=== PATIENT | male | born 1955 | race Caucasian/White ===

== ENCOUNTER 2016-06-19 18:07 | Observation (INO) | payer BC ==
[~2016-06-19] VITALS: Ht 172.7 cm; Wt 102.5 kg
[2016-06-19] MEDS ORDERED: SODIUM CHLORIDE 0.9% 1000ML 500 ML IV STA (18:19)
[2016-06-19 18:30] LABS: HEMATOCRIT 40.8 % (42-52); MEAN CELL VOLUME 78.6 fL (80-100); MEAN CORPUSCULAR HEMOGLOBIN 27.4 pg (25-34); MEAN CORPUSCULAR HGB CONC 34.8 g/dl (32-36); MEAN PLATELET VOLUME 9.7 fL (7.4-10.4); PLATELET COUNT 126 K/uL (130-400); RED BLOOD COUNT 5.19 M/uL (4.7-6.1); WHITE BLOOD COUNT 7.39 K/uL (4.8-10.8)
--- NOTE | 2016-06-19 18:31 | EMERGENCY ROOM VISIT NOTE ---
History Report prepared by Felipe: Leda Gomez Under the Supervision of: Dr. Guerrero Amaro M.D. First contact with patient: 18:12 Chief Complaint: CHEST PAIN Stated Complaint: CHEST PAIN History of Present Illness The patient is a 61 year old male who presents to the Emergency Room with complaints of persistent chest pain that began yesterday and worsened today. He currently rates his discomfort as a 9/10 in severity. The patient states that his chest pain is non-exertional, and states that he notices the pain more with rest. He additionally associates shortness of breath, pain radiating into his back, and difficulty getting a deep breath with his symptoms today. The patient denies the pain radiating into his shoulders or arms. He notes a history of a heart murmur and asthma. The patient denies any history of COPD. Per nursing staff, the patient received 2 nitro, 4 baby aspirin, and 100 mcg of Fentanyl prior to arrival. The patient states that his symptoms were alleviated with the medications. Source of History: patient Onset: yesterday Position: chest Symptom Intensity: 9/10 Timing: worsening, other (persistent) Modifying Factors (Worsening): rest Associated Symptoms: + SOB, + back pain Review of Systems See HPI for pertinent positives & negatives. A total of 10 systems reviewed and were otherwise negative. Past Medical & Surgical Medical Problems: (1) Asthma (2) CAD (coronary artery disease) (3) Chest pain (4) CKD (chronic kidney disease), stage III (5) DM type 2 (diabetes mellitus, type 2) (6) Dyslipidemia (7) Hypertension (8) LBBB (left bundle branch block) (9) Mild aortic stenosis (10) Nonischemic cardiomyopathy Surgical Problems: (1) H/O cardiac catheterization (2) S/p adrenal gland surgery Family History No pertinent family history stated Social History Marital Status: Housing Status: lives with significant other Occupation Status: employed Current/Historical Medications Scheduled Aspirin (Aspirin Ec), 81 MG PO DAILY Carvedilol (Carvedilol), 12.5 MG PO BID Cholecalciferol (Vitamin D3), 2,000 INTER.UNIT PO DAILY Enalapril Maleate (Enalapril Maleate), 1 TAB PO BID Gabapentin (Neurontin), 300 MG PO TID Hydralazine Hcl (Apresoline), 10 MG PO BID Insulin Aspart (Novolog Flexpen), 7 UNITS SQ QAM Insulin Aspart (Novolog Flexpen), 14 UNITS SQ UD Insulin Glargine (Lantus Solostar), 50 UNITS SC HS Rosuvastatin Calcium (Crestor), 40 MG PO DAILY Terazosin (Hytrin), 10 MG PO HS Scheduled PRN Albuterol (Ventolin Hfa), 2 PUFFS INH Q4H PRN for SOB/Wheezing Allergies Coded Allergies: No Known Allergies (Unverified , 06/19/16) Physical Exam Vital Signs Date Time Temp Pulse Resp B/P Pulse Ox O2 Delivery O2 Flow Rate FiO2 06/19/16 22:18 69 22 145/87 97 Nasal Cannula 06/19/16 21:20 66 17 137/81 96 Room Air 06/19/16 19:45 68 169/102 98 2.0 06/19/16 19:34 71 20 171/82 98 2.0 06/19/16 18:25 Room Air 06/19/16 18:24 73 06/19/16 18:22 37.0 20 179/107 95 Room Air Physical Exam GENERAL: Patient is in no acute distress. HEENT: No acute trauma, normocephalic atraumatic, mucous membranes moist, no nasal congestion, no scleral icterus. NECK: No stridor, no adenopathy, no meningismus, trachea is midline. CHEST: Tender across the anterior sternal chest wall and to the lower bilateral anterior ribs. LUNGS: Clear to auscultation bilaterally, no wheeze, no rhonchi, breath sounds equal. HEART: 3/6 systolic murmur with a regular rate and rhythm ABDOMEN: Soft, nontender, bowel sounds positive, no hernias, no peritonitis. EXTREMITIES: No cyanosis or edema, full range of motion of all the joints without pain or difficulty, no signs for acute trauma. NEUROLOGIC: Oriented x 3, no acute motor or sensory deficits, no focal weakness. SKIN: No rash, no jaundice, no diaphoresis. Medical Decision & Procedures ER Provider Diagnostic Interpretation: X-ray results as stated below per interpretation by me and the radiologist: SINGLE VIEW CHEST CLINICAL HISTORY: Atypical chest pain. FINDINGS: An AP, portable, upright chest radiograph is obtained. No prior studies are available for comparison at the time of dictation. The examination is degraded by portable technique, large body habitus, and patient rotation. The heart is mildly enlarged and there is atherosclerotic calcification of the thoracic aorta. The pulmonary vasculature is noncongested. The lungs and pleural spaces are clear. No pneumothorax is seen. The skeletal structures are osteopenic. The bony thorax is grossly intact. Mild degenerative change is noted in the thoracic spine. IMPRESSION: Cardiac enlargement with no acute cardiopulmonary abnormality. Electronically signed by: Guerrero Hebert M.D. 06/19/2016 6:40 PM Dictated Date/Time: 06/19/2016 6:39 PM Laboratory Results 06/19/16 17:30 06/19/16 17:30 Test 06/19/16 17:30 06/19/16 22:25 Red Blood Count 5.19 M/uL (4.7-6.1) Mean Corpuscular Volume 78.6 fL (80-100) Mean Corpuscular Hemoglobin 27.4 pg (25-34) Mean Corpuscular Hemoglobin Concent 34.8 g/dl (32-36) RDW Standard Deviation 37.4 fL (36.4-46.3) RDW Coefficient of Variation 13.1 % (11.5-14.5) Mean Platelet Volume 9.7 fL (7.4-10.4) Prothrombin Time 10.4 SECONDS (9.0-12.0) Prothromb Time International Ratio 1.0 (0.9-1.1) Activated Partial Thromboplast Time 24.1 SECONDS (21.0-31.0) Partial Thromboplastin Ratio 0.9 Anion Gap 10.0 mmol/L (3-11) Est Creatinine Clear Calc Drug Dose 51.0 ml/min Estimated GFR () 49.0 Estimated GFR (Non- 42.3 BUN/Creatinine Ratio 18.8 (10-20) Calcium Level 9.2 mg/dl (8.5-10.1) Magnesium Level 2.0 mg/dl (1.8-2.4) Total Bilirubin 0.6 mg/dl (0.2-1) Aspartate Amino Transf (AST/SGOT) 23 U/L (15-37) Alanine Aminotransferase (ALT/SGPT) 27 U/L (12-78) Alkaline Phosphatase 84 U/L (45-117) Total Protein 6.9 gm/dl (6.4-8.2) Albumin 3.3 gm/dl (3.4-5.0) Globulin 3.6 gm/dl (2.5-4.0) Albumin/Globulin Ratio 0.9 (0.9-2) Lipase 118 U/L (73-393) Troponin I 0.123 ng/ml (0-0.045) Laboratory results reviewed by me. Medications Administered Medications (Trade) Dose Ordered Sig/Larry Route Start Time Stop Time Status Last Admin Dose Admin Sodium Chloride (Nss 1000ml) 500 ml @ 999 mls/hr Q31M STAT IV 06/19/16 18:19 06/19/16 18:49 DC 06/19/16 18:19 999 MLS/HR Nitroglycerin (Nitroglycerin 2% Oint) 1 inch NOW STAT EXT 06/19/16 19:24 06/19/16 19:25 DC 06/19/16 19:41 1 INCH Potassium Chloride (Klor-Con M10) 40 meq NOW STAT PO 06/19/16 22:02 06/19/16 22:03 DC 06/19/16 22:17 40 MEQ Nitroglycerin (Nitrostat Tab) 0.4 mg NOW STAT SL 06/19/16 22:02 06/19/16 22:03 DC 06/19/16 22:17 0.4 MG ECG Indication: chest pain Rate (beats per minute): 96 Rhythm: sinus rhythm Findings: LBBB, no acute ischemic change ED Course 1812: The patient was evaluated in room B11B. A complete history and physical exam was performed. 1818: Ordered 500 ml @ 999 mls/hr IV. 1923: Ordered Nitroglycerin 1 inch EXT. 1925: I reevaluated the patient and he is resting comfortably. I discussed the exam findings with him and I discussed the treatment plan. He verbalized complete understanding and agreement. He will be evaluated for further treatment. 2032: I discussed the patient's case with Nandini Humphries. He is going to evaluate the patient for further treatment. Medical Decision The patient is a 61 year old male who presents to the ED with complaints of chest pain. Differential diagnoses considered include musculoskeletal pain, cardiac ischemia, PE, aortic dissection, RI, pancreatitis, anemia, electrolyte imbalance. There is no leukocytosis or concerning anemia. No significant electrolyte abnormality, some mild renal insufficiency was noted. There was no hepatitis or coagulopathy. EKG shows a sinus rhythm with a left bundle branch block, no acute ischemia. There were no old EKGs to use for comparison. Cardiac enzyme testing times one is slightly elevated, this could be consistent with cardiac strain or injury. Chest x-ray does not show pneumonia or CHF. There was no pancreatitis. The patient presents with chest pain and some shortness of breath. His pain is not necessarily exertional. His pain is somewhat reproducible on exam but he does have cardiac risk factors. I do think further cardiac workup is warranted. The patient had received aspirin and nitroglycerin in route which seems to have helped his discomfort. He was given Nitropaste and IV saline while in the emergency room. I spoke to the patient and the rn case manager. I talked with the on-call hospitalist. Admission/observation is warranted. Consults Time Called: [id number] Consulting Physician: Nandini Humphries Returned Call: 2032 I discussed the patient's case with Nandini Humphries. He is going to evaluate the patient for further treatment. Impression Primary Impression: Precordial chest pain Additional Impressions: Shortness of breath Elevated troponin Scribe Attestation The scribe's documentation has been prepared under my direction and personally reviewed by me in its entirety. I confirm that the note above accurately reflects all work, treatment, procedures, and medical decision making performed by me. Departure Information Dispostion Being Evaluated By Hospitalist Problem Qualifiers
--- NOTE | 2016-06-19 18:41 | DIAGNOSTIC IMAGING REPORT ---
SINGLE VIEW CHEST CLINICAL HISTORY: Atypical chest pain. FINDINGS: An AP, portable, upright chest radiograph is obtained. No prior studies are available for comparison at the time of dictation. The examination is degraded by portable technique, large body habitus, and patient rotation. The heart is mildly enlarged and there is atherosclerotic calcification of the thoracic aorta. The pulmonary vasculature is noncongested. The lungs and pleural spaces are clear. No pneumothorax is seen. The skeletal structures are osteopenic. The bony thorax is grossly intact. Mild degenerative change is noted in the thoracic spine. IMPRESSION: Cardiac enlargement with no acute cardiopulmonary abnormality. Electronically signed by: Guerrero Hebert M.D. 06/19/2016 6:40 PM Dictated Date/Time: 06/19/2016 6:39 PM
[2016-06-19 18:47] LABS: BUN/CREATININE RATIO 18.8 (10-20); CALCIUM 9.2 mg/dl (8.5-10.1); CREATININE 1.7 mg/dl (0.60-1.40); POTASSIUM 3.6 mmol/L (3.5-5.1)
[2016-06-19 19:05] LABS: ALB/GLOB RATIO 0.9 (0.9-2)
[2016-06-19 19:17] LABS: PARTIAL THROMBOPLASTIN RATIO 0.9; PROTHROMBIN TIME (PATIENT) 10.4 SECONDS (9.0-12.0)
[2016-06-19] MEDS ORDERED: NITROGLYCERIN OINT 2% 1GM PACKET EXT STA (19:24)
[2016-06-19] MEDS ORDERED: TERA5CAP PO (19:43)
[2016-06-19] MEDS ORDERED: PROAIR PO (19:43)
[2016-06-19] MEDS ORDERED: ROSU40TA PO (19:43)
[2016-06-19] MEDS ORDERED: ENAL10TA88 PO (19:43)
[2016-06-19] MEDS ORDERED: HYDR-4715 PO (19:43)
[2016-06-19] MEDS ORDERED: ASPI81TA28 PO (19:43)
[2016-06-19] MEDS ORDERED: CHOL20007 PO (19:43)
[2016-06-19] MEDS ORDERED: GABA-113 PO (19:43)
[2016-06-19] MEDS ORDERED: NVLGIPEN SQ (19:43)
[2016-06-19] MEDS ORDERED: NVLGI/PEN SQ (19:43)
[2016-06-19] MEDS ORDERED: CRG25 PO (19:43)
[2016-06-19] MEDS ORDERED: INSDGIPEN SC (19:43)
[2016-06-19] MEDS ORDERED: PRVHFAIN INH (21:59)
[2016-06-19] MEDS ORDERED: ENAL20TA PO (21:59)
[2016-06-19] MEDS ORDERED: NITROGLYCERIN 0.4 MG SL PER TAB CHARGE SL STA (22:02)
[2016-06-19] MEDS ORDERED: POTASSIUM CHLORIDE 10 MEQ TABCR PO STA (22:02)
--- NOTE | 2016-06-19 22:38 | History and Physical ---
History & Physical Date & Time of Service: Jun 19, 2016 at 21:42 Chief Complaint: Chest Pain Primary Care Physician: Nilda Moncada D.O. History of Present Illness Source: patient, clinic records This is a 61 y/o male with PMH of mild , nonobstructive CAD, mild nonischemic cardiomyopathy EF 45-49%, DM type 2, CKD, HTN, HL, who presents to the ED with chest pain. Pt states CP has been intermittent x 2 days. Pain described as "someone sitting on my chest" in substernal area with radiation in band like distribution to his back. Initial episode started when walking in his yard lasting and lasted a few minutes. Then today while sitting watching TV he developed recurrent chest pain which was more severe. He reports associated SOB and dizziness. His called 911. En route patient received nitro spray x 2, Fentanyl, and 4 baby ASA with resolution of his pain. Patient notes recent TESFAYE for past few weeks especially with walking uphill. He admits to blood sugar intermittently elevated due to dietary indiscretion. BP in clinic trended 130s- 140s in Feb and Mar 2016. Has not check BP since then. Has been compliant with BP meds although due for evening meds now. Admits to salting his food. He denies diaphoresis, fevers/ chills, URI, cough, wheezing, nausea, edema, calf pain, abnormal bleeding. No recent travel. Had trigger finger surgery 2-3 weeks ago in [place]. Pt reports prior cardiac catheterization in [facility]. As per Epic record this was done 03/29/2012 showing mild nonobstructive CAD. Past Medical/Surgical History Medical Problems: (1) Asthma Status: Chronic (2) CAD (coronary artery disease) Permanent Comment: nonobstructive Status: Chronic (3) CKD (chronic kidney disease), stage III Status: Chronic (4) DM type 2 (diabetes mellitus, type 2) Status: Chronic (5) Dyslipidemia Status: Chronic (6) Hypertension Status: Chronic (7) LBBB (left bundle branch block) Status: Chronic (8) Mild aortic stenosis Status: Chronic (9) Nonischemic cardiomyopathy Permanent Comment: EF 45-49% on echo 08/2014 Status: Chronic Surgical Problems: (1) H/O cardiac catheterization Permanent Comment: 03/29/2012- mild nonobstructive CAD Status: Chronic (2) S/p adrenal gland surgery Status: Chronic Family History Diabetes mellitus SISTER BROTHER FH: CHF (congestive heart failure) MOTHER Hypertension SON Social History Smoking Status: Never Smoker Smokeless Tobacco Use: Yes (1/2 to 1 can per day) Alcohol Use: occasionally (1 beer per year) Drug Use: none Marital Status: Housing status: lives with significant other Occupational Status: employed Allergies Coded Allergies: No Known Allergies (Unverified , 06/19/16) Home Medications Scheduled Aspirin (Aspirin Ec), 81 MG PO DAILY Carvedilol (Carvedilol), 12.5 MG PO BID Cholecalciferol (Vitamin D3), 2,000 INTER.UNIT PO DAILY Enalapril Maleate (Enalapril Maleate), 1 TAB PO BID Gabapentin (Neurontin), 300 MG PO TID Hydralazine Hcl (Apresoline), 10 MG PO BID Insulin Aspart (Novolog Flexpen), 7 UNITS SQ QAM Insulin Aspart (Novolog Flexpen), 14 UNITS SQ UD Insulin Glargine (Lantus Solostar), 50 UNITS SC HS Rosuvastatin Calcium (Crestor), 40 MG PO DAILY Terazosin (Hytrin), 10 MG PO HS Scheduled PRN Albuterol (Ventolin Hfa), 2 PUFFS INH Q4H PRN for SOB/Wheezing Review of Systems 10 point review of systems performed with pertinent positives and negatives noted in HPI. Physical Exam Vital Signs Date Time Temp Pulse Resp B/P Pulse Ox O2 Delivery O2 Flow Rate FiO2 06/19/16 21:20 66 17 137/81 96 Room Air 06/19/16 19:45 68 169/102 98 2.0 06/19/16 19:34 71 20 171/82 98 2.0 06/19/16 18:25 Room Air 06/19/16 18:24 73 06/19/16 18:22 37.0 20 179/107 95 Room Air General Appearance: WD/WN, no apparent distress, + pertinent finding (pleasant alert 61 year old male, poor hygiene) Head: normocephalic, atraumatic Eyes: normal inspection, sclerae normal ENT: normal ENT inspection, hearing grossly normal Neck: supple, no JVD, trachea midline Respiratory/Chest: lungs clear, normal breath sounds, no respiratory distress, no accessory muscle use Cardiovascular: regular rate, rhythm, no murmur, normal peripheral pulses Abdomen/GI: normal bowel sounds, non tender, soft Extremities/Musculoskelatal: no calf tenderness, no pedal edema Neurologic/Psych: alert, normal mood/affect, oriented x 3, + pertinent finding (grossly nonfocal) Skin: normal color, warm/dry Diagnostics Laboratory Results Results Past 24 Hours Test 06/19/16 17:30 06/19/16 21:32 Range/Units White Blood Count 7.39 4.8-10.8 K/uL Red Blood Count 5.19 4.7-6.1 M/uL Hemoglobin 14.2 14.0-18.0 g/dL Hematocrit 40.8 42-52 % Mean Corpuscular Volume 78.6 80-100 fL Mean Corpuscular Hemoglobin 27.4 25-34 pg Mean Corpuscular Hemoglobin Concent 34.8 32-36 g/dl RDW Standard Deviation 37.4 36.4-46.3 fL RDW Coefficient of Variation 13.1 11.5-14.5 % Platelet Count 126 130-400 K/uL Mean Platelet Volume 9.7 7.4-10.4 fL Prothrombin Time 10.4 9.0-12.0 SECONDS Prothromb Time International Ratio 1.0 0.9-1.1 Activated Partial Thromboplast Time 24.1 21.0-31.0 SECONDS Partial Thromboplastin Ratio 0.9 Sodium Level 140 136-145 mmol/L Potassium Level 3.6 3.5-5.1 mmol/L Chloride Level 104 98-107 mmol/L Carbon Dioxide Level 26 21-32 mmol/L Anion Gap 10.0 3-11 mmol/L Blood Urea Nitrogen 32 7-18 mg/dl Creatinine 1.70 0.60-1.40 mg/dl Est Creatinine Clear Calc Drug Dose 51.0 ml/min Estimated GFR () 49.0 Estimated GFR (Non- 42.3 BUN/Creatinine Ratio 18.8 10-20 Random Glucose 228 70-99 mg/dl Calcium Level 9.2 8.5-10.1 mg/dl Total Bilirubin 0.6 0.2-1 mg/dl Aspartate Amino Transf (AST/SGOT) 23 15-37 U/L Alanine Aminotransferase (ALT/SGPT) 27 12-78 U/L Alkaline Phosphatase 84 45-117 U/L Troponin I 0.097 0-0.045 ng/ml Total Protein 6.9 6.4-8.2 gm/dl Albumin 3.3 3.4-5.0 gm/dl Globulin 3.6 2.5-4.0 gm/dl Albumin/Globulin Ratio 0.9 0.9-2 Lipase 118 73-393 U/L Diagnostic Radiology SINGLE VIEW CHEST CLINICAL HISTORY: Atypical chest pain. FINDINGS: An AP, portable, upright chest radiograph is obtained. No prior studies are available for comparison at the time of dictation. The examination is degraded by portable technique, large body habitus, and patient rotation. The heart is mildly enlarged and there is atherosclerotic calcification of the thoracic aorta. The pulmonary vasculature is noncongested. The lungs and pleural spaces are clear. No pneumothorax is seen. The skeletal structures are osteopenic. The bony thorax is grossly intact. Mild degenerative change is noted in the thoracic spine. IMPRESSION: Cardiac enlargement with no acute cardiopulmonary abnormality. EKG sinus rhythm with LBBB; hx of LBBB noted in Epic Impression Assessment and Plan CHEST PAIN Rule out ACS; risk factors include hx nonobstructive CAD on 2011 cath, DM, HTN, HL Treated with nitro x 2, fentanyl, and ASA 324 mg en route Nitro paste and nitro tab given in ER Currently chest pain free Initial troponin 0.09 EKG- LBBB- chronic CXR- no acute findings Trend serial cardiac enzymes Continue aspirin, statin, beta effie, VENKATA-I Consult cardiology HYPERTENSION BP initially elevated to 170s/100s -> improved to 140s/80s after nitro given in ER In clinic ran 130s-140s systolic in Feb and Mar 2016 Continue carvedilol, enalapril, hydralazine, terazosin DM TYPE 2 Uncontrolled; A1c 10.8 in 2015 On Lantus 50 units HS Insulin sliding scale coverage Discussed about improving diet DYSLIPIDEMIA Continue statin CKD STAGE III Creat stable from baseline Avoid nephrotoxins ASTHMA Not in acute exacerbation CODE STATUS Full code per my discussion with the patient Patient seen in collaboration with Dr. Vazquez. Please see his addendum for additional recommendations. Assessment/Plan IM ATTENDING " Patient seen and examined. Preceding documentation by Ms. Kassandra Singh PA-C, reviewed. FINAL ASSESSMENT AND PLAN as follows: 1. Chest pain hypertensive urgency versus unstable angina history of nonocclusive coronary artery disease as per records. 2. Chronic systolic heart failure secondary to ischemic cardiomyopathy, ejection fraction of 50% as of 2014 stress echo seems to be compensated. 3. Hyperlipidemia, on statin therapy. 4. DM2 insulin requiring, suboptimal control as of recent HgA1c of 10.1 (March 2016). 5. Chronic renal insufficiency. Creatinine at baseline of 1.7. 6. thrombocytopenia Observation PCU. Facilitate home blood pressure medications. Continue aspirin, beta effie, statin meds, nitro p.r.n. Follow cardiac markers 2D echo, Cardiology consult for chest pain. (Patient known to Dr. Mittal) Further eval/management of cp as per Cardiology. Continue basal insulin adjusted for n.p.o/sips status in anticipation of procedure in AM ISS BG goal 140-180. carb count coverage indicated for suboptimal blood sugar control. DVT prophylaxis, SCDs re thrombocytopenia May need IV heparin with progression of troponinemia signifying ACS Full code.
[2016-06-19] MEDS ORDERED: CARVEDILOL 25 MG TAB PO ONE (22:58)
[2016-06-19] MEDS ORDERED: ONDANSETRON INJ 2 MG/ML 2 ML VIAL IV PRN (23:00)
[2016-06-19] MEDS ORDERED: HYDROmorphone INJ 0.5 MG/0.5 ML SYR IV PRN (23:00)
[2016-06-19] MEDS ORDERED: LACTATED RINGER'S 1000ML 1,000 ML IV SCH (23:00)
[2016-06-19] MEDS ORDERED: GLUCOSE 10 TABS/TUBE PO PRN (23:00)
[2016-06-19] MEDS ORDERED: TRAMADOL HCL 50 MG TAB PO PRN (23:00)
[2016-06-19] MEDS ORDERED: DEXTROSE 50% 50 ML SYR IV PRN (23:00)
[2016-06-19] MEDS ORDERED: LORAZEPAM 2 MG/ML 1 ML VIAL IV PRN (23:00)
[2016-06-19] MEDS ORDERED: GLUCOSE 40% GEL 15 GM TUBE PO PRN (23:00)
[2016-06-19] MEDS ORDERED: NITROGLYCERIN 0.4 MG SL PER TAB CHARGE SL PRN (23:00)
[2016-06-19] MEDS ORDERED: GLUCAGON FOR INJ 1 MG VIAL SQ PRN (23:00)
[2016-06-19] MEDS ORDERED: INSULIN GLARGINE SOLOSTAR 100 UNITS/ML 3 ML PEN SC ONE (23:30)
[2016-06-19] MEDS ORDERED: LORAZEPAM INJ 0.5 MG in SYRINGE 0.75 ML IV PRN (23:30)
[2016-06-19] MEDS ORDERED: INSULIN ASPART 100 UNITS/ML 3 ML PEN SC ONE (23:30)
[2016-06-19 23:51] VITALS: BP 169/71; PULSE 65; TEMP 37.1; O2SAT 96; Ht 172.7 cm; Wt 102.5 kg
[2016-06-19 23:59] VITALS: O2SAT 95
[2016-06-20] VITALS (9 sets, daily range): BP systolic 126–158; BP diastolic 63–86; PULSE 58–86; TEMP 36.6–36.9; O2SAT 94–97
[2016-06-20] MEDS ORDERED: IV FLUIDS COMPLETED PRN (00:30)
[2016-06-20 01:41] LABS: BASO % 0.2 %; BASO ABS # 0.01 K/uL (0-0.2); COMPLETE YES; EOS % 2.9 %; HEMATOCRIT 34.6 % (42-52); IG% 0.2 %; LYMPH % 22.5 %; LYMPH ABS # 1.33 K/uL (1.2-3.4); MEAN CELL VOLUME 77.4 fL (80-100); MEAN CORPUSCULAR HEMOGLOBIN 27.3 pg (25-34); MEAN CORPUSCULAR HGB CONC 35.3 g/dl (32-36); MEAN PLATELET VOLUME 8.8 fL (7.4-10.4); MONO % 8.4 %; NEUT % 65.8 %; PLATELET COUNT 105 K/uL (130-400); RED BLOOD COUNT 4.47 M/uL (4.7-6.1); WHITE BLOOD COUNT 5.92 K/uL (4.8-10.8)
[2016-06-20 01:58] LABS: BUN/CREATININE RATIO 19.6 (10-20); CALCIUM 8.6 mg/dl (8.5-10.1); CREATININE 1.6 mg/dl (0.60-1.40); POTASSIUM 3.8 mmol/L (3.5-5.1)
[2016-06-20 02:06] LABS: CHOLESTEROL/HDL RATIO 2.2
--- NOTE | 2016-06-20 05:40 | HISTORY & PHYSICAL EXAMINATION ---
DATE OF ADMISSION: 06/19/2016 IM ATTENDING " Patient seen and examined. Preceding documentation by Ms. Kassandra Singh PA-C, reviewed. FINAL ASSESSMENT AND PLAN as follows: 1. Chest pain hypertensive urgency versus unstable angina history of nonocclusive coronary artery disease as per records. 2. Chronic systolic heart failure secondary to ischemic cardiomyopathy, ejection fraction of 50% as of 2014 stress echo seems to be compensated. 3. Hyperlipidemia, on statin therapy. 4. DM2 insulin requiring, suboptimal control as of recent HgA1c of 10.1 (March 2016). 5. Chronic renal insufficiency. Creatinine at baseline of 1.7. 6. thrombocytopenia Observation PCU. Facilitate home blood pressure medications. Continue aspirin, beta effie, statin meds, nitro p.r.n. Follow cardiac markers 2D echo, Cardiology consult for chest pain. (Patient known to Dr. Mittal) Further eval/management of cp as per Cardiology. Continue basal insulin adjusted for n.p.o/sips status in anticipation of procedure in AM ISS BG goal 140-180. carb count coverage indicated for suboptimal blood sugar control. DVT prophylaxis, SCDs re thrombocytopenia May need IV heparin with progression of troponinemia signifying ACS Full code. MTDD
[2016-06-20] MEDS: INSULIN ASPART 100 UNITS/ML 3 ML PEN SC SCH ×4 (07:00→20:51)
--- NOTE | 2016-06-20 08:56 | ECHOCARDIOGRAM REPORT ---
*NOTICE TO RECEIVING CONSTITUTION PARTY AGENCY This information is strictly Confidential and protected under [place] law. [place] law prohibits you from making any further disclosure of this information unless further disclosure is expressly permitted by the written consent of the person to whom it pertains or is authorized by law. A general authorization for the release of medical or other information is not sufficient for this purpose. Hospital accepts no responsibility if the information is made available to any other person, INCLUDING THE PATIENT. Interpretation Summary * Name: NIRANJAN VILLALTA Study Date: 06/20/2016 06:52 AM BP: 158/86 mmHg * Patient Location: S240-1 HR: 62 * : 1955 (M/d/yyyy) Gender: Male Height: 68 in * Age: 61 yrs Ethnicity: [place] Weight: 214 lb * Ordering Physician: Claudio Vazquez * Referring Physician: Self, Referred * Performed By: Han Long * * Reason For Study: CHEST PAIN * BSA: 2.1 m2 * -- Conclusions -- * The left ventricle is normal in size. * There is moderate concentric left ventricular hypertrophy. * There is moderate global hypokinesis of the left ventricle. * Septal motion is consistent with conduction abnormality. * Ejection Fraction = 35-40%. * The aortic valve leaflets are modrately calcified and restricted in mobiltiy. * Moderate to borderline severe valvular aortic stenosis. * Trace aortic regurgitation. * There is mild mitral regurgitation. Procedure Details * A complete two-dimensional transthoracic echocardiogram was performed (2D, M-mode, Doppler and color flow Doppler). Left Ventricle * The left ventricle is normal in size. * There is moderate concentric left ventricular hypertrophy. * Ejection Fraction = 35-40%. * There is moderate global hypokinesis of the left ventricle. * Septal motion is consistent with conduction abnormality. Right Ventricle * The right ventricle is normal in size and function. Atria * The left atrial size is normal. * Right atrial size is normal. * No ASD detected; PFO is not assessed. Mitral Valve * There is mild mitral annular calcification. * There is no mitral valve stenosis. * There is mild mitral regurgitation. Tricuspid Valve * The tricuspid valve is normal. * There is no tricuspid stenosis. * There is trace tricuspid regurgitation. Aortic Valve * The aortic valve is trileaflet. * The aortic valve leaflets are modrately calcified and restricted in mobiltiy. * Moderate valvular aortic stenosis. * Trace aortic regurgitation. Pulmonic Valve * The pulmonic valve is not well visualized. Great Vessels * The aortic root is normal size. Pericardium/Pleural * There is no pericardial effusion. Great Vessels * Normal inferior vena cava diameter and respiratory variation suggests normal central venous pressure. MMode 2D Measurements and Calculations IVSd 1.5 cm IVSs 1.6 cm LVIDd 5.2 cm LVIDs 4.2 cm LVPWd 2.0 cm LVPWs 2.1 cm IVS/LVPW 0.73 FS 19.2 % EDV(Teich) 129.1 ml ESV(Teich) 78.4 ml EF(Teich) 39.2 % EDV(cubed) 140.0 ml ESV(cubed) 73.9 ml EF(cubed) 47.2 % % IVS thick 10.4 % % LVPW thick 2.1 % LV mass(C)d 434.7 grams LV mass(C)dI 206.7 grams/m\S\2 LV mass(C)s 351.8 grams LV mass(C)sI 167.3 grams/m\S\2 CO(Teich) 3.0 l/min CI(Teich) 1.4 l/min/m\S\2 SV(Teich) 50.6 ml SI(Teich) 24.1 ml/m\S\2 CO(cubed) 4.0 l/min CI(cubed) 1.9 l/min/m\S\2 SV(cubed) 66.0 ml SI(cubed) 31.4 ml/m\S\2 Ao root diam 3.8 cm Ao root area 11.2 cm\S\2 ACS 0.56 cm LA dimension 3.8 cm asc Aorta Diam 3.4 cm LA/Ao 1.0 LVOT diam 2.2 cm LVOT area 4.0 cm\S\2 LVAd ap4 29.0 cm\S\2 LVLd ap4 8.2 cm EDV(MOD-sp4) 85.0 ml LVAs ap4 22.1 cm\S\2 LVLs ap4 7.9 cm ESV(MOD-sp4) 53.0 ml EF(MOD-sp4) 37.6 % LVAd ap2 27.6 cm\S\2 LVLd ap2 8.7 cm EDV(MOD-sp2) 78.0 ml LVAs ap2 20.9 cm\S\2 LVLs ap2 7.9 cm ESV(MOD-sp2) 48.0 ml EF(MOD-sp2) 38.5 % CO(MOD-sp4) 1.9 l/min CI(MOD-sp4) 0.91 l/min/m\S\2 SV(MOD-sp4) 32.0 ml SI(MOD-sp4) 15.2 ml/m\S\2 CO(MOD-sp2) 1.8 l/min CI(MOD-sp2) 0.86 l/min/m\S\2 SV(MOD-sp2) 30.0 ml SI(MOD-sp2) 14.3 ml/m\S\2 Doppler Measurements and Calculations MV E max bryan 100.3 cm/sec MV A max bryan 68.5 cm/sec MV E/A 1.5 Ao V2 max 275.3 cm/sec Ao max PG 30.8 mmHg Ao max PG (full) 28.1 mmHg Ao V2 mean 180.2 cm/sec Ao mean PG 15.3 mmHg Ao mean PG (full) 13.8 mmHg Ao V2 VTI 61.6 cm IAN(I,A) 1.2 cm\S\2 IAN(I,D) 1.2 cm\S\2 IAN(V,A) 1.2 cm\S\2 IAN(V,D) 1.2 cm\S\2 LV V1 max PG 2.7 mmHg LV V1 mean PG 1.5 mmHg LV V1 max 82.5 cm/sec LV V1 mean 57.2 cm/sec LV V1 VTI 19.3 cm MR max bryan 399.3 cm/sec MR max PG 63.8 mmHg SV(Ao) 690.6 ml SI(Ao) 328.3 ml/m\S\2 SV(LVOT) 76.7 ml SI(LVOT) 36.5 ml/m\S\2 PA V2 max 108.6 cm/sec PA max PG 4.7 mmHg
[2016-06-20] MEDS: GABAPENTIN 300 MG CAP PO SCH ×3 (09:00→20:48)
[2016-06-20] MEDS ORDERED: HydrALAZINE 10 MG TAB PO SCH (09:00)
[2016-06-20] MEDS ORDERED: INSULIN GLARGINE SOLOSTAR 100 UNITS/ML 3 ML PEN SC SCH ×2 (09:00→21:00)
--- NOTE | 2016-06-20 10:34 | CARDIOLOGY CONSULTATION ---
DATE OF CONSULTATION: 06/20/2016 The patient seen and examined. Chart, medications, telemetry reviewed. INDICATIONS: Chest pain. HISTORY OF PRESENT ILLNESS: The patient is a 61-year-old male with complex past medical history which includes nonischemic cardiomyopathy with moderate left ventricular dysfunction with prior diagnostic cardiac catheterization in 2011 demonstrating no obstructive coronary disease, who carries an underlying history of moderate aortic stenosis, longstanding severe and labile hypertension with past adrenalectomy, type 2 diabetes mellitus with peripheral neuropathy, chronic renal insufficiency, dyslipidemia on therapy. The patient presents now noting 2 episodes of hard sharp pain radiating in a band-like distribution across his upper epigastric area around to his back. Symptoms lasted 2 or 3 minutes in duration 1 week prior and then admitting episode occurred while sitting quietly watching TV. Symptoms were severe enough and concerning enough that 911 was summoned. The patient was given fentanyl and nitroglycerin en route with improvement in complaints. He is currently comfortable this morning, has had no further recurrence of issues, has been up in his room, has not had anything to eat overnight. Notes no fevers, chills, sweats, cough, hoarseness, wheeze or hemoptysis. Notes no melena or hematochezia, dysuria or hematuria. Has stopped checking his blood pressures at home with difficulties with machine. Notes no rash or arthritic complaint. Notes no headache or visual changes. Notes activity levels are generally sedentary about home and job, previously without profound limitation. Biggest issues recently have been worsening peripheral neuropathy. Notes sugars have been relatively well controlled. ALLERGIES: None. MEDICATIONS: Prior to hospitalization were aspirin 81 mg per day, carvedilol 12.5 mg p.o. daily, vitamin D 2000 units every day, enalapril 20 mg p.o. b.i.d., gabapentin 300 mg t.i.d., hydralazine 10 mg b.i.d., NovoLog insulin, rosuvastatin 40 mg p.o. every day, terazosin 10 mg at bedtime. PAST SURGICAL HISTORY: Notable for prior adrenalectomy on the left, prior diagnostic cardiac catheterization in 2011. FAMILY HISTORY: Positive for coronary artery disease in multiple family members. SOCIAL HISTORY: The patient is a resident of [place]. He works for the [employer]. He chews approximately 1 can of snuff per day. He drinks very rare alcoholic beverages. Uses no significant [id number] medications. Does attempt to follow low-sodium diet but with recent noncompliance. PHYSICAL EXAMINATION: VITAL SIGNS: Heart rate is 80, blood pressure is 132/67 and equal in both arms. HEENT: Normocephalic, atraumatic. Nares without discharge. Throat was clear. NECK: Thin with heavy wu. There is no distinct jugular venous distention. There is referred murmur to the base of the right carotid. LUNGS: Generally clear to auscultation. CARDIOVASCULAR: Regular with a harsh grade 2-3/6 systolic ejection murmur. S2 is present. ABDOMEN: Soft, nontender. There is no palpable hepatosplenomegaly. There are no abdominal bruits. EXTREMITIES: Femoral pulses and distal pulses are 2+/4. There are no femoral bruits. There is no peripheral edema. NEUROLOGIC: The patient is answering questions, moving extremities with strength, complains of chronic neuropathic changes to the feet. DATA: Chest x-ray reveals no infiltrate or edema with moderate cardiomegaly. LABORATORY DATA: On presentation, sodium is 140, potassium is 3.6, chloride is 104, bicarbonate is 26, BUN is 32, creatinine is 1.7. AST and ALT are normal. Troponin I has been elevated at 0.1 with essentially flat troponin since admission. Cholesterol is 116, LDL is 46, HDL is 53. EKG reveals sinus rhythm with left bundle-branch block, wide QRS of 184 milliseconds, occasional ventricular ectopic beats. Echocardiogram today demonstrates moderate left ventricular hypertrophy. There is a dyssynergic contraction pattern of the septum consistent with conduction abnormality. There is moderate diffuse left ventricular dysfunction, EF 35-40%. Aortic valve was calcified and restricted in mobility with moderate aortic stenosis, trace aortic insufficiency, mild mitral insufficiency. Telemetry reveals no arrhythmias since admission. IMPRESSION: A 61-year-old male with sharp chest discomfort, underlying history of nonischemic cardiomyopathy with prior diagnostic cardiac catheterization now 5 years past without obstructive disease. He has underlying moderate left ventricular dysfunction, labile hypertension with hypertensive urgency. History of at least moderate aortic stenosis, calcific. Discussed the options of management. I have recommended stress nuclear imaging, though unavailable for today. Plan will be to treat hypertension, adjust medical therapies, ambulate in hallway if clinically stable and no further recurrences, likely proceed with stress nuclear imaging as an outpatient. If the patient has further symptoms or complaints, we will consider proceeding directly to diagnostic cardiac catheterization to assess both aortic valve and exclude ischemic heart disease. The patient is agreeable to plan. We will liberalize diet today. Thank you.
[2016-06-20] MEDS: ROSUVASTATIN CALCIUM 20 MG TAB PO SCH (11:14)
[2016-06-20] MEDS: ASPIRIN 81 MG ECTAB PO SCH (11:16)
[2016-06-20] MEDS: ENALAPRIL MALEATE 10 MG TAB PO SCH ×2 (11:16→20:48)
[2016-06-20] MEDS: CARVEDILOL 12.5 MG TAB PO SCH ×2 (11:17→20:49)
[2016-06-20] MEDS: ISOSORBIDE DINITRATE 20 MG TAB PO SCH ×2 (11:55→17:12)
--- NOTE | 2016-06-20 13:57 | Progress Note ---
Internal Med Progress Note Date of Service: Jun 20, 2016. Provider Documentation: SUBJECTIVE: Patient is seen and examined at bedside. States having right sided sharp chest pain intermittently and had some dizziness while ambulating. Denies any SOB, cough, fever, chills. OBJECTIVE: Vital Signs-as noted below Physical Exam: General Appearance:Moderately built and nourished, no apparent distress Head: normocephalic, Atraumatic Eyes: normal inspection, EOMI, PERRLA Neck: supple, no JVD, Trachea midline Respiratory/Chest: Normal, CTA, No accessory muscle use Cardiovascular: S1, S2, + systolic murmur Abdomen/GI:Soft, Non tender, Bowel sounds present Extremities/Musculoskelatal:normal inspection, no edema Neurologic/Psych:AAOX3, grossly no focal neurological deficits Skin: normal color, warm Lab data as noted below. ASSESSMENT & PLAN: CHEST PAIN: Rule out ACS Risk factors:hx nonobstructive CAD on 2011 cath, DM, HTN, HL Treated with nitro x 2, fentanyl, and ASA 324 mg en route: which help resolve symptoms Currently chest pain free Troponin 0.09, 0.12, 0.10, 0.98 EKG- LBBB- chronic CXR- no acute findings Appreciate cardiology input Continue aspirin, statin, beta effie, VENKATA-I, Imdur Plan to do Nuclear stress test as outpatient if chest pain resolved If symptoms reoccur: likely plan for diagnostic cardiac catheterization on thursday to assess both aortic valve and exclude ischemic heart disease Currently reports right sided chest pain, not related to respiration and denies any resp. symptoms (No cough, SOB, wheezing) States having intermittently dizziness with ambulation HYPERTENSION BP initially elevated to 170s/100s -> improved to 140s/80s after nitro given in ER In clinic ran 130s-140s systolic in Feb and Mar 2016 Continue carvedilol, enalapril, hydralazine, terazosin Hydralazine increased to TID DM II Uncontrolled; A1c 10.8 in 2015 On Lantus 50 units HS Insulin sliding scale coverage diabetic diet DYSLIPIDEMIA Continue statin CKD STAGE III Creat stable from baseline Avoid nephrotoxins ASTHMA Not in acute exacerbation CODE STATUS Full code Disposition: Plan to discharge home if chest pain free and no plan for intervention Vital Signs: Date Time Temp Pulse Resp B/P Pulse Ox O2 Delivery O2 Flow Rate FiO2 06/20/16 12:00 94 Room Air 06/20/16 11:44 36.7 72 16 128/76 96 06/20/16 08:19 36.8 81 18 132/67 95 06/20/16 08:00 94 Room Air 06/20/16 04:08 36.8 62 16 158/86 94 06/20/16 04:00 94 Room Air 06/19/16 23:59 95 Room Air 06/19/16 23:51 37.1 65 20 169/71 96 Room Air 06/19/16 22:33 76 20 123/80 92 Room Air 06/19/16 22:18 69 22 145/87 97 Nasal Cannula 06/19/16 21:20 66 17 137/81 96 Room Air 06/19/16 19:45 68 169/102 98 2.0 06/19/16 19:34 71 20 171/82 98 2.0 06/19/16 18:25 Room Air 06/19/16 18:24 73 06/19/16 18:22 37.0 20 179/107 95 Room Air Lab Results: Results Past 24 Hours Test 06/19/16 17:30 06/19/16 22:25 06/19/16 23:45 06/20/16 01:35 Range/Units White Blood Count 7.39 5.92 4.8-10.8 K/uL Red Blood Count 5.19 4.47 4.7-6.1 M/uL Hemoglobin 14.2 12.2 14.0-18.0 g/dL Hematocrit 40.8 34.6 42-52 % Mean Corpuscular Volume 78.6 77.4 80-100 fL Mean Corpuscular Hemoglobin 27.4 27.3 25-34 pg Mean Corpuscular Hemoglobin Concent 34.8 35.3 32-36 g/dl RDW Standard Deviation 37.4 37.0 36.4-46.3 fL RDW Coefficient of Variation 13.1 13.2 11.5-14.5 % Platelet Count 126 105 130-400 K/uL Mean Platelet Volume 9.7 8.8 7.4-10.4 fL Prothrombin Time 10.4 9.0-12.0 SECONDS Prothromb Time International Ratio 1.0 0.9-1.1 Activated Partial Thromboplast Time 24.1 21.0-31.0 SECONDS Partial Thromboplastin Ratio 0.9 Sodium Level 140 144 136-145 mmol/L Potassium Level 3.6 3.8 3.5-5.1 mmol/L Chloride Level 104 109 98-107 mmol/L Carbon Dioxide Level 26 27 21-32 mmol/L Anion Gap 10.0 8.0 3-11 mmol/L Blood Urea Nitrogen 32 31 7-18 mg/dl Creatinine 1.70 1.60 0.60-1.40 mg/dl Est Creatinine Clear Calc Drug Dose 51.0 55.8 ml/min Estimated GFR () 49.0 52.7 Estimated GFR (Non- 42.3 45.5 BUN/Creatinine Ratio 18.8 19.6 10-20 Random Glucose 228 113 70-99 mg/dl Calcium Level 9.2 8.6 8.5-10.1 mg/dl Magnesium Level 2.0 1.8-2.4 mg/dl Total Bilirubin 0.6 0.2-1 mg/dl Aspartate Amino Transf (AST/SGOT) 23 15-37 U/L Alanine Aminotransferase (ALT/SGPT) 27 12-78 U/L Alkaline Phosphatase 84 45-117 U/L Troponin I 0.097 0.123 0.103 0-0.045 ng/ml Total Protein 6.9 6.4-8.2 gm/dl Albumin 3.3 3.4-5.0 gm/dl Globulin 3.6 2.5-4.0 gm/dl Albumin/Globulin Ratio 0.9 0.9-2 Lipase 118 73-393 U/L Bedside Glucose 131 70-99 mg/dl Neutrophils (%) (Auto) 65.8 % Lymphocytes (%) (Auto) 22.5 % Monocytes (%) (Auto) 8.4 % Eosinophils (%) (Auto) 2.9 % Basophils (%) (Auto) 0.2 % Neutrophils # (Auto) 3.90 1.4-6.5 K/uL Lymphocytes # (Auto) 1.33 1.2-3.4 K/uL Monocytes # (Auto) 0.50 0.11-0.59 K/uL Eosinophils # (Auto) 0.17 0-0.5 K/uL Basophils # (Auto) 0.01 0-0.2 K/uL Immature Granulocyte % (Auto) 0.2 % Immature Granulocyte # (Auto) 0.01 0.00-0.02 K/uL Triglycerides Level 86 0-150 mg/dl Cholesterol Level 116 0-200 mg/dl HDL Cholesterol 53 mg/dl LDL Cholesterol, Calculated 46 mg/dl VLDL Cholesterol, Calculated 17 mg/dl Cholesterol/HDL Ratio 2.2 Test 06/20/16 06:40 06/20/16 06:42 06/20/16 07:26 06/20/16 11:17 Range/Units Iron Level 54 35-175 mcg/dl Ferritin 77.0 8.0-388.0 ng/ml Troponin I 0.098 0-0.045 ng/ml Bedside Glucose 61 100 70 70-99 mg/dl
[2016-06-20] MEDS: HydrALAZINE 10 MG TAB PO SCH ×2 (14:49→20:48)
[2016-06-21 00:06] VITALS: BP 135/70; PULSE 56; TEMP 36.9; O2SAT 92
[2016-06-21 04:01] VITALS: BP 114/66; PULSE 55; TEMP 37; O2SAT 94
[2016-06-21 05:58] LABS: BASO % 0.2 %; BASO ABS # 0.01 K/uL (0-0.2); COMPLETE YES; EOS % 3.5 %; HEMATOCRIT 36.4 % (42-52); LYMPH % 27.2 %; LYMPH ABS # 1.26 K/uL (1.2-3.4); MEAN CELL VOLUME 79.1 fL (80-100); MEAN CORPUSCULAR HEMOGLOBIN 27.6 pg (25-34); MEAN CORPUSCULAR HGB CONC 34.9 g/dl (32-36); MEAN PLATELET VOLUME 9.7 fL (7.4-10.4); MONO % 11.4 %; NEUT % 57.7 %; PLATELET COUNT 109 K/uL (130-400); WHITE BLOOD COUNT 4.63 K/uL (4.8-10.8)
[2016-06-21 06:35] LABS: BUN/CREATININE RATIO 16.2 (10-20); CALCIUM 8.7 mg/dl (8.5-10.1); CREATININE 1.7 mg/dl (0.60-1.40); POTASSIUM 3.9 mmol/L (3.5-5.1)
[2016-06-21] MEDS: ISOSORBIDE DINITRATE 20 MG TAB PO SCH ×2 (07:43→11:57)
[2016-06-21] MEDS: INSULIN ASPART 100 UNITS/ML 3 ML PEN SC SCH ×2 (07:47→11:53)
[2016-06-21] MEDS: ROSUVASTATIN CALCIUM 20 MG TAB PO SCH (07:49)
[2016-06-21] MEDS: HydrALAZINE 10 MG TAB PO SCH ×2 (07:49→14:15)
[2016-06-21] MEDS: CARVEDILOL 12.5 MG TAB PO SCH (07:49)
[2016-06-21] MEDS: ENALAPRIL MALEATE 10 MG TAB PO SCH (07:50)
[2016-06-21] MEDS: GABAPENTIN 300 MG CAP PO SCH ×2 (07:51→14:16)
[2016-06-21] MEDS: ASPIRIN 81 MG ECTAB PO SCH (07:51)
[2016-06-21 08:08] VITALS: BP 130/73; PULSE 66; TEMP 37; O2SAT 98
--- NOTE | 2016-06-21 10:45 | PROGRESS NOTE ---
DATE: 06/21/2016 The patient seen and examined. Chart, medications, telemetry reviewed. SUBJECTIVE: The patient had no symptoms or complaints overnight. Mild lightheadedness this morning on initial sitting but now has been ambulatory in the hallway both last night and this morning without complaints. Notes no chest pains. Notes not tachypalpitations. Notes no orthopnea. Overall, has been feeling well since admission. OBJECTIVE: VITAL SIGNS: Telemetry reveals no arrhythmias. Heart rate 66, blood pressure is 130/73. NECK: Notable for heavy wu, but no distinct jugular venous distention. LUNGS: Reveal mildly diminished breath sounds but are clear. CARDIOVASCULAR: Regular with a grade 2-3/6 systolic murmur heard best at the right upper sternal border. There is no diastolic murmur. There is no S3 gallop. ABDOMEN: Soft, nontender. EXTREMITIES: Without cyanosis or clubbing. There is no peripheral edema. LABORATORY DATA: Echocardiogram as noted demonstrates moderate left ventricular dysfunction, EF 35-40%, calcified aortic valve with moderate possibly greater aortic stenosis, trace aortic and mitral insufficiency. LABORATORY STUDIES: Sodium this morning is 144, potassium is 3.9, chloride is 108, bicarbonate is 27, BUN is 28, creatinine is 1.7, consistent with prior studies. IMPRESSION: A 61-year-old male with complex history of nonischemic cardiomyopathy with prior diagnostic cardiac catheterization now 5 years past. He has moderate left ventricular dysfunction as well as greater aortic stenosis, who presented with issues as follows: 1. Hypertensive urgency. 2. Chest pain, back pain. 3. Chronic renal insufficiency with flat troponins. 4. Moderate aortic stenosis, greater on echocardiogram, with chronic left ventricular dysfunction. RECOMMENDATIONS: Given clinical stability, the patient may be discharged to home with planned followup as an outpatient with a stress nuclear imaging given multiple underlying cardiac risk factors to exclude ischemic burden. The patient will require stress nuclear imaging. This is being arranged for 06/25/2016, at [facility]. No other changes other than the adjustments made on initial presentation for hypertension control, specifically hydralazine increased to 10 mg t.i.d. and isosorbide 20 mg t.i.d. added to regimen. All other therapies will be continued. The patient to avoid strenuous activities until stress test performed. Anticipate followup with cardiology after stress testing in the next 1-2 week's time.
--- NOTE | 2016-06-21 12:21 | Progress Note ---
Internal Med Progress Note Date of Service: Jun 21, 2016. Provider Documentation: SUBJECTIVE: Patient is seen and examined at bedside. Feels well. Denies any SOB, chest pain , dizziness, cough, fever, chills. OBJECTIVE: Vital Signs-as noted below Physical Exam: General Appearance:Moderately built and nourished, no apparent distress Head: normocephalic, Atraumatic Eyes: normal inspection, EOMI, PERRLA Neck: supple, no JVD, Trachea midline Respiratory/Chest: Normal, CTA, No accessory muscle use Cardiovascular: S1, S2, + systolic murmur Abdomen/GI:Soft, Non tender, Bowel sounds present Extremities/Musculoskelatal:normal inspection, no edema Neurologic/Psych:AAOX3, grossly no focal neurological deficits Skin: normal color, warm Lab data as noted below. ASSESSMENT & PLAN: CHEST PAIN: Rule out ACS Risk factors:hx nonobstructive CAD on 2011 cath, DM, HTN, HL Treated with nitro x 2, fentanyl, and ASA 324 mg en route: which help resolve symptoms Currently chest pain free Troponin 0.09, 0.12, 0.10, 0.98 EKG- LBBB- chronic CXR- no acute findings Appreciate cardiology input Continue aspirin, statin, beta effie, VENKATA-I, Imdur Plan to do Nuclear stress test as outpatient on 06/25/2016, at [facility] HYPERTENSION BP initially elevated to 170s/100s -> improved to 140s/80s after nitro given in ER In clinic ran 130s-140s systolic in Feb and Mar 2016 Continue carvedilol, enalapril, hydralazine, terazosin Hydralazine increased to TID per cardiology recommendations DM II Uncontrolled; A1c 10.8 in 2015 On Lantus 50 units HS Insulin sliding scale coverage diabetic diet DYSLIPIDEMIA Continue statin CKD STAGE III Creat stable from baseline Avoid nephrotoxins ASTHMA Not in acute exacerbation CODE STATUS Full code Disposition: Plan to discharge home today Follow up with on 06/23/16 at 12:50pm Follow up with your makeup sales consultant Isabel Murphy on 06/26/16 at 2:45 pm Plan to do Nuclear stress test as outpatient on 06/25/2016, at [facility] Vital Signs: Date Time Temp Pulse Resp B/P Pulse Ox O2 Delivery O2 Flow Rate FiO2 06/21/16 08:08 37.0 66 18 130/73 98 06/21/16 08:00 Room Air 06/21/16 04:01 37.0 55 18 114/66 94 06/21/16 04:00 Room Air 06/21/16 00:06 36.9 56 18 135/70 92 06/21/16 00:01 Room Air 06/20/16 20:00 95 Room Air 06/20/16 19:24 36.6 58 18 150/68 95 Room Air 06/20/16 16:18 Room Air 06/20/16 16:08 36.9 86 18 126/63 97 Lab Results: Results Past 24 Hours Test 06/20/16 16:37 06/20/16 19:59 06/21/16 05:06 06/21/16 07:02 Range/Units Bedside Glucose 164 159 122 70-99 mg/dl White Blood Count 4.63 4.8-10.8 K/uL Red Blood Count 4.60 4.7-6.1 M/uL Hemoglobin 12.7 14.0-18.0 g/dL Hematocrit 36.4 42-52 % Mean Corpuscular Volume 79.1 80-100 fL Mean Corpuscular Hemoglobin 27.6 25-34 pg Mean Corpuscular Hemoglobin Concent 34.9 32-36 g/dl Platelet Count 109 130-400 K/uL Mean Platelet Volume 9.7 7.4-10.4 fL Neutrophils (%) (Auto) 57.7 % Lymphocytes (%) (Auto) 27.2 % Monocytes (%) (Auto) 11.4 % Eosinophils (%) (Auto) 3.5 % Basophils (%) (Auto) 0.2 % Neutrophils # (Auto) 2.67 1.4-6.5 K/uL Lymphocytes # (Auto) 1.26 1.2-3.4 K/uL Monocytes # (Auto) 0.53 0.11-0.59 K/uL Eosinophils # (Auto) 0.16 0-0.5 K/uL Basophils # (Auto) 0.01 0-0.2 K/uL RDW Standard Deviation 37.9 36.4-46.3 fL RDW Coefficient of Variation 13.3 11.5-14.5 % Immature Granulocyte % (Auto) 0.0 % Immature Granulocyte # (Auto) 0.00 0.00-0.02 K/uL Sodium Level 144 136-145 mmol/L Potassium Level 3.9 3.5-5.1 mmol/L Chloride Level 108 98-107 mmol/L Carbon Dioxide Level 27 21-32 mmol/L Anion Gap 9.0 3-11 mmol/L Blood Urea Nitrogen 28 7-18 mg/dl Creatinine 1.70 0.60-1.40 mg/dl Est Creatinine Clear Calc Drug Dose 52.3 ml/min Estimated GFR () 49.0 Estimated GFR (Non- 42.3 BUN/Creatinine Ratio 16.2 10-20 Random Glucose 122 70-99 mg/dl Calcium Level 8.7 8.5-10.1 mg/dl Test 06/21/16 11:36 Range/Units Bedside Glucose 248 70-99 mg/dl
[2016-06-21] MEDS ORDERED: ISR20 PO (12:35)
[2016-06-21] MEDS ORDERED: HYDR-4715 PO (12:35)
[2016-06-21 12:36] VITALS: BP 124/70; PULSE 63; TEMP 37; O2SAT 95
--- NOTE | 2016-06-21 12:39 | Discharge Summary ---
Discharge Summary Date of Service Jun 21, 2016. Discharge Summary Admission Date: Jun 19, 2016 at 22:29 Discharge Date: Jun 21, 2016 Discharge Disposition: Home Principal Diagnosis: Chest pain R/O ACS Procedures: CXR: Cardiac enlargement with no acute cardiopulmonary abnormality. Consultations: Cardiology Pending Studies/Follow-Up: Follow up with on 06/23/16 at 12:50pm Follow up with your speech language pathologist travel Isabel Murphy on 06/26/16 at 2:45 pm Plan to do Nuclear stress test as outpatient on 06/25/2016, at [facility] Medication Reconciliation New Medications: Isosorbide Dinitrate (Isordil) 20 Mg Tab 20 MG PO TID@0700,1200,1700 for 30 Days, #90 TAB 1 Refill Changed Medications: Hydralazine Hcl (Apresoline) 10 Mg Tab 10 MG PO TID for 30 Days, #90 TAB (Changed from: BID) Continued Medications: Albuterol (Ventolin Hfa) 60 Puffs/5400 Mcg Aers 2 PUFFS INH Q4H PRN for SOB/Wheezing Aspirin (Aspirin Ec) 81 Mg Tab 81 MG PO DAILY Carvedilol (Carvedilol) 25 Mg Tab 12.5 MG PO BID Cholecalciferol (Vitamin D3) 2,000 Unit Tab 2000 INTER.UNIT PO DAILY for 90 Days, TAB 3 Refills Enalapril Maleate (Enalapril Maleate) 20 Mg Tab 1 TAB PO BID for 90 Days, #180 TAB 1 Refill Gabapentin (Neurontin) 300 Mg Cap 300 MG PO TID, CAP Insulin Aspart (Novolog Flexpen) 100 Units/Ml Inj 7 UNITS SQ QAM Insulin Aspart (Novolog Flexpen) 100 Units/Ml Inj 14 UNITS SQ UD with lunch and dinner Insulin Glargine (Lantus Solostar) 100 Unit/Ml Inj 50 UNITS SC HS, PEN Rosuvastatin Calcium (Crestor) 40 Mg Tab 40 MG PO DAILY, TAB Terazosin (Hytrin) 5 Mg Cap 10 MG PO HS, CAP Admission Information HPI (per Admitting provider): This is a 61 y/o male with PMH of mild , nonobstructive CAD, mild nonischemic cardiomyopathy EF 45-49%, DM type 2, CKD, HTN, HL, who presents to the ED with chest pain. Pt states CP has been intermittent x 2 days. Pain described as "someone sitting on my chest" in substernal area with radiation in band like distribution to his back. Initial episode started when walking in his yard lasting and lasted a few minutes. Then today while sitting watching TV he developed recurrent chest pain which was more severe. He reports associated SOB and dizziness. His called 911. En route patient received nitro spray x 2, Fentanyl, and 4 baby ASA with resolution of his pain. Patient notes recent TESFAYE for past few weeks especially with walking uphill. He admits to blood sugar intermittently elevated due to dietary indiscretion. BP in clinic trended 130s- 140s in Feb and Mar 2016. Has not check BP since then. Has been compliant with BP meds although due for evening meds now. Admits to salting his food. He denies diaphoresis, fevers/ chills, URI, cough, wheezing, nausea, edema, calf pain, abnormal bleeding. No recent travel. Had trigger finger surgery 2-3 weeks ago in [place]. Pt reports prior cardiac catheterization in [facility]. As per [facility] record this was done 03/29/2012 showing mild nonobstructive CAD. Physical Exam (per Admitting): General Appearance: WD/WN, no apparent distress, + pertinent finding ( pleasant alert 61 year old male, poor hygiene) Head: normocephalic, atraumatic Eyes: normal inspection, sclerae normal ENT: normal ENT inspection, hearing grossly normal Neck: supple, no JVD, trachea midline Respiratory/Chest: lungs clear, normal breath sounds, no respiratory distress, no accessory muscle use Cardiovascular: regular rate, rhythm, no murmur, normal peripheral pulses Abdomen/GI: normal bowel sounds, non tender, soft Extremities/Musculoskelatal: no calf tenderness, no pedal edema Neurologic/Psych: alert, normal mood/affect, oriented x 3, + pertinent finding (grossly nonfocal) Skin: normal color, warm/dry Hospital Course CHEST PAIN: Rule out ACS Risk factors:hx nonobstructive CAD on 2011 cath, DM, HTN, HL Treated with nitro x 2, fentanyl, and ASA 324 mg en route: which help resolve symptoms Currently chest pain free Troponin 0.09, 0.12, 0.10, 0.98 EKG- LBBB- chronic CXR- no acute findings Appreciate cardiology input Continue aspirin, statin, beta effie, VENKATA-I, Imdur Plan to do Nuclear stress test as outpatient on 06/25/2016, at [facility] HYPERTENSION BP initially elevated to 170s/100s -> improved to 140s/80s after nitro given in ER In clinic ran 130s-140s systolic in Feb and Mar 2016 Continue carvedilol, enalapril, hydralazine, terazosin Hydralazine increased to TID per cardiology recommendations DM II Uncontrolled; A1c 10.8 in 2015 On Lantus 50 units HS Insulin sliding scale coverage diabetic diet DYSLIPIDEMIA Continue statin CKD STAGE III Creat stable from baseline Avoid nephrotoxins ASTHMA Not in acute exacerbation CODE STATUS Full code Disposition: Plan to discharge home today Follow up with on 06/23/16 at 12:50pm Follow up with your speech language pathologist travel Isabel Murphy on 06/26/16 at 2:45 pm Plan to do Nuclear stress test as outpatient on 06/25/2016, at [facility] Total time spent on discharge = 40 minutes This includes examination of the patient, discharge planning, medication reconciliation, and communication with other providers. Discharge Instructions Discharge Instructions Admission Reason for Admission: Chest Pain Discharge Discharge Diagnosis / Problem: Chest pain R/O ACS Discharge Goals Goal(s): Decrease discomfort, Improve function Activity Recommendations Activity Limitations: resume your previous activity Exercise/Sports Limitations: as tolerated . Instructions / Follow-Up Instructions / Follow-Up Follow up with on 06/23/16 at 12:50pm Follow up with your speech language pathologist travel Isabel Murphy on 06/26/16 at 2:45 pm Plan to do Nuclear stress test as outpatient on 06/25/2016, at [facility] Take medications as prescribed Seek immediate medical attention if chest pain reoccurs or worsens Current Hospital Diet Patient's current hospital diet: Diabetes Type 2 Diet Discharge Diet Recommended Diet: Diabetes Type 2 Diet Pending Studies Studies pending at discharge: no Laboratory Results Lipid Panel Test 06/20/16 01:35 Range/Units Triglycerides Level 86 0-150 mg/dl Cholesterol Level 116 0-200 mg/dl HDL Cholesterol 53 mg/dl Cholesterol/HDL Ratio 2.2 LDL Cholesterol, Calculated 46 mg/dl Medical Emergencies . Who to Call and When: Medical Emergencies: If at any time you feel your situation is an emergency, please call 911 immediately. . Non-Emergent Contact Non-Emergency issues call your: Primary Care Provider, Computer Assembler Call Non-Emergent contact if: you have a fever, your pain is not controlled, your pain is worsening, your pain is unusual for you, you have any medication questions . . "Provider Documentation" section prepared by Aj Ames. VTE Core Measure Inpt VTE Proph given/why not?: SCD's
[2016-06-21 14:19] VITALS: BP 124/70; PULSE 63; TEMP 37; O2SAT 95
[2016-07-02] MEDS ORDERED: HYDR-4322 PO (07:53)
[2016-07-02] MEDS ORDERED: HYDR-5688 PO (07:53)
[2016-10-06] MEDS ORDERED: ISOS20TA15 PO (12:29)
[2016-11-17] MEDS ORDERED: FURO-85 PO (10:19)
[2016-11-17] MEDS ORDERED: LORA-741 PO (10:19)
[2016-11-17] MEDS ORDERED: OXYC-57 PO (10:19)
[2016-11-17] MEDS ORDERED: PANT40TA PO (14:33)
== END 2016-06-21 16:33 | disposition home or self-care (01) ==
LOC: ENRESERVDT → ENRESERVTM → EDBD 18:07 → C.EDB 18:10 → C.2T 22:29
PROVIDERS: ADMIT Internal Medicine; ATTEND Internal Medicine
DX: R07.9 Chest pain, unspecified (principal); I13.0 Hypertensive heart and chronic kidney disease with heart failure and stage 1 through stage 4 chronic kidney disease, or unspecified chronic kidney disease; I50.22 Chronic systolic (congestive) heart failure; I35.0 Nonrheumatic aortic (valve) stenosis; J45.909 Unspecified asthma, uncomplicated; D69.6 Thrombocytopenia, unspecified; I25.10 Atherosclerotic heart disease of native coronary artery without angina pectoris; F17.220 Nicotine dependence, chewing tobacco, uncomplicated; N18.3 Chronic kidney disease, stage 3 (moderate); E11.40 Type 2 diabetes mellitus with diabetic neuropathy, unspecified; E78.5 Hyperlipidemia, unspecified; I42.9 Cardiomyopathy, unspecified; Z79.82 Long term (current) use of aspirin; Z79.899 Other long term (current) drug therapy; Z79.4 Long term (current) use of insulin; Z83.3 Family history of diabetes mellitus; Z82.49 Family history of ischemic heart disease and other diseases of the circulatory system

== ENCOUNTER → 2016-07-02 | Day surgery (SDC) | payer BC ==
[~2016-07-02] VITALS: Ht 172.7 cm; Wt 99.0 kg
[~2016-07-02] MED LIST: ACETAMINOPHEN 325 MG TAB PO PRN; ASPI81TA28 PO; ATROPINE SULFATE 0.1 MG/ML 5ML SYR IV PRN; CHOL20007 PO; CRG25 PO; ENAL20TA PO; FENTANYL CITRATE INJ 50 MCG/1 ML 2 ML VIAL ONE; FURO-85 PO; GABA-113 PO; HYDR-4322 PO; HYDR-4715 PO; HYDR-5688 PO; INSDGIPEN SC; ISOS20TA15 PO; ISR20 PO; LORA-741 PO; MIDAZOLAM HCL 1 MG/ML 2ML VIAL ONE; NVLGI/PEN SQ; NVLGIPEN SQ; ONDANSETRON INJ 2 MG/ML 2 ML VIAL IV PRN; OXYC-57 PO; PANT40TA PO; PRVHFAIN INH; ROSU40TA PO; SODIUM CHLORIDE 0.9% 1000ML 1,000 ML IV SCH; SODIUM CHLORIDE 0.9% 1000ML 250 ML IV PRN; TERA5CAP PO
[2016-07-02 08:13] VITALS: BP 115/66; PULSE 62; TEMP 36.5; O2SAT 94; Ht 172.7 cm; Wt 99.0 kg
--- NOTE | 2016-07-02 09:12 | History & Physical Bridge Note ---
H&P Re-Evaluation Bridge Note: I have examined the patient, reviewed the History & Physical and in the interval since the performance of the History & Physical I have noted the following changes of clinical significance: No changes noted
[2016-07-02 10:20] LABS: ISTAT ARTERIAL BLOOD GAS HCO3 27 meq/L (19-24); ISTAT ARTERIAL BLOOD GAS PCO2 51 mmHg (35-46); ISTAT ARTERIAL BLOOD GAS PO2 35 mmHg (80-95); ISTAT ARTERIAL BLOOD GAS pH 7.32 (7.35-7.45); ISTAT CARBON DIOXIDE 28 mEq/l (24-31)
[2016-07-02 10:20] LABS: ISTAT ARTERIAL BLOOD GAS HCO3 26 meq/L (19-24); ISTAT ARTERIAL BLOOD GAS PCO2 46 mmHg (35-46); ISTAT ARTERIAL BLOOD GAS PO2 71 mmHg (80-95); ISTAT ARTERIAL BLOOD GAS pH 7.35 (7.35-7.45); ISTAT CARBON DIOXIDE 27 mEq/l (24-31)
--- NOTE | 2016-07-02 10:34 | Cardiac Catheterization ---
Procedure Note Procedure Date Jul 02, 2016. Pre-Procedure Diagnosis Positive Stress Test, Valvular Disease, Cardiomyopathy AUC Score 9 Post-Procedure Diagnosis Mild CAD, Decreased LV Systolic Function, Normal Intracardiac Pressures Procedure(s) Performed Coronary Angiography, Left Heart Cath, Right Heart Cath, LV Angiography Lead Principal Technical Architect Dr. Zurita Build Technician(s) None Estimated Blood Loss None Summary of Findings Mild CAD, Mild , Nonischemic cardiomyopathy Hemodynamics Rest Ao: 165/85 Final Ao: 166/90 LV: 172/26 RA: 11 RV: 40/14 PA: 48/29 PW: 23 Recommendations Medical therapy and/or Counseling Specimens None Radiation Exposure (mGy) 1493 Contrast (mls) 160 Fluids (cc crystalloids) 82 Procedural Complication(s) None Disposition Informatics Educator Holding/Recovery ACC Data Cardiac Status Clinical evaluation leading to the procedure CAD Presntation: Positive Stress Test Anginal Classification: CCS II Heart Failure: No Cardiogenic Shock w/in 24Hrs: No Cardiac Arrest w/in 24Hrs: No Imaging studies past 6 months: Yes Stress studies past 6 months: Yes Stress Testing w/SPECT MPI: Yes - Positive Cardiac CTA: No Coronary Anatomy Dominant: Right Left Main (% Stenosis): Normal LAD (% Stenosis): Normal OM2 (% Stenosis): Ostial (50) R PL1 (% Stenosis): Ostial (20) Left Ventricular Angiography EF (%): 30 Mitral Regurgitation: None Diagnostic Status: Elective Closure Device Percutaneous Entry Location: Femoral Closure Device: Mynx Recommendations: Medical therapy and/or Counseling
--- NOTE | 2016-07-02 10:37 | Discharge Instructions ---
Discharge Instructions Procedure Procedure Date: Jul 02, 2016. Reason for Visit: Abn Stress Test * To Do. Discharge Discharge Date: Jul 02, 2016. Discharge Diagnosis: Nonischemic cardiomyopathy, mild aortic stenosis, mild coronary artery disease Last Recorded Wt (Kilograms): 99 Anesthesia Post Anesthesia Instructions: If you have had General Anesthesia or IV Sedation: * Do not drive today. * Resume driving when surgeon permits. * Do not make important decisions or sign legal documents today. * Call surgeon for: 1. Temperature elevations greater than 101 degrees F. 2. Uncontrollable pain. 3. Excessive bleeding. 4. Persistent nausea and vomiting. 5. Medication intolerance (nausea, vomiting or rash). * For nausea and vomiting use only clear liquids such as: tea, soda, bouillon until nausea subsides, then gradually increase diet as tolerated. * If you have any concerns or questions, call your surgeon's office. If physician is unavailable and it is an emergency, call 911 or go to the nearest emergency room. Instructions Activity Recommendations: limitations Recommended Home Diet: resume previous diet Allergies: Coded Allergies: No Known Allergies (Unverified , 06/19/16) Provider Instructions ACTIVITY RECOMMENDATIONS: It is common to feel weak and fatigue for a few days. * Do not drive or operate any motorized equipment for the next three days. * Limit stair usage (2 or 3 trips a day only) for the next three days. * Do not lift anything heavier than 10 pounds for the next three days. * Do not engage in vigorous exercise or any sports for the next five days. * You may shower the day after your procedure, but do not immerse the area for three days. Cleanse the site gently with soap and water. SPECIAL CARE INSTRUCTIONS: * You may replace the pressure dressing or band-aid the morning after the procedure. * After your procedure, it is normal to have a small bruise or small lump at the site. Examine your site daily for any change in the bruise or lump, redness, swelling, drainage or numbness. Notify your doctor if any change. BLEEDING: * If there is a small amount of bleeding at the site, lie down and apply firm pressure with a clean cloth for ten minutes. When the bleeding stops, lie quietly keeping the procedure limb straight for six hours. Notify your doctor as soon as possible. * If the bleeding does not stop after ten minutes or if there is a large amount of bleeding or spurting, call 911 immediately. Continue to lie down and hold firm pressure until help arrives. SKIN IRRITATION: * You may experience some redness and/or swelling in the area where radiation was administered. If any skin irritation occurs, please contact your family physician. FOLLOW UP VISIT: Keep any scheduled doctor appointments. Follow Up Follow-up with: Office will call with follow-up appointment Dario Woods Recommendations: Call your doctor if: * Temperature above 101 degrees * Pain not relieved by pain medicine ordered * There is increased drainage or redness from any incision * You have any unanswered questions or concerns. Your Doctors Instructions noted above were prepared by provider Christian Zurita. Patient Signature Section: Patient Instructions Signature Page Willis Delarosa Patient (or Guardian) Signature/Date: I have read and understand the instructions given to me by my caregivers. Caregiver/RN/Doctor Signature/Date: The above-named patient and/or guardian has received patient instructions on this date. + Original Patient Signature Page (only) stays with chart. Please make copy for patient.
--- NOTE | 2016-07-02 13:10 | CARDIAC CATH REPORT ---
PROCEDURE: 1. Left heart catheterization. 2. Right heart catheterization. 3. Coronary angiography. 4. Left ventriculography. HISTORY OF PRESENT ILLNESS: This is a 61-year-old male patient who has a known cardiomyopathy and a left bundle branch block. He has been having symptoms of shortness of breath and chest discomfort. He underwent an echocardiogram that suggested moderately severe aortic stenosis and a pharmacologic nuclear stress test that suggested ischemia. The patient is here to evaluate for coronary artery disease as well as the aortic stenosis. PROCEDURE SUMMARY: The patient was seen and evaluated in the holding area of the lab pack chemist. After informed consent was obtained, he was taken to the cardiac catheterization lab, where he was prepped and draped in the usual manner for a right transfemoral approach. Preformed 5-Nauruan diagnostic catheters were utilized for the coronary angiograms. A 5-Nauruan pigtail catheter was utilized for left ventriculogram. The [place]-Brian catheter was utilized for the right heart pressures and cardiac outputs. Following the procedure, the arterial site was closed with a Mynx device and the patient was taken from the cardiac catheterization lab to the holding area of the lab pack chemist in stable condition. HEMODYNAMIC DATA: Cardiac output by thermal dilution is 5.7 liters per minute. The right ventricular pressure is 40/14 mmHg, right atrial pressure is a mean of 9 mmHg, pulmonary artery pressure is 48/29 mmHg, pulmonary capillary wedge pressure is a mean of 23 mmHg, and central aortic pressure is 165/82. Left ventricular pressure is 173/29 mmHg. The gradient across the aortic valve is 16 mmHg and the estimated aortic valve area is 1.82 square cm. LEFT VENTRICULOGRAM: The left ventricle has global hypokinesis with an estimated left ventricular ejection fraction of 30%. The mitral valve is competent. CORONARY ANGIOGRAPHY: Selective injections of the left coronary artery revealed the left main trunk to be patent. The left circumflex artery bifurcates into 2 marginal branches. The first marginal branch is widely patent. Second marginal branch, which supplies the posterior myocardium, has a 50% ostial stenosis. The LAD system is widely patent. Selective injections of the right coronary artery reveal it to be dominant. The right coronary artery is patent with a small first posterolateral branch with a 20% ostial stenosis. SUMMARY: The patient has a nonischemic cardiomyopathy with reduced global systolic function. The aortic stenosis is mild. The patient has mild coronary artery disease as described above. Recommendations are for medical management of the patient's cardiomyopathy, valvular heart disease and coronary artery disease.
[2016-07-02 14:00] VITALS: BP 168/81; PULSE 64; O2SAT 97
== END | disposition home or self-care (01) ==
LOC: C.CATH 08:04
PROVIDERS: ATTEND Internal Medicine Interventional Cardiology
DX: I25.10 Atherosclerotic heart disease of native coronary artery without angina pectoris (principal); I42.8 Other cardiomyopathies; I35.0 Nonrheumatic aortic (valve) stenosis; I44.7 Left bundle-branch block, unspecified; N18.3 Chronic kidney disease, stage 3 (moderate); I12.9 Hypertensive chronic kidney disease with stage 1 through stage 4 chronic kidney disease, or unspecified chronic kidney disease; E11.9 Type 2 diabetes mellitus without complications; E78.5 Hyperlipidemia, unspecified

== ENCOUNTER 2016-07-22 10:01 | Emergency (ER) | payer BC ==
[~2016-07-22] VITALS: Ht 172.7 cm; Wt 104.5 kg
[~2016-07-22 10:01] MED LIST changes: -ACETAMINOPHEN 325 MG TAB PO PRN; -ATROPINE SULFATE 0.1 MG/ML 5ML SYR IV PRN; -FENTANYL CITRATE INJ 50 MCG/1 ML 2 ML VIAL ONE; -FURO-85 PO; +HYDR-2977 PO; -HYDR-4322 PO; -HYDR-4715 PO; -ISOS20TA15 PO; -LORA-741 PO; -MIDAZOLAM HCL 1 MG/ML 2ML VIAL ONE; -ONDANSETRON INJ 2 MG/ML 2 ML VIAL IV PRN; -OXYC-57 PO; -PANT40TA PO; -SODIUM CHLORIDE 0.9% 1000ML 1,000 ML IV SCH; -SODIUM CHLORIDE 0.9% 1000ML 250 ML IV PRN
[2016-07-22 10:10] VITALS: TEMP 36.5; Ht 172.7 cm; Wt 104.5 kg
[2016-07-22 10:26] VITALS: O2SAT 96
[2016-07-22 10:37] LABS: HEMATOCRIT 38.6 % (42-52); MEAN CELL VOLUME 78.5 fL (80-100); MEAN CORPUSCULAR HEMOGLOBIN 27.4 pg (25-34); MEAN PLATELET VOLUME 9.4 fL (7.4-10.4); PLATELET COUNT 134 K/uL (130-400); RED BLOOD COUNT 4.92 M/uL (4.7-6.1); WHITE BLOOD COUNT 5.47 K/uL (4.8-10.8)
--- NOTE | 2016-07-22 10:37 | DIAGNOSTIC IMAGING REPORT ---
CHEST ONE VIEW PORTABLE CLINICAL HISTORY: Atypical chest pain COMPARISON STUDY: June 19, 2016 FINDINGS: The cardiac and mediastinal contours remain stable. There is no failure. There is no focal pulmonary consolidation. No pleural effusions are visualized.[ IMPRESSION: No active disease in the chest. Electronically signed by: Indra Aguilar M.D. 07/22/2016 10:36 AM Dictated Date/Time: 07/22/2016 10:35 AM
[2016-07-22 10:54] LABS: BUN/CREATININE RATIO 17.1 (10-20); CALCIUM 9.2 mg/dl (8.5-10.1); CREATININE 1.9 mg/dl (0.60-1.40); POTASSIUM 4.1 mmol/L (3.5-5.1)
[2016-07-22 11:08] LABS: CKMB/CK RATIO 1.7 (0-3.0)
[2016-07-22] MEDS ORDERED: SODIUM CHLORIDE 0.9% 500ML 500 ML IV STA (11:13)
[2016-07-22] MEDS ORDERED: MoRPHine SULFATE 10 MG/ML CARP/VIAL IV STA (11:56)
[2016-07-22] MEDS ORDERED: ALBUTEROL 0.083% NEBU SOLN 3 ML VIAL INH STA (12:42)
[2016-07-22] MEDS ORDERED: METHYLPREDNISOLONE IV 40 MG in SYRINGE 0 ML IV SCH (12:45)
[2016-07-22] MEDS ORDERED: LEVAQUIN 500MG / 100ML D5W IV ONE (12:45)
--- NOTE | 2016-07-22 14:14 | DIAGNOSTIC IMAGING REPORT ---
ABDOMINAL ULTRASOUND, RIGHT UPPER QUADRANT HISTORY: Right upper quadrant abdominal pain. COMPARISON: None. FINDINGS: Pancreas: Not well visualized due to overlying bowel gas. Liver: Slightly echogenic consistent with mild fatty change. Gallbladder: No gallbladder wall thickening. No gallstones. CBD: 7 mm. Right kidney: No hydronephrosis. The kidneys are echogenic consistent with medical renal disease. IMPRESSION: 1. Normal gallbladder. No gallstones. 2. The common bile duct measures 7 mm which is mildly dilated for age. 3. Mild hepatic steatosis. Electronically signed by: Tremaine Blackmon M.D. 07/22/2016 2:13 PM Dictated Date/Time: 07/22/2016 2:11 PM
--- NOTE | 2016-07-22 16:21 | DIAGNOSTIC IMAGING REPORT ---
NUCLEAR MEDICINE VENTILATION/PERFUSION SCAN CLINICAL HISTORY: Chest pain COMPARISON: Dyspnea TECHNIQUE: For the ventilation portion of this exam, 30.0 mCi of DTPA was inhaled at 3:30. Immediately following inhalation, imaging of the chest was carried out in the anterior, posterior, left lateral, right lateral, LPO, RPO, YARELI and MALLOY projections. For the perfusion portion of exam, 5.3 mCi of technetium 99m MAA was injected IV at 350 immediately following injection, imaging of the chest was carried out in the same projections. FINDINGS: Slightly heterogeneous lung perfusion. Mild central air trapping. No evidence for a major ventilation perfusion defect. IMPRESSION: Low probability of pulmonary most. Mild central air trapping. Electronically signed by: Billy Phillips M.D. 07/22/2016 4:20 PM Dictated Date/Time: 07/22/2016 4:18 PM
[2016-07-22 16:34] VITALS: BP 182/104; PULSE 56; O2SAT 96
--- NOTE | 2016-07-22 17:24 | CARDIOLOGY CONSULTATION ---
DATE OF CONSULTATION: 07/22/2016 REFERRING PHYSICIAN: Dr. Corona Montes. REASON FOR CONSULTATION: Chest discomfort. HISTORY OF PRESENT ILLNESS: Mr. Delarosa is a 61-year-old gentleman who is known to the cardiology service. He carries a history of nonischemic cardiomyopathy with chronic chest pain and nonobstructive coronary disease by recent cardiac catheterization. He was at the medical center at [place] today for routine blood draw. Upon arrival, he became acutely lightheaded. He was escorted by a nurse to an examination room. He was then evaluated by a member of the family practice service. After evaluation, the patient complained of chronic chest and epigastric discomfort, which he states has been present for 4 days. His lightheadedness gradually resolved. Due to his epigastric and chest pain ER evaluation was recommended. He was transported to [facility] by EMS. The patient was seen and examined at the bedside in the ER. His cardiac enzymes are negative. He describes a mild, light band-like discomfort radiating from his right upper quadrant to his left upper quadrant. He states this discomfort has been constant for nearly 4 days. The discomfort is similar with the pain that prompted his hospitalization nearly 1 month ago. At that time he was evaluated by cardiology and outpatient Lexiscan nuclear stress test was performed. The stress test demonstrated inferior scar without ischemia. This was a change from previous studies and a cardiac catheterization was performed. A right and left heart catheterization was performed by Dr. Zurita on July 02. The coronary angiography demonstrated nonobstructive coronary disease with elevated left ventricular end-diastolic pressure, mild to moderate pulmonary hypertension with elevated pulmonary capillary wedge pressure. The patient was prescribed furosemide 20 mg daily subsequent to that procedure. The patient was evaluated post procedure by cardiology in the medical center in [place]. He reports intermittent lightheadedness primarily when changing position from seated to standing or supine to seated. He has documented orthostatic blood pressure changes in the past. He feels these symptoms have worsened since prescription of furosemide. His creatinine is mildly elevated today at 1.9, which is above baseline. Denies orthopnea, PND, lower extremity edema, or claudication. D-dimer is elevated. He offers no complaints at this time. REVIEW OF SYSTEMS: The pertinent positive noted above, a comprehensive 10-system review is otherwise negative. PAST MEDICAL HISTORY: 1. Nonischemic cardiomyopathy with nonobstructive coronary artery disease, confirmed by cardiac catheterization x3, most recent 07/02/2016. 2. Type 2 diabetes with neuropathy. 3. Dyslipidemia. 4. Moderate aortic stenosis by echocardiography, mild aortic stenosis by cardiac catheterization. 5. Chronic kidney disease, stage 3. 6. Hypertension. 7. Actinic keratoses. PAST SURGICAL HISTORY: 1. Cardiac catheterization x3. 2. Kidney/ureteral surgery. SOCIAL HISTORY: He does not smoke cigarettes, however, chews tobacco daily. Denies alcohol or illicit drug use. FAMILY HISTORY: Negative for premature CAD or sudden cardiac . Mother has a history of congestive heart failure. ALLERGIES: No known drug allergies. CURRENT OUTPATIENT MEDICATIONS: 1. Furosemide 20 mg daily. 2. Hydralazine 10 mg twice daily. 3. Terazosin 5 mg at bedtime. 4. Percocet as needed. 5. Isordil 20 mg t.i.d. 6. Insulin Aspart 7 units with breakfast, 14 units at lunch and dinner. 7. Gabapentin 300 mg 3 times daily. 8. Enalapril 20 mg twice daily. 9. Crestor 12.5 mg 2 times daily. 10. Lantus 50 units subQ at bedtime. 11. Albuterol inhaler every 4 hours as needed. 12. Aspirin 81 mg daily. ECG on admission demonstrates sinus rhythm with a left bundle-branch block. CHEST X-RAY ON ADMISSION: No acute process. LABORATORY DATA: Point of care troponin 0.30. Troponin I is 0.025. Sodium 139, potassium 4.1, chloride 104, CO2 of 25, BUN 32, creatinine 1.90, glucose is 215. White blood cell count 5.47, hemoglobin is 13.5, platelet count is 134. Telemetry demonstrates sinus rhythm and sinus bradycardia. PHYSICAL EXAMINATION: VITAL SIGNS: Temperature is 36.5 degrees centigrade, pulse is 60 beats per minute and regular, respiratory rate 20 breaths per minute, blood pressure currently 135/82. SAO2 92% on room air. GENERAL: NAD, awake, alert and oriented x3. THROAT: His mucous membranes are moist. There is no scleral icterus. Conjunctivae are pink. NECK: Supple. There is no JVD, no HJR, no carotid bruit. HEART: Regular with a normal S1 and S2. There is no murmur, rub, or gallop. LUNGS: Demonstrate clear breath sounds without rales, rhonchi, or wheeze. ABDOMEN: Soft, nontender. No rebound or guarding. Normal bowel sounds. EXTREMITIES: Warm and dry. There is no clubbing, cyanosis or edema. NEUROLOGIC: Demonstrates no focal deficit, cranial nerves are grossly intact. FINAL IMPRESSION: 1. A 61-year-old male presents with acute lightheadedness related to orthostatic hypotension, dehydration with mild volume depletion secondary to addition of diuretic therapy. Creatinine mildly elevated above baseline. No significant bradycardia or pauses observed on telemetry. 2. Atypical epigastric and lower chest discomfort -- chronic. Cardiac enzymes are not significantly elevated. 3. Elevated D-dimer. 4. Nonischemic cardiomyopathy with compensated systolic heart failure. 5. Mild nonobstructive coronary artery disease by recent cardiac catheterization on 07/02/2016. 6. Diabetes type 2 with neuropathy. 7. Left bundle-branch block -- chronic. 8. Labile hypertension. PLAN AND RECOMMENDATIONS: I had a long discussion with the patient regarding his positional lightheadedness which is reproduced on exam. The patient appears to be mildly dehydrated with elevated creatinine due to the recent addition of diuretic therapy. I have instructed to begin taking his Lasix every other day. He has received a 250 mL bolus of normal saline, is feeling much better. I also personally reviewed cardiac catheterization images and discussed the results with the patient. No evidence of significant obstructive coronary disease. His atypical epigastric discomfort does not represent an acute coronary syndrome at this time. He appears compensated from a heart failure perspective. D-dimer is elevated, and a V/Q scan will be performed for further evaluation. I assessed his groin which demonstrated no ecchymosis, there is no calf tenderness or Homans sign. No further cardiac testing at this time. The patient will follow up at the [facility] in [place] with Isabel Bergman within the next 7-10 days as scheduled. Thank you for allowing me to take part in the care of your patient.
--- NOTE | 2016-07-22 18:08 | EMERGENCY ROOM VISIT NOTE ---
History Report prepared by Felipe: Ignacio Butterfield Under the Supervision of: Dr. Corona Montes D.O. First contact with patient: 10:58 Chief Complaint: CARDIAC ASSESSMENT Stated Complaint: CHEST PAIN Nursing Triage Summary: 3 weeks ago pt had cardiac cath that was negative today went to pcp for routine blood test, pt bp was low in 90s systolic pt reports having chest pain across lower chest, like a belt for past couple weeks, that is intermittent pt reports this episode of pain has been constant for 2 days short of breath pt has neuropathy and thought that was cause of pain pt given 2 ntg enroute, no relief of pain pt had total of 3 baby asa today History of Present Illness The patient is a 61 year old male who presents to the Emergency Room with complaints of diffuse chest pain that started 3 days ago. He describes the pain as sharp and stabbing. The patient was at his family doctor's office this morning, and while he was there, he got dizzy and short of breath when standing up and almost passed out. The patient was then sent here. He says that the chest pain occasionally moves to different spots around his body, including on his side. The patient also notes an intermittent burning sensation on the top of his feet. He says that this chest pain feels similar to the pain when he had to get catheterized 3 weeks ago. The pain is not worsened or relieved by anything. He denies any arm pain, jaw pain, back pain, nausea, or vomiting. He is not normally on oxygen. The patient had a normal stress test on the 02 of July. He failed his pharmacological nuclear stress test, and the echo showed moderate to severe aortic stenosis. His second marginal had 50% stenosis. His first posterior lateral branch of RCA is 20%. The cath 3 weeks ago showed mild aortic stenosis. Source of History: patient Onset: 3 days ago Position: chest (diffuse) Quality: sharp, stabbing Timing: other (persistent) Associated Symptoms: + SOB, No back pain, No nausea, No vomiting Note: Associated symptoms: Got dizzy when standing up this morning. Denies arm pain, jaw pain. Review of Systems See HPI for pertinent positives & negatives. A total of 10 systems reviewed and were otherwise negative. Past Medical & Surgical Medical Problems: (1) Asthma (2) CAD (coronary artery disease) (3) Chest pain (4) CKD (chronic kidney disease), stage III (5) DM type 2 (diabetes mellitus, type 2) (6) Dyslipidemia (7) Hypertension (8) LBBB (left bundle branch block) (9) Mild aortic stenosis (10) Nonischemic cardiomyopathy Surgical Problems: (1) H/O cardiac catheterization (2) S/p adrenal gland surgery Family History Diabetes mellitus SISTER BROTHER FH: CHF (congestive heart failure) MOTHER Hypertension SON Social History Smoking Status: Never Smoker Drug Use: none Marital Status: Housing Status: lives with significant other Occupation Status: employed Current/Historical Medications Scheduled Aspirin (Aspirin Ec), 81 MG PO DAILY Carvedilol (Carvedilol), 12.5 MG PO BID Cholecalciferol (Vitamin D3), 2,000 INTER.UNIT PO DAILY Enalapril Maleate (Enalapril Maleate), 1 TAB PO BID Gabapentin (Neurontin), 300 MG PO TID Hydralazine HCl (Hydralazine HCl), 1 TAB PO BID Insulin Aspart (Novolog Flexpen), 7 UNITS SQ QAM Insulin Aspart (Novolog Flexpen), 14 UNITS SQ UD Insulin Glargine (Lantus Solostar), 50 UNITS SC HS Isosorbide Dinitrate (Isordil), 20 MG PO TID@0700,1200,1700 Rosuvastatin Calcium (Crestor), 40 MG PO DAILY Terazosin (Hytrin), 10 MG PO HS Scheduled PRN Albuterol (Ventolin Hfa), 2 PUFFS INH Q4H PRN for SOB/Wheezing Hydrocodone/Acetaminophen 5MG/325MG ([place] 5MG/325MG), 1 TAB PO Q6H PRN for Pain Allergies Coded Allergies: No Known Allergies (Unverified , 07/22/16) Physical Exam Vital Signs Date Time Temp Pulse Resp B/P Pulse Ox O2 Delivery O2 Flow Rate FiO2 07/22/16 16:34 56 16 182/104 96 Room Air 07/22/16 14:37 54 16 165/95 93 Room Air 07/22/16 13:03 60 07/22/16 13:00 62 18 158/95 96 Room Air 07/22/16 12:00 60 20 148/83 92 Room Air 07/22/16 10:27 68 20 116/70 96 Nasal Cannula 2.0 07/22/16 10:26 96 Nasal Cannula 2.0 07/22/16 10:19 66 07/22/16 10:12 Nasal Cannula 2.0 07/22/16 10:10 92 Room Air 07/22/16 10:10 36.5 65 24 109/71 90 Room Air Physical Exam GENERAL: sitting up in bed, disheveled, non-toxic, no acute distress EYE EXAM: normal conjunctiva OROPHARYNX: no exudate, no erythema, lips, buccal mucosa, and tongue normal and mucous membranes are moist NECK: supple, no nuchal rigidity, no adenopathy, non-tender LUNGS: Clear to auscultation. Normal chest wall mechanics HEART: mild systolic murmur, S1 normal and S2 normal ABDOMEN: abdomen soft, non-tender, normo-active bowel sounds, no masses, no rebound or guarding. BACK: Back is symmetrical on inspection and there is no deformity, no midline tenderness, no CVA tenderness. SKIN: no rashes and no bruising UPPER EXTREMITIES: upper extremities are grossly normal. LOWER EXTREMITIES: No pitting edema. Calves equal bilaterally. NEURO EXAM: Normal sensorium, cranial nerves II-XII grossly intact, normal speech, no gross weakness of arms, no gross weakness of legs. Medical Decision & Procedures ER Provider Diagnostic Interpretation: Xray results per the radiologist and my interpretation. Other results have been interpreted by the radiologist and reviewed by me. CHEST ONE VIEW PORTABLE CLINICAL HISTORY: Atypical chest pain COMPARISON STUDY: June 19, 2016 FINDINGS: The cardiac and mediastinal contours remain stable. There is no failure. There is no focal pulmonary consolidation. No pleural effusions are visualized.[ IMPRESSION: No active disease in the chest. Electronically signed by: Indra Aguilar M.D. 07/22/2016 10:36 AM Dictated Date/Time: 07/22/2016 10:35 AM ABDOMINAL ULTRASOUND, RIGHT UPPER QUADRANT HISTORY: Right upper quadrant abdominal pain. COMPARISON: None. FINDINGS: Pancreas: Not well visualized due to overlying bowel gas. Liver: Slightly echogenic consistent with mild fatty change. Gallbladder: No gallbladder wall thickening. No gallstones. CBD: 7 mm. Right kidney: No hydronephrosis. The kidneys are echogenic consistent with medical renal disease. IMPRESSION: 1. Normal gallbladder. No gallstones. 2. The common bile duct measures 7 mm which is mildly dilated for age. 3. Mild hepatic steatosis. Electronically signed by: Tremaine Blackmon M.D. 07/22/2016 2:13 PM Dictated Date/Time: 07/22/2016 2:11 PM NUCLEAR MEDICINE VENTILATION/PERFUSION SCAN CLINICAL HISTORY: Chest pain COMPARISON: Dyspnea TECHNIQUE: For the ventilation portion of this exam, 30.0 mCi of DTPA was inhaled at 3:30. Immediately following inhalation, imaging of the chest was carried out in the anterior, posterior, left lateral, right lateral, LPO, RPO, CZECH and MALLOY projections. For the perfusion portion of exam, 5.3 mCi of technetium 99m MAA was injected IV at 350 immediately following injection, imaging of the chest was carried out in the same projections. FINDINGS: Slightly heterogeneous lung perfusion. Mild central air trapping. No evidence for a major ventilation perfusion defect. IMPRESSION: Low probability of pulmonary most. Mild central air trapping. Electronically signed by: Billy Phillips M.D. 07/22/2016 4:20 PM Dictated Date/Time: 07/22/2016 4:18 PM Laboratory Results 07/22/16 10:20 07/22/16 10:20 Test 07/22/16 10:20 07/22/16 10:24 07/22/16 14:11 Red Blood Count 4.92 M/uL (4.7-6.1) Mean Corpuscular Volume 78.5 fL (80-100) Mean Corpuscular Hemoglobin 27.4 pg (25-34) Mean Corpuscular Hemoglobin Concent 35.0 g/dl (32-36) RDW Standard Deviation 37.8 fL (36.4-46.3) RDW Coefficient of Variation 13.3 % (11.5-14.5) Mean Platelet Volume 9.4 fL (7.4-10.4) Prothrombin Time 11.0 SECONDS (9.0-12.0) Prothromb Time International Ratio 1.0 (0.9-1.1) Activated Partial Thromboplast Time 25.4 SECONDS (21.0-31.0) Partial Thromboplastin Ratio 1.0 D-Dimer 600 ug/L FEU (0-500) Anion Gap 10.0 mmol/L (3-11) Est Creatinine Clear Calc Drug Dose 47.2 ml/min Estimated GFR () 42.8 Estimated GFR (Non- 37.0 BUN/Creatinine Ratio 17.1 (10-20) Calcium Level 9.2 mg/dl (8.5-10.1) Total Bilirubin 0.8 mg/dl (0.2-1) Aspartate Amino Transf (AST/SGOT) 15 U/L (15-37) Alanine Aminotransferase (ALT/SGPT) 25 U/L (12-78) Alkaline Phosphatase 70 U/L (45-117) Total Creatine Kinase 106 U/L (39-308) Creatine Kinase MB 1.8 ng/ml (0.5-3.6) Creatine Kinase MB Ratio 1.7 (0-3.0) Troponin I 0.025 ng/ml (0-0.045) Total Protein 6.5 gm/dl (6.4-8.2) Albumin 3.2 gm/dl (3.4-5.0) Globulin 3.3 gm/dl (2.5-4.0) Albumin/Globulin Ratio 1.0 (0.9-2) Bedside Troponin I 0.030 ng/ml (0-0.045) Bedside Glucose 181 mg/dl (70-99) Laboratory results per my review. Medications Administered Medications (Trade) Dose Ordered Sig/Larry Route Start Time Stop Time Status Last Admin Dose Admin Sodium Chloride (Nss 500ml) 500 ml @ 999 mls/hr Q31M STAT IV 07/22/16 11:13 07/22/16 11:43 DC 07/22/16 11:22 999 MLS/HR Morphine Sulfate (MoRPHine SULFATE INJ) 6 mg NOW STAT IV 07/22/16 11:56 07/22/16 11:57 DC 07/22/16 12:12 6 MG Levofloxacin 500 mg 500 mg NOW ONCE IV 07/22/16 12:45 07/22/16 12:46 DC 07/22/16 13:05 500 MG Methylprednisolone Sodium Succinate/ Syringe (Solu-Medrol IV/ Syringe) 0.64 ml @ 1.5 mls/min NOW IV 07/22/16 12:45 07/22/16 17:36 DC 07/22/16 13:05 1.5 MLS/MIN Albuterol Sulfate (Ventolin 0.083% 2.5MG/3ML Neb) 2.5 mg NOW STAT INH 07/22/16 12:42 07/22/16 12:43 DC 07/22/16 13:05 2.5 MG ECG Indication: chest pain Rate (beats per minute): 65 Rhythm: normal sinus Findings: LBBB, PVC, left axis deviation Change: no significant change (compared to June 19 2016) ED Course ED COURSE: Vital signs were reviewed and showed normal vitals. The patients medical record was reviewed The above diagnostic studies were performed and reviewed. ED treatments and interventions as stated above. 1106: The patient was evaluated in room C3. A complete history and physical examination was performed. 1113: Ordered NSS 500 ml @ 999 mls/hr IV. 1156: Ordered Morphine Sulfate Inj 6 mg IV. 1242: Ordered Ventolin 0.083% 2.5MG/3ML Neb 2.5 mg INH. 1245: Ordered Methylprednisolone Sodium Succinate 40 mg/Syringe 0.64 ml @ 1.5 mls/min IV, Levaquin / D5W 500 mg IV. 1251: I discussed the patient with Dr. Juarez - [facility] fur plucker - she can do the VQ study. 1430: I reevaluated and updated the patient. 1653: Upon reevaluation, the patient is feeling fine.I discussed my findings with the patient and he understands and agrees with the treatment plan. Based on the patients age, coexisting illnesses, exam and lab findings the decision to treat as an outpatient was made. The patient remained stable while under my care. The patient appeared well at the time of discharge. Medical Decision Differential diagnoses includes but is not limited to acute coronary syndrome, myocardial infarction, pericarditis, pulmonary embolus, aortic dissection, pneumonia, pneumothorax, musculoskeletal, shingles, esophageal. Patient is a 59-year-old male who presents the ER for chest pain which starts under his right breast and radiates across to his left chest wall. This has been present for the past 3 days. No exertional symptoms. He recently had a cath which showed a 50% lesion and a 20% lesion. There was very mild aortic stenosis. Otherwise was unremarkable. He does have a history of diabetes, and hyperlipidemia. D-dimer was elevated and V/Q study was performed since his creatinine was elevated at 1.9. His baseline appears to be around 1.7. He was a little dizzy and was given fluids. His dizziness resolved. EKG stay was unremarkable. His no other symptoms to suggest a PE. Radial pulses are equal. No history of any aortic issues. He is evaluated by cardiology and they agreed with the workup and that this is likely noncardiac. Patient was discharged to follow-up with his primary care doctor for repeat creatinine and he was instructed to take his Lasix every other day until following up with his primary care doctor. Discussed with Pt concerning signs and symptoms to watch out for. Pt was instructed to follow up with their PCP and discussed with the patient their option to return to the ED at anytime for persistent or worsening symptoms. The appropriate anticipatory guidance and out-patient management, including indications for return to the emergency department, were explained at length to the patient and understood. Consults Time Called: 1240 Consulting Physician: Dr. Larry WALLIS fur plucker Returned Call: 1251 I discussed the patient with Dr. Larry WALLIS fur plucker - she can do the VQ study. Impression Primary Impression: Precordial chest pain Additional Impressions: Dehydration PAM (acute kidney injury) Scribe Attestation The scribe's documentation has been prepared under my direction and personally reviewed by me in its entirety. I confirm that the note above accurately reflects all work, treatment, procedures, and medical decision making performed by me. Departure Information Dispostion Home / Self-Care Referrals Mabel Butts M.D. (PCP) Forms IMPORTANT VISIT INFORMATION Patient Instructions Chest Pain - [facility], My [facility] Additional Instructions Please follow up with your primary care doctor with in the next 24 hours. Any worsening of your symptoms, please return to the ED immediately. This includes chest pain, shortness of breath, passing out, or any other concerning signs or symptoms from your standpoint. Please have your creatinine which is your renal function rechecked within 2 days. Please start taking your Lasix every other day until he follow up with your primary care doctor. Problem Qualifiers
[2016-10-06] MEDS ORDERED: ISOS20TA15 PO (12:29)
[2016-11-17] MEDS ORDERED: LORA-741 PO (10:19)
[2016-11-17] MEDS ORDERED: FURO-85 PO (10:19)
[2016-11-17] MEDS ORDERED: OXYC-57 PO (10:19)
[2016-11-17] MEDS ORDERED: PANT40TA PO (14:33)
[2017-03-24] MEDS ORDERED: NRV5 PO ×3 (10:25→12:10)
[2017-03-24] MEDS ORDERED: AMLO-114 PO (12:17)
== END 2016-07-22 17:00 | disposition home or self-care (01) ==
LOC: EDBD 10:01 → C.EDC 10:03
DX: R07.2 Precordial pain (principal); E86.0 Dehydration; N17.9 Acute kidney failure, unspecified; J45.909 Unspecified asthma, uncomplicated; I25.10 Atherosclerotic heart disease of native coronary artery without angina pectoris; I12.9 Hypertensive chronic kidney disease with stage 1 through stage 4 chronic kidney disease, or unspecified chronic kidney disease; N18.3 Chronic kidney disease, stage 3 (moderate); E11.22 Type 2 diabetes mellitus with diabetic chronic kidney disease; E78.5 Hyperlipidemia, unspecified; I44.7 Left bundle-branch block, unspecified; I42.9 Cardiomyopathy, unspecified; Z83.3 Family history of diabetes mellitus; Z82.49 Family history of ischemic heart disease and other diseases of the circulatory system; Z79.82 Long term (current) use of aspirin; Z79.4 Long term (current) use of insulin

== ENCOUNTER 2016-09-11 17:37 | Emergency (ER) | payer BC ==
[~2016-09-11] VITALS: Ht 172.7 cm; Wt 104.9 kg
[2016-09-11 17:50] VITALS: TEMP 36.6; Ht 172.7 cm; Wt 104.9 kg
[2016-09-11] MEDS ORDERED: SODIUM CHLORIDE 0.9% 1000ML 1,000 ML IV STA (17:58)
[2016-09-11] MEDS ORDERED: ONDANSETRON INJ 2 MG/ML 2 ML VIAL IV STA (17:58)
[2016-09-11] MEDS ORDERED: MoRPHine SULFATE 4 MG/ML 1 ML CARP\\VIAL IV PRN (18:00)
[2016-09-11] MEDS ORDERED: OPTIRAY 320 IV PRN (18:15)
[2016-09-11 18:26] LABS: BASO % 0.4 %; BASO ABS # 0.02 K/uL (0-0.2); COMPLETE YES; EOS % 2.3 %; HEMATOCRIT 38.4 % (42-52); LYMPH % 19.7 %; LYMPH ABS # 1.01 K/uL (1.2-3.4); MEAN CELL VOLUME 81.7 fL (80-100); MEAN CORPUSCULAR HEMOGLOBIN 27.7 pg (25-34); MEAN CORPUSCULAR HGB CONC 33.9 g/dl (32-36); MEAN PLATELET VOLUME 9.4 fL (7.4-10.4); NEUT % 69.6 %; PLATELET COUNT 121 K/uL (130-400); WHITE BLOOD COUNT 5.13 K/uL (4.8-10.8)
[2016-09-11 18:34] LABS: PARTIAL THROMBOPLASTIN RATIO 0.9; PROTHROMBIN TIME (PATIENT) 11.1 SECONDS (9.0-12.0)
[2016-09-11 18:41] LABS: URINE APPEARANCE CLEAR (CLEAR); URINE BILIRUBIN NEG (NEG); URINE COLOR YELLOW; URINE EPITHELIAL CELL AUTO >30 /lpf (0-5); URINE NITRITE NEG (NEG); URINE PH 5.5 (4.5-7.5); URINE SPECIFIC GRAVITY 1.024 (1.000-1.030); UROBILINOGEN NEG (NEG); ZZUR CULT IF INDIC CLEAN CATCH NO
[2016-09-11 18:46] LABS: BUN/CREATININE RATIO 18.9 (10-20); CALCIUM 9.2 mg/dl (8.5-10.1); CREATININE 1.9 mg/dl (0.60-1.40); POTASSIUM 3.9 mmol/L (3.5-5.1)
--- NOTE | 2016-09-11 18:51 | DIAGNOSTIC IMAGING REPORT ---
CHEST ONE VIEW PORTABLE CLINICAL HISTORY: ABDOMINAL PAIN/GI pain. Nausea. COMPARISON STUDY: 07/22/2016 FINDINGS: The bones soft tissues and hemidiaphragms are normal. The cardiomediastinal silhouette is normal. The lungs are clear. The pulmonary vasculature is normal. IMPRESSION: Negative chest. Electronically signed by: Billy Phillips M.D. 09/11/2016 6:49 PM Dictated Date/Time: 09/11/2016 6:49 PM
[2016-09-11 18:55] LABS: MANUAL MICROSCOPIC REQUIRED? NO; REVIEW REQ? NO
--- NOTE | 2016-09-11 20:24 | EMERGENCY ROOM VISIT NOTE ---
History Report prepared by Felipe: Ignacio Butterfield Under the Supervision of: Dr. Winston Mitchell D.O. First contact with patient: 17:53 Chief Complaint: ABDOMINAL PAIN Stated Complaint: BAD PAIN IN GUTS History of Present Illness The patient is a 61 year old male who presents to the Emergency Room with complaints of worsening abdominal pain that started several months ago. The patient says that the pain goes all the way from his lower abdomen up to his chest. He notes that he had been having diarrhea that started a month ago, but it is much better now. The pain has not gone away however. He says that the pain has started to get sharp recently. The patient was diagnosed with C. difficile a couple weeks ago. He was at his primary care physician's office prior to arrival today, and the physician said the pain is where the colon runs , so the patient should be evaluated here. The patient says the nothing makes the pain better or worse. He denies any fevers, nausea, or vomiting. The patient was seen here when the pain first started for a heart attack workup, and was admitted. He was seen here again for the pain and had a CT scan. He had his gallbladder scanned, which showed nothing abnormal. Per the patient's , the patient recently had an ultrasound and MRI. There was some concern for cysts in the patient's pancreas. He takes 1 baby aspirin daily. Source of History: patient, spouse/significant other Onset: Several months ago Position: abdomen Quality: sharp Timing: worsening Associated Symptoms: + diarrhea (has gotten better however), No fevers, No nausea, No vomiting Note: Associated symptoms: Abdominal pain radiates up into his chest. Review of Systems See HPI for pertinent positives & negatives. A total of 10 systems reviewed and were otherwise negative. Past Medical & Surgical Medical Problems: (1) Asthma (2) CAD (coronary artery disease) (3) Chest pain (4) CKD (chronic kidney disease), stage III (5) DM type 2 (diabetes mellitus, type 2) (6) Dyslipidemia (7) Hypertension (8) LBBB (left bundle branch block) (9) Mild aortic stenosis (10) Nonischemic cardiomyopathy Surgical Problems: (1) H/O cardiac catheterization (2) S/p adrenal gland surgery Family History Diabetes mellitus SISTER BROTHER FH: CHF (congestive heart failure) MOTHER Hypertension SON Social History Smoking Status: Never Smoker Drug Use: none Marital Status: Housing Status: lives with significant other Occupation Status: employed Current/Historical Medications Scheduled Aspirin (Aspirin Ec), 81 MG PO DAILY Carvedilol (Carvedilol), 12.5 MG PO BID Cholecalciferol (Vitamin D3), 2,000 INTER.UNIT PO DAILY Enalapril Maleate (Enalapril Maleate), 1 TAB PO BID Gabapentin (Neurontin), 300 MG PO TID Hydralazine HCl (Hydralazine HCl), 1 TAB PO BID Insulin Aspart (Novolog Flexpen), 7 UNITS SQ QAM Insulin Aspart (Novolog Flexpen), 14 UNITS SQ UD Insulin Glargine (Lantus Solostar), 45 UNITS SC HS Isosorbide Dinitrate (Isordil), 20 MG PO TID@0700,1200,1700 Rosuvastatin Calcium (Crestor), 40 MG PO DAILY Terazosin (Hytrin), 10 MG PO HS Scheduled PRN Albuterol (Ventolin Hfa), 2 PUFFS INH Q4H PRN for SOB/Wheezing Allergies Coded Allergies: No Known Allergies (Unverified , 09/11/16) Physical Exam Vital Signs Date Time Temp Pulse Resp B/P Pulse Ox O2 Delivery O2 Flow Rate FiO2 09/11/16 19:26 60 18 171/94 60 Room Air 09/11/16 17:50 36.6 70 18 117/75 94 Room Air Physical Exam CONSTITUTIONAL/VITAL SIGNS: Reviewed / noted above. GENERAL: Non-toxic in appearance. INTEGUMENTARY: Warm, dry, and [place]. HEAD: Normocephalic. EYES: without scleral icterus or trauma. ENT/OROPHARYNX: clear and moist. LYMPHADENOPATHY/NECK: Is supple without lymphadenopathy or meningismus. RESPIRATORY: Lungs clear and equal. CARDIOVASCULAR: Regular rate and rhythm. GI/ABDOMEN: Soft. Mild diffuse tenderness, no obvious hernias. No organomegaly or pulsatile mass. No rebound or guarding. Normal bowel sounds. EXTREMITIES: Warm and well perfused. BACK: No CVA tenderness. NEUROLOGICAL: Intact without focal deficits. PSYCHIATRIC: normal affect. MUSCULOSKELETAL: Normally developed with good muscle tone. Medical Decision & Procedures ER Provider Diagnostic Interpretation: Radiology results as stated below per my review and radiologist interpretation: CHEST ONE VIEW PORTABLE CLINICAL HISTORY: ABDOMINAL PAIN/GI pain. Nausea. COMPARISON STUDY: 07/22/2016 FINDINGS: The bones soft tissues and hemidiaphragms are normal. The cardiomediastinal silhouette is normal. The lungs are clear. The pulmonary vasculature is normal. IMPRESSION: Negative chest. Electronically signed by: Billy Phillips M.D. 09/11/2016 6:49 PM Dictated Date/Time: 09/11/2016 6:49 PM ABDOMEN AND PELVIS CT WITH ORAL CONTRAST CT DOSE: 1016.83 mGy.cm HISTORY: ABD PAIN DIFFUSE TECHNIQUE: Multiaxial CT images of the abdomen and pelvis were performed following the use of oral contrast. COMPARISON STUDY: None. FINDINGS: Minimal dependent basilar atelectasis. Mild cardiomegaly. Liver spleen and pancreas are unremarkable. Moderate cortical scarring of the kidneys bilaterally. No evidence for hydronephrosis. 3.5 cm upper pole left renal cyst. Nonobstructive bowel pattern. Normal appendix. Bladder is midline. No significant abdominal pelvic or inguinal adenopathy. IMPRESSION: 1. 3.5 cm left renal cyst. 2. Study is otherwise negative. 3. Normal appendix. Electronically signed by: Billy Phillips M.D. 09/11/2016 8:20 PM Dictated Date/Time: 09/11/2016 8:18 PM Laboratory Results 09/11/16 18:15 Red Blood Count 4.70, Mean Corpuscular Volume 81.7, Mean Corpuscular Hemoglobin 27.7, Mean Corpuscular Hemoglobin Concent 33.9, Mean Platelet Volume 9.4, Neutrophils (%) (Auto) 69.6, Lymphocytes (%) (Auto) 19.7, Monocytes (%) (Auto) 8.0, Eosinophils (%) (Auto) 2.3, Basophils (%) (Auto) 0.4, Neutrophils # (Auto) 3.57, Lymphocytes # (Auto) 1.01, Monocytes # (Auto) 0.41, Eosinophils # (Auto) 0.12, Basophils # (Auto) 0.02 09/11/16 18:15 Test 09/11/16 18:15 09/11/16 18:20 White Blood Count 5.13 K/uL (4.8-10.8) Red Blood Count 4.70 M/uL (4.7-6.1) Hemoglobin 13.0 g/dL (14.0-18.0) Hematocrit 38.4 % (42-52) Mean Corpuscular Volume 81.7 fL (80-100) Mean Corpuscular Hemoglobin 27.7 pg (25-34) Mean Corpuscular Hemoglobin Concent 33.9 g/dl (32-36) Platelet Count 121 K/uL (130-400) Mean Platelet Volume 9.4 fL (7.4-10.4) Neutrophils (%) (Auto) 69.6 % Lymphocytes (%) (Auto) 19.7 % Monocytes (%) (Auto) 8.0 % Eosinophils (%) (Auto) 2.3 % Basophils (%) (Auto) 0.4 % Neutrophils # (Auto) 3.57 K/uL (1.4-6.5) Lymphocytes # (Auto) 1.01 K/uL (1.2-3.4) Monocytes # (Auto) 0.41 K/uL (0.11-0.59) Eosinophils # (Auto) 0.12 K/uL (0-0.5) Basophils # (Auto) 0.02 K/uL (0-0.2) RDW Standard Deviation 38.4 fL (36.4-46.3) RDW Coefficient of Variation 12.8 % (11.5-14.5) Immature Granulocyte % (Auto) 0.0 % Immature Granulocyte # (Auto) 0.00 K/uL (0.00-0.02) Prothrombin Time 11.1 SECONDS (9.0-12.0) Prothromb Time International Ratio 1.0 (0.9-1.1) Activated Partial Thromboplast Time 24.2 SECONDS (21.0-31.0) Partial Thromboplastin Ratio 0.9 Anion Gap 5.0 mmol/L (3-11) Est Creatinine Clear Calc Drug Dose 47.3 ml/min Estimated GFR () 42.8 Estimated GFR (Non- 37.0 BUN/Creatinine Ratio 18.9 (10-20) Calcium Level 9.2 mg/dl (8.5-10.1) Total Bilirubin 0.4 mg/dl (0.2-1) Direct Bilirubin 0.1 mg/dl (0-0.2) Aspartate Amino Transf (AST/SGOT) 17 U/L (15-37) Alanine Aminotransferase (ALT/SGPT) 24 U/L (12-78) Alkaline Phosphatase 61 U/L (45-117) Total Protein 6.6 gm/dl (6.4-8.2) Albumin 3.2 gm/dl (3.4-5.0) Lipase 82 U/L (73-393) Urine Color YELLOW Urine Appearance CLEAR (CLEAR) Urine pH 5.5 (4.5-7.5) Urine Specific Runnells 1.024 (1.000-1.030) Urine Protein 3+ (NEG) Urine Glucose (UA) 3+ (NEG) Urine Ketones NEG (NEG) Urine Occult Blood NEG (NEG) Urine Nitrite NEG (NEG) Urine Bilirubin NEG (NEG) Urine Urobilinogen NEG (NEG) Urine Leukocyte Esterase NEG (NEG) Urine WBC (Auto) 1-5 /hpf (0-5) Urine RBC (Auto) 0-4 /hpf (0-4) Urine Hyaline Casts (Auto) 5-10 /lpf (0-5) Urine Epithelial Cells (Auto) >30 /lpf (0-5) Urine Bacteria (Auto) NEG (NEG) Laboratory results as stated above per my review. Medications Administered Medications (Trade) Dose Ordered Sig/Larry Route Start Time Stop Time Status Last Admin Dose Admin Sodium Chloride (Nss 1000ml) 1,000 ml @ 999 mls/hr Q1H1M STAT IV 09/11/16 17:58 09/11/16 18:58 DC 09/11/16 18:14 999 MLS/HR Ondansetron HCl (Zofran Inj) 4 mg NOW STAT IV 09/11/16 17:58 09/11/16 18:00 DC 09/11/16 18:14 4 MG Morphine Sulfate (MoRPHine SULFATE INJ) 4 mg Q1H PRN IV 09/11/16 18:00 09/25/16 17:59 09/11/16 18:14 4 MG ED Course 1754: Previous medical records were reviewed. The patient was evaluated in room C10. A complete history and physical examination was performed. 1758: Ordered Zofran Inj 4 mg IV, NSS 1000 ml @ 999 mls/hr IV. 1800: Ordered Morphine Sulfate Inj 4 mg IV PRN. 2026: On reevaluation, the patient is resting comfortably. I discussed the results and findings with the patient. He verbalized agreement of the treatment plan. He was discharged home. Medical Decision Differential considered: pancreatitis, hepatitis, or acute cholecystitis, AAA, UTI, pyelonephritis, kidney stones, appendicitis, diverticulitis, shingles, bowel obstruction mesenteric ischemia, intussusception,hernia, testicular torsion. Medication Reconciliation: I attest that I have personally reviewed the patient' s current medication list. Blood pressure Screening: Patient was found to have normal blood pressure on screening and does not require follow-up. This is a 61-year-old male who presents to the ED with a chief complaint of abdominal pain. The patient reports diffuse abdominal pain for the last couple of months. He has been seen here twice for the same and has had also outpatient imaging studies at [facility]. The patient is scheduled to have a colonoscopy next month. The patient has had diarrhea a month ago and was treated for C. difficile and the symptoms there have resolved but his abdominal discomfort persists. His vital signs are normal. His abdominal exam reveals mild diffuse abdominal tenderness. CBC, complete metabolic panel are unremarkable. BUN and creatinine are elevated consistent with baseline. Urine did not show infection. Lipase was negative. CT scan did not show any acute process. There is a left renal cyst. The patient was told results. He was treated with IV morphine, IV Zofran and IV fluids. He was told the results and felt to be stable for discharge. Impression Primary Impression: Diffuse abdominal pain Additional Impression: Renal cyst Scribe Attestation The scribe's documentation has been prepared under my direction and personally reviewed by me in its entirety. I confirm that the note above accurately reflects all work, treatment, procedures, and medical decision making performed by me. Departure Information Dispostion Home / Self-Care Referrals No Doctor, Assigned (PCP) Patient Instructions Abdominal Pain, My [facility] Additional Instructions Follow-up with your doctor for further care and evaluation in 1-2 days. Return to the emergency department for worsening or new symptoms or any concerns. You have been examined and treated today on an emergency basis only. This is not a substitute for, or an effort to provide, complete comprehensive medical care. It is impossible to recognize and treat all injuries or illnesses in a single emergency department visit. It is therefore important that you follow up closely with your doctor. Call as soon as possible for an appointment. Problem Qualifiers
[2016-09-11 20:38] VITALS: BP 168/91; PULSE 59; O2SAT 96
[2016-10-06] MEDS ORDERED: ISOS20TA15 PO (12:29)
[2016-11-17] MEDS ORDERED: LORA-741 PO (10:19)
[2016-11-17] MEDS ORDERED: FURO-85 PO (10:19)
[2016-11-17] MEDS ORDERED: OXYC-57 PO (10:19)
[2016-11-17] MEDS ORDERED: PANT40TA PO (14:33)
[2017-03-24] MEDS ORDERED: NRV5 PO ×3 (10:25→12:10)
[2017-03-24] MEDS ORDERED: AMLO-114 PO (12:17)
== END 2016-09-11 20:41 | disposition home or self-care (01) ==
LOC: C.EDB 17:38 → C.EDC 20:41
DX: R10.9 Unspecified abdominal pain (principal); N28.1 Cyst of kidney, acquired; J45.909 Unspecified asthma, uncomplicated; I25.10 Atherosclerotic heart disease of native coronary artery without angina pectoris; N18.3 Chronic kidney disease, stage 3 (moderate); E11.9 Type 2 diabetes mellitus without complications; I12.9 Hypertensive chronic kidney disease with stage 1 through stage 4 chronic kidney disease, or unspecified chronic kidney disease; I35.0 Nonrheumatic aortic (valve) stenosis; E78.5 Hyperlipidemia, unspecified; Z83.3 Family history of diabetes mellitus; Z82.49 Family history of ischemic heart disease and other diseases of the circulatory system; Z79.82 Long term (current) use of aspirin; Z79.4 Long term (current) use of insulin; Z79.899 Other long term (current) drug therapy

== ENCOUNTER → 2016-10-09 | Day surgery (SDC) | payer BC ==
[2016-10-06 12:30] VITALS: Ht 172.7 cm; Wt 104.5 kg
[~2016-10-09] VITALS: Ht 172.7 cm; Wt 104.5 kg
[~2016-10-09] MED LIST changes: +AMLO-114 PO; +ETOMIDATE 2 MG/ML 20 ML VIAL IV ONE; +FENTANYL CITRATE INJ 50 MCG/1 ML 2 ML VIAL ONE; +FURO-85 PO; -HYDR-5688 PO; +ISOS20TA15 PO; -ISR20 PO; +KETAMINE HCL INJ 50 MG/ML 10 ML VIAL ONE; +LIDOCAINE HCL 2% 2 ML VIAL (20MG/ML) ONE; +LORA-741 PO; +NRV5 PO; +ONDANSETRON INJ 2 MG/ML 2 ML VIAL IV PRN; +OXYC-57 PO; +PANT40TA PO; +PROPOFOL IV EMULSION 10 MG/ML 20 ML VIAL IV ONE
--- NOTE | 2016-10-09 09:55 | Endo History and Physical ---
History & Physical Date of Service: Oct 09, 2016. Chief Complaint: epigastric and abdominal pain Referring Physician: Dr. Mabel Butts History of Present Illness Patient presenting for evaluation of abdominal pain and intermitant loose stools , no dysphagia. Past Surgical History Hx Cardiac Surgery: No Hx Internal Defibrillator: No Hx Pacemaker: No Hx Abdominal Surgery: No Hx Post-Op Nausea and Vomiting: No Hx Cancer Surgery: No Hx Thoracic Surgery: No Hx Orthopedic: Yes (TRIGGER FINGERS R/L HAND) Hx Urinary Tract Surgery: No Family History None Social History Smoking Status: Never Smoker Hx Substance Use: No Hx Alcohol Use: No Allergies Coded Allergies: No Known Allergies (Verified , 10/09/16) Current Medications Reported Home Medications Medications Dose Route/Sig Max Daily Dose Days Date Category Dose Instructions Isordil (Isosorbide Dinitrate) 20 Mg Tab 20 Mg PO TID 10/06/16 Reported Hydralazine HCl 10 Mg Tab 1 Tab PO BID 07/02/16 Reported Enalapril Maleate 20 Mg Tab 1 Tab PO BID 90 06/19/16 Reported Ventolin Hfa (Albuterol) 60 Puffs/5400 Mcg Aers 2 Puffs INH Q4H PRN 06/19/16 Reported Aspirin Ec (Aspirin) 81 Mg Tab 81 Mg PO HS 06/19/16 Reported Vitamin D3 (Cholecalciferol) 2,000 Unit Tab 2,000 Inter.unit PO DAILY 90 06/19/16 Reported Lantus Solostar (Insulin Glargine) 100 Unit/Ml Inj 45 Units SC HS 06/19/16 Reported Hytrin (Terazosin HCl) 5 Mg Cap 10 Mg PO HS 06/19/16 Reported Carvedilol 25 Mg Tab 12.5 Mg PO BID 06/19/16 Reported Crestor (Rosuvastatin Calcium) 40 Mg Tab 40 Mg PO HS 06/19/16 Reported Neurontin (Gabapentin) 300 Mg Cap 300 Mg PO TID 06/19/16 Reported Novolog Flexpen (Insulin Aspart) 100 Units/Ml Inj 14 Units SQ UD 06/19/16 Reported with lunch and dinner Novolog Flexpen (Insulin Aspart) 100 Units/Ml Inj 7 Units SQ QAM 06/19/16 Reported Vital Signs Weight (Kilograms): 104.55 Height (Feet): 5 Height (Inches): 8 Date Time Temp Pulse Resp B/P (MAP) Pulse Ox O2 Delivery O2 Flow Rate FiO2 10/09/16 09:40 36.4 60 16 95/65 (75) 94 Room Air Physical Exam General Appearance: no apparent distress Respiratory/Chest: Auscultation: breath sounds normal Cardiovascular: Heart Auscultation: RRR Abdomen: Inspection & Palpation: soft Assessment and Plan EGD for evaluation of abdominal pain.
--- NOTE | 2016-10-09 10:11 | GI REPORT ---
Procedure Date: 10/09/2016 9:48 AM Procedure: Upper GI endoscopy Indications: Epigastric abdominal pain Medicines: Monitored Anesthesia Care Complications: No immediate complications. Estimated blood loss: Minimal. Estimated Blood Loss: Estimated blood loss was minimal. Procedure: Pre-Anesthesia Assessment: - Prior to the procedure, a History and Physical was performed, and patient medications, allergies and sensitivities were reviewed. The patient's tolerance of previous anesthesia was reviewed. - The risks and benefits of the procedure and the sedation options and risks were discussed with the patient. All questions were answered and informed consent was obtained. - Patient identification and proposed procedure were verified prior to the procedure by the physician, the nurse and the lithopone charger. The procedure was verified in the procedure room. - Pre-procedure physical examination revealed no contraindications to sedation. - ASA Grade Assessment: IV - A patient with severe systemic disease that is a constant threat to life. - After reviewing the risks and benefits, the patient was deemed in satisfactory condition to undergo the procedure. - The anesthesia plan was to use monitored anesthesia care (MAC). - Immediately prior to administration of medications, the patient was re-assessed for adequacy to receive sedatives. - The heart rate, respiratory rate, oxygen saturations, blood pressure, adequacy of pulmonary ventilation, and response to care were monitored throughout the procedure. - The physical status of the patient was re-assessed after the procedure. After obtaining informed consent, the endoscope was passed under direct vision. Throughout the procedure, the patient's blood pressure, pulse, and oxygen saturations were monitored continuously. The scope was introduced through the mouth, and advanced to the third part of duodenum. The upper GI endoscopy was accomplished without difficulty. The patient tolerated the procedure well. Findings: The examined esophagus was normal. The Z-line was regular and was found 38 cm from the incisors. Diffuse moderate inflammation characterized by erythema and granularity was found in the entire examined stomach. Biopsies were taken with a cold forceps for histology. Estimated blood loss was minimal. The examined duodenum was normal. Biopsies were taken with a cold forceps for histology. Estimated blood loss was minimal. Impression: - Normal esophagus. - Z-line regular, 38 cm from the incisors. - Gastritis. Biopsied. - Normal examined duodenum. Biopsied. Recommendation: - Discharge patient to home (ambulatory). - Advance diet as tolerated today. - Await pathology results. - Use Protonix (pantoprazole) 40 mg PO daily - Consider a colonoscopy for CRC screening purposes Nely Kent D.O. Nely Kent, 10/09/2016 10:11:15 AM This report has been signed electronically. Note Initiated On: 10/09/2016 9:48 AM I attest to the content of the Intraoperative Record and orders documented therein, exceptions below
--- NOTE | 2016-10-09 10:12 | Anesthesiology Progress Note ---
Anesthesia Post Op Note Date & Time Oct 09, 2016 at 10:12 Vital Signs Pain Intensity: 10 Vital Signs Past 12 Hours Date Time Temp Pulse Resp B/P (MAP) Pulse Ox O2 Delivery O2 Flow Rate FiO2 10/09/16 09:40 36.4 60 16 95/65 (75) 94 Room Air Notes Mental Status: alert / awake / arousable, participated in evaluation Pt Amnestic to Procedure: Yes Nausea / Vomiting: adequately controlled Pain: adequately controlled Airway Patency, RR, SpO2: stable & adequate BP & HR: stable & adequate Hydration State: stable & adequate Anesthetic Complications: no major complications apparent
--- NOTE | 2016-10-09 10:13 | Discharge Instructions ---
Endoscopy Patient Instructions Date / Procedure(s) Performed Oct 09, 2016. EGD Allergy Information Coded Allergies: No Known Allergies (Verified , 10/09/16) Discharge Date / Findings Oct 09, 2016. Mild gastritis Medication Instructions Stopped Medication(s): took ASA yesterday Reported Home Medications Medications Dose Route/Sig Max Daily Dose Days Date Category Dose Instructions Isordil (Isosorbide Dinitrate) 20 Mg Tab 20 Mg PO TID 10/06/16 Reported Hydralazine HCl 10 Mg Tab 1 Tab PO BID 07/02/16 Reported Enalapril Maleate 20 Mg Tab 1 Tab PO BID 90 06/19/16 Reported Ventolin Hfa (Albuterol) 60 Puffs/5400 Mcg Aers 2 Puffs INH Q4H PRN 06/19/16 Reported Aspirin Ec (Aspirin) 81 Mg Tab 81 Mg PO HS 06/19/16 Reported Vitamin D3 (Cholecalciferol) 2,000 Unit Tab 2,000 Inter.unit PO DAILY 90 06/19/16 Reported Lantus Solostar (Insulin Glargine) 100 Unit/Ml Inj 45 Units SC HS 06/19/16 Reported Hytrin (Terazosin HCl) 5 Mg Cap 10 Mg PO HS 06/19/16 Reported Carvedilol 25 Mg Tab 12.5 Mg PO BID 06/19/16 Reported Crestor (Rosuvastatin Calcium) 40 Mg Tab 40 Mg PO HS 06/19/16 Reported Neurontin (Gabapentin) 300 Mg Cap 300 Mg PO TID 06/19/16 Reported Novolog Flexpen (Insulin Aspart) 100 Units/Ml Inj 14 Units SQ UD 06/19/16 Reported with lunch and dinner Novolog Flexpen (Insulin Aspart) 100 Units/Ml Inj 7 Units SQ QAM 06/19/16 Reported Provider Instructions Activity Restrictions - No exercising or heavy lifting for 24 hours. - Do not drink alcohol the day of the procedure. - Do not drive a car or operate machinery until the day after the procedure. - Do not make any important decisions or sign important papers in 24 hours after the procedure. Following Day: - Return to full activity which may include returning to work/school. Diet Start your diet with liquids and light foods (jello, soup, juice, toast). Then eat your usual diet if not nauseated. Treatment For Common After Affects For mild abdominal pain, bloating, or excessive gas: - Rest - Eat lightly - Lie on right side Follow-Up Information Follow-up with Dr. Mabel Butts as scheduled Await pathology results Try Protonix 40 mg per day Consider a colonoscopy for CRC screening. Anesthesia Information What You Should Know You have had a procedure that required some medicine to reduce anxiety and discomfort. This treatment is called moderate sedation. After receiving the treatment, you may be sleepy, but you will be able to breathe on your own. The effects of the treatment may last for several hours. Follow these instructions along with Activity/Diet recommendations noted above: * Do NOT do anything where dizziness or clumsiness would be dangerous. * Rest quietly at home today, then you can be up and about tomorrow. * Have a responsible person stay with you the rest of today. * You may have had an I.V. today. If so, you may take the dressing off later today. Recommendations Call your doctor if: * Trouble breathing * Continuous vomiting for more than 24 hours * Temperature above 101 degrees * Severe abdominal pain or bloating * Pain not relieved by pain medicine ordered * There is increased drainage or redness from any incision * A large amount of rectal bleeding greater than 2-3 tablespoons. (If you had a polyp/s removed or have hemorrhoids, a small amount of blood - from the rectum is to be expected.) * You have any unanswered questions or concerns. IN THE EVENT OF A SERIOUS EMERGENCY, GO TO THE NEAREST EMERGENCY ROOM Your discharge instructions were prepared by provider Nely Kent. Patient Instructions Signature Page Willis Delarosa Patient (or Guardian) Signature/Date: I have read and understand the instructions given to me by my caregivers. Caregiver/RN/Doctor Signature/Date: The above-named patient and/or guardian has received patient instructions on this date. + Original Patient Signature Page (only) stays with chart. Please make copy for patient.
[2016-10-09 10:40] VITALS: BP 168/91; PULSE 55; O2SAT 96
== END | disposition home or self-care (01) ==
LOC: C.GI 09:18
PROVIDERS: ATTEND Internal Medicine Gastroenterology
DX: K29.70 Gastritis, unspecified, without bleeding (principal); I25.10 Atherosclerotic heart disease of native coronary artery without angina pectoris; I12.9 Hypertensive chronic kidney disease with stage 1 through stage 4 chronic kidney disease, or unspecified chronic kidney disease; E11.22 Type 2 diabetes mellitus with diabetic chronic kidney disease; J45.909 Unspecified asthma, uncomplicated; I25.2 Old myocardial infarction; N18.3 Chronic kidney disease, stage 3 (moderate); Z68.35 Body mass index [BMI] 35.0-35.9, adult; Z98.890 Other specified postprocedural states; Z79.4 Long term (current) use of insulin; Z79.82 Long term (current) use of aspirin

== ENCOUNTER → 2016-11-21 | Day surgery (SDC) | payer BC ==
[2016-11-17 10:22] VITALS: Ht 172.7 cm; Wt 104.5 kg
[~2016-11-21] VITALS: Ht 172.7 cm; Wt 104.5 kg
[~2016-11-21] MED LIST changes: -AMLO-114 PO; -ETOMIDATE 2 MG/ML 20 ML VIAL IV ONE; -FENTANYL CITRATE INJ 50 MCG/1 ML 2 ML VIAL ONE; -HYDR-2977 PO; -KETAMINE HCL INJ 50 MG/ML 10 ML VIAL ONE; +LACTATED RINGER'S 1000ML 1,000 ML IV ONE; -LORA-741 PO; -NRV5 PO; -TERA5CAP PO
--- NOTE | 2016-11-21 14:02 | Endo History and Physical ---
History & Physical Date of Service: Nov 21, 2016. Chief Complaint: screening Referring Physician: Dr. Mabel Butts History of Present Illness The patient is referred for colon cancer screening. He has no specific symptoms at this time. His family history is notable for a brother who had colon cancer in his early 60s. Past Surgical History Hx Cardiac Surgery: Yes (HEART CATH, NO STENTS) Hx Internal Defibrillator: No Hx Pacemaker: No Hx Abdominal Surgery: No Hx of Implantable Prosthesis: No Hx Post-Op Nausea and Vomiting: No Hx Cancer Surgery: No Hx Thoracic Surgery: No Hx Orthopedic: Yes (RT/LT HAND TRIGGER FINGERS) Hx Urinary Tract Surgery: No None Family History None Social History Smoking Status: Never Smoker Hx Substance Use: No Hx Alcohol Use: No Allergies Coded Allergies: No Known Allergies (Verified , 11/17/16) Current Medications Reported Home Medications Medications Dose Route/Sig Max Daily Dose Days Date Category Dose Instructions Protonix (Pantoprazole Sodium) 40 Mg Tab 40 Mg PO QAM 11/17/16 Reported Percocet 5MG/325MG (Oxycodone/Acetaminophen) Tab 1-2 Tablets PO Q6H PRN 11/17/16 Reported PAIN Lasix (Furosemide) 20 Mg Tab 20 Mg PO 2XWK 11/17/16 Reported TUES, FRI Isordil (Isosorbide Dinitrate) 20 Mg Tab 20 Mg PO TID 10/06/16 Reported Enalapril Maleate 20 Mg Tab 1 Tab PO NOON 06/19/16 Reported Ventolin Hfa (Albuterol) 60 Puffs/5400 Mcg Aers 2 Puffs INH Q4H PRN 06/19/16 Reported Aspirin Ec (Aspirin) 81 Mg Tab 81 Mg PO QAM 06/19/16 Reported Vitamin D3 (Cholecalciferol) 2,000 Unit Tab 2,000 Inter.unit PO QAM 06/19/16 Reported Lantus Solostar (Insulin Glargine) 100 Unit/Ml Inj 45 Units SC HS 06/19/16 Reported Carvedilol 25 Mg Tab 12.5 Mg PO BID 06/19/16 Reported Crestor (Rosuvastatin Calcium) 40 Mg Tab 40 Mg PO HS 06/19/16 Reported Neurontin (Gabapentin) 300 Mg Cap 300 Mg PO QID 06/19/16 Reported Novolog Flexpen (Insulin Aspart) 100 Units/Ml Inj 14 Units SQ UD 06/19/16 Reported with lunch and dinner Novolog Flexpen (Insulin Aspart) 100 Units/Ml Inj 7 Units SQ QAM 06/19/16 Reported Vital Signs Weight (Kilograms): 104.55 Height (Feet): 5 Height (Inches): 8 Date Time Temp Pulse Resp B/P (MAP) Pulse Ox O2 Delivery O2 Flow Rate FiO2 11/21/16 13:19 36.6 64 20 158/96 (116) 98 Room Air Physical Exam General Appearance: no apparent distress Respiratory/Chest: Auscultation: breath sounds normal Cardiovascular: Heart Auscultation: RRR Abdomen: Inspection & Palpation: soft Assessment and Plan Patient referred for colonoscopy or colon polyps. We discussed the risks of the procedure include bleeding, infection, perforation, aspiration and missed colonic polyps.
--- NOTE | 2016-11-21 14:49 | GI REPORT ---
Procedure Date: 11/21/2016 2:28 PM Procedure: Colonoscopy Indications: Screening in patient at increased risk: Family history of 1st-degree relative with colorectal cancer Medicines: Monitored Anesthesia Care Complications: No immediate complications. Estimated blood loss: Minimal. Estimated Blood Loss: Estimated blood loss was minimal. Procedure: Pre-Anesthesia Assessment: - Prior to the procedure, a History and Physical was performed, and patient medications, allergies and sensitivities were reviewed. The patient's tolerance of previous anesthesia was reviewed. - The risks and benefits of the procedure and the sedation options and risks were discussed with the patient. All questions were answered and informed consent was obtained. - Patient identification and proposed procedure were verified prior to the procedure by the physician, the nurse and the graphics production specialist. The procedure was verified in the procedure room. - Pre-procedure physical examination revealed no contraindications to sedation. - ASA Grade Assessment: III - A patient with severe systemic disease. - After reviewing the risks and benefits, the patient was deemed in satisfactory condition to undergo the procedure. - The anesthesia plan was to use monitored anesthesia care (MAC). - Immediately prior to administration of medications, the patient was re-assessed for adequacy to receive sedatives. - The heart rate, respiratory rate, oxygen saturations, blood pressure, adequacy of pulmonary ventilation, and response to care were monitored throughout the procedure. - The physical status of the patient was re-assessed after the procedure. After I obtained informed consent, the scope was passed under direct vision. Throughout the procedure, the patient's blood pressure, pulse, and oxygen saturations were monitored continuously. The scope was introduced through the anus and advanced to the terminal ileum. The colonoscopy was performed without difficulty. The patient tolerated the procedure well. The quality of the bowel preparation was good. Findings: The perianal and digital rectal examinations were normal. Pertinent negatives include normal sphincter tone. The terminal ileum appeared normal. A 7 mm polyp was found in the transverse colon. The polyp was semi-sessile ad yellow appearing. The polyp was removed with a hot snare. Resection and retrieval were complete. Estimated blood loss was minimal. Internal hemorrhoids were found during retroflexion. The hemorrhoids were mild. The exam was otherwise without abnormality. Impression: - The examined portion of the ileum was normal. - One 7 mm polyp in the transverse colon, removed with a hot snare. Resected and retrieved. - Internal hemorrhoids. - The examination was otherwise normal. Recommendation: - Discharge patient to home (ambulatory). - Advance diet as tolerated today. - Await pathology results. - Repeat colonoscopy in 3 - 5 years for surveillance based on pathology results. - Return to GI office PRN. Nely Kent D.O. Nely Kent, 11/21/2016 2:49:02 PM This report has been signed electronically. Note Initiated On: 11/21/2016 2:28 PM I attest to the content of the Intraoperative Record and orders documented therein, exceptions below
--- NOTE | 2016-11-21 14:50 | Discharge Instructions ---
Endoscopy Patient Instructions Date / Procedure(s) Performed Nov 21, 2016. Colonoscopy Allergy Information Coded Allergies: No Known Allergies (Verified , 11/17/16) Discharge Date / Findings Nov 21, 2016. 1 colon polyp Internal hemorrhoids Medication Instructions Stopped Medication(s): took ASA this am Reported Home Medications Medications Dose Route/Sig Max Daily Dose Days Date Category Dose Instructions Protonix (Pantoprazole Sodium) 40 Mg Tab 40 Mg PO QAM 11/17/16 Reported Percocet 5MG/325MG (Oxycodone/Acetaminophen) Tab 1-2 Tablets PO Q6H PRN 11/17/16 Reported PAIN Lasix (Furosemide) 20 Mg Tab 20 Mg PO 2XWK 11/17/16 Reported TUES, FRI Isordil (Isosorbide Dinitrate) 20 Mg Tab 20 Mg PO TID 10/06/16 Reported Enalapril Maleate 20 Mg Tab 1 Tab PO NOON 06/19/16 Reported Ventolin Hfa (Albuterol) 60 Puffs/5400 Mcg Aers 2 Puffs INH Q4H PRN 06/19/16 Reported Aspirin Ec (Aspirin) 81 Mg Tab 81 Mg PO QAM 06/19/16 Reported Vitamin D3 (Cholecalciferol) 2,000 Unit Tab 2,000 Inter.unit PO QAM 06/19/16 Reported Lantus Solostar (Insulin Glargine) 100 Unit/Ml Inj 45 Units SC HS 06/19/16 Reported Carvedilol 25 Mg Tab 12.5 Mg PO BID 06/19/16 Reported Crestor (Rosuvastatin Calcium) 40 Mg Tab 40 Mg PO HS 06/19/16 Reported Neurontin (Gabapentin) 300 Mg Cap 300 Mg PO QID 06/19/16 Reported Novolog Flexpen (Insulin Aspart) 100 Units/Ml Inj 14 Units SQ UD 06/19/16 Reported with lunch and dinner Novolog Flexpen (Insulin Aspart) 100 Units/Ml Inj 7 Units SQ QAM 06/19/16 Reported Provider Instructions Activity Restrictions - No exercising or heavy lifting for 24 hours. - Do not drink alcohol the day of the procedure. - Do not drive a car or operate machinery until the day after the procedure. - Do not make any important decisions or sign important papers in 24 hours after the procedure. Following Day: - Return to full activity which may include returning to work/school. Diet Start your diet with liquids and light foods (jello, soup, juice, toast). Then eat your usual diet if not nauseated. Treatment For Common After Affects For mild abdominal pain, bloating, or excessive gas: - Rest - Eat lightly - Lie on right side Follow-Up Information Follow-up with Dr. Mabel Butts as scheduled Await pathology results Repeat colonoscopy in 3-5 years Anesthesia Information What You Should Know You have had a procedure that required some medicine to reduce anxiety and discomfort. This treatment is called moderate sedation. After receiving the treatment, you may be sleepy, but you will be able to breathe on your own. The effects of the treatment may last for several hours. Follow these instructions along with Activity/Diet recommendations noted above: * Do NOT do anything where dizziness or clumsiness would be dangerous. * Rest quietly at home today, then you can be up and about tomorrow. * Have a responsible person stay with you the rest of today. * You may have had an I.V. today. If so, you may take the dressing off later today. Recommendations Call your doctor if: * Trouble breathing * Continuous vomiting for more than 24 hours * Temperature above 101 degrees * Severe abdominal pain or bloating * Pain not relieved by pain medicine ordered * There is increased drainage or redness from any incision * A large amount of rectal bleeding greater than 2-3 tablespoons. (If you had a polyp/s removed or have hemorrhoids, a small amount of blood - from the rectum is to be expected.) * You have any unanswered questions or concerns. IN THE EVENT OF A SERIOUS EMERGENCY, GO TO THE NEAREST EMERGENCY ROOM Your discharge instructions were prepared by provider Nely Kent. Patient Instructions Signature Page Willis Delarosa Patient (or Guardian) Signature/Date: I have read and understand the instructions given to me by my caregivers. Caregiver/RN/Doctor Signature/Date: The above-named patient and/or guardian has received patient instructions on this date. + Original Patient Signature Page (only) stays with chart. Please make copy for patient.
--- NOTE | 2016-11-21 15:17 | Anesthesiology Progress Note ---
Anesthesia Post Op Note Date & Time Nov 21, 2016 at 15:17 Vital Signs Pain Intensity: 0 Vital Signs Past 12 Hours Date Time Temp Pulse Resp B/P (MAP) Pulse Ox O2 Delivery O2 Flow Rate FiO2 11/21/16 15:09 58 20 156/85 (108) 94 Room Air 11/21/16 14:55 54 20 113/65 (81) 98 Room Air 11/21/16 13:19 36.6 64 20 158/96 (116) 98 Room Air Notes Mental Status: alert / awake / arousable, participated in evaluation Pt Amnestic to Procedure: Yes Nausea / Vomiting: adequately controlled Pain: adequately controlled Airway Patency, RR, SpO2: stable & adequate BP & HR: stable & adequate Hydration State: stable & adequate Anesthetic Complications: no major complications apparent
[2016-11-21 15:38] VITALS: BP 172/93; PULSE 56; O2SAT 96
== END | disposition home or self-care (01) ==
LOC: C.GI 09:14
PROVIDERS: ATTEND Internal Medicine Gastroenterology
DX: Z12.11 Encounter for screening for malignant neoplasm of colon (principal); Z83.71 Family history of colonic polyps; Z79.82 Long term (current) use of aspirin; J45.909 Unspecified asthma, uncomplicated; I25.2 Old myocardial infarction; I25.10 Atherosclerotic heart disease of native coronary artery without angina pectoris; I50.9 Heart failure, unspecified; E78.5 Hyperlipidemia, unspecified; K21.9 Gastro-esophageal reflux disease without esophagitis; E11.9 Type 2 diabetes mellitus without complications; Z79.4 Long term (current) use of insulin; N18.3 Chronic kidney disease, stage 3 (moderate); I12.9 Hypertensive chronic kidney disease with stage 1 through stage 4 chronic kidney disease, or unspecified chronic kidney disease; E89.89 Other postprocedural endocrine and metabolic complications and disorders; D12.3 Benign neoplasm of transverse colon; K64.8 Other hemorrhoids

== ENCOUNTER 2017-03-21 04:27 | Inpatient (IN) | payer BC ==
[~2017-03-21] VITALS: Ht 172.7 cm; Wt 106.8 kg
[~2017-03-21 04:27] MED LIST changes: -LACTATED RINGER'S 1000ML 1,000 ML IV ONE; -LIDOCAINE HCL 2% 2 ML VIAL (20MG/ML) ONE; -ONDANSETRON INJ 2 MG/ML 2 ML VIAL IV PRN; -PROPOFOL IV EMULSION 10 MG/ML 20 ML VIAL IV ONE
[2017-03-21 05:02] LABS: BASO % 0.3 %; BASO ABS # 0.02 K/uL (0-0.2); COMPLETE YES; EOS % 1.8 %; HEMATOCRIT 36.9 % (42-52); IG% 0.1 %; LYMPH ABS # 1.15 K/uL (1.2-3.4); MEAN CELL VOLUME 83.3 fL (80-100); MEAN CORPUSCULAR HEMOGLOBIN 28.2 pg (25-34); MEAN CORPUSCULAR HGB CONC 33.9 g/dl (32-36); MEAN PLATELET VOLUME 9.6 fL (7.4-10.4); MONO % 7.1 %; NEUT % 74.7 %; PLATELET COUNT 120 K/uL (130-400); RED BLOOD COUNT 4.43 M/uL (4.7-6.1); WHITE BLOOD COUNT 7.21 K/uL (4.8-10.8)
--- NOTE | 2017-03-21 05:13 | EMERGENCY ROOM VISIT NOTE ---
History First contact with patient: 04:33 Chief Complaint: RESPIRATORY PROBLEMS Stated Complaint: DIFFICULTY BREATHING Nursing Triage Summary: Pt arrived via [facility] from home. Pt reports he awoke in the middle of night with SOB. States "I couldn't catch my breath". pulse ox 89% on room air. SOB increases with movement. Pt also C/O of pain in left rib and chest area when he takes a deep breath. Pain 7/10 with deep inspiration and 2/10 when breathing normally. Pt states he had multiple falls while hunting yesterday and believes he injured himself during one of his many falls. Reports "worsening balance lately". History of Present Illness The patient is a 62 year old male who presents to the Emergency Room with complaints of acute shortness of breath. He woke up 2 hours ago feeling suddenly short of breath. He was lying flat and reports he had to quickly sit up , gasping for air. He states he felt 100% before going to bed tonight. This has happened to him before and he states that it usually responds to his inhaler. He is usually able to lie flat with one pillow. He took 3 puffs of his inhaler without benefit. His also gave him 2 baby aspirin (162 aspirin) and one of his water pills before leaving for the hospital. He has been unable to lay flat (since waking up) without feeling acutely short of breath. He does report dizziness upon standing from sitting position. He denies any current chest pain. He reports no PMH of COPD or CHF but does report asthma and having a heart murmur for which he sees a medical laboratory specialist. Never smoker. Of note, patient has a recent history of falls in the last year especially. He reports that over the last 2 days while hunting, he fell twice yesterday and twice today. He does recall falling and never had LOC. During a fall yesterday, he states he fell onto his rifle which "broke his fall" and is c/o right hip pain and left ribcage and L-sided pleuritic pain because of this. He also reports diabetic neuropathy which affects his chest wall and feet. He declines any recent alcohol use. Review of Systems See HPI for pertinent positives and negatives. A total of ten systems were reviewed and were otherwise negative. Past Medical/Surgical History Medical Problems: (1) Asthma (2) CAD (coronary artery disease) (3) Chest pain (4) CKD (chronic kidney disease), stage III (5) DM type 2 (diabetes mellitus, type 2) (6) Dyslipidemia (7) Hypertension (8) LBBB (left bundle branch block) (9) Mild aortic stenosis (10) Nonischemic cardiomyopathy Surgical Problems: (1) H/O cardiac catheterization (2) S/p adrenal gland surgery Family History Diabetes mellitus SISTER BROTHER FH: CHF (congestive heart failure) MOTHER Hypertension SON Social History Smoking Status: Never Smoker Drug Use: none Marital Status: Housing Status: lives with significant other Occupation Status: employed Current/Historical Medications Scheduled Aspirin (Aspirin Ec), 81 MG PO QAM Carvedilol (Carvedilol), 12.5 MG PO BID Cholecalciferol (Vitamin D3), 2,000 INTER.UNIT PO QAM Enalapril Maleate (Enalapril Maleate), 1 TAB PO NOON Furosemide (Lasix), 20 MG PO 2XWK Gabapentin (Neurontin), 300 MG PO QID Insulin Aspart (Novolog Flexpen), 7 UNITS SQ QAM Insulin Aspart (Novolog Flexpen), 14 UNITS SQ UD Insulin Glargine (Lantus Solostar), 45 UNITS SC HS Isosorbide Dinitrate (Isordil), 20 MG PO TID Pantoprazole (Protonix), 40 MG PO QAM Rosuvastatin Calcium (Crestor), 40 MG PO HS Scheduled PRN Albuterol (Ventolin Hfa), 2 PUFFS INH Q4H PRN for SOB/Wheezing Oxycodone/Acetaminophen 5MG/325MG (Percocet 5MG/325MG), 1-2 TABLETS PO Q6H PRN for Pain Physical Exam Vital Signs Date Time Temp Pulse Resp B/P (MAP) Pulse Ox O2 Delivery O2 Flow Rate FiO2 03/21/17 04:36 74 03/21/17 04:29 98 Nasal Cannula 2.0 03/21/17 04:29 70 21 98 Nasal Cannula 2.0 03/21/17 04:27 89 Room Air 03/21/17 04:27 89 Room Air 03/21/17 04:27 36.8 72 20 181/100 89 Room Air Physical Exam GENERAL: Awake, alert, well-appearing, in no distress; sats 98% on 2.5L NC HENT: Normocephalic, atraumatic. Oropharynx unremarkable. EYES: Normal conjunctiva. Sclera non-icteric. NECK: Supple. No nuchal rigidity. FROM. No JVD. RESPIRATORY: Crackles, lower lobes bilaterally CARDIAC: Regular rate, normal rhythm. KACIE noted. Extremities warm and well perfused. Pulses equal. ABDOMEN: Soft, distended. No tenderness to palpation. No rebound or guarding. No masses. RECTAL: Deferred. MUSCULOSKELETAL: Chest examination reveals no tenderness. The back is symmetrical on inspection without obvious abnormality. There is no CVA tenderness to palpation. No joint edema. Multiple scrapes and knicks. LOWER EXTREMITIES: Calves are equal size bilaterally and non-tender. 1-2+ peripheral edema. No discoloration. NEURO: Normal sensorium. No sensory or motor deficits noted. SKIN: No rash or jaundice noted. Medical Decision & Procedures Laboratory Results 03/21/17 04:40 Red Blood Count 4.43, Mean Corpuscular Volume 83.3, Mean Corpuscular Hemoglobin 28.2, Mean Corpuscular Hemoglobin Concent 33.9, Mean Platelet Volume 9.6, Neutrophils (%) (Auto) 74.7, Lymphocytes (%) (Auto) 16.0, Monocytes (%) (Auto) 7.1, Eosinophils (%) (Auto) 1.8, Basophils (%) (Auto) 0.3, Neutrophils # (Auto) 5.39, Lymphocytes # (Auto) 1.15, Monocytes # (Auto) 0.51, Eosinophils # (Auto) 0.13, Basophils # (Auto) 0.02 03/21/17 04:40 Test 03/21/17 04:40 03/21/17 04:50 03/21/17 05:14 White Blood Count 7.21 K/uL (4.8-10.8) Red Blood Count 4.43 M/uL (4.7-6.1) Hemoglobin 12.5 g/dL (14.0-18.0) Hematocrit 36.9 % (42-52) Mean Corpuscular Volume 83.3 fL (80-100) Mean Corpuscular Hemoglobin 28.2 pg (25-34) Mean Corpuscular Hemoglobin Concent 33.9 g/dl (32-36) Platelet Count 120 K/uL (130-400) Mean Platelet Volume 9.6 fL (7.4-10.4) Neutrophils (%) (Auto) 74.7 % Lymphocytes (%) (Auto) 16.0 % Monocytes (%) (Auto) 7.1 % Eosinophils (%) (Auto) 1.8 % Basophils (%) (Auto) 0.3 % Neutrophils # (Auto) 5.39 K/uL (1.4-6.5) Lymphocytes # (Auto) 1.15 K/uL (1.2-3.4) Monocytes # (Auto) 0.51 K/uL (0.11-0.59) Eosinophils # (Auto) 0.13 K/uL (0-0.5) Basophils # (Auto) 0.02 K/uL (0-0.2) RDW Standard Deviation 38.1 fL (36.4-46.3) RDW Coefficient of Variation 12.7 % (11.5-14.5) Immature Granulocyte % (Auto) 0.1 % Immature Granulocyte # (Auto) 0.01 K/uL (0.00-0.02) Anion Gap 5.0 mmol/L (3-11) Est Creatinine Clear Calc Drug Dose 51.7 ml/min Estimated GFR () 46.7 Estimated GFR (Non- 40.3 BUN/Creatinine Ratio 18.4 (10-20) Calcium Level 8.5 mg/dl (8.5-10.1) Total Bilirubin 0.6 mg/dl (0.2-1) Aspartate Amino Transf (AST/SGOT) 19 U/L (15-37) Alanine Aminotransferase (ALT/SGPT) 24 U/L (12-78) Alkaline Phosphatase 80 U/L (45-117) Pro-B-Type Natriuretic Peptide 4806 pg/ml (0-900) Total Protein 6.3 gm/dl (6.4-8.2) Albumin 3.0 gm/dl (3.4-5.0) Globulin 3.3 gm/dl (2.5-4.0) Albumin/Globulin Ratio 0.9 (0.9-2) Bedside Troponin I 0.060 ng/ml (0-0.045) ED Course 0440: full h&p obtained from patient. 0450: Discussed case with Dr. Hatfield, ordered CXR, trop, BNP, CBC, BMP, 0515: ordered 40 mg lasix 0545: discussed case with Dr. Vazquez, who will evaluate the patient for further management. Medical Decision Prior records/ancillary studies reviewed. Triage Nursing notes reviewed. Additional history obtained from the family. The patient's history was concerning for respiratory difficulties. Differential diagnosis: Etiologies such as infections, reactive airway disease, pneumonia, pneumothorax , COPD, CHF, cardiac ischemia, pulmonary embolism, musculoskeletal, gastrointestinal, as well as others were entertained. Physical examination: As above. ER treatment provided: 40 mg lasix Diagnostic interpretation by me: The electrocardiogram was negative for acute ischemic or pathologic change. The labs revealed POC trop of 0.060, normal WCC, BNP 4800, Cr 1.76 BUN 32 Imaging studies: Chest x-ray with increased vascular markings but no focal consolidations or pleural effusion. Consultation: A consultation [place] [facility] The case was discussed and diagnostics were reviewed. The patient was evaluated in the ER for further treatment. Impression Primary Impression: Dyspnea Departure Information Dispostion Admitted as an inpatient Condition FAIR Referrals Mabel Butts M.D. (PCP) Patient Instructions [facility] Resident Tracking Resident Involvement: Resident Care Provided Care Provided: Adult ED Problem Qualifiers Primary Impression: Dyspnea Dyspnea type: orthopnea Qualified Codes: R06.01 - Orthopnea
[2017-03-21 05:25] LABS: BUN/CREATININE RATIO 18.4 (10-20); CALCIUM 8.5 mg/dl (8.5-10.1); CREATININE 1.76 mg/dl (0.60-1.40); POTASSIUM 3.9 mmol/L (3.5-5.1)
[2017-03-21 05:29] LABS: ALB/GLOB RATIO 0.9 (0.9-2)
[2017-03-21] MEDS ORDERED: FUROSEMIDE 40 MG TAB PO ONE (05:30)
[2017-03-21 06:16] LABS: URINE APPEARANCE CLEAR (CLEAR); URINE BILIRUBIN NEG (NEG); URINE COLOR YELLOW; URINE NITRITE NEG (NEG); URINE SPECIFIC GRAVITY 1.012 (1.000-1.030); UROBILINOGEN NEG (NEG)
[2017-03-21 06:17] LABS: MANUAL MICROSCOPIC REQUIRED? NO; REVIEW REQ? NO
[2017-03-21 06:27] LABS: ARTERIAL BLD GAS O2 SATURATION 96.1 % (90-95); ARTERIAL BLOOD GAS BASE EXCESS 2.9 mEq/L (-9-1.8); ARTERIAL BLOOD GAS HCO3 28 mmol/L (19-24); ARTERIAL BLOOD GAS PO2 83 mm/Hg (80-95); ARTERIAL BLOOD GAS pH 7.41 (7.35-7.45)
[2017-03-21 06:28] LABS: ALLEN TEST POS (POS); O2 ADMINISTRATION 2 L
[2017-03-21 06:30] LABS: MAGNESIUM 1.9 mg/dl (1.8-2.4)
--- NOTE | 2017-03-21 06:40 | DIAGNOSTIC IMAGING REPORT ---
CHEST ONE VIEW PORTABLE HISTORY: 62 years-old Male sob acute shortness of breath with difficulty breathing COMPARISON: Chest radiograph 09/11/2014 TECHNIQUE: Upright AP view of the chest FINDINGS: Cardiac silhouette is mildly enlarged. Pulmonary vascular congestion without overt pulmonary edema. There is no pneumothorax or pleural effusion. There are patchy bibasilar opacities seen within subsegmental distributions. Bones of the chest are grossly intact. There are degenerative changes of the spine and shoulders. Atherosclerosis of the aorta. IMPRESSION: Subtle patchy bibasilar opacities suggest atelectasis or pneumonitis. The above report was generated using voice recognition software. It may contain grammatical, syntax or spelling errors. Electronically signed by: Barry Go M.D. 03/21/2017 6:39 AM Dictated Date/Time: 03/21/2017 6:37 AM
--- NOTE | 2017-03-21 06:43 | EMERGENCY ROOM VISIT NOTE ---
ED Visit Note First contact with patient: 04:33 Patient examined by me independently. I agree with the resident's evaluation of the patient. Patient has an elevated BNP and chest x-ray suggestive of mild CHF and a slightly abnormal troponin. Patient has taken aspirin prior arrival was given Lasix in the emergency department this case was discussed by me with the hospitalist from [facility] for admission Problem List Medical Problems: (1) Asthma Status: Chronic (2) CAD (coronary artery disease) Permanent Comment: nonobstructive Status: Chronic (3) CKD (chronic kidney disease), stage III Status: Chronic (4) DM type 2 (diabetes mellitus, type 2) Status: Chronic (5) Dyslipidemia Status: Chronic (6) Hypertension Status: Chronic (7) LBBB (left bundle branch block) Status: Chronic (8) Mild aortic stenosis Status: Chronic (9) Nonischemic cardiomyopathy Permanent Comment: EF 45-49% on echo 08/2014 Status: Chronic Surgical Problems: (1) H/O cardiac catheterization Permanent Comment: 03/29/2012- mild nonobstructive CAD Status: Chronic (2) S/p adrenal gland surgery Status: Chronic Current/Historical Medications Scheduled Aspirin (Aspirin Ec), 81 MG PO QAM Carvedilol (Carvedilol), 12.5 MG PO BID Cholecalciferol (Vitamin D3), 2,000 INTER.UNIT PO QAM Enalapril Maleate (Enalapril Maleate), 1 TAB PO NOON Furosemide (Lasix), 20 MG PO 2XWK Gabapentin (Neurontin), 300 MG PO QID Insulin Aspart (Novolog Flexpen), 7 UNITS SQ QAM Insulin Aspart (Novolog Flexpen), 14 UNITS SQ UD Insulin Glargine (Lantus Solostar), 45 UNITS SC HS Isosorbide Dinitrate (Isordil), 20 MG PO TID Pantoprazole (Protonix), 40 MG PO QAM Rosuvastatin Calcium (Crestor), 40 MG PO HS Scheduled PRN Albuterol (Ventolin Hfa), 2 PUFFS INH Q4H PRN for SOB/Wheezing Allergies Coded Allergies: No Known Allergies (Verified , 03/21/17) Vital Signs Date Time Temp Pulse Resp B/P (MAP) Pulse Ox O2 Delivery O2 Flow Rate FiO2 03/21/17 06:35 65 19 96 Nasal Cannula 2.0 03/21/17 06:29 155/82 03/21/17 06:05 66 19 97 Nasal Cannula 2.0 03/21/17 06:00 170/99 03/21/17 05:57 66 20 97 Nasal Cannula 2.0 03/21/17 05:46 166/108 03/21/17 05:32 68 22 150/87 97 Nasal Cannula 2.0 03/21/17 05:27 68 16 150/87 98 Nasal Cannula 2.0 03/21/17 05:00 196/112 03/21/17 04:57 69 21 98 Nasal Cannula 2.0 03/21/17 04:56 171/107 03/21/17 04:36 74 03/21/17 04:31 181/100 03/21/17 04:29 98 Nasal Cannula 2.0 03/21/17 04:29 70 21 98 Nasal Cannula 2.0 03/21/17 04:27 89 Room Air 03/21/17 04:27 89 Room Air 03/21/17 04:27 36.8 72 20 181/100 89 Room Air Laboratory Results 03/21/17 04:40 Red Blood Count 4.43, Mean Corpuscular Volume 83.3, Mean Corpuscular Hemoglobin 28.2, Mean Corpuscular Hemoglobin Concent 33.9, Mean Platelet Volume 9.6, Neutrophils (%) (Auto) 74.7, Lymphocytes (%) (Auto) 16.0, Monocytes (%) (Auto) 7.1, Eosinophils (%) (Auto) 1.8, Basophils (%) (Auto) 0.3, Neutrophils # (Auto) 5.39, Lymphocytes # (Auto) 1.15, Monocytes # (Auto) 0.51, Eosinophils # (Auto) 0.13, Basophils # (Auto) 0.02 03/21/17 04:40 Test 03/21/17 04:40 03/21/17 04:50 03/21/17 05:45 03/21/17 06:18 White Blood Count 7.21 K/uL (4.8-10.8) Red Blood Count 4.43 M/uL (4.7-6.1) Hemoglobin 12.5 g/dL (14.0-18.0) Hematocrit 36.9 % (42-52) Mean Corpuscular Volume 83.3 fL (80-100) Mean Corpuscular Hemoglobin 28.2 pg (25-34) Mean Corpuscular Hemoglobin Concent 33.9 g/dl (32-36) Platelet Count 120 K/uL (130-400) Mean Platelet Volume 9.6 fL (7.4-10.4) Neutrophils (%) (Auto) 74.7 % Lymphocytes (%) (Auto) 16.0 % Monocytes (%) (Auto) 7.1 % Eosinophils (%) (Auto) 1.8 % Basophils (%) (Auto) 0.3 % Neutrophils # (Auto) 5.39 K/uL (1.4-6.5) Lymphocytes # (Auto) 1.15 K/uL (1.2-3.4) Monocytes # (Auto) 0.51 K/uL (0.11-0.59) Eosinophils # (Auto) 0.13 K/uL (0-0.5) Basophils # (Auto) 0.02 K/uL (0-0.2) RDW Standard Deviation 38.1 fL (36.4-46.3) RDW Coefficient of Variation 12.7 % (11.5-14.5) Immature Granulocyte % (Auto) 0.1 % Immature Granulocyte # (Auto) 0.01 K/uL (0.00-0.02) Anion Gap 5.0 mmol/L (3-11) Est Creatinine Clear Calc Drug Dose 51.7 ml/min Estimated GFR () 46.7 Estimated GFR (Non- 40.3 BUN/Creatinine Ratio 18.4 (10-20) Calcium Level 8.5 mg/dl (8.5-10.1) Magnesium Level 1.9 mg/dl (1.8-2.4) Total Bilirubin 0.6 mg/dl (0.2-1) Aspartate Amino Transf (AST/SGOT) 19 U/L (15-37) Alanine Aminotransferase (ALT/SGPT) 24 U/L (12-78) Alkaline Phosphatase 80 U/L (45-117) Pro-B-Type Natriuretic Peptide 4806 pg/ml (0-900) Total Protein 6.3 gm/dl (6.4-8.2) Albumin 3.0 gm/dl (3.4-5.0) Globulin 3.3 gm/dl (2.5-4.0) Albumin/Globulin Ratio 0.9 (0.9-2) Bedside Troponin I 0.060 ng/ml (0-0.045) Urine Color YELLOW Urine Appearance CLEAR (CLEAR) Urine pH 6.0 (4.5-7.5) Urine Specific Bertram 1.012 (1.000-1.030) Urine Protein 2+ (NEG) Urine Glucose (UA) 1+ (NEG) Urine Ketones NEG (NEG) Urine Occult Blood TRACE (NEG) Urine Nitrite NEG (NEG) Urine Bilirubin NEG (NEG) Urine Urobilinogen NEG (NEG) Urine Leukocyte Esterase NEG (NEG) Urine WBC (Auto) 0 /hpf (0-5) Urine RBC (Auto) 0-4 /hpf (0-4) Urine Hyaline Casts (Auto) 1-5 /lpf (0-5) Urine Epithelial Cells (Auto) 5-10 /lpf (0-5) Urine Bacteria (Auto) NEG (NEG) Arterial Blood pH 7.41 (7.35-7.45) Arterial Blood Partial Pressure CO2 45 mmHg (35-46) Arterial Blood Partial Pressure O2 83 mm/Hg (80-95) Arterial Blood HCO3 28 mmol/L (19-24) Arterial Blood Oxygen Saturation 96.1 % (90-95) Arterial Blood Base Excess 2.9 mEq/L (-9-1.8) Arterial Blood Gas Delivery 2 L Tony Test POS (POS) Medications Administered Medications (Trade) Dose Ordered Sig/Larry Route Start Time Stop Time Status Last Admin Dose Admin Furosemide (Lasix Tab) 40 mg NOW ONCE PO 03/21/17 05:30 03/21/17 05:31 DC 03/21/17 05:27 40 MG Departure Information Impression Primary Impression: Dyspnea Dispostion Admitted as an inpatient Condition FAIR Referrals Mabel Butts M.D. (PCP) Patient Instructions [facility]
[2017-03-21] MEDS ORDERED: PROCHLORPERAZINE INJ 5 MG in SYRINGE 4 ML IV PRN (06:45)
[2017-03-21] MEDS ORDERED: NITROGLYCERIN 0.4 MG SL PER TAB CHARGE SL PRN (06:45)
[2017-03-21] MEDS ORDERED: GLUCAGON FOR INJ 1 MG VIAL SQ PRN (06:45)
[2017-03-21] MEDS ORDERED: TRAMADOL HCL 50 MG TAB PO PRN (06:45)
[2017-03-21] MEDS ORDERED: GLUCOSE 40% GEL 15 GM TUBE PO PRN (06:45)
[2017-03-21] MEDS ORDERED: GLUCOSE 10 TABS/TUBE PO PRN (06:45)
[2017-03-21] MEDS ORDERED: ACETAMINOPHEN 325 MG TAB PO PRN (06:45)
[2017-03-21] MEDS ORDERED: DEXTROSE 50% 50 ML SYR IV PRN (06:45)
[2017-03-21] MEDS: INSULIN ASPART 100 UNITS/ML 3 ML PEN SC SCH ×4 (07:00→21:24)
--- NOTE | 2017-03-21 07:58 | HISTORY & PHYSICAL EXAMINATION ---
DATE OF ADMISSION: 03/21/2017 PRIMARY CARE PHYSICIAN: Mabel Butts MD. CHIEF COMPLAINT: Chest pain, shortness of breath. HISTORY OF PRESENT ILLNESS: History obtained from patient and records. Medical history is significant for asthma as per records, hypertension, chronic systolic heart failure secondary to nonischemic cardiomyopathy, EF 40-44% from October 2016 echo, nonocclusive CAD, chronic left bundle branch block, moderate aortic valve stenosis, chronic anemia (baseline hemoglobin up to 13), chronic renal insufficiency (baseline creatinine of 1.9), DM2, insulin requiring, chronic thrombocytopenia as per records. Recent confinement June 2016 for chest pain. 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 Denies cough symptoms or fluid retention. No trauma. No unusual stress. Claims to be compliant with home medications. Spontaneous resolution at the Emergency Room. Initial systolic blood pressure in the ER 180s. Patient eventually had a cardiac catheterization June 2016 outpatient which showed nonobstructive CAD. nonischemic cardiomyopathy with low systolic function, mild aortic stenosis. Medical management for patient's cardiomyopathy recommended. A 2D echo from October 2016 showed concentric LV wall thickness, moderate diffuse LV hypokinesis, EF 44%, calcific aortic valve, moderate aortic valve stenosis. MEDICAL HISTORY: As above. SURGERIES: None. HOME MEDICATIONS: Include Neurontin, NovoLog, Lantus, Isordil, Protonix, Crestor, aspirin, Ventolin, vitamin D3, carvedilol, enalapril, Lasix. ALLERGIES: No known drug allergies. FAMILY HISTORY: There is a family history of heart disease. PERSONAL AND SOCIAL HISTORY: Nonsmoker, no chronic intake of alcoholic beverages. Currently disabled. REVIEW OF SYSTEMS: As per HPI. All 10 systems reviewed. All other ROS negative. PHYSICAL EXAMINATION: VITAL SIGNS: Blood pressure was noted to be 181/100, later 150/70, pulse rate 68, RR 22, temperature 36.8, sats 89 on room air, later 98 on 2 liters. GENERAL: Noted to be anxious, obese, no respiratory distress. SKIN: Pallor, warm. HEENT: Alopecia. Pale palpebral conjunctiva. No ptosis. Dry buccal mucosa. NECK: Short neck. No tenderness. LUNGS: Decreased breath sounds. No tenderness. HEART: Regular rate and rhythm. Systolic murmur. ABDOMEN: Some distension, nontender. EXTREMITIES: Minimal LE edema, no tenderness. No gross deformities. NEUROLOGIC: Coherent. No gross focality. LABORATORY DATA: Hemoglobin was noted to be 12.5, hematocrit 36.9, white cell count 7.71, platelets 120. Sodium 139, potassium 3.9, chloride 103, CO2 27, BUN 30, creatinine 1.7, glucose 126. Troponin was noted to be 0.074. pH 7.41, pCO2 of 45, pO2 83, 96 on 2 liters EKG as per my interpretation showed normal sinus rhythm, chronic left bundle branch block. Chest x-ray as per my interpretation : atelectasis, ASSESSMENT: 1. Acute hypoxemic respiratory failure w/ pleuritic chest pain complaints and troponin elevation rule out pulmonary embolism ddx : hypertensive urgency, noncompliance as per records 2. History of nonocclusive coronary artery disease 3. Chronic systolic heart failure secondary to non-ischemic cardiomyopathy Patient euvolemic. 4. Chronic LBBB 5. aortic stenosis. 6. Chronic thrombocytopenia. 7. Chronic kidney disease, creatinine at baseline. 8. Chronic anemia secondary to chronic kidney disease. PLAN: PCU supplemental O2. PE workup if D-dimer abnormal. (VQ scan, Dopplers given kidney dysfunction) Continue home BP meds, may need titration. Follow troponin. DVT prophylaxis, SCDs RE thrombocytopenia unless PE workup abnormal. Basal insulin, ISS BG goal 140-180. Carb count coverage indicated for suboptimal blood sugar control. Full code. MTDD
[2017-03-21] MEDS ORDERED: CARVEDILOL 12.5 MG TAB PO ONE (08:00)
[2017-03-21 08:03] VITALS: BP 166/93; PULSE 69; TEMP 36.6; BMI 36.9
[2017-03-21] MEDS ORDERED: NITROGLYCERIN 0.3 MG/1 TAB 100 TAB BTL SL PRN (08:45)
[2017-03-21] MEDS: HYDROmorphone INJ 0.5 MG/0.5 ML SYR IV PRN ×2 (08:45→13:36)
[2017-03-21] MEDS: ASPIRIN 81 MG ECTAB PO SCH (08:46)
[2017-03-21] MEDS: ISOSORBIDE DINITRATE 20 MG TAB PO SCH ×3 (08:46→18:02)
[2017-03-21] MEDS: GABAPENTIN 300 MG CAP PO SCH ×4 (08:47→21:23)
[2017-03-21] MEDS: PANTOprazole SOD 40 MG TAB PO SCH (08:48)
[2017-03-21] MEDS ORDERED: MoRPHine SULFATE 2 MG/ML CARP ONE (08:57)
[2017-03-21] MEDS: MoRPHine SULFATE 2 MG/ML CARP IV PRN (10:43)
[2017-03-21 11:32] VITALS: BP 111/70; PULSE 71; TEMP 36.8; O2SAT 93
[2017-03-21 12:00] VITALS: O2SAT 93
[2017-03-21] MEDS: ENALAPRIL MALEATE 10 MG TAB PO SCH (12:58)
--- NOTE | 2017-03-21 14:17 | ECHOCARDIOGRAM REPORT ---
*NOTICE TO RECEIVING DEMOCRAT AGENCY This information is strictly Confidential and protected under [place] law. [place] law prohibits you from making any further disclosure of this information unless further disclosure is expressly permitted by the written consent of the person to whom it pertains or is authorized by law. A general authorization for the release of medical or other information is not sufficient for this purpose. Hospital accepts no responsibility if the information is made available to any other person, INCLUDING THE PATIENT. Interpretation Summary * Name: NIRANJAN VILLALTA Study Date: 03/21/2017 10:43 AM BP: 166/93 mmHg * Patient Location: C.2T\S\S238\S\2 HR: 69 * : 1955 (M/d/yyyy) Gender: Male Height: 68 in * Age: 62 yrs Ethnicity: CA Weight: 242 lb * Ordering Physician: Bell Kay * Referring Physician: Self, Referred * Performed By: Aga Goff RDCS * * Reason For Study: Chest pain * BSA: 2.2 m2 * The study was technically limited. * Compared to prior study, there is no significant change. * -- Conclusions -- * Left ventricular systolic function is moderately reduced. * Ejection Fraction = 35-40%. * Septal motion is consistent with conduction abnormality. * Otherwise, moderate global hypokinesis. * There is moderate concentric left ventricular hypertrophy. * The aortic valve is moderately calcified. * 2D imaging and doppler interrogation of the aortic valve are discordant. Moderate aortic stensosis is suspected. * Trace aortic regurgitation. Procedure Details * A complete two-dimensional transthoracic echocardiogram was performed (2D, M-mode, Doppler and color flow Doppler). * A contrast injection of Definity was performed to improve assessment of LV function. * Contrast was injected into an intravenous site in the left arm. * One vial of Definity ultrasound contrast was diluted in normal saline to a total volume of 10 ml. A total of '2' ml of solution was administered during imaging. * Lot # [id number] of Definity utilized for procedure. * Expiration date 1 APR 06. * The attending nurse who injected the contrast agent was Afsaneh Fernandez RN. Left Ventricle * The left ventricle is normal in size. * There is moderate concentric left ventricular hypertrophy. * Left ventricular systolic function is moderately reduced. * Ejection Fraction = 35-40%. * Septal motion is consistent with conduction abnormality. * Otherwise, moderate global hypokinesis. Right Ventricle * The right ventricle is normal size. * The right ventricular systolic function is normal as assessed by tricuspid annular plane systolic excursion (TAPSE) (normal >1.5 cm). Atria * The left atrial size is normal. * Right atrial size is normal. * There is no evidence of atrial septal defect, but resolution does not allow assessment for a patent foramen ovale. Mitral Valve * The mitral valve is not well visualized. * There is no mitral valve stenosis. * Significant mitral regurgitation is absent. Tricuspid Valve * The tricuspid valve is not well visualized, but is grossly normal. * There is no tricuspid stenosis. * Significant tricuspid regurgitation is absent. Aortic Valve * The aortic valve is moderately calcified. * 2D imaging and doppler interrogation of the aortic valve are discordant. Moderate aortic stensosis is suspected. * Trace aortic regurgitation. Pulmonic Valve * The pulmonary valve is not well seen, but the Doppler examination is normal without significant regurgitation or stenosis. Great Vessels * The aortic root is normal size. Pericardium/Pleural * There is no pericardial effusion. Great Vessels * Normal inferior vena cava diameter and respiratory variation suggests normal central venous pressure. Left Ventricular Diastolic Function * Diastolic dysfunction, Grade II (pseudonormalization pattern). MMode 2D Measurements and Calculations IVSd 1.5 cm LVIDd 5.6 cm LVIDs 3.7 cm LVPWd 1.6 cm IVS/LVPW 0.90 FS 33.9 % EDV(Teich) 153.7 ml ESV(Teich) 58.2 ml EF(Teich) 62.1 % EDV(cubed) 175.7 ml ESV(cubed) 50.8 ml EF(cubed) 71.1 % LV mass(C)d 396.2 grams LV mass(C)dI 178.7 grams/m\S\2 SV(Teich) 95.5 ml SI(Teich) 43.1 ml/m\S\2 SV(cubed) 124.9 ml SI(cubed) 56.4 ml/m\S\2 Ao root diam 3.5 cm Ao root area 9.8 cm\S\2 ACS 1.3 cm LA dimension 3.8 cm LA/Ao 1.1 LVOT diam 2.1 cm LVOT area 3.6 cm\S\2 LVAd ap4 36.0 cm\S\2 LVLd ap4 8.8 cm EDV(MOD-sp4) 118.7 ml EDV(sp4-el) 124.8 ml LVAs ap4 26.9 cm\S\2 LVLs ap4 8.5 cm ESV(MOD-sp4) 72.4 ml ESV(sp4-el) 72.1 ml EF(MOD-sp4) 39.0 % EF(sp4-el) 42.2 % LVAd ap2 41.0 cm\S\2 LVLd ap2 9.2 cm EDV(MOD-sp2) 154.8 ml EDV(sp2-el) 155.9 ml LVLd %diff 3.6 % EDV(MOD-bp) 136.4 ml SV(MOD-sp4) 46.3 ml SI(MOD-sp4) 20.9 ml/m\S\2 SV(sp4-el) 52.7 ml SI(sp4-el) 23.8 ml/m\S\2 Doppler Measurements and Calculations MV E max bryan 87.3 cm/sec MV A max bryan 86.8 cm/sec MV E/A 1.0 MV dec time 0.25 sec Ao V2 max 272.6 cm/sec Ao max PG 29.7 mmHg Ao max PG (full) 27.8 mmHg Ao V2 mean 205.6 cm/sec Ao mean PG 18.3 mmHg Ao V2 VTI 59.4 cm IAN(V,A) 0.92 cm\S\2 IAN(V,D) 0.92 cm\S\2 AI max bryan 289.6 cm/sec AI max PG 33.5 mmHg AI dec slope 86.2 cm/sec\S\2 AI P1/2t 983.7 msec LV V1 max PG 2.0 mmHg LV V1 max 70.3 cm/sec SV(Ao) 579.1 ml SI(Ao) 261.3 ml/m\S\2 PA V2 max 134.4 cm/sec PA max PG 7.2 mmHg PA acc slope 1128.6 cm/sec\S\2 PA acc time 0.09 sec PA pr(Accel) 37.8 mmHg
[2017-03-21 16:23] VITALS: BP 133/78; PULSE 65; TEMP 37.1; O2SAT 90
[2017-03-21 19:22] VITALS: BP 131/65; PULSE 65; TEMP 36.7; O2SAT 96
--- NOTE | 2017-03-21 20:01 | DIAGNOSTIC IMAGING REPORT ---
BILATERAL LOWER EXTREMITY VENOUS DOPPLER HISTORY: Bilateral lower extremity swelling rule out DVT COMPARISON STUDY: None. FINDINGS: There is normal compressibility, flow, and augmentation within the bilateral lower extremity deep venous systems. IMPRESSION: No sonographic evidence of deep venous thrombosis within the right or left lower extremity. Electronically signed by: Barry Go M.D. 03/21/2017 8:00 PM Dictated Date/Time: 03/21/2017 7:55 PM
[2017-03-21] MEDS ORDERED: INSULIN GLARGINE SOLOSTAR 100 UNITS/ML 3 ML PEN SC SCH (21:00)
[2017-03-21] MEDS: CARVEDILOL 12.5 MG TAB PO SCH (21:23)
[2017-03-21] MEDS: ROSUVASTATIN CALCIUM 20 MG TAB PO SCH (21:23)
[2017-03-21 23:47] VITALS: BP 151/76; PULSE 60; TEMP 36.9; O2SAT 96
[2017-03-22] VITALS (7 sets, daily range): BP systolic 121–169; BP diastolic 71–90; PULSE 60–74; TEMP 36.5–37.1; O2SAT 93–96
[2017-03-22] MEDS: INSULIN ASPART 100 UNITS/ML 3 ML PEN SC SCH ×4 (07:00→21:00)
[2017-03-22 07:11] LABS: BASO % 0.4 %; BASO ABS # 0.02 K/uL (0-0.2); COMPLETE YES; EOS % 3.4 %; HEMATOCRIT 36.1 % (42-52); IG% 0.2 %; LYMPH % 25.4 %; LYMPH ABS # 1.41 K/uL (1.2-3.4); MEAN CORPUSCULAR HEMOGLOBIN 27.7 pg (25-34); MEAN PLATELET VOLUME 9.3 fL (7.4-10.4); MONO % 10.8 %; NEUT % 59.8 %; PLATELET COUNT 111 K/uL (130-400); WHITE BLOOD COUNT 5.56 K/uL (4.8-10.8)
[2017-03-22 07:41] LABS: BUN/CREATININE RATIO 16.5 (10-20); CALCIUM 8.4 mg/dl (8.5-10.1); CREATININE 2.12 mg/dl (0.60-1.40); POTASSIUM 3.8 mmol/L (3.5-5.1)
[2017-03-22] MEDS: CARVEDILOL 12.5 MG TAB PO SCH ×2 (09:34→21:23)
[2017-03-22] MEDS: GABAPENTIN 300 MG CAP PO SCH ×4 (09:34→21:24)
[2017-03-22] MEDS: ASPIRIN 81 MG ECTAB PO SCH (09:34)
[2017-03-22] MEDS: PANTOprazole SOD 40 MG TAB PO SCH (09:35)
[2017-03-22] MEDS: ISOSORBIDE DINITRATE 20 MG TAB PO SCH ×3 (09:36→18:48)
[2017-03-22] MEDS: ALBUT/IPRATROP 3MG/0.5MG NEB 3 ML VIAL INH PRN (11:17)
--- NOTE | 2017-03-22 13:21 | CARDIOLOGY CONSULTATION ---
DATE OF CONSULTATION: 03/22/2017 REFERRING PHYSICIAN: Bell Kay MD. CHIEF COMPLAINT ON ADMISSION: Difficulty breathing. HISTORY OF PRESENT ILLNESS: Mr. Delarosa is a 62-year-old gentleman who is known to the cardiology service. He presented to the Emergency Department with shortness of breath and hypoxia. Initial SaO2 noted to be 89% on room air. He also described left rib and left-sided chest discomfort with deep inspiration. The patient had been hunting the day prior and noted multiple falls. He reports difficulty standing up with weakness and fatigue. He feels his balance has become worse over the past 6 months. The patient was initially evaluated by cardiology approximately 8 months ago for similar symptoms of chest discomfort and shortness of breath. At that time, his troponins were mildly elevated as they are during this hospitalization. A cardiac catheterization demonstrated nonobstructive coronary disease and medical management was advised. There is also a question of significant aortic stenosis which was found to be mild per invasive testing. His repeat echocardiogram demonstrates stable LV systolic function with mild to moderate aortic stenosis. The patient seen and examined at the bedside. Notes left-sided discomfort with deep inspiration. There is no reproducible pain with palpation. ECG demonstrates left bundle branch block. His troponins are mildly elevated; however, unchanged when compared to lab studies performed nearly 9 months ago. He denies any excessive alcohol use. Denies any sick contacts, fever or chills. Reports dyspnea on exertion, fatigue, and wheezing prior to admission. The patient feels that he may have been exposed to excessive cold air which could have exacerbated his symptoms. He denies orthopnea or PND. No edema or weight gain. Denies excessive sodium intake. Tolerating medications listed below. Offers no other complaints at this time. REVIEW OF SYSTEMS: The pertinent positive noted above, a comprehensive 10-system review is otherwise negative. PAST MEDICAL HISTORY: 1. Nonobstructive coronary disease with the most significant stenosis being circumflex marginal ostial stenosis of 50%. 2. Mild aortic stenosis by cardiac catheterization. 3. Left ventricular hypertrophy. 4. Nonischemic cardiomyopathy with ejection fraction ranging from 35-45%. 5. Diabetes type 2 with neuropathy. 6. Dyslipidemia. 7. CKD stage III. 8. Hypertension. 9. Actinic keratoses. PAST SURGICAL HISTORY: 1. Cardiac catheterization x3. 2. Kidney and ureteral surgery. SOCIAL HISTORY: Lifelong nonsmoker; however chews tobacco. Denies alcohol or illicit drug use. FAMILY HISTORY: Negative for premature coronary artery disease or sudden cardiac . Mother had a history of congestive heart failure. ALLERGIES: No known drug allergies. CURRENT OUTPATIENT MEDICATIONS: 1. Aspirin 81 mg daily. 2. Carvedilol 12.5 mg twice daily. 3. Vitamin D daily. 4. Enalapril 1 tablet at noon. 5. Furosemide 20 mg twice weekly. 6. Neurontin 300 mg q.i.d. 7. NovoLog FlexPen 7 units in the morning, 14 units prior to meals. 8. Lantus 45 units at bedtime. 9. Isordil 20 mg t.i.d. 10. Protonix 40 mg daily. 11. Crestor 40 mg daily. 12. Albuterol as needed. 13. Oxycodone/acetaminophen every 6 hours as needed. ECG demonstrates sinus rhythm with left bundle branch block. A 2D transthoracic echo demonstrates ejection fraction of 35-40% with moderate left ventricular hypertrophy, mild to moderate aortic stenosis, trace aortic regurgitation. LABORATORY DATA: White blood cell count 5.56, hemoglobin is 11.9, platelet count is 111. D-dimer 720. Chest x-ray on admission demonstrates subtle patchy bibasilar opacities suggesting atelectasis or pneumonitis. Venous Dopplers negative for DVT. PHYSICAL EXAMINATION: VITAL SIGNS: Temperature 36.7 degrees centigrade, pulse 61 beats per minute and regular, respiratory rate is 18 breaths per minute, blood pressure 134/72 SaO2 is 96% on room air. GENERAL: NAD, overweight, awake, alert and oriented x3. HEENT: His mucous membranes are moist. No scleral icterus. Conjunctivae pink. NECK: Supple without JVD or HJR, no carotid bruit. HEART: Regular with a normal S1 and S2. There is no murmur, rub, or gallop. LUNGS: Clear without rales, rhonchi or wheeze. ABDOMEN: Soft, nontender. No rebound or guarding. Normal bowel sounds. EXTREMITIES: Warm and dry. There is no clubbing, cyanosis, or edema. NEUROLOGIC: Demonstrates no focal motor deficit, however, diffuse muscular weakness is reported. FINAL IMPRESSION: 1. A 62-year-old male presents with dyspnea, hypoxia, atypical chest discomfort as previously reported in June 2016. Previous symptoms led to cardiac catheterization demonstrating nonobstructive coronary artery disease in the setting of minimally elevated troponins. His current presentation appears similar. I do not suspect his symptoms are suggestive of acute coronary syndrome at this time. 2. Mild to moderate aortic stenosis. 3. Nonischemic cardiomyopathy with moderate left ventricular hypertrophy, infiltrative process not excluded. 4. Chronic kidney disease with superimposed acute kidney injury. 5. X-ray evidence of pneumonitis. 6. Elevated D-dimer. 7. Hypertension -- controlled. 8. Chronic left bundle branch block. PLAN AND RECOMMENDATIONS: Repeat resting 2D transthoracic echo is stable. Cardiac enzymes remained minimally elevated and flat. With the patient's left ventricular hypertrophy, nonischemic cardiomyopathy, and renal dysfunction, potential for infiltrative process considered. I will order SPEP at this time. Consider pulmonary consultation for further evaluation of possible pneumonitis, wheezing, hypoxia. Could also consider potential nephrology evaluation for renal dysfunction. The patient will continue current cardiovascular medications as noted above. Sed rate also ordered at this time. Findings and recommendations discussed with the hospitalist service. Thank you for allowing me to participate in the care of your patient.
--- NOTE | 2017-03-22 14:38 | DIAGNOSTIC IMAGING REPORT ---
NUCLEAR PULMONARY VENTILATION/PERFUSION SCAN CLINICAL HISTORY: Pleuritic chest pain. Dyspnea. COMPARISON STUDY: Chest radiograph dated 03/21/2017. TECHNIQUE: Initially, ventilation images of both lungs are obtained following the inhalation of 33 mCi of aerosolized technetium 99m DTPA. Subsequently, perfusion images of both lungs were obtained following the IV administration of 5.5 mCi of technetium 99m MAA. Ventilation and perfusion images were acquired in the anterior, posterior, and oblique projections. FINDINGS: A chest x-ray performed 03/21/2017 shows cardiac enlargement. Patchy airspace opacities at the lung bases are nonspecific and may represent a mild infectious/inflammatory pneumonitis. The ventilation of both lungs is heterogeneous. There is deposition of tracer within the central airways. Inhaled tracer is seen in the stomach. No perfusion defects are identified on the perfusion imaging. IMPRESSION: Findings are considered low probability for pulmonary embolus. Electronically signed by: Guerrero Hebert M.D. 03/22/2017 2:37 PM Dictated Date/Time: 03/22/2017 2:35 PM
--- NOTE | 2017-03-22 15:16 | DIAGNOSTIC IMAGING REPORT ---
CT SCAN OF THE CHEST WITHOUT IV CONTRAST CLINICAL HISTORY: Dyspnea. COMPARISON STUDY: Chest x-ray dated 03/21/2017. TECHNIQUE: CT scan of the thorax was performed from the thoracic inlet to the upper abdomen. Images are reviewed in the axial, sagittal, and coronal planes. IV contrast was not administered for this examination as per the front clinician. A dose lowering technique was utilized adhering to the principles of ALARA. CT DOSE: 743.84 mGy.cm FINDINGS: Thyroid: Imaged portions of the thyroid gland are normal in size and attenuation. Thoracic aorta: There is atherosclerotic calcification of the thoracic aorta, which is normal in caliber and demonstrates standard 3-vessel arch anatomy. Heart: The heart is enlarged and without pericardial effusion. The coronary arteries and aortic valve leaflets are densely calcified. There is diminished attenuation of the cardiac blood pool as compared to the myocardium suggesting anemia. Lungs and pleural spaces: Trace pleural effusions are identified with bibasilar atelectasis. The trachea and central airways are clear. Mild intralobular septal thickening is noted. No airspace consolidation is seen typical for pneumonia. Mediastinum: There are prominent mediastinal lymph nodes which measure up to 9 mm in short axis. These are not pathologically enlarged by size criteria. Luisa: Not well assessed without IV contrast. Axillae: There is no axillary lymphadenopathy. Upper abdomen: A small hiatal hernia is identified. Scattered calcified granulomas are identified in the spleen. A 4.2 cm exophytic cyst arises from the upper pole of the left kidney. 1.4 cm low-attenuation right adrenal nodule meets CT criteria for a fat-containing adenoma. Skeletal structures: The skeletal structures appear osteopenic. No lytic or blastic bony lesions are seen. Arthritic change is seen in the shoulders and thoracic spine. IMPRESSION: 1. Cardiomegaly. Mild intralobular septal thickening is identified and suggests congestive failure. Clinical correlation will be required. 2. There are trace pleural effusions. 3. No airspace consolidation is seen typical for pneumonia. 4. Additional findings as above. Electronically signed by: Guerrero Hebert M.D. 03/22/2017 3:14 PM Dictated Date/Time: 03/22/2017 3:09 PM
[2017-03-22] MEDS: DOXYCYCLINE HYCLATE 100 MG CAP PO SCH ×2 (15:29→21:24)
--- NOTE | 2017-03-22 17:31 | Progress Note ---
Internal Med Progress Note Date of Service: Mar 22, 2017. Provider Documentation: SUBJECTIVE: no complain of chest pain today having SOB with activity mentions his legs feel weak , walking on hallway made him SOB , dizzy and lightheaded no arrhythmia noted on tele his symptoms resolved after resting for few mins OBJECTIVE: Vital Signs-as noted below Exam: General-no sign of distress, well appearing male , very pleasant , conversing Eyes-sclera non icteric, PERRLA/EOMI ENT-normal oropharynx Neck-no thyromegaly , trachea midline Lungs-no rales or wheeze notes, normal air entry Heart-regular S1/S2 Abdomen-soft ,non tender Extremities-no lower ext edema, no rash or deformity Neuro-AAO x3, no focal deficit Lab data as noted below. ASSESSMENT & PLAN: CHEST PAIN /TESFAYE : presented with pleuritic chest pain , TESFAYE no hypoxia chest pain improved today , has persisted SOB with exertion -new symptom at baseline pt is very active , no evidence of ACS, mild elevation in setting of PAM on CKD stage 3 -unlike to coronary plaque rupture had cardiac cath earlier this year for similar symptom -shows non obstructive coronaries Resting ECHO -unchanged form prior appreciate input form Cardiology had elevated D Dimer lower ext Doppler negative V/q scan low probability for PE pulmonology consult appreciated ordered for nocturnal pulse ox to R/o ARPIT recommend out pt PFT 2 step exercise tomorrow AM cxray shows mild basilar interstitial prominence CT chest no obvious infiltrate noted HX OF NON ISCHEMIC CARDIOMYOPATHY : cardiac cath on 07/02/16 non obstructive CAD with elevated Left Ventricular end diastolic pressure with chronic CHF systolic failure EF 30 % clinically appears to be euvolemic Enalapril on hold for PAM -elevated Cr PAM ON CKD STAGE 3 Cr elevated 1.9-> 2 will hold ACEI avoid NSAID's /contrast repeat PRP nephrology consulted HTN: BP stable cont out pt meds -Hydralazine, Isordil Enalapril on hold due to above TYPE 2 DM : cont Lantus insulin SSI FULL CODE DVT PROPHYLAXIS sub q heparin DISPOSITION expected to be discharged home when medically stable Pt/OT eval prior to discharge medicine follow up with Dr Harley Mccabe Vital Signs: Date Time Temp Pulse Resp B/P (MAP) Pulse Ox O2 Delivery O2 Flow Rate FiO2 03/22/17 19:37 36.8 64 21 163/77 (105) 94 Room Air 12/3/17 16:00 Room Air 03/22/17 15:33 36.5 60 22 166/88 (114) 96 Room Air 03/22/17 12:00 Room Air 03/22/17 11:45 36.7 61 18 134/72 (92) 96 Nasal Cannula 03/22/17 11:17 66 16 95 Room Air 03/22/17 08:00 Room Air 03/22/17 07:54 37.1 66 18 156/75 (102) 93 1.0 03/22/17 04:00 Room Air 03/22/17 02:41 37.0 62 18 121/71 (88) 95 Room Air 03/22/17 00:02 Room Air 03/21/17 23:47 36.9 60 18 151/76 (101) 96 Room Air Lab Results: Results Past 24 Hours Test 03/21/17 20:13 03/22/17 06:21 03/22/17 06:36 03/22/17 06:40 Range/Units Bedside Glucose 242 64 78 70-99 mg/dl White Blood Count 5.56 4.8-10.8 K/uL Red Blood Count 4.30 4.7-6.1 M/uL Hemoglobin 11.9 14.0-18.0 g/dL Hematocrit 36.1 42-52 % Mean Corpuscular Volume 84.0 80-100 fL Mean Corpuscular Hemoglobin 27.7 25-34 pg Mean Corpuscular Hemoglobin Concent 33.0 32-36 g/dl Platelet Count 111 130-400 K/uL Mean Platelet Volume 9.3 7.4-10.4 fL Neutrophils (%) (Auto) 59.8 % Lymphocytes (%) (Auto) 25.4 % Monocytes (%) (Auto) 10.8 % Eosinophils (%) (Auto) 3.4 % Basophils (%) (Auto) 0.4 % Neutrophils # (Auto) 3.33 1.4-6.5 K/uL Lymphocytes # (Auto) 1.41 1.2-3.4 K/uL Monocytes # (Auto) 0.60 0.11-0.59 K/uL Eosinophils # (Auto) 0.19 0-0.5 K/uL Basophils # (Auto) 0.02 0-0.2 K/uL RDW Standard Deviation 38.2 36.4-46.3 fL RDW Coefficient of Variation 12.7 11.5-14.5 % Immature Granulocyte % (Auto) 0.2 % Immature Granulocyte # (Auto) 0.01 0.00-0.02 K/uL Sodium Level 140 136-145 mmol/L Potassium Level 3.8 3.5-5.1 mmol/L Chloride Level 105 98-107 mmol/L Carbon Dioxide Level 31 21-32 mmol/L Anion Gap 4.0 3-11 mmol/L Blood Urea Nitrogen 35 7-18 mg/dl Creatinine 2.12 0.60-1.40 mg/dl Est Creatinine Clear Calc Drug Dose 42.2 ml/min Estimated GFR () 37.3 Estimated GFR (Non- 32.1 BUN/Creatinine Ratio 16.5 10-20 Random Glucose 80 70-99 mg/dl Calcium Level 8.4 8.5-10.1 mg/dl Test 03/22/17 07:27 03/22/17 11:26 03/22/17 15:27 03/22/17 16:24 Range/Units Bedside Glucose 95 104 127 70-99 mg/dl Erythrocyte Sedimentation Rate 17 0-14 mm/hr
--- NOTE | 2017-03-22 19:56 | PULMONARY CONSULTATION ---
DATE OF CONSULTATION: 03/22/2017 TIME: 5:15 p.m. HISTORY OF PRESENT ILLNESS: The patient is a 62-year-old male who is being seen in room 238, bed 2. He came to the Emergency Room in the pump assembler hours of March 21. He awakened in the middle of the night with shortness of breath. He has had ongoing episodes of some shortness of breath at night. He also complains of pain in the left lower anterior chest. The patient has been having problems similar to this for many months. In June 2016, he had a catheterization done that was minimally abnormal. He had an Emergency Room stay with an overnight visit. He was having same type of pain at that point in time. It never really went away. The chest pain seems to be worsened with deep breathing. It does not usually occur when he is perfectly still. It may occur somewhat with exertion. It is not believed that he has significant coronary artery disease that should be causing this. He does not have palpatory tenderness. Recently, the patient has noted shortness of breath when he would be riding a [employer] going to his [employer] stand. He states it seemed to him that the cold air was bothering his breathing. He has an occasional cough. There is just a little bit of mucus. He has never coughed up any blood. The mucus is typically white. He does have episodes of dizziness upon standing from a sitting position. The patient did have a sleep study several years ago. He states it was in [place]. Apparently he was told that he had sleep apnea. He did not tolerate treatment with CPAP. They sent him home with oxygen. He only used the oxygen a short time and did not feel any difference so he sent the oxygen back. The patient does snore. His tells him that he stops breathing at night. He has disturbed nocturnal sleep with both sleep onset and sleep maintenance problems. He has excessive sleepiness during the day. His brother was with him during this evaluation. His brother states that Willis is very sleepy all the time. The patient admits to dozing off about 4 times during the day. He was at some point in time told that he has mild asthma. He has an inhaler at home that he uses occasionally that sounds like ProAir. He believes that it helps. He has never tried it, however, when he was having acute episodes of shortness of breath. He has not been on any maintenance therapy. The patient has never smoked. He does chew tobacco for 55 years. PAST SURGICAL HISTORY: 1. Adrenal gland surgery. 2. Cardiac catheterization x3. PAST MEDICAL HISTORY: 1. Coronary artery disease. 2. Chronic kidney disease. 3. Diabetes. 4. Hyperlipidemia. 5. Hypertension. 6. Nonischemic cardiomyopathy. 7. Aortic stenosis. FAMILY HISTORY: His brother had asthma as a child, but he outgrew it. There is a sister who had diabetes. There is a brother that had congestive heart failure. 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 He also worked in [employer]. REVIEW OF SYSTEMS: Generally negative except for the above-mentioned complaints. PHYSICAL EXAMINATION: GENERAL: The patient is a 62-year-old male who was cooperative, alert and oriented. He did not appear in any distress. VITAL SIGNS: Weight is 106.4 kilograms. HEENT: Pupils were reactive. Nares were clear. Mouth exam shows a Mallampati grade 3 pharynx. NECK: He has a large neck. No lymph nodes were palpable. HEART: Heart rate was 67 per minute. The rhythm is regular. Blood pressure 166/88. Systolic murmur grade 2-3/6 was heard. LUNGS: Agarwal were clear bilaterally. No wheezes, rales or rhonchi were heard. Saturation was 96% on room air. ABDOMEN: Obese. Bowel sounds were present. There was no tenderness to palpation or masses. EXTREMITIES: Showed no cyanosis, clubbing or edema. LABORATORY DATA: White count is 5.56. Hemoglobin 11.9. Platelets 111,000. Sed rate is 17. D-dimer was 720. PTT was 25.6. Urinalysis shows +2 protein, +1 glucose. Blood gas showed a pH of 7.41, pCO2 of 45 and a pO2 of 83 done on 2 liters. Electrolytes show sodium 140, potassium 3.8, chloride 105, bicarbonate 31. The BUN was 35 with a creatinine of 2.12. A CAT scan done today without contrast showed cardiomegaly. There were trace pleural effusions, very minimal. No significant parenchymal disease was noted. Small hiatal hernia was seen. The spleen had calcified granulomas. Venous Doppler was negative. VQ scan was low probability for pulmonary embolic disease. IMPRESSION: 1. Obstructive sleep apnea. 2. Shortness of breath of undetermined origin. 3. Chest pain, undetermined etiology. 4. Obesity. COMMENTS AND RECOMMENDATIONS: The patient's symptom complex regarding the chest pain is certainly unclear as to its cause. I am doubtful this is a pulmonary emboli. Likewise, I cannot really attribute it to any definite pulmonary problem considering the chronicity and an absence of findings on CAT scan and VQ scan. I do believe he has sleep apnea based upon his symptoms and his history. The patient is now agreeable to reevaluate the sleep apnea problem. I will arrange for him to have a sleep study done as an outpatient after he is discharged. Regarding the shortness of breath, I would like to do pulmonary a function test. We could try to get them done while he is in the hospital if feasible. If not, they could be done as an outpatient. I believe we should do an overnight pulse oximetry study and perhaps even do that tonight. That should be done on room air to see if he qualifies for nocturnal oxygen at home. Thank you very much for asking me to assist in his care.
[2017-03-22] MEDS: ROSUVASTATIN CALCIUM 20 MG TAB PO SCH (21:24)
[2017-03-22] MEDS: INSULIN GLARGINE SOLOSTAR 100 UNITS/ML 3 ML PEN SC SCH (21:25)
[2017-03-23] VITALS (10 sets, daily range): BP systolic 148–202; BP diastolic 71–112; PULSE 61–73; TEMP 36.4–36.9; O2SAT 91–100; Ht 172.7 cm; Wt 106.8 kg
[2017-03-23] MEDS: ISOSORBIDE DINITRATE 20 MG TAB PO SCH ×3 (06:17→16:44)
[2017-03-23] MEDS: ALBUT/IPRATROP 3MG/0.5MG NEB 3 ML VIAL INH PRN (06:23)
[2017-03-23 08:02] LABS: BUN/CREATININE RATIO 17.5 (10-20); CALCIUM 8.7 mg/dl (8.5-10.1); CREATININE 2.02 mg/dl (0.60-1.40); POTASSIUM 4.3 mmol/L (3.5-5.1)
[2017-03-23] MEDS: DOXYCYCLINE HYCLATE 100 MG CAP PO SCH (08:25)
[2017-03-23] MEDS: CARVEDILOL 12.5 MG TAB PO SCH ×2 (08:26→21:01)
[2017-03-23] MEDS: ASPIRIN 81 MG ECTAB PO SCH (08:26)
[2017-03-23] MEDS: PANTOprazole SOD 40 MG TAB PO SCH (08:28)
[2017-03-23] MEDS: GABAPENTIN 300 MG CAP PO SCH ×4 (08:28→21:01)
[2017-03-23] MEDS: INSULIN ASPART 100 UNITS/ML 3 ML PEN SC SCH ×4 (08:33→21:00)
[2017-03-23 08:42] LABS: ESTIMATED AVERAGE GLUCOSE 203 mg/dl; HA1C FLAG Normal (Normal)
--- NOTE | 2017-03-23 08:56 | NEPHROLOGY CONSULTATION ---
DATE OF CONSULTATION: 03/23/2017 ATTENDING OF RECORD: Dr. Kay. REASON FOR CONSULTATION: APM. HISTORY OF PRESENT ILLNESS: This is a 62-year-old male who follows with my partner, Dr. Kathleen Bosch for CKD secondary to diabetes. The patient was last seen in December of this year, who has resistant hypertension, status post adrenalectomy with underlying CKD stage III with 800 mg of proteinuria. The patient has been a type 2 diabetic since early on insulin, hypertension since young adulthood with a history of urgency prior to the adrenalectomy, chronic ischemic heart disease, bilateral pleural effusions, severe reduced LV function with an EF of 35% with moderate to severe aortic stenosis. The left adrenalectomy was done to control blood pressure at [facility] in [place] in March 2012. No NSAIDs. The patient's creatinine is normally around 2.1 range in the setting of diabetes and hypertension with under a gram of proteinuria. PAST MEDICAL HISTORY: Hypertension, type 2 diabetes, nonischemic cardiomyopathy, moderate aortic stenosis, and CKD stage III with baseline creatinine of 1.9-2.1. PAST SURGICAL HISTORY: Adrenalectomy secondary to hypertension. FAMILY HISTORY: Significant for heart disease. SOCIAL HISTORY: Chews tobacco. Does not smoke tobacco. No alcohol. No drugs. Lives at home. REVIEW OF SYSTEMS: Positive pain in the chest, which he describes as an 8/10, radiating from both sides. Admits to not checking an eye exam for several years. Does chew tobacco. Positive shortness of breath with overexertion. No fevers or chills. No blurry vision. No dysphagia. No nausea or vomiting. No diarrhea or constipation. All other review of systems otherwise negative. CURRENT MEDICATIONS: Lantus 30 units subQ at night, doxycycline 100 mg p.o. b.i.d., Coreg 12.5 p.o. b.i.d., Crestor 40 mg at night, aspirin 81 mg a day, Neurontin 300 mg p.o. 4 times a day, and Protonix 40 mg daily. PHYSICAL EXAMINATION: VITAL SIGNS: Temperature 36.9, pulse 72, respiratory rate 18, blood pressure 164/87, and satting 91% on room air. GENERAL: Awake, alert, and oriented x3. EYES: No scleral icterus. ENT: Moist mucous membranes. NECK: Supple. LUNGS: Clear to auscultation. CARDIAC: A 3/6 systolic murmur. ABDOMEN: Bowel sounds positive. Soft, nontender, and nondistended. EXTREMITIES: No significant clubbing, cyanosis or edema. NEUROLOGICALLY: Nonfocal. DERMATOLOGIC: No rash or ulcers noted. LABORATORY DATA: Creatinine was 1.76 on admission. This morning, it is up to 2.12. Sodium level is 140, potassium 3.8, chloride is 105, bicarbonate is 31, BUN is 35, creatinine is 2.12, calcium is 8.4, and glucose is 80. White count is 5. H&H 11 and 36. Platelet count is 111. Sed rate is 17. INR is 1. Blood gas on the 2nd showed a pH 7.41, pCO2 of 45, pO2 of 83, and bicarbonate of 28. UA shows a pH of 6, specific gravity 1.012, 2+ protein, 1+ glucose, and trace blood. Immunofixation is pending. Chest CT without contrast showed cardiomegaly, trace pleural effusions, no airspace consolidation. Lungs scan showed low probability for PE. Dopplers of the lower extremities were negative. Chest x-ray shows subtle patchy bibasilar opacities to suggest atelectasis or pneumonitis. Echo was done showing an EF of 35%-40%, left ventricular systolic function moderately reduced, moderate global hypokinesis, moderate concentric LVH, and aortic valve moderately calcified. ASSESSMENT: 1. Chronic kidney disease, stage III. Follows by my partner, Dr. Kathleen Bosch. Creatinine does vary quite a bit and has chronic kidney disease secondary to underlying hypertension and diabetes. Denies any NSAIDs. Creatinine did worsen from 1.7 up to 2.1, although still within his relatively normal baseline. Creatinine in the middle of February was 2 and in October, it was 2.1. Today's labs are pending. Volume status in my opinion appears appropriate. Hemoglobin A1c last check was 8.6 in February of this year and would continue to reinforce the importance of diabetes control and blood pressure control. The patient has had this rib pain before and x-rays of the ribs were normal as an outpatient in October and MRI of the spine as well, which showed no compression fracture identified, which has some mild disk herniation at T10-T11 without significant canal stenosis. Renal ultrasound in 2012 showed a right kidney of 12.7 cm and left kidney of 12.5 cm. Renal cortical thickness was maintained, which has some mildly increased cortical echogenicity consistent with chronic medical renal disease. The patient in 2012 was screened for Bence Weiss, which was negative. 2. Hypertension, currently on Coreg 12.5 mg p.o. b.i.d. and Isordil 20 mg p.o. t.i.d. Enalapril is on hold. We will see what the patient's kidney function is today. If it is stable in the low 2's, okay in my opinion to restart the enalapril to help with the blood pressure control. It appears to be mostly in the 160s to 180s; however, may be pain mediated secondary to his chest discomfort. In my opinion, the patient has chronic kidney disease at baseline and as long as his creatinine remains relatively stable, would consider restarting VENKATA to help with blood pressure management. Unclear cause to his chest discomfort. MRI of the spine, x-rays of the ribs, echo of the heart, CT scan of the chest has thus far been unrevealing. Pulmonary was consulted and are interested in doing pulmonary function tests and is concerned that the patient may have obstructive sleep apnea, but unable to delineate the cause the patient's chest pain. I appreciate the consultation. NICOLE
[2017-03-23] MEDS: MoRPHine SULFATE 2 MG/ML CARP IV PRN (09:46)
[2017-03-23] MEDS: ENALAPRIL MALEATE 10 MG TAB PO SCH (10:57)
--- NOTE | 2017-03-23 11:25 | Discharge Instructions ---
Discharge Instructions Date of Service Mar 23, 2017. Admission Reason for Admission: Respiratory Failure,Acute Discharge Discharge Diagnosis / Problem: CHEST PAIN NO EVIDENCE OF CORONARY SYNDROME Discharge Goals Goal(s): Decrease discomfort, Increase independence, Improve disease control, Diagnostic testing, Therapeutic intervention Activity Recommendations Activity Limitations: resume your previous activity . Instructions / Follow-Up Instructions / Follow-Up HOSPITAL FOLLOW UP : 03/25/2017 9:40 AM Leopoldo Hernandez MD Internal Medicine [facility] PULMONOLOGY FOLLOW UP WITH DR STEVE IN 1-2 WEEKS WILL NEED OUT PATIENT SLEEP STUDY AND PULMONARY FUNCTION TEST PLEASE CALL OFFICE FOR APPOINTMENT YOUR OXYGEN LEVEL DROPS AT NIGHT WHILE YOU SLEEP PLEASE WEAR OXYGEN 2 L AT NIGHT -WILL IMPROVE YOUR SHORTNESS OF BREATH , TIREDNESS AND FATIGUE Current Hospital Diet Patient's current hospital diet: AHA Diet (Heart Healthy), Diabetes Type 2 Diet Discharge Diet Recommended Diet: AHA Diet (Heart Healthy), Diabetes Type 2 Diet Pending Studies Studies pending at discharge: no Laboratory Results Hemoglobin A1c Test 03/23/17 06:49 Range/Units Estimated Average Glucose 203 mg/dl Hemoglobin A1c 8.7 H 4.5-5.6 % Medical Emergencies . Who to Call and When: Medical Emergencies: If at any time you feel your situation is an emergency, please call 911 immediately. . Non-Emergent Contact Non-Emergency issues call your: Primary Care Provider . . "Provider Documentation" section prepared by Bell Kay. . VTE Core Measure Inpt VTE Proph given/why not?: Unfractionated heparin SQ
--- NOTE | 2017-03-23 12:09 | Pulmonology Progress Note ---
Pulmonary Progress Note Date of Service Mar 23, 2017. Attending Dr. Reyes Subjective Patient is feeling improved today. He continues to be mildly SOB with exertion but has no current chest pain. The patient did have a 2 step done today which showed that he does not need ambulatory O2. He did also have a nocturnal pulse oximetry study- reviewed below. Labs reviewed: Creatinine 2.02 BUN 35 Hgb A1C 8.7 Hep C screen pending. ESR 17 WBC 5.[address] 03/22 showed cardiomegaly, mild intralobular septal thickening identified and suggests congestive failure. These images were viewed. Nocturnal Pulse Oximetry study reviewed: # events total- 477 Max time < 88%- 408 s Events <88%- 272 Medications reviewed: Doxycycline Lantus Duoneb Objective VS reviewed: Afebrie HR 63 RR 18 BP 198/107 SaO2 91-96% on room air General: Patient is awake, alert, cooperative, and in no acute distress. Obese Head: Normocephalic, Atraumatic. ENT: PERRLA, No discharge, EOMI, Sclera normal Neck: Normal ROM. Trachea midline. No stridor Respiratory: No adventitious sounds heard on exam. Normal breath sounds. No respiratory distress. No accessory muscle use. Cardiovascular: Regular rate and rhythm. Murmur appreciated. Abdomen: Nontender to palpation. Normal bowel sounds hear throughout. No guarding. Abdomen is soft and nontender Back: Normal inspection. Extremities: Normal ROM Neuro: Alert, Oriented x 3. CN II-XII grossly intact. Sensation and motor function grossly intact. Psych: Mood and affect are normal. Assessment & Plan Obstructive sleep apnea. Shortness of breath of undetermined origin. Chest pain, undetermined etiology. Obesity Patient with overnight desaturation noted on Oximetry study. Patient should qualify for nocturnal O2 at home. He will need a polysomnogram as an outpatient to further assess for possible sleep apnea. He should follow up with Dr. Schroeder. Recommend PFT's as well- will perform here if he is going to be inhouse, otherwise can perform as an outpatient to further evaluated SOB. CT of the chest showed cardiomegaly but no acute process. VQ scan showed low probability for PE. Recommend discharge with nocturnal O2 and follow up as outpatient. No further intervention necessary at this time from pulmonary standpoint. We will sign off. Data Medications: Current Inpatient Medications Medications (Trade) Dose Ordered Sig/Larry Route Start Time Stop Time Status Last Admin Dose Admin Acetaminophen (Tylenol Tab) 650 mg Q4H PRN PO 03/21/17 06:45 04/20/17 06:44 Nitroglycerin (Nitrostat Tab) 0.4 mg UD PRN SL 03/21/17 06:45 04/20/17 06:44 Insulin Aspart (novoLOG ASPART) SLIDING SCALE If C... ACHS SC 03/21/17 07:00 04/20/17 06:59 03/23/17 08:33 3 UNITS Glucose (Glucose 40% Gel) 15-30 GRAMS 15 GRAMS... UD PRN PO 03/21/17 06:45 04/20/17 06:44 Glucose (Glucose Chew Tab) 4-8 Tablets 4 Tabl... UD PRN PO 03/21/17 06:45 04/20/17 06:44 Dextrose (Dextrose 50% 50ML Syringe) 25-50ML OF 50% DW IV FOR... UD PRN IV 03/21/17 06:45 04/20/17 06:44 Glucagon (Glucagon Inj) 1 mg UD PRN SQ 03/21/17 06:45 04/20/17 06:44 Albuterol/ Ipratropium (Duoneb) 3 ml Q2H PRN INH 03/21/17 06:45 04/20/17 06:44 03/23/17 06:23 3 ML Tramadol HCl (Ultram Tab) not relieved by tylenol @ Q6H PRN PO 03/21/17 06:45 04/20/17 06:44 03/23/17 08:24 50 MG Hydromorphone HCl (Dilaudid Inj) 0.5 mg Q3H PRN IV 03/21/17 06:45 04/04/17 06:44 Future Hold 03/21/17 13:36 0.5 MG Prochlorperazine Edisylate 5 mg/ Syringe 5 ml @ 5 mls/min Q6H PRN IV 03/21/17 06:45 04/20/17 06:44 Aspirin (Ecotrin Tab) 81 mg QAM PO 03/21/17 09:00 04/20/17 08:59 03/23/17 08:26 81 MG Carvedilol (Coreg Tab) 12.5 mg BID PO 03/21/17 21:00 04/20/17 20:59 03/23/17 08:26 12.5 MG Gabapentin (Neurontin Cap) 300 mg QID PO 03/21/17 09:00 04/20/17 08:59 03/23/17 08:28 300 MG Isosorbide Dinitrate (Isordil Tab) 20 mg TID@0700,1200,1700 PO 03/21/17 08:00 04/20/17 07:59 03/23/17 10:57 20 MG Pantoprazole Sodium (Protonix Tab) 40 mg QAM PO 03/21/17 09:00 04/20/17 08:59 03/23/17 08:28 40 MG Rosuvastatin Calcium (Crestor Tab) 40 mg HS PO 03/21/17 21:00 04/20/17 20:59 03/22/17 21:24 40 MG Enalapril Maleate (Vasotec Tab) 20 mg DAILY@1200 PO 03/21/17 12:00 04/20/17 11:59 Future hold 03/23/17 10:57 20 MG Morphine Sulfate (MoRPHine SULFATE INJ) 1 mg Q4 PRN IV 03/21/17 08:45 04/04/17 08:44 03/23/17 09:46 1 MG Nitroglycerin (Nitrostat Tab) 0.3 mg PRN PRN SL 03/21/17 08:45 04/20/17 08:44 Insulin Glargine (Lantus Solostar Pen) 30 units HS SC 03/22/17 21:00 04/20/17 20:59 03/22/17 21:25 30 UNITS Doxycycline Hyclate (Vibramycin Cap) 100 mg BID PO 03/22/17 13:00 03/29/17 12:59 03/23/17 08:25 100 MG Vital Signs: Date Time Temp Pulse Resp B/P (MAP) Pulse Ox O2 Delivery O2 Flow Rate FiO2 03/23/17 10:35 36.4 63 18 198/107 (137) 93 Room Air 202/112 (142) 03/23/17 07:26 72 164/87 (112) 03/23/17 07:25 72 176/77 (110) 03/23/17 07:25 36.9 73 18 148/71 (96) 91 Room Air 03/23/17 06:23 61 16 96 Room Air 03/23/17 05:22 Room Air 03/23/17 04:00 36.7 69 16 180/87 (118) 94 Room Air 03/23/17 04:00 Room Air 03/23/17 00:02 Room Air 03/22/17 23:28 36.9 74 19 169/90 (116) 94 Room Air 03/22/17 20:00 Room Air 03/22/17 19:37 36.8 64 21 163/77 (105) 94 Room Air 03/22/17 16:00 Room Air 03/22/17 15:33 36.5 60 22 166/88 (114) 96 Room Air Laboratory Results: Last 24 Hours Test 03/22/17 15:27 03/22/17 16:24 03/22/17 19:46 03/23/17 06:29 Erythrocyte Sedimentation Rate 17 mm/hr Bedside Glucose 127 mg/dl 189 mg/dl 196 mg/dl Test 03/23/17 06:49 03/23/17 10:54 Sodium Level 143 mmol/L Potassium Level 4.3 mmol/L Chloride Level 105 mmol/L Carbon Dioxide Level 33 mmol/L Anion Gap 5.0 mmol/L Blood Urea Nitrogen 35 mg/dl Creatinine 2.02 mg/dl Est Creatinine Clear Calc Drug Dose 44.3 ml/min Estimated GFR () 39.5 Estimated GFR (Non- 34.1 BUN/Creatinine Ratio 17.5 Random Glucose 176 mg/dl Estimated Average Glucose 203 mg/dl Hemoglobin A1c 8.7 % Calcium Level 8.7 mg/dl Bedside Glucose 152 mg/dl
[2017-03-23] MEDS: HydrALAZINE HCL 20 MG/ML VIAL IV. PRN ×2 (15:36→15:38)
[2017-03-23] MEDS ORDERED: AMLODIPINE BESYLATE 5 MG TAB PO ONE (15:45)
--- NOTE | 2017-03-23 16:30 | Discharge Summary ---
Discharge Summary Date of Service Mar 23, 2017. Discharge Summary Admission Date: Mar 21, 2017 at 05:55 Discharge Date: Mar 23, 2017 Discharge Disposition: Home Principal Diagnosis: CHEST PAIN NO EVIDENCE OF CORONARY SYNDROME Procedures: ECHO Left ventricular systolic function is moderately reduced. Ejection Fraction = 35-40%. Septal motion is consistent with conduction abnormality. Otherwise, moderate global hypokinesis. There is moderate concentric left ventricular hypertrophy. The aortic valve is moderately calcified. 2D imaging and doppler interrogation of the aortic valve are discordant. Moderate aortic stensosis is suspected. CT CHEST WITH OUT IV CONTRAST : IMPRESSION: 1. Cardiomegaly. Mild intralobular septal thickening is identified and suggests congestive failure. Clinical correlation will be required. 2. There are trace pleural effusions. 3. No airspace consolidation is seen typical for pneumonia. 4. Additional findings as above. LUNGS V/Q SCAN : IMPRESSION: Findings are considered low probability for pulmonary embolus. CHEST XRAY : IMPRESSION: Subtle patchy bibasilar opacities suggest atelectasis or pneumonitis. The above report was generated using voice recognition software. It may contain grammatical, syntax or spelling errors. Consultations: [facility]Y [facility] PULMONOLOGY -DR STEVE Medication Reconciliation Continued Medications: Albuterol (Ventolin Hfa) 60 Puffs/5400 Mcg Aers 2 PUFFS INH Q4H PRN for SOB/Wheezing Aspirin (Aspirin Ec) 81 Mg Tab 81 MG PO QAM Carvedilol (Carvedilol) 25 Mg Tab 12.5 MG PO BID Cholecalciferol (Vitamin D3) 2,000 Unit Tab 2000 INTER.UNIT PO QAM Enalapril Maleate (Enalapril Maleate) 20 Mg Tab 1 TAB PO NOON Furosemide (Lasix) 20 Mg Tab 20 MG PO 2XWK TU, THU Gabapentin (Neurontin) 300 Mg Cap 300 MG PO QID Insulin Aspart (Novolog Flexpen) 100 Units/Ml Inj 7 UNITS SQ QAM Insulin Aspart (Novolog Flexpen) 100 Units/Ml Inj 14 UNITS SQ UD with lunch and dinner Insulin Glargine (Lantus Solostar) 100 Unit/Ml Inj 45 UNITS SC HS, PEN Isosorbide Dinitrate (Isordil) 20 Mg Tab 20 MG PO TID, TAB Pantoprazole (Protonix) 40 Mg Tab 40 MG PO QAM Rosuvastatin Calcium (Crestor) 40 Mg Tab 40 MG PO HS, TAB Referrals At Discharge Follow up 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 CHIEF COMPLAINT: Chest pain, shortness of breath. HISTORY OF PRESENT ILLNESS: History obtained from patient and records. Medical history is significant for asthma as per records, hypertension, chronic systolic heart failure secondary to nonischemic cardiomyopathy, EF 40-44% from October 2016 echo, nonocclusive CAD, chronic left bundle branch block, moderate aortic valve stenosis, chronic anemia (baseline hemoglobin up to 13), chronic renal insufficiency (baseline creatinine of 1.9), DM2, insulin requiring, chronic thrombocytopenia as per records. Recent confinement June 2016 for chest pain. 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 Denies cough symptoms or fluid retention. No trauma. No unusual stress. Claims to be compliant with home medications. Spontaneous resolution at the Emergency Room. Initial systolic blood pressure in the ER 180s. Patient eventually had a cardiac catheterization June 2016 outpatient which showed nonobstructive CAD. nonischemic cardiomyopathy with low systolic function, mild aortic stenosis. Medical management for patient's cardiomyopathy recommended. A 2D echo from October 2016 showed concentric LV wall thickness, moderate diffuse LV hypokinesis, EF 44%, calcific aortic valve, moderate aortic valve stenosis. MEDICAL HISTORY: As above. SURGERIES: None. HOME MEDICATIONS: Include Neurontin, NovoLog, Lantus, Isordil, Protonix, Crestor, aspirin, Ventolin, vitamin D3, carvedilol, enalapril, Lasix. ALLERGIES: No known drug allergies. FAMILY HISTORY: There is a family history of heart disease. PERSONAL AND SOCIAL HISTORY: Nonsmoker, no chronic intake of alcoholic beverages. Currently disabled. REVIEW OF SYSTEMS: As per HPI. All 10 systems reviewed. All other ROS negative. Physical Exam (per Admitting): PHYSICAL EXAMINATION: VITAL SIGNS: Blood pressure was noted to be 181/100, later 150/70, pulse rate 68, RR 22, temperature 36.8, sats 89 on room air, later 98 on 2 liters. GENERAL: Noted to be anxious, obese, no respiratory distress. SKIN: Pallor, warm. HEENT: Alopecia. Pale palpebral conjunctiva. No ptosis. Dry buccal mucosa. NECK: Short neck. No tenderness. LUNGS: Decreased breath sounds. No tenderness. HEART: Regular rate and rhythm. Systolic murmur. ABDOMEN: Some distension, nontender. EXTREMITIES: Minimal LE edema, no tenderness. No gross deformities. NEUROLOGIC: Coherent. No gross focality. Hospital Course CHEST PAIN /TESFAYE : presented with pleuritic chest pain , TESFAYE no hypoxia chest pain improved today , has persisted SOB with exertion -new symptom at baseline pt is very active , no evidence of ACS, mild elevation in setting of PAM on CKD stage 3 -unlike to coronary plaque rupture had cardiac cath earlier this year for similar symptom -shows non obstructive coronaries Resting ECHO -unchanged form prior appreciate input form Cardiology had elevated D Dimer lower ext Doppler negative V/q scan low probability for PE pulmonology consult appreciated ordered for nocturnal pulse ox to R/o ARPIT recommend out pt PFT 2 step exercise tomorrow AM cxray shows mild basilar interstitial prominence CT chest no obvious infiltrate noted HX OF NON ISCHEMIC CARDIOMYOPATHY : cardiac cath on 07/02/16 non obstructive CAD with elevated Left Ventricular end diastolic pressure with chronic CHF systolic failure EF 30 % clinically appears to be euvolemic Enalapril on hold for PAM -elevated Cr APM ON CKD STAGE 3 Cr elevated 1.9-> 2 will hold ACEI avoid NSAID's /contrast repeat PRP nephrology consulted HTN: BP stable cont out pt meds -Hydralazine, Isordil Enalapril on hold due to above TYPE 2 DM : cont Lantus insulin SSI FULL CODE DVT PROPHYLAXIS sub q heparin DISPOSITION expected to be discharged home when medically stable Pt/OT eval prior to discharge medicine follow up with Dr Harley Mccabe Total time spent on discharge = 40 MINS This includes examination of the patient, discharge planning, medication reconciliation, and communication with other providers. Discharge Instructions Discharge Instructions Date of Service Mar 23, 2017. Admission Reason for Admission: Respiratory Failure,Acute Discharge Discharge Diagnosis / Problem: CHEST PAIN NO EVIDENCE OF CORONARY SYNDROME Discharge Goals Goal(s): Decrease discomfort, Increase independence, Improve disease control, Diagnostic testing, Therapeutic intervention Activity Recommendations Activity Limitations: resume your previous activity . Instructions / Follow-Up Instructions / Follow-Up HOSPITAL FOLLOW UP : 03/25/2017 9:40 AM Leopoldo Hernandez MD Internal Medicine [facility] PULMONOLOGY FOLLOW UP WITH DR STEVE IN 1-2 WEEKS WILL NEED OUT PATIENT SLEEP STUDY AND PULMONARY FUNCTION TEST PLEASE CALL OFFICE FOR APPOINTMENT YOUR OXYGEN LEVEL DROPS AT NIGHT WHILE YOU SLEEP PLEASE WEAR OXYGEN 2 L AT NIGHT -WILL IMPROVE YOUR SHORTNESS OF BREATH , TIREDNESS AND FATIGUE Current Hospital Diet Patient's current hospital diet: AHA Diet (Heart Healthy), Diabetes Type 2 Diet Discharge Diet Recommended Diet: AHA Diet (Heart Healthy), Diabetes Type 2 Diet Pending Studies Studies pending at discharge: no Laboratory Results Hemoglobin A1c Test 03/23/17 06:49 Range/Units Estimated Average Glucose 203 mg/dl Hemoglobin A1c 8.7 H 4.5-5.6 % Medical Emergencies . Who to Call and When: Medical Emergencies: If at any time you feel your situation is an emergency, please call 911 immediately. . Non-Emergent Contact Non-Emergency issues call your: Primary Care Provider . . "Provider Documentation" section prepared by Bell Kay. . VTE Core Measure Inpt VTE Proph given/why not?: Unfractionated heparin SQ Additional Copies To Leopoldo Hernandez M.D. Cable, Joseph A., DO
[2017-03-23] MEDS ORDERED: LORAZEPAM 0.5 MG TAB PO STA (17:09)
--- NOTE | 2017-03-23 17:24 | Progress Note ---
Progress Note Date of Service Mar 23, 2017. Progress Note pt remains hypertensive , developed SOB while standing up feels better while on 2 L 02 persistent generalized weakness hany -been out in [place] last few weeks does not remember having tick bite Lyme titer ordered cancel discharge home today ordered for 2 L 02 via NC at night cont to monitor BP and titrate meds if needed d/w and pt , agreeable with the plan
--- NOTE | 2017-03-23 17:33 | Cardiology Follow-Up ---
Subjective General Date of Service: Mar 23, 2017. Pt evaluation today including: conversation w/ patient, conversation w/ family , physical exam, chart review, lab review, review of studies, review of inpatient medication list History of Present Illness The patient is a 62 year old male seen in follow up. Denies CP today. SOB improved. No sustained dysrhythmia on telemetry. present at bedside. Allergies Coded Allergies: No Known Allergies (Verified , 03/21/17) Social History Smoking Status: Never Smoker Hx Tobacco Use In Past Year?: Yes (Chew) Hx Alcohol Use - Type And Amou: No Hx Substance Use - Type And Am: No Problem List Medical Problems: (1) Diffuse abdominal pain Status: Acute (2) Dyspnea Status: Acute (3) Elevated troponin Status: Acute (4) Precordial chest pain Status: Acute (5) Renal cyst Status: Acute (6) Shortness of breath Status: Acute Review of Systems Respiratory: + dyspnea on exertion, No cough, No sputum, No wheezing, No shortness of breath, No dyspnea at rest, No hemoptysis Cardiac: No chest pain, No orthopnea, No PND, No edema, No claudication, No palpitations Physical Exam Vital Signs Last Vital Signs Documentation Date Time Temp Pulse Resp B/P (MAP) Pulse Ox O2 Delivery O2 Flow Rate FiO2 03/23/17 16:35 65 191/101 (131) 66 185/93 (123) 03/23/17 15:02 36.5 20 94 Room Air 03/22/17 07:54 1.0 Physical Exam Constitutional: General Apperance: heathly-appearing Level of Distress: NAD Head: normocephalic Neck: supple, trachea midline Lungs: Auscultation: breath sounds normal, no wheezing, no rales/crackles, no rhonchi Cardiovascular: Heart Auscultation: RRR, normal S1, normal S2, II/ KACIE Peripheral Pulses: Radial Pulse: normal on the left, normal on the right Abdomen: Bowel Sounds: normal Inspection & Palpation: soft, non-distended, no tenderness, guarding & rebound Extremities: no cyanosis, no edema, no clubbing, no ulcers Neurologic: Gait & Station: pertinent finding (No focal motor deficit.) Cranial Nerves: grossly intact Assessment and Plan Assessment and Plan FINAL IMPRESSION: 1. Atypical chest discomfort. 2. Uncontrolled HTN with hypertensive heart disease. 3. Nonischemic cardiomyopathy with moderate left ventricular hypertrophy 4. Chronic left bundle branch block. 5. Mild to moderate aortic stenosis. 6. Chronic kidney disease with superimposed acute kidney injury. PLAN AND RECOMMENDATIONS: Add amlodipine 5mg daily. Continue other cardiovascular medications as previously ordered. Nephrology and pulmonary input appreciated. Follow up on SPEP result. Laboratory Results Last 24 Hours Test 03/22/17 19:46 03/23/17 06:29 03/23/17 06:49 03/23/17 10:54 Bedside Glucose 189 mg/dl 196 mg/dl 152 mg/dl Sodium Level 143 mmol/L Potassium Level 4.3 mmol/L Chloride Level 105 mmol/L Carbon Dioxide Level 33 mmol/L Anion Gap 5.0 mmol/L Blood Urea Nitrogen 35 mg/dl Creatinine 2.02 mg/dl Est Creatinine Clear Calc Drug Dose 44.3 ml/min Estimated GFR () 39.5 Estimated GFR (Non- 34.1 BUN/Creatinine Ratio 17.5 Random Glucose 176 mg/dl Estimated Average Glucose 203 mg/dl Hemoglobin A1c 8.7 % Calcium Level 8.7 mg/dl Hepatitis C Antibody Screen NEG Test 03/23/17 15:57 03/23/17 17:16 Bedside Glucose 126 mg/dl
[2017-03-23 19:07] LABS: LYME DISEASE AB IGG NEG (NEG); LYME DISEASE AB IGM NEG (NEG)
[2017-03-23] MEDS: ROSUVASTATIN CALCIUM 20 MG TAB PO SCH (21:02)
[2017-03-23] MEDS: INSULIN GLARGINE SOLOSTAR 100 UNITS/ML 3 ML PEN SC SCH (21:06)
--- NOTE | 2017-03-23 21:28 | Progress Note ---
Internal Med Progress Note Date of Service: Mar 23, 2017. Provider Documentation: SUBJECTIVE: felt fine this AM had 2 step exercise no desaturation noted no indication for home 02 nocturnal pulse oximetry shows episodes of desaturation will benefit with night time 02 pt's mentions that -pt snores loudly then period apnea , not breathing will need out pt sleep study and possible CPAP OBJECTIVE: Vital Signs-as noted below Exam: General-no sign of distress, well appearing male , very pleasant , conversing Eyes-sclera non icteric, PERRLA/EOMI ENT-normal oropharynx Neck-no thyromegaly , trachea midline Lungs-no rales or wheeze notes, normal air entry Heart-regular S1/S2 Abdomen-soft ,non tender Extremities-no lower ext edema, no rash or deformity Neuro-AAO x3, no focal deficit Lab data as noted below. ASSESSMENT & PLAN: CHEST PAIN /TESFAYE : symptom has improved no evidence of ACS, mild elevation in setting of PAM on CKD stage 3 -unlike to coronary plaque rupture had cardiac cath earlier this year for similar symptom -shows non obstructive coronaries Resting ECHO -unchanged form prior appreciate input form Cardiology had elevated D Dimer lower ext Doppler negative V/q scan low probability for PE pulmonology consult appreciated nocturnal pulse ox shows hypoxia -need 02 at night arrangements made for home 02 HS follow up with Pulmonology as out pt will need PFT and sleep study HYPERTENSIVE URGENCY -pt was planned to discharge home today found to be hypertensive in evening , no improvement with addition of extra dose of Norvasc developed SOB /TESFAYE given evening dose of Isordil early PRN Hydralazine added cancel discharge home will need to be monitored overnight may need titration of BP Meds HX OF NON ISCHEMIC CARDIOMYOPATHY : cardiac cath on 07/02/16 non obstructive CAD with elevated Left Ventricular end diastolic pressure with chronic CHF systolic failure EF 30 % clinically appears to be euvolemic PAM ON CKD STAGE 3 Cr at approx baseline resumed ACEI avoid NSAID's /contrast repeat PRP nephrology consulted -appreciate input TYPE 2 DM : cont Lantus insulin SSI FULL CODE DVT PROPHYLAXIS sub q heparin DISPOSITION hold D/c home today due to uncontrolled HTN monitor in tele medicine follow up with Dr Harley Mccabe updated at bedside Vital Signs: Date Time Temp Pulse Resp B/P (MAP) Pulse Ox O2 Delivery O2 Flow Rate FiO2 03/23/17 20:00 36.7 68 20 170/93 (118) 100 Nasal Cannula 3.0 03/23/17 18:45 36.5 66 174/96 (122) 95 Room Air 66 03/23/17 16:35 65 191/101 (131) 66 185/93 (123) 03/23/17 16:00 Room Air 03/23/17 15:02 36.5 67 20 172/94 (120) 94 Room Air 03/23/17 12:00 Room Air 03/23/17 10:35 36.4 63 18 198/107 (137) 93 Room Air 202/112 (142) 03/23/17 08:00 91 Room Air 03/23/17 07:26 72 164/87 (112) 03/23/17 07:25 72 176/77 (110) 03/23/17 07:25 36.9 73 18 148/71 (96) 91 Room Air 03/23/17 06:23 61 16 96 Room Air 03/23/17 05:22 Room Air 03/23/17 04:00 36.7 69 16 180/87 (118) 94 Room Air 03/23/17 04:00 Room Air 03/23/17 00:02 Room Air 03/22/17 23:28 36.9 74 19 169/90 (116) 94 Room Air Lab Results: Results Past 24 Hours Test 03/23/17 06:29 03/23/17 06:49 03/23/17 10:54 03/23/17 15:57 Range/Units Bedside Glucose 196 152 126 70-99 mg/dl Sodium Level 143 136-145 mmol/L Potassium Level 4.3 3.5-5.1 mmol/L Chloride Level 105 98-107 mmol/L Carbon Dioxide Level 33 21-32 mmol/L Anion Gap 5.0 3-11 mmol/L Blood Urea Nitrogen 35 7-18 mg/dl Creatinine 2.02 0.60-1.40 mg/dl Est Creatinine Clear Calc Drug Dose 44.3 ml/min Estimated GFR () 39.5 Estimated GFR (Non- 34.1 BUN/Creatinine Ratio 17.5 10-20 Random Glucose 176 70-99 mg/dl Estimated Average Glucose 203 mg/dl Hemoglobin A1c 8.7 4.5-5.6 % Calcium Level 8.7 8.5-10.1 mg/dl Hepatitis C Antibody Screen NEG NEG Test 03/23/17 17:34 03/23/17 20:08 Range/Units Lyme Disease IgG Antibody NEG NEG Lyme Disease IgM Antibody NEG NEG Bedside Glucose 139 70-99 mg/dl
--- NOTE | 2017-03-23 21:32 | Progress Note ---
Progress Note Date of Service Mar 23, 2017. Progress Note ADDENDUM : BP Remains persistently elevated increased Norvasc dose to 10 in AM Isordil increased to 30 mg TID ( was on 20 mg TID )
[2017-03-23] MEDS ORDERED: HydrALAZINE HCL 20 MG/ML VIAL IV. PRN (21:45)
[2017-03-24 03:56] VITALS: BP 117/57; PULSE 60; TEMP 37.1; O2SAT 98
[2017-03-24 07:00] VITALS: BP 146/78; PULSE 64; TEMP 37; O2SAT 99
[2017-03-24] MEDS: INSULIN ASPART 100 UNITS/ML 3 ML PEN SC SCH ×2 (07:00→11:48)
[2017-03-24] MEDS: ISOSORBIDE DINITRATE 20 MG TAB PO SCH ×2 (07:59→11:43)
[2017-03-24 08:00] VITALS: O2SAT 99
[2017-03-24] MEDS: CARVEDILOL 12.5 MG TAB PO SCH (08:01)
[2017-03-24] MEDS: GABAPENTIN 300 MG CAP PO SCH ×2 (08:02→11:44)
[2017-03-24] MEDS: ASPIRIN 81 MG ECTAB PO SCH (08:02)
[2017-03-24] MEDS: PANTOprazole SOD 40 MG TAB PO SCH (08:03)
[2017-03-24 08:16] LABS: BUN/CREATININE RATIO 16.5 (10-20); CALCIUM 8.6 mg/dl (8.5-10.1); CREATININE 1.99 mg/dl (0.60-1.40)
[2017-03-24] MEDS ORDERED: AMLODIPINE BESYLATE 5 MG TAB PO SCH ×2 (09:00)
[2017-03-24] MEDS ORDERED: NRV5 PO ×3 (10:25→12:10)
--- NOTE | 2017-03-24 10:37 | Clinical Documentation Query ---
Dr. [facility] : CLINICAL DOCUMENTATION QUERY Patient is a 62 year old male admitted admitted for chest pain and SOB. Initial SBP in the ED in the 180's. Chest pain determined to be unrelated to PE, ACS. Resting echocardiogram unchanged. Discharge canceled secondary to ongoing uncontrolled hypertension. As appropriate, consider documentation of the etiology of chest pain as suggested below as all differential etiologies were ruled out. In your clinical opinion is this patient being managed for: ( ) Chest pain secondary to hypertensive crisis, POA ( ) Not Agree ( ) Other explanation of clinical findings (Please Explain) ( ) Unable to determine (Please Define) ( ) Need to Discuss The medical record reflects the following clinical findings, treatment, and risk factors. Clinical Indicators: CP, SOB. Ruled out ACS, thromboembolic event. Quite hypertensive on admission Treatment: Amlodipine, Isordil, Hydralazine, Coreg, Vasotec, Risk Factors: Age, obesity Please clarify and document your clinical opinion in the progress notes and discharge summary. Terms such as "probable", "suspected", "likely", "questionable", "possible", or "still to be ruled out" are acceptable. IF IN AGREEMENT, YOU MUST DOCUMENT ABOVE DIAGNOSTIC STATEMENT IN DAILY PROGRESS NOTES AND DISCHARGE SUMMARY. This document is not part of the patient's record. Thank You, Augustin Mireles RN [phone]
[2017-03-24] MEDS: ENALAPRIL MALEATE 10 MG TAB PO SCH (11:43)
[2017-03-24 12:00] VITALS: BP 134/81; PULSE 61; TEMP 36.6; O2SAT 94
--- NOTE | 2017-03-24 12:15 | Discharge Instructions ---
Discharge Instructions Date of Service Mar 24, 2017. Admission Reason for Admission: Respiratory Failure,Acute Discharge Discharge Diagnosis / Problem: chest pain, sob, PAM Discharge Goals Goal(s): Decrease discomfort, Improve function Activity Recommendations Activity Limitations: resume your previous activity ( TOLERATED) . Instructions / Follow-Up Instructions / Follow-Up HOSPITAL FOLLOW UP : 03/25/2017 9:40 AM Leopoldo Hernandez MD Internal Medicine [facility] PULMONOLOGY FOLLOW UP WITH DR STEVE IN 1-2 WEEKS WILL NEED OUT PATIENT SLEEP STUDY WITH FAMILY DOCTOR REFERRAL YOUR OXYGEN LEVEL DROPS AT NIGHT WHILE YOU SLEEP PLEASE WEAR OXYGEN 2 L AT NIGHT -WILL IMPROVE YOUR SHORTNESS OF BREATH , TIREDNESS AND FATIGUE. NEW MEDICATION ADDED FOR BLOOD PRESSURE CONTROL: AMLODIPINE (NORVASC) 10MG PO DAILY. FOLLOWUP BLOOD PRESSURE WITH FAMILY DOCTOR AND NEPHROLOGY Current Hospital Diet Patient's current hospital diet: AHA Diet (Heart Healthy), Diabetes Type 2 Diet Discharge Diet Recommended Diet: AHA Diet (Heart Healthy), Diabetes Type 2 Diet Pending Studies Studies pending at discharge: no Laboratory Results Hemoglobin A1c Test 03/23/17 06:49 Range/Units Estimated Average Glucose 203 mg/dl Hemoglobin A1c 8.7 H 4.5-5.6 % Medical Emergencies . Who to Call and When: Medical Emergencies: If at any time you feel your situation is an emergency, please call 911 immediately. . Non-Emergent Contact Non-Emergency issues call your: Primary Care Provider . . "Provider Documentation" section prepared by Yovanny Desai. . VTE Core Measure Inpt VTE Proph given/why not?: Unfractionated heparin SQ
[2017-03-24] MEDS ORDERED: AMLO-114 PO ×2 (12:17)
[2017-03-24 12:26] VITALS: BP 134/81; PULSE 61; TEMP 36.6; O2SAT 94
[2017-03-24 15:18] LABS: GAMMA GLOBULIN 0.5 G/DL (0.8-1.7); TOTAL PROTEIN 5.3 G/DL (6.2-8.3)
--- NOTE | 2017-03-24 17:56 | Progress Note ---
Internal Med Progress Note Date of Service: Mar 24, 2017. Provider Documentation: SUBJECTIVE: denies any chest pain or sob ambulating fine afebrile ok for discharge OBJECTIVE: Vital Signs-as noted below Exam: General-alert and awake and oriented ENT-normal hearing Neck-no neck masses Lungs-cta b/l no wheezing or crackles Heart-s1 and s2 heard regular rate and rhythm no murmurs Abdomen-soft BS present non tender Extremities-trace pedal edema present no erythema Neuro-alert and awake moves extremities Lab data as noted below. ASSESSMENT & PLAN: CHEST PAIN /TESFAYE : symptom has improved mild elevation in setting of PAM on CKD stage 3 -unlike to coronary plaque rupture s/p cardiac cath earlier this year for similar symptom -shows non obstructive coronaries Resting ECHO -no change form previous had elevated D Dimer lower ext Doppler negative V/q scan low probability for PE nocturnal pulse ox shows hypoxia -need 02 at night arrangements made for home 02 HS appreciate cardiology and pulmonary inputs follow up with Pulmonology as out pt will need PFT and sleep study HYPERTENSIVE URGENCY elevated in hospital to continue home meds added Norvasc 10mg daily at discharge close followup with pcp HX OF NON ISCHEMIC CARDIOMYOPATHY : cardiac cath on 07/02/16 non obstructive CAD with elevated Left Ventricular end diastolic pressure with chronic CHF systolic failure EF 30 % clinically appears to be euvolemic stable PAM ON CKD STAGE 3 Cr at approx baseline resumed ACEI avoid NSAID's /contrast cr 1.99 at discharge f/u with nephrology TYPE 2 DM : d/c on home insulin regimen FULL CODE DVT PROPHYLAXIS sub q heparin DISPOSITION discharged home today Vital Signs: Date Time Temp Pulse Resp B/P (MAP) Pulse Ox O2 Delivery O2 Flow Rate FiO2 03/24/17 12:26 36.6 61 18 94 Room Air 03/24/17 12:00 36.6 61 18 134/81 (98) 94 03/24/17 12:00 Room Air 03/24/17 08:00 99 Room Air 03/24/17 07:00 37.0 64 20 146/78 (100) 99 Nasal Cannula 3.0 03/24/17 04:00 Room Air 03/24/17 03:56 37.1 60 19 117/57 (77) 98 Nasal Cannula 3.0 03/24/17 00:05 Room Air 03/23/17 20:00 36.7 68 20 170/93 (118) 100 Nasal Cannula 3.0 03/23/17 20:00 Room Air 03/23/17 18:45 36.5 66 174/96 (122) 95 Room Air 66 Lab Results: Results Past 24 Hours Test 03/23/17 20:08 03/24/17 06:32 03/24/17 06:51 03/24/17 07:14 Range/Units Bedside Glucose 139 67 91 70-99 mg/dl Sodium Level 140 136-145 mmol/L Potassium Level 4.0 3.5-5.1 mmol/L Chloride Level 105 98-107 mmol/L Carbon Dioxide Level 28 21-32 mmol/L Anion Gap 7.0 3-11 mmol/L Blood Urea Nitrogen 33 7-18 mg/dl Creatinine 1.99 0.60-1.40 mg/dl Est Creatinine Clear Calc Drug Dose 45.0 ml/min Estimated GFR () 40.2 Estimated GFR (Non- 34.7 BUN/Creatinine Ratio 16.5 10-20 Random Glucose 107 70-99 mg/dl Calcium Level 8.6 8.5-10.1 mg/dl Test 03/24/17 11:37 Range/Units Bedside Glucose 163 70-99 mg/dl
--- NOTE | 2017-03-24 18:17 | Discharge Summary ---
Discharge Summary Date of Service Mar 24, 2017. Discharge Summary Admission Date: Mar 21, 2017 at 05:55 Discharge Date: Mar 24, 2017 Discharge Disposition: Home Principal Diagnosis: CHEST PAIN SOB HYPERTENSIVE URGENCY Secondary Diagnoses/Problems: asthma as per records, hypertension, chronic systolic heart failure secondary to nonischemic cardiomyopathy, EF 40-44% from October 2016 echo, nonocclusive CAD, chronic left bundle branch block, moderate aortic valve stenosis, chronic anemia (baseline hemoglobin up to 13), chronic renal insufficiency (baseline creatinine of 1.9), DM2, insulin requiring, chronic thrombocytopenia Procedures: ECHO Left ventricular systolic function is moderately reduced. Ejection Fraction = 35-40%. Septal motion is consistent with conduction abnormality. Otherwise, moderate global hypokinesis. There is moderate concentric left ventricular hypertrophy. The aortic valve is moderately calcified. 2D imaging and doppler interrogation of the aortic valve are discordant. Moderate aortic stensosis is suspected. CT CHEST WITH OUT IV CONTRAST : IMPRESSION: 1. Cardiomegaly. Mild intralobular septal thickening is identified and suggests congestive failure. Clinical correlation will be required. 2. There are trace pleural effusions. 3. No airspace consolidation is seen typical for pneumonia. 4. Additional findings as above. LUNGS V/Q SCAN : IMPRESSION: Findings are considered low probability for pulmonary embolus. CHEST XRAY : IMPRESSION: Subtle patchy bibasilar opacities suggest atelectasis or pneumonitis. The above report was generated using voice recognition software. It may contain grammatical, syntax or spelling errors. B/L LOWER EXTREMITY DOPPLER: No sonographic evidence of deep venous thrombosis within the right or left lower extremity. Consultations: [facility] -[facility] STEVE Medication Reconciliation New Medications: Amlodipine (Norvasc) 10 Mg Tab 10 MG PO DAILY for 30 Days, #30 TAB 2 Refills Continued Medications: Albuterol (Ventolin Hfa) 60 Puffs/5400 Mcg Aers 2 PUFFS INH Q4H PRN for SOB/Wheezing Aspirin (Aspirin Ec) 81 Mg Tab 81 MG PO QAM Carvedilol (Carvedilol) 25 Mg Tab 12.5 MG PO BID Cholecalciferol (Vitamin D3) 2,000 Unit Tab 2000 INTER.UNIT PO QAM Enalapril Maleate (Enalapril Maleate) 20 Mg Tab 1 TAB PO NOON Furosemide (Lasix) 20 Mg Tab 20 MG PO 2XWK , THU Gabapentin (Neurontin) 300 Mg Cap 300 MG PO QID Insulin Aspart (Novolog Flexpen) 100 Units/Ml Inj 7 UNITS SQ QAM Insulin Aspart (Novolog Flexpen) 100 Units/Ml Inj 14 UNITS SQ UD with lunch and dinner Insulin Glargine (Lantus Solostar) 100 Unit/Ml Inj 45 UNITS SC HS, PEN Isosorbide Dinitrate (Isordil) 20 Mg Tab 20 MG PO TID, TAB Pantoprazole (Protonix) 40 Mg Tab 40 MG PO QAM Rosuvastatin Calcium (Crestor) 40 Mg Tab 40 MG PO HS, TAB Admission Information HPI (per Admitting provider): DATE OF ADMISSION: 03/21/2017 PRIMARY CARE PHYSICIAN: Mabel Butts MD. CHIEF COMPLAINT: Chest pain, shortness of breath. HISTORY OF PRESENT ILLNESS: History obtained from patient and records. Medical history is significant for asthma as per records, hypertension, chronic systolic heart failure secondary to nonischemic cardiomyopathy, EF 40-44% from October 2016 echo, nonocclusive CAD, chronic left bundle branch block, moderate aortic valve stenosis, chronic anemia (baseline hemoglobin up to 13), chronic renal insufficiency (baseline creatinine of 1.9), DM2, insulin requiring, chronic thrombocytopenia as per records. Recent confinement June 2016 for chest pain. hose wrapper, patient woke up with left-sided chest discomfort, pleuritic with some shortness of breath. Denies cough symptoms or fluid retention. No trauma. No unusual stress. Claims to be compliant with home medications. Spontaneous resolution at the Emergency Room. Initial systolic blood pressure in the ER 180s. Patient eventually had a cardiac catheterization June 2016 outpatient which showed nonobstructive CAD. nonischemic cardiomyopathy with low systolic function, mild aortic stenosis. Medical management for patient's cardiomyopathy recommended. A 2D echo from October 2016 showed concentric LV wall thickness, moderate diffuse LV hypokinesis, EF 44%, calcific aortic valve, moderate aortic valve stenosis. MEDICAL HISTORY: As above. SURGERIES: None. HOME MEDICATIONS: Include Neurontin, NovoLog, Lantus, Isordil, Protonix, Crestor, aspirin, Ventolin, vitamin D3, carvedilol, enalapril, Lasix. ALLERGIES: No known drug allergies. FAMILY HISTORY: There is a family history of heart disease. PERSONAL AND SOCIAL HISTORY: Nonsmoker, no chronic intake of alcoholic beverages. Currently disabled. REVIEW OF SYSTEMS: As per HPI. All 10 systems reviewed. All other ROS negative. Physical Exam (per Admitting): PHYSICAL EXAMINATION: VITAL SIGNS: Blood pressure was noted to be 181/100, later 150/70, pulse rate 68, RR 22, temperature 36.8, sats 89 on room air, later 98 on 2 liters. GENERAL: Noted to be anxious, obese, no respiratory distress. SKIN: Pallor, warm. HEENT: Alopecia. Pale palpebral conjunctiva. No ptosis. Dry buccal mucosa. NECK: Short neck. No tenderness. LUNGS: Decreased breath sounds. No tenderness. HEART: Regular rate and rhythm. Systolic murmur. ABDOMEN: Some distension, nontender. EXTREMITIES: Minimal LE edema, no tenderness. No gross deformities. NEUROLOGIC: Coherent. No gross focality. Hospital Course CHEST PAIN /TESFAYE : symptom has improved mild elevation in setting of PAM on CKD stage 3 -unlike to coronary plaque rupture s/p cardiac cath earlier this year for similar symptom -shows non obstructive coronaries Resting ECHO -no change form previous had elevated D Dimer lower ext Doppler negative V/q scan low probability for PE nocturnal pulse ox shows hypoxia -need 02 at night arrangements made for home 02 HS appreciate cardiology and pulmonary inputs follow up with Pulmonology as out pt will need PFT and sleep study HYPERTENSIVE URGENCY elevated in hospital to continue home meds added Norvasc 10mg daily at discharge close followup with pcp HX OF NON ISCHEMIC CARDIOMYOPATHY : cardiac cath on 07/02/16 non obstructive CAD with elevated Left Ventricular end diastolic pressure with chronic CHF systolic failure EF 30 % clinically appears to be euvolemic stable PAM ON CKD STAGE 3 Cr at approx baseline resumed ACEI avoid NSAID's /contrast cr 1.99 at discharge f/u with nephrology TYPE 2 DM : d/c on home insulin regimen FULL CODE DVT PROPHYLAXIS sub q heparin DISPOSITION discharged home today Total time spent on discharge = 35MINUTES This includes examination of the patient, discharge planning, medication reconciliation, and communication with other providers. Discharge Instructions Discharge Instructions Date of Service Mar 24, 2017. Admission Reason for Admission: Respiratory Failure,Acute Discharge Discharge Diagnosis / Problem: chest pain, sob, PAM Discharge Goals Goal(s): Decrease discomfort, Improve function Activity Recommendations Activity Limitations: resume your previous activity ( TOLERATED) . Instructions / Follow-Up Instructions / Follow-Up HOSPITAL FOLLOW UP : 03/25/2017 9:40 AM Leopoldo Hernandez MD Internal Medicine [facility] PULMONOLOGY FOLLOW UP WITH DR STEVE IN 1-2 WEEKS WILL NEED OUT PATIENT SLEEP STUDY WITH FAMILY DOCTOR REFERRAL YOUR OXYGEN LEVEL DROPS AT NIGHT WHILE YOU SLEEP PLEASE WEAR OXYGEN 2 L AT NIGHT -WILL IMPROVE YOUR SHORTNESS OF BREATH , TIREDNESS AND FATIGUE. NEW MEDICATION ADDED FOR BLOOD PRESSURE CONTROL: AMLODIPINE (NORVASC) 10MG PO DAILY. FOLLOWUP BLOOD PRESSURE WITH FAMILY DOCTOR AND NEPHROLOGY Current Hospital Diet Patient's current hospital diet: AHA Diet (Heart Healthy), Diabetes Type 2 Diet Discharge Diet Recommended Diet: AHA Diet (Heart Healthy), Diabetes Type 2 Diet Pending Studies Studies pending at discharge: no Laboratory Results Hemoglobin A1c Test 03/23/17 06:49 Range/Units Estimated Average Glucose 203 mg/dl Hemoglobin A1c 8.7 H 4.5-5.6 % Medical Emergencies . Who to Call and When: Medical Emergencies: If at any time you feel your situation is an emergency, please call 911 immediately. . Non-Emergent Contact Non-Emergency issues call your: Primary Care Provider . . "Provider Documentation" section prepared by Yovanny Desai. . VTE Core Measure Inpt VTE Proph given/why not?: Unfractionated heparin SQ
--- NOTE | 2017-03-25 08:51 | PULMONARY FUNCTION TEST ---
CLINICAL DATA: A 62-year-old male with a height of 68 inches and a weight of 234 pounds, referred by Dr. Vazquez and Dr. Butts for evaluation of shortness of breath and tightness in the chest. Spirometry pre- and post-bronchodilator was performed. FINDINGS: Pre-bronchodilator demonstrates very mild small airway obstruction. FVC was 102% of predicted. FEV1 was 99% of predicted. APF04-05 was slightly reduced at 78% predicted. There was no significant improvement after inhaled bronchodilator. IMPRESSION: Very mild obstructive small airways disease with no significant improvement after inhaled bronchodilator. MTDD
== END 2017-03-24 13:17 | disposition home or self-care (01) | DRG 305 ==
LOC: EDBD 04:27 → C.EDA 04:30 → C.2T 05:55 → ENRESERV 06:10
PROVIDERS: ADMIT Internal Medicine; ATTEND Internal Medicine
DX: I16.9 Hypertensive crisis, unspecified (principal); N17.9 Acute kidney failure, unspecified; J45.909 Unspecified asthma, uncomplicated; I25.10 Atherosclerotic heart disease of native coronary artery without angina pectoris; N18.3 Chronic kidney disease, stage 3 (moderate); E11.9 Type 2 diabetes mellitus without complications; I12.9 Hypertensive chronic kidney disease with stage 1 through stage 4 chronic kidney disease, or unspecified chronic kidney disease; E78.5 Hyperlipidemia, unspecified; I44.7 Left bundle-branch block, unspecified; Z79.4 Long term (current) use of insulin; Z79.82 Long term (current) use of aspirin; Z83.3 Family history of diabetes mellitus; Z82.49 Family history of ischemic heart disease and other diseases of the circulatory system

== ENCOUNTER 2017-04-17 23:05 | Emergency (ER) | payer BC ==
[~2017-04-17] VITALS: Ht 172.7 cm; Wt 114.2 kg
[~2017-04-17 23:05] MED LIST changes: +AMLO10TA3 PO; -ASPI81TA28 PO; -CHOL20007 PO; -CRG25 PO; -NVLGI/PEN SQ; -NVLGIPEN SQ; -OXYC-57 PO; -PANT40TA PO; -PRVHFAIN INH; -ROSU40TA PO
[2017-04-17] MEDS ORDERED: ALBUT/IPRATROP 3MG/0.5MG NEB 3 ML VIAL INH STA (23:17)
[2017-04-17 23:33] VITALS: TEMP 36.9; O2SAT 91; Ht 172.7 cm; Wt 114.2 kg
[2017-04-17 23:36] LABS: BASO % 0.5 %; BASO ABS # 0.03 K/uL (0-0.2); EOS % 2.8 %; EOS ABS # 0.18 K/uL (0-0.5); HEMATOCRIT 38.5 % (42-52); HEMOGLOBIN 13.1 g/dL (14.0-18.0); IG# 0.01 K/uL (0.00-0.02); LYMPH % 14.8 %; LYMPH ABS # 0.94 K/uL (1.2-3.4); MEAN CORPUSCULAR HEMOGLOBIN 28.2 pg (25-34); MEAN PLATELET VOLUME 9.4 fL (7.4-10.4); MONO ABS # 0.57 K/uL (0.11-0.59); NEUT % 72.7 %; NEUT ABS # 4.63 K/uL (1.4-6.5); PLATELET COUNT 124 K/uL (130-400); RED CELL DISTRIBUTION WIDTH CV 12.8 % (11.5-14.5); RED CELL DISTRIBUTION WIDTH SD 38.4 fL (36.4-46.3); WHITE BLOOD COUNT 6.36 K/uL (4.8-10.8)
[2017-04-17 23:49] LABS: PTT PATIENT 24.6 SECONDS (21.0-31.0)
[2017-04-17 23:53] LABS: ALBUMIN 3.2 gm/dl (3.4-5.0); CALCIUM 8.8 mg/dl (8.5-10.1); CREATININE 1.79 mg/dl (0.60-1.40); POTASSIUM 4.2 mmol/L (3.5-5.1)
[2017-04-17 23:59] LABS: CKMB 4.8 ng/ml (0.5-3.6); TOTAL PROTEIN 6.6 gm/dl (6.4-8.2)
[2017-04-18] MEDS ORDERED: PRED20TA PO (01:28)
--- NOTE | 2017-04-18 01:29 | EMERGENCY ROOM VISIT NOTE ---
History Report prepared by Felipe: Ninfa Miranda Under the Supervision of: Dr. Winston Mitchell D.O. First contact with patient: 23:09 Chief Complaint: RESPIRATORY DISTRESS Stated Complaint: RESPIRATORY DIFFICULTY History of Present Illness The patient is a 62 year old male who presents to the Emergency Room with complaints of persistent SOB starting TRACK RIDER. The patient presents to the ED by EMS. He has a history of respiratory problems which is thought to be either CHF or COPD. He has oxygen as home for use as needed. When he started feeling SOB, he tried his inhaler to no relief. He denies any leg swelling. He denies any history of smoking, but did work in the [employer]. Source of History: patient, EMS Onset: TRACK RIDER Position: other (global) Quality: other (SOB) Timing: other (persistent) Note: Pt denies leg swelling. Review of Systems See HPI for pertinent positives & negatives. A total of 10 systems reviewed and were otherwise negative. Past Medical & Surgical Medical Problems: (1) Asthma (2) CAD (coronary artery disease) (3) Chest pain (4) CKD (chronic kidney disease), stage III (5) DM type 2 (diabetes mellitus, type 2) (6) Dyslipidemia (7) Hypertension (8) LBBB (left bundle branch block) (9) Mild aortic stenosis (10) Nonischemic cardiomyopathy (11) Respiratory failure, acute Surgical Problems: (1) H/O cardiac catheterization (2) S/p adrenal gland surgery Family History Diabetes mellitus SISTER BROTHER FH: CHF (congestive heart failure) MOTHER Hypertension SON Social History Smoking Status: Never Smoker Drug Use: none Marital Status: Housing Status: lives with significant other Occupation Status: retired Current/Historical Medications Scheduled Amlodipine (Norvasc), 10 MG PO DAILY Aspirin (Aspirin Ec), 81 MG PO QAM Carvedilol (Carvedilol), 12.5 MG PO BID Cholecalciferol (Vitamin D3), 2,000 INTER.UNIT PO QAM Enalapril Maleate (Enalapril Maleate), 1 TAB PO NOON Furosemide (Lasix), 20 MG PO 2XWK Gabapentin (Neurontin), 300 MG PO QID Insulin Aspart (Novolog Flexpen), 7 UNITS SQ QAM Insulin Aspart (Novolog Flexpen), 14 UNITS SQ UD Insulin Glargine (Lantus Solostar), 45 UNITS SC HS Isosorbide Dinitrate (Isordil), 20 MG PO TID Pantoprazole (Protonix), 40 MG PO QAM Rosuvastatin Calcium (Crestor), 40 MG PO HS Scheduled PRN Albuterol (Ventolin Hfa), 2 PUFFS INH Q4H PRN for SOB/Wheezing Allergies Coded Allergies: No Known Allergies (Verified , 04/17/17) Physical Exam Vital Signs Date Time Temp Pulse Resp B/P (MAP) Pulse Ox O2 Delivery O2 Flow Rate FiO2 04/17/17 23:33 36.9 72 24 168/108 91 Room Air 04/17/17 23:33 91 Room Air 04/17/17 23:33 91 Room Air 04/17/17 23:33 91 Room Air 04/17/17 23:17 71 Physical Exam CONSTITUTIONAL/VITAL SIGNS: Reviewed / noted above. GENERAL: Non-toxic in appearance. INTEGUMENTARY: Warm, dry, and Petty. HEAD: Normocephalic. EYES: without scleral icterus or trauma. ENT/OROPHARYNX: clear and moist. LYMPHADENOPATHY/NECK: Is supple without lymphadenopathy or meningismus. RESPIRATORY: Bibasilar crackles. CARDIOVASCULAR: Regular rate and rhythm. GI/ABDOMEN: Soft and nontender. No organomegaly or pulsatile mass. No rebound or guarding. Normal bowel sounds. EXTREMITIES: Warm and well perfused. BACK: No CVA tenderness. NEUROLOGICAL: Intact without focal deficits. PSYCHIATRIC: normal affect. MUSCULOSKELETAL: Normally developed with good muscle tone. Medical Decision & Procedures ER Provider Diagnostic Interpretation: X ray results and stated below per my interpretation: Chest X-ray: Patchy bibasilar opacities. Similar to 03/21/2017. Likely atelectasis. Laboratory Results 04/17/17 23:20 Red Blood Count 4.64, Mean Corpuscular Volume 83.0, Mean Corpuscular Hemoglobin 28.2, Mean Corpuscular Hemoglobin Concent 34.0, Mean Platelet Volume 9.4, Neutrophils (%) (Auto) 72.7, Lymphocytes (%) (Auto) 14.8, Monocytes (%) (Auto) 9.0, Eosinophils (%) (Auto) 2.8, Basophils (%) (Auto) 0.5, Neutrophils # (Auto) 4.63, Lymphocytes # (Auto) 0.94, Monocytes # (Auto) 0.57, Eosinophils # (Auto) 0.18, Basophils # (Auto) 0.03 04/17/17 23:20 Test 04/17/17 23:20 White Blood Count 6.36 K/uL (4.8-10.8) Red Blood Count 4.64 M/uL (4.7-6.1) Hemoglobin 13.1 g/dL (14.0-18.0) Hematocrit 38.5 % (42-52) Mean Corpuscular Volume 83.0 fL (80-100) Mean Corpuscular Hemoglobin 28.2 pg (25-34) Mean Corpuscular Hemoglobin Concent 34.0 g/dl (32-36) Platelet Count 124 K/uL (130-400) Mean Platelet Volume 9.4 fL (7.4-10.4) Neutrophils (%) (Auto) 72.7 % Lymphocytes (%) (Auto) 14.8 % Monocytes (%) (Auto) 9.0 % Eosinophils (%) (Auto) 2.8 % Basophils (%) (Auto) 0.5 % Neutrophils # (Auto) 4.63 K/uL (1.4-6.5) Lymphocytes # (Auto) 0.94 K/uL (1.2-3.4) Monocytes # (Auto) 0.57 K/uL (0.11-0.59) Eosinophils # (Auto) 0.18 K/uL (0-0.5) Basophils # (Auto) 0.03 K/uL (0-0.2) RDW Standard Deviation 38.4 fL (36.4-46.3) RDW Coefficient of Variation 12.8 % (11.5-14.5) Immature Granulocyte % (Auto) 0.2 % Immature Granulocyte # (Auto) 0.01 K/uL (0.00-0.02) Prothrombin Time 10.6 SECONDS (9.0-12.0) Prothromb Time International Ratio 1.0 (0.9-1.1) Activated Partial Thromboplast Time 24.6 SECONDS (21.0-31.0) Partial Thromboplastin Ratio 0.9 Anion Gap 7.0 mmol/L (3-11) Est Creatinine Clear Calc Drug Dose 51.8 ml/min Estimated GFR () 45.7 Estimated GFR (Non- 39.4 BUN/Creatinine Ratio 20.7 (10-20) Calcium Level 8.8 mg/dl (8.5-10.1) Total Bilirubin 0.5 mg/dl (0.2-1) Aspartate Amino Transf (AST/SGOT) 17 U/L (15-37) Alanine Aminotransferase (ALT/SGPT) 25 U/L (12-78) Alkaline Phosphatase 83 U/L (45-117) Total Creatine Kinase 184 U/L (39-308) Creatine Kinase MB 4.8 ng/ml (0.5-3.6) Creatine Kinase MB Ratio 2.6 (0-3.0) Troponin I 0.028 ng/ml (0-0.045) Pro-B-Type Natriuretic Peptide 1781 pg/ml (0-900) Total Protein 6.6 gm/dl (6.4-8.2) Albumin 3.2 gm/dl (3.4-5.0) Globulin 3.4 gm/dl (2.5-4.0) Albumin/Globulin Ratio 0.9 (0.9-2) Laboratory results as stated above per my review. Medications Administered Medications (Trade) Dose Ordered Sig/Larry Route Start Time Stop Time Status Last Admin Dose Admin Albuterol/ Ipratropium (Duoneb) 3 ml NOW STAT INH 04/17/17 23:17 04/17/17 23:19 DC 04/17/17 23:32 3 ML ECG Indication: SOB/dyspnea Rate (beats per minute): 69 Rhythm: sinus rhythm Findings: 1st degree AV block, LBBB, no ectopy, other (no acute injury) Comparison ECG Date: 22-Mar-2017 Change: no significant change ED Course 2306: Previous medical records were reviewed. The patient was evaluated in room B1. A complete history and physical examination was performed. 2317: Duoneb 3 ml INH. 0103: On reevaluation, the patient is improved. I discussed the results and findings with the patient. He verbalized agreement of the treatment plan. He was discharged home. Medical Decision the differential was considered includes acute myocardial infarction, acute coronary syndrome, myocarditis, pericarditis, pericardial effusions /tamponade, esophageal perforation, pulmonary embolism, pneumonia, pneumothorax, cardiomyopathy, congestive heart, anemia , COPD/asthma exacerbation. This is a 62-year-old male who presents to the ED with a chief complaint of shortness of breath. The patient's symptoms started prior to his arrival. He does use oxygen at night home. He was placed on CPAP and they transported here. Review of the patient's records reveal that he was here earlier this month. He had pulmonary function tests that revealed very mild obstructive small airway disease. The patient denies any fevers or recent cold symptoms. His physical exam was unremarkable. He had minimal basilar crackles on exam. Oxygen saturations were noted to be in the mid 90s on room air. The patient was given a DuoNeb treatment here. On reassessment, he is breathing is comfortable. He is watching TV in no distress. The patient will be discharged on prednisone for 3 days. He does have an inhaler at home. The patient's blood work reveals an unremarkable CBC. BUN and creatinine are elevated at baseline. Glucose was 230. Chest x-ray, per my interpretation did not show acute disease. It appeared similar to a previous chest x-ray with some basilar atelectasis. BNP was elevated at 1781. Clinically does not have pulmonary edema on exam. After reassessed the patient, he was felt to be stable for discharge. Medication Reconcilliation Current Medication List: was personally reviewed by me Blood Pressure Screening Patient's blood pressure: Elevated blood pressure Blood pressure disposition: Referred to PCP Impression Primary Impression: Shortness of breath Scribe Attestation The scribe's documentation has been prepared under my direction and personally reviewed by me in its entirety. I confirm that the note above accurately reflects all work, treatment, procedures, and medical decision making performed by me. Departure Information Dispostion Home / Self-Care Prescriptions Prednisone (Prednisone) 20 Mg Tab 1 TAB PO DAILY for 3 Days, #3 TAB Prov: Winston Mitchell D.O. 04/18/17 Referrals Mabel Butts M.D. (PCP) Patient Instructions Asthma - [facility], COPD - [facility], Croup - [facility], My [facility] Additional Instructions Prednisone as prescribed for 3 days. Check your blood sugars regularly and use your insulin for elevated blood sugars. Use your inhaler every 2-4 hours for shortness of breath. Use her oxygen for shortness of breath.
[2017-04-18 01:45] VITALS: BP 144/95; PULSE 77; O2SAT 93
--- NOTE | 2017-04-18 06:15 | DIAGNOSTIC IMAGING REPORT ---
CHEST ONE VIEW PORTABLE CLINICAL HISTORY: 62 years-old Male presenting with sob. TECHNIQUE: Portable upright AP view of the chest was obtained. COMPARISON: 03/21/2017. FINDINGS: Atherosclerosis of aortic arch. Cardiac silhouette enlarged. Hazy bibasilar opacities increased from prior. Degenerative changes of the thoracic spine. Upper abdomen normal. IMPRESSION: 1. Hazy bibasilar opacities increased from prior in the setting of cardiomegaly raises concern for pulmonary edema versus, less likely, atelectasis. Infection cannot be excluded. Electronically signed by: Pino Hood M.D. 04/18/2017 6:14 AM Dictated Date/Time: 04/18/2017 6:13 AM
[2017-04-19] MEDS ORDERED: LSX20 PO (11:50)
[2017-06-10] MEDS ORDERED: APR25 PO (14:23)
[2017-06-10] MEDS ORDERED: CMD5 PO (14:23)
[2017-06-10] MEDS ORDERED: INSDGIPEN SC (14:23)
[2017-06-10] MEDS ORDERED: CRD200 PO (14:25)
[2017-06-25] MEDS ORDERED: AMLO10TA3 PO (03:05)
[2017-06-25] MEDS ORDERED: FURO-85 PO (03:07)
[2017-06-25] MEDS ORDERED: DULO60CA44 PO (03:47)
[2017-06-25] MEDS ORDERED: FLUT1INH INH (03:47)
[2017-06-25] MEDS ORDERED: IPRA-64 INH (15:22)
[2017-07-05] MEDS ORDERED: APR25 PO ×2 (14:26→15:23)
[2017-07-05] MEDS ORDERED: NRV5 PO ×2 (14:26→15:23)
[2017-07-05] MEDS ORDERED: TPRSR50 PO ×2 (14:26→15:23)
[2017-07-05] MEDS ORDERED: TORS20TA3 PO ×2 (14:26→15:23)
[2017-09-04] MEDS ORDERED: AMLO5TAB3 PO (23:08)
[2017-12-07] MEDS ORDERED: NVLGI/PEN SQ (12:44)
[2017-12-07] MEDS ORDERED: INSDGIPEN SQ (12:44)
[2017-12-07] MEDS ORDERED: HYDR-2977 PO (12:44)
[2017-12-07] MEDS ORDERED: INSU100I2 SQ (13:31)
== END 2017-04-18 01:45 | disposition home or self-care (01) ==
LOC: EDBD 23:05 → C.EDB 23:07
DX: R06.02 Shortness of breath (principal); I25.10 Atherosclerotic heart disease of native coronary artery without angina pectoris; I12.9 Hypertensive chronic kidney disease with stage 1 through stage 4 chronic kidney disease, or unspecified chronic kidney disease; E11.22 Type 2 diabetes mellitus with diabetic chronic kidney disease; N18.3 Chronic kidney disease, stage 3 (moderate); E78.5 Hyperlipidemia, unspecified; Z79.82 Long term (current) use of aspirin; Z79.4 Long term (current) use of insulin; Z83.3 Family history of diabetes mellitus; Z82.49 Family history of ischemic heart disease and other diseases of the circulatory system

== ENCOUNTER 2017-04-18 06:23 | Observation (INO) | payer BC ==
[~2017-04-18] VITALS: Ht 172.7 cm; Wt 108.3 kg
[2017-04-18] VITALS (7 sets, daily range): BP systolic 126–167; BP diastolic 65–90; PULSE 60–71; TEMP 36.6–36.8; O2SAT 93–98; Ht 172.7 cm; Wt 108.3 kg
[~2017-04-18 06:23] MED LIST changes: +AMLO-114 PO; -AMLO10TA3 PO; +ASPI81TA28 PO; +CHOL20007 PO; +CRG25 PO; +NVLGI/PEN SQ; +NVLGIPEN SQ; +PANT40TA PO; +PRED20TA PO; +PRVHFAIN INH; +ROSU40TA PO
[2017-04-18] MEDS ORDERED: ALBUT/IPRATROP 3MG/0.5MG NEB 3 ML VIAL INH STA (06:40)
--- NOTE | 2017-04-18 06:42 | EMERGENCY ROOM VISIT NOTE ---
History Report prepared by Felipe: Ignacio Butterfield Under the Supervision of: Dr. Augustin Diaz M.D. First contact with patient: 06:33 Chief Complaint: RESPIRATORY PROBLEMS Stated Complaint: HARD TO BREATHE History of Present Illness The patient is a 62 year old male with a history of pulmonary edema who presents to the Emergency Room with complaints of worsening shortness of breath that started a few days ago. He states that the breathing difficulties are intermittent, and worsened a lot yesterday. He says that he cannot sleep due to the shortness of breath, and it is worse with laying down. He states that he has a dry cough as well. The patient notes that he has been having some chest pain around his left rib cage, and this chest pain is brought on by heavy breathing. He adds that his hands are swollen. The patient was here a few hours ago for the same shortness of breath, and had a nebulizer treatment here, which helped, but his symptoms came back prior to arrival. He was put on Prednisone. The patient denies any fevers, aches, or flu-like symptoms. He notes no history of emphysema. He does chew tobacco currently, and he is an ex-smoker. The patient's son does not think the patient is on any blood thinners. The patient says that he was told that he had signs of a heart attack in the past. Source of History: patient, family Onset: A few days ago Position: other (global - shortness of breath) Symptom Intensity: cannot sleep Timing: intermittent, worsening Modifying Factors (Worsening): other (laying down) Associated Symptoms: + cough, + chest pain, No fevers Note: Denies aches or flu-like symptoms. Review of Systems See HPI for pertinent positives & negatives. A total of 10 systems reviewed and were otherwise negative. Past Medical & Surgical Medical Problems: (1) Asthma (2) CAD (coronary artery disease) (3) Chest pain (4) CKD (chronic kidney disease), stage III (5) DM type 2 (diabetes mellitus, type 2) (6) Dyslipidemia (7) Hypertension (8) LBBB (left bundle branch block) (9) Mild aortic stenosis (10) Nonischemic cardiomyopathy (11) Respiratory failure, acute Surgical Problems: (1) H/O cardiac catheterization (2) S/p adrenal gland surgery Old medical records were reviewed. Nurse's notes were reviewed and I agree with. Family History Diabetes mellitus SISTER BROTHER FH: CHF (congestive heart failure) MOTHER Hypertension SON Social History Smoking Status: Never Smoker Drug Use: none Marital Status: Housing Status: lives with significant other Occupation Status: retired Current/Historical Medications Scheduled Amlodipine (Norvasc), 10 MG PO DAILY Aspirin (Aspirin Ec), 81 MG PO QAM Carvedilol (Carvedilol), 12.5 MG PO BID Cholecalciferol (Vitamin D3), 2,000 INTER.UNIT PO QAM Enalapril Maleate (Enalapril Maleate), 1 TAB PO NOON Furosemide (Lasix), 20 MG PO 2XWK Gabapentin (Neurontin), 300 MG PO QID Insulin Aspart (Novolog Flexpen), 7 UNITS SQ QAM Insulin Aspart (Novolog Flexpen), 14 UNITS SQ UD Insulin Glargine (Lantus Solostar), 45 UNITS SC HS Isosorbide Dinitrate (Isordil), 20 MG PO TID Pantoprazole (Protonix), 40 MG PO QAM Prednisone (Prednisone), 1 TAB PO DAILY Rosuvastatin Calcium (Crestor), 40 MG PO HS Scheduled PRN Albuterol (Ventolin Hfa), 2 PUFFS INH Q4H PRN for SOB/Wheezing Allergies Coded Allergies: No Known Allergies (Verified , 04/17/17) Physical Exam Vital Signs Date Time Temp Pulse Resp B/P (MAP) Pulse Ox O2 Delivery O2 Flow Rate FiO2 04/18/17 07:42 69 04/18/17 07:38 66 22 181/104 93 Room Air 04/18/17 06:38 70 28 97 Nasal Cannula 2.0 04/18/17 06:29 36.5 74 20 176/89 92 Room Air Physical Exam General: Mildly ill-appearing middle-aged male, mild tachypnea but otherwise no acute distress. HEENT: Normal cephalic atraumatic. Pupils are equal round and reactive to light. Extraocular movements are intact. Oropharynx is pink with moist mucous membranes. No swelling of the mouth lips or tongue. Neck: Supple with a midline trachea. No meningeal signs or stiffness, no JVD or bruits. No Stridor. Chest: Clear to auscultation bilaterally. No wheezes or rhonchi. No increased work of breathing. Heart: regular rate and rhythm. Abdomen: Soft nontender, nondistended without rebound guarding or rigidity. Extremities: No cyanosis or clubbing. Trace to 1+ bilateral lower extremity edema. No calf tenderness or assymetry Spine/Back. Non tender to palpation. No CVA tenderness Skin: Good turgor without rashes. Neurologic exam: Cranial nerves two through 12 are intact. Motor and sensation are intact and symmetrical throughout. Medical Decision & Procedures ER Provider Diagnostic Interpretation: X-ray results as stated below per interpretation by me and the radiologist: CHEST ONE VIEW PORTABLE CLINICAL HISTORY: 62 years-old Male presenting with CHEST PAIN. TECHNIQUE: Portable upright AP view of the chest was obtained. COMPARISON: 04/17/2017. FINDINGS: Atherosclerosis of aortic arch. Cardiac silhouette enlarged. Increased hazy bibasilar opacities, right greater than left. Trace bilateral pleural effusions may be present. No pneumothorax. Degenerative changes of the thoracic spine. Upper abdomen normal. IMPRESSION: 1. Increasing bibasilar opacities in the setting of cardiomegaly concerning for worsening pulmonary edema. Differential considerations include aspiration or infection. Electronically signed by: Pino Hood M.D. 04/18/2017 7:10 AM Dictated Date/Time: 04/18/2017 7:09 AM Laboratory Results 04/18/17 06:50 Red Blood Count 4.69, Mean Corpuscular Volume 82.5, Mean Corpuscular Hemoglobin 28.6, Mean Corpuscular Hemoglobin Concent 34.6, Mean Platelet Volume 9.1, Neutrophils (%) (Auto) 78.2, Lymphocytes (%) (Auto) 12.2, Monocytes (%) (Auto) 7.2, Eosinophils (%) (Auto) 2.2, Basophils (%) (Auto) 0.1, Neutrophils # (Auto) 5.30, Lymphocytes # (Auto) 0.83, Monocytes # (Auto) 0.49, Eosinophils # (Auto) 0.15, Basophils # (Auto) 0.01 04/18/17 06:50 Test 04/18/17 00:00 04/18/17 06:50 Influenza Type A Antigen Neg for Influ A (NEG) Influenza Type B Antigen Neg for Influ B (NEG) White Blood Count 6.79 K/uL (4.8-10.8) Red Blood Count 4.69 M/uL (4.7-6.1) Hemoglobin 13.4 g/dL (14.0-18.0) Hematocrit 38.7 % (42-52) Mean Corpuscular Volume 82.5 fL (80-100) Mean Corpuscular Hemoglobin 28.6 pg (25-34) Mean Corpuscular Hemoglobin Concent 34.6 g/dl (32-36) Platelet Count 117 K/uL (130-400) Mean Platelet Volume 9.1 fL (7.4-10.4) Neutrophils (%) (Auto) 78.2 % Lymphocytes (%) (Auto) 12.2 % Monocytes (%) (Auto) 7.2 % Eosinophils (%) (Auto) 2.2 % Basophils (%) (Auto) 0.1 % Neutrophils # (Auto) 5.30 K/uL (1.4-6.5) Lymphocytes # (Auto) 0.83 K/uL (1.2-3.4) Monocytes # (Auto) 0.49 K/uL (0.11-0.59) Eosinophils # (Auto) 0.15 K/uL (0-0.5) Basophils # (Auto) 0.01 K/uL (0-0.2) RDW Standard Deviation 38.7 fL (36.4-46.3) RDW Coefficient of Variation 12.9 % (11.5-14.5) Immature Granulocyte % (Auto) 0.1 % Immature Granulocyte # (Auto) 0.01 K/uL (0.00-0.02) Anion Gap 8.0 mmol/L (3-11) Est Creatinine Clear Calc Drug Dose 55.0 ml/min Estimated GFR () 49.7 Estimated GFR (Non- 42.9 BUN/Creatinine Ratio 20.3 (10-20) Calcium Level 9.0 mg/dl (8.5-10.1) Total Bilirubin 0.7 mg/dl (0.2-1) Direct Bilirubin 0.1 mg/dl (0-0.2) Aspartate Amino Transf (AST/SGOT) 16 U/L (15-37) Alanine Aminotransferase (ALT/SGPT) 26 U/L (12-78) Alkaline Phosphatase 83 U/L (45-117) Pro-B-Type Natriuretic Peptide 1929 pg/ml (0-900) Total Protein 6.9 gm/dl (6.4-8.2) Albumin 3.2 gm/dl (3.4-5.0) Lipase 296 U/L (73-393) Thyroid Stimulating Hormone (TSH) 2.590 uIu/ml (0.300-4.500) Laboratory studies as stated above per my review. Medications Administered Medications (Trade) Dose Ordered Sig/Larry Route Start Time Stop Time Status Last Admin Dose Admin Albuterol/ Ipratropium (Duoneb) 3 ml NOW STAT INH 04/18/17 06:40 04/18/17 06:43 DC 04/18/17 06:40 3 ML Furosemide (Lasix Inj) 20 mg NOW STAT IV 04/18/17 07:30 04/18/17 07:31 DC 04/18/17 07:44 20 MG ECG Indication: SOB/dyspnea Rate (beats per minute): 65 Rhythm: normal sinus Findings: 1st degree AV block, LBBB Comparison ECG Date: compared to Apr 17 2017, possible changes in V5 and V6, otherwise no acute change ED Course 0633: Past medical records reviewed. The patient was evaluated in room A2, and a complete history and physical examination were performed. 0640: Ordered Duoneb 3 ml INH. 0730: Ordered Lasix Inj 20 mg IV. 0732: Upon reevaluation, the patient is feeling better. I discussed the results and treatment plan with the patient. He verbalized agreement of the treatment plan. The patient will be evaluated for further management. 0744: Discussed the patient's case with Dr. Trae Delatorre student development dean. The patient will be evaluated for further management. Medical Decision Differentials include CHF, COPD exacerbation, pneumonia, electrolyte or metabolic abnormality, acute coronary syndrome, arrhythmia. This patient comes in as described above. He comes in complaining that he is short of breath. This has been going on for a couple days. He was just here last evening. He said the neb to help him but when he got home and went to bed particularly lay flat, symptoms would recur. He was admitted to the hospital at the beginning of this month for similar complaints and had a excessive workup which showed mild restrictive lung disease on pulmonary function tests. On exam, he appears mildly tachypneic. He was given a DuoNeb. IV access established and multiple blood testing was obtained chest x-ray and EKG was obtained. He was reassessed frequently. Chest x-ray does suggest CHF. His BNP is also elevated and was given Lasix 20 mg IV. He think he needs to be admitted/observed for further inpatient treatment and evaluation. I did consult the [facility] hospitalist and was seen in the ER for these measures. Medication Reconcilliation Current Medication List: was personally reviewed by me Blood Pressure Screening Patient's blood pressure: Elevated blood pressure Refer to hospitalist. Consults Time Called: 0740 Consulting Physician: Dr. Trae Delatorre student development dean Returned Call: 0744 Discussed the patient's case with Dr. Trae Delatorre student development dean. The patient will be evaluated for further management. Impression Primary Impression: CHF (congestive heart failure) Scribe Attestation The scribe's documentation has been prepared under my direction and personally reviewed by me in its entirety. I confirm that the note above accurately reflects all work, treatment, procedures, and medical decision making performed by me. Departure Information Dispostion Being Evaluated By Hospitalist Referrals Mabel Butts M.D. (PCP) Patient Instructions My [facility] Problem Qualifiers Primary Impression: CHF (congestive heart failure) Congestive heart failure type: unspecified congestive heart failure type Congestive heart failure chronicity: unspecified congestive heart failure chronicity Qualified Codes: I50.9 - Heart failure, unspecified
[2017-04-18 07:07] LABS: BASO % 0.1 %; BASO ABS # 0.01 K/uL (0-0.2); EOS % 2.2 %; EOS ABS # 0.15 K/uL (0-0.5); HEMATOCRIT 38.7 % (42-52); HEMOGLOBIN 13.4 g/dL (14.0-18.0); IG# 0.01 K/uL (0.00-0.02); LYMPH % 12.2 %; LYMPH ABS # 0.83 K/uL (1.2-3.4); MEAN CELL VOLUME 82.5 fL (80-100); MEAN CORPUSCULAR HEMOGLOBIN 28.6 pg (25-34); MEAN CORPUSCULAR HGB CONC 34.6 g/dl (32-36); MEAN PLATELET VOLUME 9.1 fL (7.4-10.4); MONO % 7.2 %; MONO ABS # 0.49 K/uL (0.11-0.59); NEUT % 78.2 %; PLATELET COUNT 117 K/uL (130-400); RED CELL DISTRIBUTION WIDTH CV 12.9 % (11.5-14.5); RED CELL DISTRIBUTION WIDTH SD 38.7 fL (36.4-46.3); WHITE BLOOD COUNT 6.79 K/uL (4.8-10.8)
--- NOTE | 2017-04-18 07:11 | DIAGNOSTIC IMAGING REPORT ---
CHEST ONE VIEW PORTABLE CLINICAL HISTORY: 62 years-old Male presenting with CHEST PAIN. TECHNIQUE: Portable upright AP view of the chest was obtained. COMPARISON: 04/17/2017. FINDINGS: Atherosclerosis of aortic arch. Cardiac silhouette enlarged. Increased hazy bibasilar opacities, right greater than left. Trace bilateral pleural effusions may be present. No pneumothorax. Degenerative changes of the thoracic spine. Upper abdomen normal. IMPRESSION: 1. Increasing bibasilar opacities in the setting of cardiomegaly concerning for worsening pulmonary edema. Differential considerations include aspiration or infection. Electronically signed by: Pino Hood M.D. 04/18/2017 7:10 AM Dictated Date/Time: 04/18/2017 7:09 AM
[2017-04-18 07:24] LABS: ALBUMIN 3.2 gm/dl (3.4-5.0); CREATININE 1.67 mg/dl (0.60-1.40)
[2017-04-18] MEDS ORDERED: FUROSEMIDE 40 MG/4 ML VIAL IV STA (07:30)
[2017-04-18 07:35] LABS: TOTAL PROTEIN 6.9 gm/dl (6.4-8.2)
[2017-04-18] MEDS ORDERED: ALBUTEROL 0.083% NEBU SOLN 3 ML VIAL INH STA (08:15)
[2017-04-18] MEDS ORDERED: ALBUTEROL 0.083% NEBU SOLN 3 ML VIAL INH PRN (08:15)
[2017-04-18] MEDS ORDERED: GLUCAGON FOR INJ 1 MG VIAL SQ PRN (08:30)
[2017-04-18] MEDS ORDERED: DEXTROSE 50% 50 ML SYR IV PRN (08:30)
[2017-04-18] MEDS ORDERED: GLUCOSE 10 TABS/TUBE PO PRN (08:30)
[2017-04-18] MEDS ORDERED: AMLODIPINE BESYLATE 5 MG TAB PO ONE (08:30)
[2017-04-18] MEDS ORDERED: GLUCOSE 40% GEL 15 GM TUBE PO PRN (08:30)
--- NOTE | 2017-04-18 08:51 | History and Physical ---
History & Physical Date & Time of Service: Apr 18, 2017 at 08:47 Chief Complaint: Hard To Breathe Primary Care Physician: Mabel Butts M.D. History of Present Illness Source: patient, family This is a 62 year old Male PMH of asthma hypertension, chronic systolic heart failure secondary to nonischemic cardiomyopathy, EF 40-44% from October 2016 echo and subsequent echo in March 2017 Ejection Fraction 35-40%, nonocclusive CAD, chronic left bundle branch block, moderate aortic valve stenosis, PFT in March 2017 Very mild obstructive small airways disease with no significant improvement after inhaled bronchodilator, chronic anemia , chronic renal insufficiency, DM2, insulin requiring, chronic thrombocytopenia who was discharged from hospitalization on March 24, 2017 and had ED presentation on 04/17/17 reporting shortness of breath. Patient hypertensive on admission withs systolic blood pressure above 170 Patient was treated with a nebulizer treatment and was expected to be discharged from the ED overnight in the soda dispenser hours of but continued to report of shortness of breath to the AM emergency room physician shift. Was treated again with 1 nebulizer treatment and additional medication of 20 mg IV Lasix. Based on the Chest X ray in the AM there is Increasing bibasilar opacities in the setting of cardiomegaly concerning for worsening pulmonary edema When seen by hospitalist, patient breathing on room air and in no acute distress , speaking in full sentences, and was able to ambulate to the bathroom on his own without any additional oxygen support. Patient's saturation on room air was 89 to 92%. Lung exam with good air entry and no wheezing. Patient reports that he has been using home oxygen at night since hospital discharge from March. Denies using any oxygen during the day time. Describes a sedentary lifestyle and sits around at home. Reports that his breathing has been progressively worse over the course of months. Could not describe any acute provoking events for the subjective feeling of shortness of breath. Denies fevers, rhinorrhea, or flu like symptoms, or fevers, or chest pain. Does report some swelling of lower extremities of which there is 1 + pitting edema bilaterally. Patient also has elevated BNP of 1929. Patient also hypertensive with systolic blood pressure 184/104. Patient reports that he regularly takes his cardiovascular medications at home but not today while in emergency room. Past Medical/Surgical History Medical Problems: (1) Asthma Status: Chronic (2) CAD (coronary artery disease) Permanent Comment: nonobstructive Status: Chronic (3) CKD (chronic kidney disease), stage III Status: Chronic (4) DM type 2 (diabetes mellitus, type 2) Status: Chronic (5) Dyslipidemia Status: Chronic (6) Hypertension Status: Chronic (7) LBBB (left bundle branch block) Status: Chronic (8) Mild aortic stenosis Status: Chronic (9) Nonischemic cardiomyopathy Permanent Comment: EF 45-49% on echo 08/2014 Status: Chronic Surgical Problems: (1) H/O cardiac catheterization Permanent Comment: 03/29/2012- mild nonobstructive CAD Status: Chronic (2) S/p adrenal gland surgery Status: Chronic Family History Diabetes mellitus SISTER BROTHER FH: CHF (congestive heart failure) MOTHER Hypertension SON Social History Smoking Status: Never Smoker Drug Use: none Marital Status: Housing status: lives with significant other Occupational Status: retired Allergies Coded Allergies: No Known Allergies (Verified , 04/17/17) Home Medications Scheduled Amlodipine (Norvasc), 10 MG PO DAILY Aspirin (Aspirin Ec), 81 MG PO QAM Carvedilol (Carvedilol), 12.5 MG PO BID Cholecalciferol (Vitamin D3), 2,000 INTER.UNIT PO QAM Enalapril Maleate (Enalapril Maleate), 1 TAB PO NOON Furosemide (Lasix), 20 MG PO 2XWK Gabapentin (Neurontin), 300 MG PO QID Insulin Aspart (Novolog Flexpen), 7 UNITS SQ QAM Insulin Aspart (Novolog Flexpen), 14 UNITS SQ UD Insulin Glargine (Lantus Solostar), 45 UNITS SC HS Isosorbide Dinitrate (Isordil), 20 MG PO TID Pantoprazole (Protonix), 40 MG PO QAM Prednisone (Prednisone), 1 TAB PO DAILY Rosuvastatin Calcium (Crestor), 40 MG PO HS Scheduled PRN Albuterol (Ventolin Hfa), 2 PUFFS INH Q4H PRN for SOB/Wheezing Review of Systems Constitutional: No fever, No chills Eyes: No worsening of vision, No eye pain, No redness, No discharge, No diplopia, No problem reported ENT: No hearing loss, No unusual epistaxis, No nasal symptoms, No sore throat, No tinnitus, No dental problems, No trouble swallowing, No problem reported Respiratory: + shortness of breath, + dyspnea on exertion, + dyspnea at rest, No cough, No sputum, No wheezing, No hemoptysis, No problem reported Cardiovascular: + edema (some swelling of lower extremities), No chest pain, No orthopnea, No PND, No claudication, No palpitations, No problem reported Abdomen: No pain, No nausea, No vomiting, No diarrhea, No constipation, No GI bleeding, No problem reported Musculoskeletal: No joint pain, No muscle pain, No swelling, No calf pain, No problem reported Genitourinary - Male: No hematuria, No dysuria, No urinary frequency, No urinary urgency, No urinary hesitancy, No urinary retention, No urinary incontinence, No penile discharge, No lesions, No impotence, No problem reported Neurologic: No memory loss, No paralysis, No weakness, No numbness/tingling, No vertigo, No balance problems, No problem reported Psychiatric: No substance abuse Endocrine: No excessive thirst, No excessive urination Hematologic / Lymphatic: No abnormal bleeding/bruising Allergic / Immunologic: No environmental allergies, No food allergies Physical Exam Vital Signs Date Time Temp Pulse Resp B/P (MAP) Pulse Ox O2 Delivery O2 Flow Rate FiO2 04/18/17 07:42 69 04/18/17 07:38 66 22 181/104 93 Room Air 04/18/17 06:38 70 28 97 Nasal Cannula 2.0 04/18/17 06:29 36.5 74 20 176/89 92 Room Air General Appearance: no apparent distress, + pertinent finding (reports feeling shortness of breath) Head: normocephalic, atraumatic Eyes: normal inspection, EOMI ENT: hearing grossly normal, pharynx normal Neck: thyroid normal, no JVD, trachea midline Respiratory/Chest: chest non-tender, lungs clear, normal breath sounds, no respiratory distress, no accessory muscle use Cardiovascular: regular rate, rhythm Abdomen/GI: normal bowel sounds, non tender, soft, no organomegaly Back: normal inspection, no muscle spasm, normal range of motion Extremities/Musculoskelatal: normal inspection, no calf tenderness, normal range of motion, non-tender, + swelling (+ 1 lower extremity edema bilaterally) Neurologic/Psych: inspector outside production II-XII nml as tested, no motor/sensory deficits, alert, normal mood/affect, oriented x 3 Skin: normal color, warm/dry Diagnostics Laboratory Results Results Past 24 Hours Test 04/18/17 06:50 Range/Units White Blood Count 6.79 4.8-10.8 K/uL Red Blood Count 4.69 4.7-6.1 M/uL Hemoglobin 13.4 14.0-18.0 g/dL Hematocrit 38.7 42-52 % Mean Corpuscular Volume 82.5 80-100 fL Mean Corpuscular Hemoglobin 28.6 25-34 pg Mean Corpuscular Hemoglobin Concent 34.6 32-36 g/dl Platelet Count 117 130-400 K/uL Mean Platelet Volume 9.1 7.4-10.4 fL Neutrophils (%) (Auto) 78.2 % Lymphocytes (%) (Auto) 12.2 % Monocytes (%) (Auto) 7.2 % Eosinophils (%) (Auto) 2.2 % Basophils (%) (Auto) 0.1 % Neutrophils # (Auto) 5.30 1.4-6.5 K/uL Lymphocytes # (Auto) 0.83 1.2-3.4 K/uL Monocytes # (Auto) 0.49 0.11-0.59 K/uL Eosinophils # (Auto) 0.15 0-0.5 K/uL Basophils # (Auto) 0.01 0-0.2 K/uL RDW Standard Deviation 38.7 36.4-46.3 fL RDW Coefficient of Variation 12.9 11.5-14.5 % Immature Granulocyte % (Auto) 0.1 % Immature Granulocyte # (Auto) 0.01 0.00-0.02 K/uL Sodium Level 137 136-145 mmol/L Potassium Level 4.0 3.5-5.1 mmol/L Chloride Level 102 98-107 mmol/L Carbon Dioxide Level 28 21-32 mmol/L Anion Gap 8.0 3-11 mmol/L Blood Urea Nitrogen 34 7-18 mg/dl Creatinine 1.67 0.60-1.40 mg/dl Est Creatinine Clear Calc Drug Dose 55.0 ml/min Estimated GFR () 49.7 Estimated GFR (Non- 42.9 BUN/Creatinine Ratio 20.3 10-20 Random Glucose 208 70-99 mg/dl Calcium Level 9.0 8.5-10.1 mg/dl Total Bilirubin 0.7 0.2-1 mg/dl Direct Bilirubin 0.1 0-0.2 mg/dl Aspartate Amino Transf (AST/SGOT) 16 15-37 U/L Alanine Aminotransferase (ALT/SGPT) 26 12-78 U/L Alkaline Phosphatase 83 45-117 U/L Pro-B-Type Natriuretic Peptide 1929 0-900 pg/ml Total Protein 6.9 6.4-8.2 gm/dl Albumin 3.2 3.4-5.0 gm/dl Lipase 296 73-393 U/L Thyroid Stimulating Hormone (TSH) 2.590 0.300-4.500 uIu/ml Diagnostic Radiology CXR Increasing bibasilar opacities in the setting of cardiomegaly concerning for worsening pulmonary edema EKG EKG ordered Impression Assessment and Plan This is a 62 year old M who has been having subjective shortness of breath and objective findings of possibly newly developing pulmonary infiltrates vs pulmonary edema with no clinical signs of infection. Patient has multifactorial reasons for shortness of breath (dyspnea) PMH of asthma, hypertension, chronic systolic heart failure secondary to nonischemic cardiomyopathy, EF 40-44% from October 2016 echo and subsequent echo in March 2017 Ejection Fraction 35-40%, nonocclusive CAD, chronic left bundle branch block, moderate aortic valve stenosis, PFT in March 2017 Very mild obstructive small airways disease with no significant improvement after inhaled bronchodilator, chronic anemia , chronic renal insufficiency, Patient's subjective symptoms of shortness of breath improved in the ED with nebulizer treatments Will continue nebulizer treatments while patient is under observation Patient is on albuterol at home only continue home oxygen at night PFTs in March 2017 did not find evidence for COPD and patient denies ever using tobacco products Patient has prior appointment for follow up 04/22/2017 9:00 AM Pino Hoover MD Pulmonary Medicine, [facility] Increased pulmonary infiltrates possibly from CHF given 20 mg Lasix in the ER continue Lasix as 20 mg PO daily repeat CXR on 04/19/17 patient does not have fever, no antibiotics for now patient did not get flu vaccine this year, send flu swab Continue home blood pressure medications for hypertension with systolic BP of 170 to 180 of amlodipine, enalapril, carvedilol CKD with creatinine 1.67 on admission which is improvement of 2 in previous hospital labs Thrombocytopenia Platelet 117 on admission which is baseline Diabetes Continue home dose Aspart and Lantus, sliding scale insulin, fingerstick glucose DVT ppx SCD Disposition: Observation Telemetry Resuscitation Status FULL RESUSCITATION VTE Prophylaxis VTE Risk Assessment Done? Y/N: Yes Risk Level: Moderate
[2017-04-18] MEDS ORDERED: ENALAPRIL MALEATE 10 MG TAB PO SCH (09:00)
[2017-04-18] MEDS ORDERED: IV FLUIDS COMPLETED PRN (09:45)
[2017-04-18] MEDS: ASPIRIN 81 MG ECTAB PO SCH (10:32)
[2017-04-18] MEDS: CARVEDILOL 12.5 MG TAB PO SCH ×2 (10:32→21:19)
[2017-04-18] MEDS: FUROSEMIDE 20 MG TAB PO SCH (10:33)
[2017-04-18] MEDS: AMLODIPINE BESYLATE 5 MG TAB PO SCH (10:33)
[2017-04-18] MEDS: GABAPENTIN 300 MG CAP PO SCH ×4 (10:33→21:19)
[2017-04-18] MEDS: PANTOprazole SOD 40 MG TAB PO SCH (10:34)
[2017-04-18] MEDS: CHOLECALCIFEROL 1000 INTER.UNIT TAB PO SCH (10:34)
[2017-04-18] MEDS: ENALAPRIL MALEATE 10 MG TAB PO SCH (10:34)
[2017-04-18] MEDS: INSULIN ASPART 100 UNITS/ML 3 ML PEN SQ SCH ×3 (10:35→17:39)
[2017-04-18 11:32] LABS: INFLUENZA B ANTIGEN Neg for Influ B (NEG)
[2017-04-18] MEDS ORDERED: INSULIN ASPART 100 UNITS/ML 3 ML PEN SQ SCH (12:00)
[2017-04-18] MEDS: ISOSORBIDE DINITRATE 20 MG TAB PO SCH ×2 (12:15→17:38)
[2017-04-18] MEDS: INSULIN ASPART 100 UNITS/ML 3 ML PEN SC SCH ×3 (12:17→21:00)
[2017-04-18] MEDS ORDERED: INSULIN GLARGINE SOLOSTAR 100 UNITS/ML 3 ML PEN SC SCH (21:00)
[2017-04-18] MEDS ORDERED: ROSUVASTATIN CALCIUM 20 MG TAB PO SCH (21:00)
[2017-04-19 05:23] VITALS: BP 122/66; PULSE 60; TEMP 37; O2SAT 95
[2017-04-19] MEDS: INSULIN ASPART 100 UNITS/ML 3 ML PEN SC SCH (06:30)
[2017-04-19 07:36] LABS: BASO % 0.3 %; BASO ABS # 0.02 K/uL (0-0.2); EOS % 2.4 %; EOS ABS # 0.14 K/uL (0-0.5); HEMOGLOBIN 11.5 g/dL (14.0-18.0); IG# 0.01 K/uL (0.00-0.02); LYMPH % 24.9 %; LYMPH ABS # 1.43 K/uL (1.2-3.4); MEAN CELL VOLUME 82.7 fL (80-100); MEAN CORPUSCULAR HGB CONC 33.8 g/dl (32-36); MEAN PLATELET VOLUME 9.3 fL (7.4-10.4); MONO % 9.4 %; MONO ABS # 0.54 K/uL (0.11-0.59); NEUT % 62.8 %; NEUT ABS # 3.61 K/uL (1.4-6.5); PLATELET COUNT 118 K/uL (130-400); RED CELL DISTRIBUTION WIDTH CV 12.7 % (11.5-14.5); RED CELL DISTRIBUTION WIDTH SD 38.2 fL (36.4-46.3); WHITE BLOOD COUNT 5.75 K/uL (4.8-10.8)
[2017-04-19 07:49] VITALS: BP 120/72; PULSE 67; TEMP 36.9; O2SAT 91
[2017-04-19] MEDS: CARVEDILOL 12.5 MG TAB PO SCH (08:08)
[2017-04-19] MEDS: FUROSEMIDE 20 MG TAB PO SCH (08:11)
[2017-04-19] MEDS: ASPIRIN 81 MG ECTAB PO SCH (08:11)
[2017-04-19] MEDS: GABAPENTIN 300 MG CAP PO SCH ×2 (08:11→12:25)
[2017-04-19] MEDS: CHOLECALCIFEROL 1000 INTER.UNIT TAB PO SCH (08:12)
[2017-04-19] MEDS: ENALAPRIL MALEATE 10 MG TAB PO SCH (08:12)
[2017-04-19] MEDS: AMLODIPINE BESYLATE 5 MG TAB PO SCH (08:12)
[2017-04-19] MEDS: PANTOprazole SOD 40 MG TAB PO SCH (08:12)
[2017-04-19] MEDS: ISOSORBIDE DINITRATE 20 MG TAB PO SCH ×2 (08:12→12:26)
[2017-04-19 08:13] LABS: ALBUMIN 2.7 gm/dl (3.4-5.0); CALCIUM 8.6 mg/dl (8.5-10.1); CREATININE 2.01 mg/dl (0.60-1.40); POTASSIUM 3.7 mmol/L (3.5-5.1)
[2017-04-19] MEDS: INSULIN ASPART 100 UNITS/ML 3 ML PEN SQ SCH ×2 (08:15→12:26)
[2017-04-19 08:18] LABS: TOTAL PROTEIN 5.9 gm/dl (6.4-8.2)
--- NOTE | 2017-04-19 09:30 | DIAGNOSTIC IMAGING REPORT ---
CHEST 2 VIEWS ROUTINE CLINICAL HISTORY: shortness of breath dyspnea COMPARISON STUDY: 04/18/2017 FINDINGS: Improved exam. Decreased prominence of pulmonary vasculature. Persistent cardiomegaly. Slight blunting right lateral gastric angle. IMPRESSION: Improved bibasilar infiltrative change and/or congestive failure. Moderate persistent cardiomegaly. Trace pleural fluid lateral right costophrenic angle. The above report was generated using voice recognition software. It may contain grammatical, syntax or spelling errors. Electronically signed by: Billy Phillips M.D. 04/19/2017 9:28 AM Dictated Date/Time: 04/19/2017 9:27 AM
[2017-04-19 10:48] VITALS: BP 120/77; PULSE 67; TEMP 37; O2SAT 92
--- NOTE | 2017-04-19 11:41 | Progress Note ---
Internal Med Progress Note Date of Service: Apr 19, 2017. Provider Documentation: SUBJECTIVE: Patient ambulating in hallway on room air. Reports breathing is better. No chest pain OBJECTIVE: Exam: General Appearance: no apparent distress Head: normocephalic, atraumatic Eyes: normal inspection, EOMI Neck: thyroid normal, no JVD, trachea midline Respiratory/Chest: chest non-tender, lungs clear, normal breath sounds, no respiratory distress, no accessory muscle use Cardiovascular: regular rate, rhythm Abdomen/GI: normal bowel sounds, non tender, soft, no organomegaly Back: normal inspection, no muscle spasm, normal range of motion Extremities/Musculoskelatal: normal inspection, no calf tenderness, normal range of motion, non-tender, + swelling (+ 1 lower extremity edema bilaterally) Neurologic/Psych: tunnel kiln 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 Cardiac silhouette enlarged. Increased hazy bibasilar opacities, right greater than left. Trace bilateral pleural effusions may be present. No pneumothorax. Degenerative changes of the thoracic spine. Upper abdomen normal. Patient received Lasix Follow up CXR 04/19/17 Improved exam. Decreased prominence of pulmonary vasculature.Persistent cardiomegaly. Slight blunting right lateral gastric angle. IMPRESSION: Improved bibasilar infiltrative change and/or congestive failure. Moderate persistent cardiomegaly. Trace pleural fluid lateral right costophrenic angle. Patient was placed on observation in the hospital with subjective shortness of breath improving after Furosemide. Patient received oxygen in the hospital but was not oxygen dependent. Patient received nebulizer treatments but no significant wheezing Patient's Discharge Instructions Dyspnea in setting of history of congestive heart failure but does not appear to have had an acute episode CKD with creatinine 1.67 on admission but rody Furosemide. Patient will be discharged on Furosemide 20 mg daily but will need to follow up with his outpatient doctor for adjustment of Furosemide to avoid kidney injury and dehydration Patient advised to limit fluid intake of sodas and drink water instead if thirsty Patient is on albuterol at home, continue this medication if shortness of breath with wheezing continue home oxygen at night Patient was hypertensive in the hospital Continue home blood pressure medications for hypertension amlodipine, enalapril , carvedilol Continue home dose Aspart and Lantus for Diabetes Follow up appointment 04/22/2017 9:00 AM Pino Hoover MD Pulmonary Medicine, [facility] 04/28/2017 2:20 PM Mabel Butts MD Internal Medicine [facility] Vital Signs: Date Time Temp Pulse Resp B/P (MAP) Pulse Ox O2 Delivery O2 Flow Rate FiO2 04/19/17 10:48 37.0 67 18 120/77 (91) 92 04/19/17 07:49 36.9 67 18 120/72 (88) 91 Nasal Cannula 2.0 04/19/17 07:45 Nasal Cannula 2.0 04/19/17 05:23 37.0 60 14 122/66 (84) 95 Room Air 04/19/17 04:00 Nasal Cannula 2.0 04/19/17 00:00 Nasal Cannula 2.0 04/18/17 23:10 36.8 60 16 132/65 (87) 93 Room Air 04/18/17 20:00 Nasal Cannula 2.0 04/18/17 19:56 36.6 64 20 132/80 (97) 96 Nasal Cannula 2.0 04/18/17 16:00 Nasal Cannula 2.0 04/18/17 14:58 36.6 60 16 126/68 (87) 96 2.0 60 04/18/17 12:00 Nasal Cannula 2.0 Lab Results: Results Past 24 Hours Test 04/18/17 16:21 04/18/17 20:30 04/19/17 07:08 04/19/17 07:40 Range/Units Bedside Glucose 75 97 78 70-99 mg/dl White Blood Count 5.75 4.8-10.8 K/uL Red Blood Count 4.11 4.7-6.1 M/uL Hemoglobin 11.5 14.0-18.0 g/dL Hematocrit 34.0 42-52 % Mean Corpuscular Volume 82.7 80-100 fL Mean Corpuscular Hemoglobin 28.0 25-34 pg Mean Corpuscular Hemoglobin Concent 33.8 32-36 g/dl Platelet Count 118 130-400 K/uL Mean Platelet Volume 9.3 7.4-10.4 fL Neutrophils (%) (Auto) 62.8 % Lymphocytes (%) (Auto) 24.9 % Monocytes (%) (Auto) 9.4 % Eosinophils (%) (Auto) 2.4 % Basophils (%) (Auto) 0.3 % Neutrophils # (Auto) 3.61 1.4-6.5 K/uL Lymphocytes # (Auto) 1.43 1.2-3.4 K/uL Monocytes # (Auto) 0.54 0.11-0.59 K/uL Eosinophils # (Auto) 0.14 0-0.5 K/uL Basophils # (Auto) 0.02 0-0.2 K/uL RDW Standard Deviation 38.2 36.4-46.3 fL RDW Coefficient of Variation 12.7 11.5-14.5 % Immature Granulocyte % (Auto) 0.2 % Immature Granulocyte # (Auto) 0.01 0.00-0.02 K/uL Sodium Level 140 136-145 mmol/L Potassium Level 3.7 3.5-5.1 mmol/L Chloride Level 104 98-107 mmol/L Carbon Dioxide Level 30 21-32 mmol/L Anion Gap 6.0 3-11 mmol/L Blood Urea Nitrogen 33 7-18 mg/dl Creatinine 2.01 0.60-1.40 mg/dl Est Creatinine Clear Calc Drug Dose 44.9 ml/min Estimated GFR () 39.7 Estimated GFR (Non- 34.3 BUN/Creatinine Ratio 16.5 10-20 Random Glucose 78 70-99 mg/dl Calcium Level 8.6 8.5-10.1 mg/dl Total Bilirubin 0.5 0.2-1 mg/dl Aspartate Amino Transf (AST/SGOT) 15 15-37 U/L Alanine Aminotransferase (ALT/SGPT) 21 12-78 U/L Alkaline Phosphatase 71 45-117 U/L Pro-B-Type Natriuretic Peptide 1703 0-900 pg/ml Total Protein 5.9 6.4-8.2 gm/dl Albumin 2.7 3.4-5.0 gm/dl Globulin 3.2 2.5-4.0 gm/dl Albumin/Globulin Ratio 0.9 0.9-2 Procalcitonin 0.10 0-0.5 ng/ml
[2017-04-19] MEDS ORDERED: LSX20 PO (11:50)
--- NOTE | 2017-04-19 12:00 | Discharge Instructions ---
Discharge Instructions Date of Service Apr 19, 2017. Admission Reason for Admission: Dyspnea Discharge Discharge Diagnosis / Problem: dyspnea, chronic heart failure, HTN, diabetes, ckd, thrombocytopenia Discharge Goals Goal(s): Improve function Activity Recommendations Activity Limitations: per Instructions/Follow-up section Shower/Bathe: no limitations . Instructions / Follow-Up Instructions / Follow-Up CXR 04/18/17 Atherosclerosis of aortic arch. Cardiac silhouette enlarged. Increased hazy bibasilar opacities, right greater than left. Trace bilateral pleural effusions may be present. No pneumothorax. Degenerative changes of the thoracic spine. Upper abdomen normal. Patient received Lasix Follow up CXR 04/19/17 Improved exam. Decreased prominence of pulmonary vasculature.Persistent cardiomegaly. Slight blunting right lateral gastric angle. IMPRESSION: Improved bibasilar infiltrative change and/or congestive failure. Moderate persistent cardiomegaly. Trace pleural fluid lateral right costophrenic angle. Patient was placed on observation in the hospital with subjective shortness of breath improving after Furosemide. Patient received oxygen in the hospital but was not oxygen dependent. Patient received nebulizer treatments but no significant wheezing Patient's Discharge Instructions Dyspnea in setting of history of congestive heart failure but does not appear to have had an acute episode CKD with creatinine 1.67 on admission but rody Furosemide. Patient will be discharged on Furosemide 20 mg daily but will need to follow up with his outpatient doctor for adjustment of Furosemide to avoid kidney injury and dehydration Patient advised to limit fluid intake of sodas and drink water instead if thirsty Patient is on albuterol at home, continue this medication if shortness of breath with wheezing continue home oxygen at night Patient was hypertensive in the hospital Continue home blood pressure medications for hypertension amlodipine, enalapril , carvedilol Continue home dose Aspart and Lantus for Diabetes Follow up appointment 04/22/2017 9:00 AM Pino Hoover MD Pulmonary Medicine, [facility] 04/28/2017 2:20 PM Mabel Butts MD Internal Medicine [facility] Call your Primary Care doctor if any of the following symptoms or problems start or get worse: * Shortness of breath or difficulty breathing * Wake up at night short of breath * Chest pain * Cough * Swelling of your hands, feet, or legs * More fatigued or tired with your normal activity * Palpitations - sudden fast heart beats WEIGHT * Weigh yourself every morning after using the bathroom. * Use the same scale. * Wear the same amount of clothing. * Write your weight down on a chart. * Call your Primary Care doctor if you gain more than 2-3 pounds in 1-2 days. MEDICATIONS * Use this discharge instruction sheet for medication instructions. * Take your medications at the time your doctor ordered. * Do not skip a dose of your medicines. * If you miss a dose of medicine, take it as soon as possible, but DO NOT DOUBLE A DOSE. * Read your medicine information when you get home. * Know all of the side effects of your medicine. If in doubt, ask your pharmacist * Call your Primary Care doctor's office if you have any side effects. * Be sure all of your doctors know what medicine and herbs you take (including cold, flu, and herbal medicine). Take the following with you to your follow-up doctor appointments: * Weight Chart * Medication List * List of questions Do not drink excessive alcohol, beer or wine. Current Hospital Diet Patient's current hospital diet: Diabetes Type 2 Diet Discharge Diet Recommended Diet: Low Sodium Diet (2gm Na), Diabetes Type 2 Diet Fluid Restriction: 1500 ml (6 cups) Pending Studies Studies pending at discharge: no Laboratory Results 04/19/17 07:08 Red Blood Count 4.11, Mean Corpuscular Volume 82.7, Mean Corpuscular Hemoglobin 28.0, Mean Corpuscular Hemoglobin Concent 33.8, Mean Platelet Volume 9.3, Neutrophils (%) (Auto) 62.8, Lymphocytes (%) (Auto) 24.9, Monocytes (%) (Auto) 9.4, Eosinophils (%) (Auto) 2.4, Basophils (%) (Auto) 0.3, Neutrophils # (Auto) 3.61, Lymphocytes # (Auto) 1.43, Monocytes # (Auto) 0.54, Eosinophils # (Auto) 0.14, Basophils # (Auto) 0.02 04/19/17 07:08 Test 04/18/17 00:00 04/18/17 06:50 04/19/17 07:08 04/19/17 11:21 Influenza Type A Antigen Neg for Influ A (NEG) Influenza Type B Antigen Neg for Influ B (NEG) Direct Bilirubin 0.1 mg/dl (0-0.2) Lipase 296 U/L (73-393) Thyroid Stimulating Hormone (TSH) 2.590 uIu/ml (0.300-4.500) White Blood Count 5.75 K/uL (4.8-10.8) Red Blood Count 4.11 M/uL (4.7-6.1) Hemoglobin 11.5 g/dL (14.0-18.0) Hematocrit 34.0 % (42-52) Mean Corpuscular Volume 82.7 fL (80-100) Mean Corpuscular Hemoglobin 28.0 pg (25-34) Mean Corpuscular Hemoglobin Concent 33.8 g/dl (32-36) Platelet Count 118 K/uL (130-400) Mean Platelet Volume 9.3 fL (7.4-10.4) Neutrophils (%) (Auto) 62.8 % Lymphocytes (%) (Auto) 24.9 % Monocytes (%) (Auto) 9.4 % Eosinophils (%) (Auto) 2.4 % Basophils (%) (Auto) 0.3 % Neutrophils # (Auto) 3.61 K/uL (1.4-6.5) Lymphocytes # (Auto) 1.43 K/uL (1.2-3.4) Monocytes # (Auto) 0.54 K/uL (0.11-0.59) Eosinophils # (Auto) 0.14 K/uL (0-0.5) Basophils # (Auto) 0.02 K/uL (0-0.2) RDW Standard Deviation 38.2 fL (36.4-46.3) RDW Coefficient of Variation 12.7 % (11.5-14.5) Immature Granulocyte % (Auto) 0.2 % Immature Granulocyte # (Auto) 0.01 K/uL (0.00-0.02) Anion Gap 6.0 mmol/L (3-11) Est Creatinine Clear Calc Drug Dose 44.9 ml/min Estimated GFR () 39.7 Estimated GFR (Non- 34.3 BUN/Creatinine Ratio 16.5 (10-20) Calcium Level 8.6 mg/dl (8.5-10.1) Total Bilirubin 0.5 mg/dl (0.2-1) Aspartate Amino Transf (AST/SGOT) 15 U/L (15-37) Alanine Aminotransferase (ALT/SGPT) 21 U/L (12-78) Alkaline Phosphatase 71 U/L (45-117) Pro-B-Type Natriuretic Peptide 1703 pg/ml (0-900) Total Protein 5.9 gm/dl (6.4-8.2) Albumin 2.7 gm/dl (3.4-5.0) Globulin 3.2 gm/dl (2.5-4.0) Albumin/Globulin Ratio 0.9 (0.9-2) Procalcitonin 0.10 ng/ml (0-0.5) Bedside Glucose 151 mg/dl (70-99) Hemoglobin A1c Test 03/23/17 06:49 Range/Units Estimated Average Glucose 203 mg/dl Hemoglobin A1c 8.7 H 4.5-5.6 % Medical Emergencies . Who to Call and When: Call 911 or go to the Emergency Room if: * If at any time you feel your situation is an emergency * You have tightness or pain in your chest that does not go away with rest or Nitroglycerin * You are very short of breath even with rest . Non-Emergent Contact Non-Emergency issues call your: Primary Care Provider, Advertising Associate Call Non-Emergent contact if: you have any medication questions . . "Provider Documentation" section prepared by Richard Larkin. . VTE Core Measure Inpt VTE Proph given/why not?: SCD's
--- NOTE | 2017-04-19 12:02 | Discharge Summary ---
Discharge Summary Date of Service Apr 19, 2017. Discharge Summary Admission Date: Apr 18, 2017 at 08:18 Discharge Date: Apr 19, 2017 Discharge Disposition: Home Principal Diagnosis: dyspnea, chronic heart failure, HTN, diabetes, ckd, thrombocytopenia Medication Reconciliation New Medications: Furosemide (Furosemide) 20 Mg Tab 20 MG PO QAM for 30 Days, #30 TAB Continued Medications: Albuterol (Ventolin Hfa) 60 Puffs/5400 Mcg Aers 2 PUFFS INH Q4H PRN for SOB/Wheezing Amlodipine (Norvasc) 10 Mg Tab 10 MG PO DAILY for 30 Days, #30 TAB 2 Refills Aspirin (Aspirin Ec) 81 Mg Tab 81 MG PO QAM Carvedilol (Carvedilol) 25 Mg Tab 12.5 MG PO BID Cholecalciferol (Vitamin D3) 2,000 Unit Tab 2000 INTER.UNIT PO QAM Enalapril Maleate (Enalapril Maleate) 20 Mg Tab 1 TAB PO NOON Gabapentin (Neurontin) 300 Mg Cap 300 MG PO QID Insulin Aspart (Novolog Flexpen) 100 Units/Ml Inj 7 UNITS SQ QAM Insulin Aspart (Novolog Flexpen) 100 Units/Ml Inj 14 UNITS SQ UD with lunch and dinner Insulin Glargine (Lantus Solostar) 100 Unit/Ml Inj 45 UNITS SC HS, PEN Isosorbide Dinitrate (Isordil) 20 Mg Tab 20 MG PO TID, TAB Pantoprazole (Protonix) 40 Mg Tab 40 MG PO QAM Prednisone (Prednisone) 20 Mg Tab 1 TAB PO DAILY for 3 Days, #3 TAB Rosuvastatin Calcium (Crestor) 40 Mg Tab 40 MG PO HS, TAB Discontinued Medications: Furosemide (Lasix) 20 Mg Tab 20 MG PO 2XWK TU, FRI Admission Information HPI (per Admitting provider): This is a 62 year old Male PMH of asthma hypertension, chronic systolic heart failure secondary to nonischemic cardiomyopathy, EF 40-44% from October 2016 echo and subsequent echo in March 2017 Ejection Fraction 35-40%, nonocclusive CAD, chronic left bundle branch block, moderate aortic valve stenosis, PFT in March 2017 Very mild obstructive small airways disease with no significant improvement after inhaled bronchodilator, chronic anemia , chronic renal insufficiency, DM2, insulin requiring, chronic thrombocytopenia who was discharged from hospitalization on March 24, 2017 and had ED presentation on 04/17/17 reporting shortness of breath. Patient hypertensive on admission withs systolic blood pressure above 170 Patient was treated with a nebulizer treatment and was expected to be discharged from the ED overnight in the data integration architect hours of but continued to report of shortness of breath to the AM emergency room physician shift. Was treated again with 1 nebulizer treatment and additional medication of 20 mg IV Lasix. Based on the Chest X ray in the AM there is Increasing bibasilar opacities in the setting of cardiomegaly concerning for worsening pulmonary edema When seen by hospitalist, patient breathing on room air and in no acute distress , speaking in full sentences, and was able to ambulate to the bathroom on his own without any additional oxygen support. Patient's saturation on room air was 89 to 92%. Lung exam with good air entry and no wheezing. Patient reports that he has been using home oxygen at night since hospital discharge from March. Denies using any oxygen during the day time. Describes a sedentary lifestyle and sits around at home. Reports that his breathing has been progressively worse over the course of months. Could not describe any acute provoking events for the subjective feeling of shortness of breath. Denies fevers, rhinorrhea, or flu like symptoms, or fevers, or chest pain. Does report some swelling of lower extremities of which there is 1 + pitting edema bilaterally. Patient also has elevated BNP of 1929. Patient also hypertensive with systolic blood pressure 184/104. Patient reports that he regularly takes his cardiovascular medications at home but not today while in emergency room. Physical Exam (per Admitting): General Appearance: no apparent distress, + pertinent finding (reports feeling shortness of breath) Head: normocephalic, atraumatic Eyes: normal inspection, EOMI ENT: hearing grossly normal, pharynx normal Neck: thyroid normal, no JVD, trachea midline Respiratory/Chest: chest non-tender, lungs clear, normal breath sounds, no respiratory distress, no accessory muscle use Cardiovascular: regular rate, rhythm Abdomen/GI: normal bowel sounds, non tender, soft, no organomegaly Back: normal inspection, no muscle spasm, normal range of motion Extremities/Musculoskelatal: normal inspection, no calf tenderness, normal range of motion, non-tender, + swelling (+ 1 lower extremity edema bilaterally) 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 Cardiac silhouette enlarged. Increased hazy bibasilar opacities, right greater than left. Trace bilateral pleural effusions may be present. No pneumothorax. Degenerative changes of the thoracic spine. Upper abdomen normal. Patient received Lasix Follow up CXR 04/19/17 Improved exam. Decreased prominence of pulmonary vasculature.Persistent cardiomegaly. Slight blunting right lateral gastric angle. IMPRESSION: Improved bibasilar infiltrative change and/or congestive failure. Moderate persistent cardiomegaly. Trace pleural fluid lateral right costophrenic angle. Patient was placed on observation in the hospital with subjective shortness of breath improving after Furosemide. Patient received oxygen in the hospital but was not oxygen dependent. Patient received nebulizer treatments but no significant wheezing Patient's Discharge Instructions Dyspnea in setting of history of congestive heart failure but does not appear to have had an acute episode CKD with creatinine 1.67 on admission but rody Furosemide. Patient will be discharged on Furosemide 20 mg daily but will need to follow up with his outpatient doctor for adjustment of Furosemide to avoid kidney injury and dehydration Patient advised to limit fluid intake of sodas and drink water instead if thirsty Patient is on albuterol at home, continue this medication if shortness of breath with wheezing continue home oxygen at night Patient was hypertensive in the hospital Continue home blood pressure medications for hypertension amlodipine, enalapril , carvedilol Continue home dose Aspart and Lantus for Diabetes Follow up appointment 04/22/2017 9:00 AM Pino Hoover MD Pulmonary Medicine, [facility] 04/28/2017 2:20 PM Mabel Butts MD Internal Medicine [facility] Total time spent on discharge = 60 minutes This includes examination of the patient, discharge planning, medication reconciliation, and communication with other providers. Discharge Instructions Call your Primary Care doctor if any of the following symptoms or problems start or get worse: Shortness of breath or difficulty breathing Wake up at night short of breath Chest pain Cough Swelling of your hands, feet, or legs More fatigued or tired with your normal activity Palpitations - sudden fast heart beats WEIGHT Weigh yourself every morning after using the bathroom. Use the same scale. Wear the same amount of clothing. Write your weight down on a chart. Call your Primary Care doctor if you gain more than 2-3 pounds in 1-2 days. MEDICATIONS Use this discharge instruction sheet for medication instructions. Take your medications at the time your doctor ordered. Do not skip a dose of your medicines. If you miss a dose of medicine, take it as soon as possible, but DO NOT DOUBLE A DOSE. Read your medicine information when you get home. Know all of the side effects of your medicine. If in doubt, ask your pharmacist Call your Primary Care doctor's office if you have any side effects. Be sure all of your doctors know what medicine and herbs you take (including cold, flu, and herbal medicine). Take the following with you to your follow-up doctor appointments: Weight Chart Medication List List of questions Do not drink excessive alcohol, beer or wine. Current Hospital Diet Patient's current hospital diet: Diabetes Type 2 Diet
[2017-04-19 12:48] VITALS: BP 120/77; PULSE 67; TEMP 37; O2SAT 92
== END 2017-04-19 13:24 | disposition home or self-care (01) ==
LOC: C.EDB 06:24 → C.MED 08:18 → ENRESERV 08:48
PROVIDERS: ADMIT Hospitalist; ATTEND Hospitalist
DX: I50.9 Heart failure, unspecified (principal); R06.02 Shortness of breath; J45.909 Unspecified asthma, uncomplicated; N18.3 Chronic kidney disease, stage 3 (moderate); E11.9 Type 2 diabetes mellitus without complications; E78.5 Hyperlipidemia, unspecified; Z83.3 Family history of diabetes mellitus; Z82.49 Family history of ischemic heart disease and other diseases of the circulatory system; Z79.82 Long term (current) use of aspirin; I12.9 Hypertensive chronic kidney disease with stage 1 through stage 4 chronic kidney disease, or unspecified chronic kidney disease; I42.9 Cardiomyopathy, unspecified

== ENCOUNTER 2017-04-23 03:09 | Emergency (ER) | payer BC ==
[~2017-04-23] VITALS: Ht 172.7 cm; Wt 114.3 kg
[~2017-04-23 03:09] MED LIST changes: -FURO-85 PO; +LSX20 PO; -PRED20TA PO
[2017-04-23 03:11] VITALS: TEMP 36.4; Ht 172.7 cm; Wt 114.3 kg
[2017-04-23] MEDS ORDERED: ALBUT/IPRATROP 3MG/0.5MG NEB 3 ML VIAL INH STA (03:26)
[2017-04-23 03:40] LABS: BASO % 0.3 %; BASO ABS # 0.02 K/uL (0-0.2); EOS % 1.2 %; EOS ABS # 0.09 K/uL (0-0.5); HEMATOCRIT 36.8 % (42-52); HEMOGLOBIN 12.2 g/dL (14.0-18.0); IG# 0.02 K/uL (0.00-0.02); LYMPH % 17.6 %; LYMPH ABS # 1.29 K/uL (1.2-3.4); MEAN CELL VOLUME 83.3 fL (80-100); MEAN CORPUSCULAR HEMOGLOBIN 27.6 pg (25-34); MEAN CORPUSCULAR HGB CONC 33.2 g/dl (32-36); MEAN PLATELET VOLUME 9.8 fL (7.4-10.4); MONO % 6.4 %; MONO ABS # 0.47 K/uL (0.11-0.59); NEUT % 74.2 %; NEUT ABS # 5.43 K/uL (1.4-6.5); PLATELET COUNT 140 K/uL (130-400); RED CELL DISTRIBUTION WIDTH CV 12.6 % (11.5-14.5); RED CELL DISTRIBUTION WIDTH SD 37.9 fL (36.4-46.3); WHITE BLOOD COUNT 7.32 K/uL (4.8-10.8)
[2017-04-23 03:47] LABS: CALCIUM 9.3 mg/dl (8.5-10.1); CREATININE 2.12 mg/dl (0.60-1.40); POTASSIUM 4.2 mmol/L (3.5-5.1)
[2017-04-23] MEDS ORDERED: FLUT1INH PO (03:47)
[2017-04-23] MEDS ORDERED: OXGN (03:47)
[2017-04-23] MEDS ORDERED: DULO60CA44 PO (03:47)
[2017-04-23 03:51] VITALS: O2SAT 93
[2017-04-23 04:01] LABS: INFLUENZA B ANTIGEN Neg for Influ B (NEG)
--- NOTE | 2017-04-23 04:08 | EMERGENCY ROOM VISIT NOTE ---
History First contact with patient: 03:13 Chief Complaint: RESPIRATORY PROBLEMS Stated Complaint: RESPIRATORY DISTRESS/CHEST PAIN Nursing Triage Summary: Patient arrived ALS for evaluation of shortness of breath. Patient reports he was here twice last week with the same symptoms. Tonight developed respiratory distress. Per EMS, patients oxygen saturation was low and he was placed on CPAP. Patient was also given 3 baby aspirin for EKG changes noted by EMS. Patient took a baby aspirin earlier in the day as well. Patient reports he saw his funeral limousine driver today and prescribed a new inhaler. History of Present Illness This patient is a 62-year-old male who presents via ALS for evaluation of shortness of breath. Patient was seen here 2 times last week for similar symptoms and did have one admission. The patient reports a history of asthma. He states that he has been short of breath for "quite a while." He states that he feels like he "can't get a breath." He states the symptoms have been ongoing for a few months. He reports he has had multiple tests performed and they are unsure why he is short of breath. He saw a funeral limousine driver yesterday and they started him on a daily inhaler. He reports that he uses his albuterol inhaler but he feels this makes his symptoms worse. He does report some pain in the center of his chest which has also been ongoing for several months. The patient states his symptoms are worse lying flat. He does wear 2 L of oxygen at night and as needed throughout the day. He denies any fevers or cough. Review of Systems A complete 10 point review of systems was reviewed with the patient with pertinent positives and negatives as per history of present illness. All else were negative. Past Medical/Surgical History Medical Problems: (1) Asthma (2) CAD (coronary artery disease) (3) Chest pain (4) CKD (chronic kidney disease), stage III (5) DM type 2 (diabetes mellitus, type 2) (6) Dyslipidemia (7) Hypertension (8) LBBB (left bundle branch block) (9) Mild aortic stenosis (10) Nonischemic cardiomyopathy (11) Respiratory failure, acute Surgical Problems: (1) H/O cardiac catheterization (2) S/p adrenal gland surgery Family History Diabetes mellitus SISTER BROTHER FH: CHF (congestive heart failure) MOTHER Hypertension SON Social History Smoking Status: Never Smoker Drug Use: none Marital Status: Housing Status: lives with significant other Occupation Status: retired Current/Historical Medications Scheduled Amlodipine (Norvasc), 10 MG PO DAILY Aspirin (Aspirin Ec), 81 MG PO QAM Carvedilol (Carvedilol), 12.5 MG PO BID Cholecalciferol (Vitamin D3), 2,000 INTER.UNIT PO QAM Duloxetine Hcl (Cymbalta), 60 MG PO DAILY Enalapril Maleate (Enalapril Maleate), 1 TAB PO NOON Fluticasone Furoate-Vilanterol (Breo Ellipta), 1 PUFF PO DAILY Furosemide (Furosemide), 20 MG PO QAM Gabapentin (Neurontin), 300 MG PO QID Home O2 Therapy (Oxygen), 2 LITERS NA HS Insulin Aspart (Novolog Flexpen), 7 UNITS SQ QAM Insulin Aspart (Novolog Flexpen), 14 UNITS SQ UD Insulin Glargine (Lantus Solostar), 45 UNITS SC HS Isosorbide Dinitrate (Isordil), 20 MG PO TID Pantoprazole (Protonix), 40 MG PO QAM Rosuvastatin Calcium (Crestor), 40 MG PO HS Scheduled PRN Albuterol (Ventolin Hfa), 2 PUFFS INH Q4H PRN for SOB/Wheezing Physical Exam Vital Signs Date Time Temp Pulse Resp B/P (MAP) Pulse Ox O2 Delivery O2 Flow Rate FiO2 04/23/17 04:35 60 22 159/86 94 Nasal Cannula 2.0 04/23/17 03:51 93 Nasal Cannula 2.0 04/23/17 03:20 92 Room Air 04/23/17 03:15 71 04/23/17 03:11 92 Room Air 04/23/17 03:11 36.4 71 25 144/93 92 Room Air Physical Exam VITALS: Vitals are noted on the nurse's note and reviewed by myself. Vital signs stable. GENERAL: This is a 62-year-old male, in no acute distress, nondiaphoretic, well- developed well-nourished. SKIN: The skin was without rashes. EARS: External auditory canals clear, tympanic membranes pearly morris without erythema or effusion bilaterally. EYES: Pupils equal round and reactive to light and accommodation. MOUTH: Mucous membranes moist. Tonsils are not enlarged. Pharynx without erythema or exudate. NECK: Supple without nuchal rigidity. No lymphadenopathy. HEART: Regular rate and rhythm. 2/6 systolic murmur at LSB. LUNGS: Patient is not tachypneic. No increased work of breathing noted. Clear to auscultation bilaterally without wheezes, rales or rhonchi. No retractions or accessory muscle use. NEURO: Patient was alert and oriented to person place and time. Medical Decision & Procedures ER Provider Diagnostic Interpretation: CHEST X-RAY: Bibasilar opacities similar to previous exams. Laboratory Results 04/23/17 02:25 Red Blood Count 4.42, Mean Corpuscular Volume 83.3, Mean Corpuscular Hemoglobin 27.6, Mean Corpuscular Hemoglobin Concent 33.2, Mean Platelet Volume 9.8, Neutrophils (%) (Auto) 74.2, Lymphocytes (%) (Auto) 17.6, Monocytes (%) (Auto) 6.4, Eosinophils (%) (Auto) 1.2, Basophils (%) (Auto) 0.3, Neutrophils # (Auto) 5.43, Lymphocytes # (Auto) 1.29, Monocytes # (Auto) 0.47, Eosinophils # (Auto) 0.09, Basophils # (Auto) 0.02 04/23/17 02:25 Test 04/23/17 02:25 04/23/17 03:30 White Blood Count 7.32 K/uL (4.8-10.8) Red Blood Count 4.42 M/uL (4.7-6.1) Hemoglobin 12.2 g/dL (14.0-18.0) Hematocrit 36.8 % (42-52) Mean Corpuscular Volume 83.3 fL (80-100) Mean Corpuscular Hemoglobin 27.6 pg (25-34) Mean Corpuscular Hemoglobin Concent 33.2 g/dl (32-36) Platelet Count 140 K/uL (130-400) Mean Platelet Volume 9.8 fL (7.4-10.4) Neutrophils (%) (Auto) 74.2 % Lymphocytes (%) (Auto) 17.6 % Monocytes (%) (Auto) 6.4 % Eosinophils (%) (Auto) 1.2 % Basophils (%) (Auto) 0.3 % Neutrophils # (Auto) 5.43 K/uL (1.4-6.5) Lymphocytes # (Auto) 1.29 K/uL (1.2-3.4) Monocytes # (Auto) 0.47 K/uL (0.11-0.59) Eosinophils # (Auto) 0.09 K/uL (0-0.5) Basophils # (Auto) 0.02 K/uL (0-0.2) RDW Standard Deviation 37.9 fL (36.4-46.3) RDW Coefficient of Variation 12.6 % (11.5-14.5) Immature Granulocyte % (Auto) 0.3 % Immature Granulocyte # (Auto) 0.02 K/uL (0.00-0.02) Anion Gap 5.0 mmol/L (3-11) Est Creatinine Clear Calc Drug Dose 43.8 ml/min Estimated GFR () 37.3 Estimated GFR (Non- 32.1 BUN/Creatinine Ratio 20.6 (10-20) Calcium Level 9.3 mg/dl (8.5-10.1) Troponin I 0.019 ng/ml (0-0.045) Beta-Hydroxybutyric Acid 0.64 mg/dL (0.2-2.81) Influenza Type A Antigen Neg for Influ A (NEG) Influenza Type B Antigen Neg for Influ B (NEG) Medications Administered Medications (Trade) Dose Ordered Sig/Larry Route Start Time Stop Time Status Last Admin Dose Admin Albuterol/ Ipratropium (Duoneb) 3 ml NOW STAT INH 04/23/17 03:26 04/23/17 03:28 DC 04/23/17 03:32 3 ML ECG Rate (beats per minute): 75 Rhythm: normal sinus Findings: LBBB, no acute ischemic change, no ectopy Comparison ECG Date: PACs no longer present ED Course The patient was evaluated as above. Labs were drawn and IV access was obtained. Patient was medicated with a Duo-neb treatment. Patient was reevaluated and was feeling much better. Discharge instructions were reviewed with the patient. The patient verbalized understanding of my assessment and treatment plan and was discharged home in good condition. Medical Decision Differential diagnosis includes CHF, pulmonary edema, pneumonia, pneumothorax, ACS, COPD, asthma, anxiety, among others. The patient is a 62-year-old male who presents today complaining of shortness of breath. Workup today shows no leukocytosis. Influenza testing is negative. Chest x-ray appears similar to previous with no focal consolidation. EKG is similar to a previous and shows a LBBB. Troponin is not elevated. Patient has had these symptoms of shortness of breath ongoing for the past several months. I reviewed the patient's previous hospitalization records. He has had extensive workup of his dyspnea, including PFTs which showed mild small airway obstruction. He has had an echocardiogram and does have cardiomyopathy with decreased EF. He was recently started on Lasix. He has had negative CT of the chest and negative VQ scan. The patient had a pulmonology visit yesterday and was started on a daily steroid and long acting beta agonist. He is going to be set up for a sleep study due to a history of ARPIT. The patient has supplemental oxygen at home. He had normal oxygen saturations on room air. There was no obvious shortness of breath. Based on the patient's presentation and work up, I feel the patient is stable for outpatient treatment. The patient was educated to return to the emergency department for any worsening of their current condition or new/concerning symptoms. He will follow up with his funeral limousine driver. Medication Reconcilliation Current Medication List: was personally reviewed by me Blood Pressure Screening Patient's blood pressure: Elevated blood pressure Blood pressure disposition: Elevated BP felt to be situational Impression Primary Impression: Dyspnea Departure Information Dispostion Home / Self-Care Condition GOOD Referrals Mabel Butts M.D. (PCP) Forms WORK / SCHOOL INSTRUCTIONS, HOME CARE DOCUMENTATION FORM, IMPORTANT VISIT INFORMATION Patient Instructions My [facility] [employer] Additional Instructions Use your oxygen and inhalers at home as needed for symptoms. Call your primary care provider and funeral limousine driver to schedule follow up. Return to the emergency department for any new/concerning symptoms. Problem Qualifiers Primary Impression: Dyspnea Dyspnea type: shortness of breath Qualified Codes: R06.02 - Shortness of breath
[2017-04-23 04:35] VITALS: BP 159/86; PULSE 60; O2SAT 94
--- NOTE | 2017-04-23 06:32 | DIAGNOSTIC IMAGING REPORT ---
CHEST ONE VIEW PORTABLE CLINICAL HISTORY: sob dyspnea COMPARISON STUDY: 04/19/2017 FINDINGS: Moderate cardiomegaly. Mild bibasilar parenchymal prominence with mild prominence of the pulmonary vasculature. Diaphragms are smooth. Costophrenic angles are sharp. IMPRESSION: Pulmonary venous congestion. Mild cardia megaly. The above report was generated using voice recognition software. It may contain grammatical, syntax or spelling errors. Electronically signed by: Billy Phillips M.D. 04/23/2017 6:31 AM Dictated Date/Time: 04/23/2017 6:30 AM
== END 2017-04-23 05:00 | disposition home or self-care (01) ==
LOC: EDBD 03:09 → C.EDB 03:11
DX: R06.02 Shortness of breath (principal); J45.909 Unspecified asthma, uncomplicated; E11.22 Type 2 diabetes mellitus with diabetic chronic kidney disease; N18.3 Chronic kidney disease, stage 3 (moderate); I12.9 Hypertensive chronic kidney disease with stage 1 through stage 4 chronic kidney disease, or unspecified chronic kidney disease; E78.5 Hyperlipidemia, unspecified; I25.10 Atherosclerotic heart disease of native coronary artery without angina pectoris; I42.0 Dilated cardiomyopathy; Z99.81 Dependence on supplemental oxygen; Z79.82 Long term (current) use of aspirin; Z79.51 Long term (current) use of inhaled steroids; Z79.4 Long term (current) use of insulin; Z82.49 Family history of ischemic heart disease and other diseases of the circulatory system; Z83.3 Family history of diabetes mellitus

== ENCOUNTER 2017-05-23 02:39 | Inpatient (IN) | payer BC, OTHER ==
[~2017-05-23] VITALS: Ht 172.7 cm; Wt 110.1 kg
[2017-05-23] VITALS (12 sets, daily range): BP systolic 92–135; BP diastolic 51–85; PULSE 54–98; TEMP 36.5–37.9; O2SAT 91–99; BMI 35.4
[~2017-05-23 02:39] MED LIST changes: -ASPI81TA28 PO; -CHOL20007 PO; -CRG25 PO; -NVLGI/PEN SQ; -NVLGIPEN SQ; +OXGN; -PANT40TA PO; -PRVHFAIN INH; -ROSU40TA PO
[2017-05-23] MEDS ORDERED: FUROSEMIDE 40 MG/4 ML VIAL IV STA ×2 (02:51→03:40)
[2017-05-23 02:57] LABS: HEMATOCRIT 37.9 % (42-52); HEMOGLOBIN 12.9 g/dL (14.0-18.0); IG# 0.02 K/uL (0.00-0.02); LYMPH % 4.9 %; LYMPH ABS # 0.31 K/uL (1.2-3.4); MEAN CORPUSCULAR HEMOGLOBIN 27.6 pg (25-34); MEAN PLATELET VOLUME 9.1 fL (7.4-10.4); MONO % 8.6 %; MONO ABS # 0.55 K/uL (0.11-0.59); NEUT % 86.2 %; NEUT ABS # 5.51 K/uL (1.4-6.5); PLATELET COUNT 130 K/uL (130-400); RED CELL DISTRIBUTION WIDTH CV 12.9 % (11.5-14.5); RED CELL DISTRIBUTION WIDTH SD 37.8 fL (36.4-46.3); WHITE BLOOD COUNT 6.39 K/uL (4.8-10.8)
[2017-05-23 03:33] LABS: ALBUMIN 3.3 gm/dl (3.4-5.0); CALCIUM 8.6 mg/dl (8.5-10.1); CKMB 4.4 ng/ml (0.5-3.6); CREATININE 2.38 mg/dl (0.60-1.40); POTASSIUM 4.8 mmol/L (3.5-5.1); TOTAL PROTEIN 7.4 gm/dl (6.4-8.2)
[2017-05-23] MEDS ORDERED: FUROSEMIDE INJ 20 MG in SYRINGE 0 ML IV STA (03:37)
[2017-05-23] MEDS ORDERED: ALBUT/IPRATROP 3MG/0.5MG NEB 3 ML VIAL INH STA (03:39)
[2017-05-23] MEDS ORDERED: INSULIN IV INFUSION PROTOCOL STA (03:54)
[2017-05-23] MEDS ORDERED: SEVERE STRESS LEVEL ONE (04:00)
[2017-05-23] MEDS ORDERED: INSULIN PROTOCOL GOAL RANGE ONE (04:00)
[2017-05-23] MEDS ORDERED: INSULIN GLARGINE SOLOSTAR 100 UNITS/ML 3 ML PEN SC STA (04:23)
[2017-05-23] MEDS ORDERED: METHYLPREDNISOLONE IV 20 MG in SYRINGE 0 ML IV STA (04:25)
[2017-05-23] MEDS ORDERED: LEVALBUTEROL/IPRATROPIUM NEB INH STA (04:25)
[2017-05-23] MEDS ORDERED: DOXYCYCLINE IV 100 MG in DEXTROSE 5% 100ML 100 ML IV STA (04:25)
[2017-05-23] MEDS ORDERED: PROCHLORPERAZINE INJ 5 MG in SYRINGE 4 ML IV PRN (04:30)
[2017-05-23] MEDS ORDERED: NITROGLYCERIN 0.4 MG SL PER TAB CHARGE SL PRN (04:30)
[2017-05-23] MEDS ORDERED: LEVALBUTEROL/IPRATROPIUM NEB INH PRN (04:30)
[2017-05-23] MEDS ORDERED: TRAMADOL HCL 50 MG TAB PO PRN (04:30)
[2017-05-23] MEDS ORDERED: HYDROmorphone INJ 0.5 MG/0.5 ML SYR IV PRN (04:30)
[2017-05-23 04:44] LABS: PTT PATIENT 24.5 SECONDS (21.0-31.0)
[2017-05-23] MEDS ORDERED: INSULIN HUMAN REGULAR IV BOLUS 4.5 UNIT in SYRINGE 0 ML IV ONE (04:45)
[2017-05-23] MEDS: INSULIN REGULAR 250 UNITS in SODIUM CHLORIDE 0.9% 250ML 250 ML IV SCH ×5 (04:54→19:06)
[2017-05-23] MEDS ORDERED: LEVALBUTEROL 1.25MG/0.5ML NEB INH STA (05:06)
[2017-05-23] MEDS ORDERED: IPRATROPIUM BROMIDE NEB SOLN 0.02% 2.5 ML VIAL INH STA (05:06)
[2017-05-23] MEDS ORDERED: IPRATROPIUM BROMIDE NEB SOLN 0.02% 2.5 ML VIAL INH PRN (05:15)
[2017-05-23] MEDS ORDERED: LEVALBUTEROL 1.25MG/0.5ML NEB INH PRN (05:15)
[2017-05-23] MEDS ORDERED: GUAIFENESIN 600 MG TABCR PO ONE (05:45)
[2017-05-23 05:48] LABS: INFLUENZA B ANTIGEN Neg for Influ B (NEG)
[2017-05-23] MEDS ORDERED: OSELTAMIVIR PHOSPHATE SUSP 30 MG/5 ML UDP PO ONE (07:00)
[2017-05-23] MEDS: IPRATROPIUM BROMIDE NEB SOLN 0.02% 2.5 ML VIAL INH SCH ×3 (07:01→19:35)
[2017-05-23] MEDS: LEVALBUTEROL 1.25MG/0.5ML NEB INH SCH ×3 (07:01→19:35)
[2017-05-23] MEDS: ISOSORBIDE DINITRATE 20 MG TAB PO SCH ×4 (07:44→19:09)
[2017-05-23] MEDS: GABAPENTIN 100 MG CAP PO SCH ×3 (07:45→21:09)
[2017-05-23] MEDS: DULOXETINE HCL 60 MG CAP PO SCH (07:45)
[2017-05-23] MEDS: PANTOprazole SOD 40 MG TAB PO SCH (07:46)
[2017-05-23] MEDS: ASPIRIN 81 MG ECTAB PO SCH (07:46)
[2017-05-23] MEDS: CARVEDILOL 12.5 MG TAB PO SCH ×2 (07:46→21:00)
[2017-05-23] MEDS: AMLODIPINE BESYLATE 5 MG TAB PO SCH (07:46)
[2017-05-23] MEDS: INSULIN ASPART 100 UNITS/ML 3 ML PEN SC SCH ×3 (08:00→20:52)
--- NOTE | 2017-05-23 08:59 | DIAGNOSTIC IMAGING REPORT ---
CHEST ONE VIEW PORTABLE CLINICAL HISTORY: SOB X 3 DAYS COMPARISON STUDY: Chest radiograph April 23, [address] December 21, 2016. FINDINGS: There is no pneumothorax. There is a suspected trace right pleural effusion. Moderate cardiomegaly is noted. Bilateral airspace opacities and interstitial thickening have developed. There is no cavitation. IMPRESSION: 1. Interval development of bilateral airspace opacities and interstitial thickening. The findings favor bilateral pneumonia however interstitial and alveolar pulmonary edema could appear similar. Radiographic follow up is recommended. 2. Trace right pleural effusion. 3. Moderate cardiomegaly. Electronically signed by: Balwinder Juarez M.D. 05/23/2017 8:58 AM Dictated Date/Time: 05/23/2017 8:56 AM
[2017-05-23] MEDS ORDERED: FUROSEMIDE INJ 40 MG in SYRINGE 0 ML IV SCH (09:00)
[2017-05-23] MEDS ORDERED: INSULIN ASPART 100 UNITS/ML 3 ML PEN SC SCH ×2 (09:00→19:20)
[2017-05-23] MEDS ORDERED: LEVALBUTEROL/IPRATROPIUM NEB INH SCH (09:00)
[2017-05-23] MEDS ORDERED: MAGNESIUM SULFATE 1GM / D5W 1 GM in PREMIXED IN D5W 100 ML IV ONE (09:00)
[2017-05-23 09:08] LABS: CALCIUM 8.6 mg/dl (8.5-10.1); CREATININE 2.43 mg/dl (0.60-1.40); POTASSIUM 3.7 mmol/L (3.5-5.1)
[2017-05-23 09:29] LABS: HEMOGLOBIN A1C 9.2 % (4.5-5.6)
--- NOTE | 2017-05-23 09:30 | HISTORY & PHYSICAL EXAMINATION ---
DATE OF ADMISSION: 05/23/2017 PRIMARY CARE DOCTOR: Mabel Butts MD. CHIEF COMPLAINT: Shortness of breath. HISTORY OF PRESENT ILLNESS: History obtained from patient and records. Medical history significant for chronic systolic heart failure secondary to nonischemic cardiomyopathy, EF of 40% from 2D echo from March 2017, asthma, COPD as per records, aortic stenosis, hypertension, DM 2 insulin requiring, chronic renal insufficiency (baseline creatinine of 1.9-2), chronic anemia (baseline hemoglobin of 11-12), chronic thrombocytopenia chronic left bundle branch block, history of nonocclusive CAD as per records, DM 2, insulin requiring. Recent confinement last March 2017 for shortness of breath, Few days' history of flu-like symptoms, dry cough symptoms, unable to expectorate, symptoms not relieved by inhalers. Denies fluid retention, weight stable as per patient, chest pain with coughing. Denies aspiration. Claims to be compliant with the medications. Denies dietary indiscretion. May have been around sick contacts as he has a son who is currently confined at [facility]. He was brought to the Emergency Room, noted to be in respiratory distress. BiPAP started, Lasix given for CHF. MEDICAL HISTORY: As above. A 2D echo from March 2017 showed EF 35%, moderate reduced systolic function. Moderate aortic stenosis. Seen by [facility] Pulmonology April 2017 for evaluation of worsening dyspnea. Considerations included asthma, COPD, likely untreated obstructive sleep apnea. SURGERIES: He has had adrenal gland surgery. HOME MEDICATIONS: Include aspirin, Ventolin, Norvasc, vitamin D3, carvedilol, Cymbalta, enalapril, Ellipta, Lasix, Neurontin, oxygen, NovoLog, insulin, Lantus, Isordil, Protonix, Crestor, Norvasc. ALLERGIES: No known drug allergies. FAMILY HISTORY: Diabetes. PERSONAL AND SOCIAL HISTORY: Nonsmoker, no chronic intake of alcoholic beverages. 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 REVIEW OF SYSTEMS: As per HPI. All 10 systems reviewed. All other ROS negative. PHYSICAL EXAMINATION: VITAL SIGNS: Blood pressure was noted to be 169/110, pulse rate 91, RR 32, temperature 37.9, sats 85 on room air, later 93 on BiPAP. GENERAL: Noted to be obese, respiratory distress. loquacious. SKIN: Pallor. Warm. HEENT: Alopecia. Pale palpebral conjunctivae. No ptosis. Dry buccal mucosa. BiPAP in place NECK: Supple. No tenderness. LUNGS: Decreased breath sounds. Expiratory wheezes. HEART: Regular rate and rhythm. Systolic murmur. ABDOMEN: Some distention, nontender. EXTREMITIES: minimal lower extremity edema. No tenderness. No gross deformities. NEUROLOGIC: Coherent. No gross focality. LABORATORY DATA: Hemoglobin was noted to be 12.9, hematocrit 37.9, white cell count 6.3, platelets noted to be 130. Sodium noted to be 136, potassium 4.8, , serum osmolality 309, BUN 15, creatinine 2.38. Glucose 554, corrected sodium was 136.9 troponin noted to be 0.035. Venous blood gas showed pH 7.30, pCO2 42. (2 unsuccessful ABG draw attempts) Flu test positive. Hemoglobin A1c from March 2017 was 8.7. EKG as per my interpretation, rate 90, normal sinus rhythm, LAD, LAFB, left bundle branch block. PVCs, Chest x-ray as per my interpretation bilateral congestion, cardiomegaly. ASSESSMENT: 1. Acute hypoxemic respiratory failure secondary to decompensated heart failure secondary to bronchitis/flu pneumonia no sepsis. 2. hx systolic heart failure 2 to non-ischemic cardiomyopathy EF 40% 3. Asthma/chronic obstructive pulmonary disease as per records/ possible untreated ARPIT as per recent outpatient Pulmonary evaluation. Possible exacerbation of chronic lung disease 4. Hyperglycemic hyperosmolar syndrome secondary to stress of illness/? compliance DM2, insulin requiring, suboptimal control as of recent outpatient HgA1c 8.7 in March 2017. moderate aortic stenosis. 5. Hypertension, stable. 6. hx nonocclusive CAD as per records 7. Chronic left bundle branch block 8. Acute renal failure on chronic renal insufficiency secondary to illness. 9. Chronic anemia secondary to kidney disease, hemoglobin at baseline. 10. Chronic thrombocytopenia. PLAN: PCU continue BiPAP. Doxycycline, low dose Solu-Medrol 1 dose now. May benefit from additional steroids pending response to initial dose nebs, RTC, p.r.n. Tamiflu dose per renal function Lasix dosed for renal function. Strict IOS, daily weights, CHF education Cardiology consult RE decompensated heart failure Monitor renal function while on diuretic Rx ; Hold home ACEI until creatinine at baseline. IV insulin drip overlapping with basal insulin. BG goal 150-200 Discontinue IV insulin and replace with ISS once blood sugar less than 200. Clear liquids while on BG > 200, advance diet when blood sugar less than 200. May need Pharmacy glycemic control consult. Diabetic education. Check hemoglobin A1c. PT OT eval DVT prophylaxis, SCDs RE thrombocytopenia. Full code. Total critical care time was 60 minutes. MTDD
[2017-05-23] MEDS ORDERED: PHARMACY GLYCEMIC MGMT CONSULT SCH (09:48)
--- NOTE | 2017-05-23 14:06 | Cardiology Consultation ---
Cardiology Consultation Date of Consultation: May 23, 2017 History of Present Illness Patient is a 62 year old male seen in cardiology consultation per the request of Dr. Tyler for the evaluation of congestive heart failure. The patient has a known history of nonischemic cardiomyopathy and left bundle branch block. He previously been hospitalized with acute systolic heart failure decompensations on 2 separate occasions in March 2017. Apparently the patient has been feeling poorly for the last few days for at least 3 days prior to presenting to the emergency room overnight he has had a cough and yesterday he was noted to have a low-grade fever. 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 His initial vital signs taken on 05/23/17 at 2:46 AM included a pulse oximetry reading of 85%. He was placed on BiPAP support and received 40 mg of IV furosemide at 3:05 AM and another 20 mg at 4:29 AM. At 10: 34 AM he received an additional dose of 40 mg. Per his recorded intake and output summary, he has had 1.3 L of urine output thus far. He had a Reyes catheter placed earlier this morning that was subsequently removed and nursing is in the process of replacing it. The patient is sitting upright during my exam of him in room 221. He is on BiPAP. He was easily aroused. He described having had transient midline chest discomfort that was associated with cough and it sounds as though this is musculoskeletal. He notes no other recent chest pains. He tested positive for influenza a thus far received a single dose of Tamiflu with future doses on hold given his renal insufficiency. Past Medical/Surgical History Problem List: Medical Problems: (1) Asthma (2) CAD (coronary artery disease) (3) Chest pain (4) CKD (chronic kidney disease), stage III (5) DM type 2 (diabetes mellitus, type 2) (6) Dyslipidemia (7) Hypertension (8) LBBB (left bundle branch block) (9) Mild aortic stenosis (10) Nonischemic cardiomyopathy (11) Respiratory failure, acute Surgical Problems: (1) H/O cardiac catheterization (2) S/p adrenal gland surgery History Past Medical History: 1. Nonischemic cardiomyopathy, with nonobstructive coronary artery disease noted on cardiac catheterization in June 2016 with no significant stenosis noted at that time of a 50% circumflex obtuse marginal stenosis -Most recent transthoracic echocardiogram performed was at [facility] on 03/21 with septal wall motion abnormality consistent with left bundle branch block and moderate global hypokinesis otherwise, and moderate LV systolic dysfunction ejection fraction 35-40% 2. Moderate aortic valve stenosis based on echocardiogram March 2017 3. Chronic left bundle branch block 4. Left ventricular hypertrophy 5. Type 2 diabetes mellitus with neuropathy 6. Dyslipidemia 7. Stage III chronic kidney disease at baseline 8. Hypertension Past Surgical History: 1. History of cardiac catheterization on 3 separate occasions 2. Kidney and ureter surgery Social History: Lifelong nonsmoker. He is is and lives with his . No past alcohol use Family History: Mother with history of congestive heart failure, details unknown Review Of Systems Review of systems notable for shortness of breath, cough, and fever otherwise a 10 point review of systems is negative Allergies Coded Allergies: No Known Allergies (Verified , 05/23/17) Medications Reported Home Medications Medications Dose Route/Sig Max Daily Dose Days Date Category Dose Instructions Lasix (Furosemide) 20 Mg Tab 20 Mg PO QAM 05/23/17 Reported Norvasc (Amlodipine Besylate) 10 Mg Tab 10 Mg PO DAILY 05/23/17 Reported Breo Ellipta (Fluticasone Furoate-Vilanterol) 1 Inh Inh 1 Puff PO DAILY 04/23/17 Reported Cymbalta (Duloxetine Hcl) 60 Mg Cap 60 Mg PO DAILY 04/23/17 Reported Oxygen Gas 2 Liters NA HS 04/23/17 Reported Protonix (Pantoprazole Sodium) 40 Mg Tab 40 Mg PO QAM 11/17/16 Reported Isordil (Isosorbide Dinitrate) 20 Mg Tab 20 Mg PO TID 10/06/16 Reported Enalapril Maleate 20 Mg Tab 1 Tab PO NOON 06/19/16 Reported Ventolin Hfa (Albuterol) 60 Puffs/5400 Mcg Aers 2 Puffs INH Q4H PRN 06/19/16 Reported Aspirin Ec (Aspirin) 81 Mg Tab 81 Mg PO QAM 06/19/16 Reported Vitamin D3 (Cholecalciferol) 2,000 Unit Tab 2,000 Inter.unit PO QAM 06/19/16 Reported Lantus Solostar (Insulin Glargine) 100 Unit/Ml Inj 45 Units SC HS 06/19/16 Reported Carvedilol 25 Mg Tab 12.5 Mg PO BID 06/19/16 Reported Crestor (Rosuvastatin Calcium) 40 Mg Tab 40 Mg PO HS 06/19/16 Reported Neurontin (Gabapentin) 300 Mg Cap 300 Mg PO QID 06/19/16 Reported Novolog Flexpen (Insulin Aspart) 100 Units/Ml Inj 14 Units SQ UD 06/19/16 Reported with lunch and dinner Novolog Flexpen (Insulin Aspart) 100 Units/Ml Inj 7 Units SQ QAM 06/19/16 Reported Physical Exam Vital Signs (Last 8hrs): Last 8 Hrs Date Time Temp Pulse Resp B/P (MAP) Pulse Ox O2 Delivery O2 Flow Rate FiO2 05/23/17 11:45 36.5 71 18 98/59 (72) 93 BiPAP 40 05/23/17 08:00 37.5 88 18 129/76 (93) 96 05/23/17 07:01 86 28 91 BiPAP/CPAP 40 05/23/17 07:01 86 91 40 05/23/17 06:36 37.9 97 20 135/85 97 BiPAP 40.0 General Appearance: Alert and Oriented x3. Acutely ill Head: Normocephalic Atraumatic. Eyes: PERRLA, EOMI, conjunctiva and sclera clear Neck: Supple. No carotid bruits noted. No JVD. No HJD. Respiratory: Bibasilar rales, coarse breath sounds with coughing Cardiovascular: Reg rate and rhythm. Unable to exclude murmur due to the BiPAP noises Abdomen: Normal bowel sounds, soft nontender. no abdominal bruits. Extremities: Trace lower extremity edema Neuro: No focal deficits. Psychiatric: Normal affect. Data See above for pertinent positives & negatives. A total of 10 systems reviewed and were otherwise negative. EKG reveals sinus rhythm with first-degree AV block, left bundle branch block, frequent PACs Assessment & Plan Impression: 62-year-old male 1. Acute influenza A 2. Superimposed acute systolic heart failure decompensation, history of left bundle branch block, nonischemic cardiomyopathy, LVEF 30-40% March 2017 3. Acute kidney injury on stage III chronic kidney disease Recommendations: The patient's troponin trended up to 1.24 ng/ml this am. Although he does have chest discomfort, this is clearly musculoskeletal and related to his coughing and I do not think it is floor representative of angina. His troponin elevation is likely reflective of congestive heart failure rather than acute intracoronary plaque rupture, and for now I recommend ongoing treatment of his influenza, suspected superimposed pneumonia, and heart failure decompensation and I do not think that systemic anticoagulation with heparin is indicated. Based on his prior hospital stay in March, his baseline creatinine is typically between 1.76 and 2 g/dl with acute worsening to 2.38 and 2.43 ng/ml. Of course we have to be somewhat judicious with the administration of furosemide , but I think that overall his kidney function will improve after diuresis with hopes of getting his cardiac status on a better place in the starling curve. Reyes catheter is going to be placed for better observation of his intake and output and to minimize his exertion because he is acutely ill. Will continue his current cardiac regimen including amlodipine, aspirin, carvedilol, furosemide 40 mg IV daily,and rosuvastatin. He is on Tamiflu adjusted for his renal function to 30 mg daily. Add SQ heparin for DVT prophylaxis.
[2017-05-23] MEDS ORDERED: DOXYCYCLINE HYCLATE 100 MG CAP PO STA (14:20)
[2017-05-23] MEDS ORDERED: CEFTRIAXONE SOD INJ 1 GM in DEXTROSE 5% ADD-VANTAGE 50ML 50 ML IV SCH (14:30)
[2017-05-23] MEDS ORDERED: CEFEPIME IV 2,000 MG in DEXTROSE 5% 100ML 100 ML IV SCH (14:30)
--- NOTE | 2017-05-23 15:22 | Pharmacy Progress Note ---
Glycemic Control Intl Consult Date of Service May 23, 2017. Scope Glycemic Pharmacist consulted by Dr Desai on 05/23/17 for glycemic control and to write orders per [facility] inpatient glycemic control protocol Objective Weight (Kilograms): 105.500 Accuchecks BSG (last 24hrs): Test 05/23/17 02:40 05/23/17 05:38 05/23/17 06:45 05/23/17 07:51 Random Glucose 554 mg/dl (70-99) Bedside Glucose 423 mg/dl (70-99) 311 mg/dl (70-99) 279 mg/dl (70-99) Test 05/23/17 08:06 05/23/17 08:50 05/23/17 10:04 05/23/17 11:08 Random Glucose 222 mg/dl (70-99) Bedside Glucose 226 mg/dl (70-99) 171 mg/dl (70-99) 135 mg/dl (70-99) Test 05/23/17 12:01 05/23/17 13:15 05/23/17 14:34 Bedside Glucose 170 mg/dl (70-99) 220 mg/dl (70-99) 216 mg/dl (70-99) Laboratory Data (last 24hrs) Test 05/23/17 02:40 05/23/17 08:06 Anion Gap 12.0 mmol/L 9.0 mmol/L BUN/Creatinine Ratio 21.4 21.8 Blood Urea Nitrogen 51 mg/dl 53 mg/dl Creatinine 2.38 mg/dl 2.43 mg/dl Hemoglobin A1c 9.2 % Potassium Level 4.8 mmol/L 3.7 mmol/L Sodium Level 126 mmol/L 131 mmol/L White Blood Count 6.39 K/uL Red Blood Count 4.68 M/uL Hemoglobin 12.9 g/dL Hematocrit 37.9 % Mean Corpuscular Volume 81.0 fL Mean Corpuscular Hemoglobin 27.6 pg Mean Corpuscular Hemoglobin Concent 34.0 g/dl Platelet Count 130 K/uL Mean Platelet Volume 9.1 fL Neutrophils (%) (Auto) 86.2 % Lymphocytes (%) (Auto) 4.9 % Monocytes (%) (Auto) 8.6 % Eosinophils (%) (Auto) 0.0 % Basophils (%) (Auto) 0.0 % Neutrophils # (Auto) 5.51 K/uL Lymphocytes # (Auto) 0.31 K/uL Monocytes # (Auto) 0.55 K/uL Eosinophils # (Auto) 0.00 K/uL Basophils # (Auto) 0.00 K/uL HbA1c Test 05/23/17 02:40 Hemoglobin A1c 9.2 % (4.5-5.6) H Recent Pertinent Medications Outpatient Anti-diabetic Regimen: * Novolog with meals - 7 units breakfast, 14 units lunch and dinner * Lantus 45 units HS * A1c = 9.2 % 05/23/17 The patient is currently receiving: * Basal insulin: Lantus 60 units every 24 hours * IV insulin drip per severe stress protocol Goal Range: Low 140 mg/dL - High 180 mg/dL Risk Factors for Insulin Resistance: * Steroids: Solu-medrol 20mg IV x1 this morning * Infection: Doxycycline & Tamiflu * Diet: Clears Assessment & Plan ASSESSMENT: * 62 year old male, uncontrolled type 2 diabetic, a1c 9.2% * Acute hypoxemic respiratory failure secondary to decompensated heart failure, secondary to bronchitis/flu pneumonia, no sepsis * Patient started on insulin drip this morning for BSGs in 400s, BSGs trending down to goal, but will continue until pt stays within goal range. * Pt did receive dose of Lantus this morning PLAN FOR INPATIENT GLYCEMIC CONTROL: * Continue IV insulin infusion per severe stress protocol * Goal Range 140 - 180 mg/dl * In the critical care setting, continuous IV insulin infusion has been shown to be the best method for achieving glycemic targets. * May be able to transition off this evening if BSGs within goal per evening shift pharmacist * Fixed carb ratio on insulin drip - 1 unit per 5 grams CHO consumed -- tightened after lunch to 1 unit per 4 grams CHO consumed * Basal insulin with LANTUS 60 units SQ daily * Please note that the plan above was derived based on current level of insulin resistance and hospital stress. These recommendations are appropriate for inpatient admission only. Plan of care upon discharge will need to be reassessed to avoid potential outpatient hypo/hyperglycemia. Thank you.
[2017-05-23] MEDS: CEFEPIME IV 2,000 MG in SYRINGE 7.5 ML IV SCH (15:34)
[2017-05-23] MEDS: INSULIN GLARGINE SOLOSTAR 100 UNITS/ML 3 ML PEN SC SCH (15:38)
[2017-05-23] MEDS ORDERED: FUROSEMIDE INJ 60 MG in SYRINGE 0 ML IV ONE (16:00)
--- NOTE | 2017-05-23 19:39 | Progress Note ---
Internal Med Progress Note Date of Service: May 23, 2017. Provider Documentation: SUBJECTIVE: has cough and sob earlier sob is better later afebrile had chest pain i lower chest yesterday but resolved now hemodynamics stable OBJECTIVE: Vital Signs-as noted below Exam: General-alert and oriented. on bipap ENT-Normal hearing Neck-no neck masses Lungs-cta b/l no wheezing mild bilateral crackles Heart-S1 and S2 heard regular rate and rhythm, no murmurs Abdomen-soft bowel sounds present no tenderness no distension Extremities-trace pedal edema no erythema Neuro-alert and awake moves extremities Lab data as noted below. ASSESSMENT & PLAN: 1. Acute hypoxemic respiratory failure secondary to decompensated heart failure secondary to bronchitis/flu pneumonia on Tamiflu on iv cefepime and doxycycline for any superimposed bacterial pneumonia' lactic acid normal nebs bipap close monitor hx systolic heart failure 2 to non-ischemic cardiomyopathy EF 40% on iv Lasix 40mg daily' appreciate cardiology inputs Elevated troponin mostly demand ischemia as per cardiology close f/u. Asthma/chronic obstructive pulmonary disease as per records/ possible untreated [facility] as per recent outpatient Pulmonary evaluation. Possible exacerbation of chronic lung disease on nebs bipaP Hyperglycemic hyperosmolar syndrome secondary to stress of illness/? compliance DM2, insulin requiring, suboptimal control as of recent outpatient HgA1c 8.7 ON Insulin gtt. lantus and iss will monitor. Hypertension,home meds with hold parameters. hx nonocclusive CAD as per records Home meds. Chronic left bundle branch block Acute renal failure on chronic renal insufficiency secondary to illness. baseline cr 1.7 to 1.9 cr 2.4 today will f/u labs on lasix. Chronic anemia secondary to kidney disease, hemoglobin at baseline. will f/ulabs. Chronic thrombocytopenia. will f/u labs Dvt px scds disposition close monitor in tele Vital Signs: Date Time Temp Pulse Resp B/P (MAP) Pulse Ox O2 Delivery O2 Flow Rate FiO2 05/23/17 19:20 36.5 55 24 92/55 (67) 97 05/23/17 16:41 36.8 86 18 104/69 (81) 95 05/23/17 16:00 BiPAP 40 05/23/17 14:14 61 14 99 BiPAP/CPAP 40 05/23/17 14:14 61 99 40 05/23/17 12:00 BiPAP 40 05/23/17 11:45 36.5 71 18 98/59 (72) 93 BiPAP 40 05/23/17 08:00 37.5 88 18 129/76 (93) 96 05/23/17 07:30 BiPAP 40 05/23/17 07:01 86 28 91 BiPAP/CPAP 40 05/23/17 07:01 86 91 40 05/23/17 06:36 37.9 97 20 135/85 97 BiPAP 40.0 05/23/17 05:38 93 94 40 05/23/17 05:09 84 24 133/83 92 BiPAP 40 05/23/17 04:52 93 18 92 BiPAP/CPAP 40 05/23/17 04:39 93 26 140/88 91 BiPAP 40 05/23/17 04:09 105 22 157/109 95 BiPAP 40 05/23/17 03:39 106 16 180/101 96 BiPAP 40 05/23/17 03:09 89 26 152/93 95 BiPAP 40 05/23/17 02:55 93 05/23/17 02:50 93 BiPAP 40 05/23/17 02:50 98 96 40 05/23/17 02:50 90 24 152/93 93 BiPAP 40 05/23/17 02:46 85 Room Air 05/23/17 02:46 85 Room Air 05/23/17 02:46 37.1 91 32 169/110 85 Nasal Cannula 4.0 Lab Results: Results Past 24 Hours Test 05/23/17 02:40 05/23/17 04:13 05/23/17 05:16 05/23/17 05:38 Range/Units White Blood Count 6.39 4.8-10.8 K/uL Red Blood Count 4.68 4.7-6.1 M/uL Hemoglobin 12.9 14.0-18.0 g/dL Hematocrit 37.9 42-52 % Mean Corpuscular Volume 81.0 80-100 fL Mean Corpuscular Hemoglobin 27.6 25-34 pg Mean Corpuscular Hemoglobin Concent 34.0 32-36 g/dl Platelet Count 130 130-400 K/uL Mean Platelet Volume 9.1 7.4-10.4 fL Neutrophils (%) (Auto) 86.2 % Lymphocytes (%) (Auto) 4.9 % Monocytes (%) (Auto) 8.6 % Eosinophils (%) (Auto) 0.0 % Basophils (%) (Auto) 0.0 % Neutrophils # (Auto) 5.51 1.4-6.5 K/uL Lymphocytes # (Auto) 0.31 1.2-3.4 K/uL Monocytes # (Auto) 0.55 0.11-0.59 K/uL Eosinophils # (Auto) 0.00 0-0.5 K/uL Basophils # (Auto) 0.00 0-0.2 K/uL RDW Standard Deviation 37.8 36.4-46.3 fL RDW Coefficient of Variation 12.9 11.5-14.5 % Immature Granulocyte % (Auto) 0.3 % Immature Granulocyte # (Auto) 0.02 0.00-0.02 K/uL Sodium Level 126 136-145 mmol/L Potassium Level 4.8 3.5-5.1 mmol/L Chloride Level 91 98-107 mmol/L Carbon Dioxide Level 23 21-32 mmol/L Anion Gap 12.0 3-11 mmol/L Blood Urea Nitrogen 51 7-18 mg/dl Creatinine 2.38 0.60-1.40 mg/dl Est Creatinine Clear Calc Drug Dose 38.9 ml/min Estimated GFR () 32.4 Estimated GFR (Non- 28.0 BUN/Creatinine Ratio 21.4 10-20 Random Glucose 554 70-99 mg/dl Estimated Average Glucose 217 mg/dl Hemoglobin A1c 9.2 4.5-5.6 % Osmolality 309 280-300 mOsm/kg Calcium Level 8.6 8.5-10.1 mg/dl Magnesium Level 1.9 1.8-2.4 mg/dl Total Bilirubin 0.5 0.2-1 mg/dl Aspartate Amino Transf (AST/SGOT) 23 15-37 U/L Alanine Aminotransferase (ALT/SGPT) 32 12-78 U/L Alkaline Phosphatase 99 45-117 U/L Total Creatine Kinase 360 39-308 U/L Creatine Kinase MB 4.4 0.5-3.6 ng/ml Creatine Kinase MB Ratio 1.2 0-3.0 Troponin I 0.035 0-0.045 ng/ml Pro-B-Type Natriuretic Peptide 5010 0-900 pg/ml Total Protein 7.4 6.4-8.2 gm/dl Albumin 3.3 3.4-5.0 gm/dl Globulin 4.1 2.5-4.0 gm/dl Albumin/Globulin Ratio 0.8 0.9-2 Beta-Hydroxybutyric Acid 1.70 0.2-2.81 mg/dL Chemistry Specimen Hemolysis Activated Partial Thromboplast Time 24.5 21.0-31.0 SECONDS Partial Thromboplastin Ratio 0.9 Venous Blood pH 7.38 7.36-7.41 Venous Blood Partial Pressure CO2 42 38.0-50.0 mmHg Venous Blood Partial Pressure O2 48 mmHg Venous Blood HCO3 24 mmol/L Venous Blood Oxygen Saturation 81.1 % Venous Blood Base Excess -0.9 mEq/L Influenza Type A Antigen POS for Influ A NEG Influenza Type B Antigen Neg for Influ B NEG Bedside Glucose 423 70-99 mg/dl Test 05/23/17 06:45 05/23/17 07:51 05/23/17 08:06 05/23/17 08:20 Range/Units Bedside Glucose 311 279 70-99 mg/dl Sodium Level 131 136-145 mmol/L Potassium Level 3.7 3.5-5.1 mmol/L Chloride Level 95 98-107 mmol/L Carbon Dioxide Level 27 21-32 mmol/L Anion Gap 9.0 3-11 mmol/L Blood Urea Nitrogen 53 7-18 mg/dl Creatinine 2.43 0.60-1.40 mg/dl Est Creatinine Clear Calc Drug Dose 36.6 ml/min Estimated GFR () 31.6 Estimated GFR (Non- 27.3 BUN/Creatinine Ratio 21.8 10-20 Random Glucose 222 70-99 mg/dl Calcium Level 8.6 8.5-10.1 mg/dl Troponin I 1.240 0-0.045 ng/ml Urine Color YELLOW Urine Appearance CLEAR CLEAR Urine pH 5.0 4.5-7.5 Urine Specific [place] 1.017 1.000-1.030 Urine Protein 2+ NEG Urine Glucose (UA) 2+ NEG Urine Ketones NEG NEG Urine Occult Blood 1+ NEG Urine Nitrite NEG NEG Urine Bilirubin NEG NEG Urine Urobilinogen NEG NEG Urine Leukocyte Esterase NEG NEG Urine WBC (Auto) 1-5 0-5 /hpf Urine RBC (Auto) 0-4 0-4 /hpf Urine Hyaline Casts (Auto) 5-10 0-5 /lpf Urine Epithelial Cells (Auto) 10-20 0-5 /lpf Urine Bacteria (Auto) NEG NEG Test 05/23/17 08:50 05/23/17 10:04 05/23/17 11:08 05/23/17 12:01 Range/Units Bedside Glucose 226 171 135 170 70-99 mg/dl Test 05/23/17 13:15 05/23/17 14:34 05/23/17 14:57 05/23/17 15:11 Range/Units Bedside Glucose 220 216 70-99 mg/dl Troponin I 1.590 0-0.045 ng/ml Lactic Acid Level 0.8 0.4-2.0 mmol/L Test 05/23/17 15:32 05/23/17 16:32 Range/Units Bedside Glucose 191 135 70-99 mg/dl Microbiology Results 05/23/17 Blood Culture, Received Pending 05/23/17 Blood Culture, Ordered Pending
[2017-05-23] MEDS ORDERED: DOXYCYCLINE IV 100 MG in DEXTROSE 5% 100ML 100 ML IV SCH (20:00)
[2017-05-23] MEDS ORDERED: DEXTROSE 50% 50 ML SYR ONE (20:39)
[2017-05-23] MEDS ORDERED: DC IV INSULIN INFUSION ONE (21:00)
[2017-05-23] MEDS: ROSUVASTATIN CALCIUM 20 MG TAB PO SCH (21:10)
[2017-05-23] MEDS: DOXYCYCLINE HYCLATE 100 MG CAP PO SCH (21:10)
[2017-05-23] MEDS: GUAIFENESIN 600 MG TABCR PO SCH (21:11)
--- NOTE | 2017-05-23 22:51 | EMERGENCY ROOM VISIT NOTE ---
History Report prepared by Felipe: Lolis Mckinney Under the Supervision of: Dr. Jo Gracia D.O. First contact with patient: 02:41 Stated Complaint: RESPIRATORY DISTRESS History of Present Illness The patient is a 62 year old male who presents to the Emergency Room with complaints of an episode of respiratory distress starting an hour ago. The patient states that he has been short of breath for two days. He states he has been coughing and had some chest pain when he does so. He reports that he has been trying breathing treatments every 4 hours with no relief. EMS reports that the patient was 85% when they arrived and notes they gave him Nitro paste and a breathing treatment. The patient notes a history of CHF, hypertension, and asthma. Source of History: patient, EMS Onset: an hour ago Position: other (global) Quality: other (global) Timing: other (episode) Associated Symptoms: + cough, + chest pain Review of Systems See HPI for pertinent positives & negatives. A total of 10 systems reviewed and were otherwise negative. Past Medical & Surgical Medical Problems: (1) Asthma (2) CAD (coronary artery disease) (3) Chest pain (4) CKD (chronic kidney disease), stage III (5) DM type 2 (diabetes mellitus, type 2) (6) Dyslipidemia (7) Hypertension (8) LBBB (left bundle branch block) (9) Mild aortic stenosis (10) Nonischemic cardiomyopathy (11) Respiratory failure, acute Surgical Problems: (1) H/O cardiac catheterization (2) S/p adrenal gland surgery Family History Diabetes mellitus SISTER BROTHER FH: CHF (congestive heart failure) MOTHER Hypertension SON Social History Smoking Status: Never Smoker Drug Use: none Marital Status: Housing Status: lives with significant other Occupation Status: retired Current/Historical Medications Scheduled Amlodipine (Norvasc), 10 MG PO DAILY Aspirin (Aspirin Ec), 81 MG PO QAM Carvedilol (Carvedilol), 12.5 MG PO BID Cholecalciferol (Vitamin D3), 2,000 INTER.UNIT PO QAM Duloxetine Hcl (Cymbalta), 60 MG PO DAILY Enalapril Maleate (Enalapril Maleate), 1 TAB PO NOON Fluticasone Furoate-Vilanterol (Breo Ellipta), 1 PUFF PO DAILY Furosemide (Lasix), 20 MG PO QAM Gabapentin (Neurontin), 300 MG PO QID Home O2 Therapy (Oxygen), 2 LITERS NA HS Insulin Aspart (Novolog Flexpen), 7 UNITS SQ QAM Insulin Aspart (Novolog Flexpen), 14 UNITS SQ UD Insulin Glargine (Lantus Solostar), 45 UNITS SC HS Isosorbide Dinitrate (Isordil), 20 MG PO TID Pantoprazole (Protonix), 40 MG PO QAM Rosuvastatin Calcium (Crestor), 40 MG PO HS Scheduled PRN Albuterol (Ventolin Hfa), 2 PUFFS INH Q4H PRN for SOB/Wheezing Allergies Coded Allergies: No Known Allergies (Verified , 05/23/17) Physical Exam Vital Signs Date Time Temp Pulse Resp B/P (MAP) Pulse Ox O2 Delivery O2 Flow Rate FiO2 05/23/17 04:09 105 22 157/109 95 BiPAP 40 05/23/17 03:39 106 16 180/101 96 BiPAP 40 05/23/17 03:09 89 26 152/93 95 BiPAP 40 05/23/17 02:55 93 05/23/17 02:50 93 BiPAP 40 05/23/17 02:50 98 96 40 05/23/17 02:50 90 24 152/93 93 BiPAP 40 05/23/17 02:46 85 Room Air 05/23/17 02:46 85 Room Air 05/23/17 02:46 37.1 91 32 169/110 85 Nasal Cannula 4.0 Physical Exam General: Moderate respiratory distress. HEENT: Head - normocephalic and atraumatic Pupils are equal, round, and reactive to light. Extraocular eye muscles are intact, and sclera are anicteric. Nose - moist nasal mucosa without discharge. Mouth - moist buccal mucosa. Oropharynx is nonerythematous and there is no tonsillar exudate or edema noted. Neck: Supple; no JVD, nuchal rigidity, cervical lymphadenopathy. Heart: Regular rate and rhythm. There is a normal S1 and S2 with no murmurs, clicks, or gallops appreciated. Lungs: Rales throughout all lung pedersen. Expiratory wheezes at the bases. No rhonchi. Abdomen: Abdomen is protuberant. Soft, completely nontender, with good bowel sounds. There are no palpable pulsatile masses or hepatosplenomegaly. There is no guarding, rigidity, or rebound noted. Extremities: Trace pedal edema. No evidence of cyanosis or clubbing There are easily palpable peripheral pulses. Skin: warm and dry with good turgor and no rashes. Medical Decision & Procedures ER Provider Diagnostic Interpretation: CHEST X-RAY: The results were interpreted by me. Bilateral pulmonary edema with cardiomegaly. Laboratory Results 05/23/17 02:40 Red Blood Count 4.68, Mean Corpuscular Volume 81.0, Mean Corpuscular Hemoglobin 27.6, Mean Corpuscular Hemoglobin Concent 34.0, Mean Platelet Volume 9.1, Neutrophils (%) (Auto) 86.2, Lymphocytes (%) (Auto) 4.9, Monocytes (%) (Auto) 8.6, Eosinophils (%) (Auto) 0.0, Basophils (%) (Auto) 0.0, Neutrophils # (Auto) 5.51, Lymphocytes # (Auto) 0.31, Monocytes # (Auto) 0.55, Eosinophils # (Auto) 0.00, Basophils # (Auto) 0.00 Test 05/23/17 02:40 05/23/17 04:13 White Blood Count 6.39 K/uL (4.8-10.8) Red Blood Count 4.68 M/uL (4.7-6.1) Hemoglobin 12.9 g/dL (14.0-18.0) Hematocrit 37.9 % (42-52) Mean Corpuscular Volume 81.0 fL (80-100) Mean Corpuscular Hemoglobin 27.6 pg (25-34) Mean Corpuscular Hemoglobin Concent 34.0 g/dl (32-36) Platelet Count 130 K/uL (130-400) Mean Platelet Volume 9.1 fL (7.4-10.4) Neutrophils (%) (Auto) 86.2 % Lymphocytes (%) (Auto) 4.9 % Monocytes (%) (Auto) 8.6 % Eosinophils (%) (Auto) 0.0 % Basophils (%) (Auto) 0.0 % Neutrophils # (Auto) 5.51 K/uL (1.4-6.5) Lymphocytes # (Auto) 0.31 K/uL (1.2-3.4) Monocytes # (Auto) 0.55 K/uL (0.11-0.59) Eosinophils # (Auto) 0.00 K/uL (0-0.5) Basophils # (Auto) 0.00 K/uL (0-0.2) RDW Standard Deviation 37.8 fL (36.4-46.3) RDW Coefficient of Variation 12.9 % (11.5-14.5) Immature Granulocyte % (Auto) 0.3 % Immature Granulocyte # (Auto) 0.02 K/uL (0.00-0.02) Estimated Average Glucose 217 mg/dl Hemoglobin A1c 9.2 % (4.5-5.6) Osmolality 309 mOsm/kg (280-300) Magnesium Level 1.9 mg/dl (1.8-2.4) Total Bilirubin 0.5 mg/dl (0.2-1) Aspartate Amino Transf (AST/SGOT) 23 U/L (15-37) Alanine Aminotransferase (ALT/SGPT) 32 U/L (12-78) Alkaline Phosphatase 99 U/L (45-117) Total Creatine Kinase 360 U/L (39-308) Creatine Kinase MB 4.4 ng/ml (0.5-3.6) Creatine Kinase MB Ratio 1.2 (0-3.0) Pro-B-Type Natriuretic Peptide 5010 pg/ml (0-900) Total Protein 7.4 gm/dl (6.4-8.2) Albumin 3.3 gm/dl (3.4-5.0) Globulin 4.1 gm/dl (2.5-4.0) Albumin/Globulin Ratio 0.8 (0.9-2) Beta-Hydroxybutyric Acid 1.70 mg/dL (0.2-2.81) Chemistry Specimen Hemolysis Activated Partial Thromboplast Time 24.5 SECONDS (21.0-31.0) Partial Thromboplastin Ratio 0.9 Venous Blood pH 7.38 (7.36-7.41) Venous Blood Partial Pressure CO2 42 mmHg (38.0-50.0) Venous Blood Partial Pressure O2 48 mmHg Venous Blood HCO3 24 mmol/L Venous Blood Oxygen Saturation 81.1 % Venous Blood Base Excess -0.9 mEq/L Laboratory results per my review. Medications Administered Medications (Trade) Dose Ordered Sig/Larry Route Start Time Stop Time Status Last Admin Dose Admin Furosemide (Lasix Inj) 40 mg NOW STAT IV 05/23/17 02:51 05/23/17 02:52 DC 2/3/18 03:05 40 MG Furosemide (Lasix Inj) 20 mg NOW STAT IV 05/23/17 03:40 05/23/17 03:41 DC 05/23/17 04:29 20 MG Procedure 0251: Ordered Lasix Inj 40 mg IV. ECG Indication: SOB/dyspnea Rate (beats per minute): 113 Rhythm: sinus tachycardia (wide complexed) Findings: LBBB, PVC ED Course 0241: Past medical records reviewed. The patient was evaluated in room B1. A complete history and physical exam was performed. O2 stats on 4 L were 85% so he was put on Bi-PAP and appears much more comfortable with saturations at 92%. A twelve-lead EKG was obtained. Laboratory studies were drawn as above. A portable chest x-ray was performed 0251: Ordered Lasix Inj 40 mg IV. The patient remains stable on BiPAP. He states that his breathing feels much improved. He tells me that he took 40 mg of oral Lasix at home but has not yet urinated. 0313: I interpreted the patient's EKG at this time. I discussed some of the results with the patient. Again, he is hemodynamically stable. He seems to be breathing much more easily. 0331: Discussed the patient's case with Dr. Vazquez. The patient will be evaluated for further management. Medical Decision The patient is a 62 year old male who presents to the Emergency Room with complaints of an episode of respiratory distress starting an hour ago. Differential diagnoses include asthma exacerbation, CHF, pneumonia, cardiac ischemia. LABS: Normal white count Hemoglobin 12.9 BUN 51 Creatine 2.3 Glucose 554 Troponin 0.035 BNP 5010 This is a 62-year-old male patient with a history of asthma and CHF who presents to the emergency department with a sudden onset of worsening shortness of breath. The patient gives a history of increasing shortness of breath and cough over the past 2-3 days with severe orthopnea. On presentation, the patient was hypoxic on supplemental O2. He has significant improvement in his symptoms with CPAP/BiPAP. He was afebrile with no leukocytosis. Patient had a BNP greater than 5000. I felt the patient's symptoms were consistent with congestive heart failure. He was given IV Lasix and began to diurese. Medication Reconcilliation Current Medication List: was personally reviewed by me Blood Pressure Screening Patient's blood pressure: Elevated blood pressure Will be further monitored by the hospitalist. Consults Time Called: [phone] Consulting Physician: Dr. George Gusman Hospitalist Returned Call: [phone] Discussed the patient's case with Dr. Vazquez. The patient will be evaluated for further management. Impression Primary Impression: Respiratory failure, acute Additional Impression: CHF (congestive heart failure) Critical Care I have personally spent greater than 30 minutes of critical care time in the direct management of this patient. This includes bedside care, interpretation of diagnostic studies, and testing, discussion with consultants, patient, and family members, and other required patient management activities. This 30 minutes is in excess of all separately billable procedures. Scribe Attestation The scribe's documentation has been prepared under my direction and personally reviewed by me in its entirety. I confirm that the note above accurately reflects all work, treatment, procedures, and medical decision making performed by me. Departure Information Dispostion Being Evaluated By Hospitalist Referrals Mabel Butts M.D. (PCP) Problem Qualifiers Primary Impression: Respiratory failure, acute Respiratory failure complication: hypoxia Qualified Codes: J96.01 - Acute respiratory failure with hypoxia Additional Impression: CHF (congestive heart failure) Congestive heart failure type: combined Congestive heart failure chronicity: acute Qualified Codes: I50.41 - Acute combined systolic (congestive) and diastolic (congestive) heart failure
[2017-05-24] VITALS (17 sets, daily range): BP systolic 92–154; BP diastolic 54–78; PULSE 56–95; TEMP 37–38.9; O2SAT 86–100
[2017-05-24] MEDS: IPRATROPIUM BROMIDE NEB SOLN 0.02% 2.5 ML VIAL INH SCH ×4 (02:00→18:58)
[2017-05-24] MEDS: LEVALBUTEROL 1.25MG/0.5ML NEB INH SCH ×4 (02:00→18:58)
[2017-05-24] MEDS: CEFEPIME IV 2,000 MG in SYRINGE 7.5 ML IV SCH ×2 (04:30→17:43)
[2017-05-24] MEDS ORDERED: INSULIN REGULAR 250 UNITS in SODIUM CHLORIDE 0.9% 250ML 250 ML IV SCH (04:45)
[2017-05-24 06:13] LABS: HEMATOCRIT 30.4 % (42-52); HEMOGLOBIN 10.4 g/dL (14.0-18.0); MEAN CELL VOLUME 80.4 fL (80-100); MEAN CORPUSCULAR HEMOGLOBIN 27.5 pg (25-34); MEAN CORPUSCULAR HGB CONC 34.2 g/dl (32-36); RED CELL DISTRIBUTION WIDTH SD 37.9 fL (36.4-46.3); WHITE BLOOD COUNT 5.14 K/uL (4.8-10.8)
[2017-05-24 06:44] LABS: CALCIUM 8.2 mg/dl (8.5-10.1); CREATININE 2.75 mg/dl (0.60-1.40); POTASSIUM 3.7 mmol/L (3.5-5.1)
[2017-05-24] MEDS: ISOSORBIDE DINITRATE 20 MG TAB PO SCH ×3 (06:44→17:47)
[2017-05-24] MEDS: INSULIN ASPART 100 UNITS/ML 3 ML PEN SC SCH ×4 (07:00→20:32)
[2017-05-24 07:19] LABS: IG# 0.01 K/uL (0.00-0.02); LYMPH % 11.3 %; LYMPH ABS # 0.58 K/uL (1.2-3.4); MEAN PLATELET VOLUME 8.8 fL (7.4-10.4); MONO % 9.9 %; MONO ABS # 0.51 K/uL (0.11-0.59); NEUT % 78.6 %; NEUT ABS # 4.04 K/uL (1.4-6.5); PLATELET COUNT 92 K/uL (130-400)
[2017-05-24] MEDS ORDERED: GLUCOSE 40% GEL 15 GM TUBE PO PRN (08:30)
[2017-05-24] MEDS ORDERED: GLUCAGON FOR INJ 1 MG VIAL SQ PRN (08:30)
[2017-05-24] MEDS ORDERED: DEXTROSE 50% 50 ML SYR IV PRN (08:30)
[2017-05-24] MEDS ORDERED: GLUCOSE 10 TABS/TUBE PO PRN (08:30)
[2017-05-24] MEDS ORDERED: INSULIN GLARGINE SOLOSTAR 100 UNITS/ML 3 ML PEN SC SCH (09:00)
[2017-05-24] MEDS: DOXYCYCLINE HYCLATE 100 MG CAP PO SCH ×2 (09:46→20:25)
[2017-05-24] MEDS: DULOXETINE HCL 60 MG CAP PO SCH (09:46)
[2017-05-24] MEDS: GUAIFENESIN 600 MG TABCR PO SCH ×2 (09:46→20:25)
[2017-05-24] MEDS: ASPIRIN 81 MG ECTAB PO SCH (09:47)
[2017-05-24] MEDS: CARVEDILOL 12.5 MG TAB PO SCH ×2 (09:47→20:26)
[2017-05-24] MEDS: AMLODIPINE BESYLATE 5 MG TAB PO SCH (09:48)
[2017-05-24] MEDS: GABAPENTIN 100 MG CAP PO SCH ×3 (09:48→20:24)
[2017-05-24] MEDS: PANTOprazole SOD 40 MG TAB PO SCH (09:49)
[2017-05-24] MEDS: OSELTAMIVIR PHOSPHATE SUSP 30 MG/5 ML UDP PO SCH (09:49)
[2017-05-24] MEDS ORDERED: POTASSIUM CHLORIDE 20 MEQ TABCR PO STA (09:51)
[2017-05-24] MEDS ORDERED: FUROSEMIDE INJ 40 MG in SYRINGE 0 ML IV SCH (10:00)
[2017-05-24] MEDS ORDERED: FUROSEMIDE INJ 60 MG in SYRINGE 0 ML IV SCH (10:00)
[2017-05-24] MEDS ORDERED: HEPARIN SOD 5000 UNIT/0.5 ML CARP SQ ONE (10:08)
--- NOTE | 2017-05-24 10:08 | Cardiology Follow-Up ---
Subjective General Date of Service: May 24, 2017. Chief Complaint: follow up shortness of breath Pt evaluation today including: conversation w/ patient, physical exam History of Present Illness The patient is a 62 year old male seen in follow up. Patient still short of breath. Hypoxia still noted with pulse ox, 85% on room are, however, his is now off of bipap and is comfortable and conversant, with interval overall improvement. Remains afebrile. Telemetry reveals Sinus tachycardia, LBBB (chronic), frequent PVCs. Allergies Coded Allergies: No Known Allergies (Verified , 05/23/17) Social History Smoking Status: Never Smoker Hx Tobacco Use In Past Year?: No Hx Alcohol Use - Type And Amou: No Hx Substance Use - Type And Am: No Problem List Medical Problems: (1) CHF (congestive heart failure) Status: Acute (2) CHF (congestive heart failure) Status: Acute (3) Diffuse abdominal pain Status: Acute (4) Elevated troponin Status: Acute (5) Precordial chest pain Status: Acute (6) Renal cyst Status: Acute (7) Shortness of breath Status: Acute (8) Shortness of breath Status: Acute Physical Exam Vital Signs Last Vital Signs Documentation Date Time Temp Pulse Resp B/P (MAP) Pulse Ox O2 Delivery O2 Flow Rate FiO2 05/24/17 08:03 37.0 84 18 129/67 (87) 95 05/24/17 07:48 Room Air 40 05/23/17 06:36 40.0 Physical Exam Constitutional: Level of Distress: acutely ill ENMT: TMs normal Neck: supple, trachea midline Lungs: Auscultation: pertinent finding (Decreased BS at bases bilaterally) Cardiovascular: Heart Auscultation: RRR, pertinent finding (04/25 SM) Abdomen: Inspection & Palpation: soft, non-distended Extremities: no edema Neurologic: Gait & Station: pertinent finding (mental status appropriate, no focal deficits ) Assessment and Plan Assessment and Plan Impression: 62-year-old male 1. Acute influenza A, resultant cough generalized malaise. 2. Superimposed acute systolic heart failure decompensation, history of left bundle branch block, nonischemic cardiomyopathy, LVEF 30-40% March 2017 3. Acute kidney injury on stage III chronic kidney disease 4. borderline thrombocytopenia Plan: Recent baseline Creatinine of 1.7-2, was 2.38 on admission and had trended up to 2.75 mg/dL. With cuadra, 2.8 L urine output noted to midnight last night. Will administer 60 mg furosemide IV x 1 this am as given findings on exam and pulse oxymetry , believe he is still suffering from cardiogenic pulmonary edema. Continue tamiflu and empiric doxycycline plus cefepime. Patient tells me he did no have influenza vaccination this season. Continue ASA, coreg, isordil, rosuvastatin. Troponin peaked yesterday at 1.59 ng/ml , trended down to 0.76, suspect due to heart failure, myocardial stress, rather than acute intracoronary plaque rupture. Start SQ heparin for DVT prophylaxis, monitor platelet count. Laboratory Results Last 24 Hours Test 05/23/17 10:04 05/23/17 11:08 05/23/17 12:01 05/23/17 13:15 Bedside Glucose 171 mg/dl 135 mg/dl 170 mg/dl 220 mg/dl Test 05/23/17 14:34 05/23/17 14:57 05/23/17 15:11 05/23/17 15:32 Bedside Glucose 216 mg/dl 191 mg/dl Troponin I 1.590 ng/ml Lactic Acid Level 0.8 mmol/L Test 05/23/17 16:32 05/23/17 16:52 05/23/17 18:03 05/23/17 19:03 Bedside Glucose 135 mg/dl 154 mg/dl 145 mg/dl 123 mg/dl Test 05/23/17 19:56 05/23/17 20:00 05/23/17 21:07 05/23/17 22:07 Troponin I 1.210 ng/ml Bedside Glucose 78 mg/dl 164 mg/dl 131 mg/dl Test 05/23/17 23:04 05/24/17 00:05 05/24/17 01:04 05/24/17 05:54 Bedside Glucose 110 mg/dl 111 mg/dl 113 mg/dl White Blood Count 5.14 K/uL Red Blood Count 3.78 M/uL Hemoglobin 10.4 g/dL Hematocrit 30.4 % Mean Corpuscular Volume 80.4 fL Mean Corpuscular Hemoglobin 27.5 pg Mean Corpuscular Hemoglobin Concent 34.2 g/dl Platelet Count 92 K/uL Mean Platelet Volume 8.8 fL Neutrophils (%) (Auto) 78.6 % Lymphocytes (%) (Auto) 11.3 % Monocytes (%) (Auto) 9.9 % Eosinophils (%) (Auto) 0.0 % Basophils (%) (Auto) 0.0 % Neutrophils # (Auto) 4.04 K/uL Lymphocytes # (Auto) 0.58 K/uL Monocytes # (Auto) 0.51 K/uL Eosinophils # (Auto) 0.00 K/uL Basophils # (Auto) 0.00 K/uL RDW Standard Deviation 37.9 fL RDW Coefficient of Variation 13.0 % Immature Granulocyte % (Auto) 0.2 % Immature Granulocyte # (Auto) 0.01 K/uL Platelet Estimate DECREASED Sodium Level 133 mmol/L Potassium Level 3.7 mmol/L Chloride Level 99 mmol/L Carbon Dioxide Level 27 mmol/L Anion Gap 7.0 mmol/L Blood Urea Nitrogen 72 mg/dl Creatinine 2.75 mg/dl Est Creatinine Clear Calc Drug Dose 32.7 ml/min Estimated GFR () 27.2 Estimated GFR (Non- 23.5 BUN/Creatinine Ratio 26.3 Random Glucose 54 mg/dl Calcium Level 8.2 mg/dl Magnesium Level 2.3 mg/dl Troponin I 0.768 ng/ml Test 05/24/17 06:12 05/24/17 06:34 Bedside Glucose 66 mg/dl 76 mg/dl
[2017-05-24] MEDS ORDERED: AMIODARONE IV BOLUS / DRIP IV STA (12:44)
--- NOTE | 2017-05-24 12:46 | Cardiology Progress Note ---
Cardiology Progress Note Date of Service May 24, 2017. Cardiology Progress Note Patient with new sustained tachycardia on telemetry , EKG confirmed AF, RVR 120- 129 bpm with LBBB. Will start amiodarone and UF heparin infusion.
[2017-05-24] MEDS ORDERED: AMIODARONE / D5W 100 ML IV ONE (13:00)
[2017-05-24] MEDS ORDERED: AMIODARONE / D5W 200 ML IV SCH (13:10)
--- NOTE | 2017-05-24 13:25 | Pharmacy Progress Note ---
Glycemic Control Progress Note Date of Service May 24, 2017. Scope Glycemic Pharmacist consulted for glycemic control to write orders per [facility] inpatient glycemic control protocol. Objective Accuchecks BSG (last 24hrs): Test 05/23/17 14:34 05/23/17 15:32 05/23/17 16:32 05/23/17 16:52 Bedside Glucose 216 mg/dl (70-99) 191 mg/dl (70-99) 135 mg/dl (70-99) 154 mg/dl (70-99) Test 05/23/17 18:03 05/23/17 19:03 05/23/17 20:00 05/23/17 21:07 Bedside Glucose 145 mg/dl (70-99) 123 mg/dl (70-99) 78 mg/dl (70-99) 164 mg/dl (70-99) Test 05/23/17 22:07 05/23/17 23:04 05/24/17 00:05 05/24/17 01:04 Bedside Glucose 131 mg/dl (70-99) 110 mg/dl (70-99) 111 mg/dl (70-99) 113 mg/dl (70-99) Test 05/24/17 05:54 05/24/17 06:12 05/24/17 06:34 05/24/17 11:15 Random Glucose 54 mg/dl (70-99) Bedside Glucose 66 mg/dl (70-99) 76 mg/dl (70-99) 198 mg/dl (70-99) HbA1c: Test 05/23/17 02:40 Hemoglobin A1c 9.2 % (4.5-5.6) H Recent Pertinent Medications Outpatient Anti-diabetic Regimen: * Novolog with meals - 7 units breakfast, 14 units lunch and dinner * Lantus 45 units HS * A1c = 9.2 % 05/23/17 The patient is currently receiving: * Basal insulin: Lantus 45 UNITS x 1 dose overlapping with IV Insulin infusion yesterday * IV Insulin d/c last night Risk Factors for Insulin Resistance: * Steroids: Solu-medrol 20mg IV x1 2/3 AM * Infection: Doxycycline & Tamiflu * IVF: Heparin and Amiodarone IV * Diet: Clears --> advanced to Type 2 DM today Assessment & Plan ASSESSMENT: 05/24/17 * Pt transitioned off of insulin drip with episode of hypoglycemia likely due to too much Lantus and Solu-medrol wearing off more quickly than expected. * Diet advanced to Type 2 DM today. * Pt started on IV Amiodarone and Heparin per cardio today for sustained tachycardia. * Held carb coverage this AM to ensure patient does not have sustained hypoglycemia. * BSG before lunch = 198mg/dl - will resume CF and CR and Home dose of Lantus tonight and titrate as needed. 05/23/17 * 62 year old male, uncontrolled type 2 diabetic, a1c 9.2% * Acute hypoxemic respiratory failure secondary to decompensated heart failure, secondary to bronchitis/flu pneumonia, no sepsis * Patient started on insulin drip this morning for BSGs in 400s, BSGs trending down to goal, but will continue until pt stays within goal range. * Pt did receive dose of Lantus this morning PLAN FOR INPATIENT GLYCEMIC CONTROL: * Basal insulin with LANTUS 45 units SQ HS * Bolus insulin * NovoLog per scale ACHS or Q6hrs while NPO * Goal Range: Low 120 mg/dL - High 160 mg/dL * Correction Factor: 20 mg/dL/unit * Nutritional / Prandial insulin per carb ratio of 1 unit per 8 grams CHO consumed * Please note that the plan above was derived based on current level of insulin resistance and hospital stress. These recommendations are appropriate for inpatient admission only. Plan of care upon discharge will need to be reassessed to avoid potential outpatient hypo/hyperglycemia. Thank you.
[2017-05-24 13:46] LABS: PTT PATIENT 28.6 SECONDS (21.0-31.0)
[2017-05-24] MEDS: HEPARIN 25,000 UNIT/500ML D5W 500 ML IV PRN ×2 (14:36→22:26)
--- NOTE | 2017-05-24 16:01 | Progress Note ---
Internal Med Progress Note Date of Service: May 24, 2017. Provider Documentation: SUBJECTIVE: sitting on the bed saturating ok off bipap says sob and cough is better today has chest pain while coughing no nausea afebrile OBJECTIVE: Vital Signs-as noted below Exam: General-alert and oriented. not in distress ENT-Normal hearing Neck-no neck masses Lungs-cta b/l no wheezing mild bilateral crackles Heart-S1 and S2 heard regular rate and rhythm, no murmurs Abdomen-soft bowel sounds present no tenderness no distension Extremities-trace pedal edema no erythema Neuro-alert and awake moves extremities Lab data as noted below. ASSESSMENT & PLAN: 1. Acute hypoxemic respiratory failure secondary to decompensated heart failure secondary to bronchitis/flu pneumonia on Tamiflu on iv cefepime and doxycycline for any superimposed bacterial pneumonia' lactic acid normal nebs bipap close monitor continue same hx systolic heart failure 2 to non-ischemic cardiomyopathy EF 40% received iv lasix 60mg today appreciate cardiology inputs Elevated troponin mostly demand ischemia as per cardiology close f/u. Rapid afib started on amiodarone drip and iv heparin drip as per cardiology close f/u Asthma/chronic obstructive pulmonary disease as per records/ possible untreated ARPIT as per recent outpatient Pulmonary evaluation. Possible exacerbation of chronic lung disease on nebs bipaP continue to monitor Hyperglycemic hyperosmolar syndrome secondary to stress of illness/? compliance DM2, insulin requiring, suboptimal control as of recent outpatient HgA1c 8.7 Was ON Insulin gtt.Currently on lantus and iss appreciate pharmacy inputs will monitor. Hypertension,home meds with hold parameters. hx nonocclusive CAD as per records Home meds. Chronic left bundle branch block Acute renal failure on chronic renal insufficiency secondary to illness. baseline cr 1.7 to 1.9 cr 2.7 today will f/u labs on lasix. nephrology consulted Chronic anemia secondary to kidney disease, hemoglobin at baseline. will f/ulabs. Chronic thrombocytopenia. will f/u labs Dvt px scds disposition close monitor in tele Vital Signs: Date Time Temp Pulse Resp B/P (MAP) Pulse Ox O2 Delivery O2 Flow Rate FiO2 05/24/17 15:27 38.6 93 20 104/62 (76) 94 Nasal Cannula 5.0 05/24/17 14:34 93 18 93 Room Air 40 05/24/17 12:25 154/78 (103) 86 Nasal Cannula 2.0 05/24/17 12:00 92 Nasal Cannula 3.0 05/24/17 11:36 37.0 89 18 141/69 (93) 97 05/24/17 08:03 37.0 84 18 129/67 (87) 95 05/24/17 08:00 92 Nasal Cannula 3.0 05/24/17 07:48 93 18 93 Room Air 40 05/24/17 04:11 37.4 56 18 92/54 (67) 100 BiPAP 05/24/17 04:00 BiPAP 05/24/17 02:12 56 96 40 05/24/17 02:00 56 18 96 BiPAP/CPAP 40 05/24/17 00:00 BiPAP 05/23/17 23:05 37.0 54 24 94/51 (65) 97 BiPAP 05/23/17 20:00 BiPAP 05/23/17 19:35 56 18 96 BiPAP/CPAP 40 05/23/17 19:35 56 96 40 05/23/17 19:20 36.5 55 24 92/55 (67) 97 05/23/17 16:41 36.8 86 18 104/69 (81) 95 05/23/17 16:00 BiPAP 40 Lab Results: Results Past 24 Hours Test 05/23/17 16:32 05/23/17 16:52 05/23/17 18:03 05/23/17 19:03 Range/Units Bedside Glucose 135 154 145 123 70-99 mg/dl Test 05/23/17 19:56 05/23/17 20:00 05/23/17 21:07 05/23/17 22:07 Range/Units Troponin I 1.210 0-0.045 ng/ml Bedside Glucose 78 164 131 70-99 mg/dl Test 05/23/17 23:04 05/24/17 00:05 05/24/17 01:04 05/24/17 05:54 Range/Units Bedside Glucose 110 111 113 70-99 mg/dl White Blood Count 5.14 4.8-10.8 K/uL Red Blood Count 3.78 4.7-6.1 M/uL Hemoglobin 10.4 14.0-18.0 g/dL Hematocrit 30.4 42-52 % Mean Corpuscular Volume 80.4 80-100 fL Mean Corpuscular Hemoglobin 27.5 25-34 pg Mean Corpuscular Hemoglobin Concent 34.2 32-36 g/dl Platelet Count 92 130-400 K/uL Mean Platelet Volume 8.8 7.4-10.4 fL Neutrophils (%) (Auto) 78.6 % Lymphocytes (%) (Auto) 11.3 % Monocytes (%) (Auto) 9.9 % Eosinophils (%) (Auto) 0.0 % Basophils (%) (Auto) 0.0 % Neutrophils # (Auto) 4.04 1.4-6.5 K/uL Lymphocytes # (Auto) 0.58 1.2-3.4 K/uL Monocytes # (Auto) 0.51 0.11-0.59 K/uL Eosinophils # (Auto) 0.00 0-0.5 K/uL Basophils # (Auto) 0.00 0-0.2 K/uL RDW Standard Deviation 37.9 36.4-46.3 fL RDW Coefficient of Variation 13.0 11.5-14.5 % Immature Granulocyte % (Auto) 0.2 % Immature Granulocyte # (Auto) 0.01 0.00-0.02 K/uL Platelet Estimate DECREASED Sodium Level 133 136-145 mmol/L Potassium Level 3.7 3.5-5.1 mmol/L Chloride Level 99 98-107 mmol/L Carbon Dioxide Level 27 21-32 mmol/L Anion Gap 7.0 3-11 mmol/L Blood Urea Nitrogen 72 7-18 mg/dl Creatinine 2.75 0.60-1.40 mg/dl Est Creatinine Clear Calc Drug Dose 32.7 ml/min Estimated GFR () 27.2 Estimated GFR (Non- 23.5 BUN/Creatinine Ratio 26.3 10-20 Random Glucose 54 70-99 mg/dl Calcium Level 8.2 8.5-10.1 mg/dl Magnesium Level 2.3 1.8-2.4 mg/dl Troponin I 0.768 0-0.045 ng/ml Test 05/24/17 06:12 05/24/17 06:34 05/24/17 11:15 05/24/17 13:04 Range/Units Bedside Glucose 66 76 198 70-99 mg/dl Activated Partial Thromboplast Time 28.6 21.0-31.0 SECONDS Partial Thromboplastin Ratio 1.1
--- NOTE | 2017-05-24 18:04 | DIAGNOSTIC IMAGING REPORT ---
HEAD WITHOUT CONTRAST (CT) CLINICAL HISTORY: 62 years-old Male presenting with fall. on iv heparin. TECHNIQUE: Multidetector CT imaging of the head was performed without the use of intravenous contrast. IV contrast: None. A dose lowering technique was used consistent with the principles of ALARA (as low as reasonably achievable). COMPARISON: None. CT DOSE (mGy.cm): The estimated cumulative dose is 832.33 mGy.cm. FINDINGS: [employer] topogram: Unremarkable. Ventricles and sulci normal in size. Periventricular and subcortical white matter hypoattenuation, nonspecific but likely indicative of chronic small vessel ischemic change. No mass effect or midline shift. No hemorrhage or acute territorial infarct. No extra-axial fluid collection. Paranasal sinuses and mastoid air cells clear. Calvarium intact. IMPRESSION: 1. No acute intracranial abnormality. Electronically signed by: Pino Hodo M.D. 05/24/2017 6:03 PM Dictated Date/Time: 05/24/2017 6:00 PM
--- NOTE | 2017-05-24 19:03 | NEPHROLOGY CONSULTATION ---
DATE OF CONSULTATION: 05/24/2017 ATTENDING OF RECORD: Yovanny Desai MD. REASON FOR CONSULTATION: PAM. HISTORY OF PRESENT ILLNESS: This is a 62-year-old male, who has CKD stage IV with baseline creatinine in the high 1s, followed by my partner, Dr. Kathleen Bosch, who also has nonischemic cardiomyopathy, asthma, and COPD with underlying aortic stenosis as well as hypertension and type 2 diabetes, who was recently admitted in March for shortness of breath and presents with flu-like symptoms and shortness of breath during this admission. The patient was positive for influenza. The patient's troponin also trended up to 1.59 and is on a heparin drip. Currently on amiodarone for underlying AFib and on Tamiflu. Did receive Lasix 40 mg IV during this admission as well as an insulin drip. Creatinine was 2.38 on the 3rd and is up to 2.75. The patient resting comfortably with some underlying wheezing and cough. PAST MEDICAL HISTORY: Nonischemic cardiomyopathy, aortic stenosis, COPD, hypertension, diabetes, CKD stage IV, and baseline creatinine of 2. PAST SURGICAL HISTORY: Adrenal gland surgery. FAMILY HISTORY: Significant for diabetes. SOCIAL HISTORY: No smoking. Does chew. No alcohol. No drugs. Lives at home. REVIEW OF SYSTEMS: Positive nausea and vomiting. Positive cough. Positive shortness of breath. Positive wheezing. No chest pain. No diarrhea or constipation. No rash or itching. No blurry vision. No dysphagia. All other review of systems otherwise negative. CURRENT MEDICATIONS: Norvasc 5 mg a day, amiodarone drip, heparin drip, Tamiflu 30 mg a day, doxycycline 100 mg p.o. b.i.d., Crestor 40 mg at night, Guaifenesin 600 mg p.o. b.i.d., sliding scale insulin, cefepime 2 g IV q.12, Lantus 45 units subQ at night, aspirin 81 mg a day, Coreg 12.5 p.o. b.i.d., Cymbalta 60 mg daily, Neurontin 200 mg p.o. t.i.d., Protonix 40 mg daily, and Isordil 20 mg p.o. b.i.d. PHYSICAL EXAMINATION: VITAL SIGNS: Temperature 37, pulse 93, respiratory rate is 18, blood pressure 154/78, and satting 93% on 40% FiO2. GENERAL: Awake, alert, and oriented x3. EYES: No scleral icterus. ENT: Moist mucous membranes. NECK: Supple. PULMONARY: Positive wheezes diffusely. CARDIAC: Irregular. ABDOMEN: Bowel sounds positive, soft, nontender. EXTREMITIES: No clubbing, cyanosis, or edema. NEUROLOGICAL: Nonfocal. DERM: No rash or ulcers noted. LABORATORY DATA: Sodium was 133, potassium 3.7, chloride is 99, bicarbonate is 27, BUN 72, creatinine is 2.75, glucose is 66, calcium is 8.2, mag is 2.3. Troponin is trending down, is now 0.768. White count is 5, H&H 10 and 30, platelet count is 92. Blood gas, VBG yesterday showed a pH of 7.38, pCO2 of 42, pO2 of 48, and bicarb of 24. UA shows a pH of 5, specific gravity of 1.017, 2+ protein, 2+ glucose, 1+ blood. Flu positive. IMAGING STUDIES: Chest x-ray from yesterday shows moderate cardiomegaly, trace right pleural effusion, interval development of bilateral airspace opacities, and interstitial thickening. Findings favor bilateral pneumonia. ASSESSMENT AND PLAN: Acute kidney injury, on chronic kidney disease stage IV with a baseline creatinine of 2 with a creatinine now up to 2.75 in the setting of flu as well as a troponin leak, on heparin as well as amiodarone drip. Greatly appreciate Cardiology help to manage this complicated patient. No indication for emergent dialysis at this time. Creatinine may continue to worsen over the next several days before peaking and hopefully starting to improve. There is a possibility that the patient may need dialysis during this admission. 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 Okay with continuing diuretics if we feel that is helpful for the patient's pulmonary and cardiac treatment. We would continue supportive measures and hope as the patient starts to feel better, kidney function eventually peaks and starts to improve. I appreciate consultation. NICOLE
[2017-05-24] MEDS: AMIODARONE / D5W 200 ML IV SCH (19:38)
[2017-05-24] MEDS: ACETAMINOPHEN 325 MG TAB PO PRN (20:24)
[2017-05-24] MEDS: INSULIN GLARGINE SOLOSTAR 100 UNITS/ML 3 ML PEN SC SCH (20:30)
[2017-05-24] MEDS ORDERED: HEPARIN SOD 5000 UNIT/0.5 ML CARP SQ SCH (21:00)
[2017-05-24] MEDS ORDERED: INSULIN GLARGINE SOLOSTAR 100 UNITS/ML 3 ML PEN SC ONE (21:00)
[2017-05-24] MEDS: ROSUVASTATIN CALCIUM 20 MG TAB PO SCH (21:22)
[2017-05-24] MEDS ORDERED: HEPARIN IV BOLUS 7,000 UNIT in SYRINGE 0 ML IV ONE (21:45)
[2017-05-25] VITALS (19 sets, daily range): BP systolic 85–123; BP diastolic 50–77; PULSE 72–90; TEMP 36.6–37.7; O2SAT 90–100; BMI 37.3
[2017-05-25] MEDS: LEVALBUTEROL 1.25MG/0.5ML NEB INH SCH ×4 (01:54→19:15)
[2017-05-25] MEDS: IPRATROPIUM BROMIDE NEB SOLN 0.02% 2.5 ML VIAL INH SCH ×4 (01:54→19:14)
[2017-05-25] MEDS: CEFEPIME IV 2,000 MG in SYRINGE 7.5 ML IV SCH ×2 (03:43→15:49)
[2017-05-25] MEDS: INSULIN ASPART 100 UNITS/ML 3 ML PEN SC SCH ×6 (03:53→21:16)
[2017-05-25] MEDS: HEPARIN 25,000 UNIT/500ML D5W 500 ML IV PRN (04:22)
[2017-05-25 04:39] LABS: HEMATOCRIT 27.7 % (42-52); HEMOGLOBIN 9.5 g/dL (14.0-18.0); MEAN CELL VOLUME 79.4 fL (80-100); MEAN CORPUSCULAR HEMOGLOBIN 27.2 pg (25-34); MEAN CORPUSCULAR HGB CONC 34.3 g/dl (32-36); RED CELL DISTRIBUTION WIDTH SD 37.9 fL (36.4-46.3)
[2017-05-25 04:53] LABS: PLATELET COUNT 87 K/uL (130-400)
[2017-05-25 04:56] LABS: CALCIUM 7.6 mg/dl (8.5-10.1); CREATININE 3.41 mg/dl (0.60-1.40); POTASSIUM 3.3 mmol/L (3.5-5.1)
[2017-05-25 05:09] LABS: IG# 0.01 K/uL (0.00-0.02); LYMPH ABS # 0.76 K/uL (1.2-3.4); MONO % 8.8 %; MONO ABS # 0.35 K/uL (0.11-0.59); NEUT % 71.9 %; NEUT ABS # 2.88 K/uL (1.4-6.5)
[2017-05-25 07:01] LABS: PTT PATIENT > 300.0 SECONDS (21.0-31.0)
[2017-05-25] MEDS: CARVEDILOL 12.5 MG TAB PO SCH ×3 (07:55→21:09)
[2017-05-25] MEDS: DULOXETINE HCL 60 MG CAP PO SCH (07:55)
[2017-05-25] MEDS: ASPIRIN 81 MG ECTAB PO SCH (07:55)
[2017-05-25] MEDS: DOXYCYCLINE HYCLATE 100 MG CAP PO SCH ×2 (07:55→21:09)
[2017-05-25] MEDS: GUAIFENESIN 600 MG TABCR PO SCH ×2 (07:56→21:09)
[2017-05-25] MEDS: AMLODIPINE BESYLATE 5 MG TAB PO SCH ×2 (07:56→08:26)
[2017-05-25] MEDS: PANTOprazole SOD 40 MG TAB PO SCH (07:56)
[2017-05-25] MEDS: ISOSORBIDE DINITRATE 20 MG TAB PO SCH ×4 (07:56→16:47)
[2017-05-25] MEDS: GABAPENTIN 100 MG CAP PO SCH ×3 (07:57→21:10)
[2017-05-25 07:58] LABS: PTT PATIENT > 300.0 SECONDS (21.0-31.0)
[2017-05-25] MEDS: OSELTAMIVIR PHOSPHATE SUSP 30 MG/5 ML UDP PO SCH (08:03)
[2017-05-25] MEDS: AMIODARONE / D5W 200 ML IV SCH ×2 (08:24→20:01)
--- NOTE | 2017-05-25 08:36 | Pharmacy Progress Note ---
Pharmacy Glycemic Short Note 2 Date of Service May 25, 2017. OUTPATIENT ANTIDIABETIC REGIMEN: * Novolog with meals - 7 units breakfast, 14 units lunch and dinner * Lantus 45 units HS * A1c = 9.2 % 05/23/17 ASSESSMENT: * See progress note from 05/23/17 for background info, in short: * Pt receiving SQ basal/bolus insulin for baseline T2DM in the setting of acute hypoxemic respiratory failure secondary to decompensated heart failure, bronchitis/flu pneumonia. Pt on amiodarone and heparin drip. * Pt received total of 82 units of insulin over the past 24 hours with BSGs: 54 , 76, 198, 177, 324 * Current regimen is highly basal insulin (73% basal/27% bolus). Fasting BSG on 05/24 and 05/25 below goal. Will decrease basal insulin and attempt to redistribute regimen with goal of 50% basal/50% bolus. * Will tighten bolus parameters starting with dinner - I suspect additional Lantus that patient received on 05/24 @[facility] will also help to cover bolus needs. PLAN FOR INPATIENT GLYCEMIC CONTROL: * Basal insulin - decrease * Lantus 45 units SQ HS * Bolus insulin * NovoLog per scale ACHS or Q6hrs while NPO * Goal Range: Low 120 mg/dL - High 160 mg/dL * Correction Factor: 20 mg/dL/unit * Nutritional / Prandial insulin per carb ratio of 1 unit per 8 grams CHO consumed -> tighten to 7 starting with dinner PLAN FOR DISCHARGE: * A1c of 9.2% indicates poor outpatient glycemic control * Basal insulin appears to be appropriate - fasting BSGs near goal. * Recommend titration of prandial insulin per outpatient provider. Thank you.
--- NOTE | 2017-05-25 08:44 | Nephrology Progress Note ---
Nephrology Progress Note Date of Service: May 25, 2017. Subjective 62 yo male with flu/troponin leak/afib rate controlled with atn with worsening kidney function. this morning, bp is dropping. continues to wheeze. pt alert and comfortable. urine in cuadra. Objective Date Time Temp Pulse Resp B/P (MAP) Pulse Ox O2 Delivery O2 Flow Rate FiO2 05/25/17 07:42 37.7 87 22 94/56 (69) 93 Nasal Cannula 5.0 05/25/17 07:19 76 20 93 Nasal Cannula 5.0 05/25/17 04:00 Nasal Cannula 5.0 05/25/17 03:46 37.6 74 20 113/62 (79) 92 Nasal Cannula 5.0 05/25/17 01:54 76 20 94 Nasal Cannula 4.0 05/25/17 00:20 90 22 96 Nasal Cannula 4.0 05/24/17 23:59 Nasal Cannula 4.0 05/24/17 23:03 37.4 71 18 96/58 (71) 95 Nasal Cannula 4.0 05/24/17 21:26 37.2 05/24/17 20:12 38.9 95 20 113/70 (84) 93 Nasal Cannula 4.0 05/24/17 20:00 Nasal Cannula 4.0 05/24/17 18:58 81 18 93 Nasal Cannula 4.0 05/24/17 16:00 94 Nasal Cannula 5.0 05/24/17 15:27 38.6 93 20 104/62 (76) 94 Nasal Cannula 5.0 05/24/17 14:34 93 18 93 Room Air 40 05/24/17 12:25 154/78 (103) 86 Nasal Cannula 2.0 05/24/17 12:00 92 Nasal Cannula 3.0 05/24/17 11:36 37.0 89 18 141/69 (93) 97 Physical Exam: General-aaox3 Eyes-no scleral icterus ENT-mmm Neck-supple Lungs-+diffuse wheeze Heart-2/6 systolic murmur, irregularly irregular Abdomen-bs+ s/nt/nd Extremities-no c/c/e Neuro-nonfocal Current Inpatient Medications Medications (Trade) Dose Ordered Sig/Larry Route Start Time Stop Time Status Last Admin Dose Admin Doxycycline Hyclate (Vibramycin Cap) 100 mg BID PO 05/23/17 21:00 05/30/17 20:59 05/25/17 07:55 100 MG Acetaminophen (Tylenol Tab) 650 mg Q4H PRN PO 05/23/17 04:30 06/22/17 04:29 05/24/17 20:24 650 MG Nitroglycerin (Nitrostat Tab) 0.4 mg UD PRN SL 05/23/17 04:30 06/22/17 04:29 Hydromorphone HCl (Dilaudid Inj) 0.5 mg Q3H PRN IV 05/23/17 04:30 06/06/17 04:29 Tramadol HCl (Ultram Tab) not relieved ... Q6H PRN PO 05/23/17 04:30 06/22/17 04:29 Aspirin (Ecotrin Tab) 81 mg QAM PO 05/23/17 09:00 06/22/17 08:59 05/25/17 07:55 81 MG Carvedilol (Coreg Tab) 12.5 mg BID PO 05/23/17 09:00 06/22/17 08:59 05/24/17 20:26 12.5 MG Duloxetine HCl (Cymbalta Cap) 60 mg DAILY PO 05/23/17 09:00 06/22/17 08:59 05/25/17 07:55 60 MG Gabapentin (Neurontin Cap) 200 mg TID PO 05/23/17 09:00 06/22/17 08:59 05/25/17 07:57 200 MG Isosorbide Dinitrate (Isordil Tab) 20 mg TID@0700,1200,1700 PO 05/23/17 07:00 06/22/17 06:59 05/24/17 17:47 20 MG Pantoprazole Sodium (Protonix Tab) 40 mg QAM PO 05/23/17 09:00 06/22/17 08:59 05/25/17 07:56 40 MG Rosuvastatin Calcium (Crestor Tab) 40 mg HS PO 05/23/17 21:00 06/22/17 20:59 05/24/17 21:22 40 MG Prochlorperazine Edisylate 5 mg/ Syringe 5 ml @ 5 mls/min Q6H PRN IV 05/23/17 04:30 06/22/17 04:29 Guaifenesin (Mucinex Contr Rel Tab) 600 mg BID PO 05/23/17 21:00 06/22/17 20:59 05/25/17 07:56 600 MG Ipratropium [place] (Atrovent 0.02% 0.5MG/2.5ML Neb) 0.5 mg Q6R INH 05/23/17 09:00 06/22/17 08:59 05/25/17 07:16 0.5 MG Levalbuterol (Xopenex 1.25MG/ 0.5ML Neb) 1.25 mg Q6R INH 05/23/17 09:00 06/22/17 08:59 05/25/17 07:16 1.25 MG Ipratropium [place] (Atrovent 0.02% 0.5MG/2.5ML Neb) 0.5 mg Q4H PRN INH 05/23/17 05:15 06/22/17 05:14 05/25/17 00:20 0.5 MG Levalbuterol (Xopenex 1.25MG/ 0.5ML Neb) 1.25 mg Q4H PRN INH 05/23/17 05:15 06/22/17 05:14 05/25/17 00:20 1.25 MG Oseltamivir Phosphate (Tamiflu Susp) 30 mg DAILY PO 05/24/17 09:00 05/28/17 08:59 05/25/17 08:03 30 MG Furosemide 40 mg/ Syringe 4 ml @ 4 mls/min DAILY IV 05/23/17 09:00 06/22/17 08:59 Future Hold 05/23/17 10:34 4 MLS/MIN Miscellaneous Information (Consult Glycemic Management Pharmacy) 1 ea UD N/A 05/23/17 09:48 06/22/17 09:47 Cefepime HCl 2000 mg/Syringe 20 ml @ 5 mls/min Q12@0400,1600 IV 05/23/17 16:00 05/30/17 15:59 05/25/17 03:43 5 MLS/MIN Insulin Aspart (novoLOG ASPART) SLIDING SCALE If CARB RA... ACHS SC 05/23/17 21:00 06/22/17 20:59 05/24/17 20:32 9 UNITS Glucose (Glucose 40% Gel) 15-30 GRAMS 15 GRAMS... UD PRN PO 05/24/17 08:30 06/23/17 08:29 Glucose (Glucose Chew Tab) 4-8 Tablets 4 Tabl... UD PRN PO 05/24/17 08:30 06/23/17 08:29 Dextrose (Dextrose 50% 50ML Syringe) 25-50ML OF 50% DW IV FOR... UD PRN IV 05/24/17 08:30 06/23/17 08:29 Glucagon (Glucagon Inj) 1 mg UD PRN SQ 05/24/17 08:30 06/23/17 08:29 Amlodipine Besylate (Norvasc Tab) 5 mg QAM PO 05/25/17 09:00 06/24/17 08:59 Amiodarone HCL/ Dextrose 200 ml @ 16.7 mls/hr [id number] IV 05/24/17 19:11 06/23/17 19:10 05/25/17 08:24 16.7 MLS/HR Heparin Sodium/ Dextrose 500 ml @ 37 mls/hr [id number] PRN IV 05/24/17 13:15 06/23/17 13:14 05/25/17 04:22 37 MLS/HR Insulin Glargine (Lantus Solostar Pen) 60 units HS SC 05/25/17 21:00 06/24/17 20:59 Last 24 Hours Test 05/24/17 11:15 05/24/17 13:04 05/24/17 16:26 05/24/17 17:41 Bedside Glucose 198 mg/dl 197 mg/dl 177 mg/dl Activated Partial Thromboplast Time 28.6 SECONDS Partial Thromboplastin Ratio 1.1 Test 05/24/17 20:08 05/24/17 20:18 05/24/17 23:54 05/25/17 03:46 Bedside Glucose 324 mg/dl 100 mg/dl 70 mg/dl Activated Partial Thromboplast Time 40.0 SECONDS Partial Thromboplastin Ratio 1.5 Test 05/25/17 04:20 05/25/17 07:11 05/25/17 08:19 White Blood Count 4.00 K/uL Red Blood Count 3.49 M/uL Hemoglobin 9.5 g/dL Hematocrit 27.7 % Mean Corpuscular Volume 79.4 fL Mean Corpuscular Hemoglobin 27.2 pg Mean Corpuscular Hemoglobin Concent 34.3 g/dl Platelet Count 87 K/uL Mean Platelet Volume 9.0 fL Neutrophils (%) (Auto) 71.9 % Lymphocytes (%) (Auto) 19.0 % Monocytes (%) (Auto) 8.8 % Eosinophils (%) (Auto) 0.0 % Basophils (%) (Auto) 0.0 % Neutrophils # (Auto) 2.88 K/uL Lymphocytes # (Auto) 0.76 K/uL Monocytes # (Auto) 0.35 K/uL Eosinophils # (Auto) 0.00 K/uL Basophils # (Auto) 0.00 K/uL RDW Standard Deviation 37.9 fL RDW Coefficient of Variation 13.0 % Immature Granulocyte % (Auto) 0.3 % Immature Granulocyte # (Auto) 0.01 K/uL Activated Partial Thromboplast Time > 300.0 SECONDS > 300.0 SECONDS Partial Thromboplastin Ratio > 11.0 > 11.0 Sodium Level 130 mmol/L Potassium Level 3.3 mmol/L Chloride Level 93 mmol/L Carbon Dioxide Level 26 mmol/L Anion Gap 11.0 mmol/L Blood Urea Nitrogen 82 mg/dl Creatinine 3.41 mg/dl Est Creatinine Clear Calc Drug Dose 26.4 ml/min Estimated GFR () 21.0 Estimated GFR (Non- 18.1 BUN/Creatinine Ratio 23.9 Random Glucose 63 mg/dl Calcium Level 7.6 mg/dl Magnesium Level 2.3 mg/dl Assessment & Plan [id number]-oliguric-creatinine continues to worsen. no role for dialysis at this time. pt with wheezing and ideally would benefit from diuresis. however with low blood pressures, will give 250cc fluid bolus. primary hospitalist discussing with critical care possibility of transferring to unit. hypokalemia-careful with worsening kidney function about potassium supplementation. will give 40meq of kdur now.
[2017-05-25] MEDS ORDERED: SODIUM CHLORIDE 0.9% 250ML 250 ML IV SCH (08:45)
[2017-05-25] MEDS ORDERED: POTASSIUM CHLORIDE 10 MEQ TABCR PO ONE (08:50)
--- NOTE | 2017-05-25 08:53 | DIAGNOSTIC IMAGING REPORT ---
CHEST ONE VIEW PORTABLE HISTORY: 62 years-old Male SOB acute shortness of breath COMPARISON: Chest radiograph 05/23/2017 and 04/23/2017 TECHNIQUE: Portable AP view of the chest FINDINGS: Cardiac silhouette is again enlarged, unchanged. Atherosclerosis of the aorta. There is improved aeration of the bilateral lungs however there is persistent mild interstitial coarsening with patchy bilateral alveolar opacities. Alveolar opacities predominantly appear to be within a peripheral midlung zone distribution. Mild blunting of the coccyx for angles suggests trace effusions. Pulmonary vascular congestion. No pneumothorax. Bones of the chest appear grossly intact. IMPRESSION: 1. Improved aeration of the bilateral lungs with persistent mild interstitial coarsening and lateral midlung predominant alveolar opacities suggesting pneumonia and/or pulmonary edema. 2. Cardiomegaly. The above report was generated using voice recognition software. It may contain grammatical, syntax or spelling errors. Electronically signed by: Barry Go M.D. 05/25/2017 8:52 AM Dictated Date/Time: 05/25/2017 8:48 AM
[2017-05-25] MEDS: ACETAMINOPHEN 325 MG TAB PO PRN (09:10)
[2017-05-25 09:15] LABS: PTT PATIENT 177.4 SECONDS (21.0-31.0)
[2017-05-25 10:08] LABS: PTT PATIENT 111.3 SECONDS (21.0-31.0)
--- NOTE | 2017-05-25 10:28 | Critical Care Consultation ---
Critical Care Consultation Date of Consultation: May 25, 2017. Attending Physician: Yovanny Desai MD Reason for Consultation: Respiratory failure, acute kidney injury History of Present Illness This is a 62 year-old male with h/o non-ischemic cardiomyopathy, CKD (baseline creatinine 1.6-2), ARPIT (not tolerating CPAP), DM-2, admitted 2 days ago for shortness of breath, white sputum production, flu-like symptoms. Denies lower extremities swelling. During the hospital stay he was diagnosed with influenza A, was diuresed for suspected pulmonary edema. Developed a-fib with RVR, started on amiodarone with good rate control. Also started on heparin drip, which is on hold for now due to elevated PTT. Last night he fell when he tried to walk, hitting his head (CT brain negative). Patient is still has periods of shortness of breath. Does not tolerate non- invasive ventilation Past Medical/Surgical History Non-obstructive cardiomyopathy (EF 35-40%) Aortic stenosis - moderate LBBB HTN CKD Dyslipidemia DM-2 Asthma Family History Diabetes mellitus SISTER BROTHER FH: CHF (congestive heart failure) MOTHER Hypertension SON Diabetes Social History Smoking Status: Never Smoker Drug Use: none Marital Status: Housing Status: lives with significant other Occupation Status: retired Allergies Coded Allergies: No Known Allergies (Verified , 05/23/17) Home Medications Scheduled Amlodipine (Norvasc), 10 MG PO DAILY Aspirin (Aspirin Ec), 81 MG PO QAM Carvedilol (Carvedilol), 12.5 MG PO BID Cholecalciferol (Vitamin D3), 2,000 INTER.UNIT PO QAM Duloxetine Hcl (Cymbalta), 60 MG PO DAILY Enalapril Maleate (Enalapril Maleate), 1 TAB PO NOON Fluticasone Furoate-Vilanterol (Breo Ellipta), 1 PUFF PO DAILY Furosemide (Lasix), 20 MG PO QAM Gabapentin (Neurontin), 300 MG PO QID Home O2 Therapy (Oxygen), 2 LITERS NA HS Insulin Aspart (Novolog Flexpen), 7 UNITS SQ QAM Insulin Aspart (Novolog Flexpen), 14 UNITS SQ UD Insulin Glargine (Lantus Solostar), 45 UNITS SC HS Isosorbide Dinitrate (Isordil), 20 MG PO TID Pantoprazole (Protonix), 40 MG PO QAM Rosuvastatin Calcium (Crestor), 40 MG PO HS Scheduled PRN Albuterol (Ventolin Hfa), 2 PUFFS INH Q4H PRN for SOB/Wheezing Current Inpatient Medications Current Inpatient Medications Medications (Trade) Dose Ordered Sig/Larry Route Start Time Stop Time Status Last Admin Dose Admin Doxycycline Hyclate (Vibramycin Cap) 100 mg BID PO 05/23/17 21:00 05/30/17 20:59 05/25/17 07:55 100 MG Acetaminophen (Tylenol Tab) 650 mg Q4H PRN PO 05/23/17 04:30 06/22/17 04:29 05/25/17 09:10 650 MG Nitroglycerin (Nitrostat Tab) 0.4 mg UD PRN SL 05/23/17 04:30 06/22/17 04:29 Hydromorphone HCl (Dilaudid Inj) 0.5 mg Q3H PRN IV 05/23/17 04:30 06/06/17 04:29 Tramadol HCl (Ultram Tab) not relieved ... Q6H PRN PO 05/23/17 04:30 06/22/17 04:29 Aspirin (Ecotrin Tab) 81 mg QAM PO 05/23/17 09:00 06/22/17 08:59 05/25/17 07:55 81 MG Carvedilol (Coreg Tab) 12.5 mg BID PO 05/23/17 09:00 06/22/17 08:59 05/24/17 20:26 12.5 MG Duloxetine HCl (Cymbalta Cap) 60 mg DAILY PO 05/23/17 09:00 06/22/17 08:59 05/25/17 07:55 60 MG Gabapentin (Neurontin Cap) 200 mg TID PO 05/23/17 09:00 06/22/17 08:59 05/25/17 07:57 200 MG Isosorbide Dinitrate (Isordil Tab) 20 mg TID@0700,1200,1700 PO 05/23/17 07:00 06/22/17 06:59 05/24/17 17:47 20 MG Pantoprazole Sodium (Protonix Tab) 40 mg QAM PO 05/23/17 09:00 06/22/17 08:59 05/25/17 07:56 40 MG Rosuvastatin Calcium (Crestor Tab) 40 mg HS PO 05/23/17 21:00 06/22/17 20:59 05/24/17 21:22 40 MG Prochlorperazine Edisylate 5 mg/ Syringe 5 ml @ 5 mls/min Q6H PRN IV 05/23/17 04:30 06/22/17 04:29 05/25/17 09:28 5 MLS/MIN Guaifenesin (Mucinex Contr Rel Tab) 600 mg BID PO 05/23/17 21:00 06/22/17 20:59 05/25/17 07:56 600 MG Ipratropium [place] (Atrovent 0.02% 0.5MG/2.5ML Neb) 0.5 mg Q6R INH 05/23/17 09:00 06/22/17 08:59 05/25/17 07:16 0.5 MG Levalbuterol (Xopenex 1.25MG/ 0.5ML Neb) 1.25 mg Q6R INH 05/23/17 09:00 06/22/17 08:59 05/25/17 07:16 1.25 MG Ipratropium [place] (Atrovent 0.02% 0.5MG/2.5ML Neb) 0.5 mg Q4H PRN INH 05/23/17 05:15 06/22/17 05:14 05/25/17 00:20 0.5 MG Levalbuterol (Xopenex 1.25MG/ 0.5ML Neb) 1.25 mg Q4H PRN INH 05/23/17 05:15 06/22/17 05:14 05/25/17 00:20 1.25 MG Oseltamivir Phosphate (Tamiflu Susp) 30 mg DAILY PO 05/24/17 09:00 05/28/17 08:59 05/25/17 08:03 30 MG Furosemide 40 mg/ Syringe 4 ml @ 4 mls/min DAILY IV 05/23/17 09:00 06/22/17 08:59 Future Hold 05/23/17 10:34 4 MLS/MIN Miscellaneous Information (Consult Glycemic Management Pharmacy) 1 ea UD N/A 05/23/17 09:48 06/22/17 09:47 Cefepime HCl 2000 mg/Syringe 20 ml @ 5 mls/min Q12@0400,1600 IV 05/23/17 16:00 05/30/17 15:59 05/25/17 03:43 5 MLS/MIN Insulin Aspart (novoLOG ASPART) SLIDING SCALE If CARB RA... ACHS SC 05/23/17 21:00 06/22/17 20:59 05/24/17 20:32 9 UNITS Glucose (Glucose 40% Gel) 15-30 GRAMS 15 GRAMS... UD PRN PO 05/24/17 08:30 06/23/17 08:29 Glucose (Glucose Chew Tab) 4-8 Tablets 4 Tabl... UD PRN PO 05/24/17 08:30 06/23/17 08:29 Dextrose (Dextrose 50% 50ML Syringe) 25-50ML OF 50% DW IV FOR... UD PRN IV 05/24/17 08:30 06/23/17 08:29 Glucagon (Glucagon Inj) 1 mg UD PRN SQ 05/24/17 08:30 06/23/17 08:29 Amlodipine Besylate (Norvasc Tab) 5 mg QAM PO 05/25/17 09:00 06/24/17 08:59 Amiodarone HCL/ Dextrose 200 ml @ 16.7 mls/hr [id number] IV 05/24/17 19:11 06/23/17 19:10 05/25/17 08:24 16.7 MLS/HR Heparin Sodium/ Dextrose 500 ml @ 37 mls/hr [id number] PRN IV 05/24/17 13:15 06/23/17 13:14 05/25/17 04:22 37 MLS/HR Insulin Glargine (Lantus Solostar Pen) 45 units HS SC 05/25/17 21:00 06/24/17 20:59 Review of Systems per HPI, all other systems reviewed and negative Physical Exam Date Time Temp Pulse Resp B/P (MAP) Pulse Ox O2 Delivery O2 Flow Rate FiO2 05/25/17 08:38 77 26 85/52 (63) 90 Nasal Cannula 5.0 05/25/17 08:20 78 22 89/55 (66) 92 Nasal Cannula 5.0 93/50 (64) 05/25/17 07:42 37.7 87 22 94/56 (69) 93 Nasal Cannula 5.0 05/25/17 07:19 76 20 93 Nasal Cannula 5.0 05/25/17 04:00 Nasal Cannula 5.0 05/25/17 03:46 37.6 74 20 113/62 (79) 92 Nasal Cannula 5.0 05/25/17 01:54 76 20 94 Nasal Cannula 4.0 05/25/17 00:20 90 22 96 Nasal Cannula 4.0 05/24/17 23:59 Nasal Cannula 4.0 05/24/17 23:03 37.4 71 18 96/58 (71) 95 Nasal Cannula 4.0 05/24/17 21:26 37.2 05/24/17 20:12 38.9 95 20 113/70 (84) 93 Nasal Cannula 4.0 05/24/17 20:00 Nasal Cannula 4.0 05/24/17 18:58 81 18 93 Nasal Cannula 4.0 05/24/17 16:00 94 Nasal Cannula 5.0 05/24/17 15:27 38.6 93 20 104/62 (76) 94 Nasal Cannula 5.0 05/24/17 14:34 93 18 93 Room Air 40 05/24/17 12:25 154/78 (103) 86 Nasal Cannula 2.0 05/24/17 12:00 92 Nasal Cannula 3.0 05/24/17 11:36 37.0 89 18 141/69 (93) 97 General Appearance: uncomfortable Head: other (small escoriation over the lateral aspect of left eyebrow) Eyes: PERRLA Neck: trachea midline, no stridor, supple Respiratory: wheezing (b/l) Cardiovasular: irregular rate Abdomen: non tender, no rebound Back: normal inspection Upper Extremities: no edema, other (dry skin) Lower Extremities: no edema, other (dry skin) Neuro: alert, oriented x 3, other (occsaional twitching ) Laboratory Results Last 24 Hours Test 05/24/17 11:15 05/24/17 13:04 05/24/17 16:26 05/24/17 17:41 Bedside Glucose 198 mg/dl 197 mg/dl 177 mg/dl Activated Partial Thromboplast Time 28.6 SECONDS Partial Thromboplastin Ratio 1.1 Test 05/24/17 20:08 05/24/17 20:18 05/24/17 23:54 05/25/17 03:46 Bedside Glucose 324 mg/dl 100 mg/dl 70 mg/dl Activated Partial Thromboplast Time 40.0 SECONDS Partial Thromboplastin Ratio 1.5 Test 05/25/17 04:20 05/25/17 07:11 05/25/17 08:19 05/25/17 09:25 White Blood Count 4.00 K/uL Red Blood Count 3.49 M/uL Hemoglobin 9.5 g/dL Hematocrit 27.7 % Mean Corpuscular Volume 79.4 fL Mean Corpuscular Hemoglobin 27.2 pg Mean Corpuscular Hemoglobin Concent 34.3 g/dl Platelet Count 87 K/uL Mean Platelet Volume 9.0 fL Neutrophils (%) (Auto) 71.9 % Lymphocytes (%) (Auto) 19.0 % Monocytes (%) (Auto) 8.8 % Eosinophils (%) (Auto) 0.0 % Basophils (%) (Auto) 0.0 % Neutrophils # (Auto) 2.88 K/uL Lymphocytes # (Auto) 0.76 K/uL Monocytes # (Auto) 0.35 K/uL Eosinophils # (Auto) 0.00 K/uL Basophils # (Auto) 0.00 K/uL RDW Standard Deviation 37.9 fL RDW Coefficient of Variation 13.0 % Immature Granulocyte % (Auto) 0.3 % Immature Granulocyte # (Auto) 0.01 K/uL Activated Partial Thromboplast Time > 300.0 SECONDS > 300.0 SECONDS 177.4 SECONDS Partial Thromboplastin Ratio > 11.0 > 11.0 6.8 Sodium Level 130 mmol/L Potassium Level 3.3 mmol/L Chloride Level 93 mmol/L Carbon Dioxide Level 26 mmol/L Anion Gap 11.0 mmol/L Blood Urea Nitrogen 82 mg/dl Creatinine 3.41 mg/dl Est Creatinine Clear Calc Drug Dose 26.4 ml/min Estimated GFR () 21.0 Estimated GFR (Non- 18.1 BUN/Creatinine Ratio 23.9 Random Glucose 63 mg/dl Calcium Level 7.6 mg/dl Magnesium Level 2.3 mg/dl Test 05/25/17 09:28 Diagnostic Results CXR today: IMPRESSION: 1. Improved aeration of the bilateral lungs with persistent mild interstitial coarsening and lateral midlung predominant alveolar opacities suggesting pneumonia and/or pulmonary edema. 2. Cardiomegaly. Assessment & Plan 62year old male with h/o CHF, asthma, diabetic, presents with shortness of breath, positive for influenza A. At this point, I believe that the respiratory symptoms are related to intrinsic lung disease secondary to asthma/flu rather than fluid overload Has PAM on CKD. Plan: Hold diuresis Start gentle hydration Continue oseltamivir Also on antibiotic coverage as there is some focality on CXR. On cefepime and doxycycline Check procalcitonin Continue bronchodilators Start iv steroids at this point, has significant bronchospasm. Does not tolerate non-invasive ventilation. Try on high-flow nasal cannula Monitor renal indices, urine output. May require hemodialysis eventually but not for the time being Continue amiodarone drip To hold off on heparin drip for now, discussed with cardiology. May eventually institute full anticoagulation once stabilized Insulin sliding scale for now. Alextus 45 units [id number] Critical care time spent with the patient, reviewing chart, discussing with consultants, greater than 35 minutes Requires ICU monitoring as he is at very high risk for further deterioration, may require intubation, hemodialysis, requires very close monitoring
--- NOTE | 2017-05-25 10:57 | Cardiology Follow-Up ---
Subjective General Date of Service: May 25, 2017. Chief Complaint: follow up shortness of breath Pt evaluation today including: conversation w/ patient, physical exam History of Present Illness The patient is a 62 year old male seen in follow up this am. Overnight BP had become low with SBP in the 80-95 mg Hg range. Pt with dizziness and fell walking in room last night while on heparin gtt for AF with head trauma. CT negative for acute intracranial pathology, does have mild superficial hematoma over left forehead. Patient more tired today. Complains of ongoing shortness of breath. Telemetry reveals patient still in AF, with LBBB, rate however, improved to the 80 bpm on amiodarone infusion. Due to low BP he has been transferred to the first floor ICU. Allergies Coded Allergies: No Known Allergies (Verified , 05/23/17) Social History Smoking Status: Never Smoker Hx Tobacco Use In Past Year?: No Hx Alcohol Use - Type And Amou: No Hx Substance Use - Type And Am: No Problem List Medical Problems: (1) CHF (congestive heart failure) Status: Acute (2) CHF (congestive heart failure) Status: Acute (3) Diffuse abdominal pain Status: Acute (4) Elevated troponin Status: Acute (5) Precordial chest pain Status: Acute (6) Renal cyst Status: Acute (7) Shortness of breath Status: Acute (8) Shortness of breath Status: Acute Physical Exam Vital Signs Last Vital Signs Documentation Date Time Temp Pulse Resp B/P (MAP) Pulse Ox O2 Delivery O2 Flow Rate FiO2 05/25/17 10:00 74 28 96/60 (72) 98 Oxymask 6.0 05/25/17 08:00 40 05/25/17 07:42 37.7 Physical Exam Constitutional: Level of Distress: acutely ill ENMT: TMs normal Neck: supple, trachea midline Lungs: Auscultation: pertinent finding (Decreased BS at bases bilaterally) Cardiovascular: Heart Auscultation: RRR, pertinent finding (/6 SM) Abdomen: Inspection & Palpation: soft, non-distended Extremities: no edema Neurologic: Gait & Station: pertinent finding (mental status appropriate, no focal deficits ) Assessment and Plan Assessment and Plan Impression: 62-year-old male 1. Acute influenza A, resultant cough generalized malaise, respiratory insufficiency 2. Superimposed acute systolic heart failure decompensation, history of left bundle branch block, nonischemic cardiomyopathy, LVEF 30-40% March 2017 3. Acute kidney injury on stage III chronic kidney disease 4. atrial fibrillation , new onset 5. Fall on heparin Plan: Patient had been receiving aggressive diuretic therapy due to concerns of CHF, influenza with concern of cardiac / non cardiac pulmonary edema. His creatinine has trended up and BP trended down with associated dizziness and at present agree that he is intravascularly volume depleted. Holding diuretic therapy. Cautious hydration. BP already trending toward improvement. BP meds held. Heparin gtt on hold given fall, will reassess bleeding risk later today. Nephrology and Critical care input noted and appreciated. Laboratory Results Last 24 Hours Test 05/24/17 11:15 05/24/17 13:04 05/24/17 16:26 05/24/17 17:41 Bedside Glucose 198 mg/dl 197 mg/dl 177 mg/dl Activated Partial Thromboplast Time 28.6 SECONDS Partial Thromboplastin Ratio 1.1 Test 05/24/17 20:08 05/24/17 20:18 05/24/17 23:54 05/25/17 03:46 Bedside Glucose 324 mg/dl 100 mg/dl 70 mg/dl Activated Partial Thromboplast Time 40.0 SECONDS Partial Thromboplastin Ratio 1.5 Test 05/25/17 04:20 05/25/17 06:58 05/25/17 07:11 05/25/17 08:19 White Blood Count 4.00 K/uL Red Blood Count 3.49 M/uL Hemoglobin 9.5 g/dL Hematocrit 27.7 % Mean Corpuscular Volume 79.4 fL Mean Corpuscular Hemoglobin 27.2 pg Mean Corpuscular Hemoglobin Concent 34.3 g/dl Platelet Count 87 K/uL Mean Platelet Volume 9.0 fL Neutrophils (%) (Auto) 71.9 % Lymphocytes (%) (Auto) 19.0 % Monocytes (%) (Auto) 8.8 % Eosinophils (%) (Auto) 0.0 % Basophils (%) (Auto) 0.0 % Neutrophils # (Auto) 2.88 K/uL Lymphocytes # (Auto) 0.76 K/uL Monocytes # (Auto) 0.35 K/uL Eosinophils # (Auto) 0.00 K/uL Basophils # (Auto) 0.00 K/uL RDW Standard Deviation 37.9 fL RDW Coefficient of Variation 13.0 % Immature Granulocyte % (Auto) 0.3 % Immature Granulocyte # (Auto) 0.01 K/uL Activated Partial Thromboplast Time > 300.0 SECONDS > 300.0 SECONDS 177.4 SECONDS Partial Thromboplastin Ratio > 11.0 > 11.0 6.8 Sodium Level 130 mmol/L Potassium Level 3.3 mmol/L Chloride Level 93 mmol/L Carbon Dioxide Level 26 mmol/L Anion Gap 11.0 mmol/L Blood Urea Nitrogen 82 mg/dl Creatinine 3.41 mg/dl Est Creatinine Clear Calc Drug Dose 26.4 ml/min Estimated GFR () 21.0 Estimated GFR (Non- 18.1 BUN/Creatinine Ratio 23.9 Random Glucose 63 mg/dl Calcium Level 7.6 mg/dl Magnesium Level 2.3 mg/dl Bedside Glucose 94 mg/dl Test 05/25/17 09:25 05/25/17 09:28 Activated Partial Thromboplast Time 111.3 SECONDS Partial Thromboplastin Ratio 4.3
--- NOTE | 2017-05-25 11:04 | DIAGNOSTIC IMAGING REPORT ---
HEAD WITHOUT CONTRAST (CT) CT DOSE: 788.63 mGycm HISTORY: Trauma. Mental status change. r/o delayed ICH TECHNIQUE: Multiaxial CT images of the head were performed without the use of intravenous contrast. A dose lowering technique was utilized adhering to the principles of ALARA. Comparison: 05/24/2017 Findings: Mild mucosal thickening of the ethmoid and sphenoid sinuses. All remaining sinuses are clear. The calvarium and skull base are intact. The ventricles and sulci are within normal limits. There is no mass, hematoma, midline shift, or acute infarct. Age-related chronic small vessel change unaltered from the prior study. Impression: Chronic change. No acute process. The above report was generated using voice recognition software. It may contain grammatical, syntax or spelling errors. Electronically signed by: Billy Phillips M.D. 05/25/2017 11:03 AM Dictated Date/Time: 05/25/2017 11:01 AM
[2017-05-25] MEDS: METHYLPREDNISOLONE IV 40 MG in SYRINGE 0 ML IV SCH ×2 (11:16→19:56)
[2017-05-25] MEDS: NORMOSOL R 1,000 ML IV SCH (11:16)
--- NOTE | 2017-05-25 19:03 | Progress Note ---
Internal Med Progress Note Date of Service: May 25, 2017. Provider Documentation: SUBJECTIVE: today morning patinet was not feeling well feeling dizzy and shaky BP running low doesn't want to use bipap kidney function worsening denies chest pain has cough later had mild temp spike was transferred to ICU for close monitor OBJECTIVE: Vital Signs-as noted below Exam: General-alert and oriented. shaky ENT-Normal hearing Neck-no neck masses Lungs-cta b/l no wheezing mild bilateral crackles Heart-S1 and S2 heard regular rate and rhythm, no murmurs Abdomen-soft bowel sounds present no tenderness no distension Extremities-trace pedal edema no erythema Neuro-alert and awake moves extremities Lab data as noted below. ASSESSMENT & PLAN: 62m with hx of chf ef 35-40% presented with acute respiratory failure with congestion on cxr with possible infiltrates and was tested positive for flu. Received iv Lasix. started on Tamiflu and doxycycline and later cefepime was added. Initially required bipap. Second set of troponin was elevated to 1.4. Initially on presentation had some chest pain but got resolved and now has chest pain while coughing. Troponin elevation mostly demand ischemia as per cardiology and it trended down.Yesterday went into rapid adfib and was started on amiodarone drip and iv heparin.Also renal function got worsened on iv Lasix..Today was hypotensive, dizzy and shaky and was transferred to ICU for close monitor. Currently Lasix is stopped and started on gentle fluids and iv steroids initiated for asthma/copd ex. 1. Acute hypoxemic respiratory failure secondary to decompensated heart failure secondary to bronchitis/flu pneumonia on Tamiflu on iv cefepime and doxycycline for any superimposed bacterial pneumonia' lactic acid normal nebs initially was on bipap currently refusing bipap renal function worsened with lasix transferred to icu for close monitor today 05/25/17 hx systolic heart failure 2 to non-ischemic cardiomyopathy EF 40% received iv lasix 60mg yesterday appreciate cardiology inputs holding lasix for worsening renal function transferred to icu for close monitor Hypotension Lasix on hold on gentle fluids close monitor Elevated troponin mostly demand ischemia as per cardiology close f/u. Rapid afib started on amiodarone drip and iv heparin drip as per cardiology on 05/25/[address] head negative currently iv heparin on hold Asthma/chronic obstructive pulmonary disease as per records/ possible untreated ARPIT as per recent outpatient Pulmonary evaluation. Possible exacerbation of chronic lung disease on nebs bipaP prn started on steroids in ICU Hyperglycemic hyperosmolar syndrome secondary to stress of illness/? compliance DM2, insulin requiring, suboptimal control as of recent outpatient HgA1c 8.7 Was ON Insulin gtt.Currently on lantus and iss appreciate pharmacy inputs close monitor while on steroids Hypertension,home meds with hold parameters. hx nonocclusive CAD as per records Home meds. Chronic left bundle branch block Acute renal failure on chronic renal insufficiency secondary to illness. baseline cr 1.7 to 1.9 cr 3.3 today holding lasix. nephrology on board f/u labs Chronic anemia secondary to kidney disease, hemoglobin at baseline. will f/ulabs. Chronic thrombocytopenia. will f/u labs Dvt px scds disposition transferred to ICU for close monitor Vital Signs: Date Time Temp Pulse Resp B/P (MAP) Pulse Ox O2 Delivery O2 Flow Rate FiO2 05/25/17 19:15 76 20 99 Nasal Cannula 45 05/25/17 18:00 83 20 86/59 (68) 100 High Flow Oxygen 05/25/17 16:00 98 High Flow Oxygen 05/25/17 16:00 36.6 77 18 96/69 (78) 98 High Flow Oxygen 05/25/17 14:30 73 18 98 Nasal Cannula 05/25/17 14:00 72 18 85/56 (66) 97 High Flow Oxygen 05/25/17 12:00 99 High Flow Oxygen 05/25/17 12:00 36.9 86 18 89/56 (67) 99 High Flow Oxygen 05/25/17 10:00 74 28 96/60 (72) 98 Oxymask 6.0 05/25/17 08:38 77 26 85/52 (63) 90 Nasal Cannula 5.0 05/25/17 08:20 78 22 89/55 (66) 92 Nasal Cannula 5.0 93/50 (64) 05/25/17 08:00 90 Nasal Cannula 5.0 40 05/25/17 07:42 37.7 87 22 94/56 (69) 93 Nasal Cannula 5.0 05/25/17 07:19 76 20 93 Nasal Cannula 5.0 05/25/17 04:00 Nasal Cannula 5.0 05/25/17 03:46 37.6 74 20 113/62 (79) 92 Nasal Cannula 5.0 05/25/17 01:54 76 20 94 Nasal Cannula 4.0 05/25/17 00:20 90 22 96 Nasal Cannula 4.0 05/24/17 23:59 Nasal Cannula 4.0 05/24/17 23:03 37.4 71 18 96/58 (71) 95 Nasal Cannula 4.0 05/24/17 21:26 37.2 05/24/17 20:12 38.9 95 20 113/70 (84) 93 Nasal Cannula 4.0 Lab Results: Results Past 24 Hours Test 05/24/17 20:08 05/24/17 20:18 05/24/17 23:54 05/25/17 03:46 Range/Units Bedside Glucose 324 100 70 70-99 mg/dl Activated Partial Thromboplast Time 40.0 21.0-31.0 SECONDS Partial Thromboplastin Ratio 1.5 Test 05/25/17 04:20 05/25/17 06:58 05/25/17 07:11 05/25/17 08:19 Range/Units White Blood Count 4.00 4.8-10.8 K/uL Red Blood Count 3.49 4.7-6.1 M/uL Hemoglobin 9.5 14.0-18.0 g/dL Hematocrit 27.7 42-52 % Mean Corpuscular Volume 79.4 80-100 fL Mean Corpuscular Hemoglobin 27.2 25-34 pg Mean Corpuscular Hemoglobin Concent 34.3 32-36 g/dl Platelet Count 87 130-400 K/uL Mean Platelet Volume 9.0 7.4-10.4 fL Neutrophils (%) (Auto) 71.9 % Lymphocytes (%) (Auto) 19.0 % Monocytes (%) (Auto) 8.8 % Eosinophils (%) (Auto) 0.0 % Basophils (%) (Auto) 0.0 % Neutrophils # (Auto) 2.88 1.4-6.5 K/uL Lymphocytes # (Auto) 0.76 1.2-3.4 K/uL Monocytes # (Auto) 0.35 0.11-0.59 K/uL Eosinophils # (Auto) 0.00 0-0.5 K/uL Basophils # (Auto) 0.00 0-0.2 K/uL RDW Standard Deviation 37.9 36.4-46.3 fL RDW Coefficient of Variation 13.0 11.5-14.5 % Immature Granulocyte % (Auto) 0.3 % Immature Granulocyte # (Auto) 0.01 0.00-0.02 K/uL Activated Partial Thromboplast Time > 300.0 > 300.0 177.4 21.0-31.0 SECONDS Partial Thromboplastin Ratio > 11.0 > 11.0 6.8 Sodium Level 130 136-145 mmol/L Potassium Level 3.3 3.5-5.1 mmol/L Chloride Level 93 98-107 mmol/L Carbon Dioxide Level 26 21-32 mmol/L Anion Gap 11.0 3-11 mmol/L Blood Urea Nitrogen 82 7-18 mg/dl Creatinine 3.41 0.60-1.40 mg/dl Est Creatinine Clear Calc Drug Dose 26.4 ml/min Estimated GFR () 21.0 Estimated GFR (Non- 18.1 BUN/Creatinine Ratio 23.9 10-20 Random Glucose 63 70-99 mg/dl Calcium Level 7.6 8.5-10.1 mg/dl Magnesium Level 2.3 1.8-2.4 mg/dl Bedside Glucose 94 70-99 mg/dl Test 05/25/17 09:25 05/25/17 09:28 05/25/17 10:33 05/25/17 11:12 Range/Units Activated Partial Thromboplast Time 111.3 21.0-31.0 SECONDS Partial Thromboplastin Ratio 4.3 Procalcitonin 4.00 0-0.5 ng/ml Bedside Glucose 90 102 70-99 mg/dl Test 05/25/17 15:28 Range/Units Bedside Glucose 112 70-99 mg/dl Microbiology Results 05/25/17 MRSA DNA Surveillance Screen - Final, Complete Specimen Negative for MRSA by DNA Probe
[2017-05-25] MEDS ORDERED: INSULIN GLARGINE SOLOSTAR 100 UNITS/ML 3 ML PEN SC SCH ×3 (21:00)
[2017-05-25] MEDS: ROSUVASTATIN CALCIUM 20 MG TAB PO SCH (21:10)
[2017-05-26] VITALS (41 sets, daily range): BP systolic 71–120; BP diastolic 37–83; PULSE 63–89; TEMP 36.5–36.8; O2SAT 92–100
[2017-05-26] MEDS ORDERED: MODERATE STRESS LEVEL ONE (00:15)
[2017-05-26] MEDS ORDERED: INSULIN PROTOCOL GOAL RANGE ONE ×2 (00:15→11:30)
[2017-05-26] MEDS ORDERED: INSULIN IV INFUSION PROTOCOL SCH (00:19)
[2017-05-26] MEDS ORDERED: INSULIN REGULAR 250 UNITS in SODIUM CHLORIDE 0.9% 250ML 250 ML IV SCH (01:00)
[2017-05-26] MEDS ORDERED: NovoLIN R BOLUS FROM BAG IV ONE (01:00)
[2017-05-26] MEDS: LEVALBUTEROL 1.25MG/0.5ML NEB INH SCH ×4 (01:44→20:00)
[2017-05-26] MEDS: IPRATROPIUM BROMIDE NEB SOLN 0.02% 2.5 ML VIAL INH SCH ×4 (01:44→20:00)
[2017-05-26] MEDS: CEFEPIME IV 2,000 MG in SYRINGE 7.5 ML IV SCH (04:19)
[2017-05-26] MEDS: METHYLPREDNISOLONE IV 40 MG in SYRINGE 0 ML IV SCH ×3 (04:19→21:20)
[2017-05-26 05:03] LABS: HEMATOCRIT 30.2 % (42-52); HEMOGLOBIN 10.4 g/dL (14.0-18.0); MEAN CELL VOLUME 79.3 fL (80-100); MEAN CORPUSCULAR HEMOGLOBIN 27.3 pg (25-34); MEAN CORPUSCULAR HGB CONC 34.4 g/dl (32-36); RED CELL DISTRIBUTION WIDTH CV 12.8 % (11.5-14.5); RED CELL DISTRIBUTION WIDTH SD 37.4 fL (36.4-46.3); WHITE BLOOD COUNT 2.71 K/uL (4.8-10.8)
[2017-05-26 05:24] LABS: MEAN PLATELET VOLUME 9.2 fL (7.4-10.4); PLATELET COUNT 85 K/uL (130-400)
[2017-05-26 05:34] LABS: CALCIUM 7.5 mg/dl (8.5-10.1); CREATININE 3.98 mg/dl (0.60-1.40)
[2017-05-26 05:49] LABS: LYMPH % 10.3 %; LYMPH ABS # 0.28 K/uL (1.2-3.4); MONO % 6.3 %; MONO ABS # 0.17 K/uL (0.11-0.59); NEUT % 83.4 %; NEUT ABS # 2.26 K/uL (1.4-6.5)
[2017-05-26] MEDS: ISOSORBIDE DINITRATE 20 MG TAB PO SCH ×3 (06:37→17:07)
[2017-05-26] MEDS: INSULIN ASPART 100 UNITS/ML 3 ML PEN SC SCH ×2 (08:00→12:00)
[2017-05-26] MEDS: ASPIRIN 81 MG ECTAB PO SCH (08:03)
[2017-05-26] MEDS: AMLODIPINE BESYLATE 5 MG TAB PO SCH (08:03)
[2017-05-26] MEDS: GUAIFENESIN 600 MG TABCR PO SCH ×2 (08:03→21:24)
[2017-05-26] MEDS: DOXYCYCLINE HYCLATE 100 MG CAP PO SCH ×2 (08:03→21:24)
[2017-05-26] MEDS: DULOXETINE HCL 60 MG CAP PO SCH (08:04)
[2017-05-26] MEDS: CARVEDILOL 12.5 MG TAB PO SCH ×2 (08:04→21:23)
[2017-05-26] MEDS: GABAPENTIN 100 MG CAP PO SCH ×3 (08:04→21:23)
[2017-05-26] MEDS: PANTOprazole SOD 40 MG TAB PO SCH (08:04)
[2017-05-26] MEDS: AMIODARONE / D5W 200 ML IV SCH ×2 (08:08→18:55)
[2017-05-26] MEDS: NORMOSOL R 1,000 ML IV SCH (08:08)
[2017-05-26] MEDS: OSELTAMIVIR PHOSPHATE SUSP 30 MG/5 ML UDP PO SCH (08:11)
[2017-05-26] MEDS ORDERED: HEPARIN SOD IV SCH (08:30)
[2017-05-26] MEDS ORDERED: [UNRECOGNIZED DRUG - OTHER] IV SCH (08:30)
[2017-05-26] MEDS ORDERED: CEFEPIME CONSULT ACTIVE PRN (08:45)
--- NOTE | 2017-05-26 09:46 | Progress Note ---
Medicine Progress Note Date & Time of Visit: May 26, 2017 at 09:36. Subjective patient seen resting in bed, alert, comfortable speaks in sentences with no effort states he still has cough, productive of yellow sputum denies chest pain, dyspnea, dizziness, palpitations denies other symptoms Objective Last 8 Hrs Date Time Temp Pulse Resp B/P (MAP) Pulse Ox O2 Delivery O2 Flow Rate FiO2 05/26/17 08:00 36.5 72 18 102/68 (79) 99 BiPAP 40 05/26/17 08:00 BiPAP 40 05/26/17 07:15 80 16 100 BiPAP/CPAP 40 05/26/17 07:00 74 16 102/78 (86) 100 05/26/17 06:00 72 14 113/78 (90) 100 BiPAP 40 05/26/17 04:00 BiPAP 40 05/26/17 04:00 36.6 68 18 81/56 (64) 98 BiPAP 40 05/26/17 02:00 77 14 107/75 (86) 100 BiPAP 40 05/26/17 01:44 76 20 100 BiPAP/CPAP 40 Physical Exam: General- oriented x 3, not in distress, speaks in sentences with no effort Head- atraumatic Eyes- PERRL, EOMI, anicteric ENT- oropharynx clear Neck- supple, no JVD, no adenopathy, no thyromegaly Lungs- scattered wheeze and rhonchi, mild, bilaterally Heart- regular rhythm; no murmur, normal rate Abdomen- normal bowel sounds, soft, nontender Extremities- no pretibial edema, no calf tenderness; peripheral pulses intact Neuro- alert, oriented x 3;no gross focal deficits Skin- warm & dry Laboratory Results: Last 24 Hours Test 05/25/17 10:33 05/25/17 11:12 05/25/17 15:28 05/25/17 20:52 Bedside Glucose 90 mg/dl 102 mg/dl 112 mg/dl 226 mg/dl Test 05/25/17 23:55 05/26/17 02:15 05/26/17 03:21 05/26/17 04:25 Bedside Glucose 213 mg/dl 227 mg/dl 210 mg/dl 205 mg/dl Test 05/26/17 04:40 05/26/17 05:44 White Blood Count 2.71 K/uL Red Blood Count 3.81 M/uL Hemoglobin 10.4 g/dL Hematocrit 30.2 % Mean Corpuscular Volume 79.3 fL Mean Corpuscular Hemoglobin 27.3 pg Mean Corpuscular Hemoglobin Concent 34.4 g/dl Platelet Count 85 K/uL Mean Platelet Volume 9.2 fL Neutrophils (%) (Auto) 83.4 % Lymphocytes (%) (Auto) 10.3 % Monocytes (%) (Auto) 6.3 % Eosinophils (%) (Auto) 0.0 % Basophils (%) (Auto) 0.0 % Neutrophils # (Auto) 2.26 K/uL Lymphocytes # (Auto) 0.28 K/uL Monocytes # (Auto) 0.17 K/uL Eosinophils # (Auto) 0.00 K/uL Basophils # (Auto) 0.00 K/uL RDW Standard Deviation 37.4 fL RDW Coefficient of Variation 12.8 % Immature Granulocyte % (Auto) 0.0 % Immature Granulocyte # (Auto) 0.00 K/uL Activated Partial Thromboplast Time 31.0 SECONDS Partial Thromboplastin Ratio 1.2 Sodium Level 128 mmol/L Potassium Level 4.0 mmol/L Chloride Level 95 mmol/L Carbon Dioxide Level 21 mmol/L Anion Gap 12.0 mmol/L Blood Urea Nitrogen 95 mg/dl Creatinine 3.98 mg/dl Est Creatinine Clear Calc Drug Dose 23.0 ml/min Estimated GFR () 17.4 Estimated GFR (Non- 15.0 BUN/Creatinine Ratio 23.8 Random Glucose 198 mg/dl Calcium Level 7.5 mg/dl Magnesium Level 2.6 mg/dl Bedside Glucose 208 mg/dl Assessment & Plan 62m with hx of chf ef 35-40%, CAD, DM, HTN presenting with shortness of breath. ACUTE HYPOXIC RESPIRATORY FAILURE SECONDARY TO: - on alternating oxymask/Bipap INFLUENZA INFECTION - on Tamiflu BILATERAL PNEUMONIA - obtain sputum culture - on Cefepime + Doxy POSSIBLE ACUTE ON CHRONIC CHF EXACERBATION - s/p IV Lasix held for now due to Acute Renal Failure on CKD POSSIBLE ASTHMA EXACERBATION - possible underlying ARPIT - on Nebs Solumedrol ACUTE RENAL FAILURE ON CKD 4 - s/p IV Lasix given intermittent IV NSS - crea increased to 3.9 Nephrology on board A FIB IN RVR rate controlled on Amiodarone drip, Carvedilol Heparin discontinued HHS, DM 2 on Insulin drip recent outpatient HgA1c 8.7 Hypertension Carvedilol Nonocclusive CAD ASA Chronic anemia secondary to kidney disease Hg 12 to 10 monitor Chronic thrombocytopenia. Plt 130 to 85 monitor Dvt px scds Disposition pending will need PT/OT may need Rehab/SNF upon discharge Current Inpatient Medications: Current Inpatient Medications Medications (Trade) Dose Ordered Sig/Larry Route Start Time Stop Time Status Last Admin Dose Admin Doxycycline Hyclate (Vibramycin Cap) 100 mg BID PO 05/23/17 21:00 05/30/17 20:59 05/26/17 08:03 100 MG Acetaminophen (Tylenol Tab) 650 mg Q4H PRN PO 05/23/17 04:30 06/22/17 04:29 05/25/17 09:10 650 MG Nitroglycerin (Nitrostat Tab) 0.4 mg UD PRN SL 05/23/17 04:30 06/22/17 04:29 Hydromorphone HCl (Dilaudid Inj) 0.5 mg Q3H PRN IV 05/23/17 04:30 06/06/17 04:29 Tramadol HCl (Ultram Tab) not relieved ... Q6H PRN PO 05/23/17 04:30 06/22/17 04:29 Aspirin (Ecotrin Tab) 81 mg QAM PO 05/23/17 09:00 06/22/17 08:59 05/26/17 08:03 81 MG Carvedilol (Coreg Tab) 12.5 mg BID PO 05/23/17 09:00 06/22/17 08:59 05/26/17 08:04 12.5 MG Duloxetine HCl (Cymbalta Cap) 60 mg DAILY PO 05/23/17 09:00 06/22/17 08:59 05/26/17 08:04 60 MG Gabapentin (Neurontin Cap) 200 mg TID PO 05/23/17 09:00 06/22/17 08:59 05/26/17 08:04 200 MG Isosorbide Dinitrate (Isordil Tab) 20 mg TID@0700,1200,1700 PO 05/23/17 07:00 06/22/17 06:59 05/26/17 06:37 20 MG Pantoprazole Sodium (Protonix Tab) 40 mg QAM PO 05/23/17 09:00 06/22/17 08:59 05/26/17 08:04 40 MG Rosuvastatin Calcium (Crestor Tab) 40 mg HS PO 05/23/17 21:00 06/22/17 20:59 05/25/17 21:10 40 MG Prochlorperazine Edisylate 5 mg/ Syringe 5 ml @ 5 mls/min Q6H PRN IV 05/23/17 04:30 06/22/17 04:29 05/25/17 09:28 5 MLS/MIN Guaifenesin (Mucinex Contr Rel Tab) 600 mg BID PO 05/23/17 21:00 06/22/17 20:59 05/26/17 08:03 600 MG Ipratropium [place] (Atrovent 0.02% 0.5MG/2.5ML Neb) 0.5 mg Q6R INH 05/23/17 09:00 06/22/17 08:59 05/26/17 07:15 0.5 MG Levalbuterol (Xopenex 1.25MG/ 0.5ML Neb) 1.25 mg Q6R INH 05/23/17 09:00 06/22/17 08:59 05/26/17 07:15 1.25 MG Ipratropium [place] (Atrovent 0.02% 0.5MG/2.5ML Neb) 0.5 mg Q4H PRN INH 05/23/17 05:15 06/22/17 05:14 05/25/17 00:20 0.5 MG Levalbuterol (Xopenex 1.25MG/ 0.5ML Neb) 1.25 mg Q4H PRN INH 05/23/17 05:15 06/22/17 05:14 05/25/17 00:20 1.25 MG Oseltamivir Phosphate (Tamiflu Susp) 30 mg DAILY PO 05/24/17 09:00 05/28/17 08:59 05/26/17 08:11 30 MG Furosemide 40 mg/ Syringe 4 ml @ 4 mls/min DAILY IV 05/23/17 09:00 06/22/17 08:59 Future Hold 05/23/17 10:34 4 MLS/MIN Miscellaneous Information (Consult Glycemic Management Pharmacy) 1 ea UD N/A 05/23/17 09:48 3/5/18 09:47 Insulin Aspart (novoLOG ASPART) SLIDING SCALE If CARB RA... ACHS SC 05/23/17 21:00 06/22/17 20:59 Future Hold 05/25/17 21:16 5 UNITS Glucose (Glucose 40% Gel) 15-30 GRAMS 15 GRAMS... UD PRN PO 05/24/17 08:30 06/23/17 08:29 Glucose (Glucose Chew Tab) 4-8 Tablets 4 Tabl... UD PRN PO 05/24/17 08:30 06/23/17 08:29 Dextrose (Dextrose 50% 50ML Syringe) 25-50ML OF 50% DW IV FOR... UD PRN IV 05/24/17 08:30 06/23/17 08:29 Glucagon (Glucagon Inj) 1 mg UD PRN SQ 05/24/17 08:30 06/23/17 08:29 Amlodipine Besylate (Norvasc Tab) 5 mg QAM PO 05/25/17 09:00 06/24/17 08:59 05/26/17 08:03 5 MG Amiodarone HCL/ Dextrose 200 ml @ 16.7 mls/hr [id number] IV 05/24/17 19:11 06/23/17 19:10 05/26/17 08:08 16.7 MLS/HR Heparin Sodium/ Dextrose 500 ml @ 37 mls/hr [id number] PRN IV 05/24/17 13:15 06/23/17 13:14 Future Hold 05/25/17 04:22 37 MLS/HR Parenteral Electrolyte Solution 1,000 ml @ 50 mls/hr Q20H IV 05/25/17 10:30 06/24/17 10:29 05/26/17 08:08 50 MLS/HR Methylprednisolone Sodium Succinate 40 mg/Syringe 0.64 ml @ 1.5 mls/min Q8H IV 05/25/17 11:00 06/24/17 10:59 05/26/17 04:19 1.5 MLS/MIN Insulin Aspart (novoLOG ASPART) SLIDING SCALE If CARB RA... 0000,0400 SC 05/26/17 00:00 Future Hold 05/26/17 00:00 4 UNITS Insulin Glargine (Lantus Solostar Pen) SEE PROTOCOL TEXT BID SC 05/25/17 21:00 06/24/17 20:59 Future Hold 05/25/17 21:17 26 UNITS Insulin Human Regular (Insulin IV Infusion Protocol) 1 ea Q15M N/A 05/26/17 00:19 06/25/17 00:18 05/26/17 01:10 1 EA Insulin Aspart (novoLOG ASPART) SLIDING SCALE PCHS SC 05/26/17 08:00 06/25/17 07:59 Insulin Human Regular 250 units/ Sodium Chloride 252.5 ml @ 0 mls/hr Q24H IV 05/26/17 01:00 06/25/17 00:59 05/26/17 01:05 2.8 MLS/HR Cefepime HCl 2000 mg/Syringe 20 ml @ 5 mls/min Q24H IV 05/27/17 04:00 05/30/17 15:59 Cefepime HCl (Consult) 1 ea UD PRN N/A 05/26/17 08:45 06/25/17 08:44 Heparin Sodium (Porcine) (Heparin Sq 5000 Unit/0.5ml) 5,000 unit Q8 SQ 05/26/17 14:00 06/25/17 13:59
--- NOTE | 2017-05-26 09:46 | Cardiology Follow-Up ---
Subjective General Date of Service: May 26, 2017. Chief Complaint: follow up shortness of breath Pt evaluation today including: conversation w/ patient, physical exam History of Present Illness The patient is a 62 year old male seen in follow up. BP had trended toward improvement over last 24 hours with gentle IVF, NS 50 ml/ hr at present. He is back on his BP medications. Telemetry and EKG this am reveal continued AF, rate controlled in 60 bpm range on amiodarone infusion. QRS duration wide at 214 ms. Allergies Coded Allergies: No Known Allergies (Verified , 05/23/17) Social History Smoking Status: Never Smoker Hx Tobacco Use In Past Year?: No Hx Alcohol Use - Type And Amou: No Hx Substance Use - Type And Am: No Problem List Medical Problems: (1) CHF (congestive heart failure) Status: Acute (2) CHF (congestive heart failure) Status: Acute (3) Diffuse abdominal pain Status: Acute (4) Elevated troponin Status: Acute (5) Precordial chest pain Status: Acute (6) Renal cyst Status: Acute (7) Shortness of breath Status: Acute (8) Shortness of breath Status: Acute Physical Exam Vital Signs Last Vital Signs Documentation Date Time Temp Pulse Resp B/P (MAP) Pulse Ox O2 Delivery O2 Flow Rate FiO2 05/26/17 08:00 36.5 72 18 102/68 (79) 99 BiPAP 40 05/25/17 22:00 45.0 Physical Exam Constitutional: Level of Distress: acutely ill ENMT: TMs normal Neck: supple, trachea midline Lungs: Auscultation: pertinent finding (Decreased BS at bases bilaterally) Cardiovascular: Heart Auscultation: RRR, pertinent finding (04/25) Abdomen: Inspection & Palpation: soft, non-distended Extremities: no edema Neurologic: Gait & Station: pertinent finding (mental status appropriate, no focal deficits ) Assessment and Plan Assessment and Plan Impression: 62-year-old male 1. Acute influenza A, resultant cough generalized malaise, respiratory insufficiency 2. Superimposed acute systolic heart failure decompensation, history of left bundle branch block, nonischemic cardiomyopathy, LVEF 30-40% March 2017 3. Acute kidney injury on stage III chronic kidney disease, creatinine up to 3.98 mg/dl this am 05/26 4. atrial fibrillation , new onset Plan: Patient had been receiving aggressive diuretic therapy due to concerns of CHF, influenza with concern of cardiac / non cardiac pulmonary edema. His creatinine has trended up and BP trended down with associated dizziness and at present agree that he is intravascularly volume depleted. Holding diuretic therapy. Cautious hydration performed with interval clinical improvement. Heparin infusion had been started due to stroke prophylaxis for AF, then held after fall and low BP. BP improved, mental status improved, CT of brain normal, will place back on heparin. Pt is not on any QT prolonging medication with exception of amiodarone, which I believe is necessary in terms of rate control to help his hemodynamics and electrolytes are stable. Continue ICU support. Laboratory Results Last 24 Hours Test 05/25/17 10:33 05/25/17 11:12 05/25/17 15:28 05/25/17 20:52 Bedside Glucose 90 mg/dl 102 mg/dl 112 mg/dl 226 mg/dl Test 05/25/17 23:55 05/26/17 02:15 05/26/17 03:21 05/26/17 04:25 Bedside Glucose 213 mg/dl 227 mg/dl 210 mg/dl 205 mg/dl Test 05/26/17 04:40 05/26/17 05:44 White Blood Count 2.71 K/uL Red Blood Count 3.81 M/uL Hemoglobin 10.4 g/dL Hematocrit 30.2 % Mean Corpuscular Volume 79.3 fL Mean Corpuscular Hemoglobin 27.3 pg Mean Corpuscular Hemoglobin Concent 34.4 g/dl Platelet Count 85 K/uL Mean Platelet Volume 9.2 fL Neutrophils (%) (Auto) 83.4 % Lymphocytes (%) (Auto) 10.3 % Monocytes (%) (Auto) 6.3 % Eosinophils (%) (Auto) 0.0 % Basophils (%) (Auto) 0.0 % Neutrophils # (Auto) 2.26 K/uL Lymphocytes # (Auto) 0.28 K/uL Monocytes # (Auto) 0.17 K/uL Eosinophils # (Auto) 0.00 K/uL Basophils # (Auto) 0.00 K/uL RDW Standard Deviation 37.4 fL RDW Coefficient of Variation 12.8 % Immature Granulocyte % (Auto) 0.0 % Immature Granulocyte # (Auto) 0.00 K/uL Activated Partial Thromboplast Time 31.0 SECONDS Partial Thromboplastin Ratio 1.2 Sodium Level 128 mmol/L Potassium Level 4.0 mmol/L Chloride Level 95 mmol/L Carbon Dioxide Level 21 mmol/L Anion Gap 12.0 mmol/L Blood Urea Nitrogen 95 mg/dl Creatinine 3.98 mg/dl Est Creatinine Clear Calc Drug Dose 23.0 ml/min Estimated GFR () 17.4 Estimated GFR (Non- 15.0 BUN/Creatinine Ratio 23.8 Random Glucose 198 mg/dl Calcium Level 7.5 mg/dl Magnesium Level 2.6 mg/dl Bedside Glucose 208 mg/dl
--- NOTE | 2017-05-26 10:05 | Nephrology Progress Note ---
Nephrology Progress Note Date of Service: May 26, 2017. Subjective 62 yo male with flu/afib rate controlled with atn with worsening kidney function. pt was transferred to ICU yesterday and given iv fluids to help support bp. pt symtpomatically feels better today although still very tired and requiring face mask and fell asleep while talking to me. Objective Date Time Temp Pulse Resp B/P (MAP) Pulse Ox O2 Delivery O2 Flow Rate FiO2 05/26/17 08:00 36.5 72 18 102/68 (79) 99 BiPAP 40 05/26/17 08:00 BiPAP 40 05/26/17 07:15 80 16 100 BiPAP/CPAP 40 05/26/17 07:00 74 16 102/78 (86) 100 05/26/17 06:00 72 14 113/78 (90) 100 BiPAP 40 05/26/17 04:00 BiPAP 40 05/26/17 04:00 36.6 68 18 81/56 (64) 98 BiPAP 40 05/26/17 02:00 77 14 107/75 (86) 100 BiPAP 40 05/26/17 01:44 76 20 100 BiPAP/CPAP 40 05/26/17 00:01 36.8 89 14 105/80 (88) 100 BiPAP 40 18 23:59 BiPAP 40 //18 23:51 77 99 40 //18 22:00 82 19 109/77 (88) 99 High Flow Oxygen 45.0 40 2//18 20:00 97 High Flow Oxygen 45.0 40 //18 20:00 37.0 82 20 123/65 (84) 97 High Flow Oxygen 45.0 40 2//18 19:15 76 20 99 Nasal Cannula 45 05/25/18 18:00 83 20 86/59 (68) 100 High Flow Oxygen //18 16:00 98 High Flow Oxygen 2//18 16:00 36.6 77 18 96/69 (78) 98 High Flow Oxygen 2//18 14:30 73 18 98 Nasal Cannula 2//18 14:00 72 18 85/56 (66) 97 High Flow Oxygen 2//18 12:00 99 High Flow Oxygen 2//18 12:00 36.9 86 18 89/56 (67) 99 High Flow Oxygen Physical Exam: General-aaox3 Eyes-no scleral icterus ENT-mmm Neck-supple Lungs-+diffuse wheeze Heart-irregularly irregular Abdomen-bs+ s/nt/nd Extremities-no c/c/e Neuro-nonfocal Current Inpatient Medications Medications (Trade) Dose Ordered Sig/Larry Route Start Time Stop Time Status Last Admin Dose Admin Doxycycline Hyclate (Vibramycin Cap) 100 mg BID PO 05/23/17 21:00 05/30/17 20:59 05/26/17 08:03 100 MG Acetaminophen (Tylenol Tab) 650 mg Q4H PRN PO 05/23/17 04:30 06/22/17 04:29 05/25/17 09:10 650 MG Nitroglycerin (Nitrostat Tab) 0.4 mg UD PRN SL 05/23/17 04:30 06/22/17 04:29 Hydromorphone HCl (Dilaudid Inj) 0.5 mg Q3H PRN IV 05/23/17 04:30 06/06/17 04:29 Tramadol HCl (Ultram Tab) not relieved ... Q6H PRN PO 05/23/17 04:30 06/22/17 04:29 Aspirin (Ecotrin Tab) 81 mg QAM PO 05/23/17 09:00 06/22/17 08:59 05/26/17 08:03 81 MG Carvedilol (Coreg Tab) 12.5 mg BID PO 05/23/17 09:00 06/22/17 08:59 05/26/17 08:04 12.5 MG Duloxetine HCl (Cymbalta Cap) 60 mg DAILY PO 05/23/17 09:00 06/22/17 08:59 05/26/17 08:04 60 MG Gabapentin (Neurontin Cap) 200 mg TID PO 05/23/17 09:00 06/22/17 08:59 05/26/17 08:04 200 MG Isosorbide Dinitrate (Isordil Tab) 20 mg TID@0700,1200,1700 PO 05/23/17 07:00 06/22/17 06:59 05/26/17 06:37 20 MG Pantoprazole Sodium (Protonix Tab) 40 mg QAM PO 05/23/17 09:00 06/22/17 08:59 05/26/17 08:04 40 MG Rosuvastatin Calcium (Crestor Tab) 40 mg HS PO 05/23/17 21:00 06/22/17 20:59 05/25/17 21:10 40 MG Prochlorperazine Edisylate 5 mg/ Syringe 5 ml @ 5 mls/min Q6H PRN IV 05/23/17 04:30 06/22/17 04:29 05/25/17 09:28 5 MLS/MIN Guaifenesin (Mucinex Contr Rel Tab) 600 mg BID PO 05/23/17 21:00 06/22/17 20:59 05/26/17 08:03 600 MG Ipratropium [place] (Atrovent 0.02% 0.5MG/2.5ML Neb) 0.5 mg Q6R INH 05/23/17 09:00 06/22/17 08:59 05/26/17 07:15 0.5 MG Levalbuterol (Xopenex 1.25MG/ 0.5ML Neb) 1.25 mg Q6R INH 05/23/17 09:00 06/22/17 08:59 05/26/17 07:15 1.25 MG Ipratropium [place] (Atrovent 0.02% 0.5MG/2.5ML Neb) 0.5 mg Q4H PRN INH 05/23/17 05:15 06/22/17 05:14 05/25/17 00:20 0.5 MG Levalbuterol (Xopenex 1.25MG/ 0.5ML Neb) 1.25 mg Q4H PRN INH 05/23/17 05:15 06/22/17 05:14 05/25/17 00:20 1.25 MG Oseltamivir Phosphate (Tamiflu Susp) 30 mg DAILY PO 05/24/17 09:00 05/28/17 08:59 05/26/17 08:11 30 MG Furosemide 40 mg/ Syringe 4 ml @ 4 mls/min DAILY IV 05/23/17 09:00 06/22/17 08:59 Future Hold 05/23/17 10:34 4 MLS/MIN Miscellaneous Information (Consult Glycemic Management Pharmacy) 1 ea UD N/A 05/23/17 09:48 06/22/17 09:47 Insulin Aspart (novoLOG ASPART) SLIDING SCALE If CARB RA... ACHS SC 05/23/17 21:00 06/22/17 20:59 Future Hold 05/25/17 21:16 5 UNITS Glucose (Glucose 40% Gel) 15-30 GRAMS 15 GRAMS... UD PRN PO 05/24/17 08:30 06/23/17 08:29 Glucose (Glucose Chew Tab) 4-8 Tablets 4 Tabl... UD PRN PO 05/24/17 08:30 06/23/17 08:29 Dextrose (Dextrose 50% 50ML Syringe) 25-50ML OF 50% DW IV FOR... UD PRN IV 05/24/17 08:30 06/23/17 08:29 Glucagon (Glucagon Inj) 1 mg UD PRN SQ 05/24/17 08:30 06/23/17 08:29 Amlodipine Besylate (Norvasc Tab) 5 mg QAM PO 05/25/17 09:00 06/24/17 08:59 05/26/17 08:03 5 MG Amiodarone HCL/ Dextrose 200 ml @ 16.7 mls/hr [id number] IV 05/24/17 19:11 06/23/17 19:10 05/26/17 08:08 16.7 MLS/HR Heparin Sodium/ Dextrose 500 ml @ 37 mls/hr [id number] PRN IV 05/24/17 13:15 06/23/17 13:14 Future hold 05/25/17 04:22 37 MLS/HR Parenteral Electrolyte Solution 1,000 ml @ 50 mls/hr Q20H IV 05/25/17 10:30 06/24/17 10:29 05/26/17 08:08 50 MLS/HR Methylprednisolone Sodium Succinate 40 mg/Syringe 0.64 ml @ 1.5 mls/min Q8H IV 05/25/17 11:00 06/24/17 10:59 05/26/17 04:19 1.5 MLS/MIN Insulin Aspart (novoLOG ASPART) SLIDING SCALE If CARB RA... 0000,0400 SC 05/26/17 00:00 Future Hold 05/26/17 00:00 4 UNITS Insulin Glargine (Lantus Solostar Pen) SEE PROTOCOL TEXT BID SC 05/25/17 21:00 06/24/17 20:59 Future Hold 05/25/17 21:17 26 UNITS Insulin Human Regular (Insulin IV Infusion Protocol) 1 ea Q15M N/A 05/26/17 00:19 06/25/17 00:18 05/26/17 01:10 1 EA Insulin Aspart (novoLOG ASPART) SLIDING SCALE [facility] 05/26/17 08:00 06/25/17 07:59 Insulin Human Regular 250 units/ Sodium Chloride 252.5 ml @ 0 mls/hr Q24H IV 05/26/17 01:00 06/25/17 00:59 05/26/17 01:05 2.8 MLS/HR Cefepime HCl 2000 mg/Syringe 20 ml @ 5 mls/min Q24H IV 05/27/17 04:00 05/30/17 15:59 Cefepime HCl (Consult) 1 ea UD PRN N/A 05/26/17 08:45 06/25/17 08:44 Last 24 Hours Test 05/25/17 10:33 05/25/17 11:12 05/25/17 15:28 05/25/17 20:52 Bedside Glucose 90 mg/dl 102 mg/dl 112 mg/dl 226 mg/dl Test 05/25/17 23:55 05/26/17 02:15 05/26/17 03:21 05/26/17 04:25 Bedside Glucose 213 mg/dl 227 mg/dl 210 mg/dl 205 mg/dl Test 05/26/17 04:40 05/26/17 05:44 White Blood Count 2.71 K/uL Red Blood Count 3.81 M/uL Hemoglobin 10.4 g/dL Hematocrit 30.2 % Mean Corpuscular Volume 79.3 fL Mean Corpuscular Hemoglobin 27.3 pg Mean Corpuscular Hemoglobin Concent 34.4 g/dl Platelet Count 85 K/uL Mean Platelet Volume 9.2 fL Neutrophils (%) (Auto) 83.4 % Lymphocytes (%) (Auto) 10.3 % Monocytes (%) (Auto) 6.3 % Eosinophils (%) (Auto) 0.0 % Basophils (%) (Auto) 0.0 % Neutrophils # (Auto) 2.26 K/uL Lymphocytes # (Auto) 0.28 K/uL Monocytes # (Auto) 0.17 K/uL Eosinophils # (Auto) 0.00 K/uL Basophils # (Auto) 0.00 K/uL RDW Standard Deviation 37.4 fL RDW Coefficient of Variation 12.8 % Immature Granulocyte % (Auto) 0.0 % Immature Granulocyte # (Auto) 0.00 K/uL Activated Partial Thromboplast Time 31.0 SECONDS Partial Thromboplastin Ratio 1.2 Sodium Level 128 mmol/L Potassium Level 4.0 mmol/L Chloride Level 95 mmol/L Carbon Dioxide Level 21 mmol/L Anion Gap 12.0 mmol/L Blood Urea Nitrogen 95 mg/dl Creatinine 3.98 mg/dl Est Creatinine Clear Calc Drug Dose 23.0 ml/min Estimated GFR () 17.4 Estimated GFR (Non- 15.0 BUN/Creatinine Ratio 23.8 Random Glucose 198 mg/dl Calcium Level 7.5 mg/dl Magnesium Level 2.6 mg/dl Bedside Glucose 208 mg/dl Assessment & Plan [id number]-oliguric-although urinating less each day-creatinine continues to worsen. no role for dialysis at this time. hopefully creatinine will eventually peak and start to trend down. will follow closely. spoke to critical care and cardiology about the patient. will continue supportive measures as pts bp is better and sympomtatically improving.
--- NOTE | 2017-05-26 10:12 | Critical Care Progress Note ---
Critical Care Progress Note Date of Service May 26, 2017. Attending Dr. Eric Subjective States that he feels better today Able to sleep with BIPAP overnight Objective General Appearance: comfortable Head: small excoriation over the lateral aspect of left eyebrow Eyes: PERRLA Neck: trachea midline, no stridor, supple Respiratory: wheezing b/l Cardiovascular: irregular rate Abdomen: non tender, no rebound Back: normal inspection Extremities: no edema, dry skin Neuro: alert, oriented x 3, occasional twitching Assessment & Plan 62 year old male with h/o CHF, asthma, diabetic, presents with shortness of breath, positive for influenza A. At this point, I believe that the respiratory symptoms are related to intrinsic lung disease secondary to asthma/flu rather than fluid overload Has PAM on CKD. Plan: Hold diuresis Continue gentle hydration. Continue oseltamivir Also on antibiotic coverage as there is some focality on CXR. On cefepime and doxycycline Procalcitonin 4.0 Continue bronchodilators Continue IV steroids at this point, has significant bronchospasm. Starting to tolerate NIV. May alternate with high-flow nasal cannula and oxy- mask Monitor renal indices, urine output. May require hemodialysis eventually but not for the time being Continue on IV fluids. Continue amiodarone drip To resume heparin drip today Coreg 12.5 mg bid On an insulin drip now. Critical care time spent with the patient, reviewing chart, discussing with consultants, greater than 30 minutes Requires ICU monitoring as he is still in respiratory failure, PAM, may require intubation, hemodialysis, requires very close monitoring Consults & Procedures Consultants: Cardiology: Dr Sethi Renal: Dr Manley Data Medications: Current Inpatient Medications Medications (Trade) Dose Ordered Sig/Larry Route Start Time Stop Time Status Last Admin Dose Admin Doxycycline Hyclate (Vibramycin Cap) 100 mg BID PO 05/23/17 21:00 05/30/17 20:59 05/26/17 08:03 100 MG Acetaminophen (Tylenol Tab) 650 mg Q4H PRN PO 05/23/17 04:30 06/22/17 04:29 05/25/17 09:10 650 MG Nitroglycerin (Nitrostat Tab) 0.4 mg UD PRN SL 05/23/17 04:30 06/22/17 04:29 Hydromorphone HCl (Dilaudid Inj) 0.5 mg Q3H PRN IV 05/23/17 04:30 06/06/17 04:29 Tramadol HCl (Ultram Tab) not relieved ... Q6H PRN PO 05/23/17 04:30 06/22/17 04:29 Aspirin (Ecotrin Tab) 81 mg QAM PO 05/23/17 09:00 06/22/17 08:59 05/26/17 08:03 81 MG Carvedilol (Coreg Tab) 12.5 mg BID PO 05/23/17 09:00 06/22/17 08:59 05/26/17 08:04 12.5 MG Duloxetine HCl (Cymbalta Cap) 60 mg DAILY PO 05/23/17 09:00 06/22/17 08:59 05/26/17 08:04 60 MG Gabapentin (Neurontin Cap) 200 mg TID PO 05/23/17 09:00 06/22/17 08:59 05/26/17 08:04 200 MG Isosorbide Dinitrate (Isordil Tab) 20 mg TID@0700,1200,1700 PO 05/23/17 07:00 06/22/17 06:59 05/26/17 06:37 20 MG Pantoprazole Sodium (Protonix Tab) 40 mg QAM PO 05/23/17 09:00 06/22/17 08:59 05/26/17 08:04 40 MG Rosuvastatin Calcium (Crestor Tab) 40 mg HS PO 05/23/17 21:00 06/22/17 20:59 05/25/17 21:10 40 MG Prochlorperazine Edisylate 5 mg/ Syringe 5 ml @ 5 mls/min Q6H PRN IV 05/23/17 04:30 06/22/17 04:29 05/25/17 09:28 5 MLS/MIN Guaifenesin (Mucinex Contr Rel Tab) 600 mg BID PO 05/23/17 21:00 06/22/17 20:59 05/26/17 08:03 600 MG Ipratropium [place] (Atrovent 0.02% 0.5MG/2.5ML Neb) 0.5 mg Q6R INH 05/23/17 09:00 06/22/17 08:59 05/26/17 07:15 0.5 MG Levalbuterol (Xopenex 1.25MG/ 0.5ML Neb) 1.25 mg Q6R INH 05/23/17 09:00 06/22/17 08:59 05/26/17 07:15 1.25 MG Ipratropium [place] (Atrovent 0.02% 0.5MG/2.5ML Neb) 0.5 mg Q4H PRN INH 05/23/17 05:15 06/22/17 05:14 05/25/17 00:20 0.5 MG Levalbuterol (Xopenex 1.25MG/ 0.5ML Neb) 1.25 mg Q4H PRN INH 05/23/17 05:15 06/22/17 05:14 05/25/17 00:20 1.25 MG Oseltamivir Phosphate (Tamiflu Susp) 30 mg DAILY PO 05/24/17 09:00 05/28/17 08:59 05/26/17 08:11 30 MG Furosemide 40 mg/ Syringe 4 ml @ 4 mls/min DAILY IV 05/23/17 09:00 06/22/17 08:59 Future Hold 05/23/17 10:34 4 MLS/MIN Miscellaneous Information (Consult Glycemic Management Pharmacy) 1 ea UD N/A 05/23/17 09:48 06/22/17 09:47 Insulin Aspart (novoLOG ASPART) SLIDING SCALE If CARB RA... ACHS SC 05/23/17 21:00 06/22/17 20:59 Future Hold 05/25/17 21:16 5 UNITS Glucose (Glucose 40% Gel) 15-30 GRAMS 15 GRAMS... UD PRN PO 05/24/17 08:30 06/23/17 08:29 Glucose (Glucose Chew Tab) 4-8 Tablets 4 Tabl... UD PRN PO 05/24/17 08:30 06/23/17 08:29 Dextrose (Dextrose 50% 50ML Syringe) 25-50ML OF 50% DW IV FOR... UD PRN IV 05/24/17 08:30 06/23/17 08:29 Glucagon (Glucagon Inj) 1 mg UD PRN SQ 05/24/17 08:30 06/23/17 08:29 Amlodipine Besylate (Norvasc Tab) 5 mg QAM PO 05/25/17 09:00 06/24/17 08:59 05/26/17 08:03 5 MG Amiodarone HCL/ Dextrose 200 ml @ 16.7 mls/hr [id number] IV 05/24/17 19:11 06/23/17 19:10 05/26/17 08:08 16.7 MLS/HR Heparin Sodium/ Dextrose 500 ml @ 37 mls/hr [id number] PRN IV 05/24/17 13:15 06/23/17 13:14 Future hold 05/25/17 04:22 37 MLS/HR Parenteral Electrolyte Solution 1,000 ml @ 50 mls/hr Q20H IV 05/25/17 10:30 06/24/17 10:29 05/26/17 08:08 50 MLS/HR Methylprednisolone Sodium Succinate 40 mg/Syringe 0.64 ml @ 1.5 mls/min Q8H IV 05/25/17 11:00 06/24/17 10:59 05/26/17 04:19 1.5 MLS/MIN Insulin Aspart (novoLOG ASPART) SLIDING SCALE If CARB RA... 0000,0400 SC 05/26/17 00:00 Future Hold 05/26/17 00:00 4 UNITS Insulin Glargine (Lantus Solostar Pen) SEE PROTOCOL TEXT BID SC 05/25/17 21:00 06/24/17 20:59 Future Hold 05/25/17 21:17 26 UNITS Insulin Human Regular (Insulin IV Infusion Protocol) 1 ea Q15M N/A 05/26/17 00:19 06/25/17 00:18 05/26/17 01:10 1 EA Insulin Aspart (novoLOG ASPART) SLIDING SCALE PCHS SC 05/26/17 08:00 06/25/17 07:59 Insulin Human Regular 250 units/ Sodium Chloride 252.5 ml @ 0 mls/hr Q24H IV 05/26/17 01:00 06/25/17 00:59 05/26/17 01:05 2.8 MLS/HR Cefepime HCl 2000 mg/Syringe 20 ml @ 5 mls/min Q24H IV 05/27/17 04:00 05/30/17 15:59 Cefepime HCl (Consult) 1 ea UD PRN N/A 05/26/17 08:45 06/25/17 08:44 Vital Signs: Date Time Temp Pulse Resp B/P (MAP) Pulse Ox O2 Delivery O2 Flow Rate FiO2 05/26/17 08:00 36.5 72 18 102/68 (79) 99 BiPAP 40 05/26/17 08:00 BiPAP 40 05/26/17 07:15 80 16 100 BiPAP/CPAP 40 05/26/17 07:00 74 16 102/78 (86) 100 05/26/17 06:00 72 14 113/78 (90) 100 BiPAP 40 05/26/17 04:00 BiPAP 40 05/26/17 04:00 36.6 68 18 81/56 (64) 98 BiPAP 40 05/26/17 02:00 77 14 107/75 (86) 100 BiPAP 40 05/26/17 01:44 76 20 100 BiPAP/CPAP 40 05/26/17 00:01 36.8 89 14 105/80 (88) 100 BiPAP 40 05/25/17 23:59 BiPAP 40 05/25/17 23:51 77 99 40 05/25/17 22:00 82 19 109/77 (88) 99 High Flow Oxygen 45.0 40 05/25/17 20:00 97 High Flow Oxygen 45.0 40 05/25/17 20:00 37.0 82 20 123/65 (84) 97 High Flow Oxygen 45.0 40 05/25/17 19:15 76 20 99 Nasal Cannula 45 05/25/17 18:00 83 20 86/59 (68) 100 High Flow Oxygen 05/25/17 16:00 98 High Flow Oxygen 05/25/17 16:00 36.6 77 18 96/69 (78) 98 High Flow Oxygen 05/25/17 14:30 73 18 98 Nasal Cannula 05/25/17 14:00 72 18 85/56 (66) 97 High Flow Oxygen 05/25/17 12:00 99 High Flow Oxygen 05/25/17 12:00 36.9 86 18 89/56 (67) 99 High Flow Oxygen 05/25/17 10:00 74 28 96/60 (72) 98 Oxymask 6.0 Laboratory Results: Last 24 Hours Test 05/25/17 10:33 05/25/17 11:12 05/25/17 15:28 05/25/17 20:52 Bedside Glucose 90 mg/dl 102 mg/dl 112 mg/dl 226 mg/dl Test 05/25/17 23:55 05/26/17 02:15 05/26/17 03:21 05/26/17 04:25 Bedside Glucose 213 mg/dl 227 mg/dl 210 mg/dl 205 mg/dl Test 05/26/17 04:40 05/26/17 05:44 White Blood Count 2.71 K/uL Red Blood Count 3.81 M/uL Hemoglobin 10.4 g/dL Hematocrit 30.2 % Mean Corpuscular Volume 79.3 fL Mean Corpuscular Hemoglobin 27.3 pg Mean Corpuscular Hemoglobin Concent 34.4 g/dl Platelet Count 85 K/uL Mean Platelet Volume 9.2 fL Neutrophils (%) (Auto) 83.4 % Lymphocytes (%) (Auto) 10.3 % Monocytes (%) (Auto) 6.3 % Eosinophils (%) (Auto) 0.0 % Basophils (%) (Auto) 0.0 % Neutrophils # (Auto) 2.26 K/uL Lymphocytes # (Auto) 0.28 K/uL Monocytes # (Auto) 0.17 K/uL Eosinophils # (Auto) 0.00 K/uL Basophils # (Auto) 0.00 K/uL RDW Standard Deviation 37.4 fL RDW Coefficient of Variation 12.8 % Immature Granulocyte % (Auto) 0.0 % Immature Granulocyte # (Auto) 0.00 K/uL Activated Partial Thromboplast Time 31.0 SECONDS Partial Thromboplastin Ratio 1.2 Sodium Level 128 mmol/L Potassium Level 4.0 mmol/L Chloride Level 95 mmol/L Carbon Dioxide Level 21 mmol/L Anion Gap 12.0 mmol/L Blood Urea Nitrogen 95 mg/dl Creatinine 3.98 mg/dl Est Creatinine Clear Calc Drug Dose 23.0 ml/min Estimated GFR () 17.4 Estimated GFR (Non- 15.0 BUN/Creatinine Ratio 23.8 Random Glucose 198 mg/dl Calcium Level 7.5 mg/dl Magnesium Level 2.6 mg/dl Bedside Glucose 208 mg/dl
[2017-05-26] MEDS ORDERED: NURSING VERBAL MED ORDER ONE (10:45)
[2017-05-26] MEDS: HEPARIN 25,000 UNIT/500ML D5W 500 ML IV PRN (12:00)
[2017-05-26] MEDS ORDERED: HEPARIN SOD 5000 UNIT/0.5 ML CARP SQ SCH (14:00)
--- NOTE | 2017-05-26 14:15 | Pharmacy Progress Note ---
Glycemic Control Progress Note Date of Service May 26, 2017. Scope Glycemic Pharmacist consulted for glycemic control to write orders per [facility] inpatient glycemic control protocol. Objective Accuchecks BSG (last 24hrs): Test 05/25/17 15:28 05/25/17 20:52 05/25/17 23:55 05/26/17 02:15 Bedside Glucose 112 mg/dl (70-99) 226 mg/dl (70-99) 213 mg/dl (70-99) 227 mg/dl (70-99) Test 05/26/17 03:21 05/26/17 04:25 05/26/17 04:40 05/26/17 05:44 Bedside Glucose 210 mg/dl (70-99) 205 mg/dl (70-99) 208 mg/dl (70-99) Random Glucose 198 mg/dl (70-99) HbA1c: Test 05/23/17 02:40 Hemoglobin A1c 9.2 % (4.5-5.6) H Recent Pertinent Medications The patient is currently receiving: * IV insulin infusion per moderate stress protocol; goal range 140-180mg/dL * Basal insulin: Lantus 26 units SQ given last PM; order is now on hold * Correctional Insulin: Novolog Correction per scale ACHS Goal Range: Low -- mg/dL - High -- mg/dL Correction Factor: -- mg/dL/unit * Prandial insulin: Per carb ratio per insulin drip rate change calculator Outpatient Anti-Diabetic Meds Lantus 45 units Q HS Novolog 7 units w/ breakfast + 14 units w/ lunch + 14 units w/ dinner Assessment & Plan ASSESSMENT: 05/26/17 * Type 2 diabetic who's glycemic control has been erratic due to the addition and removal of steroids during this admission * He appears to be very sensitive to IV solu-medrol administration when tolerating a diet * Yesterday he had been mildly hypoglycemic in the AM, however developed hyperglycemia later in the day as Solu-Medrol 40mg IV Q 8 hours was added * Ultimately he ended up being placed on IV insulin infusion per moderate stress protocol as his BSG rody to >220 despite Lantus + Novolog * His insulin infusion ran at ~3.9 units/hr most of the night and BSGs fell to a desirable range * However at ~1200 today his BSGs remained < 140 off the insulin drip, and remained < 120 for several checks off the drip. Of note, he did receive 26 units of Lantus last PM, although I feel this is likely not enough basal w/ the current steroid dose. * He is eating poorly today. PLAN FOR INPATIENT GLYCEMIC CONTROL: * Hold the insulin drip at this time * Check BSGs Q 4 hrs and cover w/ Novolog SQ * Resume the insulin drip at 2units/hr if BSG > 220, adjust per protocol with a desired goal range of 120 - 200mg/dL * Lantus 15 units with next BSG check, then BID per the following scale based upon a "stressed" home regimen * 0 units if BSG less than 100 * 15 units if BSG 100-120 * 25 units if BSG 120-160 * 35 units if BSG above 160 * Correction factor 12 mg/dl/unit * Carb ratio 1 unit per 4 grams CHO consumed * Goal range Low 120 mg/dL - High 160 mg/dL * Please note that the plan above was derived based on current level of insulin resistance and hospital stress. These recommendations are appropriate for inpatient admission only. Plan of care upon discharge will need to be reassessed to avoid potential outpatient hypo/hyperglycemia. Thank you.
[2017-05-26] MEDS ORDERED: INSULIN GLARGINE SOLOSTAR 100 UNITS/ML 3 ML PEN SC ONE (14:30)
[2017-05-26] MEDS ORDERED: INSULIN ASPART 100 UNITS/ML 3 ML PEN SC SCH ×2 (16:00)
[2017-05-26 18:26] LABS: PTT PATIENT 73.9 SECONDS (21.0-31.0)
[2017-05-26] MEDS ORDERED: INSULIN GLARGINE SOLOSTAR 100 UNITS/ML 3 ML PEN SC SCH (21:00)
[2017-05-26] MEDS: ROSUVASTATIN CALCIUM 20 MG TAB PO SCH (21:21)
[2017-05-26] MEDS: INSULIN REGULAR 250 UNITS in SODIUM CHLORIDE 0.9% 250ML 250 ML IV SCH (21:43)
[2017-05-27] VITALS (26 sets, daily range): BP systolic 82–125; BP diastolic 48–79; PULSE 71–143; TEMP 36.4–37; O2SAT 93–99; BMI 37.3
[2017-05-27 01:26] LABS: PTT PATIENT 138.2 SECONDS (21.0-31.0)
[2017-05-27] MEDS: LEVALBUTEROL 1.25MG/0.5ML NEB INH SCH ×4 (03:00→20:38)
[2017-05-27] MEDS: IPRATROPIUM BROMIDE NEB SOLN 0.02% 2.5 ML VIAL INH SCH ×4 (03:00→20:37)
[2017-05-27 03:08] LABS: PTT PATIENT 89.9 SECONDS (21.0-31.0)
[2017-05-27] MEDS: NORMOSOL R 1,000 ML IV SCH ×2 (03:20→20:59)
[2017-05-27] MEDS: METHYLPREDNISOLONE IV 40 MG in SYRINGE 0 ML IV SCH ×3 (03:20→20:46)
[2017-05-27] MEDS: CEFEPIME IV 2,000 MG in SYRINGE 7.5 ML IV SCH (04:39)
[2017-05-27 05:54] LABS: HEMATOCRIT 27.6 % (42-52); HEMOGLOBIN 9.6 g/dL (14.0-18.0); MEAN CORPUSCULAR HEMOGLOBIN 27.1 pg (25-34); MEAN CORPUSCULAR HGB CONC 34.8 g/dl (32-36); RED CELL DISTRIBUTION WIDTH CV 12.9 % (11.5-14.5); RED CELL DISTRIBUTION WIDTH SD 36.9 fL (36.4-46.3); WHITE BLOOD COUNT 7.49 K/uL (4.8-10.8)
[2017-05-27 06:08] LABS: MEAN PLATELET VOLUME 9.3 fL (7.4-10.4); PLATELET COUNT 95 K/uL (130-400)
[2017-05-27 06:32] LABS: CALCIUM 7.8 mg/dl (8.5-10.1); CREATININE 4.12 mg/dl (0.60-1.40); PHOSPHORUS 6.5 mg/dl (2.5-4.9); POTASSIUM 3.8 mmol/L (3.5-5.1)
[2017-05-27 06:41] LABS: IG# 0.01 K/uL (0.00-0.02); LYMPH % 5.9 %; LYMPH ABS # 0.44 K/uL (1.2-3.4); MONO % 4.8 %; MONO ABS # 0.36 K/uL (0.11-0.59); NEUT % 89.2 %; NEUT ABS # 6.68 K/uL (1.4-6.5)
[2017-05-27 07:00] LABS: HEMOGLOBIN A1C 9.5 % (4.5-5.6)
[2017-05-27] MEDS: ISOSORBIDE DINITRATE 20 MG TAB PO SCH ×3 (07:44→17:00)
[2017-05-27] MEDS: AMIODARONE / D5W 200 ML IV SCH (07:44)
[2017-05-27] MEDS: ASPIRIN 81 MG ECTAB PO SCH (07:45)
[2017-05-27] MEDS: CARVEDILOL 12.5 MG TAB PO SCH ×2 (07:45→20:46)
[2017-05-27] MEDS: DULOXETINE HCL 60 MG CAP PO SCH (07:45)
[2017-05-27] MEDS: GABAPENTIN 100 MG CAP PO SCH ×3 (07:46→20:45)
[2017-05-27] MEDS: GUAIFENESIN 600 MG TABCR PO SCH ×2 (07:46→20:46)
[2017-05-27] MEDS: AMLODIPINE BESYLATE 5 MG TAB PO SCH (07:46)
[2017-05-27] MEDS: PANTOprazole SOD 40 MG TAB PO SCH (07:47)
[2017-05-27] MEDS: DOXYCYCLINE HYCLATE 100 MG CAP PO SCH ×2 (07:47→20:43)
[2017-05-27] MEDS: OSELTAMIVIR PHOSPHATE SUSP 30 MG/5 ML UDP PO SCH (07:49)
[2017-05-27] MEDS: INSULIN ASPART 100 UNITS/ML 3 ML PEN SC SCH ×4 (07:51→20:58)
[2017-05-27] MEDS: HEPARIN 25,000 UNIT/500ML D5W 500 ML IV PRN (07:56)
--- NOTE | 2017-05-27 08:17 | DIAGNOSTIC IMAGING REPORT ---
L FEMUR 2 VIEWS ROUTINE CLINICAL HISTORY: LEFT hip pain/injury trauma. Pain. COMPARISON: None. DISCUSSION: The bones and joint spaces appear intact. There is no evidence of fracture, dislocation or bony disease. There is no evidence for soft tissue swelling. IMPRESSION: Negative study. The above report was generated using voice recognition software. It may contain grammatical, syntax or spelling errors. Electronically signed by: Billy Phillips M.D. 05/27/2017 8:15 AM Dictated Date/Time: 05/27/2017 8:14 AM
--- NOTE | 2017-05-27 08:17 | DIAGNOSTIC IMAGING REPORT ---
PELVIS 1 OR 2 VIEW ROUTINE CLINICAL HISTORY: LEFT hip pain/injury trauma. Pain. COMPARISON: None. DISCUSSION: The bones and joint spaces appear intact. There is no evidence of fracture, dislocation or bony disease. There is no evidence for soft tissue swelling. IMPRESSION: Negative study. The above report was generated using voice recognition software. It may contain grammatical, syntax or spelling errors. Electronically signed by: Billy Phillips M.D. 05/27/2017 8:14 AM Dictated Date/Time: 05/27/2017 8:13 AM
--- NOTE | 2017-05-27 09:16 | Progress Note ---
Medicine Progress Note Date & Time of Visit: May 27, 2017 at 09:07. Subjective seen resting in bed, comfortable alert, bright states he feels somewhat better compared to yesterday denies shortness of breath, has less cough no chest pain, palpitations, dizziness urinating ok no nausea, pruritus reports L groin pain, worse with knee flexion no other symptoms Objective Last 8 Hrs Date Time Temp Pulse Resp B/P (MAP) Pulse Ox O2 Delivery O2 Flow Rate FiO2 05/27/17 07:29 105 18 97 Nasal Cannula 2.0 05/27/17 06:00 75 22 82/65 (71) 97 Nasal Cannula 2.0 05/27/17 04:00 36.4 71 14 104/67 (79) 98 Nasal Cannula 2.0 05/27/17 04:00 Nasal Cannula 2.0 05/27/17 02:00 78 18 108/79 (89) 96 Nasal Cannula 2.0 Physical Exam: General- oriented x 3, not in distress, speaks in sentences with no effort Eyes- anicteric Neck- supple, no JVD Lungs- scattered occasional rhonchi Heart- irregular rhythm; no murmur, normal rate Abdomen- normal bowel sounds, soft, nontender Extremities- no pretibial edema, no calf tenderness; peripheral pulses intact Neuro- alert, oriented x 3;no gross focal deficits Skin- warm & dry Laboratory Results: Last 24 Hours Test 05/26/17 10:14 05/26/17 10:41 05/26/17 11:27 05/26/17 12:05 Bedside Glucose 140 mg/dl 108 mg/dl 102 mg/dl Prothrombin Time 11.0 SECONDS Prothromb Time International Ratio 1.0 Test 05/26/17 13:03 05/26/17 15:58 05/26/17 17:52 05/26/17 20:52 Bedside Glucose 109 mg/dl 151 mg/dl 242 mg/dl Activated Partial Thromboplast Time 73.9 SECONDS Partial Thromboplastin Ratio 2.8 Test 05/26/17 23:04 05/27/17 00:14 05/27/17 00:31 05/27/17 01:05 Bedside Glucose 268 mg/dl 289 mg/dl 276 mg/dl Activated Partial Thromboplast Time 138.2 SECONDS Partial Thromboplastin Ratio 5.3 Test 05/27/17 02:07 05/27/17 02:35 05/27/17 03:06 05/27/17 04:07 Bedside Glucose 302 mg/dl 278 mg/dl 245 mg/dl Activated Partial Thromboplast Time 89.9 SECONDS Partial Thromboplastin Ratio 3.5 Test 05/27/17 05:07 05/27/17 05:37 05/27/17 06:06 Bedside Glucose 216 mg/dl 213 mg/dl White Blood Count 7.49 K/uL Red Blood Count 3.54 M/uL Hemoglobin 9.6 g/dL Hematocrit 27.6 % Mean Corpuscular Volume 78.0 fL Mean Corpuscular Hemoglobin 27.1 pg Mean Corpuscular Hemoglobin Concent 34.8 g/dl Platelet Count 95 K/uL Mean Platelet Volume 9.3 fL Neutrophils (%) (Auto) 89.2 % Lymphocytes (%) (Auto) 5.9 % Monocytes (%) (Auto) 4.8 % Eosinophils (%) (Auto) 0.0 % Basophils (%) (Auto) 0.0 % Neutrophils # (Auto) 6.68 K/uL Lymphocytes # (Auto) 0.44 K/uL Monocytes # (Auto) 0.36 K/uL Eosinophils # (Auto) 0.00 K/uL Basophils # (Auto) 0.00 K/uL RDW Standard Deviation 36.9 fL RDW Coefficient of Variation 12.9 % Immature Granulocyte % (Auto) 0.1 % Immature Granulocyte # (Auto) 0.01 K/uL Sodium Level 131 mmol/L Potassium Level 3.8 mmol/L Chloride Level 98 mmol/L Carbon Dioxide Level 20 mmol/L Anion Gap 13.0 mmol/L Blood Urea Nitrogen 105 mg/dl Creatinine 4.12 mg/dl Est Creatinine Clear Calc Drug Dose 22.1 ml/min Estimated GFR () 16.7 Estimated GFR (Non- 14.4 BUN/Creatinine Ratio 25.5 Random Glucose 214 mg/dl Estimated Average Glucose 226 mg/dl Hemoglobin A1c 9.5 % Calcium Level 7.8 mg/dl Phosphorus Level 6.5 mg/dl Procalcitonin 1.98 ng/ml Assessment & Plan 62m with hx of chf ef 35-40%, CAD, DM, HTN presenting with shortness of breath. ACUTE HYPOXIC RESPIRATORY FAILURE SECONDARY TO: - now on 2 L of NC afebrile, clinically improving INFLUENZA INFECTION - on Tamiflu BILATERAL PNEUMONIA - obtain sputum culture - on Cefepime + Doxy POSSIBLE ACUTE ON CHRONIC CHF EXACERBATION - s/p IV Lasix held for now due to Acute Renal Failure on CKD POSSIBLE ASTHMA EXACERBATION - possible underlying ARPIT - on Nebs Solumedrol ACUTE RENAL FAILURE ON CKD 4 - s/p IV Lasix given intermittent IV NSS - crea increased to 3.9 --> now 4 good urine output monitor closely Nephrology on board A FIB IN RVR rate controlled on Amiodarone drip, Carvedilol Heparin discontinued HHS, DM 2 a1c 9.5 Hypertension d/c Amlodipine continue Carvedilol Nonocclusive CAD ASA Chronic anemia secondary to kidney disease Hg 12 to 10 monitor Chronic thrombocytopenia. Plt 130 to 85--> 95 monitor Dvt px scds hold heparin as Plt <100 Disposition pending will need PT/OT may need Rehab/SNF upon discharge Current Inpatient Medications: Current Inpatient Medications Medications (Trade) Dose Ordered Sig/Larry Route Start Time Stop Time Status Last Admin Dose Admin Doxycycline Hyclate (Vibramycin Cap) 100 mg BID PO 05/23/17 21:00 05/30/17 20:59 05/27/17 07:47 100 MG Acetaminophen (Tylenol Tab) 650 mg Q4H PRN PO 05/23/17 04:30 06/22/17 04:29 05/25/17 09:10 650 MG Nitroglycerin (Nitrostat Tab) 0.4 mg UD PRN SL 05/23/17 04:30 06/22/17 04:29 Hydromorphone HCl (Dilaudid Inj) 0.5 mg Q3H PRN IV 05/23/17 04:30 06/06/17 04:29 Tramadol HCl (Ultram Tab) not relieved ... Q6H PRN PO 05/23/17 04:30 06/22/17 04:29 Aspirin (Ecotrin Tab) 81 mg QAM PO 05/23/17 09:00 06/22/17 08:59 05/27/17 07:45 81 MG Carvedilol (Coreg Tab) 12.5 mg BID PO 05/23/17 09:00 06/22/17 08:59 05/27/17 07:45 12.5 MG Duloxetine HCl (Cymbalta Cap) 60 mg DAILY PO 05/23/17 09:00 06/22/17 08:59 2/7/18 07:45 60 MG Gabapentin (Neurontin Cap) 200 mg TID PO 05/23/17 09:00 06/22/17 08:59 05/27/17 07:46 200 MG Isosorbide Dinitrate (Isordil Tab) 20 mg TID@0700,1200,1700 PO 05/23/17 07:00 06/22/17 06:59 05/27/17 07:44 20 MG Pantoprazole Sodium (Protonix Tab) 40 mg QAM PO 05/23/17 09:00 06/22/17 08:59 05/27/17 07:47 40 MG Rosuvastatin Calcium (Crestor Tab) 40 mg HS PO 05/23/17 21:00 06/22/17 20:59 05/26/17 21:21 40 MG Prochlorperazine Edisylate 5 mg/ Syringe 5 ml @ 5 mls/min Q6H PRN IV 05/23/17 04:30 06/22/17 04:29 05/25/17 09:28 5 MLS/MIN Guaifenesin (Mucinex Contr Rel Tab) 600 mg BID PO 05/23/17 21:00 06/22/17 20:59 05/27/17 07:46 600 MG Ipratropium [place] (Atrovent 0.02% 0.5MG/2.5ML Neb) 0.5 mg Q6R INH 05/23/17 09:00 06/22/17 08:59 05/27/17 07:29 0.5 MG Levalbuterol (Xopenex 1.25MG/ 0.5ML Neb) 1.25 mg Q6R INH 05/23/17 09:00 06/22/17 08:59 05/27/17 07:29 1.25 MG Ipratropium [place] (Atrovent 0.02% 0.5MG/2.5ML Neb) 0.5 mg Q4H PRN INH 05/23/17 05:15 06/22/17 05:14 05/25/17 00:20 0.5 MG Levalbuterol (Xopenex 1.25MG/ 0.5ML Neb) 1.25 mg Q4H PRN INH 05/23/17 05:15 06/22/17 05:14 05/25/17 00:20 1.25 MG Oseltamivir Phosphate (Tamiflu Susp) 30 mg DAILY PO 05/24/17 09:00 05/28/17 08:59 05/27/17 07:49 30 MG Furosemide 40 mg/ Syringe 4 ml @ 4 mls/min DAILY IV 05/23/17 09:00 06/22/17 08:59 Future Hold 05/23/17 10:34 4 MLS/MIN Miscellaneous Information (Consult Glycemic Management Pharmacy) 1 ea UD N/A 05/23/17 09:48 06/22/17 09:47 Glucose (Glucose 40% Gel) 15-30 GRAMS 15 GRAMS... UD PRN PO 05/24/17 08:30 06/23/17 08:29 Glucose (Glucose Chew Tab) 4-8 Tablets 4 Tabl... UD PRN PO 05/24/17 08:30 06/23/17 08:29 Dextrose (Dextrose 50% 50ML Syringe) 25-50ML OF 50% DW IV FOR... UD PRN IV 05/24/17 08:30 06/23/17 08:29 Glucagon (Glucagon Inj) 1 mg UD PRN SQ 05/24/17 08:30 06/23/17 08:29 Amlodipine Besylate (Norvasc Tab) 5 mg QAM PO 05/25/17 09:00 06/24/17 08:59 05/27/17 07:46 5 MG Amiodarone HCL/ Dextrose 200 ml @ 16.7 mls/hr [id number] IV 05/24/17 19:11 06/23/17 19:10 05/27/17 07:44 16.7 MLS/HR Heparin Sodium/ Dextrose 500 ml @ 25 mls/hr Q20H PRN IV 05/24/17 13:15 06/23/17 13:14 Future hold 05/27/17 07:56 25 MLS/HR Parenteral Electrolyte Solution 1,000 ml @ 50 mls/hr Q20H IV 05/25/17 10:30 06/24/17 10:29 05/27/17 03:20 50 MLS/HR Methylprednisolone Sodium Succinate 40 mg/Syringe 0.64 ml @ 1.5 mls/min Q8H IV 05/25/17 11:00 06/24/17 10:59 05/27/17 03:20 1.5 MLS/MIN Cefepime HCl 2000 mg/Syringe 20 ml @ 5 mls/min Q24H IV 05/27/17 04:00 05/30/17 15:59 05/27/17 04:39 5 MLS/MIN Cefepime HCl (Consult) 1 ea UD PRN N/A 05/26/17 08:45 06/25/17 08:44 Insulin Human Regular 250 units/ Sodium Chloride 252.5 ml @ 0 mls/hr Q24H IV 05/26/17 21:30 06/25/17 21:29 05/26/17 21:43 2 MLS/HR Insulin Aspart (novoLOG ASPART) SLIDING SCALE PCHS SC 05/27/17 08:00 06/26/17 07:59
[2017-05-27 09:50] LABS: PTT PATIENT 90.3 SECONDS (21.0-31.0)
--- NOTE | 2017-05-27 11:07 | Cardiology Follow-Up ---
Subjective General Date of Service: May 27, 2017. Chief Complaint: follow up shortness of breath Pt evaluation today including: conversation w/ patient, physical exam History of Present Illness The patient is a 62 year old male seen in follow up. Patient's cough is improved. Respiratory status and BP improved. Only subjective complain is left hip / groin pain. 2.2 L of urine output noted yesterday. Creatinine still trending upward slightly at 4.12 compared to 3.98 yesterday and 2.38 mg/dl on admission. Allergies Coded Allergies: No Known Allergies (Verified , 05/23/17) Social History Smoking Status: Never Smoker Hx Tobacco Use In Past Year?: No Hx Alcohol Use - Type And Amou: No Hx Substance Use - Type And Am: No Problem List Medical Problems: (1) CHF (congestive heart failure) Status: Acute (2) CHF (congestive heart failure) Status: Acute (3) Diffuse abdominal pain Status: Acute (4) Elevated troponin Status: Acute (5) Precordial chest pain Status: Acute (6) Renal cyst Status: Acute (7) Shortness of breath Status: Acute (8) Shortness of breath Status: Acute Physical Exam Vital Signs Last Vital Signs Documentation Date Time Temp Pulse Resp B/P (MAP) Pulse Ox O2 Delivery O2 Flow Rate FiO2 05/27/17 10:00 81 18 102/48 (66) 96 Nasal Cannula 2.0 05/27/17 08:00 37.0 05/26/17 08:00 40 Physical Exam Constitutional: Level of Distress: acutely ill ENMT: TMs normal Neck: supple, trachea midline Lungs: Auscultation: pertinent finding (Decreased BS at bases bilaterally-improved) Cardiovascular: Heart Auscultation: RRR, pertinent finding (04/25) Abdomen: Inspection & Palpation: soft, non-distended Extremities: no edema Neurologic: Gait & Station: pertinent finding (mental status appropriate, no focal deficits ) Assessment and Plan Assessment and Plan Impression: 62-year-old male 1. Acute influenza A, resultant cough generalized malaise, respiratory insufficiency 2. Superimposed acute systolic heart failure decompensation, history of left bundle branch block, nonischemic cardiomyopathy, LVEF 30-40% March 2017 3. Acute kidney injury (nonoliguric) on stage III chronic kidney disease, 4. atrial fibrillation , new onset Plan: Transition IV amiodarone to oral. Holding furosemide. Continue IV heparin. nursing home will need oral anticoagulation, however, will continue heparin until need for further invasive procedures is clear. Laboratory Results Last 24 Hours Test 05/26/17 11:27 05/26/17 12:05 05/26/17 13:03 05/26/17 15:58 Bedside Glucose 108 mg/dl 102 mg/dl 109 mg/dl 151 mg/dl Test 05/26/17 17:52 05/26/17 20:52 05/26/17 23:04 05/27/17 00:14 Activated Partial Thromboplast Time 73.9 SECONDS Partial Thromboplastin Ratio 2.8 Bedside Glucose 242 mg/dl 268 mg/dl 289 mg/dl Test 05/27/17 00:31 05/27/17 01:05 05/27/17 02:07 05/27/17 02:35 Activated Partial Thromboplast Time 138.2 SECONDS 89.9 SECONDS Partial Thromboplastin Ratio 5.3 3.5 Bedside Glucose 276 mg/dl 302 mg/dl Test 05/27/17 03:06 05/27/17 04:07 05/27/17 05:07 05/27/17 05:37 Bedside Glucose 278 mg/dl 245 mg/dl 216 mg/dl White Blood Count 7.49 K/uL Red Blood Count 3.54 M/uL Hemoglobin 9.6 g/dL Hematocrit 27.6 % Mean Corpuscular Volume 78.0 fL Mean Corpuscular Hemoglobin 27.1 pg Mean Corpuscular Hemoglobin Concent 34.8 g/dl Platelet Count 95 K/uL Mean Platelet Volume 9.3 fL Neutrophils (%) (Auto) 89.2 % Lymphocytes (%) (Auto) 5.9 % Monocytes (%) (Auto) 4.8 % Eosinophils (%) (Auto) 0.0 % Basophils (%) (Auto) 0.0 % Neutrophils # (Auto) 6.68 K/uL Lymphocytes # (Auto) 0.44 K/uL Monocytes # (Auto) 0.36 K/uL Eosinophils # (Auto) 0.00 K/uL Basophils # (Auto) 0.00 K/uL RDW Standard Deviation 36.9 fL RDW Coefficient of Variation 12.9 % Immature Granulocyte % (Auto) 0.1 % Immature Granulocyte # (Auto) 0.01 K/uL Sodium Level 131 mmol/L Potassium Level 3.8 mmol/L Chloride Level 98 mmol/L Carbon Dioxide Level 20 mmol/L Anion Gap 13.0 mmol/L Blood Urea Nitrogen 105 mg/dl Creatinine 4.12 mg/dl Est Creatinine Clear Calc Drug Dose 22.1 ml/min Estimated GFR () 16.7 Estimated GFR (Non- 14.4 BUN/Creatinine Ratio 25.5 Random Glucose 214 mg/dl Estimated Average Glucose 226 mg/dl Hemoglobin A1c 9.5 % Calcium Level 7.8 mg/dl Phosphorus Level 6.5 mg/dl Procalcitonin 1.98 ng/ml Test 05/27/17 06:06 05/27/17 09:12 Bedside Glucose 213 mg/dl Activated Partial Thromboplast Time 90.3 SECONDS Partial Thromboplastin Ratio 3.5
[2017-05-27] MEDS: AMIODARONE 200 MG TAB PO SCH ×2 (11:33→17:37)
--- NOTE | 2017-05-27 11:39 | Critical Care Progress Note ---
Critical Care Progress Note Date of Service May 27, 2017. Attending Dr. Eric Subjective Doing better from a respiratory standpoint. I observed him during sleep, was quite comfortable on nasal cannula. C/o some right hip pain Objective General Appearance: comfortable. Head: small excoriation over the lateral aspect of left eyebrow. Eyes: PERRLA Neck: trachea midline, no stridor, supple Respiratory: No wheezing Cardiovascular: irregular rate Abdomen: non tender, no rebound. Back: normal inspection. Extremities: no edema, dry skin. Left hip normal in appearance, no ecchymosis, no hematoma Neuro: alert, oriented x 3, occasional twitching Assessment & Plan 62 year old male with h/o CHF, asthma, diabetic, presents with shortness of breath, positive for influenza A. At this point, I believe that the respiratory symptoms are related to intrinsic lung disease secondary to asthma/flu rather than fluid overload Has PAM on CKD. Plan: Holding diuresis Continue gentle hydration. Continue oseltamivir Also on antibiotic coverage as there is some focality on CXR. On cefepime and doxycycline Continue bronchodilators Continue IV steroids at this point. Bronchospasm improved significantly. Convert to PO tomorrow Now tolerating nasal cannula Monitor renal indices, urine output. May require hemodialysis eventually Continue on IV fluids. Transition amiodarone drip to PO route To resume heparin drip today Coreg 12.5 mg bid On an insulin drip now. Critical care time spent with the patient, reviewing chart, discussing with consultants, greater than 30 minutes Requires ICU monitoring as he is still in respiratory failure, PAM, may require intubation, hemodialysis, requires very close monitoring Consults & Procedures Consultants: Cardiology: Dr Sethi Renal: Dr Manley Data Medications: Current Inpatient Medications Medications (Trade) Dose Ordered Sig/Larry Route Start Time Stop Time Status Last Admin Dose Admin Doxycycline Hyclate (Vibramycin Cap) 100 mg BID PO 05/23/17 21:00 05/30/17 20:59 05/27/17 07:47 100 MG Acetaminophen (Tylenol Tab) 650 mg Q4H PRN PO 05/23/17 04:30 06/22/17 04:29 05/25/17 09:10 650 MG Nitroglycerin (Nitrostat Tab) 0.4 mg UD PRN SL 05/23/17 04:30 06/22/17 04:29 Hydromorphone HCl (Dilaudid Inj) 0.5 mg Q3H PRN IV 05/23/17 04:30 06/06/17 04:29 Tramadol HCl (Ultram Tab) not relieved ... Q6H PRN PO 05/23/17 04:30 06/22/17 04:29 Aspirin (Ecotrin Tab) 81 mg QAM PO 05/23/17 09:00 06/22/17 08:59 05/27/17 07:45 81 MG Carvedilol (Coreg Tab) 12.5 mg BID PO 05/23/17 09:00 06/22/17 08:59 05/27/17 07:45 12.5 MG Duloxetine HCl (Cymbalta Cap) 60 mg DAILY PO 05/23/17 09:00 06/22/17 08:59 05/27/17 07:45 60 MG Gabapentin (Neurontin Cap) 200 mg TID PO 05/23/17 09:00 06/22/17 08:59 05/27/17 07:46 200 MG Isosorbide Dinitrate (Isordil Tab) 20 mg TID@0700,1200,1700 PO 05/23/17 07:00 06/22/17 06:59 05/27/17 07:44 20 MG Pantoprazole Sodium (Protonix Tab) 40 mg QAM PO 05/23/17 09:00 06/22/17 08:59 05/27/17 07:47 40 MG Rosuvastatin Calcium (Crestor Tab) 40 mg HS PO 05/23/17 21:00 06/22/17 20:59 05/26/17 21:21 40 MG Prochlorperazine Edisylate 5 mg/ Syringe 5 ml @ 5 mls/min Q6H PRN IV 05/23/17 04:30 06/22/17 04:29 05/25/17 09:28 5 MLS/MIN Guaifenesin (Mucinex Contr Rel Tab) 600 mg BID PO 05/23/17 21:00 06/22/17 20:59 05/27/17 07:46 600 MG Ipratropium [place] (Atrovent 0.02% 0.5MG/2.5ML Neb) 0.5 mg Q6R INH 05/23/17 09:00 06/22/17 08:59 05/27/17 07:29 0.5 MG Levalbuterol (Xopenex 1.25MG/ 0.5ML Neb) 1.25 mg Q6R INH 05/23/17 09:00 06/22/17 08:59 05/27/17 07:29 1.25 MG Ipratropium [place] (Atrovent 0.02% 0.5MG/2.5ML Neb) 0.5 mg Q4H PRN INH 05/23/17 05:15 06/22/17 05:14 05/25/17 00:20 0.5 MG Levalbuterol (Xopenex 1.25MG/ 0.5ML Neb) 1.25 mg Q4H PRN INH 05/23/17 05:15 06/22/17 05:14 05/25/17 00:20 1.25 MG Oseltamivir Phosphate (Tamiflu Susp) 30 mg DAILY PO 05/24/17 09:00 05/28/17 08:59 05/27/17 07:49 30 MG Furosemide 40 mg/ Syringe 4 ml @ 4 mls/min DAILY IV 05/23/17 09:00 06/22/17 08:59 Future Hold 05/23/17 10:34 4 MLS/MIN Miscellaneous Information (Consult Glycemic Management Pharmacy) 1 ea UD N/A 05/23/17 09:48 06/22/17 09:47 Glucose (Glucose 40% Gel) 15-30 GRAMS 15 GRAMS... UD PRN PO 05/24/17 08:30 06/23/17 08:29 Glucose (Glucose Chew Tab) 4-8 Tablets 4 Tabl... UD PRN PO 05/24/17 08:30 06/23/17 08:29 Dextrose (Dextrose 50% 50ML Syringe) 25-50ML OF 50% DW IV FOR... UD PRN IV 05/24/17 08:30 06/23/17 08:29 Glucagon (Glucagon Inj) 1 mg UD PRN SQ 05/24/17 08:30 06/23/17 08:29 Amlodipine Besylate (Norvasc Tab) 5 mg QAM PO 05/25/17 09:00 06/24/17 08:59 05/27/17 07:46 5 MG Heparin Sodium/ Dextrose 500 ml @ 25 mls/hr Q20H PRN IV 05/24/17 13:15 06/23/17 13:14 Future hold 05/27/17 07:56 25 MLS/HR Parenteral Electrolyte Solution 1,000 ml @ 50 mls/hr Q20H IV 05/25/17 10:30 06/24/17 10:29 05/27/17 03:20 50 MLS/HR Methylprednisolone Sodium Succinate 40 mg/Syringe 0.64 ml @ 1.5 mls/min Q8H IV 05/25/17 11:00 06/24/17 10:59 05/27/17 03:20 1.5 MLS/MIN Cefepime HCl 2000 mg/Syringe 20 ml @ 5 mls/min Q24H IV 05/27/17 04:00 05/30/17 15:59 05/27/17 04:39 5 MLS/MIN Cefepime HCl (Consult) 1 ea UD PRN N/A 05/26/17 08:45 06/25/17 08:44 Insulin Human Regular 250 units/ Sodium Chloride 252.5 ml @ 0 mls/hr Q24H IV 05/26/17 21:30 06/25/17 21:29 05/26/17 21:43 2 MLS/HR Insulin Aspart (novoLOG ASPART) SLIDING SCALE PCHS SC 05/27/17 08:00 06/26/17 07:59 Amiodarone HCl (Cordarone Tab) 200 mg TIDM PO 05/27/17 11:30 06/26/17 11:29 Vital Signs: Date Time Temp Pulse Resp B/P (MAP) Pulse Ox O2 Delivery O2 Flow Rate FiO2 05/27/17 10:00 81 18 102/48 (66) 96 Nasal Cannula 2.0 05/27/17 08:00 97 Nasal Cannula 2.0 05/27/17 08:00 37.0 76 20 98/63 (75) 97 Nasal Cannula 2.0 05/27/17 07:29 105 18 97 Nasal Cannula 2.0 05/27/17 06:00 75 22 82/65 (71) 97 Nasal Cannula 2.0 05/27/17 04:00 36.4 71 14 104/67 (79) 98 Nasal Cannula 2.0 05/27/17 04:00 Nasal Cannula 2.0 05/27/17 02:00 78 18 108/79 (89) 96 Nasal Cannula 2.0 05/27/17 00:01 36.8 76 18 113/78 (90) 98 Nasal Cannula 2.0 05/26/17 23:59 Nasal Cannula 2.0 05/26/17 22:01 81 5 85/60 (68) 93 05/26/17 21:00 72 18 118/74 (89) 95 05/26/17 20:01 80 15 94/63 (73) 94 05/26/17 20:00 Room Air 05/26/17 20:00 75 16 94 Room Air 05/26/17 19:01 80 17 113/66 (82) 95 05/26/17 18:01 77 11 94/63 (73) 93 Room Air 05/26/17 18:00 71 17 93 05/26/17 17:06 70 20 104/72 (83) 94 05/26/17 17:00 75 18 96 Room Air 05/26/17 16:15 95 Room Air 05/26/17 16:01 36.6 67 22 86/58 (67) 94 05/26/17 16:00 67 12 95 Room Air 05/26/17 15:00 74 10 120/83 (95) 98 05/26/17 14:11 84 18 95 Room Air 05/26/17 14:01 67 19 94/67 (76) 92 05/26/17 14:00 80 22 95 Oxymask 5.0 05/26/17 13:34 74 15 98/67 (77) 99 05/26/17 13:30 70 19 91/57 (68) 98 05/26/17 13:28 67 23 84/69 (74) 98 05/26/17 13:00 73 17 98/75 (83) 100 05/26/17 12:00 36.5 69 19 95/69 (78) 100 Oxymask 5.0 05/26/17 11:49 74 20 93/67 (76) 100 05/26/17 11:46 65 18 91/58 (69) 100 Laboratory Results: Last 24 Hours Test 05/26/17 11:27 05/26/17 12:05 05/26/17 13:03 05/26/17 15:58 Bedside Glucose 108 mg/dl 102 mg/dl 109 mg/dl 151 mg/dl Test 05/26/17 17:52 05/26/17 20:52 05/26/17 23:04 05/27/17 00:14 Activated Partial Thromboplast Time 73.9 SECONDS Partial Thromboplastin Ratio 2.8 Bedside Glucose 242 mg/dl 268 mg/dl 289 mg/dl Test 05/27/17 00:31 05/27/17 01:05 05/27/17 02:07 05/27/17 02:35 Activated Partial Thromboplast Time 138.2 SECONDS 89.9 SECONDS Partial Thromboplastin Ratio 5.3 3.5 Bedside Glucose 276 mg/dl 302 mg/dl Test 05/27/17 03:06 05/27/17 04:07 05/27/17 05:07 05/27/17 05:37 Bedside Glucose 278 mg/dl 245 mg/dl 216 mg/dl White Blood Count 7.49 K/uL Red Blood Count 3.54 M/uL Hemoglobin 9.6 g/dL Hematocrit 27.6 % Mean Corpuscular Volume 78.0 fL Mean Corpuscular Hemoglobin 27.1 pg Mean Corpuscular Hemoglobin Concent 34.8 g/dl Platelet Count 95 K/uL Mean Platelet Volume 9.3 fL Neutrophils (%) (Auto) 89.2 % Lymphocytes (%) (Auto) 5.9 % Monocytes (%) (Auto) 4.8 % Eosinophils (%) (Auto) 0.0 % Basophils (%) (Auto) 0.0 % Neutrophils # (Auto) 6.68 K/uL Lymphocytes # (Auto) 0.44 K/uL Monocytes # (Auto) 0.36 K/uL Eosinophils # (Auto) 0.00 K/uL Basophils # (Auto) 0.00 K/uL RDW Standard Deviation 36.9 fL RDW Coefficient of Variation 12.9 % Immature Granulocyte % (Auto) 0.1 % Immature Granulocyte # (Auto) 0.01 K/uL Sodium Level 131 mmol/L Potassium Level 3.8 mmol/L Chloride Level 98 mmol/L Carbon Dioxide Level 20 mmol/L Anion Gap 13.0 mmol/L Blood Urea Nitrogen 105 mg/dl Creatinine 4.12 mg/dl Est Creatinine Clear Calc Drug Dose 22.1 ml/min Estimated GFR () 16.7 Estimated GFR (Non- 14.4 BUN/Creatinine Ratio 25.5 Random Glucose 214 mg/dl Estimated Average Glucose 226 mg/dl Hemoglobin A1c 9.5 % Calcium Level 7.8 mg/dl Phosphorus Level 6.5 mg/dl Procalcitonin 1.98 ng/ml Test 05/27/17 06:06 05/27/17 09:12 Bedside Glucose 213 mg/dl Activated Partial Thromboplast Time 90.3 SECONDS Partial Thromboplastin Ratio 3.5
--- NOTE | 2017-05-27 12:42 | Pharmacy Progress Note ---
Pharmacy Abx Dose Short Note Date of Service May 27, 2017. Assessment & Plan Pharmacy has been consulted for: * Glycemic control * Cefepime IV dosing Assessment/Plan Glycemic Control: * Patient had been on insulin infusion overnight yesterday due to deteriorating glycemic control, however the drip was placed on hold and then discontinued mid- day yesterday as BSGs remained in the low 100's off the drip. Of note, the patient's appetite was poor yesterday. * SQ Lantus and Novolog orders were instituted, however pt's glycemic control quickly deteriorated later in the day after eating. * BSG climbed to 242 at bedtime and as a result IV insulin infusion was resumed ; goal range 120-200 * BSGs continued to climb initially after starting the insulin drip, peaking at 302 then gradually falling to 213 this AM * Insulin infusing at ~4.1 units/hr this AM * He has consistently exhibited carb sensitivity while on high dose IV steroid therapy, to the extent he likely cannot be managed safely with a SQ regimen while on the current Solu-Medrol dosage. He has had several episodes of hypoglycemia when high doses of SQ insulin were given and steroid therapy discontinued soon afterwards. * Plan: * Continue the IV insulin infusion at this time as long as current IV Solu- Medrol dose continues. * Will add some basal insulin today to help with transition to SQ when steroid dose tapered. Recommend Lantus 20 units SQ BID initially while on the insulin drip. * Will give a set carb ratio of 1 unit per 4 grams CHO's consumed while on insulin infusion as drip calculator will not give a lesser CR than 1:5 yet the patient requires more than this. Cefepime * Renal fxn continues to decline, SCR 3.41-->3.98-->4.12; however U.O. still adequate * eCrCl 20-25cc/min; continue 2 gm IV Q 24 hrs as this is the maximum recommended dose for this degree of renal impairment Pharmacy will continue to follow and will adjust dose/frequency as necessary. Thank you.
[2017-05-27] MEDS ORDERED: INSULIN GLARGINE SOLOSTAR 100 UNITS/ML 3 ML PEN SC ONE (12:45)
[2017-05-27] MEDS: ROSUVASTATIN CALCIUM 20 MG TAB PO SCH (20:46)
[2017-05-27] MEDS: INSULIN REGULAR 250 UNITS in SODIUM CHLORIDE 0.9% 250ML 250 ML IV SCH (20:48)
[2017-05-27] MEDS: INSULIN GLARGINE SOLOSTAR 100 UNITS/ML 3 ML PEN SC SCH (20:58)
--- NOTE | 2017-05-27 22:03 | DIAGNOSTIC IMAGING REPORT ---
HEAD CT NONCONTRAST CT DOSE: 3145.04 mGy.cm HISTORY: Altered mental status. TECHNIQUE: Multiaxial CT images of the head were performed without the use of intravenous contrast. Automated exposure control was utilized for this study. A dose lowering technique was utilized adhering to the principles of ALARA. Comparison: Head CT 05/25/2017. Findings: Mild mucosal thickening within the paranasal sinuses. The mastoid air cells are clear. The calvarium and skull base are intact. There is no mass, hematoma, midline shift, acute infarct. White matter hypodensity is nonspecific but suggestive of microvascular ischemic change. The ventricles and sulci demonstrate mild age-related involutional changes. Impression: No significant change compared to the prior study. No acute intracranial abnormality. Electronically signed by: Tremaine Blackmon M.D. 05/27/2017 10:02 PM Dictated Date/Time: 05/27/2017 9:57 PM
[2017-05-27 22:33] LABS: HEMATOCRIT 27.7 % (42-52); HEMOGLOBIN 9.7 g/dL (14.0-18.0); IG# 0.04 K/uL (0.00-0.02); LYMPH % 2.4 %; LYMPH ABS # 0.26 K/uL (1.2-3.4); MEAN CELL VOLUME 78.5 fL (80-100); MEAN CORPUSCULAR HEMOGLOBIN 27.5 pg (25-34); MEAN PLATELET VOLUME 9.2 fL (7.4-10.4); MONO % 4.4 %; MONO ABS # 0.49 K/uL (0.11-0.59); NEUT % 92.8 %; NEUT ABS # 10.25 K/uL (1.4-6.5); PLATELET COUNT 118 K/uL (130-400); RED CELL DISTRIBUTION WIDTH CV 13.3 % (11.5-14.5); RED CELL DISTRIBUTION WIDTH SD 37.8 fL (36.4-46.3); WHITE BLOOD COUNT 11.04 K/uL (4.8-10.8)
[2017-05-27 23:00] LABS: ALBUMIN 2.3 gm/dl (3.4-5.0); CALCIUM 8.2 mg/dl (8.5-10.1); CREATININE 4.39 mg/dl (0.60-1.40); POTASSIUM 3.6 mmol/L (3.5-5.1); TOTAL PROTEIN 5.7 gm/dl (6.4-8.2)
[2017-05-27 23:03] LABS: CKMB 5.8 ng/ml (0.5-3.6); PHOSPHORUS 6.1 mg/dl (2.5-4.9)
[2017-05-28] VITALS (50 sets, daily range): BP systolic 11–118; BP diastolic 53–88; PULSE 66–133; TEMP 36.4–37.3; O2SAT 89–100
[2017-05-28 00:05] LABS: PTT PATIENT 83.2 SECONDS (21.0-31.0)
[2017-05-28] MEDS: LEVALBUTEROL 1.25MG/0.5ML NEB INH SCH ×4 (02:12→20:01)
[2017-05-28] MEDS: IPRATROPIUM BROMIDE NEB SOLN 0.02% 2.5 ML VIAL INH SCH ×4 (02:12→20:01)
[2017-05-28] MEDS: METHYLPREDNISOLONE IV 40 MG in SYRINGE 0 ML IV SCH ×2 (03:01→18:05)
[2017-05-28] MEDS: CEFEPIME IV 2,000 MG in SYRINGE 7.5 ML IV SCH (04:12)
[2017-05-28 06:48] LABS: HEMATOCRIT 26.6 % (42-52); HEMOGLOBIN 9.3 g/dL (14.0-18.0); IG# 0.03 K/uL (0.00-0.02); LYMPH % 3.3 %; LYMPH ABS # 0.37 K/uL (1.2-3.4); MEAN CELL VOLUME 78.2 fL (80-100); MEAN CORPUSCULAR HEMOGLOBIN 27.4 pg (25-34); MONO % 3.6 %; NEUT % 92.8 %; NEUT ABS # 10.38 K/uL (1.4-6.5); PLATELET COUNT 109 K/uL (130-400); RED CELL DISTRIBUTION WIDTH CV 13.2 % (11.5-14.5); WHITE BLOOD COUNT 11.18 K/uL (4.8-10.8)
[2017-05-28 07:06] LABS: PTT PATIENT 58.8 SECONDS (21.0-31.0)
[2017-05-28 07:43] LABS: ALBUMIN 2.4 gm/dl (3.4-5.0); CALCIUM 8.2 mg/dl (8.5-10.1); CREATININE 4.56 mg/dl (0.60-1.40); PHOSPHORUS 6.4 mg/dl (2.5-4.9); POTASSIUM 3.8 mmol/L (3.5-5.1); TOTAL PROTEIN 5.8 gm/dl (6.4-8.2)
[2017-05-28] MEDS: INSULIN ASPART 100 UNITS/ML 3 ML PEN SC SCH ×4 (08:00→20:55)
[2017-05-28] MEDS: ISOSORBIDE DINITRATE 20 MG TAB PO SCH ×3 (08:20→18:06)
[2017-05-28] MEDS: ASPIRIN 81 MG ECTAB PO SCH (08:22)
[2017-05-28] MEDS: CARVEDILOL 12.5 MG TAB PO SCH ×2 (08:22→21:13)
[2017-05-28] MEDS: GUAIFENESIN 600 MG TABCR PO SCH ×2 (08:22→21:14)
[2017-05-28] MEDS: DULOXETINE HCL 60 MG CAP PO SCH (08:22)
[2017-05-28] MEDS: DOXYCYCLINE HYCLATE 100 MG CAP PO SCH ×2 (08:23→21:14)
[2017-05-28] MEDS: PANTOprazole SOD 40 MG TAB PO SCH (08:23)
[2017-05-28] MEDS: AMLODIPINE BESYLATE 5 MG TAB PO SCH (08:23)
[2017-05-28] MEDS: INSULIN GLARGINE SOLOSTAR 100 UNITS/ML 3 ML PEN SC SCH ×2 (08:25→21:18)
[2017-05-28] MEDS: AMIODARONE 200 MG TAB PO SCH ×3 (09:24→18:04)
--- NOTE | 2017-05-28 09:42 | Cardiology Follow-Up ---
Subjective General Date of Service: May 28, 2017. Chief Complaint: follow up shortness of breath Pt evaluation today including: conversation w/ patient, physical exam History of Present Illness The patient is a 62 year old male seen in follow up. Patient confused this am with upper extremity tremor noted. 2.4 L of urine output yesterday, however creatinine still trending up. Telemetry reveals rate controlled AF, LBBB. Allergies Coded Allergies: No Known Allergies (Verified , 05/23/17) Social History Smoking Status: Never Smoker Hx Tobacco Use In Past Year?: No Hx Alcohol Use - Type And Amou: No Hx Substance Use - Type And Am: No Problem List Medical Problems: (1) CHF (congestive heart failure) Status: Acute (2) CHF (congestive heart failure) Status: Acute (3) Diffuse abdominal pain Status: Acute (4) Elevated troponin Status: Acute (5) Precordial chest pain Status: Acute (6) Renal cyst Status: Acute (7) Shortness of breath Status: Acute (8) Shortness of breath Status: Acute Physical Exam Vital Signs Last Vital Signs Documentation Date Time Temp Pulse Resp B/P (MAP) Pulse Ox O2 Delivery O2 Flow Rate FiO2 05/28/17 08:41 104 20 96 Room Air 05/28/17 05:00 104/74 (84) 05/28/17 04:00 36.7 2.0 05/26/17 08:00 40 Physical Exam Constitutional: Level of Distress: acutely ill ENMT: TMs normal Neck: supple, trachea midline Lungs: Auscultation: pertinent finding (Decreased BS at bases bilaterally-improved) Cardiovascular: Heart Auscultation: RRR, pertinent finding (1/6 SM) Abdomen: Inspection & Palpation: soft, non-distended Extremities: no edema Neurologic: Gait & Station: pertinent finding (confuse, tremor) Assessment and Plan Assessment and Plan Impression: 62-year-old male 1. Acute influenza A, resultant cough generalized malaise, respiratory insufficiency 2. Superimposed acute systolic heart failure decompensation, history of left bundle branch block, nonischemic cardiomyopathy, LVEF 30-40% March 2017 3. Acute kidney injury (nonoliguric) on stage III chronic kidney disease, 4. atrial fibrillation , new onset 5. encephalopathy / delirium, perhaps due to uremia. Also could be from Tamiflu Plan: Heparin gtt, on hold for tentative placement of dialysis catheter. Course of Tamilfu completed. Agree with plan for HD. Laboratory Results Last 24 Hours Test 05/27/17 10:21 05/27/17 11:43 05/27/17 13:11 05/27/17 14:33 Bedside Glucose 180 mg/dl 190 mg/dl 203 mg/dl 157 mg/dl Test 05/27/17 15:54 05/27/17 17:13 05/27/17 18:18 05/27/17 19:36 Bedside Glucose 144 mg/dl 149 mg/dl 169 mg/dl 185 mg/dl Test 05/27/17 20:35 05/27/17 22:09 05/27/17 22:24 05/27/17 23:18 Bedside Glucose 141 mg/dl 115 mg/dl 93 mg/dl White Blood Count 11.04 K/uL Red Blood Count 3.53 M/uL Hemoglobin 9.7 g/dL Hematocrit 27.7 % Mean Corpuscular Volume 78.5 fL Mean Corpuscular Hemoglobin 27.5 pg Mean Corpuscular Hemoglobin Concent 35.0 g/dl Platelet Count 118 K/uL Mean Platelet Volume 9.2 fL Neutrophils (%) (Auto) 92.8 % Lymphocytes (%) (Auto) 2.4 % Monocytes (%) (Auto) 4.4 % Eosinophils (%) (Auto) 0.0 % Basophils (%) (Auto) 0.0 % Neutrophils # (Auto) 10.25 K/uL Lymphocytes # (Auto) 0.26 K/uL Monocytes # (Auto) 0.49 K/uL Eosinophils # (Auto) 0.00 K/uL Basophils # (Auto) 0.00 K/uL RDW Standard Deviation 37.8 fL RDW Coefficient of Variation 13.3 % Immature Granulocyte % (Auto) 0.4 % Immature Granulocyte # (Auto) 0.04 K/uL Prothrombin Time 10.7 SECONDS Prothromb Time International Ratio 1.0 Activated Partial Thromboplast Time 83.2 SECONDS Partial Thromboplastin Ratio 3.2 Sodium Level 135 mmol/L Potassium Level 3.6 mmol/L Chloride Level 101 mmol/L Carbon Dioxide Level 20 mmol/L Anion Gap 14.0 mmol/L Blood Urea Nitrogen 105 mg/dl Creatinine 4.39 mg/dl Est Creatinine Clear Calc Drug Dose 20.9 ml/min Estimated GFR () 15.5 Estimated GFR (Non- 13.3 BUN/Creatinine Ratio 23.8 Random Glucose 102 mg/dl Lactic Acid Level 1.6 mmol/L Calcium Level 8.2 mg/dl Phosphorus Level 6.1 mg/dl Magnesium Level 2.8 mg/dl Total Bilirubin 0.5 mg/dl Direct Bilirubin 0.1 mg/dl Aspartate Amino Transf (AST/SGOT) 24 U/L Alanine Aminotransferase (ALT/SGPT) 26 U/L Alkaline Phosphatase 53 U/L Ammonia < 10.0 umol/L Total Creatine Kinase 158 U/L Creatine Kinase MB 5.8 ng/ml Creatine Kinase MB Ratio 3.7 Troponin I 0.392 ng/ml Total Protein 5.7 gm/dl Albumin 2.3 gm/dl Procalcitonin 1.51 ng/ml Test 05/27/17 23:49 05/28/17 00:54 05/28/17 01:49 05/28/17 03:02 Bedside Glucose 138 mg/dl 127 mg/dl 132 mg/dl 118 mg/dl Test 05/28/17 04:12 05/28/17 05:02 05/28/17 06:01 05/28/17 06:38 Bedside Glucose 119 mg/dl 137 mg/dl 141 mg/dl White Blood Count 11.18 K/uL Red Blood Count 3.40 M/uL Hemoglobin 9.3 g/dL Hematocrit 26.6 % Mean Corpuscular Volume 78.2 fL Mean Corpuscular Hemoglobin 27.4 pg Mean Corpuscular Hemoglobin Concent 35.0 g/dl Platelet Count 109 K/uL Mean Platelet Volume 9.0 fL Neutrophils (%) (Auto) 92.8 % Lymphocytes (%) (Auto) 3.3 % Monocytes (%) (Auto) 3.6 % Eosinophils (%) (Auto) 0.0 % Basophils (%) (Auto) 0.0 % Neutrophils # (Auto) 10.38 K/uL Lymphocytes # (Auto) 0.37 K/uL Monocytes # (Auto) 0.40 K/uL Eosinophils # (Auto) 0.00 K/uL Basophils # (Auto) 0.00 K/uL RDW Standard Deviation 38.0 fL RDW Coefficient of Variation 13.2 % Immature Granulocyte % (Auto) 0.3 % Immature Granulocyte # (Auto) 0.03 K/uL Activated Partial Thromboplast Time 58.8 SECONDS Partial Thromboplastin Ratio 2.3 Sodium Level 137 mmol/L Potassium Level 3.8 mmol/L Chloride Level 102 mmol/L Carbon Dioxide Level 23 mmol/L Anion Gap 12.0 mmol/L Blood Urea Nitrogen 114 mg/dl Creatinine 4.56 mg/dl Est Creatinine Clear Calc Drug Dose 20.0 ml/min Estimated GFR () 14.8 Estimated GFR (Non- 12.7 BUN/Creatinine Ratio 25.2 Random Glucose 114 mg/dl Calcium Level 8.2 mg/dl Phosphorus Level 6.4 mg/dl Magnesium Level 2.8 mg/dl Total Bilirubin 0.5 mg/dl Direct Bilirubin 0.1 mg/dl Aspartate Amino Transf (AST/SGOT) 24 U/L Alanine Aminotransferase (ALT/SGPT) 27 U/L Alkaline Phosphatase 54 U/L Total Protein 5.8 gm/dl Albumin 2.4 gm/dl
--- NOTE | 2017-05-28 10:36 | Pharmacy Progress Note ---
Pharmacy Abx Dose Short Note Date of Service May 28, 2017. Assessment & Plan Pharmacy has been consulted for: * Glycemic control * Cefepime IV dosing Assessment/Plan Glycemic Control: * Patient remains on insulin drip this AM * BSGs within goal range * Insulin infusion rates have steadily decreased with the addition of Lantus 20 units SQ BID yesterday; Insulin rate 4.1 units/hr yesterday AM vs 1.2 units/hr this AM. Insulin infusion rates may also be lessening due to declining renal fxn and prolonged insulin half-life. * Of note, only one dose of Lantus 20 units SQ given yesterday. * He has consistently exhibited carb sensitivity while on high dose IV steroid therapy. However steroid dose is being tapered from Solu-medrol 40mg IV Q 8 hours to Q 12 hours today. This may result in increased insulin sensitivity as well. * Plan: * Continue the IV insulin infusion at this time. However if the insulin adjustment calculator states hold the infusion. Would recommend leaving the infusion off. * Continue Lantus 20 units SQ BID while on the insulin drip. * Continue carb ratio of 1 unit per 4 grams CHO's consumed while on insulin infusion as drip * If IV insulin infusion titrated off today: -Continue Lantus 20 units SQ BID -Novolog SQ Q 4 hrs; Goal range 120 - 160mg/dL; CF 12mg/dL/unit; CR 1 unit per 4gm CHO consumed Cefepime * Day # 3 Cefepime (Day 6 of Doxy; completed 5 days of Tamilu yesterday) * Renal fxn continues to decline, SCR 3.41-->3.98-->4.12-->4.56; however non- oligouric * eCrCl 20-25cc/min; continue 2 gm IV Q 24 hrs as this is the maximum recommended dose for this degree of renal impairment Pharmacy will continue to follow and will adjust dose/frequency as necessary. Thank you.
[2017-05-28] MEDS: NORMOSOL R 1,000 ML IV SCH (13:08)
--- NOTE | 2017-05-28 14:07 | Procedure Note ---
Procedure Note Procedure Date May 28, 2017. Procedure Description Procedure Name: Right femoral hemodialysis catheter Central Line Procedure time out: side/site verified, patient ID confirmed, sterile procedure used Consent obtained: written Time of procedure: 13:30 Performed by: attending Indications: other (Hemodialysis) Prep: chlorhexadine prep, sterile drape, sterile procedures used Anesthesia: local injection, lidocaine 1% without epi Volume anesthetic (ml's): 7 Central line lumen: triple (Hemodialysis catheter) Central line location: femoral (R) Additional details: percutaneous placement, ultrasound guidance, Selinger technique used, line sutured, good blood return Complications: none Patient tolerated procedure: well Post-procedure vital signs: reviewed and stable Comments: May proceed with HD
--- NOTE | 2017-05-28 14:09 | Critical Care Progress Note ---
Critical Care Progress Note Date of Service May 28, 2017. Attending Dr. Eric Subjective More confused today, mildly agitated, trying to get out of bed Objective General Appearance: comfortable. Head: small excoriation over the lateral aspect of left eyebrow. Eyes: PERRLA Neck: trachea midline, no stridor, supple Respiratory: No wheezing Cardiovascular: irregular rate Abdomen: non tender, no rebound. Back: normal inspection. Extremities: no edema, dry skin. Left hip normal in appearance, no ecchymosis, no hematoma Neuro: alert, oriented x 3, occasional twitching Assessment & Plan 62 year old male with h/o CHF, asthma, diabetic, presents with shortness of breath, positive for influenza A. At this point, I believe that the respiratory symptoms are related to intrinsic lung disease secondary to asthma/flu rather than fluid overload Has PAM on CKD. Plan: Continue gentle hydration. Continue oseltamivir Also on antibiotic coverage as there is some focality on CXR. On cefepime and doxycycline Continue bronchodilators Continue IV steroids at this point. Bronchospasm improved significantly. Convert to PO tomorrow Now tolerating nasal cannula Monitor renal indices, urine output. Start HD today given encephalopathy Continue on IV fluids. PO amiodarone Continue heparin drip today (held for 4 hours for the HD catheter insertion, now resumed) Coreg 12.5 mg bid On an insulin drip now. Critical care time spent with the patient, reviewing chart, discussing with consultants, greater than 35 minutes Requires ICU monitoring as he is still in respiratory failure, PAM, may require intubation, starting hemodialysis, requires very close monitoring Consults & Procedures Consultants: Cardiology: Dr Sethi Renal: Dr Manley Procedures: 05/28/17 - right femoral HD catheter Data Medications: Current Inpatient Medications Medications (Trade) Dose Ordered Sig/Larry Route Start Time Stop Time Status Last Admin Dose Admin Doxycycline Hyclate (Vibramycin Cap) 100 mg BID PO 05/23/17 21:00 05/30/17 20:59 05/28/17 08:23 100 MG Acetaminophen (Tylenol Tab) 650 mg Q4H PRN PO 05/23/17 04:30 06/22/17 04:29 05/25/17 09:10 650 MG Nitroglycerin (Nitrostat Tab) 0.4 mg UD PRN SL 05/23/17 04:30 06/22/17 04:29 Hydromorphone HCl (Dilaudid Inj) 0.5 mg Q3H PRN IV 05/23/17 04:30 06/06/17 04:29 Tramadol HCl (Ultram Tab) not relieved ... Q6H PRN PO 05/23/17 04:30 06/22/17 04:29 Aspirin (Ecotrin Tab) 81 mg QAM PO 05/23/17 09:00 06/22/17 08:59 05/28/17 08:22 81 MG Carvedilol (Coreg Tab) 12.5 mg BID PO 05/23/17 09:00 06/22/17 08:59 05/28/17 08:22 12.5 MG Duloxetine HCl (Cymbalta Cap) 60 mg DAILY PO 05/23/17 09:00 06/22/17 08:59 05/28/17 08:22 60 MG Isosorbide Dinitrate (Isordil Tab) 20 mg TID@0700,1200,1700 PO 05/23/17 07:00 06/22/17 06:59 05/28/17 12:16 20 MG Pantoprazole Sodium (Protonix Tab) 40 mg QAM PO 05/23/17 09:00 06/22/17 08:59 05/28/17 08:23 40 MG Rosuvastatin Calcium (Crestor Tab) 40 mg HS PO 05/23/17 21:00 06/22/17 20:59 05/27/17 20:46 40 MG Prochlorperazine Edisylate 5 mg/ Syringe 5 ml @ 5 mls/min Q6H PRN IV 05/23/17 04:30 06/22/17 04:29 05/25/17 09:28 5 MLS/MIN Guaifenesin (Mucinex Contr Rel Tab) 600 mg BID PO 05/23/17 21:00 06/22/17 20:59 05/28/17 08:22 600 MG Ipratropium Kennard (Atrovent 0.02% 0.5MG/2.5ML Neb) 0.5 mg Q6R INH 05/23/17 09:00 06/22/17 08:59 05/28/17 08:41 0.5 MG Levalbuterol (Xopenex 1.25MG/ 0.5ML Neb) 1.25 mg Q6R INH 05/23/17 09:00 06/22/17 08:59 05/28/17 08:41 1.25 MG Ipratropium Kennard (Atrovent 0.02% 0.5MG/2.5ML Neb) 0.5 mg Q4H PRN INH 05/23/17 05:15 06/22/17 05:14 05/25/17 00:20 0.5 MG Levalbuterol (Xopenex 1.25MG/ 0.5ML Neb) 1.25 mg Q4H PRN INH 05/23/17 05:15 06/22/17 05:14 05/25/17 00:20 1.25 MG Furosemide 40 mg/ Syringe 4 ml @ 4 mls/min DAILY IV 05/23/17 09:00 06/22/17 08:59 Future Hold 05/23/17 10:34 4 MLS/MIN Miscellaneous Information (Consult Glycemic Management Pharmacy) 1 ea UD N/A 05/23/17 09:48 06/22/17 09:47 Glucose (Glucose 40% Gel) 15-30 GRAMS 15 GRAMS... UD PRN PO 05/24/17 08:30 06/23/17 08:29 Glucose (Glucose Chew Tab) 4-8 Tablets 4 Tabl... UD PRN PO 05/24/17 08:30 06/23/17 08:29 Dextrose (Dextrose 50% 50ML Syringe) 25-50ML OF 50% DW IV FOR... UD PRN IV 05/24/17 08:30 06/23/17 08:29 05/27/17 23:29 25 ML Glucagon (Glucagon Inj) 1 mg UD PRN SQ 05/24/17 08:30 06/23/17 08:29 Amlodipine Besylate (Norvasc Tab) 5 mg QAM PO 05/25/17 09:00 06/24/17 08:59 05/28/17 08:23 5 MG Heparin Sodium/ Dextrose 500 ml @ 19 mls/hr Q24H PRN IV 05/24/17 13:15 06/23/17 13:14 Future Hold 05/27/17 07:56 25 MLS/HR Parenteral Electrolyte Solution 1,000 ml @ 50 mls/hr Q20H IV 05/25/17 10:30 06/24/17 10:29 05/28/17 13:08 50 MLS/HR Cefepime HCl 2000 mg/Syringe 20 ml @ 5 mls/min Q24H IV 05/27/17 04:00 05/30/17 15:59 05/28/17 04:12 5 MLS/MIN Cefepime HCl (Consult) 1 ea UD PRN N/A 05/26/17 08:45 06/25/17 08:44 Insulin Human Regular 250 units/ Sodium Chloride 252.5 ml @ 0 mls/hr Q24H IV 05/26/17 21:30 06/25/17 21:29 05/27/17 20:48 2.6 MLS/HR Insulin Aspart (novoLOG ASPART) SLIDING SCALE PCHS SC 05/27/17 08:00 06/26/17 07:59 05/27/17 11:55 6 UNITS Amiodarone HCl (Cordarone Tab) 200 mg TIDM PO 05/27/17 11:30 06/26/17 11:29 05/28/17 12:16 200 MG Insulin Glargine (Lantus Solostar Pen) 20 units BID SC 05/27/17 21:00 06/26/17 20:59 05/28/17 08:25 20 UNITS Methylprednisolone Sodium Succinate 40 mg/Syringe 0.64 ml @ 1.5 mls/min Q12 IV 05/28/17 18:00 06/24/17 17:59 Gabapentin (Neurontin Cap) 300 mg HS PO 05/28/17 21:00 06/27/17 20:59 Vital Signs: Date Time Temp Pulse Resp B/P (MAP) Pulse Ox O2 Delivery O2 Flow Rate FiO2 05/28/17 14:00 37.0 88 20 102/65 (77) 98 Nasal Cannula 2.0 05/28/17 12:30 67 15 98 05/28/17 12:15 88 20 100 05/28/17 12:01 83 17 99 05/28/17 12:00 36.7 76 20 103/77 (86) 98 Nasal Cannula 2.0 05/28/17 12:00 Nasal Cannula 2.0 05/28/17 12:00 81 19 98 05/28/17 11:45 89 17 99 05/28/17 11:30 78 18 99 05/28/17 11:15 86 18 100 05/28/17 11:00 83 19 86/53 (64) 05/28/17 10:45 85 20 98 05/28/17 10:15 82 21 95 05/28/17 10:01 69 18 108/63 (78) 97 05/28/17 10:00 79 18 97 05/28/17 09:45 67 21 97 05/28/17 09:30 84 20 93 05/28/17 09:15 83 14 98 05/28/17 09:01 87 14 82/63 (69) 89 05/28/17 09:00 82 23 05/28/17 08:45 82 16 100 05/28/17 08:41 104 20 96 Room Air 05/28/17 08:30 133 19 98 05/28/17 08:15 82 18 100 05/28/17 08:01 88 13 109/78 (88) 98 05/28/17 08:00 Nasal Cannula 05/28/17 08:00 84 18 97 05/28/17 08:00 Nasal Cannula 2.0 05/28/17 08:00 36.6 78 20 94 Nasal Cannula 2.0 05/28/17 07:45 100 16 96 05/28/17 07:30 98 15 99 05/28/17 07:15 86 27 97 05/28/17 07:01 71 15 111/69 (83) 97 05/28/17 07:00 70 18 95 05/28/17 05:00 104/74 (84) 05/28/17 04:00 36.7 79 15 95 Nasal Cannula 2.0 05/28/17 04:00 Nasal Cannula 2.0 05/28/17 02:00 66 27 96/57 (70) 92 Nasal Cannula 2.0 05/28/17 00:01 36.7 77 21 97/64 (75) 99 Nasal Cannula 2.0 05/27/17 23:59 Nasal Cannula 2.0 05/27/17 22:01 101 16 84/58 (67) 94 05/27/17 22:00 103 21 97 05/27/17 21:52 83 22 111/75 (87) 94 05/27/17 21:01 85 21 87/67 (74) 94 05/27/17 21:00 94 Room Air 05/27/17 21:00 143 20 94 05/27/17 20:38 76 20 96 Room Air 05/27/17 20:01 36.6 75 17 105/54 (71) 95 Room Air 05/27/17 20:00 78 25 05/27/17 19:02 80 17 94/70 (78) 94 Room Air 05/27/17 19:00 94 24 93 05/27/17 18:00 89 17 97/66 (76) 98 Room Air 05/27/17 17:01 80 20 87/50 (62) 99 05/27/17 17:00 76 16 97 05/27/17 16:45 36.7 82 17 96/65 (75) 98 Nasal Cannula 2.0 05/27/17 16:00 78 22 98 05/27/17 16:00 98 Nasal Cannula 2.0 05/27/17 15:00 86 23 95 05/27/17 14:25 75 20 95 Room Air Laboratory Results: Last 24 Hours Test 05/27/17 14:33 05/27/17 15:54 05/27/17 17:13 05/27/17 18:18 Bedside Glucose 157 mg/dl 144 mg/dl 149 mg/dl 169 mg/dl Test 05/27/17 19:36 05/27/17 20:35 05/27/17 22:09 05/27/17 22:24 Bedside Glucose 185 mg/dl 141 mg/dl 115 mg/dl White Blood Count 11.04 K/uL Red Blood Count 3.53 M/uL Hemoglobin 9.7 g/dL Hematocrit 27.7 % Mean Corpuscular Volume 78.5 fL Mean Corpuscular Hemoglobin 27.5 pg Mean Corpuscular Hemoglobin Concent 35.0 g/dl Platelet Count 118 K/uL Mean Platelet Volume 9.2 fL Neutrophils (%) (Auto) 92.8 % Lymphocytes (%) (Auto) 2.4 % Monocytes (%) (Auto) 4.4 % Eosinophils (%) (Auto) 0.0 % Basophils (%) (Auto) 0.0 % Neutrophils # (Auto) 10.25 K/uL Lymphocytes # (Auto) 0.26 K/uL Monocytes # (Auto) 0.49 K/uL Eosinophils # (Auto) 0.00 K/uL Basophils # (Auto) 0.00 K/uL RDW Standard Deviation 37.8 fL RDW Coefficient of Variation 13.3 % Immature Granulocyte % (Auto) 0.4 % Immature Granulocyte # (Auto) 0.04 K/uL Prothrombin Time 10.7 SECONDS Prothromb Time International Ratio 1.0 Activated Partial Thromboplast Time 83.2 SECONDS Partial Thromboplastin Ratio 3.2 Sodium Level 135 mmol/L Potassium Level 3.6 mmol/L Chloride Level 101 mmol/L Carbon Dioxide Level 20 mmol/L Anion Gap 14.0 mmol/L Blood Urea Nitrogen 105 mg/dl Creatinine 4.39 mg/dl Est Creatinine Clear Calc Drug Dose 20.9 ml/min Estimated GFR () 15.5 Estimated GFR (Non- 13.3 BUN/Creatinine Ratio 23.8 Random Glucose 102 mg/dl Lactic Acid Level 1.6 mmol/L Calcium Level 8.2 mg/dl Phosphorus Level 6.1 mg/dl Magnesium Level 2.8 mg/dl Total Bilirubin 0.5 mg/dl Direct Bilirubin 0.1 mg/dl Aspartate Amino Transf (AST/SGOT) 24 U/L Alanine Aminotransferase (ALT/SGPT) 26 U/L Alkaline Phosphatase 53 U/L Ammonia < 10.0 umol/L Total Creatine Kinase 158 U/L Creatine Kinase MB 5.8 ng/ml Creatine Kinase MB Ratio 3.7 Troponin I 0.392 ng/ml Total Protein 5.7 gm/dl Albumin 2.3 gm/dl Procalcitonin 1.51 ng/ml Test 05/27/17 23:18 05/27/17 23:49 05/28/17 00:54 05/28/17 01:49 Bedside Glucose 93 mg/dl 138 mg/dl 127 mg/dl 132 mg/dl Test 05/28/17 03:02 05/28/17 04:12 05/28/17 05:02 05/28/17 06:01 Bedside Glucose 118 mg/dl 119 mg/dl 137 mg/dl 141 mg/dl Test 05/28/17 06:38 White Blood Count 11.18 K/uL Red Blood Count 3.40 M/uL Hemoglobin 9.3 g/dL Hematocrit 26.6 % Mean Corpuscular Volume 78.2 fL Mean Corpuscular Hemoglobin 27.4 pg Mean Corpuscular Hemoglobin Concent 35.0 g/dl Platelet Count 109 K/uL Mean Platelet Volume 9.0 fL Neutrophils (%) (Auto) 92.8 % Lymphocytes (%) (Auto) 3.3 % Monocytes (%) (Auto) 3.6 % Eosinophils (%) (Auto) 0.0 % Basophils (%) (Auto) 0.0 % Neutrophils # (Auto) 10.38 K/uL Lymphocytes # (Auto) 0.37 K/uL Monocytes # (Auto) 0.40 K/uL Eosinophils # (Auto) 0.00 K/uL Basophils # (Auto) 0.00 K/uL RDW Standard Deviation 38.0 fL RDW Coefficient of Variation 13.2 % Immature Granulocyte % (Auto) 0.3 % Immature Granulocyte # (Auto) 0.03 K/uL Activated Partial Thromboplast Time 58.8 SECONDS Partial Thromboplastin Ratio 2.3 Sodium Level 137 mmol/L Potassium Level 3.8 mmol/L Chloride Level 102 mmol/L Carbon Dioxide Level 23 mmol/L Anion Gap 12.0 mmol/L Blood Urea Nitrogen 114 mg/dl Creatinine 4.56 mg/dl Est Creatinine Clear Calc Drug Dose 20.0 ml/min Estimated GFR () 14.8 Estimated GFR (Non- 12.7 BUN/Creatinine Ratio 25.2 Random Glucose 114 mg/dl Calcium Level 8.2 mg/dl Phosphorus Level 6.4 mg/dl Magnesium Level 2.8 mg/dl Total Bilirubin 0.5 mg/dl Direct Bilirubin 0.1 mg/dl Aspartate Amino Transf (AST/SGOT) 24 U/L Alanine Aminotransferase (ALT/SGPT) 27 U/L Alkaline Phosphatase 54 U/L Total Protein 5.8 gm/dl Albumin 2.4 gm/dl
--- NOTE | 2017-05-28 14:27 | Nephrology Progress Note ---
Nephrology Progress Note Date of Service: May 28, 2017. Subjective 62 yo male with flu/afib rate controlled with atn with worsening kidney function. pts confusion has been worsening and has worsening tremors as well. in room with him. explained to her the risks of dialysis and pt's is agreeable. Objective Date Time Temp Pulse Resp B/P (MAP) Pulse Ox O2 Delivery O2 Flow Rate FiO2 05/28/17 14:00 37.0 88 20 102/65 (77) 98 Nasal Cannula 2.0 05/28/17 12:30 67 15 98 05/28/17 12:15 88 20 100 05/28/17 12:01 83 17 99 05/28/17 12:00 36.7 76 20 103/77 (86) 98 Nasal Cannula 2.0 05/28/17 12:00 Nasal Cannula 2.0 05/28/17 12:00 81 19 98 05/28/17 11:45 89 17 99 05/28/17 11:30 78 18 99 05/28/17 11:15 86 18 100 05/28/17 11:00 83 19 86/53 (64) 05/28/17 10:45 85 20 98 05/28/17 10:15 82 21 95 05/28/17 10:01 69 18 108/63 (78) 97 05/28/17 10:00 79 18 97 05/28/17 09:45 67 21 97 05/28/17 09:30 84 20 93 05/28/17 09:15 83 14 98 05/28/17 09:01 87 14 82/63 (69) 89 05/28/17 09:00 82 23 05/28/17 08:45 82 16 100 05/28/17 08:41 104 20 96 Room Air 05/28/17 08:30 133 19 98 05/28/17 08:15 82 18 100 05/28/17 08:01 88 13 109/78 (88) 98 05/28/17 08:00 Nasal Cannula 05/28/17 08:00 84 18 97 05/28/17 08:00 Nasal Cannula 2.0 05/28/17 08:00 36.6 78 20 94 Nasal Cannula 2.0 05/28/17 07:45 100 16 96 05/28/17 07:30 98 15 99 05/28/17 07:15 86 27 97 05/28/17 07:01 71 15 111/69 (83) 97 05/28/17 07:00 70 18 95 05/28/17 05:00 104/74 (84) 05/28/17 04:00 36.7 79 15 95 Nasal Cannula 2.0 05/28/17 04:00 Nasal Cannula 2.0 05/28/17 02:00 66 27 96/57 (70) 92 Nasal Cannula 2.0 05/28/17 00:01 36.7 77 21 97/64 (75) 99 Nasal Cannula 2.0 05/27/17 23:59 Nasal Cannula 2.0 05/27/17 22:01 101 16 84/58 (67) 94 05/27/17 22:00 103 21 97 05/27/17 21:52 83 22 111/75 (87) 94 05/27/17 21:01 85 21 87/67 (74) 94 05/27/17 21:00 94 Room Air 05/27/17 21:00 143 20 94 05/27/17 20:38 76 20 96 Room Air 05/27/17 20:01 36.6 75 17 105/54 (71) 95 Room Air 05/27/17 20:00 78 25 05/27/17 19:02 80 17 94/70 (78) 94 Room Air 05/27/17 19:00 94 24 93 05/27/17 18:00 89 17 97/66 (76) 98 Room Air 05/27/17 17:01 80 20 87/50 (62) 99 05/27/17 17:00 76 16 97 05/27/17 16:45 36.7 82 17 96/65 (75) 98 Nasal Cannula 2.0 05/27/17 16:00 78 22 98 05/27/17 16:00 98 Nasal Cannula 2.0 05/27/17 15:00 86 23 95 05/27/17 14:25 75 20 95 Room Air Physical Exam: General-confused Eyes-no scleral icterus ENT-mmm Neck-supple Lungs-cta Heart-irregularly irregular Abdomen-bs+ s/nt/nd Extremities-no c/c/e Neuro-tremors Current Inpatient Medications Medications (Trade) Dose Ordered Sig/Larry Route Start Time Stop Time Status Last Admin Dose Admin Doxycycline Hyclate (Vibramycin Cap) 100 mg BID PO 05/23/17 21:00 2/10/18 20:59 05/28/17 08:23 100 MG Acetaminophen (Tylenol Tab) 650 mg Q4H PRN PO 05/23/17 04:30 06/22/17 04:29 05/25/17 09:10 650 MG Nitroglycerin (Nitrostat Tab) 0.4 mg UD PRN SL 05/23/17 04:30 06/22/17 04:29 Hydromorphone HCl (Dilaudid Inj) 0.5 mg Q3H PRN IV 05/23/17 04:30 06/06/17 04:29 Tramadol HCl (Ultram Tab) not relieved ... Q6H PRN PO 05/23/17 04:30 06/22/17 04:29 Aspirin (Ecotrin Tab) 81 mg QAM PO 05/23/17 09:00 06/22/17 08:59 05/28/17 08:22 81 MG Carvedilol (Coreg Tab) 12.5 mg BID PO 05/23/17 09:00 06/22/17 08:59 05/28/17 08:22 12.5 MG Duloxetine HCl (Cymbalta Cap) 60 mg DAILY PO 05/23/17 09:00 06/22/17 08:59 05/28/17 08:22 60 MG Isosorbide Dinitrate (Isordil Tab) 20 mg TID@0700,1200,1700 PO 05/23/17 07:00 06/22/17 06:59 05/28/17 12:16 20 MG Pantoprazole Sodium (Protonix Tab) 40 mg QAM PO 05/23/17 09:00 06/22/17 08:59 05/28/17 08:23 40 MG Rosuvastatin Calcium (Crestor Tab) 40 mg HS PO 05/23/17 21:00 06/22/17 20:59 05/27/17 20:46 40 MG Prochlorperazine Edisylate 5 mg/ Syringe 5 ml @ 5 mls/min Q6H PRN IV 05/23/17 04:30 06/22/17 04:29 05/25/17 09:28 5 MLS/MIN Guaifenesin (Mucinex Contr Rel Tab) 600 mg BID PO 05/23/17 21:00 06/22/17 20:59 2/8/18 08:22 600 MG Ipratropium Spencer (Atrovent 0.02% 0.5MG/2.5ML Neb) 0.5 mg Q6R INH 05/23/17 09:00 06/22/17 08:59 05/28/17 08:41 0.5 MG Levalbuterol (Xopenex 1.25MG/ 0.5ML Neb) 1.25 mg Q6R INH 05/23/17 09:00 06/22/17 08:59 05/28/17 08:41 1.25 MG Ipratropium Spencer (Atrovent 0.02% 0.5MG/2.5ML Neb) 0.5 mg Q4H PRN INH 05/23/17 05:15 06/22/17 05:14 05/25/17 00:20 0.5 MG Levalbuterol (Xopenex 1.25MG/ 0.5ML Neb) 1.25 mg Q4H PRN INH 05/23/17 05:15 06/22/17 05:14 05/25/17 00:20 1.25 MG Furosemide 40 mg/ Syringe 4 ml @ 4 mls/min DAILY IV 05/23/17 09:00 06/22/17 08:59 Future Hold 05/23/17 10:34 4 MLS/MIN Miscellaneous Information (Consult Glycemic Management Pharmacy) 1 ea UD N/A 05/23/17 09:48 06/22/17 09:47 Glucose (Glucose 40% Gel) 15-30 GRAMS 15 GRAMS... UD PRN PO 05/24/17 08:30 06/23/17 08:29 Glucose (Glucose Chew Tab) 4-8 Tablets 4 Tabl... UD PRN PO 05/24/17 08:30 06/23/17 08:29 Dextrose (Dextrose 50% 50ML Syringe) 25-50ML OF 50% DW IV FOR... UD PRN IV 05/24/17 08:30 06/23/17 08:29 05/27/17 23:29 25 ML Glucagon (Glucagon Inj) 1 mg UD PRN SQ 05/24/17 08:30 06/23/17 08:29 Amlodipine Besylate (Norvasc Tab) 5 mg QAM PO 05/25/17 09:00 06/24/17 08:59 05/28/17 08:23 5 MG Heparin Sodium/ Dextrose 500 ml @ 19 mls/hr Q24H PRN IV 05/24/17 13:15 06/23/17 13:14 Future hold 05/27/17 07:56 25 MLS/HR Parenteral Electrolyte Solution 1,000 ml @ 50 mls/hr Q20H IV 05/25/17 10:30 06/24/17 10:29 05/28/17 13:08 50 MLS/HR Cefepime HCl 2000 mg/Syringe 20 ml @ 5 mls/min Q24H IV 05/27/17 04:00 05/30/17 15:59 05/28/17 04:12 5 MLS/MIN Cefepime HCl (Consult) 1 ea UD PRN N/A 05/26/17 08:45 06/25/17 08:44 Insulin Human Regular 250 units/ Sodium Chloride 252.5 ml @ 0 mls/hr Q24H IV 05/26/17 21:30 06/25/17 21:29 05/27/17 20:48 2.6 MLS/HR Insulin Aspart (novoLOG ASPART) SLIDING SCALE PCHS SC 05/27/17 08:00 06/26/17 07:59 05/27/17 11:55 6 UNITS Amiodarone HCl (Cordarone Tab) 200 mg TIDM PO 05/27/17 11:30 06/26/17 11:29 05/28/17 12:16 200 MG Insulin Glargine (Lantus Solostar Pen) 20 units BID SC 05/27/17 21:00 06/26/17 20:59 05/28/17 08:25 20 UNITS Methylprednisolone Sodium Succinate 40 mg/Syringe 0.64 ml @ 1.5 mls/min Q12 IV 05/28/17 18:00 06/24/17 17:59 Gabapentin (Neurontin Cap) 300 mg HS PO 05/28/17 21:00 06/27/17 20:59 Last 24 Hours Test 05/27/17 14:33 05/27/17 15:54 05/27/17 17:13 05/27/17 18:18 Bedside Glucose 157 mg/dl 144 mg/dl 149 mg/dl 169 mg/dl Test 05/27/17 19:36 05/27/17 20:35 05/27/17 22:09 05/27/17 22:24 Bedside Glucose 185 mg/dl 141 mg/dl 115 mg/dl White Blood Count 11.04 K/uL Red Blood Count 3.53 M/uL Hemoglobin 9.7 g/dL Hematocrit 27.7 % Mean Corpuscular Volume 78.5 fL Mean Corpuscular Hemoglobin 27.5 pg Mean Corpuscular Hemoglobin Concent 35.0 g/dl Platelet Count 118 K/uL Mean Platelet Volume 9.2 fL Neutrophils (%) (Auto) 92.8 % Lymphocytes (%) (Auto) 2.4 % Monocytes (%) (Auto) 4.4 % Eosinophils (%) (Auto) 0.0 % Basophils (%) (Auto) 0.0 % Neutrophils # (Auto) 10.25 K/uL Lymphocytes # (Auto) 0.26 K/uL Monocytes # (Auto) 0.49 K/uL Eosinophils # (Auto) 0.00 K/uL Basophils # (Auto) 0.00 K/uL RDW Standard Deviation 37.8 fL RDW Coefficient of Variation 13.3 % Immature Granulocyte % (Auto) 0.4 % Immature Granulocyte # (Auto) 0.04 K/uL Prothrombin Time 10.7 SECONDS Prothromb Time International Ratio 1.0 Activated Partial Thromboplast Time 83.2 SECONDS Partial Thromboplastin Ratio 3.2 Sodium Level 135 mmol/L Potassium Level 3.6 mmol/L Chloride Level 101 mmol/L Carbon Dioxide Level 20 mmol/L Anion Gap 14.0 mmol/L Blood Urea Nitrogen 105 mg/dl Creatinine 4.39 mg/dl Est Creatinine Clear Calc Drug Dose 20.9 ml/min Estimated GFR () 15.5 Estimated GFR (Non- 13.3 BUN/Creatinine Ratio 23.8 Random Glucose 102 mg/dl Lactic Acid Level 1.6 mmol/L Calcium Level 8.2 mg/dl Phosphorus Level 6.1 mg/dl Magnesium Level 2.8 mg/dl Total Bilirubin 0.5 mg/dl Direct Bilirubin 0.1 mg/dl Aspartate Amino Transf (AST/SGOT) 24 U/L Alanine Aminotransferase (ALT/SGPT) 26 U/L Alkaline Phosphatase 53 U/L Ammonia < 10.0 umol/L Total Creatine Kinase 158 U/L Creatine Kinase MB 5.8 ng/ml Creatine Kinase MB Ratio 3.7 Troponin I 0.392 ng/ml Total Protein 5.7 gm/dl Albumin 2.3 gm/dl Procalcitonin 1.51 ng/ml Test 05/27/17 23:18 05/27/17 23:49 05/28/17 00:54 05/28/17 01:49 Bedside Glucose 93 mg/dl 138 mg/dl 127 mg/dl 132 mg/dl Test 05/28/17 03:02 05/28/17 04:12 05/28/17 05:02 05/28/17 06:01 Bedside Glucose 118 mg/dl 119 mg/dl 137 mg/dl 141 mg/dl Test 05/28/17 06:38 White Blood Count 11.18 K/uL Red Blood Count 3.40 M/uL Hemoglobin 9.3 g/dL Hematocrit 26.6 % Mean Corpuscular Volume 78.2 fL Mean Corpuscular Hemoglobin 27.4 pg Mean Corpuscular Hemoglobin Concent 35.0 g/dl Platelet Count 109 K/uL Mean Platelet Volume 9.0 fL Neutrophils (%) (Auto) 92.8 % Lymphocytes (%) (Auto) 3.3 % Monocytes (%) (Auto) 3.6 % Eosinophils (%) (Auto) 0.0 % Basophils (%) (Auto) 0.0 % Neutrophils # (Auto) 10.38 K/uL Lymphocytes # (Auto) 0.37 K/uL Monocytes # (Auto) 0.40 K/uL Eosinophils # (Auto) 0.00 K/uL Basophils # (Auto) 0.00 K/uL RDW Standard Deviation 38.0 fL RDW Coefficient of Variation 13.2 % Immature Granulocyte % (Auto) 0.3 % Immature Granulocyte # (Auto) 0.03 K/uL Activated Partial Thromboplast Time 58.8 SECONDS Partial Thromboplastin Ratio 2.3 Sodium Level 137 mmol/L Potassium Level 3.8 mmol/L Chloride Level 102 mmol/L Carbon Dioxide Level 23 mmol/L Anion Gap 12.0 mmol/L Blood Urea Nitrogen 114 mg/dl Creatinine 4.56 mg/dl Est Creatinine Clear Calc Drug Dose 20.0 ml/min Estimated GFR () 14.8 Estimated GFR (Non- 12.7 BUN/Creatinine Ratio 25.2 Random Glucose 114 mg/dl Calcium Level 8.2 mg/dl Phosphorus Level 6.4 mg/dl Magnesium Level 2.8 mg/dl Total Bilirubin 0.5 mg/dl Direct Bilirubin 0.1 mg/dl Aspartate Amino Transf (AST/SGOT) 24 U/L Alanine Aminotransferase (ALT/SGPT) 27 U/L Alkaline Phosphatase 54 U/L Total Protein 5.8 gm/dl Albumin 2.4 gm/dl Assessment & Plan [id number]- urinating well-creatinine continues to trend up and bun also elevated. has temporary dialysis catheter placed and for short dialysis treatment today. perhaps his confusion and tremors may be associated with renal failure or perhaps could be medication related which would improve with dialysis. 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 creatinine and kidney function should eventually recover.
[2017-05-28] MEDS: ACETAMINOPHEN 325 MG TAB PO PRN (18:03)
--- NOTE | 2017-05-28 18:52 | Progress Note ---
Medicine Progress Note Date & Time of Visit: May 28, 2017 at 18:47. Subjective seen after HD awake, alert, only oriented x 1 denies dyspnea, chest pain, nausea denies pain no other symptoms Objective Last 8 Hrs Date Time Temp Pulse Resp B/P (MAP) Pulse Ox O2 Delivery O2 Flow Rate FiO2 05/28/17 18:05 81 15 105/88 (94) 98 05/28/17 17:30 36.8 94 95/69 (78) 05/28/17 17:30 84 95/69 05/28/17 17:15 80 98/70 05/28/17 17:00 85 90/67 05/28/17 16:45 82 110/86 05/28/17 16:30 93 116/76 05/28/17 16:15 89 99/72 05/28/17 16:01 37.3 79 17 93/63 (73) 99 Nasal Cannula 2.0 05/28/17 16:00 98 Room Air 2.0 05/28/17 16:00 86 93/63 05/28/17 15:45 96 112/65 05/28/17 15:30 89 118/75 05/28/17 15:30 37.0 78 92/68 (76) 05/28/17 15:02 88 20 98 Room Air 05/28/17 14:00 37.0 88 20 102/65 (77) 98 Nasal Cannula 2.0 05/28/17 12:30 67 15 98 05/28/17 12:15 88 20 100 05/28/17 12:01 83 17 99 05/28/17 12:00 36.7 76 20 103/77 (86) 98 Nasal Cannula 2.0 05/28/17 12:00 Nasal Cannula 2.0 05/28/17 12:00 81 19 98 05/28/17 11:45 89 17 99 05/28/17 11:30 78 18 99 05/28/17 11:15 86 18 100 05/28/17 11:00 83 19 86/53 (64) Physical Exam: General- oriented x 3, not in distress, speaks in sentences with no effort Eyes- anicteric Neck- no JVD Lungs- clear breath sounds bilaterally Heart- irregular rhythm; no murmur, normal rate Abdomen- normal bowel sounds, soft, nontender Extremities- no pretibial edema, no calf tenderness; peripheral pulses intact Neuro- alert, oriented x 1;no gross focal deficits Skin- warm & dry Laboratory Results: Last 24 Hours Test 05/27/17 19:36 05/27/17 20:35 05/27/17 22:09 05/27/17 22:24 Bedside Glucose 185 mg/dl 141 mg/dl 115 mg/dl White Blood Count 11.04 K/uL Red Blood Count 3.53 M/uL Hemoglobin 9.7 g/dL Hematocrit 27.7 % Mean Corpuscular Volume 78.5 fL Mean Corpuscular Hemoglobin 27.5 pg Mean Corpuscular Hemoglobin Concent 35.0 g/dl Platelet Count 118 K/uL Mean Platelet Volume 9.2 fL Neutrophils (%) (Auto) 92.8 % Lymphocytes (%) (Auto) 2.4 % Monocytes (%) (Auto) 4.4 % Eosinophils (%) (Auto) 0.0 % Basophils (%) (Auto) 0.0 % Neutrophils # (Auto) 10.25 K/uL Lymphocytes # (Auto) 0.26 K/uL Monocytes # (Auto) 0.49 K/uL Eosinophils # (Auto) 0.00 K/uL Basophils # (Auto) 0.00 K/uL RDW Standard Deviation 37.8 fL RDW Coefficient of Variation 13.3 % Immature Granulocyte % (Auto) 0.4 % Immature Granulocyte # (Auto) 0.04 K/uL Prothrombin Time 10.7 SECONDS Prothromb Time International Ratio 1.0 Activated Partial Thromboplast Time 83.2 SECONDS Partial Thromboplastin Ratio 3.2 Sodium Level 135 mmol/L Potassium Level 3.6 mmol/L Chloride Level 101 mmol/L Carbon Dioxide Level 20 mmol/L Anion Gap 14.0 mmol/L Blood Urea Nitrogen 105 mg/dl Creatinine 4.39 mg/dl Est Creatinine Clear Calc Drug Dose 20.9 ml/min Estimated GFR () 15.5 Estimated GFR (Non- 13.3 BUN/Creatinine Ratio 23.8 Random Glucose 102 mg/dl Lactic Acid Level 1.6 mmol/L Calcium Level 8.2 mg/dl Phosphorus Level 6.1 mg/dl Magnesium Level 2.8 mg/dl Total Bilirubin 0.5 mg/dl Direct Bilirubin 0.1 mg/dl Aspartate Amino Transf (AST/SGOT) 24 U/L Alanine Aminotransferase (ALT/SGPT) 26 U/L Alkaline Phosphatase 53 U/L Ammonia < 10.0 umol/L Total Creatine Kinase 158 U/L Creatine Kinase MB 5.8 ng/ml Creatine Kinase MB Ratio 3.7 Troponin I 0.392 ng/ml Total Protein 5.7 gm/dl Albumin 2.3 gm/dl Procalcitonin 1.51 ng/ml Test 05/27/17 23:18 05/27/17 23:49 05/28/17 00:54 05/28/17 01:49 Bedside Glucose 93 mg/dl 138 mg/dl 127 mg/dl 132 mg/dl Test 05/28/17 03:02 05/28/17 04:12 05/28/17 05:02 05/28/17 06:01 Bedside Glucose 118 mg/dl 119 mg/dl 137 mg/dl 141 mg/dl Test 05/28/17 06:38 05/28/17 06:56 05/28/17 08:06 05/28/17 08:45 White Blood Count 11.18 K/uL Red Blood Count 3.40 M/uL Hemoglobin 9.3 g/dL Hematocrit 26.6 % Mean Corpuscular Volume 78.2 fL Mean Corpuscular Hemoglobin 27.4 pg Mean Corpuscular Hemoglobin Concent 35.0 g/dl Platelet Count 109 K/uL Mean Platelet Volume 9.0 fL Neutrophils (%) (Auto) 92.8 % Lymphocytes (%) (Auto) 3.3 % Monocytes (%) (Auto) 3.6 % Eosinophils (%) (Auto) 0.0 % Basophils (%) (Auto) 0.0 % Neutrophils # (Auto) 10.38 K/uL Lymphocytes # (Auto) 0.37 K/uL Monocytes # (Auto) 0.40 K/uL Eosinophils # (Auto) 0.00 K/uL Basophils # (Auto) 0.00 K/uL RDW Standard Deviation 38.0 fL RDW Coefficient of Variation 13.2 % Immature Granulocyte % (Auto) 0.3 % Immature Granulocyte # (Auto) 0.03 K/uL Activated Partial Thromboplast Time 58.8 SECONDS Partial Thromboplastin Ratio 2.3 Sodium Level 137 mmol/L Potassium Level 3.8 mmol/L Chloride Level 102 mmol/L Carbon Dioxide Level 23 mmol/L Anion Gap 12.0 mmol/L Blood Urea Nitrogen 114 mg/dl Creatinine 4.56 mg/dl Est Creatinine Clear Calc Drug Dose 20.0 ml/min Estimated GFR () 14.8 Estimated GFR (Non- 12.7 BUN/Creatinine Ratio 25.2 Random Glucose 114 mg/dl Calcium Level 8.2 mg/dl Phosphorus Level 6.4 mg/dl Magnesium Level 2.8 mg/dl Total Bilirubin 0.5 mg/dl Direct Bilirubin 0.1 mg/dl Aspartate Amino Transf (AST/SGOT) 24 U/L Alanine Aminotransferase (ALT/SGPT) 27 U/L Alkaline Phosphatase 54 U/L Total Protein 5.8 gm/dl Albumin 2.4 gm/dl Bedside Glucose 118 mg/dl 135 mg/dl 158 mg/dl Test 05/28/17 10:02 05/28/17 10:54 05/28/17 12:52 05/28/17 14:58 Bedside Glucose 156 mg/dl 155 mg/dl 129 mg/dl Hepatitis B Surface Antigen NEG Hepatitis B Surface Antibody NEG Test 05/28/17 15:16 Bedside Glucose 122 mg/dl Assessment & Plan 62m with hx of chf ef 35-40%, CAD, DM, HTN presenting with shortness of breath. ACUTE HYPOXIC RESPIRATORY FAILURE SECONDARY TO: - remains on 2 L of NC afebrile INFLUENZA INFECTION - completed Tamiflu BILATERAL PNEUMONIA - on Cefepime + Doxy POSSIBLE ACUTE ON CHRONIC CHF EXACERBATION - s/p IV Lasix held for now due to Acute Renal Failure on CKD ACUTE RENAL FAILURE ON CKD 4 - s/p IV Lasix given intermittent IV NSS - crea increased to 4s (+) altered mental status likely from Uremia - started on HD today monitor Nephrology on board POSSIBLE ASTHMA EXACERBATION - possible underlying ARPIT - on Nebs Solumedrol A FIB IN RVR rate controlled on Amiodarone PO, Carvedilol Heparin discontinued HHS, DM 2 a1c 9.5 transitioned to Insulin Lantus Hypertension d/c Amlodipine continue Carvedilol Nonocclusive CAD ASA Chronic anemia secondary to kidney disease Hg 12 to 10 monitor Chronic thrombocytopenia. Plt 130 to 85--> 109 monitor Dvt px scds heparin on hold as patient had cath placement Disposition pending will need PT/OT may need Rehab/SNF upon discharge Current Inpatient Medications: Current Inpatient Medications Medications (Trade) Dose Ordered Sig/Larry Route Start Time Stop Time Status Last Admin Dose Admin Doxycycline Hyclate (Vibramycin Cap) 100 mg BID PO 2/3/18 21:00 05/30/17 20:59 05/28/17 08:23 100 MG Acetaminophen (Tylenol Tab) 650 mg Q4H PRN PO 05/23/17 04:30 06/22/17 04:29 05/28/17 18:03 650 MG Nitroglycerin (Nitrostat Tab) 0.4 mg UD PRN SL 05/23/17 04:30 06/22/17 04:29 Hydromorphone HCl (Dilaudid Inj) 0.5 mg Q3H PRN IV 05/23/17 04:30 06/06/17 04:29 Tramadol HCl (Ultram Tab) not relieved ... Q6H PRN PO 05/23/17 04:30 06/22/17 04:29 Aspirin (Ecotrin Tab) 81 mg QAM PO 05/23/17 09:00 06/22/17 08:59 05/28/17 08:22 81 MG Carvedilol (Coreg Tab) 12.5 mg BID PO 05/23/17 09:00 06/22/17 08:59 05/28/17 08:22 12.5 MG Duloxetine HCl (Cymbalta Cap) 60 mg DAILY PO 05/23/17 09:00 06/22/17 08:59 05/28/17 08:22 60 MG Isosorbide Dinitrate (Isordil Tab) 20 mg TID@0700,1200,1700 PO 05/23/17 07:00 06/22/17 06:59 05/28/17 18:06 20 MG Pantoprazole Sodium (Protonix Tab) 40 mg QAM PO 05/23/17 09:00 06/22/17 08:59 05/28/17 08:23 40 MG Rosuvastatin Calcium (Crestor Tab) 40 mg HS PO 05/23/17 21:00 06/22/17 20:59 05/27/17 20:46 40 MG Prochlorperazine Edisylate 5 mg/ Syringe 5 ml @ 5 mls/min Q6H PRN IV 05/23/17 04:30 06/22/17 04:29 05/25/17 09:28 5 MLS/MIN Guaifenesin (Mucinex Contr Rel Tab) 600 mg BID PO 05/23/17 21:00 06/22/17 20:59 05/28/17 08:22 600 MG Ipratropium [place] (Atrovent 0.02% 0.5MG/2.5ML Neb) 0.5 mg Q6R INH 05/23/17 09:00 06/22/17 08:59 05/28/17 15:02 0.5 MG Levalbuterol (Xopenex 1.25MG/ 0.5ML Neb) 1.25 mg Q6R INH 05/23/17 09:00 06/22/17 08:59 05/28/17 15:02 1.25 MG Ipratropium [place] (Atrovent 0.02% 0.5MG/2.5ML Neb) 0.5 mg Q4H PRN INH 05/23/17 05:15 06/22/17 05:14 05/25/17 00:20 0.5 MG Levalbuterol (Xopenex 1.25MG/ 0.5ML Neb) 1.25 mg Q4H PRN INH 05/23/17 05:15 06/22/17 05:14 05/25/17 00:20 1.25 MG Furosemide 40 mg/ Syringe 4 ml @ 4 mls/min DAILY IV 05/23/17 09:00 06/22/17 08:59 Future Hold 05/23/17 10:34 4 MLS/MIN Miscellaneous Information (Consult Glycemic Management Pharmacy) 1 ea UD N/A 05/23/17 09:48 06/22/17 09:47 Glucose (Glucose 40% Gel) 15-30 GRAMS 15 GRAMS... UD PRN PO 05/24/17 08:30 06/23/17 08:29 Glucose (Glucose Chew Tab) 4-8 Tablets 4 Tabl... UD PRN PO 05/24/17 08:30 06/23/17 08:29 Dextrose (Dextrose 50% 50ML Syringe) 25-50ML OF 50% DW IV FOR... UD PRN IV 05/24/17 08:30 06/23/17 08:29 05/27/17 23:29 25 ML Glucagon (Glucagon Inj) 1 mg UD PRN SQ 05/24/17 08:30 06/23/17 08:29 Amlodipine Besylate (Norvasc Tab) 5 mg QAM PO 05/25/17 09:00 06/24/17 08:59 05/28/17 08:23 5 MG Heparin Sodium/ Dextrose 500 ml @ 19 mls/hr Q24H PRN IV 05/24/17 13:15 06/23/17 13:14 Future hold 05/27/17 07:56 25 MLS/HR Parenteral Electrolyte Solution 1,000 ml @ 50 mls/hr Q20H IV 05/25/17 10:30 06/24/17 10:29 05/28/17 13:08 50 MLS/HR Cefepime HCl 2000 mg/Syringe 20 ml @ 5 mls/min Q24H IV 05/27/17 04:00 05/30/17 15:59 05/28/17 04:12 5 MLS/MIN Cefepime HCl (Consult) 1 ea UD PRN N/A 05/26/17 08:45 06/25/17 08:44 Insulin Human Regular 250 units/ Sodium Chloride 252.5 ml @ 0 mls/hr Q24H IV 05/26/17 21:30 06/25/17 21:29 05/27/17 20:48 2.6 MLS/HR Insulin Aspart (novoLOG ASPART) SLIDING SCALE PCHS SC 05/27/17 08:00 06/26/17 07:59 05/27/17 11:55 6 UNITS Amiodarone HCl (Cordarone Tab) 200 mg TIDM PO 05/27/17 11:30 06/26/17 11:29 05/28/17 18:04 200 MG Insulin Glargine (Lantus Solostar Pen) 20 units BID SC 05/27/17 21:00 06/26/17 20:59 05/28/17 08:25 20 UNITS Methylprednisolone Sodium Succinate 40 mg/Syringe 0.64 ml @ 1.5 mls/min Q12 IV 05/28/17 18:00 06/24/17 17:59 05/28/17 18:05 1.5 MLS/MIN Gabapentin (Neurontin Cap) 300 mg HS PO 05/28/17 21:00 06/27/17 20:59
[2017-05-28 20:12] LABS: PTT PATIENT 57.2 SECONDS (21.0-31.0)
[2017-05-28] MEDS: GABAPENTIN 300 MG CAP PO SCH (21:14)
[2017-05-28] MEDS: ROSUVASTATIN CALCIUM 20 MG TAB PO SCH (21:15)
[2017-05-28] MEDS: INSULIN REGULAR 250 UNITS in SODIUM CHLORIDE 0.9% 250ML 250 ML IV SCH (22:04)
[2017-05-29] VITALS (49 sets, daily range): BP systolic 85–140; BP diastolic 54–95; PULSE 75–129; TEMP 36.4–36.8; O2SAT 85–100; Ht 172.7 cm; Wt 110.1 kg
[2017-05-29] MEDS: IPRATROPIUM BROMIDE NEB SOLN 0.02% 2.5 ML VIAL INH SCH ×4 (01:45→20:24)
[2017-05-29] MEDS: LEVALBUTEROL 1.25MG/0.5ML NEB INH SCH ×4 (01:45→20:24)
[2017-05-29] MEDS: CEFEPIME IV 2,000 MG in SYRINGE 7.5 ML IV SCH (03:23)
[2017-05-29 05:58] LABS: HEMATOCRIT 22.4 % (42-52); HEMOGLOBIN 7.7 g/dL (14.0-18.0); MEAN CELL VOLUME 79.2 fL (80-100); MEAN CORPUSCULAR HEMOGLOBIN 27.2 pg (25-34); MEAN CORPUSCULAR HGB CONC 34.4 g/dl (32-36); MEAN PLATELET VOLUME 8.9 fL (7.4-10.4); PLATELET COUNT 105 K/uL (130-400); RED CELL DISTRIBUTION WIDTH CV 13.4 % (11.5-14.5); RED CELL DISTRIBUTION WIDTH SD 38.9 fL (36.4-46.3); WHITE BLOOD COUNT 7.67 K/uL (4.8-10.8)
[2017-05-29 06:18] LABS: CALCIUM 8.1 mg/dl (8.5-10.1); CREATININE 4.1 mg/dl (0.60-1.40); POTASSIUM 4.2 mmol/L (3.5-5.1)
[2017-05-29 06:29] LABS: PTT PATIENT 54.1 SECONDS (21.0-31.0)
[2017-05-29] MEDS: INSULIN ASPART 100 UNITS/ML 3 ML PEN SC SCH ×4 (08:00→20:30)
[2017-05-29] MEDS: GUAIFENESIN 600 MG TABCR PO SCH ×2 (08:02→20:27)
[2017-05-29] MEDS: ISOSORBIDE DINITRATE 20 MG TAB PO SCH ×3 (08:02→20:27)
[2017-05-29] MEDS: ASPIRIN 81 MG ECTAB PO SCH (08:03)
[2017-05-29] MEDS: AMIODARONE 200 MG TAB PO SCH ×3 (08:03→20:28)
[2017-05-29] MEDS: DULOXETINE HCL 60 MG CAP PO SCH (08:03)
[2017-05-29] MEDS: CARVEDILOL 12.5 MG TAB PO SCH ×2 (08:03→20:27)
[2017-05-29] MEDS: PANTOprazole SOD 40 MG TAB PO SCH (08:04)
[2017-05-29] MEDS: DOXYCYCLINE HYCLATE 100 MG CAP PO SCH ×2 (08:05→20:27)
--- NOTE | 2017-05-29 08:05 | Nephrology Progress Note ---
Nephrology Progress Note Date of Service: May 29, 2017. Subjective 62 yo male with flu/afib rate controlled with atn who had dialysis yesterday to help improve tremors and confusion. urinating well and tolerating iv fluids well. tremors are better today but continues to have element of confusion. Objective Date Time Temp Pulse Resp B/P (MAP) Pulse Ox O2 Delivery O2 Flow Rate FiO2 05/29/17 07:03 82 18 97 Nasal Cannula 2.0 05/29/17 06:00 103 18 113/85 (94) 97 Nasal Cannula 2.0 05/29/17 04:00 99 Nasal Cannula 2.0 05/29/17 04:00 36.4 90 14 93/68 (76) 98 Nasal Cannula 2.0 05/29/17 02:00 88 16 110/83 (92) 98 Nasal Cannula 2.0 05/29/17 01:45 87 18 99 Nasal Cannula 2.0 05/29/17 00:01 36.6 87 19 111/76 (88) 100 Nasal Cannula 2.0 05/28/17 23:59 95 Nasal Cannula 2.0 05/28/17 22:01 93 13 97/73 (81) 100 05/28/17 21:01 94 17 107/72 (84) 94 05/28/17 20:03 86 16 95 Room Air 05/28/17 20:00 98 Room Air 2.0 05/28/17 20:00 36.4 80 19 97/73 (81) 93 Nasal Cannula 2.0 05/28/17 18:05 81 15 105/88 (94) 98 05/28/17 17:30 36.8 94 95/69 (78) 05/28/17 17:30 84 95/69 05/28/17 17:15 80 98/70 05/28/17 17:00 85 90/67 05/28/17 16:45 82 110/86 05/28/17 16:30 93 116/76 05/28/17 16:15 89 99/72 05/28/17 16:01 37.3 79 17 93/63 (73) 99 Nasal Cannula 2.0 05/28/17 16:00 98 Room Air 2.0 05/28/17 16:00 86 93/63 05/28/17 15:45 96 112/65 2/8/18 15:30 89 118/75 05/28/17 15:30 37.0 78 92/68 (76) 05/28/17 15:02 88 20 98 Room Air 05/28/17 14:00 37.0 88 20 102/65 (77) 98 Nasal Cannula 2.0 05/28/17 12:30 67 15 98 05/28/17 12:15 88 20 100 05/28/17 12:01 83 17 99 05/28/17 12:00 36.7 76 20 103/77 (86) 98 Nasal Cannula 2.0 05/28/17 12:00 Nasal Cannula 2.0 05/28/17 12:00 81 19 98 05/28/17 11:45 89 17 99 05/28/17 11:30 78 18 99 05/28/17 11:15 86 18 100 05/28/17 11:00 83 19 86/53 (64) 05/28/17 10:45 85 20 98 05/28/17 10:15 82 21 95 05/28/17 10:01 69 18 108/63 (78) 97 05/28/17 10:00 79 18 97 05/28/17 09:45 67 21 97 05/28/17 09:30 84 20 93 05/28/17 09:15 83 14 98 05/28/17 09:01 87 14 82/63 (69) 89 05/28/17 09:00 82 23 05/28/17 08:45 82 16 100 05/28/17 08:41 104 20 96 Room Air 05/28/17 08:30 133 19 98 05/28/17 08:15 82 18 100 Physical Exam: General-confused Eyes-no scleral icterus ENT-mmm Neck-supple Lungs-clear Heart-irregularly irregular Abdomen-bs+ s/nt/nd Extremities-no c/c/e Neuro-mild tremors Current Inpatient Medications Medications (Trade) Dose Ordered Sig/Larry Route Start Time Stop Time Status Last Admin Dose Admin Doxycycline Hyclate (Vibramycin Cap) 100 mg BID PO 05/23/17 21:00 05/30/17 20:59 05/28/17 21:14 100 MG Acetaminophen (Tylenol Tab) 650 mg Q4H PRN PO 05/23/17 04:30 06/22/17 04:29 05/28/17 18:03 650 MG Nitroglycerin (Nitrostat Tab) 0.4 mg UD PRN SL 05/23/17 04:30 06/22/17 04:29 Hydromorphone HCl (Dilaudid Inj) 0.5 mg Q3H PRN IV 05/23/17 04:30 06/06/17 04:29 Tramadol HCl (Ultram Tab) not relieved ... Q6H PRN PO 05/23/17 04:30 06/22/17 04:29 Aspirin (Ecotrin Tab) 81 mg QAM PO 05/23/17 09:00 06/22/17 08:59 05/28/17 08:22 81 MG Carvedilol (Coreg Tab) 12.5 mg BID PO 05/23/17 09:00 06/22/17 08:59 05/28/17 21:13 12.5 MG Duloxetine HCl (Cymbalta Cap) 60 mg DAILY PO 05/23/17 09:00 06/22/17 08:59 05/28/17 08:22 60 MG Isosorbide Dinitrate (Isordil Tab) 20 mg TID@0700,1200,1700 PO 05/23/17 07:00 06/22/17 06:59 05/28/17 18:06 20 MG Pantoprazole Sodium (Protonix Tab) 40 mg QAM PO 05/23/17 09:00 06/22/17 08:59 05/28/17 08:23 40 MG Rosuvastatin Calcium (Crestor Tab) 40 mg HS PO 05/23/17 21:00 06/22/17 20:59 05/28/17 21:15 40 MG Prochlorperazine Edisylate 5 mg/ Syringe 5 ml @ 5 mls/min Q6H PRN IV 05/23/17 04:30 06/22/17 04:29 05/25/17 09:28 5 MLS/MIN Guaifenesin (Mucinex Contr Rel Tab) 600 mg BID PO 05/23/17 21:00 06/22/17 20:59 05/28/17 21:14 600 MG Ipratropium [place] (Atrovent 0.02% 0.5MG/2.5ML Neb) 0.5 mg Q6R INH 05/23/17 09:00 06/22/17 08:59 05/29/17 07:02 0.5 MG Levalbuterol (Xopenex 1.25MG/ 0.5ML Neb) 1.25 mg Q6R INH 05/23/17 09:00 06/22/17 08:59 05/29/17 07:02 1.25 MG Ipratropium [place] (Atrovent 0.02% 0.5MG/2.5ML Neb) 0.5 mg Q4H PRN INH 05/23/17 05:15 06/22/17 05:14 05/25/17 00:20 0.5 MG Levalbuterol (Xopenex 1.25MG/ 0.5ML Neb) 1.25 mg Q4H PRN INH 05/23/17 05:15 06/22/17 05:14 05/25/17 00:20 1.25 MG Furosemide 40 mg/ Syringe 4 ml @ 4 mls/min DAILY IV 05/23/17 09:00 06/22/17 08:59 Future Hold 05/23/17 10:34 4 MLS/MIN Miscellaneous Information (Consult Glycemic Management Pharmacy) 1 ea UD N/A 05/23/17 09:48 06/22/17 09:47 Glucose (Glucose 40% Gel) 15-30 GRAMS 15 GRAMS... UD PRN PO 05/24/17 08:30 06/23/17 08:29 Glucose (Glucose Chew Tab) 4-8 Tablets 4 Tabl... UD PRN PO 05/24/17 08:30 06/23/17 08:29 Dextrose (Dextrose 50% 50ML Syringe) 25-50ML OF 50% DW IV FOR... UD PRN IV 05/24/17 08:30 06/23/17 08:29 05/27/17 23:29 25 ML Glucagon (Glucagon Inj) 1 mg UD PRN SQ 05/24/17 08:30 06/23/17 08:29 Heparin Sodium/ Dextrose 500 ml @ 19 mls/hr Q24H PRN IV 05/24/17 13:15 06/23/17 13:14 Future hold 05/27/17 07:56 25 MLS/HR Parenteral Electrolyte Solution 1,000 ml @ 50 mls/hr Q20H IV 05/25/17 10:30 06/24/17 10:29 05/28/17 13:08 50 MLS/HR Cefepime HCl 2000 mg/Syringe 20 ml @ 5 mls/min Q24H IV 05/27/17 04:00 05/30/17 15:59 05/29/17 03:23 5 MLS/MIN Cefepime HCl (Consult) 1 ea UD PRN N/A 05/26/17 08:45 06/25/17 08:44 Insulin Human Regular 250 units/ Sodium Chloride 252.5 ml @ 0 mls/hr Q24H IV 05/26/17 21:30 06/25/17 21:29 05/28/17 22:04 0.4 MLS/HR Insulin Aspart (novoLOG ASPART) SLIDING SCALE PCHS SC 05/27/17 08:00 06/26/17 07:59 05/27/17 11:55 6 UNITS Amiodarone HCl (Cordarone Tab) 200 mg TIDM PO 05/27/17 11:30 06/26/17 11:29 05/28/17 18:04 200 MG Insulin Glargine (Lantus Solostar Pen) 20 units BID SC 05/27/17 21:00 06/26/17 20:59 05/28/17 21:18 10 UNITS Methylprednisolone Sodium Succinate 40 mg/Syringe 0.64 ml @ 1.5 mls/min Q12 IV 05/28/17 18:00 06/24/17 17:59 05/28/17 18:05 1.5 MLS/MIN Gabapentin (Neurontin Cap) 300 mg HS PO 05/28/17 21:00 06/27/17 20:59 05/28/17 21:14 300 MG Last 24 Hours Test 05/28/17 08:06 05/28/17 08:45 05/28/17 10:02 05/28/17 10:54 Bedside Glucose 135 mg/dl 158 mg/dl 156 mg/dl 155 mg/dl Test 05/28/17 12:52 05/28/17 14:58 05/28/17 15:16 05/28/17 16:57 Bedside Glucose 129 mg/dl 122 mg/dl 110 mg/dl Hepatitis B Surface Antigen NEG Hepatitis B Surface Antibody NEG Test 05/28/17 18:15 05/28/17 19:08 05/28/17 19:42 05/28/17 20:32 Bedside Glucose 108 mg/dl 109 mg/dl 109 mg/dl Activated Partial Thromboplast Time 57.2 SECONDS Partial Thromboplastin Ratio 2.2 Test 05/28/17 21:31 05/28/17 22:36 05/28/17 23:20 05/29/17 00:25 Bedside Glucose 106 mg/dl 105 mg/dl 107 mg/dl 111 mg/dl Test 05/29/17 01:30 05/29/17 02:29 05/29/17 03:57 05/29/17 05:38 Bedside Glucose 104 mg/dl 102 mg/dl 111 mg/dl White Blood Count 7.67 K/uL Red Blood Count 2.83 M/uL Hemoglobin 7.7 g/dL Hematocrit 22.4 % Mean Corpuscular Volume 79.2 fL Mean Corpuscular Hemoglobin 27.2 pg Mean Corpuscular Hemoglobin Concent 34.4 g/dl RDW Standard Deviation 38.9 fL RDW Coefficient of Variation 13.4 % Platelet Count 105 K/uL Mean Platelet Volume 8.9 fL Activated Partial Thromboplast Time 54.1 SECONDS Partial Thromboplastin Ratio 2.1 Sodium Level 138 mmol/L Potassium Level 4.2 mmol/L Chloride Level 103 mmol/L Carbon Dioxide Level 25 mmol/L Anion Gap 10.0 mmol/L Blood Urea Nitrogen 96 mg/dl Creatinine 4.10 mg/dl Est Creatinine Clear Calc Drug Dose 22.2 ml/min Estimated GFR () 16.8 Estimated GFR (Non- 14.5 BUN/Creatinine Ratio 23.3 Random Glucose 114 mg/dl Calcium Level 8.1 mg/dl Test 05/29/17 06:03 Bedside Glucose 121 mg/dl Assessment & Plan [id number]-[id number]- urinating well-pt though was confused with worsening tremors and elevated bun and creatinine. initiated diaysis yesterday. catheter positional. plan on dialysis wiht no fluid removal today and again tomorrow and then see if mental status improving. continue to look for other possible causes for confusion.
[2017-05-29] MEDS: INSULIN GLARGINE SOLOSTAR 100 UNITS/ML 3 ML PEN SC SCH ×2 (08:06→20:30)
[2017-05-29] MEDS: METHYLPREDNISOLONE IV 40 MG in SYRINGE 0 ML IV SCH (08:13)
[2017-05-29] MEDS: POLYETHYLENE (MIRALAX) 17 GM PACK PO SCH (09:22)
[2017-05-29] MEDS: DOCUSATE SODIUM 100 MG CAP PO SCH ×2 (09:22→20:27)
--- NOTE | 2017-05-29 11:54 | Pharmacy Progress Note ---
Glycemic Control Progress Note Date of Service May 29, 2017. Scope Glycemic Pharmacist consulted for glycemic control to write orders per [facility] inpatient glycemic control protocol. Objective Accuchecks BSG (last 24hrs): Test 05/28/17 12:52 05/28/17 15:16 05/28/17 16:57 05/28/17 18:15 Bedside Glucose 129 mg/dl (70-99) 122 mg/dl (70-99) 110 mg/dl (70-99) 108 mg/dl (70-99) Test 05/28/17 19:08 05/28/17 20:32 05/28/17 21:31 05/28/17 22:36 Bedside Glucose 109 mg/dl (70-99) 109 mg/dl (70-99) 106 mg/dl (70-99) 105 mg/dl (70-99) Test 05/28/17 23:20 05/29/17 00:25 05/29/17 01:30 05/29/17 02:29 Bedside Glucose 107 mg/dl (70-99) 111 mg/dl (70-99) 104 mg/dl (70-99) 102 mg/dl (70-99) Test 05/29/17 03:57 05/29/17 05:38 05/29/17 06:03 Bedside Glucose 111 mg/dl (70-99) 121 mg/dl (70-99) Random Glucose 114 mg/dl (70-99) HbA1c: Test 05/27/17 05:37 Hemoglobin A1c 9.5 % (4.5-5.6) H Recent Pertinent Medications The patient is currently receiving: * IV insulin infusion per moderate stress protocol; goal range 120-200mg/dL * Basal insulin: Lantus 20 units SQ x 1 in the AM + 10 units SQ in the PM * Correctional Insulin: Novolog Correction per scale ACHS Goal Range: Low -- mg/dL - High -- mg/dL Correction Factor: -- mg/dL/unit * Prandial insulin: Per carb ratio 1 unit per 4 grams CHO consumed w/ meals Outpatient Anti-Diabetic Meds Lantus 45 units SQ HS Novolog 7 units w/ breakfast + 14 units w/ lunch 14 units w/ dinner Assessment & Plan ASSESSMENT: 05/28/17 * Patient remains on insulin drip this AM * BSGs within goal range * Insulin infusion rates have steadily decreased with the addition of Lantus 20 units SQ BID yesterday; Insulin rate 4.1 units/hr yesterday AM vs 1.2 units/hr this AM. Insulin infusion rates may also be lessening due to declining renal fxn and prolonged insulin half-life. * Of note, only one dose of Lantus 20 units SQ given yesterday, evening dose of 20 units was held by provider/RN * He has consistently exhibited carb sensitivity while on high dose IV steroid therapy. However steroid dose is being tapered from Solu-medrol 40mg IV Q 8 hours to Q 12 hours today. This may result in increased insulin sensitivity as well. 05/29/17 * Patient remains on insulin drip this AM * BSGs ranging 105-121 at this time * Insulin drip actually placed on hold this AM due to BSGs being below goal * Pt received a total of 30 units Lantus yesterday * Patient's PO intake has been poor, this combined with additional basal insulin , recent dialysis and a step down in steroid dose have led to reduced insulin needs * Will stop the insulin drip at this time and manage with SQ the next 24 hrs. We need the SQ and BSG data to successfully keep this patient off the insulin drip. His mental status has been poor and the frequent finger sticks likely are not helping. He likely has near adequate basal insulin on board at this time and with HD planned for today, this would be a good time to transition. PLAN FOR INPATIENT GLYCEMIC CONTROL: * Hold the insulin drip at this time * Lantus BID per the following scale: * 0 units if BSG less than 110 * 10 units if BSG 110-140 * 20 units if BSG above 140 * Novolog SQ ACHS and at 0200 tonight * Correction factor 12 mg/dl/unit * Carb ratio 1 unit per 4 grams CHO consumed * Goal range Low 120 mg/dL - High 150 mg/dL * Please note that the plan above was derived based on current level of insulin resistance and hospital stress. These recommendations are appropriate for inpatient admission only. Plan of care upon discharge will need to be reassessed to avoid potential outpatient hypo/hyperglycemia. Thank you.
[2017-05-29 12:20] LABS: HEMATOCRIT 21.4 % (42-52); HEMOGLOBIN 7.4 g/dL (14.0-18.0); MEAN CELL VOLUME 79.6 fL (80-100); MEAN CORPUSCULAR HEMOGLOBIN 27.5 pg (25-34); MEAN CORPUSCULAR HGB CONC 34.6 g/dl (32-36); MEAN PLATELET VOLUME 9.4 fL (7.4-10.4); PLATELET COUNT 104 K/uL (130-400); RED CELL DISTRIBUTION WIDTH CV 13.5 % (11.5-14.5); RED CELL DISTRIBUTION WIDTH SD 39.5 fL (36.4-46.3); WHITE BLOOD COUNT 7.01 K/uL (4.8-10.8)
--- NOTE | 2017-05-29 13:23 | Cardiology Follow-Up ---
Subjective General Date of Service: May 29, 2017. Chief Complaint: follow up shortness of breath Pt evaluation today including: conversation w/ patient, physical exam History of Present Illness The patient is a 62 year old male seen in follow up. Patient confused. No respiratory status improved. Had first HD session on 05/28. Allergies Coded Allergies: No Known Allergies (Verified , 05/23/17) Social History Smoking Status: Never Smoker Hx Tobacco Use In Past Year?: No Hx Alcohol Use - Type And Amou: No Hx Substance Use - Type And Am: No Problem List Medical Problems: (1) CHF (congestive heart failure) Status: Acute (2) CHF (congestive heart failure) Status: Acute (3) Diffuse abdominal pain Status: Acute (4) Elevated troponin Status: Acute (5) Precordial chest pain Status: Acute (6) Renal cyst Status: Acute (7) Shortness of breath Status: Acute (8) Shortness of breath Status: Acute Physical Exam Vital Signs Last Vital Signs Documentation Date Time Temp Pulse Resp B/P (MAP) Pulse Ox O2 Delivery O2 Flow Rate FiO2 05/29/17 11:25 36.4 75 18 104/85 (91) 97 Nasal Cannula 2.0 05/29/17 09:42 40 Physical Exam Constitutional: Level of Distress: acutely ill ENMT: TMs normal Neck: supple, trachea midline Lungs: Auscultation: pertinent finding (Decreased BS at bases bilaterally-improved) Cardiovascular: Heart Auscultation: RRR, pertinent finding (04/25) Abdomen: Inspection & Palpation: soft, non-distended Extremities: no edema Neurologic: Gait & Station: pertinent finding (confuse, tremor) Assessment and Plan Assessment and Plan Impression: 62-year-old male 1. Acute influenza A, resultant cough generalized malaise, respiratory insufficiency 2. Superimposed acute systolic heart failure decompensation, history of left bundle branch block, nonischemic cardiomyopathy, LVEF 30-40% March 2017 3. Acute kidney injury (nonoliguric) on stage III chronic kidney disease, 4. atrial fibrillation , new onset 5. encephalopathy / delirium, perhaps due to uremia. Also could be from Tamiflu 6. anemia Plan: Telemetry reveals AF. rate controlled. Heparin on hold due to anemia. Continue supportive care . Laboratory Results Last 24 Hours Test 05/28/17 14:58 05/28/17 15:16 05/28/17 16:57 2/8/18 18:15 Hepatitis B Surface Antigen NEG Hepatitis B Surface Antibody NEG Bedside Glucose 122 mg/dl 110 mg/dl 108 mg/dl Test 05/28/17 19:08 05/28/17 19:42 05/28/17 20:32 05/28/17 21:31 Bedside Glucose 109 mg/dl 109 mg/dl 106 mg/dl Activated Partial Thromboplast Time 57.2 SECONDS Partial Thromboplastin Ratio 2.2 Test 05/28/17 22:36 05/28/17 23:20 05/29/17 00:25 05/29/17 01:30 Bedside Glucose 105 mg/dl 107 mg/dl 111 mg/dl 104 mg/dl Test 05/29/17 02:29 05/29/17 03:57 05/29/17 05:38 05/29/17 06:03 Bedside Glucose 102 mg/dl 111 mg/dl 121 mg/dl White Blood Count 7.67 K/uL Red Blood Count 2.83 M/uL Hemoglobin 7.7 g/dL Hematocrit 22.4 % Mean Corpuscular Volume 79.2 fL Mean Corpuscular Hemoglobin 27.2 pg Mean Corpuscular Hemoglobin Concent 34.4 g/dl RDW Standard Deviation 38.9 fL RDW Coefficient of Variation 13.4 % Platelet Count 105 K/uL Mean Platelet Volume 8.9 fL Activated Partial Thromboplast Time 54.1 SECONDS Partial Thromboplastin Ratio 2.1 Sodium Level 138 mmol/L Potassium Level 4.2 mmol/L Chloride Level 103 mmol/L Carbon Dioxide Level 25 mmol/L Anion Gap 10.0 mmol/L Blood Urea Nitrogen 96 mg/dl Creatinine 4.10 mg/dl Est Creatinine Clear Calc Drug Dose 22.2 ml/min Estimated GFR () 16.8 Estimated GFR (Non- 14.5 BUN/Creatinine Ratio 23.3 Random Glucose 114 mg/dl Calcium Level 8.1 mg/dl Test 05/29/17 11:50 White Blood Count 7.01 K/uL Red Blood Count 2.69 M/uL Hemoglobin 7.4 g/dL Hematocrit 21.4 % Mean Corpuscular Volume 79.6 fL Mean Corpuscular Hemoglobin 27.5 pg Mean Corpuscular Hemoglobin Concent 34.6 g/dl RDW Standard Deviation 39.5 fL RDW Coefficient of Variation 13.5 % Platelet Count 104 K/uL Mean Platelet Volume 9.4 fL
--- NOTE | 2017-05-29 15:47 | Procedure Note ---
Procedure Note Procedure Date May 29, 2017. Procedure Description Procedure Name: Left femoral double lumen hemodialysis catheter Central Line Procedure time out: side/site verified, patient ID confirmed, sterile procedure used Consent obtained: written Time of procedure: 14:10 Performed by: attending Indications: other (Hemodialysis) Prep: chlorhexadine prep, sterile drape, sterile procedures used Anesthesia: local injection, lidocaine 1% without epi Central line lumen: double Central line location: femoral (L) Additional details: percutaneous placement, ultrasound guidance, Selinger technique used, line sutured, good blood return Complications: none Patient tolerated procedure: well Post-procedure vital signs: reviewed and stable
[2017-05-29] MEDS: NORMOSOL R 1,000 ML IV SCH (16:03)
--- NOTE | 2017-05-29 18:37 | Critical Care Progress Note ---
Critical Care Progress Note Date of Service May 29, 2017. Attending Dr. Eric Subjective Still confused, but the twitching nearly resolved. The right femoral HD catheter has been malfunctioning, so a left femoral double lumen HD catheter has been inserted. Now undergoing HD Objective General Appearance: comfortable. Head: small excoriation over the lateral aspect of left eyebrow. Eyes: PERRLA Neck: trachea midline, no stridor, supple Respiratory: No wheezing Cardiovascular: irregular rate Abdomen: non tender, no rebound. Back: normal inspection. Extremities: no edema, dry skin. Left hip normal in appearance, no ecchymosis, no hematoma Neuro: alert, oriented x 3, occasional twitching Assessment & Plan 62 year old male with h/o CHF, asthma, diabetic, presents with shortness of breath, positive for influenza A. At this point, I believe that the respiratory symptoms are related to intrinsic lung disease secondary to asthma/flu rather than fluid overload. Has PAM on CKD. Plan: Continue gentle hydration. Oseltamivir course completed Also on antibiotic coverage as there is some focality on CXR. On cefepime and doxycycline Continue bronchodilators Change to po steroids today Now tolerating nasal cannula Monitor mental status, hopefully it will continue to improve with hemodialysis Monitor renal indices, urine output. HD again today. HD catheter changed. Continue on IV fluids. PO amiodarone Continue heparin drip today (held for 4 hours for the HD catheter insertion) Coreg 12.5 mg bid On an insulin drip. Critical care time spent with the patient, reviewing chart, discussing with consultants, greater than 35 minutes Requires ICU monitoring as he is still in respiratory failure, significant toxic -metabolic encephalopathy, PAM, may require intubation, on hemodialysis, requires very close monitoring. Consults & Procedures Consultants: Cardiology: Dr Sethi Renal: Dr Manley Procedures: 05/28/17 - right femoral HD catheter Data Medications: Current Inpatient Medications Medications (Trade) Dose Ordered Sig/Larry Route Start Time Stop Time Status Last Admin Dose Admin Doxycycline Hyclate (Vibramycin Cap) 100 mg BID PO 05/23/17 21:00 05/30/17 20:59 05/29/17 08:05 100 MG Acetaminophen (Tylenol Tab) 650 mg Q4H PRN PO 05/23/17 04:30 06/22/17 04:29 05/28/17 18:03 650 MG Nitroglycerin (Nitrostat Tab) 0.4 mg UD PRN SL 05/23/17 04:30 06/22/17 04:29 Hydromorphone HCl (Dilaudid Inj) 0.5 mg Q3H PRN IV 05/23/17 04:30 06/06/17 04:29 Tramadol HCl (Ultram Tab) not relieved ... Q6H PRN PO 05/23/17 04:30 06/22/17 04:29 Aspirin (Ecotrin Tab) 81 mg QAM PO 05/23/17 09:00 06/22/17 08:59 05/29/17 08:03 81 MG Carvedilol (Coreg Tab) 12.5 mg BID PO 05/23/17 09:00 06/22/17 08:59 05/29/17 08:03 12.5 MG Duloxetine HCl (Cymbalta Cap) 60 mg DAILY PO 05/23/17 09:00 06/22/17 08:59 05/29/17 08:03 60 MG Isosorbide Dinitrate (Isordil Tab) 20 mg TID@0700,1200,1700 PO 05/23/17 07:00 06/22/17 06:59 05/29/17 12:30 20 MG Pantoprazole Sodium (Protonix Tab) 40 mg QAM PO 05/23/17 09:00 06/22/17 08:59 05/29/17 08:04 40 MG Rosuvastatin Calcium (Crestor Tab) 40 mg HS PO 05/23/17 21:00 06/22/17 20:59 05/28/17 21:15 40 MG Prochlorperazine Edisylate 5 mg/ Syringe 5 ml @ 5 mls/min Q6H PRN IV 05/23/17 04:30 06/22/17 04:29 05/25/17 09:28 5 MLS/MIN Guaifenesin (Mucinex Contr Rel Tab) 600 mg BID PO 05/23/17 21:00 06/22/17 20:59 05/29/17 08:02 600 MG Ipratropium [place] (Atrovent 0.02% 0.5MG/2.5ML Neb) 0.5 mg Q6R INH 05/23/17 09:00 06/22/17 08:59 05/29/17 14:15 0.5 MG Levalbuterol (Xopenex 1.25MG/ 0.5ML Neb) 1.25 mg Q6R INH 05/23/17 09:00 06/22/17 08:59 05/29/17 14:15 1.25 MG Ipratropium [place] (Atrovent 0.02% 0.5MG/2.5ML Neb) 0.5 mg Q4H PRN INH 05/23/17 05:15 06/22/17 05:14 05/25/17 00:20 0.5 MG Levalbuterol (Xopenex 1.25MG/ 0.5ML Neb) 1.25 mg Q4H PRN INH 05/23/17 05:15 06/22/17 05:14 05/25/17 00:20 1.25 MG Furosemide 40 mg/ Syringe 4 ml @ 4 mls/min DAILY IV 05/23/17 09:00 06/22/17 08:59 Future Hold 05/23/17 10:34 4 MLS/MIN Miscellaneous Information (Consult Glycemic Management Pharmacy) 1 ea UD N/A 05/23/17 09:48 06/22/17 09:47 Glucose (Glucose 40% Gel) 15-30 GRAMS 15 GRAMS... UD PRN PO 05/24/17 08:30 06/23/17 08:29 Glucose (Glucose Chew Tab) 4-8 Tablets 4 Tabl... UD PRN PO 05/24/17 08:30 06/23/17 08:29 Dextrose (Dextrose 50% 50ML Syringe) 25-50ML OF 50% DW IV FOR... UD PRN IV 05/24/17 08:30 06/23/17 08:29 05/27/17 23:29 25 ML Glucagon (Glucagon Inj) 1 mg UD PRN SQ 05/24/17 08:30 06/23/17 08:29 Heparin Sodium/ Dextrose 500 ml @ 19 mls/hr Q24H PRN IV 05/24/17 13:15 06/23/17 13:14 Future hold 05/27/17 07:56 25 MLS/HR Parenteral Electrolyte Solution 1,000 ml @ 50 mls/hr Q20H IV 05/25/17 10:30 06/24/17 10:29 05/29/17 16:03 50 MLS/HR Cefepime HCl 2000 mg/Syringe 20 ml @ 5 mls/min Q24H IV 05/27/17 04:00 05/30/17 15:59 05/29/17 03:23 5 MLS/MIN Cefepime HCl (Consult) 1 ea UD PRN N/A 05/26/17 08:45 06/25/17 08:44 Amiodarone HCl (Cordarone Tab) 200 mg TIDM PO 05/27/17 11:30 06/26/17 11:29 05/29/17 11:30 200 MG Methylprednisolone Sodium Succinate 40 mg/Syringe 0.64 ml @ 1.5 mls/min Q12 IV 05/28/17 18:00 06/24/17 17:59 05/29/17 08:13 1.5 MLS/MIN Gabapentin (Neurontin Cap) 300 mg HS PO 05/28/17 21:00 06/27/17 20:59 05/28/17 21:14 300 MG Polyethylene (Miralax Powder Packet) 17 gm DAILY PO 05/29/17 09:00 06/28/17 08:59 05/29/17 09:22 17 GM Docusate Sodium (coLACE CAP) 100 mg BID PO 05/29/17 09:00 06/28/17 08:59 05/29/17 09:22 100 MG Insulin Aspart (novoLOG ASPART) SLIDING SCALE ACHS SC 05/29/17 12:00 06/28/17 11:59 05/29/17 12:31 3 UNITS Insulin Aspart (novoLOG ASPART) SLIDING SCALE TODAY@0200 ONCE SC 05/30/17 02:00 05/30/17 02:01 Insulin Glargine (Lantus Solostar Pen) see protocol text BID SC 05/29/17 21:00 06/28/17 20:59 I & O: 24-Hour Column 05/30/17 08:00 Intake Total 765 ml Output Total 700 ml Balance 65 ml Vital Signs: Date Time Temp Pulse Resp B/P (MAP) Pulse Ox O2 Delivery O2 Flow Rate FiO2 05/29/17 18:00 36.4 94 18 128/74 (92) 94 Nasal Cannula 2.0 05/29/17 18:00 96 128/74 05/29/17 17:45 115 122/84 05/29/17 17:30 111 116/95 05/29/17 17:15 109 110/79 05/29/17 17:00 100 105/84 05/29/17 16:45 111 128/79 05/29/17 16:30 113 114/76 05/29/17 16:15 100 87/75 05/29/17 16:00 Nasal Cannula 2.0 05/29/17 16:00 36.4 94 18 116/79 (91) 95 Nasal Cannula 2.0 05/29/17 16:00 101 116/79 05/29/17 15:45 98 85/54 05/29/17 15:30 104 106/69 05/29/17 15:15 36.8 102 89/72 (78) 05/29/17 14:15 87 18 93 Nasal Cannula 2.0 05/29/17 13:30 96 17 94/73 (80) 85 05/29/17 13:30 36.4 90 18 94/73 (80) 95 Nasal Cannula 2.0 05/29/17 13:00 91 19 94 05/29/17 12:00 90 8 119/81 (94) 97 05/29/17 11:25 36.4 75 18 104/85 (91) 97 Nasal Cannula 2.0 05/29/17 11:23 Nasal Cannula 2.0 05/29/17 11:17 97 14 104/85 (91) 98 05/29/17 11:00 96 17 98 05/29/17 10:11 36.4 94 111/78 (89) 05/29/17 10:01 93 16 111/78 (89) 98 05/29/17 10:00 84 105/69 05/29/17 10:00 108 19 94 05/29/17 09:42 36.4 102 20 101/64 (76) 97 Nasal Cannula 2.0 40 05/29/17 09:21 36.8 91 101/67 (78) 05/29/17 09:16 93 17 101/67 (78) 95 05/29/17 09:00 113 16 90/59 (69) 86 05/29/17 08:01 125 15 97/64 (75) 89 05/29/17 08:00 36.4 92 18 123/82 (96) 97 Nasal Cannula 2.0 40 05/29/17 08:00 Nasal Cannula 2.0 05/29/17 08:00 111 23 88 05/29/17 08:00 Nasal Cannula 05/29/17 07:03 82 18 97 Nasal Cannula 2.0 05/29/17 07:01 96 12 130/82 (98) 98 05/29/17 07:00 86 11 98 05/29/17 06:00 103 18 113/85 (94) 97 Nasal Cannula 2.0 05/29/17 04:00 99 Nasal Cannula 2.0 05/29/17 04:00 36.4 90 14 93/68 (76) 98 Nasal Cannula 2.0 05/29/17 02:00 88 16 110/83 (92) 98 Nasal Cannula 2.0 05/29/17 01:45 87 18 99 Nasal Cannula 2.0 05/29/17 00:01 36.6 87 19 111/76 (88) 100 Nasal Cannula 2.0 05/28/17 23:59 95 Nasal Cannula 2.0 05/28/17 22:01 93 13 97/73 (81) 100 05/28/17 21:01 94 17 107/72 (84) 94 05/28/17 20:03 86 16 95 Room Air 05/28/17 20:00 98 Room Air 2.0 05/28/17 20:00 36.4 80 19 97/73 (81) 93 Nasal Cannula 2.0 Laboratory Results: Last 24 Hours Test 05/28/17 19:08 05/28/17 19:42 05/28/17 20:32 05/28/17 21:31 Bedside Glucose 109 mg/dl 109 mg/dl 106 mg/dl Activated Partial Thromboplast Time 57.2 SECONDS Partial Thromboplastin Ratio 2.2 Test 05/28/17 22:36 05/28/17 23:20 05/29/17 00:25 05/29/17 01:30 Bedside Glucose 105 mg/dl 107 mg/dl 111 mg/dl 104 mg/dl Test 05/29/17 02:29 05/29/17 03:57 05/29/17 05:38 05/29/17 06:03 Bedside Glucose 102 mg/dl 111 mg/dl 121 mg/dl White Blood Count 7.67 K/uL Red Blood Count 2.83 M/uL Hemoglobin 7.7 g/dL Hematocrit 22.4 % Mean Corpuscular Volume 79.2 fL Mean Corpuscular Hemoglobin 27.2 pg Mean Corpuscular Hemoglobin Concent 34.4 g/dl RDW Standard Deviation 38.9 fL RDW Coefficient of Variation 13.4 % Platelet Count 105 K/uL Mean Platelet Volume 8.9 fL Activated Partial Thromboplast Time 54.1 SECONDS Partial Thromboplastin Ratio 2.1 Sodium Level 138 mmol/L Potassium Level 4.2 mmol/L Chloride Level 103 mmol/L Carbon Dioxide Level 25 mmol/L Anion Gap 10.0 mmol/L Blood Urea Nitrogen 96 mg/dl Creatinine 4.10 mg/dl Est Creatinine Clear Calc Drug Dose 22.2 ml/min Estimated GFR () 16.8 Estimated GFR (Non- 14.5 BUN/Creatinine Ratio 23.3 Random Glucose 114 mg/dl Calcium Level 8.1 mg/dl Test 05/29/17 11:17 05/29/17 11:50 05/29/17 15:44 Bedside Glucose 184 mg/dl 153 mg/dl White Blood Count 7.01 K/uL Red Blood Count 2.69 M/uL Hemoglobin 7.4 g/dL Hematocrit 21.4 % Mean Corpuscular Volume 79.6 fL Mean Corpuscular Hemoglobin 27.5 pg Mean Corpuscular Hemoglobin Concent 34.6 g/dl RDW Standard Deviation 39.5 fL RDW Coefficient of Variation 13.5 % Platelet Count 104 K/uL Mean Platelet Volume 9.4 fL
[2017-05-29] MEDS ORDERED: NURSING VERBAL MED ORDER ONE (19:15)
[2017-05-29] MEDS: GABAPENTIN 300 MG CAP PO SCH (20:27)
[2017-05-29] MEDS: ROSUVASTATIN CALCIUM 20 MG TAB PO SCH (20:27)
--- NOTE | 2017-05-29 20:28 | Progress Note ---
Medicine Progress Note Date & Time of Visit: May 29, 2017 at 20:26. Subjective seen resting in bed, alert, not oriented states he feels fine denies dyspnea, chest pain tolerated HD today no other symptom Objective Last 8 Hrs Date Time Temp Pulse Resp B/P (MAP) Pulse Ox O2 Delivery O2 Flow Rate FiO2 05/29/17 20:24 110 20 94 Nasal Cannula 2.0 05/29/17 18:40 36.6 103 126/87 (100) 05/29/17 18:00 36.4 94 18 128/74 (92) 94 Nasal Cannula 2.0 05/29/17 18:00 96 128/74 05/29/17 17:45 115 122/84 05/29/17 17:30 111 116/95 05/29/17 17:15 109 110/79 05/29/17 17:00 100 105/84 05/29/17 16:45 111 128/79 05/29/17 16:30 113 114/76 05/29/17 16:15 100 87/75 05/29/17 16:00 Nasal Cannula 2.0 05/29/17 16:00 36.4 94 18 116/79 (91) 95 Nasal Cannula 2.0 05/29/17 16:00 101 116/79 05/29/17 15:45 98 85/54 05/29/17 15:30 104 106/69 05/29/17 15:15 36.8 102 89/72 (78) 05/29/17 14:15 87 18 93 Nasal Cannula 2.0 05/29/17 13:30 96 17 94/73 (80) 85 05/29/17 13:30 36.4 90 18 94/73 (80) 95 Nasal Cannula 2.0 05/29/17 13:00 91 19 94 Physical Exam: General- oriented x 3, not in distress, speaks in sentences with no effort Eyes- anicteric Neck- no JVD Lungs- clear BS BL, no rales/wheezes Heart- irregular rhythm; no murmur, normal rate Abdomen- normal bowel sounds, soft, nontender Extremities- no pretibial edema, no calf tenderness; peripheral pulses intact Neuro- alert, oriented x 1;no gross focal deficits Skin- warm & dry Laboratory Results: Last 24 Hours Test 05/28/17 20:32 05/28/17 21:31 05/28/17 22:36 05/28/17 23:20 Bedside Glucose 109 mg/dl 106 mg/dl 105 mg/dl 107 mg/dl Test 05/29/17 00:25 05/29/17 01:30 05/29/17 02:29 05/29/17 03:57 Bedside Glucose 111 mg/dl 104 mg/dl 102 mg/dl 111 mg/dl Test 05/29/17 05:38 05/29/17 06:03 05/29/17 11:17 05/29/17 11:50 White Blood Count 7.67 K/uL 7.01 K/uL Red Blood Count 2.83 M/uL 2.69 M/uL Hemoglobin 7.7 g/dL 7.4 g/dL Hematocrit 22.4 % 21.4 % Mean Corpuscular Volume 79.2 fL 79.6 fL Mean Corpuscular Hemoglobin 27.2 pg 27.5 pg Mean Corpuscular Hemoglobin Concent 34.4 g/dl 34.6 g/dl RDW Standard Deviation 38.9 fL 39.5 fL RDW Coefficient of Variation 13.4 % 13.5 % Platelet Count 105 K/uL 104 K/uL Mean Platelet Volume 8.9 fL 9.4 fL Activated Partial Thromboplast Time 54.1 SECONDS Partial Thromboplastin Ratio 2.1 Sodium Level 138 mmol/L Potassium Level 4.2 mmol/L Chloride Level 103 mmol/L Carbon Dioxide Level 25 mmol/L Anion Gap 10.0 mmol/L Blood Urea Nitrogen 96 mg/dl Creatinine 4.10 mg/dl Est Creatinine Clear Calc Drug Dose 22.2 ml/min Estimated GFR () 16.8 Estimated GFR (Non- 14.5 BUN/Creatinine Ratio 23.3 Random Glucose 114 mg/dl Calcium Level 8.1 mg/dl Bedside Glucose 121 mg/dl 184 mg/dl Test 05/29/17 15:44 Bedside Glucose 153 mg/dl Assessment & Plan 62m with hx of chf ef 35-40%, CAD, DM, HTN presenting with shortness of breath. ACUTE HYPOXIC RESPIRATORY FAILURE SECONDARY TO: - remains on 2 L of NC afebrile INFLUENZA INFECTION - completed Tamiflu BILATERAL PNEUMONIA - on Cefepime + Doxy POSSIBLE ACUTE ON CHRONIC CHF EXACERBATION - s/p IV Lasix held for now due to Acute Renal Failure on CKD ACUTE RENAL FAILURE ON CKD 4 - s/p IV Lasix given intermittent IV NSS - crea increased to 4s (+) altered mental status likely from Uremia - HD session 2 today monitor Nephrology on board POSSIBLE ASTHMA EXACERBATION - possible underlying ARPIT - on Nebs Prednisone A FIB IN RVR rate controlled on Amiodarone PO, Carvedilol Heparin discontinued HHS, DM 2 a1c 9.5 transitioned to Insulin Lantus Hypertension d/c Amlodipine continue Carvedilol Nonocclusive CAD ASA Chronic anemia secondary to kidney disease Hg 7 monitor Chronic thrombocytopenia. Plt 130 to 85--> 109 monitor Dvt px scds heparin on hold as patient had cath placement Disposition pending will need PT/OT may need Rehab/SNF upon discharge Current Inpatient Medications: Current Inpatient Medications Medications (Trade) Dose Ordered Sig/Larry Route Start Time Stop Time Status Last Admin Dose Admin Doxycycline Hyclate (Vibramycin Cap) 100 mg BID PO 05/23/17 21:00 05/30/17 20:59 05/29/17 08:05 100 MG Acetaminophen (Tylenol Tab) 650 mg Q4H PRN PO 05/23/17 04:30 06/22/17 04:29 05/28/17 18:03 650 MG Nitroglycerin (Nitrostat Tab) 0.4 mg UD PRN SL 05/23/17 04:30 06/22/17 04:29 Hydromorphone HCl (Dilaudid Inj) 0.5 mg Q3H PRN IV 05/23/17 04:30 06/06/17 04:29 Tramadol HCl (Ultram Tab) not relieved ... Q6H PRN PO 05/23/17 04:30 06/22/17 04:29 Aspirin (Ecotrin Tab) 81 mg QAM PO 05/23/17 09:00 06/22/17 08:59 05/29/17 08:03 81 MG Carvedilol (Coreg Tab) 12.5 mg BID PO 05/23/17 09:00 06/22/17 08:59 05/29/17 08:03 12.5 MG Duloxetine HCl (Cymbalta Cap) 60 mg DAILY PO 05/23/17 09:00 06/22/17 08:59 05/29/17 08:03 60 MG Isosorbide Dinitrate (Isordil Tab) 20 mg TID@0700,1200,1700 PO 05/23/17 07:00 06/22/17 06:59 05/29/17 12:30 20 MG Pantoprazole Sodium (Protonix Tab) 40 mg QAM PO 05/23/17 09:00 06/22/17 08:59 05/29/17 08:04 40 MG Rosuvastatin Calcium (Crestor Tab) 40 mg HS PO 05/23/17 21:00 06/22/17 20:59 05/28/17 21:15 40 MG Prochlorperazine Edisylate 5 mg/ Syringe 5 ml @ 5 mls/min Q6H PRN IV 05/23/17 04:30 06/22/17 04:29 05/25/17 09:28 5 MLS/MIN Guaifenesin (Mucinex Contr Rel Tab) 600 mg BID PO 05/23/17 21:00 06/22/17 20:59 05/29/17 08:02 600 MG Ipratropium [place] (Atrovent 0.02% 0.5MG/2.5ML Neb) 0.5 mg Q6R INH 05/23/17 09:00 06/22/17 08:59 05/29/17 20:24 0.5 MG Levalbuterol (Xopenex 1.25MG/ 0.5ML Neb) 1.25 mg Q6R INH 05/23/17 09:00 06/22/17 08:59 05/29/17 20:24 1.25 MG Ipratropium [place] (Atrovent 0.02% 0.5MG/2.5ML Neb) 0.5 mg Q4H PRN INH 05/23/17 05:15 06/22/17 05:14 05/25/17 00:20 0.5 MG Levalbuterol (Xopenex 1.25MG/ 0.5ML Neb) 1.25 mg Q4H PRN INH 05/23/17 05:15 06/22/17 05:14 05/25/17 00:20 1.25 MG Furosemide 40 mg/ Syringe 4 ml @ 4 mls/min DAILY IV 05/23/17 09:00 06/22/17 08:59 Future Hold 05/23/17 10:34 4 MLS/MIN Miscellaneous Information (Consult Glycemic Management Pharmacy) 1 ea UD N/A 2/3/18 09:48 06/22/17 09:47 Glucose (Glucose 40% Gel) 15-30 GRAMS 15 GRAMS... UD PRN PO 05/24/17 08:30 06/23/17 08:29 Glucose (Glucose Chew Tab) 4-8 Tablets 4 Tabl... UD PRN PO 05/24/17 08:30 06/23/17 08:29 Dextrose (Dextrose 50% 50ML Syringe) 25-50ML OF 50% DW IV FOR... UD PRN IV 05/24/17 08:30 06/23/17 08:29 05/27/17 23:29 25 ML Glucagon (Glucagon Inj) 1 mg UD PRN SQ 05/24/17 08:30 06/23/17 08:29 Heparin Sodium/ Dextrose 500 ml @ 19 mls/hr Q24H PRN IV 05/24/17 13:15 06/23/17 13:14 Future hold 05/27/17 07:56 25 MLS/HR Parenteral Electrolyte Solution 1,000 ml @ 50 mls/hr Q20H IV 05/25/17 10:30 06/24/17 10:29 05/29/17 16:03 50 MLS/HR Cefepime HCl 2000 mg/Syringe 20 ml @ 5 mls/min Q24H IV 05/27/17 04:00 05/30/17 15:59 05/29/17 03:23 5 MLS/MIN Cefepime HCl (Consult) 1 ea UD PRN N/A 05/26/17 08:45 06/25/17 08:44 Amiodarone HCl (Cordarone Tab) 200 mg TIDM PO 05/27/17 11:30 06/26/17 11:29 05/29/17 11:30 200 MG Gabapentin (Neurontin Cap) 300 mg HS PO 05/28/17 21:00 06/27/17 20:59 05/28/17 21:14 300 MG Polyethylene (Miralax Powder Packet) 17 gm DAILY PO 05/29/17 09:00 06/28/17 08:59 05/29/17 09:22 17 GM Docusate Sodium (coLACE CAP) 100 mg BID PO 05/29/17 09:00 06/28/17 08:59 05/29/17 09:22 100 MG Insulin Aspart (novoLOG ASPART) SLIDING SCALE ACHS SC 05/29/17 12:00 06/28/17 11:59 05/29/17 12:31 3 UNITS Insulin Aspart (novoLOG ASPART) SLIDING SCALE TODAY@0200 ONCE SC 05/30/17 02:00 05/30/17 02:01 Insulin Glargine (Lantus Solostar Pen) see protocol text BID SC 05/29/17 21:00 06/28/17 20:59 Prednisone (PredniSONE TAB) 40 mg QD PO 05/30/17 10:00 06/29/17 09:59
[2017-05-30] VITALS (42 sets, daily range): BP systolic 89–137; BP diastolic 58–94; PULSE 82–109; TEMP 36.4–37.1; O2SAT 92–100
[2017-05-30] MEDS ORDERED: INSULIN ASPART 100 UNITS/ML 3 ML PEN SC ONE (02:00)
[2017-05-30] MEDS: HEPARIN 25,000 UNIT/500ML D5W 500 ML IV PRN ×3 (02:01→18:30)
[2017-05-30] MEDS: LEVALBUTEROL 1.25MG/0.5ML NEB INH SCH ×4 (02:05→18:07)
[2017-05-30] MEDS: IPRATROPIUM BROMIDE NEB SOLN 0.02% 2.5 ML VIAL INH SCH ×4 (02:05→18:07)
[2017-05-30] MEDS: CEFEPIME IV 2,000 MG in SYRINGE 7.5 ML IV SCH (03:59)
[2017-05-30 05:46] LABS: CREATININE 3.09 mg/dl (0.60-1.40); POTASSIUM 4.4 mmol/L (3.5-5.1)
[2017-05-30 05:47] LABS: PHOSPHORUS 4.1 mg/dl (2.5-4.9)
[2017-05-30 05:49] LABS: HEMATOCRIT 20.7 % (42-52); MEAN CELL VOLUME 80.5 fL (80-100); MEAN CORPUSCULAR HEMOGLOBIN 27.2 pg (25-34); MEAN CORPUSCULAR HGB CONC 33.8 g/dl (32-36); MEAN PLATELET VOLUME 9.5 fL (7.4-10.4); PLATELET COUNT 127 K/uL (130-400); RED CELL DISTRIBUTION WIDTH CV 13.8 % (11.5-14.5); RED CELL DISTRIBUTION WIDTH SD 40.8 fL (36.4-46.3)
[2017-05-30 05:51] LABS: BASO % 0.1 %; BASO ABS # 0.01 K/uL (0-0.2); IG# 0.04 K/uL (0.00-0.02); LYMPH % 12.1 %; LYMPH ABS # 0.97 K/uL (1.2-3.4); MONO % 7.4 %; MONO ABS # 0.59 K/uL (0.11-0.59); NEUT % 79.9 %; NEUT ABS # 6.39 K/uL (1.4-6.5)
[2017-05-30] MEDS ORDERED: HEPARIN IV BOLUS 7,000 UNIT in SYRINGE 0 ML IV ONE (06:30)
[2017-05-30] MEDS: ISOSORBIDE DINITRATE 20 MG TAB PO SCH (06:35)
[2017-05-30] MEDS: DOCUSATE SODIUM 100 MG CAP PO SCH ×2 (07:49→20:23)
[2017-05-30] MEDS: DULOXETINE HCL 60 MG CAP PO SCH (07:49)
[2017-05-30] MEDS: GUAIFENESIN 600 MG TABCR PO SCH ×2 (07:49→20:23)
[2017-05-30] MEDS: PANTOprazole SOD 40 MG TAB PO SCH (07:50)
[2017-05-30] MEDS: ASPIRIN 81 MG ECTAB PO SCH (07:50)
[2017-05-30] MEDS: AMIODARONE 200 MG TAB PO SCH ×3 (07:50→17:39)
[2017-05-30] MEDS: DOXYCYCLINE HYCLATE 100 MG CAP PO SCH (07:50)
[2017-05-30] MEDS: POLYETHYLENE (MIRALAX) 17 GM PACK PO SCH (07:51)
[2017-05-30] MEDS: INSULIN ASPART 100 UNITS/ML 3 ML PEN SC SCH ×4 (07:53→20:25)
[2017-05-30] MEDS: INSULIN GLARGINE SOLOSTAR 100 UNITS/ML 3 ML PEN SC SCH ×2 (07:53→20:24)
[2017-05-30] MEDS: NORMOSOL R 1,000 ML IV SCH (11:30)
[2017-05-30] MEDS: CARVEDILOL 12.5 MG TAB PO SCH ×2 (14:20→20:23)
[2017-05-30 15:26] LABS: HEMATOCRIT 22.7 % (42-52); HEMOGLOBIN 7.5 g/dL (14.0-18.0); MEAN CELL VOLUME 81.4 fL (80-100); MEAN CORPUSCULAR HEMOGLOBIN 26.9 pg (25-34); MEAN PLATELET VOLUME 9.1 fL (7.4-10.4); NUCLEATED RED BLOOD CELL ABS 0.03 K/uL (0-0); PLATELET COUNT 136 K/uL (130-400); RED CELL DISTRIBUTION WIDTH CV 13.6 % (11.5-14.5); RED CELL DISTRIBUTION WIDTH SD 40.6 fL (36.4-46.3); WHITE BLOOD COUNT 9.17 K/uL (4.8-10.8)
[2017-05-30 15:59] LABS: PTT PATIENT 186.5 SECONDS (21.0-31.0)
--- NOTE | 2017-05-30 16:24 | Cardiology Follow-Up ---
Subjective General Date of Service: May 30, 2017. Chief Complaint: follow up shortness of breath Pt evaluation today including: conversation w/ patient, physical exam, chart review, lab review, review of studies, review of inpatient medication list History of Present Illness The patient is a 62 year old male seen in follow up. Denies CP or SOB. Heparin restarted. AF with borderline rate control on telemetry. Allergies Coded Allergies: No Known Allergies (Verified , 05/23/17) Social History Smoking Status: Never Smoker Hx Tobacco Use In Past Year?: No Hx Alcohol Use - Type And Amou: No Hx Substance Use - Type And Am: No Problem List Medical Problems: (1) CHF (congestive heart failure) Status: Acute (2) CHF (congestive heart failure) Status: Acute (3) Diffuse abdominal pain Status: Acute (4) Elevated troponin Status: Acute (5) Precordial chest pain Status: Acute (6) Renal cyst Status: Acute (7) Shortness of breath Status: Acute (8) Shortness of breath Status: Acute Review of Systems Respiratory: + cough, + sputum, + shortness of breath, + dyspnea on exertion, No wheezing, No dyspnea at rest, No hemoptysis Cardiac: No chest pain, No orthopnea, No PND, No edema, No claudication, No palpitations Physical Exam Vital Signs Last Vital Signs Documentation Date Time Temp Pulse Resp B/P (MAP) Pulse Ox O2 Delivery O2 Flow Rate FiO2 05/30/17 16:07 36.6 05/30/17 16:01 98 19 113/76 (81) 96 05/30/17 16:00 Nasal Cannula 2.0 05/29/17 09:42 40 Physical Exam Constitutional: Level of Distress: NAD, acutely ill Head: normocephalic ENMT: TMs normal Neck: supple, trachea midline Lungs: Auscultation: pertinent finding (coarse breath sounds B/L, No wheeze) Cardiovascular: Heart Auscultation: irregular rate rhythm, pertinent finding (04/25 SM) Abdomen: Inspection & Palpation: soft, non-distended Extremities: no edema Neurologic: Gait & Station: pertinent finding (confuse, tremor) Assessment and Plan Assessment and Plan Impression: 1. Acute influenza A 2. Systolic heart failure, history of left bundle branch block, nonischemic cardiomyopathy, LVEF 30-40% March 2017 -patient appears compensated today with mild volume depletion 3. Acute kidney injury (nonoliguric) on stage III chronic kidney disease, 4. Atrial fibrillation with borderline rate control - new onset - IV heparin restarted 5. Encephalopathy / delirium, perhaps due to uremia. Also could be from Tamiflu - mental status improving 6. Anemia - Hgb stable at 7.5gm/dL today Plan: Continue oral amiodarone. Continue IV heparin. Hold oral anticoagulation until need for further invasive procedures is clear. Agree with gentle IVF. Hemodialysis as per nephrology. Supportive care as per Food Service Manager. Laboratory Results Last 24 Hours Test 05/29/17 20:21 05/30/17 01:56 05/30/17 04:30 05/30/17 06:37 Bedside Glucose 219 mg/dl 157 mg/dl 147 mg/dl White Blood Count 8.00 K/uL Red Blood Count 2.57 M/uL Hemoglobin 7.0 g/dL Hematocrit 20.7 % Mean Corpuscular Volume 80.5 fL Mean Corpuscular Hemoglobin 27.2 pg Mean Corpuscular Hemoglobin Concent 33.8 g/dl Platelet Count 127 K/uL Mean Platelet Volume 9.5 fL Neutrophils (%) (Auto) 79.9 % Lymphocytes (%) (Auto) 12.1 % Monocytes (%) (Auto) 7.4 % Eosinophils (%) (Auto) 0.0 % Basophils (%) (Auto) 0.1 % Neutrophils # (Auto) 6.39 K/uL Lymphocytes # (Auto) 0.97 K/uL Monocytes # (Auto) 0.59 K/uL Eosinophils # (Auto) 0.00 K/uL Basophils # (Auto) 0.01 K/uL RDW Standard Deviation 40.8 fL RDW Coefficient of Variation 13.8 % Immature Granulocyte % (Auto) 0.5 % Immature Granulocyte # (Auto) 0.04 K/uL Red Blood Cell Morphology Unremarkable Activated Partial Thromboplast Time 39.0 SECONDS Partial Thromboplastin Ratio 1.5 Sodium Level 137 mmol/L Potassium Level 4.4 mmol/L Chloride Level 104 mmol/L Carbon Dioxide Level 27 mmol/L Anion Gap 6.0 mmol/L Blood Urea Nitrogen 67 mg/dl Creatinine 3.09 mg/dl Est Creatinine Clear Calc Drug Dose 29.5 ml/min Estimated GFR () 23.6 Estimated GFR (Non- 20.4 BUN/Creatinine Ratio 21.8 Random Glucose 144 mg/dl Calcium Level 8.0 mg/dl Phosphorus Level 4.1 mg/dl Magnesium Level 2.5 mg/dl Test 05/30/17 11:15 05/30/17 15:18 Bedside Glucose 120 mg/dl White Blood Count 9.17 K/uL Red Blood Count 2.79 M/uL Hemoglobin 7.5 g/dL Hematocrit 22.7 % Mean Corpuscular Volume 81.4 fL Mean Corpuscular Hemoglobin 26.9 pg Mean Corpuscular Hemoglobin Concent 33.0 g/dl RDW Standard Deviation 40.6 fL RDW Coefficient of Variation 13.6 % Platelet Count 136 K/uL Mean Platelet Volume 9.1 fL Nucleated RBC Absolute Count (auto) 0.03 K/uL Nucleated Red Blood Cells % 0.4 % Activated Partial Thromboplast Time 186.5 SECONDS Partial Thromboplastin Ratio 7.2
[2017-05-30 17:30] LABS: PTT PATIENT 95.5 SECONDS (21.0-31.0)
--- NOTE | 2017-05-30 18:53 | Nephrology Progress Note ---
Nephrology Progress Note Date of Service: May 30, 2017. Subjective MS clearing after 3rd HD treatment; remains w/ poor appetite; hgb trending down and some supratherapeutic PTT later in day; groin line worked well Objective Date Time Temp Pulse Resp B/P (MAP) Pulse Ox O2 Delivery O2 Flow Rate FiO2 05/30/17 16:22 36.6 89 126/88 (101) 05/30/17 16:07 36.6 05/30/17 16:01 98 19 113/76 (81) 96 05/30/17 16:00 Nasal Cannula 2.0 05/30/17 14:28 100 16 98 Nasal Cannula 2.0 05/30/17 13:50 90 19 126/88 (100) 96 05/30/17 13:46 92 19 107/83 (87) 100 05/30/17 13:31 90 16 110/73 (81) 98 05/30/17 13:30 92 110/73 05/30/17 13:16 95 22 129/74 (86) 100 05/30/17 13:15 98 129/74 05/30/17 13:01 95 21 115/82 (87) 96 05/30/17 13:00 95 115/82 05/30/17 12:45 97 121/78 05/30/17 12:30 90 102/70 05/30/17 12:15 94 102/77 05/30/17 12:01 92 20 106/71 (81) 97 05/30/17 12:00 93 106/71 05/30/17 12:00 Nasal Cannula 2.0 05/30/17 11:45 97 122/70 05/30/17 11:30 92 93/70 05/30/17 11:15 94 103/72 05/30/17 11:00 89 129/74 05/30/17 10:45 83 123/79 05/30/17 10:45 92 20 123/79 (88) 99 05/30/17 10:33 92 19 101/75 (87) 97 05/30/17 10:32 36.6 85 101/75 (84) 05/30/17 08:02 93 20 113/81 (99) 96 05/30/17 08:00 36.9 05/30/17 08:00 Nasal Cannula 2.0 05/30/17 07:06 104 18 97 Nasal Cannula 2.0 05/30/17 07:00 95 19 117/72 (90) 97 05/30/17 06:01 92 12 89/58 (62) 98 05/30/17 05:01 91 10 123/84 (96) 96 05/30/17 04:00 90 19 120/94 (105) 95 05/30/17 04:00 36.4 05/30/17 04:00 96 Nasal Cannula 2.0 05/30/17 03:01 106 18 118/85 (91) 95 05/30/17 02:05 90 18 97 Nasal Cannula 2.0 05/30/17 02:00 100 19 108/83 (88) 97 05/30/17 01:01 100 20 107/81 (85) 98 05/30/17 00:01 103 17 114/80 (87) 94 05/29/17 23:59 36.8 05/29/17 23:59 95 Nasal Cannula 2.0 05/29/17 23:00 99 20 125/82 (87) 98 05/29/17 22:01 129 28 111/84 (88) 95 05/29/17 21:05 103 23 117/65 (70) 99 05/29/17 20:31 111 16 119/60 (77) 93 05/29/17 20:24 110 20 94 Nasal Cannula 2.0 05/29/17 20:16 117 21 129/65 (83) 95 05/29/17 20:00 99 Nasal Cannula 2.0 05/29/17 20:00 98 18 140/75 (88) 97 05/29/17 20:00 36.5 05/29/17 19:46 115 17 120/73 (96) 92 05/29/17 19:31 112 22 104/85 (93) 95 05/29/17 19:16 109 19 131/92 (112) 94 05/29/17 19:01 104 20 126/84 (107) 93 05/29/17 18:40 36.6 103 126/87 (100) 05/29/17 18:00 36.4 94 18 128/74 (92) 94 Nasal Cannula 2.0 05/29/17 18:00 96 128/74 05/29/17 17:45 115 122/84 05/29/17 17:30 111 116/95 05/29/17 17:15 109 110/79 Physical Exam: General-alert interactive, appropriate on mask Eyes-no scleral icterus ENT-mmm Neck-supple Lungs-clear w/ diminished air entry Heart-irregularly irregular in 100s Abdomen-bs+ s/nt/nd; cuadra w/ ample urine Extremities-no c/c/e Neuro-no mariah tremors Current Inpatient Medications Medications (Trade) Dose Ordered Sig/Larry Route Start Time Stop Time Status Last Admin Dose Admin Doxycycline Hyclate (Vibramycin Cap) 100 mg BID PO 05/23/17 21:00 05/30/17 20:59 05/30/17 07:50 100 MG Acetaminophen (Tylenol Tab) 650 mg Q4H PRN PO 05/23/17 04:30 06/22/17 04:29 05/28/17 18:03 650 MG Nitroglycerin (Nitrostat Tab) 0.4 mg UD PRN SL 05/23/17 04:30 06/22/17 04:29 Hydromorphone HCl (Dilaudid Inj) 0.5 mg Q3H PRN IV 05/23/17 04:30 06/06/17 04:29 Tramadol HCl (Ultram Tab) not relieved ... Q6H PRN PO 05/23/17 04:30 06/22/17 04:29 Aspirin (Ecotrin Tab) 81 mg QAM PO 05/23/17 09:00 06/22/17 08:59 05/30/17 07:50 81 MG Carvedilol (Coreg Tab) 12.5 mg BID PO 05/23/17 09:00 06/22/17 08:59 05/30/17 14:20 12.5 MG Duloxetine HCl (Cymbalta Cap) 60 mg DAILY PO 05/23/17 09:00 06/22/17 08:59 05/30/17 07:49 60 MG Pantoprazole Sodium (Protonix Tab) 40 mg QAM PO 05/23/17 09:00 06/22/17 08:59 05/30/17 07:50 40 MG Rosuvastatin Calcium (Crestor Tab) 40 mg HS PO 05/23/17 21:00 06/22/17 20:59 05/29/17 20:27 40 MG Prochlorperazine Edisylate 5 mg/ Syringe 5 ml @ 5 mls/min Q6H PRN IV 05/23/17 04:30 06/22/17 04:29 05/25/17 09:28 5 MLS/MIN Guaifenesin (Mucinex Contr Rel Tab) 600 mg BID PO 05/23/17 21:00 06/22/17 20:59 05/30/17 07:49 600 MG Ipratropium [place] (Atrovent 0.02% 0.5MG/2.5ML Neb) 0.5 mg Q6R INH 05/23/17 09:00 06/22/17 08:59 05/30/17 14:26 0.5 MG Levalbuterol (Xopenex 1.25MG/ 0.5ML Neb) 1.25 mg Q6R INH 05/23/17 09:00 06/22/17 08:59 05/30/17 14:26 1.25 MG Ipratropium [place] (Atrovent 0.02% 0.5MG/2.5ML Neb) 0.5 mg Q4H PRN INH 05/23/17 05:15 06/22/17 05:14 05/25/17 00:20 0.5 MG Levalbuterol (Xopenex 1.25MG/ 0.5ML Neb) 1.25 mg Q4H PRN INH 05/23/17 05:15 06/22/17 05:14 05/25/17 00:20 1.25 MG Furosemide 40 mg/ Syringe 4 ml @ 4 mls/min DAILY IV 05/23/17 09:00 06/22/17 08:59 Future Hold 05/23/17 10:34 4 MLS/MIN Miscellaneous Information (Consult Glycemic Management Pharmacy) 1 ea UD N/A 05/23/17 09:48 06/22/17 09:47 Glucose (Glucose 40% Gel) 15-30 GRAMS 15 GRAMS... UD PRN PO 05/24/17 08:30 06/23/17 08:29 Glucose (Glucose Chew Tab) 4-8 Tablets 4 Tabl... UD PRN PO 05/24/17 08:30 06/23/17 08:29 Dextrose (Dextrose 50% 50ML Syringe) 25-50ML OF 50% DW IV FOR... UD PRN IV 05/24/17 08:30 06/23/17 08:29 05/27/17 23:29 25 ML Glucagon (Glucagon Inj) 1 mg UD PRN SQ 05/24/17 08:30 06/23/17 08:29 Heparin Sodium/ Dextrose 500 ml @ 26 mls/hr [id number] PRN IV 05/24/17 13:15 06/23/17 13:14 Future hold 05/30/17 06:32 26 MLS/HR Parenteral Electrolyte Solution 1,000 ml @ 50 mls/hr Q20H IV 05/25/17 10:30 06/24/17 10:29 05/30/17 11:30 50 MLS/HR Cefepime HCl (Consult) 1 ea UD PRN N/A 05/26/17 08:45 06/25/17 08:44 Amiodarone HCl (Cordarone Tab) 200 mg TIDM PO 05/27/17 11:30 06/26/17 11:29 05/30/17 12:59 200 MG Gabapentin (Neurontin Cap) 300 mg HS PO 05/28/17 21:00 06/27/17 20:59 05/29/17 20:27 300 MG Polyethylene (Miralax Powder Packet) 17 gm DAILY PO 05/29/17 09:00 06/28/17 08:59 05/30/17 07:51 17 GM Docusate Sodium (coLACE CAP) 100 mg BID PO 05/29/17 09:00 06/28/17 08:59 05/30/17 07:49 100 MG Insulin Aspart (novoLOG ASPART) SLIDING SCALE ACHS SC 05/29/17 12:00 06/28/17 11:59 05/30/17 07:53 5 UNITS Insulin Glargine (Lantus Solostar Pen) see protocol text BID SC 05/29/17 21:00 06/28/17 20:59 05/30/17 07:53 20 UNITS Prednisone (PredniSONE TAB) 40 mg QD PO 05/30/17 10:00 06/29/17 09:59 05/30/17 14:20 40 MG Last 24 Hours Test 05/29/17 20:21 05/30/17 01:56 05/30/17 04:30 05/30/17 06:37 Bedside Glucose 219 mg/dl 157 mg/dl 147 mg/dl White Blood Count 8.00 K/uL Red Blood Count 2.57 M/uL Hemoglobin 7.0 g/dL Hematocrit 20.7 % Mean Corpuscular Volume 80.5 fL Mean Corpuscular Hemoglobin 27.2 pg Mean Corpuscular Hemoglobin Concent 33.8 g/dl Platelet Count 127 K/uL Mean Platelet Volume 9.5 fL Neutrophils (%) (Auto) 79.9 % Lymphocytes (%) (Auto) 12.1 % Monocytes (%) (Auto) 7.4 % Eosinophils (%) (Auto) 0.0 % Basophils (%) (Auto) 0.1 % Neutrophils # (Auto) 6.39 K/uL Lymphocytes # (Auto) 0.97 K/uL Monocytes # (Auto) 0.59 K/uL Eosinophils # (Auto) 0.00 K/uL Basophils # (Auto) 0.01 K/uL RDW Standard Deviation 40.8 fL RDW Coefficient of Variation 13.8 % Immature Granulocyte % (Auto) 0.5 % Immature Granulocyte # (Auto) 0.04 K/uL Red Blood Cell Morphology Unremarkable Activated Partial Thromboplast Time 39.0 SECONDS Partial Thromboplastin Ratio 1.5 Sodium Level 137 mmol/L Potassium Level 4.4 mmol/L Chloride Level 104 mmol/L Carbon Dioxide Level 27 mmol/L Anion Gap 6.0 mmol/L Blood Urea Nitrogen 67 mg/dl Creatinine 3.09 mg/dl Est Creatinine Clear Calc Drug Dose 29.5 ml/min Estimated GFR () 23.6 Estimated GFR (Non- 20.4 BUN/Creatinine Ratio 21.8 Random Glucose 144 mg/dl Calcium Level 8.0 mg/dl Phosphorus Level 4.1 mg/dl Magnesium Level 2.5 mg/dl Test 05/30/17 11:15 05/30/17 15:18 05/30/17 16:49 Bedside Glucose 120 mg/dl White Blood Count 9.17 K/uL Red Blood Count 2.79 M/uL Hemoglobin 7.5 g/dL Hematocrit 22.7 % Mean Corpuscular Volume 81.4 fL Mean Corpuscular Hemoglobin 26.9 pg Mean Corpuscular Hemoglobin Concent 33.0 g/dl RDW Standard Deviation 40.6 fL RDW Coefficient of Variation 13.6 % Platelet Count 136 K/uL Mean Platelet Volume 9.1 fL Nucleated RBC Absolute Count (auto) 0.03 K/uL Nucleated Red Blood Cells % 0.4 % Activated Partial Thromboplast Time 186.5 SECONDS Partial Thromboplastin Ratio 7.2 Date/Time Source Procedure Growth Status 05/30/17 15:00 Sputum Expectorated Sputum Gram Stain Pending Received 05/30/17 15:00 Sputum Expectorated Sputum Sputum Culture Pending Received Assessment & Plan 62 yo male with flu/afib rate controlled with atn who started acute dialysis 05/28 to help improve tremors and confusion. urinating well and tolerating iv fluids well. tremors are better today as is confusion. [id number]-Ops-oliguric on CKD 4- urinating well-confusion and tremors improved. initiated diaysis 05/28. catheter ran well today. today is 3rd day of gentle HD for clearance; then see if mental status improving. continue to look for other possible causes for confusion. not yet clear clinically whether this is start to snf dialysis and would hold off on starting coumadin until this is established, likeliest early next week.
--- NOTE | 2017-05-30 19:00 | Critical Care Progress Note ---
Critical Care Progress Note Date of Service May 30, 2017. Attending Dr. Eric Subjective Less twitching today S/p HD today, catheter functioning well Objective General Appearance: comfortable. Head: small excoriation over the lateral aspect of left eyebrow. Eyes: PERRLA Neck: trachea midline, no stridor, supple Respiratory: No wheezing Cardiovascular: irregular rate Abdomen: non tender, no rebound. Back: normal inspection. Extremities: no edema, dry skin. Left hip normal in appearance, no ecchymosis, no hematoma Neuro: alert, oriented x 3, occasional twitching Assessment & Plan 62 year old male with h/o CHF, asthma, diabetic, presents with shortness of breath, positive for influenza A. Was treated for intrinsic lung disease secondary to asthma exacerbation and flu rather than fluid overload. Was hydrated and improved Has PAM on CKD, now on HD Anemia Plan: Continue gentle hydration. Oseltamivir course completed Also on antibiotic coverage as there is some focality on CXR. On cefepime and doxycycline, complete course Continue bronchodilators Continue po. Tolerating nasal cannula Monitor mental status, hopefully it will continue to improve with hemodialysis Monitor renal indices, urine output. HD again today. HD catheter changed yesterday Continue on IV fluids. PO amiodarone Continue heparin drip today (held for 4 hours for the HD catheter insertion) Coreg 12.5 mg bid Monitor CBC every 6 hours. No need for transfusions for now No evidence of bleeding yet. If he continues to drop the H/H obtain CT abdomen, r/o RP bleed. Both thighs look soft, equal in size, non-tender groins, no ecchymosis on flanks Start Procrit Glycemic control per pharmacy. On Lantus Critical care time spent with the patient, reviewing chart, discussing with consultants, greater than 25 minutes Requires ICU monitoring as he is still in respiratory failure, significant toxic -metabolic encephalopathy, PAM, may require intubation, on hemodialysis, requires very close monitoring. Consults & Procedures Consultants: Cardiology: Dr Sethi Renal: Dr Manley Procedures: 05/28/17 - right femoral HD catheter Data Medications: Current Inpatient Medications Medications (Trade) Dose Ordered Sig/Larry Route Start Time Stop Time Status Last Admin Dose Admin Doxycycline Hyclate (Vibramycin Cap) 100 mg BID PO 05/23/17 21:00 05/30/17 20:59 05/30/17 07:50 100 MG Acetaminophen (Tylenol Tab) 650 mg Q4H PRN PO 05/23/17 04:30 06/22/17 04:29 05/28/17 18:03 650 MG Nitroglycerin (Nitrostat Tab) 0.4 mg UD PRN SL 05/23/17 04:30 06/22/17 04:29 Hydromorphone HCl (Dilaudid Inj) 0.5 mg Q3H PRN IV 05/23/17 04:30 06/06/17 04:29 Tramadol HCl (Ultram Tab) not relieved ... Q6H PRN PO 05/23/17 04:30 06/22/17 04:29 Aspirin (Ecotrin Tab) 81 mg QAM PO 05/23/17 09:00 06/22/17 08:59 05/30/17 07:50 81 MG Carvedilol (Coreg Tab) 12.5 mg BID PO 05/23/17 09:00 06/22/17 08:59 05/30/17 14:20 12.5 MG Duloxetine HCl (Cymbalta Cap) 60 mg DAILY PO 05/23/17 09:00 06/22/17 08:59 05/30/17 07:49 60 MG Pantoprazole Sodium (Protonix Tab) 40 mg QAM PO 05/23/17 09:00 06/22/17 08:59 05/30/17 07:50 40 MG Rosuvastatin Calcium (Crestor Tab) 40 mg HS PO 05/23/17 21:00 06/22/17 20:59 05/29/17 20:27 40 MG Prochlorperazine Edisylate 5 mg/ Syringe 5 ml @ 5 mls/min Q6H PRN IV 05/23/17 04:30 06/22/17 04:29 05/25/17 09:28 5 MLS/MIN Guaifenesin (Mucinex Contr Rel Tab) 600 mg BID PO 05/23/17 21:00 06/22/17 20:59 05/30/17 07:49 600 MG Ipratropium [place] (Atrovent 0.02% 0.5MG/2.5ML Neb) 0.5 mg Q6R INH 05/23/17 09:00 06/22/17 08:59 05/30/17 18:07 0.5 MG Levalbuterol (Xopenex 1.25MG/ 0.5ML Neb) 1.25 mg Q6R INH 05/23/17 09:00 06/22/17 08:59 05/30/17 18:07 1.25 MG Ipratropium [place] (Atrovent 0.02% 0.5MG/2.5ML Neb) 0.5 mg Q4H PRN INH 05/23/17 05:15 06/22/17 05:14 05/25/17 00:20 0.5 MG Levalbuterol (Xopenex 1.25MG/ 0.5ML Neb) 1.25 mg Q4H PRN INH 05/23/17 05:15 06/22/17 05:14 05/25/17 00:20 1.25 MG Furosemide 40 mg/ Syringe 4 ml @ 4 mls/min DAILY IV 05/23/17 09:00 06/22/17 08:59 Future Hold 05/23/17 10:34 4 MLS/MIN Miscellaneous Information (Consult Glycemic Management Pharmacy) 1 ea UD N/A 05/23/17 09:48 06/22/17 09:47 Glucose (Glucose 40% Gel) 15-30 GRAMS 15 GRAMS... UD PRN PO 05/24/17 08:30 06/23/17 08:29 Glucose (Glucose Chew Tab) 4-8 Tablets 4 Tabl... UD PRN PO 05/24/17 08:30 06/23/17 08:29 Dextrose (Dextrose 50% 50ML Syringe) 25-50ML OF 50% DW IV FOR... UD PRN IV 05/24/17 08:30 06/23/17 08:29 05/27/17 23:29 25 ML Glucagon (Glucagon Inj) 1 mg UD PRN SQ 05/24/17 08:30 06/23/17 08:29 Heparin Sodium/ Dextrose 500 ml @ 21 mls/hr [id number] PRN IV 05/24/17 13:15 06/23/17 13:14 Future hold 05/30/17 18:30 21 MLS/HR Parenteral Electrolyte Solution 1,000 ml @ 50 mls/hr Q20H IV 05/25/17 10:30 06/24/17 10:29 05/30/17 11:30 50 MLS/HR Cefepime HCl (Consult) 1 ea UD PRN N/A 05/26/17 08:45 06/25/17 08:44 Amiodarone HCl (Cordarone Tab) 200 mg TIDM PO 05/27/17 11:30 06/26/17 11:29 05/30/17 17:39 200 MG Gabapentin (Neurontin Cap) 300 mg HS PO 05/28/17 21:00 06/27/17 20:59 05/29/17 20:27 300 MG Polyethylene (Miralax Powder Packet) 17 gm DAILY PO 05/29/17 09:00 06/28/17 08:59 05/30/17 07:51 17 GM Docusate Sodium (coLACE CAP) 100 mg BID PO 05/29/17 09:00 06/28/17 08:59 05/30/17 07:49 100 MG Insulin Aspart (novoLOG ASPART) SLIDING SCALE ACHS SC 05/29/17 12:00 06/28/17 11:59 05/30/17 07:53 5 UNITS Insulin Glargine (Lantus Solostar Pen) see protocol text BID SC 05/29/17 21:00 06/28/17 20:59 05/30/17 07:53 20 UNITS Prednisone (PredniSONE TAB) 40 mg QD PO 05/30/17 10:00 06/29/17 09:59 05/30/17 14:20 40 MG I & O: 24-Hour Column 05/31/17 07:59 Intake Total 768 ml Output Total 250 ml Balance 518 ml Vital Signs: Date Time Temp Pulse Resp B/P (MAP) Pulse Ox O2 Delivery O2 Flow Rate FiO2 05/30/17 18:16 109 22 120/79 (80) 96 05/30/17 18:07 82 16 92 Room Air 05/30/17 16:22 36.6 89 126/88 (101) 05/30/17 16:07 36.6 05/30/17 16:01 98 19 113/76 (81) 96 05/30/17 16:00 Nasal Cannula 2.0 05/30/17 14:28 100 16 98 Nasal Cannula 2.0 05/30/17 13:50 90 19 126/88 (100) 96 05/30/17 13:46 92 19 107/83 (87) 100 05/30/17 13:31 90 16 110/73 (81) 98 05/30/17 13:30 92 110/73 05/30/17 13:16 95 22 129/74 (86) 100 05/30/17 13:15 98 129/74 05/30/17 13:01 95 21 115/82 (87) 96 05/30/17 13:00 95 115/82 05/30/17 12:45 97 121/78 05/30/17 12:30 90 102/70 05/30/17 12:15 94 102/77 05/30/17 12:01 92 20 106/71 (81) 97 05/30/17 12:00 93 106/71 05/30/17 12:00 Nasal Cannula 2.0 05/30/17 11:45 97 122/70 05/30/17 11:30 92 93/70 05/30/17 11:15 94 103/72 05/30/17 11:00 89 129/74 05/30/17 10:45 83 123/79 05/30/17 10:45 92 20 123/79 (88) 99 05/30/17 10:33 92 19 101/75 (87) 97 05/30/17 10:32 36.6 85 101/75 (84) 05/30/17 08:02 93 20 113/81 (99) 96 05/30/17 08:00 36.9 05/30/17 08:00 Nasal Cannula 2.0 05/30/17 07:06 104 18 97 Nasal Cannula 2.0 05/30/17 07:00 95 19 117/72 (90) 97 05/30/17 06:01 92 12 89/58 (62) 98 05/30/17 05:01 91 10 123/84 (96) 96 05/30/17 04:00 90 19 120/94 (105) 95 05/30/17 04:00 36.4 05/30/17 04:00 96 Nasal Cannula 2.0 05/30/17 03:01 106 18 118/85 (91) 95 05/30/17 02:05 90 18 97 Nasal Cannula 2.0 05/30/17 02:00 100 19 108/83 (88) 97 05/30/17 01:01 100 20 107/81 (85) 98 05/30/17 00:01 103 17 114/80 (87) 94 05/29/17 23:59 36.8 05/29/17 23:59 95 Nasal Cannula 2.0 05/29/17 23:00 99 20 125/82 (87) 98 05/29/17 22:01 129 28 111/84 (88) 95 05/29/17 21:05 103 23 117/65 (70) 99 05/29/17 20:31 111 16 119/60 (77) 93 05/29/17 20:24 110 20 94 Nasal Cannula 2.0 05/29/17 20:16 117 21 129/65 (83) 95 05/29/17 20:00 99 Nasal Cannula 2.0 05/29/17 20:00 98 18 140/75 (88) 97 05/29/17 20:00 36.5 05/29/17 19:46 115 17 120/73 (96) 92 05/29/17 19:31 112 22 104/85 (93) 95 05/29/17 19:16 109 19 131/92 (112) 94 05/29/17 19:01 104 20 126/84 (107) 93 Laboratory Results: Last 24 Hours Test 05/29/17 20:21 05/30/17 01:56 05/30/17 04:30 05/30/17 06:37 Bedside Glucose 219 mg/dl 157 mg/dl 147 mg/dl White Blood Count 8.00 K/uL Red Blood Count 2.57 M/uL Hemoglobin 7.0 g/dL Hematocrit 20.7 % Mean Corpuscular Volume 80.5 fL Mean Corpuscular Hemoglobin 27.2 pg Mean Corpuscular Hemoglobin Concent 33.8 g/dl Platelet Count 127 K/uL Mean Platelet Volume 9.5 fL Neutrophils (%) (Auto) 79.9 % Lymphocytes (%) (Auto) 12.1 % Monocytes (%) (Auto) 7.4 % Eosinophils (%) (Auto) 0.0 % Basophils (%) (Auto) 0.1 % Neutrophils # (Auto) 6.39 K/uL Lymphocytes # (Auto) 0.97 K/uL Monocytes # (Auto) 0.59 K/uL Eosinophils # (Auto) 0.00 K/uL Basophils # (Auto) 0.01 K/uL RDW Standard Deviation 40.8 fL RDW Coefficient of Variation 13.8 % Immature Granulocyte % (Auto) 0.5 % Immature Granulocyte # (Auto) 0.04 K/uL Red Blood Cell Morphology Unremarkable Activated Partial Thromboplast Time 39.0 SECONDS Partial Thromboplastin Ratio 1.5 Sodium Level 137 mmol/L Potassium Level 4.4 mmol/L Chloride Level 104 mmol/L Carbon Dioxide Level 27 mmol/L Anion Gap 6.0 mmol/L Blood Urea Nitrogen 67 mg/dl Creatinine 3.09 mg/dl Est Creatinine Clear Calc Drug Dose 29.5 ml/min Estimated GFR () 23.6 Estimated GFR (Non- 20.4 BUN/Creatinine Ratio 21.8 Random Glucose 144 mg/dl Calcium Level 8.0 mg/dl Phosphorus Level 4.1 mg/dl Magnesium Level 2.5 mg/dl Test 05/30/17 11:15 05/30/17 15:18 05/30/17 16:23 05/30/17 16:49 Bedside Glucose 120 mg/dl 122 mg/dl White Blood Count 9.17 K/uL Red Blood Count 2.79 M/uL Hemoglobin 7.5 g/dL Hematocrit 22.7 % Mean Corpuscular Volume 81.4 fL Mean Corpuscular Hemoglobin 26.9 pg Mean Corpuscular Hemoglobin Concent 33.0 g/dl RDW Standard Deviation 40.6 fL RDW Coefficient of Variation 13.6 % Platelet Count 136 K/uL Mean Platelet Volume 9.1 fL Nucleated RBC Absolute Count (auto) 0.03 K/uL Nucleated Red Blood Cells % 0.4 % Activated Partial Thromboplast Time 186.5 SECONDS 95.5 SECONDS Partial Thromboplastin Ratio 7.2 3.7
--- NOTE | 2017-05-30 19:41 | Progress Note ---
Medicine Progress Note Date & Time of Visit: May 30, 2017 at 19:35. Subjective patient seen resting in bed, comfortable oriented x 2, but still confused denies chest pain, dyspnea, dizziness, palpitations denies other symptoms Objective Last 8 Hrs Date Time Temp Pulse Resp B/P (MAP) Pulse Ox O2 Delivery O2 Flow Rate FiO2 05/30/17 18:16 109 22 120/79 (80) 96 05/30/17 18:07 82 16 92 Room Air 05/30/17 16:22 36.6 89 126/88 (101) 05/30/17 16:07 36.6 05/30/17 16:01 98 19 113/76 (81) 96 05/30/17 16:00 Nasal Cannula 2.0 05/30/17 14:28 100 16 98 Nasal Cannula 2.0 05/30/17 13:50 90 19 126/88 (100) 96 05/30/17 13:46 92 19 107/83 (87) 100 05/30/17 13:31 90 16 110/73 (81) 98 05/30/17 13:30 92 110/73 05/30/17 13:16 95 22 129/74 (86) 100 05/30/17 13:15 98 129/74 05/30/17 13:01 95 21 115/82 (87) 96 05/30/17 13:00 95 115/82 05/30/17 12:45 97 121/78 05/30/17 12:30 90 102/70 05/30/17 12:15 94 102/77 05/30/17 12:01 92 20 106/71 (81) 97 05/30/17 12:00 93 106/71 05/30/17 12:00 Nasal Cannula 2.0 05/30/17 11:45 97 122/70 Physical Exam: General- oriented x 3, not in distress, speaks in sentences with no effort Lungs- clear breath sounds bilaterally, no rales/wheezes Heart- irregular rhythm; no murmur, normal rate Abdomen- normal bowel sounds, soft, nontender Extremities- no pretibial edema, no calf tenderness Neuro- alert, oriented x 1;no gross focal deficits Skin- warm & dry Laboratory Results: Last 24 Hours Test 05/29/17 20:21 05/30/17 01:56 05/30/17 04:30 05/30/17 06:37 Bedside Glucose 219 mg/dl 157 mg/dl 147 mg/dl White Blood Count 8.00 K/uL Red Blood Count 2.57 M/uL Hemoglobin 7.0 g/dL Hematocrit 20.7 % Mean Corpuscular Volume 80.5 fL Mean Corpuscular Hemoglobin 27.2 pg Mean Corpuscular Hemoglobin Concent 33.8 g/dl Platelet Count 127 K/uL Mean Platelet Volume 9.5 fL Neutrophils (%) (Auto) 79.9 % Lymphocytes (%) (Auto) 12.1 % Monocytes (%) (Auto) 7.4 % Eosinophils (%) (Auto) 0.0 % Basophils (%) (Auto) 0.1 % Neutrophils # (Auto) 6.39 K/uL Lymphocytes # (Auto) 0.97 K/uL Monocytes # (Auto) 0.59 K/uL Eosinophils # (Auto) 0.00 K/uL Basophils # (Auto) 0.01 K/uL RDW Standard Deviation 40.8 fL RDW Coefficient of Variation 13.8 % Immature Granulocyte % (Auto) 0.5 % Immature Granulocyte # (Auto) 0.04 K/uL Red Blood Cell Morphology Unremarkable Activated Partial Thromboplast Time 39.0 SECONDS Partial Thromboplastin Ratio 1.5 Sodium Level 137 mmol/L Potassium Level 4.4 mmol/L Chloride Level 104 mmol/L Carbon Dioxide Level 27 mmol/L Anion Gap 6.0 mmol/L Blood Urea Nitrogen 67 mg/dl Creatinine 3.09 mg/dl Est Creatinine Clear Calc Drug Dose 29.5 ml/min Estimated GFR () 23.6 Estimated GFR (Non- 20.4 BUN/Creatinine Ratio 21.8 Random Glucose 144 mg/dl Calcium Level 8.0 mg/dl Phosphorus Level 4.1 mg/dl Magnesium Level 2.5 mg/dl Test 05/30/17 11:15 05/30/17 15:18 05/30/17 16:23 05/30/17 16:49 Bedside Glucose 120 mg/dl 122 mg/dl White Blood Count 9.17 K/uL Red Blood Count 2.79 M/uL Hemoglobin 7.5 g/dL Hematocrit 22.7 % Mean Corpuscular Volume 81.4 fL Mean Corpuscular Hemoglobin 26.9 pg Mean Corpuscular Hemoglobin Concent 33.0 g/dl RDW Standard Deviation 40.6 fL RDW Coefficient of Variation 13.6 % Platelet Count 136 K/uL Mean Platelet Volume 9.1 fL Nucleated RBC Absolute Count (auto) 0.03 K/uL Nucleated Red Blood Cells % 0.4 % Activated Partial Thromboplast Time 186.5 SECONDS 95.5 SECONDS Partial Thromboplastin Ratio 7.2 3.7 Date/Time Source Procedure Growth Status 05/30/17 15:00 Sputum Expectorated Sputum Gram Stain Pending Received 05/30/17 15:00 Sputum Expectorated Sputum Sputum Culture Pending Received Assessment & Plan 62m with hx of chf ef 35-40%, CAD, DM, HTN presenting with shortness of breath. ACUTE HYPOXIC RESPIRATORY FAILURE SECONDARY TO: - remains on 2 L of NC afebrile INFLUENZA INFECTION - completed Tamiflu BILATERAL PNEUMONIA - on Cefepime + Doxy POSSIBLE ACUTE ON CHRONIC CHF EXACERBATION - s/p IV Lasix held for now due to Acute Renal Failure on CKD ACUTE RENAL FAILURE ON CKD 4 - s/p IV Lasix given intermittent IV NSS - crea increased to 4s (+) altered mental status likely from Uremia - HD session 3 today monitor Nephrology on board POSSIBLE ASTHMA EXACERBATION - possible underlying ARPIT - on Nebs Prednisone A FIB IN RVR rate controlled on Amiodarone PO, Carvedilol Heparin discontinued HHS, DM 2 a1c 9.5 transitioned to Insulin Lantus Hypertension d/c Amlodipine continue Carvedilol Nonocclusive CAD ASA Chronic anemia secondary to kidney disease Hg 7.5 no apparent signs of bleeding monitor Chronic thrombocytopenia. Plt 130 to 85--> 136 monitor DVT PROPHYLAXIS scds heparin on hold as patient had cath placement Disposition pending will need PT/OT may need Rehab/SNF upon discharge Current Inpatient Medications: Current Inpatient Medications Medications (Trade) Dose Ordered Sig/Larry Route Start Time Stop Time Status Last Admin Dose Admin Doxycycline Hyclate (Vibramycin Cap) 100 mg BID PO 05/23/17 21:00 05/30/17 20:59 05/30/17 07:50 100 MG Acetaminophen (Tylenol Tab) 650 mg Q4H PRN PO 05/23/17 04:30 06/22/17 04:29 05/28/17 18:03 650 MG Nitroglycerin (Nitrostat Tab) 0.4 mg UD PRN SL 05/23/17 04:30 06/22/17 04:29 Hydromorphone HCl (Dilaudid Inj) 0.5 mg Q3H PRN IV 05/23/17 04:30 06/06/17 04:29 Tramadol HCl (Ultram Tab) not relieved ... Q6H PRN PO 05/23/17 04:30 06/22/17 04:29 Aspirin (Ecotrin Tab) 81 mg QAM PO 05/23/17 09:00 06/22/17 08:59 05/30/17 07:50 81 MG Carvedilol (Coreg Tab) 12.5 mg BID PO 05/23/17 09:00 06/22/17 08:59 05/30/17 14:20 12.5 MG Duloxetine HCl (Cymbalta Cap) 60 mg DAILY PO 05/23/17 09:00 06/22/17 08:59 05/30/17 07:49 60 MG Pantoprazole Sodium (Protonix Tab) 40 mg QAM PO 05/23/17 09:00 06/22/17 08:59 05/30/17 07:50 40 MG Rosuvastatin Calcium (Crestor Tab) 40 mg HS PO 05/23/17 21:00 06/22/17 20:59 05/29/17 20:27 40 MG Prochlorperazine Edisylate 5 mg/ Syringe 5 ml @ 5 mls/min Q6H PRN IV 05/23/17 04:30 06/22/17 04:29 05/25/17 09:28 5 MLS/MIN Guaifenesin (Mucinex Contr Rel Tab) 600 mg BID PO 05/23/17 21:00 06/22/17 20:59 05/30/17 07:49 600 MG Ipratropium [place] (Atrovent 0.02% 0.5MG/2.5ML Neb) 0.5 mg Q6R INH 05/23/17 09:00 06/22/17 08:59 05/30/17 18:07 0.5 MG Levalbuterol (Xopenex 1.25MG/ 0.5ML Neb) 1.25 mg Q6R INH 05/23/17 09:00 06/22/17 08:59 05/30/17 18:07 1.25 MG Ipratropium [place] (Atrovent 0.02% 0.5MG/2.5ML Neb) 0.5 mg Q4H PRN INH 05/23/17 05:15 06/22/17 05:14 05/25/17 00:20 0.5 MG Levalbuterol (Xopenex 1.25MG/ 0.5ML Neb) 1.25 mg Q4H PRN INH 05/23/17 05:15 06/22/17 05:14 05/25/17 00:20 1.25 MG Furosemide 40 mg/ Syringe 4 ml @ 4 mls/min DAILY IV 05/23/17 09:00 06/22/17 08:59 Future Hold 05/23/17 10:34 4 MLS/MIN Miscellaneous Information (Consult Glycemic Management Pharmacy) 1 ea UD N/A 05/23/17 09:48 06/22/17 09:47 Glucose (Glucose 40% Gel) 15-30 GRAMS 15 GRAMS... UD PRN PO 05/24/17 08:30 06/23/17 08:29 Glucose (Glucose Chew Tab) 4-8 Tablets 4 Tabl... UD PRN PO 05/24/17 08:30 06/23/17 08:29 Dextrose (Dextrose 50% 50ML Syringe) 25-50ML OF 50% DW IV FOR... UD PRN IV 05/24/17 08:30 06/23/17 08:29 05/27/17 23:29 25 ML Glucagon (Glucagon Inj) 1 mg UD PRN SQ 05/24/17 08:30 06/23/17 08:29 Heparin Sodium/ Dextrose 500 ml @ 21 mls/hr [id number] PRN IV 05/24/17 13:15 06/23/17 13:14 Future hold 05/30/17 18:30 21 MLS/HR Parenteral Electrolyte Solution 1,000 ml @ 50 mls/hr Q20H IV 05/25/17 10:30 06/24/17 10:29 05/30/17 11:30 50 MLS/HR Cefepime HCl (Consult) 1 ea UD PRN N/A 05/26/17 08:45 06/25/17 08:44 Amiodarone HCl (Cordarone Tab) 200 mg TIDM PO 05/27/17 11:30 06/26/17 11:29 05/30/17 17:39 200 MG Gabapentin (Neurontin Cap) 300 mg HS PO 05/28/17 21:00 06/27/17 20:59 05/29/17 20:27 300 MG Polyethylene (Miralax Powder Packet) 17 gm DAILY PO 05/29/17 09:00 06/28/17 08:59 05/30/17 07:51 17 GM Docusate Sodium (coLACE CAP) 100 mg BID PO 05/29/17 09:00 06/28/17 08:59 05/30/17 07:49 100 MG Insulin Aspart (novoLOG ASPART) SLIDING SCALE ACHS SC 05/29/17 12:00 06/28/17 11:59 05/30/17 07:53 5 UNITS Insulin Glargine (Lantus Solostar Pen) see protocol text BID SC 05/29/17 21:00 06/28/17 20:59 05/30/17 07:53 20 UNITS Prednisone (PredniSONE TAB) 40 mg QD PO 05/30/17 10:00 06/29/17 09:59 05/30/17 14:20 40 MG
[2017-05-30] MEDS: GABAPENTIN 300 MG CAP PO SCH (20:23)
[2017-05-30] MEDS: ROSUVASTATIN CALCIUM 20 MG TAB PO SCH (20:23)
[2017-05-30 20:29] LABS: HEMATOCRIT 21.6 % (42-52); HEMOGLOBIN 7.3 g/dL (14.0-18.0); MEAN CELL VOLUME 81.5 fL (80-100); MEAN CORPUSCULAR HEMOGLOBIN 27.5 pg (25-34); MEAN CORPUSCULAR HGB CONC 33.8 g/dl (32-36); MEAN PLATELET VOLUME 8.8 fL (7.4-10.4); NUCLEATED RED BLOOD CELL ABS 0.05 K/uL (0-0); PLATELET COUNT 146 K/uL (130-400); RED CELL DISTRIBUTION WIDTH CV 13.8 % (11.5-14.5); RETIC COUNT % 1.6 % (0.5-2.0); WHITE BLOOD COUNT 9.03 K/uL (4.8-10.8)
[2017-05-31] VITALS (12 sets, daily range): BP systolic 98–141; BP diastolic 57–97; PULSE 89–106; TEMP 36.4–36.9; O2SAT 94–99
[2017-05-31 00:49] LABS: HEMATOCRIT 21.6 % (42-52); HEMOGLOBIN 7.2 g/dL (14.0-18.0); MEAN CELL VOLUME 81.5 fL (80-100); MEAN CORPUSCULAR HEMOGLOBIN 27.2 pg (25-34); MEAN CORPUSCULAR HGB CONC 33.3 g/dl (32-36); MEAN PLATELET VOLUME 9.4 fL (7.4-10.4); NUCLEATED RED BLOOD CELL ABS 0.04 K/uL (0-0); PLATELET COUNT 165 K/uL (130-400); RED CELL DISTRIBUTION WIDTH CV 13.7 % (11.5-14.5); RED CELL DISTRIBUTION WIDTH SD 40.8 fL (36.4-46.3)
[2017-05-31] MEDS: HEPARIN 25,000 UNIT/500ML D5W 500 ML IV PRN (02:19)
[2017-05-31] MEDS: LEVALBUTEROL 1.25MG/0.5ML NEB INH SCH ×2 (02:26→07:12)
[2017-05-31] MEDS: IPRATROPIUM BROMIDE NEB SOLN 0.02% 2.5 ML VIAL INH SCH ×2 (02:26→07:12)
[2017-05-31] MEDS: NORMOSOL R 1,000 ML IV SCH (05:14)
[2017-05-31 06:12] LABS: CALCIUM 8.3 mg/dl (8.5-10.1); CREATININE 2.82 mg/dl (0.60-1.40); PHOSPHORUS 3.9 mg/dl (2.5-4.9); POTASSIUM 4.1 mmol/L (3.5-5.1)
[2017-05-31] MEDS: POLYETHYLENE (MIRALAX) 17 GM PACK PO SCH (07:48)
[2017-05-31] MEDS: GUAIFENESIN 600 MG TABCR PO SCH ×2 (07:50→21:23)
[2017-05-31] MEDS: AMIODARONE 200 MG TAB PO SCH ×3 (07:50→16:52)
[2017-05-31] MEDS: DULOXETINE HCL 60 MG CAP PO SCH (07:50)
[2017-05-31] MEDS: DOCUSATE SODIUM 100 MG CAP PO SCH ×2 (07:50→21:20)
[2017-05-31] MEDS: ASPIRIN 81 MG ECTAB PO SCH (07:50)
[2017-05-31] MEDS: PANTOprazole SOD 40 MG TAB PO SCH (07:51)
[2017-05-31] MEDS: INSULIN ASPART 100 UNITS/ML 3 ML PEN SC SCH ×4 (07:51→21:28)
[2017-05-31] MEDS: CARVEDILOL 12.5 MG TAB PO SCH ×2 (07:51→21:22)
[2017-05-31 08:11] LABS: HEMOGLOBIN 7.3 g/dL (14.0-18.0); MEAN CELL VOLUME 82.4 fL (80-100); MEAN CORPUSCULAR HEMOGLOBIN 27.3 pg (25-34); MEAN CORPUSCULAR HGB CONC 33.2 g/dl (32-36); MEAN PLATELET VOLUME 9.1 fL (7.4-10.4); NUCLEATED RED BLOOD CELL ABS 0.07 K/uL (0-0); PLATELET COUNT 165 K/uL (130-400); RED CELL DISTRIBUTION WIDTH CV 13.8 % (11.5-14.5); RED CELL DISTRIBUTION WIDTH SD 41.9 fL (36.4-46.3); WHITE BLOOD COUNT 11.72 K/uL (4.8-10.8)
[2017-05-31] MEDS ORDERED: INSULIN GLARGINE SOLOSTAR 100 UNITS/ML 3 ML PEN SC SCH ×3 (09:00→21:00)
--- NOTE | 2017-05-31 09:29 | Progress Note ---
Medicine Progress Note Date & Time of Visit: May 31, 2017 at 09:25. Subjective seen resting in bed, comfortable oriented x 3 not in distress alert, answers questions appropriately states he feels better today denies cough, dyspnea no abdominal pain, nausea no other symptoms Objective Last 8 Hrs Date Time Temp Pulse Resp B/P (MAP) Pulse Ox O2 Delivery O2 Flow Rate FiO2 05/31/17 08:00 Nasal Cannula 2.0 05/31/17 07:45 36.6 106 20 141/92 (108) 98 Nasal Cannula 2.0 05/31/17 07:14 96 16 98 Nasal Cannula 2.0 05/31/17 06:00 102 16 119/85 (96) 97 05/31/17 04:00 94 Nasal Cannula 2.0 05/31/17 04:00 36.6 13 98/57 (71) 94 05/31/17 02:26 89 16 99 Nasal Cannula 2.0 05/31/17 02:00 105 19 101/66 (81) 94 Physical Exam: General- oriented x 3, not in distress, speaks in sentences with no effort Lungs- clear BS bilaterally Heart- irregular rhythm; no murmur, normal rate Abdomen- normal bowel sounds, soft, nontender Extremities- no pretibial edema, no calf tenderness Neuro- alert, oriented x 1;no gross focal deficits Skin- warm & dry Laboratory Results: Last 24 Hours Test 05/30/17 11:15 05/30/17 15:18 05/30/17 16:23 05/30/17 16:49 Bedside Glucose 120 mg/dl 122 mg/dl White Blood Count 9.17 K/uL Red Blood Count 2.79 M/uL Hemoglobin 7.5 g/dL Hematocrit 22.7 % Mean Corpuscular Volume 81.4 fL Mean Corpuscular Hemoglobin 26.9 pg Mean Corpuscular Hemoglobin Concent 33.0 g/dl RDW Standard Deviation 40.6 fL RDW Coefficient of Variation 13.6 % Platelet Count 136 K/uL Mean Platelet Volume 9.1 fL Nucleated RBC Absolute Count (auto) 0.03 K/uL Nucleated Red Blood Cells % 0.4 % Activated Partial Thromboplast Time 186.5 SECONDS 95.5 SECONDS Partial Thromboplastin Ratio 7.2 3.7 Test 05/30/17 20:03 05/30/17 20:21 05/31/17 00:16 05/31/17 00:18 Bedside Glucose 155 mg/dl White Blood Count 9.03 K/uL 9.30 K/uL Red Blood Count 2.65 M/uL 2.65 M/uL Hemoglobin 7.3 g/dL 7.2 g/dL Hematocrit 21.6 % 21.6 % Mean Corpuscular Volume 81.5 fL 81.5 fL Mean Corpuscular Hemoglobin 27.5 pg 27.2 pg Mean Corpuscular Hemoglobin Concent 33.8 g/dl 33.3 g/dl RDW Standard Deviation 41.0 fL 40.8 fL RDW Coefficient of Variation 13.8 % 13.7 % Platelet Count 146 K/uL 165 K/uL Mean Platelet Volume 8.8 fL 9.4 fL Nucleated RBC Absolute Count (auto) 0.05 K/uL 0.04 K/uL Nucleated Red Blood Cells % 0.5 % 0.4 % Absolute Reticulocyte Count 0.04 10^6/uL Percent Reticulocyte Count 1.6 % Activated Partial Thromboplast Time 54.0 SECONDS Partial Thromboplastin Ratio 2.1 Test 05/31/17 05:26 05/31/17 06:17 05/31/17 06:42 05/31/17 07:51 Sodium Level 140 mmol/L Potassium Level 4.1 mmol/L Chloride Level 106 mmol/L Carbon Dioxide Level 26 mmol/L Anion Gap 8.0 mmol/L Blood Urea Nitrogen 50 mg/dl Creatinine 2.82 mg/dl Est Creatinine Clear Calc Drug Dose 32.4 ml/min Estimated GFR () 26.4 Estimated GFR (Non- 22.8 BUN/Creatinine Ratio 17.6 Random Glucose 56 mg/dl Calcium Level 8.3 mg/dl Phosphorus Level 3.9 mg/dl Magnesium Level 2.5 mg/dl Bedside Glucose 59 mg/dl 77 mg/dl White Blood Count 11.72 K/uL Red Blood Count 2.67 M/uL Hemoglobin 7.3 g/dL Hematocrit 22.0 % Mean Corpuscular Volume 82.4 fL Mean Corpuscular Hemoglobin 27.3 pg Mean Corpuscular Hemoglobin Concent 33.2 g/dl RDW Standard Deviation 41.9 fL RDW Coefficient of Variation 13.8 % Platelet Count 165 K/uL Mean Platelet Volume 9.1 fL Nucleated RBC Absolute Count (auto) 0.07 K/uL Nucleated Red Blood Cells % 0.6 % Date/Time Source Procedure Growth Status 05/30/17 15:00 Sputum Expectorated Sputum Gram Stain - Final Resulted 05/30/17 15:00 Sputum Expectorated Sputum Sputum Culture Pending Resulted Assessment & Plan 62m with hx of chf ef 35-40%, CAD, DM, HTN presenting with shortness of breath. ACUTE HYPOXIC RESPIRATORY FAILURE SECONDARY TO: - remains on 2 L of NC afebrile INFLUENZA INFECTION - completed Tamiflu BILATERAL PNEUMONIA - completed 7 days Cefepime + Doxy POSSIBLE ACUTE ON CHRONIC CHF EXACERBATION - s/p IV Lasix held for now due to Acute Renal Failure on CKD ACUTE RENAL FAILURE ON CKD 4 - s/p IV Lasix given intermittent IV NSS - crea increased to 4s (+) altered mental status likely from Uremia, resolved - received 3 HDs so far crea, mental status improving Nephrology on board POSSIBLE ASTHMA EXACERBATION - possible underlying ARPIT - on Nebs Prednisone 40mg po daily A FIB IN RVR rate controlled on Amiodarone PO, Carvedilol Heparin discontinued HHS, DM 2 a1c 9.5 transitioned to Insulin Lantus Hypertension d/c Amlodipine continue Carvedilol Nonocclusive CAD ASA Chronic anemia secondary to kidney disease Hg ~7 no apparent signs of bleeding monitor Chronic thrombocytopenia. Plt 130 to 85--> 136 monitor DVT PROPHYLAXIS scds heparin on hold as patient had cath placement Disposition pending will need PT/OT may need Rehab/SNF upon discharge Current Inpatient Medications: Current Inpatient Medications Medications (Trade) Dose Ordered Sig/Larry Route Start Time Stop Time Status Last Admin Dose Admin Acetaminophen (Tylenol Tab) 650 mg Q4H PRN PO 05/23/17 04:30 06/22/17 04:29 05/28/17 18:03 650 MG Nitroglycerin (Nitrostat Tab) 0.4 mg UD PRN SL 05/23/17 04:30 06/22/17 04:29 Hydromorphone HCl (Dilaudid Inj) 0.5 mg Q3H PRN IV 05/23/17 04:30 06/06/17 04:29 Tramadol HCl (Ultram Tab) not relieved ... Q6H PRN PO 05/23/17 04:30 06/22/17 04:29 Aspirin (Ecotrin Tab) 81 mg QAM PO 05/23/17 09:00 06/22/17 08:59 05/31/17 07:50 81 MG Carvedilol (Coreg Tab) 12.5 mg BID PO 05/23/17 09:00 06/22/17 08:59 05/31/17 07:51 12.5 MG Duloxetine HCl (Cymbalta Cap) 60 mg DAILY PO 05/23/17 09:00 06/22/17 08:59 05/31/17 07:50 60 MG Pantoprazole Sodium (Protonix Tab) 40 mg QAM PO 05/23/17 09:00 06/22/17 08:59 05/31/17 07:51 40 MG Rosuvastatin Calcium (Crestor Tab) 40 mg HS PO 05/23/17 21:00 06/22/17 20:59 05/30/17 20:23 40 MG Prochlorperazine Edisylate 5 mg/ Syringe 5 ml @ 5 mls/min Q6H PRN IV 05/23/17 04:30 06/22/17 04:29 05/25/17 09:28 5 MLS/MIN Guaifenesin (Mucinex Contr Rel Tab) 600 mg BID PO 05/23/17 21:00 06/22/17 20:59 05/31/17 07:50 600 MG Ipratropium [place] (Atrovent 0.02% 0.5MG/2.5ML Neb) 0.5 mg Q4H PRN INH 05/23/17 05:15 06/22/17 05:14 05/25/17 00:20 0.5 MG Levalbuterol (Xopenex 1.25MG/ 0.5ML Neb) 1.25 mg Q4H PRN INH 05/23/17 05:15 06/22/17 05:14 05/25/17 00:20 1.25 MG Furosemide 40 mg/ Syringe 4 ml @ 4 mls/min DAILY IV 05/23/17 09:00 06/22/17 08:59 Future Hold 05/23/17 10:34 4 MLS/MIN Miscellaneous Information (Consult Glycemic Management Pharmacy) 1 ea UD N/A 05/23/17 09:48 06/22/17 09:47 Glucose (Glucose 40% Gel) 15-30 GRAMS 15 GRAMS... UD PRN PO 05/24/17 08:30 06/23/17 08:29 Glucose (Glucose Chew Tab) 4-8 Tablets 4 Tabl... UD PRN PO 05/24/17 08:30 06/23/17 08:29 Dextrose (Dextrose 50% 50ML Syringe) 25-50ML OF 50% DW IV FOR... UD PRN IV 05/24/17 08:30 06/23/17 08:29 05/27/17 23:29 25 ML Glucagon (Glucagon Inj) 1 mg UD PRN SQ 05/24/17 08:30 06/23/17 08:29 Heparin Sodium/ Dextrose 500 ml @ 21 mls/hr [id number] PRN IV 05/24/17 13:15 06/23/17 13:14 Future hold 05/31/17 02:19 21 MLS/HR Parenteral Electrolyte Solution 1,000 ml @ 50 mls/hr Q20H IV 05/25/17 10:30 06/24/17 10:29 05/31/17 05:14 50 MLS/HR Cefepime HCl (Consult) 1 ea UD PRN N/A 05/26/17 08:45 06/25/17 08:44 Amiodarone HCl (Cordarone Tab) 200 mg TIDM PO 05/27/17 11:30 06/26/17 11:29 05/31/17 07:50 200 MG Gabapentin (Neurontin Cap) 300 mg HS PO 05/28/17 21:00 06/27/17 20:59 05/30/17 20:23 300 MG Polyethylene (Miralax Powder Packet) 17 gm DAILY PO 05/29/17 09:00 06/28/17 08:59 05/31/17 07:48 17 GM Docusate Sodium (coLACE CAP) 100 mg BID PO 05/29/17 09:00 06/28/17 08:59 05/31/17 07:50 100 MG Insulin Aspart (novoLOG ASPART) SLIDING SCALE ACHS SC 05/29/17 12:00 06/28/17 11:59 05/30/17 20:25 1 UNITS Prednisone (PredniSONE TAB) 40 mg QD PO 05/30/17 10:00 06/29/17 09:59 05/31/17 07:50 40 MG
--- NOTE | 2017-05-31 11:41 | Nephrology Progress Note ---
Nephrology Progress Note Date of Service: May 31, 2017. Subjective MS clearing after 3rd HD treatment; remains w/ poor appetite; hgb stable at about 7; remains on heparin gtt; wants groin line out Objective Date Time Temp Pulse Resp B/P (MAP) Pulse Ox O2 Delivery O2 Flow Rate FiO2 05/31/17 08:00 Nasal Cannula 2.0 05/31/17 07:45 36.6 106 20 141/92 (108) 98 Nasal Cannula 2.0 05/31/17 07:14 96 16 98 Nasal Cannula 2.0 05/31/17 06:00 102 16 119/85 (96) 97 05/31/17 04:00 94 Nasal Cannula 2.0 05/31/17 04:00 36.6 13 98/57 (71) 94 05/31/17 02:26 89 16 99 Nasal Cannula 2.0 05/31/17 02:00 105 19 101/66 (81) 94 05/31/17 00:07 99 20 105/80 (96) 98 05/30/17 23:59 36.6 05/30/17 23:59 97 Nasal Cannula 2.0 05/30/17 21:50 100 18 137/77 (90) 97 05/30/17 20:19 105 19 113/79 (97) 92 05/30/17 20:00 37.1 05/30/17 20:00 96 Nasal Cannula 2.0 05/30/17 18:16 109 22 120/79 (80) 96 05/30/17 18:07 82 16 92 Room Air 05/30/17 16:22 36.6 89 126/88 (101) 05/30/17 16:07 36.6 05/30/17 16:01 98 19 113/76 (81) 96 05/30/17 16:00 Nasal Cannula 2.0 05/30/17 14:28 100 16 98 Nasal Cannula 2.0 05/30/17 13:50 90 19 126/88 (100) 96 05/30/17 13:46 92 19 107/83 (87) 100 05/30/17 13:31 90 16 110/73 (81) 98 05/30/17 13:30 92 110/73 05/30/17 13:16 95 22 129/74 (86) 100 05/30/17 13:15 98 129/74 05/30/17 13:01 95 21 115/82 (87) 96 05/30/17 13:00 95 115/82 05/30/17 12:45 97 121/78 05/30/17 12:30 90 102/70 05/30/17 12:15 94 102/77 05/30/17 12:01 92 20 106/71 (81) 97 05/30/17 12:00 93 106/71 05/30/17 12:00 Nasal Cannula 2.0 05/30/17 11:45 97 122/70 Physical Exam: General-alert interactive, appropriate on RA Eyes-no scleral icterus ENT-mmm Neck-supple Lungs-clear w/ diminished air entry Heart-irregularly irregular in 90s Abdomen-bs+ s/nt/nd; cuadra w/ ample urine today w/ some blood tinge Extremities-no c/c/e Neuro-no mariah tremors Current Inpatient Medications Medications (Trade) Dose Ordered Sig/Larry Route Start Time Stop Time Status Last Admin Dose Admin Acetaminophen (Tylenol Tab) 650 mg Q4H PRN PO 05/23/17 04:30 06/22/17 04:29 05/28/17 18:03 650 MG Nitroglycerin (Nitrostat Tab) 0.4 mg UD PRN SL 05/23/17 04:30 06/22/17 04:29 Hydromorphone HCl (Dilaudid Inj) 0.5 mg Q3H PRN IV 05/23/17 04:30 06/06/17 04:29 Tramadol HCl (Ultram Tab) not relieved ... Q6H PRN PO 05/23/17 04:30 06/22/17 04:29 Aspirin (Ecotrin Tab) 81 mg QAM PO 05/23/17 09:00 06/22/17 08:59 05/31/17 07:50 81 MG Carvedilol (Coreg Tab) 12.5 mg BID PO 05/23/17 09:00 06/22/17 08:59 05/31/17 07:51 12.5 MG Duloxetine HCl (Cymbalta Cap) 60 mg DAILY PO 05/23/17 09:00 06/22/17 08:59 05/31/17 07:50 60 MG Pantoprazole Sodium (Protonix Tab) 40 mg QAM PO 05/23/17 09:00 06/22/17 08:59 05/31/17 07:51 40 MG Rosuvastatin Calcium (Crestor Tab) 40 mg HS PO 05/23/17 21:00 06/22/17 20:59 05/30/17 20:23 40 MG Prochlorperazine Edisylate 5 mg/ Syringe 5 ml @ 5 mls/min Q6H PRN IV 05/23/17 04:30 06/22/17 04:29 05/25/17 09:28 5 MLS/MIN Guaifenesin (Mucinex Contr Rel Tab) 600 mg BID PO 05/23/17 21:00 06/22/17 20:59 05/31/17 07:50 600 MG Ipratropium [place] (Atrovent 0.02% 0.5MG/2.5ML Neb) 0.5 mg Q4H PRN INH 05/23/17 05:15 06/22/17 05:14 05/25/17 00:20 0.5 MG Levalbuterol (Xopenex 1.25MG/ 0.5ML Neb) 1.25 mg Q4H PRN INH 05/23/17 05:15 06/22/17 05:14 05/25/17 00:20 1.25 MG Furosemide 40 mg/ Syringe 4 ml @ 4 mls/min DAILY IV 05/23/17 09:00 06/22/17 08:59 Future Hold 05/23/17 10:34 4 MLS/MIN Miscellaneous Information (Consult Glycemic Management Pharmacy) 1 ea UD N/A 05/23/17 09:48 06/22/17 09:47 Glucose (Glucose 40% Gel) 15-30 GRAMS 15 GRAMS... UD PRN PO 05/24/17 08:30 06/23/17 08:29 Glucose (Glucose Chew Tab) 4-8 Tablets 4 Tabl... UD PRN PO 05/24/17 08:30 06/23/17 08:29 Dextrose (Dextrose 50% 50ML Syringe) 25-50ML OF 50% DW IV FOR... UD PRN IV 05/24/17 08:30 06/23/17 08:29 05/27/17 23:29 25 ML Glucagon (Glucagon Inj) 1 mg UD PRN SQ 05/24/17 08:30 06/23/17 08:29 Heparin Sodium/ Dextrose 500 ml @ 21 mls/hr [id number] PRN IV 05/24/17 13:15 06/23/17 13:14 Future hold 05/31/17 02:19 21 MLS/HR Parenteral Electrolyte Solution 1,000 ml @ 50 mls/hr Q20H IV 05/25/17 10:30 06/24/17 10:29 05/31/17 05:14 50 MLS/HR Cefepime HCl (Consult) 1 ea UD PRN N/A 05/26/17 08:45 06/25/17 08:44 Amiodarone HCl (Cordarone Tab) 200 mg TIDM PO 05/27/17 11:30 06/26/17 11:29 05/31/17 07:50 200 MG Gabapentin (Neurontin Cap) 300 mg HS PO 05/28/17 21:00 06/27/17 20:59 05/30/17 20:23 300 MG Polyethylene (Miralax Powder Packet) 17 gm DAILY PO 05/29/17 09:00 06/28/17 08:59 05/31/17 07:48 17 GM Docusate Sodium (coLACE CAP) 100 mg BID PO 05/29/17 09:00 06/28/17 08:59 05/31/17 07:50 100 MG Insulin Aspart (novoLOG ASPART) SLIDING SCALE ACHS SC 05/29/17 12:00 06/28/17 11:59 05/30/17 20:25 1 UNITS Prednisone (PredniSONE TAB) 40 mg QD PO 05/30/17 10:00 06/29/17 09:59 05/31/17 07:50 40 MG Last 24 Hours Test 05/30/17 15:18 05/30/17 16:23 05/30/17 16:49 05/30/17 20:03 White Blood Count 9.17 K/uL Red Blood Count 2.79 M/uL Hemoglobin 7.5 g/dL Hematocrit 22.7 % Mean Corpuscular Volume 81.4 fL Mean Corpuscular Hemoglobin 26.9 pg Mean Corpuscular Hemoglobin Concent 33.0 g/dl RDW Standard Deviation 40.6 fL RDW Coefficient of Variation 13.6 % Platelet Count 136 K/uL Mean Platelet Volume 9.1 fL Nucleated RBC Absolute Count (auto) 0.03 K/uL Nucleated Red Blood Cells % 0.4 % Activated Partial Thromboplast Time 186.5 SECONDS 95.5 SECONDS Partial Thromboplastin Ratio 7.2 3.7 Bedside Glucose 122 mg/dl 155 mg/dl Test 05/30/17 20:21 05/31/17 00:16 05/31/17 00:18 05/31/17 05:26 White Blood Count 9.03 K/uL 9.30 K/uL Red Blood Count 2.65 M/uL 2.65 M/uL Hemoglobin 7.3 g/dL 7.2 g/dL Hematocrit 21.6 % 21.6 % Mean Corpuscular Volume 81.5 fL 81.5 fL Mean Corpuscular Hemoglobin 27.5 pg 27.2 pg Mean Corpuscular Hemoglobin Concent 33.8 g/dl 33.3 g/dl RDW Standard Deviation 41.0 fL 40.8 fL RDW Coefficient of Variation 13.8 % 13.7 % Platelet Count 146 K/uL 165 K/uL Mean Platelet Volume 8.8 fL 9.4 fL Nucleated RBC Absolute Count (auto) 0.05 K/uL 0.04 K/uL Nucleated Red Blood Cells % 0.5 % 0.4 % Absolute Reticulocyte Count 0.04 10^6/uL Percent Reticulocyte Count 1.6 % Activated Partial Thromboplast Time 54.0 SECONDS Partial Thromboplastin Ratio 2.1 Sodium Level 140 mmol/L Potassium Level 4.1 mmol/L Chloride Level 106 mmol/L Carbon Dioxide Level 26 mmol/L Anion Gap 8.0 mmol/L Blood Urea Nitrogen 50 mg/dl Creatinine 2.82 mg/dl Est Creatinine Clear Calc Drug Dose 32.4 ml/min Estimated GFR () 26.4 Estimated GFR (Non- 22.8 BUN/Creatinine Ratio 17.6 Random Glucose 56 mg/dl Calcium Level 8.3 mg/dl Phosphorus Level 3.9 mg/dl Magnesium Level 2.5 mg/dl Test 05/31/17 06:17 05/31/17 06:42 05/31/17 07:51 05/31/17 10:57 Bedside Glucose 59 mg/dl 77 mg/dl 208 mg/dl White Blood Count 11.72 K/uL Red Blood Count 2.67 M/uL Hemoglobin 7.3 g/dL Hematocrit 22.0 % Mean Corpuscular Volume 82.4 fL Mean Corpuscular Hemoglobin 27.3 pg Mean Corpuscular Hemoglobin Concent 33.2 g/dl RDW Standard Deviation 41.9 fL RDW Coefficient of Variation 13.8 % Platelet Count 165 K/uL Mean Platelet Volume 9.1 fL Nucleated RBC Absolute Count (auto) 0.07 K/uL Nucleated Red Blood Cells % 0.6 % Date/Time Source Procedure Growth Status 05/30/17 15:00 Sputum Expectorated Sputum Gram Stain - Final Resulted 05/30/17 15:00 Sputum Expectorated Sputum Sputum Culture Pending Resulted Assessment & Plan 62 yo male with flu/afib rate controlled with atn who started acute dialysis 05/28 to help improve tremors and confusion. urinating well and tolerating iv fluids well. tremors are better today as is confusion. [id number]-oliguric on CKD 4- urinating well-confusion and tremors improved. initiated diaysis 05/28; on 05/30 had 3rd day of gentle HD for clearance; now w/ mental/clinical status improving. continue to look for other possible causes for confusion. 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 acute on chronic anemia -will dose 10K units SQ epo today -order for iron studies in for am
[2017-05-31] MEDS ORDERED: EPOETIN ALFA 10,000 UNITS/ML VIAL SQ SCH (12:15)
--- NOTE | 2017-05-31 12:36 | Cardiology Follow-Up ---
Subjective General Date of Service: May 31, 2017. Chief Complaint: follow up shortness of breath Pt evaluation today including: conversation w/ patient, conversation w/ family , physical exam, chart review, lab review, review of studies, conversation w/ virtualization consultant, review of inpatient medication list History of Present Illness The patient is a 62 year old male seen in follow up. Denies CP or SOB. Feeling better today. More alert. Requesting discharge. AF with borderline rate control on telemetry. Allergies Coded Allergies: No Known Allergies (Verified , 05/23/17) Social History Smoking Status: Never Smoker Hx Tobacco Use In Past Year?: No Hx Alcohol Use - Type And Amou: No Hx Substance Use - Type And Am: No Problem List Medical Problems: (1) CHF (congestive heart failure) Status: Acute (2) CHF (congestive heart failure) Status: Acute (3) Diffuse abdominal pain Status: Acute (4) Elevated troponin Status: Acute (5) Precordial chest pain Status: Acute (6) Renal cyst Status: Acute (7) Shortness of breath Status: Acute (8) Shortness of breath Status: Acute Review of Systems Respiratory: + cough, + wheezing, + dyspnea on exertion, No sputum, No shortness of breath, No dyspnea at rest, No hemoptysis Cardiac: No chest pain, No orthopnea, No edema, No claudication, No palpitations Physical Exam Vital Signs Last Vital Signs Documentation Date Time Temp Pulse Resp B/P (MAP) Pulse Ox O2 Delivery O2 Flow Rate FiO2 05/31/17 12:00 Room Air 05/31/17 10:59 36.8 94 18 135/97 (110) 94 05/31/17 08:00 2.0 05/29/17 09:42 40 Physical Exam Constitutional: Level of Distress: NAD, acutely ill Head: normocephalic ENMT: TMs normal Neck: supple, trachea midline Lungs: Auscultation: expiratory wheezing Cardiovascular: Heart Auscultation: irregular rate rhythm, pertinent finding (/6 SM) Abdomen: Inspection & Palpation: soft, non-distended Extremities: no edema Neurologic: Gait & Station: pertinent finding (confuse, tremor) Assessment and Plan Assessment and Plan Impression: 1. Acute influenza A 2. Systolic heart failure, history of left bundle branch block, nonischemic cardiomyopathy, LVEF 30-40% March 2017 -patient appears compensated 3. Acute kidney injury (nonoliguric) on stage III chronic kidney disease, 4. Atrial fibrillation with borderline rate control - new onset - IV heparin restarted 5. Encephalopathy / delirium, perhaps due to uremia, acute influenza, +/- Tamiflu - mental status improving 6. Anemia - Hgb stable at 7.3gm/dL today Plan: ECG today. Follow telemetry. Continue oral amiodarone. Continue IV heparin. Hold warfarin until need for further invasive procedures is clear. Possible hemodialysis as per nephrology. Follow H/H. Iron studies pending. Epogen as per nephrology. Laboratory Results Last 24 Hours Test 05/30/17 15:18 05/30/17 16:23 05/30/17 16:49 05/30/17 20:03 White Blood Count 9.17 K/uL Red Blood Count 2.79 M/uL Hemoglobin 7.5 g/dL Hematocrit 22.7 % Mean Corpuscular Volume 81.4 fL Mean Corpuscular Hemoglobin 26.9 pg Mean Corpuscular Hemoglobin Concent 33.0 g/dl RDW Standard Deviation 40.6 fL RDW Coefficient of Variation 13.6 % Platelet Count 136 K/uL Mean Platelet Volume 9.1 fL Nucleated RBC Absolute Count (auto) 0.03 K/uL Nucleated Red Blood Cells % 0.4 % Activated Partial Thromboplast Time 186.5 SECONDS 95.5 SECONDS Partial Thromboplastin Ratio 7.2 3.7 Bedside Glucose 122 mg/dl 155 mg/dl Test 05/30/17 20:21 05/31/17 00:16 05/31/17 00:18 05/31/17 05:26 White Blood Count 9.03 K/uL 9.30 K/uL Red Blood Count 2.65 M/uL 2.65 M/uL Hemoglobin 7.3 g/dL 7.2 g/dL Hematocrit 21.6 % 21.6 % Mean Corpuscular Volume 81.5 fL 81.5 fL Mean Corpuscular Hemoglobin 27.5 pg 27.2 pg Mean Corpuscular Hemoglobin Concent 33.8 g/dl 33.3 g/dl RDW Standard Deviation 41.0 fL 40.8 fL RDW Coefficient of Variation 13.8 % 13.7 % Platelet Count 146 K/uL 165 K/uL Mean Platelet Volume 8.8 fL 9.4 fL Nucleated RBC Absolute Count (auto) 0.05 K/uL 0.04 K/uL Nucleated Red Blood Cells % 0.5 % 0.4 % Absolute Reticulocyte Count 0.04 10^6/uL Percent Reticulocyte Count 1.6 % Activated Partial Thromboplast Time 54.0 SECONDS Partial Thromboplastin Ratio 2.1 Sodium Level 140 mmol/L Potassium Level 4.1 mmol/L Chloride Level 106 mmol/L Carbon Dioxide Level 26 mmol/L Anion Gap 8.0 mmol/L Blood Urea Nitrogen 50 mg/dl Creatinine 2.82 mg/dl Est Creatinine Clear Calc Drug Dose 32.4 ml/min Estimated GFR () 26.4 Estimated GFR (Non- 22.8 BUN/Creatinine Ratio 17.6 Random Glucose 56 mg/dl Calcium Level 8.3 mg/dl Phosphorus Level 3.9 mg/dl Magnesium Level 2.5 mg/dl Test 05/31/17 06:17 05/31/17 06:42 05/31/17 07:51 05/31/17 10:57 Bedside Glucose 59 mg/dl 77 mg/dl 208 mg/dl White Blood Count 11.72 K/uL Red Blood Count 2.67 M/uL Hemoglobin 7.3 g/dL Hematocrit 22.0 % Mean Corpuscular Volume 82.4 fL Mean Corpuscular Hemoglobin 27.3 pg Mean Corpuscular Hemoglobin Concent 33.2 g/dl RDW Standard Deviation 41.9 fL RDW Coefficient of Variation 13.8 % Platelet Count 165 K/uL Mean Platelet Volume 9.1 fL Nucleated RBC Absolute Count (auto) 0.07 K/uL Nucleated Red Blood Cells % 0.6 %
--- NOTE | 2017-05-31 14:01 | Pharmacy Progress Note ---
Pharmacy Glycemic Short Note 2 Date of Service May 31, 2017. OUTPATIENT ANTIDIABETIC REGIMEN: * Novolog with meals - 7 units breakfast, 14 units lunch and dinner * Lantus 45 units HS * A1c = 9.2 % 05/23/17 ASSESSMENT: * See progress note from 05/23/17 for background info, in short: * Pt receiving SQ basal/bolus insulin for baseline T2DM in the setting of acute hypoxemic respiratory failure secondary to decompensated heart failure, bronchitis/flu pneumonia. Pt on amiodarone and heparin drip. * Pt received total of 47 units of insulin over the past 24 hours with BSGs: 120 -157 * Current regimen is highly basal insulin (85% basal/15% bolus but patient not eating much). Fasting BSG today is below goal at 59. Will decrease basal insulin to around 30 units which represents a 20% reduction. Plan to have larger basal dose at night since patient typically takes basal insulin at night. * Patient did not receive any insulin with breakfast therefore blood sugar was high at 208 today at lunch. To prevent overcorrection loosened parameters lightly then tightened again for dinner. PLAN FOR INPATIENT GLYCEMIC CONTROL: * Basal insulin * Lantus 10 units SQ AM then 15-20 units at bedtime. * Bolus insulin * NovoLog per scale ACHS or Q6hrs while NPO * Goal Range: Low 120 mg/dL - High 160 mg/dL * Correction Factor: 12 mg/dL/unit * Nutritional / Prandial insulin per carb ratio of 1 unit per 4 grams CHO consumed PLAN FOR DISCHARGE: * A1c of 9.2% indicates poor outpatient glycemic control * Basal insulin appears to be appropriate - fasting BSGs near goal. * Recommend titration of prandial insulin per outpatient provider. Thank you.
[2017-05-31 14:43] LABS: HEMATOCRIT 22.4 % (42-52); HEMOGLOBIN 7.4 g/dL (14.0-18.0); MEAN CORPUSCULAR HEMOGLOBIN 27.4 pg (25-34); MEAN PLATELET VOLUME 9.3 fL (7.4-10.4); NUCLEATED RED BLOOD CELL ABS 0.06 K/uL (0-0); PLATELET COUNT 188 K/uL (130-400); RED CELL DISTRIBUTION WIDTH CV 13.9 % (11.5-14.5); RED CELL DISTRIBUTION WIDTH SD 41.8 fL (36.4-46.3); WHITE BLOOD COUNT 9.89 K/uL (4.8-10.8)
[2017-05-31] MEDS: ROSUVASTATIN CALCIUM 20 MG TAB PO SCH (21:23)
[2017-05-31] MEDS: GABAPENTIN 300 MG CAP PO SCH (21:23)
[2017-06-01] VITALS (23 sets, daily range): BP systolic 111–165; BP diastolic 57–104; PULSE 76–154; TEMP 36.6–37.3; O2SAT 92–99
[2017-06-01] MEDS: NORMOSOL R 1,000 ML IV SCH (02:42)
[2017-06-01] MEDS: HEPARIN 25,000 UNIT/500ML D5W 500 ML IV PRN ×2 (02:44→08:47)
--- NOTE | 2017-06-01 06:44 | Nephrology Progress Note ---
Nephrology Progress Note Date of Service: Jun 01, 2017. Subjective 62 yo male with flu/afib rate/atn who required dialysis for worsening mental status/tremors/uremia. pt urinating very well and mental status improved. labs pending for this am. pt complaining of discomfort in his leg from the catheter. eating and drinking well. Objective Date Time Temp Pulse Resp B/P (MAP) Pulse Ox O2 Delivery O2 Flow Rate FiO2 06/01/17 04:00 Nasal Cannula 2.0 06/01/17 03:47 36.9 76 18 118/75 (89) 92 Nasal Cannula 2.0 06/01/17 00:00 Nasal Cannula 2.0 05/31/17 23:07 36.9 92 18 120/83 (95) 99 Nasal Cannula 2.0 05/31/17 20:00 Room Air 05/31/17 19:05 36.4 106 18 111/77 (88) 97 Room Air 05/31/17 17:24 36.6 93 23 96 05/31/17 16:00 Room Air 05/31/17 16:00 36.6 93 23 136/81 (99) 96 Room Air 05/31/17 12:00 Room Air 05/31/17 10:59 36.8 94 18 135/97 (110) 94 Room Air 05/31/17 08:00 Nasal Cannula 2.0 05/31/17 07:45 36.6 106 20 141/92 (108) 98 Nasal Cannula 2.0 05/31/17 07:14 96 16 98 Nasal Cannula 2.0 Physical Exam: General-aaox3 Eyes-no scleral icterus ENT-mmm Neck-supple Lungs-clear Heart-irregularly irregular Abdomen-bs+ s/nt/nd Extremities-no c/c/e Neuro-nonfocal Current Inpatient Medications Medications (Trade) Dose Ordered Sig/Larry Route Start Time Stop Time Status Last Admin Dose Admin Acetaminophen (Tylenol Tab) 650 mg Q4H PRN PO 05/23/17 04:30 06/22/17 04:29 05/28/17 18:03 650 MG Nitroglycerin (Nitrostat Tab) 0.4 mg UD PRN SL 05/23/17 04:30 06/22/17 04:29 Hydromorphone HCl (Dilaudid Inj) 0.5 mg Q3H PRN IV 05/23/17 04:30 06/06/17 04:29 Tramadol HCl (Ultram Tab) not relieved ... Q6H PRN PO 05/23/17 04:30 06/22/17 04:29 Aspirin (Ecotrin Tab) 81 mg QAM PO 05/23/17 09:00 06/22/17 08:59 05/31/17 07:50 81 MG Carvedilol (Coreg Tab) 12.5 mg BID PO 05/23/17 09:00 06/22/17 08:59 05/31/17 21:22 12.5 MG Duloxetine HCl (Cymbalta Cap) 60 mg DAILY PO 05/23/17 09:00 06/22/17 08:59 05/31/17 07:50 60 MG Pantoprazole Sodium (Protonix Tab) 40 mg QAM PO 05/23/17 09:00 06/22/17 08:59 05/31/17 07:51 40 MG Rosuvastatin Calcium (Crestor Tab) 40 mg HS PO 05/23/17 21:00 06/22/17 20:59 05/31/17 21:23 40 MG Prochlorperazine Edisylate 5 mg/ Syringe 5 ml @ 5 mls/min Q6H PRN IV 05/23/17 04:30 06/22/17 04:29 05/25/17 09:28 5 MLS/MIN Guaifenesin (Mucinex Contr Rel Tab) 600 mg BID PO 05/23/17 21:00 06/22/17 20:59 05/31/17 21:23 600 MG Ipratropium [place] (Atrovent 0.02% 0.5MG/2.5ML Neb) 0.5 mg Q4H PRN INH 05/23/17 05:15 06/22/17 05:14 05/25/17 00:20 0.5 MG Levalbuterol (Xopenex 1.25MG/ 0.5ML Neb) 1.25 mg Q4H PRN INH 05/23/17 05:15 06/22/17 05:14 05/25/17 00:20 1.25 MG Furosemide 40 mg/ Syringe 4 ml @ 4 mls/min DAILY IV 05/23/17 09:00 06/22/17 08:59 Future Hold 05/23/17 10:34 4 MLS/MIN Miscellaneous Information (Consult Glycemic Management Pharmacy) 1 ea UD N/A 05/23/17 09:48 06/22/17 09:47 Glucose (Glucose 40% Gel) 15-30 GRAMS 15 GRAMS... UD PRN PO 05/24/17 08:30 06/23/17 08:29 Glucose (Glucose Chew Tab) 4-8 Tablets 4 Tabl... UD PRN PO 05/24/17 08:30 06/23/17 08:29 Dextrose (Dextrose 50% 50ML Syringe) 25-50ML OF 50% DW IV FOR... UD PRN IV 05/24/17 08:30 06/23/17 08:29 05/27/17 23:29 25 ML Glucagon (Glucagon Inj) 1 mg UD PRN SQ 05/24/17 08:30 06/23/17 08:29 Heparin Sodium/ Dextrose 500 ml @ 21 mls/hr [id number] PRN IV 05/24/17 13:15 06/23/17 13:14 Future hold 06/01/17 02:44 21 MLS/HR Parenteral Electrolyte Solution 1,000 ml @ 50 mls/hr Q20H IV 05/25/17 10:30 06/24/17 10:29 06/01/17 02:42 50 MLS/HR Cefepime HCl (Consult) 1 ea UD PRN N/A 05/26/17 08:45 06/25/17 08:44 Amiodarone HCl (Cordarone Tab) 200 mg TIDM PO 05/27/17 11:30 06/26/17 11:29 05/31/17 16:52 200 MG Gabapentin (Neurontin Cap) 300 mg HS PO 05/28/17 21:00 06/27/17 20:59 05/31/17 21:23 300 MG Polyethylene (Miralax Powder Packet) 17 gm DAILY PO 05/29/17 09:00 06/28/17 08:59 05/31/17 07:48 17 GM Docusate Sodium (coLACE CAP) 100 mg BID PO 05/29/17 09:00 06/28/17 08:59 05/31/17 21:20 100 MG Insulin Aspart (novoLOG ASPART) SLIDING SCALE ACHS SC 05/29/17 12:00 06/28/17 11:59 05/31/17 21:28 3 UNITS Prednisone (PredniSONE TAB) 40 mg QD PO 05/30/17 10:00 06/29/17 09:59 05/31/17 07:50 40 MG Insulin Glargine (Lantus Solostar Pen) SEE PROTOCOL TEXT HS SC 05/31/17 21:00 06/30/17 20:59 05/31/17 21:28 20 UNITS Insulin Glargine (Lantus Solostar Pen) 10 units QAM SC 06/01/17 09:00 07/01/17 08:59 Heparin Sodium (Porcine) (No Heparin In Dialysis) 1 ea ONE ONCE N/A 06/01/17 08:00 06/01/17 08:01 Last 24 Hours Test 05/31/17 06:42 05/31/17 07:51 05/31/17 10:57 05/31/17 14:21 Bedside Glucose 77 mg/dl 208 mg/dl White Blood Count 11.72 K/uL 9.89 K/uL Red Blood Count 2.67 M/uL 2.70 M/uL Hemoglobin 7.3 g/dL 7.4 g/dL Hematocrit 22.0 % 22.4 % Mean Corpuscular Volume 82.4 fL 83.0 fL Mean Corpuscular Hemoglobin 27.3 pg 27.4 pg Mean Corpuscular Hemoglobin Concent 33.2 g/dl 33.0 g/dl RDW Standard Deviation 41.9 fL 41.8 fL RDW Coefficient of Variation 13.8 % 13.9 % Platelet Count 165 K/uL 188 K/uL Mean Platelet Volume 9.1 fL 9.3 fL Nucleated RBC Absolute Count (auto) 0.07 K/uL 0.06 K/uL Nucleated Red Blood Cells % 0.6 % 0.6 % Test 05/31/17 15:52 05/31/17 20:44 06/01/17 04:44 Bedside Glucose 255 mg/dl 175 mg/dl Transferrin % Saturation % Assessment & Plan [id number]- urinating well-pts mental status improved. labs pending for this am but if stable-plan on no more dialysis and would remove temporary dialysis catheter and remove cuadra. stopped the iv fluids. still on heparin drip and defer to cardiology.
[2017-06-01 08:02] LABS: PTT PATIENT 41.2 SECONDS (21.0-31.0)
[2017-06-01 08:06] LABS: HEMATOCRIT 20.8 % (42-52); MEAN CELL VOLUME 82.9 fL (80-100); MEAN CORPUSCULAR HEMOGLOBIN 27.9 pg (25-34); MEAN CORPUSCULAR HGB CONC 33.7 g/dl (32-36); MEAN PLATELET VOLUME 8.9 fL (7.4-10.4); NUCLEATED RED BLOOD CELL ABS 0.07 K/uL (0-0); PLATELET COUNT 203 K/uL (130-400); RED CELL DISTRIBUTION WIDTH CV 13.8 % (11.5-14.5); RED CELL DISTRIBUTION WIDTH SD 41.5 fL (36.4-46.3); WHITE BLOOD COUNT 10.98 K/uL (4.8-10.8)
[2017-06-01 08:31] LABS: CALCIUM 8.6 mg/dl (8.5-10.1); CREATININE 3.25 mg/dl (0.60-1.40); POTASSIUM 4.4 mmol/L (3.5-5.1)
[2017-06-01] MEDS: DOCUSATE SODIUM 100 MG CAP PO SCH (08:32)
[2017-06-01] MEDS: PANTOprazole SOD 40 MG TAB PO SCH (08:32)
[2017-06-01] MEDS: ASPIRIN 81 MG ECTAB PO SCH (08:32)
[2017-06-01] MEDS: GUAIFENESIN 600 MG TABCR PO SCH ×2 (08:32→21:48)
[2017-06-01] MEDS: CARVEDILOL 12.5 MG TAB PO SCH ×2 (08:32→21:48)
[2017-06-01] MEDS: DULOXETINE HCL 60 MG CAP PO SCH (08:32)
[2017-06-01] MEDS: AMIODARONE 200 MG TAB PO SCH ×3 (08:32→17:12)
[2017-06-01] MEDS: INSULIN ASPART 100 UNITS/ML 3 ML PEN SC SCH ×4 (08:34→21:44)
[2017-06-01] MEDS: INSULIN GLARGINE SOLOSTAR 100 UNITS/ML 3 ML PEN SC SCH ×2 (08:35→21:47)
[2017-06-01] MEDS ORDERED: HEPARIN IV BOLUS 3,000 UNIT in SYRINGE 0 ML IV SCH (08:45)
[2017-06-01] MEDS ORDERED: INSULIN GLARGINE SOLOSTAR 100 UNITS/ML 3 ML PEN SC SCH (09:00)
[2017-06-01] MEDS: POLYETHYLENE (MIRALAX) 17 GM PACK PO SCH (09:23)
--- NOTE | 2017-06-01 12:16 | DIAGNOSTIC IMAGING REPORT ---
ABD/PELVIS NO IV OR ORAL CONT CLINICAL HISTORY: 62 years-old Male presenting with HEMORRHAGE. TECHNIQUE: Multidetector CT of the abdomen and pelvis was performed without the use of intravenous contrast. IV contrast: None. A dose lowering technique was used consistent with the principles of ALARA (as low as reasonably achievable). COMPARISON: 09/11/2016. CT DOSE (mGy.cm): The estimated cumulative dose is 1561.19 mGy.cm. FINDINGS: Popcorn Candy Maker topogram: Unremarkable. Lung bases: Patchy solid and peripherally groundglass opacities at the lung bases new from prior. More extensive dependent consolidation likely atelectasis. Small left pleural effusion. Mild multichamber enlargement of the heart. Intraventricular blood pool is less dense and adjacent myocardium suggesting anemia. Aortic valve and coronary artery calcification. Liver: Normal morphology. Density consistent with hepatic steatosis. Biliary: No gross biliary ductal dilatation allowing for noncontrast technique. Hyperdensity in the gallbladder possibly vicarious excretion of prior contrast or gallbladder sludge. Mild gallbladder wall thickening or para cholecystic fluid. No inflammatory change. Gallbladder is physiologically distended. Pancreas: Moderate parenchymal atrophy. Spleen: Normal noncontrast appearance. Adrenal glands: Multiple surgical clips noted in the left suprarenal fossa. Nodular thickening of the right adrenal gland. Kidneys and ureters: Well-defined hypodensity at the upper pole the left kidney, likely cyst. No nephrolithiasis. Nonspecific perinephric fat stranding. No hydronephrosis. Ureters normal. Bladder: Decompressed with a Reyes catheter. Suggestion of bladder wall thickening. Pelvic organs: Prostate and seminal vesicles normal. Bowel: Large stool burden in the rectum. Moderate stool burden and the remainder of the normal caliber colon. The appendix is normal. No bowel obstruction. Peritoneal cavity: No free fluid or intraperitoneal gas. Extensive high density stranding in the retroperitoneum primarily on the left and in the extraperitoneal pelvis. This emanates from the enlarged left psoas muscle which contains a heterogeneous collection consistent with acute hematoma. The presence of a layering fluid fluid level is consistent with a hematocrit level. The hematoma measures up to 9 cm in maximal transverse dimension. This does not extend beyond the inguinal canal. Mild involvement of the left iliacus muscle. Lymph nodes: No gross lymphadenopathy allowing for noncontrast technique. Vasculature: Atherosclerosis of the normal caliber abdominal aorta. A left common femoral venous catheter is in place terminating in the left external iliac vein. Intravascular location is difficult to confirm without intravenous contrast. Abdominal wall: Mild body wall edema. Musculoskeletal: Degenerative changes of the spine. IMPRESSION: 1. Moderate left retroperitoneal hematoma emanating from the left iliopsoas muscle. 9 cm intramuscular hematoma in the left psoas. Trace retroperitoneal hemorrhage. 2. A hematocrit level within the hematoma suggests coagulopathy or anticoagulation. 3. Left common femoral venous catheter. This appears to be intravascular but the location of the terminus is difficult to confidently confirm without intravenous contrast. 4. Nodular opacities at the lung bases with peripheral groundglass. This can be seen in the setting of hemorrhagic metastases or angioinvasive aspergillosis among other etiologies. Correlate for immunocompromised status. 5. Anemia. The report will be called/faxed according to standard departmental protocol. Electronically signed by: Pino Hood M.D. 06/01/2017 12:15 PM Dictated Date/Time: 06/01/2017 12:06 PM
[2017-06-01] MEDS ORDERED: ~HEPARIN DRIP~STOP ORDER SCH (12:30)
[2017-06-01] MEDS ORDERED: BISACODYL 10 MG SUPP PR PRN (13:15)
--- NOTE | 2017-06-01 13:23 | Progress Note ---
Medicine Progress Note Date & Time of Visit: Jun 01, 2017 at 13:15. Subjective seen resting in bed, comfortable oriented x 3, alert, answers all questions appropriately denies abdominal/back/inguinal pain denies chest pain, dyspnea, dizziness, nausea no cough, hemoptysis no other symptoms Objective Last 8 Hrs Date Time Temp Pulse Resp B/P (MAP) Pulse Ox O2 Delivery O2 Flow Rate FiO2 06/01/17 12:00 Nasal Cannula 2.0 06/01/17 11:33 36.9 76 18 111/69 (83) 98 Nasal Cannula 2.0 06/01/17 10:50 92 98 06/01/17 07:45 Nasal Cannula 2.0 06/01/17 07:30 37.0 88 16 127/76 (93) 98 Nasal Cannula 2.0 Physical Exam: General- oriented x 3, not in distress, speaks in sentences with no effort Lungs- clear BS bilaterally, no rales/wheezes Heart- irregular rhythm; no murmur, normal rate Abdomen- normal bowel sounds, soft, nontender left fem cath in place: no hematoma, edema, warmth, tenderness Extremities- trace pretibial edema, no calf tenderness Neuro- alert, oriented x 1;no gross focal deficits Skin- warm & dry Laboratory Results: Last 24 Hours Test 05/31/17 14:21 05/31/17 15:52 05/31/17 20:44 06/01/17 07:08 White Blood Count 9.89 K/uL Red Blood Count 2.70 M/uL Hemoglobin 7.4 g/dL Hematocrit 22.4 % Mean Corpuscular Volume 83.0 fL Mean Corpuscular Hemoglobin 27.4 pg Mean Corpuscular Hemoglobin Concent 33.0 g/dl RDW Standard Deviation 41.8 fL RDW Coefficient of Variation 13.9 % Platelet Count 188 K/uL Mean Platelet Volume 9.3 fL Nucleated RBC Absolute Count (auto) 0.06 K/uL Nucleated Red Blood Cells % 0.6 % Bedside Glucose 255 mg/dl 175 mg/dl 141 mg/dl Test 06/01/17 07:28 06/01/17 10:55 White Blood Count 10.98 K/uL Red Blood Count 2.51 M/uL Hemoglobin 7.0 g/dL Hematocrit 20.8 % Mean Corpuscular Volume 82.9 fL Mean Corpuscular Hemoglobin 27.9 pg Mean Corpuscular Hemoglobin Concent 33.7 g/dl RDW Standard Deviation 41.5 fL RDW Coefficient of Variation 13.8 % Platelet Count 203 K/uL Mean Platelet Volume 8.9 fL Nucleated RBC Absolute Count (auto) 0.07 K/uL Nucleated Red Blood Cells % 0.7 % Activated Partial Thromboplast Time 41.2 SECONDS Partial Thromboplastin Ratio 1.6 Sodium Level 140 mmol/L Potassium Level 4.4 mmol/L Chloride Level 104 mmol/L Carbon Dioxide Level 28 mmol/L Anion Gap 8.0 mmol/L Blood Urea Nitrogen 53 mg/dl Creatinine 3.25 mg/dl Est Creatinine Clear Calc Drug Dose 28.3 ml/min Estimated GFR () 22.2 Estimated GFR (Non- 19.2 BUN/Creatinine Ratio 16.4 Random Glucose 107 mg/dl Calcium Level 8.6 mg/dl Iron Level 51 mcg/dl Total Iron Binding Capacity 248 mcg/dl Transferrin 184 mg/dl Transferrin % Saturation 20 % Bedside Glucose 179 mg/dl Assessment & Plan 62m with hx of chf ef 35-40%, CAD, DM, HTN presenting with shortness of breath. LEFT RETROPERITONEAL/ILIOPSOAS HEMORRHAGE - s/p Left Fem HD cath placement 05/29/17 - Hg 7.2 to 7.0 - STOP heparin, warfarin, aspirin - discussed with Dr. Nunez Landscaping Supervisor awaiting recommendations ANEMIA likely from Acute blood loss from hematoma, Kidney disease - 2 units PRBC ordered - repeat Hg at 6pm - Procrit given yesterday - monitor ACUTE HYPOXIC RESPIRATORY FAILURE SECONDARY TO: - remains on 2 L of NC afebrile INFLUENZA INFECTION - completed Tamiflu BILATERAL PNEUMONIA - completed 7 days Cefepime + Doxy POSSIBLE ACUTE ON CHRONIC CHF EXACERBATION - s/p IV Lasix held for now due to Acute Renal Failure on CKD ABNORMAL CT CHEST - (+) pulmonary nodules, possible Aspergillosis vs Mets? - will consult Pulmonary ACUTE RENAL FAILURE ON CKD 4 - s/p IV Lasix given intermittent IV NSS - crea increased to 4s (+) altered mental status likely from Uremia, resolved - received 3 HDs so far mental status back to baseline crea 3.2 Nephrology on board - monitor POSSIBLE ASTHMA EXACERBATION - possible underlying ARPIT - on Nebs Prednisone 40mg po--> taper to 20mg daily A FIB IN RVR rate controlled on Amiodarone PO, Carvedilol d/c Heparin, Warfarin, Aspirin due to Hematoma HHS, DM 2 a1c 9.5 transitioned to Insulin Lantus Hypertension d/c Amlodipine continue Carvedilol Nonocclusive CAD hold ASA for hematoma Chronic thrombocytopenia. Plt 130 to 85--> 136 monitor DVT PROPHYLAXIS scds d/c heparin as patient has hematoma , see #1 diagnosis Disposition pending will need PT/OT may need Rehab/SNF upon discharge Current Inpatient Medications: Current Inpatient Medications Medications (Trade) Dose Ordered Sig/Larry Route Start Time Stop Time Status Last Admin Dose Admin Acetaminophen (Tylenol Tab) 650 mg Q4H PRN PO 05/23/17 04:30 06/22/17 04:29 05/28/17 18:03 650 MG Nitroglycerin (Nitrostat Tab) 0.4 mg UD PRN SL 05/23/17 04:30 06/22/17 04:29 Hydromorphone HCl (Dilaudid Inj) 0.5 mg Q3H PRN IV 05/23/17 04:30 06/06/17 04:29 Tramadol HCl (Ultram Tab) not relieved ... Q6H PRN PO 05/23/17 04:30 06/22/17 04:29 Carvedilol (Coreg Tab) 12.5 mg BID PO 05/23/17 09:00 06/22/17 08:59 06/01/17 08:32 12.5 MG Duloxetine HCl (Cymbalta Cap) 60 mg DAILY PO 05/23/17 09:00 06/22/17 08:59 06/01/17 08:32 60 MG Pantoprazole Sodium (Protonix Tab) 40 mg QAM PO 05/23/17 09:00 06/22/17 08:59 06/01/17 08:32 40 MG Rosuvastatin Calcium (Crestor Tab) 40 mg HS PO 05/23/17 21:00 06/22/17 20:59 05/31/17 21:23 40 MG Prochlorperazine Edisylate 5 mg/ Syringe 5 ml @ 5 mls/min Q6H PRN IV 05/23/17 04:30 06/22/17 04:29 05/25/17 09:28 5 MLS/MIN Guaifenesin (Mucinex Contr Rel Tab) 600 mg BID PO 05/23/17 21:00 06/22/17 20:59 06/01/17 08:32 600 MG Ipratropium [place] (Atrovent 0.02% 0.5MG/2.5ML Neb) 0.5 mg Q4H PRN INH 05/23/17 05:15 06/22/17 05:14 05/25/17 00:20 0.5 MG Levalbuterol (Xopenex 1.25MG/ 0.5ML Neb) 1.25 mg Q4H PRN INH 05/23/17 05:15 06/22/17 05:14 05/25/17 00:20 1.25 MG Furosemide 40 mg/ Syringe 4 ml @ 4 mls/min DAILY IV 05/23/17 09:00 06/22/17 08:59 Future Hold 05/23/17 10:34 4 MLS/MIN Miscellaneous Information (Consult Glycemic Management Pharmacy) 1 ea UD N/A 05/23/17 09:48 06/22/17 09:47 Glucose (Glucose 40% Gel) 15-30 GRAMS 15 GRAMS... UD PRN PO 05/24/17 08:30 06/23/17 08:29 Glucose (Glucose Chew Tab) 4-8 Tablets 4 Tabl... UD PRN PO 05/24/17 08:30 06/23/17 08:29 Dextrose (Dextrose 50% 50ML Syringe) 25-50ML OF 50% DW IV FOR... UD PRN IV 05/24/17 08:30 06/23/17 08:29 05/27/17 23:29 25 ML Glucagon (Glucagon Inj) 1 mg UD PRN SQ 05/24/17 08:30 06/23/17 08:29 Cefepime HCl (Consult) 1 ea UD PRN N/A 05/26/17 08:45 06/25/17 08:44 Amiodarone HCl (Cordarone Tab) 200 mg TIDM PO 05/27/17 11:30 06/26/17 11:29 06/01/17 11:36 200 MG Gabapentin (Neurontin Cap) 300 mg HS PO 05/28/17 21:00 06/27/17 20:59 05/31/17 21:23 300 MG Polyethylene (Miralax Powder Packet) 17 gm DAILY PO 05/29/17 09:00 06/28/17 08:59 06/01/17 09:23 17 GM Docusate Sodium (coLACE CAP) 100 mg BID PO 05/29/17 09:00 06/28/17 08:59 06/01/17 08:32 100 MG Insulin Aspart (novoLOG ASPART) SLIDING SCALE ACHS SC 05/29/17 12:00 06/28/17 11:59 06/01/17 12:17 12 UNITS Insulin Glargine (Lantus Solostar Pen) 15 units BID SC 06/01/17 09:00 07/01/17 08:59 06/01/17 08:35 15 UNITS Prednisone (PredniSONE TAB) 20 mg QD PO 06/02/17 10:00 06/29/17 09:59 UNV
[2017-06-01] MEDS ORDERED: DOCUSATE SODIUM/SENNA 50/8.6MG TAB PO ONE (13:30)
--- NOTE | 2017-06-01 15:20 | Cardiology Follow-Up ---
Subjective General Date of Service: Jun 01, 2017. Chief Complaint: follow up shortness of breath Pt evaluation today including: conversation w/ patient, physical exam, chart review, lab review, review of studies, conversation w/ mgmt consultant, review of inpatient medication list History of Present Illness The patient is a 62 year old male seen in follow-up. Patient mental status unchanged. Diagnosed with left sided retroperitoneal bleed emanating from iliopsoas hematoma. Anticoagulation being placed on hold. Allergies Coded Allergies: No Known Allergies (Verified , 05/23/17) Social History Smoking Status: Never Smoker Hx Tobacco Use In Past Year?: No Hx Alcohol Use - Type And Amou: No Hx Substance Use - Type And Am: No Problem List Medical Problems: (1) CHF (congestive heart failure) Status: Acute (2) CHF (congestive heart failure) Status: Acute (3) Diffuse abdominal pain Status: Acute (4) Elevated troponin Status: Acute (5) Precordial chest pain Status: Acute (6) Renal cyst Status: Acute (7) Shortness of breath Status: Acute (8) Shortness of breath Status: Acute Review of Systems Respiratory: + cough, + shortness of breath, + dyspnea on exertion, No sputum, No wheezing, No dyspnea at rest, No hemoptysis Cardiac: No chest pain, No orthopnea, No PND, No edema, No claudication, No palpitations Physical Exam Vital Signs Last Vital Signs Documentation Date Time Temp Pulse Resp B/P (MAP) Pulse Ox O2 Delivery O2 Flow Rate FiO2 06/01/17 14:55 36.7 94 18 117/79 (92) 99 Nasal Cannula 2.0 05/29/17 09:42 40 Physical Exam Constitutional: Level of Distress: NAD, acutely ill Head: normocephalic ENMT: TMs normal Neck: supple, trachea midline Lungs: Auscultation: expiratory wheezing Cardiovascular: Heart Auscultation: irregular rate rhythm, pertinent finding (/6 SM) Abdomen: Inspection & Palpation: soft, non-distended Extremities: no edema, pertinent finding (mild left groin ecchymosis) Neurologic: Gait & Station: pertinent finding (confuse, tremor) Assessment and Plan Assessment and Plan Impression: 1. Acute influenza A with B/L pneumonia -CT demonstrates possible aspergillosis versus metastatic disease 2. Left sided retroperitoneal hematoma 3. Systolic heart failure, history of left bundle branch block, nonischemic cardiomyopathy, LVEF 30-40% March 2017 -patient appears compensated 4. Acute kidney injury (nonoliguric) on stage III chronic kidney disease, 5. Atrial fibrillation with borderline rate control - new onset - IV heparin restarted 6. Encephalopathy / delirium, perhaps due to uremia, acute influenza, +/- Tamiflu - mental status improving 7. Anemia - Hgb trending down to 7.0gm/dL today Plan: Anticoagulation will be placed on hold. Transfuse 2 units packed red blood cells. ECG today. Follow telemetry. Continue oral amiodarone. Monitor serial H/H. Pulmonary medicine consultation regarding abnormal CT findings. Laboratory Results Last 24 Hours Test 05/31/17 15:52 05/31/17 20:44 06/01/17 07:08 06/01/17 07:28 Bedside Glucose 255 mg/dl 175 mg/dl 141 mg/dl White Blood Count 10.98 K/uL Red Blood Count 2.51 M/uL Hemoglobin 7.0 g/dL Hematocrit 20.8 % Mean Corpuscular Volume 82.9 fL Mean Corpuscular Hemoglobin 27.9 pg Mean Corpuscular Hemoglobin Concent 33.7 g/dl RDW Standard Deviation 41.5 fL RDW Coefficient of Variation 13.8 % Platelet Count 203 K/uL Mean Platelet Volume 8.9 fL Nucleated RBC Absolute Count (auto) 0.07 K/uL Nucleated Red Blood Cells % 0.7 % Activated Partial Thromboplast Time 41.2 SECONDS Partial Thromboplastin Ratio 1.6 Sodium Level 140 mmol/L Potassium Level 4.4 mmol/L Chloride Level 104 mmol/L Carbon Dioxide Level 28 mmol/L Anion Gap 8.0 mmol/L Blood Urea Nitrogen 53 mg/dl Creatinine 3.25 mg/dl Est Creatinine Clear Calc Drug Dose 28.3 ml/min Estimated GFR () 22.2 Estimated GFR (Non- 19.2 BUN/Creatinine Ratio 16.4 Random Glucose 107 mg/dl Calcium Level 8.6 mg/dl Iron Level 51 mcg/dl Total Iron Binding Capacity 248 mcg/dl Transferrin 184 mg/dl Transferrin % Saturation 20 % Test 06/01/17 10:55 Bedside Glucose 179 mg/dl
[2017-06-01] MEDS ORDERED: WARFARIN SOD 5 MG TAB PO SCH (16:00)
--- NOTE | 2017-06-01 17:08 | Pulmonary Consultation ---
History General Date of Service: Jun 01, 2017. Stated Complaint: Respiratory Failure, Acute, abnormal CT scan HPI The patient is a 62 year old male who presents to [facility] with complaints of Respiratory Failure, Acute. The patient's primary care provider is Mabel Butts M.D.. Patient was admitted 05/23/2017 for increasing shortness of breath with pending respiratory insufficiency/failure requiring high-flow oxygen and BiPAP as well as Lasix and a diagnosis made via serum studies of influenza A, treated with Tamiflu. His hospital course has been complicated with acute on chronic renal failure and associated retroperitoneal status iliopsoas hematoma after an HD catheter placement on 05/29/2017 with associated anemia. He does have a PmHx: Significant for obstructive sleep apnea, cardiomyopathy, chronic kidney disease , hypertension, diabetes, mild aortic stenosis and left bundle branch block. A CT of the abdomen was obtained earlier today and noted bilateral infiltrative processes with some ground-glass changes and a small left-sided pleural effusion. During my interview with the patient I did take him off oxygen and throughout our interview he saturated between 96 to 97% on room air. He denied any shortness of breath, pleurisy, classic cardiac chest pain, productive sputum, hemoptysis, fever or chills. Spirometry 03/24/2017 FEV1: 3.10/99 % FVC: 4.05/102 % Bronchodilator response: No significant response noted Echocardiogram 03/21/2017 LV: EF=35-40%, moderate global hypokinesis, moderate LVH RV: TAPE >1.5cm AV: Moderate aortic stenosis is suspected Grade 2 pseudonormalization pattern Work-up WBC 11 K Hematocrit 21 ESR 03/22/2017 17 ABG (03/21/17) 7.41/45/83/28 (2L) D-Dimer (03/21/17) >>720 BUN/Cr: 53/3.25 Troponin (05/27/17) >0.392 Procalcitonin (05/25/17) >>4.00 Influenza A (05/23/17) Positive CT thorax 04/18/2017 Cardiomegaly with mild interlobular septal thickening Trace pleural effusions bilaterally No parenchymal process noted CT abdomen 06/01/2017 Patchy solid peripheral ground-glass opacities at the bases More extensive infiltrative process possibly atelectasis Small left-sided pleural effusion PmHx: 1. Sleep apnea--did not tolerate treatment with CPAP//treated with oxygen but self D/C 2. Coronary artery disease 3. Chronic kidney disease stage III 4. Diabetes 5. Hyperlipidemia 6. Hypertension 7. Nonischemic cardiomyopathy 8. Hiatal hernia 9. Left bundle branch block 10. Mild aortic stenosis PsHx: 1. Adrenal gland surgery 2. Cardiac catheterization x3 Social Tobacco: Never smoker Smokeless tobacco: Chew tobacco for 55 years Family history Brother--asthma Sister--diabetes Brother--congestive heart failure Review of Systems Constitutional: reports: weakness Eyes: reports: no symptoms ENT: reports: no symptoms Cardiovascular: reports: no symptoms Respiratory: reports: as stated in HPI Gastrointestinal: reports: no symptoms Genitourinary - Male: reports: no symptoms Musculoskeletal: reports: other (Some mild myalgias/aches associated with previous HD catheter placement) Integumentary: reports: no symptoms Neurologic: reports: no symptoms Psychiatric: reports: no symptoms Endocrine: no symptoms Hematologic / Lymphatic: no symptoms Allergic / Immunologic: no symptoms Past Medical History Past Medical History: Please refer to HPI Past Surgical History: Please refer to HPI Family History Diabetes mellitus SISTER BROTHER FH: CHF (congestive heart failure) MOTHER Hypertension SON Please refer to HPI Social History Please refer to HPI Hx Tobacco Use In Past Year?: No Smoking Status: Never Smoker Marital status: Housing status: lives with significant other Occupational Status: retired Allergies Coded Allergies: No Known Allergies (Verified , 05/23/17) Current Medications Reported Home Medications Medications Dose Route/Sig Max Daily Dose Days Date Category Dose Instructions Lasix (Furosemide) 20 Mg Tab 20 Mg PO QAM 05/23/17 Reported Norvasc (Amlodipine Besylate) 10 Mg Tab 10 Mg PO DAILY 05/23/17 Reported Breo Ellipta (Fluticasone Furoate-Vilanterol) 1 Inh Inh 1 Puff PO DAILY 04/23/17 Reported Cymbalta (Duloxetine Hcl) 60 Mg Cap 60 Mg PO DAILY 04/23/17 Reported Oxygen Gas 2 Liters NA HS 04/23/17 Reported Protonix (Pantoprazole Sodium) 40 Mg Tab 40 Mg PO QAM 11/17/16 Reported Isordil (Isosorbide Dinitrate) 20 Mg Tab 20 Mg PO TID 10/06/16 Reported Enalapril Maleate 20 Mg Tab 1 Tab PO NOON 06/19/16 Reported Ventolin Hfa (Albuterol) 60 Puffs/5400 Mcg Aers 2 Puffs INH Q4H PRN 06/19/16 Reported Aspirin Ec (Aspirin) 81 Mg Tab 81 Mg PO QAM 06/19/16 Reported Vitamin D3 (Cholecalciferol) 2,000 Unit Tab 2,000 Inter.unit PO QAM 06/19/16 Reported Lantus Solostar (Insulin Glargine) 100 Unit/Ml Inj 45 Units SC HS 06/19/16 Reported Carvedilol 25 Mg Tab 12.5 Mg PO BID 06/19/16 Reported Crestor (Rosuvastatin Calcium) 40 Mg Tab 40 Mg PO HS 06/19/16 Reported Neurontin (Gabapentin) 300 Mg Cap 300 Mg PO QID 06/19/16 Reported Novolog Flexpen (Insulin Aspart) 100 Units/Ml Inj 14 Units SQ UD 06/19/16 Reported with lunch and dinner Novolog Flexpen (Insulin Aspart) 100 Units/Ml Inj 7 Units SQ QAM 06/19/16 Reported Physical Physical Exam Vital Signs: Date Time Temp Pulse Resp B/P (MAP) Pulse Ox O2 Delivery O2 Flow Rate FiO2 06/01/17 16:30 37.2 101 18 138/86 99 2.0 06/01/17 16:00 36.8 99 18 122/84 99 2.0 06/01/17 15:50 Nasal Cannula 2.0 06/01/17 15:45 36.6 99 18 116/85 96 2.0 06/01/17 15:29 36.8 80 18 125/82 99 2.0 06/01/17 14:55 36.7 94 18 117/79 (92) 99 Nasal Cannula 2.0 06/01/17 14:34 92 18 134/84 (101) 92 Nasal Cannula 2.0 06/01/17 14:15 92 18 112/85 (94) 96 Nasal Cannula 2.0 06/01/17 13:55 86 18 134/57 (82) 95 Nasal Cannula 2.0 06/01/17 12:00 Nasal Cannula 2.0 06/01/17 11:33 36.9 76 18 111/69 (83) 98 Nasal Cannula 2.0 06/01/17 10:50 92 98 06/01/17 07:45 Nasal Cannula 2.0 06/01/17 07:30 37.0 88 16 127/76 (93) 98 Nasal Cannula 2.0 06/01/17 04:00 Nasal Cannula 2.0 06/01/17 03:47 36.9 76 18 118/75 (89) 92 Nasal Cannula 2.0 06/01/17 00:00 Nasal Cannula 2.0 05/31/17 23:07 36.9 92 18 120/83 (95) 99 Nasal Cannula 2.0 05/31/17 20:00 Room Air 05/31/17 19:05 36.4 106 18 111/77 (88) 97 Room Air 05/31/17 17:24 36.6 93 23 96 General Appearance: NO APPARENT DISTRESS Head: NORMOCEPHALIC, ATRAUMATIC Eyes: PERRLA, NO DISCHARGE, EOMI, SCLERAE NORMAL ENT: NORMAL EAR EXAM, NORMAL NASAL EXAM, NORMAL MOUTH EXAM, other (Mallampati 2 ) Neck: NORMAL RANGE OF MOTION, NO TENDERNESS, TRACHEA MIDLINE, NO STRIDOR Respiratory: other (Minimal rhonchi at the bases bilaterally left greater than right) Cardiovasular: REGULAR RATE/RHYTHM, NORMAL S1S2, other (2/6 systolic murmur best appreciated right upper sternal border) Abdomen: NON TENDER, NORMAL BOWEL SOUNDS, NO REBOUND, NO MASSES Genitourinary - Male: EXTERNAL GENITALIA NORMAL Back: NORMAL INSPECTION, NO MIDLINE TENDERNESS, NO CVA TENDERNESS Upper Extremities: NO EDEMA, NO DEFORMITY, NORMAL ROM Lower Extremities: other (Healing HC catheter placements with 6 stitch in the right groin region) Pulses: carotid (R) (1+), carotid (L) (1+), dorsalis pedis (R) (1+), dorsalis pedis (L) (1+) Neuro: ALERT, ORIENTED x 3, NORMAL MOTOR EXAM, NORMAL SENSATION, NORMAL CEREBELLAR EXAM Reflexes: biceps (R) (2+), bicpes (L) (2+), brachioradialis (R) (2+), brachioradialis (L) (2+), patellar (L) Babinski Testing: right (downgoing), left (downgoing) Psychiatric: NORMAL AFFECT, NO SUICIDAL IDEATION Diagnostics Labs Results Past 24 Hours Test 05/31/17 20:44 06/01/17 07:08 06/01/17 07:28 06/01/17 10:55 Range/Units Bedside Glucose 175 141 179 70-99 mg/dl White Blood Count 10.98 4.8-10.8 K/uL Red Blood Count 2.51 4.7-6.1 M/uL Hemoglobin 7.0 14.0-18.0 g/dL Hematocrit 20.8 42-52 % Mean Corpuscular Volume 82.9 80-100 fL Mean Corpuscular Hemoglobin 27.9 25-34 pg Mean Corpuscular Hemoglobin Concent 33.7 32-36 g/dl RDW Standard Deviation 41.5 36.4-46.3 fL RDW Coefficient of Variation 13.8 11.5-14.5 % Platelet Count 203 130-400 K/uL Mean Platelet Volume 8.9 7.4-10.4 fL Nucleated RBC Absolute Count (auto) 0.07 0-0 K/uL Nucleated Red Blood Cells % 0.7 % Activated Partial Thromboplast Time 41.2 21.0-31.0 SECONDS Partial Thromboplastin Ratio 1.6 Sodium Level 140 136-145 mmol/L Potassium Level 4.4 3.5-5.1 mmol/L Chloride Level 104 98-107 mmol/L Carbon Dioxide Level 28 21-32 mmol/L Anion Gap 8.0 3-11 mmol/L Blood Urea Nitrogen 53 7-18 mg/dl Creatinine 3.25 0.60-1.40 mg/dl Est Creatinine Clear Calc Drug Dose 28.3 ml/min Estimated GFR () 22.2 Estimated GFR (Non- 19.2 BUN/Creatinine Ratio 16.4 10-20 Random Glucose 107 70-99 mg/dl Calcium Level 8.6 8.5-10.1 mg/dl Iron Level 51 35-175 mcg/dl Total Iron Binding Capacity 248 250-450 mcg/dl Transferrin 184 200-360 mg/dl Transferrin % Saturation 20 20-50 % Diagnostic Radiology Please refer to HPI EKG Rate 106, irregular rate and rhythm/atrial fibrillation/left bundle branch block Impression Assessment and Plan 62-year-old gentleman admitted respiratory insufficiency/hypoxia, abnormal CT scan and history of sleep apnea: 1. Hypoxia: Patient's hypoxia most likely a combination of influenza a, CHF and chronic renal insufficiency. At this time I did take the patient off oxygen during our evaluation and he was notably saturating at 96-97% during our conversation. It appears at this time the patient is notably progressing. 2. Abnormal CT scan: Patient's recent CT of the abdomen today does show some ground-glass opacifications with some atelectatic changes. I did compare this to previous CT of the thorax performed 04/18/2017 and noted these were acute changes. At this time I do not believe the patient is showing signs of disseminated fungal infection or even recurrent possible pneumonia viral and/or bacterial. I suggest we placed him on incentive spirometer evaluate his progress. We can repeat the CT in approximately 6-8 weeks for further evaluation and possible resolution. 3. Sleep apnea: Patient does have a history of sleep apnea we discussed how oxygen supplementation is not a proper treatment for notable obstructive sleep apnea. The patient has agreed to perform a CPAP trial tonight. I will start the CPAP at 8 cm of water pressure with 2 liters of nasal cannula oxygen support.
--- NOTE | 2017-06-01 21:01 | Critical Care Progress Note ---
Critical Care Progress Note Date of Service Jun 01, 2017. Critical Care Progress Note I was contacted regarding an indwelling left temporary hemodialysis catheter in the setting of retroperitoneal bleeding. Subjective: Patient denies complaints, mild dyspnea with exertion, frustrated that he remains in the hospital. Refuses to use a bedpan wants to sit on the commode. Objective: Vital signs reviewed, Gen. alert and oriented 3 normocephalic atraumatic, Abdomen soft, nondistended, nontender : Reyes catheter present Flank: No ecchymoses, mild tenderness with palpation of the left flank. Extremities no ecchymoses no purulence at left groin temporary HD catheter site. Assessment: Improving renal function, history of acute kidney injury Retroperitoneal bleeding History of heparin use secondary to atrial fibrillation Plan: I reviewed the prior medical record. I feel it is most prudent to remove the hemodialysis catheter at this time. If the patient requires another course of dialysis we can place a temporary catheter in a internal jugular vessel. I would not reverse the patient's anticoagulation with protamine I would allow the heparin to naturally clear. Would continue to clinically observe for worsening bleeding. This plan is discussed with the hospitalist Dr. Zamora
[2017-06-01] MEDS: GABAPENTIN 300 MG CAP PO SCH (21:48)
[2017-06-01] MEDS: ROSUVASTATIN CALCIUM 20 MG TAB PO SCH (22:00)
[2017-06-01 22:30] LABS: HEMATOCRIT 25.5 % (42-52); HEMOGLOBIN 8.6 g/dL (14.0-18.0)
[2017-06-02] VITALS (7 sets, daily range): BP systolic 122–138; BP diastolic 74–91; PULSE 85–115; TEMP 36.8–37.3; O2SAT 96–99
[2017-06-02 04:52] LABS: HEMOGLOBIN 8.7 g/dL (14.0-18.0); MEAN CORPUSCULAR HEMOGLOBIN 28.4 pg (25-34); MEAN CORPUSCULAR HGB CONC 33.5 g/dl (32-36); MEAN PLATELET VOLUME 8.7 fL (7.4-10.4); NUCLEATED RED BLOOD CELL ABS 0.06 K/uL (0-0); PLATELET COUNT 206 K/uL (130-400); RED CELL DISTRIBUTION WIDTH CV 14.4 % (11.5-14.5); RED CELL DISTRIBUTION WIDTH SD 44.2 fL (36.4-46.3); WHITE BLOOD COUNT 13.33 K/uL (4.8-10.8)
[2017-06-02 05:15] LABS: CALCIUM 8.6 mg/dl (8.5-10.1); CREATININE 3.5 mg/dl (0.60-1.40); POTASSIUM 4.8 mmol/L (3.5-5.1)
--- NOTE | 2017-06-02 06:50 | Nephrology Progress Note ---
Nephrology Progress Note Date of Service: Jun 02, 2017. Subjective 62 yo male with flu/afib rate controlled/atn who required dialysis for worsening mental status/tremors/uremia. pt mentally is better. had temporary dialysis catheter removed yesterday. has a significant hematoma. urinating well although creatinine trending back up. had a good bm last night. pt was transfused two units of blood yesterday. Objective Date Time Temp Pulse Resp B/P (MAP) Pulse Ox O2 Delivery O2 Flow Rate FiO2 06/02/17 04:00 Nasal Cannula 2.0 06/02/17 03:57 36.8 85 18 125/78 (94) 99 Nasal Cannula 2.0 06/02/17 00:00 Nasal Cannula 2.0 06/02/17 00:00 92 06/01/17 23:42 36.7 154 24 119/68 (85) 92 2.0 06/01/17 22:34 106 97 06/01/17 22:00 37.3 89 18 148/94 99 2.0 06/01/17 21:05 36.9 110 18 164/97 99 2.0 06/01/17 20:05 36.9 101 20 165/101 98 06/01/17 20:00 Room Air 06/01/17 19:35 36.8 103 18 147/104 99 2.0 06/01/17 19:05 37.1 103 18 114/83 99 2.0 06/01/17 18:50 37.3 103 18 119/64 97 2.0 06/01/17 18:32 37.1 97 18 117/79 97 2.0 06/01/17 17:43 36.9 98 18 130/78 99 2.0 06/01/17 17:00 37.0 98 18 126/91 99 2.0 06/01/17 16:30 37.2 101 18 138/86 99 2.0 06/01/17 16:00 36.8 99 18 122/84 99 2.0 06/01/17 15:50 Nasal Cannula 2.0 06/01/17 15:45 36.6 99 18 116/85 96 2.0 06/01/17 15:29 36.8 80 18 125/82 99 2.0 06/01/17 14:55 36.7 94 18 117/79 (92) 99 Nasal Cannula 2.0 06/01/17 14:34 92 18 134/84 (101) 92 Nasal Cannula 2.0 06/01/17 14:15 92 18 112/85 (94) 96 Nasal Cannula 2.0 06/01/17 13:55 86 18 134/57 (82) 95 Nasal Cannula 2.0 06/01/17 12:00 Nasal Cannula 2.0 06/01/17 11:33 36.9 76 18 111/69 (83) 98 Nasal Cannula 2.0 06/01/17 10:50 92 98 06/01/17 07:45 Nasal Cannula 2.0 06/01/17 07:30 37.0 88 16 127/76 (93) 98 Nasal Cannula 2.0 Physical Exam: General-aaox3 Eyes-no scleral icterus ENT-mmm Neck-supple Lungs-cta Heart-irregularly irregular Abdomen-bs+ s/nt/nd Extremities-no c/c/e Neuro-nonfocal Current Inpatient Medications Medications (Trade) Dose Ordered Sig/Larry Route Start Time Stop Time Status Last Admin Dose Admin Acetaminophen (Tylenol Tab) 650 mg Q4H PRN PO 05/23/17 04:30 06/22/17 04:29 05/28/17 18:03 650 MG Nitroglycerin (Nitrostat Tab) 0.4 mg UD PRN SL 05/23/17 04:30 06/22/17 04:29 Hydromorphone HCl (Dilaudid Inj) 0.5 mg Q3H PRN IV 05/23/17 04:30 06/06/17 04:29 Tramadol HCl (Ultram Tab) not relieved ... Q6H PRN PO 05/23/17 04:30 06/22/17 04:29 Carvedilol (Coreg Tab) 12.5 mg BID PO 05/23/17 09:00 06/22/17 08:59 06/01/17 21:48 12.5 MG Duloxetine HCl (Cymbalta Cap) 60 mg DAILY PO 05/23/17 09:00 06/22/17 08:59 06/01/17 08:32 60 MG Pantoprazole Sodium (Protonix Tab) 40 mg QAM PO 05/23/17 09:00 06/22/17 08:59 06/01/17 08:32 40 MG Rosuvastatin Calcium (Crestor Tab) 40 mg HS PO 05/23/17 21:00 06/22/17 20:59 06/01/17 22:00 40 MG Prochlorperazine Edisylate 5 mg/ Syringe 5 ml @ 5 mls/min Q6H PRN IV 05/23/17 04:30 06/22/17 04:29 05/25/17 09:28 5 MLS/MIN Guaifenesin (Mucinex Contr Rel Tab) 600 mg BID PO 05/23/17 21:00 06/22/17 20:59 06/01/17 21:48 600 MG Ipratropium Helper (Atrovent 0.02% 0.5MG/2.5ML Neb) 0.5 mg Q4H PRN INH 05/23/17 05:15 06/22/17 05:14 05/25/17 00:20 0.5 MG Levalbuterol (Xopenex 1.25MG/ 0.5ML Neb) 1.25 mg Q4H PRN INH 05/23/17 05:15 06/22/17 05:14 05/25/17 00:20 1.25 MG Furosemide 40 mg/ Syringe 4 ml @ 4 mls/min DAILY IV 05/23/17 09:00 06/22/17 08:59 Future Hold 05/23/17 10:34 4 MLS/MIN Miscellaneous Information (Consult Glycemic Management Pharmacy) 1 ea UD N/A 05/23/17 09:48 06/22/17 09:47 Glucose (Glucose 40% Gel) 15-30 GRAMS 15 GRAMS... UD PRN PO 05/24/17 08:30 06/23/17 08:29 Glucose (Glucose Chew Tab) 4-8 Tablets 4 Tabl... UD PRN PO 05/24/17 08:30 06/23/17 08:29 Dextrose (Dextrose 50% 50ML Syringe) 25-50ML OF 50% DW IV FOR... UD PRN IV 05/24/17 08:30 06/23/17 08:29 05/27/17 23:29 25 ML Glucagon (Glucagon Inj) 1 mg UD PRN SQ 05/24/17 08:30 06/23/17 08:29 Amiodarone HCl (Cordarone Tab) 200 mg TIDM PO 05/27/17 11:30 06/26/17 11:29 06/01/17 17:12 200 MG Gabapentin (Neurontin Cap) 300 mg HS PO 05/28/17 21:00 06/27/17 20:59 06/01/17 21:48 300 MG Polyethylene (Miralax Powder Packet) 17 gm DAILY PO 05/29/17 09:00 06/28/17 08:59 06/01/17 09:23 17 GM Insulin Aspart (novoLOG ASPART) SLIDING SCALE ACHS SC 05/29/17 12:00 06/28/17 11:59 06/01/17 21:44 4 UNITS Insulin Glargine (Lantus Solostar Pen) 15 units BID SC 06/01/17 09:00 07/01/17 08:59 06/01/17 21:47 15 UNITS Prednisone (PredniSONE TAB) 20 mg QD@1000 PO 06/02/17 10:00 07/02/17 09:59 Senna/Docusate Sodium (Senokot S Tab) 1 tab QAM PO 06/02/17 09:00 07/02/17 08:59 Bisacodyl (Dulcolax Supp) 10 mg DAILY PRN [place] 06/01/17 13:15 07/01/17 13:14 Last 24 Hours Test 06/01/17 07:08 06/01/17 07:28 06/01/17 10:55 06/01/17 16:39 Bedside Glucose 141 mg/dl 179 mg/dl 64 mg/dl White Blood Count 10.98 K/uL Red Blood Count 2.51 M/uL Hemoglobin 7.0 g/dL Hematocrit 20.8 % Mean Corpuscular Volume 82.9 fL Mean Corpuscular Hemoglobin 27.9 pg Mean Corpuscular Hemoglobin Concent 33.7 g/dl RDW Standard Deviation 41.5 fL RDW Coefficient of Variation 13.8 % Platelet Count 203 K/uL Mean Platelet Volume 8.9 fL Nucleated RBC Absolute Count (auto) 0.07 K/uL Nucleated Red Blood Cells % 0.7 % Activated Partial Thromboplast Time 41.2 SECONDS Partial Thromboplastin Ratio 1.6 Sodium Level 140 mmol/L Potassium Level 4.4 mmol/L Chloride Level 104 mmol/L Carbon Dioxide Level 28 mmol/L Anion Gap 8.0 mmol/L Blood Urea Nitrogen 53 mg/dl Creatinine 3.25 mg/dl Est Creatinine Clear Calc Drug Dose 28.3 ml/min Estimated GFR () 22.2 Estimated GFR (Non- 19.2 BUN/Creatinine Ratio 16.4 Random Glucose 107 mg/dl Calcium Level 8.6 mg/dl Iron Level 51 mcg/dl Total Iron Binding Capacity 248 mcg/dl Transferrin 184 mg/dl Transferrin % Saturation 20 % Test 06/01/17 17:04 06/01/17 20:54 06/01/17 22:20 06/02/17 04:39 Bedside Glucose 125 mg/dl 196 mg/dl Hemoglobin 8.6 g/dL 8.7 g/dL Hematocrit 25.5 % 26.0 % White Blood Count 13.33 K/uL Red Blood Count 3.06 M/uL Mean Corpuscular Volume 85.0 fL Mean Corpuscular Hemoglobin 28.4 pg Mean Corpuscular Hemoglobin Concent 33.5 g/dl RDW Standard Deviation 44.2 fL RDW Coefficient of Variation 14.4 % Platelet Count 206 K/uL Mean Platelet Volume 8.7 fL Nucleated RBC Absolute Count (auto) 0.06 K/uL Nucleated Red Blood Cells % 0.4 % Activated Partial Thromboplast Time 22.0 SECONDS Partial Thromboplastin Ratio 0.8 Sodium Level 140 mmol/L Potassium Level 4.8 mmol/L Chloride Level 106 mmol/L Carbon Dioxide Level 28 mmol/L Anion Gap 6.0 mmol/L Blood Urea Nitrogen 59 mg/dl Creatinine 3.50 mg/dl Est Creatinine Clear Calc Drug Dose 26.2 ml/min Estimated GFR () 20.3 Estimated GFR (Non- 17.5 BUN/Creatinine Ratio 16.8 Random Glucose 98 mg/dl Calcium Level 8.6 mg/dl Assessment & Plan [id number]-oliguric-urinating well-pts mental status improved. temporary dialysis catheter removed. question if we want him bedbound with the hematoma or not. defer to primary hospitalist. would prefer to remove the cuadra and have him urinate on his own and continue to minimize infectious risks. creatinine continues to trend up. did become confused with bun over 100 and creatinine in the 4s. will see if he still needs dialysis with creatinine trending up. perhaps would consider doing a tunneled dialysis catheter if he still needs dialysis.
[2017-06-02] MEDS: CARVEDILOL 12.5 MG TAB PO SCH ×2 (07:55→20:44)
[2017-06-02] MEDS: DULOXETINE HCL 60 MG CAP PO SCH (07:55)
[2017-06-02] MEDS: AMIODARONE 200 MG TAB PO SCH ×3 (07:55→20:46)
[2017-06-02] MEDS: GUAIFENESIN 600 MG TABCR PO SCH ×2 (07:55→20:45)
[2017-06-02] MEDS: PANTOprazole SOD 40 MG TAB PO SCH (07:55)
[2017-06-02] MEDS: DOCUSATE SODIUM/SENNA 50/8.6MG TAB PO SCH (07:55)
[2017-06-02] MEDS: POLYETHYLENE (MIRALAX) 17 GM PACK PO SCH (07:56)
[2017-06-02] MEDS: INSULIN ASPART 100 UNITS/ML 3 ML PEN SC SCH ×4 (08:52→20:50)
[2017-06-02] MEDS: INSULIN GLARGINE SOLOSTAR 100 UNITS/ML 3 ML PEN SC SCH ×2 (08:52→20:51)
--- NOTE | 2017-06-02 11:45 | Pharmacy Progress Note ---
Pharmacy Glycemic Short Note 2 Date of Service Jun 02, 2017. OUTPATIENT ANTIDIABETIC REGIMEN: * Novolog with meals - 7 units breakfast, 14 units lunch and dinner * Lantus 45 units HS * A1c = 9.2 % 05/23/17, although this result is likely somewhat unreliable d/t CKD ASSESSMENT: * Patient has been requiring ~ 60 units of insulin per day for adequate control * 30 units of basal insulin with Lantus (15 units SQ BID) * 30 units of prandial/correctional insulin with NovoLog per CF/CR of 03/23 respectively * BSGs 06/01: 141, 179, 125, 195 * BSGs 06/02: 88 * Goal BSG range is <150 mg/dl to promote wound healing. * AM fasting BSG is slightly below goal range at 88mg/dl today. Decrease in basal insulin is warranted. Prednisone dosing decreased from 40mg daily to 20mg daily today. Will empirically reduce NovoLog parameters (CF/CR) since steroids have their most profound effect on post-prandial hyperglycemia. Dose decrease in prednisone should yield an improvement in BSGs. PLAN FOR INPATIENT GLYCEMIC CONTROL: * Basal insulin: decrease dosing for below goal range AM fasting BSG * Lantus 13 units SQ BID * Bolus insulin: empirically loosen parameters for step down in steroid dosing * NovoLog per scale ACHS or Q6hrs while NPO * Goal Range: Low 120 mg/dL - High 150 mg/dL * Correction Factor: 15 mg/dL/unit * Nutritional / Prandial insulin per carb ratio of 1 unit per 5 grams CHO consumed Thank you.
--- NOTE | 2017-06-02 12:59 | Progress Note ---
Internal Med Progress Note Date of Service: Jun 02, 2017. Provider Documentation: SUBJECTIVE: Seen and examined at bedside States feeling well Denies chest pain, SOB, dizziness, abd pain No complaints OBJECTIVE: Vital Signs-as noted below Physical Exam: General Appearance:Moderately built and nourished, no apparent distress Head: normocephalic, Atraumatic Eyes: normal inspection, EOMI, PERRL Neck: supple, Trachea midline Respiratory/Chest: Normal breath sounds, CTA Cardiovascular: Irregularly irregular, + systolic murmur Abdomen/GI:Soft, Non tender, Bowel sounds present Extremities/Musculoskelatal:normal inspection, + B/L pretibial edema Neurologic/Psych:AAOX3, grossly no focal neurological deficits Skin: normal color, warm Lab data as noted below. ASSESSMENT & PLAN: Patient is a 62yr male with PMH of CHF with EF 35-40%, CAD, DM, HTN presenting with shortness of breath. Left retroperitoneal/Iliopsoas Hemorrhage S/P Left Fem HD cath placement 05/29/17 and removal on 06/01/17 CT Abd as below Hb:8.7 S/P 2 units PRBCs Heparin, warfarin, aspirin discontinued Prior hospitalist discussed with Dr. Nunez Safety Spec Monitor Hb Anemia Likely from Acute blood loss from hematoma, Kidney disease S/P 2 units PRBC Monitor Hb Procrit monitor Acute Hypoxic respiratory failure: multifactorial On 2 L of NC: wean off as able Influenza/B/L Pneumonia completed Tamiflu completed 7 days Cefepime + Doxy Possible Acute on Chronic CHF exacerbation s/p IV Lasix Lasix held for now due to Acute Renal Failure on CKD Abnormal CT chest: (+) pulmonary nodules, possible Aspergillosis vs Mets? Appreciate Pulmonary Input Needs repeat CT in 6-8 weeks ARPIT: Continue CPAP per Pulmonology PAM on CKD IV s/p IV Lasix and intermittent IV NSS Cr increased to 4s (+) altered mental status likely from Uremia, resolved Received 3 HDs so far: mental status back to baseline Cr: 3.5 today Nephrology on board monitor renal function May need tunneled dialysis catheter if renal function continues to worsen and he needs dialysis. Possible Asthma Exacerbation on Nebs Continue Prednisone taper A Fib RVR rate controlled on Amiodarone PO, Carvedilol d/c Heparin, Warfarin, Aspirin due to Hematoma HHS, DM II A1c 9.5 transitioned to ISS, Lantus HTN Stable d/c Amlodipine continue Carvedilol Nonocclusive CAD hold ASA for hematoma Chronic thrombocytopenia: Stable monitor DVT Px: SCDs d/c heparin as patient has hematoma Disposition PT/OT may need Rehab/SNF upon discharge PROCEDURES: CT ABD: 1. Moderate left retroperitoneal hematoma emanating from the left iliopsoas muscle. 9 cm intramuscular hematoma in the left psoas. Trace retroperitoneal hemorrhage. 2. A hematocrit level within the hematoma suggests coagulopathy or anticoagulation. 3. Left common femoral venous catheter. This appears to be intravascular but the location of the terminus is difficult to confidently confirm without intravenous contrast. 4. Nodular opacities at the lung bases with peripheral groundglass. This can be seen in the setting of hemorrhagic metastases or angioinvasive aspergillosis among other etiologies. Correlate for immunocompromised status. 5. Anemia. Vital Signs: Date Time Temp Pulse Resp B/P (MAP) Pulse Ox O2 Delivery O2 Flow Rate FiO2 06/02/17 12:00 Nasal Cannula 2.0 06/02/17 11:51 36.8 87 16 125/82 (96) 97 Nasal Cannula 2.0 06/02/17 08:00 37.2 93 18 130/83 (99) 98 Nasal Cannula 2.0 06/02/17 08:00 Nasal Cannula 2.0 06/02/17 04:00 Nasal Cannula 2.0 06/02/17 03:57 36.8 85 18 125/78 (94) 99 Nasal Cannula 2.0 06/02/17 00:00 Nasal Cannula 2.0 06/02/17 00:00 92 06/01/17 23:42 36.7 154 24 119/68 (85) 92 2.0 06/01/17 22:34 106 97 06/01/17 22:00 37.3 89 18 148/94 99 2.0 06/01/17 21:05 36.9 110 18 164/97 99 2.0 06/01/17 20:05 36.9 101 20 165/101 98 06/01/17 20:00 Room Air 06/01/17 19:35 36.8 103 18 147/104 99 2.0 06/01/17 19:05 37.1 103 18 114/83 99 2.0 06/01/17 18:50 37.3 103 18 119/64 97 2.0 06/01/17 18:32 37.1 97 18 117/79 97 2.0 06/01/17 17:43 36.9 98 18 130/78 99 2.0 06/01/17 17:00 37.0 98 18 126/91 99 2.0 06/01/17 16:30 37.2 101 18 138/86 99 2.0 06/01/17 16:00 36.8 99 18 122/84 99 2.0 06/01/17 15:50 Nasal Cannula 2.0 06/01/17 15:45 36.6 99 18 116/85 96 2.0 06/01/17 15:29 36.8 80 18 125/82 99 2.0 06/01/17 14:55 36.7 94 18 117/79 (92) 99 Nasal Cannula 2.0 06/01/17 14:34 92 18 134/84 (101) 92 Nasal Cannula 2.0 06/01/17 14:15 92 18 112/85 (94) 96 Nasal Cannula 2.0 06/01/17 13:55 86 18 134/57 (82) 95 Nasal Cannula 2.0 Lab Results: Results Past 24 Hours Test 06/01/17 16:39 06/01/17 17:04 06/01/17 20:54 06/01/17 22:20 Range/Units Bedside Glucose 64 125 196 70-99 mg/dl Hemoglobin 8.6 14.0-18.0 g/dL Hematocrit 25.5 42-52 % Test 06/02/17 04:39 06/02/17 07:18 06/02/17 11:32 Range/Units White Blood Count 13.33 4.8-10.8 K/uL Red Blood Count 3.06 4.7-6.1 M/uL Hemoglobin 8.7 14.0-18.0 g/dL Hematocrit 26.0 42-52 % Mean Corpuscular Volume 85.0 80-100 fL Mean Corpuscular Hemoglobin 28.4 25-34 pg Mean Corpuscular Hemoglobin Concent 33.5 32-36 g/dl RDW Standard Deviation 44.2 36.4-46.3 fL RDW Coefficient of Variation 14.4 11.5-14.5 % Platelet Count 206 130-400 K/uL Mean Platelet Volume 8.7 7.4-10.4 fL Nucleated RBC Absolute Count (auto) 0.06 0-0 K/uL Nucleated Red Blood Cells % 0.4 % Activated Partial Thromboplast Time 22.0 21.0-31.0 SECONDS Partial Thromboplastin Ratio 0.8 Sodium Level 140 136-145 mmol/L Potassium Level 4.8 3.5-5.1 mmol/L Chloride Level 106 98-107 mmol/L Carbon Dioxide Level 28 21-32 mmol/L Anion Gap 6.0 3-11 mmol/L Blood Urea Nitrogen 59 7-18 mg/dl Creatinine 3.50 0.60-1.40 mg/dl Est Creatinine Clear Calc Drug Dose 26.2 ml/min Estimated GFR () 20.3 Estimated GFR (Non- 17.5 BUN/Creatinine Ratio 16.8 10-20 Random Glucose 98 70-99 mg/dl Calcium Level 8.6 8.5-10.1 mg/dl Bedside Glucose 88 195 70-99 mg/dl
--- NOTE | 2017-06-02 13:50 | Cardiology Follow-Up ---
Subjective General Date of Service: Jun 02, 2017. Chief Complaint: follow up shortness of breath Pt evaluation today including: conversation w/ patient, physical exam, chart review, lab review, review of studies, review of inpatient medication list History of Present Illness The patient is a 62 year old male seen in follow up. Femoral dialysis catheter removed and patient transfused 2u PRBC's yesterday. hgb stable today. Denies abdominal or low back pain. Offers no complaints. Creatinine trending upward. Allergies Coded Allergies: No Known Allergies (Verified , 05/23/17) Social History Smoking Status: Never Smoker Hx Tobacco Use In Past Year?: No Hx Alcohol Use - Type And Amou: No Hx Substance Use - Type And Am: No Problem List Medical Problems: (1) CHF (congestive heart failure) Status: Acute (2) CHF (congestive heart failure) Status: Acute (3) Diffuse abdominal pain Status: Acute (4) Elevated troponin Status: Acute (5) Precordial chest pain Status: Acute (6) Renal cyst Status: Acute (7) Shortness of breath Status: Acute (8) Shortness of breath Status: Acute Review of Systems Respiratory: + cough, + wheezing, + dyspnea on exertion, No sputum, No shortness of breath, No dyspnea at rest, No hemoptysis Cardiac: No chest pain, No orthopnea, No PND, No edema, No claudication, No palpitations Physical Exam Vital Signs Last Vital Signs Documentation Date Time Temp Pulse Resp B/P (MAP) Pulse Ox O2 Delivery O2 Flow Rate FiO2 06/02/17 12:00 Nasal Cannula 2.0 06/02/17 11:51 36.8 87 16 125/82 (96) 97 05/29/17 09:42 40 Physical Exam Constitutional: Level of Distress: NAD, acutely ill Head: normocephalic ENMT: TMs normal Neck: supple, trachea midline Lungs: Auscultation: expiratory wheezing Cardiovascular: Heart Auscultation: irregular rate rhythm, pertinent finding (1/6 SM) Abdomen: Inspection & Palpation: soft, non-distended Extremities: no edema, pertinent finding (mild left groin ecchymosis) Neurologic: Gait & Station: pertinent finding (confuse, tremor) Assessment and Plan Assessment and Plan Impression: 1. Acute influenza A with B/L pneumonia -CT demonstrates possible aspergillosis versus metastatic disease 2. Left sided retroperitoneal hematoma secondary to femoral dialysis catheter placement and anticoagulation. 3. Symptomatic anemia secondary to #2 and chronic disease 4. Systolic heart failure, history of left bundle branch block, nonischemic cardiomyopathy, LVEF 30-40% March 2017 -compensated 5. Acute kidney injury (nonoliguric) on stage III chronic kidney disease -creatinine trending upward 6. Atrial fibrillation with borderline rate control - new onset - IV heparin on hold due to RPB 7. Encephalopathy / delirium, perhaps due to uremia, acute influenza, +/- Tamiflu - mental status improving Plan: Hold heparin today. Would not add coumadin at this time due potential need for dialysis. Assess PT/INR. Consider restarting anticoagulation in 24-48 hours. Reduce amiodarone to 200mg BID. Laboratory Results Last 24 Hours Test 06/01/17 16:39 06/01/17 17:04 06/01/17 20:54 06/01/17 22:20 Bedside Glucose 64 mg/dl 125 mg/dl 196 mg/dl Hemoglobin 8.6 g/dL Hematocrit 25.5 % Test 06/02/17 04:39 06/02/17 07:18 06/02/17 11:32 06/02/17 13:40 White Blood Count 13.33 K/uL Red Blood Count 3.06 M/uL Hemoglobin 8.7 g/dL Hematocrit 26.0 % Mean Corpuscular Volume 85.0 fL Mean Corpuscular Hemoglobin 28.4 pg Mean Corpuscular Hemoglobin Concent 33.5 g/dl RDW Standard Deviation 44.2 fL RDW Coefficient of Variation 14.4 % Platelet Count 206 K/uL Mean Platelet Volume 8.7 fL Nucleated RBC Absolute Count (auto) 0.06 K/uL Nucleated Red Blood Cells % 0.4 % Activated Partial Thromboplast Time 22.0 SECONDS Partial Thromboplastin Ratio 0.8 Sodium Level 140 mmol/L Potassium Level 4.8 mmol/L Chloride Level 106 mmol/L Carbon Dioxide Level 28 mmol/L Anion Gap 6.0 mmol/L Blood Urea Nitrogen 59 mg/dl Creatinine 3.50 mg/dl Est Creatinine Clear Calc Drug Dose 26.2 ml/min Estimated GFR () 20.3 Estimated GFR (Non- 17.5 BUN/Creatinine Ratio 16.8 Random Glucose 98 mg/dl Calcium Level 8.6 mg/dl Bedside Glucose 88 mg/dl 195 mg/dl
--- NOTE | 2017-06-02 14:35 | Pulmonology Progress Note ---
Pulmonary Progress Note Date of Service Jun 02, 2017. Attending Dr. Shen Subjective Patient is doing well today. He does note he tolerated the CPAP better than in the past. Objective Patient doing well able to sit up in bed today show no signs of respiratory insufficiency such as using accessory muscles are tachypnea during our conversation. He does note he is able the tolerate the CPAP mask much better than in the past. Vital signs: Stable on 2 liters nasal cannula Respiratory: Minimal crackles at the base Cardiac: S1-S2 distant heart sounds but regular rate rhythm at this time Abdomen: Soft nontender Lower extremity: Well-healing previous HD catheter placement Assessment & Plan 62-year-old gentleman admitted with respiratory insufficiency/hypoxemia, abnormal CT scan history of sleep apnea: 1. Hypoxemia: Patient's hypoxemia is greatly improved since his initial arrival and is most likely combination of influenza A, CHF and chronic renal insufficiency. During our conversation the patient was saturating well on 2 liters nasal cannula with no signs of respiratory insufficiency. 2. Abnormal CT scan: Patient's most recent CT of the abdomen does show some ground-glass changes with atelectasis and possible nodules. This is notably different as compared to a CT of the thorax performed 04/18/2017. At this time the patient should be continued on incentive spirometry and then followed up as an outpatient with a CT scan possibly in supine positioning for further evaluation/evaluation for resolution. 3. Sleep Apnea: At this time the patient is tolerating 10 cm H2 O of CPAP pressures. We did have a long discussion about the necessity for CPAP in long- term health control/maintenance. I have also suggested the patient follow up with Dr. Claudio Schroeder after he is discharged for his sleep apnea. Sign off: At this time the pulmonary team will sign off but the patient will require follow-up as an outpatient for resolution of his pulmonary nodule/ atelectasis as well as the sleep apnea. I do suggest the patient follow up with Dr. Claudio Schroeder as he is our sleep physician. Data Medications: Current Inpatient Medications Medications (Trade) Dose Ordered Sig/Larry Route Start Time Stop Time Status Last Admin Dose Admin Acetaminophen (Tylenol Tab) 650 mg Q4H PRN PO 05/23/17 04:30 06/22/17 04:29 05/28/17 18:03 650 MG Nitroglycerin (Nitrostat Tab) 0.4 mg UD PRN SL 05/23/17 04:30 06/22/17 04:29 Hydromorphone HCl (Dilaudid Inj) 0.5 mg Q3H PRN IV 05/23/17 04:30 06/06/17 04:29 Tramadol HCl (Ultram Tab) not relieved ... Q6H PRN PO 05/23/17 04:30 06/22/17 04:29 Carvedilol (Coreg Tab) 12.5 mg BID PO 05/23/17 09:00 06/22/17 08:59 06/02/17 07:55 12.5 MG Duloxetine HCl (Cymbalta Cap) 60 mg DAILY PO 05/23/17 09:00 06/22/17 08:59 06/02/17 07:55 60 MG Pantoprazole Sodium (Protonix Tab) 40 mg QAM PO 05/23/17 09:00 06/22/17 08:59 06/02/17 07:55 40 MG Rosuvastatin Calcium (Crestor Tab) 40 mg HS PO 05/23/17 21:00 06/22/17 20:59 06/01/17 22:00 40 MG Prochlorperazine Edisylate 5 mg/ Syringe 5 ml @ 5 mls/min Q6H PRN IV 05/23/17 04:30 06/22/17 04:29 05/25/17 09:28 5 MLS/MIN Guaifenesin (Mucinex Contr Rel Tab) 600 mg BID PO 05/23/17 21:00 06/22/17 20:59 06/02/17 07:55 600 MG Ipratropium [place] (Atrovent 0.02% 0.5MG/2.5ML Neb) 0.5 mg Q4H PRN INH 05/23/17 05:15 06/22/17 05:14 05/25/17 00:20 0.5 MG Levalbuterol (Xopenex 1.25MG/ 0.5ML Neb) 1.25 mg Q4H PRN INH 05/23/17 05:15 06/22/17 05:14 05/25/17 00:20 1.25 MG Furosemide 40 mg/ Syringe 4 ml @ 4 mls/min DAILY IV 05/23/17 09:00 06/22/17 08:59 Future Hold 05/23/17 10:34 4 MLS/MIN Miscellaneous Information (Consult Glycemic Management Pharmacy) 1 ea UD N/A 05/23/17 09:48 06/22/17 09:47 Glucose (Glucose 40% Gel) 15-30 GRAMS 15 GRAMS... UD PRN PO 05/24/17 08:30 06/23/17 08:29 Glucose (Glucose Chew Tab) 4-8 Tablets 4 Tabl... UD PRN PO 05/24/17 08:30 06/23/17 08:29 Dextrose (Dextrose 50% 50ML Syringe) 25-50ML OF 50% DW IV FOR... UD PRN IV 05/24/17 08:30 06/23/17 08:29 05/27/17 23:29 25 ML Glucagon (Glucagon Inj) 1 mg UD PRN SQ 05/24/17 08:30 06/23/17 08:29 Gabapentin (Neurontin Cap) 300 mg HS PO 05/28/17 21:00 06/27/17 20:59 06/01/17 21:48 300 MG Polyethylene (Miralax Powder Packet) 17 gm DAILY PO 05/29/17 09:00 06/28/17 08:59 06/01/17 09:23 17 GM Insulin Aspart (novoLOG ASPART) SLIDING SCALE ACHS SC 05/29/17 12:00 06/28/17 11:59 06/02/17 12:12 9 UNITS Prednisone (PredniSONE TAB) 20 mg QD@1000 PO 06/02/17 10:00 07/02/17 09:59 06/02/17 10:09 20 MG Senna/Docusate Sodium (Senokot S Tab) 1 tab QAM PO 06/02/17 09:00 07/02/17 08:59 06/02/17 07:55 1 TAB Bisacodyl (Dulcolax Supp) 10 mg DAILY PRN [place] 06/01/17 13:15 07/01/17 13:14 Insulin Glargine (Lantus Solostar Pen) 13 units BID SC 06/02/17 09:00 07/02/17 08:59 06/02/17 08:52 13 UNITS Amiodarone HCl (Cordarone Tab) 200 mg BID PO 06/02/17 21:00 07/02/17 20:59 I & O: 24-Hour Column 06/03/17 08:00 Intake Total 480 ml Output Total 650 ml Balance -170 ml Vital Signs: Date Time Temp Pulse Resp B/P (MAP) Pulse Ox O2 Delivery O2 Flow Rate FiO2 06/02/17 12:00 Nasal Cannula 2.0 06/02/17 11:51 36.8 87 16 125/82 (96) 97 Nasal Cannula 2.0 06/02/17 08:00 37.2 93 18 130/83 (99) 98 Nasal Cannula 2.0 06/02/17 08:00 Nasal Cannula 2.0 06/02/17 04:00 Nasal Cannula 2.0 06/02/17 03:57 36.8 85 18 125/78 (94) 99 Nasal Cannula 2.0 06/02/17 00:00 Nasal Cannula 2.0 06/02/17 00:00 92 06/01/17 23:42 36.7 154 24 119/68 (85) 92 2.0 06/01/17 22:34 106 97 06/01/17 22:00 37.3 89 18 148/94 99 2.0 06/01/17 21:05 36.9 110 18 164/97 99 2.0 06/01/17 20:05 36.9 101 20 165/101 98 06/01/17 20:00 Room Air 06/01/17 19:35 36.8 103 18 147/104 99 2.0 06/01/17 19:05 37.1 103 18 114/83 99 2.0 06/01/17 18:50 37.3 103 18 119/64 97 2.0 06/01/17 18:32 37.1 97 18 117/79 97 2.0 06/01/17 17:43 36.9 98 18 130/78 99 2.0 06/01/17 17:00 37.0 98 18 126/91 99 2.0 06/01/17 16:30 37.2 101 18 138/86 99 2.0 06/01/17 16:00 36.8 99 18 122/84 99 2.0 06/01/17 15:50 Nasal Cannula 2.0 06/01/17 15:45 36.6 99 18 116/85 96 2.0 06/01/17 15:29 36.8 80 18 125/82 99 2.0 2/12/18 14:55 36.7 94 18 117/79 (92) 99 Nasal Cannula 2.0 06/01/17 14:34 92 18 134/84 (101) 92 Nasal Cannula 2.0 Laboratory Results: Last 24 Hours Test 06/01/17 16:39 06/01/17 17:04 06/01/17 20:54 06/01/17 22:20 Bedside Glucose 64 mg/dl 125 mg/dl 196 mg/dl Hemoglobin 8.6 g/dL Hematocrit 25.5 % Test 06/02/17 04:39 06/02/17 07:18 06/02/17 11:32 06/02/17 13:40 White Blood Count 13.33 K/uL Red Blood Count 3.06 M/uL Hemoglobin 8.7 g/dL Hematocrit 26.0 % Mean Corpuscular Volume 85.0 fL Mean Corpuscular Hemoglobin 28.4 pg Mean Corpuscular Hemoglobin Concent 33.5 g/dl RDW Standard Deviation 44.2 fL RDW Coefficient of Variation 14.4 % Platelet Count 206 K/uL Mean Platelet Volume 8.7 fL Nucleated RBC Absolute Count (auto) 0.06 K/uL Nucleated Red Blood Cells % 0.4 % Activated Partial Thromboplast Time 22.0 SECONDS Partial Thromboplastin Ratio 0.8 Sodium Level 140 mmol/L Potassium Level 4.8 mmol/L Chloride Level 106 mmol/L Carbon Dioxide Level 28 mmol/L Anion Gap 6.0 mmol/L Blood Urea Nitrogen 59 mg/dl Creatinine 3.50 mg/dl Est Creatinine Clear Calc Drug Dose 26.2 ml/min Estimated GFR () 20.3 Estimated GFR (Non- 17.5 BUN/Creatinine Ratio 16.8 Random Glucose 98 mg/dl Calcium Level 8.6 mg/dl Bedside Glucose 88 mg/dl 195 mg/dl
[2017-06-02] MEDS: GABAPENTIN 300 MG CAP PO SCH (20:45)
[2017-06-02] MEDS: ROSUVASTATIN CALCIUM 20 MG TAB PO SCH (20:46)
[2017-06-03] VITALS (8 sets, daily range): BP systolic 114–137; BP diastolic 70–96; PULSE 84–105; TEMP 36.9–37.7; O2SAT 91–99
[2017-06-03 04:46] LABS: HEMATOCRIT 27.3 % (42-52); HEMOGLOBIN 9.2 g/dL (14.0-18.0); MEAN CORPUSCULAR HEMOGLOBIN 28.7 pg (25-34); MEAN CORPUSCULAR HGB CONC 33.7 g/dl (32-36); MEAN PLATELET VOLUME 8.7 fL (7.4-10.4); NUCLEATED RED BLOOD CELL ABS 0.05 K/uL (0-0); PLATELET COUNT 218 K/uL (130-400); RED CELL DISTRIBUTION WIDTH CV 14.8 % (11.5-14.5); RED CELL DISTRIBUTION WIDTH SD 45.4 fL (36.4-46.3); WHITE BLOOD COUNT 13.44 K/uL (4.8-10.8)
[2017-06-03 04:54] LABS: INR 1.1 (0.9-1.1); PTT PATIENT 23.8 SECONDS (21.0-31.0)
[2017-06-03 05:05] LABS: CALCIUM 8.6 mg/dl (8.5-10.1); CREATININE 3.79 mg/dl (0.60-1.40); POTASSIUM 4.6 mmol/L (3.5-5.1)
[2017-06-03] MEDS: GUAIFENESIN 600 MG TABCR PO SCH ×2 (08:37→21:42)
[2017-06-03] MEDS: PANTOprazole SOD 40 MG TAB PO SCH (08:37)
[2017-06-03] MEDS: CARVEDILOL 12.5 MG TAB PO SCH ×2 (08:38→21:41)
[2017-06-03] MEDS: POLYETHYLENE (MIRALAX) 17 GM PACK PO SCH (08:38)
[2017-06-03] MEDS: DULOXETINE HCL 60 MG CAP PO SCH (08:38)
[2017-06-03] MEDS: AMIODARONE 200 MG TAB PO SCH ×2 (08:39→21:43)
[2017-06-03] MEDS: DOCUSATE SODIUM/SENNA 50/8.6MG TAB PO SCH (08:43)
[2017-06-03] MEDS: INSULIN ASPART 100 UNITS/ML 3 ML PEN SC SCH ×4 (08:48→21:46)
[2017-06-03] MEDS: INSULIN GLARGINE SOLOSTAR 100 UNITS/ML 3 ML PEN SC SCH ×2 (08:49→21:46)
--- NOTE | 2017-06-03 11:34 | Progress Note ---
Internal Med Progress Note Date of Service: Jun 03, 2017. Provider Documentation: SUBJECTIVE: Seen and examined at bedside No new complaints Doing well Cr slightly up, Discussed with Nephrology Denies chest pain, SOB, dizziness, abd pain OBJECTIVE: Vital Signs-as noted below Physical Exam: General Appearance:Moderately built and nourished, no apparent distress Head: normocephalic, Atraumatic Eyes: normal inspection, EOMI, PERRL Neck: supple, Trachea midline Respiratory/Chest: Normal breath sounds, scattered wheezes Cardiovascular: Irregularly irregular, + systolic murmur Abdomen/GI:Soft, Non tender, Bowel sounds present Extremities/Musculoskelatal:normal inspection, + B/L pretibial edema Neurologic/Psych:AAOX3, grossly no focal neurological deficits Skin: normal color, warm Lab data as noted below. ASSESSMENT & PLAN: Patient is a 62yr male with PMH of CHF with EF 35-40%, CAD, DM, HTN presenting with shortness of breath. Left retroperitoneal/Iliopsoas Hemorrhage S/P Left Fem HD cath placement 05/29/17 and removal on 06/01/17 CT Abd as below Hb:8.7>>9.2 S/P 2 units PRBCs Heparin, warfarin, aspirin discontinued Prior hospitalist discussed with Dr. Nunez Oxide Furnace Tender Monitor Hb Anemia Likely from Acute blood loss from hematoma, Kidney disease S/P 2 units PRBC Monitor Hb Procrit monitor Acute Hypoxic respiratory failure: multifactorial weaned off oxygen as able Influenza/B/L Pneumonia completed Tamiflu completed 7 days Cefepime + Doxy Possible Acute on Chronic CHF exacerbation s/p IV Lasix Lasix held for now due to Acute Renal Failure on CKD Abnormal CT chest: (+) pulmonary nodules, possible Aspergillosis vs Mets? Appreciate Pulmonary Input Needs repeat CT in 6-8 weeks and follow up with Pulmonology as outpatient ARPIT: Continue CPAP per Pulmonology PAM on CKD IV s/p IV Lasix and intermittent IV NSS Cr increased to 4s (+) altered mental status likely from Uremia, resolved Received 3 HDs so far: mental status back to baseline Cr: 3.79 today Nephrology on board monitor renal function May need tunneled dialysis catheter if renal function continues to worsen and he needs dialysis. Possible Asthma Exacerbation on Nebs Continue Prednisone taper leukocytosis likely secondary to prednisone A Fib RVR rate controlled on Amiodarone PO, Carvedilol Heparin, Warfarin, Aspirin were discontinued due to Hematoma amiodarone dose decreased to 200mh BID Plan to resume Heparin when able HHS, DM II A1c 9.5 transitioned to ISS, Lantus HTN Stable d/c Amlodipine continue Carvedilol Nonocclusive CAD Plan to resume ASA if Hb stable Chronic thrombocytopenia: Stable monitor DVT Px: SCDs Re:hematoma Disposition PT/OT may need Rehab/SNF upon discharge PROCEDURES: CT ABD: 1. Moderate left retroperitoneal hematoma emanating from the left iliopsoas muscle. 9 cm intramuscular hematoma in the left psoas. Trace retroperitoneal hemorrhage. 2. A hematocrit level within the hematoma suggests coagulopathy or anticoagulation. 3. Left common femoral venous catheter. This appears to be intravascular but the location of the terminus is difficult to confidently confirm without intravenous contrast. 4. Nodular opacities at the lung bases with peripheral groundglass. This can be seen in the setting of hemorrhagic metastases or angioinvasive aspergillosis among other etiologies. Correlate for immunocompromised status. 5. Anemia. Vital Signs: Date Time Temp Pulse Resp B/P (MAP) Pulse Ox O2 Delivery O2 Flow Rate FiO2 06/03/17 12:00 91 Room Air 06/03/17 10:55 37.2 90 18 114/77 (89) 94 Room Air 06/03/17 08:00 91 Room Air 06/03/17 06:50 37.0 95 18 123/70 (87) 91 Room Air 06/03/17 05:27 37.2 06/03/17 04:00 Room Air 06/03/17 03:49 37.7 85 18 125/78 (94) 99 Nasal Cannula 2.0 06/03/17 00:17 37.2 84 18 131/90 (104) 99 BiPAP 06/03/17 00:00 BiPAP 2.0 06/02/17 22:24 113 98 06/02/17 20:00 Room Air 06/02/17 19:59 37.0 101 20 138/91 (107) 97 Room Air 06/02/17 16:00 Room Air 06/02/17 15:13 37.3 115 18 122/74 (90) 96 Room Air Lab Results: Results Past 24 Hours Test 06/02/17 14:49 06/02/17 16:38 06/02/17 20:13 06/03/17 04:37 Range/Units Prothrombin Time 10.9 11.4 9.0-12.0 SECONDS Prothromb Time International Ratio 1.0 1.1 0.9-1.1 Bedside Glucose 141 228 70-99 mg/dl White Blood Count 13.44 4.8-10.8 K/uL Red Blood Count 3.21 4.7-6.1 M/uL Hemoglobin 9.2 14.0-18.0 g/dL Hematocrit 27.3 42-52 % Mean Corpuscular Volume 85.0 80-100 fL Mean Corpuscular Hemoglobin 28.7 25-34 pg Mean Corpuscular Hemoglobin Concent 33.7 32-36 g/dl RDW Standard Deviation 45.4 36.4-46.3 fL RDW Coefficient of Variation 14.8 11.5-14.5 % Platelet Count 218 130-400 K/uL Mean Platelet Volume 8.7 7.4-10.4 fL Nucleated RBC Absolute Count (auto) 0.05 0-0 K/uL Nucleated Red Blood Cells % 0.4 % Activated Partial Thromboplast Time 23.8 21.0-31.0 SECONDS Partial Thromboplastin Ratio 0.9 Sodium Level 137 136-145 mmol/L Potassium Level 4.6 3.5-5.1 mmol/L Chloride Level 104 98-107 mmol/L Carbon Dioxide Level 26 21-32 mmol/L Anion Gap 7.0 3-11 mmol/L Blood Urea Nitrogen 62 7-18 mg/dl Creatinine 3.79 0.60-1.40 mg/dl Est Creatinine Clear Calc Drug Dose 24.0 ml/min Estimated GFR () 18.5 Estimated GFR (Non- 15.9 BUN/Creatinine Ratio 16.5 10-20 Random Glucose 94 70-99 mg/dl Calcium Level 8.6 8.5-10.1 mg/dl Test 06/03/17 07:27 06/03/17 11:22 Range/Units Bedside Glucose 82 118 70-99 mg/dl
--- NOTE | 2017-06-03 11:41 | Pharmacy Progress Note ---
Pharmacy Glycemic Short Note 2 Date of Service Jun 03, 2017. OUTPATIENT ANTIDIABETIC REGIMEN: * Novolog with meals - 7 units breakfast, 14 units lunch and dinner * Lantus 45 units HS * A1c = 9.2 % 05/23/17, although this result is likely somewhat unreliable d/t CKD ASSESSMENT: * Patient has been requiring ~ 55 units of insulin per day for adequate control while on prednisone 20mg daily * 26 units of basal insulin with Lantus (13 units SQ BID) * 30 units of prandial/correctional insulin with NovoLog per CF/CR of 03/23 respectively * BSGs 06/01: 141, 179, 125, 195 * BSGs 06/02: 88, 195, 141, 228 * BSGs 06/03: 82 * Goal BSG range is <150 mg/dl to promote wound healing. * AM fasting BSG is slightly below goal range at 88mg/dl today. Decrease in basal insulin is warranted. * More CHO coverage is needed - BSG increased from in range to above range with meals. BSG corrects well whenever BSG is high pre-meal, therefore, patient receives extra coverage for elevated BSG. Will tighten CR but loosen CF to prevent hypo when additional CHO coverage is given and BSG is above goal range. PLAN FOR INPATIENT GLYCEMIC CONTROL: * Basal insulin: decrease dosing for below goal range AM fasting BSG * Lantus 12 units SQ BID * Bolus insulin: Tighten CR, Loosen CF * NovoLog per scale ACHS or Q6hrs while NPO * Goal Range: Low 120 mg/dL - High 150 mg/dL * Correction Factor: 20 mg/dL/unit * Nutritional / Prandial insulin per carb ratio of 1 unit per 4 grams CHO consumed Thank you.
--- NOTE | 2017-06-03 11:58 | Cardiology Follow-Up ---
Subjective General Date of Service: Jun 03, 2017. Chief Complaint: follow up shortness of breath Pt evaluation today including: conversation w/ patient, physical exam, chart review, lab review, review of studies, review of inpatient medication list History of Present Illness Patient is feeling relatively well this morning. Continues to note lose productive cough. No concerns regarding shortness of breath, orthopnea, PND. Mild lower extremity edema noted but is unchanged. No fever chills. No abdominal pain. No dizziness or palpitations. Allergies Coded Allergies: No Known Allergies (Verified , 05/23/17) Social History Smoking Status: Never Smoker Hx Tobacco Use In Past Year?: No Hx Alcohol Use - Type And Amou: No Hx Substance Use - Type And Am: No Problem List Medical Problems: (1) CHF (congestive heart failure) Status: Acute (2) CHF (congestive heart failure) Status: Acute (3) Diffuse abdominal pain Status: Acute (4) Elevated troponin Status: Acute (5) Precordial chest pain Status: Acute (6) Renal cyst Status: Acute (7) Shortness of breath Status: Acute (8) Shortness of breath Status: Acute Review of Systems Respiratory: + cough, + sputum, No shortness of breath, No dyspnea on exertion , No dyspnea at rest, No hemoptysis Cardiac: + edema, No chest pain, No orthopnea, No PND, No palpitations Physical Exam Vital Signs Last Vital Signs Documentation Date Time Temp Pulse Resp B/P (MAP) Pulse Ox O2 Delivery O2 Flow Rate FiO2 06/03/17 10:55 37.2 90 18 114/77 (89) 94 Room Air 06/03/17 03:49 2.0 05/29/17 09:42 40 Physical Exam Constitutional: Level of Distress: NAD, acutely ill Head: normocephalic ENMT: TMs normal Neck: supple, trachea midline Lungs: Auscultation: expiratory wheezing, rhonchi Cardiovascular: Heart Auscultation: irregular rate rhythm, pertinent finding (1/6 SM) Abdomen: Inspection & Palpation: soft, non-distended Extremities: edema (1+ pretibial edema b/l), pertinent finding (mild left groin ecchymosis) Neurologic: Gait & Station: pertinent finding (confuse, tremor) Assessment and Plan Assessment and Plan Impression: 1. Acute influenza A with B/L pneumonia -CT demonstrates possible aspergillosis versus metastatic disease 2. Left sided retroperitoneal hematoma secondary to femoral dialysis catheter placement and anticoagulation. 3. Symptomatic anemia secondary to #2 and chronic disease. Received 2 units PRBC's. HBG stable. 4. Systolic heart failure, history of left bundle branch block, nonischemic cardiomyopathy, LVEF 30-40% March 2017 -compensated 5. Acute kidney injury (nonoliguric) on stage III chronic kidney disease -creatinine trending upward 6. Atrial fibrillation with borderline rate control - new onset - IV heparin on hold due to RPB 7. Encephalopathy / delirium, perhaps due to uremia, acute influenza, +/- Tamiflu - mental status improving Plan: Dialysis plans uncertain. May need dialysis catheter placed. Do not start Coumadin. If no plans for cath placement today, recommend resuming IV heparin. Assess PT/INR. Continue all other medications as prescribed. Cardiology attending physician: Patient seen and examined at the bedside. Hemoglobin remains stable. Creatinine continues to trend upward. Denies chest pain or shortness of breath. Worsening lower extremity edema noted. PE: VSS. Gen; NAD. Heart: Irregular rhythm,1/6 KACIE. Lungs: Scattered rhonchi, expiratory wheeze. Extremities: 1+ bilateral pretibial edema. A/p: Agree with above PA-C history, physical exam, assessment and plan. Recommend restart her venous anticoagulation after nephrology assessment. I would not add Coumadin at this time due to potential need for dialysis catheter placement. Patient appears to be retaining fluid today with worsening edema. Other medications will be continued as previously ordered. Skyler Wild DO, [facility] Laboratory Results Last 24 Hours Test 06/02/17 14:49 06/02/17 16:38 06/02/17 20:13 06/03/17 04:37 Prothrombin Time 10.9 SECONDS 11.4 SECONDS Prothromb Time International Ratio 1.0 1.1 Bedside Glucose 141 mg/dl 228 mg/dl White Blood Count 13.44 K/uL Red Blood Count 3.21 M/uL Hemoglobin 9.2 g/dL Hematocrit 27.3 % Mean Corpuscular Volume 85.0 fL Mean Corpuscular Hemoglobin 28.7 pg Mean Corpuscular Hemoglobin Concent 33.7 g/dl RDW Standard Deviation 45.4 fL RDW Coefficient of Variation 14.8 % Platelet Count 218 K/uL Mean Platelet Volume 8.7 fL Nucleated RBC Absolute Count (auto) 0.05 K/uL Nucleated Red Blood Cells % 0.4 % Activated Partial Thromboplast Time 23.8 SECONDS Partial Thromboplastin Ratio 0.9 Sodium Level 137 mmol/L Potassium Level 4.6 mmol/L Chloride Level 104 mmol/L Carbon Dioxide Level 26 mmol/L Anion Gap 7.0 mmol/L Blood Urea Nitrogen 62 mg/dl Creatinine 3.79 mg/dl Est Creatinine Clear Calc Drug Dose 24.0 ml/min Estimated GFR () 18.5 Estimated GFR (Non- 15.9 BUN/Creatinine Ratio 16.5 Random Glucose 94 mg/dl Calcium Level 8.6 mg/dl Test 06/03/17 07:27 Bedside Glucose 82 mg/dl
--- NOTE | 2017-06-03 14:22 | Nephrology Progress Note ---
Nephrology Progress Note Date of Service: Jun 03, 2017. Subjective 62 yo male with flu/afib rate controlled/atn who required dialysis for worsening mental status/tremors/uremia and developed hematoma. heparin off for now. pt had catheter removed and also cuadra removed as well. urinating well. walking around with physical therapy. feels good. Objective Date Time Temp Pulse Resp B/P (MAP) Pulse Ox O2 Delivery O2 Flow Rate FiO2 06/03/17 12:00 91 Room Air 06/03/17 10:55 37.2 90 18 114/77 (89) 94 Room Air 06/03/17 08:00 91 Room Air 06/03/17 06:50 37.0 95 18 123/70 (87) 91 Room Air 06/03/17 05:27 37.2 06/03/17 04:00 Room Air 06/03/17 03:49 37.7 85 18 125/78 (94) 99 Nasal Cannula 2.0 06/03/17 00:17 37.2 84 18 131/90 (104) 99 BiPAP 06/03/17 00:00 BiPAP 2.0 06/02/17 22:24 113 98 06/02/17 20:00 Room Air 06/02/17 19:59 37.0 101 20 138/91 (107) 97 Room Air 06/02/17 16:00 Room Air 06/02/17 15:13 37.3 115 18 122/74 (90) 96 Room Air Physical Exam: General-aaox3 Eyes-no scleral icterus ENT-mmm Neck-supple Lungs-clear Heart-irregularly irregular Abdomen-bs+ s/nt/nd Extremities-no c/c/e Neuro-nonfocal Current Inpatient Medications Medications (Trade) Dose Ordered Sig/Larry Route Start Time Stop Time Status Last Admin Dose Admin Acetaminophen (Tylenol Tab) 650 mg Q4H PRN PO 05/23/17 04:30 06/22/17 04:29 05/28/17 18:03 650 MG Nitroglycerin (Nitrostat Tab) 0.4 mg UD PRN SL 05/23/17 04:30 06/22/17 04:29 Hydromorphone HCl (Dilaudid Inj) 0.5 mg Q3H PRN IV 05/23/17 04:30 06/06/17 04:29 Tramadol HCl (Ultram Tab) not relieved ... Q6H PRN PO 05/23/17 04:30 06/22/17 04:29 Carvedilol (Coreg Tab) 12.5 mg BID PO 05/23/17 09:00 06/22/17 08:59 06/03/17 08:38 12.5 MG Duloxetine HCl (Cymbalta Cap) 60 mg DAILY PO 05/23/17 09:00 06/22/17 08:59 06/03/17 08:38 60 MG Pantoprazole Sodium (Protonix Tab) 40 mg QAM PO 05/23/17 09:00 06/22/17 08:59 06/03/17 08:37 40 MG Rosuvastatin Calcium (Crestor Tab) 40 mg HS PO 05/23/17 21:00 06/22/17 20:59 06/02/17 20:46 40 MG Prochlorperazine Edisylate 5 mg/ Syringe 5 ml @ 5 mls/min Q6H PRN IV 05/23/17 04:30 06/22/17 04:29 05/25/17 09:28 5 MLS/MIN Guaifenesin (Mucinex Contr Rel Tab) 600 mg BID PO 05/23/17 21:00 06/22/17 20:59 06/03/17 08:37 600 MG Ipratropium [place] (Atrovent 0.02% 0.5MG/2.5ML Neb) 0.5 mg Q4H PRN INH 05/23/17 05:15 06/22/17 05:14 05/25/17 00:20 0.5 MG Levalbuterol (Xopenex 1.25MG/ 0.5ML Neb) 1.25 mg Q4H PRN INH 05/23/17 05:15 06/22/17 05:14 05/25/17 00:20 1.25 MG Furosemide 40 mg/ Syringe 4 ml @ 4 mls/min DAILY IV 05/23/17 09:00 06/22/17 08:59 Future Hold 05/23/17 10:34 4 MLS/MIN Miscellaneous Information (Consult Glycemic Management Pharmacy) 1 ea UD N/A 05/23/17 09:48 06/22/17 09:47 Glucose (Glucose 40% Gel) 15-30 GRAMS 15 GRAMS... UD PRN PO 05/24/17 08:30 06/23/17 08:29 Glucose (Glucose Chew Tab) 4-8 Tablets 4 Tabl... UD PRN PO 05/24/17 08:30 06/23/17 08:29 Dextrose (Dextrose 50% 50ML Syringe) 25-50ML OF 50% DW IV FOR... UD PRN IV 05/24/17 08:30 06/23/17 08:29 05/27/17 23:29 25 ML Glucagon (Glucagon Inj) 1 mg UD PRN SQ 05/24/17 08:30 06/23/17 08:29 Gabapentin (Neurontin Cap) 300 mg HS PO 05/28/17 21:00 06/27/17 20:59 06/02/17 20:45 300 MG Polyethylene (Miralax Powder Packet) 17 gm DAILY PO 05/29/17 09:00 06/28/17 08:59 06/01/17 09:23 17 GM Insulin Aspart (novoLOG ASPART) SLIDING SCALE ACHS SC 05/29/17 12:00 06/28/17 11:59 06/03/17 12:20 11 UNITS Prednisone (PredniSONE TAB) 20 mg QD@1000 PO 06/02/17 10:00 07/02/17 09:59 06/03/17 10:00 20 MG Senna/Docusate Sodium (Senokot S Tab) 1 tab QAM PO 06/02/17 09:00 07/02/17 08:59 06/02/17 07:55 1 TAB Bisacodyl (Dulcolax Supp) 10 mg DAILY PRN [place] 06/01/17 13:15 07/01/17 13:14 Amiodarone HCl (Cordarone Tab) 200 mg BID PO 06/02/17 21:00 07/02/17 20:59 06/03/17 08:39 200 MG Insulin Glargine (Lantus Solostar Pen) 12 units BID SC 06/03/17 21:00 07/03/17 20:59 Last 24 Hours Test 06/02/17 14:49 06/02/17 16:38 06/02/17 20:13 06/03/17 04:37 Prothrombin Time 10.9 SECONDS 11.4 SECONDS Prothromb Time International Ratio 1.0 1.1 Bedside Glucose 141 mg/dl 228 mg/dl White Blood Count 13.44 K/uL Red Blood Count 3.21 M/uL Hemoglobin 9.2 g/dL Hematocrit 27.3 % Mean Corpuscular Volume 85.0 fL Mean Corpuscular Hemoglobin 28.7 pg Mean Corpuscular Hemoglobin Concent 33.7 g/dl RDW Standard Deviation 45.4 fL RDW Coefficient of Variation 14.8 % Platelet Count 218 K/uL Mean Platelet Volume 8.7 fL Nucleated RBC Absolute Count (auto) 0.05 K/uL Nucleated Red Blood Cells % 0.4 % Activated Partial Thromboplast Time 23.8 SECONDS Partial Thromboplastin Ratio 0.9 Sodium Level 137 mmol/L Potassium Level 4.6 mmol/L Chloride Level 104 mmol/L Carbon Dioxide Level 26 mmol/L Anion Gap 7.0 mmol/L Blood Urea Nitrogen 62 mg/dl Creatinine 3.79 mg/dl Est Creatinine Clear Calc Drug Dose 24.0 ml/min Estimated GFR () 18.5 Estimated GFR (Non- 15.9 BUN/Creatinine Ratio 16.5 Random Glucose 94 mg/dl Calcium Level 8.6 mg/dl Test 06/03/17 07:27 06/03/17 11:22 Bedside Glucose 82 mg/dl 118 mg/dl Assessment & Plan [id number]-oliguric-urinating well-unfortunately creatinine continues to trend up. does have some mild edema in the legs. would like to give normal saline at 50cc/hr to aide in renal recovery. if creatinine continues to trend up, may need tunneled line on Thursday. no indication for dialysis at this time.
[2017-06-03] MEDS ORDERED: SODIUM CHLORIDE 0.9% 1000ML 1,000 ML IV SCH (14:30)
[2017-06-03] MEDS ORDERED: HEPARIN IV LOW DOSE NO BOLUS SCH (14:45)
[2017-06-03 15:13] LABS: HEMATOCRIT 27.5 % (42-52); MEAN CELL VOLUME 86.2 fL (80-100); MEAN CORPUSCULAR HEMOGLOBIN 28.2 pg (25-34); MEAN PLATELET VOLUME 8.3 fL (7.4-10.4); NUCLEATED RED BLOOD CELL ABS 0.03 K/uL (0-0); PLATELET COUNT 197 K/uL (130-400); RED CELL DISTRIBUTION WIDTH CV 14.9 % (11.5-14.5); WHITE BLOOD COUNT 12.85 K/uL (4.8-10.8)
[2017-06-03] MEDS ORDERED: HEPARIN IV BOLUS 4,000 UNIT in SYRINGE 0 ML IV ONE (15:15)
[2017-06-03 15:25] LABS: PTT PATIENT 24.6 SECONDS (21.0-31.0)
[2017-06-03 15:26] LABS: MEAN CORPUSCULAR HGB CONC 32.7 g/dl (32-36)
[2017-06-03] MEDS: HEPARIN 25,000 UNIT/500ML D5W 500 ML IV PRN ×2 (16:08→22:59)
[2017-06-03] MEDS: ROSUVASTATIN CALCIUM 20 MG TAB PO SCH (21:42)
[2017-06-03] MEDS: GABAPENTIN 300 MG CAP PO SCH (21:42)
[2017-06-03 22:19] LABS: PTT PATIENT 31.7 SECONDS (21.0-31.0)
[2017-06-03] MEDS ORDERED: HEPARIN IV BOLUS 4,500 UNIT in SYRINGE 0 ML IV ONE (23:00)
[2017-06-04 00:13] VITALS: BP 153/89; PULSE 101; TEMP 37.1; O2SAT 94
[2017-06-04 03:43] VITALS: BP 123/86; PULSE 86; TEMP 37; O2SAT 93
[2017-06-04 05:10] LABS: HEMATOCRIT 26.2 % (42-52); HEMOGLOBIN 8.6 g/dL (14.0-18.0); MEAN CELL VOLUME 85.3 fL (80-100); MEAN CORPUSCULAR HGB CONC 32.8 g/dl (32-36); MEAN PLATELET VOLUME 8.3 fL (7.4-10.4); PLATELET COUNT 205 K/uL (130-400); RED CELL DISTRIBUTION WIDTH SD 45.6 fL (36.4-46.3); WHITE BLOOD COUNT 12.31 K/uL (4.8-10.8)
[2017-06-04 05:23] LABS: INR 1.1 (0.9-1.1)
[2017-06-04 05:36] LABS: CALCIUM 8.3 mg/dl (8.5-10.1); CREATININE 3.67 mg/dl (0.60-1.40); POTASSIUM 4.3 mmol/L (3.5-5.1)
[2017-06-04 05:52] LABS: PTT PATIENT 47.6 SECONDS (21.0-31.0)
--- NOTE | 2017-06-04 06:59 | Nephrology Progress Note ---
Nephrology Progress Note Date of Service: Jun 04, 2017. Subjective 62 yo male with flu/afib rate controlled/atn who required dialysis for worsening mental status/tremors/uremia and developed hematoma from catheter. dialysis was stopped since mentally better however creatinine was slowly worsening. given low rate of iv fluids and stopped them this morning. pt feels good. still with a dry cough, not loosening up. was able to walk around well yesterday. heparin restarted yesterday. Objective Date Time Temp Pulse Resp B/P (MAP) Pulse Ox O2 Delivery O2 Flow Rate FiO2 06/04/17 04:00 Nasal Cannula 2.0 06/04/17 03:43 37.0 86 16 123/86 (98) 93 Nasal Cannula 2.0 06/04/17 00:13 37.1 101 18 153/89 (110) 94 Nasal Cannula 2.0 06/04/17 00:00 Nasal Cannula 2.0 06/03/17 20:00 Room Air 06/03/17 19:26 36.9 105 18 137/96 (110) 99 Nasal Cannula 3.0 06/03/17 16:00 Room Air 06/03/17 12:00 91 Room Air 06/03/17 10:55 37.2 90 18 114/77 (89) 94 Room Air 06/03/17 08:00 91 Room Air Physical Exam: General-aaox3 Eyes-no scleral icterus ENT-mmm Neck-supple Lungs-cta Heart-irregularly irregular, 2/6 systolic murmur Abdomen-bs+ s/nt/nd Extremities-no c/c, +1 edema Neuro-nonfocal Current Inpatient Medications Medications (Trade) Dose Ordered Sig/Larry Route Start Time Stop Time Status Last Admin Dose Admin Acetaminophen (Tylenol Tab) 650 mg Q4H PRN PO 05/23/17 04:30 06/22/17 04:29 05/28/17 18:03 650 MG Nitroglycerin (Nitrostat Tab) 0.4 mg UD PRN SL 05/23/17 04:30 06/22/17 04:29 Hydromorphone HCl (Dilaudid Inj) 0.5 mg Q3H PRN IV 05/23/17 04:30 06/06/17 04:29 Tramadol HCl (Ultram Tab) not relieved ... Q6H PRN PO 05/23/17 04:30 3/5/18 04:29 Carvedilol (Coreg Tab) 12.5 mg BID PO 05/23/17 09:00 06/22/17 08:59 06/03/17 21:41 12.5 MG Duloxetine HCl (Cymbalta Cap) 60 mg DAILY PO 05/23/17 09:00 06/22/17 08:59 06/03/17 08:38 60 MG Pantoprazole Sodium (Protonix Tab) 40 mg QAM PO 05/23/17 09:00 06/22/17 08:59 06/03/17 08:37 40 MG Rosuvastatin Calcium (Crestor Tab) 40 mg HS PO 05/23/17 21:00 06/22/17 20:59 06/03/17 21:42 40 MG Prochlorperazine Edisylate 5 mg/ Syringe 5 ml @ 5 mls/min Q6H PRN IV 05/23/17 04:30 06/22/17 04:29 05/25/17 09:28 5 MLS/MIN Guaifenesin (Mucinex Contr Rel Tab) 600 mg BID PO 05/23/17 21:00 06/22/17 20:59 06/03/17 21:42 600 MG Ipratropium [place] (Atrovent 0.02% 0.5MG/2.5ML Neb) 0.5 mg Q4H PRN INH 05/23/17 05:15 06/22/17 05:14 05/25/17 00:20 0.5 MG Levalbuterol (Xopenex 1.25MG/ 0.5ML Neb) 1.25 mg Q4H PRN INH 05/23/17 05:15 06/22/17 05:14 05/25/17 00:20 1.25 MG Furosemide 40 mg/ Syringe 4 ml @ 4 mls/min DAILY IV 05/23/17 09:00 06/22/17 08:59 Future Hold 05/23/17 10:34 4 MLS/MIN Miscellaneous Information (Consult Glycemic Management Pharmacy) 1 ea UD N/A 05/23/17 09:48 06/22/17 09:47 Glucose (Glucose 40% Gel) 15-30 GRAMS 15 GRAMS... UD PRN PO 05/24/17 08:30 06/23/17 08:29 Glucose (Glucose Chew Tab) 4-8 Tablets 4 Tabl... UD PRN PO 05/24/17 08:30 06/23/17 08:29 Dextrose (Dextrose 50% 50ML Syringe) 25-50ML OF 50% DW IV FOR... UD PRN IV 05/24/17 08:30 06/23/17 08:29 05/27/17 23:29 25 ML Glucagon (Glucagon Inj) 1 mg UD PRN SQ 05/24/17 08:30 06/23/17 08:29 Gabapentin (Neurontin Cap) 300 mg HS PO 05/28/17 21:00 06/27/17 20:59 06/03/17 21:42 300 MG Polyethylene (Miralax Powder Packet) 17 gm DAILY PO 05/29/17 09:00 06/28/17 08:59 06/01/17 09:23 17 GM Insulin Aspart (novoLOG ASPART) SLIDING SCALE ACHS SC 05/29/17 12:00 06/28/17 11:59 06/03/17 21:46 5 UNITS Prednisone (PredniSONE TAB) 20 mg QD@1000 PO 06/02/17 10:00 07/02/17 09:59 06/03/17 10:00 20 MG Senna/Docusate Sodium (Senokot S Tab) 1 tab QAM PO 06/02/17 09:00 07/02/17 08:59 06/02/17 07:55 1 TAB Bisacodyl (Dulcolax Supp) 10 mg DAILY PRN [place] 06/01/17 13:15 07/01/17 13:14 Amiodarone HCl (Cordarone Tab) 200 mg BID PO 06/02/17 21:00 07/02/17 20:59 06/03/17 21:43 200 MG Insulin Glargine (Lantus Solostar Pen) 12 units BID SC 06/03/17 21:00 07/03/17 20:59 06/03/17 21:46 12 UNITS Heparin Sodium/ Dextrose 500 ml @ 23 mls/hr [id number] PRN IV 06/03/17 15:15 07/03/17 15:14 06/03/17 22:59 23 MLS/HR Last 24 Hours Test 06/03/17 07:27 06/03/17 11:22 06/03/17 15:01 06/03/17 16:25 Bedside Glucose 82 mg/dl 118 mg/dl 165 mg/dl White Blood Count 12.85 K/uL Red Blood Count 3.19 M/uL Hemoglobin 9.0 g/dL Hematocrit 27.5 % Mean Corpuscular Volume 86.2 fL Mean Corpuscular Hemoglobin 28.2 pg Mean Corpuscular Hemoglobin Concent 32.7 g/dl RDW Standard Deviation 46.0 fL RDW Coefficient of Variation 14.9 % Platelet Count 197 K/uL Mean Platelet Volume 8.3 fL Nucleated RBC Absolute Count (auto) 0.03 K/uL Nucleated Red Blood Cells % 0.2 % Prothrombin Time 11.0 SECONDS Prothromb Time International Ratio 1.0 Activated Partial Thromboplast Time 24.6 SECONDS Partial Thromboplastin Ratio 0.9 Test 06/03/17 20:38 06/03/17 21:57 06/04/17 04:56 Bedside Glucose 231 mg/dl Activated Partial Thromboplast Time 31.7 SECONDS 47.6 SECONDS Partial Thromboplastin Ratio 1.2 1.8 White Blood Count 12.31 K/uL Red Blood Count 3.07 M/uL Hemoglobin 8.6 g/dL Hematocrit 26.2 % Mean Corpuscular Volume 85.3 fL Mean Corpuscular Hemoglobin 28.0 pg Mean Corpuscular Hemoglobin Concent 32.8 g/dl RDW Standard Deviation 45.6 fL RDW Coefficient of Variation 15.0 % Platelet Count 205 K/uL Mean Platelet Volume 8.3 fL Prothrombin Time 11.2 SECONDS Prothromb Time International Ratio 1.1 Sodium Level 138 mmol/L Potassium Level 4.3 mmol/L Chloride Level 104 mmol/L Carbon Dioxide Level 26 mmol/L Anion Gap 8.0 mmol/L Blood Urea Nitrogen 65 mg/dl Creatinine 3.67 mg/dl Est Creatinine Clear Calc Drug Dose 24.8 ml/min Estimated GFR () 19.2 Estimated GFR (Non- 16.6 BUN/Creatinine Ratio 17.8 Random Glucose 148 mg/dl Calcium Level 8.3 mg/dl Assessment & Plan [id number]-oliguric-urinating well-creatinine improved mildly on the iv fluids. stopping the fluids with concern of volume overload. on heparin drip. in a holding pattern at this time, if creatinine continues to worsen, may need to restart dialysis and have a new catheter placed. so for now, holding coumadin and just doing heparin drip. once we determine whether we need dialysis or not, will resume coumadin. for now, stopped fluids and will follow creatinine trend.
[2017-06-04 07:22] VITALS: BP 128/87; PULSE 97; TEMP 36.9; O2SAT 94
[2017-06-04] MEDS: AMIODARONE 200 MG TAB PO SCH ×2 (07:32→21:12)
[2017-06-04] MEDS: POLYETHYLENE (MIRALAX) 17 GM PACK PO SCH (07:33)
[2017-06-04] MEDS: DULOXETINE HCL 60 MG CAP PO SCH (07:33)
[2017-06-04] MEDS: CARVEDILOL 12.5 MG TAB PO SCH ×2 (07:33→21:12)
[2017-06-04] MEDS: PANTOprazole SOD 40 MG TAB PO SCH (07:34)
[2017-06-04] MEDS: GUAIFENESIN 600 MG TABCR PO SCH ×2 (07:34→21:13)
[2017-06-04] MEDS: DOCUSATE SODIUM/SENNA 50/8.6MG TAB PO SCH (07:36)
[2017-06-04] MEDS: INSULIN ASPART 100 UNITS/ML 3 ML PEN SC SCH ×4 (08:13→21:11)
[2017-06-04] MEDS: INSULIN GLARGINE SOLOSTAR 100 UNITS/ML 3 ML PEN SC SCH ×2 (08:14→21:11)
--- NOTE | 2017-06-04 09:00 | Progress Note ---
Internal Med Progress Note Date of Service: Jun 04, 2017. Provider Documentation: SUBJECTIVE: Seen and examined at bedside Feels well Denies any bleeding issues Hb slightly dropped Denies chest pain, SOB, dizziness, abd pain OBJECTIVE: Vital Signs-as noted below Physical Exam: General Appearance:Moderately built and nourished, no apparent distress Head: normocephalic, Atraumatic Eyes: normal inspection, EOMI, PERRL Neck: supple, Trachea midline Respiratory/Chest: Normal breath sounds, CTA Cardiovascular: Irregularly irregular, + systolic murmur Abdomen/GI:Soft, Non tender, Bowel sounds present Extremities/Musculoskelatal:normal inspection, + B/L pretibial edema Neurologic/Psych:AAOX3, grossly no focal neurological deficits Skin: normal color, warm Lab data as noted below. ASSESSMENT & PLAN: Patient is a 62yr male with PMH of CHF with EF 35-40%, CAD, DM, HTN presenting with shortness of breath. Left retroperitoneal/Iliopsoas Hemorrhage S/P Left Fem HD cath placement 05/29/17 and removal on 06/01/17 CT Abd as below Hb:8.7>>9.2>>>8.6 S/P 2 units PRBCs Heparin restarted Monitor H&H warfarin, aspirin held for now Anemia Likely from Acute blood loss from hematoma, Kidney disease S/P 2 units PRBC Monitor Hb Procrit monitor Acute Hypoxic respiratory failure: multifactorial weaned off oxygen as able Influenza/B/L Pneumonia completed Tamiflu completed 7 days Cefepime + Doxy Possible Acute on Chronic CHF exacerbation s/p IV Lasix Lasix held for now due to Acute Renal Failure on CKD Abnormal CT chest: (+) pulmonary nodules, possible Aspergillosis vs Mets? Appreciate Pulmonary Input Needs repeat CT in 6-8 weeks and follow up with Pulmonology as outpatient ARPIT: Continue CPAP per Pulmonology PAM on CKD IV s/p IV Lasix and intermittent IV NSS Cr increased to 4s (+) altered mental status likely from Uremia, resolved Received 3 HDs so far: mental status back to baseline Cr: 3.67 today BUN in 60s Nephrology on board monitor renal function May need tunneled dialysis catheter for dialysis if renal function continues to worsen Possible Asthma Exacerbation on Nebs Continue Prednisone taper leukocytosis likely secondary to prednisone A Fib RVR rate controlled on Amiodarone PO, Carvedilol Warfarin, Aspirin held due to Hematoma amiodarone dose decreased to 200mh BID On Heparin for for anticoagulation HHS, DM II A1c 9.5 transitioned to ISS, Lantus HTN Stable d/c Amlodipine continue Carvedilol Nonocclusive CAD Plan to resume ASA if Hb stable Chronic thrombocytopenia: Stable monitor DVT Px: on IV heparin Disposition PT/OT may need Rehab/SNF upon discharge PROCEDURES: CT ABD: 1. Moderate left retroperitoneal hematoma emanating from the left iliopsoas muscle. 9 cm intramuscular hematoma in the left psoas. Trace retroperitoneal hemorrhage. 2. A hematocrit level within the hematoma suggests coagulopathy or anticoagulation. 3. Left common femoral venous catheter. This appears to be intravascular but the location of the terminus is difficult to confidently confirm without intravenous contrast. 4. Nodular opacities at the lung bases with peripheral groundglass. This can be seen in the setting of hemorrhagic metastases or angioinvasive aspergillosis among other etiologies. Correlate for immunocompromised status. 5. Anemia. Vital Signs: Date Time Temp Pulse Resp B/P (MAP) Pulse Ox O2 Delivery O2 Flow Rate FiO2 06/04/17 08:00 Room Air 2.0 06/04/17 07:22 36.9 97 18 128/87 (101) 94 Room Air 06/04/17 04:00 Nasal Cannula 2.0 06/04/17 03:43 37.0 86 16 123/86 (98) 93 Nasal Cannula 2.0 06/04/17 00:13 37.1 101 18 153/89 (110) 94 Nasal Cannula 2.0 06/04/17 00:00 Nasal Cannula 2.0 06/03/17 20:00 Room Air 06/03/17 19:26 36.9 105 18 137/96 (110) 99 Nasal Cannula 3.0 06/03/17 16:00 Room Air 06/03/17 12:00 91 Room Air 06/03/17 10:55 37.2 90 18 114/77 (89) 94 Room Air Lab Results: Results Past 24 Hours Test 06/03/17 11:22 06/03/17 15:01 06/03/17 16:25 06/03/17 20:38 Range/Units Bedside Glucose 118 165 231 70-99 mg/dl White Blood Count 12.85 4.8-10.8 K/uL Red Blood Count 3.19 4.7-6.1 M/uL Hemoglobin 9.0 14.0-18.0 g/dL Hematocrit 27.5 42-52 % Mean Corpuscular Volume 86.2 80-100 fL Mean Corpuscular Hemoglobin 28.2 25-34 pg Mean Corpuscular Hemoglobin Concent 32.7 32-36 g/dl RDW Standard Deviation 46.0 36.4-46.3 fL RDW Coefficient of Variation 14.9 11.5-14.5 % Platelet Count 197 130-400 K/uL Mean Platelet Volume 8.3 7.4-10.4 fL Nucleated RBC Absolute Count (auto) 0.03 0-0 K/uL Nucleated Red Blood Cells % 0.2 % Prothrombin Time 11.0 9.0-12.0 SECONDS Prothromb Time International Ratio 1.0 0.9-1.1 Activated Partial Thromboplast Time 24.6 21.0-31.0 SECONDS Partial Thromboplastin Ratio 0.9 Test 06/03/17 21:57 06/04/17 04:56 06/04/17 07:27 Range/Units Activated Partial Thromboplast Time 31.7 47.6 21.0-31.0 SECONDS Partial Thromboplastin Ratio 1.2 1.8 White Blood Count 12.31 4.8-10.8 K/uL Red Blood Count 3.07 4.7-6.1 M/uL Hemoglobin 8.6 14.0-18.0 g/dL Hematocrit 26.2 42-52 % Mean Corpuscular Volume 85.3 80-100 fL Mean Corpuscular Hemoglobin 28.0 25-34 pg Mean Corpuscular Hemoglobin Concent 32.8 32-36 g/dl RDW Standard Deviation 45.6 36.4-46.3 fL RDW Coefficient of Variation 15.0 11.5-14.5 % Platelet Count 205 130-400 K/uL Mean Platelet Volume 8.3 7.4-10.4 fL Prothrombin Time 11.2 9.0-12.0 SECONDS Prothromb Time International Ratio 1.1 0.9-1.1 Sodium Level 138 136-145 mmol/L Potassium Level 4.3 3.5-5.1 mmol/L Chloride Level 104 98-107 mmol/L Carbon Dioxide Level 26 21-32 mmol/L Anion Gap 8.0 3-11 mmol/L Blood Urea Nitrogen 65 7-18 mg/dl Creatinine 3.67 0.60-1.40 mg/dl Est Creatinine Clear Calc Drug Dose 24.8 ml/min Estimated GFR () 19.2 Estimated GFR (Non- 16.6 BUN/Creatinine Ratio 17.8 10-20 Random Glucose 148 70-99 mg/dl Calcium Level 8.3 8.5-10.1 mg/dl Bedside Glucose 119 70-99 mg/dl
--- NOTE | 2017-06-04 12:23 | Pharmacy Progress Note ---
Pharmacy Glycemic Short Note 2 Date of Service Jun 04, 2017. OUTPATIENT ANTIDIABETIC REGIMEN: * Novolog with meals - 7 units breakfast, 14 units lunch and dinner * Lantus 45 units HS * A1c = 9.2 % 05/23/17, although this result is likely somewhat unreliable d/t CKD ASSESSMENT: 06/03/17 * Patient has been requiring ~ 55 units of insulin per day for adequate control while on prednisone 20mg daily * 26 units of basal insulin with Lantus (13 units SQ BID) * 30 units of prandial/correctional insulin with NovoLog per CF/CR of 03/23 respectively * BSGs 06/01: 141, 179, 125, 195 * BSGs 06/02: 88, 195, 141, 228 * BSGs 06/03: 82 * Goal BSG range is <150 mg/dl to promote wound healing. * AM fasting BSG is slightly below goal range at 88mg/dl today. Decrease in basal insulin is warranted. * More CHO coverage is needed - BSG increased from in range to above range with meals. BSG corrects well whenever BSG is high pre-meal, therefore, patient receives extra coverage for elevated BSG. Will tighten CR but loosen CF to prevent hypo when additional CHO coverage is given and BSG is above goal range. 06/04/17 * Patient received 59 units of insulin yesterday with BSGs ranging from 119-231 mg/dL * Remains on prednisone 20 mg daily today, but will be decreased to 10 mg tomorrow * Fasting for today = 119 * Will continue same Lantus but decrease slightly for reduced prednisone dose starting tomorrow * Postprandial BSGs okay, except for HS that continues to be elevated * Will tighten CR for dinner only * Will reassess tomorrow if changes need made for lower prednisone dose PLAN FOR INPATIENT GLYCEMIC CONTROL: * Basal insulin: * Decrease to Lantus 11 units SQ BID in anticipation of decreased prednisone tomorrow * Bolus insulin: * NovoLog per scale ACHS or Q6hrs while NPO * Goal Range: Low 120 mg/dL - High 150 mg/dL * Correction Factor: 20 mg/dL/unit * Nutritional / Prandial insulin per carb ratio of 1 unit per 4 grams CHO consumed -> tighten to 3 for dinner only Thank you.
[2017-06-04 14:42] VITALS: BP 146/78; PULSE 84; TEMP 36.6; O2SAT 99
[2017-06-04] MEDS: HEPARIN 25,000 UNIT/500ML D5W 500 ML IV PRN (14:44)
[2017-06-04 16:05] LABS: HEMATOCRIT 26.2 % (42-52); HEMOGLOBIN 8.5 g/dL (14.0-18.0)
--- NOTE | 2017-06-04 17:23 | PROGRESS NOTE ---
DATE: 06/04/2017 CARDIOLOGY CONSULTATION FOLLOWUP NOTE SUBJECTIVE: The patient feels "okay" today, sitting upright in bed eating meal. Notes no chest pain or discomfort. Notes no shortness of breath. Notes no dizziness. Notes no lightheadedness. Notes no syncope or near syncope. Anticipates possible dialysis catheter insertion tomorrow. OBJECTIVE: VITAL SIGNS: Heart rate is 84, blood pressure is 146/78. NECK: Thick. There is no distinct jugular venous distention. LUNGS: Predominantly clear. CARDIOVASCULAR: Irregularly irregular. There is no S3 gallop. ABDOMEN: Soft, nondistended. EXTREMITIES: Without cyanosis or clubbing. There is no significant edema. LABORATORY DATA: Hemoglobin is 8.5. Sodium is 138, potassium is 4.3, chloride is 104, bicarbonate is 26, BUN is 65, and creatinine is 3.67. IMPRESSION: Complex 62-year-old male with issues as follows: 1. Acute influenza A with bilateral pneumonia. 2. Acute on chronic renal insufficiency, nonoliguric. 3. Left-sided retroperitoneal hematoma secondary to dialysis catheter, anticoagulation. 4. Nonischemic cardiomyopathy with compensated congestive heart failure. 5. New onset atrial fibrillation. RECOMMENDATIONS: Will continue anticoagulation with heparin. The patient is currently on amiodarone for rhythm and rate control. We will define further as clinical course progresses, potential benefits return to sinus rhythm. Will initiate anticoagulation, warfarin once dialysis catheter placed.
[2017-06-04 20:01] VITALS: BP 155/74; PULSE 87; TEMP 36.6; O2SAT 95
[2017-06-04] MEDS: ROSUVASTATIN CALCIUM 20 MG TAB PO SCH (21:12)
[2017-06-04] MEDS: GABAPENTIN 300 MG CAP PO SCH (21:12)
[2017-06-04 23:52] VITALS: BP 146/90; PULSE 91; TEMP 37; O2SAT 99
[2017-06-05 04:40] VITALS: BP 151/83; PULSE 62; TEMP 37; O2SAT 93
[2017-06-05 04:43] LABS: HEMATOCRIT 25.6 % (42-52); HEMOGLOBIN 8.5 g/dL (14.0-18.0); MEAN CORPUSCULAR HEMOGLOBIN 28.2 pg (25-34); MEAN CORPUSCULAR HGB CONC 33.2 g/dl (32-36); MEAN PLATELET VOLUME 8.3 fL (7.4-10.4); PLATELET COUNT 210 K/uL (130-400); RED CELL DISTRIBUTION WIDTH CV 14.9 % (11.5-14.5); RED CELL DISTRIBUTION WIDTH SD 46.1 fL (36.4-46.3); WHITE BLOOD COUNT 10.78 K/uL (4.8-10.8)
[2017-06-05 05:01] LABS: CALCIUM 8.3 mg/dl (8.5-10.1); CREATININE 3.45 mg/dl (0.60-1.40); POTASSIUM 4.5 mmol/L (3.5-5.1)
--- NOTE | 2017-06-05 05:39 | Nephrology Progress Note ---
Nephrology Progress Note Date of Service: Jun 05, 2017. Subjective 62 yo male with flu/afib rate controlled/atn who required dialysis for worsening mental status/tremors/uremia and developed hematoma from catheter. pt doing well. walking around well. has a dry cough and he is hoping it will loosen up. Objective Date Time Temp Pulse Resp B/P (MAP) Pulse Ox O2 Delivery O2 Flow Rate FiO2 06/05/17 04:40 37.0 62 18 151/83 (105) 93 Nasal Cannula 2.0 06/05/17 04:00 Nasal Cannula 2.0 06/05/17 00:00 Nasal Cannula 2.0 06/04/17 23:52 37.0 91 18 146/90 (108) 99 Nasal Cannula 2.0 06/04/17 20:01 36.6 87 18 155/74 (101) 95 Room Air 06/04/17 20:00 Room Air 06/04/17 16:00 Room Air 2.0 06/04/17 14:42 36.6 84 18 146/78 (100) 99 Nasal Cannula 2.0 06/04/17 12:00 Room Air 2.0 06/04/17 08:00 Room Air 2.0 06/04/17 07:22 36.9 97 18 128/87 (101) 94 Room Air Physical Exam: General-aaox3 Eyes-no scleral icterus ENT-mmm Neck-supple Lungs-clear Heart-irregularly irregular, 2/6 systolic murmur Abdomen-bs+ s/nt/nd Extremities-no c/c, +1 edema Neuro-nonfocal Current Inpatient Medications Medications (Trade) Dose Ordered Sig/Larry Route Start Time Stop Time Status Last Admin Dose Admin Acetaminophen (Tylenol Tab) 650 mg Q4H PRN PO 05/23/17 04:30 06/22/17 04:29 05/28/17 18:03 650 MG Nitroglycerin (Nitrostat Tab) 0.4 mg UD PRN SL 05/23/17 04:30 06/22/17 04:29 Hydromorphone HCl (Dilaudid Inj) 0.5 mg Q3H PRN IV 05/23/17 04:30 06/06/17 04:29 Tramadol HCl (Ultram Tab) not relieved ... Q6H PRN PO 05/23/17 04:30 06/22/17 04:29 Carvedilol (Coreg Tab) 12.5 mg BID PO 05/23/17 09:00 06/22/17 08:59 06/04/17 21:12 12.5 MG Duloxetine HCl (Cymbalta Cap) 60 mg DAILY PO 05/23/17 09:00 06/22/17 08:59 06/04/17 07:33 60 MG Pantoprazole Sodium (Protonix Tab) 40 mg QAM PO 05/23/17 09:00 06/22/17 08:59 06/04/17 07:34 40 MG Rosuvastatin Calcium (Crestor Tab) 40 mg HS PO 05/23/17 21:00 06/22/17 20:59 06/04/17 21:12 40 MG Prochlorperazine Edisylate 5 mg/ Syringe 5 ml @ 5 mls/min Q6H PRN IV 05/23/17 04:30 06/22/17 04:29 05/25/17 09:28 5 MLS/MIN Guaifenesin (Mucinex Contr Rel Tab) 600 mg BID PO 05/23/17 21:00 06/22/17 20:59 06/04/17 21:13 600 MG Ipratropium [place] (Atrovent 0.02% 0.5MG/2.5ML Neb) 0.5 mg Q4H PRN INH 05/23/17 05:15 06/22/17 05:14 05/25/17 00:20 0.5 MG Levalbuterol (Xopenex 1.25MG/ 0.5ML Neb) 1.25 mg Q4H PRN INH 05/23/17 05:15 06/22/17 05:14 05/25/17 00:20 1.25 MG Furosemide 40 mg/ Syringe 4 ml @ 4 mls/min DAILY IV 05/23/17 09:00 06/22/17 08:59 Future Hold 05/23/17 10:34 4 MLS/MIN Miscellaneous Information (Consult Glycemic Management Pharmacy) 1 ea UD N/A 05/23/17 09:48 06/22/17 09:47 Glucose (Glucose 40% Gel) 15-30 GRAMS 15 GRAMS... UD PRN PO 05/24/17 08:30 06/23/17 08:29 Glucose (Glucose Chew Tab) 4-8 Tablets 4 Tabl... UD PRN PO 05/24/17 08:30 06/23/17 08:29 Dextrose (Dextrose 50% 50ML Syringe) 25-50ML OF 50% DW IV FOR... UD PRN IV 05/24/17 08:30 06/23/17 08:29 05/27/17 23:29 25 ML Glucagon (Glucagon Inj) 1 mg UD PRN SQ 05/24/17 08:30 06/23/17 08:29 Gabapentin (Neurontin Cap) 300 mg HS PO 05/28/17 21:00 06/27/17 20:59 06/04/17 21:12 300 MG Polyethylene (Miralax Powder Packet) 17 gm DAILY PO 05/29/17 09:00 06/28/17 08:59 06/01/17 09:23 17 GM Senna/Docusate Sodium (Senokot S Tab) 1 tab QAM PO 06/02/17 09:00 07/02/17 08:59 06/02/17 07:55 1 TAB Bisacodyl (Dulcolax Supp) 10 mg DAILY PRN VT 06/01/17 13:15 07/01/17 13:14 Amiodarone HCl (Cordarone Tab) 200 mg BID PO 06/02/17 21:00 07/02/17 20:59 06/04/17 21:12 200 MG Heparin Sodium/ Dextrose 500 ml @ 25 mls/hr Q20H PRN IV 06/03/17 15:15 07/03/17 15:14 06/04/17 14:44 23 MLS/HR Prednisone (PredniSONE TAB) 10 mg DAILY@1000 PO 06/05/17 10:00 07/05/17 09:59 Insulin Aspart (novoLOG ASPART) SLIDING SCALE 0630,1100,2100 SC 06/04/17 11:00 07/04/17 10:59 06/04/17 21:11 5 UNITS Insulin Aspart (novoLOG ASPART) SLIDING SCALE DAILY@1630 SC 06/04/17 16:30 07/04/17 16:29 06/04/17 17:25 12 UNITS Insulin Glargine (Lantus Solostar Pen) 11 units BID SC 06/04/17 21:00 07/04/17 20:59 06/04/17 21:11 11 UNITS Heparin Sodium (Porcine) 3000 unit/Syringe 3 ml @ 10 mls/min NOW ONCE IV 06/05/17 05:45 06/05/17 05:46 Last 24 Hours Test 06/04/17 07:27 06/04/17 11:14 06/04/17 15:51 06/04/17 16:23 Bedside Glucose 119 mg/dl 149 mg/dl 152 mg/dl Hemoglobin 8.5 g/dL Hematocrit 26.2 % Test 06/04/17 19:50 06/05/17 04:34 Bedside Glucose 223 mg/dl White Blood Count 10.78 K/uL Red Blood Count 3.01 M/uL Hemoglobin 8.5 g/dL Hematocrit 25.6 % Mean Corpuscular Volume 85.0 fL Mean Corpuscular Hemoglobin 28.2 pg Mean Corpuscular Hemoglobin Concent 33.2 g/dl RDW Standard Deviation 46.1 fL RDW Coefficient of Variation 14.9 % Platelet Count 210 K/uL Mean Platelet Volume 8.3 fL Prothrombin Time 10.7 SECONDS Prothromb Time International Ratio 1.0 Activated Partial Thromboplast Time 43.0 SECONDS Partial Thromboplastin Ratio 1.7 Sodium Level 137 mmol/L Potassium Level 4.5 mmol/L Chloride Level 105 mmol/L Carbon Dioxide Level 25 mmol/L Anion Gap 7.0 mmol/L Blood Urea Nitrogen 63 mg/dl Creatinine 3.45 mg/dl Est Creatinine Clear Calc Drug Dose 26.5 ml/min Estimated GFR () 20.7 Estimated GFR (Non- 17.8 BUN/Creatinine Ratio 18.3 Random Glucose 153 mg/dl Calcium Level 8.3 mg/dl Assessment & Plan [id number]-oliguric-urinating well-creatinine stable off fluids. currently diuretics on hold as well. appears creatinine in the low to mid 3s for now. currently on heparin drip and ok to start coumadin. will hold on dialysis catheter and initiation of dialysis. hope to avoid it completely. hold diuretics over the weekend and consider restarting on thursday if ok with cardiology.
[2017-06-05] MEDS ORDERED: HEPARIN IV BOLUS 3,000 UNIT in SYRINGE 0 ML IV ONE ×2 (05:45→13:00)
[2017-06-05] MEDS: HEPARIN 25,000 UNIT/500ML D5W 500 ML IV PRN ×3 (06:03→13:20)
[2017-06-05] MEDS: POLYETHYLENE (MIRALAX) 17 GM PACK PO SCH (07:14)
[2017-06-05] MEDS: DOCUSATE SODIUM/SENNA 50/8.6MG TAB PO SCH (07:14)
[2017-06-05] MEDS: DULOXETINE HCL 60 MG CAP PO SCH (07:15)
[2017-06-05] MEDS: CARVEDILOL 12.5 MG TAB PO SCH ×2 (07:15→21:33)
[2017-06-05] MEDS: PANTOprazole SOD 40 MG TAB PO SCH (07:15)
[2017-06-05] MEDS: GUAIFENESIN 600 MG TABCR PO SCH ×2 (07:15→21:32)
[2017-06-05] MEDS: AMIODARONE 200 MG TAB PO SCH ×2 (07:15→21:33)
[2017-06-05 07:16] VITALS: BP 144/95; PULSE 91; TEMP 36.5; O2SAT 95
[2017-06-05] MEDS: INSULIN ASPART 100 UNITS/ML 3 ML PEN SC SCH ×4 (07:58→21:36)
[2017-06-05] MEDS: INSULIN GLARGINE SOLOSTAR 100 UNITS/ML 3 ML PEN SC SCH ×2 (07:59→21:36)
--- NOTE | 2017-06-05 09:41 | Progress Note ---
Internal Med Progress Note Date of Service: Jun 05, 2017. Provider Documentation: SUBJECTIVE: Seen and examined at bedside No new complaints States feeling well Denies any bleeding issues Hb stable Denies chest pain, SOB, dizziness, abd pain OBJECTIVE: Vital Signs-as noted below Physical Exam: General Appearance:Moderately built and nourished, no apparent distress Head: normocephalic, Atraumatic Eyes: normal inspection, EOMI, PERRL Neck: supple, Trachea midline Respiratory/Chest: Normal breath sounds, CTA Cardiovascular: Irregularly irregular, + systolic murmur Abdomen/GI:Soft, Non tender, Bowel sounds present Extremities/Musculoskelatal:normal inspection, + B/L pretibial edema Neurologic/Psych:AAOX3, grossly no focal neurological deficits Skin: normal color, warm Lab data as noted below. ASSESSMENT & PLAN: Patient is a 62yr male with PMH of CHF with EF 35-40%, CAD, DM, HTN presenting with shortness of breath. Left retroperitoneal/Iliopsoas Hemorrhage S/P Left Fem HD cath placement 05/29/17 and removal on 06/01/17 CT Abd as below Hb:8.7>>9.2>>>8.5 S/P 2 units PRBCs Continue Heparin Monitor H&H Restart Coumadin today Plan to resume Aspirin as able Anemia Likely from Acute blood loss from hematoma, Kidney disease S/P 2 units PRBC Monitor Hb Procrit monitor Acute Hypoxic respiratory failure: multifactorial weaned off oxygen as able Influenza/B/L Pneumonia completed Tamiflu completed 7 days Cefepime + Doxy Possible Acute on Chronic CHF exacerbation s/p IV Lasix Lasix held for now due to Acute Renal Failure on CKD Plan to resume diuretics on Thursday if renal function better Abnormal CT chest: (+) pulmonary nodules, possible Aspergillosis vs Mets? Appreciate Pulmonary Input Needs repeat CT in 6-8 weeks and follow up with Pulmonology as outpatient ARPIT: Continue CPAP per Pulmonology PAM on CKD IV s/p IV Lasix and intermittent IV NSS Cr increased to 4s (+) altered mental status likely from Uremia, resolved Received 3 HDs so far: mental status back to baseline Cr: 3.4 today BUN in 60s Nephrology on board monitor renal function Trying to avoid dialysis if able Renal function very slowing improving Possible Asthma Exacerbation on Nebs Continue Prednisone taper leukocytosis normalized A Fib RVR rate controlled on Amiodarone PO, Carvedilol amiodarone dose decreased to 200mh BID On Heparin for for anticoagulation Restarted Coumadin HHS, DM II A1c 9.5 transitioned to ISS, Lantus HTN Stable d/c Amlodipine continue Carvedilol Nonocclusive CAD Plan to resume ASA if Hb stable Chronic thrombocytopenia: Stable monitor DVT Px: on IV heparin, Coumadin Disposition PT/OT may need Rehab/SNF upon discharge PROCEDURES: CT ABD: 1. Moderate left retroperitoneal hematoma emanating from the left iliopsoas muscle. 9 cm intramuscular hematoma in the left psoas. Trace retroperitoneal hemorrhage. 2. A hematocrit level within the hematoma suggests coagulopathy or anticoagulation. 3. Left common femoral venous catheter. This appears to be intravascular but the location of the terminus is difficult to confidently confirm without intravenous contrast. 4. Nodular opacities at the lung bases with peripheral groundglass. This can be seen in the setting of hemorrhagic metastases or angioinvasive aspergillosis among other etiologies. Correlate for immunocompromised status. 5. Anemia. Vital Signs: Date Time Temp Pulse Resp B/P (MAP) Pulse Ox O2 Delivery O2 Flow Rate FiO2 06/05/17 08:00 Room Air 2.0 06/05/17 07:16 36.5 91 18 144/95 (111) 95 Nasal Cannula 2.0 06/05/17 04:40 37.0 62 18 151/83 (105) 93 Nasal Cannula 2.0 06/05/17 04:00 Nasal Cannula 2.0 06/05/17 00:00 Nasal Cannula 2.0 06/04/17 23:52 37.0 91 18 146/90 (108) 99 Nasal Cannula 2.0 06/04/17 20:01 36.6 87 18 155/74 (101) 95 Room Air 06/04/17 20:00 Room Air 06/04/17 16:00 Room Air 2.0 06/04/17 14:42 36.6 84 18 146/78 (100) 99 Nasal Cannula 2.0 06/04/17 12:00 Room Air 2.0 Lab Results: Results Past 24 Hours Test 06/04/17 11:14 06/04/17 15:51 06/04/17 16:23 06/04/17 19:50 Range/Units Bedside Glucose 149 152 223 70-99 mg/dl Hemoglobin 8.5 14.0-18.0 g/dL Hematocrit 26.2 42-52 % Test 06/05/17 04:34 Range/Units White Blood Count 10.78 4.8-10.8 K/uL Red Blood Count 3.01 4.7-6.1 M/uL Hemoglobin 8.5 14.0-18.0 g/dL Hematocrit 25.6 42-52 % Mean Corpuscular Volume 85.0 80-100 fL Mean Corpuscular Hemoglobin 28.2 25-34 pg Mean Corpuscular Hemoglobin Concent 33.2 32-36 g/dl RDW Standard Deviation 46.1 36.4-46.3 fL RDW Coefficient of Variation 14.9 11.5-14.5 % Platelet Count 210 130-400 K/uL Mean Platelet Volume 8.3 7.4-10.4 fL Prothrombin Time 10.7 9.0-12.0 SECONDS Prothromb Time International Ratio 1.0 0.9-1.1 Activated Partial Thromboplast Time 43.0 21.0-31.0 SECONDS Partial Thromboplastin Ratio 1.7 Sodium Level 137 136-145 mmol/L Potassium Level 4.5 3.5-5.1 mmol/L Chloride Level 105 98-107 mmol/L Carbon Dioxide Level 25 21-32 mmol/L Anion Gap 7.0 3-11 mmol/L Blood Urea Nitrogen 63 7-18 mg/dl Creatinine 3.45 0.60-1.40 mg/dl Est Creatinine Clear Calc Drug Dose 26.5 ml/min Estimated GFR () 20.7 Estimated GFR (Non- 17.8 BUN/Creatinine Ratio 18.3 10-20 Random Glucose 153 70-99 mg/dl Calcium Level 8.3 8.5-10.1 mg/dl
[2017-06-05 11:47] VITALS: BP 146/75; PULSE 84; TEMP 36.9; O2SAT 95
[2017-06-05 12:12] LABS: PTT PATIENT 44.8 SECONDS (21.0-31.0)
--- NOTE | 2017-06-05 15:08 | Pharmacy Progress Note ---
Pharmacy Glycemic Short Note 2 Date of Service Jun 05, 2017. OUTPATIENT ANTIDIABETIC REGIMEN: * Novolog with meals - 7 units breakfast, 14 units lunch and dinner * Lantus 45 units HS * A1c = 9.2 % 05/23/17, although this result is likely somewhat unreliable d/t CKD ASSESSMENT: 06/03/17 * Patient has been requiring ~ 55 units of insulin per day for adequate control while on prednisone 20mg daily * 26 units of basal insulin with Lantus (13 units SQ BID) * 30 units of prandial/correctional insulin with NovoLog per CF/CR of 03/23 respectively * BSGs 06/01: 141, 179, 125, 195 * BSGs 06/02: 88, 195, 141, 228 * BSGs 06/03: 82 * Goal BSG range is <150 mg/dl to promote wound healing. * AM fasting BSG is slightly below goal range at 88mg/dl today. Decrease in basal insulin is warranted. * More CHO coverage is needed - BSG increased from in range to above range with meals. BSG corrects well whenever BSG is high pre-meal, therefore, patient receives extra coverage for elevated BSG. Will tighten CR but loosen CF to prevent hypo when additional CHO coverage is given and BSG is above goal range. 06/04/17 * Patient received 59 units of insulin yesterday with BSGs ranging from 119-231 mg/dL * Remains on prednisone 20 mg daily today, but will be decreased to 10 mg tomorrow * Fasting for today = 119 * Will continue same Lantus but decrease slightly for reduced prednisone dose starting tomorrow * Postprandial BSGs okay, except for HS that continues to be elevated * Will tighten CR for dinner only * Will reassess tomorrow if changes need made for lower prednisone dose 06/05/17 * Patient received 65 units of insulin yesterday * Prednisone decreased from 20 mg to 10 mg daily starting today * Lantus was already decreased last evening * I initially loosened the CR this AM for the decrease in prednisone dose but pre-lunch BSG elevated so I will tighten back to previous parameters PLAN FOR INPATIENT GLYCEMIC CONTROL: * Basal insulin: * Continue Lantus 11 units BID * Bolus insulin: no change from yesterday * NovoLog per scale ACHS or Q6hrs while NPO * Goal Range: Low 110 mg/dL - High 140 mg/dL * Correction Factor: 20 mg/dL/unit * Nutritional / Prandial insulin per carb ratio of 1 unit per 4 grams CHO consumed -> 3 for dinner only Thank you.
[2017-06-05 15:19] VITALS: BP 153/98; PULSE 90; TEMP 36.5; O2SAT 95
[2017-06-05] MEDS: WARFARIN SOD 5 MG TAB PO SCH (17:29)
--- NOTE | 2017-06-05 18:36 | CARDIOLOGY PROGRESS NOTE ---
DATE: 06/05/2017 The patient seen and examined. Chart, medications, telemetry reviewed. SUBJECTIVE: The patient feels better today. Notes no chest pains. Notes no tachypalpitations. Notes no dizziness or lightheadedness. He remains in atrial fibrillation with generally controlled ventricular response. Renal function is gradually improving. Respiratory status remains relatively good. Notes loose rhonchorous cough but nonproductive. OBJECTIVE: VITAL SIGNS: Heart rate is 88, blood pressure is 153/98. HEENT: Normocephalic and atraumatic. NECK: Thick. There is no distinct jugular venous distention. LUNGS: Reveal rhonchorous sounds at the left base. CARDIOVASCULAR: Irregularly irregular. There is no S3 gallop. ABDOMEN: Soft, nontender. There is no palpable splenomegaly. There is no hepatojugular reflux. EXTREMITIES: Without cyanosis or clubbing. There is no peripheral edema. LABORATORY STUDIES: Sodium is 137, potassium is 4.5, chloride is 105, bicarb is 25, BUN is 63, creatinine is 3.45, glucose is 136. EKG this morning reveals atrial fibrillation, rate 84 beats per minute, left bundle branch block, QT corrected at 553. IMPRESSION: Complex 62-year-old male whose history is notable for nonischemic cardiomyopathy, admitted with acute respiratory failure secondary to influenza A, complicated by acute renal insufficiency, newly noted atrial fibrillation. The patient appears to be gradually improving, renal function has stabilized. We will plan on initiating full anticoagulation with warfarin, continue current medications as prescribed and holding diuretics further at this time as no need indicated by exam. We will continue amiodarone which has been used for rate control. May consider attempt to return to sinus rhythm depending on clinical course after full anticoagulation for at least 3 weeks. We will make further adjustments in medications and follow on hospital as indicated.
[2017-06-05 18:55] LABS: PTT PATIENT 64.1 SECONDS (21.0-31.0)
[2017-06-05 19:41] VITALS: BP 145/96; PULSE 91; TEMP 36.7; O2SAT 96
[2017-06-05] MEDS: ROSUVASTATIN CALCIUM 20 MG TAB PO SCH (21:32)
[2017-06-05] MEDS: GABAPENTIN 300 MG CAP PO SCH (21:33)
[2017-06-05 23:29] VITALS: BP 154/87; PULSE 90; TEMP 36.6; O2SAT 96
[2017-06-06] VITALS (9 sets, daily range): BP systolic 111–164; BP diastolic 78–98; PULSE 80–103; TEMP 36.6–37.2; O2SAT 92–98
[2017-06-06 04:46] LABS: HEMATOCRIT 25.9 % (42-52); HEMOGLOBIN 8.6 g/dL (14.0-18.0)
[2017-06-06 04:52] LABS: PTT PATIENT 37.8 SECONDS (21.0-31.0)
[2017-06-06 05:04] LABS: CALCIUM 8.3 mg/dl (8.5-10.1); CREATININE 3.26 mg/dl (0.60-1.40); POTASSIUM 4.8 mmol/L (3.5-5.1)
[2017-06-06] MEDS ORDERED: HEPARIN IV BOLUS 4,500 UNIT in SYRINGE 0 ML IV ONE (05:30)
[2017-06-06] MEDS: HEPARIN 25,000 UNIT/500ML D5W 500 ML IV PRN ×3 (05:43→23:05)
[2017-06-06] MEDS: GUAIFENESIN 600 MG TABCR PO SCH ×2 (08:49→20:43)
[2017-06-06] MEDS: DOCUSATE SODIUM/SENNA 50/8.6MG TAB PO SCH (08:50)
[2017-06-06] MEDS: POLYETHYLENE (MIRALAX) 17 GM PACK PO SCH (08:50)
[2017-06-06] MEDS: PANTOprazole SOD 40 MG TAB PO SCH (08:50)
[2017-06-06] MEDS: AMIODARONE 200 MG TAB PO SCH ×2 (08:51→20:45)
[2017-06-06] MEDS: DULOXETINE HCL 60 MG CAP PO SCH (08:51)
[2017-06-06] MEDS: CARVEDILOL 12.5 MG TAB PO SCH ×2 (08:51→20:44)
[2017-06-06] MEDS: INSULIN ASPART 100 UNITS/ML 3 ML PEN SC SCH ×4 (08:55→21:00)
[2017-06-06] MEDS: INSULIN GLARGINE SOLOSTAR 100 UNITS/ML 3 ML PEN SC SCH ×2 (08:56→21:27)
--- NOTE | 2017-06-06 11:01 | Pharmacy Progress Note ---
Pharmacy Glycemic Short Note 2 Date of Service Jun 06, 2017. OUTPATIENT ANTIDIABETIC REGIMEN: * Novolog with meals - 7 units breakfast, 14 units lunch and dinner * Lantus 45 units HS * A1c = 9.2 % 05/23/17, although this result is likely somewhat unreliable d/t CKD ASSESSMENT: 06/03/17 * Patient has been requiring ~ 55 units of insulin per day for adequate control while on prednisone 20mg daily * 26 units of basal insulin with Lantus (13 units SQ BID) * 30 units of prandial/correctional insulin with NovoLog per CF/CR of 03/23 respectively * BSGs 06/01: 141, 179, 125, 195 * BSGs 06/02: 88, 195, 141, 228 * BSGs 06/03: 82 * Goal BSG range is <150 mg/dl to promote wound healing. * AM fasting BSG is slightly below goal range at 88mg/dl today. Decrease in basal insulin is warranted. * More CHO coverage is needed - BSG increased from in range to above range with meals. BSG corrects well whenever BSG is high pre-meal, therefore, patient receives extra coverage for elevated BSG. Will tighten CR but loosen CF to prevent hypo when additional CHO coverage is given and BSG is above goal range. 06/04/17 * Patient received 59 units of insulin yesterday with BSGs ranging from 119-231 mg/dL * Remains on prednisone 20 mg daily today, but will be decreased to 10 mg tomorrow * Fasting for today = 119 * Will continue same Lantus but decrease slightly for reduced prednisone dose starting tomorrow * Postprandial BSGs okay, except for HS that continues to be elevated * Will tighten CR for dinner only * Will reassess tomorrow if changes need made for lower prednisone dose 06/05/17 * Patient received 65 units of insulin yesterday * Prednisone decreased from 20 mg to 10 mg daily starting today * Lantus was already decreased last evening * I initially loosened the CR this AM for the decrease in prednisone dose but pre-lunch BSG elevated so I will tighten back to previous parameters 06/06/17 * Patient received 60 units of insulin yesterday * Causes of insulin resistance remain the same - still on prednisone 10 mg daily * Fasting BS - will lower basal slightly by ~10% * Postprandial BSGs yesterday: 203, 215, 150 * Tightened CR of 3 with dinner worked great, CR for other meals was tightened back to 4 later in the day so we have not seen full effects of this w/ current prednisone dose PLAN FOR INPATIENT GLYCEMIC CONTROL: * Basal insulin: * DECREASE Lantus to 10 units BID * Bolus insulin: no change from yesterday * NovoLog per scale ACHS or Q6hrs while NPO * Goal Range: Low 110 mg/dL - High 140 mg/dL * Correction Factor: 20 mg/dL/unit * Nutritional / Prandial insulin per carb ratio of 1 unit per 4 grams CHO consumed -> 3 for dinner only Thank you.
[2017-06-06 12:25] LABS: PTT PATIENT 65.1 SECONDS (21.0-31.0)
--- NOTE | 2017-06-06 14:06 | PROGRESS NOTE ---
DATE: 06/06/2017 CARDIOLOGY CONSULTATION FOLLOWUP NOTE The patient seen and examined. Chart, medications, telemetry reviewed. SUBJECTIVE: The patient notes no complaints. He is attempting to follow fluid-restricted diet. Notes no chest pains, dizziness, lightheadedness, syncope or near syncope. Notes no tachypalpitations. He remains in atrial fibrillation. OBJECTIVE: VITAL SIGNS: Heart rate is 90, blood pressure is 154/87, and weight is stable. NECK: Thick. There is no jugular venous distention. There are no carotid bruits. LUNGS: Reveal mildly diminished breath sounds with scattered wheezes at the right base, clear partially with cough. CARDIOVASCULAR: Irregularly irregular. There is no S3 gallop. ABDOMEN: Soft. EXTREMITIES: Reveal 1-2+ lower extremity edema. LABORATORY DATA: PTT is 65. INR is 1.0. Sodium is 140, potassium is 4.8, chloride is 107, bicarbonate is 26, BUN is 58, and creatinine is 3.26. IMPRESSION: Complex 62-year-old male with issues as follows: 1. Acute respiratory failure secondary to influenza A with bilateral pneumonia. 2. Nonischemic cardiomyopathy. 3. Acute on chronic renal insufficiency secondary to acute illness. 4. New onset atrial fibrillation with rate control, anticoagulation currently. RECOMMENDATIONS: The patient appears to be gradually improving as is renal function. Blood pressures are starting to trend higher; enalapril, amlodipine, and isosorbide discontinued on admission and will be reinstituted afterload reduction with Isordil and hydralazine, to begin with low dose initially. Rhythm controlled, will be continued with carvedilol and amiodarone. Anticoagulation has been initiated with warfarin and ____ heparin. No diuretics currently administered and renal function appears to be gradually improving. Will continue to follow patient in the hospital.
[2017-06-06] MEDS: ISOSORBIDE DINITRATE 20 MG TAB PO SCH (15:26)
--- NOTE | 2017-06-06 15:41 | Progress Note ---
Internal Med Progress Note Date of Service: Jun 06, 2017. Provider Documentation: SUBJECTIVE: Seen and examined at bedside Denies any bleeding issues Continues to be in afib Hb stable Intermittent cough Denies chest pain, SOB, dizziness, abd pain OBJECTIVE: Vital Signs-as noted below Physical Exam: General Appearance:Moderately built and nourished, no apparent distress Head: normocephalic, Atraumatic Eyes: normal inspection, EOMI, PERRL Neck: supple, Trachea midline Respiratory/Chest: Normal breath sounds, scattered wheezes Cardiovascular: Irregularly irregular, + systolic murmur Abdomen/GI:Soft, Non tender, Bowel sounds present Extremities/Musculoskelatal:normal inspection, + B/L pretibial edema Neurologic/Psych:AAOX3, grossly no focal neurological deficits Skin: normal color, warm Lab data as noted below. ASSESSMENT & PLAN: Patient is a 62yr male with PMH of CHF with EF 35-40%, CAD, DM, HTN presenting with shortness of breath. Left retroperitoneal/Iliopsoas Hemorrhage S/P Left Fem HD cath placement 05/29/17 and removal on 06/01/17 CT Abd as below Hb:8.7>>9.2>>>8.6 S/P 2 units PRBCs Continue Heparin Monitor H&H continue Coumadin Plan to resume Aspirin as able Anemia Likely from Acute blood loss from hematoma, Kidney disease S/P 2 units PRBC Monitor Hb Procrit monitor Acute Hypoxic respiratory failure: multifactorial weaned off oxygen as able Influenza/B/L Pneumonia completed Tamiflu completed 7 days Cefepime + Doxy Possible Acute on Chronic CHF exacerbation s/p IV Lasix Lasix held for now due to Acute Renal Failure on CKD Plan to resume diuretics on Thursday if renal function better Continue Imdur, Hydralazine, Coreg Abnormal CT chest: (+) pulmonary nodules, possible Aspergillosis vs Mets? Appreciate Pulmonary Input Needs repeat CT in 6-8 weeks and follow up with Pulmonology as outpatient ARPIT: Continue CPAP per Pulmonology PAM on CKD IV s/p IV Lasix and intermittent IV NSS Cr increased to 4s (+) altered mental status likely from Uremia, resolved Received 3 HDs so far: mental status back to baseline Cr: 3.26 today BUN trending down Nephrology on board monitor renal function Trying to avoid dialysis if able Renal function very slowing improving Possible Asthma Exacerbation on Nebs Continue Prednisone taper leukocytosis normalized A Fib RVR rate controlled on Amiodarone PO, Carvedilol amiodarone dose decreased to 200mh BID On Heparin for for anticoagulation continue Coumadin monitor INR:1.0 HHS, DM II A1c 9.5 transitioned to ISS, Lantus HTN continue current medications Nonocclusive CAD Plan to resume ASA as able Chronic thrombocytopenia: Stable monitor DVT Px: on IV heparin, Coumadin Disposition PT/OT may need Rehab/SNF upon discharge PROCEDURES: CT ABD: 1. Moderate left retroperitoneal hematoma emanating from the left iliopsoas muscle. 9 cm intramuscular hematoma in the left psoas. Trace retroperitoneal hemorrhage. 2. A hematocrit level within the hematoma suggests coagulopathy or anticoagulation. 3. Left common femoral venous catheter. This appears to be intravascular but the location of the terminus is difficult to confidently confirm without intravenous contrast. 4. Nodular opacities at the lung bases with peripheral groundglass. This can be seen in the setting of hemorrhagic metastases or angioinvasive aspergillosis among other etiologies. Correlate for immunocompromised status. 5. Anemia. Vital Signs: Date Time Temp Pulse Resp B/P (MAP) Pulse Ox O2 Delivery O2 Flow Rate FiO2 06/06/17 15:26 80 163/84 (110) 06/06/17 15:23 36.7 80 20 164/95 (118) 97 Room Air 06/06/17 12:00 Room Air 06/06/17 11:58 37.2 96 18 147/94 (111) 98 Nasal Cannula 2.0 06/06/17 08:00 Room Air 06/06/17 07:03 36.9 81 20 137/87 (104) 92 Room Air 06/06/17 04:07 36.8 103 20 137/80 (99) 98 2.0 06/06/17 04:00 Nasal Cannula 2.0 06/06/17 00:00 Nasal Cannula 2.0 06/05/17 23:29 36.6 90 18 154/87 (109) 96 Nasal Cannula 2.0 06/05/17 20:00 Nasal Cannula 2.0 06/05/17 19:41 36.7 91 18 145/96 (112) 96 Room Air 06/05/17 16:00 Room Air 2.0 Lab Results: Results Past 24 Hours Test 06/05/17 16:30 06/05/17 18:22 06/05/17 20:14 06/06/17 04:27 Range/Units Bedside Glucose 215 150 70-99 mg/dl Activated Partial Thromboplast Time 64.1 37.8 21.0-31.0 SECONDS Partial Thromboplastin Ratio 2.5 1.5 Hemoglobin 8.6 14.0-18.0 g/dL Hematocrit 25.9 42-52 % Prothrombin Time 10.7 9.0-12.0 SECONDS Prothromb Time International Ratio 1.0 0.9-1.1 Sodium Level 140 136-145 mmol/L Potassium Level 4.8 3.5-5.1 mmol/L Chloride Level 107 98-107 mmol/L Carbon Dioxide Level 26 21-32 mmol/L Anion Gap 7.0 3-11 mmol/L Blood Urea Nitrogen 58 7-18 mg/dl Creatinine 3.26 0.60-1.40 mg/dl Est Creatinine Clear Calc Drug Dose 28.0 ml/min Estimated GFR () 22.1 Estimated GFR (Non- 19.1 BUN/Creatinine Ratio 17.7 10-20 Random Glucose 96 70-99 mg/dl Calcium Level 8.3 8.5-10.1 mg/dl Test 06/06/17 07:06 06/06/17 11:37 06/06/17 11:42 Range/Units Bedside Glucose 96 169 70-99 mg/dl Activated Partial Thromboplast Time 65.1 21.0-31.0 SECONDS Partial Thromboplastin Ratio 2.5
[2017-06-06] MEDS: WARFARIN SOD 5 MG TAB PO SCH (15:50)
[2017-06-06] MEDS: HydrALAZINE 10 MG TAB PO SCH (17:37)
[2017-06-06] MEDS: GABAPENTIN 300 MG CAP PO SCH (20:43)
[2017-06-06] MEDS: ROSUVASTATIN CALCIUM 20 MG TAB PO SCH (20:45)
[2017-06-07] VITALS (8 sets, daily range): BP systolic 112–150; BP diastolic 73–89; PULSE 76–102; TEMP 36.7–37.1; O2SAT 93–100
[2017-06-07 05:06] LABS: MEAN CELL VOLUME 85.7 fL (80-100); MEAN CORPUSCULAR HEMOGLOBIN 28.6 pg (25-34); MEAN CORPUSCULAR HGB CONC 33.3 g/dl (32-36); PLATELET COUNT 182 K/uL (130-400); RED CELL DISTRIBUTION WIDTH CV 14.8 % (11.5-14.5); WHITE BLOOD COUNT 9.61 K/uL (4.8-10.8)
[2017-06-07 05:22] LABS: CALCIUM 8.1 mg/dl (8.5-10.1); CREATININE 3.01 mg/dl (0.60-1.40); POTASSIUM 4.5 mmol/L (3.5-5.1)
[2017-06-07 05:24] LABS: INR 1.2 (0.9-1.1)
[2017-06-07 05:28] LABS: PTT PATIENT 68.9 SECONDS (21.0-31.0)
[2017-06-07] MEDS: POLYETHYLENE (MIRALAX) 17 GM PACK PO SCH (07:42)
[2017-06-07] MEDS: DOCUSATE SODIUM/SENNA 50/8.6MG TAB PO SCH (07:42)
[2017-06-07] MEDS: ISOSORBIDE DINITRATE 20 MG TAB PO SCH ×2 (07:42→12:00)
[2017-06-07] MEDS: DULOXETINE HCL 60 MG CAP PO SCH (08:57)
[2017-06-07] MEDS: CARVEDILOL 12.5 MG TAB PO SCH ×2 (08:57→20:34)
[2017-06-07] MEDS: AMIODARONE 200 MG TAB PO SCH ×2 (08:58→20:36)
[2017-06-07] MEDS: GUAIFENESIN 600 MG TABCR PO SCH ×2 (08:58→20:35)
[2017-06-07] MEDS: PANTOprazole SOD 40 MG TAB PO SCH (08:58)
[2017-06-07] MEDS: HydrALAZINE 10 MG TAB PO SCH ×2 (09:00→17:25)
[2017-06-07] MEDS: INSULIN GLARGINE SOLOSTAR 100 UNITS/ML 3 ML PEN SC SCH ×2 (09:04→20:44)
[2017-06-07] MEDS: INSULIN ASPART 100 UNITS/ML 3 ML PEN SC SCH ×4 (09:04→20:43)
--- NOTE | 2017-06-07 12:01 | PROGRESS NOTE ---
DATE: 06/07/2017 CARDIOLOGY CONSULTATION FOLLOWUP NOTE SUBJECTIVE: The patient seen and examined. Chart, medications, telemetry reviewed. Denies any specific complaints, chest pain or discomfort. Notes no dizziness or lightheadedness. Still has a rhonchorous cough, mildly productive. Notes ____ abdominal pain. Notes no melena, hematochezia, dysuria or hematuria. Notes no back pain or discomfort. OBJECTIVE: VITAL SIGNS: Heart rate is 99, blood pressure is 112/74. HEENT: Normocephalic, atraumatic. NECK: Thin. There is no jugular venous distention. No carotid bruits. LUNGS: Clear to auscultation at the apices with coarse rhonchorous sounds at the base, right greater than left. CARDIOVASCULAR: Irregularly irregular with a grade 1/6 systolic murmur. There is no diastolic murmur. ABDOMEN: Soft, nontender. EXTREMITIES: Without cyanosis or clubbing. There is 1-2+ pedal edema. LABORATORY DATA: White cell count is 9.6, hemoglobin is 8.0. Sodium is 139, potassium is 4.5, chloride is 108, bicarbonate is 26, BUN is 54, creatinine is 3.0. IMPRESSION: A 62-year-old male with complex underlying history and recent events, issues as follows: 1. Acute respiratory failure secondary to influenza A with bilateral pneumonia. 2. Nonischemic cardiomyopathy with acute on chronic decompensation. 3. Acute on chronic renal insufficiency secondary to acute illness. 4. New onset atrial fibrillation, rate being controlled with combination of therapies on anticoagulation with heparin. 5. Retroperitoneal hemorrhage secondary to dialysis femoral sheath insertion. RECOMMENDATIONS: 1. Continue current dosing of amiodarone and carvedilol for rhythm and rate control. 2. Convert anticoagulation from heparin to warfarin as already initiated. 3. Afterload reduction with combination of hydralazine and nitrates. 4. Will continue to follow patient in the hospital.
--- NOTE | 2017-06-07 13:11 | Progress Note ---
Internal Med Progress Note Date of Service: Jun 07, 2017. Provider Documentation: SUBJECTIVE: Seen and examined at bedside No new complaints Still has cough Denies any bleeding issues Hb dropped to 8.0 today Denies chest pain, SOB, dizziness, abd pain OBJECTIVE: Vital Signs-as noted below Physical Exam: General Appearance:Moderately built and nourished, no apparent distress Head: normocephalic, Atraumatic Eyes: normal inspection, EOMI, PERRL Neck: supple, Trachea midline Respiratory/Chest: Normal breath sounds, scattered rhonchi Cardiovascular: Irregularly irregular, + systolic murmur Abdomen/GI:Soft, Non tender, Bowel sounds present Extremities/Musculoskelatal:normal inspection, + B/L pretibial edema Neurologic/Psych:AAOX3, grossly no focal neurological deficits Skin: normal color, warm Lab data as noted below. ASSESSMENT & PLAN: Patient is a 62yr male with PMH of CHF with EF 35-40%, CAD, DM, HTN presenting with shortness of breath. Left retroperitoneal/Iliopsoas Hemorrhage S/P Left Fem HD cath placement 05/29/17 and removal on 06/01/17 CT Abd as below Hb:8.7>>9.2>>>8.6>>8.0 S/P 2 units PRBCs Continue Heparin, coumadin Monitor H&H Plan to resume Aspirin if Hb stable Anemia Likely from Acute blood loss from hematoma, Kidney disease S/P 2 units PRBC Monitor Hb Procrit monitor Acute Hypoxic respiratory failure: multifactorial weaned off oxygen as able Influenza/B/L Pneumonia completed Tamiflu completed 7 days Cefepime + Doxy Recheck CXR for persistent cough in AM Possible Acute on Chronic CHF exacerbation s/p IV Lasix Lasix held for now due to Acute Renal Failure on CKD Plan to resume diuretics on Thursday if renal function better Continue Imdur, Hydralazine, Coreg Abnormal CT chest: (+) pulmonary nodules, possible Aspergillosis vs Mets? Appreciate Pulmonary Input Needs repeat CT in 6-8 weeks and follow up with Pulmonology as outpatient ARPIT: Continue CPAP per Pulmonology PAM on CKD IV s/p IV Lasix and intermittent IV NSS Cr increased to 4s (+) altered mental status likely from Uremia, resolved Received 3 HDs so far: mental status back to baseline Cr: 3.01 today BUN trending down Nephrology on board monitor renal function Trying to avoid dialysis if able Renal function very slowing improving Possible Asthma Exacerbation on Nebs Continue Prednisone taper leukocytosis normalized A Fib RVR rate controlled on Amiodarone PO, Carvedilol amiodarone dose decreased to 200mh BID On Heparin for for anticoagulation continue Coumadin monitor INR:1.2 HHS, DM II A1c 9.5 transitioned to ISS, Lantus HTN continue current medications Nonocclusive CAD Plan to resume ASA as able Chronic thrombocytopenia: Stable monitor DVT Px: on IV heparin, Coumadin Disposition PT/OT may need Rehab/SNF upon discharge PROCEDURES: CT ABD: 1. Moderate left retroperitoneal hematoma emanating from the left iliopsoas muscle. 9 cm intramuscular hematoma in the left psoas. Trace retroperitoneal hemorrhage. 2. A hematocrit level within the hematoma suggests coagulopathy or anticoagulation. 3. Left common femoral venous catheter. This appears to be intravascular but the location of the terminus is difficult to confidently confirm without intravenous contrast. 4. Nodular opacities at the lung bases with peripheral groundglass. This can be seen in the setting of hemorrhagic metastases or angioinvasive aspergillosis among other etiologies. Correlate for immunocompromised status. 5. Anemia. Vital Signs: Date Time Temp Pulse Resp B/P (MAP) Pulse Ox O2 Delivery O2 Flow Rate FiO2 06/07/17 11:27 37.1 99 18 112/74 (87) 93 Room Air 06/07/17 08:00 Room Air 06/07/17 07:44 36.8 76 18 150/89 (109) 99 Nasal Cannula 2.0 06/07/17 04:00 Nasal Cannula 2.0 06/07/17 04:00 37.0 98 20 121/78 (92) 100 Nasal Cannula 2.0 06/07/17 00:00 Room Air 06/06/17 23:34 37.1 90 20 140/85 (103) 97 2.0 06/06/17 20:46 97 157/98 (117) 06/06/17 20:00 Room Air 06/06/17 19:13 36.6 97 20 144/90 (108) 95 Room Air 06/06/17 17:41 93 111/78 (89) 06/06/17 16:00 Room Air 06/06/17 15:26 80 163/84 (110) 06/06/17 15:23 36.7 80 20 164/95 (674) 97 Room Air Lab Results: Results Past 24 Hours Test 06/06/17 16:06 06/06/17 20:51 06/07/17 04:59 06/07/17 07:48 Range/Units Bedside Glucose 127 112 95 70-99 mg/dl White Blood Count 9.61 4.8-10.8 K/uL Red Blood Count 2.80 4.7-6.1 M/uL Hemoglobin 8.0 14.0-18.0 g/dL Hematocrit 24.0 42-52 % Mean Corpuscular Volume 85.7 80-100 fL Mean Corpuscular Hemoglobin 28.6 25-34 pg Mean Corpuscular Hemoglobin Concent 33.3 32-36 g/dl RDW Standard Deviation 46.0 36.4-46.3 fL RDW Coefficient of Variation 14.8 11.5-14.5 % Platelet Count 182 130-400 K/uL Mean Platelet Volume 8.0 7.4-10.4 fL Prothrombin Time 12.5 9.0-12.0 SECONDS Prothromb Time International Ratio 1.2 0.9-1.1 Activated Partial Thromboplast Time 68.9 21.0-31.0 SECONDS Partial Thromboplastin Ratio 2.7 Sodium Level 139 136-145 mmol/L Potassium Level 4.5 3.5-5.1 mmol/L Chloride Level 108 98-107 mmol/L Carbon Dioxide Level 26 21-32 mmol/L Anion Gap 5.0 3-11 mmol/L Blood Urea Nitrogen 54 7-18 mg/dl Creatinine 3.01 0.60-1.40 mg/dl Est Creatinine Clear Calc Drug Dose 30.2 ml/min Estimated GFR () 24.4 Estimated GFR (Non- 21.0 BUN/Creatinine Ratio 17.8 10-20 Random Glucose 79 70-99 mg/dl Calcium Level 8.1 8.5-10.1 mg/dl Test 06/07/17 11:39 Range/Units Bedside Glucose 218 70-99 mg/dl
--- NOTE | 2017-06-07 15:17 | Pharmacy Progress Note ---
Pharmacy Glycemic Short Note 2 Date of Service Jun 07, 2017. OUTPATIENT ANTIDIABETIC REGIMEN: * Novolog with meals - 7 units breakfast, 14 units lunch and dinner * Lantus 45 units HS * A1c = 9.2 % 05/23/17, although this result is likely somewhat unreliable d/t CKD ASSESSMENT: 06/03/17 * Patient has been requiring ~ 55 units of insulin per day for adequate control while on prednisone 20mg daily * 26 units of basal insulin with Lantus (13 units SQ BID) * 30 units of prandial/correctional insulin with NovoLog per CF/CR of 03/23 respectively * BSGs 06/01: 141, 179, 125, 195 * BSGs 06/02: 88, 195, 141, 228 * BSGs 06/03: 82 * Goal BSG range is <150 mg/dl to promote wound healing. * AM fasting BSG is slightly below goal range at 88mg/dl today. Decrease in basal insulin is warranted. * More CHO coverage is needed - BSG increased from in range to above range with meals. BSG corrects well whenever BSG is high pre-meal, therefore, patient receives extra coverage for elevated BSG. Will tighten CR but loosen CF to prevent hypo when additional CHO coverage is given and BSG is above goal range. 06/04/17 * Patient received 59 units of insulin yesterday with BSGs ranging from 119-231 mg/dL * Remains on prednisone 20 mg daily today, but will be decreased to 10 mg tomorrow * Fasting for today = 119 * Will continue same Lantus but decrease slightly for reduced prednisone dose starting tomorrow * Postprandial BSGs okay, except for HS that continues to be elevated * Will tighten CR for dinner only * Will reassess tomorrow if changes need made for lower prednisone dose 06/05/17 * Patient received 65 units of insulin yesterday * Prednisone decreased from 20 mg to 10 mg daily starting today * Lantus was already decreased last evening * I initially loosened the CR this AM for the decrease in prednisone dose but pre-lunch BSG elevated so I will tighten back to previous parameters 06/06/17 * Patient received 60 units of insulin yesterday * Causes of insulin resistance remain the same - still on prednisone 10 mg daily * Fasting BS - will lower basal slightly by ~10% * Postprandial BSGs yesterday: 203, 215, 150 * Tightened CR of 3 with dinner worked great, CR for other meals was tightened back to 4 later in the day so we have not seen full effects of this w/ current prednisone dose 06/07/17 * Remains on prednisone 10 mg daily * Fasting this AM: 79 - basal lowered yesterday but this has fallen further -> will lower PM dose just slightly since pt on qAM prednisone * Postprandial BSGs acceptable yesterday, high after breakfast today but this could be b/c of less Novolog this AM -> no changes until we see a trend PLAN FOR INPATIENT GLYCEMIC CONTROL: * Basal insulin: * DECREASE Lantus to 10 units qAM, 9 units qPM * Bolus insulin: no change from yesterday * NovoLog per scale ACHS or Q6hrs while NPO * Goal Range: Low 110 mg/dL - High 140 mg/dL * Correction Factor: 20 mg/dL/unit * Nutritional / Prandial insulin per carb ratio of 1 unit per 4 grams CHO consumed -> 3 for dinner only Thank you.
[2017-06-07] MEDS: HEPARIN 25,000 UNIT/500ML D5W 500 ML IV PRN (15:28)
[2017-06-07] MEDS: WARFARIN SOD 5 MG TAB PO SCH (16:13)
[2017-06-07 16:37] LABS: HEMATOCRIT 26.2 % (42-52); HEMOGLOBIN 8.7 g/dL (14.0-18.0)
[2017-06-07] MEDS: GABAPENTIN 300 MG CAP PO SCH (20:34)
[2017-06-07] MEDS: ROSUVASTATIN CALCIUM 20 MG TAB PO SCH (20:36)
[2017-06-08] VITALS (7 sets, daily range): BP systolic 115–144; BP diastolic 64–91; PULSE 80–104; TEMP 36.6–37.2; O2SAT 93–98
[2017-06-08 04:43] LABS: HEMATOCRIT 25.1 % (42-52); HEMOGLOBIN 8.4 g/dL (14.0-18.0)
[2017-06-08 05:00] LABS: CALCIUM 8.6 mg/dl (8.5-10.1); CREATININE 2.95 mg/dl (0.60-1.40); POTASSIUM 4.4 mmol/L (3.5-5.1)
[2017-06-08 05:02] LABS: INR 1.4 (0.9-1.1)
[2017-06-08 05:33] LABS: PTT PATIENT 65.1 SECONDS (21.0-31.0)
--- NOTE | 2017-06-08 07:19 | DIAGNOSTIC IMAGING REPORT ---
CHEST ONE VIEW PORTABLE CLINICAL HISTORY: cough COMPARISON STUDY: 05/25/2017 FINDINGS: The heart is mildly enlarged. There is been interval improvement in the previously identified right lung airspace opacities. Left lung remains clear. There is no overt failure. There are no pleural effusions.[ IMPRESSION: Improving right lung airspace opacities Electronically signed by: Indra Aguilar M.D. 06/08/2017 7:17 AM Dictated Date/Time: 06/08/2017 7:16 AM
[2017-06-08] MEDS: POLYETHYLENE (MIRALAX) 17 GM PACK PO SCH (07:47)
[2017-06-08] MEDS: DOCUSATE SODIUM/SENNA 50/8.6MG TAB PO SCH (07:49)
[2017-06-08] MEDS: HydrALAZINE 10 MG TAB PO SCH (07:50)
[2017-06-08] MEDS: AMIODARONE 200 MG TAB PO SCH ×2 (07:50→20:20)
[2017-06-08] MEDS: ISOSORBIDE DINITRATE 20 MG TAB PO SCH ×2 (07:50→12:08)
[2017-06-08] MEDS: GUAIFENESIN 600 MG TABCR PO SCH ×2 (07:51→20:20)
[2017-06-08] MEDS: PANTOprazole SOD 40 MG TAB PO SCH (07:51)
[2017-06-08] MEDS: CARVEDILOL 12.5 MG TAB PO SCH ×2 (07:51→20:20)
[2017-06-08] MEDS: DULOXETINE HCL 60 MG CAP PO SCH (07:51)
[2017-06-08] MEDS: INSULIN GLARGINE SOLOSTAR 100 UNITS/ML 3 ML PEN SC SCH ×2 (07:55→21:17)
[2017-06-08] MEDS: INSULIN ASPART 100 UNITS/ML 3 ML PEN SC SCH ×4 (07:55→20:21)
[2017-06-08] MEDS: HEPARIN 25,000 UNIT/500ML D5W 500 ML IV PRN (08:29)
--- NOTE | 2017-06-08 11:02 | PROGRESS NOTE ---
DATE: 06/08/2017 CARDIOLOGY CONSULTATION FOLLOWUP NOTE The patient seen and examined. Chart, medications, telemetry reviewed. SUBJECTIVE: The patient notes no complaints. Notes no signs or symptoms of increasing fluid retention, weights have been stable. Notes no chest pains or dizziness. Notes no lightheadedness. OBJECTIVE: VITAL SIGNS: Heart rate is 80-90, blood pressure 144/91, O2 saturations 93% on room air. HEENT: Normocephalic, atraumatic. Nares without discharge. Throat was clear. NECK: Supple without thyromegaly or lymphadenopathy. LUNGS: Reveal few scattered wheezes and rhonchi at the bases but improving. CARDIOVASCULAR: Irregularly irregular. There is no S3 gallop. ABDOMEN: Soft. EXTREMITIES: Reveal 1+ lower extremity edema. LABORATORY DATA: INR is 1.4. Sodium is 140, potassium is 4.4, chloride is 107, bicarbonate is 25, BUN is 52, and creatinine is 2.95. Hemoglobin is 8.4. IMPRESSION: 1. A 62-year-old male with complex issues include acute influenza infection with associated bilateral pneumonia and acute respiratory failure. 2. New onset atrial fibrillation, controlled rate with combination of amiodarone and carvedilol, now switching anticoagulation from heparin to Coumadin. 3. History of nonischemic cardiomyopathy, currently compensated chronic heart failure. 4. Acute renal insufficiency, gradually improving. Diuretics remain on hold, enalapril has been discontinued. Will continue afterload reduction with hydralazine and nitrates. Will increase hydralazine dosing.
--- NOTE | 2017-06-08 11:23 | Progress Note ---
Internal Med Progress Note Date of Service: Jun 08, 2017. Provider Documentation: SUBJECTIVE: Seen and examined at bedside renal function slowly improving Denies any bleeding issues Hb stable Denies chest pain, SOB, dizziness, abd pain Hydralazine dose increased Still on Heparin drip OBJECTIVE: Vital Signs-as noted below Physical Exam: General Appearance:Moderately built and nourished, no apparent distress Head: normocephalic, Atraumatic Eyes: normal inspection, EOMI, PERRL Neck: supple, Trachea midline Respiratory/Chest: Normal breath sounds, minimal wheeze Cardiovascular: Irregularly irregular, + systolic murmur Abdomen/GI:Soft, Non tender, Bowel sounds present Extremities/Musculoskelatal:normal inspection, + B/L pretibial edema Neurologic/Psych:AAOX3, grossly no focal neurological deficits Skin: normal color, warm Lab data as noted below. ASSESSMENT & PLAN: Patient is a 62yr male with PMH of CHF with EF 35-40%, CAD, DM, HTN presenting with shortness of breath. Left retroperitoneal/Iliopsoas Hemorrhage S/P Left Fem HD cath placement 05/29/17 and removal on 06/01/17 CT Abd as below Hb:8.7>>9.2>>>8.6>>8.4 S/P 2 units PRBCs Continue Heparin, Coumadin Monitor H&H Will resume Aspirin Anemia Likely from Acute blood loss from hematoma, Kidney disease S/P 2 units PRBC Monitor Hb Procrit monitor Acute Hypoxic respiratory failure: multifactorial weaned off oxygen as able Influenza/B/L Pneumonia completed Tamiflu completed 7 days Cefepime + Doxy Repeat CXR:Improving right lung airspace opacities Possible Acute on Chronic CHF exacerbation s/p IV Lasix Lasix held for now due to Acute Renal Failure on CKD Plan to resume diuretics when renal function better Continue Imdur, Hydralazine, Coreg Abnormal CT chest: (+) pulmonary nodules, possible Aspergillosis vs Mets? Appreciate Pulmonary Input Needs repeat CT in 6-8 weeks and follow up with Pulmonology as outpatient ARPIT: Continue CPAP per Pulmonology PAM on CKD IV s/p IV Lasix and intermittent IV NSS Cr increased to 4s (+) altered mental status likely from Uremia, resolved Received 3 HDs so far: mental status back to baseline Cr: 2.95 today BUN trending down Nephrology on board monitor renal function Trying to avoid dialysis if able Renal function very slowing improving Possible Asthma Exacerbation on Nebs Completed Prednisone taper leukocytosis normalized A Fib RVR rate controlled on Amiodarone PO, Carvedilol amiodarone dose decreased to 200mh BID On Heparin for for anticoagulation continue Coumadin monitor INR:1.4 today HHS, DM II A1c 9.5 transitioned to ISS, Lantus HTN continue current medications Nonocclusive CAD Continue ASA Chronic thrombocytopenia: Stable monitor DVT Px: on IV heparin, Coumadin Disposition PT/OT may need Rehab/SNF upon discharge PROCEDURES: CT ABD: 1. Moderate left retroperitoneal hematoma emanating from the left iliopsoas muscle. 9 cm intramuscular hematoma in the left psoas. Trace retroperitoneal hemorrhage. 2. A hematocrit level within the hematoma suggests coagulopathy or anticoagulation. 3. Left common femoral venous catheter. This appears to be intravascular but the location of the terminus is difficult to confidently confirm without intravenous contrast. 4. Nodular opacities at the lung bases with peripheral groundglass. This can be seen in the setting of hemorrhagic metastases or angioinvasive aspergillosis among other etiologies. Correlate for immunocompromised status. 5. Anemia. Vital Signs: Date Time Temp Pulse Resp B/P (MAP) Pulse Ox O2 Delivery O2 Flow Rate FiO2 06/08/17 07:45 Nasal Cannula 2.0 06/08/17 07:33 36.6 91 18 144/91 (108) 98 06/08/17 04:13 36.8 91 20 136/76 (96) 93 Room Air 06/08/17 04:00 Nasal Cannula 2.0 06/08/17 00:00 Nasal Cannula 2.0 06/07/17 23:07 37.0 89 20 143/80 (101) 93 Nasal Cannula 2.0 06/07/17 20:35 102 140/88 (105) 98 Room Air 06/07/17 20:00 Room Air 06/07/17 19:08 36.9 92 18 150/77 (101) 95 Room Air 06/07/17 17:27 92 128/85 (99) 06/07/17 16:00 Room Air 40 06/07/17 15:02 36.7 97 20 116/73 (87) 97 Room Air 06/07/17 12:00 Room Air 06/07/17 11:27 37.1 99 18 112/74 (87) 93 Room Air Lab Results: Results Past 24 Hours Test 06/07/17 11:39 06/07/17 16:01 06/07/17 16:07 06/07/17 20:11 Range/Units Bedside Glucose 218 248 250 70-99 mg/dl Hemoglobin 8.7 14.0-18.0 g/dL Hematocrit 26.2 42-52 % Test 06/08/17 04:23 06/08/17 07:30 Range/Units Hemoglobin 8.4 14.0-18.0 g/dL Hematocrit 25.1 42-52 % Prothrombin Time 14.4 9.0-12.0 SECONDS Prothromb Time International Ratio 1.4 0.9-1.1 Activated Partial Thromboplast Time 65.1 21.0-31.0 SECONDS Partial Thromboplastin Ratio 2.5 Sodium Level 140 136-145 mmol/L Potassium Level 4.4 3.5-5.1 mmol/L Chloride Level 107 98-107 mmol/L Carbon Dioxide Level 25 21-32 mmol/L Anion Gap 8.0 3-11 mmol/L Blood Urea Nitrogen 52 7-18 mg/dl Creatinine 2.95 0.60-1.40 mg/dl Est Creatinine Clear Calc Drug Dose 30.8 ml/min Estimated GFR () 25.0 Estimated GFR (Non- 21.6 BUN/Creatinine Ratio 17.6 10-20 Random Glucose 60 70-99 mg/dl Calcium Level 8.6 8.5-10.1 mg/dl Bedside Glucose 97 70-99 mg/dl
[2017-06-08] MEDS: WARFARIN SOD 5 MG TAB PO SCH (15:28)
--- NOTE | 2017-06-08 16:48 | Nephrology Progress Note ---
Nephrology Progress Note Date of Service: Jun 08, 2017. Subjective seen on rounds this amp approx 0900; no c/o; on 02nc hs and prn at home. no n/v , edema controlled; denies voiding concerns; remains on heparin gtt Objective Date Time Temp Pulse Resp B/P (MAP) Pulse Ox O2 Delivery O2 Flow Rate FiO2 06/08/17 16:16 36.8 80 17 124/81 (95) 95 Room Air 06/08/17 16:06 Nasal Cannula 2.0 06/08/17 11:50 Nasal Cannula 2.0 06/08/17 11:45 36.8 104 18 120/77 (91) 96 Room Air 06/08/17 07:45 Nasal Cannula 2.0 06/08/17 07:33 36.6 91 18 144/91 (108) 98 06/08/17 04:13 36.8 91 20 136/76 (96) 93 Room Air 06/08/17 04:00 Nasal Cannula 2.0 06/08/17 00:00 Nasal Cannula 2.0 06/07/17 23:07 37.0 89 20 143/80 (101) 93 Nasal Cannula 2.0 06/07/17 20:35 102 140/88 (105) 98 Room Air 06/07/17 20:00 Room Air 06/07/17 19:08 36.9 92 18 150/77 (101) 95 Room Air 06/07/17 17:27 92 128/85 (99) Physical Exam: General-alert interactive, appropriate on 02NC Eyes-no scleral icterus ENT-mmm Neck-supple Lungs-scattered exp wheezes Heart-irregularly irregular; sM Abdomen-bs+ s/nt/nd; no cuadra Extremities-no c/c; trace BL edema Neuro-no mariah tremors Current Inpatient Medications Medications (Trade) Dose Ordered Sig/Larry Route Start Time Stop Time Status Last Admin Dose Admin Acetaminophen (Tylenol Tab) 650 mg Q4H PRN PO 05/23/17 04:30 06/22/17 04:29 05/28/17 18:03 650 MG Nitroglycerin (Nitrostat Tab) 0.4 mg UD PRN SL 05/23/17 04:30 06/22/17 04:29 Tramadol HCl (Ultram Tab) not relieved ... Q6H PRN PO 05/23/17 04:30 06/22/17 04:29 Carvedilol (Coreg Tab) 12.5 mg BID PO 05/23/17 09:00 06/22/17 08:59 06/08/17 07:51 12.5 MG Duloxetine HCl (Cymbalta Cap) 60 mg DAILY PO 05/23/17 09:00 06/22/17 08:59 06/08/17 07:51 60 MG Pantoprazole Sodium (Protonix Tab) 40 mg QAM PO 05/23/17 09:00 06/22/17 08:59 06/08/17 07:51 40 MG Rosuvastatin Calcium (Crestor Tab) 40 mg HS PO 05/23/17 21:00 06/22/17 20:59 06/07/17 20:36 40 MG Prochlorperazine Edisylate 5 mg/ Syringe 5 ml @ 5 mls/min Q6H PRN IV 05/23/17 04:30 06/22/17 04:29 05/25/17 09:28 5 MLS/MIN Guaifenesin (Mucinex Contr Rel Tab) 600 mg BID PO 05/23/17 21:00 06/22/17 20:59 06/08/17 07:51 600 MG Ipratropium [place] (Atrovent 0.02% 0.5MG/2.5ML Neb) 0.5 mg Q4H PRN INH 05/23/17 05:15 06/22/17 05:14 05/25/17 00:20 0.5 MG Levalbuterol (Xopenex 1.25MG/ 0.5ML Neb) 1.25 mg Q4H PRN INH 05/23/17 05:15 06/22/17 05:14 05/25/17 00:20 1.25 MG Furosemide 40 mg/ Syringe 4 ml @ 4 mls/min DAILY IV 05/23/17 09:00 06/22/17 08:59 Future Hold 05/23/17 10:34 4 MLS/MIN Miscellaneous Information (Consult Glycemic Management Pharmacy) 1 ea UD N/A 05/23/17 09:48 06/22/17 09:47 Glucose (Glucose 40% Gel) 15-30 GRAMS 15 GRAMS... UD PRN PO 05/24/17 08:30 06/23/17 08:29 Glucose (Glucose Chew Tab) 4-8 Tablets 4 Tabl... UD PRN PO 05/24/17 08:30 06/23/17 08:29 Dextrose (Dextrose 50% 50ML Syringe) 25-50ML OF 50% DW IV FOR... UD PRN IV 05/24/17 08:30 06/23/17 08:29 05/27/17 23:29 25 ML Glucagon (Glucagon Inj) 1 mg UD PRN SQ 05/24/17 08:30 06/23/17 08:29 Gabapentin (Neurontin Cap) 300 mg HS PO 05/28/17 21:00 06/27/17 20:59 06/07/17 20:34 300 MG Polyethylene (Miralax Powder Packet) 17 gm DAILY PO 05/29/17 09:00 06/28/17 08:59 06/01/17 09:23 17 GM Senna/Docusate Sodium (Senokot S Tab) 1 tab QAM PO 06/02/17 09:00 07/02/17 08:59 06/02/17 07:55 1 TAB Bisacodyl (Dulcolax Supp) 10 mg DAILY PRN [place] 06/01/17 13:15 07/01/17 13:14 Amiodarone HCl (Cordarone Tab) 200 mg BID PO 06/02/17 21:00 07/02/17 20:59 06/08/17 07:50 200 MG Heparin Sodium/ Dextrose 500 ml @ 30 mls/hr [id number] PRN IV 06/03/17 15:15 07/03/17 15:14 06/08/17 08:29 30 MLS/HR Insulin Aspart (novoLOG ASPART) SLIDING SCALE 0630,1100,2100 SC 06/04/17 11:00 07/04/17 10:59 06/08/17 12:10 20 UNITS Insulin Aspart (novoLOG ASPART) SLIDING SCALE DAILY@1630 SC 06/04/17 16:30 07/04/17 16:29 06/07/17 17:27 21 UNITS Warfarin Sodium (Coumadin Tab) 5 mg DAILY@16 PO 06/05/17 16:00 07/05/17 15:59 06/08/17 15:28 5 MG Isosorbide Dinitrate (Isordil Tab) 20 mg BID@0700,1200 PO 06/06/17 15:00 07/06/17 14:59 06/08/17 12:08 20 MG Insulin Glargine (Lantus Solostar Pen) 10 units QAM SC 06/08/17 09:00 07/08/17 08:59 06/08/17 07:55 10 UNITS Insulin Glargine (Lantus Solostar Pen) 9 units PM SC 06/07/17 21:00 07/07/17 20:59 06/07/17 20:44 9 UNITS Hydralazine HCl (Apresoline Tab) 12.5 mg TID PO 06/08/17 14:00 07/06/17 16:59 06/08/17 13:34 12.5 MG Aspirin (Ecotrin Tab) 81 mg QAM PO 06/09/17 09:00 07/09/17 08:59 Last 24 Hours Test 06/07/17 20:11 06/08/17 04:23 06/08/17 07:30 06/08/17 11:14 Bedside Glucose 250 mg/dl 97 mg/dl 178 mg/dl Hemoglobin 8.4 g/dL Hematocrit 25.1 % Prothrombin Time 14.4 SECONDS Prothromb Time International Ratio 1.4 Activated Partial Thromboplast Time 65.1 SECONDS Partial Thromboplastin Ratio 2.5 Sodium Level 140 mmol/L Potassium Level 4.4 mmol/L Chloride Level 107 mmol/L Carbon Dioxide Level 25 mmol/L Anion Gap 8.0 mmol/L Blood Urea Nitrogen 52 mg/dl Creatinine 2.95 mg/dl Est Creatinine Clear Calc Drug Dose 30.8 ml/min Estimated GFR () 25.0 Estimated GFR (Non- 21.6 BUN/Creatinine Ratio 17.6 Random Glucose 60 mg/dl Calcium Level 8.6 mg/dl Assessment & Plan 62 yo male with flu/afib rate controlled with atn who started acute dialysis 05/28 x 3 sessions to help improve tremors and confusion. urinating well and tolerating iv fluids well. tremors are better as is confusion. [id number]-oliguric on CKD 4-slow improvement of creat though plateau'd last 48 hrs at about 3; no uremic sx; cont daily bmp acute on chronic anemia -has mild iron deficiency; will give venofer tomorrow am (prefer not to give new med after hours) and epo
[2017-06-08] MEDS: GABAPENTIN 300 MG CAP PO SCH (20:17)
[2017-06-08] MEDS: ROSUVASTATIN CALCIUM 20 MG TAB PO SCH (20:19)
[2017-06-09] VITALS (9 sets, daily range): BP systolic 86–136; BP diastolic 62–81; PULSE 75–101; TEMP 36.7–37; O2SAT 93–99
[2017-06-09] MEDS: HEPARIN 25,000 UNIT/500ML D5W 500 ML IV PRN ×4 (01:28→22:58)
[2017-06-09 05:10] LABS: HEMATOCRIT 25.4 % (42-52); HEMOGLOBIN 8.2 g/dL (14.0-18.0); MEAN CELL VOLUME 89.4 fL (80-100); MEAN CORPUSCULAR HEMOGLOBIN 28.9 pg (25-34); MEAN PLATELET VOLUME 8.7 fL (7.4-10.4); PLATELET COUNT 189 K/uL (130-400); RED CELL DISTRIBUTION WIDTH CV 15.5 % (11.5-14.5); RED CELL DISTRIBUTION WIDTH SD 47.7 fL (36.4-46.3); WHITE BLOOD COUNT 9.55 K/uL (4.8-10.8)
[2017-06-09 05:17] LABS: INR 1.8 (0.9-1.1)
[2017-06-09 05:22] LABS: PTT PATIENT 77.4 SECONDS (21.0-31.0)
[2017-06-09 05:27] LABS: CALCIUM 8.4 mg/dl (8.5-10.1); CREATININE 2.92 mg/dl (0.60-1.40); POTASSIUM 4.6 mmol/L (3.5-5.1)
[2017-06-09 05:39] LABS: MEAN CORPUSCULAR HGB CONC 32.3 g/dl (32-36)
[2017-06-09] MEDS: POLYETHYLENE (MIRALAX) 17 GM PACK PO SCH (08:10)
[2017-06-09] MEDS: ISOSORBIDE DINITRATE 20 MG TAB PO SCH ×2 (08:10→12:07)
[2017-06-09] MEDS: DOCUSATE SODIUM/SENNA 50/8.6MG TAB PO SCH (08:10)
[2017-06-09] MEDS: DULOXETINE HCL 60 MG CAP PO SCH (08:11)
[2017-06-09] MEDS: PANTOprazole SOD 40 MG TAB PO SCH (08:11)
[2017-06-09] MEDS: GUAIFENESIN 600 MG TABCR PO SCH ×2 (08:11→20:40)
[2017-06-09] MEDS: CARVEDILOL 12.5 MG TAB PO SCH ×2 (08:11→20:40)
[2017-06-09] MEDS: AMIODARONE 200 MG TAB PO SCH ×2 (08:11→20:40)
[2017-06-09] MEDS: ASPIRIN 81 MG ECTAB PO SCH (08:11)
[2017-06-09] MEDS ORDERED: EPOETIN ALFA 4000 UNITS/ML VIAL SQ SCH (08:15)
[2017-06-09] MEDS: INSULIN ASPART 100 UNITS/ML 3 ML PEN SC SCH ×4 (08:16→20:44)
[2017-06-09] MEDS: INSULIN GLARGINE SOLOSTAR 100 UNITS/ML 3 ML PEN SC SCH (08:18)
[2017-06-09] MEDS ORDERED: IRON SUCROSE INJ 200 MG in SODIUM CHLORIDE 0.9% 100ML 100 ML IV ONE (09:00)
[2017-06-09] MEDS ORDERED: EPOETIN ALFA INJ 6,000 UNITS in SYRINGE 0 ML SQ ONE (09:00)
[2017-06-09 12:43] LABS: PTT PATIENT 87.2 SECONDS (21.0-31.0)
--- NOTE | 2017-06-09 12:51 | Pharmacy Progress Note ---
Pharmacy Glycemic Short Note 2 Date of Service Jun 09, 2017. OUTPATIENT ANTIDIABETIC REGIMEN: * Novolog with meals - 7 units breakfast, 14 units lunch and dinner * Lantus 45 units HS * A1c = 9.2 % 05/23/17, although this result is likely somewhat unreliable d/t CKD ASSESSMENT: * Patient received 69 units of insulin yesterday with BSGs ranging from 60-178 mg/dL. * Prednisone has been discontinued. * Expect that insulin requirements will decrease. Will switch to once-daily Lantus and loosen Novolog parameters. PLAN FOR INPATIENT GLYCEMIC CONTROL: * Basal insulin: * DECREASE Lantus to 10 units SQ qAM * Bolus insulin: * NovoLog per scale ACHS or Q6hrs while NPO * Goal Range: Low 110 mg/dL - High 140 mg/dL * Correction Factor: 20 mg/dL/unit * Nutritional / Prandial insulin per carb ratio of 1 unit per 8 grams CHO consumed DISCHARGE PLANNING: * Patient's A1c (9.2%) reflects sub-optimal glycemic control, however, it is not entirely reliable in hte setting of CKD. * Recommend increasing SMBG at home and f/u with PCP to adjust regimen to optimize glycemic control. Thank you.
--- NOTE | 2017-06-09 13:06 | Nephrology Progress Note ---
Nephrology Progress Note Date of Service: Jun 09, 2017. Subjective no c/o; on 02nc hs and prn at home though today sleeping on RA; had active/busy night. no n/v, edema controlled; remains on heparin gtt Objective Date Time Temp Pulse Resp B/P (MAP) Pulse Ox O2 Delivery O2 Flow Rate FiO2 06/09/17 12:06 37.0 75 16 86/62 (70) 96 Room Air 106/72 (83) 06/09/17 11:45 Room Air 06/09/17 07:45 Room Air 06/09/17 07:23 36.8 98 18 131/80 (97) 93 06/09/17 04:00 Room Air 06/09/17 03:53 36.9 79 18 136/81 (99) 99 Nasal Cannula 2.0 06/09/17 00:00 Room Air 06/08/17 23:52 37.2 90 16 115/64 (81) 98 Nasal Cannula 2.0 06/08/17 20:15 99 129/88 (102) 06/08/17 20:00 Room Air 06/08/17 19:17 36.7 95 18 115/70 (85) 95 Room Air 06/08/17 16:16 36.8 80 17 124/81 (95) 95 Room Air 06/08/17 16:06 Nasal Cannula 2.0 Physical Exam: General-alert interactive, appropriate on ra Eyes-no scleral icterus ENT-mmm Neck-supple Lungs-today no wheezes Heart-irregularly irregular; SM Abdomen-bs+ s/nt/nd; no cuadra Extremities-no c/c; trace BL edema Neuro-no mariah tremors Current Inpatient Medications Medications (Trade) Dose Ordered Sig/Larry Route Start Time Stop Time Status Last Admin Dose Admin Acetaminophen (Tylenol Tab) 650 mg Q4H PRN PO 05/23/17 04:30 06/22/17 04:29 05/28/17 18:03 650 MG Nitroglycerin (Nitrostat Tab) 0.4 mg UD PRN SL 05/23/17 04:30 06/22/17 04:29 Tramadol HCl (Ultram Tab) not relieved ... Q6H PRN PO 05/23/17 04:30 06/22/17 04:29 Carvedilol (Coreg Tab) 12.5 mg BID PO 05/23/17 09:00 06/22/17 08:59 06/09/17 08:11 12.5 MG Duloxetine HCl (Cymbalta Cap) 60 mg DAILY PO 05/23/17 09:00 06/22/17 08:59 06/09/17 08:11 60 MG Pantoprazole Sodium (Protonix Tab) 40 mg QAM PO 05/23/17 09:00 06/22/17 08:59 06/09/17 08:11 40 MG Rosuvastatin Calcium (Crestor Tab) 40 mg HS PO 05/23/17 21:00 06/22/17 20:59 06/08/17 20:19 40 MG Prochlorperazine Edisylate 5 mg/ Syringe 5 ml @ 5 mls/min Q6H PRN IV 05/23/17 04:30 06/22/17 04:29 05/25/17 09:28 5 MLS/MIN Guaifenesin (Mucinex Contr Rel Tab) 600 mg BID PO 05/23/17 21:00 06/22/17 20:59 06/09/17 08:11 600 MG Ipratropium [place] (Atrovent 0.02% 0.5MG/2.5ML Neb) 0.5 mg Q4H PRN INH 05/23/17 05:15 06/22/17 05:14 05/25/17 00:20 0.5 MG Levalbuterol (Xopenex 1.25MG/ 0.5ML Neb) 1.25 mg Q4H PRN INH 05/23/17 05:15 06/22/17 05:14 05/25/17 00:20 1.25 MG Furosemide 40 mg/ Syringe 4 ml @ 4 mls/min DAILY IV 05/23/17 09:00 06/22/17 08:59 Future Hold 05/23/17 10:34 4 MLS/MIN Miscellaneous Information (Consult Glycemic Management Pharmacy) 1 ea UD N/A 05/23/17 09:48 06/22/17 09:47 Glucose (Glucose 40% Gel) 15-30 GRAMS 15 GRAMS... UD PRN PO 05/24/17 08:30 06/23/17 08:29 Glucose (Glucose Chew Tab) 4-8 Tablets 4 Tabl... UD PRN PO 05/24/17 08:30 06/23/17 08:29 Dextrose (Dextrose 50% 50ML Syringe) 25-50ML OF 50% DW IV FOR... UD PRN IV 05/24/17 08:30 06/23/17 08:29 05/27/17 23:29 25 ML Glucagon (Glucagon Inj) 1 mg UD PRN SQ 05/24/17 08:30 06/23/17 08:29 Gabapentin (Neurontin Cap) 300 mg HS PO 05/28/17 21:00 06/27/17 20:59 06/08/17 20:17 300 MG Polyethylene (Miralax Powder Packet) 17 gm DAILY PO 05/29/17 09:00 06/28/17 08:59 06/01/17 09:23 17 GM Senna/Docusate Sodium (Senokot S Tab) 1 tab QAM PO 06/02/17 09:00 07/02/17 08:59 06/02/17 07:55 1 TAB Bisacodyl (Dulcolax Supp) 10 mg DAILY PRN ME 06/01/17 13:15 07/01/17 13:14 Amiodarone HCl (Cordarone Tab) 200 mg BID PO 06/02/17 21:00 07/02/17 20:59 06/09/17 08:11 200 MG Heparin Sodium/ Dextrose 500 ml @ 27 mls/hr [id number] PRN IV 06/03/17 15:15 07/03/17 15:14 06/09/17 06:02 27 MLS/HR Warfarin Sodium (Coumadin Tab) 5 mg DAILY@16 PO 06/05/17 16:00 07/05/17 15:59 06/08/17 15:28 5 MG Isosorbide Dinitrate (Isordil Tab) 20 mg BID@0700,1200 PO 06/06/17 15:00 07/06/17 14:59 06/09/17 12:07 20 MG Insulin Glargine (Lantus Solostar Pen) 10 units QAM SC 06/08/17 09:00 07/08/17 08:59 06/09/17 08:18 10 UNITS Hydralazine HCl (Apresoline Tab) 12.5 mg TID PO 06/08/17 14:00 07/06/17 16:59 06/09/17 08:10 12.5 MG Aspirin (Ecotrin Tab) 81 mg QAM PO 06/09/17 09:00 07/09/17 08:59 06/09/17 08:11 81 MG Insulin Aspart (novoLOG ASPART) SLIDING SCALE ACHS SC 06/09/17 11:00 07/09/17 10:59 06/09/17 12:08 7 UNITS Last 24 Hours Test 06/08/17 16:41 06/08/17 20:17 06/09/17 04:35 06/09/17 07:25 Bedside Glucose 146 mg/dl 101 mg/dl 109 mg/dl White Blood Count 9.55 K/uL Red Blood Count 2.84 M/uL Hemoglobin 8.2 g/dL Hematocrit 25.4 % Mean Corpuscular Volume 89.4 fL Mean Corpuscular Hemoglobin 28.9 pg Mean Corpuscular Hemoglobin Concent 32.3 g/dl RDW Standard Deviation 47.7 fL RDW Coefficient of Variation 15.5 % Platelet Count 189 K/uL Mean Platelet Volume 8.7 fL Prothrombin Time 19.0 SECONDS Prothromb Time International Ratio 1.8 Activated Partial Thromboplast Time 77.4 SECONDS Partial Thromboplastin Ratio 3.0 Sodium Level 140 mmol/L Potassium Level 4.6 mmol/L Chloride Level 107 mmol/L Carbon Dioxide Level 26 mmol/L Anion Gap 7.0 mmol/L Blood Urea Nitrogen 48 mg/dl Creatinine 2.92 mg/dl Est Creatinine Clear Calc Drug Dose 31.1 ml/min Estimated GFR () 25.3 Estimated GFR (Non- 21.8 BUN/Creatinine Ratio 16.5 Random Glucose 105 mg/dl Calcium Level 8.4 mg/dl Test 06/09/17 11:41 06/09/17 11:47 Bedside Glucose 134 mg/dl Activated Partial Thromboplast Time 87.2 SECONDS Partial Thromboplastin Ratio 3.4 Assessment & Plan 62 yo male with flu/afib rate controlled with atn who started acute dialysis 05/28 x 3 sessions to help improve tremors and confusion. urinating well and tolerating iv fluids well. tremors are better as is confusion. [id number]-oliguric on CKD 4-w/ very slow improvement of creat currently at about 3; no uremic sx; cont daily bmp acute on chronic anemia -has mild iron deficiency; will give venofer today am and then epo -cbc q 48 hrs
[2017-06-09] MEDS: WARFARIN SOD 5 MG TAB PO SCH (15:33)
--- NOTE | 2017-06-09 18:30 | Progress Note ---
Internal Med Progress Note Date of Service: Jun 09, 2017. Provider Documentation: SUBJECTIVE: Still on Heparin drip Denies chest pain, SOB, OBJECTIVE: Physical Exam: General Appearance: no distress Head: normocephalic, Atraumatic Eyes: normal inspection, EOMI Neck: supple, Trachea midline Respiratory/Chest: Normal breath sounds, minimal wheeze Cardiovascular: Irregularly irregular, + systolic murmur Abdomen/GI:Soft, Non tender, Bowel sounds present Extremities/Musculoskelatal:normal inspection, + B/L pretibial edema Neurologic/Psych:AAOX3, grossly no focal neurological deficits ASSESSMENT & PLAN: s/p Left retroperitoneal/Iliopsoas Hemorrhage on this admission had Left Fem HD cath placement 05/29/17 and removal on 06/01/17 S/P 2 units PRBCs on this admission Continue Heparin, Coumadin resume Aspirin Anemia Likely from Acute blood loss from hematoma and Kidney disease, s/p 2 units PRBC Nephrology service: "has mild iron deficiency, will give venofer today am and then epo" Acute Hypoxic respiratory failure: multifactorial Asthma Exacerbation on Nebs, Completed Prednisone taper Influenza/B/L Pneumonia: completed Tamiflu, completed 7 days Cefepime + Doxy, CXR on 06/08/17: Improving right lung airspace opacities ARPIT: Continue CPAP per Pulmonology Abnormal CT chest: (+) pulmonary nodules, Needs repeat CT in 6-8 weeks and follow up with Pulmonology as outpatient History of nonischemic cardiomyopathy, currently compensated chronic heart failure. Lasix and enalapril held for now due to Acute Renal Failure on CKD Continue Imdur, Hydralazine, carvedilol, aspirin New onset atrial fibrillation, controlled rate with combination of amiodarone and carvedilol, now on IV heparin with oral coumadin INR 1.8 on 06/09/17, continue IV heparin and oral coumadin HTN continue current medications PAM on CKD IV Nephrology service following HHS, DM II A1c 9.5 transitioned to ISS, Lantus Chronic thrombocytopenia: Stable monitor DVT Px: on IV heparin, Coumadin Vital Signs: Date Time Temp Pulse Resp B/P (MAP) Pulse Ox O2 Delivery O2 Flow Rate FiO2 06/09/17 16:21 36.7 91 16 126/77 (93) 96 Room Air 06/09/17 16:13 96 Room Air 06/09/17 13:29 101 107/62 (77) 06/09/17 12:06 37.0 75 16 86/62 (70) 96 Room Air 106/72 (83) 06/09/17 12:01 37.0 75 16 96 06/09/17 11:45 Room Air 06/09/17 07:45 Room Air 06/09/17 07:23 36.8 98 18 131/80 (97) 93 06/09/17 04:00 Room Air 06/09/17 03:53 36.9 79 18 136/81 (99) 99 Nasal Cannula 2.0 06/09/17 00:00 Room Air 06/08/17 23:52 37.2 90 16 115/64 (81) 98 Nasal Cannula 2.0 06/08/17 20:15 99 129/88 (102) 06/08/17 20:00 Room Air 06/08/17 19:17 36.7 95 18 115/70 (85) 95 Room Air Lab Results: Results Past 24 Hours Test 06/08/17 20:17 06/09/17 04:35 06/09/17 07:25 06/09/17 11:41 Range/Units Bedside Glucose 101 109 134 70-99 mg/dl White Blood Count 9.55 4.8-10.8 K/uL Red Blood Count 2.84 4.7-6.1 M/uL Hemoglobin 8.2 14.0-18.0 g/dL Hematocrit 25.4 42-52 % Mean Corpuscular Volume 89.4 80-100 fL Mean Corpuscular Hemoglobin 28.9 25-34 pg Mean Corpuscular Hemoglobin Concent 32.3 32-36 g/dl RDW Standard Deviation 47.7 36.4-46.3 fL RDW Coefficient of Variation 15.5 11.5-14.5 % Platelet Count 189 130-400 K/uL Mean Platelet Volume 8.7 7.4-10.4 fL Prothrombin Time 19.0 9.0-12.0 SECONDS Prothromb Time International Ratio 1.8 0.9-1.1 Activated Partial Thromboplast Time 77.4 21.0-31.0 SECONDS Partial Thromboplastin Ratio 3.0 Sodium Level 140 136-145 mmol/L Potassium Level 4.6 3.5-5.1 mmol/L Chloride Level 107 98-107 mmol/L Carbon Dioxide Level 26 21-32 mmol/L Anion Gap 7.0 3-11 mmol/L Blood Urea Nitrogen 48 7-18 mg/dl Creatinine 2.92 0.60-1.40 mg/dl Est Creatinine Clear Calc Drug Dose 31.1 ml/min Estimated GFR () 25.3 Estimated GFR (Non- 21.8 BUN/Creatinine Ratio 16.5 10-20 Random Glucose 105 70-99 mg/dl Calcium Level 8.4 8.5-10.1 mg/dl Test 06/09/17 11:47 06/09/17 16:16 Range/Units Activated Partial Thromboplast Time 87.2 21.0-31.0 SECONDS Partial Thromboplastin Ratio 3.4 Bedside Glucose 107 70-99 mg/dl
[2017-06-09 20:04] LABS: PTT PATIENT 64.6 SECONDS (21.0-31.0)
[2017-06-09] MEDS: GABAPENTIN 300 MG CAP PO SCH (20:40)
[2017-06-09] MEDS: ROSUVASTATIN CALCIUM 20 MG TAB PO SCH (20:40)
[2017-06-10] VITALS: BP 100/55; PULSE 68; TEMP 36.5; O2SAT 95
[2017-06-10 04:00] VITALS: BP 152/86; PULSE 86; TEMP 36.4; O2SAT 96
[2017-06-10 05:07] LABS: CALCIUM 8.5 mg/dl (8.5-10.1); CREATININE 2.86 mg/dl (0.60-1.40)
[2017-06-10 05:09] LABS: INR 2.3 (0.9-1.1)
[2017-06-10 05:19] LABS: PTT PATIENT 64.1 SECONDS (21.0-31.0)
[2017-06-10] MEDS: HEPARIN 25,000 UNIT/500ML D5W 500 ML IV PRN (06:03)
[2017-06-10 07:51] VITALS: BP 121/83; PULSE 102; TEMP 37.4; O2SAT 93
[2017-06-10] MEDS: POLYETHYLENE (MIRALAX) 17 GM PACK PO SCH (08:11)
[2017-06-10] MEDS: DOCUSATE SODIUM/SENNA 50/8.6MG TAB PO SCH (08:12)
[2017-06-10] MEDS: ISOSORBIDE DINITRATE 20 MG TAB PO SCH ×2 (08:13→12:07)
[2017-06-10] MEDS: ASPIRIN 81 MG ECTAB PO SCH (08:14)
[2017-06-10] MEDS: DULOXETINE HCL 60 MG CAP PO SCH (08:14)
[2017-06-10] MEDS: CARVEDILOL 12.5 MG TAB PO SCH (08:14)
[2017-06-10] MEDS: GUAIFENESIN 600 MG TABCR PO SCH (08:14)
[2017-06-10] MEDS: PANTOprazole SOD 40 MG TAB PO SCH (08:14)
[2017-06-10] MEDS: AMIODARONE 200 MG TAB PO SCH (08:14)
[2017-06-10] MEDS: INSULIN ASPART 100 UNITS/ML 3 ML PEN SC SCH (08:17)
[2017-06-10] MEDS: INSULIN GLARGINE SOLOSTAR 100 UNITS/ML 3 ML PEN SC SCH (08:22)
[2017-06-10] MEDS ORDERED: INSULIN ASPART 100 UNITS/ML 3 ML PEN SC SCH ×2 (11:00→16:30)
[2017-06-10 11:37] VITALS: BP 130/72; PULSE 64; TEMP 37; O2SAT 92
--- NOTE | 2017-06-10 12:31 | Nephrology Progress Note ---
Nephrology Progress Note Date of Service: Jun 10, 2017. Subjective no c/o; no n/v, edema controlled; for d/c home today Objective Date Time Temp Pulse Resp B/P (MAP) Pulse Ox O2 Delivery O2 Flow Rate FiO2 06/10/17 11:50 Room Air 06/10/17 11:37 37.0 64 18 130/72 (91) 92 Room Air 06/10/17 07:51 37.4 102 20 121/83 (96) 93 Room Air 06/10/17 07:45 Room Air 06/10/17 04:00 36.4 86 20 152/86 (108) 96 Room Air 06/10/17 04:00 Room Air 06/10/17 00:00 36.5 68 18 100/55 (70) 95 Room Air 06/10/17 00:00 Room Air 06/09/17 20:20 36.7 82 16 115/75 (88) 96 Room Air 06/09/17 20:06 96 Room Air 06/09/17 16:21 36.7 91 16 126/77 (93) 96 Room Air 06/09/17 16:13 96 Room Air 06/09/17 13:29 101 107/62 (77) Physical Exam: General-alert interactive, appropriate on ra, up in chair Eyes-no scleral icterus ENT-mmm Neck-supple Lungs-today no wheezes Heart-irregularly irregular; SM Abdomen-bs+ s/nt/nd; no cuadra Extremities-no c/c; 1+ BL edema Neuro-no mariah tremors Current Inpatient Medications Medications (Trade) Dose Ordered Sig/Larry Route Start Time Stop Time Status Last Admin Dose Admin Acetaminophen (Tylenol Tab) 650 mg Q4H PRN PO 05/23/17 04:30 06/22/17 04:29 05/28/17 18:03 650 MG Nitroglycerin (Nitrostat Tab) 0.4 mg UD PRN SL 05/23/17 04:30 06/22/17 04:29 Tramadol HCl (Ultram Tab) not relieved ... Q6H PRN PO 05/23/17 04:30 06/22/17 04:29 Carvedilol (Coreg Tab) 12.5 mg BID PO 05/23/17 09:00 06/22/17 08:59 06/10/17 08:14 12.5 MG Duloxetine HCl (Cymbalta Cap) 60 mg DAILY PO 05/23/17 09:00 06/22/17 08:59 06/10/17 08:14 60 MG Pantoprazole Sodium (Protonix Tab) 40 mg QAM PO 05/23/17 09:00 06/22/17 08:59 06/10/17 08:14 40 MG Rosuvastatin Calcium (Crestor Tab) 40 mg HS PO 05/23/17 21:00 06/22/17 20:59 06/09/17 20:40 40 MG Prochlorperazine Edisylate 5 mg/ Syringe 5 ml @ 5 mls/min Q6H PRN IV 05/23/17 04:30 06/22/17 04:29 05/25/17 09:28 5 MLS/MIN Guaifenesin (Mucinex Contr Rel Tab) 600 mg BID PO 05/23/17 21:00 06/22/17 20:59 06/10/17 08:14 600 MG Ipratropium [place] (Atrovent 0.02% 0.5MG/2.5ML Neb) 0.5 mg Q4H PRN INH 05/23/17 05:15 06/22/17 05:14 05/25/17 00:20 0.5 MG Levalbuterol (Xopenex 1.25MG/ 0.5ML Neb) 1.25 mg Q4H PRN INH 05/23/17 05:15 06/22/17 05:14 05/25/17 00:20 1.25 MG Furosemide 40 mg/ Syringe 4 ml @ 4 mls/min DAILY IV 05/23/17 09:00 06/22/17 08:59 Future Hold 05/23/17 10:34 4 MLS/MIN Miscellaneous Information (Consult Glycemic Management Pharmacy) 1 ea UD N/A 05/23/17 09:48 06/22/17 09:47 Glucose (Glucose 40% Gel) 15-30 GRAMS 15 GRAMS... UD PRN PO 05/24/17 08:30 06/23/17 08:29 Glucose (Glucose Chew Tab) 4-8 Tablets 4 Tabl... UD PRN PO 05/24/17 08:30 06/23/17 08:29 Dextrose (Dextrose 50% 50ML Syringe) 25-50ML OF 50% DW IV FOR... UD PRN IV 05/24/17 08:30 06/23/17 08:29 05/27/17 23:29 25 ML Glucagon (Glucagon Inj) 1 mg UD PRN SQ 05/24/17 08:30 06/23/17 08:29 Gabapentin (Neurontin Cap) 300 mg HS PO 05/28/17 21:00 06/27/17 20:59 06/09/17 20:40 300 MG Polyethylene (Miralax Powder Packet) 17 gm DAILY PO 05/29/17 09:00 06/28/17 08:59 06/01/17 09:23 17 GM Senna/Docusate Sodium (Senokot S Tab) 1 tab QAM PO 06/02/17 09:00 07/02/17 08:59 06/02/17 07:55 1 TAB Bisacodyl (Dulcolax Supp) 10 mg DAILY PRN [place] 06/01/17 13:15 07/01/17 13:14 Amiodarone HCl (Cordarone Tab) 200 mg BID PO 06/02/17 21:00 07/02/17 20:59 06/10/17 08:14 200 MG Warfarin Sodium (Coumadin Tab) 5 mg DAILY@16 PO 06/05/17 16:00 07/05/17 15:59 06/09/17 15:33 5 MG Isosorbide Dinitrate (Isordil Tab) 20 mg BID@0700,1200 PO 06/06/17 15:00 07/06/17 14:59 06/10/17 12:07 20 MG Insulin Glargine (Lantus Solostar Pen) 10 units QAM SC 06/08/17 09:00 07/08/17 08:59 06/10/17 08:22 10 UNITS Hydralazine HCl (Apresoline Tab) 12.5 mg TID PO 06/08/17 14:00 07/06/17 16:59 06/10/17 08:14 12.5 MG Aspirin (Ecotrin Tab) 81 mg QAM PO 06/09/17 09:00 07/09/17 08:59 06/10/17 08:14 81 MG Insulin Aspart (novoLOG ASPART) SLIDING SCALE 0630,1100,2100 SC 06/10/17 11:00 07/10/17 10:59 06/10/17 12:09 7 UNITS Insulin Aspart (novoLOG ASPART) SLIDING SCALE DAILY@1630 SC 06/10/17 16:30 07/10/17 16:29 Last 24 Hours Test 06/09/17 16:16 06/09/17 19:26 06/09/17 20:37 06/10/17 04:38 Bedside Glucose 107 mg/dl 225 mg/dl Activated Partial Thromboplast Time 64.6 SECONDS 64.1 SECONDS Partial Thromboplastin Ratio 2.5 2.5 Prothrombin Time 24.0 SECONDS Prothromb Time International Ratio 2.3 Sodium Level 139 mmol/L Potassium Level 5.0 mmol/L Chloride Level 107 mmol/L Carbon Dioxide Level 28 mmol/L Anion Gap 4.0 mmol/L Blood Urea Nitrogen 46 mg/dl Creatinine 2.86 mg/dl Est Creatinine Clear Calc Drug Dose 31.7 ml/min Estimated GFR () 25.9 Estimated GFR (Non- 22.4 BUN/Creatinine Ratio 16.0 Random Glucose 103 mg/dl Calcium Level 8.5 mg/dl Test 06/10/17 07:20 Bedside Glucose 111 mg/dl Assessment & Plan 62 yo male with flu/afib rate controlled with atn who started acute dialysis 05/28 x 3 sessions to help improve tremors and confusion. urinating well. tremors are better as is confusion. now w/ therapeutic INR and for outpt cardioversion [id number]-Jge-oliguric on CKD 4-w/ very slow improvement of creat currently at about 3; no uremic sx -resume prior outpt lasix dose at d/c -hold prior outpt enalapril at d/c -bmp and cbc when he sees PCP in f/u -pt to see me in [facility] clinic in about 4-6 wks after hosp d/c acute on chronic anemia -has mild iron deficiency; had venofer and epo in hospital; can decide at [facility] clinic f/u whether to continue this Appreciate c/s. will follow with you.
[2017-06-10] MEDS ORDERED: CMD5 PO (14:23)
[2017-06-10] MEDS ORDERED: INSDGIPEN SC (14:23)
[2017-06-10] MEDS ORDERED: APR25 PO (14:23)
[2017-06-10] MEDS ORDERED: CRD200 PO (14:25)
--- NOTE | 2017-06-10 14:39 | Progress Note ---
Internal Med Progress Note Date of Service: Jun 10, 2017. Provider Documentation: SUBJECTIVE: INR therapeutic today. Patient can be discharged home OBJECTIVE: Physical Exam: General Appearance: no distress Head: normocephalic, Atraumatic Eyes: normal inspection, EOMI Neck: supple, Trachea midline Respiratory/Chest: Normal breath sounds, minimal wheeze Cardiovascular: Irregularly irregular, + systolic murmur Abdomen/GI:Soft, Non tender, Bowel sounds present Right flank bruises Extremities/Musculoskelatal:normal inspection, bilateral lower extremity edema Neurologic/Psych:AAOX3, grossly no focal neurological deficits ASSESSMENT & PLAN: s/p Left retroperitoneal/Iliopsoas Hemorrhage on this admission had Left Fem HD cath placement 05/29/17 and removal on 06/01/17 S/P 2 units PRBCs on this admission Anemia Likely from Acute blood loss from hematoma and Kidney disease, s/p 2 units PRBC on this hospital stay Nephrology service: has followed the patient for Acute Renal Failure on CKD and mild iron deficiency and has given patient venofer today am and then epo Acute Hypoxic respiratory failure: multifactorial Asthma Exacerbation on Nebs, Completed Prednisone taper Influenza/B/L Pneumonia: completed Tamiflu, completed 7 days Cefepime + Doxy, CXR on 06/08/17: Improving right lung airspace opacities ARPIT: Continue CPAP per Pulmonology Abnormal CT chest: (+) pulmonary nodules, Needs repeat CT in 6-8 weeks and follow up with Pulmonology as outpatient History of nonischemic cardiomyopathy, currently compensated chronic heart failure. Lasix and enalapril held for now due to Acute Renal Failure on CKD Continue Imdur, Hydralazine, carvedilol, aspirin New onset atrial fibrillation, controlled rate with combination of amiodarone and carvedilol Continue Coumadin HTN - on antihypertensive medications CKD IV with resolving acute kindey injury HHS, DM II Continue Insulin Chronic thrombocytopenia: Stable ---- Discharge Instructions/Follow ups Patient is to follow up with Dr. Maxin on 06/07/17 at 8:45 AM at [address] [place] [address] [place] [address] for post hospital stay follow up (Dr. Bosch advises that PCP to check BMP and CBC on PCP follow up) Patient is to follow up with Dr. Bosch on 07/16/17 at 11:20 AM [facility] [address] [place] [address] Patient also is to see [facility] [address] [facility], [place] [address] in 3 weeks (appointment not scheduled yet) For [facility] appointments please call [phone] [facility] appointment line also notified that patient will need anticoagulation clinic because he is now to be on warfarin Patient may need primary care doctor to refer to [facility] clinic or alternative pulmonary clinic for follow up of pulmonary nodules based on the following CT report on 06/01/17: "Lung bases: Patchy solid and peripherally groundglass opacities at the lung bases new from prior. More extensive dependent consolidation likely atelectasis. Small left pleural effusion. Mild multichamber enlargement of the heart. Intraventricular blood pool is less dense and adjacent myocardium suggesting anemia. Aortic valve and coronary artery calcification. Liver: Normal morphology. Density consistent with hepatic steatosis. Biliary: No gross biliary ductal dilatation allowing for noncontrast technique. Hyperdensity in the gallbladder possibly vicarious excretion of prior contrast or gallbladder sludge. Mild gallbladder wall thickening or para cholecystic fluid. No inflammatory change. Gallbladder is physiologically distended. Pancreas: Moderate parenchymal atrophy. Spleen: Normal noncontrast appearance. Adrenal glands: Multiple surgical clips noted in the left suprarenal fossa. Nodular thickening of the right adrenal gland. Kidneys and ureters: Well-defined hypodensity at the upper pole the left kidney , likely cyst. No nephrolithiasis. Nonspecific perinephric fat stranding. No hydronephrosis. Ureters normal. Bladder: Decompressed with a Reyes catheter. Suggestion of bladder wall thickening. Pelvic organs: Prostate and seminal vesicles normal. Bowel: Large stool burden in the rectum. Moderate stool burden and the remainder of the normal caliber colon. The appendix is normal. No bowel obstruction. Peritoneal cavity: No free fluid or intraperitoneal gas. Extensive high density stranding in the retroperitoneum primarily on the left and in the extraperitoneal pelvis. This emanates from the enlarged left psoas muscle which contains a heterogeneous collection consistent with acute hematoma. The presence of a layering fluid fluid level is consistent with a hematocrit level. The hematoma measures up to 9 cm in maximal transverse dimension. This does not extend beyond the inguinal canal. Mild involvement of the left iliacus muscle. Lymph nodes: No gross lymphadenopathy allowing for noncontrast technique. Vasculature: Atherosclerosis of the normal caliber abdominal aorta. A left common femoral venous catheter is in place terminating in the left external iliac vein. Intravascular location is difficult to confirm without intravenous contrast. Abdominal wall: Mild body wall edema. Musculoskeletal: Degenerative changes of the spine." Vital Signs: Date Time Temp Pulse Resp B/P (MAP) Pulse Ox O2 Delivery O2 Flow Rate FiO2 06/10/17 11:50 Room Air 06/10/17 11:37 37.0 64 18 130/72 (91) 92 Room Air 06/10/17 07:51 37.4 102 20 121/83 (96) 93 Room Air 06/10/17 07:45 Room Air 06/10/17 04:00 36.4 86 20 152/86 (108) 96 Room Air 06/10/17 04:00 Room Air 06/10/17 00:00 36.5 68 18 100/55 (70) 95 Room Air 06/10/17 00:00 Room Air 06/09/17 20:20 36.7 82 16 115/75 (88) 96 Room Air 06/09/17 20:06 96 Room Air 06/09/17 16:21 36.7 91 16 126/77 (93) 96 Room Air 06/09/17 16:13 96 Room Air Lab Results: Results Past 24 Hours Test 06/09/17 16:16 06/09/17 19:26 06/09/17 20:37 06/10/17 04:38 Range/Units Bedside Glucose 107 225 70-99 mg/dl Activated Partial Thromboplast Time 64.6 64.1 21.0-31.0 SECONDS Partial Thromboplastin Ratio 2.5 2.5 Prothrombin Time 24.0 9.0-12.0 SECONDS Prothromb Time International Ratio 2.3 0.9-1.1 Sodium Level 139 136-145 mmol/L Potassium Level 5.0 3.5-5.1 mmol/L Chloride Level 107 98-107 mmol/L Carbon Dioxide Level 28 21-32 mmol/L Anion Gap 4.0 3-11 mmol/L Blood Urea Nitrogen 46 7-18 mg/dl Creatinine 2.86 0.60-1.40 mg/dl Est Creatinine Clear Calc Drug Dose 31.7 ml/min Estimated GFR () 25.9 Estimated GFR (Non- 22.4 BUN/Creatinine Ratio 16.0 10-20 Random Glucose 103 70-99 mg/dl Calcium Level 8.5 8.5-10.1 mg/dl Test 06/10/17 07:20 06/10/17 11:32 Range/Units Bedside Glucose 111 171 70-99 mg/dl
--- NOTE | 2017-06-10 14:47 | Discharge Instructions ---
Discharge Instructions Date of Service Jun 10, 2017. Admission Reason for Admission: Respiratory Failure, Acute Discharge Discharge Diagnosis / Problem: s/p Left retroperitoneal/Iliopsoas Hemorrhage, afib, couamdin, PAM/CKD Discharge Goals Goal(s): Improve function, Improve disease control Activity Recommendations Activity Limitations: per Instructions/Follow-up section Shower/Bathe: no limitations . Instructions / Follow-Up Instructions / Follow-Up s/p Left retroperitoneal/Iliopsoas Hemorrhage on this admission had Left Fem HD cath placement 05/29/17 and removal on 06/01/17 S/P 2 units PRBCs on this admission Anemia Likely from Acute blood loss from hematoma and Kidney disease, s/p 2 units PRBC on this hospital stay Nephrology service: has followed the patient for Acute Renal Failure on CKD and mild iron deficiency and has given patient venofer today am and then epo Acute Hypoxic respiratory failure: multifactorial Asthma Exacerbation on Nebs, Completed Prednisone taper Influenza/B/L Pneumonia: completed Tamiflu, completed 7 days Cefepime + Doxy, CXR on 06/08/17: Improving right lung airspace opacities ARPIT: Continue CPAP per Pulmonology Abnormal CT chest: (+) pulmonary nodules, Needs repeat CT in 6-8 weeks and follow up with Pulmonology as outpatient History of nonischemic cardiomyopathy, currently compensated chronic heart failure. Lasix and enalapril held for now due to Acute Renal Failure on CKD Continue Imdur, Hydralazine, carvedilol, aspirin New onset atrial fibrillation, controlled rate with combination of amiodarone and carvedilol Continue Coumadin HTN - on antihypertensive medications CKD IV with resolving acute kindey injury HHS, DM II Continue Insulin Chronic thrombocytopenia: Stable ---- Discharge Instructions/Follow ups Patient is to follow up with Dr. Hernandez on 06/07/17 at 8:45 AM at [address] [place] [address] [place] [address] for post hospital stay follow up (Dr. Bosch advises that PCP to check BMP and CBC on PCP follow up) Patient is to follow up with Dr. Bosch on 07/16/17 at 11:20 AM [facility] [address] [place] [address] Patient also is to see [facility] at [address], [place] [address] in 3 weeks (appointment not scheduled yet) For [facility] appointments please call [phone] [facility] appointment line also notified that patient will need anticoagulation clinic because he is now to be on warfarin Patient may need primary care doctor to refer to [facility] clinic or alternative pulmonary clinic for follow up of pulmonary nodules based on the following CT report on 06/01/17: "Lung bases: Patchy solid and peripherally groundglass opacities at the lung bases new from prior. More extensive dependent consolidation likely atelectasis. Small left pleural effusion. Mild multichamber enlargement of the heart. Intraventricular blood pool is less dense and adjacent myocardium suggesting anemia. Aortic valve and coronary artery calcification. Liver: Normal morphology. Density consistent with hepatic steatosis. Biliary: No gross biliary ductal dilatation allowing for noncontrast technique. Hyperdensity in the gallbladder possibly vicarious excretion of prior contrast or gallbladder sludge. Mild gallbladder wall thickening or para cholecystic fluid. No inflammatory change. Gallbladder is physiologically distended. Pancreas: Moderate parenchymal atrophy. Spleen: Normal noncontrast appearance. Adrenal glands: Multiple surgical clips noted in the left suprarenal fossa. Nodular thickening of the right adrenal gland. Kidneys and ureters: Well-defined hypodensity at the upper pole the left kidney , likely cyst. No nephrolithiasis. Nonspecific perinephric fat stranding. No hydronephrosis. Ureters normal. Bladder: Decompressed with a Reyes catheter. Suggestion of bladder wall thickening. Pelvic organs: Prostate and seminal vesicles normal. Bowel: Large stool burden in the rectum. Moderate stool burden and the remainder of the normal caliber colon. The appendix is normal. No bowel obstruction. Peritoneal cavity: No free fluid or intraperitoneal gas. Extensive high density stranding in the retroperitoneum primarily on the left and in the extraperitoneal pelvis. This emanates from the enlarged left psoas muscle which contains a heterogeneous collection consistent with acute hematoma. The presence of a layering fluid fluid level is consistent with a hematocrit level. The hematoma measures up to 9 cm in maximal transverse dimension. This does not extend beyond the inguinal canal. Mild involvement of the left iliacus muscle. Lymph nodes: No gross lymphadenopathy allowing for noncontrast technique. Vasculature: Atherosclerosis of the normal caliber abdominal aorta. A left common femoral venous catheter is in place terminating in the left external iliac vein. Intravascular location is difficult to confirm without intravenous contrast. Abdominal wall: Mild body wall edema. Musculoskeletal: Degenerative changes of the spine." Current Hospital Diet Patient's current hospital diet: Diabetes Type 2 Diet, AHA Diet (Heart Healthy) Discharge Diet Recommended Diet: AHA Diet (Heart Healthy), Diabetes Type 2 Diet Pending Studies Studies pending at discharge: no Laboratory Results 06/09/17 04:35 06/10/17 04:38 Test 05/23/17 02:40 05/23/17 04:13 05/23/17 05:16 05/23/17 08:20 Osmolality 309 mOsm/kg (280-300) Pro-B-Type Natriuretic Peptide 5010 pg/ml (0-900) Globulin 4.1 gm/dl (2.5-4.0) Albumin/Globulin Ratio 0.8 (0.9-2) Beta-Hydroxybutyric Acid 1.70 mg/dL (0.2-2.81) Chemistry Specimen Hemolysis Venous Blood pH 7.38 (7.36-7.41) Venous Blood Partial Pressure CO2 42 mmHg (38.0-50.0) Venous Blood Partial Pressure O2 48 mmHg Venous Blood HCO3 24 mmol/L Venous Blood Oxygen Saturation 81.1 % Venous Blood Base Excess -0.9 mEq/L Influenza Type A Antigen POS for Influ A (NEG) Influenza Type B Antigen Neg for Influ B (NEG) Urine Color YELLOW Urine Appearance CLEAR (CLEAR) Urine pH 5.0 (4.5-7.5) Urine Specific [place] 1.017 (1.000-1.030) Urine Protein 2+ (NEG) Urine Glucose (UA) 2+ (NEG) Urine Ketones NEG (NEG) Urine Occult Blood 1+ (NEG) Urine Nitrite NEG (NEG) Urine Bilirubin NEG (NEG) Urine Urobilinogen NEG (NEG) Urine Leukocyte Esterase NEG (NEG) Urine WBC (Auto) 1-5 /hpf (0-5) Urine RBC (Auto) 0-4 /hpf (0-4) Urine Hyaline Casts (Auto) 5-10 /lpf (0-5) Urine Epithelial Cells (Auto) 10-20 /lpf (0-5) Urine Bacteria (Auto) NEG (NEG) Test 05/24/17 05:54 05/27/17 05:37 05/27/17 22:24 05/28/17 06:38 Platelet Estimate DECREASED Estimated Average Glucose 226 mg/dl Hemoglobin A1c 9.5 % (4.5-5.6) Lactic Acid Level 1.6 mmol/L (0.4-2.0) Ammonia < 10.0 umol/L (11-32) Total Creatine Kinase 158 U/L (39-308) Creatine Kinase MB 5.8 ng/ml (0.5-3.6) Creatine Kinase MB Ratio 3.7 (0-3.0) Troponin I 0.392 ng/ml (0-0.045) Procalcitonin 1.51 ng/ml (0-0.5) Total Bilirubin 0.5 mg/dl (0.2-1) Direct Bilirubin 0.1 mg/dl (0-0.2) Aspartate Amino Transf (AST/SGOT) 24 U/L (15-37) Alanine Aminotransferase (ALT/SGPT) 27 U/L (12-78) Alkaline Phosphatase 54 U/L (45-117) Total Protein 5.8 gm/dl (6.4-8.2) Albumin 2.4 gm/dl (3.4-5.0) Test 05/28/17 14:58 05/30/17 04:30 05/30/17 20:21 05/31/17 05:26 Hepatitis B Surface Antigen NEG (NEG) Hepatitis B Surface Antibody NEG Hepatitis B Core Total Antibody NON-REACTIVE (NON-REACTIVE) Immature Granulocyte % (Auto) 0.5 % White Blood Count 8.00 K/uL (4.8-10.8) Red Blood Count 2.57 M/uL (4.7-6.1) Hemoglobin 7.0 g/dL (14.0-18.0) Hematocrit 20.7 % (42-52) Mean Corpuscular Volume 80.5 fL (80-100) Mean Corpuscular Hemoglobin 27.2 pg (25-34) Mean Corpuscular Hemoglobin Concent 33.8 g/dl (32-36) Platelet Count 127 K/uL (130-400) Mean Platelet Volume 9.5 fL (7.4-10.4) Neutrophils (%) (Auto) 79.9 % Lymphocytes (%) (Auto) 12.1 % Monocytes (%) (Auto) 7.4 % Eosinophils (%) (Auto) 0.0 % Basophils (%) (Auto) 0.1 % Neutrophils # (Auto) 6.39 K/uL (1.4-6.5) Lymphocytes # (Auto) 0.97 K/uL (1.2-3.4) Monocytes # (Auto) 0.59 K/uL (0.11-0.59) Eosinophils # (Auto) 0.00 K/uL (0-0.5) Basophils # (Auto) 0.01 K/uL (0-0.2) Immature Granulocyte # (Auto) 0.04 K/uL (0.00-0.02) Red Blood Cell Morphology Unremarkable Absolute Reticulocyte Count 0.04 10^6/uL (0.02-0.10) Percent Reticulocyte Count 1.6 % (0.5-2.0) Phosphorus Level 3.9 mg/dl (2.5-4.9) Magnesium Level 2.5 mg/dl (1.8-2.4) Test 06/01/17 07:28 06/03/17 15:01 06/09/17 04:35 06/10/17 04:38 Iron Level 51 mcg/dl (35-175) Total Iron Binding Capacity 248 mcg/dl (250-450) Transferrin 184 mg/dl (200-360) Transferrin % Saturation 20 % (20-50) Nucleated RBC Absolute Count (auto) 0.03 K/uL (0-0) Nucleated Red Blood Cells % 0.2 % Red Blood Count 2.84 M/uL (4.7-6.1) Mean Corpuscular Volume 89.4 fL (80-100) Mean Corpuscular Hemoglobin 28.9 pg (25-34) Mean Corpuscular Hemoglobin Concent 32.3 g/dl (32-36) RDW Standard Deviation 47.7 fL (36.4-46.3) RDW Coefficient of Variation 15.5 % (11.5-14.5) Mean Platelet Volume 8.7 fL (7.4-10.4) Prothrombin Time 24.0 SECONDS (9.0-12.0) Prothromb Time International Ratio 2.3 (0.9-1.1) Activated Partial Thromboplast Time 64.1 SECONDS (21.0-31.0) Partial Thromboplastin Ratio 2.5 Anion Gap 4.0 mmol/L (3-11) Est Creatinine Clear Calc Drug Dose 31.7 ml/min Estimated GFR () 25.9 Estimated GFR (Non- 22.4 BUN/Creatinine Ratio 16.0 (10-20) Calcium Level 8.5 mg/dl (8.5-10.1) Test 06/10/17 11:32 Bedside Glucose 171 mg/dl (70-99) Date/Time Source Procedure Growth Status 05/23/17 15:11 Blood Blood Culture - Final NO GROWTH Complete 05/25/17 09:15 Nasal MRSA DNA Surveillance Screen - Final Specimen Negative for MRSA by DNA Probe Complete 05/30/17 15:00 Sputum Expectorated Sputum Gram Stain - Final Complete 05/30/17 15:00 Sputum Expectorated Sputum Sputum Culture - Final MODERATE NORMAL OVIDIO. Complete Hemoglobin A1c Test 05/27/17 05:37 Range/Units Estimated Average Glucose 226 mg/dl Hemoglobin A1c 9.5 H 4.5-5.6 % Medical Emergencies . Who to Call and When: Medical Emergencies: If at any time you feel your situation is an emergency, please call 911 immediately. . Non-Emergent Contact Non-Emergency issues call your: Primary Care Provider Call Non-Emergent contact if: you have any medication questions . . "Provider Documentation" section prepared by Richard Larkin. . VTE Core Measure Inpt VTE Proph given/why not?: Unfractionated heparin SQ, Warfarin (Coumadin)
--- NOTE | 2017-06-10 14:49 | Discharge Summary ---
Discharge Summary Date of Service Jun 10, 2017. Discharge Summary Admission Date: May 23, 2017 at 04:18 Discharge Date: Jun 10, 2017 Discharge Disposition: Home Principal Diagnosis: s/p Left retroperitoneal/Iliopsoas Hemorrhage on this admission had Left Fem HD cath placement 05/29/17 and removal on 06/01/17 S/P 2 units PRBCs on this admission Anemia Likely from Acute blood loss from hematoma and Kidney disease, s/p 2 units PRBC on this hospital stay Acute Renal Failure on CKD and mild iron deficiency Acute Hypoxic respiratory failure Asthma Exacerbation Influenza/B/L Pneumonia ARPIT: Continue CPAP per Pulmonology Abnormal CT chest: (+) pulmonary nodules History of nonischemic cardiomyopathy, currently compensated chronic heart failure. New onset atrial fibrillation HTN - on antihypertensive medications HHS, DM II Chronic thrombocytopenia On coumadin Medication Reconciliation New Medications: Amiodarone HCl (Amiodarone HCl) 200 Mg Tab 200 MG PO BID for 30 Days, #60 TAB Hydralazine Hcl (Apresoline) 25 Mg Tab 12.5 MG PO TID for 30 Days, #45 TAB Insulin Glargine (Lantus Solostar) 100 Unit/Ml Inj 10 UNITS SC QAM for 30 Days, #3 ML Warfarin Sod (Coumadin) 5 Mg Tab 5 MG PO DAILY@16 for 30 Days, #30 TAB Continued Medications: Albuterol (Ventolin Hfa) 60 Puffs/5400 Mcg Aers 2 PUFFS INH Q4H PRN for SOB/Wheezing Amlodipine (Norvasc) 10 Mg Tab 10 MG PO DAILY, TAB Aspirin (Aspirin Ec) 81 Mg Tab 81 MG PO QAM Carvedilol (Carvedilol) 25 Mg Tab 12.5 MG PO BID Cholecalciferol (Vitamin D3) 2,000 Unit Tab 2000 INTER.UNIT PO QAM Duloxetine Hcl (Cymbalta) 60 Mg Cap 60 MG PO DAILY, CAP Fluticasone Furoate-Vilanterol (Breo Ellipta) 1 Inh Inh 1 PUFF PO DAILY Furosemide (Lasix) 20 Mg Tab 20 MG PO QAM, TAB Gabapentin (Neurontin) 300 Mg Cap 300 MG PO QID Home O2 Therapy (Oxygen) Gas 2 LITERS NA HS, BTL Insulin Aspart (Novolog Flexpen) 100 Units/Ml Inj 7 UNITS SQ QAM Insulin Aspart (Novolog Flexpen) 100 Units/Ml Inj 14 UNITS SQ UD with lunch and dinner Isosorbide Dinitrate (Isordil) 20 Mg Tab 20 MG PO TID, TAB Pantoprazole (Protonix) 40 Mg Tab 40 MG PO QAM Rosuvastatin Calcium (Crestor) 40 Mg Tab 40 MG PO HS, TAB Discontinued Medications: Enalapril Maleate (Enalapril Maleate) 20 Mg Tab 1 TAB PO NOON Insulin Glargine (Lantus Solostar) 100 Unit/Ml Inj 45 UNITS SC HS, PEN Admission Information HPI (per Admitting provider): CHIEF COMPLAINT: Shortness of breath. HISTORY OF PRESENT ILLNESS: History obtained from patient and records. Medical history significant for chronic systolic heart failure secondary to nonischemic cardiomyopathy, EF of 40% from 2D echo from March 2017, asthma, COPD as per records, aortic stenosis, hypertension, DM 2 insulin requiring, chronic renal insufficiency (baseline creatinine of 1.9-2), chronic anemia (baseline hemoglobin of 11-12), chronic thrombocytopenia chronic left bundle branch block, history of nonocclusive CAD as per records, DM 2, insulin requiring. Recent confinement last March 2017 for shortness of breath, Few days' history of flu-like symptoms, dry cough symptoms, unable to expectorate, symptoms not relieved by inhalers. Denies fluid retention, weight stable as per patient, chest pain with coughing. Denies aspiration. Claims to be compliant with the medications. Denies dietary indiscretion. May have been around sick contacts as he has a son who is currently confined at [facility]. He was brought to the Emergency Room, noted to be in respiratory distress. BiPAP started, Lasix given for CHF. MEDICAL HISTORY: As above. A 2D echo from March 2017 showed EF 35%, moderate reduced systolic function. Moderate aortic stenosis. Seen by [facility] Pulmonology April 2017 for evaluation of worsening dyspnea. Considerations included asthma, COPD, likely untreated obstructive sleep apnea. Physical Exam (per Admitting): PHYSICAL EXAMINATION: VITAL SIGNS: Blood pressure was noted to be 169/110, pulse rate 91, RR 32, temperature 37.9, sats 85 on room air, later 93 on BiPAP. GENERAL: Noted to be obese, respiratory distress. loquacious. SKIN: Pallor. Warm. HEENT: Alopecia. Pale palpebral conjunctivae. No ptosis. Dry buccal mucosa. BiPAP in place NECK: Supple. No tenderness. LUNGS: Decreased breath sounds. Expiratory wheezes. HEART: Regular rate and rhythm. Systolic murmur. ABDOMEN: Some distention, nontender. EXTREMITIES: minimal lower extremity edema. No tenderness. No gross deformities. NEUROLOGIC: Coherent. No gross focality. Hospital Course s/p Left retroperitoneal/Iliopsoas Hemorrhage on this admission had Left Fem HD cath placement 05/29/17 and removal on 06/01/17 S/P 2 units PRBCs on this admission Anemia Likely from Acute blood loss from hematoma and Kidney disease, s/p 2 units PRBC on this hospital stay Nephrology service: has followed the patient for Acute Renal Failure on CKD and mild iron deficiency and has given patient venofer today am and then epo Acute Hypoxic respiratory failure: multifactorial Asthma Exacerbation on Nebs, Completed Prednisone taper Influenza/B/L Pneumonia: completed Tamiflu, completed 7 days Cefepime + Doxy, CXR on 06/08/17: Improving right lung airspace opacities ARPIT: Continue CPAP per Pulmonology Abnormal CT chest: (+) pulmonary nodules, Needs repeat CT in 6-8 weeks and follow up with Pulmonology as outpatient History of nonischemic cardiomyopathy, currently compensated chronic heart failure. Lasix and enalapril held for now due to Acute Renal Failure on CKD Continue Imdur, Hydralazine, carvedilol, aspirin New onset atrial fibrillation, controlled rate with combination of amiodarone and carvedilol Continue Coumadin HTN - on antihypertensive medications CKD IV with resolving acute kindey injury HHS, DM II Continue Insulin Chronic thrombocytopenia: Stable ---- Discharge Instructions/Follow ups Patient is to follow up with Dr. Hernandez on 06/07/17 at 8:45 AM at [address] [place] [address] [place], [place] [id number] for post hospital stay follow up (Dr. Bosch advises that PCP to check BMP and CBC on PCP follow up) Patient is to follow up with Dr. Bosch on 07/16/17 at 11:20 AM [facility] [place] [address] [place] [address] Patient also is to see [facility] at [address], [facility] [place] [id number] in 3 weeks (appointment not scheduled yet) For [facility] appointments please call [phone] [facility] appointment [facility] also notified that patient will need anticoagulation clinic because he is now to be on warfarin Patient may need primary care doctor to refer to [facility] Pulmonary clinic or alternative pulmonary clinic for follow up of pulmonary nodules based on the following CT report on 06/01/17: "Lung bases: Patchy solid and peripherally groundglass opacities at the lung bases new from prior. More extensive dependent consolidation likely atelectasis. Small left pleural effusion. Mild multichamber enlargement of the heart. Intraventricular blood pool is less dense and adjacent myocardium suggesting anemia. Aortic valve and coronary artery calcification. Liver: Normal morphology. Density consistent with hepatic steatosis. Biliary: No gross biliary ductal dilatation allowing for noncontrast technique. Hyperdensity in the gallbladder possibly vicarious excretion of prior contrast or gallbladder sludge. Mild gallbladder wall thickening or para cholecystic fluid. No inflammatory change. Gallbladder is physiologically distended. Pancreas: Moderate parenchymal atrophy. Spleen: Normal noncontrast appearance. Adrenal glands: Multiple surgical clips noted in the left suprarenal fossa. Nodular thickening of the right adrenal gland. Kidneys and ureters: Well-defined hypodensity at the upper pole the left kidney , likely cyst. No nephrolithiasis. Nonspecific perinephric fat stranding. No hydronephrosis. Ureters normal. Bladder: Decompressed with a Reyes catheter. Suggestion of bladder wall thickening. Pelvic organs: Prostate and seminal vesicles normal. Bowel: Large stool burden in the rectum. Moderate stool burden and the remainder of the normal caliber colon. The appendix is normal. No bowel obstruction. Peritoneal cavity: No free fluid or intraperitoneal gas. Extensive high density stranding in the retroperitoneum primarily on the left and in the extraperitoneal pelvis. This emanates from the enlarged left psoas muscle which contains a heterogeneous collection consistent with acute hematoma. The presence of a layering fluid fluid level is consistent with a hematocrit level. The hematoma measures up to 9 cm in maximal transverse dimension. This does not extend beyond the inguinal canal. Mild involvement of the left iliacus muscle. Lymph nodes: No gross lymphadenopathy allowing for noncontrast technique. Vasculature: Atherosclerosis of the normal caliber abdominal aorta. A left common femoral venous catheter is in place terminating in the left external iliac vein. Intravascular location is difficult to confirm without intravenous contrast. Abdominal wall: Mild body wall edema. Musculoskeletal: Degenerative changes of the spine." Total time spent on discharge = This includes examination of the patient, discharge planning, medication reconciliation, and communication with other providers. Discharge Instructions see above
[2017-06-10 14:55] VITALS: BP 130/72; PULSE 64; TEMP 37; O2SAT 92
[2017-06-10] MEDS: WARFARIN SOD 5 MG TAB PO SCH (15:06)
[2017-06-10 15:58] VITALS: BP 115/74; PULSE 68; TEMP 36.5; O2SAT 95
--- NOTE | 2017-06-10 16:22 | PROGRESS NOTE ---
DATE: 06/10/2017 CARDIOLOGY CONSULTATION FOLLOWUP NOTE The patient seen and examined. Chart, medications, telemetry reviewed. SUBJECTIVE: The patient notes no overt complaints this morning. Denies any chest pain or discomfort. Notes no dizziness or lightheadedness. Notes no orthopnea. Peripheral edema remains persistent though not worsening. Weight is stable at 110 kilograms. OBJECTIVE: VITAL SIGNS: Heart rate is 60-80, blood pressure is 130/72. NECK: Thick. There is no distinct jugular venous distention. LUNGS: Clear. CARDIOVASCULAR: Irregularly irregular. There is no S3 gallop. ABDOMEN: Soft, nontender. EXTREMITIES: Without cyanosis or clubbing. There is chronic 2+ lower extremity edema. LABORATORY DATA: INR is 2.3. Sodium is 139, potassium is 5.0, chloride is 107, bicarbonate is 28, BUN is 46, and creatinine is 2.86. IMPRESSION AND PLAN: A 62-year-old male with underlying history of nonischemic cardiomyopathy, admitted with pneumonia, respiratory failure secondary to influenza, complicated by atrial fibrillation with rapid ventricular response and acute renal failure. The patient is gradually improving, rhythms appeared to have stabilized in atrial fibrillation with controlled ventricular response rate with combination of amiodarone and carvedilol. All medications will be continued. The patient is now appropriately anticoagulated with warfarin. Will anticipate reevaluating function at 3 weeks' time. Consider return to sinus rhythm as part of ongoing management. Currently compensated from heart failure standpoint ____ renal function minimally improved today.
[2017-06-25] MEDS ORDERED: AMLO-114 PO (03:05)
[2017-06-25] MEDS ORDERED: FURO-85 PO (03:07)
[2017-06-25] MEDS ORDERED: FLUT1INH PO (03:47)
[2017-06-25] MEDS ORDERED: DULO60CA44 PO (03:47)
[2017-07-05] MEDS ORDERED: NRV5 PO ×2 (14:26→15:23)
[2017-07-05] MEDS ORDERED: DMD20 PO ×2 (14:26→15:23)
[2017-07-05] MEDS ORDERED: TPRSR50 PO ×2 (14:26→15:23)
[2017-07-05] MEDS ORDERED: APR25 PO ×2 (14:26→15:23)
== END 2017-06-10 16:15 | disposition home or self-care (01) | DRG 291 ==
LOC: EDBD 02:39 → C.EDB 02:40 → C.2T 04:18 → ENRESERV 04:28 → C.2T 05:54 → C.MSICU 05-25 08:43 → EDBEDREQSVC 05-25 09:05 → ENRESERV 05-25 09:07 → EDBEDREQ 05-31 15:45 → ENRESERV 05-31 16:05 → C.MED 05-31 17:22
PROVIDERS: ADMIT Internal Medicine; ATTEND Hospitalist
DX: I13.0 Hypertensive heart and chronic kidney disease with heart failure and stage 1 through stage 4 chronic kidney disease, or unspecified chronic kidney disease (principal); I50.43 Acute on chronic combined systolic (congestive) and diastolic (congestive) heart failure; I97.621 Postprocedural hematoma of a circulatory system organ or structure following other procedure; J11.00 Influenza due to unidentified influenza virus with unspecified type of pneumonia; G93.49 Other encephalopathy; J96.01 Acute respiratory failure with hypoxia; J18.9 Pneumonia, unspecified organism; N18.4 Chronic kidney disease, stage 4 (severe); J45.901 Unspecified asthma with (acute) exacerbation; E11.00 Type 2 diabetes mellitus with hyperosmolarity without nonketotic hyperglycemic-hyperosmolar coma (NKHHC); N17.0 Acute kidney failure with tubular necrosis; D62 Acute posthemorrhagic anemia; I42.9 Cardiomyopathy, unspecified; I25.10 Atherosclerotic heart disease of native coronary artery without angina pectoris; S30.1XXA Contusion of abdominal wall, initial encounter; E11.21 Type 2 diabetes mellitus with diabetic nephropathy; E78.5 Hyperlipidemia, unspecified; I44.7 Left bundle-branch block, unspecified; Z83.3 Family history of diabetes mellitus; D63.1 Anemia in chronic kidney disease; D69.6 Thrombocytopenia, unspecified; G47.33 Obstructive sleep apnea (adult) (pediatric); Z79.4 Long term (current) use of insulin; I35.0 Nonrheumatic aortic (valve) stenosis; Y84.8 Other medical procedures as the cause of abnormal reaction of the patient, or of later complication, without mention of misadventure at the time of the procedure; Y92.239 Unspecified place in hospital as the place of occurrence of the external cause

== ENCOUNTER 2017-06-25 13:19 | Inpatient (IN) | payer BC, OTHER ==
[~2017-06-25] VITALS: Ht 172.7 cm; Wt 111.4 kg
[~2017-06-25 13:19] MED LIST changes: +APR25 PO; +CMD5 PO; +CRD200 PO; +DULO60CA44 PO; -ENAL20TA PO; +FLUT1INH PO; +FURO-85 PO; -LSX20 PO
[2017-06-25] MEDS ORDERED: FENTANYL CITRATE INJ 50 MCG/1 ML 2 ML VIAL IV PRN (13:30)
[2017-06-25] MEDS ORDERED: ONDANSETRON INJ 2 MG/ML 2 ML VIAL IV STA (13:30)
[2017-06-25] MEDS ORDERED: SODIUM CHLORIDE 0.9% 1000ML 1,000 ML IV STA (13:33)
[2017-06-25] MEDS ORDERED: FENTANYL CITRATE INJ 50 MCG/1 ML 2 ML VIAL ONE (13:33)
[2017-06-25] MEDS ORDERED: ONDANSETRON INJ 2 MG/ML 2 ML VIAL ONE (13:33)
[2017-06-25 13:50] LABS: BASO % 0.2 %; BASO ABS # 0.01 K/uL (0-0.2); EOS % 1.1 %; EOS ABS # 0.05 K/uL (0-0.5); HEMATOCRIT 28.2 % (42-52); HEMOGLOBIN 9.1 g/dL (14.0-18.0); IG# 0.04 K/uL (0.00-0.02); LYMPH % 12.4 %; LYMPH ABS # 0.56 K/uL (1.2-3.4); MEAN CELL VOLUME 87.6 fL (80-100); MEAN CORPUSCULAR HEMOGLOBIN 28.3 pg (25-34); MEAN CORPUSCULAR HGB CONC 32.3 g/dl (32-36); MEAN PLATELET VOLUME 8.4 fL (7.4-10.4); MONO % 8.9 %; NEUT % 76.5 %; NEUT ABS # 3.45 K/uL (1.4-6.5); PLATELET COUNT 241 K/uL (130-400); RED CELL DISTRIBUTION WIDTH CV 16.7 % (11.5-14.5); RED CELL DISTRIBUTION WIDTH SD 53.5 fL (36.4-46.3); WHITE BLOOD COUNT 4.51 K/uL (4.8-10.8)
--- NOTE | 2017-06-25 13:51 | DIAGNOSTIC IMAGING REPORT ---
CHEST ONE VIEW PORTABLE CLINICAL HISTORY: Atypical chest pain, shortness of breath. Dizziness. COMPARISON STUDY: June 08, 2017 FINDINGS: The heart is mildly enlarged. There is no focal pulmonary consolidation. There is no overt failure. There are no pleural effusions.[ IMPRESSION: Cardiomegaly. No acute findings. Electronically signed by: Indra Aguilar M.D. 06/25/2017 1:50 PM Dictated Date/Time: 06/25/2017 1:49 PM
[2017-06-25 13:52] LABS: ISTAT CREATININE 2.9 mg/dl (0.6-1.3); ISTAT IONIZED CALCIUM 1.15 mmol/l (1.12-1.32); ISTAT POTASSIUM 4.6 mEq/L (3.3-5.0)
[2017-06-25 14:11] LABS: INR 2.7 (0.9-1.1); PTT PATIENT 36.4 SECONDS (21.0-31.0)
[2017-06-25 14:25] LABS: ALBUMIN 2.7 gm/dl (3.4-5.0); CALCIUM 8.5 mg/dl (8.5-10.1); POTASSIUM 4.5 mmol/L (3.5-5.1)
[2017-06-25 14:29] LABS: TOTAL PROTEIN 6.5 gm/dl (6.4-8.2)
[2017-06-25] MEDS ORDERED: PANT40TA PO (14:33)
[2017-06-25 14:51] LABS: CKMB 2.8 ng/ml (0.5-3.6)
[2017-06-25 14:52] VITALS: O2SAT 96; BMI 36.9
[2017-06-25] MEDS ORDERED: AMIO200T4 PO (15:22)
[2017-06-25] MEDS ORDERED: INSDGIPEN SQ (15:22)
[2017-06-25] MEDS ORDERED: GABA-113 PO (15:22)
[2017-06-25] MEDS ORDERED: ISS/10 PO (15:22)
[2017-06-25] MEDS ORDERED: IPRASOL4 INH (15:22)
[2017-06-25] MEDS ORDERED: WARF5TAB90 PO (15:22)
[2017-06-25] MEDS ORDERED: HYDR-4716 PO (15:22)
[2017-06-25] MEDS ORDERED: INSULIN HUMAN REGULAR PER UNIT 10 UNITS in SYRINGE 9.9 ML IV STA (15:58)
[2017-06-25] MEDS ORDERED: INSULIN ASPART 100 UNITS/ML 3 ML PEN SC STA (15:59)
[2017-06-25] MEDS ORDERED: GLUCOSE 10 TABS/TUBE PO PRN (16:00)
[2017-06-25] MEDS ORDERED: ALUMINUM/MAGNESIUM/SIMETH (MAALOX MAX) 30 ML UDC PO PRN (16:00)
[2017-06-25] MEDS ORDERED: PHARMACY GLYCEMIC MGMT CONSULT PRN (16:00)
[2017-06-25] MEDS ORDERED: GLUCOSE 40% GEL 15 GM TUBE PO PRN (16:00)
[2017-06-25] MEDS ORDERED: DEXTROSE 50% 50 ML SYR IV PRN (16:00)
[2017-06-25] MEDS ORDERED: ASPIRIN 81 MG ECTAB PO ONE (16:00)
[2017-06-25] MEDS ORDERED: GLUCAGON FOR INJ 1 MG VIAL SQ PRN (16:00)
[2017-06-25] MEDS ORDERED: MAGNESIUM HYDROXIDE SUSP 30 ML UDC PO PRN (16:00)
[2017-06-25] MEDS ORDERED: ACETAMINOPHEN 325 MG TAB PO PRN (16:00)
[2017-06-25] MEDS ORDERED: IV FLUIDS COMPLETED PRN (16:15)
[2017-06-25] MEDS ORDERED: ALBUT/IPRATROP 3MG/0.5MG NEB 3 ML VIAL INH PRN (16:15)
[2017-06-25] MEDS ORDERED: ALBUTEROL HFA 8 GM INHALER INH PRN (16:15)
--- NOTE | 2017-06-25 16:46 | EMERGENCY ROOM VISIT NOTE ---
History Report prepared by Felipe: Stevo Kenny Under the Supervision of: Dr. Arpan Cameron M.D. First contact with patient: 13:27 Chief Complaint: CHEST PAIN Stated Complaint: SHORT OF BREATH, CHEST PAIN, DIZZY Nursing Triage Summary: pt reports chest pain started yesterday, feels sob and described as heaviness. History of Present Illness The patient is a 62 year old male who presents to the Emergency Room with complaints of constant chest pain that began this morning. The patient describes his pain as "terrible" and describes his discomfort as "someone sitting on his chest." He rates the pain as a 8/10 in severity. His discomfort is worsened by deep inspiration. He also complains of nausea, but denies any diaphoresis/radiation of pain to the neck or arms. The patient is on Warfarin as a blood thinner. His notes that his right leg has been more swollen than the left recently. He had a "silent heart attack" lat year. The patient was in the hospital 1.5 weeks ago and was diagnosed with influenza pneumonia. The patient has had transfusions in the past, secondary to bleeding with dialysis. He denies LOC, headache, fevers, chills, visual changes, vomiting, abdominal pain, back pain, melena, hematochezia, urinary symptoms, numbness, weakness, lymphadenopathy, rash, or other complaints. Source of History: patient Onset: This morning Position: chest Symptom Intensity: 8/10 Quality: other ("Someone sitting on his chest." ) Timing: constant Modifying Factors (Worsening): breathing (Deep inhilation) Associated Symptoms: + nausea, No diaphoresis Review of Systems See HPI for pertinent positives and negatives. A total of ten systems were reviewed and were otherwise negative. Past Medical & Surgical Medical Problems: (1) Asthma (2) CAD (coronary artery disease) (3) Chest pain (4) CKD (chronic kidney disease), stage III (5) DM type 2 (diabetes mellitus, type 2) (6) Dyslipidemia (7) Hypertension (8) LBBB (left bundle branch block) (9) Mild aortic stenosis (10) Nonischemic cardiomyopathy (11) Respiratory failure, acute Surgical Problems: (1) H/O cardiac catheterization (2) S/p adrenal gland surgery Family History Diabetes mellitus SISTER BROTHER FH: CHF (congestive heart failure) MOTHER Hypertension SON Social History Smoking Status: Never Smoker Drug Use: none Marital Status: Housing Status: lives with significant other Occupation Status: retired Current/Historical Medications Scheduled Amiodarone Hcl (Cordarone), 200 MG PO BID Amlodipine (Norvasc), 10 MG PO DAILY Aspirin (Aspirin Ec), 81 MG PO QAM Carvedilol (Carvedilol), 12.5 MG PO BID Cholecalciferol (Vitamin D3), 2,000 INTER.UNIT PO QAM Duloxetine Hcl (Cymbalta), 60 MG PO DAILY Fluticasone Furoate-Vilanterol (Breo Ellipta), 1 PUFF PO DAILY Furosemide (Lasix), 20 MG PO QAM Gabapentin (Neurontin), 600 MG PO TID Hydralazine HCl (Hydralazine HCl), 12.5 MG PO BID Insulin Aspart (Novolog Flexpen), 7 UNITS SQ QAM Insulin Aspart (Novolog Flexpen), 14 UNITS SQ UD Insulin Glargine (Lantus Solostar), 45 UNITS SQ PM Isosorbide Dinitrate (Isordil), 20 MG PO TID Pantoprazole (Protonix), 40 MG PO QAM Rosuvastatin Calcium (Crestor), 40 MG PO HS Warfarin Sodium (Coumadin), 5 MG PO DAILY Scheduled PRN Albuterol (Ventolin Hfa), 2 PUFFS INH Q4H PRN for SOB/Wheezing Ipratropium-Albuterol (Duoneb), 1 TREATMENT INH QID PRN for SOB/Wheezing Allergies Coded Allergies: No Known Allergies (Verified , 05/23/17) Physical Exam Vital Signs Date Time Temp Pulse Resp B/P (MAP) Pulse Ox O2 Delivery O2 Flow Rate FiO2 06/25/17 16:29 88 20 103/68 96 Room Air 3.0 06/25/17 15:58 83 20 94/79 93 Nasal Cannula 3.0 06/25/17 15:00 84 20 117/83 96 Nasal Cannula 3.0 06/25/17 14:52 96 Nasal Cannula 2.0 06/25/17 14:18 85 06/25/17 13:53 96 Nasal Cannula 2.0 06/25/17 13:50 96 Nasal Cannula 4.0 06/25/17 13:50 96 Nasal Cannula 4.0 06/25/17 13:25 36.3 92 24 101/72 88 Room Air Physical Exam GENERAL: Awake, alert, well-appearing, in no acute distress HENT: Normocephalic, atraumatic. Oropharynx unremarkable. EYES: Pale conjunctiva. Sclera non-icteric. NECK: Supple. No nuchal rigidity. FROM. No JVD. RESPIRATORY: Clear to auscultation. CARDIAC: Borderline tachycardic rate, with a normal rhythm. Extremities warm and well perfused. Pulses equal. ABDOMEN: Soft, non-distended. No tenderness to palpation. No rebound or guarding. No masses. RECTAL: Deferred. MUSCULOSKELETAL: Chest examination reveals no tenderness. The back is symmetrical on inspection without obvious abnormality. There is no CVA tenderness to palpation. No joint edema. LOWER EXTREMITIES: Calves are equal size bilaterally and non-tender. There is 2 + pedal edea bilaterally, slightly worse on the right. No discoloration. NEURO: Normal sensorium. No sensory or motor deficits noted. SKIN: No rash or jaundice noted. Medical Decision & Procedures ER Provider Diagnostic Interpretation: Radiology results as stated below per my review and radiologist interpretation: CHEST ONE VIEW PORTABLE CLINICAL HISTORY: Atypical chest pain, shortness of breath. Dizziness. COMPARISON STUDY: June 08, 2017 FINDINGS: The heart is mildly enlarged. There is no focal pulmonary consolidation. There is no overt failure. There are no pleural effusions.[ IMPRESSION: Cardiomegaly. No acute findings. Electronically signed by: Indra Aguilar M.D. 06/25/2017 1:50 PM Dictated Date/Time: 06/25/2017 1:49 PM Laboratory Results 06/25/17 13:35 Red Blood Count 3.22, Mean Corpuscular Volume 87.6, Mean Corpuscular Hemoglobin 28.3, Mean Corpuscular Hemoglobin Concent 32.3, Mean Platelet Volume 8.4, Neutrophils (%) (Auto) 76.5, Lymphocytes (%) (Auto) 12.4, Monocytes (%) (Auto) 8.9, Eosinophils (%) (Auto) 1.1, Basophils (%) (Auto) 0.2, Neutrophils # (Auto) 3.45, Lymphocytes # (Auto) 0.56, Monocytes # (Auto) 0.40, Eosinophils # (Auto) 0.05, Basophils # (Auto) 0.01 06/25/17 13:35 Test 06/25/17 13:35 06/25/17 13:41 06/25/17 13:42 06/25/17 15:51 White Blood Count 4.51 K/uL (4.8-10.8) Red Blood Count 3.22 M/uL (4.7-6.1) Hemoglobin 9.1 g/dL (14.0-18.0) Hematocrit 28.2 % (42-52) Mean Corpuscular Volume 87.6 fL (80-100) Mean Corpuscular Hemoglobin 28.3 pg (25-34) Mean Corpuscular Hemoglobin Concent 32.3 g/dl (32-36) Platelet Count 241 K/uL (130-400) Mean Platelet Volume 8.4 fL (7.4-10.4) Neutrophils (%) (Auto) 76.5 % Lymphocytes (%) (Auto) 12.4 % Monocytes (%) (Auto) 8.9 % Eosinophils (%) (Auto) 1.1 % Basophils (%) (Auto) 0.2 % Neutrophils # (Auto) 3.45 K/uL (1.4-6.5) Lymphocytes # (Auto) 0.56 K/uL (1.2-3.4) Monocytes # (Auto) 0.40 K/uL (0.11-0.59) Eosinophils # (Auto) 0.05 K/uL (0-0.5) Basophils # (Auto) 0.01 K/uL (0-0.2) RDW Standard Deviation 53.5 fL (36.4-46.3) RDW Coefficient of Variation 16.7 % (11.5-14.5) Immature Granulocyte % (Auto) 0.9 % Immature Granulocyte # (Auto) 0.04 K/uL (0.00-0.02) Prothrombin Time 27.3 SECONDS (9.0-12.0) Prothromb Time International Ratio 2.7 (0.9-1.1) Activated Partial Thromboplast Time 36.4 SECONDS (21.0-31.0) Partial Thromboplastin Ratio 1.4 Est Creatinine Clear Calc Drug Dose 30.3 ml/min Estimated GFR () 24.5 Estimated GFR (Non- 21.1 BUN/Creatinine Ratio 16.0 (10-20) Calcium Level 8.5 mg/dl (8.5-10.1) Total Bilirubin 0.4 mg/dl (0.2-1) Direct Bilirubin 0.2 mg/dl (0-0.2) Aspartate Amino Transf (AST/SGOT) 17 U/L (15-37) Alanine Aminotransferase (ALT/SGPT) 32 U/L (12-78) Alkaline Phosphatase 110 U/L (45-117) Total Creatine Kinase 77 U/L (39-308) Creatine Kinase MB 2.8 ng/ml (0.5-3.6) Creatine Kinase MB Ratio 3.6 (0-3.0) Total Protein 6.5 gm/dl (6.4-8.2) Albumin 2.7 gm/dl (3.4-5.0) Lipase 50 U/L (73-393) Beta-Hydroxybutyric Acid 0.57 mg/dL (0.2-2.81) Bedside Hemoglobin 9.2 g/dl (14.0-18.0) Bedside Hematocrit 27 % (42-52) Bedside Sodium 136 mEq/L (135-144) Bedside Potassium 4.6 mEq/L (3.3-5.0) Bedside Chloride 99 mEq/L (101-112) Bedside Total CO2 28 mEq/l (24-31) Anion Gap 15.0 mmol/L (16-25) Bedside Blood Urea Nitrogen 48 mg/dl (7-18) Bedside Creatinine 2.9 mg/dl (0.6-1.3) Bedside Glucose (other) 320 mg/dl (70-99) Bedside Ionized Calcium (Pricilla) 1.15 mmol/l (1.12-1.32) Bedside Troponin I 0.030 ng/ml (0-0.045) Laboratory results reviewed by me Medications Administered Medications (Trade) Dose Ordered Sig/Larry Route Start Time Stop Time Status Last Admin Dose Admin Ondansetron HCl (Zofran Inj) 4 mg NOW STAT IV 06/25/17 13:30 06/25/17 13:33 DC 06/25/17 13:30 4 MG Sodium Chloride 1,000 ml @ 125 mls/hr Q8H STAT IV 06/25/17 13:33 06/25/17 16:16 DC 06/25/17 13:49 125 MLS/HR Fentanyl Citrate (Fentanyl Inj) 100 mcg K-MED ONCE .ROUTE 06/25/17 13:33 06/25/17 13:34 DC 06/25/17 13:33 50 MCG Insulin Human Regular 10 units/ Syringe 10 ml @ 60 mls/min TODAY@1558 STAT IV 06/25/17 15:58 06/25/17 16:00 DC 06/25/17 16:32 60 MLS/MIN ECG Per My Interpretation Indication: chest pain Rate (beats per minute): 101 Rhythm: atrial fibrillation (with RVR) Findings: LBBB, other (No Sgarbossa Criteria) Comparison ECG Date: 06/05/2017 Change: no significant change ED Course 1329: The patient was evaluated in room B1. A complete history and physical exam was performed. 1330: Ordered Zofran 4 mg IV, Fentanyl 50 mcg IV. 1333: Ordered Sodium Chloride 1000 mL @ 125 mL/hr IV. 1437: I discussed the case with Stacey Jacobs. She will evaluate the patient for further treatment. Medical Decision Triage Nursing notes reviewed. The patient's presentation and history were concerning for chest pain. Etiologies such as cardiac ischemia, aortic dissection, pulmonary embolism, pneumonia, pneumothorax, musculoskeletal, infections, gastrointestinal, as well as others were entertained. The patient was evaluated. He was uncomfortable. He was given a dose of fentanyl and Zofran. His ECG showed an old left bundle branch block. There was not any acute changes. Chest x-ray was performed and did not reveal any acute findings. The patient had a mild anemia and therapeutic INR on blood work. Cardiac markers were negative. He was hyperglycemic. Renal insufficiency was also noted. On reassessment he was feeling better. Given the history and his pain further management in the hospital was felt to be appropriate. Consultation was made with internal medicine. The patient was evaluated in the ER for further management. Medication Reconcilliation Current Medication List: was personally reviewed by me Blood Pressure Screening Patient's blood pressure: Normal blood pressure Consults Time Called: 1426 Consulting Physician: Stacey Hampton PA-C Returned Call: [phone] I discussed the case with Stacey Delatorre PA-C. She will evaluate the patient for further treatment. Impression Primary Impression: Substernal chest pain Scribe Attestation The scribe's documentation has been prepared under my direction and personally reviewed by me in its entirety. I confirm that the note above accurately reflects all work, treatment, procedures, and medical decision making performed by me. Departure Information Dispostion Being Evaluated By Hospitalist Mabel Rueda M.D. (PCP) Patient Instructions My [facility]
[2017-06-25 16:54] VITALS: BP 116/78; PULSE 90; TEMP 36.5; O2SAT 93
--- NOTE | 2017-06-25 16:54 | History and Physical ---
History & Physical Date & Time of Service: Jun 25, 2017 at 16:40 Chief Complaint: Short Of Breath, Chest Pain, Dizzy Primary Care Physician: Mabel Butts M.D. 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 Patient woke up during the night with shortness of breath that was improved once he sat upright in bed. Took his nebulizer at 3:30am which improved his breathing. Wears 2L NC O2 at night. Then started to experience left sided chest pain that he describes as "someone sitting on my chest", 8/10 in severity and made worse with coughing or exertion. Non-radiating. Endorses associated lightheadedness but denies diaphoresis, nausea or vomiting. Notes that his lower legs have been more swollen over the past few days but denies any weight gain overall. Denies fever, chills, syncope, headache, visual changes, palpitations, abdominal pain or bowel/bladder changes. Was admitted May 23- for acute respiratory failure 2/2 influenza/ bilateral PNA and A Fib. States that he has been very sedentary since then and feels weak when ambulating. Had to borrow a family member's walker because he does not have to endurance to move around the house without it. In terms of cardiac history, patient most recently underwent cardiac cath in June 2016 and was found to have nonischemic cardiomyopathy with reduced global systolic function and mild CAD with recommendation for medical management. Most recent echo is from Mar 2017 with EF of 35-40%, moderate concentric LVH, septal wall motion abnormality consistent with left bundle branch block and moderate global hypokinesis otherwise. Has A Fib and is on coumadin. INR of 2.7 today. Past Medical/Surgical History Medical Problems: (1) Asthma Status: Chronic (2) CAD (coronary artery disease) Permanent Comment: nonobstructive Status: Chronic (3) CKD (chronic kidney disease), stage III Status: Chronic (4) DM type 2 (diabetes mellitus, type 2) Status: Chronic (5) Dyslipidemia Status: Chronic (6) Hypertension Status: Chronic (7) LBBB (left bundle branch block) Status: Chronic (8) Mild aortic stenosis Status: Chronic (9) Nonischemic cardiomyopathy Permanent Comment: EF 45-49% on echo 08/2014 Status: Chronic Surgical Problems: (1) H/O cardiac catheterization Permanent Comment: 03/29/2012- mild nonobstructive CAD Status: Chronic (2) S/p adrenal gland surgery Status: Chronic Family History Diabetes mellitus SISTER BROTHER FH: CHF (congestive heart failure) MOTHER Hypertension SON Social History Smoking Status: Never Smoker Smokeless Tobacco Use: Yes (daily ) Drug Use: none Marital Status: Housing status: lives with significant other Occupational Status: retired Allergies Coded Allergies: No Known Allergies (Verified , 05/23/17) Home Medications Scheduled Amiodarone Hcl (Cordarone), 200 MG PO BID Amlodipine (Norvasc), 10 MG PO DAILY Aspirin (Aspirin Ec), 81 MG PO QAM Carvedilol (Carvedilol), 12.5 MG PO BID Cholecalciferol (Vitamin D3), 2,000 INTER.UNIT PO QAM Duloxetine Hcl (Cymbalta), 60 MG PO DAILY Fluticasone Furoate-Vilanterol (Breo Ellipta), 1 PUFF PO DAILY Furosemide (Lasix), 20 MG PO QAM Gabapentin (Neurontin), 600 MG PO TID Hydralazine HCl (Hydralazine HCl), 12.5 MG PO BID Insulin Aspart (Novolog Flexpen), 7 UNITS SQ QAM Insulin Aspart (Novolog Flexpen), 14 UNITS SQ UD Insulin Glargine (Lantus Solostar), 45 UNITS SQ PM Isosorbide Dinitrate (Isordil), 20 MG PO TID Pantoprazole (Protonix), 40 MG PO QAM Rosuvastatin Calcium (Crestor), 40 MG PO HS Warfarin Sodium (Coumadin), 5 MG PO DAILY Scheduled PRN Albuterol (Ventolin Hfa), 2 PUFFS INH Q4H PRN for SOB/Wheezing Ipratropium-Albuterol (Duoneb), 1 TREATMENT INH QID PRN for SOB/Wheezing Review of Systems Ten systems reviewed and negative except as noted in the HPI. Physical Exam Vital Signs Date Time Temp Pulse Resp B/P (MAP) Pulse Ox O2 Delivery O2 Flow Rate FiO2 06/25/17 16:29 88 20 103/68 96 Room Air 3.0 06/25/17 15:58 83 20 94/79 93 Nasal Cannula 3.0 06/25/17 15:00 84 20 117/83 96 Nasal Cannula 3.0 06/25/17 14:52 96 Nasal Cannula 2.0 06/25/17 14:18 85 06/25/17 13:53 96 Nasal Cannula 2.0 06/25/17 13:50 96 Nasal Cannula 4.0 06/25/17 13:50 96 Nasal Cannula 4.0 06/25/17 13:25 36.3 92 24 101/72 88 Room Air General Appearance: WD/WN, no apparent distress, + pertinent finding ( Breathing comfortably on NC O2 ) Head: normocephalic, atraumatic Eyes: normal inspection, PERRL, sclerae normal ENT: normal ENT inspection, hearing grossly normal, pharynx normal Neck: supple, thyroid normal, trachea midline Respiratory/Chest: lungs clear, no respiratory distress, no accessory muscle use, + crackles (faint bibasilar crackles ), + pertinent finding (Left chest with reproducible pain on palpation ) Cardiovascular: no murmur, normal peripheral pulses, + irregularly irregular, + pertinent finding (2+ bilateral pretibial pitting edema ) Abdomen/GI: non tender, soft, no organomegaly Back: normal inspection Extremities/Musculoskelatal: normal inspection, no calf tenderness, non-tender Neurologic/Psych: no motor/sensory deficits, alert, normal mood/affect, oriented x 3 Skin: normal color, warm/dry Diagnostics Laboratory Results Results Past 24 Hours Test 06/25/17 13:35 06/25/17 13:41 06/25/17 13:42 06/25/17 15:51 Range/Units White Blood Count 4.51 4.8-10.8 K/uL Red Blood Count 3.22 4.7-6.1 M/uL Hemoglobin 9.1 14.0-18.0 g/dL Hematocrit 28.2 42-52 % Mean Corpuscular Volume 87.6 80-100 fL Mean Corpuscular Hemoglobin 28.3 25-34 pg Mean Corpuscular Hemoglobin Concent 32.3 32-36 g/dl Platelet Count 241 130-400 K/uL Mean Platelet Volume 8.4 7.4-10.4 fL Neutrophils (%) (Auto) 76.5 % Lymphocytes (%) (Auto) 12.4 % Monocytes (%) (Auto) 8.9 % Eosinophils (%) (Auto) 1.1 % Basophils (%) (Auto) 0.2 % Neutrophils # (Auto) 3.45 1.4-6.5 K/uL Lymphocytes # (Auto) 0.56 1.2-3.4 K/uL Monocytes # (Auto) 0.40 0.11-0.59 K/uL Eosinophils # (Auto) 0.05 0-0.5 K/uL Basophils # (Auto) 0.01 0-0.2 K/uL RDW Standard Deviation 53.5 36.4-46.3 fL RDW Coefficient of Variation 16.7 11.5-14.5 % Immature Granulocyte % (Auto) 0.9 % Immature Granulocyte # (Auto) 0.04 0.00-0.02 K/uL Prothrombin Time 27.3 9.0-12.0 SECONDS Prothromb Time International Ratio 2.7 0.9-1.1 Activated Partial Thromboplast Time 36.4 21.0-31.0 SECONDS Partial Thromboplastin Ratio 1.4 Sodium Level 136 136-145 mmol/L Potassium Level 4.5 3.5-5.1 mmol/L Chloride Level 102 98-107 mmol/L Carbon Dioxide Level 27 21-32 mmol/L Anion Gap 7.0 15.0 16-25 mmol/L Blood Urea Nitrogen 48 7-18 mg/dl Creatinine 3.00 0.60-1.40 mg/dl Est Creatinine Clear Calc Drug Dose 30.3 ml/min Estimated GFR () 24.5 Estimated GFR (Non- 21.1 BUN/Creatinine Ratio 16.0 10-20 Random Glucose 315 70-99 mg/dl Calcium Level 8.5 8.5-10.1 mg/dl Total Bilirubin 0.4 0.2-1 mg/dl Direct Bilirubin 0.2 0-0.2 mg/dl Aspartate Amino Transf (AST/SGOT) 17 15-37 U/L Alanine Aminotransferase (ALT/SGPT) 32 12-78 U/L Alkaline Phosphatase 110 45-117 U/L Total Creatine Kinase 77 39-308 U/L Creatine Kinase MB 2.8 0.5-3.6 ng/ml Creatine Kinase MB Ratio 3.6 0-3.0 Total Protein 6.5 6.4-8.2 gm/dl Albumin 2.7 3.4-5.0 gm/dl Lipase 50 73-393 U/L Beta-Hydroxybutyric Acid 0.57 0.2-2.81 mg/dL Bedside Hemoglobin 9.2 14.0-18.0 g/dl Bedside Hematocrit 27 42-52 % Bedside Sodium 136 135-144 mEq/L Bedside Potassium 4.6 3.3-5.0 mEq/L Bedside Chloride 99 101-112 mEq/L Bedside Total CO2 28 24-31 mEq/l Bedside Blood Urea Nitrogen 48 7-18 mg/dl Bedside Creatinine 2.9 0.6-1.3 mg/dl Bedside Glucose (other) 320 70-99 mg/dl Bedside Ionized Calcium (Pricilla) 1.15 1.12-1.32 mmol/l Bedside Troponin I 0.030 0-0.045 ng/ml Diagnostic Radiology Bilateral venous dopplers: IMPRESSION: There is no sonographic evidence of deep venous thrombosis identified in the right or left lower extremity. CXR: IMPRESSION: Cardiomegaly. No acute findings. EKG Atrial fibrillation with rapid ventricular response with premature ventricular or aberrantly conducted complexes Left axis deviation Left bundle branch block No change from prior EKG Impression Assessment and Plan This is a 62yo M with a PMH of mixed systolic and diastolic HF (EF 35-40%), non- ischemic cardiomyopathy, non-obstructive CAD, left bundle branch block, DM II, A fib (on coumadin), HTN, HLD, asthma/COPD, CKD III and other medical problems listed below who presents with chest pain and SOB beginning this AM. Chest pain: -R/o ACS; risk factors include DM II, HTN, HLD, tobacco use -H/o non-obstructive CAD. Cardiac cath in 07/04 without intervention needed -Pleuritic in nature, possible MSK component as well -Initial troponin negative -EKG-without acute ischemic changes -CXR-stable cardiomegaly -Trend serial cardiac enzymes -Check echo -Repeat EKG in am SOB: -2/2 asthma, COPD -Still recovering from recent flu, PNA -Considered DVT/PE due to elevated d dimer but bilateral venous dopplers are negative and INR is therapeutic on coumadin -O2 saturation stable in 90s on 3L NC -No wheezing noted one exam -Cont home inhalers, nebs Systolic and diastolic HF (EF 35-40%), non-ischemic cardiomyopathy: -BLE edema on exam but CXR without evidence of volume overload -Low Na diet, continue home dose lasix -Consider IV lasix if status changes but conservative in setting of CKD -Cont beta effie, aspirin, isordil, statin, BP meds DM II: uncontrolled -Last a1c 9.5 -BSG of 320 upon arrival -Hold home regimen -Glycemic consult placed -BSG checks AC HS A fib (on coumadin): -EKG with A Fib at 101 bpm -Continue amiodarione -INR therapeutic on coumadin -Cont at home dose -Check EKG, INR in AM CKD III: -Recent PAM on admission in May (Cr 2.86-4) -Cr of 3 today -Still elevated from recent baseline ~2.5 -Avoid nephrotoxic agents when able -Some gentle IVF resuscitation in ED -Follows with Dr. Mcdermott in clinic -Monitor BMP DVT Ppx: Continue coumadin Code status: FULL PCP: Benjamín Dispo: Observation telemetry. Plan to return home once medically stable. Patient seen in collaboration with Dr. Larkin. Please see addendum. Dr. Larkin attending physician addendum I have seen the patient with Janny Middleton and agree with the assessment and plan as above and would like to comment that this patient presents with chest pain that is made worse by shortness of breath and taking deep breaths. It is unclear as why the patient is having exacerbation of symptoms. But will observe the patient for treatment of symptoms with nebulizers and trend troponins. Patient is already anticoagulated on coumadin for atrial fibrillation but heart rate is controlled. D-dimer is positive but no evidence of DVT so unlikely to have failed anticoagulation therapy and have thromboembolism. Patient is somewhat fluid overloaded of lower extremities but not on lung exam or on lung imaging. Will continue home diuretics given CKD. Will re-assess tomorrow whether symptoms persists Advanced Directives Existing Living Will: No Existing Power of Loom Control Chain Builder: No Resuscitation Status VTE Prophylaxis Will order VTE Prophylaxis: Yes
[2017-06-25] MEDS: ISOSORBIDE DINITRATE 10 MG TAB PO SCH (17:58)
[2017-06-25] MEDS ORDERED: INSULIN GLARGINE SOLOSTAR 100 UNITS/ML 3 ML PEN SC ONE (18:00)
[2017-06-25 18:13] VITALS: O2SAT 94
--- NOTE | 2017-06-25 18:36 | DIAGNOSTIC IMAGING REPORT ---
ULTRASOUND BILATERAL LOWER EXTREMITY VENOUS CLINICAL HISTORY: Dizziness. Atypical chest pain. Dizziness. Clinical concern for deep venous thrombosis. COMPARISON STUDY: Bilateral lower extremity venous ultrasound dated 04-05. TECHNIQUE: Real-time, grayscale, and color Doppler sonography of the deep veins of the right and left lower extremity was performed from the inguinal crease to the calf. Compression and augmentation were utilized. FINDINGS: There is no sonographic evidence of deep venous thrombosis identified in the right or left lower extremity. The common femoral, superficial femoral, and popliteal veins are patent and normally compressible bilaterally. The greater saphenous vein and the profunda femoris vein at the junction with the common femoral vein are clear in both legs. The visualized calf veins are patent bilaterally. IMPRESSION: There is no sonographic evidence of deep venous thrombosis identified in the right or left lower extremity. Electronically signed by: Guerrero Hebert M.D. 06/25/2017 6:34 PM Dictated Date/Time: 06/25/2017 6:34 PM
[2017-06-25] MEDS ORDERED: NVLGI/PEN SQ (19:43)
[2017-06-25] MEDS ORDERED: ASPI81TA28 PO (19:43)
[2017-06-25] MEDS ORDERED: CHOL20007 PO (19:43)
[2017-06-25] MEDS ORDERED: NVLGIPEN SQ (19:43)
[2017-06-25] MEDS ORDERED: ROSU40TA PO (19:43)
[2017-06-25] MEDS ORDERED: CRG25 PO (19:43)
[2017-06-25 19:55] VITALS: BP 116/67; PULSE 89; TEMP 36.6; O2SAT 93
[2017-06-25] MEDS: ROSUVASTATIN CALCIUM 20 MG TAB PO SCH (20:30)
[2017-06-25] MEDS: CARVEDILOL 12.5 MG TAB PO SCH (20:31)
[2017-06-25] MEDS: WARFARIN SOD 5 MG TAB PO SCH (20:31)
[2017-06-25] MEDS: GABAPENTIN 600 MG TAB PO SCH (20:31)
[2017-06-25] MEDS: AMIODARONE 200 MG TAB PO SCH (20:32)
--- NOTE | 2017-06-25 20:33 | Pharmacy Progress Note ---
Glycemic: Assessment & Plan Date of Service Jun 25, 2017. Assessment & Plan Item Value Date Time Hemoglobin A1c 9.5 % H 05/27/17 0537 Bedside Glucose 303 mg/dl H 06/25/17 1650 Bedside Glucose (other) 320 mg/dl H 06/25/17 1341 Random Glucose 315 mg/dl H 06/25/17 1335 Reported Home Diabetes Regimen: * Lantus 45 units sq q PM (dose taken last evening) * Novolog 7 units breakfast, 14 units with lunch & dinner * Total insulin = 80 units/day In-patient Diabetes Regimen: * Administered Reg Insulin 10 units IV in ED, also gave Novolog 8 units sq based on correction factor. Novolog 6 units sq given with dinner to cover CHO's consumed. * Basal insulin: Will give home dose Lantus 45 units with dinner today, then resume with bedtime 06/26 * Correctional Insulin: Novolog Correction per scale ACHS & 0200 Goal Range: Low 120 mg/dL - High 160 mg/dL Correction Factor: 20 mg/dL/unit * Prandial insulin: Per carb ratio of 1 unit per 7 grams CHO consumed Pharmacy will continue to monitor patient daily and write orders per [facility] inpatient glycemic control protocol. Thanks. * Please note that the plan above was derived based on current level of insulin resistance and hospital stress. These recommendations are appropriate for inpatient admission only. Plan of care upon discharge will need to be reassessed to avoid potential outpatient hypo/hyperglycemia.
[2017-06-25] MEDS: INSULIN ASPART 100 UNITS/ML 3 ML PEN SC SCH (20:51)
[2017-06-25] MEDS ORDERED: PRVHFAIN INH (21:59)
[2017-06-25 22:59] VITALS: BP 98/56; PULSE 76; TEMP 37; O2SAT 93
[2017-06-26] VITALS (7 sets, daily range): BP systolic 95–121; BP diastolic 62–78; PULSE 76–90; TEMP 36.6–36.9; O2SAT 93–98; Ht 172.7 cm; Wt 111.4 kg
[2017-06-26] MEDS ORDERED: INSULIN ASPART 100 UNITS/ML 3 ML PEN SC SCH ×2 (02:00→17:00)
[2017-06-26 03:01] LABS: HEMATOCRIT 27.9 % (42-52); HEMOGLOBIN 8.6 g/dL (14.0-18.0); MEAN CELL VOLUME 89.7 fL (80-100); MEAN CORPUSCULAR HEMOGLOBIN 27.7 pg (25-34); MEAN CORPUSCULAR HGB CONC 30.8 g/dl (32-36); MEAN PLATELET VOLUME 8.4 fL (7.4-10.4); PLATELET COUNT 215 K/uL (130-400); RED CELL DISTRIBUTION WIDTH CV 16.8 % (11.5-14.5); RED CELL DISTRIBUTION WIDTH SD 55.1 fL (36.4-46.3); WHITE BLOOD COUNT 5.02 K/uL (4.8-10.8)
[2017-06-26 03:10] LABS: INR 2.8 (0.9-1.1)
[2017-06-26 03:25] LABS: BLOOD UREA NITROGEN 52 mg/dl (7-18); CALCIUM 8.4 mg/dl (8.5-10.1); CARBON DIOXIDE 29 mmol/L (21-32); CREATININE 3.28 mg/dl (0.60-1.40); GLUCOSE 103 mg/dl (70-99); POTASSIUM 4.6 mmol/L (3.5-5.1); SODIUM 139 mmol/L (136-145)
[2017-06-26] MEDS: ISOSORBIDE DINITRATE 10 MG TAB PO SCH ×3 (06:32→16:59)
[2017-06-26] MEDS ORDERED: AMLODIPINE BESYLATE 5 MG TAB PO SCH (09:00)
[2017-06-26] MEDS ORDERED: FUROSEMIDE 20 MG TAB PO SCH (09:00)
[2017-06-26] MEDS: PANTOprazole SOD 40 MG TAB PO SCH (09:16)
[2017-06-26] MEDS: AMIODARONE 200 MG TAB PO SCH ×2 (09:17→20:59)
[2017-06-26] MEDS: DULOXETINE HCL 60 MG CAP PO SCH (09:18)
[2017-06-26] MEDS: GABAPENTIN 600 MG TAB PO SCH ×3 (09:18→20:57)
[2017-06-26] MEDS: CARVEDILOL 12.5 MG TAB PO SCH ×2 (09:18→21:36)
[2017-06-26] MEDS: ASPIRIN 81 MG ECTAB PO SCH (09:18)
[2017-06-26] MEDS: INSULIN ASPART 100 UNITS/ML 3 ML PEN SC SCH ×4 (09:20→21:00)
--- NOTE | 2017-06-26 11:26 | Pharmacy Progress Note ---
Pharmacy Glycemic Short Note 2 Date of Service Jun 26, 2017. OUTPATIENT ANTIDIABETIC REGIMEN: * Lantus 45 units sq q PM (dose taken last evening) * Novolog 7 units breakfast, 14 units with lunch & dinner * Total insulin = 80 units/day Test 06/25/17 13:35 06/25/17 16:50 06/25/17 20:51 06/26/17 02:02 Random Glucose 315 mg/dl (70-99) Bedside Glucose 303 mg/dl (70-99) 137 mg/dl (70-99) 55 mg/dl (70-99) Test 06/26/17 02:24 06/26/17 02:46 06/26/17 02:47 06/26/17 07:18 Bedside Glucose 69 mg/dl (70-99) 106 mg/dl (70-99) 127 mg/dl (70-99) Random Glucose 103 mg/dl (70-99) ASSESSMENT: * 62 year old T2DM admitted with CP and hyperglycemia. Pt started on home dose of Lantus yesterday and received CF and CR and 10 units IV regular insulin in ED * Pt with hypoglycemia last night, will decrease Lantus dose, as pt only required about 20 units of Lantus/day last admission in May. PLAN FOR INPATIENT GLYCEMIC CONTROL: * Basal insulin * Lantus SQ HS based on BSG * BSG < 110mg/dl - 10 units * BSG 110-180mg/dl - 15 units * BSG > 180mg/dl - 20 units * Bolus insulin * NovoLog per scale ACHS or Q6hrs while NPO * Goal Range: Low 110 mg/dL - High 140 mg/dL * Correction Factor: 20 mg/dL/unit * Nutritional / Prandial insulin per carb ratio of 1 unit per 7 grams CHO consumed PLAN FOR DISCHARGE: * A1c 9.5% on 05/27/17 - above goal, recommend titrating insulin doses per outpatient provider.
--- NOTE | 2017-06-26 11:31 | ECHOCARDIOGRAM REPORT ---
*NOTICE TO RECEIVING CONSTITUTION PARTY AGENCY This information is strictly Confidential and protected under [place] law. [place] law prohibits you from making any further disclosure of this information unless further disclosure is expressly permitted by the written consent of the person to whom it pertains or is authorized by law. A general authorization for the release of medical or other information is not sufficient for this purpose. Hospital accepts no responsibility if the information is made available to any other person, INCLUDING THE PATIENT. Interpretation Summary * Name: NIRANJAN VILLALTA Study Date: 06/26/2017 07:36 AM BP: 114/78 mmHg * Patient Location: .MED\S\N275\S\2 HR: 87 * : 1955 (M/d/yyyy) Gender: Male Height: 68 in * Age: 62 yrs Ethnicity: CA Weight: 242 lb * Ordering Physician: Janny Middleton * Referring Physician: Self, Referred * Performed By: Han Long RCS * * Reason For Study: Chest Pain * BSA: 2.2 m2 * -- Conclusions -- * The left ventricle is normal in size. * Septal motion is consistent with conduction abnormality. * Left ventricular systolic function is moderately reduced. * Ejection Fraction = 35-40%. * The right ventricular systolic function is normal. * The left atrium is moderately dilated. * The right atrium is moderately dilated. * The aortic valve is sclerotic. * Moderate aortic stenosis. * There is mild mitral regurgitation. Procedure Details * A complete two-dimensional transthoracic echocardiogram was performed (2D, M-mode, Doppler and color flow Doppler). Left Ventricle * The left ventricle is normal in size. * There is normal left ventricular wall thickness. * Ejection Fraction = 35-40%. * Left ventricular systolic function is moderately reduced. * Septal motion is consistent with conduction abnormality. Right Ventricle * The right ventricle is normal size. * The right ventricular systolic function is normal. Atria * The left atrium is moderately dilated. * The right atrium is moderately dilated. * The interatrial septum is intact with no evidence for an atrial septal defect. Mitral Valve * The mitral valve anatomy is normal. * There is mild mitral regurgitation. Tricuspid Valve * The tricuspid valve anatomy is normal. * Significant tricuspid regurgitation is absent. Aortic Valve * The aortic valve is sclerotic. * Moderate aortic stenosis. * There is no significant aortic regurgitation. Pulmonic Valve * The pulmonic valve is not well seen, but is grossly normal. * There is no significant pulmonary regurgitation. Great Vessels * The aortic root and proximal ascending aorta are normal sized. Pericardium/Pleural * There is no pericardial effusion. MMode 2D Measurements and Calculations IVSd 1.2 cm IVSs 1.6 cm LVIDd 6.2 cm LVIDs 5.1 cm LVPWd 1.1 cm LVPWs 1.5 cm IVS/LVPW 1.1 FS 17.2 % EDV(Teich) 194.0 ml ESV(Teich) 125.8 ml EF(Teich) 35.1 % EDV(cubed) 238.4 ml ESV(cubed) 135.5 ml EF(cubed) 43.2 % % IVS thick 31.9 % % LVPW thick 31.7 % LV mass(C)d 326.8 grams LV mass(C)dI 147.4 grams/m\S\2 LV mass(C)s 357.6 grams LV mass(C)sI 161.4 grams/m\S\2 SV(Teich) 68.2 ml SI(Teich) 30.8 ml/m\S\2 SV(cubed) 102.9 ml SI(cubed) 46.4 ml/m\S\2 Ao root diam 4.1 cm Ao root area 13.4 cm\S\2 LA dimension 4.6 cm asc Aorta Diam 3.9 cm LA/Ao 1.1 LVOT diam 2.5 cm LVOT area 5.0 cm\S\2 EDV(MOD-sp4) 147.0 ml ESV(MOD-sp4) 92.0 ml EF(MOD-sp4) 37.4 % EDV(MOD-sp2) 191.0 ml ESV(MOD-sp2) 112.0 ml EF(MOD-sp2) 41.4 % SV(MOD-sp4) 55.0 ml SI(MOD-sp4) 24.8 ml/m\S\2 SV(MOD-sp2) 79.0 ml SI(MOD-sp2) 35.6 ml/m\S\2 Doppler Measurements and Calculations MV E max bryan 110.5 cm/sec MV P1/2t max bryan 134.6 cm/sec MV P1/2t 136.9 msec MVA(P1/2t) 1.6 cm\S\2 MV dec slope 288.0 cm/sec\S\2 MV dec time 0.21 sec Ao V2 max 271.8 cm/sec Ao max PG 29.5 mmHg Ao max PG (full) 27.0 mmHg Ao V2 mean 170.0 cm/sec Ao mean PG 13.9 mmHg Ao mean PG (full) 12.7 mmHg Ao V2 VTI 52.0 cm IAN(I,A) 1.7 cm\S\2 IAN(I,D) 1.7 cm\S\2 IAN(V,A) 1.5 cm\S\2 IAN(V,D) 1.5 cm\S\2 AI max bryan 357.2 cm/sec AI max PG 51.0 mmHg AI dec slope 280.7 cm/sec\S\2 AI P1/2t 372.6 msec LV V1 max PG 2.6 mmHg LV V1 mean PG 1.3 mmHg LV V1 max 79.9 cm/sec LV V1 mean 51.1 cm/sec LV V1 VTI 17.3 cm SV(Ao) 696.1 ml SI(Ao) 314.1 ml/m\S\2 SV(LVOT) 86.1 ml SI(LVOT) 38.8 ml/m\S\2 PA V2 max 81.8 cm/sec PA max PG 2.7 mmHg TR max bryan 226.5 cm/sec
--- NOTE | 2017-06-26 12:14 | Cardiology Consultation ---
Cardiology Consultation Date of Consultation: Jun 26, 2017 Requesting Physician: Trae Attending Fortune Cookie Maker: Yudith (Billy Chery PA-C) History of Present Illness Mr. Willis Delarosa is a complex 62-year-old male who is being seen at the request of Dr. waldron. Reason for consultation is cardiac evaluation. The patient has had multiple recent hospitalizations. He was hospitalized in early March 2017 with atypical chest discomfort, uncontrolled hypertension and acute on chronic renal insufficiency. The hypertensive urgency was treated with amlodipine 10 mg per day. Nocturnal hypoxemia was observed for which she was prescribed supplemental oxygen therapy. Resting echocardiography on March 21, 2017 revealed moderate reduction in left ventricular systolic function with an EF of 35-40%. There was moderate concentric left ventricular hypertrophy. The aortic valve was described as moderately calcified with moderate stenosis and trace insufficiency. The patient was then seen in the ER for shortness of breath on April 17, 2017, subsequently admitted March to April 19, 2017 due to shortness of breath which was felt to be multifactorial in etiology. Cardiology was not involved in his care at that time. Medications on discharge included titration of furosemide from 20 mg twice a week to daily. The patient was admitted on May 23, 2017 to June 10, 2017 with what appears to be a markedly complex hospital course. Patient was noted to have acute influenza A, bilateral pneumonia, superimposed acute systolic congestive heart failure, acute kidney injury requiring transient dialysis. New-onset atrial fibrillation was observed at that time. Course complicated by left-sided retroperitoneal hematoma secondary to femoral dialysis catheter placement and anticoagulation, requiring 2 units of packed red blood cells. Multiple medication changes were made on discharge included the initiation of amiodarone 200 mg twice per day, hydralazine 12.5 mg 3 times per day, and warfarin anticoagulation. Tentative plans at that time were to load amiodarone, allow for proper anticoagulation, consider eventual direct current cardioversion. Mr. Delarosa states that he presented to the hospital due to recurrent shortness of breath. He notes coming in multiple times and "getting fixed" only to return home to develop recurrent symptoms. He describes breathing hard, huffing and puffing all the time. He states that he just can't catch his breath. He states that he cannot go to the grocery store with his . He cannot ambulate 50 feet without having to stop and rest. He notes chest pain with deep breathing or "breathing hard." He notes right greater than left lower extremity edema "especially if I have any salt." Denies orthopnea, PND, abdominal bloating, or scrotal/penile edema. No overt palpitations. No dizziness, near syncope, or syncope. (Billy Chery PA-C) Past Medical/Surgical History Problem List: Nonischemic cardiomyopathy Moderate reduction in left ventricular systolic function. History of extensive hypertension and hypertensive urgency status post adrenalectomy. Moderate Aortic stenosis. Mild coronary atherosclerosis by cardiac catheterization 07/02/2016. Chronic left bundle branch block Chronic renal insufficiency Chart history of asthma and COPD Dyslipidemia Type 2 diabetes mellitus Pancreatic cyst Vitamin D deficiency Cervical and lumbar spine injection (Billy Chery PA-C) Family History Diabetes mellitus SISTER BROTHER FH: CHF (congestive heart failure) MOTHER Hypertension SON Mother with CHF at 57. Father with an AL at 70 or 71. Nine siblings. One brother with unknown cancer. One brother with emphysema. (Billy Chery PA-C) Diabetes mellitus SISTER BROTHER FH: CHF (congestive heart failure) MOTHER Hypertension SON (Christian ZuritaJamison, ) Social History Nonsmoker. He chews about one can of snuff per day. Social alcohol. No illegal drug use. x 35 years. Resides in [place], [place]. 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 No current fever or chills. HEENT: No headache. No recent head trauma. Cardiovascular: See above. No near syncope or syncope Pulmonary: + Cough. + Wheeze. SOB. TESFAYE. Excessive snoring.? pleurisy. No hemoptysis. Gastrointestinal: No nausea, vomiting, or diarrhea. Skin: No rash. Musculoskeletal: Joint pain, back pain. Neurological: No history of TIA, CVA, or seizures. Complete review of systems is as stated above, negative, or noncontributory. (Billy Chery PA-C) Allergies Coded Allergies: No Known Allergies (Verified , 05/23/17) Medications Reported Home Medications Medications Dose Route/Sig Max Daily Dose Days Date Category Dose Instructions Lantus Solostar (Insulin Glargine) 100 Unit/Ml Inj 45 Units SQ PM 06/25/17 Reported Neurontin (Gabapentin) 300 Mg Cap 600 Mg PO TID 06/25/17 Reported Duoneb (Ipratropium-Albuterol) 3 Ml Nebu 1 Treatment INH QID PRN 06/25/17 Reported Isordil (Isosorbide Dinitrate) 10 Mg Tab 20 Mg PO TID 06/25/17 Reported Coumadin (Warfarin Sodium) 5 Mg Tab 5 Mg PO DAILY 06/25/17 Reported Cordarone (Amiodarone Hcl) 200 Mg Tab 200 Mg PO BID 06/25/17 Reported Hydralazine HCl 25 Mg Tab 12.5 Mg PO BID 06/25/17 Reported Lasix (Furosemide) 20 Mg Tab 20 Mg PO QAM 05/23/17 Reported Norvasc (Amlodipine Besylate) 10 Mg Tab 10 Mg PO DAILY 05/23/17 Reported Breo Ellipta (Fluticasone Furoate-Vilanterol) 1 Inh Inh 1 Puff PO DAILY 04/23/17 Reported Cymbalta (Duloxetine Hcl) 60 Mg Cap 60 Mg PO DAILY 04/23/17 Reported Protonix (Pantoprazole Sodium) 40 Mg Tab 40 Mg PO QAM 11/17/16 Reported Ventolin Hfa (Albuterol) 60 Puffs/5400 Mcg Aers 2 Puffs INH Q4H PRN 06/19/16 Reported Aspirin Ec (Aspirin) 81 Mg Tab 81 Mg PO QAM 06/19/16 Reported Vitamin D3 (Cholecalciferol) 2,000 Unit Tab 2,000 Inter.unit PO QAM 06/19/16 Reported Carvedilol 25 Mg Tab 12.5 Mg PO BID 06/19/16 Reported Crestor (Rosuvastatin Calcium) 40 Mg Tab 40 Mg PO HS 06/19/16 Reported Novolog Flexpen (Insulin Aspart) 100 Units/Ml Inj 14 Units SQ UD 06/19/16 Reported with lunch and dinner Novolog Flexpen (Insulin Aspart) 100 Units/Ml Inj 7 Units SQ QAM 06/19/16 Reported (Billy Chery PA-C) Physical Exam Vital Signs (Last 8hrs): Last 8 Hrs Date Time Temp Pulse Resp B/P (MAP) Pulse Ox O2 Delivery O2 Flow Rate FiO2 06/26/17 08:50 Nasal Cannula 2.0 06/26/17 07:07 36.9 81 18 114/78 (90) 97 2.0 06/26/17 06:33 80 98/62 (74) 06/26/17 04:01 Nasal Cannula 2.0 06/26/17 03:25 36.7 76 18 95/63 (74) 97 Nasal Cannula 2.0 General Appearance: Alert and Oriented x3. NAD. Mildly tachypneic. HEENT: Normocephalic Atraumatic. PER, EOMI, conjunctiva and sclera pale. Neck: No overt JVD. No HJD. Respiratory: Diminished. Decreased throughout. No wheeze. Cardiovascular: Irregularly irregular in the 80's. Grade II/ systolic murmur. + Gallop. PMI is displaced. No diastolic murmurs. No rubs. Abdomen: Obese. +BS. No abdominal bruits. Soft. Nontender. Extremities: Minimal right greater than left lower extremity edema. No clubbing. No cyanosis. Distal pulses 1-2/4 bilaterally. Neuro: No focal deficits. Psychiatric: Normal affect. (Billy Chery, ZAY) Data Last 24 Hours Test 06/25/17 13:35 06/25/17 13:41 06/25/17 13:42 06/25/17 15:51 White Blood Count 4.51 K/uL Red Blood Count 3.22 M/uL Hemoglobin 9.1 g/dL Hematocrit 28.2 % Mean Corpuscular Volume 87.6 fL Mean Corpuscular Hemoglobin 28.3 pg Mean Corpuscular Hemoglobin Concent 32.3 g/dl Platelet Count 241 K/uL Mean Platelet Volume 8.4 fL Neutrophils (%) (Auto) 76.5 % Lymphocytes (%) (Auto) 12.4 % Monocytes (%) (Auto) 8.9 % Eosinophils (%) (Auto) 1.1 % Basophils (%) (Auto) 0.2 % Neutrophils # (Auto) 3.45 K/uL Lymphocytes # (Auto) 0.56 K/uL Monocytes # (Auto) 0.40 K/uL Eosinophils # (Auto) 0.05 K/uL Basophils # (Auto) 0.01 K/uL RDW Standard Deviation 53.5 fL RDW Coefficient of Variation 16.7 % Immature Granulocyte % (Auto) 0.9 % Immature Granulocyte # (Auto) 0.04 K/uL Prothrombin Time 27.3 SECONDS Prothromb Time International Ratio 2.7 Activated Partial Thromboplast Time 36.4 SECONDS Partial Thromboplastin Ratio 1.4 Sodium Level 136 mmol/L Potassium Level 4.5 mmol/L Chloride Level 102 mmol/L Carbon Dioxide Level 27 mmol/L Anion Gap 7.0 mmol/L 15.0 mmol/L Blood Urea Nitrogen 48 mg/dl Creatinine 3.00 mg/dl Est Creatinine Clear Calc Drug Dose 30.3 ml/min Estimated GFR () 24.5 Estimated GFR (Non- 21.1 BUN/Creatinine Ratio 16.0 Random Glucose 315 mg/dl Calcium Level 8.5 mg/dl Total Bilirubin 0.4 mg/dl Direct Bilirubin 0.2 mg/dl Aspartate Amino Transf (AST/SGOT) 17 U/L Alanine Aminotransferase (ALT/SGPT) 32 U/L Alkaline Phosphatase 110 U/L Total Creatine Kinase 77 U/L Creatine Kinase MB 2.8 ng/ml Creatine Kinase MB Ratio 3.6 Pro-B-Type Natriuretic Peptide 5122 pg/ml Total Protein 6.5 gm/dl Albumin 2.7 gm/dl Lipase 50 U/L Beta-Hydroxybutyric Acid 0.57 mg/dL Bedside Hemoglobin 9.2 g/dl Bedside Hematocrit 27 % Bedside Sodium 136 mEq/L Bedside Potassium 4.6 mEq/L Bedside Chloride 99 mEq/L Bedside Total CO2 28 mEq/l Bedside Blood Urea Nitrogen 48 mg/dl Bedside Creatinine 2.9 mg/dl Bedside Glucose (other) 320 mg/dl Bedside Ionized Calcium (P[place]illa) 1.15 mmol/l Bedside Troponin I 0.030 ng/ml Troponin I < 0.015 ng/ml Test 06/25/17 16:50 06/25/17 16:57 06/25/17 20:51 06/25/17 21:06 Bedside Glucose 303 mg/dl 137 mg/dl D-Dimer 760 ug/L FEU Troponin I < 0.015 ng/ml Test 06/26/17 02:02 06/26/17 02:24 06/26/17 02:46 06/26/17 02:47 Bedside Glucose 55 mg/dl 69 mg/dl 106 mg/dl White Blood Count 5.02 K/uL Red Blood Count 3.11 M/uL Hemoglobin 8.6 g/dL Hematocrit 27.9 % Mean Corpuscular Volume 89.7 fL Mean Corpuscular Hemoglobin 27.7 pg Mean Corpuscular Hemoglobin Concent 30.8 g/dl RDW Standard Deviation 55.1 fL RDW Coefficient of Variation 16.8 % Platelet Count 215 K/uL Mean Platelet Volume 8.4 fL Prothrombin Time 28.6 SECONDS Prothromb Time International Ratio 2.8 Sodium Level 139 mmol/L Potassium Level 4.6 mmol/L Chloride Level 106 mmol/L Carbon Dioxide Level 29 mmol/L Anion Gap 4.0 mmol/L Blood Urea Nitrogen 52 mg/dl Creatinine 3.28 mg/dl Est Creatinine Clear Calc Drug Dose 27.7 ml/min Estimated GFR () 22.0 Estimated GFR (Non- 19.0 BUN/Creatinine Ratio 15.9 Random Glucose 103 mg/dl Calcium Level 8.4 mg/dl Troponin I < 0.015 ng/ml Test 06/26/17 07:18 Bedside Glucose 127 mg/dl June 2016 diagnostic cardiac catheterization performed by Dr. Zurita at [facility] revealed mild nonobstructive coronary artery disease. Specific angiography was right dominant. The right PL branch had a 20% ostial stenosis. Left main was described as normal. The LAD was described as normal. The second obtuse marginal branch was noted to have an ostial 50% stenosis. EF 30% on LV gram. Chest x-ray: Cardiomegaly. No acute findings. Venous duplex: No evidence of DVT in either lower extremity. EKG on presentation demonstrated atrial fibrillation with a rapid ventricular response with premature ventricular or aberrantly conducted complexes. Left axis deviation. Chronic left bundle branch block. Ventricular rate 101 bpm. EKG this morning reveals atrial fibrillation at 90 bpm with premature ventricular or aberrantly conducted complexes. Left axis deviation. Left bundle branch block. Telemetry: Atrial fibrillation around 100 bpm. Occasional PVCs in singles, couplets. No periods of sinus. June 26, 2017 TTE Interpretation Summary ([facility], Dr. Zurita): The left ventricle is normal in size. Septal motion is consistent with conduction abnormality. Left ventricular systolic function is moderately reduced. Ejection Fraction = 35 -40%. The right ventricular systolic function is normal. The left atrium is moderately dilated. The right atrium is moderately dilated. The aortic valve is sclerotic. Moderate aortic stenosis. There is mild mitral regurgitation (Miri,Billy, PA-C) Assessment & Plan Admission with multifactorial dyspnea Nonischemic cardiomyopathy NYHA Functional Class III Dyspnea Chronic left bundle branch block with QRS duration greater than 150 ms. Left ventricular ejection fraction ~35% Normovolemic. Atrial fibrillation. Appear to be new onset in May 2017 This is likely contributing to his respiratory symptoms. Rates are currently adequately controlled though were elevated on presentation Patient prescribed Coumadin anticoagulation however his INR was 1.9 on 2017 Moderate aortic stenosis. History of extensive hypertension and hypertensive urgency status post adrenalectomy. Currently hypotension Mild coronary atherosclerosis by cardiac catheterization 07/02/2016. Chronic renal insufficiency Asthma and COPD RECOMMENDATIONS: Discontinue Carvedilol Start Toprol XL 50 mg/day Decrease amlodipine from 10 mg/day to 5 mg/day Increase Hydralazine for additional blood pressure control Continue oral nitrates No ACEI/ARB/Entresto secondary to renal dysfunction ? LIZZIE +/- direct current cardioversion Thursday Maintain telemetry Maintain INR greater than 2.0 If EF does not improve with optimal medications and sabianism of sinus would refer for BiV ICD consideration. (Billy Chery PA-C) CARDIOLOGY ATTENDING ADDENDUM: The patient was seen and personally examined. Agree with Billy Chery PA-C's findings and plans as documented above. This patient has been sick for a while. It may not be totally cardiac in origin. He has chronic kidney disease which may be hampering his clearance of fluids. If nephrology is not on the case then I would ask them to see him. He cannot remember when his last heart catheterization took place. We should consider possibly repeating ischemic workup with a repeat cardiac catheterization. We also should consider cardioversion as the newly discovered atrial fibrillation may be contributing to his symptoms. (Christian Zurita, DO)
[2017-06-26] MEDS: WARFARIN SOD 5 MG TAB PO SCH (14:58)
--- NOTE | 2017-06-26 17:06 | Nephrology Consultation ---
Nephrology Consultation Date of Consultation: Jun 26, 2017. Attending Physician: Dr Larkin Requesting Physician: Dr Larkin Reason for Consultation: exertional dyspnea, CKD History of Present Illness 62 year old male admitted yesterday for evaluation of worsening exertional dyspnea and chest pain whom I'm asked to follow for advanced ckd. He was admitted here from 05/23-06/10 w/ acute on chronic respiratory failure, PAM on CKD , retroperitoneal hemorrhage (complication of line placement): creatinine at d/ c was 2.9. On presentation yesterday, creatinine was 3.0; 3.1 today. His most recent creatinine was 3.1 w/ K 4.9 and hgb 8.2 on 06/17. He presented yesterday w/ ongoing weakness, ambulatory dysfunction and waking from sleep evening before admission with sob and L sided chest pain/pressure. He remains somewhat dyspneic, gris w/ exertion such as walking 2 laps around unit. Cardiology is following: TTE this admission not much changed from prior. Ongoing hypotension and A fib > LIZZIE/ direct current cardioversion under consideration for 06/29. Repeat cardiac cath is also under consideration. Past Medical/Surgical History Medical Problems: (1) CHF (congestive heart failure) Status: Acute (2) CHF (congestive heart failure) Status: Acute (3) Diffuse abdominal pain Status: Acute (4) Elevated troponin Status: Acute (5) Precordial chest pain Status: Acute (6) Renal cyst Status: Acute (7) Shortness of breath Status: Acute (8) Shortness of breath Status: Acute -[facility] admission 05/23-06/01 for L retroperitoneal / iliopsoas hemorrhage, altered MS, influenza B, acute hypoxic respiratory failure, new onset A fib d/c newly on coumadin, amiodarone; pulmonary nodules also noted on chest CT -nonischemic [employer], EF 40% 03/2017 -nonocclusive CAD -aortic stenosis -LBBB -COPD -active tobacco abuse -CKD 4 baseline creatinine 2 -HTN -DM2 on insulin -s/p adrenalectomy remotely -chronic thrombocytopenia -rafael on CPAP as of 05/2017 admission Family History Diabetes mellitus SISTER BROTHER FH: CHF (congestive heart failure) MOTHER Hypertension SON Social History Smoking Status: Never Smoker Drug Use: none Marital Status: Housing Status: lives with significant other Occupation Status: retired Allergies Coded Allergies: No Known Allergies (Verified , 05/23/17) Medications Current Inpatient Medications Medications (Trade) Dose Ordered Sig/Larry Route Start Time Stop Time Status Last Admin Dose Admin Miscellaneous Information (Consult Glycemic Management Pharmacy) 1 ea UD PRN N/A 06/25/17 16:00 07/25/17 15:59 Insulin Aspart (novoLOG ASPART) SLIDING SCALE If C... ACHS SC 06/25/17 21:00 07/25/17 20:59 06/26/17 09:20 8 UNITS Glucose (Glucose 40% Gel) 15-30 GRAMS 15 GRAMS... UD PRN PO 06/25/17 16:00 07/25/17 15:59 Glucose (Glucose Chew Tab) 4-8 Tablets 4 Tabl... UD PRN PO 06/25/17 16:00 07/25/17 15:59 Dextrose (Dextrose 50% 50ML Syringe) 25-50ML OF 50% DW IV FOR... UD PRN IV 06/25/17 16:00 07/25/17 15:59 Glucagon (Glucagon Inj) 1 mg UD PRN SQ 06/25/17 16:00 07/25/17 15:59 Acetaminophen (Tylenol Tab) 650 mg Q4H PRN PO 06/25/17 16:00 07/25/17 15:59 Al Hydrox/Mg Hydrox/Simethicone (Maalox Max Susp) 15 ml Q4H PRN PO 06/25/17 16:00 07/25/17 15:59 Magnesium Hydroxide (Milk Of Magnesia Susp) 30 ml Q12H PRN PO 06/25/17 16:00 07/25/17 15:59 Miscellaneous (Iv Fluids Completed) 1 ea PRN PRN N/A 06/25/17 16:15 06/25/18 16:14 Albuterol (Ventolin Hfa Inhaler) 2 puffs Q4H PRN INH 06/25/17 16:15 07/25/17 16:14 Amiodarone HCl (Cordarone Tab) 200 mg BID PO 06/25/17 21:00 07/25/17 20:59 06/26/17 09:17 200 MG Amlodipine Besylate (Norvasc Tab) 10 mg DAILY PO 06/26/17 09:00 07/26/17 08:59 06/26/17 09:17 10 MG Aspirin (Ecotrin Tab) 81 mg QAM PO 06/26/17 09:00 07/26/17 08:59 06/26/17 09:18 81 MG Carvedilol (Coreg Tab) 12.5 mg BID PO 06/25/17 21:00 07/25/17 20:59 06/26/17 09:18 12.5 MG Duloxetine HCl (Cymbalta Cap) 60 mg DAILY PO 06/26/17 09:00 07/26/17 08:59 06/26/17 09:18 60 MG Gabapentin (Neurontin Tab) 600 mg TID PO 06/25/17 21:00 07/25/17 20:59 06/26/17 09:18 600 MG Hydralazine HCl (Apresoline Tab) 12.5 mg BID PO 06/25/17 21:00 07/25/17 20:59 06/26/17 09:18 12.5 MG Albuterol/ Ipratropium (Duoneb) 3 ml QID PRN INH 06/25/17 16:15 07/25/17 16:14 Isosorbide Dinitrate (Isordil Tab) 20 mg TID@0700,1200,1700 PO 06/25/17 17:00 07/25/17 16:59 06/25/17 17:58 20 MG Pantoprazole Sodium (Protonix Tab) 40 mg QAM PO 06/26/17 09:00 07/26/17 08:59 06/26/17 09:16 40 MG Rosuvastatin Calcium (Crestor Tab) 40 mg HS PO 06/25/17 21:00 07/25/17 20:59 06/25/17 20:30 40 MG Warfarin Sodium (Coumadin Tab) 5 mg DAILY@1600 PO 06/25/17 20:00 07/25/17 19:59 06/25/17 20:31 5 MG Miscellaneous Information (Order Awaiting Action) 1 ea QS N/A 06/26/17 00:00 07/26/17 00:00 Furosemide (Lasix Tab) 20 mg QAM PO 06/26/17 09:00 07/26/17 08:59 06/26/17 09:16 20 MG Insulin Glargine (Lantus Solostar Pen) 45 units HS SC 06/26/17 21:00 07/26/17 20:59 Insulin Aspart (novoLOG ASPART) SLIDING SCALE If C... 0200 TN 06/26/17 02:00 07/26/17 01:59 Home Meds and Scripts Medications Dose Route/Sig Max Daily Dose Days Date Category Dose Instructions Lantus Solostar (Insulin Glargine) 100 Unit/Ml Inj 45 Units SQ PM 06/25/17 Reported Neurontin (Gabapentin) 300 Mg Cap 600 Mg PO TID 06/25/17 Reported Duoneb (Ipratropium-Albuterol) 3 Ml Nebu 1 Treatment INH QID PRN 06/25/17 Reported Isordil (Isosorbide Dinitrate) 10 Mg Tab 20 Mg PO TID 06/25/17 Reported Coumadin (Warfarin Sodium) 5 Mg Tab 5 Mg PO DAILY 06/25/17 Reported Cordarone (Amiodarone Hcl) 200 Mg Tab 200 Mg PO BID 06/25/17 Reported Hydralazine HCl 25 Mg Tab 12.5 Mg PO BID 06/25/17 Reported Lasix (Furosemide) 20 Mg Tab 20 Mg PO QAM 05/23/17 Reported Norvasc (Amlodipine Besylate) 10 Mg Tab 10 Mg PO DAILY 05/23/17 Reported Breo Ellipta (Fluticasone Furoate-Vilanterol) 1 Inh Inh 1 Puff PO DAILY 04/23/17 Reported Cymbalta (Duloxetine Hcl) 60 Mg Cap 60 Mg PO DAILY 04/23/17 Reported Protonix (Pantoprazole Sodium) 40 Mg Tab 40 Mg PO QAM 11/17/16 Reported Ventolin Hfa (Albuterol) 60 Puffs/5400 Mcg Aers 2 Puffs INH Q4H PRN 06/19/16 Reported Aspirin Ec (Aspirin) 81 Mg Tab 81 Mg PO QAM 06/19/16 Reported Vitamin D3 (Cholecalciferol) 2,000 Unit Tab 2,000 Inter.unit PO QAM 06/19/16 Reported Carvedilol 25 Mg Tab 12.5 Mg PO BID 06/19/16 Reported Crestor (Rosuvastatin Calcium) 40 Mg Tab 40 Mg PO HS 06/19/16 Reported Novolog Flexpen (Insulin Aspart) 100 Units/Ml Inj 14 Units SQ UD 06/19/16 Reported with lunch and dinner Novolog Flexpen (Insulin Aspart) 100 Units/Ml Inj 7 Units SQ QAM 06/19/16 Reported Review of Systems Constitutional: + weakness, + fatigue, No fever, No weight loss Eyes: No worsening of vision ENT: No hearing loss Respiratory: + cough (occasional), + shortness of breath, + dyspnea on exertion , + dyspnea at rest, No wheezing Cardiac: + edema, No chest pain, No PND, No palpitations Abdomen: No pain, No nausea, No vomiting, No diarrhea, No constipation Musculoskeletal: No joint pain, No muscle pain Male : No dysuria, No incontinence, No hematuria Neuro: + weakness, No memory loss, No balance problems Psych: No depression symptoms, No anxiety Heme: No abnormal bleeding/bruising Endo: + fatigue Skin: No rash Physical Exam Date Time Temp Pulse Resp B/P (MAP) Pulse Ox O2 Delivery O2 Flow Rate FiO2 06/26/17 11:21 36.8 80 18 121/75 (90) 98 2.0 06/26/17 08:50 Nasal Cannula 2.0 06/26/17 07:07 36.9 81 18 114/78 (90) 97 2.0 06/26/17 06:33 80 98/62 (74) 06/26/17 04:01 Nasal Cannula 2.0 06/26/17 03:25 36.7 76 18 95/63 (74) 97 Nasal Cannula 2.0 06/26/17 00:01 Nasal Cannula 2.0 06/25/17 22:59 37.0 76 18 98/56 (70) 93 Nasal Cannula 2.0 06/25/17 20:00 Nasal Cannula 2.0 06/25/17 19:55 36.6 89 20 116/67 (83) 93 Room Air 06/25/17 18:13 94 Room Air 06/25/17 16:54 36.5 90 116/78 (91) 93 Nasal Cannula 3.0 06/25/17 16:29 88 20 103/68 96 Room Air 3.0 06/25/17 15:58 83 20 94/79 93 Nasal Cannula 3.0 06/25/17 15:00 84 20 117/83 96 Nasal Cannula 3.0 06/25/17 14:52 96 Nasal Cannula 2.0 06/25/17 14:18 85 06/25/17 13:53 96 Nasal Cannula 2.0 06/25/17 13:50 96 Nasal Cannula 4.0 06/25/17 13:50 96 Nasal Cannula 4.0 06/25/17 13:25 36.3 92 24 101/72 88 Room Air General Appearance: WD/WN, + mild distress (very slightly dyspeic w/ speech), + obese, + pertinent finding (on 02NC) Eyes: EOMI ENT: hearing grossly normal Neck: supple Respiratory/Chest: no respiratory distress (but very slightly sob w/ conversation), no accessory muscle use, + decreased breath sounds, + crackles, + wheezing (exp) Cardiovascular: + irregularly irregular, + pertinent finding (1+ edema ble) Abdomen: normal bowel sounds, non tender, soft Extremities: + pedal edema, + swelling Neurologic/Psych: alert, normal mood/affect, oriented x 3 Skin: no jaundice, warm/dry, no rash, + pallor Diagnostics Last 24 Hours Test 06/25/17 13:35 06/25/17 13:41 06/25/17 13:42 06/25/17 15:51 White Blood Count 4.51 K/uL Red Blood Count 3.22 M/uL Hemoglobin 9.1 g/dL Hematocrit 28.2 % Mean Corpuscular Volume 87.6 fL Mean Corpuscular Hemoglobin 28.3 pg Mean Corpuscular Hemoglobin Concent 32.3 g/dl Platelet Count 241 K/uL Mean Platelet Volume 8.4 fL Neutrophils (%) (Auto) 76.5 % Lymphocytes (%) (Auto) 12.4 % Monocytes (%) (Auto) 8.9 % Eosinophils (%) (Auto) 1.1 % Basophils (%) (Auto) 0.2 % Neutrophils # (Auto) 3.45 K/uL Lymphocytes # (Auto) 0.56 K/uL Monocytes # (Auto) 0.40 K/uL Eosinophils # (Auto) 0.05 K/uL Basophils # (Auto) 0.01 K/uL RDW Standard Deviation 53.5 fL RDW Coefficient of Variation 16.7 % Immature Granulocyte % (Auto) 0.9 % Immature Granulocyte # (Auto) 0.04 K/uL Prothrombin Time 27.3 SECONDS Prothromb Time International Ratio 2.7 Activated Partial Thromboplast Time 36.4 SECONDS Partial Thromboplastin Ratio 1.4 Sodium Level 136 mmol/L Potassium Level 4.5 mmol/L Chloride Level 102 mmol/L Carbon Dioxide Level 27 mmol/L Anion Gap 7.0 mmol/L 15.0 mmol/L Blood Urea Nitrogen 48 mg/dl Creatinine 3.00 mg/dl Est Creatinine Clear Calc Drug Dose 30.3 ml/min Estimated GFR () 24.5 Estimated GFR (Non- 21.1 BUN/Creatinine Ratio 16.0 Random Glucose 315 mg/dl Calcium Level 8.5 mg/dl Total Bilirubin 0.4 mg/dl Direct Bilirubin 0.2 mg/dl Aspartate Amino Transf (AST/SGOT) 17 U/L Alanine Aminotransferase (ALT/SGPT) 32 U/L Alkaline Phosphatase 110 U/L Total Creatine Kinase 77 U/L Creatine Kinase MB 2.8 ng/ml Creatine Kinase MB Ratio 3.6 Pro-B-Type Natriuretic Peptide 5122 pg/ml Total Protein 6.5 gm/dl Albumin 2.7 gm/dl Lipase 50 U/L Beta-Hydroxybutyric Acid 0.57 mg/dL Bedside Hemoglobin 9.2 g/dl Bedside Hematocrit 27 % Bedside Sodium 136 mEq/L Bedside Potassium 4.6 mEq/L Bedside Chloride 99 mEq/L Bedside Total CO2 28 mEq/l Bedside Blood Urea Nitrogen 48 mg/dl Bedside Creatinine 2.9 mg/dl Bedside Glucose (other) 320 mg/dl Bedside Ionized Calcium (Pricilla) 1.15 mmol/l Bedside Troponin I 0.030 ng/ml Troponin I < 0.015 ng/ml Test 06/25/17 16:50 06/25/17 16:57 06/25/17 20:51 06/25/17 21:06 Bedside Glucose 303 mg/dl 137 mg/dl D-Dimer 760 ug/L FEU Troponin I < 0.015 ng/ml Test 06/26/17 02:02 06/26/17 02:24 06/26/17 02:46 06/26/17 02:47 Bedside Glucose 55 mg/dl 69 mg/dl 106 mg/dl White Blood Count 5.02 K/uL Red Blood Count 3.11 M/uL Hemoglobin 8.6 g/dL Hematocrit 27.9 % Mean Corpuscular Volume 89.7 fL Mean Corpuscular Hemoglobin 27.7 pg Mean Corpuscular Hemoglobin Concent 30.8 g/dl RDW Standard Deviation 55.1 fL RDW Coefficient of Variation 16.8 % Platelet Count 215 K/uL Mean Platelet Volume 8.4 fL Prothrombin Time 28.6 SECONDS Prothromb Time International Ratio 2.8 Sodium Level 139 mmol/L Potassium Level 4.6 mmol/L Chloride Level 106 mmol/L Carbon Dioxide Level 29 mmol/L Anion Gap 4.0 mmol/L Blood Urea Nitrogen 52 mg/dl Creatinine 3.28 mg/dl Est Creatinine Clear Calc Drug Dose 27.7 ml/min Estimated GFR () 22.0 Estimated GFR (Non- 19.0 BUN/Creatinine Ratio 15.9 Random Glucose 103 mg/dl Calcium Level 8.4 mg/dl Troponin I < 0.015 ng/ml Test 06/26/17 07:18 Bedside Glucose 127 mg/dl Diagnostic Radiology: CXR >> no consolidation/overt HF/ effusions BLE dopplers > no dvt Assessment & Plan 62 y/o M w/ DM, HTN, non ischemic [employer] w/ EF 35%, , remote 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 SBP in 90-100s generally since arrival PAM on CKD versus CKD progression, likelier the latter, w/ mild volume overload chemistries, volume status acceptable -creatinine has now been in current range of about 3 for just over a month, in which time he also had a few acute dialysis treatments during last admission -historically proteinuric; recheck UA -no indication for urgent dialysis; cannot rule out need however and he is certainly much closer to chronic dialysis than he was 6-8 mos back; that said, he is on minimal diuretics at this time -daily bmp Hx of resistant HTN now w/ relative and possibly symptomatic hypotension -agree w/ cardiology recs for BP med changes -- may need to stop CCB and / or readjust hydralazine; will increase lasix to improve edema cbc Acute on chronic dyspnea recurrent in pt w/ prolonged worsened functional status /illness CXR clear; A fib and other possible cardiac disease suspected to have a role as may anemia -cardioversion contemplated for early next week -will recheck iron stores in am; consider epo to bring hgb closer to 10 if possible -will change lasix to 30 IV bid, first dose today Appreciate consult; will follow with you.
[2017-06-26] MEDS ORDERED: FUROSEMIDE INJ 30 MG in SYRINGE 0 ML IV ONE (17:30)
--- NOTE | 2017-06-26 18:41 | Progress Note ---
Progress Note Date of Service Jun 26, 2017. Progress Note Subjective: Patient this AM reports still shortness of breath on exertion. Have explained to patient that there is no one acute finding that is likely to be identified as the source of his respiratory issues. Patient reports that he will stay in the hospital for a week or 2 if he has to in order for the breathing problems to be resolved. For much of the rest of the day, patient sleeping when medical doctor came by for re-assessment. Patient has now been seen by several specialty services today Physical Exam today General: no acute distress Lungs: CTABL, no wheezing Heart: irregular rhythm but rate controlled Abdomen: truncal obesity, soft, nontender, nondistended, + bowel sounds Extremities: bilateral lower extremity edema Assessment and Plan: Multifactorial health problems for exertional dyspnea primarily, and chest discomfort secondary to exertional dyspnea Respiratory was admitted here from 05/23-06/10 w/ acute on chronic respiratory failure with PAM on CKD and retroperitoneal hemorrhage (complication of line placement) D-dimer is positive but no evidence of DVT so unlikely to have failed anticoagulation therapy and have thromboembolism c/w nebulizer treatments requested pulmonary service to perform evaluation on 06/26/17, awaiting recommendations Cardiovascular Nonischemic cardiomyopathy NYHA Functional Class III Dyspnea Chronic left bundle branch block with QRS duration greater than 150 ms. Left ventricular ejection fraction ~35% Normovolemic. Moderate Aortic Stenosis Atrial fibrillation - on Coumadin for anticoagulation, and amiodarone for heart rhythm which is still in afib, have asked cardiology service whether patient may benefit from cardioversion Cardiology recommendations 06/26/17: Discontinue Carvedilol, Start Toprol XL 50 mg /day, Decrease amlodipine from 10 mg/day to 5 mg/day, Increase Hydralazine for additional blood pressure control, Continue oral nitrates, No ACEI/ARB/Entresto secondary to renal dysfunction troponins negative on this admission Nephrology / Anemia Nephrology consult adjusting diuretics in regards to the renal function ( PAM on CKD versus CKD progression) and anemia management DVT ppx: coumadin Full Code
[2017-06-26] MEDS: ROSUVASTATIN CALCIUM 20 MG TAB PO SCH (20:58)
[2017-06-26] MEDS ORDERED: INSULIN GLARGINE SOLOSTAR 100 UNITS/ML 3 ML PEN SC SCH ×2 (21:00→21:47)
[2017-06-27] VITALS (7 sets, daily range): BP systolic 101–130; BP diastolic 67–89; PULSE 64–100; TEMP 36.9–37.1; O2SAT 90–97
[2017-06-27] MEDS: ISOSORBIDE DINITRATE 10 MG TAB PO SCH ×3 (06:42→17:11)
[2017-06-27] MEDS: FUROSEMIDE INJ 30 MG in SYRINGE 0 ML IV SCH ×3 (06:43→13:08)
[2017-06-27 06:50] LABS: HEMATOCRIT 26.5 % (42-52); HEMOGLOBIN 8.4 g/dL (14.0-18.0); MEAN CORPUSCULAR HEMOGLOBIN 27.9 pg (25-34); MEAN CORPUSCULAR HGB CONC 31.7 g/dl (32-36); MEAN PLATELET VOLUME 8.5 fL (7.4-10.4); PLATELET COUNT 219 K/uL (130-400); RED CELL DISTRIBUTION WIDTH CV 16.5 % (11.5-14.5); RED CELL DISTRIBUTION WIDTH SD 53.6 fL (36.4-46.3); WHITE BLOOD COUNT 5.48 K/uL (4.8-10.8)
[2017-06-27 07:01] LABS: INR 2.7 (0.9-1.1)
[2017-06-27 07:24] LABS: CALCIUM 8.5 mg/dl (8.5-10.1); CREATININE 3.6 mg/dl (0.60-1.40); POTASSIUM 4.7 mmol/L (3.5-5.1)
[2017-06-27] MEDS: PANTOprazole SOD 40 MG TAB PO SCH (07:49)
[2017-06-27] MEDS: METOPROLOL SUCC 50MG EXT REL TAB PO SCH (07:49)
[2017-06-27] MEDS: AMLODIPINE BESYLATE 5 MG TAB PO SCH (07:49)
[2017-06-27] MEDS: GABAPENTIN 600 MG TAB PO SCH ×3 (07:50→21:05)
[2017-06-27] MEDS: AMIODARONE 200 MG TAB PO SCH ×2 (07:50→21:04)
[2017-06-27] MEDS: ASPIRIN 81 MG ECTAB PO SCH (07:50)
[2017-06-27] MEDS: DULOXETINE HCL 60 MG CAP PO SCH (07:50)
[2017-06-27] MEDS: INSULIN ASPART 100 UNITS/ML 3 ML PEN SC SCH ×4 (07:52→21:11)
[2017-06-27] MEDS ORDERED: METOPROLOL TARTRATE 1 MG/ML VIAL ONE (12:56)
[2017-06-27] MEDS ORDERED: METOPROLOL TARTRATE 1 MG/ML VIAL IV STA (13:21)
--- NOTE | 2017-06-27 13:22 | Pharmacy Progress Note ---
Pharmacy Glycemic Short Note 2 Date of Service Jun 27, 2017. OUTPATIENT ANTIDIABETIC REGIMEN: * Lantus 45 units sq q PM * Novolog 7 units breakfast, 14 units with lunch & dinner * Total insulin = 80 units/day Test 06/26/17 16:33 06/26/17 16:51 06/26/17 20:30 06/27/17 02:41 Bedside Glucose 52 mg/dl (70-99) 91 mg/dl (70-99) 104 mg/dl (70-99) 51 mg/dl (70-99) Test 06/27/17 02:57 06/27/17 06:14 06/27/17 07:31 06/27/17 11:45 Bedside Glucose 84 mg/dl (70-99) 112 mg/dl (70-99) 120 mg/dl (70-99) Random Glucose 122 mg/dl (70-99) ASSESSMENT: 06/27/17 * Pt had hypoglycemia again prior to dinner and overnight at 0241 last night, despite large reductions in Lantus. Will further decrease dose and loosen CF and CR slightly. Will also adjust goal range to prevent further hypoglycemia. 06/26/17 * 62 year old T2DM admitted with CP and hyperglycemia. Pt started on home dose of Lantus yesterday and received CF and CR and 10 units IV regular insulin in ED * Pt with hypoglycemia last night, will decrease Lantus dose, as pt only required about 20 units of Lantus/day last admission in May. PLAN FOR INPATIENT GLYCEMIC CONTROL: * DECREASE: Basal insulin * Lantus SQ HS based on BSG * BSG < 120mg/dl - 0 units * BSG 120-180mg/dl - 8 units * BSG > 180mg/dl - 15 units * Bolus insulin * NovoLog per scale ACHS or Q6hrs while NPO * CHANGE: Goal Range: Low 120 mg/dL - High 150 mg/dL * LOOSEN: Correction Factor: 25 mg/dL/unit * LOOSEN: Nutritional / Prandial insulin per carb ratio of 1 unit per 9 grams CHO consumed PLAN FOR DISCHARGE: * A1c 9.5% on 05/27/17 - above goal, recommend titrating insulin doses per outpatient provider.
[2017-06-27] MEDS ORDERED: NURSING VERBAL MED ORDER ONE (13:30)
--- NOTE | 2017-06-27 13:40 | Cardiology Follow-Up ---
Subjective Subjective Date of Service: Jun 27, 2017. Pt evaluation today including: conversation w/ patient, conversation w/ family , physical exam, chart review, lab review, review of studies, review of inpatient medication list Additional Details: Pt seen and examined with family at bedside, states that his breathing has improved somewhat since admission but still significantly dyspnic with minimal exertion. Denies cp, palpitations, lightheadedness or dizziness. Tele reviewed: regular wide complex rhythm with occasional PVC's. Problem List Medical Problems: (1) CHF (congestive heart failure) Status: Acute (2) CHF (congestive heart failure) Status: Acute (3) Diffuse abdominal pain Status: Acute (4) Elevated troponin Status: Acute (5) Precordial chest pain Status: Acute (6) Renal cyst Status: Acute (7) Shortness of breath Status: Acute (8) Shortness of breath Status: Acute Review of Systems Constitutional: + weakness, + fatigue, No fever, No weight loss Eyes: No worsening of vision Respiratory: + cough (occasional), + shortness of breath, + dyspnea on exertion , + dyspnea at rest, No wheezing Cardiac: + edema, No chest pain, No PND, No palpitations Musculoskeletal: No joint pain, No muscle pain Male : No dysuria, No incontinence, No hematuria Neurologic: + weakness, No memory loss, No balance problems Psychiatric: No depression symptoms, No anxiety Heme: No abnormal bleeding/bruising Endo: + fatigue Objective Vital Signs Last Vital Signs Documentation Date Time Temp Pulse Resp B/P (MAP) Pulse Ox O2 Delivery O2 Flow Rate FiO2 06/27/17 13:15 80 119/75 (90) 97 Nasal Cannula 2.0 06/27/17 11:23 37.1 18 Physical Exam: General Appearance: WD/WN, no apparent distress Eyes: bilateral eyes normal inspection, bilateral eyes PERRL, bilateral eyes EOMI ENT: normal ENT inspection, hearing grossly normal, pharynx normal Neck: supple, no adenopathy, thyroid normal, no JVD, no carotid bruits, trachea midline Respiratory/Chest: chest non-tender, lungs clear, normal breath sounds, no respiratory distress, no accessory muscle use Cardiovascular: regular rate, rhythm, + tachycardia, + systolic murmur (3/6 mid to late ayesha, 2nd ics, rsb without radiation), + gallop/S4 Abdomen: normal bowel sounds, non tender, soft, no organomegaly, no pulsatile mass Extremities: non-tender, normal inspection, no calf tenderness, + pedal edema ( 1+ B/L LE pitting edema) Neurologic/Psychiatric: information assurance manager II-XII nml as tested, no motor/sensory deficits, alert, normal mood/affect, oriented x 3 Skin: normal color, warm/dry, no rash Lymphatic: no adenopathy Assessment and Plan 1. atrial fibrillation ekg upon presentation clearly shows atrial fibrillation repeat ekg today shows organized atrial activity with consistent P waves, some slight variation in P wave morphology ?sinus rhythm with 1st degree AV block and PAC's vs. wandering atrial pacemaker vs. atrial flutter will attempt further rate control at this time will give 5mg of IV Lopressor now and follow rhythm if we are able to determine that patient is in atrial fibrillation/flutter then will likely benefit from LIZZIE guided cardioversion cont metoprolol, amiodarone and coumadin 2. [facility] cardiac cath 07/04 without significant obstruction doubt that has developed obstructive CAD in 1 year obviously, given renal function would like to avoid dye load will plan for Lexiscan nuclear stress on Thursday to rule out ischemia if ischemia is ruled out and patient is not in an atrial arrhythmia then would likely benefit from BiV ICD placement lungs clear
--- NOTE | 2017-06-27 14:53 | Progress Note ---
Internal Med Progress Note Date of Service: Jun 27, 2017. Provider Documentation: Subjective: Patient this AM reports still shortness of breath on exertion. Patient reports he feels that the pedal edema is getting worse Physical Exam today General: no acute distress Lungs: CTABL, no wheezing Heart: irregular rhythm but rate controlled Abdomen: truncal obesity, soft, nontender, nondistended, + bowel sounds Extremities: bilateral lower extremity edema ASSESSMENT & PLAN: Assessment and Plan: Multifactorial health problems for exertional dyspnea primarily, and chest discomfort secondary to exertional dyspnea Respiratory was admitted here from 05/23-06/10 w/ acute on chronic respiratory failure with PAM on CKD and retroperitoneal hemorrhage (complication of line placement) D-dimer is positive but no evidence of DVT so unlikely to have failed anticoagulation therapy and have thromboembolism c/w nebulizer treatments requested pulmonary service to perform evaluation on 06/26/17, awaiting recommendations Cardiovascular Nonischemic cardiomyopathy NYHA Functional Class III Dyspnea Chronic left bundle branch block with QRS duration greater than 150 ms. Left ventricular ejection fraction ~35% Normovolemic. Moderate Aortic Stenosis Atrial fibrillation - on Coumadin for anticoagulation, and amiodarone for heart rhythm which is still in afib, have asked cardiology service whether patient may benefit from cardioversion Cardiology recommendations 06/26/17: Discontinue Carvedilol, Start Toprol XL 50 mg /day, Decrease amlodipine from 10 mg/day to 5 mg/day, Increase Hydralazine for additional blood pressure control, Continue oral nitrates, No ACEI/ARB/Entresto secondary to renal dysfunction troponins negative on this admission Cardiology recommendations 06/27/17: cont metoprolol, amiodarone and coumadin, lopressor 5 mg IV given. sinus rhythm with 1st degree AV block and PAC's vs. wandering atrial pacemaker vs. atrial flutter. patient may benefit from LIZZIE guided cardioversion. Lexiscan nuclear stress on Thursday06/29/17 to rule out ischemia. if ischemia is ruled out and patient is not in an atrial arrhythmia then would likely benefit from BiV ICD placement Nephrology / Anemia Nephrology consult have been adjusting diuretics in regards to the renal function (PAM on CKD versus CKD progression) and anemia management Diabetes type 2 on insulin and being followed by pharmacy glycemic control and having night time hypoglycemic readings and needing insulin adjustments DVT ppx: coumadin Full Code Vital Signs: Date Time Temp Pulse Resp B/P (MAP) Pulse Ox O2 Delivery O2 Flow Rate FiO2 06/27/17 13:15 80 119/75 (90) 97 Nasal Cannula 2.0 06/27/17 13:11 90 123/82 06/27/17 12:00 Nasal Cannula 2.0 06/27/17 11:23 37.1 83 18 105/68 (80) 91 Nasal Cannula 2.0 06/27/17 08:10 Nasal Cannula 2.0 06/27/17 07:10 36.9 85 18 111/70 (84) 90 Room Air 06/27/17 06:46 92 114/67 (83) 06/27/17 04:00 Nasal Cannula 2.0 06/27/17 00:00 Nasal Cannula 2.0 06/26/17 23:24 36.7 83 18 107/67 (80) 94 Nasal Cannula 2.0 06/26/17 20:00 Nasal Cannula 2.0 06/26/17 19:29 36.8 80 18 111/72 (85) 93 Nasal Cannula 2.0 06/26/17 16:16 Nasal Cannula 2.0 06/26/17 15:05 36.6 90 18 113/73 (86) 97 1.5 Lab Results: Results Past 24 Hours Test 06/26/17 16:33 06/26/17 16:51 06/26/17 20:30 06/27/17 02:41 Range/Units Bedside Glucose 52 91 104 51 70-99 mg/dl Test 06/27/17 02:57 06/27/17 06:14 06/27/17 07:31 06/27/17 11:45 Range/Units Bedside Glucose 84 112 120 70-99 mg/dl White Blood Count 5.48 4.8-10.8 K/uL Red Blood Count 3.01 4.7-6.1 M/uL Hemoglobin 8.4 14.0-18.0 g/dL Hematocrit 26.5 42-52 % Mean Corpuscular Volume 88.0 80-100 fL Mean Corpuscular Hemoglobin 27.9 25-34 pg Mean Corpuscular Hemoglobin Concent 31.7 32-36 g/dl RDW Standard Deviation 53.6 36.4-46.3 fL RDW Coefficient of Variation 16.5 11.5-14.5 % Platelet Count 219 130-400 K/uL Mean Platelet Volume 8.5 7.4-10.4 fL Prothrombin Time 27.5 9.0-12.0 SECONDS Prothromb Time International Ratio 2.7 0.9-1.1 Sodium Level 136 136-145 mmol/L Potassium Level 4.7 3.5-5.1 mmol/L Chloride Level 102 98-107 mmol/L Carbon Dioxide Level 27 21-32 mmol/L Anion Gap 7.0 3-11 mmol/L Blood Urea Nitrogen 62 7-18 mg/dl Creatinine 3.60 0.60-1.40 mg/dl Est Creatinine Clear Calc Drug Dose 25.8 ml/min Estimated GFR () 19.6 Estimated GFR (Non- 16.9 BUN/Creatinine Ratio 17.1 10-20 Random Glucose 122 70-99 mg/dl Calcium Level 8.5 8.5-10.1 mg/dl Iron Level 33 35-175 mcg/dl Total Iron Binding Capacity 289 250-450 mcg/dl Transferrin 229 200-360 mg/dl Transferrin % Saturation 10 20-50 %
--- NOTE | 2017-06-27 16:44 | Nephrology Progress Note ---
Nephrology Progress Note Date of Service: Jun 27, 2017. Subjective feels a bit better in terms of swelling, resting dyspnea; creatinine bumped; no n/v, Objective Date Time Temp Pulse Resp B/P (MAP) Pulse Ox O2 Delivery O2 Flow Rate FiO2 06/27/17 16:01 Nasal Cannula 2.0 06/27/17 15:25 37.0 82 18 130/89 (103) 95 Nasal Cannula 1.0 06/27/17 13:15 80 119/75 (90) 97 Nasal Cannula 2.0 06/27/17 13:11 90 123/82 06/27/17 12:00 Nasal Cannula 2.0 06/27/17 11:23 37.1 83 18 105/68 (80) 91 Nasal Cannula 2.0 06/27/17 08:10 Nasal Cannula 2.0 06/27/17 07:10 36.9 85 18 111/70 (84) 90 Room Air 06/27/17 06:46 92 114/67 (83) 06/27/17 04:00 Nasal Cannula 2.0 06/27/17 00:00 Nasal Cannula 2.0 06/26/17 23:24 36.7 83 18 107/67 (80) 94 Nasal Cannula 2.0 06/26/17 20:00 Nasal Cannula 2.0 06/26/17 19:29 36.8 80 18 111/72 (85) 93 Nasal Cannula 2.0 Physical Exam: General-up in chair on ra nad, very slightly dypsneic w/ speech Eyes-eomi ENT-mmm Neck-supple Lungs-diminished air entry throughout but clear Heart-distant HS irregularly irregular Abdomen-NT +BS soft Extremities-1+ RLE, trace L ankle edema Neuro-mathew, fluent speech Current Inpatient Medications Medications (Trade) Dose Ordered Sig/Larry Route Start Time Stop Time Status Last Admin Dose Admin Miscellaneous Information (Consult Glycemic Management Pharmacy) 1 ea UD PRN N/A 06/25/17 16:00 07/25/17 15:59 Insulin Aspart (novoLOG ASPART) SLIDING SCALE If C... ACHS SC 06/25/17 21:00 07/25/17 20:59 06/27/17 13:10 5 UNITS Glucose (Glucose 40% Gel) 15-30 GRAMS 15 GRAMS... UD PRN PO 06/25/17 16:00 07/25/17 15:59 Glucose (Glucose Chew Tab) 4-8 Tablets 4 Tabl... UD PRN PO 06/25/17 16:00 07/25/17 15:59 Dextrose (Dextrose 50% 50ML Syringe) 25-50ML OF 50% DW IV FOR... UD PRN IV 06/25/17 16:00 07/25/17 15:59 Glucagon (Glucagon Inj) 1 mg UD PRN SQ 06/25/17 16:00 07/25/17 15:59 Acetaminophen (Tylenol Tab) 650 mg Q4H PRN PO 06/25/17 16:00 07/25/17 15:59 Al Hydrox/Mg Hydrox/Simethicone (Maalox Max Susp) 15 ml Q4H PRN PO 06/25/17 16:00 07/25/17 15:59 Magnesium Hydroxide (Milk Of Magnesia Susp) 30 ml Q12H PRN PO 06/25/17 16:00 07/25/17 15:59 Miscellaneous (Iv Fluids Completed) 1 ea PRN PRN N/A 06/25/17 16:15 06/25/18 16:14 Albuterol (Ventolin Hfa Inhaler) 2 puffs Q4H PRN INH 06/25/17 16:15 07/25/17 16:14 Amiodarone HCl (Cordarone Tab) 200 mg BID PO 06/25/17 21:00 07/25/17 20:59 06/27/17 07:50 200 MG Aspirin (Ecotrin Tab) 81 mg QAM PO 06/26/17 09:00 07/26/17 08:59 06/27/17 07:50 81 MG Duloxetine HCl (Cymbalta Cap) 60 mg DAILY PO 06/26/17 09:00 07/26/17 08:59 06/27/17 07:50 60 MG Gabapentin (Neurontin Tab) 600 mg TID PO 06/25/17 21:00 07/25/17 20:59 06/27/17 13:09 600 MG Albuterol/ Ipratropium (Duoneb) 3 ml QID PRN INH 06/25/17 16:15 07/25/17 16:14 Isosorbide Dinitrate (Isordil Tab) 20 mg TID@0700,1200,1700 PO 06/25/17 17:00 07/25/17 16:59 06/27/17 13:07 20 MG Pantoprazole Sodium (Protonix Tab) 40 mg QAM PO 06/26/17 09:00 07/26/17 08:59 06/27/17 07:49 40 MG Rosuvastatin Calcium (Crestor Tab) 40 mg HS PO 06/25/17 21:00 07/25/17 20:59 06/26/17 20:58 40 MG Warfarin Sodium (Coumadin Tab) 5 mg DAILY@1600 PO 06/25/17 20:00 07/25/17 19:59 06/26/17 14:58 5 MG Miscellaneous Information (Order Awaiting Action) 1 ea QS N/A 06/26/17 00:00 07/26/17 00:00 Amlodipine Besylate (Norvasc Tab) 5 mg DAILY PO 06/27/17 09:00 07/26/17 08:59 06/27/17 07:49 5 MG Hydralazine HCl (Apresoline Tab) 25 mg TID PO 06/26/17 14:00 07/25/17 20:59 06/27/17 13:08 25 MG Metoprolol Succinate (Toprol Xl Tab) 50 mg QAM PO 06/27/17 09:00 07/27/17 08:59 06/27/17 07:49 50 MG Furosemide 30 mg/ Syringe 3 ml @ 4 mls/min [id number] IV 06/27/17 07:00 07/27/17 06:59 06/27/17 13:08 4 MLS/MIN Insulin Glargine (Lantus Solostar Pen) SEE PROTOCOL HS SC 06/27/17 21:00 07/27/17 20:59 Budesonide/ Formoterol Fumarate (Symbicort 160/ 4.5 Inh) 2 puffs BID INH 06/27/17 21:00 07/27/17 20:59 Last 24 Hours Test 06/26/17 16:33 06/26/17 16:51 06/26/17 20:30 06/27/17 02:41 Bedside Glucose 52 mg/dl 91 mg/dl 104 mg/dl 51 mg/dl Test 06/27/17 02:57 06/27/17 06:14 06/27/17 07:31 06/27/17 11:45 Bedside Glucose 84 mg/dl 112 mg/dl 120 mg/dl White Blood Count 5.48 K/uL Red Blood Count 3.01 M/uL Hemoglobin 8.4 g/dL Hematocrit 26.5 % Mean Corpuscular Volume 88.0 fL Mean Corpuscular Hemoglobin 27.9 pg Mean Corpuscular Hemoglobin Concent 31.7 g/dl RDW Standard Deviation 53.6 fL RDW Coefficient of Variation 16.5 % Platelet Count 219 K/uL Mean Platelet Volume 8.5 fL Prothrombin Time 27.5 SECONDS Prothromb Time International Ratio 2.7 Sodium Level 136 mmol/L Potassium Level 4.7 mmol/L Chloride Level 102 mmol/L Carbon Dioxide Level 27 mmol/L Anion Gap 7.0 mmol/L Blood Urea Nitrogen 62 mg/dl Creatinine 3.60 mg/dl Est Creatinine Clear Calc Drug Dose 25.8 ml/min Estimated GFR () 19.6 Estimated GFR (Non- 16.9 BUN/Creatinine Ratio 17.1 Random Glucose 122 mg/dl Calcium Level 8.5 mg/dl Iron Level 33 mcg/dl Total Iron Binding Capacity 289 mcg/dl Transferrin 229 mg/dl Transferrin % Saturation 10 % Test 06/27/17 16:07 Bedside Glucose 215 mg/dl Assessment & Plan 62 y/o M w/ DM, HTN, 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 SBP in 90-100s initially at arrival > improved w/ med titration PAM on CKD versus CKD progression, likelier the latter, w/ mild volume overload chemistries, volume status acceptable -creatinine has been about 3 for just over a month, in which time he also had a few acute dialysis treatments during last admission >> today w/ lasix on board increased and will cut lasix back to 10 mg iv bid -historically proteinuric; recheck UA -no indication for urgent dialysis; cannot rule out need however and he is certainly much closer to chronic dialysis than he was 6-8 mos back; pt aware -daily bmp Hx of resistant HTN now w/ relative and possibly symptomatic hypotension on admission improved today -cont current meds except lasix adjustment Acute on chronic dyspnea recurrent in pt w/ prolonged worsened functional status /illness CXR clear; A fib and other possible cardiac disease suspected to have a role as may anemia -cardioversion / nuclear stress/ possibly defibrillator contemplated for next week -iron stores low > will load over next 4 days; then nephro to consider epo to bring hgb closer to 10 if possible -lowered lasix as above Appreciate consult; will follow with you.
[2017-06-27] MEDS: WARFARIN SOD 5 MG TAB PO SCH (17:10)
[2017-06-27] MEDS ORDERED: IRON SUCROSE IV SCH (17:30)
[2017-06-27] MEDS ORDERED: SODIUM CHLORIDE 0.9% IV SCH (17:30)
--- NOTE | 2017-06-27 18:35 | Pulmonary Consultation ---
History General Date of Service: Jun 27, 2017. Chief Complaint: Shortness of breath Stated Complaint: Chest Pain HPI 62 year old male with complex medical history, including heart failure, a-fib on Coumadin, CKD (on transient HD last admission), asthma, was recently discharged from the hospital, now returned for chest pain, shortness of breath and LE edema. Last admission in May, he was diagnosed with influenza, course complicated by significant respiratory failure, almost intubated, was in the ICU, started on HD, amiodarone, heparin drip. Was treated with steroids for asthma exacerbation at the time, with improvement. Had severe uremic encephalopathy, now resolved. He developed left RP bleed while on heparin. Stabilized, now tolerating Coumadin After discharge, the patient felt unsteady, had multiple falls. He returned because he developed some chest pain, seems worse with deep breathing. Also noticed decreased exercise tolerance and severe LE swelling. 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 EF 35-40% this admission A-fib Asthma Moderate CKD DM2 Family History Diabetes mellitus SISTER BROTHER FH: CHF (congestive heart failure) MOTHER Hypertension SON Social History Hx Tobacco Use In Past Year?: No Smoking Status: Never Smoker Marital status: Housing status: lives with significant other Occupational Status: retired Allergies Coded Allergies: No Known Allergies (Verified , 05/23/17) Current Medications Reported Home Medications Medications Dose Route/Sig Max Daily Dose Days Date Category Dose Instructions Lantus Solostar (Insulin Glargine) 100 Unit/Ml Inj 45 Units SQ PM 06/25/17 Reported Neurontin (Gabapentin) 300 Mg Cap 600 Mg PO TID 06/25/17 Reported Duoneb (Ipratropium-Albuterol) 3 Ml Nebu 1 Treatment INH QID PRN 06/25/17 Reported Isordil (Isosorbide Dinitrate) 10 Mg Tab 20 Mg PO TID 06/25/17 Reported Coumadin (Warfarin Sodium) 5 Mg Tab 5 Mg PO DAILY 06/25/17 Reported Cordarone (Amiodarone Hcl) 200 Mg Tab 200 Mg PO BID 06/25/17 Reported Hydralazine HCl 25 Mg Tab 12.5 Mg PO BID 06/25/17 Reported Lasix (Furosemide) 20 Mg Tab 20 Mg PO QAM 05/23/17 Reported Norvasc (Amlodipine Besylate) 10 Mg Tab 10 Mg PO DAILY 05/23/17 Reported Breo Ellipta (Fluticasone Furoate-Vilanterol) 1 Inh Inh 1 Puff PO DAILY 04/23/17 Reported Cymbalta (Duloxetine Hcl) 60 Mg Cap 60 Mg PO DAILY 04/23/17 Reported Protonix (Pantoprazole Sodium) 40 Mg Tab 40 Mg PO QAM 11/17/16 Reported Ventolin Hfa (Albuterol) 60 Puffs/5400 Mcg Aers 2 Puffs INH Q4H PRN 06/19/16 Reported Aspirin Ec (Aspirin) 81 Mg Tab 81 Mg PO QAM 06/19/16 Reported Vitamin D3 (Cholecalciferol) 2,000 Unit Tab 2,000 Inter.unit PO QAM 06/19/16 Reported Carvedilol 25 Mg Tab 12.5 Mg PO BID 06/19/16 Reported Crestor (Rosuvastatin Calcium) 40 Mg Tab 40 Mg PO HS 06/19/16 Reported Novolog Flexpen (Insulin Aspart) 100 Units/Ml Inj 14 Units SQ UD 06/19/16 Reported with lunch and dinner Novolog Flexpen (Insulin Aspart) 100 Units/Ml Inj 7 Units SQ QAM 06/19/16 Reported Physical Physical Exam Vital Signs: Date Time Temp Pulse Resp B/P (MAP) Pulse Ox O2 Delivery O2 Flow Rate FiO2 06/27/17 16:01 Nasal Cannula 2.0 06/27/17 15:25 37.0 82 18 130/89 (103) 95 Nasal Cannula 1.0 06/27/17 13:15 80 119/75 (90) 97 Nasal Cannula 2.0 06/27/17 13:11 90 123/82 06/27/17 12:00 Nasal Cannula 2.0 06/27/17 11:23 37.1 83 18 105/68 (80) 91 Nasal Cannula 2.0 06/27/17 08:10 Nasal Cannula 2.0 06/27/17 07:10 36.9 85 18 111/70 (84) 90 Room Air 06/27/17 06:46 92 114/67 (83) 06/27/17 04:00 Nasal Cannula 2.0 06/27/17 00:00 Nasal Cannula 2.0 06/26/17 23:24 36.7 83 18 107/67 (80) 94 Nasal Cannula 2.0 06/26/17 20:00 Nasal Cannula 2.0 06/26/17 19:29 36.8 80 18 111/72 (85) 93 Nasal Cannula 2.0 General: Pleasant male, no acute distress Lungs: Clear to auscultation, no wheezing CVS:S1S2 irregular, systolic murmur Abd: Soft Ext: extensive, tense LE pitting edema Diagnostics Labs Results Past 24 Hours Test 06/26/17 20:30 06/27/17 02:41 06/27/17 02:57 06/27/17 06:14 Range/Units Bedside Glucose 104 51 84 70-99 mg/dl White Blood Count 5.48 4.8-10.8 K/uL Red Blood Count 3.01 4.7-6.1 M/uL Hemoglobin 8.4 14.0-18.0 g/dL Hematocrit 26.5 42-52 % Mean Corpuscular Volume 88.0 80-100 fL Mean Corpuscular Hemoglobin 27.9 25-34 pg Mean Corpuscular Hemoglobin Concent 31.7 32-36 g/dl RDW Standard Deviation 53.6 36.4-46.3 fL RDW Coefficient of Variation 16.5 11.5-14.5 % Platelet Count 219 130-400 K/uL Mean Platelet Volume 8.5 7.4-10.4 fL Prothrombin Time 27.5 9.0-12.0 SECONDS Prothromb Time International Ratio 2.7 0.9-1.1 Sodium Level 136 136-145 mmol/L Potassium Level 4.7 3.5-5.1 mmol/L Chloride Level 102 98-107 mmol/L Carbon Dioxide Level 27 21-32 mmol/L Anion Gap 7.0 3-11 mmol/L Blood Urea Nitrogen 62 7-18 mg/dl Creatinine 3.60 0.60-1.40 mg/dl Est Creatinine Clear Calc Drug Dose 25.8 ml/min Estimated GFR () 19.6 Estimated GFR (Non- 16.9 BUN/Creatinine Ratio 17.1 10-20 Random Glucose 122 70-99 mg/dl Calcium Level 8.5 8.5-10.1 mg/dl Iron Level 33 35-175 mcg/dl Total Iron Binding Capacity 289 250-450 mcg/dl Transferrin 229 200-360 mg/dl Transferrin % Saturation 10 20-50 % Test 06/27/17 07:31 06/27/17 11:45 06/27/17 16:07 Range/Units Bedside Glucose 112 120 215 70-99 mg/dl Diagnostic Radiology CXR 06/25/17 The heart is mildly enlarged. There is no focal pulmonary consolidation. There is no overt failure. There are no pleural effusions. Impression Assessment and Plan 62 year old male, with non-ischemic cardiomyopathy, CKD, never-smoker, h/o asthma, admitted with chest pain and shortness of breath. Has progressive LE edema, decreasing exercise tolerance. Complex patient, marsha with multifactorial etiology of dyspnea Plan: Spirometry was normal last March Repeat PFTs, also to include lung volumes and DLCO Started on Symbicort (takes Breo at home) I believe the etiology of his declining exercise tolerance with dyspnea on exertion is related much less to intrinsic lung disease and is more a manifestation of cardiac/renal pathology LE doppler negative for DVT. Anticoagulated. Doubt PE Needs to unload fluid which can certainly complicate his respiratory status. Both cardiac and renal disease contribute to fluid overload Nephrology following, on Lasix. May eventually require HD Continue cardiac work-up. To get a dobutamine stress test Being considered for LIZZIE cardioversion Potentially may benefit from BiV ICD insertion pre cardio if he remains in sinus rhythm and does not have ischemia Will follow up the patient
[2017-06-27] MEDS: BUDESONIDE/FORMOTEROL FUMARATE 160/4.5 60 PUFFS/INHALER INH SCH (21:00)
[2017-06-27] MEDS ORDERED: INSULIN GLARGINE SOLOSTAR 100 UNITS/ML 3 ML PEN SC SCH (21:00)
[2017-06-27] MEDS: ROSUVASTATIN CALCIUM 20 MG TAB PO SCH (21:03)
[2017-06-27] MEDS: INSULIN GLARGINE SOLOSTAR 100 UNITS/ML 3 ML PEN SC SCH (21:12)
[2017-06-28] VITALS (10 sets, daily range): BP systolic 103–147; BP diastolic 63–83; PULSE 73–100; TEMP 36.4–37.1; O2SAT 91–97
[2017-06-28] MEDS: FUROSEMIDE INJ 10 MG in SYRINGE 0 ML IV SCH ×2 (05:48→14:31)
[2017-06-28] MEDS: ISOSORBIDE DINITRATE 10 MG TAB PO SCH ×3 (05:48→16:47)
[2017-06-28 06:03] LABS: BASO % 0.2 %; BASO ABS # 0.01 K/uL (0-0.2); EOS % 1.5 %; EOS ABS # 0.07 K/uL (0-0.5); HEMATOCRIT 27.1 % (42-52); HEMOGLOBIN 8.4 g/dL (14.0-18.0); IG# 0.03 K/uL (0.00-0.02); LYMPH ABS # 0.62 K/uL (1.2-3.4); MEAN CORPUSCULAR HEMOGLOBIN 27.3 pg (25-34); MEAN PLATELET VOLUME 8.7 fL (7.4-10.4); MONO ABS # 0.62 K/uL (0.11-0.59); NEUT % 71.7 %; NEUT ABS # 3.43 K/uL (1.4-6.5); PLATELET COUNT 230 K/uL (130-400); RED CELL DISTRIBUTION WIDTH CV 16.3 % (11.5-14.5); RED CELL DISTRIBUTION WIDTH SD 52.8 fL (36.4-46.3); WHITE BLOOD COUNT 4.78 K/uL (4.8-10.8)
[2017-06-28 06:37] LABS: ALBUMIN 2.6 gm/dl (3.4-5.0); CALCIUM 8.3 mg/dl (8.5-10.1); CREATININE 3.44 mg/dl (0.60-1.40); POTASSIUM 4.1 mmol/L (3.5-5.1)
[2017-06-28] MEDS: BUDESONIDE/FORMOTEROL FUMARATE 160/4.5 60 PUFFS/INHALER INH SCH ×2 (08:09→20:55)
[2017-06-28] MEDS: AMIODARONE 200 MG TAB PO SCH ×2 (08:10→20:57)
[2017-06-28] MEDS: DULOXETINE HCL 60 MG CAP PO SCH (08:10)
[2017-06-28] MEDS: GABAPENTIN 600 MG TAB PO SCH ×3 (08:10→20:58)
[2017-06-28] MEDS: AMLODIPINE BESYLATE 5 MG TAB PO SCH (08:10)
[2017-06-28] MEDS: ASPIRIN 81 MG ECTAB PO SCH (08:10)
[2017-06-28] MEDS: METOPROLOL SUCC 50MG EXT REL TAB PO SCH (08:11)
[2017-06-28] MEDS: PANTOprazole SOD 40 MG TAB PO SCH (08:11)
[2017-06-28] MEDS: INSULIN ASPART 100 UNITS/ML 3 ML PEN SC SCH ×4 (08:15→21:00)
[2017-06-28] MEDS: SODIUM CHLORIDE 0.9% IV SCH (08:42)
[2017-06-28] MEDS: IRON SUCROSE IV SCH (08:42)
--- NOTE | 2017-06-28 11:25 | Cardiology Follow-Up ---
Subjective Subjective Date of Service: Jun 28, 2017. Pt evaluation today including: conversation w/ patient, physical exam, chart review, lab review, review of studies, review of inpatient medication list Additional Details: Pt seen and examined, states that he's feeling somewhat better today. Breathing has improved. Denies cp, palpitations, lightheadedness or dizziness. Tele reviewed: atrial flutter with variable AV block, occasional PVC's. Problem List Medical Problems: (1) CHF (congestive heart failure) Status: Acute (2) CHF (congestive heart failure) Status: Acute (3) Diffuse abdominal pain Status: Acute (4) Elevated troponin Status: Acute (5) Precordial chest pain Status: Acute (6) Renal cyst Status: Acute (7) Shortness of breath Status: Acute (8) Shortness of breath Status: Acute Review of Systems Constitutional: + weakness, + fatigue, No fever, No weight loss Eyes: No worsening of vision Respiratory: + cough (occasional), + shortness of breath, + dyspnea on exertion , + dyspnea at rest, No wheezing Cardiac: + edema, No chest pain, No PND, No palpitations Musculoskeletal: No joint pain, No muscle pain Male : No dysuria, No incontinence, No hematuria Neurologic: + weakness, No memory loss, No balance problems Psychiatric: No depression symptoms, No anxiety Heme: No abnormal bleeding/bruising Endo: + fatigue Objective Vital Signs Last Vital Signs Documentation Date Time Temp Pulse Resp B/P (MAP) Pulse Ox O2 Delivery O2 Flow Rate FiO2 06/28/17 08:07 100 110/72 (85) 06/28/17 08:00 Nasal Cannula 2.0 06/28/17 07:14 36.5 16 97 Physical Exam: General Appearance: WD/WN, no apparent distress Eyes: bilateral eyes normal inspection, bilateral eyes PERRL, bilateral eyes EOMI ENT: normal ENT inspection, hearing grossly normal, pharynx normal Neck: supple, no adenopathy, thyroid normal, no JVD, no carotid bruits, trachea midline Respiratory/Chest: chest non-tender, lungs clear, normal breath sounds, no respiratory distress, no accessory muscle use Cardiovascular: regular rate, rhythm, + tachycardia, + systolic murmur (3/6 mid to late ayesha, 2nd ics, rsb without radiation), + gallop/S4 Abdomen: normal bowel sounds, non tender, soft, no organomegaly, no pulsatile mass Extremities: non-tender, normal inspection, no calf tenderness, + pedal edema ( 1+ B/L LE pitting edema) 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 atrial flutter hx of paroxysmal atrial fibrillation rhythm now better visualized and in atrial flutter rates relatively well controlled at rest unfortunately, had an INR of 1.9 on 06/17/17, now therapeutic will likely require LIZZIE prior to cardioversion will tentatively plan for LIZZIE/CV on 06/30 2. [facility] cardiac cath 07/04 without significant obstruction doubt that has developed obstructive CAD in 1 year obviously, given renal function would like to avoid dye load will plan for Lexiscan nuclear stress on Thursday to rule out ischemia if ischemia is ruled out and patient remains symptomatic despite sinus rhythm then would likely benefit from BiV ICD placement lungs clear NPO after midnigh, no caffeine today or tomorrow cont to monitor on tele
--- NOTE | 2017-06-28 13:10 | Pulmonology Progress Note ---
Pulmonary Progress Note Date of Service Jun 28, 2017. Attending Dr. Erci Subjective This is a 62-year-old male that came in with shortness of breath and has had multiple readmissions for COPD. Previous PFTs are listed below. Repeat PFTs have been ordered and should be completed today around 1300 including DLCO. Patient was seen at bedside and sitting upright with no difficulty, distress or shortness of breath. He does report that he has dyspnea with exertion with minimal effort. He is having a cardiac workup completed which will include nuclear stress test tomorrow and LIZZIE with cardioversion on Thursday. patient reports he has a nonproductive cough. He has no hemoptysis or sputum production a significant. He denies nausea or vomiting. He has no acute complaints but rather is focused on several chronic complaints Had PFT done on 03/24/17: FEV1/FVC 77% preBD FEV1/FVC 74% postBD FVC 4.05 l Essentially normal spirometry Objective Vital Signs - as noted below Laboratory Data - as noted below Physical Exam: General - NAD Eyes - No icterus, gaze conjugate ENT - Mucosa moist, no lesions or candidiasis Neck - Supple, No JVD Lungs -bilaterally fine rales, faint expiratory wheezes. No rhonchi Heart -irregular, irregular, rate controlled Abdomen - Soft, NT, ND, BS present Extremities -bilateral lower extremity edema, pedal pulses intact Neuro - A&OX3 Assessment & Plan COPD/dyspnea with exertion * Repeat PFTs this afternoon and compared to prior * Continue with bronchodilators including Symbicort (takes Breo at home) * Continue with diuresis for cardiomyopathy/CHF * Should have continued workup (from a pulmonary standpoint) as an outpatient. * Do not see an indication for steroids * Would continue to diurese Thank you for including us in the care of this patient. Please refer to Dr. Eric's addendum for further recommendations Data Medications: Current Inpatient Medications Medications (Trade) Dose Ordered Sig/Larry Route Start Time Stop Time Status Last Admin Dose Admin Miscellaneous Information (Consult Glycemic Management Pharmacy) 1 ea UD PRN N/A 06/25/17 16:00 07/25/17 15:59 Insulin Aspart (novoLOG ASPART) SLIDING SCALE If C... ACHS SC 06/25/17 21:00 07/25/17 20:59 06/28/17 11:58 10 UNITS Glucose (Glucose 40% Gel) 15-30 GRAMS 15 GRAMS... UD PRN PO 06/25/17 16:00 07/25/17 15:59 Glucose (Glucose Chew Tab) 4-8 Tablets 4 Tabl... UD PRN PO 06/25/17 16:00 07/25/17 15:59 Dextrose (Dextrose 50% 50ML Syringe) 25-50ML OF 50% DW IV FOR... UD PRN IV 06/25/17 16:00 07/25/17 15:59 Glucagon (Glucagon Inj) 1 mg UD PRN SQ 06/25/17 16:00 07/25/17 15:59 Acetaminophen (Tylenol Tab) 650 mg Q4H PRN PO 06/25/17 16:00 07/25/17 15:59 Al Hydrox/Mg Hydrox/Simethicone (Maalox Max Susp) 15 ml Q4H PRN PO 06/25/17 16:00 07/25/17 15:59 Magnesium Hydroxide (Milk Of Magnesia Susp) 30 ml Q12H PRN PO 06/25/17 16:00 07/25/17 15:59 Miscellaneous (Iv Fluids Completed) 1 ea PRN PRN N/A 06/25/17 16:15 06/25/18 16:14 Albuterol (Ventolin Hfa Inhaler) 2 puffs Q4H PRN INH 06/25/17 16:15 07/25/17 16:14 Amiodarone HCl (Cordarone Tab) 200 mg BID PO 06/25/17 21:00 07/25/17 20:59 06/28/17 08:10 200 MG Aspirin (Ecotrin Tab) 81 mg QAM PO 06/26/17 09:00 07/26/17 08:59 06/28/17 08:10 81 MG Duloxetine HCl (Cymbalta Cap) 60 mg DAILY PO 06/26/17 09:00 07/26/17 08:59 06/28/17 08:10 60 MG Gabapentin (Neurontin Tab) 600 mg TID PO 06/25/17 21:00 07/25/17 20:59 06/28/17 08:10 600 MG Albuterol/ Ipratropium (Duoneb) 3 ml QID PRN INH 06/25/17 16:15 07/25/17 16:14 Isosorbide Dinitrate (Isordil Tab) 20 mg TID@0700,1200,1700 PO 06/25/17 17:00 07/25/17 16:59 06/28/17 11:56 20 MG Pantoprazole Sodium (Protonix Tab) 40 mg QAM PO 06/26/17 09:00 07/26/17 08:59 06/28/17 08:11 40 MG Rosuvastatin Calcium (Crestor Tab) 40 mg HS PO 06/25/17 21:00 07/25/17 20:59 06/27/17 21:03 40 MG Warfarin Sodium (Coumadin Tab) 5 mg DAILY@1600 PO 06/25/17 20:00 07/25/17 19:59 06/27/17 17:10 5 MG Miscellaneous Information (Order Awaiting Action) 1 ea QS N/A 06/26/17 00:00 07/26/17 00:00 Amlodipine Besylate (Norvasc Tab) 5 mg DAILY PO 06/27/17 09:00 07/26/17 08:59 06/28/17 08:10 5 MG Hydralazine HCl (Apresoline Tab) 25 mg TID PO 06/26/17 14:00 07/25/17 20:59 06/28/17 08:09 25 MG Metoprolol Succinate (Toprol Xl Tab) 50 mg QAM PO 06/27/17 09:00 07/27/17 08:59 06/28/17 08:11 50 MG Insulin Glargine (Lantus Solostar Pen) SEE PROTOCOL HS SC 06/27/17 21:00 07/27/17 20:59 06/27/17 21:12 15 UNITS Budesonide/ Formoterol Fumarate (Symbicort 160/ 4.5 Inh) 2 puffs BID INH 06/27/17 21:00 07/27/17 20:59 06/28/17 08:09 2 PUFFS Furosemide 10 mg/ Syringe 1 ml @ 4 mls/min CCC012 IV 06/28/17 07:00 07/27/17 06:59 06/28/17 05:48 4 MLS/MIN Iron Sucrose 250 mg/Sodium Chloride 112.5 ml @ 420 mls/hr DAILY IV 06/28/17 09:00 06/30/17 16:00 06/28/17 08:42 420 MLS/HR Vital Signs: Date Time Temp Pulse Resp B/P (MAP) Pulse Ox O2 Delivery O2 Flow Rate FiO2 06/28/17 11:54 89 106/75 (85) 06/28/17 08:07 100 110/72 (85) 06/28/17 08:00 Nasal Cannula 2.0 06/28/17 07:14 36.5 86 16 147/78 (101) 97 06/28/17 07:11 37.1 97 20 103/71 (82) 91 Room Air 06/28/17 04:32 36.5 90 18 125/82 (96) 94 Nasal Cannula 2.0 06/28/17 04:00 Nasal Cannula 2.0 06/28/17 00:00 Nasal Cannula 2.0 06/27/17 23:16 36.9 64 18 101/68 (79) 97 Nasal Cannula 1.0 06/27/17 20:00 Nasal Cannula 2.0 06/27/17 19:14 36.9 100 18 126/83 (97) 93 Nasal Cannula 1.0 06/27/17 16:01 Nasal Cannula 2.0 06/27/17 15:25 37.0 82 18 130/89 (103) 95 Nasal Cannula 1.0 06/27/17 13:15 80 119/75 (90) 97 Nasal Cannula 2.0 06/27/17 13:11 90 123/82 Laboratory Results: Last 24 Hours Test 06/27/17 16:07 06/27/17 19:21 06/27/17 20:34 06/28/17 05:28 Bedside Glucose 215 mg/dl 262 mg/dl Urine Color YELLOW Urine Appearance CLEAR Urine pH 5.0 Urine Specific [place] 1.010 Urine Protein 1+ Urine Glucose (UA) TRACE Urine Ketones NEG Urine Occult Blood NEG Urine Nitrite NEG Urine Bilirubin NEG Urine Urobilinogen NEG Urine Leukocyte Esterase NEG Urine WBC (Auto) 1-5 /hpf Urine RBC (Auto) 0-4 /hpf Urine Hyaline Casts (Auto) 1-5 /lpf Urine Epithelial Cells (Auto) 10-20 /lpf Urine Bacteria (Auto) NEG White Blood Count 4.78 K/uL Red Blood Count 3.08 M/uL Hemoglobin 8.4 g/dL Hematocrit 27.1 % Mean Corpuscular Volume 88.0 fL Mean Corpuscular Hemoglobin 27.3 pg Mean Corpuscular Hemoglobin Concent 31.0 g/dl Platelet Count 230 K/uL Mean Platelet Volume 8.7 fL Neutrophils (%) (Auto) 71.7 % Lymphocytes (%) (Auto) 13.0 % Monocytes (%) (Auto) 13.0 % Eosinophils (%) (Auto) 1.5 % Basophils (%) (Auto) 0.2 % Neutrophils # (Auto) 3.43 K/uL Lymphocytes # (Auto) 0.62 K/uL Monocytes # (Auto) 0.62 K/uL Eosinophils # (Auto) 0.07 K/uL Basophils # (Auto) 0.01 K/uL RDW Standard Deviation 52.8 fL RDW Coefficient of Variation 16.3 % Immature Granulocyte % (Auto) 0.6 % Immature Granulocyte # (Auto) 0.03 K/uL Polychromasia 1+ Hypochromasia PRESENT Prothrombin Time 31.1 SECONDS Prothromb Time International Ratio 3.0 Sodium Level 136 mmol/L Potassium Level 4.1 mmol/L Chloride Level 102 mmol/L Carbon Dioxide Level 26 mmol/L Anion Gap 8.0 mmol/L Blood Urea Nitrogen 57 mg/dl Creatinine 3.44 mg/dl Est Creatinine Clear Calc Drug Dose 27.0 ml/min Estimated GFR () 20.8 Estimated GFR (Non- 17.9 BUN/Creatinine Ratio 16.6 Random Glucose 112 mg/dl Calcium Level 8.3 mg/dl Total Bilirubin 0.4 mg/dl Aspartate Amino Transf (AST/SGOT) 15 U/L Alanine Aminotransferase (ALT/SGPT) 33 U/L Alkaline Phosphatase 105 U/L Total Protein 6.0 gm/dl Albumin 2.6 gm/dl Globulin 3.4 gm/dl Albumin/Globulin Ratio 0.8 Test 06/28/17 07:21 06/28/17 11:27 Bedside Glucose 124 mg/dl 168 mg/dl
--- NOTE | 2017-06-28 14:12 | Pharmacy Progress Note ---
Pharmacy Glycemic Short Note 2 Date of Service Jun 28, 2017. OUTPATIENT ANTIDIABETIC REGIMEN: * Lantus 45 units sq q PM * Novolog 7 units breakfast, 14 units with lunch & dinner * Total insulin = 80 units/day Test 06/27/17 16:07 06/27/17 20:34 06/28/17 05:28 06/28/17 07:21 Bedside Glucose 215 mg/dl (70-99) 262 mg/dl (70-99) 124 mg/dl (70-99) Random Glucose 112 mg/dl (70-99) Test 06/28/17 11:27 Bedside Glucose 168 mg/dl (70-99) ASSESSMENT: 06/28/17 * BSG did rise after lunch and dinner yesterday, will tighten CR, BSGs since tightening today look much better. * Pulmonary consult, no steroids indicated at this time 06/27/17 * Pt had hypoglycemia again prior to dinner and overnight at 0241 last night, despite large reductions in Lantus. Will further decrease dose and loosen CF and CR slightly. Will also adjust goal range to prevent further hypoglycemia. 06/26/17 * 62 year old T2DM admitted with CP and hyperglycemia. Pt started on home dose of Lantus yesterday and received CF and CR and 10 units IV regular insulin in ED * Pt with hypoglycemia last night, will decrease Lantus dose, as pt only required about 20 units of Lantus/day last admission in May. PLAN FOR INPATIENT GLYCEMIC CONTROL: * Basal insulin * Lantus SQ HS based on BSG * BSG < 120mg/dl - 0 units * BSG 120-180mg/dl - 8 units * BSG > 180mg/dl - 15 units * Bolus insulin * NovoLog per scale ACHS or Q6hrs while NPO * Goal Range: Low 120 mg/dL - High 150 mg/dL * Correction Factor: 25 mg/dL/unit * TIGHTEN: Nutritional / Prandial insulin per carb ratio of 1 unit per 8 grams CHO consumed PLAN FOR DISCHARGE: * A1c 9.5% on 05/27/17 - above goal, recommend titrating insulin doses per outpatient provider.
--- NOTE | 2017-06-28 15:56 | Progress Note ---
Internal Med Progress Note Date of Service: Jun 28, 2017. Provider Documentation: Subjective: Patient understands the there are planned procedures to help with his heart rhythm. No chest pain. No wheezing Physical Exam today General: no acute distress Lungs: CTABL, no wheezing Heart: irregular rhythm but rate controlled on exam, systolic murmur as prior exams Abdomen: truncal obesity, soft, nontender, nondistended, + bowel sounds Extremities: bilateral lower extremity edema ASSESSMENT & PLAN: Assessment and Plan: Multifactorial health problems for exertional dyspnea primarily, and chest discomfort secondary to exertional dyspnea Respiratory was admitted here from 05/23-06/10 w/ acute on chronic respiratory failure with PAM on CKD and retroperitoneal hemorrhage (complication of line placement) D-dimer is positive but no evidence of DVT so unlikely to have failed anticoagulation therapy and have thromboembolism c/w nebulizer treatments pulmonary service to investigate COPD possibility with PFTs as inpatient vs outpatient Cardiovascular Nonischemic cardiomyopathy NYHA Functional Class III Dyspnea Chronic left bundle branch block with QRS duration greater than 150 ms. Left ventricular ejection fraction ~35% Normovolemic. Moderate Aortic Stenosis Atrial fibrillation - on Coumadin for anticoagulation, and amiodarone for heart rhythm which is still in afib, have asked cardiology service whether patient may benefit from cardioversion Cardiology recommendations 06/26/17: Discontinue Carvedilol, Start Toprol XL 50 mg /day, Decrease amlodipine from 10 mg/day to 5 mg/day, Increase Hydralazine for additional blood pressure control, Continue oral nitrates, No ACEI/ARB/Entresto secondary to renal dysfunction troponins negative on this admission Cardiology recommendations: cont metoprolol, amiodarone and anticoagulation; Lexiscan nuclear stress on Thursday06/29/17 to rule out ischemia, if ischemia is ruled out and patient is not in an atrial arrhythmia then would likely benefit from BiV ICD placement, also cardiology tenatitively planing for LIZZIE prior to cardioversion of the atrial fibrillation/atrial flutter on Thursday06/30/17 Nephrology / Anemia Nephrology consult have been adjusting diuretics in regards to the renal function (PAM on CKD versus CKD progression) and anemia management Continue diuretics Diabetes type 2 on insulin and being followed by pharmacy glycemic control for insulin adjustments and to minimize risk of hypoglycemia DVT ppx: coumadin, INR is 3 on 06/28/17 Full Code Vital Signs: Date Time Temp Pulse Resp B/P (MAP) Pulse Ox O2 Delivery O2 Flow Rate FiO2 06/28/17 14:30 73 121/79 (93) 06/28/17 14:18 36.4 78 20 117/83 (94) 94 Nasal Cannula 1.0 06/28/17 12:00 Nasal Cannula 2.0 06/28/17 11:54 89 106/75 (85) 06/28/17 08:07 100 110/72 (85) 06/28/17 08:00 Nasal Cannula 2.0 06/28/17 07:14 36.5 86 16 147/78 (101) 97 06/28/17 07:11 37.1 97 20 103/71 (82) 91 Room Air 06/28/17 04:32 36.5 90 18 125/82 (96) 94 Nasal Cannula 2.0 06/28/17 04:00 Nasal Cannula 2.0 06/28/17 00:00 Nasal Cannula 2.0 06/27/17 23:16 36.9 64 18 101/68 (79) 97 Nasal Cannula 1.0 06/27/17 20:00 Nasal Cannula 2.0 06/27/17 19:14 36.9 100 18 126/83 (97) 93 Nasal Cannula 1.0 06/27/17 16:01 Nasal Cannula 2.0 Lab Results: Results Past 24 Hours Test 06/27/17 16:07 06/27/17 19:21 06/27/17 20:34 06/28/17 05:28 Range/Units Bedside Glucose 215 262 70-99 mg/dl Urine Color YELLOW Urine Appearance CLEAR CLEAR Urine pH 5.0 4.5-7.5 Urine Specific [place] 1.010 1.000-1.030 Urine Protein 1+ NEG Urine Glucose (UA) TRACE NEG Urine Ketones NEG NEG Urine Occult Blood NEG NEG Urine Nitrite NEG NEG Urine Bilirubin NEG NEG Urine Urobilinogen NEG NEG Urine Leukocyte Esterase NEG NEG Urine WBC (Auto) 1-5 0-5 /hpf Urine RBC (Auto) 0-4 0-4 /hpf Urine Hyaline Casts (Auto) 1-5 0-5 /lpf Urine Epithelial Cells (Auto) 10-20 0-5 /lpf Urine Bacteria (Auto) NEG NEG White Blood Count 4.78 4.8-10.8 K/uL Red Blood Count 3.08 4.7-6.1 M/uL Hemoglobin 8.4 14.0-18.0 g/dL Hematocrit 27.1 42-52 % Mean Corpuscular Volume 88.0 80-100 fL Mean Corpuscular Hemoglobin 27.3 25-34 pg Mean Corpuscular Hemoglobin Concent 31.0 32-36 g/dl Platelet Count 230 130-400 K/uL Mean Platelet Volume 8.7 7.4-10.4 fL Neutrophils (%) (Auto) 71.7 % Lymphocytes (%) (Auto) 13.0 % Monocytes (%) (Auto) 13.0 % Eosinophils (%) (Auto) 1.5 % Basophils (%) (Auto) 0.2 % Neutrophils # (Auto) 3.43 1.4-6.5 K/uL Lymphocytes # (Auto) 0.62 1.2-3.4 K/uL Monocytes # (Auto) 0.62 0.11-0.59 K/uL Eosinophils # (Auto) 0.07 0-0.5 K/uL Basophils # (Auto) 0.01 0-0.2 K/uL RDW Standard Deviation 52.8 36.4-46.3 fL RDW Coefficient of Variation 16.3 11.5-14.5 % Immature Granulocyte % (Auto) 0.6 % Immature Granulocyte # (Auto) 0.03 0.00-0.02 K/uL Polychromasia 1+ Hypochromasia PRESENT Prothrombin Time 31.1 9.0-12.0 SECONDS Prothromb Time International Ratio 3.0 0.9-1.1 Sodium Level 136 136-145 mmol/L Potassium Level 4.1 3.5-5.1 mmol/L Chloride Level 102 98-107 mmol/L Carbon Dioxide Level 26 21-32 mmol/L Anion Gap 8.0 3-11 mmol/L Blood Urea Nitrogen 57 7-18 mg/dl Creatinine 3.44 0.60-1.40 mg/dl Est Creatinine Clear Calc Drug Dose 27.0 ml/min Estimated GFR () 20.8 Estimated GFR (Non- 17.9 BUN/Creatinine Ratio 16.6 10-20 Random Glucose 112 70-99 mg/dl Calcium Level 8.3 8.5-10.1 mg/dl Total Bilirubin 0.4 0.2-1 mg/dl Aspartate Amino Transf (AST/SGOT) 15 15-37 U/L Alanine Aminotransferase (ALT/SGPT) 33 12-78 U/L Alkaline Phosphatase 105 45-117 U/L Total Protein 6.0 6.4-8.2 gm/dl Albumin 2.6 3.4-5.0 gm/dl Globulin 3.4 2.5-4.0 gm/dl Albumin/Globulin Ratio 0.8 0.9-2 Test 06/28/17 07:21 06/28/17 11:27 Range/Units Bedside Glucose 124 168 70-99 mg/dl
[2017-06-28] MEDS: WARFARIN SOD 5 MG TAB PO SCH (16:47)
[2017-06-28] MEDS: ROSUVASTATIN CALCIUM 20 MG TAB PO SCH (20:57)
[2017-06-28] MEDS: INSULIN GLARGINE SOLOSTAR 100 UNITS/ML 3 ML PEN SC SCH (21:00)
[2017-06-29] VITALS (16 sets, daily range): BP systolic 98–130; BP diastolic 61–88; PULSE 65–107; TEMP 36.6–36.8; O2SAT 86–94
[2017-06-29] MEDS: FUROSEMIDE INJ 10 MG in SYRINGE 0 ML IV SCH ×2 (05:56→13:55)
[2017-06-29] MEDS: ISOSORBIDE DINITRATE 10 MG TAB PO SCH ×3 (05:57→17:03)
--- NOTE | 2017-06-29 06:42 | Nephrology Progress Note ---
Nephrology Progress Note Date of Service: Jun 29, 2017. Subjective 62 yo male with creatinine in the low 3s with recent hospitilization requiring dialysis and presents this time with sob. attempted aggressive diuresis and creatinine did not tolerate it. pts breathing is improving compared to admission. has edema in the feet. currently npo for cardiac studies today. Objective Date Time Temp Pulse Resp B/P (MAP) Pulse Ox O2 Delivery O2 Flow Rate FiO2 06/29/17 05:54 102 128/72 (90) 06/29/17 04:13 36.8 74 16 122/79 (93) 93 Room Air 06/29/17 04:00 Nasal Cannula 2.0 06/29/17 00:05 Nasal Cannula 2.0 06/28/17 23:30 36.7 80 18 131/78 (95) 91 Room Air 06/28/17 20:05 Nasal Cannula 2.0 06/28/17 19:58 36.8 77 16 120/80 (93) 94 Nasal Cannula 2.0 06/28/17 16:45 78 103/63 (76) 06/28/17 16:00 Nasal Cannula 2.0 06/28/17 14:30 73 121/79 (93) 06/28/17 14:18 36.4 78 20 117/83 (94) 94 Nasal Cannula 1.0 06/28/17 12:00 Nasal Cannula 2.0 06/28/17 11:54 89 106/75 (85) 06/28/17 08:07 100 110/72 (85) 06/28/17 08:00 Nasal Cannula 2.0 06/28/17 07:14 36.5 86 16 147/78 (101) 97 06/28/17 07:11 37.1 97 20 103/71 (82) 91 Room Air Physical Exam: General-aaox3 Eyes-no scleral icterus ENT-mmm Neck-supple Lungs-cta Heart-3/6 systolic murmur, irregular Abdomen-bs+ s/nt/nd Extremities-+1 edema in the feet Neuro-nonfocal Current Inpatient Medications Medications (Trade) Dose Ordered Sig/Larry Route Start Time Stop Time Status Last Admin Dose Admin Miscellaneous Information (Consult Glycemic Management Pharmacy) 1 ea UD PRN N/A 06/25/17 16:00 07/25/17 15:59 Insulin Aspart (novoLOG ASPART) SLIDING SCALE If C... ACHS SC 06/25/17 21:00 07/25/17 20:59 06/28/17 21:00 1 UNITS Glucose (Glucose 40% Gel) 15-30 GRAMS 15 GRAMS... UD PRN PO 06/25/17 16:00 07/25/17 15:59 Glucose (Glucose Chew Tab) 4-8 Tablets 4 Tabl... UD PRN PO 06/25/17 16:00 07/25/17 15:59 Dextrose (Dextrose 50% 50ML Syringe) 25-50ML OF 50% DW IV FOR... UD PRN IV 06/25/17 16:00 07/25/17 15:59 Glucagon (Glucagon Inj) 1 mg UD PRN SQ 06/25/17 16:00 07/25/17 15:59 Acetaminophen (Tylenol Tab) 650 mg Q4H PRN PO 06/25/17 16:00 07/25/17 15:59 Al Hydrox/Mg Hydrox/Simethicone (Maalox Max Susp) 15 ml Q4H PRN PO 06/25/17 16:00 07/25/17 15:59 Magnesium Hydroxide (Milk Of Magnesia Susp) 30 ml Q12H PRN PO 06/25/17 16:00 07/25/17 15:59 Miscellaneous (Iv Fluids Completed) 1 ea PRN PRN N/A 06/25/17 16:15 06/25/18 16:14 Albuterol (Ventolin Hfa Inhaler) 2 puffs Q4H PRN INH 06/25/17 16:15 07/25/17 16:14 Amiodarone HCl (Cordarone Tab) 200 mg BID PO 06/25/17 21:00 07/25/17 20:59 06/28/17 20:57 200 MG Aspirin (Ecotrin Tab) 81 mg QAM PO 06/26/17 09:00 07/26/17 08:59 06/28/17 08:10 81 MG Duloxetine HCl (Cymbalta Cap) 60 mg DAILY PO 06/26/17 09:00 07/26/17 08:59 06/28/17 08:10 60 MG Gabapentin (Neurontin Tab) 600 mg TID PO 06/25/17 21:00 07/25/17 20:59 06/28/17 20:58 600 MG Albuterol/ Ipratropium (Duoneb) 3 ml QID PRN INH 06/25/17 16:15 07/25/17 16:14 Isosorbide Dinitrate (Isordil Tab) 20 mg TID@0700,1200,1700 PO 06/25/17 17:00 07/25/17 16:59 06/29/17 05:57 20 MG Pantoprazole Sodium (Protonix Tab) 40 mg QAM PO 06/26/17 09:00 07/26/17 08:59 06/28/17 08:11 40 MG Rosuvastatin Calcium (Crestor Tab) 40 mg HS PO 06/25/17 21:00 07/25/17 20:59 06/28/17 20:57 40 MG Warfarin Sodium (Coumadin Tab) 5 mg DAILY@1600 PO 06/25/17 20:00 07/25/17 19:59 06/28/17 16:47 5 MG Miscellaneous Information (Order Awaiting Action) 1 ea QS N/A 06/26/17 00:00 07/26/17 00:00 Amlodipine Besylate (Norvasc Tab) 5 mg DAILY PO 06/27/17 09:00 07/26/17 08:59 06/28/17 08:10 5 MG Hydralazine HCl (Apresoline Tab) 25 mg TID PO 06/26/17 14:00 07/25/17 20:59 06/28/17 20:58 25 MG Metoprolol Succinate (Toprol Xl Tab) 50 mg QAM PO 06/27/17 09:00 07/27/17 08:59 06/28/17 08:11 50 MG Insulin Glargine (Lantus Solostar Pen) SEE PROTOCOL HS SC 06/27/17 21:00 07/27/17 20:59 06/28/17 21:00 8 UNITS Budesonide/ Formoterol Fumarate (Symbicort 160/ 4.5 Inh) 2 puffs BID INH 06/27/17 21:00 07/27/17 20:59 06/28/17 20:55 2 PUFFS Furosemide 10 mg/ Syringe 1 ml @ 4 mls/min [id number] IV 06/28/17 07:00 07/27/17 06:59 06/29/17 05:56 4 MLS/MIN Iron Sucrose 250 mg/Sodium Chloride 112.5 ml @ 420 mls/hr DAILY IV 06/28/17 09:00 06/30/17 16:00 06/28/17 08:42 420 MLS/HR Last 24 Hours Test 06/28/17 07:21 06/28/17 11:27 06/28/17 16:09 06/28/17 20:36 Bedside Glucose 124 mg/dl 168 mg/dl 194 mg/dl 163 mg/dl Test 06/29/17 04:44 Assessment & Plan ry on CKD stage 2-[id number]-creatinine went from 3 to 3.6 and at last check was 3.4. labs pending for this am. on lower dose of diuretic to help with edema in the feet. feel sob may be more cardiac in nature as suppose to volume overload. no changes from renal perspective. Iron deficiency anemia-hg in the 8s. on iv venofer and had tsat of 10%.
[2017-06-29 06:55] LABS: BASO % 0.4 %; BASO ABS # 0.02 K/uL (0-0.2); EOS % 0.8 %; EOS ABS # 0.04 K/uL (0-0.5); HEMATOCRIT 29.1 % (42-52); IG# 0.04 K/uL (0.00-0.02); LYMPH ABS # 0.63 K/uL (1.2-3.4); MEAN CELL VOLUME 88.2 fL (80-100); MEAN CORPUSCULAR HEMOGLOBIN 27.3 pg (25-34); MEAN CORPUSCULAR HGB CONC 30.9 g/dl (32-36); MEAN PLATELET VOLUME 8.5 fL (7.4-10.4); MONO % 11.6 %; MONO ABS # 0.61 K/uL (0.11-0.59); NEUT % 74.4 %; NEUT ABS # 3.92 K/uL (1.4-6.5); PLATELET COUNT 223 K/uL (130-400); RED CELL DISTRIBUTION WIDTH CV 16.4 % (11.5-14.5); RED CELL DISTRIBUTION WIDTH SD 53.5 fL (36.4-46.3); WHITE BLOOD COUNT 5.26 K/uL (4.8-10.8)
[2017-06-29 07:04] LABS: INR 2.7 (0.9-1.1)
[2017-06-29 07:12] LABS: ALBUMIN 2.8 gm/dl (3.4-5.0); CALCIUM 8.9 mg/dl (8.5-10.1); CREATININE 3.46 mg/dl (0.60-1.40); POTASSIUM 4.2 mmol/L (3.5-5.1)
[2017-06-29 07:15] LABS: TOTAL PROTEIN 6.4 gm/dl (6.4-8.2)
[2017-06-29] MEDS: BUDESONIDE/FORMOTEROL FUMARATE 160/4.5 60 PUFFS/INHALER INH SCH ×2 (07:43→20:33)
[2017-06-29] MEDS: INSULIN ASPART 100 UNITS/ML 3 ML PEN SC SCH ×4 (07:48→20:41)
[2017-06-29] MEDS: ASPIRIN 81 MG ECTAB PO SCH (07:49)
[2017-06-29] MEDS: DULOXETINE HCL 60 MG CAP PO SCH (07:49)
[2017-06-29] MEDS: PANTOprazole SOD 40 MG TAB PO SCH (07:49)
[2017-06-29] MEDS: AMLODIPINE BESYLATE 5 MG TAB PO SCH (07:49)
[2017-06-29] MEDS: METOPROLOL SUCC 50MG EXT REL TAB PO SCH (07:49)
[2017-06-29] MEDS: AMIODARONE 200 MG TAB PO SCH ×2 (07:50→21:05)
[2017-06-29] MEDS: GABAPENTIN 600 MG TAB PO SCH ×3 (07:53→20:35)
[2017-06-29] MEDS ORDERED: REGADENOSON 0.4 MG/5 ML SYR ONE (08:12)
--- NOTE | 2017-06-29 10:18 | Clinical Documentation Query ---
CLINICAL DOCUMENTATION QUERY 62 yo male admitted with chest pain has an initial SPO2 of 88% and complains of SOB and TESFAYE. Patient uses O2 at home and recently obtained a CPAP for obstructive sleep apnea. In your clinical opinion is this patient being managed for: (x ) Acute and chronic respiratory failure with hypoxia ( ) Not Agree ( ) Other explanation of clinical findings (Please Explain) ( ) Unable to determine (Please Define) ( ) Need to Discuss The medical record reflects the following clinical findings, treatment, and risk factors. Clinical Indicators: As above Treatment: O2, Cardiology and Pulmonary consults Risk Factors: COPD, hx PNA, A-fib, CHF Please clarify and document your clinical opinion in the progress notes and discharge summary. Terms such as "probable", "suspected", "likely", "questionable", "possible", or "still to be ruled out" are acceptable. IF IN AGREEMENT, YOU MUST DOCUMENT ABOVE DIAGNOSTIC STATEMENT IN DAILY PROGRESS NOTES AND DISCHARGE SUMMARY. This document is not part of the patient's record. Thank You, Maine Khan RN [phone]
[2017-06-29] MEDS: IRON SUCROSE IV SCH (10:53)
[2017-06-29] MEDS: SODIUM CHLORIDE 0.9% IV SCH (10:53)
--- NOTE | 2017-06-29 11:52 | Pharmacy Progress Note ---
Pharmacy Glycemic Short Note 2 Date of Service Jun 29, 2017. OUTPATIENT ANTIDIABETIC REGIMEN: * Lantus 45 units sq q PM * Novolog 7 units breakfast, 14 units with lunch & dinner * Total insulin = 80 units/day * Pt had a low on 06/26/17 when this was continued inpatient ASSESSMENT: * 62yo T2DM male with sub-adequate outpatient control per recent A1c. Most likely non-compliance with outpatient insulin regimen as Pt had a low when outpatient regimen was continued inpatient and pt currently requiring significantly less insulin/day as compared to outpatient regimen. * Patient is currently receiving an average of ~35 units of insulin per day * 8 units of basal insulin * 27 units of prandial/correctional insulin * BSGs ranging 124 - 194 over the past 24hrs * Changes needed to SQ basal bolus insulin regimen: * AM Fasting BSG = 129 mg/dl . This is in goal range. No changes needed to basal insulin dosing. * Total daily dose more weighted towards prandial insulin, but BSGs in goal range. Likely, post-prandial hyperglycemia is main problem for patient rather than basal insulin deficiency/resistance. * Post-prandial BSGs are in range, no change needed to CF/CR PLAN FOR INPATIENT GLYCEMIC CONTROL: * Basal insulin * Lantus 8 units SQ HS * Bolus insulin * NovoLog per scale ACHS or Q6hrs while NPO * Goal Range: Low 120 mg/dL - High 150 mg/dL * Correction Factor: 25 mg/dL/unit * Nutritional / Prandial insulin per carb ratio of 1 unit per 8 grams CHO consumed PLAN FOR DISCHARGE: * A1c 9.5% on 05/27/17 - above goal, recommend titrating insulin doses per outpatient provider.
[2017-06-29] MEDS ORDERED: AMIODARONE IV BOLUS / DRIP IV STA (15:10)
[2017-06-29] MEDS ORDERED: 0.2 MICRON FILTER SET 1 EA IV SCH (15:30)
[2017-06-29] MEDS ORDERED: AMIODARONE / D5W 100 ML PHARMACY PREPARED IV SCH ×2 (15:30)
[2017-06-29] MEDS ORDERED: AMIODARONE / D5W 200 ML IV SCH (15:45)
[2017-06-29] MEDS: WARFARIN SOD 5 MG TAB PO SCH (16:29)
--- NOTE | 2017-06-29 18:09 | Cardiology Follow-Up ---
Subjective General Date of Service: Jun 29, 2017. Chief Complaint: Shortness of breath Pt evaluation today including: conversation w/ patient, physical exam History of Present Illness The patient is a 62 year old male seen in cardiology follow up pre/ during/ post nuclear stress test. Patient feels shortness of breath has improved to some degree , but still present. Allergies Coded Allergies: No Known Allergies (Verified , 05/23/17) Social History Smoking Status: Never Smoker Hx Tobacco Use In Past Year?: No Hx Alcohol Use - Type And Amou: No Hx Substance Use - Type And Am: No Problem List Medical Problems: (1) CHF (congestive heart failure) Status: Acute (2) CHF (congestive heart failure) Status: Acute (3) Diffuse abdominal pain Status: Acute (4) Elevated troponin Status: Acute (5) Precordial chest pain Status: Acute (6) Renal cyst Status: Acute (7) Shortness of breath Status: Acute (8) Shortness of breath Status: Acute Physical Exam Vital Signs Last Vital Signs Documentation Date Time Temp Pulse Resp B/P (MAP) Pulse Ox O2 Delivery O2 Flow Rate FiO2 06/29/17 17:08 65 122/88 (99) 06/29/17 16:14 91 Nasal Cannula 3.0 06/29/17 15:47 36.6 06/29/17 15:06 20 Physical Exam Constitutional: Level of Distress: NAD Neck: supple Lungs: Auscultation: pertinent finding (mildly decreased BS at baseline) Cardiovascular: Heart Auscultation: RRR, no murmurs Extremities: no edema Neurologic: Gait & Station: pertinent finding (no focl neuro deficits ) Assessment and Plan Assessment and Plan Repeat EKG performed today post pharmacologic nuclear stress test, 06/29/17 5019: Sinus rhythm at 71 bpm, with long first-degree AV block, FL interval 260 ms, left bundle branch block, QRS duration 212 ms When compared to the prior tracing of 06/28/2017, sinus rhythm has replaced atrial flutter. Pharmacologic nuclear stress test performed today having been supervised, interpreted by the undersigned: Normal stress and resting perfusion, moderate to severe global left ventricular hypokinesis, calculated LVEF 30% Impression: 62-year-old male 1. Acute on chronic systolic heart failure, volume status improved 2. Prior history of nonischemic cardiomyopathy, mild coronary atherosclerosis by cardiac catheterization 3/15/17, nuclear stress test is performed today suggests ongoing nonischemic cardiomyopathy rather than new obstructive CAD with high-quality perfusion images noted today. 3. Chronic kidney disease, creatinine 3.4 today, has been his recent baseline ever since acute kidney injury that took place during hospital stay from April to May, 4. Paroxysmal atrial flutter 5. History of retroperitoneal bleed last, now back on anticoagulation, hemoglobin stable Plan: The patient returned to the floor post stress test, it is been noted that there was a change in his rhythm, EKG reveals what appears to be sinus rhythm with long first-degree AV block and left bundle branch block with wide QRS complex. At this time we will continue his oral amiodarone, I have also started an amiodarone infusion for repeat bolus, to help him try to maintain sinus rhythm with hopes that this will help ease his exertional shortness of breath. Ultimately, I feel patient would benefit from cardiac recent conization therapy and given his LVEF of less than 35%, he would also benefit from AICD implantation for primary prevention of sudden cardiac . Continue current dose of IV furosemide for now, 10 mg IV twice daily, noting 2.3 L of urine output yesterday. His weight has trended down on the standing scale today. Laboratory Results Last 24 Hours Test 06/28/17 20:36 06/29/17 06:40 06/29/17 07:24 06/29/17 11:08 Bedside Glucose 163 mg/dl 129 mg/dl 127 mg/dl White Blood Count 5.26 K/uL Red Blood Count 3.30 M/uL Hemoglobin 9.0 g/dL Hematocrit 29.1 % Mean Corpuscular Volume 88.2 fL Mean Corpuscular Hemoglobin 27.3 pg Mean Corpuscular Hemoglobin Concent 30.9 g/dl Platelet Count 223 K/uL Mean Platelet Volume 8.5 fL Neutrophils (%) (Auto) 74.4 % Lymphocytes (%) (Auto) 12.0 % Monocytes (%) (Auto) 11.6 % Eosinophils (%) (Auto) 0.8 % Basophils (%) (Auto) 0.4 % Neutrophils # (Auto) 3.92 K/uL Lymphocytes # (Auto) 0.63 K/uL Monocytes # (Auto) 0.61 K/uL Eosinophils # (Auto) 0.04 K/uL Basophils # (Auto) 0.02 K/uL RDW Standard Deviation 53.5 fL RDW Coefficient of Variation 16.4 % Immature Granulocyte % (Auto) 0.8 % Immature Granulocyte # (Auto) 0.04 K/uL Prothrombin Time 27.8 SECONDS Prothromb Time International Ratio 2.7 Sodium Level 137 mmol/L Potassium Level 4.2 mmol/L Chloride Level 101 mmol/L Carbon Dioxide Level 29 mmol/L Anion Gap 7.0 mmol/L Blood Urea Nitrogen 55 mg/dl Creatinine 3.46 mg/dl Est Creatinine Clear Calc Drug Dose 26.7 ml/min Estimated GFR () 20.6 Estimated GFR (Non- 17.8 BUN/Creatinine Ratio 15.8 Random Glucose 120 mg/dl Calcium Level 8.9 mg/dl Total Bilirubin 0.5 mg/dl Aspartate Amino Transf (AST/SGOT) 14 U/L Alanine Aminotransferase (ALT/SGPT) 29 U/L Alkaline Phosphatase 106 U/L Total Protein 6.4 gm/dl Albumin 2.8 gm/dl Globulin 3.6 gm/dl Albumin/Globulin Ratio 0.8 Test 06/29/17 16:02 Bedside Glucose 160 mg/dl
--- NOTE | 2017-06-29 18:30 | MYOCARDIAL PERFUSION SCAN ---
LEXISCAN PHARMACOLOGIC NUCLEAR STRESS TEST REPORT ORDERING PROVIDER: Gerald Mittal DO INTERPRETING PROVIDER: Parish Sethi DO INDICATION: Congestive heart failure, evaluate for underlying myocardial ischemia. TECHNIQUE: For the stress portion of the study, 33 mCi of Technetium 99 m Cardiolite IV was injected at 08:05 am on 06/29/2017. Thirty minutes following the injection, imaging of the heart was performed in multiple projections. For the rest portion of the study, 11 mCi of Technetium 99 m Cardiolite was injected IV at 09:50 am. One hour following the injection, imaging of the heart was performed in the same projections. STRESS STUDY: The patient received an injection of 0.4 mg of Lexiscan intravenously for the stress portion of the study. The patient described transient chest tightness that resolved early in the post-pharmacologic stress recovery interval. The heart rate response to pharmacologic stress was appropriate. The blood pressure response to pharmacologic stress was appropriate. The resting heart rate of 85 beats per minute rody to a maximum heart rate of 93 beats per minute. This value represents 59% of the maximal age predicted heart rate. The resting blood pressure of 114/84 mmHg rody to a maximum blood pressure of 114/84 mmHg, the lowest blood pressure was 104/67 mmHg. The stress test was terminated at the end of the pharmacologic protocol. Resting EKG revealed atrial flutter with variable conduction at 82 beats per minute, with left bundle branch block, and occasional PVCs. The stress EKG remained unchanged with rate controlled atrial flutter and occasional PVCs with left bundle branch block. The EKG was nondiagnostic for ischemia given the underlying left bundle branch block. FINDINGS: Stress SPECT images reveal homogenous tracer distribution throughout the myocardium. The resting images are unchanged. The left ventricular chamber size was moderately dilated both at stress and at rest. Gated SPECT imaging reveals [id number] global left ventricular hypokinesis with calculated left ventricular ejection fraction of 30% by gated SPECT. CONCLUSION: The Lexiscan nuclear cardiac stress test is negative for ischemia. Left bundle branch block was noted throughout study. Findings are consistent with nonischemic cardiomyopathy. MTDD
--- NOTE | 2017-06-29 18:50 | Progress Note ---
Internal Med Progress Note Date of Service: Jun 29, 2017. Provider Documentation: Subjective: Patient returned from stress and noted to have changed in heart rhythm as sinus rhythm with long first-degree AV block and left bundle branch block with wide QRS complex. Physical Exam today General: no acute distress Lungs: CTABL, no wheezing Heart: exam with rhythm more regular, systolic murmur as prior exams Abdomen: truncal obesity, soft, nontender, nondistended, + bowel sounds Extremities: bilateral lower extremity edema especially around pedal area and ankles ASSESSMENT & PLAN: Assessment and Plan: Multifactorial health problems for exertional dyspnea primarily, and chest discomfort secondary to exertional dyspnea Respiratory: Acute and chronic respiratory failure with hypoxia was admitted here from 05/23-06/10 w/ acute on chronic respiratory failure with PAM on CKD and retroperitoneal hemorrhage (complication of line placement) D-dimer is positive but no evidence of DVT so unlikely to have failed anticoagulation therapy and have thromboembolism c/w nebulizer/inhaler treatments pulmonary service to investigate COPD possibility and follow up PFT studies Cardiovascular Nonischemic cardiomyopathy - Lexiscan nuclear stress 06/29/17, pending full report - cardiology consult interprets as nonischemic cardiomyopathy Moderate Aortic Stenosis Atrial fibrillation:on Coumadin for anticoagulation, and oral amiodarone for atrial fibrillation heart rhythm from home Cardiology had changed patient's rate control home medication from carvedilol to metoprolol succinate Then rhythm was more like Paroxysmal atrial flutter More recently today after Lexiscan nuclear stress 06/29/17, pending full report - cardiology consult interprets as nonischemic cardiomyopathy, then noted to have changed in heart rhythm as sinus rhythm with long first-degree AV block and left bundle branch block with wide QRS complex, now on amiodarone IV continue to follow up cardiology in regards to overall plan whether AICD will be needed HTN: amlodipine, hydralazine, imdur Nephrology / Anemia Nephrology consult have been adjusting diuretics in regards to the renal function (PAM on CKD versus CKD progression) and anemia management On IV Lasix and IV Venofer Diabetes type 2 on insulin and being followed by pharmacy glycemic control for insulin adjustments and to minimize risk of hypoglycemia DVT ppx: coumadin, INR is 2.7 on 06/28/17 Full Code Vital Signs: Date Time Temp Pulse Resp B/P (MAP) Pulse Ox O2 Delivery O2 Flow Rate FiO2 06/29/17 17:08 65 122/88 (99) 06/29/17 16:30 71 129/79 (96) 06/29/17 16:14 67 130/80 (97) 91 Nasal Cannula 3.0 06/29/17 15:47 36.6 97 127/87 (100) 92 Room Air 06/29/17 15:06 36.7 70 20 123/79 (94) 94 Nasal Cannula 2.0 06/29/17 12:00 92 Nasal Cannula 2.0 06/29/17 11:30 36.6 69 20 102/64 (77) 92 06/29/17 10:55 75 86 06/29/17 08:00 94 Nasal Cannula 2.0 06/29/17 07:01 36.6 107 18 113/77 (89) 94 Room Air 06/29/17 05:54 102 128/72 (90) 06/29/17 04:13 36.8 74 16 122/79 (93) 93 Room Air 06/29/17 04:00 Nasal Cannula 2.0 06/29/17 00:05 Nasal Cannula 2.0 06/28/17 23:30 36.7 80 18 131/78 (95) 91 Room Air 06/28/17 20:05 Nasal Cannula 2.0 06/28/17 19:58 36.8 77 16 120/80 (93) 94 Nasal Cannula 2.0 Lab Results: Results Past 24 Hours Test 06/28/17 20:36 06/29/17 06:40 06/29/17 07:24 06/29/17 11:08 Range/Units Bedside Glucose 163 129 127 70-99 mg/dl White Blood Count 5.26 4.8-10.8 K/uL Red Blood Count 3.30 4.7-6.1 M/uL Hemoglobin 9.0 14.0-18.0 g/dL Hematocrit 29.1 42-52 % Mean Corpuscular Volume 88.2 80-100 fL Mean Corpuscular Hemoglobin 27.3 25-34 pg Mean Corpuscular Hemoglobin Concent 30.9 32-36 g/dl Platelet Count 223 130-400 K/uL Mean Platelet Volume 8.5 7.4-10.4 fL Neutrophils (%) (Auto) 74.4 % Lymphocytes (%) (Auto) 12.0 % Monocytes (%) (Auto) 11.6 % Eosinophils (%) (Auto) 0.8 % Basophils (%) (Auto) 0.4 % Neutrophils # (Auto) 3.92 1.4-6.5 K/uL Lymphocytes # (Auto) 0.63 1.2-3.4 K/uL Monocytes # (Auto) 0.61 0.11-0.59 K/uL Eosinophils # (Auto) 0.04 0-0.5 K/uL Basophils # (Auto) 0.02 0-0.2 K/uL RDW Standard Deviation 53.5 36.4-46.3 fL RDW Coefficient of Variation 16.4 11.5-14.5 % Immature Granulocyte % (Auto) 0.8 % Immature Granulocyte # (Auto) 0.04 0.00-0.02 K/uL Prothrombin Time 27.8 9.0-12.0 SECONDS Prothromb Time International Ratio 2.7 0.9-1.1 Sodium Level 137 136-145 mmol/L Potassium Level 4.2 3.5-5.1 mmol/L Chloride Level 101 98-107 mmol/L Carbon Dioxide Level 29 21-32 mmol/L Anion Gap 7.0 3-11 mmol/L Blood Urea Nitrogen 55 7-18 mg/dl Creatinine 3.46 0.60-1.40 mg/dl Est Creatinine Clear Calc Drug Dose 26.7 ml/min Estimated GFR () 20.6 Estimated GFR (Non- 17.8 BUN/Creatinine Ratio 15.8 10-20 Random Glucose 120 70-99 mg/dl Calcium Level 8.9 8.5-10.1 mg/dl Total Bilirubin 0.5 0.2-1 mg/dl Aspartate Amino Transf (AST/SGOT) 14 15-37 U/L Alanine Aminotransferase (ALT/SGPT) 29 12-78 U/L Alkaline Phosphatase 106 45-117 U/L Total Protein 6.4 6.4-8.2 gm/dl Albumin 2.8 3.4-5.0 gm/dl Globulin 3.6 2.5-4.0 gm/dl Albumin/Globulin Ratio 0.8 0.9-2 Test 06/29/17 16:02 Range/Units Bedside Glucose 160 70-99 mg/dl
[2017-06-29] MEDS: ROSUVASTATIN CALCIUM 20 MG TAB PO SCH (20:34)
[2017-06-29] MEDS: INSULIN GLARGINE SOLOSTAR 100 UNITS/ML 3 ML PEN SC SCH (20:42)
[2017-06-29] MEDS: AMIODARONE / D5W 200 ML IV SCH (21:46)
[2017-06-30] MEDS: AMIODARONE / D5W 200 ML IV SCH (00:44)
[2017-06-30 03:57] VITALS: BP 111/65; PULSE 69; TEMP 37.1; O2SAT 90
[2017-06-30 05:47] LABS: HEMATOCRIT 27.9 % (42-52); HEMOGLOBIN 8.9 g/dL (14.0-18.0); MEAN CELL VOLUME 87.2 fL (80-100); MEAN CORPUSCULAR HEMOGLOBIN 27.8 pg (25-34); MEAN CORPUSCULAR HGB CONC 31.9 g/dl (32-36); MEAN PLATELET VOLUME 8.5 fL (7.4-10.4); PLATELET COUNT 213 K/uL (130-400); RED CELL DISTRIBUTION WIDTH CV 16.7 % (11.5-14.5); RED CELL DISTRIBUTION WIDTH SD 52.8 fL (36.4-46.3); WHITE BLOOD COUNT 6.23 K/uL (4.8-10.8)
[2017-06-30 05:57] LABS: INR 2.8 (0.9-1.1)
[2017-06-30 06:22] LABS: ALBUMIN 2.8 gm/dl (3.4-5.0); CALCIUM 8.7 mg/dl (8.5-10.1); CREATININE 3.37 mg/dl (0.60-1.40)
[2017-06-30 06:25] LABS: TOTAL PROTEIN 6.4 gm/dl (6.4-8.2)
[2017-06-30] MEDS: ISOSORBIDE DINITRATE 10 MG TAB PO SCH ×3 (06:27→17:25)
--- NOTE | 2017-06-30 06:35 | Nephrology Progress Note ---
Nephrology Progress Note Date of Service: Jun 30, 2017. Subjective 62 yo male with creatinine in the low 3s who presents with sob. pt being evaluated by cardiology. underwent stress test yesterday. pt oob to chair. breathing slowly improving. Objective Date Time Temp Pulse Resp B/P (MAP) Pulse Ox O2 Delivery O2 Flow Rate FiO2 06/30/17 04:00 Nasal Cannula 2.0 06/30/17 03:57 37.1 69 20 111/65 (80) 90 Nasal Cannula 3.0 06/29/17 23:59 Nasal Cannula 2.0 06/29/17 23:56 36.8 66 19 108/61 (77) 90 Nasal Cannula 2.0 06/29/17 20:43 65 115/71 (86) 93 Nasal Cannula 2.0 06/29/17 20:00 Room Air 2.0 06/29/17 19:05 36.8 67 24 98/64 (75) 93 Room Air 06/29/17 17:08 65 122/88 (99) 06/29/17 16:30 71 129/79 (96) 06/29/17 16:14 67 130/80 (97) 91 Nasal Cannula 3.0 06/29/17 16:00 92 Room Air 2.0 06/29/17 15:47 36.6 97 127/87 (100) 92 Room Air 06/29/17 15:06 36.7 70 20 123/79 (94) 94 Nasal Cannula 2.0 06/29/17 12:00 92 Nasal Cannula 2.0 06/29/17 11:30 36.6 69 20 102/64 (77) 92 06/29/17 10:55 75 86 06/29/17 08:00 94 Nasal Cannula 2.0 06/29/17 07:01 36.6 107 18 113/77 (89) 94 Room Air Physical Exam: General-[id number] Eyes-no scleral icterus ENT-mmm Neck-supple Lungs-clear Heart-3/6 systolic murmur Abdomen-bs+ s/nt/nd Extremities-+1 edema in the feet-improving Neuro-nonfocal Current Inpatient Medications Medications (Trade) Dose Ordered Sig/Larry Route Start Time Stop Time Status Last Admin Dose Admin Miscellaneous Information (Consult Glycemic Management Pharmacy) 1 ea UD PRN N/A 06/25/17 16:00 07/25/17 15:59 Insulin Aspart (novoLOG ASPART) SLIDING SCALE If C... ACHS SC 06/25/17 21:00 07/25/17 20:59 06/29/17 20:41 8 UNITS Glucose (Glucose 40% Gel) 15-30 GRAMS 15 GRAMS... UD PRN PO 06/25/17 16:00 07/25/17 15:59 Glucose (Glucose Chew Tab) 4-8 Tablets 4 Tabl... UD PRN PO 06/25/17 16:00 07/25/17 15:59 Dextrose (Dextrose 50% 50ML Syringe) 25-50ML OF 50% DW IV FOR... UD PRN IV 06/25/17 16:00 07/25/17 15:59 Glucagon (Glucagon Inj) 1 mg UD PRN SQ 06/25/17 16:00 07/25/17 15:59 Acetaminophen (Tylenol Tab) 650 mg Q4H PRN PO 06/25/17 16:00 07/25/17 15:59 Al Hydrox/Mg Hydrox/Simethicone (Maalox Max Susp) 15 ml Q4H PRN PO 06/25/17 16:00 07/25/17 15:59 Magnesium Hydroxide (Milk Of Magnesia Susp) 30 ml Q12H PRN PO 06/25/17 16:00 07/25/17 15:59 Miscellaneous (Iv Fluids Completed) 1 ea PRN PRN N/A 06/25/17 16:15 06/25/18 16:14 Albuterol (Ventolin Hfa Inhaler) 2 puffs Q4H PRN INH 06/25/17 16:15 07/25/17 16:14 Amiodarone HCl (Cordarone Tab) 200 mg BID PO 06/25/17 21:00 07/25/17 20:59 06/29/17 21:05 200 MG Aspirin (Ecotrin Tab) 81 mg QAM PO 06/26/17 09:00 07/26/17 08:59 06/29/17 07:49 81 MG Duloxetine HCl (Cymbalta Cap) 60 mg DAILY PO 06/26/17 09:00 07/26/17 08:59 06/29/17 07:49 60 MG Gabapentin (Neurontin Tab) 600 mg TID PO 06/25/17 21:00 07/25/17 20:59 06/29/17 20:35 600 MG Albuterol/ Ipratropium (Duoneb) 3 ml QID PRN INH 06/25/17 16:15 07/25/17 16:14 Isosorbide Dinitrate (Isordil Tab) 20 mg TID@0700,1200,1700 PO 06/25/17 17:00 07/25/17 16:59 06/30/17 06:27 20 MG Pantoprazole Sodium (Protonix Tab) 40 mg QAM PO 06/26/17 09:00 07/26/17 08:59 06/29/17 07:49 40 MG Rosuvastatin Calcium (Crestor Tab) 40 mg HS PO 06/25/17 21:00 07/25/17 20:59 06/29/17 20:34 40 MG Warfarin Sodium (Coumadin Tab) 5 mg DAILY@1600 PO 06/25/17 20:00 07/25/17 19:59 06/29/17 16:29 5 MG Miscellaneous Information (Order Awaiting Action) 1 ea QS N/A 06/26/17 00:00 07/26/17 00:00 Amlodipine Besylate (Norvasc Tab) 5 mg DAILY PO 06/27/17 09:00 07/26/17 08:59 06/29/17 07:49 5 MG Hydralazine HCl (Apresoline Tab) 25 mg TID PO 06/26/17 14:00 07/25/17 20:59 06/29/17 20:33 25 MG Metoprolol Succinate (Toprol Xl Tab) 50 mg QAM PO 06/27/17 09:00 07/27/17 08:59 06/29/17 07:49 50 MG Budesonide/ Formoterol Fumarate (Symbicort 160/ 4.5 Inh) 2 puffs BID INH 06/27/17 21:00 07/27/17 20:59 06/29/17 20:33 2 PUFFS Furosemide 10 mg/ Syringe 1 ml @ 4 mls/min [id number] IV 06/28/17 07:00 07/27/17 06:59 06/29/17 13:55 4 MLS/MIN Iron Sucrose 250 mg/Sodium Chloride 112.5 ml @ 420 mls/hr DAILY IV 06/28/17 09:00 06/30/17 16:00 06/29/17 10:53 420 MLS/HR Insulin Glargine (Lantus Solostar Pen) 8 units HS SC 06/29/17 21:00 07/29/17 20:59 06/29/17 20:42 8 UNITS Amiodarone HCL/ Dextrose 200 ml @ 16.7 mls/hr [id number] IV 06/29/17 21:46 07/29/17 21:45 06/30/17 00:44 16.7 MLS/HR Last 24 Hours Test 06/29/17 06:40 06/29/17 07:24 06/29/17 11:08 06/29/17 16:02 White Blood Count 5.26 K/uL Red Blood Count 3.30 M/uL Hemoglobin 9.0 g/dL Hematocrit 29.1 % Mean Corpuscular Volume 88.2 fL Mean Corpuscular Hemoglobin 27.3 pg Mean Corpuscular Hemoglobin Concent 30.9 g/dl Platelet Count 223 K/uL Mean Platelet Volume 8.5 fL Neutrophils (%) (Auto) 74.4 % Lymphocytes (%) (Auto) 12.0 % Monocytes (%) (Auto) 11.6 % Eosinophils (%) (Auto) 0.8 % Basophils (%) (Auto) 0.4 % Neutrophils # (Auto) 3.92 K/uL Lymphocytes # (Auto) 0.63 K/uL Monocytes # (Auto) 0.61 K/uL Eosinophils # (Auto) 0.04 K/uL Basophils # (Auto) 0.02 K/uL RDW Standard Deviation 53.5 fL RDW Coefficient of Variation 16.4 % Immature Granulocyte % (Auto) 0.8 % Immature Granulocyte # (Auto) 0.04 K/uL Prothrombin Time 27.8 SECONDS Prothromb Time International Ratio 2.7 Sodium Level 137 mmol/L Potassium Level 4.2 mmol/L Chloride Level 101 mmol/L Carbon Dioxide Level 29 mmol/L Anion Gap 7.0 mmol/L Blood Urea Nitrogen 55 mg/dl Creatinine 3.46 mg/dl Est Creatinine Clear Calc Drug Dose 26.7 ml/min Estimated GFR () 20.6 Estimated GFR (Non- 17.8 BUN/Creatinine Ratio 15.8 Random Glucose 120 mg/dl Calcium Level 8.9 mg/dl Total Bilirubin 0.5 mg/dl Aspartate Amino Transf (AST/SGOT) 14 U/L Alanine Aminotransferase (ALT/SGPT) 29 U/L Alkaline Phosphatase 106 U/L Total Protein 6.4 gm/dl Albumin 2.8 gm/dl Globulin 3.6 gm/dl Albumin/Globulin Ratio 0.8 Bedside Glucose 129 mg/dl 127 mg/dl 160 mg/dl Test 06/29/17 19:25 06/30/17 05:12 Bedside Glucose 190 mg/dl White Blood Count 6.23 K/uL Red Blood Count 3.20 M/uL Hemoglobin 8.9 g/dL Hematocrit 27.9 % Mean Corpuscular Volume 87.2 fL Mean Corpuscular Hemoglobin 27.8 pg Mean Corpuscular Hemoglobin Concent 31.9 g/dl RDW Standard Deviation 52.8 fL RDW Coefficient of Variation 16.7 % Platelet Count 213 K/uL Mean Platelet Volume 8.5 fL Prothrombin Time 29.3 SECONDS Prothromb Time International Ratio 2.8 Sodium Level 136 mmol/L Potassium Level 4.0 mmol/L Chloride Level 102 mmol/L Carbon Dioxide Level 27 mmol/L Anion Gap 7.0 mmol/L Blood Urea Nitrogen 57 mg/dl Creatinine 3.37 mg/dl Est Creatinine Clear Calc Drug Dose 27.4 ml/min Estimated GFR () 21.3 Estimated GFR (Non- 18.4 BUN/Creatinine Ratio 16.9 Random Glucose 113 mg/dl Calcium Level 8.7 mg/dl Magnesium Level 2.2 mg/dl Total Bilirubin 0.5 mg/dl Direct Bilirubin 0.2 mg/dl Aspartate Amino Transf (AST/SGOT) 16 U/L Alanine Aminotransferase (ALT/SGPT) 29 U/L Alkaline Phosphatase 111 U/L Total Protein 6.4 gm/dl Albumin 2.8 gm/dl Assessment & Plan ry on CKD stage 7-roo-[id number]-creatinine peaked at 3.6 and slowly trending back down to the low 3s. continue the gentle diuresis to help support breathing. greatly appreciate cardiology help. Iron deficiency anemia-hg of 8.9. on iv venofer and had tsat of 10%. to recheck tsat tomorrow to see if he still needs the iv venofer.
[2017-06-30] MEDS: FUROSEMIDE INJ 10 MG in SYRINGE 0 ML IV SCH ×2 (06:39→14:04)
[2017-06-30 07:58] VITALS: BP 134/77; PULSE 70; TEMP 36.8; O2SAT 96
[2017-06-30] MEDS: BUDESONIDE/FORMOTEROL FUMARATE 160/4.5 60 PUFFS/INHALER INH SCH ×2 (08:11→21:16)
[2017-06-30] MEDS: PANTOprazole SOD 40 MG TAB PO SCH (08:12)
[2017-06-30] MEDS: METOPROLOL SUCC 50MG EXT REL TAB PO SCH (08:12)
[2017-06-30] MEDS: GABAPENTIN 600 MG TAB PO SCH ×3 (08:12→21:14)
[2017-06-30] MEDS: AMLODIPINE BESYLATE 5 MG TAB PO SCH (08:13)
[2017-06-30] MEDS: ASPIRIN 81 MG ECTAB PO SCH (08:13)
[2017-06-30] MEDS: DULOXETINE HCL 60 MG CAP PO SCH (08:13)
[2017-06-30] MEDS: AMIODARONE 200 MG TAB PO SCH ×2 (08:13→21:15)
[2017-06-30] MEDS: INSULIN ASPART 100 UNITS/ML 3 ML PEN SC SCH ×4 (08:21→21:19)
[2017-06-30] MEDS: IRON SUCROSE IV SCH (08:24)
[2017-06-30] MEDS: SODIUM CHLORIDE 0.9% IV SCH (08:24)
--- NOTE | 2017-06-30 09:22 | Pharmacy Progress Note ---
Pharmacy Glycemic Short Note 2 Date of Service Jun 30, 2017. OUTPATIENT ANTIDIABETIC REGIMEN: * Lantus 45 units sq q PM * Novolog 7 units breakfast, 14 units with lunch & dinner * Total insulin = 80 units/day * Pt had a low on 06/26/17 when this was continued inpatient Item Value Date Time Bedside Glucose 124 mg/dl H 06/28/17 0721 Bedside Glucose 168 mg/dl H 06/28/17 1127 Bedside Glucose 194 mg/dl H 06/28/17 1609 Bedside Glucose 163 mg/dl H 06/28/17 2036 Item Value Date Time Bedside Glucose 129 mg/dl H 06/29/17 0724 Bedside Glucose 127 mg/dl H 06/29/17 1108 Bedside Glucose 160 mg/dl H 06/29/17 1602 Bedside Glucose 190 mg/dl H 06/29/17 1925 Item Value Date Time Bedside Glucose 127 mg/dl H 06/30/17 0635 ASSESSMENT: * 62yo T2DM male with sub-adequate outpatient control per recent A1c. Most likely non-compliance with outpatient insulin regimen as Pt had a low when outpatient regimen was continued inpatient and pt currently requiring significantly less insulin/day as compared to outpatient regimen. * Patient is currently receiving an average of ~35 units of insulin per day * 8 units of basal insulin * 27 units of prandial/correctional insulin * BSGs ranging 129 - 190 over the past 24hrs * Changes needed to SQ basal bolus insulin regimen: * AM Fasting BSG = 127 mg/dl and holding steady. This is in goal range. No changes needed to basal insulin dosing. * Total daily dose more weighted towards prandial insulin, but BSGs in goal range. Likely, post-prandial hyperglycemia is main problem for patient rather than basal insulin deficiency/resistance. * Post-prandial BSGs are in range, no change needed to CF/CR PLAN FOR INPATIENT GLYCEMIC CONTROL: * Basal insulin * Lantus 8 units SQ HS * Bolus insulin * NovoLog per scale ACHS or Q6hrs while NPO * Goal Range: Low 120 mg/dL - High 150 mg/dL * Correction Factor: 25 mg/dL/unit * Nutritional / Prandial insulin per carb ratio of 1 unit per 8 grams CHO consumed PLAN FOR DISCHARGE: * A1c 9.5% on 05/27/17. Goal A1c ~ 8-8.5% per Elements of Diabetes Care Scoring Scale * Suspect non-compliance with outpatient insulin regimen as Pt had a low when outpatient regimen was continued inpatient and pt currently requiring significantly less insulin/day as compared to outpatient regimen. * Recommend changing outpatient regimen to: * Lantus 8 units SQ HS * NovoLog 8 units with meals * Follow up with PCP to continue titrating dosing. Suggesting following up within 1-2 weeks for A1c >9%
[2017-06-30 12:21] VITALS: BP 146/87; PULSE 71; TEMP 36.7; O2SAT 93
[2017-06-30 15:27] VITALS: BP 112/76; PULSE 66; TEMP 37.1; O2SAT 90
[2017-06-30] MEDS ORDERED: PHYTONADIONE 5 MG TAB PO STA (17:24)
--- NOTE | 2017-06-30 17:29 | Cardiology Follow-Up ---
Subjective General Date of Service: Jun 30, 2017. Chief Complaint: Shortness of breath Pt evaluation today including: conversation w/ patient, physical exam History of Present Illness The patient is a 62 year old male seen in cardiology follow-up. Patient states he feels the shortness of breath is little bit worse today. His creatinine remains about the same at 3.37. INR is 2.8 . He is off of the amiodarone infusion. He appears to still be in sinus rhythm with long first-degree AV block and frequent PVCs on telemetry. EKG this morning revealed sinus rhythm with first-degree AV block at 73 bpm, left bundle branch block with wide QRS complex. Allergies Coded Allergies: No Known Allergies (Verified , 05/23/17) Social History Smoking Status: Never Smoker Hx Tobacco Use In Past Year?: No Hx Alcohol Use - Type And Amou: No Hx Substance Use - Type And Am: No Problem List Medical Problems: (1) CHF (congestive heart failure) Status: Acute (2) CHF (congestive heart failure) Status: Acute (3) Diffuse abdominal pain Status: Acute (4) Elevated troponin Status: Acute (5) Precordial chest pain Status: Acute (6) Renal cyst Status: Acute (7) Shortness of breath Status: Acute (8) Shortness of breath Status: Acute Physical Exam Vital Signs Last Vital Signs Documentation Date Time Temp Pulse Resp B/P (MAP) Pulse Ox O2 Delivery O2 Flow Rate FiO2 06/30/17 15:27 37.1 66 18 112/76 (88) 90 Nasal Cannula 2.0 Physical Exam Constitutional: Level of Distress: NAD Neck: supple Lungs: Auscultation: pertinent finding (mildly decreased BS at baseline) Cardiovascular: Heart Auscultation: RRR, no murmurs Extremities: no edema Neurologic: Gait & Station: pertinent finding (no focl neuro deficits ) Assessment and Plan Assessment and Plan Pharmacologic nuclear stress test performed today having been supervised, interpreted by the undersigned: Normal stress and resting perfusion, moderate to severe global left ventricular hypokinesis, calculated LVEF 30% Impression: 62-year-old male 1. Acute on chronic systolic heart failure, volume status improved First-degree AV block, left bundle branch block with wide QRS complex 2. Prior history of nonischemic cardiomyopathy, mild coronary atherosclerosis by cardiac catheterization 07/02/16, nuclear stress test is performed today suggests ongoing nonischemic cardiomyopathy rather than new obstructive CAD with high-quality perfusion images noted today. 3. Chronic kidney disease, creatinine 3.37 today, has been his recent baseline ever since acute kidney injury that took place during hospital stay from April to May, 4. Paroxysmal atrial flutter 5. History of retroperitoneal bleed last, now back on anticoagulation, hemoglobin stable, however below goal, he has therefore received IV iron this admission Plan: Continue current medications. EP input noted and appreciated. Tentatively plan for biventricular pacemaker AICD on with Dr. Oseguera. Goal INR for the procedure is 1.5. Will therefore hold coumadin, administer 2.5 mg of oral vitamin K and repeat INR in am of 07/01 in preparation for the procedure. When INR is < 2, plan for pre procedure heparin bridge. Laboratory Results Last 24 Hours Test 06/29/17 19:25 06/30/17 05:12 06/30/17 06:35 06/30/17 11:02 Bedside Glucose 190 mg/dl 127 mg/dl 186 mg/dl White Blood Count 6.23 K/uL Red Blood Count 3.20 M/uL Hemoglobin 8.9 g/dL Hematocrit 27.9 % Mean Corpuscular Volume 87.2 fL Mean Corpuscular Hemoglobin 27.8 pg Mean Corpuscular Hemoglobin Concent 31.9 g/dl RDW Standard Deviation 52.8 fL RDW Coefficient of Variation 16.7 % Platelet Count 213 K/uL Mean Platelet Volume 8.5 fL Prothrombin Time 29.3 SECONDS Prothromb Time International Ratio 2.8 Sodium Level 136 mmol/L Potassium Level 4.0 mmol/L Chloride Level 102 mmol/L Carbon Dioxide Level 27 mmol/L Anion Gap 7.0 mmol/L Blood Urea Nitrogen 57 mg/dl Creatinine 3.37 mg/dl Est Creatinine Clear Calc Drug Dose 27.4 ml/min Estimated GFR () 21.3 Estimated GFR (Non- 18.4 BUN/Creatinine Ratio 16.9 Random Glucose 113 mg/dl Calcium Level 8.7 mg/dl Magnesium Level 2.2 mg/dl Total Bilirubin 0.5 mg/dl Direct Bilirubin 0.2 mg/dl Aspartate Amino Transf (AST/SGOT) 16 U/L Alanine Aminotransferase (ALT/SGPT) 29 U/L Alkaline Phosphatase 111 U/L Total Protein 6.4 gm/dl Albumin 2.8 gm/dl Test 06/30/17 16:15 Bedside Glucose 285 mg/dl
--- NOTE | 2017-06-30 17:52 | Progress Note ---
Medicine Progress Note Date & Time of Visit: Jun 30, 2017 at 17:25. Subjective Pt was seen and examined Sitting in bed with no distress Pt said that he continue to have SOB with minimal exertiion He said that he feels slightly better Denies any chest pain, palpitation, fever and dizziness Objective Last 8 Hrs Date Time Temp Pulse Resp B/P (MAP) Pulse Ox O2 Delivery O2 Flow Rate FiO2 06/30/17 15:27 37.1 66 18 112/76 (88) 90 Nasal Cannula 2.0 06/30/17 15:00 Nasal Cannula 2.0 06/30/17 12:21 36.7 71 24 146/87 (106) 93 Nasal Cannula 2.0 06/30/17 12:00 Nasal Cannula 2.0 Physical Exam: General- No acute distress Head- atraumatic Eyes- PERRL, EOMI ENT- oropharynx clear Neck- supple, no JVD Lungs- Mild wheezing Heart- +systolic murmur Abdomen- normal bowel sounds, soft Extremities- +edema, no calf tenderness Neuro- alert, oriented x 3; PERRL, EOMI Skin- warm & dry Laboratory Results: Last 24 Hours Test 06/29/17 19:25 06/30/17 05:12 06/30/17 06:35 06/30/17 11:02 Bedside Glucose 190 mg/dl 127 mg/dl 186 mg/dl White Blood Count 6.23 K/uL Red Blood Count 3.20 M/uL Hemoglobin 8.9 g/dL Hematocrit 27.9 % Mean Corpuscular Volume 87.2 fL Mean Corpuscular Hemoglobin 27.8 pg Mean Corpuscular Hemoglobin Concent 31.9 g/dl RDW Standard Deviation 52.8 fL RDW Coefficient of Variation 16.7 % Platelet Count 213 K/uL Mean Platelet Volume 8.5 fL Prothrombin Time 29.3 SECONDS Prothromb Time International Ratio 2.8 Sodium Level 136 mmol/L Potassium Level 4.0 mmol/L Chloride Level 102 mmol/L Carbon Dioxide Level 27 mmol/L Anion Gap 7.0 mmol/L Blood Urea Nitrogen 57 mg/dl Creatinine 3.37 mg/dl Est Creatinine Clear Calc Drug Dose 27.4 ml/min Estimated GFR () 21.3 Estimated GFR (Non- 18.4 BUN/Creatinine Ratio 16.9 Random Glucose 113 mg/dl Calcium Level 8.7 mg/dl Magnesium Level 2.2 mg/dl Total Bilirubin 0.5 mg/dl Direct Bilirubin 0.2 mg/dl Aspartate Amino Transf (AST/SGOT) 16 U/L Alanine Aminotransferase (ALT/SGPT) 29 U/L Alkaline Phosphatase 111 U/L Total Protein 6.4 gm/dl Albumin 2.8 gm/dl Test 06/30/17 16:15 Bedside Glucose 285 mg/dl Assessment & Plan Acute on chronic systolic heart failure ProBNP on admission 5122 CXR on admission shwed no acute findings. Continue IV lasix 10mg BID Cardiology on board Plan for AICD placement on Continue metoprolol Recent ECHO showed * The left ventricle is normal in size. * Septal motion is consistent with conduction abnormality. * Left ventricular systolic function is moderately reduced. * Ejection Fraction = 35-40%. * The right ventricular systolic function is normal. * The left atrium is moderately dilated. * The right atrium is moderately dilated. * The aortic valve is sclerotic. * Moderate aortic stenosis. * There is mild mitral regurgitation Chest Pain Prior history of nonischemic cardiomyopathy, mild coronary atherosclerosis by cardiac catheterization 07/02/16 S/P nuclear stress test is performed yesterday suggests ongoing nonischemic cardiomyopathy rather than new obstructive CAD Continue Statin, aspirin, and metoprolol Continue monitor in tele Resolved Paroxysmal Afib Rate control with amiodarone and metoprolol On Coumadin. INR 2.8 today Coumadin hold today for possible AICD placement on Chronic kidney disease stage 4 Still elevated from recent baseline ~2.5 Creatine 3.3 creatinine today Avoid nephrotoxic agent Nephrology on board continue monitor BMP Anemia History of retroperitoneal bleed Hgb stable DM II Last a1c 9.5 Continue holding oral meds Insulin sliding scale coverage Monitor BS DVT px on coumadin Coumadin on hold INR 2.8 CODE STATUS FULL CODE Current Inpatient Medications: Current Inpatient Medications Medications (Trade) Dose Ordered Sig/Larry Route Start Time Stop Time Status Last Admin Dose Admin Miscellaneous Information (Consult Glycemic Management Pharmacy) 1 ea UD PRN N/A 06/25/17 16:00 07/25/17 15:59 Insulin Aspart (novoLOG ASPART) SLIDING SCALE If C... ACHS SC 06/25/17 21:00 07/25/17 20:59 06/30/17 12:10 8 UNITS Glucose (Glucose 40% Gel) 15-30 GRAMS 15 GRAMS... UD PRN PO 06/25/17 16:00 07/25/17 15:59 Glucose (Glucose Chew Tab) 4-8 Tablets 4 Tabl... UD PRN PO 06/25/17 16:00 07/25/17 15:59 Dextrose (Dextrose 50% 50ML Syringe) 25-50ML OF 50% DW IV FOR... UD PRN IV 06/25/17 16:00 07/25/17 15:59 Glucagon (Glucagon Inj) 1 mg UD PRN SQ 06/25/17 16:00 07/25/17 15:59 Acetaminophen (Tylenol Tab) 650 mg Q4H PRN PO 06/25/17 16:00 07/25/17 15:59 Al Hydrox/Mg Hydrox/Simethicone (Maalox Max Susp) 15 ml Q4H PRN PO 06/25/17 16:00 07/25/17 15:59 Magnesium Hydroxide (Milk Of Magnesia Susp) 30 ml Q12H PRN PO 06/25/17 16:00 07/25/17 15:59 Miscellaneous (Iv Fluids Completed) 1 ea PRN PRN N/A 06/25/17 16:15 06/25/18 16:14 Albuterol (Ventolin Hfa Inhaler) 2 puffs Q4H PRN INH 06/25/17 16:15 07/25/17 16:14 Amiodarone HCl (Cordarone Tab) 200 mg BID PO 06/25/17 21:00 07/25/17 20:59 06/30/17 08:13 200 MG Aspirin (Ecotrin Tab) 81 mg QAM PO 06/26/17 09:00 07/26/17 08:59 06/30/17 08:13 81 MG Duloxetine HCl (Cymbalta Cap) 60 mg DAILY PO 06/26/17 09:00 07/26/17 08:59 06/30/17 08:13 60 MG Gabapentin (Neurontin Tab) 600 mg TID PO 06/25/17 21:00 07/25/17 20:59 06/30/17 14:04 600 MG Albuterol/ Ipratropium (Duoneb) 3 ml QID PRN INH 06/25/17 16:15 07/25/17 16:14 Isosorbide Dinitrate (Isordil Tab) 20 mg TID@0700,1200,1700 PO 06/25/17 17:00 07/25/17 16:59 06/30/17 12:08 20 MG Pantoprazole Sodium (Protonix Tab) 40 mg QAM PO 06/26/17 09:00 07/26/17 08:59 06/30/17 08:12 40 MG Rosuvastatin Calcium (Crestor Tab) 40 mg HS PO 06/25/17 21:00 07/25/17 20:59 06/29/17 20:34 40 MG Warfarin Sodium (Coumadin Tab) 5 mg DAILY@1600 PO 06/25/17 20:00 07/25/17 19:59 Future Hold 06/29/17 16:29 5 MG Amlodipine Besylate (Norvasc Tab) 5 mg DAILY PO 06/27/17 09:00 07/26/17 08:59 06/30/17 08:13 5 MG Hydralazine HCl (Apresoline Tab) 25 mg TID PO 06/26/17 14:00 07/25/17 20:59 06/30/17 14:04 25 MG Metoprolol Succinate (Toprol Xl Tab) 50 mg QAM PO 06/27/17 09:00 07/27/17 08:59 06/30/17 08:12 50 MG Budesonide/ Formoterol Fumarate (Symbicort 160/ 4.5 Inh) 2 puffs BID INH 06/27/17 21:00 06/30/17 23:59 06/30/17 08:11 2 PUFFS Furosemide 10 mg/ Syringe 1 ml @ 4 mls/min [id number] IV 06/28/17 07:00 07/27/17 06:59 06/30/17 14:04 4 MLS/MIN Insulin Glargine (Lantus Solostar Pen) 8 units HS SC 06/29/17 21:00 07/29/17 20:59 06/29/17 20:42 8 UNITS Fluticasone/ Vilanterol (Breo Ellipta 100-25 Mcg/Inh) 1 puffs DAILY INH 07/01/17 09:00 07/31/17 08:59
[2017-06-30 21:09] VITALS: BP 110/63; PULSE 94; TEMP 36.6; O2SAT 94
[2017-06-30] MEDS: ROSUVASTATIN CALCIUM 20 MG TAB PO SCH (21:14)
[2017-06-30] MEDS: INSULIN GLARGINE SOLOSTAR 100 UNITS/ML 3 ML PEN SC SCH (21:24)
[2017-06-30 23:24] VITALS: BP 127/75; PULSE 68; TEMP 36.7; O2SAT 92
[2017-07-01] VITALS (8 sets, daily range): BP systolic 106–140; BP diastolic 58–86; PULSE 61–80; TEMP 36.6–39.7; O2SAT 83–94
[2017-07-01 06:49] LABS: INR 1.7 (0.9-1.1)
[2017-07-01 07:04] LABS: CALCIUM 8.8 mg/dl (8.5-10.1); CREATININE 3.32 mg/dl (0.60-1.40); POTASSIUM 3.8 mmol/L (3.5-5.1)
[2017-07-01] MEDS: FUROSEMIDE INJ 10 MG in SYRINGE 0 ML IV SCH (08:19)
[2017-07-01] MEDS: ISOSORBIDE DINITRATE 10 MG TAB PO SCH ×3 (08:19→17:29)
[2017-07-01] MEDS: INSULIN ASPART 100 UNITS/ML 3 ML PEN SC SCH ×4 (08:21→21:01)
[2017-07-01] MEDS: FLUTICASONE FUROATE-VILANTEROL 60 PUFFS INH INH SCH (08:34)
[2017-07-01] MEDS: ASPIRIN 81 MG ECTAB PO SCH (08:35)
[2017-07-01] MEDS: AMLODIPINE BESYLATE 5 MG TAB PO SCH (08:35)
[2017-07-01] MEDS: GABAPENTIN 600 MG TAB PO SCH ×3 (08:35→20:25)
[2017-07-01] MEDS: METOPROLOL SUCC 50MG EXT REL TAB PO SCH (08:35)
[2017-07-01] MEDS: AMIODARONE 200 MG TAB PO SCH ×2 (08:35→20:25)
[2017-07-01] MEDS: PANTOprazole SOD 40 MG TAB PO SCH (08:35)
[2017-07-01] MEDS: DULOXETINE HCL 60 MG CAP PO SCH (08:35)
--- NOTE | 2017-07-01 10:56 | Cardiology Consultation ---
Cardiology Consultation Date of Consultation: Jul 01, 2017. Requesting Physician: Dr. Sethi Reason for Consultation: Evaluation for biventricular ICD Pt evaluation today including: conversation w/ patient, conversation w/ family , physical exam, lab review, review of studies, conversation w/ [facility] consultant, review of inpatient medication list History of Present Illness This is a very pleasant but complex 62-year-old gentleman. He has a multitude of cardiac abnormalities as well as long-standing hypertension and chronic renal insufficiency. He has had a nonischemic cardiomyopathy and has had catheterization 3 times, most recently July 04, 2016 which showed nonobstructive coronary artery disease. In March 2017 he had a left ventricular ejection fraction in 35-40% range with moderate concentric left ventricular hypertrophy and moderate aortic stenosis, he was treated medically however he continued to have difficulties including what appeared to be influenza A followed by pneumonia and acute kidney disease with congestive heart failure in May 2017. He was hospitalized from May 23 - June 10, 2017. His renal insufficiency required transient dialysis, he was also observed to have atrial fibrillation (which has continued intermittently) and he developed a left-sided retroperitoneal hematoma felt secondary to dialysis catheter placement and anticoagulation. He required blood transfusions for this. He was started on oral amiodarone for his atrial fibrillation, as well as warfarin. He then presented on June 26, 2017 with recurrent shortness of breath. Here his evaluation has included echocardiography with an ejection fraction of initially reported as 35-40% on arrival (although that may be an overestimate based on subsequent review), and moderate aortic stenosis. He had a pharmacologic Cardiolite study performed on June 29, 2017, this study showed no evidence of ischemia. The left ventricle was mildly dilated both on stress and at rest, his left ventriculogram demonstrated global hypokinesis with an ejection fraction of 30%. Electrocardiography has demonstrated a very wide left bundle branch block with first-degree AV block, QRS duration is over 200 ms and his MN interval is about 250 ms. He feels well this afternoon, this morning is a little short of breath but feels better now. He still has some difficulty with orthopnea but has not been having chest discomfort or palpitations. He does have a significant tremor which bothers him. Past Medical/Surgical History (1) H/O cardiac catheterization (2) S/p adrenal gland surgery (3) Nonischemic cardiomyopathy (4) LBBB (left bundle branch block) (5) CAD (coronary artery disease) (6) CKD (chronic kidney disease), stage III (7) Hypertension (8) DM type 2 (diabetes mellitus, type 2) (9) Dyslipidemia Family History Diabetes mellitus SISTER BROTHER FH: CHF (congestive heart failure) MOTHER Hypertension SON Social History Smoking Status: Never Smoker History of Alcohol Use: No Review of Systems Constitutional: No fever, No weight loss, No weakness Respiratory: + cough (occasional), + shortness of breath, + dyspnea on exertion , + dyspnea at rest, No wheezing Cardiac: + edema, No chest pain, No PND, No palpitations Abdomen: No pain, No nausea, No vomiting, No diarrhea, No GI bleeding Male : No urinary frequency, No nocturia more than once/night, No slowing stream, No sexual dysfunction Neurologic: No paralysis, No weakness, No numbness/tingling, No balance problems Heme: No abnormal bleeding/bruising, No clotting problems Endo: No fatigue Skin: No problem reported All Other Systems: Reviewed and Negative Allergies Coded Allergies: No Known Allergies (Verified , 05/23/17) Medications Current Inpatient Medications Medications (Trade) Dose Ordered Sig/Larry Route Start Time Stop Time Status Last Admin Dose Admin Miscellaneous Information (Consult Glycemic Management Pharmacy) 1 ea UD PRN N/A 06/25/17 16:00 07/25/17 15:59 Insulin Aspart (novoLOG ASPART) SLIDING SCALE If C... ACHS SC 06/25/17 21:00 07/25/17 20:59 07/01/17 08:21 7 UNITS Glucose (Glucose 40% Gel) 15-30 GRAMS 15 GRAMS... UD PRN PO 06/25/17 16:00 07/25/17 15:59 Glucose (Glucose Chew Tab) 4-8 Tablets 4 Tabl... UD PRN PO 06/25/17 16:00 07/25/17 15:59 Dextrose (Dextrose 50% 50ML Syringe) 25-50ML OF 50% DW IV FOR... UD PRN IV 06/25/17 16:00 07/25/17 15:59 Glucagon (Glucagon Inj) 1 mg UD PRN SQ 06/25/17 16:00 07/25/17 15:59 Acetaminophen (Tylenol Tab) 650 mg Q4H PRN PO 06/25/17 16:00 07/25/17 15:59 Al Hydrox/Mg Hydrox/Simethicone (Maalox Max Susp) 15 ml Q4H PRN PO 06/25/17 16:00 07/25/17 15:59 Magnesium Hydroxide (Milk Of Magnesia Susp) 30 ml Q12H PRN PO 06/25/17 16:00 07/25/17 15:59 Miscellaneous (Iv Fluids Completed) 1 ea PRN PRN N/A 06/25/17 16:15 06/25/18 16:14 Albuterol (Ventolin Hfa Inhaler) 2 puffs Q4H PRN INH 06/25/17 16:15 07/25/17 16:14 Amiodarone HCl (Cordarone Tab) 200 mg BID PO 06/25/17 21:00 07/25/17 20:59 07/01/17 08:35 200 MG Aspirin (Ecotrin Tab) 81 mg QAM PO 06/26/17 09:00 07/26/17 08:59 07/01/17 08:35 81 MG Duloxetine HCl (Cymbalta Cap) 60 mg DAILY PO 06/26/17 09:00 07/26/17 08:59 07/01/17 08:35 60 MG Gabapentin (Neurontin Tab) 600 mg TID PO 06/25/17 21:00 07/25/17 20:59 07/01/17 08:35 600 MG Albuterol/ Ipratropium (Duoneb) 3 ml QID PRN INH 06/25/17 16:15 07/25/17 16:14 Isosorbide Dinitrate (Isordil Tab) 20 mg TID@0700,1200,1700 PO 06/25/17 17:00 07/25/17 16:59 07/01/17 08:19 20 MG Pantoprazole Sodium (Protonix Tab) 40 mg QAM PO 06/26/17 09:00 07/26/17 08:59 07/01/17 08:35 40 MG Rosuvastatin Calcium (Crestor Tab) 40 mg HS PO 06/25/17 21:00 07/25/17 20:59 06/30/17 21:14 40 MG Warfarin Sodium (Coumadin Tab) 5 mg DAILY@1600 PO 06/25/17 20:00 07/25/17 19:59 Future Hold 06/29/17 16:29 5 MG Amlodipine Besylate (Norvasc Tab) 5 mg DAILY PO 06/27/17 09:00 07/26/17 08:59 07/01/17 08:35 5 MG Hydralazine HCl (Apresoline Tab) 25 mg TID PO 06/26/17 14:00 07/25/17 20:59 07/01/17 08:35 25 MG Metoprolol Succinate (Toprol Xl Tab) 50 mg QAM PO 06/27/17 09:00 07/27/17 08:59 07/01/17 08:35 50 MG Furosemide 10 mg/ Syringe 1 ml @ 4 mls/min [id number] IV 06/28/17 07:00 07/27/17 06:59 07/01/17 08:19 4 MLS/MIN Insulin Glargine (Lantus Solostar Pen) 8 units HS SC 06/29/17 21:00 07/29/17 20:59 06/30/17 21:24 8 UNITS Fluticasone/ Vilanterol (Breo Ellipta 100-25 Mcg/Inh) 1 puffs DAILY INH 07/01/17 09:00 07/31/17 08:59 07/01/17 08:34 1 PUFFS Physical Exam Vital Signs Past 12 Hours Date Time Temp Pulse Resp B/P (MAP) Pulse Ox O2 Delivery O2 Flow Rate FiO2 07/01/17 08:00 Nasal Cannula 3.0 07/01/17 07:53 36.6 80 18 140/86 (104) 85 Nasal Cannula 07/01/17 04:00 Nasal Cannula 3.0 07/01/17 03:39 36.6 70 20 133/75 (94) 91 Nasal Cannula 3.0 06/30/17 23:59 Nasal Cannula 3.0 06/30/17 23:24 36.7 68 18 127/75 (92) 92 Nasal Cannula 3.0 Constitutional: Level of Distress: mild distress Psychiatric: Mental Status: active & alert Head: normocephalic Eyes: EOM: EOMI ENMT: normal ENT inspection, hearing grossly normal Neck: supple, no masses Lungs: Respiratory effort: no dyspnea, good air movement Auscultation: pertinent finding (mildly decreased BS at baseline) Cardiovascular: Heart Auscultation: RRR, II/ KACIE Peripheral Pulses: Bruits: none appreciated Abdomen: Bowel Sounds: normal Inspection & Palpation: soft, no tenderness, guarding & rebound, no masses Musculoskeletal: normal strength (5/5 throughout) Extremities: no edema Neurologic: Gait & Station: pertinent finding (no focal neuro deficits ) Cranial Nerves: grossly intact Sensation: grossly intact Data Laboratory Results: Last 24 Hours Test 06/30/17 11:02 06/30/17 16:15 06/30/17 21:12 07/01/17 06:02 Bedside Glucose 186 mg/dl 285 mg/dl 144 mg/dl Prothrombin Time 18.0 SECONDS Prothromb Time International Ratio 1.7 Sodium Level 138 mmol/L Potassium Level 3.8 mmol/L Chloride Level 102 mmol/L Carbon Dioxide Level 29 mmol/L Anion Gap 7.0 mmol/L Blood Urea Nitrogen 52 mg/dl Creatinine 3.32 mg/dl Est Creatinine Clear Calc Drug Dose 27.9 ml/min Estimated GFR () 21.7 Estimated GFR (Non- 18.7 BUN/Creatinine Ratio 15.5 Random Glucose 132 mg/dl Calcium Level 8.8 mg/dl Iron Level 48 mcg/dl Total Iron Binding Capacity 305 mcg/dl Transferrin 228 mg/dl Transferrin % Saturation 15 % Test 07/01/17 06:47 07/01/17 07:27 Bedside Glucose 130 mg/dl 150 mg/dl Imaging: No clear CHF EKG: Sinus rhythm with first-degree AV block, left bundle branch block with a QRS duration of over 200 ms. Telemetry reviewed: Sinus rhythm with first-degree AV block and IVCD over the last several days, prior to that periods of atrial fibrillation and atrial flutter, at times with a rapid heart rate Assessment & Plan 1. Cardiomyopathy: He appears to have a nonischemic cardiomyopathy with an ejection fraction which has been decreasing, and although there is some discrepancy in his ejection fraction it is in the 30-40% range, probably closer to 30%. Given the magnitude of his conduction abnormality it is likely that dyssynchrony is at least partially responsible for his cardiomyopathy. In addition he has first-degree AV block and atrial arrhythmias, it has been difficult to titrate beta-blockade with his conduction abnormality. I believe resynchronization therapy is the best option to try to improve his left ventricular function as well as his heart failure symptoms. He is agreeable. 2. Congestive heart failure: He does not have evidence of much fluid overload currently (he does not have heart failure on chest x-ray or exam) but he has significant heart failure symptoms (NYHA class III) including severe dyspnea on exertion and orthopnea. As such he qualifies for biventricular pacing. 3. Risk of sudden cardiac : His ejection fraction is in the range where we should consider ICD implantation, although with biventricular pacing and use of optimal medical management his ejection fraction may improve substantially. A pacemaker itself may be adequate, however the difficulty in upgrading to a biventricular ICD if needed in the future may make it more prudent to place an ICD currently. This procedure is the same, he carries the same risk, the device is a little bit bigger and may need to be replaced sooner but that may be preferable to requiring upgrade to a biventricular ICD in the future. I discussed the indications, procedure, risks and alternatives of biventricular ICD implantation with him and his and they understand and he agrees to proceed. Consent obtained. I also discussed the use of conscious sedation including the risks and he understands. Consent obtained. I did emphasize the possibility of kidney dysfunction related to x-ray dye, although that usually does not happen, and the possibility that he could require temporary hemodialysis if he does have nephrotoxicity from the dye. He understands and is willing to proceed. Other risks, including bleeding, are probably not excessive since his INR has dropped nicely. Thank you for allowing me to participate in his care.
--- NOTE | 2017-07-01 11:20 | Cardiology Follow-Up ---
Subjective General Date of Service: Jul 01, 2017. Chief Complaint: Shortness of breath Pt evaluation today including: conversation w/ patient, physical exam History of Present Illness The patient is a 62 year old male seen in follow up. Patient states he feels ongoing shortness of breath but no acute worsening. He has generalized tiredness. Telemetry reveals ongoing sinus rhythm with long first-degree AV block, left bundle branch block with wide QRS, and occasional PVCs. Allergies Coded Allergies: No Known Allergies (Verified , 05/23/17) Social History Smoking Status: Never Smoker Hx Tobacco Use In Past Year?: No Hx Alcohol Use - Type And Amou: No Hx Substance Use - Type And Am: No Problem List Medical Problems: (1) CHF (congestive heart failure) Status: Acute (2) CHF (congestive heart failure) Status: Acute (3) Diffuse abdominal pain Status: Acute (4) Elevated troponin Status: Acute (5) Precordial chest pain Status: Acute (6) Renal cyst Status: Acute (7) Shortness of breath Status: Acute (8) Shortness of breath Status: Acute Physical Exam Vital Signs Last Vital Signs Documentation Date Time Temp Pulse Resp B/P (MAP) Pulse Ox O2 Delivery O2 Flow Rate FiO2 07/01/17 11:01 36.6 73 20 125/81 (96) 92 Nasal Cannula 5.0 Physical Exam Constitutional: Level of Distress: mild distress Psychiatric: Mental Status: active & alert Head: normocephalic Eyes: EOM: EOMI ENMT: normal ENT inspection, hearing grossly normal Neck: supple, no masses Lungs: Respiratory effort: no dyspnea, good air movement Auscultation: pertinent finding (mildly decreased BS at baseline) Cardiovascular: Heart Auscultation: RRR, II/ KACIE Peripheral Pulses: Bruits: none appreciated Abdomen: Bowel Sounds: normal Inspection & Palpation: soft, no tenderness, guarding & rebound, no masses Musculoskeletal: normal strength (5/5 throughout) Extremities: pertinent finding (Trace lower extremity edema) Neurologic: Gait & Station: pertinent finding (no focal neuro deficits ) Cranial Nerves: grossly intact Sensation: grossly intact Assessment and Plan Assessment and Plan Pharmacologic nuclear stress test performed today having been supervised, interpreted by the undersigned: Normal stress and resting perfusion, moderate to severe global left ventricular hypokinesis, calculated LVEF 30% Impression: 62-year-old male 1. Acute on chronic systolic heart failure, volume status improved First-degree AV block, left bundle branch block with wide QRS complex 2. Prior history of nonischemic cardiomyopathy, mild coronary atherosclerosis by cardiac catheterization 07/02/16, nuclear stress test is performed today suggests ongoing nonischemic cardiomyopathy rather than new obstructive CAD with high-quality perfusion images noted today. 3. Chronic kidney disease, creatinine 3.37 today, has been his recent baseline ever since acute kidney injury that took place during hospital stay from April to May, 4. Paroxysmal atrial flutter 5. History of retroperitoneal bleed last, now back on anticoagulation, hemoglobin stable, however below goal, he has therefore received IV iron this admission Plan: Continue current medications. I personally have gone back and reviewed the patient's prior echocardiogram reports including having personally reviewed the images obtained at the time of echocardiogram dated 06/26/17. To synchronous contraction of the interventricular septum is noted consistent with left bundle branch block. In the views were the septum is included, the patient appears to have very severe LV systolic dysfunction which is a little bit better in the other views such as the apical 2 chamber that excludes the inner ventricular septum. My personal interpretation of the images is that the patient has an ejection fraction in the range of 30% by both echocardiogram as well as gated SPECT nuclear. I believe he will benefit clinically from cardiac resynchronization therapy. I also think he would benefit from AICD capability for primary prevention of sudden cardiac . In terms of medications, the patient has been on appropriate medications for a year now since his cardia myopathy was initially diagnosed. Currently he is on reasonable doses of metoprolol succinate, and hydralazine. He is not a candidate for an VENKATA inhibitor, angiotensin receptor effie, or Entresto given his degree of renal dysfunction with creatinine of 3.4. He is not a candidate for spironolactone given his renal dysfunction. He has been on the maximum dose of diuretic tolerated based on his blood pressure and kidney function. Despite this optimal medication therapy, he is still significantly symptomatic. The patient's INR today is 1.7. He received vitamin K yesterday in preparation for biventricular AICD. Will start heparin bridge, standard protocol without bolus. I will defer placing an order for a stop time to Dr. Oseguera when we know when his procedure will take place. Because of the patient's worsening dyspnea today, I am going to give him an additional dose of IV furosemide. He received IV furosemide 10 mg IV this morning, I am going to give him an additional 20 mg, and hold his p.m. dose And hold the dose tomorrow in preparation for procedure. Laboratory Results Last 24 Hours Test 06/30/17 16:15 06/30/17 21:12 07/01/17 06:02 07/01/17 06:47 Bedside Glucose 285 mg/dl 144 mg/dl 130 mg/dl Prothrombin Time 18.0 SECONDS Prothromb Time International Ratio 1.7 Sodium Level 138 mmol/L Potassium Level 3.8 mmol/L Chloride Level 102 mmol/L Carbon Dioxide Level 29 mmol/L Anion Gap 7.0 mmol/L Blood Urea Nitrogen 52 mg/dl Creatinine 3.32 mg/dl Est Creatinine Clear Calc Drug Dose 27.9 ml/min Estimated GFR () 21.7 Estimated GFR (Non- 18.7 BUN/Creatinine Ratio 15.5 Random Glucose 132 mg/dl Calcium Level 8.8 mg/dl Iron Level 48 mcg/dl Total Iron Binding Capacity 305 mcg/dl Transferrin 228 mg/dl Transferrin % Saturation 15 % Test 07/01/17 07:27 Bedside Glucose 150 mg/dl
[2017-07-01] MEDS ORDERED: FUROSEMIDE INJ 20 MG in SYRINGE 0 ML IV ONE (11:30)
[2017-07-01] MEDS: HEPARIN 25,000 UNIT/500ML D5W 500 ML IV SCH (13:10)
--- NOTE | 2017-07-01 13:21 | Pulmonology Progress Note ---
Pulmonary Progress Note Date of Service Jul 01, 2017. Attending Dr. Shen Subjective Patient notes he is still short of breath especially with exertion but actively denies any productive cough, fever or chills at this time Objective Patient is able to sit up in bed but does have tachypnea during our conversation not using accessory muscles but does note some shortness of breath with walking across the room Vital signs: Stable on 3-5 L nasal cannula Physical Exam: General - NAD Eyes - No icterus, gaze conjugate ENT - Mucosa moist, no lesions or candidiasis Neck - Supple, No JVD Lungs -minimal crackles at the bases Heart -irregular, irregular, rate controlled Abdomen - Soft, NT, ND, BS present Extremities -1-2+ bilateral lower extremity edema Neuro - A&OX3 Assessment & Plan 62-year-old gentleman admitted with shortness of breath: 1. COPD: Patient's pulmonary function studies performed 06/28/2017 show mild obstructive ventilatory disease based off GOLD standards and moderate obstructive ventilatory disease based off ATS. This time the patient can be continued on his Brio as well as intermittent nebulizer for benefit. I suggest as an outpatient follow-up with the pulmonary division and at that time we can perform outpatient inhaler trial such as a 6 week on and 6 week off course to see if they benefit him after his cardiac dysfunction has been dealt with. Sign-off: At this time pulmonary will sign off thank you very much Data Medications: Current Inpatient Medications Medications (Trade) Dose Ordered Sig/Larry Route Start Time Stop Time Status Last Admin Dose Admin Miscellaneous Information (Consult Glycemic Management Pharmacy) 1 ea UD PRN N/A 06/25/17 16:00 07/25/17 15:59 Insulin Aspart (novoLOG ASPART) SLIDING SCALE If C... ACHS SC 06/25/17 21:00 07/25/17 20:59 07/01/17 11:46 9 UNITS Glucose (Glucose 40% Gel) 15-30 GRAMS 15 GRAMS... UD PRN PO 06/25/17 16:00 07/25/17 15:59 Glucose (Glucose Chew Tab) 4-8 Tablets 4 Tabl... UD PRN PO 06/25/17 16:00 07/25/17 15:59 Dextrose (Dextrose 50% 50ML Syringe) 25-50ML OF 50% DW IV FOR... UD PRN IV 06/25/17 16:00 07/25/17 15:59 Glucagon (Glucagon Inj) 1 mg UD PRN SQ 06/25/17 16:00 07/25/17 15:59 Acetaminophen (Tylenol Tab) 650 mg Q4H PRN PO 06/25/17 16:00 07/25/17 15:59 Al Hydrox/Mg Hydrox/Simethicone (Maalox Max Susp) 15 ml Q4H PRN PO 06/25/17 16:00 07/25/17 15:59 Magnesium Hydroxide (Milk Of Magnesia Susp) 30 ml Q12H PRN PO 06/25/17 16:00 07/25/17 15:59 Miscellaneous (Iv Fluids Completed) 1 ea PRN PRN N/A 06/25/17 16:15 06/25/18 16:14 Albuterol (Ventolin Hfa Inhaler) 2 puffs Q4H PRN INH 06/25/17 16:15 07/25/17 16:14 Amiodarone HCl (Cordarone Tab) 200 mg BID PO 06/25/17 21:00 07/25/17 20:59 07/01/17 08:35 200 MG Aspirin (Ecotrin Tab) 81 mg QAM PO 06/26/17 09:00 07/26/17 08:59 07/01/17 08:35 81 MG Duloxetine HCl (Cymbalta Cap) 60 mg DAILY PO 06/26/17 09:00 07/26/17 08:59 07/01/17 08:35 60 MG Gabapentin (Neurontin Tab) 600 mg TID PO 06/25/17 21:00 07/25/17 20:59 07/01/17 13:10 600 MG Albuterol/ Ipratropium (Duoneb) 3 ml QID PRN INH 06/25/17 16:15 07/25/17 16:14 07/01/17 10:50 3 ML Isosorbide Dinitrate (Isordil Tab) 20 mg TID@0700,1200,1700 PO 06/25/17 17:00 07/25/17 16:59 07/01/17 11:43 20 MG Pantoprazole Sodium (Protonix Tab) 40 mg QAM PO 06/26/17 09:00 07/26/17 08:59 07/01/17 08:35 40 MG Rosuvastatin Calcium (Crestor Tab) 40 mg HS PO 06/25/17 21:00 07/25/17 20:59 06/30/17 21:14 40 MG Warfarin Sodium (Coumadin Tab) 5 mg DAILY@1600 PO 06/25/17 20:00 07/25/17 19:59 Future Hold 06/29/17 16:29 5 MG Amlodipine Besylate (Norvasc Tab) 5 mg DAILY PO 06/27/17 09:00 07/26/17 08:59 07/01/17 08:35 5 MG Hydralazine HCl (Apresoline Tab) 25 mg TID PO 06/26/17 14:00 07/25/17 20:59 07/01/17 13:11 25 MG Metoprolol Succinate (Toprol Xl Tab) 50 mg QAM PO 06/27/17 09:00 07/27/17 08:59 07/01/17 08:35 50 MG Insulin Glargine (Lantus Solostar Pen) 8 units HS SC 06/29/17 21:00 07/29/17 20:59 06/30/17 21:24 8 UNITS Fluticasone/ Vilanterol (Breo Ellipta 100-25 Mcg/Inh) 1 puffs DAILY INH 07/01/17 09:00 07/31/17 08:59 07/01/17 08:34 1 PUFFS Heparin Sodium/ Dextrose 500 ml @ 31 mls/hr Q16H8M IV 07/01/17 12:45 07/31/17 12:44 07/01/17 13:10 31 MLS/HR Vital Signs: Date Time Temp Pulse Resp B/P (MAP) Pulse Ox O2 Delivery O2 Flow Rate FiO2 07/01/17 11:29 Nasal Cannula 5.0 07/01/17 11:01 36.6 73 20 125/81 (96) 92 Nasal Cannula 5.0 07/01/17 10:50 71 18 90 Nasal Cannula 5.0 07/01/17 08:00 Nasal Cannula 3.0 07/01/17 07:53 36.6 80 18 140/86 (104) 85 Nasal Cannula 07/01/17 04:00 Nasal Cannula 3.0 07/01/17 03:39 36.6 70 20 133/75 (94) 91 Nasal Cannula 3.0 06/30/17 23:59 Nasal Cannula 3.0 06/30/17 23:24 36.7 68 18 127/75 (92) 92 Nasal Cannula 3.0 06/30/17 21:09 36.6 94 18 110/63 (79) 94 Nasal Cannula 2.0 06/30/17 20:00 Nasal Cannula 2.0 06/30/17 15:27 37.1 66 18 112/76 (88) 90 Nasal Cannula 2.0 06/30/17 15:00 Nasal Cannula 2.0 Laboratory Results: Last 24 Hours Test 06/30/17 16:15 06/30/17 21:12 07/01/17 06:02 07/01/17 06:47 Bedside Glucose 285 mg/dl 144 mg/dl 130 mg/dl Prothrombin Time 18.0 SECONDS Prothromb Time International Ratio 1.7 Sodium Level 138 mmol/L Potassium Level 3.8 mmol/L Chloride Level 102 mmol/L Carbon Dioxide Level 29 mmol/L Anion Gap 7.0 mmol/L Blood Urea Nitrogen 52 mg/dl Creatinine 3.32 mg/dl Est Creatinine Clear Calc Drug Dose 27.9 ml/min Estimated GFR () 21.7 Estimated GFR (Non- 18.7 BUN/Creatinine Ratio 15.5 Random Glucose 132 mg/dl Calcium Level 8.8 mg/dl Iron Level 48 mcg/dl Total Iron Binding Capacity 305 mcg/dl Transferrin 228 mg/dl Transferrin % Saturation 15 % Test 07/01/17 07:27 07/01/17 11:15 Bedside Glucose 150 mg/dl 167 mg/dl
--- NOTE | 2017-07-01 15:57 | Progress Note ---
Medicine Progress Note Date & Time of Visit: Jul 01, 2017 at 15:48. Subjective Pt was seen an examined Sitting in bed with no distress with at bedside Pt said that early he was feeling more SOB He received Lasix and said that now he feels a little better denies any chest pain, palpitation and dizziness Objective Last 8 Hrs Date Time Temp Pulse Resp B/P (MAP) Pulse Ox O2 Delivery O2 Flow Rate FiO2 07/01/17 13:18 83 07/01/17 11:29 Nasal Cannula 5.0 07/01/17 11:01 36.6 73 20 125/81 (96) 92 Nasal Cannula 5.0 07/01/17 10:50 71 18 90 Nasal Cannula 5.0 07/01/17 08:00 Nasal Cannula 3.0 07/01/17 07:53 36.6 80 18 140/86 (104) 85 Nasal Cannula Physical Exam: General- No acute distress Head- atraumatic Eyes- PERRL, EOMI ENT- oropharynx clear Neck- supple, no JVD Lungs- Mild wheezing Heart- +systolic murmur Abdomen- normal bowel sounds, soft Extremities- +edema, no calf tenderness Neuro- alert, oriented x 3; PERRL, EOMI Skin- warm & dry Laboratory Results: Last 24 Hours Test 06/30/17 16:15 06/30/17 21:12 07/01/17 06:02 07/01/17 06:47 Bedside Glucose 285 mg/dl 144 mg/dl 130 mg/dl Prothrombin Time 18.0 SECONDS Prothromb Time International Ratio 1.7 Sodium Level 138 mmol/L Potassium Level 3.8 mmol/L Chloride Level 102 mmol/L Carbon Dioxide Level 29 mmol/L Anion Gap 7.0 mmol/L Blood Urea Nitrogen 52 mg/dl Creatinine 3.32 mg/dl Est Creatinine Clear Calc Drug Dose 27.9 ml/min Estimated GFR () 21.7 Estimated GFR (Non- 18.7 BUN/Creatinine Ratio 15.5 Random Glucose 132 mg/dl Calcium Level 8.8 mg/dl Iron Level 48 mcg/dl Total Iron Binding Capacity 305 mcg/dl Transferrin 228 mg/dl Transferrin % Saturation 15 % Test 07/01/17 07:27 07/01/17 11:15 Bedside Glucose 150 mg/dl 167 mg/dl Assessment & Plan Acute on chronic systolic heart failure ProBNP on admission 5122 CXR on admission showed no acute findings. Continue IV lasix 10mg BID Cardiology on board Plan for AICD placement on Continue metoprolol 07/01 Continue to have SOB with minimal exertion Received Lasix 20mgx1 today Will hold tonight dose .lasix Check BMP in am Monitor I/O Plan for AICD in am will keep NPO Recent ECHO showed * The left ventricle is normal in size. * Septal motion is consistent with conduction abnormality. * Left ventricular systolic function is moderately reduced. * Ejection Fraction = 35-40%. * The right ventricular systolic function is normal. * The left atrium is moderately dilated. * The right atrium is moderately dilated. * The aortic valve is sclerotic. * Moderate aortic stenosis. * There is mild mitral regurgitation Chest Pain Prior history of nonischemic cardiomyopathy, mild coronary atherosclerosis by cardiac catheterization 07/02/16 S/P nuclear stress test is performed yesterday suggests ongoing nonischemic cardiomyopathy rather than new obstructive CAD Continue Statin, aspirin, and metoprolol Continue monitor in tele Resolved Paroxysmal Afib Rate control with amiodarone and metoprolol On Coumadin. INR 1.7 today Coumadin on hold for AICD placement on Starting on heparin drip Chronic kidney disease stage 4 Still elevated from recent baseline ~2.5 Creatine 3.3 creatinine today Avoid nephrotoxic agent Nephrology on board continue monitor BMP Anemia History of retroperitoneal bleed Hgb stable DM II Last a1c 9.5 Continue holding oral meds Insulin sliding scale coverage Monitor BS DVT px on coumadin Coumadin on hold INR 1.7 On heparin drip CODE STATUS FULL CODE Disposition Continue telemetry Current Inpatient Medications: Current Inpatient Medications Medications (Trade) Dose Ordered Sig/Larry Route Start Time Stop Time Status Last Admin Dose Admin Miscellaneous Information (Consult Glycemic Management Pharmacy) 1 ea UD PRN N/A 06/25/17 16:00 07/25/17 15:59 Insulin Aspart (novoLOG ASPART) SLIDING SCALE If C... ACHS SC 06/25/17 21:00 07/25/17 20:59 07/01/17 11:46 9 UNITS Glucose (Glucose 40% Gel) 15-30 GRAMS 15 GRAMS... UD PRN PO 06/25/17 16:00 07/25/17 15:59 Glucose (Glucose Chew Tab) 4-8 Tablets 4 Tabl... UD PRN PO 06/25/17 16:00 07/25/17 15:59 Dextrose (Dextrose 50% 50ML Syringe) 25-50ML OF 50% DW IV FOR... UD PRN IV 06/25/17 16:00 07/25/17 15:59 Glucagon (Glucagon Inj) 1 mg UD PRN SQ 06/25/17 16:00 07/25/17 15:59 Acetaminophen (Tylenol Tab) 650 mg Q4H PRN PO 06/25/17 16:00 07/25/17 15:59 Al Hydrox/Mg Hydrox/Simethicone (Maalox Max Susp) 15 ml Q4H PRN PO 06/25/17 16:00 07/25/17 15:59 Magnesium Hydroxide (Milk Of Magnesia Susp) 30 ml Q12H PRN PO 06/25/17 16:00 07/25/17 15:59 Miscellaneous (Iv Fluids Completed) 1 ea PRN PRN N/A 06/25/17 16:15 06/25/18 16:14 Albuterol (Ventolin Hfa Inhaler) 2 puffs Q4H PRN INH 06/25/17 16:15 07/25/17 16:14 Amiodarone HCl (Cordarone Tab) 200 mg BID PO 06/25/17 21:00 07/25/17 20:59 07/01/17 08:35 200 MG Aspirin (Ecotrin Tab) 81 mg QAM PO 06/26/17 09:00 07/26/17 08:59 07/01/17 08:35 81 MG Duloxetine HCl (Cymbalta Cap) 60 mg DAILY PO 06/26/17 09:00 07/26/17 08:59 07/01/17 08:35 60 MG Gabapentin (Neurontin Tab) 600 mg TID PO 06/25/17 21:00 07/25/17 20:59 07/01/17 13:10 600 MG Albuterol/ Ipratropium (Duoneb) 3 ml QID PRN INH 06/25/17 16:15 07/25/17 16:14 07/01/17 10:50 3 ML Isosorbide Dinitrate (Isordil Tab) 20 mg TID@0700,1200,1700 PO 06/25/17 17:00 07/25/17 16:59 07/01/17 11:43 20 MG Pantoprazole Sodium (Protonix Tab) 40 mg QAM PO 06/26/17 09:00 07/26/17 08:59 07/01/17 08:35 40 MG Rosuvastatin Calcium (Crestor Tab) 40 mg HS PO 06/25/17 21:00 07/25/17 20:59 06/30/17 21:14 40 MG Warfarin Sodium (Coumadin Tab) 5 mg DAILY@1600 PO 06/25/17 20:00 07/25/17 19:59 Future Hold 06/29/17 16:29 5 MG Amlodipine Besylate (Norvasc Tab) 5 mg DAILY PO 06/27/17 09:00 07/26/17 08:59 07/01/17 08:35 5 MG Hydralazine HCl (Apresoline Tab) 25 mg TID PO 06/26/17 14:00 07/25/17 20:59 07/01/17 13:11 25 MG Metoprolol Succinate (Toprol Xl Tab) 50 mg QAM PO 06/27/17 09:00 07/27/17 08:59 07/01/17 08:35 50 MG Insulin Glargine (Lantus Solostar Pen) 8 units HS SC 06/29/17 21:00 07/29/17 20:59 06/30/17 21:24 8 UNITS Fluticasone/ Vilanterol (Breo Ellipta 100-25 Mcg/Inh) 1 puffs DAILY INH 07/01/17 09:00 07/31/17 08:59 07/01/17 08:34 1 PUFFS Heparin Sodium/ Dextrose 500 ml @ 31 mls/hr Q16H8M IV 07/01/17 12:45 07/31/17 12:44 07/01/17 13:10 31 MLS/HR
--- NOTE | 2017-07-01 16:14 | PULMONARY FUNCTION TEST ---
Spirometry shows a mild obstructive pattern. Repeat study done following bronchodilator showed no change in function. Flow volume loops were consistent with spirometric findings. Lung volumes show a normal FRC, RV and TLC. Diffusion capacity is minimally reduced at 69%. When corrected for alveolar ventilation, it was 133%.
[2017-07-01] MEDS: ROSUVASTATIN CALCIUM 20 MG TAB PO SCH (20:25)
[2017-07-01 20:32] LABS: PTT PATIENT 51.1 SECONDS (21.0-31.0)
[2017-07-01] MEDS: INSULIN GLARGINE SOLOSTAR 100 UNITS/ML 3 ML PEN SC SCH (21:01)
[2017-07-02] VITALS (11 sets, daily range): BP systolic 113–148; BP diastolic 58–88; PULSE 61–88; TEMP 36.5–37.1; O2SAT 90–96
[2017-07-02] MEDS: HEPARIN 25,000 UNIT/500ML D5W 500 ML IV SCH ×2 (04:48→07:00)
[2017-07-02] MEDS ORDERED: CEFAZOLIN SOD 1000MG/7.5 ML IV PUSH IV SCH (06:00)
[2017-07-02] MEDS ORDERED: CEFAZOLIN 2000MG IV PUSH 15 ML IV SCH (06:00)
[2017-07-02] MEDS ORDERED: CEFAZOLIN IV 2,000 MG in SYRINGE 0 ML IV SCH (06:00)
[2017-07-02 06:15] LABS: HEMATOCRIT 27.4 % (42-52); HEMOGLOBIN 8.6 g/dL (14.0-18.0); MEAN CELL VOLUME 88.4 fL (80-100); MEAN CORPUSCULAR HEMOGLOBIN 27.7 pg (25-34); MEAN CORPUSCULAR HGB CONC 31.4 g/dl (32-36); MEAN PLATELET VOLUME 8.2 fL (7.4-10.4); PLATELET COUNT 172 K/uL (130-400); RED CELL DISTRIBUTION WIDTH CV 16.8 % (11.5-14.5); RED CELL DISTRIBUTION WIDTH SD 54.6 fL (36.4-46.3); WHITE BLOOD COUNT 5.93 K/uL (4.8-10.8)
[2017-07-02 06:41] LABS: INR 1.3 (0.9-1.1)
[2017-07-02 06:43] LABS: CALCIUM 8.5 mg/dl (8.5-10.1); CREATININE 3.13 mg/dl (0.60-1.40); POTASSIUM 3.8 mmol/L (3.5-5.1); PTT PATIENT 60.1 SECONDS (21.0-31.0)
[2017-07-02] MEDS: METOPROLOL SUCC 50MG EXT REL TAB PO SCH (08:20)
[2017-07-02] MEDS: ISOSORBIDE DINITRATE 10 MG TAB PO SCH ×3 (08:20→17:14)
[2017-07-02] MEDS: AMIODARONE 200 MG TAB PO SCH ×2 (08:20→21:16)
[2017-07-02] MEDS: AMLODIPINE BESYLATE 5 MG TAB PO SCH (08:21)
[2017-07-02] MEDS: FLUTICASONE FUROATE-VILANTEROL 60 PUFFS INH INH SCH (08:21)
[2017-07-02] MEDS: INSULIN ASPART 100 UNITS/ML 3 ML PEN SC SCH ×4 (08:22→21:20)
[2017-07-02] MEDS: GABAPENTIN 600 MG TAB PO SCH ×3 (08:36→21:17)
[2017-07-02] MEDS: DULOXETINE HCL 60 MG CAP PO SCH (09:00)
[2017-07-02] MEDS: ASPIRIN 81 MG ECTAB PO SCH (09:00)
[2017-07-02] MEDS: PANTOprazole SOD 40 MG TAB PO SCH (09:00)
--- NOTE | 2017-07-02 11:09 | Cardiology Follow-Up ---
Subjective Date of Service: Jul 02, 2017. Pt evaluation today including: conversation w/ patient, physical exam, lab review, review of studies, conversation w/ employee relations consultant, review of inpatient medication list History of Present Illness This is a very pleasant but complex 62-year-old gentleman. He has a multitude of cardiac abnormalities as well as long-standing hypertension and chronic renal insufficiency. He has had a nonischemic cardiomyopathy and has had catheterization 3 times, most recently July 04, 2016 which showed nonobstructive coronary artery disease. In March 2017 he had a left ventricular ejection fraction in 35-40% range with moderate concentric left ventricular hypertrophy and moderate aortic stenosis, he was treated medically however he continued to have difficulties including what appeared to be influenza A followed by pneumonia and acute kidney disease with congestive heart failure in May 2017. He was hospitalized from May 23 - June 10, 2017. His renal insufficiency required transient dialysis, he was also observed to have atrial fibrillation (which has continued intermittently) and he developed a left-sided retroperitoneal hematoma felt secondary to dialysis catheter placement and anticoagulation. He required blood transfusions for this. He was started on oral amiodarone for his atrial fibrillation, as well as warfarin. He then presented on June 26, 2017 with recurrent shortness of breath. Here his evaluation has included echocardiography with an ejection fraction of initially reported as 35-40% on arrival (although that may be an overestimate based on subsequent review), and moderate aortic stenosis. He had a pharmacologic Cardiolite study performed on June 29, 2017, this study showed no evidence of ischemia. The left ventricle was mildly dilated both on stress and at rest, his left ventriculogram demonstrated global hypokinesis with an ejection fraction of 30%. Electrocardiography has demonstrated a very wide left bundle branch block with first-degree AV block, QRS duration is over 200 ms and his GA interval is about 250 ms. He feels well this morning, he still has some difficulty with orthopnea but has not been having chest discomfort or palpitations. Social History Smoking Status: Never Smoker History of Alcohol Use: No Review of Systems Respiratory: + cough (occasional), + shortness of breath, + dyspnea on exertion , + dyspnea at rest, No wheezing Cardiac: + edema, No chest pain, No PND, No palpitations Medications Cardiovascular: Item Value Date Time Amlodipine 5 mg 06/27/17 0900 Besylate DAILY/PO 07/02/17 0821 (Norvasc Tab) Metoprolol 50 mg 06/27/17 0900 Succinate QAM/PO 07/02/17 0820 (Toprol Xl Tab) Hydralazine HCl 25 mg 06/26/17 1400 (Apresoline Tab) TID/PO 07/02/17 0820 Aspirin 81 mg 06/26/17 0900 (Ecotrin Tab) QAM/PO Amiodarone HCl 200 mg 06/25/17 2100 (Cordarone Tab) BID/PO 07/02/17 0820 Rosuvastatin 40 mg 06/25/17 2100 Calcium HS/PO 07/01/172024 (Crestor Tab) Isosorbide 20 mg 06/25/17 1700 Dinitrate TID@0700,1200,1700/PO 07/02/17 0820 (Isordil Tab) Objective Vital Signs Past 12 Hours Date Time Temp Pulse Resp B/P (MAP) Pulse Ox O2 Delivery O2 Flow Rate FiO2 07/02/17 08:00 Nasal Cannula 4.0 07/02/17 07:38 36.7 72 22 146/84 (104) 93 Room Air Diffusion Mask 07/02/17 05:51 37.1 67 19 132/73 (92) 93 Nasal Cannula 3.0 07/02/17 04:06 Nasal Cannula 3.0 07/02/17 00:31 36.8 63 20 132/78 (96) 95 Nasal Cannula 5.0 07/02/17 00:01 Nasal Cannula 3.0 Last Recorded Weight-Kilograms: 113.300 Physical Exam Constitutional: Level of Distress: mild distress Lungs: Respiratory effort: no dyspnea, good air movement Auscultation: pertinent finding (mildly decreased BS at baseline) Cardiovascular: Heart Auscultation: RRR, II/ KACIE Peripheral Pulses: Bruits: none appreciated Extremities: pertinent finding (Trace lower extremity edema) Data Laboratory Results: Last 24 Hours Test 07/01/17 11:15 07/01/17 16:03 07/01/17 19:30 07/01/17 20:33 Bedside Glucose 167 mg/dl 127 mg/dl 268 mg/dl Activated Partial Thromboplast Time 51.1 SECONDS Partial Thromboplastin Ratio 2.0 Test 07/02/17 06:05 07/02/17 06:40 White Blood Count 5.93 K/uL Red Blood Count 3.10 M/uL Hemoglobin 8.6 g/dL Hematocrit 27.4 % Mean Corpuscular Volume 88.4 fL Mean Corpuscular Hemoglobin 27.7 pg Mean Corpuscular Hemoglobin Concent 31.4 g/dl RDW Standard Deviation 54.6 fL RDW Coefficient of Variation 16.8 % Platelet Count 172 K/uL Mean Platelet Volume 8.2 fL Prothrombin Time 13.5 SECONDS Prothromb Time International Ratio 1.3 Activated Partial Thromboplast Time 60.1 SECONDS Partial Thromboplastin Ratio 2.3 Sodium Level 137 mmol/L Potassium Level 3.8 mmol/L Chloride Level 101 mmol/L Carbon Dioxide Level 30 mmol/L Anion Gap 6.0 mmol/L Blood Urea Nitrogen 46 mg/dl Creatinine 3.13 mg/dl Est Creatinine Clear Calc Drug Dose 29.5 ml/min Estimated GFR () 23.3 Estimated GFR (Non- 20.1 BUN/Creatinine Ratio 14.7 Random Glucose 157 mg/dl Calcium Level 8.5 mg/dl Bedside Glucose 170 mg/dl Telemetry reviewed: Sinus rhythm, no atrial fibrillation since before yesterday Assessment and Plan 1. Cardiomyopathy: He appears to have a nonischemic cardiomyopathy with an ejection fraction which has been decreasing, and although there is some discrepancy in his ejection fraction it is in the 30-40% range, probably closer to 30%. Given the magnitude of his conduction abnormality it is likely that dyssynchrony is at least partially responsible for his cardiomyopathy. In addition he has first-degree AV block and atrial arrhythmias, it has been difficult to titrate beta-blockade with his conduction abnormality. I believe resynchronization therapy is the best option to try to improve his left ventricular function as well as his heart failure symptoms. He is agreeable. 2. Congestive heart failure: He does not have evidence of much fluid overload currently (he does not have heart failure on chest x-ray or exam) but he has significant heart failure symptoms (NYHA class III) including severe dyspnea on exertion and orthopnea. As such he qualifies for biventricular pacing. 3. Risk of sudden cardiac : His ejection fraction is in the range where we should consider ICD implantation, although with biventricular pacing and use of optimal medical management his ejection fraction may improve substantially. A pacemaker itself may be adequate, however the difficulty in upgrading to a biventricular ICD if needed in the future may make it more prudent to place an ICD currently. This procedure is the same, he carries the same risk, the device is a little bit bigger and may need to be replaced sooner but that may be preferable to requiring upgrade to a biventricular ICD in the future. We are planning on biventricular ICD implantation this afternoon as long as the schedule allows. Patient is agreeable. Thank you for allowing me to participate in his care.
[2017-07-02] MEDS ORDERED: ~HEPARIN DRIP~STOP ORDER SCH (11:15)
[2017-07-02] MEDS ORDERED: LACTATED RINGER'S 1000ML 1,000 ML IV ONE (12:00)
[2017-07-02] MEDS ORDERED: LIDOCAINE HCL 1% 20 ML VIAL ONE ×2 (13:00→13:13)
[2017-07-02] MEDS ORDERED: MIDAZOLAM HCL 5 MG/ML 1 ML VIAL ONE (13:00)
[2017-07-02] MEDS ORDERED: CEFAZOLIN SOD 1 GM VIAL ONE (13:00)
[2017-07-02] MEDS ORDERED: FENTANYL CITRATE INJ 50 MCG/1 ML 2 ML VIAL ONE (13:00)
[2017-07-02] MEDS ORDERED: BACITRACIN OINT 0.9 GM PKT ONE (13:00)
--- NOTE | 2017-07-02 13:10 | Pre Sedation Assessment ---
Pre Sedation Assessment General Date of Sedation: Jul 02, 2017. Vital Signs Past 12 Hours Date Time Temp Pulse Resp B/P (MAP) Pulse Ox O2 Delivery O2 Flow Rate FiO2 07/02/17 12:12 36.6 67 20 148/78 (101) 91 Nasal Cannula 3.0 07/02/17 12:00 Nasal Cannula 4.0 07/02/17 08:00 Nasal Cannula 4.0 07/02/17 07:38 36.7 72 22 146/84 (104) 93 Room Air Diffusion Mask 07/02/17 05:51 37.1 67 19 132/73 (92) 93 Nasal Cannula 3.0 07/02/17 04:06 Nasal Cannula 3.0 Review Cardiovascular: + irregularly irregular Lungs: + decreased breath sounds Pre-Sedation Airway Assessment Smoking Status: Never Smoker Thyro-mental Distance: > 3 Finger Breadths Mallampati Classification: Class II ASA Classification: Class III Procedure Planning Contraindications for Sedation: None Current Medications Reviewed: Yes Notes The planned sedation has been discussed with the patient. Informed Consent was obtained. I have identified the patient, determined the appropriateness of sedation and have assessed the patient immediately prior to the procedure. All medicine(s) and interventions are by my order.
--- NOTE | 2017-07-02 14:14 | Pharmacy Progress Note ---
Pharmacy Glycemic Short Note 2 Date of Service Jul 02, 2017. OUTPATIENT ANTIDIABETIC REGIMEN: * Lantus 45 units sq q PM * Novolog 7 units breakfast, 14 units with lunch & dinner * Total insulin = 80 units/day * Pt had a low on 06/26/17 when this was continued inpatient ASSESSMENT: * 62yo T2DM male with sub-adequate outpatient control per recent A1c. Most likely non-compliance with outpatient insulin regimen as Pt had a low when outpatient regimen was continued inpatient and pt currently requiring significantly less insulin/day as compared to outpatient regimen. * Patient has been receiving ~35 units of insulin per day fairly consistently. * Fasting BSG has been trending up (127 --> 150 --> 170), so Lantus dose will be increased slightly tonight. PLAN FOR INPATIENT GLYCEMIC CONTROL: * Basal insulin * -[id number]-u-[id number]- -8- -u-n-i-t-s- -S-Q- -H-S- ->- Lantus 10 units SQ HS * Bolus insulin * NovoLog per scale ACHS or Q6hrs while NPO * Goal Range: Low 120 mg/dL - High 150 mg/dL * Correction Factor: 25 mg/dL/unit * Nutritional / Prandial insulin per carb ratio of 1 unit per 7 grams CHO consumed PLAN FOR DISCHARGE: * A1c 9.5% on 05/27/17. Goal A1c ~ 8-8.5% per Elements of Diabetes Care Scoring Scale * Suspect non-compliance with outpatient insulin regimen as Pt had a low when outpatient regimen was continued inpatient and pt currently requiring significantly less insulin/day as compared to outpatient regimen. * Recommend changing outpatient regimen to: * Lantus 8 units SQ HS * NovoLog 8 units with meals * Follow up with PCP to continue titrating dosing. Suggesting following up within 1-2 weeks for A1c >9%
--- NOTE | 2017-07-02 15:12 | [facility] Operative Report ---
Operative Report Operative Date Jul 02, 2017. Pre-Operative Diagnosis Severe nonischemic cardiomyopathy Post-Operative Diagnosis Same Procedure(s) Performed Biventricular ICD implantation Surgeon Dr. Oseguera Clinical Staff Educator Surgeon(s) None Estimated Blood Loss 50 cc Findings Good atrial and ventricular lead placement, atrial threshold slightly high that expected to improve and excellent sensing. Excellent LV lead position, diaphragmatic pacing at some factors but good threshold overall. Specimens None Anesthesia Local with sedation Complication(s) None Disposition PCU Description of Procedure After obtaining informed consent for the procedure, the patient was brought to the laboratory and prepped and draped in the standard sterile manner. The left prepectoral region was anesthetized with 1% lidocaine local anesthetic and left axillary venipuncture was performed by percutaneous technique and a guidewire placed through the left subclavian vein into the superior vena cava. The area was further infiltrated with 1% lidocaine local anesthetic and a 5 cm incision was made parallel to the left clavicle and 2 cm below it and carried down to the anterior pectoralis fascia. An ICD pocket was formed by blunt dissection anterior to the pectoralis fascia and a bacitracin-soaked sponge (50,000 units in 50 cc normal saline solution) was placed in the pocket. A 10.5 [place] Med[employer] lead introducer was placed over the guidewire into the left subclavian vein, the dilator and guidewire were removed and a bipolar active fixation steroid tipped ventricular ICD lead was advanced through the introducer into the superior vena cava. A guidewire was placed through the introducer and the introducer was stripped from the lead and guidewire. An 8 [place] Med[employer] lead introducer was placed over the guidewire into the left subclavian vein, the dilator and guidewire were removed and a bipolar active fixation steroid tipped atrial lead was advanced through the introducer into the superior vena cava. A guidewire was placed back through the introducer and the introducer was stripped from the lead and guidewire. Using a curved stylette the ventricular lead was advanced through the right ventricular outflow tract into the pulmonary artery and then using a straight stylette was positioned in the right ventricular apex. The screw was extended fixing the lead in position. Pacing and sensing thresholds were evaluated in bipolar configuration and are recorded on the implant data sheet. Diaphragmatic pacing was evaluated at a 10 V bipolar output as indicated on the data sheet. Using a curved stylette the atrial lead was positioned in the region of the atrial appendage and the screw extended fixing the lead in position. Several locations were tested before adequate measurements were obtained. Pacing and sensing thresholds were evaluated in bipolar configuration and are recorded on the implant data sheet. Diaphragmatic pacing was evaluated at a 10 V bipolar output as indicated on the data sheet. Once the leads were in position they were attached to the anterior pectoralis fascia using 1 suture of 2-0 silk around each lead collar. Left axillary venipuncture was performed through the open incision and a guidewire advanced through the left subclavian vein into the right atrium and a Henry coronary sinus sheath was advanced to position in the right atrium. The curved obturator was placed through the sheath and using x-ray dye the os of the coronary sinus was identified. A guidewire was placed through the introducer into the coronary sinus and the Henry sheath was advanced into the coronary sinus. To minimize dye use due to his renal insufficiency the guidewire was advanced into a posterolateral vessel, a guide was advanced over the guidewire into this vessel and angiography was performed within this vessel is. A good vessel was identified and a quadripolar coronary sinus catheter was advanced over a guidewire into good distal position. The left ventricular pacing threshold was evaluated in various configurations, as recorded on the implant data sheet. Diaphragmatic pacing was evaluated at a 10 V output, as indicated on the data sheet. Once this lead was in position the introducer system was removed from the lead and the lead was attached to the anterior pectoral fascia using 2 sutures of 2-0 silk around the lead collar. An additional suture of 2-0 silk was placed around each of the atrial and ventricular lead collars as well. The bacitracin-soaked sponge was removed from the pocket, hemostasis was obtained, the ICD was attached to the leads and placed in the pocket with the leads coiled beneath it. The incision was closed with a running double subcutaneous closure of 3-0 V-Lock absorbable suture, followed by running subcuticular skin closure of 4-0 V-Lock absorbable suture. Bacitracin ointment was placed on the incision and a pressure dressing applied. I attest to the content of the Intraoperative Record and any orders documented therein. Any exceptions are noted below.
--- NOTE | 2017-07-02 15:18 | Post Sedation Assessment ---
Post Sedation Assessment General Date of Sedation Jul 02, 2017. Vital Signs: Vital Signs Past 12 Hours Date Time Temp Pulse Resp B/P (MAP) Pulse Ox O2 Delivery O2 Flow Rate FiO2 07/02/17 12:12 36.6 67 20 148/78 (101) 91 Nasal Cannula 3.0 07/02/17 12:00 Nasal Cannula 4.0 07/02/17 08:00 Nasal Cannula 4.0 07/02/17 07:38 36.7 72 22 146/84 (104) 93 Room Air Diffusion Mask 07/02/17 05:51 37.1 67 19 132/73 (92) 93 Nasal Cannula 3.0 07/02/17 04:06 Nasal Cannula 3.0 Post Procedure Recovery Score Activity: (2) Moves 4 extremities * Respiration: (2) Deep breath/cough Circulation: (2) +/-20% PreAnes Value Consciousness: (2) Fully Awake Oxygen Saturation: (1) O2 needed for >90% Post Anesthesia Score: 9 Discharge Sedation Level of Care: Fast Track Phase II Post Sedation Plan On clinical assessment, the patient appears to have tolerated the sedation without complications. Patient is recovering as anticipated. Patient will continue to be monitored by nursing and may be discharged when sedation discharge criteria are met per below protocol. Upon Completions of procedure and additional 15 minutes continue every 5 minute vital signs and the P.A.R. score; then discharge to a Phase I or Fast Track to Phase II per the following guidelines: * Discharge Patient to appropriate Phase II area if PAR is 8 or greater or return to pre- procedure baseline. The post - procedure orders will be as directed. * If PAR score is less than 8 or not return to pre-procedure baseline then patient will follow Phase I monitoring till PAR is reached for Phase II. The Phase I may be done in procedure room or may call to secure a Phase I area. * If naloxone or flumazenil are used for reversal, hold in Phase I for an additional 60 -120 minutes before discharge to Phase II. Please call the Sedation Physician to re-evaluate and complete post-note for discharge to Phase II area. Do NOT discharge from procedure sedation or Phase 1 until post- sedation evaluation note is complete by procedure /sedation MD Sedation Discharge Instructions to be given to the patient at discharge to home.
[2017-07-02] MEDS ORDERED: KETOROLAC TROMETHAMINE 10 MG TAB PO PRN (15:30)
[2017-07-02] MEDS ORDERED: ACETAMINOPHEN 325 MG TAB PO PRN (15:30)
--- NOTE | 2017-07-02 16:27 | Cardiology Follow-Up ---
Subjective General Date of Service: Jul 02, 2017. Chief Complaint: Shortness of breath Pt evaluation today including: conversation w/ patient, physical exam History of Present Illness The patient is a 62 year old male seen in follow up s/p Bi V PM, AICD earlier today. Patient tolerated procedure well AV sequential pacing noted on telemetry at present. Post Procedure EKG SR with AV sequential pacing. Allergies Coded Allergies: No Known Allergies (Verified , 05/23/17) Social History Smoking Status: Never Smoker Hx Tobacco Use In Past Year?: No Hx Alcohol Use - Type And Amou: No Hx Substance Use - Type And Am: No Problem List Medical Problems: (1) CHF (congestive heart failure) Status: Acute (2) CHF (congestive heart failure) Status: Acute (3) Diffuse abdominal pain Status: Acute (4) Elevated troponin Status: Acute (5) Precordial chest pain Status: Acute (6) Renal cyst Status: Acute (7) Shortness of breath Status: Acute (8) Shortness of breath Status: Acute Physical Exam Vital Signs Last Vital Signs Documentation Date Time Temp Pulse Resp B/P (MAP) Pulse Ox O2 Delivery O2 Flow Rate FiO2 07/02/17 15:05 68 16 128/79 (95) 98 Nasal Cannula 2 07/02/17 12:12 36.6 Physical Exam Constitutional: Level of Distress: mild distress Psychiatric: Mental Status: active & alert Head: normocephalic Eyes: EOM: EOMI ENMT: normal ENT inspection, hearing grossly normal Neck: supple, no masses Lungs: Respiratory effort: no dyspnea, good air movement Auscultation: pertinent finding (mildly decreased BS at baseline) Cardiovascular: Heart Auscultation: RRR, II/ KACIE Peripheral Pulses: Bruits: none appreciated Abdomen: Bowel Sounds: normal Inspection & Palpation: soft, no tenderness, guarding & rebound, no masses Musculoskeletal: normal strength (5/5 throughout) Extremities: pertinent finding (Trace lower extremity edema) Neurologic: Gait & Station: pertinent finding (no focal neuro deficits ) Cranial Nerves: grossly intact Sensation: grossly intact Assessment and Plan Assessment and Plan Pharmacologic nuclear stress test performed today having been supervised, interpreted by the undersigned: Normal stress and resting perfusion, moderate to severe global left ventricular hypokinesis, calculated LVEF 30% Impression: 62-year-old male 1. Acute on chronic systolic heart failure, volume status improved -First-degree AV block, left bundle branch block with wide QRS complex -s/p BiV PM, AICD 07/02 2. Prior history of nonischemic cardiomyopathy, mild coronary atherosclerosis by cardiac catheterization 07/02/16, nuclear stress test is performed today suggests ongoing nonischemic cardiomyopathy rather than new obstructive CAD with high-quality perfusion images noted today. 3. Chronic kidney disease, creatinine improved to 3.3 07/02 off of diuretics. 4. Paroxysmal atrial flutter 5. History of retroperitoneal bleed last, now back on anticoagulation, hemoglobin stable, however below goal, he has therefore received IV iron this admission Plan: Hold heparin bridge today to reduce risk of pocket hematoma. Resume coumadin. Continue current medications. Holding furosemide today as he has been NPO. Repeat labs in am. Laboratory Results Last 24 Hours Test 07/01/17 19:30 07/01/17 20:33 07/02/17 06:05 07/02/17 06:40 Activated Partial Thromboplast Time 51.1 SECONDS 60.1 SECONDS Partial Thromboplastin Ratio 2.0 2.3 Bedside Glucose 268 mg/dl 170 mg/dl White Blood Count 5.93 K/uL Red Blood Count 3.10 M/uL Hemoglobin 8.6 g/dL Hematocrit 27.4 % Mean Corpuscular Volume 88.4 fL Mean Corpuscular Hemoglobin 27.7 pg Mean Corpuscular Hemoglobin Concent 31.4 g/dl RDW Standard Deviation 54.6 fL RDW Coefficient of Variation 16.8 % Platelet Count 172 K/uL Mean Platelet Volume 8.2 fL Prothrombin Time 13.5 SECONDS Prothromb Time International Ratio 1.3 Sodium Level 137 mmol/L Potassium Level 3.8 mmol/L Chloride Level 101 mmol/L Carbon Dioxide Level 30 mmol/L Anion Gap 6.0 mmol/L Blood Urea Nitrogen 46 mg/dl Creatinine 3.13 mg/dl Est Creatinine Clear Calc Drug Dose 29.5 ml/min Estimated GFR () 23.3 Estimated GFR (Non- 20.1 BUN/Creatinine Ratio 14.7 Random Glucose 157 mg/dl Calcium Level 8.5 mg/dl Test 07/02/17 11:17 Bedside Glucose 157 mg/dl
[2017-07-02] MEDS ORDERED: WARFARIN SOD 5 MG TAB PO ONE (17:00)
--- NOTE | 2017-07-02 19:43 | Progress Note ---
Medicine Progress Note Date & Time of Visit: Jul 02, 2017 at 19:38. Subjective Pt was seen and examined Sitting in chair with no distress Complaint of tenderness at the incision area from the surgery Denies any palpitation, dizziness and chest pain Objective Last 8 Hrs Date Time Temp Pulse Resp B/P (MAP) Pulse Ox O2 Delivery O2 Flow Rate FiO2 07/02/17 16:00 94 Nasal Cannula 4.0 07/02/17 15:38 36.8 88 20 137/88 (104) 92 Nasal Cannula 3.0 07/02/17 15:30 64 20 137/88 (104) 90 Nasal Cannula 4.0 07/02/17 15:15 36.6 64 20 135/75 (95) 94 Nasal Cannula 4.0 07/02/17 15:05 68 16 128/79 (95) 98 Nasal Cannula 2 07/02/17 14:50 70 16 125/81 (96) 98 Mask 10 07/02/17 12:12 36.6 67 20 148/78 (101) 91 Nasal Cannula 3.0 07/02/17 12:00 Nasal Cannula 4.0 Physical Exam: General- No acute distress Head- atraumatic Eyes- PERRL, EOMI ENT- oropharynx clear Neck- supple, no JVD Lungs- Mild wheezing Heart- +systolic murmur Abdomen- normal bowel sounds, soft Extremities- +edema, no calf tenderness Neuro- alert, oriented x 3; PERRL, EOMI Skin- warm & dry Laboratory Results: Last 24 Hours Test 07/01/17 20:33 07/02/17 06:05 07/02/17 06:40 07/02/17 11:17 Bedside Glucose 268 mg/dl 170 mg/dl 157 mg/dl White Blood Count 5.93 K/uL Red Blood Count 3.10 M/uL Hemoglobin 8.6 g/dL Hematocrit 27.4 % Mean Corpuscular Volume 88.4 fL Mean Corpuscular Hemoglobin 27.7 pg Mean Corpuscular Hemoglobin Concent 31.4 g/dl RDW Standard Deviation 54.6 fL RDW Coefficient of Variation 16.8 % Platelet Count 172 K/uL Mean Platelet Volume 8.2 fL Prothrombin Time 13.5 SECONDS Prothromb Time International Ratio 1.3 Activated Partial Thromboplast Time 60.1 SECONDS Partial Thromboplastin Ratio 2.3 Sodium Level 137 mmol/L Potassium Level 3.8 mmol/L Chloride Level 101 mmol/L Carbon Dioxide Level 30 mmol/L Anion Gap 6.0 mmol/L Blood Urea Nitrogen 46 mg/dl Creatinine 3.13 mg/dl Est Creatinine Clear Calc Drug Dose 29.5 ml/min Estimated GFR () 23.3 Estimated GFR (Non- 20.1 BUN/Creatinine Ratio 14.7 Random Glucose 157 mg/dl Calcium Level 8.5 mg/dl Test 07/02/17 16:45 Bedside Glucose 157 mg/dl Assessment & Plan Acute on chronic systolic heart failure ProBNP on admission 5122 CXR on admission showed no acute findings. Continue IV lasix 10mg BID Cardiology on board Plan for AICD placement on Continue metoprolol 07/02 SOB wit minimal exertion Check BMP in am Monitor I/O AICD placed today and tolerated procedure continue monitor in tele Recent ECHO showed * The left ventricle is normal in size. * Septal motion is consistent with conduction abnormality. * Left ventricular systolic function is moderately reduced. * Ejection Fraction = 35-40%. * The right ventricular systolic function is normal. * The left atrium is moderately dilated. * The right atrium is moderately dilated. * The aortic valve is sclerotic. * Moderate aortic stenosis. * There is mild mitral regurgitation Chest Pain Prior history of nonischemic cardiomyopathy, mild coronary atherosclerosis by cardiac catheterization 07/02/16 S/P nuclear stress test is performed yesterday suggests ongoing nonischemic cardiomyopathy rather than new obstructive CAD Continue Statin, aspirin, and metoprolol Continue monitor in tele Resolved Paroxysmal Afib Rate control with amiodarone and metoprolol On Coumadin. INR 1.3 today Coumadin resumed Heparin drip d/c Chronic kidney disease stage 4 Still elevated from recent baseline ~2.5 Creatine 3.1 creatinine today Avoid nephrotoxic agent Nephrology on board continue monitor BMP Anemia History of retroperitoneal bleed Hgb stable DM II Last a1c 9.5 Continue holding oral meds Insulin sliding scale coverage Monitor BS DVT px on coumadin Coumadin resume INR 1.3 On heparin drip CODE STATUS FULL CODE Disposition Continue telemetry Current Inpatient Medications: Current Inpatient Medications Medications (Trade) Dose Ordered Sig/Larry Route Start Time Stop Time Status Last Admin Dose Admin Miscellaneous Information (Consult Glycemic Management Pharmacy) 1 ea UD PRN N/A 06/25/17 16:00 07/25/17 15:59 Insulin Aspart (novoLOG ASPART) SLIDING SCALE If C... ACHS SC 06/25/17 21:00 07/25/17 20:59 07/02/17 17:46 10 UNITS Glucose (Glucose 40% Gel) 15-30 GRAMS 15 GRAMS... UD PRN PO 06/25/17 16:00 07/25/17 15:59 Glucose (Glucose Chew Tab) 4-8 Tablets 4 Tabl... UD PRN PO 06/25/17 16:00 07/25/17 15:59 Dextrose (Dextrose 50% 50ML Syringe) 25-50ML OF 50% DW IV FOR... UD PRN IV 06/25/17 16:00 07/25/17 15:59 Glucagon (Glucagon Inj) 1 mg UD PRN SQ 06/25/17 16:00 07/25/17 15:59 Acetaminophen (Tylenol Tab) 650 mg Q4H PRN PO 06/25/17 16:00 07/25/17 15:59 07/02/17 17:14 650 MG Al Hydrox/Mg Hydrox/Simethicone (Maalox Max Susp) 15 ml Q4H PRN PO 06/25/17 16:00 07/25/17 15:59 Magnesium Hydroxide (Milk Of Magnesia Susp) 30 ml Q12H PRN PO 06/25/17 16:00 07/25/17 15:59 Miscellaneous (Iv Fluids Completed) 1 ea PRN PRN N/A 06/25/17 16:15 06/25/18 16:14 Albuterol (Ventolin Hfa Inhaler) 2 puffs Q4H PRN INH 06/25/17 16:15 07/25/17 16:14 Amiodarone HCl (Cordarone Tab) 200 mg BID PO 06/25/17 21:00 07/25/17 20:59 07/02/17 08:20 200 MG Aspirin (Ecotrin Tab) 81 mg QAM PO 06/26/17 09:00 07/26/17 08:59 07/01/17 08:35 81 MG Duloxetine HCl (Cymbalta Cap) 60 mg DAILY PO 06/26/17 09:00 07/26/17 08:59 07/01/17 08:35 60 MG Gabapentin (Neurontin Tab) 600 mg TID PO 06/25/17 21:00 07/25/17 20:59 07/01/17 20:25 600 MG Albuterol/ Ipratropium (Duoneb) 3 ml QID PRN INH 06/25/17 16:15 07/25/17 16:14 07/01/17 10:50 3 ML Isosorbide Dinitrate (Isordil Tab) 20 mg TID@0700,1200,1700 PO 06/25/17 17:00 07/25/17 16:59 07/02/17 17:14 20 MG Pantoprazole Sodium (Protonix Tab) 40 mg QAM PO 06/26/17 09:00 07/26/17 08:59 07/01/17 08:35 40 MG Rosuvastatin Calcium (Crestor Tab) 40 mg HS PO 06/25/17 21:00 07/25/17 20:59 07/01/17 20:25 40 MG Amlodipine Besylate (Norvasc Tab) 5 mg DAILY PO 06/27/17 09:00 07/26/17 08:59 07/02/17 08:21 5 MG Hydralazine HCl (Apresoline Tab) 25 mg TID PO 06/26/17 14:00 07/25/17 20:59 07/02/17 08:20 25 MG Metoprolol Succinate (Toprol Xl Tab) 50 mg QAM PO 06/27/17 09:00 07/27/17 08:59 07/02/17 08:20 50 MG Fluticasone/ Vilanterol (Breo Ellipta 100-25 Mcg/Inh) 1 puffs DAILY INH 07/01/17 09:00 07/31/17 08:59 07/02/17 08:21 1 PUFFS Lactated Ringer's 1,000 ml @ 15 mls/hr Q24H ONCE IV 07/02/17 12:00 07/03/17 11:59 07/02/17 12:30 15 MLS/HR Cefazolin Sodium 2000 mg/Syringe 15 ml @ 3.75 mls/ min PREOP IV 07/02/17 06:00 07/03/17 05:59 Insulin Glargine (Lantus Solostar Pen) 10 units HS SC 07/02/17 21:00 08/01/17 20:59 Acetaminophen (Tylenol Tab) 650 mg Q4H PRN PO 07/02/17 15:30 08/01/17 15:29 Ketorolac Tromethamine (Toradol Tab) 10 mg Q6H PRN PO 07/02/17 15:30 07/07/17 15:29 Warfarin Sodium (Coumadin Tab) 5 mg DAILY@16 PO 07/03/17 16:00 08/02/17 15:59
[2017-07-02] MEDS: ROSUVASTATIN CALCIUM 20 MG TAB PO SCH (21:17)
[2017-07-02] MEDS: INSULIN GLARGINE SOLOSTAR 100 UNITS/ML 3 ML PEN SC SCH (21:19)
[2017-07-03] VITALS (7 sets, daily range): BP systolic 134–155; BP diastolic 70–86; PULSE 63–67; TEMP 36.6–37; O2SAT 91–98
--- NOTE | 2017-07-03 06:34 | DIAGNOSTIC IMAGING REPORT ---
CHEST 2 VIEWS ROUTINE CLINICAL HISTORY: Pacemaker insertion. COMPARISON STUDY: Chest radiograph June 25, 2017. FINDINGS: There has been interval placement of a left subclavian biventricular pacer/AICD. The tips project over the right atrial appendage and right ventricle as well as a third lead which extends through the coronary sinus and projecting over the left ventricle. Moderate cardiomegaly is noted without evidence for pulmonary edema. There is no consolidation. There is no pneumothorax or pleural effusion. Upper abdominal surgical clips are noted. IMPRESSION: No pneumothorax following placement of a left subclavian biventricular pacer/AICD. Electronically signed by: Balwinder Juarez M.D. 07/03/2017 6:33 AM Dictated Date/Time: 07/03/2017 6:31 AM
[2017-07-03 06:43] LABS: HEMATOCRIT 28.7 % (42-52); HEMOGLOBIN 9.1 g/dL (14.0-18.0); MEAN CORPUSCULAR HEMOGLOBIN 27.9 pg (25-34); MEAN CORPUSCULAR HGB CONC 31.7 g/dl (32-36); MEAN PLATELET VOLUME 8.7 fL (7.4-10.4); PLATELET COUNT 166 K/uL (130-400); RED CELL DISTRIBUTION WIDTH CV 16.7 % (11.5-14.5); RED CELL DISTRIBUTION WIDTH SD 54.3 fL (36.4-46.3); WHITE BLOOD COUNT 7.04 K/uL (4.8-10.8)
[2017-07-03 06:52] LABS: INR 1.2 (0.9-1.1); PTT PATIENT 32.8 SECONDS (21.0-31.0)
[2017-07-03 07:16] LABS: CALCIUM 8.9 mg/dl (8.5-10.1); CREATININE 2.73 mg/dl (0.60-1.40); POTASSIUM 3.9 mmol/L (3.5-5.1)
[2017-07-03] MEDS: AMIODARONE 200 MG TAB PO SCH ×2 (07:48→21:01)
[2017-07-03] MEDS: FLUTICASONE FUROATE-VILANTEROL 60 PUFFS INH INH SCH (07:48)
[2017-07-03] MEDS: METOPROLOL SUCC 50MG EXT REL TAB PO SCH (07:48)
[2017-07-03] MEDS: PANTOprazole SOD 40 MG TAB PO SCH (07:48)
[2017-07-03] MEDS: DULOXETINE HCL 60 MG CAP PO SCH (07:48)
[2017-07-03] MEDS: ISOSORBIDE DINITRATE 10 MG TAB PO SCH ×3 (07:49→16:36)
[2017-07-03] MEDS: GABAPENTIN 600 MG TAB PO SCH ×3 (07:49→21:01)
[2017-07-03] MEDS: ASPIRIN 81 MG ECTAB PO SCH (07:50)
[2017-07-03] MEDS: AMLODIPINE BESYLATE 5 MG TAB PO SCH (07:50)
[2017-07-03] MEDS: INSULIN ASPART 100 UNITS/ML 3 ML PEN SC SCH ×4 (07:52→21:09)
--- NOTE | 2017-07-03 12:52 | Cardiology Follow-Up ---
Subjective Date of Service: Jul 03, 2017. Pt evaluation today including: conversation w/ patient, physical exam, lab review, review of studies, conversation w/ leasing consultant, review of inpatient medication list History of Present Illness This is a very pleasant but complex 62-year-old gentleman. He has a multitude of cardiac abnormalities as well as long-standing hypertension and chronic renal insufficiency. He has had a nonischemic cardiomyopathy and has had catheterization 3 times, most recently July 04, 2016 which showed nonobstructive coronary artery disease. In March 2017 he had a left ventricular ejection fraction in 35-40% range with moderate concentric left ventricular hypertrophy and moderate aortic stenosis, he was treated medically however he continued to have difficulties including what appeared to be influenza A followed by pneumonia and acute kidney disease with congestive heart failure in May 2017. He was hospitalized from May 23 - June 10, 2017. His renal insufficiency required transient dialysis, he was also observed to have atrial fibrillation (which has continued intermittently) and he developed a left-sided retroperitoneal hematoma felt secondary to dialysis catheter placement and anticoagulation. He required blood transfusions for this. He was started on oral amiodarone for his atrial fibrillation, as well as warfarin. He then presented on June 26, 2017 with recurrent shortness of breath. Here his evaluation has included echocardiography with an ejection fraction of initially reported as 35-40% on arrival (although that may be an overestimate based on subsequent review), and moderate aortic stenosis. He had a pharmacologic Cardiolite study performed on June 29, 2017, this study showed no evidence of ischemia. The left ventricle was mildly dilated both on stress and at rest, his left ventriculogram demonstrated global hypokinesis with an ejection fraction of 30%. Electrocardiography has demonstrated a very wide left bundle branch block with first-degree AV block, QRS duration is over 200 ms and his NE interval is about 250 ms. A biventricular ICD was implanted yesterday without difficulty. He feels better this morning, he slept better and he is less short of breath today. He does not have any significant incisional discomfort. He did note some diaphragmatic pacing overnight which was alleviated by reprogramming his left ventricular lead. Social History Smoking Status: Never Smoker History of Alcohol Use: No Review of Systems Respiratory: + cough (occasional), + shortness of breath, + dyspnea on exertion , + dyspnea at rest, No wheezing Cardiac: + edema, No chest pain, No PND, No palpitations Medications Cardiovascular: 1 Item Value Date Time Warfarin Sodium 5 mg 07/03/17 1600 (Coumadin Tab) DAILY@16/PO Amlodipine 5 mg 06/27/17 0900 Besylate DAILY/PO 07/03/17 0750 (Norvasc Tab) Metoprolol 50 mg 06/27/17 0900 Succinate QAM/PO 07/03/17 0748 (Toprol Xl Tab) Hydralazine HCl 25 mg 06/26/17 1400 (Apresoline Tab) TID/PO 07/03/17 0749 Aspirin 81 mg 06/26/17 0900 (Ecotrin Tab) QAM/PO 07/03/17 0750 Amiodarone HCl 200 mg 06/25/17 2100 (Cordarone Tab) BID/PO 07/03/17 0748 Rosuvastatin 40 mg 06/25/17 2100 Calcium HS/PO 07/02/17 2117 (Crestor Tab) Isosorbide 20 mg 06/25/17 1700 Dinitrate TID@0700,1200,1700/PO 07/03/17 1156 (Isordil Tab) Objective Vital Signs Past 12 Hours Date Time Temp Pulse Resp B/P (MAP) Pulse Ox O2 Delivery O2 Flow Rate FiO2 07/03/17 12:00 Nasal Cannula 2.0 07/03/17 11:31 36.9 65 18 137/77 (97) 95 Nasal Cannula 2.0 07/03/17 08:00 Nasal Cannula 2.0 07/03/17 07:51 36.9 67 18 136/70 (92) 91 Nasal Cannula 2.0 07/03/17 05:04 36.9 66 19 146/86 (106) 94 Nasal Cannula 3.0 07/03/17 04:00 Nasal Cannula 2.0 Last Recorded Weight-Kilograms: 112.800 Physical Exam Constitutional: Level of Distress: mild distress Lungs: Respiratory effort: no dyspnea, good air movement Auscultation: breath sounds normal Cardiovascular: Heart Auscultation: RRR, II/ KACIE Peripheral Pulses: Bruits: none appreciated Extremities: pertinent finding (Trace lower extremity edema) Data Laboratory Results: Last 24 Hours Test 07/02/17 16:45 07/02/17 21:09 07/03/17 06:21 07/03/17 06:33 Bedside Glucose 157 mg/dl 196 mg/dl 151 mg/dl White Blood Count 7.04 K/uL Red Blood Count 3.26 M/uL Hemoglobin 9.1 g/dL Hematocrit 28.7 % Mean Corpuscular Volume 88.0 fL Mean Corpuscular Hemoglobin 27.9 pg Mean Corpuscular Hemoglobin Concent 31.7 g/dl RDW Standard Deviation 54.3 fL RDW Coefficient of Variation 16.7 % Platelet Count 166 K/uL Mean Platelet Volume 8.7 fL Prothrombin Time 12.9 SECONDS Prothromb Time International Ratio 1.2 Activated Partial Thromboplast Time 32.8 SECONDS Partial Thromboplastin Ratio 1.3 Sodium Level 138 mmol/L Potassium Level 3.9 mmol/L Chloride Level 103 mmol/L Carbon Dioxide Level 28 mmol/L Anion Gap 7.0 mmol/L Blood Urea Nitrogen 41 mg/dl Creatinine 2.73 mg/dl Est Creatinine Clear Calc Drug Dose 33.7 ml/min Estimated GFR () 27.4 Estimated GFR (Non- 23.7 BUN/Creatinine Ratio 15.0 Random Glucose 141 mg/dl Calcium Level 8.9 mg/dl Test 07/03/17 11:20 Bedside Glucose 159 mg/dl Imaging: Chest x-ray shows good lead position, no pneumothorax ICD evaluation: Excellent pacing and sensing characteristics, reprogrammed to alleviate EKG: Device implantation AV sequential pacing with appropriate biventricular paced complex, QRS duration significantly improved at 162 ms Telemetry reviewed: Sinus rhythm and atrial pacing with appropriate ventricular pacing and frequent premature ventricular beats post Biventricular ICD: Excellent pacing and sensing characteristics, reprogrammed to alleviate diaphragmatic pacing Assessment and Plan 1. Postop day #1: His ICD is functioning well, his x-ray looks good and his electrocardiogram shows significant QRS narrowing (although still wide as expected). His creatinine has improved today despite using dye yesterday, this suggests improvement in cardiac output. No significant incisional discomfort. 2. Cardiomyopathy: He appears to have a nonischemic cardiomyopathy with an ejection fraction which has been decreasing, and although there is some discrepancy in his ejection fraction it is in the 30-40% range, probably closer to 30%. Given the magnitude of his conduction abnormality it is likely that dyssynchrony is at least partially responsible for his cardiomyopathy. It has been difficult to titrate beta-blockade with his conduction abnormality. Now with the device in place that should be possible, and hopefully between improving his beta-blockade and biventricular pacing (and possibly decreasing premature ventricular beats) he will have an improvement in his symptoms and ejection fraction. 3. Congestive heart failure: He does not have evidence of much fluid overload currently (he does not have heart failure on chest x-ray or exam) but he has significant heart failure symptoms (NYHA class III) including severe dyspnea on exertion and orthopnea. He seems to feel better already following device implantation but has not been active. 4. PVCs: He has very frequent premature ventricular beats, this is interfering with appropriate biventricular pacing. We like to have 95-98% true biventricular pacing and he is not close to that currently. This may contribute to his cardiomyopathy or limit his response to biventricular pacing. Hopefully with increased beta-blockade this will improve, he is already on amiodarone. If not I would consider ablation down the road. Thank you for allowing me to participate in his care.
--- NOTE | 2017-07-03 16:16 | Cardiology Follow-Up ---
Subjective General Date of Service: Jul 03, 2017. Chief Complaint: Shortness of breath Pt evaluation today including: conversation w/ patient, physical exam History of Present Illness The patient is a 62 year old male seen in follow-up. Patient resting comfortably. Feels subjectively improved 1 day postop having had biventricular pacemaker AICD. Telemetry reveals sinus rhythm with ventricular paced QRS complexes, occasional PVCs. His diuretics have been held for 2 days, and his creatinine has trended down to 2.73. Allergies Coded Allergies: No Known Allergies (Verified , 05/23/17) Social History Smoking Status: Never Smoker Hx Tobacco Use In Past Year?: No Hx Alcohol Use - Type And Amou: No Hx Substance Use - Type And Am: No Problem List Medical Problems: (1) CHF (congestive heart failure) Status: Acute (2) CHF (congestive heart failure) Status: Acute (3) Diffuse abdominal pain Status: Acute (4) Elevated troponin Status: Acute (5) Precordial chest pain Status: Acute (6) Renal cyst Status: Acute (7) Shortness of breath Status: Acute (8) Shortness of breath Status: Acute Physical Exam Vital Signs Last Vital Signs Documentation Date Time Temp Pulse Resp B/P (MAP) Pulse Ox O2 Delivery O2 Flow Rate FiO2 07/03/17 15:30 37.0 63 18 134/80 (98) 98 Nasal Cannula 2.0 Physical Exam Constitutional: Level of Distress: mild distress Psychiatric: Mental Status: active & alert Head: normocephalic Eyes: EOM: EOMI ENMT: normal ENT inspection, hearing grossly normal Neck: supple, no masses Lungs: Respiratory effort: no dyspnea, good air movement Auscultation: breath sounds normal Cardiovascular: Heart Auscultation: RRR, II/ KACIE Peripheral Pulses: Bruits: none appreciated Abdomen: Bowel Sounds: normal Inspection & Palpation: soft, no tenderness, guarding & rebound, no masses Musculoskeletal: normal strength (5/5 throughout) Extremities: pertinent finding (Trace lower extremity edema) Neurologic: Gait & Station: pertinent finding (no focal neuro deficits ) Cranial Nerves: grossly intact Sensation: grossly intact Assessment and Plan Assessment and Plan Impression: 62-year-old male 1. Acute on chronic systolic heart failure, volume status improved -First-degree AV block, left bundle branch block with wide QRS complex -s/p BiV PM, AICD 07/02 2. Prior history of nonischemic cardiomyopathy, mild coronary atherosclerosis by cardiac catheterization 07/02/16, nuclear stress test is performed today suggests ongoing nonischemic cardiomyopathy rather than new obstructive CAD with high-quality perfusion images noted today. 3. Chronic kidney disease, creatinine improved to 2.73 today 07/03/17 4. Paroxysmal atrial flutter 5. History of retroperitoneal bleed last, now back on anticoagulation, hemoglobin stable, however below goal, he has therefore received IV iron this admission Plan: Increase metoprolol succinate. He is currently on 50 mg daily in a.m., will increase to 50 mg every morning and 25 mg in the p.m. Ultimately, would like to titrate beta-effie to 50 mg twice daily or 100 mg by mouth daily as tolerated. Metoprolol succinate favored given his history of atrial arrhythmias and PVCs rather than carvedilol. Start oral diuretics tomorrow, torsemide 10 mg by mouth daily. Coumadin has been reinitiated post device, proceed with Coumadin without bridge therapy for now to reduce risk of pocket hematoma. He remains in sinus rhythm and he spontaneously converted from atrial flutter to sinus rhythm on 06/29/17. In terms of pain control, favor Tylenol as his primary postprocedure pain reliever. Continue Isordil plus hydralazine. He is not a candidate for yaritza inhibitor , ARB, or Enstresto due to renal insufficiency. He is not a candidate for aldactone due to renal insufficiency. Continue rosuvastatin. DVT prophylaxis: He is on Coumadin, however it is subtherapeutic Laboratory Results Last 24 Hours Test 07/02/17 16:45 07/02/17 21:09 07/03/17 06:21 07/03/17 06:33 Bedside Glucose 157 mg/dl 196 mg/dl 151 mg/dl White Blood Count 7.04 K/uL Red Blood Count 3.26 M/uL Hemoglobin 9.1 g/dL Hematocrit 28.7 % Mean Corpuscular Volume 88.0 fL Mean Corpuscular Hemoglobin 27.9 pg Mean Corpuscular Hemoglobin Concent 31.7 g/dl RDW Standard Deviation 54.3 fL RDW Coefficient of Variation 16.7 % Platelet Count 166 K/uL Mean Platelet Volume 8.7 fL Prothrombin Time 12.9 SECONDS Prothromb Time International Ratio 1.2 Activated Partial Thromboplast Time 32.8 SECONDS Partial Thromboplastin Ratio 1.3 Sodium Level 138 mmol/L Potassium Level 3.9 mmol/L Chloride Level 103 mmol/L Carbon Dioxide Level 28 mmol/L Anion Gap 7.0 mmol/L Blood Urea Nitrogen 41 mg/dl Creatinine 2.73 mg/dl Est Creatinine Clear Calc Drug Dose 33.7 ml/min Estimated GFR () 27.4 Estimated GFR (Non- 23.7 BUN/Creatinine Ratio 15.0 Random Glucose 141 mg/dl Calcium Level 8.9 mg/dl Test 07/03/17 11:20 Bedside Glucose 159 mg/dl
[2017-07-03] MEDS: WARFARIN SOD 5 MG TAB PO SCH (16:35)
--- NOTE | 2017-07-03 19:14 | Progress Note ---
Medicine Progress Note Date & Time of Visit: Jul 03, 2017 at 19:08. Subjective Pt was seen and examined Sitting in chair with no distress Pt said that pain improved Denies any chest pain, palpitation, dizziness and SOB Objective Last 8 Hrs Date Time Temp Pulse Resp B/P (MAP) Pulse Ox O2 Delivery O2 Flow Rate FiO2 07/03/17 15:30 37.0 63 18 134/80 (98) 98 Nasal Cannula 2.0 07/03/17 12:00 Nasal Cannula 2.0 07/03/17 11:31 36.9 65 18 137/77 (97) 95 Nasal Cannula 2.0 Physical Exam: General- No acute distress Head- atraumatic Eyes- PERRL, EOMI ENT- oropharynx clear Neck- supple, no JVD Lungs- Mild wheezing Heart- +systolic murmur Abdomen- normal bowel sounds, soft Extremities- +edema, no calf tenderness Neuro- alert, oriented x 3; PERRL, EOMI Skin- warm & dry Laboratory Results: Last 24 Hours Test 07/02/17 21:09 07/03/17 06:21 07/03/17 06:33 07/03/17 11:20 Bedside Glucose 196 mg/dl 151 mg/dl 159 mg/dl White Blood Count 7.04 K/uL Red Blood Count 3.26 M/uL Hemoglobin 9.1 g/dL Hematocrit 28.7 % Mean Corpuscular Volume 88.0 fL Mean Corpuscular Hemoglobin 27.9 pg Mean Corpuscular Hemoglobin Concent 31.7 g/dl RDW Standard Deviation 54.3 fL RDW Coefficient of Variation 16.7 % Platelet Count 166 K/uL Mean Platelet Volume 8.7 fL Prothrombin Time 12.9 SECONDS Prothromb Time International Ratio 1.2 Activated Partial Thromboplast Time 32.8 SECONDS Partial Thromboplastin Ratio 1.3 Sodium Level 138 mmol/L Potassium Level 3.9 mmol/L Chloride Level 103 mmol/L Carbon Dioxide Level 28 mmol/L Anion Gap 7.0 mmol/L Blood Urea Nitrogen 41 mg/dl Creatinine 2.73 mg/dl Est Creatinine Clear Calc Drug Dose 33.7 ml/min Estimated GFR () 27.4 Estimated GFR (Non- 23.7 BUN/Creatinine Ratio 15.0 Random Glucose 141 mg/dl Calcium Level 8.9 mg/dl Test 07/03/17 16:34 Bedside Glucose 157 mg/dl Assessment & Plan Acute on chronic systolic heart failure ProBNP on admission 5122 CXR on admission showed no acute findings. Continue IV lasix 10mg BID Cardiology on board Plan for AICD placement on Continue metoprolol 07/03 Clinically improves AICD placed yesterday and tolerated procedure well diuretic will resume tomorrow with torsemide 10mg Metoprolol increased to 50mg in am and 25mg PM continue monitor in tele Recent ECHO showed * The left ventricle is normal in size. * Septal motion is consistent with conduction abnormality. * Left ventricular systolic function is moderately reduced. * Ejection Fraction = 35-40%. * The right ventricular systolic function is normal. * The left atrium is moderately dilated. * The right atrium is moderately dilated. * The aortic valve is sclerotic. * Moderate aortic stenosis. * There is mild mitral regurgitation Chest Pain Prior history of nonischemic cardiomyopathy, mild coronary atherosclerosis by cardiac catheterization 07/02/16 S/P nuclear stress test is performed yesterday suggests ongoing nonischemic cardiomyopathy rather than new obstructive CAD Continue Statin, aspirin, and metoprolol Continue monitor in tele Resolved Paroxysmal Afib Rate control with amiodarone and metoprolol 50mg in am and 25mg pm On Coumadin. INR 1.2 today Continue coumadin Heparin drip d/c Chronic kidney disease stage 4 Still elevated from recent baseline ~2.5 Creatine 2.7 creatinine today Avoid nephrotoxic agent Nephrology on board continue monitor BMP Anemia History of retroperitoneal bleed Hgb stable DM II Last a1c 9.5 Continue holding oral meds Insulin sliding scale coverage Monitor BS DVT px Continue Coumadin INR 1.2 CODE STATUS FULL CODE Disposition Continue telemetry Current Inpatient Medications: Current Inpatient Medications Medications (Trade) Dose Ordered Sig/Larry Route Start Time Stop Time Status Last Admin Dose Admin Miscellaneous Information (Consult Glycemic Management Pharmacy) 1 ea UD PRN N/A 06/25/17 16:00 07/25/17 15:59 Insulin Aspart (novoLOG ASPART) SLIDING SCALE If C... ACHS SC 06/25/17 21:00 07/25/17 20:59 07/03/17 17:03 6 UNITS Glucose (Glucose 40% Gel) 15-30 GRAMS 15 GRAMS... UD PRN PO 06/25/17 16:00 07/25/17 15:59 Glucose (Glucose Chew Tab) 4-8 Tablets 4 Tabl... UD PRN PO 06/25/17 16:00 07/25/17 15:59 Dextrose (Dextrose 50% 50ML Syringe) 25-50ML OF 50% DW IV FOR... UD PRN IV 06/25/17 16:00 07/25/17 15:59 Glucagon (Glucagon Inj) 1 mg UD PRN SQ 06/25/17 16:00 07/25/17 15:59 Acetaminophen (Tylenol Tab) 650 mg Q4H PRN PO 06/25/17 16:00 07/25/17 15:59 07/02/17 17:14 650 MG Al Hydrox/Mg Hydrox/Simethicone (Maalox Max Susp) 15 ml Q4H PRN PO 06/25/17 16:00 07/25/17 15:59 Magnesium Hydroxide (Milk Of Magnesia Susp) 30 ml Q12H PRN PO 06/25/17 16:00 07/25/17 15:59 Miscellaneous (Iv Fluids Completed) 1 ea PRN PRN N/A 06/25/17 16:15 06/25/18 16:14 Albuterol (Ventolin Hfa Inhaler) 2 puffs Q4H PRN INH 06/25/17 16:15 07/25/17 16:14 Amiodarone HCl (Cordarone Tab) 200 mg BID PO 06/25/17 21:00 07/25/17 20:59 07/03/17 07:48 200 MG Aspirin (Ecotrin Tab) 81 mg QAM PO 06/26/17 09:00 07/26/17 08:59 07/03/17 07:50 81 MG Duloxetine HCl (Cymbalta Cap) 60 mg DAILY PO 06/26/17 09:00 07/26/17 08:59 07/03/17 07:48 60 MG Gabapentin (Neurontin Tab) 600 mg TID PO 06/25/17 21:00 07/25/17 20:59 07/03/17 13:10 600 MG Albuterol/ Ipratropium (Duoneb) 3 ml QID PRN INH 06/25/17 16:15 07/25/17 16:14 07/01/17 10:50 3 ML Isosorbide Dinitrate (Isordil Tab) 20 mg TID@0700,1200,1700 PO 06/25/17 17:00 07/25/17 16:59 07/03/17 16:36 20 MG Pantoprazole Sodium (Protonix Tab) 40 mg QAM PO 06/26/17 09:00 07/26/17 08:59 07/03/17 07:48 40 MG Rosuvastatin Calcium (Crestor Tab) 40 mg HS PO 06/25/17 21:00 07/25/17 20:59 07/02/17 21:17 40 MG Amlodipine Besylate (Norvasc Tab) 5 mg DAILY PO 06/27/17 09:00 07/26/17 08:59 07/03/17 07:50 5 MG Hydralazine HCl (Apresoline Tab) 25 mg TID PO 06/26/17 14:00 07/25/17 20:59 07/03/17 13:10 25 MG Metoprolol Succinate (Toprol Xl Tab) 50 mg QAM PO 06/27/17 09:00 07/27/17 08:59 07/03/17 07:48 50 MG Fluticasone/ Vilanterol (Breo Ellipta 100-25 Mcg/Inh) 1 puffs DAILY INH 07/01/17 09:00 07/31/17 08:59 07/03/17 07:48 1 PUFFS Insulin Glargine (Lantus Solostar Pen) 10 units HS SC 07/02/17 21:00 08/01/17 20:59 07/02/17 21:19 10 UNITS Warfarin Sodium (Coumadin Tab) 5 mg DAILY@16 PO 07/03/17 16:00 08/02/17 15:59 07/03/17 16:35 5 MG Metoprolol Succinate (Toprol Xl Tab) 25 mg HS PO 07/03/17 21:00 08/02/17 20:59 Torsemide (Demadex Tab) 10 mg QAM PO 07/04/17 09:00 08/03/17 08:59
[2017-07-03] MEDS ORDERED: METOPROLOL SUCC 25MG EXT REL TAB PO SCH (21:00)
[2017-07-03] MEDS: ROSUVASTATIN CALCIUM 20 MG TAB PO SCH (21:03)
[2017-07-03] MEDS: INSULIN GLARGINE SOLOSTAR 100 UNITS/ML 3 ML PEN SC SCH (21:10)
[2017-07-04] VITALS (7 sets, daily range): BP systolic 119–153; BP diastolic 67–87; PULSE 61–95; TEMP 36–36.9; O2SAT 93–99
[2017-07-04 07:32] LABS: INR 1.3 (0.9-1.1)
[2017-07-04] MEDS: GABAPENTIN 600 MG TAB PO SCH ×3 (07:33→20:22)
[2017-07-04] MEDS: AMIODARONE 200 MG TAB PO SCH ×2 (07:33→20:23)
[2017-07-04] MEDS: ISOSORBIDE DINITRATE 10 MG TAB PO SCH ×3 (07:34→17:37)
[2017-07-04] MEDS: PANTOprazole SOD 40 MG TAB PO SCH (07:34)
[2017-07-04] MEDS: AMLODIPINE BESYLATE 5 MG TAB PO SCH (07:34)
[2017-07-04] MEDS: DULOXETINE HCL 60 MG CAP PO SCH (07:34)
[2017-07-04] MEDS: METOPROLOL SUCC 50MG EXT REL TAB PO SCH ×2 (07:34→20:24)
[2017-07-04] MEDS: ASPIRIN 81 MG ECTAB PO SCH (07:34)
[2017-07-04] MEDS: FLUTICASONE FUROATE-VILANTEROL 60 PUFFS INH INH SCH (07:35)
[2017-07-04] MEDS: INSULIN ASPART 100 UNITS/ML 3 ML PEN SC SCH ×4 (07:39→20:49)
[2017-07-04 07:45] LABS: CALCIUM 8.5 mg/dl (8.5-10.1); CREATININE 2.54 mg/dl (0.60-1.40); POTASSIUM 3.8 mmol/L (3.5-5.1)
[2017-07-04] MEDS: TORSEMIDE 20 MG TAB PO SCH (12:21)
--- NOTE | 2017-07-04 12:23 | Cardiology Follow-Up ---
Subjective General Date of Service: Jul 04, 2017. Chief Complaint: Shortness of breath History of Present Illness The patient is a 62 year old male seen and examined at bedside. Worsening LE edema noted. Denies CP or palpitations. Atrial sensed ventricular paced and AV paced on telemetry. Allergies Coded Allergies: No Known Allergies (Verified , 05/23/17) Social History Smoking Status: Never Smoker Hx Tobacco Use In Past Year?: No Hx Alcohol Use - Type And Amou: No Hx Substance Use - Type And Am: No Problem List Medical Problems: (1) CHF (congestive heart failure) Status: Acute (2) CHF (congestive heart failure) Status: Acute (3) Diffuse abdominal pain Status: Acute (4) Elevated troponin Status: Acute (5) Precordial chest pain Status: Acute (6) Renal cyst Status: Acute (7) Shortness of breath Status: Acute (8) Shortness of breath Status: Acute Review of Systems Respiratory: + dyspnea on exertion, No cough, No wheezing, No shortness of breath, No dyspnea at rest, No hemoptysis Cardiac: + edema, No chest pain, No orthopnea, No palpitations Physical Exam Vital Signs Last Vital Signs Documentation Date Time Temp Pulse Resp B/P (MAP) Pulse Ox O2 Delivery O2 Flow Rate FiO2 07/04/17 11:37 36.9 95 16 119/67 (84) 94 07/04/17 08:00 Nasal Cannula 2.0 Physical Exam Constitutional: Level of Distress: mild distress Psychiatric: Mental Status: active & alert Head: normocephalic Eyes: EOM: EOMI ENMT: normal ENT inspection, hearing grossly normal Neck: supple, no masses Lungs: Respiratory effort: no dyspnea, good air movement Auscultation: breath sounds normal Cardiovascular: Heart Auscultation: RRR, II/ KACIE Peripheral Pulses: Bruits: none appreciated Abdomen: Bowel Sounds: normal Inspection & Palpation: soft, no tenderness, guarding & rebound, no masses Musculoskeletal: normal strength (5/5 throughout) Extremities: pertinent finding (1-2+ B/L pretibial edema, +weeping edema of the right lower extrema) Neurologic: Gait & Station: pertinent finding (no focal neuro deficits ) Cranial Nerves: grossly intact Sensation: grossly intact Assessment and Plan Assessment and Plan Impression: 1. Acute on chronic systolic heart failure -s/p BiV AICD 07/02 -Worsening edema noted on physical exam today -Diuretics held since 07/01 2. Nonischemic cardio myopathy ejection fraction 30% per gated SPECT imaging with underlying left bundle branch block. 3. Chronic kidney disease, creatinine improved to 2.54 today 07/04/17 4. Paroxysmal atrial flutter -atrial sensed biventricular paced rhythm on telemetry 5. History of retroperitoneal bleed last admission related to femoral dialysis catheter insertion. Plan/Recommendations : Increase Toprol-XL to 50 mg twice daily. Restart diuretic therapy today. Torsemide 10 mg ordered. Repeat basic metabolic panel in the a.m. Continue Coumadin for goal INR of 2.0-3.0 without bridging therapy due to history of recent retroperitoneal bleeding. Continue other cardiovascular medications as previously ordered. Patient is not a candidate for VENKATA inhibitor or Entresto due to renal insufficiency. Will continue to follow during hospitalization. Laboratory Results Last 24 Hours Test 07/03/17 16:34 07/03/17 19:50 07/04/17 06:24 07/04/17 06:50 Bedside Glucose 157 mg/dl 177 mg/dl 112 mg/dl Prothrombin Time 13.3 SECONDS Prothromb Time International Ratio 1.3 Activated Partial Thromboplast Time 32.0 SECONDS Partial Thromboplastin Ratio 1.2 Sodium Level 139 mmol/L Potassium Level 3.8 mmol/L Chloride Level 105 mmol/L Carbon Dioxide Level 28 mmol/L Anion Gap 7.0 mmol/L Blood Urea Nitrogen 37 mg/dl Creatinine 2.54 mg/dl Est Creatinine Clear Calc Drug Dose 36.2 ml/min Estimated GFR () 29.9 Estimated GFR (Non- 25.8 BUN/Creatinine Ratio 14.5 Random Glucose 105 mg/dl Calcium Level 8.5 mg/dl Test 07/04/17 11:14 Bedside Glucose 124 mg/dl
--- NOTE | 2017-07-04 14:14 | Pharmacy Progress Note ---
Glycemic: Assessment & Plan Date of Service Jul 04, 2017. Assessment & Plan Assessment * AM fasting BSG's decreasing steadily on Lantus 10 units qHS (170-151-112 mg/ dL x3 days). Will very slightly decrease Lantus. * Post-prandial BSG's ranging 159-177 mg/dL yesterday - tighter control warranted. Will very slightly tighten carb ratio. Plan * Basal insulin: Decrease Lantus 9 units every 24 hours * Correctional Insulin: Novolog Correction per scale ACHS Goal Range: Low 110 mg/dL - High 140 mg/dL Correction Factor: 20 mg/dL/unit * Prandial insulin: Tighten carb ratio of 1 unit per 6 grams CHO consumed Pharmacy will continue to monitor patient daily and write orders per [facility] inpatient glycemic control protocol. Thanks. * Please note that the plan above was derived based on current level of insulin resistance and hospital stress. These recommendations are appropriate for inpatient admission only. Plan of care upon discharge will need to be reassessed to avoid potential outpatient hypo/hyperglycemia.
[2017-07-04] MEDS: WARFARIN SOD 5 MG TAB PO SCH (16:02)
--- NOTE | 2017-07-04 18:16 | Progress Note ---
Medicine Progress Note Date & Time of Visit: Jul 04, 2017 at 18:12. Subjective Pt was seen and examined He was walking in the hallway with no distress Pt said that he would like to go home today He said that his breathing feels much better Denies any chest pain, palpitation and SOB Objective Last 8 Hrs Date Time Temp Pulse Resp B/P (MAP) Pulse Ox O2 Delivery O2 Flow Rate FiO2 07/04/17 16:00 Room Air 07/04/17 15:17 36.5 61 18 153/87 (109) 93 Room Air 07/04/17 12:00 Nasal Cannula 2.0 07/04/17 11:37 36.9 95 16 119/67 (84) 94 Physical Exam: General- No acute distress Head- atraumatic Eyes- PERRL, EOMI ENT- oropharynx clear Neck- supple, no JVD Lungs- Mild wheezing Heart- +systolic murmur Abdomen- normal bowel sounds, soft Extremities- +edema, no calf tenderness Neuro- alert, oriented x 3; PERRL, EOMI Skin- warm & dry Laboratory Results: Last 24 Hours Test 07/03/17 19:50 07/04/17 06:24 07/04/17 06:50 07/04/17 11:14 Bedside Glucose 177 mg/dl 112 mg/dl 124 mg/dl Prothrombin Time 13.3 SECONDS Prothromb Time International Ratio 1.3 Activated Partial Thromboplast Time 32.0 SECONDS Partial Thromboplastin Ratio 1.2 Sodium Level 139 mmol/L Potassium Level 3.8 mmol/L Chloride Level 105 mmol/L Carbon Dioxide Level 28 mmol/L Anion Gap 7.0 mmol/L Blood Urea Nitrogen 37 mg/dl Creatinine 2.54 mg/dl Est Creatinine Clear Calc Drug Dose 36.2 ml/min Estimated GFR () 29.9 Estimated GFR (Non- 25.8 BUN/Creatinine Ratio 14.5 Random Glucose 105 mg/dl Calcium Level 8.5 mg/dl Test 07/04/17 16:28 Bedside Glucose 115 mg/dl Assessment & Plan Acute on chronic systolic heart failure ProBNP on admission 5122 CXR on admission showed no acute findings. Continue IV lasix 10mg BID Cardiology on board Plan for AICD placement on Continue metoprolol 07/04 Clinically improves AICD placed on 07/02 and tolerated procedure well Starting on torsemide 10mg daily Metoprolol increased to 50mg BID No arrhythmia on tele monitor Not a candidate for VENKATA inhibitor or Entresto due to renal insufficiency. continue monitor in tele Recent ECHO showed * The left ventricle is normal in size. * Septal motion is consistent with conduction abnormality. * Left ventricular systolic function is moderately reduced. * Ejection Fraction = 35-40%. * The right ventricular systolic function is normal. * The left atrium is moderately dilated. * The right atrium is moderately dilated. * The aortic valve is sclerotic. * Moderate aortic stenosis. * There is mild mitral regurgitation Chest Pain Prior history of nonischemic cardiomyopathy, mild coronary atherosclerosis by cardiac catheterization 07/02/16 S/P nuclear stress test is performed yesterday suggests ongoing nonischemic cardiomyopathy rather than new obstructive CAD Continue Statin, aspirin, and metoprolol Continue monitor in tele Resolved Paroxysmal Afib Rate control with amiodarone and metoprolol 50mg in am and 25mg pm On Coumadin. INR 1.3 today Continue coumadin Heparin drip was d/c to avoid pocket hematoma Chronic kidney disease stage 4 Still elevated from recent baseline ~2.5 Creatine 2.54 creatinine today Avoid nephrotoxic agent Nephrology on board continue monitor BMP Anemia History of retroperitoneal bleed Hgb stable DM II Last a1c 9.5 Continue holding oral meds Insulin sliding scale coverage Monitor BS DVT px Continue Coumadin INR 1.3 CODE STATUS FULL CODE Disposition Continue telemetry Current Inpatient Medications: Current Inpatient Medications Medications (Trade) Dose Ordered Sig/Larry Route Start Time Stop Time Status Last Admin Dose Admin Miscellaneous Information (Consult Glycemic Management Pharmacy) 1 ea UD PRN N/A 06/25/17 16:00 07/25/17 15:59 Insulin Aspart (novoLOG ASPART) SLIDING SCALE If C... ACHS SC 06/25/17 21:00 07/25/17 20:59 07/04/17 17:39 7 UNITS Glucose (Glucose 40% Gel) 15-30 GRAMS 15 GRAMS... UD PRN PO 06/25/17 16:00 07/25/17 15:59 Glucose (Glucose Chew Tab) 4-8 Tablets 4 Tabl... UD PRN PO 06/25/17 16:00 07/25/17 15:59 Dextrose (Dextrose 50% 50ML Syringe) 25-50ML OF 50% DW IV FOR... UD PRN IV 06/25/17 16:00 07/25/17 15:59 Glucagon (Glucagon Inj) 1 mg UD PRN SQ 06/25/17 16:00 07/25/17 15:59 Acetaminophen (Tylenol Tab) 650 mg Q4H PRN PO 06/25/17 16:00 07/25/17 15:59 07/02/17 17:14 650 MG Al Hydrox/Mg Hydrox/Simethicone (Maalox Max Susp) 15 ml Q4H PRN PO 06/25/17 16:00 07/25/17 15:59 Magnesium Hydroxide (Milk Of Magnesia Susp) 30 ml Q12H PRN PO 06/25/17 16:00 07/25/17 15:59 Miscellaneous (Iv Fluids Completed) 1 ea PRN PRN N/A 06/25/17 16:15 06/25/18 16:14 Albuterol (Ventolin Hfa Inhaler) 2 puffs Q4H PRN INH 06/25/17 16:15 07/25/17 16:14 Amiodarone HCl (Cordarone Tab) 200 mg BID PO 06/25/17 21:00 07/25/17 20:59 07/04/17 07:33 200 MG Aspirin (Ecotrin Tab) 81 mg QAM PO 06/26/17 09:00 07/26/17 08:59 07/04/17 07:34 81 MG Duloxetine HCl (Cymbalta Cap) 60 mg DAILY PO 06/26/17 09:00 07/26/17 08:59 07/04/17 07:34 60 MG Gabapentin (Neurontin Tab) 600 mg TID PO 06/25/17 21:00 07/25/17 20:59 07/04/17 16:01 600 MG Albuterol/ Ipratropium (Duoneb) 3 ml QID PRN INH 06/25/17 16:15 07/25/17 16:14 07/01/17 10:50 3 ML Isosorbide Dinitrate (Isordil Tab) 20 mg TID@0700,1200,1700 PO 06/25/17 17:00 07/25/17 16:59 07/04/17 17:37 20 MG Pantoprazole Sodium (Protonix Tab) 40 mg QAM PO 06/26/17 09:00 07/26/17 08:59 07/04/17 07:34 40 MG Rosuvastatin Calcium (Crestor Tab) 40 mg HS PO 06/25/17 21:00 07/25/17 20:59 07/03/17 21:03 40 MG Amlodipine Besylate (Norvasc Tab) 5 mg DAILY PO 06/27/17 09:00 07/26/17 08:59 07/04/17 07:34 5 MG Hydralazine HCl (Apresoline Tab) 25 mg TID PO 06/26/17 14:00 07/25/17 20:59 07/04/17 16:01 25 MG Fluticasone/ Vilanterol (Breo Ellipta 100-25 Mcg/Inh) 1 puffs DAILY INH 07/01/17 09:00 07/31/17 08:59 07/04/17 07:35 1 PUFFS Warfarin Sodium (Coumadin Tab) 5 mg DAILY@16 PO 07/03/17 16:00 08/02/17 15:59 07/04/17 16:02 5 MG Torsemide (Demadex Tab) 10 mg QAM PO 07/04/17 09:00 08/03/17 08:59 07/04/17 12:21 10 MG Insulin Glargine (Lantus Solostar Pen) 9 units HS SC 07/04/17 21:00 08/03/17 20:59 Metoprolol Succinate (Toprol Xl Tab) 50 mg BID PO 07/04/17 21:00 07/27/17 08:59
[2017-07-04] MEDS: ROSUVASTATIN CALCIUM 20 MG TAB PO SCH (20:23)
[2017-07-04] MEDS ORDERED: INSULIN GLARGINE SOLOSTAR 100 UNITS/ML 3 ML PEN SC SCH (21:00)
[2017-07-05 00:13] VITALS: BP 136/77; PULSE 62; TEMP 36.8; O2SAT 91
[2017-07-05 04:26] VITALS: BP 130/69; PULSE 64; TEMP 36.8; O2SAT 92
[2017-07-05 05:59] LABS: HEMATOCRIT 26.7 % (42-52); HEMOGLOBIN 8.4 g/dL (14.0-18.0); MEAN CELL VOLUME 87.5 fL (80-100); MEAN CORPUSCULAR HEMOGLOBIN 27.5 pg (25-34); MEAN CORPUSCULAR HGB CONC 31.5 g/dl (32-36); MEAN PLATELET VOLUME 8.7 fL (7.4-10.4); PLATELET COUNT 138 K/uL (130-400); RED CELL DISTRIBUTION WIDTH CV 16.7 % (11.5-14.5); RED CELL DISTRIBUTION WIDTH SD 53.8 fL (36.4-46.3); WHITE BLOOD COUNT 5.34 K/uL (4.8-10.8)
[2017-07-05 06:05] LABS: INR 1.4 (0.9-1.1); PTT PATIENT 31.1 SECONDS (21.0-31.0)
[2017-07-05 06:16] LABS: CALCIUM 8.7 mg/dl (8.5-10.1); CREATININE 2.53 mg/dl (0.60-1.40); POTASSIUM 3.8 mmol/L (3.5-5.1)
[2017-07-05] MEDS: GABAPENTIN 600 MG TAB PO SCH (07:58)
[2017-07-05] MEDS: DULOXETINE HCL 60 MG CAP PO SCH (07:59)
[2017-07-05] MEDS: AMIODARONE 200 MG TAB PO SCH (07:59)
[2017-07-05] MEDS: TORSEMIDE 20 MG TAB PO SCH (07:59)
[2017-07-05] MEDS: ASPIRIN 81 MG ECTAB PO SCH (08:00)
[2017-07-05] MEDS: ISOSORBIDE DINITRATE 10 MG TAB PO SCH ×2 (08:00→12:07)
[2017-07-05] MEDS: METOPROLOL SUCC 50MG EXT REL TAB PO SCH (08:01)
[2017-07-05] MEDS: PANTOprazole SOD 40 MG TAB PO SCH (08:01)
[2017-07-05] MEDS: AMLODIPINE BESYLATE 5 MG TAB PO SCH (08:02)
[2017-07-05] MEDS: FLUTICASONE FUROATE-VILANTEROL 60 PUFFS INH INH SCH (08:02)
[2017-07-05] MEDS: INSULIN ASPART 100 UNITS/ML 3 ML PEN SC SCH ×2 (08:09→12:08)
[2017-07-05 08:15] VITALS: BP 163/87; PULSE 60; TEMP 36.8; O2SAT 95
[2017-07-05 11:54] VITALS: BP 140/80; PULSE 74; TEMP 36.7; O2SAT 99
--- NOTE | 2017-07-05 12:44 | Cardiology Follow-Up ---
Subjective General Date of Service: Jul 05, 2017. Chief Complaint: Shortness of breath Pt evaluation today including: conversation w/ patient, physical exam, chart review, lab review, review of studies, conversation w/ loss prevention consultant, review of inpatient medication list History of Present Illness The patient is a 62 year old male seen in follow-up. Lower extremity edema improved. Patient diuresis approximately 900 cc. Creatinine stable. AV paced on telemetry. Offers no complaints at this time. Requesting discharge. Allergies Coded Allergies: No Known Allergies (Verified , 05/23/17) Social History Smoking Status: Never Smoker Hx Tobacco Use In Past Year?: No Hx Alcohol Use - Type And Amou: No Hx Substance Use - Type And Am: No Problem List Medical Problems: (1) CHF (congestive heart failure) Status: Acute (2) CHF (congestive heart failure) Status: Acute (3) Diffuse abdominal pain Status: Acute (4) Elevated troponin Status: Acute (5) Precordial chest pain Status: Acute (6) Renal cyst Status: Acute (7) Shortness of breath Status: Acute (8) Shortness of breath Status: Acute Review of Systems Respiratory: + dyspnea on exertion, No cough, No wheezing, No shortness of breath, No dyspnea at rest, No hemoptysis Cardiac: + edema, No chest pain, No orthopnea, No PND, No claudication, No palpitations Physical Exam Vital Signs Last Vital Signs Documentation Date Time Temp Pulse Resp B/P (MAP) Pulse Ox O2 Delivery O2 Flow Rate FiO2 07/05/17 12:00 Room Air 07/05/17 11:54 36.7 74 16 140/80 (100) 99 07/04/17 12:00 2.0 Physical Exam Constitutional: Level of Distress: mild distress Psychiatric: Mental Status: active & alert Head: normocephalic Eyes: EOM: EOMI ENMT: normal ENT inspection, hearing grossly normal Neck: supple, no masses Lungs: Respiratory effort: no dyspnea, good air movement Auscultation: breath sounds normal Cardiovascular: Heart Auscultation: RRR, II/ KACIE Peripheral Pulses: Bruits: none appreciated Abdomen: Bowel Sounds: normal Inspection & Palpation: soft, no tenderness, guarding & rebound, no masses Musculoskeletal: normal strength (5/5 throughout) Extremities: edema (1+ B/L pretibial edema) Neurologic: Gait & Station: pertinent finding (no focal neuro deficits ) Cranial Nerves: grossly intact Sensation: grossly intact Assessment and Plan Assessment and Plan Impression: 1. Acute on chronic systolic heart failure -s/p BiV AICD 07/02 -Edema improved with diuretic therapy 2. Nonischemic cardio myopathy ejection fraction 30% per gated SPECT imaging with underlying left bundle branch block. 3. Chronic kidney disease, creatinine stable 2.53 today 07/05/17 4. Paroxysmal atrial flutter - atrial sensed biventricular paced rhythm and AV paced on telemetry -INR subtherapeutic 5. History of retroperitoneal bleed last admission related to femoral dialysis catheter insertion. Plan/Recommendations : Continue Toprol-XL to 50 mg twice daily. Continue torsemide 10 mg daily. Dose Coumadin for goal INR of 2.0-3.0 without bridging therapy due to history of recent retroperitoneal bleeding. Continue other cardiovascular medications as previously ordered. Patient is not a candidate for VENKATA inhibitor or Entresto due to renal insufficiency. Outpatient cardiology follow-up in 1 week with device clinic follow-up in 4-6 weeks. Laboratory Results Last 24 Hours Test 07/04/17 16:28 07/04/17 20:14 07/05/17 05:30 07/05/17 06:35 Bedside Glucose 115 mg/dl 230 mg/dl 140 mg/dl White Blood Count 5.34 K/uL Red Blood Count 3.05 M/uL Hemoglobin 8.4 g/dL Hematocrit 26.7 % Mean Corpuscular Volume 87.5 fL Mean Corpuscular Hemoglobin 27.5 pg Mean Corpuscular Hemoglobin Concent 31.5 g/dl RDW Standard Deviation 53.8 fL RDW Coefficient of Variation 16.7 % Platelet Count 138 K/uL Mean Platelet Volume 8.7 fL Prothrombin Time 14.7 SECONDS Prothromb Time International Ratio 1.4 Activated Partial Thromboplast Time 31.1 SECONDS Partial Thromboplastin Ratio 1.2 Sodium Level 138 mmol/L Potassium Level 3.8 mmol/L Chloride Level 103 mmol/L Carbon Dioxide Level 29 mmol/L Anion Gap 6.0 mmol/L Blood Urea Nitrogen 34 mg/dl Creatinine 2.53 mg/dl Est Creatinine Clear Calc Drug Dose 36.2 ml/min Estimated GFR () 30.1 Estimated GFR (Non- 26.0 BUN/Creatinine Ratio 13.3 Random Glucose 132 mg/dl Calcium Level 8.7 mg/dl Test 07/05/17 11:15 Bedside Glucose 154 mg/dl
[2017-07-05 13:41] VITALS: BP 140/80; PULSE 74; TEMP 36.7; O2SAT 99
--- NOTE | 2017-07-05 14:00 | Progress Note ---
Medicine Progress Note Date & Time of Visit: Jul 05, 2017 at 13:43. Subjective Pt was seen and examined Lying in bed with no distress Pt said that he feels fine He said that he is ready to go he has been walking around with no distress He denies any chest pain, palpitation and SOB Objective Last 8 Hrs Date Time Temp Pulse Resp B/P (MAP) Pulse Ox O2 Delivery O2 Flow Rate FiO2 07/05/17 12:00 Room Air 07/05/17 11:54 36.7 74 16 140/80 (100) 99 07/05/17 08:15 36.8 60 18 163/87 (112) 95 07/05/17 08:00 Room Air Physical Exam: General- No acute distress Head- atraumatic Eyes- PERRL, EOMI ENT- oropharynx clear Neck- supple, no JVD Lungs- No wheezing Heart- +systolic murmur Abdomen- normal bowel sounds, soft Extremities- +edema, no calf tenderness Neuro- alert, oriented x 3; PERRL, EOMI Skin- warm & dry Laboratory Results: Last 24 Hours Test 07/04/17 16:28 07/04/17 20:14 07/05/17 05:30 07/05/17 06:35 Bedside Glucose 115 mg/dl 230 mg/dl 140 mg/dl White Blood Count 5.34 K/uL Red Blood Count 3.05 M/uL Hemoglobin 8.4 g/dL Hematocrit 26.7 % Mean Corpuscular Volume 87.5 fL Mean Corpuscular Hemoglobin 27.5 pg Mean Corpuscular Hemoglobin Concent 31.5 g/dl RDW Standard Deviation 53.8 fL RDW Coefficient of Variation 16.7 % Platelet Count 138 K/uL Mean Platelet Volume 8.7 fL Prothrombin Time 14.7 SECONDS Prothromb Time International Ratio 1.4 Activated Partial Thromboplast Time 31.1 SECONDS Partial Thromboplastin Ratio 1.2 Sodium Level 138 mmol/L Potassium Level 3.8 mmol/L Chloride Level 103 mmol/L Carbon Dioxide Level 29 mmol/L Anion Gap 6.0 mmol/L Blood Urea Nitrogen 34 mg/dl Creatinine 2.53 mg/dl Est Creatinine Clear Calc Drug Dose 36.2 ml/min Estimated GFR () 30.1 Estimated GFR (Non- 26.0 BUN/Creatinine Ratio 13.3 Random Glucose 132 mg/dl Calcium Level 8.7 mg/dl Test 07/05/17 11:15 Bedside Glucose 154 mg/dl Assessment & Plan Acute on chronic systolic heart failure ProBNP on admission 5122 CXR on admission showed no acute findings. Continue IV lasix 10mg BID Cardiology on board Plan for AICD placement on Continue metoprolol 07/05 Clinically improves AICD placed on 07/02 and tolerated procedure well Continue torsemide 10mg daily continue Metoprolol 50mg BID No arrhythmia on tele monitor Not a candidate for VENKATA inhibitor or Entresto due to renal insufficiency. Case discussed with Cardiology Dr. Wlid, and ok to discharge from cardiac standpoint Outpatient follow in 1 week with cardio to check device Recent ECHO showed * The left ventricle is normal in size. * Septal motion is consistent with conduction abnormality. * Left ventricular systolic function is moderately reduced. * Ejection Fraction = 35-40%. * The right ventricular systolic function is normal. * The left atrium is moderately dilated. * The right atrium is moderately dilated. * The aortic valve is sclerotic. * Moderate aortic stenosis. * There is mild mitral regurgitation Chest Pain Prior history of nonischemic cardiomyopathy, mild coronary atherosclerosis by cardiac catheterization 07/02/16 S/P nuclear stress test is performed yesterday suggests ongoing nonischemic cardiomyopathy rather than new obstructive CAD Continue Statin, aspirin, and metoprolol Continue monitor in tele Resolved Paroxysmal Afib Rate control with amiodarone and metoprolol 50mg in am and 25mg pm On Coumadin. INR 1.4 today Continue Coumadin Heparin drip was d/c due to history of recent retroperitoneal bleeding. Chronic kidney disease stage 4 Still elevated from recent baseline ~2.5 Creatine 2.53 creatinine today Avoid nephrotoxic agent Nephrology on board continue monitor BMP Anemia History of retroperitoneal bleed Hgb stable Monitor CBC DM II Last a1c 9.5 Continue holding oral meds Insulin sliding scale coverage Monitor BS DVT px Continue Coumadin INR 1.4 CODE STATUS FULL CODE Disposition Discharge home today Follow up with Dr. Hernandez (Dr. Butts's colleague) on 07/08 @ 1:05 PM Current Inpatient Medications: Current Inpatient Medications Medications (Trade) Dose Ordered Sig/Larry Route Start Time Stop Time Status Last Admin Dose Admin Miscellaneous Information (Consult Glycemic Management Pharmacy) 1 ea UD PRN N/A 06/25/17 16:00 07/25/17 15:59 Insulin Aspart (novoLOG ASPART) SLIDING SCALE If C... ACHS SC 06/25/17 21:00 07/25/17 20:59 07/05/17 12:08 10 UNITS Glucose (Glucose 40% Gel) 15-30 GRAMS 15 GRAMS... UD PRN PO 06/25/17 16:00 07/25/17 15:59 Glucose (Glucose Chew Tab) 4-8 Tablets 4 Tabl... UD PRN PO 06/25/17 16:00 07/25/17 15:59 Dextrose (Dextrose 50% 50ML Syringe) 25-50ML OF 50% DW IV FOR... UD PRN IV 06/25/17 16:00 07/25/17 15:59 Glucagon (Glucagon Inj) 1 mg UD PRN SQ 06/25/17 16:00 07/25/17 15:59 Acetaminophen (Tylenol Tab) 650 mg Q4H PRN PO 06/25/17 16:00 07/25/17 15:59 07/02/17 17:14 650 MG Al Hydrox/Mg Hydrox/Simethicone (Maalox Max Susp) 15 ml Q4H PRN PO 06/25/17 16:00 07/25/17 15:59 Magnesium Hydroxide (Milk Of Magnesia Susp) 30 ml Q12H PRN PO 06/25/17 16:00 07/25/17 15:59 Miscellaneous (Iv Fluids Completed) 1 ea PRN PRN N/A 06/25/17 16:15 06/25/18 16:14 Albuterol (Ventolin Hfa Inhaler) 2 puffs Q4H PRN INH 06/25/17 16:15 07/25/17 16:14 Amiodarone HCl (Cordarone Tab) 200 mg BID PO 06/25/17 21:00 07/25/17 20:59 07/05/17 07:59 200 MG Aspirin (Ecotrin Tab) 81 mg QAM PO 06/26/17 09:00 07/26/17 08:59 07/05/17 08:00 81 MG Duloxetine HCl (Cymbalta Cap) 60 mg DAILY PO 06/26/17 09:00 07/26/17 08:59 07/05/17 07:59 60 MG Gabapentin (Neurontin Tab) 600 mg TID PO 06/25/17 21:00 07/25/17 20:59 07/05/17 07:58 600 MG Albuterol/ Ipratropium (Duoneb) 3 ml QID PRN INH 06/25/17 16:15 07/25/17 16:14 07/01/17 10:50 3 ML Isosorbide Dinitrate (Isordil Tab) 20 mg TID@0700,1200,1700 PO 06/25/17 17:00 07/25/17 16:59 07/05/17 12:07 20 MG Pantoprazole Sodium (Protonix Tab) 40 mg QAM PO 06/26/17 09:00 07/26/17 08:59 07/05/17 08:01 40 MG Rosuvastatin Calcium (Crestor Tab) 40 mg HS PO 06/25/17 21:00 07/25/17 20:59 07/04/17 20:23 40 MG Amlodipine Besylate (Norvasc Tab) 5 mg DAILY PO 06/27/17 09:00 07/26/17 08:59 07/05/17 08:02 5 MG Hydralazine HCl (Apresoline Tab) 25 mg TID PO 06/26/17 14:00 07/25/17 20:59 07/05/17 07:59 25 MG Fluticasone/ Vilanterol (Breo Ellipta 100-25 Mcg/Inh) 1 puffs DAILY INH 07/01/17 09:00 07/31/17 08:59 07/05/17 08:02 1 PUFFS Warfarin Sodium (Coumadin Tab) 5 mg DAILY@16 PO 07/03/17 16:00 08/02/17 15:59 07/04/17 16:02 5 MG Torsemide (Demadex Tab) 10 mg QAM PO 07/04/17 09:00 08/03/17 08:59 07/05/17 07:59 10 MG Metoprolol Succinate (Toprol Xl Tab) 50 mg BID PO 07/04/17 21:00 07/27/17 08:59 07/05/17 08:01 50 MG Insulin Glargine (Lantus Solostar Pen) 10 units HS SC 07/05/17 21:00 08/04/17 20:59
[2017-07-05] MEDS ORDERED: TPRSR50 PO ×2 (14:26→15:23)
[2017-07-05] MEDS ORDERED: DMD20 PO ×2 (14:26→15:23)
[2017-07-05] MEDS ORDERED: APR25 PO ×2 (14:26→15:23)
[2017-07-05] MEDS ORDERED: NRV5 PO ×2 (14:26→15:23)
--- NOTE | 2017-07-05 14:54 | Discharge Instructions ---
Discharge Instructions Date of Service Jul 05, 2017. Admission Reason for Admission: Chest Pain Discharge Discharge Diagnosis / Problem: Acute on chronic systolic heart failure, Atrial fibrillation, CKD stage 4 Discharge Goals Goal(s): Decrease discomfort, Improve function, Improve disease control Activity Recommendations Activity Limitations: resume your previous activity (as tolerated) . Instructions / Follow-Up Instructions / Follow-Up Follow up with your primary care Dr. Hernandez ( Dr. Butts colleague) on 07/08 @ 1: 05 PM Follow up with cardiology in 1 week to check the device (please call cardiology office for the appointment) Follow up with the Coumadin clinic (INR today 1.4) Please Check INR on 07/07 or when instructing by the Coumadin clinic Check BMP within 1 week to monitor electrolytes and kidney function Check CBC within 1 week to monitor hemoglobin Continue oxygen supplement at graphics editor your blood pressure Monitor blood sugar and bring your brood sugar log at your next appointment with Dr. Hernandez Medication Changes Lantus decreased to 12 units at night. Next dose tonight) Novolog changed to 6 units with each meal Amlodipine decreased to 5 mgt daily Metoprolol increased to 50mg twice daily Hydralazine increased to 25mg three times daily Lasix changed to torsemide 10mg daily Keep the incision site clean and dry for the next few days (you may shower, but need to keep the affected site dry). No driving for at least 1 week or longer until instructing by your physician Limit heavy lifting with the involved arm for at least 4 weeks Avoid Extreme motion with the involved arm shoulder for 4-6 weeks after device implantation ( activities such as swimming and golf); this could result in lead dislodgement. Avoid placing your cellular phone directly over your device generator. Try to keep it at least 6 inches away from your device. Do not carry your cellular phone in your shirt pocket when not in use. Magnetic resonance imaging (MRI) scans should be avoided unless your physician deems otherwise Current Hospital Diet Patient's current hospital diet: Diabetes Type 2 Diet, AHA Diet (Heart Healthy) , Low Sodium Diet (2gm Na) Discharge Diet Recommended Diet: AHA Diet (Heart Healthy), Diabetes Type 2 Diet Pending Studies Studies pending at discharge: no Laboratory Results Hemoglobin A1c Test 05/27/17 05:37 Range/Units Estimated Average Glucose 226 mg/dl Hemoglobin A1c 9.5 H 4.5-5.6 % Medical Emergencies . Who to Call and When: Medical Emergencies: If at any time you feel your situation is an emergency, please call 911 immediately. . Non-Emergent Contact Non-Emergency issues call your: Primary Care Provider, Data Management Engineer Call Non-Emergent contact if: you have any medication questions . . "Provider Documentation" section prepared by Barbara Suarez. .
[2017-07-05] MEDS ORDERED: INSULIN GLARGINE SOLOSTAR 100 UNITS/ML 3 ML PEN SC SCH (21:00)
--- NOTE | 2017-07-08 00:34 | Discharge Summary ---
Discharge Summary Date of Service Jul 08, 2017. Discharge Summary Admission Date: Jun 26, 2017 at 14:25 Discharge Date: Jul 05, 2017 Discharge Disposition: Home Principal Diagnosis: Acute on chronic systolic heart failure Atrial fibrillation, CKD stage 4 Secondary Diagnoses/Problems: Atrial fibrillation CKD stage 4 Anemia Chest pain DM type 2 Procedures: Biventricular ICD implantation ECHO Interpretation Summary * Name: NIRANJAN VILLALTA Study Date: 06/26/2017 07:36 AM BP: 114/78 mmHg * Patient Location: [facility]\\S\\[id number]\\[id number]\\[id number] HR: 87 * : 1955 (M/d/yyyy) Gender: Male Height: 68 in * Age: 62 yrs Ethnicity: [place] Weight: 242 lb * Ordering Physician: Janny Middleton * Referring Physician: Self, Referred * Performed By: Han Long RCS * * Reason For Study: Chest Pain * BSA: 2.2 m2 * -- Conclusions -- * The left ventricle is normal in size. * Septal motion is consistent with conduction abnormality. * Left ventricular systolic function is moderately reduced. * Ejection Fraction = 35-40%. * The right ventricular systolic function is normal. * The left atrium is moderately dilated. * The right atrium is moderately dilated. * The aortic valve is sclerotic. * Moderate aortic stenosis. * There is mild mitral regurgitation. Procedure Details * A complete two-dimensional transthoracic echocardiogram was performed (2D, M- mode, Doppler and color flow Doppler). Left Ventricle * The left ventricle is normal in size. * There is normal left ventricular wall thickness. * Ejection Fraction = 35-40%. * Left ventricular systolic function is moderately reduced. * Septal motion is consistent with conduction abnormality. Right Ventricle * The right ventricle is normal size. * The right ventricular systolic function is normal. Atria * The left atrium is moderately dilated. * The right atrium is moderately dilated. * The interatrial septum is intact with no evidence for an atrial septal defect. Mitral Valve * The mitral valve anatomy is normal. * There is mild mitral regurgitation. Tricuspid Valve * The tricuspid valve anatomy is normal. * Significant tricuspid regurgitation is absent. Aortic Valve * The aortic valve is sclerotic. * Moderate aortic stenosis. * There is no significant aortic regurgitation. Pulmonic Valve * The pulmonic valve is not well seen, but is grossly normal. * There is no significant pulmonary regurgitation. Great Vessels * The aortic root and proximal ascending aorta are normal sized. Pericardium/Pleural * There is no pericardial effusion. LEXISCAN PHARMACOLOGIC NUCLEAR STRESS TEST REPORT ORDERING PROVIDER: Gerald Mittal DO INTERPRETING PROVIDER: Parish Sethi DO INDICATION: Congestive heart failure, evaluate for underlying myocardial ischemia. TECHNIQUE: For the stress portion of the study, 33 mCi of Technetium 99 m Cardiolite IV was injected at 08:05 am on 06/29/2017. Thirty minutes following the injection, imaging of the heart was performed in multiple projections. For the rest portion of the study, 11 mCi of Technetium 99 m Cardiolite was injected IV at 09:50 am. One hour following the injection, imaging of the heart was performed in the same projections. STRESS STUDY: The patient received an injection of 0.4 mg of Lexiscan intravenously for the stress portion of the study. The patient described transient chest tightness that resolved early in the post-pharmacologic stress recovery interval. The heart rate response to pharmacologic stress was appropriate. The blood pressure response to pharmacologic stress was appropriate. The resting heart rate of 85 beats per minute rody to a maximum heart rate of 93 beats per minute. This value represents 59% of the maximal age predicted heart rate. The resting blood pressure of 114/84 mmHg rody to a maximum blood pressure of 114/84 mmHg, the lowest blood pressure was 104/67 mmHg. The stress test was terminated at the end of the pharmacologic protocol. Resting EKG revealed atrial flutter with variable conduction at 82 beats per minute, with left bundle branch block, and occasional PVCs. The stress EKG remained unchanged with rate controlled atrial flutter and occasional PVCs with left bundle branch block. The EKG was nondiagnostic for ischemia given the underlying left bundle branch block. FINDINGS: Stress SPECT images reveal homogenous tracer distribution throughout the myocardium. The resting images are unchanged. The left ventricular chamber size was moderately dilated both at stress and at rest. Gated SPECT imaging reveals [id number] global left ventricular hypokinesis with calculated left ventricular ejection fraction of 30% by gated SPECT. CONCLUSION: The Lexiscan nuclear cardiac stress test is negative for ischemia. Left bundle branch block was noted throughout study. Findings are consistent with nonischemic cardiomyopathy. [~ rep ct add3]] ULTRASOUND BILATERAL LOWER EXTREMITY VENOUS CLINICAL HISTORY: Dizziness. Atypical chest pain. Dizziness. Clinical concern for deep venous thrombosis. COMPARISON STUDY: Bilateral lower extremity venous ultrasound dated 04-05. TECHNIQUE: Real-time, grayscale, and color Doppler sonography of the deep veins of the right and left lower extremity was performed from the inguinal crease to the calf. Compression and augmentation were utilized. FINDINGS: There is no sonographic evidence of deep venous thrombosis identified in the right or left lower extremity. The common femoral, superficial femoral, and popliteal veins are patent and normally compressible bilaterally. The greater saphenous vein and the profunda femoris vein at the junction with the common femoral vein are clear in both legs. The visualized calf veins are patent bilaterally. IMPRESSION: There is no sonographic evidence of deep venous thrombosis identified in the right or left lower extremity. Electronically signed by: Guerrero Hebert M.D. 06/25/2017 6:34 PM Dictated Date/Time: 06/25/2017 6:34 PM Consultations: CARDIO NEPHRO Medication Reconciliation New Medications: Amlodipine Besylate (Amlodipine Besylate) 5 Mg Tab 5 MG PO DAILY for 30 Days, #30 TABS Hydralazine Hcl (Apresoline) 25 Mg Tab 25 MG PO TID for 30 Days, #90 TABS Metoprolol Succinate (Metoprolol Succinate ER) 50 Mg Tabcr 50 MG PO BID for 30 Days, #60 TABS Torsemide (Torsemide) 20 Mg Tab 10 MG PO QAM for 30 Days, #15 TAB Continued Medications: Albuterol (Ventolin Hfa) 60 Puffs/5400 Mcg Aers 2 PUFFS INH Q4H PRN for SOB/Wheezing Amiodarone Hcl (Cordarone) 200 Mg Tab 200 MG PO BID, TAB Aspirin (Aspirin Ec) 81 Mg Tab 81 MG PO QAM Cholecalciferol (Vitamin D3) 2,000 Unit Tab 2000 INTER.UNIT PO QAM Duloxetine Hcl (Cymbalta) 60 Mg Cap 60 MG PO DAILY, CAP Fluticasone Furoate-Vilanterol (Breo Ellipta) 1 Inh Inh 1 PUFF PO DAILY Gabapentin (Neurontin) 300 Mg Cap 600 MG PO TID, CAP Insulin Aspart (Novolog Flexpen) 100 Units/Ml Inj 6 UNITS SQ UD 6 units with each meal Insulin Glargine (Lantus Solostar) 100 Unit/Ml Inj 12 UNITS SQ PM, PEN Ipratropium-Albuterol (Duoneb) 3 Ml Nebu 1 TREATMENT INH QID PRN for SOB/Wheezing, INHA Isosorbide Dinitrate (Isordil) 10 Mg Tab 20 MG PO TID, TAB Pantoprazole (Protonix) 40 Mg Tab 40 MG PO QAM Rosuvastatin Calcium (Crestor) 40 Mg Tab 40 MG PO HS, TAB Warfarin Sodium (Coumadin) 5 Mg Tab 5 MG PO DAILY, TAB Discontinued Medications: Amlodipine (Norvasc) 10 Mg Tab 10 MG PO DAILY, TAB Carvedilol (Carvedilol) 25 Mg Tab 12.5 MG PO BID Furosemide (Lasix) 20 Mg Tab 20 MG PO QAM, TAB Hydralazine HCl (Hydralazine HCl) 25 Mg Tab 12.5 MG PO BID Insulin Aspart (Novolog Flexpen) 100 Units/Ml Inj 14 UNITS SQ UD with lunch and dinner Admission Information HPI (per Admitting provider): This is a 62yo M with a PMH of mixed systolic and diastolic HF (EF 35-40%), non- ischemic cardiomyopathy, non-obstructive CAD, left bundle branch block, DM II, A fib (on coumadin), HTN, HLD, asthma/COPD, CKD III and other medical problems listed below who presents with chest pain and SOB beginning this AM. Patient woke up during the night with shortness of breath that was improved once he sat upright in bed. Took his nebulizer at 3:30am which improved his breathing. Wears 2L NC O2 at night. Then started to experience left sided chest pain that he describes as "someone sitting on my chest", 8/10 in severity and made worse with coughing or exertion. Non-radiating. Endorses associated lightheadedness but denies diaphoresis, nausea or vomiting. Notes that his lower legs have been more swollen over the past few days but denies any weight gain overall. Denies fever, chills, syncope, headache, visual changes, palpitations, abdominal pain or bowel/bladder changes. Was admitted May 23- for acute respiratory failure 2/2 influenza/ bilateral PNA and A Fib. States that he has been very sedentary since then and feels weak when ambulating. Had to borrow a family member's walker because he does not have to endurance to move around the house without it. In terms of cardiac history, patient most recently underwent cardiac cath in June 2016 and was found to have nonischemic cardiomyopathy with reduced global systolic function and mild CAD with recommendation for medical management. Most recent echo is from Mar 2017 with EF of 35-40%, moderate concentric LVH, septal wall motion abnormality consistent with left bundle branch block and moderate global hypokinesis otherwise. Has A Fib and is on coumadin. INR of 2.7 today. Physical Exam (per Admitting): General Appearance: WD/WN, no apparent distress, + pertinent finding ( Breathing comfortably on NC O2 ) Head: normocephalic, atraumatic Eyes: normal inspection, PERRL, sclerae normal ENT: normal ENT inspection, hearing grossly normal, pharynx normal Neck: supple, thyroid normal, trachea midline Respiratory/Chest: lungs clear, no respiratory distress, no accessory muscle use, + crackles (faint bibasilar crackles ), + pertinent finding (Left chest with reproducible pain on palpation ) Cardiovascular: no murmur, normal peripheral pulses, + irregularly irregular , + pertinent finding (2+ bilateral pretibial pitting edema ) Abdomen/GI: non tender, soft, no organomegaly Back: normal inspection Extremities/Musculoskelatal: normal inspection, no calf tenderness, non- tender Neurologic/Psych: no motor/sensory deficits, alert, normal mood/affect, oriented x 3 Skin: normal color, warm/dry Hospital Course Acute on chronic systolic heart failure ProBNP on admission 5122 CXR on admission showed no acute findings. Continue IV lasix 10mg BID Cardiology on board Plan for AICD placement on Continue metoprolol 07/05 Clinically improves AICD placed on 07/02 and tolerated procedure well Continue torsemide 10mg daily continue Metoprolol 50mg BID No arrhythmia on tele monitor Not a candidate for VENKATA inhibitor or Entresto due to renal insufficiency. Case discussed with Cardiology Dr. Wild, and ok to discharge from cardiac standpoint Outpatient follow in 1 week with cardio to check device Recent ECHO showed * The left ventricle is normal in size. * Septal motion is consistent with conduction abnormality. * Left ventricular systolic function is moderately reduced. * Ejection Fraction = 35-40%. * The right ventricular systolic function is normal. * The left atrium is moderately dilated. * The right atrium is moderately dilated. * The aortic valve is sclerotic. * Moderate aortic stenosis. * There is mild mitral regurgitation Chest Pain Prior history of nonischemic cardiomyopathy, mild coronary atherosclerosis by cardiac catheterization 07/02/16 S/P nuclear stress test is performed yesterday suggests ongoing nonischemic cardiomyopathy rather than new obstructive CAD Continue Statin, aspirin, and metoprolol Continue monitor in tele Resolved Paroxysmal Afib Rate control with amiodarone and metoprolol 50mg in am and 25mg pm On Coumadin. INR 1.4 today Continue Coumadin Heparin drip was d/c due to history of recent retroperitoneal bleeding. Chronic kidney disease stage 4 Still elevated from recent baseline ~2.5 Creatine 2.53 creatinine today Avoid nephrotoxic agent Nephrology on board continue monitor BMP Anemia History of retroperitoneal bleed Hgb stable Monitor CBC DM II Last a1c 9.5 Continue holding oral meds Insulin sliding scale coverage Monitor BS DVT px Continue Coumadin INR 1.4 CODE STATUS FULL CODE Disposition Discharge home today Follow up with Dr. Hernandez (Dr. Butts's colleague) on 07/08 @ 1:05 PM Total time spent on discharge = 35 minutes This includes examination of the patient, discharge planning, medication reconciliation, and communication with other providers. Discharge Instructions Discharge Instructions Date of Service Jul 05, 2017. Admission Reason for Admission: Chest Pain Discharge Discharge Diagnosis / Problem: Acute on chronic systolic heart failure, Atrial fibrillation, CKD stage 4 Discharge Goals Goal(s): Decrease discomfort, Improve function, Improve disease control Activity Recommendations Activity Limitations: resume your previous activity (as tolerated) . Instructions / Follow-Up Instructions / Follow-Up Follow up with your primary care Dr. Hernandez ( Dr. Butts colleague) on 07/08 @ 1: 05 PM Follow up with cardiology in 1 week to check the device (please call cardiology office for the appointment) Follow up with the Coumadin clinic (INR today 1.4) Please Check INR on 07/07 or when instructing by the Coumadin clinic Check BMP within 1 week to monitor electrolytes and kidney function Check CBC within 1 week to monitor hemoglobin Continue oxygen supplement at awake overnight monitor your blood pressure Monitor blood sugar and bring your brood sugar log at your next appointment with Dr. Hernandez Medication Changes Lantus decreased to 12 units at night. Next dose tonight) Novolog changed to 6 units with each meal Amlodipine decreased to 5 mgt daily Metoprolol increased to 50mg twice daily Hydralazine increased to 25mg three times daily Lasix changed to torsemide 10mg daily Keep the incision site clean and dry for the next few days (you may shower, but need to keep the affected site dry). No driving for at least 1 week or longer until instructing by your physician Limit heavy lifting with the involved arm for at least 4 weeks Avoid Extreme motion with the involved arm shoulder for 4-6 weeks after device implantation ( activities such as swimming and golf); this could result in lead dislodgement. Avoid placing your cellular phone directly over your device generator. Try to keep it at least 6 inches away from your device. Do not carry your cellular phone in your shirt pocket when not in use. Magnetic resonance imaging (MRI) scans should be avoided unless your physician deems otherwise Current Hospital Diet Patient's current hospital diet: Diabetes Type 2 Diet, AHA Diet (Heart Healthy) , Low Sodium Diet (2gm Na) Discharge Diet Recommended Diet: AHA Diet (Heart Healthy), Diabetes Type 2 Diet Pending Studies Studies pending at discharge: no Laboratory Results Hemoglobin A1c Test 05/27/17 05:37 Range/Units Estimated Average Glucose 226 mg/dl Hemoglobin A1c 9.5 H 4.5-5.6 % Medical Emergencies . Who to Call and When: Medical Emergencies: If at any time you feel your situation is an emergency, please call 911 immediately. . Non-Emergent Contact Non-Emergency issues call your: Primary Care Provider, [employer]acer Call Non-Emergent contact if: you have any medication questions . . "Provider Documentation" section prepared by Barbara Suarez. . Additional Copies To Mabel Butts M.D.
== END 2017-07-05 15:30 | disposition home or self-care (01) | DRG 226 ==
LOC: C.EDB 13:20 → C.MED 15:46 → ENRESERV 16:18 → OBSVTOIN 06-26 14:25 → ENRESERV 06-29 15:27 → C.2E 06-29 15:44
PROVIDERS: ADMIT Hospitalist; ATTEND Internal Medicine
PROC: 02HK3KZ Insertion of Defibrillator Lead into Right Ventricle, Percutaneous Approach (ICD-10-PCS; principal; 2017-07-02 13:08)
PROC: 02H43KZ Insertion of Defibrillator Lead into Coronary Vein, Percutaneous Approach (ICD-10-PCS; principal; 2017-07-02 13:08)
PROC: 0JH638Z Insertion of Defibrillator Generator into Chest Subcutaneous Tissue and Fascia, Percutaneous Approach (ICD-10-PCS; principal; 2017-07-02 13:08)
PROC: 02H63KZ Insertion of Defibrillator Lead into Right Atrium, Percutaneous Approach (ICD-10-PCS; principal; 2017-07-02 13:08)
DX: I13.0 Hypertensive heart and chronic kidney disease with heart failure and stage 1 through stage 4 chronic kidney disease, or unspecified chronic kidney disease (principal); I50.23 Acute on chronic systolic (congestive) heart failure; J96.21 Acute and chronic respiratory failure with hypoxia; N18.4 Chronic kidney disease, stage 4 (severe); N17.9 Acute kidney failure, unspecified; I48.92 Unspecified atrial flutter; I48.0 Paroxysmal atrial fibrillation; E11.22 Type 2 diabetes mellitus with diabetic chronic kidney disease; E11.65 Type 2 diabetes mellitus with hyperglycemia; E11.649 Type 2 diabetes mellitus with hypoglycemia without coma; R79.1 Abnormal coagulation profile; D50.9 Iron deficiency anemia, unspecified; I42.9 Cardiomyopathy, unspecified; I25.10 Atherosclerotic heart disease of native coronary artery without angina pectoris; I44.7 Left bundle-branch block, unspecified; I44.0 Atrioventricular block, first degree; I35.0 Nonrheumatic aortic (valve) stenosis; J44.9 Chronic obstructive pulmonary disease, unspecified; G47.33 Obstructive sleep apnea (adult) (pediatric); E78.5 Hyperlipidemia, unspecified; E55.9 Vitamin D deficiency, unspecified; F17.220 Nicotine dependence, chewing tobacco, uncomplicated; Z87.01 Personal history of pneumonia (recurrent); Z79.01 Long term (current) use of anticoagulants; Z79.4 Long term (current) use of insulin; Z79.51 Long term (current) use of inhaled steroids; Z79.82 Long term (current) use of aspirin; Z79.899 Other long term (current) drug therapy; Z83.3 Family history of diabetes mellitus; Z82.49 Family history of ischemic heart disease and other diseases of the circulatory system; Z82.5 Family history of asthma and other chronic lower respiratory diseases; X83.8XXA Intentional self-harm by other specified means, initial encounter

== ENCOUNTER 2017-09-04 22:37 | Emergency (ER) | payer BC ==
[~2017-09-04] VITALS: Ht 172.7 cm; Wt 112.4 kg
[~2017-09-04 22:37] MED LIST changes: +AMIO200T4 PO; -AMLO-114 PO; +ASPI81TA28 PO; +CHOL20007 PO; -CMD5 PO; -CRD200 PO; +DMD20 PO; -FURO-85 PO; -INSDGIPEN SC; +INSDGIPEN SQ; +IPRASOL4 INH; -ISOS20TA15 PO; +ISS/10 PO; +NRV5 PO; +NVLGI/PEN SQ; -OXGN; +PANT40TA PO; +PRVHFAIN INH; +ROSU40TA PO; +TPRSR50 PO; +WARF5TAB90 PO
[2017-09-04 22:39] VITALS: TEMP 36.5; Ht 172.7 cm; Wt 112.4 kg
[2017-09-04] MEDS ORDERED: DIPHTHERIA/TETANUS/PERTUSSIS 0.5 ML SYR/VIAL IM. ONE (23:00)
[2017-09-04] MEDS ORDERED: DOXYCYCLINE HYCLATE 100 MG CAP PO ONE (23:00)
[2017-09-04] MEDS ORDERED: APR25 PO (23:08)
[2017-09-04] MEDS ORDERED: AMLO-110 PO (23:08)
[2017-09-04] MEDS ORDERED: METO-217 PO (23:08)
[2017-09-04] MEDS ORDERED: NVLGI/PEN SC (23:08)
[2017-09-04] MEDS ORDERED: TORS20TA2 PO (23:08)
[2017-09-04 23:31] VITALS: BP 148/97; PULSE 67; O2SAT 92
--- NOTE | 2017-09-04 23:36 | EMERGENCY ROOM VISIT NOTE ---
ED Visit Note First contact with patient: 22:42 CHIEF COMPLAINT: Tick bite HISTORY OF PRESENT ILLNESS: This 62-year-old patient presents to the emergency department with family after they noticed a tick embedded right abdomen. The patient did try to remove it. The head is still intact. It had been on for unknown period of time. The patient's tetanus shot is not up-to-date. The patient denies any rashes, fevers, chills, or lightheadedness. The patient denies joint tenderness. REVIEW OF SYSTEMS: A 6 system review of systems was completed with positives and pertinent negatives listed in the HPI. ALLERGIES: None MEDICATIONS: Coumadin, reviewed PMH: Medical Problems: (1) Asthma Status: Chronic (2) CAD (coronary artery disease) Permanent Comment: nonobstructive Status: Chronic (3) CKD (chronic kidney disease), stage III Status: Chronic (4) DM type 2 (diabetes mellitus, type 2) Status: Chronic (5) Dyslipidemia Status: Chronic (6) Hypertension Status: Chronic (7) LBBB (left bundle branch block) Status: Chronic (8) Mild aortic stenosis Status: Chronic (9) Nonischemic cardiomyopathy Permanent Comment: EF 45-49% on echo 08/2014 Status: Chronic Surgical Problems: (1) H/O cardiac catheterization Permanent Comment: 03/29/2012- mild nonobstructive CAD Status: Chronic (2) S/p adrenal gland surgery Status: Chronic SOCIAL HISTORY: No drug use PHYSICAL EXAM: Vital Signs: Reviewed Nurse's notes, vital signs hypertensive. GENERAL: Pleasant male, in no acute distress, well-developed, well-nourished. SKIN: There is part of a tick embedded in the patient's right side of the abdomen. There is a small zone of inflammation and eccymosis around the spot where the tick is. The skin is otherwise clear. NEUROLOGICAL: Alert and oriented to person place and time, cooperative. Sensory and motor functions grossly intact. ED COURSE: I examined the patient. The area was cleansed. The head of the tick was removed using 18-gauge needle and forceps under magnification. The whole head was removed. There was no bleeding. The patient tolerated the procedure well. The area was dressed with bacitracin and a bandage. The patient was given doxycycline 200 mg p.o. for prophylaxis. Patient was counseled on signs and symptoms of Lyme disease. Utilizing shared decision- making process, we have opted to observe the patient as there is no bull's-eye rash and he has no flulike symptoms. Patient is on Coumadin and doxycycline can prolong the INR. Patient was advised if any symptoms develop to see his family care doctor or the ER immediately. Patient verbalized understanding of this. The patient was discharged home in good condition. DIAGNOSIS: #1 tick bite and removal of the abdominal wall Patient's blood pressure is elevated and he is referred back to his family doctor. DISCHARGE INSTRUCTIONS & TREATMENT: As below Problem List Medical Problems: (1) Asthma Status: Chronic (2) CAD (coronary artery disease) Permanent Comment: nonobstructive Status: Chronic (3) CKD (chronic kidney disease), stage III Status: Chronic (4) DM type 2 (diabetes mellitus, type 2) Status: Chronic (5) Dyslipidemia Status: Chronic (6) Hypertension Status: Chronic (7) LBBB (left bundle branch block) Status: Chronic (8) Mild aortic stenosis Status: Chronic (9) Nonischemic cardiomyopathy Permanent Comment: EF 45-49% on echo 08/2014 Status: Chronic Surgical Problems: (1) H/O cardiac catheterization Permanent Comment: 03/29/2012- mild nonobstructive CAD Status: Chronic (2) S/p adrenal gland surgery Status: Chronic Current/Historical Medications Scheduled Amiodarone Hcl (Cordarone), 200 MG PO QAM Amlodipine (Norvasc), 5 MG PO DAILY Aspirin (Aspirin Ec), 81 MG PO QAM Cholecalciferol (Vitamin D3), 2,000 INTER.UNIT PO QAM Duloxetine Hcl (Cymbalta), 60 MG PO DAILY Fluticasone Furoate-Vilanterol (Breo Ellipta), 1 PUFF PO DAILY Gabapentin (Neurontin), 600 MG PO BID Hydralazine Hcl (Apresoline), 25 MG PO TID Insulin Aspart (Novolog Flexpen), 7 UNITS SQ QDB Insulin Aspart (Novolog Flexpen), 14 UNITS SC BID Insulin Glargine (Lantus Solostar), 45 UNITS SQ PM Isosorbide Dinitrate (Isordil), 20 MG PO TID Metoprolol Succinate (Toprol Xl), 50 MG PO BID Pantoprazole (Protonix), 40 MG PO QAM Rosuvastatin Calcium (Crestor), 40 MG PO HS Torsemide (Demadex), 10 MG PO QAM Warfarin Sodium (Coumadin), 5 MG PO DAILY Scheduled PRN Albuterol (Ventolin Hfa), 2 PUFFS INH Q4H PRN for SOB/Wheezing Ipratropium-Albuterol (Duoneb), 1 TREATMENT INH QID PRN for SOB/Wheezing Allergies Coded Allergies: No Known Allergies (Verified , 09/04/17) Vital Signs Date Time Temp Pulse Resp B/P (MAP) Pulse Ox O2 Delivery O2 Flow Rate FiO2 09/04/17 23:31 67 18 148/97 92 Room Air 09/04/17 22:47 99 22 171/104 98 09/04/17 22:39 36.5 63 20 211/109 94 Room Air Medications Administered Medications (Trade) Dose Ordered Sig/Larry Route Start Time Stop Time Status Last Admin Dose Admin Doxycycline Hyclate (Vibramycin Cap) 200 mg ONE ONCE PO 09/04/17 23:00 09/04/17 23:01 DC 09/04/17 22:56 200 MG Diphtheria/ Pertussis/Tetanus Vacc (Adacel Inj) 0.5 ml ONCE ONCE IM. 09/04/17 23:00 09/04/17 23:01 DC 09/04/17 22:56 0.5 ML Departure Information Referrals No Doctor, Assigned (PCP) Patient Instructions [facility]
== END 2017-09-04 23:33 | disposition home or self-care (01) ==
LOC: C.EDB 22:38
DX: T14.8XXA Other injury of unspecified body region, initial encounter (principal); W57.XXXA Bitten or stung by nonvenomous insect and other nonvenomous arthropods, initial encounter; J45.909 Unspecified asthma, uncomplicated; I25.10 Atherosclerotic heart disease of native coronary artery without angina pectoris; N18.3 Chronic kidney disease, stage 3 (moderate); E11.9 Type 2 diabetes mellitus without complications; E78.5 Hyperlipidemia, unspecified; I10 Essential (primary) hypertension; I44.7 Left bundle-branch block, unspecified; I35.0 Nonrheumatic aortic (valve) stenosis; I42.9 Cardiomyopathy, unspecified; Z79.01 Long term (current) use of anticoagulants; Z51.81 Encounter for therapeutic drug level monitoring; Z23 Encounter for immunization

== ENCOUNTER 2017-12-03 16:45 | Inpatient (IN) | payer BC ==
[~2017-12-03] VITALS: Ht 172.7 cm; Wt 108.2 kg
[~2017-12-03 16:45] MED LIST changes: +AMLO5TAB3 PO; -DMD20 PO; +FLUT1INH INH; -FLUT1INH PO; -GABA-113 PO; +IPRA-64 INH; -IPRASOL4 INH; +METO-217 PO; -NRV5 PO; +TORS20TA2 PO; -TPRSR50 PO
[2017-12-03 17:51] LABS: BASO % 0.2 %; BASO ABS # 0.01 K/uL (0-0.2); EOS % 1.8 %; EOS ABS # 0.08 K/uL (0-0.5); HEMOGLOBIN 11.7 g/dL (14.0-18.0); IG# 0.01 K/uL (0.00-0.02); LYMPH % 14.4 %; LYMPH ABS # 0.63 K/uL (1.2-3.4); MEAN CELL VOLUME 77.8 fL (80-100); MEAN CORPUSCULAR HGB CONC 33.4 g/dl (32-36); MEAN PLATELET VOLUME 9.7 fL (7.4-10.4); MONO % 9.1 %; NEUT % 74.3 %; NEUT ABS # 3.25 K/uL (1.4-6.5); PLATELET COUNT 129 K/uL (130-400); RED CELL DISTRIBUTION WIDTH CV 15.3 % (11.5-14.5); WHITE BLOOD COUNT 4.38 K/uL (4.8-10.8)
--- NOTE | 2017-12-03 17:52 | EMERGENCY ROOM VISIT NOTE ---
History Report prepared by Felipe: Elly Baker Under the Supervision of: Dr. Sheng Sinha M.D. First contact with patient: 17:27 Chief Complaint: DIZZY Stated Complaint: DIZZINESS/ILLNESS Nursing Triage Summary: pt reports to room B7 via ALS with c/o dizziness and increased weakness over the last several days. Per EMS, when pt was first assessed his pulse was in the 30's. Pt has pacemaker, pulse now 63. Pt was diaphoretic, dizzy, shaky and weak. Pt reports that this has been going on the last several days. BSG [employer] REFORMATORY was 485. Pt is an insulin dependent diabetic. BSG for this RN upon arrival was 479. Pt reports to wear 2L NC as needed at home. Pt c/o increased SOB. Pt alert and oriented. Denies any other pain at this time. History of Present Illness The patient is a 62 year old male who presents to the Emergency Room with complaints of constant shortness of breath the past couple days. The patient states that it feels like he can't "catch his breath" and it is worse with lying down. He also states that he has some phlegm and it feels like there is something in his lungs, as well as a fullness in his stomach. The patient also feels dizzy and weak all over. He states that he also has blurred vision. The patient denies any chest pain, fevers, headaches, and abdominal pain. He also denies any swelling in his legs. The patient states that these symptoms have happened before and the dizziness, weakness, and shortness of breath all came together and he fell as a result. The patient is on 2L of oxygen at night and is not normally on any during the day, however, he has had to use some with his shortness of breath over the past few days. He states that his regular breathing treatments are only helping for a short amount of time. The patient also states that he has been eating and drinking normally and has not gained any weight recently. The patient states that he does have a pacemaker that he got put in a couple of months ago. He also states that he is warfarin for his cardiomyopathy. [facility] in [place]. Per the patient' s family, the patient's sugar levels have been all over today, and he takes insulin normally. The patient is also on water pills. Source of History: patient, family Onset: couple of days ago Position: chest Quality: other (shortness of breath ) Timing: constant Modifying Factors (Worsening): other (lying flat ) Modifying Factors (Relieving): other (breathing treatments ) Associated Symptoms: + weakness, No fevers, No headache, No chest pain, No abdominal pain Note: additional symptoms: fullness in his stomach, blurred vision, dizziness. Review of Systems See HPI for pertinent positives and negatives. A total of ten systems were reviewed and were otherwise negative. Past Medical & Surgical Medical Problems: (1) Acute on chronic renal failure (2) Asthma (3) Atrial fibrillation (4) CAD (coronary artery disease) (5) CKD (chronic kidney disease), stage III (6) DM type 2 (diabetes mellitus, type 2) (7) Dyslipidemia (8) Hypertension (9) LBBB (left bundle branch block) (10) Mild aortic stenosis (11) Nonischemic cardiomyopathy Surgical Problems: (1) H/O cardiac catheterization (2) S/p adrenal gland surgery Family History Diabetes mellitus SISTER BROTHER FH: CHF (congestive heart failure) MOTHER Hypertension SON Social History Smoking Status: Never Smoker Drug Use: none Marital Status: Housing Status: lives with significant other Occupation Status: retired Current/Historical Medications Scheduled Amiodarone Hcl (Cordarone), 200 MG PO QAM Amlodipine (Norvasc), 5 MG PO DAILY Aspirin (Aspirin Ec), 81 MG PO QAM Cholecalciferol (Vitamin D3), 2,000 INTER.UNIT PO QAM Duloxetine Hcl (Cymbalta), 60 MG PO DAILY Fluticasone Furoate-Vilanterol (Breo Ellipta), 100 MCG INH DAILY Hydralazine Hcl (Apresoline), 25 MG PO TID Insulin Aspart (Novolog Flexpen), 7 UNITS SQ QAM Insulin Aspart (Novolog Flexpen), 14 SQ BID Insulin Glargine (Lantus Solostar), 48 UNITS SQ PM Isosorbide Dinitrate (Isordil), 20 MG PO TID Metoprolol Succinate (Toprol Xl), 50 MG PO BID Pantoprazole (Protonix), 40 MG PO QAM Rosuvastatin Calcium (Crestor), 40 MG PO HS Torsemide (Demadex), 10 MG PO QAM Warfarin Sodium (Coumadin), 5-7.5 MG PO DAILY Scheduled PRN Albuterol (Ventolin Hfa), 2 PUFFS INH Q4H PRN for SOB/Wheezing Ipratropium-Albuterol (Duoneb), 1 TREATMENT INH QID PRN for SOB/Wheezing Allergies Coded Allergies: No Known Allergies (Verified , 10/25/17) Physical Exam Vital Signs Date Time Temp Pulse Resp B/P (MAP) Pulse Ox O2 Delivery O2 Flow Rate FiO2 12/03/17 18:25 62 22 99/43 95 Nasal Cannula 2.0 12/03/17 17:40 96 Nasal Cannula 2.0 12/03/17 17:20 96 Nasal Cannula 2.0 12/03/17 17:01 62 12/03/17 16:58 61 25 83/51 96 Room Air Physical Exam GENERAL: Awake, alert, well-appearing, in no distress on 2L O2 HENT: Normocephalic, atraumatic. Oropharynx unremarkable. EYES: Normal conjunctiva. Sclera non-icteric. NECK: Supple. No nuchal rigidity. RESPIRATORY: No wheezes. Mild labored breathing. Diminished bases with crackles. CARDIAC: Normal rate. Normal rhythm. Extremities warm and well perfused. GI: Soft. No tenderness to palpation. No rebound or guarding. No masses. Moderate abdominal distension. RECTAL: Deferred. MUSCULOSKELETAL: Atraumatic. Chest examination reveals no tenderness. There is no CVA tenderness to palpation. LOWER EXTREMITIES: Calves are equal size bilaterally and non-tender. Slight abrasions over right bailey with trace bilateral pedal edema. NEURO: Normal sensorium. No sensory or motor deficits noted. No facial droop. SKIN: Warm and dry. No rash or jaundice noted. Medical Decision & Procedures ER Provider Diagnostic Interpretation: Radiology results as stated below per my review and radiologist interpretation: CT SCAN OF THE BRAIN WITHOUT IV CONTRAST CLINICAL HISTORY: Generalized weakness. COMPARISON STUDY: CT of the brain dated 05/27/2017. TECHNIQUE: Unenhanced axial CT scan of the brain is performed from the vertex to the skull base. A dose lowering technique was utilized adhering to the principles of ALARA. CT DOSE: 580.48 mGy.cm FINDINGS: Brain parenchyma: There are age-related involutional changes noting [id number] patchy subcortical and periventricular microangiopathic change. There is no hemorrhage, mass effect, or evidence of acute territorial ischemia by CT criteria. Summers-white matter is preserved. No extra-axial fluid collection is seen. Ventricles, sulci, cisterns: Prominent secondary to involutional change. Intracranial vasculature: There is atherosclerotic calcification of the cavernous carotid and vertebral arteries. Calvarium: Unremarkable. Sinuses and mastoids: The visualized paranasal sinuses are clear. The mastoid air cells are well pneumatized. Orbits: The bony orbits are grossly intact. IMPRESSION: There is no hemorrhage, mass effect, or evidence of acute territorial ischemia by CT criteria. Electronically signed by: Guerrero Hebert M.D. 12/03/2017 6:14 PM Dictated Date/Time: 12/03/2017 6:12 PM SINGLE VIEW CHEST CLINICAL HISTORY: Generalized weakness. FINDINGS: An AP, portable, upright chest radiograph is compared to study dated 10/25/2017. The examination is degraded by portable technique and patient rotation. A 3-lead cardiac AICD is unchanged in position and partially obscures the left chest. The heart is enlarged and there is atherosclerotic calcification of the thoracic aorta. The pulmonary vasculature is noncongested. The lungs and pleural spaces are clear. No pneumothorax is seen. The bony thorax is grossly intact. IMPRESSION: 1. Cardiomegaly and AICD. There is no radiographic evidence of congestive failure. 2. The lungs are clear. Electronically signed by: Guerrero Hebert M.D. 12/03/2017 5:53 PM Dictated Date/Time: 12/03/2017 5:52 PM Laboratory Results 12/03/17 16:53 Red Blood Count 4.50, Mean Corpuscular Volume 77.8, Mean Corpuscular Hemoglobin 26.0, Mean Corpuscular Hemoglobin Concent 33.4, Mean Platelet Volume 9.7, Neutrophils (%) (Auto) 74.3, Lymphocytes (%) (Auto) 14.4, Monocytes (%) (Auto) 9.1, Eosinophils (%) (Auto) 1.8, Basophils (%) (Auto) 0.2, Neutrophils # (Auto) 3.25, Lymphocytes # (Auto) 0.63, Monocytes # (Auto) 0.40, Eosinophils # (Auto) 0.08, Basophils # (Auto) 0.01 12/03/17 16:53 Test 12/03/17 16:53 12/03/17 17:47 12/03/17 18:56 White Blood Count 4.38 K/uL (4.8-10.8) Red Blood Count 4.50 M/uL (4.7-6.1) Hemoglobin 11.7 g/dL (14.0-18.0) Hematocrit 35.0 % (42-52) Mean Corpuscular Volume 77.8 fL (80-100) Mean Corpuscular Hemoglobin 26.0 pg (25-34) Mean Corpuscular Hemoglobin Concent 33.4 g/dl (32-36) Platelet Count 129 K/uL (130-400) Mean Platelet Volume 9.7 fL (7.4-10.4) Neutrophils (%) (Auto) 74.3 % Lymphocytes (%) (Auto) 14.4 % Monocytes (%) (Auto) 9.1 % Eosinophils (%) (Auto) 1.8 % Basophils (%) (Auto) 0.2 % Neutrophils # (Auto) 3.25 K/uL (1.4-6.5) Lymphocytes # (Auto) 0.63 K/uL (1.2-3.4) Monocytes # (Auto) 0.40 K/uL (0.11-0.59) Eosinophils # (Auto) 0.08 K/uL (0-0.5) Basophils # (Auto) 0.01 K/uL (0-0.2) RDW Standard Deviation 43.0 fL (36.4-46.3) RDW Coefficient of Variation 15.3 % (11.5-14.5) Immature Granulocyte % (Auto) 0.2 % Immature Granulocyte # (Auto) 0.01 K/uL (0.00-0.02) Prothrombin Time 19.6 SECONDS (9.0-12.0) Prothromb Time International Ratio 1.9 (0.9-1.1) Activated Partial Thromboplast Time 31.3 SECONDS (21.0-31.0) Partial Thromboplastin Ratio 1.2 Anion Gap 9.0 mmol/L (3-11) Est Creatinine Clear Calc Drug Dose 23.7 ml/min Estimated GFR () 18.3 Estimated GFR (Non- 15.8 BUN/Creatinine Ratio 15.6 (10-20) Calcium Level 8.6 mg/dl (8.5-10.1) Magnesium Level 2.1 mg/dl (1.8-2.4) Total Bilirubin 0.4 mg/dl (0.2-1) Direct Bilirubin 0.1 mg/dl (0-0.2) Aspartate Amino Transf (AST/SGOT) 35 U/L (15-37) Alanine Aminotransferase (ALT/SGPT) 55 U/L (12-78) Alkaline Phosphatase 108 U/L (45-117) Troponin I 0.032 ng/ml (0-0.045) Pro-B-Type Natriuretic Peptide 8244 pg/ml (0-900) Total Protein 6.7 gm/dl (6.4-8.2) Albumin 3.1 gm/dl (3.4-5.0) Lipase 117 U/L (73-393) Beta-Hydroxybutyric Acid 0.70 mg/dL (0.2-2.81) Thyroid Stimulating Hormone (TSH) 2.320 uIu/ml (0.300-4.500) Lactic Acid Level 1.5 mmol/L (0.4-2.0) Bedside Glucose 443 mg/dl (70-99) Laboratory results reviewed by me ECG Per My Interpretation Indication: SOB/dyspnea Rate (beats per minute): 68 Rhythm: other (AV paced) Findings: no ectopy, other (no ST elevation) Comparison ECG Date: 10/25/2017 Change: no significant change ED Course 1728: The patient was evaluated in room B7. A complete history and physical exam was performed. 1833: I discussed the case with Mignon Sifuentes. She suggested IV infusion, insulin drip, and she will evaluate the patient for admission. Medical Decision Differential diagnosis: Etiologies such as infections, reactive airway disease, pneumonia, pneumothorax , COPD, CHF, cardiac ischemia, pulmonary embolism, musculoskeletal, gastrointestinal, as well as others were entertained. Patient presents complaining of worsening shortness of breath of the past several days with some weakness dizziness and diaphoresis today. On Coumadin. Nebulizers minimally helping at home. Denies any weight gain but increased belly distention. Denies trauma or falls. Denies chest pain. Denies headache. Patient somewhat off. Brittle diabetic. Hyperglycemic noted. Transiently hypotensive here but improved without intervention. Significantly short of breath on exertion. Believe likely heart failure component. Lower suspicion for pneumonia. Doubt PE or dissection. Anticoagulated on Coumadin. No evidence of troponin and doubt cardiac injury. Significant hyperglycemia. Chest x-ray without evidence of pneumonia or significant effusion but proBNP is somewhat elevated. No evidence of acidosis and doubt DKA. Acute kidney injury noted. Unsure of his shortness of breath may be somewhat related to mild fluid overload versus shortness breath and generalized weakness from his hyperglycemia and PAM. Given this feel he requires inpatient admission. [facility] hospitalist was contacted for admission. They recommended insulin drip which was ordered per their request. Medication Reconcilliation Current Medication List: was personally reviewed by me Blood Pressure Screening Patient's blood pressure: Low blood pressure (transient and improved without acute intervention. admitted.) Consults Time Called: 1830 Consulting Physician: Mignon Sifuentes Returned Call: 1832 I discussed the case with Mignon Sifuentes. She suggested IV infusion, insulin drip, and she will evaluate the patient for admission. Impression Primary Impression: Weakness Additional Impressions: Acute kidney injury Hyperglycemia Shortness of breath Scribe Attestation The scribe's documentation has been prepared under my direction and personally reviewed by me in its entirety. I confirm that the note above accurately reflects all work, treatment, procedures, and medical decision making performed by me. Departure Information Dispostion Being Evaluated By Hospitalist Referrals Mabel Butts M.D. (PCP) Patient Instructions My [facility] Problem Qualifiers
--- NOTE | 2017-12-03 17:55 | DIAGNOSTIC IMAGING REPORT ---
SINGLE VIEW CHEST CLINICAL HISTORY: Generalized weakness. FINDINGS: An AP, portable, upright chest radiograph is compared to study dated 10/25/2017. The examination is degraded by portable technique and patient rotation. A 3-lead cardiac AICD is unchanged in position and partially obscures the left chest. The heart is enlarged and there is atherosclerotic calcification of the thoracic aorta. The pulmonary vasculature is noncongested. The lungs and pleural spaces are clear. No pneumothorax is seen. The bony thorax is grossly intact. IMPRESSION: 1. Cardiomegaly and AICD. There is no radiographic evidence of congestive failure. 2. The lungs are clear. Electronically signed by: Guerrero Hebert M.D. 12/03/2017 5:53 PM Dictated Date/Time: 12/03/2017 5:52 PM
[2017-12-03 17:59] LABS: INR 1.9 (0.9-1.1); PTT PATIENT 31.3 SECONDS (21.0-31.0)
[2017-12-03 18:03] LABS: ALBUMIN 3.1 gm/dl (3.4-5.0); CALCIUM 8.6 mg/dl (8.5-10.1); CREATININE 3.81 mg/dl (0.60-1.40); POTASSIUM 4.4 mmol/L (3.5-5.1)
[2017-12-03 18:07] LABS: TOTAL PROTEIN 6.7 gm/dl (6.4-8.2)
--- NOTE | 2017-12-03 18:16 | DIAGNOSTIC IMAGING REPORT ---
CT SCAN OF THE BRAIN WITHOUT IV CONTRAST CLINICAL HISTORY: Generalized weakness. COMPARISON STUDY: CT of the brain dated 05/27/2017. TECHNIQUE: Unenhanced axial CT scan of the brain is performed from the vertex to the skull base. A dose lowering technique was utilized adhering to the principles of ALARA. CT DOSE: 580.48 mGy.cm FINDINGS: Brain parenchyma: There are age-related involutional changes noting [id number] patchy subcortical and periventricular microangiopathic change. There is no hemorrhage, mass effect, or evidence of acute territorial ischemia by CT criteria. Summers-white matter is preserved. No extra-axial fluid collection is seen. Ventricles, sulci, cisterns: Prominent secondary to involutional change. Intracranial vasculature: There is atherosclerotic calcification of the cavernous carotid and vertebral arteries. Calvarium: Unremarkable. Sinuses and mastoids: The visualized paranasal sinuses are clear. The mastoid air cells are well pneumatized. Orbits: The bony orbits are grossly intact. IMPRESSION: There is no hemorrhage, mass effect, or evidence of acute territorial ischemia by CT criteria. Electronically signed by: Guerrero Hebert M.D. 12/03/2017 6:14 PM Dictated Date/Time: 12/03/2017 6:12 PM
[2017-12-03] MEDS ORDERED: INSULIN IV INFUSION PROTOCOL ONE (18:45)
[2017-12-03] MEDS ORDERED: INSULIN PROTOCOL GOAL RANGE ONE ×2 (18:45→19:15)
[2017-12-03] MEDS ORDERED: MODERATE STRESS LEVEL ONE ×2 (18:45→19:15)
[2017-12-03] MEDS ORDERED: INSULIN IV INFUSION PROTOCOL STA (19:05)
[2017-12-03] MEDS ORDERED: GLUCOSE 10 TABS/TUBE PO PRN ×2 (19:30)
[2017-12-03] MEDS ORDERED: GLUCOSE 40% GEL 15 GM TUBE PO PRN ×2 (19:30)
[2017-12-03] MEDS ORDERED: DEXTROSE 50% 50 ML SYR IV PRN ×2 (19:30)
[2017-12-03] MEDS ORDERED: GLUCAGON FOR INJ 1 MG VIAL IM PRN (19:30)
[2017-12-03] MEDS ORDERED: ACETAMINOPHEN 325 MG TAB PO PRN (19:30)
[2017-12-03] MEDS ORDERED: NovoLIN R BOLUS FROM BAG IV ONE (19:30)
[2017-12-03] MEDS ORDERED: INSULIN REGULAR 250 UNITS in SODIUM CHLORIDE 0.9% 250ML 250 ML IV SCH (19:30)
[2017-12-03] MEDS ORDERED: GLUCAGON FOR INJ 1 MG VIAL SQ PRN (19:30)
[2017-12-03] MEDS ORDERED: CARBOHYDRATES FOR HYPOGLYCEMIA PO PRN ×2 (19:30)
[2017-12-03] MEDS ORDERED: NVLGI/PEN SQ (19:38)
--- NOTE | 2017-12-03 20:29 | History and Physical ---
History & Physical Date & Time of Service: Dec 03, 2017 at 20:01 Chief Complaint: Dizziness/Illness Primary Care Physician: Mabel Butts M.D. History of Present Illness This is a 62 year old male with significant PMH of S-CHF EF 44%, Moderate , HTN, HLD, uncontrolled T2DM last A1C 8.9 09/09/17, CKD stage III-IV, Afib, correction anticoagulation with Coumadin, Anemia of chronic disease, Pacer/AICD, COPD/ Asthma, GERD who presents to [facility] secondary to weakness , dizziness, hyperglycemia, shortness of breath x 2-3 days. Family is at bedside, notes symptoms have been ongoing for the past 2-3 years; however over the past 2-3 days have significantly worsened. He complains of dizziness described as a spinning sensation, loss of balance, sweats, generalized weakness , elevated blood sugar, TESFAYE, productive cough clear sputum, occasional wheezing. Last fall was 2-3 days ago without injury. He denies documented fever, chills, presyncopal symptoms, chest pain, shortness breath at rest, palpitations, hemoptysis, nausea, vomiting, diarrhea, pain, change in bowel or bladder habits. Appetite is normal for him, feels he is drinking well. elicits does not drink enough fluid. Has not tried anything OTC. Has used nebulizer treatments 2-3 times daily for the past few days which does improve shortness of breath; however symptoms shortly return. Recently seen at beginning of month by geography professor subha Mckenzie interrogated. Family notes blood sugars average 120s-130s, he checks blood sugar once daily, is compliant with insulin regimen. This morning initial blood sugar was 70 and by afternoon was almost 500. In ED patient was noted to have elevation in BUN and creatinine at 63 and 3.81 respectively, hyperglycemic 494, BNP is 8244, lactic acid 1.5, INR 1.9, H&H stable 11.7/35.0, platelet 129, WBC 4.3, sodium 130, potassium 4.4, beta hydroxybutyrate acid 0.70, TSH 2.3. CT head was negative for any acute abnormalities but did show chronic age-related changes. Chest x- ray was negative for any cardiopulmonary disease no overt CHF noted. He was noted to be hypotensive in ED abd on O2 via nasal cannula. He uses O2 at home at . Patient appears to have acute on chronic CKD with hypotension as well as mild exacerbation of Asthma/COPD. Past Medical/Surgical History Medical Problems: (1) Asthma Status: Chronic (2) Atrial fibrillation Status: Chronic (3) CAD (coronary artery disease) Permanent Comment: nonobstructive Status: Chronic (4) CKD (chronic kidney disease), stage III Status: Chronic (5) Uncontrolled DM type 2 (diabetes mellitus, type 2) Status: Chronic (6) Dyslipidemia Status: Chronic (7) Hypertension Status: Chronic (8) LBBB (left bundle branch block) Status: Chronic (9)Moderate aortic stenosis Status: Chronic (10) Nonischemic cardiomyopathy Permanent Comment: EF 44% with mod on 09/25/17 Status: Chronic Surgical Problems: (1) H/O cardiac catheterization Permanent Comment: 03/29/2012- mild nonobstructive CAD Status: Chronic (2) History of colonoscopy Status: Chronic (3) History of esophagogastroduodenoscopy (EGD) Status: Chronic (4) Presence of combination internal cardiac defibrillator (ICD) and pacemaker Status: Chronic (5) S/p adrenal gland surgery Status: Chronic Family History Diabetes mellitus SISTER BROTHER FH: CHF (congestive heart failure) MOTHER Hypertension SON Social History Smoking Status: Never Smoker Smokeless Tobacco Use: Yes (daily) Alcohol Use: none Drug Use: none Marital Status: Housing status: lives with significant other 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) Immunizations History of Influenza Vaccine: Yes Influenza Vaccine Date: Jun 17, 2017 History of Tetanus Vaccine?: Yes Tetanus Immunization Date: Oct 25, 2004 History of Pneumococcal: Yes Pneumococcal Date: Jun 17, 2017 History of Hepatitis B Vaccine: Unknown Allergies Coded Allergies: No Known Allergies (Verified , 10/25/17) Home Medications Scheduled Amiodarone Hcl (Cordarone), 200 MG PO QAM Amlodipine (Norvasc), 5 MG PO DAILY Aspirin (Aspirin Ec), 81 MG PO QAM Cholecalciferol (Vitamin D3), 2,000 INTER.UNIT PO QAM Duloxetine Hcl (Cymbalta), 60 MG PO DAILY Fluticasone Furoate-Vilanterol (Breo Ellipta), 100 MCG INH DAILY Hydralazine Hcl (Apresoline), 25 MG PO TID Insulin Aspart (Novolog Flexpen), 7 UNITS SQ QAM Insulin Aspart (Novolog Flexpen), 14 SQ BID Insulin Glargine (Lantus Solostar), 48 UNITS SQ PM Isosorbide Dinitrate (Isordil), 20 MG PO TID Metoprolol Succinate (Toprol Xl), 50 MG PO BID Pantoprazole (Protonix), 40 MG PO QAM Rosuvastatin Calcium (Crestor), 40 MG PO HS Torsemide (Demadex), 10 MG PO QAM Warfarin Sodium (Coumadin), 5-7.5 MG PO DAILY Scheduled PRN Albuterol (Ventolin Hfa), 2 PUFFS INH Q4H PRN for SOB/Wheezing Ipratropium-Albuterol (Duoneb), 1 TREATMENT INH QID PRN for SOB/Wheezing Review of Systems As noted per HPI, 10 systems reviewed and negative unless noted above. Physical Exam Vital Signs Date Time Temp Pulse Resp B/P (MAP) Pulse Ox O2 Delivery O2 Flow Rate FiO2 12/03/17 18:25 62 22 99/43 95 Nasal Cannula 2.0 12/03/17 17:40 96 Nasal Cannula 2.0 12/03/17 17:20 96 Nasal Cannula 2.0 12/03/17 17:01 62 12/03/17 16:58 61 25 83/51 96 Room Air General Appearance: + mild distress, + obese, + pertinent finding (Drowsy male , answers questions appropriately, Appears older than age, poorly groomed) Head: normocephalic, atraumatic Eyes: normal inspection, sclerae normal, + pertinent finding (excessive facial hair) ENT: normal ENT inspection, hearing grossly normal, + pertinent finding ( mucous membranes dry) Neck: supple, no adenopathy, thyroid normal, no JVD, no carotid bruits Respiratory/Chest: chest non-tender, lungs clear, normal breath sounds, no respiratory distress, no accessory muscle use, + pertinent finding (on O2 via NC 2 L) Cardiovascular: no edema, no gallop, no JVD, + systolic murmur (2/6, heard throughout, best RUSB), + irregularly irregular (rate controlled), + abnormal peripheral pulses (+1 b/l pedal pulses) Abdomen/GI: normal bowel sounds, non tender, soft, + distended (secondary to obesity) Back: normal inspection, no muscle spasm, normal range of motion Extremities/Musculoskelatal: normal inspection, no calf tenderness, normal capillary refill, no pedal edema Neurologic/Psych: no motor/sensory deficits, alert, normal mood/affect, oriented x 3 Skin: normal color, warm/dry, + rash (b/l excoriations to anterior pretibial surfaces) Diagnostics Laboratory Results Results Past 24 Hours Test 12/03/17 16:53 12/03/17 16:56 12/03/17 17:47 12/03/17 18:56 Range/Units White Blood Count 4.38 4.8-10.8 K/uL Red Blood Count 4.50 4.7-6.1 M/uL Hemoglobin 11.7 14.0-18.0 g/dL Hematocrit 35.0 42-52 % Mean Corpuscular Volume 77.8 80-100 fL Mean Corpuscular Hemoglobin 26.0 25-34 pg Mean Corpuscular Hemoglobin Concent 33.4 32-36 g/dl Platelet Count 129 130-400 K/uL Mean Platelet Volume 9.7 7.4-10.4 fL Neutrophils (%) (Auto) 74.3 % Lymphocytes (%) (Auto) 14.4 % Monocytes (%) (Auto) 9.1 % Eosinophils (%) (Auto) 1.8 % Basophils (%) (Auto) 0.2 % Neutrophils # (Auto) 3.25 1.4-6.5 K/uL Lymphocytes # (Auto) 0.63 1.2-3.4 K/uL Monocytes # (Auto) 0.40 0.11-0.59 K/uL Eosinophils # (Auto) 0.08 0-0.5 K/uL Basophils # (Auto) 0.01 0-0.2 K/uL RDW Standard Deviation 43.0 36.4-46.3 fL RDW Coefficient of Variation 15.3 11.5-14.5 % Immature Granulocyte % (Auto) 0.2 % Immature Granulocyte # (Auto) 0.01 0.00-0.02 K/uL Prothrombin Time 19.6 9.0-12.0 SECONDS Prothromb Time International Ratio 1.9 0.9-1.1 Activated Partial Thromboplast Time 31.3 21.0-31.0 SECONDS Partial Thromboplastin Ratio 1.2 Sodium Level 130 136-145 mmol/L Potassium Level 4.4 3.5-5.1 mmol/L Chloride Level 94 98-107 mmol/L Carbon Dioxide Level 26 21-32 mmol/L Anion Gap 9.0 3-11 mmol/L Blood Urea Nitrogen 60 7-18 mg/dl Creatinine 3.81 0.60-1.40 mg/dl Est Creatinine Clear Calc Drug Dose 23.7 ml/min Estimated GFR () 18.3 Estimated GFR (Non- 15.8 BUN/Creatinine Ratio 15.6 10-20 Random Glucose 494 70-99 mg/dl Calcium Level 8.6 8.5-10.1 mg/dl Magnesium Level 2.1 1.8-2.4 mg/dl Total Bilirubin 0.4 0.2-1 mg/dl Direct Bilirubin 0.1 0-0.2 mg/dl Aspartate Amino Transf (AST/SGOT) 35 15-37 U/L Alanine Aminotransferase (ALT/SGPT) 55 12-78 U/L Alkaline Phosphatase 108 45-117 U/L Troponin I 0.032 0-0.045 ng/ml Pro-B-Type Natriuretic Peptide 8244 0-900 pg/ml Total Protein 6.7 6.4-8.2 gm/dl Albumin 3.1 3.4-5.0 gm/dl Lipase 117 73-393 U/L Beta-Hydroxybutyric Acid 0.70 0.2-2.81 mg/dL Thyroid Stimulating Hormone (TSH) 2.320 0.300-4.500 uIu/ml Bedside Glucose 479 443 70-99 mg/dl Lactic Acid Level 1.5 0.4-2.0 mmol/L Microbiology Results 12/03/17 Blood Culture, Received Pending 12/03/17 Blood Culture, Received Pending Diagnostic Radiology CXR IMPRESSION: 1. Cardiomegaly and AICD. There is no radiographic evidence of congestive failure. 2. The lungs are clear. Chest CT IMPRESSION: There is no hemorrhage, mass effect, or evidence of acute territorial ischemia by CT criteria. EKG AV dual paced with rate 68 bpm, afib, unchanged Impression Assessment and Plan This is a 62 year old male with significant PMH of S-CHF EF 44%, Moderate , HTN, HLD, uncontrolled T2DM last A1C 8.9 09/09/17, CKD stage III-IV, Afib, correction anticoagulation with Coumadin, Anemia of chronic disease, Pacer/AICD, COPD/ Asthma, Gerd who presents to [facility] secondary to weakness , dizziness, hyperglycemia, shortness of breath x 2-3 days. In ED patient was noted to have elevation in BUN and creatinine at 63 and 3.81 respectively, hyperglycemic 494, BNP is 8244, lactic acid 1.5, INR 1.9, H&H stable 11.7/35.0, platelet 129, WBC 4.3, sodium 130, potassium 4.4, beta hydroxybutyrate acid 0.70 , TSH 2.3. CT head was negative for any acute abnormalities but did show chronic age-related changes. Chest x-ray was negative for any cardiopulmonary disease no overt CHF noted. He was noted to be hypotensive in ED abd on O2 via nasal cannula. He uses O2 at home at . Patient appears to have acute on chronic CKD with hypotension as well as mild exacerbation of Asthma/COPD. Acute/Chronic CKD Stage IIIb/IV Hyponatremia -Baseline creatinine 2.2 -admit to med/surg telemetry -Hold antihypertensive and nephrotoxic medications including torsemide, amlodipine, hydralazine -Start IVF NS at 75cc/hr cautiously secondary to CHF/ x 2-3 liters -Repeat CBC, BMP, Mag in a.m. -if creatinine increases consult nephrology Uncontrolled T2DM Insulin Dependent Last A1c 8.9 09/09/17 -exacerbated secondary to PAM, not in DKA or HHS -IVF NS at 75cc/hr -Lantus 24 units SQ BID -Novolog sliding scale -Adjust insulin accordingly -Check A1C in a.m. Acute hypoxic Respiratory failure Mild COPD Exac -continue BREO -RT nebulizer treatments -Avoid IV steroids secondary to hyperglycemia Anemia of Chronic Disease Thrombocytopenia -H/H Stable -PLT ct stable 129 -Last was 128 on 09/09/17 -no s/sx of bleeding Systolic CHF with EF 44% Moderate S/P AICD/PACER -euvolemic on exam -Daily weights, Low Na diet -proBNP 8244 -Continue BB, Imdur. -Torsemide on hold HTN -Patient actually hypotensive -Hold antihypertensives including amlodipine, hydralazine, torsemide -Continue beta-effie HLD -Continue Crestor AFib -Continue metoprolol and amiodarone for rate and rhythm control -Continue Coumadin 7.5 mg M/ and 5 mg all other days -INR 1.9, will repeat INR in a.m. and dose accordingly GERD -continue PPI Disposition Patient will discharged home when medically stable Attending addendum: The patient was seen and examined in emergency room He is a 62-year-old male with significant past medical history of cardiomyopathy status post AICD, COPD, CKD and atrial fibrillation on Coumadin He has been complaining of shortness of breath for the last 3 days associated with dizziness Does not have any chest pain, palpitation, abdominal pain, nausea and/or vomiting On examination: Minimal distress at rest Hemodynamically stable Chest-decreased breath sounds with occasional wheezing on both sides No crackles Heart-S1-S2, irregular rhythm with a 2/6 systolic murmur over precordium Abdomen-soft, nontender, no organomegaly Extremities-trace to no edema bilaterally SPECIAL EDUCATION COORDINATOR-alert,awake and oriented 3 no focal neuro deficit Admission labs, imaging studies reviewed Has acute on chronic kidney disease, respiratory failure likely secondary to COPD and dehydration Doubt any pulmonary embolism with inr of 1.9 Agree with assessment and plan as outlined above Dr. Jessica Avalos Resuscitation Status Full code Discussed with patient and family at bedside VTE Prophylaxis Will order VTE Prophylaxis: Yes (Continue Coumadin)
[2017-12-03 20:44] VITALS: BP 153/88; PULSE 98; TEMP 36.6; O2SAT 95; BMI 36.3
[2017-12-03] MEDS ORDERED: INSULIN ASPART 100 UNITS/ML 3 ML PEN SC SCH (21:00)
[2017-12-03] MEDS ORDERED: LEVALBUTEROL/IPRATROPIUM NEB INH SCH (21:00)
[2017-12-03] MEDS ORDERED: INSULIN GLARGINE SOLOSTAR 100 UNITS/ML 3 ML PEN SC SCH (21:00)
[2017-12-03] MEDS: WARFARIN SOD 5 MG TAB PO SCH (22:03)
[2017-12-03] MEDS: METOPROLOL SUCC 50MG EXT REL TAB PO SCH (22:04)
[2017-12-03] MEDS: SODIUM CHLORIDE 0.9% 1000ML 1,000 ML IV SCH (22:04)
[2017-12-03] MEDS: ROSUVASTATIN CALCIUM 20 MG TAB PO SCH (22:04)
[2017-12-03] MEDS: INSULIN ASPART 100 UNITS/ML 3 ML PEN SC SCH (22:11)
[2017-12-03 23:46] VITALS: BP 158/83; PULSE 80; TEMP 37.4; O2SAT 95
[2017-12-04] VITALS (11 sets, daily range): BP systolic 115–149; BP diastolic 66–81; PULSE 63–86; TEMP 36.3–36.8; O2SAT 90–97; Ht 172.7 cm; Wt 108.2 kg
[2017-12-04] MEDS: LEVALBUTEROL 1.25MG/0.5ML NEB INH SCH ×4 (02:17→19:46)
[2017-12-04] MEDS: IPRATROPIUM BROMIDE NEB SOLN 0.02% 2.5 ML VIAL INH SCH ×4 (02:17→19:46)
[2017-12-04] MEDS ORDERED: INSULIN GLARGINE SOLOSTAR 100 UNITS/ML 3 ML PEN SC ONE (02:30)
[2017-12-04 07:26] LABS: HEMATOCRIT 34.9 % (42-52); HEMOGLOBIN 11.5 g/dL (14.0-18.0); MEAN CELL VOLUME 77.9 fL (80-100); MEAN CORPUSCULAR HEMOGLOBIN 25.7 pg (25-34); MEAN PLATELET VOLUME 9.4 fL (7.4-10.4); PLATELET COUNT 119 K/uL (130-400); RED CELL DISTRIBUTION WIDTH CV 15.4 % (11.5-14.5); WHITE BLOOD COUNT 4.43 K/uL (4.8-10.8)
[2017-12-04 07:34] LABS: INR 1.9 (0.9-1.1)
[2017-12-04 08:06] LABS: CALCIUM 8.5 mg/dl (8.5-10.1); CREATININE 3.62 mg/dl (0.60-1.40); POTASSIUM 3.5 mmol/L (3.5-5.1)
[2017-12-04] MEDS: AMIODARONE 200 MG TAB PO SCH (08:52)
[2017-12-04] MEDS: ISOSORBIDE DINITRATE 10 MG TAB PO SCH ×3 (08:52→17:48)
[2017-12-04] MEDS: METOPROLOL SUCC 50MG EXT REL TAB PO SCH ×2 (08:52→19:43)
[2017-12-04] MEDS: CHOLECALCIFEROL 1000 INTER.UNIT TAB PO SCH (08:53)
[2017-12-04] MEDS: DULOXETINE HCL 60 MG CAP PO SCH (08:53)
[2017-12-04] MEDS: PANTOprazole SOD 40 MG TAB PO SCH (08:53)
[2017-12-04] MEDS: ASPIRIN 81 MG ECTAB PO SCH (08:53)
[2017-12-04] MEDS: INSULIN ASPART 100 UNITS/ML 3 ML PEN SC SCH ×4 (09:04→21:34)
[2017-12-04 10:05] LABS: HEMOGLOBIN A1C 11.7 % (4.5-5.6)
--- NOTE | 2017-12-04 10:18 | Clinical Documentation Query ---
NIEVES Contreras : CLINICAL DOCUMENTATION QUERY Patient is a 62 year old male presenting for evaluation of weakness, dizziness, hyperglycemia, shortness of breath x 2-3 days. Documentation includes "Acute/Chronic CKD Stage IIIb/IV" and " acute on chronic kidney disease". Both of these statements literally translate to acute kidney disease on chronic kidney disease, the former of which codes to an unspecified disorder of the kidney. That is, this is not equivalent in coding terminology or code assignment to PAM/acute renal failure. Please clarify as clinically appropriate. Thank you. In your clinical opinion is this patient being managed for: ( x ) Acute kidney failure ( ) Not Agree ( ) Other explanation of clinical findings (No explanation is considered a No Response) ( ) Unable to determine ( ) Need to Discuss (Phone CDS or qliq) (No discussion is considered a No Response) The medical record reflects the following clinical findings, treatment, and risk factors. Clinical Indicators: As above Treatment: IVF, serial chemistries Risk Factors: Age, CKD III Please clarify and document your clinical opinion in the progress notes and discharge summary. Terms such as "probable", "suspected", "likely", "questionable", "possible", or "still to be ruled out" are acceptable. IF IN AGREEMENT, YOU MUST DOCUMENT ABOVE DIAGNOSTIC STATEMENT IN DAILY PROGRESS NOTES AND DISCHARGE SUMMARY. This document is not part of the patient's record. Thank You, Augustin Mireles RN [phone]
[2017-12-04] MEDS: SODIUM CHLORIDE 0.9% 1000ML 1,000 ML IV SCH ×2 (12:05→21:40)
[2017-12-04] MEDS ORDERED: WARFARIN SOD 7.5 MG TAB PO SCH (16:00)
--- NOTE | 2017-12-04 16:15 | Progress Note ---
Subjective Date of Service: Dec 04, 2017. Subjective Pt evaluation today including: conversation w/ patient, physical exam, lab review, review of studies, review of inpatient medication list Saw/examined the patient in room 237 He states he came in with some shortness of breath, usually with exertion Denies any currently, denies chest pain States he is hoping something can be done about his shortness of breath; also complaining about dizziness and multiple falls at home States he's complaint with his insulin, and he's unsure why his diabetes is so uncontrolled Problem List Medical Problems: (1) Acute kidney injury Status: Acute (2) CHF (congestive heart failure) Status: Acute (3) CHF (congestive heart failure) Status: Acute (4) Diffuse abdominal pain Status: Acute (5) Dyspnea Status: Acute (6) Elevated troponin Status: Acute (7) Hyperglycemia Status: Acute (8) Precordial chest pain Status: Acute (9) Renal cyst Status: Acute (10) Shortness of breath Status: Acute (11) Shortness of breath Status: Acute (12) Shortness of breath Status: Acute (13) Tick bite Status: Acute (14) Weakness Status: Acute Review of Systems Constitutional: + weakness, No fever, No chills Respiratory: + shortness of breath, + dyspnea on exertion, No cough, No sputum , No wheezing, No dyspnea at rest, No hemoptysis Cardiac: No chest pain Abdomen: No pain, No nausea, No vomiting, No diarrhea Neurologic: + weakness, + vertigo, + balance problems, No memory loss, No paralysis, No numbness/tingling Heme: No abnormal bleeding/bruising Medications Current Inpatient Medications Medications (Trade) Dose Ordered Sig/Larry Route Start Time Stop Time Status Last Admin Dose Admin Sodium Chloride 1,000 ml @ 75 mls/hr [id number] IV 12/03/17 19:30 12/05/17 11:29 12/04/17 12:05 75 MLS/HR Acetaminophen (Tylenol Tab) 650 mg Q4H PRN PO 12/03/17 19:30 01/02/18 19:29 Insulin Aspart (novoLOG ASPART) SLIDING SCALE If C... ACHS SC 12/03/17 21:00 01/02/18 20:59 12/04/17 12:23 6 UNITS Glucose (Glucose 40% Gel) 15-30 GRAMS 15 GRAMS... UD PRN PO 12/03/17 19:30 01/02/18 19:29 Glucose (Glucose Chew Tab) 4-8 Tablets 4 Tabl... UD PRN PO 12/03/17 19:30 01/02/18 19:29 Dextrose (Dextrose 50% 50ML Syringe) 25-50ML 25ML FOR ... UD PRN IV 12/03/17 19:30 01/02/18 19:29 Glucagon (Glucagon Inj) 1 mg UD PRN SQ 12/03/17 19:30 01/02/18 19:29 Carbohydrates (Carbohydrates For Hypoglycemia) 15-30 GRAMS 15 grams if BSG 54-69... UD PRN PO 12/03/17 19:30 01/02/18 19:29 Amiodarone HCl (Cordarone Tab) 200 mg QAM PO 12/04/17 09:00 01/03/18 08:59 12/04/17 08:52 200 MG Aspirin (Ecotrin Tab) 81 mg QAM PO 12/04/17 09:00 01/03/18 08:59 12/04/17 08:53 81 MG Duloxetine HCl (Cymbalta Cap) 60 mg DAILY PO 12/04/17 09:00 01/03/18 08:59 12/04/17 08:53 60 MG Isosorbide Dinitrate (Isordil Tab) 20 mg TID@0700,1200,1700 PO 12/04/17 07:00 01/03/18 06:59 12/04/17 12:24 20 MG Metoprolol Succinate (Toprol Xl Tab) 50 mg BID PO 12/03/17 21:00 01/02/18 20:59 12/04/17 08:52 50 MG Pantoprazole Sodium (Protonix Tab) 40 mg QAM PO 12/04/17 09:00 01/03/18 08:59 12/04/17 08:53 40 MG Rosuvastatin Calcium (Crestor Tab) 40 mg HS PO 12/03/17 21:00 01/02/18 20:59 12/03/17 22:04 40 MG Warfarin Sodium (Coumadin Tab) 5 mg SuTuWeThSa@1600 PO 12/03/17 21:15 01/02/18 21:14 8/16/18 22:03 5 MG Warfarin Sodium (Coumadin Tab) 7.5 mg MoFr@1600 PO 12/04/17 16:00 01/03/18 15:59 Cholecalciferol (Vitamin D Tab) 2,000 inter.unit QAM PO 12/04/17 09:00 01/03/18 08:59 12/04/17 08:53 2,000 INTER.UNIT Miscellaneous Information (Order Awaiting Action) 1 ea QS N/A 12/04/17 08:00 01/03/18 07:59 Ipratropium Jeddo (Atrovent 0.02% 0.5MG/2.5ML Neb) 0.5 mg Q6R INH 12/04/17 03:00 01/03/18 02:59 12/04/17 14:02 0.5 MG Levalbuterol (Xopenex 1.25MG/ 0.5ML Neb) 1.25 mg Q6R INH 12/04/17 03:00 01/03/18 02:59 12/04/17 14:01 1.25 MG Insulin Glargine (Lantus Solostar Pen) 25 units Q12 SC 12/04/17 21:00 01/02/18 20:59 Objective Vital Signs Date Time Temp Pulse Resp B/P (MAP) Pulse Ox O2 Delivery O2 Flow Rate FiO2 12/04/17 14:02 82 18 96 Room Air 12/04/17 12:10 36.6 63 20 115/66 (82) 96 12/04/17 08:00 Nasal Cannula 2.0 12/04/17 08:00 90 Room Air 12/04/17 07:52 36.8 75 20 136/81 (99) 90 12/04/17 07:14 77 18 97 Room Air 12/04/17 03:51 36.7 66 20 131/77 (95) 97 Room Air 12/04/17 02:18 84 18 94 Nasal Cannula 2.0 12/04/17 00:00 Nasal Cannula 2.0 12/03/17 23:46 37.4 80 20 158/83 (108) 95 Room Air 12/03/17 20:44 36.6 98 18 153/88 95 Room Air 12/03/17 20:14 67 21 173/95 95 12/03/17 20:01 173/95 12/03/17 19:46 151/84 12/03/17 19:31 139/82 12/03/17 19:18 129/63 12/03/17 19:16 97/56 12/03/17 19:15 67 21 12/03/17 19:02 103/53 12/03/17 18:46 84/51 12/03/17 18:45 62 23 18 18:31 84/57 12/03/17 18:25 62 22 99/43 95 Nasal Cannula 2.0 12/03/17 18:25 99/43 12/03/17 17:46 92/55 12/03/17 17:45 60 16 98 12/03/17 17:40 96 Nasal Cannula 2.0 12/03/17 17:31 103/72 12/03/17 17:20 96 Nasal Cannula 2.0 12/03/17 17:16 97/65 12/03/17 17:15 62 19 98 12/03/17 17:06 84/52 12/03/17 17:01 62 12/03/17 17:01 83/51 12/03/17 16:58 61 25 83/51 96 Room Air 12/03/17 16:48 130/82 Physical Exam General Appearance: no apparent distress Respiratory/Chest: + decreased breath sounds Cardiovascular: + systolic murmur Abdomen: normal bowel sounds, non tender, soft Extremities: no pedal edema, no calf tenderness Skin: + pertinent finding (excoriations b/l LE) Laboratory Results Last 24 Hours Test 12/03/17 16:53 12/03/17 16:56 12/03/17 17:47 12/03/17 18:56 White Blood Count 4.38 K/uL Red Blood Count 4.50 M/uL Hemoglobin 11.7 g/dL Hematocrit 35.0 % Mean Corpuscular Volume 77.8 fL Mean Corpuscular Hemoglobin 26.0 pg Mean Corpuscular Hemoglobin Concent 33.4 g/dl Platelet Count 129 K/uL Mean Platelet Volume 9.7 fL Neutrophils (%) (Auto) 74.3 % Lymphocytes (%) (Auto) 14.4 % Monocytes (%) (Auto) 9.1 % Eosinophils (%) (Auto) 1.8 % Basophils (%) (Auto) 0.2 % Neutrophils # (Auto) 3.25 K/uL Lymphocytes # (Auto) 0.63 K/uL Monocytes # (Auto) 0.40 K/uL Eosinophils # (Auto) 0.08 K/uL Basophils # (Auto) 0.01 K/uL RDW Standard Deviation 43.0 fL RDW Coefficient of Variation 15.3 % Immature Granulocyte % (Auto) 0.2 % Immature Granulocyte # (Auto) 0.01 K/uL Prothrombin Time 19.6 SECONDS Prothromb Time International Ratio 1.9 Activated Partial Thromboplast Time 31.3 SECONDS Partial Thromboplastin Ratio 1.2 Sodium Level 130 mmol/L Potassium Level 4.4 mmol/L Chloride Level 94 mmol/L Carbon Dioxide Level 26 mmol/L Anion Gap 9.0 mmol/L Blood Urea Nitrogen 60 mg/dl Creatinine 3.81 mg/dl Est Creatinine Clear Calc Drug Dose 23.7 ml/min Estimated GFR () 18.3 Estimated GFR (Non- 15.8 BUN/Creatinine Ratio 15.6 Random Glucose 494 mg/dl Calcium Level 8.6 mg/dl Magnesium Level 2.1 mg/dl Total Bilirubin 0.4 mg/dl Direct Bilirubin 0.1 mg/dl Aspartate Amino Transf (AST/SGOT) 35 U/L Alanine Aminotransferase (ALT/SGPT) 55 U/L Alkaline Phosphatase 108 U/L Troponin I 0.032 ng/ml Pro-B-Type Natriuretic Peptide 8244 pg/ml Total Protein 6.7 gm/dl Albumin 3.1 gm/dl Lipase 117 U/L Beta-Hydroxybutyric Acid 0.70 mg/dL Thyroid Stimulating Hormone (TSH) 2.320 uIu/ml Bedside Glucose 479 mg/dl 443 mg/dl Lactic Acid Level 1.5 mmol/L Test 12/03/17 20:33 12/04/17 02:13 12/04/17 06:55 12/04/17 11:05 Bedside Glucose 441 mg/dl 313 mg/dl 251 mg/dl White Blood Count 4.43 K/uL Red Blood Count 4.48 M/uL Hemoglobin 11.5 g/dL Hematocrit 34.9 % Mean Corpuscular Volume 77.9 fL Mean Corpuscular Hemoglobin 25.7 pg Mean Corpuscular Hemoglobin Concent 33.0 g/dl RDW Standard Deviation 44.0 fL RDW Coefficient of Variation 15.4 % Platelet Count 119 K/uL Mean Platelet Volume 9.4 fL Prothrombin Time 19.9 SECONDS Prothromb Time International Ratio 1.9 Sodium Level 138 mmol/L Potassium Level 3.5 mmol/L Chloride Level 101 mmol/L Carbon Dioxide Level 28 mmol/L Anion Gap 9.0 mmol/L Blood Urea Nitrogen 59 mg/dl Creatinine 3.62 mg/dl Est Creatinine Clear Calc Drug Dose 25.0 ml/min Estimated GFR () 19.5 Estimated GFR (Non- 16.8 BUN/Creatinine Ratio 16.2 Random Glucose 153 mg/dl Estimated Average Glucose 289 mg/dl Hemoglobin A1c 11.7 % Calcium Level 8.5 mg/dl Magnesium Level 2.3 mg/dl Assessment and Plan This is a 62 year old male with a past medical history of aortic stenosis, mild systolic CHF with EF around 40-45%, HTN, HLD, uncontrolled insulin dependent DM2 , CKD stage 3-4, A. fib on long-term anticoagulation, sick sinus syndrome s/p pacemaker, COPD, GERD, anemia - presents with shortness of breath and elevated blood sugars Acute Kidney Injury superimposed on CKD stage 3-4 Hyponatremia - resolved - possible underlying dehydration - baseline creat is 2.2, currently >3 - I'll continue the NS at 75mL/hr - monitor for overload - avoiding nephrotoxic agents whenever able Acute Shortness of Breath Moderate Aortic Stenosis - not hypoxic on admission - unsure of what the underlying cause is, though aortic stenosis is a possibility - patient does have a COPD diagnosis, though not wheezing on exam - currently not requiring oxygen, will do nebs as needed Insulin Dependent DM2 - uncontrolled, Ha1c is 11.7% - states he is compliant with his medications - currently on Lantus 25 units BID and sliding scale - will consult pharmacy glycemic control - will need new regimen for his insulin to have tighter control Chronic Systolic CHF - EF is around 40-45% - does not appear overloaded - holding Torsemide due to kidney function - continue b-effie, Isordil - using Isordil/Hydralazine combination in place of an VENKATA-I as outpatient, likely due to kidney function Paroxysmal A. Fib - continue b-effie and Amiodarone - Coumadin with goal INR of 2-3 Anemia of Chronic Disease Thrombocytopenia - H/H Stable - platelets stable stable 129 HTN - Continue beta-effie - holding hydralazine, Isordil; monitor BP HLD - Continue Crestor GERD - continue PPI DVT ppx - Coumadin FULL CODE
[2017-12-04] MEDS ORDERED: PHARMACY GLYCEMIC MGMT CONSULT PRN (16:33)
[2017-12-04] MEDS ORDERED: POTASSIUM CHLORIDE 10 MEQ TABCR PO STA (16:47)
[2017-12-04] MEDS: ROSUVASTATIN CALCIUM 20 MG TAB PO SCH (19:45)
[2017-12-04] MEDS ORDERED: INSULIN GLARGINE SOLOSTAR 100 UNITS/ML 3 ML PEN SC SCH (21:00)
[2017-12-04] MEDS ORDERED: INSULIN HUMAN REGULAR PER UNIT 8 UNITS in SYRINGE 0 ML IV ONE (21:15)
[2017-12-05] VITALS (11 sets, daily range): BP systolic 129–150; BP diastolic 77–89; PULSE 62–88; TEMP 36.3–36.9; O2SAT 93–98
[2017-12-05] MEDS: INSULIN ASPART 100 UNITS/ML 3 ML PEN SC SCH ×6 (00:22→21:07)
[2017-12-05] MEDS: IPRATROPIUM BROMIDE NEB SOLN 0.02% 2.5 ML VIAL INH SCH ×4 (01:58→18:56)
[2017-12-05] MEDS: LEVALBUTEROL 1.25MG/0.5ML NEB INH SCH ×4 (01:58→18:57)
[2017-12-05 06:07] LABS: HEMATOCRIT 33.6 % (42-52); HEMOGLOBIN 10.9 g/dL (14.0-18.0); MEAN CELL VOLUME 78.5 fL (80-100); MEAN CORPUSCULAR HEMOGLOBIN 25.5 pg (25-34); MEAN CORPUSCULAR HGB CONC 32.4 g/dl (32-36); MEAN PLATELET VOLUME 9.1 fL (7.4-10.4); PLATELET COUNT 112 K/uL (130-400); RED CELL DISTRIBUTION WIDTH CV 15.4 % (11.5-14.5); RED CELL DISTRIBUTION WIDTH SD 44.1 fL (36.4-46.3); WHITE BLOOD COUNT 4.45 K/uL (4.8-10.8)
[2017-12-05 06:17] LABS: INR 2.1 (0.9-1.1)
[2017-12-05 06:36] LABS: CALCIUM 8.1 mg/dl (8.5-10.1); CREATININE 2.73 mg/dl (0.60-1.40); POTASSIUM 3.5 mmol/L (3.5-5.1)
[2017-12-05] MEDS: ISOSORBIDE DINITRATE 10 MG TAB PO SCH ×3 (07:31→17:33)
[2017-12-05] MEDS: CHOLECALCIFEROL 1000 INTER.UNIT TAB PO SCH (07:32)
[2017-12-05] MEDS: AMIODARONE 200 MG TAB PO SCH (07:32)
[2017-12-05] MEDS: METOPROLOL SUCC 50MG EXT REL TAB PO SCH ×2 (07:33→21:04)
[2017-12-05] MEDS: PANTOprazole SOD 40 MG TAB PO SCH (07:33)
[2017-12-05] MEDS: ASPIRIN 81 MG ECTAB PO SCH (07:33)
[2017-12-05] MEDS: DULOXETINE HCL 60 MG CAP PO SCH (07:34)
[2017-12-05] MEDS ORDERED: INSULIN GLARGINE SOLOSTAR 100 UNITS/ML 3 ML PEN SC ONE (12:00)
--- NOTE | 2017-12-05 13:37 | Pharmacy Progress Note ---
Glycemic Control Intl Consult Date of Service Dec 05, 2017. Scope Glycemic Pharmacist consulted by Dr Rose on 12/04/17 for glycemic control and to write orders per [facility] inpatient glycemic control protocol Objective Weight (Kilograms): 108.200 Accuchecks BSG (last 24hrs): Test 12/04/17 16:07 12/04/17 19:55 12/04/17 23:56 12/05/17 03:55 Bedside Glucose 221 mg/dl (70-99) 277 mg/dl (70-99) 169 mg/dl (70-99) 127 mg/dl (70-99) Test 12/05/17 05:46 12/05/17 07:18 12/05/17 11:31 Random Glucose 83 mg/dl (70-99) Bedside Glucose 77 mg/dl (70-99) 220 mg/dl (70-99) Laboratory Data (last 24hrs) Test 12/05/17 05:46 Anion Gap 8.0 mmol/L BUN/Creatinine Ratio 16.0 Blood Urea Nitrogen 44 mg/dl Creatinine 2.73 mg/dl Potassium Level 3.5 mmol/L Sodium Level 140 mmol/L White Blood Count 4.45 K/uL HbA1c Test 12/04/17 06:55 Hemoglobin A1c 11.7 % (4.5-5.6) H Recent Pertinent Medications Outpatient Anti-diabetic Regimen: * Lantus 48 units SQ qPM, Novolog 7 units SQ with breakfast and 14 units with lunch and dinner The patient is currently receiving: * Basal insulin: Lantus 25 units every 12 hours * Correctional Insulin: Novolog Correction per scale ACHS Goal Range: Low 110 mg/dL - High 150 mg/dL Correction Factor: 15 mg/dL/unit * Prandial insulin: Per carb ratio of 1 unit per 7 grams CHO consumed Assessment & Plan ASSESSMENT: * Willis is a 62 yr old T2DM male admitted with SOB, hyperglycemia, and acute on chronic kidney failure. Scr has improved from 3.62 to 2.73 mg/dL. * A1c of 11.7% indicates poor outpatient glycemic control. This value could be falsely elevated due to severe kidney impairment and chronic anemia. * Blood glucose control rapidly improved overnight. Fasting BSG was 77 mg/dL this morning (decreased from 313 mg/dL the previous day), therefore I held AM dose of Lantus. Of note, Willis has required much smaller doses of basal insulin on previous admissions. During an admission in June of this year, he required 10-15 units of Lantus a day. * I have scheduled a reduced dose of Lantus to be given around lunch time today. I will enter a Lantus dose per scale for this evening to ensure I am not underdosing the patient. I will attempt to transition him back to a once daily dose in the evening when appropriate. * No changes will be made to Novolog insulin parameters today. PLAN FOR INPATIENT GLYCEMIC CONTROL: * Basal insulin * Lantus 15 units SQ x1, then Lantus dose per scale: * 0 units for BSG less than 120 mg/dL * 10 units for BSG 120-200 mg/dL * 18 units for BSG greater than 200 mg/dL * Bolus Insulin * Novolog per scale ACHS or Q6hrs while NPO * Goal Range: Low 110 mg/dL - High 150 mg/dL * Correction Factor: 20 mg/dL/unit * Nutritional / Prandial insulin per carb ratio of 1 unit per 7 grams CHO consumed * Please note that the plan above was derived based on current level of insulin resistance and hospital stress. These recommendations are appropriate for inpatient admission only. Plan of care upon discharge will need to be reassessed to avoid potential outpatient hypo/hyperglycemia. Thank you.
--- NOTE | 2017-12-05 16:46 | Progress Note ---
Subjective Date of Service: Dec 05, 2017. Subjective Pt evaluation today including: conversation w/ patient, physical exam, lab review, review of studies, review of inpatient medication list Saw/examined the patient in room 406 He's much improved today; denies shortness of breath today States he has not been dizzy and has ambulated the hallways Kidney function improving Problem List Medical Problems: (1) Acute kidney injury Status: Acute (2) CHF (congestive heart failure) Status: Acute (3) CHF (congestive heart failure) Status: Acute (4) Diffuse abdominal pain Status: Acute (5) Dyspnea Status: Acute (6) Elevated troponin Status: Acute (7) Hyperglycemia Status: Acute (8) Precordial chest pain Status: Acute (9) Renal cyst Status: Acute (10) Shortness of breath Status: Acute (11) Shortness of breath Status: Acute (12) Shortness of breath Status: Acute (13) Tick bite Status: Acute (14) Weakness Status: Acute Review of Systems Constitutional: No fever, No chills Respiratory: No cough, No sputum, No shortness of breath Cardiac: No chest pain, No edema, No palpitations Abdomen: No pain, No nausea, No vomiting, No diarrhea Skin: + problem reported (lower extremity skin tears) Medications Current Inpatient Medications Medications (Trade) Dose Ordered Sig/Larry Route Start Time Stop Time Status Last Admin Dose Admin Acetaminophen (Tylenol Tab) 650 mg Q4H PRN PO 12/03/17 19:30 01/02/18 19:29 Insulin Aspart (novoLOG ASPART) SLIDING SCALE If C... ACHS SC 12/03/17 21:00 01/02/18 20:59 12/05/17 12:10 7 UNITS Glucose (Glucose 40% Gel) 15-30 GRAMS 15 GRAMS... UD PRN PO 12/03/17 19:30 01/02/18 19:29 Glucose (Glucose Chew Tab) 4-8 Tablets 4 Tabl... UD PRN PO 12/03/17 19:30 01/02/18 19:29 Dextrose (Dextrose 50% 50ML Syringe) 25-50ML 25ML FOR ... UD PRN IV 12/03/17 19:30 01/02/18 19:29 Glucagon (Glucagon Inj) 1 mg UD PRN SQ 12/03/17 19:30 01/02/18 19:29 Carbohydrates (Carbohydrates For Hypoglycemia) 15-30 GRAMS 15 grams if BSG 54-69... UD PRN PO 12/03/17 19:30 01/02/18 19:29 Amiodarone HCl (Cordarone Tab) 200 mg QAM PO 12/04/17 09:00 01/03/18 08:59 12/05/17 07:32 200 MG Aspirin (Ecotrin Tab) 81 mg QAM PO 12/04/17 09:00 01/03/18 08:59 12/05/17 07:33 81 MG Duloxetine HCl (Cymbalta Cap) 60 mg DAILY PO 12/04/17 09:00 01/03/18 08:59 12/05/17 07:34 60 MG Isosorbide Dinitrate (Isordil Tab) 20 mg TID@0700,1200,1700 PO 12/04/17 07:00 01/03/18 06:59 12/05/17 12:12 20 MG Metoprolol Succinate (Toprol Xl Tab) 50 mg BID PO 12/03/17 21:00 01/02/18 20:59 12/05/17 07:33 50 MG Pantoprazole Sodium (Protonix Tab) 40 mg QAM PO 12/04/17 09:00 01/03/18 08:59 12/05/17 07:33 40 MG Rosuvastatin Calcium (Crestor Tab) 40 mg HS PO 12/03/17 21:00 01/02/18 20:59 12/04/17 19:45 40 MG Warfarin Sodium (Coumadin Tab) 5 mg SuTuWeThSa@1600 PO 12/03/17 21:15 01/02/18 21:14 12/03/17 22:03 5 MG Warfarin Sodium (Coumadin Tab) 7.5 mg MoFr@1600 PO 12/04/17 16:00 01/03/18 15:59 12/04/17 17:49 7.5 MG Cholecalciferol (Vitamin D Tab) 2,000 inter.unit QAM PO 12/04/17 09:00 01/03/18 08:59 12/05/17 07:32 2,000 INTER.UNIT Miscellaneous Information (Order Awaiting Action) 1 ea QS N/A 12/04/17 08:00 01/03/18 07:59 Ipratropium [place] (Atrovent 0.02% 0.5MG/2.5ML Neb) 0.5 mg Q6R INH 12/04/17 03:00 01/03/18 02:59 12/05/17 14:19 0.5 MG Levalbuterol (Xopenex 1.25MG/ 0.5ML Neb) 1.25 mg Q6R INH 12/04/17 03:00 01/03/18 02:59 12/05/17 14:19 1.25 MG Miscellaneous Information (Consult Glycemic Management Pharmacy) 1 ea UD PRN N/A 12/04/17 16:33 01/03/18 16:32 Insulin Glargine (Lantus Solostar Pen) SEE PROTOCOL HS SC 12/05/17 21:00 12/05/17 23:59 Objective Vital Signs Date Time Temp Pulse Resp B/P (MAP) Pulse Ox O2 Delivery O2 Flow Rate FiO2 12/05/17 15:55 36.3 78 17 129/79 (96) 96 Room Air 12/05/17 14:21 64 18 98 Room Air 12/05/17 14:12 36.9 69 18 96 12/05/17 11:55 36.9 69 18 147/79 (101) 96 Room Air 12/05/17 08:00 96 Room Air 2.0 12/05/17 07:25 36.6 80 18 137/86 (103) 96 Room Air 12/05/17 07:15 78 18 96 Room Air 12/05/17 04:28 36.9 88 18 150/89 (109) 93 Nasal Cannula 2.0 12/05/17 00:00 95 Room Air 2.0 12/04/17 23:50 36.3 86 19 148/76 (100) 97 Room Air 12/04/17 19:49 73 18 95 Room Air 12/04/17 19:40 36.5 65 18 149/80 (103) 94 Room Air Physical Exam General Appearance: no apparent distress Respiratory/Chest: chest non-tender, lungs clear, normal breath sounds, no respiratory distress, no accessory muscle use Cardiovascular: regular rate, rhythm, no edema, + systolic murmur Extremities: no pedal edema Skin: + pertinent finding (healing skin excoriations - b/l LE) Laboratory Results Last 24 Hours Test 12/04/17 19:55 12/04/17 23:56 12/05/17 03:55 12/05/17 05:46 Bedside Glucose 277 mg/dl 169 mg/dl 127 mg/dl White Blood Count 4.45 K/uL Red Blood Count 4.28 M/uL Hemoglobin 10.9 g/dL Hematocrit 33.6 % Mean Corpuscular Volume 78.5 fL Mean Corpuscular Hemoglobin 25.5 pg Mean Corpuscular Hemoglobin Concent 32.4 g/dl RDW Standard Deviation 44.1 fL RDW Coefficient of Variation 15.4 % Platelet Count 112 K/uL Mean Platelet Volume 9.1 fL Prothrombin Time 21.5 SECONDS Prothromb Time International Ratio 2.1 Sodium Level 140 mmol/L Potassium Level 3.5 mmol/L Chloride Level 105 mmol/L Carbon Dioxide Level 27 mmol/L Anion Gap 8.0 mmol/L Blood Urea Nitrogen 44 mg/dl Creatinine 2.73 mg/dl Est Creatinine Clear Calc Drug Dose 33.0 ml/min Estimated GFR () 27.4 Estimated GFR (Non- 23.7 BUN/Creatinine Ratio 16.0 Random Glucose 83 mg/dl Calcium Level 8.1 mg/dl Magnesium Level 2.2 mg/dl Test 12/05/17 07:18 12/05/17 11:31 Bedside Glucose 77 mg/dl 220 mg/dl Assessment and Plan This is a 62 year old male with a past medical history of aortic stenosis, mild systolic CHF with EF around 40-45%, HTN, HLD, uncontrolled insulin dependent DM2 , CKD stage 3-4, A. fib on long-term anticoagulation, sick sinus syndrome s/p pacemaker, COPD, GERD, anemia - presents with shortness of breath and elevated blood sugars Acute Kidney Injury superimposed on CKD stage 3-4 Hyponatremia - resolved 12/05 - creatinine improving to 2.7 - monitor and avoid nephrotoxic agents when able 12/04 - possible underlying dehydration - baseline creat is 2.2, currently >3 - I'll continue the NS at 75mL/hr - monitor for overload - avoiding nephrotoxic agents whenever able Acute Shortness of Breath Moderate Aortic Stenosis 12/05 - no shortness of breath today - ambulate hallways, if clinically stable, will d/c on 12/06 12/04 - not hypoxic on admission - unsure of what the underlying cause is, though aortic stenosis is a possibility - patient does have a COPD diagnosis, though not wheezing on exam - currently not requiring oxygen, will do nebs as needed Insulin Dependent DM2 - uncontrolled, Ha1c is 11.7% - states he is compliant with his medications - currently on Lantus 25 units BID and sliding scale - will consult pharmacy glycemic control - will need new regimen for his insulin to have tighter control Chronic Systolic CHF - EF is around 40-45% - does not appear overloaded - holding Torsemide due to kidney function - continue b-effie, Isordil - using Isordil/Hydralazine combination in place of an VENKATA-I as outpatient, likely due to kidney function Paroxysmal A. Fib - continue b-effie and Amiodarone - Coumadin with goal INR of 2-3 Anemia of Chronic Disease Thrombocytopenia - H/H Stable - platelets stable stable 129 HTN - Continue beta-effie - holding hydralazine, Isordil; monitor BP HLD - Continue Crestor GERD - continue PPI DVT ppx - Coumadin FULL CODE
[2017-12-05] MEDS: WARFARIN SOD 5 MG TAB PO SCH (16:54)
[2017-12-05] MEDS ORDERED: INSULIN GLARGINE SOLOSTAR 100 UNITS/ML 3 ML PEN SC SCH (21:00)
[2017-12-05] MEDS: ROSUVASTATIN CALCIUM 20 MG TAB PO SCH (21:03)
[2017-12-06] MEDS: IPRATROPIUM BROMIDE NEB SOLN 0.02% 2.5 ML VIAL INH SCH ×4 (01:51→19:03)
[2017-12-06] MEDS: LEVALBUTEROL 1.25MG/0.5ML NEB INH SCH ×4 (01:51→19:03)
[2017-12-06 06:06] LABS: HEMATOCRIT 33.5 % (42-52); HEMOGLOBIN 11.1 g/dL (14.0-18.0); MEAN CELL VOLUME 78.8 fL (80-100); MEAN CORPUSCULAR HEMOGLOBIN 26.1 pg (25-34); MEAN CORPUSCULAR HGB CONC 33.1 g/dl (32-36); MEAN PLATELET VOLUME 9.3 fL (7.4-10.4); PLATELET COUNT 119 K/uL (130-400); RED CELL DISTRIBUTION WIDTH CV 15.6 % (11.5-14.5); WHITE BLOOD COUNT 4.29 K/uL (4.8-10.8)
[2017-12-06 06:16] LABS: INR 2.4 (0.9-1.1)
[2017-12-06 06:37] LABS: CALCIUM 8.7 mg/dl (8.5-10.1); CREATININE 2.33 mg/dl (0.60-1.40); POTASSIUM 3.8 mmol/L (3.5-5.1)
[2017-12-06] MEDS: ISOSORBIDE DINITRATE 10 MG TAB PO SCH ×3 (06:46→16:50)
[2017-12-06 07:00] VITALS: BP 157/89; PULSE 68; TEMP 37; O2SAT 97
[2017-12-06] MEDS: DULOXETINE HCL 60 MG CAP PO SCH (07:56)
[2017-12-06] MEDS: PANTOprazole SOD 40 MG TAB PO SCH (07:56)
[2017-12-06] MEDS: METOPROLOL SUCC 50MG EXT REL TAB PO SCH ×2 (07:56→20:31)
[2017-12-06] MEDS: ASPIRIN 81 MG ECTAB PO SCH (07:56)
[2017-12-06] MEDS: AMIODARONE 200 MG TAB PO SCH (07:57)
[2017-12-06] MEDS: CHOLECALCIFEROL 1000 INTER.UNIT TAB PO SCH (07:57)
[2017-12-06] MEDS ORDERED: ONDANSETRON INJ 2 MG/ML 2 ML VIAL IV STA (08:08)
[2017-12-06] MEDS ORDERED: ONDANSETRON INJ 2 MG/ML 2 ML VIAL IV PRN (08:15)
[2017-12-06] MEDS: INSULIN ASPART 100 UNITS/ML 3 ML PEN SC SCH ×4 (08:22→20:36)
[2017-12-06] MEDS: INSULIN GLARGINE SOLOSTAR 100 UNITS/ML 3 ML PEN SC SCH ×2 (08:22→20:37)
[2017-12-06] MEDS ORDERED: ALBUTEROL HFA 8 GM INHALER INH PRN (10:45)
--- NOTE | 2017-12-06 10:45 | Progress Note ---
Subjective Date of Service: Dec 06, 2017. Subjective Pt evaluation today including: conversation w/ patient, physical exam, lab review, review of studies, review of inpatient medication list Saw/examined the patient in room 406 c/o nausea/vomiting this AM feeling better after some Zofran Denies shortness of breath or dizziness today Problem List Medical Problems: (1) Acute kidney injury Status: Acute (2) CHF (congestive heart failure) Status: Acute (3) CHF (congestive heart failure) Status: Acute (4) Diffuse abdominal pain Status: Acute (5) Dyspnea Status: Acute (6) Elevated troponin Status: Acute (7) Hyperglycemia Status: Acute (8) Precordial chest pain Status: Acute (9) Renal cyst Status: Acute (10) Shortness of breath Status: Acute (11) Shortness of breath Status: Acute (12) Shortness of breath Status: Acute (13) Tick bite Status: Acute (14) Weakness Status: Acute Review of Systems Constitutional: No fever, No chills Respiratory: No cough, No sputum, No wheezing, No shortness of breath, No dyspnea on exertion Cardiac: No chest pain, No edema, No palpitations Abdomen: + nausea, + vomiting, No pain, No diarrhea, No constipation Neurologic: No weakness, No numbness/tingling, No vertigo, No balance problems Medications Current Inpatient Medications Medications (Trade) Dose Ordered Sig/Larry Route Start Time Stop Time Status Last Admin Dose Admin Acetaminophen (Tylenol Tab) 650 mg Q4H PRN PO 12/03/17 19:30 01/02/18 19:29 Insulin Aspart (novoLOG ASPART) SLIDING SCALE If C... ACHS SC 12/03/17 21:00 01/02/18 20:59 12/05/17 21:07 1 UNITS Glucose (Glucose 40% Gel) 15-30 GRAMS 15 GRAMS... UD PRN PO 12/03/17 19:30 01/02/18 19:29 Glucose (Glucose Chew Tab) 4-8 Tablets 4 Tabl... UD PRN PO 12/03/17 19:30 01/02/18 19:29 Dextrose (Dextrose 50% 50ML Syringe) 25-50ML 25ML FOR ... UD PRN IV 12/03/17 19:30 01/02/18 19:29 Glucagon (Glucagon Inj) 1 mg UD PRN SQ 12/03/17 19:30 01/02/18 19:29 Carbohydrates (Carbohydrates For Hypoglycemia) 15-30 GRAMS 15 grams if BSG 54-69... UD PRN PO 12/03/17 19:30 01/02/18 19:29 Amiodarone HCl (Cordarone Tab) 200 mg QAM PO 12/04/17 09:00 01/03/18 08:59 12/06/17 07:57 200 MG Aspirin (Ecotrin Tab) 81 mg QAM PO 12/04/17 09:00 01/03/18 08:59 12/06/17 07:56 81 MG Duloxetine HCl (Cymbalta Cap) 60 mg DAILY PO 12/04/17 09:00 01/03/18 08:59 12/06/17 07:56 60 MG Isosorbide Dinitrate (Isordil Tab) 20 mg TID@0700,1200,1700 PO 12/04/17 07:00 01/03/18 06:59 12/06/17 06:46 20 MG Metoprolol Succinate (Toprol Xl Tab) 50 mg BID PO 12/03/17 21:00 01/02/18 20:59 12/06/17 07:56 50 MG Pantoprazole Sodium (Protonix Tab) 40 mg QAM PO 12/04/17 09:00 01/03/18 08:59 12/06/17 07:56 40 MG Rosuvastatin Calcium (Crestor Tab) 40 mg HS PO 12/03/17 21:00 01/02/18 20:59 12/05/17 21:03 40 MG Warfarin Sodium (Coumadin Tab) 5 mg SuTuWeThSa@1600 PO 12/03/17 21:15 01/02/18 21:14 12/05/17 16:54 5 MG Warfarin Sodium (Coumadin Tab) 7.5 mg MoFr@1600 PO 12/04/17 16:00 01/03/18 15:59 12/04/17 17:49 7.5 MG Cholecalciferol (Vitamin D Tab) 2,000 inter.unit QAM PO 12/04/17 09:00 01/03/18 08:59 12/06/17 07:57 2,000 INTER.UNIT Miscellaneous Information (Order Awaiting Action) 1 ea QS N/A 12/04/17 08:00 01/03/18 07:59 Ipratropium [place] (Atrovent 0.02% 0.5MG/2.5ML Neb) 0.5 mg Q6R INH 12/04/17 03:00 01/03/18 02:59 12/05/17 18:56 0.5 MG Levalbuterol (Xopenex 1.25MG/ 0.5ML Neb) 1.25 mg Q6R INH 12/04/17 03:00 01/03/18 02:59 12/05/17 18:57 1.25 MG Miscellaneous Information (Consult Glycemic Management Pharmacy) 1 ea UD PRN N/A 12/04/17 16:33 01/03/18 16:32 Insulin Glargine (Lantus Solostar Pen) SEE PROTOCOL BID SC 12/06/17 08:00 01/05/18 07:59 12/06/17 08:22 10 UNITS Ondansetron HCl (Zofran Inj) 4 mg Q6H PRN IV 12/06/17 08:15 01/05/18 08:14 Objective Vital Signs Date Time Temp Pulse Resp B/P (MAP) Pulse Ox O2 Delivery O2 Flow Rate FiO2 12/06/17 10:00 Room Air 12/06/17 07:00 37.0 68 18 157/89 (111) 97 Room Air 12/05/17 22:48 36.8 62 20 147/77 (100) 96 Room Air 12/05/17 21:15 Room Air 12/05/17 18:59 64 16 94 Room Air 12/05/17 15:55 36.3 78 17 129/79 (96) 96 Room Air 12/05/17 14:21 64 18 98 Room Air 12/05/17 14:12 36.9 69 18 96 12/05/17 11:55 36.9 69 18 147/79 (101) 96 Room Air Physical Exam General Appearance: no apparent distress Respiratory/Chest: lungs clear, normal breath sounds, no respiratory distress, no accessory muscle use Cardiovascular: regular rate, rhythm, no edema, + systolic murmur Extremities: normal inspection, no pedal edema Neurologic/Psychiatric: no motor/sensory deficits, alert, normal mood/affect Laboratory Results Last 24 Hours Test 12/05/17 11:31 12/05/17 16:51 12/05/17 20:11 12/06/17 05:21 Bedside Glucose 220 mg/dl 210 mg/dl 161 mg/dl White Blood Count 4.29 K/uL Red Blood Count 4.25 M/uL Hemoglobin 11.1 g/dL Hematocrit 33.5 % Mean Corpuscular Volume 78.8 fL Mean Corpuscular Hemoglobin 26.1 pg Mean Corpuscular Hemoglobin Concent 33.1 g/dl RDW Standard Deviation 45.0 fL RDW Coefficient of Variation 15.6 % Platelet Count 119 K/uL Mean Platelet Volume 9.3 fL Prothrombin Time 24.9 SECONDS Prothromb Time International Ratio 2.4 Sodium Level 139 mmol/L Potassium Level 3.8 mmol/L Chloride Level 106 mmol/L Carbon Dioxide Level 25 mmol/L Anion Gap 8.0 mmol/L Blood Urea Nitrogen 34 mg/dl Creatinine 2.33 mg/dl Est Creatinine Clear Calc Drug Dose 38.7 ml/min Estimated GFR () 33.2 Estimated GFR (Non- 28.7 BUN/Creatinine Ratio 14.5 Random Glucose 86 mg/dl Calcium Level 8.7 mg/dl Magnesium Level 2.3 mg/dl Test 12/06/17 07:26 Bedside Glucose 90 mg/dl Assessment and Plan This is a 62 year old male with a past medical history of aortic stenosis, mild systolic CHF with EF around 40-45%, HTN, HLD, uncontrolled insulin dependent DM2 , CKD stage 3-4, A. fib on long-term anticoagulation, sick sinus syndrome s/p pacemaker, COPD, GERD, anemia - presents with shortness of breath and elevated blood sugars Acute Kidney Injury superimposed on CKD stage 3-4 Hyponatremia - resolved 12/06 - creatinine down to 2.3 - will restart some of his home medications, but watching blood pressure - restart diuretics 12/05 - creatinine improving to 2.7 - monitor and avoid nephrotoxic agents when able 12/04 - possible underlying dehydration - baseline creat is 2.2, currently >3 - I'll continue the NS at 75mL/hr - monitor for overload - avoiding nephrotoxic agents whenever able Acute Shortness of Breath Moderate Aortic Stenosis 12/06 - restart diuretics - ambulate in hallway 12/05 - no shortness of breath today - ambulate hallways, if clinically stable, will d/c on 12/06 12/04 - not hypoxic on admission - unsure of what the underlying cause is, though aortic stenosis is a possibility - patient does have a COPD diagnosis, though not wheezing on exam - currently not requiring oxygen, will do nebs as needed Insulin Dependent DM2 - uncontrolled, Ha1c is 11.7% - states he is compliant with his medications - currently on Lantus 25 units BID and sliding scale - will consult pharmacy glycemic control - will need new regimen for his insulin to have tighter control Chronic Systolic CHF - EF is around 40-45% - does not appear overloaded - restart Torsemide maintenance dose - continue b-effie, Isordil - using Isordil/Hydralazine combination in place of an VENKATA-I as outpatient, likely due to kidney function Paroxysmal A. Fib - continue b-effie and Amiodarone - Coumadin with goal INR of 2-3 Anemia of Chronic Disease Thrombocytopenia - H/H Stable - platelets stable stable 129 HTN - Continue beta-effie; restart amlodipine - holding hydralazine, Isordil; monitor BP HLD - Continue Crestor GERD - continue PPI DVT ppx - Coumadin FULL CODE
[2017-12-06 12:38] VITALS: BP 155/80
[2017-12-06 15:05] VITALS: PULSE 64; O2SAT 94
--- NOTE | 2017-12-06 15:37 | Pharmacy Progress Note ---
Pharmacy Glycemic Short Note 2 Date of Service Dec 06, 2017. OUTPATIENT ANTIDIABETIC REGIMEN: * Lantus 48 units SQ qPM, Novolog 7 units SQ with breakfast and 14 units with lunch and dinner Item Value Date Time Bedside Glucose 127 mg/dl H 12/05/17 0355 Bedside Glucose 77 mg/dl 12/05/17 0718 Bedside Glucose 220 mg/dl H 12/05/17 1131 Bedside Glucose 210 mg/dl H 12/05/17 1651 Bedside Glucose 161 mg/dl H 12/05/172010 Bedside Glucose 90 mg/dl 12/06/17 07 Bedside Glucose 73 mg/dl 12/06/17 1124 ASSESSMENT: 12/06/17 * Willis received a total of 40 units of insulin yesterday with majority of BSGs being above goal range. * Fasting BSG of 90 mg/dL is at goal (improved from 77 mg/dL on 12/05). Lunch BSG is below goal despite no Novolog coverage this AM. This indicates accumulation of basal insulin, therefore I will further decrease Lantus dose today. * Patient is consuming little carbohydrates today, however his prandial coverage was inadequate yesterday. I will slightly tighten carb ratio. 12/05/17 * Willis is a 62 yr old T2DM male admitted with SOB, hyperglycemia, and acute on chronic kidney failure. Scr has improved from 3.62 to 2.73 mg/dL. * A1c of 11.7% indicates poor outpatient glycemic control. This value could be falsely elevated due to severe kidney impairment and chronic anemia. * Blood glucose control rapidly improved overnight. Fasting BSG was 77 mg/dL this morning (decreased from 313 mg/dL the previous day), therefore I held AM dose of Lantus. Of note, Willis has required much smaller doses of basal insulin on previous admissions. During an admission in June of this year, he required 10-15 units of Lantus a day. * I have scheduled a reduced dose of Lantus to be given around lunch time today. I will enter a Lantus dose per scale for this evening to ensure I am not underdosing the patient. I will attempt to transition him back to a once daily dose in the evening when appropriate. * No changes will be made to Novolog insulin parameters today. PLAN FOR INPATIENT GLYCEMIC CONTROL: * Basal insulin * Lantus SQ BID per scale: * 0 units for BSG less than 140 mg/dL * 10 units for BSG 140-200 mg/dL * 15 units for BSG greater than 200 mg/dL * Bolus Insulin - tighten carb coverage * Novolog per scale ACHS or Q6hrs while NPO * Goal Range: Low 110 mg/dL - High 150 mg/dL * Correction Factor: 20 mg/dL/unit * Nutritional / Prandial insulin per carb ratio of 1 unit per 6 grams CHO consumed
[2017-12-06 15:54] VITALS: BP 134/76; PULSE 62; TEMP 36.7; O2SAT 91
[2017-12-06] MEDS: WARFARIN SOD 5 MG TAB PO SCH (16:50)
[2017-12-06 19:05] VITALS: PULSE 69; O2SAT 96
[2017-12-06] MEDS: ROSUVASTATIN CALCIUM 20 MG TAB PO SCH (20:31)
[2017-12-06 23:01] VITALS: BP 143/75; PULSE 71; TEMP 37.1; O2SAT 94
[2017-12-07] MEDS: IPRATROPIUM BROMIDE NEB SOLN 0.02% 2.5 ML VIAL INH SCH ×2 (02:02→07:21)
[2017-12-07] MEDS: LEVALBUTEROL 1.25MG/0.5ML NEB INH SCH ×2 (02:02→07:12)
[2017-12-07 06:20] LABS: HEMATOCRIT 34.2 % (42-52); MEAN CELL VOLUME 79.4 fL (80-100); MEAN CORPUSCULAR HEMOGLOBIN 25.5 pg (25-34); MEAN CORPUSCULAR HGB CONC 32.2 g/dl (32-36); MEAN PLATELET VOLUME 9.1 fL (7.4-10.4); PLATELET COUNT 113 K/uL (130-400); RED CELL DISTRIBUTION WIDTH CV 15.6 % (11.5-14.5); RED CELL DISTRIBUTION WIDTH SD 45.2 fL (36.4-46.3); WHITE BLOOD COUNT 4.34 K/uL (4.8-10.8)
[2017-12-07] MEDS: INSULIN ASPART 100 UNITS/ML 3 ML PEN SC SCH (06:30)
[2017-12-07 06:32] LABS: INR 2.4 (0.9-1.1)
[2017-12-07 07:03] LABS: CALCIUM 8.6 mg/dl (8.5-10.1); CREATININE 2.39 mg/dl (0.60-1.40); PHOSPHORUS 2.7 mg/dl (2.5-4.9)
[2017-12-07 07:07] VITALS: BP 161/77; PULSE 66; TEMP 36.9; O2SAT 92
[2017-12-07 08:00] VITALS: O2SAT 92
[2017-12-07] MEDS ORDERED: AMLODIPINE BESYLATE 5 MG TAB PO SCH (08:00)
[2017-12-07] MEDS ORDERED: TORSEMIDE 20 MG TAB PO SCH (08:00)
[2017-12-07] MEDS: INSULIN GLARGINE SOLOSTAR 100 UNITS/ML 3 ML PEN SC SCH (08:00)
[2017-12-07] MEDS: ISOSORBIDE DINITRATE 10 MG TAB PO SCH (08:25)
[2017-12-07] MEDS: METOPROLOL SUCC 50MG EXT REL TAB PO SCH (08:25)
[2017-12-07] MEDS: DULOXETINE HCL 60 MG CAP PO SCH (08:26)
[2017-12-07] MEDS: AMIODARONE 200 MG TAB PO SCH (08:26)
[2017-12-07] MEDS: CHOLECALCIFEROL 1000 INTER.UNIT TAB PO SCH (08:26)
[2017-12-07] MEDS: PANTOprazole SOD 40 MG TAB PO SCH (08:26)
[2017-12-07] MEDS: ASPIRIN 81 MG ECTAB PO SCH (08:27)
--- NOTE | 2017-12-07 12:35 | Progress Note ---
Subjective Date of Service: Dec 07, 2017. Subjective Pt evaluation today including: conversation w/ patient, physical exam, lab review, review of studies, review of inpatient medication list Saw/examined the patient in room 406 He's doing well, his breathing is improved No longer nauseous or vomiting Not dizzy and has ambulated well Problem List Medical Problems: (1) Acute kidney injury Status: Acute (2) CHF (congestive heart failure) Status: Acute (3) CHF (congestive heart failure) Status: Acute (4) Diffuse abdominal pain Status: Acute (5) Dyspnea Status: Acute (6) Elevated troponin Status: Acute (7) Hyperglycemia Status: Acute (8) Precordial chest pain Status: Acute (9) Renal cyst Status: Acute (10) Shortness of breath Status: Acute (11) Shortness of breath Status: Acute (12) Shortness of breath Status: Acute (13) Tick bite Status: Acute (14) Weakness Status: Acute Review of Systems Constitutional: No fever, No chills Respiratory: No shortness of breath Cardiac: No chest pain, No edema, No palpitations Abdomen: No pain, No nausea, No vomiting, No diarrhea, No constipation, No GI bleeding Medications Current Inpatient Medications Medications (Trade) Dose Ordered Sig/Larry Route Start Time Stop Time Status Last Admin Dose Admin Acetaminophen (Tylenol Tab) 650 mg Q4H PRN PO 12/03/17 19:30 01/02/18 19:29 Insulin Aspart (novoLOG ASPART) SLIDING SCALE If C... ACHS SC 12/03/17 21:00 01/02/18 20:59 12/06/17 20:36 5 UNITS Glucose (Glucose 40% Gel) 15-30 GRAMS 15 GRAMS... UD PRN PO 12/03/17 19:30 01/02/18 19:29 Glucose (Glucose Chew Tab) 4-8 Tablets 4 Tabl... UD PRN PO 12/03/17 19:30 01/02/18 19:29 Dextrose (Dextrose 50% 50ML Syringe) 25-50ML 25ML FOR ... UD PRN IV 12/03/17 19:30 01/02/18 19:29 Glucagon (Glucagon Inj) 1 mg UD PRN SQ 12/03/17 19:30 01/02/18 19:29 Carbohydrates (Carbohydrates For Hypoglycemia) 15-30 GRAMS 15 grams if BSG 54-69... UD PRN PO 12/03/17 19:30 01/02/18 19:29 Amiodarone HCl (Cordarone Tab) 200 mg QAM PO 12/04/17 09:00 01/03/18 08:59 12/07/17 08:26 200 MG Aspirin (Ecotrin Tab) 81 mg QAM PO 12/04/17 09:00 01/03/18 08:59 12/07/17 08:27 81 MG Duloxetine HCl (Cymbalta Cap) 60 mg DAILY PO 12/04/17 09:00 01/03/18 08:59 12/07/17 08:26 60 MG Isosorbide Dinitrate (Isordil Tab) 20 mg TID@0700,1200,1700 PO 12/04/17 07:00 01/03/18 06:59 12/07/17 08:25 20 MG Metoprolol Succinate (Toprol Xl Tab) 50 mg BID PO 12/03/17 21:00 01/02/18 20:59 12/07/17 08:25 50 MG Pantoprazole Sodium (Protonix Tab) 40 mg QAM PO 12/04/17 09:00 01/03/18 08:59 12/07/17 08:26 40 MG Rosuvastatin Calcium (Crestor Tab) 40 mg HS PO 12/03/17 21:00 01/02/18 20:59 12/06/17 20:31 40 MG Warfarin Sodium (Coumadin Tab) 5 mg SuTuWeThSa@1600 PO 12/03/17 21:15 01/02/18 21:14 12/06/17 16:50 5 MG Warfarin Sodium (Coumadin Tab) 7.5 mg MoFr@1600 PO 12/04/17 16:00 01/03/18 15:59 12/04/17 17:49 7.5 MG Cholecalciferol (Vitamin D Tab) 2,000 inter.unit QAM PO 12/04/17 09:00 01/03/18 08:59 12/07/17 08:26 2,000 INTER.UNIT Miscellaneous Information (Order Awaiting Action) 1 ea QS N/A 12/04/17 08:00 01/03/18 07:59 Ipratropium Schroeder (Atrovent 0.02% 0.5MG/2.5ML Neb) 0.5 mg Q6R INH 12/04/17 03:00 01/03/18 02:59 12/06/17 19:03 0.5 MG Levalbuterol (Xopenex 1.25MG/ 0.5ML Neb) 1.25 mg Q6R INH 12/04/17 03:00 01/03/18 02:59 12/06/17 19:03 1.25 MG Miscellaneous Information (Consult Glycemic Management Pharmacy) 1 ea UD PRN N/A 12/04/17 16:33 01/03/18 16:32 Insulin Glargine (Lantus Solostar Pen) SEE PROTOCOL BID SC 12/06/17 08:00 01/05/18 07:59 12/06/17 20:37 15 UNITS Ondansetron HCl (Zofran Inj) 4 mg Q6H PRN IV 12/06/17 08:15 01/05/18 08:14 Albuterol (Ventolin Hfa Inhaler) 2 puffs Q4H PRN INH 12/06/17 10:45 01/05/18 10:44 Amlodipine Besylate (Norvasc Tab) 5 mg DAILY PO 12/07/17 08:00 01/06/18 07:59 12/07/17 08:28 5 MG Torsemide (Demadex Tab) 10 mg QAM PO 12/07/17 08:00 01/06/18 07:59 12/07/17 08:26 10 MG Objective Vital Signs Date Time Temp Pulse Resp B/P (MAP) Pulse Ox O2 Delivery O2 Flow Rate FiO2 12/07/17 08:00 92 Room Air 12/07/17 07:07 36.9 66 18 161/77 (105) 92 Room Air 12/06/17 23:01 37.1 71 18 143/75 (97) 94 Room Air 12/06/17 20:45 Room Air 12/06/17 19:05 69 16 96 Room Air 12/06/17 15:54 36.7 62 18 134/76 (95) 91 Room Air 12/06/17 15:05 64 16 94 Room Air 12/06/17 12:38 155/80 (105) Physical Exam General Appearance: no apparent distress Respiratory/Chest: chest non-tender, lungs clear, normal breath sounds, no respiratory distress, no accessory muscle use Cardiovascular: regular rate, rhythm, no edema, no gallop, no JVD, no murmur Abdomen: normal bowel sounds, non tender, soft Laboratory Results Last 24 Hours Test 12/06/17 16:53 12/06/17 20:14 12/07/17 05:59 12/07/17 07:22 Bedside Glucose 87 mg/dl 247 mg/dl 84 mg/dl White Blood Count 4.34 K/uL Red Blood Count 4.31 M/uL Hemoglobin 11.0 g/dL Hematocrit 34.2 % Mean Corpuscular Volume 79.4 fL Mean Corpuscular Hemoglobin 25.5 pg Mean Corpuscular Hemoglobin Concent 32.2 g/dl RDW Standard Deviation 45.2 fL RDW Coefficient of Variation 15.6 % Platelet Count 113 K/uL Mean Platelet Volume 9.1 fL Prothrombin Time 24.4 SECONDS Prothromb Time International Ratio 2.4 Sodium Level 139 mmol/L Potassium Level 4.0 mmol/L Chloride Level 106 mmol/L Carbon Dioxide Level 26 mmol/L Anion Gap 7.0 mmol/L Blood Urea Nitrogen 29 mg/dl Creatinine 2.39 mg/dl Est Creatinine Clear Calc Drug Dose 37.7 ml/min Estimated GFR () 32.2 Estimated GFR (Non- 27.8 BUN/Creatinine Ratio 12.3 Random Glucose 80 mg/dl Calcium Level 8.6 mg/dl Phosphorus Level 2.7 mg/dl Magnesium Level 2.2 mg/dl Test 12/07/17 11:11 Bedside Glucose 171 mg/dl Assessment and Plan This is a 62 year old male with a past medical history of aortic stenosis, mild systolic CHF with EF around 40-45%, HTN, HLD, uncontrolled insulin dependent DM2 , CKD stage 3-4, A. fib on long-term anticoagulation, sick sinus syndrome s/p pacemaker, COPD, GERD, anemia - presents with shortness of breath and elevated blood sugars Acute Kidney Injury superimposed on CKD stage 3-4 Hyponatremia - resolved 12/07 - creatinine improved - restarting home medications on discharge 12/06 - creatinine down to 2.3 - will restart some of his home medications, but watching blood pressure - restart diuretics 12/05 - creatinine improving to 2.7 - monitor and avoid nephrotoxic agents when able 12/04 - possible underlying dehydration - baseline creat is 2.2, currently >3 - I'll continue the NS at 75mL/hr - monitor for overload - avoiding nephrotoxic agents whenever able Acute Shortness of Breath Moderate Aortic Stenosis 12/06 - restart diuretics - ambulate in hallway 12/05 - no shortness of breath today - ambulate hallways, if clinically stable, will d/c on 12/06 12/04 - not hypoxic on admission - unsure of what the underlying cause is, though aortic stenosis is a possibility - patient does have a COPD diagnosis, though not wheezing on exam - currently not requiring oxygen, will do nebs as needed Insulin Dependent DM2 - uncontrolled, Ha1c is 11.7% - states he is compliant with his medications - currently on Lantus 25 units BID and sliding scale - will consult pharmacy glycemic control - will need new regimen for his insulin to have tighter control Chronic Systolic CHF - EF is around 40-45% - does not appear overloaded - restart Torsemide maintenance dose - continue b-effie, Isordil - using Isordil/Hydralazine combination in place of an VENKATA-I as outpatient, likely due to kidney function Paroxysmal A. Fib - continue b-effie and Amiodarone - Coumadin with goal INR of 2-3 Anemia of Chronic Disease Thrombocytopenia - H/H Stable - platelets stable stable 129 HTN - Continue beta-effie; restart amlodipine - holding hydralazine, Isordil; monitor BP HLD - Continue Crestor GERD - continue PPI DVT ppx - Coumadin FULL CODE
[2017-12-07] MEDS ORDERED: NVLGI/PEN SQ (12:44)
[2017-12-07] MEDS ORDERED: INSDGIPEN SQ (12:44)
[2017-12-07] MEDS ORDERED: HYDR-2977 PO (12:44)
--- NOTE | 2017-12-07 12:50 | Discharge Instructions ---
Discharge Instructions Date of Service Dec 07, 2017. Admission Reason for Admission: Acute On Chronic Renal Failure Discharge Discharge Diagnosis / Problem: Dehydration, Uncontrolled Diabetes Discharge Goals Goal(s): Decrease discomfort, Improve function, Diagnostic testing, Therapeutic intervention Activity Recommendations Activity Limitations: resume your previous activity . Instructions / Follow-Up Instructions / Follow-Up Please follow up with Dr. Mirlande Henning (covering for Dr. Butts) on December 11 at 10:45AM * Your diabetes is significantly uncontrolled. Please stay compliant with your insulin. Your dose of insulin has changed. * Please stay well hydrated. * You should have a podiatry and ophthalmology check-up as an outpatient. Current Hospital Diet Patient's current hospital diet: AHA Diet (Heart Healthy), Diabetes Type 2 Diet , Low Sodium Diet (2gm Na) Discharge Diet Recommended Diet: AHA Diet (Heart Healthy), Diabetes Type 2 Diet Pending Studies Studies pending at discharge: no Laboratory Results Hemoglobin A1c Test 12/04/17 06:55 Range/Units Estimated Average Glucose 289 mg/dl Hemoglobin A1c 11.7 H 4.5-5.6 % Medical Emergencies . Who to Call and When: Medical Emergencies: If at any time you feel your situation is an emergency, please call 911 immediately. . Non-Emergent Contact Non-Emergency issues call your: Primary Care Provider . . "Provider Documentation" section prepared by Jasbir Rose. .
--- NOTE | 2017-12-07 12:53 | Discharge Summary ---
Discharge Summary Date of Service Dec 07, 2017. Discharge Summary Admission Date: Dec 03, 2017 at 19:33 Discharge Date: Dec 07, 2017 Discharge Disposition: Home Principal Diagnosis: Acute Kidney Injury superimposed on CKD stage 3-4 Hyponatremia - resolved Acute Shortness of Breath Moderate Aortic Stenosis Uncontrolled, Insulin Dependent DM2 Chronic Systolic CHF Paroxysmal A. Fib on Long-Term Anticoagulation Anemia of Chronic Disease Thrombocytopenia HTN HLD GERD Medication Reconciliation Changed Medications: Hydralazine HCl (Hydralazine HCl) 10 Mg Tab 10 MG PO TID for 30 Days, #90 TABS (Changed from: Hydralazine Hcl (Apresoline) 25 Mg Tab 25 Mg PO TID) Insulin Aspart (Novolog Flexpen) 100 Units/Ml Inj 7 UNITS SQ TIDM for 30 Days, #5 PEN (Changed from: QAM) Insulin Glargine (Lantus Solostar) 100 Unit/Ml Inj 20 UNITS SQ PM for 30 Days, #5 PEN (Changed from: 48 UNITS) Continued Medications: Albuterol (Ventolin Hfa) 60 Puffs/5400 Mcg Aers 2 PUFFS INH Q4H PRN for SOB/Wheezing Amiodarone Hcl (Cordarone) 200 Mg Tab 200 MG PO QAM, TAB Amlodipine (Norvasc) 5 Mg Tab 5 MG PO DAILY, TAB Aspirin (Aspirin Ec) 81 Mg Tab 81 MG PO QAM Cholecalciferol (Vitamin D3) 2,000 Unit Tab 2000 INTER.UNIT PO QAM Duloxetine Hcl (Cymbalta) 60 Mg Cap 60 MG PO DAILY, CAP Fluticasone Furoate-Vilanterol (Breo Ellipta) 1 Inh Inh 100 MCG INH DAILY Ipratropium-Albuterol (Duoneb) 3 Ml Nebu 1 TREATMENT INH QID PRN for SOB/Wheezing, INHA Isosorbide Dinitrate (Isordil) 10 Mg Tab 20 MG PO TID, TAB Metoprolol Succinate (Toprol Xl) 50 Mg Tabcr 50 MG PO BID, #30 TAB Pantoprazole (Protonix) 40 Mg Tab 40 MG PO QAM Rosuvastatin Calcium (Crestor) 40 Mg Tab 40 MG PO HS, TAB Torsemide (Demadex) 20 Mg Tab 10 MG PO QAM, TAB Warfarin Sodium (Coumadin) 5 Mg Tab 5-7.5 MG PO DAILY, TAB pt takes 7.5mg of warfarin Mon and Fri and 5mg for the rest of the week. Discontinued Medications: Insulin Aspart (Novolog Flexpen) 100 Units/Ml Inj 14 SQ BID Admission Information HPI (per Admitting provider): This is a 62 year old male with significant PMH of S-CHF EF 44%, Moderate , HTN, HLD, uncontrolled T2DM last A1C 8.9 09/09/17, CKD stage III-IV, Afib, fdc anticoagulation with Coumadin, Anemia of chronic disease, Pacer/AICD, COPD/ Asthma, GERD who presents to [facility] secondary to weakness , dizziness, hyperglycemia, shortness of breath x 2-3 days. Family is at bedside, notes symptoms have been ongoing for the past 2-3 years; however over the past 2-3 days have significantly worsened. He complains of dizziness described as a spinning sensation, loss of balance, sweats, generalized weakness , elevated blood sugar, TESFAYE, productive cough clear sputum, occasional wheezing. Last fall was 2-3 days ago without injury. He denies documented fever, chills, presyncopal symptoms, chest pain, shortness breath at rest, palpitations, hemoptysis, nausea, vomiting, diarrhea, pain, change in bowel or bladder habits. Appetite is normal for him, feels he is drinking well. elicits does not drink enough fluid. Has not tried anything OTC. Has used nebulizer treatments 2-3 times daily for the past few days which does improve shortness of breath; however symptoms shortly return. Recently seen at beginning of month by diaper folder Dr. Graves, simonr interrogated. Family notes blood sugars average 120s-130s, he checks blood sugar once daily, is compliant with insulin regimen. This morning initial blood sugar was 70 and by afternoon was almost 500. In ED patient was noted to have elevation in BUN and creatinine at 63 and 3.81 respectively, hyperglycemic 494, BNP is 8244, lactic acid 1.5, INR 1.9, H&H stable 11.7/35.0, platelet 129, WBC 4.3, sodium 130, potassium 4.4, beta hydroxybutyrate acid 0.70, TSH 2.3. CT head was negative for any acute abnormalities but did show chronic age-related changes. Chest x- ray was negative for any cardiopulmonary disease no overt CHF noted. He was noted to be hypotensive in ED abd on O2 via nasal cannula. He uses O2 at home at . Patient appears to have acute on chronic CKD with hypotension as well as mild exacerbation of Asthma/COPD. Physical Exam (per Admitting): General Appearance: + mild distress, + obese, + pertinent finding (Drowsy male, answers questions appropriately, Appears older than age, poorly groomed) Head: normocephalic, atraumatic Eyes: normal inspection, sclerae normal, + pertinent finding (excessive facial hair) ENT: normal ENT inspection, hearing grossly normal, + pertinent finding ( mucous membranes dry) Neck: supple, no adenopathy, thyroid normal, no JVD, no carotid bruits Respiratory/Chest: chest non-tender, lungs clear, normal breath sounds, no respiratory distress, no accessory muscle use, + pertinent finding (on O2 via NC 2 L) Cardiovascular: no edema, no gallop, no JVD, + systolic murmur (2/6, heard throughout, best RUSB), + irregularly irregular (rate controlled), + abnormal peripheral pulses (+1 b/l pedal pulses) Abdomen/GI: normal bowel sounds, non tender, soft, + distended (secondary to obesity) Back: normal inspection, no muscle spasm, normal range of motion Extremities/Musculoskelatal: normal inspection, no calf tenderness, normal capillary refill, no pedal edema Neurologic/Psych: no motor/sensory deficits, alert, normal mood/affect, oriented x 3 Skin: normal color, warm/dry, + rash (b/l excoriations to anterior pretibial surfaces) Hospital Course This is a 62 year old male with a past medical history of aortic stenosis, mild systolic CHF with EF around 40-45%, HTN, HLD, uncontrolled insulin dependent DM2 , CKD stage 3-4, A. fib on long-term anticoagulation, sick sinus syndrome s/p pacemaker, COPD, GERD, anemia - presents with shortness of breath and elevated blood sugars Acute Kidney Injury superimposed on CKD stage 3-4 Hyponatremia - resolved 12/07 - creatinine improved - restarting home medications on discharge 12/06 - creatinine down to 2.3 - will restart some of his home medications, but watching blood pressure - restart diuretics 12/05 - creatinine improving to 2.7 - monitor and avoid nephrotoxic agents when able 12/04 - possible underlying dehydration - baseline creat is 2.2, currently >3 - I'll continue the NS at 75mL/hr - monitor for overload - avoiding nephrotoxic agents whenever able Acute Shortness of Breath Moderate Aortic Stenosis 12/06 - restart diuretics - ambulate in hallway 12/05 - no shortness of breath today - ambulate hallways, if clinically stable, will d/c on 12/06 12/04 - not hypoxic on admission - unsure of what the underlying cause is, though aortic stenosis is a possibility - patient does have a COPD diagnosis, though not wheezing on exam - currently not requiring oxygen, will do nebs as needed Insulin Dependent DM2 - uncontrolled, Ha1c is 11.7% - states he is compliant with his medications - currently on Lantus 25 units BID and sliding scale - will consult pharmacy glycemic control - will need new regimen for his insulin to have tighter control Chronic Systolic CHF - EF is around 40-45% - does not appear overloaded - restart Torsemide maintenance dose - continue b-effie, Isordil - using Isordil/Hydralazine combination in place of an VENKATA-I as outpatient, likely due to kidney function Paroxysmal A. Fib - continue b-effie and Amiodarone - Coumadin with goal INR of 2-3 Anemia of Chronic Disease Thrombocytopenia - H/H Stable - platelets stable stable 129 HTN - Continue beta-effie; restart amlodipine - holding hydralazine, Isordil; monitor BP HLD - Continue Crestor GERD - continue PPI DVT ppx - Coumadin FULL CODE Total time spent on discharge = 50 minutes This includes examination of the patient, discharge planning, medication reconciliation, and communication with other providers. Discharge Instructions Please follow up with Dr. Mirlande Henning (covering for Dr. Butts) on December 11 at 10:45AM * Your diabetes is significantly uncontrolled. Please stay compliant with your insulin. Your dose of insulin has changed. * Please stay well hydrated. * You should have a podiatry and ophthalmology check-up as an outpatient.
[2017-12-07 13:04] VITALS: BP 161/77; PULSE 66; TEMP 36.9; O2SAT 92
[2017-12-07] MEDS ORDERED: INSU100I2 SQ (13:31)
== END 2017-12-07 13:35 | disposition home or self-care (01) | DRG 682 ==
LOC: EDBD 16:45 → C.EDB 16:46 → C.2T 19:33 → ENRESERV 19:56 → C.4E 12-05 15:25
PROVIDERS: ADMIT Internal Medicine; ATTEND Family Medicine
DX: N17.9 Acute kidney failure, unspecified (principal); J96.01 Acute respiratory failure with hypoxia; I13.0 Hypertensive heart and chronic kidney disease with heart failure and stage 1 through stage 4 chronic kidney disease, or unspecified chronic kidney disease; E87.1 Hypo-osmolality and hyponatremia; J44.1 Chronic obstructive pulmonary disease with (acute) exacerbation; I50.22 Chronic systolic (congestive) heart failure; E11.22 Type 2 diabetes mellitus with diabetic chronic kidney disease; N18.4 Chronic kidney disease, stage 4 (severe); I48.0 Paroxysmal atrial fibrillation; I25.10 Atherosclerotic heart disease of native coronary artery without angina pectoris; E78.5 Hyperlipidemia, unspecified; E11.65 Type 2 diabetes mellitus with hyperglycemia; I35.0 Nonrheumatic aortic (valve) stenosis; E86.0 Dehydration; K21.9 Gastro-esophageal reflux disease without esophagitis; D63.8 Anemia in other chronic diseases classified elsewhere; Z79.01 Long term (current) use of anticoagulants; Z79.4 Long term (current) use of insulin; Z79.82 Long term (current) use of aspirin; Z79.899 Other long term (current) drug therapy

== ENCOUNTER 2018-05-14 16:24 | Observation (INO) ==
[2018-05-14 17:01] LABS: Basophils # (auto) 0.01 K/uL (0-0.2); Basophils % (auto) 0.2 %; Eosinophils # (auto) 0.12 K/uL (0-0.5); Eosinophils % (auto) 2.4 %; Hematocrit (blood only) 36.1 % (42-52); Hemoglobin 11.8 g/dL (14.0-18.0); Immature Granulocytes # (auto) 0.01 K/uL (0.00-0.02); Immature Granulocytes % (auto) 0.2 %; Lymphocytes # (auto) 0.72 K/uL (1.2-3.4); Lymphocytes % (auto) 14.6 %; Mean Corpuscular Hgb Conc 32.7 g/dL (32-36); Mean Platelet Volume 9.6 fL (7.4-10.4); Monocytes # (auto) 0.64 K/uL (0.11-0.59); Neutrophils # (auto) 3.43 K/uL (1.4-6.5); Neutrophils % (auto) 69.6 %; Platelet Count 134 K/uL (130-400); RDW Coefficient of Variation 13.7 % (11.5-14.5); RDW Standard Deviation 41.5 fL (36.4-46.3); White Blood Count 4.93 K/uL (4.8-10.8)
[2018-05-14 17:23] LABS: Albumin Level 3.3 gm/dl (3.4-5.0); BUN Creatinine Ratio 15.8 (10-20); Calcium 9.4 mg/dl (8.5-10.1); Creatinine Clr Calc Pharmacy 24.8 ml/min; Est GFR (African American) 19.8; Est GFR (Non-African American) 17.1; Magnesium 2.3 mg/dl (1.8-2.4); Potassium 4.1 mmol/L (3.5-5.1)
[2018-05-14 17:33] LABS: Albumin Globulin Ratio 0.9 (0.9-2); Bilirubin,Total 0.5 mg/dl (0.2-1); Globulin 3.5 gm/dl (2.5-4.0); Total Protein 6.8 gm/dl (6.4-8.2); Troponin I 0.044 ng/ml (0-0.045)
--- NOTE | 2018-05-14 17:44 | CT Scan Report ---
CT head/brain wo con CLINICAL HISTORY: 63 years-old Male with dizziness. Acute dizziness TECHNIQUE: Multiple axial CT images of the head were obtained without contrast. A dose lowering tech nique was utilized adhering to the principles of ALARA. CT DOSE: 959.79 mGy.cm COMPARISON: CT head 12/03/2017. FINDINGS: Motion degraded exam. No acute intracranial hemorrhage, midline shift, intracranial mass, hydrocephal us, territorial ischemia or abnormal extra-axial collection. Mild atrophy. Scattered white matter hyp odensities are suggestive of chronic microvascular ischemic changes. Cerebral vascular calcifications also noted. The calvarium is intact. The paranasal sinuses, mastoid air cells, and middle ear cavities are clear . IMPRESSION: No acute intracranial abnormality. The above report was generated using voice recognition software. It may contain grammatical, syntax o r spelling errors. Electronically signed by: Barry Go M.D. 05/14/2018 5:43 PM
--- NOTE | 2018-05-14 17:49 | XRay Report ---
XR chest 1V portable CLINICAL HISTORY: 63 years-old Male presenting with weakness. TECHNIQUE: Portable upright AP view of the chest was obtained. COMPARISON: 04/29/2018. FINDINGS: Left subclavian implanted cardiac defibrillator with leads to the right atrium, right ventricular ape x, and coronary sinus. Atherosclerosis of the aortic arch. Cardiac silhouette moderately enlarged. Mi ldly low lung volumes. Mild prominence of pulmonary vasculature similar to prior. No focal opacity. N o large effusion or pneumothorax. Osseous structures normal. Surgical clips project over the epigastr ium. IMPRESSION: 1. Cardiomegaly. No other convincing evidence of acute cardiopulmonary disease. Electronically signed by: Pino Hood M.D. 05/14/2018 5:48 PM
[2018-05-14] MEDS ORDERED: SODIUM CHLORIDE 0.9% 1000ML 1,000 ML IV STA (19:07)
[2018-05-14] MEDS ORDERED: SODIUM CHLORIDE 0.9% 1000ML 500 ML IV ONE (19:07)
[2018-05-14 19:22] LABS: Appearance Urine Clear (Clear); Bacteria Urine Automated Negative (Negative); Bilirubin Urine Negative (Negative); Color Urine Yellow; Epithelial Cell Urine Auto >30 /lpf (0-5); Glucose Urine UA Negative (Negative); Ketones Urine Negative (Negative); Leukocyte Esterase Urine Negative (Negative); Nitrite Urine Negative (Negative); Protein Urine 2+ (Negative); Specific Gravity Urine 1.013 (1.000-1.030); Urobilinogen Urine Negative (Negative)
--- NOTE | 2018-05-14 22:04 | History & Physical Report ---
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 -admit to telemetry under observation -baseline Cr 2.8, today 3.5 most likely in setting of torsemide/po intake -received 500mL bolus in ED -gentle IV hydration NS 50cc/hr -repeat bmp in a.m, consult nephrology if no significant improvement (2) Dizziness: -symptoms/exam most consistent with peripheral vertigo vs orthostasis given PAM and initial hypotension vs polypharmacy vs hypoxia vs other etiology -CT brain noted -check orthostatics -meclizine prn -? PT eval for BPPV (3) SOB (shortness of breath): -SOB most likely multi factorial in etiology given S-CHF, , COPD -obtain d-dimer, VQ scan to r/o PE as possible etiology of SOB given subtherapeutic INR -Had PFT 2016 mild obstruction on approp therapy, no significant wheezing on exam, COPD exac less likely -outpatient PCP recommending sleep medicine evaluation -cardiology consult last admission (04/29-05/04) felt SOB unlikely cardiac in nature, no acute signs of CHF, recommend pulm eval -consult pulmonology, appreciate their input -O2 desat study if not already obtained during previous admissions (4) Chronic systolic (congestive) heart failure: -echocardiogram 01/2018 EF 45% -baseline weight 227, 233 today -daily weights, strict I and O, Low Na diet -patient currently euvolemic -continue metoprolol, holding torsemide in setting of PAM -previously admitted 04/13 for CHF Exac, cardiology was on board previous admission, felt Dyspnea not cardiac in origin and at that time recommending pulmonary evaluation (5) Atrial fibrillation: -continue metoprolol for rate/rhythm control; pacemaker -continue warfarin -INR subtherapeutic, will bridge with heparin (6) DM type 2 (diabetes mellitus, type 2): -A1C 10.2 12/29/17 -obtain A1C in a.m. -Lantus 0-20 unit SQ q12hr -novolog per protocol -titrate accordingly -Home regimen is Lantus 52 Units SQ HS; Humalog 7units with breakfast and 10 units Lunch and Dinner (7) COPD (chronic obstructive pulmonary disease): -Mild obstructive pattern on PFTs done 2016 -continue Breo -Spiriva added at outpt follow up on 05/07/18, will hold while inpatient and use duoneb qid (8) Aortic stenosis, moderate: (9) GERD (gastroesophageal reflux disease): -continue PPI (10) Chronic anemia: -secondary to CKD stage 4, normocytic, normochromic -H/H stable at 11.8/36.1 (11) Hypertension: -blood pressure low upon EMS arrival -s/p IVF now 151/80 -continue hydralazine and metoprolol, will hold torsemide for now -monitor (12) Dyslipidemia: -continue crestor (13) Diabetic neuropathy: -gabapentin 100mg tid -weaning off cymbalta recently completed 40mg daily x 7 days, now 20mg daily for 7 days, THEN 20mg Cap every other day for 7 days. (14) Presence of combination internal cardiac defibrillator (ICD) and pacemaker : -pacer interrogated 04/2018 -follows [facility] cardiology (15) DVT prophylaxis: -continue warfarin, INR 1.6 will bridge with heparin -warfarin 2.5mg Sun, 5mg all other days Disposition: D/C to home when able Follow up: with PCP Dr Henning upon discharge Patient was seen in collaboration with Dr. Desai, please see addendum Starting 05/15/18 patient will be followed by Dr. Avalos History of Present Illness Chief Complaint: Dizziness, SOB x weeks. 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 Of note this is the patients 4th presentation for similar sx since 01/2018. Most recently confined 04/29/18-- secondary to SOB, felt to be due to COPD exac as oppose to CHF. He presents today due to waking up with extreme dizziness, described as spinning sensation, worse with head movement, associated with nausea, emesis, SOB. SOB is described as at rest with dizziness, feels like he is huffing and puffing, and TESFAYE. Has chronic moist cough, occasional morris productive sputum with wheezing. He uses 2L at HS, "not because I need it but because I like to use it to sleep." Occasionally wakes up in the middle of the night gasping for air but no orthopnea. Unable to sleep on back so sleeps on side with 1-2 pillows. Denies significant weight gain or edema, baseline weight 227. He recently had hospital f/u with PCP who was recommending outpt sleep medicine evaluation given continued SOB. Also his cymbalta is being tapered. He denies any f/c/s, lightheaded, syncope, URI sx, chest pain, hemoptysis, abd pain, diarrhea, dysuria, hematuria, melena. No family members at bedside. Allergies Allergy/AdvReac Type Severity Reaction Status Date / Time No Known Allergies Allergy Verified 04/29/18 19:45 Home Medications Home Medications Medication Instructions Recorded Confirmed Type albuterol sulfate [ProAir HFA] 2 puff INHALATION Q4H PRN 02/05/18 05/14/18 History aspirin 81 mg PO DAILY 02/05/18 05/14/18 History cholecalciferol (vitamin D3) 2,000 unit PO DAILY 02/05/18 05/14/18 History [Vitamin D3] fluticasone [Flonase Allergy 2 spray INTRANASAL DAILY 02/05/18 05/14/18 History Relief] fluticasone-vilanterol [Breo 1 inh INHALATION DAILY 02/05/18 05/14/18 History Ellipta] insulin glargine [Lantus Solostar 52 units SUBCUT HS 02/05/18 05/14/18 History U-100 Insulin] insulin lispro [Humalog KwikPen 7 units SUBCUT QAM 02/05/18 05/14/18 History Insulin] insulin lispro [Humalog KwikPen 10 unit SUBCUT BID 02/05/18 05/14/18 History Insulin] ipratropium-albuterol 3 ml INHALATION QID 02/05/18 05/14/18 History isosorbide dinitrate 20 mg PO TID 02/05/18 05/14/18 History meclizine 25 mg PO TID PRN 02/05/18 05/14/18 History metoprolol succinate [Toprol XL] 100 mg PO DAILY 02/05/18 05/14/18 History pantoprazole [Protonix] 40 mg PO DAILY 02/05/18 05/14/18 History rosuvastatin [Crestor] 40 mg PO DAILY 02/05/18 05/14/18 History warfarin 2.5 mg PO THOMAS 02/05/18 05/14/18 History warfarin [Coumadin] 5 mg PO [id number] 02/05/18 05/14/18 History torsemide 10 mg PO MoWeFr@0900 30 Days #30 04/16/18 05/14/18 Rx tab hydralazine 25 mg PO TID 30 Days #90 tab 05/03/18 05/14/18 Rx duloxetine 20 mg PO DAILY 05/14/18 05/14/18 History gabapentin 100 mg PO TID 05/14/18 05/14/18 History tiotropium bromide [Spiriva with 1 cap INHALATION DAILY 05/14/18 05/14/18 History HandiHaler] Past Med/Surg History Medical History Nocturnal hypoxia (Chronic) GERD (gastroesophageal reflux disease) (Chronic) Thrombocytopenia (Chronic) Chronic anemia (Chronic) COPD (chronic obstructive pulmonary disease) (Chronic) Asthma (Chronic) DM type 2 (diabetes mellitus, type 2) (Chronic) Dyslipidemia (Chronic) Mild aortic stenosis (Chronic) Hypertension (Chronic) CKD (chronic kidney disease), stage III (Chronic) CAD (coronary artery disease) (Chronic) "nonobstructive" Nonischemic cardiomyopathy (Chronic) "EF 44% with mod on 09/25/17" On 06/19/16 22:01 Kassandra Singh wrote "EF 45-49% on echo 08/2014" LBBB (left bundle branch block) (Chronic) Atrial fibrillation (Chronic) Surgical History H/O cardiac catheterization (Chronic) "03/29/2012- mild nonobstructive CAD" Presence of combination internal cardiac defibrillator (ICD) and pacemaker ( Chronic) History of esophagogastroduodenoscopy (EGD) (Chronic) History of colonoscopy (Chronic) Family History Other Diabetes HTN (hypertension) Lung cancer Social History marital status: Current Living Situation: Spouse Other Information That Helps Us Care for You: No Feels Safe at Home: Yes Safety Concerns: Feels Safe At This Time Smoking Status: Never smoker Tobacco Type: smokeless tobacco Do You Dip or Chew Tobacco: Yes (1 can/day) Second Hand Exposure: No Tobacco Cessation Education Requested by Patient: No Hx Alcohol Use: No Hx Substance Use: No Beliefs That Will Affect Care: None Preferred Language: Slovenian Communication Ability: Effective Primary Counselor Required: No Review of Systems All systems reviewed & are unremarkable except as noted in HPI & below Physical Exam 2 Vital Signs (Past 24 Hours): Last Vital Signs Temp 36.8 C 05/14/18 16:14 Pulse 60 05/14/18 19:19 Resp 10 L 05/14/18 17:20 BP 151/81 H 05/14/18 19:19 Pulse Ox 95 05/14/18 19:19 Physical Exam: Gen: Obese, M, appears older than age, excessive facial hair, NAD, sitting up in bed, pleasant, conversing easily Head: Normocephalic, Atraumatic Eyes: Sclera normal, no conjunctival injection, PERRLA, EOMI, no nystagmus, dizziness reproduced with EOMI ENT: Gross hearing intact, normal pharynx, mucous membranes moist Neck: supple, no adenopathy, No JVD, no bruit, Resp: Clear to auscultation b/l, no wheeze, rales, rhonchi. 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 officer strength Extremities: No edema bilaterally Skin: warm, moist, no rash, negative turgor, cap refill < 2sec Neuro: Alert and oriented x 3, speech normal, good mood/affect, cran nerve 2-12 intact grossly, dizziness reproduced with quick head movements b/l but L>R : deferred Results & Data Laboratory Results Short CBC 05/14/18 05/14/18 Range/Units 16:45 16:45 WBC 4.93 (4.8-10.8) K/uL Hgb 11.8 L (14.0-18.0) g/dL Hct 36.1 L (42-52) % Plt Count 134 (130-400) K/uL PT Cancelled BMP 05/14/18 16:45 Sodium 137 Potassium 4.1 Chloride 101 Carbon Dioxide 25 BUN 56 H Creatinine 3.55 H Glucose 105 H Calcium 9.4 Cardiac Enzymes 05/14/18 Range/Units 16:45 Troponin I 0.044 (0-0.045) ng/ml Liver Function 05/14/18 Range/Units 16:45 Total Bilirubin 0.5 (0.2-1) mg/dl AST 33 (15-37) U/L ALT 58 (12-78) U/L Alkaline Phosphatase 120 H (45-117) U/L Albumin 3.3 L (3.4-5.0) gm/dl Urine 05/14/18 Range/Units 19:10 Urine Color Yellow Urine Appearance Clear (Clear) Urine pH 5.0 (4.5-7.5) Ur Specific [place] 1.013 (1.000-1.030) Urine Protein 2+ H (Negative) Urine Glucose (UA) Negative (Negative) Diagnostic Findings CXR: FINDINGS: Left subclavian implanted cardiac defibrillator with leads to the right atrium, right ventricular apex, and coronary sinus. Atherosclerosis of the aortic arch. Cardiac silhouette moderately enlarged. Mildly low lung volumes. Mild prominence of pulmonary vasculature similar to prior. No focal opacity. No large effusion or pneumothorax. Osseous structures normal. Surgical clips project over the epigastrium. IMPRESSION: 1. Cardiomegaly. No other convincing evidence of acute cardiopulmonary disease. Head CT: Motion degraded exam. No acute intracranial hemorrhage, midline shift, intracranial mass, hydrocephalus, territorial ischemia or abnormal extra-axial collection. Mild atrophy. Scattered white matter hypodensities are suggestive of chronic microvascular ischemic changes. Cerebral vascular calcifications also noted. The calvarium is intact. The paranasal sinuses, mastoid air cells, and middle ear cavities are clear. IMPRESSION: No acute intracranial abnormality. ECG Rate (beats per minute): 62 Findings: + paced rhythm Code Status & VTE Plan Code Status Full Code VTE Prophylaxis Plan VTE Prophylaxis will be ordered: Yes Supervising Physician Co-Signing Physician Notes Agree with above H and P. Briefly 63M with hcx of CHF, COPD, A fib recurrent admissions for sob presents agn with sob and dizziness. His BP was low when EMS arrived Recived fluids and BP improved currently. Denies chest pain. Has some cpough. Uses oxygen while sleeping and as needed. Denies fevers. Had couple of epsisodes of vomitings but ok now. No diarrhea. 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 no volume overload no wheezing d dimer is normal Seen by cardiology last admissions and thought his sob may be not related to chf has hx of copd will consult pulmonary for further recommendations A fib inr sub therapeutic started on iv heparin f/u inr Pam on CKD stage 3 baseline cr 2.7 presented with cr 3.5 on gentle fluids follow labs in am. 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
[2018-05-14] MEDS ORDERED: CARBOHYDRATES FOR HYPOGLYCEMIA PO PRN (22:41)
[2018-05-14] MEDS ORDERED: MECLIZINE HCL 25 MG TAB PO PRN (22:41)
[2018-05-14] MEDS ORDERED: GLUCOSE 40% GEL 15 GM TUBE PO PRN (22:41)
[2018-05-14] MEDS ORDERED: MAGNESIUM HYDROXIDE SUSP 30 ML UDC PO PRN (22:41)
[2018-05-14] MEDS ORDERED: SODIUM CHLORIDE 0.9% 1000ML 1,000 ML IV SCH (22:41)
[2018-05-14] MEDS ORDERED: POLYETHYLENE (MIRALAX) 17 GM PACK PO PRN (22:41)
[2018-05-14] MEDS ORDERED: GLUCOSE 10 TABS/TUBE PO PRN (22:41)
[2018-05-14] MEDS ORDERED: ACETAMINOPHEN 325 MG TAB PO PRN (22:41)
[2018-05-14] MEDS ORDERED: ONDANSETRON INJ 2 MG/ML 2 ML VIAL IV PRN (22:41)
[2018-05-14] MEDS ORDERED: DEXTROSE 50% 50 ML SYRINGE IV PRN (22:41)
[2018-05-14] MEDS ORDERED: ALUMINUM/MAGNESIUM SUSP 30 ML UDC PO PRN (22:41)
[2018-05-14] MEDS ORDERED: GLUCAGON FOR INJ 1 MG VIAL SQ PRN (22:41)
[2018-05-14 22:42] LABS: INR 1.6 (0.9-1.1); Prothrombin Time 15.7 Seconds (9.0-12.0)
[2018-05-14] MEDS ORDERED: Heparin IV Low Dose *NO* Bolus ONE (22:48)
[2018-05-14 23:19] LABS: Partial Thromboplastin Ratio 1.1
[2018-05-15] MEDS: WARFARIN SOD 5 MG TAB PO SCH ×2 (00:07→15:30)
[2018-05-15] MEDS: INSULIN GLARGINE SOLOSTAR 100 UNITS/ML 3 ML PEN SC SCH ×3 (00:07→21:19)
[2018-05-15] MEDS: HEPARIN LOW DOSE DEXTROSE 25,000 UNITS/500 ML IV SCH (00:09)
--- NOTE | 2018-05-15 01:41 | Emergency Department Note ---
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 The patient reports that he is short of breath and dizzy. He states that because of his shortness of breath and dizziness he fell but did not hit his head or lose consciousness. 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 He adds that his diet and appetite has been normal but that he hasn�t been able to keep the food down. The patient reports that he took his blood pressure at home which was 80/60. He states that he is having pain under his pacemaker but that breathing deeply does worsen his pain. He adds that he sees Dr. Benjamín Delatorre PCP and sees [facility]. Pt denies LOC, headache, fevers, chills, diaphoresis, visual changes, neck pain , abdominal pain, back pain, melena, hematochezia, urinary symptoms, numbness, lymphadenopathy, rash, or other complaints. REVIEW OF SYSTEMS: See HPI for pertinent positives and negatives. A total of ten systems were reviewed and were otherwise negative. PMHx/PSHx: GERD, COPD, Asthma, DM, HTN, CKD, CAD, LBBB, A-fib. History of cardiac catheterization, ICD and pacemaker, EGD, and colonoscopy. SOCIAL HISTORY: Patient lives at home. Patient uses tobacco. PHYSICAL EXAM: GENERAL: Awake, alert, well appearing, no distress HENT: Normocephalic, atraumatic. TM's normal. Oropharynx unremarkable. EYES: PERRL. EOMI. Normal conjunctiva. Sclera non-icteric. NECK: Supple. No nuchal rigidity. FROM. No bruit. RESPIRATORY: Breath sounds equal. No wheezes. No rhonchi. Normal respiratory effort. CARDIAC: Normal rate. Regular rhythm. No murmurs. No rubs. No JVD. GI: Soft, non distended. No tenderness to palpation. No rebound or guarding. No masses. RECTAL: Deferred. MUSCULOSKELETAL: Unremarkable. No calf tenderness. No edema. No discoloration. Gross motor strength symmetric. NEURO: Cranial nerves 2-12 grossly intact. Normal sensorium. No sensory or motor deficits noted. Speech normal. No pronator drift. Lateral nystagmus. SKIN: No rash or jaundice noted. LYMPH: No adenopathy. EMERGENCY DEPARTMENT COURSE: 1630: Past medical records reviewed. The patient was evaluated in room C10, and a complete history and physical examination were performed. 1906: I paged the hospitalist service at this time. 1908: I evaluated the patient at this time. 2006: I reviewed the patient's case with Dr. Desai. He will evaluate the patient for further management. MEDICAL DECISION MAKING: Prior records/ancillary studies reviewed . Nursing notes reviewed and agree them. Additional history obtained from the patient's son. The patient's history was concerning for lightheadedness and shortness of breath. The patient was also vomiting. Patient was hypotensive for EMS. Differential diagnosis: Etiologies such as metabolic, infection, hypo/hyperglycemia, electrolyte abnormalities, cardiac sources, intracerebral event, toxicologic, neurologic, as well as others were entertained. Physical examination: As above. Lateral nystagmus noted. ER treatment provided: IV Lock Normal saline hydration On reassessment the patient felt somewhat better. Diagnostics interpretation by me: ECG: Negative for ischemic change. The labs revealed an unremarkable CBC. CABG panel revealed mild acute kidney injury with a creatinine bumping from 2.8-3.5. Troponin negative. Urinalysis unremarkable. Imaging studies: Chest x-ray and CT scan performed. No acute pathology noted. The patient had a hypotensive episode. He has a slightly subtherapeutic INR. Further management in the hospital will be necessary. Consultation: A consultation was placed with the hospitalist. The case was discussed and diagnostics were reviewed. The patient was evaluated in the ER for further treatment. IMPRESSION: Dizziness, Hypotension, PAM PLAN: Being Evaluated by Hospitalist The scribe's documentation has been prepared under my direction and personally reviewed by me in its entirety. I confirm that the note above accurately reflects all work, treatment, procedures, and medical decision making performed by me. Impression & Plan Dizziness, Hypotension, PAM (acute kidney injury) Past Med/Surg History Medical History Nocturnal hypoxia (Chronic) GERD (gastroesophageal reflux disease) (Chronic) Thrombocytopenia (Chronic) Chronic anemia (Chronic) COPD (chronic obstructive pulmonary disease) (Chronic) Asthma (Chronic) DM type 2 (diabetes mellitus, type 2) (Chronic) Dyslipidemia (Chronic) Mild aortic stenosis (Chronic) Hypertension (Chronic) CKD (chronic kidney disease), stage III (Chronic) CAD (coronary artery disease) (Chronic) "nonobstructive" Nonischemic cardiomyopathy (Chronic) "EF 44% with mod on 09/25/17" On 06/19/16 22:01 Kassandra Singh wrote "EF 45-49% on echo 08/2014" LBBB (left bundle branch block) (Chronic) Atrial fibrillation (Chronic) Surgical History H/O cardiac catheterization (Chronic) "03/29/2012- mild nonobstructive CAD" Presence of combination internal cardiac defibrillator (ICD) and pacemaker ( Chronic) History of esophagogastroduodenoscopy (EGD) (Chronic) History of colonoscopy (Chronic) Family History Other Diabetes HTN (hypertension) Lung cancer Social History marital status: Current Living Situation: Spouse Other Information That Helps Us Care for You: No Feels Safe at Home: Yes Safety Concerns: Feels Safe At This Time Smoking Status: Never smoker Tobacco Type: smokeless tobacco Do You Dip or Chew Tobacco: Yes (1 can/day) Second Hand Exposure: No Tobacco Cessation Education Requested by Patient: No Hx Alcohol Use: No Hx Substance Use: No Beliefs That Will Affect Care: None Preferred Language: Upper Sorbian Communication Ability: Effective [employer] Experience Strategy Required: No Results & Data Vital Signs Vital Signs - 24 hr 05/14/18 16:14 05/14/18 16:31 05/14/18 16:59 Temperature 36.8 C Temperature Source Oral Sepsis Recent Fever Within 48 Hours No Sepsis New/Unexplained Change in Mental Status No Sepsis Action Taken by Nursing No Action Required Pulse Rate 76 63 62 Pulse Rate [Right Finger] Pulse Rhythm Regular Pulse Rhythm [Right Finger] Pulse Strength Normal Pulse Strength [Right Finger] Respiratory Rate 22 20 23 Respiratory Effort / Characteristics Non-Labored Spontaneous Respiratory Depth Normal Respiratory Pattern Regular Blood Pressure 104/78 104/78 Blood Pressure [Left Arm] Blood Pressure Mean 86 86 Blood Pressure Mean [Left Arm] Blood Pressure Position Lying Blood Pressure Position [Left Arm] Pulse Oximetry 100 87 L 87 L Oxygen Delivery Method Room Air 05/14/18 17:00 05/14/18 17:01 05/14/18 17:10 Temperature Temperature Source Sepsis Recent Fever Within 48 Hours Sepsis New/Unexplained Change in Mental Status Sepsis Action Taken by Nursing Pulse Rate 61 60 64 Pulse Rate [Right Finger] Pulse Rhythm Pulse Rhythm [Right Finger] Pulse Strength Pulse Strength [Right Finger] Respiratory Rate 18 19 19 Respiratory Effort / Characteristics Respiratory Depth Respiratory Pattern Blood Pressure 146/86 H Blood Pressure [Left Arm] Blood Pressure Mean 106 Blood Pressure Mean [Left Arm] Blood Pressure Position Blood Pressure Position [Left Arm] Pulse Oximetry 92 97 90 Oxygen Delivery Method 05/14/18 17:20 05/14/18 17:42 05/14/18 19:19 Temperature Temperature Source Sepsis Recent Fever Within 48 Hours Sepsis New/Unexplained Change in Mental Status Sepsis Action Taken by Nursing Pulse Rate 61 60 Pulse Rate [Right Finger] Pulse Rhythm Pulse Rhythm [Right Finger] Pulse Strength Pulse Strength [Right Finger] Respiratory Rate 10 L Respiratory Effort / Characteristics Respiratory Depth Respiratory Pattern Blood Pressure 146/86 H 151/81 H Blood Pressure [Left Arm] Blood Pressure Mean 106 104 Blood Pressure Mean [Left Arm] Blood Pressure Position Blood Pressure Position [Left Arm] Pulse Oximetry 89 L 95 Oxygen Delivery Method Room Air 05/14/18 22:42 05/14/18 23:33 05/15/18 00:02 Temperature 36.7 C 36.7 C 36.3 C L Temperature Source Oral Oral Oral Sepsis Recent Fever Within 48 Hours Sepsis New/Unexplained Change in Mental Status Sepsis Action Taken by Nursing Pulse Rate Pulse Rate [Right Finger] 82 82 70 Pulse Rhythm Pulse Rhythm [Right Finger] Regular Pulse Strength Pulse Strength [Right Finger] Normal Respiratory Rate 20 18 18 Respiratory Effort / Characteristics Non-Labored Respiratory Depth Normal Respiratory Pattern Regular Blood Pressure Blood Pressure [Left Arm] 169/98 H 169/98 H 120/77 Blood Pressure Mean Blood Pressure Mean [Left Arm] 121 121 91 Blood Pressure Position Blood Pressure Position [Left Arm] Sitting Lying Pulse Oximetry 96 96 95 Oxygen Delivery Method Room Air Room Air Room Air Home Medications Current Medication List: was personally reviewed by me Laboratory Data Attestation: I reviewed the patient's lab results. Result diagrams: 05/14/18 16:45 05/14/18 16:45 Lab Results 05/14/18 05/14/18 05/14/18 Range/Units 16:45 16:45 16:45 WBC 4.93 (4.8-10.8) K/uL RBC 4.40 L (4.7-6.1) M/uL Hgb 11.8 L (14.0-18.0) g/dL Hct 36.1 L (42-52) % MCV 82.0 (80-100) fL MCH 26.8 (25-34) pg MCHC 32.7 (32-36) g/dL RDW Std Deviation 41.5 (36.4-46.3) fL RDW Coeff of Joey 13.7 (11.5-14.5) % Plt Count 134 (130-400) K/uL MPV 9.6 (7.4-10.4) fL Immature Gran % (Auto) 0.2 % Neut % (Auto) 69.6 % Lymph % (Auto) 14.6 % Moore % (Auto) 13.0 % Eos % (Auto) 2.4 % Baso % (Auto) 0.2 % Immature Gran # (Auto) 0.01 (0.00-0.02) K/uL Neut # (Auto) 3.43 (1.4-6.5) K/uL Lymph # (Auto) 0.72 L (1.2-3.4) K/uL Moore # (Auto) 0.64 H (0.11-0.59) K/uL Eos # (Auto) 0.12 (0-0.5) K/uL Baso # (Auto) 0.01 (0-0.2) K/uL PT Cancelled INR Cancelled APTT (21.0-31.0) Seconds PTT Ratio D-Dimer (0-500) ug/L FEU Sodium 137 (136-145) mmol/L Potassium 4.1 (3.5-5.1) mmol/L Chloride 101 (98-107) mmol/L Carbon Dioxide 25 (21-32) mmol/L Anion Gap 11.0 (3-11) BUN 56 H (7-18) mg/dl Creatinine 3.55 H (0.6-1.4) mg/dl Est Cr Clr Drug Dosing 24.8 ml/min Est GFR ( Amer) 19.8 Est GFR (Non-Af Amer) 17.1 BUN/Creatinine Ratio 15.8 (10-20) Glucose 105 H (70-99) mg/dl POC Glucose (70-99) Calcium 9.4 (8.5-10.1) mg/dl Magnesium 2.3 (1.8-2.4) mg/dl Total Bilirubin 0.5 (0.2-1) mg/dl AST 33 (15-37) U/L ALT 58 (12-78) U/L Alkaline Phosphatase 120 H (45-117) U/L Troponin I 0.044 (0-0.045) ng/ml Total Protein 6.8 (6.4-8.2) gm/dl Albumin 3.3 L (3.4-5.0) gm/dl Globulin 3.5 (2.5-4.0) gm/dl Albumin/Globulin Ratio 0.9 (0.9-2) TSH 3.210 (0.300-4.500) uIu/ml Urine Color Urine Appearance (Clear) Urine pH (4.5-7.5) Ur Specific Julian (1.000-1.030) Urine Protein (Negative) Urine Glucose (UA) (Negative) Urine Ketones (Negative) Urine Blood (Negative) Urine Nitrite (Negative) Urine Bilirubin (Negative) Urine Urobilinogen (Negative) Ur Leukocyte Esterase (Negative) Urine WBC (Auto) (0-5) /hpf Urine RBC (Auto) (0-4) /hpf U Hyaline Cast (Auto) (0-5) /lpf U Epithel Cells (Auto) (0-5) /lpf Urine Bacteria (Auto) (Negative) 05/14/18 05/14/18 05/14/18 Range/Units 19:10 20:15 20:15 WBC (4.8-10.8) K/uL RBC (4.7-6.1) M/uL Hgb (14.0-18.0) g/dL Hct (42-52) % MCV (80-100) fL MCH (25-34) pg MCHC (32-36) g/dL RDW Std Deviation (36.4-46.3) fL RDW Coeff of Joey (11.5-14.5) % Plt Count (130-400) K/uL MPV (7.4-10.4) fL Immature Gran % (Auto) % Neut % (Auto) % Lymph % (Auto) % Moore % (Auto) % Eos % (Auto) % Baso % (Auto) % Immature Gran # (Auto) (0.00-0.02) K/uL Neut # (Auto) (1.4-6.5) K/uL Lymph # (Auto) (1.2-3.4) K/uL Moore # (Auto) (0.11-0.59) K/uL Eos # (Auto) (0-0.5) K/uL Baso # (Auto) (0-0.2) K/uL PT 15.7 H INR 1.6 H APTT (21.0-31.0) Seconds PTT Ratio D-Dimer 400 (0-500) ug/L FEU Sodium (136-145) mmol/L Potassium (3.5-5.1) mmol/L Chloride (98-107) mmol/L Carbon Dioxide (21-32) mmol/L Anion Gap (3-11) BUN (7-18) mg/dl Creatinine (0.6-1.4) mg/dl Est Cr Clr Drug Dosing ml/min Est GFR ( Amer) Est GFR (Non-Af Amer) BUN/Creatinine Ratio (10-20) Glucose (70-99) mg/dl POC Glucose (70-99) Calcium (8.5-10.1) mg/dl Magnesium (1.8-2.4) mg/dl Total Bilirubin (0.2-1) mg/dl AST (15-37) U/L ALT (12-78) U/L Alkaline Phosphatase (45-117) U/L Troponin I (0-0.045) ng/ml Total Protein (6.4-8.2) gm/dl Albumin (3.4-5.0) gm/dl Globulin (2.5-4.0) gm/dl Albumin/Globulin Ratio (0.9-2) TSH (0.300-4.500) uIu/ml Urine Color Yellow Urine Appearance Clear (Clear) Urine pH 5.0 (4.5-7.5) Ur Specific Julian 1.013 (1.000-1.030) Urine Protein 2+ H (Negative) Urine Glucose (UA) Negative (Negative) Urine Ketones Negative (Negative) Urine Blood Negative (Negative) Urine Nitrite Negative (Negative) Urine Bilirubin Negative (Negative) Urine Urobilinogen Negative (Negative) Ur Leukocyte Esterase Negative (Negative) Urine WBC (Auto) 1-5 (0-5) /hpf Urine RBC (Auto) 0-4 (0-4) /hpf U Hyaline Cast (Auto) 5-10 H (0-5) /lpf U Epithel Cells (Auto) >30 H (0-5) /lpf Urine Bacteria (Auto) Negative (Negative) 05/14/18 05/14/18 Range/Units 20:15 23:59 WBC (4.8-10.8) K/uL RBC (4.7-6.1) M/uL Hgb (14.0-18.0) g/dL Hct (42-52) % MCV (80-100) fL MCH (25-34) pg MCHC (32-36) g/dL RDW Std Deviation (36.4-46.3) fL RDW Coeff of Joey (11.5-14.5) % Plt Count (130-400) K/uL MPV (7.4-10.4) fL Immature Gran % (Auto) % Neut % (Auto) % Lymph % (Auto) % Moore % (Auto) % Eos % (Auto) % Baso % (Auto) % Immature Gran # (Auto) (0.00-0.02) K/uL Neut # (Auto) (1.4-6.5) K/uL Lymph # (Auto) (1.2-3.4) K/uL Moore # (Auto) (0.11-0.59) K/uL Eos # (Auto) (0-0.5) K/uL Baso # (Auto) (0-0.2) K/uL PT INR APTT 28.0 (21.0-31.0) Seconds PTT Ratio 1.1 D-Dimer (0-500) ug/L FEU Sodium (136-145) mmol/L Potassium (3.5-5.1) mmol/L Chloride (98-107) mmol/L Carbon Dioxide (21-32) mmol/L Anion Gap (3-11) BUN (7-18) mg/dl Creatinine (0.6-1.4) mg/dl Est Cr Clr Drug Dosing ml/min Est GFR ( Amer) Est GFR (Non-Af Amer) BUN/Creatinine Ratio (10-20) Glucose (70-99) mg/dl POC Glucose 133 H (70-99) Calcium (8.5-10.1) mg/dl Magnesium (1.8-2.4) mg/dl Total Bilirubin (0.2-1) mg/dl AST (15-37) U/L ALT (12-78) U/L Alkaline Phosphatase (45-117) U/L Troponin I (0-0.045) ng/ml Total Protein (6.4-8.2) gm/dl Albumin (3.4-5.0) gm/dl Globulin (2.5-4.0) gm/dl Albumin/Globulin Ratio (0.9-2) TSH (0.300-4.500) uIu/ml Urine Color Urine Appearance (Clear) Urine pH (4.5-7.5) Ur Specific Julian (1.000-1.030) Urine Protein (Negative) Urine Glucose (UA) (Negative) Urine Ketones (Negative) Urine Blood (Negative) Urine Nitrite (Negative) Urine Bilirubin (Negative) Urine Urobilinogen (Negative) Ur Leukocyte Esterase (Negative) Urine WBC (Auto) (0-5) /hpf Urine RBC (Auto) (0-4) /hpf U Hyaline Cast (Auto) (0-5) /lpf U Epithel Cells (Auto) (0-5) /lpf Urine Bacteria (Auto) (Negative) Administered Medications Sodium Chloride (Nss 1000ml) 1,000 mls @ 50 mls/hr IV .Q20H [facility] Stop: 05/15/18 18:40 Last Admin: 05/15/18 00:07 Dose: 50 mls/hr Heparin Sodium/Dextrose (Heparin Sodium/Dextrose) 25,000 units in 500 mls @ 20 mls/hr IV .Q24H [facility]; Protocol Stop: 06/13/18 23:09 Last Admin: 05/15/18 00:09 Dose: 1,000 units/hr, 20 mls/hr Insulin Glargine (Lantus Solostar Pen) 0 - 20 units SC Q12 [facility] Stop: 06/13/18 22:40 Last Admin: 05/15/18 00:07 Dose: 10 units Warfarin Sodium (Coumadin) 5 mg PO [id number]@1600 [facility] Stop: 06/13/18 22:40 Last Admin: 05/15/18 00:07 Dose: 5 mg Discontinued Medications Sodium Chloride (Nss 1000ml) 500 mls @ 999 mls/hr IV .Q31M [facility] Stop: 05/14/18 19:37 Last Infusion: 05/14/18 20:02 Dose: 0 mls/hr Admin: 05/14/18 19:13 Dose: 999 mls/hr Sodium Chloride (Nss 1000ml) 1,000 mls @ 125 mls/hr IV .Q8H [facility] Stop: 05/15/18 03:06 Last Admin: 05/14/18 19:14 Dose: 125 mls/hr Imaging Data Radiologist's Impression: Radiology results as stated below per my review and the radiologist's interpretation: CT head/brain wo con CLINICAL HISTORY: 63 years-old Male with dizziness. Acute dizziness TECHNIQUE: Multiple axial CT images of the head were obtained without contrast. A dose lowering technique was utilized adhering to the principles of ALARA. CT DOSE: 959.79 mGy.cm COMPARISON: CT head 12/03/2017. FINDINGS: Motion degraded exam. No acute intracranial hemorrhage, midline shift, intracranial mass, hydrocephalus, territorial ischemia or abnormal extra-axial collection. Mild atrophy. Scattered white matter hypodensities are suggestive of chronic microvascular ischemic changes. Cerebral vascular calcifications also noted. The calvarium is intact. The paranasal sinuses, mastoid air cells, and middle ear cavities are clear. IMPRESSION: No acute intracranial abnormality. The above report was generated using voice recognition software. It may contain grammatical, syntax or spelling errors. XR chest 1V portable CLINICAL HISTORY: 63 years-old Male presenting with weakness. TECHNIQUE: Portable upright AP view of the chest was obtained. COMPARISON: 04/29/2018. FINDINGS: Left subclavian implanted cardiac defibrillator with leads to the right atrium, right ventricular apex, and coronary sinus. Atherosclerosis of the aortic arch. Cardiac silhouette moderately enlarged. Mildly low lung volumes. Mild prominence of pulmonary vasculature similar to prior. No focal opacity. No large effusion or pneumothorax. Osseous structures normal. Surgical clips project over the epigastrium. IMPRESSION: 1. Cardiomegaly. No other convincing evidence of acute cardiopulmonary disease. Electronically signed by: Pino Hood M.D. 05/14/2018 5:48 PM ECG Data Attestation: I personally reviewed and interpreted this ECG as follows: Indication: weakness Rate (beats per minute): 62 Rhythm: other (Paced rhythm) Findings: no PVC and no ST elevation Blood Pressure Blood Pressure Findings: Elevated blood pressure Blood Pressure Disposition: further management by hospitalist Discharge Plan Visit Data *Final* Discharge Date/Time: 05/14/18 22:24 Chief Complaint: Illness Stated Complaint: SOB, DIZZY ED Provider: Arpan Cameron Discharge Problem: Dizziness, Hypotension, PAM (acute kidney injury) Patient Disposition: Admitted As Inpatient Discharge Instructions Interventions: ED Discharge Assessment Last Done: 05/14/18 22:24 The scribe's documentation has been prepared under my direction and personally reviewed by me in its entirety. I confirm that the note above accurately reflects all work, treatment, procedures, and medical decision making performed by me.
[2018-05-15 06:31] LABS: Hematocrit (blood only) 37.6 % (42-52); Hemoglobin 12.3 g/dL (14.0-18.0); Mean Corpuscular Hgb Conc 32.7 g/dL (32-36); Mean Corpuscular Volume 82.3 fL (80-100); Mean Platelet Volume 9.4 fL (7.4-10.4); Platelet Count 138 K/uL (130-400); RDW Coefficient of Variation 13.8 % (11.5-14.5); RDW Standard Deviation 41.4 fL (36.4-46.3); Red Blood Count 4.57 M/uL (4.7-6.1)
[2018-05-15 06:32] LABS: Estimated Average Glucose 223 mg/dl
[2018-05-15 06:51] LABS: INR 1.5 (0.9-1.1); Prothrombin Time 14.8 Seconds (9.0-12.0)
[2018-05-15 06:55] LABS: Est GFR (Non-African American) 17.3; Partial Thromboplastin Ratio 1.4; Partial Thromboplastin Time 35.3 Seconds (21.0-31.0); Potassium 3.8 mmol/L (3.5-5.1)
[2018-05-15] MEDS: ALBUT/IPRATROP 3MG/0.5MG NEB 3 ML VIAL INH SCH ×2 (07:04→11:37)
[2018-05-15] MEDS ORDERED: HEPARIN IV BOLUS 4,500 UNITS in SYRINGE 0 ML IV ONE (07:30)
[2018-05-15] MEDS: ISOSORBIDE DINITRATE 10 MG TAB PO SCH ×3 (08:22→17:19)
[2018-05-15] MEDS: METOPROLOL SUCC 50MG EXT REL TAB PO SCH (08:23)
[2018-05-15] MEDS: GABAPENTIN 100 MG CAP PO SCH ×3 (08:23→21:18)
[2018-05-15] MEDS: DULOXETINE HCL 20 MG CAP PO SCH (08:23)
[2018-05-15] MEDS: FLUTICASONE PROPIONATE NA SPR 16 GM BTL SCH (08:23)
[2018-05-15] MEDS: CHOLECALCIFEROL 1,000 UNITS TAB PO SCH (08:23)
[2018-05-15] MEDS: ASPIRIN 81 MG ECTAB PO SCH (08:23)
[2018-05-15] MEDS: PANTOprazole 40 MG TAB PO SCH (08:23)
[2018-05-15] MEDS: ROSUVASTATIN CALCIUM 20 MG TAB PO SCH (08:23)
[2018-05-15] MEDS: INSULIN ASPART 100 UNITS/ML 3 ML PEN SC SCH ×4 (08:30→21:20)
--- NOTE | 2018-05-15 11:06 | Hospitalist Progress Note ---
Date of Service May 15, 2018 Assessment & Plan (1) SOB (shortness of breath): -SOB most likely multi factorial in etiology given S-CHF, , COPD -obtain d-dimer-400 -Had PFT 2016 mild obstruction on approp therapy, no significant wheezing on exam, COPD exac less likely -outpatient PCP recommending sleep medicine evaluation -consult pulmonology, appreciate their input -He has been continuing to chew tobacco -We will need outpatient pulmonary workup and pulmonary follow-up -Clinically better today -Continue current medication (2) Dizziness: -symptoms/exam most consistent with peripheral vertigo vs orthostasis given PAM and initial hypotension vs polypharmacy vs hypoxia vs other etiology -May have autonomic neuropathy secondary to diabetes -CT brain noted -check orthostatics -Blood pressure has been normalized (3) Acute kidney injury superimposed on CKD: This is a 63 y/o M with PMH non-ischemic cardiomyopathy, s/p pacemaker, atrial fibrillation on coumadin, COPD, DM II, 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 -admit to telemetry under observation -baseline Cr 2.8, today 3.5 most likely in setting of torsemide/po intake -received 500mL bolus in ED -gentle IV hydration NS 50cc/hr -Creatinine 3.5 to 05/15, not worse since admission (4) Chronic systolic (congestive) heart failure: -echocardiogram 01/2018 EF 45% -baseline weight 227, 233 today -daily weights, strict I and O, Low Na diet -patient currently euvolemic -continue metoprolol, holding torsemide in setting of PAM -previously admitted 04/13 for CHF Exac, cardiology was on board previous admission, felt Dyspnea not cardiac in origin and at that time recommending pulmonary evaluation -We will continue current dose of diuretics (5) Atrial fibrillation: -continue metoprolol for rate/rhythm control; pacemaker -continue warfarin -INR subtherapeutic, will bridge with heparin -Monitor INR (6) DM type 2 (diabetes mellitus, type 2): -A1C 10.2 12/29/17 -obtain A1C in a.m. -Lantus 0-20 unit SQ q12hr -novolog per protocol -titrate accordingly -Home regimen is Lantus 52 Units SQ HS; Humalog 7units with breakfast and 10 units Lunch and Dinner (7) COPD (chronic obstructive pulmonary disease): -Mild obstructive pattern on PFTs done 2016 -continue Breo -Spiriva added at outpt follow up on 05/07/18, will hold while inpatient and use duoneb qid -Continues to chew tobacco -Will need outpatient pulmonary function test in detail (8) Aortic stenosis, moderate: (9) GERD (gastroesophageal reflux disease): -continue PPI (10) Chronic anemia: -secondary to CKD stage 4, normocytic, normochromic -H/H stable at 11.8/36.1 (11) Hypertension: -blood pressure low upon EMS arrival -s/p IVF now 151/80 -continue hydralazine and metoprolol, will hold torsemide for now -monitor (12) Dyslipidemia: -continue crestor (13) Diabetic neuropathy: -gabapentin 100mg tid -weaning off cymbalta recently completed 40mg daily x 7 days, now 20mg daily for 7 days, THEN 20mg Cap every other day for 7 days. -We will check orthostasis -May have diabetic neuropathy (14) Presence of combination internal cardiac defibrillator (ICD) and pacemaker : -pacer interrogated 04/2018 -[facility] (15) DVT prophylaxis: -continue warfarin, INR 1.6 will bridge with heparin -warfarin 2.5mg Sun, 5mg all other days Disposition: D/C to home when able Follow up: with PCP Dr Henning upon discharge Patient was seen in collaboration with Dr. Desai, please see addendum Starting 05/15/18 patient will be followed by Dr. Avalos Subjective This is a 63 y/o M with PMH non-ischemic cardiomyopathy, s/p dual-chamber ICD, atrial fibrillation on coumadin, COPD, DM II, chronic systolic 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 05/15 The patient was seen and examined in telemetry unit His breathing is much better following admission Still complains of shortness of breath on exertion but no chest pain His blood pressure is improved Physical Exam 2 Vital Signs (Past 24 Hours): Last Vital Signs Temp 36.8 C 05/15/18 07:10 Pulse 87 05/15/18 08:00 Resp 18 05/15/18 07:10 BP 168/96 H 05/15/18 07:10 Pulse Ox 100 05/15/18 07:10 Physical Exam: Lying in bed comfortably Constitutional: WD/WN, vitals as above Eyes: PERRL, conjunctivae normal, anicteric sclerae ENMT: external ear and nose normal, oropharynx normal Neck: trachea midline, no thyromegaly Respiratory: normal respiratory effort; no respiratory distress and no labored breathing Auscultation: + diminished lung sounds and + wheezes ( Minimal wheezing); no crackles Cardiovascular: Rate/Rhythm: regular rate and regular rhythm Heart Sounds: normal S1, normal S2 and + murmur (2/6 ejection systolic murmur over aortic area ) Gastrointestinal (Abdomen): Inspection/Auscultation: abdomen normal to inspection and normal bowel sounds Neurologic: Alert, awake and oriented times Results & Data Laboratory Results Short CBC 05/14/18 05/15/18 Range/Units 16:45 06:01 WBC 4.93 5.20 (4.8-10.8) K/uL Hgb 11.8 L 12.3 L (14.0-18.0) g/dL Hct 36.1 L 37.6 L (42-52) % Plt Count 134 138 (130-400) K/uL BMP 05/14/18 05/15/18 16:45 06:01 Sodium 137 137 Potassium 4.1 3.8 Chloride 101 99 Carbon Dioxide 25 30 BUN 56 H 56 H Creatinine 3.55 H 3.52 H Glucose 105 H 157 H Calcium 9.4 9.0 Cardiac Enzymes 05/14/18 Range/Units 16:45 Troponin I 0.044 (0-0.045) ng/ml Liver Function 05/14/18 Range/Units 16:45 Total Bilirubin 0.5 (0.2-1) mg/dl AST 33 (15-37) U/L ALT 58 (12-78) U/L Alkaline Phosphatase 120 H (45-117) U/L Albumin 3.3 L (3.4-5.0) gm/dl Urine 05/14/18 Range/Units 19:10 Urine Color Yellow Urine Appearance Clear (Clear) Urine pH 5.0 (4.5-7.5) Ur Specific [place] 1.013 (1.000-1.030) Urine Protein 2+ H (Negative) Urine Glucose (UA) Negative (Negative) Medications Administered Current Inpatient Medications Acetaminophen (Tylenol) 650 mg PO Q4H PRN PRN Reason: Pain or Fever Stop: 06/13/18 22:40 Al Hydrox/Mg Hydrox/Simethicone (Maalox) 15 ml PO Q4H PRN PRN Reason: Dyspepsia Stop: 06/13/18 22:40 Albuterol (Duoneb) 3 ml INH QIDR [facility] Stop: 06/14/18 07:59 Last Admin: 05/15/18 07:04 Dose: 3 ml Aspirin (Ecotrin Ectab) 81 mg PO DAILY [facility] Stop: 06/14/18 08:59 Last Admin: 05/15/18 08:23 Dose: 81 mg Dextrose (Dextrose 50%) 25 - 50 ml IV UD PRN; Protocol PRN Reason: Hypoglycemia Protocol Stop: 06/13/18 22:40 Duloxetine HCl (Cymbalta) 20 mg PO DAILY [facility] Stop: 05/21/18 09:01 Last Admin: 05/15/18 08:23 Dose: 20 mg Duloxetine HCl (Cymbalta) 20 mg PO Q2D@0900 [facility] Stop: 06/22/18 08:59 Fluticasone Propionate (Flonase) 2 sprays NA DAILY [facility] Stop: 06/14/18 08:59 Last Admin: 05/15/18 08:23 Dose: 2 sprays Gabapentin (Neurontin) 100 mg PO TID [facility] Stop: 06/14/18 08:59 Last Admin: 05/15/18 08:23 Dose: 100 mg Glucagon (Glucagen) 1 mg SQ UD PRN; Protocol PRN Reason: Hypoglycemia Protocol Stop: 06/13/18 22:40 Glucose (Glucose 40%) 15 - 30 gm PO UD PRN; Protocol PRN Reason: Hypoglycemia Protocol Stop: 06/13/18 22:40 Glucose (Dex4 Glucose) 4 - 8 tabs PO UD PRN; Protocol PRN Reason: Hypoglycemia Protocol Stop: 06/13/18 22:40 Hydralazine HCl (Apresoline) 25 mg PO TID [facility] Stop: 06/14/18 08:59 Last Admin: 05/15/18 08:22 Dose: 25 mg Sodium Chloride (Nss 1000ml) 1,000 mls @ 50 mls/hr IV .Q20H [facility] Stop: 05/15/18 18:40 Last Admin: 05/15/18 00:07 Dose: 50 mls/hr Heparin Sodium/Dextrose (Heparin Sodium/Dextrose) 25,000 units in 500 mls @ 23 mls/hr IV .Q24H [facility]; Protocol Stop: 06/13/18 23:09 Last Titration: 05/15/18 07:01 Dose: 1,150 units/hr, 23 mls/hr Insulin Aspart (Novolog Flexpen) 0 units SC ACHS [facility] Stop: 06/14/18 07:29 Last Admin: 05/15/18 08:30 Dose: 5 units Insulin Glargine (Lantus Solostar Pen) 0 - 20 units SC Q12 [facility] Stop: 06/13/18 22:40 Last Admin: 05/15/18 08:31 Dose: 10 units Isosorbide Dinitrate (Isordil) 20 mg PO TID@0700,1200,1700 [facility] Stop: 06/14/18 06:59 Last Admin: 05/15/18 08:22 Dose: 20 mg Magnesium Hydroxide (Milk Of Magnesia) 30 ml PO Q12H PRN PRN Reason: Constipation Stop: 06/13/18 22:40 Meclizine HCl (Antivert) 25 mg PO TID PRN PRN Reason: Dizziness Stop: 06/13/18 22:40 Metoprolol Succinate (Toprol Xl) 100 mg PO DAILY [facility] Stop: 06/14/18 08:59 Last Admin: 05/15/18 08:23 Dose: 100 mg Miscellaneous (Carbohydrates For Hypoglycemia) 15 - 30 gm PO UD PRN PRN Reason: Hypoglycemia Treatment Stop: 06/13/18 22:40 Miscellaneous (Order Awaiting Action) 1 ea N/A QS [facility] Stop: 06/14/18 07:59 Last Admin: 05/15/18 08:20 Dose: Not Given Ondansetron HCl (Zofran) 4 mg IV Q6H PRN PRN Reason: Nausea Stop: 06/13/18 22:40 Last Admin: 05/15/18 07:12 Dose: 4 mg Pantoprazole Sodium (Protonix) 40 mg PO DAILY [facility] Stop: 06/14/18 08:59 Last Admin: 05/15/18 08:23 Dose: 40 mg Polyethylene Glycol (Miralax Powder Packet) 17 gm PO DAILY PRN PRN Reason: Constipation Stop: 06/13/18 22:40 Rosuvastatin Calcium (Crestor) 40 mg PO DAILY [facility] Stop: 06/14/18 08:59 Last Admin: 05/15/18 08:23 Dose: 40 mg Vitamin D (Vitamin D3) 2,000 units PO DAILY [facility] Stop: 06/14/18 08:59 Last Admin: 05/15/18 08:23 Dose: 2,000 units Warfarin Sodium (Coumadin) 2.5 mg PO Robert@1600 [facility] Stop: 06/15/18 15:59 Warfarin Sodium (Coumadin) 5 mg PO MoTuWeThFrSa@1600 [facility] Stop: 06/13/18 22:40 Last Admin: 05/15/18 00:07 Dose: 5 mg _ (1) Diabetic neuropathy Diabetes mellitus complication detail: with other neurological complication Diabetes mellitus type: type 2 Qualified Code(s): E11.49 - Type 2 diabetes mellitus with other diabetic neurological complication (2) DM type 2 (diabetes mellitus, type 2) Chronic kidney disease stage: Diabetes mellitus complication detail: with unspecified neuropathy Diabetes mellitus complication status: with neurologic complications Diabetes mellitus termite technician insulin use: with termite technician use Diabetes mellitus macular edema: Diabetic retinopathy severity: Laterality: Proliferative retinopathy type: Qualified Code(s): E11.40 - Type 2 diabetes mellitus with diabetic neuropathy, unspecified; Z79.4 - jail (current) use of insulin (3) Atrial fibrillation Atrial fibrillation type: chronic Qualified Code(s): I48.2 - Chronic atrial fibrillation (4) COPD (chronic obstructive pulmonary disease) COPD type: unspecified COPD Chronic bronchitis type: Emphysema type: Qualified Code(s): J44.9 - Chronic obstructive pulmonary disease, unspecified (5) GERD (gastroesophageal reflux disease) Esophagitis presence: esophagitis presence not specified Qualified Code(s): K21.9 - Gastro-esophageal reflux disease without esophagitis (6) Hypertension Hypertension type: essential hypertension Qualified Code(s): I10 - Essential (primary) hypertension
--- NOTE | 2018-05-15 12:11 | Pulmonary Consultation ---
Date of Consultation May 15, 2018 Assessment & Plan (1) Acute kidney injury superimposed on CKD: Impression: 1. Dyspnea secondary to cardiac versus muscular fatigue. The patient has extensive cardiac history including cardiomyopathy, ejection fraction of 30%, AICD in place, moderate aortic stenosis, A. fib. 2. Given the fact the patient had influenza pneumonia a year ago, prolonged effect of post viral syndrome neuromuscular weakness can be extended for a year or so. Cannot be confirmed as an inpatient. 3. Nicotine abuse in the form of chewing tobacco, patient is lifetime non- smoker. 4. Sleep breathing disorder, could not tolerate positive pressure ventilation whatsoever. 5. Small right lower lobe pulmonary nodule measuring approximately 5 mm by the major fissure. Superior segment right lower lobe nodule measuring 3 mm. Plan: 1. The patient did have pulmonary function test in the past, I could not located, I have repeated the spirometry which showed FEV1 of 89%, FVC of 88%, ratio of 81%, FEF 25-75% is 85%. These findings exclude obstructive lung disease such as COPD, asthma or bronchiectasis. 2. CAT scan of the chest did not support the presence of obstructive lung disease nor interstitial lung disease. 3. In the event the patient continued to have shortness of breath, evaluation with CPXT as an outpatient can be done. It with target the organ rather than the disease process that caused his dyspnea. 4. Concentration on his cardiorenal syndrome should have the priority in his management of his dyspnea. 5. Quit chewing tobacco, the risk is comparable to smoking cigarettes. 6. Repeat the CAT scan of the chest in 12 months. 7. Evaluation of neuromuscular weakness can be done however full pulmonary function test would be a better option than just spirometry. 8. Discontinue bronchodilators. Thank you for the kind referral, will follow as needed. History of Present Illness Reason for Consultation: Recurrent admission to the hospital due to shortness of breath. Requesting Physician: Dr. Avalos Attending Physician: Paola Avalos MD History of Present Illness Dear Dr. Avalos: Thank you for your kind referral of Mr. Delarosa to pulmonary service. This is 63- year-old gentleman with extensive cardiac history including congestive heart failure with ejection fraction of 30%, AICD in place, moderate aortic stenosis, active chewing tobacco, GERD, A. fib, diabetes, presented to the hospital with increasing shortness of breath, his exercise capacity was less than 25 feet, the patient feels short of breath even going flight of stairs, he denies any muscular weakness in lower extremities, a year ago he did have influenza pneumonia. The patient did not have any fever or sick contact on this admission , denies any chest pain, no nausea or vomiting, no constitutional symptoms. The patient did not have orthopnea, no nocturnal symptoms, no cough or sputum production. He is non-smoker lifetime but he to tobacco daily. He has been doing it for 57 years. 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 His review of system apart from the above was unremarkable. Allergies Allergy/AdvReac Type Severity Reaction Status Date / Time No Known Allergies Allergy Verified 04/29/18 19:45 Home Medications Home Medications Medication Instructions Recorded Confirmed Type albuterol sulfate [ProAir HFA] 2 puff INHALATION Q4H PRN 02/05/18 05/14/18 History aspirin 81 mg PO DAILY 02/05/18 05/14/18 History cholecalciferol (vitamin D3) 2,000 unit PO DAILY 02/05/18 05/14/18 History [Vitamin D3] fluticasone [Flonase Allergy 2 spray INTRANASAL DAILY 02/05/18 05/14/18 History Relief] fluticasone-vilanterol [Breo 1 inh INHALATION DAILY 02/05/18 05/14/18 History Ellipta] insulin glargine [Lantus Solostar 52 units SUBCUT HS 02/05/18 05/14/18 History U-100 Insulin] insulin lispro [Humalog KwikPen 7 units SUBCUT QAM 02/05/18 05/14/18 History Insulin] insulin lispro [Humalog KwikPen 10 unit SUBCUT BID 02/05/18 05/14/18 History Insulin] ipratropium-albuterol 3 ml INHALATION QID 02/05/18 05/14/18 History isosorbide dinitrate 20 mg PO TID 02/05/18 05/14/18 History meclizine 25 mg PO TID PRN 02/05/18 05/14/18 History metoprolol succinate [Toprol XL] 100 mg PO DAILY 02/05/18 05/14/18 History pantoprazole [Protonix] 40 mg PO DAILY 02/05/18 05/14/18 History rosuvastatin [Crestor] 40 mg PO DAILY 02/05/18 05/14/18 History warfarin 2.5 mg PO THOMAS 02/05/18 05/14/18 History warfarin [Coumadin] 5 mg PO [id number] 02/05/18 05/14/18 History torsemide 10 mg PO MoWeFr@0900 30 Days #30 04/16/18 05/14/18 Rx tab hydralazine 25 mg PO TID 30 Days #90 tab 05/03/18 05/14/18 Rx duloxetine 20 mg PO DAILY 05/14/18 05/14/18 History gabapentin 100 mg PO TID 05/14/18 05/14/18 History tiotropium bromide [Spiriva with 1 cap INHALATION DAILY 05/14/18 05/14/18 History HandiHaler] Patient History Medical History Nocturnal hypoxia (Chronic) GERD (gastroesophageal reflux disease) (Chronic) Thrombocytopenia (Chronic) Chronic anemia (Chronic) COPD (chronic obstructive pulmonary disease) (Chronic) Asthma (Chronic) DM type 2 (diabetes mellitus, type 2) (Chronic) Dyslipidemia (Chronic) Mild aortic stenosis (Chronic) Hypertension (Chronic) CKD (chronic kidney disease), stage III (Chronic) CAD (coronary artery disease) (Chronic) "nonobstructive" Nonischemic cardiomyopathy (Chronic) "EF 44% with mod on 09/25/17" On 06/19/16 22:01 Kassandra Singh wrote "EF 45-49% on echo 08/2014" LBBB (left bundle branch block) (Chronic) Atrial fibrillation (Chronic) Surgical History H/O cardiac catheterization (Chronic) "03/29/2012- mild nonobstructive CAD" Presence of combination internal cardiac defibrillator (ICD) and pacemaker ( Chronic) History of esophagogastroduodenoscopy (EGD) (Chronic) History of colonoscopy (Chronic) Family History Other Diabetes HTN (hypertension) Lung cancer Social History marital status: Current Living Situation: Spouse Other Information That Helps Us Care for You: No Feels Safe at Home: Yes Safety Concerns: Feels Safe At This Time Smoking Status: Never smoker Tobacco Type: smokeless tobacco Do You Dip or Chew Tobacco: Yes (1 can/day) Second Hand Exposure: No Tobacco Cessation Education Requested by Patient: No Hx Alcohol Use: No Hx Substance Use: No Beliefs That Will Affect Care: None Preferred Language: Niuean Communication Ability: Effective Nuclear Weapons Custodian Required: No Review of Systems Review of systems x14 systems were unremarkable except for the above. Physical Exam 2 Vital Signs (Past 24 Hours): Last Vital Signs Temp 36.8 C 05/15/18 07:10 Pulse 69 05/15/18 11:37 Resp 16 05/15/18 11:37 BP 168/96 H 05/15/18 07:10 Pulse Ox 93 05/15/18 11:37 Physical Exam: Vital signs are stable, S1-S2 regular rate and rhythm, lungs are clear, no wheezing, systolic ejection murmur is audible, abdomen is obese but benign, no edema in the periphery. No pain in his calves. Results & Data Laboratory Results His labs showed stable CBC, BUN and creatinine is 56 and 3.5. Glucose is slightly elevated. Diagnostic Findings Chest x-ray was reviewed which showed cardiomegaly, AICD in place. No pleural effusion. CAT scan of the chest which I reviewed personally showed normal lungs except for 2 nodules mainly at the fissure in the right lower lobe. Dilated pulmonary artery. Cardiomegaly. No pleural effusion.
--- NOTE | 2018-05-15 12:21 | CT Scan Report ---
CT chest wo con CT DOSE: 799.88 mGy.cm CLINICAL HISTORY: 63 years-old Male with unexplained sob , recurrent admissions. . Acute shortness o f breath TECHNIQUE: Multiaxial CT images of the chest were performed without contrast. A dose lowering techni que was utilized adhering to the principles of ALARA. COMPARISON: Chest radiograph 05/14/[address] 03/22/2017. FINDINGS: No dominant thyroid nodule identified. Minimal calcified right hilar adenopathy. No enlarged lymph n odes by CT size criteria. Moderate multichamber cardiac enlargement without pericardial effusion. Cor onary arterial calcifications are noted. Left subclavian pacer/AICD is noted with leads overlying the atria and right ventricle. Mild ectasia of the ascending thoracic aorta, 3.9 x 3.7 cm. Moderate asso ciated calcified plaque. Main pulmonary artery is dilated at 3.8 cm transversely suggestive of pulmon jeniffer arterial hypertension. No pneumothorax or pleural effusion. Minimal subsegmental bibasilar groundglass opacities suggest ate lectasis. Ill-defined 6 mm groundglass opacity about the superior segment left lower lobe appears new from comparison. 3 mm solid nodule of the right lower lobe image 182 series 4. 2 mm solid nodule of the superior segment right lower lobe. The small solid nodules are likely benign. Central airways sukumar ear patent. No focal airspace consolidation to suggest pneumonia. Spleen is mildly enlarged, 14.2 cm. 3.6 cm hypodense lesion of the superior pole left kidney suggests renal cyst. No acute process of the imaged upper abdomen. Cholelithiasis. Soft tissues are unremarka ble. Surgical clips project in the region of the left adrenal gland. Bones appear to be intact. Multi level spondylitic spurring with facet arthrosis. IMPRESSION: 1. No acute intrathoracic abnormality identified. 2. No pleural effusion or focal airspace consolidation to suggest pneumonia. 3. Cardiomegaly without evidence of pulmonary edema. 4. Evidence of pulmonary arterial hypertension. 5. Ill-defined 6 mm groundglass nodule of the superior segment left lower lobe. Follow-up guidelines provided below. 6. Splenomegaly. 7. Cholelithiasis. Please refer to below summary of Fleischner criteria recommendations for follow-up of incidental CT n odules (Rosetta Villalobos, Guidelines for management of small pulmonary nodules detected on CT scans: A sta tement from the Fleischner Society, Radiology 237: [phone].) Note: newly detected indeterminate nodule in persons 35 years of age or older. * Low risk patients: minimal or absent history of smoking and/or other known risk factors * high risk patients: history of smoking or of other known risk factors (e.g. first degree relative with lung cancer, or exposure to asbestos, radon, uranium) * if a nodule up to 8 mm is partly solid or is ground glass further follow-up is required after 24 m onths to exclude possible slow growing adenocarcinoma (HIRA) SUBSOLID NODULES Solitary pure ground-glass nodule * nodule size <6 mm - no CT follow-up required * nodule size >=6 mm - follow-up CT at 6-12 months, then every 2 years until 5 years The above report was generated using voice recognition software. It may contain grammatical, syntax o r spelling errors. Electronically signed by: Barry Go M.D. 05/15/2018 12:19 PM
[2018-05-15] MEDS ORDERED: ALBUT/IPRATROP 3MG/0.5MG NEB 3 ML VIAL NEB PRN (13:23)
[2018-05-15 15:00] LABS: Partial Thromboplastin Time 51.8 Seconds (21.0-31.0)
[2018-05-16] MEDS ORDERED: INSULIN ASPART 100 UNITS/ML 3 ML PEN SC ONE (00:04)
[2018-05-16] MEDS: HEPARIN LOW DOSE DEXTROSE 25,000 UNITS/500 ML IV SCH ×2 (01:13→21:04)
[2018-05-16 06:54] LABS: Hematocrit (blood only) 34.1 % (42-52); Mean Corpuscular Hgb Conc 32.3 g/dL (32-36); Mean Platelet Volume 9.3 fL (7.4-10.4); Platelet Count 117 K/uL (130-400); RDW Coefficient of Variation 13.6 % (11.5-14.5); RDW Standard Deviation 41.2 fL (36.4-46.3); Red Blood Count 4.11 M/uL (4.7-6.1); White Blood Count 4.21 K/uL (4.8-10.8)
[2018-05-16 07:12] LABS: INR 1.6 (0.9-1.1); Partial Thromboplastin Ratio 1.6; Partial Thromboplastin Time 42.5 Seconds (21.0-31.0); Prothrombin Time 16.1 Seconds (9.0-12.0)
[2018-05-16] MEDS ORDERED: HEPARIN IV BOLUS 3,000 UNITS in SYRINGE 0 ML IV ONE (07:30)
[2018-05-16] MEDS: ROSUVASTATIN CALCIUM 20 MG TAB PO SCH (08:36)
[2018-05-16] MEDS: ASPIRIN 81 MG ECTAB PO SCH (08:36)
[2018-05-16] MEDS: PANTOprazole 40 MG TAB PO SCH (08:36)
[2018-05-16] MEDS: DULOXETINE HCL 20 MG CAP PO SCH (08:36)
[2018-05-16] MEDS: FLUTICASONE PROPIONATE NA SPR 16 GM BTL SCH (08:36)
[2018-05-16] MEDS: ISOSORBIDE DINITRATE 10 MG TAB PO SCH ×3 (08:36→17:06)
[2018-05-16] MEDS: GABAPENTIN 100 MG CAP PO SCH ×3 (08:36→21:14)
[2018-05-16] MEDS: METOPROLOL SUCC 50MG EXT REL TAB PO SCH (08:36)
[2018-05-16] MEDS: INSULIN GLARGINE SOLOSTAR 100 UNITS/ML 3 ML PEN SC SCH ×2 (08:37→21:09)
[2018-05-16] MEDS: CHOLECALCIFEROL 1,000 UNITS TAB PO SCH (08:37)
[2018-05-16] MEDS: INSULIN ASPART 100 UNITS/ML 3 ML PEN SC SCH ×4 (08:37→21:08)
--- NOTE | 2018-05-16 11:17 | Hospitalist Progress Note ---
Date of Service May 16, 2018 Assessment & Plan (1) SOB (shortness of breath): -SOB most likely multi factorial in etiology given S-CHF, , COPD -obtain d-dimer-400 -Had PFT 2016 mild obstruction on approp therapy, no significant wheezing on exam, COPD exac less likely -outpatient PCP recommending sleep medicine evaluation -consult pulmonology, appreciate their input -He has been continuing to chew tobacco -We will need outpatient pulmonary workup and pulmonary follow-up -Clinically better today -Continue current medication -CAT scan did not show any evidence of COPD/pneumonia and/or CHF -Will need outpatient follow-up with entry table operator on discharge (2) Dizziness: -symptoms/exam most consistent with peripheral vertigo vs orthostasis given PAM and initial hypotension vs polypharmacy vs hypoxia vs other etiology -May have autonomic neuropathy secondary to diabetes -CT brain noted -check orthostatics -Blood pressure has been normalized -Denies any more dizziness (3) Acute kidney injury superimposed on CKD: This is a 63 y/o M with PMH non-ischemic cardiomyopathy, s/p pacemaker, atrial fibrillation on coumadin, COPD, DM II, 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 -admit to telemetry under observation -baseline Cr 2.8, today 3.5 most likely in setting of torsemide/po intake -received 500mL bolus in ED -gentle IV hydration NS 50cc/hr -Creatinine 3.5 to 05/15, not worse since admission -Creatinine remains more than 3 as of today-05/16 (4) Chronic systolic (congestive) heart failure: -echocardiogram 01/2018 EF 45% -baseline weight 227, 233 today -daily weights, strict I and O, Low Na diet -patient currently euvolemic -continue metoprolol, holding torsemide in setting of PAM -previously admitted 04/13 for CHF Exac, cardiology was on board previous admission, felt Dyspnea not cardiac in origin and at that time recommending pulmonary evaluation -We will continue current dose of diuretics (5) Atrial fibrillation: -continue metoprolol for rate/rhythm control; pacemaker -continue warfarin -INR subtherapeutic, will bridge with heparin -Monitor INR (6) DM type 2 (diabetes mellitus, type 2): -A1C 10.2 12/29/17 -obtain A1C in a.m. -Lantus 0-20 unit SQ q12hr -novolog per protocol -titrate accordingly -Home regimen is Lantus 52 Units SQ HS; Humalog 7units with breakfast and 10 units Lunch and Dinner (7) COPD (chronic obstructive pulmonary disease): -Mild obstructive pattern on PFTs done 2016 -continue Breo -Spiriva added at outpt follow up on 05/07/18, will hold while inpatient and use duoneb qid -Continues to chew tobacco -Will need outpatient pulmonary function test in detail (8) Aortic stenosis, moderate: (9) GERD (gastroesophageal reflux disease): -continue PPI (10) Chronic anemia: -secondary to CKD stage 4, normocytic, normochromic -H/H stable at 11.8/36.1 (11) Hypertension: -blood pressure low upon EMS arrival -s/p IVF now 151/80 -continue hydralazine and metoprolol, will hold torsemide for now -monitor (12) Dyslipidemia: -continue crestor (13) Diabetic neuropathy: -gabapentin 100mg tid -weaning off cymbalta recently completed 40mg daily x 7 days, now 20mg daily for 7 days, THEN 20mg Cap every other day for 7 days. -We will check orthostasis -May have diabetic neuropathy (14) Presence of combination internal cardiac defibrillator (ICD) and pacemaker : -pacer interrogated 04/2018 -follows [facility] cardiology (15) DVT prophylaxis: -continue warfarin, INR 1.6 will bridge with heparin -warfarin 2.5mg Sun, 5mg all other days Disposition: D/C to home when able Follow up: with PCP Dr Henning upon discharge Patient was seen in collaboration with Dr. Desai, please see addendum Likely discharge tomorrow Subjective This is a 63 y/o M with PMH non-ischemic cardiomyopathy, s/p dual-chamber ICD, atrial fibrillation on coumadin, COPD, DM II, chronic systolic 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 05/15 The patient was seen and examined in telemetry unit His breathing is much better following admission Still complains of shortness of breath on exertion but no chest pain His blood pressure is improved 05/16 The patient was seen and examined in telemetry unit Shortness of breath is better at rest Minimal shortness of breath on exertion CT of the chest did not show any COPD and/or CHF A small nodule that has to be followed up in about 1 year and CAT scan Physical Exam 2 Vital Signs (Past 24 Hours): Last Vital Signs Temp 36.8 C 05/16/18 07:50 Pulse 65 05/16/18 08:00 Resp 16 05/16/18 07:50 BP 145/83 H 05/16/18 07:50 Pulse Ox 92 05/16/18 07:50 Constitutional: WD/WN, vitals as above Eyes: PERRL, conjunctivae normal, anicteric sclerae ENMT: external ear and nose normal, oropharynx normal Neck: trachea midline, no thyromegaly Respiratory: normal respiratory effort; no respiratory distress and no labored breathing Auscultation: + diminished lung sounds and + wheezes ( Minimal wheezing); no crackles Cardiovascular: Rate/Rhythm: regular rate and regular rhythm Heart Sounds: normal S1, normal S2 and + murmur (2/6 ejection systolic murmur over aortic area ) Gastrointestinal (Abdomen): Inspection/Auscultation: abdomen normal to inspection and normal bowel sounds Neurologic: Alert, awake and oriented x3 Results & Data Laboratory Results Short CBC 05/16/18 Range/Units 06:39 WBC 4.21 L (4.8-10.8) K/uL Hgb 11.0 L (14.0-18.0) g/dL Hct 34.1 L (42-52) % Plt Count 117 L (130-400) K/uL Medications Administered Current Inpatient Medications Acetaminophen (Tylenol) 650 mg PO Q4H PRN PRN Reason: Pain or Fever Stop: 06/13/18 22:40 Al Hydrox/Mg Hydrox/Simethicone (Maalox) 15 ml PO Q4H PRN PRN Reason: Dyspepsia Stop: 06/13/18 22:40 Albuterol (Duoneb) 3 ml NEB Q4R PRN PRN Reason: Shortness Of Breath Or Wheezing Stop: 06/14/18 15:59 Aspirin (Ecotrin Ectab) 81 mg PO DAILY [facility] Stop: 06/14/18 08:59 Last Admin: 05/16/18 08:36 Dose: 81 mg Dextrose (Dextrose 50%) 25 - 50 ml IV UD PRN; Protocol PRN Reason: Hypoglycemia Protocol Stop: 06/13/18 22:40 Duloxetine HCl (Cymbalta) 20 mg PO DAILY [facility] Stop: 05/21/18 09:01 Last Admin: 05/16/18 08:36 Dose: 20 mg Duloxetine HCl (Cymbalta) 20 mg PO Q2D@0900 [facility] Stop: 06/22/18 08:59 Fluticasone Propionate (Flonase) 2 sprays NA DAILY [facility] Stop: 06/14/18 08:59 Last Admin: 05/16/18 08:36 Dose: 2 sprays Gabapentin (Neurontin) 100 mg PO TID [facility] Stop: 06/14/18 08:59 Last Admin: 05/16/18 08:36 Dose: 100 mg Glucagon (Glucagen) 1 mg SQ UD PRN; Protocol PRN Reason: Hypoglycemia Protocol Stop: 06/13/18 22:40 Glucose (Glucose 40%) 15 - 30 gm PO UD PRN; Protocol PRN Reason: Hypoglycemia Protocol Stop: 06/13/18 22:40 Glucose (Dex4 Glucose) 4 - 8 tabs PO UD PRN; Protocol PRN Reason: Hypoglycemia Protocol Stop: 06/13/18 22:40 Hydralazine HCl (Apresoline) 25 mg PO TID [facility] Stop: 06/14/18 08:59 Last Admin: 05/16/18 08:36 Dose: 25 mg Heparin Sodium/Dextrose (Heparin Sodium/Dextrose) 25,000 units in 500 mls @ 25 mls/hr IV .[id number] [facility]; Protocol Stop: 06/13/18 23:09 Last Titration: 05/16/18 07:19 Dose: 1,250 units/hr, 25 mls/hr Insulin Aspart (Novolog Flexpen) 0 units SC ACHS [facility] Stop: 06/14/18 07:29 Last Admin: 05/16/18 08:37 Dose: 9 units Insulin Glargine (Lantus Solostar Pen) 0 - 20 units SC Q12 [facility] Stop: 06/13/18 22:40 Last Admin: 05/16/18 08:37 Dose: 10 units Isosorbide Dinitrate (Isordil) 20 mg PO TID@0700,1200,1700 [facility] Stop: 06/14/18 06:59 Last Admin: 05/16/18 08:36 Dose: 20 mg Magnesium Hydroxide (Milk Of Magnesia) 30 ml PO Q12H PRN PRN Reason: Constipation Stop: 06/13/18 22:40 Meclizine HCl (Antivert) 25 mg PO TID PRN PRN Reason: Dizziness Stop: 06/13/18 22:40 Metoprolol Succinate (Toprol Xl) 100 mg PO DAILY [facility] Stop: 06/14/18 08:59 Last Admin: 05/16/18 08:36 Dose: 100 mg Miscellaneous (Carbohydrates For Hypoglycemia) 15 - 30 gm PO UD PRN PRN Reason: Hypoglycemia Treatment Stop: 06/13/18 22:40 Miscellaneous (Order Awaiting Action) 1 ea N/A QS [facility] Stop: 06/14/18 07:59 Last Admin: 05/16/18 08:34 Dose: Not Given Ondansetron HCl (Zofran) 4 mg IV Q6H PRN PRN Reason: Nausea Stop: 06/13/18 22:40 Last Admin: 05/15/18 07:12 Dose: 4 mg Pantoprazole Sodium (Protonix) 40 mg PO DAILY [facility] Stop: 06/14/18 08:59 Last Admin: 05/16/18 08:36 Dose: 40 mg Polyethylene Glycol (Miralax Powder Packet) 17 gm PO DAILY PRN PRN Reason: Constipation Stop: 06/13/18 22:40 Rosuvastatin Calcium (Crestor) 40 mg PO DAILY [facility] Stop: 06/14/18 08:59 Last Admin: 05/16/18 08:36 Dose: 40 mg Vitamin D (Vitamin D3) 2,000 units PO DAILY [facility] Stop: 06/14/18 08:59 Last Admin: 05/16/18 08:37 Dose: 2,000 units Warfarin Sodium (Coumadin) 5 mg PO [id number]@1600 [facility] Stop: 06/13/18 22:40 Last Admin: 05/15/18 15:30 Dose: 5 mg Warfarin Sodium (Coumadin) 7.5 mg PO Robert@1600 [facility] Stop: 06/15/18 15:59 _ (1) Atrial fibrillation Atrial fibrillation type: chronic Qualified Code(s): I48.2 - Chronic atrial fibrillation (2) DM type 2 (diabetes mellitus, type 2) Diabetes mellitus retirement insulin use: with cnc machine operator use Diabetes mellitus complication status: with neurologic complications Diabetes mellitus complication detail: with unspecified neuropathy Diabetic retinopathy severity : Proliferative retinopathy type: Diabetes mellitus macular edema: Laterality: Chronic kidney disease stage: Qualified Code(s): E11.40 - Type 2 diabetes mellitus with diabetic neuropathy, unspecified; Z79.4 - FPC ( current) use of insulin (3) COPD (chronic obstructive pulmonary disease) COPD type: unspecified COPD Chronic bronchitis type: Emphysema type: Qualified Code(s): J44.9 - Chronic obstructive pulmonary disease, unspecified (4) GERD (gastroesophageal reflux disease) Esophagitis presence: esophagitis presence not specified Qualified Code(s): K21.9 - Gastro-esophageal reflux disease without esophagitis (5) Hypertension Hypertension type: essential hypertension Qualified Code(s): I10 - Essential (primary) hypertension (6) Diabetic neuropathy Diabetes mellitus type: type 2 Diabetes mellitus complication detail: with other neurological complication Qualified Code(s): E11.49 - Type 2 diabetes mellitus with other diabetic neurological complication
[2018-05-16 14:46] LABS: Partial Thromboplastin Ratio 1.9
[2018-05-16 14:50] LABS: Partial Thromboplastin Time 48.1 Seconds (21.0-31.0)
--- NOTE | 2018-05-16 15:55 | Pulmonology Progress Note ---
Date of Service May 16, 2018 Assessment & Plan (1) Acute kidney injury superimposed on CKD: Impression: 1. Dyspnea secondary to cardiac versus muscular fatigue. The patient has extensive cardiac history including cardiomyopathy, ejection fraction of 30%, AICD in place, moderate aortic stenosis, A. fib. 2. Given the fact the patient had influenza pneumonia a year ago, prolonged effect of post viral syndrome neuromuscular weakness can be extended for a year or so. Cannot be confirmed as an inpatient. 3. Nicotine abuse in the form of chewing tobacco, patient is lifetime non- smoker. 4. Sleep breathing disorder, could not tolerate positive pressure ventilation whatsoever. 5. Small left lower lobe pulmonary nodule measuring approximately 5 mm by the major fissure. Superior segment right lower lobe nodule measuring 3 mm. Plan: 1. The patient did have pulmonary function test in the past, I could not located, I have repeated the spirometry which showed FEV1 of 89%, FVC of 88%, ratio of 81%, FEF 25-75% is 85%. No evidence of obstructive lung disease. 2. Small pulmonary nodule noted on the left lower lobe, consider repeat CAT scan in 6-12 months. 3. In the event the patient continued to have shortness of breath, evaluation with CPXT as an outpatient can be done. 4. Concentration on his cardiorenal syndrome should have the priority in his management of his dyspnea. 5. Quit chewing tobacco, the risk is comparable to smoking cigarettes. 6. Discontinue bronchodilator. Thank you for the kind referral, will follow as needed. Subjective No new symptoms, shortness of breath continued with ambulation. Not using oxygen. Also saturation has been maintained at 98%. Physical Exam 2 Vital Signs (Past 24 Hours): Last Vital Signs Temp 36.8 C 05/16/18 11:23 Pulse 82 05/16/18 11:23 Resp 20 05/16/18 11:23 BP 108/69 05/16/18 11:23 Pulse Ox 98 05/16/18 11:23 Physical Exam: Vital signs are stable, S1-S2 A. fib, lungs are clear, abdomen is benign, no edema. Results & Data Laboratory Results Reviewed, stable CBC, PTT, elevated glucose. Diagnostic Findings CAT scan of the chest showed cardiomegaly, dilated pulmonary artery, small nodule in left lower lobe, splenomegaly.
[2018-05-16] MEDS ORDERED: WARFARIN SOD 7.5 MG TAB PO SCH (16:00)
[2018-05-16] MEDS ORDERED: WARFARIN SOD 2.5 MG TAB PO SCH (16:00)
[2018-05-17 06:46] LABS: INR 1.8 (0.9-1.1); Partial Thromboplastin Ratio 2.1; Prothrombin Time 17.5 Seconds (9.0-12.0)
[2018-05-17 07:00] LABS: BUN Creatinine Ratio 15.7 (10-20); Calcium 8.7 mg/dl (8.5-10.1); Creatinine Clr Calc Pharmacy 27.2 ml/min; Magnesium 2.3 mg/dl (1.8-2.4); Potassium 3.9 mmol/L (3.5-5.1)
[2018-05-17 07:19] LABS: Partial Thromboplastin Time 54.1 Seconds (21.0-31.0)
[2018-05-17] MEDS: ASPIRIN 81 MG ECTAB PO SCH (08:38)
[2018-05-17] MEDS: ISOSORBIDE DINITRATE 10 MG TAB PO SCH ×2 (08:38→12:29)
[2018-05-17] MEDS: DULOXETINE HCL 20 MG CAP PO SCH (08:38)
[2018-05-17] MEDS: FLUTICASONE PROPIONATE NA SPR 16 GM BTL SCH (08:38)
[2018-05-17] MEDS: ROSUVASTATIN CALCIUM 20 MG TAB PO SCH (08:38)
[2018-05-17] MEDS: GABAPENTIN 100 MG CAP PO SCH ×2 (08:38→13:52)
[2018-05-17] MEDS: PANTOprazole 40 MG TAB PO SCH (08:39)
[2018-05-17] MEDS: INSULIN GLARGINE SOLOSTAR 100 UNITS/ML 3 ML PEN SC SCH (08:39)
[2018-05-17] MEDS: METOPROLOL SUCC 50MG EXT REL TAB PO SCH (08:39)
[2018-05-17] MEDS: CHOLECALCIFEROL 1,000 UNITS TAB PO SCH (08:39)
[2018-05-17] MEDS: INSULIN ASPART 100 UNITS/ML 3 ML PEN SC SCH ×2 (08:40→12:29)
--- NOTE | 2018-05-17 11:16 | Hospitalist Progress Note ---
Date of Service May 17, 2018 Assessment & Plan (1) SOB (shortness of breath): -SOB most likely multi factorial in etiology given S-CHF, , COPD -obtain d-dimer-400 -Had PFT 2016 mild obstruction on approp therapy, no significant wheezing on exam, COPD exac less likely -outpatient PCP recommending sleep medicine evaluation -consult pulmonology, appreciate their input -He has been continuing to chew tobacco -We will need outpatient pulmonary workup and pulmonary follow-up -Clinically better today -Continue current medication -CAT scan did not show any evidence of COPD/pneumonia and/or CHF -Outpatient appointment with the trim carpenter will be arranged -Advised to use inhalers only as needed for wheezing (2) Dizziness: -symptoms/exam most consistent with peripheral vertigo vs orthostasis given PAM and initial hypotension vs polypharmacy vs hypoxia vs other etiology -May have autonomic neuropathy secondary to diabetes -CT brain noted -check orthostatics -Blood pressure has been normalized -Denies any more dizziness (3) Acute kidney injury superimposed on CKD: This is a 63 y/o M with PMH non-ischemic cardiomyopathy, s/p pacemaker, atrial fibrillation on coumadin, COPD, DM II, 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 -admit to telemetry under observation -baseline Cr 2.8, today 3.5 most likely in setting of torsemide/po intake -received 500mL bolus in ED -gentle IV hydration NS 50cc/hr -Creatinine 3.5 to 05/15, not worse since admission -Creatinine remains more than 3 as of today-05/16 -Creatinine stable at 3.26 as of today-05/17 (4) Chronic systolic (congestive) heart failure: -echocardiogram 01/2018 EF 45% -baseline weight 227, 233 today -daily weights, strict I and O, Low Na diet -patient currently euvolemic -continue metoprolol, holding torsemide in setting of PAM -previously admitted 04/13 for CHF Exac, cardiology was on board previous admission, felt Dyspnea not cardiac in origin and at that time recommending pulmonary evaluation -We will continue current dose of diuretics as an outpatient (5) Atrial fibrillation: -continue metoprolol for rate/rhythm control; pacemaker -continue warfarin -INR subtherapeutic, will bridge with heparin -Monitor INR -We will have coagulation clinic appointment tomorrow-05/09 (6) DM type 2 (diabetes mellitus, type 2): -A1C 10.2 12/29/17 -obtain A1C in a.m. -Lantus 0-20 unit SQ q12hr -novolog per protocol -titrate accordingly -Home regimen is Lantus 52 Units SQ HS; Humalog 7units with breakfast and 10 units Lunch and Dinner (7) COPD (chronic obstructive pulmonary disease): -Mild obstructive pattern on PFTs done 2016 -continue Breo -Spiriva added at outpt follow up on 05/07/18, will hold while inpatient and use duoneb qid -Continues to chew tobacco -Will need outpatient pulmonary function test in detail (8) Aortic stenosis, moderate: (9) GERD (gastroesophageal reflux disease): -continue PPI (10) Chronic anemia: -secondary to CKD stage 4, normocytic, normochromic -H/H stable at 11.8/36.1; 11/34.1 on 05/17 (11) Hypertension: -blood pressure low upon EMS arrival -s/p IVF now 151/80 -continue hydralazine and metoprolol, will hold torsemide for now -monitor (12) Dyslipidemia: -continue crestor (13) Diabetic neuropathy: -gabapentin 100mg tid -weaning off cymbalta recently completed 40mg daily x 7 days, now 20mg daily for 7 days, THEN 20mg Cap every other day for 7 days. -We will check orthostasis -May have diabetic neuropathy (14) Presence of combination internal cardiac defibrillator (ICD) and pacemaker : -pacer interrogated 04/2018 -[facility] [place] [facility] (15) DVT prophylaxis: -continue warfarin, INR 1.6 will bridge with heparin -warfarin 2.5mg Sun, 5mg all other days Disposition: D/C to home when able Follow up: with PCP Dr Henning upon discharge Discharged today Subjective This is a 63 y/o M with PMH non-ischemic cardiomyopathy, s/p dual-chamber ICD, atrial fibrillation on coumadin, COPD, DM II, chronic systolic 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 05/15 The patient was seen and examined in telemetry unit His breathing is much better following admission Still complains of shortness of breath on exertion but no chest pain His blood pressure is improved 05/16 The patient was seen and examined in telemetry unit Shortness of breath is better at rest Minimal shortness of breath on exertion CT of the chest did not show any COPD and/or CHF A small nodule that has to be followed up in about 1 year and CAT scan 05/17 Patient was seen and examined in medical telemetry He has had some nonspecific chest pain last night but denies any other symptoms He has been ambulating well He will be discharged today Physical Exam 2 Vital Signs (Past 24 Hours): Last Vital Signs Temp 36.7 C 05/17/18 07:31 Pulse 60 05/17/18 08:00 Resp 16 05/17/18 07:31 BP 150/71 H 05/17/18 07:31 Pulse Ox 97 05/17/18 07:31 Constitutional: WD/WN, vitals as above Eyes: PERRL, conjunctivae normal, anicteric sclerae ENMT: external ear and nose normal, oropharynx normal Neck: trachea midline, no thyromegaly Respiratory: normal respiratory effort; no respiratory distress and no labored breathing Auscultation: + diminished lung sounds; no crackles and no wheezes (Minimal wheezing) Cardiovascular: Rate/Rhythm: regular rate and regular rhythm Heart Sounds: normal S1, normal S2 and + murmur (2/6 ejection systolic murmur over aortic area ) Gastrointestinal (Abdomen): Inspection/Auscultation: abdomen normal to inspection and normal bowel sounds Neurologic: PERRL, EOMI, accommodation nl, no face palsy, no dysarthria Results & Data Laboratory Results [facility] 05/17/18 06:08 Sodium 140 Potassium 3.9 Chloride 105 Carbon Dioxide 29 BUN 51 H Creatinine 3.26 H Glucose 114 H Calcium 8.7 Medications Administered Current Inpatient Medications Acetaminophen (Tylenol) 650 mg PO Q4H PRN PRN Reason: Pain or Fever Stop: 06/13/18 22:40 Al Hydrox/Mg Hydrox/Simethicone (Maalox) 15 ml PO Q4H PRN PRN Reason: Dyspepsia Stop: 06/13/18 22:40 Albuterol (Duoneb) 3 ml NEB Q4R PRN PRN Reason: Shortness Of Breath Or Wheezing Stop: 06/14/18 15:59 Aspirin (Ecotrin Ectab) 81 mg PO DAILY [facility] Stop: 06/14/18 08:59 Last Admin: 05/17/18 08:38 Dose: 81 mg Dextrose (Dextrose 50%) 25 - 50 ml IV UD PRN; Protocol PRN Reason: Hypoglycemia Protocol Stop: 06/13/18 22:40 Duloxetine HCl (Cymbalta) 20 mg PO DAILY [facility] Stop: 05/21/18 09:01 Last Admin: 05/17/18 08:38 Dose: 20 mg Duloxetine HCl (Cymbalta) 20 mg PO Q2D@0900 [facility] Stop: 06/22/18 08:59 Fluticasone Propionate (Flonase) 2 sprays NA DAILY [facility] Stop: 06/14/18 08:59 Last Admin: 05/17/18 08:38 Dose: 2 sprays Gabapentin (Neurontin) 100 mg PO TID [facility] Stop: 06/14/18 08:59 Last Admin: 05/17/18 08:38 Dose: 100 mg Glucagon (Glucagen) 1 mg SQ UD PRN; Protocol PRN Reason: Hypoglycemia Protocol Stop: 06/13/18 22:40 Glucose (Glucose 40%) 15 - 30 gm PO UD PRN; Protocol PRN Reason: Hypoglycemia Protocol Stop: 06/13/18 22:40 Glucose (Dex4 Glucose) 4 - 8 tabs PO UD PRN; Protocol PRN Reason: Hypoglycemia Protocol Stop: 06/13/18 22:40 Hydralazine HCl (Apresoline) 25 mg PO TID [facility] Stop: 06/14/18 08:59 Last Admin: 05/17/18 08:38 Dose: 25 mg Heparin Sodium/Dextrose (Heparin Sodium/Dextrose) 25,000 units in 500 mls @ 25 mls/hr IV .[id number] [facility]; Protocol Stop: 06/13/18 23:09 Last Titration: 05/17/18 07:35 Dose: 1,250 units/hr, 25 mls/hr Insulin Aspart (Novolog Flexpen) 0 units SC ACHS [facility] Stop: 06/14/18 07:29 Last Admin: 05/17/18 08:40 Dose: 8 units Insulin Glargine (Lantus Solostar Pen) 0 - 20 units SC Q12 [facility] Stop: 06/13/18 22:40 Last Admin: 05/17/18 08:39 Dose: Not Given Isosorbide Dinitrate (Isordil) 20 mg PO TID@0700,1200,1700 [facility] Stop: 06/14/18 06:59 Last Admin: 05/17/18 08:38 Dose: 20 mg Magnesium Hydroxide (Milk Of Magnesia) 30 ml PO Q12H PRN PRN Reason: Constipation Stop: 06/13/18 22:40 Meclizine HCl (Antivert) 25 mg PO TID PRN PRN Reason: Dizziness Stop: 06/13/18 22:40 Metoprolol Succinate (Toprol Xl) 100 mg PO DAILY [facility] Stop: 06/14/18 08:59 Last Admin: 05/17/18 08:39 Dose: 100 mg Miscellaneous (Carbohydrates For Hypoglycemia) 15 - 30 gm PO UD PRN PRN Reason: Hypoglycemia Treatment Stop: 06/13/18 22:40 Miscellaneous (Order Awaiting Action) 1 ea N/A QS [facility] Stop: 06/14/18 07:59 Last Admin: 05/17/18 08:36 Dose: Not Given Ondansetron HCl (Zofran) 4 mg IV Q6H PRN PRN Reason: Nausea Stop: 06/13/18 22:40 Last Admin: 05/15/18 07:12 Dose: 4 mg Pantoprazole Sodium (Protonix) 40 mg PO DAILY [facility] Stop: 06/14/18 08:59 Last Admin: 05/17/18 08:39 Dose: 40 mg Polyethylene Glycol (Miralax Powder Packet) 17 gm PO DAILY PRN PRN Reason: Constipation Stop: 06/13/18 22:40 Rosuvastatin Calcium (Crestor) 40 mg PO DAILY [facility] Stop: 06/14/18 08:59 Last Admin: 05/17/18 08:38 Dose: 40 mg Vitamin D (Vitamin D3) 2,000 units PO DAILY [facility] Stop: 06/14/18 08:59 Last Admin: 05/17/18 08:39 Dose: 2,000 units Warfarin Sodium (Coumadin) 5 mg PO [id number]@1600 [facility] Stop: 06/13/18 22:40 Last Admin: 05/15/18 15:30 Dose: 5 mg Warfarin Sodium (Coumadin) 7.5 mg PO Robert@1600 [facility] Stop: 06/15/18 15:59 Last Admin: 05/16/18 17:06 Dose: 7.5 mg _ (1) Diabetic neuropathy Diabetes mellitus complication detail: with other neurological complication Diabetes mellitus type: type 2 Qualified Code(s): E11.49 - Type 2 diabetes mellitus with other diabetic neurological complication (2) DM type 2 (diabetes mellitus, type 2) Chronic kidney disease stage: Diabetes mellitus complication detail: with unspecified neuropathy Diabetes mellitus complication status: with neurologic complications Diabetes mellitus manager intermediate insulin use: with skilled nursing use Diabetes mellitus macular edema: Diabetic retinopathy severity: Laterality: Proliferative retinopathy type: Qualified Code(s): E11.40 - Type 2 diabetes mellitus with diabetic neuropathy, unspecified; Z79.4 - shelter (current) use of insulin (3) Atrial fibrillation Atrial fibrillation type: chronic Qualified Code(s): I48.2 - Chronic atrial fibrillation (4) COPD (chronic obstructive pulmonary disease) COPD type: unspecified COPD Chronic bronchitis type: Emphysema type: Qualified Code(s): J44.9 - Chronic obstructive pulmonary disease, unspecified (5) GERD (gastroesophageal reflux disease) Esophagitis presence: esophagitis presence not specified Qualified Code(s): K21.9 - Gastro-esophageal reflux disease without esophagitis (6) Hypertension Hypertension type: essential hypertension Qualified Code(s): I10 - Essential (primary) hypertension
[2018-05-17] MEDS ORDERED: ENOXAPARIN 100 MG/1ML SYR SQ ONE (11:28)
--- NOTE | 2018-05-17 17:06 | Discharge Summary ---
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 Of note this is the patients 4th presentation for similar sx since 01/2018. Most recently confined 04/29/18-- secondary to SOB, felt to be due to COPD exac as oppose to CHF. He presents today due to waking up with extreme dizziness, described as spinning sensation, worse with head movement, associated with nausea, emesis, SOB. SOB is described as at rest with dizziness, feels like he is huffing and puffing, and TESFAYE. Has chronic moist cough, occasional morris productive sputum with wheezing. He uses 2L at HS, "not because I need it but because I like to use it to sleep." Occasionally wakes up in the middle of the night gasping for air but no orthopnea. Unable to sleep on back so sleeps on side with 1-2 pillows. Denies significant weight gain or edema, baseline weight 227. He recently had hospital f/u with PCP who was recommending outpt sleep medicine evaluation given continued SOB. Also his cymbalta is being tapered. He denies any f/c/s, lightheaded, syncope, URI sx, chest pain, hemoptysis, abd pain, diarrhea, dysuria, hematuria, melena. No family members at bedside. Admission Exam Per Admitting Provider Vital Signs (Past 24 Hours): Last Vital Signs Temp 36.8 C 05/14/18 16:14 Pulse 60 05/14/18 19:19 Resp 10 L 05/14/18 17:20 BP 151/81 H 05/14/18 19:19 Pulse Ox 95 05/14/18 19:19 Physical Exam: Gen: Obese, M, appears older than age, excessive facial hair , NAD, sitting up in bed, pleasant, conversing easily Head: Normocephalic, Atraumatic Eyes: Sclera normal, no conjunctival injection, PERRLA, EOMI, no nystagmus, dizziness reproduced with EOMI ENT: Gross hearing intact, normal pharynx, mucous membranes moist Neck: supple, no adenopathy, No JVD, no bruit, Resp: Clear to auscultation b/l, no wheeze, rales, rhonchi. Normal insp/exp effort, no accessory muscle use CV: Regular rate, regular rhythm, 2/6 KACIE noted RUSB, no rub, gallop, or ectopy , pacer/aicd LACW Abd: +obese, +BS x 4, soft, nontender, nondistended Musculoskeletal: moves extremities active rom x 4, strength intact, good thermal cutter hand strength Extremities: No edema bilaterally Skin: warm, moist, no rash, negative turgor, cap refill < 2sec Neuro: Alert and oriented x 3, speech normal, good mood/affect, cran nerve 2-12 intact grossly, dizziness reproduced with quick head movements b/l but L>R : deferred Principal Diagnosis Shortness of breath-multifactorial, no definitive COPD on CAT scan, CKD, atrial fibrillation, CHF, diabetes type 2 Discharge Exam Constitutional WD/WN, vitals as above Eyes PERRL, conjunctivae normal, anicteric sclerae ENMT external ear and nose normal, oropharynx normal Neck trachea midline, no thyromegaly Respiratory normal respiratory effort; no respiratory distress and no labored breathing Auscultation: + diminished lung sounds; no crackles and no wheezes (Minimal wheezing) Cardiovascular Rate/Rhythm: regular rate and regular rhythm Heart Sounds: normal S1, normal S2 and + murmur (2/6 ejection systolic murmur over aortic area) Gastrointestinal (Abdomen) Inspection/Auscultation: abdomen normal to inspection and normal bowel sounds Neurologic PERRL, EOMI, accommodation nl, no face palsy, no dysarthria Discharge Data Allergies Allergy/AdvReac Type Severity Reaction Status Date / Time No Known Allergies Allergy Verified 04/29/18 19:45 Consultations 05/14/18 19:08 ED Decision to Admit Stat 05/14/18 22:41 Consult Pulmonology Routine Ordered Studies 05/14/18 16:41 CT head/brain wo con Stat 05/15/18 10:45 CT chest wo con Urgent Hospital Course (1) SOB (shortness of breath): -SOB most likely multi factorial in etiology given S-CHF, , COPD -obtain d-dimer-400 -Had PFT 2016 mild obstruction on approp therapy, no significant wheezing on exam, COPD exac less likely -outpatient PCP recommending sleep medicine evaluation -consult pulmonology, appreciate their input -He has been continuing to chew tobacco -We will need outpatient pulmonary workup and pulmonary follow-up -Clinically better today -Continue current medication -CAT scan did not show any evidence of COPD/pneumonia and/or CHF -Outpatient appointment with the substation operator conversion will be arranged -Advised to use inhalers only as needed for wheezing (2) Dizziness: -symptoms/exam most consistent with peripheral vertigo vs orthostasis given PAM and initial hypotension vs polypharmacy vs hypoxia vs other etiology -May have autonomic neuropathy secondary to diabetes -CT brain noted -check orthostatics -Blood pressure has been normalized -Denies any more dizziness (3) Acute kidney injury superimposed on CKD: This is a 63 y/o M with PMH non-ischemic cardiomyopathy, s/p pacemaker, atrial fibrillation on coumadin, COPD, DM II, 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 -admit to telemetry under observation -baseline Cr 2.8, today 3.5 most likely in setting of torsemide/po intake -received 500mL bolus in ED -gentle IV hydration NS 50cc/hr -Creatinine 3.5 to 05/15, not worse since admission -Creatinine remains more than 3 as of today-05/16 -Creatinine stable at 3.26 as of today-05/17 (4) Chronic systolic (congestive) heart failure: -echocardiogram 01/2018 EF 45% -baseline weight 227, 233 today -daily weights, strict I and O, Low Na diet -patient currently euvolemic -continue metoprolol, holding torsemide in setting of PAM -previously admitted 04/13 for CHF Exac, cardiology was on board previous admission, felt Dyspnea not cardiac in origin and at that time recommending pulmonary evaluation -We will continue current dose of diuretics as an outpatient (5) Atrial fibrillation: -continue metoprolol for rate/rhythm control; pacemaker -continue warfarin -INR subtherapeutic, will bridge with heparin -Monitor INR -We will have coagulation clinic appointment tomorrow-05/09 (6) DM type 2 (diabetes mellitus, type 2): -A1C 10.2 12/29/17 -obtain A1C in a.m. -Lantus 0-20 unit SQ q12hr -novolog per protocol -titrate accordingly -Home regimen is Lantus 52 Units SQ HS; Humalog 7units with breakfast and 10 units Lunch and Dinner (7) COPD (chronic obstructive pulmonary disease): -Mild obstructive pattern on PFTs done 2016 -continue Breo -Spiriva added at outpt follow up on 05/07/18, will hold while inpatient and use duoneb qid -Continues to chew tobacco -Will need outpatient pulmonary function test in detail (8) Aortic stenosis, moderate: (9) GERD (gastroesophageal reflux disease): -continue PPI (10) Chronic anemia: -secondary to CKD stage 4, normocytic, normochromic -H/H stable at 11.8/36.1; 11/34.1 on 05/17 (11) Hypertension: -blood pressure low upon EMS arrival -s/p IVF now 151/80 -continue hydralazine and metoprolol, will hold torsemide for now -monitor (12) Dyslipidemia: -continue crestor (13) Diabetic neuropathy: -gabapentin 100mg tid -weaning off cymbalta recently completed 40mg daily x 7 days, now 20mg daily for 7 days, THEN 20mg Cap every other day for 7 days. -We will check orthostasis -May have diabetic neuropathy (14) Presence of combination internal cardiac defibrillator (ICD) and pacemaker : -pacer interrogated 04/2018 -follows [facility] [address] cardiology (15) DVT prophylaxis: -continue warfarin, INR 1.6 will bridge with heparin -warfarin 2.5mg Sun, 5mg all other days Disposition: D/C to home when able Follow up: with PCP Dr Henning upon discharge Discharged today Total Time Total Time Spent Total Time Spent (In Minutes): 35 minutes Total Time Includes: Examination of the Patient, Discharge Planning, Medication Reconciliation and Communication With Other Providers Discharge Plan Discharge Items Patient Disposition: Home - Self-Care Reason For Visit: PAM, SOB, DIZZINESS Discharge Diagnosis: Shortness of breath-multifactorial, no definitive COPD on CAT scan, CKD, atrial fibrillation, CHF, diabetes type 2 Condition: Fair Discharge Goals: Decrease discomfort, Improve disease control and Improve function Activity: Resume your previous activity Non-emergency contact: Primary Care Provider Call non-emergency contact if: you have any medication questions and your symptoms worsen Follow-up/Referrals: Mabel Butts MD [Primary Care Provider] - 05/20/18 11:05 am (You have appointment with coagulation clinic tomorrow that is 05/18. Please keep appointment with the glass installer technician and application coordinator. Appointment with substation operator conversion will be arranged to eventually.) Diet: Carb Consistent or DM2 and Heart Healthy Fluids: 1500ml (6 cups) Addtl Provider Instructions: Please stop chewing tobacco Prescriptions: New hydralazine 25 mg Tablet 25 mg PO TID 30 Days Qty: 90 RF: 0 Continue isosorbide dinitrate 10 mg Tablet 20 mg PO TID RF: 0 metoprolol succinate [Toprol XL] 100 mg Tablet Extended Release 24 Hr 100 mg PO DAILY RF: 0 aspirin 81 mg Tablet,Delayed Release (Dr/Ec) 81 mg PO DAILY RF: 0 meclizine 25 mg Tablet 25 mg PO TID PRN (Reason: Dizziness) RF: 0 pantoprazole [Protonix] 40 mg Tablet,Delayed Release (Dr/Ec) 40 mg PO DAILY RF: 0 warfarin 5 mg Tablet 2.5 mg PO THOMAS RF: 0 warfarin [Coumadin] 5 mg Tablet 5 mg PO [id number] RF: 0 albuterol sulfate [ProAir HFA] 90 mcg/actuation Hfa Aerosol Inhaler 2 puff INHALATION Q4H PRN (Reason: sob) RF: 0 fluticasone [Flonase Allergy Relief] 50 mcg/actuation Pavo,Suspension 2 spray INTRANASAL DAILY RF: 0 insulin lispro [Humalog KwikPen Insulin] 100 unit/mL Insulin Pen 7 units SUBCUT QAM RF: 0 insulin lispro [Humalog KwikPen Insulin] 100 unit/mL Insulin Pen 10 unit SUBCUT BID RF: 0 rosuvastatin [Crestor] 40 mg Tablet 40 mg PO DAILY RF: 0 insulin glargine [Lantus Solostar U-100 Insulin] 100 unit/mL (3 mL) Insulin Pen 52 units SUBCUT HS RF: 0 cholecalciferol (vitamin D3) [Vitamin D3] 2,000 unit Capsule 2,000 unit PO DAILY RF: 0 duloxetine 20 mg Capsule,Delayed Release(Dr/Ec) 20 mg PO DAILY RF: 0 gabapentin 100 mg Capsule 100 mg PO TID RF: 0 Discontinued ipratropium-albuterol 0.5 mg-3 mg(2.5 mg base)/3 mL solution for nebulization 3 ml Inhalation QID RF: 0 fluticasone-vilanterol [Breo Ellipta] 100-25 mcg/dose Blister With Device 1 inh INHALATION DAILY RF: 0 tiotropium bromide [Spiriva with HandiHaler] 18 mcg Capsule, W/Inhalation Device 1 cap INHALATION DAILY RF: 0 Stand-Alone Forms: [facility], [facility] Discharge Orders: Discharge Order (Routine); Ordered 05/17/18 Ordered By: Paola Avalos Admission Data Admit Date/Time: 05/14/18 21:51 Attending Provider: Paola Avalos Admit Provider: Yovanny Desai Primary Care Provider: Mabel Butts Other Providers: Yovanny Desai ; Will Dejesus Service: Telemetry Other Interventions: Discharge Summary Assessment (RN) Last Done: 05/17/18 12:08 DC Date/Time DO NOT enter until pt leaves facility: 05/17/18 14:30
[2018-05-23] MEDS ORDERED: DULOXETINE HCL 20 MG CAP PO SCH (09:00)
== END 2018-05-17 14:30 | disposition home or self-care (01) ==
LOC: ED 16:24 → 2N 16:24

== ENCOUNTER 2018-05-20 10:10 | Inpatient (IN) ==
[2018-05-20] MEDS ORDERED: SODIUM CHLORIDE 0.9% 500 ML IV SCH (10:30)
[2018-05-20 10:35] LABS: Basophils # (auto) 0.01 K/uL (0-0.2); Basophils % (auto) 0.2 %; Eosinophils # (auto) 0.16 K/uL (0-0.5); Eosinophils % (auto) 2.6 %; Hematocrit (blood only) 37.3 % (42-52); Hemoglobin 12.5 g/dL (14.0-18.0); Immature Granulocytes # (auto) 0.03 K/uL (0.00-0.02); Immature Granulocytes % (auto) 0.5 %; Lymphocytes # (auto) 0.97 K/uL (1.2-3.4); Lymphocytes % (auto) 15.6 %; Mean Corpuscular Hgb Conc 33.5 g/dL (32-36); Mean Platelet Volume 9.4 fL (7.4-10.4); Monocytes # (auto) 0.52 K/uL (0.11-0.59); Monocytes % (auto) 8.3 %; Neutrophils # (auto) 4.54 K/uL (1.4-6.5); Neutrophils % (auto) 72.8 %; Platelet Count 129 K/uL (130-400); RDW Coefficient of Variation 13.6 % (11.5-14.5); RDW Standard Deviation 40.9 fL (36.4-46.3); Red Blood Count 4.55 M/uL (4.7-6.1); White Blood Count 6.23 K/uL (4.8-10.8)
--- NOTE | 2018-05-20 10:44 | XRay Report ---
XR chest 1V portable CLINICAL HISTORY: Chest Pain pain COMPARISON STUDY: 05/14/2017 FINDINGS: Mild stable cardiomegaly. Cardiac pacemaker in good position. No evidence pneumothorax. Alejandro gs are considered clear. Diaphragms are smooth. IMPRESSION: Mild stable cardiomegaly. Otherwise negative study. The above report was generated using voice recognition software. It may contain grammatical, syntax or spelling errors. Electronically signed by: Billy Phillips M.D. 05/20/2018 10:43 AM
[2018-05-20 10:58] LABS: Albumin Level 3.4 gm/dl (3.4-5.0); BUN Creatinine Ratio 14.3 (10-20); Calcium 9.5 mg/dl (8.5-10.1); Creatinine Clr Calc Pharmacy 27.7 ml/min; Est GFR (African American) 22.7; Est GFR (Non-African American) 19.6
[2018-05-20 11:03] LABS: Albumin Globulin Ratio 0.9 (0.9-2); Bilirubin,Total 0.5 mg/dl (0.2-1); Globulin 3.6 gm/dl (2.5-4.0); Troponin I 0.039 ng/ml (0-0.045)
[2018-05-20 11:06] LABS: INR 1.6 (0.9-1.1); Prothrombin Time 15.4 Seconds (9.0-12.0)
[2018-05-20] MEDS ORDERED: ACETAMINOPHEN 325 MG TAB PO PRN (14:07)
[2018-05-20] MEDS ORDERED: POLYETHYLENE (MIRALAX) 17 GM PACK PO PRN (14:07)
--- NOTE | 2018-05-20 15:12 | History & Physical Report ---
Date of Service May 20, 2018 Assessment & Plan (1) Volume depletion: (2) Dizziness: This is a 63 year old M with PMH non-ischemic cardiomyopathy with chronic systolic CHF (EF 45-50% in Feb 04), s/p pacemaker, atrial fibrillation (on coumadin), DM II, CAD without obstruction (on cardiac cath 06/2016), moderate aortic stenosis, HTN, HLD, CKD IV, chronic anemia, chronic thrombocytopenia and GERD who presents from cardiology clinic with continued dizziness and hypotension. -Several admissions within 2018 with similar presentation -Likely multifactorial with ddx orthostasis vs vertigo vs hypoxia -BP improved to 169/98 in ED after receiving 500cc of NSS -Underwent ICD interrogation this morning, which was unremarkable -Discussed obtaining orthostatic vitals at varying times with nursing -Cardiology consulted for medication adjustment * Currently receiving hydralazine 25mg, Isordil 10mg and Toprol 100mg, Torsemide 10mg MoWeFr * Will hold diuretics for now, monitor daily weight and BPs -Pulmonary service recently consulted for dizziness/ dyspnea on exertion and do not believe patient has obstructive lung disease -Has tried meclizine in the past without alleviation of symptoms -Neurology consulted. Recommended CTA head and neck to evaluate vessels but will hold off now due to kidney function. Head CT wo contrast performed on wnl. Consider MRI brain if PM compatible with MRI -PT for Riri rule out element of vertigo (3) Acute kidney injury superimposed on CKD: Creatinine elevated from baseline of 2.85 to 3.17 -Hold torsemide for now -Received 500 mL NSS in ED -Repeat BMP in AM -Nephro consulted (4) Nonischemic cardiomyopathy: (5) Chronic systolic (congestive) heart failure: Euvolemic to dry on exam -Torsemide recently decreased to 10mg MoWeFr -Recent Echo from 02/04 with improved EF of 40-45% -Daily weights -Continue Toprol, Isordil (6) Nocturnal hypoxia: Wears 2L NC 02 at night -Awaiting out-patient sleep study - notices periods of apnea during the day (7) Thrombocytopenia: At baseline ~120s -Monitor with daily CBC (8) Chronic anemia: In setting of CKD IV, normocytic, normochromic -H/H at baseline (9) DM type 2 (diabetes mellitus, type 2): A1c of -Home regimen is Lantus 52 Units SQ HS; Humalog 7u with breakfast and 10 u lunch and dinner -Basal/bolus regimen per protocol -BSG AC HS (10) CAD (coronary artery disease): Non-obstructive on 2016 cardiac cath -Continue aspirin, statin (11) Diabetic neuropathy: Cymbalta recently trialed and discontinued -Was just restarted on gabapentin 100mg TID (12) Atrial fibrillation: Paced rhythm -Continue Toprol for rate control -Continue warfarin. INR subtherapeutic at 1.6. Bridge with low dose heparin (13) Presence of combination internal cardiac defibrillator (ICD) and pacemaker : (14) Aortic stenosis: DVT Ppx: Continue coumadin Code status: FULL PCP: Benjamín Dispo: Admitted to med/surg. Transfer to telemetry if indicated. Discharge planning ordered. Patient seen in collaboration with Dr. Desai. Please see addendum. History of Present Illness Chief Complaint: Lightheadedness Primary Care Provider: Mabel Butts This is a 63 year old M with PMH non-ischemic cardiomyopathy with chronic systolic CHF (EF 45-50% in Feb 04), s/p pacemaker, atrial fibrillation (on coumadin), DM II, CAD without obstruction (on cardiac cath 06/2016), moderate aortic stenosis, HTN, HLD, CKD IV, chronic anemia, chronic thrombocytopenia and GERD who presents from cardiology clinic with continued dizziness and hypotension. Had presented for pacemaker interrogation and was complaining of dizziness and intermittent shortness of breath. Vitals were checked and SBP was 70 and then 90 on recheck. Had taken morning doses of hydralazine 25mg, Isordil 10mg and Toprol 100mg prior to appointment. Was directed from cardiology clinic to the ED for further evaluation. Patient has been admitted multiple times since January 2018 for similar symptoms of intermittent shortness of breath and dizziness. Describes dizziness as a lightheaded feeling with blurred vision and occasional room spinning. Occurs when patient sits up or is exerting himself physically, like walking to the restroom. Denies feeling of dizziness with repositioning while lying down. Has tried meclizine in the past without alleviation. During most recent hospitalization (with discharge on 05/17/18), patient was evaluated by both cardiology and pulmonology for symptoms. Cardiology service decreased the frequency of Torsemide 10mg on Thursday, Thursday, Thursday. Pulmonology felt that dyspnea was secondary to cardiac vs muscular fatigue. May also be a component of prolonged effect of post viral syndrome neuromuscular weakness from influenza last year. No evidence of obstructive lung disease on PFTs, so bronchodilators were discontinued. Patient received 500cc of NSS in ED prior to my exam but was still experiencing lightheadedness and blurred vision with movement. Vital signs stable. Creatinine elevated from baseline of 2.85 to 3.17. INR is 1.8. Has been wearing 2L NC O2 at night for noctural hypoxemia. Awaiting out-patient sleep study. ICD interrogation performed earlier today demonstrates normal function. states that patient is very sedentary at baseline and becomes symptomatic with any type of movement. Allergies Allergy/AdvReac Type Severity Reaction Status Date / Time No Known Allergies Allergy Verified 05/20/18 10:41 Home Medications Home Medications Medication Instructions Recorded Confirmed Type aspirin 81 mg PO DAILY 02/05/18 05/20/18 History cholecalciferol (vitamin D3) 2,000 unit PO DAILY 02/05/18 05/20/18 History [Vitamin D3] insulin glargine [Lantus Solostar 52 units SUBCUT HS 02/05/18 05/20/18 History U-100 Insulin] insulin lispro [Humalog KwikPen 7 units SUBCUT QAM 02/05/18 05/20/18 History Insulin] insulin lispro [Humalog KwikPen 14 unit SUBCUT BID 02/05/18 05/20/18 History Insulin] isosorbide dinitrate 20 mg PO TID 02/05/18 05/20/18 History metoprolol succinate [Toprol XL] 100 mg PO DAILY 02/05/18 05/20/18 History pantoprazole [Protonix] 40 mg PO DAILY 02/05/18 05/20/18 History rosuvastatin [Crestor] 40 mg PO HS 02/05/18 05/20/18 History warfarin 5 mg PO MOTUWETHFRSA@1600 02/05/18 05/20/18 History warfarin [Coumadin] 2.5 mg PO THOMAS@1600 02/05/18 05/20/18 History gabapentin 100 mg PO TID 05/14/18 05/20/18 History hydralazine 25 mg PO TID 05/20/18 05/20/18 History torsemide 10 mg PO MOWEFR 05/20/18 05/20/18 History Past Med/Surg History Medical History Diabetic neuropathy (Chronic) Chronic systolic (congestive) heart failure (Chronic) Aortic stenosis (Chronic) Nocturnal hypoxia (Chronic) on 2L NC O2 HS GERD (gastroesophageal reflux disease) (Chronic) Thrombocytopenia (Chronic) Chronic anemia (Chronic) Asthma (Chronic) DM type 2 (diabetes mellitus, type 2) (Chronic) Dyslipidemia (Chronic) Hypertension (Chronic) CAD (coronary artery disease) (Chronic) "nonobstructive" Nonischemic cardiomyopathy (Chronic) "EF 40-45% with mod on 02/04" LBBB (left bundle branch block) (Chronic) Atrial fibrillation (Chronic) on chronic anticoagulation Surgical History H/O cardiac catheterization (Chronic) Non nonobstructive CAD on 2016 cardiac cath Presence of combination internal cardiac defibrillator (ICD) and pacemaker ( Chronic) Family History Other Diabetes HTN (hypertension) Lung cancer Social History marital status: Current Living Situation: Spouse Other Information That Helps Us Care for You: No Feels Safe at Home: Yes Safety Concerns: Feels Safe At This Time Smoking Status: Never smoker Tobacco Type: smokeless tobacco Second Hand Exposure: No Hx Alcohol Use: No Hx Substance Use: No Beliefs That Will Affect Care: None Preferred Language: Syriac Communication Ability: Effective Review of Systems Constitutional: no fever, no chills, no body aches and no weakness blurred vision Ear, Nose, Mouth, Throat: + dizziness; no ear trauma, no tinnitus, no hyperacusis, no nasal congestion and no sore throat Respiratory: + dyspnea on exertion (chronic); no cough, no change in sputum and no wheezing Cardiovascular: no chest pain, no chest pain at rest, no radiating jaw, neck or arm pain and no dyspnea at rest Gastrointestinal: no bloating, no nausea, no vomiting, no change in stools, no constipation and no diarrhea/loose stools Genitourinary (Male): no dysuria and no hematuria Musculoskeletal: no back pain and no muscle weakness Integumentary: no non-healing lesions, no skin ulcer and no change in skin color Neurologic: + generalized weakness; no localized weakness, no syncope and no headache(s) Psychiatric: no behavioral changes Physical Exam 2 Vital Signs (Past 24 Hours): Last Vital Signs Temp 36.3 C L 05/20/18 14:35 Pulse 68 05/20/18 14:35 Resp 18 05/20/18 14:35 BP 145/96 H 05/20/18 14:35 Pulse Ox 95 05/20/18 14:35 Physical Exam: General Appearance: WD/WN, no apparent distress Head: normocephalic, atraumatic Eyes: No nystagmus but becomes lightheaded when looking up. PERRL, EOMI ENT: hard of hearing, pharynx normal (moist mucous membranes) Neck: supple, no JVD, no adenopathy Respiratory/Chest: lungs clear to auscultation. No wheezes, rales or rhonci. No respiratory distress or accessory muscle use Cardiovascular: regular rate, rhythm, systolic murmur, normal peripheral pulses Abdomen/GI: normal bowel sounds, soft, non-tender to palpation Extremities/Musculoskelatal: normal inspection, no calf tenderness, normal capillary refill, no pedal edema Neurologic/Psych: alert, normal mood/affect, oriented x 3 Skin: normal color, warm/dry Results & Data Laboratory Results Short CBC 05/20/18 Range/Units 10:15 WBC 6.23 (4.8-10.8) K/uL Hgb 12.5 L (14.0-18.0) g/dL Hct 37.3 L (42-52) % Plt Count 129 L (130-400) K/uL BMP 05/20/18 10:15 Sodium 136 Potassium 4.0 Chloride 105 Carbon Dioxide 25 BUN 45 H Creatinine 3.17 H Glucose 84 Calcium 9.5 Cardiac Enzymes 05/20/18 Range/Units 10:15 Troponin I 0.039 (0-0.045) ng/ml Liver Function 05/20/18 Range/Units 10:15 Total Bilirubin 0.5 (0.2-1) mg/dl AST 39 H (15-37) U/L ALT 63 (12-78) U/L Alkaline Phosphatase 114 (45-117) U/L Albumin 3.4 (3.4-5.0) gm/dl Diagnostic Findings CXR: IMPRESSION: Mild stable cardiomegaly. Otherwise negative study. ECG Findings: + paced rhythm Code Status & VTE Plan Code Status FULL Supervising Physician Co-Signing Physician Notes Agree with above H and P. Briefly 63M with multiple medical problems as mentioned above and who was admitted multiple times since January for sob/ dizziness was at his cardiology office today and complained of dizziness and found to have hypotension and was sent to Er.After 500cc fluids in ER his BP came up and feeling better.Seen by cardiology and pulmonary last admission. Pulmonary of the opinion his sob could be from musculoskeletal weakness from post viral syndrome from his FLU last year.Uses oxygen q hs or when he needs it.He is checking weight daily and its stable. Denies chest pain or cough. Afebrile. No headaches. p/e Ge not in distress Heent: Horizontal nystagmus present? Cvs s1 and s2 heard ESM in aortic area Rs cta b/l no added sounds Abd benign [employer] non focal Ext no edema.. Labs Reviewed. a/p Hypotension dizziness mostly from hypotension improved with fluids questionable horizontal nystagmus has pacemaker and it was interrogated today and is fine will consult neurology Will also consult cardiology and nephrology to adjust his BP meds and diuretics Prior to January admission he was using diuretics only as needed but was then placed back on toresmide three times a week as his sob thought to be from chf. But his Cr is worsening. Hold torsemide for now and monitor Mark on ckd stage 4 baseline cr 2.8 cr today 3.17 holding diuretic received fluids follow labs in am nephrology consulted. _ (1) Diabetic neuropathy Diabetes mellitus complication detail: with other neurological complication Diabetes mellitus type: type 2 Qualified Code(s): E11.49 - Type 2 diabetes mellitus with other diabetic neurological complication (2) DM type 2 (diabetes mellitus, type 2) Chronic kidney disease stage: Diabetes mellitus complication detail: with unspecified neuropathy Diabetes mellitus complication status: with neurologic complications Diabetes mellitus exterminator insulin use: with skilled nursing use Diabetes mellitus macular edema: Diabetic retinopathy severity: Laterality: Proliferative retinopathy type: Qualified Code(s): E11.40 - Type 2 diabetes mellitus with diabetic neuropathy, unspecified; Z79.4 - ferry terminal agent (current) use of insulin (3) Aortic stenosis Cardiac valve disease etiology: nonrheumatic Qualified Code(s): I35.0 - Nonrheumatic aortic (valve) stenosis (4) Atrial fibrillation Atrial fibrillation type: chronic Qualified Code(s): I48.2 - Chronic atrial fibrillation
--- NOTE | 2018-05-20 15:12 | Cardiology Consultation ---
Date of Consultation May 20, 2018 Assessment & Plan (1) Hypotension: Labile blood pressure with symptomatic hypotension I suspect related to volume depletion and diuretic therapy in conjunction with chronic heart failure medications including long-acting nitrates and hydralazine. In the setting of acute renal insufficiency superimposed on chronic kidney disease recommend holding diuretic therapy at this time. Will monitor blood pressure every shift as well as with any recurrent symptoms. Recent echocardiogram demonstrated an improvement in LVEF, now 45-50%. We will continue to follow patient clinically to determine what his diuretic requirement is going forward now that his systolic function has improved. Repeat basic metabolic panel in a.m. No evidence of dysrhythmias per ICD interrogation performed earlier today. (2) Volume depletion: (3) NICM (nonischemic cardiomyopathy): Patient appears compensated. Chest x-ray is clear. Follow daily weight and fluid balance. Repeat BMP in a.m. Hold diuretic therapy. (4) Acute kidney injury superimposed on CKD: (5) Aortic stenosis: Moderate per echocardiogram 01/2018, mild per cardiac catheterization 2017. History of Present Illness Reason for Consultation: Dizziness, hypotension Requesting Physician: Janny Middleton PA-C Attending Physician: Arpan Guzman MD History of Present Illness 63-year-old male presents from the outpatient cardiology clinic secondary to dizziness, hypotension, shortness of breath. Patient presented to the cardiology clinic at [facility] for a device interrogation. Due to symptoms of lightheadedness and hypotension he was seen by Isabel Bergman PA-C was an acute visit. Subsequently referred to the emergency department for further evaluation and treatment. Patient reports hypotensive blood pressures this morning as well as hypotension during his office visit at [facility]. Blood pressure has recovered. He received intravenous hydration in the emergency department. is present at bedside. Patient denies chest pain, palpitations, or overt syncope. Notes lightheadedness primarily in the a.m. after he takes his medications. Admits that he does not eat breakfast nor does he eat prior to taking medications usually. He was recently hospitalized with shortness of breath and dizziness, discharged from [facility] 05/17/18. During that visit diuretic therapy was reduced. Currently taking torsemide 10 mg 3 days/ week. Creatinine is above baseline per initial testing. INR is subtherapeutic. Currently patient is asymptomatic. ICD interrogation performed earlier today demonstrates normal function with 99% biventricular pacing. No ventricular tachycardia episodes reported. ECG demonstrates AV paced rhythm. Patient is asymptomatic at rest. Patient reports witnessed apnea frequently. Patient is pursuing an evaluation with sleep medicine. Wears oxygen at night for history of nocturnal hypoxemia. Cardiac catheterization performed in 2018 demonstrated nonobstructive coronary disease and mild aortic stenosis via invasive hemodynamic measurement. Patient subsequently underwent implantation of a biventricular ICD. Ejection fraction improved from 30%, to 45-50% per most recent echocardiogram 02/04/18. Patient has not been treated with VENKATA inhibitor, ARB, or Aldactone due to renal insufficiency. Allergies Allergy/AdvReac Type Severity Reaction Status Date / Time No Known Allergies Allergy Verified 05/20/18 10:41 Home Medications Home Medications Medication Instructions Recorded Confirmed Type aspirin 81 mg PO DAILY 02/05/18 05/20/18 History cholecalciferol (vitamin D3) 2,000 unit PO DAILY 02/05/18 05/20/18 History [Vitamin D3] insulin glargine [Lantus Solostar 52 units SUBCUT HS 02/05/18 05/20/18 History U-100 Insulin] insulin lispro [Humalog KwikPen 7 units SUBCUT QAM 02/05/18 05/20/18 History Insulin] insulin lispro [Humalog KwikPen 14 unit SUBCUT BID 02/05/18 05/20/18 History Insulin] isosorbide dinitrate 20 mg PO TID 02/05/18 05/20/18 History metoprolol succinate [Toprol XL] 100 mg PO DAILY 02/05/18 05/20/18 History pantoprazole [Protonix] 40 mg PO DAILY 02/05/18 05/20/18 History rosuvastatin [Crestor] 40 mg PO HS 02/05/18 05/20/18 History warfarin 5 mg PO MOTUWETHFRSA@1600 02/05/18 05/20/18 History warfarin [Coumadin] 2.5 mg PO THOMAS@1600 02/05/18 05/20/18 History gabapentin 100 mg PO TID 05/14/18 05/20/18 History hydralazine 25 mg PO TID 05/20/18 05/20/18 History torsemide 10 mg PO MOWEFR 05/20/18 05/20/18 History Patient History Medical History Nocturnal hypoxia (Chronic) GERD (gastroesophageal reflux disease) (Chronic) Thrombocytopenia (Chronic) Chronic anemia (Chronic) COPD (chronic obstructive pulmonary disease) (Chronic) Asthma (Chronic) DM type 2 (diabetes mellitus, type 2) (Chronic) Dyslipidemia (Chronic) Mild aortic stenosis (Chronic) Hypertension (Chronic) CKD (chronic kidney disease), stage III (Chronic) CAD (coronary artery disease) (Chronic) "nonobstructive" Nonischemic cardiomyopathy (Chronic) "EF 44% with mod on 09/25/17" On 06/19/16 22:01 Kassandra Singh wrote "EF 45-49% on echo 08/2014" LBBB (left bundle branch block) (Chronic) Atrial fibrillation (Chronic) Surgical History H/O cardiac catheterization (Chronic) "03/29/2012- mild nonobstructive CAD" Presence of combination internal cardiac defibrillator (ICD) and pacemaker ( Chronic) History of esophagogastroduodenoscopy (EGD) (Chronic) History of colonoscopy (Chronic) Family History Other Diabetes HTN (hypertension) Lung cancer Social History marital status: Current Living Situation: Spouse Other Information That Helps Us Care for You: No Feels Safe at Home: Yes Safety Concerns: Feels Safe At This Time Smoking Status: Never smoker Tobacco Type: smokeless tobacco Second Hand Exposure: No Hx Alcohol Use: No Hx Substance Use: No Beliefs That Will Affect Care: None Preferred Language: Irish Communication Ability: Effective Review of Systems Pertinent positives noted per HPI, comprehensive 10 system review otherwise negative. Physical Exam 2 Vital Signs (Past 24 Hours): Last Vital Signs Temp 36.3 C L 05/20/18 14:35 Pulse 68 05/20/18 14:35 Resp 18 05/20/18 14:35 BP 145/96 H 05/20/18 14:35 Pulse Ox 95 05/20/18 14:35 Physical Exam: General: NAD, AAO x3, well nourished. HEENT: Normocephalic. Atraumatic. Conjunctiva pink, no scleral icterus. Neck: No carotid bruits, the carotid upstrokes are brisk. No JVD. No HJR Heart: Regular normal S-1 and S-2 no S-3 or S-4 gallop. 2/6 low pitched mid peaking systolic ejection murmur heard best at the right second intercostal space with radiation to the base of the right carotid artery. No rub appreciated. PMI is not displaced. No RV heave. Lungs: Clear bilateral without rales , rhonchi, or wheeze. Abdomen: Normal bowel sounds. Soft. Nontender. No masses or organomegaly. No abdominal bruits. Extremities: No clubbing, cyanosis, or edema. Pulses: radial=2/4, Dorsalis pedis =2/4, posterior tibial=2/4. Neuro: Cranial nerves grossly intact. No focal motor deficit. _ (1) Aortic stenosis Cardiac valve disease etiology: nonrheumatic Qualified Code(s): I35.0 - Nonrheumatic aortic (valve) stenosis (2) Hypotension Hypotension type: hypotension due to hypovolemia Qualified Code(s): I95.89 - Other hypotension; E86.1 - Hypovolemia
--- NOTE | 2018-05-20 15:19 | Neurology Consultation ---
Date of Consultation May 20, 2018 Assessment & Plan (1) Dizziness: 1. dizziness- orthostatic blood pressures would be helpful at varying times of the day 2. CTA head and neck to evaluate vessels 3. CT head with and without fine cuts in the area of IACs - unable to perform MRI due to pacer. 4. PT for Riri r/o element of vertigo 5. out patient ENT referral 6. cardiology for optimizing HTN medications- ICD placed with EF 45-5-% now- interregation done yesterday 7. history of peripheral neuropathy pain in feet on gabepentin- further evaluation with EMG as outpatient 8. this is likely multi symptom etiology which known peripheral neuropathy, hypo tensive episodes, hearing loss with tinnitus further recommendations to follow once imaging is completed. Supervising Physician Co-Signing Physician Notes I have seen and discussed above patient with Dr Arpan Lara, neurology I have seen and examined Mr. Delarosa today, reviewed his history, reviewed the above plan outlined by Roxann Eldridge PA-C and am unclear as to how many of his symptoms reflect orthostatic hypotension ( perhaps related to his medications and a degree of autonomic neuropathy secondary to his diabetes) versus how many of these symptoms may be related to an element of positional vertigo or primary vestibulopathy On exam he has a very weakly positive Hallpike maneuver with vertical head movements not horizontal, minimal if any nystagmus, and evidence for polyneuropathy but otherwise nothing else of significance there may be a slight right-sided hearing loss with bone conduction delay greater than air conduction on that side. However however does not lateralize and gross hearing seems to be intact bilaterally. We initially were going to perform CT angiography of the neck and intracranial circulation along with an enhanced CT scan of the brain with special views of the internal auditory canals his current renal function however did not permit this testing so we are going to settle for noncontrast IAC views in addition to noncontrast CT of the brain and a duplex of the carotid arteries. He is also going to have a physical therapy consult for potential Riri maneuver and other vestibular exercises He is going to have his blood pressure monitored for orthostasis cardiology has already seen him and we will follow-up tomorrow on the outstanding studies and hopefully his response to physical therapy Arpan Lara MD History of Present Illness Reason for Consultation: persistent dizziness Requesting Physician: Arpan Guzman MD Attending Physician: Arpan Guzman MD History of Present Illness Willis is a 63 year old male presents from the outpatient cardiology clinic secondary to dizziness, hypotension, SOB. He was at [facility] for a device interrogation which showed 99% biventricular pacing. Due to symptoms of lightheadedness and hypotension he was seen by Isabel Bergman PA-C was an acute visit. Patient reports hypotensive blood pressures this morning as well as hypotension during his office visit at [facility]. Notes lightheadedness primarily in the a.m. after he takes his medications. Admits that he does not eat breakfast nor does he eat prior to taking medications usually. He was recently hospitalized with shortness of breath and dizziness, discharged from [facility] 05/17/18. They reduced his diuretic and currently it has been stopped. He is a history of hearing loss and states sometime the lightheaded is while rolling in bed. denies CP, SOB, abdominal pain, one sided weakness, numbness tingling, N, V, vision changes, falls in last 2 weeks. he does have a history of peripheral neuropathy. Allergies Allergy/AdvReac Type Severity Reaction Status Date / Time No Known Allergies Allergy Verified 05/20/18 10:41 Home Medications Home Medications Medication Instructions Recorded Confirmed Type aspirin 81 mg PO DAILY 02/05/18 05/20/18 History cholecalciferol (vitamin D3) 2,000 unit PO DAILY 02/05/18 05/20/18 History [Vitamin D3] insulin glargine [Lantus Solostar 52 units SUBCUT HS 02/05/18 05/20/18 History U-100 Insulin] insulin lispro [Humalog KwikPen 7 units SUBCUT QAM 02/05/18 05/20/18 History Insulin] insulin lispro [Humalog KwikPen 14 unit SUBCUT BID 02/05/18 05/20/18 History Insulin] isosorbide dinitrate 20 mg PO TID 02/05/18 05/20/18 History metoprolol succinate [Toprol XL] 100 mg PO DAILY 02/05/18 05/20/18 History pantoprazole [Protonix] 40 mg PO DAILY 02/05/18 05/20/18 History rosuvastatin [Crestor] 40 mg PO HS 02/05/18 05/20/18 History warfarin 5 mg PO MOTUWETHFRSA@1600 02/05/18 05/20/18 History warfarin [Coumadin] 2.5 mg PO THOMAS@1600 02/05/18 05/20/18 History gabapentin 100 mg PO TID 05/14/18 05/20/18 History hydralazine 25 mg PO TID 05/20/18 05/20/18 History torsemide 10 mg PO MOWEFR 05/20/18 05/20/18 History Patient History Medical History Diabetic neuropathy (Chronic) Chronic systolic (congestive) heart failure (Chronic) Aortic stenosis (Chronic) Nocturnal hypoxia (Chronic) on 2L NC O2 HS GERD (gastroesophageal reflux disease) (Chronic) Thrombocytopenia (Chronic) Chronic anemia (Chronic) Asthma (Chronic) DM type 2 (diabetes mellitus, type 2) (Chronic) Dyslipidemia (Chronic) Hypertension (Chronic) CAD (coronary artery disease) (Chronic) "nonobstructive" Nonischemic cardiomyopathy (Chronic) "EF 40-45% with mod on 02/04" LBBB (left bundle branch block) (Chronic) Atrial fibrillation (Chronic) on chronic anticoagulation Surgical History H/O cardiac catheterization (Chronic) Non nonobstructive CAD on 2016 cardiac cath Presence of combination internal cardiac defibrillator (ICD) and pacemaker ( Chronic) Family History Other Diabetes HTN (hypertension) Lung cancer Social History marital status: Current Living Situation: Spouse Other Information That Helps Us Care for You: No Feels Safe at Home: Yes Safety Concerns: Feels Safe At This Time Smoking Status: Never smoker Tobacco Type: smokeless tobacco Second Hand Exposure: No Hx Alcohol Use: No Hx Substance Use: No Beliefs That Will Affect Care: None Preferred Language: Croatian Communication Ability: Effective Physical Exam 2 Vital Signs (Past 24 Hours): Last Vital Signs Temp 36.3 C L 05/20/18 14:35 Pulse 68 05/20/18 14:35 Resp 18 05/20/18 14:35 BP 145/96 H 05/20/18 14:35 Pulse Ox 95 05/20/18 14:35 Physical Exam: Constitutional: appearance over nourished Ears, Nose, Mouth and Throat: mucous membranes moist, no injection and skin normal, eyes normal Cardiovascular: normal S-1 and S-2 and regular rate and rhythm Respiratory: course breath sounds Musculoskeletal: no peripheral edema Skin: no stigmata of neurocutaneous disease noted and normal and intact Eyes: extraocular muscles intact (EOMI) and pupils equal, round and reactive to light (PERRL) no nystagmus NEUROLOGIC EXAMINATION: Mental status: Alert and interactive Oriented to full date and location Oriented to person Speech fluent with no evidence of aphasia Cranial Nerves smile eye brow raise symmetric Reflexes: Deep tendon reflexes were symmetrical and graded 2/5. Plantar responses were flexor. Sensory: no sensory deficit to light cool touch, decreased sensation to vibration right LE, GT proprioception intract bilaterallly Coordination: Romberg absent Gait/Stance: Posture normal. rises to sitting with no symptoms and to standing with no symptoms Motor: Negative for pronator drift of out stretched arms with eyes closed. Strength: biceps triceps hand pony rougher 5/5 bilaterally, hip flex plantar flex ext 5/5 bilaterally Results & Data Laboratory Results Abnormal lab results 05/20/18 05/20/18 05/20/18 Range/Units 10:15 10:15 10:18 RBC 4.55 L (4.7-6.1) M/uL Hgb 12.5 L (14.0-18.0) g/dL Hct 37.3 L (42-52) % Plt Count 129 L (130-400) K/uL Immature Gran # (Auto) 0.03 H (0.00-0.02) K/uL Lymph # (Auto) 0.97 L (1.2-3.4) K/uL PT 15.4 H (9.0-12.0) Seconds INR 1.6 H (0.9-1.1) BUN 45 H (7-18) mg/dl Creatinine 3.17 H (0.6-1.4) mg/dl AST 39 H (15-37) U/L Lipase 69 L (73-393) U/L Diagnostic Findings CXR- Mild stable cardiomegaly. Otherwise negative study.
[2018-05-20] MEDS: WARFARIN SOD 5 MG TAB PO SCH (15:29)
[2018-05-20] MEDS: GABAPENTIN 100 MG CAP PO SCH ×2 (15:30→21:19)
[2018-05-20] MEDS ORDERED: Heparin IV Low Dose *NO* Bolus IV SCH (17:15)
[2018-05-20] MEDS ORDERED: GLUCOSE 10 TABS/TUBE PO PRN (17:18)
[2018-05-20] MEDS ORDERED: GLUCOSE 40% GEL 15 GM TUBE PO PRN (17:18)
[2018-05-20] MEDS ORDERED: GLUCAGON FOR INJ 1 MG VIAL SQ PRN (17:18)
[2018-05-20] MEDS ORDERED: DEXTROSE 50% 50 ML SYRINGE IV PRN (17:18)
--- NOTE | 2018-05-20 17:27 | Emergency Department Note ---
Entered by Stevo Kenny acting as a scribe for History of Present Illness General Chief complaint: Dizziness Source: patient Limitations: no limitations History of Present Illness Provider complaint: SOB Onset (ago): hour(s) Location: chest (SOB) Pain Consistency: + intermittent Quality: + other (SOB) Exacerbated By: + other (exertion) Associated symptoms: + headaches (Dizziness) and + other (Hypotensive); no chest pain The patient is a 63 year old male who presents to the Emergency Room with complaints of intermittent shortness of breath. The patient notes that he has been dealing with issues with shortness of breath for the past 2 months. He was last admitted here to the hospital for shortness of breath on the of this month, and discharged 4 days ago. The patient was on his way to [facility] today for a follow-up with cardiology. As he walked from the parking lot to the facility he became short of breath. The patient also notes becoming significantly "lightheaded" and "dizzy." He adds that he has had these symptoms with exertion for the past two months. He has developed left sided chest pain with exertion intermittently as well, but has not had any chest pain today. EMS states that the patient was hypotensive at 76/50 as they were checking him in and they referred him to the ED immediately. The patient denies any other nausea , vomiting, diarrhea, or abdominal pain. Home Medications Home Medications Medication Instructions Recorded Confirmed Type aspirin 81 mg PO DAILY 02/05/18 05/20/18 History cholecalciferol (vitamin D3) 2,000 unit PO DAILY 02/05/18 05/20/18 History [Vitamin D3] insulin glargine [Lantus Solostar 52 units SUBCUT HS 02/05/18 05/20/18 History U-100 Insulin] insulin lispro [Humalog KwikPen 7 units SUBCUT QAM 02/05/18 05/20/18 History Insulin] insulin lispro [Humalog KwikPen 14 unit SUBCUT BID 02/05/18 05/20/18 History Insulin] isosorbide dinitrate 20 mg PO TID 02/05/18 05/20/18 History metoprolol succinate [Toprol XL] 100 mg PO DAILY 02/05/18 05/20/18 History pantoprazole [Protonix] 40 mg PO DAILY 02/05/18 05/20/18 History rosuvastatin [Crestor] 40 mg PO HS 02/05/18 05/20/18 History warfarin 5 mg PO MOTUWETHFRSA@1600 02/05/18 05/20/18 History warfarin [Coumadin] 2.5 mg PO THOMAS@1600 02/05/18 05/20/18 History gabapentin 100 mg PO TID 05/14/18 05/20/18 History hydralazine 25 mg PO TID 05/20/18 05/20/18 History torsemide 10 mg PO MOWEFR 05/20/18 05/20/18 History Allergies Allergy/AdvReac Type Severity Reaction Status Date / Time No Known Allergies Allergy Verified 05/20/18 10:41 Past Med/Surg History Medical History Diabetic neuropathy (Chronic) Chronic systolic (congestive) heart failure (Chronic) Aortic stenosis (Chronic) Nocturnal hypoxia (Chronic) on 2L NC O2 HS GERD (gastroesophageal reflux disease) (Chronic) Thrombocytopenia (Chronic) Chronic anemia (Chronic) Asthma (Chronic) DM type 2 (diabetes mellitus, type 2) (Chronic) Dyslipidemia (Chronic) Hypertension (Chronic) CAD (coronary artery disease) (Chronic) "nonobstructive" Nonischemic cardiomyopathy (Chronic) "EF 40-45% with mod on 02/04" LBBB (left bundle branch block) (Chronic) Atrial fibrillation (Chronic) on chronic anticoagulation Surgical History H/O cardiac catheterization (Chronic) Non nonobstructive CAD on 2016 cardiac cath Presence of combination internal cardiac defibrillator (ICD) and pacemaker ( Chronic) Family History Other Diabetes HTN (hypertension) Lung cancer Social History marital status: Current Living Situation: Spouse Other Information That Helps Us Care for You: No Feels Safe at Home: Yes Safety Concerns: Feels Safe At This Time Smoking Status: Never smoker Tobacco Type: smokeless tobacco Second Hand Exposure: No Hx Alcohol Use: No Hx Substance Use: No Beliefs That Will Affect Care: None Preferred Language: Slovenian Communication Ability: Effective Review of Systems See HPI for pertinent positives & negatives. and A total of 10 systems reviewed and were otherwise negative Physical Exam Vital Signs Vital Signs - 24 hr 05/20/18 10:14 05/20/18 10:18 05/20/18 10:30 Temperature 36.5 C Temperature Source Oral Sepsis Recent Fever Within 48 Hours No Sepsis New/Unexplained Change in Mental Status No Sepsis Action Taken by Nursing No Action Required Pulse Rate - Lying Pulse Rate - Sitting Pulse Rate - Standing Pulse Rate 85 81 77 Pulse Rate [Right Finger] Respiratory Rate 15 24 20 Respiratory Effort / Characteristics Spontaneous Blood Pressure - Lying Blood Pressure - Sitting Blood Pressure- Standing Blood Pressure 120/79 120/79 Blood Pressure [Right Arm] Blood Pressure Mean 92 92 Blood Pressure Mean [Right Arm] Blood Pressure Position Lying Pulse Oximetry 91 94 91 Oxygen Delivery Method Room Air 05/20/18 10:44 05/20/18 11:00 05/20/18 11:30 Temperature Temperature Source Sepsis Recent Fever Within 48 Hours Sepsis New/Unexplained Change in Mental Status Sepsis Action Taken by Nursing Pulse Rate - Lying Pulse Rate - Sitting Pulse Rate - Standing Pulse Rate 66 61 Pulse Rate [Right Finger] Respiratory Rate 20 17 Respiratory Effort / Characteristics Blood Pressure - Lying Blood Pressure - Sitting Blood Pressure- Standing Blood Pressure Blood Pressure [Right Arm] Blood Pressure Mean Blood Pressure Mean [Right Arm] Blood Pressure Position Pulse Oximetry 97 91 96 Oxygen Delivery Method Room Air 05/20/18 11:31 05/20/18 11:42 05/20/18 13:53 Temperature Temperature Source Sepsis Recent Fever Within 48 Hours Sepsis New/Unexplained Change in Mental Status Sepsis Action Taken by Nursing Pulse Rate - Lying Pulse Rate - Sitting Pulse Rate - Standing Pulse Rate 64 74 Pulse Rate [Right Finger] Respiratory Rate 16 22 Respiratory Effort / Characteristics Blood Pressure - Lying Blood Pressure - Sitting Blood Pressure- Standing Blood Pressure 169/98 H 111/75 Blood Pressure [Right Arm] Blood Pressure Mean 121 Blood Pressure Mean [Right Arm] Blood Pressure Position Pulse Oximetry 96 94 Oxygen Delivery Method Room Air Room Air 05/20/18 14:35 05/20/18 14:36 Temperature 36.3 C L Temperature Source Oral Sepsis Recent Fever Within 48 Hours Sepsis New/Unexplained Change in Mental Status Sepsis Action Taken by Nursing Pulse Rate - Lying 66 Pulse Rate - Sitting 66 Pulse Rate - Standing 66 Pulse Rate Pulse Rate [Right Finger] 68 Respiratory Rate 18 Respiratory Effort / Characteristics Blood Pressure - Lying 164/83 H Blood Pressure - Sitting 144/89 H Blood Pressure- Standing 124/83 Blood Pressure Blood Pressure [Right Arm] 145/96 H Blood Pressure Mean Blood Pressure Mean [Right Arm] 112 Blood Pressure Position Pulse Oximetry 95 Oxygen Delivery Method Room Air GENERAL: Sitting up in bed, alert, well appearing, well nourished, no distress, non-toxic EYE EXAM: normal conjunctiva. OROPHARYNX: no exudate, no erythema, lips, buccal mucosa, and tongue normal and mucous membranes are moist NECK: supple, no nuchal rigidity, no adenopathy, non-tender LUNGS: Clear to auscultation. Normal chest wall mechanics HEART: Positive systolic ejection murmur. S1 normal and S2 normal ABDOMEN: abdomen soft, non-tender, normo-active bowel, sounds, no masses, no rebound or guarding. BACK: Back is symmetrical on inspection and there is no deformity, no midline tenderness, no CVA tenderness. SKIN: no rashes and no bruising UPPER EXTREMITIES: upper extremities are grossly normal. LOWER EXTREMITIES: No pitting edema. NEURO EXAM: Normal sensorium, cranial nerves II-XII grossly intact, normal speech, no gross weakness of arms, no gross weakness of legs. Course ED COURSE: Vital signs were reviewed and showed normal vitals. The patients medical record was reviewed The above diagnostic studies were performed and reviewed. ED treatments and interventions as stated above. 1022: The patient was evaluated in room A2. A complete history and physical examination was performed. 1147: Upon reevaluation, the patient is resting in bed. I discussed my findings with the patient and he understands and agrees with the treatment plan. Based on the patients age, coexisting illnesses, exam and lab findings the decision to treat as an inpatient was made. The patient remained stable while under my care. The patient will be evaluated for further management. 1150: I reviewed the patient's case with Janny Hampton PA-C. She will evaluate the patient for further management. Consultations Consultation #1: 1150: I reviewed the patient's case with Janny Hampton PA-C. She will evaluate the patient for further management. Administered Medications Gabapentin (Neurontin) 100 mg PO TID [facility] Stop: 06/19/18 13:59 Last Admin: 05/20/18 15:30 Dose: 100 mg Hydralazine HCl (Apresoline) 25 mg PO TID [facility] Stop: 06/19/18 13:59 Last Admin: 05/20/18 15:31 Dose: 25 mg Warfarin Sodium (Coumadin) 5 mg PO MOTUWETHFRSA@1600 [facility] Stop: 06/19/18 15:59 Last Admin: 05/20/18 15:29 Dose: 5 mg Discontinued Medications Sodium Chloride (Nss) 500 mls @ 999 mls/hr IV .Q31M [facility] Stop: 05/20/18 11:00 Last Infusion: 05/20/18 11:57 Dose: 0 mls/hr Admin: 05/20/18 11:10 Dose: 999 mls/hr Medical Decision Making Differential Diagnosis Differential diagnosis: Etiologies such as infections, reactive airway disease, COPD, pneumonia, pleural effusion, pulmonary edema, ARDS, pneumothorax, CHF, cardiac ischemia, cardiac tamponade, dysrhythmia, anemia, pulmonary embolism, musculoskeletal, gastrointestinal process, as well as others were entertained. Medical Records Attestation: I reviewed the patient's medical records. Home Medications Current Medication List: was personally reviewed by me Laboratory Data Attestation: I reviewed the patient's lab results. Result diagrams: 05/20/18 10:15 05/20/18 10:15 Lab Results 05/20/18 05/20/18 05/20/18 Range/Units 10:15 10:15 10:18 WBC 6.23 (4.8-10.8) K/uL RBC 4.55 L (4.7-6.1) M/uL Hgb 12.5 L (14.0-18.0) g/dL Hct 37.3 L (42-52) % MCV 82.0 (80-100) fL MCH 27.5 (25-34) pg MCHC 33.5 (32-36) g/dL RDW Std Deviation 40.9 (36.4-46.3) fL RDW Coeff of Joey 13.6 (11.5-14.5) % Plt Count 129 L (130-400) K/uL MPV 9.4 (7.4-10.4) fL Immature Gran % (Auto) 0.5 % Neut % (Auto) 72.8 % Lymph % (Auto) 15.6 % [place] % (Auto) 8.3 % Eos % (Auto) 2.6 % Baso % (Auto) 0.2 % Immature Gran # (Auto) 0.03 H (0.00-0.02) K/uL Neut # (Auto) 4.54 (1.4-6.5) K/uL Lymph # (Auto) 0.97 L (1.2-3.4) K/uL [place] # (Auto) 0.52 (0.11-0.59) K/uL Eos # (Auto) 0.16 (0-0.5) K/uL Baso # (Auto) 0.01 (0-0.2) K/uL PT 15.4 H (9.0-12.0) Seconds INR 1.6 H (0.9-1.1) Sodium 136 (136-145) mmol/L Potassium 4.0 (3.5-5.1) mmol/L Chloride 105 (98-107) mmol/L Carbon Dioxide 25 (21-32) mmol/L Anion Gap 6.0 (3-11) BUN 45 H (7-18) mg/dl Creatinine 3.17 H (0.6-1.4) mg/dl Est Cr Clr Drug Dosing 27.7 ml/min Est GFR ( Amer) 22.7 Est GFR (Non-Af Amer) 19.6 BUN/Creatinine Ratio 14.3 (10-20) Glucose 84 (70-99) mg/dl POC Glucose (70-99) Calcium 9.5 (8.5-10.1) mg/dl Total Bilirubin 0.5 (0.2-1) mg/dl AST 39 H (15-37) U/L ALT 63 (12-78) U/L Alkaline Phosphatase 114 (45-117) U/L Troponin I 0.039 (0-0.045) ng/ml Total Protein 7.0 (6.4-8.2) gm/dl Albumin 3.4 (3.4-5.0) gm/dl Globulin 3.6 (2.5-4.0) gm/dl Albumin/Globulin Ratio 0.9 (0.9-2) Lipase 69 L (73-393) U/L 05/20/18 Range/Units 16:44 WBC (4.8-10.8) K/uL RBC (4.7-6.1) M/uL Hgb (14.0-18.0) g/dL Hct (42-52) % MCV (80-100) fL MCH (25-34) pg MCHC (32-36) g/dL RDW Std Deviation (36.4-46.3) fL RDW Coeff of Joey (11.5-14.5) % Plt Count (130-400) K/uL MPV (7.4-10.4) fL Immature Gran % (Auto) % Neut % (Auto) % Lymph % (Auto) % [place] % (Auto) % Eos % (Auto) % Baso % (Auto) % Immature Gran # (Auto) (0.00-0.02) K/uL Neut # (Auto) (1.4-6.5) K/uL Lymph # (Auto) (1.2-3.4) K/uL [place] # (Auto) (0.11-0.59) K/uL Eos # (Auto) (0-0.5) K/uL Baso # (Auto) (0-0.2) K/uL PT (9.0-12.0) Seconds INR (0.9-1.1) Sodium (136-145) mmol/L Potassium (3.5-5.1) mmol/L Chloride (98-107) mmol/L Carbon Dioxide (21-32) mmol/L Anion Gap (3-11) BUN (7-18) mg/dl Creatinine (0.6-1.4) mg/dl Est Cr Clr Drug Dosing ml/min Est GFR ( Amer) Est GFR (Non-Af Amer) BUN/Creatinine Ratio (10-20) Glucose (70-99) mg/dl POC Glucose 261 H (70-99) Calcium (8.5-10.1) mg/dl Total Bilirubin (0.2-1) mg/dl AST (15-37) U/L ALT (12-78) U/L Alkaline Phosphatase (45-117) U/L Troponin I (0-0.045) ng/ml Total Protein (6.4-8.2) gm/dl Albumin (3.4-5.0) gm/dl Globulin (2.5-4.0) gm/dl Albumin/Globulin Ratio (0.9-2) Lipase (73-393) U/L Imaging Data Attestation: I personally reviewed and interpreted this imaging study as follows : Radiologist's Impression: XR chest 1V portable CLINICAL HISTORY: Chest Pain pain COMPARISON STUDY: 05/14/2017 FINDINGS: Mild stable cardiomegaly. Cardiac pacemaker in good position. No evidence pneumothorax. Lungs are considered clear. Diaphragms are smooth. IMPRESSION: Mild stable cardiomegaly. Otherwise negative study. The above report was generated using voice recognition software. It may contain grammatical, syntax or spelling errors. Electronically signed by: Billy Phillips M.D. 05/20/2018 10:43 AM ECG Data Attestation: I personally reviewed and interpreted this ECG as follows: Indication: chest pain and SOB/dyspnea Rate (beats per minute): 84 Rhythm: other (AV dual paced) Findings: + other (RAD) and + RBBB Blood Pressure Blood Pressure Findings: Elevated blood pressure Blood Pressure Disposition: further management by hospitalist ABDULLAHI Narrative This is a 63 y/o M with PMH non-ischemic cardiomyopathy, s/p pacemaker, atrial fibrillation on coumadin, COPD, DM II, Nonischemic [employer] with chronic systolic 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 Patients medical record was reviewed and had one visit in March and once the end of April. In the end of April patient had extensive workup by pulmonology one in March there was an extensive workup by cardiology. Pulmonology does not believe this to be associated with them. Patient was at cardiology's office today and found to be hypotensive dizzy. Upon presentation to ER vitals show that he is mildly hypertensive. CBC shows no significant anemia or leukocytosis. INR was slightly subtherapeutic at 1.6. Creatinine was still at 3.1. LFTs lipase was unremarkable. Troponin was negative. EKG unremarkable. Discussed with hospitalist for observation patient was further evaluated. Patient was updated bedside. Impression & Plan Dizziness, SOB (shortness of breath), Hypotension Discharge Plan Visit Data *Final* Discharge Date/Time: 05/20/18 13:53 Chief Complaint: Dizziness ED Provider: Corona Montes Discharge Problem: Dizziness, SOB (shortness of breath), Hypotension Patient Disposition: Admitted As Inpatient Discharge Instructions Interventions: ED Discharge Assessment Last Done: 05/20/18 13:53 The scribe's documentation has been prepared under my direction and personally reviewed by me in its entirety. I confirm that the note above accurately reflects all work, treatment, procedures, and medical decision making performed by me.
[2018-05-20] MEDS ORDERED: INSULIN GLARGINE SOLOSTAR 100 UNITS/ML 3 ML PEN SC SCH (17:30)
[2018-05-20] MEDS: ISOSORBIDE DINITRATE 10 MG TAB PO SCH (17:38)
[2018-05-20] MEDS: INSULIN ASPART 100 UNITS/ML 3 ML PEN SC SCH ×2 (17:56→21:23)
--- NOTE | 2018-05-20 18:20 | CT Scan Report ---
CT IAC BI wo con CLINICAL HISTORY: 63 years-old Male presenting with vertigo and hearing loss with tinnitus. TECHNIQUE: Multidetector CT of the internal auditory canals was performed without the use of intraven ous contrast. IV contrast: None. One or more dose lowering techniques were used consistent with the p rinciples of ALARA (as low as reasonably achievable), including automatic exposure control, mA or kV adjustment to individual patient size, and/or use of iterative reconstruction. COMPARISON: Head CT 05/15/2018. CT DOSE (mGy.cm): The estimated cumulative dose is 1119.73 mGy.cm. FINDINGS: Senior Telecommunications Engineer topogram: Unremarkable. Mild mucosal thickening in the nasal cavity. Paranasal sinuses and mastoid air cells clear. Middle ea rs clear. Internal auditory canals normal without evidence of remodeling. Inner ears structures artis l. Normal appearance of the vestibular aqueducts. External auditory canals patent. Temporomandibular joints intact. Extensive atherosclerosis of the internal auditory canals. Limited intracranial evaluation within normal limits. Visualized soft tissues normal. Orbits normal. IMPRESSION: Normal CT evaluation of the temporal bones. Electronically signed by: Pino Hood M.D. 05/20/2018 6:19 PM
--- NOTE | 2018-05-20 18:25 | CT Scan Report ---
CT head/brain wo con CLINICAL HISTORY: 63 years-old Male presenting with clinical concern for stroke, known vascular disea se. TECHNIQUE: Multidetector CT imaging of the head was performed without the use of intravenous contrast . IV contrast: None. One or more dose lowering techniques were used consistent with the principles of ALARA (as low as reasonably achievable), including automatic exposure control, mA or kV adjustment t o individual patient size, and/or use of iterative reconstruction. COMPARISON: 05/14/2018. CT DOSE (mGy.cm): The estimated cumulative dose is 1119.73. FINDINGS: Filbert Grower topogram: Unremarkable. Ventricles and sulci normal in size. No hemorrhage. Periventricular and subcortical white matter hypo attenuation, nonspecific but likely indicative of chronic small vessel ischemic change. Bilateral old lacunar infarcts may be present in the basal ganglia. No acute territorial infarct. No mass effect o r midline shift. No extra-axial fluid collection. Paranasal sinuses and mastoid air cells clear. Calv arium intact. Intracranial atherosclerosis noted. IMPRESSION: 1. Chronic small vessel ischemic change. No acute intracranial abnormality. Electronically signed by: Pino Hood M.D. 05/20/2018 6:23 PM
[2018-05-20] MEDS: HEPARIN LOW DOSE DEXTROSE 25,000 UNITS/500 ML IV SCH (18:47)
[2018-05-20] MEDS: ROSUVASTATIN CALCIUM 20 MG TAB PO SCH (21:53)
[2018-05-20] MEDS ORDERED: INSULIN GLARGINE SOLOSTAR 100 UNITS/ML 3 ML PEN SC ONE (22:45)
[2018-05-21 01:05] LABS: Partial Thromboplastin Ratio 1.2; Partial Thromboplastin Time 30.8 Seconds (21.0-31.0)
[2018-05-21] MEDS ORDERED: HEPARIN IV BOLUS 4,500 UNITS in SYRINGE 0 ML IV ONE (02:00)
[2018-05-21] MEDS: ISOSORBIDE DINITRATE 10 MG TAB PO SCH ×3 (06:32→16:51)
--- NOTE | 2018-05-21 07:50 | Nephrology Consultation ---
Date of Consultation May 21, 2018 Assessment & Plan (1) CKD (chronic kidney disease) stage 4, GFR 15-29 ml/min: at this point w/ so many admissions, difficult to have enough time clinically to est new baseline creatinine w/o active medical issues. he appears to run in april in the high 2's, low to mid 3's for creatinine. Not really acute renal failure, just more likley progression w/ intercurrent illnesses this fall/winter. chemistries and bp acceptable as is uop and current volume status. ua bland w/ chronic stable proteinuria, likely from dm -recommend daily standing weight -recommend <2 gm daily Na diet and FR 1.5-1.8L -agree for now w/ holdin diuretics -other bp meds per cardiology -daily bmp -no acute indication for dialysis; not clear to me that he would be a candidate or tolerate tx Present on Admission?: Yes History of Present Illness Reason for Consultation: PAM on CKD Requesting Physician: Dr Desai Attending Physician: Arpan Guzman MD History of Present Illness 63 y/o M whom I'm asked to see for PAM on CKD. He was admitted yesterday from cardiology clinic d/t ongoing concerns about continued dizziness, hypotension, progressive generalized weakness w/ several admissions w/ similar presentation in past year, including march 2018 and april 2018. creatinine ranged 2.6- 3.6 during those admissions. at last d/c on 05/15, creatinine was 3.5. Creatinine 3.2 on presentation yesterday and 3.3 this am Neurology and cardiology are following. Pt w/ hx of NICMO EF 45-50% (improved after ICD placement), IDDM, ckd 4/5, moderate , a fib on coumadin, chronic anemia/ thrombocytopenia. he is on a heparin gtt currently for subtherapeutic INR. he received 500 mL in ER and felt improved; icd interrogation unremarkable. hydrlaazine, imdur, toprol continued and diuretics held. Neurology following > recommends orthostatic bp at different points i day; carotid dopplers; cannot do CTA neck d/t renal status. Else for OP f/u for neuro. Allergies Allergy/AdvReac Type Severity Reaction Status Date / Time No Known Allergies Allergy Verified 05/20/18 10:41 Home Medications Home Medications Medication Instructions Recorded Confirmed Type aspirin 81 mg PO DAILY 02/05/18 05/20/18 History cholecalciferol (vitamin D3) 2,000 unit PO DAILY 02/05/18 05/20/18 History [Vitamin D3] insulin glargine [Lantus Solostar 52 units SUBCUT HS 02/05/18 05/20/18 History U-100 Insulin] insulin lispro [Humalog KwikPen 7 units SUBCUT QAM 02/05/18 05/20/18 History Insulin] insulin lispro [Humalog KwikPen 14 unit SUBCUT BID 02/05/18 05/20/18 History Insulin] isosorbide dinitrate 20 mg PO TID 02/05/18 05/20/18 History metoprolol succinate [Toprol XL] 100 mg PO DAILY 02/05/18 05/20/18 History pantoprazole [Protonix] 40 mg PO DAILY 02/05/18 05/20/18 History rosuvastatin [Crestor] 40 mg PO HS 02/05/18 05/20/18 History warfarin 5 mg PO MOTUWETHFRSA@1600 02/05/18 05/20/18 History warfarin [Coumadin] 2.5 mg PO THOMAS@1600 02/05/18 05/20/18 History gabapentin 100 mg PO TID 05/14/18 05/20/18 History hydralazine 25 mg PO TID 05/20/18 05/20/18 History torsemide 10 mg PO MOWEFR 05/20/18 05/20/18 History Patient History Medical History Diabetic neuropathy (Chronic) Chronic systolic (congestive) heart failure (Chronic) Aortic stenosis (Chronic) Nocturnal hypoxia (Chronic) on 2L NC O2 HS GERD (gastroesophageal reflux disease) (Chronic) Thrombocytopenia (Chronic) Chronic anemia (Chronic) Asthma (Chronic) DM type 2 (diabetes mellitus, type 2) (Chronic) Dyslipidemia (Chronic) Hypertension (Chronic) CAD (coronary artery disease) (Chronic) "nonobstructive" Nonischemic cardiomyopathy (Chronic) "EF 40-45% with mod on 02/04" LBBB (left bundle branch block) (Chronic) Atrial fibrillation (Chronic) on chronic anticoagulation Surgical History H/O cardiac catheterization (Chronic) Non nonobstructive CAD on 2016 cardiac cath Presence of combination internal cardiac defibrillator (ICD) and pacemaker ( Chronic) Family History Other Diabetes HTN (hypertension) Lung cancer Social History marital status: Current Living Situation: Spouse Other Information That Helps Us Care for You: No Feels Safe at Home: Yes Safety Concerns: Feels Safe At This Time Smoking Status: Never smoker Tobacco Type: smokeless tobacco Second Hand Exposure: No Hx Alcohol Use: No Hx Substance Use: No Beliefs That Will Affect Care: None Communication Ability: Effective Review of Systems Constitutional: + fatigue, + weakness and + daytime sleepiness reports blurred vision sitting in chair as he talks to me Ear, Nose, Mouth, Throat: no dry mouth Respiratory: no cough and no dyspnea Cardiovascular: + lightheadedness; no chest pain, no dyspnea on exertion, no palpitations and no edema Gastrointestinal: + nausea; no vomiting, no change in bowel habits and no diarrhea/loose stools Genitourinary (Male): no dysuria, no urinary frequency, no urinary hesitancy and no nocturia Musculoskeletal: + muscle weakness Integumentary: no rash and no non-healing lesions Neurologic: + gait abnormality, + unsteadiness, + generalized weakness and + dizziness Psychiatric: + hopelessness (states he's "tired of living" in current state) Endocrine: + fatigue Hematologic / Lymphatic: no easy bleeding Physical Exam 2 Vital Signs (Past 24 Hours): Last Vital Signs Temp 36.8 C 05/20/18 23:00 Pulse 83 05/21/18 06:30 Resp 23 05/20/18 23:00 BP 157/82 H 05/21/18 06:30 Pulse Ox 100 05/20/18 23:00 Constitutional: well developed and well nourished sitting in chair in dark room on RA and heparin gtt w/ sleep mask on, blinds drawn, nad Eyes: EOM intact bilaterally ENMT: Ears: no external ear abnormality Nose: no external nose abnormality Mouth: + dry oral mucous membranes Neck: no nuchal rigidity Respiratory: normal respiratory effort Auscultation: + diminished lung sounds Cardiovascular: RRR, no murmur, no edema Gastrointestinal (Abdomen): Inspection/Auscultation: normal bowel sounds Percussion/Palpation: abdomen soft; abdomen nontender Musculoskeletal: Extremities: strength 5/5 throughout Skin: no rashes, warm and dry Neurologic: mathew, fluent speech, no tremor; gait not assessed Psychiatric: Mood: + depressed mood Genitourinary: no cuadra Results & Data Laboratory Results Abnormal lab results 05/20/18 05/20/18 05/20/18 Range/Units 10:15 10:15 10:18 RBC 4.55 L (4.7-6.1) M/uL Hgb 12.5 L (14.0-18.0) g/dL Hct 37.3 L (42-52) % Plt Count 129 L (130-400) K/uL Immature Gran # (Auto) 0.03 H (0.00-0.02) K/uL Lymph # (Auto) 0.97 L (1.2-3.4) K/uL PT 15.4 H (9.0-12.0) Seconds INR 1.6 H (0.9-1.1) BUN 45 H (7-18) mg/dl Creatinine 3.17 H (0.6-1.4) mg/dl POC Glucose (70-99) AST 39 H (15-37) U/L Lipase 69 L (73-393) U/L 05/20/18 05/20/18 Range/Units 16:44 20:13 RBC (4.7-6.1) M/uL Hgb (14.0-18.0) g/dL Hct (42-52) % Plt Count (130-400) K/uL Immature Gran # (Auto) (0.00-0.02) K/uL Lymph # (Auto) (1.2-3.4) K/uL PT (9.0-12.0) Seconds INR (0.9-1.1) BUN (7-18) mg/dl Creatinine (0.6-1.4) mg/dl POC Glucose 261 H 276 H (70-99) AST (15-37) U/L Lipase (73-393) U/L
[2018-05-21 08:03] LABS: Hematocrit (blood only) 36.8 % (42-52); Hemoglobin 12.1 g/dL (14.0-18.0); Mean Corpuscular Hgb Conc 32.9 g/dL (32-36); Mean Platelet Volume 9.3 fL (7.4-10.4); Platelet Count 122 K/uL (130-400); RDW Coefficient of Variation 13.7 % (11.5-14.5); RDW Standard Deviation 41.4 fL (36.4-46.3); Red Blood Count 4.49 M/uL (4.7-6.1); White Blood Count 5.51 K/uL (4.8-10.8)
[2018-05-21 08:19] LABS: Partial Thromboplastin Ratio 2.2
[2018-05-21 08:36] LABS: BUN Creatinine Ratio 15.9 (10-20); Calcium 9.2 mg/dl (8.5-10.1); Creatinine Clr Calc Pharmacy 26.4 ml/min; Est GFR (African American) 21.4; Est GFR (Non-African American) 18.5; Potassium 4.1 mmol/L (3.5-5.1)
[2018-05-21 08:39] LABS: Partial Thromboplastin Time 57.7 Seconds (21.0-31.0)
[2018-05-21] MEDS: INSULIN ASPART 100 UNITS/ML 3 ML PEN SC SCH ×4 (08:44→20:50)
[2018-05-21] MEDS: INSULIN GLARGINE SOLOSTAR 100 UNITS/ML 3 ML PEN SC SCH ×2 (08:46→20:50)
[2018-05-21] MEDS: CHOLECALCIFEROL 1,000 UNITS TAB PO SCH (08:47)
[2018-05-21] MEDS: METOPROLOL SUCC 50MG EXT REL TAB PO SCH (08:48)
[2018-05-21] MEDS: ASPIRIN 81 MG ECTAB PO SCH (08:48)
[2018-05-21] MEDS: PANTOprazole 40 MG TAB PO SCH (08:48)
[2018-05-21] MEDS: GABAPENTIN 100 MG CAP PO SCH ×3 (10:24→20:49)
[2018-05-21 12:48] LABS: Appearance Urine Clear (Clear); Bacteria Urine Automated Negative (Negative); Bilirubin Urine Negative (Negative); Color Urine Yellow; Glucose Urine UA Negative (Negative); Ketones Urine Negative (Negative); Leukocyte Esterase Urine Negative (Negative); Nitrite Urine Negative (Negative); Protein Urine 2+ (Negative); Specific Gravity Urine 1.016 (1.000-1.030); Urobilinogen Urine Negative (Negative); WBC Urine Automated 0 /hpf (0-5)
--- NOTE | 2018-05-21 14:32 | Cardiology Progress Note ---
Date of Service May 21, 2018 Assessment & Plan (1) Hypotension: Labile blood pressure readings within acceptable range. No recurrent symptomatic hypotension. We will continue to hold diuretic therapy. Continue other cardiovascular medications as previously ordered. (2) Volume depletion: (3) NICM (nonischemic cardiomyopathy): Patient appears compensated. Chest x-ray is clear. Follow daily weight and fluid balance. Repeat BMP in a.m. Hold diuretic therapy. We will utilize diuretic therapy as needed. (4) Acute kidney injury superimposed on CKD: (5) Aortic stenosis: Moderate per echocardiogram 01/2018, mild per cardiac catheterization 2017. Subjective Patient seen and examined at the bedside. No recurrent symptomatic hypotension since admission. Blood pressure remains labile however within acceptable range. Diuretic therapy on hold. Denies orthopnea, PND, or edema. No palpitations. Patient notes a positional component to his dizziness. Also notes some dizziness when he closes his eyes and then opens them. No chest discomfort or unusual shortness of breath. Offers no complaints currently. Review of Systems All systems reviewed & are unremarkable except as noted in HPI & below Physical Exam 2 Vital Signs (Past 24 Hours): Last Vital Signs Temp 36.7 C 05/21/18 07:54 Pulse 66 05/21/18 07:54 Resp 18 05/21/18 07:54 BP 112/69 05/21/18 07:54 Pulse Ox 98 05/21/18 07:54 Physical Exam: General: NAD, AAO x3, well nourished. HEENT: Normocephalic. Atraumatic. Conjunctiva pink, no scleral icterus. Neck: No carotid bruits, the carotid upstrokes are brisk. No JVD. No HJR Heart: Regular normal S-1 and S-2 no S-3 or S-4 gallop. 2/6 low pitched mid peaking systolic ejection murmur heard best at the right second intercostal space with radiation to the base of the right carotid artery. No rub appreciated. PMI is not displaced. No RV heave. Lungs: Clear bilateral without rales , rhonchi, or wheeze. Abdomen: Normal bowel sounds. Soft. Nontender. No masses or organomegaly. No abdominal bruits. Extremities: No clubbing, cyanosis, or edema. Pulses: radial=2/4, Dorsalis pedis =2/4, posterior tibial=2/4. Neuro: Cranial nerves grossly intact. No focal motor deficit. _ (1) Hypotension Hypotension type: hypotension due to hypovolemia Trimester: Qualified Code( s): I95.89 - Other hypotension; E86.1 - Hypovolemia (2) Aortic stenosis Cardiac valve disease etiology: nonrheumatic Qualified Code(s): I35.0 - Nonrheumatic aortic (valve) stenosis
--- NOTE | 2018-05-21 15:31 | Neurology Progress Note ---
Date of Service May 21, 2018 Assessment & Plan (1) Dizziness: 1. dizziness- orthostatic blood pressures would be helpful at varying times of the day 2. carotid doppler- for vessels of neck -CTA unable do to Kidney function 3. CT head IAC normal exam. 4. PT for Riri r/o element of vertigo- no vertigo with manipulation however some nystagmus seen 5. out patient ENT referral for hearing loss and tinnitus 6. cardiology for optimizing HTN medications- ICD placed with EF 45-50% now- interregation done yesterday 7. history of peripheral neuropathy pain in feet on gabepentin- further evaluation with EMG as outpatient 8. this is likely multi symptom etiology which known peripheral neuropathy, hypo tensive episodes, hearing loss with tinnitus 9. no further neurologist imaging needed at this time 10. discharge once stable medically Supervising Physician Co-Signing Physician Notes I have seen and discussed above patient with Dr Scar Pennington. Patient was seen and examined. Agree with Roxann Eldridge As noted below. The vertigo / dysequilibirum is largely positional in nature on examine. Patient also reports this has been chronic for > 1year. This would certainly suggest any acute or ASTR[employer]IST etiology. He is able to sit upright in bed. No ataxia with finger to nose. No skew deviation. No nystagmus noted although patient had difficulty with this. He became dizzy with sitting upright and with quick rotational movements. I do not believe patient needs any vessel imaging as his symptoms and chronicity are strongly suggestive of a peripheral etiology. His blood pressures were low this afternoon and hypotension / orthostasis maybe contributing. 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 CT Negative for any pontine angle mass. Patient would benefit for vestibular rehab. Can also try Phenergan 25 mg PO Q8hr for symptom management. Patient did report some depressive thoughts to me. " I should just walk into the [facility] and never come back". He voiced frustration with his chronic dizziness. May benefit from seeing outpatient psychology or psychiatry. Please call me with any further questions. Martha Pedro is a 63 year old male presents from the outpatient cardiology clinic secondary to dizziness, hypotension, SOB. He was at [facility] for a device interrogation which showed 99% biventricular pacing. Due to symptoms of lightheadedness and hypotension he was seen by Isabel Bergman PA-C was an acute visit. Patient reports hypotensive blood pressures this morning as well as hypotension during his office visit at [facility]. Notes lightheadedness primarily in the a.m. after he takes his medications. Admits that he does not eat breakfast nor does he eat prior to taking medications usually. He was recently hospitalized with shortness of breath and dizziness, discharged from [facility] 05/17/18. They reduced his diuretic and currently it has been stopped. He is a history of hearing loss and states sometime the lightheaded is while rolling in bed. he states PT was in to see him and he was dizzy with positioning. He has chronic neck pain so he couldn't take some of the positioning. denies CP, SOB, abdominal pain, one sided weakness, numbness tingling, N, V, vision changes, falls in last 2 weeks. he does have a history of peripheral neuropathy Physical Exam 2 Vital Signs (Past 24 Hours): Last Vital Signs Temp 36.6 C 05/21/18 15:19 Pulse 84 05/21/18 15:19 Resp 18 05/21/18 15:19 BP 96/63 L 05/21/18 15:19 Pulse Ox 95 05/21/18 15:19 Gen: alert NAD PERRL/EOMI nystagmus laterally lungs CTA CV loud opening systolic murmur finger to nose no bipass Results & Data Laboratory Results Abnormal lab results 05/20/18 05/20/18 05/21/18 Range/Units 16:44 20:13 07:48 RBC 4.49 L (4.7-6.1) M/uL Hgb 12.1 L (14.0-18.0) g/dL Hct 36.8 L (42-52) % Plt Count 122 L (130-400) K/uL APTT (21.0-31.0) Seconds BUN (7-18) mg/dl Creatinine (0.6-1.4) mg/dl POC Glucose 261 H 276 H (70-99) Urine Protein (Negative) U Epithel Cells (Auto) (0-5) /lpf 05/21/18 05/21/18 05/21/18 Range/Units 07:48 07:48 10:00 RBC (4.7-6.1) M/uL Hgb (14.0-18.0) g/dL Hct (42-52) % Plt Count (130-400) K/uL APTT 57.7 H* (21.0-31.0) Seconds BUN 53 H (7-18) mg/dl Creatinine 3.33 H (0.6-1.4) mg/dl POC Glucose (70-99) Urine Protein 2+ H (Negative) U Epithel Cells (Auto) 10-20 H (0-5) /lpf 05/21/18 Range/Units 11:06 RBC (4.7-6.1) M/uL Hgb (14.0-18.0) g/dL Hct (42-52) % Plt Count (130-400) K/uL APTT (21.0-31.0) Seconds BUN (7-18) mg/dl Creatinine (0.6-1.4) mg/dl POC Glucose 173 H (70-99) Urine Protein (Negative) U Epithel Cells (Auto) (0-5) /lpf Diagnostic Findings CT head-Chronic small vessel ischemic change. No acute intracranial abnormality. CT IAC-Normal CT evaluation of the temporal bones.
[2018-05-21] MEDS: WARFARIN SOD 5 MG TAB PO SCH (16:52)
[2018-05-21] MEDS: HEPARIN LOW DOSE DEXTROSE 25,000 UNITS/500 ML IV SCH (18:32)
[2018-05-21] MEDS: ROSUVASTATIN CALCIUM 20 MG TAB PO SCH (20:49)
--- NOTE | 2018-05-21 22:08 | Hospitalist Progress Note ---
Date of Service May 21, 2018 Assessment & Plan (1) Dizziness: Probably secondary to volume depletion + orthostasis. Improved. (2) Chronic systolic (congestive) heart failure: Nonischemic cardiomyopathy with chronic left ventricular systolic heart failure. Compensated. (3) CAD (coronary artery disease): History nonobstructive coronary disease. No anginal symptoms. (4) Hypertension: Follow and titrate meds. (5) CKD (chronic kidney disease) stage 4, GFR 15-29 ml/min: CKD IV. Creatinine at time of admission 3.17. Baseline creatinine seems to run in mid-high 2's. Nephrology consulted. Diuretics being held. Follow. (6) DM type 2 (diabetes mellitus, type 2): Blood sugars fluctuating. FBS 78. Follow and titrate Rx. (7) DVT prophylaxis: IV heparin / titrate warfarin. (8) Discharge planning issues: Anticipated discharge to home. Subjective Recheck for multiple problems. Pt seen in his room around 1650. Feels better. Lightheadedness / dizziness improved. No chest pain. No cough or SOB. No nausea or vomiting. Physical Exam 2 Vital Signs (Past 24 Hours): Last Vital Signs Temp 36.6 C 05/21/18 15:19 Pulse 84 05/21/18 15:19 Resp 18 05/21/18 15:19 BP 156/93 H 05/21/18 20:59 Pulse Ox 95 05/21/18 15:19 Constitutional: WD/WN, vitals as above Respiratory: normal respiratory effort, lungs clear to auscultation Cardiovascular: Rate/Rhythm: regular rate and regular rhythm Heart Sounds: no gallop Vessels: no JVD Extremities: no edema Gastrointestinal (Abdomen): Inspection/Auscultation: normal bowel sounds Percussion/Palpation: abdomen soft; abdomen nontender Psychiatric: A+Ox3, euthymic affect Results & Data Laboratory Results Laboratory Results - last 24 hr 05/21/18 05/21/18 05/21/18 00:41 07:39 07:48 WBC 5.51 RBC 4.49 L Hgb 12.1 L Hct 36.8 L MCV 82.0 MCH 26.9 MCHC 32.9 RDW Std Deviation 41.4 RDW Coeff of Joey 13.7 Plt Count 122 L MPV 9.3 APTT 30.8 PTT Ratio 1.2 Sodium Potassium Chloride Carbon Dioxide Anion Gap BUN Creatinine Est Cr Clr Drug Dosing Est GFR ( Amer) Est GFR (Non-Af Amer) BUN/Creatinine Ratio Glucose POC Glucose 78 Calcium Urine Color Urine Appearance Urine pH Ur Specific [place] Urine Protein Urine Glucose (UA) Urine Ketones Urine Blood Urine Nitrite Urine Bilirubin Urine Urobilinogen Ur Leukocyte Esterase Urine WBC (Auto) Urine RBC (Auto) U Hyaline Cast (Auto) U Epithel Cells (Auto) Urine Bacteria (Auto) 05/21/18 05/21/18 05/21/18 07:48 07:48 10:00 WBC RBC Hgb Hct MCV MCH MCHC RDW Std Deviation RDW Coeff of Joye Plt Count MPV APTT 57.7 H* PTT Ratio 2.2 Sodium 139 Potassium 4.1 Chloride 105 Carbon Dioxide 27 Anion Gap 7.0 BUN 53 H Creatinine 3.33 H Est Cr Clr Drug Dosing 26.4 Est GFR ( Amer) 21.4 Est GFR (Non-Af Amer) 18.5 BUN/Creatinine Ratio 15.9 Glucose 73 POC Glucose Calcium 9.2 Urine Color Yellow Urine Appearance Clear Urine pH 6.0 Ur Specific [place] 1.016 Urine Protein 2+ H Urine Glucose (UA) Negative Urine Ketones Negative Urine Blood Negative Urine Nitrite Negative Urine Bilirubin Negative Urine Urobilinogen Negative Ur Leukocyte Esterase Negative Urine WBC (Auto) 0 Urine RBC (Auto) 0-4 U Hyaline Cast (Auto) 1-5 U Epithel Cells (Auto) 10-20 H Urine Bacteria (Auto) Negative 05/21/18 05/21/18 05/21/18 11:06 16:07 20:23 WBC RBC Hgb Hct MCV MCH MCHC RDW Std Deviation RDW Coeff of Joey Plt Count MPV APTT PTT Ratio Sodium Potassium Chloride Carbon Dioxide Anion Gap BUN Creatinine Est Cr Clr Drug Dosing Est GFR ( Amer) Est GFR (Non-Af Amer) BUN/Creatinine Ratio Glucose POC Glucose 173 H 148 H 288 H Calcium Urine Color Urine Appearance Urine pH Ur Specific [place] Urine Protein Urine Glucose (UA) Urine Ketones Urine Blood Urine Nitrite Urine Bilirubin Urine Urobilinogen Ur Leukocyte Esterase Urine WBC (Auto) Urine RBC (Auto) U Hyaline Cast (Auto) U Epithel Cells (Auto) Urine Bacteria (Auto) _ (1) Hypertension Hypertension type: essential hypertension Qualified Code(s): I10 - Essential (primary) hypertension (2) DM type 2 (diabetes mellitus, type 2) Diabetes mellitus vermin exterminator insulin use: with vermin exterminator use Diabetes mellitus complication status: with neurologic complications Diabetes mellitus complication detail: with unspecified neuropathy Diabetic retinopathy severity : Proliferative retinopathy type: Diabetes mellitus macular edema: Laterality: Chronic kidney disease stage: Qualified Code(s): E11.40 - Type 2 diabetes mellitus with diabetic neuropathy, unspecified; Z79.4 - terminal carman ( current) use of insulin
[2018-05-22] MEDS: ISOSORBIDE DINITRATE 10 MG TAB PO SCH ×3 (05:34→17:27)
[2018-05-22 06:59] LABS: Hematocrit (blood only) 35.1 % (42-52); Hemoglobin 11.6 g/dL (14.0-18.0); Mean Corpuscular Volume 82.4 fL (80-100); Mean Platelet Volume 9.6 fL (7.4-10.4); Platelet Count 128 K/uL (130-400); Red Blood Count 4.26 M/uL (4.7-6.1); White Blood Count 4.13 K/uL (4.8-10.8)
[2018-05-22 07:13] LABS: INR 1.5 (0.9-1.1); Partial Thromboplastin Ratio 1.4; Partial Thromboplastin Time 35.1 Seconds (21.0-31.0); Prothrombin Time 15.1 Seconds (9.0-12.0)
[2018-05-22 07:30] LABS: BUN Creatinine Ratio 15.3 (10-20); Calcium 9.6 mg/dl (8.5-10.1); Creatinine Clr Calc Pharmacy 25.9 ml/min; Est GFR (Non-African American) 18.1; Potassium 4.1 mmol/L (3.5-5.1)
[2018-05-22] MEDS: INSULIN ASPART 100 UNITS/ML 3 ML PEN SC SCH ×4 (08:55→20:40)
[2018-05-22] MEDS: INSULIN GLARGINE SOLOSTAR 100 UNITS/ML 3 ML PEN SC SCH (08:56)
[2018-05-22] MEDS: GABAPENTIN 100 MG CAP PO SCH ×3 (08:58→20:43)
[2018-05-22] MEDS: ASPIRIN 81 MG ECTAB PO SCH (08:58)
[2018-05-22] MEDS: METOPROLOL SUCC 50MG EXT REL TAB PO SCH (08:58)
[2018-05-22] MEDS: CHOLECALCIFEROL 1,000 UNITS TAB PO SCH (08:59)
[2018-05-22] MEDS: PANTOprazole 40 MG TAB PO SCH (08:59)
[2018-05-22] MEDS ORDERED: HEPARIN IV BOLUS 4,500 UNITS in SYRINGE 0 ML IV ONE (09:30)
--- NOTE | 2018-05-22 11:48 | Hospitalist Progress Note ---
Date of Service May 22, 2018 Assessment & Plan (1) Dizziness: Probably secondary to volume depletion + orthostasis. Improved. (2) Chronic systolic (congestive) heart failure: Nonischemic cardiomyopathy with chronic left ventricular systolic heart failure. Cardiology consulted. Diuretics on hold. Remains compensated. (3) CAD (coronary artery disease): History nonobstructive coronary disease. No anginal symptoms. (4) Hypertension: Follow and titrate meds. (5) CKD (chronic kidney disease) stage 4, GFR 15-29 ml/min: CKD IV. Creatinine at time of admission 3.17. Baseline creatinine seems to run in mid-high 2's. Nephrology consulted. Diuretics being held. Creatinine today 3.39. Follow. (6) DM type 2 (diabetes mellitus, type 2): Not-well controlled. Hgb A1C was 9.4 on 05/15. Blood sugars fluctuating during this hospital stay. FBS yesterday was 78. FBS today = 237. Glucose @ 1108 was 440 after eating some pancakes for breakfast. Will utilize insulin infusion to achieve glycemic control, then transition back to SQ Lantus + NovoLog. Follow and titrate Rx. (7) DVT prophylaxis: IV heparin / titrate warfarin. (8) Discharge planning issues: Anticipated discharge to home. Subjective Recheck for multiple problems. Pt seen in his room around 1135. Blood sugars running high. Had 2 pancakes for breakfast. No chest pain. No cough or SOB. No nausea or vomiting. No diarrhea. No urinary symptoms. Physical Exam 2 Vital Signs (Past 24 Hours): Last Vital Signs Temp 36.6 C 05/22/18 07:48 Pulse 67 05/22/18 07:48 Resp 18 05/22/18 07:48 BP 162/79 H 05/22/18 07:48 Pulse Ox 97 05/22/18 07:48 Constitutional: WD/WN, vitals as above Respiratory: normal respiratory effort, lungs clear to auscultation Cardiovascular: Rate/Rhythm: regular rate and regular rhythm Heart Sounds: + murmur (II/ systolic murmur at base); no gallop Vessels: no JVD Extremities: no edema Gastrointestinal (Abdomen): Inspection/Auscultation: normal bowel sounds Percussion/Palpation: abdomen soft; abdomen nontender Psychiatric: A+Ox3, euthymic affect Results & Data Laboratory Results Laboratory Results - last 24 hr 05/21/18 05/21/18 05/22/18 16:07 20:23 06:30 WBC 4.13 L RBC 4.26 L Hgb 11.6 L Hct 35.1 L MCV 82.4 MCH 27.2 MCHC 33.0 RDW Std Deviation 42.0 RDW Coeff of Joey 14.0 Plt Count 128 L MPV 9.6 PT INR APTT PTT Ratio Sodium Potassium Chloride Carbon Dioxide Anion Gap BUN Creatinine Est Cr Clr Drug Dosing Est GFR ( Amer) Est GFR (Non-Af Amer) BUN/Creatinine Ratio Glucose POC Glucose 148 H 288 H Calcium 05/22/18 05/22/18 05/22/18 06:30 06:30 07:25 WBC RBC Hgb Hct MCV MCH MCHC RDW Std Deviation RDW Coeff of Joey Plt Count MPV PT 15.1 H INR 1.5 H APTT 35.1 H PTT Ratio 1.4 Sodium 138 Potassium 4.1 Chloride 104 Carbon Dioxide 25 Anion Gap 9.0 BUN 52 H Creatinine 3.39 H Est Cr Clr Drug Dosing 25.9 Est GFR ( Amer) 21.0 Est GFR (Non-Af Amer) 18.1 BUN/Creatinine Ratio 15.3 Glucose 242 H POC Glucose 237 H Calcium 9.6 05/22/18 05/22/18 11:08 11:10 WBC RBC Hgb Hct MCV MCH MCHC RDW Std Deviation RDW Coeff of Joey Plt Count MPV PT INR APTT PTT Ratio Sodium Potassium Chloride Carbon Dioxide Anion Gap BUN Creatinine Est Cr Clr Drug Dosing Est GFR ( Amer) Est GFR (Non-Af Amer) BUN/Creatinine Ratio Glucose POC Glucose 440 H* 477 H* Calcium _ (1) Hypertension Hypertension type: essential hypertension Qualified Code(s): I10 - Essential (primary) hypertension (2) DM type 2 (diabetes mellitus, type 2) 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
[2018-05-22] MEDS ORDERED: DC ALL PREVIOUSLY ORDERED DIABETES MEDS ONE (11:49)
[2018-05-22] MEDS ORDERED: MODERATE STRESS LEVEL ONE (11:49)
--- NOTE | 2018-05-22 11:50 | Cardiology Progress Note ---
Date of Service May 22, 2018 Assessment & Plan (1) Hypotension: Labile blood pressure readings within acceptable range. No recurrent symptomatic hypotension. We will continue to hold diuretic therapy patient was using diuretic on 3 times weekly basis at home. May need to revert to as needed basis on discharge continue other cardiovascular medications as previously ordered. (2) Volume depletion: (3) NICM (nonischemic cardiomyopathy): Patient appears compensated. Chest x-ray is clear. Follow daily weight and fluid balance. Repeat BMP in a.m. Hold diuretic therapy. We will utilize diuretic therapy as needed. (4) Acute kidney injury superimposed on CKD: (5) Aortic stenosis: Moderate per echocardiogram 01/2018, mild per cardiac catheterization 2017. (6) Nonischemic cardiomyopathy: Clinically stable with improved ejection fraction gradually (7) PAF (paroxysmal atrial fibrillation): EKG reveals AV sequential pacing. Patient is on chronic warfarin therapy (8) Presence of combination internal cardiac defibrillator (ICD) and pacemaker: Subjective Patient seen and examined at the bedside. Very mild dizziness on standing. Blood pressures have been somewhat labile. Notes no worsening edema chest pains tachypalpitations Physical Exam 2 Vital Signs (Past 24 Hours): Last Vital Signs Temp 36.6 C 05/22/18 07:48 Pulse 67 05/22/18 07:48 Resp 18 05/22/18 07:48 BP 162/79 H 05/22/18 07:48 Pulse Ox 97 05/22/18 07:48 Physical Exam: General: NAD, AAO x3, well nourished. HEENT: Normocephalic. Atraumatic. Conjunctiva pink, no scleral icterus. Neck: No carotid bruits, the carotid upstrokes are brisk. No JVD. No HJR Heart: Regular normal S-1 and S-2 no S-3 or S-4 gallop. 2/6 low pitched mid peaking systolic ejection murmur heard best at the right second intercostal space with radiation to the base of the right carotid artery. No rub appreciated. PMI is not displaced. No RV heave. Lungs: Clear bilateral without rales , rhonchi, or wheeze. Abdomen: Normal bowel sounds. Soft. Nontender. No masses or organomegaly. No abdominal bruits. Extremities: No clubbing, cyanosis, or edema. Pulses: radial=2/4, Dorsalis pedis =2/4, posterior tibial=2/4. Neuro: Cranial nerves grossly intact. No focal motor deficit. Results & Data Laboratory Results Laboratory Results - last 24 hr 05/21/18 05/21/18 05/21/18 10:00 16:07 20:23 WBC RBC Hgb Hct MCV MCH MCHC RDW Std Deviation RDW Coeff of Joey Plt Count MPV PT INR APTT PTT Ratio Sodium Potassium Chloride Carbon Dioxide Anion Gap BUN Creatinine Est Cr Clr Drug Dosing Est GFR ( Amer) Est GFR (Non-Af Amer) BUN/Creatinine Ratio Glucose POC Glucose 148 H 288 H Calcium Urine Color Yellow Urine Appearance Clear Urine pH 6.0 Ur Specific [place] 1.016 Urine Protein 2+ H Urine Glucose (UA) Negative Urine Ketones Negative Urine Blood Negative Urine Nitrite Negative Urine Bilirubin Negative Urine Urobilinogen Negative Ur Leukocyte Esterase Negative Urine WBC (Auto) 0 Urine RBC (Auto) 0-4 U Hyaline Cast (Auto) 1-5 U Epithel Cells (Auto) 10-20 H Urine Bacteria (Auto) Negative 05/22/18 05/22/18 05/22/18 06:30 06:30 06:30 WBC 4.13 L RBC 4.26 L Hgb 11.6 L Hct 35.1 L MCV 82.4 MCH 27.2 MCHC 33.0 RDW Std Deviation 42.0 RDW Coeff of Joey 14.0 Plt Count 128 L MPV 9.6 PT 15.1 H INR 1.5 H APTT 35.1 H PTT Ratio 1.4 Sodium 138 Potassium 4.1 Chloride 104 Carbon Dioxide 25 Anion Gap 9.0 BUN 52 H Creatinine 3.39 H Est Cr Clr Drug Dosing 25.9 Est GFR ( Amer) 21.0 Est GFR (Non-Af Amer) 18.1 BUN/Creatinine Ratio 15.3 Glucose 242 H POC Glucose Calcium 9.6 Urine Color Urine Appearance Urine pH Ur Specific [place] Urine Protein Urine Glucose (UA) Urine Ketones Urine Blood Urine Nitrite Urine Bilirubin Urine Urobilinogen Ur Leukocyte Esterase Urine WBC (Auto) Urine RBC (Auto) U Hyaline Cast (Auto) U Epithel Cells (Auto) Urine Bacteria (Auto) 05/22/18 05/22/18 05/22/18 07:25 11:08 11:10 WBC RBC Hgb Hct MCV MCH MCHC RDW Std Deviation RDW Coeff of Joey Plt Count MPV PT INR APTT PTT Ratio Sodium Potassium Chloride Carbon Dioxide Anion Gap BUN Creatinine Est Cr Clr Drug Dosing Est GFR ( Amer) Est GFR (Non-Af Amer) BUN/Creatinine Ratio Glucose POC Glucose 237 H 440 H* 477 H* Calcium Urine Color Urine Appearance Urine pH Ur Specific [place] Urine Protein Urine Glucose (UA) Urine Ketones Urine Blood Urine Nitrite Urine Bilirubin Urine Urobilinogen Ur Leukocyte Esterase Urine WBC (Auto) Urine RBC (Auto) U Hyaline Cast (Auto) U Epithel Cells (Auto) Urine Bacteria (Auto) _ (1) Hypotension Hypotension type: hypotension due to hypovolemia Trimester: Qualified Code( s): I95.89 - Other hypotension; E86.1 - Hypovolemia (2) Aortic stenosis Cardiac valve disease etiology: nonrheumatic Qualified Code(s): I35.0 - Nonrheumatic aortic (valve) stenosis
[2018-05-22] MEDS ORDERED: INSULIN PROTOCOL GOAL RANGE SCH (12:00)
[2018-05-22] MEDS ORDERED: INSULIN HUMAN REGULAR IV BOLUS 2.5 UNITS in SYRINGE 0 ML IV ONE (12:30)
[2018-05-22] MEDS ORDERED: INSULIN REGULAR 250 UNITS in SODIUM CHLORIDE 0.9% 247.5 ML IV SCH (12:30)
[2018-05-22 15:52] LABS: Partial Thromboplastin Ratio 3.4
[2018-05-22 16:34] LABS: Partial Thromboplastin Time 88.1 Seconds (21.0-31.0)
[2018-05-22] MEDS: HEPARIN LOW DOSE DEXTROSE 25,000 UNITS/500 ML IV SCH (17:24)
[2018-05-22] MEDS: WARFARIN SOD 5 MG TAB PO SCH (17:27)
[2018-05-22] MEDS: ROSUVASTATIN CALCIUM 20 MG TAB PO SCH (20:43)
[2018-05-22] MEDS ORDERED: INSULIN GLARGINE SOLOSTAR 100 UNITS/ML 3 ML PEN SC SCH (21:00)
[2018-05-22 23:55] LABS: Partial Thromboplastin Ratio 2.1
[2018-05-23 00:08] LABS: Partial Thromboplastin Time 55.8 Seconds (21.0-31.0)
[2018-05-23] MEDS: ISOSORBIDE DINITRATE 10 MG TAB PO SCH ×3 (06:01→18:03)
[2018-05-23 06:16] LABS: BUN Creatinine Ratio 15.4 (10-20); Calcium 9.2 mg/dl (8.5-10.1); Creatinine Clr Calc Pharmacy 27.9 ml/min; Est GFR (African American) 22.9; Est GFR (Non-African American) 19.8
[2018-05-23 06:26] LABS: INR 1.6 (0.9-1.1); Prothrombin Time 15.8 Seconds (9.0-12.0)
[2018-05-23 06:33] LABS: Partial Thromboplastin Ratio 2.1
[2018-05-23] MEDS: CARBOHYDRATES FOR HYPOGLYCEMIA PO PRN (07:38)
[2018-05-23] MEDS: INSULIN ASPART 100 UNITS/ML 3 ML PEN SC SCH ×4 (08:38→21:28)
[2018-05-23] MEDS: GABAPENTIN 100 MG CAP PO SCH ×3 (08:39→21:30)
[2018-05-23] MEDS: CHOLECALCIFEROL 1,000 UNITS TAB PO SCH (08:39)
[2018-05-23] MEDS: ASPIRIN 81 MG ECTAB PO SCH (08:39)
[2018-05-23] MEDS: PANTOprazole 40 MG TAB PO SCH (08:40)
[2018-05-23] MEDS: METOPROLOL SUCC 50MG EXT REL TAB PO SCH (08:40)
--- NOTE | 2018-05-23 14:32 | Hospitalist Progress Note ---
Date of Service May 23, 2018 Assessment & Plan (1) Dizziness: Possibly secondary to volume depletion + orthostasis. Consider autonomic neuropathy. Improved, but best to monitor for arrhythmias. Will transfer to Med-Surg with telemetry. (2) Chronic systolic (congestive) heart failure: Nonischemic cardiomyopathy with chronic left ventricular systolic heart failure. Cardiology consulted. Diuretics on hold. Remains compensated. (3) CAD (coronary artery disease): History nonobstructive coronary disease. No anginal symptoms. (4) PAF (paroxysmal atrial fibrillation): Currently in paced rhythm. INR low. Adjust warfarin. Continue IV heparin. (5) Hypertension: Follow and titrate meds. (6) CKD (chronic kidney disease) stage 4, GFR 15-29 ml/min: CKD IV. Creatinine at time of admission 3.17. Baseline creatinine seems to run in mid-high 2's. Nephrology consulted. Diuretics being held. Creatinine today 3.15. Follow. (7) DM type 2 (diabetes mellitus, type 2): Not-well controlled. Hgb A1C was 9.4 on 05/15. Blood sugars fluctuating during this hospital stay with values > 400 yesterday after eating pancakes. Utilized insulin infusion to achieve glycemic control, then transitioned back to SQ Lantus + NovoLog. Follow and titrate Rx. (8) DVT prophylaxis: IV heparin / titrate warfarin. (9) Discharge planning issues: Anticipated discharge to home. Family Medicine follow-up with Dr. Butts. Subjective Recheck for multiple problems. Pt seen in his room around 1020. Blood sugars improved by last evening. Transitioned from insulin infusion to SQ insulin. Blood sugars low this morning, but ate breakfast and feels fine. No chest pain. No cough or SOB. No nausea or vomiting. No diarrhea. No urinary symptoms. Physical Exam 2 Vital Signs (Past 24 Hours): Last Vital Signs Temp 36.8 C 05/23/18 08:08 Pulse 63 05/23/18 08:08 Resp 18 05/23/18 08:08 BP 132/67 05/23/18 08:08 Pulse Ox 96 05/23/18 08:08 Constitutional: WD/WN, vitals as above Respiratory: normal respiratory effort, lungs clear to auscultation Cardiovascular: Rate/Rhythm: regular rate and regular rhythm Heart Sounds: + murmur (II/ systolic murmur at base); no gallop Vessels: no JVD Extremities: + edema (trace pretibial) Gastrointestinal (Abdomen): Inspection/Auscultation: normal bowel sounds Percussion/Palpation: abdomen soft; abdomen nontender Musculoskeletal: Extremities: no cyanosis Psychiatric: A+Ox3, euthymic affect Results & Data Laboratory Results Laboratory Results - last 24 hr 05/22/18 05/22/18 05/23/18 20:30 23:25 05:22 PT 15.8 H INR 1.6 H APTT 55.8 H* PTT Ratio 2.1 Sodium Potassium Chloride Carbon Dioxide Anion Gap BUN Creatinine Est Cr Clr Drug Dosing Est GFR ( Amer) Est GFR (Non-Af Amer) BUN/Creatinine Ratio Glucose POC Glucose 220 H Calcium 05/23/18 05/23/18 05/23/18 05:22 05:22 07:32 PT INR APTT 54.0 H* PTT Ratio 2.1 Sodium 139 Potassium 4.0 Chloride 108 H Carbon Dioxide 28 Anion Gap 3.0 BUN 49 H Creatinine 3.15 H Est Cr Clr Drug Dosing 27.9 Est GFR ( Amer) 22.9 Est GFR (Non-Af Amer) 19.8 BUN/Creatinine Ratio 15.4 Glucose 65 L POC Glucose 61 L* Calcium 9.2 05/23/18 05/23/18 05/23/18 07:33 07:48 11:25 PT INR APTT PTT Ratio Sodium Potassium Chloride Carbon Dioxide Anion Gap BUN Creatinine Est Cr Clr Drug Dosing Est GFR ( Amer) Est GFR (Non-Af Amer) BUN/Creatinine Ratio Glucose POC Glucose 63 L* 74 191 H Calcium 05/23/18 16:12 PT INR APTT PTT Ratio Sodium Potassium Chloride Carbon Dioxide Anion Gap BUN Creatinine Est Cr Clr Drug Dosing Est GFR ( Amer) Est GFR (Non-Af Amer) BUN/Creatinine Ratio Glucose POC Glucose 291 H Calcium _ (1) Hypertension Hypertension type: essential hypertension Qualified Code(s): I10 - Essential (primary) hypertension (2) DM type 2 (diabetes mellitus, type 2) 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
--- NOTE | 2018-05-23 15:35 | Progress Note ---
DATE: 05/23/2018 SUBJECTIVE: Overnight, no new issues. He feels quite comfortable. Denies any chest pain, nausea, vomiting, shortness of breath, lightheadedness, or dizziness. He is having his meal without any problem. PHYSICAL EXAMINATION: VITAL SIGNS: Most recent blood pressure is 132/67, pulse oximetry 96% on room air, temperature 36.8, pulse rate 63 per minute, respiratory rate 18 per minute. HEENT: Mucous membrane is moist. NECK: Supple. No jugular venous distention. CHEST: Bilateral clear to auscultation. CARDIOVASCULAR: S1 and S2 regular. ABDOMEN: Soft, nontender. EXTREMITIES: No edema. LABORATORY TESTS: Reviewed in detail. Sodium 139, chloride 108, BUN 49, creatinine 3.15. Creatinine has been relatively stable in the low 3s now for more than 10 days and appears to be his baseline. Hemoglobin 11.6, platelet count 128. ASSESSMENT AND PLAN: 1. Acute kidney injury on superimposed chronic kidney disease IV. However, I think this is almost entirely chronic kidney disease progression and this is his baseline. His renal prognosis is very poor given that he has had longstanding diabetes. 2. Lightheadedness. I do not think this is volume depletion. If anything, he appears to be somewhat in fluid overload status. Dizziness is most likely related to autonomic neuropathy, which is almost always present in such patients with longstanding diabetes. I do not think he can go too many days without diuretics and I would consider restarting diuretics may be tomorrow. Continue daily laboratories. [facility]
[2018-05-23] MEDS ORDERED: WARFARIN SOD 2.5 MG TAB PO SCH (16:00)
[2018-05-23] MEDS: HEPARIN LOW DOSE DEXTROSE 25,000 UNITS/500 ML IV SCH (18:02)
[2018-05-23] MEDS ORDERED: INSULIN GLARGINE 100 UNIT/ML VIAL SC SCH (21:00)
[2018-05-23] MEDS: INSULIN GLARGINE SOLOSTAR 100 UNITS/ML 3 ML PEN SC SCH (21:29)
[2018-05-23] MEDS: ROSUVASTATIN CALCIUM 20 MG TAB PO SCH (21:30)
[2018-05-24] MEDS ORDERED: Nursing to Pharmacy Communication ONE (01:00)
[2018-05-24] MEDS: INSULIN ASPART 100 UNITS/ML 3 ML PEN SC SCH ×5 (01:30→21:15)
[2018-05-24] MEDS: ISOSORBIDE DINITRATE 10 MG TAB PO SCH ×3 (06:39→17:41)
[2018-05-24 06:43] LABS: BUN Creatinine Ratio 14.7 (10-20); Creatinine Clr Calc Pharmacy 28.1 ml/min; Est GFR (African American) 22.9; Est GFR (Non-African American) 19.8; Potassium 4.3 mmol/L (3.5-5.1)
[2018-05-24 06:44] LABS: INR 1.6 (0.9-1.1); Partial Thromboplastin Ratio 1.9; Prothrombin Time 15.4 Seconds (9.0-12.0)
[2018-05-24 06:47] LABS: Partial Thromboplastin Time 49.4 Seconds (21.0-31.0)
[2018-05-24] MEDS: CARBOHYDRATES FOR HYPOGLYCEMIA PO PRN (06:51)
[2018-05-24] MEDS: PANTOprazole 40 MG TAB PO SCH (08:28)
[2018-05-24] MEDS: CHOLECALCIFEROL 1,000 UNITS TAB PO SCH (08:28)
[2018-05-24] MEDS: ASPIRIN 81 MG ECTAB PO SCH (08:30)
[2018-05-24] MEDS: GABAPENTIN 100 MG CAP PO SCH ×3 (08:30→21:14)
[2018-05-24] MEDS: METOPROLOL SUCC 50MG EXT REL TAB PO SCH (09:12)
[2018-05-24] MEDS: HEPARIN LOW DOSE DEXTROSE 25,000 UNITS/500 ML IV SCH (14:46)
[2018-05-24] MEDS: WARFARIN SOD 5 MG TAB PO SCH (17:40)
--- NOTE | 2018-05-24 17:42 | Nephrology Progress Note ---
Date of Service May 24, 2018 Assessment & Plan (1) CKD (chronic kidney disease) stage 4, GFR 15-29 ml/min: at this point w/ so many admissions, difficult to have enough time clinically to est new baseline creatinine w/o active medical issues. he appears to run in april in the high 2's, low to mid 3's for creatinine. progressive ckd 4 over past year, now bordering on ckd 5. Not really acute renal failure, just progression w/ intercurrent illnesses this fall/winter. chemistries and bp remain acceptable along w/ uop and current volume status-- small bit of edema today ua bland w/ chronic stable proteinuria, likely from dm -cont daily standing weight and <2 gm daily Na diet and FR 1.5-1.8L -defer to primary service and or to cardiology on bp meds and when to resume diuretics -- suspect will need to resume diuretics soon; ?if would be better to stop hydralazine so we could resume diuretics but defer to cardiology / primary service; no urgent indication yet -daily bmp -no acute indication for dialysis >>>he and his daughter and I had >20 min discussion about esrd; he tells me he wants to live as long as possible, be w/ family as long as possible -- given home situation w/ working nights and she not great w/ needles/ home medical care, pt favors in center HD when time comes (suspect sometime next 3-9 mos); he may well not be best txplt candidate w/ repeated hospital stays/ autonomic dysfunction -at d/c from hospital needs bmp q 1-2 wks -he has f/u appt w/ me 07/19/18 -we discussed referral as OP for AVF creation and he is willing - will place OP referral for avf w/ dr maki or if insurance limit w/ [facility] Subjective seen on rounds this am; feels improved from 05/21; walked halls cautiously; no sob ; no immediate/severe orthostatic sx. bp med held d/t d/t sbp 120s this am per pt and daughter at bedside no n/v; tolerating po. no sob. no edema. no diarrhea. no new paresthesias. no generalized weakness. no chest pain. no voiding c/o no rash. no f/c. no focal numbness/weakness. no acute vision changes. Physical Exam 2 Vital Signs (Past 24 Hours): Last Vital Signs Temp 37.0 C 05/24/18 14:56 Pulse 88 05/24/18 14:56 Resp 22 05/24/18 14:56 BP 142/93 H 05/24/18 14:56 Pulse Ox 96 05/24/18 14:56 Constitutional: well developed and well nourished sittign in chair on RA Eyes: EOM intact bilaterally ENMT: Ears: no external ear abnormality Nose: no external nose abnormality Mouth: + dry oral mucous membranes Neck: no nuchal rigidity Respiratory: normal respiratory effort Auscultation: + diminished lung sounds Cardiovascular: Rate/Rhythm: regular rate and regular rhythm Extremities: + edema (at most trace BLE) Gastrointestinal (Abdomen): Inspection/Auscultation: normal bowel sounds Percussion/Palpation: abdomen soft; abdomen nontender Musculoskeletal: Extremities: strength 5/5 throughout Skin: no rashes, warm and dry Neurologic: mathew, fluent speech Psychiatric: A+Ox3, euthymic affect Genitourinary: no cuadra Results & Data Laboratory Results Abnormal lab results 05/23/18 05/23/18 05/23/18 Range/Units 20:30 21:15 21:15 PT (9.0-12.0) Seconds INR (0.9-1.1) APTT (21.0-31.0) Seconds BUN (7-18) mg/dl Creatinine (0.6-1.4) mg/dl Glucose (70-99) mg/dl POC Glucose 355 H* 308 H 308 H (70-99) 05/24/18 05/24/18 05/24/18 Range/Units 01:11 05:27 05:27 PT 15.4 H (9.0-12.0) Seconds INR 1.6 H (0.9-1.1) APTT 49.4 H* (21.0-31.0) Seconds BUN 46 H (7-18) mg/dl Creatinine 3.15 H (0.6-1.4) mg/dl Glucose 53 L* (70-99) mg/dl POC Glucose 131 H (70-99) 05/24/18 05/24/18 05/24/18 Range/Units 06:47 06:49 07:43 PT (9.0-12.0) Seconds INR (0.9-1.1) APTT (21.0-31.0) Seconds BUN (7-18) mg/dl Creatinine (0.6-1.4) mg/dl Glucose (70-99) mg/dl POC Glucose 66 L* 65 L* 121 H (70-99) 05/24/18 05/24/18 Range/Units 11:35 16:12 PT (9.0-12.0) Seconds INR (0.9-1.1) APTT (21.0-31.0) Seconds BUN (7-18) mg/dl Creatinine (0.6-1.4) mg/dl Glucose (70-99) mg/dl POC Glucose 153 H 196 H (70-99)
--- NOTE | 2018-05-24 20:14 | Hospitalist Progress Note ---
Date of Service May 24, 2018 Assessment & Plan (1) Dizziness: Complained of lightheadedness in clinic and found to be hypotensive with sys BP of 70. Since admission, noted to have orthostatic hypotension with systolic BP's dropping 30-40 mm from supine to standing. Orthostatic hypotension ossibly secondary to combination of volume depletion + autonomic neuropathy. Diuretics being held. (2) Chronic systolic (congestive) heart failure: Nonischemic cardiomyopathy with chronic left ventricular systolic heart failure. Cardiology consulted. Diuretics on hold. Remains compensated. (3) CAD (coronary artery disease): History nonobstructive coronary disease. No anginal symptoms. (4) PAF (paroxysmal atrial fibrillation): Currently in paced rhythm. INR low. Adjust warfarin. Continue IV heparin. (5) Hypertension: Follow and titrate meds. (6) CKD (chronic kidney disease) stage 4, GFR 15-29 ml/min: CKD IV. Creatinine at time of admission 3.17. Baseline creatinine seems to run in mid-high 2's. Nephrology consulted. Diuretics being held. Creatinine today 3.15. Follow. (7) DM type 2 (diabetes mellitus, type 2): Not-well controlled. Hgb A1C was 9.4 on 05/15. Blood sugars fluctuating during this hospital stay with values > 400 yesterday after eating pancakes. Utilized insulin infusion to achieve glycemic control, then transitioned back to SQ Lantus + NovoLog. FBS today = 121. Follow and titrate Rx. (8) DVT prophylaxis: IV heparin / titrate warfarin. (9) Discharge planning issues: Anticipated discharge to home. Family Medicine follow-up with Dr. Butts. Subjective Recheck for multiple problems. Pt seen in his room around 1920. Feeling better. Blood sugars under better control. No lightheadedness. Ambulating. No fever. No chest pain. No cough or SOB. No nausea or vomiting. No diarrhea. No urinary symptoms. Physical Exam 2 Vital Signs (Past 24 Hours): Last Vital Signs Temp 37.0 C 05/24/18 14:56 Pulse 62 05/24/18 17:50 Resp 22 05/24/18 14:56 BP 153/86 H 05/24/18 17:50 Pulse Ox 96 05/24/18 14:56 Constitutional: WD/WN, vitals as above Respiratory: normal respiratory effort, lungs clear to auscultation Cardiovascular: Rate/Rhythm: regular rate and regular rhythm Heart Sounds: + murmur (II/ systolic murmur at base); no gallop Vessels: no JVD Extremities: + edema (trace pretibial) Gastrointestinal (Abdomen): Inspection/Auscultation: normal bowel sounds Percussion/Palpation: abdomen soft; abdomen nontender Musculoskeletal: Extremities: no cyanosis Psychiatric: A+Ox3, euthymic affect Results & Data Laboratory Results Laboratory Results - last 24 hr 05/24/18 05/24/18 05/24/18 05:27 05:27 06:47 PT 15.4 H INR 1.6 H APTT 49.4 H* PTT Ratio 1.9 Sodium 141 Potassium 4.3 Chloride 107 Carbon Dioxide 26 Anion Gap 8.0 BUN 46 H Creatinine 3.15 H Est Cr Clr Drug Dosing 28.1 Est GFR ( Amer) 22.9 Est GFR (Non-Af Amer) 19.8 BUN/Creatinine Ratio 14.7 Glucose 53 L* POC Glucose 66 L* Calcium 9.0 05/24/18 05/24/18 05/24/18 06:49 07:09 07:43 PT INR APTT PTT Ratio Sodium Potassium Chloride Carbon Dioxide Anion Gap BUN Creatinine Est Cr Clr Drug Dosing Est GFR ( Amer) Est GFR (Non-Af Amer) BUN/Creatinine Ratio Glucose POC Glucose 65 L* 84 121 H Calcium 05/24/18 05/24/18 05/24/18 11:35 16:12 21:12 PT INR APTT PTT Ratio Sodium Potassium Chloride Carbon Dioxide Anion Gap BUN Creatinine Est Cr Clr Drug Dosing Est GFR ( Amer) Est GFR (Non-Af Amer) BUN/Creatinine Ratio Glucose POC Glucose 153 H 196 H 198 H Calcium _ (1) Hypertension Hypertension type: essential hypertension Qualified Code(s): I10 - Essential (primary) hypertension (2) DM type 2 (diabetes mellitus, type 2) 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
[2018-05-24] MEDS: ROSUVASTATIN CALCIUM 20 MG TAB PO SCH (21:14)
[2018-05-24] MEDS: INSULIN GLARGINE SOLOSTAR 100 UNITS/ML 3 ML PEN SC SCH (21:15)
[2018-05-25 04:30] LABS: BUN Creatinine Ratio 13.9 (10-20); Calcium 8.6 mg/dl (8.5-10.1); Creatinine Clr Calc Pharmacy 29.5 ml/min; Est GFR (Non-African American) 20.7; Potassium 4.4 mmol/L (3.5-5.1)
[2018-05-25 04:35] LABS: INR 1.5 (0.9-1.1); Partial Thromboplastin Ratio 1.7; Prothrombin Time 14.4 Seconds (9.0-12.0)
[2018-05-25 04:40] LABS: Partial Thromboplastin Time 45.4 Seconds (21.0-31.0)
[2018-05-25] MEDS: ISOSORBIDE DINITRATE 10 MG TAB PO SCH ×2 (06:37→13:11)
[2018-05-25] MEDS ORDERED: HEPARIN IV BOLUS 3,000 UNITS in SYRINGE 0 ML IV ONE (08:00)
[2018-05-25] MEDS: PANTOprazole 40 MG TAB PO SCH (08:40)
[2018-05-25] MEDS: GABAPENTIN 100 MG CAP PO SCH ×2 (08:40→13:13)
[2018-05-25] MEDS: METOPROLOL SUCC 50MG EXT REL TAB PO SCH (08:40)
[2018-05-25] MEDS: CHOLECALCIFEROL 1,000 UNITS TAB PO SCH (08:41)
[2018-05-25] MEDS: ASPIRIN 81 MG ECTAB PO SCH (08:41)
[2018-05-25] MEDS: INSULIN ASPART 100 UNITS/ML 3 ML PEN SC SCH ×2 (08:43→13:12)
[2018-05-25] MEDS: HEPARIN LOW DOSE DEXTROSE 25,000 UNITS/500 ML IV SCH (10:19)
[2018-05-25 14:22] LABS: Partial Thromboplastin Ratio 2.3
[2018-05-25 14:30] LABS: Partial Thromboplastin Time 60.1 Seconds (21.0-31.0)
--- NOTE | 2018-05-25 16:26 | Hospitalist Progress Note ---
Date of Service May 25, 2018 Assessment & Plan (1) Dizziness: Complained of lightheadedness in clinic and found to be hypotensive with sys BP of 70. Since admission, noted to have orthostatic hypotension with systolic BP's dropping 30-40 mm from supine to standing. Orthostatic hypotension possibly secondary to combination of volume depletion + autonomic neuropathy. Diuretics held. No significant arrhythmias on telemetry. Symptoms improved. (2) Chronic systolic (congestive) heart failure: Nonischemic cardiomyopathy with chronic left ventricular systolic heart failure. Cardiology consulted. Diuretics held. CHF compensated. Discharge on modified diuretic regimen of torsemide 10 mg twice a week on Mondays and + additional dosing on other days for weight gain or edema. (3) CAD (coronary artery disease): History nonobstructive coronary disease. No anginal symptoms. (4) PAF (paroxysmal atrial fibrillation): Currently in paced rhythm. INR low. Received IV heparin. Titrate warfarin. (5) Hypertension: Follow and titrate meds. (6) CKD (chronic kidney disease) stage 4, GFR 15-29 ml/min: CKD IV. Creatinine at time of admission 3.17. Baseline creatinine seems to run in mid-high 2's. Nephrology consulted. Diuretics being held. Creatinine day of discharge 3.03. Follow. (7) DM type 2 (diabetes mellitus, type 2): Not-well controlled. Hgb A1C was 9.4 on 05/15. Blood sugars fluctuating during this hospital stay with values > 400 yesterday after eating pancakes. Utilized insulin infusion to achieve glycemic control, then transitioned back to SQ Lantus + NovoLog. FBS today = 160. Discharge on usual regimen. Ongoing outpatient education / support. (8) DVT prophylaxis: IV heparin / titrate warfarin. (9) Discharge planning issues: Discharge to home. Family Medicine follow-up with Dr. Butts. Subjective Recheck for multiple problems. Pt seen in his room. visiting. Doing well. No further lightheadedness. Ambulating. No fever. No chest pain. No cough or SOB. No nausea or vomiting. No diarrhea. Physical Exam 2 Vital Signs (Past 24 Hours): Last Vital Signs Temp 36.6 C 05/25/18 15:32 Pulse 58 L 05/25/18 15:32 Resp 20 05/25/18 15:32 BP 146/89 H 05/25/18 15:32 Pulse Ox 94 05/25/18 15:32 Constitutional: WD/WN, vitals as above Respiratory: normal respiratory effort, lungs clear to auscultation Cardiovascular: Rate/Rhythm: regular rate and regular rhythm Heart Sounds: + murmur (II/ systolic murmur at base); no gallop Vessels: no JVD Extremities: + edema (trace pretibial) Gastrointestinal (Abdomen): Inspection/Auscultation: normal bowel sounds Percussion/Palpation: abdomen soft; abdomen nontender Musculoskeletal: Extremities: no cyanosis Psychiatric: A+Ox3, euthymic affect _ (1) DM type 2 (diabetes mellitus, type 2) Chronic kidney disease stage: Diabetes mellitus complication detail: with unspecified neuropathy Diabetes mellitus complication status: with neurologic complications 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
[2018-05-25] MEDS: WARFARIN SOD 5 MG TAB PO SCH (16:32)
--- NOTE | 2018-05-28 04:58 | Discharge Summary ---
Date of Service May 28, 2018 Admission HPI Per Admitting Provider This is a 63 year old M with PMH non-ischemic cardiomyopathy with chronic systolic CHF (EF 45-50% in Feb 04), s/p pacemaker, atrial fibrillation (on coumadin), DM II, CAD without obstruction (on cardiac cath 06/2016), moderate aortic stenosis, HTN, HLD, CKD IV, chronic anemia, chronic thrombocytopenia and GERD who presents from cardiology clinic with continued dizziness and hypotension. Had presented for pacemaker interrogation and was complaining of dizziness and intermittent shortness of breath. Vitals were checked and SBP was 70 and then 90 on recheck. Had taken morning doses of hydralazine 25mg, Isordil 10mg and Toprol 100mg prior to appointment. Was directed from cardiology clinic to the ED for further evaluation. Patient has been admitted multiple times since January 2018 for similar symptoms of intermittent shortness of breath and dizziness. Describes dizziness as a lightheaded feeling with blurred vision and occasional room spinning. Occurs when patient sits up or is exerting himself physically, like walking to the restroom. Denies feeling of dizziness with repositioning while lying down. Has tried meclizine in the past without alleviation. During most recent hospitalization (with discharge on 05/17/18), patient was evaluated by both cardiology and pulmonology for symptoms. Cardiology service decreased the frequency of Torsemide 10mg on Thursday, Thursday, Thursday. Pulmonology felt that dyspnea was secondary to cardiac vs muscular fatigue. May also be a component of prolonged effect of post viral syndrome neuromuscular weakness from influenza last year. No evidence of obstructive lung disease on PFTs, so bronchodilators were discontinued. Patient received 500cc of NSS in ED prior to my exam but was still experiencing lightheadedness and blurred vision with movement. Vital signs stable. Creatinine elevated from baseline of 2.85 to 3.17. INR is 1.8. Has been wearing 2L NC O2 at night for noctural hypoxemia. Awaiting out-patient sleep study. ICD interrogation performed earlier today demonstrates normal function. states that patient is very sedentary at baseline and becomes symptomatic with any type of movement. Admission Exam Per Admitting Provider General Appearance: WD/WN, no apparent distress Head: normocephalic, atraumatic Eyes: No nystagmus but becomes lightheaded when looking up. PERRL, EOMI ENT: hard of hearing, pharynx normal (moist mucous membranes) Neck: supple, no JVD, no adenopathy Respiratory/Chest: lungs clear to auscultation. No wheezes, rales or rhonci. No respiratory distress or accessory muscle use Cardiovascular: regular rate, rhythm, systolic murmur, normal peripheral pulses Abdomen/GI: normal bowel sounds, soft, non-tender to palpation Extremities/Musculoskelatal: normal inspection, no calf tenderness, normal capillary refill, no pedal edema Neurologic/Psych: alert, normal mood/affect, oriented x 3 Skin: normal color, warm/dry Principal Diagnosis orthostatic hypotension nonischemic cardiomyopathy CKD IV DM type 2 with hyperglycemia Discharge Data Allergies Allergy/AdvReac Type Severity Reaction Status Date / Time No Known Allergies Allergy Verified 05/20/18 10:41 Consultations 05/20/18 11:49 ED Decision to Admit Stat 05/20/18 14:07 Consult Cardiology Routine Consult Nephrology Routine Consult Neurology Routine Ordered Studies 05/20/18 16:16 CT IAC BI wo con Routine 05/20/18 17:31 CT head/brain wo con Routine Hospital Course (1) Dizziness: Complained of lightheadedness in clinic and found to be hypotensive with sys BP of 70. Since admission, noted to have orthostatic hypotension with systolic BP's dropping 30-40 mm from supine to standing. Orthostatic hypotension possibly secondary to combination of volume depletion + autonomic neuropathy. Diuretics held. No significant arrhythmias on telemetry. Symptoms improved. (2) Chronic systolic (congestive) heart failure: Nonischemic cardiomyopathy with chronic left ventricular systolic heart failure. Cardiology consulted. Diuretics held. CHF compensated. Discharge on modified diuretic regimen of torsemide 10 mg twice a week on Mondays and + additional dosing on other days for weight gain or edema. (3) CAD (coronary artery disease): History nonobstructive coronary disease. No anginal symptoms. (4) PAF (paroxysmal atrial fibrillation): Currently in paced rhythm. INR low. Received IV heparin. Titrate warfarin. (5) Hypertension: Follow and titrate meds. (6) CKD (chronic kidney disease) stage 4, GFR 15-29 ml/min: CKD IV. Creatinine at time of admission 3.17. Baseline creatinine seems to run in mid-high 2's. Nephrology consulted. Diuretics being held. Creatinine day of discharge 3.03. Follow. (7) DM type 2 (diabetes mellitus, type 2): Not-well controlled. Hgb A1C was 9.4 on 05/15. Blood sugars fluctuating during this hospital stay with values > 400 yesterday after eating pancakes. Utilized insulin infusion to achieve glycemic control, then transitioned back to SQ Lantus + NovoLog. FBS today = 160. Discharge on usual regimen. Ongoing outpatient education / support. (8) DVT prophylaxis: IV heparin / titrate warfarin. (9) Discharge planning issues: Discharge to home. Family Medicine follow-up with Dr. Butts. Total Time Total Time Spent Total Time Spent (In Minutes): 45 Discharge Plan Discharge Items Patient Disposition: Home - Self-Care Reason For Visit: low blood pressure Discharge Diagnosis: low blood pressure, especially when standing Condition: Good Discharge Goals: Improve disease control and Improve function Activity: As commented below Activity Comment: enjoy doing stuff, just don't push yourself too hard Non-emergency contact: Primary Care Provider, Hospitalist, Radioactivity Technician and Drafter Geophysical Call non-emergency contact if: you have any medication questions and your symptoms worsen Follow-up/Referrals: Kathleen Bosch MD, PhD [Physician] - (07/19/2018 2:10 PM Kathleen Bosch MD) Pillo Graves MD [Physician] - (07/08/2018 11:30 AM Pillo Graves MD) Diet: Carb Consistent or DM2 and Heart Healthy Addtl Provider Instructions: APPOINTMENTS: FAMILY MEDICINE 06/01/2018 9:00 AM Mirlande Pickett MD OTHER INSTRUCTIONS: Weight yourself every morning before breakfast and keep a diary. Take torsemide twice a week on Mondays and . Take dose on other days if weight is 3 lbs or more above ideal weight or if you have bad swelling of legs or feet. Seek medical attention if you have: * temperature above 101 * chest pain or trouble breathing * abdominal pain, nausea, vomiting * diarrhea, dark stools or bloody stools * any unanswered questions or concerns Call 911 if symptoms are severe. Call if you have any questions or problems. My cell # is [phone]. You can also reach a [facility] hospitalist on duty at [facility] 24 hours a day by calling [phone]. Prescriptions: Continue isosorbide dinitrate 10 mg Tablet 20 mg PO TID RF: 0 metoprolol succinate [Toprol XL] 100 mg Tablet Extended Release 24 Hr 100 mg PO DAILY RF: 0 aspirin 81 mg Tablet,Delayed Release (Dr/Ec) 81 mg PO DAILY RF: 0 pantoprazole [Protonix] 40 mg Tablet,Delayed Release (Dr/Ec) 40 mg PO DAILY RF: 0 insulin lispro [Humalog KwikPen Insulin] 100 unit/mL Insulin Pen 7 units SUBCUT QAM RF: 0 insulin lispro [Humalog KwikPen Insulin] 100 unit/mL Insulin Pen 14 unit SUBCUT BID RF: 0 rosuvastatin [Crestor] 40 mg Tablet 40 mg PO HS RF: 0 insulin glargine [Lantus Solostar U-100 Insulin] 100 unit/mL (3 mL) Insulin Pen 52 units SUBCUT HS RF: 0 cholecalciferol (vitamin D3) [Vitamin D3] 2,000 unit Capsule 2,000 unit PO DAILY RF: 0 hydralazine 25 mg tablet 25 mg PO TID RF: 0 gabapentin 100 mg Capsule 100 mg PO TID RF: 0 Changed torsemide 20 mg tablet See Label Instructions .ROUTE .COMPLEX Qty: 0 RF: 0 warfarin 5 mg Tablet See Label Instructions .ROUTE .COMPLEX Qty: 0 RF: 0 Discontinued warfarin [Coumadin] 5 mg Tablet 2.5 mg PO THOMAS@1600 RF: 0 Stand-Alone Forms: [facility] Discharge Orders: Discharge Order (Routine); Ordered 05/25/18 Ordered By: Arpan Guzman Admission Data Admit Date/Time: 05/23/18 17:37 Attending Provider: Arpan Guzman Admit Provider: Yovanny Desai Primary Care Provider: Mabel Butts Other Providers: Yovanny Desai ; Nirav Wild ; Kathleen Bosch ; Arpan Lara Service: Telemetry Medical Other Interventions: Discharge Summary Assessment (RN) Last Done: 05/25/18 16:50 DC Date/Time DO NOT enter until pt leaves facility: 05/25/18 17:08
== END 2018-05-25 17:08 | disposition home or self-care (01) | DRG 74 ==
LOC: 4W 10:10 → ED 10:10 → 4W 13:53 → 2N 05-23 19:57
DX: D69.6 Thrombocytopenia, unspecified; E11.21 Type 2 diabetes mellitus with diabetic nephropathy; Z79.4 Long term (current) use of insulin; Z79.82 Long term (current) use of aspirin; E11.43 Type 2 diabetes mellitus with diabetic autonomic (poly)neuropathy; Z79.01 Long term (current) use of anticoagulants; I44.7 Left bundle-branch block, unspecified; E78.5 Hyperlipidemia, unspecified; I95.1 Orthostatic hypotension; K21.9 Gastro-esophageal reflux disease without esophagitis; E11.65 Type 2 diabetes mellitus with hyperglycemia; I12.9 Hypertensive chronic kidney disease with stage 1 through stage 4 chronic kidney disease, or unspecified chronic kidney disease; Z83.3 Family history of diabetes mellitus; I35.0 Nonrheumatic aortic (valve) stenosis; Z95.0 Presence of cardiac pacemaker; Z95.810 Presence of automatic (implantable) cardiac defibrillator; N17.9 Acute kidney failure, unspecified; I50.22 Chronic systolic (congestive) heart failure; N18.4 Chronic kidney disease, stage 4 (severe); I25.10 Atherosclerotic heart disease of native coronary artery without angina pectoris; E86.9 Volume depletion, unspecified; I42.9 Cardiomyopathy, unspecified; I48.2 Chronic atrial fibrillation; Z82.49 Family history of ischemic heart disease and other diseases of the circulatory system

== ENCOUNTER 2018-08-01 19:04 | Inpatient (IN) ==
[2018-08-01 19:41] LABS: Basophils # (auto) 0.02 K/uL (0-0.2); Basophils % (auto) 0.4 %; Eosinophils # (auto) 0.09 K/uL (0-0.5); Eosinophils % (auto) 1.7 %; Hemoglobin 9.8 g/dL (14.0-18.0); Immature Granulocytes # (auto) 0.01 K/uL (0.00-0.02); Immature Granulocytes % (auto) 0.2 %; Lymphocytes # (auto) 0.52 K/uL (1.2-3.4); Mean Corpuscular Hgb Conc 31.6 g/dL (32-36); Mean Corpuscular Volume 82.4 fL (80-100); Mean Platelet Volume 9.3 fL (7.4-10.4); Monocytes # (auto) 0.55 K/uL (0.11-0.59); Monocytes % (auto) 10.5 %; Neutrophils # (auto) 4.03 K/uL (1.4-6.5); Neutrophils % (auto) 77.2 %; Platelet Count 129 K/uL (130-400); RDW Coefficient of Variation 14.8 % (11.5-14.5); RDW Standard Deviation 44.2 fL (36.4-46.3); Red Blood Count 3.76 M/uL (4.7-6.1); White Blood Count 5.22 K/uL (4.8-10.8)
--- NOTE | 2018-08-01 19:44 | XRay Report ---
XR chest 1V portable CLINICAL HISTORY: Dyspnea dyspnea COMPARISON STUDY: 05/20/2018 FINDINGS: Moderate stable cardia megaly. Lungs are clear. There is an implantable cardiac pacemaker. Leads in good position. IMPRESSION: Moderate cardiomegaly. The lungs are clear. The above report was generated using voice recognition software. It may contain grammatical, syntax or spelling errors. Electronically signed by: Billy Phillips M.D. 08/01/2018 7:43 PM
[2018-08-01 19:59] LABS: Albumin Level 3.3 gm/dl (3.4-5.0); BUN Creatinine Ratio 17.7 (10-20); Calcium 9.6 mg/dl (8.5-10.1); Creatinine Clr Calc Pharmacy 32.1 ml/min; Est GFR (African American) 25.5; Magnesium 2.1 mg/dl (1.8-2.4); Potassium 4.1 mmol/L (3.5-5.1)
[2018-08-01 20:01] LABS: INR 1.5 (0.9-1.1); Partial Thromboplastin Time 27.9 Seconds (21.0-31.0); Prothrombin Time 14.7 Seconds (9.0-12.0)
[2018-08-01 20:04] LABS: Albumin Globulin Ratio 0.9 (0.9-2); Bilirubin,Total 0.7 mg/dl (0.2-1); Globulin 3.5 gm/dl (2.5-4.0); Total Protein 6.8 gm/dl (6.4-8.2); Troponin I 0.044 ng/ml (0-0.045)
[2018-08-01 20:26] LABS: Influenza A virus by PCR Neg for Influ A (Neg); Influenza B virus by PCR Neg for Influ B (Neg)
[2018-08-01 20:38] LABS: Appearance Urine Clear (Clear); Bacteria Urine Automated Negative (Negative); Bilirubin Urine Negative (Negative); Blood Urine Negative (Negative); Color Urine Yellow; Glucose Urine UA 2+ (Negative); Ketones Urine Negative (Negative); Leukocyte Esterase Urine Negative (Negative); Nitrite Urine Negative (Negative); Protein Urine 2+ (Negative); RBC Urine Automated 0-4 /hpf (0-4); Specific Gravity Urine 1.018 (1.000-1.030); Urobilinogen Urine Negative (Negative); WBC Urine Automated 0 /hpf (0-5)
[2018-08-01] MEDS ORDERED: FUROSEMIDE 40 MG/4 ML VIAL IV STA (21:09)
--- NOTE | 2018-08-01 22:36 | History & Physical Report ---
Date of Service August 01, 2018 Assessment & Plan (1) CHF (congestive heart failure): Predominantly right side heart failure symptoms hx COPD/ARPIT/pulmonary hypertension as per records; patient awaiting scheduled for sleep study. 20 pound weight gain from baseline weight from recent confinement April 2018. chronic systolic/diastolic heart failure secondary to nonischemic cardiomyopathy, EF of 45-50%, TTE 03/2018) status post ICD chronic LBBB History nonocclusive CAD Hypertension, elevated A. fib on Coumadin, paced rhythm, INR subtherapeutic Moderate aortic stenosis on recent TTE CRI, creatinine at baseline acute on chronic anemia Hemoglobin drop from baseline Possibly dilutional from fluid retention DM 2 insulin requiring, suboptimal control as of recent outpatient hemoglobin A1c of 9.2 last June 2018 Abdominal distention secondary to fluid retention rule out ascites Bilateral leg swelling secondary to fluid retention rule out DVT given subtherapeutic INR Medical telemetry Diuretic regimen Strict I/Os, daily weights, CHF education Fluid restriction Cardiology and Nephrology consultations RE right-sided CHF, fluid retention, CKD Abdominal ultrasound RE abdominal distention rule out ascites LE venous Dopplers rule out DVT Anemia workup Basal insulin, ISS BG goal 140-180, carb count coverage DVT prophylaxis. Coumadin INR between 2 and 3 Full code History of Present Illness Chief Complaint: Shortness of breath, fluid retention Primary Care Provider: Mirlande Pickett MD History obtained from patient and records. Medical history significant for chronic systolic/diastolic heart failure secondary to nonischemic cardiomyopathy (EF of 45-50%, TTE 03/2018) status post ICD, chronic LBBB, History nonocclusive CAD, A. fib on Coumadin, aortic stenosis, hypertension, COPD as per records, ARPIT, DM 2 insulin requiring, chronic renal insufficiency (baseline creatinine of 2.6-3), chronic anemia (baseline hemoglobin of 11-12), chronic thrombocytopenia Recent confinement last April 2018 for dizziness secondary to orthostatic hypotension. Patient noted worsening shortness of breath the last 2 days. Gradually increasing, feels like he is filling up with fluid. Home weight steadily going up despite compliance with diuretic regimen and fluid restriction at home. Denies NSAID intake. Legs and feet swelling up. Left-sided chest pain which patient attributes to abdominal distention not being able to take a deep breath. No cough symptoms. Patient received IV Lasix at the ER. Allergies Allergy/AdvReac Type Severity Reaction Status Date / Time No Known Allergies Allergy Verified 08/01/18 20:51 Home Medications Home Medications Medication Instructions Recorded Confirmed Type Lantus Solostar U-100 Insulin 52 units SUBCUT HS 02/05/18 08/01/18 History aspirin 81 mg PO DAILY 02/05/18 08/01/18 History cholecalciferol (vitamin D3) 2,000 unit PO DAILY 02/05/18 08/01/18 History [Vitamin D3] insulin lispro [Humalog KwikPen 7 units SUBCUT QAM 02/05/18 08/01/18 History Insulin] insulin lispro [Humalog KwikPen 14 unit SUBCUT BID 02/05/18 08/01/18 History Insulin] isosorbide dinitrate 20 mg PO TID 02/05/18 08/01/18 History metoprolol succinate [Toprol XL] 100 mg PO DAILY 02/05/18 08/01/18 History pantoprazole [Protonix] 40 mg PO DAILY 02/05/18 08/01/18 History rosuvastatin [Crestor] 40 mg PO HS 02/05/18 08/01/18 History gabapentin 100 mg PO TID 05/14/18 08/01/18 History hydralazine 25 mg PO TID 05/20/18 08/01/18 History torsemide See Rx Instructions .ROUTE 05/25/18 08/01/18 Rx .COMPLEX #0 tab albuterol sulfate [ProAir HFA] 2 puff INHALATION Q4 PRN 08/01/18 08/01/18 History fluticasone furoate-vilanterol 1 inh INHALATION DAILY 08/01/18 08/01/18 History [Breo Ellipta] fluticasone propionate [Flonase 2 spray INTRANASAL DAILY PRN 08/01/18 08/01/18 History Allergy Relief] ipratropium-albuterol 3 ml INHALATION QID 08/01/18 08/01/18 History warfarin 5 mg PO DAILY 08/01/18 08/01/18 History Past Med/Surg History Medical History Diabetic neuropathy (Chronic) Chronic systolic (congestive) heart failure (Chronic) Aortic stenosis (Chronic) Nocturnal hypoxia (Chronic) on 2L NC O2 HS GERD (gastroesophageal reflux disease) (Chronic) Thrombocytopenia (Chronic) Chronic anemia (Chronic) Asthma (Chronic) DM type 2 (diabetes mellitus, type 2) (Chronic) Dyslipidemia (Chronic) Hypertension (Chronic) CAD (coronary artery disease) (Chronic) "nonobstructive" Nonischemic cardiomyopathy (Chronic) "EF 40-45% with mod on 02/04" LBBB (left bundle branch block) (Chronic) Atrial fibrillation (Chronic) on chronic anticoagulation Surgical History H/O cardiac catheterization (Chronic) Non nonobstructive CAD on 2016 cardiac cath Presence of combination internal cardiac defibrillator (ICD) and pacemaker (Chronic) Social History Preferred Language: Indonesian Communication Ability: Effective Business Applications Developer Required: No Beliefs That Will Affect Care: None marital status: Current Living Situation: Spouse current occupational status: retired 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 Feels Safe at Home: Yes Safety Concerns: Feels Safe At This Time Smoking Status: Never smoker Hx Alcohol Use: No Hx Substance Use: No Review of Systems As per HPI, all 10 systems reviewed, all other ROS negative Physical Exam Vital Signs (Past 24 Hours): Last Vital Signs Temp 36.8 C 08/01/18 19:08 Pulse 61 08/01/18 22:00 Resp 20 08/01/18 22:00 BP 175/85 H 08/01/18 22:00 Pulse Ox 98 08/01/18 22:00 Physical Exam: GENERAL: obese, uncomfortable, no respiratory distress SKIN: pallor, warm HEENT: Pale palpebral conjunctivae, no ptosis, dry buccal mucosa NECK : Supple, short neck, no tenderness CHEST : Decreased breath sounds , no tenderness HEART : RRR, systolic ABDOMEN: distention, nontender RECTAL EXAM : intact sphincter, yellow stool, FOBT negative EXTREMITIES : artur LE swelling, no LE tenderness, no other conspicuous deformities noted NEUROLOGIC : Coherent, no facial asymmetry, no other gross focality Results & Data Laboratory Results Laboratory Results WBC 5.22 K/uL (4.8-10.8) 08/01/18 19:27 RBC 3.76 M/uL (4.7-6.1) L 08/01/18 19:27 Hgb 9.8 g/dL (14.0-18.0) L 08/01/18 19:27 Hct 31.0 % (42-52) L 08/01/18 19:27 MCV 82.4 fL (80-100) 08/01/18 MCH 26.1 pg (25-34) 08/01/18 MCHC 31.6 g/dL (32-36) L 08/01/18 RDW Std Deviation 44.2 fL (36.4-46.3) 08/01/18 RDW Coeff of Joey 14.8 % (11.5-14.5) H 08/01/18 Plt Count 129 K/uL (130-400) L 08/01/18 MPV 9.3 fL (7.4-10.4) 08/01/18 Immature Gran % (Auto) 0.2 % 08/01/18 Neut % (Auto) 77.2 % 08/01/18 Lymph % (Auto) 10.0 % 08/01/18 Logan % (Auto) 10.5 % 08/01/18 Eos % (Auto) 1.7 % 08/01/18 Baso % (Auto) 0.4 % 08/01/18 Immature Gran # (Auto) 0.01 K/uL (0.00-0.02) 08/01/18 Neut # (Auto) 4.03 K/uL (1.4-6.5) 08/01/18 Lymph # (Auto) 0.52 K/uL (1.2-3.4) L 08/01/18 Logan # (Auto) 0.55 K/uL (0.11-0.59) 08/01/18 Eos # (Auto) 0.09 K/uL (0-0.5) 08/01/18 Baso # (Auto) 0.02 K/uL (0-0.2) 08/01/18 PT 14.7 Seconds (9.0-12.0) H 08/01/18 INR 1.5 (0.9-1.1) H 08/01/18 APTT 27.9 Seconds (21.0-31.0) 08/01/18 PTT Ratio 1.0 08/01/18 Sodium 139 mmol/L (136-145) 08/01/18 19:27 Potassium 4.1 mmol/L (3.5-5.1) 08/01/18 19:27 Chloride 103 mmol/L (98-107) 08/01/18 19:27 Carbon Dioxide 28 mmol/L (21-32) 08/01/18 19:27 Anion Gap 9.0 (3-11) 08/01/18 19:27 BUN 51 mg/dl (7-18) H 08/01/18 19:27 Creatinine 2.88 mg/dl (0.6-1.4) H 08/01/18 19:27 Est Cr Clr Drug Dosing 32.1 ml/min 08/01/18 19:27 Est GFR ( Amer) 25.5 08/01/18 19:27 Est GFR (Non-Af Amer) 22.0 08/01/18 19:27 BUN/Creatinine Ratio 17.7 (10-20) 08/01/18 19:27 Glucose 254 mg/dl (70-99) H 08/01/18 19:27 Calcium 9.6 mg/dl (8.5-10.1) 08/01/18 19:27 Magnesium 2.1 mg/dl (1.8-2.4) 08/01/18 19:27 Total Bilirubin 0.7 mg/dl (0.2-1) 08/01/18 19:27 AST 25 U/L (15-37) 08/01/18 19:27 ALT 28 U/L (12-78) 08/01/18 19:27 Alkaline Phosphatase 95 U/L (45-117) 08/01/18 19:27 Troponin I 0.044 ng/ml (0-0.045) 08/01/18 19:27 NT-Pro-B Natriuret Pep 6710 pg/ml (0-900) H 08/01/18 19:27 Total Protein 6.8 gm/dl (6.4-8.2) 08/01/18 19:27 Albumin 3.3 gm/dl (3.4-5.0) L 08/01/18 19:27 Globulin 3.5 gm/dl (2.5-4.0) 08/01/18 19:27 Albumin/Globulin Ratio 0.9 (0.9-2) 08/01/18 19:27 Urine Color Yellow 08/01/18 20:00 Urine Appearance Clear (Clear) 08/01/18 20:00 Urine pH 5.0 (4.5-7.5) 08/01/18 20:00 Ur Specific [place] 1.018 (1.000-1.030) 08/01/18 20:00 Urine Protein 2+ (Negative) H 08/01/18 20:00 Urine Glucose (UA) 2+ (Negative) H 08/01/18 20:00 Urine Ketones Negative (Negative) 08/01/18 20:00 Urine Blood Negative (Negative) 08/01/18 20:00 Urine Nitrite Negative (Negative) 08/01/18 20:00 Urine Bilirubin Negative (Negative) 08/01/18 20:00 Urine Urobilinogen Negative (Negative) 08/01/18 20:00 Ur Leukocyte Esterase Negative (Negative) 08/01/18 20:00 Urine WBC (Auto) 0 /hpf (0-5) 08/01/18 20:00 Urine RBC (Auto) 0-4 /hpf (0-4) 08/01/18 20:00 U Hyaline Cast (Auto) 1-5 /lpf (0-5) 08/01/18 20:00 U Epithel Cells (Auto) 5-10 /lpf (0-5) H 08/01/18 20:00 Urine Bacteria (Auto) Negative (Negative) 08/01/18 20:00 Influenza Type A (PCR) Neg for Influ A (Neg) 08/01/18 19:45 Influenza Type B (PCR) Neg for Influ B (Neg) 08/01/18 19:45 Diagnostic Findings Chest x-ray showed cardiomegaly EKG as per my interpretation : Rate 75, paced rhythm
[2018-08-01] MEDS ORDERED: ACETAMINOPHEN 325 MG TAB PO PRN (23:30)
[2018-08-01] MEDS ORDERED: CARBOHYDRATES FOR HYPOGLYCEMIA PO PRN (23:30)
[2018-08-01] MEDS ORDERED: WARFARIN SOD 5 MG TAB PO ONE (23:30)
[2018-08-01] MEDS ORDERED: TRAMADOL HCL 50 MG TABLET PO PRN (23:30)
[2018-08-01] MEDS ORDERED: GLUCOSE 40% GEL 15 GM TUBE PO PRN (23:30)
[2018-08-01] MEDS ORDERED: GLUCOSE 10 TABS/TUBE PO PRN (23:30)
[2018-08-01] MEDS ORDERED: DEXTROSE 50% 50 ML SYRINGE IV PRN (23:30)
[2018-08-01] MEDS ORDERED: PROCHLORPERAZINE 5 MG in SYRINGE 4 ML IV PRN (23:30)
[2018-08-01] MEDS ORDERED: GLUCAGON FOR INJ 1 MG VIAL SQ PRN (23:30)
[2018-08-01] MEDS ORDERED: HYDROmorphone INJ 0.5 MG/0.5 ML SYR IV PRN (23:30)
[2018-08-01] MEDS ORDERED: ALBUMIN 25% 50 ML with FUROSEMIDE 40 MG IV ONE (23:45)
[2018-08-02] MEDS: INSULIN GLARGINE SOLOSTAR 100 UNITS/ML 3 ML PEN SQ SCH ×2 (00:11→08:33)
[2018-08-02] MEDS: INSULIN ASPART 100 UNITS/ML 3 ML PEN SC SCH ×6 (00:11→23:54)
--- NOTE | 2018-08-02 00:19 | Emergency Department Note ---
Entered by Lizbeth Snow acting as a scribe for History of Present Illness General Chief complaint: Respiratory Problems Stated complaint: TROUBLE BREATHING Source: patient History of Present Illness Onset (ago): day(s) (3-4) Location: lower extremity, left and right Radiation: abdomen Pain Consistency: + other (increased) Maximum Pain Intensity: 6 Quality: + other (swelling) Associated symptoms: + shortness of breath and + other (epigastric discomfort, nausea) The patient is a 63 year old male who presents to the Emergency Room with complaints of increased swelling for the last 3-4 days. The patient rates his discomfort a 6/10 in severity. He also complains of shortness or breath, epigastric discomfort, and nausea. He notes he has been taking 2 fluid pills recently. Home Medications Home Medications Medication Instructions Recorded Confirmed Type Lantus Solostar U-100 Insulin 52 units SUBCUT HS 02/05/18 08/01/18 History aspirin 81 mg PO DAILY 02/05/18 08/01/18 History cholecalciferol (vitamin D3) 2,000 unit PO DAILY 02/05/18 08/01/18 History [Vitamin D3] insulin lispro [Humalog KwikPen 7 units SUBCUT QAM 02/05/18 08/01/18 History Insulin] insulin lispro [Humalog KwikPen 14 unit SUBCUT BID 02/05/18 08/01/18 History Insulin] isosorbide dinitrate 20 mg PO TID 02/05/18 08/01/18 History metoprolol succinate [Toprol XL] 100 mg PO DAILY 02/05/18 08/01/18 History pantoprazole [Protonix] 40 mg PO DAILY 02/05/18 08/01/18 History rosuvastatin [Crestor] 40 mg PO HS 02/05/18 08/01/18 History gabapentin 100 mg PO TID 05/14/18 08/01/18 History hydralazine 25 mg PO TID 05/20/18 08/01/18 History torsemide See Rx Instructions .ROUTE 05/25/18 08/01/18 Rx .COMPLEX #0 tab albuterol sulfate [ProAir HFA] 2 puff INHALATION Q4 PRN 08/01/18 08/01/18 History fluticasone furoate-vilanterol 1 inh INHALATION DAILY 08/01/18 08/01/18 History [Breo Ellipta] fluticasone propionate [Flonase 2 spray INTRANASAL DAILY PRN 08/01/18 08/01/18 History Allergy Relief] ipratropium-albuterol 3 ml INHALATION QID 08/01/18 08/01/18 History warfarin 5 mg PO DAILY 08/01/18 08/01/18 History Allergies Allergy/AdvReac Type Severity Reaction Status Date / Time No Known Allergies Allergy Verified 08/01/18 20:51 Past Med/Surg History Medical History Diabetic neuropathy (Chronic) Chronic systolic (congestive) heart failure (Chronic) Aortic stenosis (Chronic) Nocturnal hypoxia (Chronic) on 2L NC O2 HS GERD (gastroesophageal reflux disease) (Chronic) Thrombocytopenia (Chronic) Chronic anemia (Chronic) Asthma (Chronic) DM type 2 (diabetes mellitus, type 2) (Chronic) Dyslipidemia (Chronic) Hypertension (Chronic) CAD (coronary artery disease) (Chronic) "nonobstructive" Nonischemic cardiomyopathy (Chronic) "EF 40-45% with mod on 02/04" LBBB (left bundle branch block) (Chronic) Atrial fibrillation (Chronic) on chronic anticoagulation Surgical History H/O cardiac catheterization (Chronic) Non nonobstructive CAD on 2016 cardiac cath Presence of combination internal cardiac defibrillator (ICD) and pacemaker (Chronic) Social History Preferred Language: Italian Communication Ability: Effective Activities Director Required: No Beliefs That Will Affect Care: None marital status: Current Living Situation: Spouse Feels Safe at Home: Yes Safety Concerns: Feels Safe At This Time Smoking Status: Never smoker Hx Alcohol Use: No Hx Substance Use: No Review of Systems See HPI for pertinent positives & negatives. and A total of 10 systems reviewed and were otherwise negative Physical Exam Vital Signs Vital Signs - 24 hr 08/01/18 19:08 08/01/18 19:15 08/01/18 19:43 Temperature 36.8 C Temperature Source Oral Sepsis Recent Fever Within 48 Hours No Sepsis New/Unexplained Change in Mental Status No Sepsis Action Taken by Nursing No Action Required Pulse Rate 67 Pulse Rate [Finger] Pulse Rhythm Regular Pulse Rhythm [Finger] Pulse Strength Normal Pulse Strength [Finger] Respiratory Rate 24 Respiratory Effort / Characteristics Non-Labored Spontaneous Respiratory Depth Normal Respiratory Pattern Regular Blood Pressure 138/73 Blood Pressure [Left Arm] Blood Pressure Mean 94 Blood Pressure Mean [Left Arm] Blood Pressure Position Sitting Blood Pressure Position [Left Arm] Pulse Oximetry 97 95 95 Oxygen Delivery Method Room Air Room Air Room Air 08/01/18 20:06 08/01/18 21:07 08/01/18 22:00 Temperature Temperature Source Sepsis Recent Fever Within 48 Hours Sepsis New/Unexplained Change in Mental Status Sepsis Action Taken by Nursing Pulse Rate Pulse Rate [Finger] 61 61 61 Pulse Rhythm Pulse Rhythm [Finger] Pulse Strength Pulse Strength [Finger] Respiratory Rate 22 20 20 Respiratory Effort / Characteristics Respiratory Depth Respiratory Pattern Blood Pressure Blood Pressure [Left Arm] 171/83 H 200/95 H 175/85 H Blood Pressure Mean Blood Pressure Mean [Left Arm] 112 130 115 Blood Pressure Position Blood Pressure Position [Left Arm] Pulse Oximetry 96 95 98 Oxygen Delivery Method Room Air Room Air Room Air 08/01/18 22:55 08/01/18 23:08 Temperature 37.1 C Temperature Source Oral Sepsis Recent Fever Within 48 Hours Sepsis New/Unexplained Change in Mental Status Sepsis Action Taken by Nursing Pulse Rate Pulse Rate [Finger] 66 66 Pulse Rhythm Pulse Rhythm [Finger] Regular Pulse Strength Pulse Strength [Finger] Normal Respiratory Rate 20 16 Respiratory Effort / Characteristics Non-Labored Spontaneous Respiratory Depth Normal Respiratory Pattern Regular Blood Pressure Blood Pressure [Left Arm] 168/90 H 158/81 H Blood Pressure Mean Blood Pressure Mean [Left Arm] 116 106 Blood Pressure Position Blood Pressure Position [Left Arm] Lying Pulse Oximetry 95 96 Oxygen Delivery Method Room Air Room Air GENERAL: Awake, alert, in no distress HENT: Normocephalic, atraumatic. EYES: Normal conjunctiva. Sclera non-icteric. NECK: Supple. No nuchal rigidity. RESPIRATORY: No wheezes. Mildly dyspneic. Diminished lung bases. CARDIAC: Normal rate. Normal rhythm. Extremities warm and well perfused. GI: Soft. Distended abdomen. No masses noted. RECTAL: Deferred. MUSCULOSKELETAL: Atraumatic. Chest examination reveals no tenderness. LOWER EXTREMITIES: Calves are equal size bilaterally and non-tender. 1+ lower extremity edema. NEURO: Normal sensorium. No sensory or motor deficits noted. No facial droop. SKIN: Warm and dry. No rash or jaundice noted. Course 1919: The patient was evaluated in room B11B, and a complete history and physical examination were performed. 2134: I reviewed the patient's case with Dr. Vazquez, [facility] Hospitalist. He will evaluate the patient for further management. Administered Medications Hydralazine HCl (Apresoline) 25 mg PO TID ALYSIA Stop: 08/31/18 21:39 Last Admin: 08/01/18 21:51 Dose: 25 mg Documented by: [id number] Furosemide 40 mg/ Albumin (Human) 54 mls @ 54 mls/hr IV ONE ONE Stop: 08/02/18 00:44 Last Admin: 08/02/18 00:14 Dose: 54 mls/hr Documented by: [id number] Insulin Aspart (Novolog Flexpen) 0 units SC ACHS ALYSIA Stop: 08/31/18 23:29 Last Admin: 08/02/18 00:11 Dose: 2 units Documented by: [id number] Cosigned by: [id number] Insulin Glargine (Lantus Solostar Pen) 30 units SQ BID ALYSIA Stop: 08/31/18 23:29 Last Admin: 08/02/18 00:11 Dose: 30 units Documented by: [id number] Cosigned by: [id number] Miscellaneous (Order Awaiting Action) 1 ea N/A QS ALYSIA Stop: 09/01/18 00:00 Last Admin: 08/02/18 00:04 Dose: Not Given Documented by: [id number] Discontinued Medications Furosemide (Lasix) 40 mg IV NOW STA Stop: 08/01/18 21:10 Last Admin: 08/01/18 21:20 Dose: 40 mg Documented by: [id number] Warfarin Sodium (Coumadin) 5 mg PO NOW ONE Stop: 08/01/18 23:31 Last Admin: 08/02/18 00:11 Dose: 5 mg Documented by: [id number] Medical Decision Making Differential Diagnosis Etiologies such as infections, reactive airway disease, pneumonia, pneumothorax, COPD, CHF, cardiac ischemia, pulmonary embolism, musculoskeletal, gastroi ntestinal, as well as others were entertained. Medical Records Attestation: I reviewed the patient's medical records. Home Medications Current Medication List: was personally reviewed by me Laboratory Data Attestation: I reviewed the patient's lab results. Result diagrams: 08/01/18 19:27 08/01/18 19:27 Lab Results 04/14/19 04/14/19 04/14/19 Range/Units 19:27 19:27 19:27 WBC 5.22 (4.8-10.8) K/uL RBC 3.76 L (4.7-6.1) M/uL Hgb 9.8 L (14.0-18.0) g/dL Hct 31.0 L (42-52) % MCV 82.4 (80-100) fL MCH 26.1 (25-34) pg MCHC 31.6 L (32-36) g/dL RDW Std Deviation 44.2 (36.4-46.3) fL RDW Coeff of Joey 14.8 H (11.5-14.5) % Plt Count 129 L (130-400) K/uL MPV 9.3 (7.4-10.4) fL Immature Gran % (Auto) 0.2 % Neut % (Auto) 77.2 % Lymph % (Auto) 10.0 % [place] % (Auto) 10.5 % Eos % (Auto) 1.7 % Baso % (Auto) 0.4 % Reticulocyte % (Auto) Immature Gran # (Auto) 0.01 (0.00-0.02) K/uL Neut # (Auto) 4.03 (1.4-6.5) K/uL Lymph # (Auto) 0.52 L (1.2-3.4) K/uL [place] # (Auto) 0.55 (0.11-0.59) K/uL Eos # (Auto) 0.09 (0-0.5) K/uL Baso # (Auto) 0.02 (0-0.2) K/uL Reticulocyte # PT 14.7 H (9.0-12.0) Seconds INR 1.5 H (0.9-1.1) APTT 27.9 (21.0-31.0) Seconds PTT Ratio 1.0 Sodium 139 (136-145) mmol/L Potassium 4.1 (3.5-5.1) mmol/L Chloride 103 (98-107) mmol/L Carbon Dioxide 28 (21-32) mmol/L Anion Gap 9.0 (3-11) BUN 51 H (7-18) mg/dl Creatinine 2.88 H (0.6-1.4) mg/dl Est Cr Clr Drug Dosing 32.1 ml/min Est GFR ( Amer) 25.5 Est GFR (Non-Af Amer) 22.0 BUN/Creatinine Ratio 17.7 (10-20) Glucose 254 H (70-99) mg/dl POC Glucose (70-99) Calcium 9.6 (8.5-10.1) mg/dl Magnesium 2.1 (1.8-2.4) mg/dl Total Bilirubin 0.7 (0.2-1) mg/dl AST 25 (15-37) U/L ALT 28 (12-78) U/L Alkaline Phosphatase 95 (45-117) U/L Troponin I 0.044 (0-0.045) ng/ml NT-Pro-B Natriuret Pep 6710 H (0-900) pg/ml Total Protein 6.8 (6.4-8.2) gm/dl Albumin 3.3 L (3.4-5.0) gm/dl Globulin 3.5 (2.5-4.0) gm/dl Albumin/Globulin Ratio 0.9 (0.9-2) Urine Color Urine Appearance (Clear) Urine pH (4.5-7.5) Ur Specific [place] (1.000-1.030) Urine Protein (Negative) Urine Glucose (UA) (Negative) Urine Ketones (Negative) Urine Blood (Negative) Urine Nitrite (Negative) Urine Bilirubin (Negative) Urine Urobilinogen (Negative) Ur Leukocyte Esterase (Negative) Urine WBC (Auto) (0-5) /hpf Urine RBC (Auto) (0-4) /hpf U Hyaline Cast (Auto) (0-5) /lpf U Epithel Cells (Auto) (0-5) /lpf Urine Bacteria (Auto) (Negative) Influenza Type A (PCR) (Neg) Influenza Type B (PCR) (Neg) 08/01/18 08/01/18 08/01/18 Range/Units 19:27 19:45 20:00 WBC (4.8-10.8) K/uL RBC (4.7-6.1) M/uL Hgb (14.0-18.0) g/dL Hct (42-52) % MCV (80-100) fL MCH (25-34) pg MCHC (32-36) g/dL RDW Std Deviation (36.4-46.3) fL RDW Coeff of Joey (11.5-14.5) % Plt Count (130-400) K/uL MPV (7.4-10.4) fL Immature Gran % (Auto) % Neut % (Auto) % Lymph % (Auto) % [place] % (Auto) % Eos % (Auto) % Baso % (Auto) % Reticulocyte % (Auto) Cancelled Immature Gran # (Auto) (0.00-0.02) K/uL Neut # (Auto) (1.4-6.5) K/uL Lymph # (Auto) (1.2-3.4) K/uL [place] # (Auto) (0.11-0.59) K/uL Eos # (Auto) (0-0.5) K/uL Baso # (Auto) (0-0.2) K/uL Reticulocyte # Cancelled PT (9.0-12.0) Seconds INR (0.9-1.1) APTT (21.0-31.0) Seconds PTT Ratio Sodium (136-145) mmol/L Potassium (3.5-5.1) mmol/L Chloride (98-107) mmol/L Carbon Dioxide (21-32) mmol/L Anion Gap (3-11) BUN (7-18) mg/dl Creatinine (0.6-1.4) mg/dl Est Cr Clr Drug Dosing ml/min Est GFR ( Amer) Est GFR (Non-Af Amer) BUN/Creatinine Ratio (10-20) Glucose (70-99) mg/dl POC Glucose (70-99) Calcium (8.5-10.1) mg/dl Magnesium (1.8-2.4) mg/dl Total Bilirubin (0.2-1) mg/dl AST (15-37) U/L ALT (12-78) U/L Alkaline Phosphatase (45-117) U/L Troponin I (0-0.045) ng/ml NT-Pro-B Natriuret Pep (0-900) pg/ml Total Protein (6.4-8.2) gm/dl Albumin (3.4-5.0) gm/dl Globulin (2.5-4.0) gm/dl Albumin/Globulin Ratio (0.9-2) Urine Color Yellow Urine Appearance Clear (Clear) Urine pH 5.0 (4.5-7.5) Ur Specific [place] 1.018 (1.000-1.030) Urine Protein 2+ H (Negative) Urine Glucose (UA) 2+ H (Negative) Urine Ketones Negative (Negative) Urine Blood Negative (Negative) Urine Nitrite Negative (Negative) Urine Bilirubin Negative (Negative) Urine Urobilinogen Negative (Negative) Ur Leukocyte Esterase Negative (Negative) Urine WBC (Auto) 0 (0-5) /hpf Urine RBC (Auto) 0-4 (0-4) /hpf U Hyaline Cast (Auto) 1-5 (0-5) /lpf U Epithel Cells (Auto) 5-10 H (0-5) /lpf Urine Bacteria (Auto) Negative (Negative) Influenza Type A (PCR) Neg for Influ A (Neg) Influenza Type B (PCR) Neg for Influ B (Neg) 08/01/18 Range/Units 23:34 WBC (4.8-10.8) K/uL RBC (4.7-6.1) M/uL Hgb (14.0-18.0) g/dL Hct (42-52) % MCV (80-100) fL MCH (25-34) pg MCHC (32-36) g/dL RDW Std Deviation (36.4-46.3) fL RDW Coeff of Joey (11.5-14.5) % Plt Count (130-400) K/uL MPV (7.4-10.4) fL Immature Gran % (Auto) % Neut % (Auto) % Lymph % (Auto) % [place] % (Auto) % Eos % (Auto) % Baso % (Auto) % Reticulocyte % (Auto) Immature Gran # (Auto) (0.00-0.02) K/uL Neut # (Auto) (1.4-6.5) K/uL Lymph # (Auto) (1.2-3.4) K/uL [place] # (Auto) (0.11-0.59) K/uL Eos # (Auto) (0-0.5) K/uL Baso # (Auto) (0-0.2) K/uL Reticulocyte # PT (9.0-12.0) Seconds INR (0.9-1.1) APTT (21.0-31.0) Seconds PTT Ratio Sodium (136-145) mmol/L Potassium (3.5-5.1) mmol/L Chloride (98-107) mmol/L Carbon Dioxide (21-32) mmol/L Anion Gap (3-11) BUN (7-18) mg/dl Creatinine (0.6-1.4) mg/dl Est Cr Clr Drug Dosing ml/min Est GFR ( Amer) Est GFR (Non-Af Amer) BUN/Creatinine Ratio (10-20) Glucose (70-99) mg/dl POC Glucose 225 H (70-99) Calcium (8.5-10.1) mg/dl Magnesium (1.8-2.4) mg/dl Total Bilirubin (0.2-1) mg/dl AST (15-37) U/L ALT (12-78) U/L Alkaline Phosphatase (45-117) U/L Troponin I (0-0.045) ng/ml NT-Pro-B Natriuret Pep (0-900) pg/ml Total Protein (6.4-8.2) gm/dl Albumin (3.4-5.0) gm/dl Globulin (2.5-4.0) gm/dl Albumin/Globulin Ratio (0.9-2) Urine Color Urine Appearance (Clear) Urine pH (4.5-7.5) Ur Specific [place] (1.000-1.030) Urine Protein (Negative) Urine Glucose (UA) (Negative) Urine Ketones (Negative) Urine Blood (Negative) Urine Nitrite (Negative) Urine Bilirubin (Negative) Urine Urobilinogen (Negative) Ur Leukocyte Esterase (Negative) Urine WBC (Auto) (0-5) /hpf Urine RBC (Auto) (0-4) /hpf U Hyaline Cast (Auto) (0-5) /lpf U Epithel Cells (Auto) (0-5) /lpf Urine Bacteria (Auto) (Negative) Influenza Type A (PCR) (Neg) Influenza Type B (PCR) (Neg) Imaging Data Radiologist's Impression: Radiology results as stated below per my review and the radiologist's interpretation: XR chest 1V portable CLINICAL HISTORY: Dyspnea dyspnea COMPARISON STUDY: 05/20/2018 FINDINGS: Moderate stable cardia megaly. Lungs are clear. There is an implantable cardiac pacemaker. Leads in good position. IMPRESSION: Moderate cardiomegaly. The lungs are clear. The above report was generated using voice recognition software. It may contain grammatical, syntax or spelling errors. Electronically signed by: Billy Phillips M.D. 08/01/2018 7:43 PM ECG Data Attestation: I personally reviewed and interpreted this ECG as follows: Indication: SOB/dyspnea Rate (beats per minute): 76 Rhythm: other (AV paced) Findings: no PVC Comparison ECG Date: from (05/20/18) Change: no significant change Blood Pressure Blood Pressure Findings: Elevated blood pressure Blood Pressure Disposition: further management by hospitalist ABDULLAHI Narrative Patient is a 63-year-old gentleman with a past medical history significant for kidney disease, heart failure, paroxysmal atrial fibrillation on Coumadin, diabetic neuropathy, diabetes presenting today complaining of worsening shortness of breath and significant abdominal distention with some mild leg swelling. Patient is noted to have a subtherapeutic INR. Patient's kidney function actually appears to be slightly better than recent in the past. Has been taking increased doses of his furosemide at home over the last 2 days without improvement. Pro-BMP does show some elevation but lower than previous. Chest x-ray does not show significant pulmonary edema. He denies a history of liver dysfunction and LFTs are within normal limits. Influenza testing is negative. Not acute requiring oxygen at this point but significantly uncomforta ble with abdominal distention. Does not appear to be frankly pulmonary edema but concerned that he has intra-abdominal and third spacing of fluid. Given that this is been worsening and not improving with diuretics given Lasix here. Discussed with the patient and discussed with the hospitalist for admission. Impression & Plan Fluid overload Discharge Plan Visit Data *Final* Discharge Date/Time: 08/01/18 23:09 Chief Complaint: Respiratory Problems Stated Complaint: TROUBLE BREATHING ED Provider: Sheng Sinha Discharge Problem: Fluid overload Patient Disposition: Admitted As Inpatient Discharge Instructions Interventions: ED Discharge Assessment Last Done: 08/01/18 23:09 Discharge Problem: Fluid overload Qualifiers: Hypervolemia type: unspecified Qualified Code(s): E87.70 - Fluid overload, unspecified The scribe's documentation has been prepared under my direction and personally reviewed by me in its entirety. I confirm that the note above accurately reflects all work, treatment, procedures, and medical decision making performed by me.
[2018-08-02 00:38] LABS: Reticulocyte % 2.9 % (0.5-2.0); Reticulocytes # 0.11 10^6/uL (0.02-0.10)
[2018-08-02] MEDS: ISOSORBIDE DINITRATE 10 MG TAB PO SCH ×3 (05:50→16:29)
[2018-08-02 06:07] LABS: Basophils # (auto) 0.01 K/uL (0-0.2); Basophils % (auto) 0.2 %; Eosinophils # (auto) 0.11 K/uL (0-0.5); Eosinophils % (auto) 2.4 %; Hematocrit (blood only) 29.4 % (42-52); Hemoglobin 9.5 g/dL (14.0-18.0); Immature Granulocytes # (auto) 0.01 K/uL (0.00-0.02); Immature Granulocytes % (auto) 0.2 %; Lymphocytes # (auto) 0.59 K/uL (1.2-3.4); Lymphocytes % (auto) 12.6 %; Mean Corpuscular Hgb Conc 32.3 g/dL (32-36); Mean Corpuscular Volume 80.5 fL (80-100); Mean Platelet Volume 8.4 fL (7.4-10.4); Monocytes # (auto) 0.63 K/uL (0.11-0.59); Monocytes % (auto) 13.5 %; Neutrophils # (auto) 3.33 K/uL (1.4-6.5); Neutrophils % (auto) 71.1 %; Platelet Count 118 K/uL (130-400); RDW Coefficient of Variation 14.9 % (11.5-14.5); RDW Standard Deviation 43.7 fL (36.4-46.3); Red Blood Count 3.65 M/uL (4.7-6.1); White Blood Count 4.68 K/uL (4.8-10.8)
[2018-08-02 06:27] LABS: Calcium 9.5 mg/dl (8.5-10.1); Creatinine Clr Calc Pharmacy 31.5 ml/min; Est GFR (African American) 25.1; Est GFR (Non-African American) 21.7; Potassium 3.7 mmol/L (3.5-5.1)
[2018-08-02 06:30] LABS: INR 1.5 (0.9-1.1)
[2018-08-02 06:32] LABS: Ferritin 70.8 ng/ml (8-388); Troponin I 0.039 ng/ml (0-0.045)
--- NOTE | 2018-08-02 07:05 | Ultrasound Report ---
ULTRASOUND BILATERAL LOWER EXTREMITY VENOUS CLINICAL HISTORY: Chronic lower extremity edema. COMPARISON STUDY: Bilateral lower extremity venous ultrasound dated 06/25/2017. TECHNIQUE: Real-time, grayscale, and color Doppler sonography of the deep veins of the right and left lower extremity was performed from the inguinal crease to the calf. Compression and augmentation wer e utilized. FINDINGS: There is no sonographic evidence of deep venous thrombosis identified in the right or left lower extremity. The common femoral, superficial femoral, and popliteal veins are patent and normally compressible bilaterally. The greater saphenous vein and the profunda femoris vein at the junction w ith the common femoral vein are clear in both legs. The visualized calf veins are patent bilaterally. IMPRESSION: There is no sonographic evidence of deep venous thrombosis identified in the right or lef t lower extremity. Electronically signed by: Guerrero Hebert M.D. 08/02/2018 7:04 AM
--- NOTE | 2018-08-02 07:17 | Ultrasound Report ---
Limited abdominal ultrasound for ascites evaluation CLINICAL HISTORY: Abdominal distention, suspected ascites COMPARISON STUDY: CT scan performed May 2017 FINDINGS: Survey images of the abdomen reveal no ascites. IMPRESSION: No ascites identified. Electronically signed by: Indra Aguilar M.D. 08/02/2018 7:15 AM
--- NOTE | 2018-08-02 07:32 | Nephrology Consultation ---
Date of Consultation August 02, 2018 Assessment & Plan (1) CKD (chronic kidney disease) stage 4, GFR 15-29 ml/min: CKD 4 w/ baseline creatinine 2.6-3.0 01/2018-06/2018; at his OP baseline though at upper limit of it. -agree w/ diuretics as below -admission ua remarkable for known proteinuria and recurrent /intermittent glucosuria suggestive here of tubular dysfunction -daily bmp -agree that worsened anemia may well be dilutional but important to monitor for other causes; inr 1.5 Present on Admission?: Yes (2) Fluid overload: -agree w/ lasix as tolerated -for now cont hydralazine as rx'd; may need to reduce if bp lability becomes an issues -cont FR 1.5L -added <2 gm daily Na diet >>>>daily STANDING wts pls and strict I/O -low threshold for cardiology eval if sx worsen Present on Admission?: Yes History of Present Illness Requesting Physician: Dr Dotson Attending Physician: Dr Ames History of Present Illness 63 y/o M whom I'm asked to see for CKD4 after he was admitted last evening for acute on chronic HF, worsening voluem overload. 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 When I saw him in CKD clinic earlier this month he was on a zpak for bronchitis w/ creatinine running high 2's(2.6-3.0 from 01/2018-06/2018, most recently 2.6 on 07/08/18 w/ hgb 11.1). he was slightly volume overlaoded at that time (wts in clinic high 240s in June and 251 07/16, 254 07/19)and was cautiously using daily torsemide to optimize volume without provoking orthostatic hypotension again. Pt is receiving lasix 60 mg iv bid in addition to BB, hydralazine. Allergies Allergy/AdvReac Type Severity Reaction Status Date / Time No Known Allergies Allergy Verified 08/01/18 20:51 Home Medications Home Medications Medication Instructions Recorded Confirmed Type Lantus Solostar U-100 Insulin 52 units SUBCUT HS 02/05/18 08/01/18 History aspirin 81 mg PO DAILY 02/05/18 08/01/18 History cholecalciferol (vitamin D3) 2,000 unit PO DAILY 02/05/18 08/01/18 History [Vitamin D3] insulin lispro [Humalog KwikPen 7 units SUBCUT QAM 02/05/18 08/01/18 History Insulin] insulin lispro [Humalog KwikPen 14 unit SUBCUT BID 02/05/18 08/01/18 History Insulin] isosorbide dinitrate 20 mg PO TID 02/05/18 08/01/18 History metoprolol succinate [Toprol XL] 100 mg PO DAILY 02/05/18 08/01/18 History pantoprazole [Protonix] 40 mg PO DAILY 02/05/18 08/01/18 History rosuvastatin [Crestor] 40 mg PO HS 02/05/18 08/01/18 History gabapentin 100 mg PO TID 05/14/18 08/01/18 History hydralazine 25 mg PO TID 05/20/18 08/01/18 History torsemide See Rx Instructions .ROUTE 05/25/18 08/01/18 Rx .COMPLEX #0 tab albuterol sulfate [ProAir HFA] 2 puff INHALATION Q4 PRN 08/01/18 08/01/18 History fluticasone furoate-vilanterol 1 inh INHALATION DAILY 08/01/18 08/01/18 History [Breo Ellipta] fluticasone propionate [Flonase 2 spray INTRANASAL DAILY PRN 08/01/18 08/01/18 History Allergy Relief] ipratropium-albuterol 3 ml INHALATION QID 08/01/18 08/01/18 History warfarin 5 mg PO DAILY 08/01/18 08/01/18 History Patient History Medical History Diabetic neuropathy (Chronic) Chronic systolic (congestive) heart failure (Chronic) Aortic stenosis (Chronic) Nocturnal hypoxia (Chronic) on 2L NC O2 HS GERD (gastroesophageal reflux disease) (Chronic) Thrombocytopenia (Chronic) Chronic anemia (Chronic) Asthma (Chronic) DM type 2 (diabetes mellitus, type 2) (Chronic) Dyslipidemia (Chronic) Hypertension (Chronic) CAD (coronary artery disease) (Chronic) "nonobstructive" Nonischemic cardiomyopathy (Chronic) "EF 40-45% with mod on 02/04" LBBB (left bundle branch block) (Chronic) Atrial fibrillation (Chronic) on chronic anticoagulation Surgical History H/O cardiac catheterization (Chronic) Non nonobstructive CAD on 2017 cardiac cath Presence of combination internal cardiac defibrillator (ICD) and pacemaker (Chronic) Social History Preferred Language: Romanian Communication Ability: Effective Instantizer Operator Required: No Beliefs That Will Affect Care: None marital status: Current Living Situation: Spouse current occupational status: retired 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 Feels Safe at Home: Yes Safety Concerns: Feels Safe At This Time Smoking Status: Never smoker Hx Alcohol Use: No Hx Substance Use: No Review of Systems Constitutional: + fatigue and + weight gain Eyes: no worsening vision Ear, Nose, Mouth, Throat: no dry mouth Respiratory: + cough and + dyspnea on exertion for upcoming sleep study as OP Cardiovascular: + dyspnea on exertion, + lightheadedness and + edema; no palpitations Gastrointestinal: + early satiety; no vomiting and no change in bowel habits Genitourinary (Male): + urinary frequency; no dysuria and no post-void dribbling Musculoskeletal: + swelling Integumentary: no rash, no non-healing lesions and no skin ulcer Neurologic: + paresthesia and + restless legs Psychiatric: no behavioral changes Endocrine: + fatigue Hematologic / Lymphatic: no easy bleeding Physical Exam Vital Signs (Past 24 Hours): Last Vital Signs Temp 36.8 C 08/02/18 04:00 Pulse 60 08/02/18 04:00 Resp 16 08/02/18 04:00 BP 150/72 H 08/02/18 04:00 Pulse Ox 96 08/01/18 23:08 Constitutional: well developed and well nourished sitting on ra in hallway; ambulatory w/o asst Eyes: EOM intact bilaterally ENMT: Ears: no external ear abnormality Nose: no external nose abnormality Mouth: + dry oral mucous membranes Neck: no nuchal rigidity Respiratory: normal respiratory effort Auscultation: + diminished lung sounds Cardiovascular: Rate/Rhythm: regular rate and regular rhythm Heart Sounds: + murmur Extremities: + edema (trace BL Ankle) Gastrointestinal (Abdomen): Inspection/Auscultation: normal bowel sounds Percussion/Palpation: abdomen soft; abdomen nontender Musculoskeletal: Extremities: strength 5/5 throughout Skin: no rashes, warm and dry Neurologic: mathew, fluent speech, no tremor Results & Data Laboratory Results Abnormal lab results 08/01/18 08/01/18 08/01/18 Range/Units 19:27 19:27 19:27 WBC (4.8-10.8) K/uL RBC 3.76 L (4.7-6.1) M/uL Hgb 9.8 L (14.0-18.0) g/dL Hct 31.0 L (42-52) % MCHC 31.6 L (32-36) g/dL RDW Coeff of Joey 14.8 H (11.5-14.5) % Plt Count 129 L (130-400) K/uL Reticulocyte % (Auto) 2.9 H (0.5-2.0) % Lymph # (Auto) 0.52 L (1.2-3.4) K/uL [place] # (Auto) (0.11-0.59) K/uL Reticulocyte # 0.11 H (0.02-0.10) 10^6/uL PT 14.7 H (9.0-12.0) Seconds INR 1.5 H (0.9-1.1) BUN 51 H (7-18) mg/dl Creatinine 2.88 H (0.6-1.4) mg/dl Glucose 254 H (70-99) mg/dl POC Glucose (70-99) NT-Pro-B Natriuret Pep 6710 H (0-900) pg/ml Albumin 3.3 L (3.4-5.0) gm/dl Urine Protein (Negative) Urine Glucose (UA) (Negative) U Epithel Cells (Auto) (0-5) /lpf 08/01/18 08/01/18 08/02/18 Range/Units 20:00 23:34 05:53 WBC 4.68 L (4.8-10.8) K/uL RBC 3.65 L (4.7-6.1) M/uL Hgb 9.5 L (14.0-18.0) g/dL Hct 29.4 L (42-52) % MCHC (32-36) g/dL RDW Coeff of Joey 14.9 H (11.5-14.5) % Plt Count 118 L (130-400) K/uL Reticulocyte % (Auto) (0.5-2.0) % Lymph # (Auto) 0.59 L (1.2-3.4) K/uL Lawrence # (Auto) 0.63 H (0.11-0.59) K/uL Reticulocyte # (0.02-0.10) 10^6/uL PT (9.0-12.0) Seconds INR (0.9-1.1) BUN (7-18) mg/dl Creatinine (0.6-1.4) mg/dl Glucose (70-99) mg/dl POC Glucose 225 H (70-99) NT-Pro-B Natriuret Pep (0-900) pg/ml Albumin (3.4-5.0) gm/dl Urine Protein 2+ H (Negative) Urine Glucose (UA) 2+ H (Negative) U Epithel Cells (Auto) 5-10 H (0-5) /lpf 08/02/18 08/02/18 Range/Units 05:53 05:53 WBC (4.8-10.8) K/uL RBC (4.7-6.1) M/uL Hgb (14.0-18.0) g/dL Hct (42-52) % MCHC (32-36) g/dL RDW Coeff of Joey (11.5-14.5) % Plt Count (130-400) K/uL Reticulocyte % (Auto) (0.5-2.0) % Lymph # (Auto) (1.2-3.4) K/uL Lawrence # (Auto) (0.11-0.59) K/uL Reticulocyte # (0.02-0.10) 10^6/uL PT 15.0 H (9.0-12.0) Seconds INR 1.5 H (0.9-1.1) BUN 50 H (7-18) mg/dl Creatinine 2.92 H (0.6-1.4) mg/dl Glucose 190 H (70-99) mg/dl POC Glucose (70-99) NT-Pro-B Natriuret Pep (0-900) pg/ml Albumin (3.4-5.0) gm/dl Urine Protein (Negative) Urine Glucose (UA) (Negative) U Epithel Cells (Auto) (0-5) /lpf (1) Fluid overload Hypervolemia type: unspecified Qualified Code(s): E87.70 - Fluid overload, unspecified
[2018-08-02 07:37] LABS: Folate (Folic Acid) 11.98 ng/ml (>5.38)
[2018-08-02] MEDS: PANTOprazole 40 MG TAB PO SCH (08:30)
[2018-08-02] MEDS: ASPIRIN 81 MG ECTAB PO SCH (08:31)
[2018-08-02] MEDS: GABAPENTIN 100 MG CAP PO SCH ×3 (08:31→21:08)
[2018-08-02] MEDS: METOPROLOL SUCC 50MG EXT REL TAB PO SCH (08:31)
[2018-08-02] MEDS: ALBUMIN 25% 50 ML with FUROSEMIDE 60 MG IV SCH ×2 (08:32→21:13)
[2018-08-02] MEDS: WARFARIN SOD 5 MG TAB PO SCH (16:29)
[2018-08-02] MEDS ORDERED: PHARMACY GLYCEMIC MGMT CONSULT PRN (18:00)
--- NOTE | 2018-08-02 18:23 | Hospitalist Progress Note ---
Date of Service August 02, 2018 Assessment & Plan (1) CHF (congestive heart failure): Volume Overload Acute on chronic combined systolic and diastolic CHF Presents with worsening SOB, leg swelling and weight gain CXR:Moderate cardiomegaly. The lungs are clear. Venous Doppler:There is no sonographic evidence of deep venous thrombosis identified in the right or left lower extremity. ABD USD:No ascites identified. Hold PO diuretics Continue IV Lasix Daily weight, I/Os, fluid restriction Low sodium diet Monitor renal function/electrolytes Cardiology/Nephrology consulted H/O COPD/ARPIT/pulmonary hypertension Patient awaiting scheduled for sleep study. Continue home inhalers Oxygen support PRN Chronic LBBB History nonocclusive CAD H/O ischemic Cardiomyopathy S/P ICD Continue home meds Hypertension Slightly elevated Continue Hydralazine, Metoprolol Also on Imdur No VENKATA/ARB due to CKD A. fib on Coumadin Paced rhythm INR subtherapeutic Moderate aortic stenosis on recent TTE Continue Metoprolol Continue Coumadin Monitor INR: 1.5 today Thrombocytopenia: Chronic Monitor CKD IV: Baseline Cr2.6 to 3.0 Monitor renal function while on diuetics Nephrology consulted Chronic anemia Hb dropped from baseline Possibly dilutional from fluid retention Monitor Hb No acute bleeding issues DM II: Last Hb A1C: 9.23 Apr 2018 Update A1C Hold home regimen Continue ISS, lantus Pharmacy consulted for management Abdominal distention: ABD US: No ascites Denies abd pain DVT Px: Coumadin Code Status Full code Subjective Patient is seen and examined at bedside Complains of SOB on exertion, leg swelling Denies any chest pain, Dizziness, nausea No other complaints Physical Exam Vital Signs (Past 24 Hours): Last Vital Signs Temp 36.6 C 08/02/18 11:33 Pulse 107 H 08/02/18 11:33 Resp 16 08/02/18 11:33 BP 146/84 H 08/02/18 11:33 Pulse Ox 95 08/02/18 11:33 Physical Exam: Physical Exam: Vitals signs as noted above General Appearance:Obese, no apparent distress Head: normocephalic, Atraumatic Eyes: normal inspection, EOMI Neck: supple, Trachea midline Respiratory/Chest: Decreased breath sounds, +basal rales Cardiovascular: S1, S2, No murmur Abdomen/GI:Non tender, Bowel sounds present Extremities/Musculoskelatal:normal inspection, B/L LE edema Neurologic/Psych:AAOX3, grossly no focal neurological deficits Skin: normal color, warm Results & Data Laboratory Results Short CBC 08/01/18 08/02/18 Range/Units 19:27 05:53 WBC 5.22 4.68 L (4.8-10.8) K/uL Hgb 9.8 L 9.5 L (14.0-18.0) g/dL Hct 31.0 L 29.4 L (42-52) % Plt Count 129 L 118 L (130-400) K/uL BMP 08/01/18 08/02/18 19:27 05:53 Sodium 139 139 Potassium 4.1 3.7 Chloride 103 102 Carbon Dioxide 28 30 BUN 51 H 50 H Creatinine 2.88 H 2.92 H Glucose 254 H 190 H Calcium 9.6 9.5 Cardiac Enzymes 08/01/18 08/02/18 Range/Units 19:27 05:53 Troponin I 0.044 0.039 (0-0.045) ng/ml Liver Function 08/01/18 Range/Units 19:27 Total Bilirubin 0.7 (0.2-1) mg/dl AST 25 (15-37) U/L ALT 28 (12-78) U/L Alkaline Phosphatase 95 (45-117) U/L Albumin 3.3 L (3.4-5.0) gm/dl Urine 08/01/18 Range/Units 20:00 Urine Color Yellow Urine Appearance Clear (Clear) Urine pH 5.0 (4.5-7.5) Ur Specific [place] 1.018 (1.000-1.030) Urine Protein 2+ H (Negative) Urine Glucose (UA) 2+ H (Negative)
[2018-08-02] MEDS ORDERED: ALBUTEROL HFA INHALER 8.5 GM INH PRN (18:30)
[2018-08-02] MEDS: ALBUT/IPRATROP 3MG/0.5MG NEB 3 ML VIAL INH SCH (19:59)
[2018-08-02] MEDS: ROSUVASTATIN CALCIUM 20 MG TAB PO SCH (21:08)
[2018-08-02] MEDS ORDERED: INSULIN GLARGINE SOLOSTAR 100 UNITS/ML 3 ML PEN SQ STA (21:09)
--- NOTE | 2018-08-02 21:39 | Consultation Report ---
DATE OF CONSULTATION: 08/02/2018 CARDIOLOGY CONSULTATION REFERRING PHYSICIAN: Claudio Dotson MD and Aj Ames MD PRIMARY CARE PHYSICIAN: Mirlande Henning MD INDICATIONS: Congestive heart failure. HISTORY OF PRESENT ILLNESS: The patient is a 63-year-old male with complex past medical history which includes: 1. Nonischemic cardiomyopathy, last ejection fraction of 45% to 50%, though with past ejection fractions as low as 30%. 2. History of compensated systolic heart failure. 3. Chronic left bundle branch block. 4. Status post biventricular pacer defibrillator implantation in June 2017. 5. Chronic renal insufficiency stage IV with chronic anemia. The patient presents this admission noting gradually worsening dyspnea of several days to weeks in duration. The patient feels he has gained at least 20 pounds as an outpatient "just filling up with fluid." He has been compliant with dietary and diuretic regimen per patient. Notes no chest pains. Notes no tachypalpitations. Notes no syncope. Chest this morning, however, has felt full with difficulty with deep inspiration. Notes no unexplained fevers or infections. Notes no bleeding difficulty. Has not been aware of any melena, hematochezia, dysuria, or hematuria. Does attempt to follow a low sodium diet. Blood pressures have been significantly labile in the past but have generally been controlled recently. Has been taking medications as prescribed. Blood pressures were elevated substantially on presentation. ALLERGIES: None. MEDICATIONS: Per list were albuterol inhaler 2 puffs q. 4 hours, aspirin 81 mg per day, vitamin D3 2000 units every day, Breo Ellipta 1 inhalation daily, Flonase 2 puffs daily, gabapentin 100 mg t.i.d., hydralazine 25 t.i.d., Humalog insulin, Atrovent q.i.d., isosorbide dinitrate 20 t.i.d., metoprolol succinate 100 mg p.o. daily, pantoprazole 40 mg p.o. daily, rosuvastatin 40 mg p.o. daily, torsemide variable dosing, and warfarin 5 mg p.o. daily. PAST MEDICAL HISTORY: As outlined above. In addition to list, patient carries a history of type 2 diabetes mellitus insulin requiring, chronic obstructive lung disease, longstanding labile hypertension with past adrenalectomy, calcific aortic valve disease with moderate aortic stenosis. PAST SURGICAL HISTORY: Notable for diagnostic cardiac catheterization last performed in 2011, renal adrenalectomy, pacemaker defibrillator implantation in August of 2017. FAMILY HISTORY: Positive for heart disease in mother. SOCIAL HISTORY: The patient is a nonsmoker, occasional alcohol user. 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 PHYSICAL EXAMINATION: VITAL SIGNS: Today, heart rate is 80, blood pressure is 146/87. HEENT: Normocephalic and atraumatic. NECK: Thick. There is no distinct jugular venous distention. LUNGS: Reveal diminished breath sounds diffusely. ABDOMEN: Soft with moderate distention. EXTREMITIES: Without cyanosis or clubbing. There is 1-2+ lower extremity edema. There is no palpable cord or Homans sign. NEUROLOGIC: The patient is answering questions appropriately for patient. DATA: Chest x-ray reveals clear lung pedersen. Venous Doppler revealed no DVT. Abdominal ultrasound revealed no ascites. LABORATORY STUDIES: White cell count is 4.6, hemoglobin is 9.5, hematocrit is 29.4, platelet count is 118. INR is 1.5. Sodium is 139, potassium is 3.7, chloride is 102, bicarbonate is 30, BUN is 50, creatinine is 2.92. EKG reveals AV sequential pacing with biventricular paced rhythm. IMPRESSION: A 63-year-old male with complex history of longstanding labile hypertension, past nonischemic cardiomyopathy, status post Bi-V pacemaker defibrillator implantation, chronic stage IV renal insufficiency, who presents now with signs and symptoms of acute volume overload without an overt precipitating cause other than elevated blood pressures. PLAN: IV diuretics as ordered per nephrology, we will follow along. Our ultimate goal is controlled hypertension. Reassessment of aortic valve may be warranted. Now 4 months since last echocardiogram. No other acute changes made. The patient is on appropriate therapies and ordered including Toprol, isosorbide, hydralazine, and rosuvastatin.
[2018-08-03] MEDS: INSULIN ASPART 100 UNITS/ML 3 ML PEN SC SCH ×5 (04:59→20:24)
[2018-08-03] MEDS: ALBUT/IPRATROP 3MG/0.5MG NEB 3 ML VIAL INH SCH ×4 (07:09→19:28)
[2018-08-03 08:14] LABS: Hematocrit (blood only) 31.4 % (42-52); Mean Corpuscular Hgb Conc 31.8 g/dL (32-36); Mean Corpuscular Volume 80.5 fL (80-100); Mean Platelet Volume 9.3 fL (7.4-10.4); Platelet Count 131 K/uL (130-400); RDW Coefficient of Variation 14.9 % (11.5-14.5); RDW Standard Deviation 43.3 fL (36.4-46.3); White Blood Count 4.24 K/uL (4.8-10.8)
[2018-08-03 08:21] LABS: INR 1.7 (0.9-1.1); Prothrombin Time 17.2 Seconds (9.0-12.0)
[2018-08-03] MEDS: METOPROLOL SUCC 50MG EXT REL TAB PO SCH (08:35)
[2018-08-03] MEDS: ISOSORBIDE DINITRATE 10 MG TAB PO SCH ×3 (08:35→17:15)
[2018-08-03] MEDS: PANTOprazole 40 MG TAB PO SCH (08:36)
[2018-08-03] MEDS: GABAPENTIN 100 MG CAP PO SCH ×3 (08:37→20:24)
[2018-08-03] MEDS: ASPIRIN 81 MG ECTAB PO SCH (08:38)
[2018-08-03 08:43] LABS: BUN Creatinine Ratio 16.7 (10-20); Calcium 9.4 mg/dl (8.5-10.1); Creatinine Clr Calc Pharmacy 26.5 ml/min; Est GFR (African American) 20.4; Est GFR (Non-African American) 17.6; Potassium 3.6 mmol/L (3.5-5.1)
--- NOTE | 2018-08-03 08:50 | Nephrology Progress Note ---
Date of Service August 03, 2018 Assessment & Plan (1) Acute renal failure superimposed on stage 4 chronic kidney disease: CKD 4 w/ baseline creatinine 2.6-3.0 01/2018-06/2018; at his OP baseline though at upper limit of it on presentation 08/01; now on 08/03 w/ PAM on CKD -diuretics on hold today > cont other fluid mgt strategies as below -admission ua remarkable for known proteinuria and recurrent /intermittent glucosuria suggestive here of tubular dysfunction -daily bmp -agree that worsened anemia may well be dilutional but important to monitor for other causes; inr 1.5 -check orthostatics -updated hospitalist of labile sx of lightheadedness/blurred vision (?relation to bg) Present on Admission?: No (2) Fluid overload: -hold lasix today -for now cont hydralazine as rx'd; may need to reduce if bp lability becomes an issues -cont FR 1.5L -added <2 gm daily Na diet >>>>daily STANDING wts pls and strict I/O -cardiology following/ input appreciated Subjective seen on rounds this am; ambulatory; intermittent dizziness; intermittent blurred vision >> these w/o direct relation to activity; marked exertional dyspnea; no n/v; some improved edema > reminded pt of importance of I/O and daily wts Physical Exam Vital Signs (Past 24 Hours): Last Vital Signs Temp 36.8 C 08/03/18 07:24 Pulse 70 08/03/18 07:34 Resp 18 08/03/18 07:24 BP 138/84 08/03/18 07:24 Pulse Ox 95 08/03/18 07:24 Constitutional: well developed and well nourished on ra ambulatory sits up in chair > reports intermittent lightheadedness/blurred vision changing from one minute to next in interview Eyes: EOM intact bilaterally ENMT: Ears: no external ear abnormality Nose: no external nose abnormality Mouth: + dry oral mucous membranes Neck: no nuchal rigidity Respiratory: normal respiratory effort Auscultation: + diminished lung sounds and + crackles (R base) Cardiovascular: Rate/Rhythm: regular rate and regular rhythm Heart Sounds: + murmur Extremities: + edema (trace BL Ankle at most) Gastrointestinal (Abdomen): Inspection/Auscultation: normal bowel sounds Percussion/Palpation: abdomen soft; abdomen nontender Musculoskeletal: Extremities: strength 5/5 throughout Skin: no rashes, warm and dry Neurologic: mathew, fluent speech; not obviously off balance Results & Data Laboratory Results Abnormal lab results 08/02/18 08/02/18 08/02/18 Range/Units 11:43 16:48 20:33 WBC (4.8-10.8) K/uL RBC (4.7-6.1) M/uL Hgb (14.0-18.0) g/dL Hct (42-52) % MCHC (32-36) g/dL RDW Coeff of Joey (11.5-14.5) % PT (9.0-12.0) Seconds INR (0.9-1.1) BUN (7-18) mg/dl Creatinine (0.6-1.4) mg/dl Glucose (70-99) mg/dl POC Glucose 277 H 341 H 228 H (70-99) 08/02/18 08/03/18 08/03/18 Range/Units 23:51 03:47 03:48 WBC (4.8-10.8) K/uL RBC (4.7-6.1) M/uL Hgb (14.0-18.0) g/dL Hct (42-52) % MCHC (32-36) g/dL RDW Coeff of Joey (11.5-14.5) % PT (9.0-12.0) Seconds INR (0.9-1.1) BUN (7-18) mg/dl Creatinine (0.6-1.4) mg/dl Glucose (70-99) mg/dl POC Glucose 195 H 64 L* 61 L* (70-99) 08/03/18 08/03/18 08/03/18 Range/Units 07:14 07:14 07:14 WBC 4.24 L (4.8-10.8) K/uL RBC 3.90 L (4.7-6.1) M/uL Hgb 10.0 L (14.0-18.0) g/dL Hct 31.4 L (42-52) % MCHC 31.8 L (32-36) g/dL RDW Coeff of Joey 14.9 H (11.5-14.5) % PT 17.2 H (9.0-12.0) Seconds INR 1.7 H (0.9-1.1) BUN 58 H (7-18) mg/dl Creatinine 3.47 H D (0.6-1.4) mg/dl Glucose 118 H (70-99) mg/dl POC Glucose (70-99) (1) Acute renal failure superimposed on stage 4 chronic kidney disease Acute renal failure type: unspecified Qualified Code(s): N17.9 - Acute kidney failure, unspecified; N18.4 - Chronic kidney disease, stage 4 (severe) (2) Fluid overload Hypervolemia type: unspecified Qualified Code(s): E87.70 - Fluid overload, unspecified
[2018-08-03 10:04] LABS: Estimated Average Glucose 223 mg/dl; Hemoglobin A1C 9.4 % (4.5-5.6)
--- NOTE | 2018-08-03 13:30 | Pharmacy Report ---
Glycemic Control Consultation - Date of Service August 03, 2018 - Scope Scope: Glycemic Pharmacist consulted for glycemic control and to write orders per [facility] inpatient glycemic control protocol - Objective Weight: 115 kg Accuchecks BSG (last 24hrs): 08/02/18 08/02/18 08/02/18 16:48 20:33 23:51 Glucose POC Glucose 341 H 228 H 195 H 08/03/18 08/03/18 08/03/18 03:47 03:48 04:11 Glucose POC Glucose 64 L* 61 L* 70 08/03/18 08/03/18 08/03/18 07:14 11:46 11:47 Glucose 118 H POC Glucose 311 H* 286 H 08/03/18 11:48 Glucose POC Glucose 290 H Laboratory Data (last 24hrs): 08/03/18 07:14 Potassium 3.6 Carbon Dioxide 30 Anion Gap 7.0 Creatinine 3.47 H D Est Cr Clr Drug Dosing 26.5 HbA1c: Hemoglobin A1c 9.4 % (4.5-5.6) H 08/03/18 07:14 - Recent Pertinent Medications Outpatient Anti-diabetic Regimen: * Lantus 52 units SC HS * Humalog AC - 7, 14, 14 units respectively * A1c = 9.4 % 08/03/18 The patient is currently receiving: * Basal insulin: Lantus 30 units BID 08/01 PM-08/02 AM and 40 units x1 08/02 PM * Correctional Insulin: Novolog Correction per scale ACHS Goal Range: Low 110 mg/dL - High 140 mg/dL Correction Factor: 20 mg/dL/unit * Prandial insulin: Per carb ratio of 1 unit per 7 grams CHO consumed Risk Factors for Insulin Resistance: * Diet: T2DM - Assessment & Plan Assessment & Plan: ASSESSMENT: * 63 yo M admitted with CHF exacerbation and BSG's in the 300's * Basal insulin * Aggressive Lantus dosing on 08/01 and 08/02 (total of 70 units on 08/02) caused hypoglycemia overnight last night in the 60's. * On previous admission, AM fasting in range or slightly elevated on Lantus dose of 30 units/day * No additional Lantus this AM (patient already received 40 units last night). Ongoing Lantus qHS (similar to outpatient schedule), but dose based on BSG (per data from previous admission) * Bolus insulin * BSG's once again elevated at lunch today, but this was due to the correction factor of 15 being used for the CHO ratio this AM (instead of ordered carb ratio of 5 g CHO/unit) * Will resume Novolog regimen from prior admission PLAN FOR INPATIENT GLYCEMIC CONTROL: * Basal insulin * Lantus 30 units HS for BSG < 140 mg/dL * Lantus 40 units HS for BSG >= 140 mg/dL * Bolus insulin * NovoLog per scale ACHS or Q6hrs while NPO * Goal Range: Low 110 mg/dL - High 140 mg/dL * Correction Factor: 15 mg/dL/unit * Nutritional / Prandial insulin per carb ratio of 1 unit per 5 grams CHO consumed * Please note that the plan above was derived based on current level of insulin resistance and hospital stress. These recommendations are appropriate for inpatient admission only. Plan of care upon discharge will need to be reassessed to avoid potential outpatient hypo/hyperglycemia. Thank you.
--- NOTE | 2018-08-03 14:49 | Cardiology Progress Note ---
Date of Service August 03, 2018 Assessment & Plan (1) CHF (congestive heart failure): Currently comfortable after transient diuresis the creatinine rising. No increased dyspnea orthopnea or peripheral edema (2) Acute renal failure superimposed on stage 4 chronic kidney disease: (3) Fluid overload: (4) Nonischemic cardiomyopathy: (5) Presence of combination internal cardiac defibrillator (ICD) and pacemaker: Device of functioning appropriately probable short run of atrial fibrillation with aberrant conduction earlier today, although ventricular tachycardia not completely excluded patient is on appropriate therapy. AICD in place (6) Aortic stenosis: Given recent decline in functional capacity and volume overload we will repeat echocardiogram to reassess LV function and aortic stenosis severity Subjective Patient seen and examined, chart, telemetry reviewed. Patient feels improved slightly today less dyspneic. Notes no chest pain or discomfort. Patient had a 10 beat run of wide-complex tachycardia earlier today asymptomatic possibly accelerated inherent rhythm versus ventricular No other issues. Diuretics held today due to rising creatinine Physical Exam Vital Signs (Past 24 Hours): Last Vital Signs Temp 36.8 C 08/03/18 12:10 Pulse 62 08/03/18 12:10 Resp 18 08/03/18 12:10 BP 135/79 08/03/18 12:10 Pulse Ox 95 08/03/18 12:10 Constitutional: WD/WN, vitals as above Eyes: PERRL, conjunctivae normal, anicteric sclerae Neck: trachea midline, no thyromegaly Respiratory: normal respiratory effort, lungs clear to auscultation Cardiovascular: Rate/Rhythm: regular rate and regular rhythm Heart Sounds: normal S1, normal S2 and + murmur (Grade 2/6 to 3/6 systolic murmur right upper sternal border no diastolic murmur) Gastrointestinal (Abdomen): normal bowel sounds, soft, nontender, no hepatosplenomegaly Musculoskeletal: no cyanosis or clubbing, extremities motor strength 5/5 Results & Data Laboratory Results Laboratory Results - last 24 hr 08/02/18 08/02/18 08/02/18 16:48 20:33 23:51 WBC RBC Hgb Hct MCV MCH MCHC RDW Std Deviation RDW Coeff of Joey Plt Count MPV PT INR Sodium Potassium Chloride Carbon Dioxide Anion Gap BUN Creatinine Est Cr Clr Drug Dosing Est GFR ( Amer) Est GFR (Non-Af Amer) BUN/Creatinine Ratio Glucose POC Glucose 341 H 228 H 195 H Estimat Average Glucose Hemoglobin A1c Calcium 08/03/18 08/03/18 08/03/18 03:47 03:48 04:11 WBC RBC Hgb Hct MCV MCH MCHC RDW Std Deviation RDW Coeff of Joey Plt Count MPV PT INR Sodium Potassium Chloride Carbon Dioxide Anion Gap BUN Creatinine Est Cr Clr Drug Dosing Est GFR ( Amer) Est GFR (Non-Af Amer) BUN/Creatinine Ratio Glucose POC Glucose 64 L* 61 L* 70 Estimat Average Glucose Hemoglobin A1c Calcium 08/03/18 08/03/18 08/03/18 07:14 07:14 07:14 WBC 4.24 L RBC 3.90 L Hgb 10.0 L Hct 31.4 L MCV 80.5 MCH 25.6 MCHC 31.8 L RDW Std Deviation 43.3 RDW Coeff of Joey 14.9 H Plt Count 131 MPV 9.3 PT 17.2 H INR 1.7 H Sodium 139 Potassium 3.6 Chloride 102 Carbon Dioxide 30 Anion Gap 7.0 BUN 58 H Creatinine 3.47 H D Est Cr Clr Drug Dosing 26.5 Est GFR ( Amer) 20.4 Est GFR (Non-Af Amer) 17.6 BUN/Creatinine Ratio 16.7 Glucose 118 H POC Glucose Estimat Average Glucose Hemoglobin A1c Calcium 9.4 08/03/18 08/03/18 08/03/18 07:14 11:46 11:47 WBC RBC Hgb Hct MCV MCH MCHC RDW Std Deviation RDW Coeff of Joey Plt Count MPV PT INR Sodium Potassium Chloride Carbon Dioxide Anion Gap BUN Creatinine Est Cr Clr Drug Dosing Est GFR ( Amer) Est GFR (Non-Af Amer) BUN/Creatinine Ratio Glucose POC Glucose 311 H* 286 H Estimat Average Glucose 223 Hemoglobin A1c 9.4 H Calcium 08/03/18 11:48 WBC RBC Hgb Hct MCV MCH MCHC RDW Std Deviation RDW Coeff of Joey Plt Count MPV PT INR Sodium Potassium Chloride Carbon Dioxide Anion Gap BUN Creatinine Est Cr Clr Drug Dosing Est GFR ( Amer) Est GFR (Non-Af Amer) BUN/Creatinine Ratio Glucose POC Glucose 290 H Estimat Average Glucose Hemoglobin A1c Calcium ECG Additional Comments: AV sequential paced with biventricular pacer (1) Acute renal failure superimposed on stage 4 chronic kidney disease Acute renal failure type: unspecified Qualified Code(s): N17.9 - Acute kidney failure, unspecified; N18.4 - Chronic kidney disease, stage 4 (severe) (2) Fluid overload Hypervolemia type: unspecified Qualified Code(s): E87.70 - Fluid overload, unspecified (3) Aortic stenosis Cardiac valve disease etiology: nonrheumatic Qualified Code(s): I35.0 - Nonrheumatic aortic (valve) stenosis
[2018-08-03] MEDS: WARFARIN SOD 5 MG TAB PO SCH (16:04)
--- NOTE | 2018-08-03 18:09 | Hospitalist Progress Note ---
Date of Service August 03, 2018 Assessment & Plan (1) CHF (congestive heart failure): Volume Overload Acute on chronic combined systolic and diastolic CHF Presents with worsening SOB, leg swelling and weight gain CXR:Moderate cardiomegaly. The lungs are clear. Venous Doppler:There is no sonographic evidence of deep venous thrombosis identified in the right or left lower extremity. ABD USD:No ascites identified. Hold PO diuretics IV Lasix held due to PAM Daily weight, I/Os, fluid restriction Low sodium diet Monitor renal function/electrolytes Appreciate Cardiology/Nephrology Input AICD Interrogated Check Orthostatics for dizziness ECHO: EF: 45-50%, borderline global hypokinesis of the left ventricle, moderate concentric LVH, Moderate to sever , Trace MR H/O COPD/ARPIT/pulmonary hypertension Patient awaiting scheduled for sleep study. Continue home inhalers Oxygen support PRN Chronic LBBB History nonocclusive CAD H/O ischemic Cardiomyopathy S/P ICD Continue current meds Hypertension Stable Continue Hydralazine, Metoprolol Also on Imdur No VENKATA/ARB due to CKD A. fib on Coumadin Paced rhythm INR subtherapeutic Moderate aortic stenosis on recent TTE Continue Metoprolol Continue Coumadin Monitor INR: 1.7 today Thrombocytopenia: Chronic Monitor PAM on CKD IV: Baseline Cr2.6 to 3.0 Cr:3.47 today Monitor renal function while on diuetics Appreciate Nephrology Input Chronic anemia Hb stable Possibly dilutional from fluid retention No acute bleeding issues DM II: Last Hb A1C: 9.23 Apr 2018 Update A1C:9.4 Hold home regimen Continue ISS, lantus Pharmacy consulted for management Abdominal distention: ABD US: No ascites Denies abd pain DVT Px: Coumadin Code Status Full code Subjective Patient is seen and examined at bedside Reports intermittent dizziness SOB, cough unchanged as per patient leg swelling better Denies any chest pain, Dizziness, nausea No other complaints Physical Exam Vital Signs (Past 24 Hours): Last Vital Signs Temp 36.7 C 08/03/18 14:59 Pulse 64 08/03/18 15:59 Resp 18 08/03/18 15:11 BP 127/77 08/03/18 14:59 Pulse Ox 94 08/03/18 15:11 Physical Exam: Physical Exam: Vitals signs as noted above General Appearance:Obese, no apparent distress Head: normocephalic, Atraumatic Eyes: normal inspection, EOMI Neck: supple, Trachea midline Respiratory/Chest: Decreased breath sounds, +basal rales Cardiovascular: S1, S2, No murmur Abdomen/GI:Non tender, Bowel sounds present Extremities/Musculoskelatal:normal inspection, Trace edema Neurologic/Psych:AAOX3, grossly no focal neurological deficits Skin: normal color, warm Results & Data Laboratory Results Short CBC 08/03/18 Range/Units 07:14 WBC 4.24 L (4.8-10.8) K/uL Hgb 10.0 L (14.0-18.0) g/dL Hct 31.4 L (42-52) % Plt Count 131 (130-400) K/uL BMP 08/03/18 07:14 Sodium 139 Potassium 3.6 Chloride 102 Carbon Dioxide 30 BUN 58 H Creatinine 3.47 H D Glucose 118 H Calcium 9.4
[2018-08-03] MEDS: ROSUVASTATIN CALCIUM 20 MG TAB PO SCH (20:23)
[2018-08-03] MEDS ORDERED: INSULIN GLARGINE SOLOSTAR 100 UNITS/ML 3 ML PEN SC SCH (21:00)
[2018-08-04 05:49] LABS: Hematocrit (blood only) 30.4 % (42-52); Hemoglobin 9.5 g/dL (14.0-18.0); Mean Corpuscular Hgb Conc 31.3 g/dL (32-36); Mean Corpuscular Volume 82.6 fL (80-100); Mean Platelet Volume 8.6 fL (7.4-10.4); Platelet Count 125 K/uL (130-400); RDW Coefficient of Variation 15.2 % (11.5-14.5); RDW Standard Deviation 45.9 fL (36.4-46.3); Red Blood Count 3.68 M/uL (4.7-6.1); White Blood Count 5.22 K/uL (4.8-10.8)
[2018-08-04 05:57] LABS: INR 1.7 (0.9-1.1); Prothrombin Time 16.9 Seconds (9.0-12.0)
[2018-08-04 06:06] LABS: BUN Creatinine Ratio 14.8 (10-20); Creatinine Clr Calc Pharmacy 20.7 ml/min; Est GFR (African American) 15.1; Est GFR (Non-African American) 13.1; Potassium 3.6 mmol/L (3.5-5.1)
[2018-08-04] MEDS: ISOSORBIDE DINITRATE 10 MG TAB PO SCH ×5 (07:28→17:16)
[2018-08-04] MEDS: ALBUT/IPRATROP 3MG/0.5MG NEB 3 ML VIAL INH SCH ×4 (07:49→19:33)
[2018-08-04] MEDS: ASPIRIN 81 MG ECTAB PO SCH (08:17)
[2018-08-04] MEDS: PANTOprazole 40 MG TAB PO SCH (08:17)
[2018-08-04] MEDS: GABAPENTIN 100 MG CAP PO SCH ×3 (08:19→20:55)
[2018-08-04] MEDS: METOPROLOL SUCC 50MG EXT REL TAB PO SCH (08:20)
[2018-08-04] MEDS: INSULIN ASPART 100 UNITS/ML 3 ML PEN SC SCH ×4 (08:20→20:56)
--- NOTE | 2018-08-04 10:59 | Cardiology Progress Note ---
Date of Service August 04, 2018 Assessment & Plan (1) CHF (congestive heart failure): Patient presented with volume overload which did improve clinically after diuresis however with elevated creatinine Currently comfortable (2) Acute renal failure superimposed on stage 4 chronic kidney disease: (3) Fluid overload: (4) Aortic stenosis: Echo cardiogram demonstrates borderline severe aortic stenosis. Diagnosis certainly adds to difficulties with management of chronic volume status. Intervention of valve replacement may be warranted in the future but at obvious risk of renal function We will manage with nephrology (5) Nonischemic cardiomyopathy: (6) Presence of combination internal cardiac defibrillator (ICD) and pacemaker: Device of functioning appropriately probable short run of atrial fibri llation with aberrant conduction earlier today, although ventricular tachycardia not completely excluded patient is on appropriate therapy. AICD in place Subjective Patient seen and examined, chart, telemetry reviewed. Patient feels improved slightly today less dyspneic. No further arrhythmias. No significant edema. Weight appears down from admission Physical Exam Vital Signs (Past 24 Hours): Last Vital Signs Temp 36.8 C 08/04/18 07:23 Pulse 75 08/04/18 08:24 Resp 18 08/04/18 07:53 BP 153/80 H 08/04/18 08:24 Pulse Ox 92 08/04/18 07:53 Constitutional: WD/WN, vitals as above Eyes: PERRL, conjunctivae normal, anicteric sclerae Neck: trachea midline, no thyromegaly Respiratory: normal respiratory effort, lungs clear to auscultation Cardiovascular: Rate/Rhythm: regular rate and regular rhythm Heart Sounds: normal S1, normal S2 and + murmur (Grade 2/6 to 3/6 systolic murmur right upper sternal border no diastolic murmur) Extremities: no pedal edema Gastrointestinal (Abdomen): normal bowel sounds, soft, nontender, no hepatosplenomegaly Musculoskeletal: no cyanosis or clubbing, extremities motor strength 5/5 Results & Data Laboratory Results Laboratory Results - last 24 hr 08/03/18 08/03/18 08/03/18 11:46 11:47 11:48 WBC RBC Hgb Hct MCV MCH MCHC RDW Std Deviation RDW Coeff of Joey Plt Count MPV PT INR Sodium Potassium Chloride Carbon Dioxide Anion Gap BUN Creatinine Est Cr Clr Drug Dosing Est GFR ( Amer) Est GFR (Non-Af Amer) BUN/Creatinine Ratio Glucose POC Glucose 311 H* 286 H 290 H Calcium 08/03/18 08/03/18 08/03/18 16:36 16:37 16:38 WBC RBC Hgb Hct MCV MCH MCHC RDW Std Deviation RDW Coeff of Joey Plt Count MPV PT INR Sodium Potassium Chloride Carbon Dioxide Anion Gap BUN Creatinine Est Cr Clr Drug Dosing Est GFR ( Amer) Est GFR (Non-Af Amer) BUN/Creatinine Ratio Glucose POC Glucose 497 H* 304 H* 343 H* Calcium 08/03/18 08/03/18 08/04/18 19:09 20:15 03:23 WBC RBC Hgb Hct MCV MCH MCHC RDW Std Deviation RDW Coeff of Joey Plt Count MPV PT INR Sodium Potassium Chloride Carbon Dioxide Anion Gap BUN Creatinine Est Cr Clr Drug Dosing Est GFR ( Amer) Est GFR (Non-Af Amer) BUN/Creatinine Ratio Glucose POC Glucose 212 H 171 H 87 Calcium 08/04/18 08/04/18 08/04/18 05:28 05:28 05:28 WBC 5.22 RBC 3.68 L Hgb 9.5 L Hct 30.4 L MCV 82.6 MCH 25.8 MCHC 31.3 L RDW Std Deviation 45.9 RDW Coeff of Joey 15.2 H Plt Count 125 L MPV 8.6 PT 16.9 H INR 1.7 H Sodium 141 Potassium 3.6 Chloride 102 Carbon Dioxide 30 Anion Gap 9.0 BUN 66 H Creatinine 4.44 H D Est Cr Clr Drug Dosing 20.7 Est GFR ( Amer) 15.1 Est GFR (Non-Af Amer) 13.1 BUN/Creatinine Ratio 14.8 Glucose 111 H POC Glucose Calcium 9.0 08/04/18 07:13 WBC RBC Hgb Hct MCV MCH MCHC RDW Std Deviation RDW Coeff of Joey Plt Count MPV PT INR Sodium Potassium Chloride Carbon Dioxide Anion Gap BUN Creatinine Est Cr Clr Drug Dosing Est GFR ( Amer) Est GFR (Non-Af Amer) BUN/Creatinine Ratio Glucose POC Glucose 131 H Calcium (1) Aortic stenosis Cardiac valve disease etiology: nonrheumatic Qualified Code(s): I35.0 - Nonrheumatic aortic (valve) stenosis (2) Acute renal failure superimposed on stage 4 chronic kidney disease Acute renal failure type: unspecified Qualified Code(s): N17.9 - Acute kidney failure, unspecified; N18.4 - Chronic kidney disease, stage 4 (severe) (3) Fluid overload Hypervolemia type: unspecified Qualified Code(s): E87.70 - Fluid overload, unspecified
[2018-08-04] MEDS: WARFARIN SOD 5 MG TAB PO SCH (15:47)
[2018-08-04] MEDS ORDERED: SODIUM CHLORIDE 0.9% 1000ML 250 ML IV ONE (18:29)
--- NOTE | 2018-08-04 18:35 | Hospitalist Progress Note ---
Date of Service August 04, 2018 Assessment & Plan (1) CHF (congestive heart failure): Volume Overload Acute on chronic combined systolic and diastolic CHF Presented with worsening SOB, leg swelling and weight gain CXR:Moderate cardiomegaly. The lungs are clear. Venous Doppler:There is no sonographic evidence of deep venous thrombosis identified in the right or left lower extremity. ABD USD:No ascites identified. AICD Interrogated ECHO: EF: 45-50%, borderline global hypokinesis of the left ventricle, moderate concentric LVH, Moderate to sever , Trace MR on this admission from 08/01/18, patient had been on Lasix 60 mg IV BID but Lasix discontinued on 08/04/18 due to worsening renal function. will give small bolus of normal saline 250 cc continue daily weights and fluid restriction with low sodium diet Abdominal distention: ABD US: No ascites Denies abdominal; pain perhaps this is trucnal obesity? PAM on CKD IV: Baseline Cr2.6 to 3.0 Cr:4.44 today Lasix discontinued on 08/04/18 due to worsening renal function. will give small bolus of normal saline 250 cc H/O COPD/ARPIT/pulmonary hypertension Patient awaiting scheduled sleep study as outpatient Continue home inhalers Oxygen support PRN Chronic LBBB History nonocclusive CAD H/O ischemic Cardiomyopathy has ICD Continue current meds Hypertension Stable Continue Hydralazine, Metoprolol Also on Imdur No VENKATA/ARB due to CKD A. fib on Coumadin Paced rhythm Moderate aortic stenosis on recent TTE Continue Metoprolol Monitor INR: 1.7, continue coumadin 5 mg daily Thrombocytopenia: Chronic Monitor Chronic anemia Hb stable Type 2 diabetes mellitus with hyperglycemia current HbA1C:9.4 Hold home regimen blood sugar above 400 on 08/03/18 Continue ISS, lantus Pharmacy consulted for management DVT Px: Coumadin Code Status Full code Subjective Patient seen and examined, chart, telemetry reviewed. Patient feels improved slightly today less dyspneic. No further arrhythmias. No significant edema. Weight appears down from admission Physical Exam Constitutional: WD/WN, vitals as above Eyes: PERRL, conjunctivae normal, anicteric sclerae EOM intact bilaterally ENMT: external ear and nose normal, oropharynx normal Neck: trachea midline, no thyromegaly Respiratory: normal respiratory effort, lungs clear to auscultation Cardiovascular: Rate/Rhythm: regular rate and regular rhythm Gastrointestinal (Abdomen): normal bowel sounds, soft, nontender, no hepatosplenomegaly Musculoskeletal: Head/Neck/Chest: normocephalic and head atraumatic no leg edema appreciated Neurologic: PERRL, EOMI, accommodation nl, no face palsy, no dysarthria CN's II-XI intact bilaterally Psychiatric: A+Ox3, euthymic affect Results & Data Vital Signs (Past 12 Hours) Vital Signs Temp Pulse Resp BP Pulse Ox 08/04/18 16:08 61 18 96 08/04/18 15:06 36.4 C L 68 18 150/84 H 97 08/04/18 11:14 68 20 98 08/04/18 11:07 36.6 C 63 20 137/80 93 08/04/18 08:24 75 153/80 H 08/04/18 07:53 73 18 92 08/04/18 07:23 36.8 C 71 20 93/55 L 90
--- NOTE | 2018-08-04 19:30 | Nephrology Progress Note ---
Date of Service August 04, 2018 Assessment & Plan (1) Acute renal failure superimposed on stage 4 chronic kidney disease: CKD 4 w/ baseline creatinine 2.6-3.0 01/2018-06/2018; at his OP baseline though at upper limit of it on presentation 08/01; now on 08/03 w/ PAM on CKD >> creat up to 4.4 today and climbinb -diuretics on hold again today > cont other fluid mgt strategies as below -admission ua remarkable for known proteinuria and recurrent /intermittent glucosuria suggestive here of tubular dysfunction -daily bmp -agree that worsened anemia may well be dilutional but important to monitor for other causes; inr 1.5 -f/u orthostatics (2) Fluid overload: -hold lasix again today -for now cont hydralazine as rx'd; may need to reduce if bp lability becomes an issues -cont FR 1.5L -added <2 gm daily Na diet >>>>daily STANDING wts pls and strict I/O -cardiology following/ input appreciated Subjective seen on rounds this am at 0745; ongoing intermittent blurred vision; breathing improving w/ breathing tx; lasix on hold d/t PAM yesterday; feels edema improving; denies voiding sx; tolerating po Review of Systems Review of Systems: All systems reviewed & are unremarkable except as noted in HPI & below Constitutional: + fatigue and + weakness Respiratory: + dyspnea on exertion Endocrine: + fatigue Physical Exam Constitutional: well developed and well nourished; no acute distress sitting in bed on ra/getting breathing tx Eyes: EOM intact bilaterally ENMT: Ears: no external ear abnormality Nose: no external nose abnormality Mouth: + dry oral mucous membranes Neck: no nuchal rigidity Respiratory: normal respiratory effort Auscultation: + diminished lung sounds; no crackles (R base resolved) Cardiovascular: Rate/Rhythm: regular rate and regular rhythm Heart Sounds: + murmur Extremities: no edema (trace BL Ankle at most) Gastrointestinal (Abdomen): Inspection/Auscultation: normal bowel sounds Percussion/Palpation: abdomen soft; abdomen nontender Musculoskeletal: Extremities: strength 5/5 throughout Skin: no rashes, warm and dry Neurologic: mathew, fluent speech Results & Data Vital Signs (Past 12 Hours) Vital Signs Temp Pulse Resp BP Pulse Ox 08/04/18 16:08 61 18 96 08/04/18 15:06 36.4 C L 68 18 150/84 H 97 08/04/18 11:14 68 20 98 08/04/18 11:07 36.6 C 63 20 137/80 93 08/04/18 08:24 75 153/80 H 08/04/18 07:53 73 18 92 Laboratory Results Abnormal lab results 08/03/18 08/04/18 08/04/18 Range/Units 20:15 05:28 05:28 RBC 3.68 L (4.7-6.1) M/uL Hgb 9.5 L (14.0-18.0) g/dL Hct 30.4 L (42-52) % MCHC 31.3 L (32-36) g/dL RDW Coeff of Joey 15.2 H (11.5-14.5) % Plt Count 125 L (130-400) K/uL PT 16.9 H (9.0-12.0) Seconds INR 1.7 H (0.9-1.1) BUN (7-18) mg/dl Creatinine (0.6-1.4) mg/dl Glucose (70-99) mg/dl POC Glucose 171 H (70-99) 08/04/18 08/04/18 Range/Units 05:28 07:13 RBC (4.7-6.1) M/uL Hgb (14.0-18.0) g/dL Hct (42-52) % MCHC (32-36) g/dL RDW Coeff of Joey (11.5-14.5) % Plt Count (130-400) K/uL PT (9.0-12.0) Seconds INR (0.9-1.1) BUN 66 H (7-18) mg/dl Creatinine 4.44 H D (0.6-1.4) mg/dl Glucose 111 H (70-99) mg/dl POC Glucose 131 H (70-99) (1) Acute renal failure superimposed on stage 4 chronic kidney disease Acute renal failure type: unspecified Qualified Code(s): N17.9 - Acute kidney failure, unspecified; N18.4 - Chronic kidney disease, stage 4 (severe) (2) Fluid overload Hypervolemia type: unspecified Qualified Code(s): E87.70 - Fluid overload, unspecified
[2018-08-04] MEDS: ROSUVASTATIN CALCIUM 20 MG TAB PO SCH (20:55)
[2018-08-04] MEDS ORDERED: INSULIN GLARGINE SOLOSTAR 100 UNITS/ML 3 ML PEN SC SCH (21:00)
[2018-08-05] MEDS: ISOSORBIDE DINITRATE 10 MG TAB PO SCH ×2 (06:02→12:24)
[2018-08-05] MEDS: ALBUT/IPRATROP 3MG/0.5MG NEB 3 ML VIAL INH SCH ×2 (07:28→11:06)
[2018-08-05] MEDS: PANTOprazole 40 MG TAB PO SCH (07:40)
[2018-08-05] MEDS: METOPROLOL SUCC 50MG EXT REL TAB PO SCH (07:40)
[2018-08-05] MEDS: ASPIRIN 81 MG ECTAB PO SCH (07:40)
[2018-08-05] MEDS: GABAPENTIN 100 MG CAP PO SCH ×2 (07:41→13:13)
[2018-08-05 07:51] LABS: INR 1.7 (0.9-1.1); Prothrombin Time 16.5 Seconds (9.0-12.0)
[2018-08-05] MEDS: INSULIN ASPART 100 UNITS/ML 3 ML PEN SC SCH ×2 (08:05→12:22)
[2018-08-05 08:16] LABS: BUN Creatinine Ratio 16.2 (10-20); Calcium 9.2 mg/dl (8.5-10.1); Creatinine Clr Calc Pharmacy 23.8 ml/min; Est GFR (African American) 18.2; Est GFR (Non-African American) 15.7; Potassium 3.8 mmol/L (3.5-5.1)
[2018-08-05] MEDS ORDERED: TORSEMIDE 10 MG TAB PO SCH (09:30)
--- NOTE | 2018-08-05 11:04 | Pharmacy Report ---
Pharmacy Glycemic Short Note 2 - Date of Service August 05, 2018 - Glycemic Short BSG Results (Last 24 hours): 08/04/18 08/04/18 08/04/18 11:33 16:50 20:02 Glucose POC Glucose 242 H 217 H 202 H 08/05/18 08/05/18 07:24 07:38 Glucose 75 POC Glucose 83 OUTPATIENT ANTIDIABETIC REGIMEN: * Lantus 52 units HS * Humalog 7 units with breakfast, 14 units with lunch, 14 units with dinner ASSESSMENT: * Patient received total of 90 units of insulin yesterday; 40 units of which was basal, 50 units correction + prandial. * Fasting BSG= 83; will continue basal Lantus at 40 units HS. * Novolog carb ratio was changed to 4 with dinner yesterday, BSG went down from 217 to 202 at HS yesterday. Will continue same parameters and check lunch BSG * Patient with PAM in addition to CKD stage 4; Scr = 3.8 today. He may not be renally clearing enough insulin. PLAN FOR INPATIENT GLYCEMIC CONTROL: * Basal insulin: continue * Lantus 40 units SQ HS * Bolus insulin: continue * NovoLog per scale ACHS or Q6hrs while NPO * Goal Range: Low 110 mg/dL - High 140 mg/dL * Correction Factor: 15 mg/dL/unit * Nutritional / Prandial insulin per carb ratio of 1 unit per 4 grams CHO consumed PLAN FOR DISCHARGE: * HbA1c = 9.4% on 08/03/18. This indicates poorly controlled diabetes as an outpatient. * See CDE note. * Recommend continue on Lantus and Humalog with dose adjustments based on SMBG and food intake; and close follow up by out-patient PCP/plasma specialist.
--- NOTE | 2018-08-05 13:01 | Hospitalist Progress Note ---
Date of Service August 05, 2018 Assessment & Plan (1) CHF (congestive heart failure): Acute on chronic combined systolic and diastolic CHF Volume Overload - Presented with worsening SOB, leg swelling and weight gain CXR:Moderate cardiomegaly. The lungs are clear. Venous Doppler:There is no sonographic evidence of deep venous thrombosis identified in the right or left lower extremity. Abdominal distention: Abdomen US: No ascites AICD Interrogated ECHO: EF: 45-50%, borderline global hypokinesis of the left ventricle, moderate concentric LVH, Moderate to sever , Trace MR on this admission from 08/01/18 patient had been on Lasix 60 mg IV BID but Lasix discontinued on 08/04/18 due to worsening renal function and given small bolus of normal saline 250 cc creatinine improved to 3.88 on 08/05/18 oral torsemide 20 mg given, patient prescribed torsemide 10 mg daily for Thursday/Thursday//Thursday outpatient follow up for renal function repeat tests continue fluid restriction 1500 cc with low sodium and diabetes diet even as outpatient PAM on CKD IV: Baseline Cr2.6 to 3.0 Cr:4.44 on 08/04/18 on this admission from 08/01/18 patient had been on Lasix 60 mg IV BID but Lasix discontinued on 08/04/18 due to worsening renal function and given small bolus of normal saline 250 cc creatinine improved to 3.88 on 08/05/18 oral torsemide 20 mg given, patient prescribed torsemide 10 mg daily for Thursday/Thursday//Thursday outpatient follow up for renal function repeat tests H/O COPD/ARPIT/pulmonary hypertension Patient awaiting scheduled sleep study as outpatient Continue home inhalers on room air Chronic LBBB History nonocclusive CAD H/O ischemic Cardiomyopathy has ICD Continue current meds Hypertension Continue Hydralazine, Metoprolol continue Imdur No VENKATA/ARB due to CKD also have torsemide for blood pressure control A. fib on Coumadin Paced rhythm Moderate aortic stenosis on recent TTE Continue Metoprolol Monitor INR: 1.7, increase coumadin 6 mg daily and 10 day supply was prescribed follow up with coumadin clinic as outpatient scheduled Thrombocytopenia: Chronic stable Chronic anemia Hb stable Type 2 diabetes mellitus on assisted 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 insulin with hyperglycemia current HbA1C:9.4 Hold home regimen blood sugar above 400 on 08/03/18 since that time the blood sugars better controlled with pharmacy glycemic management with insulin, patient can resume home dose insulin and follow up with primary care doctor DVT Px: Coumadin Code Status Full code Discharge Diagnosis acute on chronic combined systolic and diastolic congestive heart failure, chronic kidney disease stage IV, Acute kidney injury, atrial fibrillation, on coumadin, essential hypertension, Type 2 diabetes mellitus on assisted 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 insulin with hyperglycemia Discharge to home Patient have prescriptions of torsemide 10 mg daily for Thursday/Thursday// Thursday Patient have prescription for warfarin 6 mg daily and follow up to get INR check on 08/09/2018 10:00 AM Provider Lab [facility] [place], [facility] 08/10/2018 7:00 AM Provider [facility] Department Pharmacy, [facility] 08/11/2018 1:00 PM Provider Mirlande Pickett MD Department Internal Medicine [facility] 08/11/2018 6:20 PM Provider [facility] Department Pharmacy, [facility] 08/16/2018 10:20 AM Provider Mirlande Pickett MD Department Internal Medicine [facility] 08/18/2018 10:30 AM Provider [employer] Department Cardiology, [facility] 08/19/2018 3:00 PM Provider Billy Chery PA-C Department Cardiology, [facility] 10/01/2018 11:20 AM Provider Kathleen Bosch MD Department Nephrology, [facility] 10/14/2018 11:20 AM [facility] Call 911 and go to the Emergency Room if: * You have tightness or pain in your chest that does not go away with rest or Nitroglycerin * You are very short of breath even with rest Call your doctor if any of the following symptoms or problems start or get worse: * Shortness of breath or difficulty breathing * Wake up at night short of breath * Chest pain * Cough * Swelling of your hands, fee, or legs * More fatigued or tired with your normal activity * Palpitations - sudden fast heart beats WEIGHT * Weigh yourself every morning after using the bathroom. * Use the same scale. * Wear the same amount of clothing. * Write your weight down on your chart. * Call your doctor if you gain more than 2-3 pounds in 1-2 days. MEDICATIONS * Use this discharge instruction sheet for instructions. * Take your medications at the time your doctor ordered. * Do not skip a dose of your medicines. * If you miss a dose of medicine, take as soon as possible, but DO NOT DOUBLE A DOSE. * Read your medicine information when you get home. * Know all of the side effects of your medicine. * Call your doctor's office if you have any side effects. * Be sure all of your doctors know what medicine and herbs you take (including cold, flu, and herbal medicine). * Pain Medicine: If you do not get relief from your pain, please call your doctor for help. Take the following with you to your follow-up doctor appointments: * Weight Chart * Medication List * List of questions Do not drink excessive alcohol, beer or wine. Subjective breathing on room air, no shortness of breath. legs without edema. no abdominal pain. no vomiting. no headache. no dizziness. we discussed at length about hospital discharge plans and follow ups Physical Exam Constitutional: WD/WN, vitals as above Eyes: PERRL, conjunctivae normal, anicteric sclerae EOM intact bilaterally ENMT: external ear and nose normal, oropharynx normal Neck: trachea midline, no thyromegaly Respiratory: normal respiratory effort, lungs clear to auscultation Cardiovascular: Rate/Rhythm: regular rate and regular rhythm Gastrointestinal (Abdomen): normal bowel sounds, soft, nontender, no hepatosplenomegaly Musculoskeletal: Head/Neck/Chest: normocephalic and head atraumatic Neurologic: PERRL, EOMI, accommodation nl, no face palsy, no dysarthria CN's II-XI intact bilaterally Psychiatric: A+Ox3, euthymic affect Results & Data Vital Signs (Past 12 Hours) Vital Signs Temp Pulse Pulse Resp BP BP Pulse Ox 08/05/18 12:41 36.6 C 59 L 20 178/100 H 110/58 L 96 08/05/18 12:38 36.6 C 59 L 20 178/100 H 110/58 L 96 08/05/18 11:43 36.6 C 59 L 20 178/100 H 96 08/05/18 11:06 61 16 91 08/05/18 07:35 61 16 91 08/05/18 07:21 36.8 C 61 16 110/58 L 91 08/05/18 07:06 61 08/05/18 04:00 37.1 C 58 L 16 125/66 16 L
--- NOTE | 2018-08-05 13:22 | Discharge Summary ---
Date of Service August 05, 2018 Admission HPI Per Admitting Provider History obtained from patient and records. Medical history significant for chronic systolic/diastolic heart failure secondary to nonischemic cardiomyopathy (EF of 45-50%, TTE 03/2018) status post ICD, chronic LBBB, History nonocclusive CAD, A. fib on Coumadin, aortic stenosis, hypertension, COPD as per records, ARPIT, DM 2 insulin requiring, chronic renal insufficiency (baseline creatinine of 2.6-3), chronic anemia (baseline hemoglobin of 11-12), chronic thrombocytopenia Recent confinement last April 2018 for dizziness secondary to orthostatic hypotension. Patient noted worsening shortness of breath the last 2 days. Gradually increasing, feels like he is filling up with fluid. Home weight steadily going up despite compliance with diuretic regimen and fluid restriction at home. Denies NSAID intake. Legs and feet swelling up. Left-sided chest pain which patient attributes to abdominal distention not being able to take a deep breath. No cough symptoms. Patient received IV Lasix at the ER. Admission Exam Per Admitting Provider GENERAL: obese, uncomfortable, no respiratory distress SKIN: pallor, warm HEENT: Pale palpebral conjunctivae, no ptosis, dry buccal mucosa NECK : Supple, short neck, no tenderness CHEST : Decreased breath sounds , no tenderness HEART : RRR, systolic ABDOMEN: distention, nontender RECTAL EXAM : intact sphincter, yellow stool, FOBT negative EXTREMITIES : artur LE swelling, no LE tenderness, no other conspicuous deformities noted NEUROLOGIC : Coherent, no facial asymmetry, no other gross focality Principal Diagnosis acute on chronic combined systolic and diastolic congestive heart failure, chronic kidney disease stage IV, Acute kidney injury, atrial fibrillation, on coumadin, essential hypertension, Type 2 diabetes mellitus on intermediate 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 insulin with hyperglycemia Discharge Exam Constitutional WD/WN, vitals as above Eyes PERRL, conjunctivae normal, anicteric sclerae EOM intact bilaterally ENMT external ear and nose normal, oropharynx normal Neck trachea midline, no thyromegaly Respiratory normal respiratory effort, lungs clear to auscultation Cardiovascular Rate/Rhythm: regular rate and regular rhythm Gastrointestinal (Abdomen) normal bowel sounds, soft, nontender, no hepatosplenomegaly Musculoskeletal Head/Neck/Chest: normocephalic and head atraumatic Neurologic PERRL, EOMI, accommodation nl, no face palsy, no dysarthria CN's II-XI intact bilaterally Psychiatric A+Ox3, euthymic affect Discharge Data Allergies Allergy/AdvReac Type Severity Reaction Status Date / Time No Known Allergies Allergy Verified 08/01/18 20:51 Consultations 08/01/18 21:35 ED Decision to Admit Stat 08/01/18 23:30 Consult Cardiology Routine Consult Nephrology Routine Ordered Studies 08/01/18 22:36 US abdomen limited Urgent US venous doppler LE Urgent Hospital Course (1) CHF (congestive heart failure): Acute on chronic combined systolic and diastolic CHF Volume Overload - Presented with worsening SOB, leg swelling and weight gain CXR:Moderate cardiomegaly. The lungs are clear. Venous Doppler:There is no sonographic evidence of deep venous thrombosis identified in the right or left lower extremity. Abdominal distention: Abdomen US: No ascites AICD Interrogated ECHO: EF: 45-50%, borderline global hypokinesis of the left ventricle, moderate concentric LVH, Moderate to sever , Trace MR on this admission from 08/01/18 patient had been on Lasix 60 mg IV BID but Lasix discontinued on 08/04/18 due to worsening renal function and given small bolus of normal saline 250 cc creatinine improved to 3.88 on 08/05/18 oral torsemide 20 mg given, patient prescribed torsemide 10 mg daily for Thursday/Thursday//Thursday outpatient follow up for renal function repeat tests continue fluid restriction 1500 cc with low sodium and diabetes diet even as outpatient PAM on CKD IV: Baseline Cr2.6 to 3.0 Cr:4.44 on 08/04/18 on this admission from 08/01/18 patient had been on Lasix 60 mg IV BID but Lasix discontinued on 08/04/18 due to worsening renal function and given small bolus of normal saline 250 cc creatinine improved to 3.88 on 08/05/18 oral torsemide 20 mg given, patient prescribed torsemide 10 mg daily for Thursday/Thursday//Thursday outpatient follow up for renal function repeat tests H/O COPD/ARPIT/pulmonary hypertension Patient awaiting scheduled sleep study as outpatient Continue home inhalers on room air Chronic LBBB History nonocclusive CAD H/O ischemic Cardiomyopathy has ICD Continue current meds Hypertension Continue Hydralazine, Metoprolol continue Imdur No VENKATA/ARB due to CKD also have torsemide for blood pressure control A. fib on Coumadin Paced rhythm Moderate aortic stenosis on recent TTE Continue Metoprolol Monitor INR: 1.7, increase coumadin 6 mg daily and 10 day supply was prescribed follow up with coumadin clinic as outpatient scheduled Thrombocytopenia: Chronic stable Chronic anemia Hb stable Type 2 diabetes mellitus on intermediate 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 insulin with hyperglycemia current HbA1C:9.4 Hold home regimen blood sugar above 400 on 08/03/18 since that time the blood sugars better controlled with pharmacy glycemic management with insulin, patient can resume home dose insulin and follow up with primary care doctor DVT Px: Coumadin Code Status Full code Discharge Diagnosis acute on chronic combined systolic and diastolic congestive heart failure, chronic kidney disease stage IV, Acute kidney injury, atrial fibrillation, on coumadin, essential hypertension, Type 2 diabetes mellitus on 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 coordinator 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 insulin with hyperglycemia Discharge to home Patient have prescriptions of torsemide 10 mg daily for Thursday/Thursday/T /Thursday Patient have prescription for warfarin 6 mg daily and follow up to get INR check on 08/09/2018 10:00 AM Provider Lab [facility] Department Laboratory, [facility] 08/10/2018 7:00 AM Provider [facility], [facility] 08/11/2018 1:00 PM Provider Mirlande Pickett MD Department Internal Medicine [facility] 08/11/2018 6:20 PM Provider [facility], [facility] 08/16/2018 10:20 AM Provider Mirlande Pickett MD Department Internal Medicine [facility] 08/18/2018 10:30 AM Provider [employer] Department Cardiology, [facility] 08/19/2018 3:00 PM Provider Billy Chery PA-C Department Cardiology, [facility] 10/01/2018 11:20 AM Provider Kathleen Bosch MD Department Nephrology, [facility] 10/14/2018 11:20 AM [facility] Call 911 and go to the Emergency Room if: * You have tightness or pain in your chest that does not go away with rest or Nitroglycerin * You are very short of breath even with rest Call your doctor if any of the following symptoms or problems start or get worse: * Shortness of breath or difficulty breathing * Wake up at night short of breath * Chest pain * Cough * Swelling of your hands, fee, or legs * More fatigued or tired with your normal activity * Palpitations - sudden fast heart beats WEIGHT * Weigh yourself every morning after using the bathroom. * Use the same scale. * Wear the same amount of clothing. * Write your weight down on your chart. * Call your doctor if you gain more than 2-3 pounds in 1-2 days. MEDICATIONS * Use this discharge instruction sheet for instructions. * Take your medications at the time your doctor ordered. * Do not skip a dose of your medicines. * If you miss a dose of medicine, take as soon as possible, but DO NOT DOUBLE A DOSE. * Read your medicine information when you get home. * Know all of the side effects of your medicine. * Call your doctor's office if you have any side effects. * Be sure all of your doctors know what medicine and herbs you take (including cold, flu, and herbal medicine). * Pain Medicine: If you do not get relief from your pain, please call your doctor for help. Take the following with you to your follow-up doctor appointments: * Weight Chart * Medication List * List of questions Do not drink excessive alcohol, beer or wine. Total Time Total Time Spent Total Time Spent (In Minutes): 40 minutes Total Time Includes: Examination of the Patient, Discharge Planning and Medication Reconciliation Discharge Plan Discharge Items Patient Disposition: Home - Self-Care Reason For Visit: CHF Discharge Diagnosis: acute on chronic combined systolic and diastolic congestive heart failure, chronic kidney disease stage IV, Acute kidney injury, atrial fibrillation, on coumadin, essential hypertension, Type 2 diabetes mellitus on intermediate 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 insulin with hyperglycemia Condition: Good Discharge Goals: Improve disease control Activity: Resume your previous activity Non-emergency contact: Primary Care Provider and Specialist Call non-emergency contact if: you have any medication questions Follow-up/Referrals: Mirlande Melton MD [Primary Care Provider] - Diet: Carb Consistent or DM2, Heart Healthy and Low Sodium (2gm) Fluids: 1500ml (6 cups) Addtl Provider Instructions: Discharge to home Patient have prescriptions of torsemide 10 mg daily for Thursday/Thursday//Thursday Patient have prescription for warfarin 6 mg daily and follow up to get INR check on 08/09/2018 10:00 AM Provider Lab [facility] Department Laboratory, [facility] 08/10/2018 7:00 AM Provider [facility], [facility] 08/11/2018 1:00 PM Provider Mirlande Pickett MD Department Internal Medicine [facility] 08/11/2018 6:20 PM Provider [facility] Department Pharmacy, [facility] 08/16/2018 10:20 AM Provider Mirlande Pickett MD Department Internal Medicine [facility] 08/18/2018 10:30 AM Provider [employer] Department Cardiology, [facility] 08/19/2018 3:00 PM Provider Billy Chery PA-C Department Cardiology, [facility] 10/01/2018 11:20 AM Provider Kathleen Bosch MD Department Nephrology, [facility] 10/14/2018 11:20 AM [facility] Call 911 and go to the Emergency Room if: * You have tightness or pain in your chest that does not go away with rest or Nitroglycerin * You are very short of breath even with rest Call your doctor if any of the following symptoms or problems start or get worse: * Shortness of breath or difficulty breathing * Wake up at night short of breath * Chest pain * Cough * Swelling of your hands, fee, or legs * More fatigued or tired with your normal activity * Palpitations - sudden fast heart beats WEIGHT * Weigh yourself every morning after using the bathroom. * Use the same scale. * Wear the same amount of clothing. * Write your weight down on your chart. * Call your doctor if you gain more than 2-3 pounds in 1-2 days. MEDICATIONS * Use this discharge instruction sheet for instructions. * Take your medications at the time your doctor ordered. * Do not skip a dose of your medicines. * If you miss a dose of medicine, take as soon as possible, but DO NOT DOUBLE A DOSE. * Read your medicine information when you get home. * Know all of the side effects of your medicine. * Call your doctor's office if you have any side effects. * Be sure all of your doctors know what medicine and herbs you take (including cold, flu, and herbal medicine). * Pain Medicine: If you do not get relief from your pain, please call your doctor for help. Take the following with you to your follow-up doctor appointments: * Weight Chart * Medication List * List of questions Do not drink excessive alcohol, beer or wine. Prescriptions: New torsemide 10 mg Tablet 10 mg PO UD 30 Days Qty: 30 RF: 0 warfarin [Coumadin] 6 mg Tablet 6 mg PO DAILY@1600 10 Days Qty: 10 RF: 0 Continued isosorbide dinitrate 10 mg Tablet 20 mg PO TID RF: 0 metoprolol succinate [Toprol XL] 100 mg Tablet Extended Release 24 Hr 100 mg PO DAILY RF: 0 aspirin 81 mg Tablet,Delayed Release (Dr/Ec) 81 mg PO DAILY RF: 0 pantoprazole [Protonix] 40 mg Tablet,Delayed Release (Dr/Ec) 40 mg PO DAILY RF: 0 insulin lispro [Humalog KwikPen Insulin] 100 unit/mL Insulin Pen 7 units SUBCUT QAM RF: 0 insulin lispro [Humalog KwikPen Insulin] 100 unit/mL Insulin Pen 14 unit SUBCUT BID RF: 0 rosuvastatin [Crestor] 40 mg Tablet 40 mg PO HS RF: 0 Lantus Solostar U-100 Insulin 100 unit/mL (3 mL) Insulin Pen 52 units SUBCUT HS RF: 0 cholecalciferol (vitamin D3) [Vitamin D3] 2,000 unit Capsule 2,000 unit PO DAILY RF: 0 hydralazine 25 mg tablet 25 mg PO TID RF: 0 gabapentin 100 mg Capsule 100 mg PO TID RF: 0 ipratropium-albuterol 0.5 mg-3 mg(2.5 mg base)/3 mL Solution For Nebulization 3 ml INHALATION QID RF: 0 albuterol sulfate [ProAir HFA] 90 mcg/actuation Hfa Aerosol Inhaler 2 puff INHALATION Q4 PRN (Reason: Shortness Of Breath Or Wheezing) RF: 0 fluticasone propionate [Flonase Allergy Relief] 50 mcg/actuation [place],Suspension 2 spray INTRANASAL DAILY PRN (Reason: Nasal Congestion) RF: 0 Breo Ellipta 100-25 mcg/dose Blister With Device 1 inh INHALATION DAILY RF: 0 Discontinued torsemide 20 mg tablet See Rx Instructions .ROUTE .COMPLEX Qty: 0 RF: 0 warfarin 5 mg tablet 5 mg PO DAILY RF: 0 Stand-Alone Forms: [facility] Discharge Orders: Discharge Order (Routine); Ordered 08/05/18 Ordered By: Richard Larkin Admission Data Admit Date/Time: 08/01/18 22:40 Attending Provider: Richard Larkin Admit Provider: Aj Ames Primary Care Provider: Mirlande Melton Other Providers: Claudio Vazquez ; Pillo Graves ; Kathleen Bosch Service: Telemetry Medical Other Interventions: Discharge Summary Assessment (RN) Last Done: 08/05/18 12:41
--- NOTE | 2018-08-05 14:11 | Nephrology Progress Note ---
Date of Service August 05, 2018 Assessment & Plan (1) Acute renal failure superimposed on stage 4 chronic kidney disease: CKD 4 w/ baseline creatinine 2.6-3.0 01/2018-06/2018; at his OP baseline though at upper limit of it on presentation 08/01; now on 08/03 w/ PAM on CKD >> creat peaked on 08/05 at 4.4 and to 3.8 today -diuretics on hold again today > cont other fluid mgt strategies as below -agree w/ torsemide 20 mg po q 48 hrs -admission ua remarkable for known proteinuria and recurrent /intermittent glucosuria suggestive here of tubular dysfunction -daily bmp -agree that worsened anemia may well be dilutional but important to monitor for other causes; inr 1.5 >>IF staying in house will cont to follow; if for d/c, recommend check bmp weekly x 3 wks; keep 10/02 f/u appt w/ me; sooner if OP labs unstable (2) Fluid overload: -torsemide as above -for now cont hydralazine as rx'd; may need to reduce if bp lability becomes an issues >> follow these measures below as OP -cont FR 1.5L - <2 gm daily Na diet >>>>daily STANDING wts pls and strict I/O Subjective seen on round sthis am at about 0710. no c/o sob worsening, no voiding c/o, no n/v, + fatigue; + wheeze relieved by breathing txs; no paliptations/chest pain; ongoing intermittent blurred vision; diuretics on hold Review of Systems Review of Systems: All systems reviewed & are unremarkable except as noted in HPI & below Physical Exam Constitutional: well developed and well nourished; no acute distress sitting in bed getting breathing tx Eyes: EOM intact bilaterally ENMT: Ears: no external ear abnormality Nose: no external nose abnormality Mouth: + dry oral mucous membranes Neck: no nuchal rigidity Respiratory: normal respiratory effort Auscultation: + diminished lung sounds Cardiovascular: Rate/Rhythm: regular rate and regular rhythm Heart Sounds: + murmur Extremities: no edema Gastrointestinal (Abdomen): Inspection/Auscultation: normal bowel sounds Percussion/Palpation: abdomen soft; abdomen nontender Musculoskeletal: Extremities: strength 5/5 throughout Skin: no rashes, warm and dry Neurologic: mathew, fluent speech Results & Data Vital Signs (Past 12 Hours) Vital Signs Temp Pulse Pulse Resp BP BP Pulse Ox 08/05/18 12:41 36.6 C 59 L 20 178/100 H 110/58 L 96 08/05/18 12:38 36.6 C 59 L 20 178/100 H 110/58 L 96 08/05/18 11:43 36.6 C 59 L 20 178/100 H 96 08/05/18 11:06 61 16 91 08/05/18 07:35 61 16 91 08/05/18 07:21 36.8 C 61 16 110/58 L 91 08/05/18 07:06 61 08/05/18 04:00 37.1 C 58 L 16 125/66 16 L Laboratory Results Abnormal lab results 08/04/18 08/04/18 08/04/18 Range/Units 11:33 16:50 20:02 PT (9.0-12.0) Seconds INR (0.9-1.1) BUN (7-18) mg/dl Creatinine (0.6-1.4) mg/dl POC Glucose 242 H 217 H 202 H (70-99) 08/05/18 08/05/18 08/05/18 Range/Units 07:24 07:24 12:01 PT 16.5 H (9.0-12.0) Seconds INR 1.7 H (0.9-1.1) BUN 62 H (7-18) mg/dl Creatinine 3.82 H D (0.6-1.4) mg/dl POC Glucose 286 H (70-99) (1) Acute renal failure superimposed on stage 4 chronic kidney disease Acute renal failure type: unspecified Qualified Code(s): N17.9 - Acute kidney failure, unspecified; N18.4 - Chronic kidney disease, stage 4 (severe) (2) Fluid overload Hypervolemia type: unspecified Qualified Code(s): E87.70 - Fluid overload, unspecified
[2018-08-05] MEDS ORDERED: INSULIN GLARGINE SOLOSTAR 100 UNITS/ML 3 ML PEN SC SCH ×2 (14:30→15:30)
[2018-08-05] MEDS ORDERED: WARFARIN SOD 6 MG TAB PO SCH (16:00)
== END 2018-08-05 13:30 | disposition home or self-care (01) | DRG 291 ==
LOC: ED 19:04 → 2N 22:40 → SUATTDRO 22:40 → 2N 23:09

== ENCOUNTER 2018-10-03 19:33 | Inpatient (IN) ==
[2018-10-03] MEDS ORDERED: NITROGLYCERIN 2% OINTMENT 30GM TUBE EXT STA (20:11)
[2018-10-03 20:39] LABS: Basophils # (auto) 0.01 K/uL (0-0.2); Basophils % (auto) 0.2 %; Eosinophils # (auto) 0.09 K/uL (0-0.5); Eosinophils % (auto) 1.9 %; Hematocrit (blood only) 31.8 % (42-52); Hemoglobin 9.9 g/dL (14.0-18.0); Immature Granulocytes # (auto) 0.01 K/uL (0.00-0.02); Immature Granulocytes % (auto) 0.2 %; Lymphocytes # (auto) 0.68 K/uL (1.2-3.4); Lymphocytes % (auto) 14.3 %; Mean Corpuscular Hgb Conc 31.1 g/dL (32-36); Mean Corpuscular Volume 77.6 fL (80-100); Mean Platelet Volume 9.7 fL (7.4-10.4); Monocytes # (auto) 0.42 K/uL (0.11-0.59); Monocytes % (auto) 8.8 %; Neutrophils # (auto) 3.55 K/uL (1.4-6.5); Neutrophils % (auto) 74.6 %; Platelet Count 123 K/uL (130-400); RDW Coefficient of Variation 14.4 % (11.5-14.5); White Blood Count 4.76 K/uL (4.8-10.8)
--- NOTE | 2018-10-03 20:41 | XRay Report ---
XR chest 1V portable CLINICAL HISTORY: Shortness of breath and chest pain. COMPARISON STUDY: Chest CT May 15, 2018. Chest radiograph August 01, 2018. FINDINGS: A left subclavian biventricular pacer/AICD is in place. There is no pneumothorax or pleural effusion. There is no evidence for pulmonary edema. Cardiomegaly is unchanged. There is possible mil d right infrahilar opacity. IMPRESSION: 1. Cardiomegaly without evidence for pulmonary edema. 2. Possible mild right infrahilar opacity. Electronically signed by: Balwinder Juarez M.D. 10/03/2018 8:39 PM
[2018-10-03 20:56] LABS: Albumin Level 3.7 gm/dl (3.4-5.0); BUN Creatinine Ratio 12.5 (10-20); Calcium 8.6 mg/dl (8.5-10.1); Creatinine Clr Calc Pharmacy 30.6 ml/min; Est GFR (African American) 24.2; Est GFR (Non-African American) 20.9; Magnesium 2.2 mg/dl (1.8-2.4); Potassium 4.2 mmol/L (3.5-5.1)
[2018-10-03 21:04] LABS: Albumin Globulin Ratio 1.1 (0.9-2); Bilirubin,Total 0.7 mg/dl (0.2-1); Globulin 3.5 gm/dl (2.5-4.0); Total Protein 7.2 gm/dl (6.4-8.2); Troponin I 0.048 ng/ml (0-0.045)
[2018-10-03] MEDS ORDERED: cefTRIAXone SODIUM 1,000 MG/50 ML BAG IV STA (21:18)
[2018-10-03] MEDS ORDERED: AZITHROMYCIN 250 MG TAB PO ONE (21:18)
[2018-10-03 21:22] LABS: Ovalocytes 1+
[2018-10-03 21:34] LABS: INR 2.4 (0.9-1.1); Prothrombin Time 23.4 Seconds (9.0-12.0)
[2018-10-03] MEDS ORDERED: FUROSEMIDE 40 MG/4 ML VIAL IV STA (23:20)
[2018-10-03] MEDS ORDERED: ONDANSETRON INJ 2 MG/ML 2 ML VIAL IV PRN (23:20)
[2018-10-03] MEDS ORDERED: FLUTICASONE PROPIONATE NA SPR 16 GM BTL PRN (23:20)
[2018-10-03] MEDS ORDERED: NITROGLYCERIN SL 0.4 MG/TAB TAB SL PRN (23:20)
[2018-10-03] MEDS ORDERED: ALBUT/IPRATROP 3MG/0.5MG NEB 3 ML VIAL INH PRN (23:20)
[2018-10-03] MEDS ORDERED: ALBUTEROL HFA 8 GM INHALER INH PRN (23:20)
[2018-10-03] MEDS ORDERED: ACETAMINOPHEN 325 MG TAB PO PRN (23:20)
[2018-10-03] MEDS ORDERED: DEXTROSE 50% 50 ML SYRINGE IV PRN (23:45)
[2018-10-03] MEDS ORDERED: CARBOHYDRATES FOR HYPOGLYCEMIA PO PRN (23:45)
[2018-10-03] MEDS ORDERED: GLUCAGON FOR INJ 1 MG VIAL IM PRN (23:45)
[2018-10-03] MEDS ORDERED: GLUCOSE 10 TABS/TUBE PO PRN (23:45)
[2018-10-03] MEDS ORDERED: GLUCOSE 40% GEL 15 GM TUBE PO PRN (23:45)
[2018-10-04] MEDS: INSULIN ASPART 100 UNITS/ML 3 ML PEN SC SCH ×5 (00:56→20:07)
[2018-10-04] MEDS: INSULIN GLARGINE SOLOSTAR 100 UNITS/ML 3 ML PEN SQ SCH ×2 (00:56→20:07)
--- NOTE | 2018-10-04 02:55 | History and Physical Report ---
DATE OF ADMISSION: 10/03/2018 CHIEF COMPLAINT: Shortness of breath. HISTORY OF PRESENT ILLNESS: This is a 63-year-old male with past medical history significant for chronic systolic and diastolic heart failure with EF of 45-50% previously as low as 30%, chronic left bundle branch block, status post biventricular pacemaker and defibrillator implantation in June of 2017. Moderate CAD by catheterization in June 2016, moderate aortic wall stenosis, atrial fibrillation on chronic Coumadin anticoagulation, stage IV chronic kidney disease. Baseline creatinine around 2.6 to 3. Hypertension, status post adrenalectomy at [facility]; hyperlipidemia; anemia of chronic kidney disease; chronic thrombocytopenia; COPD; sleep apnea; pulmonary hypertension; type 2 diabetes; history of pulmonary nodules, presents with shortness of breath. The patient is currently on torsemide 10 mg daily for 4 times a week. He says he gained about 3-4 pounds in last 1-2 days getting short of breath on exertion. He can walk 50 yards before he gets short of breath. He also complains of claudication pain of right calf pain when he is ambulating. Denies any cough, no fever, no chills. Has some chest pain earlier in the day but right now there is no chest pain, no headaches, no dizziness, no blurred vision, no earache, no runny nose, no sore throat, no difficulty swallowing. Appetite is okay. Orthopnea present. No swelling in the legs. No rash. No nausea, no abdominal pain. Normal bowel and bladder movements. No black stools or hematuria. Currently resting comfortably and hemodynamically stable and saturating okay on room air. He says he had sleep study and recommended to have CPAP but he could not tolerate CPAP and used to use 2 liters of oxygen at nighttime and lately is using 3 liters while sleeping. ALLERGIES: No known drug allergies. PAST MEDICAL HISTORY: As mentioned above. PAST SURGICAL HISTORY: Cardiac catheterization, lumbar cervical spine injection, status post biventricular pacemaker and defibrillator, skin cancer behind the left ear, status post adrenalectomy. MEDICATIONS: The patient is on torsemide 10 mg p.o. 4 times a week, Protonix 40 mg p.o. daily, Coumadin 5 mg as directed, Breo Ellipta 1 puff daily, hydralazine 25 mg p.o. t.i.d., Humalog t.i.d., Lantus 50 units daily, gabapentin 100 mg p.o. t.i.d., Isordil 20 mg p.o. t.i.d., Crestor 40 mg p.o. daily, Flonase 2 sprays into each nostril daily, Toprol-XL 100 mg p.o. daily, DuoNeb 4 times a day p.r.n., albuterol 2 puffs every 4 hours p.r.n., oxygen 2-3 liters at bedtime, vitamin D 2000 units p.o. daily and aspirin 81 mg p.o. daily. FAMILY HISTORY: Significant for mother had heart disorder. Brother has lung cancer, diabetes. Sister has lung cancer. SOCIAL HISTORY: and lives with his . he chews tobacco. No smoking history. Alcohol rare. No drug use. Ambulates without any help. REVIEW OF SYMPTOMS: As per HPI. Rest of review of symptoms negative. PHYSICAL EXAMINATION: GENERAL: The patient is of moderate build, not in acute distress. VITAL SIGNS: Temperature 36.7, pulse 61, respiratory rate 20, blood pressure 164/97, oxygen 97% room air. HEENT: No pallor, no icterus. Pupils equal, round, reactive to light. NECK: No JVD, no neck masses, no carotid bruit. CARDIOVASCULAR: S1, S2 heard, regular rate and rhythm. Ejection systolic murmur in aortic area. RESPIRATORY SYSTEM: Normal AP diameter. No accessory muscle use. Mild occasional expiratory wheezing. No crackles. ABDOMEN: Bowel sounds present. Nontender. No distention. CENTRAL NERVOUS SYSTEM: Cranial nerves II-XII are grossly intact. Nonfocal. EXTREMITIES: No edema, no erythema. LABORATORY DATA: WBC is 4.7, hemoglobin 9.9, hematocrit 31.8 and platelets 123. PT 23.4 and INR 2.4. Sodium 140, potassium 4.2, chloride 105, bicarbonate 29, BUN 38, creatinine 3.01. Serum glucose 250, calcium 8.6, magnesium 2.2, total bilirubin 0.7, AST 24, ALT 29, alkaline phosphatase 73, troponin I less than 0.048. BNP 7000's. Chest x-ray, cardiomegaly without evidence of pulmonary edema, possible mild right infrahilar opacity. EKG shows AV dual paced rhythm with rate of 60. ASSESSMENT AND PLAN: This is a 63-year-old male who presents with shortness of breath. 1. Shortness of breath. Possible acute on chronic systolic and diastolic congestive heart failure, history of moderate aortic stenosis, also chronic kidney disease stage IV playing a role. Has obstructive sleep apnea but not tolerating continuous positive airway pressure at night, uses 3 liters of oxygen at nighttime. The patient saturating okay in the room air. Chest x-ray looks fine, but he has mild occasional wheezing on exam. No lower extremity edema, but says gained weight 3-4 pounds in couple of days. He says he is compliant with salt intake, he is on 1.5 liters fluid restriction , but occasionally drinks more than that. We will continue his torsemide 10 mg p.o. 4 times a week and we will give 1 dose of IV Lasix 40 and follow the response and monitor him and consult Cardiology and Nephrology to help with diuretics Further recommendation as per Cardiology. 2. Chronic kidney disease stage IV: Baseline creatinine 2.6 to 3. Presented with creatinine of 3.01. We will give IV Lasix. We will follow the labs. The patient is supposed to follow Nephrology. We will consult Nephrology while the patient is in the hospital. 3. History of mild chronic obstructive pulmonary disease, obstructive sleep apnea and pulmonary hypertension: The patient is not tolerating continuous positive airway pressure, uses oxygen at nighttime. Continue home inhalers. Mild occasional wheezing. We will monitor. 4. Chronic left bundle branch block, history of nonocclusive coronary artery disease.Non ischemic cardiomyopathy, status post biventricular pacemaker and ICD, currently we will continue current medications. 6. History of hypertension, on hydralazine, Toprol-XL, Imdur on diuretics. We will monitor the blood pressure. 7. History of atrial fibrillation on Coumadin, paced rhythm on EKG, status post biventricular pacemaker and defibrillator. INR is therapeutic. Continue his Toprol-XL. Follow INR. 8. History of , needs followup 9. History of anemia of chronic disease. Hemoglobin is 9.9. We will monitor. 10. History of type 2 diabetes. We will continue home Lantus 50 units at bedtime and insulin sliding scale. We will monitor the blood sugar. We will follow the HbA1c levels. 11. Deep venous thrombosis prophylaxis, on Coumadin. INR therapeutic. DISPOSITION: Admit to tele floor. Expect to discharge him and follow with family doctor. PT and OT prior to discharge. Social Service to help with discharge planning. Level 1 full code. BRETTD
[2018-10-04 06:32] LABS: Estimated Average Glucose 246 mg/dl; Hemoglobin A1C 10.2 % (4.5-5.6)
--- NOTE | 2018-10-04 06:49 | Ultrasound Report ---
US arterial duplex LE BI CLINICAL HISTORY: 63 years-old Male presenting with pvd?. TECHNIQUE: Real-time grayscale and color and spectral Doppler ultrasound imaging of the bilateral low er extremities arteries was performed. Measurements based on NASCET criteria. COMPARISON: 04/14/2018. FINDINGS: RIGHT: Common femoral artery: Patent. Triphasic waveforms. Peak systolic velocity (PSV) 81 cm/s. Deep femoral artery: Patent. Triphasic waveforms. PSV 42 cm/s. Superficial femoral artery: Patent. Triphasic waveforms. PSV 74-85 cm/s. Popliteal artery: Patent. Triphasic waveforms. PSV 45-60 cm/s. Anterior tibial artery: Patent. Monophasic waveforms. PSV 65-84 cm/s. Posterior tibial artery: Patent. Monophasic waveforms. PSV 66-97 cm/s. Peroneal artery: Patent. Monophasic waveforms. PSV 33-51 cm/s. Dorsalis pedis: Patent. Monophasic waveforms. PSV 112 cm/s. LEFT: Common femoral artery: Patent. Triphasic waveforms. Peak systolic velocity (PSV) 71 cm/s. Deep femoral artery: Patent. Triphasic waveforms. PSV 41 cm/s. Superficial femoral artery: Patent. Triphasic waveforms. PSV 91-97 cm/s. Popliteal artery: Patent. Triphasic waveforms. PSV 61-70 cm/s. Anterior tibial artery: Patent. Triphasic waveforms. PSV 57-91 cm/s. Posterior tibial artery: Patent. Triphasic waveforms. PSV 67-139 cm/s. The elevated velocity of 139 c m/s in the mid portion in comparison to the proximal velocity of 67 cm/s this suggest stenosis. Peroneal artery: Patent. Triphasic waveforms. PSV 36-77 cm/s. Dorsalis pedis: Patent. Monophasic waveforms. PSV 212 cm/s, which represents significant elevated bryan ocity. ANKLE/BRACHIAL INDEX (MCKENNA): Brachial: Right: 152 mmHg. Left: 149 mmHg. Ankle (posterior tibial): Right: Not calculable. Left: Not calculable. Ankle (dorsalis pedis): Right: Not calculable. Left: Not calculable. Digit: Right: 107 mmHg. Left: 117 mmHg. Toe/brachial index: Right: 0.7, Left: 0.77. Reference ranges: Normal Ankle/Brachial Index (MCKENNA) 1.0-1.4; 0.91-0.99 borderline; < or = 0.9 abnormal (0.7-0.89 mild, 0.51-0.69 moderate, < or = 0.5 severe peripheral arterial disease). Normal Toe/Brachial Index (TBI) > or = 0.6; < 0.6 abnormal (0.34-0.59 mild, 0.12-0.34 moderate, < or = 0.11 severe peripheral arterial disease). IMPRESSION: 1. Hemodynamically significant stenosis suspected in the proximal to midportion of the left posterio r tibial artery. 2. Hemodynamically significant stenosis in the left dorsalis pedis artery. 3. Normal toe brachial indices bilaterally. Electronically signed by: Pino Hood M.D. 10/04/2018 6:47 AM
[2018-10-04 06:51] LABS: INR 2.4 (0.9-1.1); Prothrombin Time 23.5 Seconds (9.0-12.0)
[2018-10-04 06:56] LABS: BUN Creatinine Ratio 12.2 (10-20); Calcium 8.7 mg/dl (8.5-10.1); Creatinine Clr Calc Pharmacy 30.4 ml/min; Est GFR (African American) 23.7; Est GFR (Non-African American) 20.5; Magnesium 2.3 mg/dl (1.8-2.4); Potassium 3.6 mmol/L (3.5-5.1)
[2018-10-04 08:10] LABS: Basophils # (auto) 0.01 K/uL (0-0.2); Basophils % (auto) 0.2 %; Eosinophils # (auto) 0.11 K/uL (0-0.5); Eosinophils % (auto) 2.2 %; Hematocrit (blood only) 31.4 % (42-52); Hemoglobin 9.8 g/dL (14.0-18.0); Immature Granulocytes # (auto) 0.01 K/uL (0.00-0.02); Immature Granulocytes % (auto) 0.2 %; Lymphocytes # (auto) 0.83 K/uL (1.2-3.4); Mean Corpuscular Hgb Conc 31.2 g/dL (32-36); Mean Corpuscular Volume 78.1 fL (80-100); Monocytes % (auto) 10.2 %; Neutrophils # (auto) 3.43 K/uL (1.4-6.5); Neutrophils % (auto) 70.2 %; Platelet Count 125 K/uL (130-400); RDW Coefficient of Variation 14.6 % (11.5-14.5); RDW Standard Deviation 41.6 fL (36.4-46.3); Red Blood Count 4.02 M/uL (4.7-6.1); White Blood Count 4.89 K/uL (4.8-10.8)
--- NOTE | 2018-10-04 08:12 | Nephrology Consultation ---
Date of Consultation October 04, 2018 Assessment & Plan (1) CKD (chronic kidney disease) stage 4, GFR 15-29 ml/min: since april, his creatinine has run 2.8-3.4, w/ progressive chronic renal renal failure and often quite labile function. currently at 3.1, so within baseline. his chemistries are acceptable; bp is controlled today though last evening it was elevated; he has at least mild volume overload and moderate/ stable anemia (as of last evening). His urine consistently has glucosuria and proteinuria from his uncontrolled DM; no evidence of infection or GN. -continue OP BP meds and monitor BP -daily bmp -agree w/ current lasix dosing and hold torsemide -will need OP f/u for PAD Present on Admission?: Yes (2) Fluid overload: -admission weight 119.9; already down 1 kg; goal wt for d/c would be somewhere in range of 116 kg; need to take care as pt tends to have orthostatic hypontension/ dizziness -agree w/ lasix IV bid17 at 20 mg for now -pls ensure <2 gm daily Na diet and 1.5L FR Present on Admission?: Yes History of Present Illness Reason for Consultation: CKD 4, labile creatinine Requesting Physician: Dr Desai Attending Physician: Richard Larkin MD History of Present Illness 63 y/o whom I'm asked to follow for optimization of advanced CKD was admitted overnight for worsening dyspnea w/ concern for acute on chronic combined systolic/diastolic HF. 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 Pt gained 3-4 lb in the 48 hrs before admission and with more exertional dyspnea. He takes torsemide 3-4 times weekly. he had recently been on a 10 day course of daily torsemide but then back to 4doses/wk. His CXR is clear; satting well on RA; he did have a dose of lasix 40 mg IV x 1 ON. He weighed 119.9 (standing scale ) on admission > 118.9 today. His renal function is unchanged this am. c/o ongoing but improved dyspnea Allergies Allergy/AdvReac Type Severity Reaction Status Date / Time No Known Allergies Allergy Verified 10/03/18 21:11 Home Medications Home Medications Medication Instructions Recorded Confirmed Type Lantus Solostar U-100 Insulin 50 units SUBCUT HS 02/05/18 10/03/18 History aspirin 81 mg PO DAILY 02/05/18 10/03/18 History cholecalciferol (vitamin D3) 2,000 unit PO DAILY 02/05/18 10/03/18 History [Vitamin D3] insulin lispro [Humalog KwikPen 7 units SUBCUT TIDM 02/05/18 10/03/18 History Insulin] isosorbide dinitrate 20 mg PO TIDM 02/05/18 10/03/18 History metoprolol succinate [Toprol XL] 100 mg PO DAILY 02/05/18 10/03/18 History pantoprazole [Protonix] 40 mg PO DAILY 02/05/18 10/03/18 History rosuvastatin [Crestor] 40 mg PO HS 02/05/18 10/03/18 History gabapentin 100 mg PO TIDM 05/14/18 10/03/18 History hydralazine 25 mg PO TIDM 05/20/18 10/03/18 History Breo Ellipta 1 inh INHALATION DAILY 08/01/18 10/03/18 History albuterol sulfate [ProAir HFA] 2 puff INHALATION Q4H PRN 08/01/18 10/03/18 History fluticasone propionate [Flonase 2 spray INTRANASAL DAILY PRN 08/01/18 10/03/18 History Allergy Relief] ipratropium-albuterol 3 ml INHALATION QID PRN 08/01/18 10/03/18 History torsemide 10 mg PO 4XWK 10/03/18 10/03/18 History warfarin 5 mg PO DAILY 10/03/18 10/03/18 History Patient History Medical History Diabetic neuropathy (Chronic) Chronic systolic (congestive) heart failure (Chronic) Aortic stenosis (Chronic) Nocturnal hypoxia (Chronic) on 2L NC O2 HS GERD (gastroesophageal reflux disease) (Chronic) Thrombocytopenia (Chronic) Chronic anemia (Chronic) Asthma (Chronic) DM type 2 (diabetes mellitus, type 2) (Chronic) Dyslipidemia (Chronic) Hypertension (Chronic) CAD (coronary artery disease) (Chronic) "nonobstructive" Nonischemic cardiomyopathy (Chronic) "EF 40-45% with mod on 02/04" LBBB (left bundle branch block) (Chronic) Atrial fibrillation (Chronic) on chronic anticoagulation Surgical History H/O cardiac catheterization (Chronic) Non nonobstructive CAD on 2017 cardiac cath Presence of combination internal cardiac defibrillator (ICD) and pacemaker (Chronic) Family History Other Diabetes Hypertension Lung cancer Social History Preferred Language: Congolese Communication Ability: Effective Visual Impairment: Limited Sales Supervisor Required: No Beliefs That Will Affect Care: None marital status: Current Living Situation: Family current occupational status: retired 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 Other Information That Helps Us Care for You: No Feels Safe at Home: Yes Safety Concerns: Feels Safe At This Time Smoking Status: Unknown if ever smoked Hx Alcohol Use: No Hx Substance Use: No Review of Systems Review of Systems: All systems reviewed & are unremarkable except as noted in HPI & below Constitutional: + fatigue and + weakness Eyes: no worsening vision Ear, Nose, Mouth, Throat: no dry mouth Respiratory: as per Subjective / HPI, + dyspnea and + dyspnea on exertion; no cough and no pain on inspiration Cardiovascular: + dyspnea on exertion, + lightheadedness and + edema; no palpitations Gastrointestinal: no abdominal pain, no vomiting and no change in bowel habits Genitourinary: + nocturia (stable x 4); no dysuria, no difficulty urinating, no urinary frequency and no urinary hesitancy Musculoskeletal: + back pain (chronic stable) Integumentary: no rash and no non-healing lesions Neurologic: + unsteadiness, + generalized weakness, + paresthesia and + dizziness; no falls, no abnormal speech and no memory loss Psychiatric: no behavioral changes Endocrine: + fatigue Hematologic / Lymphatic: no easy bleeding Physical Exam Constitutional: well developed, well nourished and + obese; no acute distress hob at 30 degr on ra sleeping Eyes: EOM intact bilaterally ENMT: Ears: no external ear abnormality Nose: no external nose abnormality Mouth: + dry oral mucous membranes Neck: no nuchal rigidity Respiratory: normal respiratory effort Auscultation: + diminished lung sounds and + crackles (bL bases); no wheezes Cardiovascular: Rate/Rhythm: regular rate Heart Sounds: + murmur Extremities: + edema (1+ pretibial) Gastrointestinal (Abdomen): Inspection/Auscultation: normal bowel sounds Percussion/Palpation: abdomen soft; abdomen nontender Musculoskeletal: Extremities: strength 5/5 throughout mathew fluent speech Skin: no rashes, warm and dry Neurologic: mathew, fluent speech, no tremorl c/o claudication and diminsshed chronic sensation distal ble Psychiatric: A+Ox3, euthymic affect Eye Contact: good eye contact Speech: normal rate/rhythm/volume of speech Affect: euthymic affect Results & Data Vital Signs (Past 12 Hours) Vital Signs Temp Pulse Resp BP Pulse Ox 10/04/18 02:55 36.7 C 80 16 121/62 96 10/04/18 01:35 86 133/78 10/03/18 23:23 36.6 C 63 18 182/102 H 97 10/03/18 23:12 60 20 193/99 H 98 10/03/18 21:42 97 10/03/18 21:10 61 20 164/97 H Laboratory Results Abnormal lab results 10/03/18 10/03/18 10/03/18 Range/Units 20:29 20:29 20:29 WBC 4.76 L (4.8-10.8) K/uL RBC 4.10 L (4.7-6.1) M/uL Hgb 9.9 L (14.0-18.0) g/dL Hct 31.8 L (42-52) % MCV 77.6 L (80-100) fL MCH 24.1 L (25-34) pg MCHC 31.1 L (32-36) g/dL Plt Count 123 L (130-400) K/uL Lymph # (Auto) 0.68 L (1.2-3.4) K/uL PT 23.4 H (9.0-12.0) Seconds INR 2.4 H (0.9-1.1) BUN 38 H (7-18) mg/dl Creatinine 3.01 H (0.6-1.4) mg/dl Glucose 250 H (70-99) mg/dl POC Glucose (70-99) Hemoglobin A1c (4.5-5.6) % Troponin I 0.048 H* (0-0.045) ng/ml NT-Pro-B Natriuret Pep 7193 H (0-900) pg/ml Lipase 68 L (73-393) U/L 10/03/18 10/04/18 10/04/18 Range/Units 23:49 06:15 06:15 WBC (4.8-10.8) K/uL RBC (4.7-6.1) M/uL Hgb (14.0-18.0) g/dL Hct (42-52) % MCV (80-100) fL MCH (25-34) pg MCHC (32-36) g/dL Plt Count (130-400) K/uL Lymph # (Auto) (1.2-3.4) K/uL PT 23.5 H (9.0-12.0) Seconds INR 2.4 H (0.9-1.1) BUN 37 H (7-18) mg/dl Creatinine 3.06 H (0.6-1.4) mg/dl Glucose 214 H (70-99) mg/dl POC Glucose 193 H (70-99) Hemoglobin A1c (4.5-5.6) % Troponin I (0-0.045) ng/ml NT-Pro-B Natriuret Pep (0-900) pg/ml Lipase (73-393) U/L 10/04/18 10/04/18 10/04/18 Range/Units 06:15 06:15 07:06 WBC (4.8-10.8) K/uL RBC (4.7-6.1) M/uL Hgb (14.0-18.0) g/dL Hct (42-52) % MCV (80-100) fL MCH (25-34) pg MCHC (32-36) g/dL Plt Count (130-400) K/uL Lymph # (Auto) (1.2-3.4) K/uL PT (9.0-12.0) Seconds INR (0.9-1.1) BUN (7-18) mg/dl Creatinine (0.6-1.4) mg/dl Glucose (70-99) mg/dl POC Glucose 204 H (70-99) Hemoglobin A1c 10.2 H (4.5-5.6) % Troponin I 0.051 H* (0-0.045) ng/ml NT-Pro-B Natriuret Pep (0-900) pg/ml Lipase (73-393) U/L Diagnostic Findings cxr 1. Cardiomegaly without evidence for pulmonary edema. 2. Possible mild right infrahilar opacity. Arterial dopplers BLE 1. Hemodynamically significant stenosis suspected in the proximal to midportion of the left posterior tibial artery. 2. Hemodynamically significant stenosis in the left dorsalis pedis artery. 3. Normal toe brachial indices bilaterally. (1) Fluid overload Hypervolemia type: unspecified Qualified Code(s): E87.70 - Fluid overload, unspecified
[2018-10-04 08:35] LABS: Ovalocytes 1+; Platelet Estimate Normal (Normal)
[2018-10-04] MEDS: GABAPENTIN 100 MG CAP PO SCH ×3 (09:00→16:35)
[2018-10-04] MEDS: ISOSORBIDE DINITRATE 10 MG TAB PO SCH ×3 (09:00→16:34)
[2018-10-04] MEDS: ASPIRIN 81 MG ECTAB PO SCH (09:00)
[2018-10-04] MEDS: FUROSEMIDE 20 MG in SYRINGE 0 ML IV SCH ×2 (09:00→16:35)
[2018-10-04] MEDS: CHOLECALCIFEROL 1,000 UNITS TAB PO SCH (09:00)
[2018-10-04] MEDS: PANTOprazole 40 MG TAB PO SCH (09:00)
[2018-10-04] MEDS: METOPROLOL SUCC 50MG EXT REL TAB PO SCH (09:00)
--- NOTE | 2018-10-04 09:44 | Cardiology Consultation ---
Date of Consultation October 04, 2018 Assessment & Plan (1) Acute on chronic systolic HF (heart failure): Symptoms improving overnight with gentle diuresis. Fluid restriction of 1500 ml Sodium restriction < 1500 mg Monitor renal function closely. Continue current dose of IV furosemide May need to consider slightly increased dose of torsemide on discharge. Appreciate Nephro input (2) CKD (chronic kidney disease): Creatinine appears at baseline Nephrology consulted. Monitor (3) Peripheral arterial disease: Patient reports worsening claudication symptoms x 1 month. No pain at rest. Arterial duplex demonstrates significant stenosis of the left lower extremity. Will need to see vascular surgery as outpatient. In the meantime, continue ASA and Crestor (4) Aortic stenosis: Moderate to borderline severe noted by last echo in 07/2018. Repeat echo ordered as outpatient in 6 months. Need to consider future intervention, however work up limited by underlying CKD (5) Chronic anemia: at baseline. Monitor (6) PAF (paroxysmal atrial fibrillation): Currently NSR. Continue Metoprolol and coumadin (7) ARPIT (obstructive sleep apnea): Recent sleep study demonstrates severe ARPIT. Per patient, intolerant of CPAP. Recommend retrial of therapy to aid with CHF Supervising Physician Co-Signing Physician Notes Patient seen and examined at the bedside. Shortness of breath improved since admission. Weight is down 2 kg, however, urine output was not recorded. Patient denies chest pain or palpitations. Resting comfortably and lying supine. Denies orthopnea or PND. Voices concern regarding bilateral lower extremity discomfort particular with ambulation. A lower extremity arterial duplex demonstrated left lower extremity PVD in the area of the mid posterior tibial artery. No lower extremity ulceration or resting discomfort. Remains in sinus rhythm on telemetry. PE: VSS. Gen: NAD, AA0x 3. Heart: Regular, normal S1, S2. 3/6 systolic ejection murmur heard best at the right second intercostal space. Lungs: Diminished breath sounds bilateral. No rales, rhonchi, wheeze. Ext: Mild b/L pedal edema. 3/4 bilateral dorsalis pedis pulses. A/P: Agree with above PA-C history, physical exam, assessment and plan. Continue IV Lasix with repeat basic metabolic panel in a.m. Patient will likely require cautious titration of outpatient oral torsemide at time of discharge. In regard to the left lower extremity below the knee PVD, recommend medical management at this time (aspirin, Coumadin, statin). Bilateral lower extremity discomfort appears to be more consistent with neuropathy rather than classic claudication. History of Present Illness Reason for Consultation: CHF Requesting Physician: Dr. Richard Larkin Attending Physician: Dr. Nirav Wild History of Present Illness Patient is a complex 63-year-old male who is well-known to [facility] cardiology, primary carpenter repair is Dr. Pillo Graves. History is complex and includes: 1. Nonischemic cardiomyopathy, last ejection fraction of 45% to 50%, though with past ejection fractions as low as 30%. 2. History of compensated systolic heart failure. 3. Chronic left bundle branch block. 4. Status post biventricular pacer defibrillator implantation in June 2017. 5. Chronic renal insufficiency stage IV with chronic anemia. 6. Moderate to borderline severe aortic stenosis 7. Severe ARPIT Patient presented to [facility] yesterday with complaints of worsening SOB, weight gain of about 5 lbs, and increased abdominal bloating. Reports "I couldn't breathe". On arrival, oxygen saturations acceptable. Mild LE edema noted. Chest xray without significant findings. Troponin minimally elevated consistent with CKD and cardiomyopathy. Not indicative of acute CHF. Creatinine at baseline 3.0. He was treated with several doses of IV furosemide since admission with interval improvement in his symptoms. Down 2 kg since admission. Upon admission patient also reported significant calf pain with walking, consistent and concerning for possible claudication. He underwent arterial duplex which demonstrated significant stenosis within the left lower extremity. He denies acute left leg pain currently. Symptoms have been progressive over the last 3 weeks with walking, resolves with rest. At time of consult, patient feeling ok. Feels his SOB has improved. Edema also improving. Not quite as his baseline. No chest pain. No dizziness, syncope or near syncope. No orthopnea, PND. Allergies Allergy/AdvReac Type Severity Reaction Status Date / Time No Known Allergies Allergy Verified 10/03/18 21:11 Home Medications Home Medications Medication Instructions Recorded Confirmed Type Lantus Solostar U-100 Insulin 50 units SUBCUT HS 02/05/18 10/03/18 History aspirin 81 mg PO DAILY 02/05/18 10/03/18 History cholecalciferol (vitamin D3) 2,000 unit PO DAILY 02/05/18 10/03/18 History [Vitamin D3] insulin lispro [Humalog KwikPen 7 units SUBCUT TIDM 02/05/18 10/03/18 History Insulin] isosorbide dinitrate 20 mg PO TIDM 02/05/18 10/03/18 History metoprolol succinate [Toprol XL] 100 mg PO DAILY 02/05/18 10/03/18 History pantoprazole [Protonix] 40 mg PO DAILY 02/05/18 10/03/18 History rosuvastatin [Crestor] 40 mg PO HS 02/05/18 10/03/18 History gabapentin 100 mg PO TIDM 05/14/18 10/03/18 History hydralazine 25 mg PO TIDM 05/20/18 10/03/18 History Breo Ellipta 1 inh INHALATION DAILY 08/01/18 10/03/18 History albuterol sulfate [ProAir HFA] 2 puff INHALATION Q4H PRN 08/01/18 10/03/18 History fluticasone propionate [Flonase 2 spray INTRANASAL DAILY PRN 08/01/18 10/03/18 History Allergy Relief] ipratropium-albuterol 3 ml INHALATION QID PRN 08/01/18 10/03/18 History torsemide 10 mg PO 4XWK 10/03/18 10/03/18 History warfarin 5 mg PO DAILY 10/03/18 10/03/18 History Patient History Medical History Diabetic neuropathy (Chronic) Chronic systolic (congestive) heart failure (Chronic) Aortic stenosis (Chronic) Nocturnal hypoxia (Chronic) on 2L NC O2 HS GERD (gastroesophageal reflux disease) (Chronic) Thrombocytopenia (Chronic) Chronic anemia (Chronic) Asthma (Chronic) DM type 2 (diabetes mellitus, type 2) (Chronic) Dyslipidemia (Chronic) Hypertension (Chronic) CAD (coronary artery disease) (Chronic) "nonobstructive" Nonischemic cardiomyopathy (Chronic) "EF 40-45% with mod on 02/04" LBBB (left bundle branch block) (Chronic) Atrial fibrillation (Chronic) on chronic anticoagulation Surgical History H/O cardiac catheterization (Chronic) Non nonobstructive CAD on 2016 cardiac cath Presence of combination internal cardiac defibrillator (ICD) and pacemaker (Chronic) Family History Other Diabetes Hypertension Lung cancer Social History Preferred Language: Sudanese Communication Ability: Effective Visual Impairment: Limited Enterprise Systems Administrator Required: No Beliefs That Will Affect Care: None marital status: Current Living Situation: Family current occupational status: retired 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 Other Information That Helps Us Care for You: No Feels Safe at Home: Yes Safety Concerns: Feels Safe At This Time Smoking Status: Unknown if ever smoked Hx Alcohol Use: No Hx Substance Use: No Review of Systems Review of Systems: All systems reviewed & are unremarkable except as noted in HPI & below Physical Exam Constitutional: WD/WN, vitals as above + obese; no acute distress Eyes: PERRL, conjunctivae normal, anicteric sclerae ENMT: external ear and nose normal, oropharynx normal Neck: trachea midline, no thyromegaly Respiratory: + labored breathing (conversational dyspnea noted) Auscultation: + diminished lung sounds; no rales, no rhonchi and no wheezes Cardiovascular: Rate/Rhythm: regular rate and regular rhythm Heart Sounds: + murmur (III/ systolic murmur best heard left sternal border) Vessels: + JVD Extremities: + edema (1-2+) Gastrointestinal (Abdomen): normal bowel sounds, soft, nontender, no hepatosplenomegaly Musculoskeletal: no cyanosis or clubbing, extremities motor strength 5/5 Psychiatric: A+Ox3, euthymic affect Results & Data Vital Signs (Past 12 Hours) Vital Signs Temp Pulse Resp BP Pulse Ox 10/04/18 02:55 36.7 C 80 16 121/62 96 10/04/18 01:35 86 133/78 10/03/18 23:23 36.6 C 63 18 182/102 H 97 10/03/18 23:12 60 20 193/99 H 98 Laboratory Results 10/04/18 10/04/18 10/04/18 Range/Units 07:06 06:15 06:15 WBC (4.8-10.8) K/uL RBC (4.7-6.1) M/uL Hgb (14.0-18.0) g/dL Hct (42-52) % MCV (80-100) fL MCH (25-34) pg MCHC (32-36) g/dL RDW Std Deviation (36.4-46.3) fL RDW Coeff of Joey (11.5-14.5) % Plt Count (130-400) K/uL MPV (7.4-10.4) fL Immature Gran % (Auto) % Neut % (Auto) % Lymph % (Auto) % [place] % (Auto) % Eos % (Auto) % Baso % (Auto) % Immature Gran # (Auto) (0.00-0.02) K/uL Neut # (Auto) (1.4-6.5) K/uL Lymph # (Auto) (1.2-3.4) K/uL [place] # (Auto) (0.11-0.59) K/uL Eos # (Auto) (0-0.5) K/uL Baso # (Auto) (0-0.2) K/uL Platelet Estimate (Normal) Ovalocytes PT (9.0-12.0) Seconds INR (0.9-1.1) Sodium (136-145) mmol/L Potassium (3.5-5.1) mmol/L Chloride (98-107) mmol/L Carbon Dioxide (21-32) mmol/L Anion Gap (3-11) BUN (7-18) mg/dl Creatinine (0.6-1.4) mg/dl Est Cr Clr Drug Dosing ml/min Est GFR ( Amer) Est GFR (Non-Af Amer) BUN/Creatinine Ratio (10-20) Glucose (70-99) mg/dl POC Glucose 204 H (70-99) Estimat Average Glucose 246 mg/dl Hemoglobin A1c 10.2 H (4.5-5.6) % Calcium (8.5-10.1) mg/dl Magnesium (1.8-2.4) mg/dl Total Bilirubin (0.2-1) mg/dl AST (15-37) U/L ALT (12-78) U/L Alkaline Phosphatase (45-117) U/L Troponin I 0.051 H* (0-0.045) ng/ml NT-Pro-B Natriuret Pep (0-900) pg/ml Total Protein (6.4-8.2) gm/dl Albumin (3.4-5.0) gm/dl Globulin (2.5-4.0) gm/dl Albumin/Globulin Ratio (0.9-2) Lipase (73-393) U/L 10/04/18 10/04/18 10/04/18 Range/Units 06:15 06:15 06:15 WBC 4.89 (4.8-10.8) K/uL RBC 4.02 L (4.7-6.1) M/uL Hgb 9.8 L (14.0-18.0) g/dL Hct 31.4 L (42-52) % MCV 78.1 L (80-100) fL MCH 24.4 L (25-34) pg MCHC 31.2 L (32-36) g/dL RDW Std Deviation 41.6 (36.4-46.3) fL RDW Coeff of Joey 14.6 H (11.5-14.5) % Plt Count 125 L (130-400) K/uL MPV 10.0 (7.4-10.4) fL Immature Gran % (Auto) 0.2 % Neut % (Auto) 70.2 % Lymph % (Auto) 17.0 % [place] % (Auto) 10.2 % Eos % (Auto) 2.2 % Baso % (Auto) 0.2 % Immature Gran # (Auto) 0.01 (0.00-0.02) K/uL Neut # (Auto) 3.43 (1.4-6.5) K/uL Lymph # (Auto) 0.83 L (1.2-3.4) K/uL [place] # (Auto) 0.50 (0.11-0.59) K/uL Eos # (Auto) 0.11 (0-0.5) K/uL Baso # (Auto) 0.01 (0-0.2) K/uL Platelet Estimate Normal (Normal) Ovalocytes 1+ PT 23.5 H (9.0-12.0) Seconds INR 2.4 H (0.9-1.1) Sodium 142 (136-145) mmol/L Potassium 3.6 (3.5-5.1) mmol/L Chloride 104 (98-107) mmol/L Carbon Dioxide 32 (21-32) mmol/L Anion Gap 6.0 (3-11) BUN 37 H (7-18) mg/dl Creatinine 3.06 H (0.6-1.4) mg/dl Est Cr Clr Drug Dosing 30.4 ml/min Est GFR ( Amer) 23.7 Est GFR (Non-Af Amer) 20.5 BUN/Creatinine Ratio 12.2 (10-20) Glucose 214 H (70-99) mg/dl POC Glucose (70-99) Estimat Average Glucose mg/dl Hemoglobin A1c (4.5-5.6) % Calcium 8.7 (8.5-10.1) mg/dl Magnesium 2.3 (1.8-2.4) mg/dl Total Bilirubin (0.2-1) mg/dl AST (15-37) U/L ALT (12-78) U/L Alkaline Phosphatase (45-117) U/L Troponin I (0-0.045) ng/ml NT-Pro-B Natriuret Pep (0-900) pg/ml Total Protein (6.4-8.2) gm/dl Albumin (3.4-5.0) gm/dl Globulin (2.5-4.0) gm/dl Albumin/Globulin Ratio (0.9-2) Lipase (73-393) U/L 10/03/18 10/03/18 10/03/18 Range/Units 23:49 20:29 20:29 WBC (4.8-10.8) K/uL RBC (4.7-6.1) M/uL Hgb (14.0-18.0) g/dL Hct (42-52) % MCV (80-100) fL MCH (25-34) pg MCHC (32-36) g/dL RDW Std Deviation (36.4-46.3) fL RDW Coeff of Joey (11.5-14.5) % Plt Count (130-400) K/uL MPV (7.4-10.4) fL Immature Gran % (Auto) % Neut % (Auto) % Lymph % (Auto) % [place] % (Auto) % Eos % (Auto) % Baso % (Auto) % Immature Gran # (Auto) (0.00-0.02) K/uL Neut # (Auto) (1.4-6.5) K/uL Lymph # (Auto) (1.2-3.4) K/uL [place] # (Auto) (0.11-0.59) K/uL Eos # (Auto) (0-0.5) K/uL Baso # (Auto) (0-0.2) K/uL Platelet Estimate (Normal) Ovalocytes PT 23.4 H (9.0-12.0) Seconds INR 2.4 H (0.9-1.1) Sodium 140 (136-145) mmol/L Potassium 4.2 (3.5-5.1) mmol/L Chloride 105 (98-107) mmol/L Carbon Dioxide 29 (21-32) mmol/L Anion Gap 7.0 (3-11) BUN 38 H (7-18) mg/dl Creatinine 3.01 H (0.6-1.4) mg/dl Est Cr Clr Drug Dosing 30.6 ml/min Est GFR ( Amer) 24.2 Est GFR (Non-Af Amer) 20.9 BUN/Creatinine Ratio 12.5 (10-20) Glucose 250 H (70-99) mg/dl POC Glucose 193 H (70-99) Estimat Average Glucose mg/dl Hemoglobin A1c (4.5-5.6) % Calcium 8.6 (8.5-10.1) mg/dl Magnesium 2.2 (1.8-2.4) mg/dl Total Bilirubin 0.7 (0.2-1) mg/dl AST 24 (15-37) U/L ALT 29 (12-78) U/L Alkaline Phosphatase 73 (45-117) U/L Troponin I 0.048 H* (0-0.045) ng/ml NT-Pro-B Natriuret Pep 7193 H (0-900) pg/ml Total Protein 7.2 (6.4-8.2) gm/dl Albumin 3.7 (3.4-5.0) gm/dl Globulin 3.5 (2.5-4.0) gm/dl Albumin/Globulin Ratio 1.1 (0.9-2) Lipase 68 L (73-393) U/L 10/03/18 Range/Units 20:29 WBC 4.76 L (4.8-10.8) K/uL RBC 4.10 L (4.7-6.1) M/uL Hgb 9.9 L (14.0-18.0) g/dL Hct 31.8 L (42-52) % MCV 77.6 L (80-100) fL MCH 24.1 L (25-34) pg MCHC 31.1 L (32-36) g/dL RDW Std Deviation 41.0 (36.4-46.3) fL RDW Coeff of Joey 14.4 (11.5-14.5) % Plt Count 123 L (130-400) K/uL MPV 9.7 (7.4-10.4) fL Immature Gran % (Auto) 0.2 % Neut % (Auto) 74.6 % Lymph % (Auto) 14.3 % [place] % (Auto) 8.8 % Eos % (Auto) 1.9 % Baso % (Auto) 0.2 % Immature Gran # (Auto) 0.01 (0.00-0.02) K/uL Neut # (Auto) 3.55 (1.4-6.5) K/uL Lymph # (Auto) 0.68 L (1.2-3.4) K/uL [place] # (Auto) 0.42 (0.11-0.59) K/uL Eos # (Auto) 0.09 (0-0.5) K/uL Baso # (Auto) 0.01 (0-0.2) K/uL Platelet Estimate (Normal) Ovalocytes 1+ PT (9.0-12.0) Seconds INR (0.9-1.1) Sodium (136-145) mmol/L Potassium (3.5-5.1) mmol/L Chloride (98-107) mmol/L Carbon Dioxide (21-32) mmol/L Anion Gap (3-11) BUN (7-18) mg/dl Creatinine (0.6-1.4) mg/dl Est Cr Clr Drug Dosing ml/min Est GFR ( Amer) Est GFR (Non-Af Amer) BUN/Creatinine Ratio (10-20) Glucose (70-99) mg/dl POC Glucose (70-99) Estimat Average Glucose mg/dl Hemoglobin A1c (4.5-5.6) % Calcium (8.5-10.1) mg/dl Magnesium (1.8-2.4) mg/dl Total Bilirubin (0.2-1) mg/dl AST (15-37) U/L ALT (12-78) U/L Alkaline Phosphatase (45-117) U/L Troponin I (0-0.045) ng/ml NT-Pro-B Natriuret Pep (0-900) pg/ml Total Protein (6.4-8.2) gm/dl Albumin (3.4-5.0) gm/dl Globulin (2.5-4.0) gm/dl Albumin/Globulin Ratio (0.9-2) Lipase (73-393) U/L Diagnostic Findings Chest xray on admission: IMPRESSION: 1. Cardiomegaly without evidence for pulmonary edema. 2. Possible mild right infrahilar opacity. Arterial duplex of LE: 1. Hemodynamically significant stenosis suspected in the proximal to midportion of the left posterior tibial artery. 2. Hemodynamically significant stenosis in the left dorsalis pedis artery. 3. Normal toe brachial indices bilaterally Telemetry reviewed: dual AV pacing. No arrhythmias. (1) Aortic stenosis Cardiac valve disease etiology: nonrheumatic Qualified Code(s): I35.0 - Nonrheumatic aortic (valve) stenosis (2) CKD (chronic kidney disease) Chronic kidney disease stage: unspecified stage Qualified Code(s): N18.9 - Chronic kidney disease, unspecified
--- NOTE | 2018-10-04 15:10 | Hospitalist Progress Note ---
Date of Service October 04, 2018 Assessment & Plan (1) Acute on chronic systolic HF (heart failure): -held home torsemide. patient received 40 mg Lasix x1 dose in the ED -admission weight 119.9; already down 1 kg; goal wt for d/c would be somewhere in range of 116 kg as per nephrology -continue Lasix as 20 mg IV BID -Fluid restriction of 1500 ml - restriction < 1500 mg Chronic kidney disease stage IV , GFR 15-29 ml/min: -since april, his creatinine has run 2.8-3.4, w/ progressive chronic renal renal failure and often quite labile function. currently at 3.1, so within baseline Aortic stenosis: -Moderate to borderline severe noted by last echo in 07/2018. Repeat echo ordered as outpatient in 6 months. -Need to consider future intervention, however work up limited by underlying CKD PAF (paroxysmal atrial fibrillation) Anticoagulated by anticoagulation therapy with coumadin history of nonocclusive coronary artery disease -A left subclavian biventricular pacer/AICD is in place -Continue Metoprolol and coumadin Peripheral arterial disease: -Patient reports worsening claudication symptoms x 1 month. -Arterial duplex demonstrates significant stenosis of the left lower extremity. -Will need to see vascular surgery as outpatient. -continue ASA and Crestor Chronic anemia: -monitor Type 2 diabetes mellitus hyperglycemia with usp 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 insulin -He reports BG values frequently in 200-300's at home. A1c was 10.2%. He most likely needs additional insulin post-discharge. -continue home Lantus 50 units at bedtime and insulin sliding scale ARPIT (obstructive sleep apnea) / History of mild chronic obstructive pulmonary disease and pulmonary hypertension -Recent sleep study demonstrates severe ARPIT. Per patient, intolerant of CPAP. -Continue home inhalers. Deep venous thrombosis prophylaxis, on Coumadin. INR therapeutic. Subjective Patient seen and examined. On telemetry unit. heart rate is controlled. patient breathing on room air. no acute pain reported by patient to medical doctor. patient appears comfortable. we talked about weight gain. we talked about fluid intake at home and salt use. we talked about home medication use. we talked about current medical plans. Physical Exam Constitutional: + obese Eyes: PERRL, conjunctivae normal, anicteric sclerae EOM intact bilaterally ENMT: external ear and nose normal, oropharynx normal Neck: trachea midline, no thyromegaly normal visual inspection Respiratory: normal respiratory effort, lungs clear to auscultation Cardiovascular: Rate/Rhythm: regular rate and regular rhythm Gastrointestinal (Abdomen): Inspection/Auscultation: normal bowel sounds Musculoskeletal: Head/Neck/Chest: normocephalic and head atraumatic Neurologic: PERRL, EOMI, accommodation nl, no face palsy, no dysarthria CN's II-XI intact bilaterally Psychiatric: A+Ox3, euthymic affect Results & Data Vital Signs (Past 12 Hours) Vital Signs Temp Pulse Resp BP Pulse Ox 10/04/18 11:16 36.4 C L 68 20 160/74 H 99
[2018-10-04] MEDS: WARFARIN SOD 5 MG TAB PO SCH (16:32)
[2018-10-04] MEDS: ROSUVASTATIN CALCIUM 20 MG TAB PO SCH (20:09)
--- NOTE | 2018-10-05 03:42 | Emergency Department Note ---
Entered by Elly Baker acting as a scribe for Sho Richards DO History of Present Illness General Chief complaint: Shortness of Breath/Dyspnea Stated complaint: BREATHING ISSUES Time Seen by Provider: 10/03/18 19:53 Source: patient and family () History of Present Illness Onset (ago): day(s) (several ) Location: chest Severity: similar to prior episodes Pain Consistency: + other (worsening) Quality: + other (shortness of breath ) Relieved By: not by medication (water pill) Exacerbated By: + other (exertion; laying flat) Associated symptoms: + chest pain, + loss of appetite and + other (negative diarrhea); no fever/chills and no nausea/vomiting Treatments prior to arrival: other (water pill) The patient is a 63 year old male who presents to the Emergency Room with complaints of worsening shortness of breath that began several days prior to arrival. The patient states that this is similar to prior episodes of shortness of breath with fluid buildup. The patient states that his symptoms are exacerbated by laying flat and exertion. Per the patient's , the patient took an extra water pill today to help relieve his symptoms, but states that this did not relieve his symptoms. The patient states that he gained 4lbs since this morning, and states that his sugar was high at this time. The patient states that he typically gets chest pain with these episodes of shortness of breath, and states that he currently has chest pain. He states that he has had no appetite during this time, and states that this is typical for his episodes of shortness of breath. The patient denies fevers and chills, vomiting, and d iarrhea. The patient denies recent changes in medications. Patient states he has previously been admitted with similar episodes. Denies any recent dietary indiscretion. Home Medications Home Medications Medication Instructions Recorded Confirmed Type Lantus Solostar U-100 Insulin 50 units SUBCUT HS 02/05/18 10/03/18 History aspirin 81 mg PO DAILY 02/05/18 10/03/18 History cholecalciferol (vitamin D3) 2,000 unit PO DAILY 02/05/18 10/03/18 History [Vitamin D3] insulin lispro [Humalog KwikPen 7 units SUBCUT TIDM 02/05/18 10/03/18 History Insulin] isosorbide dinitrate 20 mg PO TIDM 02/05/18 10/03/18 History metoprolol succinate [Toprol XL] 100 mg PO DAILY 02/05/18 10/03/18 History pantoprazole [Protonix] 40 mg PO DAILY 02/05/18 10/03/18 History rosuvastatin [Crestor] 40 mg PO HS 02/05/18 10/03/18 History gabapentin 100 mg PO TIDM 05/14/18 10/03/18 History hydralazine 25 mg PO TIDM 05/20/18 10/03/18 History Breo Ellipta 1 inh INHALATION DAILY 08/01/18 10/03/18 History albuterol sulfate [ProAir HFA] 2 puff INHALATION Q4H PRN 08/01/18 10/03/18 History fluticasone propionate [Flonase 2 spray INTRANASAL DAILY PRN 08/01/18 10/03/18 History Allergy Relief] ipratropium-albuterol 3 ml INHALATION QID PRN 08/01/18 10/03/18 History torsemide 10 mg PO 4XWK 10/03/18 10/03/18 History warfarin 5 mg PO DAILY 10/03/18 10/03/18 History Allergies Allergy/AdvReac Type Severity Reaction Status Date / Time No Known Allergies Allergy Verified 10/03/18 21:11 Past Med/Surg History Medical History Diabetic neuropathy (Chronic) Chronic systolic (congestive) heart failure (Chronic) Aortic stenosis (Chronic) Nocturnal hypoxia (Chronic) on 2L NC O2 HS GERD (gastroesophageal reflux disease) (Chronic) Thrombocytopenia (Chronic) Chronic anemia (Chronic) Asthma (Chronic) DM type 2 (diabetes mellitus, type 2) (Chronic) Dyslipidemia (Chronic) Hypertension (Chronic) CAD (coronary artery disease) (Chronic) "nonobstructive" Nonischemic cardiomyopathy (Chronic) "EF 40-45% with mod on 02/04" LBBB (left bundle branch block) (Chronic) Atrial fibrillation (Chronic) on chronic anticoagulation Surgical History H/O cardiac catheterization (Chronic) Non nonobstructive CAD on 2017 cardiac cath Presence of combination internal cardiac defibrillator (ICD) and pacemaker (Chronic) Family History Other Diabetes Hypertension Lung cancer Social History Preferred Language: [place] Communication Ability: Effective Visual Impairment: Limited Director Dermatology Required: No Beliefs That Will Affect Care: None marital status: Current Living Situation: Family current occupational status: retired 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 and A total of 10 systems reviewed and were otherwise negative Physical Exam Vital Signs Vital Signs - 24 hr 10/03/18 19:42 10/03/18 21:10 10/03/18 21:42 Temperature 98.1 F Temperature Source Oral Sepsis Recent Fever Within 48 Hours No Sepsis New/Unexplained Change in Mental Status No Sepsis Action Taken by Nursing No Action Required Pulse Rate 79 Pulse Rate [Apical] 61 Respiratory Rate 26 H 20 Respiratory Depth Shallow Blood Pressure 151/81 H Blood Pressure [Left Arm] 164/97 H Blood Pressure Mean 104 Blood Pressure Mean [Left Arm] 119 Blood Pressure Position Sitting Pulse Oximetry 97 97 Oxygen Delivery Method Room Air Room Air GENERAL: Obese, alert, well appearing, well nourished, no distress, non-toxic EYE EXAM: normal conjunctiva, PERRL and EOM's grossly intact OROPHARYNX: no exudate, no erythema, lips, buccal mucosa, and tongue normal and mucous membranes are moist NECK: supple, no nuchal rigidity, no adenopathy, non-tender LUNGS: Fine bibasilar rales. Normal chest wall mechanics HEART: no murmurs, S1 normal and S2 normal ABDOMEN: abdomen soft, non-tender, normo-active bowel sounds, no masses, no rebound or guarding. BACK: Back is symmetrical on inspection and there is no deformity, no midline tenderness, no CVA tenderness. SKIN: no rashes and no bruising UPPER EXTREMITIES: upper extremities are grossly normal. FROM, nml pulses b/l. LOWER EXTREMITIES: 1+ lower extremity edema bilaterally. FROM, nml pulses b/l. NEURO EXAM: Normal sensorium, cranial nerves II-XII grossly intact, normal speech, no gross weakness of arms, no gross weakness of legs. Course 2002: Past medical records reviewed. The patient was evaluated in room B3B. A complete history and physical exam was performed. 2121: I discussed the case with Dr. Rock Hospitalist who accepts the patient for further evaluation. 2146: I checked on and updated the patient and he is in agreement with the treatment plan. Administered Medications Aspirin (Ecotrin Ectab) 81 mg PO DAILY [facility] Stop: 11/03/18 08:59 Last Admin: 10/04/18 09:00 Dose: 81 mg Documented by: [id number] Gabapentin (Neurontin) 100 mg PO TIDM [facility] Stop: 11/03/18 07:59 Last Admin: 10/04/18 16:35 Dose: 100 mg Documented by: [id number] Admin: 10/04/18 12:44 Dose: 100 mg Documented by: [id number] Admin: 10/04/18 09:00 Dose: 100 mg Documented by: [id number] Hydralazine HCl (Apresoline) 25 mg PO TIDM [facility] Stop: 11/03/18 07:59 Last Admin: 10/04/18 16:35 Dose: 25 mg Documented by: [id number] Admin: 10/04/18 12:44 Dose: 25 mg Documented by: [id number] Admin: 10/04/18 09:00 Dose: 25 mg Documented by: [id number] Furosemide 20 mg/ Syringe 2 mls @ 4 mls/min IV [id number] [facility] Stop: 11/03/18 08:59 Last Admin: 10/04/18 16:35 Dose: 4 mls/min Documented by: [id number] Admin: 10/04/18 09:00 Dose: 4 mls/min Documented by: [id number] Insulin Aspart (Novolog Flexpen) 0 units SC ACHS [facility] Stop: 11/03/18 00:00 Last Admin: 10/04/18 20:07 Dose: 2 units Documented by: [id number] Cosigned by: [id number] Admin: 10/04/18 16:33 Dose: 5 units Documented by: [id number] Cosigned by: [id number] Admin: 10/04/18 12:44 Dose: 10 units Documented by: [id number] Cosigned by: [id number] Admin: 10/04/18 09:00 Dose: 7 units Documented by: [id number] Cosigned by: [id number] Admin: 10/04/18 00:56 Dose: Not Given Documented by: [id number] Insulin Glargine (Lantus Solostar Pen) 50 units SQ HS [facility] Stop: 11/03/18 00:00 Last Admin: 10/04/18 20:07 Dose: 50 units Documented by: [id number] Cosigned by: [id number] Admin: 10/04/18 00:56 Dose: 50 units Documented by: [id number] Cosigned by: [id number] Isosorbide Dinitrate (Isordil) 20 mg PO TID@0700,1200,1700 [facility] Stop: 11/03/18 06:59 Last Admin: 10/04/18 16:34 Dose: 20 mg Documented by: [id number] Admin: 10/04/18 12:44 Dose: 20 mg Documented by: [id number] Admin: 10/04/18 09:00 Dose: 20 mg Documented by: [id number] Metoprolol Succinate (Toprol Xl) 100 mg PO DAILY [facility] Stop: 11/03/18 08:59 Last Admin: 10/04/18 09:00 Dose: 100 mg Documented by: [id number] Miscellaneous (Order Awaiting Action) 1 ea N/A DAILY [facility] Stop: 11/03/18 08:59 Last Admin: 10/04/18 09:31 Dose: Not Given Documented by: [id number] Pantoprazole Sodium (Protonix) 40 mg PO DAILY [facility] Stop: 11/03/18 08:59 Last Admin: 10/04/18 09:00 Dose: 40 mg Documented by: [id number] Rosuvastatin Calcium (Crestor) 40 mg PO HS [facility] Stop: 11/03/18 20:59 Last Admin: 10/04/18 20:09 Dose: 40 mg Documented by: [id number] Vitamin D (Vitamin D3) 2,000 units PO DAILY [facility] Stop: 11/03/18 08:59 Last Admin: 10/04/18 09:00 Dose: 2,000 units Documented by: [id number] Warfarin Sodium (Coumadin) 5 mg PO DAILY@1600 [facility] Stop: 11/03/18 15:59 Last Admin: 10/04/18 16:32 Dose: 5 mg Documented by: [id number] Discontinued Medications Azithromycin (Zithromax) 500 mg PO NOW ONE Stop: 10/03/18 21:19 Last Admin: 10/03/18 21:34 Dose: 500 mg Documented by: [id number] Furosemide (Lasix) 40 mg IV NOW STA Stop: 10/03/18 23:21 Last Admin: 10/04/18 00:56 Dose: 40 mg Documented by: [id number] Ceftriaxone Sodium (Rocephin) 1,000 mg in 50 mls @ 100 mls/hr IV NOW STA Stop: 10/03/18 21:47 Last Infusion: 10/03/18 22:09 Dose: 0 mls/hr Documented by: [id number] Admin: 10/03/18 21:34 Dose: 100 mls/hr Documented by: [id number] Nitroglycerin (Nitro-Bid 2%) 1 inch EXT NOW STA Stop: 10/03/18 20:12 Last Admin: 10/03/18 20:37 Dose: 1 inch Documented by: [id number] Medical Decision Making Differential Diagnosis Differential diagnosis: Etiologies such as infections, reactive airway disease, pneumonia, pneumothorax, COPD, CHF, cardiac ischemia, pulmonary embolism, musculoskeletal, gastrointestinal, as well as others were entertained. Medical Records Attestation: I reviewed the patient's medical records. Home Medications Current Medication List: was personally reviewed by me Laboratory Data Attestation: I reviewed the patient's lab results. Result diagrams: 10/04/18 06:15 10/04/18 06:15 Lab Results 10/03/18 10/03/18 10/03/18 Range/Units 20:29 20:29 20:29 WBC 4.76 L (4.8-10.8) K/uL RBC 4.10 L (4.7-6.1) M/uL Hgb 9.9 L (14.0-18.0) g/dL Hct 31.8 L (42-52) % MCV 77.6 L (80-100) fL MCH 24.1 L (25-34) pg MCHC 31.1 L (32-36) g/dL RDW Std Deviation 41.0 (36.4-46.3) fL RDW Coeff of Joey 14.4 (11.5-14.5) % Plt Count 123 L (130-400) K/uL MPV 9.7 (7.4-10.4) fL Immature Gran % (Auto) 0.2 % Neut % (Auto) 74.6 % Lymph % (Auto) 14.3 % Richardson % (Auto) 8.8 % Eos % (Auto) 1.9 % Baso % (Auto) 0.2 % Immature Gran # (Auto) 0.01 (0.00-0.02) K/uL Neut # (Auto) 3.55 (1.4-6.5) K/uL Lymph # (Auto) 0.68 L (1.2-3.4) K/uL Richardson # (Auto) 0.42 (0.11-0.59) K/uL Eos # (Auto) 0.09 (0-0.5) K/uL Baso # (Auto) 0.01 (0-0.2) K/uL Ovalocytes 1+ PT 23.4 H (9.0-12.0) Seconds INR 2.4 H (0.9-1.1) Sodium 140 (136-145) mmol/L Potassium 4.2 (3.5-5.1) mmol/L Chloride 105 (98-107) mmol/L Carbon Dioxide 29 (21-32) mmol/L Anion Gap 7.0 (3-11) BUN 38 H (7-18) mg/dl Creatinine 3.01 H (0.6-1.4) mg/dl Est Cr Clr Drug Dosing 30.6 ml/min Est GFR ( Amer) 24.2 Est GFR (Non-Af Amer) 20.9 BUN/Creatinine Ratio 12.5 (10-20) Glucose 250 H (70-99) mg/dl Calcium 8.6 (8.5-10.1) mg/dl Magnesium 2.2 (1.8-2.4) mg/dl Total Bilirubin 0.7 (0.2-1) mg/dl AST 24 (15-37) U/L ALT 29 (12-78) U/L Alkaline Phosphatase 73 (45-117) U/L Troponin I 0.048 H* (0-0.045) ng/ml NT-Pro-B Natriuret Pep 7193 H (0-900) pg/ml Total Protein 7.2 (6.4-8.2) gm/dl Albumin 3.7 (3.4-5.0) gm/dl Globulin 3.5 (2.5-4.0) gm/dl Albumin/Globulin Ratio 1.1 (0.9-2) Lipase 68 L (73-393) U/L Imaging Data Radiologist's Impression: Radiology results as stated below per my review and the radiologist's interpretation: XR chest 1V portable CLINICAL HISTORY: Shortness of breath and chest pain. COMPARISON STUDY: Chest CT May 15, 2018. Chest radiograph August 01, 2018. FINDINGS: A left subclavian biventricular pacer/AICD is in place. There is no pneumothorax or pleural effusion. There is no evidence for pulmonary edema. Cardiomegaly is unchanged. There is possible mild right infrahilar opacity. IMPRESSION: 1. Cardiomegaly without evidence for pulmonary edema. 2. Possible mild right infrahilar opacity. Electronically signed by: Balwinder Juarez M.D. 10/03/2018 8:39 PM ECG Data Attestation: I personally reviewed and interpreted this ECG as follows: Indication: SOB/dyspnea Rate (beats per minute): 60 Rhythm: other (AV paced) Findings: + other (prolonged intervals consistent with pacing); no acute ischemic change Blood Pressure Blood Pressure Findings: Elevated blood pressure Blood Pressure Disposition: further management by hospitalist ABDULLAHI Narrative Patient here with concerning story for evolving exacerbation of congestive heart failure. Patient on daily diuretic and has a history of both cardiac and renal dysfunction. Patient does do daily weights and as a result of recent weight gain had doubled up on his daily diuretic as he previously been instructed, but continued to gain weight and have increased work of breathing. Patient not hypoxic here at rest, however reports his breathing is markedly worse in the supine position and with exertion. I do not suspect occult infectious etiology. No recent fevers or other URI symptoms. No evidence of pneumonia on chest x- ray. I do not suspect PE as patient is anticoagulated and level was therapeutic. While patient's troponin was slightly elevated, I feel this is likely secondary to the CHF and increased demand, I do not suspect primary ACS. Patient's EKG otherwise reassuring. Patient with a history of chronic kidney disease, levels appear stable compared to prior. Patient with anemia likely secondary to chronic kidney disease, H&H appears stable prior also. Patient made aware of all results and was in agreement with plan. Case discussed with hospitalist for additional evaluation and management. Impression & Plan CHF (congestive heart failure), CKD (chronic kidney disease), Elevated troponin Discharge Plan Visit Data *Final* Discharge Date/Time: 10/03/18 23:15 Chief Complaint: Shortness of Breath/Dyspnea Stated Complaint: BREATHING ISSUES ED Provider: Sho Richards Discharge Problem: CHF (congestive heart failure), CKD (chronic kidney disease), Elevated troponin Patient Disposition: Admitted As Inpatient Discharge Instructions Interventions: ED Discharge Assessment Last Done: 10/03/18 23:15 Discharge Problem: CHF (congestive heart failure) Qualifiers: Heart failure type: combined systolic and diastolic Heart failure chronicity: acute on chronic Qualified Code(s): I50.43 - Acute on chronic combined systolic (congestive) and diastolic (congestive) heart failure CKD (chronic kidney disease) Qualifiers: Chronic kidney disease stage: unspecified stage Qualified Code(s): N18.9 - Chronic kidney disease, unspecified The scribe's documentation has been prepared under my direction and personally reviewed by me in its entirety. I confirm that the note above accurately reflects all work, treatment, procedures, and medical decision making performed by me.
[2018-10-05 06:04] LABS: INR 2.2 (0.9-1.1); Prothrombin Time 21.4 Seconds (9.0-12.0)
--- NOTE | 2018-10-05 06:56 | Nephrology Progress Note ---
Date of Service October 05, 2018 Assessment & Plan (1) CKD (chronic kidney disease) stage 4, GFR 15-29 ml/min: since april, his creatinine has run 2.8-3.4, w/ progressive chronic renal renal failure and often quite labile function. currently at 3.1 as of yesterday am (today's lab pending>2.9), so within baseline. his chemistries are acceptable; bp is controlled today though has been intermittently elevated; he has at least mild volume overload and moderate/ stable anemia . His urine co nsistently has glucosuria and proteinuria from his uncontrolled DM; no evidence of infection or GN. -continue OP BP meds and monitor BP -daily bmp -f/u today's pending lab -agree w/ current lasix dosing and hold torsemide -moderate anemia, mild thrombocytopenia at baseline -will need OP f/u for PAD -he has f/u appt w/ me CKD clinic 10/12 in [facility] (2) Fluid overload: -admission weight 119.9; trending down as of yesterday am; suspect today's wt not standing and requested standings wts only; goal wt for d/c would be somewhere in range of 116 kg depending on sx and other clinical status; need to take care as pt tends to have orthostatic hypontension/ dizziness -agree w/ lasix IV bid17 at 20 mg for now -cont <2 gm daily Na diet and 1.5L FR Subjective seen on rounds this am at 0900; breathing a bit improved; wt coming down; still genearlized weakness, exertional dypsnea Review of Systems Review of Systems: All systems reviewed & are unremarkable except as noted in HPI & below Physical Exam Constitutional: well developed, well nourished and + obese; no acute distress lying HOB 30 degr on ra Eyes: EOM intact bilaterally ENMT: Ears: no external ear abnormality Nose: no external nose abnormality Mouth: + dry oral mucous membranes Neck: no nuchal rigidity Respiratory: normal respiratory effort Auscultation: + diminished lung sounds Cardiovascular: Rate/Rhythm: regular rate Heart Sounds: + murmur Extremities: no edema Gastrointestinal (Abdomen): Inspection/Auscultation: normal bowel sounds Percussion/Palpation: abdomen soft; abdomen nontender Musculoskeletal: Extremities: strength 5/5 throughout Skin: no rashes, warm and dry Neurologic: mathew fluraymond tspeech Psychiatric: A+Ox3, euthymic affect Eye Contact: good eye contact Speech: normal rate/rhythm/volume of speech Affect: euthymic affect Results & Data Vital Signs (Past 12 Hours) Vital Signs Temp Pulse Resp BP BP Pulse Ox 10/05/18 06:51 36.7 C 74 16 158/86 H 94 10/05/18 04:06 36.3 C L 69 18 137/79 96 10/04/18 23:28 36.8 C 62 16 161/83 H 96 10/04/18 20:02 36.7 C 60 20 147/80 H 96 Laboratory Results Abnormal lab results 10/05/18 10/05/18 10/05/18 Range/Units 05:25 05:25 05:30 RBC 3.97 L (4.7-6.1) M/uL Hgb 9.6 L (14.0-18.0) g/dL Hct 30.6 L (42-52) % MCV 77.1 L (80-100) fL MCH 24.2 L (25-34) pg MCHC 31.4 L (32-36) g/dL Absolute Nucleated RBC 0.05 H (0-0) K/uL PT 21.4 H (9.0-12.0) Seconds INR 2.2 H (0.9-1.1) BUN 35 H (7-18) mg/dl Creatinine 2.88 H (0.6-1.4) mg/dl POC Glucose (70-99) 10/05/18 10/05/18 10/05/18 Range/Units 10:52 16:27 20:16 RBC (4.7-6.1) M/uL Hgb (14.0-18.0) g/dL Hct (42-52) % MCV (80-100) fL MCH (25-34) pg MCHC (32-36) g/dL Absolute Nucleated RBC (0-0) K/uL PT (9.0-12.0) Seconds INR (0.9-1.1) BUN (7-18) mg/dl Creatinine (0.6-1.4) mg/dl POC Glucose 163 H 193 H 244 H (70-99) (1) Fluid overload Hypervolemia type: unspecified Qualified Code(s): E87.70 - Fluid overload, unspecified
[2018-10-05 07:43] LABS: BUN Creatinine Ratio 12.3 (10-20); Calcium 9.1 mg/dl (8.5-10.1); Creatinine Clr Calc Pharmacy 31.8 ml/min; Est GFR (African American) 25.5; Potassium 3.5 mmol/L (3.5-5.1)
[2018-10-05 07:47] LABS: Hematocrit (blood only) 30.6 % (42-52); Hemoglobin 9.6 g/dL (14.0-18.0); Mean Corpuscular Hgb Conc 31.4 g/dL (32-36); Mean Corpuscular Volume 77.1 fL (80-100); Mean Platelet Volume 9.9 fL (7.4-10.4); Nucleated RBC # (auto) 0.05 K/uL (0-0); Nucleated RBC % (auto) 0.9 %; Platelet Count 130 K/uL (130-400); RDW Coefficient of Variation 14.5 % (11.5-14.5); RDW Standard Deviation 41.2 fL (36.4-46.3); Red Blood Count 3.97 M/uL (4.7-6.1); White Blood Count 4.96 K/uL (4.8-10.8)
[2018-10-05] MEDS ORDERED: TORSEMIDE 10 MG TAB PO SCH (09:00)
[2018-10-05] MEDS: METOPROLOL SUCC 50MG EXT REL TAB PO SCH (09:04)
[2018-10-05] MEDS: ISOSORBIDE DINITRATE 10 MG TAB PO SCH ×3 (09:04→16:54)
[2018-10-05] MEDS: CHOLECALCIFEROL 1,000 UNITS TAB PO SCH (09:05)
[2018-10-05] MEDS: ASPIRIN 81 MG ECTAB PO SCH (09:06)
[2018-10-05] MEDS: GABAPENTIN 100 MG CAP PO SCH ×3 (09:06→16:53)
[2018-10-05] MEDS: FUROSEMIDE 20 MG in SYRINGE 0 ML IV SCH (09:06)
[2018-10-05] MEDS: PANTOprazole 40 MG TAB PO SCH (09:06)
[2018-10-05] MEDS: INSULIN ASPART 100 UNITS/ML 3 ML PEN SC SCH ×4 (09:32→20:36)
--- NOTE | 2018-10-05 11:08 | Cardiology Progress Note ---
Date of Service October 05, 2018 Assessment & Plan (1) Acute on chronic systolic HF (heart failure): Symptoms improving overnight with gentle diuresis. We will continue with nephrology assistance Fluid restriction of 1500 ml Sodium restriction < 1500 mg Monitor renal function closely. Continue current dose of IV furosemide May need to consider slightly increased dose of torsemide on discharge. Appreciate Nephro input (2) CKD (chronic kidney disease): Creatinine appears at baseline Nephrology consulted. Monitor (3) Peripheral arterial disease: Patient reports worsening claudication symptoms x 1 month. No pain at rest. Arterial duplex demonstrates significant stenosis of the left lower extremity. Will need to see vascular surgery as outpatient. In the meantime, continue ASA and Crestor (4) Aortic stenosis: Moderate to borderline severe noted by last echo in 07/2018. Repeat echo ordered as outpatient in 6 months. Need to consider future intervention, however work up limited by underlying CKD (5) Chronic anemia: at baseline. Monitor (6) PAF (paroxysmal atrial fibrillation): Currently NSR. Continue Metoprolol and coumadin (7) ARPIT (obstructive sleep apnea): Recent sleep study demonstrates severe ARPIT. Per patient, intolerant of CPAP. Recommend retrial of therapy to aid with CHF Physical Exam Physical Exam: Constitutional: WD/WN, vitals as above + obese; no acute distress Eyes: PERRL, conjunctivae normal, anicteric sclerae ENMT: external ear and nose normal, oropharynx normal Neck: trachea midline, no thyromegaly Respiratory: Auscultation: + diminished lung sounds; no rales, no rhonchi and no wheezes Cardiovascular: Rate/Rhythm: regular rate and regular rhythm Heart Sounds: + murmur (III/ systolic murmur best heard left sternal border) Vessels: + JVD Extremities: + edema (1-2+) Gastrointestinal (Abdomen): Mildly distended normal bowel sounds, soft, nontender, no hepatosplenomegaly Musculoskeletal: no cyanosis or clubbing, extremities motor strength 5/5 Psychiatric: A+Ox3, euthymic affect Results & Data Vital Signs (Past 12 Hours) Vital Signs Temp Pulse Resp BP BP Pulse Ox 10/05/18 10:55 36.7 C 65 18 122/70 93 10/05/18 06:51 36.7 C 74 16 158/86 H 94 10/05/18 04:06 36.3 C L 69 18 137/79 96 10/04/18 23:28 36.8 C 62 16 161/83 H 96 Laboratory Results Laboratory Results - last 24 hr 10/04/18 10/04/18 10/04/18 11:20 11:20 16:08 WBC RBC Hgb Hct MCV MCH MCHC RDW Std Deviation RDW Coeff of Joey Plt Count MPV Absolute Nucleated RBC Nucleated RBC % (auto) PT INR Sodium Potassium Chloride Carbon Dioxide Anion Gap BUN Creatinine Est Cr Clr Drug Dosing Est GFR ( Amer) Est GFR (Non-Af Amer) BUN/Creatinine Ratio Glucose POC Glucose 214 H 198 H Calcium Troponin I 0.045 10/04/18 10/05/18 10/05/18 20:06 05:25 05:25 WBC 4.96 RBC 3.97 L Hgb 9.6 L Hct 30.6 L MCV 77.1 L MCH 24.2 L MCHC 31.4 L RDW Std Deviation 41.2 RDW Coeff of Joey 14.5 Plt Count 130 MPV 9.9 Absolute Nucleated RBC 0.05 H Nucleated RBC % (auto) 0.9 PT INR Sodium 144 Potassium 3.5 Chloride 107 Carbon Dioxide 31 Anion Gap 6.0 BUN 35 H Creatinine 2.88 H Est Cr Clr Drug Dosing 31.8 Est GFR ( Amer) 25.5 Est GFR (Non-Af Amer) 22.0 BUN/Creatinine Ratio 12.3 Glucose 80 POC Glucose 185 H Calcium 9.1 Troponin I 10/05/18 10/05/18 05:30 07:03 WBC RBC Hgb Hct MCV MCH MCHC RDW Std Deviation RDW Coeff of Joey Plt Count MPV Absolute Nucleated RBC Nucleated RBC % (auto) PT 21.4 H INR 2.2 H Sodium Potassium Chloride Carbon Dioxide Anion Gap BUN Creatinine Est Cr Clr Drug Dosing Est GFR ( Amer) Est GFR (Non-Af Amer) BUN/Creatinine Ratio Glucose POC Glucose 77 Calcium Troponin I (1) CKD (chronic kidney disease) Chronic kidney disease stage: unspecified stage Qualified Code(s): N18.9 - Chronic kidney disease, unspecified (2) Aortic stenosis Cardiac valve disease etiology: nonrheumatic Qualified Code(s): I35.0 - Nonrheumatic aortic (valve) stenosis
[2018-10-05] MEDS ORDERED: FUROSEMIDE 40 MG/4 ML VIAL IV STA (16:15)
--- NOTE | 2018-10-05 16:18 | Hospitalist Progress Note ---
Date of Service October 05, 2018 Assessment & Plan (1) Acute on chronic systolic HF (heart failure): -admission with shortness of breath and weight gain although admission chest X ray without overt edema -received 40 mg Lasix x1 dose in the ED on presentation on 10/04/18, admission weight is 119.9 kg, then given Lasix 20 mg IV BID with home dose torsemide held -10/05/18: Patient was reweighed standing this afternoon and weight of 115.3 kilogram which is around 254 pounds. In patient's estimation he reports he was once 228 pounds which is around 103 kg although the last time he had that recorded weight in hospital records was back in March 2018. Patient continues to breathe on room air. He appears to be surprised when medical doctor pointed out that the soda at the bedside has salt content in it. Have reaffirmed with patient that foods and drinks have ingredients listed and that sodium means salt and he should restrict that intake. Patient already got Lasix 20 mg IV x 1 today. Instead of the IV BID dosing as started yesterday, the patient will get additional 40 mg IV lasix today. will re-assess patient's weight tomorrow. give 40 meq potassium as serum potassium 3.5 and patient on IV diuretic -Fluid restriction of 1500 ml - restriction < 1500 mg Chronic kidney disease stage IV , GFR 15-29 ml/min: -since april, his creatinine has run 2.8-3.4, w/ progressive chronic renal renal failure and often quite labile function. creatinine currently at 2.88 Aortic stenosis: -Moderate to borderline severe noted by last echo in 07/2018. Repeat echo ordered as outpatient in 6 months. -Need to consider future intervention, however work up limited by underlying CKD PAF (paroxysmal atrial fibrillation) Anticoagulated by anticoagulation therapy with coumadin history of nonocclusive coronary artery disease -A left subclavian biventricular pacer/AICD is in place -Continue Metoprolol and coumadin Peripheral arterial disease: -Patient reports worsening claudication symptoms x 1 month. -Arterial duplex demonstrates significant stenosis of the left lower extremity. -Will need to see vascular surgery as outpatient. 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 A1c was 10.2%. He most likely needs additional insulin post-discharge. -continue home Lantus 50 units at bedtime and insulin sliding scale for now ARPIT (obstructive sleep apnea) / History of mild chronic obstructive pulmonary disease and pulmonary hypertension -Recent sleep study demonstrates severe ARPIT. Per patient, intolerant of CPAP. -Continue home inhalers. Deep venous thrombosis prophylaxis, on Coumadin. INR therapeutic. Subjective Patient was reweighed standing this afternoon and weight of 115.3 kilogram which is around 254 pounds. In patient's estimation he reports he was once 228 pounds which is around 103 kg although the last time he had that recorded weight in hospital records was back in March 2018. Patient continues to breathe on room air. He appears to be surprised when medical doctor pointed out that the soda at the bedside has salt content in it. Have reaffirmed with patient that foods and drinks have ingredients listed and that sodium means salt and he should restrict that intake. Patient already got Lasix 20 mg IV x 1 today. Instead of the IV BID dosing as started yesterday, the patient will get additional 40 mg IV lasix today. will re-assess patient's weight tomorrow. no chest pain, no distress, no abdomen pain, no dizziness, no lightheadedness Physical Exam Constitutional: + obese Eyes: PERRL, conjunctivae normal, anicteric sclerae EOM intact bilaterally ENMT: external ear and nose normal, oropharynx normal Neck: trachea midline, no thyromegaly normal visual inspection Respiratory: normal respiratory effort, lungs clear to auscultation Cardiovascular: Rate/Rhythm: regular rate and regular rhythm Gastrointestinal (Abdomen): Inspection/Auscultation: normal bowel sounds Musculoskeletal: Head/Neck/Chest: normocephalic and head atraumatic Neurologic: PERRL, EOMI, accommodation nl, no face palsy, no dysarthria CN's II-XI intact bilaterally Psychiatric: A+Ox3, euthymic affect Results & Data Vital Signs (Past 12 Hours) Vital Signs Temp Pulse Resp BP BP Pulse Ox 10/05/18 15:27 36.7 C 60 18 148/78 H 94 10/05/18 10:55 36.7 C 65 18 122/70 93 10/05/18 06:51 36.7 C 74 16 158/86 H 94
[2018-10-05] MEDS ORDERED: POTASSIUM CHLORIDE 20 MEQ TABCR PO STA (16:26)
[2018-10-05] MEDS: WARFARIN SOD 5 MG TAB PO SCH (16:48)
[2018-10-05] MEDS: ROSUVASTATIN CALCIUM 20 MG TAB PO SCH (20:35)
[2018-10-05] MEDS: INSULIN GLARGINE SOLOSTAR 100 UNITS/ML 3 ML PEN SQ SCH (20:36)
[2018-10-05] MEDS ORDERED: FUROSEMIDE 40 MG in SYRINGE 0 ML IV SCH (21:00)
[2018-10-06 06:08] LABS: INR 1.9 (0.9-1.1); Prothrombin Time 18.8 Seconds (9.0-12.0)
[2018-10-06] MEDS: ISOSORBIDE DINITRATE 10 MG TAB PO SCH ×2 (06:19→12:24)
[2018-10-06 06:36] LABS: Calcium 8.9 mg/dl (8.5-10.1); Creatinine Clr Calc Pharmacy 31.1 ml/min; Est GFR (Non-African American) 21.6; Magnesium 2.4 mg/dl (1.8-2.4); Potassium 3.8 mmol/L (3.5-5.1)
[2018-10-06] MEDS: ASPIRIN 81 MG ECTAB PO SCH (08:13)
[2018-10-06] MEDS: PANTOprazole 40 MG TAB PO SCH (08:13)
[2018-10-06] MEDS: GABAPENTIN 100 MG CAP PO SCH ×2 (08:13→12:24)
[2018-10-06] MEDS: METOPROLOL SUCC 50MG EXT REL TAB PO SCH (08:13)
[2018-10-06] MEDS: CHOLECALCIFEROL 1,000 UNITS TAB PO SCH (08:13)
--- NOTE | 2018-10-06 08:19 | Nephrology Progress Note ---
Date of Service October 06, 2018 Assessment & Plan (1) CKD (chronic kidney disease) stage 4, GFR 15-29 ml/min: since april, his creatinine has run 2.8-3.4, w/ progressive chronic renal renal failure and often quite labile function. currently at 2.9, so within baseline. his chemistries are acceptable; bp is controlled today though has been intermittently elevated; he has at least mild volume overload and moderate/ stable anemia . His urine consistently has glucosuria and proteinuria from his uncontrolled DM; no evidence of infection or GN. -continue OP non diuretic BP meds and monitor BP -daily bmp -recommend lasix 20 mg iv bid17 but may after am dose consider switching to OP torsemide >> recommend 5 -7 days weekly at d/c not 4 days -moderate anemia, mild thrombocytopenia at baseline -will need OP f/u for PAD -he has f/u appt w/ me CKD clinic 10[facility]12 in [facility] (2) Fluid overload: -admission weight 119.9; trending down to 113.2 today; goal wt for d/c would be somewhere in range of 113-115 kg depending on sx and other clinical status; need to take care as pt tends to have orthostatic hypontension/ dizziness -agree w/ lasix IV bid17 at 20 mg for now/ as above -cont <2 gm daily Na diet and 1.5L FR Subjective breathing can still be touchy at times but overall ok; walks halls/unit w/ some L leg cramp but else ok; not dizzy; no voiding c/o, no edema, no chest discomfort ate full brkfst; had extr 20 mg iv lasix last evening Review of Systems Review of Systems: All systems reviewed & are unremarkable except as noted in HPI & below Physical Exam Constitutional: well developed, well nourished and + obese; no acute distress on RA in bed Eyes: EOM intact bilaterally ENMT: Ears: no external ear abnormality Nose: no external nose abnormality Mouth: + dry oral mucous membranes Neck: no nuchal rigidity Respiratory: normal respiratory effort Auscultation: + diminished lung sounds Cardiovascular: Rate/Rhythm: regular rate Heart Sounds: + murmur Extremities: no edema Gastrointestinal (Abdomen): Inspection/Auscultation: normal bowel sounds Percussion/Palpation: abdomen soft; abdomen nontender Musculoskeletal: Extremities: strength 5/5 throughout Skin: no rashes, warm and dry Neurologic: mathew, fluent speech, no tremor Psychiatric: A+Ox3, euthymic affect Eye Contact: good eye contact Speech: normal rate/rhythm/volume of speech Affect: euthymic affect Results & Data Vital Signs (Past 12 Hours) Vital Signs Temp Pulse Pulse Resp BP Pulse Ox 10/06/18 07:26 36.7 C 63 20 163/80 H 99 10/06/18 04:10 36.5 C 62 16 148/70 H 99 10/05/18 23:46 87 10/05/18 23:00 36.9 C 63 16 153/81 H 93 Laboratory Results Abnormal lab results 10/05/18 10/05/18 10/05/18 Range/Units 10:52 16:27 20:16 PT (9.0-12.0) Seconds INR (0.9-1.1) Chloride (98-107) mmol/L BUN (7-18) mg/dl Creatinine (0.6-1.4) mg/dl POC Glucose 163 H 193 H 244 H (70-99) 10/06/18 10/06/18 Range/Units 05:49 05:49 PT 18.8 H (9.0-12.0) Seconds INR 1.9 H (0.9-1.1) Chloride 109 H (98-107) mmol/L BUN 35 H (7-18) mg/dl Creatinine 2.93 H (0.6-1.4) mg/dl POC Glucose (70-99) (1) Fluid overload Hypervolemia type: unspecified Qualified Code(s): E87.70 - Fluid overload, unspecified
[2018-10-06] MEDS ORDERED: FUROSEMIDE 20 MG in SYRINGE 0 ML IV SCH (09:00)
--- NOTE | 2018-10-06 10:50 | Cardiology Progress Note ---
Date of Service October 06, 2018 Assessment & Plan (1) Acute on chronic systolic HF (heart failure): Symptoms improved with diuresis now approaching baseline Fluid restriction of 1500 ml Sodium restriction < 1500 mg Monitor renal function closely. Continue current dose of IV furosemide May need to consider slightly increased dose of torsemide on discharge. Appreciate Nephro input (2) CKD (chronic kidney disease): Creatinine appears at baseline Nephrology consulted. Monitor (3) Peripheral arterial disease: Patient reports worsening claudication symptoms x 1 month. No pain at rest. Arterial duplex demonstrates the left posterior tibial small vessel stenosis with intact distal pulses Would not warrant an intervention In the meantime, continue ASA and Crestor (4) Aortic stenosis: Moderate to borderline severe noted by last echo in 07/2018. Repeat echo ordered as outpatient in 6 months. Need to consider future intervention, however work up limited by underlying CKD (5) Chronic anemia: at baseline. Monitor (6) PAF (paroxysmal atrial fibrillation): Currently NSR. Continue Metoprolol and coumadin (7) ARPIT (obstructive sleep apnea): Recent sleep study demonstrates severe ARPIT. Per patient, intolerant of CPAP. Recommend retrial of therapy to aid with CHF Subjective Patient was seen and examined, chart medications telemetry reviewed. Breathing is improved has had good diuresis overnight. No chest pains or discomfort. No dizziness or lightheadedness ambulatory in room. Review of Systems Review of Systems: All systems reviewed & are unremarkable except as noted in HPI & below Physical Exam Constitutional: WD/WN, vitals as above ENMT: external ear and nose normal, oropharynx normal Neck: trachea midline, no thyromegaly Respiratory: normal respiratory effort, lungs clear to auscultation Cardiovascular: Rate/Rhythm: regular rate and regular rhythm Heart Sounds: + murmur (Grade 2/6 systolic murmur); no gallop Vessels: normal peripheral pulses Extremities: + pedal edema (Trace only) Chest (Breasts): Chest: + pacemaker (Without tenderness) Gastrointestinal (Abdomen): normal bowel sounds, soft, nontender, no hepatosplenomegaly Skin: no rashes, warm and dry Results & Data Vital Signs (Past 12 Hours) Vital Signs Temp Pulse Pulse Resp BP Pulse Ox 10/06/18 08:00 62 10/06/18 07:26 36.7 C 63 20 163/80 H 99 10/06/18 04:10 36.5 C 62 16 148/70 H 99 10/05/18 23:46 87 10/05/18 23:00 36.9 C 63 16 153/81 H 93 Laboratory Results Laboratory Results - last 24 hr 10/05/18 10/05/18 10/05/18 10:52 16:27 20:16 PT INR Sodium Potassium Chloride Carbon Dioxide Anion Gap BUN Creatinine Est Cr Clr Drug Dosing Est GFR ( Amer) Est GFR (Non-Af Amer) BUN/Creatinine Ratio Glucose POC Glucose 163 H 193 H 244 H Calcium Magnesium 10/06/18 10/06/18 10/06/18 05:49 05:49 07:25 PT 18.8 H INR 1.9 H Sodium 145 Potassium 3.8 Chloride 109 H Carbon Dioxide 31 Anion Gap 5.0 BUN 35 H Creatinine 2.93 H Est Cr Clr Drug Dosing 31.1 Est GFR ( Amer) 25.0 Est GFR (Non-Af Amer) 21.6 BUN/Creatinine Ratio 12.0 Glucose 79 POC Glucose 74 Calcium 8.9 Magnesium 2.4 (1) CKD (chronic kidney disease) Chronic kidney disease stage: unspecified stage Qualified Code(s): N18.9 - Chronic kidney disease, unspecified (2) Aortic stenosis Cardiac valve disease etiology: nonrheumatic Qualified Code(s): I35.0 - Nonrheumatic aortic (valve) stenosis
[2018-10-06] MEDS: INSULIN ASPART 100 UNITS/ML 3 ML PEN SC SCH ×2 (10:54→12:24)
--- NOTE | 2018-10-06 11:15 | Hospitalist Progress Note ---
Date of Service October 06, 2018 Assessment & Plan (1) Acute on chronic systolic HF (heart failure): -admission with shortness of breath and weight gain although admission chest X ray without overt edema -received 40 mg Lasix x1 dose in the ED on presentation on 10/04/18, admission weight is 119.9 kg, then given Lasix 20 mg IV BID with home dose torsemide held -10/05/18: Patient was reweighed standing this afternoon and weight of 115.3 kilogram which is around 254 pounds. In patient's estimation he reports he was once 228 pounds which is around 103 kg although the last time he had that recorded weight in hospital records was back in March 2018. Patient continues to breathe on room air. He appears to be surprised when medical doctor pointed out that the soda at the bedside has salt content in it. Have reaffirmed with patient that foods and drinks have ingredients listed and that sodium means salt and he should restrict that intake. Patient already got Lasix 20 mg IV x 1 on 10/05/18 then additional 40 mg IV lasix on 10/06/18. given 40 meq potassium as serum potassium 3.5 and patient on IV diuretic -10/06/18; Lasix 20 mg given on . AM. Weight is 114 kg. discharge on torsemide 10 mg as a daily dose of diuretic rather than 4 times a week when at home; Patient should take torsemide 10 mg daily and have renal function labs and weights checked by primary care doctor/nephrology clinic. -Fluid restriction of 1500 ml - salt restriction of no more than 1500 mg daily Chronic kidney disease stage IV , GFR 15-29 ml/min: -since april, his creatinine has run 2.8-3.4, w/ progressive chronic renal renal failure and often quite labile function. creatinine currently at 2.88 Aortic stenosis: -Moderate to borderline severe noted by last echo in 07/2018. Repeat echo ordered as outpatient in 6 months. -Need to consider future intervention, however work up limited by underlying CKD -outpatient cardiology follow ups for pacemaker and aortic stenosis and other cardiac issues including follow up echocardiogram PAF (paroxysmal atrial fibrillation) Anticoagulated by anticoagulation therapy with coumadin history of nonocclusive coronary artery disease -A left subclavian biventricular pacer/AICD is in place -Continue Metoprolol and coumadin -Patient also on coumadin because of history of atrial fibrillation and should have INR rechecked on next clinic visit. Discharge day INR is 1.9 Peripheral arterial disease: -Patient reports worsening claudication symptoms x 1 month. -Arterial ultrasound 1. Hemodynamically significant stenosis suspected in the proximal to midportion of the left posterior tibial artery. 2. Hemodynamically significant stenosis in the left dorsalis pedis artery. 3. Normal toe brachial indices bilaterally. -does not appear to have any emergent signs of loss of limb function and discomfort tolerated without acute pain medications -outpatient followup, Patient may need referral by primary doctor to a vascular surgeon for Peripheral arterial disease of left leg -continue ASA and Crestor Chronic anemia: -stable Type 2 diabetes mellitus hyperglycemia with longterm 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 insulin -He reports BG values frequently in 200-300's at home. HbA1c 10.2%. -continue home Lantus 50 units at bedtime -Patient should take short acting insulin with meals change from lispro 7 units of aspart with breakfast and 14 units at lunch and 14 units at dinner to: 5 UNITS with breakfast and 14 UNITS with lunch and 19 UNITS with dinner; a sliding scale insulin was recommended to patient by special education paraeducator, Patient can continue Lantus 50 units qhs; Patient advised to check blood sugars from his usual regimen of once in the morning to twice a day ARPIT (obstructive sleep apnea) / History of mild chronic obstructive pulmonary disease and pulmonary hypertension -Recent sleep study demonstrates severe ARPIT. Per patient, intolerant of CPAP. -Continue home inhalers. Deep venous thrombosis prophylaxis, on Coumadin Main Discharge Diagnosis Acute on chronic systolic HF (heart failure, Chronic kidney disease stage IV , GFR 15-29 ml/min, PAF (paroxysmal atrial fibrillation), on coumadin anticoagulation, Peripheral arterial disease (left leg), Type 2 diabetes mellitus hyperglycemia with longterm 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 insulin Discharge Instructions Patient should take short acting insulin with meals change from lispro 7 units of aspart with breakfast and 14 units at lunch and 14 units at dinner to: 5 UNITS with breakfast and 14 UNITS with lunch and 19 UNITS with dinner. a sliding scale insulin was recommended to patient by special education paraeducator Patient can continue Lantus 50 units qhs Patient advised to check blood sugars from his usual regimen of once in the morning to twice a day Patient should take torsemide 10 mg daily and have renal function labs and weights checked by primary care doctor/nephrology clinic. Discharge weight when standing is 114 kg Nephrology appointment 10/11/2018 1:50 PM Provider Kathleen Bosch MD Department Nephrology [facility] Primary Care 10/13/2018 11:00 AM Provider Mirlande Pickett MD Department Internal Medicine [facility] 10/19/2018 9:20 AM Provider Mirlande Pickett MD Department Internal Medicine [facility] Patient may need referral by primary doctor to a vascular surgeon for Peripheral arterial disease of left leg Patient also on coumadin because of history of atrial fibrillation and should have INR rechecked on next clinic visit. Discharge day INR is 1.9 outpatient cardiology follow ups for pacemaker and aortic stenosis and other cardiac issues including follow up echocardiogram 11/22/2018 11:00 AM Provider Pacer Humberto [facility] Department Cardiology, [facility] 12/14/2018 4:00 PM Provider Billy Chery PA-C Department Cardiology [facility] CHF Instructions Call your Primary Care doctor if any of the following symptoms or problems start or get worse: * Shortness of breath or difficulty breathing * Wake up at night short of breath * Chest pain * Cough * Swelling of your hands, feet, or legs * More fatigued or tired with your normal activity * Palpitations - sudden fast heart beats WEIGHT * Weigh yourself every morning after using the bathroom. * Use the same scale. * Wear the same amount of clothing. * Write your weight down on a chart. * Call your Primary Care doctor if you gain more than 2-3 pounds in 1-2 days. MEDICATIONS * Use this discharge instruction sheet for medication instructions. * Take your medications at the time your doctor ordered. * Do not skip a dose of your medicines. * If you miss a dose of medicine, take it as soon as possible, but DO NOT DOUBLE A DOSE. * Read your medicine information when you get home. * Know all of the side effects of your medicine. If in doubt, ask your pharmacist * Call your Primary Care doctor's office if you have any side effects. * Be sure all of your doctors know what medicine and herbs you take (including cold, flu, and herbal medicine). Take the following with you to your follow-up doctor appointments: * Weight Chart * Medication List * List of questions Do not drink excessive alcohol, beer or wine. Subjective Lasix 20 mg given on . AM. Weight is 114 kg. discharge on torsemide 10 mg as a daily dose of diuretic rather than 4 times a week when at home; Patient should take torsemide 10 mg daily and have renal function labs and weights checked by primary care doctor/nephrology clinic. patient has been ambulatory. does not appear to have any emergent signs of loss of limb function and discomfort tolerated without acute pain medications outpatient followup, Patient may need referral by primary doctor to a vascular surgeon for Peripheral arterial disease of left leg. discussed with patient at length about fluid status management and diabetes management no acute shortness of breath. lungs sounds are clear, no leg edema. no headache. no dizziness, no vomiting Physical Exam Constitutional: + obese Eyes: PERRL, conjunctivae normal, anicteric sclerae EOM intact bilaterally ENMT: external ear and nose normal, oropharynx normal Neck: trachea midline, no thyromegaly normal visual inspection Respiratory: normal respiratory effort, lungs clear to auscultation Cardiovascular: Rate/Rhythm: regular rate and regular rhythm Gastrointestinal (Abdomen): Inspection/Auscultation: normal bowel sounds Musculoskeletal: Head/Neck/Chest: normocephalic and head atraumatic Neurologic: PERRL, EOMI, accommodation nl, no face palsy, no dysarthria CN's II-XI intact bilaterally Psychiatric: A+Ox3, euthymic affect Results & Data Vital Signs (Past 12 Hours) Vital Signs Temp Pulse Pulse Resp BP Pulse Ox 10/06/18 10:56 36.6 C 63 18 139/83 96 10/06/18 08:00 62 10/06/18 07:26 36.7 C 63 20 163/80 H 99 10/06/18 04:10 36.5 C 62 16 148/70 H 99 10/05/18 23:46 87
--- NOTE | 2018-10-06 11:35 | Discharge Summary ---
Date of Service October 06, 2018 Admission HPI Per Admitting Provider CHIEF COMPLAINT: Shortness of breath. HISTORY OF PRESENT ILLNESS: This is a 63-year-old male with past medical history significant for chronic systolic and diastolic heart failure with EF of 45-50% previously as low as 30%, chronic left bundle branch block, status post biventricular pacemaker and defibrillator implantation in June of 2017. Moderate CAD by catheterization in June 2016, moderate aortic wall stenosis, atrial fibrillation on chronic Coumadin anticoagulation, stage IV chronic kidney disease. Baseline creatinine around 2.6 to 3. Hypertension, status post adrenalectomy at [facility]; hyperlipidemia; anemia of chronic kidney disease; chronic thrombocytopenia; COPD; sleep apnea; pulmonary hypertension; type 2 diabetes; history of pulmonary nodules, presents with shortness of breath. The patient is currently on torsemide 10 mg daily for 4 times a week. He says he gained about 3-4 pounds in last 1-2 days getting short of breath on exertion. He can walk 50 yards before he gets short of breath. He also complains of claudication pain of right calf pain when he is ambulating. Denies any cough, no fever, no chills. Has some chest pain earlier in the day but right now there is no chest pain, no headaches, no dizziness, no blurred vision, no earache, no runny nose, no sore throat, no difficulty swallowing. Appetite is okay. Orthopnea present. No swelling in the legs. No rash. No nausea, no abdominal pain. Normal bowel and bladder movements. No black stools or hematuria. Currently resting comfortably and hemodynamically stable and saturating okay on room air. He says he had sleep study and recommended to have CPAP but he could not tolerate CPAP and used to use 2 liters of oxygen at nighttime and lately is using 3 liters while sleeping. ALLERGIES: No known drug allergies. PAST MEDICAL HISTORY: As mentioned above. PAST SURGICAL HISTORY: Cardiac catheterization, lumbar cervical spine injection, status post biventricular pacemaker and defibrillator, skin cancer behind the left ear, status post adrenalectomy. MEDICATIONS: The patient is on torsemide 10 mg p.o. 4 times a week, Protonix 40 mg p.o. daily, Coumadin 5 mg as directed, Breo Ellipta 1 puff daily, hydralazine 25 mg p.o. t.i.d., Humalog t.i.d., Lantus 50 units daily, gabapentin 100 mg p.o. t.i.d., Isordil 20 mg p.o. t.i.d., Crestor 40 mg p.o. daily, Flonase 2 sprays into each nostril daily, Toprol-XL 100 mg p.o. daily, DuoNeb 4 times a day p.r.n., albuterol 2 puffs every 4 hours p.r.n., oxygen 2-3 liters at bedtime, vitamin D 2000 units p.o. daily and aspirin 81 mg p.o. daily. FAMILY HISTORY: Significant for mother had heart disorder. Brother has lung cancer, diabetes. Sister has lung cancer. SOCIAL HISTORY: and lives with his . he chews tobacco. No smoking history. Alcohol rare. No drug use. Ambulates without any help. REVIEW OF SYMPTOMS: As per HPI. Rest of review of symptoms negative. Admission Exam Per Admitting Provider PHYSICAL EXAMINATION: GENERAL: The patient is of moderate build, not in acute distress. VITAL SIGNS: Temperature 36.7, pulse 61, respiratory rate 20, blood pressure 164/97, oxygen 97% room air. HEENT: No pallor, no icterus. Pupils equal, round, reactive to light. NECK: No JVD, no neck masses, no carotid bruit. CARDIOVASCULAR: S1, S2 heard, regular rate and rhythm. Ejection systolic murmur in aortic area. RESPIRATORY SYSTEM: Normal AP diameter. No accessory muscle use. Mild occasional expiratory wheezing. No crackles. ABDOMEN: Bowel sounds present. Nontender. No distention. CENTRAL NERVOUS SYSTEM: Cranial nerves II-XII are grossly intact. Nonfocal. EXTREMITIES: No edema, no erythema. Principal Diagnosis Acute on chronic systolic HF (heart failure, Chronic kidney disease stage IV , GFR 15-29 ml/min, PAF (paroxysmal atrial fibrillation), on coumadin anticoagulation, Peripheral arterial disease (left leg), Type 2 diabetes mellitus hyperglycemia with oil heaterman 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 insulin Discharge Exam Constitutional + obese Eyes PERRL, conjunctivae normal, anicteric sclerae EOM intact bilaterally ENMT external ear and nose normal, oropharynx normal Neck trachea midline, no thyromegaly normal visual inspection Respiratory normal respiratory effort, lungs clear to auscultation Cardiovascular Rate/Rhythm: regular rate and regular rhythm Gastrointestinal (Abdomen) Inspection/Auscultation: normal bowel sounds Musculoskeletal Head/Neck/Chest: normocephalic and head atraumatic Neurologic PERRL, EOMI, accommodation nl, no face palsy, no dysarthria CN's II-XI intact bilaterally Psychiatric A+Ox3, euthymic affect Discharge Data Allergies Allergy/AdvReac Type Severity Reaction Status Date / Time No Known Allergies Allergy Verified 10/03/18 21:11 Consultations 10/03/18 22:58 ED Decision to Admit Stat 10/03/18 23:20 Consult Case Management - Discharge Planning Routine 10/04/18 08:00 Consult Cardiology Routine Consult Nephrology Routine Ordered Studies 10/03/18 23:38 US arterial duplex LE BI Routine Hospital Course (1) Acute on chronic systolic HF (heart failure): -admission with shortness of breath and weight gain although admission chest X ray without overt edema -received 40 mg Lasix x1 dose in the ED on presentation on 10/04/18, admission weight is 119.9 kg, then given Lasix 20 mg IV BID with home dose torsemide held -10/05/18: Patient was reweighed standing this afternoon and weight of 115.3 kilogram which is around 254 pounds. In patient's estimation he reports he was once 228 pounds which is around 103 kg although the last time he had that recorded weight in hospital records was back in March 2018. Patient continues to breathe on room air. He appears to be surprised when medical doctor pointed out that the soda at the bedside has salt content in it. Have reaffirmed with patient that foods and drinks have ingredients listed and that sodium means salt and he should restrict that intake. Patient already got Lasix 20 mg IV x 1 on 10/05/18 then additional 40 mg IV lasix on 10/06/18. given 40 meq potassium as serum potassium 3.5 and patient on IV diuretic -10/06/18; Lasix 20 mg given on AM. Weight is 114 kg. discharge on torsemide 10 mg as a daily dose of diuretic rather than 4 times a week when at home; Patient should take torsemide 10 mg daily and have renal function labs and weights checked by primary care doctor/nephrology clinic. -Fluid restriction of 1500 ml - salt restriction of no more than 1500 mg daily Chronic kidney disease stage IV , GFR 15-29 ml/min: -since april, his creatinine has run 2.8-3.4, w/ progressive chronic renal renal failure and often quite labile function. creatinine currently at 2.88 Aortic stenosis: -Moderate to borderline severe noted by last echo in 07/2018. Repeat echo ordered as outpatient in 6 months. -Need to consider future intervention, however work up limited by underlying CKD -outpatient cardiology follow ups for pacemaker and aortic stenosis and other cardiac issues including follow up echocardiogram PAF (paroxysmal atrial fibrillation) Anticoagulated by anticoagulation therapy with coumadin history of nonocclusive coronary artery disease -A left subclavian biventricular pacer/AICD is in place -Continue Metoprolol and coumadin -Patient also on coumadin because of history of atrial fibrillation and should have INR rechecked on next clinic visit. Discharge day INR is 1.9 Peripheral arterial disease: -Patient reports worsening claudication symptoms x 1 month. -Arterial ultrasound 1. Hemodynamically significant stenosis suspected in the proximal to midportion of the left posterior tibial artery. 2. Hemodynamically significant stenosis in the left dorsalis pedis artery. 3. Normal toe brachial indices bilaterally. -does not appear to have any emergent signs of loss of limb function and discomfort tolerated without acute pain medications -outpatient followup, Patient may need referral by primary doctor to a vascular surgeon for Peripheral arterial disease of left leg -continue ASA and Crestor Chronic anemia: -stable Type 2 diabetes mellitus hyperglycemia with correction 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 insulin -He reports BG values frequently in 200-300's at home. HbA1c 10.2%. -continue home Lantus 50 units at bedtime -Patient should take short acting insulin with meals change from lispro 7 units of aspart with breakfast and 14 units at lunch and 14 units at dinner to: 5 UNITS with breakfast and 14 UNITS with lunch and 19 UNITS with dinner; a sliding scale insulin was recommended to patient by condenser winder, Patient can continue Lantus 50 units qhs; Patient advised to check blood sugars from his usual regimen of once in the morning to twice a day ARPIT (obstructive sleep apnea) / History of mild chronic obstructive pulmonary disease and pulmonary hypertension -Recent sleep study demonstrates severe ARPIT. Per patient, intolerant of CPAP. -Continue home inhalers. Deep venous thrombosis prophylaxis, on Coumadin Main Discharge Diagnosis Acute on chronic systolic HF (heart failure, Chronic kidney disease stage IV , GFR 15-29 ml/min, PAF (paroxysmal atrial fibrillation), on coumadin anticoagulation, Peripheral arterial disease (left leg), Type 2 diabetes mellitus hyperglycemia with oil heaterman 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 insulin Discharge Instructions Patient should take short acting insulin with meals change from lispro 7 units of aspart with breakfast and 14 units at lunch and 14 units at dinner to: 5 UNITS with breakfast and 14 UNITS with lunch and 19 UNITS with dinner. a sliding scale insulin was recommended to patient by condenser winder Patient can continue Lantus 50 units qhs Patient advised to check blood sugars from his usual regimen of once in the morning to twice a day Patient should take torsemide 10 mg daily and have renal function labs and weights checked by primary care doctor/nephrology clinic. Discharge weight when standing is 114 kg Nephrology appointment 10/11/2018 1:50 PM Provider Kathleen Bosch MD Department Nephrology [facility] Primary Care 10/13/2018 11:00 AM Provider Mirlande Pickett MD Department Internal Medicine [facility] 10/19/2018 9:20 AM Provider Mirlande Pickett MD Department Internal Medicine [facility] Patient may need referral by primary doctor to a vascular surgeon for Peripheral arterial disease of left leg Patient also on coumadin because of history of atrial fibrillation and should have INR rechecked on next clinic visit. Discharge day INR is 1.9 outpatient cardiology follow ups for pacemaker and aortic stenosis and other cardiac issues including follow up echocardiogram 11/22/2018 11:00 AM Provider Pacer Clinic [facility] Department Cardiology, [facility] 12/14/2018 4:00 PM Provider Billy Chery PA-C Department Cardiology [facility] CHF Instructions Call your Primary Care doctor if any of the following symptoms or problems start or get worse: * Shortness of breath or difficulty breathing * Wake up at night short of breath * Chest pain * Cough * Swelling of your hands, feet, or legs * More fatigued or tired with your normal activity * Palpitations - sudden fast heart beats WEIGHT * Weigh yourself every morning after using the bathroom. * Use the same scale. * Wear the same amount of clothing. * Write your weight down on a chart. * Call your Primary Care doctor if you gain more than 2-3 pounds in 1-2 days. MEDICATIONS * Use this discharge instruction sheet for medication instructions. * Take your medications at the time your doctor ordered. * Do not skip a dose of your medicines. * If you miss a dose of medicine, take it as soon as possible, but DO NOT DOUBLE A DOSE. * Read your medicine information when you get home. * Know all of the side effects of your medicine. If in doubt, ask your pharmacist * Call your Primary Care doctor's office if you have any side effects. * Be sure all of your doctors know what medicine and herbs you take (including cold, flu, and herbal medicine). Take the following with you to your follow-up doctor appointments: * Weight Chart * Medication List * List of questions Do not drink excessive alcohol, beer or wine. Total Time Total Time Spent Total Time Spent (In Minutes): 40 minutes Total Time Includes: Examination of the Patient, Discharge Planning, Medication Reconciliation and Communication With Other Providers Discharge Plan Discharge Items Patient Disposition: Home - Self-Care Reason For Visit: SOB Discharge Diagnosis: Acute on chronic systolic HF (heart failure, Chronic kidney disease stage IV , GFR 15-29 ml/min, PAF (paroxysmal atrial fibrillation), on coumadin anticoagulation, Peripheral arterial disease (left leg), Type 2 diabetes mellitus hyperglycemia with correction 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 insulin Condition: Good Discharge Goals: Improve disease control Activity: Resume your previous activity Non-emergency contact: Primary Care Provider Call non-emergency contact if: you have any medication questions Follow-up/Referrals: Mirlande Melton MD [Primary Care Provider] - Diet: Heart Healthy and Low Sodium (2gm) Fluids: 1500ml (6 cups) Diet Comment: keep to less than 1500 mg of total salt intake Addtl Provider Instructions: Discharge Instructions Patient should take short acting insulin with meals change from lispro 7 units of aspart with breakfast and 14 units at lunch and 14 units at dinner to: 5 UNITS with breakfast and 14 UNITS with lunch and 19 UNITS with dinner; a sliding scale insulin was recommended to patient by condenser winder Patient can continue Lantus 50 units qhs Patient advised to check blood sugars from his usual regimen of once in the morning to twice a day Patient should take torsemide 10 mg daily and have renal function labs and weights checked by primary care doctor/nephrology clinic. Discharge weight when standing is 114 kg Nephrology appointment 10/11/2018 1:50 PM Provider Kathleen Bosch MD Department Nephrology [facility] Primary Care 10/13/2018 11:00 AM Provider Mirlande Pickett MD Department Internal Medicine [facility] 10/19/2018 9:20 AM Provider Mirlande Pickett MD Department Internal Medicine [facility] Patient may need referral by primary doctor to a vascular surgeon for Peripheral arterial disease of left leg Patient also on coumadin because of history of atrial fibrillation and should have INR rechecked on next clinic visit. Discharge day INR is 1.9 outpatient cardiology follow ups for pacemaker and aortic stenosis and other cardiac issues including follow up echocardiogram 11/22/2018 11:00 AM Provider Adrián Paul [facility] Department Cardiology, [facility] 12/14/2018 4:00 PM Provider Billy Chery PA-C Department Cardiology [facility] CHF Instructions Call your Primary Care doctor if any of the following symptoms or problems start or get worse: * Shortness of breath or difficulty breathing * Wake up at night short of breath * Chest pain * Cough * Swelling of your hands, feet, or legs * More fatigued or tired with your normal activity * Palpitations - sudden fast heart beats WEIGHT * Weigh yourself every morning after using the bathroom. * Use the same scale. * Wear the same amount of clothing. * Write your weight down on a chart. * Call your Primary Care doctor if you gain more than 2-3 pounds in 1-2 days. MEDICATIONS * Use this discharge instruction sheet for medication instructions. * Take your medications at the time your doctor ordered. * Do not skip a dose of your medicines. * If you miss a dose of medicine, take it as soon as possible, but DO NOT DOUBLE A DOSE. * Read your medicine information when you get home. * Know all of the side effects of your medicine. If in doubt, ask your pharmacist * Call your Primary Care doctor's office if you have any side effects. * Be sure all of your doctors know what medicine and herbs you take (including cold, flu, and herbal medicine). Take the following with you to your follow-up doctor appointments: * Weight Chart * Medication List * List of questions Do not drink excessive alcohol, beer or wine. Prescriptions: New torsemide 10 mg Tablet 10 mg PO QAM 30 Days Qty: 30 RF: 0 insulin lispro 100 unit/mL insulin pen 5 units SQ UD 30 Days Qty: 15 RF: 0 Continued isosorbide dinitrate 10 mg Tablet 20 mg PO TIDM RF: 0 metoprolol succinate [Toprol XL] 100 mg Tablet Extended Release 24 Hr 100 mg PO DAILY RF: 0 aspirin 81 mg Tablet,Delayed Release (Dr/Ec) 81 mg PO DAILY RF: 0 pantoprazole [Protonix] 40 mg Tablet,Delayed Release (Dr/Ec) 40 mg PO DAILY RF: 0 rosuvastatin [Crestor] 40 mg Tablet 40 mg PO HS RF: 0 Lantus Solostar U-100 Insulin 100 unit/mL (3 mL) Insulin Pen 50 units SUBCUT HS RF: 0 cholecalciferol (vitamin D3) [Vitamin D3] 2,000 unit Capsule 2,000 unit PO DAILY RF: 0 hydralazine 25 mg tablet 25 mg PO TIDM RF: 0 gabapentin 100 mg Capsule 100 mg PO TIDM RF: 0 ipratropium-albuterol 0.5 mg-3 mg(2.5 mg base)/3 mL Solution For Nebulization 3 ml INHALATION QID PRN (Reason: Shortness Of Breath Or Wheezing) RF: 0 albuterol sulfate [ProAir HFA] 90 mcg/actuation Hfa Aerosol Inhaler 2 puff INHALATION Q4H PRN (Reason: Shortness Of Breath Or Wheezing) RF: 0 fluticasone propionate [Flonase Allergy Relief] 50 mcg/actuation [place],Suspens ion 2 spray INTRANASAL DAILY PRN (Reason: Nasal Congestion) RF: 0 Breo Ellipta 100-25 mcg/dose Blister With Device 1 inh INHALATION DAILY RF: 0 warfarin 5 mg tablet 5 mg PO DAILY RF: 0 Discontinued insulin lispro [Humalog KwikPen Insulin] 100 unit/mL Insulin Pen 7 units SUBCUT TIDM RF: 0 torsemide 10 mg tablet 10 mg PO [id number] RF: 0 Stand-Alone Forms: [facility] Discharge Orders: Discharge Order (Routine); Ordered 10/06/18 Ordered By: Richard Larkin Admission Data Admit Date/Time: 10/03/18 22:05 Attending Provider: Richard Larkin Admit Provider: Yovanny Desai Primary Care Provider: Mirlande Melton Other Providers: Yovanny Desai ; Gerald Mittal ; Parish Sethi ; Pillo Graves ; Nirav Wild ; Christian Zurita ; Billy Chery ; Isabel Bergman ; Roxann Pulido ; Kathleen Bosch ; Moses Ramos ; Tushar Manley I ; Sammie Meneses ; Marielena Bar ; Hermilo Miller Service: Telemetry
[2018-10-06] MEDS ORDERED: FUROSEMIDE 40 MG in SYRINGE 0 ML IV SCH (21:00)
[2018-10-07] MEDS ORDERED: TORSEMIDE 10 MG TAB PO SCH (09:00)
== END 2018-10-06 13:15 | disposition home or self-care (01) | DRG 291 ==
LOC: ED 19:33 → 2S 22:05

== ENCOUNTER 2018-12-24 20:36 | Inpatient (IN) ==
[2018-12-24] MEDS ORDERED: FUROSEMIDE 40 MG/4 ML VIAL IV STA (20:47)
[2018-12-24] MEDS ORDERED: INSULIN HUMAN REGULAR PER UNIT 5 UNITS in SYRINGE 0 ML IV STA (20:47)
[2018-12-24 21:02] LABS: Basophils # (auto) 0.01 K/uL (0-0.2); Basophils % (auto) 0.2 %; Hematocrit (blood only) 31.8 % (42-52); Hemoglobin 9.8 g/dL (14.0-18.0); Immature Granulocytes # (auto) 0.02 K/uL (0.00-0.02); Immature Granulocytes % (auto) 0.4 %; Lymphocytes # (auto) 0.82 K/uL (1.2-3.4); Lymphocytes % (auto) 16.3 %; Mean Corpuscular Hemoglobin 23.4 pg (25-34); Mean Corpuscular Hgb Conc 30.8 g/dL (32-36); Mean Corpuscular Volume 75.9 fL (80-100); Monocytes # (auto) 0.33 K/uL (0.11-0.59); Monocytes % (auto) 6.5 %; Neutrophils # (auto) 3.76 K/uL (1.4-6.5); Neutrophils % (auto) 74.6 %; Platelet Count 113 K/uL (130-400); RDW Coefficient of Variation 15.9 % (11.5-14.5); RDW Standard Deviation 44.5 fL (36.4-46.3); Red Blood Count 4.19 M/uL (4.7-6.1); White Blood Count 5.04 K/uL (4.8-10.8)
[2018-12-24] MEDS ORDERED: INSULIN HUMAN REGULAR PER UNIT 5 UNITS in SYRINGE 4.95 ML IV STA (21:06)
[2018-12-24 21:15] LABS: INR 2.5 (0.9-1.1); Partial Thromboplastin Ratio 1.3; Prothrombin Time 23.8 Seconds (9.0-12.0)
--- NOTE | 2018-12-24 21:18 | XRay Report ---
SINGLE VIEW CHEST CLINICAL HISTORY: Dyspnea. FINDINGS: An AP, portable, upright chest radiograph is compared to study dated 10/03/2018. The examina tion is degraded by portable technique and apical lordotic positioning. A 3-lead cardiac AICD is unch anged in position. The heart is enlarged and there is atherosclerotic calcification of the thoracic a yamilet. The pulmonary vasculature is noncongested. The lungs and pleural spaces are clear. No pneumotho rax is seen. The skeletal structures are osteopenic. The bony thorax is grossly intact. IMPRESSION: 1. Cardiomegaly and AICD with no radiographic evidence of congestive failure. 2. No airspace consolidation or large pleural effusion is identified. Electronically signed by: Guerrero Hebert M.D. 12/24/2018 9:17 PM
[2018-12-24 21:42] LABS: Albumin Globulin Ratio 0.9 (0.9-2); Albumin Level 3.3 gm/dl (3.4-5.0); BUN Creatinine Ratio 17.3 (10-20); Bilirubin,Total 0.4 mg/dl (0.2-1); Calcium 8.7 mg/dl (8.5-10.1); Creatinine Clr Calc Pharmacy 25.6 ml/min; Est GFR (Non-African American) 17.2; Globulin 3.6 gm/dl (2.5-4.0); Potassium 4.9 mmol/L (3.5-5.1); Total Protein 6.9 gm/dl (6.4-8.2); Troponin I 0.035 ng/ml (0-0.045)
[2018-12-24 21:51] LABS: Appearance Urine Clear (Clear); Bacteria Urine Automated Negative (Negative); Bilirubin Urine Negative (Negative); Blood Urine Negative (Negative); Color Urine Yellow; Glucose Urine UA 3+ (Negative); Ketones Urine Negative (Negative); Leukocyte Esterase Urine Negative (Negative); Nitrite Urine Negative (Negative); Protein Urine 2+ (Negative); RBC Urine Automated 0-4 /hpf (0-4); Specific Gravity Urine 1.026 (1.000-1.030); Urobilinogen Urine Negative (Negative); pH Urine 5.5 (4.5-7.5)
[2018-12-24 21:51] LABS: Beta-Hydroxybutyrate 1.15 mg/dl (0.2-2.81)
--- NOTE | 2018-12-24 23:56 | Emergency Department Note ---
Entered by Renetta Moreno acting as a scribe for Nirav St MD History of Present Illness General Chief complaint: Hyperglycemia Source: patient History of Present Illness Onset (ago): hour(s) 3 Location: chest Pain Consistency: + intermittent Quality: + sharp Exacerbated By: + other (standing up ) Associated symptoms: + denies other symptoms (dizziness) and + shortness of breath; no fever/chills and no nausea/vomiting Treatments prior to arrival: other (insulin) The patient is a 63 year old male who presents to the Emergency Room with complaints of hyperglycemia, shortness of breath and dizziness. These symptoms started tonight about 3 hours ago. The patient stated that he felt lightheaded when he stood up, and he almost fell over but a friend caught him. The patient has a pacemaker, and about a week ago he noticed some short, sharp pains in his chest. He states that he feels a lot less lightheaded when sitting, and in the hospital bed now he currently states that he has no chest pain. He denies fever and vomiting. The patient is on insulin, which he took before he came in today. He also has a history of tobacco use. He states that he has a problem with his aortic valve. Home Medications Home Medications Medication Instructions Recorded Confirmed Type Lantus Solostar U-100 Insulin 52 units SUBCUT HS 02/05/18 12/24/18 History aspirin 81 mg PO DAILY 02/05/18 12/24/18 History cholecalciferol (vitamin D3) 2,000 unit PO DAILY 02/05/18 12/24/18 History [Vitamin D3] isosorbide dinitrate 20 mg PO TIDM 02/05/18 12/24/18 History metoprolol succinate [Toprol XL] 100 mg PO DAILY 02/05/18 12/24/18 History pantoprazole [Protonix] 40 mg PO DAILY 02/05/18 12/24/18 History rosuvastatin [Crestor] 40 mg PO HS 02/05/18 12/24/18 History gabapentin 100 mg PO TIDM 05/14/18 12/24/18 History hydralazine 25 mg PO TIDM 05/20/18 12/24/18 History Breo Ellipta 1 inh INHALATION DAILY 08/01/18 12/24/18 History albuterol sulfate [ProAir HFA] 2 puff INHALATION Q4H PRN 08/01/18 12/24/18 History fluticasone propionate [Flonase 2 spray INTRANASAL DAILY PRN 08/01/18 12/24/18 History Allergy Relief] ipratropium-albuterol 3 ml INHALATION QID PRN 08/01/18 12/24/18 History warfarin 5 mg PO DAILY 10/03/18 12/24/18 History insulin lispro [Humalog KwikPen 7 unit SUBCUT QDB 12/24/18 12/24/18 History Insulin] insulin lispro [Humalog KwikPen 14 unit SUBCUT QDD 12/24/18 12/24/18 History Insulin] insulin lispro [Humalog KwikPen 14 unit SUBCUT QDL 12/24/18 12/24/18 History Insulin] torsemide 10 mg PO DAILY 12/24/18 12/24/18 History Allergies Allergy/AdvReac Type Severity Reaction Status Date / Time No Known Allergies Allergy Verified 12/24/18 23:01 Past Med/Surg History Medical History Diabetic neuropathy (Chronic) Chronic systolic (congestive) heart failure (Chronic) Aortic stenosis (Chronic) Nocturnal hypoxia (Chronic) on 2L NC O2 HS GERD (gastroesophageal reflux disease) (Chronic) Thrombocytopenia (Chronic) Chronic anemia (Chronic) Asthma (Chronic) DM type 2 (diabetes mellitus, type 2) (Chronic) Dyslipidemia (Chronic) Hypertension (Chronic) CAD (coronary artery disease) (Chronic) "nonobstructive" Nonischemic cardiomyopathy (Chronic) "EF 40-45% with mod on 02/04" LBBB (left bundle branch block) (Chronic) Atrial fibrillation (Chronic) on chronic anticoagulation Surgical History H/O cardiac catheterization (Chronic) Non nonobstructive CAD on 2017 cardiac cath Presence of combination internal cardiac defibrillator (ICD) and pacemaker (Chronic) Family History Other Diabetes Hypertension Lung cancer Social History Preferred Language: Yoruba Communication Ability: Effective Visual Impairment: Limited Instructional Writer Required: No Beliefs That Will Affect Care: None marital status: Current Living Situation: Family current occupational status: retired 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 and A total of 10 systems reviewed and were otherwise negative Physical Exam Vital Signs Vital Signs - 24 hr 12/24/18 20:39 12/24/18 20:42 12/24/18 20:43 Sepsis Recent Fever Within 48 Hours No Sepsis Action Taken by Nursing No Action Required Pulse Rate - Lying Pulse Rate - Sitting Pulse Rate - Standing Pulse Rate 64 62 67 Pulse Rate [Right Finger] Pulse Rate from SpO2 Sensor 63 63 Pulse Rhythm Regular Pulse Strength Normal Respiratory Rate 24 22 19 Respiratory Effort / Characteristics Non-Labored Respiratory Depth Normal Blood Pressure - Lying Blood Pressure - Sitting Blood Pressure- Standing Blood Pressure 181/83 H 181/83 H Blood Pressure [Right Arm] Blood Pressure Mean 115 115 Blood Pressure Mean [Right Arm] Blood Pressure Position Lying Blood Pressure Position [Right Arm] Pulse Oximetry 100 99 91 Oxygen Delivery Method Room Air 12/24/18 21:00 12/24/18 21:05 12/24/18 21:06 Sepsis Recent Fever Within 48 Hours Sepsis Action Taken by Nursing Pulse Rate - Lying 67 Pulse Rate - Sitting 65 Pulse Rate - Standing 65 Pulse Rate 62 70 72 Pulse Rate [Right Finger] Pulse Rate from SpO2 Sensor 63 64 66 Pulse Rhythm Pulse Strength Respiratory Rate 17 21 24 Respiratory Effort / Characteristics Respiratory Depth Blood Pressure - Lying 162/85 H Blood Pressure - Sitting 157/84 H Blood Pressure- Standing 142/72 H Blood Pressure 162/85 H 157/84 H Blood Pressure [Right Arm] Blood Pressure Mean 110 108 Blood Pressure Mean [Right Arm] Blood Pressure Position Blood Pressure Position [Right Arm] Pulse Oximetry 100 100 99 Oxygen Delivery Method 12/24/18 21:07 12/24/18 21:30 12/24/18 21:53 Sepsis Recent Fever Within 48 Hours Sepsis Action Taken by Nursing Pulse Rate - Lying Pulse Rate - Sitting Pulse Rate - Standing Pulse Rate 61 60 Pulse Rate [Right Finger] Pulse Rate from SpO2 Sensor 59 L 60 Pulse Rhythm Pulse Strength Respiratory Rate 16 17 Respiratory Effort / Characteristics Respiratory Depth Blood Pressure - Lying Blood Pressure - Sitting Blood Pressure- Standing Blood Pressure 142/72 H 145/92 H Blood Pressure [Right Arm] Blood Pressure Mean 95 109 Blood Pressure Mean [Right Arm] Blood Pressure Position Blood Pressure Position [Right Arm] Pulse Oximetry 100 100 Oxygen Delivery Method 12/24/18 21:54 12/24/18 22:00 12/24/18 22:30 Sepsis Recent Fever Within 48 Hours Sepsis Action Taken by Nursing Pulse Rate - Lying Pulse Rate - Sitting Pulse Rate - Standing Pulse Rate 63 60 Pulse Rate [Right Finger] 60 Pulse Rate from SpO2 Sensor 60 Pulse Rhythm Pulse Strength Respiratory Rate 18 19 10 L Respiratory Effort / Characteristics Respiratory Depth Blood Pressure - Lying Blood Pressure - Sitting Blood Pressure- Standing Blood Pressure Blood Pressure [Right Arm] 145/92 H Blood Pressure Mean Blood Pressure Mean [Right Arm] 109 Blood Pressure Position Blood Pressure Position [Right Arm] Lying Pulse Oximetry 100 96 Oxygen Delivery Method 12/24/18 23:00 12/24/18 23:30 Sepsis Recent Fever Within 48 Hours Sepsis Action Taken by Nursing Pulse Rate - Lying Pulse Rate - Sitting Pulse Rate - Standing Pulse Rate 64 63 Pulse Rate [Right Finger] Pulse Rate from SpO2 Sensor 63 63 Pulse Rhythm Pulse Strength Respiratory Rate 20 21 Respiratory Effort / Characteristics Respiratory Depth Blood Pressure - Lying Blood Pressure - Sitting Blood Pressure- Standing Blood Pressure Blood Pressure [Right Arm] Blood Pressure Mean Blood Pressure Mean [Right Arm] Blood Pressure Position Blood Pressure Position [Right Arm] Pulse Oximetry 94 94 Oxygen Delivery Method Constitutional: Vital signs reviewed. Eyes: Pupils are equal round reactive to light. Conjunctiva are noninjected. ENT: Pharynx is clear without erythema or exudate. Mucous membranes are moist. Neck supple without meningeal signs. Respiratory: Bibasilar crackles. Breath sounds are equal bilaterally. Cardiovascular: Systolic murmur in right second ICS. Regular rate. GI: Soft, nondistended and nontender. Bowel sounds are present. Musculoskeletal: No peripheral edema. No lower extremity tenderness. Integumentary: No cyanosis. Neurological: The patient is awake and alert. No focal deficits. Psychiatric: Normal affect. Course 2040: Past medical records reviewed. The patient was evaluated in room C11B. A complete history and physical exam was performed. 0: I rechecked on the patient, who said he was feeling a little better. 0: I spoke with Dr. Desai, who agreed to take over care of the patient. The patient verbally expressed understanding and agreement of the treatment plan. The patient will be evaluated for further treatment. Administered Medications Discontinued Medications Furosemide (Lasix) 40 mg IV NOW STA Stop: 12/24/18 20:48 Last Admin: 12/24/18 21:17 Dose: 40 mg Documented by: [id number] Insulin Human Regular 5 units/ (Syringe) 0.05 mls @ 0 mls/hr IV ONE STA Stop: 12/24/18 20:48 Last Admin: 12/24/18 21:20 Dose: Not Given Documented by: [id number] Insulin Human Regular 5 units/ (Syringe) 5 mls @ 0 mls/hr IV NOW STA Stop: 12/24/18 21:07 Last Admin: 12/24/18 21:16 Dose: 5 mls/hr Documented by: [id number] Cosigned by: [id number] Medical Decision Making Differential Diagnosis Differential diagnosis includes: CHF exacerbation, pulmonary edema, pneumonia, dehydration, PAM, orthostatic hypotension, infection, aortic stenosis Medical Records Attestation: I reviewed the patient's medical records. I did perform a limited focused review of portions of the patient's old chart on the electronic medical record. The patient was admitted to the hospital for heart failure in September this year. Home Medications Current Medication List: was personally reviewed by me Laboratory Data Attestation: I reviewed the patient's lab results. Result diagrams: 12/24/18 20:46 12/24/18 20:46 Lab Results 12/24/18 12/24/18 12/24/18 Range/Units 20:41 20:46 20:46 WBC 5.04 (4.8-10.8) K/uL RBC 4.19 L (4.7-6.1) M/uL Hgb 9.8 L (14.0-18.0) g/dL Hct 31.8 L (42-52) % MCV 75.9 L (80-100) fL MCH 23.4 L (25-34) pg MCHC 30.8 L (32-36) g/dL RDW Std Deviation 44.5 (36.4-46.3) fL RDW Coeff of Joey 15.9 H (11.5-14.5) % Plt Count 113 L (130-400) K/uL MPV 10.0 (7.4-10.4) fL Immature Gran % (Auto) 0.4 % Neut % (Auto) 74.6 % Lymph % (Auto) 16.3 % Nobles % (Auto) 6.5 % Eos % (Auto) 2.0 % Baso % (Auto) 0.2 % Immature Gran # (Auto) 0.02 (0.00-0.02) K/uL Neut # (Auto) 3.76 (1.4-6.5) K/uL Lymph # (Auto) 0.82 L (1.2-3.4) K/uL Nobles # (Auto) 0.33 (0.11-0.59) K/uL Eos # (Auto) 0.10 (0-0.5) K/uL Baso # (Auto) 0.01 (0-0.2) K/uL PT 23.8 H (9.0-12.0) Seconds INR 2.5 H (0.9-1.1) APTT 34.0 H (21.0-31.0) Seconds PTT Ratio 1.3 Sodium (136-145) mmol/L Potassium (3.5-5.1) mmol/L Chloride (98-107) mmol/L Carbon Dioxide (21-32) mmol/L Anion Gap (3-11) BUN (7-18) mg/dl Creatinine (0.6-1.4) mg/dl Est Cr Clr Drug Dosing ml/min Est GFR ( Amer) Est GFR (Non-Af Amer) BUN/Creatinine Ratio (10-20) Glucose (70-99) mg/dl POC Glucose 559 H* (70-99) Calcium (8.5-10.1) mg/dl Total Bilirubin (0.2-1) mg/dl AST (15-37) U/L ALT (12-78) U/L Alkaline Phosphatase (45-117) U/L Troponin I (0-0.045) ng/ml NT-Pro-B Natriuret Pep (0-900) pg/ml Total Protein (6.4-8.2) gm/dl Albumin (3.4-5.0) gm/dl Globulin (2.5-4.0) gm/dl Albumin/Globulin Ratio (0.9-2) Beta-Hydroxybutyric Acd (0.2-2.81) mg/dl Urine Color Urine Appearance (Clear) Urine pH (4.5-7.5) Ur Specific [place] (1.000-1.030) Urine Protein (Negative) Urine Glucose (UA) (Negative) Urine Ketones (Negative) Urine Blood (Negative) Urine Nitrite (Negative) Urine Bilirubin (Negative) Urine Urobilinogen (Negative) Ur Leukocyte Esterase (Negative) Urine WBC (Auto) (0-5) /hpf Urine RBC (Auto) (0-4) /hpf U Hyaline Cast (Auto) (0-5) /lpf U Epithel Cells (Auto) (0-5) /lpf Urine Bacteria (Auto) (Negative) 12/24/18 12/24/18 12/24/18 Range/Units 20:46 21:20 21:52 WBC (4.8-10.8) K/uL RBC (4.7-6.1) M/uL Hgb (14.0-18.0) g/dL Hct (42-52) % MCV (80-100) fL MCH (25-34) pg MCHC (32-36) g/dL RDW Std Deviation (36.4-46.3) fL RDW Coeff of Ojey (11.5-14.5) % Plt Count (130-400) K/uL MPV (7.4-10.4) fL Immature Gran % (Auto) % Neut % (Auto) % Lymph % (Auto) % Nobles % (Auto) % Eos % (Auto) % Baso % (Auto) % Immature Gran # (Auto) (0.00-0.02) K/uL Neut # (Auto) (1.4-6.5) K/uL Lymph # (Auto) (1.2-3.4) K/uL Nobles # (Auto) (0.11-0.59) K/uL Eos # (Auto) (0-0.5) K/uL Baso # (Auto) (0-0.2) K/uL PT (9.0-12.0) Seconds INR (0.9-1.1) APTT (21.0-31.0) Seconds PTT Ratio Sodium 133 L (136-145) mmol/L Potassium 4.9 (3.5-5.1) mmol/L Chloride 101 (98-107) mmol/L Carbon Dioxide 25 (21-32) mmol/L Anion Gap 8.0 (3-11) BUN 61 H (7-18) mg/dl Creatinine 3.53 H (0.6-1.4) mg/dl Est Cr Clr Drug Dosing 25.6 ml/min Est GFR ( Amer) 20.0 Est GFR (Non-Af Amer) 17.2 BUN/Creatinine Ratio 17.3 (10-20) Glucose 551 H* (70-99) mg/dl POC Glucose 576 H* (70-99) Calcium 8.7 (8.5-10.1) mg/dl Total Bilirubin 0.4 (0.2-1) mg/dl AST 21 (15-37) U/L ALT 22 (12-78) U/L Alkaline Phosphatase 78 (45-117) U/L Troponin I 0.035 (0-0.045) ng/ml NT-Pro-B Natriuret Pep 5022 H (0-900) pg/ml Total Protein 6.9 (6.4-8.2) gm/dl Albumin 3.3 L (3.4-5.0) gm/dl Globulin 3.6 (2.5-4.0) gm/dl Albumin/Globulin Ratio 0.9 (0.9-2) Beta-Hydroxybutyric Acd 1.15 (0.2-2.81) mg/dl Urine Color Yellow Urine Appearance Clear (Clear) Urine pH 5.5 (4.5-7.5) Ur Specific [place] 1.026 (1.000-1.030) Urine Protein 2+ H (Negative) Urine Glucose (UA) 3+ H (Negative) Urine Ketones Negative (Negative) Urine Blood Negative (Negative) Urine Nitrite Negative (Negative) Urine Bilirubin Negative (Negative) Urine Urobilinogen Negative (Negative) Ur Leukocyte Esterase Negative (Negative) Urine WBC (Auto) 1-5 (0-5) /hpf Urine RBC (Auto) 0-4 (0-4) /hpf U Hyaline Cast (Auto) 1-5 (0-5) /lpf U Epithel Cells (Auto) 10-20 H (0-5) /lpf Urine Bacteria (Auto) Negative (Negative) 12/24/18 Range/Units 22:53 WBC (4.8-10.8) K/uL RBC (4.7-6.1) M/uL Hgb (14.0-18.0) g/dL Hct (42-52) % MCV (80-100) fL MCH (25-34) pg MCHC (32-36) g/dL RDW Std Deviation (36.4-46.3) fL RDW Coeff of Joey (11.5-14.5) % Plt Count (130-400) K/uL MPV (7.4-10.4) fL Immature Gran % (Auto) % Neut % (Auto) % Lymph % (Auto) % Nobles % (Auto) % Eos % (Auto) % Baso % (Auto) % Immature Gran # (Auto) (0.00-0.02) K/uL Neut # (Auto) (1.4-6.5) K/uL Lymph # (Auto) (1.2-3.4) K/uL Nobles # (Auto) (0.11-0.59) K/uL Eos # (Auto) (0-0.5) K/uL Baso # (Auto) (0-0.2) K/uL PT (9.0-12.0) Seconds INR (0.9-1.1) APTT (21.0-31.0) Seconds PTT Ratio Sodium (136-145) mmol/L Potassium (3.5-5.1) mmol/L Chloride (98-107) mmol/L Carbon Dioxide (21-32) mmol/L Anion Gap (3-11) BUN (7-18) mg/dl Creatinine (0.6-1.4) mg/dl Est Cr Clr Drug Dosing ml/min Est GFR ( Amer) Est GFR (Non-Af Amer) BUN/Creatinine Ratio (10-20) Glucose (70-99) mg/dl POC Glucose 490 H* (70-99) Calcium (8.5-10.1) mg/dl Total Bilirubin (0.2-1) mg/dl AST (15-37) U/L ALT (12-78) U/L Alkaline Phosphatase (45-117) U/L Troponin I (0-0.045) ng/ml NT-Pro-B Natriuret Pep (0-900) pg/ml Total Protein (6.4-8.2) gm/dl Albumin (3.4-5.0) gm/dl Globulin (2.5-4.0) gm/dl Albumin/Globulin Ratio (0.9-2) Beta-Hydroxybutyric Acd (0.2-2.81) mg/dl Urine Color Urine Appearance (Clear) Urine pH (4.5-7.5) Ur Specific [place] (1.000-1.030) Urine Protein (Negative) Urine Glucose (UA) (Negative) Urine Ketones (Negative) Urine Blood (Negative) Urine Nitrite (Negative) Urine Bilirubin (Negative) Urine Urobilinogen (Negative) Ur Leukocyte Esterase (Negative) Urine WBC (Auto) (0-5) /hpf Urine RBC (Auto) (0-4) /hpf U Hyaline Cast (Auto) (0-5) /lpf U Epithel Cells (Auto) (0-5) /lpf Urine Bacteria (Auto) (Negative) Imaging Data Radiologist's Impression: Radiology results as stated below per my review and the radiologist's interpretation: SINGLE VIEW CHEST CLINICAL HISTORY: Dyspnea. FINDINGS: An AP, portable, upright chest radiograph is compared to study dated 10/03/2018. The examination is degraded by portable technique and apical lordotic positioning. A 3-lead cardiac AICD is unchanged in position. The heart is enlarged and there is atherosclerotic calcification of the thoracic aorta. The pulmonary vasculature is noncongested. The lungs and pleural spaces are clear. No pneumothorax is seen. The skeletal structures are osteopenic. The bony thorax is grossly intact. IMPRESSION: 1. Cardiomegaly and AICD with no radiographic evidence of congestive failure. 2. No airspace consolidation or large pleural effusion is identified. Electronically signed by: Guerrero Hebert M.D. 12/24/2018 9:17 PM ECG Data Attestation: I personally reviewed and interpreted this ECG as follows: Indication: chest pain Rate (beats per minute): 63 Rhythm: other (paced rhythm) Findings: + other (QRS is 188 ms) and + PVC Blood Pressure Blood Pressure Findings: Elevated blood pressure Blood Pressure Disposition: Referred to patients primary care provider [facility] Narrative I did evaluate the patient as noted above. The patient is presenting with shortness of breath and an episode of lightheadedness where he almost fell down. Currently he feels better but also states that his blood sugars have been really high. He denies any fevers. He did have chest pain a week ago but has not had any since. He describes it as a very brief sharp chest pain on the left side. On exam he has bibasilar crackles and has a history of CHF. IV access was established. The patient was placed on a continuous residential monitor. I did treat him with Lasix IV. I did order and personally review the patient's 12- lead EKG as described above. His twelve-lead EKG demonstrates a paced rhythm. I did order and personally reviewed the images of the patient's chest x-ray as described above. No pneumonia or overt pulmonary edema is noted. I did order a urine analysis. There is no evidence of infection. I did order and review the patient's blood work as noted in the electronic medical record. His creatinine is elevated above baseline. He does have chronic kidney disease. He has hyperglycemia without signs of DKA. Troponin is negative. BNP is elevated. INR is therapeutic. I did treat the patient with insulin IV. I did discuss the test results with patient. He will be hospitalized for further evaluation. Repeat blood sugar was still elevated was given additional insulin IV. Impression & Plan Hyperglycemia, Weakness, CHF (congestive heart failure), [id number] kidney injury, Anticoagulated on Coumadin, Chest pain Discharge Plan Visit Data Chief Complaint: Hyperglycemia ED Provider: Nirav St Discharge Problem: Hyperglycemia, Weakness, CHF (congestive heart failure), [id number] kidney injury, Anticoagulated on Coumadin, Chest pain Forms Stand Alone Forms: My [facility] Prescriptions Prescriptions: No Action isosorbide dinitrate 10 mg Tablet 20 mg PO TIDM RF: 0 metoprolol succinate [Toprol XL] 100 mg Tablet Extended Release 24 Hr 100 mg PO DAILY RF: 0 aspirin 81 mg Tablet,Delayed Release (Dr/Ec) 81 mg PO DAILY RF: 0 pantoprazole [Protonix] 40 mg Tablet,Delayed Release (Dr/Ec) 40 mg PO DAILY RF: 0 rosuvastatin [Crestor] 40 mg Tablet 40 mg PO HS RF: 0 Lantus Solostar U-100 Insulin 100 unit/mL (3 mL) Insulin Pen 52 units SUBCUT HS RF: 0 cholecalciferol (vitamin D3) [Vitamin D3] 2,000 unit Capsule 2,000 unit PO DAILY RF: 0 hydralazine 25 mg tablet 25 mg PO TIDM RF: 0 gabapentin 100 mg Capsule 100 mg PO TIDM RF: 0 ipratropium-albuterol 0.5 mg-3 mg(2.5 mg base)/3 mL Solution For Nebulization 3 ml INHALATION QID PRN (Reason: Shortness Of Breath Or Wheezing) RF: 0 albuterol sulfate [ProAir HFA] 90 mcg/actuation Hfa Aerosol Inhaler 2 puff INHALATION Q4H PRN (Reason: Shortness Of Breath Or Wheezing) RF: 0 fluticasone propionate [Flonase Allergy Relief] 50 mcg/actuation Lena,Suspension 2 spray INTRANASAL DAILY PRN (Reason: Nasal Congestion) RF: 0 Breo Ellipta 100-25 mcg/dose Blister With Device 1 inh INHALATION DAILY RF: 0 warfarin 5 mg tablet 5 mg PO DAILY RF: 0 torsemide 10 mg Tablet 10 mg PO DAILY RF: 0 insulin lispro [Humalog KwikPen Insulin] 100 unit/mL Insulin Pen 14 unit SUBCUT QDL RF: 0 insulin lispro [Humalog KwikPen Insulin] 100 unit/mL Insulin Pen 7 unit SUBCUT QDB RF: 0 insulin lispro [Humalog KwikPen Insulin] 100 unit/mL Insulin Pen 14 unit SUBCUT QDD RF: 0 Discharge Problem: CHF (congestive heart failure) Qualifiers: Heart failure type: unspecified Heart failure chronicity: unspecified Qualified Code(s): I50.9 - Heart failure, unspecified [id number] kidney injury Qualifiers: Acute renal failure type: unspecified Chronic kidney disease stage: unspecified stage Qualified Code(s): N17.9 - Acute kidney failure, unspecified Chest pain Qualifiers: Chest pain type: unspecified Qualified Code(s): R07.9 - Chest pain, unspecified The scribe's documentation has been prepared under my direction and personally reviewed by me in its entirety. I confirm that the note above accurately reflects all work, treatment, procedures, and medical decision making performed by me.
[2018-12-25] MEDS ORDERED: ALBUT/IPRATROP 3MG/0.5MG NEB 3 ML VIAL INH PRN (03:06)
[2018-12-25] MEDS ORDERED: ACETAMINOPHEN 325 MG TAB PO PRN (03:06)
[2018-12-25] MEDS ORDERED: ONDANSETRON INJ 2 MG/ML 2 ML VIAL IV PRN (03:06)
[2018-12-25] MEDS ORDERED: ALBUTEROL HFA 8 GM INHALER INH PRN (03:06)
[2018-12-25] MEDS ORDERED: FLUTICASONE PROPIONATE NA SPR 16 GM BTL PRN (03:06)
[2018-12-25] MEDS ORDERED: POLYETHYLENE (MIRALAX) 17 GM PACK PO PRN (03:06)
[2018-12-25] MEDS ORDERED: NITROGLYCERIN SL 0.4 MG/TAB TAB SL PRN (03:06)
[2018-12-25] MEDS ORDERED: PHARMACY GLYCEMIC MGMT CONSULT PRN (03:25)
[2018-12-25] MEDS ORDERED: GLUCAGON FOR INJ 1 MG VIAL SQ PRN (04:00)
[2018-12-25] MEDS ORDERED: INSULIN GLARGINE SOLOSTAR 100 UNITS/ML 3 ML PEN SC ONE (04:00)
[2018-12-25] MEDS ORDERED: CARBOHYDRATES FOR HYPOGLYCEMIA PO PRN (04:00)
[2018-12-25] MEDS ORDERED: GLUCOSE 10 TABS/TUBE PO PRN (04:00)
[2018-12-25] MEDS ORDERED: INSULIN HUMAN REGULAR PER UNIT 5 UNITS in SYRINGE 4.95 ML IV ONE (04:00)
[2018-12-25] MEDS ORDERED: DEXTROSE 50% 50 ML SYRINGE IV PRN (04:00)
--- NOTE | 2018-12-25 05:35 | History and Physical Report ---
DATE OF ADMISSION: 12/25/2018 CHIEF COMPLAINT: Dizziness and hyperglycemia. HISTORY OF PRESENT ILLNESS: This is a 63-year-old male with past medical history significant for chronic systolic and diastolic CHF with EF of 45-50%, previously as low as 30%, chronic left bundle-branch block, status post biventricular pacemaker and defibrillator implantation in June of 2017, moderate CAD with catheterization in June 2016, moderate aortic wall stenosis, atrial fibrillation on chronic Coumadin anticoagulation, stage IV chronic kidney disease, baseline creatinine around 2.6 to 3, hypertension, status post adrenalectomy at [facility], hyperlipidemia, anemia of chronic kidney disease, chronic thrombocytopenia, COPD, sleep apnea, not tolerating BiPAP, currently using 3 liters oxygen while sleeping, pulmonary hypertension, type 2 diabetes, history of pulmonary nodules, last admission his diuretics adjusted to torsemide 10 mg daily, presents with dizziness and high blood sugars. The patient states his sugars are running high and he is also feeling dizzy, some shortness of breath on exertion that is why he came to the hospital. Chest x-ray was okay, but he was given a dose of Lasix and his sugars were high, so he was given IV insulin 5 units. Currently resting comfortably and hemodynamically stable. He feels his shortness of breath is better, but when he got up and moved to bed, again he is feeling shortness of breath. Denies any chest pain, no cough, no fever, no chills, no nausea, no vomiting, no headache, no blurred visions, no sore throat, no difficulty swallowing. No abdominal pain. Normal bowel and bladder movements. No black stools or hematochezia, hematuria or dysuria. No increased frequency of urination. Denies any swelling in the legs, no rash. Ambulating okay. Lives with his and he is worried about his aortic stenosis, and also he says his pacemaker was not checked for some time. ALLERGIES: No known drug allergies. PAST MEDICAL HISTORY: As mentioned above. PAST SURGICAL HISTORY: Cardiac catheterization, lumbar cervical spine injections, status post biventricular pacemaker defibrillator, status post pacemaker, skin cancer removed from behind the left ear, status post adrenalectomy. MEDICATIONS: The patient is on torsemide 10 mg p.o. daily, Lantus 50 units under skin daily, Humalog 7 units with breakfast, 14 units with lunch and 40 units with supper, 7 units with high carbonated snack, iron plus vitamin C 1 tablet b.i.d., Crestor 40 mg p.o. daily, Isordil 20 mg p.o. t.i.d., gabapentin 100 mg p.o. t.i.d., Protonix 40 mg p.o. daily, alprazolam 0.5 mg p.o. t.i.d. p.r.n., warfarin 5 mg p.o. daily, Breo Ellipta 1 puff daily, hydralazine 25 mg p.o. t.i.d., Flonase 2 sprays each nostril daily, Toprol-XL 100 mg p.o. daily, DuoNeb 3 mL via nebulization 4 times a day p.r.n., albuterol 2 puffs every 4 hours p.r.n., vitamin D 2000 units p.o. daily, aspirin 81 mg p.o. daily. FAMILY HISTORY: Significant for: Mother had CHF. Brother has diabetes, lung cancer. Sister has lung cancer, in her 40s. SOCIAL HISTORY: and lives with his . Chews tobacco. Alcohol rarely. No drug use. REVIEW OF SYMPTOMS: As per HPI. Rest of review of systems is negative. PHYSICAL EXAMINATION: GENERAL: The patient is alert and oriented, not in acute distress, obese. VITAL SIGNS: Temperature 36.6, respiratory rate 21, blood pressure 140/92, oxygen 94% on room air. HEENT: No pallor, no icterus. Pupils equal, round, reactive to light. NECK: No JVD, no neck masses, no carotid bruits. CARDIOVASCULAR: S1, S2 heard, regular rate and rhythm, no murmur, no gallop. RESPIRATORY SYSTEM: Normal AP diameter. No accessory muscle use. No wheezing, no crackles. ABDOMEN: Soft, bowel sounds present, nontender. No distention. CENTRAL NERVOUS SYSTEM: Cranial nerves II-XII grossly nonfocal. EXTREMITIES: Trace pedal edema, no erythema seen. LABORATORIES DATA: WBC 5, hemoglobin 9.8, hematocrit 31.8, platelets 113. PTT 23.8, INR 2.5. Sodium 133, potassium 4.9, chloride 101, bicarbonate 25, BUN 61, creatinine 3.5, serum glucose 551, calcium 8.7, total bilirubin 0.4, AST 21, ALT 22, alkaline phosphatase 70. Troponin I less than 0.035. BNP 5000. Urinalysis, positive for glucose and protein. IMAGING: Chest x-ray: No acute findings seen. EKG: Atrial sensed ventricular paced rhythm with occasional PVCs with a rate of 63. ASSESSMENT AND PLAN: This is a 63-year-old male who presents with dizziness and hyperglycemia. 1. Dizziness. The patient has history of congestive heart failure and chronic left bundle-branch and biventricular pacemaker defibrillator. EKG showed ventricular paced rhythm with PVCs, questionable pacemaker failure as per EKG reading. The patient says his pacemaker was not checked for some time. We will do the pacemaker interrogation, monitor in tele floor. Consult cardiology in a.m. 2. Shortness of breath with exertion. Chest x-ray was okay, bilateral mild trace pedal edema. Weight is 111 kg, seemed to be at his baseline, but he received a dose of IV Lasix in the ER.On torsemide 10 mg daily at home, which we will hold for now. Monitor daily weights, I's and O's. Await cardiology input. 3. Acute kidney injury on chronic kidney disease stage IV. Baseline creatinine around 2.6-3, presents with creatinine of 3.5. Received a dose of IV Lasix in the ER. Currently holding further diuretics. Follow the repeat labs in a.m. Consult nephrology for further recommendations. 4. History of obstructive sleep apnea, noncompliant with BiPAP, uses oxygen in the nighttime. Continue 3 liters of oxygen at bedtime. 5. Possible acute on chronic systolic and diastolic congestive heart failure, EF of 45-50% and received IV Lasix in the ER. Further diuretics as per cardiology. Holding the home diuretics for now.Continue home fluid restriction of 1500ml and salt restrictions of 1500mg/day 6. History of atrial fibrillation, on Toprol-XL and Coumadin. Rate is under control. INR therapeutic. 7. History of chronic thrombocytopenia. Follow the labs. 8. History of chronic obstructive pulmonary disease. Currently stable. Continue home nebs and inhalers. 9. Anemia of chronic kidney disease. Hemoglobin at baseline. We will follow the labs. 10. History of gastroesophageal reflux disease. Continue PPI. 11. History of hypertension. Continue Isordil, Toprol-XL, hydralazine. We will monitor the blood pressure. 12. Aortic stenosis. Needs follow up. 13. Chronic left bundle-branch block, 14. history of pulmonary nodules , needs followup. 14. History of pulmonary hypertension. Needs followup. 15. Hyperglycemia, history of type 2 diabetes. Continue home Lantus. Received 5 units of IV insulin in the ER, placed on insulin sliding scale. Follow HbA1c levels. We will consult pharmacy. 16. Peripheral arterial disease, on aspirin and Crestor, last admission. Arterial ultrasound showed hemodynamically significant stenosis in the proximal to mid portion of the left posterior tibial artery and also left dorsalis pedis artery. Needs followup. 17. Deep venous thrombosis prophylaxis. INR therapeutic. 18. Disposition: Closely monitor on med/surg tele. Level 1 full code. PT and OT prior to discharge. Social Service to help with discharge planning. NICOLE
[2018-12-25] MEDS: ISOSORBIDE DINITRATE 10 MG TAB PO SCH ×3 (06:07→17:27)
[2018-12-25] MEDS ORDERED: NovoLIN-N (NPH) PER UNIT CHARGE SQ ONE (07:30)
[2018-12-25 08:01] LABS: Basophils # (auto) 0.02 K/uL (0-0.2); Basophils % (auto) 0.4 %; Eosinophils # (auto) 0.11 K/uL (0-0.5); Eosinophils % (auto) 2.1 %; Hematocrit (blood only) 32.6 % (42-52); Hemoglobin 10.2 g/dL (14.0-18.0); Immature Granulocytes # (auto) 0.01 K/uL (0.00-0.02); Immature Granulocytes % (auto) 0.2 %; Lymphocytes # (auto) 1.09 K/uL (1.2-3.4); Lymphocytes % (auto) 20.6 %; Mean Corpuscular Hemoglobin 23.4 pg (25-34); Mean Corpuscular Hgb Conc 31.3 g/dL (32-36); Mean Corpuscular Volume 74.9 fL (80-100); Mean Platelet Volume 9.9 fL (7.4-10.4); Monocytes # (auto) 0.55 K/uL (0.11-0.59); Monocytes % (auto) 10.4 %; Neutrophils # (auto) 3.51 K/uL (1.4-6.5); Neutrophils % (auto) 66.3 %; Platelet Count 119 K/uL (130-400); RDW Coefficient of Variation 15.6 % (11.5-14.5); RDW Standard Deviation 43.4 fL (36.4-46.3); Red Blood Count 4.35 M/uL (4.7-6.1); White Blood Count 5.29 K/uL (4.8-10.8)
[2018-12-25 08:10] LABS: INR 2.5 (0.9-1.1)
[2018-12-25] MEDS: ASPIRIN 81 MG ECTAB PO SCH (08:18)
[2018-12-25] MEDS: GABAPENTIN 100 MG CAP PO SCH ×3 (08:18→17:27)
[2018-12-25] MEDS: PANTOprazole 40 MG TAB PO SCH (08:19)
[2018-12-25] MEDS: CHOLECALCIFEROL 1,000 UNITS TAB PO SCH (08:20)
[2018-12-25] MEDS: METOPROLOL SUCC 50MG EXT REL TAB PO SCH (08:30)
[2018-12-25] MEDS: INSULIN ASPART 100 UNITS/ML 3 ML PEN SC SCH ×5 (08:35→23:26)
[2018-12-25 08:47] LABS: BUN Creatinine Ratio 18.6 (10-20); Calcium 8.8 mg/dl (8.5-10.1); Creatinine Clr Calc Pharmacy 28.9 ml/min; Est GFR (African American) 22.5; Est GFR (Non-African American) 19.4; Magnesium 2.4 mg/dl (1.8-2.4); Potassium 3.7 mmol/L (3.5-5.1)
[2018-12-25 08:52] LABS: Estimated Average Glucose 272 mg/dl; Hemoglobin A1C 11.1 % (4.5-5.6)
--- NOTE | 2018-12-25 12:04 | Pharmacy Report ---
Glycemic Control Consultation - Date of Service December 25, 2018 - Scope Scope: Glycemic Pharmacist consulted for glycemic control and to write orders per [facility] inpatient glycemic control protocol - Objective Weight: 116.4 kg Accm[place]necks BSG (last 24hrs): 12/24/18 12/24/18 12/24/18 20:41 20:46 21:52 Glucose 551 H* POC Glucose 559 H* 576 H* 12/24/18 12/25/18 12/25/18 22:53 01:55 03:14 Glucose POC Glucose 490 H* 411 H* 362 H* 12/25/18 12/25/18 12/25/18 07:07 07:57 11:29 Glucose 298 H POC Glucose 277 H 318 H* 12/25/18 11:30 Glucose POC Glucose 305 H* Laboratory Data (last 24hrs): 12/24/18 12/25/18 20:46 07:07 Potassium 4.9 3.7 D Carbon Dioxide 25 28 Anion Gap 8.0 7.0 Creatinine 3.53 H 3.20 H D Est Cr Clr Drug Dosing 25.6 28.9 Beta-Hydroxybutyric Acd 1.15 HbA1c: Hemoglobin A1c 11.1 % (4.5-5.6) H 12/25/18 07:07 - Recent Pertinent Medications Outpatient Anti-diabetic Regimen: * Lantus 52 units SQ HS * Humalog 7 units with BF + 14 units with lunch + 14 units with dinner - Assessment & Plan Assessment & Plan: ASSESSMENT: * 63yo T2DM male admitted with severe sustained hyperglycemia. IV insulin infusion is preferred for treatment. * Pt already received multiple doses of SQ insulin - will continue with SQ basal bolus with a low threshold to initiate IV insulin infusion if BSGs not trending down. * Will stress outpatient dosing for severe hyperglycemia and titrate based on BSG trends. PLAN FOR INPATIENT GLYCEMIC CONTROL: * Basal insulin * Lantus 30 units SQ x 1 dose given at 0400 * Additional NPH 45 units SQ x 1 dose given this morning to bridge basal insulin until this evening when outpatient dosing will be resumed * Continue Lantus 52 units SQ HS. Start dosing early (with dinner) secondary to sustained hyperglycemia - unsure if patient missed Lantus dosing on 12/24 so we may need to make up some of the missed dose if needed * Bolus insulin * NovoLog per scale ACHS or Q6hrs while NPO. Additional checks + coverage at 0000 & 0400 for hyperglycemia * Goal Range: Low 110 mg/dL - High 140 mg/dL * Correction Factor: 10 mg/dL/unit * Nutritional / Prandial insulin per carb ratio of 1 unit per 4 grams CHO consumed * Please note that the plan above was derived based on current level of insulin resistance and hospital stress. These recommendations are appropriate for inpatient admission only. Plan of care upon discharge will need to be reassessed to avoid potential outpatient hypo/hyperglycemia. Thank you.
--- NOTE | 2018-12-25 12:24 | Hospitalist Progress Note ---
Date of Service December 25, 2018 Assessment & Plan (1) Dizziness: Possible secondary to persistent hyperglycemia, intravascular volume depletion Symptom improved after hospitalization with better control of blood sugar, improvement of pulmonary edema, hypoxemia No evidence of neurological deficit PT OT evaluation requested Check orthostatic vitals Fall precaution ordered (2) Acute on chronic systolic HF (heart failure): Present shortness of breath hypoxia, volume overload Secondary to acute on chronic systolic heart failure, last echo showed ejection fraction of 45-50% Patient given IV Lasix x1 in the ER, Cardiology consulted Patient will be continued with fluid restriction of 1500 mL a day/low-salt diet * Continue to monitor strict input and output * Appreciate input from nephrology, outpatient diuretics presented continued, continue monitor BMP very closely (3) [id number] kidney injury: Baseline CKD stage IV with creatinine around 2.6-3 Presented with elevated creatinine of 3.5 Received IV Lasix in the ER Continue to monitor renal function Avoid nephrotoxin, NSAIDs, contrast studies (4) ARPIT (obstructive sleep apnea): Noncompliant with BiPAP, utilizes O2 at night Continue 3 L O2 at bedtime (5) Thrombocytopenia: Chronic, Monitor CBC, no evidence of active bleed (6) DM type 2 (diabetes mellitus, type 2): History of type 2 diabetes on insulin Presented with hyperglycemia blood sugar more than 500, no DKA, no anion gap, normal beta hydroxy butyrate acid Patient received IV insulin 5 units in the ER, blood sugar improved to 300 Continue basal Lantus and sliding scale, pharmacy consult for glycemic management (7) Atrial fibrillation: Chronic, rate controlled Continue Toprol-XL, on chronic anticoagulation on Coumadin (8) Peripheral arterial disease: Recent arterial Doppler: Showed hemodynamically significant stenosis in the proximal to midportion of the left posterior tibial artery/left dorsalis pedis artery, patient will need continued outpatient vascular surgery following Continue outpatient meds: Aspirin and statin (Crestor) CODE STATUS: Full code DVT prophylaxis: On Coumadin Disposition: Patient will have a PT OT evaluation prior to discharge to assess for deconditioning Social service consult for discharge planning Subjective Patient denies of any shortness of breath, orthopnea, cough has improved no fever or chills Is does not have any dizzy spell anymore, Reports his blood sugars been persistently high at home [id number] He has not been compliant with his insulin, missing doses, sometimes taking it after meals Long discussion with patient regarding importance of taking insulin accurately to prevent severe consequences/complications secondary to hyperglycemia Last blood sugars running in 200/300, insulin regimen adjusted by pharmacy Ordered cosmetology educator consult Physical Exam Constitutional: WD/WN, vitals as above no acute distress Eyes: PERRL, conjunctivae normal, anicteric sclerae ENMT: external ear and nose normal, oropharynx normal Neck: trachea midline, no thyromegaly Respiratory: no cough Auscultation: + rales (Bibasilar Rales); no wheezes Cardiovascular: RRR, no murmur, no edema Gastrointestinal (Abdomen): normal bowel sounds, soft, nontender, no h epatosplenomegaly Musculoskeletal: no cyanosis or clubbing, extremities motor strength 5/5 Skin: no rashes, warm and dry Neurologic: PERRL, EOMI, accommodation nl, no face palsy, no dysarthria Psychiatric: A+Ox3, euthymic affect Results & Data Vital Signs (Past 12 Hours) Vital Signs Temp Pulse Resp BP Pulse Ox 12/25/18 07:04 36.6 C 59 L 18 97/60 L 96 12/25/18 04:00 36.7 C 60 14 139/73 99 12/25/18 03:00 36.5 C 64 16 184/72 H 100 12/25/18 01:57 62 19 171/101 H 96 (1) DM type 2 (diabetes mellitus, type 2) Diabetes mellitus complication detail: with unspecified neuropathy Diabetes mellitus complication status: with neurologic complications Diabetes mellitus prison insulin use: with prison use Qualified Code(s): E11.40 - Type 2 diabetes mellitus with diabetic neuropathy, unspecified; Z79.4 - MCC (current) use of insulin (2) Atrial fibrillation Atrial fibrillation type: chronic Qualified Code(s): I48.2 - Chronic atrial fibrillation (3) Pbywq-ou-aernsri kidney injury Acute renal failure type: unspecified Chronic kidney disease stage: unspecified stage Qualified Code(s): N17.9 - Acute kidney failure, unspecified; N18.9 - Chronic kidney disease, unspecified
--- NOTE | 2018-12-25 12:48 | Nephrology Consultation ---
Date of Consultation December 25, 2018 Assessment & Plan (1) Acute renal failure superimposed on stage 4 chronic kidney disease: CKD 4 w/ baseline creatinine 2.6-3.0 and 2 gm daily proteinuria. creatinine very labile historically gris as inpt w/ repeated PAM. today w/ improving nonolliguric pam. -cont 1.5L fluid and 1.5 gm Na restrictions ->>>keep looking for ways to get him to tolerate bipap >> ? trial in house here -daily bmp, q48hr bmp -daily STANDING weight pls w/ I/O -give 5 mg torsemide today rather than customary 10; tomorrow resume 10 mg daily if renal function stable or improved (order in) >>>NOTE he does NOT take daily torsemide as OP but takes it Tues, Thurs, Sat, Sun only and prn wt gain extra 10 mg which happens about once weekly ; home med list updated w/ pharmacy -no indication at this time for emergent dialysis; he is however at high risk longer term to need this Present on Admission?: Yes History of Present Illness Reason for Consultation: PAM Requesting Physician: Dr Desai Attending Physician: Bell Kay MD History of Present Illness 63 y/o M whom I'm asked to see for PAM was admitted last evening after he presented w/ worsening chronic dizziness, worsening chronic exertional dyspnea, hyperglycemia. 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 He has had several admissions here for labile blood pressures and dizziness, most recently 09/2018, 05/2018. His presenting creatinine yesterday was 3.5, improved to 3.2 today. Apart from BG in 300s, no severe metabolic/electrolyte abnormalities. Pt worked yesterday at [employer]; felt weak and w/ vertigo sx late in that event; noted also to have BG in 600s at the time per his . He has chronic anemia, thrombocytopenia which are stable. His SBP since arrival have ranged from 97 this am to 181 last evening. He had lasix 40 mg IV in ER last evening; he takes 10 mg torsemide 4 days weekly as outpatient, takes extra dose prn about once weekly. OP wts have been stable in 249-250 lb range. He is supposed to be getting new bipap/cpap but has not had yet; hx of not tolerating Allergies Allergy/AdvReac Type Severity Reaction Status Date / Time No Known Allergies Allergy Verified 12/24/18 23:01 Home Medications Home Medications Medication Instructions Recorded Confirmed Type Lantus Solostar U-100 Insulin 52 units SUBCUT HS 02/05/18 12/24/18 History aspirin 81 mg PO DAILY 02/05/18 12/24/18 History cholecalciferol (vitamin D3) 2,000 unit PO DAILY 02/05/18 12/24/18 History [Vitamin D3] isosorbide dinitrate 20 mg PO TIDM 02/05/18 12/24/18 History metoprolol succinate [Toprol XL] 100 mg PO DAILY 02/05/18 12/24/18 History pantoprazole [Protonix] 40 mg PO DAILY 02/05/18 12/24/18 History rosuvastatin [Crestor] 40 mg PO HS 02/05/18 12/24/18 History gabapentin 100 mg PO TIDM 05/14/18 12/24/18 History hydralazine 25 mg PO TIDM 05/20/18 12/24/18 History Breo Ellipta 1 inh INHALATION DAILY 08/01/18 12/24/18 History albuterol sulfate [ProAir HFA] 2 puff INHALATION Q4H PRN 08/01/18 12/24/18 History fluticasone propionate [Flonase 2 spray INTRANASAL DAILY PRN 08/01/18 12/24/18 History Allergy Relief] ipratropium-albuterol 3 ml INHALATION QID PRN 08/01/18 12/24/18 History warfarin 5 mg PO DAILY 10/03/18 12/24/18 History insulin lispro [Humalog KwikPen 7 unit SUBCUT QDB 12/24/18 12/24/18 History Insulin] insulin lispro [Humalog KwikPen 14 unit SUBCUT QDD 12/24/18 12/24/18 History Insulin] insulin lispro [Humalog KwikPen 14 unit SUBCUT QDL 12/24/18 12/24/18 History Insulin] torsemide 10 mg PO DAILY 12/24/18 12/24/18 History Patient History Medical History Diabetic neuropathy (Chronic) Chronic systolic (congestive) heart failure (Chronic) Aortic stenosis (Chronic) Nocturnal hypoxia (Chronic) on 2L NC O2 HS GERD (gastroesophageal reflux disease) (Chronic) Thrombocytopenia (Chronic) Chronic anemia (Chronic) Asthma (Chronic) DM type 2 (diabetes mellitus, type 2) (Chronic) Dyslipidemia (Chronic) Hypertension (Chronic) CAD (coronary artery disease) (Chronic) "nonobstructive" Nonischemic cardiomyopathy (Chronic) "EF 40-45% with mod on 02/04" LBBB (left bundle branch block) (Chronic) Atrial fibrillation (Chronic) on chronic anticoagulation Surgical History H/O cardiac catheterization (Chronic) Non nonobstructive CAD on 2016 cardiac cath Presence of combination internal cardiac defibrillator (ICD) and pacemaker (Chronic) Family History Other Diabetes Hypertension Lung cancer Social History Preferred Language: Romansh Communication Ability: Effective Visual Impairment: Limited Telegraph Equipment Maintainer Required: No Beliefs That Will Affect Care: None marital status: Current Living Situation: Spouse current occupational status: retired 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 Other Information That Helps Us Care for You: No Feels Safe at Home: Yes Safety Concerns: Feels Safe At This Time Smoking Status: Never smoker Tobacco Type: smokeless tobacco ; Cigarettes Per Day: 1 can per day ; Do You Dip or Chew Tobacco: Yes ; Second Hand Exposure: No ; Tobacco Cessation Education Requested by Patient: No Hx Alcohol Use: No Hx Substance Use: No Review of Systems Review of Systems: All systems reviewed & are unremarkable except as noted in HPI & below Genitourinary: + nocturia (stable 4-5) Musculoskeletal: stable BL calf claudication w/o rest pain Neurologic: + dizziness (vertigo (room spinning) consistently more than balance off) and + problem reported (intermittent blurred vision) Physical Exam Constitutional: well developed and well nourished sitting in bed on ra Eyes: EOM intact bilaterally ENMT: Ears: no external ear abnormality Nose: no external nose abnormality Mouth: + dry oral mucous membranes Neck: no nuchal rigidity Respiratory: normal respiratory effort Auscultation: + diminished lung sounds Cardiovascular: RRR, no murmur, no edema Gastrointestinal (Abdomen): Inspection/Auscultation: normal bowel sounds Percussion/Palpation: abdomen soft; abdomen nontender Musculoskeletal: Extremities: strength 5/5 throughout Skin: no rashes, warm and dry Neurologic: mathew, fluent speech, no tremor Psychiatric: A+Ox3, euthymic affect Insight: good insight Judgement: good judgement Results & Data Vital Signs (Past 12 Hours) Vital Signs Temp Pulse Resp BP Pulse Ox 12/25/18 07:04 36.6 C 59 L 18 97/60 L 96 12/25/18 04:00 36.7 C 60 14 139/73 99 12/25/18 03:00 36.5 C 64 16 184/72 H 100 12/25/18 01:57 62 19 171/101 H 96 Laboratory Results Abnormal lab results 12/24/18 12/24/18 12/24/18 Range/Units 20:41 20:46 20:46 RBC 4.19 L (4.7-6.1) M/uL Hgb 9.8 L (14.0-18.0) g/dL Hct 31.8 L (42-52) % MCV 75.9 L (80-100) fL MCH 23.4 L (25-34) pg MCHC 30.8 L (32-36) g/dL RDW Coeff of Joey 15.9 H (11.5-14.5) % Plt Count 113 L (130-400) K/uL Lymph # (Auto) 0.82 L (1.2-3.4) K/uL PT 23.8 H (9.0-12.0) Seconds INR 2.5 H (0.9-1.1) APTT 34.0 H (21.0-31.0) Seconds Sodium (136-145) mmol/L BUN (7-18) mg/dl Creatinine (0.6-1.4) mg/dl Glucose (70-99) mg/dl POC Glucose 559 H* (70-99) Hemoglobin A1c (4.5-5.6) % NT-Pro-B Natriuret Pep (0-900) pg/ml Albumin (3.4-5.0) gm/dl Urine Protein (Negative) Urine Glucose (UA) (Negative) U Epithel Cells (Auto) (0-5) /lp 12/24/18 12/24/18 12/24/18 Range/Units 20:46 21:20 21:52 RBC (4.7-6.1) M/uL Hgb (14.0-18.0) g/dL Hct (42-52) % MCV (80-100) fL MCH (25-34) pg MCHC (32-36) g/dL RDW Coeff of Joey (11.5-14.5) % Plt Count (130-400) K/uL Lymph # (Auto) (1.2-3.4) K/uL PT (9.0-12.0) Seconds INR (0.9-1.1) APTT (21.0-31.0) Seconds Sodium 133 L (136-145) mmol/L BUN 61 H (7-18) mg/dl Creatinine 3.53 H (0.6-1.4) mg/dl Glucose 551 H* (70-99) mg/dl POC Glucose 576 H* (70-99) Hemoglobin A1c (4.5-5.6) % NT-Pro-B Natriuret Pep 5022 H (0-900) pg/ml Albumin 3.3 L (3.4-5.0) gm/dl Urine Protein 2+ H (Negative) Urine Glucose (UA) 3+ H (Negative) U Epithel Cells (Auto) 10-20 H (0-5) /[facility] 12/24/18 12/25/18 12/25/18 Range/Units 22:53 01:55 03:14 RBC (4.7-6.1) M/uL Hgb (14.0-18.0) g/dL Hct (42-52) % MCV (80-100) fL MCH (25-34) pg MCHC (32-36) g/dL RDW Coeff of Joey (11.5-14.5) % Plt Count (130-400) K/uL Lymph # (Auto) (1.2-3.4) K/uL PT (9.0-12.0) Seconds INR (0.9-1.1) APTT (21.0-31.0) Seconds Sodium (136-145) mmol/L BUN (7-18) mg/dl Creatinine (0.6-1.4) mg/dl Glucose (70-99) mg/dl POC Glucose 490 H* 411 H* 362 H* (70-99) Hemoglobin A1c (4.5-5.6) % NT-Pro-B Natriuret Pep (0-900) pg/ml Albumin (3.4-5.0) gm/dl Urine Protein (Negative) Urine Glucose (UA) (Negative) U Epithel Cells (Auto) (0-5) /lpf 12/25/18 12/25/18 12/25/18 Range/Units 07:07 07:07 07:07 RBC 4.35 L (4.7-6.1) M/uL Hgb 10.2 L (14.0-18.0) g/dL Hct 32.6 L (42-52) % MCV 74.9 L (80-100) fL MCH 23.4 L (25-34) pg MCHC 31.3 L (32-36) g/dL RDW Coeff of Joey 15.6 H (11.5-14.5) % Plt Count 119 L (130-400) K/uL Lymph # (Auto) 1.09 L (1.2-3.4) K/uL PT (9.0-12.0) Seconds INR (0.9-1.1) APTT (21.0-31.0) Seconds Sodium (136-145) mmol/L BUN 60 H (7-18) mg/dl Creatinine 3.20 H D (0.6-1.4) mg/dl Glucose 298 H (70-99) mg/dl POC Glucose (70-99) Hemoglobin A1c 11.1 H (4.5-5.6) % NT-Pro-B Natriuret Pep (0-900) pg/ml Albumin (3.4-5.0) gm/dl Urine Protein (Negative) Urine Glucose (UA) (Negative) U Epithel Cells (Auto) (0-5) /lpf 12/25/18 12/25/18 12/25/18 Range/Units 07:07 07:57 11:29 RBC (4.7-6.1) M/uL Hgb (14.0-18.0) g/dL Hct (42-52) % MCV (80-100) fL MCH (25-34) pg MCHC (32-36) g/dL RDW Coeff of Joey (11.5-14.5) % Plt Count (130-400) K/uL Lymph # (Auto) (1.2-3.4) K/uL PT 24.0 H (9.0-12.0) Seconds INR 2.5 H (0.9-1.1) APTT (21.0-31.0) Seconds Sodium (136-145) mmol/L BUN (7-18) mg/dl Creatinine (0.6-1.4) mg/dl Glucose (70-99) mg/dl POC Glucose 277 H 318 H* (70-99) Hemoglobin A1c (4.5-5.6) % NT-Pro-B Natriuret Pep (0-900) pg/ml Albumin (3.4-5.0) gm/dl Urine Protein (Negative) Urine Glucose (UA) (Negative) U Epithel Cells (Auto) (0-5) /lpf 12/25/18 Range/Units 11:30 RBC (4.7-6.1) M/uL Hgb (14.0-18.0) g/dL Hct (42-52) % MCV (80-100) fL MCH (25-34) pg MCHC (32-36) g/dL RDW Coeff of Joey (11.5-14.5) % Plt Count (130-400) K/uL Lymph # (Auto) (1.2-3.4) K/uL PT (9.0-12.0) Seconds INR (0.9-1.1) APTT (21.0-31.0) Seconds Sodium (136-145) mmol/L BUN (7-18) mg/dl Creatinine (0.6-1.4) mg/dl Glucose (70-99) mg/dl POC Glucose 305 H* (70-99) Hemoglobin A1c (4.5-5.6) % NT-Pro-B Natriuret Pep (0-900) pg/ml Albumin (3.4-5.0) gm/dl Urine Protein (Negative) Urine Glucose (UA) (Negative) U Epithel Cells (Auto) (0-5) /lpf Diagnostic Findings cxr > 1. Cardiomegaly and AICD with no radiographic evidence of congestive failure. 2. No airspace consolidation or large pleural effusion is identified. (1) Acute renal failure superimposed on stage 4 chronic kidney disease Acute renal failure type: unspecified Qualified Code(s): N17.9 - Acute kidney failure, unspecified; N18.4 - Chronic kidney disease, stage 4 (severe)
[2018-12-25] MEDS ORDERED: TORSEMIDE 10 MG TAB PO ONE (14:30)
[2018-12-25] MEDS: WARFARIN SOD 5 MG TAB PO SCH (16:06)
[2018-12-25] MEDS: INSULIN GLARGINE SOLOSTAR 100 UNITS/ML 3 ML PEN SC SCH (17:40)
--- NOTE | 2018-12-25 18:44 | Consultation Report ---
DATE OF CONSULTATION: 12/25/2018 CONSULTATION REQUESTED BY: Dr. Desai. REASON FOR CONSULTATION: Dizziness. HISTORY OF PRESENT ILLNESS: The patient is a very medically complex 63-year-old gentleman who presented to [facility] late in the evening of 12/24/2018 with complaints of dizziness. 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 He was walking in the kitchen and suddenly became very dizzy. He became rather weak on his feet and he was caught by one of his friends. The dizziness he described as the room spinning around him. He states that the sensation lasted for several minutes. His friends were concerned and he was brought into the Emergency Department. Upon arrival, he was not volume overloaded and the remainder of his workup was unremarkable and he is admitted to telemetry. Overnight, the patient states he had 1 slight episode that was similar after he turned his head quickly to look to his left. Otherwise, he denies any chest pain, palpitations, lightheadedness, or syncope. PAST SURGICAL HISTORY: 1. Biventricular ICD. 2. Cardiac catheterization with moderate nonobstructive disease. 3. Adrenalectomy. 4. Colonoscopy. 5. Mohs surgery. MEDICAL ILLNESSES: 1. Nonischemic cardiomyopathy with ejection fraction 45%-50%, previously as low as 30%. 2. Chronic left bundle branch block. 3. Status post biventricular pacemaker defibrillator implantation. 4. Moderate atherosclerotic coronary artery disease without obstruction by cardiac catheterization in 06/2016. 5. Calcified aortic valve disease with borderline severe aortic stenosis. 6. Stage IV chronic kidney disease. 7. Paroxysmal atrial fibrillation, on chronic Coumadin therapy. 8. Hypertension. 9. Dyslipidemia. 10. Chronic anemia. 11. Chronic thrombocytopenia. 12. COPD. 13. Obstructive sleep apnea. 14. Pulmonary hypertension. 15. Diabetes. 16. Obesity. FAMILY HISTORY: Noncontributory. SOCIAL HISTORY: Denies any tobacco use. Drinks occasional alcohol. Denies any recreational drug use. MEDICATIONS AN OUTPATIENT: 1. Torsemide 10 mg daily and p.r.n. 2. Crestor 40 mg daily. 3. Isordil 20 mg 3 times a day. 4. Coumadin as directed by the [facility]. 5. Hydralazine 25 mg 3 times a day. 6. Metoprolol succinate 100 mg daily. 7. Oxygen 2 liters at night. 8. Aspirin 81 mg daily. 9. Insulin as directed. 10. Breo. 11. Xanax. 12. Protonix. ALLERGIES: No known drug allergies. REVIEW OF SYSTEMS: As per HPI. All other review of systems reviewed and negative at this time. PHYSICAL EXAMINATION: VITALS: Temperature 36.6, pulse 59, respiratory rate 12, blood pressure 97/60. GENERAL: Awake, alert, oriented x3, in no acute distress. HEENT: Normocephalic, atraumatic. Pupils equal, round, reactive to light and accommodation. Extraocular muscles intact. Anicteric sclerae. Moist mucous membranes. NECK: No JVD, no bruit. CARDIOVASCULAR: Regular. Positive S4. Normal S1 and S2. No S3. Soft 3/6 mid to late systolic ejection murmur greatest at the right sternal border second intercostal space with radiation to bilateral carotids. No rubs. PULMONARY: Clear to auscultation bilaterally. No rales, rhonchi or wheezing. ABDOMEN: Bowel sounds x4, soft. No rebound, guarding, tenderness. No organomegaly. EXTREMITIES: No clubbing, cyanosis or edema. Poor pedal pulses bilaterally. SKIN: Warm and dry. TEST RESULTS/LABORATORY STUDIES OF SIGNIFICANCE: Sodium 139, potassium 3.7, BUN 60, creatinine 3.2. Hemoglobin of 10.2. Chest x-ray was read as cardiomegaly and AICD with no radiographic evidence of congestive heart failure. No airspace consolidations or large pleural effusions are identified. IMPRESSION: 1. Dizziness, likely benign positional vertigo. 2. Nonischemic cardiomyopathy, stable. 3. Borderline severe aortic stenosis. 4. Poorly controlled diabetes. 5. Hypertension. 6. Nonobstructive coronary artery disease. 7. Stage IV chronic kidney disease. 8. Paroxysmal atrial fibrillation, on chronic Coumadin therapy. 9. History of medication noncompliance. RECOMMENDATIONS: The patient was counseled that his dizziness is a classic description of benign positional vertigo, so at this time, I will ask Physical Therapy to evaluate him for Hallpike and possibly Riri maneuvers. Cardiac poe, I do not see the benefit of any changes at this time. He will continue his current outpatient medical regimen and he should follow up as scheduled on 12/28/2018 for pacemaker interrogation. Otherwise, we will not repeat an echocardiogram at this time as he is already scheduled for one in February. It is okay to discharge the patient to home from a cardiac standpoint once he has been seen by Physical Therapy. NICOLE
[2018-12-25] MEDS: ROSUVASTATIN CALCIUM 20 MG TAB PO SCH (20:57)
[2018-12-25] MEDS ORDERED: INSULIN GLARGINE SOLOSTAR 100 UNITS/ML 3 ML PEN SC SCH (21:00)
[2018-12-25] MEDS ORDERED: INSULIN GLARGINE SOLOSTAR 100 UNITS/ML 3 ML PEN SQ SCH (21:00)
[2018-12-25] MEDS: GLUCOSE 40% GEL 15 GM TUBE PO PRN ×2 (22:49→23:06)
[2018-12-26] MEDS: INSULIN ASPART 100 UNITS/ML 3 ML PEN SC SCH ×5 (04:25→21:52)
[2018-12-26 05:51] LABS: Basophils # (auto) 0.02 K/uL (0-0.2); Basophils % (auto) 0.4 %; Eosinophils # (auto) 0.12 K/uL (0-0.5); Eosinophils % (auto) 2.2 %; Hemoglobin 10.3 g/dL (14.0-18.0); Immature Granulocytes # (auto) 0.01 K/uL (0.00-0.02); Immature Granulocytes % (auto) 0.2 %; Lymphocytes # (auto) 0.94 K/uL (1.2-3.4); Lymphocytes % (auto) 17.2 %; Mean Corpuscular Hemoglobin 23.3 pg (25-34); Mean Corpuscular Hgb Conc 31.2 g/dL (32-36); Mean Corpuscular Volume 74.7 fL (80-100); Mean Platelet Volume 9.7 fL (7.4-10.4); Monocytes # (auto) 0.54 K/uL (0.11-0.59); Monocytes % (auto) 9.9 %; Neutrophils # (auto) 3.82 K/uL (1.4-6.5); Neutrophils % (auto) 70.1 %; Platelet Count 110 K/uL (130-400); RDW Coefficient of Variation 15.8 % (11.5-14.5); RDW Standard Deviation 43.5 fL (36.4-46.3); Red Blood Count 4.42 M/uL (4.7-6.1); White Blood Count 5.45 K/uL (4.8-10.8)
[2018-12-26 06:00] LABS: INR 2.5 (0.9-1.1)
[2018-12-26 06:27] LABS: BUN Creatinine Ratio 17.6 (10-20); Calcium 8.7 mg/dl (8.5-10.1); Creatinine Clr Calc Pharmacy 30.3 ml/min; Est GFR (African American) 23.8; Est GFR (Non-African American) 20.6; Magnesium 2.4 mg/dl (1.8-2.4); Potassium 3.6 mmol/L (3.5-5.1)
[2018-12-26] MEDS: ISOSORBIDE DINITRATE 10 MG TAB PO SCH ×3 (06:40→16:33)
[2018-12-26] MEDS: CHOLECALCIFEROL 1,000 UNITS TAB PO SCH (08:15)
[2018-12-26] MEDS: PANTOprazole 40 MG TAB PO SCH (08:17)
[2018-12-26] MEDS: ASPIRIN 81 MG ECTAB PO SCH (08:17)
[2018-12-26] MEDS: GABAPENTIN 100 MG CAP PO SCH ×3 (08:18→16:33)
[2018-12-26] MEDS: METOPROLOL SUCC 50MG EXT REL TAB PO SCH (08:19)
[2018-12-26] MEDS ORDERED: TORSEMIDE 10 MG TAB PO SCH (09:00)
--- NOTE | 2018-12-26 10:03 | Pharmacy Report ---
Pharmacy Glycemic Short Note 2 - Date of Service December 26, 2018 - Glycemic Short BSG Results (Last 24 hours): 12/25/18 12/25/18 12/25/18 11:29 11:30 17:00 Glucose POC Glucose 318 H* 305 H* 221 H 12/25/18 12/25/18 12/25/18 20:10 22:37 22:41 Glucose POC Glucose 134 H 66 L* 54 L* 12/25/18 12/25/18 12/26/18 23:03 23:22 03:43 Glucose POC Glucose 66 L* 117 H 83 12/26/18 12/26/18 12/26/18 05:25 07:34 07:35 Glucose 62 L POC Glucose 64 L* 69 L* 12/26/18 08:01 Glucose POC Glucose 79 OUTPATIENT ANTIDIABETIC REGIMEN: * Lantus 52 units SQ HS * Humalog 7 units with BF + 14 units with lunch + 14 units with dinner * A1c = 11.1% on 12/25/18 ASSESSMENT: * 63yo T2DM male admitted with severe sustained hyperglycemia. IV insulin infusion is preferred for treatment. However, Pt already received multiple doses of SQ insulin - therefore, continued with aggressive SQ. * Unfortunately, pt with LOW BSG overnight most likely related to stressed insulin dosing yesterday and stacking. * Pt received 198 units of insulin yesterday. Will significantly decrease to ~ a total daily dose of ~100 units/day and titrate based on BSG trends. PLAN FOR INPATIENT GLYCEMIC CONTROL: * Basal insulin: will be decreased today. Pt received supplemental doses yesterday. No supplemental doses today- just continue outpatient dosing * Lantus 52 units SQ HS * Bolus insulin: loosen parameters * NovoLog per scale ACHS or Q6hrs while NPO * Goal Range: Low 110 mg/dL - High 140 mg/dL * Correction Factor: 15 mg/dL/unit * Nutritional / Prandial insulin per carb ratio of 1 unit per 5 grams CHO consumed
--- NOTE | 2018-12-26 12:10 | Cardiology Progress Note ---
Date of Service December 26, 2018 Assessment & Plan (1) Dizziness: somewhat improved with PT but now orthostatic I will not adjust current diuretics given renal function no active cardiac component ok to d/c to home from cardiac standpoint (2) Volume depletion: no diuretics ordered for today (3) CKD (chronic kidney disease) stage 4, GFR 15-29 ml/min: nephrology following closely (4) CHF (congestive heart failure): stable (5) Aortic stenosis: borderline severe CKD limits options will cont to observe already scheduled for outpatient echo in February no med changes Subjective Pt seen and examined, states that he feels a little better after PT but still with dizziness upon standing. Otherwise, denies cp, sob, palpitations or syncope tele reviewed: sinus/v paced Review of Systems Review of Systems: All systems reviewed & are unremarkable except as noted in HPI & below Physical Exam Physical Exam: General: Awake, alert and oriented x 3. No acute distress. HEENT: Normocephalic, atraumatic. Pupils equal, round and reactive to light and accommodation. Extraocular muscles are intact. Anicteric sclera. Moist mucous membranes. Neck: No JVD. No bruit. Cardiovascular: Regular. Positive S-4. Normal S-1 and S-2. No S-3. No murmurs or rubs. Pulmonary: Clear to auscultation B/L. No rales, rhonchi or wheezing Abdomen: Bowel sounds x 4, soft. No rebound, guarding or tenderness. No organomegaly. Extremities: No clubbing, cyanosis or edema. +2 pedal pulses bilaterally. Skin: Warm and dry. Results & Data Vital Signs (Past 12 Hours) Vital Signs Temp Pulse Pulse Resp BP BP Pulse Ox 12/26/18 11:38 36.6 C 62 20 126/78 93 12/26/18 09:37 92 12/26/18 09:34 61 12/26/18 04:28 36.8 C 62 18 154/79 H 98 12/26/18 02:54 64 (1) CHF (congestive heart failure) Heart failure chronicity: unspecified Heart failure type: unspecified Qualified Code(s): I50.9 - Heart failure, unspecified (2) Aortic stenosis Cardiac valve disease etiology: nonrheumatic Qualified Code(s): I35.0 - Nonrheumatic aortic (valve) stenosis
[2018-12-26] MEDS ORDERED: LACTATED RINGER'S 1,000 ML IV SCH (15:15)
[2018-12-26] MEDS: WARFARIN SOD 5 MG TAB PO SCH (15:31)
[2018-12-26] MEDS: INSULIN GLARGINE SOLOSTAR 100 UNITS/ML 3 ML PEN SC SCH (17:34)
--- NOTE | 2018-12-26 17:45 | Hospitalist Progress Note ---
Date of Service December 26, 2018 Assessment & Plan (1) Dizziness: Patient found to be severely hypotensive orthostatically, dizzy spell possibly secondary to intravascular volume depletion, patient reports of dizzy and lightheaded as well standing up, no symptoms when sitting or lying down BP: Orthostatic vitals yesterday: 2:42 PM showed Standing 130/75 Sitting 110/72 Lying 103/67 Patient reports of feeling dizzy and lightheaded when standing up Diuretics order to kept on hold Ordered IV fluid bolus, continue to reassess blood pressure and orthostatic vitals in a.m. (2) Acute on chronic systolic HF (heart failure): Presented shortness of breath hypoxia, volume overload Secondary to acute on chronic systolic heart failure, last echo showed ejection fraction of 45-50% Patient given IV Lasix x1 in the ER, Cardiology consulted Appreciate input, Diuretics at this point secondary to intravascular volume depletion dispel on standing, postural/orthostatic hypotension Continue to monitor volume status * Continue to monitor strict input and output * (3) Cjizm-ls-xkoxmsx kidney injury: Baseline CKD stage IV with creatinine around 2.6-3 Presented with elevated creatinine of 3.5 Received IV Lasix in the ER Continue to monitor renal function creatinine continues to improve 3.53.23.(Approximate baseline) We will continue to monitor Avoid nephrotoxin, NSAIDs, contrast studies (4) ARPIT (obstructive sleep apnea): Noncompliant with BiPAP, utilizes O2 at night Continue 3 L O2 at bedtime (5) Thrombocytopenia: Chronic, Monitor CBC, no evidence of active bleed (6) DM type 2 (diabetes mellitus, type 2): History of type 2 diabetes on insulin Presented with hyperglycemia blood sugar more than 500, no DKA, no anion gap, normal beta hydroxy butyrate acid Patient received IV insulin 5 units in the ER, blood sugar improved to 300 Continue basal Lantus and sliding scale, pharmacy consult for glycemic management Appreciate input, Basal Lantus dose adjusted, (7) Atrial fibrillation: Chronic, rate controlled Continue Toprol-XL, on chronic anticoagulation on Coumadin (8) Peripheral arterial disease: Recent arterial Doppler: Showed hemodynamically significant stenosis in the proximal to midportion of the left posterior tibial artery/left dorsalis pedis artery, patient will need continued outpatient vascular surgery following Continue outpatient meds: Aspirin and statin (Crestor) CODE STATUS: Full code DVT prophylaxis: On Coumadin Disposition: Patient will have a PT OT evaluation prior to discharge to assess for deconditioning Social service consult for discharge planning Subjective Patient complains of feeling dizzy and lightheaded full standing up, symptom resolved after taking rest No complaint of shortness of breath, no dyspnea on exertion no hypoxia noted remains in room air Fever or chills, no cough Review of Systems Review of Systems: All systems reviewed & are unremarkable except as noted in HPI & below Physical Exam Constitutional: WD/WN, vitals as above no acute distress Eyes: PERRL, conjunctivae normal, anicteric sclerae ENMT: external ear and nose normal, oropharynx normal Neck: trachea midline, no thyromegaly Respiratory: no cough Auscultation: + rales (Bibasilar Rales); no wheezes Cardiovascular: RRR, no murmur, no edema Gastrointestinal (Abdomen): normal bowel sounds, soft, nontender, no hepatosplenomegaly Musculoskeletal: no cyanosis or clubbing, extremities motor strength 5/5 Skin: no rashes, warm and dry Neurologic: PERRL, EOMI, accommodation nl, no face palsy, no dysarthria Psychiatric: A+Ox3, euthymic affect Results & Data Vital Signs (Past 12 Hours) Vital Signs Temp Pulse Pulse Resp BP BP Pulse Ox 12/26/18 16:01 36.4 C L 62 18 128/73 93 12/26/18 14:49 60 12/26/18 11:38 36.6 C 62 20 126/78 93 12/26/18 09:37 92 12/26/18 09:34 61 (1) DM type 2 (diabetes mellitus, type 2) Diabetes mellitus complication detail: with unspecified neuropathy Diabetes mellitus complication status: with neurologic complications Diabetes mellitus mcc insulin use: with mcc use Qualified Code(s): E11.40 - Type 2 diabetes mellitus with diabetic neuropathy, unspecified; Z79.4 - adjunct faculty for 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
[2018-12-26] MEDS ORDERED: INSULIN ASPART 100 UNITS/ML 3 ML PEN SC SCH (19:00)
[2018-12-26] MEDS: ROSUVASTATIN CALCIUM 20 MG TAB PO SCH (21:51)
[2018-12-27] MEDS: ISOSORBIDE DINITRATE 10 MG TAB PO SCH ×3 (06:14→17:37)
[2018-12-27 07:40] LABS: INR 2.4 (0.9-1.1); Prothrombin Time 23.5 Seconds (9.0-12.0)
[2018-12-27] MEDS: ASPIRIN 81 MG ECTAB PO SCH (08:43)
[2018-12-27] MEDS: PANTOprazole 40 MG TAB PO SCH (08:43)
[2018-12-27] MEDS: METOPROLOL SUCC 50MG EXT REL TAB PO SCH (08:43)
[2018-12-27] MEDS: CHOLECALCIFEROL 1,000 UNITS TAB PO SCH (08:44)
[2018-12-27] MEDS: GABAPENTIN 100 MG CAP PO SCH ×3 (08:45→17:38)
[2018-12-27] MEDS: INSULIN ASPART 100 UNITS/ML 3 ML PEN SC SCH ×4 (08:46→21:04)
--- NOTE | 2018-12-27 13:52 | Pharmacy Report ---
Glycemic Control Progress Note - Date of Service December 27, 2018 - Scope Glycemic Pharmacist consulted for glycemic control to write orders per [facility] inpatient glycemic control protocol. - Objective Accuchecks BSG(last 24 hours):: 12/26/18 12/26/18 12/26/18 16:38 16:39 19:18 POC Glucose 344 H* 386 H* 292 H 12/26/18 12/27/18 12/27/18 21:40 03:40 03:47 POC Glucose 241 H 48 L* 53 L* 12/27/18 12/27/18 12/27/18 04:04 07:41 11:22 POC Glucose 107 H 98 201 H HbA1c:: Hemoglobin A1c 11.1 % (4.5-5.6) H 12/25/18 07:07 - Recent Pertinent Medications The patient is currently receiving: * Basal insulin: Lantus 52 units every 24 hours at dinnertime * Correctional Insulin: Novolog Correction per scale ACHS Goal Range: Low 110 mg/dL - High 140 mg/dL Correction Factor: 15 mg/dL/unit * Prandial insulin: Per carb ratio of 1 unit per 5 grams CHO consumed - Outpatient Anti-Diabetic Meds Lantus 52 units at bedtime Humalog 10/31/13 - Assessment & Plan ASSESSMENT: * See progress note from 12/25/18 for more background info, in short: * Pt receiving SQ basal bolus insulin regimen for hyperglycemia secondary to baseline DM (outpatient regimen on hold). * Patient is currently receiving an average of 133 units of insulin per day * 52 units of basal insulin * 81 units of prandial/correctional insulin * BSGs ranging 64 - 386 mg/dl over the past 24hrs * Changes needed to insulin regimen: * AM Fasting BSG = 98 mg/dl. This is in below goal range for patient based on inpatient targets and co-morbidities. The patient had a low blood sugar overnight at 48 mg/dL --- the patient had very labile blood sugars yesterday. Suspect that this may have been due to insufficient carbohydrate coverage? Concern for giving Lantus 52 units again at this point. Will reduce to 40 units daily at dinnertime. The patient is primarily bolus at this time so this is a concern too. HOWEVER a hypoglycemic event at 0400 is primarily related to basal not bolus. * Post-prandial BSGs are elevated. It appears that the carbohydrate coverage is not enough - tightened to CR of 4 for right now. * Total daily dose = ? units. PLAN FOR INPATIENT GLYCEMIC CONTROL: * DECREASING Lantus 40 units SQ with dinner * Continuing correction factor of 15 mg/dl/unit * TIGHTENING carb ratio to 1 unit per 4 grams CHO consumed * Continuing goal range of Low 110 mg/dL - High 140 mg/dL * Please note that the plan above was derived based on current level of insulin resistance and hospital stress. These recommendations are appropriate for inpatient admission only. Plan of care upon discharge will need to be reassessed to avoid potential outpatient hypo/hyperglycemia. Thank you.
--- NOTE | 2018-12-27 15:21 | Cardiology Progress Note ---
Date of Service December 27, 2018 Assessment & Plan (1) Dizziness: resolved no active cardiac component ok to d/c to home from cardiac standpoint (2) Volume depletion: will defer diuretic management to our nephrology colleagues (3) CKD (chronic kidney disease) stage 4, GFR 15-29 ml/min: nephrology following closely (4) CHF (congestive heart failure): stable (5) Aortic stenosis: borderline severe CKD limits options will cont to observe already scheduled for outpatient echo in February no med changes Subjective Pt seen and examined, states that he feels well. Dizziness has resolved, unfortunately, now having difficulty maintaining blood sugars. Denies cp, sob, palpitations, lightheadedness or dizziness. tele reviewed: sinus rhythm without arrhythmia or significant ectopy. Review of Systems Review of Systems: All systems reviewed & are unremarkable except as noted in HPI & below Physical Exam Physical Exam: General: Awake, alert and oriented x 3. No acute distress. HEENT: Normocephalic, atraumatic. Pupils equal, round and reactive to light and accommodation. Extraocular muscles are intact. Anicteric sclera. Moist mucous membranes. Neck: No JVD. No bruit. Cardiovascular: Regular. Positive S-4. Normal S-1 and S-2. No S-3. 3/6 mid to late systolic ejection murmur, greatest at the right sternal border, second intercostal space with radiation to the bilateral carotids. No rubs. Pulmonary: Clear to auscultation bilaterally. No rales, rhonchi, or wheezing. Abdomen: Bowel sounds x 4, soft. No rebound, guarding or tenderness. No organomegaly. Extremities: No clubbing, cyanosis or edema. +2 pedal pulses bilaterally. Skin: Warm and dry. Results & Data Vital Signs (Past 12 Hours) Vital Signs Temp Pulse Pulse Resp BP BP Pulse Ox 12/27/18 14:31 36.8 C 60 16 106/66 99 12/27/18 11:18 36.6 C 60 16 147/73 H 96 12/27/18 08:53 64 136/79 12/27/18 07:27 36.8 C 62 16 105/68 95 12/27/18 07:00 63 12/27/18 04:17 36.5 C 58 L 18 127/77 95 (1) CHF (congestive heart failure) Heart failure chronicity: unspecified Heart failure type: unspecified Qualified Code(s): I50.9 - Heart failure, unspecified (2) Aortic stenosis Cardiac valve disease etiology: nonrheumatic Qualified Code(s): I35.0 - Nonrheumatic aortic (valve) stenosis
[2018-12-27] MEDS: WARFARIN SOD 5 MG TAB PO SCH (16:01)
--- NOTE | 2018-12-27 16:43 | Hospitalist Progress Note ---
Date of Service December 27, 2018 Assessment & Plan (1) DM type 2 (diabetes mellitus, type 2): Abrupt overt hypoglycemia last night with symptom, History of type 2 diabetes on insulin Presented with hyperglycemia blood sugar more than 500, no DKA, no anion gap, normal beta hydroxy butyrate acid Patient received IV insulin 5 units in the ER, blood sugar improved to 300 Continue basal Lantus and sliding scale, pharmacy consult for glycemic management Appreciate input, Basal Lantus dose adjusted, Dose decreased to 40 units subcu with dinner (was getting 42 units at bedtime Continue to monitor BSG, patient will be staying patient overnight until blood pressure levels stabilized plan of care discussed with patient and his in agreement for 1 extra night of hospital stay We will discharge home tomorrow if blood sugar, blood pressure remains stable (2) Atrial fibrillation: Chronic, rate controlled Continue Toprol-XL, on chronic anticoagulation on Coumadin (3) Dizziness: Resolved after correction of dehydration, blood pressure much stable, denies of dizzy spell or lightheadedness on standing up or walking around Continue to monitor volume status Patient reports he has been having episodes of dizzy spells with standing up sitting up for long time possible there is a component of diabetic neuropathy leading to orthostatic BP drop as well in the setting of very poorly controlled diabetes We will try to adjust patient's pain meds, may benefit with addition of midodrine, will continue to monitor (4) Acute on chronic systolic HF (heart failure): Presented shortness of breath hypoxia, volume overload Secondary to acute on chronic systolic heart failure, last echo showed ejection fraction of 45-50% Patient given IV Lasix x1 in the ER, Cardiology consulted Appreciate input, Diuretics at this point secondary to intravascular volume depletion dispel on standing, postural/orthostatic hypotension Continue to monitor volume status * Continue to monitor strict input and output * (5) Phrqp-nq-hnxyntd kidney injury: Baseline CKD stage IV with creatinine around 2.6-3 Presented with elevated creatinine of 3.5 Received IV Lasix in the ER Continue to monitor renal function creatinine continues to improve 3.53.23.(Approximate baseline) We will continue to monitor Avoid nephrotoxin, NSAIDs, contrast studies (6) ARPIT (obstructive sleep apnea): Noncompliant with BiPAP, utilizes O2 at night Continue 3 L O2 at bedtime (7) Thrombocytopenia: Chronic, Monitor CBC, no evidence of active bleed (8) Peripheral arterial disease: Recent arterial Doppler: Showed hemodynamically significant stenosis in the proximal to midportion of the left posterior tibial artery/left dorsalis pedis artery, patient will need continued outpatient vascular surgery following Continue outpatient meds: Aspirin and statin (Crestor) CODE STATUS: Full code DVT prophylaxis: On Coumadin Disposition: Patient will have a PT OT evaluation prior to discharge to assess for deconditioning Social service consult for discharge planning Subjective Does not have any dizzy spell or lightheadedness today, Had severe hypoglycemic episode last night, felt nauseous diaphoretic, BSG was in 50s, given orange juice Lantus basal dose was reduced, Patient denies shortness of breath, dyspnea on exertion no cough no fever chills Physical Exam Constitutional: WD/WN, vitals as above no acute distress Eyes: PERRL, conjunctivae normal, anicteric sclerae ENMT: external ear and nose normal, oropharynx normal Neck: trachea midline, no thyromegaly Respiratory: no cough Auscultation: + rales (Bibasilar Rales); no wheezes Cardiovascular: RRR, no murmur, no edema Gastrointestinal (Abdomen): normal bowel sounds, soft, nontender, no hepatosplenomegaly Musculoskeletal: no cyanosis or clubbing, extremities motor strength 5/5 Skin: no rashes, warm and dry Neurologic: PERRL, EOMI, accommodation nl, no face palsy, no dysarthria Psychiatric: A+Ox3, euthymic affect Results & Data Vital Signs (Past 12 Hours) Vital Signs Temp Pulse Pulse Resp BP BP Pulse Ox 12/27/18 14:31 36.8 C 60 16 106/66 99 12/27/18 11:18 36.6 C 60 16 147/73 H 96 12/27/18 08:53 64 136/79 12/27/18 07:27 36.8 C 62 16 105/68 95 12/27/18 07:00 63 (1) DM type 2 (diabetes mellitus, type 2) Diabetes mellitus complication detail: with unspecified neuropathy Diabetes mellitus complication status: with neurologic complications Diabetes mellitus detention insulin use: with termite inspector use Qualified Code(s): E11.40 - Type 2 diabetes mellitus with diabetic neuropathy, unspecified; Z79.4 - correction (current) use of insulin (2) Atrial fibrillation Atrial fibrillation type: chronic Qualified Code(s): I48.2 - Chronic atrial fibrillation (3) Upkoa-wz-pmfmzdw kidney injury Acute renal failure type: unspecified Chronic kidney disease stage: unspecified stage Qualified Code(s): N17.9 - Acute kidney failure, unspecified; N18.9 - Chronic kidney disease, unspecified
--- NOTE | 2018-12-27 17:07 | Nephrology Progress Note ---
Date of Service December 27, 2018 Assessment & Plan (1) Acute renal failure superimposed on stage 4 chronic kidney disease: CKD 4 w/ baseline creatinine 2.6-3.0 and 2 gm daily proteinuria. creatinine very labile historically gris as inpt w/ repeated PAM. yesterday w/ improving nonolliguric pam back to upper limit of baseline function -cont 1.5L fluid and 1.5 gm Na restrictions ->>>keep looking for ways to get him to tolerate bipap >> ? trial in house here -daily bmp, q48hr cbc -daily STANDING weight pls w/ I/O -cont customary torsemide 10 mg on , Th, Sat, Sun only and prn wt gain extra 10 mg which happens about once weekly -no indication at this time for emergent dialysis; he is however at high risk longer term to need this Subjective seen on rounds this AM 0800. no worsening sob or edema, not dizzy today; slept well. + labile bG Review of Systems Review of Systems: All systems reviewed & are unremarkable except as noted in HPI & below Physical Exam Constitutional: well developed and well nourished lying flat on RA Eyes: EOM intact bilaterally ENMT: Ears: no external ear abnormality Nose: no external nose abnormality Mouth: + dry oral mucous membranes Neck: no nuchal rigidity Respiratory: normal respiratory effort Auscultation: + diminished lung sounds Cardiovascular: Rate/Rhythm: regular rate and regular rhythm Heart Sounds: no murmur Extremities: + edema (trace BLE) Gastrointestinal (Abdomen): Inspection/Auscultation: normal bowel sounds Percussion/Palpation: abdomen soft; abdomen nontender Musculoskeletal: Extremities: strength 5/5 throughout Skin: no rashes, warm and dry Neurologic: mathew, fluent speech Psychiatric: A+Ox3, euthymic affect Insight: good insight Judgement: good judgement Results & Data Vital Signs (Past 12 Hours) Vital Signs Temp Pulse Pulse Resp BP BP Pulse Ox 12/27/18 14:31 36.8 C 60 16 106/66 99 12/27/18 11:18 36.6 C 60 16 147/73 H 96 12/27/18 08:53 64 136/79 12/27/18 07:27 36.8 C 62 16 105/68 95 12/27/18 07:00 63 Laboratory Results no bmp today; weekend data reviewed (1) Acute renal failure superimposed on stage 4 chronic kidney disease Acute renal failure type: unspecified Qualified Code(s): N17.9 - Acute kidney failure, unspecified; N18.4 - Chronic kidney disease, stage 4 (severe)
[2018-12-27] MEDS ORDERED: INSULIN GLARGINE SOLOSTAR 100 UNITS/ML 3 ML PEN SC SCH (17:30)
[2018-12-27] MEDS: ROSUVASTATIN CALCIUM 20 MG TAB PO SCH (21:04)
[2018-12-28 06:16] LABS: INR 2.2 (0.9-1.1); Prothrombin Time 21.1 Seconds (9.0-12.0)
[2018-12-28] MEDS: ISOSORBIDE DINITRATE 10 MG TAB PO SCH ×2 (06:35→12:32)
[2018-12-28] MEDS: METOPROLOL SUCC 50MG EXT REL TAB PO SCH (08:08)
[2018-12-28] MEDS: CHOLECALCIFEROL 1,000 UNITS TAB PO SCH (08:08)
[2018-12-28] MEDS: PANTOprazole 40 MG TAB PO SCH (08:08)
[2018-12-28] MEDS: ASPIRIN 81 MG ECTAB PO SCH (08:09)
[2018-12-28] MEDS: INSULIN ASPART 100 UNITS/ML 3 ML PEN SC SCH ×2 (08:11→12:32)
[2018-12-28] MEDS: GABAPENTIN 100 MG CAP PO SCH ×2 (08:11→12:32)
--- NOTE | 2018-12-28 15:19 | Pharmacy Report ---
Glycemic Control Progress Note - Date of Service December 28, 2018 - Scope Glycemic Pharmacist consulted for glycemic control to write orders per [facility] inpatient glycemic control protocol. - Objective Accuchecks BSG(last 24 hours):: 12/27/18 12/27/18 12/28/18 16:27 20:07 07:39 POC Glucose 92 232 H 76 12/28/18 11:33 POC Glucose 233 H HbA1c:: Hemoglobin A1c 11.1 % (4.5-5.6) H 12/25/18 07:07 - Recent Pertinent Medications The patient is currently receiving: * Basal insulin: Lantus 40 units every 24 hours * Correctional Insulin: Novolog Correction per scale ACHS Goal Range: Low 110 mg/dL - High 140 mg/dL Correction Factor: 15 mg/dL/unit * Prandial insulin: Per carb ratio of 1 unit per 4 grams CHO consumed - Outpatient Anti-Diabetic Meds LANTUS 52 UNITS HS HUMALOG 10/31/13 - Assessment & Plan ASSESSMENT: * See progress note from 12/25/18 for more background info, in short: * Pt receiving SQ basal bolus insulin regimen for hyperglycemia secondary to baseline DM (outpatient regimen on hold). * Patient is currently receiving an average of 104 units of insulin per day * 40 units of basal insulin * 54 units of prandial/correctional insulin * BSGs ranging 92 - 232 mg/dl over the past 24hrs * Changes needed to insulin regimen: * AM Fasting BSG = 76 mg/dl. This is slightly goal range for patient based on inpatient targets and co-morbidities. This is higher than yesterday's fasting blood sugar. Will continue with Lantus 40 units daily at this time. * Post-prandial BSGs are in range therefore no changes needed to CF/CR. The patient oscillates between 90s and 200s. Checked with patient - he denies eating or drinking anything between meals. CF is sufficient if not too good. Patient does loose insulin from CR when blood sugar is so low. Will decrease goal range to 80 mg/dL so patient does not loose CR. * Total daily dose = 104 units. Once the patient's swinging blood sugars are fixed I believe that this amount if not slightly more will be reasonable. PLAN FOR INPATIENT GLYCEMIC CONTROL: * Continuing Lantus 40 units SQ nightly * Continuing correction factor of 15 mg/dl/unit * Continuing carb ratio of 1 unit per 4 grams CHO consumed * Changing goal range to Low 80 mg/dL - High 140 mg/dL RECOMMENDATIONS FOR DISCHARGE: * Patient struggles at home with compliance as per Tamika Jorge's note. Recommend working with patient to ensure compliance. * For Lantus, the patient is requiring only 40 units of basal compared with 52 units of basal at home with an elevated HbA1C. * Would recommend increasing Novolog to 10 units with breakfast, 15 units with lunch and dinner. * Recommend establishing with [facility] in [place] to review blood sugar log and recommend more thorough dosing. * Please note that the plan above was derived based on current level of insulin resistance and hospital stress. These recommendations are appropriate for inpatient admission only. Plan of care upon discharge will need to be reassessed to avoid potential outpatient hypo/hyperglycemia. Thank you.
--- NOTE | 2018-12-28 15:26 | Discharge Summary ---
Date of Service December 28, 2018 Principal Diagnosis Shortness of breath/COPD exacerbation, type 2 diabetes with hyperglycemia poorly controlled Discharge Exam Constitutional WD/WN, vitals as above no acute distress Eyes PERRL, conjunctivae normal, anicteric sclerae ENMT external ear and nose normal, oropharynx normal Neck trachea midline, no thyromegaly Respiratory no cough Auscultation: + rales (Bibasilar Rales); no wheezes Cardiovascular RRR, no murmur, no edema Gastrointestinal (Abdomen) normal bowel sounds, soft, nontender, no hepatosplenomegaly Musculoskeletal no cyanosis or clubbing, extremities motor strength 5/5 Skin no rashes, warm and dry Neurologic PERRL, EOMI, accommodation nl, no face palsy, no dysarthria Psychiatric A+Ox3, euthymic affect Discharge Data Allergies Allergy/AdvReac Type Severity Reaction Status Date / Time No Known Allergies Allergy Verified 12/24/18 23:01 Consultations 12/24/18 23:01 ED Decision to Admit Stat 12/25/18 03:06 Consult Case Management - Discharge Planning Routine 12/25/18 08:00 Consult Cardiology Routine Consult Nephrology Routine Hospital Course (1) DM type 2 (diabetes mellitus, type 2): \\BSG remains stable appreciate input from Pharmacy pt is stable to be discharged home today insulin regimen adjusted : Lantus continued with Prior dose of 52 U hs Novolog dose increased to 7 U before breakfast and 10 U before lunch and dinner pt is asked to check BSG prior to meal/insulin administration keep log advised to have close follow up with MTM /Diabetic clinic at [facility] pt is willing to follow with diabetic triage register nurse and diet and exercise , life changing interventions History of type 2 diabetes on insulin Presented with hyperglycemia blood sugar more than 500, no DKA, no anion gap, normal beta hydroxy butyrate acid Patient received IV insulin 5 units in the ER, blood sugar improved to 300 Continue basal Lantus and sliding scale, pharmacy consult for glycemic management Appreciate input, Basal Lantus dose adjusted, Dose decreased to 40 units subcu with dinner (was getting 42 units at bedtime Continue to monitor BSG, patient will be staying patient overnight until blood pressure levels stabilized plan of care discussed with patient and his in agreement for 1 extra night of hospital stay We will discharge home tomorrow if blood sugar, blood pressure remains stable (2) Atrial fibrillation: Chronic, rate controlled Continue Toprol-XL, on chronic anticoagulation on Coumadin (3) Dizziness: Resolved after correction of dehydration, blood pressure much stable, denies of dizzy spell or lightheadedness on standing up or walking around Continue to monitor volume status no orthostatic drop of BP Patient reports he has been having episodes of dizzy spells with standing up sitting up for long time possible there is a component of diabetic neuropathy leading to orthostatic BP drop as well in the setting of very poorly controlled diabetes (4) Acute on chronic systolic HF (heart failure): Presented shortness of breath hypoxia, volume overload Secondary to acute on chronic systolic heart failure, last echo showed ejection fraction of 45-50% Patient given IV Lasix x1 in the ER, Cardiology consulted Appreciate input, Diuretics kept on hold " as pt been experiencing intravascular volume depletion /leading to dizzy spell on standing , postural/orthostatic hypotension noted Diuretics kept on hold BP has stabilised with no orthostatic drop pt is seen ambulating independently without any sympotom of dizzy spell or lightheadedness Continue to monitor volume status * Continue to monitor strict input and output * (5) [id number] kidney injury: cr improved to approx baseline Baseline CKD stage IV with creatinine around 2.6-3 Presented with elevated creatinine of 3.5 Received IV Lasix in the ER Continue to monitor renal function creatinine continues to improve 3.53.23.(Approximate baseline) = Avoid nephrotoxin, NSAIDs, contrast studies Nephrology consulted ,appreciate input pt's Torsemide is resumed with the prior dose out pt follow up with family physician (6) ARPIT (obstructive sleep apnea): Noncompliant with BiPAP, utilizes O2 at night Continue 3 L O2 at bedtime (7) Thrombocytopenia: Chronic, Monitor CBC, no evidence of active bleed (8) Peripheral arterial disease: Recent arterial Doppler: Showed hemodynamically significant stenosis in the proximal to midportion of the left posterior tibial artery/left dorsalis pedis artery, patient will need continued outpatient vascular surgery following Continue outpatient meds: Aspirin and statin (Crestor) CODE STATUS: Full code DVT prophylaxis: On Coumadin Disposition:stable to be discharged home today Total Time Total Time Spent Total Time Spent (In Minutes): approx 45 mins Total Time Includes: Examination of the Patient, Discharge Planning and Medication Reconciliation Discharge Plan Discharge Items Patient Disposition: Home - Self-Care Reason For Visit: DIZZY, SOB Discharge Diagnosis: Shortness of breath/COPD exacerbation, type 2 diabetes with hyperglycemia poorly controlled Discharge Goals: Decrease discomfort Activity: Resume your previous activity Non-emergency contact: Primary Care Provider Call non-emergency contact if: you have any medication questions Follow-up/Referrals: Mirlande Melton MD [Primary Care Provider] - 12/31/18 1:00 pm Diet: Carb Consistent or DM2 and Heart Healthy Addtl Provider Instructions: Hospital follow-up with Dr. Adams Pickett on 12/31/2018 at 1 PM INSULIN CHANGE: CONT LANTUS, 52 UNITS BEFORE Increasing Novolog to 10 units with breakfast, 15 units with lunch and dinner. FOLLOW UP WITH [facility] at [facility] in [place] to review blood sugar log and recommend more thorough dosing. Please check your blood sugars and keep log, notify diabetic pharmacy/your family physician if you note blood sugars more than 200 Call your Primary Care doctor if any of the following symptoms or problems start or get worse: * Shortness of breath or difficulty breathing * Wake up at night short of breath * Chest pain * Cough * Swelling of your hands, feet, or legs * More fatigued or tired with your normal activity * Palpitations - sudden fast heart beats WEIGHT * Weigh yourself every morning after using the bathroom. * Use the same scale. * Wear the same amount of clothing. * Write your weight down on a chart. * Call your Primary Care doctor if you gain more than 2-3 pounds in 1-2 days. MEDICATIONS * Use this discharge instruction sheet for medication instructions. * Take your medications at the time your doctor ordered. * Do not skip a dose of your medicines. * If you miss a dose of medicine, take it as soon as possible, but DO NOT DOUBLE A DOSE. * Read your medicine information when you get home. * Know all of the side effects of your medicine. If in doubt, ask your pharmacist * Call your Primary Care doctor's office if you have any side effects. * Be sure all of your doctors know what medicine and herbs you take (including cold, flu, and herbal medicine). Take the following with you to your follow-up doctor appointments: * Weight Chart * Medication List * List of questions Do not drink excessive alcohol, beer or wine. Prescriptions: New insulin lispro [Humalog KwikPen Insulin] 100 unit/mL Insulin Pen 15 unit SUBCUT QDL 30 Days Qty: 4.5 RF: 0 insulin lispro [Humalog KwikPen Insulin] 100 unit/mL Insulin Pen 10 unit SUBCUT QDB 30 Days Qty: 3 RF: 0 insulin lispro [Humalog KwikPen Insulin] 100 unit/mL Insulin Pen 15 unit SUBCUT QDD 30 Days Qty: 4.5 RF: 0 Continued isosorbide dinitrate 10 mg Tablet 20 mg PO TIDM RF: 0 metoprolol succinate [Toprol XL] 100 mg Tablet Extended Release 24 Hr 100 mg PO DAILY RF: 0 aspirin 81 mg Tablet,Delayed Release (Dr/Ec) 81 mg PO DAILY RF: 0 pantoprazole [Protonix] 40 mg Tablet,Delayed Release (Dr/Ec) 40 mg PO DAILY RF: 0 rosuvastatin [Crestor] 40 mg Tablet 40 mg PO HS RF: 0 Lantus Solostar U-100 Insulin 100 unit/mL (3 mL) Insulin Pen 52 units SUBCUT HS RF: 0 cholecalciferol (vitamin D3) [Vitamin D3] 2,000 unit Capsule 2,000 unit PO DAILY RF: 0 hydralazine 25 mg tablet 25 mg PO TIDM RF: 0 gabapentin 100 mg Capsule 100 mg PO TIDM RF: 0 ipratropium-albuterol 0.5 mg-3 mg(2.5 mg base)/3 mL Solution For Nebulization 3 ml INHALATION QID PRN (Reason: Shortness Of Breath Or Wheezing) RF: 0 albuterol sulfate [ProAir HFA] 90 mcg/actuation Hfa Aerosol Inhaler 2 puff INHALATION Q4H PRN (Reason: Shortness Of Breath Or Wheezing) RF: 0 fluticasone propionate [Flonase Allergy Relief] 50 mcg/actuation [place],Suspension 2 spray INTRANASAL DAILY PRN (Reason: Nasal Congestion) RF: 0 Breo Ellipta 100-25 mcg/dose Blister With Device 1 inh INHALATION DAILY RF: 0 warfarin 5 mg tablet 5 mg PO DAILY RF: 0 torsemide 10 mg Tablet 10 mg PO SUTUTHSA RF: 0 torsemide 10 mg Tablet See Rx Instructions .ROUTE .COMPLEX PRN (Reason: Edema) RF: 0 Stand-Alone Forms: [facility] Discharge Orders: Discharge Order (Routine); Ordered 12/28/18 Ordered By: Bell Kay Admission Data Admit Date/Time: 12/27/18 15:55 Attending Provider: Bell Kay Admit Provider: Yovanny Desai Primary Care Provider: Mirlande Melton Other Providers: Yovanny Desai ; Gerald Mittal ; Kathleen Bosch Service: Telemetry Medical Other Interventions: Discharge Summary Assessment (RN) Last Done: 12/28/18 15:30 DC Date/Time DO NOT enter until pt leaves facility: 12/28/18 16:31
[2018-12-28] MEDS: WARFARIN SOD 5 MG TAB PO SCH (15:27)
--- NOTE | 2019-01-21 06:44 | Coding Query ---
CODING QUERY To promote full compliance with coding requirements relating to patient care, provider participation is requested in all cases of stem lead former uncertainty. Please assist us with the question(s) below: Coding Question(s): There is documentation that the patient was admitted with Dizziness with Cardiology Consultation documenting likely due to Benign Positional Vertigo and Hospitalist documenting Dizziness with Orthostatic Hypotension. There is documentation on the last Progress Note and Discharge Summary regarding the Orthostatic Hypotension of, "Patient reports he has been having episodes of dizzy spells with standing up sitting up for long time possible there is a component of diabetic neuropathy leading to orthostatic BP drop as well in the setting of very poorly controlled diabetes" and also documentation of, "Diuretics kept on hold " as pt been experiencing intravascular volume depletion /leading to dizzy spell on standing, postural/orthostatic hypotension noted". Please clarify below, in your clinical opinion, the most likely etiology of the Dizziness. ( ) Dizziness, with most likely etiology of Orthostatic Hypotension. Please specify further below. ( ) Orthostatic Hypotension, most likely etiology is from possible Diabetic Neuropathy leading to orthostatic BP drop ( ) Orthostatic Hypotension, most likely etiology is from Diabetes with Hyperglycemia ( x) Orthostatic Hypotension, most likely from adverse effect of Diuretic medication ( ) Orthostatic Hypotension, most likely from Other: Please Specify ( ) Dizziness, with most likely etiology of Benign Positional Vertigo ( ) Dizziness, with most likely etiology of Other: Please Specify Physician's Response(s): pts symptom improved after holding diuretics and giving IVF Thank you Lupe Saleh Principal Diagnosis: "that condition established after study, to be chiefly responsible for occasioning the admission of the patient to the hospital for care." Co-Existing Principal Diagnosis: "when two or more diagnoses equally meet the criteria for principal diagnosis as determined by the circumstances of admission, diagnostic work up, and/or therapy provided, and the Alphabetic Index, Tabular List, or another coding guideline does not provide sequencing direction, any one of the diagnoses may be sequenced first." "When the physician has documented what appears to be a current diagnosis in the body of the record, but has not included the diagnosis in the final diagnostic statement, the physician should be asked whether the diagnosis should be added." (Source Coding Clinic 2 QTR90. p3-4) NICOLE
== END 2018-12-28 16:31 | disposition home or self-care (01) | DRG 312 ==
LOC: ED 20:36 → 2N 20:36

== ENCOUNTER 2019-06-05 00:31 | Observation (INO) ==
[2019-06-05 01:57] LABS: Basophils # (auto) 0.02 K/uL (0-0.2); Basophils % (auto) 0.3 %; Eosinophils % (auto) 1.5 %; Hematocrit (blood only) 34.7 % (42-52); Hemoglobin 11.5 g/dL (14.0-18.0); Immature Granulocytes # (auto) 0.02 K/uL (0.00-0.02); Immature Granulocytes % (auto) 0.3 %; Lymphocytes # (auto) 0.92 K/uL (1.2-3.4); Lymphocytes % (auto) 13.6 %; Mean Corpuscular Hemoglobin 25.7 pg (25-34); Mean Corpuscular Hgb Conc 33.1 g/dL (32-36); Mean Corpuscular Volume 77.6 fL (80-100); Mean Platelet Volume 9.5 fL (7.4-10.4); Monocytes # (auto) 0.56 K/uL (0.11-0.59); Monocytes % (auto) 8.3 %; Neutrophils # (auto) 5.16 K/uL (1.4-6.5); Platelet Count 126 K/uL (130-400); RDW Coefficient of Variation 16.4 % (11.5-14.5); RDW Standard Deviation 46.8 fL (36.4-46.3); Red Blood Count 4.47 M/uL (4.7-6.1); White Blood Count 6.78 K/uL (4.8-10.8)
[2019-06-05 02:09] LABS: Partial Thromboplastin Ratio 1.1; Partial Thromboplastin Time 30.8 Seconds (21.0-31.0); Prothrombin Time 19.1 Seconds (9.0-12.0)
[2019-06-05 02:15] LABS: Albumin Level 3.5 gm/dl (3.4-5.0); BUN Creatinine Ratio 15.8 (10-20); Bilirubin Direct 0.1 mg/dl (0-0.2); Calcium 8.9 mg/dl (8.5-10.1); Creatinine Clr Calc Pharmacy 36.3 ml/min; Est GFR (African American) 29.3; Est GFR (Non-African American) 25.2; Magnesium 1.9 mg/dl (1.8-2.4)
[2019-06-05 02:35] LABS: Bilirubin,Total 0.8 mg/dl (0.2-1); Total Protein 7.2 gm/dl (6.4-8.2); Troponin I 0.064 ng/ml (0-0.045)
[2019-06-05] MEDS ORDERED: FUROSEMIDE 40 MG/4 ML VIAL IV STA (02:40)
[2019-06-05] MEDS ORDERED: INSULIN HUMAN REGULAR IV STA (02:40)
[2019-06-05] MEDS ORDERED: ASPIRIN 81 MG CHEW PO STA (02:40)
[2019-06-05] MEDS ORDERED: NovoLIN-R INSULIN PER UNIT CHARGE IV STA (02:48)
--- NOTE | 2019-06-05 03:20 | History & Physical Report ---
Date of Service June 05, 2019 Assessment & Plan (1) Dizziness: Multifactorial : Uncontrolled hypertension Diarrheal illness rule out C. difficile Transient chest pain yesterday afternoon Possibly from uncontrolled hypertension Troponin elevation secondary to uncontrolled blood pressure in the setting of chronic kidney disease hx chronic systolic/diastolic CHF (congestive heart failure) EF 45 to 50%, TTE 2019) status post ICD Patient euvolemic to dry A. fib on Coumadin, paced rhythm, INR therapeutic chronic LBBB History nonocclusive CAD/PVD as per records hx moderate aortic stenosis on recent TTE hx COPD/ARPIT/pulmonary hypertension as per records; lung status at baseline CRI, creatinine at baseline chronic anemia secondary to CKD, hemoglobin better than baseline Chronic thrombocytopenia DM 2 insulin requiring suboptimal control as of recent outpatient hemoglobin A1c of April 2019 OBS PCU Titrate home BP meds Check stool for C. difficile Resume home diuretic Rx once volume status improved Basal insulin, ISS BG goal 140-180, carb count coverage DVT prophylaxis. Coumadin INR between 2 and 3 Full code History of Present Illness Chief Complaint: Dizziness, high blood pressure Primary Care Provider: Mirlande Pickett MD History obtained from patient and records. Medical history significant for chronic systolic/diastolic heart failure secondary to nonischemic cardiomyopathy (EF of 45-50%, TTE 2019) status post ICD, chronic LBBB, hx nonocclusive CAD, PVD as per records, A. fib on Coumadin, hx moderate aortic stenosis, hypertension, COPD as per records, ARPIT, DM 2 insulin requiring, chronic renal insufficiency (baseline creatinine of 2.6-3), chronic anemia (baseline hemoglobin of 11-12), chronic thrombocytopenia, past tobacco abuse Recent confinement December 2018 for COPD exacerbation. Yesterday morning patient woke up with abdominal cramping, nausea, vomiting, watery diarrhea symptoms. No fever, no chills. Possible sick contacts. No recent travel, no recent antibiotics. Transient achy left-sided chest pain yesterday with some shortness of breath without other symptoms. Denies unusual weight gain or fluid retention. Compliant with home meds. This morning patient woke up with dizziness and lightheadedness symptoms. No unusual headaches as per patient. Patient received IV Lasix at the ER for possible CHF. Medical History as above TTE 03/2019 The qualitative LV ejection fraction is 45-49% (mildly reduced). The LV wall thickness is severely increased (concentric). The septal motion is abnormal consistent with intrventricular conduction delay. The remaining left ventricular wall segments are mildly hypokinetic. The aortic valve is moderately calcified. Moderate aortic valve stenosis is present. Mild aortic valve regurgitation is present. Mild tricuspid regurgitation is present. The aortic root and proximal ascending aorta are mildly enlarged. Compared to last available study changes are noted as follows: Aortic valve systolic gradients have mildly increased. 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 Allergies Allergy/AdvReac Type Severity Reaction Status Date / Time No Known Allergies Allergy Verified 06/05/19 02:18 Home Medications Home Medications Medication Instructions Recorded Confirmed Type Lantus Solostar U-100 Insulin 50 units SUBCUT HS 02/05/18 06/05/19 History aspirin 81 mg PO DAILY 02/05/18 06/05/19 History cholecalciferol (vitamin D3) 2,000 unit PO DAILY 02/05/18 06/05/19 History [Vitamin D3] isosorbide dinitrate 20 mg PO TIDM 02/05/18 06/05/19 History metoprolol succinate [Toprol XL] 100 mg PO DAILY 02/05/18 06/05/19 History pantoprazole [Protonix] 40 mg PO DAILY 02/05/18 06/05/19 History rosuvastatin [Crestor] 40 mg PO HS 02/05/18 06/05/19 History gabapentin 100 mg PO TIDM 05/14/18 06/05/19 History hydralazine 25 mg PO TIDM 05/20/18 06/05/19 History Breo Ellipta 1 inh INHALATION DAILY 08/01/18 06/05/19 History albuterol sulfate [ProAir HFA] 2 puff INHALATION Q4H PRN 08/01/18 06/05/19 History fluticasone propionate [Flonase 2 spray INTRANASAL DAILY PRN 08/01/18 06/05/19 History Allergy Relief] ipratropium-albuterol 3 ml INHALATION QID PRN 08/01/18 06/05/19 History warfarin 5 mg PO DAILY 10/03/18 06/05/19 History torsemide 10 mg PO SUTUTHSA 12/24/18 06/05/19 History torsemide See Rx Instructions .ROUTE 12/25/18 06/05/19 History .COMPLEX PRN insulin lispro [Humalog KwikPen 15 unit SUBCUT DIRECTED 06/05/19 06/05/19 History Insulin] Past Med/Surg History Social History Preferred Language: Macedonian Communication Ability: Effective Visual Impairment: Limited Cra Required: No Beliefs That Will Affect Care: None marital status: Current Living Situation: Spouse current occupational status: retired 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 Feels Safe at Home: Yes Smoking Status: Never smoker Tobacco Type: smokeless tobacco ; Cigarettes Per Day: 1 can per day ; Second Hand Exposure: No ; Hx Alcohol Use: No Hx Substance Use: No Review of Systems Review of Systems: As per HPI, all 10 systems reviewed, all other ROS negative Physical Exam Physical Exam: GENERAL: Comfortable, watching television, obese, no respiratory distress SKIN: Pallor , warm HEENT: Bespectacled, pale palpebral conjunctivae, no ptosis, dry buccal mucosa NECK : Supple, no tenderness CHEST : Decreased breath sounds , no tenderness HEART : RRR, systolic murmur ABDOMEN: abd distention, nontender EXTREMITIES : Minimal LE swelling, no LE tenderness, no other conspicuous deformities noted NEUROLOGIC : Coherent, no facial asymmetry, no other gross focality Results & Data Vital Signs (Past 12 Hours) Vital Signs Temp Pulse Pulse Resp BP BP Pulse Ox 06/05/19 02:58 62 18 96 06/05/19 02:56 60 20 183/98 H 96 06/05/19 01:53 61 18 138/107 H 98 06/05/19 00:53 36.6 C 76 18 168/97 H 95 Laboratory Results Laboratory Results WBC 6.78 K/uL (4.8-10.8) 06/05/19 00:38 RBC 4.47 M/uL (4.7-6.1) L 06/05/19 00:38 Hgb 11.5 g/dL (14.0-18.0) L 06/05/19 00:38 Hct 34.7 % (42-52) L 06/05/19 00:38 MCV 77.6 fL (80-100) L 06/05/19 00:38 MCH 25.7 pg (25-34) 06/05/19 00:38 MCHC 33.1 g/dL (32-36) 06/05/19 00:38 RDW Std Deviation 46.8 fL (36.4-46.3) H 06/05/19 00:38 RDW Coeff of Joey 16.4 % (11.5-14.5) H 06/05/19 00:38 Plt Count 126 K/uL (130-400) L 06/05/19 00:38 MPV 9.5 fL (7.4-10.4) 06/05/19 00:38 Immature Gran % (Auto) 0.3 % 06/05/19 00:38 Neut % (Auto) 76.0 % 06/05/19 00:38 Lymph % (Auto) 13.6 % 06/05/19 00:38 Alexander % (Auto) 8.3 % 06/05/19 00:38 Eos % (Auto) 1.5 % 06/05/19 00:38 Baso % (Auto) 0.3 % 06/05/19 00:38 Immature Gran # (Auto) 0.02 K/uL (0.00-0.02) 06/05/19 00:38 Neut # (Auto) 5.16 K/uL (1.4-6.5) 06/05/19 00:38 Lymph # (Auto) 0.92 K/uL (1.2-3.4) L 06/05/19 00:38 Alexander # (Auto) 0.56 K/uL (0.11-0.59) 06/05/19 00:38 Eos # (Auto) 0.10 K/uL (0-0.5) 06/05/19 00:38 Baso # (Auto) 0.02 K/uL (0-0.2) 06/05/19 00:38 PT 19.1 Seconds (9.0-12.0) H 06/05/19 00:38 INR 2.0 (0.9-1.1) H 06/05/19 00:38 APTT 30.8 Seconds (21.0-31.0) 06/05/19 00:38 PTT Ratio 1.1 06/05/19 00:38 Sodium 137 mmol/L (136-145) 06/05/19 00:38 Potassium 4.0 mmol/L (3.5-5.1) 06/05/19 00:38 Chloride 103 mmol/L (98-107) 06/05/19 00:38 Carbon Dioxide 27 mmol/L (21-32) 06/05/19 00:38 Anion Gap 7.0 (3-11) 06/05/19 00:38 BUN 40 mg/dl (7-18) H 06/05/19 00:38 Creatinine 2.56 mg/dl (0.6-1.4) H 06/05/19 00:38 Est Cr Clr Drug Dosing 36.3 ml/min 06/05/19 00:38 Est GFR ( Amer) 29.3 06/05/19 00:38 Est GFR (Non-Af Amer) 25.2 06/05/19 00:38 BUN/Creatinine Ratio 15.8 (10-20) 06/05/19 00:38 Glucose 289 mg/dl (70-99) H 06/05/19 00:38 Calcium 8.9 mg/dl (8.5-10.1) 06/05/19 00:38 Magnesium 1.9 mg/dl (1.8-2.4) 06/05/19 00:38 Total Bilirubin 0.8 mg/dl (0.2-1) 06/05/19 00:38 Direct Bilirubin 0.1 mg/dl (0-0.2) 06/05/19 00:38 AST 15 U/L (15-37) 06/05/19 00:38 ALT 21 U/L (12-78) 06/05/19 00:38 Alkaline Phosphatase 64 U/L (45-117) 06/05/19 00:38 Troponin I 0.064 ng/ml (0-0.045) H* 06/05/19 00:38 NT-Pro-B Natriuret Pep 9258 pg/ml (0-900) H 06/05/19 00:38 Total Protein 7.2 gm/dl (6.4-8.2) 06/05/19 00:38 Albumin 3.5 gm/dl (3.4-5.0) 06/05/19 00:38 Lipase 66 U/L (73-393) L 06/05/19 00:38 Diagnostic Findings Chest x-ray as per my interpretation: Atelectasis, cardiomegaly CT head initial read: Chronic small vessel disease. No evidence of acute large vessel infarct or intracranial hemorrhage. CT abdomen pelvis initial read: Cardiomegaly with coronary calcifications. Gallbladder sludge with out pericholecystic inflammation. 3.7 cm left renal cyst. No hydronephrosis. Normal appendix. No acute inflammatory changes within mesenteric fat. EKG as per my interpretation rate 70, paced rhythm
[2019-06-05] MEDS ORDERED: HydrALAZINE HCL 20 MG/ML VIAL IV STA (03:23)
[2019-06-05] MEDS: METOPROLOL SUCC 50MG EXT REL TAB PO SCH (04:16)
[2019-06-05] MEDS ORDERED: INSULIN GLARGINE SOLOSTAR 100 UNITS/ML 3 ML PEN SC STA (04:24)
[2019-06-05 04:32] LABS: Appearance Urine Cloudy (Clear); Bacteria Urine Automated Negative (Negative); Bilirubin Urine Negative (Negative); Blood Urine Trace (Negative); Cast Urine Automated 0 /lpf (0-5); Color Urine Yellow; Epithelial Cell Urine Auto >30 /lpf (0-5); Glucose Urine UA 3+ (Negative); Ketones Urine Negative (Negative); Leukocyte Esterase Urine Negative (Negative); Nitrite Urine Negative (Negative); Protein Urine 3+ (Negative); Specific Gravity Urine 1.018 (1.000-1.030); Urobilinogen Urine Negative (Negative)
[2019-06-05] MEDS ORDERED: HYDROmorphone INJ 0.5 MG/0.5 ML SYR IV PRN (04:43)
[2019-06-05] MEDS ORDERED: PROMETHAZINE HCL 12.5 MG in SODIUM CHLORIDE 0.9% 50 ML IV PRN (04:43)
[2019-06-05] MEDS ORDERED: GLUCOSE 10 TABS/TUBE PO PRN (04:43)
[2019-06-05] MEDS ORDERED: DEXTROSE 50% 50 ML SYRINGE IV PRN (04:43)
[2019-06-05] MEDS ORDERED: GLUCOSE 40% GEL 15 GM TUBE PO PRN (04:43)
[2019-06-05] MEDS ORDERED: TRAMADOL HCL 50 MG TABLET PO PRN (04:43)
[2019-06-05] MEDS ORDERED: ACETAMINOPHEN 325 MG TAB PO PRN (04:43)
[2019-06-05] MEDS ORDERED: WARFARIN SOD 5 MG TAB PO ONE (04:43)
[2019-06-05] MEDS ORDERED: NITROGLYCERIN SL 0.4 MG/TAB TAB SL PRN (04:43)
[2019-06-05] MEDS ORDERED: GLUCAGON FOR INJ 1 MG VIAL SQ PRN (04:43)
[2019-06-05] MEDS ORDERED: CARBOHYDRATES FOR HYPOGLYCEMIA PO PRN (04:43)
[2019-06-05] MEDS: INSULIN ASPART 100 UNITS/ML 3 ML PEN SC SCH ×4 (05:17→20:08)
--- NOTE | 2019-06-05 05:50 | Emergency Department Note ---
Entered by Farrukh Cutler acting as a scribe for Dank Viera MD ED Provider Note Name: Willis Delarosa Age: 64 Arrives Via: EMS Informant: Patient CC: SOB HPI: The patient is a 64 year old male who presents to the emergency department with complaints of worsening SOB beginning a few days ago. The patient states that he became dizzy and SOB last night. He notes that his symptoms worsen with exertion. He reports that he also had resolved chest pain yesterday. He also complains of diarrhea, weakness, nausea, and vomiting. The patient states that he had an episode of nausea and vomiting earlier tonight. He denies any fever, calf pain, and calf swelling. He notes that he has a pacemaker, and he reports that he has a history of CHF. ROS: See above HPI for pertinent positives & negatives. A total of 10 systems reviewed and were otherwise negative. Past Medical History: CHF, pacemaker, aortic stenosis, CAD, Afib, asthma, anemia, diabetes, GERD, hypertension, ckd Past Surgical History: Cardiac catheterization Family History: Diabetes, hypertension, lung cancer Social History: , lives with family, never smoker, does not use al cohol/drugs Home Medications: Please see medication list Allergies: None Physical: Vitals: BP 168/97, Pulse 76, Resp 18, Temp 97.7 F, O2 Sat 95 Exam: GENERAL: Patient is tired appearing and in no acute distress. EYES: No scleral icterus, unremarkable pupils. ENT: Mucous membranes dry, no nasal congestion. NECK: No masses appreciated, no meningismus, trachea is midline. RESPIRATORY: No dyspnea. No wheeze, no rhonchi. Crackles at the bases of both lungs. CARDIOVASCULAR: Regular rate and rhythm. No murmurs, rubs, gallops appreciated. GASTROINTESTINAL: Abdomen soft, non-tender, no peritonitis. Bowel sounds positive. No masses appreciated. BACK: No midline tenderness, no CVA tenderness EXTREMITIES: Normal motion all extremities, no cyanosis, no edema. NEUROLOGIC: Alert and oriented, no acute motor or sensory deficits, no focal weakness, cranial nerves grossly intact. SKIN: No rash, no jaundice, no diaphoresis. ED Course: Prior Medical Record, Triage/Nursing Notes, Medications, Allergies reviewed by Me 0035: The patient was evaluated in room B2. A complete history and physical exam was performed. 0150: I rechecked the patient. He is starting to feel better and has no significant complaints at this time. 0240: I reevaluated and updated the patient. He is feeling well and is agreeable to hospitalization. 0241: Dr. Vazquez [facility], was paged. 0243: Upon reevaluation, the patient is stable. I discussed the findings and the treatment plan with the patient. He expresses agreement and understanding. I spoke with Dr. Vazquez of the [facility]. The patient will be evaluated for further management. Vital Signs: reviewed and remarkable for HTN Labs: Reviewed and remarkable for +trop in setting of moderate renal failure, elevated BNP, elevated BSG Interventions: Saline Lock, Lasix 20meq IV, Insulin 6U IV, ASA 324mg PO Imaging: CHEST X-RAY: X ray results are stated below per my interpretation: Chest: 1 view: No infiltrate, no effusion, large cardiac border. Modest congesti ve findings similar to previous CXR EKG: Per My Interpretation: Indication chest Pain: AV dual paced 71 bpm, qtc 554. No Ectopy. No Ischemia. Compared to EKG 12/24/18, no significant changes. Consults: 0243: I reviewed the patient's case with George Draper - [facility]. He will evaluate the patient for further management. Blood pressure: Elevated - Will be monitored by hospitalist. Disposition: Hospitalization Differential diagnoses includes but is not limited to acute coronary syndrome, myocardial infarction, pericarditis, pulmonary embolus, aortic dissection, pneumonia, pneumothorax, musculoskeletal, shingles, esophageal. Medical Decision Makin yr old male with extensive PMH of CHF, CAD, Afib, Asthma, CKD, GERD, HTN, Aortic Stenosis, DMII, arrives with multiple vague complaints, primarily being nausea, vomiting, diarrhea, generalized weakness, and admitting episode of left band like chest pain earlier. No current CP and bp improving without intervention. Mild CHF on exam and CXR consistent with this. EKG without ischemia and similar to previous though trop mildly bumped which may be CKD though previously Trop has been zero. BSG elevated consistent with dietary non- discretion. Will treat with lasix, given does asa while awaiting cardiac rule out, and insulin IV for hyperglycemia. Will bring in due to chest pain earlier in setting of mild trop elevation. Hospitalist in to evaluate further. Impression: Elevated troponin CHF (congestive heart failure) Hyperglycemia Left-sided chest pain Gastroenteritis Dank Viera MD The scribe's documentation has been prepared under my direction and personally reviewed by me in its entirety. I confirm that the note above accurately ref lects all work, treatment, procedures, and medical decision making performed by me. 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 Other Information That Helps Us Care for You: No Feels Safe at Home: Yes Safety Concerns: Feels Safe At This Time Smoking Status: Never smoker Tobacco Type: cigarettes ; Cigarettes Per Day: 1 can per day ; Do You Dip or Chew Tobacco: Yes ; Second Hand Exposure: No ; Tobacco Cessation Education Requested by Patient: No Hx Alcohol Use: No Hx Substance Use: No Results & Data Vital Signs Vital Signs - 24 hr 06/05/19 00:53 06/05/19 01:53 06/05/19 02:56 Temperature 36.6 C Temperature Source Oral Pulse Rate 76 Pulse Rate [Finger] 61 60 Pulse Rhythm Regular Pulse Rhythm [Finger] Regular Regular Pulse Strength Normal Pulse Strength [Finger] Normal Normal Respiratory Rate 18 18 20 Respiratory Effort / Characteristics Non-Labored Spontaneous Non-Labored Spontaneous Non-Labored Spontaneous Respiratory Depth Normal Normal Normal Respiratory Pattern Regular Regular Regular Blood Pressure 168/97 H Blood Pressure [Left Arm] 138/107 H 183/98 H Blood Pressure Mean 120 Blood Pressure Mean [Left Arm] 117 126 Blood Pressure Position Lying Blood Pressure Position [Left Arm] Lying Lying Pulse Oximetry 95 98 96 Oxygen Delivery Method Room Air Room Air Room Air Sepsis Recent Fever Within 48 Hours No Sepsis New/Unexplained Change in Mental Status No Sepsis Action Taken by Nursing No Action Required 06/05/19 02:58 Temperature Temperature Source Pulse Rate 62 Pulse Rate [Finger] Pulse Rhythm Regular Pulse Rhythm [Finger] Pulse Strength Pulse Strength [Finger] Respiratory Rate 18 Respiratory Effort / Characteristics Respiratory Depth Respiratory Pattern Blood Pressure Blood Pressure [Left Arm] Blood Pressure Mean Blood Pressure Mean [Left Arm] Blood Pressure Position Blood Pressure Position [Left Arm] Pulse Oximetry 96 Oxygen Delivery Method Room Air Sepsis Recent Fever Within 48 Hours Sepsis New/Unexplained Change in Mental Status Sepsis Action Taken by Nursing Laboratory Data Result diagrams: 06/05/19 00:38 06/05/19 00:38 Lab Results 06/05/19 06/05/19 06/05/19 Range/Units 00:38 00:38 00:38 WBC 6.78 (4.8-10.8) K/uL RBC 4.47 L (4.7-6.1) M/uL Hgb 11.5 L (14.0-18.0) g/dL Hct 34.7 L (42-52) % MCV 77.6 L (80-100) fL MCH 25.7 (25-34) pg MCHC 33.1 (32-36) g/dL RDW Std Deviation 46.8 H (36.4-46.3) fL RDW Coeff of Joey 16.4 H (11.5-14.5) % Plt Count 126 L (130-400) K/uL MPV 9.5 (7.4-10.4) fL Immature Gran % (Auto) 0.3 % Neut % (Auto) 76.0 % Lymph % (Auto) 13.6 % Sibley % (Auto) 8.3 % Eos % (Auto) 1.5 % Baso % (Auto) 0.3 % Immature Gran # (Auto) 0.02 (0.00-0.02) K/uL Neut # (Auto) 5.16 (1.4-6.5) K/uL Lymph # (Auto) 0.92 L (1.2-3.4) K/uL Sibley # (Auto) 0.56 (0.11-0.59) K/uL Eos # (Auto) 0.10 (0-0.5) K/uL Baso # (Auto) 0.02 (0-0.2) K/uL PT 19.1 H (9.0-12.0) Seconds INR 2.0 H (0.9-1.1) APTT 30.8 (21.0-31.0) Seconds PTT Ratio 1.1 Sodium 137 (136-145) mmol/L Potassium 4.0 (3.5-5.1) mmol/L Chloride 103 (98-107) mmol/L Carbon Dioxide 27 (21-32) mmol/L Anion Gap 7.0 (3-11) BUN 40 H (7-18) mg/dl Creatinine 2.56 H (0.6-1.4) mg/dl Est Cr Clr Drug Dosing 36.3 ml/min Est GFR ( Amer) 29.3 Est GFR (Non-Af Amer) 25.2 BUN/Creatinine Ratio 15.8 (10-20) Glucose 289 H (70-99) mg/dl Calcium 8.9 (8.5-10.1) mg/dl Magnesium 1.9 (1.8-2.4) mg/dl Total Bilirubin 0.8 (0.2-1) mg/dl Direct Bilirubin 0.1 (0-0.2) mg/dl AST 15 (15-37) U/L ALT 21 (12-78) U/L Alkaline Phosphatase 64 (45-117) U/L Troponin I 0.064 H* (0-0.045) ng/ml NT-Pro-B Natriuret Pep 9258 H (0-900) pg/ml Total Protein 7.2 (6.4-8.2) gm/dl Albumin 3.5 (3.4-5.0) gm/dl Lipase 66 L (73-393) U/L 06/05/19 Range/Units 03:00 WBC (4.8-10.8) K/uL RBC (4.7-6.1) M/uL Hgb (14.0-18.0) g/dL Hct (42-52) % MCV (80-100) fL MCH (25-34) pg MCHC (32-36) g/dL RDW Std Deviation (36.4-46.3) fL RDW Coeff of Joey (11.5-14.5) % Plt Count (130-400) K/uL MPV (7.4-10.4) fL Immature Gran % (Auto) % Neut % (Auto) % Lymph % (Auto) % Sibley % (Auto) % Eos % (Auto) % Baso % (Auto) % Immature Gran # (Auto) (0.00-0.02) K/uL Neut # (Auto) (1.4-6.5) K/uL Lymph # (Auto) (1.2-3.4) K/uL Sibley # (Auto) (0.11-0.59) K/uL Eos # (Auto) (0-0.5) K/uL Baso # (Auto) (0-0.2) K/uL PT (9.0-12.0) Seconds INR (0.9-1.1) APTT (21.0-31.0) Seconds PTT Ratio Sodium (136-145) mmol/L Potassium (3.5-5.1) mmol/L Chloride (98-107) mmol/L Carbon Dioxide (21-32) mmol/L Anion Gap (3-11) BUN (7-18) mg/dl Creatinine (0.6-1.4) mg/dl Est Cr Clr Drug Dosing ml/min Est GFR ( Amer) Est GFR (Non-Af Amer) BUN/Creatinine Ratio (10-20) Glucose (70-99) mg/dl Calcium (8.5-10.1) mg/dl Magnesium (1.8-2.4) mg/dl Total Bilirubin (0.2-1) mg/dl Direct Bilirubin (0-0.2) mg/dl AST (15-37) U/L ALT (12-78) U/L Alkaline Phosphatase (45-117) U/L Troponin I 0.063 H* (0-0.045) ng/ml NT-Pro-B Natriuret Pep (0-900) pg/ml Total Protein (6.4-8.2) gm/dl Albumin (3.4-5.0) gm/dl Lipase (73-393) U/L Administered Medications Insulin Aspart (Novolog Flexpen) 0 units SC ACHS ALYSIA Stop: 07/05/19 04:42 Last Admin: 06/05/19 05:17 Dose: 2 units Documented by: [id number] Cosigned by: [id number] Metoprolol Succinate (Toprol Xl) 100 mg PO DAILY ALYSIA Stop: 07/05/19 03:24 Last Admin: 06/05/19 04:16 Dose: 100 mg Documented by: [id number] Discontinued Medications Aspirin (Aspirin Chew) 324 mg PO NOW STA Stop: 06/05/19 02:41 Last Admin: 06/05/19 02:52 Dose: 324 mg Documented by: [id number] Furosemide (Lasix) 20 mg IV NOW STA Stop: 06/05/19 02:41 Last Admin: 06/05/19 02:52 Dose: 20 mg Documented by: [id number] Hydralazine HCl (Hydralazine Hcl) 10 mg IV NOW STA Stop: 06/05/19 03:24 Last Admin: 06/05/19 04:03 Dose: 10 mg Documented by: [id number] Insulin Glargine (Lantus Solostar Pen) 20 units SC NOW STA Stop: 06/05/19 04:25 Last Admin: 06/05/19 05:16 Dose: 20 units Documented by: [id number] Cosigned by: [id number] Insulin Human Regular (Novolin R U-100 Per Unit) 6 units IV NOW STA Stop: 06/05/19 02:49 Last Admin: 06/05/19 02:52 Dose: 6 units Documented by: [id number] Cosigned by: [id number] Warfarin Sodium (Coumadin) 5 mg PO NOW ONE Stop: 06/05/19 04:44 Last Admin: 06/05/19 05:18 Dose: 5 mg Documented by: [id number] Discharge Plan Visit Data *Final* Discharge Date/Time: 06/05/19 04:11 Chief Complaint: Dizziness Stated Complaint: dizzy, light headed ED Provider: Dank Viera Discharge Problem: Elevated troponin, CHF (congestive heart failure), Hyperglycemia, Left-sided chest pain, Gastroenteritis Patient Disposition: Admitted As Inpatient Discharge Instructions Interventions: ED Discharge Assessment Last Done: 06/05/19 04:11 Discharge Problem: CHF (congestive heart failure) Qualifiers: Heart failure type: unspecified Heart failure chronicity: unspecified Qualified Code(s): I50.9 - Heart failure, unspecified The scribe's documentation has been prepared under my direction and personally reviewed by me in its entirety. I confirm that the note above accurately reflects all work, treatment, procedures, and medical decision making performed by me.
--- NOTE | 2019-06-05 07:06 | CT Scan Report ---
CT SCAN OF THE ABDOMEN AND PELVIS WITHOUT IV CONTRAST CLINICAL HISTORY: Generalized abdominal pain. Nausea and vomiting. COMPARISON STUDY: Abdominal CT dated 06/01/2017. TECHNIQUE: CT scan of the abdomen and pelvis is performed from the lung bases to the proximal femora. Images are reviewed in the axial, sagittal, and coronal planes. IV contrast was not administered for this examination as per the referring clinician. Note that the examination was performed in suboptim al fashion without oral and IV contrast. A dose lowering technique was utilized adhering to the princ iples of DANA. CT DOSE: 1149.95 mGycm FINDINGS: Lung bases: The heart is enlarged and without pericardial effusion. Pacemaker leads are noted. The co ronary arteries are densely calcified. The lung bases are clear noting dependent atelectasis. There i s a tiny hiatal hernia. Liver: The unenhanced liver is normal in size, contour, and attenuation. There is no intrahepatic artur iary ductal dilatation. Gallbladder: There are small calcified gallstones with no CT evidence of acute cholecystitis. Spleen: Normal in size and attenuation. Pancreas: The unenhanced pancreas is atrophic and grossly unremarkable. Adrenal glands: The left adrenal gland is identified and presumed surgically absent. A 1.3 cm right a drenal nodule meets CT criteria for a fat-containing adenoma. Kidneys: The unenhanced kidneys demonstrate cortical atrophy and are without hydronephrosis. There ar e no renal calculi identified. A 4.1 cm cyst is noted in the left upper pole. Abdominal vasculature: The abdominal aorta is normal in course and caliber noting moderate to advance d atherosclerotic calcification. Bowel: There is no bowel obstruction. Mild fecal retention is noted throughout the colon. The appendi x is well-visualized and normal. Peritoneum: There is no intraperitoneal free air or abdominal ascites. There is a small fat-containin g umbilical hernia. Lymphadenopathy: None. Pelvic viscera: The prostate gland is diminutive and heterogeneous. The bladder is decompressed and g rossly unremarkable. Skeletal structures: The skeletal structures are osteopenic. Mild lumbosacral spondylosis is observed . No lytic or blastic lesions are seen. IMPRESSION: 1. There are no acute infectious or inflammatory findings in the abdomen or pelvis. 2. Cholelithiasis. 3. Cardiomegaly and cardiac pacemaker. 4. Additional findings as above. ACT 112: Negative or not required by law. Electronically signed by: Guerrero Hebert M.D. 06/05/2019 7:05 AM
--- NOTE | 2019-06-05 07:27 | CT Scan Report ---
CT SCAN OF THE BRAIN WITHOUT IV CONTRAST CLINICAL HISTORY: Dizziness. COMPARISON STUDY: CT of the brain dated 05/20/2018. TECHNIQUE: Unenhanced axial CT scan of the brain is performed from the vertex to the skull base. A do se lowering technique was utilized adhering to the principles of ALARA. CT DOSE: 1577.26 mGycm FINDINGS: Brain parenchyma: There are age-related involutional changes noting mild to moderate patchy subcorti gretta and periventricular microangiopathic change. There is no hemorrhage, mass effect, or evidence of acute territorial ischemia by CT criteria. Summers-white matter differentiation is preserved. No extra-a xial fluid collection is seen. Ventricles, sulci, cisterns: Prominent secondary to involutional change. Intracranial vasculature: There is atherosclerotic calcification of the cavernous carotid and vertebr al arteries. Calvarium: Unremarkable. Soft tissues: A 2 cm lipoma is incidentally noted in the right temporoparietal scalp. Sinuses and mastoids: The visualized paranasal sinuses are clear. The mastoid air cells are well pneu matized. Orbits: The bony orbits are grossly intact. IMPRESSION: There is no hemorrhage, mass effect, or evidence of acute territorial ischemia by CT eligio gomes. ACT 112: Negative or not required by law. Electronically signed by: Guerrero Hebert M.D. 06/05/2019 7:26 AM
--- NOTE | 2019-06-05 08:05 | XRay Report ---
SINGLE VIEW CHEST CLINICAL HISTORY: Dyspnea. FINDINGS: An AP, portable, upright chest radiograph is compared to study dated 12/24/2018 and correlate d with chest CT dated 05/15/2018. The examination is degraded by portable technique, apical lordotic p ositioning, and patient rotation. A 3-lead cardiac AICD is unchanged in position. The heart is enlarg ed. The pulmonary vasculature is noncongested. Mild atelectasis is noted at the lung bases. The lungs and pleural spaces are otherwise clear. No pneumothorax is seen. The skeletal structures are osteope ivana. The bony thorax is grossly intact. IMPRESSION: 1. Cardiomegaly and AICD. There is no radiographic evidence of congestive failure. 2. No airspace consolidation or pleural effusion is identified ACT 112: Negative or not required by law. Electronically signed by: Guerrero Hebert M.D. 06/05/2019 8:04 AM
[2019-06-05] MEDS: CHOLECALCIFEROL 1,000 UNITS 25 MCG TAB PO SCH (09:24)
[2019-06-05] MEDS: PANTOprazole 40 MG TAB PO SCH (09:24)
[2019-06-05] MEDS: ASPIRIN 81 MG ECTAB PO SCH (09:24)
[2019-06-05] MEDS: HydrALAZINE TAB 50 MG TAB PO SCH ×3 (09:25→17:01)
[2019-06-05] MEDS: ISOSORBIDE DINITRATE 10 MG TAB PO SCH ×3 (09:25→17:01)
[2019-06-05] MEDS: GABAPENTIN 100 MG CAP PO SCH ×3 (09:25→17:01)
[2019-06-05] MEDS: FLUTICASONE/VILANTEROL 100/25MCG 14 PUFFS/INHALER INH SCH (09:26)
--- NOTE | 2019-06-05 14:18 | Electrocardiogram Report ---
Test Reason : Blood Pressure : / mmHG Vent. Rate : 071 BPM Atrial Rate : 075 BPM P-R Int : 128 ms QRS Dur : 190 ms QT Int : 510 ms P-R-T Axes : 139 141 -20 degrees QTc Int : 554 ms AV dual-paced rhythm Abnormal ECG When compared with ECG of 24-DEC-2018 20:43, Premature ventricular complexes are no longer Present Vent. rate has increased BY 8 BPM Confirmed by Samm Garcia ([id number]) on 06/05/2019 2:17:35 PM Referred By: REFERRED SELF Confirmed By:Samm Garcia
[2019-06-05] MEDS: INSULIN GLARGINE SOLOSTAR 100 UNITS/ML 3 ML PEN SC SCH (20:03)
[2019-06-05] MEDS ORDERED: ROSUVASTATIN CALCIUM 20 MG TAB PO SCH (21:00)
[2019-06-06 06:54] LABS: Basophils # (auto) 0.01 K/uL (0-0.2); Basophils % (auto) 0.2 %; Eosinophils # (auto) 0.13 K/uL (0-0.5); Eosinophils % (auto) 2.2 %; Hematocrit (blood only) 35.9 % (42-52); Hemoglobin 11.5 g/dL (14.0-18.0); Immature Granulocytes # (auto) 0.01 K/uL (0.00-0.02); Immature Granulocytes % (auto) 0.2 %; Lymphocytes # (auto) 0.86 K/uL (1.2-3.4); Lymphocytes % (auto) 14.6 %; Mean Corpuscular Hemoglobin 25.4 pg (25-34); Mean Corpuscular Volume 79.2 fL (80-100); Mean Platelet Volume 9.7 fL (7.4-10.4); Monocytes # (auto) 0.36 K/uL (0.11-0.59); Monocytes % (auto) 6.1 %; Neutrophils # (auto) 4.54 K/uL (1.4-6.5); Neutrophils % (auto) 76.7 %; Platelet Count 110 K/uL (130-400); RDW Coefficient of Variation 16.8 % (11.5-14.5); RDW Standard Deviation 48.6 fL (36.4-46.3); Red Blood Count 4.53 M/uL (4.7-6.1); White Blood Count 5.91 K/uL (4.8-10.8)
[2019-06-06 07:02] LABS: INR 2.7 (0.9-1.1); Prothrombin Time 25.9 Seconds (9.0-12.0)
[2019-06-06 07:30] LABS: BUN Creatinine Ratio 14.9 (10-20); Creatinine Clr Calc Pharmacy 31.1 ml/min; Est GFR (African American) 25.1; Est GFR (Non-African American) 21.6
[2019-06-06 07:37] LABS: Estimated Average Glucose 252 mg/dl; Hemoglobin A1C 10.4 % (4.5-5.6)
[2019-06-06] MEDS: GABAPENTIN 100 MG CAP PO SCH ×2 (08:11→12:11)
[2019-06-06] MEDS: FLUTICASONE/VILANTEROL 100/25MCG 14 PUFFS/INHALER INH SCH (08:11)
[2019-06-06] MEDS: ISOSORBIDE DINITRATE 10 MG TAB PO SCH ×2 (08:12→12:11)
[2019-06-06] MEDS: HydrALAZINE TAB 50 MG TAB PO SCH ×2 (08:12→12:11)
[2019-06-06] MEDS: ASPIRIN 81 MG ECTAB PO SCH (08:13)
[2019-06-06] MEDS: CHOLECALCIFEROL 1,000 UNITS 25 MCG TAB PO SCH (08:13)
[2019-06-06] MEDS: PANTOprazole 40 MG TAB PO SCH (08:13)
[2019-06-06] MEDS: METOPROLOL SUCC 50MG EXT REL TAB PO SCH (08:13)
[2019-06-06] MEDS: INSULIN GLARGINE SOLOSTAR 100 UNITS/ML 3 ML PEN SC SCH (08:14)
[2019-06-06] MEDS: INSULIN ASPART 100 UNITS/ML 3 ML PEN SC SCH ×2 (08:16→12:06)
--- NOTE | 2019-06-06 14:18 | Hospitalist Progress Note ---
Date of Service June 06, 2019 Assessment & Plan (1) Gastroenteritis: Presented with nausea, vomiting, diarrhea. No acute findings on CT. Probable viral gastroenteritis. Symptoms resolved. Diet advanced. (2) Dizziness: Probable lightheadedness due to volume depletion. No acute findings on CT of head. Resolved. (3) Elevated troponin: Minimal elevation of serum troponin I attribute to acute viral illness. (4) CAD (coronary artery disease): No anginal symptoms. Continue usual meds. (5) Atrial fibrillation: Currently in paced rhythm. Continue metoprolol and warfarin. (6) Chronic systolic (congestive) heart failure: History of chronic left ventricular systolic heart failure. Compensated. Diuretics held for 2 days due to GI symptoms and resumed at time of discharge. Continue metoprolol succinate and lisinopril. (7) CKD (chronic kidney disease) stage 4, GFR 15-29 ml/min: Baseline creatinine around 3. Diuretics held for 2 days because of GI symptoms. Creatinine day of discharge 2.91. Follow. (8) DM type 2 (diabetes mellitus, type 2): DM type 2, complicated by CAD and CKD. Blood sugars running around 200. Hgb A1C 10.4. Will need ongoing education / support with PCP and [facility]. (9) DVT prophylaxis: On warfarin for AF. Ambulating. (10) Discharge planning issues: Discharged to home. Medical f/u with Dr. Henning. Admission and Anticipated Discharge Date Admission Date: June 05, 2019 Subjective Admitted yesterday with nausea, vomiting, diarrhea, dizziness. Feels much better. Diet advanced without difficulty- no further N/V/D. No CP or SOB. Ready to go home. Physical Exam Constitutional: no acute distress Respiratory: no respiratory distress Auscultation: lungs clear to auscultation bilaterally Cardiovascular: Rate/Rhythm: regular rate and regular rhythm Vessels: no JVD Extremities: + edema (trace pretibial); no calf tenderness Gastrointestinal (Abdomen): normal bowel sounds, soft, nontender, no hepatosplenomegaly Skin: no rashes, warm and dry Psychiatric: Orientation: alert and oriented x 3 Results & Data ([facility]) Vital Signs (Past 12 Hours) Vital Signs Temp Pulse Resp BP Pulse Ox 06/06/19 08:24 36.5 C 61 20 159/84 H 93 06/06/19 03:53 36.7 C 58 L 19 127/87 97 Laboratory Results 06/06/19 06:27 06/06/19 06:27 (1) Atrial fibrillation Atrial fibrillation type: chronic Qualified Code(s): I48.2 - Chronic atrial fibrillation (2) DM type 2 (diabetes mellitus, type 2) Diabetes mellitus [facility] insulin use: with termite inspector use Diabetes mellitus complication status: with neurologic complications Diabetes mellitus complication detail: with unspecified neuropathy Qualified Code(s): E11.40 - Type 2 diabetes mellitus with diabetic neuropathy, unspecified; Z79.4 - penitentiary (current) use of insulin
--- NOTE | 2019-06-06 23:24 | Discharge Summary ---
Date of Service Date of Admission: 06/05/19 Date of Discharge: 06/06/19 Admission HPI Per Admitting Provider History obtained from patient and records. Medical history significant for chronic systolic/diastolic heart failure secondary to nonischemic cardiomyopathy (EF of 45-50%, TTE 2018) status post ICD, chronic LBBB, hx nonocclusive CAD, PVD as per records, A. fib on Coumadin, hx moderate aortic stenosis, hypertension, COPD as per records, ARPIT, DM 2 insulin requiring, chronic renal insufficiency (baseline creatinine of 2.6-3), chronic anemia (baseline hemoglobin of 11-12), chronic thrombocytopenia, past tobacco abuse Recent confinement December 2018 for COPD exacerbation. Yesterday morning patient woke up with abdominal cramping, nausea, vomiting, watery diarrhea symptoms. No fever, no chills. Possible sick contacts. No recent travel, no recent antibiotics. Transient achy left-sided chest pain yesterday with some shortness of breath without other symptoms. Denies unusual weight gain or fluid retention. Compliant with home meds. This morning patient woke up with dizziness and lightheadedness symptoms. No unusual headaches as per patient. Patient received IV Lasix at the ER for possible CHF. Principal Diagnosis gastroenteritis Discharge Data Allergies Allergy/AdvReac Type Severity Reaction Status Date / Time No Known Allergies Allergy Verified 06/05/19 02:18 Consultations 06/05/19 02:40 ED Decision to Admit Stat Ordered Studies 06/05/19 03:19 CT abd pelvis wo con Urgent CT head/brain wo con Urgent Hospital Course (1) Gastroenteritis: Presented with nausea, vomiting, diarrhea. No acute findings on CT. Probable viral gastroenteritis. Symptoms resolved. Diet advanced. (2) Dizziness: Probable lightheadedness due to volume depletion. No acute findings on CT of head. Resolved. (3) Elevated troponin: Minimal elevation of serum troponin I attributed to acute viral illness. (4) CAD (coronary artery disease): No anginal symptoms. Continue usual meds. (5) Atrial fibrillation: Currently in paced rhythm. Continue metoprolol and warfarin. (6) Chronic systolic (congestive) heart failure: History of chronic left ventricular systolic heart failure. Compensated. Diuretics held for 2 days due to GI symptoms and resumed at time of discharge. Continue metoprolol succinate and lisinopril. (7) CKD (chronic kidney disease) stage 4, GFR 15-29 ml/min: Baseline creatinine around 3. Diuretics held for 2 days because of GI symptoms. Creatinine day of discharge 2.91. Follow. (8) DM type 2 (diabetes mellitus, type 2): DM type 2, complicated by CAD and CKD. Blood sugars running around 200. Hgb A1C 10.4. Will need ongoing education / support with PCP and [facility]. (9) DVT prophylaxis: On warfarin for AF. Ambulating. (10) Discharge planning issues: Discharged to home. Medical f/u with Dr. Henning. Total Time Total Time Spent Total Time Spent (In Minutes): 30 Discharge Plan Discharge Items Patient Disposition: Home - Self-Care Reason For Visit: nausea, vomiting, diarrhea, dizziness Discharge Diagnosis: gastroenteritis ("stomach bug") dizziness- no sign of stroke Condition on Discharge: Good Activity: Resume your previous activity Non-emergency contact: Primary Care Provider and Waste Disposal Plant Operator Call non-emergency contact if: you have any medication questions, your symptoms worsen and your temperature is above 101 Follow-up/Referrals: Mirlande Melton MD [Primary Care Provider] - 06/09/19 11:05 am (06/09/2019 11:20 AM Mirlande Pickett MD IF YOU CAN NOT MAKE THIS APT PLEASE CALL THE OFFICE AND RESCHEDULE) Diet: Carb Consistent or DM2, Heart Healthy and Lactose Intolerant Addtl Attending Provider Instructions: MEDICATION CHANGES: none SUMMARY OF TEST RESULTS: CT of head- no sign of stroke. CT of abdomen- few small gallstones. Hemoglobin A1c- 10.4. OTHER INSTRUCTIONS: High hemoglobin A1c tells us that your blood sugars are running too high. Please discuss control of your diabetes with Dr. Henning and [facility] Pharmacists. Seek medical attention if you have: * temperature above 101 * chest pain or trouble breathing * abdominal pain, nausea, vomiting * diarrhea, dark stools or bloody stools * any unanswered questions or concerns Call 911 if symptoms are severe. Please take good care of yourself. Call if you have any questions or problems. You can reach a [facility] hospitalist on duty at [facility] 24 hours a day by calling [phone]. My cell # is [phone]. Pending Studies at Discharge: No Stand-Alone Forms: My [facility], Smoking Cessation Medications and DC Order Prescriptions: Continued isosorbide dinitrate 10 mg Tablet 20 mg PO TIDM RF: 0 metoprolol succinate [Toprol XL] 100 mg Tablet Extended Release 24 Hr 100 mg PO DAILY RF: 0 aspirin 81 mg Tablet,Delayed Release (Dr/Ec) 81 mg PO DAILY RF: 0 pantoprazole [Protonix] 40 mg Tablet,Delayed Release (Dr/Ec) 40 mg PO DAILY RF: 0 rosuvastatin [Crestor] 40 mg Tablet 40 mg PO HS RF: 0 Lantus Solostar U-100 Insulin 100 unit/mL (3 mL) Insulin Pen 60 units SUBCUT DAILY RF: 0 cholecalciferol (vitamin D3) [Vitamin D3] 2,000 unit Capsule 2,000 unit PO DAILY RF: 0 hydralazine 25 mg tablet 25 mg PO QID RF: 0 gabapentin 100 mg Capsule 100 mg PO TIDM RF: 0 ipratropium-albuterol 0.5 mg-3 mg(2.5 mg base)/3 mL Solution For Nebulization 3 ml INHALATION QID PRN (Reason: Shortness Of Breath Or Wheezing) RF: 0 albuterol sulfate [ProAir HFA] 90 mcg/actuation Hfa Aerosol Inhaler 2 puff INHALATION Q4H PRN (Reason: Shortness Of Breath Or Wheezing) RF: 0 fluticasone propionate [Flonase Allergy Relief] 50 mcg/actuation [place],Suspension 2 spray INTRANASAL DAILY PRN (Reason: Nasal Congestion) RF: 0 warfarin 5 mg tablet See Rx Instructions .ROUTE .COMPLEX RF: 0 torsemide 10 mg Tablet 10 mg PO SUTUTHSA RF: 0 torsemide 10 mg Tablet See Rx Instructions .ROUTE .COMPLEX PRN (Reason: Edema) RF: 0 insulin lispro [Humalog KwikPen Insulin] 100 unit/mL Insulin Pen See Rx Instructions .ROUTE .COMPLEX RF: 0 lisinopril 5 mg Tablet 5 mg PO DAILY RF: 0 Vitron-C 65 mg iron- 125 mg Tablet,Delayed Release (Dr/Ec) 1 tab PO BID RF: 0 Discharge Orders: Discharge Order (Routine); Ordered 06/06/19 Ordered By: Arpan Fabian/Other Patient Handouts: Diabetes Jewelry Setter Complications, Diabetes Healthy Meals, Understanding Carbohydrates, Diabetes Exercise Benefits, Diabetes Living Life, Diabetes Manage A1C Test Admission Data Admit Date/Time: 06/05/19 03:24 Attending Provider: Arpan Guzman Admit Provider: Claudio Vazquez Primary Care Provider: Mirlande Melton Other Providers: Claudio Vazquez Other Interventions: Discharge Summary Assessment (RN) Last Done: 06/06/19 14:46 DC Date/Time DO NOT enter until pt leaves facility: 06/06/19 16:04
== END 2019-06-06 16:04 | disposition home or self-care (01) ==
LOC: ED 00:31 → 2S 00:31

== ENCOUNTER 2019-06-30 20:21 | Inpatient (IN) ==
[2019-06-30] MEDS ORDERED: FUROSEMIDE 40 MG/4 ML VIAL IV STA ×2 (20:45→21:34)
[2019-06-30 20:53] LABS: Basophils # (auto) 0.02 K/uL (0-0.2); Basophils % (auto) 0.3 %; Eosinophils # (auto) 0.11 K/uL (0-0.5); Eosinophils % (auto) 1.8 %; Hematocrit (blood only) 33.1 % (42-52); Hemoglobin 10.5 g/dL (14.0-18.0); Immature Granulocytes # (auto) 0.01 K/uL (0.00-0.02); Immature Granulocytes % (auto) 0.2 %; Lymphocytes # (auto) 0.73 K/uL (1.2-3.4); Lymphocytes % (auto) 12.1 %; Mean Corpuscular Hemoglobin 26.1 pg (25-34); Mean Corpuscular Hgb Conc 31.7 g/dL (32-36); Mean Corpuscular Volume 82.1 fL (80-100); Mean Platelet Volume 10.1 fL (7.4-10.4); Monocytes # (auto) 0.56 K/uL (0.11-0.59); Monocytes % (auto) 9.3 %; Neutrophils # (auto) 4.58 K/uL (1.4-6.5); Neutrophils % (auto) 76.3 %; Platelet Count 129 K/uL (130-400); RDW Coefficient of Variation 16.2 % (11.5-14.5); RDW Standard Deviation 49.2 fL (36.4-46.3); Red Blood Count 4.03 M/uL (4.7-6.1); White Blood Count 6.01 K/uL (4.8-10.8)
[2019-06-30 21:00] LABS: Albumin Level 3.2 gm/dl (3.4-5.0); BUN Creatinine Ratio 16.5 (10-20); Calcium 8.7 mg/dl (8.5-10.1); Creatinine Clr Calc Pharmacy 33.3 ml/min; Est GFR (African American) 27.1; Est GFR (Non-African American) 23.4; Magnesium 1.9 mg/dl (1.8-2.4)
[2019-06-30 21:07] LABS: Albumin Globulin Ratio 0.9 (0.9-2); Bilirubin,Total 0.6 mg/dl (0.2-1); Globulin 3.5 gm/dl (2.5-4.0); Total Protein 6.7 gm/dl (6.4-8.2); Troponin I 0.052 ng/ml (0-0.045)
--- NOTE | 2019-06-30 21:08 | XRay Report ---
XR chest 1V portable CLINICAL HISTORY: Dyspnea dyspnea COMPARISON STUDY: 06/05/2019 FINDINGS: Bipolar cardiac pacemaker/defibrillator. Lungs are clear. The diaphragms are smooth. No jonatan dence for focal infiltrate. IMPRESSION: No acute process. ACT 112: Negative or not required by law. The above report was generated using voice recognition software. It may contain grammatical, syntax or spelling errors. Electronically signed by: Billy Phillips M.D. 06/30/2019 9:07 PM
[2019-06-30 21:09] LABS: INR 2.7 (0.9-1.1); Partial Thromboplastin Ratio 1.3; Partial Thromboplastin Time 37.2 Seconds (21.0-31.0); Prothrombin Time 27.3 Seconds (9.0-12.0)
[2019-06-30] MEDS ORDERED: LABETALOL HCL IV 5 MG/ML 20ML IV STA (21:34)
--- NOTE | 2019-06-30 22:01 | CT Scan Report ---
CT head/brain wo con CT DOSE: 537.48 mGy.cm HISTORY: Mental status change dizzy TECHNIQUE: Multiaxial CT images of the head were performed without the use of intravenous contrast. A dose lowering technique was utilized adhering to the principles of ALARA. Comparison: 06/05/2019 Findings: The paranasal sinuses and mastoid air cells are clear. The calvarium and skull base are int act. The ventricles and sulci are within normal limits. There is no mass, hematoma, midline shift, or acute infarct. Mild age-related atrophy and chronic small vessel change. This is unaltered from the prior study. Impression: No acute intracranial abnormality. Stable age-related change. ACT 112: Negative or not required by law. The above report was generated using voice recognition software. It may contain grammatical, syntax or spelling errors. Electronically signed by: Billy Phillips M.D. 06/30/2019 9:59 PM
--- NOTE | 2019-06-30 23:46 | Emergency Department Note ---
ED Provider Note CHIEF COMPLAINT: Shortness of breath, dizziness HISTORY OF PRESENT ILLNESS: Patient is a 64-year-old gentleman history of CHF, atrial fibrillation on Coumadin, CKD, heart failure, aortic stenosis, GERD, asthma, diabetic presenting today via ambulance with a complaint of weight gain, some dizziness, some abdominal distention, some nausea. States over the past several days 3-4 he has had about 11 pound weight increase. Feels breathless like last month when he was admitted, but this just evolved this evening over the last approximately 4 hours the onset of feeling a bit weak with some nausea. Thought his blood sugar might be low And his son called the ambulance. Blood sugar was not low. States compliance with home medications other than take this evening's medication. Denies chest pain. States again he feels a bit dizzy. No trauma reported. No fever or URI symptoms reported. Patient was newly significantly hypertensive for EMS and given one nitroglycerin dose. BP 190s systolic in room on evaluation. Developed a headache a little bit after this but this was not present before. States normally his blood pressure is better c ontrolled in this. States compliance with home medication. No travel recently. REVIEW OF SYSTEMS: A total of 10 review of systems was obtained and negative except as stated above in the HPI. PAST MEDICAL HISTORY: As noted above MEDICATIONS: Reviewed the nursing notes and significant for warfarin SOCIAL HISTORY: Former smoker. Lives at home. Nighttime oxygen. PHYSICAL EXAM: GENERAL: alert and oriented in no acute distress on stretcher on NC O2 Head: normocephalic and atraumatic EYES: No injection, discharge or icterus. EOMI. PERRL. NECK: Trachea midline. Supple. ENT: Mucous membranes pink and moist. LUNGS: Airway patent. No retractions. Breath sounds diminished in the bases. HEART: Regular rate and rhythm. No chest wall tenderness ABDOMEN: Soft and non-tender, without guarding or rebound. Mildly distended SKIN: Acyanotic, warm, dry, without rashes EXTREMITIES: No significant tenderness but 1+ lower extremity edema NEUROLOGICAL: No focal deficits. No aphasia. No facial droop or slurred speech. Normal strength and tone in the extremities. EKG: AV dual paced rhythm with a rate of 74 bpm. No significant ischemic ST segment elevation or depression. No PVCs are notable. There is no significant change compared to previous from June 052019. Continues cardiac monitoring shows a AV paced rhythm of 63. Hypertension referred to hospitalist. HOSPITAL COURSE: Patient was first seen at 2036 2144: Patient reassessed and noted to be increasingly hypertensive SBP >200. Still with some compliant of SOB. Not hypoxic. CTH to be completed. Updated on plan of care for additional Lasix, labateol and imaging. 2204: [facility] Hospitalist contacted for further patient evaluations IMPRESSION/MEDICAL DECISION MAKING: Differential Benign hypertension, hypertensive emergency, cardiovascular pathology, toxicologic, pneumonia, pulmonary edema, CVA, ICH, pheochromocytoma, electrolyte abnormality, renal disease, endorgan damage, as well as other pathologies. Patient presents with several different complaints. Not feeling acutely nauseous now. Mildly distended abdomen but otherwise benign and I doubt acute intra-abdominal pathology. Laboratory studies without significant leukocytosis and baseline anemia. INR therapeutic. No significant lecture M allergies. Kidney function at baseline. Slight detectable troponin similar to previous. No evidence of acute hepatic dysfunction. Chest x-ray completed and interpreted by radiology showing no acute process. There is no concerns about fluid overload and given a dose of Lasix here initially. Do not feel this represents influenza. Discussed with the patient options at this time. Patient states f eels similar to last time he is admitted a month ago. Patient's blood pressure continues to be significantly high. Given additional IV Lasix and labetalol here. CT that was completed given his dizziness and the hypertension. Given his uncontrolled hypertension believe hypertension urgency while some fluid overload believe further observation the hospital is reasonable andthe patient wishes for this. Discussed with the hospitalist further care. DIAGNOSIS: Hypertensive urgency, fluid overload, dizziness DISPOSITION: Further observation by hospitalist. Patient was agreeable with this plan. Impression & Plan Hypertensive urgency, Breathlessness, Fluid overload, Dizziness Past Med/Surg History Medical History (Updated 06/30/19 @ 23:40 by Sheng Sinha M.D.) Aortic stenosis (Chronic) Asthma (Chronic) Atrial fibrillation (Chronic) on chronic anticoagulation CAD (coronary artery disease) (Chronic) "nonobstructive" Chronic anemia (Chronic) Chronic systolic (congestive) heart failure (Chronic) Diabetic neuropathy (Chronic) DM type 2 (diabetes mellitus, type 2) (Chronic) Dyslipidemia (Chronic) GERD (gastroesophageal reflux disease) (Chronic) Hypertension (Chronic) LBBB (left bundle branch block) (Chronic) Nocturnal hypoxia (Chronic) on 2L [place] O2 HS Thrombocytopenia (Chronic) Surgical History (Updated 06/06/19 @ 23:13 by Arpan Guzman MD) H/O cardiac catheterization (Inactive) Non nonobstructive CAD on 2017 cardiac cath Presence of combination internal cardiac defibrillator (ICD) and pacemaker (Chr onic) Social History Preferred Language: Kitt[place] Communication Ability: Effective Visual Impairment: Limited Unhairer Required: No Beliefs That Will Affect Care: None marital status: Current Living Situation: Family current occupational status: retired 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 Feels Safe at Home: Yes Smoking Status: Never smoker Tobacco Type: cigarettes ; Second Hand Exposure: No ; Hx Alcohol Use: No Hx Substance Use: No Results & Data Vital Signs Vital Signs - 24 hr 06/30/19 20:25 06/30/19 20:31 06/30/19 20:35 Temperature Temperature Source Pulse Rate 74 72 70 Pulse Rate from SpO2 Sensor 71 69 69 Respiratory Rate 18 19 19 Respiratory Effort / Characteristics Respiratory Depth Blood Pressure 170/110 H 194/103 H Blood Pressure Mean 132 147 Pulse Oximetry 99 99 99 Oxygen Delivery Method Oxygen Flow Rate Sepsis Recent Fever Within 48 Hours Sepsis New/Unexplained Change in Mental Status Sepsis Action Taken by Nursing Oxygen Flow Rate - Titration Pulse Oximetry Post Tiitration 06/30/19 20:38 06/30/19 20:49 06/30/19 21:00 Temperature 36.8 C Temperature Source Oral Pulse Rate 60 60 61 Pulse Rate from SpO2 Sensor Respiratory Rate 22 22 21 Respiratory Effort / Characteristics SOB on Exertion Respiratory Depth Normal Blood Pressure 170/110 H 176/95 H Blood Pressure Mean 130 126 Pulse Oximetry 90 94 Oxygen Delivery Method Nasal Cannula Room Air Oxygen Flow Rate 2 2 Sepsis Recent Fever Within 48 Hours No Sepsis New/Unexplained Change in Mental Status No Sepsis Action Taken by Nursing No Action Required Oxygen Flow Rate - Titration 2 Pulse Oximetry Post Tiitration 96 06/30/19 21:30 06/30/19 21:31 06/30/19 22:01 Temperature Temperature Source Pulse Rate 60 60 82 Pulse Rate from SpO2 Sensor 60 60 85 Respiratory Rate 16 10 L 19 Respiratory Effort / Characteristics Respiratory Depth Blood Pressure 204/105 H Blood Pressure Mean 140 Pulse Oximetry 99 99 91 Oxygen Delivery Method Oxygen Flow Rate Sepsis Recent Fever Within 48 Hours Sepsis New/Unexplained Change in Mental Status Sepsis Action Taken by Nursing Oxygen Flow Rate - Titration Pulse Oximetry Post Tiitration 06/30/19 22:02 Temperature Temperature Source Pulse Rate 74 Pulse Rate from SpO2 Sensor 73 Respiratory Rate 20 Respiratory Effort / Characteristics Respiratory Depth Blood Pressure 177/96 H Blood Pressure Mean 134 Pulse Oximetry 94 Oxygen Delivery Method Oxygen Flow Rate Sepsis Recent Fever Within 48 Hours Sepsis New/Unexplained Change in Mental Status Sepsis Action Taken by Nursing Oxygen Flow Rate - Titration Pulse Oximetry Post Tiitration Laboratory Data Result diagrams: 06/30/19 20:34 06/30/19 20:34 Lab Results 06/30/19 06/30/19 06/30/19 Range/Units 20:34 20:34 20:34 WBC 6.01 (4.8-10.8) K/uL RBC 4.03 L (4.7-6.1) M/uL Hgb 10.5 L (14.0-18.0) g/dL Hct 33.1 L (42-52) % MCV 82.1 (80-100) fL MCH 26.1 (25-34) pg MCHC 31.7 L (32-36) g/dL RDW Std Deviation 49.2 H (36.4-46.3) fL RDW Coeff of Joey 16.2 H (11.5-14.5) % Plt Count 129 L (130-400) K/uL MPV 10.1 (7.4-10.4) fL Immature Gran % (Auto) 0.2 % Neut % (Auto) 76.3 % Lymph % (Auto) 12.1 % [place] % (Auto) 9.3 % Eos % (Auto) 1.8 % Baso % (Auto) 0.3 % Immature Gran # (Auto) 0.01 (0.00-0.02) K/uL Neut # (Auto) 4.58 (1.4-6.5) K/uL Lymph # (Auto) 0.73 L (1.2-3.4) K/uL [place] # (Auto) 0.56 (0.11-0.59) K/uL Eos # (Auto) 0.11 (0-0.5) K/uL Baso # (Auto) 0.02 (0-0.2) K/uL PT 27.3 H (9.0-12.0) Seconds INR 2.7 H (0.9-1.1) APTT 37.2 H (21.0-31.0) Seconds PTT Ratio 1.3 Sodium 139 (136-145) mmol/L Potassium 4.0 (3.5-5.1) mmol/L Chloride 106 (98-107) mmol/L Carbon Dioxide 30 (21-32) mmol/L Anion Gap 3.0 (3-11) BUN 45 H (7-18) mg/dl Creatinine 2.73 H (0.6-1.4) mg/dl Est Cr Clr Drug Dosing 33.3 ml/min Est GFR ( Amer) 27.1 Est GFR (Non-Af Amer) 23.4 BUN/Creatinine Ratio 16.5 (10-20) Glucose 113 H (70-99) mg/dl Calcium 8.7 (8.5-10.1) mg/dl Magnesium 1.9 (1.8-2.4) mg/dl Total Bilirubin 0.6 (0.2-1) mg/dl AST 22 (15-37) U/L ALT 31 (12-78) U/L Alkaline Phosphatase 71 (45-117) U/L Troponin I 0.052 H* (0-0.045) ng/ml Total Protein 6.7 (6.4-8.2) gm/dl Albumin 3.2 L (3.4-5.0) gm/dl Globulin 3.5 (2.5-4.0) gm/dl Albumin/Globulin Ratio 0.9 (0.9-2) Administered Medications Discontinued Medications Furosemide (Lasix) 20 mg IV NOW STA Stop: 06/30/19 20:46 Last Admin: 06/30/19 20:59 Dose: 20 mg Documented by: [id number] Furosemide (Lasix) 40 mg IV NOW STA Stop: 06/30/19 21:35 Last Admin: 06/30/19 21:47 Dose: 40 mg Documented by: [id number] Labetalol HCl (Normodyne) 10 mg IV NOW STA Stop: 06/30/19 21:35 Last Admin: 06/30/19 21:48 Dose: 10 mg Documented by: [id number] Cosigned by: [id number] Discharge Plan Visit Data Chief Complaint: Shortness of Breath/Dyspnea ED Provider: Ernestine,Sheng T Discharge Problem: Hypertensive urgency, Breathlessness, Fluid overload, Dizziness Patient Disposition: Being Evaluated by Hospitalist Forms Stand Alone Forms: My [facility] Prescriptions Prescriptions: No Action isosorbide dinitrate 10 mg Tablet 20 mg PO TIDM RF: 0 metoprolol succinate [Toprol XL] 100 mg Tablet Extended Release 24 Hr 100 mg PO DAILY RF: 0 aspirin 81 mg Tablet,Delayed Release (Dr/Ec) 81 mg PO DAILY RF: 0 pantoprazole [Protonix] 40 mg Tablet,Delayed Release (Dr/Ec) 40 mg PO DAILY RF: 0 rosuvastatin [Crestor] 40 mg Tablet 40 mg PO HS RF: 0 Lantus Solostar U-100 Insulin 100 unit/mL (3 mL) Insulin Pen 60 units SUBCUT DAILY RF: 0 cholecalciferol (vitamin D3) [Vitamin D3] 2,000 unit Capsule 2,000 unit PO DAILY RF: 0 hydralazine 25 mg tablet 25 mg PO QID RF: 0 gabapentin 100 mg Capsule 100 mg PO TIDM RF: 0 ipratropium-albuterol 0.5 mg-3 mg(2.5 mg base)/3 mL Solution For Nebulization 3 ml INHALATION QID PRN (Reason: Shortness Of Breath Or Wheezing) RF: 0 albuterol sulfate [ProAir HFA] 90 mcg/actuation Hfa Aerosol Inhaler 2 puff INHALATION Q4H PRN (Reason: Shortness Of Breath Or Wheezing) RF: 0 fluticasone propionate [Flonase Allergy Relief] 50 mcg/actuation [place],Suspension 2 spray INTRANASAL DAILY PRN (Reason: Nasal Congestion) RF: 0 warfarin 5 mg tablet See Rx Instructions .ROUTE .COMPLEX RF: 0 torsemide 10 mg Tablet 10 mg PO SUTUTHSA RF: 0 torsemide 10 mg Tablet See Rx Instructions .ROUTE .COMPLEX PRN (Reason: Edema) RF: 0 insulin lispro [Humalog KwikPen Insulin] 100 unit/mL Insulin Pen See Rx Instructions .ROUTE .COMPLEX RF: 0 lisinopril 5 mg Tablet 5 mg PO DAILY RF: 0 Vitron-C 65 mg iron- 125 mg Tablet,Delayed Release (Dr/Ec) 1 tab PO BID RF: 0 Referrals Referrals: Mirlande Melton MD [Primary Care Provider] - Discharge Problem: Fluid overload Qualifiers: Hypervolemia type: other Qualified Code(s): E87.79 - Other fluid overload
[2019-06-30 23:59] LABS: Appearance Urine Clear (Clear); Bacteria Urine Automated Negative (Negative); Bilirubin Urine Negative (Negative); Blood Urine Negative (Negative); Color Urine Yellow; Epithelial Cell Urine Auto 0-5 /lpf (0-5); Glucose Urine UA Negative (Negative); Ketones Urine Negative (Negative); Leukocyte Esterase Urine Negative (Negative); Nitrite Urine Negative (Negative); Protein Urine 1+ (Negative); RBC Urine Automated 0-4 /hpf (0-4); Specific Gravity Urine 1.008 (1.000-1.030); Urobilinogen Urine Negative (Negative); WBC Urine Automated 0 /hpf (0-5)
[2019-07-01] MEDS ORDERED: ALBUT/IPRATROP 3MG/0.5MG NEB 3 ML VIAL INH PRN (01:26)
[2019-07-01] MEDS ORDERED: NITROGLYCERIN SL 0.4 MG/TAB TAB SL PRN (01:26)
[2019-07-01] MEDS ORDERED: TORSEMIDE 10 MG TAB PO PRN (01:26)
[2019-07-01] MEDS ORDERED: LABETALOL HCL IV 5 MG/ML 20ML IV PRN (01:26)
[2019-07-01] MEDS ORDERED: ACETAMINOPHEN 325 MG TAB PO PRN (01:26)
[2019-07-01] MEDS ORDERED: ONDANSETRON INJ 2 MG/ML 2 ML VIAL IV PRN (01:26)
[2019-07-01] MEDS ORDERED: POLYETHYLENE (MIRALAX) 17 GM PACK PO PRN (01:26)
[2019-07-01] MEDS ORDERED: FLUTICASONE PROPIONATE NA SPR 16 GM BTL PRN (01:26)
[2019-07-01] MEDS ORDERED: ALBUTEROL HFA 8 GM INHALER INH PRN (01:36)
[2019-07-01] MEDS ORDERED: CARBOHYDRATES FOR HYPOGLYCEMIA PO PRN ×2 (01:45→09:36)
[2019-07-01] MEDS ORDERED: GLUCAGON FOR INJ 1 MG VIAL IM PRN (01:45)
[2019-07-01] MEDS ORDERED: DEXTROSE 50% 50 ML SYRINGE IV PRN ×2 (01:45→09:36)
[2019-07-01] MEDS ORDERED: GLUCOSE 40% GEL 15 GM TUBE PO PRN ×2 (01:45→09:36)
[2019-07-01] MEDS ORDERED: GLUCOSE 10 TABS/TUBE PO PRN ×2 (01:45→09:36)
[2019-07-01 02:07] LABS: INR 2.4 (0.9-1.1); Prothrombin Time 24.5 Seconds (9.0-12.0)
--- NOTE | 2019-07-01 07:40 | History and Physical Report ---
DATE OF ADMISSION: 07/01/2019 CHIEF COMPLAINT: Hypertensive urgency and shortness of breath. HISTORY OF PRESENT ILLNESS: This is a 64-year-old male with past medical history significant for history of chronic systolic and diastolic CHF secondary to nonischemic cardiomyopathy, EF of 45-50%, status post ICD, chronic left bundle branch block, history of nonobstructive CAD, peripheral vascular disease, history of AFib on Coumadin, history of moderate aortic stenosis, hypertension, COPD, obstructive sleep apnea, uses oxygen while sleeping, diabetes, insulin requiring; chronic kidney disease stage IV, baseline creatinine around 2.6 to 3; chronic anemia, baseline hemoglobin 11-12; chronic thrombocytopenia, past tobacco abuse, currently chews tobacco; history of pulmonary hypertension, comes here because of shortness of breath and hypertensive urgency. The patient says he belongs to [employer] and associated with them for last 50 years. They are making dinner in the evening when suddenly he does not felt good and felt nauseous, felt like throwing up, and had an abdominal pain and shortness of breath. EMS who were close by was called in and when they checked his blood pressure, his systolic blood pressure was in high 200s, so he was brought into the hospital. He was given nitro which caused some headache, but that resolved now. In the ER, his blood pressure in 200s. He was given a dose of labetalol and dose of Lasix and he is feeling better now. He has some dry cough. Denies any fever, chills, no sore throat, no runny nose, no dizziness. Does felt blurred visions early in the morning, but his blood sugar was low in the 70s, after drinking apple juice, it has improved. He has some lower abdominal pain, thinks from the gallstones. No diarrhea or constipation, no bloody stools or black stools. Normal bladder movements. No hematuria, no burning micturition. He says he sleeps okay. Ambulates okay. Lives with his . Appetite is okay. Recently went to [place] for fistula but he was told his blood vessels were small. Also has plan for his aortic valve repair. ALLERGIES: No known drug allergies. PAST MEDICAL HISTORY: As mentioned above. PAST SURGICAL HISTORY: Had surgery for adrenal gland to control his BP, cardiac catheterization, mild nonobstructive CAD, colonoscopy, EGDs, spine lumbar cervical shot, status post pacemaker, skin cancer behind the left ear removed. MEDICATIONS: The patient is on Lantus 60 units p.o. daily, insulin sliding scale, Coumadin as directed, torsemide 1 tablet a day, 4 times a week and as needed, gabapentin 100 mg p.o. t.i.d., Isordil 20 mg p.o. t.i.d., Protonix 40 mg p.o. daily, hydralazine 25 mg p.o. q.i.d., lisinopril 5 mg p.o. daily, albuterol 2 puffs every 4 hours p.r.n., Toprol-XL 100 mg p.o. daily, Vitron -c 1 tablet b.i.d., Crestor 40 mg p.o. daily, Breo Ellipta 1 puff daily, Flonase 2 sprays in each nostril daily, DuoNebs 4 times a day, vitamin D 2000 units p.o. daily, aspirin 81 mg p.o. daily. FAMILY HISTORY: Significant for brother had lung cancer, was a smoker. Brother has diabetes. Mother had congestive heart failure. Sister has lung cancer, in her 40s, another sister diabetes. Son has hypertension, it started at the age of 18, requires hospitalization. SOCIAL HISTORY: . No smoking. Alcohol rare. No drug use. REVIEW OF SYMPTOMS: As per HPI. Rest of review of systems negative. PHYSICAL EXAMINATION: GENERAL: The patient is of moderate build, not in acute distress currently. VITAL SIGNS: Temperature 36.8, pulse 61, respiratory rate 23, blood pressure 165/86, oxygen 93% on 2 liters. HEENT: No pallor, no icterus. Pupils equal, round, reactive to light. NECK: No JVD, no neck mass, no carotid bruit. CARDIOVASCULAR: S1, S2 heard, regular rate and rhythm, no murmur, no gallop. RESPIRATORY SYSTEM: Normal AP diameter. No accessory muscle use. No wheezing, no crackles. ABDOMEN: Soft, bowel sounds present. Nontender. No distention. CENTRAL NERVOUS SYSTEM: Cranial nerves II-XII grossly intact. Nonfocal. EXTREMITIES: Trace pedal edema, no erythema seen. LABORATORY DATA: WBC 6, hemoglobin 10.5, hematocrit 33.1, platelets 129 and PTT 27.3, INR 2.7, APTT 37.2. Sodium 139, potassium 4, chloride 106, bicarbonate 30, BUN 45, creatinine 2.7, serum glucose 113, calcium 8.7, magnesium 1.8, total bilirubin 0.6, AST 32, ALT 31, alkaline phosphatase 71. Troponin I 0.052. Urinalysis +1 protein, otherwise negative. Chest x-ray: No acute process. CT of the head, no acute intracranial abnormality. EKG: AV dual paced rhythm with rate of 74. ASSESSMENT AND PLAN: This is a 64-year-old male who presents with abdominal pain, nausea and shortness of breath and found to have hypertensive urgency. 1. Hypertensive urgency. Blood pressure was in the high 200s when the EMS arrived and currently after Lasix and labetalol its better control. Continue his home medications of isosorbide dinitrate, hydralazine, lisinopril, Toprol-XL. We will place him on IV labetalol p.r.n., and closely monitor. If it is difficult to control, will consult cardiology. 2. History of atrial fibrillation, rate controlled on Toprol-XL and Coumadin. INR therapeutic. Will follow PT/INR. 3. Diabetes. Continue home Lantus plus insulin sliding scale. Monitor blood sugar. Follow HbA1c levels. 4. Obstructive sleep apnea. Use oxygen in the nighttime. 5. Chronic obstructive pulmonary disease, mild. Continue his home inhalers, currently stable. 6. Chronic systolic and diastolic congestive heart failure with EF of around 45%, was 30% in the past ef 30%, status post biventricular pacemaker and defibrillator implantation in 06/2017. Was given a dose of IV Lasix. Continue home dose of torsemide and lisinopril and Toprol-XL and monitor. 7. History of moderate aortic stenosis. Needs followup. 8. Gastroesophageal Reflux Disease. On PPI. 9. Hyperlipidemia, on statin. 10. History of chronic thrombocytopenia. Will follow the labs. 11. Anemia of chronic kidney disease. Hemoglobin at baseline. We will follow the labs. 12. History of chronic left bundle branch block, 13. history of pulmonary nodules. Needs followup. 14. Pulmonary hypertension. Needs followup. 15. History of peripheral artery disease, on aspirin and Crestor. 16. Chronic kidney disease stage IV. Baseline creatinine 2.6 to 3, present creatinine of 2.7. We will follow the labs. Dvt prophylaxis On Coumadin. Inr therapeutic. DISPOSITION. Closely monitor in the med/surg tele. Level 1 full code. MTDD
[2019-07-01 07:42] LABS: Basophils # (auto) 0.02 K/uL (0-0.2); Basophils % (auto) 0.3 %; Eosinophils # (auto) 0.11 K/uL (0-0.5); Eosinophils % (auto) 1.8 %; Hematocrit (blood only) 33.6 % (42-52); Hemoglobin 10.7 g/dL (14.0-18.0); Immature Granulocytes # (auto) 0.01 K/uL (0.00-0.02); Immature Granulocytes % (auto) 0.2 %; Lymphocytes # (auto) 1.02 K/uL (1.2-3.4); Lymphocytes % (auto) 16.9 %; Mean Corpuscular Hemoglobin 26.2 pg (25-34); Mean Corpuscular Hgb Conc 31.8 g/dL (32-36); Mean Corpuscular Volume 82.2 fL (80-100); Mean Platelet Volume 9.9 fL (7.4-10.4); Monocytes # (auto) 0.49 K/uL (0.11-0.59); Monocytes % (auto) 8.1 %; Neutrophils % (auto) 72.7 %; Platelet Count 121 K/uL (130-400); RDW Coefficient of Variation 16.4 % (11.5-14.5); RDW Standard Deviation 49.1 fL (36.4-46.3); Red Blood Count 4.09 M/uL (4.7-6.1); White Blood Count 6.05 K/uL (4.8-10.8)
[2019-07-01 08:21] LABS: BUN Creatinine Ratio 16.1 (10-20); Calcium 8.9 mg/dl (8.5-10.1); Creatinine Clr Calc Pharmacy 32.8 ml/min; Est GFR (African American) 26.4; Est GFR (Non-African American) 22.7; Magnesium 1.9 mg/dl (1.8-2.4); Potassium 3.7 mmol/L (3.5-5.1)
--- NOTE | 2019-07-01 08:38 | Ultrasound Report ---
US gallbladder CLINICAL HISTORY: 64 years-old Male presenting with abdominal pain, gall stones. TECHNIQUE: Real-time grayscale and limited color Doppler ultrasound imaging of the abdomen limited to the right upper quadrant was performed. COMPARISON: 08/02/2018. FINDINGS: Pancreas: Visualized portions of the pancreatic head and body normal. Liver: Normal echogenicity and echotexture. The liver measures 17.6 cm in maximal sagittal dimension. No sonographic evidence of hepatic mass. Main portal vein patent with normal directional flow. Biliary: No intrahepatic biliary ductal dilatation. Common bile duct measures up to 6-8 mm in diamete r. Gallbladder: Gallstones without evidence of gallbladder distention, wall thickening, or pericholecyst ic fluid or inflammatory change. Sonographic Baumann's sign negative. Right kidney: Cortical thinning may be present. No hydronephrosis. Ascites: None. Other: None. IMPRESSION: Cholelithiasis. No biliary ductal dilatation or evidence of cholecystitis. ACT 112: Negative or not required by law. Electronically signed by: Pino Hood M.D. 07/01/2019 8:36 AM
[2019-07-01] MEDS: ASPIRIN 81 MG ECTAB PO SCH (08:46)
[2019-07-01] MEDS: GABAPENTIN 100 MG CAP PO SCH ×3 (08:46→17:34)
[2019-07-01] MEDS: ISOSORBIDE DINITRATE 10 MG TAB PO SCH ×3 (08:47→17:34)
[2019-07-01] MEDS: CHOLECALCIFEROL 1,000 UNITS 25 MCG TAB PO SCH (08:47)
[2019-07-01] MEDS: METOPROLOL SUCC 50MG EXT REL TAB PO SCH (08:47)
[2019-07-01] MEDS: PANTOprazole 40 MG TAB PO SCH (08:48)
[2019-07-01] MEDS: lisinopriL 5 MG TAB PO SCH (08:48)
[2019-07-01 08:54] LABS: Estimated Average Glucose 235 mg/dl; Hemoglobin A1C 9.8 % (4.5-5.6)
[2019-07-01] MEDS ORDERED: INSULIN GLARGINE SOLOSTAR 100 UNITS/ML 3 ML PEN SQ SCH (09:00)
[2019-07-01] MEDS ORDERED: NON-FORMULARY MEDICATION (Iron,Carbonyl-Vitamin C [Vitron-C] 1 TAB) PO SCH (09:00)
[2019-07-01] MEDS ORDERED: GLUCAGON FOR INJ 1 MG VIAL SQ PRN (09:36)
--- NOTE | 2019-07-01 10:29 | Communication Note ---
Date of Service: July 01, 2019 Pt was seen and examined Lying in bed with no distress Pt said that he feels a little better He said that lately he becomes SOB with minimal exertion He said that he gained about 9lb in the last 3 days He said that currently he does not have any abdominal pain He said that yesterday he did not take some of his BP meds Denies any chest pain, palpitation, dizziness and SOB Exam General- No acute distress Head- atraumatic Eyes- PERRL, EOMI, ENT- oropharynx clear Neck- supple, no JVD Lungs- clear to auscultation Heart- regular rhythm; +murmur Abdomen- normal bowel sounds, soft, nontender Extremities- no calf tenderness Neuro- alert, oriented x 3; PERRL, EOMI; no facial palsy; no dysarthria Skin- warm & dry A/P Present on admission with abdominal pain associated with SOB with BP 204/105 on admission Hypertensive urgency. BP on admission 204/105 on admission Missed his BP meds yesterday Received IV labetalol and lasix on admission BP improved Continue his home medications of isosorbide dinitrate, hydralazine, lisinopril, Toprol-XL. BP stable SOB Pt said that he gained about 9 lbs in the last 3 days CXR showed no acute process Received Lasix IV 60mg in the ER Will get an ECHO Consider nephrology consult to assist with fluid management in the setting of CKD Elevated Troponin Possible related to demand ischemia from hypertensive urgency Troponin on admission 0.052 then slightly increased to 0.072 Denies any chest pain ECHO pending Continue aspirin, Toprol , Statin and coumadin Abdominal pain Etiology unknown Gallbladder u/s showed cholelithiasis. No biliary ductal dilatation or evidence of cholecystitis. Tolerated diet today Currnetly denies any pain Afib Rate controlled on NSR Continue toprol and isosorbide dinitrate On coumadin with INR theurapeutic Diabetes. Recent Hba1c 9.8 on 07/01/19 Continue Lantus 40 units On insulin sliding scale. Monitor BP . Obstructive sleep apnea. Use oxygen in the nighttime. Chronic obstructive pulmonary disease Continue his home inhalers, currently stable. Chronic systolic and diastolic congestive heart failure Last ECHO with EF 45- 49 %on 04/07 S/P biventricular pacemaker and defibrillator implantation in 06/2017. received Lasix in the ER Continue home dose of torsemide and lisinopril and Toprol-XL and monitor. Chronic kidney disease stage IV. Baseline creatinine 2.6 to 3, present creatinine of 2.7. Continue monitor BMP DVT px on Coumadin Code status Full code
[2019-07-01] MEDS: INSULIN ASPART 100 UNITS/ML 3 ML PEN SC SCH ×3 (12:22→21:04)
[2019-07-01] MEDS: WARFARIN SOD 5 MG TAB PO SCH (16:08)
--- NOTE | 2019-07-01 16:21 | Electrocardiogram Report ---
Test Reason : Blood Pressure : / mmHG Vent. Rate : 074 BPM Atrial Rate : 074 BPM P-R Int : 136 ms QRS Dur : 198 ms QT Int : 496 ms P-R-T Axes : 000 175 -16 degrees QTc Int : 550 ms AV dual-paced rhythm Bi-ventricular pacer Abnormal ECG When compared with ECG of 05-JUN-2019 00:53, Vent. rate has increased BY 3 BPM Confirmed by Leopoldo Oseguera ([id number]) on 07/01/2019 4:20:44 PM Referred By: REFERRED SELF Confirmed By:Leopoldo Oseguera
--- NOTE | 2019-07-01 16:31 | Nephrology Consultation ---
Date of Consultation July 01, 2019 Assessment & Plan (1) CHF (congestive heart failure): Patient reports increased SOB and weight gain of 11lbs in 4 days SNELLER HAND. I suspect increased salt intake tipped him over. CXR did not show any acute process. He has improved after iv lasix. He has Aortic stenosis and pre load dependent. -Recommend increasing torsemide to 10mg daily and monitor daily weight. -Monitor input/output (2) CKD (chronic kidney disease) stage 4, GFR 15-29 ml/min: Patient with proteinuric CKD 4 baseline cr of 2-3. Cr is 2.79 which is close to baseline. electrolytes are stable. No indication for HD although he is close to needing HD. -Monitor RF with daily BMP -avoid nephrotoxins (3) Hypertensive urgency: Patient with labile HTN s/p adrenalectomy in the past. BP is acceptable now. Goal SBP less than 140. Continue current regimen History of Present Illness Reason for Consultation: CKD 4, volume management Requesting Physician: Barbara Suarez MD Attending Physician: Barbara Suarez MD History of Present Illness This is a 64yoM with proteinuric CKD 4, who was admitted on 06/29 with SOB being seen for volume management. 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 BP was also high but has improved. He was given iv lasix upto 60mg yesterday. urine output has not been documented well. He is still SOB with minimal exertion. he reports gaining 11lbs in 4 days. he took extra torsemide before coming to the hospital. he claims to be taking lasix but prescription is torsemide. he has been eating hamburgers. Allergies Allergy/AdvReac Type Severity Reaction Status Date / Time No Known Allergies Allergy Verified 06/30/19 20:54 Home Medications Home Medications Medication Instructions Recorded Confirmed Type Lantus Solostar U-100 Insulin 60 units SUBCUT DAILY 02/05/18 06/30/19 History aspirin 81 mg PO DAILY 02/05/18 06/30/19 History cholecalciferol (vitamin D3) 2,000 unit PO DAILY 02/05/18 06/30/19 History [Vitamin D3] isosorbide dinitrate 20 mg PO TIDM 02/05/18 06/30/19 History metoprolol succinate [Toprol XL] 100 mg PO DAILY 02/05/18 06/30/19 History pantoprazole [Protonix] 40 mg PO DAILY 02/05/18 06/30/19 History rosuvastatin [Crestor] 40 mg PO HS 02/05/18 06/30/19 History gabapentin 100 mg PO TIDM 05/14/18 06/30/19 History hydralazine 25 mg PO QID 05/20/18 06/30/19 History albuterol sulfate [ProAir HFA] 2 puff INHALATION Q4H PRN 08/01/18 06/30/19 History fluticasone propionate [Flonase 2 spray INTRANASAL DAILY PRN 08/01/18 06/30/19 History Allergy Relief] ipratropium-albuterol 3 ml INHALATION QID PRN 08/01/18 06/30/19 History warfarin See Rx Instructions .ROUTE .COMPLEX 10/03/18 06/30/19 History torsemide 10 mg PO SUTUTHSA 12/24/18 06/30/19 History torsemide See Rx Instructions .ROUTE 12/25/18 06/30/19 History .COMPLEX PRN Vitron-C 1 tab PO BID 06/05/19 06/30/19 History insulin lispro [Humalog KwikPen See Rx Instructions .ROUTE .COMPLEX 06/05/19 06/30/19 History Insulin] lisinopril 5 mg PO DAILY 06/05/19 06/30/19 History Patient History Social History Preferred Language: Latvian Communication Ability: Effective Visual Impairment: Limited Nurse Specialist Required: No Beliefs That Will Affect Care: None marital status: Current Living Situation: Spouse current occupational status: retired 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 Other Information That Helps Us Care for You: No Feels Safe at Home: Yes Safety Concerns: Feels Safe At This Time Smoking Status: Never smoker Tobacco Type: smokeless tobacco ; Do You Dip or Chew Tobacco: Yes ; Second Hand Exposure: Yes ; Tobacco Cessation Education Requested by Patient: No Hx Alcohol Use: No Hx Substance Use: No Review of Systems Review of Systems: All systems reviewed & are unremarkable except as noted in HPI & below Physical Exam Physical Exam: General exam: Appears comfortable, no acute distress HEENT: Pupils are equal and reactive to light Neck: No JVD, neck is supple trachea is midline Respiratory system: Clear breath sounds bilaterally. Gastrointestinal: Abdomen is soft, non distended, non tender, bowel sounds are present CVS: Regular rate and rhythm. No murmurs, rubs or gallops Musculoskeletal: No joint or muscle tenderness Extremities: Non tender, trace edema, peripheral pulses are present Neuro: Oriented, no tremors, no focal neurological deficits Skin: No rashes Results & Data Vital Signs (Past 12 Hours) Vital Signs Temp Pulse Pulse Resp BP Pulse Ox 07/01/19 16:03 36.8 C 61 69 18 146/79 H 95 07/01/19 11:33 61 07/01/19 10:51 36.6 C 75 20 144/77 H 92 07/01/19 07:08 36.7 C 59 L 19 151/72 H 93 Laboratory Results 06/30/19 06/30/19 07/01/19 20:34 20:34 07:04 WBC 6.01 6.05 RBC 4.03 L 4.09 L MCV 82.1 82.2 MCH 26.1 26.2 MCHC 31.7 L 31.8 L RDW Std Deviation 49.2 H 49.1 H RDW Coeff of Joey 16.2 H 16.4 H Plt Count 129 L 121 L MPV 10.1 9.9 Albumin 3.2 L (1) CHF (congestive heart failure) Heart failure chronicity: unspecified Heart failure type: unspecified Qualified Code(s): I50.9 - Heart failure, unspecified
[2019-07-01 17:41] LABS: Beta-Hydroxybutyrate 0.81 mg/dl (0.2-2.81)
[2019-07-01] MEDS ORDERED: PHARMACY GLYCEMIC MGMT CONSULT PRN (18:08)
[2019-07-01] MEDS ORDERED: INSULIN ASPART 100 UNITS/ML 3 ML PEN SC ONE (18:30)
[2019-07-01] MEDS: ROSUVASTATIN CALCIUM 20 MG TAB PO SCH (21:04)
--- NOTE | 2019-07-01 21:09 | Pharmacy Report ---
Pharmacy Glycemic Short Note 2 - Date of Service July 01, 2019 - Glycemic Short BSG Results (Last 24 hours): 07/01/19 07/01/19 07/01/19 01:57 07:04 11:13 Glucose 163 H POC Glucose 105 H 275 H 07/01/19 07/01/19 07/01/19 16:23 16:24 16:33 Glucose 316 H* POC Glucose 322 H* 399 H* OUTPATIENT ANTIDIABETIC REGIMEN: * Lantus 60 units SQ QD * Humalog - 7 units SQ with breakfast; 15 units SQ with lunch + dinner * 7 units SQ as need for high CHO bedtime snack ASSESSMENT: * Received call from RN around 1700 that patient was having BSGs in the upper 300s, upon discussion with Hospitalist regarding glycemic parameters, Pharmacy was consulted for glycemic management. * Mr. Delarosa is well know to the glycemic service - adjustments to his current inpatient regimen were based on data from previous admissions. PLAN FOR INPATIENT GLYCEMIC CONTROL: * Basal insulin * Lantus 40 units SQ QAM. (previous admissions show AM hyperglycemia, this dose has worked well for him in the past while admitted) * Bolus insulin * NovoLog per scale ACHS or Q6hrs while NPO * Goal Range: Low 110 mg/dL - High 140 mg/dL (changed from 140 - 180) * Tighten Correction Factor to 20 mg/dL/unit (from 35 mg/dL) * Tighten Nutritional / Prandial insulin per carb ratio of 1 unit per 7 grams CHO consumed (from 12) * One time dose of 7 units SQ of Novolog given in addition to 7 units given with dinner just prior to consult. (Total 14 units) PLAN FOR DISCHARGE: * To be evaluated once insulin needs have been assessed.
[2019-07-02] MEDS ORDERED: INSULIN ASPART 100 UNITS/ML 3 ML PEN SC ONE (04:00)
[2019-07-02 07:17] LABS: INR 1.9 (0.9-1.1); Prothrombin Time 19.4 Seconds (9.0-12.0)
[2019-07-02] MEDS: GABAPENTIN 100 MG CAP PO SCH ×3 (08:53→17:11)
[2019-07-02] MEDS: ISOSORBIDE DINITRATE 10 MG TAB PO SCH ×3 (08:53→17:12)
[2019-07-02] MEDS: ASPIRIN 81 MG ECTAB PO SCH (08:54)
[2019-07-02] MEDS: PANTOprazole 40 MG TAB PO SCH (08:54)
[2019-07-02] MEDS: CHOLECALCIFEROL 1,000 UNITS 25 MCG TAB PO SCH (08:55)
[2019-07-02] MEDS: lisinopriL 5 MG TAB PO SCH (08:55)
[2019-07-02] MEDS: METOPROLOL SUCC 50MG EXT REL TAB PO SCH (08:55)
[2019-07-02] MEDS: INSULIN GLARGINE SOLOSTAR 100 UNITS/ML 3 ML PEN SQ SCH (08:56)
[2019-07-02] MEDS: INSULIN ASPART 100 UNITS/ML 3 ML PEN SC SCH ×4 (08:58→20:16)
[2019-07-02] MEDS ORDERED: TORSEMIDE 10 MG TAB PO SCH ×2 (09:00)
[2019-07-02 09:44] LABS: Est GFR (African American) 26.9; Est GFR (Non-African American) 23.2; Potassium 4.2 mmol/L (3.5-5.1)
[2019-07-02 09:45] LABS: BUN Creatinine Ratio 16.8 (10-20); Calcium 8.7 mg/dl (8.5-10.1); Creatinine Clr Calc Pharmacy 33.2 ml/min
--- NOTE | 2019-07-02 10:07 | Pharmacy Report ---
Pharmacy Glycemic Short Note 2 - Date of Service July 02, 2019 - Glycemic Short BSG Results (Last 24 hours): 07/01/19 07/01/19 07/01/19 11:13 16:23 16:24 Glucose POC Glucose 275 H 322 H* 399 H* 07/01/19 07/01/19 07/02/19 16:33 21:01 04:09 Glucose 316 H* POC Glucose 199 H 113 H 07/02/19 07/02/19 06:36 07:14 Glucose 137 H POC Glucose 134 H OUTPATIENT ANTIDIABETIC REGIMEN: * Lantus 60 units SQ QD * Humalog - 7 units SQ with breakfast; 15 units SQ with lunch + dinner * 7 units SQ as need for high CHO bedtime snack ASSESSMENT: 07/01 * Patient received total of 65 units of insulin yesterday, of which 40 were basal insulin * Fasting BSG w/in range at 134 mg/dL - continue same basal dose * Patient known to glycemic service from previous admissions, will utilize CF/CR similar to other admissions * Lunch time BSG trending up - however only drawn 2 hours after insulin administered therefore likely falsely elevated / continue same CF/CR for now 06/30 * Received call from RN around 1700 that patient was having BSGs in the upper 300s, upon discussion with Hospitalist regarding glycemic parameters, Pharmacy was consulted for glycemic management. * Mr. Delarosa is well know to the glycemic service - adjustments to his current inpatient regimen were based on data from previous admissions. PLAN FOR INPATIENT GLYCEMIC CONTROL: * Basal insulin * Lantus 40 units SQ QAM * Bolus insulin - tighten * NovoLog per scale ACHS or Q6hrs while NPO * Goal Range: Low 110 mg/dL - High 140 mg/dL * Correction Factor to 15mg/dL/unit * Nutritional / Prandial insulin per carb ratio of 1 unit per 5 grams CHO consumed PLAN FOR DISCHARGE: * To be evaluated once insulin needs have been assessed.
--- NOTE | 2019-07-02 10:17 | Hospitalist Progress Note ---
Date of Service July 02, 2019 Assessment & Plan (1) Hypertensive urgency: Present on admission with abdominal pain associated with SOB with BP 204/105 on admission Hypertensive urgency. BP on admission 204/105 on admission Missed his BP meds prior to admission Received IV labetalol and lasix on admission BP improved Continue his home medications of isosorbide dinitrate, hydralazine, lisinopril, Toprol-XL. BP stable SOB Seems to be chronic Possible related to fluid overload Pt said that he gained about 9-11 lbs lbs in the last 3-4 days CXR showed no acute process Received Lasix IV 60mg in the ER Echo showed moderate concentric left ventricular hypertrophy. Borderline global hypokinesis of the left ventricle. Left ventricular ejection faction 50% Nephrology on board recommended Torsemide 10mg daily and monitor I/O Elevated Troponin Possible related to demand ischemia from hypertensive urgency Troponin on admission 0.052 then slightly increased to 0.072, now trending down to 0.05 Denies any chest pain ECHO showed moderate concentric left ventricular hypertrophy. Borderline global hypokinesis of the left ventricle. Left ventricular ejection faction 50% Continue aspirin, Toprol , Statin and coumadin Abdominal pain Etiology unknown Gallbladder u/s showed cholelithiasis. No biliary ductal dilatation or evidence of cholecystitis. Tolerated diet today Currently denies any pain Afib Rate controlled Continue toprol and isosorbide dinitrate On coumadin with INR 1.9 today Diabetes. Recent Hba1c 9.8 on 07/01/19 Continue Lantus 40 units On insulin sliding scale. Pharmacy on board for glycemic management Monitor BP . Obstructive sleep apnea. Use oxygen in the nighttime. Chronic obstructive pulmonary disease Continue his home inhalers, currently stable. Chronic systolic and diastolic congestive heart failure Echo showed moderate concentric left ventricular hypertrophy. Borderline global hypokinesis of the left ventricle. Left ventricular ejection faction 50% S/P biventricular pacemaker and defibrillator implantation in 06/2017. received Lasix in the ER Torsemide increased to 10mg daily Continue home dose lisinopril and Toprol-XL and monitor. Monitor BMP while on torsemide daily Chronic kidney disease stage IV. Baseline creatinine 2.6 to 3, present creatinine of 2.7. Continue monitor BMP DVT px on Coumadin Code status Full code Admission and Anticipated Discharge Date Admission Date: July 01, 2019 Subjective Pt was seen and examined Sitting in chair with no distress Pt said that his breathing slightly improves He said that when he walked on the hallway, he does have SOB He said that his breathing has been like that for years Denies any chest pain, palpitation, dizziness and fever Physical Exam Physical Exam: General- No acute distress Head- atraumatic Eyes- PERRL, EOMI, ENT- oropharynx clear Neck- supple, no JVD Lungs- clear to auscultation Heart- + murmur Abdomen- normal bowel sounds, soft, nontender Extremities- no calf tenderness Neuro- alert, oriented x 3; PERRL, EOMI; no facial palsy; no dysarthria Skin- warm & dry Results & Data ([facility]) Vital Signs (Past 12 Hours) Vital Signs Temp Pulse Pulse Pulse Resp BP Pulse Ox 07/02/19 07:43 36.8 C 64 18 135/72 98 07/02/19 04:09 36.9 C 60 18 122/65 99 07/02/19 00:38 66 07/01/19 23:19 36.8 C 61 100 H 126/71 100
[2019-07-02] MEDS: WARFARIN SOD 5 MG TAB PO SCH (15:12)
--- NOTE | 2019-07-02 19:19 | Nephrology Progress Note ---
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 CXR did not show any acute process. He has improved after iv lasix. He has Aortic stenosis and pre load dependent. Initial standing weight was 117 kg, down to 115.8 kg today. -Prior to admission he was taking torsemide 10 mg every Thursday, Thursday, , Thursday: He is exquisitely sensitive to changes in preload and has not in the past tolerated daily torsemide -Lower torsemide to 10 mg Thursday, Thursday, Thursday, , Thursday -<2 gm daily Na diet ; for now no FR though may well need one -Continue to monitor daily weight. -Monitor input/output (2) CKD (chronic kidney disease) stage 4, GFR 15-29 ml/min: Patient with proteinuric CKD 4 baseline cr of 2-3. Cr is 2.7 which is close to baseline. electrolytes are susceptible. No indication for HD although he is close to needing HD. -Monitor RF with daily BMP -avoid nephrotoxins (3) Hypertensive urgency: Patient with labile HTN s/p adrenalectomy in the past. BP is acceptable now. Goal SBP less than 140. Continue current regimen Admission and Anticipated Discharge Date Admission Date: July 01, 2019 Subjective Seen on rounds this afternoon at approximately 1530. Some lightheadedness today with ambulation intermittent mild exertional dyspnea. Otherwise eating and drinking well. Remains on room air. No edema. Review of Systems Review of Systems: All systems reviewed & are unremarkable except as noted in HPI & below Physical Exam Constitutional: well developed and well nourished; no acute distress Sitting up in chair on room air Eyes: EOM intact bilaterally ENMT: Ears: no external ear abnormality Nose: no external nose abnormality Mouth: + dry oral mucous membranes Neck: no nuchal rigidity Respiratory: normal respiratory effort Auscultation: lungs clear to auscultation bilaterally and + diminished lung sounds Cardiovascular: Rate/Rhythm: regular rate and regular rhythm Heart Sounds: + murmur Extremities: no edema Gastrointestinal (Abdomen): Inspection/Auscultation: normal bowel sounds Percussion/Palpation: abdomen soft; abdomen nontender Musculoskeletal: Extremities: strength 5/5 throughout Skin: no rashes, warm and dry Neurologic: mathew, fluent speech, no tremor Psychiatric: A+Ox3, euthymic affect Genitourinary: No Reyes Results & Data ([facility]) Vital Signs (Past 12 Hours) Vital Signs Temp Pulse Pulse Resp BP Pulse Ox 07/02/19 19:11 36.7 C 61 18 121/74 93 07/02/19 15:15 36.5 C 87 18 111/70 94 07/02/19 12:18 64 07/02/19 11:57 36.8 C 53 L 17 118/57 L 94 07/02/19 07:43 36.8 C 64 18 135/72 98 Laboratory Results 07/01/19 07:04 07/02/19 06:36 (1) CHF (congestive heart failure) Heart failure chronicity: unspecified Heart failure type: unspecified Qualified Code(s): I50.9 - Heart failure, unspecified
[2019-07-02] MEDS: ROSUVASTATIN CALCIUM 20 MG TAB PO SCH (20:09)
[2019-07-03] MEDS ORDERED: INSULIN ASPART 100 UNITS/ML 3 ML PEN SC SCH
[2019-07-03] MEDS: INSULIN ASPART 100 UNITS/ML 3 ML PEN SC SCH ×6 (00:09→20:44)
[2019-07-03 06:51] LABS: INR 1.7 (0.9-1.1); Prothrombin Time 17.2 Seconds (9.0-12.0)
[2019-07-03] MEDS: lisinopriL 5 MG TAB PO SCH (08:33)
[2019-07-03] MEDS: CHOLECALCIFEROL 1,000 UNITS 25 MCG TAB PO SCH (08:33)
[2019-07-03] MEDS: METOPROLOL SUCC 50MG EXT REL TAB PO SCH (08:33)
[2019-07-03] MEDS: ASPIRIN 81 MG ECTAB PO SCH (08:34)
[2019-07-03] MEDS: PANTOprazole 40 MG TAB PO SCH (08:34)
[2019-07-03] MEDS: ISOSORBIDE DINITRATE 10 MG TAB PO SCH ×3 (08:34→17:16)
[2019-07-03] MEDS: INSULIN GLARGINE SOLOSTAR 100 UNITS/ML 3 ML PEN SQ SCH (08:35)
[2019-07-03 08:57] LABS: BUN Creatinine Ratio 17.4 (10-20); Creatinine Clr Calc Pharmacy 33.6 ml/min; Est GFR (African American) 27.4; Est GFR (Non-African American) 23.7; Potassium 4.1 mmol/L (3.5-5.1)
[2019-07-03] MEDS ORDERED: TORSEMIDE 10 MG TAB PO SCH (09:00)
[2019-07-03] MEDS: GABAPENTIN 100 MG CAP PO SCH ×3 (09:00→17:17)
[2019-07-03] MEDS: HEPARIN SOD 5,000 UNIT/0.5 ML VIAL SQ SCH ×2 (13:50→20:02)
--- NOTE | 2019-07-03 13:53 | Nephrology Progress Note ---
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 CXR did not show any acute process. He has improved after iv lasix. He has Aortic stenosis and pre load dependent. Initial standing weight was 117 kg, down to 115.8 kg > 115 today. -Prior to admission he was taking torsemide 10 mg every Thursday, Thursday, , Thursday: He is exquisitely sensitive to changes in preload and has not in the past tolerated daily torsemide -continue 5 days weekly torsemide to 10 mg Thursday, Thursday, Thursday, , Thursday with extra 10 mg dose as needed shortness of breath or more than 3 pound weight gain in 24 hours or more than 5 pound weight gain in 48 hours -<2 gm daily Na diet ; for now no FR though may well need one -Continue to monitor daily weight. -Monitor input/output -We will sign off. Please call with questions. Care coordinated with Dr. Suarez Discharge recommendations (d/c summary updated): Basic metabolic panel to be ordered by nephrology every 2 weeks starting July 10 x 3 checks -lower hydralazine dose from 25 mg 4 times daily to 25 mg 3 times daily -continue 5 days weekly torsemide to 10 mg Thursday, Thursday, Thursday, , Thursday with extra 10 mg dose as needed shortness of breath or more than 3 pound weight gain in 24 hours or more than 5 pound weight gain in 48 hours -continue daily weight and less than 2 gram daily sodium intake diet -no change to metoprolol and lisinopril dosing -follow up with physician's assistant store manager trainee or Dr Bosch in [place] or may have to go to [place] depending on availability in about a month (2) CKD (chronic kidney disease) stage 4, GFR 15-29 ml/min: Patient with proteinuric CKD 4 baseline cr of 2-3. Cr is 2.7 again today which is close to baseline. electrolytes are susceptible. No indication for HD although he is close to needing HD--has seen vascular surgery at [place] as an outpatient and will need an AV graft when time comes for dialysis. -Monitor RF with daily BMP -avoid nephrotoxins (3) Hypertensive urgency: Patient with labile HTN s/p adrenalectomy in the past. BP is acceptable now. Goal SBP less than 140. Continue current regimen Admission and Anticipated Discharge Date Admission Date: July 01, 2019 Subjective Seen on rounds at approximately 12:30 PM. Some lower abdominal cramping and discomfort today. Ongoing mild presyncopal symptoms and calf claudication with ambulation. Exertional dyspnea acceptable. No cough. No issues passing urine. No edema Review of Systems Review of Systems: All systems reviewed & are unremarkable except as noted in HPI & below Physical Exam Constitutional: well developed and well nourished; no acute distress Sitting up in chair in darkened room per prior routines on room air Eyes: EOM intact bilaterally ENMT: Ears: no external ear abnormality Nose: no external nose abnormality Mouth: + dry oral mucous membranes Neck: no nuchal rigidity Respiratory: normal respiratory effort Auscultation: lungs clear to auscultation bilaterally and + diminished lung sounds Cardiovascular: Rate/Rhythm: regular rate and regular rhythm Heart Sounds: + murmur Extremities: no edema Gastrointestinal (Abdomen): Inspection/Auscultation: normal bowel sounds Percussion/Palpation: abdomen soft; abdomen nontender Musculoskeletal: Extremities: strength 5/5 throughout Skin: no rashes, warm and dry Neurologic: Moves all extremities, fluent speech, no tremor Psychiatric: A+Ox3, euthymic affect Results & Data ([facility]) Vital Signs (Past 12 Hours) Vital Signs Temp Pulse Resp BP Pulse Ox 07/03/19 11:42 36.7 C 75 18 152/82 H 98 07/03/19 07:54 36.5 C 61 18 168/86 H 97 07/03/19 04:20 36.6 C 65 18 124/69 98 Laboratory Results 07/01/19 07:04 07/03/19 06:11 (1) CHF (congestive heart failure) Heart failure chronicity: unspecified Heart failure type: unspecified Qualified Code(s): I50.9 - Heart failure, unspecified
--- NOTE | 2019-07-03 14:05 | Pharmacy Report ---
Pharmacy Glycemic Short Note 2 - Date of Service July 03, 2019 - Glycemic Short BSG Results (Last 24 hours): 07/02/19 07/02/19 07/02/19 16:07 16:19 20:05 Glucose POC Glucose 334 H* 291 H 365 H* 07/03/19 07/03/19 07/03/19 00:01 04:12 06:11 Glucose 138 H POC Glucose 171 H 119 H 07/03/19 07/03/19 07:09 11:01 Glucose POC Glucose 129 H 194 H OUTPATIENT ANTIDIABETIC REGIMEN: * Lantus 60 units SQ QD * Humalog - 7 units SQ with breakfast; 15 units SQ with lunch + dinner * 7 units SQ as need for high CHO bedtime snack ASSESSMENT: 07/02 * Patient received total of 99 units of insulin yesterday, of which 40 were basal insulin * Fasting BSG 129 mg/dL - will continue same basal insulin * BSGs trending up yesterday, therefore CR had been tightened * BSGs elevated at lunch today at 197 mg/dL - will follow but continue same CF/CR for now. May need to adjust further tomorrow PLAN FOR INPATIENT GLYCEMIC CONTROL: * Basal insulin - continue same * Lantus 40 units SQ QAM * Bolus insulin - tighten * NovoLog per scale ACHS or Q6hrs while NPO * Goal Range: Low 110 mg/dL - High 140 mg/dL * Correction Factor to 15mg/dL/unit * Nutritional / Prandial insulin per carb ratio of 1 unit per 4 grams CHO consumed PLAN FOR DISCHARGE: * To be evaluated once insulin needs have been assessed. * A1c 9.8% - therefore patient will likely need outpatient follow up with ice guard inspector or PCP
[2019-07-03] MEDS ORDERED: LABETALOL HCL IV 5 MG/ML 20ML IV STA (17:01)
--- NOTE | 2019-07-03 17:13 | Hospitalist Progress Note ---
Date of Service July 03, 2019 Assessment & Plan (1) Hypertensive urgency: Present on admission with abdominal pain associated with SOB with BP 204/105 on admission Hypertensive urgency. BP on admission 204/105 on admission Missed his BP meds prior to admission Received IV labetalol and lasix on admission BP improved Continue his home medications of isosorbide dinitrate, hydralazine, lisinopril, Toprol-XL. BP stable SOB Seems to be chronic Possible related to fluid overload Pt said that he gained about 9-11 lbs lbs in the last 3-4 days CXR showed no acute process Received Lasix IV 60mg in the ER Echo showed moderate concentric left ventricular hypertrophy. Borderline global hypokinesis of the left ventricle. Left ventricular ejection faction 50% Nephrology on board recommended Torsemide 10mg daily x5 weekly Continue monitor I/O Clinically improved Elevated Troponin Possible related to demand ischemia from hypertensive urgency Troponin on admission 0.052 then slightly increased to 0.072, now trending down to 0.05 Denies any chest pain ECHO showed moderate concentric left ventricular hypertrophy. Borderline global hypokinesis of the left ventricle. Left ventricular ejection faction 50% Continue aspirin, Toprol , Statin and coumadin Abdominal pain Etiology unknown Gallbladder u/s showed cholelithiasis. No biliary ductal dilatation or evidence of cholecystitis. Tolerated diet today Currently denies any pain Afib Rate controlled Continue toprol and isosorbide dinitrate On coumadin with INR 1.7 today Diabetes. Recent Hba1c 9.8 on 07/01/19 Continue Lantus 40 units On insulin sliding scale. Pharmacy on board for glycemic management Monitor BP . Obstructive sleep apnea. Use oxygen in the nighttime. Chronic obstructive pulmonary disease Continue his home inhalers, Currently stable. Chronic systolic and diastolic congestive heart failure Echo showed moderate concentric left ventricular hypertrophy. Borderline global hypokinesis of the left ventricle. Left ventricular ejection faction 50% S/P biventricular pacemaker and defibrillator implantation in 06/2017. received Lasix in the ER Torsemide increased to 10mg daily Continue home dose lisinopril and Toprol-XL and monitor. Monitor BMP while on torsemide daily Chronic kidney disease stage IV. Baseline creatinine 2.6 to 3, present creatinine of 2.7. Continue monitor BMP DVT px on Coumadin Code status Full code Admission and Anticipated Discharge Date Admission Date: July 01, 2019 Subjective Pt was seen and examined Sitting in chair with no distress Pt said that he feels much better He has been walking in the hallway He said that he is breathing his much better Denies any chest pain, palpitation, dizziness and SOB Physical Exam Physical Exam: General- No acute distress Head- atraumatic Eyes- PERRL, EOMI, ENT- oropharynx clear Neck- supple, no JVD Lungs- clear to auscultation Heart- + murmur Abdomen- normal bowel sounds, soft, nontender Extremities- no calf tenderness Neuro- alert, oriented x 3; PERRL, EOMI; no facial palsy; no dysarthria Skin- warm & dry Results & Data ([facility]) Vital Signs (Past 12 Hours) Vital Signs Temp Pulse Resp BP Pulse Ox 07/03/19 15:34 36.7 C 64 16 150/84 H 96 07/03/19 11:42 36.7 C 75 18 152/82 H 98 07/03/19 07:54 36.5 C 61 18 168/86 H 97
[2019-07-03] MEDS: WARFARIN SOD 5 MG TAB PO SCH (17:15)
[2019-07-03] MEDS: ROSUVASTATIN CALCIUM 20 MG TAB PO SCH (20:02)
[2019-07-04] MEDS ORDERED: INSULIN ASPART 100 UNITS/ML 3 ML PEN SC SCH
[2019-07-04] MEDS: HEPARIN SOD 5,000 UNIT/0.5 ML VIAL SQ SCH ×2 (04:32→14:29)
[2019-07-04 06:47] LABS: INR 1.6 (0.9-1.1); Prothrombin Time 16.7 Seconds (9.0-12.0)
--- NOTE | 2019-07-04 07:46 | Pharmacy Report ---
Pharmacy Glycemic Short Note 2 - Date of Service July 04, 2019 - Glycemic Short BSG Results (Last 24 hours): 07/03/19 07/03/19 07/03/19 06:11 11:01 16:13 Glucose 138 H POC Glucose 194 H 74 07/03/19 07/04/19 07/04/19 20:27 00:08 07:19 Glucose POC Glucose 81 128 H 100 H OUTPATIENT ANTIDIABETIC REGIMEN: * Lantus 60 units SQ QD * Humalog - 7 units SQ with breakfast; 15 units SQ with lunch + dinner * 7 units SQ as need for high CHO bedtime snack ASSESSMENT: 07/03 * Patient is currently receiving an average of 87 units of insulin per day * 40 units of basal insulin * 47 units of prandial/correctional insulin * BSGs ranging 74-194 over the past 24hrs * Risk factors for insulin resistance are constant over the past 24hrs * Anticipating insulin regimen will need decreased for the next 24hrs d/t : * AM Fasting BSG = 100 therefore Basal insulin needs decreased -> will do so by 20% * BSGs trending downwards throughout the day (insulin stacking) therefore Loosen CR 07/02 * Patient received total of 99 units of insulin yesterday, of which 40 were basal insulin * Fasting BSG 129 mg/dL - will continue same basal insulin * BSGs trending up yesterday, therefore CR had been tightened * BSGs elevated at lunch today at 197 mg/dL - will follow but continue same CF/CR for now. May need to adjust further tomorrow PLAN FOR INPATIENT GLYCEMIC CONTROL: * Basal insulin - decrease by 20% * Lantus 32 units SQ QAM * Bolus insulin - loosen CR - may eventually need to tighten with breakfast only * NovoLog per scale ACHS or Q6hrs while NPO * Goal Range: Low 110 mg/dL - High 140 mg/dL * Correction Factor to 15 mg/dL/unit * Nutritional / Prandial insulin per carb ratio of 1 unit per 5 grams CHO consumed PLAN FOR DISCHARGE: * A1c 9.8% on 07/01/19 * Patient's A1c fluctuates between 8-11% * Goal A1c < 7% based on age/comorbidities * Based on previous CDE notes, patient is not always compliant with diet and d oes not always record BSGs * He may benefit from the addition of a sliding scale. If planning to start on discharge, see recommendation below: * BSG 151 - 170, give 1 unit * BSG 171 - 190, give 2 units * BSG 191 - 210, give 3 units * BSG 211 - 230, give 4 units * BSG 231 - 250, give 5 units * BSG 251 - 270, give 6 units * BSG 271 - 290, give 7 units * BSG 291 - 310, give 8 units * BSG 311 - 330, give 9 units * BSG 331 - 350, give 10 units and call physician
[2019-07-04] MEDS: INSULIN ASPART 100 UNITS/ML 3 ML PEN SC SCH ×3 (08:23→17:15)
[2019-07-04] MEDS: PANTOprazole 40 MG TAB PO SCH (08:24)
[2019-07-04] MEDS: CHOLECALCIFEROL 1,000 UNITS 25 MCG TAB PO SCH (08:24)
[2019-07-04] MEDS: METOPROLOL SUCC 50MG EXT REL TAB PO SCH (08:24)
[2019-07-04] MEDS: ISOSORBIDE DINITRATE 10 MG TAB PO SCH ×3 (08:24→17:14)
[2019-07-04] MEDS: lisinopriL 5 MG TAB PO SCH (08:25)
[2019-07-04] MEDS: GABAPENTIN 100 MG CAP PO SCH ×3 (08:25→17:14)
[2019-07-04] MEDS: ASPIRIN 81 MG ECTAB PO SCH (08:25)
[2019-07-04] MEDS ORDERED: INSULIN GLARGINE SOLOSTAR 100 UNITS/ML 3 ML PEN SQ SCH (09:00)
[2019-07-04] MEDS ORDERED: HydrALAZINE HCL 20 MG/ML VIAL IV PRN (12:43)
[2019-07-04] MEDS ORDERED: WARFARIN SOD 10 MG TAB PO SCH (16:00)
--- NOTE | 2019-07-04 16:34 | Hospitalist Progress Note ---
Date of Service July 04, 2019 Assessment & Plan (1) Hypertensive urgency: Present on admission with abdominal pain associated with SOB with BP 204/105 on admission Hypertensive urgency. BP on admission 204/105 on admission Missed his BP meds prior to admission Received IV labetalol and lasix on admission BP improved Continue his home medications of isosorbide dinitrate, lisinopril, Toprol-XL. Hydralazine changed to 50mg TID BP stable SOB Seems to be chronic Possible related to fluid overload Pt said that he gained about 9-11 lbs lbs in the last 3-4 days CXR showed no acute process Received Lasix IV 60mg in the ER Echo showed moderate concentric left ventricular hypertrophy. Borderline global hypokinesis of the left ventricle. Left ventricular ejection faction 50% Nephrology on board recommended Torsemide 10mg daily x5 weekly and as needed shortness of breath or more than 3 pound weight gain in 24 hours or more than 5 pound weight gain in 48 hours Clinically improved Elevated Troponin Possible related to demand ischemia from hypertensive urgency Troponin on admission 0.052 then slightly increased to 0.072, now trending down to 0.05 Denies any chest pain ECHO showed moderate concentric left ventricular hypertrophy. Borderline global hypokinesis of the left ventricle. Left ventricular ejection faction 50% Continue aspirin, Toprol , Statin and coumadin Abdominal pain Etiology unknown Gallbladder u/s showed cholelithiasis. No biliary ductal dilatation or evidence of cholecystitis. Tolerated diet today Currently denies any pain Afib Rate controlled Continue toprol and isosorbide dinitrate On coumadin with INR 1.6 today [facility] up with [facility] Diabetes. Recent Hba1c 9.8 on 07/01/19 Continue Lantus 40 units On insulin sliding scale. Pharmacy on board for glycemic management Monitor BP . Obstructive sleep apnea. Use oxygen in the nighttime. Chronic obstructive pulmonary disease Continue his home inhalers, Currently stable. Acute on Chronic systolic and diastolic congestive heart failure Echo showed moderate concentric left ventricular hypertrophy. Borderline global hypokinesis of the left ventricle. Left ventricular ejection faction 50% S/P biventricular pacemaker and defibrillator implantation in 06/2017. received Lasix in the ER Torsemide increased to 10mg daily Continue home dose lisinopril and Toprol-XL and monitor. Monitor BMP while on torsemide daily Chronic kidney disease stage IV. Baseline creatinine 2.6 to 3, present creatinine of 2.7. Continue monitor BMP DVT px on Coumadin Code status Full code Disposition Discharge home today Admission and Anticipated Discharge Date Admission Date: July 01, 2019 Subjective Pt was seen and examined. Lying in bed with no distress. Pt said that he feels ok He said that he did not sleep well last night because of in/out in his room He said that his breathing is much better Denies any chest pain, palpitation, dizziness and SOB Physical Exam Physical Exam: General- No acute distress Head- atraumatic Eyes- PERRL, EOMI, ENT- oropharynx clear Neck- supple, no JVD Lungs- clear to auscultation Heart- + murmur Abdomen- normal bowel sounds, soft, nontender Extremities- no calf tenderness Neuro- alert, oriented x 3; PERRL, EOMI; no facial palsy; no dysarthria Skin- warm & dry Results & Data ([facility]) Vital Signs (Past 12 Hours) Vital Signs Temp Pulse Resp BP Pulse Ox 07/04/19 15:03 36.7 C 53 L 20 122/70 92 07/04/19 11:35 36.4 C L 80 20 173/96 H 99 07/04/19 08:30 168/85 H 07/04/19 07:30 36.6 C 58 L 19 175/90 H 96
[2019-07-04] MEDS ORDERED: HydrALAZINE TAB 50 MG TAB PO SCH (21:00)
--- NOTE | 2019-07-07 12:00 | Discharge Summary ---
Date of Service July 04, 2019 Admission HPI Per Admitting Provider CHIEF COMPLAINT: Hypertensive urgency and shortness of breath. HISTORY OF PRESENT ILLNESS: This is a 64-year-old male with past medical history significant for history of chronic systolic and diastolic CHF secondary to nonischemic cardiomyopathy, EF of 45-50%, status post ICD, chronic left bundle branch block, history of nonobstructive CAD, peripheral vascular disease, history of AFib on Coumadin, history of moderate aortic stenosis, hypertension, COPD, obstructive sleep apnea, uses oxygen while sleeping, diabetes, insulin requiring; chronic kidney disease stage IV, baseline creatinine around 2.6 to 3; chronic anemia, baseline hemoglobin 11-12; chronic thrombocytopenia, past tobacco abuse, currently chews tobacco; history of pulmonary hypertension, comes here because of shortness of breath and hypertensive urgency. The patient says he belongs to [employer] and associated with them for last 50 years. They are making dinner in the evening when suddenly he does not felt good and felt nauseous, felt like throwing up, and had an abdominal pain and shortness of breath. EMS who were close by was called in and when they checked his blood pressure, his systolic blood pressure was in high 200s, so he was brought into the hospital. He was given nitro which caused some headache, but that resolved now. In the ER, his blood pressure in 200s. He was given a dose of labetalol and dose of Lasix and he is feeling better now. He has some dry cough. Denies any fever, chills, no sore throat, no runny nose, no dizziness. Does felt blurred visions early in the morning, but his blood sugar was low in the 70s, after drinking apple juice, it has improved. He has some lower abdominal pain, thinks from the gallstones. No diarrhea or constipation, no bloody stools or black stools. Normal bladder movements. No hematuria, no burning micturition. He says he sleeps okay. Ambulates okay. Lives with his . Appetite is okay. Recently went to [place] for fistula but he was told his blood vessels were small. Also has plan for his aortic valve repair. Admission Exam Per Admitting Provider GENERAL: The patient is of moderate build, not in acute distress currently. VITAL SIGNS: Temperature 36.8, pulse 61, respiratory rate 23, blood pressure 165/86, oxygen 93% on 2 liters. HEENT: No pallor, no icterus. Pupils equal, round, reactive to light. NECK: No JVD, no neck mass, no carotid bruit. CARDIOVASCULAR: S1, S2 heard, regular rate and rhythm, no murmur, no gallop. RESPIRATORY SYSTEM: Normal AP diameter. No accessory muscle use. No wheezing, no crackles. ABDOMEN: Soft, bowel sounds present. Nontender. No distention. CENTRAL NERVOUS SYSTEM: Cranial nerves II-XII grossly intact. Nonfocal. EXTREMITIES: Trace pedal edema, no erythema seen. Principal Diagnosis Hypertensive urgency: Elevated Troponin Abdominal pain Atrial fibrillation Diabetes. Obstructive sleep apnea. Chronic obstructive pulmonary disease Chronic systolic and diastolic congestive heart failure Chronic kidney disease stage IV. Discharge Exam General- No acute distress Head- atraumatic Eyes- PERRL, EOMI, ENT- oropharynx clear Neck- supple, no JVD Lungs- clear to auscultation Heart- + murmur Abdomen- normal bowel sounds, soft, nontender Extremities- no calf tenderness Neuro- alert, oriented x 3; PERRL, EOMI; no facial palsy; no dysarthria Skin- warm & dry Discharge Data Allergies Allergy/AdvReac Type Severity Reaction Status Date / Time No Known Allergies Allergy Verified 06/30/19 20:54 Consultations 06/30/19 22:04 ED Decision to Admit Stat 07/01/19 01:26 Consult Case Management - Discharge Planning Routine 07/01/19 10:52 Consult Nephrology Routine Ordered Studies 06/30/19 21:34 CT head/brain wo con Stat 07/01/19 07:13 US gallbladder Urgent XR chest 1V portable CLINICAL HISTORY: Dyspnea dyspnea COMPARISON STUDY: 06/05/2019 FINDINGS: Bipolar cardiac pacemaker/defibrillator. Lungs are clear. The diaphragms are smooth. No evidence for focal infiltrate. IMPRESSION: No acute process. ACT 112: Negative or not required by law. The above report was generated using voice recognition software. It may contain grammatical, syntax or spelling errors. Electronically signed by: Billy Phillips M.D. 06/30/2019 9:07 PM Dictated: 06/30/192105 Transcribed: 06/30/192105 CT head/brain wo con CT DOSE: 537.48 mGy.cm HISTORY: Mental status change dizzy TECHNIQUE: Multiaxial CT images of the head were performed without the use of intravenous contrast. A dose lowering technique was utilized adhering to the principles of ALARA. Comparison: 06/05/2019 Findings: The paranasal sinuses and mastoid air cells are clear. The calvarium and skull base are intact. The ventricles and sulci are within normal limits. There is no mass, hematoma, midline shift, or acute infarct. Mild age-related atrophy and chronic small vessel change. This is unaltered from the prior study. Impression: No acute intracranial abnormality. Stable age-related change. ACT 112: Negative or not required by law. The above report was generated using voice recognition software. It may contain grammatical, syntax or spelling errors. Electronically signed by: Billy Phillips M.D. 06/30/2019 9:59 PM Dictated: 06/30/192157 Transcribed: 06/30/192157 gallbladder CLINICAL HISTORY: 64 years-old Male presenting with abdominal pain, gall stones. TECHNIQUE: Real-time grayscale and limited color Doppler ultrasound imaging of the abdomen limited to the right upper quadrant was performed. COMPARISON: 08/02/2018. FINDINGS: Pancreas: Visualized portions of the pancreatic head and body normal. Liver: Normal echogenicity and echotexture. The liver measures 17.6 cm in maximal sagittal dimension. No sonographic evidence of hepatic mass. Main portal vein patent with normal directional flow. Biliary: No intrahepatic biliary ductal dilatation. Common bile duct measures up to 6-8 mm in diameter. Gallbladder: Gallstones without evidence of gallbladder distention, wall thickening, or pericholecystic fluid or inflammatory change. Sonographic Baumann's sign negative. Right kidney: Cortical thinning may be present. No hydronephrosis. Ascites: None. Other: None. IMPRESSION: Cholelithiasis. No biliary ductal dilatation or evidence of cholecystitis. ACT 112: Negative or not required by law. Electronically signed by: Pino Hood M.D. 07/01/2019 8:36 AM Dictated: 07/01/19834 Transcribed: 07/01/19834 Hospital Course (1) Hypertensive urgency: Present on admission with abdominal pain associated with SOB with BP 204/105 on admission Hypertensive urgency. BP on admission 204/105 on admission Missed his BP meds prior to admission Received IV labetalol and lasix on admission BP improved Continue his home medications of isosorbide dinitrate, lisinopril, Toprol-XL. Hydralazine changed to 50mg TID BP stable SOB Seems to be chronic Possible related to fluid overload Pt said that he gained about 9-11 lbs lbs in the last 3-4 days CXR showed no acute process Received Lasix IV 60mg in the ER Echo showed moderate concentric left ventricular hypertrophy. Borderline global hypokinesis of the left ventricle. Left ventricular ejection faction 50% Nephrology on board recommended Torsemide 10mg daily x5 weekly and as needed shortness of breath or more than 3 pound weight gain in 24 hours or more than 5 pound weight gain in 48 hours Clinically improved Elevated Troponin Possible related to demand ischemia from hypertensive urgency Troponin on admission 0.052 then slightly increased to 0.072, now trending down to 0.05 Denies any chest pain ECHO showed moderate concentric left ventricular hypertrophy. Borderline global hypokinesis of the left ventricle. Left ventricular ejection faction 50% Continue aspirin, Toprol , Statin and coumadin Abdominal pain Etiology unknown Gallbladder u/s showed cholelithiasis. No biliary ductal dilatation or evidence of cholecystitis. Tolerated diet today Currently denies any pain Afib Rate controlled Continue toprol and isosorbide dinitrate On coumadin with INR 1.6 today Follow up with the [facility] Diabetes. Recent Hba1c 9.8 on 07/01/19 Continue Lantus 40 units On insulin sliding scale. Pharmacy on board for glycemic management Monitor BP . Obstructive sleep apnea. Use oxygen in the nighttime. Chronic obstructive pulmonary disease Continue his home inhalers, Currently stable. Acute on Chronic systolic and diastolic congestive heart failure Echo showed moderate concentric left ventricular hypertrophy. Borderline global hypokinesis of the left ventricle. Left ventricular ejection faction 50% S/P biventricular pacemaker and defibrillator implantation in 06/2017. received Lasix in the ER Torsemide increased to 10mg daily Continue home dose lisinopril and Toprol-XL and monitor. Monitor BMP while on torsemide daily Chronic kidney disease stage IV. Baseline creatinine 2.6 to 3, present creatinine of 2.7. Continue monitor BMP DVT px on Coumadin Code status Full code Disposition Discharge home today Total Time Total Time Spent Total Time Spent (In Minutes): 35 minutes Total Time Includes: Examination of the Patient, Discharge Planning, Medication Reconciliation, Communication With Other Providers and Other Discharge Plan Discharge Items Patient Disposition: Home - Self-Care Reason For Visit: SOB,ELEVATED BLOOD PRESSURE Discharge Diagnosis: Hypertensive urgency: Elevated Troponin Abdominal pain Atrial fibrillation Diabetes. Obstructive sleep apnea. Chronic obstructive pulmonary disease Chronic systolic and diastolic congestive heart failure Chronic kidney disease stage IV. Activity: Resume your previous activity Non-emergency contact: Primary Care Provider and Roadmaster Call non-emergency contact if: you have any medication questions Follow-up/Referrals: Kathleen Bosch MD, PhD [Physician] - 08/01/19 2:10 pm (Dr Mcdermott August 01, 2019 2:10 pm Spoke with Zoya at scheduling ) Mirlande Melton MD [Primary Care Provider] - 07/07/19 11:20 am (Dr Pickett July 06 11:20 am Spoke with Zoya at scheduling ) Diet: Carb Consistent or DM2 and Low Potassium (2gm) Addtl Attending Provider Instructions: Follow up with your primary care provider Dr. Adams Pickett within 1 week follow up with nephrology with physician's prosthetics assistant Marieelna Bar or Dr Bosch in [employer] or may have to go to [place] depending on appointment availability in about 4-6 weeks Basic metabolic panel to be ordered by nephrology every 2 weeks starting July 10 x 3 checks -Hydralazine dose changed from 25 mg 4 times daily to 50 mg 3 times daily -continue increased 5 days weekly torsemide to 10 mg Thursday, Thursday, Thursday, , Thursday with extra 10 mg dose as needed shortness of breath or more than 3 pound weight gain in 24 hours or more than 5 pound weight gain in 48 hours -continue daily weight and less than 2 gram daily sodium intake diet -Continue metoprolol and lisinopril dosing -Follow up with the coumadin clinic (Take 10 mg coumadin tomorrow ) -Continue oxygen supplement at night -Monitor your blood pressure and bring blood pressure log at your next appointment with your physician -Monitor your blood sugar and bring your blood sugar reading at your next appointment with your physician You can follow the novolog sliding scale in addition before meals If blood sugar: 151 - 170, give 1 unit 171 - 190, give 2 units 191 - 210, give 3 units 211 - 230, give 4 units 231 - 250, give 5 units 251 - 270, give 6 units 271 - 290, give 7 units 291 - 310, give 8 units 311 - 330, give 9 units 331 - 350, give 10 units and notify your physician Pending Studies at Discharge: No Stand-Alone Forms: My [facility], Smoking Cessation Medications and DC Order Prescriptions: New hydralazine 50 mg Tablet 50 mg PO TID 30 Days Qty: 90 RF: 0 Continued isosorbide dinitrate 10 mg Tablet 20 mg PO TIDM RF: 0 metoprolol succinate [Toprol XL] 100 mg Tablet Extended Release 24 Hr 100 mg PO DAILY RF: 0 aspirin 81 mg Tablet,Delayed Release (Dr/Ec) 81 mg PO DAILY RF: 0 pantoprazole [Protonix] 40 mg Tablet,Delayed Release (Dr/Ec) 40 mg PO DAILY RF: 0 rosuvastatin [Crestor] 40 mg Tablet 40 mg PO HS RF: 0 Lantus Solostar U-100 Insulin 100 unit/mL (3 mL) Insulin Pen 60 units SUBCUT DAILY RF: 0 cholecalciferol (vitamin D3) [Vitamin D3] 2,000 unit Capsule 2,000 unit PO DAILY RF: 0 gabapentin 100 mg Capsule 100 mg PO TIDM RF: 0 ipratropium-albuterol 0.5 mg-3 mg(2.5 mg base)/3 mL Solution For Nebulization 3 ml INHALATION QID PRN (Reason: Shortness Of Breath Or Wheezing) RF: 0 albuterol sulfate [ProAir HFA] 90 mcg/actuation Hfa Aerosol Inhaler 2 puff INHALATION Q4H PRN (Reason: Shortness Of Breath Or Wheezing) RF: 0 fluticasone propionate [Flonase Allergy Relief] 50 mcg/actuation [place],Suspension 2 spray INTRANASAL DAILY PRN (Reason: Nasal Congestion) RF: 0 warfarin 5 mg tablet See Rx Instructions .ROUTE .COMPLEX RF: 0 insulin lispro [Humalog KwikPen Insulin] 100 unit/mL Insulin Pen See Rx Instructions .ROUTE .COMPLEX RF: 0 lisinopril 5 mg Tablet 5 mg PO DAILY RF: 0 Vitron-C 65 mg iron- 125 mg Tablet,Delayed Release (Dr/Ec) 1 tab PO BID RF: 0 Changed torsemide 10 mg Tablet 10 mg PO UD Qty: 30 RF: 0 Discontinued hydralazine 25 mg tablet 25 mg PO QID RF: 0 torsemide 10 mg Tablet See Rx Instructions .ROUTE .COMPLEX PRN (Reason: Edema) RF: 0 Discharge Orders: Discharge Order (Routine); Ordered 07/04/19 Ordered By: Barbara Suarez Admission Data Admit Date/Time: 07/01/19 00:33 Attending Provider: Barbara Suarez Admit Provider: Yovanny Desai Primary Care Provider: Mirlande Melton Other Providers: Yovanny Desai ; Hermilo Miller Other Interventions: Discharge Summary Assessment (RN) Last Done: 07/04/19 17:49 DC Date/Time DO NOT enter until pt leaves facility: 07/04/19 18:45
== END 2019-07-04 18:45 | disposition home or self-care (01) | DRG 304 ==
LOC: ED 20:21 → 2S 07-01 00:33

== ENCOUNTER 2019-12-18 03:55 | Inpatient (IN) ==
[2019-12-18] MEDS ORDERED: OPTIRAY 320 125ml IV ONE (04:37)
[2019-12-18 04:44] LABS: Basophils # (auto) 0.01 K/uL (0-0.2); Basophils % (auto) 0.1 %; Eosinophils # (auto) 0.08 K/uL (0-0.5); Hematocrit (blood only) 37.1 % (42-52); Hemoglobin 11.8 g/dL (14.0-18.0); Immature Granulocytes # (auto) 0.02 K/uL (0.00-0.02); Immature Granulocytes % (auto) 0.3 %; Lymphocytes # (auto) 0.56 K/uL (1.2-3.4); Lymphocytes % (auto) 7.2 %; Mean Corpuscular Hemoglobin 26.3 pg (25-34); Mean Corpuscular Hgb Conc 31.8 g/dL (32-36); Mean Corpuscular Volume 82.8 fL (80-100); Mean Platelet Volume 9.5 fL (7.4-10.4); Monocytes # (auto) 0.58 K/uL (0.11-0.59); Monocytes % (auto) 7.5 %; Neutrophils # (auto) 6.48 K/uL (1.4-6.5); Neutrophils % (auto) 83.9 %; Platelet Count 107 K/uL (130-400); RDW Coefficient of Variation 15.2 % (11.5-14.5); RDW Standard Deviation 45.7 fL (36.4-46.3); Red Blood Count 4.48 M/uL (4.7-6.1); White Blood Count 7.73 K/uL (4.8-10.8)
[2019-12-18 04:59] LABS: INR 1.5 (0.9-1.1); Partial Thromboplastin Ratio 1.1; Partial Thromboplastin Time 30.4 Seconds (21.0-31.0); Prothrombin Time 15.1 Seconds (9.0-12.0)
[2019-12-18 05:14] LABS: Albumin Globulin Ratio 0.9 (0.9-2); Albumin Level 3.3 gm/dl (3.4-5.0); Bilirubin,Total 0.6 mg/dl (0.2-1); Calcium 8.8 mg/dl (8.5-10.1); Creatinine Clr Calc Pharmacy 32.9 ml/min; Est GFR (African American) 24.4; Est GFR (Non-African American) 21.1; Globulin 3.5 gm/dl (2.5-4.0); Magnesium 2.1 mg/dl (1.8-2.4); Potassium 4.3 mmol/L (3.5-5.1); Total Protein 6.8 gm/dl (6.4-8.2); Troponin I 0.057 ng/ml (0-0.045)
--- NOTE | 2019-12-18 05:18 | Emergency Department Note ---
Impression & Plan Acute CVA (cerebrovascular accident), Hypertension ED Provider Note NAME: NIRANJAN VILLALTA AGE: 64 SEX: M ARRIVES VIA: Ambulance INFORMANT: Patient, patient's cwrkqqgn-[id number] and son ED PROVIDER(S): Jo Gracia DO CHIEF COMPLAINT: Stroke symptoms PLAN: Disposition: Admitted to the [facility] service Condition: Stable MEDICAL DECISION MAKING: This is a 64-year-old male patient with an extensive past medical history who presents to the emergency department with strokelike symptoms. CT scan of the brain was unremarkable. He went through [facility] tele-stroke and they recommended hospitalization here at [facility]. The patient did not meet criteria for TPA as he fell outside the window with his last known well time at 9 PM last night. Patient has expressive aphasia. He has a subtherapeutic INR as he had been off his Coumadin to undergo colonoscopy. Triage Nursing notes reviewed and agree them. Additional history obtained from the patient's [id number]-csm and son Prior medical records reviewed Vital Signs: reviewed and unremarkable Differential diagnosis: Hypoglycemia, hyperglycemia, TIA, CVA ER treatment provided: IV hydralazine Diagnostics interpreted by me: ECG: Ventricular paced rhythm at 97. There is no ST segment elevation to suggest ischemia. There is no obvious ectopy Cardiac Monitoring: Ventricular paced rhythm at a rate of 98 Laboratory studies: See below Imaging studies: As per stat read CT head: No ICH, mass-effect or edema. No evidence of acute cortical stroke. Visualized sinuses and mastoid air cells are clear CTA head: Intracranial vascular structures including the anterior, middle, and posterior cerebral arteries and basilar artery enhance normally with no occlusion. Dural sinuses enhance normally. There is no enhancing mass. Impression: No vascular occlusion. CTA neck: There are atherosclerotic changes at the carotid bifurcation bilaterally on the right there is estimated 50% stenosis at the origin of the right internal carotid artery. There is atherosclerotic change at the origin of the left vertebral artery with tight stenosis. Superior to the origin, the left vertebral artery enhances normally. There is normal enhancement and internal carotid arteries in the right vertebral arteries. Consultation(s): Dr. Lugo tele-stroke neurology HPI: 64/M arrives for evaluation of difficulty with speech. This is a 64-year-old male patient with a history of chronic health issues who presents to the emergency department after having difficulty formulating words and his family noticing that he could not make sense. The family thought that his blood sugar may be low so they gave him additional food and his speech seemed to improve but then it seemed to worsen again. The patient seemed to know what he wanted to say but got frustrated that he could not say it. ROS: See above HPI for pertinent positives & negatives. A total of 10 systems reviewed and were otherwise negative. PAST MEDICAL HISTORY:See Below PAST SURGICAL HISTORY:See Below FAMILY HISTORY:See Below SOCIAL HISTORY:See Below HOME MEDICATIONS:See list ALLERGIES:None VITALS:See Below PHYSICAL EXAMINATION: HEENT: Head - normocephalic and atraumatic. Pupils are equal, round, and reactive to light. Extraocular eye muscles are intact and sclera are anicteric. Ears - bilaterally patent canals with noninjected tympanic membranes and no evidence of hemotympanum. Nose - moist nasal mucosa without discharge. Mouth - moist buccal mucosa. Oropharynx is nonerythematous and there is no tonsillar exudate or edema noted. Neck: Supple; no JVD, nuchal rigidity, cervical lymphadenopathy, or auscultated bruits. Heart: Regular rate and rhythm. There is a normal S1 and S2 with no murmurs, clicks, or gallops appreciated. Lungs: Clear to auscultation bilaterally with no wheezes, rales, or rhonchi. Abdomen: Soft, completely nontender, nondistended, with good bowel sounds. There are no palpable pulsatile masses or hepatosplenomegaly. There is no guarding, rigidity, or rebound noted. Extremities: No evidence of cyanosis, clubbing, or edema. There are easily palpable peripheral pulses. Neuro:The patient is awake and alert, but appears to have expressive a aphasia. Muscle strength is 5/5 in all 4 extremities. The patient has equal early childhood lead teacher strength and equal pedal push and pull. There are no cerebellar signs. ED COURSE: Times/Reassessments: 4:00 the patient was evaluated quickly in room C9. A history and physical was performed and a stroke alert was called. Laboratory studies were drawn. the patient went emergently to CT scan. The patient returned to room B1. A twelve- lead EKG was obtained 0450: I discussed the case with the [facility] [id number]. Betterman who will then perform an assessment by tele-stroke 0515: I discussed the case again with Dr. Hobbs and she recommended admission to the hospital here at [facility] by internal medicine. 0528: I discussed the case with the patient and his family and brought them up to speed. The patient was significantly hypertensive and was given 10 mg of IV hydralazine. I have personally spent greater than 65 minutes of critical care time in the direct management of this patient. This includes bedside care, interpretation of diagnostic studies, and testing, discussion with consultants, patient, and family members, and other required patient management activities. This 65 minutes is in excess of all separately billable procedures. Jo Gracia DO Past Med/Surg History Medical History (Updated 12/19/19 @ 07:01 by Jo Gracia DO) Aortic stenosis Asthma Atrial fibrillation on chronic anticoagulation CAD (coronary artery disease) "nonobstructive" Chronic anemia Chronic systolic (congestive) heart failure Diabetic neuropathy DM type 2 (diabetes mellitus, type 2) Dyslipidemia GERD (gastroesophageal reflux disease) Hypertension LBBB (left bundle branch block) Nocturnal hypoxia on 2L NC O2 HS Thrombocytopenia Surgical History H/O cardiac catheterization Non nonobstructive CAD on 2017 cardiac cath Presence of combination internal cardiac defibrillator (ICD) and pacemaker Family History Other Diabetes Hypertension Lung cancer Social History Smoking Status: Never smoker Tobacco Type: Smokeless Tobacco (Dip or Chew) Second Hand Exposure: No; Do You Dip or Chew Tobacco: Yes; Hx Alcohol Use: No Hx Substance Use: No Preferred Language: Yi Communication Ability: Impaired Visual Impairment: Limited Industrial Safety And Health Manager Required: No Beliefs That Will Affect Care: None marital status: Current Living Situation: Spouse current occupational status: retired 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 Other Information That Helps Us Care for You: No Feels Safe at Home: Yes Safety Concerns: Feels Safe At This Time Allergies Allergies Allergy/AdvReac Type Severity Reaction Status Date / Time No Known Allergies Allergy Verified 12/18/19 04:29 Home Meds Home Medications Medication Instructions Recorded Confirmed Lantus Solostar U-100 Insulin 70 units SUBCUT DAILY 02/05/18 12/18/19 aspirin 81 mg PO DAILY 02/05/18 12/18/19 cholecalciferol (vitamin D3) 2,000 unit PO DAILY 02/05/18 12/18/19 [Vitamin D3] isosorbide dinitrate 30 mg PO TIDM 02/05/18 12/18/19 metoprolol succinate [Toprol XL] 100 mg PO BID 02/05/18 12/18/19 pantoprazole [Protonix] 40 mg PO DAILY 02/05/18 12/18/19 rosuvastatin [Crestor] 40 mg PO HS 02/05/18 12/18/19 gabapentin 100 mg PO TIDM 05/14/18 12/18/19 albuterol sulfate [ProAir HFA] 2 puff INHALATION Q4H PRN 08/01/18 12/18/19 fluticasone propionate [Flonase 2 spray INTRANASAL DAILY PRN 08/01/18 12/18/19 Allergy Relief] ipratropium-albuterol 3 ml INHALATION QID PRN 08/01/18 12/18/19 warfarin See Rx Instructions .ROUTE .COMPLEX 10/03/18 12/18/19 Vitron-C 1 tab PO BID 06/05/19 12/18/19 insulin lispro [Humalog KwikPen See Rx Instructions .ROUTE .COMPLEX 06/05/19 12/18/19 Insulin] lisinopril 5 mg PO DAILY 06/05/19 12/18/19 fluticasone propion-salmeterol 1 inh INHALATION BID 12/18/19 12/18/19 [Advair Diskus] hydralazine 75 mg PO TID 12/18/19 12/18/19 torsemide 10 mg PO [id number] 12/18/19 12/18/19 Results & Data (ED) Vital Signs Vital Signs - 24 hr 12/18/19 04:14 12/18/19 04:29 12/18/19 04:45 Temperature 36.7 C Temperature Source Oral Pulse Rate 92 H 92 H 85 Respiratory Rate 21 24 20 Respiratory Effort / Characteristics Non-Labored Spontaneous Respiratory Depth Normal Blood Pressure 167/103 H 156/103 H 173/115 H Blood Pressure Mean 124 121 130 Pulse Oximetry 94 96 Oxygen Delivery Method Room Air Sepsis New/Unexplained Change in Mental Status Yes Sepsis Action Taken by Nursing Physician Notified 12/18/19 05:00 12/18/19 05:15 Temperature Temperature Source Pulse Rate 91 H 104 H Respiratory Rate 20 22 Respiratory Effort / Characteristics Respiratory Depth Blood Pressure 164/111 H 176/121 H Blood Pressure Mean 126 156 Pulse Oximetry 93 94 Oxygen Delivery Method Sepsis New/Unexplained Change in Mental Status Sepsis Action Taken by Nursing Laboratory Data Result diagrams: 12/18/19 04:31 12/18/19 04:31 Lab Results 12/18/19 12/18/19 12/18/19 Range/Units 04:02 04:31 04:31 WBC 7.73 (4.8-10.8) K/uL RBC 4.48 L (4.7-6.1) M/uL Hgb 11.8 L (14.0-18.0) g/dL Hct 37.1 L (42-52) % MCV 82.8 (80-100) fL MCH 26.3 (25-34) pg MCHC 31.8 L (32-36) g/dL RDW Std Deviation 45.7 (36.4-46.3) fL RDW Coeff of Joey 15.2 H (11.5-14.5) % Plt Count 107 L (130-400) K/uL MPV 9.5 (7.4-10.4) fL Immature Gran % (Auto) 0.3 % Neut % (Auto) 83.9 % Lymph % (Auto) 7.2 % Noble % (Auto) 7.5 % Eos % (Auto) 1.0 % Baso % (Auto) 0.1 % Neut # (Auto) 6.48 (1.4-6.5) K/uL Lymph # (Auto) 0.56 L (1.2-3.4) K/uL Noble # (Auto) 0.58 (0.11-0.59) K/uL Eos # (Auto) 0.08 (0-0.5) K/uL Baso # (Auto) 0.01 (0-0.2) K/uL Immature Gran # (Auto) 0.02 (0.00-0.02) K/uL PT (9.0-12.0) Seconds INR (0.9-1.1) APTT (21.0-31.0) Seconds PTT Ratio Sodium (136-145) mmol/L Potassium (3.5-5.1) mmol/L Chloride (98-107) mmol/L Carbon Dioxide (21-32) mmol/L Anion Gap (3-11) BUN (7-18) mg/dl Creatinine (0.6-1.4) mg/dl Est Cr Clr Drug Dosing ml/min Est GFR ( Amer) Est GFR (Non-Af Amer) BUN/Creatinine Ratio (10-20) Glucose (70-99) mg/dl POC Glucose 365 H* (70-99) mg/dl Estimat Average Glucose mg/dl Hemoglobin A1c (4.5-5.6) % Calcium (8.5-10.1) mg/dl Magnesium (1.8-2.4) mg/dl Total Bilirubin (0.2-1) mg/dl AST (15-37) U/L ALT (12-78) U/L Alkaline Phosphatase (45-117) U/L Troponin I (0-0.045) ng/ml Total Protein (6.4-8.2) gm/dl Albumin (3.4-5.0) gm/dl Globulin (2.5-4.0) gm/dl Albumin/Globulin Ratio (0.9-2) Beta-Hydroxybutyric Acd (0.2-2.81) mg/dl Hepatitis C Ab Screen (Neg) Blood Type A Positive Antibody Screen NEGATIVE 12/18/19 12/18/19 12/18/19 Range/Units 04:31 04:31 04:31 WBC (4.8-10.8) K/uL RBC (4.7-6.1) M/uL Hgb (14.0-18.0) g/dL Hct (42-52) % MCV (80-100) fL MCH (25-34) pg MCHC (32-36) g/dL RDW Std Deviation (36.4-46.3) fL RDW Coeff of Joey (11.5-14.5) % Plt Count (130-400) K/uL MPV (7.4-10.4) fL Immature Gran % (Auto) % Neut % (Auto) % Lymph % (Auto) % Noble % (Auto) % Eos % (Auto) % Baso % (Auto) % Neut # (Auto) (1.4-6.5) K/uL Lymph # (Auto) (1.2-3.4) K/uL Noble # (Auto) (0.11-0.59) K/uL Eos # (Auto) (0-0.5) K/uL Baso # (Auto) (0-0.2) K/uL Immature Gran # (Auto) (0.00-0.02) K/uL PT 15.1 H (9.0-12.0) Seconds INR 1.5 H (0.9-1.1) APTT 30.4 (21.0-31.0) Seconds PTT Ratio 1.1 Sodium 137 (136-145) mmol/L Potassium 4.3 (3.5-5.1) mmol/L Chloride 103 (98-107) mmol/L Carbon Dioxide 26 (21-32) mmol/L Anion Gap 8.0 (3-11) BUN 50 H (7-18) mg/dl Creatinine 2.97 H (0.6-1.4) mg/dl Est Cr Clr Drug Dosing 32.9 ml/min Est GFR ( Amer) 24.4 Est GFR (Non-Af Amer) 21.1 BUN/Creatinine Ratio 17.0 (10-20) Glucose 348 H* (70-99) mg/dl POC Glucose (70-99) mg/dl Estimat Average Glucose mg/dl Hemoglobin A1c (4.5-5.6) % Calcium 8.8 (8.5-10.1) mg/dl Magnesium 2.1 (1.8-2.4) mg/dl Total Bilirubin 0.6 (0.2-1) mg/dl AST 24 (15-37) U/L ALT 32 (12-78) U/L Alkaline Phosphatase 105 (45-117) U/L Troponin I 0.057 H* (0-0.045) ng/ml Total Protein 6.8 (6.4-8.2) gm/dl Albumin 3.3 L (3.4-5.0) gm/dl Globulin 3.5 (2.5-4.0) gm/dl Albumin/Globulin Ratio 0.9 (0.9-2) Beta-Hydroxybutyric Acd 3.56 H (0.2-2.81) mg/dl Hepatitis C Ab Screen Neg (Neg) Blood Type Antibody Screen 12/18/19 Range/Units 04:31 WBC (4.8-10.8) K/uL RBC (4.7-6.1) M/uL Hgb (14.0-18.0) g/dL Hct (42-52) % MCV (80-100) fL MCH (25-34) pg MCHC (32-36) g/dL RDW Std Deviation (36.4-46.3) fL RDW Coeff of Joey (11.5-14.5) % Plt Count (130-400) K/uL MPV (7.4-10.4) fL Immature Gran % (Auto) % Neut % (Auto) % Lymph % (Auto) % Noble % (Auto) % Eos % (Auto) % Baso % (Auto) % Neut # (Auto) (1.4-6.5) K/uL Lymph # (Auto) (1.2-3.4) K/uL Noble # (Auto) (0.11-0.59) K/uL Eos # (Auto) (0-0.5) K/uL Baso # (Auto) (0-0.2) K/uL Immature Gran # (Auto) (0.00-0.02) K/uL PT (9.0-12.0) Seconds INR (0.9-1.1) APTT (21.0-31.0) Seconds PTT Ratio Sodium (136-145) mmol/L Potassium (3.5-5.1) mmol/L Chloride (98-107) mmol/L Carbon Dioxide (21-32) mmol/L Anion Gap (3-11) BUN (7-18) mg/dl Creatinine (0.6-1.4) mg/dl Est Cr Clr Drug Dosing ml/min Est GFR ( Amer) Est GFR (Non-Af Amer) BUN/Creatinine Ratio (10-20) Glucose (70-99) mg/dl POC Glucose (70-99) mg/dl Estimat Average Glucose 269 mg/dl Hemoglobin A1c 11.0 H (4.5-5.6) % Calcium (8.5-10.1) mg/dl Magnesium (1.8-2.4) mg/dl Total Bilirubin (0.2-1) mg/dl AST (15-37) U/L ALT (12-78) U/L Alkaline Phosphatase (45-117) U/L Troponin I (0-0.045) ng/ml Total Protein (6.4-8.2) gm/dl Albumin (3.4-5.0) gm/dl Globulin (2.5-4.0) gm/dl Albumin/Globulin Ratio (0.9-2) Beta-Hydroxybutyric Acd (0.2-2.81) mg/dl Hepatitis C Ab Screen (Neg) Blood Type Antibody Screen Administered Medications Aspirin (Aspirin 81 Mg Ectab) 81 mg PO DAILY [facility] Stop: 01/17/20 08:59 Last Admin: 12/18/19 08:04 Dose: 81 mg Documented by: [id number] Gabapentin (Gabapentin 100 Mg Cap) 100 mg PO TIDM [facility]YSIA Stop: 01/17/20 07:59 Last Admin: 12/18/19 17:28 Dose: 100 mg Documented by: [id number] Admin: 12/18/19 12:07 Dose: 100 mg Documented by: [id number] Admin: 12/18/19 08:04 Dose: 100 mg Documented by: [id number] Heparin Sodium (Porcine) (Heparin Sod 5,000 Unit/0.5 Ml Vial) 5,000 units SQ Q8 [facility] Stop: 01/17/20 13:59 Last Admin: 12/19/19 04:59 Dose: 5,000 units Documented by: [id number] Cosigned by: [id number] Admin: 12/18/19 20:25 Dose: 5,000 units Documented by: [id number] Cosigned by: [id number] Admin: 12/18/19 15:13 Dose: 5,000 units Documented by: [id number] Cosigned by: [id number] Insulin Aspart (Insulin Aspart 100 Units/Ml 3 Ml Pen) 0 units SC ACHS [facility]IA Stop: 01/17/20 07:29 Last Admin: 12/18/19 20:22 Dose: Not Given Documented by: [id number] Cosigned by: [id number] Admin: 12/18/19 17:27 Dose: 9 units Documented by: [id number] Cosigned by: [id number] Admin: 12/18/19 12:08 Dose: 13 units Documented by: [id number] Cosigned by: [id number] Admin: 12/18/19 08:06 Dose: 5 units Documented by: [id number] Cosigned by: [id number] Ipratropium [place] (Ipratropium [place] Neb Soln 0.02% 2.5 Ml Vial) 0.5 mg INH Q6R PRN PRN Reason: sob/wheezing Stop: 01/17/20 17:59 Last Admin: 12/18/19 18:14 Dose: 0.5 mg Documented by: [id number] Levalbuterol HCl (Levalbuterol Hcl 0.63 Mg/3 Ml Neb) 0.63 mg NEB Q6R PRN PRN Reason: sob/wheezing Stop: 01/17/20 17:59 Last Admin: 12/18/19 18:14 Dose: 0.63 mg Documented by: [id number] Metoprolol Succinate (Metoprolol Succ 50mg Ext Rel Tab) 100 mg PO BID [facility]IA Stop: 01/17/20 20:59 Last Admin: 12/18/19 20:25 Dose: 100 mg Documented by: [id number] Pantoprazole Sodium (Pantoprazole 40 Mg Tab) 40 mg PO DAILY [facility]IA Stop: 01/17/20 08:59 Last Admin: 12/18/19 08:04 Dose: 40 mg Documented by: [id number] Rosuvastatin Calcium (Rosuvastatin Calcium 20 Mg Tab) 40 mg PO HS [facility]IA Stop: 01/17/20 20:59 Last Admin: 12/18/19 20:25 Dose: 40 mg Documented by: [id number] Discontinued Medications Hydralazine HCl (Hydralazine Hcl 20 Mg/Ml Vial) 10 mg IV NOW STA Stop: 12/18/19 05:30 Last Admin: 12/18/19 05:31 Dose: 10 mg Documented by: [id number] Digoxin 250 mcg/ Syringe 10 mls @ 2 mls/min IV NOW STA Stop: 12/18/19 05:43 Last Admin: 12/18/19 05:44 Dose: Not Given Documented by: [id number] Albumin Human (Albumin 25%) 50 mls @ 50 mls/hr IV ONE STA Stop: 12/18/19 06:48 Last Infusion: 12/18/19 06:59 Dose: 0 mls/hr Documented by: [id number] Admin: 12/18/19 05:59 Dose: 50 mls/hr Documented by: [id number] Insulin Glargine (Insulin Glargine Solostar 100 Units/Ml 3 Ml Pen) 40 units SC NOW STA Stop: 12/18/19 06:11 Last Admin: 12/18/19 06:27 Dose: 40 units Documented by: [id number] Cosigned by: [id number] Ioversol (Optiray 320 125ml) 118 ml IV ONCE ONE Stop: 12/18/19 04:38 Last Admin: 12/18/19 04:37 Dose: 1 ml Documented by: [id number] Metoprolol Succinate (Metoprolol Succ 25mg Ext Rel Tab) 25 mg PO BID [facility]YSIA Stop: 01/17/20 07:09 Last Admin: 12/18/19 08:04 Dose: 25 mg Documented by: [id number] Metoprolol Succinate (Metoprolol Succ 25mg Ext Rel Tab) 25 mg PO ONE ONE Stop: 12/18/19 11:33 Last Admin: 12/18/19 12:07 Dose: 25 mg Documented by: [id number] Warfarin Sodium (Warfarin Sod 5 Mg Tab) 5 mg PO NOW STA Stop: 12/18/19 06:11 Last Admin: 12/18/19 06:26 Dose: 5 mg Documented by: [id number] Discharge Plan Visit Data Chief Complaint: Stroke Alert Stated Complaint: AMS ED Provider: Jo Gracia Discharge Problem: Acute CVA (cerebrovascular accident), Hypertension Patient Disposition: Admitted As Inpatient Discharge Instructions Interventions: ED Discharge Assessment Last Done: 12/18/19 06:39 Discharge Problem: Hypertension Qualifiers: Hypertension type: unspecified Qualified Code(s): I10 - Essential (primary) hypertension
[2019-12-18] MEDS ORDERED: HydrALAZINE HCL 20 MG/ML VIAL IV STA (05:29)
[2019-12-18 05:36] LABS: Beta-Hydroxybutyrate 3.56 mg/dl (0.2-2.81)
[2019-12-18] MEDS ORDERED: DIGOXIN 250 MCG in SYRINGE 9 ML IV STA (05:39)
[2019-12-18] MEDS ORDERED: ALBUMIN 25% 50 ML IV STA (05:49)
[2019-12-18] MEDS ORDERED: INSULIN GLARGINE SOLOSTAR 100 UNITS/ML 3 ML PEN SC STA (06:10)
[2019-12-18] MEDS ORDERED: WARFARIN SOD 5 MG TAB PO STA (06:10)
--- NOTE | 2019-12-18 06:11 | History & Physical Report ---
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 hx AF sp PPM, subtherapeutic INR after Coumadin was held for a few days for recent outpatient EGD Hypertension, elevated secondary to above Troponin elevation secondary to above chronic diastolic heart failure secondary to nonischemic cardiomyopathy (EF 50%, TTE 2019) status post ICD Some congestion on CXR chronic LBBB hx nonocclusive CAD/ PVD as per records, VHD (moderate aortic stenosis, mild AR/TR) COPD as per records, pulmonary status at baseline DM 2 insulin requiring, patient markedly hyperglycemic, suboptimal control as of recent outpatient HgA1c of 10.6, 11/2019 chronic renal insufficiency, creatinine at baseline chronic anemia secondary to CKD, hemoglobin at baseline chronic thrombocytopenia past tobacco abuse Medical telemetry Neurochecks Facilitate Coumadin INR goal between 2 and 3 Permissive hypertension for now Follow troponin CT head after 24 hours (MRI precluded by PPM/ICD) Neurology consult RE aphasia PT OT eval Basal insulin, ISS BG goal [id number], carb count coverage DVT prophylaxis. Coumadin INR goal between 2 and 3 Full code Patient's requesting updates for providers. Ms. Lina Delarosa (contact numbers [phone], [phone]) Text document was generated using Unbound voice recognition software. It may contain grammatical or spelling errors. Kindly contact undersigned for clarification of any documentation item in question. History of Present Illness Chief Complaint: Aphasia Primary Care Provider: Mirlande Pickett MD History obtained from patient, family, and records. History somewhat limited from patient secondary to aphasia. Medical history significant for chronic diastolic heart failure secondary to nonischemic cardiomyopathy (EF 50%, TTE 2019) status post ICD, chronic LBBB, hx nonocclusive CAD, PVD as per records, A. fib on Coumadin, VHD (moderate aortic stenosis, mild AR/TR) hypertension, COPD as per records, ARPIT, DM 2 insulin requiring, chronic renal insufficiency (baseline creatinine of 2.6-3), chronic anemia (baseline hemoglobin of 10-11), chronic thrombocytopenia, past tobacco abuse Recent confinement June 2019 hypertensive urgency. Patient underwent outpatient EGD/EUS at [facility] 3 days ago for work-up for pancreatitis of unclear etiology following confinement at [facility] last month. Gastritis found on EGD. No significant pancreatic pathology on EUS. Coumadin stopped few days prior to procedure eventually resumed postprocedure. Around 9 PM last night, patient was at the [facility] with his family when patient was noted to have trouble finding the right words. Asking for hash brown when he really wanted chicken tenders as per family. On the way home, word finding difficulty more pronounced as per family. No facial asymmetry or arm weakness as per family. Usual bilateral leg weakness from arthritis as per family. Patient denies headache, chest pain, S OB. Weight at home a little up as per patient. Stroke alert called upon arrival at the ER. TPA not indicated as per [facility] tele-stroke neurologist. 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 Allergies Allergy/AdvReac Type Severity Reaction Status Date / Time No Known Allergies Allergy Verified 12/18/19 04:29 Home Medications Home Medications Medication Instructions Recorded Confirmed Type Lantus Solostar U-100 Insulin 70 units SUBCUT DAILY 02/05/18 12/18/19 History aspirin 81 mg PO DAILY 02/05/18 12/18/19 History cholecalciferol (vitamin D3) 2,000 unit PO DAILY 02/05/18 12/18/19 History [Vitamin D3] isosorbide dinitrate 30 mg PO TIDM 02/05/18 12/18/19 History metoprolol succinate [Toprol XL] 100 mg PO BID 02/05/18 12/18/19 History pantoprazole [Protonix] 40 mg PO DAILY 02/05/18 12/18/19 History rosuvastatin [Crestor] 40 mg PO HS 02/05/18 12/18/19 History gabapentin 100 mg PO TIDM 05/14/18 12/18/19 History albuterol sulfate [ProAir HFA] 2 puff INHALATION Q4H PRN 08/01/18 12/18/19 History fluticasone propionate [Flonase 2 spray INTRANASAL DAILY PRN 08/01/18 12/18/19 History Allergy Relief] ipratropium-albuterol 3 ml INHALATION QID PRN 08/01/18 12/18/19 History warfarin See Rx Instructions .ROUTE .COMPLEX 10/03/18 12/18/19 History Vitron-C 1 tab PO BID 06/05/19 12/18/19 History insulin lispro [Humalog KwikPen See Rx Instructions .ROUTE .COMPLEX 06/05/19 12/18/19 History Insulin] lisinopril 5 mg PO DAILY 06/05/19 12/18/19 History fluticasone propion-salmeterol 1 inh INHALATION BID 12/18/19 12/18/19 History [Advair Diskus] hydralazine 75 mg PO TID 12/18/19 12/18/19 History torsemide 10 mg PO 5XWK 12/18/19 12/18/19 History Past Med/Surg History Medical History (Updated 12/18/19 @ 08:30 by Claudio Vazquez MD) Aortic stenosis Asthma Atrial fibrillation on chronic anticoagulation CAD (coronary artery disease) "nonobstructive" Chronic anemia Chronic systolic (congestive) heart failure Diabetic neuropathy DM type 2 (diabetes mellitus, type 2) Dyslipidemia GERD (gastroesophageal reflux disease) Hypertension LBBB (left bundle branch block) Nocturnal hypoxia on 2L NC O2 HS Thrombocytopenia Surgical History H/O cardiac catheterization Non nonobstructive CAD on 2016 cardiac cath Presence of combination internal cardiac defibrillator (ICD) and pacemaker Family History Other Diabetes Hypertension Lung cancer Social History Smoking Status: Never smoker Tobacco Type: Smokeless Tobacco (Dip or Chew) Second Hand Exposure: No; Do You Dip or Chew Tobacco: Yes; Hx Alcohol Use: No Hx Substance Use: No Preferred Language: Gibraltarian Communication Ability: Impaired Visual Impairment: Limited Electronic Masking System Operator Required: No Beliefs That Will Affect Care: None marital status: Current Living Situation: Spouse current occupational status: retired 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 Other Information That Helps Us Care for You: No Feels Safe at Home: Yes Safety Concerns: Feels Safe At This Time Review of Systems Review of Systems: Could not be reliably obtained Physical Exam Physical Exam: GENERAL: Comfortable, morbidly obese, somewhat laconic, no respiratory distress SKIN: Pallor, warm HEENT: Partial alopecia, pale palpebral conjunctivae, no ptosis, dry buccal mucosa NECK : Supple, short neck, no tenderness CHEST : Decreased breath sounds , no tenderness HEART : RRR, systolic murmur ABDOMEN: Some distention, nontender EXTREMITIES : Minimal LE swelling, no LE tenderness, no other conspicuous deformities noted NEUROLOGIC : Coherent, no facial asymmetry, gait and stance not assessed Results & Data Results & Data ([facility]) Vital Signs (Past 12 Hours) Vital Signs Temp Pulse Resp BP Pulse Ox 12/18/19 06:00 91 H 22 160/105 H 94 12/18/19 05:45 93 H 22 154/108 H 97 12/18/19 05:30 90 22 176/115 H 93 12/18/19 05:15 104 H 22 176/121 H 94 12/18/19 05:00 91 H 20 164/111 H 93 12/18/19 04:45 85 20 173/115 H 96 12/18/19 04:29 92 H 24 156/103 H 94 12/18/19 04:14 36.7 C 92 H 21 167/103 H Laboratory Results Laboratory Results WBC 7.73 K/uL (4.8-10.8) 12/18/19 04:31 RBC 4.48 M/uL (4.7-6.1) L 12/18/19 04:31 Hgb 11.8 g/dL (14.0-18.0) L 12/18/19 04:31 Hct 37.1 % (42-52) L 12/18/19 04:31 MCV 82.8 fL (80-100) 12/18/19 04:31 MCH 26.3 pg (25-34) 12/18/19 04:31 MCHC 31.8 g/dL (32-36) L 12/18/19 04:31 RDW Std Deviation 45.7 fL (36.4-46.3) 12/18/19 04:31 RDW Coeff of Joey 15.2 % (11.5-14.5) H 12/18/19 04:31 Plt Count 107 K/uL (130-400) L 12/18/19 04:31 MPV 9.5 fL (7.4-10.4) 12/18/19 04:31 Immature Gran % (Auto) 0.3 % 12/18/19 04:31 Neut % (Auto) 83.9 % 12/18/19 04:31 Lymph % (Auto) 7.2 % 12/18/19 04:31 [place] % (Auto) 7.5 % 12/18/19 04:31 Eos % (Auto) 1.0 % 12/18/19 04:31 Baso % (Auto) 0.1 % 12/18/19 04:31 Neut # (Auto) 6.48 K/uL (1.4-6.5) 12/18/19 04:31 Lymph # (Auto) 0.56 K/uL (1.2-3.4) L 12/18/19 04:31 [place] # (Auto) 0.58 K/uL (0.11-0.59) 12/18/19 04:31 Eos # (Auto) 0.08 K/uL (0-0.5) 12/18/19 04:31 Baso # (Auto) 0.01 K/uL (0-0.2) 12/18/19 04:31 Immature Gran # (Auto) 0.02 K/uL (0.00-0.02) 12/18/19 04:31 PT 15.1 Seconds (9.0-12.0) H 12/18/19 04:31 INR 1.5 (0.9-1.1) H 12/18/19 04:31 APTT 30.4 Seconds (21.0-31.0) 12/18/19 04:31 PTT Ratio 1.1 12/18/19 04:31 Sodium 137 mmol/L (136-145) 12/18/19 04:31 Potassium 4.3 mmol/L (3.5-5.1) 12/18/19 04:31 Chloride 103 mmol/L (98-107) 12/18/19 04:31 Carbon Dioxide 26 mmol/L (21-32) 12/18/19 04:31 Anion Gap 8.0 (3-11) 12/18/19 04:31 BUN 50 mg/dl (7-18) H 12/18/19 04:31 Creatinine 2.97 mg/dl (0.6-1.4) H 12/18/19 04:31 Est Cr Clr Drug Dosing 32.9 ml/min 12/18/19 04:31 Est GFR ( Amer) 24.4 12/18/19 04:31 Est GFR (Non-Af Amer) 21.1 12/18/19 04:31 BUN/Creatinine Ratio 17.0 (10-20) 12/18/19 04:31 Glucose 348 mg/dl (70-99) H* 12/18/19 04:31 POC Glucose 365 mg/dl (70-99) H* 12/18/19 04:02 Calcium 8.8 mg/dl (8.5-10.1) 12/18/19 04:31 Magnesium 2.1 mg/dl (1.8-2.4) 12/18/19 04:31 Total Bilirubin 0.6 mg/dl (0.2-1) 12/18/19 04:31 AST 24 U/L (15-37) 12/18/19 04:31 ALT 32 U/L (12-78) 12/18/19 04:31 Alkaline Phosphatase 105 U/L (45-117) 12/18/19 04:31 Troponin I 0.057 ng/ml (0-0.045) H* 12/18/19 04:31 Total Protein 6.8 gm/dl (6.4-8.2) 12/18/19 04:31 Albumin 3.3 gm/dl (3.4-5.0) L 12/18/19 04:31 Globulin 3.5 gm/dl (2.5-4.0) 12/18/19 04:31 Albumin/Globulin Ratio 0.9 (0.9-2) 12/18/19 04:31 Beta-Hydroxybutyric Acd 3.56 mg/dl (0.2-2.81) H 12/18/19 04:31 Blood Type A Positive 12/18/19 04:31 Antibody Screen NEGATIVE 12/18/19 04:[address] head initial read: No ICH, mass-effect or edema. No evidence of acute cortical stroke. CTA head initial read: Intracranial vascular structures including the anterior middle and posterior cerebral arteries and basilar artery enhance normally with no occlusion. CTA neck initial read atherosclerotic changes at the carotid bifurcation bilaterally. Estimated 50% stenosis at the origin of right ICA. Atherosclerotic change origin of left vertebral artery tight stenosis. Superior to the origin the left vertebral artery enhances normally. Normal enhancement of internal carotid arteries and right vertebral arteries. Chest x-ray as per my interpretation minimal congestion, cardiomegaly EKG as per my interpretation : Rate 100, paced rhythm
--- NOTE | 2019-12-18 06:38 | XRay Report ---
XR chest 1V portable CLINICAL HISTORY: renal failure COMPARISON STUDY: 06/30/2019 FINDINGS: The heart is enlarged. There is pulmonary venous hypertension. There is a left subclavian p acer/defibrillator. There are no significant pleural effusions. There is no focal pulmonary consolida tion.[ IMPRESSION: Cardiomegaly and radiographic evidence of pulmonary venous hypertension ACT 112: Negative or not required by law. Electronically signed by: Indra Aguilar M.D. 12/18/2019 6:37 AM
--- NOTE | 2019-12-18 06:42 | CT Scan Report ---
CT head/brain wo con CLINICAL HISTORY: Stroke evaluation COMPARISON STUDY: 06/30/2019 TECHNIQUE: Axial CT of the brain is performed from the vertex to the skull base. IV contrast was not administered for this examination. A dose lowering technique was utilized adhering to the principles of ALARA. CT DOSE: FINDINGS: No intra or extra-axial mass lesions are visualized. There is no CT evidence of acute cortical infarc tion. There is no evidence of midline shift. There is no acute hemorrhage. No calvarial fractures ar e visualized. There are patchy white matter hypodensities likely on a small vessel basis. There is no evidence of pathologic ventricular dilatation. There is no evidence of acute sinusitis There are persistent calcifications in the region of distal vertebral arteries, as well as a calcific ation within the distal left vertebral/basilar artery. IMPRESSION: No acute intracranial findings ACT 112: Negative or not required by law. Electronically signed by: Indra Aguilar M.D. 12/18/2019 6:41 AM
[2019-12-18] MEDS ORDERED: GLUCAGON FOR INJ 1 MG VIAL SQ PRN (06:53)
[2019-12-18] MEDS ORDERED: CARBOHYDRATES FOR HYPOGLYCEMIA PO PRN (06:53)
[2019-12-18] MEDS ORDERED: PHARMACIST DISCHARGE MED REC CONSULT PRN (06:53)
[2019-12-18] MEDS ORDERED: HYDROmorphone INJ 0.5 MG/0.5 ML SYR IV PRN (06:53)
[2019-12-18] MEDS ORDERED: DEXTROSE 50% 50 ML SYRINGE IV PRN (06:53)
[2019-12-18] MEDS ORDERED: PROMETHAZINE HCL 12.5 MG in SODIUM CHLORIDE 0.9% 50 ML IV PRN (06:53)
[2019-12-18] MEDS ORDERED: GLUCOSE 10 TABS/TUBE PO PRN (06:53)
[2019-12-18] MEDS ORDERED: GLUCOSE 40% GEL 15 GM TUBE PO PRN (06:53)
[2019-12-18] MEDS ORDERED: TRAMADOL HCL 50 MG TABLET PO PRN (06:53)
[2019-12-18] MEDS ORDERED: METOPROLOL SUCC 25MG EXT REL TAB PO SCH ×2 (07:10→09:00)
--- NOTE | 2019-12-18 07:31 | CT Scan Report ---
CT angio neck with con CLINICAL HISTORY: Stroke evaluation COMPARISON STUDY: No previous studies for comparison. TECHNIQUE: CT angiography was performed from the aortic arch to the skull base. MIP imaging was perfo rmed. The patient was scanned in a dynamic helical fashion during intravenous administration of 118 c c of Optiray 320. A dose lowering technique was utilized adhering to the principles of ALARA. CT DOSE: 1318.77 mGy.cm Technique: CT angiogram of the carotid and vertebral arteries was obtained using intravenous contrast and 3-D reconstruction. NASCET criteria was utilized. Findings: The right carotid revealed no evidence of aneurysm and no evidence of dissection. There is no evidenc e of hemodynamic significant stenosis. There is calcific plaque at the level the right carotid bulb The left carotid revealed no evidence of hemodynamic significant stenosis. There is no evidence of an eurysm. There is no evidence of dissection. There is calcific plaque at the level the left carotid bu lb There is calcific plaque at the origin of both vertebral arteries. A left vertebral artery origin chriss nosis is suspected. There are calcified plaques involving the distal vertebral arteries with a 75% st enosis of the distal right vertebral artery and a 40% stenosis of the distal left vertebral artery. IMPRESSION: 1. Atheromatous changes the level of both carotid bulbs without evidence of hemodynamically significa nt internal carotid artery stenosis 2. Calcified plaque at the level the vertebral origins with a probable left vertebral artery origin s tenosis. 3. 75% stenosis of distal right vertebral artery and 40% stenosis the distal left vertebral artery. ACT 112: Negative or not required by law. Electronically signed by: Indra Aguilar M.D. 12/18/2019 7:30 AM
--- NOTE | 2019-12-18 07:34 | CT Scan Report ---
CT angio head w con CLINICAL HISTORY: Stroke evaluation TECHNIQUE: CT angiography of the head was performed in a dynamic helical fashion during intravenous a dministration of 118 cc of Optiray 320. MIP imaging was performed. A dose lowering technique was util ized adhering to the principles of ALARA. CT DOSE: COMPARISON STUDY: No previous studies for comparison. FINDINGS: There are no lesion suspicious for aneurysm. There are no major intracranial branch occlusi ons. The dural venous sinuses appear patent. There is a distal right vertebral artery stenosis. IMPRESSION: 1. Distal right vertebral artery stenosis 2. No evidence of major intracranial branch occlusion 3. No evidence of aneurysm ACT 112: Negative or not required by law. Electronically signed by: Indra Aguilar M.D. 12/18/2019 7:33 AM
[2019-12-18] MEDS: PANTOprazole 40 MG TAB PO SCH (08:04)
[2019-12-18] MEDS: ASPIRIN 81 MG ECTAB PO SCH (08:04)
[2019-12-18] MEDS: GABAPENTIN 100 MG CAP PO SCH ×3 (08:04→17:28)
[2019-12-18] MEDS: INSULIN ASPART 100 UNITS/ML 3 ML PEN SC SCH ×4 (08:06→20:22)
[2019-12-18] MEDS ORDERED: PHARMACY GLYCEMIC MGMT CONSULT PRN (10:20)
--- NOTE | 2019-12-18 10:22 | Hospitalist Progress Note ---
Date of Service December 18, 2019 Assessment & Plan (1) Aphasia: Expressive aphasia Possible related to acute CVA CT head showed no acute intracranial abnormality CTA head showed no evidence of major intracranial branch occlusion. No evidence of aneurysm CTA neck showed 75% stenosis of distal right vertebral artery and 40% stenosis the distal left vertebral artery. INR on admission subtherapeutic due to coumadin was recently on hold for outpatient EGD few days ago Neuro consult Coumadin, aspirin and statin resumed Unable to get an MRI due to pacemaker discussed about IV heparin with neuro, will hold that due to risk of bleeding and since his INR might be therapeutic soon, ok to do subq heparin for now Will repeat the CT head in 24hrs will discuss with neuro to consider changing aspirin to Plavix ECHO pending Will get pacemaker interrogation Continue neuro check Continue monitor closely in tele Continue speech and PT/OT therapy Chronic Elevated troponin Seems to be related to CKD Troponin on admission 0.055-->then 0.057 denies any chest pain Follow up echo Continue Metoprolol, statin and aspirin Hypertension Will allow permissive HTn Continue metoprolol Lisinopril on hold Continue monitor BP Paroxysmal Afib Received digoxin x1 On 100mg toprol BID, but only received 25mg this morning Will give additional dose toprol now, then resume his outpatient dose Will resume isosorbide dinitrate in am On coumadin with INR 1.5 today Continue aspirin S/P Pacemaker S/P biventricular pacemaker and defibrillator implantation in 06/2017. Will do pacemaker interrogation Diabetes. Recent Hba1c 9.8 on 07/01/19 BS elevated Will check Hba1c in am On insulin sliding scale. Pharmacy on board for glycemic management Continue monitor BS . Obstructive sleep apnea. Use oxygen in the nighttime. Chronic obstructive pulmonary disease Continue his home inhalers, Currently stable. Chronic systolic and diastolic congestive heart failure S/P biventricular pacemaker and defibrillator implantation in 06/2017. Will resume Torsemide in am Continue Toprol-XL Will resume isosorbide nitrate in am after reviewing outpatient meds in [facility] Chronic kidney disease stage IV. Baseline creatinine 2.6 to 3, present Creatinine stable DVT px on Coumadin with INR 1.5 Will add heparin subq for now until INR therapeutic Code status Full code Patient's requesting updates for providers. Ms. Lina Delarosa (contact numbers [phone], [phone]) Admission and Anticipated Discharge Date Admission Date: December 18, 2019 Subjective Pt was seen and examined Lying in bed with no distress Pt is getting frustrated because he is having problem to express himself He said that he is having a hard time to formulate the words He said that his thought process his off now He denies any other symptoms such as chest pain, palpitation, dizziness and SOB Physical Exam Physical Exam: General- No acute distress Head- atraumatic Eyes- PERRL, EOMI, ENT- oropharynx clear Neck- supple, no JVD Lungs- clear to auscultation Heart- +murmur Abdomen- normal bowel sounds, soft, nontender Extremities- no calf tenderness, +trace edema Neuro- alert, oriented x 3; PERRL, EOMI; no facial palsy, expressive aphasia Skin- warm & dry Results & Data Results & Data ([facility]) Vital Signs (Past 12 Hours) Vital Signs Temp Pulse Pulse Resp BP BP BP 12/18/19 08:18 98 H 12/18/19 07:31 36.6 C 98 H 18 151/82 H 12/18/19 06:49 36.7 C 93 H 22 162/95 H 12/18/19 06:15 93 H 22 156/105 H 12/18/19 06:00 91 H 22 160/105 H 12/18/19 05:45 93 H 22 154/108 H 12/18/19 05:30 90 22 176/115 H 12/18/19 05:15 104 H 22 176/121 H 12/18/19 05:00 91 H 20 164/111 H 12/18/19 04:45 85 20 173/115 H 12/18/19 04:29 92 H 24 156/103 H 12/18/19 04:14 36.7 C 92 H 21 167/103 H Pulse Ox 12/18/19 08:18 12/18/19 07:31 95 12/18/19 06:49 93 12/18/19 06:15 95 12/18/19 06:00 94 12/18/19 05:45 97 12/18/19 05:30 93 12/18/19 05:15 94 12/18/19 05:00 93 12/18/19 04:45 96 12/18/19 04:29 94 12/18/19 04:14
--- NOTE | 2019-12-18 10:25 | Electrocardiogram Report ---
Test Reason : Blood Pressure : / mmHG Vent. Rate : 097 BPM Atrial Rate : 088 BPM P-R Int : 000 ms QRS Dur : 170 ms QT Int : 442 ms P-R-T Axes : 000 -54 118 degrees QTc Int : 561 ms Normal sinus rhythm Ventricular-paced rhythm and [place] QRS cpmplexes with a LBBB morphology Biventricular pacemaker detected Abnormal ECG When compared with ECG of 30-JUN-2019 20:26, Vent. rate has increased BY 23 BPM Normal sinus rhythm has replaced an atrial paced rhythm Confirmed by Dixon Castro ([id number]) on 12/18/2019 10:25:28 AM Referred By: REFERRED SELF Confirmed By:Dixon Castro
--- NOTE | 2019-12-18 10:29 | Pharmacy Report ---
Pharmacy Glycemic Short Note 2 - Date of Service December 18, 2019 - Glycemic Short BSG Results (Last 24 hours): 12/18/19 12/18/19 12/18/19 04:02 04:31 08:05 Glucose 348 H* POC Glucose 365 H* 290 H OUTPATIENT ANTIDIABETIC REGIMEN: * Lantus 70 units SQ daily * Lispro with meals: 5 units/20 units/26 units/14 units at HS if high carb snack * A1c = 10.6% (11/2019) ASSESSMENT: * Patient admitted with aphasia with concern for embolic CVA, HTN, and hyperglycemia * He is well known to the Pharmacy Glycemic service. During his June 2019 admission he required 97-99 units of insulin per day (~40 units of basal) * He has already received 40 units of Lantus this morning. I will continue this for now. May need to back off on subsequent days. * Tighten Novolog coverage based on needs from previous admission. PLAN FOR INPATIENT GLYCEMIC CONTROL: * Hold outpatient oral diabetes medications * Basal insulin * Lantus 40 units SQ qAM * Bolus insulin * NovoLog per scale ACHS or Q6hrs while NPO * Goal Range: Low 120 mg/dL - High 150 mg/dL * Correction Factor: 15 mg/dL/unit * Nutritional / Prandial insulin per carb ratio of 1 unit per 5 grams CHO consumed
[2019-12-18] MEDS ORDERED: METOPROLOL SUCC 25MG EXT REL TAB PO ONE (11:32)
[2019-12-18 11:41] LABS: Appearance Urine Clear (Clear); Bacteria Urine Automated 2+ (Negative); Bilirubin Urine Negative (Negative); Blood Urine Negative (Negative); Cast Urine Automated 0 /lpf (0-5); Color Urine Yellow; Glucose Urine UA 3+ (Negative); Ketones Urine Negative (Negative); Leukocyte Esterase Urine Negative (Negative); Nitrite Urine Negative (Negative); Protein Urine 3+ (Negative); Specific Gravity Urine 1.027 (1.000-1.030); Urobilinogen Urine Negative (Negative); pH Urine 6.5 (4.5-7.5)
--- NOTE | 2019-12-18 13:17 | Consultation Report ---
DATE OF CONSULTATION: 12/18/2019 REASON FOR CONSULTATION: Stroke. The history is obtained both from the patient and the medical record as the patient has significant language dysfunction. The patient has a history of chronic diastolic heart failure secondary to nonischemic cardiomyopathy, status post ICD, chronic left bundle branch block, nonocclusive coronary artery disease and peripheral vascular disease, atrial fibrillation on Coumadin, VHD, hypertension, COPD, obstructive sleep apnea, diabetes type 2, chronic renal insufficiency, chronic anemia, chronic thrombocytopenia and past history of tobacco abuse, recent confinement in 06/2019 for hypertensive urgency. The patient underwent an outpatient EGD at [facility] 3 days ago for workup of pancreatitis of unknown etiology, following hospitalization at [facility]; gastritis was found. No significant pancreatic pathology was noted. Coumadin was stopped for few days prior to procedure and resumed postprocedure. At 9:00 p.m. in the evening prior to admission, the [place] when it was noted to have trouble finding the right word. This became more noticed as the evening went on. No focal weakness or facial asymmetry was noted. The patient indicates that he had no headache. No difficulty with swallowing and that symptoms are somewhat better. The patient was seen by [facility] [place]. ALLERGIES: None. HOME MEDICATIONS: Lantus, aspirin 81, vitamin D3, isosorbide dinitrate, metoprolol, Protonix, Crestor, gabapentin, albuterol, fluticasone, warfarin, , insulin lispro, lisinopril, Advair Diskus, hydralazine and torsemide. PAST MEDICAL HISTORY: Aortic stenosis, asthma, AFib, coronary artery disease, anemia, diabetic neuropathy, reflux, hypertension, left bundle branch block, nocturnal hypoxemia, thrombocytopenia. PAST SURGICAL HISTORY: Cardiac cath, placement of a cardiac defibrillator and pacemaker. FAMILY HISTORY: Diabetes, hypertension, lung cancer. No family history of stroke. SOCIAL HISTORY: Remote smoker. The patient does not drink alcohol and is retired from [employer]. IMAGING: CT of the head shows no acute abnormality, although there is a relative hypodensity in the right frontal region. CTA of the head and neck show atheromatous plaque in both carotid bulbs, calcified plaque at the level of vertebral origin with probable left vertebral artery origin stenosis, 75% stenosis of the right vertebral artery and 40% stenosis of the left vertebral artery. PERTINENT LABORATORY: Included an H and H of 11.8/37.1, platelet count 107. INR 1.5 and creatinine 2.97, glucose 348. Transaminases normal. Troponin positive. Lipids not yet done. Urinalysis notable for 3+ protein, 3+ glucose, 2+ bacteria. REVIEW OF SYSTEMS: Notable for the patient not feeling well recently, although has not been able to give a true symptoms, he may feel that he has some minor sore throat. No chest pain, palpitation, shortness of breath, fever, chills, sweats or weight loss.Detailed ROS felt to be unobtainable secondary to aphasia PHYSICAL EXAMINATION: VITAL SIGNS: On admission, blood pressure was 156/103, currently 148/94, 36.5, pulse 107, respirations 20, pulse ox 98%. GENERAL: The patient is awake and alert. He is oriented to person. He is able to pick location by given choices, but otherwise cannot spontaneously do so. He has difficulty with word finding, repetitions. He followed a 2/3-step commands. He is normocephalic, atraumatic. I do not appreciate any carotid bruits. HEART: Appeared to be regular. No murmur rubs or gallops Dorsalis pedis pulses intact. No calf asymmetry is noted. NEUROLOGIC: Pupils are equal. Motility is normal. There are normal pedersen. Facial sensation and facial symmetry. Speech is as above. Naming is intact for several minor objects. Motor: There is mild weakness of the right triceps. There is no drift and there are equal rapid alternating movements. Lower extremities are full. Reflexes symmetric. Toes are downgoing. [id number] and [id number] are normal. Sensation is intact to light touch. There is no distal sensory loss to temperature. IMPRESSION: Presumed left middle cerebral artery cortical embolic infarct related to subtherapeutic INR. PLAN: Followup CT of the head noncontrast in the morning r/o hemorrhage, mass effect. Continue aspirin at present. Continue Coumadin with a goal of being therapeutic with an INR of 2-3. Continued risk factor modification including good control of diabetes. Permissive hypertensionCheck LDL with a goal LDL of 70 or less. Vertebral artery stenosis, asymptomatic, We will follow with you. NICOLE
[2019-12-18] MEDS: HEPARIN SOD 5,000 UNIT/0.5 ML VIAL SQ SCH ×2 (15:13→20:25)
[2019-12-18] MEDS ORDERED: XOPENEX/ATROVENT 0.63mg/0.5MG NEB COMBO NEB PRN (17:57)
[2019-12-18] MEDS: IPRATROPIUM BROMIDE NEB SOLN 0.02% 2.5 ML VIAL INH PRN (18:14)
[2019-12-18] MEDS: LEVALBUTEROL HCL 0.63 MG/3 ML NEB NEB PRN (18:14)
[2019-12-18] MEDS: ROSUVASTATIN CALCIUM 20 MG TAB PO SCH (20:25)
[2019-12-18] MEDS: METOPROLOL SUCC 50MG EXT REL TAB PO SCH (20:25)
[2019-12-18] MEDS ORDERED: INSULIN GLARGINE SOLOSTAR 100 UNITS/ML 3 ML PEN SQ SCH (21:00)
[2019-12-19] MEDS: HEPARIN SOD 5,000 UNIT/0.5 ML VIAL SQ SCH ×3 (04:59→20:49)
[2019-12-19 05:56] LABS: Estimated Average Glucose 269 mg/dl
[2019-12-19 07:13] LABS: Basophils # (auto) 0.01 K/uL (0-0.2); Basophils % (auto) 0.1 %; Eosinophils # (auto) 0.09 K/uL (0-0.5); Eosinophils % (auto) 1.3 %; Hematocrit (blood only) 37.4 % (42-52); Hemoglobin 11.2 g/dL (14.0-18.0); Immature Granulocytes # (auto) 0.01 K/uL (0.00-0.02); Immature Granulocytes % (auto) 0.1 %; Lymphocytes # (auto) 0.64 K/uL (1.2-3.4); Lymphocytes % (auto) 9.4 %; Mean Corpuscular Hemoglobin 25.5 pg (25-34); Mean Corpuscular Hgb Conc 29.9 g/dL (32-36); Mean Corpuscular Volume 85.2 fL (80-100); Mean Platelet Volume 9.7 fL (7.4-10.4); Monocytes # (auto) 0.43 K/uL (0.11-0.59); Monocytes % (auto) 6.3 %; Neutrophils # (auto) 5.61 K/uL (1.4-6.5); Neutrophils % (auto) 82.8 %; Platelet Count 109 K/uL (130-400); RDW Coefficient of Variation 15.2 % (11.5-14.5); RDW Standard Deviation 47.5 fL (36.4-46.3); Red Blood Count 4.39 M/uL (4.7-6.1); White Blood Count 6.79 K/uL (4.8-10.8)
[2019-12-19 07:24] LABS: INR 1.7 (0.9-1.1)
[2019-12-19 07:46] LABS: BUN Creatinine Ratio 16.4 (10-20); Calcium 9.1 mg/dl (8.5-10.1); Creatinine Clr Calc Pharmacy 33.7 ml/min; Est GFR (African American) 26.6; Est GFR (Non-African American) 22.9; Potassium 4.2 mmol/L (3.5-5.1)
--- NOTE | 2019-12-19 07:59 | CT Scan Report ---
CT head/brain wo con CLINICAL HISTORY: Stroke. Follow-up study COMPARISON STUDY: No previous studies for comparison. TECHNIQUE: Axial CT of the brain is performed from the vertex to the skull base. IV contrast was not administered for this examination. A dose lowering technique was utilized adhering to the principles of ALARA. CT DOSE: 601.98 mGy.cm FINDINGS: No intra or extra-axial mass lesions are visualized. There is no CT evidence of acute cortical infarc tion. There is no evidence of midline shift. There is no acute hemorrhage. No calvarial fractures ar e visualized. There are patchy white matter hypodensities likely on a small vessel basis. There is no evidence of pathologic ventricular dilatation. There is no evidence of acute sinusitis IMPRESSION: No acute intracranial findings ACT 112: Negative or not required by law. Electronically signed by: Indra Aguilar M.D. 12/19/2019 7:58 AM
[2019-12-19] MEDS: METOPROLOL SUCC 50MG EXT REL TAB PO SCH ×2 (08:22→20:48)
[2019-12-19] MEDS: GABAPENTIN 100 MG CAP PO SCH ×3 (08:22→17:20)
[2019-12-19] MEDS: PANTOprazole 40 MG TAB PO SCH (08:23)
[2019-12-19] MEDS: ASPIRIN 81 MG ECTAB PO SCH (08:23)
--- NOTE | 2019-12-19 08:24 | Cardiology Consultation ---
Date of Consultation December 19, 2019 Assessment & Plan (1) Acute CVA (cerebrovascular accident): (2) Aphasia: (3) PAF (paroxysmal atrial fibrillation): (4) CKD (chronic kidney disease): (5) Chronic systolic (congestive) heart failure: This patient may have had a TIA that is not evident on the CT of the brain. He is at risk for embolic events due to his history of heart failure and paroxysmal atrial fibrillation. I do not believe any additional cardiac testing is indicated. I would recommend that he be restarted back on his anticoagulation and if he has any additional procedures in the future he would be a candidate for a Lovenox bridge. History of Present Illness Attending Physician: Barbara Suarez MD History of Present Illness This is a 64-year-old male patient with the cardiac history as outlined below. Recently he underwent endoscopy and in preparation for that study his anticoagulation was held. Several days later the patient had difficulty with word forming and a headache. He was admitted with strokelike symptoms. Initial neurology consult indicates possible middle cerebral artery infarct. His CAT scans of the brain however, showed no acute ischemic events. He is alert and oriented today. He has been walking in the hallway. It seems that his word forming difficulties have completely resolved and he feels well. Past cardiac history: 1.Nonischemic cardiomyopathy with moderately severe LV dysfunction, last ejection fraction 45-50 % July 2018 2.Compensated class III congestive heart failure, systolic and diastolic. 3.Moderate atherosclerotic coronary disease without obstruction by last cardiac catheterization June 2016. 4.Calcific aortic valve disease with borderline severe aortic stenosis. 5.History of biventricular pacer defibrillator implantation June 2017. [id number] 6.Chronic, severe renal insufficiency stage 4, GFR 20 7.Chronic anemia. 8. Paroxysmal atrial fibrillation now persistent Allergies Allergy/AdvReac Type Severity Reaction Status Date / Time No Known Allergies Allergy Verified 12/18/19 04:29 Home Medications Home Medications Medication Instructions Recorded Confirmed Type Lantus Solostar U-100 Insulin 70 units SUBCUT DAILY 02/05/18 12/18/19 History aspirin 81 mg PO DAILY 02/05/18 12/18/19 History cholecalciferol (vitamin D3) 2,000 unit PO DAILY 02/05/18 12/18/19 History [Vitamin D3] isosorbide dinitrate 30 mg PO TIDM 02/05/18 12/18/19 History metoprolol succinate [Toprol XL] 100 mg PO BID 02/05/18 12/18/19 History pantoprazole [Protonix] 40 mg PO DAILY 02/05/18 12/18/19 History rosuvastatin [Crestor] 40 mg PO HS 02/05/18 12/18/19 History gabapentin 100 mg PO TIDM 05/14/18 12/18/19 History albuterol sulfate [ProAir HFA] 2 puff INHALATION Q4H PRN 08/01/18 12/18/19 History fluticasone propionate [Flonase 2 spray INTRANASAL DAILY PRN 08/01/18 12/18/19 History Allergy Relief] ipratropium-albuterol 3 ml INHALATION QID PRN 08/01/18 12/18/19 History warfarin See Rx Instructions .ROUTE .COMPLEX 10/03/18 12/18/19 History Vitron-C 1 tab PO BID 06/05/19 12/18/19 History insulin lispro [Humalog KwikPen See Rx Instructions .ROUTE .COMPLEX 06/05/19 12/18/19 History Insulin] lisinopril 5 mg PO DAILY 06/05/19 12/18/19 History fluticasone propion-salmeterol 1 inh INHALATION BID 12/18/19 12/18/19 History [Advair Diskus] hydralazine 75 mg PO TID 12/18/19 12/18/19 History torsemide 10 mg PO [id number] 12/18/19 12/18/19 History Patient History Medical History Aortic stenosis Asthma Atrial fibrillation on chronic anticoagulation CAD (coronary artery disease) "nonobstructive" Chronic anemia Chronic systolic (congestive) heart failure Diabetic neuropathy DM type 2 (diabetes mellitus, type 2) Dyslipidemia GERD (gastroesophageal reflux disease) Hypertension LBBB (left bundle branch block) Nocturnal hypoxia on 2L NC O2 HS Thrombocytopenia Surgical History H/O cardiac catheterization Non nonobstructive CAD on 2017 cardiac cath Presence of combination internal cardiac defibrillator (ICD) and pacemaker Family History Other Diabetes Hypertension Lung cancer Social History Smoking Status: Never smoker Tobacco Type: Smokeless Tobacco (Dip or Chew) Second Hand Exposure: No; Do You Dip or Chew Tobacco: Yes; Hx Alcohol Use: No Hx Substance Use: No Preferred Language: Kyrgyz Communication Ability: Impaired Visual Impairment: Limited Nuclear Criticality Safety Engineer Required: No Beliefs That Will Affect Care: None marital status: Current Living Situation: Spouse current occupational status: retired 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 Other Information That Helps Us Care for You: No Feels Safe at Home: Yes Safety Concerns: Feels Safe At This Time Review of Systems Review of Systems: All systems reviewed & are unremarkable except as noted in HPI & below Nothing additional to add Physical Exam Physical Exam: General: no acute distress and stated age Head: normocephalic, no masses, lesions, tenderness or abnormalities Eyes: conjunctiva are pink and non-injected, sclera clear Neck: supple, no adenopathy, no bruits, normal jugular venous pulse, no hepatojugular reflux Chest: normal shape and normal respiratory effort Lungs: clear to auscultation and percussion Cardiac Exam: - regular rate & rhythm, no murmurs gallops or rubs - normal S1, normal S2 Pulses: 2(+) throughout Abdomen: abdomen soft, non-tender, no abnormal masses and no hepatosplenomegaly Musculoskeletal: no gait disturbance, no joint inflammation, no deforming arthritis Extremities: no edema and no cyanosis Neuro: grossly normal exam Results & Data ([facility]) Vital Signs (Past 12 Hours) Vital Signs Temp Pulse Pulse Resp BP BP Pulse Ox 12/19/19 07:14 37 C 83 18 138/87 100 12/19/19 03:08 36.8 C 74 20 121/73 98 12/19/19 01:22 84 12/18/19 22:44 36.4 C L 82 19 145/79 H 97 12/18/19 21:49 83 18 97 Laboratory Results Laboratory Results - last 24 hr 12/18/19 12/18/19 12/18/19 04:31 04:31 16:45 WBC RBC Hgb Hct MCV MCH MCHC RDW Std Deviation RDW Coeff of Joey Plt Count MPV Immature Gran % (Auto) Neut % (Auto) Lymph % (Auto) Beaver % (Auto) Eos % (Auto) Baso % (Auto) Neut # (Auto) Lymph # (Auto) Beaver # (Auto) Eos # (Auto) Baso # (Auto) Immature Gran # (Auto) PT INR Sodium Potassium Chloride Carbon Dioxide Anion Gap BUN Creatinine Est Cr Clr Drug Dosing Est GFR ( Amer) Est GFR (Non-Af Amer) BUN/Creatinine Ratio Glucose POC Glucose 115 H Estimat Average Glucose 269 Hemoglobin A1c 11.0 H Calcium Troponin I Triglycerides Cholesterol LDL Cholesterol, Calc VLDL Cholesterol, Calc HDL Cholesterol Cholesterol/HDL Ratio Hepatitis C Ab Screen Neg 12/18/19 12/18/19 12/19/19 18:48 20:11 06:49 WBC 6.79 RBC 4.39 L Hgb 11.2 L Hct 37.4 L MCV 85.2 MCH 25.5 MCHC 29.9 L RDW Std Deviation 47.5 H RDW Coeff of Joey 15.2 H Plt Count 109 L MPV 9.7 Immature Gran % (Auto) 0.1 Neut % (Auto) 82.8 Lymph % (Auto) 9.4 Beaver % (Auto) 6.3 Eos % (Auto) 1.3 Baso % (Auto) 0.1 Neut # (Auto) 5.61 Lymph # (Auto) 0.64 L Beaver # (Auto) 0.43 Eos # (Auto) 0.09 Baso # (Auto) 0.01 Immature Gran # (Auto) 0.01 PT INR Sodium Potassium Chloride Carbon Dioxide Anion Gap BUN Creatinine Est Cr Clr Drug Dosing Est GFR ( Amer) Est GFR (Non-Af Amer) BUN/Creatinine Ratio Glucose POC Glucose 144 H Estimat Average Glucose Hemoglobin A1c Calcium Troponin I 0.070 H* Triglycerides Cholesterol LDL Cholesterol, Calc VLDL Cholesterol, Calc HDL Cholesterol Cholesterol/HDL Ratio Hepatitis C Ab Screen 12/19/19 12/19/19 12/19/19 06:49 06:49 06:49 WBC RBC Hgb Hct MCV MCH MCHC RDW Std Deviation RDW Coeff of Joey Plt Count MPV Immature Gran % (Auto) Neut % (Auto) Lymph % (Auto) Beaver % (Auto) Eos % (Auto) Baso % (Auto) Neut # (Auto) Lymph # (Auto) Beaver # (Auto) Eos # (Auto) Baso # (Auto) Immature Gran # (Auto) PT 17.0 H INR 1.7 H Sodium 140 Potassium 4.2 Chloride 106 Carbon Dioxide 27 Anion Gap 7.0 BUN 46 H Creatinine 2.77 H Est Cr Clr Drug Dosing 33.7 Est GFR ( Amer) 26.6 Est GFR (Non-Af Amer) 22.9 BUN/Creatinine Ratio 16.4 Glucose 107 H POC Glucose Estimat Average Glucose Hemoglobin A1c Calcium 9.1 Troponin I 0.062 H* Triglycerides 77 Cholesterol 93 LDL Cholesterol, Calc 45 VLDL Cholesterol, Calc 15 HDL Cholesterol 33 Cholesterol/HDL Ratio 3 Hepatitis C Ab Screen 12/19/19 12/19/19 07:31 11:38 WBC RBC Hgb Hct MCV MCH MCHC RDW Std Deviation RDW Coeff of Joey Plt Count MPV Immature Gran % (Auto) Neut % (Auto) Lymph % (Auto) Beaver % (Auto) Eos % (Auto) Baso % (Auto) Neut # (Auto) Lymph # (Auto) Beaver # (Auto) Eos # (Auto) Baso # (Auto) Immature Gran # (Auto) PT INR Sodium Potassium Chloride Carbon Dioxide Anion Gap BUN Creatinine Est Cr Clr Drug Dosing Est GFR ( Amer) Est GFR (Non-Af Amer) BUN/Creatinine Ratio Glucose POC Glucose 114 H 157 H Estimat Average Glucose Hemoglobin A1c Calcium Troponin I Triglycerides Cholesterol LDL Cholesterol, Calc VLDL Cholesterol, Calc HDL Cholesterol Cholesterol/HDL Ratio Hepatitis C Ab Screen Medications Administered Current Inpatient Medications Aspirin (Aspirin 81 Mg Ectab) 81 mg PO DAILY [facility] Stop: 01/17/20 08:59 Last Admin: 12/19/19 08:23 Dose: 81 mg Documented by: Dextrose (Dextrose 50% 50 Ml Syringe) 25 - 50 ml IV UD PRN; Protocol PRN Reason: Hypoglycemia Protocol Stop: 01/17/20 06:52 Gabapentin (Gabapentin 100 Mg Cap) 100 mg PO TIDM [facility] Stop: 01/17/20 07:59 Last Admin: 12/19/19 08:22 Dose: 100 mg Documented by: Glucagon (Glucagon For Inj 1 Mg Vial) 1 mg SQ UD PRN; Protocol PRN Reason: Hypoglycemia Protocol Stop: 01/17/20 06:52 Glucose (Glucose 10 Tabs/Tube) 4 - 8 tabs PO UD PRN; Protocol PRN Reason: Hypoglycemia Protocol Stop: 01/17/20 06:52 Glucose (Glucose 40% Gel 15 Gm Tube) 15 - 30 gm PO UD PRN; Protocol PRN Reason: Hypoglycemia Protocol Stop: 01/17/20 06:52 Heparin Sodium (Porcine) (Heparin Sod 5,000 Unit/0.5 Ml Vial) 5,000 units SQ Q8 [facility] Stop: 01/17/20 13:59 Last Admin: 12/19/19 04:59 Dose: 5,000 units Documented by: Hydromorphone HCl (Hydromorphone Inj 0.5 Mg/0.5 Ml Syr) 0.25 mg IV Q3H PRN PRN Reason: Pain Stop: 01/01/20 06:52 Promethazine HCl 12.5 mg/ (Sodium Chloride) 50.5 mls @ 202 mls/hr IV Q6H PRN PRN Reason: Nausea And Vomiting Stop: 01/17/20 06:52 Insulin Aspart (Insulin Aspart 100 Units/Ml 3 Ml Pen) 0 units SC ACHS [facility] Stop: 01/17/20 07:29 Last Admin: 12/19/19 08:31 Dose: 5 units Documented by: Insulin Glargine (Insulin Glargine Solostar 100 Units/Ml 3 Ml Pen) 40 units SC DAILY [facility]; Protocol Stop: 01/18/20 08:59 Last Admin: 12/19/19 10:11 Dose: 40 units Documented by: Ipratropium [place] (Ipratropium [place] Neb Soln 0.02% 2.5 Ml Vial) 0.5 mg INH Q6R PRN PRN Reason: sob/wheezing Stop: 01/17/20 17:59 Last Admin: 12/18/19 18:14 Dose: 0.5 mg Documented by: Levalbuterol HCl (Levalbuterol Hcl 0.63 Mg/3 Ml Neb) 0.63 mg NEB Q6R PRN PRN Reason: sob/wheezing Stop: 01/17/20 17:59 Last Admin: 12/18/19 18:14 Dose: 0.63 mg Documented by: Metoprolol Succinate (Metoprolol Succ 50mg Ext Rel Tab) 100 mg PO BID [facility] Stop: 01/17/20 20:59 Last Admin: 12/19/19 08:22 Dose: 100 mg Documented by: Miscellaneous (Carbohydrates For Hypoglycemia ) 15 - 30 gm PO UD PRN PRN Reason: Hypoglycemia Protocol Stop: 01/17/20 06:52 Miscellaneous Information (Pharmacist Discharge Med Rec Consult) 1 ea N/A UD PRN PRN Reason: Consult Stop: 01/17/20 06:52 Miscellaneous Information (Pharmacy Glycemic Mgmt Consult) 1 ea N/A UD PRN PRN Reason: Consult Stop: 01/17/20 10:19 Pantoprazole Sodium (Pantoprazole 40 Mg Tab) 40 mg PO DAILY [facility] Stop: 01/17/20 08:59 Last Admin: 12/19/19 08:23 Dose: 40 mg Documented by: Rosuvastatin Calcium (Rosuvastatin Calcium 20 Mg Tab) 40 mg PO HS [facility] Stop: 01/17/20 20:59 Last Admin: 12/18/19 20:25 Dose: 40 mg Documented by: Tramadol HCl (Tramadol Hcl 50 Mg Tablet) 25 - 50 mg PO Q4H PRN PRN Reason: Pain Stop: 01/17/20 06:52 Warfarin Sodium (Warfarin Sod 5 Mg Tab) 5 mg PO DAILY@1600 [facility] Stop: 01/18/20 15:59 (1) CKD (chronic kidney disease) Chronic kidney disease stage: unspecified stage Qualified Code(s): N18.9 - Chronic kidney disease, unspecified
[2019-12-19] MEDS: INSULIN ASPART 100 UNITS/ML 3 ML PEN SC SCH ×4 (08:31→20:48)
--- NOTE | 2019-12-19 08:34 | CT Scan Report ---
CT head/brain wo con CLINICAL HISTORY: Stroke. Achalasia. Evaluate for hemorrhage. COMPARISON STUDY: 12/18/2019 TECHNIQUE: Axial CT of the brain is performed from the vertex to the skull base. IV contrast was not administered for this examination. A dose lowering technique was utilized adhering to the principles of ALARA. CT DOSE: 614.27 mGy.cm FINDINGS: No intra or extra-axial mass lesions are visualized. There is no CT evidence of acute cortical infarc tion. There is no evidence of midline shift. There is no acute hemorrhage. No calvarial fractures ar e visualized. There are patchy white matter hypodensities likely on a small vessel basis. There is no evidence of pathologic ventricular dilatation. There is no evidence of acute sinusitis IMPRESSION: No acute intracranial findings ACT 112: Negative or not required by law. Electronically signed by: Indra Aguilar M.D. 12/19/2019 8:33 AM
[2019-12-19] MEDS ORDERED: INSULIN GLARGINE SOLOSTAR 100 UNITS/ML 3 ML PEN SC SCH (09:00)
--- NOTE | 2019-12-19 09:11 | Pharmacy Report ---
Pharmacy Glycemic Short Note 2 - Date of Service December 19, 2019 - Glycemic Short BSG Results (Last 24 hours): 12/18/19 12/18/19 12/18/19 11:24 16:45 20:11 Glucose POC Glucose 229 H 115 H 144 H 12/19/19 12/19/19 06:49 07:31 Glucose 107 H POC Glucose 114 H OUTPATIENT ANTIDIABETIC REGIMEN: * Lantus 70 units SQ daily * Lispro with meals: 5 units/20 units/26 units/14 units at HS if high carb snack * A1c = 10.6% (11/2019) ASSESSMENT: * Patient admitted with aphasia with concern for embolic CVA, HTN, and hyperglycemia * He is well known to the Pharmacy Glycemic service. During his June 2019 admission he required 97-99 units of insulin per day (~40 units of basal) * Patient received 67 units of insulin yesterday * 40 units of basal, 27 units of prandial/correctional * BSGs of 290 (on admission), 229, 115, and 144 mg/dL * Fasting BSG of 114 mg/dL this morning * Anticipating no changes to currently ordered regimen PLAN FOR INPATIENT GLYCEMIC CONTROL: * Hold outpatient oral diabetes medications * Basal insulin * Lantus 40 units SQ qAM * Bolus insulin * NovoLog per scale ACHS or Q6hrs while NPO * Goal Range: Low 120 mg/dL - High 150 mg/dL * Correction Factor: 15 mg/dL/unit * Nutritional / Prandial insulin per carb ratio of 1 unit per 5 grams CHO consumed PLAN FOR DISCHARGE: * TBD - will follow insulin needs while inpatient
[2019-12-19] MEDS ORDERED: TORSEMIDE 10 MG TAB PO ONE (14:44)
--- NOTE | 2019-12-19 15:05 | Hospitalist Progress Note ---
Date of Service December 19, 2019 Assessment & Plan (1) Aphasia: Expressive aphasia Possible related to acute CVA CT head showed no acute intracranial abnormality CTA head showed no evidence of major intracranial branch occlusion. No evidence of aneurysm CTA neck showed 75% stenosis of distal right vertebral artery and 40% stenosis the distal left vertebral artery. INR on admission subtherapeutic due to coumadin was recently on hold for outpatient EGD few days ago Neuro consult Coumadin, aspirin and statin resumed Unable to get an MRI due to pacemaker Repeat CT head showed no acute intracranial abnormality Echo showed left ventricular is mildly dilated. There is moderate concentric left ventricular hypertrophy. Ejection fraction 30 to 35%. The interatrial septum is intact with no evidence for an atrial septal defect. discussed about IV heparin with neuro, will hold that due to risk of bleeding and since his INR might be therapeutic soon, ok to do subq heparin for now Case discussed with neuro that recommended to continue aspirin, coumadin and statin Pacemaker interrogation done on 12/17 Continue neuro check Continue speech and PT/OT therapy Chronic Elevated troponin Seems to be related to CKD Troponin on admission 0.055-->then peak to 0.070, then trending down to 0.062 Denies any chest pain Echo showed left ventricular is mildly dilated. There is moderate concentric left ventricular hypertrophy. Ejection fraction 30 to 35%. Cardiology on board and recommended no further cardiac testing at this time Continue Metoprolol, statin and aspirin Hypertension BP elevated Isosorbide dinitrate and torsemide resume Continue metoprolol Lisinopril will resume tomorrow Continue monitor BP Paroxysmal Afib Received digoxin x1 On 100mg toprol BID, but only received 25mg this morning Continue Metoprolol 100mg BID and isosorbide dinitrate On coumadin with INR 1.7 today cardiology recommended in the future if pt plans to have any procedure, he would need to be bridge with anticoagulant while coumadin on hold Continue aspirin S/P Pacemaker S/P biventricular pacemaker and defibrillator implantation in 06/2017. Pacemaker interrogation done Diabetes. Recent Hba1c 9.8 on 07/01/19 BS elevated Hba1c 11 on 12/18/19 On lantus and insulin sliding scale. Pharmacy on board for glycemic management Continue monitor BS . Vertebral artery stenosis CTA neck showed 75% stenosis of distal right vertebral artery and 40% stenosis the distal left vertebral artery. Continue aspirin, coumadin and statin Follow up outpatient Obstructive sleep apnea. Use oxygen in the nighttime. Chronic obstructive pulmonary disease Continue his home inhalers, Currently stable. Chronic systolic and diastolic congestive heart failure S/P biventricular pacemaker and defibrillator implantation in 06/2017. Continue Torsemide 10mg x5 weekly Continue Toprol-XL and isosorbide nitrate Chronic kidney disease stage IV. Baseline creatinine 2.6 to 3, present Creatinine stable DVT px on Coumadin with INR 1.7 On heparin subq for now until INR therapeutic Code status Full code Patient's requesting updates for providers. Ms. Lina Delarosa (contact numbers [phone], [phone]) Admission and Anticipated Discharge Date Admission Date: December 18, 2019 Subjective Pt was seen and examined Sitting in chair with no distress with at bedside Pt said that his speech improves He said that he was walking in the hallway Denies any chest pain, palpitation, dizziness and fever Physical Exam Physical Exam: General- No acute distress Head- atraumatic Eyes- PERRL, EOMI, ENT- oropharynx clear Neck- supple, no JVD Lungs- clear to auscultation Heart- +murmur Abdomen- normal bowel sounds, soft, nontender Extremities- no calf tenderness, +trace edema Neuro- alert, oriented x 3; PERRL, EOMI; no facial palsy, expressive aphasia Skin- warm & dry Results & Data Results & Data ([facility]) Vital Signs (Past 12 Hours) Vital Signs Temp Pulse Resp BP BP Pulse Ox 12/19/19 11:21 37 C 82 18 164/99 H 100 12/19/19 07:14 37 C 83 18 138/87 100 12/19/19 03:08 36.8 C 74 20 121/73 98
[2019-12-19] MEDS: FLUTICASONE/VILANTEROL 200/25MCG 14 PUFFS/INHALER INH SCH (15:55)
[2019-12-19] MEDS: ISOSORBIDE DINITRATE 10 MG TAB PO SCH (15:55)
[2019-12-19] MEDS: WARFARIN SOD 5 MG TAB PO SCH (17:20)
[2019-12-19] MEDS ORDERED: WARFARIN SOD 5 MG TAB PO ONE (17:35)
--- NOTE | 2019-12-19 18:15 | Progress Notes ---
DATE: 12/19/2019 SUBJECTIVE: I am seeing the patient in followup of sudden onset of aphasia in the setting of subtherapeutic INR. His followup CT of the head shows no acute infarction, although there are bilateral patchy hypodensities they do not appear to be any different than on admission. His INR today is 1.7. He has not had any new neurologic symptoms. No headache and he feels his language is mildly improved. PHYSICAL EXAMINATION: He is awake and alert, oriented to person and place. He believes it to be 2019, but I believe that to be language related. He had minor difficulty with naming, minor difficulty with repetitions and 3-step commands are adequate, but mildly slow. There is normal extraocular motility. No field cut. Normal facial symmetry. There is no dysarthria. I do not appreciate any significant weakness and there is normal rapid alternating movements without drift. 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 Pt stable to mildly improved. Countinue coumadin with Goal INR 2-3. Continue antiplatelet therapy with good control of diabetes. The patient can see me as an outpatient post-discharge. Vertebral artery stenosis, asymptomatic. Continue risk factor modification for hypertension, diabetes, hyperlipidemia. MTDD
[2019-12-19] MEDS: ROSUVASTATIN CALCIUM 20 MG TAB PO SCH (20:47)
[2019-12-20 06:12] LABS: INR 1.6 (0.9-1.1); Prothrombin Time 16.7 Seconds (9.0-12.0)
--- NOTE | 2019-12-20 06:14 | Electrocardiogram Report ---
Test Reason : Blood Pressure : / mmHG Vent. Rate : 080 BPM Atrial Rate : 258 BPM P-R Int : 000 ms QRS Dur : 180 ms QT Int : 488 ms P-R-T Axes : 000 170 -15 degrees QTc Int : 562 ms Ventricular-paced rhythm Abnormal ECG When compared with ECG of 18-DEC-2019 03:59, Vent. rate has decreased BY 17 BPM Confirmed by Larry Doll ([id number]) on 12/20/2019 6:14:15 AM Referred By: REFERRED SELF Confirmed By:Larry Doll
[2019-12-20] MEDS: ISOSORBIDE DINITRATE 10 MG TAB PO SCH ×3 (06:21→16:59)
[2019-12-20] MEDS: HEPARIN SOD 5,000 UNIT/0.5 ML VIAL SQ SCH ×2 (06:21→13:25)
[2019-12-20] MEDS: METOPROLOL SUCC 50MG EXT REL TAB PO SCH ×2 (08:41→20:34)
[2019-12-20] MEDS: FLUTICASONE/VILANTEROL 200/25MCG 14 PUFFS/INHALER INH SCH (08:41)
[2019-12-20] MEDS: PANTOprazole 40 MG TAB PO SCH (08:41)
[2019-12-20] MEDS: GABAPENTIN 100 MG CAP PO SCH ×3 (08:41→17:00)
[2019-12-20] MEDS: ASPIRIN 81 MG ECTAB PO SCH (08:41)
[2019-12-20] MEDS: INSULIN ASPART 100 UNITS/ML 3 ML PEN SC SCH ×4 (08:43→20:32)
[2019-12-20] MEDS ORDERED: INSULIN GLARGINE SOLOSTAR 100 UNITS/ML 3 ML PEN SC SCH ×2 (09:00)
[2019-12-20] MEDS: AMOXICILLIN/CLAVULANATE 500 MG TAB PO SCH ×2 (10:35→17:00)
--- NOTE | 2019-12-20 11:14 | Pharmacy Report ---
Pharmacy Glycemic Short Note 2 - Date of Service December 20, 2019 - Glycemic Short BSG Results (Last 24 hours): 12/19/19 12/19/19 12/19/19 11:38 16:28 20:20 POC Glucose 157 H 184 H 208 H 12/20/19 07:39 POC Glucose 88 OUTPATIENT ANTIDIABETIC REGIMEN: * Lantus 70 units SQ daily * Lispro with meals: 5 units/20 units/26 units/14 units at HS if high carb snack * A1c = 10.6% (11/2019) ASSESSMENT: * Patient admitted with aphasia with concern for embolic CVA, HTN, and hyperglycemia * He is well known to the Pharmacy Glycemic service. During his June 2019 admission he required 97-99 units of insulin per day (~40 units of basal) * Patient received 70 units of insulin yesterday * 40 units of basal, 30 units of prandial/correctional * BSGs of 114, 157, 184, and 208 mg/dL yesterday * Will tighten carb ratio today with lunch * Fasting BSG of 88 mg/dL this morning * Will decrease basal insulin by ~20% PLAN FOR INPATIENT GLYCEMIC CONTROL: * Hold outpatient oral diabetes medications * Basal insulin - decrease * Lantus 32 units SQ qAM * Bolus insulin - tighten carb ratio * NovoLog per scale ACHS or Q6hrs while NPO * Goal Range: Low 120 mg/dL - High 150 mg/dL * Correction Factor: 15 mg/dL/unit * Nutritional / Prandial insulin per carb ratio of 1 unit per 4.5 grams CHO consumed PLAN FOR DISCHARGE: * Patient's HbA1c of 10.6% is significantly above goal * Reasonable HbA1c goal for this patient would be less than 7% (especially now following ischemic stroke) * Outpatient insulin doses are significantly higher than currently ordered inpatient doses, which is likely related to outpatient diet and medication non-compliance. * Per events manager note: patient has follow-up appointment with [facility] on 12/28/19 - * Suggest continuing currently ordered home regimen with [facility] clinic to assess next week * Support Patient Self-Management * Healthy Lifestyle (diet, exercise, and smoking cessation) * Disease self-management (SMBG) * Prevention of complications (BP, Lipid goals, Immunizations) * Consider outpatient Diabetes Self-Management Education & Support * Encourage medication compliance
--- NOTE | 2019-12-20 12:00 | Cardiology Progress Note ---
Date of Service December 20, 2019 Assessment & Plan (1) Acute CVA (cerebrovascular accident): (2) Aphasia: (3) PAF (paroxysmal atrial fibrillation): (4) CKD (chronic kidney disease): (5) Chronic systolic (congestive) heart failure: The patient is doing well and is clinically stable. He can be discharged per the hospitalist service. He does have a follow-up appointment with Dr. Graves as well as the pacemaker clinic which she will keep. Admission and Anticipated Discharge Date Admission Date: December 18, 2019 Subjective No new complaints today. Review of Systems Review of Systems: All systems reviewed & are unremarkable except as noted in HPI & below Nothing additional to add. Physical Exam Physical Exam: General: no acute distress and stated age Head: normocephalic, no masses, lesions, tenderness or abnormalities Eyes: conjunctiva are pink and non-injected, sclera clear Neck: supple, no adenopathy, no bruits, normal jugular venous pulse, no hepatojugular reflux Chest: normal shape and normal respiratory effort Lungs: clear to auscultation and percussion Cardiac Exam: - regular rate & rhythm, no murmurs gallops or rubs - normal S1, normal S2 Pulses: 2(+) throughout Abdomen: abdomen soft, non-tender, no abnormal masses and no hepatosplenomegaly Musculoskeletal: no gait disturbance, no joint inflammation, no deforming arthritis Extremities: no edema and no cyanosis Neuro: grossly normal exam Results & Data ([facility]) Vital Signs (Past 12 Hours) Vital Signs Temp Pulse Pulse Resp BP BP Pulse Ox 12/20/19 08:23 36.5 C 80 18 123/82 97 12/20/19 07:33 72 12/20/19 02:52 36.7 C 72 20 149/93 H 98 12/20/19 00:59 80 Laboratory Results Laboratory Results - last 24 hr 12/19/19 12/19/19 12/20/19 16:28 20:20 05:19 PT 16.7 H INR 1.6 H POC Glucose 184 H 208 H 12/20/19 07:39 PT INR POC Glucose 88 Medications Administered Current Inpatient Medications Amoxicillin/Clavulanate Potassium (Amoxicillin/Clavulanate 500 Mg Tab) 1 tab PO BIDM [facility]; Protocol Stop: 12/25/19 08:19 Last Admin: 12/20/19 10:35 Dose: 1 tab Documented by: Aspirin (Aspirin 81 Mg Ectab) 81 mg PO DAILY [facility] Stop: 01/17/20 08:59 Last Admin: 12/20/19 08:41 Dose: 81 mg Documented by: Dextrose (Dextrose 50% 50 Ml Syringe) 25 - 50 ml IV UD PRN; Protocol PRN Reason: Hypoglycemia Protocol Stop: 01/17/20 06:52 Fluticasone/Vilanterol (Fluticasone/Vilanterol 200/25mcg 14 Puffs/Inhaler) 1 puffs INH DAILY [facility] Stop: 01/18/20 14:44 Last Admin: 12/20/19 08:41 Dose: 1 puffs Documented by: Gabapentin (Gabapentin 100 Mg Cap) 100 mg PO TIDM [facility] Stop: 01/17/20 07:59 Last Admin: 12/20/19 08:41 Dose: 100 mg Documented by: Glucagon (Glucagon For Inj 1 Mg Vial) 1 mg SQ UD PRN; Protocol PRN Reason: Hypoglycemia Protocol Stop: 01/17/20 06:52 Glucose (Glucose 10 Tabs/Tube) 4 - 8 tabs PO UD PRN; Protocol PRN Reason: Hypoglycemia Protocol Stop: 01/17/20 06:52 Glucose (Glucose 40% Gel 15 Gm Tube) 15 - 30 gm PO UD PRN; Protocol PRN Reason: Hypoglycemia Protocol Stop: 01/17/20 06:52 Heparin Sodium (Porcine) (Heparin Sod 5,000 Unit/0.5 Ml Vial) 5,000 units SQ Q8 [facility] Stop: 01/17/20 13:59 Last Admin: 12/20/19 06:21 Dose: 5,000 units Documented by: Hydromorphone HCl (Hydromorphone Inj 0.5 Mg/0.5 Ml Syr) 0.25 mg IV Q3H PRN PRN Reason: Pain Stop: 01/01/20 06:52 Promethazine HCl 12.5 mg/ (Sodium Chloride) 50.5 mls @ 202 mls/hr IV Q6H PRN PRN Reason: Nausea And Vomiting Stop: 01/17/20 06:52 Insulin Aspart (Insulin Aspart 100 Units/Ml 3 Ml Pen) 0 units SC ACHS [facility] Stop: 01/17/20 07:29 Last Admin: 12/20/19 08:43 Dose: 4 units Documented by: Insulin Glargine (Insulin Glargine Solostar 100 Units/Ml 3 Ml Pen) 32 units SC DAILY [facility]; Protocol Stop: 01/18/20 08:59 Last Admin: 12/20/19 08:41 Dose: 32 units Documented by: Ipratropium [place] (Ipratropium [place] Neb Soln 0.02% 2.5 Ml Vial) 0.5 mg INH Q6R PRN PRN Reason: sob/wheezing Stop: 01/17/20 17:59 Last Admin: 12/18/19 18:14 Dose: 0.5 mg Documented by: Isosorbide Dinitrate (Isosorbide Dinitrate 10 Mg Tab) 30 mg PO TID@0700,1200,1700 [facility] Stop: 01/18/20 14:59 Last Admin: 12/20/19 06:21 Dose: 30 mg Documented by: Levalbuterol HCl (Levalbuterol Hcl 0.63 Mg/3 Ml Neb) 0.63 mg NEB Q6R PRN PRN Reason: sob/wheezing Stop: 01/17/20 17:59 Last Admin: 12/18/19 18:14 Dose: 0.63 mg Documented by: Metoprolol Succinate (Metoprolol Succ 50mg Ext Rel Tab) 100 mg PO BID [facility] Stop: 01/17/20 20:59 Last Admin: 12/20/19 08:41 Dose: 100 mg Documented by: Miscellaneous (Carbohydrates For Hypoglycemia ) 15 - 30 gm PO UD PRN PRN Reason: Hypoglycemia Protocol Stop: 01/17/20 06:52 Miscellaneous Information (Pharmacist Discharge Med Rec Consult) 1 ea N/A UD PRN PRN Reason: Consult Stop: 01/17/20 06:52 Miscellaneous Information (Pharmacy Glycemic Mgmt Consult) 1 ea N/A UD PRN PRN Reason: Consult Stop: 01/17/20 10:19 Pantoprazole Sodium (Pantoprazole 40 Mg Tab) 40 mg PO DAILY [facility] Stop: 01/17/20 08:59 Last Admin: 12/20/19 08:41 Dose: 40 mg Documented by: Rosuvastatin Calcium (Rosuvastatin Calcium 20 Mg Tab) 40 mg PO HS [facility] Stop: 01/17/20 20:59 Last Admin: 12/19/19 20:47 Dose: 40 mg Documented by: Tramadol HCl (Tramadol Hcl 50 Mg Tablet) 25 - 50 mg PO Q4H PRN PRN Reason: Pain Stop: 01/17/20 06:52 Warfarin Sodium (Warfarin Sod 5 Mg Tab) 5 mg PO DAILY@1600 [facility] Stop: 01/18/20 15:59 Last Admin: 12/19/19 17:20 Dose: 5 mg Documented by: (1) CKD (chronic kidney disease) Chronic kidney disease stage: unspecified stage Qualified Code(s): N18.9 - Chronic kidney disease, unspecified
--- NOTE | 2019-12-20 13:21 | Hospitalist Progress Note ---
Date of Service December 20, 2019 Assessment & Plan (1) Aphasia: Expressive aphasia Possible related to acute CVA CT head showed no acute intracranial abnormality CTA head showed no evidence of major intracranial branch occlusion. No evidence of aneurysm CTA neck showed 75% stenosis of distal right vertebral artery and 40% stenosis the distal left vertebral artery. INR on admission subtherapeutic due to coumadin was recently on hold for outpatient EGD few days ago Neuro consult Coumadin, aspirin and statin resumed Unable to get an MRI due to pacemaker Repeat CT head showed no acute intracranial abnormality Echo showed left ventricular is mildly dilated. There is moderate concentric left ventricular hypertrophy. Ejection fraction 30 to 35%. The interatrial septum is intact with no evidence for an atrial septal defect. discussed about IV heparin with neuro, will hold that due to risk of bleeding and since his INR might be therapeutic soon, ok to do subq heparin for now Case discussed with neuro that recommended to continue aspirin, coumadin and statin Pacemaker interrogation done on 12/17 Continue speech and PT/OT therapy Continue outpatient speech therapy Follow up with neurology in 3 to 4 weeks Chronic Elevated troponin Seems to be related to CKD Troponin on admission 0.055-->then peak to 0.070, then trending down to 0.062 Denies any chest pain Echo showed left ventricular is mildly dilated. There is moderate concentric left ventricular hypertrophy. Ejection fraction 30 to 35%. Cardiology on board and recommended no further cardiac testing at this time Continue Metoprolol, statin and aspirin Hypertension BP elevated Isosorbide dinitrate and torsemide resume Continue metoprolol Lisinopril will resume on discharge Continue monitor BP Paroxysmal Afib Received digoxin x1 On 100mg toprol BID, but only received 25mg this morning Continue Metoprolol 100mg BID and isosorbide dinitrate On coumadin with INR 1.6 today cardiology recommended in the future if pt plans to have any procedure, he would need to be bridge with anticoagulant while coumadin on hold Continue aspirin and coumadin Follow up with the coag clinic S/P Pacemaker S/P biventricular pacemaker and defibrillator implantation in 06/2017. Pacemaker interrogation done UTI Has been having urinary frequency Urine cx grew enterococcus faecalis Will continue short course amoxicillin Stable Diabetes. Recent Hba1c 9.8 on 07/01/19 BS elevated Hba1c 11 on 12/18/19 On lantus and insulin sliding scale. Pharmacy on board for glycemic management Continue monitor BS Follow-up appointment with [facility] on 12/28/19 . Vertebral artery stenosis CTA neck showed 75% stenosis of distal right vertebral artery and 40% stenosis the distal left vertebral artery. Continue aspirin, coumadin and statin Follow up outpatient Obstructive sleep apnea. Use oxygen in the nighttime. Chronic obstructive pulmonary disease Continue his home inhalers, Currently stable. Chronic systolic and diastolic congestive heart failure S/P biventricular pacemaker and defibrillator implantation in 06/2017. Continue Torsemide 10mg x5 weekly Continue Toprol-XL and isosorbide nitrate Chronic kidney disease stage IV. Baseline creatinine 2.6 to 3, present Creatinine stable DVT px on Coumadin with INR 1.6 On heparin subq for now until INR therapeutic Code status Full code Patient's requesting updates for providers. Ms. Lina Delarosa (contact numbers [phone], [phone]) Admission and Anticipated Discharge Date Admission Date: December 18, 2019 Subjective Pt was seen and examined Sitting in bed with no distress Pt said that he feels ok He said that his speech is the same I reviewed his A1c result with him that is 11 said that pt likes milk. Pt was informed milk causes his BS to elevate Denies any chest pain, palpitation and SOB Physical Exam Physical Exam: General- No acute distress Head- atraumatic Eyes- PERRL, EOMI, ENT- oropharynx clear Neck- supple, no JVD Lungs- clear to auscultation Heart- +murmur Abdomen- normal bowel sounds, soft, nontender Extremities- no calf tenderness, +trace edema Neuro- alert, oriented x 3; PERRL, EOMI; no facial palsy, expressive aphasia Skin- warm & dry Results & Data Results & Data ([facility]) Vital Signs (Past 12 Hours) Vital Signs Temp Pulse Pulse Resp BP BP Pulse Ox 12/20/19 08:23 36.5 C 80 18 123/82 97 12/20/19 07:33 72 12/20/19 02:52 36.7 C 72 20 149/93 H 98
[2019-12-20] MEDS ORDERED: TORSEMIDE 10 MG TAB PO ONE (13:45)
[2019-12-20] MEDS: WARFARIN SOD 5 MG TAB PO SCH (15:45)
[2019-12-20] MEDS ORDERED: WARFARIN SOD 5 MG TAB PO ONE (15:51)
--- NOTE | 2019-12-20 17:07 | Progress Notes ---
DATE: 12/20/2019 I am seeing Mr. Delarosa in followup of a cortical left MCA infarction, a clinical diagnosis as the patient's CT of the head showed no acute infarction and the patient cannot have an MRI. He feels that he is stable and his language is mildly improved. His INR today is 1.6. He denies any headache. PHYSICAL EXAMINATION: VITAL SIGNS: 143/91, 82, 20, 36.7. The patient is awake and alert, oriented to person, hospital. He has difficulty word finding to state the year. He has some hesitant naming, but is accurate. He has some difficulty with repetitions and 3-step commands are slow but adequate. There is no field cut. There is no facial asymmetry. Speech is nondysarthric. There is no upper extremity drift and lower extremities are symmetric. IMPRESSION: Left middle cerebral artery partial cortical infarction, embolic due to subtherapeutic INR. Given that it is now 3 days out and the patient still does not have a therapeutic INE I have discussed with Dr. Suarez and we have elected to anticoagulate until therapeutic INR of 2-3. He will discuss with pharmacy the safety of using Lovenox in this patient's renal insufficiency. An alternative would be to use heparin without bolus in the interim until INR therapeutic. I will sign off. Please have the patient see me in followup post discharge. NICOLE
[2019-12-20] MEDS ORDERED: ENOXAPARIN INJ 120 MG/0.8 ML SYR SC SCH (20:00)
[2019-12-20] MEDS: ROSUVASTATIN CALCIUM 20 MG TAB PO SCH (20:34)
[2019-12-21] MEDS: IPRATROPIUM BROMIDE NEB SOLN 0.02% 2.5 ML VIAL INH PRN (03:50)
[2019-12-21] MEDS: LEVALBUTEROL HCL 0.63 MG/3 ML NEB NEB PRN (03:50)
[2019-12-21 06:01] LABS: Hematocrit (blood only) 36.4 % (42-52); Hemoglobin 11.3 g/dL (14.0-18.0); Mean Corpuscular Hemoglobin 25.7 pg (25-34); Mean Corpuscular Volume 82.9 fL (80-100); Mean Platelet Volume 9.6 fL (7.4-10.4); Platelet Count 113 K/uL (130-400); RDW Coefficient of Variation 14.7 % (11.5-14.5); RDW Standard Deviation 44.7 fL (36.4-46.3); Red Blood Count 4.39 M/uL (4.7-6.1); White Blood Count 5.23 K/uL (4.8-10.8)
[2019-12-21 06:09] LABS: INR 1.9 (0.9-1.1); Prothrombin Time 19.8 Seconds (9.0-12.0)
[2019-12-21] MEDS: ISOSORBIDE DINITRATE 10 MG TAB PO SCH (06:20)
[2019-12-21 06:38] LABS: BUN Creatinine Ratio 16.9 (10-20); Calcium 8.9 mg/dl (8.5-10.1); Est GFR (African American) 26.9; Est GFR (Non-African American) 23.2; Potassium 3.8 mmol/L (3.5-5.1)
[2019-12-21] MEDS: GABAPENTIN 100 MG CAP PO SCH (08:16)
[2019-12-21] MEDS: METOPROLOL SUCC 50MG EXT REL TAB PO SCH (08:16)
[2019-12-21] MEDS: AMOXICILLIN/CLAVULANATE 500 MG TAB PO SCH (08:17)
[2019-12-21] MEDS: ASPIRIN 81 MG ECTAB PO SCH (08:17)
[2019-12-21] MEDS: PANTOprazole 40 MG TAB PO SCH (08:17)
[2019-12-21] MEDS: FLUTICASONE/VILANTEROL 200/25MCG 14 PUFFS/INHALER INH SCH (08:18)
[2019-12-21] MEDS: INSULIN ASPART 100 UNITS/ML 3 ML PEN SC SCH (08:19)
[2019-12-21] MEDS ORDERED: INSULIN GLARGINE SOLOSTAR 100 UNITS/ML 3 ML PEN SC SCH (09:00)
--- NOTE | 2019-12-21 10:18 | Pharmacy Report ---
Pharmacy Glycemic Short Note 2 - Date of Service December 21, 2019 - Glycemic Short BSG Results (Last 24 hours): 12/20/19 12/20/19 12/20/19 12:07 16:27 20:26 Glucose POC Glucose 144 H 134 H 124 H 12/21/19 12/21/19 12/21/19 03:34 05:29 07:53 Glucose 170 H POC Glucose 74 183 H OUTPATIENT ANTIDIABETIC REGIMEN: * Lantus 70 units SQ daily * Lispro with meals: 5 units/20 units/26 units/14 units at HS if high carb snack * A1c = 10.6% (11/2019) ASSESSMENT: * Patient admitted with aphasia with concern for embolic CVA, HTN, and hyperglycemia * He is well known to the Pharmacy Glycemic service. During his June 2019 admission he required 97-99 units of insulin per day (~40 units of basal) * Patient received 50 units of insulin yesterday * 32 units of basal, 18 units of prandial/correctional * BSGs very well-controlled yesterday (88, 144, 134, 124 mg/dL) * Will continue tightened carb ratio today * Fasting BSG of 183 mg/dL this morning * Will increase Lantus back to 40 units today PLAN FOR INPATIENT GLYCEMIC CONTROL: * Hold outpatient oral diabetes medications * Basal insulin - increase * Lantus 40 units SQ qAM * Bolus insulin - continue * NovoLog per scale ACHS or Q6hrs while NPO * Goal Range: Low 120 mg/dL - High 150 mg/dL * Correction Factor: 15 mg/dL/unit * Nutritional / Prandial insulin per carb ratio of 1 unit per 4.5 grams CHO consumed PLAN FOR DISCHARGE: * Patient's HbA1c of 10.6% is significantly above goal * Reasonable HbA1c goal for this patient would be less than 7% (especially now following ischemic stroke) * Outpatient insulin doses are significantly higher than currently ordered inpatient doses, which is likely related to outpatient diet and medication non-compliance. * Per raspberry checker note: patient has follow-up appointment with [facility] on 12/28/19 - * Suggest continuing currently ordered home regimen with [facility] clinic to assess next week * Support Patient Self-Management * Healthy Lifestyle (diet, exercise, and smoking cessation) * Disease self-management (SMBG) * Prevention of complications (BP, Lipid goals, Immunizations) * Consider outpatient Diabetes Self-Management Education & Support * Encourage medication compliance
[2019-12-21] MEDS ORDERED: STROKE PATIENT DISCHARGE STA (11:24)
--- NOTE | 2019-12-21 11:30 | Discharge Summary ---
Date of Service December 21, 2019 Admission HPI Per Admitting Provider History obtained from patient, family, and records. History somewhat limited from patient secondary to aphasia. Medical history significant for chronic diastolic heart failure secondary to nonischemic cardiomyopathy (EF 50%, TTE 2019) status post ICD, chronic LBBB, hx nonocclusive CAD, PVD as per records, A. fib on Coumadin, VHD (moderate aortic stenosis, mild AR/TR) hypertension, COPD as per records, ARPIT, DM 2 insulin requiring, chronic renal insufficiency (baseline creatinine of 2.6-3), chronic anemia (baseline hemoglobin of 10-11), chronic thrombocytopenia, past tobacco abuse Recent confinement June 2019 hypertensive urgency. Patient underwent outpatient EGD/EUS at [facility] 3 days ago for work-up for pancreatitis of unclear etiology following confinement at [facility] last month. Gastritis found on EGD. No significant pancreatic pathology on EUS. Coumadin stopped few days prior to procedure eventually resumed postprocedure. Around 9 PM last night, patient was at the [facility] with his family when patient was noted to have trouble finding the right words. Asking for hash brown when he really wanted chicken tenders as per family. On the way home, word finding difficulty more pronounced as per family. No facial asymmetry or arm weakness as per family. Usual bilateral leg weakness from arthritis as per family. Patient denies headache, chest pain, S OB. Weight at home a little up as per patient. Stroke alert called upon arrival at the ER. TPA not indicated as [place] [facility] [place] 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 Chronic obstructive pulmonary disease Chronic systolic and diastolic congestive heart failure Chronic kidney disease stage IV. Discharge Exam General- No acute distress Head- atraumatic Eyes- PERRL, EOMI, ENT- oropharynx clear Neck- supple, no JVD Lungs- clear to auscultation Heart- + murmur Abdomen- normal bowel sounds, soft, nontender Extremities- no calf tenderness Neuro- alert, oriented x 3; PERRL, EOMI; no facial palsy; no dysarthria Skin- warm & dry Discharge Data Allergies Allergy/AdvReac Type Severity Reaction Status Date / Time No Known Allergies Allergy Verified 12/18/19 04:29 Consultations 12/18/19 05:46 ED Decision to Admit Stat 12/18/19 06:53 Consult Case Management - Discharge Planning Routine Consult Neurology Routine 12/19/19 07:00 Consult Cardiology Routine Ordered Studies 12/18/19 04:15 CT angio head w con Urgent CT angio neck with con Urgent CT head/brain wo con Urgent 12/18/19 21:00 CT head/brain wo con Urgent 12/19/19 07:30 CT head/brain wo con Routine Diabetes Follow up Diabetes Follow-up Needed for HgbA1c >9% Hospital Course (1) Acute CVA (cerebrovascular accident): Cortical left MCA infarction: Left middle cerebral artery partial cortical infarction, embolic -strep paroxysmal A. fib due to subtherapeutic INR clinical diagnosis /CT head noncontrast showed no acute change, MRI of brain could not be done due to pacemaker Appreciate input from nephrology, Recommends continue anticoagulation with Coumadin goal INR 23 Risk factor modification, Add statin to keep LDL below 70 Given risk for thromboembolism in future for any surgical procedure, will need Lovenox bridge while interrupting Coumadin anticoagulation. Outpatient follow-up with neurology (2) Aphasia: Expressive aphasia Possible related to acute CVA CT head showed no acute intracranial abnormality CTA head showed no evidence of major intracranial branch occlusion. No evidence of aneurysm CTA neck showed 75% stenosis of distal right vertebral artery and 40% stenosis the distal left vertebral artery. INR on admission subtherapeutic due to coumadin was recently on hold for outpatient EGD few days ago Neuro consult Coumadin, aspirin and statin resumed Unable to get an MRI due to pacemaker Repeat CT head showed no acute intracranial abnormality Echo showed left ventricular is mildly dilated. There is moderate concentric left ventricular hypertrophy. Ejection fraction 30 to 35%. The interatrial septum is intact with no evidence for an atrial septal defect. Admitting continued, INR 1.9 today Pacemaker interrogation done on 12/17 Dysarthria resolved, has minimal to symptoms Continue outpatient speech therapy -prescription given to patient already Follow up with neurology in 3 to 4 weeks Chronic Elevated troponin Seems to be related to CKD Troponin on admission 0.055-->then peak to 0.070, then trending down to 0.062 Denies any chest pain Echo showed left ventricular is mildly dilated. There is moderate concentric left ventricular hypertrophy. Ejection fraction 30 to 35%. Cardiology on board and recommended no further cardiac testing at this time Continue Metoprolol, statin and aspirin Hypertension Isosorbide dinitrate and torsemide resume Continue metoprolol Lisinopril resumed Paroxysmal Afib Continue Metoprolol 100mg BID and isosorbide dinitrate Coumadin, INR 1.9 cardiology recommended in the future if pt plans to have any procedure, he would need to be bridge with anticoagulant while coumadin on hold Continue aspirin and coumadin Follow up with the coag clinic S/P Pacemaker S/P biventricular pacemaker and defibrillator implantation in 06/2017. Pacemaker interrogation done UTI Has been having urinary frequency Urine cx grew enterococcus faecalis Will continue short course amoxicillin Stable Diabetes. Recent Hba1c 9.8 on 07/01/19 BS elevated Hba1c 11 on 12/18/19 On lantus and insulin sliding scale. Pharmacy on board for glycemic management Continue monitor BS Follow-up appointment with [facility] on 12/28/19 . Vertebral artery stenosis CTA neck showed 75% stenosis of distal right vertebral artery and 40% stenosis the distal left vertebral artery. Continue aspirin, coumadin and statin Follow up outpatient Obstructive sleep apnea. Use oxygen in the nighttime. Chronic obstructive pulmonary disease Continue his home inhalers, Currently stable. Chronic systolic and diastolic congestive heart failure S/P biventricular pacemaker and defibrillator implantation in 06/2017. Continue Torsemide 10mg x5 weekly Continue Toprol-XL and isosorbide nitrate Chronic kidney disease stage IV. Baseline creatinine 2.6 to 3, present Creatinine stable DVT px on Coumadin 1.9 Code status Full code Disposition, stable to be discharged home today PT/INR check in 2 days Total Time Total Time Spent Total Time Spent (In Minutes): 35 minutes Total Time Includes: Examination of the Patient, Discharge Planning and Medication Reconciliation Discharge Plan Discharge Items Patient Disposition: Home - Home Health Services Reason For Visit: CVA Discharge Diagnosis: Acute left-sided MCA stroke Chronic Elevated troponin Hypertension Paroxysmal Afib S/P Pacemaker UTI Diabetes type 2 Vertebral artery stenosis Obstructive sleep apnea. Chronic obstructive pulmonary disease Chronic systolic and diastolic congestive heart failure Chronic kidney disease stage IV. Activity: Resume your previous activity Non-emergency contact: Primary Care Provider, Crossband Layer and Neurologist Call non-emergency contact if: you have any medication questions Follow-up/Referrals: Roxann Eldridge PA-C [Physician Refrigeration Engineer] - Mirlande Melton MD [Primary Care Provider] - 12/27/19 11:20 am (Date & Time 12/27/2019 11:20 AM Provider Mirlande Pickett MD Department Internal Medicine [facility] ) Diet: Carb Consistent or DM2 Ambulatory Orders: Prothrombin Time INR (Routine) Timeframe: 20191223 Location: Determined by Patient Ordered By: Bell Alfaro Attending Provider Instructions: Follow up with your primary care provider Dr. Adams Pickett on 12/26 @ 11:20 AM Follow up with Neurology Dr. Palacios or her colleagues in 3 to 4 weeks (Office will call you for the appointment) Follow up with the coumadin clinic to monitor your PT/INR Continue speech, physical and occupational therapy Follow up with your cardiology (Already had an appointment) Follow up with the tobacco prevention health educator with [facility] on 12/28/19 Fall precaution Complete the course of the antibiotic Continue monitor your blood sugar and bring your sugar log at your next appointment with your provider Follow a healthy diabetic diet and limited concentrated sweet intake Complete antibiotic 3 days for urine tract infection Pending Studies at Discharge: Yes Studies:: Lab PT /INR on Thursday12/23/2019 Stand-Alone Forms: [employer], Smoking Cessation Medications and DC Order Prescriptions: New amoxicillin-pot clavulanate 500-125 mg Tablet 1 tab PO BIDM 3 Days Qty: 6 RF: 0 Continued isosorbide dinitrate 10 mg Tablet 30 mg PO TIDM RF: 0 metoprolol succinate [Toprol XL] 100 mg Tablet Extended Release 24 Hr 100 mg PO BID RF: 0 aspirin 81 mg Tablet,Delayed Release (Dr/Ec) 81 mg PO DAILY RF: 0 pantoprazole [Protonix] 40 mg Tablet,Delayed Release (Dr/Ec) 40 mg PO DAILY RF: 0 rosuvastatin [Crestor] 40 mg Tablet 40 mg PO HS RF: 0 Lantus Solostar U-100 Insulin 100 unit/mL (3 mL) Insulin Pen 70 units SUBCUT DAILY RF: 0 cholecalciferol (vitamin D3) [Vitamin D3] 2,000 unit Capsule 2,000 unit PO DAILY RF: 0 hydralazine 25 mg Tablet 75 mg PO TID RF: 0 fluticasone propion-salmeterol [Advair Diskus] 500-50 mcg/dose Blister With Device 1 inh INHALATION BID RF: 0 torsemide 10 mg tablet 10 mg PO 5XWK RF: 0 gabapentin 100 mg Capsule 100 mg PO TIDM RF: 0 ipratropium-albuterol 0.5 mg-3 mg(2.5 mg base)/3 mL Solution For Nebulization 3 ml INHALATION QID PRN (Reason: Shortness Of Breath Or Wheezing) RF: 0 albuterol sulfate [ProAir HFA] 90 mcg/actuation Hfa Aerosol Inhaler 2 puff INHALATION Q4H PRN (Reason: Shortness Of Breath Or Wheezing) RF: 0 fluticasone propionate [Flonase Allergy Relief] 50 mcg/actuation Calvin,Suspension 2 spray INTRANASAL DAILY PRN (Reason: Nasal Congestion) RF: 0 warfarin 5 mg tablet See Rx Instructions .ROUTE .COMPLEX RF: 0 insulin lispro [Humalog KwikPen Insulin] 100 unit/mL Insulin Pen See Rx Instructions .ROUTE .COMPLEX RF: 0 lisinopril 5 mg Tablet 5 mg PO DAILY RF: 0 Vitron-C 65 mg iron- 125 mg Tablet,Delayed Release (Dr/Ec) 1 tab PO BID RF: 0 Discharge Orders: Discharge Order (Routine); Ordered 12/21/19 Ordered By: Bell Kay Admission Data Admit Date/Time: 12/18/19 06:16 Attending Provider: Bell Kay Admit Provider: Claudio Vazquez Primary Care Provider: Mirlande Melton Other Providers: Claudio Vazquez ; Roxann Eldridge ; Arpan Lara Kathleen ; Scar Pennington ; Christian Zurita ; [facility] ; [facility], [facility] Other Interventions: Discharge Summary Assessment (RN) Last Done: 12/21/19 11:40
--- NOTE | 2019-12-21 11:59 | Pharmacy Report ---
Pharmacist Stroke Counseling - Date of Service December 21, 2019 - Scope: Pharmacy has been consulted to provide medication discharge counseling for this patient admitted with [ischemic stroke] [hemorrhagic stroke] [transient ischemic attack] as per the Pharmacist Discharge Counseling for Stroke Patients Pro tocol. - Medications on Discharge: Home Medications Medication Instructions Recorded Confirmed Lantus Solostar U-100 Insulin 70 units SUBCUT DAILY 02/05/18 12/18/19 aspirin 81 mg PO DAILY 02/05/18 12/18/19 cholecalciferol (vitamin D3) 2,000 unit PO DAILY 02/05/18 12/18/19 [Vitamin D3] isosorbide dinitrate 30 mg PO TIDM 02/05/18 12/18/19 metoprolol succinate [Toprol XL] 100 mg PO BID 02/05/18 12/18/19 pantoprazole [Protonix] 40 mg PO DAILY 02/05/18 12/18/19 rosuvastatin [Crestor] 40 mg PO HS 02/05/18 12/18/19 gabapentin 100 mg PO TIDM 05/14/18 12/18/19 albuterol sulfate [ProAir HFA] 2 puff INHALATION Q4H PRN 08/01/18 12/18/19 fluticasone propionate [Flonase 2 spray INTRANASAL DAILY PRN 08/01/18 12/18/19 Allergy Relief] ipratropium-albuterol 3 ml INHALATION QID PRN 08/01/18 12/18/19 warfarin See Rx Instructions .ROUTE .COMPLEX 10/03/18 12/18/19 Vitron-C 1 tab PO BID 06/05/19 12/18/19 insulin lispro [Humalog KwikPen See Rx Instructions .ROUTE .COMPLEX 06/05/19 12/18/19 Insulin] lisinopril 5 mg PO DAILY 06/05/19 12/18/19 fluticasone propion-salmeterol 1 inh INHALATION BID 12/18/19 12/18/19 [Advair Diskus] hydralazine 75 mg PO TID 12/18/19 12/18/19 torsemide 10 mg PO 5XWK 12/18/19 12/18/19 New Rx's Medication Instructions Recorded amoxicillin-pot clavulanate 1 tab PO BIDM 3 Days #6 tab 12/20/19 - Action: The above medications, specifically ones for stroke treatment/prophylaxis, have been reviewed in detail with the patient and/or patient field sales representative(s) prior to discharge. This includes indication, common adverse reactions, drug interactions, and medication administration. Medication counseling has been employed using the teach-back method to ensure understanding. - Outcome: The patient and/or patient field sales representative(s) have demonstrated understanding of the medications. Additional comments: Provided counseling to patient over the phone. also present and helping with interview. Confirmed medications on discharged. Talked about new medication, augmentin for UTI and advised to take with food. Patient planning on following up with coumadin clinic on discharge for INR recheck. No other questions or concerns from patient/or his on discharge. Thank you for allowing pharmacy to be involved in the care of this patient. Please call [phone] with any additional questions
== END 2019-12-21 12:32 | disposition home health service (06) | DRG 65 ==
LOC: ED 03:55 → SUATTDRO 06:16 → 2N 06:16

== ENCOUNTER 2020-01-05 20:31 | Inpatient (IN) ==
[2020-01-05] MEDS ORDERED: NITROGLYCERIN 2% OINTMENT 30GM TUBE EXT ONE (21:25)
--- NOTE | 2020-01-05 21:48 | Emergency Department Note ---
History of Present Illness General Chief complaint: Chest Pain Stated complaint: HAVING TROUBLE BREATHING, CHEST PAIN Time Seen by Provider: 01/05/20 20:42 Source: patient Mode of arrival: EMS Limitations: no limitations History of Present Illness Provider complaint: Chest pain, shortness of breath Onset (ago): hour(s) Location: chest Radiation: non-radiation Severity: moderate Pain Consistency: + constant Maximum Pain Intensity: 10 Current Pain Intensity: 10 Quality: + dull Relieved By: + none Exacerbated By: + movement Associated symptoms: + chest pain and + shortness of breath; no fever/chills and no nausea/vomiting Treatments prior to arrival: none This is a 65 yo patient who presents to the ED with complaints of chest pain an shortness of breath. Patient states symptoms started this afternoon around 4pm. He states this is similar to prior episodes. Family at bedside states pt has a history of "filling with fluid" and takes a diuretic daily but has instructions to take an extra pill if he is short of breath which he did today. Pt states the chest pain is central, nonradiating, and feels like pressure. States his breathing is worse with exertion. Pt denies fevers/chills, no nausea/vomiting, no dizziness, no increased leg edema. Family states his INR was checked recently and was 2.3. He sees Dr. Graves for cardiology. No recent change in meds. She states pt was hospitalized recently with similar symptoms. No known exposure to coronavirus. He denies any bleeding from any site. States pain doesn't change with supine position. Pt with complicated cardiac hx including ishemic CM and BiV pacemaker. Pt seen during a time of high acuity and national emergency pandemic while wearing PPE. Home Medications Home Medications Medication Instructions Recorded Confirmed Type Lantus Solostar U-100 Insulin 75 units SUBCUT DAILY 02/05/18 01/05/20 History aspirin 81 mg PO DAILY 02/05/18 01/05/20 History cholecalciferol (vitamin D3) 2,000 unit PO DAILY 02/05/18 01/05/20 History [Vitamin D3] isosorbide dinitrate 30 mg PO TIDM 02/05/18 01/05/20 History metoprolol succinate [Toprol XL] 100 mg PO DAILY 02/05/18 01/05/20 History pantoprazole [Protonix] 40 mg PO DAILY 02/05/18 01/05/20 History rosuvastatin [Crestor] 40 mg PO HS 02/05/18 01/05/20 History gabapentin 100 mg PO TIDM 05/14/18 01/05/20 History albuterol sulfate [ProAir HFA] 2 puff INHALATION Q4H PRN 08/01/18 01/05/20 History fluticasone propionate [Flonase 2 spray INTRANASAL DAILY PRN 08/01/18 01/05/20 History Allergy Relief] ipratropium-albuterol 3 ml INHALATION QID PRN 08/01/18 01/05/20 History warfarin See Rx Instructions .ROUTE .COMPLEX 10/03/18 01/05/20 History Vitron-C 1 tab PO BID 06/05/19 01/05/20 History insulin lispro [Humalog KwikPen See Rx Instructions .ROUTE .COMPLEX 06/05/19 01/05/20 History Insulin] lisinopril 5 mg PO DAILY 06/05/19 01/05/20 History fluticasone propion-salmeterol 1 inh INHALATION BID 12/18/19 01/05/20 History [Advair Diskus] hydralazine 75 mg PO TID 12/18/19 01/05/20 History torsemide 10 mg PO [id number] 12/18/19 01/05/20 History Allergies Allergy/AdvReac Type Severity Reaction Status Date / Time No Known Allergies Allergy Verified 01/05/20 22:22 Past Med/Surg History Medical History Aortic stenosis Asthma Atrial fibrillation on chronic anticoagulation CAD (coronary artery disease) "nonobstructive" Chronic anemia Chronic systolic (congestive) heart failure Diabetic neuropathy DM type 2 (diabetes mellitus, type 2) Dyslipidemia GERD (gastroesophageal reflux disease) Hypertension LBBB (left bundle branch block) Nocturnal hypoxia on 2L NC O2 HS PAF (paroxysmal atrial fibrillation) Thrombocytopenia Surgical History H/O cardiac catheterization Non nonobstructive CAD on 2017 cardiac cath Presence of combination internal cardiac defibrillator (ICD) and pacemaker Family History Other Diabetes Hypertension Lung cancer Social History Smoking Status: Never smoker Tobacco Type: Smokeless Tobacco (Dip or Chew) Second Hand Exposure: No; Do You Dip or Chew Tobacco: Yes; Tobacco Cessation Education Requested by Patient: No Hx Alcohol Use: No Hx Substance Use: No Preferred Language: Bangladeshi Communication Ability: Effective Visual Impairment: Limited 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 and A total of 10 systems reviewed and were otherwise negative Physical Exam Vital Signs Vital Signs - 24 hr 01/05/20 20:35 Pulse Rate 95 H Respiratory Rate 22 Respiratory Effort / Characteristics Non-Labored Spontaneous Respiratory Depth Normal Blood Pressure 125/85 Blood Pressure Mean 98 Blood Pressure Position Lying Pulse Oximetry 98 Oxygen Delivery Method Room Air Sepsis Recent Fever Within 48 Hours No Sepsis New/Unexplained Change in Mental Status No Sepsis Action Taken by Nursing No Action Required GENERAL: alert, uncomfortable appearing, well nourished, no distress, non-toxic EYE EXAM: normal conjunctiva, PERRL and EOM's grossly intact OROPHARYNX: no exudate, no erythema, lips, buccal mucosa, and tongue normal and mucous membranes are moist NECK: supple, no nuchal rigidity, no adenopathy, non-tender LUNGS: Clear to auscultation. Normal chest wall mechanics, no w/r/r HEART: no murmurs, S1 normal and S2 normal, pacemaker noted left ant/sup chest wall ABDOMEN: abdomen soft, non-tender, normo-active bowel sounds, no masses, no rebound or guarding. BACK: Back is symmetrical on inspection and there is no deformity, no midline tenderness, no CVA tenderness. SKIN: no rashes and no bruising UPPER EXTREMITIES: upper extremities are grossly normal. FROM, nml pulses b/l. LOWER EXTREMITIES: 1+ pitting edema. FROM, nml pulses b/l. NEURO EXAM: Normal sensorium, cranial nerves II-XII grossly intact, normal speech, no gross weakness of arms, no gross weakness of legs. Gross sensation intact. Course Course 2234: Pt states chest pressure is improved but he still feels SOB. 2239: Case discussed with Dr. Desai. Administered Medications Aspirin (Aspirin 81 Mg Ectab) 81 mg PO DAILY [facility] Stop: 02/05/20 08:59 Last Admin: 01/07/20 08:00 Dose: 81 mg Documented by: [id number] Admin: 01/06/20 07:50 Dose: 81 mg Documented by: [id number] Fluticasone/Vilanterol (Fluticasone/Vilanterol 100/25mcg 14 Puffs/Inhaler) 1 puffs INH DAILY [facility] Stop: 02/05/20 08:59 Last Admin: 01/07/20 08:01 Dose: 1 puffs Documented by: [id number] Admin: 01/06/20 07:50 Dose: 1 puffs Documented by: [id number] Gabapentin (Gabapentin 100 Mg Cap) 100 mg PO TIDM [facility] Stop: 02/05/20 07:59 Last Admin: 01/07/20 16:32 Dose: 100 mg Documented by: [id number] Admin: 01/07/20 12:08 Dose: 100 mg Documented by: [id number] Admin: 01/07/20 07:55 Dose: 100 mg Documented by: [id number] Admin: 01/06/20 17:07 Dose: 100 mg Documented by: [id number] Admin: 01/06/20 12:02 Dose: 100 mg Documented by: [id number] Admin: 01/06/20 07:49 Dose: 100 mg Documented by: [id number] Hydralazine HCl (Hydralazine Hcl 25 Mg Tab) 75 mg PO TID [facility] Stop: 02/05/20 08:59 Last Admin: 01/07/20 13:25 Dose: 75 mg Documented by: [id number] Admin: 01/07/20 08:00 Dose: 75 mg Documented by: [id number] Admin: 01/06/20 20:26 Dose: 75 mg Documented by: [id number] Admin: 01/06/20 14:24 Dose: 75 mg Documented by: [id number] Admin: 01/06/20 07:50 Dose: 75 mg Documented by: [id number] Heparin Sodium/Dextrose (Heparin Sodium/Dextrose) 25,000 units in 500 mls @ 22 mls/hr IV .[id number] [facility]; Protocol Stop: 02/05/20 00:04 Last Titration: 01/07/20 19:16 Dose: 1,200 units/hr, 24 mls/hr Documented by: [id number] Cosigned by: [id number] Titration: 01/07/20 15:07 Dose: 1,200 units/hr, 24 mls/hr Documented by: [id number] Cosigned by: [id number] Titration: 01/07/20 07:40 Dose: 1,200 units/hr, 24 mls/hr Documented by: [id number] Cosigned by: [id number] Titration: 01/07/20 07:15 Dose: 1,100 units/hr, 22 mls/hr Documented by: [id number] Cosigned by: [id number] Admin: 01/07/20 00:16 Dose: 1,100 units/hr, 22 mls/hr Documented by: [id number] Cosigned by: [id number] Titration: 01/07/20 00:16 Dose: 1,100 units/hr, 22 mls/hr Documented by: [id number] Cosigned by: [id number] Titration: 01/06/20 19:06 Dose: 1,100 units/hr, 22 mls/hr Documented by: [id number] Cosigned by: [id number] Titration: 01/06/20 16:03 Dose: 1,100 units/hr, 22 mls/hr Documented by: [id number] Cosigned by: [id number] Titration: 01/06/20 09:32 Dose: 1,100 units/hr, 22 mls/hr Documented by: [id number] Cosigned by: [id number] Titration: 01/06/20 07:10 Dose: 1,000 units/hr, 20 mls/hr Documented by: [id number] Cosigned by: [id number] Admin: 01/06/20 01:08 Dose: 1,000 units/hr, 20 mls/hr Documented by: [id number] Cosigned by: [id number] Insulin Aspart (Insulin Aspart 100 Units/Ml 3 Ml Pen) 0 units SC ACHS [facility] Stop: 02/05/20 07:29 Last Admin: 01/07/20 16:49 Dose: 10 units Documented by: [id number] Cosigned by: [id number] Admin: 01/07/20 12:07 Dose: 11 units Documented by: [id number] Cosigned by: [id number] Admin: 01/07/20 07:53 Dose: 2 units Documented by: [id number] Cosigned by: [id number] Admin: 01/06/20 20:28 Dose: 3 units Documented by: [id number] Cosigned by: [id number] Admin: 01/06/20 17:05 Dose: 6 units Documented by: [id number] Cosigned by: [id number] Admin: 01/06/20 12:02 Dose: 7 units Documented by: [id number] Cosigned by: [id number] Admin: 01/06/20 07:51 Dose: 4 units Documented by: [id number] Cosigned by: [id number] Insulin Glargine (Insulin Glargine Solostar 100 Units/Ml 3 Ml Pen) 35 units SC DAILY [facility] Stop: 02/05/20 08:59 Last Admin: 01/07/20 08:02 Dose: 35 units Documented by: [id number] Cosigned by: [id number] Admin: 01/06/20 07:51 Dose: 35 units Documented by: [id number] Cosigned by: [id number] Isosorbide Dinitrate (Isosorbide Dinitrate 40 Mg Tab) 40 mg PO TID@0700,1200,1700 [facility] Stop: 02/06/20 11:59 Last Admin: 01/07/20 16:32 Dose: 40 mg Documented by: [id number] Admin: 01/07/20 12:49 Dose: 40 mg Documented by: [id number] Lisinopril (Lisinopril 10 Mg Tab) 10 mg PO DAILY [facility] Stop: 02/06/20 08:59 Last Admin: 01/07/20 08:00 Dose: 10 mg Documented by: [id number] Metoprolol Succinate (Metoprolol Succ 50mg Ext Rel Tab) 100 mg PO BID [facility] Stop: 02/05/20 20:59 Last Admin: 01/07/20 08:00 Dose: 100 mg Documented by: [id number] Admin: 01/06/20 20:26 Dose: 100 mg Documented by: [id number] Pantoprazole Sodium (Pantoprazole 40 Mg Tab) 40 mg PO DAILY [facility] Stop: 02/05/20 08:59 Last Admin: 01/07/20 08:00 Dose: 40 mg Documented by: [id number] Admin: 01/06/20 07:49 Dose: 40 mg Documented by: [id number] Rosuvastatin Calcium (Rosuvastatin Calcium 20 Mg Tab) 40 mg PO HS [facility] Stop: 02/05/20 20:59 Last Admin: 01/06/20 20:26 Dose: 40 mg Documented by: [id number] Vitamin D (Cholecalciferol 1,000 Units 25 Mcg Tab) 2,000 units PO DAILY [facility] Stop: 02/05/20 08:59 Last Admin: 01/07/20 08:00 Dose: 2,000 units Documented by: [id number] Admin: 01/06/20 07:48 Dose: 2,000 units Documented by: [id number] Warfarin Sodium (Warfarin Sod 10 Mg Tab) 10 mg PO MoFr@1600 [facility] Stop: 02/05/20 15:59 Last Admin: 01/06/20 17:05 Dose: 10 mg Documented by: [id number] Warfarin Sodium (Warfarin Sod 7.5 Mg Tab) 7.5 mg PO [id number]@1600 [facility] Stop: 02/06/20 15:59 Last Admin: 01/07/20 16:29 Dose: 7.5 mg Documented by: [id number] Discontinued Medications Heparin Sodium/Dextrose (Heparin Iv Low Dose *No* Bolus) 1 ea IV Q15M [facility]; Protocol Stop: 02/05/20 00:04 Last Admin: 01/06/20 01:48 Dose: Not Given Documented by: [id number] Admin: 01/06/20 01:48 Dose: Not Given Documented by: [id number] Admin: 01/06/20 01:48 Dose: Not Given Documented by: [id number] Heparin Sodium (Porcine) 4,000 (units/ Syringe) 4 mls @ 10 mls/min IV ONE ONE Stop: 01/06/20 09:16 Last Admin: 01/06/20 09:33 Dose: 10 mls/min Documented by: [id number] Cosigned by: [id number] Furosemide 40 mg/ Syringe 4 mls @ 4 mls/min IV ONE ONE Stop: 01/06/20 10:31 Last Admin: 01/06/20 12:02 Dose: 4 mls/min Documented by: [id number] Heparin Sodium (Porcine) 4,000 (units/ Syringe) 4 mls @ 10 mls/min IV ONE ONE; Protocol Stop: 01/07/20 08:01 Last Admin: 01/07/20 08:06 Dose: 10 mls/min Documented by: [id number] Cosigned by: [id number] Furosemide 40 mg/ Syringe 4 mls @ 4 mls/min IV ONE ONE Stop: 01/07/20 11:01 Last Admin: 01/07/20 11:10 Dose: 4 mls/min Documented by: [id number] Isosorbide Dinitrate (Isosorbide Dinitrate 10 Mg Tab) 30 mg PO TID@0700,1200,1700 [facility] Stop: 02/05/20 06:59 Last Admin: 01/07/20 07:54 Dose: 30 mg Documented by: [id number] Admin: 01/06/20 17:08 Dose: 30 mg Documented by: [id number] Admin: 01/06/20 12:02 Dose: 30 mg Documented by: [id number] Admin: 01/06/20 07:48 Dose: 30 mg Documented by: [id number] Lisinopril (Lisinopril 5 Mg Tab) 5 mg PO DAILY [facility] Stop: 02/05/20 08:59 Last Admin: 01/06/20 07:49 Dose: 5 mg Documented by: [id number] Lisinopril (Lisinopril 5 Mg Tab) 5 mg PO NOW ONE Stop: 01/06/20 10:17 Last Admin: 01/06/20 12:02 Dose: 5 mg Documented by: [id number] Metoprolol Succinate (Metoprolol Succ 50mg Ext Rel Tab) 100 mg PO DAILY [facility] Stop: 02/05/20 08:59 Last Admin: 01/06/20 07:49 Dose: 100 mg Documented by: [id number] Nitroglycerin (Nitroglycerin 2% Ointment 30gm Tube) 1 inch EXT Q6H ONE Stop: 01/05/20 21:26 Last Admin: 01/05/20 22:21 Dose: 1 inch Documented by: [id number] Medical Decision Making Differential Diagnosis Differential diagnoses includes but is not limited to acute coronary syndrome, myocardial infarction, pericarditis, pulmonary embolus, aortic dissection, pneumonia, pneumothorax, musculoskeletal, shingles, esophageal. Medical Records Attestation: I reviewed the patient's medical records. Home Medications Current Medication List: was personally reviewed by me Laboratory Data Attestation: I reviewed the patient's lab results. Result diagrams: 01/06/20 05:09 01/07/20 06:55 Lab Results 01/05/20 01/05/20 01/05/20 Range/Units 21:54 21:54 21:54 WBC 6.95 (4.8-10.8) K/uL RBC 4.44 L (4.7-6.1) M/uL Hgb 11.5 L (14.0-18.0) g/dL Hct 36.9 L (42-52) % MCV 83.1 (80-100) fL MCH 25.9 (25-34) pg MCHC 31.2 L (32-36) g/dL RDW Std Deviation 48.2 H (36.4-46.3) fL RDW Coeff of Joey 15.9 H (11.5-14.5) % Plt Count 118 L (130-400) K/uL MPV 10.0 (7.4-10.4) fL Immature Gran % (Auto) 0.3 % Neut % (Auto) 82.9 % Lymph % (Auto) 8.8 % Desha % (Auto) 6.3 % Eos % (Auto) 1.7 % Baso % (Auto) 0.0 % Neut # (Auto) 5.76 (1.4-6.5) K/uL Lymph # (Auto) 0.61 L (1.2-3.4) K/uL Desha # (Auto) 0.44 (0.11-0.59) K/uL Eos # (Auto) 0.12 (0-0.5) K/uL Baso # (Auto) 0.00 (0-0.2) K/uL Immature Gran # (Auto) 0.02 (0.00-0.02) K/uL PT Cancelled INR Cancelled APTT (21.0-31.0) Seconds PTT Ratio Sodium 140 (136-145) mmol/L Potassium 4.3 (3.5-5.1) mmol/L Chloride 108 H (98-107) mmol/L Carbon Dioxide 26 (21-32) mmol/L Anion Gap 7.0 (3-11) BUN 47 H (7-18) mg/dl Creatinine 2.87 H (0.6-1.4) mg/dl Est Cr Clr Drug Dosing Not Reportable Est GFR ( Amer) 25.3 Est GFR (Non-Af Amer) 21.8 BUN/Creatinine Ratio 16.4 (10-20) Glucose 242 H (70-99) mg/dl POC Glucose (70-99) mg/dl Estimat Average Glucose mg/dl Hemoglobin A1c (4.5-5.6) % Calcium 9.4 (8.5-10.1) mg/dl Magnesium 2.2 (1.8-2.4) mg/dl Total Bilirubin 0.8 (0.2-1) mg/dl AST 29 (15-37) U/L ALT 36 (12-78) U/L Alkaline Phosphatase 101 (45-117) U/L Troponin I 0.064 H* (0-0.045) ng/ml NT-Pro-B Natriuret Pep 9971 H (0-900) pg/ml Total Protein 7.2 (6.4-8.2) gm/dl Albumin 3.5 (3.4-5.0) gm/dl Globulin 3.7 (2.5-4.0) gm/dl Albumin/Globulin Ratio 1.0 (0.9-2) 01/05/20 01/06/20 01/06/20 Range/Units 22:43 05:09 05:09 WBC 5.53 (4.8-10.8) K/uL RBC 4.12 L (4.7-6.1) M/uL Hgb 10.6 L (14.0-18.0) g/dL Hct 34.5 L (42-52) % MCV 83.7 (80-100) fL MCH 25.7 (25-34) pg MCHC 30.7 L (32-36) g/dL RDW Std Deviation 49.0 H (36.4-46.3) fL RDW Coeff of Joey 16.0 H (11.5-14.5) % Plt Count 104 L (130-400) K/uL MPV 9.5 (7.4-10.4) fL Immature Gran % (Auto) 0.2 % Neut % (Auto) 74.7 % Lymph % (Auto) 14.1 % Desha % (Auto) 9.2 % Eos % (Auto) 1.6 % Baso % (Auto) 0.2 % Neut # (Auto) 4.13 (1.4-6.5) K/uL Lymph # (Auto) 0.78 L (1.2-3.4) K/uL Desha # (Auto) 0.51 (0.11-0.59) K/uL Eos # (Auto) 0.09 (0-0.5) K/uL Baso # (Auto) 0.01 (0-0.2) K/uL Immature Gran # (Auto) 0.01 (0.00-0.02) K/uL PT 17.9 H INR 1.7 H APTT 32.3 H (21.0-31.0) Seconds PTT Ratio 1.2 Sodium 139 (136-145) mmol/L Potassium 4.1 (3.5-5.1) mmol/L Chloride 106 (98-107) mmol/L Carbon Dioxide 29 (21-32) mmol/L Anion Gap 4.0 (3-11) BUN 48 H (7-18) mg/dl Creatinine 2.79 H (0.6-1.4) mg/dl Est Cr Clr Drug Dosing 33.3 Est GFR ( Amer) 26.2 Est GFR (Non-Af Amer) 22.6 BUN/Creatinine Ratio 17.2 (10-20) Glucose 258 H (70-99) mg/dl POC Glucose (70-99) mg/dl Estimat Average Glucose mg/dl Hemoglobin A1c (4.5-5.6) % Calcium 9.0 (8.5-10.1) mg/dl Magnesium 2.0 (1.8-2.4) mg/dl Total Bilirubin (0.2-1) mg/dl AST (15-37) U/L ALT (12-78) U/L Alkaline Phosphatase (45-117) U/L Troponin I 0.060 H* (0-0.045) ng/ml NT-Pro-B Natriuret Pep (0-900) pg/ml Total Protein (6.4-8.2) gm/dl Albumin (3.4-5.0) gm/dl Globulin (2.5-4.0) gm/dl Albumin/Globulin Ratio (0.9-2) 01/06/20 01/06/20 01/06/20 Range/Units 05:09 05:09 07:25 WBC (4.8-10.8) K/uL RBC (4.7-6.1) M/uL Hgb (14.0-18.0) g/dL Hct (42-52) % MCV (80-100) fL MCH (25-34) pg MCHC (32-36) g/dL RDW Std Deviation (36.4-46.3) fL RDW Coeff of Joey (11.5-14.5) % Plt Count (130-400) K/uL MPV (7.4-10.4) fL Immature Gran % (Auto) % Neut % (Auto) % Lymph % (Auto) % Desha % (Auto) % Eos % (Auto) % Baso % (Auto) % Neut # (Auto) (1.4-6.5) K/uL Lymph # (Auto) (1.2-3.4) K/uL Desha # (Auto) (0.11-0.59) K/uL Eos # (Auto) (0-0.5) K/uL Baso # (Auto) (0-0.2) K/uL Immature Gran # (Auto) (0.00-0.02) K/uL PT 17.8 H INR 1.7 H APTT (21.0-31.0) Seconds PTT Ratio Sodium (136-145) mmol/L Potassium (3.5-5.1) mmol/L Chloride (98-107) mmol/L Carbon Dioxide (21-32) mmol/L Anion Gap (3-11) BUN (7-18) mg/dl Creatinine (0.6-1.4) mg/dl Est Cr Clr Drug Dosing Est GFR ( Amer) Est GFR (Non-Af Amer) BUN/Creatinine Ratio (10-20) Glucose (70-99) mg/dl POC Glucose 245 H (70-99) mg/dl Estimat Average Glucose 252 mg/dl Hemoglobin A1c 10.4 H (4.5-5.6) % Calcium (8.5-10.1) mg/dl Magnesium (1.8-2.4) mg/dl Total Bilirubin (0.2-1) mg/dl AST (15-37) U/L ALT (12-78) U/L Alkaline Phosphatase (45-117) U/L Troponin I (0-0.045) ng/ml NT-Pro-B Natriuret Pep (0-900) pg/ml Total Protein (6.4-8.2) gm/dl Albumin (3.4-5.0) gm/dl Globulin (2.5-4.0) gm/dl Albumin/Globulin Ratio (0.9-2) 01/06/20 01/06/20 01/06/20 Range/Units 07:29 10:42 11:41 WBC (4.8-10.8) K/uL RBC (4.7-6.1) M/uL Hgb (14.0-18.0) g/dL Hct (42-52) % MCV (80-100) fL MCH (25-34) pg MCHC (32-36) g/dL RDW Std Deviation (36.4-46.3) fL RDW Coeff of Joey (11.5-14.5) % Plt Count (130-400) K/uL MPV (7.4-10.4) fL Immature Gran % (Auto) % Neut % (Auto) % Lymph % (Auto) % Desha % (Auto) % Eos % (Auto) % Baso % (Auto) % Neut # (Auto) (1.4-6.5) K/uL Lymph # (Auto) (1.2-3.4) K/uL Desha # (Auto) (0.11-0.59) K/uL Eos # (Auto) (0-0.5) K/uL Baso # (Auto) (0-0.2) K/uL Immature Gran # (Auto) (0.00-0.02) K/uL PT INR APTT 42.0 H (21.0-31.0) Seconds PTT Ratio 1.5 Sodium (136-145) mmol/L Potassium (3.5-5.1) mmol/L Chloride (98-107) mmol/L Carbon Dioxide (21-32) mmol/L Anion Gap (3-11) BUN (7-18) mg/dl Creatinine (0.6-1.4) mg/dl Est Cr Clr Drug Dosing Est GFR ( Amer) Est GFR (Non-Af Amer) BUN/Creatinine Ratio (10-20) Glucose (70-99) mg/dl POC Glucose 219 H (70-99) mg/dl Estimat Average Glucose mg/dl Hemoglobin A1c (4.5-5.6) % Calcium (8.5-10.1) mg/dl Magnesium (1.8-2.4) mg/dl Total Bilirubin (0.2-1) mg/dl AST (15-37) U/L ALT (12-78) U/L Alkaline Phosphatase (45-117) U/L Troponin I 0.054 H* (0-0.045) ng/ml NT-Pro-B Natriuret Pep (0-900) pg/ml Total Protein (6.4-8.2) gm/dl Albumin (3.4-5.0) gm/dl Globulin (2.5-4.0) gm/dl Albumin/Globulin Ratio (0.9-2) 01/06/20 01/06/20 Range/Units 15:17 16:11 WBC (4.8-10.8) K/uL RBC (4.7-6.1) M/uL Hgb (14.0-18.0) g/dL Hct (42-52) % MCV (80-100) fL MCH (25-34) pg MCHC (32-36) g/dL RDW Std Deviation (36.4-46.3) fL RDW Coeff of Joey (11.5-14.5) % Plt Count (130-400) K/uL MPV (7.4-10.4) fL Immature Gran % (Auto) % Neut % (Auto) % Lymph % (Auto) % Desha % (Auto) % Eos % (Auto) % Baso % (Auto) % Neut # (Auto) (1.4-6.5) K/uL Lymph # (Auto) (1.2-3.4) K/uL Desha # (Auto) (0.11-0.59) K/uL Eos # (Auto) (0-0.5) K/uL Baso # (Auto) (0-0.2) K/uL Immature Gran # (Auto) (0.00-0.02) K/uL PT INR APTT 54.4 H* (21.0-31.0) Seconds PTT Ratio 1.9 Sodium (136-145) mmol/L Potassium (3.5-5.1) mmol/L Chloride (98-107) mmol/L Carbon Dioxide (21-32) mmol/L Anion Gap (3-11) BUN (7-18) mg/dl Creatinine (0.6-1.4) mg/dl Est Cr Clr Drug Dosing Est GFR ( Amer) Est GFR (Non-Af Amer) BUN/Creatinine Ratio (10-20) Glucose (70-99) mg/dl POC Glucose 170 H (70-99) mg/dl Estimat Average Glucose mg/dl Hemoglobin A1c (4.5-5.6) % Calcium (8.5-10.1) mg/dl Magnesium (1.8-2.4) mg/dl Total Bilirubin (0.2-1) mg/dl AST (15-37) U/L ALT (12-78) U/L Alkaline Phosphatase (45-117) U/L Troponin I (0-0.045) ng/ml NT-Pro-B Natriuret Pep (0-900) pg/ml Total Protein (6.4-8.2) gm/dl Albumin (3.4-5.0) gm/dl Globulin (2.5-4.0) gm/dl Albumin/Globulin Ratio (0.9-2) Imaging Data My Impression: X-ray: I interpreted the following studies. Chest: A single view study of the chest was reviewed and was negative for cardiomegaly, focal infiltrate, effusion, pulmonary edema, or wide mediastinum. Pacemaker noted. ECG Data Attestation: I personally reviewed and interpreted this ECG as follows: Indication: + chest pain Rate (beats per minute): 106 Rhythm: + other (paced) ECG Intervals/blocks: + IVCD and + Prolonged QT ECG Oliver: + Left axis deviation ECG ST segments: + Nonspecific ST abnormalities Blood Pressure Blood Pressure Findings: Elevated blood pressure Blood Pressure Disposition: further management by hospitalist ABDULLAHI Narrative Pt with extensive cardiac hx and here complaining of shortness of breath and chest pressure. Chest pressure relieved with nitro paste. Pt anticoagulated. Denies URI symptoms. VS stable and despite reported SOB, no hypoxia. Mildly increased WOB noted. Other labs reassuring and CXR unremarkable for acute pathology. Given significant hx, case discussed with hospitalist for additional evaluation. Pt had already taken an additional dose of his diuretic prior to arrival. Coags pending at time of discussion but recent check per family was 2.3 and he denied missing any doses. Pt with abnormal Cr, Troponin, and BNP, however these do not appear any worse compared to prior levels. At this time I do not suspect occult infection, tamponade, dissection, aneurysm, mediastinitis, GI bleed, PE. An order was placed for continuous cardiac monitoring. The monitor shows a rate of 78 with _paced_ rhythm. Impression & Plan Dyspnea, CKD (chronic kidney disease), Chest pain, Elevated troponin Discharge Plan Visit Data Chief Complaint: Chest Pain Stated Complaint: HAVING TROUBLE BREATHING, CHEST PAIN ED Provider: Sho Richards Discharge Problem: Dyspnea, CKD (chronic kidney disease), Chest pain, Elevated troponin Patient Disposition: Admitted As Inpatient Condition: Fair Discharge Instructions Interventions: ED Discharge Assessment Last Done: 01/06/20 00:03
[2020-01-05 22:03] LABS: Eosinophils # (auto) 0.12 K/uL (0-0.5); Eosinophils % (auto) 1.7 %; Hematocrit (blood only) 36.9 % (42-52); Hemoglobin 11.5 g/dL (14.0-18.0); Immature Granulocytes # (auto) 0.02 K/uL (0.00-0.02); Immature Granulocytes % (auto) 0.3 %; Lymphocytes # (auto) 0.61 K/uL (1.2-3.4); Lymphocytes % (auto) 8.8 %; Mean Corpuscular Hemoglobin 25.9 pg (25-34); Mean Corpuscular Hgb Conc 31.2 g/dL (32-36); Mean Corpuscular Volume 83.1 fL (80-100); Monocytes # (auto) 0.44 K/uL (0.11-0.59); Monocytes % (auto) 6.3 %; Neutrophils # (auto) 5.76 K/uL (1.4-6.5); Neutrophils % (auto) 82.9 %; Platelet Count 118 K/uL (130-400); RDW Coefficient of Variation 15.9 % (11.5-14.5); RDW Standard Deviation 48.2 fL (36.4-46.3); Red Blood Count 4.44 M/uL (4.7-6.1); White Blood Count 6.95 K/uL (4.8-10.8)
[2020-01-05 22:23] LABS: Alanine Aminotransferase 36 U/L (12-78); Albumin Level 3.5 gm/dl (3.4-5.0); Aspartate Aminotransferase 29 U/L (15-37); BUN Creatinine Ratio 16.4 (10-20); Blood Urea Nitrogen 47 mg/dl (7-18); Calcium 9.4 mg/dl (8.5-10.1); Carbon Dioxide 26 mmol/L (21-32); Chloride 108 mmol/L (98-107); Est GFR (African American) 25.3; Est GFR (Non-African American) 21.8; Glucose 242 mg/dl (70-99); Magnesium 2.2 mg/dl (1.8-2.4); Potassium 4.3 mmol/L (3.5-5.1); Sodium 140 mmol/L (136-145)
[2020-01-05 22:25] LABS: Alkaline Phosphatase 101 U/L (45-117); Bilirubin,Total 0.8 mg/dl (0.2-1); Globulin 3.7 gm/dl (2.5-4.0); NT Pro B Type Natriuretic Pept 9971 pg/ml (0-900); Total Protein 7.2 gm/dl (6.4-8.2); Troponin I 0.064 ng/ml (0-0.045)
[2020-01-05 23:17] LABS: INR 1.7 (0.9-1.1); Partial Thromboplastin Ratio 1.2; Partial Thromboplastin Time 32.3 Seconds (21.0-31.0); Prothrombin Time 17.9 Seconds (9.0-12.0)
[2020-01-06] MEDS ORDERED: FLUTICASONE PROPIONATE NA SPR 16 GM BTL PRN (00:05)
[2020-01-06] MEDS ORDERED: ALBUT/IPRATROP 3MG/0.5MG NEB 3 ML VIAL INH PRN (00:05)
[2020-01-06] MEDS ORDERED: TORSEMIDE 10 MG TAB PO PRN (00:05)
[2020-01-06] MEDS ORDERED: ACETAMINOPHEN 325 MG TAB PO PRN (00:05)
[2020-01-06] MEDS ORDERED: NITROGLYCERIN SL 0.4 MG/TAB TAB SL PRN (00:05)
[2020-01-06] MEDS ORDERED: ALBUTEROL HFA 8 GM INHALER INH PRN (00:26)
[2020-01-06] MEDS: HEPARIN SODIUM/DEXTROSE 25,000 UNITS/500 ML BAG IV SCH (01:08)
[2020-01-06] MEDS: Heparin IV Low Dose *NO* Bolus IV SCH (01:48)
--- NOTE | 2020-01-06 03:08 | History and Physical Report ---
DATE OF ADMISSION: 01/05/2020 CHIEF COMPLAINT: Chest pain, shortness of breath. HISTORY OF PRESENT ILLNESS: This is a 65-year-old male with past medical history significant for type 2 diabetes, hyperlipidemia, history of pancreatitis, history of COPD, history of sleep apnea, nocturnal hypoxia, history of mild persistent asthma without complication, history of multiple pulmonary nodules, chronic sinusitis, chronic systolic and diastolic CHF, atrial fibrillation, moderate aortic stenosis, hypertension, left bundle branch block, pulmonary hypertension, peripheral vascular disease, obesity, gastroparesis, status post AICD. The patient recently was in the hospital with aphasia and found to have acute ischemic left middle cerebral artery MCA stroke, on subtherapeutic INR. At that time, could not do MRI scan because of the AICD, TPA was not given. CTA of the neck 75% stenosis of the distal right vertebral artery and 40% stenosis of the distal left vertebral artery. At that time, he had subtherapeutic INR due to holding of Coumadin for recent EGD. The patient's dysarthria improved and discharged home with outpatient speech therapy. The patient followed with neurology. Comes here because of chest pain, shortness of breath. The patient says since today afternoon, he noticed chest pressure like feelings, slowly got progressively worse and also with some shortness of breath. The pain was on and off, pressure like feeling. It happened while sitting on the couch and was 8/10 in severity. Before he came to the hospital because of his shortness of breath, he took extra dose of torsemide before he started to come to the hospital. While he was coming to the hospital, he felt nauseous and some chills that got resolved now. Was placed on nitro paste in the ER, his chest pressure improved. Denies any headache, no dizziness, no blurred vision, no earache, no runny nose, no sore throat, no loss of sense of smell or taste. He says he is swallowing okay. Speech is improving slowly. His speech is pressured. Denies any cough, no vomiting, has some abdominal discomfort and denies any diarrhea or constipation, no blood in the stools or black stools. Normal bladder movements. No hematuria or burning micturition. He says he sleeps okay with the CPAP. He is ambulating slowly at home. He has some weakness in his legs. Currently resting comfortably and hemodynamically stable, saturating okay on room air. is in the room. ALLERGIES: No known drug allergies. PAST MEDICAL HISTORY: As mentioned above. PAST SURGICAL HISTORY: Right kidney and ureter surgery, cardiac catheterization, colonoscopy, EGDs, EGD with endoscopic ultrasound, lumbar spinal injection, lumbar cervical injection, status post pacemaker, status post removal of the skin cancer behind the left ear. MEDICATIONS: The patient is on albuterol 2 puffs q. 4 hours p.r.n., aspirin 81 mg p.o. daily, vitamin D 2000 units p.o. daily, Advair Diskus one inhalation b.i.d., Flonase 2 sprays intranasal daily p.r.n., gabapentin 100 mg p.o. t.i.d. with meals, hydralazine 75 mg p.o. t.i.d., Humalog sliding scale, albuterol and DuoNeb 3 mL q.i.d. p.r.n., isosorbide dinitrate 30 mg p.o. t.i.d. with meals, Lantus SoloSTAR 75 units subcutaneous daily, lisinopril 5 mg p.o. daily, Toprol-XL 100 mg p.o. daily, Protonix 40 mg p.o. daily, Crestor 40 mg p.o. at bedtime, torsemide 10 mg p.o. 5 times a week, vitamins, Vitron-C 1 tablet p.o. b.i.d., Coumadin as directed. FAMILY HISTORY: Significant for brother had lung cancer, diabetes. Mother has CHF. Sister has diabetes, lung cancer. Son has hypertension, diabetes, end-stage renal disease. SOCIAL HISTORY: . Chews tobacco, alcohol rarely. No drug use. REVIEW OF SYMPTOMS: As per HPI. Rest of the review of symptoms negative. PHYSICAL EXAMINATION: GENERAL: The patient is obese, not in acute distress. VITAL SIGNS: Temperature, afebrile, pulse 85, respiratory rate 23, blood pressure 146/103, oxygen 98% on room air. HEENT: No pallor, no icterus. Pupils equal, round, reactive to light. Oral mucosa moist. NECK: No JVD, no neck masses, no carotid bruits. CARDIOVASCULAR: S1, S2 heard, regular rate and rhythm, no murmur, no gallop. RESPIRATORY SYSTEM: Normal AP diameter. No accessory muscle use. No wheezing, no crackles. ABDOMEN: Soft, bowel sounds present. Mild right upper quadrant discomfort. No guarding, no rigidity. No distension. CENTRAL NERVOUS SYSTEM: Cranial nerves II-XII grossly intact. Nonfocal. EXTREMITIES: Mild pedal edema present, no erythema seen. LABORATORY DATA: WBC 6.9, hemoglobin 11.5, hematocrit 36.9, platelets 118. PT 17.9, INR 1.7, APTT 32.3. Sodium 140, potassium 4.3, chloride 108, bicarbonate 26, BUN 47, creatinine 2.8, serum glucose 242, calcium 9.4, magnesium 2.2, total bilirubin 0.8, AST 29, ALT 36, alkaline phosphatase 101. Troponin I 0.06. BNP 9971. IMAGING: Chest x-ray, no acute findings seen. No obvious congestion. EKG: Ventricular paced rhythm at rate of 106. ASSESSMENT AND PLAN: This is a 65-year-old male who presents with chest pain, shortness of breath. 1. Chest pain: EKG showed paced rhythm and he has chronic elevation of troponin, which is same as before .Has multiple risk factors. We will observe in the tele floor. We will do serial enzymes, repeat EKG. Will continue his home medication of isosorbide dinitrate, metoprolol, statin and aspirin. The patient is already on Coumadin, we will closely monitor. We will consult cardiology in a.m. for further recommendation. We will keep him n.p.o. for now. Nitroglycerin p.r.n. Currently seems to be improving. 2. Shortness of breath, possible acute on chronic systolic and diastolic congestive heart failure. The patient's EF is 30-35% with recent echo, and also has valvular heart disease with moderate mitral regurgitation, moderate tricuspid regurgitation and moderate aortic stenosis. He is on lisinopril, Toprol-XL, and hydralazine, and isosorbide dinitrate, took extra dose of torsemide before coming to the hospital. Presently does not seem to be volume overloaded. We will monitor, saturating okay on room air. Consult cardiology in a.m. Closely monitor in tele floor. 3. History of acute CVA with left middle cerebral artery partial cortical infarction, his speech is improving,. will continue speech therapy while in the hospital. Currently n.p.o. except meds. 4. Paroxysmal atrial fibrillation, rate controlled on metoprolol 100 mg p.o. b.i.d. INR subtherapeutic at 1.7. We will do a low dose IV heparin bridge and closely follow, his recent INR check as outpatient with Coumadin clinic yesterday was 2.1. We will follow the PT/INR daily while he is in the hospital. The patient is status post pacemaker placement, status post biventricular pacemaker defibrillation implantation in 06/20/2017. 5. Hypertension, on isosorbide dinitrate, metoprolol, lisinopril, hydralazine, diuretics. We will monitor the blood pressure. 6. Diabetes. Recent HbA1c was 11. We will cut back his Lantus to 35 units and insulin sliding scale. The patient is currently n.p.o. Resume full dose of Lantus when patient is able to eat. Monitor the blood sugars. 7. Vertebral artery stenosis, recent CTA neck showed 75% stenosis of the distal vertebral artery and 40% stenosis distal left vertebral artery, on aspirin, Coumadin, and statin. Needs followup. 8. Obstructive sleep apnea, on CPAP at bedtime with oxygen. 9. Chronic obstructive pulmonary disease: Continue his home inhalers, currently stable. 10. Chronic kidney disease stage IV. Baseline creatinine around 2.6 - 3.0. Currently creatinine is 2.8. We will follow the labs. 11. Deep venous thrombosis prophylaxis. INR is 1.7, bridged with IV heparin. 12. Disposition: Observation in tele floor. Level 1 full code as per discussion with the patient. PT and OT prior to discharge. Social Service to help with discharge planning. NICOLE
[2020-01-06 05:22] LABS: Basophils # (auto) 0.01 K/uL (0-0.2); Basophils % (auto) 0.2 %; Eosinophils # (auto) 0.09 K/uL (0-0.5); Eosinophils % (auto) 1.6 %; Hematocrit (blood only) 34.5 % (42-52); Hemoglobin 10.6 g/dL (14.0-18.0); Immature Granulocytes # (auto) 0.01 K/uL (0.00-0.02); Immature Granulocytes % (auto) 0.2 %; Lymphocytes # (auto) 0.78 K/uL (1.2-3.4); Lymphocytes % (auto) 14.1 %; Mean Corpuscular Hemoglobin 25.7 pg (25-34); Mean Corpuscular Hgb Conc 30.7 g/dL (32-36); Mean Corpuscular Volume 83.7 fL (80-100); Mean Platelet Volume 9.5 fL (7.4-10.4); Monocytes # (auto) 0.51 K/uL (0.11-0.59); Monocytes % (auto) 9.2 %; Neutrophils # (auto) 4.13 K/uL (1.4-6.5); Neutrophils % (auto) 74.7 %; Platelet Count 104 K/uL (130-400); Red Blood Count 4.12 M/uL (4.7-6.1); White Blood Count 5.53 K/uL (4.8-10.8)
[2020-01-06 05:32] LABS: INR 1.7 (0.9-1.1); Prothrombin Time 17.8 Seconds (9.0-12.0)
[2020-01-06 05:54] LABS: BUN Creatinine Ratio 17.2 (10-20); Creatinine Clr Calc Pharmacy 33.3 ml/min; Est GFR (African American) 26.2; Est GFR (Non-African American) 22.6; Potassium 4.1 mmol/L (3.5-5.1)
[2020-01-06 06:05] LABS: Troponin I 0.06 ng/ml (0-0.045)
--- NOTE | 2020-01-06 06:31 | XRay Report ---
XR chest 1V portable HISTORY: 65 years-old Male sob, cp acute shortness of breath with chest pain COMPARISON: Chest radiograph 12/18/2019 TECHNIQUE: Portable AP view of the chest FINDINGS: Unchanged cardiomegaly. Calcified plaque of the thoracic aortic arch. Mild pulmonary vascular congest ion. Left subclavian pacer/AICD. There is no pneumothorax, pleural effusion or airspace consolidation . Degenerative changes of the shoulders and spine. IMPRESSION: Cardiomegaly with pulmonary vascular congestion. ACT 112: Negative or not required by law. The above report was generated using voice recognition software. It may contain grammatical, syntax o r spelling errors. Electronically signed by: Barry Go M.D. 01/06/2020 6:30 AM
[2020-01-06 06:49] LABS: Estimated Average Glucose 252 mg/dl; Hemoglobin A1C 10.4 % (4.5-5.6)
[2020-01-06] MEDS: ISOSORBIDE DINITRATE 10 MG TAB PO SCH ×3 (07:48→17:08)
[2020-01-06] MEDS: CHOLECALCIFEROL 1,000 UNITS 25 MCG TAB PO SCH (07:48)
[2020-01-06] MEDS: PANTOprazole 40 MG TAB PO SCH (07:49)
[2020-01-06] MEDS: GABAPENTIN 100 MG CAP PO SCH ×3 (07:49→17:07)
[2020-01-06] MEDS: FLUTICASONE/VILANTEROL 100/25MCG 14 PUFFS/INHALER INH SCH (07:50)
[2020-01-06] MEDS: ASPIRIN 81 MG ECTAB PO SCH (07:50)
[2020-01-06] MEDS: INSULIN GLARGINE SOLOSTAR 100 UNITS/ML 3 ML PEN SC SCH (07:51)
[2020-01-06] MEDS: INSULIN ASPART 100 UNITS/ML 3 ML PEN SC SCH ×4 (07:51→20:28)
[2020-01-06 07:53] LABS: Partial Thromboplastin Ratio 1.5
--- NOTE | 2020-01-06 08:34 | Electrocardiogram Report ---
Test Reason : Blood Pressure : / mmHG Vent. Rate : 106 BPM Atrial Rate : 111 BPM P-R Int : 000 ms QRS Dur : 168 ms QT Int : 384 ms P-R-T Axes : 000 -06 135 degrees QTc Int : 510 ms Ventricular-paced rhythm Abnormal ECG When compared with ECG of 18-DEC-2019 10:20, Vent. rate has increased BY 26 BPM Confirmed by Shukri Roblero ([id number]) on 01/06/2020 8:34:22 AM Referred By: REFERRED SELF Confirmed By:Shukri Roblero
--- NOTE | 2020-01-06 08:43 | Electrocardiogram Report ---
Test Reason : Blood Pressure : / mmHG Vent. Rate : 085 BPM Atrial Rate : 041 BPM P-R Int : 000 ms QRS Dur : 192 ms QT Int : 488 ms P-R-T Axes : 000 176 -13 degrees QTc Int : 580 ms Ventricular-paced rhythm with occasional Premature ventricular complexes Abnormal ECG When compared with ECG of 05-JAN-2020 20:38, Premature ventricular complexes are now Present Vent. rate has decreased BY 21 BPM Confirmed by Shukri Roblero ([id number]) on 01/06/2020 8:43:31 AM Referred By: REFERRED SELF Confirmed By:Shukri Roblero
[2020-01-06] MEDS ORDERED: NON-FORMULARY MEDICATION (Iron,Carbonyl-Vitamin C [Vitron-C] 1 TAB) PO SCH (09:00)
[2020-01-06] MEDS ORDERED: METOPROLOL SUCC 50MG EXT REL TAB PO SCH (09:00)
[2020-01-06] MEDS ORDERED: lisinopriL 5 MG TAB PO SCH (09:00)
[2020-01-06] MEDS ORDERED: HEPARIN IV BOLUS 4,000 UNITS in SYRINGE 0 ML IV ONE (09:15)
--- NOTE | 2020-01-06 09:33 | Cardiology Consultation ---
Date of Consultation January 06, 2020 Assessment & Plan (1) Atypical chest pain: Patient is a very complex 65-year-old male with multiple issues as outlined above. He carries a longstanding history of atypical chest pain without obstructive coronary disease by prior evaluations. History is notable for hypertensive heart disease with diastolic and systolic heart failure, nonischemic cardiomyopathy and chronic renal failure Recent clinical course notable for hospitalization with acute Klebsiella cholangitis with positive blood cultures October 2019 with noted cholelithiasis and pancreatitis Recent course is notable for persistent atrial fibrillation since August of this year. Embolic stroke while off anticoagulation for endoscopy procedure in November. Current symptoms do not suggest acute cardiac ischemia though exam reflects mild volume overload and significant hypertension. Review of outpatient records reveals increase in lisinopril to 10 mg/day approximately 2 weeks ago. Patient chronically on metoprolol succinate 100 mg twice per day. Plan we will treat mild congestive heart failure single dose IV furosemide. Continue antihypertensive regimen with medications to be adjusted as above toward home regimen Continue chronic anticoagulation Given past sepsis in October and underlying structural heart disease/indwelling device blood cultures will be ordered (2) Hypertensive heart disease with chronic diastolic congestive heart failure: (3) CKD (chronic kidney disease): (4) Chronic atrial fibrillation: (5) Presence of combination internal cardiac defibrillator (ICD) and pacemaker: (6) CAD (coronary artery disease): (7) Aortic stenosis: (8) Acute CVA (cerebrovascular accident): History of Present Illness Reason for Consultation: Chest pain, congestive heart failure Requesting Physician: Dr. Kay Attending Physician: Bell Kay MD History of Present Illness Patient is a very complex 65-year-old male with ongoing issues include 1.Nonischemic cardiomyopathy with moderately severe LV dysfunction 2.Compensated class III congestive heart failure, systolic and diastolic. 3.Mild to moderate atherosclerotic coronary disease without obstruction by last cardiac catheterization June 2016 with chronic troponin elevation 4.Calcific aortic valve disease with moderate to borderline severe aortic stenosis. 5.Biventricular pacer defibrillator implantation June 2017. [id number] 6.Chronic, severe renal insufficiency stage 4, labile hypertension 7.Chronic anemia. 8. Past paroxysmal atrial fibrillation now persistent since August 2019 9. Chronic cholelithiasis with hospitalization for Klebsiella cholangitis/pancreatitis 10/21/2019, blood culture positive 10. Left middle cerebral artery distribution CVA while off anticoagulation for endoscopy procedure Patient presents today on referral with symptoms of intermittent chest pressure. Patient has longstanding history of atypical chest pain and recently underwent GI evaluation reflecting significant cholelithiasis. Course is unfortunately notable for embolic CVA while off anticoagulation. Patient presents now once again noting intermittent chest discomfort and just "not feeling well". Weight up 6 to 8 pounds increasing lower extremity edema. Patient took an additional torsemide day prior to presentation due to complaints. Denies fevers chills or productive cough. Notes no unexplained infection. Mild abdominal bloating chronically present without focal tenderness. Weight is up approximately 4 kg per our record Has been taking medications as prescribed. No noted bleeding difficulties Continues to have difficulty at times with word choosing and expressive aphasia Allergies Allergy/AdvReac Type Severity Reaction Status Date / Time No Known Allergies Allergy Verified 01/05/20 22:22 Home Medications Home Medications Medication Instructions Recorded Confirmed Type Lantus Solostar U-100 Insulin 75 units SUBCUT DAILY 02/05/18 01/05/20 History aspirin 81 mg PO DAILY 02/05/18 01/05/20 History cholecalciferol (vitamin D3) 2,000 unit PO DAILY 02/05/18 01/05/20 History [Vitamin D3] isosorbide dinitrate 30 mg PO TIDM 02/05/18 01/05/20 History metoprolol succinate [Toprol XL] 100 mg PO DAILY 02/05/18 01/05/20 History pantoprazole [Protonix] 40 mg PO DAILY 02/05/18 01/05/20 History rosuvastatin [Crestor] 40 mg PO HS 02/05/18 01/05/20 History gabapentin 100 mg PO TIDM 05/14/18 01/05/20 History albuterol sulfate [ProAir HFA] 2 puff INHALATION Q4H PRN 08/01/18 01/05/20 History fluticasone propionate [Flonase 2 spray INTRANASAL DAILY PRN 08/01/18 01/05/20 History Allergy Relief] ipratropium-albuterol 3 ml INHALATION QID PRN 08/01/18 01/05/20 History warfarin See Rx Instructions .ROUTE .COMPLEX 10/03/18 01/05/20 History Vitron-C 1 tab PO BID 06/05/19 01/05/20 History insulin lispro [Humalog KwikPen See Rx Instructions .ROUTE .COMPLEX 06/05/19 01/05/20 History Insulin] lisinopril 5 mg PO DAILY 06/05/19 01/05/20 History fluticasone propion-salmeterol 1 inh INHALATION BID 12/18/19 01/05/20 History [Advair Diskus] hydralazine 75 mg PO TID 12/18/19 01/05/20 History torsemide 10 mg PO [id number] 12/18/19 01/05/20 History Patient History Medical History Aortic stenosis Asthma Atrial fibrillation on chronic anticoagulation CAD (coronary artery disease) "nonobstructive" Chronic anemia Chronic systolic (congestive) heart failure Diabetic neuropathy DM type 2 (diabetes mellitus, type 2) Dyslipidemia GERD (gastroesophageal reflux disease) Hypertension LBBB (left bundle branch block) Nocturnal hypoxia on 2L NC O2 HS PAF (paroxysmal atrial fibrillation) Thrombocytopenia Surgical History H/O cardiac catheterization Non nonobstructive CAD on 2016 cardiac cath Presence of combination internal cardiac defibrillator (ICD) and pacemaker Family History Other Diabetes Hypertension Lung cancer Social History Smoking Status: Never smoker Tobacco Type: Smokeless Tobacco (Dip or Chew) Second Hand Exposure: No; Do You Dip or Chew Tobacco: Yes; Tobacco Cessation Education Requested by Patient: No Hx Alcohol Use: No Hx Substance Use: No Preferred Language: Liberian Communication Ability: Effective Visual Impairment: Limited Degreaser Operator Required: No Beliefs That Will Affect Care: None marital status: Current Living Situation: Spouse current occupational status: retired 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 Other Information That Helps Us Care for You: No Feels Safe at Home: Yes Safety Concerns: Feels Safe At This Time Review of Systems Review of Systems: All systems reviewed & are unremarkable except as noted in HPI & below Physical Exam Constitutional: WD/WN, vitals as above + obese; no acute distress Eyes: PERRL, conjunctivae normal, anicteric sclerae ENMT: external ear and nose normal, oropharynx normal Neck: trachea midline, no thyromegaly Respiratory: normal respiratory effort, lungs clear to auscultation Cardiovascular: Rate/Rhythm: regular rate and regular rhythm (Paced rhythm) Heart Sounds: normal S1, normal S2 and + murmur (Grade 3/6 harsh systolic murmur, no diastolic); no gallop Palpation: normal PMI Vessels: normal carotid upstroke and radial pulses present; no JVD and no carotid bruit Extremities: + edema (1-2+) Chest (Breasts): Chest: + pacemaker (No tenderness overlying pacemaker/defibrillator) Gastrointestinal (Abdomen): normal bowel sounds, soft, nontender, no hepatosplenomegaly Musculoskeletal: no cyanosis or clubbing, extremities motor strength 5/5 Skin: no rashes, warm and dry Neurologic: PERRL, EOMI, accommodation nl, no face palsy, no dysarthria Psychiatric: A+Ox3, euthymic affect Results & Data ([facility]) Vital Signs (Past 12 Hours) Vital Signs Temp Pulse Pulse Pulse Resp BP BP 01/06/20 07:26 36.8 C 78 17 154/101 H 01/06/20 03:50 36.8 C 82 19 144/79 H 01/06/20 00:10 36.4 C L 97 H 20 167/97 H 01/05/20 23:01 85 23 146/103 H 01/05/20 22:30 89 21 150/101 H 01/05/20 22:20 99 H 27 H 140/101 H Pulse Ox 01/06/20 07:26 94 01/06/20 03:50 100 01/06/20 00:10 97 01/05/20 23:01 98 01/05/20 22:30 98 01/05/20 22:20 98 Laboratory Results Laboratory Results - last 24 hr 01/05/20 01/05/20 01/05/20 21:54 21:54 21:54 WBC 6.95 RBC 4.44 L Hgb 11.5 L Hct 36.9 L MCV 83.1 MCH 25.9 MCHC 31.2 L RDW Std Deviation 48.2 H RDW Coeff of Joey 15.9 H Plt Count 118 L MPV 10.0 Immature Gran % (Auto) 0.3 Neut % (Auto) 82.9 Lymph % (Auto) 8.8 [place] % (Auto) 6.3 Eos % (Auto) 1.7 Baso % (Auto) 0.0 Neut # (Auto) 5.76 Lymph # (Auto) 0.61 L [place] # (Auto) 0.44 Eos # (Auto) 0.12 Baso # (Auto) 0.00 Immature Gran # (Auto) 0.02 PT Cancelled INR Cancelled APTT PTT Ratio Sodium 140 Potassium 4.3 Chloride 108 H Carbon Dioxide 26 Anion Gap 7.0 BUN 47 H Creatinine 2.87 H Est Cr Clr Drug Dosing Not Reportable Est GFR ( Amer) 25.3 Est GFR (Non-Af Amer) 21.8 BUN/Creatinine Ratio 16.4 Glucose 242 H POC Glucose Estimat Average Glucose Hemoglobin A1c Calcium 9.4 Magnesium 2.2 Total Bilirubin 0.8 AST 29 ALT 36 Alkaline Phosphatase 101 Troponin I 0.064 H* NT-Pro-B Natriuret Pep 9971 H Total Protein 7.2 Albumin 3.5 Globulin 3.7 Albumin/Globulin Ratio 1.0 01/05/20 01/06/20 01/06/20 22:43 05:09 05:09 WBC 5.53 RBC 4.12 L Hgb 10.6 L Hct 34.5 L MCV 83.7 MCH 25.7 MCHC 30.7 L RDW Std Deviation 49.0 H RDW Coeff of Joey 16.0 H Plt Count 104 L MPV 9.5 Immature Gran % (Auto) 0.2 Neut % (Auto) 74.7 Lymph % (Auto) 14.1 [place] % (Auto) 9.2 Eos % (Auto) 1.6 Baso % (Auto) 0.2 Neut # (Auto) 4.13 Lymph # (Auto) 0.78 L [place] # (Auto) 0.51 Eos # (Auto) 0.09 Baso # (Auto) 0.01 Immature Gran # (Auto) 0.01 PT 17.9 H INR 1.7 H APTT 32.3 H PTT Ratio 1.2 Sodium 139 Potassium 4.1 Chloride 106 Carbon Dioxide 29 Anion Gap 4.0 BUN 48 H Creatinine 2.79 H Est Cr Clr Drug Dosing 33.3 Est GFR ( Amer) 26.2 Est GFR (Non-Af Amer) 22.6 BUN/Creatinine Ratio 17.2 Glucose 258 H POC Glucose Estimat Average Glucose Hemoglobin A1c Calcium 9.0 Magnesium 2.0 Total Bilirubin AST ALT Alkaline Phosphatase Troponin I 0.060 H* NT-Pro-B Natriuret Pep Total Protein Albumin Globulin Albumin/Globulin Ratio 01/06/20 01/06/20 01/06/20 05:09 05:09 07:25 WBC RBC Hgb Hct MCV MCH MCHC RDW Std Deviation RDW Coeff of Joey Plt Count MPV Immature Gran % (Auto) Neut % (Auto) Lymph % (Auto) [place] % (Auto) Eos % (Auto) Baso % (Auto) Neut # (Auto) Lymph # (Auto) [place] # (Auto) Eos # (Auto) Baso # (Auto) Immature Gran # (Auto) PT 17.8 H INR 1.7 H APTT PTT Ratio Sodium Potassium Chloride Carbon Dioxide Anion Gap BUN Creatinine Est Cr Clr Drug Dosing Est GFR ( Amer) Est GFR (Non-Af Amer) BUN/Creatinine Ratio Glucose POC Glucose 245 H Estimat Average Glucose 252 Hemoglobin A1c 10.4 H Calcium Magnesium Total Bilirubin AST ALT Alkaline Phosphatase Troponin I NT-Pro-B Natriuret Pep Total Protein Albumin Globulin Albumin/Globulin Ratio 01/06/20 07:29 WBC RBC Hgb Hct MCV MCH MCHC RDW Std Deviation RDW Coeff of Joey Plt Count MPV Immature Gran % (Auto) Neut % (Auto) Lymph % (Auto) [place] % (Auto) Eos % (Auto) Baso % (Auto) Neut # (Auto) Lymph # (Auto) [place] # (Auto) Eos # (Auto) Baso # (Auto) Immature Gran # (Auto) PT INR APTT 42.0 H PTT Ratio 1.5 Sodium Potassium Chloride Carbon Dioxide Anion Gap BUN Creatinine Est Cr Clr Drug Dosing Est GFR ( Amer) Est GFR (Non-Af Amer) BUN/Creatinine Ratio Glucose POC Glucose Estimat Average Glucose Hemoglobin A1c Calcium Magnesium Total Bilirubin AST ALT Alkaline Phosphatase Troponin I NT-Pro-B Natriuret Pep Total Protein Albumin Globulin Albumin/Globulin Ratio (1) Aortic stenosis Cardiac valve disease etiology: nonrheumatic Qualified Code(s): I35.0 - Nonrheumatic aortic (valve) stenosis (2) CKD (chronic kidney disease) Chronic kidney disease stage: unspecified stage Qualified Code(s): N18.9 - Chronic kidney disease, unspecified
[2020-01-06] MEDS ORDERED: lisinopriL 5 MG TAB PO ONE (10:16)
[2020-01-06] MEDS ORDERED: CARBOHYDRATES FOR HYPOGLYCEMIA PO PRN (10:30)
[2020-01-06] MEDS ORDERED: GLUCOSE 40% GEL 15 GM TUBE PO PRN (10:30)
[2020-01-06] MEDS ORDERED: FUROSEMIDE 40 MG in SYRINGE 0 ML IV ONE (10:30)
[2020-01-06] MEDS ORDERED: DEXTROSE 50% 50 ML SYRINGE IV PRN (10:30)
[2020-01-06] MEDS ORDERED: GLUCAGON FOR INJ 1 MG VIAL IM PRN (10:30)
[2020-01-06] MEDS ORDERED: GLUCOSE 10 TABS/TUBE PO PRN (10:30)
[2020-01-06 15:51] LABS: Partial Thromboplastin Ratio 1.9
[2020-01-06 15:56] LABS: Partial Thromboplastin Time 54.4 Seconds (21.0-31.0)
[2020-01-06] MEDS ORDERED: WARFARIN SOD 10 MG TAB PO SCH (16:00)
[2020-01-06] MEDS ORDERED: WARFARIN SOD 5 MG TAB PO SCH (16:00)
--- NOTE | 2020-01-06 18:06 | Communication Note ---
Date of Service: January 06, 2020
--- NOTE | 2020-01-06 18:15 | Hospitalist Progress Note ---
Date of Service January 06, 2020 Assessment & Plan (1) Atypical chest pain: Does not have any symptoms right now Appreciate input from cardiology, chest discomfort is atypical for angina Shortness of breath possibly secondary to decompensated CHF with systolic dysfunction Presented with volume overload- lower extremity swelling increased weight gain ,dyspnea on exertion Acute on chronic CHF with reduced systolic function(HFrEF) Patient started with IV diuresis Continue to monitor intake and output, daily weight (2) Chronic atrial fibrillation: Remains rate controlled, Recent embolic CVA as patient was off anticoagulation for GI procedure INR subtherapeutic, ordered heparin bridge, Admission and Anticipated Discharge Date Admission Date: January 05, 2020 Subjective Patient sitting up in chair, denies of any shortness of breath, no chest pain or chest heaviness, no cough no fever or chills Review of Systems Review of Systems: All systems reviewed & are unremarkable except as noted in HPI & below Physical Exam Constitutional: WD/WN, vitals as above no acute distress Eyes: sclerae not anicteric ENMT: external ear and nose normal, oropharynx normal Neck: trachea midline, no thyromegaly Respiratory: normal respiratory effort; no respiratory distress and no cough Auscultation: no rales and no wheezes Cardiovascular: Rate/Rhythm: regular rate and regular rhythm Extremities: + edema (Trace edema) Gastrointestinal (Abdomen): Percussion/Palpation: abdomen soft; abdomen nontender Musculoskeletal: no cyanosis or clubbing, extremities motor strength 5/5 Skin: no rashes, warm and dry Neurologic: PERRL, EOMI, accommodation nl, no face palsy, no dysarthria Psychiatric: A+Ox3, euthymic affect Results & Data Results & Data ([facility]) Vital Signs (Past 12 Hours) Vital Signs Temp Pulse Resp BP Pulse Ox 01/06/20 15:04 36.7 C 78 18 149/85 H 96 01/06/20 07:26 36.8 C 78 17 154/101 H 94
[2020-01-06] MEDS: METOPROLOL SUCC 50MG EXT REL TAB PO SCH (20:26)
[2020-01-06] MEDS: ROSUVASTATIN CALCIUM 20 MG TAB PO SCH (20:26)
[2020-01-07] MEDS: HEPARIN SODIUM/DEXTROSE 25,000 UNITS/500 ML BAG IV SCH ×2 (00:16→21:38)
[2020-01-07 07:21] LABS: INR 1.5 (0.9-1.1); Partial Thromboplastin Ratio 1.5; Partial Thromboplastin Time 42.7 Seconds (21.0-31.0); Prothrombin Time 15.6 Seconds (9.0-12.0)
[2020-01-07] MEDS: INSULIN ASPART 100 UNITS/ML 3 ML PEN SC SCH ×4 (07:53→22:09)
[2020-01-07] MEDS: ISOSORBIDE DINITRATE 10 MG TAB PO SCH (07:54)
[2020-01-07] MEDS: GABAPENTIN 100 MG CAP PO SCH ×3 (07:55→16:32)
[2020-01-07] MEDS ORDERED: HEPARIN IV BOLUS 4,000 UNITS in SYRINGE 0 ML IV ONE (08:00)
[2020-01-07] MEDS: METOPROLOL SUCC 50MG EXT REL TAB PO SCH ×2 (08:00→22:14)
[2020-01-07] MEDS: PANTOprazole 40 MG TAB PO SCH (08:00)
[2020-01-07] MEDS: lisinopriL 10 MG TAB PO SCH (08:00)
[2020-01-07] MEDS: CHOLECALCIFEROL 1,000 UNITS 25 MCG TAB PO SCH (08:00)
[2020-01-07] MEDS: ASPIRIN 81 MG ECTAB PO SCH (08:00)
[2020-01-07] MEDS: FLUTICASONE/VILANTEROL 100/25MCG 14 PUFFS/INHALER INH SCH (08:01)
[2020-01-07] MEDS: INSULIN GLARGINE SOLOSTAR 100 UNITS/ML 3 ML PEN SC SCH (08:02)
[2020-01-07] MEDS ORDERED: FUROSEMIDE 40 MG in SYRINGE 0 ML IV ONE (11:00)
[2020-01-07 11:01] LABS: BUN Creatinine Ratio 15.8 (10-20); Calcium 9.1 mg/dl (8.5-10.1); Creatinine Clr Calc Pharmacy 31.8 ml/min; Est GFR (African American) 25.3; Est GFR (Non-African American) 21.8; Potassium 3.8 mmol/L (3.5-5.1)
--- NOTE | 2020-01-07 11:33 | Hospitalist Progress Note ---
Date of Service January 07, 2020 Assessment & Plan (1) Atypical chest pain: no symptom since admission Appreciate input from cardiology, chest discomfort is atypical for angina Shortness of breath possibly secondary to decompensated CHF with systolic dysfunction Presented with volume overload- lower extremity swelling increased weight gain ,dyspnea on exertion Acute on chronic CHF with reduced systolic function(HFrEF) pt given X1 dose of IV Lasix with adequate diuresis vol status appears to improve cont home dose of Torsemide Continue to monitor intake and output, daily weight (2) Chronic atrial fibrillation: Remains rate controlled, Recent embolic CVA as patient was off anticoagulation for GI procedure INR subtherapeutic, on iv heparin bridge, INR 1.5 , increased dose of Coumadin today will need to stay in hospital for IV heparin bridge ( sub q lovenox contraindicated due to advanced CKD /poor GFR ) goal INR 2-3 Disposition: discharge home when INR theraputic Admission and Anticipated Discharge Date Admission Date: January 06, 2020 Subjective had an uneventful night no recurrence of chest pain , no SOB or orthopnea lower ext edema improved no cough , no fever or chills pt feels like he is back to his baseline Review of Systems Review of Systems: All systems reviewed & are unremarkable except as noted in HPI & below Physical Exam Constitutional: WD/WN, vitals as above no acute distress Eyes: sclerae not anicteric ENMT: external ear and nose normal, oropharynx normal Neck: trachea midline, no thyromegaly Respiratory: normal respiratory effort; no respiratory distress and no cough Auscultation: no rales and no wheezes Cardiovascular: Rate/Rhythm: regular rate and regular rhythm Extremities: + edema (Trace edema) Gastrointestinal (Abdomen): Percussion/Palpation: abdomen soft; abdomen nontender Musculoskeletal: no cyanosis or clubbing, extremities motor strength 5/5 Skin: no rashes, warm and dry Neurologic: PERRL, EOMI, accommodation nl, no face palsy, no dysarthria Psychiatric: A+Ox3, euthymic affect Results & Data Results & Data ([facility]) Vital Signs (Past 12 Hours) Vital Signs Temp Pulse Pulse Resp BP Pulse Ox 01/07/20 11:22 36.9 C 72 20 146/84 H 96 01/07/20 10:00 77 01/07/20 07:46 36.7 C 79 20 156/83 H 96 01/07/20 03:47 36.7 C 63 16 133/85 94
--- NOTE | 2020-01-07 11:45 | Cardiology Progress Note ---
Date of Service January 07, 2020 Assessment & Plan (1) Atypical chest pain: Patient is a very complex 65-year-old male with multiple issues as outlined above. He carries a longstanding history of atypical chest pain without obstructive coronary disease by prior evaluations. History is notable for hypertensive heart disease with diastolic and systolic heart failure, nonischemic cardiomyopathy and chronic renal failure Recent clinical course notable for hospitalization with acute Klebsiella cholangitis with positive blood cultures October 2019 with noted cholelithiasis and pancreatitis Recent course is notable for persistent atrial fibrillation since August of this year. Embolic stroke while off anticoagulation for endoscopy procedure in November. Current symptoms do not suggest acute cardiac ischemia though exam reflects mild volume overload and significant hypertension. Review of outpatient records reveals increase in lisinopril to 10 mg/day approximately 2 weeks ago. Patient chronically on metoprolol succinate 100 mg twice per day. Plan: Give additional dose of IV furosemide today. Check renal function today and in a.m with recent upward titration of lisinopril Follow strict I's and O's daily weights Increase isosorbide dinitrate to 40 mg 3 times daily. This is being used in combination with hydralazine for afterload reduction Keep on IV heparin until warfarin therapeutic. Patient has sometimes difficulty with pills would observe warfarin administration (2) Hypertensive heart disease with chronic diastolic congestive heart failure: (3) CKD (chronic kidney disease): (4) Chronic atrial fibrillation: (5) Presence of combination internal cardiac defibrillator (ICD) and pacemaker: (6) CAD (coronary artery disease): (7) Aortic stenosis: (8) Acute CVA (cerebrovascular accident): Admission and Anticipated Discharge Date Admission Date: January 06, 2020 Subjective Patient was seen and examined, chart, medications, telemetry reviewed. Patient without further chest pain but still symptoms of orthopnea. Patient notes response to diuretics but not saving urine Blood pressure better controlled Physical Exam Constitutional: WD/WN, vitals as above + obese; no acute distress Eyes: PERRL, conjunctivae normal, anicteric sclerae ENMT: external ear and nose normal, oropharynx normal Neck: trachea midline, no thyromegaly Respiratory: normal respiratory effort, lungs clear to auscultation Cardiovascular: Rate/Rhythm: regular rate and regular rhythm (Paced rhythm) Heart Sounds: normal S1, normal S2 and + murmur (Grade 3/6 harsh systolic murmur, no diastolic); no gallop Palpation: normal PMI Vessels: normal carotid upstroke and radial pulses present; no JVD and no carotid bruit Extremities: + edema (1-2+) Chest (Breasts): Chest: + pacemaker (No tenderness overlying pacemaker/defibrillator) Gastrointestinal (Abdomen): normal bowel sounds, soft, nontender, no hepatosplenomegaly Musculoskeletal: no cyanosis or clubbing, extremities motor strength 5/5 Skin: no rashes, warm and dry Neurologic: PERRL, EOMI, accommodation nl, no face palsy, no dysarthria Psychiatric: A+Ox3, euthymic affect Results & Data ([facility]) Vital Signs (Past 12 Hours) Vital Signs Temp Pulse Pulse Resp BP Pulse Ox 01/07/20 11:22 36.9 C 72 20 146/84 H 96 01/07/20 10:00 77 01/07/20 07:46 36.7 C 79 20 156/83 H 96 01/07/20 03:47 36.7 C 63 16 133/85 94 (1) CKD (chronic kidney disease) Chronic kidney disease stage: unspecified stage Qualified Code(s): N18.9 - Chronic kidney disease, unspecified (2) Aortic stenosis Cardiac valve disease etiology: nonrheumatic Qualified Code(s): I35.0 - Nonrheumatic aortic (valve) stenosis
[2020-01-07] MEDS: ISOSORBIDE DINITRATE 40 MG TAB PO SCH ×2 (12:49→16:32)
[2020-01-07 14:47] LABS: Partial Thromboplastin Ratio 2.2
[2020-01-07 14:52] LABS: Partial Thromboplastin Time 62.1 Seconds (21.0-31.0)
[2020-01-07] MEDS ORDERED: WARFARIN SOD 5 MG TAB PO SCH (16:00)
[2020-01-07] MEDS: WARFARIN SOD 7.5 MG TAB PO SCH (16:29)
--- NOTE | 2020-01-07 16:57 | Electrocardiogram Report ---
Test Reason : Blood Pressure : / mmHG Vent. Rate : 074 BPM Atrial Rate : 074 BPM P-R Int : 000 ms QRS Dur : 180 ms QT Int : 498 ms P-R-T Axes : 000 -58 117 degrees QTc Int : 552 ms Suspect unspecified pacemaker failure Atrial fibrillation with frequent ventricular-paced complexes and fusion beats Left axis deviation Left ventricular hypertrophy with QRS widening Abnormal ECG When compared with ECG of 06-JAN-2020 06:20, Premature ventricular complexes are no longer Present Vent. rate has decreased BY 11 BPM Confirmed by Minor Parry ([id number]) on 01/07/2020 4:56:41 PM Referred By: REFERRED SELF Confirmed By:Bruno Parry
[2020-01-07] MEDS: ROSUVASTATIN CALCIUM 20 MG TAB PO SCH (22:13)
[2020-01-08] MEDS: ISOSORBIDE DINITRATE 40 MG TAB PO SCH ×3 (06:26→17:15)
[2020-01-08 07:16] LABS: Hematocrit (blood only) 34.7 % (42-52); Mean Corpuscular Hemoglobin 26.3 pg (25-34); Mean Corpuscular Hgb Conc 31.7 g/dL (32-36); Mean Platelet Volume 9.9 fL (7.4-10.4); Platelet Count 113 K/uL (130-400); RDW Coefficient of Variation 15.8 % (11.5-14.5); RDW Standard Deviation 47.7 fL (36.4-46.3); Red Blood Count 4.18 M/uL (4.7-6.1); White Blood Count 5.89 K/uL (4.8-10.8)
[2020-01-08 07:37] LABS: INR 1.7 (0.9-1.1); Partial Thromboplastin Ratio 1.8; Prothrombin Time 17.7 Seconds (9.0-12.0)
[2020-01-08 07:45] LABS: BUN Creatinine Ratio 14.4 (10-20); Calcium 9.3 mg/dl (8.5-10.1); Creatinine Clr Calc Pharmacy 29.5 ml/min; Est GFR (African American) 23.1; Potassium 3.8 mmol/L (3.5-5.1)
--- NOTE | 2020-01-08 08:17 | XRay Report ---
KUB HISTORY: Generalized abdominal pain COMPARISON: None. FINDINGS: The bowel gas pattern is unremarkable. There are no dilated loops of small bowel to suggest an obstruction. No renal calculi. No ureteral calculi. No pneumoperitoneum or pneumatosis. Pac[place] r wires and cardiomegaly are noted. There are surgical clips within the left upper quadrant. Vascular calcifications are noted. IMPRESSION: No evidence for bowel obstruction. ACT 112: Negative or not required by law. Electronically signed by: Tremaine Blackmon M.D. 01/08/2020 8:15 AM
[2020-01-08] MEDS: CHOLECALCIFEROL 1,000 UNITS 25 MCG TAB PO SCH (08:25)
[2020-01-08] MEDS: GABAPENTIN 100 MG CAP PO SCH ×3 (08:25→17:15)
[2020-01-08] MEDS: lisinopriL 10 MG TAB PO SCH (08:28)
[2020-01-08] MEDS: ASPIRIN 81 MG ECTAB PO SCH (08:28)
[2020-01-08] MEDS: PANTOprazole 40 MG TAB PO SCH (08:29)
[2020-01-08] MEDS: METOPROLOL SUCC 50MG EXT REL TAB PO SCH ×2 (08:31→20:55)
[2020-01-08] MEDS: FLUTICASONE/VILANTEROL 100/25MCG 14 PUFFS/INHALER INH SCH (08:31)
[2020-01-08] MEDS: INSULIN GLARGINE SOLOSTAR 100 UNITS/ML 3 ML PEN SC SCH (08:32)
[2020-01-08] MEDS: INSULIN ASPART 100 UNITS/ML 3 ML PEN SC SCH ×4 (08:43→20:56)
[2020-01-08] MEDS ORDERED: bisacodyL 5 MG TABEC PO ONE (10:18)
--- NOTE | 2020-01-08 10:21 | Communication Note ---
Date of Service: January 08, 2020 pt complained of sharp abdominal pain , since this AM no nausea or vomiting evaluated at bedside abdomen -distended , soft , bowel sound + minimum tenderness on left lower quadrant last BM was yesterday Xray of KUB : normal study , no evidence of obs or illeus resume diet ordered for bowel regimen increase activity as tolerated Bell Kay MD
[2020-01-08] MEDS: POLYETHYLENE (MIRALAX) 17 GM PACK PO SCH (11:43)
--- NOTE | 2020-01-08 11:45 | Cardiology Progress Note ---
Date of Service January 08, 2020 Assessment & Plan (1) Atypical chest pain: Patient is a very complex 65-year-old male with multiple issues as outlined above. He carries a longstanding history of atypical chest pain without obstructive coronary disease by prior evaluations. History is notable for hypertensive heart disease with diastolic and systolic heart failure, nonischemic cardiomyopathy and chronic renal failure Recent clinical course notable for hospitalization with acute Klebsiella cholangitis with positive blood cultures October 2019 with noted cholelithiasis and pancreatitis Recent course is notable for persistent atrial fibrillation since August of this year. Embolic stroke while off anticoagulation for endoscopy procedure in November. Current symptoms do not suggest acute cardiac ischemia though exam reflects mild volume overload and significant hypertension. Review of outpatient records reveals increase in lisinopril to 10 mg/day approximately 2 weeks ago. Patient chronically on metoprolol succinate 100 mg twice per day. Plan: Resume oral torsemide with first dose today, continue to follow renal function Keep on IV heparin until warfarin therapeutic. Patient has sometimes difficulty with pills would observe warfarin administration (2) Hypertensive heart disease with chronic diastolic congestive heart failure: Better controlled (3) CKD (chronic kidney disease): (4) Chronic atrial fibrillation: (5) Presence of combination internal cardiac defibrillator (ICD) and pacemaker: (6) CAD (coronary artery disease): (7) Aortic stenosis: (8) Acute CVA (cerebrovascular accident): Admission and Anticipated Discharge Date Admission Date: January 06, 2020 Subjective Patient was seen and examined, chart, medications, telemetry reviewed. Had difficulty sleeping last night but no acute complaints. No chest pain or discomfort. Sleeping wearing CPAP when initially evaluated, waking appropriately INR remains subtherapeutic Blood cultures are negative Review of Systems Review of Systems: All systems reviewed & are unremarkable except as noted in HPI & below Physical Exam Constitutional: WD/WN, vitals as above + obese; no acute distress Eyes: PERRL, conjunctivae normal, anicteric sclerae ENMT: external ear and nose normal, oropharynx normal Neck: trachea midline, no thyromegaly Respiratory: normal respiratory effort, lungs clear to auscultation Cardiovascular: Rate/Rhythm: regular rate and regular rhythm (Paced rhythm) Heart Sounds: normal S1, normal S2 and + murmur (Grade 3/6 harsh systolic murmur, no diastolic); no gallop Palpation: normal PMI Vessels: normal carotid upstroke and radial pulses present; no JVD and no carotid bruit Extremities: + edema (1-2+) Chest (Breasts): Chest: + pacemaker (No tenderness overlying pacemaker/defibrillator) Gastrointestinal (Abdomen): normal bowel sounds, soft, nontender, no hepatosplenomegaly Musculoskeletal: no cyanosis or clubbing, extremities motor strength 5/5 Skin: no rashes, warm and dry Neurologic: PERRL, EOMI, accommodation nl, no face palsy, no dysarthria Psychiatric: A+Ox3, euthymic affect Results & Data ([facility]) Vital Signs (Past 12 Hours) Vital Signs Temp Pulse Resp BP Pulse Ox 01/08/20 07:42 36.4 C L 70 17 148/90 H 96 01/08/20 04:30 36.4 C L 69 18 130/76 99 Laboratory Results Laboratory Results - last 24 hr 01/07/20 01/07/20 01/07/20 14:12 16:29 20:25 WBC RBC Hgb Hct MCV MCH MCHC RDW Std Deviation RDW Coeff of Joey Plt Count MPV PT INR APTT 62.1 H* PTT Ratio 2.2 Sodium Potassium Chloride Carbon Dioxide Anion Gap BUN Creatinine Est Cr Clr Drug Dosing Est GFR ( Amer) Est GFR (Non-Af Amer) BUN/Creatinine Ratio Glucose POC Glucose 249 H 372 H* Calcium 01/07/20 01/07/20 01/08/20 20:27 20:28 06:33 WBC RBC Hgb Hct MCV MCH MCHC RDW Std Deviation RDW Coeff of Joey Plt Count MPV PT INR APTT PTT Ratio Sodium 143 Potassium 3.8 Chloride 106 Carbon Dioxide 28 Anion Gap 8.0 BUN 44 H Creatinine 3.09 H Est Cr Clr Drug Dosing 29.5 Est GFR ( Amer) 23.1 Est GFR (Non-Af Amer) 20.0 BUN/Creatinine Ratio 14.4 Glucose 179 H POC Glucose 268 H 285 H Calcium 9.3 01/08/20 01/08/20 01/08/20 06:33 06:33 07:25 WBC 5.89 RBC 4.18 L Hgb 11.0 L Hct 34.7 L MCV 83.0 MCH 26.3 MCHC 31.7 L RDW Std Deviation 47.7 H RDW Coeff of Joey 15.8 H Plt Count 113 L MPV 9.9 PT 17.7 H INR 1.7 H APTT 51.0 H* PTT Ratio 1.8 Sodium Potassium Chloride Carbon Dioxide Anion Gap BUN Creatinine Est Cr Clr Drug Dosing Est GFR ( Amer) Est GFR (Non-Af Amer) BUN/Creatinine Ratio Glucose POC Glucose 194 H Calcium 01/08/20 01/08/20 08:42 11:26 WBC RBC Hgb Hct MCV MCH MCHC RDW Std Deviation RDW Coeff of Joey Plt Count MPV PT INR APTT PTT Ratio Sodium Potassium Chloride Carbon Dioxide Anion Gap BUN Creatinine Est Cr Clr Drug Dosing Est GFR ( Amer) Est GFR (Non-Af Amer) BUN/Creatinine Ratio Glucose POC Glucose 186 H 266 H Calcium (1) CKD (chronic kidney disease) Chronic kidney disease stage: unspecified stage Qualified Code(s): N18.9 - Chronic kidney disease, unspecified (2) Aortic stenosis Cardiac valve disease etiology: nonrheumatic Qualified Code(s): I35.0 - Nonrheumatic aortic (valve) stenosis
--- NOTE | 2020-01-08 12:28 | Hospitalist Progress Note ---
Date of Service January 08, 2020 Assessment & Plan (1) Atypical chest pain: no symptom since admission Appreciate input from cardiology, chest discomfort is atypical for angina Shortness of breath possibly secondary to decompensated CHF with systolic dysfunction Presented with volume overload- lower extremity swelling increased weight gain ,dyspnea on exertion Acute on chronic CHF with reduced systolic function(HFrEF) Patient was treated with IV Lasix, with adequate diuresis vol status appears to improve Home dose torsemide resumed Appreciate input from cardiology (2) Chronic atrial fibrillation: Remains rate controlled, Recent embolic CVA as patient was off anticoagulation for GI procedure INR subtherapeutic, on iv heparin bridge, INR remains subtherapeutic will need to stay in hospital for IV heparin bridge ( sub q lovenox contr aindicated due to advanced CKD /poor GFR ) goal INR 2-3 Acute renal failure on CKD stage IV: Creatinine elevated from baseline, possible secondary to IV Lasix IV diuresis discontinued, home torsemide resumed Repeat BMP in a.m., Follow NSAIDs, contrast studies Disposition: discharge home when INR theraputic Admission and Anticipated Discharge Date Admission Date: January 06, 2020 Subjective Patient experienced abdominal pain earlier today, symptom has resolved Tolerating diet Added bowel regimen for possible constipation No shortness of breath no chest pain or discomfort No cough no fever chills Physical Exam Constitutional: WD/WN, vitals as above no acute distress Eyes: sclerae not anicteric ENMT: external ear and nose normal, oropharynx normal Neck: trachea midline, no thyromegaly Respiratory: normal respiratory effort; no respiratory distress and no cough Auscultation: no rales and no wheezes Cardiovascular: Rate/Rhythm: regular rate and regular rhythm Extremities: + edema (Trace edema) Gastrointestinal (Abdomen): Percussion/Palpation: abdomen soft; abdomen nontender Musculoskeletal: no cyanosis or clubbing, extremities motor strength 5/5 Skin: no rashes, warm and dry Neurologic: PERRL, EOMI, accommodation nl, no face palsy, no dysarthria Psychiatric: A+Ox3, euthymic affect Results & Data Results & Data ([facility]) Vital Signs (Past 12 Hours) Vital Signs Temp Pulse Resp BP Pulse Ox 01/08/20 10:57 36.5 C 78 130/88 97 01/08/20 07:42 36.4 C L 70 17 148/90 H 96 01/08/20 04:30 36.4 C L 69 18 130/76 99
[2020-01-08] MEDS: TORSEMIDE 10 MG TAB PO SCH (13:15)
[2020-01-08] MEDS: WARFARIN SOD 7.5 MG TAB PO SCH (17:14)
[2020-01-08] MEDS: HEPARIN SODIUM/DEXTROSE 25,000 UNITS/500 ML BAG IV SCH (19:17)
[2020-01-08] MEDS: ROSUVASTATIN CALCIUM 20 MG TAB PO SCH (20:55)
[2020-01-09 06:28] LABS: INR 1.8 (0.9-1.1); Prothrombin Time 18.7 Seconds (9.0-12.0)
[2020-01-09 06:32] LABS: Partial Thromboplastin Time 55.7 Seconds (21.0-31.0)
[2020-01-09] MEDS: METOPROLOL SUCC 50MG EXT REL TAB PO SCH ×2 (08:00→20:21)
[2020-01-09] MEDS: CHOLECALCIFEROL 1,000 UNITS 25 MCG TAB PO SCH (08:00)
[2020-01-09] MEDS: FLUTICASONE/VILANTEROL 100/25MCG 14 PUFFS/INHALER INH SCH (08:01)
[2020-01-09] MEDS: ASPIRIN 81 MG ECTAB PO SCH (08:01)
[2020-01-09] MEDS: GABAPENTIN 100 MG CAP PO SCH ×3 (08:02→17:18)
[2020-01-09] MEDS: lisinopriL 10 MG TAB PO SCH (08:02)
[2020-01-09] MEDS: ISOSORBIDE DINITRATE 40 MG TAB PO SCH ×3 (08:02→17:18)
[2020-01-09] MEDS: PANTOprazole 40 MG TAB PO SCH (08:02)
[2020-01-09] MEDS: INSULIN ASPART 100 UNITS/ML 3 ML PEN SC SCH ×4 (08:03→20:20)
[2020-01-09] MEDS: INSULIN GLARGINE SOLOSTAR 100 UNITS/ML 3 ML PEN SC SCH (08:03)
[2020-01-09] MEDS: POLYETHYLENE (MIRALAX) 17 GM PACK PO SCH ×2 (08:03→08:06)
--- NOTE | 2020-01-09 11:56 | Cardiology Progress Note ---
Date of Service January 09, 2020 Assessment & Plan (1) Atypical chest pain: Patient is a very complex 65-year-old male with multiple issues as outlined above. He carries a longstanding history of atypical chest pain without obstructive coronary disease by prior evaluations. History is notable for hypertensive heart disease with diastolic and systolic heart failure, nonischemic cardiomyopathy and chronic renal failure Recent clinical course notable for hospitalization with acute Klebsiella cholangitis with positive blood cultures October 2019 with noted cholelithiasis and pancreatitis Recent course is notable for persistent atrial fibrillation since August of this year. Embolic stroke while off anticoagulation for endoscopy procedure in November. Current symptoms do not suggest acute cardiac ischemia Plan: Continue current medical therapies. Now on oral diuretic. BMP will be o rdered today renal function should be followed closely given recent increase in VENKATA inhibitor. Continue IV heparin until warfarin therapeutic. (2) Hypertensive heart disease with chronic diastolic congestive heart failure: Better controlled (3) CKD (chronic kidney disease): (4) Chronic atrial fibrillation: (5) Presence of combination internal cardiac defibrillator (ICD) and pacemaker: (6) CAD (coronary artery disease): (7) Aortic stenosis: (8) Acute CVA (cerebrovascular accident): Admission and Anticipated Discharge Date Admission Date: January 06, 2020 Subjective Patient seen and examined, chart, medications, telemetry reviewed. No chest pains or discomfort breathing improved. No worsening edema. INR still subtherapeutic Physical Exam Constitutional: WD/WN, vitals as above + obese; no acute distress Eyes: PERRL, conjunctivae normal, anicteric sclerae ENMT: external ear and nose normal, oropharynx normal Neck: trachea midline, no thyromegaly Respiratory: normal respiratory effort, lungs clear to auscultation Cardiovascular: Rate/Rhythm: regular rate and regular rhythm (Paced rhythm) Heart Sounds: normal S1, normal S2 and + murmur (Grade 3/6 harsh systolic murmur, no diastolic); no gallop Palpation: normal PMI Vessels: normal carotid upstroke and radial pulses present; no JVD and no carotid bruit Extremities: + edema (1-2+) Chest (Breasts): Chest: + pacemaker (No tenderness overlying pacemaker/defibrillator) Gastrointestinal (Abdomen): normal bowel sounds, soft, nontender, no hepatosplenomegaly Musculoskeletal: no cyanosis or clubbing, extremities motor strength 5/5 Skin: no rashes, warm and dry Neurologic: PERRL, EOMI, accommodation nl, no face palsy, no dysarthria Psychiatric: A+Ox3, euthymic affect Results & Data ([facility]) Vital Signs (Past 12 Hours) Vital Signs Temp Pulse Resp BP BP Pulse Ox 01/09/20 11:35 36.7 C 75 18 149/89 H 96 01/09/20 07:51 36.6 C 63 18 151/88 H 97 01/09/20 03:46 36.6 C 83 18 154/82 H 100 01/09/20 00:01 36.7 C 76 18 127/81 99 Laboratory Results Laboratory Results - last 24 hr 01/08/20 01/08/20 01/08/20 16:11 16:15 16:25 PT INR APTT PTT Ratio Glucose 271 H POC Glucose > 600 H* 302 H* 01/08/20 01/09/20 01/09/20 20:43 05:38 07:26 PT 18.7 H INR 1.8 H APTT 55.7 H* PTT Ratio 2.0 Glucose POC Glucose 186 H 174 H (1) CKD (chronic kidney disease) Chronic kidney disease stage: unspecified stage Qualified Code(s): N18.9 - Chronic kidney disease, unspecified (2) Aortic stenosis Cardiac valve disease etiology: nonrheumatic Qualified Code(s): I35.0 - Nonrheumatic aortic (valve) stenosis
--- NOTE | 2020-01-09 12:51 | Communication Note ---
Date of Service: January 09, 2020 Attending note: No further episode of chest pain or chest discomfort: No fever chills or cough INR subtherapeutic 1.8 On IV heparin bridge therapy Will increase Coumadin dose to 10 mg daily With INR in a.m. To discharge home tomorrow if INR 2, Bell Kay MD
[2020-01-09 13:00] LABS: BUN Creatinine Ratio 13.3 (10-20); Calcium 8.9 mg/dl (8.5-10.1); Creatinine Clr Calc Pharmacy 29.3 ml/min; Est GFR (Non-African American) 19.8; Potassium 4.3 mmol/L (3.5-5.1)
[2020-01-09] MEDS ORDERED: WARFARIN SOD 10 MG TAB PO SCH (16:00)
[2020-01-09] MEDS: HEPARIN SODIUM/DEXTROSE 25,000 UNITS/500 ML BAG IV SCH (17:22)
--- NOTE | 2020-01-09 17:43 | Hospitalist Progress Note ---
Date of Service January 09, 2020 Assessment & Plan (1) Atypical chest pain: no symptom since admission Appreciate input from cardiology, chest discomfort is atypical for angina Shortness of breath possibly secondary to decompensated CHF with systolic dysfunction Presented with volume overload- lower extremity swelling increased weight gain ,dyspnea on exertion Acute on chronic CHF with reduced systolic function(HFrEF) Patient was treated with IV Lasix, with adequate diuresis vol status appears to improve Home dose torsemide resumed Appreciate input from cardiology (2) Chronic atrial fibrillation: Remains rate controlled, Recent embolic CVA as patient was off anticoagulation for GI procedure INR subtherapeutic, on iv heparin bridge, INR remains subtherapeutic will need to stay in hospital for IV heparin bridge ( sub q lovenox contr aindicated due to advanced CKD /poor GFR ) goal INR 2-3 Acute renal failure on CKD stage IV: Creatinine elevated from baseline, possible secondary to IV Lasix IV diuresis discontinued, home torsemide resumed Repeat BMP in a.m., Follow NSAIDs, contrast studies Disposition: discharge home possible tomorrow if INR theraputic Admission and Anticipated Discharge Date Admission Date: January 06, 2020 Subjective no complain of SOB no fever or chills Physical Exam Constitutional: WD/WN, vitals as above no acute distress Eyes: sclerae not anicteric ENMT: external ear and nose normal, oropharynx normal Neck: trachea midline, no thyromegaly Respiratory: normal respiratory effort; no respiratory distress and no cough Auscultation: no rales and no wheezes Cardiovascular: Rate/Rhythm: regular rate and regular rhythm Extremities: + edema (Trace edema) Gastrointestinal (Abdomen): Percussion/Palpation: abdomen soft; abdomen nontender Musculoskeletal: no cyanosis or clubbing, extremities motor strength 5/5 Skin: no rashes, warm and dry Neurologic: PERRL, EOMI, accommodation nl, no face palsy, no dysarthria Psychiatric: A+Ox3, euthymic affect Results & Data Results & Data ([facility]) Vital Signs (Past 12 Hours) Vital Signs Temp Pulse Resp BP BP Pulse Ox 01/09/20 15:12 36.3 C L 87 19 164/97 H 97 01/09/20 11:35 36.7 C 75 18 149/89 H 96 01/09/20 07:51 36.6 C 63 18 151/88 H 97
[2020-01-09] MEDS: ROSUVASTATIN CALCIUM 20 MG TAB PO SCH (20:20)
[2020-01-10 05:56] LABS: Hematocrit (blood only) 36.2 % (42-52); Hemoglobin 11.1 g/dL (14.0-18.0); Mean Corpuscular Hemoglobin 25.8 pg (25-34); Mean Corpuscular Hgb Conc 30.7 g/dL (32-36); RDW Coefficient of Variation 15.7 % (11.5-14.5); RDW Standard Deviation 48.1 fL (36.4-46.3); Red Blood Count 4.31 M/uL (4.7-6.1); White Blood Count 4.95 K/uL (4.8-10.8)
[2020-01-10 06:20] LABS: INR 2.1 (0.9-1.1); Partial Thromboplastin Ratio 2.7
[2020-01-10 06:21] LABS: BUN Creatinine Ratio 13.6 (10-20); Calcium 9.2 mg/dl (8.5-10.1); Est GFR (African American) 25.5; Potassium 4.2 mmol/L (3.5-5.1)
[2020-01-10 06:23] LABS: Mean Platelet Volume 9.6 fL (7.4-10.4); Platelet Count 99 K/uL (130-400)
[2020-01-10 06:24] LABS: Platelet Estimate Decreased (Normal)
[2020-01-10 06:30] LABS: Partial Thromboplastin Time 74.1 Seconds (21.0-31.0)
[2020-01-10] MEDS: HEPARIN SODIUM/DEXTROSE 25,000 UNITS/500 ML BAG IV SCH ×2 (06:41→06:42)
[2020-01-10] MEDS: INSULIN ASPART 100 UNITS/ML 3 ML PEN SC SCH ×2 (08:03→12:19)
[2020-01-10] MEDS: INSULIN GLARGINE SOLOSTAR 100 UNITS/ML 3 ML PEN SC SCH (08:04)
[2020-01-10] MEDS: METOPROLOL SUCC 50MG EXT REL TAB PO SCH (08:05)
[2020-01-10] MEDS: TORSEMIDE 10 MG TAB PO SCH (08:05)
[2020-01-10] MEDS: lisinopriL 10 MG TAB PO SCH (08:06)
[2020-01-10] MEDS: PANTOprazole 40 MG TAB PO SCH (08:06)
[2020-01-10] MEDS: ISOSORBIDE DINITRATE 40 MG TAB PO SCH ×2 (08:06→12:20)
[2020-01-10] MEDS: CHOLECALCIFEROL 1,000 UNITS 25 MCG TAB PO SCH (08:07)
[2020-01-10] MEDS: POLYETHYLENE (MIRALAX) 17 GM PACK PO SCH (08:07)
[2020-01-10] MEDS: ASPIRIN 81 MG ECTAB PO SCH (08:07)
[2020-01-10] MEDS: GABAPENTIN 100 MG CAP PO SCH ×2 (08:07→12:20)
--- NOTE | 2020-01-10 08:07 | Communication Note ---
Date of Service: January 10, 2020 INR 2.1 today, DC IV heparin, patient will be discharged home later today Bell Kay MD
[2020-01-10] MEDS: FLUTICASONE/VILANTEROL 100/25MCG 14 PUFFS/INHALER INH SCH (08:08)
--- NOTE | 2020-01-10 10:43 | Cardiology Progress Note ---
Date of Service January 10, 2020 Assessment & Plan (1) Atypical chest pain: Patient is a very complex 65-year-old male with multiple issues as outlined above. He carries a longstanding history of atypical chest pain without obstructive coronary disease by prior evaluations. History is notable for hypertensive heart disease with diastolic and systolic heart failure, nonischemic cardiomyopathy and chronic renal failure Recent clinical course notable for hospitalization with acute Klebsiella cholangitis with positive blood cultures October 2019 with noted cholelithiasis and pancreatitis Recent course is notable for persistent atrial fibrillation since August of this year. Embolic stroke while off anticoagulation for endoscopy procedure in November. Current symptoms do not suggest acute cardiac ischemia Plan: Patient improved clinically after diuresis and weight loss. Would recomm end continuing torsemide at 10 mg daily. CHF instructions discussed once again including daily weights fluid and sodium restriction. All the medications to be continued with close clinical follow-up of anticoagulation through coag clinic (2) Hypertensive heart disease with chronic diastolic congestive heart failure: Better controlled (3) CKD (chronic kidney disease): (4) Chronic atrial fibrillation: (5) Presence of combination internal cardiac defibrillator (ICD) and pacemaker: (6) CAD (coronary artery disease): (7) Aortic stenosis: (8) Acute CVA (cerebrovascular accident): Admission and Anticipated Discharge Date Admission Date: January 06, 2020 Subjective Patient seen and examined, chart, medications, telemetry reviewed. Feels improved this morning. INR is now therapeutic. No chest pains or shortness of breath. No orthopnea. Weight down 4 kg from admission Review of Systems Review of Systems: All systems reviewed & are unremarkable except as noted in HPI & below Physical Exam Constitutional: WD/WN, vitals as above + obese; no acute distress Eyes: PERRL, conjunctivae normal, anicteric sclerae ENMT: external ear and nose normal, oropharynx normal Neck: trachea midline, no thyromegaly Respiratory: normal respiratory effort, lungs clear to auscultation Cardiovascular: Rate/Rhythm: regular rate and regular rhythm (Paced rhythm) Heart Sounds: normal S1, normal S2 and + murmur (Grade 3/6 harsh systolic murmur, no diastolic); no gallop Palpation: normal PMI Vessels: normal carotid upstroke and radial pulses present; no JVD and no carotid bruit Extremities: + edema (1-2+) Chest (Breasts): Chest: + pacemaker (No tenderness overlying pa cemaker/defibrillator) Gastrointestinal (Abdomen): normal bowel sounds, soft, nontender, no hepatosplenomegaly Musculoskeletal: no cyanosis or clubbing, extremities motor strength 5/5 Skin: no rashes, warm and dry Neurologic: PERRL, EOMI, accommodation nl, no face palsy, no dysarthria Psychiatric: A+Ox3, euthymic affect Results & Data ([facility]) Vital Signs (Past 12 Hours) Vital Signs Temp Pulse Pulse Resp BP BP Pulse Ox 01/10/20 07:44 36.6 C 65 18 127/78 98 01/10/20 07:35 74 01/10/20 03:45 36.6 C 62 18 138/82 99 01/10/20 01:02 67 01/09/20 23:31 36.5 C 66 18 142/76 H 99 Laboratory Results Laboratory Results - last 24 hr 01/09/20 01/09/20 01/09/20 05:45 11:26 17:24 WBC RBC Hgb Hct MCV MCH MCHC RDW Std Deviation RDW Coeff of Joey Plt Count MPV Platelet Estimate PT INR APTT PTT Ratio Sodium 143 Potassium 4.3 Chloride 108 H Carbon Dioxide 26 Anion Gap 9.0 BUN 42 H Creatinine 3.11 H Est Cr Clr Drug Dosing 29.3 Est GFR ( Amer) 23.0 Est GFR (Non-Af Amer) 19.8 BUN/Creatinine Ratio 13.3 Glucose 162 H POC Glucose 241 H 199 H Calcium 8.9 01/09/20 01/10/20 01/10/20 20:15 05:38 05:38 WBC RBC Hgb Hct MCV MCH MCHC RDW Std Deviation RDW Coeff of Joey Plt Count MPV Platelet Estimate PT 21.0 H INR 2.1 H APTT 74.1 H* PTT Ratio 2.7 Sodium 143 Potassium 4.2 Chloride 108 H Carbon Dioxide 27 Anion Gap 8.0 BUN 39 H Creatinine 2.85 H Est Cr Clr Drug Dosing 32.0 Est GFR ( Amer) 25.5 Est GFR (Non-Af Amer) 22.0 BUN/Creatinine Ratio 13.6 Glucose 109 H POC Glucose 128 H Calcium 9.2 01/10/20 01/10/20 05:38 07:35 WBC 4.95 RBC 4.31 L Hgb 11.1 L Hct 36.2 L MCV 84.0 MCH 25.8 MCHC 30.7 L RDW Std Deviation 48.1 H RDW Coeff of Joey 15.7 H Plt Count 99 L MPV 9.6 Platelet Estimate Decreased L PT INR APTT PTT Ratio Sodium Potassium Chloride Carbon Dioxide Anion Gap BUN Creatinine Est Cr Clr Drug Dosing Est GFR ( Amer) Est GFR (Non-Af Amer) BUN/Creatinine Ratio Glucose POC Glucose 118 H Calcium (1) CKD (chronic kidney disease) Chronic kidney disease stage: unspecified stage Qualified Code(s): N18.9 - Chronic kidney disease, unspecified (2) Aortic stenosis Cardiac valve disease etiology: nonrheumatic Qualified Code(s): I35.0 - Nonrheumatic aortic (valve) stenosis
--- NOTE | 2020-01-10 15:45 | Discharge Summary ---
Date of Service January 10, 2020 Admission HPI Per Admitting Provider [facility], [place] History and Physical Report Signed Patient: NIRANJAN VILLALTA Date: 01/05/20 MR#: [id number] Phy: Bell Kay MD Acct ID:[id number] Phy: Mirlande Melton MD Date: [id number] Phy: Age: 65Location: 2S Sex: M Room/Bed: [facility] cc: ~ DICTATED BY: Yovanny Desai MD DATE OF ADMISSION: 01/05/2020 CHIEF COMPLAINT: Chest pain, shortness of breath. HISTORY OF PRESENT ILLNESS: This is a 65-year-old male with past medical history significant for type 2 diabetes, hyperlipidemia, history of pancreatitis, history of COPD, history of sleep apnea, nocturnal hypoxia, history of mild persistent asthma without complication, history of multiple pulmonary nodules, chronic sinusitis, chronic systolic and diastolic CHF, atrial fibrillation, moderate aortic stenosis, hypertension, left bundle branch block, pulmonary hypertension, peripheral vascular disease, obesity, gastroparesis, status post AICD. The patient recently was in the hospital with aphasia and found to have acute ischemic left middle cerebral artery MCA stroke, on subtherapeutic INR. At that time, could not do MRI scan because of the AICD, TPA was not given. CTA of the neck 75% stenosis of the distal right vertebral artery and 40% stenosis of the distal left vertebral artery. At that time, he had subtherapeutic INR due to holding of Coumadin for recent EGD. The patient's dysarthria improved and discharged home with outpatient speech therapy. The patient followed with neurology. Comes here because of chest pain, shortness of breath. The patient says since today afternoon, he noticed chest pressure like feelings, slowly got progressively worse and also with some shortness of breath. The pain was on and off, pressure like feeling. It happened while sitting on the couch and was 8/10 in severity. Before he came to the hospital because of his shortness of breath, he took extra dose of torsemide before he started to come to the hospital. While he was coming to the hospital, he felt nauseous and some chills that got resolved now. Was placed on nitro paste in the ER, his chest pressure improved. Denies any headache, no dizziness, no blurred vision, no earache, no runny nose, no sore throat, no loss of sense of smell or taste. He says he is swallowing okay. Speech is improving slowly. His speech is pressured. Denies any cough, no vomiting, has some abdominal discomfort and denies any diarrhea or constipation, no blood in the stools or black stools. Normal bladder movements. No hematuria or burning micturition. He says he sleeps okay with the CPAP. He is ambulating slowly at home. He has some weakness in his legs. Currently resting comfortably and hemodynamically stable, saturating okay on room air. is in the room. Principal Diagnosis CHF Volume over load Chronic A. fib/therapeutic INR History of embolic CVA Discharge Exam Constitutional WD/WN, vitals as above no acute distress Eyes sclerae not anicteric ENMT external ear and nose normal, oropharynx normal Neck trachea midline, no thyromegaly Respiratory normal respiratory effort; no respiratory distress and no cough Auscultation: no rales and no wheezes Cardiovascular Rate/Rhythm: regular rate and regular rhythm Extremities: + edema (Trace edema) Gastrointestinal (Abdomen) Percussion/Palpation: abdomen soft; abdomen nontender Musculoskeletal no cyanosis or clubbing, extremities motor strength 5/5 Skin no rashes, warm and dry Neurologic PERRL, EOMI, accommodation nl, no face palsy, no dysarthria Psychiatric A+Ox3, euthymic affect Discharge Data Allergies Allergy/AdvReac Type Severity Reaction Status Date / Time No Known Allergies Allergy Verified 01/05/20 22:22 Consultations 01/05/20 22:49 ED Decision to Admit Stat 01/06/20 00:05 Consult Case Management - Discharge Planning Routine 01/06/20 08:00 Consult Cardiology Routine Diabetes Follow up Diabetes Follow-up Needed for HgbA1c >9% Hospital Course (1) Atypical chest pain: no symptom since admission Appreciate input from cardiology, chest discomfort is atypical for angina Shortness of breath possibly secondary to decompensated CHF with systolic dysfunction Presented with volume overload- lower extremity swelling increased weight gain ,dyspnea on exertion Acute on chronic CHF with reduced systolic function(HFrEF) Patient was treated with IV Lasix, with adequate diuresis vol status appears to improve Home dose torsemide resumed Appreciate input from cardiology (2) Chronic atrial fibrillation: Remains rate controlled, Recent embolic CVA as patient was off anticoagulation for GI procedure INR subtherapeutic, on iv heparin bridge, INR > 2 today IV heparin D/jane cont Coumadin Acute renal failure on CKD stage IV: Creatinine elevated from baseline, possible secondary to IV Lasix IV diuresis discontinued, home torsemide resumed dose changed to 10 mg PO daily Repeat BMP in a week avoid NSAIDs, contrast studies Disposition: stable to be discharged home Total Time Total Time Spent Total Time Spent (In Minutes): 35 mins Discharge Plan Discharge Items Patient Disposition: Home - Home Health Services Reason For Visit: SOB, CHEST PAIN Discharge Diagnosis: CHF Volume over load Chronic A. fib/therapeutic INR History of embolic CVA Condition on Discharge: Fair Activity: Resume your previous activity Non-emergency contact: Primary Care Provider Call non-emergency contact if: you have any medication questions Follow-up/Referrals: Mirlande Melton MD [Primary Care Provider] - 01/13/20 11:20 am (Date & Time 01/13/2020 11:20 AM Provider Stella Gaines MD Department Internal Medicine [facility] ) Diet: Low Sodium (2gm) Addtl Attending Provider Instructions: Call your Primary Care doctor if any of the following symptoms or problems start or get worse: * Shortness of breath or difficulty breathing * Wake up at night short of breath * Chest pain * Cough * Swelling of your hands, feet, or legs * More fatigued or tired with your normal activity * Palpitations - sudden fast heart beats WEIGHT * Weigh yourself every morning after using the bathroom. * Use the same scale. * Wear the same amount of clothing. * Write your weight down on a chart. * Call your Primary Care doctor if you gain more than 2-3 pounds in 1-2 days. MEDICATIONS * Use this discharge instruction sheet for medication instructions. * Take your medications at the time your doctor ordered. * Do not skip a dose of your medicines. * If you miss a dose of medicine, take it as soon as possible, but DO NOT DOUBLE A DOSE. * Read your medicine information when you get home. * Know all of the side effects of your medicine. If in doubt, ask your pharmacist * Call your Primary Care doctor's office if you have any side effects. * Be sure all of your doctors know what medicine and herbs you take (including cold, flu, and herbal medicine). Take the following with you to your follow-up doctor appointments: * Weight Chart * Medication List * List of questions Do not drink excessive alcohol, beer or wine. Pending Studies at Discharge: No Stand-Alone Forms: My [facility] [employer], Smoking Cessation Medications and DC Order Prescriptions: New warfarin 10 mg Tablet 10 mg PO MoFr@1600 Qty: 30 RF: 0 warfarin 7.5 mg tablet 7.5 mg PO UD Qty: 30 RF: 0 torsemide 10 mg Tablet 10 mg PO DAILY 30 Days Qty: 30 RF: 3 Continued isosorbide dinitrate 10 mg Tablet 30 mg PO TIDM RF: 0 metoprolol succinate [Toprol XL] 100 mg Tablet Extended Release 24 Hr 100 mg PO DAILY RF: 0 aspirin 81 mg Tablet,Delayed Release (Dr/Ec) 81 mg PO DAILY RF: 0 pantoprazole [Protonix] 40 mg Tablet,Delayed Release (Dr/Ec) 40 mg PO DAILY RF: 0 rosuvastatin [Crestor] 40 mg Tablet 40 mg PO HS RF: 0 Lantus Solostar U-100 Insulin 100 unit/mL (3 mL) Insulin Pen 75 units SUBCUT DAILY RF: 0 cholecalciferol (vitamin D3) [Vitamin D3] 2,000 unit Capsule 2,000 unit PO DAILY RF: 0 hydralazine 25 mg Tablet 75 mg PO TID RF: 0 fluticasone propion-salmeterol [Advair Diskus] 500-50 mcg/dose Blister With Device 1 inh INHALATION BID RF: 0 gabapentin 100 mg Capsule 100 mg PO TIDM RF: 0 ipratropium-albuterol 0.5 mg-3 mg(2.5 mg base)/3 mL Solution For Nebulization 3 ml INHALATION QID PRN (Reason: Shortness Of Breath Or Wheezing) RF: 0 albuterol sulfate [ProAir HFA] 90 mcg/actuation Hfa Aerosol Inhaler 2 puff INHALATION Q4H PRN (Reason: Shortness Of Breath Or Wheezing) RF: 0 fluticasone propionate [Flonase Allergy Relief] 50 mcg/actuation [place],Suspension 2 spray INTRANASAL DAILY PRN (Reason: Nasal Congestion) RF: 0 insulin lispro [Humalog KwikPen Insulin] 100 unit/mL Insulin Pen See Rx Instructions .ROUTE .COMPLEX RF: 0 Vitron-C 65 mg iron- 125 mg Tablet,Delayed Release (Dr/Ec) 1 tab PO BID RF: 0 Changed lisinopril 5 mg Tablet 10 mg PO DAILY Qty: 0 RF: 0 Discontinued torsemide 10 mg tablet 10 mg PO [id number] RF: 0 warfarin 5 mg tablet See Rx Instructions .ROUTE .COMPLEX RF: 0 Discharge Orders: Discharge Order (Routine); Ordered 01/10/20 Ordered By: Bell Fabian/Other Patient Handouts: Tips for Using Less Salt, Low-Salt Choices, Heart Failure Dc, Low Salt Diet Dc Admission Data Admit Date/Time: 01/06/20 18:08 Attending Provider: Bell Kay Admit Provider: Bell Kay Primary Care Provider: Mirlande Melton Other Providers: Yovanny Desai ; Pillo Graves Other Interventions: Discharge Summary Assessment (RN) Last Done: 01/10/20 11:43
[2020-01-11] MEDS ORDERED: TORSEMIDE 10 MG TAB PO SCH (09:00)
== END 2020-01-10 13:28 | disposition home health service (06) | DRG 291 ==
LOC: 2S 20:31 → ED 20:31 → 2S 01-06 00:03
DX: E11.22 Type 2 diabetes mellitus with diabetic chronic kidney disease; Z95.810 Presence of automatic (implantable) cardiac defibrillator; Z86.73 Personal history of transient ischemic attack (TIA), and cerebral infarction without residual deficits; N18.4 Chronic kidney disease, stage 4 (severe); I50.43 Acute on chronic combined systolic (congestive) and diastolic (congestive) heart failure; E11.51 Type 2 diabetes mellitus with diabetic peripheral angiopathy without gangrene; Z79.899 Other long term (current) drug therapy; I25.10 Atherosclerotic heart disease of native coronary artery without angina pectoris; E78.5 Hyperlipidemia, unspecified; I35.0 Nonrheumatic aortic (valve) stenosis; Z79.01 Long term (current) use of anticoagulants; I13.0 Hypertensive heart and chronic kidney disease with heart failure and stage 1 through stage 4 chronic kidney disease, or unspecified chronic kidney disease; N17.9 Acute kidney failure, unspecified; G47.33 Obstructive sleep apnea (adult) (pediatric); I48.0 Paroxysmal atrial fibrillation; Z79.82 Long term (current) use of aspirin; Z79.4 Long term (current) use of insulin; K21.9 Gastro-esophageal reflux disease without esophagitis

== ENCOUNTER 2020-02-04 04:43 | Inpatient (IN) ==
[2020-02-04] MEDS ORDERED: ALBUTEROL HFA 8 GM INHALER INH ONE (04:51)
[2020-02-04] MEDS ORDERED: DEXAMETHASONE SOD INJ 10 MG/ML VIAL IV ONE (04:51)
[2020-02-04] MEDS ORDERED: ACETAMINOPHEN 500 MG TAB PO STA (04:53)
--- NOTE | 2020-02-04 05:01 | Emergency Department Note ---
History of Present Illness General Chief complaint: Illness Stated complaint: CHILLS/NAUSEA/FEVER/MYALGIA Time Seen by Provider: 02/04/20 04:50 History of Present Illness This 65-year-old COPD asthmatic presents to the ER complaining of cough shortness of breath and fever for the past day Location: Chest Quality: Hard to breathe Severity: Moderate Duration: Yesterday Timing: Started yesterday Context: Patient was concerned and came in Modifying factors: better with rest; worse with activity No known Covid exposures. His works at a [employer], [employer]. She tested negative recently. Patient denies loss of taste, loss of smell, abdominal pain, neck stiffness, sore throat. Home Medications Home Medications Medication Instructions Recorded Confirmed Type Lantus Solostar U-100 Insulin 75 units SUBCUT DAILY 02/05/18 02/04/20 History aspirin 81 mg PO DAILY 02/05/18 02/04/20 History cholecalciferol (vitamin D3) 2,000 unit PO DAILY 02/05/18 02/04/20 History [Vitamin D3] isosorbide dinitrate 30 mg PO TIDM 02/05/18 02/04/20 History metoprolol succinate [Toprol XL] 100 mg PO DAILY 02/05/18 02/04/20 History pantoprazole [Protonix] 40 mg PO DAILY 02/05/18 02/04/20 History rosuvastatin [Crestor] 40 mg PO HS 02/05/18 02/04/20 History gabapentin 100 mg PO TIDM 05/14/18 02/04/20 History albuterol sulfate [ProAir HFA] 2 puff INHALATION Q4H PRN 08/01/18 02/04/20 History fluticasone propionate [Flonase 2 spray INTRANASAL DAILY PRN 08/01/18 02/04/20 History Allergy Relief] ipratropium-albuterol 3 ml INHALATION QID PRN 08/01/18 02/04/20 History Vitron-C 1 tab PO BID 06/05/19 02/04/20 History insulin lispro [Humalog KwikPen See Rx Instructions .ROUTE .COMPLEX 06/05/19 02/04/20 History Insulin] hydralazine 75 mg PO TID 12/18/19 02/04/20 History lisinopril 10 mg PO DAILY #0 tab 01/10/20 02/04/20 Rx torsemide 10 mg PO DAILY 30 Days #30 tab 01/10/20 02/04/20 Rx warfarin 7.5 mg PO UD #30 tab 01/10/20 02/04/20 Rx warfarin 10 mg PO MoFr@1600 #30 tab 01/10/20 02/04/20 Rx fluticasone propion-salmeterol 1 inh INHALATION BID 02/04/20 02/04/20 History [Wixela Inhub] Allergies Allergy/AdvReac Type Severity Reaction Status Date / Time No Known Allergies Allergy Verified 02/04/20 05:06 Past Med/Surg History Medical History Aortic stenosis Asthma Atrial fibrillation on chronic anticoagulation CAD (coronary artery disease) "nonobstructive" Chronic anemia Chronic systolic (congestive) heart failure Diabetic neuropathy DM type 2 (diabetes mellitus, type 2) Dyslipidemia GERD (gastroesophageal reflux disease) Hypertension LBBB (left bundle branch block) Nocturnal hypoxia on 2L NC O2 HS PAF (paroxysmal atrial fibrillation) Thrombocytopenia Surgical History H/O cardiac catheterization Non nonobstructive CAD on 2017 cardiac cath Presence of combination internal cardiac defibrillator (ICD) and pacemaker Family History Other Diabetes Hypertension Lung cancer Social History Smoking Status: Unknown if ever smoked Tobacco Type: Smokeless Tobacco (Dip or Chew) Second Hand Exposure: No; Hx Alcohol Use: No Hx Substance Use: No Preferred Language: Welsh Communication Ability: Effective Visual Impairment: Limited Propulsion Motor And Generator Repairer Required: No Beliefs That Will Affect Care: None marital status: Current Living Situation: Spouse current occupational status: retired 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 Feels Safe at Home: Yes Assistive Devices: CPAP Review of Systems A total of 10 systems reviewed and were otherwise negative Physical Exam Vital Signs Vital Signs - 24 hr 02/04/20 04:32 02/04/20 04:51 02/04/20 06:32 Temperature 39.4 C H Temperature Source Oral Pulse Rate 111 H Pulse Rate [Apical] 92 H Respiratory Rate 20 25 H Respiratory Effort / Characteristics SOB on Exertion SOB on Exertion Respiratory Depth Normal Normal Blood Pressure 160/110 H Blood Pressure [Right Arm] 120/80 Blood Pressure Mean 126 Blood Pressure Mean [Right Arm] 93 Blood Pressure Position Lying Pulse Oximetry 99 98 97 Oxygen Delivery Method Nasal Cannula Nasal Cannula Nasal Cannula Oxygen Flow Rate 4 4 4 Sepsis Recent Fever Within 48 Hours Yes Sepsis New/Unexplained Change in Mental Status No Sepsis Action Taken by Nursing Adv Provider Notified VITALS: Vitals are noted on the nurse's note and reviewed by myself. Vital signs febrile with low pulse ox. GENERAL: Elderly male working to breathe mildly ill-appearing. SKIN: The skin was without rashes, erythema, edema, or bruising. There is no tenting of the skin. Capillary reflex less than 2 seconds. HEAD: Normocephalic atraumatic. EARS: External auditory canals clear, tympanic membranes pearly morris without erythema or effusion bilaterally. EYES: Pupils equal round and reactive to light and accommodation. Conjunctivae without injection, sclerae without icterus. Extraocular movements intact. NOSE: Patent, turbinates without inflammation or discharge. No sinus tenderness. MOUTH: Mucous membranes moist. Pharynx without erythema or exudate. Uvula midline. Airway patent. Tongue does not deviate. NECK: Supple without nuchal rigidity. No lymphadenopathy. No thyromegaly. Cervical spine is nontender. No JVD. HEART: Irregularly irregular LUNGS: Diffuse end expiratory wheezes, No retractions or accessory muscle use. ABDOMEN: Positive bowel sounds x 4. Normal tympanic percussion. Soft, nontender, without masses or organomegaly. Baumann sign negative. No guarding or rebound tenderness. No CVA tenderness MUSCULOSKELETAL: No muscle atrophy, erythema, or edema noted. NEURO: Patient was alert and oriented to person place and time. Normal sensation to light and sharp touch. No focal neurological deficits. Course Administered Medications Discontinued Medications Acetaminophen (Acetaminophen 500 Mg Tab) 1,000 mg PO NOW STA Stop: 02/04/20 04:54 Last Admin: 02/04/20 05:47 Dose: 1,000 mg Documented by: [id number] Albuterol (Albuterol Hfa 8 Gm Inhaler) 2 puffs INH NOW ONE Stop: 02/04/20 04:52 Last Admin: 02/04/20 05:46 Dose: 2 puffs Documented by: [id number] Dexamethasone (Dexamethasone Sod Inj 10 Mg/Ml Vial) 10 mg IV NOW ONE Stop: 02/04/20 04:52 Last Admin: 02/04/20 05:47 Dose: 10 mg Documented by: [id number] Piperacillin Sod/Tazobactam Sod (Zosyn) 4.5 gm in 120 mls @ 240 mls/hr IV NOW ONE Stop: 02/04/20 05:54 Last Infusion: 02/04/20 06:28 Dose: 0 mls/hr Documented by: [id number] Admin: 02/04/20 05:46 Dose: 240 mls/hr Documented by: [id number] Sodium Chloride (Nss 1000ml) 500 mls @ 999 mls/hr IV .Q31M ONE Stop: 02/04/20 06:10 Last Infusion: 02/04/20 06:28 Dose: 0 mls/hr Documented by: [id number] Admin: 02/04/20 05:47 Dose: 999 mls/hr Documented by: [id number] Medical Decision Making Medical Records Attestation: I reviewed the patient's medical records. Home Medications Current Medication List: was personally reviewed by me Laboratory Data Attestation: I reviewed the patient's lab results. Result diagrams: 02/04/20 05:04 02/04/20 05:04 Lab Results 02/04/20 02/04/20 02/04/20 Range/Units 04:55 04:55 05:04 WBC 10.65 (4.8-10.8) K/uL RBC 4.49 L (4.7-6.1) M/uL Hgb 11.8 L (14.0-18.0) g/dL Hct 37.6 L (42-52) % MCV 83.7 (80-100) fL MCH 26.3 (25-34) pg MCHC 31.4 L (32-36) g/dL RDW Std Deviation 48.5 H (36.4-46.3) fL RDW Coeff of Joey 15.9 H (11.5-14.5) % Plt Count 124 L (130-400) K/uL MPV 9.6 (7.4-10.4) fL Immature Gran % (Auto) 0.2 % Neut % (Auto) 86.8 % Lymph % (Auto) 8.0 % [place] % (Auto) 4.2 % Eos % (Auto) 0.6 % Baso % (Auto) 0.2 % Neut # (Auto) 9.25 H (1.4-6.5) K/uL Lymph # (Auto) 0.85 L (1.2-3.4) K/uL [place] # (Auto) 0.45 (0.11-0.59) K/uL Eos # (Auto) 0.06 (0-0.5) K/uL Baso # (Auto) 0.02 (0-0.2) K/uL Immature Gran # (Auto) 0.02 (0.00-0.02) K/uL PT (9.0-12.0) Seconds INR (0.9-1.1) APTT (21.0-31.0) Seconds PTT Ratio Sodium (136-145) mmol/L Potassium (3.5-5.1) mmol/L Chloride (98-107) mmol/L Carbon Dioxide (21-32) mmol/L Anion Gap (3-11) BUN (7-18) mg/dl Creatinine (0.6-1.4) mg/dl Est Cr Clr Drug Dosing Est GFR ( Amer) Est GFR (Non-Af Amer) BUN/Creatinine Ratio (10-20) Glucose (70-99) mg/dl Lactate (0.4-2.0) mmol/L Calcium (8.5-10.1) mg/dl Magnesium (1.8-2.4) mg/dl Total Bilirubin (0.2-1) mg/dl AST (15-37) U/L ALT (12-78) U/L Alkaline Phosphatase (45-117) U/L Troponin I (0-0.045) ng/ml Total Protein (6.4-8.2) gm/dl Albumin (3.4-5.0) gm/dl Globulin (2.5-4.0) gm/dl Albumin/Globulin Ratio (0.9-2) Procalcitonin (0-0.5) ng/ml COVID-19 Eval Order Covid19 Done at [facility] COVID-19 PCR NEGATIVE (Negative) 02/04/20 02/04/20 02/04/20 Range/Units 05:04 05:04 05:04 WBC (4.8-10.8) K/uL RBC (4.7-6.1) M/uL Hgb (14.0-18.0) g/dL Hct (42-52) % MCV (80-100) fL MCH (25-34) pg MCHC (32-36) g/dL RDW Std Deviation (36.4-46.3) fL RDW Coeff of Joey (11.5-14.5) % Plt Count (130-400) K/uL MPV (7.4-10.4) fL Immature Gran % (Auto) % Neut % (Auto) % Lymph % (Auto) % [place] % (Auto) % Eos % (Auto) % Baso % (Auto) % Neut # (Auto) (1.4-6.5) K/uL Lymph # (Auto) (1.2-3.4) K/uL [place] # (Auto) (0.11-0.59) K/uL Eos # (Auto) (0-0.5) K/uL Baso # (Auto) (0-0.2) K/uL Immature Gran # (Auto) (0.00-0.02) K/uL PT 21.2 H (9.0-12.0) Seconds INR 2.1 H (0.9-1.1) APTT 30.3 (21.0-31.0) Seconds PTT Ratio 1.1 Sodium 138 (136-145) mmol/L Potassium 4.3 (3.5-5.1) mmol/L Chloride 102 (98-107) mmol/L Carbon Dioxide 27 (21-32) mmol/L Anion Gap 9.0 (3-11) BUN 53 H (7-18) mg/dl Creatinine 3.00 H (0.6-1.4) mg/dl Est Cr Clr Drug Dosing Not Reportable Est GFR ( Amer) 24.0 Est GFR (Non-Af Amer) 20.7 BUN/Creatinine Ratio 17.7 (10-20) Glucose 252 H (70-99) mg/dl Lactate 1.4 (0.4-2.0) mmol/L Calcium 9.5 (8.5-10.1) mg/dl Magnesium 2.1 (1.8-2.4) mg/dl Total Bilirubin 1.2 H (0.2-1) mg/dl AST 89 H (15-37) U/L ALT 86 H (12-78) U/L Alkaline Phosphatase 240 H (45-117) U/L Troponin I 0.060 H* (0-0.045) ng/ml Total Protein 7.5 (6.4-8.2) gm/dl Albumin 3.7 (3.4-5.0) gm/dl Globulin 3.8 (2.5-4.0) gm/dl Albumin/Globulin Ratio 1.0 (0.9-2) Procalcitonin (0-0.5) ng/ml COVID-19 Eval Order COVID-19 PCR (Negative) 02/04/20 Range/Units 05:04 WBC (4.8-10.8) K/uL RBC (4.7-6.1) M/uL Hgb (14.0-18.0) g/dL Hct (42-52) % MCV (80-100) fL MCH (25-34) pg MCHC (32-36) g/dL RDW Std Deviation (36.4-46.3) fL RDW Coeff of Joey (11.5-14.5) % Plt Count (130-400) K/uL MPV (7.4-10.4) fL Immature Gran % (Auto) % Neut % (Auto) % Lymph % (Auto) % [place] % (Auto) % Eos % (Auto) % Baso % (Auto) % Neut # (Auto) (1.4-6.5) K/uL Lymph # (Auto) (1.2-3.4) K/uL [place] # (Auto) (0.11-0.59) K/uL Eos # (Auto) (0-0.5) K/uL Baso # (Auto) (0-0.2) K/uL Immature Gran # (Auto) (0.00-0.02) K/uL PT (9.0-12.0) Seconds INR (0.9-1.1) APTT (21.0-31.0) Seconds PTT Ratio Sodium (136-145) mmol/L Potassium (3.5-5.1) mmol/L Chloride (98-107) mmol/L Carbon Dioxide (21-32) mmol/L Anion Gap (3-11) BUN (7-18) mg/dl Creatinine (0.6-1.4) mg/dl Est Cr Clr Drug Dosing Est GFR ( Amer) Est GFR (Non-Af Amer) BUN/Creatinine Ratio (10-20) Glucose (70-99) mg/dl Lactate (0.4-2.0) mmol/L Calcium (8.5-10.1) mg/dl Magnesium (1.8-2.4) mg/dl Total Bilirubin (0.2-1) mg/dl AST (15-37) U/L ALT (12-78) U/L Alkaline Phosphatase (45-117) U/L Troponin I (0-0.045) ng/ml Total Protein (6.4-8.2) gm/dl Albumin (3.4-5.0) gm/dl Globulin (2.5-4.0) gm/dl Albumin/Globulin Ratio (0.9-2) Procalcitonin 0.21 (0-0.5) ng/ml COVID-19 Eval Order COVID-19 PCR (Negative) Imaging Data Attestation: I personally reviewed and interpreted this imaging study as follows: MDM Narrative Prior records/ancillary studies reviewed. Triage Nursing notes reviewed. Additional history obtained from EMS. The patient's history was concerning for fever. Differential diagnosis: Etiologies such as viral syndrome, otitis, pharyngitis, pneumonia, influenza, meningitis, urinary tract infection, sepsis, bacteremia, as well as others were entertained. Physical examination: As above ER treatment provided: An order was placed for continuous cardiac monitoring. The monitor shows a rate of 60-1 20 with a A. fib rhythm. Decadron, albuterol, Zosyn, IV fluids On reassessment the patient felt better. Diagnostics interpreted by me: ECG: Ordered for dyspnea EKG: EKG: Left bundle branch block, left axis deviation, rate of 110. Impression left bundle branch block rate of 110 interpreted by myself The labs revealed stable H&H Mildly elevated LFTs Stable creatinine per chart review Mild hyperglycemia without DKA Blood cultures pending Therapeutic INR Chronically elevated troponin per chart review Imaging studies: Chest x-ray with pulmonary congestion and possible right lower lobe pneumonia per my interpretation Consultation: A consultation was placed with Dr. Desai. The case was discussed and diagnostics were reviewed. The patient was evaluated in the ER for further treatment. This appears to be consistent with pneumonia. Patient was started antibiotics. Medicine was consulted. Patient will be admitted. Patient is agreeable.. By the evaluation outlined above emergent etiologies such as otitis, pharyngitis, meningitis, urinary tract infection, as well as others were deemed relatively unlikely. The pt informed about the findings as listed above. All questions were answered and pleased with the treatment. The chart was completed utilizing Seriously Speech voice recognition software. Grammatical errors, random word insertions, pronoun errors, and incomplete sentences are an occassional consequence of this system due to software limitations, ambient noise, and hardware issues. Any formal questions or concerns about the content, text, or information contained within the body of this dictation should be directly addressed to the physician registered nurse first assistant for clarification. Impression & Plan Pneumonia Discharge Plan Visit Data Chief Complaint: Illness Stated Complaint: CHILLS/NAUSEA/FEVER/MYALGIA ED Provider: Dank Viera ED Midlevel Provider: Dipika Mireles Discharge Problem: Pneumonia Patient Disposition: Being Evaluated by Hospitalist Condition: Fair Forms Stand Alone Forms: [facility] Prescriptions Prescriptions: No Action isosorbide dinitrate 10 mg Tablet 30 mg PO TIDM RF: 0 metoprolol succinate [Toprol XL] 100 mg Tablet Extended Release 24 Hr 100 mg PO DAILY RF: 0 aspirin 81 mg Tablet,Delayed Release (Dr/Ec) 81 mg PO DAILY RF: 0 pantoprazole [Protonix] 40 mg Tablet,Delayed Release (Dr/Ec) 40 mg PO DAILY RF: 0 rosuvastatin [Crestor] 40 mg Tablet 40 mg PO HS RF: 0 Lantus Solostar U-100 Insulin 100 unit/mL (3 mL) Insulin Pen 75 units SUBCUT DAILY RF: 0 cholecalciferol (vitamin D3) [Vitamin D3] 2,000 unit Capsule 2,000 unit PO DAILY RF: 0 hydralazine 25 mg Tablet 75 mg PO TID RF: 0 lisinopril 5 mg Tablet 10 mg PO DAILY Qty: 0 RF: 0 warfarin 10 mg Tablet 10 mg PO MoFr@1600 Qty: 30 RF: 0 warfarin 7.5 mg tablet 7.5 mg PO UD Qty: 30 RF: 0 torsemide 10 mg Tablet 10 mg PO DAILY 30 Days Qty: 30 RF: 3 gabapentin 100 mg Capsule 100 mg PO TIDM RF: 0 ipratropium-albuterol 0.5 mg-3 mg(2.5 mg base)/3 mL Solution For Nebulization 3 ml INHALATION QID PRN (Reason: Shortness Of Breath Or Wheezing) RF: 0 albuterol sulfate [ProAir HFA] 90 mcg/actuation Hfa Aerosol Inhaler 2 puff INHALATION Q4H PRN (Reason: Shortness Of Breath Or Wheezing) RF: 0 fluticasone propionate [Flonase Allergy Relief] 50 mcg/actuation [place],Suspension 2 spray INTRANASAL DAILY PRN (Reason: Nasal Congestion) RF: 0 insulin lispro [Humalog KwikPen Insulin] 100 unit/mL Insulin Pen See Rx Instructions .ROUTE .COMPLEX RF: 0 Vitron-C 65 mg iron- 125 mg Tablet,Delayed Release (Dr/Ec) 1 tab PO BID RF: 0 fluticasone propion-salmeterol [Wixela Inhub] 500-50 mcg/dose blister with device 1 inh inhalation BID RF: 0 Referrals Referrals: Mirlande Melton MD [Primary Care Provider] - Discharge Problem: Pneumonia Qualifiers: Pneumonia type: due to unspecified organism Laterality: right Lung location: lower lobe of lung Qualified Code(s): J18.9 - Pneumonia, unspecified organism
--- NOTE | 2020-02-04 05:09 | Emergency Department Note ---
ED Visit Note Physician Evaluation Note: I have personally evaluated and examined this patient. I agree with assessment and plan of Merna Mireles PA-C. 65 yr old male worsening shortness of breath and fevers/chills at home. Moderately ill appearing but stable breathing. Mild LFT bump though no specific abdominal pain associated with this. Dank Viera MD : Pneumonia Qualifiers: Pneumonia type: due to unspecified organism Laterality: right Lung location: lower lobe of lung Qualified Code(s): J18.9 - Pneumonia, unspecified organism
[2020-02-04 05:20] LABS: Basophils # (auto) 0.02 K/uL (0-0.2); Basophils % (auto) 0.2 %; Eosinophils # (auto) 0.06 K/uL (0-0.5); Eosinophils % (auto) 0.6 %; Hematocrit (blood only) 37.6 % (42-52); Hemoglobin 11.8 g/dL (14.0-18.0); Immature Granulocytes # (auto) 0.02 K/uL (0.00-0.02); Immature Granulocytes % (auto) 0.2 %; Lymphocytes # (auto) 0.85 K/uL (1.2-3.4); Mean Corpuscular Hemoglobin 26.3 pg (25-34); Mean Corpuscular Hgb Conc 31.4 g/dL (32-36); Mean Corpuscular Volume 83.7 fL (80-100); Mean Platelet Volume 9.6 fL (7.4-10.4); Monocytes # (auto) 0.45 K/uL (0.11-0.59); Monocytes % (auto) 4.2 %; Neutrophils # (auto) 9.25 K/uL (1.4-6.5); Neutrophils % (auto) 86.8 %; Platelet Count 124 K/uL (130-400); RDW Coefficient of Variation 15.9 % (11.5-14.5); RDW Standard Deviation 48.5 fL (36.4-46.3); Red Blood Count 4.49 M/uL (4.7-6.1); White Blood Count 10.65 K/uL (4.8-10.8)
[2020-02-04] MEDS ORDERED: PIPERACILL/TAZOBAC CONSULT ACTIVE PRN (05:25)
[2020-02-04] MEDS ORDERED: PIPERACILLIN/TAZOBACTAM 4.5 GM/120 ML BAG IV ONE (05:25)
[2020-02-04 05:36] LABS: INR 2.1 (0.9-1.1); Partial Thromboplastin Ratio 1.1; Partial Thromboplastin Time 30.3 Seconds (21.0-31.0); Prothrombin Time 21.2 Seconds (9.0-12.0)
[2020-02-04 05:39] LABS: Alanine Aminotransferase 86 U/L (12-78); Albumin Level 3.7 gm/dl (3.4-5.0); Aspartate Aminotransferase 89 U/L (15-37); BUN Creatinine Ratio 17.7 (10-20); Blood Urea Nitrogen 53 mg/dl (7-18); Calcium 9.5 mg/dl (8.5-10.1); Carbon Dioxide 27 mmol/L (21-32); Chloride 102 mmol/L (98-107); Est GFR (Non-African American) 20.7; Glucose 252 mg/dl (70-99); Magnesium 2.1 mg/dl (1.8-2.4); Potassium 4.3 mmol/L (3.5-5.1); Sodium 138 mmol/L (136-145)
[2020-02-04] MEDS ORDERED: SODIUM CHLORIDE 0.9% 1000ML 500 ML IV ONE (05:40)
[2020-02-04 05:46] LABS: Alkaline Phosphatase 240 U/L (45-117); Bilirubin,Total 1.2 mg/dl (0.2-1); Globulin 3.8 gm/dl (2.5-4.0); Total Protein 7.5 gm/dl (6.4-8.2)
--- NOTE | 2020-02-04 06:49 | XRay Report ---
XR chest 1V portable CLINICAL HISTORY: SEPSIS COMPARISON STUDY: 01/05/2020 FINDINGS: The heart is enlarged. There is a left subclavian pacer/defibrillator. There is radiographi c evidence of congestive failure/fluid overload. Patchy airspace opacities at the right lung base, li sol reflect focal edema, although a superimposed infectious/inflammatory process cannot be excluded. Clinical and radiographic follow-up is recommended IMPRESSION: 1. Cardiomegaly and radiographic evidence of congestive failure/fluid overload. 2. Patchy airspace opacities at the right lung base, likely representing focal edema although a super imposed infectious/inflammatory process cannot be excluded. Clinical and radiographic follow-up is re commended. ACT 112: Negative or not required by law. Electronically signed by: Indra Aguilar M.D. 02/04/2020 6:48 AM
[2020-02-04 07:12] LABS: NT Pro B Type Natriuretic Pept 9877 pg/ml (0-900)
--- NOTE | 2020-02-04 10:13 | History and Physical Report ---
DATE OF ADMISSION: 02/04/2020 CHIEF COMPLAINT: Shortness of breath, fever and chills. HISTORY OF PRESENT ILLNESS: This is a 65-year-old male with past medical history significant for type 2 diabetes, hyperlipidemia, history of pancreatitis, history of COPD, history of sleep apnea and nocturnal hypoxia, uses CPAP with oxygen at nighttime, history of mild persistent asthma without complication, history of multiple pulmonary nodules, history of chronic sinusitis, chronic systolic and diastolic CHF, atrial fibrillation, history of moderate aortic stenosis, hypertension, pulmonary hypertension, peripheral vascular disease, obesity, gastroparesis, status post AICD, history of recent embolic left MCA, 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 He had an episode of vomiting. Denies any cough, denies any headache, no blurred vision, no earache, no runny nose, maybe mild sore throat. Denies any loss of sense of smell or taste. Denies any abdominal pain. Normal bowel and bladder movements. No burning micturitions. No hematuria or black stools. He says his swelling in the legs is stable, says his weight is stable. He is ambulating okay at home. His works in [employer], but think she recently was tested negative for COVID. Currently in the ER, where he came was tachypneic, spiking temperature, but after fluids and antibiotics he is feeling better . Currently he is hemodynamically stable and talking in full sentences. ALLERGIES: No known drug allergies. PAST MEDICAL HISTORY: As mentioned above. PAST SURGICAL HISTORY: History of adrenal gland procedure for blood pressure control, cardiac catheterization, colonoscopy, EGD with endoscopic ultrasound, lumbar spine and cervical spine steroid shots, status post pacemaker. MEDICATIONS: Currently the patient is on albuterol 2 puffs inhalation q. 4 hours p.r.n., aspirin 81 mg p.o. daily, vitamin D 2000 units p.o. daily, fluticasone salmeterol one inhalation b.i.d., Flonase 2 sprays intranasal daily p.r.n., gabapentin 100 mg p.o. t.i.d., hydralazine 75 mg p.o. t.i.d., Humalog sliding scale, DuoNebs q.i.d. p.r.n., isosorbide dinitrate 30 mg p.o. t.i.d., Lantus 75 units subcutaneous daily, lisinopril 10 mg p.o. daily, Toprol-XL 100 mg p.o. daily, Protonix 40 mg p.o. daily, Crestor 40 mg p.o. at bedtime, torsemide 10 mg p.o. daily, vitamin C 1 tablet p.o. b.i.d., Coumadin 7.5 mg 5 times a day and Coumadin 10 mg 2 times a week. FAMILY HISTORY: Significant for brother had lung cancer, diabetes. Mother has CHF. Sister has lung cancer. Son has end-stage renal disease, hypertension. SOCIAL HISTORY: . Chews tobacco, alcohol rarely. No drug use. REVIEW OF SYMPTOMS: As per HPI. Rest of review of systems negative. PHYSICAL EXAMINATION: GENERAL: The patient is of moderate build, patient obese, currently not in acute distress. VITAL SIGNS: Temperature 39.4, pulse 92, respiratory rate 20, blood pressure 120/80, oxygen 97% on 4 liters. HEENT: No pallor, no icterus. Pupils equal, round, reactive to light. Oral mucosa moist. NECK: No JVD, no neck masses. CARDIOVASCULAR: S1, S2 heard. Tachycardia. No murmurs. RESPIRATORY SYSTEM: Normal AP diameter. No accessory muscle use. No wheezing, no crackles. Bilateral diminished breath sounds. ABDOMEN: Soft, bowel sounds present, nontender. No distention. CENTRAL NERVOUS SYSTEM: Cranial nerves II-XII grossly intact. Nonfocal. EXTREMITIES: No edema, no erythema. LABORATORY DATA: WBC 10.66, hemoglobin 11.8, hematocrit 37.6, platelets 124. PT 21.2, INR 2.1, APTT 30.3. Sodium 138, potassium 4.3, chloride 102, bicarbonate 27, BUN 53, creatinine 3, serum glucose 252. Lactate 1.4, calcium 9.5, magnesium 2.1, total bilirubin 1.2, AST 89, ALT 86, alkaline phosphatase 240. Troponin I 0.06. Procalcitonin 0.2. COVID-19 PCR negative. IMAGING: Chest x-ray; patchy airspace opacity of the lung base, likely representing focal edema, although superimposed infectious inflammatory process cannot be excluded, mild CHF. ASSESSMENT AND PLAN: This is a 65-year-old male with history of congestive heart failure, chronic obstructive pulmonary disease, obstructive sleep apnea, diabetes, history of recent stroke, comes because of shortness of breath, fever and found to have possible pneumonia. 1. Sepsis. Meets criteria for sepsis secondary to tachycardia, fever spike and tachypnea, possible pneumonia on chest x-ray. He empirically received Zosyn in the ER. We will continue with Zosyn and doxycycline. Gentle fluids. Lactate is normal. COVID-19 PCR is negative. Will follow Blood culture and UA. Closely monitor in tele floor. 2. Acute kidney injury, chronic kidney disease stage IV. Baseline creatinine around 2.8, presently creatinine of 3. Holding his lisinopril and diuretics. Getting gentle fluids. We will follow the repeat labs. 3. History of acute on chronic systolic and diastolic congestive heart failure, moderate aortic stenosis, EF of 30-35%, moderate tricuspid and moderate mitral regurgitation on echocardiogram in 11/2019. Currently, volume status euvolemic. Holding his diuretics and getting gentle fluids. Monitor for volume overload. We will continue isosorbide dinitrate and Toprol-XL. We will closely monitor. 4. History of obstructive sleep apnea on CPAP and oxygen at nighttime. 5. Chronic obstructive pulmonary disease. Continue home inhalers and nebs prn. 6. Diabetes. Continue Lantus and sliding scale. Monitor the blood sugars. 7. Hyperlipidemia. Continue Crestor. 8. History of atrial fibrillation, rate controlled with Toprol-XL .On Coumadin. INR therapeutic. 9. Hypertension, on isosorbide dinitrate, metoprolol, hydralazine. Holding lisinopril and diuretics . Will monitor the blood pressure. 10. History of recent cerebrovascular accident on off Coumadin for EGD.. Speech seemed to be improved. 11. Deep venous thrombosis prophylaxis. INR is therapeutic. DISPOSITION: Closely monitor in tele floor. Level 1 full code as per discussion with the patient. PT and OT prior to discharge. Social service to help with discharge planning. MTDD
--- NOTE | 2020-02-04 10:13 | Electrocardiogram Report ---
Test Reason : Blood Pressure : / mmHG Vent. Rate : 110 BPM Atrial Rate : 087 BPM P-R Int : 000 ms QRS Dur : 170 ms QT Int : 400 ms P-R-T Axes : 000 -60 105 degrees QTc Int : 541 ms Afib with Vpaced beats and apache conduction and fusion beats Left axis deviation Non-specific intra-ventricular conduction block Abnormal ECG When compared with ECG of 07-JAN-2020 06:42, Rate has increased by 36 BPM Confirmed by Dixon Castro ([id number]) on 02/04/2020 10:13:12 AM Referred By: REFERRED SELF Confirmed By:Dixon Castro
[2020-02-04] MEDS ORDERED: ONDANSETRON INJ 2 MG/ML 2 ML VIAL IV PRN (14:38)
[2020-02-04] MEDS ORDERED: NON-FORMULARY MEDICATION (Iron,Carbonyl-Vitamin C [Vitron-C] 1 TAB) PO SCH (14:38)
[2020-02-04] MEDS ORDERED: SODIUM CHLORIDE 0.9% 1000ML 1,000 ML IV SCH (14:38)
[2020-02-04] MEDS ORDERED: ALBUT/IPRATROP 3MG/0.5MG NEB 3 ML VIAL INH PRN (14:38)
[2020-02-04] MEDS ORDERED: ACETAMINOPHEN 325 MG TAB PO PRN (14:38)
[2020-02-04] MEDS ORDERED: FLUTICASONE PROPIONATE NA SPR 16 GM BTL PRN (14:38)
[2020-02-04] MEDS ORDERED: NITROGLYCERIN SL 0.4 MG/TAB TAB SL PRN (14:38)
[2020-02-04] MEDS ORDERED: POLYETHYLENE (MIRALAX) 17 GM PACK PO PRN (14:38)
[2020-02-04] MEDS ORDERED: ALBUTEROL HFA 8 GM INHALER INH PRN (14:49)
[2020-02-04] MEDS ORDERED: INSULIN GLARGINE SOLOSTAR 100 UNITS/ML 3 ML PEN SQ SCH (15:00)
[2020-02-04] MEDS ORDERED: PIPERACILLIN/TAZOBACTAM 4.5 GM in DEXTROSE 5% 100 ML IV ONE (15:15)
[2020-02-04] MEDS: ASPIRIN 81 MG ECTAB PO SCH (16:07)
[2020-02-04] MEDS: METOPROLOL SUCC 50MG EXT REL TAB PO SCH (16:07)
[2020-02-04] MEDS: GABAPENTIN 100 MG CAP PO SCH ×2 (16:08→16:13)
[2020-02-04] MEDS: ISOSORBIDE DINITRATE 10 MG TAB PO SCH (16:08)
[2020-02-04] MEDS: WARFARIN SOD 7.5 MG TAB PO SCH (16:08)
[2020-02-04] MEDS: PANTOprazole 40 MG TAB PO SCH (16:08)
[2020-02-04] MEDS: hydrALAZINE HCL 25 MG TAB PO SCH ×2 (16:08→21:06)
[2020-02-04] MEDS ORDERED: INSULIN ASPART 100 UNITS/ML 3 ML PEN SC SCH (16:30)
[2020-02-04] MEDS ORDERED: PHARMACY GLYCEMIC MGMT CONSULT PRN (17:01)
[2020-02-04] MEDS: DOXYCYCLINE HYCLATE 100 MG in DEXTROSE 5% 100 ML IV SCH (17:21)
[2020-02-04] MEDS ORDERED: INSULIN HUMAN REGULAR PER UNIT 10 UNITS in SYRINGE 9.9 ML IV ONE (17:30)
--- NOTE | 2020-02-04 18:18 | Communication Note ---
Date of Service: February 04, 2020 Admitted earlier fever /chills /SOB //Xray chest shows patchy airspace opacity -possible pneumonia on IV Zosyn and Doxy clinically much better since admission Minimal shortness of breath no cough no fever or chills Hyperglycemic episodes noted, patient received dexamethasone 10 mg IV yesterday for bronchospasm Insulin sliding scale tightened, pharmacy consulted for glycemic management Bell Kay MD
[2020-02-04] MEDS ORDERED: SEVERE STRESS LEVEL ONE (20:50)
[2020-02-04] MEDS ORDERED: INSULIN PROTOCOL GOAL RANGE ONE (20:50)
[2020-02-04] MEDS ORDERED: INSULIN REGULAR 250 UNITS in SODIUM CHLORIDE 0.9% 247.5 ML IV SCH (21:00)
[2020-02-04] MEDS ORDERED: INSULIN HUMAN REGULAR IV BOLUS 4.5 UNITS in SYRINGE 0 ML IV ONE (21:00)
[2020-02-04] MEDS: PIPERACILLIN/TAZOBACTAM 4.5 GM in DEXTROSE 5% 100 ML IV SCH (21:04)
[2020-02-04] MEDS: ROSUVASTATIN CALCIUM 20 MG TAB PO SCH (21:05)
[2020-02-04] MEDS: INSULIN ASPART 100 UNITS/ML 3 ML PEN SC SCH (21:46)
[2020-02-05] MEDS ORDERED: INSULIN ASPART 100 UNITS/ML 3 ML PEN SC SCH
[2020-02-05] MEDS: DOXYCYCLINE HYCLATE 100 MG in DEXTROSE 5% 100 ML IV SCH ×2 (01:37→07:56)
[2020-02-05] MEDS: PIPERACILLIN/TAZOBACTAM 4.5 GM in DEXTROSE 5% 100 ML IV SCH ×2 (04:59→12:04)
[2020-02-05] MEDS ORDERED: INSULIN GLARGINE SOLOSTAR 100 UNITS/ML 3 ML PEN SQ SCH ×2 (07:15→21:00)
[2020-02-05 07:48] LABS: Basophils # (auto) 0.01 K/uL (0-0.2); Basophils % (auto) 0.1 %; Eosinophils # (auto) 0.01 K/uL (0-0.5); Eosinophils % (auto) 0.1 %; Hemoglobin 10.8 g/dL (14.0-18.0); Immature Granulocytes # (auto) 0.01 K/uL (0.00-0.02); Immature Granulocytes % (auto) 0.1 %; Lymphocytes # (auto) 0.87 K/uL (1.2-3.4); Mean Corpuscular Hemoglobin 26.6 pg (25-34); Mean Corpuscular Hgb Conc 31.8 g/dL (32-36); Mean Corpuscular Volume 83.7 fL (80-100); Mean Platelet Volume 9.7 fL (7.4-10.4); Monocytes # (auto) 0.52 K/uL (0.11-0.59); Monocytes % (auto) 5.4 %; Neutrophils # (auto) 8.22 K/uL (1.4-6.5); Neutrophils % (auto) 85.3 %; Platelet Count 109 K/uL (130-400); RDW Standard Deviation 49.1 fL (36.4-46.3); Red Blood Count 4.06 M/uL (4.7-6.1); White Blood Count 9.64 K/uL (4.8-10.8)
[2020-02-05] MEDS: INSULIN ASPART 100 UNITS/ML 3 ML PEN SC SCH ×5 (07:54→20:49)
[2020-02-05] MEDS: ASPIRIN 81 MG ECTAB PO SCH ×2 (07:57→07:58)
[2020-02-05] MEDS: METOPROLOL SUCC 50MG EXT REL TAB PO SCH (07:57)
[2020-02-05] MEDS: CHOLECALCIFEROL 1,000 UNITS 25 MCG TAB PO SCH (07:58)
[2020-02-05] MEDS: ISOSORBIDE DINITRATE 10 MG TAB PO SCH ×3 (07:58→18:51)
[2020-02-05] MEDS: FLUTICASONE/VILANTEROL 200/25MCG 14 PUFFS/INHALER INH SCH (07:58)
[2020-02-05 07:59] LABS: INR 3.2 (0.9-1.1); Prothrombin Time 31.9 Seconds (9.0-12.0)
[2020-02-05] MEDS: GABAPENTIN 100 MG CAP PO SCH ×3 (07:59→17:33)
[2020-02-05] MEDS: hydrALAZINE HCL 25 MG TAB PO SCH ×3 (07:59→20:51)
[2020-02-05] MEDS: PANTOprazole 40 MG TAB PO SCH (07:59)
[2020-02-05 08:20] LABS: BUN Creatinine Ratio 20.8 (10-20); Calcium 9.6 mg/dl (8.5-10.1); Creatinine Clr Calc Pharmacy 26.7 ml/min; Est GFR (African American) 20.2; Est GFR (Non-African American) 17.5; Magnesium 2.4 mg/dl (1.8-2.4); Potassium 4.4 mmol/L (3.5-5.1)
--- NOTE | 2020-02-05 09:33 | Pharmacy Report ---
Glycemic Control Consultation - Date of Service February 05, 2020 - Scope Scope: Glycemic Pharmacist consulted for glycemic control and to write orders per [facility] inpatient glycemic control protocol. - Objective Weight: 121.6 kg Accuchecks BSG (last 24hrs): 02/04/20 02/04/20 02/04/20 16:23 16:25 20:11 Glucose POC Glucose 422 H* 431 H* 410 H* 02/04/20 02/04/20 02/04/20 20:12 22:05 23:05 Glucose POC Glucose 585 H* 378 H* 362 H* 02/05/20 02/05/20 02/05/20 00:12 01:15 02:02 Glucose POC Glucose 384 H* 334 H* 280 H 02/05/20 02/05/20 02/05/20 03:14 05:08 06:26 Glucose POC Glucose 170 H 119 H 117 H 02/05/20 02/05/20 07:37 07:39 Glucose 127 H POC Glucose 128 H Laboratory Data (last 24hrs): 02/05/20 07:37 Potassium 4.4 Carbon Dioxide 29 Anion Gap 7.0 Creatinine 3.45 H D Est Cr Clr Drug Dosing 26.7 - Recent Pertinent Medications Outpatient Anti-diabetic Regimen: * Humalog 5 units with breakfast, 10 units with lunch, 20 units with dinner * Lantus 75 units daily * A1c = 10.6 % 12/08/19, updated A1c pending The patient is currently receiving: * IV insulin infusion, ran 4-13 units/hr from 1900 til 0600 this morning * Lantus 75 units x 1 yesterday at start of insulin drip * Regular insulin IV 10 units x 1 prior to drip starting * Novolog 30 units SQ x1 prior to drip Risk Factors for Insulin Resistance: * Steroids: Dexamethasone 10mg IV x1 yesterday @0547 * Infection: Zosyn + doxycyline * Diet: Type 2 DM - Assessment & Plan Assessment & Plan: ASSESSMENT: * 65 year old male admitted with sepsis, PAM, on IV antibiotics, hyperglycemic started on IV insulin drip last evening, partially due to IV Dexamethasone. * Type 2 diabetic, not well controlled on insulin at home, updated A1c ordered. * Insulin drip on hold at 0600, will transition to SQ regimen, with more aggressive parameters as IV steroids are still wearing off. * Patient has required much lower doses of insulin while inpatient vs home regimen during previous admissions. * ADA & AACE recommend a goal blood sugar range 140-180 mg/dl for the majority of critically ill & non-critically ill patients. However, more stringent targets may be selected in individual cases. Will utilize more stringent goal of 110-140mg/dl based on patient age & comorbidities. Additionally, tighter glycemic control is warranted to facilitate wound/infection healing. PLAN FOR INPATIENT GLYCEMIC CONTROL: * DC IV insulin infusion * Basal insulin * Lantus 40 units SQ x 1 dose now, * Lantus 30 units SQ HS for BSG > 180mg/dl * Bolus insulin * NovoLog per scale ACHS or Q6hrs while NPO and 0000 and 0400 * Goal Range: Low 110 mg/dL - High 140 mg/dL * Correction Factor: 10 mg/dL/unit * Nutritional / Prandial insulin per carb ratio of 1 unit per 2.5 grams CHO consumed * Please note that the plan above was derived based on current level of insulin resistance and hospital stress. These recommendations are appropriate for inpatient admission only. Plan of care upon discharge will need to be reassessed to avoid potential outpatient hypo/hyperglycemia. Thank you.
[2020-02-05] MEDS ORDERED: INSULIN ASPART 100 UNITS/ML 3 ML PEN SC ONE (15:00)
[2020-02-05] MEDS ORDERED: SODIUM CHLORIDE 0.9% 1000ML 1,000 ML IV SCH (15:45)
[2020-02-05] MEDS: WARFARIN SOD 7.5 MG TAB PO SCH (15:53)
--- NOTE | 2020-02-05 17:01 | Hospitalist Progress Note ---
Date of Service February 05, 2020 Assessment & Plan (1) Pneumonia: Admitted earlier fever /chills /SOB //Xray chest shows patchy airspace opacity -possible pneumonia on IV Zosyn and Doxy clinically much better since admission no complain of shortness of breath no cough no fever or chills will D/c Zosyn cont on PO Doxy Type 2 DM : Hyperglycemic episodes noted, patient received dexamethasone 10 mg IV in ER for bronchospasm Insulin sliding scale tightened, pharmacy consulted for glycemic management Acute renal failure on CKD STAGE 3 baseline cr 2.8-3 ; cr elevated > 3 today hold lasix and ACEI gentle hydration repeat lab in am Chronic afib : on coumadin R/O Lyme disease : pt been out in the [place] for [place] has typical target shaped rash on left arm does not recall any tick bite ordered for Lyme titer on Doxycycline present at bedside updated Admission and Anticipated Discharge Date Admission Date: February 04, 2020 Subjective cough , shortness of breath has markedly improved no fever or chill no orthopnea Review of Systems Review of Systems: All systems reviewed & are unremarkable except as noted in HPI & below Physical Exam Constitutional: WD/WN, vitals as above Eyes: PERRL, conjunctivae normal, anicteric sclerae ENMT: external ear and nose normal, oropharynx normal Neck: trachea midline, no thyromegaly Respiratory: normal respiratory effort, lungs clear to auscultation Cardiovascular: RRR, no murmur, no edema Gastrointestinal (Abdomen): normal bowel sounds, soft, nontender, no hepatosplenomegaly Musculoskeletal: no cyanosis or clubbing, extremities motor strength 5/5 Skin: small circular rash present on left arm with central clearing , no itchting or pain Neurologic: PERRL, EOMI, accommodation nl, no face palsy, no dysarthria Psychiatric: A+Ox3, euthymic affect Results & Data Results & Data ([facility]) Vital Signs (Past 12 Hours) Vital Signs Temp Pulse Pulse Resp BP Pulse Ox 02/05/20 16:29 36.4 C L 81 18 125/76 93 02/05/20 15:18 71 02/05/20 14:32 36.4 C L 70 20 105/66 95 02/05/20 11:09 36.6 C 72 20 112/80 96 02/05/20 07:50 36.5 C 73 20 123/74 96 02/05/20 07:29 70 (1) Pneumonia Laterality: right Lung location: lower lobe of lung Pneumonia type: due to unspecified organism Qualified Code(s): J18.9 - Pneumonia, unspecified organism
[2020-02-05 18:08] LABS: Lyme Ab IgG w/WB Rflx Negative (Negative); Lyme Ab IgM w/WB Rflx Negative (Negative)
[2020-02-05] MEDS: ROSUVASTATIN CALCIUM 20 MG TAB PO SCH (20:50)
[2020-02-05] MEDS: DOXYCYCLINE HYCLATE 100 MG CAP PO SCH (20:51)
[2020-02-06] MEDS: INSULIN ASPART 100 UNITS/ML 3 ML PEN SC SCH ×6 (00:29→21:31)
[2020-02-06 00:38] LABS: Appearance Urine Clear (Clear); Bacteria Urine Automated Negative (Negative); Bilirubin Urine Negative (Negative); Blood Urine Negative (Negative); Color Urine Yellow; Epithelial Cell Urine Auto 20-30 /lpf (0-5); Glucose Urine UA Negative (Negative); Ketones Urine Negative (Negative); Leukocyte Esterase Urine Negative (Negative); Nitrite Urine Negative (Negative); Protein Urine 2+ (Negative); RBC Urine Automated 0-4 /hpf (0-4); Specific Gravity Urine 1.021 (1.000-1.030); Urobilinogen Urine Negative (Negative)
[2020-02-06] MEDS: CARBOHYDRATES FOR HYPOGLYCEMIA PO PRN (04:06)
[2020-02-06] MEDS ORDERED: GLUCOSE 10 TABS/TUBE PO PRN (04:15)
[2020-02-06] MEDS ORDERED: GLUCOSE 40% GEL 15 GM TUBE PO PRN (04:15)
[2020-02-06] MEDS ORDERED: DEXTROSE 50% 50 ML SYRINGE IV PRN (04:15)
[2020-02-06] MEDS ORDERED: GLUCAGON FOR INJ 1 MG VIAL SQ PRN (04:15)
[2020-02-06 05:23] LABS: Basophils # (auto) 0.01 K/uL (0-0.2); Basophils % (auto) 0.1 %; Eosinophils # (auto) 0.12 K/uL (0-0.5); Eosinophils % (auto) 1.5 %; Hematocrit (blood only) 33.2 % (42-52); Hemoglobin 10.5 g/dL (14.0-18.0); Immature Granulocytes # (auto) 0.01 K/uL (0.00-0.02); Immature Granulocytes % (auto) 0.1 %; Lymphocytes # (auto) 0.81 K/uL (1.2-3.4); Lymphocytes % (auto) 10.1 %; Mean Corpuscular Hemoglobin 26.5 pg (25-34); Mean Corpuscular Hgb Conc 31.6 g/dL (32-36); Mean Corpuscular Volume 83.8 fL (80-100); Mean Platelet Volume 9.9 fL (7.4-10.4); Monocytes # (auto) 0.84 K/uL (0.11-0.59); Monocytes % (auto) 10.5 %; Neutrophils # (auto) 6.23 K/uL (1.4-6.5); Neutrophils % (auto) 77.7 %; Platelet Count 119 K/uL (130-400); RDW Coefficient of Variation 16.3 % (11.5-14.5); RDW Standard Deviation 49.5 fL (36.4-46.3); Red Blood Count 3.96 M/uL (4.7-6.1); White Blood Count 8.02 K/uL (4.8-10.8)
[2020-02-06 05:40] LABS: INR 4.1 (0.9-1.1); Prothrombin Time 40.4 Seconds (9.0-12.0)
[2020-02-06 05:55] LABS: BUN Creatinine Ratio 19.9 (10-20); Calcium 8.9 mg/dl (8.5-10.1); Est GFR (African American) 16.9; Est GFR (Non-African American) 14.6; Magnesium 2.6 mg/dl (1.8-2.4); Potassium 4.1 mmol/L (3.5-5.1)
[2020-02-06 06:13] LABS: Troponin I 0.074 ng/ml (0-0.045)
[2020-02-06 06:48] LABS: Estimated Average Glucose 212 mg/dl
[2020-02-06] MEDS: ISOSORBIDE DINITRATE 10 MG TAB PO SCH ×3 (07:50→16:32)
[2020-02-06] MEDS: hydrALAZINE HCL 25 MG TAB PO SCH ×3 (07:51→20:52)
[2020-02-06] MEDS: DOXYCYCLINE HYCLATE 100 MG CAP PO SCH (07:51)
[2020-02-06] MEDS: ASPIRIN 81 MG ECTAB PO SCH (07:51)
[2020-02-06] MEDS: CHOLECALCIFEROL 1,000 UNITS 25 MCG TAB PO SCH (07:52)
[2020-02-06] MEDS: GABAPENTIN 100 MG CAP PO SCH ×3 (07:52→16:32)
[2020-02-06] MEDS: METOPROLOL SUCC 50MG EXT REL TAB PO SCH (07:52)
[2020-02-06] MEDS: FLUTICASONE/VILANTEROL 200/25MCG 14 PUFFS/INHALER INH SCH (07:53)
[2020-02-06] MEDS: PANTOprazole 40 MG TAB PO SCH (07:53)
[2020-02-06] MEDS: INSULIN GLARGINE SOLOSTAR 100 UNITS/ML 3 ML PEN SQ SCH (08:44)
--- NOTE | 2020-02-06 08:56 | Electrocardiogram Report ---
Test Reason : Blood Pressure : / mmHG Vent. Rate : 073 BPM Atrial Rate : 072 BPM P-R Int : 000 ms QRS Dur : 182 ms QT Int : 514 ms P-R-T Axes : 000 -31 143 degrees QTc Int : 566 ms Atrial fibrillation with intermittent ventricular electronic pacing Biventricular pacemaker detected Abnormal ECG When compared with ECG of 04-FEB-2020 05:11, HR has decreased by 37 bpm Otherwise no significant change Confirmed by Shukri Roblero ([id number]) on 02/06/2020 8:55:58 AM Referred By: REFERRED SELF Confirmed By:Shukri Roblero
--- NOTE | 2020-02-06 10:00 | Consultation Report ---
DATE OF CONSULTATION: 02/06/2020 REASON FOR CONSULT: Acute renal failure on background chronic kidney disease. HISTORY OF PRESENT ILLNESS: The patient is a 65-year-old white male with significant comorbid disease including type 2 diabetes, COPD, sleep apnea with nocturnal hypoxia with CPAP and oxygen at nighttime, congestive heart failure with an EF of 30%, atrial fibrillation, moderate aortic stenosis, pulmonary hypertension as well as baseline chronic kidney disease stage IV. Even at baseline creatinine is around 2.8. He presented to the hospital 2 days ago with a chief complaint of shortness of breath, fever and chills. He has been diagnosed as having sepsis syndrome related with pneumonia. He is getting antibiotics at this time and with that he feels better. COVID-19 test is negative. Creatinine was 3.0 at baseline at the time of admission, it has gone up since then slightly to 3.45 and then 4.0 today. He is getting IV fluid at this time. Blood culture was positive for Enterobacter. Urine culture pending. ALLERGIES: None. PAST MEDICAL HISTORY: As detailed in HPI. On top of that, he also has a history of mild asthma, history of multiple pulmonary nodules, chronic sinusitis, diastolic congestive heart failure, atrial fibrillation, peripheral vascular disease, obesity, gastroparesis, status post AICD, history of recent embolic left MCA stroke, history of stroke while off anticoagulation, history of adrenal gland procedure for blood pressure control, cardiac catheterization, colonoscopy, EGD with endoscopic ultrasound, lumbar spine and cervical spine, status post pacemaker. MEDICATIONS: At home was reviewed in detail. The patient does take lisinopril at home as well as torsemide 10 mg daily. He was not taking any NSAIDs. FAMILY HISTORY: Significant for end-stage renal disease in his son. SOCIAL HISTORY: . He chews tobacco. Alcohol rarely. No drugs. REVIEW OF SYSTEMS: As detailed in HPI. Positive review of system included fever, chills, shortness of breath and weakness. Otherwise, 12 systems reviewed and negative. PHYSICAL EXAMINATION: GENERAL: The patient is a middle-aged white male who is moderate built, slightly obese in mild respiratory distress but on room air. VITAL SIGNS: Most recent vital signs include blood pressure 114/75, pulse rate 75, temperature 37, 98% on room air. HEENT: Mucous membrane is moist. NECK: Supple. No jugular venous distention. CHEST: Bilateral decreased breath sounds with crackles and rhonchi bilaterally at the bases. CARDIOVASCULAR: S1 and S2, irregular, systolic murmur heard. ABDOMEN: Soft, nontender. EXTREMITIES: Shows 1+ pitting edema bilaterally. NEUROLOGIC: Awake, alert, oriented x3. LABORATORY TESTS: Blood culture done at the time of admission positive for Enterobacter, acute renal failure with worsening creatinine and is up to 4.0 now. Baseline creatinine is 3.. Urine sediment shows lots of epithelial cells, some hyaline casts, protein, negative blood. Urine culture pending. Chest x-ray shows evidence of congestive heart failure with cardiomegaly as well as superimposed pneumonia. ASSESSMENT AND PLAN: A 65-year-old male with Enterobacter bacteremia, presenting with sepsis-like syndrome. The patient has extensive comorbid disease which makes him very prone to acute renal failure including longstanding type 2 diabetes with preexisting chronic kidney disease stage IV, cardiac disease as well as pulmonary disease. Acute renal failure. This is acute tubular necrosis like picture and not simple volume depletion. Given his extensive comorbid disease as well as preexisting chronic kidney disease IV, it is inevitable that there will be some worsening of his renal function with bacteremia. He is not volume depleted and has clear evidence of congestive heart failure at this time and IV fluid will be stopped. There might be some worsening of the renal function before he starts to get better. We will just have to be patient for the renal recovery to happen, which will not be very prompt. No further workup is needed. Avoid nephrotoxic agent. He may even need IV Lasix given his chest x-ray finding as well as physical examination. He can have Lasix if he gets short of breath. Continue daily labs. MTDD
--- NOTE | 2020-02-06 14:57 | Pharmacy Report ---
Pharmacy Glycemic Short Note 2 - Date of Service February 06, 2020 - Glycemic Short BSG Results (Last 24 hours): 02/05/20 02/05/20 02/06/20 16:49 20:17 00:21 Glucose POC Glucose 243 H 175 H 75 02/06/20 02/06/20 02/06/20 03:46 04:04 04:06 Glucose POC Glucose 125 H 64 L* 65 L* 02/06/20 02/06/20 02/06/20 04:22 04:45 07:47 Glucose 100 H POC Glucose 86 91 02/06/20 11:48 Glucose POC Glucose 190 H OUTPATIENT ANTIDIABETIC REGIMEN: * A1c 9.0% 02/05/20- CKD stage IV, acute kidney injury * Humalog 5 units iwth breakfast, 10 units with lunch, 20 units with supper * lantus 75 units daily ASSESSMENT: 02/06/20 * Patient received 135 units of insulin yesterday, 40 units of basal, 95 units of bolus * Fasting this morning 91 mg/dL- will decrease lantus dose ~13% to 35 units daily, previous recent admission maintained on 32-40 units daily * Slightly loosened CF/CR today as SCR continues to trend upward and expect dexamethasone to be wearing off, may need to loosen again tomorrow 02/05/20 65 year old male admitted with sepsis, PAM, on IV antibiotics, hyperglycemic started on IV insulin drip last evening, partially due to IV Dexamethasone. * Type 2 diabetic, not well controlled on insulin at home, updated A1c ordered. * Insulin drip on hold at 0600, will transition to SQ regimen, with more aggressive parameters as IV steroids are still wearing off. * Patient has required much lower doses of insulin while inpatient vs home regimen during previous admissions. * ADA & AACE recommend a goal blood sugar range 140-180 mg/dl for the majority of critically ill & non-critically ill patients. However, more stringent targets may be selected in individual cases. Will utilize more stringent goal of 110-140mg/dl based on patient age & comorbidities. Additionally, tighter glycemic control is warranted to facilitate wound/infection healing. PLAN FOR INPATIENT GLYCEMIC CONTROL: * Hold outpatient oral diabetes medications * Basal insulin * Lantus 35 units SQ qam * Bolus insulin * NovoLog per scale ACHS or Q6hrs while NPO * Goal Range: Low 110 mg/dL - High 140 mg/dL * Correction Factor: 12 mg/dL/unit * Nutritional / Prandial insulin per carb ratio of 1 unit per 3.5 grams CHO consumed
[2020-02-06] MEDS ORDERED: PHYTONADIONE 5 MG TAB PO STA (15:21)
[2020-02-06] MEDS ORDERED: WARFARIN SOD 10 MG TAB PO SCH (16:00)
[2020-02-06] MEDS: cefTRIAXone SODIUM 2,000 MG in DEXTROSE 5% 50 ML IV SCH (16:29)
[2020-02-06] MEDS: LACTOBACILLUS ACIDOPHILUS 1 GM PACK PO SCH (16:32)
--- NOTE | 2020-02-06 18:48 | Hospitalist Progress Note ---
Date of Service February 06, 2020 Assessment & Plan (1) Pneumonia: Admitted earlier fever /chills /SOB //Xray chest shows patchy airspace opacity -possible pneumonia clinically much better since admission no complain of shortness of breath no cough no fever or chills Abx adjusted to Rocephin hx of enterococcus UTI : cont on IV rocephin Black tarry stool : Hb stable INR elevated > 4 coumadin and aspirin on hold ordered for low dose vit K follow H&H ordered for stool heme occult /c diff Type 2 DM : BSG improved appreciate input from pharmacy for glycemic management Acute renal failure on CKD STAGE 3 baseline cr 2.8-3 ; cr elevated > 3-> 4 today hold lasix and ACEI gentle hydration repeat lab in am nephrology consulted Chronic afib : INR elevated hold coumadin R/O Lyme disease : pt been out [place] for hunting has typical target shaped rash on left arm does not recall any tick bite lyme titer negative d/c Doxycycline Admission and Anticipated Discharge Date Admission Date: February 04, 2020 Subjective report of liquid dark tarry bowel movement today no complain of abdominal pain no cough or fever or chills Physical Exam Constitutional: WD/WN, vitals as above Eyes: PERRL, conjunctivae normal, anicteric sclerae ENMT: external ear and nose normal, oropharynx normal Neck: trachea midline, no thyromegaly Respiratory: normal respiratory effort, lungs clear to auscultation Cardiovascular: RRR, no murmur, no edema Gastrointestinal (Abdomen): normal bowel sounds, soft, nontender, no hepatosplenomegaly Musculoskeletal: no cyanosis or clubbing, extremities motor strength 5/5 Neurologic: PERRL, EOMI, accommodation nl, no face palsy, no dysarthria Psychiatric: A+Ox3, euthymic affect Results & Data Results & Data ([facility]) Vital Signs (Past 12 Hours) Vital Signs Temp Pulse Pulse Resp BP Pulse Ox 02/06/20 15:58 36.7 C 77 18 103/64 96 02/06/20 11:41 36.6 C 81 16 107/71 95 02/06/20 07:41 75 02/06/20 07:35 37.0 C 79 16 114/75 98 (1) Pneumonia Laterality: right Lung location: lower lobe of lung Pneumonia type: due to unspecified organism Qualified Code(s): J18.9 - Pneumonia, unspecified organism
[2020-02-06] MEDS: ROSUVASTATIN CALCIUM 20 MG TAB PO SCH (20:52)
[2020-02-07 06:22] LABS: Hematocrit (blood only) 33.2 % (42-52); Hemoglobin 10.5 g/dL (14.0-18.0)
[2020-02-07 06:26] LABS: INR 2.2 (0.9-1.1); Prothrombin Time 21.9 Seconds (9.0-12.0)
[2020-02-07] MEDS: CARBOHYDRATES FOR HYPOGLYCEMIA PO PRN (08:00)
[2020-02-07] MEDS: PANTOprazole 40 MG TAB PO SCH (08:44)
[2020-02-07] MEDS: METOPROLOL SUCC 50MG EXT REL TAB PO SCH (08:44)
[2020-02-07] MEDS: hydrALAZINE HCL 25 MG TAB PO SCH ×3 (08:46→20:49)
[2020-02-07] MEDS: GABAPENTIN 100 MG CAP PO SCH ×3 (08:46→17:19)
[2020-02-07] MEDS: CHOLECALCIFEROL 1,000 UNITS 25 MCG TAB PO SCH (08:47)
[2020-02-07] MEDS: ISOSORBIDE DINITRATE 10 MG TAB PO SCH ×3 (08:47→17:19)
[2020-02-07] MEDS: FLUTICASONE/VILANTEROL 200/25MCG 14 PUFFS/INHALER INH SCH (08:48)
[2020-02-07] MEDS: LACTOBACILLUS ACIDOPHILUS 1 GM PACK PO SCH ×3 (08:51→17:19)
[2020-02-07] MEDS ORDERED: INSULIN ASPART 100 UNITS/ML 3 ML PEN SC STA (09:18)
[2020-02-07] MEDS: INSULIN GLARGINE SOLOSTAR 100 UNITS/ML 3 ML PEN SQ SCH (09:19)
[2020-02-07] MEDS: INSULIN ASPART 100 UNITS/ML 3 ML PEN SC SCH ×4 (09:23→20:50)
--- NOTE | 2020-02-07 09:54 | Pharmacy Report ---
Pharmacy Glycemic Short Note 2 - Date of Service February 07, 2020 - Glycemic Short BSG Results (Last 24 hours): 02/06/20 02/06/20 02/06/20 11:48 16:36 20:15 Glucose POC Glucose 190 H 134 H 488 H* 02/06/20 02/06/20 02/06/20 20:16 20:17 20:37 Glucose 208 H POC Glucose 233 H 579 H* 02/07/20 02/07/20 02/07/20 03:34 07:55 07:56 Glucose POC Glucose 136 H 57 L* 59 L* 02/07/20 08:15 Glucose POC Glucose 77 OUTPATIENT ANTIDIABETIC REGIMEN: * A1c 9.0% 02/05/20- CKD stage IV, acute kidney injury * Humalog 5 units iwth breakfast, 10 units with lunch, 20 units with supper * lantus 75 units daily ASSESSMENT: 02/07/20: * Pt with severe HIGH BSG last night at HS. However, on repeat/re-check BSG and plasma GLU draw BSG only mildly elevated. Hyperglycemia was over-corrected at HS leading to a LOW BSG this AM. * Pt with symptomatic LOW BSG this AM- pt felt lightheaded and dizzy. Consumed 90g CHO at breakfast and was to get 25+ units of NovoLog for breakfast coverage. Spoke with RN and ordered 15 units of NovoLog instead of 25 units to prevent re-peat low at lunch. * Will adjust HS parameters of NovoLog to prevent over-correction at HS leading to AM LOW BSG. 02/06/20 * Patient received 135 units of insulin yesterday, 40 units of basal, 95 units of bolus * Fasting this morning 91 mg/dL- will decrease lantus dose ~13% to 35 units daily, previous recent admission maintained on 32-40 units daily * Slightly loosened CF/CR today as SCR continues to trend upward and expect dexamethasone to be wearing off, may need to loosen again tomorrow 02/05/20 65 year old male admitted with sepsis, PAM, on IV antibiotics, hyperglycemic started on IV insulin drip last evening, partially due to IV Dexamethasone. * Type 2 diabetic, not well controlled on insulin at home, updated A1c ordered. * Insulin drip on hold at 0600, will transition to SQ regimen, with more aggressive parameters as IV steroids are still wearing off. * Patient has required much lower doses of insulin while inpatient vs home regimen during previous admissions. * ADA & AACE recommend a goal blood sugar range 140-180 mg/dl for the majority of critically ill & non-critically ill patients. However, more stringent targets may be selected in individual cases. Will utilize more stringent goal of 110-140mg/dl based on patient age & comorbidities. Additionally, tighter glycemic control is warranted to facilitate wound/infection healing. PLAN FOR INPATIENT GLYCEMIC CONTROL: * Hold outpatient oral diabetes medications * Basal insulin * Lantus 35 units SQ qam * Bolus insulin * NovoLog per scale AC * Goal Range: Low 110 mg/dL - High 140 mg/dL * Correction Factor: 12 mg/dL/unit * Nutritional / Prandial insulin per carb ratio of 1 unit per 3.5 grams CHO consumed * Bolus insulin * NovoLog per scale HS ONLY (significantly loosened parameters) * Goal Range: Low 110 mg/dL - High 140 mg/dL * Correction Factor: 40 mg/dL/unit * Nutritional / Prandial insulin per carb ratio of 1 unit per 13 grams CHO consumed
--- NOTE | 2020-02-07 10:31 | Progress Notes ---
DATE: 02/07/2020 SUBJECTIVE: Overnight, no new issues. He feels slightly better. OBJECTIVE: VITAL SIGNS: Vital signs are stable with blood pressure of 122/84, pulse rate 72, 96% on room air, temperature 36.7 degrees Celsius. HEENT: Mucous membranes moist. NECK: Supple. No jugular venous distention. CHEST: Bilateral clear to auscultation. CARDIOVASCULAR: S1 and S2 irregular. Soft systolic murmur heard. ABDOMEN: Soft, nontender. EXTREMITIES: Shows 1+ pitting edema bilaterally, more so in the left. NEUROLOGIC: Awake, alert, oriented x3. LABORATORY TESTS: Blood culture positive for Enterobacter. There was no renal panel done today. Creatinine yesterday was 4. Hemoglobin today is 10.5. ASSESSMENT AND PLAN: A 65-year-old male with Enterobacter bacteremia, presenting with sepsis-like syndrome. The patient has extensive comorbidities which makes him very prone to acute renal failure including longstanding type 2 diabetes with preexisting chronic kidney disease stage IV with a baseline creatinine of 3 as well as cardiac and pulmonary disease. 1. Acute renal failure: This is secondary to acute tubular necrosis, not simple volume depletion. Given that he is not in any overt respiratory distress, we can hold off on the Lasix for now. The renal function might get worse before it starts recovering. 2. Bacteremia. This is Enterobacter bacteremia. I will defer to primary team to decide whether he needs to be evaluated for infective endocarditis.
--- NOTE | 2020-02-07 13:32 | Communication Note ---
Date of Service: February 07, 2020 Attending note: Blood culture: 02/04/2020: 1 bottle positive for Enterobacter pansensitive Patient is continued with IV Rocephin Repeat blood cultures ordered, Order for resting echo, if repeat blood culture positive for Enterococcus will consider LIZZIE Request for [facility] infectious disease consult History of UTI urine culture 12/18/2019: Enterococcus faecalis: Was pansensitive Bell Kay MD
[2020-02-07 14:31] LABS: BUN Creatinine Ratio 19.7 (10-20); Calcium 9.3 mg/dl (8.5-10.1); Est GFR (African American) 16.8; Est GFR (Non-African American) 14.5
[2020-02-07] MEDS: cefTRIAXone SODIUM 2,000 MG in DEXTROSE 5% 50 ML IV SCH (15:41)
--- NOTE | 2020-02-07 17:49 | Hospitalist Progress Note ---
Date of Service February 07, 2020 Assessment & Plan (1) Pneumonia: Sepsis : Admitted with fever /chills/rigot /SOB /-met criteria for sepsis Xray chest shows patchy airspace opacity -possible pneumonia has been afebrile since admission , stable vitals with resolution of cough and sob was on Iv rocephin Bacteremia : blood culture : 1 bottle enterococcus -not sure of the source appreciate input from ID [facility] abx changed to Iv rocephin repeat blood cultures ordered TTE for evaluation of endocarditis plan of care updated to pt and - Black tarry stool /possible upper GI bleed : multiple episodes of melanotic stool -is setting of elevated INR' no nausea /vomiting or abdominal pain INR was elevated > 4 coumadin and aspirin on hold given low dose vit K , INR 2.2 today pt will need Iv heparin bridge when INR < 2 ( hx of recent embolic cvA with subtheraputic INR /was off coumadin for GI procedure ) follow H&H stool heme occult positive /C diff negative GI consult requested Type 2 DM : BSG improved appreciate input from pharmacy for glycemic management Acute renal failure on CKD STAGE 3 baseline cr 2.8-3 ; cr elevated > 3-> 4 today hold lasix and ACEI nephrology consulted -appreciate input Chronic afib : INR elevated hold coumadin Back pain with radiation to hip and knee : has chronic pain , worsening of symptoms in last few days , limiting his activiy CT lumber spine w/o contrast , consider spine ortho eval if significant spinal stenosis pain control , PT/OT volume overload /worsening lower ext swelling : diuretics been kept on hold for acute renal failure need to D/w Nephrology about diuretics keep legs elevated ordered for MELISSA montoya FULL [employer] plan of care D/w with pt and all questions answered Admission and Anticipated Discharge Date Admission Date: February 04, 2020 Subjective report of liquid dark tarry bowel movement today and yesterday no complain of abdominal pain no cough or fever or chills Review of Systems Review of Systems: All systems reviewed & are unremarkable except as noted in HPI & below Gastrointestinal: + melena Physical Exam Constitutional: WD/WN, vitals as above Eyes: PERRL, conjunctivae normal, anicteric sclerae ENMT: external ear and nose normal, oropharynx normal Neck: trachea midline, no thyromegaly Respiratory: normal respiratory effort, lungs clear to auscultation Cardiovascular: RRR, no murmur, no edema Gastrointestinal (Abdomen): normal bowel sounds, soft, nontender, no hepatosplenomegaly Musculoskeletal: no cyanosis or clubbing, extremities motor strength 5/5 Neurologic: PERRL, EOMI, accommodation nl, no face palsy, no dysarthria Psychiatric: A+Ox3, euthymic affect Results & Data Results & Data ([facility]) Vital Signs (Past 12 Hours) Vital Signs Temp Pulse Resp BP BP Pulse Ox 02/07/20 15:52 36.8 C 77 20 152/85 H 98 02/07/20 07:57 36.7 C 72 18 122/84 96 (1) Pneumonia Laterality: right Lung location: lower lobe of lung Pneumonia type: due to unspecified organism Qualified Code(s): J18.9 - Pneumonia, unspecified organism
[2020-02-07] MEDS ORDERED: oxyCODONE/ACETAMINOPHEN 5mg/325mg TAB PO PRN (18:17)
[2020-02-07] MEDS: ROSUVASTATIN CALCIUM 20 MG TAB PO SCH (20:49)
[2020-02-08 06:40] LABS: Hematocrit (blood only) 33.3 % (42-52); Hemoglobin 10.2 g/dL (14.0-18.0)
[2020-02-08 06:49] LABS: INR 1.4 (0.9-1.1); Prothrombin Time 14.5 Seconds (9.0-12.0)
[2020-02-08 07:13] LABS: BUN Creatinine Ratio 20.4 (10-20); Calcium 9.4 mg/dl (8.5-10.1); Creatinine Clr Calc Pharmacy 27.5 ml/min; Est GFR (African American) 20.9; Potassium 4.2 mmol/L (3.5-5.1)
--- NOTE | 2020-02-08 07:59 | Gastrointestinal Consultation ---
Date of Consultation February 08, 2020 Assessment & Plan (1) Abdominal pain: Suspect that cause of abd pain prior to arrival may have been acute cholecystitis or symptomatic cholelithiasis. 1. Gen surgery consult. 2. Prefer MRCP, but pt not willing due to claustrophobia. He was offered a sed ative prior but still refuses MRCP. 3. Will check patency to CBD with a biliary US. 4. Recheck LFTs. Present on Admission?: Yes (2) Occult blood positive stool: Though dark BMs are noted, he recently underwent EGD in November w/o abnormalities. He has not had a significant drop in Hb. Will watch Hb and would defer EGD unless obvious, gross GI bleeding. Present on Admission?: Yes Supervising Physician Co-Signing Physician Notes I saw and evaluated the patient. He presented to the hospital several days ago with a question of chills and abdominal discomfort. Of note his history is notable for cholelithiasis seen on endoscopic ultrasound last month. He had presented in line with pancreatitis. Of note on admission he did have an elevation of his AST and ALT with a normal bilirubin. Mesfin labs show normalization of his liver associated enzymes. We had referred the patient to general surgery as an outpatient however he never made his appointment. Physical exam No obvious distress, no scleral icterus no right upper quadrant tenderness Impression: Patient presenting with still suggestive of biliary colic. It appears that his liver enzymes are normal, typically I would recommend MRCP however the patient is unable to undergo MRI. Therefore right upper quadrant ultrasound has been ordered. I would recommend that he see general surgery as the likely etiology to his recurrent symptoms is is cholelithiasis History of Present Illness Reason for Consultation: Occult positive dark stool, on coumadin. Requesting Physician: Dr. Kay Attending Physician: Angel Mane MD History of Present Illness Mr. Delarosa is a 65 yr old male pt of Dr. Adams Pickett with a hx of DM2, COPD, sleep apnea on CPAP with O2, asthma, CHF, moderate aortic stenosis, pulmonary HTN, PVD, obesity gastroparesis, CHF, CAD S/P insertion of AICD. He presented to the ED on 02/03 for abd pain. His on coumadin, which has been held and replaced with a heparin drip. The pt admits to having had a prior CVA and subsequent memory issues with slow word recall. He is known to our group as he was seen for acute pancreatitis f/u and underwent EGD with in November [address] Kent: gastritis, otherwise normal and EUS the same day with gallstones but no CBD abnormalities. An OP surgical appt was arranged but he did not come to the appt. The pt doesn't recall being told to see a surgeon. On EUS, there was pancreatic lobularity but no specific pancreatic duct abnormalities and no pancreatic lesions. He tells me that he experienced the sudden onset of chills, "shaking," with upper abd pain and fever. He was brought to the ED where there was a mild pneumonia on X-rays. He denies any cough or SOB. On arrival, LFTs were elevated: T Bili 1.2, AST 889, ALT 86, Alk Phos 240. Since arrival, he has been eating well and had less abdominal pain. He has had some black BMs and occult stool was positive but has not had a significant drop Hb which is about 11 at baseline and was 11.8 on arrival and 10 today. The pt denies any marijuana or alcohol use. Allergies Allergy/AdvReac Type Severity Reaction Status Date / Time No Known Allergies Allergy Verified 02/04/20 05:06 Home Medications Home Medications Medication Instructions Recorded Confirmed Type Lantus Solostar U-100 Insulin 40 units SUBCUT BID 02/05/18 02/06/20 History aspirin 81 mg PO DAILY 02/05/18 02/04/20 History cholecalciferol (vitamin D3) 2,000 unit PO DAILY 02/05/18 02/04/20 History [Vitamin D3] isosorbide dinitrate 30 mg PO TIDM 02/05/18 02/04/20 History metoprolol succinate [Toprol XL] 100 mg PO DAILY 02/05/18 02/04/20 History pantoprazole [Protonix] 40 mg PO DAILY 02/05/18 02/04/20 History rosuvastatin [Crestor] 40 mg PO HS 02/05/18 02/04/20 History gabapentin 100 mg PO TIDM 05/14/18 02/04/20 History albuterol sulfate [ProAir HFA] 2 puff INHALATION Q4H PRN 08/01/18 02/04/20 History fluticasone propionate [Flonase 2 spray INTRANASAL DAILY PRN 08/01/18 02/04/20 History Allergy Relief] ipratropium-albuterol 3 ml INHALATION QID PRN 08/01/18 02/04/20 History Vitron-C 1 tab PO BID 06/05/19 02/04/20 History insulin lispro [Humalog KwikPen See Rx Instructions .ROUTE .COMPLEX 06/05/19 02/04/20 History Insulin] hydralazine 75 mg PO TID 12/18/19 02/04/20 History lisinopril 10 mg PO DAILY #0 tab 01/10/20 02/04/20 Rx torsemide 10 mg PO DAILY 30 Days #30 tab 01/10/20 02/04/20 Rx warfarin 7.5 mg PO UD #30 tab 01/10/20 02/04/20 Rx warfarin 10 mg PO MoFr@1600 #30 tab 01/10/20 02/04/20 Rx fluticasone propion-salmeterol 1 inh INHALATION BID 02/04/20 02/04/20 History [Wixela Inhub] Patient History Medical History Aortic stenosis Asthma Atrial fibrillation on chronic anticoagulation CAD (coronary artery disease) "nonobstructive" Chronic anemia Chronic systolic (congestive) heart failure Diabetic neuropathy DM type 2 (diabetes mellitus, type 2) Dyslipidemia GERD (gastroesophageal reflux disease) Hypertension LBBB (left bundle branch block) Nocturnal hypoxia on 2L NC O2 HS PAF (paroxysmal atrial fibrillation) Thrombocytopenia Surgical History H/O cardiac catheterization Non nonobstructive CAD on 2017 cardiac cath Presence of combination internal cardiac defibrillator (ICD) and pacemaker Family History Other Diabetes Hypertension Lung cancer Social History Smoking Status: Unknown if ever smoked Tobacco Type: Smokeless Tobacco (Dip or Chew) Second Hand Exposure: No; Do You Dip or Chew Tobacco: Yes; Hx Alcohol Use: No Hx Substance Use: No Preferred Language: Greenlandic Communication Ability: Effective Visual Impairment: Limited First Breaker Feeder Required: No Beliefs That Will Affect Care: None marital status: Current Living Situation: Spouse current occupational status: retired 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 Denies weakness or weight loss Eyes: No eye redness, or pain, no recent vision changes Resp: No SOB, no cough Cardio: No palpitations/irregular beats, no chest pain GI: As per HPI, otherwise normal. : Denies pain on urination Skin: No jaundice, itching or new rashes Physical Exam Constitutional: WD/WN, vitals as above + obese Eyes: PERRL, conjunctivae normal, anicteric sclerae ENMT: external ear and nose normal, oropharynx normal Neck: trachea midline, no thyromegaly Respiratory: normal respiratory effort, lungs clear to auscultation Cardiovascular: Rate/Rhythm: regular rate and regular rhythm Heart Sounds: + murmur (2/6 systolic) Extremities: + edema (mild bilat lower, compression stockings in place) Gastrointestinal (Abdomen): Inspection/Auscultation: + abdomen distended (appears distended but pt reports that the abd is his typical size) Percussion/Palpation: abdomen soft; abdomen nontender, no guarding and no ascites 9obeisty, large abdomen Musculoskeletal: no cyanosis or clubbing, extremities motor strength 5/5 Skin: no rashes, warm and dry Neurologic: PERRL, EOMI, accommodation nl, no face palsy, no dysarthria Psychiatric: A+Ox3, euthymic affect Insight: + poor insight Lymphatic: no cervical or axillary lymphadenopathy Results & Data ([facility]) Vital Signs (Past 12 Hours) Vital Signs Temp Pulse Resp BP Pulse Ox 02/07/20 23:30 36.8 C 79 20 129/79 94 Diagnostic Findings CXR 02/04/20: 1. Cardiomegaly and radiographic evidence of congestive failure/fluid overload. 2. Patchy airspace opacities at the right lung base, likely representing focal edema although a superimposed infectious/inflammatory process cannot be excluded. Clinical and radiographic follow-up is recommended.
[2020-02-08] MEDS ORDERED: Heparin IV Low Dose *NO* Bolus IV SCH (08:21)
[2020-02-08 09:14] LABS: Albumin Level 3.1 gm/dl (3.4-5.0); Bilirubin Direct 0.2 mg/dl (0-0.2); Bilirubin,Total 0.4 mg/dl (0.2-1); Total Protein 6.6 gm/dl (6.4-8.2)
[2020-02-08] MEDS ORDERED: INSULIN GLARGINE SOLOSTAR 100 UNITS/ML 3 ML PEN SQ ONE (09:15)
[2020-02-08 09:38] LABS: Basophils # (auto) 0.01 K/uL (0-0.2); Basophils % (auto) 0.2 %; Eosinophils # (auto) 0.16 K/uL (0-0.5); Eosinophils % (auto) 2.9 %; Hematocrit (blood only) 34.5 % (42-52); Hemoglobin 10.7 g/dL (14.0-18.0); Immature Granulocytes # (auto) 0.01 K/uL (0.00-0.02); Immature Granulocytes % (auto) 0.2 %; Lymphocytes # (auto) 0.69 K/uL (1.2-3.4); Lymphocytes % (auto) 12.7 %; Mean Corpuscular Hemoglobin 26.4 pg (25-34); Mean Corpuscular Volume 85.2 fL (80-100); Mean Platelet Volume 9.3 fL (7.4-10.4); Monocytes # (auto) 0.63 K/uL (0.11-0.59); Monocytes % (auto) 11.6 %; Neutrophils # (auto) 3.93 K/uL (1.4-6.5); Neutrophils % (auto) 72.4 %; Platelet Count 112 K/uL (130-400); RDW Coefficient of Variation 16.3 % (11.5-14.5); RDW Standard Deviation 51.2 fL (36.4-46.3); Red Blood Count 4.05 M/uL (4.7-6.1); White Blood Count 5.43 K/uL (4.8-10.8)
[2020-02-08] MEDS: LACTOBACILLUS ACIDOPHILUS 1 GM PACK PO SCH ×3 (09:41→16:32)
[2020-02-08] MEDS: CHOLECALCIFEROL 1,000 UNITS 25 MCG TAB PO SCH (09:41)
[2020-02-08] MEDS: METOPROLOL SUCC 50MG EXT REL TAB PO SCH (09:42)
[2020-02-08] MEDS: hydrALAZINE HCL 25 MG TAB PO SCH ×3 (09:42→20:25)
[2020-02-08] MEDS: GABAPENTIN 100 MG CAP PO SCH ×3 (09:43→16:32)
[2020-02-08] MEDS: PANTOprazole 40 MG in DEXTROSE 5% 100 ML IV SCH ×4 (09:44→22:58)
[2020-02-08] MEDS: CEFEPIME 2,000 MG in SYRINGE 0 ML IV SCH (09:45)
[2020-02-08] MEDS: FLUTICASONE/VILANTEROL 200/25MCG 14 PUFFS/INHALER INH SCH (09:46)
[2020-02-08] MEDS: ISOSORBIDE DINITRATE 10 MG TAB PO SCH ×3 (09:48→16:31)
[2020-02-08] MEDS: INSULIN ASPART 100 UNITS/ML 3 ML PEN SC SCH ×4 (09:50→21:08)
[2020-02-08 09:52] LABS: INR 1.3 (0.9-1.1); Partial Thromboplastin Ratio 1.1; Partial Thromboplastin Time 30.4 Seconds (21.0-31.0)
--- NOTE | 2020-02-08 10:19 | Surgery Consultation ---
Date of Consultation February 08, 2020 Assessment & Plan (1) Cholelithiasis: This is a 65y M with a PMH significant for afib on coumadin, CHF, CKD, DM2, recent CVA in november while off blood thinners for a GI scope, HTN, GERD, pacemaker present, PAD, ARPIT who presented to the [facility] ED on 02/04/20 with complaints of fevers/chills starting Thursday. Patient does report a history of heartburn after eating sausage last Thursday and he did have an episode of emesis during that time. On admission LFT's showed Tbili: 1.2, AST: 89, ALT: 86, AlkP: 24. Today his LFT's are unremarkable and patient's WBC is normal at 5. Patient has been on IV abx for bacteremia. He has been afebrile >48hours. Patient states that since admission he has been eating well without any issues and denies abdominal pain or any associated nausea/vomiting. Appreciate GI assistance with workup. Currently a RUQ US has been ordered of which we will follow up upon. Supervising Physician Co-Signing Physician Notes I personally saw and evaluated the patient with Pushpa Perez PA-C and agree with the assessment and plan 65 yo male with cholelithiasis, enterobacter bacteremia, multiple medical problems -Agree with RUQ US, unlikely cholecystitis with normal WBC, no pain and eating well without issue -He could have passed a stone on presentation based on his initial symptoms and LFT's -Will await US results for further recommendations History of Present Illness Attending Physician: Angel Mane MD History of Present Illness This is a 65y M with a PMH significant for afib on coumadin, CHF, CKD, DM2, recent CVA in november while off blood thinners for a GI scope, HTN, GERD, pacemaker present, PAD, ARPIT who presented to the [facility] ED on 02/04/20 with complaints of fevers/chills starting Thursday. Patient states that Carlos A night he ate some sausage & subsequently developed heartburn in his upper chest area. Thereafter, he developed chills/rigors and called the ambulance to take him to the ED. Patient reports he did vomit x1 on his way in. Patient was admitted under the hospitalist service, started on IV abx and IVF, with improvement. Since admission he was found to have enterobacter cloacae bacteremia and ?pneumonia and ID has provided recommendations for an abx regimen. Patient reports having some bloody bowel movements since admission, but otherwise feels much improvement in his symptoms. He currently denies fevers/chills, abdominal pain, nausea/vomiting. He states he has been eating well without issues. Surgery was consulted as patient's LFT's were elevated on admission and due to his symptoms of nausea/heartburn after eating a fatty meal there is concern that gallbladder etiology should be ruled out. Allergies Allergy/AdvReac Type Severity Reaction Status Date / Time No Known Allergies Allergy Verified 02/04/20 05:06 Home Medications Home Medications Medication Instructions Recorded Confirmed Type Lantus Solostar U-100 Insulin 40 units SUBCUT BID 02/05/18 02/06/20 History aspirin 81 mg PO DAILY 02/05/18 02/04/20 History cholecalciferol (vitamin D3) 2,000 unit PO DAILY 02/05/18 02/04/20 History [Vitamin D3] isosorbide dinitrate 30 mg PO TIDM 02/05/18 02/04/20 History metoprolol succinate [Toprol XL] 100 mg PO DAILY 02/05/18 02/04/20 History pantoprazole [Protonix] 40 mg PO DAILY 02/05/18 02/04/20 History rosuvastatin [Crestor] 40 mg PO HS 02/05/18 02/04/20 History gabapentin 100 mg PO TIDM 05/14/18 02/04/20 History albuterol sulfate [ProAir HFA] 2 puff INHALATION Q4H PRN 08/01/18 02/04/20 History fluticasone propionate [Flonase 2 spray INTRANASAL DAILY PRN 08/01/18 02/04/20 History Allergy Relief] ipratropium-albuterol 3 ml INHALATION QID PRN 08/01/18 02/04/20 History Vitron-C 1 tab PO BID 06/05/19 02/04/20 History insulin lispro [Humalog KwikPen See Rx Instructions .ROUTE .COMPLEX 06/05/19 02/04/20 History Insulin] hydralazine 75 mg PO TID 12/18/19 02/04/20 History lisinopril 10 mg PO DAILY #0 tab 01/10/20 02/04/20 Rx torsemide 10 mg PO DAILY 30 Days #30 tab 01/10/20 02/04/20 Rx warfarin 7.5 mg PO UD #30 tab 01/10/20 02/04/20 Rx warfarin 10 mg PO MoFr@1600 #30 tab 01/10/20 02/04/20 Rx fluticasone propion-salmeterol 1 inh INHALATION BID 02/04/20 02/04/20 History [Wixela Inhub] Patient History Medical History Aortic stenosis Asthma Atrial fibrillation on chronic anticoagulation CAD (coronary artery disease) "nonobstructive" Chronic anemia Chronic systolic (congestive) heart failure Diabetic neuropathy DM type 2 (diabetes mellitus, type 2) Dyslipidemia GERD (gastroesophageal reflux disease) Hypertension LBBB (left bundle branch block) Nocturnal hypoxia on 2L NC O2 HS PAF (paroxysmal atrial fibrillation) Thrombocytopenia Surgical History H/O cardiac catheterization Non nonobstructive CAD on 2016 cardiac cath Presence of combination internal cardiac defibrillator (ICD) and pacemaker Family History Other Diabetes Hypertension Lung cancer Social History Smoking Status: Unknown if ever smoked Tobacco Type: Smokeless Tobacco (Dip or Chew) Second Hand Exposure: No; Do You Dip or Chew Tobacco: Yes; Hx Alcohol Use: No Hx Substance Use: No Preferred Language: Lithuanian Communication Ability: Effective Visual Impairment: Limited Bridge Welder Required: No Beliefs That Will Affect Care: None marital status: Current Living Situation: Spouse current occupational status: retired 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 Other Information That Helps Us Care for You: No Feels Safe at Home: Yes Safety Concerns: Feels Safe At This Time Assistive Devices: None Review of Systems Constitutional: + fever (thursday) and + chills (thursday) Eyes: no dry eyes and no worsening vision Ear, Nose, Mouth, Throat: no sore throat and no dysphagia Respiratory: no cough and no dyspnea Cardiovascular: no chest pain and no dyspnea Gastrointestinal: + heartburn, + nausea, + vomiting (thursday night), + diarrhea/loose stools and + blood in stools; no abdominal pain and no bloating Genitourinary: no dysuria and no problem reported Integumentary: no rash and no yellowing of the skin Psychiatric: no behavioral changes and no depression Hematologic / Lymphatic: + easy bleeding (On Coumadin) Physical Exam Physical Exam: awake Constitutional: WD/WN, vitals as above + morbidly obese and cooperative; no acute distress Eyes: PERRL, conjunctivae normal, anicteric sclerae Neck: trachea midline, no thyromegaly Respiratory: normal respiratory effort; no respiratory distress Cardiovascular: Rate/Rhythm: regular rate and + irregularly irregular Gastrointestinal (Abdomen): Inspection/Auscultation: + abdominal surgical scar (Left abdominal scar from prior ?adrenal gland removal) Percussion/Palpation: abdomen soft; abdomen nontender and no guarding Rectal Exam: + heme positive stool Negative Baumann's Musculoskeletal: no cyanosis or clubbing, extremities motor strength 5/5 Skin: no rashes, warm and dry Psychiatric: A+Ox3, euthymic affect Results & Data ([facility]) Vital Signs (Past 12 Hours) Vital Signs Temp Pulse Resp BP BP Pulse Ox 02/08/20 08:01 36.8 C 75 16 138/85 93 02/07/20 23:30 36.8 C 79 20 129/79 94 PG Care Time/CCT Total # of Minutes Spent Total Time Spent with Patient: Total time spent is greater than 50% in coordination of care (as documented) at patient's floor/unit and/or counseling patient: Coding Level of Care Code 35292 Inpt Consult Level 3 Diagnoses Cholelithiasis K80.20
[2020-02-08] MEDS: HEPARIN SODIUM/DEXTROSE 25,000 UNITS/500 ML BAG IV SCH (10:46)
--- NOTE | 2020-02-08 10:52 | Progress Notes ---
DATE: 02/08/2020 SUBJECTIVE: Overnight, the patient had some GI bleeding and is being seen by GI with the possibility of cholangitis as one of the diagnoses. He is making urine. Vital signs appear to be stable. OBJECTIVE: VITAL SIGNS: Blood pressure 138/85, pulse rate 75, temperature 36.8, 93% on room air. HEENT: Mucous membranes moist. NECK: Supple. No jugular venous distention. CHEST: Bilateral clear to auscultation. CARDIOVASCULAR: S1, S2 regular. ABDOMEN: Soft, somewhat tender on the right upper quadrant. LABORATORY TESTS: From this morning shows slight improvement in the renal function. Creatinine is down to 3.36. BUN is down to 69. Sodium 140, potassium 4.2, hemoglobin is still stable. ASSESSMENT AND PLAN: A 65-year-old male with Enterobacter bacteremia, presenting with sepsis-like syndrome. The patient has extensive comorbidities which make him very prone to acute renal failure including longstanding type 2 diabetes with preexisting chronic kidney disease stage IV with a baseline creatinine of 3 as well as significant cardiac and pulmonary disease. 1. Acute renal failure, this is secondary to acute tubular necrosis, not volume depletion. Given that he is not in any overt respiratory distress, we can hold off on the Lasix for now. Renal function at least in the last 24 hours has improved. 2. Bacteremia. This is Enterobacter bacteremia. Quite possible that cholangitis and hepatobiliary is the source of the Enterobacter. Defer to gastroenterology. MTDD
--- NOTE | 2020-02-08 13:14 | Hospitalist Progress Note ---
Date of Service February 08, 2020 Assessment & Plan (1) Pneumonia: Sepsis : Admitted with fever /chills/rigot /SOB /-met criteria for sepsis Xray chest shows patchy airspace opacity -possible pneumonia has been afebrile since admission , stable vitals with resolution of cough and sob was on Iv rocephin Bacteremia : blood culture : 1 bottle enterococcus -not sure of the source appreciate input from WYATT Delatorre abx changed to Iv Cefepime, plan of total of 14 days of antibiotics (May discharge on Cipro if QTC not prolonged, will obtain EKG) repeat blood cultures ordered plan of care updated to pt and Black tarry stool /possible upper GI bleed : multiple episodes of melanotic stool -in setting of elevated INR' no nausea /vomiting or abdominal pain INR was elevated > 4 coumadin and aspirin on hold given low dose vit K , INR 2.2 pt will need Iv heparin bridge when INR < 2 ( hx of recent embolic CVA with subtheraputic INR /was off coumadin for GI procedure ) follow H&H stool heme occult positive /C diff negative GI consult requested -given the patient's hemoglobin is stable, and no clear blood in stool noted, defer EGD at this time. Patient had EGD recently, just in November. Recommend MRCP however patient declines. Right upper quadrant ultrasound ordered and surgery consult ordered for cholelithiasis. Type 2 DM : BSG improved appreciate input from pharmacy for glycemic management Acute renal failure on CKD STAGE 3 baseline cr 2.8-3 ; cr elevated > 3-> 4 -> 3.3 hold lasix and ACEI nephrology consulted -appreciate input Chronic afib : INR elevated hold coumadin Patient on IV heparin now Back pain with radiation to hip and knee : has chronic pain , worsening of symptoms in last few days , limiting his activity CT lumber spine w/o contrast degenerative disease, no significant central canal stenosis, would consider spine ortho eval if significant spinal stenosis pain control , PT/OT volume overload /worsening lower ext swelling : diuretics been kept on hold for acute renal failure need to D/w Nephrology about diuretics keep legs elevated ordered for MELISSA montoya FULL CODE plan of care D/w with pt and all questions answered Admission and Anticipated Discharge Date Admission Date: February 04, 2020 Subjective Yesterday patient reported dark tarry stool, GI was consulted. Hemoglobin stable. At this time no EGD planned. MRCP discussed however patient declines. Surgery consulted for cholelithiasis. Right upper quadrant ultrasound ordered. Currently patient states that he feels well, he is sitting up in the chair, in no acute distress. Denies any fevers, chills, chest pain, shortness of breath, abdominal pain, nausea or vomiting. He continues to have loose stools. Review of Systems Review of Systems: All systems reviewed & are unremarkable except as noted in HPI & below Constitutional: no fever and no chills Respiratory: no cough and no dyspnea Cardiovascular: no chest pain and no palpitations Gastrointestinal: + diarrhea/loose stools; no abdominal pain, no nausea and no vomiting Physical Exam Physical Exam: Constitutional: Elderly male, sitting up in chair, in no acute distress, WD/WN, vitals as above Eyes: PERRL, EOMI, conjunctivae normal, anicteric sclerae ENMT: external ear and nose normal, oropharynx normal Neck: trachea midline, no thyromegaly Respiratory: normal respiratory effort, lungs clear to auscultation Cardiovascular: RRR, no murmur, no edema Gastrointestinal (Abdomen): normal bowel sounds, soft, nontender, nondistended Musculoskeletal: no cyanosis or clubbing, extremities motor strength 5/5, moves extremities spontaneously Neurologic: PERRL, EOMI, no face palsy, no dysarthria, moves extremities spontaneously Psychiatric: A+Ox3, euthymic affect Results & Data Results & Data ([facility]) Vital Signs (Past 12 Hours) Vital Signs Temp Pulse Resp BP Pulse Ox 02/08/20 08:01 36.8 C 75 16 138/85 93 Laboratory Results 02/08/20 02/08/20 02/08/20 Range/Units 12:57 11:21 09:28 WBC (4.8-10.8) K/uL RBC (4.7-6.1) M/uL Hgb (14.0-18.0) g/dL Hct (42-52) % MCV (80-100) fL MCH (25-34) pg MCHC (32-36) g/dL RDW Std Deviation (36.4-46.3) fL RDW Coeff of Joey (11.5-14.5) % Plt Count (130-400) K/uL MPV (7.4-10.4) fL Immature Gran % (Auto) % Neut % (Auto) % Lymph % (Auto) % [place] % (Auto) % Eos % (Auto) % Baso % (Auto) % Neut # (Auto) (1.4-6.5) K/uL Lymph # (Auto) (1.2-3.4) K/uL [place] # (Auto) (0.11-0.59) K/uL Eos # (Auto) (0-0.5) K/uL Baso # (Auto) (0-0.2) K/uL Immature Gran # (Auto) (0.00-0.02) K/uL PT 14.0 H (9.0-12.0) Seconds INR 1.3 H (0.9-1.1) APTT Pending 30.4 (21.0-31.0) Seconds PTT Ratio Pending 1.1 Sodium (136-145) mmol/L Potassium (3.5-5.1) mmol/L Chloride (98-107) mmol/L Carbon Dioxide (21-32) mmol/L Anion Gap (3-11) BUN (7-18) mg/dl Creatinine (0.6-1.4) mg/dl Est Cr Clr Drug Dosing ml/min Est GFR ( Amer) Est GFR (Non-Af Amer) BUN/Creatinine Ratio (10-20) Glucose (70-99) mg/dl POC Glucose 163 H (70-99) mg/dl Calcium (8.5-10.1) mg/dl Total Bilirubin (0.2-1) mg/dl Direct Bilirubin (0-0.2) mg/dl AST (15-37) U/L ALT (12-78) U/L Alkaline Phosphatase (45-117) U/L Total Protein (6.4-8.2) gm/dl Albumin (3.4-5.0) gm/dl 02/08/20 02/08/20 02/08/20 Range/Units 09:28 07:52 07:51 WBC 5.43 (4.8-10.8) K/uL RBC 4.05 L (4.7-6.1) M/uL Hgb 10.7 L (14.0-18.0) g/dL Hct 34.5 L (42-52) % MCV 85.2 (80-100) fL MCH 26.4 (25-34) pg MCHC 31.0 L (32-36) g/dL RDW Std Deviation 51.2 H (36.4-46.3) fL RDW Coeff of Joey 16.3 H (11.5-14.5) % Plt Count 112 L (130-400) K/uL MPV 9.3 (7.4-10.4) fL Immature Gran % (Auto) 0.2 % Neut % (Auto) 72.4 % Lymph % (Auto) 12.7 % [place] % (Auto) 11.6 % Eos % (Auto) 2.9 % Baso % (Auto) 0.2 % Neut # (Auto) 3.93 (1.4-6.5) K/uL Lymph # (Auto) 0.69 L (1.2-3.4) K/uL [place] # (Auto) 0.63 H (0.11-0.59) K/uL Eos # (Auto) 0.16 (0-0.5) K/uL Baso # (Auto) 0.01 (0-0.2) K/uL Immature Gran # (Auto) 0.01 (0.00-0.02) K/uL PT (9.0-12.0) Seconds INR (0.9-1.1) APTT (21.0-31.0) Seconds PTT Ratio Sodium (136-145) mmol/L Potassium (3.5-5.1) mmol/L Chloride (98-107) mmol/L Carbon Dioxide (21-32) mmol/L Anion Gap (3-11) BUN (7-18) mg/dl Creatinine (0.6-1.4) mg/dl Est Cr Clr Drug Dosing ml/min Est GFR ( Amer) Est GFR (Non-Af Amer) BUN/Creatinine Ratio (10-20) Glucose (70-99) mg/dl POC Glucose 76 68 L* (70-99) mg/dl Calcium (8.5-10.1) mg/dl Total Bilirubin (0.2-1) mg/dl Direct Bilirubin (0-0.2) mg/dl AST (15-37) U/L ALT (12-78) U/L Alkaline Phosphatase (45-117) U/L Total Protein (6.4-8.2) gm/dl Albumin (3.4-5.0) gm/dl 02/08/20 02/08/20 02/08/20 Range/Units 06:17 06:17 06:17 WBC (4.8-10.8) K/uL RBC (4.7-6.1) M/uL Hgb 10.2 L (14.0-18.0) g/dL Hct 33.3 L (42-52) % MCV (80-100) fL MCH (25-34) pg MCHC (32-36) g/dL RDW Std Deviation (36.4-46.3) fL RDW Coeff of Joey (11.5-14.5) % Plt Count (130-400) K/uL MPV (7.4-10.4) fL Immature Gran % (Auto) % Neut % (Auto) % Lymph % (Auto) % [place] % (Auto) % Eos % (Auto) % Baso % (Auto) % Neut # (Auto) (1.4-6.5) K/uL Lymph # (Auto) (1.2-3.4) K/uL [place] # (Auto) (0.11-0.59) K/uL Eos # (Auto) (0-0.5) K/uL Baso # (Auto) (0-0.2) K/uL Immature Gran # (Auto) (0.00-0.02) K/uL PT (9.0-12.0) Seconds INR (0.9-1.1) APTT (21.0-31.0) Seconds PTT Ratio Sodium 140 (136-145) mmol/L Potassium 4.2 (3.5-5.1) mmol/L Chloride 109 H (98-107) mmol/L Carbon Dioxide 27 (21-32) mmol/L Anion Gap 4.0 (3-11) BUN 69 H (7-18) mg/dl Creatinine 3.36 H D (0.6-1.4) mg/dl Est Cr Clr Drug Dosing 27.5 ml/min Est GFR ( Amer) 20.9 Est GFR (Non-Af Amer) 18.0 BUN/Creatinine Ratio 20.4 H (10-20) Glucose 69 L (70-99) mg/dl POC Glucose (70-99) mg/dl Calcium 9.4 (8.5-10.1) mg/dl Total Bilirubin 0.4 (0.2-1) mg/dl Direct Bilirubin 0.2 (0-0.2) mg/dl AST 23 (15-37) U/L ALT 45 (12-78) U/L Alkaline Phosphatase 110 (45-117) U/L Total Protein 6.6 (6.4-8.2) gm/dl Albumin 3.1 L (3.4-5.0) gm/dl 02/08/20 02/07/20 02/07/20 Range/Units 06:17 20:20 16:35 WBC (4.8-10.8) K/uL RBC (4.7-6.1) M/uL Hgb (14.0-18.0) g/dL Hct (42-52) % MCV (80-100) fL MCH (25-34) pg MCHC (32-36) g/dL RDW Std Deviation (36.4-46.3) fL RDW Coeff of Joey (11.5-14.5) % Plt Count (130-400) K/uL MPV (7.4-10.4) fL Immature Gran % (Auto) % Neut % (Auto) % Lymph % (Auto) % [place] % (Auto) % Eos % (Auto) % Baso % (Auto) % Neut # (Auto) (1.4-6.5) K/uL Lymph # (Auto) (1.2-3.4) K/uL [place] # (Auto) (0.11-0.59) K/uL Eos # (Auto) (0-0.5) K/uL Baso # (Auto) (0-0.2) K/uL Immature Gran # (Auto) (0.00-0.02) K/uL PT 14.5 H (9.0-12.0) Seconds INR 1.4 H (0.9-1.1) APTT (21.0-31.0) Seconds PTT Ratio Sodium (136-145) mmol/L Potassium (3.5-5.1) mmol/L Chloride (98-107) mmol/L Carbon Dioxide (21-32) mmol/L Anion Gap (3-11) BUN (7-18) mg/dl Creatinine (0.6-1.4) mg/dl Est Cr Clr Drug Dosing ml/min Est GFR ( Amer) Est GFR (Non-Af Amer) BUN/Creatinine Ratio (10-20) Glucose (70-99) mg/dl POC Glucose 186 H 213 H (70-99) mg/dl Calcium (8.5-10.1) mg/dl Total Bilirubin (0.2-1) mg/dl Direct Bilirubin (0-0.2) mg/dl AST (15-37) U/L ALT (12-78) U/L Alkaline Phosphatase (45-117) U/L Total Protein (6.4-8.2) gm/dl Albumin (3.4-5.0) gm/dl 02/07/20 Range/Units 13:50 WBC (4.8-10.8) K/uL RBC (4.7-6.1) M/uL Hgb (14.0-18.0) g/dL Hct (42-52) % MCV (80-100) fL MCH (25-34) pg MCHC (32-36) g/dL RDW Std Deviation (36.4-46.3) fL RDW Coeff of Joey (11.5-14.5) % Plt Count (130-400) K/uL MPV (7.4-10.4) fL Immature Gran % (Auto) % Neut % (Auto) % Lymph % (Auto) % [place] % (Auto) % Eos % (Auto) % Baso % (Auto) % Neut # (Auto) (1.4-6.5) K/uL Lymph # (Auto) (1.2-3.4) K/uL [place] # (Auto) (0.11-0.59) K/uL Eos # (Auto) (0-0.5) K/uL Baso # (Auto) (0-0.2) K/uL Immature Gran # (Auto) (0.00-0.02) K/uL PT (9.0-12.0) Seconds INR (0.9-1.1) APTT (21.0-31.0) Seconds PTT Ratio Sodium 141 (136-145) mmol/L Potassium 4.0 (3.5-5.1) mmol/L Chloride 108 H (98-107) mmol/L Carbon Dioxide 27 (21-32) mmol/L Anion Gap 6.0 (3-11) BUN 79 H (7-18) mg/dl Creatinine 4.02 H (0.6-1.4) mg/dl Est Cr Clr Drug Dosing 23.0 ml/min Est GFR ( Amer) 16.8 Est GFR (Non-Af Amer) 14.5 BUN/Creatinine Ratio 19.7 (10-20) Glucose 185 H (70-99) mg/dl POC Glucose (70-99) mg/dl Calcium 9.3 (8.5-10.1) mg/dl Total Bilirubin (0.2-1) mg/dl Direct Bilirubin (0-0.2) mg/dl AST (15-37) U/L ALT (12-78) U/L Alkaline Phosphatase (45-117) U/L Total Protein (6.4-8.2) gm/dl Albumin (3.4-5.0) gm/dl Medications Administered Current Inpatient Medications Acetaminophen (Acetaminophen 325 Mg Tab) 650 mg PO Q4H PRN PRN Reason: Pain or Fever Stop: 03/05/20 14:37 Albuterol (Albuterol Hfa 8 Gm Inhaler) 2 puffs INH Q4H PRN PRN Reason: Shortness Of Breath Or Wheezing Stop: 03/05/20 14:48 Albuterol (Albut/Ipratrop 3mg/0.5mg Neb 3 Ml Vial) 3 ml INH QID PRN PRN Reason: Shortness Of Breath Or Wheezing Stop: 03/05/20 14:37 Aspirin (Aspirin 81 Mg Ectab) 81 mg PO DAILY ALYSIA Stop: 03/05/20 14:59 Last Admin: 02/06/20 07:51 Dose: 81 mg Documented by: Dextrose (Dextrose 50% 50 Ml Syringe) 25 - 50 ml IV UD PRN; Protocol PRN Reason: Hypoglycemia Protocol Stop: 03/07/20 04:14 Fluticasone Propionate (Fluticasone Propionate Na Spr 16 Gm Btl) 2 sprays NA DAILY PRN PRN Reason: Nasal Congestion Stop: 03/05/20 14:37 Fluticasone/Vilanterol (Fluticasone/Vilanterol 200/25mcg 14 Puffs/Inhaler) 1 p uffs INH DAILY ALYSIA; Protocol Stop: 03/06/20 08:59 Last Admin: 02/08/20 09:46 Dose: 1 puffs Documented by: Gabapentin (Gabapentin 100 Mg Cap) 100 mg PO TIDM ALYSIA Stop: 03/05/20 14:59 Last Admin: 02/08/20 12:48 Dose: 100 mg Documented by: Glucagon (Glucagon For Inj 1 Mg Vial) 1 mg SQ UD PRN; Protocol PRN Reason: Hypoglycemia Protocol Stop: 03/07/20 04:14 Glucose (Glucose 40% Gel 15 Gm Tube) 15 - 30 gm PO UD PRN; Protocol PRN Reason: Hypoglycemia Protocol Stop: 03/07/20 04:14 Glucose (Glucose 10 Tabs/Tube) 4 - 8 tabs PO UD PRN; Protocol PRN Reason: Hypoglycemia Protocol Stop: 03/07/20 04:14 Hydralazine HCl (Hydralazine Hcl 25 Mg Tab) 75 mg PO TID ALYSIA Stop: 03/05/20 14:59 Last Admin: 02/08/20 12:47 Dose: 75 mg Documented by: Heparin Sodium/Dextrose (Heparin Sodium/Dextrose) 25,000 units in 500 mls @ 20 mls/hr IV .Q24H ALYSIA; Protocol Stop: 03/09/20 08:29 Last Admin: 02/08/20 10:46 Dose: 1,000 units/hr, 20 mls/hr Documented by: Pantoprazole Sodium 40 mg/ (Dextrose) 100 mls @ 20 mls/hr IV Q5H ALYSIA Stop: 03/09/20 08:29 Last Admin: 02/08/20 09:44 Dose: 8 mg/hr, 20 mls/hr Documented by: Cefepime HCl 2,000 mg/ Syringe 20 mls @ 5 mls/min IV DAILY ALYSIA; Protocol Stop: 02/22/20 08:59 Last Admin: 02/08/20 09:45 Dose: 5 mls/min Documented by: Insulin Aspart (Insulin Aspart 100 Units/Ml 3 Ml Pen) 0 units SC AC ALYSIA; Protocol Stop: 03/08/20 11:29 Last Admin: 02/08/20 12:49 Dose: 2 units Documented by: Insulin Aspart (Insulin Aspart 100 Units/Ml 3 Ml Pen) 0 units SC HS ALYSIA; Protocol Stop: 03/08/20 20:59 Last Admin: 02/07/20 20:50 Dose: 3 units Documented by: Isosorbide Dinitrate (Isosorbide Dinitrate 10 Mg Tab) 30 mg PO TIDM ALYSIA Stop: 03/05/20 14:59 Last Admin: 02/08/20 12:47 Dose: 30 mg Documented by: Lactobacillus Acidophilus (Lactobacillus Acidophilus 1 Gm Pack) 1 gm PO TIDM ALYSIA Stop: 03/07/20 16:59 Last Admin: 02/08/20 12:46 Dose: Not Given Documented by: Metoprolol Succinate (Metoprolol Succ 50mg Ext Rel Tab) 100 mg PO DAILY ALYSIA Stop: 03/05/20 14:59 Last Admin: 02/08/20 09:42 Dose: 100 mg Documented by: Miscellaneous (Carbohydrates For Hypoglycemia ) 15 - 30 gm PO UD PRN PRN Reason: Hypoglycemia Treatment Stop: 03/07/20 04:14 Last Admin: 02/07/20 08:00 Dose: 15 gm Documented by: Miscellaneous Information (Pharmacy Glycemic Mgmt Consult) 1 ea N/A UD PRN PRN Reason: Consult Stop: 03/05/20 17:00 Miscellaneous Information (Consult Pharmacy) 1 ea N/A NOW STA Stop: 02/08/20 13:10 Nitroglycerin (Nitroglycerin Sl 0.4 Mg/Tab Tab) 0.4 mg SL UD PRN PRN Reason: Chest Pain Stop: 03/05/20 14:37 Ondansetron HCl (Ondansetron Inj 2 Mg/Ml 2 Ml Vial) 4 mg IV Q6H PRN PRN Reason: Nausea Stop: 03/05/20 14:37 Oxycodone/Acetaminophen (Oxycodone/Acetaminophen 5mg/325mg Tab) 1 tab PO Q4H PRN PRN Reason: Pain Stop: 02/21/20 18:16 Polyethylene Glycol (Polyethylene (Miralax) 17 Gm Pack) 17 gm PO DAILY PRN PRN Reason: Constipation Stop: 03/05/20 14:37 Rosuvastatin Calcium (Rosuvastatin Calcium 20 Mg Tab) 40 mg PO HS ALYSIA Stop: 03/05/20 20:59 Last Admin: 02/07/20 20:49 Dose: 40 mg Documented by: Vitamin D (Cholecalciferol 1,000 Units 25 Mcg Tab) 2,000 units PO DAILY ALYSIA Stop: 03/06/20 08:59 Last Admin: 02/08/20 09:41 Dose: 2,000 units Documented by: Warfarin Sodium (Warfarin Sod 7.5 Mg Tab) 7.5 mg PO [id number] ALYSIA Stop: 03/05/20 15:59 Last Admin: 02/05/20 15:53 Dose: 7.5 mg Documented by: Warfarin Sodium (Warfarin Sod 10 Mg Tab) 10 mg PO [email or web address] ALYSIA Stop: 03/07/20 15:59 (1) Pneumonia Laterality: right Lung location: lower lobe of lung Pneumonia type: due to unspecified organism Qualified Code(s): J18.9 - Pneumonia, unspecified organism
[2020-02-08 13:25] LABS: Partial Thromboplastin Ratio 1.3; Partial Thromboplastin Time 37.1 Seconds (21.0-31.0)
[2020-02-08] MEDS ORDERED: CEFEPIME CONSULT ACTIVE PRN (13:37)
--- NOTE | 2020-02-08 14:26 | Pharmacy Report ---
Pharmacy Glycemic Short Note 2 - Date of Service February 08, 2020 - Glycemic Short BSG Results (Last 24 hours): 02/07/20 02/07/20 02/07/20 13:50 16:35 20:20 Glucose 185 H POC Glucose 213 H 186 H 02/08/20 02/08/20 02/08/20 06:17 07:51 07:52 Glucose 69 L POC Glucose 68 L* 76 02/08/20 11:21 Glucose POC Glucose 163 H OUTPATIENT ANTIDIABETIC REGIMEN: * A1c 9.0% 02/05/20- CKD stage IV, acute kidney injury * Humalog 5 units iwth breakfast, 10 units with lunch, 20 units with supper * lantus 75 units daily ASSESSMENT: 02/08/20: * Fasting BSG was low this AM at 69. Additionally plan for patient to go NPO today for possible GI procedure. So, Lantus dose was reduced by ~50% to 15 units this AM. Pt did have a breakfast tray this AM. * Post prandial BSG today at lunch was only slightly elevated at 163. At this time patient was made NPO. * Once a diet is ordered, patient will probably need more basal insulin. However, we do not know yet if it will be ordered today. So will hold off on adding more Lantus today. * Will continue with current Novolog parameters. 02/07/20: * Pt with severe HIGH BSG last night at HS. However, on repeat/re-check BSG and plasma GLU draw BSG only mildly elevated. Hyperglycemia was over-corrected at HS leading to a LOW BSG this AM. * Pt with symptomatic LOW BSG this AM- pt felt lightheaded and dizzy. Consumed 90g CHO at breakfast and was to get 25+ units of NovoLog for breakfast coverage. Spoke with RN and ordered 15 units of NovoLog instead of 25 units to prevent re-peat low at lunch. * Will adjust HS parameters of NovoLog to prevent over-correction at HS leading to AM LOW BSG. 02/06/20 * Patient received 135 units of insulin yesterday, 40 units of basal, 95 units of bolus * Fasting this morning 91 mg/dL- will decrease lantus dose ~13% to 35 units daily, previous recent admission maintained on 32-40 units daily * Slightly loosened CF/CR today as SCR continues to trend upward and expect dexamethasone to be wearing off, may need to loosen again tomorrow 02/05/20 65 year old male admitted with sepsis, PAM, on IV antibiotics, hyperglycemic started on IV insulin drip last evening, partially due to IV Dexamethasone. * Type 2 diabetic, not well controlled on insulin at home, updated A1c ordered. * Insulin drip on hold at 0600, will transition to SQ regimen, with more aggressive parameters as IV steroids are still wearing off. * Patient has required much lower doses of insulin while inpatient vs home regimen during previous admissions. * ADA & AACE recommend a goal blood sugar range 140-180 mg/dl for the majority of critically ill & non-critically ill patients. However, more stringent targets may be selected in individual cases. Will utilize more stringent goal of 110-140mg/dl based on patient age & comorbidities. Additionally, tighter glycemic control is warranted to facilitate wound/infection healing. PLAN FOR INPATIENT GLYCEMIC CONTROL: * Hold outpatient oral diabetes medications * Basal insulin * Lantus 15 units SQ today AM. * Bolus insulin: continue * NovoLog per scale AC * Goal Range: Low 110 mg/dL - High 140 mg/dL * Correction Factor: 12 mg/dL/unit * Nutritional / Prandial insulin per carb ratio of 1 unit per 3.5 grams CHO consumed * Bolus insulin: continue * NovoLog per scale HS ONLY (significantly loosened parameters) * Goal Range: Low 110 mg/dL - High 140 mg/dL * Correction Factor: 40 mg/dL/unit * Nutritional / Prandial insulin per carb ratio of 1 unit per 13 grams CHO consumed
--- NOTE | 2020-02-08 15:13 | CT Scan Report ---
CT SCAN OF THE LUMBAR SPINE WITHOUT IV CONTRAST CLINICAL HISTORY: Low back pain. Hip pain. COMPARISON STUDY: Abdominal CT dated 06/05/2019. TECHNIQUE: CT scan of the lumbar spine is performed from the lower thoracic spine to the sacrum. Imag es are reviewed in the axial, sagittal, and coronal planes. IV contrast was not administered for this examination. A dose lowering technique was utilized adhering to the principles of ALARA. CT DOSE: 696.25 mGy.cm FINDINGS: The skeletal structures are osteopenic. There is no evidence of fracture or malalignment in volving the lumbar spine. A hemitransitional lumbosacral vertebral body will be labeled S1 for the pu rposes of this examination. Vertebral body height and alignment are maintained. The transverse and sp inous processes are intact. There is no spondylolysis. No lytic or blastic lesion is seen. Mild facet arthropathy is noted in the lower lumbar region. Posterior disc osteophyte complexes are noted at L3 -L4, L4-L5, and L5-S1. There is no CT evidence of high-grade central canal stenosis. Disc bulge eccen tric to the left at L3-L4 causes subarticular stenosis and likely impinges on the exiting left L3 ner ve root. Disc bulge at L5-S1 causes bilateral subarticular stenosis and may impinge on the exiting bi lateral L5 nerve roots. The visualized sacrum and bony pelvis appear intact. The paraspinous soft tis sues are normal as imaged. There is advanced atherosclerotic calcification of the abdominal aorta. Po stoperative change is noted in the left upper retroperitoneal region. A 3.9 cm cyst is partially imag ed in the left kidney. IMPRESSION: 1. No acute bony abnormality is seen involving the lumbar spine. 2. Degenerative disc disease as above. 3. There is no CT evidence of high-grade central canal stenosis. ACT 112: Negative or not required by law. Dictated: 02/08/2020 2:19 PM Transcribed: 02/08/2020 2:46 PM Mary [id number] [email or web address] Electronically signed by: Guerrero Hebert M.D. 02/08/2020 3:12 PM
--- NOTE | 2020-02-08 15:29 | Ultrasound Report ---
ULTRASOUND RIGHT UPPER QUADRANT ABDOMEN CLINICAL HISTORY: Gallstones. Right upper quadrant abdominal pain. Fever. COMPARISON STUDY: Abdominal ultrasound dated 07/01/2019. Abdominal CT dated 06/05/2019. TECHNIQUE: Real-time, grayscale, and color flow sonography of the right upper quadrant of the abdomen was performed. Images are reviewed in the transverse and longitudinal planes. FINDINGS: Liver: The liver is normal in size and echotexture. There is no intrahepatic biliary ductal dilatatio n. The main portal vein is patent. Gallbladder: Small gallstones are noted. The gallbladder is otherwise normal in appearance. There is no gallbladder wall thickening or pericholecystic fluid. A sonographic Baumann's sign is reportedly ab sent. The common bile duct measures up to 0.5 cm in diameter. Pancreas: Visualized portions of the pancreatic head and body are normal in appearance. Right kidney: Survey images of the right kidney demonstrate cortical atrophy. Echotexture is normal. There is no hydronephrosis. Ascites: None. IMPRESSION: 1. Cholelithiasis without sonographic evidence of acute cholecystitis. 2. No intra or extrahepatic biliary ductal dilatation is identified. ACT 112: Negative or not required by law. Electronically signed by: Guerrero Hebert M.D. 02/08/2020 3:27 PM
[2020-02-08 17:07] LABS: Partial Thromboplastin Ratio 1.5; Partial Thromboplastin Time 42.3 Seconds (21.0-31.0)
[2020-02-08] MEDS ORDERED: HEPARIN IV BOLUS 4,000 UNITS in SYRINGE 0 ML IV ONE (18:00)
[2020-02-08] MEDS: ROSUVASTATIN CALCIUM 20 MG TAB PO SCH (20:26)
[2020-02-09 00:45] LABS: Partial Thromboplastin Ratio 2.3
[2020-02-09 00:52] LABS: Partial Thromboplastin Time 65.5 Seconds (21.0-31.0)
[2020-02-09] MEDS: PANTOprazole 40 MG in DEXTROSE 5% 100 ML IV SCH ×5 (03:34→22:34)
[2020-02-09 07:14] LABS: Hematocrit (blood only) 33.8 % (42-52); Hemoglobin 10.5 g/dL (14.0-18.0); Mean Corpuscular Hgb Conc 31.1 g/dL (32-36); Mean Corpuscular Volume 83.7 fL (80-100); Mean Platelet Volume 9.2 fL (7.4-10.4); Platelet Count 114 K/uL (130-400); RDW Standard Deviation 48.9 fL (36.4-46.3); Red Blood Count 4.04 M/uL (4.7-6.1)
[2020-02-09 07:25] LABS: INR 1.2 (0.9-1.1)
[2020-02-09 07:47] LABS: BUN Creatinine Ratio 18.9 (10-20); Calcium 9.3 mg/dl (8.5-10.1); Creatinine Clr Calc Pharmacy 32.2 ml/min; Est GFR (African American) 25.4; Est GFR (Non-African American) 21.9
[2020-02-09] MEDS: HEPARIN SODIUM/DEXTROSE 25,000 UNITS/500 ML BAG IV SCH (07:59)
[2020-02-09] MEDS: CEFEPIME 2,000 MG in SYRINGE 0 ML IV SCH (08:00)
[2020-02-09] MEDS: GABAPENTIN 100 MG CAP PO SCH ×3 (08:05→17:26)
[2020-02-09] MEDS: CHOLECALCIFEROL 1,000 UNITS 25 MCG TAB PO SCH (08:05)
[2020-02-09] MEDS: hydrALAZINE HCL 25 MG TAB PO SCH ×3 (08:05→20:57)
[2020-02-09] MEDS: LACTOBACILLUS ACIDOPHILUS 1 GM PACK PO SCH ×3 (08:05→16:55)
[2020-02-09] MEDS: ISOSORBIDE DINITRATE 10 MG TAB PO SCH ×3 (08:05→17:26)
[2020-02-09] MEDS: FLUTICASONE/VILANTEROL 200/25MCG 14 PUFFS/INHALER INH SCH (08:06)
[2020-02-09] MEDS: METOPROLOL SUCC 50MG EXT REL TAB PO SCH (08:06)
[2020-02-09] MEDS: INSULIN ASPART 100 UNITS/ML 3 ML PEN SC SCH ×4 (08:14→20:58)
--- NOTE | 2020-02-09 08:59 | Electrocardiogram Report ---
Test Reason : Blood Pressure : / mmHG Vent. Rate : 081 BPM Atrial Rate : 080 BPM P-R Int : 000 ms QRS Dur : 162 ms QT Int : 462 ms P-R-T Axes : 000 255 078 degrees QTc Int : 536 ms Ventricular-paced rhythm with frequent Premature ventricular complexes Abnormal ECG When compared with ECG of 06-FEB-2020 04:42, No significant change Confirmed by Shukri Roblero ([id number]) on 02/09/2020 8:58:35 AM Referred By: REFERRED SELF Confirmed By:Shukri Roblero
[2020-02-09] MEDS ORDERED: INSULIN GLARGINE SOLOSTAR 100 UNITS/ML 3 ML PEN SQ SCH (09:00)
--- NOTE | 2020-02-09 10:09 | Surgery Progress Note ---
Date of Service February 09, 2020 Assessment & Plan (1) Cholelithiasis: no evidence of cholecystitis on U/S WBC normal tolerating diet can f/u as outpatient if symptoms recur Admission and Anticipated Discharge Date Admission Date: February 04, 2020 Supervising Physician Co-Signing Physician Notes I personally saw and evaluated the patient with Ciaran Aquino PA-C and agree with the assessment and plan. 65 yo male with cholelithiasis, no signs of cholecystitis -Tolerating regular diet -Can follow up as outpatient if desires -Ok to discharge from surgical standpoint -Please call with any questions or concerns Subjective regular breakfast, no pain or nausea Physical Exam Gastrointestinal (Abdomen): Percussion/Palpation: abdomen soft; abdomen nontender Results & Data ([facility]) Vital Signs (Past 12 Hours) Vital Signs Temp Pulse Resp BP BP Pulse Ox 02/09/20 07:00 36.6 C 75 18 172/104 H 165/105 H 94 02/08/20 23:17 36.5 C 82 19 146/91 H 96 PG Care Time/CCT Total # of Minutes Spent Total Time Spent with Patient: Total time spent is greater than 50% in coordination of care (as documented) at patient's floor/unit and/or counseling patient: Coding Level of Care Code 37548 Subseq Hosp Care Lvl 1 Diagnoses Cholelithiasis K80.20
--- NOTE | 2020-02-09 11:01 | Gastroenterology Progress Note ---
Date of Service February 09, 2020 Assessment & Plan (1) Abdominal pain: Suspect that cause of abd pain prior to arrival may have been biliary colic. He likely passed a gallstone. 1. Appreciate gen surgery opinion. 2. GI will sign off. 3. No OP GI f/u required. 4. Pt to contact surgery for appt if pain and/or interested in cholecystectomy for symptomatic gallstones. (2) Occult blood positive stool: Though dark BMs are noted, he recently underwent EGD in November w/o abnormalities. He has not had a significant drop in Hb. Would defer EGD unless obvious, gross GI bleeding. Admission and Anticipated Discharge Date Admission Date: February 04, 2020 Supervising Physician Co-Signing Physician Notes I saw and evaluated the patient this afternoon. He notes his abdominal pain has resolved. The patient has had 2 recent episodes of abdominal pain 1 with pancreatitis and the other with elevation of his liver enzymes that have resolved. I suspect this is related to his cholelithiasis and wonder if he would be best served with a cholecystectomy he did see general surgery they are planning to do watchful waiting at the present time. Please call with any questions or concerns GI to sign off Subjective 65 yr old male admitted for abd pain, nausea/vomiting. LFTs elevated on arrival but resolved to normal. US with gallstones, no choledocholithiasis. Refused MRCP (claustrophobia). Hb stable, EGD in November 2019 w/o abnormalities that would cause bleeding. Review of Systems Review of Systems: ROS: (today): Gen: Denies weakness, fevers, weight loss Eyes: No eye redness, or pain, no recent vision changes Resp: No SOB, no cough Cardio: No palpitations/irregular beats, no chest pain GI: No abdominal pain, no nausea/vomiting : Denies pain on urination Skin: No jaundice, itching or new rashes Physical Exam Constitutional: WD/WN, vitals as above + obese Eyes: PERRL, conjunctivae normal, anicteric sclerae ENMT: external ear and nose normal, oropharynx normal Neck: trachea midline, no thyromegaly Respiratory: normal respiratory effort, lungs clear to auscultation Cardiovascular: Rate/Rhythm: regular rate and regular rhythm Heart Sounds: + murmur (2/6 systolic) Extremities: + edema (mild bilat lower, compression stockings in place) Gastrointestinal (Abdomen): Inspection/Auscultation: + abdomen distended (appears distended but pt reports that the abd is his typical size) Percussion/Palpation: abdomen soft; abdomen nontender, no guarding and no ascites Musculoskeletal: no cyanosis or clubbing, extremities motor strength 5/5 Skin: no rashes, warm and dry Neurologic: PERRL, EOMI, accommodation nl, no face palsy, no dysarthria Psychiatric: A+Ox3, euthymic affect Insight: + poor insight Lymphatic: no cervical or axillary lymphadenopathy Results & Data ([facility]) Vital Signs (Past 12 Hours) Vital Signs Temp Pulse Resp BP BP Pulse Ox 02/09/20 07:00 36.6 C 75 18 172/104 H 165/105 H 94 02/08/20 23:17 36.5 C 82 19 146/91 H 96
[2020-02-09] MEDS ORDERED: WARFARIN SOD 5 MG TAB PO STA (11:11)
[2020-02-09] MEDS ORDERED: WARFARIN SOD 2 MG TAB PO STA (11:13)
--- NOTE | 2020-02-09 13:09 | Progress Notes ---
DATE: 02/09/2020 SUBJECTIVE: Overnight, no new issues. GI bleeding did not buffing turner and counter to be anything significant as hemoglobin has been stable. He has since then been seen by gastroenterology as well as general surgeon and no further issues noted at this time. He is tolerating normal food without any problem. PHYSICAL EXAMINATION: VITAL SIGNS: Blood pressure is running somewhat high, most recent one 172/104, pulse rate 75, temperature 36.6, 94% on room air. HEENT: Mucous membranes moist. NECK: Supple. No jugular venous distention. CHEST: Bilateral clear to auscultation. CARDIOVASCULAR: S1, S2 regular. ABDOMEN: Soft, nontender. EXTREMITIES: Shows no edema. LABORATORY TESTS: From this morning shows creatinine is down to baseline now at 2.86, BUN 54. Sodium 140, potassium 4.0, hemoglobin 10.5 and stable, platelet count 114. ASSESSMENT AND PLAN: A 65-year-old male with Enterobacter bacteremia, presenting with sepsis-like syndrome. The patient has extensive list of medical problem including type 2 diabetes, cardiac disease, pulmonary disease and CKD stage IV with a baseline creatinine of 3. 1. Acute renal failure. Renal function is back to baseline creatinine. Blood pressure is running high as we held both the torsemide and lisinopril. Now that he is eating normal amount I would put him back on torsemide first at 10 mg daily. No further workup is needed from renal standpoint. 2. Bacteremia. Getting antibiotics.
[2020-02-09] MEDS: TORSEMIDE 10 MG TAB PO SCH (13:33)
[2020-02-09] MEDS: ROSUVASTATIN CALCIUM 20 MG TAB PO SCH (20:58)
--- NOTE | 2020-02-09 21:27 | Hospitalist Progress Note ---
Date of Service February 09, 2020 Assessment & Plan (1) Pneumonia: Sepsis : Admitted with fever /chills/rigot /SOB /-met criteria for sepsis Xray chest shows patchy airspace opacity -possible pneumonia has been afebrile since admission , stable vitals with resolution of cough and sob was on Iv rocephin Bacteremia : blood culture : 1 bottle Enterobacter cloacae -not sure of the source appreciate input from ID [facility] abx changed to Iv Cefepime, plan of total of 14 days of antibiotics (May discharge on Cipro if QTC not prolonged, will obtain EKG) repeat blood cultures ordered - NGTD Pt has prolonged QTc on resting EKG, will plan for 14 days of cefepime, will need US guided IV access plan of care updated to pt and Black tarry stool /concern for upper GI bleed : multiple episodes of melanotic stool -in setting of elevated INR no nausea /vomiting or abdominal pain INR was elevated > 4 coumadin and aspirin on hold given low dose vit K , INR 2.2 pt will need Iv heparin bridge when INR < 2 ( hx of recent embolic CVA with subtheraputic INR /was off coumadin for GI procedure ) follow H&H stool heme occult positive /C diff negative GI consult requested -given the patient's hemoglobin is stable, and no clear blood in stool noted, defer EGD at this time. Patient had EGD recently, just in November. Recommend MRCP however patient declines (claustrophobia). Right upper quadrant ultrasound ordered and surgery consult ordered for cholelithiasis. Type 2 DM : BSG improved appreciate input from pharmacy for glycemic management Acute renal failure on CKD STAGE 3 baseline cr 2.8-3 ; cr elevated > 3-> 4 -> 3.3 hold lasix and ACEI nephrology consulted -appreciate input Chronic afib : INR elevated hold coumadin Patient on IV heparin now restart warfarin, monitor INR Back pain with radiation to hip and knee : has chronic pain , worsening of symptoms in last few days , limiting his activit y CT lumber spine w/o contrast degenerative disease, no significant central canal stenosis, would consider spine ortho eval if significant spinal stenosis pain control , PT/OT volume overload /worsening lower ext swelling : diuretics been kept on hold for acute renal failure need to D/w Nephrology about diuretics keep legs elevated ordered for MELISSA montoya FULL [employer] plan of care D/w with pt and all questions answered Admission and Anticipated Discharge Date Admission Date: February 04, 2020 Subjective Pt is sitting up in chair in NAD, currently has no complaints. Denies any fever, chills, chest pain, shortness of breath, abd. pain, nausea or vomiting. Seen by GI and surgery, no further work up as inpt. Follow up w/ surgery as outpt recommended. Review of Systems Review of Systems: All systems reviewed & are unremarkable except as noted in HPI & below Constitutional: no fever and no chills Respiratory: no cough and no dyspnea Cardiovascular: no chest pain and no palpitations Gastrointestinal: no abdominal pain, no nausea and no vomiting Physical Exam Physical Exam: Constitutional: Elderly male, sitting up in chair, in no acute distress, WD/WN, vitals as above Eyes: PERRL, EOMI, conjunctivae normal, anicteric sclerae ENMT: external ear and nose normal, oropharynx normal Neck: trachea midline, no thyromegaly Respiratory: normal respiratory effort, lungs clear to auscultation Cardiovascular: RRR, no murmur, no edema Gastrointestinal (Abdomen): normal bowel sounds, soft, nontender, nondistended Musculoskeletal: no cyanosis or clubbing, extremities motor strength 5/5, moves extremities spontaneously Neurologic: PERRL, EOMI, no face palsy, no dysarthria, moves extremities spontaneously Psychiatric: A+Ox3, euthymic affect Results & Data Results & Data ([facility]) Vital Signs (Past 12 Hours) Vital Signs Temp Pulse Resp BP Pulse Ox 02/09/20 15:00 36.5 C 84 20 143/94 H 93 Laboratory Results 02/09/20 02/09/20 02/09/20 Range/Units 20:37 17:05 11:49 WBC (4.8-10.8) K/uL RBC (4.7-6.1) M/uL Hgb (14.0-18.0) g/dL Hct (42-52) % MCV (80-100) fL MCH (25-34) pg MCHC (32-36) g/dL RDW Std Deviation (36.4-46.3) fL RDW Coeff of Joey (11.5-14.5) % Plt Count (130-400) K/uL MPV (7.4-10.4) fL PT (9.0-12.0) Seconds INR (0.9-1.1) APTT (21.0-31.0) Seconds PTT Ratio Sodium (136-145) mmol/L Potassium (3.5-5.1) mmol/L Chloride (98-107) mmol/L Carbon Dioxide (21-32) mmol/L Anion Gap (3-11) BUN (7-18) mg/dl Creatinine (0.6-1.4) mg/dl Est Cr Clr Drug Dosing ml/min Est GFR ( Amer) Est GFR (Non-Af Amer) BUN/Creatinine Ratio (-) Glucose (70-99) mg/dl POC Glucose 117 H 151 H 144 H (70-99) mg/dl Calcium (8.5-10.1) mg/dl 02/09/20 02/09/20 02/09/20 Range/Units 07:35 06:55 06:55 WBC 4.90 (4.8-10.8) K/uL RBC 4.04 L (4.7-6.1) M/uL Hgb 10.5 L (14.0-18.0) g/dL Hct 33.8 L (42-52) % MCV 83.7 (80-100) fL MCH 26.0 (25-34) pg MCHC 31.1 L (32-36) g/dL RDW Std Deviation 48.9 H (36.4-46.3) fL RDW Coeff of Joey 16.0 H (11.5-14.5) % Plt Count 114 L (130-400) K/uL MPV 9.2 (7.4-10.4) fL PT (9.0-12.0) Seconds INR (0.9-1.1) APTT (21.0-31.0) Seconds PTT Ratio Sodium 140 (136-145) mmol/L Potassium 4.0 (3.5-5.1) mmol/L Chloride 109 H (98-107) mmol/L Carbon Dioxide 26 (21-32) mmol/L Anion Gap 5.0 (3-11) BUN 54 H (7-18) mg/dl Creatinine 2.86 H D (0.6-1.4) mg/dl Est Cr Clr Drug Dosing 32.2 ml/min Est GFR ( Amer) 25.4 Est GFR (Non-Af Amer) 21.9 BUN/Creatinine Ratio 18.9 (10-20) Glucose 99 (70-99) mg/dl POC Glucose 106 H (70-99) mg/dl Calcium 9.3 (8.5-10.1) mg/dl 02/09/20 02/09/20 Range/Units 06:55 00:14 WBC (4.8-10.8) K/uL RBC (4.7-6.1) M/uL Hgb (14.0-18.0) g/dL Hct (42-52) % MCV (80-100) fL MCH (25-34) pg MCHC (32-36) g/dL RDW Std Deviation (36.4-46.3) fL RDW Coeff of Joey (11.5-14.5) % Plt Count (130-400) K/uL MPV (7.4-10.4) fL PT 13.0 H (9.0-12.0) Seconds INR 1.2 H (0.9-1.1) APTT 65.5 H* (21.0-31.0) Seconds PTT Ratio 2.3 Sodium (136-145) mmol/L Potassium (3.5-5.1) mmol/L Chloride (98-107) mmol/L Carbon Dioxide (21-32) mmol/L Anion Gap (3-11) BUN (7-18) mg/dl Creatinine (0.6-1.4) mg/dl Est Cr Clr Drug Dosing ml/min Est GFR ( Amer) Est GFR (Non-Af Amer) BUN/Creatinine Ratio (10-20) Glucose (70-99) mg/dl POC Glucose (70-99) mg/dl Calcium (8.5-10.1) mg/dl Medications Administered Current Inpatient Medications Acetaminophen (Acetaminophen 325 Mg Tab) 650 mg PO Q4H PRN PRN Reason: Pain or Fever Stop: 03/05/20 14:37 Albuterol (Albuterol Hfa 8 Gm Inhaler) 2 puffs INH Q4H PRN PRN Reason: Shortness Of Breath Or Wheezing Stop: 03/05/20 14:48 Albuterol (Albut/Ipratrop 3mg/0.5mg Neb 3 Ml Vial) 3 ml INH QID PRN PRN Reason: Shortness Of Breath Or Wheezing Stop: 03/05/20 14:37 Aspirin (Aspirin 81 Mg Ectab) 81 mg PO DAILY [facility] Stop: 03/05/20 14:59 Last Admin: 02/06/20 07:51 Dose: 81 mg Documented by: Dextrose (Dextrose 50% 50 Ml Syringe) 25 - 50 ml IV UD PRN; Protocol PRN Reason: Hypoglycemia Protocol Stop: 03/07/20 04:14 Fluticasone Propionate (Fluticasone Propionate Na Spr 16 Gm Btl) 2 sprays NA DAILY PRN PRN Reason: Nasal Congestion Stop: 03/05/20 14:37 Fluticasone/Vilanterol (Fluticasone/Vilanterol 200/25mcg 14 Puffs/Inhaler) 1 puffs INH DAILY [facility]; Protocol Stop: 03/06/20 08:59 Last Admin: 02/09/20 08:06 Dose: 1 puffs Documented by: Gabapentin (Gabapentin 100 Mg Cap) 100 mg PO TIDM [facility] Stop: 03/05/20 14:59 Last Admin: 02/09/20 17:26 Dose: 100 mg Documented by: Glucagon (Glucagon For Inj 1 Mg Vial) 1 mg SQ UD PRN; Protocol PRN Reason: Hypoglycemia Protocol Stop: 03/07/20 04:14 Glucose (Glucose 40% Gel 15 Gm Tube) 15 - 30 gm PO UD PRN; Protocol PRN Reason: Hypoglycemia Protocol Stop: 03/07/20 04:14 Glucose (Glucose 10 Tabs/Tube) 4 - 8 tabs PO UD PRN; Protocol PRN Reason: Hypoglycemia Protocol Stop: 03/07/20 04:14 Hydralazine HCl (Hydralazine Hcl 25 Mg Tab) 75 mg PO TID [facility] Stop: 03/05/20 14:59 Last Admin: 02/09/20 20:57 Dose: 75 mg Documented by: Heparin Sodium/Dextrose (Heparin Sodium/Dextrose) 25,000 units in 500 mls @ 22 mls/hr IV .[id number] [facility]; Protocol Stop: 03/09/20 08:29 Last Titration: 02/09/20 18:58 Dose: 1,100 units/hr, 22 mls/hr Documented by: Pantoprazole Sodium 40 mg/ (Dextrose) 100 mls @ 20 mls/hr IV Q5H [facility] Stop: 03/09/20 08:29 Last Admin: 02/09/20 17:24 Dose: 8 mg/hr, 20 mls/hr Documented by: Cefepime HCl 2,000 mg/ Syringe 20 mls @ 5 mls/min IV DAILY [facility]; Protocol Stop: 02/22/20 08:59 Last Admin: 02/09/20 08:00 Dose: 5 mls/min Documented by: Insulin Aspart (Insulin Aspart 100 Units/Ml 3 Ml Pen) 0 units SC AC [facility]; Protocol Stop: 03/08/20 11:29 Last Admin: 02/09/20 17:26 Dose: 21 units Documented by: Insulin Aspart (Insulin Aspart 100 Units/Ml 3 Ml Pen) 0 units SC HS [facility]; Protocol Stop: 03/08/20 20:59 Last Admin: 02/09/20 20:58 Dose: Not Given Documented by: Insulin Glargine (Insulin Glargine Solostar 100 Units/Ml 3 Ml Pen) 30 units SQ DAILY [facility]; Protocol Stop: 03/10/20 08:59 Last Admin: 02/09/20 08:29 Dose: 30 units Documented by: Isosorbide Dinitrate (Isosorbide Dinitrate 10 Mg Tab) 30 mg PO TIDM [facility] Stop: 03/05/20 14:59 Last Admin: 02/09/20 17:26 Dose: 30 mg Documented by: Lactobacillus Acidophilus (Lactobacillus Acidophilus 1 Gm Pack) 1 gm PO TIDM [facility] Stop: 03/07/20 16:59 Last Admin: 02/09/20 16:55 Dose: Not Given Documented by: Metoprolol Succinate (Metoprolol Succ 50mg Ext Rel Tab) 100 mg PO DAILY [facility] Stop: 03/05/20 14:59 Last Admin: 02/09/20 08:06 Dose: 100 mg Documented by: Miscellaneous (Carbohydrates For Hypoglycemia ) 15 - 30 gm PO UD PRN PRN Reason: Hypoglycemia Treatment Stop: 03/07/20 04:14 Last Admin: 02/07/20 08:00 Dose: 15 gm Documented by: Miscellaneous Information (Pharmacy Glycemic Mgmt Consult) 1 ea N/A UD PRN PRN Reason: Consult Stop: 03/05/20 17:00 Miscellaneous Information (Cefepime Consult Active) 1 ea N/A UD PRN PRN Reason: Consult Stop: 03/09/20 13:36 Nitroglycerin (Nitroglycerin Sl 0.4 Mg/Tab Tab) 0.4 mg SL UD PRN PRN Reason: Chest Pain Stop: 03/05/20 14:37 Ondansetron HCl (Ondansetron Inj 2 Mg/Ml 2 Ml Vial) 4 mg IV Q6H PRN PRN Reason: Nausea Stop: 03/05/20 14:37 Oxycodone/Acetaminophen (Oxycodone/Acetaminophen 5mg/325mg Tab) 1 tab PO Q4H PRN PRN Reason: Pain Stop: 02/21/20 18:16 Polyethylene Glycol (Polyethylene (Miralax) 17 Gm Pack) 17 gm PO DAILY PRN PRN Reason: Constipation Stop: 03/05/20 14:37 Rosuvastatin Calcium (Rosuvastatin Calcium 20 Mg Tab) 40 mg PO HS [facility] Stop: 03/05/20 20:59 Last Admin: 02/09/20 20:58 Dose: 40 mg Documented by: Torsemide (Torsemide 10 Mg Tab) 10 mg PO QAM [facility] Stop: 03/10/20 13:29 Last Admin: 02/09/20 13:33 Dose: 10 mg Documented by: Vitamin D (Cholecalciferol 1,000 Units 25 Mcg Tab) 2,000 units PO DAILY [facility] Stop: 03/06/20 08:59 Last Admin: 02/09/20 08:05 Dose: 2,000 units Documented by: Warfarin Sodium (Warfarin Sod 10 Mg Tab) 10 mg PO QAM [facility] Stop: 03/11/20 08:59 Warfarin Sodium (Warfarin Sod 7.5 Mg Tab) 7.5 mg PO QAM [facility] Stop: 03/11/20 08:59 (1) Pneumonia Laterality: right Lung location: lower lobe of lung Pneumonia type: due to unspecified organism Qualified Code(s): J18.9 - Pneumonia, unspecified organism
[2020-02-10] MEDS: CARBOHYDRATES FOR HYPOGLYCEMIA PO PRN ×2 (03:45→04:00)
[2020-02-10] MEDS: PANTOprazole 40 MG in DEXTROSE 5% 100 ML IV SCH (03:52)
[2020-02-10] MEDS: HEPARIN SODIUM/DEXTROSE 25,000 UNITS/500 ML BAG IV SCH (04:48)
[2020-02-10 06:47] LABS: Hematocrit (blood only) 32.9 % (42-52); Hemoglobin 10.4 g/dL (14.0-18.0); Mean Corpuscular Hemoglobin 26.4 pg (25-34); Mean Corpuscular Hgb Conc 31.6 g/dL (32-36); Mean Corpuscular Volume 83.5 fL (80-100); Mean Platelet Volume 9.8 fL (7.4-10.4); Platelet Count 110 K/uL (130-400); RDW Coefficient of Variation 15.9 % (11.5-14.5); RDW Standard Deviation 49.1 fL (36.4-46.3); Red Blood Count 3.94 M/uL (4.7-6.1); White Blood Count 5.45 K/uL (4.8-10.8)
[2020-02-10 07:07] LABS: INR 1.2 (0.9-1.1); Partial Thromboplastin Ratio 1.7; Prothrombin Time 12.9 Seconds (9.0-12.0)
[2020-02-10 07:11] LABS: Partial Thromboplastin Time 46.8 Seconds (21.0-31.0)
[2020-02-10 07:21] LABS: BUN Creatinine Ratio 17.2 (10-20); Calcium 9.2 mg/dl (8.5-10.1); Creatinine Clr Calc Pharmacy 32.9 ml/min; Est GFR (African American) 26.3; Est GFR (Non-African American) 22.7; Potassium 3.7 mmol/L (3.5-5.1)
--- NOTE | 2020-02-10 08:37 | Hospitalist Progress Note ---
Date of Service February 10, 2020 Assessment & Plan (1) Pneumonia: Sepsis : Admitted with fever /chills/rigot /SOB /-met criteria for sepsis Xray chest shows patchy airspace opacity -possible pneumonia has been afebrile since admission , stable vitals with resolution of cough and sob was on Iv rocephin Bacteremia : blood culture : 1 bottle Enterobacter cloacae -not sure of the source appreciate input from ID [facility] abx changed to Iv Cefepime, plan of total of 14 days of antibiotics (May discharge on Cipro if QTC not prolonged, will obtain EKG) repeat blood cultures ordered - NGTD Pt has prolonged QTc on resting EKG, will plan for 14 days of cefepime, will need US guided IV access plan of care updated to pt and Black tarry stool /concern for upper GI bleed : multiple episodes of melanotic stool -in setting of elevated INR no nausea /vomiting or abdominal pain INR was elevated > 4 coumadin and aspirin on hold given low dose vit K , INR 2.2 pt will need Iv heparin bridge when INR < 2 ( hx of recent embolic CVA with subtheraputic INR /was off coumadin for GI procedure ) follow H&H stool heme occult positive /C diff negative GI consult requested -given the patient's hemoglobin is stable, and no clear blood in stool noted, defer EGD at this time. Patient had EGD recently, just in November. Recommend MRCP however patient declines (claustrophobia). Right upper quadrant ultrasound ordered and surgery consult ordered for cholelithiasis. Recommend to follow up with gen. surgery as outpt. Type 2 DM : BSG improved appreciate input from pharmacy for glycemic management Acute renal failure on CKD STAGE 3 baseline cr 2.8-3 ; cr elevated > 3-> 4 -> 3.3 held torsemide and ACEI initially Now torsemide resumed, plan to continue to hold lisinopril, pt will need to follow up with nephrology as outpt, at that time decide if pt should continue on ACEI nephrology consulted -appreciate input Chronic afib : INR elevated , coumadin was held Patient on IV heparin now restart warfarin, monitor INR Back pain with radiation to hip and knee : has chronic pain , worsening of symptoms in last few days , limiting his activity CT lumber spine w/o contrast degenerative disease, no significant central canal stenosis, would consider spine ortho eval if significant spinal stenosis pain control , PT/OT volume overload /worsening lower ext swelling : diuretics been kept on hold for acute renal failure need to D/w Nephrology about diuretics keep legs elevated ordered for MELISSA montoya FULL CODE plan of care D/w with pt and all questions answered Admission and Anticipated Discharge Date Admission Date: February 04, 2020 Subjective Pt is sitting up in chair in NAD, currently has no complaints. Denies any fever, chills, chest pain, shortness of breath, abd. pain, nausea or vomiting. Seen by GI and surgery, no further work up as inpt. Follow up w/ surgery as outpt recommended. Plan to place US guided IV access for Abx treatment as outpt. Review of Systems Review of Systems: All systems reviewed & are unremarkable except as noted in HPI & below Constitutional: no fever and no chills Respiratory: no cough and no dyspnea Cardiovascular: no chest pain and no palpitations Gastrointestinal: no abdominal pain, no nausea and no vomiting Physical Exam Physical Exam: Constitutional: Elderly male, sitting up in chair, in no acute distress, WD/WN, vitals as above Eyes: PERRL, EOMI, conjunctivae normal, anicteric sclerae ENMT: external ear and nose normal, oropharynx normal Neck: trachea midline, no thyromegaly Respiratory: normal respiratory effort, lungs clear to auscultation Cardiovascular: RRR, no murmur, no edema Gastrointestinal (Abdomen): normal bowel sounds, soft, nontender, nondistended Musculoskeletal: no cyanosis or clubbing, extremities motor strength 5/5, moves extremities spontaneously Neurologic: PERRL, EOMI, no face palsy, no dysarthria, moves extremities spontaneously Psychiatric: A+Ox3, euthymic affect Results & Data Results & Data ([facility]) Vital Signs (Past 12 Hours) Vital Signs Temp Pulse Resp BP Pulse Ox 02/10/20 08:00 36.8 C 76 18 145/91 H 99 02/09/20 22:56 36.4 C L 77 18 156/90 H 96 Laboratory Results 02/10/20 02/10/20 02/10/20 Range/Units 07:39 05:47 05:47 WBC 5.45 (4.8-10.8) K/uL RBC 3.94 L (4.7-6.1) M/uL Hgb 10.4 L (14.0-18.0) g/dL Hct 32.9 L (42-52) % MCV 83.5 (80-100) fL MCH 26.4 (25-34) pg MCHC 31.6 L (32-36) g/dL RDW Std Deviation 49.1 H (36.4-46.3) fL RDW Coeff of Joey 15.9 H (11.5-14.5) % Plt Count 110 L (130-400) K/uL MPV 9.8 (7.4-10.4) fL PT 12.9 H (9.0-12.0) Seconds INR 1.2 H (0.9-1.1) APTT 46.8 H* (21.0-31.0) Seconds PTT Ratio 1.7 Sodium (136-145) mmol/L Potassium (3.5-5.1) mmol/L Chloride (98-107) mmol/L Carbon Dioxide (21-32) mmol/L Anion Gap (3-11) BUN (7-18) mg/dl Creatinine (0.6-1.4) mg/dl Est Cr Clr Drug Dosing ml/min Est GFR ( Amer) Est GFR (Non-Af Amer) BUN/Creatinine Ratio (10-20) Glucose (70-99) mg/dl POC Glucose 112 H (70-99) mg/dl Calcium (8.5-10.1) mg/dl 02/10/20 02/10/20 02/10/20 Range/Units 05:47 04:29 03:59 WBC (4.8-10.8) K/uL RBC (4.7-6.1) M/uL Hgb (14.0-18.0) g/dL Hct (42-52) % MCV (80-100) fL MCH (25-34) pg MCHC (32-36) g/dL RDW Std Deviation (36.4-46.3) fL RDW Coeff of Joey (11.5-14.5) % Plt Count (130-400) K/uL MPV (7.4-10.4) fL PT (9.0-12.0) Seconds INR (0.9-1.1) APTT (21.0-31.0) Seconds PTT Ratio Sodium 141 (136-145) mmol/L Potassium 3.7 (3.5-5.1) mmol/L Chloride 108 H (98-107) mmol/L Carbon Dioxide 25 (21-32) mmol/L Anion Gap 7.0 (3-11) BUN 48 H (7-18) mg/dl Creatinine 2.78 H (0.6-1.4) mg/dl Est Cr Clr Drug Dosing 32.9 ml/min Est GFR ( Amer) 26.3 Est GFR (Non-Af Amer) 22.7 BUN/Creatinine Ratio 17.2 (10-20) Glucose 106 H (70-99) mg/dl POC Glucose 115 H 69 L* (70-99) mg/dl Calcium 9.2 (8.5-10.1) mg/dl 02/10/20 02/09/20 02/09/20 Range/Units 03:41 20:37 17:05 WBC (4.8-10.8) K/uL RBC (4.7-6.1) M/uL Hgb (14.0-18.0) g/dL Hct (42-52) % MCV (80-100) fL MCH (25-34) pg MCHC (32-36) g/dL RDW Std Deviation (36.4-46.3) fL RDW Coeff of Joey (11.5-14.5) % Plt Count (130-400) K/uL MPV (7.4-10.4) fL PT (9.0-12.0) Seconds INR (0.9-1.1) APTT (21.0-31.0) Seconds PTT Ratio Sodium (136-145) mmol/L Potassium (3.5-5.1) mmol/L Chloride (98-107) mmol/L Carbon Dioxide (21-32) mmol/L Anion Gap (3-11) BUN (7-18) mg/dl Creatinine (0.6-1.4) mg/dl Est Cr Clr Drug Dosing ml/min Est GFR ( Amer) Est GFR (Non-Af Amer) BUN/Creatinine Ratio (-20) Glucose (70-99) mg/dl POC Glucose 46 L* 117 H 151 H (70-99) mg/dl Calcium (8.5-10.1) mg/dl 02/09/20 Range/Units 11:49 WBC (4.8-10.8) K/uL RBC (4.7-6.1) M/uL Hgb (14.0-18.0) g/dL Hct (42-52) % MCV (80-100) fL MCH (25-34) pg MCHC (32-36) g/dL RDW Std Deviation (36.4-46.3) fL RDW Coeff of Joey (11.5-14.5) % Plt Count (130-400) K/uL MPV (7.4-10.4) fL PT (9.0-12.0) Seconds INR (0.9-1.1) APTT (21.0-31.0) Seconds PTT Ratio Sodium (136-145) mmol/L Potassium (3.5-5.1) mmol/L Chloride (98-107) mmol/L Carbon Dioxide (21-32) mmol/L Anion Gap (3-11) BUN (7-18) mg/dl Creatinine (0.6-1.4) mg/dl Est Cr Clr Drug Dosing ml/min Est GFR ( Amer) Est GFR (Non-Af Amer) BUN/Creatinine Ratio (-20) Glucose (70-99) mg/dl POC Glucose 144 H (70-99) mg/dl Calcium (8.5-10.1) mg/dl Medications Administered Current Inpatient Medications Acetaminophen (Acetaminophen 325 Mg Tab) 650 mg PO Q4H PRN PRN Reason: Pain or Fever Stop: 03/05/20 14:37 Albuterol (Albuterol Hfa 8 Gm Inhaler) 2 puffs INH Q4H PRN PRN Reason: Shortness Of Breath Or Wheezing Stop: 03/05/20 14:48 Albuterol (Albut/Ipratrop 3mg/0.5mg Neb 3 Ml Vial) 3 ml INH QID PRN PRN Reason: Shortness Of Breath Or Wheezing Stop: 03/05/20 14:37 Aspirin (Aspirin 81 Mg Ectab) 81 mg PO DAILY ALYSIA Stop: 03/05/20 14:59 Last Admin: 02/06/20 07:51 Dose: 81 mg Documented by: Dextrose (Dextrose 50% 50 Ml Syringe) 25 - 50 ml IV UD PRN; Protocol PRN Reason: Hypoglycemia Protocol Stop: 03/07/20 04:14 Fluticasone Propionate (Fluticasone Propionate Na Spr 16 Gm Btl) 2 sprays NA DAILY PRN PRN Reason: Nasal Congestion Stop: 03/05/20 14:37 Fluticasone/Vilanterol (Fluticasone/Vilanterol 200/25mcg 14 Puffs/Inhaler) 1 puffs INH DAILY ALYSIA; Protocol Stop: 03/06/20 08:59 Last Admin: 02/09/20 08:06 Dose: 1 puffs Documented by: Gabapentin (Gabapentin 100 Mg Cap) 100 mg PO TIDM ALYSIA Stop: 03/05/20 14:59 Last Admin: 02/09/20 17:26 Dose: 100 mg Documented by: Glucagon (Glucagon For Inj 1 Mg Vial) 1 mg SQ UD PRN; Protocol PRN Reason: Hypoglycemia Protocol Stop: 03/07/20 04:14 Glucose (Glucose 40% Gel 15 Gm Tube) 15 - 30 gm PO UD PRN; Protocol PRN Reason: Hypoglycemia Protocol Stop: 03/07/20 04:14 Glucose (Glucose 10 Tabs/Tube) 4 - 8 tabs PO UD PRN; Protocol PRN Reason: Hypoglycemia Protocol Stop: 03/07/20 04:14 Hydralazine HCl (Hydralazine Hcl 25 Mg Tab) 75 mg PO TID ALYSIA Stop: 03/05/20 14:59 Last Admin: 02/09/20 20:57 Dose: 75 mg Documented by: Heparin Sodium/Dextrose (Heparin Sodium/Dextrose) 25,000 units in 500 mls @ 22 mls/hr IV .[id number] ALYSIA; Protocol Stop: 03/09/20 08:29 Last Titration: 02/10/20 07:26 Dose: 1,100 units/hr, 22 mls/hr Documented by: Pantoprazole Sodium 40 mg/ (Dextrose) 100 mls @ 20 mls/hr IV Q5H ALYSIA Stop: 03/09/20 08:29 Last Admin: 02/10/20 03:52 Dose: 8 mg/hr, 20 mls/hr Documented by: Cefepime HCl 2,000 mg/ Syringe 20 mls @ 5 mls/min IV DAILY ALYSIA; Protocol Stop: 02/22/20 08:59 Last Admin: 02/09/20 08:00 Dose: 5 mls/min Documented by: Insulin Aspart (Insulin Aspart 100 Units/Ml 3 Ml Pen) 0 units SC AC [facility]; P rotocol Stop: 03/08/20 11:29 Last Admin: 02/09/20 17:26 Dose: 21 units Documented by: Insulin Aspart (Insulin Aspart 100 Units/Ml 3 Ml Pen) 0 units SC HS [facility]; Protocol Stop: 03/08/20 20:59 Last Admin: 02/09/20 20:58 Dose: Not Given Documented by: Insulin Glargine (Insulin Glargine Solostar 100 Units/Ml 3 Ml Pen) 15 units SQ DAILY [facility]; Protocol Stop: 03/11/20 08:59 Isosorbide Dinitrate (Isosorbide Dinitrate 10 Mg Tab) 30 mg PO TIDM [facility] Stop: 03/05/20 14:59 Last Admin: 02/09/20 17:26 Dose: 30 mg Documented by: Lactobacillus Acidophilus (Lactobacillus Acidophilus 1 Gm Pack) 1 gm PO TIDM [facility] Stop: 03/07/20 16:59 Last Admin: 02/09/20 16:55 Dose: Not Given Documented by: Metoprolol Succinate (Metoprolol Succ 50mg Ext Rel Tab) 100 mg PO DAILY [facility] Stop: 03/05/20 14:59 Last Admin: 02/09/20 08:06 Dose: 100 mg Documented by: Miscellaneous (Carbohydrates For Hypoglycemia ) 15 - 30 gm PO UD PRN PRN Reason: Hypoglycemia Treatment Stop: 03/07/20 04:14 Last Admin: 02/10/20 04:00 Dose: 15 gm Documented by: Miscellaneous Information (Pharmacy Glycemic Mgmt Consult) 1 ea N/A UD PRN PRN Reason: Consult Stop: 03/05/20 17:00 Miscellaneous Information (Cefepime Consult Active) 1 ea N/A UD PRN PRN Reason: Consult Stop: 03/09/20 13:36 Nitroglycerin (Nitroglycerin Sl 0.4 Mg/Tab Tab) 0.4 mg SL UD PRN PRN Reason: Chest Pain Stop: 03/05/20 14:37 Ondansetron HCl (Ondansetron Inj 2 Mg/Ml 2 Ml Vial) 4 mg IV Q6H PRN PRN Reason: Nausea Stop: 03/05/20 14:37 Oxycodone/Acetaminophen (Oxycodone/Acetaminophen 5mg/325mg Tab) 1 tab PO Q4H PRN PRN Reason: Pain Stop: 02/21/20 18:16 Polyethylene Glycol (Polyethylene (Miralax) 17 Gm Pack) 17 gm PO DAILY PRN PRN Reason: Constipation Stop: 03/05/20 14:37 Rosuvastatin Calcium (Rosuvastatin Calcium 20 Mg Tab) 40 mg PO HS [facility] Stop: 03/05/20 20:59 Last Admin: 02/09/20 20:58 Dose: 40 mg Documented by: Torsemide (Torsemide 10 Mg Tab) 10 mg PO QAM [facility] Stop: 03/10/20 13:29 Last Admin: 02/09/20 13:33 Dose: 10 mg Documented by: Vitamin D (Cholecalciferol 1,000 Units 25 Mcg Tab) 2,000 units PO DAILY [facility] Stop: 03/06/20 08:59 Last Admin: 02/09/20 08:05 Dose: 2,000 units Documented by: Warfarin Sodium (Warfarin Sod 10 Mg Tab) 10 mg PO [id number] [facility] Stop: 03/11/20 15:59 Warfarin Sodium (Warfarin Sod 7.5 Mg Tab) 7.5 mg PO [id number] [facility] Stop: 03/12/20 15:59 (1) Pneumonia Laterality: right Lung location: lower lobe of lung Pneumonia type: due to unspecified organism Qualified Code(s): J18.9 - Pneumonia, unspecified organism
[2020-02-10] MEDS: hydrALAZINE HCL 25 MG TAB PO SCH ×3 (08:44→20:43)
[2020-02-10] MEDS: GABAPENTIN 100 MG CAP PO SCH ×3 (08:44→17:25)
[2020-02-10] MEDS: LACTOBACILLUS ACIDOPHILUS 1 GM PACK PO SCH ×3 (08:45→17:29)
[2020-02-10] MEDS: ISOSORBIDE DINITRATE 10 MG TAB PO SCH ×3 (08:45→17:25)
[2020-02-10] MEDS: TORSEMIDE 10 MG TAB PO SCH (08:45)
[2020-02-10] MEDS: METOPROLOL SUCC 50MG EXT REL TAB PO SCH (08:46)
[2020-02-10] MEDS: FLUTICASONE/VILANTEROL 200/25MCG 14 PUFFS/INHALER INH SCH (08:46)
[2020-02-10] MEDS: CHOLECALCIFEROL 1,000 UNITS 25 MCG TAB PO SCH (08:46)
[2020-02-10] MEDS: INSULIN ASPART 100 UNITS/ML 3 ML PEN SC SCH ×4 (08:51→20:39)
[2020-02-10] MEDS ORDERED: INSULIN GLARGINE SOLOSTAR 100 UNITS/ML 3 ML PEN SQ SCH ×2 (09:00)
[2020-02-10] MEDS: PANTOprazole 40 MG TAB PO SCH ×2 (09:40→20:43)
[2020-02-10] MEDS: CEFEPIME 2,000 MG in SYRINGE 0 ML IV SCH ×2 (09:41→20:42)
--- NOTE | 2020-02-10 10:37 | Progress Notes ---
DATE: 02/10/2020 SUBJECTIVE: Overnight, no new issues. GI bleeding did not jewel bearing turner to be anything significant. He has already been seen by gastroenterology as well as general surgeon and has been cleared. He is tolerating normal food without any problem. Blood pressure today is somewhat better. PHYSICAL EXAMINATION: VITAL SIGNS: Most recent blood pressure 145/91, pulse rate 76, temperature 36.8, 99% on 3 liter nasal cannula. HEENT: Mucous membranes moist. NECK: Supple. No jugular venous distention. CHEST: Bilateral clear to auscultation. CARDIOVASCULAR: S1, S2 regular. ABDOMEN: Soft, nontender. EXTREMITIES: Shows no edema. LABORATORY TESTS: From this morning shows stable BUN and creatinine similar to his outpatient baseline creatinine. BUN 48, creatinine 2.78, potassium 3.7. Hemoglobin has been stable for the last few days, is 10.4 today. ASSESSMENT AND PLAN: A 65-year-old male with Enterobacter bacteremia, presenting with sepsis-like syndrome. The patient has extensive list of medical problems including type 2 diabetes, cardiac disease, pulmonary disease and CKD stage IV with a baseline creatinine of around 3. 1. Acute renal failure. Peak creatinine was 4 in the setting of sepsis, but is now back to baseline. I did restart him on his outpatient torsemide yesterday. Continue that at the time of discharge. He will need a nephrology followup within the next week or 2 and further decision about lisinopril can be made at that time. 2. Bacteremia. He will be on IV cefepime as per ID recommendation and might need IV access, which is being set up.
[2020-02-10] MEDS ORDERED: WARFARIN SOD 10 MG TAB PO ONE (11:00)
[2020-02-10] MEDS: INSULIN GLARGINE SOLOSTAR 100 UNITS/ML 3 ML PEN SQ SCH (12:36)
--- NOTE | 2020-02-10 15:08 | Pharmacy Report ---
Pharmacy Glycemic Short Note 2 - Date of Service February 10, 2020 - Glycemic Short BSG Results (Last 24 hours): 02/09/20 02/09/20 02/10/20 17:05 20:37 03:41 Glucose POC Glucose 151 H 117 H 46 L* 02/10/20 02/10/20 02/10/20 03:59 04:29 05:47 Glucose 106 H POC Glucose 69 L* 115 H 02/10/20 02/10/20 07:39 11:53 Glucose POC Glucose 112 H 203 H OUTPATIENT ANTIDIABETIC REGIMEN: * A1c 9.0% 02/05/20- CKD stage IV, acute kidney injury * Humalog 5 units iwth breakfast, 10 units with lunch, 20 units with supper * lantus 75 units daily ASSESSMENT: 02/09: * Patient received total of 80 units of insulin yesterday, of which 30 were basal * Fasting BSG low ~40s - tx with 45 gm CHO - recheck 115 mg/dL - held basal / restarted at lunch time ~40% decrease * Also loosened CF/CR PLAN FOR INPATIENT GLYCEMIC CONTROL: * Hold outpatient oral diabetes medications * Basal insulin * Lantus 18 units today * Bolus insulin: continue * NovoLog per scale AC * Goal Range: Low 110 mg/dL - High 140 mg/dL * Correction Factor: 15 mg/dL/unit * Nutritional / Prandial insulin per carb ratio of 1 unit per 5 grams CHO consumed * Bolus insulin: continue * NovoLog per scale HS ONLY (significantly loosened parameters) * Goal Range: Low 110 mg/dL - High 140 mg/dL * Correction Factor: 40 mg/dL/unit * Nutritional / Prandial insulin per carb ratio of 1 unit per 13 grams CHO consumed
[2020-02-10] MEDS ORDERED: WARFARIN SOD 10 MG TAB PO SCH (16:00)
[2020-02-10] MEDS: ROSUVASTATIN CALCIUM 20 MG TAB PO SCH (20:42)
[2020-02-11] MEDS ORDERED: INSULIN ASPART 100 UNITS/ML 3 ML PEN SC SCH
[2020-02-11] MEDS: HEPARIN SODIUM/DEXTROSE 25,000 UNITS/500 ML BAG IV SCH ×2 (03:37→07:49)
[2020-02-11 06:36] LABS: INR 1.2 (0.9-1.1); Partial Thromboplastin Ratio 1.6; Partial Thromboplastin Time 44.3 Seconds (21.0-31.0)
[2020-02-11 06:53] LABS: Creatinine Clr Calc Pharmacy 31.9 ml/min; Est GFR (African American) 25.3; Est GFR (Non-African American) 21.8
[2020-02-11] MEDS: LACTOBACILLUS ACIDOPHILUS 1 GM PACK PO SCH ×3 (07:09→17:24)
[2020-02-11] MEDS ORDERED: HEPARIN IV BOLUS 4,000 UNITS in SYRINGE 0 ML IV ONE (07:30)
--- NOTE | 2020-02-11 07:37 | Hospitalist Progress Note ---
Date of Service February 11, 2020 Assessment & Plan (1) Pneumonia: Sepsis : Admitted with fever /chills/rigot /SOB /-met criteria for sepsis Xray chest shows patchy airspace opacity -possible pneumonia has been afebrile since admission , stable vitals with resolution of cough and sob was on Iv rocephin Enterobacter bacteremia : Blood culture : 1 bottle Enterobacter cloacae - not sure of the source appreciate input from ID [facility] abx changed to Iv Cefepime, plan of total of 14 days of antibiotics (May discharge on Cipro if QTC not prolonged, will obtain EKG) repeat blood cultures ordered - NGTD Pt has prolonged QTc on resting EKG, will plan for 14 days of cefepime, US guided IV access obtained (02/10/2020), end date February 01, 2020 plan of care updated to pt and Black tarry stool /concern for upper GI bleed : multiple episodes of melanotic stool -in setting of elevated INR no nausea /vomiting or abdominal pain INR was elevated > 4 coumadin and aspirin on hold given low dose vit K , INR 2.2 pt will need Iv heparin bridge when INR < 2 (hx of recent embolic CVA with subtheraputic INR /was off coumadin for GI procedure) follow H&H stool heme occult positive /C diff negative GI consult requested - given the patient's hemoglobin is stable, and no clear blood in stool noted, defer EGD at this time. Patient had EGD recently, just in November. Recommend MRCP however patient declines (claustrophobia). Right upper quadrant ultrasound ordered and surgery consult ordered for cholelithiasis. Recommend to follow up with gen. surgery as outpt. Type 2 DM : BSG improved appreciate input from pharmacy for glycemic management Acute renal failure on CKD STAGE 3 Now back to baseline baseline Cr 2.8-3 ; Cr elevated > 3-> 4 -> 3.3 -> 2.8 (back to baseline) held torsemide and ACEI initially Nephrology consulted - appreciate their input Now torsemide resumed, plan to continue to hold lisinopril, pt will need to follow up with nephrology as outpt, at that time decide if pt should continue on ACEI Chronic afib : INR elevated , coumadin was held Patient on IV heparin now Restarted warfarin, monitor INR, INR subtherapeutic, 1.2, patient will remain on IV heparin Back pain with radiation to hip and knee : has chronic pain , worsening of symptoms in last few days , limiting his activity CT lumber spine w/o contrast degenerative disease, no significant central canal stenosis, would consider spine ortho eval if significant spinal stenosis pain control , PT/OT volume overload /worsening lower ext swelling : diuretics been kept on hold for acute renal failure need to D/w Nephrology about diuretics keep legs elevated Torsemide resumed Lower extremity edema much improved ordered for MELISSA montoya FULL CODE plan of care D/w with pt and all questions answered Admission and Anticipated Discharge Date Admission Date: February 04, 2020 Subjective Pt is sitting up in chair in [facility], currently has no complaints. Denies any fever, chills, chest pain, shortness of breath, abd. pain, nausea or vomiting. Seen by GI and surgery, no further work up as inpt. Follow up w/ surgery as outpt recommended. US guided IV access obtained for Abx treatment as outpt. Creatinine is stable, INR still subtherapeutic, remains on IV heparin. Review of Systems Review of Systems: All systems reviewed & are unremarkable except as noted in HPI & below Constitutional: no fever and no chills Respiratory: no cough and no dyspnea Cardiovascular: no chest pain and no palpitations Gastrointestinal: no abdominal pain, no nausea and no vomiting Physical Exam Physical Exam: Constitutional: Elderly male, sitting up in chair, in no acute distress, WD/WN, vitals as above Eyes: PERRL, EOMI, conjunctivae normal, anicteric sclerae ENMT: external ear and nose normal, oropharynx normal Neck: trachea midline, no thyromegaly Respiratory: normal respiratory effort, lungs clear to auscultation Cardiovascular: RRR, no murmur, no edema Gastrointestinal (Abdomen): normal bowel sounds, soft, nontender, nondistended Musculoskeletal: no cyanosis or clubbing, extremities motor strength 5/5, moves extremities spontaneously, trace LE edema Neurologic: PERRL, EOMI, no face palsy, no dysarthria, moves extremities spontaneously Psychiatric: A+Ox3, euthymic affect Results & Data Results & Data ([facility]) Vital Signs (Past 12 Hours) Vital Signs Temp Pulse Resp BP Pulse Ox 02/10/20 23:44 36.8 C 67 18 147/89 H 95 02/10/20 20:47 78 152/53 H Laboratory Results 02/11/20 02/11/20 02/11/20 Range/Units 11:36 07:54 05:53 PT (9.0-12.0) Seconds INR (0.9-1.1) APTT (21.0-31.0) Seconds PTT Ratio Creatinine 2.87 H (0.6-1.4) mg/dl Est Cr Clr Drug Dosing 31.9 ml/min Est GFR ( Amer) 25.3 Est GFR (Non-Af Amer) 21.8 POC Glucose 175 H 259 H (70-99) mg/dl 02/11/20 02/11/20 02/10/20 Range/Units 05:53 05:50 23:34 PT 13.0 H (9.0-12.0) Seconds INR 1.2 H (0.9-1.1) APTT 44.3 H (21.0-31.0) Seconds PTT Ratio 1.6 Creatinine (0.6-1.4) mg/dl Est Cr Clr Drug Dosing ml/min Est GFR ( Amer) Est GFR (Non-Af Amer) POC Glucose 137 H 193 H (70-99) mg/dl 02/10/20 02/10/20 Range/Units 20:22 16:44 PT (9.0-12.0) Seconds INR (0.9-1.1) APTT (21.0-31.0) Seconds PTT Ratio Creatinine (0.6-1.4) mg/dl Est Cr Clr Drug Dosing ml/min Est GFR ( Amer) Est GFR (Non-Af Amer) POC Glucose 134 H 162 H (70-99) mg/dl Medications Administered Current Inpatient Medications Acetaminophen (Acetaminophen 325 Mg Tab) 650 mg PO Q4H PRN PRN Reason: Pain or Fever Stop: 03/05/20 14:37 Albuterol (Albuterol Hfa 8 Gm Inhaler) 2 puffs INH Q4H PRN PRN Reason: Shortness Of Breath Or Wheezing Stop: 03/05/20 14:48 Albuterol (Albut/Ipratrop 3mg/0.5mg Neb 3 Ml Vial) 3 ml INH QID PRN PRN Reason: Shortness Of Breath Or Wheezing Stop: 03/05/20 14:37 Aspirin (Aspirin 81 Mg Ectab) 81 mg PO DAILY [facility] Stop: 03/05/20 14:59 Last Admin: 02/06/20 07:51 Dose: 81 mg Documented by: Dextrose (Dextrose 50% 50 Ml Syringe) 25 - 50 ml IV UD PRN; Protocol PRN Reason: Hypoglycemia Protocol Stop: 03/07/20 04:14 Fluticasone Propionate (Fluticasone Propionate Na Spr 16 Gm Btl) 2 sprays NA DAILY PRN PRN Reason: Nasal Congestion Stop: 03/05/20 14:37 Fluticasone/Vilanterol (Fluticasone/Vilanterol 200/25mcg 14 Puffs/Inhaler) 1 puffs INH DAILY [facility]; Protocol Stop: 03/06/20 08:59 Last Admin: 02/11/20 07:50 Dose: 1 puffs Documented by: Gabapentin (Gabapentin 100 Mg Cap) 100 mg PO TIDM [facility] Stop: 03/05/20 14:59 Last Admin: 02/11/20 07:49 Dose: 100 mg Documented by: Glucagon (Glucagon For Inj 1 Mg Vial) 1 mg SQ UD PRN; Protocol PRN Reason: Hypoglycemia Protocol Stop: 03/07/20 04:14 Glucose (Glucose 40% Gel 15 Gm Tube) 15 - 30 gm PO UD PRN; Protocol PRN Reason: Hypoglycemia Protocol Stop: 03/07/20 04:14 Glucose (Glucose 10 Tabs/Tube) 4 - 8 tabs PO UD PRN; Protocol PRN Reason: Hypoglycemia Protocol Stop: 03/07/20 04:14 Hydralazine HCl (Hydralazine Hcl 25 Mg Tab) 75 mg PO TID [facility] Stop: 03/05/20 14:59 Last Admin: 02/11/20 07:49 Dose: 75 mg Documented by: Heparin Sodium/Dextrose (Heparin Sodium/Dextrose) 25,000 units in 500 mls @ 24 mls/hr IV .[id number] [facility]; Protocol Stop: 03/09/20 08:29 Last Admin: 02/11/20 07:49 Dose: 1,200 units/hr, 24 mls/hr Documented by: Pantoprazole Sodium 40 mg/ (Dextrose) 100 mls @ 20 mls/hr IV Q5H [facility] Stop: 03/09/20 08:29 Last Infusion: 02/10/20 08:41 Dose: Infused Documented by: Cefepime HCl 2,000 mg/ Syringe 20 mls @ 5 mls/min IV Q12 [facility]; Protocol Stop: 02/22/20 20:59 Last Admin: 02/11/20 07:50 Dose: 5 mls/min Documented by: Insulin Aspart (Insulin Aspart 100 Units/Ml 3 Ml Pen) 0 units SC AC [facility]; Protocol Stop: 03/08/20 11:29 Last Admin: 02/10/20 17:28 Dose: 15 units Documented by: Insulin Aspart (Insulin Aspart 100 Units/Ml 3 Ml Pen) 0 units SC HS [facility]; Protocol Stop: 03/08/20 20:59 Last Admin: 02/10/20 20:39 Dose: Not Given Documented by: Insulin Glargine (Insulin Glargine Solostar 100 Units/Ml 3 Ml Pen) 18 units SQ DAILY [facility]; Protocol Stop: 03/11/20 12:29 Last Admin: 02/10/20 12:36 Dose: 18 units Documented by: Isosorbide Dinitrate (Isosorbide Dinitrate 10 Mg Tab) 30 mg PO TIDM [facility] Stop: 03/05/20 14:59 Last Admin: 02/11/20 07:49 Dose: 30 mg Documented by: Lactobacillus Acidophilus (Lactobacillus Acidophilus 1 Gm Pack) 1 gm PO TIDM [facility] Stop: 03/07/20 16:59 Last Admin: 02/11/20 07:09 Dose: Not Given Documented by: Metoprolol Succinate (Metoprolol Succ 50mg Ext Rel Tab) 100 mg PO DAILY [facility] Stop: 03/05/20 14:59 Last Admin: 02/11/20 07:50 Dose: 100 mg Documented by: Miscellaneous (Carbohydrates For Hypoglycemia ) 15 - 30 gm PO UD PRN PRN Reason: Hypoglycemia Treatment Stop: 03/07/20 04:14 Last Admin: 02/10/20 04:00 Dose: 15 gm Documented by: Miscellaneous Information (Pharmacy Glycemic Mgmt Consult) 1 ea N/A UD PRN PRN Reason: Consult Stop: 03/05/20 17:00 Miscellaneous Information (Cefepime Consult Active) 1 ea N/A UD PRN PRN Reason: Consult Stop: 03/09/20 13:36 Nitroglycerin (Nitroglycerin Sl 0.4 Mg/Tab Tab) 0.4 mg SL UD PRN PRN Reason: Chest Pain Stop: 03/05/20 14:37 Ondansetron HCl (Ondansetron Inj 2 Mg/Ml 2 Ml Vial) 4 mg IV Q6H PRN PRN Reason: Nausea Stop: 03/05/20 14:37 Oxycodone/Acetaminophen (Oxycodone/Acetaminophen 5mg/325mg Tab) 1 tab PO Q4H PRN PRN Reason: Pain Stop: 02/21/20 18:16 Pantoprazole Sodium (Pantoprazole 40 Mg Tab) 40 mg PO BID [facility] Stop: 03/11/20 08:59 Last Admin: 02/11/20 07:50 Dose: 40 mg Documented by: Polyethylene Glycol (Polyethylene (Miralax) 17 Gm Pack) 17 gm PO DAILY PRN PRN Reason: Constipation Stop: 03/05/20 14:37 Rosuvastatin Calcium (Rosuvastatin Calcium 20 Mg Tab) 40 mg PO HS [facility] Stop: 03/05/20 20:59 Last Admin: 02/10/20 20:42 Dose: 40 mg Documented by: Torsemide (Torsemide 10 Mg Tab) 10 mg PO QAM [facility] Stop: 03/10/20 13:29 Last Admin: 02/11/20 07:50 Dose: 10 mg Documented by: Vitamin D (Cholecalciferol 1,000 Units 25 Mcg Tab) 2,000 units PO DAILY [facility] Stop: 03/06/20 08:59 Last Admin: 02/11/20 07:50 Dose: 2,000 units Documented by: Warfarin Sodium (Warfarin Sod 10 Mg Tab) 10 mg PO [id number] [facility] Stop: 03/11/20 15:59 Warfarin Sodium (Warfarin Sod 7.5 Mg Tab) 7.5 mg PO [id number] [facility] Stop: 03/12/20 15:59 Warfarin Sodium (Warfarin Sod 10 Mg Tab) 10 mg PO ONE [facility] Stop: 03/12/20 09:59 (1) Pneumonia Laterality: right Lung location: lower lobe of lung Pneumonia type: due to unspecified organism Qualified Code(s): J18.9 - Pneumonia, unspecified organism
[2020-02-11] MEDS: ISOSORBIDE DINITRATE 10 MG TAB PO SCH ×3 (07:49→17:24)
[2020-02-11] MEDS: hydrALAZINE HCL 25 MG TAB PO SCH ×3 (07:49→20:47)
[2020-02-11] MEDS: GABAPENTIN 100 MG CAP PO SCH ×3 (07:49→17:24)
[2020-02-11] MEDS: PANTOprazole 40 MG TAB PO SCH ×2 (07:50→20:48)
[2020-02-11] MEDS: METOPROLOL SUCC 50MG EXT REL TAB PO SCH (07:50)
[2020-02-11] MEDS: CHOLECALCIFEROL 1,000 UNITS 25 MCG TAB PO SCH (07:50)
[2020-02-11] MEDS: TORSEMIDE 10 MG TAB PO SCH (07:50)
[2020-02-11] MEDS: FLUTICASONE/VILANTEROL 200/25MCG 14 PUFFS/INHALER INH SCH (07:50)
[2020-02-11] MEDS: CEFEPIME 2,000 MG in SYRINGE 0 ML IV SCH ×2 (07:50→20:44)
[2020-02-11] MEDS: INSULIN GLARGINE SOLOSTAR 100 UNITS/ML 3 ML PEN SQ SCH (08:33)
[2020-02-11] MEDS: INSULIN ASPART 100 UNITS/ML 3 ML PEN SC SCH ×4 (08:34→20:41)
[2020-02-11] MEDS ORDERED: WARFARIN SOD 10 MG TAB PO ONE (10:00)
[2020-02-11 15:16] LABS: Partial Thromboplastin Ratio 2.2
[2020-02-11 15:19] LABS: Partial Thromboplastin Time 60.6 Seconds (21.0-31.0)
[2020-02-11] MEDS ORDERED: WARFARIN SOD 7.5 MG TAB PO SCH (16:00)
--- NOTE | 2020-02-11 17:07 | Nephrology Progress Note ---
Date of Service February 11, 2020 Assessment & Plan (1) Acute renal failure (ARF): Creatinine peaked at 4 in the setting of sepsis, is now back to baseline. - restarted on his outpatient torsemide, Continue yesterday. - He will need a nephrology followup within the next week or 2 and further decision about lisinopril can be made at that time. (2) Bacteremia: As per primary -Completed the course of antibiotics Admission and Anticipated Discharge Date Admission Date: February 04, 2020 Subjective Resting comfortably , no complains Review of Systems Review of Systems: All systems reviewed & are unremarkable except as noted in HPI & below Physical Exam Physical Exam: HEENT: Mucous membranes moist. NECK: Supple. No jugular venous distention. CHEST: Bilateral clear to auscultation. CARDIOVASCULAR: S1, S2 regular. ABDOMEN: Soft, nontender. EXTREMITIES: Shows no edema. Results & Data ([facility]) Vital Signs (Past 12 Hours) Vital Signs Temp Pulse Pulse Resp BP BP Pulse Ox 02/11/20 16:00 36.9 C 72 20 150/98 H 98 02/11/20 07:00 37.1 C 76 20 163/97 H 95 Laboratory Results 02/10/20 05:47 02/11/20 05:53
[2020-02-11] MEDS: ROSUVASTATIN CALCIUM 20 MG TAB PO SCH (20:45)
[2020-02-12] MEDS: HEPARIN SODIUM/DEXTROSE 25,000 UNITS/500 ML BAG IV SCH ×2 (00:20→20:42)
[2020-02-12 06:30] LABS: INR 1.6 (0.9-1.1); Partial Thromboplastin Ratio 1.9; Prothrombin Time 16.3 Seconds (9.0-12.0)
[2020-02-12 06:44] LABS: Creatinine Clr Calc Pharmacy 31.5 ml/min; Est GFR (African American) 24.9; Est GFR (Non-African American) 21.5
[2020-02-12] MEDS: LACTOBACILLUS ACIDOPHILUS 1 GM PACK PO SCH ×3 (07:33→17:05)
--- NOTE | 2020-02-12 07:33 | Nephrology Progress Note ---
Date of Service February 12, 2020 Assessment & Plan (1) Acute renal failure (ARF): -Creatinine peaked at 4 in the setting of sepsis, is now back to baseline. - restarted on his outpatient torsemide, Continue - He will need a nephrology followup within the next week or 2 and further decision about lisinopril can be made at that time. (2) Bacteremia: As per primary -Completed the course of antibiotics Admission and Anticipated Discharge Date Admission Date: February 04, 2020 Subjective Resting comfortably , no complains Review of Systems Review of Systems: All systems reviewed & are unremarkable except as noted in HPI & below Physical Exam Physical Exam: HEENT: Mucous membranes moist. NECK: Supple. No jugular venous distention. CHEST: Bilateral clear to auscultation. CARDIOVASCULAR: S1, S2 regular. ABDOMEN: Soft, nontender. EXTREMITIES: Shows no edema. Results & Data ([facility]) Vital Signs (Past 12 Hours) Vital Signs Temp Pulse Pulse Resp BP Pulse Ox 02/11/20 23:08 36.8 C 72 20 136/79 96 02/11/20 20:49 91 H 133/94 Laboratory Results 02/10/20 05:47 02/12/20 05:29
[2020-02-12] MEDS: CEFEPIME 2,000 MG in SYRINGE 0 ML IV SCH ×2 (08:04→20:41)
[2020-02-12] MEDS: ISOSORBIDE DINITRATE 10 MG TAB PO SCH ×3 (08:04→17:06)
[2020-02-12] MEDS: hydrALAZINE HCL 25 MG TAB PO SCH ×3 (08:04→20:47)
[2020-02-12] MEDS: FLUTICASONE/VILANTEROL 200/25MCG 14 PUFFS/INHALER INH SCH (08:04)
[2020-02-12] MEDS: METOPROLOL SUCC 50MG EXT REL TAB PO SCH (08:04)
[2020-02-12] MEDS: GABAPENTIN 100 MG CAP PO SCH ×3 (08:04→17:07)
[2020-02-12] MEDS: TORSEMIDE 10 MG TAB PO SCH (08:04)
[2020-02-12] MEDS: CHOLECALCIFEROL 1,000 UNITS 25 MCG TAB PO SCH (08:04)
[2020-02-12] MEDS: PANTOprazole 40 MG TAB PO SCH ×2 (08:04→20:49)
[2020-02-12] MEDS: INSULIN GLARGINE SOLOSTAR 100 UNITS/ML 3 ML PEN SQ SCH (08:04)
[2020-02-12] MEDS: INSULIN ASPART 100 UNITS/ML 3 ML PEN SC SCH ×4 (08:09→20:44)
--- NOTE | 2020-02-12 10:38 | Hospitalist Progress Note ---
Date of Service February 12, 2020 Assessment & Plan (1) Pneumonia: Sepsis : Admitted with fever /chills/rigot /SOB /-met criteria for sepsis Xray chest shows patchy airspace opacity -possible pneumonia has been afebrile since admission , stable vitals with resolution of cough and sob was on Iv rocephin Enterobacter bacteremia : Blood culture : 1 bottle Enterobacter cloacae - not sure of the source appreciate input from ID [facility] abx changed to Iv Cefepime, plan of total of 14 days of antibiotics (May discharge on Cipro if QTC not prolonged, will obtain EKG) repeat blood cultures ordered - NGTD Pt has prolonged QTc on resting EKG, will plan for 14 days of cefepime, US guided IV access obtained (02/10/2020), end date February 22, 2020 plan of care updated to pt and Black tarry stool /concern for upper GI bleed : multiple episodes of melanotic stool -in setting of elevated INR no nausea /vomiting or abdominal pain INR was elevated > 4 coumadin and aspirin on hold given low dose vit K , INR 2.2 pt will need Iv heparin bridge when INR < 2 (hx of recent embolic CVA with subtheraputic INR /was off coumadin for GI procedure) follow H&H - been stable stool heme occult positive /C diff negative Currently patient has been having bowel movements that are not frequent and per pt completely normal, not black or tarry, denies any blood in the stool GI consult requested - given the patient's hemoglobin is stable, and no clear blood in stool noted, defer EGD at this time. Patient had EGD recently, just in November. Recommend MRCP however patient declines (claustrophobia). Right upper quadrant ultrasound ordered and surgery consult ordered for cholelithiasis. Recommend to follow up with gen. surgery as outpt. Type 2 DM : BSG improved appreciate input from pharmacy for glycemic management Acute renal failure on CKD STAGE 3 Now back to baseline baseline Cr 2.8-3 ; Cr elevated > 3-> 4 -> 3.3 -> 2.8 (back to baseline) held torsemide and ACEI initially Nephrology consulted - appreciate their input Now torsemide resumed, plan to continue to hold lisinopril, pt will need to follow up with nephrology as outpt within 1 to 2 weeks, at that time will decide if pt should continue on ACEI Chronic afib : INR elevated , coumadin was held Patient on IV heparin now Restarted warfarin, monitor INR, INR subtherapeutic, 1.2, patient will remain on IV heparin Currently INR 1.6, plan to likely discharge tomorrow, when INR is therapeutic Back pain with radiation to hip and knee : has chronic pain , worsening of symptoms in last few days , limiting his activity CT lumber spine w/o contrast degenerative disease, no significant central canal stenosis, would consider spine ortho eval if significant spinal stenosis pain control , PT/OT volume overload /worsening lower ext swelling : diuretics been kept on hold for acute renal failure keep legs elevated Torsemide now resumed Lower extremity edema much improved/resolved ordered for MELISSA montoya FULL CODE plan of care D/w with pt and all questions answered Admission and Anticipated Discharge Date Admission Date: February 04, 2020 Subjective INR 1.6 today, likely discharge tomorrow. Torsemide restarted by nephrology, hold lisinopril until seen by nephrology as outpatient. Ultrasound-guided IV access obtained, prescription for cefepime given to CM. Patient is currently sitting up in a chair, in no acute distress. Denies any fevers, chills, chest pain, shortness of breath, abdominal pain, nausea or vomiting. Reports he had a bowel movement yesterday, normal, no blood in the stool, no diarrhea or black tarry stool. Review of Systems Review of Systems: All systems reviewed & are unremarkable except as noted in HPI & below Constitutional: no fever and no chills Respiratory: no cough and no dyspnea Cardiovascular: no chest pain and no palpitations Gastrointestinal: no abdominal pain, no nausea and no vomiting Physical Exam Physical Exam: Constitutional: Elderly male, sitting up in chair, in no acute distress, WD/WN, vitals as above Eyes: PERRL, EOMI, conjunctivae normal, anicteric sclerae ENMT: external ear and nose normal, oropharynx normal Neck: trachea midline, no thyromegaly Respiratory: normal respiratory effort, lungs clear to auscultation Cardiovascular: RRR, no murmur, no edema Gastrointestinal (Abdomen): normal bowel sounds, soft, nontender, nondistended Musculoskeletal: no cyanosis or clubbing, extremities motor strength 5/5, moves extremities spontaneously, trace LE edema b/l Neurologic: PERRL, EOMI, no face palsy, no dysarthria, moves extremities spontaneously Psychiatric: A+Ox3, euthymic affect Results & Data Results & Data ([facility]) Vital Signs (Past 12 Hours) Vital Signs Temp Pulse Resp BP BP Pulse Ox 02/12/20 07:00 36.6 C 81 18 129/82 97 02/11/20 23:08 36.8 C 72 20 136/79 96 Laboratory Results 02/12/20 02/12/20 02/12/20 Range/Units 10:13 07:37 05:29 PT (9.0-12.0) Seconds INR (0.9-1.1) APTT (21.0-31.0) Seconds PTT Ratio Creatinine 2.91 H (0.6-1.4) mg/dl Est Cr Clr Drug Dosing 31.5 ml/min Est GFR ( Amer) 24.9 Est GFR (Non-Af Amer) 21.5 POC Glucose 143 H 112 H (70-99) mg/dl 02/12/20 02/11/20 02/11/20 Range/Units 05:29 20:39 16:46 PT 16.3 H (9.0-12.0) Seconds INR 1.6 H (0.9-1.1) APTT 54.0 H* (21.0-31.0) Seconds PTT Ratio 1.9 Creatinine (0.6-1.4) mg/dl Est Cr Clr Drug Dosing ml/min Est GFR ( Amer) Est GFR (Non-Af Amer) POC Glucose 82 182 H (70-99) mg/dl 02/11/20 02/11/20 Range/Units 14:47 11:36 PT (9.0-12.0) Seconds INR (0.9-1.1) APTT 60.6 H* (21.0-31.0) Seconds PTT Ratio 2.2 Creatinine (0.6-1.4) mg/dl Est Cr Clr Drug Dosing ml/min Est GFR ( Amer) Est GFR (Non-Af Amer) POC Glucose 175 H (70-99) mg/dl Medications Administered Current Inpatient Medications Acetaminophen (Acetaminophen 325 Mg Tab) 650 mg PO Q4H PRN PRN Reason: Pain or Fever Stop: 03/05/20 14:37 Albuterol (Albuterol Hfa 8 Gm Inhaler) 2 puffs INH Q4H PRN PRN Reason: Shortness Of Breath Or Wheezing Stop: 03/05/20 14:48 Albuterol (Albut/Ipratrop 3mg/0.5mg Neb 3 Ml Vial) 3 ml INH QID PRN PRN Reason: Shortness Of Breath Or Wheezing Stop: 03/05/20 14:37 Aspirin (Aspirin 81 Mg Ectab) 81 mg PO DAILY [facility] Stop: 03/05/20 14:59 Last Admin: 02/06/20 07:51 Dose: 81 mg Documented by: Dextrose (Dextrose 50% 50 Ml Syringe) 25 - 50 ml IV UD PRN; Protocol PRN Reason: Hypoglycemia Protocol Stop: 03/07/20 04:14 Fluticasone Propionate (Fluticasone Propionate Na Spr 16 Gm Btl) 2 sprays NA DAILY PRN PRN Reason: Nasal Congestion Stop: 03/05/20 14:37 Fluticasone/Vilanterol (Fluticasone/Vilanterol 200/25mcg 14 Puffs/Inhaler) 1 puffs INH DAILY [facility]; Protocol Stop: 03/06/20 08:59 Last Admin: 02/12/20 08:04 Dose: 1 puffs Documented by: Gabapentin (Gabapentin 100 Mg Cap) 100 mg PO TIDM [facility] Stop: 03/05/20 14:59 Last Admin: 02/12/20 08:04 Dose: 100 mg Documented by: Glucagon (Glucagon For Inj 1 Mg Vial) 1 mg SQ UD PRN; Protocol PRN Reason: Hypoglycemia Protocol Stop: 03/07/20 04:14 Glucose (Glucose 40% Gel 15 Gm Tube) 15 - 30 gm PO UD PRN; Protocol PRN Reason: Hypoglycemia Protocol Stop: 03/07/20 04:14 Glucose (Glucose 10 Tabs/Tube) 4 - 8 tabs PO UD PRN; Protocol PRN Reason: Hypoglycemia Protocol Stop: 03/07/20 04:14 Hydralazine HCl (Hydralazine Hcl 25 Mg Tab) 75 mg PO TID [facility] Stop: 03/05/20 14:59 Last Admin: 02/12/20 08:04 Dose: 75 mg Documented by: Heparin Sodium/Dextrose (Heparin Sodium/Dextrose) 25,000 units in 500 mls @ 24 mls/hr IV .[id number] [facility]; Protocol Stop: 03/09/20 08:29 Last Titration: 02/12/20 06:54 Dose: 1,200 units/hr, 24 mls/hr Documented by: Pantoprazole Sodium 40 mg/ (Dextrose) 100 mls @ 20 mls/hr IV Q5H [facility] Stop: 03/09/20 08:29 Last Infusion: 02/10/20 08:41 Dose: Infused Documented by: Cefepime HCl 2,000 mg/ Syringe 20 mls @ 5 mls/min IV Q12 [facility]; Protocol Stop: 02/22/20 20:59 Last Admin: 02/12/20 08:04 Dose: 5 mls/min Documented by: Insulin Aspart (Insulin Aspart 100 Units/Ml 3 Ml Pen) 0 units SC AC [facility]; Protocol Stop: 03/08/20 11:29 Last Admin: 02/12/20 08:09 Dose: 4 units Documented by: Insulin Aspart (Insulin Aspart 100 Units/Ml 3 Ml Pen) 0 units SC HS [facility]; Pr otocol Stop: 03/08/20 20:59 Last Admin: 02/11/20 20:41 Dose: Not Given Documented by: Insulin Glargine (Insulin Glargine Solostar 100 Units/Ml 3 Ml Pen) 18 units SQ DAILY [facility]; Protocol Stop: 03/11/20 12:29 Last Admin: 02/12/20 08:04 Dose: 18 units Documented by: Isosorbide Dinitrate (Isosorbide Dinitrate 10 Mg Tab) 30 mg PO TIDM [facility] Stop: 03/05/20 14:59 Last Admin: 02/12/20 08:04 Dose: 30 mg Documented by: Lactobacillus Acidophilus (Lactobacillus Acidophilus 1 Gm Pack) 1 gm PO TIDM [facility] Stop: 03/07/20 16:59 Last Admin: 02/12/20 07:33 Dose: Not Given Documented by: Metoprolol Succinate (Metoprolol Succ 50mg Ext Rel Tab) 100 mg PO DAILY [facility] Stop: 03/05/20 14:59 Last Admin: 02/12/20 08:04 Dose: 100 mg Documented by: Miscellaneous (Carbohydrates For Hypoglycemia ) 15 - 30 gm PO UD PRN PRN Reason: Hypoglycemia Treatment Stop: 03/07/20 04:14 Last Admin: 02/10/20 04:00 Dose: 15 gm Documented by: Miscellaneous Information (Pharmacy Glycemic Mgmt Consult) 1 ea N/A UD PRN PRN Reason: Consult Stop: 03/05/20 17:00 Miscellaneous Information (Cefepime Consult Active) 1 ea N/A UD PRN PRN Reason: Consult Stop: 03/09/20 13:36 Nitroglycerin (Nitroglycerin Sl 0.4 Mg/Tab Tab) 0.4 mg SL UD PRN PRN Reason: Chest Pain Stop: 03/05/20 14:37 Ondansetron HCl (Ondansetron Inj 2 Mg/Ml 2 Ml Vial) 4 mg IV Q6H PRN PRN Reason: Nausea Stop: 03/05/20 14:37 Oxycodone/Acetaminophen (Oxycodone/Acetaminophen 5mg/325mg Tab) 1 tab PO Q4H PRN PRN Reason: Pain Stop: 02/21/20 18:16 Pantoprazole Sodium (Pantoprazole 40 Mg Tab) 40 mg PO BID [facility] Stop: 03/11/20 08:59 Last Admin: 02/12/20 08:04 Dose: 40 mg Documented by: Polyethylene Glycol (Polyethylene (Miralax) 17 Gm Pack) 17 gm PO DAILY PRN PRN Reason: Constipation Stop: 03/05/20 14:37 Rosuvastatin Calcium (Rosuvastatin Calcium 20 Mg Tab) 40 mg PO HS [facility] Stop: 03/05/20 20:59 Last Admin: 02/11/20 20:45 Dose: 40 mg Documented by: Torsemide (Torsemide 10 Mg Tab) 10 mg PO QAM [facility] Stop: 03/10/20 13:29 Last Admin: 02/12/20 08:04 Dose: 10 mg Documented by: Vitamin D (Cholecalciferol 1,000 Units 25 Mcg Tab) 2,000 units PO DAILY [facility] Stop: 03/06/20 08:59 Last Admin: 02/12/20 08:04 Dose: 2,000 units Documented by: Warfarin Sodium (Warfarin Sod 10 Mg Tab) 10 mg PO [id number] [facility] Stop: 03/11/20 15:59 Warfarin Sodium (Warfarin Sod 7.5 Mg Tab) 7.5 mg PO [id number] [facility] Stop: 03/12/20 15:59 Warfarin Sodium (Warfarin Sod 4 Mg Tab) 8 mg PO ONE ONE Stop: 02/12/20 10:34 (1) Pneumonia Laterality: right Lung location: lower lobe of lung Pneumonia type: due to unspecified organism Qualified Code(s): J18.9 - Pneumonia, unspecified organism
[2020-02-12] MEDS ORDERED: WARFARIN SOD 4 MG TAB PO ONE (11:00)
[2020-02-12] MEDS: ROSUVASTATIN CALCIUM 20 MG TAB PO SCH (20:48)
[2020-02-13 06:10] LABS: Creatinine Clr Calc Pharmacy 29.4 ml/min; Est GFR (African American) 23.1
[2020-02-13 06:31] LABS: Partial Thromboplastin Ratio 1.9; Prothrombin Time 19.9 Seconds (9.0-12.0)
[2020-02-13 07:01] LABS: Partial Thromboplastin Time 53.7 Seconds (21.0-31.0)
[2020-02-13] MEDS ORDERED: HEPARIN INFUSION STOP ORDER ONE (08:00)
[2020-02-13] MEDS ORDERED: WARFARIN SOD 7.5 MG TAB PO ONE (08:00)
[2020-02-13] MEDS: METOPROLOL SUCC 50MG EXT REL TAB PO SCH (09:06)
[2020-02-13] MEDS: GABAPENTIN 100 MG CAP PO SCH ×3 (09:06→17:54)
[2020-02-13] MEDS: TORSEMIDE 10 MG TAB PO SCH (09:07)
[2020-02-13] MEDS: PANTOprazole 40 MG TAB PO SCH (09:07)
[2020-02-13] MEDS: CHOLECALCIFEROL 1,000 UNITS 25 MCG TAB PO SCH (09:07)
[2020-02-13] MEDS: hydrALAZINE HCL 25 MG TAB PO SCH ×2 (09:08→12:27)
[2020-02-13] MEDS: ISOSORBIDE DINITRATE 10 MG TAB PO SCH ×3 (09:08→17:53)
[2020-02-13] MEDS: FLUTICASONE/VILANTEROL 200/25MCG 14 PUFFS/INHALER INH SCH (09:09)
[2020-02-13] MEDS: LACTOBACILLUS ACIDOPHILUS 1 GM PACK PO SCH ×3 (09:10→17:53)
[2020-02-13] MEDS: CEFEPIME 2,000 MG in SYRINGE 0 ML IV SCH ×2 (09:11→18:01)
[2020-02-13] MEDS: INSULIN GLARGINE SOLOSTAR 100 UNITS/ML 3 ML PEN SQ SCH (09:16)
[2020-02-13] MEDS: INSULIN ASPART 100 UNITS/ML 3 ML PEN SC SCH ×3 (09:16→17:54)
--- NOTE | 2020-02-13 09:17 | Hospitalist Progress Note ---
Date of Service February 13, 2020 Assessment & Plan (1) Pneumonia: Sepsis : Admitted with fever /chills/rigot /SOB /-met criteria for sepsis Xray chest shows patchy airspace opacity -possible pneumonia has been afebrile since admission , stable vitals with resolution of cough and sob was on Iv rocephin Enterobacter bacteremia : Blood culture : 1 bottle Enterobacter cloacae - not sure of the source appreciate input from WYATT Bernarder abx changed to Iv Cefepime, plan of total of 14 days of antibiotics (May discharge on Cipro if QTC not prolonged, will obtain EKG) repeat blood cultures ordered - NGTD Pt has prolonged QTc on resting EKG, will plan for 14 days of cefepime, US guided IV access obtained (02/10/2020), end date February 22, 2020 plan of care updated to pt and Black tarry stool /concern for upper GI bleed : multiple episodes of melanotic stool -in setting of elevated INR no nausea /vomiting or abdominal pain INR was elevated > 4 coumadin and aspirin on hold given low dose vit K , INR 2.2 pt will need Iv heparin bridge when INR < 2 (hx of recent embolic CVA with subtheraputic INR /was off coumadin for GI procedure) follow H&H - been stable stool heme occult positive /C diff negative Currently patient has been having bowel movements that are not frequent and per pt completely normal, not black or tarry, denies any blood in the stool GI consult requested - given the patient's hemoglobin is stable, and no clear blood in stool noted, defer EGD at this time. Patient had EGD recently, just in November. Recommend MRCP however patient declines (claustrophobia). Right upper quadrant ultrasound ordered and surgery consult ordered for cholelithiasis. Recommend to follow up with gen. surgery as outpt. Type 2 DM : BSG improved appreciate input from pharmacy for glycemic management Acute renal failure on CKD STAGE 3 Now back to baseline baseline Cr 2.8-3 ; Cr elevated > 3-> 4 -> 3.3 -> 3 (back to baseline) held torsemide and ACEI initially Nephrology consulted - appreciate their input Now torsemide resumed, plan to continue to hold lisinopril, pt will need to follow up with nephrology as outpt within 1 to 2 weeks, at that time will decide if pt should continue on ACEI Chronic afib : INR elevated , coumadin was held Patient on IV heparin now Restarted warfarin, monitor INR, INR subtherapeutic, 1.2, patient will remain on IV heparin Currently INR 1.6, plan to likely discharge tomorrow, when INR is therapeutic Back pain with radiation to hip and knee : has chronic pain , worsening of symptoms in last few days , limiting his activity CT lumber spine w/o contrast degenerative disease, no significant central canal stenosis, would consider spine ortho eval if significant spinal stenosis pain control , PT/OT , currently no complaints volume overload /worsening lower ext swelling : diuretics been kept on hold for acute renal failure keep legs elevated Torsemide now resumed Lower extremity edema much improved/resolved ordered for MELISSA montoya FULL CODE plan of care D/w with pt and all questions answered Admission and Anticipated Discharge Date Admission Date: February 04, 2020 Subjective INR 2.0 today, plan to discharge today. Torsemide restarted by nephrology, hold lisinopril until seen by nephrology as outpatient. Ultrasound-guided IV access obtained, prescription for cefepime given to CM. Patient is currently sitting up in a chair, in no acute distress. Denies any fevers, chills, chest pain, shortness of breath, abdominal pain, nausea or vo miting. Reports he had a bowel movement yesterday, normal, no blood in the stool, no diarrhea or black tarry stool. Review of Systems Review of Systems: All systems reviewed & are unremarkable except as noted in HPI & below Constitutional: no fever and no chills Respiratory: no cough and no dyspnea Cardiovascular: no chest pain and no palpitations Gastrointestinal: no abdominal pain, no nausea and no vomiting Physical Exam Physical Exam: Constitutional: Elderly male, sitting up in chair, in no acute distress, WD/WN, vitals as above Eyes: PERRL, EOMI, conjunctivae normal, anicteric sclerae ENMT: external ear and nose normal, oropharynx normal Neck: trachea midline, no thyromegaly Respiratory: normal respiratory effort, lungs clear to auscultation Cardiovascular: RRR, no murmur, no edema Gastrointestinal (Abdomen): normal bowel sounds, soft, nontender, nondistended Musculoskeletal: no cyanosis or clubbing, extremities motor strength 5/5, moves extremities spontaneously, trace LE edema b/l Neurologic: PERRL, EOMI, no face palsy, no dysarthria, moves extremities spontaneously Psychiatric: A+Ox3, euthymic affect Results & Data Results & Data ([facility]) Vital Signs (Past 12 Hours) Vital Signs Temp Pulse Resp BP BP Pulse Ox 02/13/20 07:10 36.8 C 72 18 145/87 H 99 02/12/20 23:36 36.9 C 80 20 173/75 H 97 Laboratory Results 02/13/20 02/13/20 02/13/20 Range/Units 07:39 05:08 05:08 PT 19.9 H (9.0-12.0) Seconds INR 2.0 H (0.9-1.1) APTT 53.7 H* (21.0-31.0) Seconds PTT Ratio 1.9 Creatinine 3.09 H (0.6-1.4) mg/dl Est Cr Clr Drug Dosing 29.4 ml/min Est GFR ( Amer) 23.1 Est GFR (Non-Af Amer) 20.0 POC Glucose 141 H (70-99) mg/dl 02/12/20 02/12/20 02/12/20 Range/Units 20:34 16:44 12:01 PT (9.0-12.0) Seconds INR (0.9-1.1) APTT (21.0-31.0) Seconds PTT Ratio Creatinine (0.6-1.4) mg/dl Est Cr Clr Drug Dosing ml/min Est GFR ( Amer) Est GFR (Non-Af Amer) POC Glucose 181 H 168 H 140 H (70-99) mg/dl 02/12/20 Range/Units 10:13 PT (9.0-12.0) Seconds INR (0.9-1.1) APTT (21.0-31.0) Seconds PTT Ratio Creatinine (0.6-1.4) mg/dl Est Cr Clr Drug Dosing ml/min Est GFR ( Amer) Est GFR (Non-Af Amer) POC Glucose 143 H (70-99) mg/dl Medications Administered Current Inpatient Medications Acetaminophen (Acetaminophen 325 Mg Tab) 650 mg PO Q4H PRN PRN Reason: Pain or Fever Stop: 03/05/20 14:37 Albuterol (Albuterol Hfa 8 Gm Inhaler) 2 puffs INH Q4H PRN PRN Reason: Shortness Of Breath Or Wheezing Stop: 03/05/20 14:48 Albuterol (Albut/Ipratrop 3mg/0.5mg Neb 3 Ml Vial) 3 ml INH QID PRN PRN Reason: Shortness Of Breath Or Wheezing Stop: 03/05/20 14:37 Aspirin (Aspirin 81 Mg Ectab) 81 mg PO DAILY [facility]YSIA Stop: 03/05/20 14:59 Last Admin: 02/06/20 07:51 Dose: 81 mg Documented by: Dextrose (Dextrose 50% 50 Ml Syringe) 25 - 50 ml IV UD PRN; Protocol PRN Reason: Hypoglycemia Protocol Stop: 03/07/20 04:14 Fluticasone Propionate (Fluticasone Propionate Na Spr 16 Gm Btl) 2 sprays NA DAILY PRN PRN Reason: Nasal Congestion Stop: 03/05/20 14:37 Fluticasone/Vilanterol (Fluticasone/Vilanterol 200/25mcg 14 Puffs/Inhaler) 1 puffs INH DAILY ALYSIA; Protocol Stop: 03/06/20 08:59 Last Admin: 02/12/20 08:04 Dose: 1 puffs Documented by: Gabapentin (Gabapentin 100 Mg Cap) 100 mg PO TIDM [facility] Stop: 03/05/20 14:59 Last Admin: 02/12/20 17:07 Dose: 100 mg Documented by: Glucagon (Glucagon For Inj 1 Mg Vial) 1 mg SQ UD PRN; Protocol PRN Reason: Hypoglycemia Protocol Stop: 03/07/20 04:14 Glucose (Glucose 40% Gel 15 Gm Tube) 15 - 30 gm PO UD PRN; Protocol PRN Reason: Hypoglycemia Protocol Stop: 03/07/20 04:14 Glucose (Glucose 10 Tabs/Tube) 4 - 8 tabs PO UD PRN; Protocol PRN Reason: Hypoglycemia Protocol Stop: 03/07/20 04:14 Hydralazine HCl (Hydralazine Hcl 25 Mg Tab) 75 mg PO TID ALYSIA Stop: 03/05/20 14:59 Last Admin: 02/12/20 20:47 Dose: 75 mg Documented by: Pantoprazole Sodium 40 mg/ (Dextrose) 100 mls @ 20 mls/hr IV Q5H [facility] Stop: 03/09/20 08:29 Last Infusion: 02/10/20 08:41 Dose: Infused Documented by: Cefepime HCl 2,000 mg/ Syringe 20 mls @ 5 mls/min IV Q12 [facility]; Protocol Stop: 02/22/20 20:59 Last Admin: 02/12/20 20:41 Dose: 5 mls/min Documented by: Insulin Aspart (Insulin Aspart 100 Units/Ml 3 Ml Pen) 0 units SC AC [facility]; Protocol Stop: 03/08/20 11:29 Last Admin: 02/12/20 17:16 Dose: 11 units Documented by: Insulin Aspart (Insulin Aspart 100 Units/Ml 3 Ml Pen) 0 units SC HS [facility]; Protocol Stop: 03/08/20 20:59 Last Admin: 02/12/20 20:44 Dose: 3 units Documented by: Insulin Glargine (Insulin Glargine Solostar 100 Units/Ml 3 Ml Pen) 18 units SQ DAILY [facility]; Protocol Stop: 03/11/20 12:29 Last Admin: 02/12/20 08:04 Dose: 18 units Documented by: Isosorbide Dinitrate (Isosorbide Dinitrate 10 Mg Tab) 30 mg PO TIDM [facility] Stop: 03/05/20 14:59 Last Admin: 02/12/20 17:06 Dose: 30 mg Documented by: Lactobacillus Acidophilus (Lactobacillus Acidophilus 1 Gm Pack) 1 gm PO TIDM [facility] Stop: 03/07/20 16:59 Last Admin: 02/12/20 17:05 Dose: Not Given Documented by: Metoprolol Succinate (Metoprolol Succ 50mg Ext Rel Tab) 100 mg PO DAILY [facility] Stop: 03/05/20 14:59 Last Admin: 02/12/20 08:04 Dose: 100 mg Documented by: Miscellaneous (Carbohydrates For Hypoglycemia ) 15 - 30 gm PO UD PRN PRN Reason: Hypoglycemia Treatment Stop: 03/07/20 04:14 Last Admin: 02/10/20 04:00 Dose: 15 gm Documented by: Miscellaneous Information (Pharmacy Glycemic Mgmt Consult) 1 ea N/A UD PRN PRN Reason: Consult Stop: 03/05/20 17:00 Miscellaneous Information (Cefepime Consult Active) 1 ea N/A UD PRN PRN Reason: Consult Stop: 03/09/20 13:36 Nitroglycerin (Nitroglycerin Sl 0.4 Mg/Tab Tab) 0.4 mg SL UD PRN PRN Reason: Chest Pain Stop: 03/05/20 14:37 Ondansetron HCl (Ondansetron Inj 2 Mg/Ml 2 Ml Vial) 4 mg IV Q6H PRN PRN Reason: Nausea Stop: 03/05/20 14:37 Oxycodone/Acetaminophen (Oxycodone/Acetaminophen 5mg/325mg Tab) 1 tab PO Q4H PRN PRN Reason: Pain Stop: 02/21/20 18:16 Pantoprazole Sodium (Pantoprazole 40 Mg Tab) 40 mg PO BID [facility] Stop: 03/11/20 08:59 Last Admin: 02/12/20 20:49 Dose: 40 mg Documented by: Polyethylene Glycol (Polyethylene (Miralax) 17 Gm Pack) 17 gm PO DAILY PRN PRN Reason: Constipation Stop: 03/05/20 14:37 Rosuvastatin Calcium (Rosuvastatin Calcium 20 Mg Tab) 40 mg PO HS [facility] Stop: 03/05/20 20:59 Last Admin: 02/12/20 20:48 Dose: 40 mg Documented by: Torsemide (Torsemide 10 Mg Tab) 10 mg PO QAM [facility] Stop: 03/10/20 13:29 Last Admin: 02/12/20 08:04 Dose: 10 mg Documented by: Vitamin D (Cholecalciferol 1,000 Units 25 Mcg Tab) 2,000 units PO DAILY [facility] Stop: 03/06/20 08:59 Last Admin: 02/12/20 08:04 Dose: 2,000 units Documented by: Warfarin Sodium (Warfarin Sod 10 Mg Tab) 10 mg PO [id number] [facility] Stop: 03/11/20 15:59 Warfarin Sodium (Warfarin Sod 7.5 Mg Tab) 7.5 mg PO [id number] [facility] Stop: 03/12/20 15:59 (1) Pneumonia Laterality: right Lung location: lower lobe of lung Pneumonia type: due to unspecified organism Qualified Code(s): J18.9 - Pneumonia, unspecified organism
--- NOTE | 2020-02-13 10:13 | Nephrology Progress Note ---
Date of Service February 13, 2020 Assessment & Plan (1) Acute renal failure (ARF): -Creatinine peaked at 4 in the setting of sepsis; baseline about 2.8 or CKD 4. is now back near baseline - restarted on his outpatient torsemide, Continue >>>>>>pt has not had full chemistry x 3 days and resumed torsemide 4 days ago >> cannot add on to labs from this am so ordered redraw along with mag; no cbc since 02/09 > ordered one as well on heparin gtt with chronic thrombocytopenia - He will need a nephrology followup within the next week or 2 and further decision about lisinopril can be made at that time>> to see Dr Bosch or SUKHDEEP Bar in (preferably) [facility] but [facility] too -full BMP within a week (2) Bacteremia: As per primary -for d/c on cefepime through 02/21 Admission and Anticipated Discharge Date Admission Date: February 04, 2020 Subjective seen on AM rounds 0745 approx. eating breathing well. feels edema controlled; no severe dizziness/orthostatic sx. remains on heparin gtt; denies voiding concerns Review of Systems Review of Systems: All systems reviewed & are unremarkable except as noted in HPI & below Physical Exam Constitutional: well developed and well nourished; no acute distress up in chair on RA ate full brkfst Eyes: EOM intact bilaterally ENMT: Ears: no external ear abnormality Nose: no external nose abnormality Mouth: + dry oral mucous membranes Neck: no nuchal rigidity Respiratory: normal respiratory effort Auscultation: lungs clear to auscultation bilaterally and + diminished lung sounds Cardiovascular: Rate/Rhythm: regular rate and regular rhythm Heart Sounds: + murmur Extremities: + edema (1-2+ BL ANKLES) Gastrointestinal (Abdomen): Inspection/Auscultation: normal bowel sounds Percussion/Palpation: abdomen soft; abdomen nontender Musculoskeletal: Extremities: strength 5/5 throughout Skin: no rashes, warm and dry Neurologic: mathew, fluent speech, no tremor Psychiatric: A+Ox3, euthymic affect Genitourinary: no cuadra Results & Data ([place]) Vital Signs (Past 12 Hours) Vital Signs Temp Pulse Resp BP BP Pulse Ox 02/13/20 07:10 36.8 C 72 18 145/87 H 99 02/12/20 23:36 36.9 C 80 20 173/75 H 97 Laboratory Results 02/10/20 05:47 02/13/20 05:08
[2020-02-13 10:48] LABS: Hemoglobin 9.9 g/dL (14.0-18.0); Mean Corpuscular Hemoglobin 26.4 pg (25-34); Mean Corpuscular Hgb Conc 30.9 g/dL (32-36); Mean Corpuscular Volume 85.3 fL (80-100); Mean Platelet Volume 9.9 fL (7.4-10.4); Platelet Count 130 K/uL (130-400); RDW Coefficient of Variation 16.1 % (11.5-14.5); RDW Standard Deviation 50.5 fL (36.4-46.3); Red Blood Count 3.75 M/uL (4.7-6.1); White Blood Count 6.42 K/uL (4.8-10.8)
--- NOTE | 2020-02-13 10:55 | Discharge Summary ---
Date of Service February 13, 2020 Admission HPI Per Admitting Provider This is a 65-year-old male with past medical history significant for type 2 diabetes, hyperlipidemia, history of pancreatitis, history of COPD, history of sleep apnea and nocturnal hypoxia, uses CPAP with oxygen at nighttime, history of mild persistent asthma without complication, history of multiple pulmonary nodules, history of chronic sinusitis, chronic systolic and diastolic CHF, atrial fibrillation, history of moderate aortic stenosis, hypertension, pulmonary hypertension, peripheral vascular disease, obesity, gastroparesis, status post AICD, history of recent embolic left MCA, 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 He had an episode of vomiting. Denies any cough, denies any headache, no blurred vision, no earache, no runny nose, maybe mild sore throat. Denies any loss of sense of smell or taste. Denies any abdominal pain. Normal bowel and bladder movements. No burning micturitions. No hematuria or black stools. He says his swelling in the legs is stable, says his weight is stable. He is ambulating okay at home. His works in [employer], but think she recently was tested negative for COVID. Currently in the ER, where he came was tachypneic, spiking temperature, but after fluids and antibiotics he is feeling better . Currently he is hemodynamically stable and talking in full sentences. Admission Exam Per Admitting Provider GENERAL: The patient is of moderate build, patient obese, currently not in acute distress. VITAL SIGNS: Temperature 39.4, pulse 92, respiratory rate 20, blood pressure 120/80, oxygen 97% on 4 liters. HEENT: No pallor, no icterus. Pupils equal, round, reactive to light. Oral mucosa moist. NECK: No JVD, no neck masses. CARDIOVASCULAR: S1, S2 heard. Tachycardia. No murmurs. RESPIRATORY SYSTEM: Normal AP diameter. No accessory muscle use. No wheezing, no crackles. Bilateral diminished breath sounds. ABDOMEN: Soft, bowel sounds present, nontender. No distention. CENTRAL NERVOUS SYSTEM: Cranial nerves II-XII grossly intact. Nonfocal. EXTREMITIES: No edema, no erythema. Principal Diagnosis Sepsis Enterobacter bacteremia Cholelithiasis PAM on CKD Discharge Exam Constitutional: Elderly male, sitting up in chair, in no acute distress, WD/WN, vitals as above Eyes: PERRL, EOMI, conjunctivae normal, anicteric sclerae ENMT: external ear and nose normal, oropharynx normal Neck: trachea midline, no thyromegaly Respiratory: normal respiratory effort, lungs clear to auscultation Cardiovascular: RRR, no murmur, no edema Gastrointestinal (Abdomen): normal bowel sounds, soft, nontender, nondistended Musculoskeletal: no cyanosis or clubbing, extremities motor strength 5/5, moves extremities spontaneously, trace LE edema b/l Neurologic: PERRL, EOMI, no face palsy, no dysarthria, moves extremities spontaneously Psychiatric: A+Ox3, euthymic affect Discharge Data Allergies Allergy/AdvReac Type Severity Reaction Status Date / Time No Known Allergies Allergy Verified 02/04/20 05:06 Consultations 02/04/20 05:28 ED Decision to Admit Stat 02/04/20 14:38 Consult Case Management - Discharge Planning Routine 02/06/20 07:17 Consult Nephrology Routine 02/07/20 13:26 Consult Infectious Diseases Routine 02/07/20 14:53 Consult Gastroenterology Routine 02/08/20 08:48 Consult General Surgery Routine Ordered Studies 02/07/20 18:17 CT lumbar spine wo con Routine IMPRESSION: 1. No acute bony abnormality is seen involving the lumbar spine. 2. Degenerative disc disease as above. 3. There is no CT evidence of high-grade central canal stenosis. 02/08/20 14:00 US gallbladder Routine IMPRESSION: 1. Cholelithiasis without sonographic evidence of acute cholecystitis. 2. No intra or extrahepatic biliary ductal dilatation is identified. Hospital Course (1) Pneumonia: Sepsis : Admitted with fever /chills/rigot /SOB /-met criteria for sepsis Xray chest shows patchy airspace opacity -possible pneumonia has been afebrile since admission , stable vitals with resolution of cough and sob was on Iv rocephin Enterobacter bacteremia : Blood culture : 1 bottle Enterobacter cloacae - not sure of the source appreciate input from WYATT Delatorre abx changed to Iv Cefepime, plan of total of 14 days of antibiotics (May discharge on Cipro if QTC not prolonged, will obtain EKG) repeat blood cultures ordered - NGTD Pt has prolonged QTc on resting EKG, will plan for 14 days of cefepime, US guided IV access obtained (02/10/2020), end date February 22, 2020 plan of care updated to pt and Black tarry stool /concern for upper GI bleed : multiple episodes of melanotic stool -in setting of elevated INR no nausea /vomiting or abdominal pain INR was elevated > 4 coumadin and aspirin on hold given low dose vit K , INR 2.2 pt will need Iv heparin bridge when INR < 2 (hx of recent embolic CVA with subtheraputic INR /was off coumadin for GI procedure) follow H&H - been stable stool heme occult positive /C diff negative Currently patient has been having bowel movements that are not frequent and per pt completely normal, not black or tarry, denies any blood in the stool GI consult requested - given the patient's hemoglobin is stable, and no clear blood in stool noted, defer EGD at this time. Patient had EGD recently, just in November. Recommend MRCP however patient declines (claustrophobia). Right upper quadrant ultrasound ordered and surgery consult ordered for cholelithiasis. Recommend to follow up with gen. surgery as outpt. Type 2 DM : BSG improved appreciate input from pharmacy for glycemic management Patient has been using much less insulin while inpatient, than is his outpatient regimen. Therefore on discharge recommend to decrease his Lantus to 20 units twice daily, and monitor his blood sugar levels at home, further discuss with his PCP, appointment scheduled in the next 2 days Acute renal failure on CKD STAGE 3 Now back to baseline baseline Cr 2.8-3 ; Cr elevated > 3-> 4 -> 3.3 -> 3 (back to baseline) held torsemide and ACEI initially Nephrology consulted - appreciate their input Now torsemide resumed, plan to continue to hold lisinopril, pt will need to f ollow up with nephrology as outpt within 1 to 2 weeks, at that time will decide if pt should continue on ACEI Chronic afib : INR elevated , coumadin was held Patient on IV heparin now Restarted warfarin, monitor INR, INR subtherapeutic, 1.2, patient will remain on IV heparin Currently INR 2.0 plan to discharge home today Back pain with radiation to hip and knee : has chronic pain , worsening of symptoms in last few days , limiting his activity CT lumber spine w/o contrast degenerative disease, no significant central canal stenosis, would consider spine ortho eval if significant spinal stenosis pain control , PT/OT , currently no complaints volume overload /worsening lower ext swelling : diuretics been kept on hold for acute renal failure keep legs elevated Torsemide now resumed Lower extremity edema much improved/resolved ordered for MELISSA montoya FULL CODE plan of care D/w with pt and all questions answered Total Time Total Time Spent Total Time Spent (In Minutes): 40 Total Time Includes: Examination of the Patient, Discharge Planning, Medication Reconciliation and Communication With Other Providers Discharge Plan Discharge Items Patient Disposition: Home - Home Health Services Reason For Visit: FEVER,SOB Discharge Diagnosis: Sepsis Enterobacter bacteremia Cholelithiasis PAM on CKD Condition on Discharge: Fair Activity: Per Instructions section Non-emergency contact: Primary Care Provider and Direct Entry Midwife Call non-emergency contact if: you have any medication questions and your symptoms worsen Follow-up/Referrals: Kathleen Bosch MD, PhD [Physician] - 02/23/20 12:10 pm (Date & Time 02/23/2020 12:10 PM Provider Kathleen Bosch MD Department Nephrology [facility] ) Mirlande Melton MD [Primary Care Provider] - 02/15/20 1:00 pm ( Date & Time 02/15/2020 1:00 PM Provider Mirlande Pickett MD Department Internal Medicine [facility] ) Diet: Carb Consistent or DM2 and Heart Healthy Addtl Attending Provider Instructions: Follow-up with primary care doctor, appointment was scheduled for you for February 14. At that time you should have blood work, CBC, BMP checked. Results should be also shared with your dialysis technician. Continue antibiotic, as discussed, Cefepime twice a day, until February 21. You were using much less insulin in the hospital than your prescribed home dose. Therefore recommend that at home you use Lantus 20 units twice a day instead of 40 units twice a day. If your blood sugar is elevated at home, make your way up back to your home dose. Discuss this further with your primary care doctor at your appointment in next 2 days. Do not take lisinopril, continue taking torsemide. You will need to follow-up with nephrology within 1 to 2-week. INR is 2.0 today, February 12. Continue taking your warfarin as prescribed and have your INR checked with anticoagulation clinic. You can take probiotics, especially now while you are on antibiotic treatment, this can be obtained [id number]. It was also recommended that you follow-up with surgery, for possible gallbladder removal. Please make sure to bring this discharge paperwork with you to your next appointment with your primary care doctor for review. Pending Studies at Discharge: No Stand-Alone Forms: My [facility]?[employer]Kart, Smoking Cessation Medications and DC Order Prescriptions: New Floranex 100 million cell Granules In Packet 1 packet PO TIDM 10 Days Qty: 12 RF: 0 Continued isosorbide dinitrate 10 mg Tablet 30 mg PO TIDM RF: 0 metoprolol succinate [Toprol XL] 100 mg Tablet Extended Release 24 Hr 100 mg PO DAILY RF: 0 aspirin 81 mg Tablet,Delayed Release (Dr/Ec) 81 mg PO DAILY RF: 0 pantoprazole [Protonix] 40 mg Tablet,Delayed Release (Dr/Ec) 40 mg PO DAILY RF: 0 rosuvastatin [Crestor] 40 mg Tablet 40 mg PO HS RF: 0 cholecalciferol (vitamin D3) [Vitamin D3] 2,000 unit Capsule 2,000 unit PO DAILY RF: 0 hydralazine 25 mg Tablet 75 mg PO TID RF: 0 warfarin 10 mg Tablet 10 mg PO MoFr@1600 Qty: 30 RF: 0 warfarin 7.5 mg tablet 7.5 mg PO UD Qty: 30 RF: 0 torsemide 10 mg Tablet 10 mg PO DAILY 30 Days Qty: 30 RF: 3 gabapentin 100 mg Capsule 100 mg PO TIDM RF: 0 ipratropium-albuterol 0.5 mg-3 mg(2.5 mg base)/3 mL Solution For Nebulization 3 ml INHALATION QID PRN (Reason: Shortness Of Breath Or Wheezing) RF: 0 albuterol sulfate [ProAir HFA] 90 mcg/actuation Hfa Aerosol Inhaler 2 puff INHALATION Q4H PRN (Reason: Shortness Of Breath Or Wheezing) RF: 0 fluticasone propionate [Flonase Allergy Relief] 50 mcg/actuation [place],Suspension 2 spray INTRANASAL DAILY PRN (Reason: Nasal Congestion) RF: 0 insulin lispro [Humalog KwikPen Insulin] 100 unit/mL Insulin Pen See Rx Instructions .ROUTE .COMPLEX RF: 0 Vitron-C 65 mg iron- 125 mg Tablet,Delayed Release (Dr/Ec) 1 tab PO BID RF: 0 fluticasone propion-salmeterol [Wixela Inhub] 500-50 mcg/dose blister with device 1 inh inhalation BID RF: 0 Changed Lantus Solostar U-100 Insulin 100 unit/mL (3 mL) Insulin Pen 20 unit SUBCUT BID Qty: 0 RF: 0 Discontinued lisinopril 5 mg Tablet 10 mg PO DAILY Qty: 0 RF: 0 Discharge Orders: Discharge Order (Routine); Ordered 02/13/20 Ordered By: Angel Mane Admission Data Admit Date/Time: 02/04/20 06:45 Attending Provider: Angel Mane Admit Provider: Bell Kay Primary Care Provider: Mirlande Melton Other Providers: Yovanny Desai ; Kathleen Bosch ; Moses Ramos ; Sammie Meneses ; Marielena Bar ; Hermilo Miller ; Cesar Hawkins ; Christiano Mcguire ; John Mondragon ; Carmelo Middleton I. ; Gerard Wheatley II ; Elda Hawley ; Billy Naqvi ; Jessie Gastelum ; Leandra Bailon ; Wilbert Ayala ; Nancy Munoz ; Chris Mackey ; Nely Kent ; Apryl Stewart ; Javier Roper ; Gildardo Portillo ; Stefani Rutherford ; Mallory Mohan ; Ute Terry ; Waleska Gandara ; Jannet Gonzales ; Bell Kay ; Billy Arvizu Other Interventions: Discharge Summary Assessment (RN) Last Done: 02/13/20 11:15
[2020-02-13 10:57] LABS: BUN Creatinine Ratio 14.8 (10-20); Calcium 8.9 mg/dl (8.5-10.1); Creatinine Clr Calc Pharmacy 30.8 ml/min; Est GFR (African American) 24.5; Est GFR (Non-African American) 21.1
== END 2020-02-13 18:30 | disposition home health service (06) | DRG 871 ==
LOC: ED 04:43 → EDINP 06:45 → SUATTDRO 06:45 → 2S 14:05 → 2N 02-05 15:38

== ENCOUNTER 2020-04-23 22:27 | Observation (INO) ==
[2020-04-23] MEDS ORDERED: OPTIRAY 320 125ml IV ONE (22:44)
[2020-04-23 22:46] LABS: Basophils # (auto) 0.02 K/uL (0-0.2); Basophils % (auto) 0.3 %; Eosinophils # (auto) 0.14 K/uL (0-0.5); Hematocrit (blood only) 39.1 % (42-52); Hemoglobin 12.7 g/dL (14.0-18.0); Immature Granulocytes # (auto) 0.01 K/uL (0.00-0.02); Immature Granulocytes % (auto) 0.1 %; Lymphocytes # (auto) 0.73 K/uL (1.2-3.4); Lymphocytes % (auto) 10.5 %; Mean Corpuscular Hemoglobin 27.2 pg (25-34); Mean Corpuscular Hgb Conc 32.5 g/dL (32-36); Mean Corpuscular Volume 83.7 fL (80-100); Mean Platelet Volume 10.8 fL (7.4-10.4); Monocytes # (auto) 0.62 K/uL (0.11-0.59); Monocytes % (auto) 8.9 %; Neutrophils # (auto) 5.43 K/uL (1.4-6.5); Neutrophils % (auto) 78.2 %; Platelet Count 137 K/uL (130-400); RDW Coefficient of Variation 14.7 % (11.5-14.5); RDW Standard Deviation 44.5 fL (36.4-46.3); Red Blood Count 4.67 M/uL (4.7-6.1); White Blood Count 6.95 K/uL (4.8-10.8)
[2020-04-23 22:59] LABS: INR 3.1 (0.9-1.1); Partial Thromboplastin Ratio 1.5; Prothrombin Time 30.8 Seconds (9.0-12.0)
[2020-04-23 23:03] LABS: Alanine Aminotransferase 27 U/L (12-78); Albumin Level 3.6 gm/dl (3.4-5.0); Aspartate Aminotransferase 20 U/L (15-37); BUN Creatinine Ratio 16.3 (10-20); Blood Urea Nitrogen 42 mg/dl (7-18); Calcium 9.3 mg/dl (8.5-10.1); Carbon Dioxide 25 mmol/L (21-32); Chloride 105 mmol/L (98-107); Est GFR (African American) 29.2; Est GFR (Non-African American) 25.2; Glucose 221 mg/dl (70-99); Magnesium 2.2 mg/dl (1.8-2.4); Potassium 3.9 mmol/L (3.5-5.1); Sodium 138 mmol/L (136-145)
[2020-04-23 23:19] LABS: Albumin Globulin Ratio 0.9 (0.9-2); Alkaline Phosphatase 112 U/L (45-117); Bilirubin,Total 0.8 mg/dl (0.2-1); Total Protein 7.6 gm/dl (6.4-8.2); Troponin I 0.056 ng/ml (0-0.045)
--- NOTE | 2020-04-23 23:26 | Emergency Department Note ---
History of Present Illness General Chief complaint: Stroke Alert Stated complaint: STROKE SX Source: patient and EMS Mode of arrival: EMS History of Present Illness Provider complaint: Left arm and leg weakness Onset (ago): hour(s) Location: upper extremity, lower extremity and left Pain Consistency: + constant Maximum Pain Intensity: 7 Quality: + other (Weakness) Relieved By: + none Associated symptoms: + headaches (Now resolved) and + weakness; no chest pain, no cough, no fever/chills, no nausea/vomiting, no shortness of breath and no syncope This is a 65-year-old male with a prior history of stroke on Coumadin presenting with strokelike symptoms starting at approximately 7 PM today. The patient s tated that he developed difficulty with speech as well as left arm and leg weakness. He had some difficulty walking as well. No alleviating factors. His symptoms are constant. His blood pressure is elevated per EMS. He has been taking his Coumadin for his atrial fibrillation. He denies any recent fever or illness. He has had no chest pain, shortness of breath, cough or cold symptoms, abdominal pain, vomiting, diarrhea or urinary symptoms. He does state that he is a prior history of stroke and also takes a baby aspirin daily. Home Medications Medication Instructions Recorded Confirmed Type aspirin 81 mg PO QAM 02/05/18 04/23/20 History cholecalciferol (vitamin D3) 2,000 unit PO QAM 02/05/18 04/23/20 History [Vitamin D3] isosorbide dinitrate 20 mg PO TIDM 02/05/18 04/23/20 History metoprolol succinate [Toprol XL] 100 mg PO QAM 02/05/18 04/23/20 History pantoprazole [Protonix] 40 mg PO QAM 02/05/18 04/23/20 History rosuvastatin [Crestor] 40 mg PO HS 02/05/18 04/23/20 History gabapentin 100 mg PO TIDM 05/14/18 04/23/20 History albuterol sulfate [ProAir HFA] 2 puff INHALATION Q4H PRN 08/01/18 04/23/20 History fluticasone propionate [Flonase 2 spray INTRANASAL DAILY PRN 08/01/18 04/23/20 History Allergy Relief] ipratropium-albuterol 3 ml INHALATION QID PRN 08/01/18 04/23/20 History Vitron-C 1 tab PO BID 06/05/19 04/23/20 History insulin lispro [Humalog KwikPen See Rx Instructions .ROUTE .COMPLEX 06/05/19 04/23/20 History Insulin] hydralazine 75 mg PO TID 12/18/19 04/23/20 History warfarin 7.5 mg PO UD #30 tab 01/10/20 04/23/20 Rx fluticasone furoate-vilanterol 1 inh INHALATION QAM 03/02/20 04/23/20 History [Breo Ellipta] torsemide 10 mg PO QAM 03/02/20 04/23/20 History Lantus Solostar U-100 Insulin 70 unit SUBCUT DAILY 04/23/20 04/23/20 History lisinopril 5 mg PO DAILY 04/23/20 04/23/20 History warfarin 5 mg PO UD 04/23/20 04/23/20 History Allergies Allergy/AdvReac Type Severity Reaction Status Date / Time No Known Allergies Allergy Verified 04/23/20 23:02 Past Med/Surg History Medical History Aortic stenosis Severe aortic stenosis vs pseudo aortic stenosis due to low output per cardio note from 12/2019 ECHO Asthma Atrial fibrillation on chronic anticoagulation CAD (coronary artery disease) "nonobstructive" Chronic anemia Chronic kidney disease STAGE 4-F/U DR HERNANDEZ Chronic systolic (congestive) heart failure EF around 30-34% COPD (chronic obstructive pulmonary disease) Diabetic neuropathy DM type 2 (diabetes mellitus, type 2) Dyslipidemia GERD (gastroesophageal reflux disease) History of multiple pulmonary nodules Hypertension LBBB (left bundle branch block) Nocturnal hypoxia on 2L NC O2 HS Nonischemic cardiomyopathy S/p BIV AICD in place Pulmonary HTN PVD (peripheral vascular disease) Sleep apnea BIPAP-OXYGEN 2L/MIN HS Stroke 12/18/19-[facility] ADMISSION-RESIDUAL EFFECTS SPECCH DIFFICULTY-SHORT TERM MEMORY Thrombocytopenia F/U PCP Surgical History H/O cardiac catheterization Non nonobstructive CAD on 2016 cardiac cath H/O total adrenalectomy LEFT 25 YRS AGO History of colonoscopy History of esophagogastroduodenoscopy (EGD) Presence of combination internal cardiac defibrillator (ICD) and pacemaker Family History Sister Diabetes Brother Diabetes Other Hypertension Lung cancer Social History Smoking Status: Never smoker Tobacco Type: Smokeless Tobacco (Dip or Chew) Second Hand Exposure: Yes (PARENTS SMOKED); Hx Alcohol Use: No Hx Substance Use: No Preferred Language: Vietnamese Communication Ability: Effective Visual Impairment: Limited Salesperson Sheet Music Required: No Beliefs That Will Affect Care: None marital status: Current Living Situation: Spouse current occupational status: retired 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 and A total of 10 systems reviewed and were otherwise negative Physical Exam Vital Signs Vital Signs - 24 hr 04/23/20 22:41 04/23/20 23:01 04/23/20 23:19 Temperature 36.6 C Temperature Source Oral Pulse Rate 89 92 H Pulse Rate from SpO2 Sensor 90 Respiratory Rate 20 21 Respiratory Effort / Characteristics Non-Labored Spontaneous Respiratory Depth Normal Blood Pressure 188/111 H 174/118 H 175/117 H Blood Pressure Mean 136 128 124 Pulse Oximetry 96 96 Oxygen Delivery Method Room Air Sepsis New/Unexplained Change in Mental Status N/A Sepsis Action Taken by Nursing No Action Required 04/23/20 23:30 Temperature Temperature Source Pulse Rate 89 Pulse Rate from SpO2 Sensor 83 Respiratory Rate 19 Respiratory Effort / Characteristics Respiratory Depth Blood Pressure 168/117 H Blood Pressure Mean 146 Pulse Oximetry 94 Oxygen Delivery Method Sepsis New/Unexplained Change in Mental Status Sepsis Action Taken by Nursing Constitutional: Vital signs reviewed. Eyes: Pupils are equal round reactive to light. Conjunctiva are noninjected. ENT: Pharynx is clear without erythema or exudate. Mucous membranes are moist. Neck supple without meningeal signs. Respiratory: Clear to auscultation bilaterally. Breath sounds are equal bilaterally. Cardiovascular: Regular rate and rhythm. No rubs or gallops. GI: Soft, nondistended and nontender. Bowel sounds are present. Musculoskeletal: No peripheral edema. No lower extremity tenderness. Integumentary: No cyanosis. or jaundice. Neurologic: The patient is awake and alert. Cranial nerves II-XII are intact. Motor is 5 out of 5 all extremities with some slight weakness in the left upper and lower extremity compared to the right. Sensation is intact to light touch all extremities. Normal speech. No pronator drift. No limb ataxia. Psychiatric: Normal affect. Not anxious appearing. Course Administered Medications Discontinued Medications Ioversol (Optiray 320 125ml) 125 ml IV ONCE ONE Stop: 04/23/20 22:45 Last Admin: 04/23/20 22:44 Dose: 119 ml Documented by: [id number] Critical Care Time Critical Care Time: Yes Total Critical Care Time: 35 I have personally spent approximately 35 minutes of critical care time in the direct management of this patient. This includes bedside care, interpretation of diagnostic studies, and testing, discussion with consultants, patient, and family members, and other required patient management activities. These minutes are in excess of all separately billable procedures. Medical Decision Making Differential Diagnosis CVA, intracranial hemorrhage, supratherapeutic INR, TIA, metabolic derangement Medical Records Attestation: I reviewed the patient's medical records. I did perform a limited focused review of portions of the patient's old chart on the electronic medical record. The patient was admitted in November of last year for strokelike symptoms and had a left MCA cortical infarct. Home Medications Current Medication List: was personally reviewed by me Laboratory Data Result diagrams: 04/23/20 21:58 04/23/20 21:58 Lab Results 04/23/20 04/23/20 04/23/20 Range/Units 21:58 21:58 21:58 WBC 6.95 (4.8-10.8) K/uL RBC 4.67 L (4.7-6.1) M/uL Hgb 12.7 L (14.0-18.0) g/dL Hct 39.1 L (42-52) % MCV 83.7 (80-100) fL MCH 27.2 (25-34) pg MCHC 32.5 (32-36) g/dL RDW Std Deviation 44.5 (36.4-46.3) fL RDW Coeff of Joey 14.7 H (11.5-14.5) % Plt Count 137 (130-400) K/uL MPV 10.8 H (7.4-10.4) fL Immature Gran % (Auto) 0.1 % Neut % (Auto) 78.2 % Lymph % (Auto) 10.5 % Kidder % (Auto) 8.9 % Eos % (Auto) 2.0 % Baso % (Auto) 0.3 % Neut # (Auto) 5.43 (1.4-6.5) K/uL Lymph # (Auto) 0.73 L (1.2-3.4) K/uL Kidder # (Auto) 0.62 H (0.11-0.59) K/uL Eos # (Auto) 0.14 (0-0.5) K/uL Baso # (Auto) 0.02 (0-0.2) K/uL Immature Gran # (Auto) 0.01 (0.00-0.02) K/uL PT 30.8 H (9.0-12.0) Seconds POC INR (0.9-1.1) INR 3.1 H (0.9-1.1) APTT 43.0 H (21.0-31.0) Seconds PTT Ratio 1.5 Sodium 138 (136-145) mmol/L Potassium 3.9 (3.5-5.1) mmol/L Chloride 105 (98-107) mmol/L Carbon Dioxide 25 (21-32) mmol/L Anion Gap 8.0 (3-11) BUN 42 H (7-18) mg/dl Creatinine 2.55 H (0.6-1.4) mg/dl Est Cr Clr Drug Dosing Not Reportable Est GFR ( Amer) 29.2 Est GFR (Non-Af Amer) 25.2 BUN/Creatinine Ratio 16.3 (10-20) Glucose 221 H (70-99) mg/dl POC Glucose (70-99) mg/dl Calcium 9.3 (8.5-10.1) mg/dl Magnesium 2.2 (1.8-2.4) mg/dl Total Bilirubin 0.8 (0.2-1) mg/dl AST 20 (15-37) U/L ALT 27 (12-78) U/L Alkaline Phosphatase 112 (45-117) U/L Troponin I 0.056 H* (0-0.045) ng/ml Total Protein 7.6 (6.4-8.2) gm/dl Albumin 3.6 (3.4-5.0) gm/dl Globulin 4.0 (2.5-4.0) gm/dl Albumin/Globulin Ratio 0.9 (0.9-2) SARS-CoV-2 Ag (Rapid) (Negative) Blood Type Antibody Screen 04/23/20 04/23/20 04/23/20 Range/Units 22:27 22:41 22:43 WBC (4.8-10.8) K/uL RBC (4.7-6.1) M/uL Hgb (14.0-18.0) g/dL Hct (42-52) % MCV (80-100) fL MCH (25-34) pg MCHC (32-36) g/dL RDW Std Deviation (36.4-46.3) fL RDW Coeff of Joey (11.5-14.5) % Plt Count (130-400) K/uL MPV (7.4-10.4) fL Immature Gran % (Auto) % Neut % (Auto) % Lymph % (Auto) % Kidder % (Auto) % Eos % (Auto) % Baso % (Auto) % Neut # (Auto) (1.4-6.5) K/uL Lymph # (Auto) (1.2-3.4) K/uL Kidder # (Auto) (0.11-0.59) K/uL Eos # (Auto) (0-0.5) K/uL Baso # (Auto) (0-0.2) K/uL Immature Gran # (Auto) (0.00-0.02) K/uL PT (9.0-12.0) Seconds POC INR 3.4 H (0.9-1.1) INR (0.9-1.1) APTT (21.0-31.0) Seconds PTT Ratio Sodium (136-145) mmol/L Potassium (3.5-5.1) mmol/L Chloride (98-107) mmol/L Carbon Dioxide (21-32) mmol/L Anion Gap (3-11) BUN (7-18) mg/dl Creatinine (0.6-1.4) mg/dl Est Cr Clr Drug Dosing Est GFR ( Amer) Est GFR (Non-Af Amer) BUN/Creatinine Ratio (10-20) Glucose (70-99) mg/dl POC Glucose 226 H (70-99) mg/dl Calcium (8.5-10.1) mg/dl Magnesium (1.8-2.4) mg/dl Total Bilirubin (0.2-1) mg/dl AST (15-37) U/L ALT (12-78) U/L Alkaline Phosphatase (45-117) U/L Troponin I (0-0.045) ng/ml Total Protein (6.4-8.2) gm/dl Albumin (3.4-5.0) gm/dl Globulin (2.5-4.0) gm/dl Albumin/Globulin Ratio (0.9-2) SARS-CoV-2 Ag (Rapid) (Negative) Blood Type A Positive Antibody Screen NEGATIVE 04/23/20 Range/Units 23:23 WBC (4.8-10.8) K/uL RBC (4.7-6.1) M/uL Hgb (14.0-18.0) g/dL Hct (42-52) % MCV (80-100) fL MCH (25-34) pg MCHC (32-36) g/dL RDW Std Deviation (36.4-46.3) fL RDW Coeff of Joey (11.5-14.5) % Plt Count (130-400) K/uL MPV (7.4-10.4) fL Immature Gran % (Auto) % Neut % (Auto) % Lymph % (Auto) % Kidder % (Auto) % Eos % (Auto) % Baso % (Auto) % Neut # (Auto) (1.4-6.5) K/uL Lymph # (Auto) (1.2-3.4) K/uL Kidder # (Auto) (0.11-0.59) K/uL Eos # (Auto) (0-0.5) K/uL Baso # (Auto) (0-0.2) K/uL Immature Gran # (Auto) (0.00-0.02) K/uL PT (9.0-12.0) Seconds POC INR (0.9-1.1) INR (0.9-1.1) APTT (21.0-31.0) Seconds PTT Ratio Sodium (136-145) mmol/L Potassium (3.5-5.1) mmol/L Chloride (98-107) mmol/L Carbon Dioxide (21-32) mmol/L Anion Gap (3-11) BUN (7-18) mg/dl Creatinine (0.6-1.4) mg/dl Est Cr Clr Drug Dosing Est GFR ( Amer) Est GFR (Non-Af Amer) BUN/Creatinine Ratio (10-20) Glucose (70-99) mg/dl POC Glucose (70-99) mg/dl Calcium (8.5-10.1) mg/dl Magnesium (1.8-2.4) mg/dl Total Bilirubin (0.2-1) mg/dl AST (15-37) U/L ALT (12-78) U/L Alkaline Phosphatase (45-117) U/L Troponin I (0-0.045) ng/ml Total Protein (6.4-8.2) gm/dl Albumin (3.4-5.0) gm/dl Globulin (2.5-4.0) gm/dl Albumin/Globulin Ratio (0.9-2) SARS-CoV-2 Ag (Rapid) Negative (Negative) Blood Type Antibody Screen Imaging Data Radiologist's Impression: Preliminary Findings Only See Final Report For Complete Findings CT HEAD: Impression: No intracranial hemorrhage or evidence of large territorial infarction. No mass lesion, mass effect, or hydrocephalus. Mild parenchymal volume loss and extensive chronic microvascular ischemic changes and chronic appearing left frontal operculum and right basal nuclei infarctions. Evaluation with MRI may be helpful. Radiologist: Joey Bell MD Study ready at 22:45 and initial results transmitted at 22:55 Communications: Clear Time Type Notes 04/23/20 23:07 Call Doctor Regarding Stroke, called Dr. St on 04/23 23:07 (-05:00) Preliminary Findings Only See Final Report For Complete Findings CTA HEAD: Impression: No large vessel occlusion, aneurysm, or hemodynamically significant stenosis. origin of the right posterior cerebral artery. Left vertebral artery is dominant. Radiologist: Joey Bell MD Study ready at 22:45 and initial results transmitted at 22:56 Communications: Clear Time Type Notes 04/23/20 23:07 Call Doctor Regarding Stroke, called Dr. St on 04/23 23:07 (-05:00) Preliminary Findings Only See Final Report For Complete Findings CTA NECK: Impression: Atherosclerosis of the carotid bifurcations without hemodynamically significant stenosis. There is no hemodynamically significant stenosis of the carotid or vertebral arteries. Tortuous course of the distal cervical internal carotid arteries. Degenerative changes seen throughout the cervical spine without high-grade spinal canal stenosis. Wall thickening of the esophagus. Recommend correlation for esophagitis. Radiologist: Joey Bell MD Study ready at 22:45 and initial results transmitted at 23:01 Communications: Clear Time Type Notes 04/23/20 23:06 Call Doctor Regarding Stroke, called Dr. St on 04/23 23:07 (-05:00) ECG Data Attestation: I personally reviewed and interpreted this ECG as follows: Indication: + other (Stroke symptoms) Rate (beats per minute): 81 Rhythm: + other (Ventricularly paced rhythm) ECG ST segments: + T-wave inversions ECG Findings: + PVCs and + Other (Widened QRS) MDM Narrative I did provide prehospital medical command for the patient. Last known well was 7 PM. I did call a stroke alert. I did order a stat CT of the head and CTA of the head and neck. I did review the images myself as well as the radiology report as described above. There is no evidence of acute infarct or stenosis. I did evaluate the patient as noted above. POC INR is 3.4. I did discuss the case with the stroke neurologist from [facility]. He agreed that no TPA was indicated at this time. I did place an order for continuous cardiac monitoring. The monitor showed a paced rhythm at a rate of 88 bpm. I did order and personally review the patient's 12-lead EKG as described above. He has a paced rhythm. I did order and review the patient's blood work as noted in the electronic medical record. Hemoglobin is 12.7. INR is 3.1. Creatinine is 2.55. Troponin is slightly elevated at 0.056. He denies having any chest discomfort or shortness of breath. Looking at past records he generally has an elevated troponin. I did discuss the test results with the patient. I did recommend hospitalization for further care and evaluation. His blood pressure is still slightly elevated. I did discuss this with the neurologist earlier and we agreed that permissive hypertension was indicated given his prior history of ischemic stroke. I did discuss the case with the hospitalist and registered nurse hh case manager. COVID-19 testing is negative. Impression & Plan Acute cerebrovascular accident, Chronic kidney disease, Elevated troponin, Supratherapeutic INR, Acute hyperglycemia Discharge Plan Visit Data Chief Complaint: Stroke Alert Stated Complaint: STROKE SX ED Provider: Nirav St Discharge Problem: Acute cerebrovascular accident, Chronic kidney disease, Elevated troponin, Supratherapeutic INR, Acute hyperglycemia Patient Disposition: Being Evaluated by Hospitalist Forms Stand Alone Forms: [facility] Prescriptions Prescriptions: No Action isosorbide dinitrate 10 mg Tablet 20 mg PO TIDM RF: 0 metoprolol succinate [Toprol XL] 100 mg Tablet Extended Release 24 Hr 100 mg PO QAM RF: 0 aspirin 81 mg Tablet,Delayed Release (Dr/Ec) 81 mg PO QAM RF: 0 pantoprazole [Protonix] 40 mg Tablet,Delayed Release (Dr/Ec) 40 mg PO QAM RF: 0 rosuvastatin [Crestor] 40 mg Tablet 40 mg PO HS RF: 0 cholecalciferol (vitamin D3) [Vitamin D3] 2,000 unit Capsule 2,000 unit PO QAM RF: 0 hydralazine 25 mg Tablet 75 mg PO TID RF: 0 warfarin 7.5 mg tablet 7.5 mg PO UD Qty: 30 RF: 0 Breo Ellipta 100-25 mcg/dose Blister With Device 1 inh INHALATION QAM RF: 0 torsemide 10 mg tablet 10 mg PO QAM RF: 0 gabapentin 100 mg Capsule 100 mg PO TIDM RF: 0 ipratropium-albuterol 0.5 mg-3 mg(2.5 mg base)/3 mL Solution For Nebulization 3 ml INHALATION QID PRN (Reason: Shortness Of Breath Or Wheezing) RF: 0 albuterol sulfate [ProAir HFA] 90 mcg/actuation Hfa Aerosol Inhaler 2 puff INHALATION Q4H PRN (Reason: Shortness Of Breath Or Wheezing) RF: 0 fluticasone propionate [Flonase Allergy Relief] 50 mcg/actuation [place],Suspension 2 spray INTRANASAL DAILY PRN (Reason: Nasal Congestion) RF: 0 insulin lispro [Humalog KwikPen Insulin] 100 unit/mL Insulin Pen See Rx Instructions .ROUTE .COMPLEX RF: 0 Vitron-C 65 mg iron- 125 mg Tablet,Delayed Release (Dr/Ec) 1 tab PO BID RF: 0 Lantus Solostar U-100 Insulin 100 unit/mL (3 mL) insulin pen 70 unit SUBCUT DAILY RF: 0 lisinopril 5 mg tablet 5 mg PO DAILY RF: 0 warfarin 5 mg tablet 5 mg PO UD RF: 0 Referrals Referrals: Mirlande Melton MD [Primary Care Provider] - Discharge Problem: Chronic kidney disease Qualifiers: Chronic kidney disease stage: unspecified stage Qualified Code(s): N18.9 - Chronic kidney disease, unspecified
[2020-04-24] MEDS ORDERED: hydrALAZINE HCL 25 MG TAB PO STA (00:47)
[2020-04-24 02:31] LABS: Troponin I 0.057 ng/ml (0-0.045)
[2020-04-24] MEDS ORDERED: METOPROLOL SUCC 50MG EXT REL TAB PO STA (03:16)
--- NOTE | 2020-04-24 03:16 | History & Physical Report ---
Date of Service April 24, 2020 Assessment & Plan (1) Hypertensive crisis: Possible TIA History CVA as per records hx chronic systolic HF (EF 35-39%, TTE 2019) status post ICD Patient euvolemic to dry A. fib on Coumadin, paced rhythm, INR therapeutic chronic LBBB History nonocclusive CAD/PVD as per records hx COPD/ARPIT/pulmonary hypertension as per records; lung status at baseline CRI, creatinine at baseline chronic anemia secondary to CKD, hemoglobin better than baseline Chronic thrombocytopenia DM 2 insulin requiring suboptimal control as of recent outpatient hemoglobin A1c of December 2019 Abdominal discomfort rule out UTI OBS PCU Neurochecks Permissive hypertension until stroke ruled out Continue aspirin and Coumadin medications for stroke prevention Repeat CT head after 24 hours (MRI precluded by PPM) Neurology consult Re: TIA, additional stroke work-up as per Neurology Obtain UA Basal insulin, ISS BG goal 140-180, carb count coverage DVT prophylaxis. Coumadin INR between 2 and 3 Full code Will relay to AM provider. History of Present Illness Chief Complaint: Trouble getting words out, left-sided weakness Primary Care Provider: Mirlande Pickett MD History obtained from patient and records. Medical history significant for chronic systolic heart failure secondary to nonischemic cardiomyopathy (EF of 35-39%, TTE 2019) status post ICD, chronic LBBB, hx nonocclusive CAD, PVD as per records, hx CVA, A. fib on Coumadin, hx severe aortic stenosis, hypertension, COPD as per records, ARPIT, DM 2 insulin requiring, chronic renal insufficiency (baseline creatinine of 2.6-3), chronic anemia (baseline hemoglobin of 11-12), chronic thrombocytopenia, past tobacco abuse Last confinement January 2024 sepsis secondary to Enterobacter bacteremia. Around 7 PM last night patient had sudden onset difficulty with speech associated with left arm and left leg weakness. Some trouble with walking. BP elevated upon arrival of EMS. Patient compliant with home medications. Patient denies chest pain, S OB, headache symptoms. Achy abdominal discomfort without change in bowel habits or dysuria. Strokelike symptoms resolved upon arrival at the ER. 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 Allergies Allergy/AdvReac Type Severity Reaction Status Date / Time No Known Allergies Allergy Verified 04/23/20 23:02 Home Medications Medication Instructions Recorded Confirmed Type aspirin 81 mg PO QAM 02/05/18 04/23/20 History cholecalciferol (vitamin D3) 2,000 unit PO QAM 02/05/18 04/23/20 History [Vitamin D3] isosorbide dinitrate 20 mg PO TIDM 02/05/18 04/23/20 History metoprolol succinate [Toprol XL] 100 mg PO QAM 02/05/18 04/23/20 History pantoprazole [Protonix] 40 mg PO QAM 02/05/18 04/23/20 History rosuvastatin [Crestor] 40 mg PO HS 02/05/18 04/23/20 History gabapentin 100 mg PO TIDM 05/14/18 04/23/20 History albuterol sulfate [ProAir HFA] 2 puff INHALATION Q4H PRN 08/01/18 04/23/20 History fluticasone propionate [Flonase 2 spray INTRANASAL DAILY PRN 08/01/18 04/23/20 History Allergy Relief] ipratropium-albuterol 3 ml INHALATION QID PRN 08/01/18 04/23/20 History Vitron-C 1 tab PO BID 06/05/19 04/23/20 History insulin lispro [Humalog KwikPen See Rx Instructions .ROUTE .COMPLEX 06/05/19 04/23/20 History Insulin] hydralazine 75 mg PO TID 12/18/19 04/23/20 History warfarin 7.5 mg PO UD #30 tab 01/10/20 04/23/20 Rx fluticasone furoate-vilanterol 1 inh INHALATION QAM 03/02/20 04/23/20 History [Breo Ellipta] torsemide 10 mg PO QAM 03/02/20 04/23/20 History Lantus Solostar U-100 Insulin 70 unit SUBCUT DAILY 04/23/20 04/23/20 History lisinopril 5 mg PO DAILY 04/23/20 04/23/20 History warfarin 5 mg PO UD 04/23/20 04/23/20 History Past Med/Surg History Medical History Aortic stenosis Severe aortic stenosis vs pseudo aortic stenosis due to low output per cardio note from 12/2019 ECHO Asthma Atrial fibrillation on chronic anticoagulation CAD (coronary artery disease) "nonobstructive" Chronic anemia Chronic kidney disease STAGE 4-F/U DR HERNANDEZ Chronic systolic (congestive) heart failure EF around 30-34% COPD (chronic obstructive pulmonary disease) Diabetic neuropathy DM type 2 (diabetes mellitus, type 2) Dyslipidemia GERD (gastroesophageal reflux disease) History of multiple pulmonary nodules Hypertension LBBB (left bundle branch block) Nocturnal hypoxia on 2L NC O2 HS Nonischemic cardiomyopathy S/p BIV AICD in place Pulmonary HTN PVD (peripheral vascular disease) Sleep apnea BIPAP-OXYGEN 2L/MIN HS Stroke 12/18/19-[facility] ADMISSION-RESIDUAL EFFECTS SPECCH DIFFICULTY-SHORT TERM MEMORY Thrombocytopenia F/U PCP Surgical History H/O cardiac catheterization Non nonobstructive CAD on 2016 cardiac cath H/O total adrenalectomy LEFT 25 YRS AGO History of colonoscopy History of esophagogastroduodenoscopy (EGD) Presence of combination internal cardiac defibrillator (ICD) and pacemaker Family History Sister Diabetes Brother Diabetes Other Hypertension Lung cancer Social History Smoking Status: Never smoker Tobacco Type: Smokeless Tobacco (Dip or Chew) Second Hand Exposure: No; Do You Dip or Chew Tobacco: Yes; Tobacco Cessation Education Requested by Patient: No Hx Alcohol Use: No Hx Substance Use: No Preferred Language: [place] Communication Ability: Effective Visual Impairment: Limited Director [employer] Required: No Beliefs That Will Affect Care: None marital status: Current Living Situation: Spouse current occupational status: retired 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 Other Information That Helps Us Care for You: No Feels Safe at Home: Yes Safety Concerns: Feels Safe At This Time Assistive Devices: CPAP and Oxygen - Continuous Review of Systems Review of Systems: As per HPI, all 10 systems reviewed, all other ROS negative Physical Exam Physical Exam: GENERAL: Comfortable, pleasant, obese, no respiratory distress SKIN: Pallor , warm HEENT: Alopecia, pale palpebral conjunctivae, no ptosis, dry buccal mucosa NECK : Supple, short neck, no tenderness CHEST : CTA, no tenderness HEART : RRR, systolic murmur ABDOMEN: Some distention, nontender EXTREMITIES : Minimal LE swelling, no LE tenderness, no other conspicuous deformities noted NEUROLOGIC : Coherent, no facial asymmetry, no other gross focality Results & Data Results & Data ([facility]) Vital Signs (Past 12 Hours) Vital Signs Temp Pulse Pulse Resp BP BP Pulse Ox 04/24/20 02:53 104 H 20 182/117 H 100 04/24/20 02:31 86 182/117 H 96 04/24/20 02:01 89 17 229/115 H 92 04/24/20 01:30 89 18 174/125 H 93 04/24/20 01:09 79 19 182/123 H 95 04/24/20 01:00 82 17 196/135 H 96 04/24/20 00:44 84 20 182/120 H 96 04/24/20 00:31 22 190/127 H 99 04/24/20 00:00 19 167/122 H 97 04/23/20 23:30 89 19 168/117 H 94 04/23/20 23:19 92 H 21 175/117 H 96 04/23/20 23:01 174/118 H 04/23/20 22:41 36.6 C 89 20 188/111 H 96 Laboratory Results Laboratory Results WBC 6.95 K/uL (4.8-10.8) 04/23/20 21:58 RBC 4.67 M/uL (4.7-6.1) L 04/23/20 21:58 Hgb 12.7 g/dL (14.0-18.0) L 04/23/20 21:58 Hct 39.1 % (42-52) L 04/23/20 21:58 MCV 83.7 fL (80-100) 04/23/20 21:58 MCH 27.2 pg (25-34) 04/23/20 21:58 MCHC 32.5 g/dL (32-36) 04/23/20 21:58 RDW Std Deviation 44.5 fL (36.4-46.3) 04/23/20 21:58 RDW Coeff of Joey 14.7 % (11.5-14.5) H 04/23/20 21:58 Plt Count 137 K/uL (130-400) 04/23/20 21:58 MPV 10.8 fL (7.4-10.4) H 04/23/20 21:58 Immature Gran % (Auto) 0.1 % 04/23/20 21:58 Neut % (Auto) 78.2 % 04/23/20 21:58 Lymph % (Auto) 10.5 % 04/23/20 21:58 [place] % (Auto) 8.9 % 04/23/20 21:58 Eos % (Auto) 2.0 % 04/23/20 21:58 Baso % (Auto) 0.3 % 04/23/20 21:58 Neut # (Auto) 5.43 K/uL (1.4-6.5) 04/23/20 21:58 Lymph # (Auto) 0.73 K/uL (1.2-3.4) L 04/23/20 21:58 [place] # (Auto) 0.62 K/uL (0.11-0.59) H 04/23/20 21:58 Eos # (Auto) 0.14 K/uL (0-0.5) 04/23/20 21:58 Baso # (Auto) 0.02 K/uL (0-0.2) 04/23/20 21:58 Immature Gran # (Auto) 0.01 K/uL (0.00-0.02) 04/23/20 21:58 PT 30.8 Seconds (9.0-12.0) H 04/23/20 21:58 POC INR 3.4 (0.9-1.1) H 04/23/20 22:43 INR 3.1 (0.9-1.1) H 04/23/20 21:58 APTT 43.0 Seconds (21.0-31.0) H 04/23/20 21:58 PTT Ratio 1.5 04/23/20 21:58 Sodium 138 mmol/L (136-145) 04/23/20 21:58 Potassium 3.9 mmol/L (3.5-5.1) 04/23/20 21:58 Chloride 105 mmol/L (98-107) 04/23/20 21:58 Carbon Dioxide 25 mmol/L (21-32) 04/23/20 21:58 Anion Gap 8.0 (3-11) 04/23/20 21:58 BUN 42 mg/dl (7-18) H 04/23/20 21:58 Creatinine 2.55 mg/dl (0.6-1.4) H 04/23/20 21:58 Est Cr Clr Drug Dosing Not Reportable 04/23/20 21:58 Est GFR ( Amer) 29.2 04/23/20 21:58 Est GFR (Non-Af Amer) 25.2 04/23/20 21:58 BUN/Creatinine Ratio 16.3 (10-20) 04/23/20 21:58 Glucose 221 mg/dl (70-99) H 04/23/20 21:58 POC Glucose 226 mg/dl (70-99) H 04/23/20 22:41 Calcium 9.3 mg/dl (8.5-10.1) 04/23/20 21:58 Magnesium 2.2 mg/dl (1.8-2.4) 04/23/20 21:58 Total Bilirubin 0.8 mg/dl (0.2-1) 04/23/20 21:58 AST 20 U/L (15-37) 04/23/20 21:58 ALT 27 U/L (12-78) 04/23/20 21:58 Alkaline Phosphatase 112 U/L (45-117) 04/23/20 21:58 Troponin I 0.057 ng/ml (0-0.045) H* 04/23/20 22:49 Total Protein 7.6 gm/dl (6.4-8.2) 04/23/20 21:58 Albumin 3.6 gm/dl (3.4-5.0) 04/23/20 21:58 Globulin 4.0 gm/dl (2.5-4.0) 04/23/20 21:58 Albumin/Globulin Ratio 0.9 (0.9-2) 04/23/20 21:58 Lipase 79 U/L (73-393) 04/23/20 22:49 SARS-CoV-2 Ag (Rapid) Negative (Negative) 04/23/20 23:23 Blood Type A Positive 04/23/20 22:27 Antibody Screen NEGATIVE 04/23/20 22:[address] head : There is no hemorrhage, mass effect, or evidence of acute territorial ischemia by CT criteria. CT angio head/neck: 1. Mild narrowing of the distal right vertebral artery and distal left M1 segment. No additional areas of stenosis, occlusion, or aneurysm within the [place]. 2. No significant stenosis, occlusion, or dissection identified within the carotid or vertebral arteries. CT abdomen and pelvis 1. Cholelithiasis. 2. There is suggestion of a few punctate nonobstructing stones within the common bile duct. However, the common bile duct remains normal in caliber. This could be confirmed with follow-up ultrasound or MRCP. In addition, recommend correlation with LFTs. 3. No definite bowel wall thickening or obstruction. 4. Normal appendix. 5. Mild bladder wall thickening. This may be due to underdistention. EKG as per my interpretation : Rate 80, paced rhythm
[2020-04-24] MEDS ORDERED: GLUCAGON FOR INJ 1 MG VIAL SQ PRN (05:25)
[2020-04-24] MEDS ORDERED: DEXTROSE 50% 50 ML SYRINGE IV PRN (05:25)
[2020-04-24] MEDS ORDERED: GLUCOSE 40% GEL 15 GM TUBE PO PRN (05:25)
[2020-04-24] MEDS ORDERED: oxyCODONE HCL IR 5 MG TAB (IMMEDIATE RELEASE) PO PRN (05:25)
[2020-04-24] MEDS ORDERED: GLUCOSE 10 TABS/TUBE PO PRN (05:25)
[2020-04-24] MEDS ORDERED: ACETAMINOPHEN 325 MG TAB PO PRN (05:25)
[2020-04-24] MEDS ORDERED: ALBUT/IPRATROP 3MG/0.5MG NEB 3 ML VIAL INH PRN (05:25)
[2020-04-24] MEDS ORDERED: CARBOHYDRATES FOR HYPOGLYCEMIA PO PRN (05:25)
[2020-04-24] MEDS ORDERED: INFLUENZA ADMINISTRATION CHARGE ONE (06:21)
[2020-04-24] MEDS ORDERED: INFLUENZA VACCINE HIGH DOSE PF 65+ 0.7 ML SYR IM ONE (06:21)
[2020-04-24] MEDS: INSULIN ASPART 100 UNITS/ML 3 ML PEN SC SCH ×5 (06:32→20:33)
--- NOTE | 2020-04-24 07:17 | CT Scan Report ---
CT SCAN OF THE BRAIN WITHOUT IV CONTRAST CLINICAL HISTORY: Left-sided weakness. COMPARISON STUDY: CT of the brain dated 12/19/2019. TECHNIQUE: Unenhanced axial CT scan of the brain is performed from the vertex to the skull base. A do se lowering technique was utilized adhering to the principles of ALARA. FINDINGS: Brain parenchyma: A small focus of left frontal encephalomalacia is consistent with a remote infarct. There are age-related involutional changes noting mild to moderate patchy subcortical and periventr icular microangiopathic change. There is no hemorrhage, mass effect, or evidence of acute territorial ischemia by CT criteria. Summers-white matter differentiation is preserved. No extra-axial fluid collec tion is seen. Ventricles, sulci, cisterns: Prominent secondary to involutional change. Intracranial vasculature: There is atherosclerotic calcification of the cavernous carotid and vertebr al arteries. Calvarium: Unremarkable. Soft tissues: A small metallic foreign body is seen in the perinasal soft tissues. Sinuses and mastoids: The visualized paranasal sinuses are clear. The mastoid air cells are well pneu matized. Orbits: The bony orbits are grossly intact. IMPRESSION: There is no hemorrhage, mass effect, or evidence of acute territorial ischemia by CT eligio gomes. ACT 112: Negative or not required by law. Electronically signed by: Guerrero Hebert M.D. 04/24/2020 7:15 AM
--- NOTE | 2020-04-24 07:26 | CT Scan Report ---
HEAD & NECK CTA HISTORY: Left-sided weakness. Stroke Like Symptoms TECHNIQUE: Multiaxial CT images of the head were performed following the intravenous administration o f contrast to evaluate the major cerebral vessels. Multiaxial CT images of the neck were also perform ed following the intravenous administration of contrast to evaluate the major cervical vessels. Maxim um intensity projection images were also obtained. A dose lowering technique was utilized adhering to the principles of ALARA. COMPARISON: None. FINDINGS: There is no mass, hematoma, midline shift, or acute infarct. The intracranial internal carotid arteri es appear patent. Moderate calcified plaque within bilateral carotid siphons. Mild focal narrowing wi thin the distal right vertebral artery due to the calcified plaque. The major dural venous sinuses ap pear patent. Incidental note is made of a persistent posterior right circulation. Mild focal na rrowing within the distal left M1 segment. The bilateral ACAs and right MCA are patent. No occlusion or aneurysm identified. The aortic arch and proximal great vessels are widely patent. There is no significant stenosis, occ lusion, or dissection identified within the bilateral common carotid, internal carotid, or vertebral arteries. The heart is enlarged. Left-sided pacemaker is noted. Moderate calcified plaque within the bilateral carotid bifurcations. Degenerative changes within the thoracic spine. IMPRESSION: 1. Mild narrowing of the distal right vertebral artery and distal left M1 segment. No additional area s of stenosis, occlusion, or aneurysm within the [place]. 2. No significant stenosis, occlusion, or dissection identified within the carotid or vertebral arter ies. ACT 112: Negative or not required by law. Electronically signed by: Tremaine Blackmon M.D. 04/24/2020 7:25 AM
[2020-04-24] MEDS: FLUTICASONE/VILANTEROL 100/25MCG 14 PUFFS/INHALER INH SCH (08:29)
[2020-04-24] MEDS: GABAPENTIN 100 MG CAP PO SCH ×3 (08:31→17:06)
[2020-04-24] MEDS: ASPIRIN 81 MG ECTAB PO SCH (08:31)
[2020-04-24] MEDS: PANTOprazole 40 MG TAB PO SCH (08:31)
[2020-04-24] MEDS: hydrALAZINE HCL 25 MG TAB PO SCH ×3 (08:31→20:32)
[2020-04-24] MEDS: ISOSORBIDE DINITRATE 20 MG TAB PO SCH ×3 (08:32→17:06)
[2020-04-24] MEDS ORDERED: INSULIN GLARGINE 100 UNIT/ML VIAL SQ SCH (09:00)
--- NOTE | 2020-04-24 09:02 | CT Scan Report ---
ABDOMEN AND PELVIS CT WITHOUT CONTRAST CT DOSE: 1687.83 mGy.cm HISTORY: Lower abdominal pain. TECHNIQUE: Multiaxial CT images of the abdomen and pelvis were performed without contrast. A dose lo wering technique was utilized adhering to the principles of ALARA. COMPARISON STUDY: Abdomen and pelvis CT 06/05/2019. FINDINGS: The lung bases are clear. The heart is mildly enlarged. Pacemaker wires are noted. No pneum operitoneum. No pneumatosis. No suspicious lytic or blastic osseous lesions. The unenhanced liver, sp patricia, right adrenal gland, and pancreas are within normal limits. Postoperative changes at the left a drenal gland, unchanged. A few small gallstones. No gallbladder wall thickening. Questionable tiny st ones seen within the common bile duct. However, the common bile duct is normal in caliber. This is be st seen on images 180 and 187. Moderate calcified plaque within the normal caliber abdominal aorta. N o retroperitoneal or pelvic lymphadenopathy. Mild bladder wall thickening is likely due to underdiste ntion. The prostate gland is normal in size. Suboptimal evaluation for bowel pathology due to the [place] of intravenous and oral contrast. However, no definite bowel wall thickening or obstruction. Normal appendix. Mild bilateral perinephric edema. There is residual contrast within the renal collecting s ystems, ureters, bladder from the prior CT examination. No hydronephrosis. There is a 3.7 cm cyst wit hin the upper pole the left kidney. Moderate bilateral cortical renal thinning is noted. IMPRESSION: 1. Cholelithiasis. 2. There is suggestion of a few punctate nonobstructing stones within the common bile duct. However, the common bile duct remains normal in caliber. This could be confirmed with follow-up ultrasound or MRCP. In addition, recommend correlation with LFTs. 3. No definite bowel wall thickening or obstruction. 4. Normal appendix. 5. Mild bladder wall thickening. This may be due to underdistention. ACT 112: Negative or not required by law. Electronically signed by: Tremaine Blackmon M.D. 04/24/2020 9:00 AM
[2020-04-24 10:08] LABS: INR 3.4 (0.9-1.1); Prothrombin Time 33.5 Seconds (9.0-12.0)
[2020-04-24] MEDS ORDERED: PHARMACY GLYCEMIC MGMT CONSULT PRN (10:08)
[2020-04-24 10:17] LABS: BUN Creatinine Ratio 16.1 (10-20); Calcium 8.7 mg/dl (8.5-10.1); Creatinine Clr Calc Pharmacy 35.8 ml/min; Est GFR (African American) 29.3; Est GFR (Non-African American) 25.3; Magnesium 2.1 mg/dl (1.8-2.4); Potassium 3.8 mmol/L (3.5-5.1)
--- NOTE | 2020-04-24 12:00 | Pharmacy Report ---
Pharmacy Glycemic Short Note 2 - Date of Service April 24, 2020 - Glycemic Short BSG Results (Last 24 hours): 04/23/20 04/23/20 04/24/20 21:58 22:41 06:28 Glucose 221 H POC Glucose 226 H 214 H 04/24/20 04/24/20 07:42 09:30 Glucose 283 H POC Glucose 234 H OUTPATIENT ANTIDIABETIC REGIMEN: * Lantus 70 units QD * Humalog 5 units with breakfast, 25 units with lunch and dinner and 15 units for high carb snack * a1c: 9% 02/05/20 ASSESSMENT: * Patient presenting for hypertensive crisis and experiencing hyperglycemia * Past data indicates patient requires much less basal insulin while admitted with a tighter NovoLog scale * Patient received full home dose Lantus prior to consult. Will reduce dose starting tomorrow, but will certainly evaluate trend and make further adjustments tomorrow if needed. Will tighten NovoLog scale starting at lunch (only received 6 units with breakfast) * Patient is tolerating a diet PLAN FOR INPATIENT GLYCEMIC CONTROL: * Hold outpatient oral diabetes medications * Basal insulin * Lantus 75 units SQ this morning * Plan to initiate 30 units qam starting tomorrow * Bolus insulin * NovoLog per scale ACHS or Q6hrs while NPO * Goal Range: Low 110 mg/dL - High 140 mg/dL (was 140-180 with breakfast) * Correction Factor: 18 mg/dL/unit (was 25 mg/dL/unit with breakfast) * Nutritional / Prandial insulin per carb ratio of 1 unit per 6 grams CHO consumed (was 1 units per 15 g CHO consumed with breakfast) \
--- NOTE | 2020-04-24 12:29 | Electrocardiogram Report ---
Test Reason : Blood Pressure : / mmHG Vent. Rate : 081 BPM Atrial Rate : 052 BPM P-R Int : 000 ms QRS Dur : 204 ms QT Int : 530 ms P-R-T Axes : 000 179 -02 degrees QTc Int : 615 ms Poor data quality, interpretation may be adversely affected Ventricular-paced rhythm Abnormal ECG When compared with ECG of 09-FEB-2020 06:46, No significant change Confirmed by Javier Sharma ([id number]) on 04/24/2020 12:28:57 PM Referred By: REFERRED SELF Confirmed By:Javier Sharma
[2020-04-24 15:01] LABS: Appearance Urine Clear (Clear); Bacteria Urine Automated Negative (Negative); Bilirubin Urine Negative (Negative); Blood Urine Negative (Negative); Color Urine Yellow; Epithelial Cell Urine Auto 20-30 /lpf (0-5); Glucose Urine UA 2+ (Negative); Ketones Urine Negative (Negative); Leukocyte Esterase Urine Negative (Negative); Nitrite Urine Negative (Negative); Protein Urine 3+ (Negative); RBC Urine Automated 0-4 /hpf (0-4); Specific Gravity Urine 1.039 (1.000-1.030); Urobilinogen Urine Negative (Negative)
--- NOTE | 2020-04-24 15:39 | Neurology Consultation ---
Date of Consultation April 24, 2020 Assessment & Plan (1) Hypertensive crisis: 1. CT CTA head/neck- no acute findings 2. optimzie HTN, HLD, DM LDL <70 3. PT/OT for discharge needs 4. continue aspirin 81 mg Present on Admission?: Yes (2) Anticoagulated on Coumadin: 1. continue coumadin with therapeutic INR Present on Admission?: Yes (3) PAF (paroxysmal atrial fibrillation): 1. pace maker interrogation as scheduled 2. coumadin to therapeutic INR Present on Admission?: Yes Supervising Physician Co-Signing Physician Notes I have seen and discussed above patient with Dr Roxann Palacios, neurology . See my dict History of Present Illness Reason for Consultation: TIA Requesting Physician: Aj Ames MD Attending Physician: Aj Ames MD History of Present Illness Willis is a 65 year old male with PMH- stroke on Coumadin presenting with stroke like symptoms. He was driving and started getting very dizzy. He managed to get himself home and called his and EMS was called. He developed difficulty with speech which was worse than his residual from a prior stroke and some left arm and leg weakness with difficulty walking as well. His blood pressure is e levated per EMS when they arrived. He has been taking his Coumadin for his atrial fibrillation. He had a stroke about a year ago and on baby aspirin since then. He feels much better now and has been OOB to the chair. denies CP, SOB, abdominal pain, new bowel or bladder issues. he is unable to have an MRI due to his pacemaker. Allergies Allergy/AdvReac Type Severity Reaction Status Date / Time No Known Allergies Allergy Verified 04/23/20 23:02 Home Medications Medication Instructions Recorded Confirmed Type aspirin 81 mg PO QAM 02/05/18 04/23/20 History cholecalciferol (vitamin D3) 2,000 unit PO QAM 02/05/18 04/23/20 History [Vitamin D3] isosorbide dinitrate 20 mg PO TIDM 02/05/18 04/23/20 History metoprolol succinate [Toprol XL] 100 mg PO QAM 02/05/18 04/23/20 History pantoprazole [Protonix] 40 mg PO QAM 02/05/18 04/23/20 History rosuvastatin [Crestor] 40 mg PO HS 02/05/18 04/23/20 History gabapentin 100 mg PO TIDM 05/14/18 04/23/20 History albuterol sulfate [ProAir HFA] 2 puff INHALATION Q4H PRN 08/01/18 04/23/20 History fluticasone propionate [Flonase 2 spray INTRANASAL DAILY PRN 08/01/18 04/23/20 History Allergy Relief] ipratropium-albuterol 3 ml INHALATION QID PRN 08/01/18 04/23/20 History Vitron-C 1 tab PO BID 06/05/19 04/23/20 History insulin lispro [Humalog KwikPen See Rx Instructions .ROUTE .COMPLEX 06/05/19 04/23/20 History Insulin] hydralazine 75 mg PO TID 12/18/19 04/23/20 History warfarin 7.5 mg PO UD #30 tab 01/10/20 04/23/20 Rx fluticasone furoate-vilanterol 1 inh INHALATION QAM 03/02/20 04/23/20 History [Breo Ellipta] torsemide 10 mg PO QAM 03/02/20 04/23/20 History Lantus Solostar U-100 Insulin 70 unit SUBCUT DAILY 04/23/20 04/23/20 History lisinopril 5 mg PO DAILY 04/23/20 04/23/20 History warfarin 5 mg PO UD 04/23/20 04/23/20 History Patient History Medical History Aortic stenosis Severe aortic stenosis vs pseudo aortic stenosis due to low output per cardio note from 12/2019 ECHO Asthma Atrial fibrillation on chronic anticoagulation CAD (coronary artery disease) "nonobstructive" Chronic anemia Chronic kidney disease STAGE 4-F/U DR HERNANDEZ Chronic systolic (congestive) heart failure EF around 30-34% COPD (chronic obstructive pulmonary disease) Diabetic neuropathy DM type 2 (diabetes mellitus, type 2) Dyslipidemia GERD (gastroesophageal reflux disease) History of multiple pulmonary nodules Hypertension LBBB (left bundle branch block) Nocturnal hypoxia on 2L NC O2 HS Nonischemic cardiomyopathy S/p BIV AICD in place Pulmonary HTN PVD (peripheral vascular disease) Sleep apnea BIPAP-OXYGEN 2L/MIN HS Stroke 12/18/19-[facility] ADMISSION-RESIDUAL EFFECTS SPECCH DIFFICULTY-SHORT TERM MEMORY Thrombocytopenia F/U PCP Surgical History H/O cardiac catheterization Non nonobstructive CAD on 2017 cardiac cath H/O total adrenalectomy LEFT 25 YRS AGO History of colonoscopy History of esophagogastroduodenoscopy (EGD) Presence of combination internal cardiac defibrillator (ICD) and pacemaker Family History Sister Diabetes Brother Diabetes Other Hypertension Lung cancer Social History Smoking Status: Never smoker Tobacco Type: Smokeless Tobacco (Dip or Chew) Second Hand Exposure: No; Do You Dip or Chew Tobacco: Yes; Tobacco Cessation Education Requested by Patient: No Hx Alcohol Use: No Hx Substance Use: No Preferred Language: Ivorian Communication Ability: Effective Visual Impairment: Limited Fluid Dynamicist Required: No Beliefs That Will Affect Care: None marital status: Current Living Situation: Spouse current occupational status: retired 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 Other Information That Helps Us Care for You: No Feels Safe at Home: Yes Safety Concerns: Feels Safe At This Time Assistive Devices: CPAP and Oxygen - Continuous Review of Systems Review of Systems: All systems reviewed & are unremarkable except as noted in HPI & below and All systems reviewed & are unremarkable except as noted in Subjective Physical Exam Physical Exam: Physical Exam: Constitutional: appearance over nourished, healthy Ears, Nose, Mouth and Throat: mucous membranes moist, no injection and skin normal, eyes normal Cardiovascular: irregular Respiratory: course breath sounds Musculoskeletal: non pitting peripheral edema and good distal pulses Skin: no stigmata of neurocutaneous disease noted and normal and intact Eyes: extraocular muscles intact (EOMI) and pupils equal, round and reactive to light (PERRL) NEUROLOGIC EXAMINATION: Mental status: Alert and interactive Oriented to full date and location Oriented to person Speech slight aphasia (states residual from previous stroke) Cranial Nerves Normal findings for Cranial Nerves II - XII Reflexes: Deep tendon reflexes were symmetrical and graded 2/5. down going toes Sensory: light cool touch Coordination: finger to nose no bi pass Gait/Stance: Posture lying in bed Motor: Negative for pronator drift of out stretched arms with eyes closed. Strength: biceps triceps hand remarketing rep bilaterally 5/5, hip flex planter flex ext 5/5 Results & Data ([facility]) Vital Signs (Past 12 Hours) Vital Signs Temp Pulse Pulse Resp BP BP Pulse Ox 04/24/20 15:24 36.9 C 74 20 135/78 98 04/24/20 10:59 36.6 C 68 20 122/73 95 04/24/20 07:09 36.6 C 82 20 130/73 99 04/24/20 06:06 36.4 C L 78 20 176/89 H 98 Laboratory Results Abnormal lab results 04/23/20 04/23/20 04/23/20 Range/Units 21:58 21:58 21:58 RBC 4.67 L (4.7-6.1) M/uL Hgb 12.7 L (14.0-18.0) g/dL Hct 39.1 L (42-52) % RDW Coeff of Joey 14.7 H (11.5-14.5) % MPV 10.8 H (7.4-10.4) fL Lymph # (Auto) 0.73 L (1.2-3.4) K/uL [place] # (Auto) 0.62 H (0.11-0.59) K/uL PT 30.8 H (9.0-12.0) Seconds POC INR (0.9-1.1) INR 3.1 H (0.9-1.1) APTT 43.0 H (21.0-31.0) Seconds BUN 42 H (7-18) mg/dl Creatinine 2.55 H (0.6-1.4) mg/dl Glucose 221 H (70-99) mg/dl POC Glucose (70-99) mg/dl Troponin I 0.056 H* (0-0.045) ng/ml Ur Specific [place] (1.000-1.030) Urine Protein (Negative) Urine Glucose (UA) (Negative) U Epithel Cells (Auto) (0-5) /lpf 04/23/20 04/23/20 04/23/20 Range/Units 22:41 22:43 22:49 RBC (4.7-6.1) M/uL Hgb (14.0-18.0) g/dL Hct (42-52) % RDW Coeff of Joey (11.5-14.5) % MPV (7.4-10.4) fL Lymph # (Auto) (1.2-3.4) K/uL [place] # (Auto) (0.11-0.59) K/uL PT (9.0-12.0) Seconds POC INR 3.4 H (0.9-1.1) INR (0.9-1.1) APTT (21.0-31.0) Seconds BUN (7-18) mg/dl Creatinine (0.6-1.4) mg/dl Glucose (70-99) mg/dl POC Glucose 226 H (70-99) mg/dl Troponin I 0.057 H* (0-0.045) ng/ml Ur Specific [place] (1.000-1.030) Urine Protein (Negative) Urine Glucose (UA) (Negative) U Epithel Cells (Auto) (0-5) /lpf 04/24/20 04/24/20 04/24/20 Range/Units 06:28 07:42 09:30 RBC (4.7-6.1) M/uL Hgb (14.0-18.0) g/dL Hct (42-52) % RDW Coeff of Joey (11.5-14.5) % MPV (7.4-10.4) fL Lymph # (Auto) (1.2-3.4) K/uL [place] # (Auto) (0.11-0.59) K/uL PT 33.5 H (9.0-12.0) Seconds POC INR (0.9-1.1) INR 3.4 H (0.9-1.1) APTT (21.0-31.0) Seconds BUN (7-18) mg/dl Creatinine (0.6-1.4) mg/dl Glucose (70-99) mg/dl POC Glucose 214 H 234 H (70-99) mg/dl Troponin I (0-0.045) ng/ml Ur Specific [place] (1.000-1.030) Urine Protein (Negative) Urine Glucose (UA) (Negative) U Epithel Cells (Auto) (0-5) /lpf 04/24/20 04/24/20 04/24/20 Range/Units 09:30 11:07 14:25 RBC (4.7-6.1) M/uL Hgb (14.0-18.0) g/dL Hct (42-52) % RDW Coeff of Joey (11.5-14.5) % MPV (7.4-10.4) fL Lymph # (Auto) (1.2-3.4) K/uL [place] # (Auto) (0.11-0.59) K/uL PT (9.0-12.0) Seconds POC INR (0.9-1.1) INR (0.9-1.1) APTT (21.0-31.0) Seconds BUN 41 H (7-18) mg/dl Creatinine 2.54 H (0.6-1.4) mg/dl Glucose 283 H (70-99) mg/dl POC Glucose 273 H (70-99) mg/dl Troponin I (0-0.045) ng/ml Ur Specific [place] 1.039 H (1.000-1.030) Urine Protein 3+ H (Negative) Urine Glucose (UA) 2+ H (Negative) U Epithel Cells (Auto) 20-30 H (0-5) /lpf Diagnostic Findings CT head-There is no hemorrhage, mass effect, or evidence of acute territorial ischemia by CT criteria. CTA head and neck-Mild narrowing of the distal right vertebral artery and distal left M1 segment. No additional areas of stenosis, occlusion, or aneurysm within the [place]. No significant stenosis, occlusion, or dissection identified within the carotid or vertebral arteries. CT abd/pelvis-cholelithiasis. There is suggestion of a few punctate nonobstructing stones within the common bile duct. However, the common bile duct remains normal in caliber. This could be confirmed with follow-up ultrasound or MRCP. In addition, recommend correlation with LFTs. No definite bowel wall thickening or obstruction. Normal appendix. Mild bladder wall thickening. This may be due to underdistention.
--- NOTE | 2020-04-24 17:57 | Hospitalist Progress Note ---
Date of Service April 24, 2020 Assessment & Plan (1) Hypertensive crisis: Stroke like symptoms Hypertensive crisis Possible TIA -CT Head:There is no hemorrhage, mass effect, or evidence of acute territorial ischemia by CT criteria. -Head CTA:Mild narrowing of the distal right vertebral artery and distal left M1 segment. No additional areas of stenosis, occlusion, or aneurysm within the [place]. No significant stenosis, occlusion, or dissection identified within the carotid or vertebral arteries. -Neck CTA: Mild narrowing of the distal right vertebral artery and distal left M1 segment. No additional areas of stenosis, occlusion, or aneurysm within the [place]. No significant stenosis, occlusion, or dissection identified within the carotid or vertebral arteries. -Symptoms resolved -Plan to repeat CT head in 24 hours -Appreciate neurology input -Continue aspirin, Crestor -Also on Coumadin-currently held as INR supratherapeutic -PT/OT Cholelithiasis/choledocholithiasis -CT ABD:Cholelithiasis. There is suggestion of a few punctate nonobstructing stones within the common bile duct. However, the common bile duct remains normal in caliber. This could be confirmed with follow-up ultrasound or MRCP. In addition, recommend correlation with LFTs. No definite bowel wall thickening or obstruction. Normal appendix. Mild bladder wall thickening. This may be due to underdistention. LFTs within normal limit -As an outpatient surgery appointment on May 02 as per patient -Currently Asymptomatic -Monitor Chronic troponin elevation Denies any chest pain Monitor H/O Chronic systolic heart failure EF 35-39% S/P ICD Euvolemic currently Continue home medications Atrial fibrillation Paced rhythm Supratherapeutic INR Hold Coumadin today Monitor INR:3.4 Chronic LBBB H/O Nonocclusive CAD/PVD Continue Aspirin, statin H/O COPD/ARPIT/pulmonary hypertension No signs of exacerbation Continue home inhalers CKD IV Creatinine at baseline Monitor renal function DM II HbA1C: Dec 2019 Continue insulin therapy Monitor BGs DVT Px: Supratherapeutic INR Resume Coumadin as able Code Status Full code Disposition PT/OT prior to discharge Admission and Anticipated Discharge Date Admission Date: April 24, 2020 Subjective Patient is seen and examined at bedside Dizziness, slurred speech, left-sided weakness resolved Denies chest pain, dyspnea, nausea, vomiting, abdominal pain Offers no other complaints Sitting in chair comfortably this morning Review of Systems Review of Systems: All systems reviewed & are unremarkable except as noted in HPI & below Physical Exam Physical Exam: Physical Exam: Vitals signs as noted above General Appearance:Obese, no apparent distress Head: normocephalic, Atraumatic Eyes: normal inspection, EOMI Neck: supple, Trachea midline Respiratory/Chest: Normal breath sounds, CTA, +Pacemaker Cardiovascular: S1, S2, + systolic murmur Abdomen/GI:Soft, Non tender, +Distended, Bowel sounds present Extremities/Musculoskelatal:normal inspection, 1+ B/L LE edema Neurologic/Psych:AAOX3, grossly no focal neurological deficits Skin: normal color, warm Results & Data Results & Data ([facility]) Vital Signs (Past 12 Hours) Vital Signs Temp Pulse Pulse Resp BP BP Pulse Ox 04/24/20 15:24 36.9 C 74 20 135/78 98 04/24/20 10:59 36.6 C 68 20 122/73 95 04/24/20 07:09 36.6 C 82 20 130/73 99 04/24/20 06:06 36.4 C L 78 20 176/89 H 98 Laboratory Results Short CBC 04/23/20 Range/Units 21:58 WBC 6.95 (4.8-10.8) K/uL Hgb 12.7 L (14.0-18.0) g/dL Hct 39.1 L (42-52) % Plt Count 137 (130-400) K/uL BMP 04/23/20 04/24/20 21:58 09:30 Sodium 138 137 Potassium 3.9 3.8 Chloride 105 106 Carbon Dioxide 25 25 BUN 42 H 41 H Creatinine 2.55 H 2.54 H Glucose 221 H 283 H Calcium 9.3 8.7 Cardiac Enzymes 04/23/20 04/23/20 Range/Units 21:58 22:49 Troponin I 0.056 H* 0.057 H* (0-0.045) ng/ml Liver Function 04/23/20 Range/Units 21:58 Total Bilirubin 0.8 (0.2-1) mg/dl AST 20 (15-37) U/L ALT 27 (12-78) U/L Alkaline Phosphatase 112 (45-117) U/L Albumin 3.6 (3.4-5.0) gm/dl Urine 01/05/21 Range/Units 14:25 Urine Color Yellow Urine Appearance Clear (Clear) Urine pH 5.0 (4.5-7.5) Ur Specific [place] 1.039 H (1.000-1.030) Urine Protein 3+ H (Negative) Urine Glucose (UA) 2+ H (Negative)
--- NOTE | 2020-04-24 19:39 | CT Scan Report ---
CT OF THE HEAD WITHOUT CONTRAST CLINICAL HISTORY: tia, ff up study COMPARISON STUDY: Head CT and CTA of the head April 23, 2020. CT DOSE: 1768.17 mGy.cm TECHNIQUE: Helical axial images of the head were obtained without IV contrast. Automated exposure con trol was utilized for the study. A dose lowering technique was utilized adhering to the principles o f ALARA. FINDINGS: No acute intracranial hemorrhage, midline shift or mass effect is present. White matter hyp odensities are similar to exam of April 23, 2020. The appearance of the brain is unchanged. The vent ricular system is unremarkable. The basal cisterns are patent. No extra-axial collections are present . There are no findings to suggest acute dural sinus thrombosis or acute territorial infarct. A tiny metallic density within the subcutaneous tissues of the right upper nose is incidentally noted. IMPRESSION: No acute intracranial findings. No change in appearance of the brain. ACT 112: Negative or not required by law. Electronically signed by: Balwinder Juarez M.D. 04/24/2020 7:38 PM
[2020-04-24] MEDS ORDERED: ROSUVASTATIN CALCIUM 20 MG TAB PO SCH (21:00)
--- NOTE | 2020-04-24 22:53 | Progress Notes ---
DATE: 04/24/2020 ADDENDUM: This note is an addendum to the note of Roxann Eldridge of today's date. HISTORY OF PRESENT ILLNESS: This patient with known atrial fibrillation, presented with nonspecific dizziness, slurred speech and left upper extremity weakness. Symptoms resolved in 20 minutes. The patient has known atrial fibrillation. INR was therapeutic to supratherapeutic. He is also on antiplatelet therapy with aspirin. The patient's CT of the head showed no acute intracranial abnormalities. MRI could not be performed due to pacemaker. CTA showed mild narrowing of distal right vertebral artery and distal left M1 segment. No additional areas of stenosis, occlusion or aneurysm. No significant stenosis in the carotid or vertebral arteries. The patient was markedly hypertensive at that time. The patient denies that he had had a headache. OBJECTIVE: He is awake and alert. His speech was fairly unremarkable. No mariah flattening of the nasolabial folds. There was symmetric strength, although there was a minor right drift. Rapid alternating movements were about symmetric. IMPRESSION: Transient ischemic attack versus hypertensive urgency. Recommend gradual reduction of blood pressure. No change in aspirin and anticoagulants. Goal LDL of 70 or less and good control of diabetes.
[2020-04-25 06:32] LABS: Basophils # (auto) 0.01 K/uL (0-0.2); Basophils % (auto) 0.2 %; Eosinophils # (auto) 0.09 K/uL (0-0.5); Eosinophils % (auto) 1.6 %; Hematocrit (blood only) 33.2 % (42-52); Hemoglobin 10.6 g/dL (14.0-18.0); Immature Granulocytes # (auto) 0.01 K/uL (0.00-0.02); Immature Granulocytes % (auto) 0.2 %; Lymphocytes # (auto) 0.49 K/uL (1.2-3.4); Lymphocytes % (auto) 8.5 %; Mean Corpuscular Hemoglobin 26.8 pg (25-34); Mean Corpuscular Hgb Conc 31.9 g/dL (32-36); Mean Corpuscular Volume 83.8 fL (80-100); Mean Platelet Volume 9.7 fL (7.4-10.4); Monocytes # (auto) 0.51 K/uL (0.11-0.59); Monocytes % (auto) 8.8 %; Neutrophils # (auto) 4.67 K/uL (1.4-6.5); Neutrophils % (auto) 80.7 %; Platelet Count 100 K/uL (130-400); RDW Coefficient of Variation 14.7 % (11.5-14.5); RDW Standard Deviation 44.7 fL (36.4-46.3); Red Blood Count 3.96 M/uL (4.7-6.1); White Blood Count 5.78 K/uL (4.8-10.8)
[2020-04-25 06:42] LABS: Prothrombin Time 29.6 Seconds (9.0-12.0)
[2020-04-25 07:08] LABS: BUN Creatinine Ratio 16.2 (10-20); Calcium 8.5 mg/dl (8.5-10.1); Creatinine Clr Calc Pharmacy 33.6 ml/min; Est GFR (African American) 27.5; Est GFR (Non-African American) 23.7; Magnesium 2.4 mg/dl (1.8-2.4); Potassium 3.7 mmol/L (3.5-5.1)
[2020-04-25] MEDS ORDERED: INSULIN ASPART 100 UNITS/ML 3 ML PEN SC SCH ×2 (07:30→21:00)
[2020-04-25 07:52] LABS: Estimated Average Glucose 255 mg/dl; Hemoglobin A1C 10.5 % (4.5-5.6)
[2020-04-25] MEDS: ISOSORBIDE DINITRATE 20 MG TAB PO SCH (08:10)
[2020-04-25] MEDS: GABAPENTIN 100 MG CAP PO SCH (08:11)
[2020-04-25] MEDS: FLUTICASONE/VILANTEROL 100/25MCG 14 PUFFS/INHALER INH SCH (08:12)
[2020-04-25] MEDS: ASPIRIN 81 MG ECTAB PO SCH (08:12)
[2020-04-25] MEDS: hydrALAZINE HCL 25 MG TAB PO SCH (08:12)
[2020-04-25] MEDS: PANTOprazole 40 MG TAB PO SCH (08:13)
[2020-04-25] MEDS ORDERED: TORSEMIDE 10 MG TAB PO SCH (09:00)
[2020-04-25] MEDS ORDERED: INSULIN GLARGINE 100 UNIT/ML VIAL SQ SCH (09:00)
[2020-04-25] MEDS ORDERED: lisinopril 5 MG TAB PO SCH (09:00)
[2020-04-25] MEDS ORDERED: METOPROLOL SUCC 50MG EXT REL TAB PO SCH (09:00)
--- NOTE | 2020-04-25 10:06 | Discharge Summary ---
Date of Service April 25, 2020 Admission HPI Per Admitting Provider History obtained from patient and records. Medical history significant for chronic systolic heart failure secondary to nonischemic cardiomyopathy (EF of 35-39%, TTE 2019) status post ICD, chronic LBBB, hx nonocclusive CAD, PVD as per records, hx CVA, A. fib on Coumadin, hx severe aortic stenosis, hypertension, COPD as per records, ARPIT, DM 2 insulin requiring, chronic renal insufficiency (baseline creatinine of 2.6-3), chronic anemia (baseline hemoglobin of 11-12), chronic thrombocytopenia, past tobacco abuse Last confinement January 2024 sepsis secondary to Enterobacter bacteremia. Around 7 PM last night patient had sudden onset difficulty with speech associated with left arm and left leg weakness. Some trouble with walking. BP elevated upon arrival of EMS. Patient compliant with home medications. Patient denies chest pain, S OB, headache symptoms. Achy abdominal discomfort without change in bowel habits or dysuria. Strokelike symptoms resolved upon arrival at the ER. 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 Admission Exam Per Admitting Provider GENERAL: Comfortable, pleasant, obese, no respiratory distress SKIN: Pallor , warm HEENT: Alopecia, pale palpebral conjunctivae, no ptosis, dry buccal mucosa NECK : Supple, short neck, no tenderness CHEST : CTA, no tenderness HEART : RRR, systolic murmur ABDOMEN: Some distention, nontender EXTREMITIES : Minimal LE swelling, no LE tenderness, no other conspicuous deformities noted NEUROLOGIC : Coherent, no facial asymmetry, no other gross focality Principal Diagnosis Hypertensive crisis: Stroke like symptoms Possible TIA Cholelithiasis/choledocholithiasis Chronic troponin elevation H/O Chronic systolic heart failure Atrial fibrillation Chronic LBBB H/O Nonocclusive CAD/PVD H/O COPD/ARPIT/pulmonary hypertension CKD IV DM II Discharge Exam ROS-No Headache, No Visual Changes, No Nausea, No Vomiting, No Fever, No Chills, No Neck Pain or Stiffness, No Chest Pain, No Palpitations, No SOB, No TESFAYE, No Cough, No Sputum, No Wheezing, No Abdominal Pain, No Diarrhea, No Hematemesis, No Hemoptysis, No Unexpected Weight Loss, No Flank pain, No Melena, No Hematochezia, No Frequency, No Urgency, No Burning, No Hematuria, No Rashes, No Diaphoresis. Appetite is Normal Physical Exam Gen-AAO x 3, NAD, Afebrile, obese Head-NCAT, EOMI, PERRLA, Anicteric Sclera, No Posterior Pharyngeal Erythema Neck-Supple, No JVD, No Thyromegaly, No Masses, No LAD, No Bruits Lungs-Clear to Auscultation Bilaterally, No Rales, No Rhonchi, No Wheezing, No Crepitus Chest-No S4, +S1, +S2, No S3, + Murmur, No Rubs, No Gallops, No Ectopy Abdomen-Soft, Bowel Sounds Present, Non Tender, Non Distended, No Hepatomegaly, No Splenomegaly, No Palpable Masses, No Rebound, No Rigidity, No Guarding Musculoskeletal-Full Range of Motion Bilaterally, No CVAT Extremities-No Cyanosis, No Clubbing, No Edema Nuero-Cranial Nerves II-XII grossly intact, Motor WNL, DTRs WNL, Strength WNL, Non Focal Psych-Normal Mood Discharge Data Allergies Allergy/AdvReac Type Severity Reaction Status Date / Time No Known Allergies Allergy Verified 04/23/20 23:02 Consultations 04/24/20 05:25 Consult Neurology Routine Ordered Studies 04/23/20 22:27 CT angio head w con Urgent CT angio neck with con Urgent CT head/brain wo con Urgent 04/24/20 00:46 CT abd pelvis wo con Urgent 04/24/20 19:00 CT head/brain wo con Routine-No acute intracranial findings. No change in appearance of the brain. 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 (04/24/20) Allergies No Known Allergies Allergy (Verified 04/23/20 23:02) Height/Weight/Isolation Height 5 ft 8 in Weight 116.5 kg Chemistry 04/23/20 04/24/20 04/25/20 21:58 09:30 06:16 Sodium 138 137 138 Potassium 3.9 3.8 3.7 Chloride 105 106 108 H Carbon Dioxide 25 25 24 Anion Gap 8.0 6.0 6.0 BUN 42 H 41 H 44 H Creatinine 2.55 H 2.54 H 2.68 H Glucose 221 H 283 H 88 Urinalysis 04/24/20 14:25 Urine Color Yellow Urine Appearance Clear Urine pH 5.0 Ur Specific [place] 1.039 H Urine Protein 3+ H Urine Glucose (UA) 2+ H Urine Ketones Negative Urine Blood Negative Urine Nitrite Negative Urine Bilirubin Negative Hospital Course (1) Hypertensive crisis: Stroke like symptoms Hypertensive crisis Possible TIA -CT Head:There is no hemorrhage, mass effect, or evidence of acute territorial ischemia by CT criteria. -Head CTA:Mild narrowing of the distal right vertebral artery and distal left M1 segment. No additional areas of stenosis, occlusion, or aneurysm within the false pass of [place]. No significant stenosis, occlusion, or dissection identified within the carotid or vertebral arteries. -Neck CTA: Mild narrowing of the distal right vertebral artery and distal left M1 segment. No additional areas of stenosis, occlusion, or aneurysm within the false pass of [place]. No significant stenosis, occlusion, or dissection identified within the carotid or vertebral arteries. -Symptoms resolved -Repeat CT today-No acute intracranial findings. No change in appearance of the brain. -Appreciate neurology input -Continue aspirin, Crestor Lisinopril increased to 10 mg QD, Needs to be compliant c Meds -Also on Coumadin -PT/OT recommends DC home c family Cholelithiasis/choledocholithiasis -CT ABD:Cholelithiasis. There is suggestion of a few punctate nonobstructing stones within the common bile duct. However, the common bile duct remains normal in caliber. This could be confirmed with follow-up ultrasound or MRCP. In addition, recommend correlation with LFTs. No definite bowel wall thickening or obstruction. Normal appendix. Mild bladder wall thickening. This may be due to underdistention. LFTs within normal limit -He has an outpatient surgery appointment on May 02 as per patient -Currently Asymptomatic Chronic troponin elevation H/O Chronic systolic heart failure EF 35-39% S/P ICD Euvolemic currently Continue home medications Atrial fibrillation Paced rhythm Therapeutic INR Resume home dose Chronic LBBB H/O Nonocclusive CAD/PVD Continue Aspirin, statin H/O COPD/ARPIT/pulmonary hypertension No signs of exacerbation Continue home inhalers CKD IV Creatinine at baseline Monitor renal function DM II HbA1C: Dec 2019 Continue insulin therapy Monitor BGs DC Home today c Family Support Total Time Total Time Spent Total Time Spent (In Minutes): 45 mins Total Time Includes: Examination of the Patient, Discharge Planning, Medication Reconciliation and Communication With Other Providers Discharge Plan Discharge Items Patient Disposition: Home - Self-Care Reason For Visit: HTN CRISIS Discharge Diagnosis: Hypertensive crisis: Stroke like symptoms Possible TIA Cholelithiasis/choledocholithiasis Chronic troponin elevation H/O Chronic systolic heart failure Atrial fibrillation Chronic LBBB H/O Nonocclusive CAD/PVD H/O COPD/ARPIT/pulmonary hypertension CKD IV DM II Condition on Discharge: Good Health Concerns: Blood Pressure Control Goals: Slowly normalize BP Activity: Resume your previous activity Bathing: No limitations Sexual Activity: When tolerated Exercise/Sports: As tolerated Driving/Machine Use: No limitations Weightbearing: Full weightbearing Non-emergency contact: Primary Care Provider and Neurologist Call non-emergency contact if: you have any medication questions and your symptoms worsen Follow-up/Referrals: Mirlande Melton MD [Primary Care Provider] - 04/30/20 1:00 pm Diet: Carb Consistent or DM2, Dialysis Renal and Heart Healthy Addtl Attending Provider Instructions: Monitor your Blood Pressure at home and let Dr Lamas know if it gets too high, Control your sugars, [place] Pending Studies at Discharge: No Stand-Alone Forms: My [employer], Smoking Cessation Medications and DC Order Prescriptions: New lisinopril [Zestril] 5 mg Tablet 10 mg PO DAILY Qty: 60 RF: 0 Continued isosorbide dinitrate 10 mg Tablet 20 mg PO TIDM RF: 0 metoprolol succinate [Toprol XL] 100 mg Tablet Extended Release 24 Hr 100 mg PO QAM RF: 0 aspirin 81 mg Tablet,Delayed Release (Dr/Ec) 81 mg PO QAM RF: 0 pantoprazole [Protonix] 40 mg Tablet,Delayed Release (Dr/Ec) 40 mg PO QAM RF: 0 rosuvastatin [Crestor] 40 mg Tablet 40 mg PO HS RF: 0 cholecalciferol (vitamin D3) [Vitamin D3] 2,000 unit Capsule 2,000 unit PO QAM RF: 0 hydralazine 25 mg Tablet 75 mg PO TID RF: 0 warfarin 7.5 mg tablet 7.5 mg PO UD Qty: 30 RF: 0 Breo Ellipta 100-25 mcg/dose Blister With Device 1 inh INHALATION QAM RF: 0 torsemide 10 mg tablet 10 mg PO QAM RF: 0 gabapentin 100 mg Capsule 100 mg PO TIDM RF: 0 ipratropium-albuterol 0.5 mg-3 mg(2.5 mg base)/3 mL Solution For Nebulization 3 ml INHALATION QID PRN (Reason: Shortness Of Breath Or Wheezing) RF: 0 albuterol sulfate [ProAir HFA] 90 mcg/actuation Hfa Aerosol Inhaler 2 puff INHALATION Q4H PRN (Reason: Shortness Of Breath Or Wheezing) RF: 0 fluticasone propionate [Flonase Allergy Relief] 50 mcg/actuation [place],Suspension 2 spray INTRANASAL DAILY PRN (Reason: Nasal Congestion) RF: 0 insulin lispro [Humalog KwikPen Insulin] 100 unit/mL Insulin Pen See Rx Instructions .ROUTE .COMPLEX RF: 0 Vitron-C 65 mg iron- 125 mg Tablet,Delayed Release (Dr/Ec) 1 tab PO BID RF: 0 Lantus Solostar U-100 Insulin 100 unit/mL (3 mL) insulin pen 70 unit SUBCUT DAILY RF: 0 warfarin 5 mg tablet 5 mg PO UD RF: 0 Discontinued lisinopril 5 mg tablet 5 mg PO DAILY RF: 0 Discharge Orders: Discharge Order (Routine); Ordered 04/25/20 Ordered By: Richard Fabian/Other Patient Handouts: Controlling High Blood Pressure, Diabetes: Living Your Life Admission Data Admit Date/Time: 04/24/20 03:42 Attending Provider: Richard Newman Admit Provider: Claudio Vazquez Primary Care Provider: Mirlande Melton Other Providers: Roxann Eldridge ; Arpan Lara ; Roxann Palacios ; Scar Pennington
[2020-04-25 11:57] VITALS: TEMP 97.3; O2SAT 97
[2020-04-25 12:09] VITALS: BP 130/73; PULSE 78
== END 2020-04-25 12:00 | disposition home or self-care (01) ==
LOC: 2S 22:33 → ED 22:33 → SUATTDRO 04-24 03:42 → 2S 04-24 05:10

== ENCOUNTER 2020-08-05 00:38 | Inpatient (IN) ==
[2020-08-05 01:34] LABS: Basophils # (auto) 0.01 K/uL (0-0.2); Basophils % (auto) 0.1 %; Eosinophils # (auto) 0.08 K/uL (0-0.5); Eosinophils % (auto) 0.9 %; Immature Granulocytes # (auto) 0.01 K/uL (0.00-0.02); Immature Granulocytes % (auto) 0.1 %; Lymphocytes # (auto) 0.74 K/uL (1.2-3.4); Lymphocytes % (auto) 8.6 %; Mean Corpuscular Hemoglobin 26.8 pg (25-34); Mean Corpuscular Hgb Conc 32.4 g/dL (32-36); Mean Corpuscular Volume 82.8 fL (80-100); Mean Platelet Volume 9.9 fL (7.4-10.4); Monocytes # (auto) 0.42 K/uL (0.11-0.59); Monocytes % (auto) 4.9 %; Neutrophils # (auto) 7.38 K/uL (1.4-6.5); Neutrophils % (auto) 85.4 %; Platelet Count 110 K/uL (130-400); RDW Standard Deviation 45.8 fL (36.4-46.3); Red Blood Count 4.47 M/uL (4.7-6.1); White Blood Count 8.64 K/uL (4.8-10.8)
[2020-08-05 01:49] LABS: INR 2.7 (0.9-1.1); Partial Thromboplastin Ratio 1.5; Partial Thromboplastin Time 39.5 Seconds (21.0-31.0); Prothrombin Time 25.1 Seconds (9.0-12.0)
[2020-08-05 02:05] LABS: Albumin Globulin Ratio 0.9 (0.9-2); Albumin Level 3.4 gm/dl (3.4-5.0); BUN Creatinine Ratio 16.6 (10-20); Bilirubin,Total 0.8 mg/dl (0.2-1); Calcium 8.8 mg/dl (8.5-10.1); Creatinine Clr Calc Pharmacy 31.7 ml/min; Est GFR (African American) 24.2; Est GFR (Non-African American) 20.9; Globulin 3.8 gm/dl (2.5-4.0); Magnesium 1.9 mg/dl (1.8-2.4); Potassium 4.3 mmol/L (3.5-5.1); Total Protein 7.2 gm/dl (6.4-8.2); Troponin I 0.07 ng/ml (0-0.045)
[2020-08-05 02:34] LABS: Influenza A virus by PCR Negative (Neg); Influenza B virus by PCR Negative (Neg); RSV by PCR Negative (Neg)
[2020-08-05 02:45] LABS: SARS CoV2 RNA(COVID-19) InHosp POSITIVE (Negative)
[2020-08-05] MEDS ORDERED: ACETAMINOPHEN 325 MG TAB PO PRN (06:34)
[2020-08-05] MEDS ORDERED: XOPENEX/ATROVENT 1.25mg/0.5MG NEB COMBO NEB PRN (06:34)
[2020-08-05] MEDS ORDERED: IPRATROPIUM BROMIDE NEB SOLN 0.02% 2.5 ML VIAL INH PRN (06:34)
[2020-08-05] MEDS ORDERED: ALBUT/IPRATROP 3MG/0.5MG NEB 3 ML VIAL INH PRN (06:34)
[2020-08-05] MEDS ORDERED: LEVALBUTEROL 1.25MG/0.5ML NEB INH PRN (06:34)
[2020-08-05] MEDS ORDERED: NITROGLYCERIN SL 0.4 MG/TAB TAB SL PRN (06:34)
[2020-08-05] MEDS ORDERED: FLUTICASONE PROPIONATE NA SPR 16 GM BTL PRN (06:34)
[2020-08-05] MEDS ORDERED: POLYETHYLENE (MIRALAX) 17 GM PACK PO PRN (06:34)
[2020-08-05] MEDS ORDERED: ALBUTEROL HFA 8 GM INHALER INH PRN (06:43)
[2020-08-05] MEDS ORDERED: XOPENEX/ATROVENT 1.25mg/0.5MG NEB COMBO NEB SCH (07:00)
[2020-08-05] MEDS ORDERED: INSULIN HUMAN REGULAR PER UNIT 4 UNITS in SYRINGE 3.96 ML IV STA (07:15)
[2020-08-05] MEDS: IPRATROPIUM BROMIDE NEB SOLN 0.02% 2.5 ML VIAL INH SCH ×3 (07:43→20:11)
[2020-08-05] MEDS: LEVALBUTEROL 1.25MG/0.5ML NEB INH SCH ×3 (07:44→20:11)
--- NOTE | 2020-08-05 07:54 | Emergency Department Note ---
Impression & Plan COVID-19, Non-ST elevation (NSTEMI) myocardial infarction, Hyperglycemia due to diabetes mellitus ED Provider Note NAME: NIRANJAN VILLALTA AGE: 65 SEX: M ARRIVES VIA: Walk-In INFORMANT: Patient ED PROVIDER(S): Jo Gracia DO CHIEF COMPLAINT: Shortness of breath and chest pain PLAN: Disposition: Admitted to the [facility] service Condition: Guarded MEDICAL DECISION MAKING: This is a 65-year-old male patient who presents to the emergency department with cold symptoms over the past couple days that turned into cough and heavy breathing which started today. The patient lost his sense of taste and smell yesterday. The patient tested positive for Covid here in the emergency department. While in the ER, the patient had nonsustained runs of ventricular tachycardia. He had an elevated troponin with significant hyperglycemia. The patient remained hemodynamically stable and did not require oxygen. Chest x-ray was clear. The case was discussed with the [facility] and they will evaluate for further management. Triage Nursing notes reviewed and agree them. Additional history obtained from the patient's family at the bedside. Prior medical records reviewed Vital Signs: reviewed and remarkable for tachycardia Differential diagnosis: COVID-19, pneumonia, hypoxia, cardiac dysrhythmia, cardiac ischemia, STEMI Diagnostics interpreted by me: ECG: Intermittently ventricularly paced rhythm at a rate of 96. No obvious signs of ischemia. There is a nonspecific block. Cardiac Monitoring: Paced rhythm at 87. Laboratory studies: See below Imaging studies: As per my interpretation Portable chest x-ray: Cardiomegaly with no significant pulmonary infiltrates or pleural effusions. HPI: 65/M arrives for evaluation of heavy breathing. Over the past 2 days, the patient developed increased cough and shortness of breath and heavy breathing. He has had some episodes of vomiting. Patient has also noticed a loss of taste and smell. The patient had received the Covid vaccine at the beginning of July. He had been around other Covid positive patients. ROS: See above HPI for pertinent positives & negatives. A total of 10 systems reviewed and were otherwise negative. PAST MEDICAL HISTORY:See Below PAST SURGICAL HISTORY:See Below FAMILY HISTORY:See Below SOCIAL HISTORY:See Below HOME MEDICATIONS:See list ALLERGIES:None VITALS:See Below PHYSICAL EXAMINATION: HEENT: Head - normocephalic and atraumatic Pupils are equal, round, and reactive to light. Extraocular eye muscles are intact, and sclera are anicteric. Nose - moist nasal mucosa without discharge. Mouth - moist buccal mucosa. Oropharynx is nonerythematous and there is no tonsillar exudate or edema noted. Neck: Supple; no JVD Heart: Regular rate and rhythm. There is a normal S1 and S2 with no murmurs, clicks, or gallops appreciated. Lungs: Diminished breath sounds at both bases Abdomen: Soft, completely nontender, nondistended, with good bowel sounds. There are no palpable pulsatile masses or hepatosplenomegaly. There is no guarding, rigidity, or rebound noted. Extremities: No evidence of cyanosis, clubbing, or edema. There are easily palpable peripheral pulses. Skin: warm and dry with good turgor and no rashes. ED COURSE: Times/Reassessments: 0050: The patient was evaluated in room a 9. A complete history and physical was performed. I donned complete PPE as there was concern the patient was Covid positive. An order was placed for continuous cardiac monitoring. The patient was in a paced rhythm at a rate of 87. While I was in the room, the patient had a run of ventricular tachycardia. The patient was placed on the portable defibrillator/code cart. The patient had a twelve-lead EKG done as described above. He had a portable chest x-ray performed. The patient was monitored closely because of the above cardiac dysrhythmia. I reviewed the results of the labs and x-ray with the patient and his family. 0330: I reevaluated the patient at this time and he is feeling okay. He has had no further episodes of vomiting here in the emergency department. However, the patient does have an elevated troponin and is hyperglycemic. I discussed the case with the [facility] and they will evaluate for further management. Jo Gracia DO Past Med/Surg History Medical History Acute cerebrovascular accident Aortic stenosis Severe aortic stenosis vs pseudo aortic stenosis due to low output per cardio note from 12/2019 ECHO Asthma Atrial fibrillation on chronic anticoagulation CAD (coronary artery disease) "nonobstructive" Chronic anemia Chronic kidney disease STAGE 4-F/U DR HERNANDEZ Chronic systolic (congestive) heart failure EF around 30-34% COPD (chronic obstructive pulmonary disease) Diabetic neuropathy DM type 2 (diabetes mellitus, type 2) Dyslipidemia GERD (gastroesophageal reflux disease) History of multiple pulmonary nodules Hypertension LBBB (left bundle branch block) Nocturnal hypoxia on 2L NC O2 HS Nonischemic cardiomyopathy S/p BIV AICD in place Pulmonary HTN PVD (peripheral vascular disease) Sleep apnea BIPAP-OXYGEN 2L/MIN HS Stroke 12/18/19-[facility] ADMISSION-RESIDUAL EFFECTS SPECCH DIFFICULTY-SHORT TERM MEMORY Supratherapeutic INR Thrombocytopenia F/U PCP Surgical History H/O cardiac catheterization Non nonobstructive CAD on 2017 cardiac cath H/O total adrenalectomy LEFT 25 YRS AGO History of colonoscopy History of esophagogastroduodenoscopy (EGD) Presence of combination internal cardiac defibrillator (ICD) and pacemaker Family History Sister Diabetes Brother Diabetes Other Hypertension Lung cancer Social History Smoking Status: Unknown if ever smoked Tobacco Type: Smokeless Tobacco (Dip or Chew) Second Hand Exposure: No; Do You Dip or Chew Tobacco: Yes; Tobacco Cessation Education Requested by Patient: No Hx Alcohol Use: No Hx Substance Use: No Preferred Language: Yakut Communication Ability: Effective Visual Impairment: Limited Passport Support Manager Required: No Beliefs That Will Affect Care: None marital status: Current Living Situation: Spouse current occupational status: retired 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 Other Information That Helps Us Care for You: No Feels Safe at Home: Yes Assistive Devices: None Assistive Devices Comment: Glasses and CPAP Allergies Allergies Allergy/AdvReac Type Severity Reaction Status Date / Time No Known Allergies Allergy Verified 08/05/20 02:39 Home Meds Home Medications Medication Instructions Recorded Confirmed aspirin 81 mg PO QAM 02/05/18 08/05/20 cholecalciferol (vitamin D3) 2,000 unit PO QAM 02/05/18 08/05/20 [Vitamin D3] isosorbide dinitrate 20 mg PO TIDM 02/05/18 08/05/20 metoprolol succinate [Toprol XL] 100 mg PO QAM 02/05/18 08/05/20 pantoprazole [Protonix] 40 mg PO QAM 02/05/18 08/05/20 rosuvastatin [Crestor] 40 mg PO HS 02/05/18 08/05/20 gabapentin 100 mg PO TIDM 05/14/18 08/05/20 albuterol sulfate [ProAir HFA] 2 puff INHALATION Q4H PRN 08/01/18 08/05/20 fluticasone propionate [Flonase 2 spray INTRANASAL DAILY PRN 08/01/18 08/05/20 Allergy Relief] ipratropium-albuterol 3 ml INHALATION QID PRN 08/01/18 08/05/20 Vitron-C 1 tab PO BID 06/05/19 08/05/20 insulin lispro [Humalog KwikPen See Rx Instructions .ROUTE .COMPLEX 06/05/19 08/05/20 Insulin] hydralazine 75 mg PO TID 12/18/19 08/05/20 Breo Ellipta 1 inh INHALATION QAM 03/02/20 08/05/20 torsemide 10 mg PO QAM 03/02/20 08/05/20 Lantus Solostar U-100 Insulin 25 unit SUBCUT BID 04/23/20 08/05/20 warfarin 10 mg PO [id number] 04/23/20 08/05/20 atorvastatin 80 mg PO DAILY 08/05/20 08/05/20 baclofen 10 mg PO HS 08/05/20 08/05/20 warfarin 5 mg PO [id number] 08/05/20 08/05/20 Previous Rx's Medication Instructions Recorded lisinopril [Zestril] 10 mg PO DAILY #60 tab 04/25/20 Results & Data (ED) Vital Signs Vital Signs - 24 hr 08/05/20 00:40 08/05/20 01:37 08/05/20 01:45 Temperature 37.0 C Temperature Source Temporal Artery Scan Pulse Rate 114 H 103 H 105 H Pulse Rate [Bilateral Radial] Pulse Rate from SpO2 Sensor 106 H 107 H Pulse Rhythm Pulse Rhythm [Bilateral Radial] Pulse Strength [Bilateral Radial] Respiratory Rate 20 17 23 Respiratory Effort / Characteristics Spontaneous Short of Breath Respiratory Depth Normal Respiratory Pattern Regular Blood Pressure 152/106 H 153/102 H Blood Pressure [Right Arm] Blood Pressure Mean 121 119 Blood Pressure Mean [Right Arm] Blood Pressure Position Sitting Blood Pressure Position [Right Arm] Pulse Oximetry 92 93 95 Oxygen Delivery Method Room Air Room Air Room Air Sepsis Recent Fever Within 48 Hours No Sepsis New/Unexplained Change in Mental Status No Sepsis Action Taken by Nursing No Action Required 08/05/20 01:51 08/05/20 02:00 08/05/20 02:15 Temperature Temperature Source Pulse Rate 112 H 96 H 95 H Pulse Rate [Bilateral Radial] 113 H Pulse Rate from SpO2 Sensor 101 H 95 H Pulse Rhythm Regular Pulse Rhythm [Bilateral Radial] Regular Pulse Strength [Bilateral Radial] Normal Respiratory Rate 18 15 25 H Respiratory Effort / Characteristics Non-Labored Respiratory Depth Normal Respiratory Pattern Regular Blood Pressure 156/108 H Blood Pressure [Right Arm] 156/108 H Blood Pressure Mean 124 Blood Pressure Mean [Right Arm] 124 Blood Pressure Position Blood Pressure Position [Right Arm] Sitting Pulse Oximetry 96 95 95 Oxygen Delivery Method Room Air Room Air Room Air Sepsis Recent Fever Within 48 Hours Sepsis New/Unexplained Change in Mental Status Sepsis Action Taken by Nursing 08/05/20 02:30 08/05/20 02:45 08/05/20 03:00 Temperature Temperature Source Pulse Rate 103 H 103 H 94 H Pulse Rate [Bilateral Radial] Pulse Rate from SpO2 Sensor 94 H 98 H 98 H Pulse Rhythm Pulse Rhythm [Bilateral Radial] Pulse Strength [Bilateral Radial] Respiratory Rate 9 L 19 Respiratory Effort / Characteristics Respiratory Depth Respiratory Pattern Blood Pressure 154/104 H 152/110 H Blood Pressure [Right Arm] Blood Pressure Mean 120 124 Blood Pressure Mean [Right Arm] Blood Pressure Position Blood Pressure Position [Right Arm] Pulse Oximetry 95 96 94 Oxygen Delivery Method Room Air Room Air Room Air Sepsis Recent Fever Within 48 Hours Sepsis New/Unexplained Change in Mental Status Sepsis Action Taken by Nursing 08/05/20 03:15 08/05/20 03:30 08/05/20 03:45 Temperature Temperature Source Pulse Rate 90 96 H 100 H Pulse Rate [Bilateral Radial] Pulse Rate from SpO2 Sensor 89 96 H 98 H Pulse Rhythm Pulse Rhythm [Bilateral Radial] Pulse Strength [Bilateral Radial] Respiratory Rate 13 21 22 Respiratory Effort / Characteristics Respiratory Depth Respiratory Pattern Blood Pressure 164/104 H Blood Pressure [Right Arm] Blood Pressure Mean 124 Blood Pressure Mean [Right Arm] Blood Pressure Position Blood Pressure Position [Right Arm] Pulse Oximetry 95 96 96 Oxygen Delivery Method Room Air Room Air Room Air Sepsis Recent Fever Within 48 Hours Sepsis New/Unexplained Change in Mental Status Sepsis Action Taken by Nursing 08/05/20 04:00 08/05/20 04:15 08/05/20 04:30 Temperature Temperature Source Pulse Rate 99 H 92 H 97 H Pulse Rate [Bilateral Radial] Pulse Rate from SpO2 Sensor 99 H 94 H 102 H Pulse Rhythm Pulse Rhythm [Bilateral Radial] Pulse Strength [Bilateral Radial] Respiratory Rate 19 25 H Respiratory Effort / Characteristics Respiratory Depth Respiratory Pattern Blood Pressure 153/99 H 154/101 H Blood Pressure [Right Arm] Blood Pressure Mean 117 118 Blood Pressure Mean [Right Arm] Blood Pressure Position Blood Pressure Position [Right Arm] Pulse Oximetry 95 94 96 Oxygen Delivery Method Room Air Room Air Room Air Sepsis Recent Fever Within 48 Hours Sepsis New/Unexplained Change in Mental Status Sepsis Action Taken by Nursing 08/05/20 04:45 Temperature Temperature Source Pulse Rate 99 H Pulse Rate [Bilateral Radial] Pulse Rate from SpO2 Sensor 97 H Pulse Rhythm Pulse Rhythm [Bilateral Radial] Pulse Strength [Bilateral Radial] Respiratory Rate 24 Respiratory Effort / Characteristics Respiratory Depth Respiratory Pattern Blood Pressure Blood Pressure [Right Arm] Blood Pressure Mean Blood Pressure Mean [Right Arm] Blood Pressure Position Blood Pressure Position [Right Arm] Pulse Oximetry 91 Oxygen Delivery Method Room Air Sepsis Recent Fever Within 48 Hours Sepsis New/Unexplained Change in Mental Status Sepsis Action Taken by Nursing Laboratory Data Result diagrams: 08/05/20 07:42 08/07/20 07:40 Lab Results 08/05/20 08/05/20 08/05/20 Range/Units 01:20 01:20 01:20 WBC 8.64 (4.8-10.8) K/uL RBC 4.47 L (4.7-6.1) M/uL Hgb 12.0 L (14.0-18.0) g/dL Hct 37.0 L (42-52) % MCV 82.8 (80-100) fL MCH 26.8 (25-34) pg MCHC 32.4 (32-36) g/dL RDW Std Deviation 45.8 (36.4-46.3) fL RDW Coeff of Joey 15.0 H (11.5-14.5) % Plt Count 110 L (130-400) K/uL MPV 9.9 (7.4-10.4) fL Immature Gran % (Auto) 0.1 % Neut % (Auto) 85.4 % Lymph % (Auto) 8.6 % [place] % (Auto) 4.9 % Eos % (Auto) 0.9 % Baso % (Auto) 0.1 % Neut # (Auto) 7.38 H (1.4-6.5) K/uL Lymph # (Auto) 0.74 L (1.2-3.4) K/uL [place] # (Auto) 0.42 (0.11-0.59) K/uL Eos # (Auto) 0.08 (0-0.5) K/uL Baso # (Auto) 0.01 (0-0.2) K/uL Immature Gran # (Auto) 0.01 (0.00-0.02) K/uL PT 25.1 H (9.0-12.0) Seconds INR 2.7 H (0.9-1.1) APTT 39.5 H (21.0-31.0) Seconds PTT Ratio 1.5 Sodium 135 L (136-145) mmol/L Potassium 4.3 (3.5-5.1) mmol/L Chloride 104 (98-107) mmol/L Carbon Dioxide 24 (21-32) mmol/L Anion Gap 7.0 (3-11) BUN 50 H (7-18) mg/dl Creatinine 2.98 H (0.6-1.4) mg/dl Est Cr Clr Drug Dosing 31.7 ml/min Est GFR ( Amer) 24.2 Est GFR (Non-Af Amer) 20.9 BUN/Creatinine Ratio 16.6 (10-20) Glucose 336 H* (70-99) mg/dl Lactate (0.4-2.0) mmol/L Calcium 8.8 (8.5-10.1) mg/dl Magnesium 1.9 (1.8-2.4) mg/dl Total Bilirubin 0.8 (0.2-1) mg/dl AST 18 (15-37) U/L ALT 25 (12-78) U/L Alkaline Phosphatase 118 H (45-117) U/L Troponin I 0.070 H* (0-0.045) ng/ml Total Protein 7.2 (6.4-8.2) gm/dl Albumin 3.4 (3.4-5.0) gm/dl Globulin 3.8 (2.5-4.0) gm/dl Albumin/Globulin Ratio 0.9 (0.9-2) Beta-Hydroxybutyric Acd 3.00 H (0.2-2.81) mg/dl COVID-19 Eval Order SARS-CoV-2 (PCR) (Negative) Influenza Type A (PCR) (Neg) Influenza Type B (PCR) (Neg) RSV (RT-PCR) (Neg) 08/05/20 08/05/20 08/05/20 Range/Units 01:20 01:33 01:33 WBC (4.8-10.8) K/uL RBC (4.7-6.1) M/uL Hgb (14.0-18.0) g/dL Hct (42-52) % MCV (80-100) fL MCH (25-34) pg MCHC (32-36) g/dL RDW Std Deviation (36.4-46.3) fL RDW Coeff of Joey (11.5-14.5) % Plt Count (130-400) K/uL MPV (7.4-10.4) fL Immature Gran % (Auto) % Neut % (Auto) % Lymph % (Auto) % [place] % (Auto) % Eos % (Auto) % Baso % (Auto) % Neut # (Auto) (1.4-6.5) K/uL Lymph # (Auto) (1.2-3.4) K/uL [place] # (Auto) (0.11-0.59) K/uL Eos # (Auto) (0-0.5) K/uL Baso # (Auto) (0-0.2) K/uL Immature Gran # (Auto) (0.00-0.02) K/uL PT (9.0-12.0) Seconds INR (0.9-1.1) APTT (21.0-31.0) Seconds PTT Ratio Sodium (136-145) mmol/L Potassium (3.5-5.1) mmol/L Chloride (98-107) mmol/L Carbon Dioxide (21-32) mmol/L Anion Gap (3-11) BUN (7-18) mg/dl Creatinine (0.6-1.4) mg/dl Est Cr Clr Drug Dosing ml/min Est GFR ( Amer) Est GFR (Non-Af Amer) BUN/Creatinine Ratio (10-20) Glucose (70-99) mg/dl Lactate 1.1 (0.4-2.0) mmol/L Calcium (8.5-10.1) mg/dl Magnesium (1.8-2.4) mg/dl Total Bilirubin (0.2-1) mg/dl AST (15-37) U/L ALT (12-78) U/L Alkaline Phosphatase (45-117) U/L Troponin I (0-0.045) ng/ml Total Protein (6.4-8.2) gm/dl Albumin (3.4-5.0) gm/dl Globulin (2.5-4.0) gm/dl Albumin/Globulin Ratio (0.9-2) Beta-Hydroxybutyric Acd (0.2-2.81) mg/dl COVID-19 Eval Order CovFluRsv at [facility] SARS-CoV-2 (PCR) POSITIVE A* (Negative) Influenza Type A (PCR) Negative (Neg) Influenza Type B (PCR) Negative (Neg) RSV (RT-PCR) Negative (Neg) Administered Medications Acetaminophen (Acetaminophen 325 Mg Tab) 650 mg PO Q4H PRN PRN Reason: Pain or Fever Stop: 09/04/20 06:33 Last Admin: 08/06/20 05:18 Dose: 650 mg Documented by: [id number] Ascorbic Acid (Ascorbic Acid 500 Mg Tab) 250 mg PO BID [facility] Stop: 09/04/20 08:59 Last Admin: 08/06/20 08:11 Dose: 250 mg Documented by: [id number] Admin: 08/05/20 20:57 Dose: 250 mg Documented by: [id number] Admin: 08/05/20 08:46 Dose: 250 mg Documented by: [id number] Aspirin (Aspirin 81 Mg Ectab) 81 mg PO QAM [facility] Stop: 09/04/20 08:59 Last Admin: 08/07/20 09:18 Dose: 81 mg Documented by: [id number] Admin: 08/06/20 08:10 Dose: 81 mg Documented by: [id number] Admin: 08/05/20 08:47 Dose: 81 mg Documented by: [id number] Atorvastatin Calcium (Atorvastatin 40 Mg Tab) 80 mg PO DAILY [facility] Stop: 09/04/20 08:59 Last Admin: 08/07/20 09:18 Dose: 80 mg Documented by: [id number] Admin: 08/06/20 08:12 Dose: 80 mg Documented by: [id number] Admin: 08/05/20 08:47 Dose: 80 mg Documented by: [id number] Baclofen (Baclofen 10 Mg Tab) 10 mg PO HS [facility] Stop: 09/04/20 20:59 Last Admin: 08/06/20 20:07 Dose: 10 mg Documented by: [id number] Admin: 08/05/20 20:56 Dose: 10 mg Documented by: [id number] Ferrous Sulfate (Ferrous Sulfate 325 Mg Tab) 325 mg PO BID [facility] Stop: 09/04/20 08:59 Last Admin: 08/06/20 08:12 Dose: 325 mg Documented by: [id number] Admin: 08/05/20 20:57 Dose: 325 mg Documented by: [id number] Admin: 08/05/20 08:46 Dose: 325 mg Documented by: [id number] Fluticasone/Vilanterol (Fluticasone/Vilanterol 100/25mcg 14 Puffs/Inhaler) 1 puffs INH QAM [facility] Stop: 09/04/20 08:59 Last Admin: 08/07/20 09:19 Dose: 1 puffs Documented by: [id number] Admin: 08/06/20 08:12 Dose: 1 puffs Documented by: [id number] Admin: 08/05/20 08:47 Dose: 1 puffs Documented by: [id number] Gabapentin (Gabapentin 100 Mg Cap) 100 mg PO TIDM [facility] Stop: 09/04/20 07:59 Last Admin: 08/07/20 18:11 Dose: 100 mg Documented by: [id number] Admin: 08/07/20 12:47 Dose: 100 mg Documented by: [id number] Admin: 08/07/20 09:19 Dose: 100 mg Documented by: [id number] Admin: 08/06/20 16:45 Dose: 100 mg Documented by: [id number] Admin: 08/06/20 13:06 Dose: 100 mg Documented by: [id number] Admin: 08/06/20 08:11 Dose: 100 mg Documented by: [id number] Admin: 08/05/20 16:26 Dose: 100 mg Documented by: [id number] Admin: 08/05/20 11:17 Dose: 100 mg Documented by: [id number] Admin: 08/05/20 08:47 Dose: 100 mg Documented by: [id number] Sodium Chloride (Nss) 500 mls @ 125 mls/hr IV .Q4H [facility] Stop: 08/07/20 21:29 Last Admin: 08/07/20 18:57 Dose: 125 mls/hr Documented by: [id number] Insulin Aspart (Insulin Aspart 100 Units/Ml 3 Ml Pen) 0 units SC 0730,1130,1630 [facility] Stop: 09/06/20 16:29 Last Admin: 08/07/20 18:14 Dose: 17 units Documented by: [id number] Cosigned by: [id number] Insulin Glargine (Insulin Glargine Solostar 100 Units/Ml 3 Ml Pen) 45 units SQ DAILY [facility]; Protocol Stop: 09/06/20 08:59 Last Admin: 08/07/20 09:31 Dose: 45 units Documented by: [id number] Cosigned by: [id number] Ipratropium Merced (Ipratropium [place] Neb Soln 0.02% 2.5 Ml Vial) 0.5 mg INH Q2H PRN PRN Reason: Shortness Of Breath Or Wheezing Stop: 09/04/20 06:33 Last Admin: 08/06/20 07:18 Dose: 0.5 mg Documented by: [id number] Isosorbide Dinitrate (Isosorbide Dinitrate 20 Mg Tab) 20 mg PO TIDM [facility] Stop: 09/04/20 07:59 Last Admin: 08/07/20 18:07 Dose: Not Given Documented by: [id number] Admin: 08/07/20 12:48 Dose: Not Given Documented by: [id number] Admin: 08/07/20 09:17 Dose: 20 mg Documented by: [id number] Admin: 08/06/20 16:45 Dose: 20 mg Documented by: [id number] Admin: 08/06/20 13:08 Dose: 20 mg Documented by: [id number] Admin: 08/06/20 08:11 Dose: 20 mg Documented by: [id number] Admin: 08/05/20 16:26 Dose: 20 mg Documented by: [id number] Admin: 08/05/20 11:17 Dose: 20 mg Documented by: [id number] Admin: 08/05/20 08:47 Dose: 20 mg Documented by: [id number] Levalbuterol HCl (Levalbuterol 1.25mg/0.5ml Neb) 1.25 mg INH Q2H PRN PRN Reason: Shortness Of Breath Or Wheezing Stop: 09/04/20 06:33 Last Admin: 08/06/20 07:18 Dose: 1.25 mg Documented by: [id number] Lisinopril (Lisinopril 10 Mg Tab) 10 mg PO DAILY [facility] Stop: 09/04/20 08:59 Last Admin: 08/07/20 09:18 Dose: 10 mg Documented by: [id number] Admin: 08/06/20 08:11 Dose: 10 mg Documented by: [id number] Admin: 08/05/20 08:46 Dose: 10 mg Documented by: [id number] Metoprolol Succinate (Metoprolol Succ 50mg Ext Rel Tab) 100 mg PO BID [facility] Stop: 09/05/20 20:59 Last Admin: 08/07/20 09:19 Dose: 100 mg Documented by: [id number] Admin: 08/06/20 20:08 Dose: 100 mg Documented by: [id number] Pantoprazole Sodium (Pantoprazole 40 Mg Tab) 40 mg PO QAM [facility] Stop: 09/04/20 08:59 Last Admin: 08/07/20 09:17 Dose: 40 mg Documented by: [id number] Admin: 08/06/20 08:10 Dose: 40 mg Documented by: [id number] Admin: 08/05/20 08:46 Dose: 40 mg Documented by: [id number] Rosuvastatin Calcium (Rosuvastatin Calcium 20 Mg Tab) 40 mg PO HS [facility] Stop: 09/04/20 20:59 Last Admin: 08/06/20 20:07 Dose: 40 mg Documented by: [id number] Admin: 08/05/20 20:55 Dose: 40 mg Documented by: [id number] Torsemide (Torsemide 10 Mg Tab) 10 mg PO QAM [facility] Stop: 09/04/20 08:59 Last Admin: 08/07/20 09:17 Dose: 10 mg Documented by: [id number] Admin: 08/06/20 08:11 Dose: 10 mg Documented by: [id number] Admin: 08/05/20 08:46 Dose: 10 mg Documented by: [id number] Vitamin D (Cholecalciferol 1,000 Units 25 Mcg Tab) [facility] [place]: 09/04/20 08:59 Last Admin: 08/07/20 09:18 Dose: 2,000 units Documented by: [id number] Admin: 08/06/20 08:11 Dose: 2,000 units Documented by: [id number] Admin: 08/05/20 08:46 Dose: 2,000 units Documented by: [id number] Warfarin Sodium (Warfarin Sod 10 Mg Tab) 10 mg PO [id number] [facility] Stop: 09/05/20 15:59 Last Admin: 08/06/20 16:44 Dose: 10 mg Documented by: [id number] Warfarin Sodium (Warfarin Sod 5 Mg Tab) 5 mg PO [id number] [facility] Stop: 09/04/20 15:59 Last Admin: 08/07/20 19:58 Dose: Not Given Documented by: [id number] Admin: 08/05/20 16:26 Dose: 5 mg Documented by: [id number] Discontinued Medications Doxycycline Hyclate (Doxycycline Hyclate 100 Mg Cap) 100 mg PO DAILY@0600,1800 [facility] Stop: 08/12/20 09:59 Last Admin: 08/05/20 11:17 Dose: 100 mg Documented by: [id number] Hydralazine HCl (Hydralazine Hcl 25 Mg Tab) 75 mg PO TID [facility] Stop: 09/04/20 08:59 Last Admin: 08/07/20 14:31 Dose: 75 mg Documented by: [id number] Admin: 08/07/20 09:17 Dose: 75 mg Documented by: [id number] Admin: 08/06/20 20:07 Dose: 75 mg Documented by: [id number] Admin: 08/06/20 13:06 Dose: 75 mg Documented by: [id number] Admin: 08/06/20 08:11 Dose: 75 mg Documented by: [id number] Admin: 08/05/20 20:59 Dose: 75 mg Documented by: [id number] Admin: 08/05/20 13:04 Dose: 75 mg Documented by: [id number] Admin: 08/05/20 08:46 Dose: 75 mg Documented by: [id number] Insulin Human Regular 4 units/ (Syringe) 4 mls @ 0 mls/hr IV ONE STA Stop: 08/05/20 07:16 Last Admin: 08/05/20 08:42 Dose: 4 mls/hr Documented by: [id number] Cosigned by: [id number] Insulin Human Regular 8 units/ (Syringe) 8 mls @ 30 mls/min IV ONE ONE Stop: 08/06/20 12:31 Last Admin: 08/06/20 13:06 Dose: 30 mls/min Documented by: [id number] Cosigned by: [id number] Insulin Aspart (Insulin Aspart 100 Units/Ml 3 Ml Pen) 0 units SC ACHS [facility] Stop: 09/04/20 07:29 Last Admin: 08/07/20 12:54 Dose: 10 units Documented by: [id number] Cosigned by: [id number] Admin: 08/07/20 08:00 Dose: 8 units Documented by: [id number] Cosigned by: [id number] Admin: 08/06/20 20:49 Dose: 12 units Documented by: [id number] Cosigned by: [id number] Admin: 08/06/20 18:04 Dose: 21 units Documented by: [id number] Cosigned by: [id number] Admin: 08/06/20 13:07 Dose: 31 units Documented by: [id number] Cosigned by: [id number] Admin: 08/06/20 08:00 Dose: 9 units Documented by: [id number] Cosigned by: [id number] Admin: 08/05/20 21:00 Dose: 4 units Documented by: [id number] Cosigned by: [id number] Admin: 08/05/20 18:05 Dose: 11 units Documented by: [id number] Cosigned by: [id number] Admin: 08/05/20 12:30 Dose: 16 units Documented by: [id number] Cosigned by: [id number] Admin: 08/05/20 08:45 Dose: 7 units Documented by: [id number] Cosigned by: [id number] Insulin Aspart (Insulin Aspart 100 Units/Ml 3 Ml Pen) 0 units SC TODAY@0000,0400 [facility] Stop: 08/06/20 04:01 Last Admin: 08/06/20 04:11 Dose: 3 units Documented by: [id number] Cosigned by: [id number] Admin: 08/06/20 00:17 Dose: 3 units Documented by: [id number] Cosigned by: [id number] Insulin Glargine (Insulin Glargine Solostar 100 Units/Ml 3 Ml Pen) 25 units SQ BID [facility] Stop: 09/04/20 08:59 Last Admin: 08/05/20 08:48 Dose: 25 units Documented by: [id number] Cosigned by: [id number] Insulin Glargine (Insulin Glargine Solostar 100 Units/Ml 3 Ml Pen) 15 units SQ NOW ONE Stop: 08/05/20 09:31 Last Admin: 08/05/20 09:35 Dose: 15 units Documented by: [id number] Cosigned by: [id number] Insulin Glargine (Insulin Glargine Solostar 100 Units/Ml 3 Ml Pen) 40 units SQ DAILY [facility]; Protocol Stop: 09/05/20 08:59 Last Admin: 08/06/20 08:33 Dose: 40 units Documented by: [id number] Cosigned by: [id number] Ipratropium Merced (Ipratropium Merced Neb Soln 0.02% 2.5 Ml Vial) 0.5 mg INH Q6R ALYSIA Stop: 09/04/20 06:59 Last Admin: 08/06/20 00:03 Dose: 0.5 mg Documented by: [id number] Admin: 08/05/20 20:11 Dose: 0.5 mg Documented by: [id number] Admin: 08/05/20 13:25 Dose: 0.5 mg Documented by: [id number] Admin: 08/05/20 07:43 Dose: 0.5 mg Documented by: [id number] Levalbuterol HCl (Levalbuterol 1.25mg/0.5ml Neb) 1.25 mg INH Q6R ALYSIA Stop: 09/04/20 06:59 Last Admin: 08/06/20 00:03 Dose: 1.25 mg Documented by: [id number] Admin: 08/05/20 20:11 Dose: 1.25 mg Documented by: [id number] Admin: 08/05/20 13:25 Dose: 1.25 mg Documented by: [id number] Admin: 08/05/20 07:44 Dose: 1.25 mg Documented by: [id number] Metoprolol Succinate (Metoprolol Succ 50mg Ext Rel Tab) 100 mg PO QAM ALYSIA Stop: 09/04/20 08:59 Last Admin: 08/06/20 08:11 Dose: 100 mg Documented by: [id number] Admin: 08/05/20 08:46 Dose: 100 mg Documented by: [id number] Metoprolol Succinate (Metoprolol Succ 50mg Ext Rel Tab) 50 mg PO QPM ALYSIA Stop: 09/04/20 20:59 Last Admin: 08/05/20 20:56 Dose: 50 mg Documented by: [id number] Metoprolol Tartrate (Metoprolol Tartrate 1 Mg/Ml Vial) 5 mg IV NOW STA Stop: 08/06/20 04:36 Last Admin: 08/06/20 05:09 Dose: 5 mg Documented by: [id number] Imaging Data Radiologist's Impression: Chest X-Ray 08/05/20 01:15 XR chest 1V portable CLINICAL HISTORY: SEPSIS COMPARISON STUDY: 02/04/2020 FINDINGS: The heart is enlarged. There is mild central vascular prominence without evidence of overt failure. Increased markings within the left midlung zone laterally, likely relating to overlying soft tissue. If symptoms persist, a PA and lateral study could be obtained in follow-up. There are no large pleural effusions[. There is a left subclavian pacer/defibrillator. IMPRESSION: 1. Cardiomegaly 2. Mild central vascular prominence without evidence of overt failure 3. Slightly prominent markings the left midlung zone laterally, likely relating to overlying soft tissue. If symptoms persist, a PA and lateral study could be obtained in follow-up. ACT 112: Negative or not required by law. Electronically signed by: Indra Aguilar M.D. 08/05/2020 8:35 AM Discharge Plan Visit Data Chief Complaint: Respiratory Problems Stated Complaint: HARD TO BREATHE ED Provider: Jo Gracia Discharge Problem: COVID-19, Non-ST elevation (NSTEMI) myocardial infarction, Hyperglycemia due to diabetes mellitus Patient Disposition: Admitted As Inpatient Discharge Instructions Interventions: ED Discharge Assessment Last Done: 08/05/20 05:23
[2020-08-05 07:59] LABS: Basophils # (auto) 0.01 K/uL (0-0.2); Basophils % (auto) 0.1 %; Eosinophils # (auto) 0.07 K/uL (0-0.5); Hematocrit (blood only) 33.1 % (42-52); Hemoglobin 10.8 g/dL (14.0-18.0); Immature Granulocytes # (auto) 0.01 K/uL (0.00-0.02); Immature Granulocytes % (auto) 0.1 %; Lymphocytes # (auto) 0.56 K/uL (1.2-3.4); Lymphocytes % (auto) 8.3 %; Mean Corpuscular Hemoglobin 26.9 pg (25-34); Mean Corpuscular Hgb Conc 32.6 g/dL (32-36); Mean Corpuscular Volume 82.5 fL (80-100); Mean Platelet Volume 9.8 fL (7.4-10.4); Monocytes # (auto) 0.62 K/uL (0.11-0.59); Monocytes % (auto) 9.2 %; Neutrophils # (auto) 5.48 K/uL (1.4-6.5); Neutrophils % (auto) 81.3 %; Platelet Count 104 K/uL (130-400); RDW Standard Deviation 45.5 fL (36.4-46.3); Red Blood Count 4.01 M/uL (4.7-6.1); White Blood Count 6.75 K/uL (4.8-10.8)
[2020-08-05 08:25] LABS: BUN Creatinine Ratio 17.6 (10-20); Calcium 8.9 mg/dl (8.5-10.1); Creatinine Clr Calc Pharmacy 31.9 ml/min; Est GFR (African American) 25.6; Est GFR (Non-African American) 22.1; Magnesium 1.9 mg/dl (1.8-2.4); Potassium 4.2 mmol/L (3.5-5.1)
--- NOTE | 2020-08-05 08:36 | XRay Report ---
XR chest 1V portable CLINICAL HISTORY: SEPSIS COMPARISON STUDY: 02/04/2020 FINDINGS: The heart is enlarged. There is mild central vascular prominence without evidence of overt failure. Increased markings within the left midlung zone laterally, likely relating to overlying soft tissue. If symptoms persist, a PA and lateral study could be obtained in follow-up. There are no lar ge pleural effusions[. There is a left subclavian pacer/defibrillator. IMPRESSION: 1. Cardiomegaly 2. Mild central vascular prominence without evidence of overt failure 3. Slightly prominent markings the left midlung zone laterally, likely relating to overlying soft tis jayla. If symptoms persist, a PA and lateral study could be obtained in follow-up. ACT 112: Negative or not required by law. Electronically signed by: Indra Aguilar M.D. 08/05/2020 8:35 AM
[2020-08-05 08:38] LABS: Troponin I 0.071 ng/ml (0-0.045)
[2020-08-05 08:39] LABS: Beta-Hydroxybutyrate 4.36 mg/dl (0.2-2.81)
[2020-08-05] MEDS: INSULIN ASPART 100 UNITS/ML 3 ML PEN SC SCH ×4 (08:45→21:00)
[2020-08-05] MEDS: PANTOprazole 40 MG TAB PO SCH (08:46)
[2020-08-05] MEDS: FERROUS SULFATE 325 MG TAB PO SCH ×2 (08:46→20:57)
[2020-08-05] MEDS: lisinopril 10 MG TAB PO SCH (08:46)
[2020-08-05] MEDS: ASCORBIC ACID 500 MG TAB PO SCH ×2 (08:46→20:57)
[2020-08-05] MEDS: METOPROLOL SUCC 50MG EXT REL TAB PO SCH (08:46)
[2020-08-05] MEDS: hydrALAZINE HCL 25 MG TAB PO SCH ×3 (08:46→20:59)
[2020-08-05] MEDS: CHOLECALCIFEROL 1,000 UNITS 25 MCG TAB PO SCH (08:46)
[2020-08-05] MEDS: TORSEMIDE 10 MG TAB PO SCH (08:46)
[2020-08-05] MEDS: FLUTICASONE/VILANTEROL 100/25MCG 14 PUFFS/INHALER INH SCH (08:47)
[2020-08-05] MEDS: ASPIRIN 81 MG ECTAB PO SCH (08:47)
[2020-08-05] MEDS: ATORVASTATIN 40 MG TAB PO SCH (08:47)
[2020-08-05] MEDS: GABAPENTIN 100 MG CAP PO SCH ×3 (08:47→16:26)
[2020-08-05] MEDS: ISOSORBIDE DINITRATE 20 MG TAB PO SCH ×3 (08:47→16:26)
[2020-08-05] MEDS ORDERED: PHARMACY GLYCEMIC MGMT CONSULT PRN (08:49)
--- NOTE | 2020-08-05 08:53 | History and Physical Report ---
DATE OF ADMISSION: 08/05/2020 CHIEF COMPLAINT: Shortness of breath, COVID. HISTORY OF PRESENT ILLNESS: A 65-year-old male with past medical history significant for type 2 diabetes, hyperlipidemia, history of pancreatitis, gallstones, COPD mild , obstructive sleep apnea on CPAP with oxygen, mild persistent asthma, pulmonary nodules, chronic sinusitis, chronic systolic CHF, nonischemic cardiomyopathy, atrial fibrillation, history of left middle cerebral artery stroke, nonrheumatic aortic valve stenosis, hypertension, left bundle branch block, pulmonary hypertension, peripheral vascular disease, obesity, gastroparesis, history of noncompliance, status post AICD, history of chewing tobacco. Lives with his , presents with shortness of breath. The patient states since last couple of days, he is getting more short of breath, coughing up some phlegm. When he was coming to the hospital, he had some chest pain, but that got resolved now. Has lost sense of smell and taste for last 2 days, has severe headache in the back of the head. No blurred visions, no earache. Has some congested nose, mild sore throat. Appetite is okay. No nausea, no vomiting, no abdominal pain. Normal bowel and bladder movements. Feeling somewhat lightheaded, dizzy. The patient finished 2 doses of COVID vaccine, last dose was on 07/26/2020. He works at [employer] and three people recently got diagnosed with COVID. In the ER, the patient's COVID test came back as positive, but he was saturating fine on the room air. There is a long episode of V-tach in the ER. Currently resting comfortably and hemodynamically stable ALLERGIES: No known drug allergies. PAST MEDICAL HISTORY: As mentioned above. PAST SURGICAL HISTORY: History of adrenal gland removed to control BP, cardiac catheterization, colonoscopy, EGD with endoscopic ultrasound, injection of the lumbar cervical spine, status post defibrillator, skin cancer removed from behind the left ear. MEDICATIONS: The patient is on albuterol 2 puffs q. 4 hours p.r.n., aspirin 81 mg p.o. a.m., atorvastatin 80 mg p.o. daily, baclofen 10 mg p.o. at bedtime, Breo Ellipta 1 inhalation daily, vitamin D 2000 units p.o. a.m., Flonase 2 sprays intranasal daily p.r.n., gabapentin 100 mg p.o. t.i.d., hydralazine 75 mg p.o. t.i.d., insulin sliding scale, DuoNebs 3 mL q.i.d. p.r.n., isosorbide dinitrate 20 mg p.o. t.i.d. with meals, Lantus 25 units b.i.d., lisinopril 10 mg p.o. daily, metoprolol succinate 100 mg p.o. a.m., Protonix 40 mg p.o. a.m., Crestor 40 mg p.o. at bedtime, torsemide 10 mg p.o. a.m., Vitron-C 1 tablet p.o. b.i.d., Coumadin 10 mg 3 times a week and 5 mg 4 times a week. FAMILY HISTORY: Significant for brother had lung cancer, diabetes; mother has CHF; sister has diabetes, lung cancer; son has hypertension, nephrolithiasis. SOCIAL HISTORY: . Chews one can of tobacco daily. No alcohol use, no drug use. REVIEW OF SYSTEMS: As per HPI. Rest of the review of systems is negative. PHYSICAL EXAMINATION: GENERAL: The patient is obese, not in acute distress. VITAL SIGNS: Temperature 37, pulse 103, respiratory rate 17, blood pressure 137/91, oxygen 95% on room air. HEENT: Pupils equal, round, and reactive to light. Oral mucosa moist. NECK: No JVD, no neck masses seen. CARDIOVASCULAR: S1, S2 heard. Regular rate and rhythm, no murmur, no gallop. RESPIRATORY SYSTEM: Normal AP diameter. No accessory muscle use. No wheezing, no crackles. ABDOMEN: Soft, bowel sounds present, nontender. No distention. CENTRAL NERVOUS SYSTEM: Cranial nerves II through XII grossly intact, nonfocal. EXTREMITIES: Trace pedal edema, no erythema seen. LABORATORY DATA: WBC 8.6, hemoglobin 12, hematocrit 37, platelets 110. PT 25.1, INR 2.7, APTT 39.5. Sodium 135, potassium 4.3, chloride 104, bicarbonate 24, BUN 50, creatinine 2.9, serum glucose 336, lactate 1.1, calcium 8.8, magnesium 1.9, total bilirubin 0.8, AST 18, ALT 25, alkaline phosphatase 118. Troponin I of 0.07, beta hydroxybutyric acid 4.36. SARS-CoV-2 PCR positive. Influenza A and B PCR negative, RSV PCR negative. IMAGING DATA: Chest x-ray, no acute findings seen. ASSESSMENT AND PLAN: This is a 65-year-old male who presents with shortness of breath and found to be COVID positive. 1. Shortness of breath, COVID positive: Not requiring any oxygen currently, saturating fine on room air. Has cough with some phlegm, has loss of sense of smell and taste for the last couple of days and has some headache. Had some chest pain when he was coming to the ER, but that has resolved now. The patient already had COVID shots, second dose of COVID shot was around 07/26/2020. Got exposed at workplace. We will closely monitor in the tele floor. If desaturates, we will start on steroids and remdesivir. Closely monitor. 2. Chronic systolic and diastolic congestive heart failure with EF of 30% to 35% and severe aortic stenosis and also pulmonary hypertension. Does not seem to have any volume overload. Will continue his home torsemide, hydralazine, isosorbide dinitrate, lisinopril, and Toprol-XL. We will monitor. Echo as per cardiology. 3. History of mild chronic obstructive pulmonary disease. Does not seem to be in exacerbation, but will continue with around the clock nebs and p.r.n. and continue his home inhalers. 4. Obstructive sleep apnea: Continue CPAP at bedtime. Use CPAP while sleeping. 5. Nonsustained ventricular tachycardia in ER. The patient has automatic implantable cardioverter-defibrillator. Will monitor. Await cardiac input. Closely monitor.Electrolytes ok 6. Mild elevation of troponin. Has chronic elevation. .Will follow serial troponin. 7. Diabetes: Continue his home Lantus 25 units b.i.d., insulin sliding scale, currently n.p.o. until seen by cardiology. If he still continues to be n.p.o., will need to cut back on the Lantus. Follow hemoglobin A1c levels, follow the blood sugars. 8. Chronic kidney disease stage IV. Baseline creatinine around 2.5-2.8,currently with creatinine of 2.8. Will follow the labs. 9. History of hyperlipidemia, on statin. 10. History of atrial fibrillation: Rate controlled with Toprol-XL, on Coumadin. INR therapeutic. Follow PT/INR. 11. History of hypertension, on isosorbide dinitrate, metoprolol, hydralazine, lisinopril, and diuretics. We will monitor the blood pressure. Question of being on amlodipine, will monitor. 12. History of cerebrovascular accident: Speech seemed to be improved. PT and OT when stable. 13. Deep venous thrombosis prophylaxis: INR therapeutic. DISPOSITION: Closely monitor in the tele floor. Level 1 full code. Expect to discharge home and follow with family doctor. BRETTD
[2020-08-05] MEDS ORDERED: INSULIN GLARGINE SOLOSTAR 100 UNITS/ML 3 ML PEN SQ SCH (09:00)
[2020-08-05] MEDS ORDERED: INSULIN GLARGINE SOLOSTAR 100 UNITS/ML 3 ML PEN SQ ONE ×2 (09:00→09:30)
--- NOTE | 2020-08-05 09:21 | Pharmacy Report ---
Pharmacy Glycemic Short Note 2 - Date of Service August 05, 2020 - Glycemic Short BSG Results (Last 24 hours): 08/05/20 08/05/20 08/05/20 01:20 05:45 07:42 Glucose 336 H* 314 H* POC Glucose 301 H* OUTPATIENT ANTIDIABETIC REGIMEN: * Lantus 25 units bid * Humalog 5 units with breakfast, 25 units with lunch and dinner and 15 units for high carb snack * a1c: 9% 02/05/20 * A1c pending for 08/05/20 ASSESSMENT: * 65yo T2DM male known to pharmacy from previous admissions/glycemic consults. * Typically, patient requires much less insulin for admission as compared to outpatient dosing. * No steroids ordered for covid+ * Will utilize similar dosing per previous admissions and titrate based on BSG trends. PLAN FOR INPATIENT GLYCEMIC CONTROL: * Basal insulin * Lantus 40 units SQ x 1 this AM for severe hyperglycemia/basal deficiency * Typically patient requires a large loading dose above and then reduced dosing afterwards. Will set a scale for tomorrow AM since previous admissions maintenance dose varies from 20-40 units based on his AM fasting BSG * BSG below 140 --> 20 units * BSG 140 -180 --> 30 units * BSG above 180 --> 40 units * Bolus insulin * NovoLog per scale ACHS or Q6hrs while NPO * Goal Range: Low 120 mg/dL - High 150 mg/dL * Correction Factor: 20 mg/dL/unit * Nutritional / Prandial insulin per carb ratio of 1 unit per 6 grams CHO consumed PLAN FOR DISCHARGE: * TBD based on A1c (pending). * Outpatient basal insulin recently changed from Lantus 70 units daily to Lantus 25 units SQ BID.
[2020-08-05] MEDS ORDERED: DOXYCYCLINE HYCLATE 100 MG CAP PO SCH (10:00)
[2020-08-05 10:58] LABS: Appearance Urine Clear (Clear); Bacteria Urine Automated Negative (Negative); Bilirubin Urine Negative (Negative); Blood Urine Negative (Negative); Color Urine Yellow; Glucose Urine UA 3+ (Negative); Ketones Urine Negative (Negative); Leukocyte Esterase Urine Negative (Negative); Nitrite Urine Negative (Negative); Protein Urine 3+ (Negative); Urobilinogen Urine Negative (Negative); WBC Urine Automated 0 /hpf (0-5); pH Urine 5.5 (4.5-7.5)
--- NOTE | 2020-08-05 11:40 | Hospitalist Progress Note ---
Date of Service August 05, 2020 Assessment & Plan Admission and Anticipated Discharge Date Admission Date: August 05, 2020 Results & Data Results & Data ([facility]) Vital Signs (Past 12 Hours) Vital Signs Temp Pulse Pulse Pulse Resp BP BP 08/05/20 08:05 37.4 C 87 22 130/82 08/05/20 08:00 95 H 08/05/20 07:51 89 18 08/05/20 06:01 36.6 C 96 H 22 162/86 H 08/05/20 05:15 103 H 17 08/05/20 05:00 90 23 137/91 08/05/20 04:45 99 H 24 08/05/20 04:30 97 H 154/101 H 08/05/20 04:15 92 H 25 H 08/05/20 04:00 99 H 19 153/99 H 08/05/20 03:45 100 H 22 08/05/20 03:30 96 H 21 164/104 H 08/05/20 03:15 90 13 08/05/20 03:00 94 H 19 152/110 H 08/05/20 02:45 103 H 08/05/20 02:30 103 H 9 L 154/104 H 08/05/20 02:15 95 H 25 H 08/05/20 02:00 96 H 15 156/108 H 08/05/20 01:51 112 H 113 H 18 156/108 H 08/05/20 01:45 105 H 23 08/05/20 01:37 103 H 17 153/102 H 08/05/20 00:40 37.0 C 114 H 20 152/106 H Pulse Ox 08/05/20 08:05 97 08/05/20 08:00 08/05/20 07:51 96 08/05/20 06:01 95 08/05/20 05:15 95 08/05/20 05:00 96 08/05/20 04:45 91 08/05/20 04:30 96 08/05/20 04:15 94 08/05/20 04:00 95 08/05/20 03:45 96 08/05/20 03:30 96 08/05/20 03:15 95 08/05/20 03:00 94 08/05/20 02:45 96 08/05/20 02:30 95 08/05/20 02:15 95 08/05/20 02:00 95 08/05/20 01:51 96 08/05/20 01:45 95 08/05/20 01:37 93 08/05/20 00:40 92
[2020-08-05] MEDS ORDERED: PROMETHAZINE HCL 12.5 MG in SODIUM CHLORIDE 0.9% 50 ML IV PRN (13:02)
--- NOTE | 2020-08-05 13:08 | Electrocardiogram Report ---
Test Reason : Blood Pressure : / mmHG Vent. Rate : 096 BPM Atrial Rate : 091 BPM P-R Int : 000 ms QRS Dur : 168 ms QT Int : 426 ms P-R-T Axes : 000 -41 120 degrees QTc Int : 538 ms Suspect unspecified pacemaker failure ventricular pacing with PVCs Left axis deviation Abnormal ECG Confirmed by Minor Parry ([id number]) on 08/05/2020 1:08:26 PM Referred By: REFERRED SELF Confirmed By:Bruno Parry
--- NOTE | 2020-08-05 13:14 | Cardiology Consultation ---
Date of Consultation August 05, 2020 Assessment & Plan (1) COVID-19: Patient is a complex 65-year-old male as outlined who presents now with signs and symptoms of acute Covid infection with loss of sense of smell and taste cough and mild breathlessness. No hypoxia or pneumonia on chest x-ray to date. During course of evaluation to short runs of nonsustained ventricular tachycardia observed on telemetry. No signs of acute coronary syndrome with chronic troponin elevation present. No signs of heart failure on examination on x-ray Plan continue usual medications with slightly upward titration of beta-effie. We will follow closely for signs of respiratory decline. Pacer defibrillator device will be formally interrogated in a.m. (2) Elevated troponin: Chronic troponin elevation present (3) Chronic atrial fibrillation: Rate controlled with biventricular pacing. Patient appropriately anticoagulated. Past history of thromboembolic episode on withdrawal of anticoagulation would maintain (4) CKD (chronic kidney disease) stage 4, GFR 15-29 ml/min: (5) Aortic stenosis: History of Present Illness Reason for Consultation: Nonsustained ventricular tachycardia, acute Covid infection Requesting Physician: Dr. Kay Attending Physician: Bell Kay MD History of Present Illness Patient is a 65-year-old male very complex underlying history as below per records and review with patient 1. Nonischemic cardiomyopathy with moderately severe LV dysfunction 2. Compensated class III congestive heart failure, systolic and diastolic. 3. Mild to moderate atherosclerotic coronary disease without obstruction by last cardiac catheterization June 2016 with chronic troponin elevation 4. Calcific aortic valve disease with moderate to borderline severe aortic s tenosis. 5. Biventricular pacer defibrillator implantation June 2017. [employer] [id number] 6. Chronic, severe renal insufficiency stage 4, very labile hypertension with past hypertensive urgency 7. Chronic anemia. 8. Past paroxysmal atrial fibrillation now chronic long-term persistent since August 2019 9. Chronic cholelithiasis with hospitalization for Klebsiella cholangitis/pancreatitis 10/21/2019, blood culture positive 10. Enterobacter sepsis January 2020 11. Left middle cerebral artery distribution CVA while off anticoagulation for endoscopy procedure November 2019 12. TIA April 2020 Patient presents this admission with signs and symptoms of acute Covid infection with loss of smell and taste after multiple known Covid exposure. He notes 1 to 2 days history of increasing cough and mild shortness of breath. One episode of chest tightness. He presented to the ER due to complaints for further evaluation patient has tested positive on presentation. During initial evaluation emergency room he was noted to have 2 runs of nonsustained ventricular tachycardia. Patient asymptomatic. He currently denies worsening shortness of breath cough, chest pains, tachypalpitations, syncope, near syncope. No fevers or chills. No bleeding difficulties. No worsening edema with weight stable. Patient has received Covid vaccination Allergies Allergy/AdvReac Type Severity Reaction Status Date / Time No Known Allergies Allergy Verified 08/05/20 02:39 Home Medications Medication Instructions Recorded Confirmed Type aspirin 81 mg PO QAM 02/05/18 08/05/20 History cholecalciferol (vitamin D3) 2,000 unit PO QAM 02/05/18 08/05/20 History [Vitamin D3] isosorbide dinitrate 20 mg PO TIDM 02/05/18 08/05/20 History metoprolol succinate [Toprol XL] 100 mg PO QAM 02/05/18 08/05/20 History pantoprazole [Protonix] 40 mg PO QAM 02/05/18 08/05/20 History rosuvastatin [Crestor] 40 mg PO HS 02/05/18 08/05/20 History gabapentin 100 mg PO TIDM 05/14/18 08/05/20 History albuterol sulfate [ProAir HFA] 2 puff INHALATION Q4H PRN 08/01/18 08/05/20 History fluticasone propionate [Flonase 2 spray INTRANASAL DAILY PRN 08/01/18 08/05/20 History Allergy Relief] ipratropium-albuterol 3 ml INHALATION QID PRN 08/01/18 08/05/20 History Vitron-C 1 tab PO BID 06/05/19 08/05/20 History insulin lispro [Humalog KwikPen See Rx Instructions .ROUTE .COMPLEX 06/05/19 08/05/20 History Insulin] hydralazine 75 mg PO TID 12/18/19 08/05/20 History Breo Ellipta 1 inh INHALATION QAM 03/02/20 08/05/20 History torsemide 10 mg PO QAM 03/02/20 08/05/20 History Lantus Solostar U-100 Insulin 25 unit SUBCUT BID 04/23/20 08/05/20 History warfarin 10 mg PO 3XWK 04/23/20 08/05/20 History lisinopril [Zestril] 10 mg PO DAILY #60 tab 04/25/20 08/05/20 Rx atorvastatin 80 mg PO DAILY 08/05/20 08/05/20 History baclofen 10 mg PO HS 08/05/20 08/05/20 History warfarin 5 mg PO 4XWK 08/05/20 08/05/20 History Patient History Medical History Acute cerebrovascular accident Aortic stenosis Severe aortic stenosis vs pseudo aortic stenosis due to low output per cardio note from 12/2019 ECHO Asthma Atrial fibrillation on chronic anticoagulation CAD (coronary artery disease) "nonobstructive" Chronic anemia Chronic kidney disease STAGE 4-F/U DR HERNANDEZ Chronic systolic (congestive) heart failure EF around 30-34% COPD (chronic obstructive pulmonary disease) Diabetic neuropathy DM type 2 (diabetes mellitus, type 2) Dyslipidemia GERD (gastroesophageal reflux disease) History of multiple pulmonary nodules Hypertension LBBB (left bundle branch block) Nocturnal hypoxia on 2L NC O2 HS Nonischemic cardiomyopathy S/p BIV AICD in place Pulmonary HTN PVD (peripheral vascular disease) Sleep apnea BIPAP-OXYGEN 2L/MIN HS Stroke 12/18/19-[facility] ADMISSION-RESIDUAL EFFECTS SPECCH DIFFICULTY-SHORT TERM MEMORY Supratherapeutic INR Thrombocytopenia F/U PCP Surgical History H/O cardiac catheterization Non nonobstructive CAD on 2016 cardiac cath H/O total adrenalectomy LEFT 25 YRS AGO History of colonoscopy History of esophagogastroduodenoscopy (EGD) Presence of combination internal cardiac defibrillator (ICD) and pacemaker Family History Sister Diabetes Brother Diabetes Other Hypertension Lung cancer Social History Smoking Status: Unknown if ever smoked Tobacco Type: Smokeless Tobacco (Dip or Chew) Second Hand Exposure: No; Do You Dip or Chew Tobacco: Yes; Tobacco Cessation Education Requested by Patient: No Hx Alcohol Use: No Hx Substance Use: No Preferred Language: Lao Communication Ability: Effective Visual Impairment: Limited Bottle Label Inspector Required: No Beliefs That Will Affect Care: None marital status: Current Living Situation: Spouse current occupational status: retired 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 Other Information That Helps Us Care for You: No Feels Safe at Home: Yes Assistive Devices: CPAP Assistive Devices Comment: Glasses and CPAP Review of Systems Review of Systems: All systems reviewed & are unremarkable except as noted in HPI & below Physical Exam Constitutional: WD/WN, vitals as above no acute distress Eyes: PERRL, conjunctivae normal, anicteric sclerae ENMT: external ear and nose normal, oropharynx normal Neck: trachea midline, no thyromegaly Heavily bearded Respiratory: normal respiratory effort, lungs clear to auscultation Cardiovascular: Rate/Rhythm: regular rate and regular rhythm (Paced with occasional ventricular ectopic beat) Heart Sounds: normal S1, normal S2 and + murmur (Grade 2 or 6 systolic ejection murmur no diastolic murmur); no gallop Vessels: normal carotid upstroke and radial pulses present; no JVD and no carotid bruit Extremities: no edema Chest (Breasts): Chest: + pacemaker (Pacer defibrillator without irritation or tenderness) Gastrointestinal (Abdomen): normal bowel sounds, soft, nontender, no hepatosplenomegaly Musculoskeletal: no cyanosis or clubbing, extremities motor strength 5/5 Skin: no rashes, warm and dry Neurologic: PERRL, EOMI, accommodation nl, no face palsy, no dysarthria Psychiatric: A+Ox3, euthymic affect Results & Data ([facility]) Vital Signs (Past 12 Hours) Vital Signs Temp Pulse Pulse Pulse Resp BP BP 08/05/20 11:43 37.0 C 84 22 158/79 H 08/05/20 08:05 37.4 C 87 22 130/82 08/05/20 08:00 95 H 08/05/20 07:51 89 18 08/05/20 06:01 36.6 C 96 H 22 162/86 H 08/05/20 05:15 103 H 17 08/05/20 05:00 90 23 137/91 08/05/20 04:45 99 H 24 08/05/20 04:30 97 H 154/101 H 08/05/20 04:15 92 H 25 H 08/05/20 04:00 99 H 19 153/99 H 08/05/20 03:45 100 H 22 08/05/20 03:30 96 H 21 164/104 H 08/05/20 03:15 90 13 08/05/20 03:00 94 H 19 152/110 H 08/05/20 02:45 103 H 08/05/20 02:30 103 H 9 L 154/104 H 08/05/20 02:15 95 H 25 H 08/05/20 02:00 96 H 15 156/108 H 08/05/20 01:51 112 H 113 H 18 156/108 H 08/05/20 01:45 105 H 23 08/05/20 01:37 103 H 17 153/102 H Pulse Ox 08/05/20 11:43 94 08/05/20 08:05 97 08/05/20 08:00 08/05/20 07:51 96 08/05/20 06:01 95 08/05/20 05:15 95 08/05/20 05:00 96 08/05/20 04:45 91 08/05/20 04:30 96 08/05/20 04:15 94 08/05/20 04:00 95 08/05/20 03:45 96 08/05/20 03:30 96 08/05/20 03:15 95 08/05/20 03:00 94 08/05/20 02:45 96 08/05/20 02:30 95 08/05/20 02:15 95 08/05/20 02:00 95 08/05/20 01:51 96 08/05/20 01:45 95 08/05/20 01:37 93 Diagnostic Findings Echocardiogram 01/17/2020 The rhythm during the transthoracic echo examination was atrial fibrillation with controlled ventriculr response. The qualitative LV ejection fraction is 30-34% (moderately reduced). The LV wall thickness is severely increased (concentric). The septal motion is abnormal consistent with intrventricular conduction delay. The remaining left ventricular wall segments are moderately hypokinetic. The right ventricular systolic function is reduced as assessed by tricuspid epi ular plane systolic excursion (TAPSE< 1.7 cm). The left atrium is severely enlarged (>48 ml/m^2,). The aortic valve is severely calcified. The aortic valve opening is severely reduced. Severe aortic valve stenosis is present. Pseudo-aortic stenosis must be considered in the setting of reduced ejection fraction. Mild aortic valve regurgitation is present. Mild mitral regurgitation is present. Mild tricuspid regurgitation is present. The proximal ascending thoracic aorta is mildly enlarged. There is no evidence of pulmonary hypertension (1) Aortic stenosis Cardiac valve disease etiology: nonrheumatic Qualified Code(s): I35.0 - Nonrheumatic aortic (valve) stenosis
--- NOTE | 2020-08-05 14:43 | Communication Note ---
Date of Service: August 05, 2020 Patient seen at bedside, says that he is still feeling very " lousy" Appetite poor, still does not have sense of taste or smell returned, generalized body ache weakness [place] nauseous earlier no vomiting Shortness of breath has improved, no cough No fever or chills. Denies of any chest pain no chest discomfort. COVID-19 infection: Presented with mostly flulike symptoms, has recent exposure with Covid positive persons at work site To respiratory therapy of lower hypoxia Chest x-ray does not show any evidence of infiltrate Patient does not need any treatment for active COVID-19 disease: Remdesivir and dexamethasone avoided Continue supportive care Patient's son updated over phone Bell Kay MD
[2020-08-05] MEDS: WARFARIN SOD 5 MG TAB PO SCH (16:26)
[2020-08-05] MEDS: ROSUVASTATIN CALCIUM 20 MG TAB PO SCH (20:55)
[2020-08-05] MEDS: BACLOFEN 10 MG TAB PO SCH (20:56)
[2020-08-05] MEDS ORDERED: METOPROLOL SUCC 50MG EXT REL TAB PO SCH (21:00)
[2020-08-06] MEDS: IPRATROPIUM BROMIDE NEB SOLN 0.02% 2.5 ML VIAL INH SCH (00:03)
[2020-08-06] MEDS: LEVALBUTEROL 1.25MG/0.5ML NEB INH SCH (00:03)
[2020-08-06] MEDS: INSULIN ASPART 100 UNITS/ML 3 ML PEN SC SCH ×6 (00:17→20:49)
[2020-08-06] MEDS ORDERED: METOPROLOL TARTRATE 1 MG/ML VIAL IV STA ×2 (04:34→04:35)
--- NOTE | 2020-08-06 04:50 | Hospitalist Progress Note ---
Date of Service August 06, 2020 Assessment & Plan Admission and Anticipated Discharge Date Admission Date: August 05, 2020 Subjective Was notified that Patient having several 9-11 beats of v tach since 3:45am and Blood pressure elevated. Asymptomatic. Will give a dose of iv lopressor 5mg. Will Follow am labs and troponin. Results & Data Results & Data ([facility]) Vital Signs (Past 12 Hours) Vital Signs Temp Pulse Pulse Resp BP Pulse Ox Pulse Ox 08/06/20 04:18 178/107 H 08/06/20 03:36 38.7 C H 96 H 20 172/104 H 97 08/06/20 01:15 99 08/06/20 00:03 80 16 95 08/06/20 00:00 20 99 08/05/20 23:59 78 08/05/20 23:33 37.2 C 80 18 115/75 97 08/05/20 20:12 70 18 97 08/05/20 20:00 20 99 08/05/20 19:25 36.9 C 73 18 117/75 97
--- NOTE | 2020-08-06 04:51 | Hospitalist Progress Note ---
Date of Service August 06, 2020 Assessment & Plan Admission and Anticipated Discharge Date Admission Date: August 05, 2020 Subjective Also d/jane atc nebs for now and continue prn nebs. thanks Results & Data Results & Data ([facility]) Vital Signs (Past 12 Hours) Vital Signs Temp Pulse Pulse Resp BP Pulse Ox Pulse Ox 08/06/20 04:18 178/107 H 08/06/20 03:36 38.7 C H 96 H 20 172/104 H 97 08/06/20 01:15 99 08/06/20 00:03 80 16 95 08/06/20 00:00 20 99 08/05/20 23:59 78 08/05/20 23:33 37.2 C 80 18 115/75 97 08/05/20 20:12 70 18 97 08/05/20 20:00 20 99 08/05/20 19:25 36.9 C 73 18 117/75 97
[2020-08-06 05:27] LABS: BUN Creatinine Ratio 18.1 (10-20); Calcium 8.6 mg/dl (8.5-10.1); Creatinine Clr Calc Pharmacy 31.5 ml/min; Est GFR (African American) 25.2; Est GFR (Non-African American) 21.7; Magnesium 2.1 mg/dl (1.8-2.4); Potassium 4.2 mmol/L (3.5-5.1)
[2020-08-06 05:30] LABS: INR 2.7 (0.9-1.1); Prothrombin Time 25.6 Seconds (9.0-12.0)
[2020-08-06 06:02] LABS: Troponin I 0.057 ng/ml (0-0.045)
[2020-08-06 06:03] LABS: Estimated Average Glucose 272 mg/dl; Hemoglobin A1C 11.1 % (4.5-5.6)
[2020-08-06] MEDS: ASPIRIN 81 MG ECTAB PO SCH (08:10)
[2020-08-06] MEDS: PANTOprazole 40 MG TAB PO SCH (08:10)
[2020-08-06] MEDS: CHOLECALCIFEROL 1,000 UNITS 25 MCG TAB PO SCH (08:11)
[2020-08-06] MEDS: ISOSORBIDE DINITRATE 20 MG TAB PO SCH ×3 (08:11→16:45)
[2020-08-06] MEDS: lisinopril 10 MG TAB PO SCH (08:11)
[2020-08-06] MEDS: GABAPENTIN 100 MG CAP PO SCH ×3 (08:11→16:45)
[2020-08-06] MEDS: METOPROLOL SUCC 50MG EXT REL TAB PO SCH ×2 (08:11→20:08)
[2020-08-06] MEDS: hydrALAZINE HCL 25 MG TAB PO SCH ×3 (08:11→20:07)
[2020-08-06] MEDS: ASCORBIC ACID 500 MG TAB PO SCH (08:11)
[2020-08-06] MEDS: TORSEMIDE 10 MG TAB PO SCH (08:11)
[2020-08-06] MEDS: ATORVASTATIN 40 MG TAB PO SCH (08:12)
[2020-08-06] MEDS: FERROUS SULFATE 325 MG TAB PO SCH (08:12)
[2020-08-06] MEDS: FLUTICASONE/VILANTEROL 100/25MCG 14 PUFFS/INHALER INH SCH (08:12)
--- NOTE | 2020-08-06 08:32 | XRay Report ---
XR chest 1V portable CLINICAL HISTORY: covid SEPSIS. COMPARISON STUDY: 08/05/2020 FINDINGS: The heart remains enlarged. There is a left subclavian pacer/defibrillator present. There i s no failure. There are no pleural effusions. There is no definite parenchymal consolidation. Increas ed markings within the left midlung zone laterally again likely related to overlying soft tissue.[ IMPRESSION: 1. Persistent cardiomegaly 2. No evidence of focal pulmonary consolidation ACT 112: Negative or not required by law. Electronically signed by: Indra Aguilar M.D. 08/06/2020 8:30 AM
[2020-08-06] MEDS ORDERED: INSULIN GLARGINE SOLOSTAR 100 UNITS/ML 3 ML PEN SQ SCH ×2 (09:00)
--- NOTE | 2020-08-06 09:08 | Pharmacy Report ---
Pharmacy Glycemic Short Note 2 - Date of Service August 06, 2020 - Glycemic Short BSG Results (Last 24 hours): 08/05/20 08/05/20 08/05/20 09:55 11:40 16:46 Glucose POC Glucose 283 H 326 H* 305 H* 08/05/20 08/05/20 08/06/20 19:59 23:54 03:56 Glucose POC Glucose 278 H 269 H 260 H 08/06/20 08/06/20 04:53 07:46 Glucose 190 H POC Glucose 170 H OUTPATIENT ANTIDIABETIC REGIMEN: * Lantus 25 units bid * Humalog 5 units with breakfast, 25 units with lunch and dinner and 15 units for high carb snack * A1c: 11.1% (08/05/20) ASSESSMENT: 08/06 * BSGs yesterday elevated at 301, 326, 305, 278, and 269 mg/dL * Patient received 88 units of insulin (40 units of lantus, 44 units of prandial/correctional SC bolus, and 4 units of IV regular insulin) * Fasting BSG of 170 mg/dL this morning - will continue lantus 40 units daily * Lunch BSG of 378 mg/dL - > will give one-time IV insulin bolus and tighten carb ratio further 08/05 * 65yo T2DM male known to pharmacy from previous admissions/glycemic consults. * Typically, patient requires much less insulin for admission as compared to outpatient dosing. * No steroids ordered for covid+ * Will utilize similar dosing per previous admissions and titrate based on BSG trends. PLAN FOR INPATIENT GLYCEMIC CONTROL: * IV insulin * 8 units IV x 1 for lunch BSG of 378 mg/dL * Basal insulin - continue * Lantus 40 units SQ daily * Bolus insulin - tighten carb ratio * NovoLog per scale ACHS or Q6hrs while NPO * Goal Range: Low 120 mg/dL - High 150 mg/dL * Correction Factor: 15 mg/dL/unit * Nutritional / Prandial insulin per carb ratio of 1 unit per 4 grams CHO consumed PLAN FOR DISCHARGE: * HbA1c of 11.1% demonstrates poor outpatient glycemic control * Outpatient basal insulin recently changed from Lantus 70 units daily to Lantus 25 units SQ BID. * Will follow inpatient insulin needs and recommend changes as appropriate
--- NOTE | 2020-08-06 12:28 | Cardiology Progress Note ---
Date of Service August 06, 2020 Assessment & Plan (1) COVID-19: Patient is a complex 65-year-old male as outlined who presents now with signs and symptoms of acute Covid infection with loss of sense of smell and taste cough and mild breathlessness. No hypoxia or pneumonia on chest x-ray to date. During course of evaluation to short runs of nonsustained ventricular tachycardia observed on telemetry. No signs of acute coronary syndrome with chronic troponin elevation present. No signs of heart failure on examination on x-ray Chest x-ray without infiltrate or edema again today. Oxygenating well on room air Plan: Increase metoprolol succinate to 100 mg twice per day for heart rate con trol. Pacer defibrillator interrogation demonstrates a functioning appropriately. Due to GI upset complaints of abdominal distention we will temporarily hold vitamin C and ferrous sulfate. May need single additional dose of IV furosemide depending on clinical course though weights are stable and no other signs of fluid retention or edema (2) Elevated troponin: Chronic troponin elevation present (3) Chronic atrial fibrillation: Rate controlled with biventricular pacing. Patient appropriately anti coagulated. Past history of thromboembolic episode on withdrawal of anticoagulation would maintain (4) CKD (chronic kidney disease) stage 4, GFR 15-29 ml/min: (5) Aortic stenosis: Admission and Anticipated Discharge Date Admission Date: August 05, 2020 Subjective Patient was seen and examined, chart, medications, telemetry reviewed. Patient notes no worsening dyspnea or cardiac complaints. Does note abdominal bloating and fullness at times. Notes no fevers or chills. No dizziness or lightheadedness. Telemetry reveals short salvos of nonsustained ventricular tachycardia asymptomatic. Pacer defibrillator interrogation functioning appropriately OptiVol normal No bleeding issues melena or hematochezia . Appetite remains good. Smell and taste may be slightly better today Review of Systems Review of Systems: All systems reviewed & are unremarkable except as noted in HPI & below Physical Exam Constitutional: WD/WN, vitals as above + obese; no acute distress Eyes: PERRL, conjunctivae normal, anicteric sclerae ENMT: external ear and nose normal, oropharynx normal Neck: trachea midline, no thyromegaly Respiratory: normal respiratory effort, lungs clear to auscultation Cardiovascular: Rate/Rhythm: regular rate and regular rhythm (Paced with occasional ventricular ectopic beat) Heart Sounds: normal S1, normal S2 and + murmur (Grade 2 or 6 systolic ejection murmur no diastolic murmur); no gallop Palpation: normal PMI Vessels: normal carotid upstroke and radial pulses present; no JVD and no carotid bruit Extremities: no edema Chest (Breasts): Chest: + pacemaker (Pacer defibrillator without irritation or tenderness) Gastrointestinal (Abdomen): normal bowel sounds, soft, nontender, no hepatosplenomegaly Inspection/Auscultation: + abdomen distended (Mildly) Musculoskeletal: no cyanosis or clubbing, extremities motor strength 5/5 Skin: no rashes, warm and dry Neurologic: PERRL, EOMI, accommodation nl, no face palsy, no dysarthria Psychiatric: A+Ox3, euthymic affect Results & Data ([facility]) Vital Signs (Past 12 Hours) Vital Signs Temp Pulse Pulse Resp BP BP Pulse Ox 08/06/20 11:42 37.2 C 95 H 19 103/66 96 08/06/20 10:55 08/06/20 08:00 100 H 08/06/20 07:33 37.4 C 96 H 24 112/75 94 08/06/20 07:18 90 20 93 08/06/20 06:51 37.6 C H 08/06/20 06:16 38.6 C H 113/67 08/06/20 06:10 08/06/20 05:09 97 H 178/107 H 08/06/20 04:18 178/107 H 08/06/20 04:00 22 99 08/06/20 03:36 38.7 C H 96 H 20 172/104 H 97 08/06/20 01:15 Pulse Ox Pulse Ox 08/06/20 11:42 08/06/20 10:55 95 08/06/20 08:00 08/06/20 07:33 08/06/20 07:18 08/06/20 06:51 08/06/20 06:16 08/06/20 06:10 96 08/06/20 05:09 08/06/20 04:18 08/06/20 04:00 08/06/20 03:36 08/06/20 01:15 99 Laboratory Results Laboratory Results - last 24 hr 08/05/20 08/05/20 08/05/20 07:42 13:00 13:19 PT INR Sodium Potassium Chloride Carbon Dioxide Anion Gap BUN Creatinine Est Cr Clr Drug Dosing Est GFR ( Amer) Est GFR (Non-Af Amer) BUN/Creatinine Ratio Glucose POC Glucose Estimat Average Glucose 272 Hemoglobin A1c 11.1 H Calcium Phosphorus Magnesium Troponin I 0.074 H* Procalcitonin 0.15 08/05/20 08/05/20 08/05/20 16:46 19:59 23:54 PT INR Sodium Potassium Chloride Carbon Dioxide Anion Gap BUN Creatinine Est Cr Clr Drug Dosing Est GFR ( Amer) Est GFR (Non-Af Amer) BUN/Creatinine Ratio Glucose POC Glucose 305 H* 278 H 269 H Estimat Average Glucose Hemoglobin A1c Calcium Phosphorus Magnesium Troponin I Procalcitonin 08/06/20 08/06/20 08/06/20 03:56 04:53 04:53 PT 25.6 H INR 2.7 H Sodium 137 Potassium 4.2 Chloride 105 Carbon Dioxide 24 Anion Gap 8.0 BUN 52 H Creatinine 2.88 H Est Cr Clr Drug Dosing 31.5 Est GFR ( Amer) 25.2 Est GFR (Non-Af Amer) 21.7 BUN/Creatinine Ratio 18.1 Glucose 190 H POC Glucose 260 H Estimat Average Glucose Hemoglobin A1c Calcium 8.6 Phosphorus 3.0 Magnesium 2.1 Troponin I 0.057 H* Procalcitonin 08/06/20 07:46 PT INR Sodium Potassium Chloride Carbon Dioxide Anion Gap BUN Creatinine Est Cr Clr Drug Dosing Est GFR ( Amer) Est GFR (Non-Af Amer) BUN/Creatinine Ratio Glucose POC Glucose 170 H Estimat Average Glucose Hemoglobin A1c Calcium Phosphorus Magnesium Troponin I Procalcitonin (1) Aortic stenosis Cardiac valve disease etiology: nonrheumatic Qualified Code(s): I35.0 - Nonrh eumatic aortic (valve) stenosis
[2020-08-06] MEDS ORDERED: INSULIN HUMAN REGULAR PER UNIT 8 UNITS in SYRINGE 7.92 ML IV ONE (12:30)
--- NOTE | 2020-08-06 15:03 | Hospitalist Progress Note ---
Date of Service August 06, 2020 Assessment & Plan (1) COVID-19: Presented with generalized weakness nausea vomiting, diarrhea COVID-19 test positive, No cough or hypoxia, chest x-ray shows no evidence of infiltrate GI symptoms has improved with supportive care Nonsustained V. tach: Noted on telemetry, patient remains asymptomatic Patient input from cardiology, metoprolol dose increased to 100 mg twice daily Continue to monitor in telemetry Admission and Anticipated Discharge Date Admission Date: August 05, 2020 Subjective Visit for COVID-19 infection/shortness of breath/ventricular tachycardia Patient reports today feeling much better, sense of taste and smell has returned, no nausea, no abdominal pain No diarrhea or loose stool, Does not have any cough or shortness of breath no dyspnea on exertion Nonsustained ventricular tachycardia noted earlier, patient has no symptoms of chest pain palpitation or dyspnea Review of Systems Review of Systems: All systems reviewed & are unremarkable except as noted in Subjective Physical Exam 2 Physical Exam: Physical exam: General: No acute distress, alert awake oriented x3 HEENT: PERRLA, EOMI, Heart: Regular S1-S2, no carotid bruit, no JVD, no lower extremity edema Lungs: Clear to auscultate, no wheeze or rales Abdomen: Soft nontender, no organomegaly Extremity: No cyanosis, no deformity, normal strength 5 out of 5 with upper and lower Neuro: No focal neurological deficit normal speech, normal visual field, Motor strength : normal both upper and lower extremity, sensation intact Psych: Alert awake oriented x3, normal affect Results & Data Results & Data ([facility]) Vital Signs (Past 12 Hours) Vital Signs Temp Pulse Pulse Resp BP BP Pulse Ox 08/06/20 15:00 36.9 C 78 19 104/55 L 98 08/06/20 12:00 20 08/06/20 11:42 37.2 C 95 H 19 103/66 96 08/06/20 10:55 08/06/20 08:00 100 H 08/06/20 07:33 37.4 C 96 H 24 112/75 94 08/06/20 07:18 90 20 93 08/06/20 06:51 37.6 C H 08/06/20 06:16 38.6 C H 113/67 08/06/20 06:10 08/06/20 05:09 97 H 178/107 H 08/06/20 04:18 178/107 H 08/06/20 04:00 22 99 08/06/20 03:36 38.7 C H 96 H 20 172/104 H 97 Pulse Ox Pulse Ox 08/06/20 15:00 08/06/20 12:00 08/06/20 11:42 08/06/20 10:55 95 08/06/20 08:00 08/06/20 07:33 08/06/20 07:18 08/06/20 06:51 08/06/20 06:16 08/06/20 06:10 96 08/06/20 05:09 08/06/20 04:18 08/06/20 04:00 08/06/20 03:36
[2020-08-06] MEDS: WARFARIN SOD 10 MG TAB PO SCH (16:44)
--- NOTE | 2020-08-06 17:35 | Electrocardiogram Report ---
Test Reason : Blood Pressure : / mmHG Vent. Rate : 093 BPM Atrial Rate : 085 BPM P-R Int : 000 ms QRS Dur : 188 ms QT Int : 464 ms P-R-T Axes : 000 178 -03 degrees QTc Int : 576 ms Ventricular-paced rhythm Abnormal ECG Confirmed by Minor Parry ([id number] on 08/06/2020 5:34:26 PM Referred By: REFERRED SELF Confirmed By:Bruno Parry
[2020-08-06] MEDS: BACLOFEN 10 MG TAB PO SCH (20:07)
[2020-08-06] MEDS: ROSUVASTATIN CALCIUM 20 MG TAB PO SCH (20:07)
[2020-08-07] MEDS: INSULIN ASPART 100 UNITS/ML 3 ML PEN SC SCH ×4 (08:00→20:55)
[2020-08-07 08:16] LABS: INR 3.4 (0.9-1.1); Prothrombin Time 31.7 Seconds (9.0-12.0)
[2020-08-07 08:39] LABS: BUN Creatinine Ratio 16.8 (10-20); Calcium 9.2 mg/dl (8.5-10.1); Creatinine Clr Calc Pharmacy 25.6 ml/min; Est GFR (African American) 19.4; Est GFR (Non-African American) 16.7; Magnesium 2.3 mg/dl (1.8-2.4); Potassium 3.8 mmol/L (3.5-5.1)
[2020-08-07 08:40] LABS: Phosphorus 3.4 mg/dl (2.5-4.9)
[2020-08-07] MEDS: PANTOprazole 40 MG TAB PO SCH (09:17)
[2020-08-07] MEDS: ISOSORBIDE DINITRATE 20 MG TAB PO SCH ×3 (09:17→18:07)
[2020-08-07] MEDS: hydrALAZINE HCL 25 MG TAB PO SCH ×2 (09:17→14:31)
[2020-08-07] MEDS: TORSEMIDE 10 MG TAB PO SCH (09:17)
[2020-08-07] MEDS: CHOLECALCIFEROL 1,000 UNITS 25 MCG TAB PO SCH (09:18)
[2020-08-07] MEDS: ATORVASTATIN 40 MG TAB PO SCH (09:18)
[2020-08-07] MEDS: lisinopril 10 MG TAB PO SCH (09:18)
[2020-08-07] MEDS: ASPIRIN 81 MG ECTAB PO SCH (09:18)
[2020-08-07] MEDS: GABAPENTIN 100 MG CAP PO SCH ×3 (09:19→18:11)
[2020-08-07] MEDS: METOPROLOL SUCC 50MG EXT REL TAB PO SCH ×2 (09:19→21:02)
[2020-08-07] MEDS: FLUTICASONE/VILANTEROL 100/25MCG 14 PUFFS/INHALER INH SCH (09:19)
[2020-08-07] MEDS: INSULIN GLARGINE SOLOSTAR 100 UNITS/ML 3 ML PEN SQ SCH (09:31)
--- NOTE | 2020-08-07 14:23 | Electrocardiogram Report ---
Test Reason : Blood Pressure : / mmHG Vent. Rate : 089 BPM Atrial Rate : 096 BPM P-R Int : 000 ms QRS Dur : 202 ms QT Int : 496 ms P-R-T Axes : 000 178 -09 degrees QTc Int : 603 ms Ventricular-paced rhythm with fusion beats Abnormal ECG When compared with ECG of 06-AUG-2020 05:36, Vent. rate has decreased BY 4 BPM Confirmed by Minor Parry ([id number]) on 08/07/2020 2:23:33 PM Referred By: REFERRED SELF Confirmed By:Bruno Parry
--- NOTE | 2020-08-07 14:30 | Cardiology Progress Note ---
Date of Service August 07, 2020 Assessment & Plan (1) COVID-19: Patient is a complex 65-year-old male as outlined who presents now with signs and symptoms of acute Covid infection with loss of sense of smell and taste cough and mild breathlessness. No hypoxia or pneumonia on chest x-ray to date. During course of evaluation to short runs of nonsustained ventricular tachycardia observed on telemetry. No signs of acute coronary syndrome with chronic troponin elevation present. No signs of heart failure on examination on x-ray Patient stable currently but creatinine worsening. Blood pressure trending lower. No signs of respiratory compromise. Lisinopril received this morning but now on hold. Torsemide on hold Plan: Given relative low blood pressure will reduce hydralazine to 50 3 times daily with following blood pressures closely. Continue current dosing of metoprolol succinate for rate control and arrhythmia control. Biventricular pacing still present (2) Elevated troponin: Chronic troponin elevation present (3) Chronic atrial fibrillation: Rate controlled with biventricular pacing. Patient appropriately anticoagulated. Past history of thromboembolic episode on withdrawal of anticoagulation would maintain (4) CKD (chronic kidney disease) stage 4, GFR 15-29 ml/min: (5) Aortic stenosis: Admission and Anticipated Discharge Date Admission Date: August 05, 2020 Subjective Patient was seen and examined, chart, medications, telemetry reviewed. Patient denies cough shortness of breath or worsening dyspnea. Has been wearing CPAP as per usual at night and while sleeping in the daytime. No fevers chills No acute complaints but blood pressure trending lower. Creatinine increased No further arrhythmias on telemetry Review of Systems Review of Systems: All systems reviewed & are unremarkable except as noted in HPI & below Physical Exam Constitutional: WD/WN, vitals as above + obese; no acute distress Eyes: PERRL, conjunctivae normal, anicteric sclerae ENMT: external ear and nose normal, oropharynx normal Neck: trachea midline, no thyromegaly Respiratory: normal respiratory effort, lungs clear to auscultation Cardiovascular: Rate/Rhythm: regular rate and regular rhythm (Paced with occasional ventricular ectopic beat) Heart Sounds: normal S1, normal S2 and + murmur (Grade 2 or 6 systolic ejection murmur no diastolic murmur); no gallop Palpation: normal PMI Vessels: normal carotid upstroke and radial pulses present; no JVD and no carotid bruit Extremities: no edema Chest (Breasts): Chest: + pacemaker (Pacer defibrillator without irritation or tenderness) Gastrointestinal (Abdomen): normal bowel sounds, soft, nontender, no hepatosplenomegaly Inspection/Auscultation: + abdomen distended (Mildly) Musculoskeletal: no cyanosis or clubbing, extremities motor strength 5/5 Skin: no rashes, warm and dry Neurologic: PERRL, EOMI, accommodation nl, no face palsy, no dysarthria Psychiatric: A+Ox3, euthymic affect Results & Data ([place]) Vital Signs (Past 12 Hours) Vital Signs Temp Pulse Pulse Resp BP Pulse Ox 08/07/20 11:46 36.4 C L 84 22 93/57 L 93 08/07/20 08:00 82 08/07/20 07:40 37.0 C 79 20 112/72 90 08/07/20 04:00 98 08/07/20 03:44 37.2 C 84 20 95/62 L 96 Laboratory Results Laboratory Results - last 24 hr 08/06/20 08/06/20 08/06/20 17:14 20:05 23:53 PT INR Sodium Potassium Chloride Carbon Dioxide Anion Gap BUN Creatinine Est Cr Clr Drug Dosing Est GFR ( Amer) Est GFR (Non-Af Amer) BUN/Creatinine Ratio Glucose POC Glucose 285 H 285 H 204 H Calcium Phosphorus Magnesium 08/07/20 08/07/20 08/07/20 07:40 07:40 07:42 PT 31.7 H INR 3.4 H Sodium 135 L Potassium 3.8 Chloride 104 Carbon Dioxide 22 Anion Gap 9.0 BUN 60 H Creatinine 3.58 H D Est Cr Clr Drug Dosing 25.6 Est GFR ( Amer) 19.4 Est GFR (Non-Af Amer) 16.7 BUN/Creatinine Ratio 16.8 Glucose 144 H POC Glucose 150 H Calcium 9.2 Phosphorus 3.4 Magnesium 2.3 08/07/20 11:50 PT INR Sodium Potassium Chloride Carbon Dioxide Anion Gap BUN Creatinine Est Cr Clr Drug Dosing Est GFR ( Amer) Est GFR (Non-Af Amer) BUN/Creatinine Ratio Glucose POC Glucose 260 H Calcium Phosphorus Magnesium (1) Aortic stenosis Cardiac valve disease etiology: nonrheumatic Qualified Code(s): I35.0 - Nonrheumatic aortic (valve) stenosis
--- NOTE | 2020-08-07 14:45 | Hospitalist Progress Note ---
Date of Service August 07, 2020 Assessment & Plan (1) COVID-19: Presented with generalized weakness nausea vomiting, diarrhea COVID-19 test positive, No cough or hypoxia, chest x-ray shows no evidence of infiltrate GI symptoms has improved with supportive care Alerting diet, no abdominal discomfort, no further episode of diarrhea Nonsustained V. tach: No further episode Appreciate input from cardiology, metoprolol dose increased to 100 mg twice daily Continue to monitor in telemetry Acute renal failure on CKD stage III: Creatinine mildly elevated possibly secondary to acute illness Episodes of hypotension noted after beta-effie dose increased Patient is encouraged to increase p.o. intake We will hold patient's diuretics torsemide /lisinopril Repeat lab in a.m. Episode of hypotension Patient denies of any dizzy spell or lightheadedness Beta-effie dose increased as above Hydralazine dose reduced to 50 mg 3 times daily (was 75 mg 3 times daily) Ordered for holding parameter for isosorbide Diuretics ordered to kept on hold for above Monitor in telemetry Biventricular heart failure status post AICD: Stable volume status, Diuretics will be kept on hold for 24 hours for acute renal failure Should be resumed in a.m. Generalized weakness fatigue Due to COVID-19 illness Order for PT OT CODE STATUS: Full code Disposition: Expected to be discharged home when medically stable Admission and Anticipated Discharge Date Admission Date: August 05, 2020 Subjective Patient was seen and examined, chart, medications, telemetry reviewed. Patient reports feeling better, no cough or shortness of breath, No GI issue no nausea vomiting or diarrhea, tolerating diet Still feels profoundly fatigued, generalized weakness No muscle aches or pain, no fever or chills Complaint of shortness of breath, orthopnea no chest pain No further episode of ventricular tachycardia, Patient denies of any dizzy spells lightheadedness, or chest heaviness Review of Systems Review of Systems: All systems reviewed & are unremarkable except as noted in Subjective Physical Exam Physical Exam: Physical exam: General: No acute distress, alert awake oriented x3 HEENT: PERRLA, EOMI, Heart: Regular S1-S2, no carotid bruit, no JVD, no lower extremity edema Lungs: Clear to auscultate, no wheeze or rales Abdomen: Soft nontender, no organomegaly Extremity: No cyanosis, no deformity, normal strength 5 out of 5 with upper and lower Neuro: No focal neurological deficit normal speech, normal visual field, Motor strength : normal both upper and lower extremity, sensation intact Psych: Alert awake oriented x3, normal affect Results & Data Results & Data ([facility]) Vital Signs (Past 12 Hours) Vital Signs Temp Pulse Pulse Resp BP Pulse Ox 08/07/20 11:46 36.4 C L 84 22 93/57 L 93 08/07/20 08:00 82 08/07/20 07:40 37.0 C 79 20 112/72 90 08/07/20 04:00 98 08/07/20 03:44 37.2 C 84 20 95/62 L 96
--- NOTE | 2020-08-07 14:56 | Pharmacy Report ---
Pharmacy Glycemic Short Note 2 - Date of Service August 07, 2020 - Glycemic Short BSG Results (Last 24 hours): 08/06/20 08/06/20 08/06/20 17:14 20:05 23:53 Glucose POC Glucose 285 H 285 H 204 H 08/07/20 08/07/20 08/07/20 07:40 07:42 11:50 Glucose 144 H POC Glucose 150 H 260 H OUTPATIENT ANTIDIABETIC REGIMEN: * Lantus 25 units bid * Humalog 5 units with breakfast, 25 units with lunch and dinner and 15 units for high carb snack * A1c: 11.1% (08/05/20) ASSESSMENT: 08/07: * Pt received total of 116 units of insulin yesterday: 40 units basal and 76 units bolus. * Fasting BSG today was 150 mg/dl. Lantus dose increased slightly. * From past admission data, patient's BSG typically goes low in the morning. Therefore, HS Novolog parameters were loosened. 08/06 * BSGs yesterday elevated at 301, 326, 305, 278, and 269 mg/dL * Patient received 88 units of insulin (40 units of lantus, 44 units of prandial/correctional SC bolus, and 4 units of IV regular insulin) * Fasting BSG of 170 mg/dL this morning - will continue lantus 40 units daily * Lunch BSG of 378 mg/dL - > will give one-time IV insulin bolus and tighten carb ratio further 08/05 * 65yo T2DM male known to pharmacy from previous admissions/glycemic consults. * Typically, patient requires much less insulin for admission as compared to outpatient dosing. * No steroids ordered for covid+ * Will utilize similar dosing per previous admissions and titrate based on BSG trends. PLAN FOR INPATIENT GLYCEMIC CONTROL: * Basal insulin - increased * Lantus 45 units SQ daily * Bolus insulin - loosened parameters at HS * NovoLog per scale ACHS or Q6hrs while NPO * Goal Range: Low 120 mg/dL - High 150 mg/dL * Correction Factor: 12 mg/dL/unit with breakfast, lunch and dinner and 40 mg/dl/unit at HS * Nutritional / Prandial insulin per carb ratio of 1 unit per 4 grams CHO consumed with breakfast, lunch and dinner and 1 unit per 13 gm CHO at HS PLAN FOR DISCHARGE: * HbA1c of 11.1% demonstrates poor outpatient glycemic control * Outpatient basal insulin recently changed from Lantus 70 units daily to Lantus 25 units SQ BID. * Will follow inpatient insulin needs and recommend changes as appropriate
[2020-08-07] MEDS ORDERED: SODIUM CHLORIDE 0.9% 500 ML IV SCH (17:30)
--- NOTE | 2020-08-07 18:37 | Communication Note ---
Date of Service: August 07, 2020 pt noted to be hypotensive SBP in 90's with feeling of dizzy spell and lightheadedness nursing reports pt sustained a fall after standing up noted some confusion stat CT head non contrast ordered keep bed alarm on , fall precaution d/w cardiology , ordered to keep PO hydralazine on hold ( dose was reduced earlier ) 500 ml NSS bolus monitor Acute renal failure on CKD stage 3-4 : possibly due to hypotension? ordered to hold diuretics : Torsemide/lisinopril nephrology consulted Bell Kay MD
--- NOTE | 2020-08-07 19:11 | CT Scan Report ---
HEAD CT NONCONTRAST CT DOSE: 1547.15 mGy.cm HISTORY: fall /confusion TECHNIQUE: Multiaxial CT images of the head were performed without the use of intravenous contrast. A utomated exposure control was utilized for this study. A dose lowering technique was utilized adheri ng to the principles of ALARA. Comparison: 04/24/2020. Findings: Mild mucosal thickening within the ethmoid air cells. The mastoid air cells are clear. The calvarium and skull base are intact. There is no mass, hematoma, midline shift, acute infarct. White matter hypodensity is nonspecific but suggestive of microvascular ischemic change. The ventricles and sulci are within normal limits. There is an old small left frontal lobe infarct. Impression: No significant change compared to the prior study. No acute intracranial abnormality. ACT 112: Negative or not required by law. Electronically signed by: Tremaine Blackmon M.D. 08/07/2020 7:10 PM
[2020-08-07] MEDS: WARFARIN SOD 5 MG TAB PO SCH (19:58)
[2020-08-07] MEDS ORDERED: hydrALAZINE TAB 50 MG TAB PO SCH (21:00)
[2020-08-07] MEDS: BACLOFEN 10 MG TAB PO SCH (21:02)
[2020-08-07] MEDS: ROSUVASTATIN CALCIUM 20 MG TAB PO SCH (21:02)
[2020-08-08] MEDS: GABAPENTIN 100 MG CAP PO SCH ×3 (07:39→16:38)
[2020-08-08 07:49] LABS: INR 3.5 (0.9-1.1); Prothrombin Time 31.8 Seconds (9.0-12.0)
[2020-08-08 08:00] LABS: BUN Creatinine Ratio 16.9 (10-20); Calcium 8.9 mg/dl (8.5-10.1); Creatinine Clr Calc Pharmacy 22.4 ml/min; Est GFR (African American) 16.6; Est GFR (Non-African American) 14.3; Potassium 4.1 mmol/L (3.5-5.1)
--- NOTE | 2020-08-08 08:41 | Nephrology Consultation ---
Date of Consultation August 08, 2020 Assessment & Plan (1) Acute renal failure superimposed on stage 4 chronic kidney disease: His renal function was at baseline when he presented. Has worsened in the past 36 hours likely due to a combination of factors including labile blood pressure, heart arrhythmias, Covid infection. Continue to hold VENKATA inhibitor and torsemide Daily basic metabolic panel Repeat urinalysis ordered with microscopy >> report of gross hematuria yesterday but urine w/o blood or change in chronic profile (proteinuria, glucosuria) No indication at this time for renal imaging Strict I's and O's very important for his care; low threshold for bladder scans Care coordinated w/ Dr Ames Present on Admission?: No (2) Chronic systolic (congestive) heart failure: No evidence of exacerbation at this time. Cardiology following. EF 30 to 35%. Torsemide on hold for now; continue to hold -Could use Lasix 40 mg IV for acute dyspnea prn Ordered less than 2 g daily sodium diet and 1.5 L fluid limit Team assistance appreciated with daily standing weights Present on Admission?: Yes (3) Labile blood pressure: Symptomatic and with a fall yesterday. No overt injury. Currently on obligate doubled dose of beta-blockade. multiple meds on hold as well. Continue current medications and observation as well as fall precautions Present on Admission?: Yes (4) COVID-19: Supportive care and monitoring for change in status Present on Admission?: Yes History of Present Illness Reason for Consultation: Acute on chronic renal failure Requesting Physician: Dr. Kay Attending Physician: Aj Ames MD History of Present Illness 65-year-old male whom I am asked to evaluate for acute on chronic renal insufficiency was admitted on August 05 with a positive Covid test and covid sx and shortness of breath about 10 days after his second Covid vaccination and with positive exposure history. 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 He has had several admissions here for labile blood pressures and dizziness, most recently 04/2020 for HTN crisis w/ stroke like sx and w/ enterobacter bacteremia fall 2019. He presented with generalized weakness, nausea vomiting and diarrhea. GI symptoms have improved with supportive care. Also ongoing loss of sense of sm ell and taste with cough and mild dyspnea. His creatinine on admission was 2.8, stable x24 hours, then up to 3.6 on August 07. it is 4.1 today. He had his ACEI and diuretic yesterday am; but acei, t orsemide are now on hold. BP meds have been adjusted down by cardiology in response to hypotension. So far no hypoxia or chest x-ray findings of effusions or pneumonia or heart failure. He has been having short runs of nonsustained ventricular tachycardia, for which cardiology is uptitrating beta-effie as indicated. He fell last evening; head CT negative; no injury found; he denies ongoing pain /soreness from this he tells me not feeling much better today >> struggles to find words; feels in a mental "fog;" tolerating po and no c/o diarrhea now; concerned about edema and ongoing sob, cough w/ rust tinged sputum ; states he voided bright red blood yesterday w/ no clot or other voiding sx Allergies Allergy/AdvReac Type Severity Reaction Status Date / Time No Known Allergies Allergy Verified 08/05/20 02:39 Home Medications Medication Instructions Recorded Confirmed Type aspirin 81 mg PO QAM 02/05/18 08/05/20 History cholecalciferol (vitamin D3) 2,000 unit PO QAM 02/05/18 08/05/20 History [Vitamin D3] isosorbide dinitrate 20 mg PO TIDM 02/05/18 08/05/20 History metoprolol succinate [Toprol XL] 100 mg PO QAM 02/05/18 08/05/20 History pantoprazole [Protonix] 40 mg PO QAM 02/05/18 08/05/20 History rosuvastatin [Crestor] 40 mg PO HS 02/05/18 08/05/20 History gabapentin 100 mg PO TIDM 05/14/18 08/05/20 History albuterol sulfate [ProAir HFA] 2 puff INHALATION Q4H PRN 08/01/18 08/05/20 History fluticasone propionate [Flonase 2 spray INTRANASAL DAILY PRN 08/01/18 08/05/20 History Allergy Relief] ipratropium-albuterol 3 ml INHALATION QID PRN 08/01/18 08/05/20 History Vitron-C 1 tab PO BID 06/05/19 08/05/20 History insulin lispro [Humalog KwikPen See Rx Instructions .ROUTE .COMPLEX 06/05/19 08/05/20 History Insulin] hydralazine 75 mg PO TID 12/18/19 08/05/20 History Breo Ellipta 1 inh INHALATION QAM 03/02/20 08/05/20 History torsemide 10 mg PO QAM 03/02/20 08/05/20 History Lantus Solostar U-100 Insulin 25 unit SUBCUT BID 04/23/20 08/05/20 History warfarin 10 mg PO 3XWK 04/23/20 08/05/20 History lisinopril [Zestril] 10 mg PO DAILY #60 tab 04/25/20 08/05/20 Rx atorvastatin 80 mg PO DAILY 08/05/20 08/05/20 History baclofen 10 mg PO HS 08/05/20 08/05/20 History warfarin 5 mg PO 4XWK 08/05/20 08/05/20 History Patient History Medical History Acute cerebrovascular accident Aortic stenosis Severe aortic stenosis vs pseudo aortic stenosis due to low output per cardio note from 12/2019 ECHO Asthma Atrial fibrillation on chronic anticoagulation CAD (coronary artery disease) "nonobstructive" Chronic anemia Chronic kidney disease STAGE 4-F/U DR HERNANDEZ Chronic systolic (congestive) heart failure EF around 30-34% COPD (chronic obstructive pulmonary disease) Diabetic neuropathy DM type 2 (diabetes mellitus, type 2) Dyslipidemia GERD (gastroesophageal reflux disease) History of multiple pulmonary nodules Hypertension LBBB (left bundle branch block) Nocturnal hypoxia on 2L NC O2 HS Nonischemic cardiomyopathy S/p BIV AICD in place Pulmonary HTN PVD (peripheral vascular disease) Sleep apnea BIPAP-OXYGEN 2L/MIN HS Stroke 12/18/19-[facility] ADMISSION-RESIDUAL EFFECTS SPECCH DIFFICULTY-SHORT TERM MEMORY Supratherapeutic INR Thrombocytopenia F/U PCP Surgical History H/O cardiac catheterization Non nonobstructive CAD on 2017 cardiac cath H/O total adrenalectomy LEFT 25 YRS AGO History of colonoscopy History of esophagogastroduodenoscopy (EGD) Presence of combination internal cardiac defibrillator (ICD) and pacemaker Family History Sister Diabetes Brother Diabetes Other Hypertension Lung cancer Social History Smoking Status: Unknown if ever smoked Tobacco Type: Smokeless Tobacco (Dip or Chew) Second Hand Exposure: No; Do You Dip or Chew Tobacco: Yes; Tobacco Cessation Education Requested by Patient: No Hx Alcohol Use: No Hx Substance Use: No Preferred Language: Lebanese Communication Ability: Effective Visual Impairment: [employer] Analyst Required: No Beliefs That Will Affect Care: None marital status: Current Living Situation: Spouse current occupational status: retired 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 Other Information That Helps Us Care for You: No Feels Safe at Home: Yes Assistive Devices: None Assistive Devices Comment: Glasses and CPAP Review of Systems Review of Systems: All systems reviewed & are unremarkable except as noted in HPI & below Physical Exam Constitutional: well developed, well nourished, + obese, cooperative and comfortable; no acute distress sitting in chair on RA Eyes: EOM intact bilaterally; sclerae not anicteric ENMT: Ears: no external ear abnormality Nose: no external nose abnormality Mouth: + dry oral mucous membranes Neck: no nuchal rigidity Respiratory: normal respiratory effort Auscultation: lungs clear to auscultation bilaterally and + diminished lung sounds Cardiovascular: Rate/Rhythm: regular rate and regular rhythm Heart Sounds: + murmur Extremities: no edema Gastrointestinal (Abdomen): Inspection/Auscultation: normal bowel sounds; abdomen not distended and no abdominal edema Percussion/Palpation: abdomen soft; abdomen nontender Musculoskeletal: Extremities: strength 5/5 throughout Skin: no rashes, warm and dry Neurologic: mathew, fluent if slightly delayed speech, no tremor Psychiatric: Orientation: alert and oriented x 3 Motor Behavior: + psychomotor retardation (very slight) Speech: normal rate/rhythm/volume of speech (w/ some pauses for word finding) Results & Data ([facility]) Vital Signs (Past 12 Hours) Vital Signs Temp Pulse Pulse Resp BP Pulse Ox 08/08/20 07:53 36.6 C 79 22 139/89 98 08/08/20 07:35 80 08/08/20 03:40 37.1 C 75 20 133/71 89 L 08/07/20 23:15 36.9 C 84 20 136/86 100 Laboratory Results 08/05/20 07:42 08/08/20 06:57 Urinalysis at admission: Specific gravity 1020, pH 5.5, clear yellow urine with 3+ protein and glucose, 5-10 red cells, 10-20 epithelial cells and all other indices negative Admission blood cultures no growth to date/negative Diagnostic Findings Head CT yesterday afternoon Findings: Mild mucosal thickening within the ethmoid air cells. The mastoid air cells are clear. The calvarium and skull base are intact. There is no mass, hematoma, midline shift, acute infarct. White matter hypodensity is nonspecific but suggestive of microvascular ischemic change. The ventricles and sulci are within normal limits. There is an old small left frontal lobe infarct. Impression: No significant change compared to the prior study. No acute intracranial abnormality. No overt heart failure, pulmonary edema, vascular congestion, effusion, consolidation on admission or on 08/06 chest x-rays
[2020-08-08] MEDS: PANTOprazole 40 MG TAB PO SCH (08:46)
[2020-08-08] MEDS: CHOLECALCIFEROL 1,000 UNITS 25 MCG TAB PO SCH (08:46)
[2020-08-08] MEDS: METOPROLOL SUCC 50MG EXT REL TAB PO SCH ×2 (08:46→21:03)
[2020-08-08] MEDS: FLUTICASONE/VILANTEROL 100/25MCG 14 PUFFS/INHALER INH SCH (08:47)
[2020-08-08] MEDS: ATORVASTATIN 40 MG TAB PO SCH (08:47)
[2020-08-08] MEDS: ASPIRIN 81 MG ECTAB PO SCH (08:47)
[2020-08-08] MEDS: INSULIN ASPART 100 UNITS/ML 3 ML PEN SC SCH ×4 (09:09→21:24)
[2020-08-08] MEDS: INSULIN GLARGINE SOLOSTAR 100 UNITS/ML 3 ML PEN SQ SCH (09:10)
[2020-08-08] MEDS: guaiFENesin 600 MG TABCR PO SCH ×2 (10:02→21:03)
[2020-08-08 13:06] LABS: Appearance Urine Cloudy (Clear); Bacteria Urine Automated Negative (Negative); Bilirubin Urine Negative (Negative); Blood Urine Negative (Negative); Color Urine Yellow; Epithelial Cell Urine Auto >30 /lpf (0-5); Glucose Urine UA Trace (Negative); Ketones Urine Negative (Negative); Leukocyte Esterase Urine Negative (Negative); Nitrite Urine Negative (Negative); Protein Urine 2+ (Negative); RBC Urine Automated 0-4 /hpf (0-4); Specific Gravity Urine 1.016 (1.000-1.030); Urobilinogen Urine Negative (Negative)
--- NOTE | 2020-08-08 14:19 | Pharmacy Report ---
Pharmacy Glycemic Short Note 2 - Date of Service August 08, 2020 - Glycemic Short BSG Results (Last 24 hours): 08/07/20 08/07/20 08/08/20 16:10 19:57 06:57 Glucose 232 H POC Glucose 211 H 269 H 08/08/20 08/08/20 07:37 11:50 Glucose POC Glucose 221 H 254 H OUTPATIENT ANTIDIABETIC REGIMEN: * Lantus 25 units bid * Humalog 5 units with breakfast, 25 units with lunch and dinner and 15 units for high carb snack * A1c: 11.1% (08/05/20) ASSESSMENT: 08/08: * Pt received total of 83 units of insulin yesterday: 45 units basal and 38 units bolus. * Fasting BSG today was 221 mg/dl. Not clear why and this maybe an error. Continued current Lantus dose. * Pt's s.creatinine further increased today to 4.07 mg/dl. Renal impairment may result in insulin accumulation. * Tightened Novolog parameters due to consistently elevated BSG since yesterday. 08/07: * Pt received total of 116 units of insulin yesterday: 40 units basal and 76 units bolus. * Fasting BSG today was 150 mg/dl. Lantus dose increased slightly. * From past admission data, patient's BSG typically goes low in the morning. Therefore, HS Novolog parameters were loosened. 08/06 * BSGs yesterday elevated at 301, 326, 305, 278, and 269 mg/dL * Patient received 88 units of insulin (40 units of lantus, 44 units of prandial/correctional SC bolus, and 4 units of IV regular insulin) * Fasting BSG of 170 mg/dL this morning - will continue lantus 40 units daily * Lunch BSG of 378 mg/dL - > will give one-time IV insulin bolus and tighten carb ratio further 08/05 * 65yo T2DM male known to pharmacy from previous admissions/glycemic consults. * Typically, patient requires much less insulin for admission as compared to outpatient dosing. * No steroids ordered for covid+ * Will utilize similar dosing per previous admissions and titrate based on B SG trends. PLAN FOR INPATIENT GLYCEMIC CONTROL: * Basal insulin - continued * Lantus 45 units SQ daily * Bolus insulin - tightened * NovoLog per scale ACHS or Q6hrs while NPO * Goal Range: Low 120 mg/dL - High 150 mg/dL * Correction Factor: 10 mg/dL/unit with breakfast, lunch and dinner and 30 mg/dl/unit at HS * Nutritional / Prandial insulin per carb ratio of 1 unit per 3 grams CHO consumed with breakfast, lunch and dinner and 1 unit per 13 gm CHO at HS PLAN FOR DISCHARGE: * HbA1c of 11.1% demonstrates poor outpatient glycemic control * Outpatient basal insulin recently changed from Lantus 70 units daily to Lantus 25 units SQ BID. * Will follow inpatient insulin needs and recommend changes as appropriate
--- NOTE | 2020-08-08 14:49 | Cardiology Progress Note ---
Date of Service August 08, 2020 Assessment & Plan (1) COVID-19: Patient is a complex 65-year-old male as outlined who presents now with signs and symptoms of acute Covid infection with loss of sense of smell and taste cough and mild breathlessness. No hypoxia or pneumonia on chest x-ray to date. During course of evaluation to short runs of nonsustained ventricular tachycardia observed on telemetry. No signs of acute coronary syndrome with chronic troponin elevation present. No signs of heart failure on examination on x-ray Patient stable currently but creatinine worsening. Blood pressure trending lower. No signs of respiratory compromise. Lisinopril received this morning but now on hold. Torsemide on hold Plan: Continue current therapies with Toprol-XL 100 mg twice per day. Hydralazine lisinopril and torsemide on hold No further arrhythmias and hemoglobin stable INR slowly trending higher and possible hematuria would hold dose of warfarin tonight with ultimate goals maintaining full anticoagulation (2) Elevated troponin: Chronic troponin elevation present (3) Chronic atrial fibrillation: (4) CKD (chronic kidney disease) stage 4, GFR 15-29 ml/min: (5) Aortic stenosis: Admission and Anticipated Discharge Date Admission Date: August 05, 2020 Subjective Patient seen and examined, chart, medications, telemetry reviewed. Blood pressures improved no further hypotension. Notes an episode of red urine yesterday. No chest pains, tachypalpitations, dizziness or lightheadedness. No further arrhythmias on telemetry. Physical Exam Constitutional: WD/WN, vitals as above + obese; no acute distress Eyes: PERRL, conjunctivae normal, anicteric sclerae ENMT: external ear and nose normal, oropharynx normal Neck: trachea midline, no thyromegaly Respiratory: normal respiratory effort, lungs clear to auscultation Cardiovascular: Rate/Rhythm: regular rate and regular rhythm (Paced with occasional ventricular ectopic beat) Heart Sounds: normal S1, normal S2 and + murmur (Grade 2 or 6 systolic ejection murmur no diastolic murmur); no gallop Palpation: normal PMI Vessels: normal carotid upstroke and radial pulses present; no JVD and no carotid bruit Extremities: no edema Chest (Breasts): Chest: + pacemaker (Pacer defibrillator without irritation or tenderness) Gastrointestinal (Abdomen): normal bowel sounds, soft, nontender, no hepatosplenomegaly Inspection/Auscultation: + abdomen distended (Mildly) Musculoskeletal: no cyanosis or clubbing, extremities motor strength 5/5 Skin: no rashes, warm and dry Neurologic: PERRL, EOMI, accommodation nl, no face palsy, no dysarthria Psychiatric: A+Ox3, euthymic affect Results & Data ([place]) Vital Signs (Past 12 Hours) Vital Signs Temp Pulse Pulse Resp BP Pulse Ox 08/08/20 13:01 117/69 08/08/20 11:37 36.9 C 74 18 171/94 H 93 08/08/20 07:53 36.6 C 79 22 139/89 98 08/08/20 07:35 80 08/08/20 03:40 37.1 C 75 20 133/71 89 L Laboratory Results Laboratory Results - last 24 hr 08/07/20 08/07/20 08/08/20 16:10 19:57 06:57 PT 31.8 H INR 3.5 H Sodium Potassium Chloride Carbon Dioxide Anion Gap BUN Creatinine Est Cr Clr Drug Dosing Est GFR ( Amer) Est GFR (Non-Af Amer) BUN/Creatinine Ratio Glucose POC Glucose 211 H 269 H Calcium Urine Color Urine Appearance Urine pH Ur Specific Sayre Urine Protein Urine Glucose (UA) Urine Ketones Urine Blood Urine Nitrite Urine Bilirubin Urine Urobilinogen Ur Leukocyte Esterase Urine WBC (Auto) Urine RBC (Auto) U Hyaline Cast (Auto) U Epithel Cells (Auto) Urine Bacteria (Auto) Urine Yeast 08/08/20 08/08/20 08/08/20 06:57 07:37 10:30 PT INR Sodium 136 Potassium 4.1 Chloride 106 Carbon Dioxide 21 Anion Gap 9.0 BUN 69 H Creatinine 4.07 H D Est Cr Clr Drug Dosing 22.4 Est GFR ( Amer) 16.6 Est GFR (Non-Af Amer) 14.3 BUN/Creatinine Ratio 16.9 Glucose 232 H POC Glucose 221 H Calcium 8.9 Urine Color Yellow Urine Appearance Cloudy A Urine pH 5.0 Ur Specific Sayre 1.016 Urine Protein 2+ H Urine Glucose (UA) Trace H Urine Ketones Negative Urine Blood Negative Urine Nitrite Negative Urine Bilirubin Negative Urine Urobilinogen Negative Ur Leukocyte Esterase Negative Urine WBC (Auto) 1-5 Urine RBC (Auto) 0-4 U Hyaline Cast (Auto) 5-10 H U Epithel Cells (Auto) >30 H Urine Bacteria (Auto) Negative Urine Yeast Not Reportable 08/08/20 11:50 PT INR Sodium Potassium Chloride Carbon Dioxide Anion Gap BUN Creatinine Est Cr Clr Drug Dosing Est GFR ( Amer) Est GFR (Non-Af Amer) BUN/Creatinine Ratio Glucose POC Glucose 254 H Calcium Urine Color Urine Appearance Urine pH Ur Specific Sayre Urine Protein Urine Glucose (UA) Urine Ketones Urine Blood Urine Nitrite Urine Bilirubin Urine Urobilinogen Ur Leukocyte Esterase Urine WBC (Auto) Urine RBC (Auto) U Hyaline Cast (Auto) U Epithel Cells (Auto) Urine Bacteria (Auto) Urine Yeast Medications Administered Current Medications Acetaminophen (Acetaminophen 325 Mg Tab) 650 mg PO Q4H PRN PRN Reason: Pain or Fever Stop: 09/04/20 06:33 Last Admin: 08/06/20 05:18 Dose: 650 mg Documented by: Albuterol (Albuterol Hfa 8 Gm Inhaler) 2 puffs INH Q4H PRN PRN Reason: Shortness Of Breath Or Wheezing Stop: 09/04/20 06:42 Ascorbic Acid (Ascorbic Acid 500 Mg Tab) 250 mg PO BID [facility] Stop: 09/04/20 08:59 Last Admin: 08/06/20 08:11 Dose: 250 mg Documented by: Aspirin (Aspirin 81 Mg Ectab) [facility] [place]: 09/04/20 08:59 Last Admin: 08/08/20 08:47 Dose: 81 mg Documented by: Atorvastatin Calcium (Atorvastatin 40 Mg Tab) 80 mg PO DAILY [facility] Stop: 09/04/20 08:59 Last Admin: 08/08/20 08:47 Dose: 80 mg Documented by: Baclofen (Baclofen 10 Mg Tab) 10 mg PO HS [facility] Stop: 09/04/20 20:59 Last Admin: 08/07/20 21:02 Dose: 10 mg Documented by: Ferrous Sulfate (Ferrous Sulfate 325 Mg Tab) 325 mg PO BID [facility] Stop: 09/04/20 08:59 Last Admin: 08/06/20 08:12 Dose: 325 mg Documented by: Fluticasone Propionate (Fluticasone Propionate Na Spr 16 Gm Btl) 2 sprays NA DAILY PRN PRN Reason: Nasal Congestion Stop: 09/04/20 06:33 Fluticasone/Vilanterol (Fluticasone/Vilanterol 100/25mcg 14 Puffs/Inhaler) 1 puffs INH QAM [facility] Stop: 09/04/20 08:59 Last Admin: 08/08/20 08:47 Dose: 1 puffs Documented by: Gabapentin (Gabapentin 100 Mg Cap) 100 mg PO TIDM [facility] Stop: 09/04/20 07:59 Last Admin: 08/08/20 11:40 Dose: 100 mg Documented by: Guaifenesin (Guaifenesin 600 Mg Tabcr) 600 mg PO Q12 [facility] Stop: 09/07/20 08:59 Last Admin: 08/08/20 10:02 Dose: 600 mg Documented by: Hydralazine HCl (Hydralazine Tab 50 Mg Tab) 50 mg PO TID [facility] Stop: 09/04/20 20:59 Promethazine HCl 12.5 mg/ (Sodium Chloride) 50.5 mls @ 202 mls/hr IV Q6H PRN PRN Reason: Nausea And Vomiting Stop: 09/04/20 13:01 Insulin Aspart (Insulin Aspart 100 Units/Ml 3 Ml Pen) 0 units SC 0730,1130,1630 [facility] Stop: 09/06/20 16:29 Last Admin: 08/08/20 13:08 Dose: 21 units Documented by: Insulin Aspart (Insulin Aspart 100 Units/Ml 3 Ml Pen) 0 units SC HS [facility] Stop: 09/06/20 20:59 Last Admin: 08/07/20 20:55 Dose: 3 units Documented by: Insulin Glargine (Insulin Glargine Solostar 100 Units/Ml 3 Ml Pen) 45 units SQ DAILY [facility]; Protocol Stop: 09/06/20 08:59 Last Admin: 08/08/20 09:10 Dose: 45 units Documented by: Ipratropium Deming (Ipratropium Deming Neb Soln 0.02% 2.5 Ml Vial) 0.5 mg INH Q2H PRN PRN Reason: Shortness Of Breath Or Wheezing Stop: 09/04/20 06:33 Last Admin: 08/06/20 07:18 Dose: 0.5 mg Documented by: Isosorbide Dinitrate (Isosorbide Dinitrate 20 Mg Tab) 20 mg PO TIDM [facility] Stop: 09/04/20 07:59 Last Admin: 08/07/20 18:07 Dose: Not Given Documented by: Levalbuterol HCl (Levalbuterol 1.25mg/0.5ml Neb) 1.25 mg INH Q2H PRN PRN Reason: Shortness Of Breath Or Wheezing Stop: 09/04/20 06:33 Last Admin: 08/06/20 07:18 Dose: 1.25 mg Documented by: Lisinopril (Lisinopril 10 Mg Tab) 10 mg PO DAILY [facility] Stop: 09/04/20 08:59 Last Admin: 08/07/20 09:18 Dose: 10 mg Documented by: Metoprolol Succinate (Metoprolol Succ 50mg Ext Rel Tab) 100 mg PO BID [facility] Stop: 09/05/20 20:59 Last Admin: 08/08/20 08:46 Dose: 100 mg Documented by: Miscellaneous Information (Pharmacy Glycemic Mgmt Consult) 1 ea N/A UD PRN PRN Reason: Consult Stop: 09/04/20 08:48 Nitroglycerin (Nitroglycerin Sl 0.4 Mg/Tab Tab) 0.4 mg SL UD PRN PRN Reason: Chest Pain Stop: 09/04/20 06:33 Pantoprazole Sodium (Pantoprazole 40 Mg Tab) 40 mg PO QAM [facility] Stop: 09/04/20 08:59 Last Admin: 08/08/20 08:46 Dose: 40 mg Documented by: Polyethylene Glycol (Polyethylene (Miralax) 17 Gm Pack) 17 gm PO DAILY PRN PRN Reason: Constipation Stop: 09/04/20 06:33 Rosuvastatin Calcium (Rosuvastatin Calcium 20 Mg Tab) 40 mg PO HS [facility] Stop: 09/04/20 20:59 Last Admin: 08/07/20 21:02 Dose: 40 mg Documented by: Torsemide (Torsemide 10 Mg Tab) 10 mg PO QAM [facility] Stop: 09/04/20 08:59 Last Admin: 08/07/20 09:17 Dose: 10 mg Documented by: Vitamin D (Cholecalciferol 1,000 Units 25 Mcg Tab) 2,000 units PO QAM [facility] Stop: 09/04/20 08:59 Last Admin: 08/08/20 08:46 Dose: 2,000 units Documented by: Warfarin Sodium (Warfarin Sod 10 Mg Tab) 10 mg PO [email or web address] [facility] Stop: 09/05/20 15:59 Last Admin: 08/06/20 16:44 Dose: 10 mg Documented by: Warfarin Sodium (Warfarin Sod 5 Mg Tab) 5 mg PO [email or web address] [facility] Stop: 09/04/20 15:59 Last Admin: 08/07/20 19:58 Dose: Not Given Documented by: (1) Aortic stenosis Cardiac valve disease etiology: nonrheumatic Qualified Code(s): I35.0 - Nonrheumatic aortic (valve) stenosis
--- NOTE | 2020-08-08 15:47 | Hospitalist Progress Note ---
Date of Service August 08, 2020 Assessment & Plan (1) COVID-19: COVID 19 Infection CXR: Persistent cardiomegaly. No evidence of focal pulmonary consolidation Saturating well on room air GI symptoms improved Continue supportive care Nonsustained V. tach: Continue metoprolol 100 mg twice daily Appreciate cardiology input Monitor Acute renal failure on CKD stage IV: Cr: 2.98>4.07 Hold lisinopril, torsemide Avoid nephrotoxic stable Appreciate nephrology Input Hypotension BP Variable Hydralazine, isosorbide, lisinopril held for now Monitor BP ? Hematuria Supratherapeutic INR Urinalysis pending Coumadin on hold Biventricular heart failure S/P AICD Monitor volume status Resume diuretics as able Generalized weakness fatigue Due to COVID-19 illness PT OT as able DM II Continue Insulin therapy Monitor BGs H/O COPD H/O ARPIT Continue home inhalers CODE STATUS: Full code Disposition: Expected to be discharged home when medically stable Admission and Anticipated Discharge Date Admission Date: August 05, 2020 Subjective Patient is seen and examined at bedside Reports an episode of fall yesterday landing on his knees States having dizziness with positional change Poor appetite Also states having leg swelling which is gradually worsening Denies chest pain, shortness of breath, abd pain, nausea, vomiting, diarrhea Offers no other complaints Review of Systems Review of Systems: All systems reviewed & are unremarkable except as noted in HPI & below Physical Exam Physical Exam: Physical Exam: Vitals signs as noted above General Appearance:Obese, no apparent distress Head: normocephalic, Atraumatic Eyes: normal inspection, EOMI Neck: supple, Trachea midline Respiratory/Chest: Decreased breath sounds, CTA Cardiovascular: S1, S2, + murmur Abdomen/GI:Soft, Non tender, Bowel sounds present Extremities/Musculoskeletal:normal inspection, 1-2+ B/L LE edema Neurologic/Psych:AAOX3, grossly no focal neurological deficits Skin: normal color, warm Results & Data Results & Data ([facility]) Vital Signs (Past 12 Hours) Vital Signs Temp Pulse Pulse Resp BP Pulse Ox 08/08/20 14:20 70 08/08/20 13:01 117/69 08/08/20 11:37 36.9 C 74 18 171/94 H 93 08/08/20 07:53 36.6 C 79 22 139/89 98 08/08/20 07:35 80 Laboratory Results BMP 08/08/20 06:57 Sodium 136 Potassium 4.1 Chloride 106 Carbon Dioxide 21 BUN 69 H Creatinine 4.07 H D Glucose 232 H Calcium 8.9 Urine 08/08/20 Range/Units 10:30 Urine Color Yellow Urine Appearance Cloudy A (Clear) Urine pH 5.0 (4.5-7.5) Ur Specific [place] 1.016 (1.000-1.030) Urine Protein 2+ H (Negative) Urine Glucose (UA) Trace H (Negative)
[2020-08-08] MEDS: BACLOFEN 10 MG TAB PO SCH (21:03)
[2020-08-08] MEDS: ROSUVASTATIN CALCIUM 20 MG TAB PO SCH (21:04)
[2020-08-09 07:09] LABS: Hematocrit (blood only) 33.9 % (42-52); Hemoglobin 11.3 g/dL (14.0-18.0); Mean Corpuscular Hemoglobin 27.1 pg (25-34); Mean Corpuscular Hgb Conc 33.3 g/dL (32-36); Mean Corpuscular Volume 81.3 fL (80-100); Platelet Count 150 K/uL (130-400); RDW Coefficient of Variation 15.6 % (11.5-14.5); RDW Standard Deviation 46.6 fL (36.4-46.3); Red Blood Count 4.17 M/uL (4.7-6.1); White Blood Count 5.29 K/uL (4.8-10.8)
[2020-08-09 07:21] LABS: INR 2.5 (0.9-1.1); Prothrombin Time 23.2 Seconds (9.0-12.0)
[2020-08-09] MEDS: GABAPENTIN 100 MG CAP PO SCH ×3 (07:36→17:29)
[2020-08-09 07:45] LABS: BUN Creatinine Ratio 17.9 (10-20); Calcium 9.3 mg/dl (8.5-10.1); Creatinine Clr Calc Pharmacy 25.7 ml/min; Est GFR (African American) 19.7
[2020-08-09] MEDS: FLUTICASONE/VILANTEROL 100/25MCG 14 PUFFS/INHALER INH SCH (08:27)
[2020-08-09] MEDS: ATORVASTATIN 40 MG TAB PO SCH (08:29)
[2020-08-09] MEDS: METOPROLOL SUCC 50MG EXT REL TAB PO SCH ×2 (08:29→20:41)
[2020-08-09] MEDS: CHOLECALCIFEROL 1,000 UNITS 25 MCG TAB PO SCH (08:30)
[2020-08-09] MEDS: guaiFENesin 600 MG TABCR PO SCH ×2 (08:30→20:40)
[2020-08-09] MEDS: ASPIRIN 81 MG ECTAB PO SCH (08:30)
[2020-08-09] MEDS: PANTOprazole 40 MG TAB PO SCH (08:30)
[2020-08-09] MEDS: INSULIN ASPART 100 UNITS/ML 3 ML PEN SC SCH ×4 (08:45→20:48)
[2020-08-09] MEDS: INSULIN GLARGINE SOLOSTAR 100 UNITS/ML 3 ML PEN SQ SCH ×2 (09:00→20:45)
--- NOTE | 2020-08-09 09:48 | Pharmacy Report ---
Pharmacy Glycemic Short Note 2 - Date of Service August 09, 2020 - Glycemic Short BSG Results (Last 24 hours): 08/08/20 08/08/20 08/08/20 11:50 16:36 21:03 Glucose POC Glucose 254 H 157 H 138 H 08/09/20 08/09/20 08/09/20 06:42 07:29 07:31 Glucose 55 L POC Glucose 59 L* 61 L* 08/09/20 07:50 Glucose POC Glucose 81 OUTPATIENT ANTIDIABETIC REGIMEN: * Lantus 25 units bid * Humalog 5 units with breakfast, 25 units with lunch and dinner and 15 units for high carb snack * A1c: 11.1% (08/05/20) ASSESSMENT: 08/09: * BSGs yesterday of 221, 254, 157, and 138 mg/dL * Received 102 units of insulin (45 units of which were basal) * Fasting BSG of 61 mg/dL this morning * Will switch back to BID Lantus dosing per outpatient regimen and in light of hypoglycemia this morning * 25 units SC this morning, will utilize scale this evening 08/08: * Pt received total of 83 units of insulin yesterday: 45 units basal and 38 units bolus. * Fasting BSG today was 221 mg/dl. Not clear why and this maybe an error. Continued current Lantus dose. * Pt's s.creatinine further increased today to 4.07 mg/dl. Renal impairment may result in insulin accumulation. * Tightened Novolog parameters due to consistently elevated BSG since yesterday. 08/06 * BSGs yesterday elevated at 301, 326, 305, 278, and 269 mg/dL * Patient received 88 units of insulin (40 units of lantus, 44 units of prandial/correctional SC bolus, and 4 units of IV regular insulin) * Fasting BSG of 170 mg/dL this morning - will continue lantus 40 units daily * Lunch BSG of 378 mg/dL - > will give one-time IV insulin bolus and tighten carb ratio further 08/05 * 65yo T2DM male known to pharmacy from previous admissions/glycemic consults. * Typically, patient requires much less insulin for admission as compared to outpatient dosing. * No steroids ordered for covid+ * Will utilize similar dosing per previous admissions and titrate based on BSG trends. PLAN FOR INPATIENT GLYCEMIC CONTROL: * Basal insulin - switch to BID dosing * Lantus 25 units SC qAM * Lantus scale HS 10-15 units SC HS (see EHR for details) * Bolus insulin * NovoLog per scale ACHS or Q6hrs while NPO * Goal Range: Low 100 mg/dL - High 150 mg/dL * Correction Factor: 12 mg/dL/unit with breakfast, lunch and dinner and 30 mg/dl/unit at HS * Nutritional / Prandial insulin per carb ratio of 1 unit per 3 grams CHO consumed with breakfast, lunch and dinner and 1 unit per 13 gm CHO at HS PLAN FOR DISCHARGE: * HbA1c of 11.1% demonstrates poor outpatient glycemic control * Outpatient basal insulin recently changed from Lantus 70 units daily to Lantus 25 units SQ BID - this seems reasonable at this point. * At this point based on inpatient needs, seems reasonable to increase scheduled dose of Humalog with breakfast from 5 to 15 units * Will continue to follow inpatient insulin needs and make changes as appropriate
--- NOTE | 2020-08-09 13:50 | XRay Report ---
XR chest 1V portable CLINICAL HISTORY: cough, Covid COMPARISON STUDY: Chest radiograph August 06, 2020. FINDINGS: A left subclavian biventricular pacer/AICD is in place. There is stable cardiomegaly withou t evidence for pulmonary edema. No consolidation is identified. No pneumothorax or pleural effusion i s noted. The appearance of the chest is unchanged. IMPRESSION: No acute cardiopulmonary findings. No change in appearance of the chest. ACT 112: Negative or not required by law. Electronically signed by: Balwinder Juarez M.D. 08/09/2020 1:49 PM
--- NOTE | 2020-08-09 14:03 | XRay Report ---
XR foot RT 2V CLINICAL HISTORY: right great toe trauma, edema COMPARISON: None FINDINGS: Right first toe soft tissue swelling is noted. There is a possible acute nondisplaced frac ture within the distal phalanx of the right first toe. Extensive vascular calcification is incidental ly noted. Tarsometatarsal joints are intact. IMPRESSION: Equivocal acute nondisplaced fracture of the distal phalanx of the right first toe. ACT 112: Negative or not required by law. Electronically signed by: Balwinder Juarez M.D. 08/09/2020 2:02 PM
--- NOTE | 2020-08-09 14:42 | Nephrology Progress Note ---
Date of Service August 09, 2020 Assessment & Plan (1) Acute renal failure superimposed on stage 4 chronic kidney disease: His renal function was at baseline when he presented. Peaked at 4.1 on 08/08 likely due to a combination of factors including labile blood pressure, heart arrhythmias, Covid infection. Continue to hold VENKATA inhibitor and torsemide Daily basic metabolic panel Repeat urinalysis ordered with microscopy >> report of gross hematuria 08/08 but urine w/o blood or change in chronic profile (proteinuria, glucosuria) No indication at this time for renal imaging Strict I's and O's very important for his care; low threshold for bladder scans Care coordinated w/ Dr Ames (2) Chronic systolic (congestive) heart failure: No evidence of exacerbation at this time. Cardiology following. EF 30 to 35%. Torsemide on hold for now; continue to hold today and look to reintroduce tomorrow or today if worsening HTN, breathing status -Could use Lasix 40 mg IV for acute dyspnea prn Ordered less than 2 g daily sodium diet and 1.5 L fluid limit Team assistance appreciated with daily standing weights (3) Labile blood pressure: Symptomatic and with a fall 08/07. No overt injury. Currently on obligate doubled dose of beta-blockade. multiple meds on hold as well. Continue current medications and observation as well as fall precautions (4) COVID-19: Supportive care and monitoring for change in status Admission and Anticipated Discharge Date Admission Date: August 05, 2020 Subjective c/o worsening leg edema and "breathing hard" but not sob; still issues w/ word finding Review of Systems Review of Systems: All systems reviewed & are unremarkable except as noted in Subjective Physical Exam Constitutional: well developed, well nourished, + obese, cooperative and comfortable; no acute distress Eyes: EOM intact bilaterally; sclerae not anicteric ENMT: Ears: no external ear abnormality Nose: no external nose abnormality Mouth: + dry oral mucous membranes Neck: no nuchal rigidity Respiratory: normal respiratory effort Auscultation: lungs clear to auscultation bilaterally and + diminished lung sounds Cardiovascular: Rate/Rhythm: regular rate and regular rhythm Heart Sounds: + murmur Extremities: + edema (2+ pedal) Gastrointestinal (Abdomen): Inspection/Auscultation: normal bowel sounds; abdomen not distended and no abdominal edema Percussion/Palpation: abdomen soft; abdomen nontender Musculoskeletal: Extremities: strength 5/5 throughout Skin: no rashes, warm and dry Neurologic: mathew, fluent speech Psychiatric: Orientation: alert and oriented x 3 Motor Behavior: + psychomotor retardation (very slight) Speech: normal rate/rhythm/volume of speech (w/ some pauses for word finding) Results & Data ([place]) Vital Signs (Past 12 Hours) Vital Signs Temp Pulse Pulse Resp BP BP Pulse Ox 08/09/20 11:37 36.4 C L 78 20 171/90 H 90 08/09/20 07:27 36.5 C 67 23 125/79 98 08/09/20 07:22 77 08/09/20 03:47 36.9 C 76 18 146/78 H 96 Laboratory Results 08/09/20 06:42 08/09/20 06:42
--- NOTE | 2020-08-09 15:25 | Cardiology Progress Note ---
Date of Service August 09, 2020 Assessment & Plan (1) COVID-19: Patient is a complex 65-year-old male as outlined who presents now with signs and symptoms of acute Covid infection with loss of sense of smell and taste cough and mild breathlessness. No hypoxia or pneumonia on chest x-ray to date. During course of evaluation to short runs of nonsustained ventricular tachycardia observed on telemetry. No signs of acute coronary syndrome with chronic troponin elevation present. No signs of heart failure on examination on x-ray Plan: No acute decline and overall stable from cardiac standpoint. Management is complicated by patient's underlying renal insufficiency severe aortic stenosi s and labile hypertension. Agree with nephrology and put an plan Continue to hold diuretic and VENKATA inhibitor with low threshold for reinstituting with worsening edema or shortness of No acute infectious pneumonia process noted and patient without hypoxia (2) Elevated troponin: Chronic troponin elevation present (3) Chronic atrial fibrillation: Rate controlled with biventricular pacing. Patient appropriately anticoagulated. Past history of thromboembolic episode on withdrawal of antic oagulation would maintain (4) CKD (chronic kidney disease) stage 4, GFR 15-29 ml/min: (5) Aortic stenosis: Borderline severe Admission and Anticipated Discharge Date Admission Date: August 05, 2020 Subjective Patient was seen and examined, chart, medications, telemetry reviewed No chest pain or tachypalpitations overnight. No further arrhythmias on telemetry. Renal function Physical Exam Constitutional: WD/WN, vitals as above + obese; no acute distress Eyes: PERRL, conjunctivae normal, anicteric sclerae ENMT: external ear and nose normal, oropharynx normal Neck: trachea midline, no thyromegaly Respiratory: normal respiratory effort, lungs clear to auscultation Cardiovascular: Rate/Rhythm: regular rate and regular rhythm (Paced with occasional ventricular ectopic beat) Heart Sounds: normal S1, normal S2 and + murmur (Grade 2 or 6 systolic ejection murmur no diastolic murmur); no gallop Palpation: normal PMI Vessels: normal carotid upstroke and radial pulses present; no JVD and no carotid bruit Extremities: no edema Chest (Breasts): Chest: + pacemaker (Pacer defibrillator without irritation or tenderness) Gastrointestinal (Abdomen): normal bowel sounds, soft, nontender, no hepatosplenomegaly Inspection/Auscultation: + abdomen distended (Mildly) Musculoskeletal: no cyanosis or clubbing, extremities motor strength 5/5 Skin: no rashes, warm and dry Neurologic: PERRL, EOMI, accommodation nl, no face palsy, no dysarthria Psychiatric: A+Ox3, euthymic affect Results & Data ([facility]) Vital Signs (Past 12 Hours) Vital Signs Temp Pulse Pulse Resp BP BP Pulse Ox 08/09/20 15:19 36.9 C 77 20 154/79 H 96 08/09/20 11:37 36.4 C L 78 20 171/90 H 90 08/09/20 07:27 36.5 C 67 23 125/79 98 08/09/20 07:22 77 08/09/20 03:47 36.9 C 76 18 146/78 H 96 (1) Aortic stenosis Cardiac valve disease etiology: nonrheumatic Qualified Code(s): I35.0 - Nonrheumatic aortic (valve) stenosis
--- NOTE | 2020-08-09 18:12 | Hospitalist Progress Note ---
Date of Service August 09, 2020 Assessment & Plan (1) COVID-19: COVID 19 Infection CXR: Persistent cardiomegaly. No evidence of focal pulmonary consolidation Saturating well on room air GI symptoms resolved Continue supportive care Nonsustained V. tach: Chronic atrial fibrillation Continue metoprolol 100 mg twice daily Appreciate cardiology input Resume Coumadin as able Monitor INR Acute renal failure on CKD stage IV: Cr: 2.98>4.07> 3.53 Hold lisinopril, torsemide Avoid nephrotoxic stable Appreciate nephrology Input Right Great Toe fracture Secondary to fall Foot X ray:Equivocal acute nondisplaced fracture of the distal phalanx of the right first toe Orthopedics consulted Hypotension BP Variable Orthostatics negative Hydralazine, isosorbide, lisinopril held for now Monitor BP ? Hematuria UA showed no microscopic hematuria Supratherapeutic INR--Resolved Coumadin on hold INR:2.5 Biventricular heart failure S/P AICD Monitor volume status Resume diuretics as able Generalized weakness fatigue Due to COVID-19 illness PT OT as able DM II Continue Insulin therapy Monitor BGs H/O COPD H/O ARPIT Continue home inhalers CODE STATUS: Full code Disposition: Expected to be discharged home when medically stable Admission and Anticipated Discharge Date Admission Date: August 05, 2020 Subjective Patient is seen and examined at bedside Reports leg edema Also states having some bleeding and pain of right great toe Dizziness slightly better Denies shortness of breath Has minimal cough Offers no other complaints Review of Systems Review of Systems: All systems reviewed & are unremarkable except as noted in HPI & below Physical Exam Physical Exam: Physical Exam: Vitals signs as noted above General Appearance:Obese, no apparent distress Head: normocephalic, Atraumatic Eyes: normal inspection, EOMI Neck: supple, Trachea midline Respiratory/Chest: Decreased breath sounds, CTA Cardiovascular: S1, S2, + murmur Abdomen/GI:Soft, Non tender, Bowel sounds present Extremities/Musculoskeletal:normal inspection, 1-2+ B/L LE edema Neurologic/Psych:AAOX3, grossly no focal neurological deficits, Right great toe tender Skin: normal color, warm Results & Data Results & Data ([facility]) Vital Signs (Past 12 Hours) Vital Signs Temp Pulse Pulse Resp BP BP Pulse Ox 08/09/20 15:19 36.9 C 77 20 154/79 H 96 08/09/20 14:30 81 08/09/20 11:37 36.4 C L 78 20 171/90 H 90 08/09/20 07:27 36.5 C 67 23 125/79 98 08/09/20 07:22 77 Laboratory Results Short CBC 08/09/20 Range/Units 06:42 WBC 5.29 (4.8-10.8) K/uL Hgb 11.3 L (14.0-18.0) g/dL Hct 33.9 L (42-52) % Plt Count 150 (130-400) K/uL BMP 08/09/20 06:42 Sodium 143 D Potassium 4.0 Chloride 112 H Carbon Dioxide 22 BUN 63 H Creatinine 3.53 H D Glucose 55 L Calcium 9.3
[2020-08-09] MEDS: BACLOFEN 10 MG TAB PO SCH (20:40)
[2020-08-09] MEDS: ROSUVASTATIN CALCIUM 20 MG TAB PO SCH (20:43)
[2020-08-10 07:42] LABS: Hematocrit (blood only) 35.1 % (42-52); Hemoglobin 11.5 g/dL (14.0-18.0); Mean Corpuscular Hemoglobin 26.9 pg (25-34); Mean Corpuscular Hgb Conc 32.8 g/dL (32-36); Mean Corpuscular Volume 82.2 fL (80-100); Mean Platelet Volume 10.8 fL (7.4-10.4); Platelet Count 169 K/uL (130-400); RDW Coefficient of Variation 15.8 % (11.5-14.5); RDW Standard Deviation 47.8 fL (36.4-46.3); Red Blood Count 4.27 M/uL (4.7-6.1); White Blood Count 6.49 K/uL (4.8-10.8)
[2020-08-10 07:57] LABS: INR 1.8 (0.9-1.1); Prothrombin Time 17.3 Seconds (9.0-12.0)
[2020-08-10 08:13] LABS: BUN Creatinine Ratio 17.3 (10-20); Calcium 9.6 mg/dl (8.5-10.1); Creatinine Clr Calc Pharmacy 27.8 ml/min; Est GFR (African American) 21.8; Est GFR (Non-African American) 18.8; Potassium 4.1 mmol/L (3.5-5.1)
[2020-08-10] MEDS: FLUTICASONE/VILANTEROL 100/25MCG 14 PUFFS/INHALER INH SCH (08:18)
[2020-08-10] MEDS: CHOLECALCIFEROL 1,000 UNITS 25 MCG TAB PO SCH (08:19)
[2020-08-10] MEDS: PANTOprazole 40 MG TAB PO SCH (08:19)
[2020-08-10] MEDS: ATORVASTATIN 40 MG TAB PO SCH (08:19)
[2020-08-10] MEDS: GABAPENTIN 100 MG CAP PO SCH ×3 (08:19→16:53)
[2020-08-10] MEDS: ASPIRIN 81 MG ECTAB PO SCH (08:19)
[2020-08-10] MEDS: guaiFENesin 600 MG TABCR PO SCH ×2 (08:19→20:43)
[2020-08-10] MEDS: METOPROLOL SUCC 50MG EXT REL TAB PO SCH ×2 (08:20→20:43)
[2020-08-10] MEDS: INSULIN ASPART 100 UNITS/ML 3 ML PEN SC SCH ×4 (08:26→20:46)
[2020-08-10] MEDS: INSULIN GLARGINE SOLOSTAR 100 UNITS/ML 3 ML PEN SQ SCH ×2 (08:28→20:45)
--- NOTE | 2020-08-10 08:49 | Nephrology Progress Note ---
Date of Service August 10, 2020 Assessment & Plan (1) Acute renal failure superimposed on stage 4 chronic kidney disease: His renal function was at baseline when he presented. Peaked at 4.1 on 08/08 likely due to a combination of factors including labile blood pressure, heart arrhythmias, Covid infection. back to baseline today. Pt report of gross hematuria 08/08 but urine w/o blood or change in chronic profile (proteinuria, glucosuria). Continue to hold VENKATA inhibitor >resumed torsemide 10 mg daily today Daily basic metabolic panel No indication at this time for renal imaging Strict I's and O's very important for his care; low threshold for bladder scans Care coordinated w/ Dr Ames and Dr Graves (2) Chronic systolic (congestive) heart failure: No evidence of exacerbation at this time. Cardiology following. EF 30 to 35%. Torsemide resumed Ordered less than 2 g daily sodium diet and 1.5 L fluid limit Team assistance appreciated with daily standing weights > wt has been stable even w/o torsemide (3) Labile blood pressure: Symptomatic and with a fall 08/07. No overt injury. Currently on obligate doubled dose of beta-blockade. multiple meds on hold as well. Continue current medications and observation as well as fall precautions (4) COVID-19: Supportive care and monitoring for change in status Admission and Anticipated Discharge Date Admission Date: August 05, 2020 Subjective seen on rounds at 1010; no worsenign sob, no chest pain, no further dizziness or fall or presyncopal sx; c/o foot/toe pain R Review of Systems Review of Systems: All systems reviewed & are unremarkable except as noted in Subjective Physical Exam Constitutional: well developed, well nourished, + obese, cooperative and comfortable; no acute distress Eyes: EOM intact bilaterally; sclerae not anicteric ENMT: Ears: no external ear abnormality Nose: no external nose abnormality Mouth: + dry oral mucous membranes Neck: no nuchal rigidity Respiratory: normal respiratory effort Auscultation: lungs clear to auscultation bilaterally and + diminished lung sounds Cardiovascular: Rate/Rhythm: regular rate and regular rhythm Heart Sounds: + murmur Extremities: + edema (1-2+ pedal) Gastrointestinal (Abdomen): Inspection/Auscultation: normal bowel sounds; abdomen not distended and no abdominal edema Percussion/Palpation: abdomen soft; abdomen nontender Musculoskeletal: Extremities: strength 5/5 throughout Skin: no rashes, warm and dry Psychiatric: Orientation: alert and oriented x 3 Motor Behavior: + psychomotor retardation (very slight) Speech: normal rate/rhythm/volume of speech (w/ some pauses for word finding) Results & Data ([facility]) Vital Signs (Past 12 Hours) Vital Signs Temp Pulse Pulse Resp BP BP Pulse Ox 08/10/20 07:26 36.9 C 75 20 158/90 H 98 08/10/20 07:00 69 08/10/20 04:16 36.4 C L 84 18 163/94 H 97 08/10/20 01:00 08/09/20 23:29 36.5 C 69 20 124/87 99 Pulse Ox 08/10/20 07:26 08/10/20 07:00 08/10/20 04:16 08/10/20 01:00 99 08/09/20 23:29 Laboratory Results 08/10/20 07:10 08/10/20 07:10
[2020-08-10] MEDS: TORSEMIDE 10 MG TAB PO SCH (11:30)
--- NOTE | 2020-08-10 13:55 | Cardiology Progress Note ---
Date of Service August 10, 2020 Assessment & Plan (1) COVID-19: Patient is a complex 65-year-old male as outlined who presents now with signs and symptoms of acute Covid infection with loss of sense of smell and taste cough and mild breathlessness. No hypoxia or pneumonia on chest x-ray to date. During course of evaluation to short runs of nonsustained ventricular tachycardia observed on telemetry. No signs of acute coronary syndrome with chronic troponin elevation present. No signs of heart failure on examination on x-ray Plan: Stable from cardiac standpoint would continue increased dose of metoprolol succinate. Diuretics resumed Continue chronic anticoagulation with warfarin (2) Elevated troponin: Chronic troponin elevation present (3) Chronic atrial fibrillation: Rate controlled with biventricular pacing. Patient appropriately anticoagulated. Past history of thromboembolic episode on withdrawal of anticoagulation would maintain (4) CKD (chronic kidney disease) stage 4, GFR 15-29 ml/min: (5) Aortic stenosis: Borderline severe Admission and Anticipated Discharge Date Admission Date: August 05, 2020 Subjective Patient was seen and examined, chart, medications, telemetry reviewed. No overt complaints this morning. Renal function returning to baseline. Diuretic resumed. No further arrhythmias on telemetry no chest pains no tachypalpitations. No fevers chills or cough Physical Exam Constitutional: WD/WN, vitals as above + obese; no acute distress Eyes: PERRL, conjunctivae normal, anicteric sclerae ENMT: external ear and nose normal, oropharynx normal Neck: trachea midline, no thyromegaly Respiratory: normal respiratory effort, lungs clear to auscultation Cardiovascular: Rate/Rhythm: regular rate and regular rhythm (Paced with occasional ventricular ectopic beat) Heart Sounds: normal S1, normal S2 and + murmur (Grade 2 or 6 systolic ejection murmur no diastolic murmur); no gallop Palpation: normal PMI Vessels: normal carotid upstroke and radial pulses present; no JVD and no carotid bruit Extremities: + edema (1+ pedal) Chest (Breasts): Chest: + pacemaker (Pacer defibrillator without irritation or tenderness) Gastrointestinal (Abdomen): normal bowel sounds, soft, nontender, no hepatosplenomegaly Inspection/Auscultation: + abdomen distended (Mildly) Musculoskeletal: no cyanosis or clubbing, extremities motor strength 5/5 Skin: no rashes, warm and dry Neurologic: PERRL, EOMI, accommodation nl, no face palsy, no dysarthria Psychiatric: A+Ox3, euthymic affect Results & Data ([facility]) Vital Signs (Past 12 Hours) Vital Signs Temp Pulse Pulse Resp BP BP Pulse Ox 08/10/20 11:32 36.4 C L 79 20 160/95 H 94 08/10/20 07:26 36.9 C 75 20 158/90 H 98 08/10/20 07:00 69 08/10/20 04:16 36.4 C L 84 18 163/94 H 97 Laboratory Results Laboratory Results - last 24 hr 08/09/20 08/09/20 08/10/20 16:37 20:06 03:00 WBC RBC Hgb Hct MCV MCH MCHC RDW Std Deviation RDW Coeff of Joey Plt Count MPV PT INR Sodium Potassium Chloride Carbon Dioxide Anion Gap BUN Creatinine Est Cr Clr Drug Dosing Est GFR ( Amer) Est GFR (Non-Af Amer) BUN/Creatinine Ratio Glucose POC Glucose 285 H 215 H 146 H Calcium 08/10/20 08/10/20 08/10/20 07:10 07:10 07:10 WBC 6.49 RBC 4.27 L Hgb 11.5 L Hct 35.1 L MCV 82.2 MCH 26.9 MCHC 32.8 RDW Std Deviation 47.8 H RDW Coeff of Joey 15.8 H Plt Count 169 MPV 10.8 H PT 17.3 H INR 1.8 H Sodium 141 Potassium 4.1 Chloride 113 H Carbon Dioxide 20 L Anion Gap 8.0 BUN 56 H Creatinine 3.25 H Est Cr Clr Drug Dosing 27.8 Est GFR ( Amer) 21.8 Est GFR (Non-Af Amer) 18.8 BUN/Creatinine Ratio 17.3 Glucose 142 H POC Glucose Calcium 9.6 08/10/20 08/10/20 07:20 11:53 WBC RBC Hgb Hct MCV MCH MCHC RDW Std Deviation RDW Coeff of Joey Plt Count MPV PT INR Sodium Potassium Chloride Carbon Dioxide Anion Gap BUN Creatinine Est Cr Clr Drug Dosing Est GFR ( Amer) Est GFR (Non-Af Amer) BUN/Creatinine Ratio Glucose POC Glucose 139 H 201 H Calcium (1) Aortic stenosis Cardiac valve disease etiology: nonrheumatic Qualified Code(s): I35.0 - Nonrheumatic aortic (valve) stenosis
--- NOTE | 2020-08-10 14:35 | Pharmacy Report ---
Pharmacy Glycemic Short Note 2 - Date of Service August 10, 2020 - Glycemic Short BSG Results (Last 24 hours): 08/09/20 08/09/20 08/10/20 16:37 20:06 03:00 Glucose POC Glucose 285 H 215 H 146 H 08/10/20 08/10/20 08/10/20 07:10 07:20 11:53 Glucose 142 H POC Glucose 139 H 201 H OUTPATIENT ANTIDIABETIC REGIMEN: * Lantus 25 units bid * Humalog 5 units with breakfast, 25 units with lunch and dinner and 15 units for high carb snack * A1c: 11.1% (08/05/20) ASSESSMENT: 08/10: * Patient received total of 96 units of insulin yesterday, of which 40 units were basal insulin * Fasting BSG 139 mg/dL - continue with basal scale at HS * Lunch BSG trending upward, will tighten CR 08/09: * BSGs yesterday of 221, 254, 157, and 138 mg/dL * Received 102 units of insulin (45 units of which were basal) * Fasting BSG of 61 mg/dL this morning * Will switch back to BID Lantus dosing per outpatient regimen and in light of hypoglycemia this morning * 25 units SC this morning, will utilize scale this evening 08/08: * Pt received total of 83 units of insulin yesterday: 45 units basal and 38 units bolus. * Fasting BSG today was 221 mg/dl. Not clear why and this maybe an error. Continued current Lantus dose. * Pt's s.creatinine further increased today to 4.07 mg/dl. Renal impairment may result in insulin accumulation. * Tightened Novolog parameters due to consistently elevated BSG since yesterday. 08/06 * BSGs yesterday elevated at 301, 326, 305, 278, and 269 mg/dL * Patient received 88 units of insulin (40 units of lantus, 44 units of prandial/correctional SC bolus, and 4 units of IV regular insulin) * Fasting BSG of 170 mg/dL this morning - will continue lantus 40 units daily * Lunch BSG of 378 mg/dL - > will give one-time IV insulin bolus and tighten carb ratio further 08/05 * 65yo T2DM male known to pharmacy from previous admissions/glycemic consults. * Typically, patient requires much less insulin for admission as compared to outpatient dosing. * No steroids ordered for covid+ * Will utilize similar dosing per previous admissions and titrate based on BSG trends. PLAN FOR INPATIENT GLYCEMIC CONTROL: * Basal insulin - switch to BID dosing * Lantus 25 units SC qAM * Lantus scale HS 10-15 units SC HS (see EHR for details) * Bolus insulin * NovoLog per scale ACHS or Q6hrs while NPO * Goal Range: Low 100 mg/dL - High 150 mg/dL * Correction Factor: 12 mg/dL/unit with breakfast, lunch and dinner and 30 mg/dl/unit at HS * Nutritional / Prandial insulin per carb ratio of 1 unit per 2.5 grams CHO consumed with breakfast, lunch and dinner and 1 unit per 13 gm CHO at HS PLAN FOR DISCHARGE: * HbA1c of 11.1% demonstrates poor outpatient glycemic control * Outpatient basal insulin recently changed from Lantus 70 units daily to Lantus 25 units SQ BID - this seems reasonable at this point. * At this point based on inpatient needs, seems reasonable to increase scheduled dose of Humalog with breakfast from 5 to 15 units * Will continue to follow inpatient insulin needs and make changes as appropriate * Patient met with DM educator - patient reports that he would like his insulin regimen typed up on discharge so that he can follow changes. Will try and coordinate for discharge
[2020-08-10] MEDS ORDERED: WARFARIN SOD 5 MG TAB PO SCH (16:00)
--- NOTE | 2020-08-10 18:31 | Orthopedic Progress Note ---
Date of Service August 10, 2020 Assessment & Plan Admission and Anticipated Discharge Date Admission Date: August 05, 2020 Subjective This is a orthopedic communication note related to the patient's nondisplaced d istal phalanx fracture of the right great toe, right foot. Apparently patient had a fall to his knees after he was hypotensive and dizzy on 08/08/2020. Medical team responded to patient's concerns regarding new onset right big toe pain with a radiograph which demonstrated a nondisplaced fracture of the distal phalanx great toe. Patient's care was discussed with Dr. Ames and given instructions this should be managed with conservative care possibly with a hard postoperative shoe versus a comfortable tennis shoe and the patient may weight- bear as tolerated, ice and elevate as needed and follow-up in clinic with Dr. Rosario in 7 to 14 days for further care and management. Results & Data ([facility]) Vital Signs (Past 12 Hours) Vital Signs Temp Pulse Pulse Resp BP BP Pulse Ox 08/10/20 16:20 36.4 C L 75 19 148/86 H 91 08/10/20 14:57 69 08/10/20 11:32 36.4 C L 79 20 160/95 H 94 08/10/20 07:26 36.9 C 75 20 158/90 H 98 08/10/20 07:00 69
--- NOTE | 2020-08-10 19:03 | Hospitalist Progress Note ---
Date of Service August 10, 2020 Assessment & Plan (1) COVID-19: COVID 19 Infection CXR: Persistent cardiomegaly. No evidence of focal pulmonary consolidation Saturating well on room air GI symptoms resolved Continue supportive care Nonsustained V. tach: Chronic atrial fibrillation Continue metoprolol 100 mg twice daily Appreciate cardiology input Resume Coumadin today Monitor INR:2.5>1.8 Acute renal failure on CKD stage IV: Cr: 2.98>4.07> 3.53>3.25 Hold lisinopril Avoid nephrotoxic stable Appreciate nephrology Input Chronic systolic heart failure Resumed Torsemide today Monitor I/Os, daily weight Right Great Toe fracture Secondary to fall Foot X ray:Equivocal acute nondisplaced fracture of the distal phalanx of the right first toe Appreciate Orthopedics Input WBAT Post operative boot for ambulation Hypotension BP Variable Orthostatics negative Hydralazine, isosorbide, lisinopril held for now Monitor BP ? Hematuria UA showed no microscopic hematuria Supratherapeutic INR--Resolved Monitor INR Biventricular heart failure S/P AICD Monitor volume status Resume diuretics as able Generalized weakness fatigue Due to COVID-19 illness PT OT as able DM II Continue Insulin therapy Monitor BGs H/O COPD H/O ARPIT Continue home inhalers DVT Px: Coumadin CODE STATUS: Full code Disposition: Expected to be discharged home when medically stable Admission and Anticipated Discharge Date Admission Date: August 05, 2020 Subjective Patient is seen and examined at bedside States having dyspnea on exertion Reports non expectorant cough Right foot pain is controlled Denies dizziness today Leg edema better today Review of Systems Review of Systems: All systems reviewed & are unremarkable except as noted in HPI & below Physical Exam Physical Exam: Physical Exam: Vitals signs as noted above General Appearance:Obese, no apparent distress Head: normocephalic, Atraumatic Eyes: normal inspection, EOMI Neck: supple, Trachea midline Respiratory/Chest: Decreased breath sounds, CTA Cardiovascular: S1, S2, + murmur Abdomen/GI:Soft, Non tender, Bowel sounds present Extremities/Musculoskeletal:normal inspection, 1-2+ B/L LE edema Neurologic/Psych:AAOX3, grossly no focal neurological deficits, Right great toe tender Skin: normal color, warm Results & Data Results & Data ([facility]) Vital Signs (Past 12 Hours) Vital Signs Temp Pulse Pulse Resp BP BP Pulse Ox 08/10/20 16:20 36.4 C L 75 19 148/86 H 91 08/10/20 14:57 69 08/10/20 11:32 36.4 C L 79 20 160/95 H 94 08/10/20 07:26 36.9 C 75 20 158/90 H 98 Laboratory Results Short CBC 08/10/20 Range/Units 07:10 WBC 6.49 (4.8-10.8) K/uL Hgb 11.5 L (14.0-18.0) g/dL Hct 35.1 L (42-52) % Plt Count 169 (130-400) K/uL BMP 08/10/20 07:10 Sodium 141 Potassium 4.1 Chloride 113 H Carbon Dioxide 20 L BUN 56 H Creatinine 3.25 H Glucose 142 H Calcium 9.6
[2020-08-10] MEDS: BACLOFEN 10 MG TAB PO SCH (20:43)
[2020-08-10] MEDS: ROSUVASTATIN CALCIUM 20 MG TAB PO SCH (20:43)
[2020-08-11] MEDS: WARFARIN SOD 10 MG TAB PO SCH (07:29)
[2020-08-11 07:43] LABS: INR 1.5 (0.9-1.1); Prothrombin Time 14.6 Seconds (9.0-12.0)
[2020-08-11 08:10] LABS: BUN Creatinine Ratio 17.7 (10-20); Calcium 9.4 mg/dl (8.5-10.1); Creatinine Clr Calc Pharmacy 32.2 ml/min; Est GFR (Non-African American) 22.4; Magnesium 2.2 mg/dl (1.8-2.4); Potassium 4.3 mmol/L (3.5-5.1)
[2020-08-11] MEDS ORDERED: INSULIN GLARGINE SOLOSTAR 100 UNITS/ML 3 ML PEN SQ SCH (09:00)
[2020-08-11] MEDS: INSULIN ASPART 100 UNITS/ML 3 ML PEN SC SCH ×4 (09:00→20:29)
[2020-08-11] MEDS: INSULIN GLARGINE SOLOSTAR 100 UNITS/ML 3 ML PEN SQ SCH ×2 (09:00→21:12)
[2020-08-11] MEDS: GABAPENTIN 100 MG CAP PO SCH ×3 (09:06→17:58)
[2020-08-11] MEDS: CHOLECALCIFEROL 1,000 UNITS 25 MCG TAB PO SCH (09:07)
[2020-08-11] MEDS: ASPIRIN 81 MG ECTAB PO SCH (09:07)
[2020-08-11] MEDS: ATORVASTATIN 40 MG TAB PO SCH (09:07)
[2020-08-11] MEDS: FLUTICASONE/VILANTEROL 100/25MCG 14 PUFFS/INHALER INH SCH (09:07)
[2020-08-11] MEDS: guaiFENesin 600 MG TABCR PO SCH ×2 (09:08→20:28)
[2020-08-11] MEDS: METOPROLOL SUCC 50MG EXT REL TAB PO SCH ×2 (09:08→20:27)
[2020-08-11] MEDS: TORSEMIDE 10 MG TAB PO SCH (09:09)
[2020-08-11] MEDS: PANTOprazole 40 MG TAB PO SCH (09:09)
--- NOTE | 2020-08-11 09:40 | Nephrology Progress Note ---
Date of Service August 11, 2020 Assessment & Plan (1) Acute renal failure superimposed on stage 4 chronic kidney disease: His renal function was at baseline when he presented. Peaked at 4.1 on 08/08 likely due to a combination of factors including labile blood pressure, heart arrhythmias, Covid infection. Pt report of gross hematuria 08/08 but urine w/o blood or change in chronic profile (proteinuria, glucosuria). Creatinine down to 2.8 today which is improving Continue to hold VENKATA inhibitor Daily basic metabolic panel Strict I's and O's very important for his care; low threshold for bladder scans (2) Chronic systolic (congestive) heart failure: No evidence of exacerbation at this time. Cardiology following. EF 30 to 35%. Torsemide resumed Ordered less than 2 g daily sodium diet and 1.5 L fluid limit Team assistance appreciated with daily standing weights > wt has been stable even w/o torsemide (3) Labile blood pressure: Symptomatic and with a fall 08/07. Blood pressure stable today. Currently on obligate doubled dose of beta-blockade. multiple meds on hold as well. Continue current medications and observation as well as fall precautions (4) COVID-19: Supportive care and monitoring for change in status Admission and Anticipated Discharge Date Admission Date: August 05, 2020 Subjective Seen in follow-up for acute kidney injury. He feels better today. No shortness of breath. Has mild leg swelling. He is right big toe is painful due to injury sustained after fall few days ago. Review of Systems Review of Systems: All systems reviewed & are unremarkable except as noted in HPI & below Physical Exam Physical Exam: General exam: Appears comfortable, no acute distress HEENT: Pupils are equal and reactive to light Neck: No JVD, neck is supple trachea is midline Respiratory system: Clear breath sounds bilaterally. Gastrointestinal: Abdomen is soft, non distended, non tender, bowel sounds are present CVS: Regular rate and rhythm. No murmurs, rubs or gallops Musculoskeletal: No joint or muscle tenderness Extremities: Non tender, 1+ edema, peripheral pulses are present Neuro: Oriented, no tremors, no focal neurological deficits Skin: No rashes Results & Data ([facility]) Vital Signs (Past 12 Hours) Vital Signs Temp Pulse Pulse Resp BP Pulse Ox Pulse Ox 08/11/20 08:00 74 08/11/20 07:17 36.7 C 72 18 145/79 H 97 08/11/20 03:21 36.8 C 62 19 156/91 H 99 08/11/20 01:00 95 08/10/20 22:45 36.8 C 74 20 157/85 H 97 Laboratory Results 08/11/20 06:54
[2020-08-11] MEDS ORDERED: WARFARIN SOD 7.5 MG TAB PO SCH (16:00)
[2020-08-11] MEDS ORDERED: DEXTROSE 50% 50 ML SYRINGE IV PRN (16:30)
[2020-08-11] MEDS ORDERED: GLUCOSE 10 TABS/TUBE PO PRN (16:30)
[2020-08-11] MEDS ORDERED: GLUCAGON FOR INJ 1 MG VIAL IM PRN (16:30)
[2020-08-11] MEDS ORDERED: GLUCOSE 40% GEL 15 GM TUBE PO PRN (16:30)
[2020-08-11] MEDS ORDERED: CARBOHYDRATES FOR HYPOGLYCEMIA PO PRN (16:30)
--- NOTE | 2020-08-11 19:33 | Hospitalist Progress Note ---
Date of Service August 11, 2020 Assessment & Plan (1) COVID-19: COVID 19 Infection CXR: Persistent cardiomegaly. No evidence of focal pulmonary consolidation GI symptoms resolved Continue supportive care Saturating well on room air Nonsustained V. tach: Chronic atrial fibrillation Continue metoprolol 100 mg twice daily Appreciate cardiology input Monitor INR:2.5>1.8>1.5 We will increase Coumadin to 7.5 mg daily Acute renal failure on CKD stage IV: Cr: 2.98>4.07> 3.53>3.25>2.81 Hold lisinopril Avoid nephrotoxic stable Appreciate nephrology Input Chronic systolic heart failure S/P AICD Continue Torsemide Monitor I/Os, daily weight Right Great Toe fracture Secondary to fall Foot X ray:Equivocal acute nondisplaced fracture of the distal phalanx of the right first toe Appreciate Orthopedics Input WBAT Post operative boot for ambulation Hypotension BP Variable Orthostatics negative Hydralazine, isosorbide, lisinopril held for now Monitor BP ? Hematuria UA showed no microscopic hematuria Supratherapeutic INR--Resolved Monitor INR Generalized weakness fatigue Due to COVID-19 illness PT OT as able DM II HbA1c 11.1 Continue Insulin therapy Monitor BGs Hypoglycemic episode noted Glycemic pharmacy on board H/O COPD H/O ARPIT Continue home inhalers DVT Px: Coumadin CODE STATUS: Full code Disposition: Expected to be discharged home when medically stable Admission and Anticipated Discharge Date Admission Date: August 05, 2020 Subjective Patient is seen and examined at bedside States feeling better today Leg edema slowly improving Denies dizziness today Minimal toe pain Offers no other complaints Denies chest pain, dyspnea, abdominal pain Review of Systems Review of Systems: All systems reviewed & are unremarkable except as noted in HPI & below Physical Exam Physical Exam: Physical Exam: Vitals signs as noted above General Appearance:Obese, no apparent distress Head: normocephalic, Atraumatic Eyes: normal inspection, EOMI Neck: supple, Trachea midline Respiratory/Chest: Decreased breath sounds, CTA Cardiovascular: S1, S2, + murmur Abdomen/GI:Soft, Non tender, Bowel sounds present Extremities/Musculoskeletal:normal inspection, 1-2+ B/L LE edema improving Neurologic/Psych:AAOX3, grossly no focal neurological deficits, Right great toe tender Skin: normal color, warm Results & Data Results & Data ([facility]) Vital Signs (Past 12 Hours) Vital Signs Temp Pulse Pulse Resp BP Pulse Ox 08/11/20 16:47 36.6 C 57 L 18 176/93 H 97 08/11/20 16:00 81 08/11/20 11:40 37.0 C 71 18 142/85 H 96 08/11/20 08:00 74 Laboratory Results BMP 08/11/20 06:54 Sodium 144 Potassium 4.3 Chloride 114 H Carbon Dioxide 24 BUN 50 H Creatinine 2.81 H D Glucose 100 H Calcium 9.4
[2020-08-11] MEDS: ROSUVASTATIN CALCIUM 20 MG TAB PO SCH (20:26)
[2020-08-11] MEDS: BACLOFEN 10 MG TAB PO SCH (20:28)
[2020-08-12 06:22] LABS: INR 1.4 (0.9-1.1); Prothrombin Time 13.7 Seconds (9.0-12.0)
[2020-08-12 06:44] LABS: BUN Creatinine Ratio 16.9 (10-20); Calcium 9.2 mg/dl (8.5-10.1); Creatinine Clr Calc Pharmacy 32.7 ml/min; Est GFR (African American) 26.6; Magnesium 2.1 mg/dl (1.8-2.4)
[2020-08-12] MEDS: INSULIN ASPART 100 UNITS/ML 3 ML PEN SC SCH ×5 (08:04→20:53)
[2020-08-12] MEDS: INSULIN GLARGINE SOLOSTAR 100 UNITS/ML 3 ML PEN SQ SCH ×2 (09:00→20:52)
[2020-08-12] MEDS: ATORVASTATIN 40 MG TAB PO SCH (09:35)
[2020-08-12] MEDS: CHOLECALCIFEROL 1,000 UNITS 25 MCG TAB PO SCH (09:35)
[2020-08-12] MEDS: METOPROLOL SUCC 50MG EXT REL TAB PO SCH ×2 (09:35→20:50)
[2020-08-12] MEDS: TORSEMIDE 10 MG TAB PO SCH (09:35)
[2020-08-12] MEDS: ASPIRIN 81 MG ECTAB PO SCH (09:36)
[2020-08-12] MEDS: FLUTICASONE/VILANTEROL 100/25MCG 14 PUFFS/INHALER INH SCH (09:36)
[2020-08-12] MEDS: guaiFENesin 600 MG TABCR PO SCH ×2 (09:37→20:50)
[2020-08-12] MEDS: PANTOprazole 40 MG TAB PO SCH (09:38)
[2020-08-12] MEDS: GABAPENTIN 100 MG CAP PO SCH ×3 (09:40→17:28)
--- NOTE | 2020-08-12 09:55 | Pharmacy Report ---
Pharmacy Glycemic Short Note 2 - Date of Service August 12, 2020 - Glycemic Short BSG Results (Last 24 hours): 08/11/20 08/11/20 08/11/20 11:38 16:15 16:17 Glucose POC Glucose 181 H 64 L* 64 L* 08/11/20 08/11/20 08/11/20 16:19 16:46 20:19 Glucose POC Glucose 65 L* 75 73 08/12/20 08/12/20 05:27 07:25 Glucose 91 POC Glucose 97 OUTPATIENT ANTIDIABETIC REGIMEN: * Lantus 25 units bid * Humalog 5 units with breakfast, 25 units with lunch and dinner and 15 units for high carb snack * A1c: 11.1% (08/05/20) ASSESSMENT: 08/12: * Mr. Delarosa received a total of 113 units of insulin yesterday * 35 units basal + 78 units bolus * BSGs were: [id number] mg/dL * Patient had an episode of asymptomatic hypoglycemia at dinner last night when he was 64 mg/dL but improved to 75 mg/dL with 15 g of CHO * Likely due to Novolog stacking * Fasting BSG was 97 mg/dL * Will decrease Lantus dose today * Continue with tighter carb ratio with breakfast only, loosen carb ratio with lunch and dinner, HS CF and CR both loosened as well 08/10: * Patient received total of 96 units of insulin yesterday, of which 40 units were basal insulin * Fasting BSG 139 mg/dL - continue with basal scale at HS * Lunch BSG trending upward, will tighten CR 08/09: * BSGs yesterday of 221, 254, 157, and 138 mg/dL * Received 102 units of insulin (45 units of which were basal) * Fasting BSG of 61 mg/dL this morning * Will switch back to BID Lantus dosing per outpatient regimen and in light of hypoglycemia this morning * 25 units SC this morning, will utilize scale this evening 08/08: * Pt received total of 83 units of insulin yesterday: 45 units basal and 38 units bolus. * Fasting BSG today was 221 mg/dl. Not clear why and this maybe an error. Continued current Lantus dose. * Pt's s.creatinine further increased today to 4.07 mg/dl. Renal impairment may result in insulin accumulation. * Tightened Novolog parameters due to consistently elevated BSG since yesterday. 08/06 * BSGs yesterday elevated at 301, 326, 305, 278, and 269 mg/dL * Patient received 88 units of insulin (40 units of lantus, 44 units of prandial/correctional SC bolus, and 4 units of IV regular insulin) * Fasting BSG of 170 mg/dL this morning - will continue lantus 40 units daily * Lunch BSG of 378 mg/dL - > will give one-time IV insulin bolus and tighten car b ratio further 08/05 * 65yo T2DM male known to pharmacy from previous admissions/glycemic consults. * Typically, patient requires much less insulin for admission as compared to outpatient dosing. * No steroids ordered for covid+ * Will utilize similar dosing per previous admissions and titrate based on BSG trends. PLAN FOR INPATIENT GLYCEMIC CONTROL: * Basal insulin - decrease Lantus * Lantus 15 units SC x 1 this AM * Lantus 10-15 units SC HS (see eMAR for more details) * Bolus insulin * NovoLog per scale ACHS or Q6hrs while NPO * Goal Range: Low 100 mg/dL - High 140 mg/dL * Breakfast: Correction Factor = 10 & Carb Ratio = 2 * Lunch/Dinner: Correction Factor = 10 & Carb Ratio = 2.5 * Bedtime: Correction Factor = 30 & Carb Ratio = 10 PLAN FOR DISCHARGE: * HbA1c of 11.1% demonstrates poor outpatient glycemic control * Outpatient basal insulin recently changed from Lantus 70 units daily to Lantus 25 units SQ BID - this seems reasonable at this point. * At this point based on inpatient needs, seems reasonable to increase scheduled dose of Humalog with breakfast from 5 to 15 units * Will continue to follow inpatient insulin needs and make changes as appropriate * Patient met with DM educator - patient reports that he would like his insulin regimen typed up on discharge so that he can follow changes. Will try and coordinate for discharge
[2020-08-12] MEDS: WARFARIN SOD 10 MG TAB PO SCH (17:28)
--- NOTE | 2020-08-12 18:33 | Hospitalist Progress Note ---
Date of Service August 12, 2020 Assessment & Plan (1) COVID-19: COVID 19 Infection CXR: Persistent cardiomegaly. No evidence of focal pulmonary consolidation GI symptoms resolved Continue supportive care Saturating well on room air Nonsustained V. tach: Chronic atrial fibrillation Continue metoprolol 100 mg twice daily Appreciate cardiology input Monitor INR:2.5>1.8>1.4 We will increase Coumadin to 10 mg daily Acute renal failure on CKD stage IV: Cr: 2.98>4.07> 3.53>3.25>2.81>2.7 Hold lisinopril Avoid nephrotoxic stable Appreciate nephrology Input Chronic systolic heart failure S/P AICD Continue Torsemide Monitor I/Os, daily weight Right Great Toe fracture Secondary to fall Foot X ray:Equivocal acute nondisplaced fracture of the distal phalanx of the right first toe Appreciate Orthopedics Input WBAT Post operative boot for ambulation Hypotension BP Variable Orthostatics negative Hydralazine, isosorbide, lisinopril held for now Monitor BP ? Hematuria UA showed no microscopic hematuria Supratherapeutic INR--Resolved Monitor INR Generalized weakness fatigue Due to COVID-19 illness PT OT as able DM II HbA1c 11.1 Continue Insulin therapy Monitor BGs Hypoglycemic episode noted Glycemic pharmacy on board H/O COPD H/O ARPIT Continue home inhalers DVT Px: Coumadin CODE STATUS: Full code Disposition: Expected to be discharged home when medically stable Admission and Anticipated Discharge Date Admission Date: August 05, 2020 Subjective Patient is seen and examined at bedside Leg edema, renal function continues to improve No new complaints Denies any dizziness today No significant toe pain Denies chest pain, dyspnea, abdominal pain Review of Systems Review of Systems: All systems reviewed & are unremarkable except as noted in HPI & below Physical Exam Physical Exam: Physical Exam: Vitals signs as noted above General Appearance:Obese, no apparent distress Head: normocephalic, Atraumatic Eyes: normal inspection, EOMI Neck: supple, Trachea midline Respiratory/Chest: Decreased breath sounds, CTA Cardiovascular: S1, S2, + murmur Abdomen/GI:Soft, Non tender, Bowel sounds present Extremities/Musculoskeletal:normal inspection, 1+ B/L LE edema improving Neurologic/Psych:AAOX3, grossly no focal neurological deficits, Right great toe tender Skin: normal color, warm Results & Data Results & Data ([facility]) Vital Signs (Past 12 Hours) Vital Signs Temp Pulse Pulse Pulse Resp BP BP 08/12/20 16:00 74 08/12/20 15:36 37.0 C 80 18 153/97 H 08/12/20 10:56 36.9 C 73 19 145/89 H 08/12/20 08:00 72 08/12/20 07:27 36.7 C 69 20 144/76 H Pulse Ox 08/12/20 16:00 08/12/20 15:36 97 08/12/20 10:56 97 08/12/20 08:00 08/12/20 07:27 94 Laboratory Results BMP 08/12/20 05:27 Sodium 145 Potassium 4.0 Chloride 114 H Carbon Dioxide 25 BUN 47 H Creatinine 2.75 H Glucose 91 Calcium 9.2
[2020-08-12] MEDS: BACLOFEN 10 MG TAB PO SCH (20:50)
[2020-08-12] MEDS: ROSUVASTATIN CALCIUM 20 MG TAB PO SCH (20:50)
[2020-08-13 08:27] LABS: Hematocrit (blood only) 34.3 % (42-52); Hemoglobin 11.5 g/dL (14.0-18.0); Mean Corpuscular Hemoglobin 27.7 pg (25-34); Mean Corpuscular Hgb Conc 33.5 g/dL (32-36); Mean Corpuscular Volume 82.7 fL (80-100); Mean Platelet Volume 9.9 fL (7.4-10.4); Platelet Count 206 K/uL (130-400); RDW Coefficient of Variation 15.8 % (11.5-14.5); RDW Standard Deviation 47.6 fL (36.4-46.3); Red Blood Count 4.15 M/uL (4.7-6.1)
[2020-08-13] MEDS: METOPROLOL SUCC 50MG EXT REL TAB PO SCH ×2 (08:33→20:44)
[2020-08-13] MEDS: INSULIN ASPART 100 UNITS/ML 3 ML PEN SC SCH ×4 (08:33→20:46)
[2020-08-13] MEDS: TORSEMIDE 10 MG TAB PO SCH (08:34)
[2020-08-13] MEDS: PANTOprazole 40 MG TAB PO SCH (08:34)
[2020-08-13] MEDS: GABAPENTIN 100 MG CAP PO SCH ×3 (08:34→16:28)
[2020-08-13] MEDS: CHOLECALCIFEROL 1,000 UNITS 25 MCG TAB PO SCH (08:34)
[2020-08-13] MEDS: ATORVASTATIN 40 MG TAB PO SCH (08:35)
[2020-08-13] MEDS: FLUTICASONE/VILANTEROL 100/25MCG 14 PUFFS/INHALER INH SCH (08:35)
[2020-08-13] MEDS: ASPIRIN 81 MG ECTAB PO SCH (08:35)
[2020-08-13] MEDS: guaiFENesin 600 MG TABCR PO SCH ×2 (08:35→20:43)
[2020-08-13] MEDS: INSULIN GLARGINE SOLOSTAR 100 UNITS/ML 3 ML PEN SQ SCH ×2 (08:36→21:32)
[2020-08-13 08:39] LABS: INR 1.5 (0.9-1.1); Prothrombin Time 14.6 Seconds (9.0-12.0)
[2020-08-13 09:17] LABS: BUN Creatinine Ratio 16.7 (10-20); Calcium 9.5 mg/dl (8.5-10.1); Creatinine Clr Calc Pharmacy 34.2 ml/min; Est GFR (African American) 28.1; Est GFR (Non-African American) 24.3
[2020-08-13] MEDS ORDERED: PHARMACY GLYCEMIC MGMT CONSULT PRN (12:23)
--- NOTE | 2020-08-13 14:32 | XRay Report ---
XR chest 1V portable HISTORY: 65 years-old Male sob acute shortness of breath COMPARISON: 08/09/2020 TECHNIQUE: Portable AP view of the chest FINDINGS: Cardiac silhouette is enlarged. Left subclavian pacer/AICD. No pneumothorax, pleural effusion, airspa ce consolidation or overt pulmonary edema. Bones of the chest appear grossly intact. IMPRESSION: Cardiomegaly without acute process. ACT 112: Negative or not required by law. The above report was generated using voice recognition software. It may contain grammatical, syntax o r spelling errors. Electronically signed by: Barry Go M.D. 08/13/2020 2:31 PM
[2020-08-13] MEDS: WARFARIN SOD 10 MG TAB PO SCH (16:28)
--- NOTE | 2020-08-13 16:57 | Hospitalist Progress Note ---
Date of Service August 13, 2020 Assessment & Plan (1) COVID-19: COVID 19 Infection CXR: Persistent cardiomegaly. No evidence of focal pulmonary consolidation GI symptoms resolved Continue supportive care Saturating well on room air Repeat CXR:Cardiomegaly without acute process. Nonsustained V. tach: Chronic atrial fibrillation Continue metoprolol 100 mg twice daily Appreciate cardiology input Monitor INR:2.5>1.8>1.5 Continue Coumadin to 10 mg today Acute renal failure on CKD stage IV: Cr: 2.9>4.0> 3.5>3.2>2.8>2.7>2.6 Hold lisinopril Avoid nephrotoxic stable Appreciate nephrology Input Plan to hold off lisinopril upon discharge as well Needs follow-up with nephrology upon discharge Chronic systolic heart failure S/P AICD Continue Torsemide at current dose Monitor I/Os, daily weight Plan to resume isosorbide at lower dose (5mg TID) if BP tolerates Right Great Toe fracture Secondary to fall Foot X ray:Equivocal acute nondisplaced fracture of the distal phalanx of the right first toe Appreciate Orthopedics Input WBAT Post operative boot for ambulation Hypotension BP Variable Orthostatics negative Hydralazine, Lisinopril discontinued Monitor BP ? Hematuria UA showed no microscopic hematuria Supratherapeutic INR--Resolved Monitor INR Generalized weakness fatigue Due to COVID-19 illness PT OT as able DM II HbA1c 11.1 Continue Insulin therapy Monitor BGs Hypoglycemic episode noted Glycemic pharmacy on board H/O COPD H/O ARPIT Continue home inhalers DVT Px: Coumadin CODE STATUS: Full code Disposition: Expected to be discharged home when medically stable Admission and Anticipated Discharge Date Admission Date: August 05, 2020 Subjective Patient is seen and examined at bedside Sitting in chair comfortably No significant toe pain CXR today showed no acute process Decreased discussed with nephrology today Renal function better Denies chest pain, dyspnea, abdominal pain, dizziness Review of Systems Review of Systems: All systems reviewed & are unremarkable except as noted in HPI & below Physical Exam Physical Exam: Physical Exam: Vitals signs as noted above General Appearance:Obese, no apparent distress Head: normocephalic, Atraumatic Eyes: normal inspection, EOMI Neck: supple, Trachea midline Respiratory/Chest: Decreased breath sounds, CTA Cardiovascular: S1, S2, + murmur Abdomen/GI:Soft, Non tender, Bowel sounds present Extremities/Musculoskeletal:normal inspection, 1+ B/L LE edema improved Neurologic/Psych:AAOX3, grossly no focal neurological deficits, Right great toe tender Skin: normal color, warm Results & Data Results & Data ([facility]) Vital Signs (Past 12 Hours) Vital Signs Temp Pulse Resp BP Pulse Ox 08/13/20 15:54 36.7 C 75 16 165/90 H 98 08/13/20 08:00 36.9 C 70 18 140/82 98 Laboratory Results Short CBC 08/13/20 Range/Units 07:24 WBC 6.90 (4.8-10.8) K/uL Hgb 11.5 L (14.0-18.0) g/dL Hct 34.3 L (42-52) % Plt Count 206 (130-400) K/uL BMP 08/13/20 07:24 Sodium 143 Potassium 4.0 Chloride 112 H Carbon Dioxide 24 BUN 44 H Creatinine 2.63 H Glucose 90 Calcium 9.5
[2020-08-13] MEDS ORDERED: ISOSORBIDE DINITRATE 5 MG TAB PO SCH (17:20)
[2020-08-13] MEDS: BACLOFEN 10 MG TAB PO SCH (20:43)
[2020-08-13] MEDS: ROSUVASTATIN CALCIUM 20 MG TAB PO SCH (20:45)
[2020-08-14 06:37] LABS: INR 1.9 (0.9-1.1); Prothrombin Time 18.2 Seconds (9.0-12.0)
[2020-08-14 06:57] LABS: BUN Creatinine Ratio 15.9 (10-20); Calcium 9.3 mg/dl (8.5-10.1); Creatinine Clr Calc Pharmacy 33.9 ml/min; Est GFR (African American) 27.9
[2020-08-14] MEDS: INSULIN ASPART 100 UNITS/ML 3 ML PEN SC SCH ×2 (08:35→12:30)
[2020-08-14] MEDS: INSULIN GLARGINE SOLOSTAR 100 UNITS/ML 3 ML PEN SQ SCH (08:37)
[2020-08-14] MEDS: GABAPENTIN 100 MG CAP PO SCH ×2 (08:47→12:30)
[2020-08-14] MEDS: CHOLECALCIFEROL 1,000 UNITS 25 MCG TAB PO SCH (08:48)
[2020-08-14] MEDS: guaiFENesin 600 MG TABCR PO SCH (08:48)
[2020-08-14] MEDS: TORSEMIDE 10 MG TAB PO SCH (08:48)
[2020-08-14] MEDS: ASPIRIN 81 MG ECTAB PO SCH (08:49)
[2020-08-14] MEDS: FLUTICASONE/VILANTEROL 100/25MCG 14 PUFFS/INHALER INH SCH (08:49)
[2020-08-14] MEDS: METOPROLOL SUCC 50MG EXT REL TAB PO SCH (08:49)
[2020-08-14] MEDS: ATORVASTATIN 40 MG TAB PO SCH (08:49)
[2020-08-14] MEDS: PANTOprazole 40 MG TAB PO SCH (08:50)
[2020-08-14] MEDS: ISOSORBIDE DINITRATE 10 MG TAB PO SCH ×2 (10:16→12:31)
--- NOTE | 2020-08-14 13:36 | Hospitalist Progress Note ---
Date of Service August 14, 2020 Assessment & Plan (1) COVID-19: COVID 19 Infection CXR: Persistent cardiomegaly. No evidence of focal pulmonary consolidation GI symptoms resolved Continue supportive care Repeat CXR:Cardiomegaly without acute process. Saturating well on room air Nonsustained V. tach: Chronic atrial fibrillation Continue metoprolol 100 mg twice daily Appreciate cardiology input Monitor INR:2.5>1.8>1.5>1.9 Continue Coumadin-Adjust dose as needed Acute renal failure on CKD stage IV: Cr: 2.9>4.0> 3.5>3.2>2.8>2.7>2.6 Hold lisinopril Avoid nephrotoxic stable Appreciate nephrology Input Plan to hold off lisinopril upon discharge as well Needs follow-up with nephrology upon discharge Chronic systolic heart failure S/P AICD Continue Torsemide at current dose Monitor I/Os, daily weight Plan to resume isosorbide at lower dose (10mg TID) if BP tolerates Right Great Toe fracture Secondary to fall Foot X ray:Equivocal acute nondisplaced fracture of the distal phalanx of the right first toe Appreciate Orthopedics Input WBAT Post operative boot for ambulation Needs follow-up with orthopedics upon discharge Hypotension BP Variable Orthostatics negative Hydralazine, Lisinopril discontinued Monitor BP ? Hematuria UA showed no microscopic hematuria Supratherapeutic INR--Resolved Monitor INR Generalized weakness fatigue Due to COVID-19 illness PT OT as able DM II HbA1c 11.1 Continue Insulin therapy Monitor BGs Hypoglycemic episode noted Glycemic pharmacy on board H/O COPD H/O ARPIT Continue home inhalers DVT Px: Coumadin CODE STATUS: Full code Disposition: Home Admission and Anticipated Discharge Date Admission Date: August 05, 2020 Subjective Patient is seen and examined at bedside States feeling well today Offers no complaints Denies chest pain, dyspnea, abdominal pain, dizziness Discussed with nephrology today Review of Systems Review of Systems: All systems reviewed & are unremarkable except as noted in HPI & below Physical Exam Physical Exam: Physical Exam: Vitals signs as noted above General Appearance:Obese, no apparent distress Head: normocephalic, Atraumatic Eyes: normal inspection, EOMI Neck: supple, Trachea midline Respiratory/Chest: Decreased breath sounds, CTA Cardiovascular: S1, S2, + murmur Abdomen/GI:Soft, Non tender, Bowel sounds present Extremities/Musculoskeletal:normal inspection, 1+ B/L LE edema improved Neurologic/Psych:AAOX3, grossly no focal neurological deficits, Right great toe tender Skin: normal color, warm Results & Data Results & Data ([facility]) Vital Signs (Past 12 Hours) Vital Signs Temp Pulse Pulse Resp BP Pulse Ox 08/14/20 11:35 36.5 C 73 20 127/76 95 08/14/20 07:56 36.9 C 67 20 162/90 H 96 08/14/20 07:29 67 08/14/20 03:11 36.9 C 66 17 151/[address] [facility] 08/14/20 05:55 Sodium 140 Potassium 4.0 Chloride 110 H Carbon Dioxide 26 BUN 42 H Creatinine 2.65 H Glucose 167 H Calcium 9.3
--- NOTE | 2020-08-14 15:47 | Discharge Summary ---
Date of Service August 14, 2020 Admission HPI Per Admitting Provider CHIEF COMPLAINT: Shortness of breath, COVID. HISTORY OF PRESENT ILLNESS: A 65-year-old male with past medical history significant for type 2 diabetes, hyperlipidemia, history of pancreatitis, gallstones, COPD mild , obstructive sleep apnea on CPAP with oxygen, mild persistent asthma, pulmonary nodules, chronic sinusitis, chronic systolic CHF, nonischemic cardiomyopathy, atrial fibrillation, history of left middle cerebral artery stroke, nonrheumatic aortic valve stenosis, hypertension, left bundle branch block, pulmonary hypertension, peripheral vascular disease, obesity, gastroparesis, history of noncompliance, status post AICD, history of chewing tobacco. Lives with his , presents with shortness of breath. The patient states since last couple of days, he is getting more short of breath, coughing up some phlegm. When he was coming to the hospital, he had some chest pain, but that got resolved now. Has lost sense of smell and taste for last 2 days, has severe headache in the back of the head. No blurred visions, no earache. Has some congested nose, mild sore throat. Appetite is okay. No nausea, no vomiting, no abdominal pain. Normal bowel and bladder movements. Feeling somewhat lightheaded, dizzy. The patient finished 2 doses of COVID vaccine, last dose was on 07/26/2020. He works at [employer] and three people recently got diagnosed with COVID. In the ER, the patient's COVID test came back as positive, but he was saturating fine on the room air. There is a long episode of V-tach in the ER. Currently resting comfortably and hemodynamically stable Admission Exam Per Admitting Provider PHYSICAL EXAMINATION: GENERAL: The patient is obese, not in acute distress. VITAL SIGNS: Temperature 37, pulse 103, respiratory rate 17, blood pressure 137/91, oxygen 95% on room air. HEENT: Pupils equal, round, and reactive to light. Oral mucosa moist. NECK: No JVD, no neck masses seen. CARDIOVASCULAR: S1, S2 heard. Regular rate and rhythm, no murmur, no gallop. RESPIRATORY SYSTEM: Normal AP diameter. No accessory muscle use. No wheezing, no crackles. ABDOMEN: Soft, bowel sounds present, nontender. No distention. CENTRAL NERVOUS SYSTEM: Cranial nerves II through XII grossly intact, nonfocal. EXTREMITIES: Trace pedal edema, no erythema seen. Principal Diagnosis COVID 19 Infection Nonsustained ventricular tachycardia Acute kidney injury Right Great Toe fracture Hypotension Discharge Data Allergies Allergy/AdvReac Type Severity Reaction Status Date / Time No Known Allergies Allergy Verified 08/05/20 02:39 Consultations 08/05/20 03:56 ED Decision to Admit Stat 08/05/20 08:00 Consult Cardiology Routine 08/07/20 17:21 Consult Nephrology Routine 08/09/20 17:59 Consult Orthopedic Surgery Routine Procedures Performed CXR: Persistent cardiomegaly. No evidence of focal pulmonary consolidation Foot X ray:Equivocal acute nondisplaced fracture of the distal phalanx of the right first toe Ordered Studies 08/07/20 17:20 CT head/brain wo con Routine Diabetes Follow up Diabetes Follow-up Needed for HgbA1c >9% Hospital Course (1) COVID-19: COVID 19 Infection CXR: Persistent cardiomegaly. No evidence of focal pulmonary consolidation GI symptoms resolved Continue supportive care Repeat CXR:Cardiomegaly without acute process. Saturating well on room air Nonsustained V. tach: Chronic atrial fibrillation Continue metoprolol 100 mg twice daily Appreciate cardiology input Monitor INR:2.5>1.8>1.5>1.9 Continue Coumadin-Adjust dose as needed Acute renal failure on CKD stage IV: Cr: 2.9>4.0> 3.5>3.2>2.8>2.7>2.6 Hold lisinopril Avoid nephrotoxic stable Appreciate nephrology Input Plan to hold off lisinopril upon discharge as well Needs follow-up with nephrology upon discharge Chronic systolic heart failure S/P AICD Continue Torsemide at current dose Monitor I/Os, daily weight Plan to resume isosorbide at lower dose (10mg TID) if BP tolerates Right Great Toe fracture Secondary to fall Foot X ray:Equivocal acute nondisplaced fracture of the distal phalanx of the right first toe Appreciate Orthopedics Input WBAT Post operative boot for ambulation Needs follow-up with orthopedics upon discharge Hypotension BP Variable Orthostatics negative Hydralazine, Lisinopril discontinued Monitor BP ? Hematuria UA showed no microscopic hematuria Supratherapeutic INR--Resolved Monitor INR Generalized weakness fatigue Due to COVID-19 illness PT OT as able DM II HbA1c 11.1 Continue Insulin therapy Monitor BGs Hypoglycemic episode noted Glycemic pharmacy on board H/O COPD H/O ARPIT Continue home inhalers DVT Px: Coumadin CODE STATUS: Full code Disposition: Home Total Time Total Time Spent Total Time Spent (In Minutes): 41 minutes Total Time Includes: Examination of the Patient, Discharge Planning, Medication Reconciliation, Communication With Other Providers and Other Discharge Plan Discharge Items Patient Disposition: Home - Self-Care Reason For Visit: HARD TO BREATHE Discharge Diagnosis: COVID 19 Infection Nonsustained ventricular tachycardia Acute kidney injury Right Great Toe fracture Hypotension Activity: Per Instructions section Exercise/Sports: Gradually increase as tolerated Non-emergency contact: Primary Care Provider, [employer] Worker and [employer] Counselor Call non-emergency contact if: you have any medication questions, your symptoms worsen, your pain is concerning for you and you have a fever Follow-up/Referrals: Marielena Bar PA-C [Physician Pig Machine Crane Operator] - (Date & Time 08/31/2020 2:30 PM Provider Marielena Bar PA-C Department Nephrology [facility] ) Mirlande Melton MD [Primary Care Provider] - ( Date & Time 08/17/2020 1:40 PM Provider Stella Gaines MD Department Internal Medicine [facility] PLEASE NOTE THAT THIS IS A TELEHEALTH APPOINTMENT. PLEASE FOLLOW THE INSTRUCTIONS PROVIDED IN YOUR EMAIL. IF YOU HAVE ANY QUESTIONS REGARDING THIS APPOINTMENT, PLEASE CALL ) Diet: Carb Consistent or DM2, Heart Healthy and Low Sodium (2gm) Fluids: 1800ml (7 cups) Addtl Attending Provider Instructions: Follow-up with your primary care physician Dr. Adams Pickett in 1 week as advised Follow-up with your agency service coordinator in 2 weeks Follow-up with your manager of merchandising Dr. Graves in 4-6 weeks Follow-up with your orthopedic surgeon Dr.Bradley Rosario in 1-2 weeks for for further assessment of your toe fracture Seek immediate medical attention if your symptoms reoccur or worsen Pending Studies at Discharge: No Stand-Alone Forms: My Interm[employer], Smoking Cessation Medications and DC Order Prescriptions: New guaifenesin [Mucinex] 600 mg Tablet Extended Release 12hr 600 mg PO Q12 PRN (Reason: Cough) Qty: 10 RF: 0 Continued aspirin 81 mg Tablet,Delayed Release (Dr/Ec) 81 mg PO QAM RF: 0 pantoprazole [Protonix] 40 mg Tablet,Delayed Release (Dr/Ec) 40 mg PO QAM RF: 0 rosuvastatin [Crestor] 40 mg Tablet 40 mg PO HS RF: 0 cholecalciferol (vitamin D3) [Vitamin D3] 2,000 unit Capsule 2,000 unit PO QAM RF: 0 Breo Ellipta 100-25 mcg/dose Blister With Device 1 inh INHALATION QAM RF: 0 torsemide 10 mg tablet 10 mg PO QAM RF: 0 gabapentin 100 mg Capsule 100 mg PO TIDM RF: 0 ipratropium-albuterol 0.5 mg-3 mg(2.5 mg base)/3 mL Solution For Nebulization 3 ml INHALATION QID PRN (Reason: Shortness Of Breath Or Wheezing) RF: 0 albuterol sulfate [ProAir HFA] 90 mcg/actuation Hfa Aerosol Inhaler 2 puff INHALATION Q4H PRN (Reason: Shortness Of Breath Or Wheezing) RF: 0 fluticasone propionate [Flonase Allergy Relief] 50 mcg/actuation [place],Suspension 2 spray INTRANASAL DAILY PRN (Reason: Nasal Congestion) RF: 0 insulin lispro [Humalog KwikPen Insulin] 100 unit/mL Insulin Pen See Rx Instructions .ROUTE .COMPLEX RF: 0 Vitron-C 65 mg iron- 125 mg Tablet,Delayed Release (Dr/Ec) 1 tab PO BID RF: 0 Lantus Solostar U-100 Insulin 100 unit/mL (3 mL) insulin pen 25 unit SUBCUT BID RF: 0 warfarin 5 mg tablet 10 mg PO 3XWK RF: 0 atorvastatin 80 mg tablet 80 mg PO DAILY RF: 0 baclofen 10 mg tablet 10 mg PO HS RF: 0 warfarin 5 mg tablet 5 mg PO 4XWK RF: 0 Changed isosorbide dinitrate 10 mg Tablet 10 mg PO TIDM Qty: 0 RF: 0 metoprolol succinate [Toprol XL] 100 mg Tablet Extended Release 24 Hr 100 mg PO BID Qty: 60 RF: 1 Discontinued hydralazine 25 mg Tablet 75 mg PO TID RF: 0 lisinopril [Zestril] 5 mg Tablet 10 mg PO DAILY Qty: 60 RF: 0 Discharge Orders: Discharge Order (Routine); Ordered 08/14/20 Ordered By: Aj Ames Admission Data Admit Date/Time: 08/05/20 04:57 Attending Provider: Aj Ames Admit Provider: Yovanny Desai Primary Care Provider: Mirlande Melton Other Providers: Yovanny Desai ; Gerald Mittal ; Parish Sethi ; Pillo Graves ; Nirav Wild ; Christian Zurita ; Billy Chery ; Isabel Bergman ; Roxann Pulido ; Lillie Harmon ; Kaveh Dunn ; Kathleen Bosch ; Cecilio Euceda ; Emiliano Rosario ; Christopher Rolon ; Shobha Jenkins ; Nirav Barbour ; Alix Hernadez ; Tereso Mckenzie ; Maykel Caraballo ; Billy Elias ; Sheng Cantrell. ; Maykel Henriquez ; Christian Burden ; Huber Castillo ; Bakari Nuñez ; Forrest Arcos ; Alix Garcia ; Steve Wright ; Tyler Delaney ; Cami Brito ; Arpan Paul ; Mignon Ellis Other Interventions: Discharge Summary Assessment (RN) Last Done: 08/14/20 14:38
== END 2020-08-14 16:15 | disposition home or self-care (01) | DRG 178 ==
LOC: ED 00:38 → 2S 04:57 → SUATTDRO 04:57 → 2S 05:23

== ENCOUNTER 2020-09-17 03:00 | Inpatient (IN) ==
[2020-09-17] MEDS ORDERED: FUROSEMIDE 40 MG/4 ML VIAL IV STA (03:11)
[2020-09-17] MEDS ORDERED: dexAMETHasone**PF** 10 MG/ML VIAL IV ONE (03:11)
[2020-09-17] MEDS ORDERED: LEVALBUTEROL 0.31MG/3 ML VIAL NEB STA ×2 (03:11→04:14)
[2020-09-17] MEDS ORDERED: MAGNESIUM SULFATE / D5W 1 GM/100 ML BAG IV STA (03:12)
[2020-09-17] MEDS ORDERED: NITROGLYCERIN 2% OINTMENT 30GM TUBE EXT STA (03:17)
[2020-09-17] MEDS ORDERED: ASPIRIN CHEW 324 MG PO STA (03:17)
--- NOTE | 2020-09-17 03:28 | Emergency Department Note ---
Impression & Plan Acute renal failure superimposed on stage 4 chronic kidney disease, CHF (congestive heart failure), Non-ST elevation (NSTEMI) myocardial infarction ED Provider Note NAME: NIRANJAN VILLALTA AGE: 65 SEX: M : 1955 ARRIVES VIA: Ambulance INFORMANT: Patient, EMS ED PROVIDER(S): Winston Carr MD CHIEF COMPLAINT: SOB HPI: This is a 65-year-old male who has had a complicated medical history as of late. The patient has chronic kidney disease and was recently diagnosed with Covid approximately 1 month ago. He reports to the emergency department via EMS after complaining of shortness of breath over the past day that gradually worsened. He reports anytime he exerts himself he becomes extremely short of breath. He is also complaining of chest pain as well as abdominal pain. The patient was using his CPAP at home without relief of the shortness of breath. He has not taken any medications prior to arrival. EMS placed the patient on CPAP and brought the patient to the emergency department. Upon arrival to the emergency department the patient appears to be in acute distress and can only speak in 3 word sentences. ROS: See above HPI for pertinent positives & negatives. A total of 10 systems reviewed and were otherwise negative. PAST MEDICAL HISTORY: See Below PAST SURGICAL HISTORY: See Below FAMILY HISTORY: See Below SOCIAL HISTORY: See Below HOME MEDICATIONS: See Below ALLERGIES: See Below VITALS: See Below PHYSICAL EXAMINATION: VITAL SIGNS - Vital signs and nursing notes were reviewed. GENERAL - 65-year-old male appearing stated age who is acute distress. Speaks in 3 word sentences SKIN - Without rashes. HEAD - NC/AT. EYES - PERRL with EOMI bilaterally. Sclera anicteric. Palpebral conjunctiva pink and moist with no injection noted. EARS - No deformities of external structures noted on gross examination bilaterally. NOSE - Midline and without cyanosis. No epistaxis or purulent drainage noted. Septum midline without deviation or septal hematoma noted. MOUTH/OROPHARYNX - Without perioral cyanosis. Buccal mucosa pink and moist and without leukoplakia. Tongue midline with equal elevation of palate bilaterally. No tonsillar hypertrophy, erythema, or exudates noted. NECK - Neck with FROM. Supple to palpation. No nuchal rigidity. LUNGS - Chest wall symmetric without accessory muscle use, intercostals retractions, or central cyanosis. Normal vesicular breath sounds CTA B/L. No wheezes, rales, or rhonchi appreciated. CARDIAC - RRR with S1/S2. No murmur, rubs, or gallops appreciated. ABDOMEN - Abdominal contour without pulsations or visible masses. BS normoactive all four quadrants. No tenderness, palpable masses, hepatosplenomegaly, or ascites noted. EXTREMITIES - No clubbing or peripheral cyanosis. No pretibial edema present. +3/5 radial, posterior tibial, and dorsalis pedis pulses palpated throughout. +5/5 strength noted in UE/LE bilaterally. NEUROLOGIC - Cranial nerves II through XII grossly intact. Sensory intact to light touch throughout. Patellar reflexes +2/4. PSYCH - A&Ox3 and cooperates fully with examiner. Pt is very pleasant and interacts well with examiner. MEDICAL DECISION MAKING: Patient was seen and evaluated as above in room C9. Review was performed of nursing notes and vital signs. I did review pertinent previous visits and patient history. After obtaining a thorough history and physical examination the above work up was performed. This 65-year-old male who presents to the emergency department in acute distress. His EKG is an undetermined rhythm. He was given 324 mg of aspirin, Nitropaste, Lasix and immediately placed on BiPAP. The patient did not tolerate BiPAP and therefore was placed on high flow nasal cannula His heart rate did remarkably improve. He is positive for Covid. His INR is 1.8. Hemoglobin is 12.7 creatinine is 2.86. I did discuss the case with the hospitalist service who did agree to meet the patient. Patient is in agreement with the treatment plan. An order was placed for continuous cardiac monitoring. The monitor shows a rate of 94 with paced rhythm. The patient was evaluated during a period of high volume and high acuity during the global COVID-19 pandemic, and that diagnosis was suspected/considered upon their initial presentation. Their evaluation, treatment and testing was consistent with current guidelines for patients who present with complaints or symptoms that may be related to COVID-19. Patient was seen while provider was wearing PPE. Triage Nursing notes reviewed. Prior medical records reviewed Vital Signs: reviewed and remarkable for no significant abnormalities Differential diagnosis: Reactive airway disease, pneumonia, pneumothorax, COPD, CHF, infections, cardiac ischemia, pulmonary embolism, musculoskeletal, gastrointestinal, as well as other pathologies. ER treatment provided: See below Diagnostics interpreted by me: ECG: EKG shows an undetermined rhythm left axis deviation left bundle branch block QTC is 466 ventricular rate is 126 when compared to previous EKG an undetermined rhythm has taken over from the paced rhythm. Laboratory studies: As stated above and show below. Imaging studies: 1 view the chest was interpreted by me does not show any evidence of pneumonia congestion or pneumothorax. Consultation(s): Internal Medicine ED COURSE: Procedures: none PDMP:reviewed and no issues Critical Care: I have personally spent greater than 30 minutes of critical care time in the dir ect management of this patient. This includes bedside care, interpretation of diagnostic studies, and testing, discussion with consultants, patient, and family members, and other required patient management activities. This 30 minutes is in excess of all separately billable procedures. Past Med/Surg History Medical History Acute cerebrovascular accident Aortic stenosis Severe aortic stenosis vs pseudo aortic stenosis due to low output per cardio note from 12/2019 ECHO Asthma Atrial fibrillation on chronic anticoagulation CAD (coronary artery disease) "nonobstructive" Chronic anemia Chronic kidney disease STAGE 4-F/U DR HERNANDEZ Chronic systolic (congestive) heart failure EF around 30-34% COPD (chronic obstructive pulmonary disease) Diabetic neuropathy DM type 2 (diabetes mellitus, type 2) Dyslipidemia GERD (gastroesophageal reflux disease) History of multiple pulmonary nodules Hypertension LBBB (left bundle branch block) Nocturnal hypoxia on 2L NC O2 HS Nonischemic cardiomyopathy S/p BIV AICD in place Pulmonary HTN PVD (peripheral vascular disease) Sleep apnea BIPAP-OXYGEN 2L/MIN HS Stroke 12/18/19-[facility] ADMISSION-RESIDUAL EFFECTS SPECCH DIFFICULTY-SHORT TERM MEMORY Supratherapeutic INR Thrombocytopenia F/U PCP Surgical History H/O cardiac catheterization Non nonobstructive CAD on 2017 cardiac cath H/O total adrenalectomy LEFT 25 YRS AGO History of colonoscopy History of esophagogastroduodenoscopy (EGD) Presence of combination internal cardiac defibrillator (ICD) and pacemaker Family History Sister Diabetes Brother Diabetes Other Hypertension Lung cancer Social History Smoking Status: Never smoker Tobacco Type: Cigarettes Second Hand Exposure: No; Do You Dip or Chew Tobacco: Yes; Tobacco Cessation Education Requested by Patient: No Hx Alcohol Use: No Hx Substance Use: No Preferred Language: Romansh Communication Ability: Effective Visual Impairment: Limited Heel Cutter Required: No Beliefs That Will Affect Care: None marital status: Current Living Situation: Spouse current occupational status: retired 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 Other Information That Helps Us Care for You: No Feels Safe at Home: Yes Safety Concerns: Feels Safe At This Time Assistive Devices: CPAP, Glasses and Oxygen - Continuous Allergies Allergies Allergy/AdvReac Type Severity Reaction Status Date / Time No Known Allergies Allergy Verified 09/17/20 07:03 Home Meds Home Medications Medication Instructions Recorded Confirmed aspirin 81 mg PO QAM 02/05/18 09/17/20 cholecalciferol (vitamin D3) 2,000 unit PO QAM 02/05/18 09/17/20 [Vitamin D3] pantoprazole [Protonix] 40 mg PO QAM 02/05/18 09/17/20 gabapentin 100 mg PO TIDM 05/14/18 09/17/20 albuterol sulfate [ProAir HFA] 2 puff INHALATION Q4H PRN 08/01/18 09/17/20 fluticasone propionate [Flonase 2 spray INTRANASAL DAILY PRN 08/01/18 09/17/20 Allergy Relief] ipratropium-albuterol 3 ml INHALATION QID PRN 08/01/18 09/17/20 Vitron-C 1 tab PO BID 06/05/19 09/17/20 insulin lispro [Humalog KwikPen See Rx Instructions .ROUTE .COMPLEX 06/05/19 09/17/20 Insulin] Breo Ellipta 1 inh INHALATION QAM 03/02/20 09/17/20 torsemide 10 mg PO QAM 03/02/20 09/17/20 Lantus Solostar U-100 Insulin 25 unit SUBCUT BID 04/23/20 09/17/20 warfarin 10 mg PO UD 04/23/20 09/17/20 atorvastatin 80 mg PO DAILY 08/05/20 09/17/20 baclofen 10 mg PO HS 08/05/20 09/17/20 warfarin 5 mg PO UD 08/05/20 09/17/20 amlodipine 2.5 mg PO DAILY 09/17/20 09/17/20 atorvastatin 80 mg PO DAILY 09/17/20 09/17/20 furosemide [Lasix] 0 mg PO UD 09/17/20 09/17/20 hydralazine 75 mg PO TID 09/17/20 09/17/20 Previous Rx's Medication Instructions Recorded guaifenesin [Mucinex] 600 mg PO Q12 PRN #10 tab 08/14/20 isosorbide dinitrate 10 mg PO TIDM #0 tab 08/14/20 metoprolol succinate [Toprol XL] 100 mg PO BID #60 tab 08/14/20 Results & Data (ED) Vital Signs Vital Signs - 24 hr 09/17/20 03:20 09/17/20 03:30 09/17/20 03:34 Temperature Temperature Source Pulse Rate 125 H 113 H Pulse Rate [Apical] Pulse Rate from SpO2 Sensor 120 H 117 H Pulse Rhythm Respiratory Rate 33 H 32 H Respiratory Effort / Characteristics Non-Labored Respiratory Depth Normal Respiratory Pattern Tachypnea Blood Pressure Blood Pressure Mean Blood Pressure Position Pulse Oximetry 100 96 Oxygen Delivery Method Room Air Oxygen Flow Rate Fraction of Inspired Oxygen Sepsis Recent Fever Within 48 Hours Sepsis New/Unexplained Change in Mental Status Sepsis Action Taken by Nursing 09/17/20 03:39 09/17/20 03:40 09/17/20 03:41 Temperature 36.8 C Temperature Source Oral Pulse Rate 117 H 73 Pulse Rate [Apical] 117 H Pulse Rate from SpO2 Sensor Pulse Rhythm Respiratory Rate 22 30 H 28 H Respiratory Effort / Characteristics Spontaneous Labored Labored Respiratory Depth Respiratory Pattern Blood Pressure 176/128 H Blood Pressure Mean 144 Blood Pressure Position Lying Pulse Oximetry 96 80 L Oxygen Delivery Method High Flow Nasal Cannula Room Air Oxygen Flow Rate 30 Fraction of Inspired Oxygen 80 Sepsis Recent Fever Within 48 Hours No Sepsis New/Unexplained Change in Mental Status No Sepsis Action Taken by Nursing No Action Required 09/17/20 03:43 09/17/20 03:50 09/17/20 03:59 Temperature Temperature Source Pulse Rate Pulse Rate [Apical] Pulse Rate from SpO2 Sensor 112 H Pulse Rhythm Respiratory Rate 36 H Respiratory Effort / Characteristics Grunting Labored Respiratory Depth Respiratory Pattern Blood Pressure Blood Pressure Mean Blood Pressure Position Pulse Oximetry 80 L 99 Oxygen Delivery Method BiPAP Room Air Oxygen Flow Rate Fraction of Inspired Oxygen Sepsis Recent Fever Within 48 Hours Sepsis New/Unexplained Change in Mental Status Sepsis Action Taken by Nursing 09/17/20 04:00 09/17/20 04:01 09/17/20 04:02 Temperature Temperature Source Pulse Rate 105 H 99 H Pulse Rate [Apical] 108 H Pulse Rate from SpO2 Sensor 104 H 97 H Pulse Rhythm Respiratory Rate 31 H 30 H 20 Respiratory Effort / Characteristics Spontaneous Labored Respiratory Depth Respiratory Pattern Blood Pressure 167/128 H Blood Pressure Mean 141 Blood Pressure Position Pulse Oximetry 97 94 96 Oxygen Delivery Method High Flow Nasal Cannula Oxygen Flow Rate 35 Fraction of Inspired Oxygen 60 Sepsis Recent Fever Within 48 Hours Sepsis New/Unexplained Change in Mental Status Sepsis Action Taken by Nursing 09/17/20 04:10 09/17/20 04:11 09/17/20 04:13 Temperature Temperature Source Pulse Rate 106 H 93 H Pulse Rate [Apical] Pulse Rate from SpO2 Sensor 93 H 106 H Pulse Rhythm Respiratory Rate 29 H 30 H 29 H Respiratory Effort / Characteristics Labored Respiratory Depth Respiratory Pattern Blood Pressure 100/63 Blood Pressure Mean 75 Blood Pressure Position Pulse Oximetry 93 98 Oxygen Delivery Method Oxygen Flow Rate Fraction of Inspired Oxygen Sepsis Recent Fever Within 48 Hours Sepsis New/Unexplained Change in Mental Status Sepsis Action Taken by Nursing 09/17/20 04:15 09/17/20 04:16 09/17/20 04:17 Temperature Temperature Source Pulse Rate 97 H 108 H 103 H Pulse Rate [Apical] Pulse Rate from SpO2 Sensor 106 H 92 H 97 H Pulse Rhythm Irregular Respiratory Rate 25 H 25 H 26 H Respiratory Effort / Characteristics Respiratory Depth Respiratory Pattern Blood Pressure 128/107 H Blood Pressure Mean 114 Blood Pressure Position Pulse Oximetry 99 98 98 Oxygen Delivery Method Room Air Oxygen Flow Rate Fraction of Inspired Oxygen Sepsis Recent Fever Within 48 Hours Sepsis New/Unexplained Change in Mental Status Sepsis Action Taken by Nursing 09/17/20 04:30 09/17/20 04:45 09/17/20 05:00 Temperature Temperature Source Pulse Rate 103 H 95 H 99 H Pulse Rate [Apical] Pulse Rate from SpO2 Sensor 103 H 94 H 97 H Pulse Rhythm Respiratory Rate 27 H 24 23 Respiratory Effort / Characteristics Non-Labored Spontaneous Non-Labored Spontaneous Respiratory Depth Respiratory Pattern Blood Pressure 134/52 L 154/79 H 148/61 H Blood Pressure Mean 79 104 90 Blood Pressure Position Pulse Oximetry 98 98 84 L Oxygen Delivery Method Room Air Oxygen Flow Rate Fraction of Inspired Oxygen Sepsis Recent Fever Within 48 Hours Sepsis New/Unexplained Change in Mental Status Sepsis Action Taken by Nursing 09/17/20 05:15 09/17/20 05:30 09/17/20 05:31 Temperature Temperature Source Pulse Rate 94 H 95 H 96 H Pulse Rate [Apical] Pulse Rate from SpO2 Sensor 97 H 93 H 96 H Pulse Rhythm Respiratory Rate 29 H 29 H 28 H Respiratory Effort / Characteristics Non-Labored Spontaneous Respiratory Depth Respiratory Pattern Blood Pressure 156/78 H 121/57 L 102/71 Blood Pressure Mean 104 78 81 Blood Pressure Position Pulse Oximetry 98 97 97 Oxygen Delivery Method Nasal Cannula Oxygen Flow Rate 6 Fraction of Inspired Oxygen Sepsis Recent Fever Within 48 Hours Sepsis New/Unexplained Change in Mental Status Sepsis Action Taken by Nursing 09/17/20 05:34 09/17/20 05:45 09/17/20 06:00 Temperature Temperature Source Pulse Rate 102 H 89 97 H Pulse Rate [Apical] Pulse Rate from SpO2 Sensor 94 H 96 H 94 H Pulse Rhythm Respiratory Rate 23 28 H 25 H Respiratory Effort / Characteristics Non-Labored Spontaneous Accessory Muscle Use Respiratory Depth Respiratory Pattern Blood Pressure 121/57 L 134/105 H Blood Pressure Mean 78 114 Blood Pressure Position Pulse Oximetry 97 97 98 Oxygen Delivery Method Oxygen Flow Rate Fraction of Inspired Oxygen Sepsis Recent Fever Within 48 Hours Sepsis New/Unexplained Change in Mental Status Sepsis Action Taken by Nursing 09/17/20 06:08 09/17/20 06:15 09/17/20 06:20 Temperature Temperature Source Pulse Rate 108 H 117 H Pulse Rate [Apical] 78 Pulse Rate from SpO2 Sensor 102 H 109 H Pulse Rhythm Respiratory Rate 20 32 H 24 Respiratory Effort / Characteristics Non-Labored Spontaneous Labored Respiratory Depth Respiratory Pattern Blood Pressure 124/105 H Blood Pressure Mean 111 Blood Pressure Position Pulse Oximetry 96 97 97 Oxygen Delivery Method Nasal Cannula Nasal Cannula Oxygen Flow Rate 6 4 Fraction of Inspired Oxygen Sepsis Recent Fever Within 48 Hours Sepsis New/Unexplained Change in Mental Status Sepsis Action Taken by Nursing 09/17/20 06:30 09/17/20 06:31 09/17/20 06:45 Temperature Temperature Source Pulse Rate 98 H 97 H 98 H Pulse Rate [Apical] Pulse Rate from SpO2 Sensor 95 H 95 H 98 H Pulse Rhythm Respiratory Rate 26 H 27 H 26 H Respiratory Effort / Characteristics Respiratory Depth Respiratory Pattern Blood Pressure 173/85 H 111/66 Blood Pressure Mean 114 81 Blood Pressure Position Pulse Oximetry 97 97 97 Oxygen Delivery Method Nasal Cannula Oxygen Flow Rate 4 Fraction of Inspired Oxygen Sepsis Recent Fever Within 48 Hours Sepsis New/Unexplained Change in Mental Status Sepsis Action Taken by Nursing 09/17/20 07:00 09/17/20 07:15 Temperature Temperature Source Pulse Rate 98 H 92 H Pulse Rate [Apical] Pulse Rate from SpO2 Sensor 94 H 88 Pulse Rhythm Respiratory Rate 28 H 26 H Respiratory Effort / Characteristics Respiratory Depth Respiratory Pattern Blood Pressure 130/82 99/72 L Blood Pressure Mean 98 81 Blood Pressure Position Pulse Oximetry 97 97 Oxygen Delivery Method Nasal Cannula Oxygen Flow Rate 4 Fraction of Inspired Oxygen Sepsis Recent Fever Within 48 Hours Sepsis New/Unexplained Change in Mental Status Sepsis Action Taken by Shelter Medications Current Medication List: was personally reviewed by me Laboratory Data Attestation: I reviewed the patient's lab results. Result diagrams: 09/17/20 03:14 09/17/20 03:14 Lab Results 09/17/20 09/17/20 09/17/20 Range/Units 03:14 03:14 03:14 WBC 14.01 H (4.8-10.8) K/uL RBC 4.51 L (4.7-6.1) M/uL Hgb 12.7 L (14.0-18.0) g/dL Hct 39.0 L (42-52) % MCV 86.5 (80-100) fL MCH 28.2 (25-34) pg MCHC 32.6 (32-36) g/dL RDW Std Deviation 51.6 H (36.4-46.3) fL RDW Coeff of Joey 16.2 H (11.5-14.5) % Plt Count 192 (130-400) K/uL MPV 9.7 (7.4-10.4) fL Immature Gran % (Auto) 0.2 % Neut % (Auto) 85.8 % Lymph % (Auto) 7.1 % [place] % (Auto) 6.4 % Eos % (Auto) 0.4 % Baso % (Auto) 0.1 % Neut # (Auto) 12.02 H (1.4-6.5) K/uL Lymph # (Auto) 1.00 L (1.2-3.4) K/uL [place] # (Auto) 0.89 H (0.11-0.59) K/uL Eos # (Auto) 0.06 (0-0.5) K/uL Baso # (Auto) 0.01 (0-0.2) K/uL Immature Gran # (Auto) 0.03 H (0.00-0.02) K/uL ESR (0-20) mm/hr PT 17.7 H (9.0-12.0) Seconds INR 1.8 H (0.9-1.1) APTT 29.3 (21.0-31.0) Seconds PTT Ratio 1.1 ABG pH ABG pCO2 ABG pO2 ABG HCO3 ABG O2 Saturation ABG Base Excess Tony Test VBG pH (7.36-7.41) VBG pCO2 (38-50) mmHg VBG pO2 mmHg VBG HCO3 mmol/L VBG O2 Saturation % VBG Base Excess mEq/L Barometric Pressure Oxygen Given Sodium 139 (136-145) mmol/L Potassium 4.5 (3.5-5.1) mmol/L Chloride 106 (98-107) mmol/L Carbon Dioxide 23 (21-32) mmol/L Anion Gap 10.0 (3-11) BUN 55 H (7-18) mg/dl Creatinine 2.86 H (0.6-1.4) mg/dl Est Cr Clr Drug Dosing Not Reportable Est GFR ( Amer) 25.4 ml/min Est GFR (Non-Af Amer) 21.9 ml/min BUN/Creatinine Ratio 19.3 (10-20) Glucose 220 H (70-99) mg/dl Lactate (0.4-2.0) mmol/L Calcium 9.2 (8.5-10.1) mg/dl Magnesium 1.9 (1.8-2.4) mg/dl Ferritin 94.8 (8-388) ng/ml Total Bilirubin 0.9 (0.2-1) mg/dl AST 26 (15-37) U/L ALT 30 (12-78) U/L Alkaline Phosphatase 138 H (45-117) U/L Lactate Dehydrogenase (87-241) U/L Total Creatine Kinase 288 (39-308) U/L CK-MB (CK-2) 5.7 H (0.5-3.6) ng/ml CK/CKMB % Calc 2.0 (0-3.0) Troponin I 0.043 (0-0.045) ng/ml C-Reactive Protein 0.65 H (0-0.29) mg/dl Total Protein 7.7 (6.4-8.2) gm/dl Albumin 3.5 (3.4-5.0) gm/dl Globulin 4.2 H (2.5-4.0) gm/dl Albumin/Globulin Ratio 0.8 L (0.9-2) Procalcitonin (0-0.5) ng/ml Specimen Hemolysis Urine Color Urine Appearance (Clear) Urine pH (4.5-7.5) Ur Specific [place] (1.000-1.030) Urine Protein (Negative) Urine Glucose (UA) (Negative) Urine Ketones (Negative) Urine Blood (Negative) Urine Nitrite (Negative) Urine Bilirubin (Negative) Urine Urobilinogen (Negative) Ur Leukocyte Esterase (Negative) Urine WBC (Auto) (0-5) /hpf Urine RBC (Auto) (0-4) /hpf U Hyaline Cast (Auto) (0-5) /lpf U Epithel Cells (Auto) (0-5) /lpf Urine Bacteria (Auto) (Negative) COVID-19 Eval Order SARS-CoV-2 (PCR) (Negative) 09/17/20 09/17/20 09/17/20 Range/Units 03:14 03:14 03:42 WBC (4.8-10.8) K/uL RBC (4.7-6.1) M/uL Hgb (14.0-18.0) g/dL Hct (42-52) % MCV (80-100) fL MCH (25-34) pg MCHC (32-36) g/dL RDW Std Deviation (36.4-46.3) fL RDW Coeff of Joey (11.5-14.5) % Plt Count (130-400) K/uL MPV (7.4-10.4) fL Immature Gran % (Auto) % Neut % (Auto) % Lymph % (Auto) % [place] % (Auto) % Eos % (Auto) % Baso % (Auto) % Neut # (Auto) (1.4-6.5) K/uL Lymph # (Auto) (1.2-3.4) K/uL [place] # (Auto) (0.11-0.59) K/uL Eos # (Auto) (0-0.5) K/uL Baso # (Auto) (0-0.2) K/uL Immature Gran # (Auto) (0.00-0.02) K/uL ESR 61 H (0-20) mm/hr PT (9.0-12.0) Seconds INR (0.9-1.1) APTT (21.0-31.0) Seconds PTT Ratio ABG pH ABG pCO2 ABG pO2 ABG HCO3 ABG O2 Saturation ABG Base Excess Tony Test VBG pH (7.36-7.41) VBG pCO2 (38-50) mmHg VBG pO2 mmHg VBG HCO3 mmol/L VBG O2 Saturation % VBG Base Excess mEq/L Barometric Pressure Oxygen Given Sodium (136-145) mmol/L Potassium (3.5-5.1) mmol/L Chloride (98-107) mmol/L Carbon Dioxide (21-32) mmol/L Anion Gap (3-11) BUN (7-18) mg/dl Creatinine (0.6-1.4) mg/dl Est Cr Clr Drug Dosing Est GFR ( Amer) ml/min Est GFR (Non-Af Amer) ml/min BUN/Creatinine Ratio (10-20) Glucose (70-99) mg/dl Lactate (0.4-2.0) mmol/L Calcium (8.5-10.1) mg/dl Magnesium (1.8-2.4) mg/dl Ferritin (8-388) ng/ml Total Bilirubin (0.2-1) mg/dl AST (15-37) U/L ALT (12-78) U/L Alkaline Phosphatase (45-117) U/L Lactate Dehydrogenase (87-241) U/L Total Creatine Kinase (39-308) U/L CK-MB (CK-2) (0.5-3.6) ng/ml CK/CKMB % Calc (0-3.0) Troponin I (0-0.045) ng/ml C-Reactive Protein (0-0.29) mg/dl Total Protein (6.4-8.2) gm/dl Albumin (3.4-5.0) gm/dl Globulin (2.5-4.0) gm/dl Albumin/Globulin Ratio (0.9-2) Procalcitonin 0.08 (0-0.5) ng/ml Specimen Hemolysis Urine Color Urine Appearance (Clear) Urine pH (4.5-7.5) Ur Specific [place] (1.000-1.030) Urine Protein (Negative) Urine Glucose (UA) (Negative) Urine Ketones (Negative) Urine Blood (Negative) Urine Nitrite (Negative) Urine Bilirubin (Negative) Urine Urobilinogen (Negative) Ur Leukocyte Esterase (Negative) Urine WBC (Auto) (0-5) /hpf Urine RBC (Auto) (0-4) /hpf U Hyaline Cast (Auto) (0-5) /lpf U Epithel Cells (Auto) (0-5) /lpf Urine Bacteria (Auto) (Negative) COVID-19 Eval Order Covid19 at [facility] SARS-CoV-2 (PCR) (Negative) 09/17/20 09/17/20 09/17/20 Range/Units 03:42 04:10 04:33 WBC (4.8-10.8) K/uL RBC (4.7-6.1) M/uL Hgb (14.0-18.0) g/dL Hct (42-52) % MCV (80-100) fL MCH (25-34) pg MCHC (32-36) g/dL RDW Std Deviation (36.4-46.3) fL RDW Coeff of Joey (11.5-14.5) % Plt Count (130-400) K/uL MPV (7.4-10.4) fL Immature Gran % (Auto) % Neut % (Auto) % Lymph % (Auto) % [place] % (Auto) % Eos % (Auto) % Baso % (Auto) % Neut # (Auto) (1.4-6.5) K/uL Lymph # (Auto) (1.2-3.4) K/uL [place] # (Auto) (0.11-0.59) K/uL Eos # (Auto) (0-0.5) K/uL Baso # (Auto) (0-0.2) K/uL Immature Gran # (Auto) (0.00-0.02) K/uL ESR (0-20) mm/hr PT (9.0-12.0) Seconds INR (0.9-1.1) APTT (21.0-31.0) Seconds PTT Ratio ABG pH ABG pCO2 ABG pO2 ABG HCO3 ABG O2 Saturation ABG Base Excess Tony Test VBG pH (7.36-7.41) VBG pCO2 (38-50) mmHg VBG pO2 mmHg VBG HCO3 mmol/L VBG O2 Saturation % VBG Base Excess mEq/L Barometric Pressure Oxygen Given Sodium (136-145) mmol/L Potassium (3.5-5.1) mmol/L Chloride (98-107) mmol/L Carbon Dioxide (21-32) mmol/L Anion Gap (3-11) BUN (7-18) mg/dl Creatinine (0.6-1.4) mg/dl Est Cr Clr Drug Dosing Est GFR ( Amer) ml/min Est GFR (Non-Af Amer) ml/min BUN/Creatinine Ratio (10-20) Glucose (70-99) mg/dl Lactate 0.9 (0.4-2.0) mmol/L Calcium (8.5-10.1) mg/dl Magnesium (1.8-2.4) mg/dl Ferritin (8-388) ng/ml Total Bilirubin (0.2-1) mg/dl AST (15-37) U/L ALT (12-78) U/L Alkaline Phosphatase (45-117) U/L Lactate Dehydrogenase (87-241) U/L Total Creatine Kinase (39-308) U/L CK-MB (CK-2) (0.5-3.6) ng/ml CK/CKMB % Calc (0-3.0) Troponin I (0-0.045) ng/ml C-Reactive Protein (0-0.29) mg/dl Total Protein (6.4-8.2) gm/dl Albumin (3.4-5.0) gm/dl Globulin (2.5-4.0) gm/dl Albumin/Globulin Ratio (0.9-2) Procalcitonin (0-0.5) ng/ml Specimen Hemolysis Urine Color Yellow Urine Appearance Clear (Clear) Urine pH 5.0 (4.5-7.5) Ur Specific [place] 1.018 (1.000-1.030) Urine Protein 3+ H (Negative) Urine Glucose (UA) 1+ H (Negative) Urine Ketones Negative (Negative) Urine Blood Negative (Negative) Urine Nitrite Negative (Negative) Urine Bilirubin Negative (Negative) Urine Urobilinogen Negative (Negative) Ur Leukocyte Esterase Negative (Negative) Urine WBC (Auto) 1-5 (0-5) /hpf Urine RBC (Auto) 0-4 (0-4) /hpf U Hyaline Cast (Auto) 1-5 (0-5) /lpf U Epithel Cells (Auto) 20-30 H (0-5) /lpf Urine Bacteria (Auto) Negative (Negative) COVID-19 Eval Order SARS-CoV-2 (PCR) POSITIVE A* (Negative) 09/17/20 09/17/20 09/17/20 Range/Units 04:33 04:33 05:49 WBC (4.8-10.8) K/uL RBC (4.7-6.1) M/uL Hgb (14.0-18.0) g/dL Hct (42-52) % MCV (80-100) fL MCH (25-34) pg MCHC (32-36) g/dL RDW Std Deviation (36.4-46.3) fL RDW Coeff of Joey (11.5-14.5) % Plt Count (130-400) K/uL MPV (7.4-10.4) fL Immature Gran % (Auto) % Neut % (Auto) % Lymph % (Auto) % [place] % (Auto) % Eos % (Auto) % Baso % (Auto) % Neut # (Auto) (1.4-6.5) K/uL Lymph # (Auto) (1.2-3.4) K/uL [place] # (Auto) (0.11-0.59) K/uL Eos # (Auto) (0-0.5) K/uL Baso # (Auto) (0-0.2) K/uL Immature Gran # (Auto) (0.00-0.02) K/uL ESR (0-20) mm/hr PT (9.0-12.0) Seconds INR (0.9-1.1) APTT (21.0-31.0) Seconds PTT Ratio ABG pH Cancelled ABG pCO2 Cancelled ABG pO2 Cancelled ABG HCO3 Cancelled ABG O2 Saturation Cancelled ABG Base Excess Cancelled Tony Test Cancelled VBG pH 7.15 L (7.36-7.41) VBG pCO2 46 (38-50) mmHg VBG pO2 50 mmHg VBG HCO3 16 mmol/L VBG O2 Saturation 83.1 % VBG Base Excess -12.9 mEq/L Barometric Pressure Cancelled 737.9 Oxygen Given Cancelled Sodium (136-145) mmol/L Potassium (3.5-5.1) mmol/L Chloride (98-107) mmol/L Carbon Dioxide (21-32) mmol/L Anion Gap (3-11) BUN (7-18) mg/dl Creatinine (0.6-1.4) mg/dl Est Cr Clr Drug Dosing Est GFR ( Amer) ml/min Est GFR (Non-Af Amer) ml/min BUN/Creatinine Ratio (10-20) Glucose (70-99) mg/dl Lactate (0.4-2.0) mmol/L Calcium (8.5-10.1) mg/dl Magnesium (1.8-2.4) mg/dl Ferritin (8-388) ng/ml Total Bilirubin (0.2-1) mg/dl AST (15-37) U/L ALT (12-78) U/L Alkaline Phosphatase (45-117) U/L Lactate Dehydrogenase 284 H (87-241) U/L Total Creatine Kinase (39-308) U/L CK-MB (CK-2) (0.5-3.6) ng/ml CK/CKMB % Calc (0-3.0) Troponin I (0-0.045) ng/ml C-Reactive Protein (0-0.29) mg/dl Total Protein (6.4-8.2) gm/dl Albumin (3.4-5.0) gm/dl Globulin (2.5-4.0) gm/dl Albumin/Globulin Ratio (0.9-2) Procalcitonin (0-0.5) ng/ml Specimen Hemolysis Urine Color Urine Appearance (Clear) Urine pH (4.5-7.5) Ur Specific Morris (1.000-1.030) Urine Protein (Negative) Urine Glucose (UA) (Negative) Urine Ketones (Negative) Urine Blood (Negative) Urine Nitrite (Negative) Urine Bilirubin (Negative) Urine Urobilinogen (Negative) Ur Leukocyte Esterase (Negative) Urine WBC (Auto) (0-5) /hpf Urine RBC (Auto) (0-4) /hpf U Hyaline Cast (Auto) (0-5) /lpf U Epithel Cells (Auto) (0-5) /lpf Urine Bacteria (Auto) (Negative) COVID-19 Eval Order SARS-CoV-2 (PCR) (Negative) Administered Medications Amlodipine Besylate (Amlodipine Besylate 5 Mg Tab) 2.5 mg PO DAILY [facility] Stop: 10/17/20 10:08 Last Admin: 09/17/20 12:35 Dose: 2.5 mg Documented by: [id number] Aspirin (Aspirin 81 Mg Ectab) 81 mg PO QAM [facility] Stop: 10/17/20 10:08 Last Admin: 09/17/20 12:34 Dose: 81 mg Documented by: [id number] Atorvastatin Calcium (Atorvastatin 40 Mg Tab) 80 mg PO DAILY [facility] Stop: 10/17/20 10:08 Last Admin: 09/17/20 12:35 Dose: 80 mg Documented by: [id number] Baclofen (Baclofen 10 Mg Tab) 10 mg PO HS [facility] Stop: 10/17/20 20:59 Last Admin: 09/17/20 20:32 Dose: 10 mg Documented by: [id number] Docusate Sodium/Ferrous Fumarate (Ferrous Fumarate/Ascorbic Acid 65 Mg Capcr) 65 mg PO BID [facility] Stop: 10/17/20 10:08 Last Admin: 09/17/20 23:08 Dose: 65 mg Documented by: [id number] Admin: 09/17/20 13:42 Dose: Not Given Documented by: [id number] Doxycycline Hyclate (Doxycycline Hyclate 100 Mg Cap) 100 mg PO Q12H [facility] Stop: 09/24/20 17:59 Last Admin: 09/17/20 17:32 Dose: 100 mg Documented by: [id number] Fluticasone/Vilanterol (Fluticasone/Vilanterol 100/25mcg 14 Puffs/Inhaler) 1 puffs INH QAM [facility] Stop: 10/17/20 10:08 Last Admin: 09/17/20 12:32 Dose: 1 puffs Documented by: [id number] Gabapentin (Gabapentin 100 Mg Cap) 100 mg PO TIDM [facility] Stop: 10/17/20 10:08 Last Admin: 09/17/20 17:28 Dose: 100 mg Documented by: [id number] Admin: 09/17/20 13:42 Dose: 100 mg Documented by: [id number] Admin: 09/17/20 12:34 Dose: Not Given Documented by: [id number] Guaifenesin (Guaifenesin 600 Mg Tabcr) 600 mg PO Q12 PRN PRN Reason: Cough Stop: 10/17/20 10:08 Last Admin: 09/17/20 20:31 Dose: 600 mg Documented by: [id number] Hydralazine HCl (Hydralazine Hcl 25 Mg Tab) 75 mg PO TID [facility] Stop: 10/17/20 10:08 Last Admin: 09/17/20 20:33 Dose: 75 mg Documented by: [id number] Admin: 09/17/20 15:29 Dose: Not Given Documented by: [id number] Admin: 09/17/20 12:34 Dose: 75 mg Documented by: [id number] Furosemide 40 mg/ Syringe 4 mls @ 4 mls/min IV Q12H [facility] Stop: 10/17/20 11:59 Last Admin: 09/17/20 12:33 Dose: 4 mls/min Documented by: [id number] Insulin Aspart (Insulin Aspart 100 Units/Ml 3 Ml Pen) 0 units SC Q6 [facility] Stop: 10/17/20 10:08 Last Admin: 09/17/20 23:24 Dose: 11 units Documented by: [id number] Cosigned by: [id number] Admin: 09/17/20 17:26 Dose: 19 units Documented by: [id number] Cosigned by: [id number] Admin: 09/17/20 15:29 Dose: Not Given Documented by: [id number] Cosigned by: [id number] Admin: 09/17/20 12:41 Dose: 11 units Documented by: [id number] Cosigned by: [id number] Isosorbide Dinitrate (Isosorbide Dinitrate 10 Mg Tab) 10 mg PO TIDM [facility] Stop: 10/17/20 10:08 Last Admin: 09/17/20 17:31 Dose: 10 mg Documented by: [id number] Admin: 09/17/20 12:33 Dose: 10 mg Documented by: [id number] Admin: 09/17/20 12:33 Dose: Not Given Documented by: [id number] Metoprolol Succinate (Metoprolol Succ 50mg Ext Rel Tab) 100 mg PO BID [facility] Stop: 10/17/20 10:08 Last Admin: 09/17/20 20:32 Dose: 100 mg Documented by: [id number] Admin: 09/17/20 12:36 Dose: 100 mg Documented by: [id number] Pantoprazole Sodium (Pantoprazole 40 Mg Tab) 40 mg PO [facility] Stop: 10/17/20 10:08 Last Admin: 09/17/20 12:35 Dose: 40 mg Documented by: [id number] Vitamin D (Cholecalciferol 1,000 Units 25 Mcg Tab) 2,000 units PO [facility] Stop: 10/17/20 10:08 Last Admin: 09/17/20 12:33 Dose: 2,000 units Documented by: [id number] Warfarin Sodium (Warfarin Sod 10 Mg Tab) 10 mg PO [id number] [facility] Stop: 10/17/20 15:59 Last Admin: 09/17/20 17:31 Dose: 10 mg Documented by: [id number] Discontinued Medications Aspirin (Aspirin Chew 324 Mg) 324 mg PO NOW STA Stop: 09/17/20 03:18 Last Admin: 09/17/20 03:45 Dose: 324 mg Documented by: [id number] Dexamethasone Sodium Phosphate (DexamethasonePf 10 Mg/Ml Vial) 10 mg IV NOW ONE Stop: 09/17/20 03:12 Last Admin: 09/17/20 03:53 Dose: 10 mg Documented by: [id number] Furosemide (Furosemide 40 Mg/4 Ml Vial) 40 mg IV NOW STA Stop: 09/17/20 03:12 Last Admin: 09/17/20 03:19 Dose: 40 mg Documented by: [id number] Magnesium Sulfate/Dextrose (Magnesium Sulfate / D5w) 1 gm in 100 mls @ 100 mls/hr IV NOW STA Stop: 09/17/20 04:11 Last Infusion: 09/17/20 04:57 Dose: 0 mls/hr Documented by: [id number] Admin: 09/17/20 03:53 Dose: 100 mls/hr Documented by: [id number] Piperacillin Sod/Tazobactam Sod (Zosyn) 4.5 gm in 120 mls @ 240 mls/hr IV NOW ONE Stop: 09/17/20 04:15 Last Infusion: 09/17/20 04:45 Dose: 0 mls/hr Documented by: [id number] Admin: 09/17/20 04:12 Dose: 240 mls/hr Documented by: [id number] Levofloxacin/Dextrose (Levaquin/D5w) 750 mg in 150 mls @ 100 mls/hr IV NOW STA Stop: 09/17/20 05:15 Last Infusion: 09/17/20 05:31 Dose: 0 mls/hr Documented by: [id number] Admin: 09/17/20 04:12 Dose: 100 mls/hr Documented by: [id number] Daptomycin 525 mg/ Syringe 10.5 mls @ 5.25 mls/min IV NOW ONE; Protocol Stop: 09/17/20 05:01 Last Admin: 09/17/20 05:25 Dose: 5.25 mls/min Documented by: [id number] Piperacillin Sod/Tazobactam (Sod 4.5 gm/ Dextrose) 120 mls @ 30 mls/hr IV Q8H [facility]; Protocol Stop: 09/24/20 10:59 Last Admin: 09/17/20 12:55 Dose: Not Given Documented by: [id number] Insulin Human Regular 6 units/ (Syringe) 6 mls @ 30 mls/min IV ONE ONE Stop: 09/17/20 21:21 Last Admin: 09/17/20 22:34 Dose: 30 mls/min Documented by: [id number] Cosigned by: [id number] Insulin Glargine (Insulin Glargine Solostar 100 Units/Ml 3 Ml Pen) 15 units SC BID [facility] Stop: 10/17/20 11:44 Last Admin: 09/17/20 13:42 Dose: 15 units Documented by: [id number] Cosigned by: [id number] Insulin Glargine (Insulin Glargine Solostar 100 Units/Ml 3 Ml Pen) 10 units SC NOW STA Stop: 09/17/20 21:06 Last Admin: 09/17/20 21:45 Dose: 10 units Documented by: [id number] Cosigned by: [id number] Levalbuterol HCl (Levalbuterol 0.31mg/3 Ml Vial) 0.31 mg NEB NOW STA Stop: 09/17/20 03:12 Last Admin: 09/17/20 03:11 Dose: 0.31 mg Documented by: [id number] Levalbuterol HCl (Levalbuterol 0.31mg/3 Ml Vial) 0.31 mg NEB NOW STA Stop: 09/17/20 04:15 Last Admin: 09/17/20 05:35 Dose: Not Given Documented by: [id number] Nitroglycerin (Nitroglycerin 2% Ointment 30gm Tube) 1 inch EXT NOW STA Stop: 09/17/20 03:18 Last Admin: 09/17/20 03:35 Dose: 1 inch Documented by: [id number] Ondansetron HCl (Ondansetron Inj 2 Mg/Ml 2 Ml Vial) 4 mg IV NOW STA Stop: 09/17/20 03:37 Last Admin: 09/17/20 03:54 Dose: 4 mg Documented by: [id number] Ondansetron HCl (Ondansetron Inj 2 Mg/Ml 2 Ml Vial) Confirm Administered Dose 4 mg .ROUTE .STK-MED ONE Stop: 09/17/20 03:37 Last Admin: 09/17/20 03:54 Dose: Not Given Documented by: [id number] Imaging Data Attestation: I personally reviewed and interpreted this imaging study as follows: Radiologist's Impression: Chest X-Ray 09/17/20 03:11 XR chest 1V portable CLINICAL HISTORY: SEPSIS COMPARISON STUDY: 08/13/2020 FINDINGS: The heart is enlarged. There is a left subclavian pacer/defibrillator. There is differential attenuation hemithoraces likely related to technical factors. There are equivocal right basilar airspace opacities. There is no overt failure.[ IMPRESSION: 1. Cardiomegaly 2. Differential attenuation hemithoraces likely related to technical factors 3. Equivocal right basilar airspace opacities. If symptoms persist, a follow-up PA and lateral study should be considered. ACT 112: Negative or not required by law. Electronically signed by: Indra Aguilar M.D. 09/17/2020 8:14 AM Abdomen/Pelvis CT 09/17/20 03:45 CT SCAN OF THE ABDOMEN AND PELVIS WITHOUT CONTRAST CLINICAL HISTORY: Diffuse abdominal pain COMPARISON STUDY: April 24, 2020 TECHNIQUE: CT scan of the abdomen and pelvis was performed from the lung bases to the proximal femurs. Images are reviewed in the axial, sagittal, and coronal planes. IV contrast was not administered for this examination. A dose lowering technique was utilized adhering to the principles of ALARA. CT DOSE: 2563.76 mGy.cm FINDINGS: Lower chest: There are small bilateral pleural effusions. There is groundglass attenuation the lungs with interlobular septal edema. There is a partially visualized 9 mm left lower lobe groundglass nodule. Liver: No space-occupying hepatic masses are visualized in this noncontrast study. Gallbladder: Cholelithiasis. Mild gallbladder distention. There is an equivocal common bile duct calculus. An MRCP could be obtained in follow-up as deemed clinically appropriate. Spleen: Normal in size and attenuation. Pancreas: Unremarkable. Adrenal glands: Unremarkable. Kidneys: There is a 41 mm left renal cyst. No renal, ureteral, or bladder calculi identified. Bowel: There are no transition zones to indicate bowel obstruction. There is no evidence of acute diverticulitis. The appendix appears normal. Peritoneum: There is trace pericardial fluid. There is no free intraperitoneal air. Vasculature: There is no evidence of abdominal aortic aneurysm. Adenopathy: There is no pathologic adenopathy. Pelvic viscera: There is borderline bladder wall thickening. There is trace gas versus fat within the left lateral bladder. Skeletal structures: No destructive osseous lesions are seen. The examination is motion compromised. IMPRESSION: 1. No evidence of bowel obstruction. No evidence of free air 2. Normal appendix. No evidence of acute diverticulitis 3. Groundglass pulmonary opacities, small bilateral pleural effusions, interlobular septal thickening likely secondary to pulmonary edema 4. Partially visualized 9 mm left lower lobe groundglass pulmonary nodule 5. No renal, ureteral, or bladder calculi identified 6. Cholelithiasis, and equivocal common bile duct calculus. An MRCP could be obtained in follow-up as deemed clinically appropriate. 7. Motion compromised study Please refer to below summary of Fleischner criteria recommendations for follow- up of incidental CT nodules (Rosetta Villalobos, Guidelines for management of small pulmonary nodules detected on CT scans: A statement from the Fleischner Society, Radiology 237: [phone].) SOLID NODULES Solitary nodule size: <6 mm * low risk patients: no follow-up needed * high risk patients: optional CT at 12 months Solitary nodule size: 6-8 mm * low risk patients: follow-up at 6-12 months, then consider further follow-up at 18-24 months * high risk patients: initial follow-up CT at 6-12 months and then at 18-24 months if no change Solitary nodule size: >8 mm * either low or high risk patients - consider follow-up CT at 3 months, and/or CT-PET, and/or biopsy Multiple nodules size: <6 mm * low risk patients: no routine follow-up * high risk patients: optional CT at 12 months Multiple nodules size: 6-8 mm * low risk patients: follow-up at 3-6 months, then consider further follow-up at 18-24 months * high risk patients: follow-up at 3-6 months, then at 18-24 months if no change Multiple nodules size: >8 mm * low risk patients: follow-up at 3-6 months, then consider further follow-up at 18-24 months * high risk patients: follow-up at 3-6 months, then at 18-24 months if no change Note: newly detected indeterminate nodule in persons 35 years of age or older. * low risk patients: minimal or absent history of smoking and/or other known risk factors * high risk patients: history of smoking or of other known risk factors (e.g. first degree relative with lung cancer, or exposure to asbestos, radon, uranium) * if a nodule up to 8 mm is partly solid or is ground glass further follow-up is required after 24 months to exclude possible slow growing adenocarcinoma (HIRA) SUBSOLID NODULES Solitary pure ground-glass nodule * nodule size <6 mm - no CT follow-up required * nodule size >=6 mm - follow-up CT at 6-12 months, then every 2 years until 5 years Solitary part-solid nodule * nodule size <6 mm - no CT follow-up required * nodule size >=6 mm - follow-up CT at 3-6 months. If unchanged, and solid component remains <6 mm, then annual follow-up for 5 years Multiple subsolid nodules * nodule size <6 mm - follow-up CT at 3-6 months, consider further follow-up at 2 and 4 years if stable * nodule size >=6 mm - follow-up CT at 3-6 months, subsequent management based on the most suspicious nodule(s) ACT 112: Negative or not required by law. Electronically signed by: Indra Aguilar M.D. 09/17/2020 7:[address] 09/17/20 03:45 CT chest diagnostic wo con CLINICAL HISTORY: Atypical chest pain and sepsis COMPARISON STUDY: 05/18/2018 CT DOSE: TECHNIQUE: CT of the thorax was performed from the thoracic inlet to the lung bases. Images are reviewed in the axial, sagittal, and coronal planes. IV contrast was not administered for this examination. A dose lowering technique was utilized adhering to the principles of ALARA. FINDINGS: Thyroid: Imaged portions of the thyroid gland are normal in appearance. Thoracic aorta: There is mild ectasia of descending thoracic aorta which measures 37 mm. Heart: The heart is enlarged with coronary calcifications. There are small pericardial effusion. Cardiac electrodes are visualized. Lungs and pleural spaces: There are small bilateral pleural effusions. There is respiratory motion artifact. There is groundglass attenuation the lungs with more focal airspace opacities within the base the right upper lobe, pneumonia versus focal edema. There is mild interlobular septal thickening. Mediastinum: There are mildly enlarged mediastinal lymph nodes. Luisa: Hilar lymph nodes are the upper limits of normal in size. Axilla: Clear. Upper abdomen: There is a 36 mm left renal cyst Skeletal structures: There are no lytic or blastic osseous lesions. IMPRESSION: 1. Small bilateral pleural effusions and mild interlobular septal thickening 2. Groundglass pulmonary opacities, likely representing pulmonary edema. There are more focal airspace opacities within the right upper lobe posteriorly, pneumonia versus focal edema 3. Mildly enlarged mediastinal lymph nodes 4. Motion compromised study ACT 112: Negative or not required by law. Electronically signed by: Indra Aguilar M.D. 09/17/2020 7:40 AM Discharge Plan Visit Data Chief Complaint: Respiratory Problems Stated Complaint: RESPIRATORY DIFFICULTY ED Provider: Winston Carr Discharge Problem: Acute renal failure superimposed on stage 4 chronic kidney disease, CHF (con gestive heart failure), Non-ST elevation (NSTEMI) myocardial infarction Patient Disposition: Admitted As Inpatient Discharge Instructions Interventions: ED Discharge Assessment Last Done: 09/17/20 09:03 Discharge Problem: Acute renal failure superimposed on stage 4 chronic kidney disease Qualifiers: Acute renal failure type: unspecified Qualified Code(s): N17.9 - Acute kidney failure, unspecified CHF (congestive heart failure) Qualifiers: Heart failure type: unspecified Heart failure chronicity: unspecified Qualified Code(s): I50.9 - Heart failure, unspecified
[2020-09-17 03:31] LABS: Basophils # (auto) 0.01 K/uL (0-0.2); Basophils % (auto) 0.1 %; Eosinophils # (auto) 0.06 K/uL (0-0.5); Eosinophils % (auto) 0.4 %; Hemoglobin 12.7 g/dL (14.0-18.0); Immature Granulocytes # (auto) 0.03 K/uL (0.00-0.02); Immature Granulocytes % (auto) 0.2 %; Lymphocytes % (auto) 7.1 %; Mean Corpuscular Hemoglobin 28.2 pg (25-34); Mean Corpuscular Hgb Conc 32.6 g/dL (32-36); Mean Corpuscular Volume 86.5 fL (80-100); Mean Platelet Volume 9.7 fL (7.4-10.4); Monocytes # (auto) 0.89 K/uL (0.11-0.59); Monocytes % (auto) 6.4 %; Neutrophils # (auto) 12.02 K/uL (1.4-6.5); Neutrophils % (auto) 85.8 %; Platelet Count 192 K/uL (130-400); RDW Coefficient of Variation 16.2 % (11.5-14.5); RDW Standard Deviation 51.6 fL (36.4-46.3); Red Blood Count 4.51 M/uL (4.7-6.1); White Blood Count 14.01 K/uL (4.8-10.8)
[2020-09-17] MEDS ORDERED: ONDANSETRON INJ 2 MG/ML 2 ML VIAL IV STA (03:36)
[2020-09-17] MEDS ORDERED: ONDANSETRON INJ 2 MG/ML 2 ML VIAL ONE (03:36)
[2020-09-17 03:41] LABS: INR 1.8 (0.9-1.1); Partial Thromboplastin Ratio 1.1; Partial Thromboplastin Time 29.3 Seconds (21.0-31.0); Prothrombin Time 17.7 Seconds (9.0-12.0)
[2020-09-17] MEDS ORDERED: PIPERACILL/TAZOBAC CONSULT ACTIVE PRN (03:46)
[2020-09-17] MEDS ORDERED: PIPERACILLIN/TAZOBACTAM 4.5 GM/120 ML BAG IV ONE (03:46)
[2020-09-17] MEDS ORDERED: levoFLOXacin/D5W 750 MG/150 ML BAG IV STA (03:46)
[2020-09-17 03:56] LABS: Alanine Aminotransferase 30 U/L (12-78); Albumin Globulin Ratio 0.8 (0.9-2); Albumin Level 3.5 gm/dl (3.4-5.0); Alkaline Phosphatase 138 U/L (45-117); BUN Creatinine Ratio 19.3 (10-20); Bilirubin,Total 0.9 mg/dl (0.2-1); Blood Urea Nitrogen 55 mg/dl (7-18); Calcium 9.2 mg/dl (8.5-10.1); Carbon Dioxide 23 mmol/L (21-32); Chloride 106 mmol/L (98-107); Creatine Kinase MB 5.7 ng/ml (0.5-3.6); Est GFR (African American) 25.4 ml/min; Est GFR (Non-African American) 21.9 ml/min; Globulin 4.2 gm/dl (2.5-4.0); Glucose 220 mg/dl (70-99); Sodium 139 mmol/L (136-145); Total Protein 7.7 gm/dl (6.4-8.2); Troponin I 0.043 ng/ml (0-0.045)
[2020-09-17 04:06] LABS: Potassium 4.5 mmol/L (3.5-5.1)
[2020-09-17 04:09] LABS: Aspartate Aminotransferase 26 U/L (15-37); Creatine Kinase 288 U/L (39-308); Magnesium 1.9 mg/dl (1.8-2.4)
[2020-09-17 04:28] LABS: Appearance Urine Clear (Clear); Bacteria Urine Automated Negative (Negative); Bilirubin Urine Negative (Negative); Blood Urine Negative (Negative); Color Urine Yellow; Epithelial Cell Urine Auto 20-30 /lpf (0-5); Glucose Urine UA 1+ (Negative); Ketones Urine Negative (Negative); Leukocyte Esterase Urine Negative (Negative); Nitrite Urine Negative (Negative); Protein Urine 3+ (Negative); RBC Urine Automated 0-4 /hpf (0-4); Specific Gravity Urine 1.018 (1.000-1.030); Urobilinogen Urine Negative (Negative)
[2020-09-17 04:55] LABS: Base Excess VBG -12.9 mEq/L; Oxygen Saturation VBG 83.1 %; pH VBG 7.15 (7.36-7.41)
[2020-09-17] MEDS ORDERED: DAPTOmycin 525 MG in SYRINGE 0 ML IV ONE (05:00)
[2020-09-17 05:38] LABS: C Reactive Protein 0.65 mg/dl (0-0.29); Ferritin 94.8 ng/ml (8-388)
--- NOTE | 2020-09-17 07:07 | CT Scan Report ---
CT SCAN OF THE ABDOMEN AND PELVIS WITHOUT CONTRAST CLINICAL HISTORY: Diffuse abdominal pain COMPARISON STUDY: April 24, 2020 TECHNIQUE: CT scan of the abdomen and pelvis was performed from the lung bases to the proximal femurs . Images are reviewed in the axial, sagittal, and coronal planes. IV contrast was not administered fo r this examination. A dose lowering technique was utilized adhering to the principles of ALARA. CT DOSE: 2563.76 mGy.cm FINDINGS: Lower chest: There are small bilateral pleural effusions. There is groundglass attenuation the lungs with interlobular septal edema. There is a partially visualized 9 mm left lower lobe groundglass nodu le. Liver: No space-occupying hepatic masses are visualized in this noncontrast study. Gallbladder: Cholelithiasis. Mild gallbladder distention. There is an equivocal common bile duct calc ulus. An MRCP could be obtained in follow-up as deemed clinically appropriate. Spleen: Normal in size and attenuation. Pancreas: Unremarkable. Adrenal glands: Unremarkable. Kidneys: There is a 41 mm left renal cyst. No renal, ureteral, or bladder calculi identified. Bowel: There are no transition zones to indicate bowel obstruction. There is no evidence of acute div erticulitis. The appendix appears normal. Peritoneum: There is trace pericardial fluid. There is no free intraperitoneal air. Vasculature: There is no evidence of abdominal aortic aneurysm. Adenopathy: There is no pathologic adenopathy. Pelvic viscera: There is borderline bladder wall thickening. There is trace gas versus fat within the left lateral bladder. Skeletal structures: No destructive osseous lesions are seen. The examination is motion compromised. IMPRESSION: 1. No evidence of bowel obstruction. No evidence of free air 2. Normal appendix. No evidence of acute diverticulitis 3. Groundglass pulmonary opacities, small bilateral pleural effusions, interlobular septal thickening likely secondary to pulmonary edema 4. Partially visualized 9 mm left lower lobe groundglass pulmonary nodule 5. No renal, ureteral, or bladder calculi identified 6. Cholelithiasis, and equivocal common bile duct calculus. An MRCP could be obtained in follow-up as deemed clinically appropriate. 7. Motion compromised study Please refer to below summary of Fleischner criteria recommendations for follow-up of incidental CT n odules (Rosetta Villalobos, Guidelines for management of small pulmonary nodules detected on CT scans: A sta tement from the Fleischner Society, Radiology 237: [phone].) SOLID NODULES Solitary nodule size: <6 mm * low risk patients: no follow-up needed * high risk patients: optional CT at 12 months Solitary nodule size: 6-8 mm * low risk patients: follow-up at 6-12 months, then consider further follow-up at 18-24 months * high risk patients: initial follow-up CT at 6-12 months and then at 18-24 months if no change Solitary nodule size: >8 mm * either low or high risk patients - consider follow-up CT at 3 months, and/or CT-PET, and/or biopsy Multiple nodules size: <6 mm * low risk patients: no routine follow-up * high risk patients: optional CT at 12 months Multiple nodules size: 6-8 mm * low risk patients: follow-up at 3-6 months, then consider further follow-up at 18-24 months * high risk patients: follow-up at 3-6 months, then at 18-24 months if no change Multiple nodules size: >8 mm * low risk patients: follow-up at 3-6 months, then consider further follow-up at 18-24 months * high risk patients: follow-up at 3-6 months, then at 18-24 months if no change Note: newly detected indeterminate nodule in persons 35 years of age or older. * low risk patients: minimal or absent history of smoking and/or other known risk factors * high risk patients: history of smoking or of other known risk factors (e.g. first degree relative with lung cancer, or exposure to asbestos, radon, uranium) * if a nodule up to 8 mm is partly solid or is ground glass further follow-up is required after 24 m onths to exclude possible slow growing adenocarcinoma (HIRA) SUBSOLID NODULES Solitary pure ground-glass nodule * nodule size <6 mm - no CT follow-up required * nodule size >=6 mm - follow-up CT at 6-12 months, then every 2 years until 5 years Solitary part-solid nodule * nodule size <6 mm - no CT follow-up required * nodule size >=6 mm - follow-up CT at 3-6 months. If unchanged, and solid component remains <6 mm, then annual follow-up for 5 years Multiple subsolid nodules * nodule size <6 mm - follow-up CT at 3-6 months, consider further follow-up at 2 and 4 years if sta ble * nodule size >=6 mm - follow-up CT at 3-6 months, subsequent management based on the most suspiciou s nodule(s) ACT 112: Negative or not required by law. Electronically signed by: Indra Aguilar M.D. 09/17/2020 7:06 AM
--- NOTE | 2020-09-17 07:42 | CT Scan Report ---
CT chest diagnostic wo con CLINICAL HISTORY: Atypical chest pain and sepsis COMPARISON STUDY: 05/18/2018 CT DOSE: TECHNIQUE: CT of the thorax was performed from the thoracic inlet to the lung bases. Images are revi ewed in the axial, sagittal, and coronal planes. IV contrast was not administered for this examinatio n. A dose lowering technique was utilized adhering to the principles of ALARA. FINDINGS: Thyroid: Imaged portions of the thyroid gland are normal in appearance. Thoracic aorta: There is mild ectasia of descending thoracic aorta which measures 37 mm. Heart: The heart is enlarged with coronary calcifications. There are small pericardial effusion. Card iac electrodes are visualized. Lungs and pleural spaces: There are small bilateral pleural effusions. There is respiratory motion ar tifact. There is groundglass attenuation the lungs with more focal airspace opacities within the base the right upper lobe, pneumonia versus focal edema. There is mild interlobular septal thickening. Mediastinum: There are mildly enlarged mediastinal lymph nodes. Luisa: Hilar lymph nodes are the upper limits of normal in size. Axilla: Clear. Upper abdomen: There is a 36 mm left renal cyst Skeletal structures: There are no lytic or blastic osseous lesions. IMPRESSION: 1. Small bilateral pleural effusions and mild interlobular septal thickening 2. Groundglass pulmonary opacities, likely representing pulmonary edema. There are more focal airspac e opacities within the right upper lobe posteriorly, pneumonia versus focal edema 3. Mildly enlarged mediastinal lymph nodes 4. Motion compromised study ACT 112: Negative or not required by law. Electronically signed by: Indra Aguilar M.D. 09/17/2020 7:40 AM
--- NOTE | 2020-09-17 08:15 | XRay Report ---
XR chest 1V portable CLINICAL HISTORY: SEPSIS COMPARISON STUDY: 08/13/2020 FINDINGS: The heart is enlarged. There is a left subclavian pacer/defibrillator. There is differentia l attenuation hemithoraces likely related to technical factors. There are equivocal right basilar air space opacities. There is no overt failure.[ IMPRESSION: 1. Cardiomegaly 2. Differential attenuation hemithoraces likely related to technical factors 3. Equivocal right basilar airspace opacities. If symptoms persist, a follow-up PA and lateral study should be considered. ACT 112: Negative or not required by law. Electronically signed by: Indra Aguilar M.D. 09/17/2020 8:14 AM
[2020-09-17] MEDS ORDERED: ACETAMINOPHEN 325 MG TAB PO PRN (10:09)
[2020-09-17] MEDS ORDERED: ONDANSETRON INJ 2 MG/ML 2 ML VIAL IV PRN (10:09)
[2020-09-17] MEDS ORDERED: guaiFENesin 600 MG TABCR PO PRN (10:09)
[2020-09-17] MEDS ORDERED: ALBUT/IPRATROP 3MG/0.5MG NEB 3 ML VIAL INH PRN (10:09)
[2020-09-17] MEDS ORDERED: ATORVASTATIN 40 MG TAB PO SCH (10:09)
[2020-09-17] MEDS ORDERED: NITROGLYCERIN SL 0.4 MG/TAB TAB SL PRN (10:09)
[2020-09-17] MEDS ORDERED: FUROSEMIDE 40 MG/4 ML VIAL IV SCH (10:09)
[2020-09-17] MEDS ORDERED: FUROSEMIDE 40 MG in SYRINGE 0 ML IV SCH (10:09)
[2020-09-17] MEDS ORDERED: FLUTICASONE PROPIONATE NA SPR 16 GM BTL PRN (10:09)
--- NOTE | 2020-09-17 10:14 | Electrocardiogram Report ---
Test Reason : Blood Pressure : / mmHG Vent. Rate : 126 BPM Atrial Rate : 068 BPM P-R Int : 000 ms QRS Dur : 168 ms QT Int : 322 ms P-R-T Axes : 000 -45 125 degrees QTc Int : 466 ms Probably Afib paced Beats and fusion beats Pvc's Left axis deviation Left bundle branch block Abnormal ECG When compared with ECG of 07-AUG-2020 06:28, Significant changes have occurred Confirmed by Dixon Castro ([id number]) on 09/17/2020 10:14:06 AM Referred By: REFERRED SELF Confirmed By:Dixon Castro
[2020-09-17] MEDS ORDERED: GLUCAGON FOR INJ 1 MG VIAL IM PRN (10:30)
[2020-09-17] MEDS ORDERED: GLUCOSE 10 TABS/TUBE PO PRN (10:30)
[2020-09-17] MEDS ORDERED: CARBOHYDRATES FOR HYPOGLYCEMIA PO PRN (10:30)
[2020-09-17] MEDS ORDERED: GLUCOSE 40% GEL 15 GM TUBE PO PRN (10:30)
[2020-09-17] MEDS ORDERED: DEXTROSE 50% 50 ML SYRINGE IV PRN (10:30)
[2020-09-17] MEDS ORDERED: ALBUTEROL HFA 8 GM INHALER INH PRN (10:34)
--- NOTE | 2020-09-17 10:57 | History and Physical Report ---
DATE OF ADMISSION: 09/17/2020 CHIEF COMPLAINT: Shortness of breath. HISTORY OF PRESENT ILLNESS: This is a 65-year-old male with past medical history significant for type 2 diabetes, history of hyperlipidemia, history of pancreatitis, gallstones, COPD, mild obstructive sleep apnea, on CPAP with oxygen, mild persistent asthma, pulmonary nodules, chronic sinusitis, chronic systolic CHF, nonischemic cardiomyopathy, atrial fibrillation, history of left middle cerebral artery stroke, nonrheumatic aortic valve stenosis, hypertension, left bundle branch block, pulmonary hypertension, peripheral vascular disease, obesity, gastroparesis, history of noncompliance, status post AICD, history of chewing tobacco. The patient lives with his , presents with shortness of breath. The patient states yesterday he went to [employer] and ate eggs and sosa. Last night, in the middle of the night, he woke up suddenly with shortness of breath. He could not catch his breath and he was breathing heavily. EMS was called and brought in here. Initially placed on BiPAP, but he could not tolerate. They placed him on high flow. His white count is elevated at 14. Lactate was okay at 0.9. Troponin 0.04. Procalcitonin is okay at 0.08. Urinalysis is negative. GLENDA-CoV-2 PCR is positive but he had SARS-CoV-2 last month even after the second dose of COVID vaccine. He was diagnosed with covid on 08/05. Currently he says he still has some dry cough; when he felt short of breath, he had some chest pain that is resolved now. No nausea, no vomiting, no abdominal pain. No headache, no blurred vision, no earache, no runny nose, no sore throat. Appetite is good. Normal bowel and bladder movements. Ambulates without any support at home. Received Lasix. Currently saturating okay on 4 liters and resting comfortably. ALLERGIES: No known drug allergies. PAST MEDICAL HISTORY: As mentioned above. PAST SURGICAL HISTORY: History of adrenal gland removal to control BP, cardiac catheterization, colonoscopy, EGD with endoscopic ultrasound, injection of lumbar and cervical spine, status post defibrillator, skin cancer removed from behind the left ear. MEDICATIONS: Currently, the patient is on albuterol 2 puffs q.4 hours p.r.n., aspirin 81 mg p.o. daily, atorvastatin 80 mg p.o. daily, baclofen 10 mg p.o. at bedtime, Breo Ellipta 1 inhalation daily, vitamin D 2000 units p.o. a.m., Flonase 2 sprays intranasally daily p.r.n., gabapentin 100 mg p.o. t.i.d., hydralazine 75 mg p.o. t.i.d., insulin sliding scale, DuoNeb 3 mL q.i.d. p.r.n., isosorbide dinitrate 10 mg p.o. t.i.d., Lantus 25 units b.i.d., lisinopril 10 mg p.o. daily, metoprolol succinate 100 mg p.o. a.m., Protonix 40 mg p.o. a.m., torsemide 10 mg p.o. a.m., Vitron-C 1 tablet p.o. b.i.d., warfarin 10 mg or 5 mg as directed. FAMILY HISTORY: Significant for brother had lung cancer, diabetes. Mother has CHF. Sister has diabetes, lung cancer; another has hypertension, nephrolithiasis. SOCIAL HISTORY: and lives with his . Chews 1 can of tobacco daily as per records, no alcohol use, no drug use. REVIEW OF SYMPTOMS: As per HPI. Rest of the review of symptoms is negative. PHYSICAL EXAMINATION: GENERAL: The patient is obese, currently not in acute distress. VITAL SIGNS: Temperature 36.8, pulse 98, respiratory rate 28, blood pressure 130/82, oxygen 97% on 4 liters. HEENT: Pupils equal, round, reactive to light. Oral mucosa moist. NECK: No JVD, no neck masses. CARDIOVASCULAR: S1, S2 heard, regular rate and rhythm, no murmur, no gallop. RESPIRATORY SYSTEM: Normal AP diameter. Mild occasional bilateral wheezing, bibasilar crackles. ABDOMEN: Soft, bowel sounds present, nontender. No distention. CENTRAL NERVOUS SYSTEM: Cranial nerves II-XII are grossly intact. Nonfocal. EXTREMITIES: Bilateral lower extremity +2 edema present, no erythema seen. LABORATORY DATA: WBC 14, hemoglobin 12.7, hematocrit 39, platelets 192. PT 17.7, INR 1.8, APTT 29.3. Venous blood gas pH of 7.15, pCO2 of 46, pO2 of 50, bicarbonate 16. Sodium 139, potassium 4.5, chloride 106, bicarbonate 23, BUN 55, creatinine 2.8, serum glucose 220. Lactate 0.9, calcium 9.2, magnesium 1.9, ferritin 94.8, total bilirubin 0.9, AST 26, ALT 30, alkaline phosphatase 138. Lactate dehydrogenase 284, total creatine kinase 288. Troponin I of 0.04. C-reactive protein 0.65. Procalcitonin 0.08. Urinalysis negative. SARS-CoV-2 PCR positive. IMAGING: CT of the chest, motion artifact. Small bilateral pleural effusions and lung densities suggestive of pulmonary edema with infection not excluded in the appropriate clinical setting. Trace pericardial fluid. Small mediastinal and hilar lymph nodes, additional incidental findings. CT of abdomen and pelvis, no evidence of bowel obstruction, no evidence of free air, normal appendix. No evidence of acute diverticulitis, ground-glass pulmonary opacities, small bilateral pleural effusion, interlobular septal thickening likely secondary to pulmonary edema, partially visualized 9 mm left lower lobe ground-glass pulmonary nodule, cholelithiasis viewed equivocal, common bile duct calculus to evaluate if clinically appropriate. No renal, ureteral or bladder calculi identified. Chest x-ray, bilateral pulmonary congestion. EKG: Undetermined rhythm, left bundle branch block, rate of 126. ASSESSMENT AND PLAN: This is a 65-year-old male who presents with acute shortness of breath. 1. Acute on chronic systolic and diastolic congestive heart failure, ejection fraction of around 30%-35% and also severe aortic stenosis. CT chest showing pulmonary edema. Received a dose of IV Lasix. Currently feeling better. Currently, saturating fine on 4 liters. Continue with IV Lasix 40 daily. Strict intakes and outputs, daily weights. Serial enzymes. Consult cardiology. Further recommendations as per cardiology. Continue his home hydralazine, isosorbide dinitrate, metoprolol succinate. Repeat echocardiogram as per cardiology. 2. chest pain but that got resolved now. We will follow serial enzymes. 3. Recent COVID diagnosis on 08/05, more than a month ago, could be false positive, but we will keep him on contact precautions for now. 4. Diabetes. Currently, patient is n.p.o. until seen by cardiology. Reduced Lantus 10 units b.i.d untial diet started . and continue insulin sliding scale. Follow the blood sugars. 5. History of mild chronic obstructive pulmonary disease. Has mild wheezing, but not in overt exacerbation. Continue with home inhalers and nebulizers p.r.n. 6. Obstructive sleep apnea. Continue CPAP at bedtime. On oxygen while sleeping with CPAP. 7. Chronic kidney disease, baseline creatinine around 2.5-2.8, currently creatinine of 2.8. We will follow the repeat laboratories. 8. History of hyperlipidemia, on statin. 9. History of atrial fibrillation, rate controlled with Toprol-XL, on Coumadin. INR is 1.8. Continue his home Coumadin. Follow PT/INR. 10. History of hypertension, on isosorbide dinitrate, metoprolol, hydralazine, lisinopril, and diuretics. We will monitor the blood pressure. The patient is also on amlodipine. 11. History of cerebrovascular accident. Had issues with speech which is currently improved. Physical therapy and occupational therapy when stable. 12. Deep venous thrombosis prophylaxis, on Coumadin. Monitor PT/INR. DISPOSITION: Closely monitor in the tele floor. Level 1 full code. Expect discharge home and follow with family doctor. PT and OT prior to discharge. billing services manager to help with discharge planning. NICOLE
[2020-09-17] MEDS ORDERED: PIPERACILLIN/TAZOBACTAM 4.5 GM in DEXTROSE 5% 100 ML IV SCH (11:00)
[2020-09-17] MEDS ORDERED: DOXYCYCLINE HYCLATE 100 MG CAP PO SCH (12:00)
[2020-09-17] MEDS: FLUTICASONE/VILANTEROL 100/25MCG 14 PUFFS/INHALER INH SCH (12:32)
[2020-09-17] MEDS: FUROSEMIDE 40 MG in SYRINGE 0 ML IV SCH (12:33)
[2020-09-17] MEDS: ISOSORBIDE DINITRATE 10 MG TAB PO SCH ×3 (12:33→17:31)
[2020-09-17] MEDS: CHOLECALCIFEROL 1,000 UNITS 25 MCG TAB PO SCH (12:33)
[2020-09-17] MEDS: ASPIRIN 81 MG ECTAB PO SCH (12:34)
[2020-09-17] MEDS: hydrALAZINE HCL 25 MG TAB PO SCH ×3 (12:34→20:33)
[2020-09-17] MEDS: GABAPENTIN 100 MG CAP PO SCH ×3 (12:34→17:28)
[2020-09-17] MEDS: amLODIPine BESYLATE 5 MG TAB PO SCH (12:35)
[2020-09-17] MEDS: ATORVASTATIN 40 MG TAB PO SCH (12:35)
[2020-09-17] MEDS: PANTOprazole 40 MG TAB PO SCH (12:35)
[2020-09-17] MEDS: METOPROLOL SUCC 50MG EXT REL TAB PO SCH ×2 (12:36→20:32)
[2020-09-17] MEDS: INSULIN ASPART 100 UNITS/ML 3 ML PEN SC SCH ×4 (12:41→23:24)
[2020-09-17] MEDS: INSULIN GLARGINE SOLOSTAR 100 UNITS/ML 3 ML PEN SC SCH (13:42)
[2020-09-17] MEDS: FERROUS FUMARATE/ASCORBIC ACID 65 MG CAPCR PO SCH ×2 (13:42→23:08)
--- NOTE | 2020-09-17 14:23 | Cardiology Consultation ---
Date of Consultation September 17, 2020 Assessment & Plan (1) CHF (congestive heart failure): -Acute on chronic systolic heart failure. -Agree with furosemide 40 mg IV twice daily to start, trend renal function and electrolytes. -Troponin minimally elevated at present. We will continue to trend, however patient does not appear to have presented with an acute coronary syndrome. (2) CKD (chronic kidney disease) stage 4, GFR 15-29 ml/min: -Most recent outpatient creatinine had been 2.8, EGFR 22.3 on 08/31/2020, therefore current renal function is not far from his usual baseline. (3) Chronic atrial fibrillation: INR 1.8. Initial EKG revealed atrial fibrillation with left bundle branch block. Now ventricular paced in the 80s. -Continue Coumadin, goal INR 23. (4) Aortic stenosis: -Management of his atrial fibrillation, complicated by his renal insufficiency. -I do not think that vascular intervention could be pursued without excepting significant risk of dialysis dependence. -Of note, at the time of the patient's recent outpatient visit on 08/17/2020, discussion took place with regards to preoperative evaluation prior to cholecystectomy. Patient considered to be high risk for perioperative cardiac and noncardiac complication including progressive renal insufficiency, and continues as such. History of Present Illness Attending Physician: Richard Newman, History of Present Illness Willis Delarosa is a 65-year-old male seen in cardiology consultation per the request of Dr. Desai and Dr Newman for the evaluation of chest pressure, shortness of breath, acute on chronic systolic heart failure. Patient states that he was d oing well up until 3 days ago, and noted progressive shortness of breath and had a bandlike chest tightness after having cinnamon chewing gum. He presented to the emergency department early this morning, he is already feeling improved after receiving IV diuretic therapy. He has a standing scale weight is 4 to 5 kg more than his discharge weight from 08/14/2020. At the time my assessment in room 215, under respiratory isolation due to his history of SARS-CoV-2 infection in July, patient was in no acute distress. Past Cardiac History: 1. Nonischemic cardiomyopathy, with right greater than left biventricular systolic and diastolic heart failure 2. Chronic left bundle branch block status post biventricular pacemaker defibrillator implantation June,, ongoing moderate LV systolic dysfunction ejection fraction the range of 30 to 34% 3. Chronic atrial fibrillation 4. Coumadin anticoagulation 5. Calcific aortic valve stenosis, borderline severe to severe (pseudoaortic stenosis in the setting of LV systolic dysfunction also consideration) 6. Atherosclerotic coronary disease without obstruction most recent cardiac catheterization June, 7. Severe central and obstructive sleep apnea syndrome treated with BiPAP therapy 8. Stroke, November,, while off Coumadin for endoscopy 9. Stage IV chronic kidney disease Allergies Allergy/AdvReac Type Severity Reaction Status Date / Time No Known Allergies Allergy Verified 09/17/20 07:03 Home Medications Medication Instructions Recorded Confirmed Type aspirin 81 mg PO QAM 02/05/18 09/17/20 History cholecalciferol (vitamin D3) 2,000 unit PO QAM 02/05/18 09/17/20 History [Vitamin D3] pantoprazole [Protonix] 40 mg PO QAM 02/05/18 09/17/20 History gabapentin 100 mg PO TIDM 05/14/18 09/17/20 History albuterol sulfate [ProAir HFA] 2 puff INHALATION Q4H PRN 08/01/18 09/17/20 History fluticasone propionate [Flonase 2 spray INTRANASAL DAILY PRN 08/01/18 09/17/20 History Allergy Relief] ipratropium-albuterol 3 ml INHALATION QID PRN 08/01/18 09/17/20 History Vitron-C 1 tab PO BID 06/05/19 09/17/20 History insulin lispro [Humalog KwikPen See Rx Instructions .ROUTE .COMPLEX 06/05/19 09/17/20 History Insulin] Breo Ellipta 1 inh INHALATION QAM 03/02/20 09/17/20 History torsemide 10 mg PO QAM 03/02/20 09/17/20 History Lantus Solostar U-100 Insulin 25 unit SUBCUT BID 04/23/20 09/17/20 History warfarin 10 mg PO UD 04/23/20 09/17/20 History atorvastatin 80 mg PO DAILY 08/05/20 09/17/20 History baclofen 10 mg PO HS 08/05/20 09/17/20 History warfarin 5 mg PO UD 08/05/20 09/17/20 History guaifenesin [Mucinex] 600 mg PO Q12 PRN #10 tab 08/14/20 09/17/20 Rx isosorbide dinitrate 10 mg PO TIDM #0 tab 08/14/20 09/17/20 Rx metoprolol succinate [Toprol XL] 100 mg PO BID #60 tab 08/14/20 09/17/20 Rx amlodipine 2.5 mg PO DAILY 09/17/20 09/17/20 History atorvastatin 80 mg PO DAILY 09/17/20 09/17/20 History furosemide [Lasix] 0 mg PO UD 09/17/20 09/17/20 History hydralazine 75 mg PO TID 09/17/20 09/17/20 History Patient History Medical History Acute cerebrovascular accident Aortic stenosis Severe aortic stenosis vs pseudo aortic stenosis due to low output per cardio note from 12/2019 ECHO Asthma Atrial fibrillation on chronic anticoagulation CAD (coronary artery disease) "nonobstructive" Chronic anemia Chronic kidney disease STAGE 4-F/U DR HERNANDEZ Chronic systolic (congestive) heart failure EF around 30-34% COPD (chronic obstructive pulmonary disease) Diabetic neuropathy DM type 2 (diabetes mellitus, type 2) Dyslipidemia GERD (gastroesophageal reflux disease) History of multiple pulmonary nodules Hypertension LBBB (left bundle branch block) Nocturnal hypoxia on 2L NC O2 HS Nonischemic cardiomyopathy S/p BIV AICD in place Pulmonary HTN PVD (peripheral vascular disease) Sleep apnea BIPAP-OXYGEN 2L/MIN HS Stroke 12/18/19-[facility] ADMISSION-RESIDUAL EFFECTS SPECCH DIFFICULTY-SHORT TERM MEMORY Supratherapeutic INR Thrombocytopenia F/U PCP Surgical History H/O cardiac catheterization Non nonobstructive CAD on 2017 cardiac cath H/O total adrenalectomy LEFT 25 YRS AGO History of colonoscopy History of esophagogastroduodenoscopy (EGD) Presence of combination internal cardiac defibrillator (ICD) and pacemaker Family History Sister Diabetes Brother Diabetes Other Hypertension Lung cancer Social History Smoking Status: Never smoker Tobacco Type: Cigarettes Second Hand Exposure: No; Do You Dip or Chew Tobacco: Yes; Tobacco Cessation Education Requested by Patient: No Hx Alcohol Use: No Hx Substance Use: No Preferred Language: Azeri Communication Ability: Effective Visual Impairment: Limited Enamel Dipper Required: No Beliefs That Will Affect Care: None marital status: Current Living Situation: Spouse current occupational status: retired 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 Other Information That Helps Us Care for You: No Feels Safe at Home: Yes Safety Concerns: Feels Safe At This Time Assistive Devices: CPAP, Glasses and Oxygen - Continuous Review of Systems Review of Systems: All systems reviewed & are unremarkable except as noted in HPI & below Physical Exam Physical Exam: Temp Pulse Resp BP Pulse Ox 36.9 C 80 20 135/74 96 09/17/20 11:17 09/17/20 11:17 09/17/20 11:17 09/17/20 11:17 09/17/20 11:17 Constitutional: WD/WN, vitals as above Respiratory: Mildly reduced breath sounds the bases Cardiovascular: Rate/Rhythm: regular rhythm Heart Sounds: + murmur (I-II/ SM) Extremities: + edema (Trace to 1+ lower extremity edema bilaterally) Gastrointestinal (Abdomen): normal bowel sounds, soft, nontender, no hepatosplenomegaly Neurologic: PERRL, EOMI, accommodation nl, no face palsy, no dysarthria Results & Data ([facility]) Vital Signs (Past 12 Hours) Vital Signs Temp Pulse Pulse Pulse Resp BP BP 09/17/20 11:17 36.9 C 80 20 135/74 09/17/20 09:47 36.7 C 89 22 153/98 H 09/17/20 08:02 88 25 H 120/94 09/17/20 08:00 93 H 17 09/17/20 07:46 91 H 30 H 96/32 L 09/17/20 07:30 94 H 27 H 97/62 L 09/17/20 07:15 92 H 26 H 99/72 L 09/17/20 07:00 98 H 28 H 130/82 09/17/20 06:45 98 H 26 H 111/66 09/17/20 06:31 97 H 27 H 173/85 H 09/17/20 06:30 98 H 26 H 09/17/20 06:20 117 H 24 124/105 H 09/17/20 06:15 108 H 32 H 09/17/20 06:08 78 20 09/17/20 06:00 97 H 25 H 134/105 H 09/17/20 05:45 89 28 H 09/17/20 05:34 102 H 23 121/57 L 09/17/20 05:31 96 H 28 H 102/71 09/17/20 05:30 95 H 29 H 121/57 L 09/17/20 05:15 94 H 29 H 156/78 H 09/17/20 05:00 99 H 23 148/61 H 09/17/20 04:45 95 H 24 154/79 H 09/17/20 04:30 103 H 27 H 134/52 L 09/17/20 04:17 103 H 26 H 09/17/20 04:16 108 H 25 H 128/107 H 09/17/20 04:15 97 H 25 H 09/17/20 04:13 93 H 29 H 100/63 09/17/20 04:11 30 H 09/17/20 04:10 106 H 29 H 09/17/20 04:02 108 H 20 09/17/20 04:01 99 H 30 H 167/128 H 09/17/20 04:00 105 H 31 H 09/17/20 03:59 09/17/20 03:50 36 H 09/17/20 03:41 36.8 C 73 28 H 176/128 H 09/17/20 03:40 117 H 30 H 09/17/20 03:39 117 H 22 09/17/20 03:30 113 H 32 H 09/17/20 03:20 125 H 33 H 09/17/20 03:11 116 H 96 H 20 176/128 H 09/17/20 03:10 115 H 31 H 09/17/20 03:00 137 H 25 H Pulse Ox 09/17/20 11:17 96 09/17/20 09:47 98 09/17/20 08:02 09/17/20 08:00 88 L 09/17/20 07:46 88 L 09/17/20 07:30 97 09/17/20 07:15 97 09/17/20 07:00 97 09/17/20 06:45 97 09/17/20 06:31 97 09/17/20 06:30 97 09/17/20 06:20 97 09/17/20 06:15 97 09/17/20 06:08 96 09/17/20 06:00 98 09/17/20 05:45 97 09/17/20 05:34 97 09/17/20 05:31 97 09/17/20 05:30 97 09/17/20 05:15 98 09/17/20 05:00 84 L 09/17/20 04:45 98 09/17/20 04:30 98 09/17/20 04:17 98 09/17/20 04:16 98 09/17/20 04:15 99 09/17/20 04:13 98 09/17/20 04:11 09/17/20 04:10 93 09/17/20 04:02 96 09/17/20 04:01 94 09/17/20 04:00 97 09/17/20 03:59 99 09/17/20 03:50 80 L 09/17/20 03:41 80 L 09/17/20 03:40 09/17/20 03:39 96 09/17/20 03:30 96 09/17/20 03:20 100 09/17/20 03:11 80 L 09/17/20 03:10 95 09/17/20 03:00 96 Laboratory Results Cardiac Enzymes 09/17/20 09/17/20 09/17/20 Range/Units 03:14 05:49 10:38 AST 26 (15-37) U/L Lactate Dehydrogenase 284 H (87-241) U/L CK-MB (CK-2) 5.7 H (0.5-3.6) ng/ml Troponin I 0.043 0.101 H* (0-0.045) ng/ml Coagulation 09/17/20 Range/Units 03:14 PT 17.7 H (9.0-12.0) Seconds APTT 29.3 (21.0-31.0) Seconds CBC 09/17/20 Range/Units 03:14 WBC 14.01 H (4.8-10.8) K/uL RBC 4.51 L (4.7-6.1) M/uL Hgb 12.7 L (14.0-18.0) g/dL Hct 39.0 L (42-52) % Plt Count 192 (130-400) K/uL Neut # (Auto) 12.02 H (1.4-6.5) K/uL Lymph # (Auto) 1.00 L (1.2-3.4) K/uL [place] # (Auto) 0.89 H (0.11-0.59) K/uL Eos # (Auto) 0.06 (0-0.5) K/uL Baso # (Auto) 0.01 (0-0.2) K/uL Comprehensive Metabolic Panel 09/17/20 Range/Units 03:14 Sodium 139 (136-145) mmol/L Potassium 4.5 (3.5-5.1) mmol/L Chloride 106 (98-107) mmol/L Carbon Dioxide 23 (21-32) mmol/L BUN 55 H (7-18) mg/dl Creatinine 2.86 H (0.6-1.4) mg/dl Glucose 220 H (70-99) mg/dl Calcium 9.2 (8.5-10.1) mg/dl AST 26 (15-37) U/L ALT 30 (12-78) U/L Alkaline Phosphatase 138 H (45-117) U/L Total Protein 7.7 (6.4-8.2) gm/dl Albumin 3.5 (3.4-5.0) gm/dl Intake and Output 09/16/20 09/17/20 09/17/20 22:59 06:59 14:59 Intake Total 370 / 370 Balance 370 / 370 Intake: IV 370 / 370 Magnesium Sulfate / D5w 1 gm In 100 / 100 100 ml @ 100 mls/hr IV NOW STA Rx#:[id number] Piperacillin/Tazobactam 4.5 gm 120 / 120 In 120 ml @ 240 mls/hr IV NOW ONE Rx#:[id number] levoFLOXacin/D5W 750 mg In 150 150 / 150 ml @ 100 mls/hr IV NOW STA Rx#: [id number] Other: # Unmeasured Voids 1 Weight 123.9 kg 119.9 kg Weight Measurement Method Built in Bedscale Standing Scale Patient Weight 09/18/20 06:59 Weight 119.9 kg (1) CHF (congestive heart failure) Heart failure chronicity: unspecified Heart failure type: unspecified Qualified Code(s): I50.9 - Heart failure, unspecified (2) Aortic stenosis Cardiac valve disease etiology: nonrheumatic Qualified Code(s): I35.0 - Nonrheumatic aortic (valve) stenosis
[2020-09-17] MEDS: WARFARIN SOD 10 MG TAB PO SCH (17:31)
[2020-09-17] MEDS: DOXYCYCLINE HYCLATE 100 MG CAP PO SCH (17:32)
[2020-09-17] MEDS: BACLOFEN 10 MG TAB PO SCH (20:32)
[2020-09-17] MEDS ORDERED: INSULIN GLARGINE SOLOSTAR 100 UNITS/ML 3 ML PEN SC STA (21:05)
[2020-09-17] MEDS ORDERED: INSULIN HUMAN REGULAR PER UNIT 6 UNITS in SYRINGE 5.94 ML IV ONE (21:20)
[2020-09-18 06:22] LABS: Hemoglobin 10.6 g/dL (14.0-18.0); Immature Granulocytes # (auto) 0.01 K/uL (0.00-0.02); Immature Granulocytes % (auto) 0.1 %; Lymphocytes # (auto) 0.38 K/uL (1.2-3.4); Lymphocytes % (auto) 4.3 %; Mean Corpuscular Hemoglobin 27.4 pg (25-34); Mean Corpuscular Hgb Conc 32.1 g/dL (32-36); Mean Corpuscular Volume 85.3 fL (80-100); Mean Platelet Volume 9.9 fL (7.4-10.4); Monocytes # (auto) 0.83 K/uL (0.11-0.59); Monocytes % (auto) 9.4 %; Neutrophils # (auto) 7.65 K/uL (1.4-6.5); Neutrophils % (auto) 86.2 %; Platelet Count 136 K/uL (130-400); RDW Standard Deviation 50.4 fL (36.4-46.3); Red Blood Count 3.87 M/uL (4.7-6.1); White Blood Count 8.87 K/uL (4.8-10.8)
[2020-09-18 06:34] LABS: INR 2.2 (0.9-1.1); Prothrombin Time 21.2 Seconds (9.0-12.0)
[2020-09-18] MEDS ORDERED: INSULIN HUMAN REGULAR PER UNIT 6 UNITS in SYRINGE 5.94 ML IV ONE (07:00)
[2020-09-18 07:10] LABS: Estimated Average Glucose 229 mg/dl; Hemoglobin A1C 9.6 % (4.5-5.6)
[2020-09-18 07:16] LABS: BUN Creatinine Ratio 21.3 (10-20); Calcium 8.6 mg/dl (8.5-10.1); Creatinine Clr Calc Pharmacy 25.5 ml/min; Est GFR (African American) 19.2 ml/min; Est GFR (Non-African American) 16.6 ml/min; Magnesium 2.6 mg/dl (1.8-2.4); Potassium 4.7 mmol/L (3.5-5.1)
[2020-09-18] MEDS: INSULIN GLARGINE SOLOSTAR 100 UNITS/ML 3 ML PEN SC SCH (07:41)
[2020-09-18] MEDS: FUROSEMIDE 40 MG in SYRINGE 0 ML IV SCH ×3 (07:42→22:00)
[2020-09-18] MEDS ORDERED: Nursing to Pharmacy Communication SCH (07:45)
--- NOTE | 2020-09-18 08:07 | Hospitalist Progress Note ---
Date of Service September 18, 2020 Assessment & Plan (1) Acute renal failure superimposed on stage 4 chronic kidney disease: ASSESSMENT AND PLAN: This is a 65-year-old male who presents with acute shortness of breath. 1. Acute on chronic systolic and diastolic congestive heart failure, ejection fraction of around 30%-35% and also severe aortic stenosis. CT chest showing pulmonary edema. IV Lasix. 2. Chest pain but that got resolved now. We will follow serial enzymes. 3. Recent COVID diagnosis on 08/05, positive, but we will keep him on contact precautions for now. 4. Diabetes. Rx eval for sugars 5. History of mild chronic obstructive pulmonary disease. Continue with home inhalers and nebulizers p.r.n. 6. Obstructive sleep apnea. Continue CPAP at bedtime. On oxygen while sleeping with CPAP. 7. Chronic kidney disease, baseline creatinine around 2.5-2.8 8. History of hyperlipidemia, on statin. 9. History of atrial fibrillation, rate controlled with Toprol-XL, on Coumadin. 10. History of hypertension, on isosorbide dinitrate, metoprolol, hydralazine, lisinopril, Amlodipine and diuretics. 11. History of cerebrovascular accident. Had issues with speech which is currently improved. Physical therapy and occupational therapy when stable. 12. Deep venous thrombosis prophylaxis, on Coumadin. Monitor PT/INR. DISPOSITION: Tele floor. Level 1 full code. Expect discharge home and follow with family doctor. PT and OT prior to discharge. library services dean to help with discharge planning. Labs Checked ROS-No Headache, No Visual Changes, No Nausea, No Vomiting, No Fever, No Chills, No Neck Pain or Stiffness, No Chest Pain, No Palpitations, No SOB, No TESFAYE, No Cough, No Sputum, No Wheezing, No Abdominal Pain, No Diarrhea, No Hematemesis, No Hemoptysis, No Unexpected Weight Loss, No Flank pain, No Melena, No Hematochezia, No Frequency, No Urgency, No Burning, No Hematuria, No Rashes, No Diaphoresis. Appetite is Normal Physical Exam Gen-AAO x 3, NAD, Afebrile, on BIPAP Head-NCAT, EOMI, PERRLA, Anicteric Sclera, No Posterior Pharyngeal Erythema Neck-Supple, No JVD, No Thyromegaly, No Masses, No LAD, No Bruits Lungs-Clear to Auscultation Bilaterally, No Rales, No Rhonchi, No Wheezing, No Crepitus Chest-No S4, +S1, +S2, No S3, No Murmurs, No Rubs, No Gallops, No Ectopy Abdomen-Soft, Bowel Sounds Present, Non Tender, Non Distended, No Hepatomegaly, No Splenomegaly, No Palpable Masses, No Rebound, No Rigidity, No Guarding Musculoskeletal-Full Range of Motion Bilaterally, No CVAT Extremities-No Cyanosis, No Clubbing, No Edema Nuero-Cranial Nerves II-XII grossly intact, Motor WNL, DTRs WNL, Strength WNL, Non Focal Psych-Normal Mood Admission and Anticipated Discharge Date Admission Date: September 17, 2020 Results & Data Results & Data ([facility]) Vital Signs (Past 12 Hours) Vital Signs Temp Pulse Resp BP Pulse Ox 09/18/20 07:04 36.8 C 77 19 123/78 95 09/18/20 03:43 36.8 C 71 20 131/85 92 09/17/20 23:00 36.8 C 67 22 104/68 92 (1) Acute renal failure superimposed on stage 4 chronic kidney disease Acute renal failure type: unspecified Qualified Code(s): N17.9 - Acute kidney failure, unspecified; N18.4 - Chronic kidney disease, stage 4 (severe)
[2020-09-18] MEDS ORDERED: PHARMACY GLYCEMIC MGMT CONSULT PRN (08:19)
[2020-09-18] MEDS ORDERED: INSULIN HUMAN REGULAR PER UNIT 4 UNITS in SYRINGE 3.96 ML IV ONE (08:30)
[2020-09-18] MEDS: ISOSORBIDE DINITRATE 10 MG TAB PO SCH ×3 (08:44→17:53)
[2020-09-18] MEDS: DOXYCYCLINE HYCLATE 100 MG CAP PO SCH ×2 (08:44→17:53)
[2020-09-18] MEDS: amLODIPine BESYLATE 5 MG TAB PO SCH (08:46)
[2020-09-18] MEDS: GABAPENTIN 100 MG CAP PO SCH ×3 (08:46→17:53)
[2020-09-18] MEDS: METOPROLOL SUCC 50MG EXT REL TAB PO SCH ×2 (08:47→22:01)
[2020-09-18] MEDS: PANTOprazole 40 MG TAB PO SCH (08:47)
[2020-09-18] MEDS: CHOLECALCIFEROL 1,000 UNITS 25 MCG TAB PO SCH (08:48)
[2020-09-18] MEDS: ATORVASTATIN 40 MG TAB PO SCH (08:48)
[2020-09-18] MEDS: hydrALAZINE HCL 25 MG TAB PO SCH ×3 (08:48→22:00)
[2020-09-18] MEDS: ASPIRIN 81 MG ECTAB PO SCH (08:48)
[2020-09-18] MEDS: FLUTICASONE/VILANTEROL 100/25MCG 14 PUFFS/INHALER INH SCH (08:49)
--- NOTE | 2020-09-18 08:57 | Pharmacy Report ---
Pharmacy Glycemic Short Note 2 - Date of Service September 18, 2020 - Glycemic Short BSG Results (Last 24 hours): 09/17/20 09/17/20 09/17/20 11:14 11:15 16:47 Glucose POC Glucose 361 H* 367 H* 474 H* 09/17/20 09/17/20 09/17/20 16:49 20:03 20:06 Glucose POC Glucose 449 H* 542 H* 547 H* 09/17/20 09/18/20 09/18/20 23:10 03:48 03:49 Glucose POC Glucose 456 H* 454 H* 423 H* 09/18/20 09/18/20 05:46 07:03 Glucose 408 H* POC Glucose 414 H* OUTPATIENT ANTIDIABETIC REGIMEN: * Lantus 25 units SC BID * Humalog 5 units SC w/ breakfast, 25 units w/ lunch and dinner, and 15 units with high-carb snack at HS * HbA1c: 9.6% (09/18/20) ASSESSMENT: * BRITTANY is a 65 year old male who presented on 09/17/20 with worsening shortness of breath, especially on exertion * Presumed CHF exacerbation * BSGs significantly elevated since time of admission, ranging 361 - 542 mg/dL * Received 72 units of insulin in the hospital yesterday (25 units of basal, 41 units of SC bolus, and 6 units of IV insulin) * Received dexamethasone 10 mg IV x 1 yesterday morning * Pharmacy consulted for glycemic management this morning 09/18/20 - BSG of 414 mg/dL * Will give a one-time 10 units IV insulin bolus this morning, tighten Novolog parameters, and give increased Lantus dose due to presumed basal deficiency * Unfortunately, BSG at lunch is 393 mg/dL -> will prioritize safety and utilize insulin infusion to lower BSGs * Patient recently admitted in July 2020 for COVID-19 pneumonia - will utilize BSG data during that time to guide dosing PLAN FOR INPATIENT GLYCEMIC CONTROL: * Insulin infusion - * Goal range: 110-180 mg/dL * Basal insulin * Lantus 40 units SQ x 1 this morning * Bolus insulin - utilize fixed carb ratio * NovoLog per scale ACHS * Nutritional / Prandial insulin per carb ratio of 1 unit per 3 grams CHO consumed with breakfast, lunch, and dinner * Nutritional / Prandial insulin per carb ratio of 1 unit per 13 grams CHO consumed with bed-time snack PLAN FOR DISCHARGE: * tbd
[2020-09-18] MEDS ORDERED: INSULIN GLARGINE SOLOSTAR 100 UNITS/ML 3 ML PEN SC ONE ×2 (09:00→21:30)
[2020-09-18] MEDS ORDERED: INSULIN GLARGINE SOLOSTAR 100 UNITS/ML 3 ML PEN SC SCH (09:00)
[2020-09-18] MEDS: INSULIN ASPART 100 UNITS/ML 3 ML PEN SC SCH ×3 (09:32→12:31)
[2020-09-18] MEDS ORDERED: INSULIN PROTOCOL GOAL RANGE ONE (11:52)
[2020-09-18] MEDS ORDERED: SEVERE STRESS LEVEL ONE (11:52)
[2020-09-18] MEDS ORDERED: INSULIN HUMAN REGULAR PER IV ONE (12:00)
[2020-09-18] MEDS ORDERED: INSULIN ASPART 100 UNITS/ML 3 ML PEN SC SCH ×3 (12:00→21:00)
[2020-09-18] MEDS ORDERED: INSULIN REGULAR 250 UNITS in SODIUM CHLORIDE 0.9% 247.5 ML IV SCH (12:00)
[2020-09-18] MEDS: ASCORBIC ACID 500 MG TAB PO SCH ×2 (12:24→22:03)
[2020-09-18] MEDS: FERROUS SULFATE 325 MG TAB PO SCH ×2 (12:25→22:03)
[2020-09-18] MEDS: FERROUS FUMARATE/ASCORBIC ACID 65 MG CAPCR PO SCH (12:31)
[2020-09-18] MEDS ORDERED: WARFARIN SOD 5 MG TAB PO SCH (16:00)
--- NOTE | 2020-09-18 16:32 | Cardiology Progress Note ---
Date of Service September 18, 2020 Assessment & Plan (1) CHF (congestive heart failure): -Acute on chronic systolic heart failure. Very curious diuresis pattern. No significant output yesterday during the a.m. but then over 2 L negative overnight. Patient does not examine his volume overloaded at this time and would be okay to discharge to home from a cardiac standpoint. Recommend discharging home on torsemide 40 mg p.o. every morning and 20 mg p.o. every afternoon. Otherwise continue current doses of amlodipine, atorvastatin, aspirin, hydralazine, metoprolol Isordil and warfarin as per the [facility] clinic. My office will call to arrange close follow-up in the CHF clinic early next week. (2) CKD (chronic kidney disease) stage 4, GFR 15-29 ml/min: -Most recent outpatient creatinine had been 2.8, EGFR 22.3 on 08/31/2020, therefore current renal function is not far from his usual baseline. (3) Chronic atrial fibrillation: INR 1.8. Initial EKG revealed atrial fibrillation with left bundle branch block. Now ventricular paced in the 80s. -Continue Coumadin, goal INR 23. (4) Aortic stenosis: -Management of his atrial fibrillation, complicated by his renal insufficiency. -I do not think that vascular intervention could be pursued without excepting significant risk of dialysis dependence. -Of note, at the time of the patient's recent outpatient visit on 08/17/2020, discussion took place with regards to preoperative evaluation prior to cholecystectomy. Patient considered to be high risk for perioperative cardiac and noncardiac complication including progressive renal insufficiency, and continues as such. Admission and Anticipated Discharge Date Admission Date: September 17, 2020 Subjective Patient seen and examined, chart reviewed. States he feels well. Notes that his breathing is back to baseline and he feels he is ready to be discharged. Denies chest pain, palpitations, lightheadedness or dizziness. Telemetry reviewed: Atrial fibrillation with underlying left bundle branch block. Review of Systems Review of Systems: All systems reviewed & are unremarkable except as noted in HPI & below Physical Exam Physical Exam: General: Awake, alert and oriented x 3. No acute distress. HEENT: Normocephalic, atraumatic. Pupils equal, round and reactive to light and accommodation. Extraocular muscles are intact. Anicteric sclera. Moist mucous membranes. Neck: No JVD. No bruit. Cardiovascular: Regular. Positive S-4. Normal S-1 and S-2. No S-3. 3/6 mid to late systolic ejection murmur, greatest at the right sternal border, second intercostal space with radiation to the bilateral carotids. No rubs. Pulmonary: Clear to auscultation bilaterally. No rales, rhonchi, or wheezing. Abdomen: Bowel sounds x 4, soft. No rebound, guarding or tenderness. No organomegaly. Extremities: No clubbing, cyanosis or edema. +2 pedal pulses bilaterally. Skin: Warm and dry. Results & Data ([facility]) Vital Signs (Past 12 Hours) Vital Signs Temp Pulse Pulse Resp BP Pulse Ox 09/18/20 15:19 37.1 C 81 19 136/80 96 09/18/20 15:05 81 09/18/20 11:17 36.9 C 70 19 112/80 96 09/18/20 08:00 82 09/18/20 07:04 36.8 C 77 19 123/78 95 (1) CHF (congestive heart failure) Heart failure chronicity: unspecified Heart failure type: unspecified Qualified Code(s): I50.9 - Heart failure, unspecified (2) Aortic stenosis Cardiac valve disease etiology: nonrheumatic Qualified Code(s): I35.0 - Nonrheumatic aortic (valve) stenosis
[2020-09-18] MEDS: BACLOFEN 10 MG TAB PO SCH (22:02)
[2020-09-19] MEDS: DOXYCYCLINE HYCLATE 100 MG CAP PO SCH (07:10)
[2020-09-19] MEDS: FUROSEMIDE 40 MG in SYRINGE 0 ML IV SCH (07:42)
[2020-09-19] MEDS: FLUTICASONE/VILANTEROL 100/25MCG 14 PUFFS/INHALER INH SCH (07:42)
[2020-09-19] MEDS: ISOSORBIDE DINITRATE 10 MG TAB PO SCH ×3 (07:43→15:44)
[2020-09-19] MEDS: ASCORBIC ACID 500 MG TAB PO SCH (07:43)
[2020-09-19] MEDS: PANTOprazole 40 MG TAB PO SCH (07:43)
[2020-09-19] MEDS: hydrALAZINE HCL 25 MG TAB PO SCH ×2 (07:44→15:42)
[2020-09-19] MEDS: ASPIRIN 81 MG ECTAB PO SCH (07:45)
[2020-09-19] MEDS: GABAPENTIN 100 MG CAP PO SCH ×3 (07:45→15:43)
[2020-09-19] MEDS: FERROUS SULFATE 325 MG TAB PO SCH (07:45)
[2020-09-19] MEDS: METOPROLOL SUCC 50MG EXT REL TAB PO SCH (07:46)
[2020-09-19] MEDS: amLODIPine BESYLATE 5 MG TAB PO SCH (07:46)
[2020-09-19] MEDS: ATORVASTATIN 40 MG TAB PO SCH (07:46)
[2020-09-19] MEDS: INSULIN ASPART 100 UNITS/ML 3 ML PEN SC SCH ×2 (07:48→11:42)
[2020-09-19] MEDS: CHOLECALCIFEROL 1,000 UNITS 25 MCG TAB PO SCH (07:48)
[2020-09-19 07:54] LABS: INR 2.7 (0.9-1.1); Prothrombin Time 24.9 Seconds (9.0-12.0)
--- NOTE | 2020-09-19 08:32 | Pharmacy Report ---
Pharmacy Glycemic Short Note 2 - Date of Service September 19, 2020 - Glycemic Short BSG Results (Last 24 hours): 09/18/20 09/18/20 09/18/20 10:47 11:40 11:41 POC Glucose 380 H* 393 H* 393 H* 09/18/20 09/18/20 09/18/20 13:27 14:28 15:35 POC Glucose 347 H* 337 H* 266 H 09/18/20 09/18/20 09/18/20 16:30 17:30 18:48 POC Glucose 188 H 192 H 370 H* 09/18/20 09/18/20 09/18/20 19:50 20:57 21:54 POC Glucose 221 H 264 H 209 H 09/18/20 09/18/20 09/18/20 22:40 23:53 23:55 POC Glucose 174 H 465 H* 106 H 09/18/20 09/19/20 09/19/20 23:59 00:50 02:35 POC Glucose 114 H 84 64 L* 09/19/20 09/19/20 09/19/20 02:52 05:57 07:09 POC Glucose 80 84 90 OUTPATIENT ANTIDIABETIC REGIMEN: * Lantus 25 units SC BID * Humalog 5 units SC w/ breakfast, 25 units w/ lunch and dinner, and 15 units w ith high-carb snack at HS * HbA1c: 9.6% (09/18/20) ASSESSMENT: 09/19 * BSGs trended down nicely yesterday with insulin infusion (titrated off around midnight) * Fasting BSG this morning of 90 mg/dL * Patient's persistent hyperglycemia yesterday despite numerous IV insulin boluses likely result of basal deficiency (missed outpatient doses? + suboptimal inpatient Lantus dosing on first day of hospitalization) * Patient given 60 units of Lantus yesterday, which should help make up for this deficiency 09/18: * BRITTANY is a 65 year old male who presented on 09/17/20 with worsening shortness of breath, especially on exertion * Presumed CHF exacerbation * BSGs significantly elevated since time of admission, ranging 361 - 542 mg/dL * Received 72 units of insulin in the hospital yesterday (25 units of basal, 41 units of SC bolus, and 6 units of IV insulin) * Received dexamethasone 10 mg IV x 1 yesterday morning * Pharmacy consulted for glycemic management this morning 6/1/21 - BSG of 414 mg/dL * Will give a one-time 10 units IV insulin bolus this morning, tighten Novolog parameters, and give increased Lantus dose due to presumed basal deficiency * Unfortunately, BSG at lunch is 393 mg/dL -> will prioritize safety and utilize insulin infusion to lower BSGs * Patient recently admitted in July 2020 for COVID-19 pneumonia - will utilize BSG data during that time to guide dosing PLAN FOR INPATIENT GLYCEMIC CONTROL: * Basal insulin * Lantus 15 units SC x 1 this morning * Will utilize Lantus scale BID thereafter to provide 15-25 units (see EHR for details) * Bolus insulin * NovoLog per scale ACHS * Correction Factor: 12 mg/dL/unit with breakfast, lunch, and dinner * Correction Factor: 30 mg/dL/unit at bedtime * Nutritional / Prandial insulin per carb ratio of 1 unit per 3 grams CHO consumed with breakfast, lunch, and dinner * Nutritional / Prandial insulin per carb ratio of 1 unit per 13 grams CHO consumed with bed-time snack PLAN FOR DISCHARGE: * Patient's HbA1c of 9.6% suggests poor outpatient glycemic control * BSGs on admission > 300 mg/dL - may be result of missed doses and/or carbohydrate heavy diet * Will follow inpatient insulin needs and suggest changes as appropriate * At this point, it seems reasonable to increase morning Humalog as 5 units is likely inadequate given BSG trends from this and prior admission * At this point, increasing to morning Humalog to 10 units seems reasonable * Patient follows with [facility] in [place] - ensure prompt outpatient follow-up upon discharge
[2020-09-19] MEDS ORDERED: INSULIN GLARGINE SOLOSTAR 100 UNITS/ML 3 ML PEN SC ONE (09:00)
[2020-09-19 09:56] LABS: Basophils # (auto) 0.02 K/uL (0-0.2); Basophils % (auto) 0.3 %; Eosinophils # (auto) 0.07 K/uL (0-0.5); Eosinophils % (auto) 1.1 %; Hematocrit (blood only) 33.5 % (42-52); Hemoglobin 10.6 g/dL (14.0-18.0); Immature Granulocytes # (auto) 0.01 K/uL (0.00-0.02); Immature Granulocytes % (auto) 0.2 %; Lymphocytes # (auto) 0.79 K/uL (1.2-3.4); Lymphocytes % (auto) 12.5 %; Mean Corpuscular Hgb Conc 31.6 g/dL (32-36); Mean Corpuscular Volume 85.5 fL (80-100); Mean Platelet Volume 10.2 fL (7.4-10.4); Monocytes % (auto) 7.9 %; Neutrophils # (auto) 4.91 K/uL (1.4-6.5); Platelet Count 151 K/uL (130-400); RDW Coefficient of Variation 16.1 % (11.5-14.5); RDW Standard Deviation 50.6 fL (36.4-46.3); Red Blood Count 3.92 M/uL (4.7-6.1)
[2020-09-19 10:30] LABS: BUN Creatinine Ratio 24.1 (10-20); Calcium 9.2 mg/dl (8.5-10.1); Creatinine Clr Calc Pharmacy 25.4 ml/min; Est GFR (African American) 19.2 ml/min; Est GFR (Non-African American) 16.6 ml/min; Potassium 3.9 mmol/L (3.5-5.1)
[2020-09-19 11:26] VITALS: TEMP 98.2
--- NOTE | 2020-09-19 13:45 | Progress Notes ---
DATE: 09/19/2020 REASON FOR CONSULT: Acute renal failure with chronic kidney CKD IV and advanced congestive heart failure. HISTORY OF PRESENT ILLNESS: The patient is a 65-year-old male with chronic kidney disease stage IV with more recent baseline creatinine in the high 2s as well as advanced cardiac disease who presented to the hospital 2 days ago with shortness of breath. It appears he went into a flash pulmonary edema type situation. EMS was called and he was brought to the hospital. He was initially placed on BiPAP, but he could not tolerate and subsequently he was placed on high-flow oxygen. He did have COVID infection recently last month. The patient appears to be significantly better now than when he came in. His creatinine was slightly higher than baseline. This morning labs showed 3.60 and BUN was 87, creatinine yesterday was also same at 3.6, but on admission was 2.86, which is pretty much his baseline. He is currently getting IV Lasix. At home, he was getting torsemide 10 mg daily. He is making good bit of urine about 2300 mL yesterday. Hemodynamically is better now and he is now on room air with 95% oxygen saturation. Cardiology has seen the patient already today and has suggested he is stable from cardiac standpoint and the plan is to increase his outpatient diuretics. PAST MEDICAL AND SURGICAL HISTORY: Includes type 2 diabetes, hyperlipidemia, history of pancreatitis, gallstones, COPD, obstructive sleep apnea on CPAP with oxygen, history of pulmonary nodule, chronic kidney disease stage IV with a more recent baseline creatinine of 2.7, chronic systolic congestive heart failure, atrial fibrillation, history of left middle cerebral artery stroke, nonrheumatic aortic valve stenosis, hypertension, left bundle branch block, pulmonary hypertension, peripheral vascular disease, obesity, gastroparesis, history of noncompliance, status post AICD, history of chewing tobacco, history of dietary nonadherence. ALLERGIES: None. PAST SURGICAL HISTORY: Adrenal gland removal to control blood pressure, cardiac catheterization, colonoscopy, EGD with endoscopic ultrasound, injection of the lumbar and cervical spine, status post defibrillator. MEDICATIONS AT HOME: Reviewed. It appears he is on torsemide 10 mg daily as well as lisinopril 10 mg daily as well as multiple other medications, which was reviewed in detail. FAMILY HISTORY: Positive for lung cancer in his brother, but he has ESRD or renal disease. SOCIAL HISTORY: He is and lives with his . He still chews tobacco. No alcohol, no drugs. REVIEW OF SYSTEMS: As per HPI, unless stated otherwise, 12 systems reviewed and negative. Positive review of system included sudden onset of shortness of breath, but otherwise unremarkable. PHYSICAL EXAMINATION: GENERAL: Middle-aged white male who does not appear to be in any respiratory distress at this point of time, he is obese. He is awake, alert, oriented x3. HEENT: Mucous membrane is moist. NECK: Supple. No jugular venous distention. CHEST: Bilateral clear to auscultation at this time. CARDIOVASCULAR: S1 and S2 regular. No murmur or gallop heard. ABDOMEN: Soft, bowel sounds present, nontender. EXTREMITIES: Shows trace edema at this time, which appears to be much better than when he presented. LABORATORY TESTS: Reviewed in detail. At baseline, his creatinine is around 2.7 and was at the same level on admission, but this morning is 3.6, BUN is 87. Sodium 142, potassium 3.9, hemoglobin 10.6, WBC count 6.3, platelet count 151. Urine dipstick showed active urine sediment with lots of epithelial cells, 3+ protein, but negative blood. CT scan of the chest was also done, which showed bilateral pleural effusion as well as pulmonary edema. ASSESSMENT AND PLAN: A 65-year-old male with known disease stage IV with baseline creatinine recently around 2.7. Admitted with worsened congestive heart failure. Also, the renal function seems to be worse for which I have been consulted. Acute renal failure: The acute component is quite minimal as even at baseline he has around 2.6. I believe this is more of a progression of his chronic kidney disease associated with progression of his cardiac disease. Renal prognosis is poor. I agree with increasing the dose of diuretics as suggested by Cardiology. He will follow with Dr. 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 Creatinine today and yesterday was around the same, so I believe he can be discharged from renal standpoint with close followup as well as outpatient labs. He does need to be better with dietary adherence given delicate situation from pulmonary edema. No further workup is needed. He already had abdominal pelvis CT scan and kidneys appeared to be stable with renal cyst, but no hydronephrosis.
[2020-09-19 15:34] VITALS: O2SAT 96
[2020-09-19] MEDS: WARFARIN SOD 10 MG TAB PO SCH (15:40)
[2020-09-19 15:50] VITALS: BP 128/81; PULSE 89
--- NOTE | 2020-09-19 15:54 | Hospitalist Progress Note ---
Date of Service September 19, 2020 Assessment & Plan (1) Acute renal failure superimposed on stage 4 chronic kidney disease: ASSESSMENT AND PLAN: This is a 65-year-old male who presents with acute shortness of breath. 1. Acute on chronic systolic and diastolic congestive heart failure, ejection fraction of around 30%-35% and also severe aortic stenosis. -- CT chest showing pulmonary edema. -- B2B Appointment Setter consulted- Dr. Kyrie MILLIGAN Lasix given with good diuresis -- per B2B Appointment Setter: Recommend discharging home on torsemide 40 mg p.o. every morning and 20 mg p.o. every afternoon. ff up in CHF Clinic in 1 week (2) CKD (chronic kidney disease) stage 4, GFR 15-29 ml/min: -Most recent outpatient creatinine had been 2.8, EGFR 22.3 on 08/31/2020, therefore current renal function is not far from his usual baseline. 2. Chest pain -- resolved 3. Recent COVID diagnosis on 08/05 -- no symptoms from COVID 4. Diabetes. -- outpatient ff up 5. History of mild chronic obstructive pulmonary disease. -- not in exacerbation -- Continue with home inhalers and nebulizers p.r.n. 6. Obstructive sleep apnea. -- Continue CPAP at bedtime. On oxygen while sleeping with CPAP. 7. Chronic kidney disease, baseline creatinine around 2.5-2.8 -- crea 3.[address] Ramos consulted likely secondary to progression of CKF and CHF -- monitor closely 8. History of hyperlipidemia, on statin. 9. History of atrial fibrillation, rate controlled with Toprol-XL, on Coumadin. 10. History of hypertension, on isosorbide dinitrate, metoprolol, hydralazine, lisinopril, Amlodipine and diuretics. 11. History of cerebrovascular accident. Had issues with speech which is currently improved. 12. Deep venous thrombosis prophylaxis, on Coumadin. Monitor PT/INR. DISPOSITION:d/c home with home health services Admission and Anticipated Discharge Date Admission Date: September 17, 2020 Subjective ff up for CHF etc seen resting in bed, sitting up comfortable states he feels much better overall no shortness of breath, chest pain, dizziness, palpitations no other symptoms states he is ready and would like to be discharged Review of Systems Review of Systems: All systems reviewed & are unremarkable except as noted in HPI & below Physical Exam Physical Exam: General- oriented x 2, not in distress, speaks in sentences with no effort or accessory muscle use Eyes- anicteric Neck- no JVD Lungs- clear breath sounds bilaterally, no rales/wheezes Heart- normal rate, regular rhythm; no murmurs Abdomen- normal bowel sounds, nondistended, soft, nontender Extremities- no pretibial edema, no calf tenderness Neuro- alert, oriented x 2; no gross focal neurologic deficits Skin- warm & dry Results & Data Results & Data ([facility]) Vital Signs (Past 12 Hours) Vital Signs Temp Pulse Pulse Pulse Resp BP BP 09/19/20 15:48 36.8 C 89 77 20 119/65 128/81 09/19/20 15:34 36.8 C 77 20 119/65 09/19/20 11:24 36.8 C 78 20 128/81 09/19/20 08:00 69 09/19/20 07:08 36.4 C L 68 20 137/89 Pulse Ox 09/19/20 15:48 96 09/19/20 15:34 96 09/19/20 11:24 95 09/19/20 08:00 09/19/20 07:08 96 all noted and reviewed including below (1) Acute renal failure superimposed on stage 4 chronic kidney disease Acute renal failure type: unspecified Qualified Code(s): N17.9 - Acute kidney failure, unspecified; N18.4 - Chronic kidney disease, stage 4 (severe)
[2020-09-19] MEDS ORDERED: INSULIN ASPART 100 UNITS/ML 3 ML PEN SC SCH (21:00)
[2020-09-19] MEDS ORDERED: INSULIN GLARGINE SOLOSTAR 100 UNITS/ML 3 ML PEN SC SCH (21:00)
--- NOTE | 2020-09-27 11:23 | Discharge Summary ---
Date of Service September 27, 2020 Admission HPI Per Admitting Provider CHIEF COMPLAINT: Shortness of breath. HISTORY OF PRESENT ILLNESS: This is a 65-year-old male with past medical history significant for type 2 diabetes, history of hyperlipidemia, history of pancreatitis, gallstones, COPD, mild obstructive sleep apnea, on CPAP with oxygen, mild persistent asthma, pulmonary nodules, chronic sinusitis, chronic systolic CHF, nonischemic cardiomyopathy, atrial fibrillation, history of left middle cerebral artery stroke, nonrheumatic aortic valve stenosis, hypertension, left bundle branch block, pulmonary hypertension, peripheral vascular disease, obesity, gastroparesis, history of noncompliance, status post AICD, history of chewing tobacco. The patient lives with his , presents with shortness of breath. The patient states yesterday he went to [employer] and ate eggs and sosa. Last night, in the middle of the night, he woke up suddenly with shortness of breath. He could not catch his breath and he was breathing heavily. EMS was called and brought in here. Initially placed on BiPAP, but he could not tolerate. They placed him on high flow. His white count is elevated at 14. Lactate was okay at 0.9. Troponin 0.04. Procalcitonin is okay at 0.08. Urinalysis is negative. GLENDA-CoV-2 PCR is positive but he had SARS-CoV-2 last month even after the second dose of COVID vaccine. He was diagnosed with covid on 08/05. Currently he says he still has some dry cough; when he felt short of breath, he had some chest pain that is resolved now. No nausea, no vomiting, no abdominal pain. No headache, no blurred vision, no earache, no runny nose, no sore throat. Appetite is good. Normal bowel and bladder movements. Ambulates without any support at home. Received Lasix. Currently saturating okay on 4 liters and resting comfortably. ALLERGIES: No known drug allergies. PAST MEDICAL HISTORY: As mentioned above. PAST SURGICAL HISTORY: History of adrenal gland removal to control BP, cardiac catheterization, colonoscopy, EGD with endoscopic ultrasound, injection of lumbar and cervical spine, status post defibrillator, skin cancer removed from behind the left ear. MEDICATIONS: Currently, the patient is on albuterol 2 puffs q.4 hours p.r.n., aspirin 81 mg p.o. daily, atorvastatin 80 mg p.o. daily, baclofen 10 mg p.o. at bedtime, Breo Ellipta 1 inhalation daily, vitamin D 2000 units p.o. a.m., Flonase 2 sprays intranasally daily p.r.n., gabapentin 100 mg p.o. t.i.d., hydralazine 75 mg p.o. t.i.d., insulin sliding scale, DuoNeb 3 mL q.i.d. p.r.n., isosorbide dinitrate 10 mg p.o. t.i.d., Lantus 25 units b.i.d., lisinopril 10 mg p.o. daily, metoprolol succinate 100 mg p.o. a.m., Protonix 40 mg p.o. a.m., torsemide 10 mg p.o. a.m., Vitron-C 1 tablet p.o. b.i.d., warfarin 10 mg or 5 mg as directed. Admission Exam Per Admitting Provider PHYSICAL EXAMINATION: GENERAL: The patient is obese, currently not in acute distress. VITAL SIGNS: Temperature 36.8, pulse 98, respiratory rate 28, blood pressure 130/82, oxygen 97% on 4 liters. HEENT: Pupils equal, round, reactive to light. Oral mucosa moist. NECK: No JVD, no neck masses. CARDIOVASCULAR: S1, S2 heard, regular rate and rhythm, no murmur, no gallop. RESPIRATORY SYSTEM: Normal AP diameter. Mild occasional bilateral wheezing, bibasilar crackles. ABDOMEN: Soft, bowel sounds present, nontender. No distention. CENTRAL NERVOUS SYSTEM: Cranial nerves II-XII are grossly intact. Nonfocal. EXTREMITIES: Bilateral lower extremity +2 edema present, no erythema seen. Principal Diagnosis Acute on Chronic Systolic Congestive Heart Failure Discharge Exam General- oriented x 2, not in distress, speaks in sentences with no effort or accessory muscle use Eyes- anicteric Neck- no JVD Lungs- clear breath sounds bilaterally, no rales/wheezes Heart- normal rate, regular rhythm; no murmurs Abdomen- normal bowel sounds, nondistended, soft, nontender Extremities- no pretibial edema, no calf tenderness Neuro- alert, oriented x 2; no gross focal neurologic deficits Skin- warm & dry Discharge Data Allergies Allergy/AdvReac Type Severity Reaction Status Date / Time No Known Allergies Allergy Verified 09/17/20 07:03 Consultations 09/17/20 04:08 ED Decision to Admit Stat 09/17/20 10:09 Consult Cardiology Routine 09/18/20 14:53 Consult Nephrology Routine Ordered Studies 09/17/20 03:45 CT abd pelvis wo con Urgent CT DOSE: 2563.76 mGy.cm FINDINGS: Lower chest: There are small bilateral pleural effusions. There is groundglass attenuation the lungs with interlobular septal edema. There is a partially visualized 9 mm left lower lobe groundglass nodule. Liver: No space-occupying hepatic masses are visualized in this noncontrast study. Gallbladder: Cholelithiasis. Mild gallbladder distention. There is an equivocal common bile duct calculus. An MRCP could be obtained in follow-up as deemed clinically appropriate. Spleen: Normal in size and attenuation. Pancreas: Unremarkable. Adrenal glands: Unremarkable. Kidneys: There is a 41 mm left renal cyst. No renal, ureteral, or bladder calculi identified. Bowel: There are no transition zones to indicate bowel obstruction. There is no evidence of acute diverticulitis. The appendix appears normal. Peritoneum: There is trace pericardial fluid. There is no free intraperitoneal air. Vasculature: There is no evidence of abdominal aortic aneurysm. Adenopathy: There is no pathologic adenopathy. Pelvic viscera: There is borderline bladder wall thickening. There is trace gas versus fat within the left lateral bladder. Skeletal structures: No destructive osseous lesions are seen. The examination is motion compromised. IMPRESSION: 1. No evidence of bowel obstruction. No evidence of free air 2. Normal appendix. No evidence of acute diverticulitis 3. Groundglass pulmonary opacities, small bilateral pleural effusions, interlobular septal thickening likely secondary to pulmonary edema 4. Partially visualized 9 mm left lower lobe groundglass pulmonary nodule 5. No renal, ureteral, or bladder calculi identified 6. Cholelithiasis, and equivocal common bile duct calculus. An MRCP could be obtained in follow-up as deemed clinically appropriate. 7. Motion compromised study Please refer to below summary of Fleischner criteria recommendations for follow- up of incidental CT nodules (Rosetta Villalobos, Guidelines for management of small pulmonary nodules detected on CT scans: A statement from the Fleischner Society, Radiology 237: [phone].) SOLID NODULES Solitary nodule size: <6 mm * low risk patients: no follow-up needed * high risk patients: optional CT at 12 months Solitary nodule size: 6-8 mm * low risk patients: follow-up at 6-12 months, then consider further follow-up at 18-24 months * high risk patients: initial follow-up CT at 6-12 months and then at 18-24 months if no change Solitary nodule size: >8 mm * either low or high risk patients - consider follow-up CT at 3 months, and/or CT-PET, and/or biopsy Multiple nodules size: <6 mm * low risk patients: no routine follow-up * high risk patients: optional CT at 12 months Multiple nodules size: 6-8 mm * low risk patients: follow-up at 3-6 months, then consider further follow-up at 18-24 months * high risk patients: follow-up at 3-6 months, then at 18-24 months if no change Multiple nodules size: >8 mm * low risk patients: follow-up at 3-6 months, then consider further follow-up at 18-24 months * high risk patients: follow-up at 3-6 months, then at 18-24 months if no change Note: newly detected indeterminate nodule in persons 35 years of age or older. * low risk patients: minimal or absent history of smoking and/or other known risk factors * high risk patients: history of smoking or of other known risk factors (e.g. first degree relative with lung cancer, or exposure to asbestos, radon, uranium) * if a nodule up to 8 mm is partly solid or is ground glass further follow-up is required after 24 months to exclude possible slow growing adenocarcinoma (HIRA) SUBSOLID NODULES Solitary pure ground-glass nodule * nodule size <6 mm - no CT follow-up required * nodule size >=6 mm - follow-up CT at 6-12 months, then every 2 years until 5 years Solitary part-solid nodule * nodule size <6 mm - no CT follow-up required * nodule size >=6 mm - follow-up CT at 3-6 months. If unchanged, and solid component remains <6 mm, then annual follow-up for 5 years Multiple subsolid nodules * nodule size <6 mm - follow-up CT at 3-6 months, consider further follow-up at 2 and 4 years if stable * nodule size >=6 mm - follow-up CT at 3-6 months, subsequent management based on the most suspicious nodule(s) CT chest diagnostic wo con CLINICAL HISTORY: Atypical chest pain and sepsis COMPARISON STUDY: 05/18/2018 CT DOSE: TECHNIQUE: CT of the thorax was performed from the thoracic inlet to the lung bases. Images are reviewed in the axial, sagittal, and coronal planes. IV contrast was not administered for this examination. A dose lowering technique was utilized adhering to the principles of ALARA. FINDINGS: Thyroid: Imaged portions of the thyroid gland are normal in appearance. Thoracic aorta: There is mild ectasia of descending thoracic aorta which measures 37 mm. Heart: The heart is enlarged with coronary calcifications. There are small pericardial effusion. Cardiac electrodes are visualized. Lungs and pleural spaces: There are small bilateral pleural effusions. There is respiratory motion artifact. There is groundglass attenuation the lungs with more focal airspace opacities within the base the right upper lobe, pneumonia versus focal edema. There is mild interlobular septal thickening. Mediastinum: There are mildly enlarged mediastinal lymph nodes. Luisa: Hilar lymph nodes are the upper limits of normal in size. Axilla: Clear. Upper abdomen: There is a 36 mm left renal cyst Skeletal structures: There are no lytic or blastic osseous lesions. IMPRESSION: 1. Small bilateral pleural effusions and mild interlobular septal thickening 2. Groundglass pulmonary opacities, likely representing pulmonary edema. There are more focal airspace opacities within the right upper lobe posteriorly, pneumonia versus focal edema 3. Mildly enlarged mediastinal lymph nodes 4. Motion compromised study Diabetes Follow up Diabetes Follow-up Needed for HgbA1c >9% Hospital Course (1) Acute renal failure superimposed on stage 4 chronic kidney disease: ASSESSMENT AND PLAN: This is a 65-year-old male who presents with acute shortness of breath. Acute on chronic systolic and diastolic congestive heart failure, ejection fraction of around 30%-35% and also severe aortic stenosis. -- CT chest showing pulmonary edema. -- Resource Conservation Manager consulted- Dr. Mittal IV Lasix given with good diuresis -- per Resource Conservation Manager: Recommend discharging home on torsemide 40 mg p.o. every morning and 20 mg p.o. every afternoon. ff up in [facility]F Clinic in 1 week Chest pain -- resolved Recent COVID diagnosis on 08/05 -- no symptoms from COVID Abnormal CT Scan Findings -- Please refer to full report in the Ordered Studies section above -- Partially visualized 9 mm left lower lobe groundglass pulmonary nodule Cholelithiasis, and equivocal common bile duct calculus. An MRCP could be obtained in follow-up as deemed clinically appropriate. -- Further work up, management, and ff up as outpatient Diabetes -- outpatient ff up History of mild chronic obstructive pulmonary disease. -- not in exacerbation -- Continue with home inhalers and nebulizers p.r.n. Obstructive sleep apnea. -- Continue CPAP at bedtime. On oxygen while sleeping with CPAP. Chronic kidney disease, baseline creatinine around 2.5-2.8 -- crea 3.[address] Ramos consulted likely secondary to progression of CKF and CHF -- monitor closely History of hyperlipidemia, on statin. History of atrial fibrillation, rate controlled with Toprol-XL, on Coumadin. History of hypertension, on isosorbide dinitrate, metoprolol, hydralazine, lisinopril, Amlodipine and diuretics. History of cerebrovascular accident. Had issues with speech which is currently improved. Deep venous thrombosis prophylaxis, on Coumadin. Monitor PT/INR. DISPOSITION:d/c home with home health services Total Time Total Time Spent Total Time Spent (In Minutes): > 30 minutes Discharge Plan Discharge Items Patient Disposition: Home - Self-Care Reason For Visit: SOB Discharge Diagnosis: ACUTE ON CHRONIC CONGESTIVE HEART FAILURE Activity: As commented below Activity Comment: RESUME GRADUALLY TOLERATED Lifting: Wait until after follow-up appointment Exercise/Sports: Wait until after follow-up appointment Driving/Machine Use: NO DRIVING UNTIL RE-EVALUATED AND ALLOWED BY PRIMARY CARE PHYSICIAN Non-emergency contact: Primary Care Provider and Resource Conservation Manager Call non-emergency contact if: you have any medication questions, your symptoms worsen, your pain is not controlled, your pain is worsening, your pain is unusual for you, your pain is concerning for you and you have a fever Follow-up/Referrals: Marielena Bar PA-C [Physician Business Banking Officer] - (Date & Time 10/09/2020 2:30 PM Provider Marielena Bar PA-C Department Nephrology [facility] ) Isabel Bergman PA-C [Physician Business Banking Officer] - (Date & Time 09/26/2020 3:00 PM Provider Isabel Bergman PA-C Department Cardiology, [facility] ) Mirlande Melton MD [Primary Care Provider] - Diet: Heart Healthy and Low Sodium (2gm) Fluids: 1800ml (7 cups) Addtl Attending Provider Instructions: YOUR TORSEMIDE IS BEING INCREASED- NOW 40MG IN THE MORNING AND 20MG IN THE AFTERNOON. PLEASE REVIEW YOUR NEW MEDICATION LIST AND FOLLOW INSTRUCTIONS CAREFULLY. DO NOT TAKE MEDICATIONS UNDER THE CLASS OF NSAIDS SUCH IBUPROFEN, NAPROXEN, ETC. ALWAYS SPEAK WITH YOUR DOCTOR BEFORE STARTING ANY NEW MEDICATION. CALL YOUR DOCTOR IMMEDIATELY IF YOU ARE HAVING LESS URINE OUTPUT, NAUSEA/VOMITING, DIARRHEA. FOLLOW UP WITH YOUR PRIMARY CARE PHYSICIAN IN 1 WEEK. THE CLINIC WILL BE CALLING YOU FOR THE APPOINTMENT. FOLLOW UP WITH THE HEART AND KIDNEY SPECIALISTS OUTLINED ABOVE. Call your Primary Care doctor if any of the following symptoms or problems start or get worse: Shortness of breath or difficulty breathing Wake up at night short of breath Chest pain Cough Swelling of your hands, feet, or legs More fatigued or tired with your normal activity Palpitations - sudden fast heart beats WEIGHT Weigh yourself every morning after using the bathroom. Use the same scale. Wear the same amount of clothing. Write your weight down on a chart. Call your Primary Care doctor if you gain more than 2-3 pounds in 1-2 days. MEDICATIONS Use this discharge instruction sheet for medication instructions. Take your medications at the time your doctor ordered. Do not skip a dose of your medicines. If you miss a dose of medicine, take it as soon as possible, but DO NOT DOUBLE A DOSE. Read your medicine information when you get home. Know all of the side effects of your medicine. If in doubt, ask your pharmacist Call your Primary Care doctor's office if you have any side effects. Be sure all of your doctors know what medicine and herbs you take (including cold, flu, and herbal medicine). Take the following with you to your follow-up doctor appointments: Weight Chart Medication List List of questions Do not drink excessive alcohol, beer or wine. Who to Call and When: Call 911 or go to the Emergency Room if: If at any time you feel your situation is an emergency You have tightness or pain in your chest that does not go away with rest or Nitroglycerin You are very short of breath even with rest . Pending Studies at Discharge: No Stand-Alone Forms: My [facility] [employer], Smoking Cessation Medications and DC Order Prescriptions: New torsemide 20 mg tablet 20 mg PO UD Qty: 90 RF: 2 Continued aspirin 81 mg Tablet,Delayed Release (Dr/Ec) 81 mg PO QAM RF: 0 pantoprazole [Protonix] 40 mg Tablet,Delayed Release (Dr/Ec) 40 mg PO QAM RF: 0 cholecalciferol (vitamin D3) [Vitamin D3] 2,000 unit Capsule 2,000 unit PO QAM RF: 0 Breo Ellipta 100-25 mcg/dose Blister With Device 1 inh INHALATION QAM RF: 0 gabapentin 100 mg Capsule 100 mg PO TIDM RF: 0 ipratropium-albuterol 0.5 mg-3 mg(2.5 mg base)/3 mL Solution For Nebulization 3 ml INHALATION QID PRN (Reason: Shortness Of Breath Or Wheezing) RF: 0 albuterol sulfate [ProAir HFA] 90 mcg/actuation Hfa Aerosol Inhaler 2 puff INHALATION Q4H PRN (Reason: Shortness Of Breath Or Wheezing) RF: 0 fluticasone propionate [Flonase Allergy Relief] 50 mcg/actuation [place],Suspension 2 spray INTRANASAL DAILY PRN (Reason: Nasal Congestion) RF: 0 insulin lispro [Humalog KwikPen Insulin] 100 unit/mL Insulin Pen See Rx Instructions .ROUTE .COMPLEX RF: 0 Vitron-C 65 mg iron- 125 mg Tablet,Delayed Release (Dr/Ec) 1 tab PO BID RF: 0 Lantus Solostar U-100 Insulin 100 unit/mL (3 mL) insulin pen 25 unit SUBCUT BID RF: 0 warfarin 5 mg tablet 10 mg PO UD RF: 0 atorvastatin 80 mg tablet 80 mg PO DAILY RF: 0 hydralazine 25 mg tablet 75 mg PO TID RF: 0 amlodipine 2.5 mg tablet 2.5 mg PO DAILY RF: 0 atorvastatin 80 mg tablet 80 mg PO DAILY RF: 0 baclofen 10 mg tablet 10 mg PO HS RF: 0 warfarin 5 mg tablet 5 mg PO UD RF: 0 guaifenesin [Mucinex] 600 mg Tablet Extended Release 12hr 600 mg PO Q12 PRN (Reason: Cough) Qty: 10 RF: 0 isosorbide dinitrate 10 mg Tablet 10 mg PO TIDM Qty: 0 RF: 0 metoprolol succinate [Toprol XL] 100 mg Tablet Extended Release 24 Hr 100 mg PO BID Qty: 60 RF: 1 Discontinued torsemide 10 mg tablet 10 mg PO QAM RF: 0 furosemide [Lasix] 20 mg Tablet 0 mg PO UD RF: 0 Discharge Orders: Discharge Order (Routine); Ordered 09/19/20 Ordered By: Jc Fabian/Other Patient Handouts: What to Know When TakingWarfarin, Managing Type 2 Diabetes, A1C Admission Data Admit Date/Time: 09/17/20 07:19 Attending Provider: Jc Marquez Admit Provider: Yovanny Desai Primary Care Provider: Mirlande Melton Other Providers: Yovanny Desai ; Gerald Mittal ; Kathleen Bosch ; Richard Newman Other Interventions: Discharge Summary Assessment (RN) Last Done: 09/19/20 15:48
== END 2020-09-19 16:18 | disposition home or self-care (01) | DRG 291 ==
LOC: ED 03:00 → SUATTDRO 07:19 → 2S 07:19

== ENCOUNTER 2020-12-30 08:51 | Inpatient (IN) ==
[2020-12-30] MEDS ORDERED: NovoLIN-R INSULIN PER UNIT CHARGE IV STA (09:21)
[2020-12-30 09:27] LABS: Basophils # (auto) 0.02 K/uL (0-0.2); Basophils % (auto) 0.3 %; Eosinophils # (auto) 0.12 K/uL (0-0.5); Eosinophils % (auto) 1.5 %; Hematocrit (blood only) 37.8 % (42-52); Hemoglobin 11.6 g/dL (14.0-18.0); Immature Granulocytes # (auto) 0.05 K/uL (0.00-0.02); Immature Granulocytes % (auto) 0.6 %; Lymphocytes # (auto) 0.59 K/uL (1.2-3.4); Lymphocytes % (auto) 7.5 %; Mean Corpuscular Hemoglobin 26.6 pg (25-34); Mean Corpuscular Hgb Conc 30.7 g/dL (32-36); Mean Corpuscular Volume 86.7 fL (80-100); Mean Platelet Volume 10.3 fL (7.4-10.4); Monocytes # (auto) 0.57 K/uL (0.11-0.59); Monocytes % (auto) 7.3 %; Neutrophils # (auto) 6.48 K/uL (1.4-6.5); Neutrophils % (auto) 82.8 %; Platelet Count 152 K/uL (130-400); RDW Coefficient of Variation 14.9 % (11.5-14.5); RDW Standard Deviation 47.5 fL (36.4-46.3); Red Blood Count 4.36 M/uL (4.7-6.1); White Blood Count 7.83 K/uL (4.8-10.8)
--- NOTE | 2020-12-30 09:34 | XRay Report ---
XR chest 1V portable HISTORY: SEPSIS COMPARISON: Chest 09/17/2020. FINDINGS: There are low lung volumes. The cardiac silhouette remains enlarged. Left-sided pacemaker/d efibrillator again noted. No new focal lung consolidations to suggest pneumonia. No pleural effusions . No pneumothorax. IMPRESSION: Stable cardiomegaly. No focal lung consolidations to suggest pneumonia. ACT 112: Negative or not required by law. Electronically signed by: Tremaine Blackmon M.D. 12/30/2020 9:33 AM
[2020-12-30 09:37] LABS: INR 2.5 (0.9-1.1); Partial Thromboplastin Ratio 1.5; Partial Thromboplastin Time 38.4 Seconds (21.0-31.0); Prothrombin Time 23.5 Seconds (9.0-12.0)
[2020-12-30 09:55] LABS: Albumin Globulin Ratio 0.9 (0.9-2); Albumin Level 3.5 gm/dl (3.4-5.0); BUN Creatinine Ratio 18.1 (10-20); Bilirubin,Total 0.6 mg/dl (0.2-1); Calcium 9.5 mg/dl (8.5-10.1); Creatinine Clr Calc Pharmacy 23.5 ml/min; Est GFR (African American) 18.3 ml/min; Est GFR (Non-African American) 15.8 ml/min; Globulin 3.9 gm/dl (2.5-4.0); Magnesium 2.6 mg/dl (1.8-2.4); Potassium 3.9 mmol/L (3.5-5.1); Total Protein 7.4 gm/dl (6.4-8.2)
[2020-12-30] MEDS ORDERED: PIPERACILLIN/TAZOBACTAM 4.5 GM/120 ML BAG IV ONE (09:55)
[2020-12-30] MEDS ORDERED: PIPERACILL/TAZOBAC CONSULT ACTIVE PRN ×2 (09:55→12:23)
[2020-12-30 10:07] LABS: Beta-Hydroxybutyrate 3.8 mg/dl (0.2-2.81)
--- NOTE | 2020-12-30 10:42 | CT Scan Report ---
HEAD CT NONCONTRAST CT DOSE: 614.27 mGy.cm HISTORY: weakness TECHNIQUE: Multiaxial CT images of the head were performed without the use of intravenous contrast. A utomated exposure control was utilized for this study. A dose lowering technique was utilized adheri ng to the principles of ALARA. Comparison: Head CT 08/07/2020. Findings: The paranasal sinuses and mastoid air cells are clear. The calvarium and skull base are int act. There is no mass, hematoma, midline shift, acute infarct. White matter hypodensity is nonspecifi c but suggestive of microvascular ischemic change. The ventricles and sulci demonstrate mild age-rela rosemary involutional changes. Old small left frontal lobe infarct, unchanged. Impression: No significant change compared to the prior study. No acute intracranial abnormality. ACT 112: Negative or not required by law. Electronically signed by: Tremaine Blackmon M.D. 12/30/2020 10:40 AM
[2020-12-30 12:04] LABS: Allen Test Pos (Pos); Base Excess ABG 2.9 mEq/L (-9-1.8); HCO3 ABG 27 mmol/L (19-24); Oxygen Saturation ABG 98.9 % (90-95); PCO2 ABG 38 mmHg (35-46); PO2 ABG 134 mmHg (80-95); pH ABG 7.46 (7.35-7.45)
[2020-12-30] MEDS ORDERED: FLUTICASONE PROPIONATE NA SPR 16 GM BTL PRN (12:19)
[2020-12-30] MEDS ORDERED: ACETAMINOPHEN 325 MG TAB PO PRN (12:19)
[2020-12-30] MEDS ORDERED: GLUCAGON FOR INJ 1 MG VIAL SQ PRN (12:19)
[2020-12-30] MEDS ORDERED: GLUCOSE 10 TABS/TUBE PO PRN (12:19)
[2020-12-30] MEDS ORDERED: PHARMACY GLYCEMIC MGMT CONSULT PRN (12:19)
[2020-12-30] MEDS ORDERED: ALBUT/IPRATROP 3MG/0.5MG NEB 3 ML VIAL INH PRN (12:19)
[2020-12-30] MEDS ORDERED: BACLOFEN 10 MG TAB PO PRN (12:19)
[2020-12-30] MEDS ORDERED: GLUCOSE 40% GEL 15 GM TUBE PO PRN (12:19)
[2020-12-30] MEDS ORDERED: DEXTROSE 50% 50 ML SYRINGE IV PRN (12:19)
[2020-12-30] MEDS ORDERED: POLYETHYLENE (MIRALAX) 17 GM PACK PO PRN (12:19)
[2020-12-30] MEDS ORDERED: CARBOHYDRATES FOR HYPOGLYCEMIA PO PRN (12:19)
[2020-12-30] MEDS ORDERED: ONDANSETRON INJ 2 MG/ML 2 ML VIAL IV PRN (12:19)
[2020-12-30] MEDS ORDERED: CONSULT PHARMACY STA (12:23)
--- NOTE | 2020-12-30 12:23 | History & Physical Report ---
Date of Service December 30, 2020 Assessment & Plan (1) Stroke-like symptoms: Plan: This is a 65-year-old male who has significant past medical history of insulin- dependent T2 DM, chronic atrial fibrillation anticoagulated on warfarin, nonischemic cardiomyopathy with right greater than left biventricular systolic and diastolic heart failure, chronic left bundle rekha block status post biventricular pacemaker defibrillator implanted on June 2017, severe aortic stenosis, CAD, severe central and obstructive sleep apnea treated with BiPAP, history of CVA while off Coumadin, CKD stage IV, COPD, tobacco abuse with chewing tobacco, HTN, HLD, history of Covid who presents to ED secondary to increased confusion, word finding difficulty and right hand weakness for 1 to 2 days. Pt presents with confusion, word finding difficulty, difficulty with fine motor movements to LUE. Etiology of encephalopathy unknown at this time : ? if infectious, metabolic, possible cva, vs worsening renal disease He does not meet SIRS/SEPSIS criteria on admission admit to PCU Blood cultures obtained, urine negative treat with IV zosyn and dapto 2/2 to wound until infectious etiology ruled out repeat CT in am. to eval for CVA (pt unable to have MRI) consult neuro for their input PT/OT/ST a1c, lipid panel in a.m. neuro checks recent echo obtained 12/04 - documented below obtain carotid doppler per stroke w/u protocol (2) Leg wound, left: Plan: Patient seen in ED on 12/14 secondary to wound to left lower extremity. Previously had been following with [facility] and patient unhappy with results. At time of evaluation ESR and CRP mildly elevated, he was placed on Keflex and doxy for which he completed. He presents today with increasing left leg pain and no improvement to wound. US on 12/14, negative for dvt, INR therapeutic today Consult wound care -likely to need debridement given eschar Obtain MCKENNA ESR 51, CRP 0.97 -similar to previous on 12/14 (3) Hyperglycemia due to diabetes mellitus: Plan: Last A1c 9.0 10/12/2020, obtain A1c in a.m. Poor control at baseline, but possible substantial elevation secondary to und erlying illness Lantus/NovoLog per protocol Consult glycemic pharmacy, appreciate their input (4) CKD (chronic kidney disease) stage 4, GFR 15-29 ml/min: Plan: Baseline creatinine 2.5-2.8 A/C CKD -4 Follows [facility] nephrology Avoid nephrotoxic agents Hold torsemide for now (5) CAD (coronary artery disease): (6) CHF (congestive heart failure): Plan: Last echocardiogram 12/04/2020 EF 30%, severe aortic stenosis, mild MR, LVH, moderate hypokinesis Denies chest pain or shortness of breath Appears euvolemic on exam Now with acute on chronic CKD Daily weights, strict I's and O's Continue ASA, warfarin, hydralazine, Imdur, metoprolol Hold torsemide secondary to PAM Hold statin secondary to daptomycin (7) Chronic atrial fibrillation: Plan: Follows [facility] cardiology Continue metoprolol and warfarin Recently started on digoxin Obtain dig level (8) Presence of combination internal cardiac defibrillator (ICD) and pacemaker: Plan: not MRI compatible (9) ARPIT (obstructive sleep apnea): Plan: bipap at HS with 2L O2 (10) Chronic anemia: Plan: h/h stable at 11.6 and 37.8 no s/sx of bleeding on vitron C likely 2/2 to chronic disease Plan: DVT ppx: continue warfarin Dispo: PCU FULL CODE PCP: Adams Pickett Pt was seen and examined in collaboration with Dr. Chowdary, please see addendum Admission and Anticipated Discharge Date Admission Date: December 30, 2020 History of Present Illness Chief Complaint: Increased confusion, word finding difficulty and right hand weakness x1 to 2 days. Primary Care Provider: Mirlande Pickett MD This is a 65-year-old male who has significant past medical history of insulin- dependent T2 DM, chronic atrial fibrillation anticoagulated on warfarin, nonischemic cardiomyopathy with right greater than left biventricular systolic and diastolic heart failure, chronic left bundle rekha block status post biventricular pacemaker defibrillator implanted on June 2017, severe aortic stenosis, CAD, severe central and obstructive sleep apnea treated with BiPAP, history of CVA while off Coumadin, CKD stage IV, COPD, tobacco abuse with ch carson tobacco, HTN, HLD, history of Covid who presents to ED secondary to increased confusion, word finding difficulty and right hand weakness for 1 to 2 days. His is at bedside. She states over the past 1 to 2 days she has noticed increased confusion, difficulty with word finding and difficulty with right hand. They were out to eat last evening and he was dropping his fork frequently. Also this morning he dropped a milk from his right hand and when he bent over to clean it up he fell. He did not hit his head, lose consciousness or head injury. This morning also after checking his blood sugar he continued to touch his phone with his finger in blood as if it was a glucometer. She does elicit he has a prior recent stroke and does occasionally have difficulty with memory and word finding, but feels this is much more pronounced. Also of significance is a wound to his left medial leg which is been present for several weeks. He is scheduled to follow with [facility] wound clinic in a few weeks. Patient is very frustrated with word finding difficulty and he can tell he is occasionally confused. He also complains of a right hand tremor. His blood sugars have been out of control for the last 2 days in the 4-500 range. Typically he is around 200. He denies any recent fever, chills, sweats, syncope, lightheadedness, chest pain, shortness breath, cough, nausea, vomiting, abdominal pain, change in bowel or urinary habits. He is occasionally constipated secondary to iron. In regards to his heart failure he has been compliant with his torsemide and monitoring his weights. His dry weight is approximately 258 and he has not noticed much of an increase. He denies any lower extremity edema. He does complain of pain to his left leg in regards to wound. He does have history of central sleep apnea and admits to compliance with BiPAP. Allergies Allergy/AdvReac Type Severity Reaction Status Date / Time No Known Allergies Allergy Verified 12/30/20 10:11 Home Medications Medication Instructions Recorded Confirmed Type aspirin 81 mg tablet,delayed 81 mg PO QAM 02/05/18 12/30/20 History release cholecalciferol (vitamin D3) 50 2,000 unit PO QAM 02/05/18 12/30/20 History mcg (2,000 unit) capsule (Vitamin D3) pantoprazole 40 mg tablet,delayed 40 mg PO QAM 02/05/18 12/30/20 History release (Protonix) gabapentin 100 mg capsule 100 mg PO TIDM 05/14/18 12/30/20 History albuterol sulfate 90 mcg/actuation 2 puff INHALATION Q4H PRN 08/01/18 12/30/20 History aerosol inhaler (ProAir HFA) fluticasone propionate 50 2 spray INTRANASAL DAILY PRN 08/01/18 12/30/20 History mcg/actuation nasal spray,suspension (Flonase Allergy Relief) ipratropium 0.5 mg-albuterol 3 mg 3 ml INHALATION QID PRN 08/01/18 12/30/20 History (2.5 mg base)/3 mL nebulization soln insulin lispro 100 unit/mL See Rx Instructions .ROUTE .COMPLEX 06/05/19 12/30/20 History subcutaneous pen (Humalog KwikPen (U-100) Insulin) iron,carbonyl 65 mg-vitamin C 125 1 tab PO BID 06/05/19 12/30/20 History mg tablet,delayed release (Vitron-C) fluticasone furoate 100 1 inh INHALATION QAM 03/02/20 12/30/20 History mcg-vilanterol 25 mcg/dose inhalation powder (Breo Ellipta) insulin glargine 100 unit/mL (3 30 unit SUBCUT BID 04/23/20 12/30/20 History mL) subcutaneous pen (Lantus Solostar U-100 Insulin) warfarin 5 mg tablet 10 mg PO 4XWK 04/23/20 12/30/20 History baclofen 10 mg tablet 10 mg PO HS PRN 08/05/20 12/30/20 History warfarin 5 mg tablet 5 mg PO 3XWK 08/05/20 12/30/20 History guaifenesin 600 mg tablet, 600 mg PO Q12 PRN #10 tab 08/14/20 12/30/20 Rx extended release 12 hr (Mucinex) isosorbide dinitrate 10 mg tablet 10 mg PO TIDM #0 tab 08/14/20 12/30/20 Rx metoprolol succinate 100 mg 100 mg PO BID #60 tab 08/14/20 12/30/20 Rx tablet,extended release 24 hr (Toprol XL) amlodipine 2.5 mg tablet 2.5 mg PO QAM 09/17/20 12/30/20 History atorvastatin 80 mg tablet 80 mg PO QPM 09/17/20 12/30/20 History hydralazine 25 mg tablet 75 mg PO TID 09/17/20 12/30/20 History torsemide 20 mg tablet 20 mg PO UD #90 tab 09/19/20 12/30/20 Rx digoxin 125 mcg (0.125 mg) tablet 125 mcg PO 3XWK 12/14/20 12/30/20 History Past Med/Surg History Medical History Aortic stenosis Severe aortic stenosis vs pseudo aortic stenosis due to low output per cardio note from 12/2019 ECHO Asthma Atrial fibrillation on warfarin CAD (coronary artery disease) "nonobstructive" Chronic anemia Chronic kidney disease Stage 4, under surveillance by Dr. Mcdermott (no dialysis at this time) Chronic systolic (congestive) heart failure COPD (chronic obstructive pulmonary disease) Diabetic neuropathy DM type 2 (diabetes mellitus, type 2) IDDM Dyslipidemia Gall stones GERD (gastroesophageal reflux disease) History of COVID-19 Dx 08/05/20(hospitalized at [place]) > symptoms at time of cough, SOB, generalized weakness, n/v/d, loss of taste/smell > "resolved" History of multiple pulmonary nodules Hypertension LBBB (left bundle branch block) Nonischemic cardiomyopathy S/p BIV AICD in place; follows with Dr. Graves Presence of combination internal cardiac defibrillator (ICD) and pacemaker Implanted 5+ years ago, [employer], last check 07/2020 Pulmonary HTN PVD (peripheral vascular disease) Sleep apnea + nocturnal hypoxia > BIPAP + 2L O2 HS Stroke 11/2019 > residual speech difficulty/short term memory issues Surgical History H/O cardiac catheterization Non nonobstructive CAD on 2017 cardiac cath H/O total adrenalectomy Left (25 years ago) History of colonoscopy History of esophagogastroduodenoscopy (EGD) Family History Sister Diabetes Brother Diabetes Other Hypertension Lung cancer Social History Smoking Status: Never smoker Tobacco Type: Smokeless Tobacco (Dip or Chew) Second Hand Exposure: Yes (parents smoked); Do You Dip or Chew Tobacco: Yes; Hx Alcohol Use: No Hx Substance Use: No Preferred Language: Slovenian Communication Ability: Effective Visual Impairment: Limited Cloth Examiner Required: No Beliefs That Will Affect Care: None marital status: Current Living Situation: Spouse current occupational status: retired 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 Other Information That Helps Us Care for You: No Feels Safe at Home: Yes Safety Concerns: Feels Safe At This Time Assistive Devices: CPAP and Glasses Review of Systems Review of Systems: All systems reviewed & are unremarkable except as noted in HPI & below Physical Exam Physical Exam: Constitutional: WD/WN, obese, male, vitals as above, NAD, sitting up in bed, pleasant, conversing easily Head: Normocephalic, Atraumatic Eyes: PERRL, conjunctivae normal, anicteric sclerae ENMT: external ear and nose normal, oropharynx normal Neck: trachea midline, no thyromegaly normal visual inspection Respiratory: normal respiratory effort, lungs clear to auscultation, no wheeze, rales, rhonchi. Normal insp/exp effort, no accessory muscle use Cardiovascular: nml s1, s2, 2/6 KACIE noted RUSB, no edema, 3 x 4 cm wound to medial aspect of left gastrocnemius, no surrounding erythema, but wound bed with eschar, vessels: no JVD or carotid bruit Chest: normal inspection of chest Abdomen: normal bowel sounds, soft, nontender, no hepatosplenomegaly Musculoskeletal: no cyanosis or clubbing, extremities motor strength 5/5 Skin: no rashes, warm and dry normal turgor Neurologic: PERRL, EOMI, accommodation nl, no face palsy, occasional aphasia, word finding difficulties CN's II-XI intact bilaterally and moves all extremities Psychiatric: A+Ox3 to basics, patient with word finding difficulties, slight aphasia, euthymic affect Lymphatic: no cervical or axillary lymphadenopathy : deferred Results & Data Results & Data ([facility] [place]) Vital Signs (Past 12 Hours) Vital Signs Temp Pulse Pulse Resp BP BP Pulse Ox 12/30/20 10:57 75 18 136/89 95 12/30/20 10:33 69 22 153/81 H 97 12/30/20 08:58 36.9 C 95 H 18 147/89 H 96 Diagnostic Findings Chest X-Ray 12/30/20 09:11 XR chest 1V portable HISTORY: SEPSIS COMPARISON: Chest 09/17/2020. FINDINGS: There are low lung volumes. The cardiac silhouette remains enlarged. Left-sided pacemaker/defibrillator again noted. No new focal lung consolidations to suggest pneumonia. No pleural effusions. No pneumothorax. IMPRESSION: Stable cardiomegaly. No focal lung consolidations to suggest pneumonia. ACT 112: Negative or not required by law. Electronically signed by: Tremaine Blackmon M.D. 12/30/2020 9:[address] 12/30/20 09:[address] DOSE: 614.27 mGy.cm HISTORY: weakness TECHNIQUE: Multiaxial CT images of the head were performed without the use of intravenous contrast. Automated exposure control was utilized for this study. A dose lowering technique was utilized adhering to the principles of ALARA. Comparison: Head CT 08/07/2020. Findings: The paranasal sinuses and mastoid air cells are clear. The calvarium and skull base are intact. There is no mass, hematoma, midline shift, acute infarct. White matter hypodensity is nonspecific but suggestive of microvascular ischemic change. The ventricles and sulci demonstrate mild age-related involutional changes. Old small left frontal lobe infarct, unchanged. Impression: No significant change compared to the prior study. No acute intracranial abnormality. ACT 112: Negative or not required by law. Electronically signed by: Tremaine Blackmon M.D. 12/30/2020 10:40 AM Medications Administered Medication List Discontinued Medications Piperacillin Sod/Tazobactam Sod (Zosyn) 4.5 gm in 120 mls @ 240 mls/hr IV NOW ONE Stop: 12/30/20 10:24 Last Infusion: 12/30/20 10:55 Dose: 0 mls/hr Documented by: [id number] Admin: 12/30/20 10:25 Dose: 240 mls/hr Documented by: [id number] Insulin Human Regular (Novolin-R Insulin Per Unit Charge) 10 units IV NOW STA Stop: 12/30/20 09:22 Last Admin: 12/30/20 09:28 Dose: 10 units Documented by: [id number] Cosigned by: [id number] ECG Rate (beats per minute): 73 Findings: + paced rhythm COVID-19 Results Results COVID-19 Adm Lab Results: RBC 4.36 M/uL (4.7-6.1) L 12/30/20 WBC 7.83 K/uL (4.8-10.8) 12/30/20 Hgb 11.6 g/dL (14.0-18.0) L 12/30/20 Hct 37.8 % (42-52) L 12/30/20 Plt Count 152 K/uL (130-400) 12/30/20 Neutrophils (%) (Auto) 82.8 % 12/30/20 Lymphocytes (%) (Auto) 7.5 % 12/30/20 Monocytes # (Auto) 0.57 K/uL (0.11-0.59) 12/30/20 Eosinophils # (Auto) 0.12 K/uL (0-0.5) 12/30/20 Immature Granulocyte % (Auto) 0.6 % 12/30/20 Neutrophils # (Auto) 6.48 K/uL (1.4-6.5) 12/30/20 Lymphocytes # (Auto) 0.59 K/uL (1.2-3.4) L 12/30/20 Monocytes # (Auto) 0.57 K/uL (0.11-0.59) 12/30/20 Eosinophils # (Auto) 0.12 K/uL (0-0.5) 12/30/20 Basophils # (Auto) 0.02 K/uL (0-0.2) 12/30/20 Immature Granulocyte # (Auto) 0.05 K/uL (0.00-0.02) H 12/30/20 Na 138 mmol/L (136-145) 12/30/20 K 3.9 mmol/L (3.5-5.1) 12/30/20 Cl 103 mmol/L (98-107) 12/30/20 CO2 26 mmol/L (21-32) 12/30/20 Anion Gap 9.0 (3-11) 12/30/20 BUN 68 mg/dl (7-18) H 12/30/20 Creatinine 3.75 mg/dl (0.6-1.4) H 12/30/20 BUN/Creatinine Ratio 18.1 (10-20) 12/30/20 Glucose Level 450 mg/dl (70-99) H* 12/30/20 Ca 9.5 mg/dl (8.5-10.1) 12/30/20 Total Bilirubin 0.6 mg/dl (0.2-1) 12/30/20 AST/SGOT 22 U/L (15-37) 12/30/20 ALT/SGPT 30 U/L (12-78) 12/30/20 Alkaline Phosphatase 114 U/L (45-117) 12/30/20 Total Protein 7.4 gm/dl (6.4-8.2) 12/30/20 Albumin 3.5 gm/dl (3.4-5.0) 12/30/20 Globulin 3.9 gm/dl (2.5-4.0) 12/30/20 Albumin/Globulin Ratio 0.9 (0.9-2) 12/30/20 CRP 0.97 mg/dl (0-0.29) H 12/30/20 PTT 38.4 Seconds (21.0-31.0) H 12/30/20 INR 2.5 (0.9-1.1) H 12/30/20 COVID-19 PCR NEGATIVE (Negative) 12/30/20 ABG pH 7.46 (7.35-7.45) H 12/30/20 ABG pCO2 38 mmHg (35-46) 12/30/20 ABG pO2 134 mmHg (80-95) H 12/30/20 ABG HCO3 27 mmol/L (19-24) H 12/30/20 ABG O2 Saturation 98.9 % (90-95) H 12/30/20 ABG Base Excess 2.9 mEq/L (-9-1.8) H 12/30/20 Chest X-Ray 12/30/20 Code Status & VTE Plan Code Status FULL CODE VTE Prophylaxis Plan VTE Prophylaxis will be ordered: No Supervising Physician Co-Signing Physician Notes I have seen and examined the patient and have discussed the case with the pro vider above. I agree with the assessment and plan as stated. The patient is a 65-year-old man with a history of stroke and uncontrolled diabetes who presents with hyperglycemia. The patient reports a worsening left lower leg wound and intermittent leg weakness causing him to feel like he would collapse several times over the past week. No clear trigger for this but suspect one or a combination of the following issues are contributing to symptoms. Hyperglycemia is contributing to low energy and fatigue. Worsening renal function is also noted on lab work and may be contributing to generalized weakness. Left lower leg wound also may be superinfected and is definitely painful and distracting for him. He is also obese and physically deconditioned. All of these can contribute to worsening his baseline stroke deficits of difficult with memory and word finding that appear to be more pronounced. It is also possible he had a new acute stroke although the other issues seem more plausible at this time. For this reason will hold on repeat head CT in am; also because symptoms have been ongoing for at least one week. Vitals are stable. Physical exam repeat reveals a disheveled patient who is alert and oriented and in no acute distress. Poor personal hygiene noted. He is obese. He has a golf ball size ulcer with eschar in the middle on his left lower calf with posterior circular injuries adjacent to this. There is surrounding erythema, which is not clearly consistent with cellulitis. Leg appears warm and well perfused. No gross focal neurologic deficits are noted, gait was not assessed. 3/6 systolic ejection murmur noted, lungs are clear to auscultation throughout. No conversational dyspnea, normal speech. Overall agree with the plan above including early and aggressive insulin to control hyperglycemia. Appreciate pharmacy help with this. Wound care nurse for assessment of ulcer on leg. Notably patient states he stopped going to the [facility] because he "did not like what they were doing for him." Dapto and Zosyn empirically started-not septic. Head CT reveals no significant change from previous studies and no acute intracranial abnormality. Consult nephrology for worsening renal function. It may take a few days to optimize him and understand which of these issues is contributing to his current symptoms. Change to full admit status. DO Epi (1) CHF (congestive heart failure) Heart failure chronicity: unspecified Heart failure type: unspecified Qualified Code(s): I50.9 - Heart failure, unspecified (2) Leg wound, left Encounter type: subsequent encounter Qualified Code(s): S81.802D - Unspecified open wound, left lower leg, subsequent encounter
[2020-12-30] MEDS ORDERED: PHARMACIST DISCHARGE MED REC CONSULT PRN (12:33)
[2020-12-30] MEDS ORDERED: ALBUTEROL HFA 8 GM INHALER INH PRN (12:36)
[2020-12-30] MEDS ORDERED: INSULIN GLARGINE SOLOSTAR 100 UNITS/ML 3 ML PEN SC SCH (12:45)
[2020-12-30 13:07] LABS: Appearance Urine Clear (Clear); Bacteria Urine Automated Negative (Negative); Bilirubin Urine Negative (Negative); Blood Urine Negative (Negative); Cast Urine Automated 0 /lpf (0-5); Color Urine Yellow; Epithelial Cell Urine Auto 0-5 /lpf (0-5); Glucose Urine UA 2+ (Negative); Ketones Urine Negative (Negative); Leukocyte Esterase Urine Negative (Negative); Nitrite Urine Negative (Negative); Protein Urine 1+ (Negative); RBC Urine Automated 0-4 /hpf (0-4); Specific Gravity Urine 1.011 (1.000-1.030); Urobilinogen Urine Negative (Negative); WBC Urine Automated 0 /hpf (0-5)
[2020-12-30] MEDS: hydrALAZINE HCL 25 MG TAB PO SCH ×2 (13:32→20:31)
--- NOTE | 2020-12-30 14:08 | Pharmacy Report ---
Pharmacy Glycemic Short Note 2 - Date of Service December 30, 2020 - Glycemic Short BSG Results (Last 24 hours): 12/30/20 12/30/20 12/30/20 09:00 10:28 12:03 Glucose 450 H* POC Glucose 331 H* 282 H OUTPATIENT ANTIDIABETIC REGIMEN: * Lantus 30 units SQ BID * Lispro 5 units breakfast, 25 units lunch and dinner, 15 units with carb heavy bedtime snack ASSESSMENT: * 65 yo male with extensive PMH, including CKD stage IV, COPD, CVD, AFib, Type 2 DM, admitted with encephalopathy, stroke like symptoms, on IV antibiotics. * Patient managed on basal bolus insulin at home, hyperglycemic on arrival, anion gap 9, received 10 units IV insulin in ER. * Blood sugar better 450 --> 282mg/dl, will use basal bolus insulin at this time and titrate to goal blood sugar. PLAN FOR INPATIENT GLYCEMIC CONTROL: * Basal insulin * Lantus 30 units SQ BID (20 units for BSG < 110) * Bolus insulin * NovoLog per scale ACHS or Q6hrs while NPO * Goal Range: Low 110 mg/dL - High 140 mg/dL * Correction Factor: 15 mg/dL/unit * Nutritional / Prandial insulin per carb ratio of 1 unit per 3 grams CHO consumed PLAN FOR DISCHARGE: * to be determined
[2020-12-30] MEDS: DAPTOmycin 350 MG in SYRINGE 0 ML IV SCH (14:13)
[2020-12-30] MEDS: INSULIN ASPART 100 UNITS/ML 3 ML PEN SC SCH ×3 (14:18→21:23)
--- NOTE | 2020-12-30 14:35 | Emergency Department Note ---
History of Present Illness General Chief complaint: Hyperglycemia Stated complaint: hyperglycemia Time Seen by Provider: 12/30/20 09:10 Source: patient, family, RN notes reviewed and old records reviewed Mode of arrival: ambulatory Limitations: no limitations History of Present Illness Maximum Pain Intensity: 9 This patient is brought in by EMS after having weakness and elevated blood sugar. He has a very complex medical history. He is currently being treated for wound on his left leg he has diabetes and renal insufficiency among other medical problems. His was concerned that he was having problems with aphasia and word finding this morning. He has had a stroke in the past and does have this occasionally from time to time but it was seems worse today he also seemed a little more confused. There is no focal numbness or weakness besides this. When I saw him in the ER this seems to have resolved. He denies any pain anywhere he has had no chest pain or shortness of breath no known fever or chil ls. Denies headache neck pain or stiffness. Home Medications Medication Instructions Recorded Confirmed Type aspirin 81 mg tablet,delayed 81 mg PO QAM 02/05/18 12/30/20 History release cholecalciferol (vitamin D3) 50 2,000 unit PO QAM 02/05/18 12/30/20 History mcg (2,000 unit) capsule (Vitamin D3) pantoprazole 40 mg tablet,delayed 40 mg PO QAM 02/05/18 12/30/20 History release (Protonix) gabapentin 100 mg capsule 100 mg PO TIDM 05/14/18 12/30/20 History albuterol sulfate 90 mcg/actuation 2 puff INHALATION Q4H PRN 08/01/18 12/30/20 History aerosol inhaler (ProAir HFA) fluticasone propionate 50 2 spray INTRANASAL DAILY PRN 08/01/18 12/30/20 History mcg/actuation nasal spray,suspension (Flonase Allergy Relief) ipratropium 0.5 mg-albuterol 3 mg 3 ml INHALATION QID PRN 08/01/18 12/30/20 History (2.5 mg base)/3 mL nebulization soln insulin lispro 100 unit/mL See Rx Instructions .ROUTE .COMPLEX 06/05/19 12/30/20 History subcutaneous pen (Humalog KwikPen (U-100) Insulin) iron,carbonyl 65 mg-vitamin C 125 1 tab PO BID 06/05/19 12/30/20 History mg tablet,delayed release (Vitron-C) fluticasone furoate 100 1 inh INHALATION QAM 03/02/20 12/30/20 History mcg-vilanterol 25 mcg/dose inhalation powder (Breo Ellipta) insulin glargine 100 unit/mL (3 30 unit SUBCUT BID 04/23/20 12/30/20 History mL) subcutaneous pen (Lantus Solostar U-100 Insulin) warfarin 5 mg tablet 10 mg PO 4XWK 04/23/20 12/30/20 History baclofen 10 mg tablet 10 mg PO HS PRN 08/05/20 12/30/20 History warfarin 5 mg tablet 5 mg PO 3XWK 08/05/20 12/30/20 History guaifenesin 600 mg tablet, 600 mg PO Q12 PRN #10 tab 08/14/20 12/30/20 Rx extended release 12 hr (Mucinex) isosorbide dinitrate 10 mg tablet 10 mg PO TIDM #0 tab 08/14/20 12/30/20 Rx metoprolol succinate 100 mg 100 mg PO BID #60 tab 08/14/20 12/30/20 Rx tablet,extended release 24 hr (Toprol XL) amlodipine 2.5 mg tablet 2.5 mg PO QAM 09/17/20 12/30/20 History atorvastatin 80 mg tablet 80 mg PO QPM 09/17/20 12/30/20 History hydralazine 25 mg tablet 75 mg PO TID 09/17/20 12/30/20 History torsemide 20 mg tablet 20 mg PO UD #90 tab 09/19/20 12/30/20 Rx digoxin 125 mcg (0.125 mg) tablet 125 mcg PO 3XWK 12/14/20 12/30/20 History Allergies Allergy/AdvReac Type Severity Reaction Status Date / Time No Known Allergies Allergy Verified 12/30/20 10:11 Past Med/Surg History Medical History Aortic stenosis Severe aortic stenosis vs pseudo aortic stenosis due to low output per cardio note from 12/2019 ECHO Asthma Atrial fibrillation on warfarin CAD (coronary artery disease) "nonobstructive" Chronic anemia Chronic kidney disease Stage 4, under surveillance by Dr. Mcdermott (no dialysis at this time) Chronic systolic (congestive) heart failure COPD (chronic obstructive pulmonary disease) Diabetic neuropathy DM type 2 (diabetes mellitus, type 2) IDDM Dyslipidemia Gall stones GERD (gastroesophageal reflux disease) History of COVID-19 Dx 08/05/20(hospitalized at [facility]) > symptoms at time of cough, SOB, generalized weakness, n/v/d, loss of taste/smell > "resolved" History of multiple pulmonary nodules Hypertension LBBB (left bundle branch block) Nonischemic cardiomyopathy S/p BIV AICD in place; follows with Dr. Graves Presence of combination internal cardiac defibrillator (ICD) and pacemaker Implanted 5+ years ago, [employer], last check 07/2020 Pulmonary HTN PVD (peripheral vascular disease) Sleep apnea + nocturnal hypoxia > BIPAP + 2L O2 HS Stroke 11/2019 > residual speech difficulty/short term memory issues Surgical History H/O cardiac catheterization Non nonobstructive CAD on 2016 cardiac cath H/O total adrenalectomy Left (25 years ago) History of colonoscopy History of esophagogastroduodenoscopy (EGD) Family History Sister Diabetes Brother Diabetes Other Hypertension Lung cancer Social History Smoking Status: Never smoker Tobacco Type: Smokeless Tobacco (Dip or Chew) Second Hand Exposure: Yes (parents smoked); Do You Dip or Chew Tobacco: Yes; Hx Alcohol Use: No Hx Substance Use: No Preferred Language: [place] Citizen Communication Ability: Effective Visual Impairment: Limited Aircraft Magneto Mechanic Required: No Beliefs That Will Affect Care: None marital status: Current Living Situation: Spouse current occupational status: retired 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 Other Information That Helps Us Care for You: No Feels Safe at Home: Yes Safety Concerns: Feels Safe At This Time Assistive Devices: CPAP and Glasses Review of Systems A total of 10 systems reviewed and were otherwise negative Physical Exam Vital Signs Vital Signs - 24 hr 12/30/20 08:58 12/30/20 10:33 Temperature 36.9 C Temperature Source Oral Pulse Rate 95 H Pulse Rate [Right Finger] 69 Respiratory Rate 18 22 Respiratory Effort / Characteristics Non-Labored Spontaneous Respiratory Depth Normal Blood Pressure 147/89 H Blood Pressure [Right Arm] 153/81 H Blood Pressure Mean 108 Blood Pressure Mean [Right Arm] 105 Blood Pressure Position [Right Arm] Lying Pulse Oximetry 96 97 Oxygen Delivery Method Room Air Room Air Sepsis Recent Fever Within 48 Hours No Sepsis New/Unexplained Change in Mental Status No Sepsis Action Taken by Nursing No Action Required General: Well developed well nourished middle-aged male who appears in no acute distress, breathing comfortably on room air. Normal speech. He answers most questions appropriately but very vaguely. No slurred speech. Able to name objects without difficulties. No facial asymmetry or droop HEENT: Normal cephalic atraumatic. Pupils are equal round and reactive to light. Extraocular movements are intact. Oropharynx is pink with moist mucous membranes. No swelling of the mouth lips or tongue. Neck: Supple with a midline trachea. No meningeal signs or stiffness, no JVD or bruits. No Stridor. Chest: Clear to auscultation bilaterally. No wheezes or rhonchi. No increased work of breathing. Heart: Regular rate and rhythm without murmurs or gallops. Abdomen: Soft nontender, nondistended without rebound guarding or rigidity. Extremities: No cyanosis clubbing or edema. No calf tenderness or assymetry. There is a moderate size black scabbed area in the left bailey. Spine/Back. Non tender to palpation. No CVA tenderness Skin: Good turgor without rashes. Neurologic exam: Cranial nerves two through 12 are intact. Motor and sensation are intact and symmetrical throughout. Course Administered Medications Hydralazine HCl (Hydralazine Hcl 25 Mg Tab) 75 mg PO TID [facility] Stop: 01/29/21 13:59 Last Admin: 12/30/20 13:32 Dose: 75 mg Documented by: [id number] Daptomycin 350 mg/ Syringe 7 mls @ 3.5 mls/min IV Q48H [facility]; Protocol Stop: 01/06/21 12:59 Last Admin: 12/30/20 14:13 Dose: 3.5 mls/min Documented by: [id number] Insulin Aspart (Insulin Aspart 100 Units/Ml 3 Ml Pen) 0 units SC ACHS [facility] Stop: 01/29/21 12:59 Last Admin: 12/30/20 14:18 Dose: 22 units Documented by: [id number] Cosigned by: [id number] Insulin Glargine (Insulin Glargine Solostar 100 Units/Ml 3 Ml Pen) 0 units SC BID [facility]; Protocol Stop: 01/29/21 12:44 Last Admin: 12/30/20 13:31 Dose: 30 units Documented by: [id number] Cosigned by: [id number] Discontinued Medications Piperacillin Sod/Tazobactam Sod (Zosyn) 4.5 gm in 120 mls @ 240 mls/hr IV NOW ONE Stop: 12/30/20 10:24 Last Infusion: 12/30/20 10:55 Dose: 0 mls/hr Documented by: [id number] Admin: 12/30/20 10:25 Dose: 240 mls/hr Documented by: [id number] Insulin Human Regular (Novolin-R Insulin Per Unit Charge) 10 units IV NOW STA Stop: 12/30/20 09:22 Last Admin: 12/30/20 09:28 Dose: 10 units Documented by: [id number] Cosigned by: [id number] Medical Decision Making Differential Diagnosis Sepsis, diabetic complication, electrolyte or metabolic abnormality, stroke, intracranial hemorrhage Medical Records Attestation: I reviewed the patient's medical records. Home Medications Current Medication List: was personally reviewed by me Laboratory Data Result diagrams: 12/30/20 09:00 12/30/20 09:00 Lab Results 12/30/20 12/30/20 12/30/20 Range/Units 09:00 09:00 09:00 WBC 7.83 (4.8-10.8) K/uL RBC 4.36 L (4.7-6.1) M/uL Hgb 11.6 L (14.0-18.0) g/dL Hct 37.8 L (42-52) % MCV 86.7 (80-100) fL MCH 26.6 (25-34) pg MCHC 30.7 L (32-36) g/dL RDW Std Deviation 47.5 H (36.4-46.3) fL RDW Coeff of Joey 14.9 H (11.5-14.5) % Plt Count 152 (130-400) K/uL MPV 10.3 (7.4-10.4) fL Immature Gran % (Auto) 0.6 % Neut % (Auto) 82.8 % Lymph % (Auto) 7.5 % Irwin % (Auto) 7.3 % Eos % (Auto) 1.5 % Baso % (Auto) 0.3 % Neut # (Auto) 6.48 (1.4-6.5) K/uL Lymph # (Auto) 0.59 L (1.2-3.4) K/uL Irwin # (Auto) 0.57 (0.11-0.59) K/uL Eos # (Auto) 0.12 (0-0.5) K/uL Baso # (Auto) 0.02 (0-0.2) K/uL Immature Gran # (Auto) 0.05 H (0.00-0.02) K/uL PT 23.5 H (9.0-12.0) Seconds INR 2.5 H (0.9-1.1) APTT 38.4 H (21.0-31.0) Seconds PTT Ratio 1.5 Sodium 138 (136-145) mmol/L Potassium 3.9 (3.5-5.1) mmol/L Chloride 103 (98-107) mmol/L Carbon Dioxide 26 (21-32) mmol/L Anion Gap 9.0 (3-11) BUN 68 H (7-18) mg/dl Creatinine 3.75 H (0.6-1.4) mg/dl Est Cr Clr Drug Dosing 23.5 ml/min Est GFR ( Amer) 18.3 ml/min Est GFR (Non-Af Amer) 15.8 ml/min BUN/Creatinine Ratio 18.1 (10-20) Glucose 450 H* (70-99) mg/dl POC Glucose (70-99) mg/dl Lactate (0.4-2.0) mmol/L Calcium 9.5 (8.5-10.1) mg/dl Magnesium 2.6 H (1.8-2.4) mg/dl Total Bilirubin 0.6 (0.2-1) mg/dl AST 22 (15-37) U/L ALT 30 (12-78) U/L Alkaline Phosphatase 114 (45-117) U/L C-Reactive Protein (0-0.29) mg/dl Total Protein 7.4 (6.4-8.2) gm/dl Albumin 3.5 (3.4-5.0) gm/dl Globulin 3.9 (2.5-4.0) gm/dl Albumin/Globulin Ratio 0.9 (0.9-2) Beta-Hydroxybutyric Acd 3.80 H (0.2-2.81) mg/dl COVID-19 Eval Order SARS-CoV-2 (PCR) (Negative) 12/30/20 12/30/20 12/30/20 Range/Units 09:00 09:05 09:05 WBC (4.8-10.8) K/uL RBC (4.7-6.1) M/uL Hgb (14.0-18.0) g/dL Hct (42-52) % MCV (80-100) fL MCH (25-34) pg MCHC (32-36) g/dL RDW Std Deviation (36.4-46.3) fL RDW Coeff of Joey (11.5-14.5) % Plt Count (130-400) K/uL MPV (7.4-10.4) fL Immature Gran % (Auto) % Neut % (Auto) % Lymph % (Auto) % Irwin % (Auto) % Eos % (Auto) % Baso % (Auto) % Neut # (Auto) (1.4-6.5) K/uL Lymph # (Auto) (1.2-3.4) K/uL Irwin # (Auto) (0.11-0.59) K/uL Eos # (Auto) (0-0.5) K/uL Baso # (Auto) (0-0.2) K/uL Immature Gran # (Auto) (0.00-0.02) K/uL PT (9.0-12.0) Seconds INR (0.9-1.1) APTT (21.0-31.0) Seconds PTT Ratio Sodium (136-145) mmol/L Potassium (3.5-5.1) mmol/L Chloride (98-107) mmol/L Carbon Dioxide (21-32) mmol/L Anion Gap (3-11) BUN (7-18) mg/dl Creatinine (0.6-1.4) mg/dl Est Cr Clr Drug Dosing ml/min Est GFR ( Amer) ml/min Est GFR (Non-Af Amer) ml/min BUN/Creatinine Ratio (10-20) Glucose (70-99) mg/dl POC Glucose (70-99) mg/dl Lactate (0.4-2.0) mmol/L Calcium (8.5-10.1) mg/dl Magnesium (1.8-2.4) mg/dl Total Bilirubin (0.2-1) mg/dl AST (15-37) U/L ALT (12-78) U/L Alkaline Phosphatase (45-117) U/L C-Reactive Protein 0.97 H (0-0.29) mg/dl Total Protein (6.4-8.2) gm/dl Albumin (3.4-5.0) gm/dl Globulin (2.5-4.0) gm/dl Albumin/Globulin Ratio (0.9-2) Beta-Hydroxybutyric Acd (0.2-2.81) mg/dl COVID-19 Eval Order Covid19 at [facility] SARS-CoV-2 (PCR) NEGATIVE (Negative) 12/30/20 12/30/20 Range/Units 09:40 10:28 WBC (4.8-10.8) K/uL RBC (4.7-6.1) M/uL Hgb (14.0-18.0) g/dL Hct (42-52) % MCV (80-100) fL MCH (25-34) pg MCHC (32-36) g/dL RDW Std Deviation (36.4-46.3) fL RDW Coeff of Joey (11.5-14.5) % Plt Count (130-400) K/uL MPV (7.4-10.4) fL Immature Gran % (Auto) % Neut % (Auto) % Lymph % (Auto) % Irwin % (Auto) % Eos % (Auto) % Baso % (Auto) % Neut # (Auto) (1.4-6.5) K/uL Lymph # (Auto) (1.2-3.4) K/uL Irwin # (Auto) (0.11-0.59) K/uL Eos # (Auto) (0-0.5) K/uL Baso # (Auto) (0-0.2) K/uL Immature Gran # (Auto) (0.00-0.02) K/uL PT (9.0-12.0) Seconds INR (0.9-1.1) APTT (21.0-31.0) Seconds PTT Ratio Sodium (136-145) mmol/L Potassium (3.5-5.1) mmol/L Chloride (98-107) mmol/L Carbon Dioxide (21-32) mmol/L Anion Gap (3-11) BUN (7-18) mg/dl Creatinine (0.6-1.4) mg/dl Est Cr Clr Drug Dosing ml/min Est GFR ( Amer) ml/min Est GFR (Non-Af Amer) ml/min BUN/Creatinine Ratio (10-20) Glucose (70-99) mg/dl POC Glucose 331 H* (70-99) mg/dl Lactate 1.8 (0.4-2.0) mmol/L Calcium (8.5-10.1) mg/dl Magnesium (1.8-2.4) mg/dl Total Bilirubin (0.2-1) mg/dl AST (15-37) U/L ALT (12-78) U/L Alkaline Phosphatase (45-117) U/L C-Reactive Protein (0-0.29) mg/dl Total Protein (6.4-8.2) gm/dl Albumin (3.4-5.0) gm/dl Globulin (2.5-4.0) gm/dl Albumin/Globulin Ratio (0.9-2) Beta-Hydroxybutyric Acd (0.2-2.81) mg/dl COVID-19 Eval Order SARS-CoV-2 (PCR) (Negative) Imaging Data Attestation: I personally reviewed and interpreted this imaging study as follows: My Impression: This x-rayno acute infiltrate, failure, pneumothorax seen Radiologist's Impression: Chest X-Ray 12/30/20 09:11 XR chest 1V portable HISTORY: SEPSIS COMPARISON: Chest 09/17/2020. FINDINGS: There are low lung volumes. The cardiac silhouette remains enlarged. Left-sided pacemaker/defibrillator again noted. No new focal lung consolidations to suggest pneumonia. No pleural effusions. No pneumothorax. IMPRESSION: Stable cardiomegaly. No focal lung consolidations to suggest pneumonia. ACT 112: Negative or not required by law. Electronically signed by: Tremaine Blackmon M.D. 12/30/2020 9:[address] 12/30/20 09:[address] DOSE: 614.27 mGy.cm HISTORY: weakness TECHNIQUE: Multiaxial CT images of the head were performed without the use of intravenous contrast. Automated exposure control was utilized for this study. A dose lowering technique was utilized adhering to the principles of ALARA. Comparison: Head CT 08/07/2020. Findings: The paranasal sinuses and mastoid air cells are clear. The calvarium and skull base are intact. There is no mass, hematoma, midline shift, acute infarct. White matter hypodensity is nonspecific but suggestive of microvascular ischemic change. The ventricles and sulci demonstrate mild age-related involutional changes. Old small left frontal lobe infarct, unchanged. Impression: No significant change compared to the prior study. No acute intracranial abnormality. ACT 112: Negative or not required by law. Electronically signed by: Tremaine Blackmon M.D. 12/30/2020 10:40 AM ECG Data Attestation: I personally reviewed and interpreted this ECG as follows: Indication: + weakness Rate (beats per minute): 73 Rhythm: + other (Ventricular paced rhythm) ECG Intervals/blocks: + IVCD ECG [place]: + Right axis deviation ECG ST segments: + Nonspecific ST abnormalities ECG Findings: no PACs or no PVCs Comparison ECG Date: from (09/17/20) Change: the following changes noted (Paced rhythm has replaced A. fib) MDM Narrative This patient comes in as described above. The nurse came and got me to see the patient as they were concerned about the patient. He is a diabetic his blood sugar was in the high 400s he seemed more confused he also has history of strokes and may have had some aphasia this morning. When I went in the room, he appears in no distress and does have stable vital signs. He is naming objects appropriately and has no neurologic deficits at present he does answer most questions appropriately but vaguely. Apparently he did have some aphasia this morning. Extensive work-up was done including a CAT scan of his head multiple blood testing EKG and labs. His blood sugar was elevated however he is not acidotic. He was given IV hydration as well as well. There is nothing to suggest acute coronary event. Given his symptoms I was concerned also about infection particular with his leg and he was given IV Zosyn. I do think he needs to be admitted/observe for possible infection, hyperglycemia, confusion and further evaluation. [facility] Continuous cardiac monitoring: Orders placed in the EMR for continuous cardiac monitoring. Upon my interpretation the patient was noted to be in a paced rhythm with a rate of 70 Impression & Plan Sepsis, Acute hyperglycemia, Aphasia, Acute confusion, Leg wound, left Discharge Plan Visit Data Chief Complaint: Hyperglycemia Stated Complaint: hyperglycemia ED Provider: Augustin Diaz Discharge Problem: Sepsis, Acute hyperglycemia, Aphasia, Acute confusion, Leg wound, left Patient Disposition: Admitted As Inpatient Discharge Instructions Interventions: ED Discharge Assessment Last Done: 12/30/20 11:47 Discharge Problem: Sepsis Qualifiers: Sepsis type: sepsis due to unspecified organism Sepsis acute organ dysfunction status: unspecified Qualified Code(s): A41.9 - Sepsis, unspecified organism Leg wound, left Qualifiers: Encounter type: initial encounter Qualified Code(s): S81.802A - Unspecified open wound, left lower leg, initial encounter
[2020-12-30] MEDS: PIPERACILLIN/TAZOBACTAM 4.5 GM in DEXTROSE 5% 100 ML IV SCH ×2 (15:35→23:55)
--- NOTE | 2020-12-30 16:22 | Ultrasound Report ---
US ankle/brachial index comp CLINICAL HISTORY: L leg wound COMPARISON STUDY: None. FINDINGS: The right ankle-brachial index measured with the dorsalis pedis artery was 0.68 and the pos terior tibial artery was 0.62. The left ankle-brachial index measured with the dorsalis pedis artery was 0.77 in the posterior tibial artery was 1.19. IMPRESSION: 1. Abnormally low right ankle-brachial index measure between 0.62 and 0.68. 2. Likely abnormally low left ankle-brachial index measured with the dorsalis pedis artery and 0.77. A normal-appearing left ankle-brachial index measured with the posterior tibial artery is likely due to the calcified vessel. ACT 112: Negative or not required by law. Electronically signed by: Tremaine Blackmon M.D. 12/30/2020 4:20 PM
--- NOTE | 2020-12-30 16:25 | Ultrasound Report ---
BILATERAL CAROTID DOPPLER STUDY HISTORY: Weakness. Stroke symptoms. COMPARISON: None. TECHNIQUE: Real-time, grayscale, and color Doppler sonography of the carotid arteries was performed. Imaging reviewed in the transverse and longitudinal planes. All measurements were calculated based on NASCET criteria. FINDINGS: Antegrade flow is seen in the bilateral vertebral arteries. The brachial pressures are hemodynamically similar. Mild calcified plaque within the bilateral carotid bifurcations. The peak systolic velocity within the right ICA is 54 cm/s. The right systolic ratio is 1.5. The peak systolic velocity within the left ICA is 60 cm/s. The left systolic ratio is 1.3. IMPRESSION: No hemodynamically significant stenosis seen within the carotid arteries. ACT 112: Negative or not required by law. Electronically signed by: Tremaine Blackmon M.D. 12/30/2020 4:24 PM
[2020-12-30] MEDS: WARFARIN SOD 10 MG TAB PO SCH (16:45)
[2020-12-30] MEDS: GABAPENTIN 100 MG CAP PO SCH (17:28)
[2020-12-30] MEDS: ISOSORBIDE DINITRATE 10 MG TAB PO SCH (17:28)
[2020-12-30] MEDS: HYDROCODONE/ACETAMOPHEN 5/325MG TAB PO PRN (18:23)
[2020-12-30] MEDS ORDERED: INSULIN GLARGINE SOLOSTAR 100 UNITS/ML 3 ML PEN SC ONE (19:45)
[2020-12-30] MEDS ORDERED: NovoLIN-R BOLUS FROM BAG IV STA (19:50)
[2020-12-30] MEDS ORDERED: INSULIN REGULAR 250 UNITS in SODIUM CHLORIDE 0.9% 247.5 ML IV SCH (20:00)
[2020-12-30] MEDS: ASCORBIC ACID 500 MG TAB PO SCH (20:28)
[2020-12-30] MEDS: METOPROLOL SUCC 50MG EXT REL TAB PO SCH (20:32)
[2020-12-30] MEDS: FERROUS SULFATE 325 MG TAB PO SCH (20:32)
[2020-12-31 01:00] LABS: BUN Creatinine Ratio 17.1 (10-20); Calcium 9.3 mg/dl (8.5-10.1); Creatinine Clr Calc Pharmacy 24.1 ml/min; Est GFR (African American) 19.1 ml/min; Est GFR (Non-African American) 16.5 ml/min; Potassium 3.9 mmol/L (3.5-5.1)
[2020-12-31] MEDS: HYDROCODONE/ACETAMOPHEN 5/325MG TAB PO PRN ×2 (03:36→22:32)
[2020-12-31 05:26] LABS: Basophils # (auto) 0.03 K/uL (0-0.2); Basophils % (auto) 0.4 %; Eosinophils # (auto) 0.18 K/uL (0-0.5); Eosinophils % (auto) 2.5 %; Hematocrit (blood only) 36.3 % (42-52); Hemoglobin 11.4 g/dL (14.0-18.0); Immature Granulocytes # (auto) 0.03 K/uL (0.00-0.02); Immature Granulocytes % (auto) 0.4 %; Lymphocytes # (auto) 0.95 K/uL (1.2-3.4); Lymphocytes % (auto) 13.3 %; Mean Corpuscular Hemoglobin 26.8 pg (25-34); Mean Corpuscular Hgb Conc 31.4 g/dL (32-36); Mean Corpuscular Volume 85.2 fL (80-100); Mean Platelet Volume 9.2 fL (7.4-10.4); Monocytes # (auto) 0.66 K/uL (0.11-0.59); Monocytes % (auto) 9.2 %; Neutrophils # (auto) 5.29 K/uL (1.4-6.5); Neutrophils % (auto) 74.2 %; Platelet Count 129 K/uL (130-400); RDW Coefficient of Variation 14.9 % (11.5-14.5); RDW Standard Deviation 45.7 fL (36.4-46.3); Red Blood Count 4.26 M/uL (4.7-6.1); White Blood Count 7.14 K/uL (4.8-10.8)
[2020-12-31 05:42] LABS: INR 2.6 (0.9-1.1); Prothrombin Time 24.3 Seconds (9.0-12.0)
[2020-12-31 05:49] LABS: Calcium 9.2 mg/dl (8.5-10.1); Creatinine Clr Calc Pharmacy 23.9 ml/min; Est GFR (Non-African American) 16.4 ml/min
[2020-12-31 07:34] LABS: Estimated Average Glucose 237 mg/dl; Hemoglobin A1C 9.9 % (4.5-5.6)
--- NOTE | 2020-12-31 08:14 | CT Scan Report ---
HEAD CT NONCONTRAST CT DOSE: 614.27 mGy.cm HISTORY: confusion, r hand weakness, eval for stroke TECHNIQUE: Multiaxial CT images of the head were performed without the use of intravenous contrast. A utomated exposure control was utilized for this study. A dose lowering technique was utilized adheri ng to the principles of ALARA. Comparison: Head CT 12/30/2020. Findings: The paranasal sinuses and mastoid air cells are clear. The calvarium and skull base are int act. There is no mass, hematoma, midline shift, acute infarct. White matter hypodensity is nonspecifi c but suggestive of microvascular ischemic change. The ventricles and sulci demonstrate mild age-rela rosemary involutional changes. Old small left frontal lobe infarct, unchanged. Impression: No significant change compared to the prior study. No acute intracranial abnormality. ACT 112: Negative or not required by law. Electronically signed by: Tremaine Blackmon M.D. 12/31/2020 8:12 AM
[2020-12-31] MEDS: PIPERACILLIN/TAZOBACTAM 4.5 GM in DEXTROSE 5% 100 ML IV SCH ×3 (08:27→22:58)
[2020-12-31] MEDS: ISOSORBIDE DINITRATE 10 MG TAB PO SCH ×3 (08:28→16:25)
[2020-12-31] MEDS: INSULIN ASPART 100 UNITS/ML 3 ML PEN SC SCH ×5 (08:29→21:02)
[2020-12-31] MEDS: INSULIN GLARGINE SOLOSTAR 100 UNITS/ML 3 ML PEN SC SCH ×2 (08:30→21:05)
[2020-12-31] MEDS: GABAPENTIN 100 MG CAP PO SCH ×3 (08:30→16:25)
[2020-12-31] MEDS: ASPIRIN 81 MG ECTAB PO SCH (08:31)
[2020-12-31] MEDS: amLODIPine BESYLATE 5 MG TAB PO SCH (08:31)
[2020-12-31] MEDS: PANTOprazole 40 MG TAB PO SCH (08:31)
[2020-12-31] MEDS: CHOLECALCIFEROL 1,000 UNITS 25 MCG TAB PO SCH (08:31)
[2020-12-31] MEDS: FERROUS SULFATE 325 MG TAB PO SCH ×2 (08:32→20:50)
[2020-12-31] MEDS: ASCORBIC ACID 500 MG TAB PO SCH ×2 (08:32→20:50)
[2020-12-31] MEDS: FLUTICASONE/VILANTEROL 100/25MCG 14 PUFFS/INHALER INH SCH (08:32)
[2020-12-31] MEDS: METOPROLOL SUCC 50MG EXT REL TAB PO SCH ×2 (08:33→20:50)
[2020-12-31] MEDS: hydrALAZINE HCL 25 MG TAB PO SCH ×3 (08:47→20:49)
--- NOTE | 2020-12-31 13:08 | Pharmacy Report ---
Pharmacy Glycemic Short Note 2 - Date of Service December 31, 2020 - Glycemic Short BSG Results (Last 24 hours): 12/30/20 12/30/20 12/30/20 16:17 16:20 18:22 Glucose POC Glucose 415 H* 393 H* 379 H* 12/30/20 12/30/20 12/30/20 19:44 20:10 21:14 Glucose POC Glucose 351 H* 339 H* 243 H 12/30/20 12/30/20 12/30/20 22:14 23:15 23:37 Glucose POC Glucose 158 H 125 H 134 H 12/30/20 12/31/20 12/31/20 23:52 00:07 00:23 Glucose POC Glucose 117 H 110 H 111 H 12/31/20 12/31/20 12/31/20 00:25 00:43 01:08 Glucose 117 H POC Glucose 132 H 171 H 12/31/20 12/31/20 12/31/20 03:03 05:13 06:42 Glucose 145 H POC Glucose 156 H 123 H 12/31/20 12/31/20 08:21 11:55 Glucose POC Glucose 162 H 284 H OUTPATIENT ANTIDIABETIC REGIMEN: * Lantus 30 units SQ BID * Lispro 5 units breakfast, 25 units lunch and dinner, 15 units with carb heavy bedtime snack ASSESSMENT: 12/31 * Patient started on insulin infusion last evening, transitioned off around midnight. BSGs this morning 123 mg/dL 162 mg/dL * Lunch BSG was taken after patient had already ate, did cover for carbs but no correction, plan to repeat BSG at 1400 * Will continue 25 units of lantus BID for now, will continue current novolog parameters, tighten if BSG significantly elevated 12/30 * 65 yo male with extensive PMH, including CKD stage IV, COPD, CVD, AFib, Type 2 DM, admitted with encephalopathy, stroke like symptoms, on IV antibiotics. * Patient managed on basal bolus insulin at home, hyperglycemic on arrival, anion gap 9, received 10 units IV insulin in ER. * Blood sugar better 450 --> 282mg/dl, will use basal bolus insulin at this time and titrate to goal blood sugar. PLAN FOR INPATIENT GLYCEMIC CONTROL: * Basal insulin * Lantus 25 units SQ BID * Bolus insulin * NovoLog per scale ACHS or Q6hrs while NPO * Goal Range: Low 110 mg/dL - High 140 mg/dL * Correction Factor: 15 mg/dL/unit * Nutritional / Prandial insulin per carb ratio of 1 unit per 3 grams CHO consumed PLAN FOR DISCHARGE: * to be determined
--- NOTE | 2020-12-31 13:23 | Hospitalist Progress Note ---
Date of Service December 31, 2020 Assessment & Plan (1) Stroke-like symptoms: Plan: This is a 65-year-old male who has significant past medical history of insulin- dependent T2 DM, chronic atrial fibrillation anticoagulated on warfarin, nonischemic cardiomyopathy with right greater than left biventricular systolic and diastolic heart failure, chronic left bundle rekha block status post biventricular pacemaker defibrillator implanted on June 2017, severe aortic stenosis, CAD, severe central and obstructive sleep apnea treated with BiPAP, history of CVA while off Coumadin, CKD stage IV, COPD, tobacco abuse with chewing tobacco, HTN, HLD, history of Covid who presents to ED secondary to increased confusion, word finding difficulty and right hand weakness for 1 to 2 days. Pt presents with confusion, word finding difficulty, difficulty with fine motor movements to LUE. Etiology of encephalopathy unknown at this time : ? if infectious, metabolic, possible cva, vs worsening renal disease He does not meet SIRS/SEPSIS criteria on admission Blood and urine cultures have been negative thus far. We will continue with the Zosyn and daptomycin secondary to left lower extremity wound. CT head this morning is negative for any concerning findings. Admission CT head negative as well. Awaiting neurology input. Work with PT/OT. A1c of 9.9 from 9.6. LDL of 55. Continue neurochecks. recent echo obtained 12/04 - documented below Carotid doppler without any significant stenosis. (2) Leg wound, left: Plan: Patient seen in ED on 12/14 secondary to wound to left lower extremity. Previously had been following with [place] wound [facility] and patient unhappy with results. At time of evaluation ESR and CRP mildly elevated, he was placed on Keflex and doxy for which he completed. He presents today with increasing left leg pain and no improvement to wound. US on 12/14, negative for dvt, INR therapeutic today Wound care has been consulted for possible debridement given eschar Obtain MCKENNA ESR 51, CRP 0.97 -similar to previous on 12/14 We will continue with Zosyn/daptomycin for now. Blood and wound cultures have been negative thus far. WBC is within normal limit and patient remains afebrile. (3) Hyperglycemia due to diabetes mellitus: Plan: Last A1c 9.0 10/12/2020, now 9.9 Poor control at baseline, but possible substantial elevation secondary to underlying illness Lantus/NovoLog per protocol Consult glycemic pharmacy, appreciate their input (4) CKD (chronic kidney disease) stage 4, GFR 15-29 ml/min: Plan: Baseline creatinine 2.5-2.8. Today creatinine at 3.64. A/C CKD -4 Follows [facility] nephrology Avoid nephrotoxic agents Hold torsemide for now Awaiting nephrology input. (5) CAD (coronary artery disease): (6) CHF (congestive heart failure): Plan: Last echocardiogram 12/04/2020 EF 30%, severe aortic stenosis, mild MR, LVH, moderate hypokinesis Denies chest pain or shortness of breath Appears euvolemic on exam Now with acute on chronic CKD Daily weights, strict I's and O's Continue ASA, warfarin, hydralazine, Imdur, metoprolol Hold torsemide secondary to PAM Hold statin secondary to daptomycin (7) Chronic atrial fibrillation: Plan: Follows [facility] cardiology Continue metoprolol and warfarin Recently started on digoxin Obtain dig level (8) Presence of combination internal cardiac defibrillator (ICD) and pacemaker: Plan: not MRI compatible (9) ARPIT (obstructive sleep apnea): Plan: bipap at HS with 2L O2 (10) Chronic anemia: Plan: h/h stable at 11.6 and 37.8 no s/sx of bleeding on vitron C likely 2/2 to chronic disease Plan: DVT ppx: continue warfarin Dispo: PCU FULL CODE PCP: Adams Pickett Admission and Anticipated Discharge Date Admission Date: December 30, 2020 Subjective Patient was awake, alert and oriented this morning. Reports his left lower extremity wound is bothering him and causing him pain. Denies any headache or dizziness. Denies any chest pain, shortness of breath, palpitations, abdominal pain, diarrhea or dysuria. Review of Systems Review of Systems: All systems reviewed & are unremarkable except as noted in HPI & below Physical Exam Physical Exam: General: A&Ox3 HENT: NCAT, MMM, EOMI Eyes: PERRLA Neck: Supple, normal range of motion CVS: normal rate and rhythm Resp: b/l good breath sounds Abdomen: Soft, ND/NT, +BS Extremities: Left lower extremity with 3 x 4 cm wound without any erythema, absence of any discharge Neuro: face symmetric, no gross focal deficit is appreciated, speech is clear Skin: warm and dry, no rashes/lesions/errythema MSK: normal ROM, no joint swelling/erythema (1) Leg wound, left Encounter type: subsequent encounter Qualified Code(s): S81.802D - Unspecified open wound, left lower leg, subsequent encounter (2) CHF (congestive heart failure) Heart failure chronicity: unspecified Heart failure type: unspecified Qualified Code(s): I50.9 - Heart failure, unspecified
--- NOTE | 2020-12-31 15:03 | Electrocardiogram Report ---
Test Reason : Blood Pressure : / mmHG Vent. Rate : 073 BPM Atrial Rate : 000 BPM P-R Int : 000 ms QRS Dur : 200 ms QT Int : 510 ms P-R-T Axes : 000 190 -10 degrees QTc Int : 561 ms Ventricular-paced rhythm Abnormal ECG When compared with ECG of 17-SEP-2020 03:09, Ventricular-paced rhythm now present Confirmed by Javier Sharma ([id number]) on 12/31/2020 3:02:41 PM Referred By: REFERRED SELF Confirmed By:Javier Sharma
[2020-12-31] MEDS: DIGOXIN 0.125 MG TAB PO SCH (16:23)
[2020-12-31] MEDS: WARFARIN SOD 10 MG TAB PO SCH (16:24)
--- NOTE | 2020-12-31 16:53 | Nephrology Consultation ---
Date of Consultation December 31, 2020 Assessment & Plan (1) Acute on chronic renal failure: stage one nonloiguric acute renal failure on CKD 4. source unclear and may simply represent CKD progression. urine findings of glucsuria, proteinuria are not new; no concerns for obstruction at this time. chemistries and volume status for today acceptable. -hold torsemide today; reassess for need daily -daily bmp -cont to avoid nephrotoxins -recommend 1.5L fluid limit and <2 gm daily Na diet -no indication for urgent dialysis History of Present Illness Reason for Consultation: PAM on CKD Requesting Physician: Dr Chowdary Attending Physician: Lise Emerson MD History of Present Illness 65 y/o M whom I'm asked to see for PAM on CKD after he presented to ER yesterday with 24-48 hrs of stroke like symptoms, including word finding difficulties, confusion, and R handed weakness. PMH includes CKD4 baseline creatinine high 2s to 3 and 2 gm daily proteinuria, moderate diffuse CAD with combined systolic/diastolic HF s/p ICD w/ EF 30 11/2020, severe , chronic AF on coumadin, LBBB, severe ARPIT on bipap, pulmonary HTN, stroke while off coumadin, copd, active chew tobacco use, HL, hx of covid infection spring 2020. Also hx of 2011 adrenalectomy for mgt of adolescent onset HTN, extremely labile and symptomatic orthostatic hypotension, PAD. HTN crisis admission w/ stroke like sx Apr 2020; Enterobacter bacteremia admission fall 2019. His weights recently have been around 258 lb; no large fluctuations recently. He takes torsemide MWF 20 mg w/ no recent dose changes; this was held on presentation d/t creatinine 3.8, improved to 3.6 today. His CC to me today is pain at site of his L leg wounds. Denies n/v/d/abd pain, new/worrisome voiding concerns, chest pain, dyspnea or orthopnea, recent falls, uncontrolled edema; current acutely worsening weakness or acute wordfinding challenges. Of note he presented here w/ covid infection this spring complain ing among other things of word finding difficulties and of being in "a mental fog." The patient had unremarkable imaging on presentation; blood cultures were obtained dand he was started on empiric zosyn/dapto; dopplers were obtained to eval LE wounds. His blood sugars have been in 300s; team is working on better control Allergies Allergy/AdvReac Type Severity Reaction Status Date / Time No Known Allergies Allergy Verified 12/30/20 10:11 Home Medications Medication Instructions Recorded Confirmed Type aspirin 81 mg tablet,delayed 81 mg PO QAM 02/05/18 12/30/20 History release cholecalciferol (vitamin D3) 50 2,000 unit PO QAM 02/05/18 12/30/20 History mcg (2,000 unit) capsule (Vitamin D3) pantoprazole 40 mg tablet,delayed 40 mg PO QAM 02/05/18 12/30/20 History release (Protonix) gabapentin 100 mg capsule 100 mg PO TIDM 05/14/18 12/30/20 History albuterol sulfate 90 mcg/actuation 2 puff INHALATION Q4H PRN 08/01/18 12/30/20 History aerosol inhaler (ProAir HFA) fluticasone propionate 50 2 spray INTRANASAL DAILY PRN 08/01/18 12/30/20 History mcg/actuation nasal spray,suspension (Flonase Allergy Relief) ipratropium 0.5 mg-albuterol 3 mg 3 ml INHALATION QID PRN 08/01/18 12/30/20 History (2.5 mg base)/3 mL nebulization soln insulin lispro 100 unit/mL See Rx Instructions .ROUTE .COMPLEX 06/05/19 12/30/20 History subcutaneous pen (Humalog KwikPen (U-100) Insulin) iron,carbonyl 65 mg-vitamin C 125 1 tab PO BID 06/05/19 12/30/20 History mg tablet,delayed release (Vitron-C) fluticasone furoate 100 1 inh INHALATION QAM 03/02/20 12/30/20 History mcg-vilanterol 25 mcg/dose inhalation powder (Breo Ellipta) insulin glargine 100 unit/mL (3 30 unit SUBCUT BID 04/23/20 12/30/20 History mL) subcutaneous pen (Lantus Solostar U-100 Insulin) warfarin 5 mg tablet 10 mg PO 4XWK 04/23/20 12/30/20 History baclofen 10 mg tablet 10 mg PO HS PRN 08/05/20 12/30/20 History warfarin 5 mg tablet 5 mg PO 3XWK 08/05/20 12/30/20 History guaifenesin 600 mg tablet, 600 mg PO Q12 PRN #10 tab 08/14/20 12/30/20 Rx extended release 12 hr (Mucinex) isosorbide dinitrate 10 mg tablet 10 mg PO TIDM #0 tab 08/14/20 12/30/20 Rx metoprolol succinate 100 mg 100 mg PO BID #60 tab 08/14/20 12/30/20 Rx tablet,extended release 24 hr (Toprol XL) amlodipine 2.5 mg tablet 2.5 mg PO QAM 09/17/20 12/30/20 History atorvastatin 80 mg tablet 80 mg PO QPM 09/17/20 12/30/20 History hydralazine 25 mg tablet 75 mg PO TID 09/17/20 12/30/20 History torsemide 20 mg tablet 20 mg PO UD #90 tab 09/19/20 12/30/20 Rx digoxin 125 mcg (0.125 mg) tablet 125 mcg PO 3XWK 12/14/20 12/30/20 History Patient History Medical History Aortic stenosis Severe aortic stenosis vs pseudo aortic stenosis due to low output per cardio note from 12/2019 ECHO Asthma Atrial fibrillation on warfarin CAD (coronary artery disease) "nonobstructive" Chronic anemia Chronic kidney disease Stage 4, under surveillance by Dr. Mcdermott (no dialysis at this time) Chronic systolic (congestive) heart failure COPD (chronic obstructive pulmonary disease) Diabetic neuropathy DM type 2 (diabetes mellitus, type 2) IDDM Dyslipidemia Gall stones GERD (gastroesophageal reflux disease) History of COVID-19 Dx 08/05/20(hospitalized at [place]) > symptoms at time of cough, SOB, generalized weakness, n/v/d, loss of taste/smell > "resolved" History of multiple pulmonary nodules Hypertension LBBB (left bundle branch block) Nonischemic cardiomyopathy S/p BIV AICD in place; follows with Dr. Graves Presence of combination internal cardiac defibrillator (ICD) and pacemaker Implanted 5+ years ago, [employer], last check 07/2020 Pulmonary HTN PVD (peripheral vascular disease) Sleep apnea + nocturnal hypoxia > BIPAP + 2L O2 HS Stroke 11/2019 > residual speech difficulty/short term memory issues Surgical History H/O cardiac catheterization Non nonobstructive CAD on 2017 cardiac cath H/O total adrenalectomy Left (25 years ago) History of colonoscopy History of esophagogastroduodenoscopy (EGD) Family History Sister Diabetes Brother Diabetes Other Hypertension Lung cancer Social History Smoking Status: Never smoker Tobacco Type: Smokeless Tobacco (Dip or Chew) Second Hand Exposure: Yes (parents smoked); Do You Dip or Chew Tobacco: Yes; Hx Alcohol Use: No Hx Substance Use: No Preferred Language: Thai Communication Ability: Effective Visual Impairment: Limited Stripper 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 Apprentice Required: No Beliefs That Will Affect Care: None marital status: Current Living Situation: Spouse current occupational status: retired 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 Other Information That Helps Us Care for You: No Feels Safe at Home: Yes Safety Concerns: Feels Safe At This Time Assistive Devices: BiPap Review of Systems Review of Systems: All systems reviewed & are unremarkable except as noted in HPI & below Physical Exam Constitutional: well developed, well nourished, + obese and cooperative; no acute distress Eyes: EOM intact bilaterally ENMT: Ears: no external ear abnormality Nose: no external nose abnormality Mouth: + dry oral mucous membranes Neck: no nuchal rigidity Respiratory: normal respiratory effort Auscultation: + diminished lung sounds Cardiovascular: Rate/Rhythm: regular rate and regular rhythm Heart Sounds: + murmur Extremities: no edema Gastrointestinal (Abdomen): Inspection/Auscultation: normal bowel sounds Percussion/Palpation: abdomen soft; abdomen nontender Musculoskeletal: Extremities: strength 5/5 throughout Skin: no rashes, warm and dry 5 x 3 cm posteromedial L ulcer and 2 punctate lesions lateral L distal leg Neurologic: mathew, fluent speech, no tremor; no obvoius word finding difficulties or confusion though he did repeat himself ot the nurse a few times Psychiatric: Orientation: alert and oriented x 3 Results & Data ([facility]) Vital Signs (Past 12 Hours) Vital Signs Temp Pulse Resp BP Pulse Ox 12/31/20 14:33 69 13 128/86 100 12/31/20 13:32 79 16 12/31/20 13:15 66 16 99 12/31/20 13:00 70 7 L 100 12/31/20 12:52 67 22 100 12/31/20 11:00 64 14 96 12/31/20 10:00 68 14 95 12/31/20 09:00 66 14 95 12/31/20 08:41 68 18 115/67 99 12/31/20 08:00 37 C Laboratory Results 12/31/20 05:13 12/31/20 05:13 Diagnostic Findings intake studies reviewed; no plm edema
--- NOTE | 2020-12-31 18:45 | Consultation Report ---
DATE OF CONSULTATION: 12/31/2020 REASON FOR CONSULTATION: Dysarthria and increased right arm weakness. HISTORY OF PRESENT ILLNESS: The patient is a 65-year-old presumed right-handed male with a history of insulin-dependent type 2 diabetes, chronic atrial fibrillation on warfarin, nonischemic cardiomyopathy with right greater than left biventricular systolic and diastolic heart failure, chronic left bundle branch block, status post biventricular pacemaker defibrillator, severe aortic stenosis, coronary artery disease, severe central and obstructive sleep apnea treated with BiPAP, history of CVA while off Coumadin, chronic kidney disease, COPD, tobacco abuse remotely, hypertension, hyperlipidemia and COVID, presented to the Emergency Room yesterday for 1-2 day history of increasing confusion, word finding difficulty and right sided weakness. The patient had recently been at our facility for treatment of a wound infection in his left lower extremity. The patient reports that he was in his usual state of health. He was attempting to pour some milk with his right hand and noted that the right hand was more shaky than usual and that he fell into the refrigerator. He may also have had some increased difficulty with speech. He does not know how long this lasted. His son who is an EMT, checked his blood sugar and his blood sugar was 500. His CT of the head noncontrast show an old left frontal infarction. This study was repeated this morning and was unchanged. I had seen this patient in 04/2020 when he presented with nonspecific dizziness, slurred speech and left upper extremity weakness, which resolved in 20 minutes. His INR was therapeutic and he was on antiplatelet therapy with aspirin. His CTA showed mild narrowing of the distal right vert and distal left M1 segment. There was no high-grade stenosis of the carotid or vertebral or basilar arteries. He was also very hypertensive at the time and the differential was transient ischemic attack versus hypertensive urgency. No change was made in aspirin or anticoagulants and good control of diabetes was recommended. The patient recalls that he had a stroke years ago that occurred while he was at a [employer] track. He does not recall which side was affected. He has had a recent infection in his foot. Digoxin was recently new. He has not had any head or neck injury. No new medical or dental procedures. His weight has been stable. He has a positive family history of stroke. DATA BASE: CT of the head as above. Carotid ultrasound, no significant stenosis. Electrocardiogram, ventricular paced rhythm. On admission, his white count was normal. There were an increase in immature granulocytes. His INR was 2.5. Blood gas 7.46, 38, 134 on room air. Electrolytes notable for a BUN of 68, creatinine 3.75, glucose of 450, magnesium 2.6. Normal liver function, CRP 0.97. Urinalysis, +1 protein, 2+ glucose, no bacteria. Digoxin 0.6. COVID negative. PAST MEDICAL HISTORY: As above including asthma, gallstones, pulmonary nodules, pulmonary hypertension. PAST SURGICAL HISTORY: Cardiac catheterization, adrenalectomy, colonoscopy, permanent pacemaker, EGD. FAMILY HISTORY: Stroke in mother. SMOKING. Negative. ALCOHOL: Negative. PHYSICAL EXAMINATION: VITAL SIGNS: On admission blood pressure was 147/89, pulse 95, temperature 36.9. Current vitals pulse ox 94%, respirations 16, pulse 65, BP 132/80. NEUROLOGIC: The patient is awake and alert. He is very pleasant. He has marginal occasional word finding difficulty. His naming, repetitions and 3-step commands are normal. He is alert and oriented x3. He thought [place] was the president. There are no carotid bruits. There is a systolic murmur heard best over the aortic area. Pupils are equal. The right fundus was difficult to visualize as was the left fundus. There is normal pedersen, motility, facial symmetry. There is no dysarthria. Tongue is midline. There is normal facial sensation. Motor: There is full strength, no drift. Normal rapid alternating movements. Symmetric reflexes, downgoing toes. Ckucwo-ub-tdif is mildly tremulous on the right. Anuj-xd-sueb is normal. Vibration is present at the toes and finger. IMPRESSION: 1. This patient has a known old left frontal infarction. In the setting of a wound infection, hyperglycemia with a blood sugar of 500 and worsening renal insufficiency the patient was increasingly confused, more tremulous with his right hand and dropped and item with his right hand. I believe he has gradually improved over the hospitalization and I suspect this is a toxic metabolic etiology of worsening. AT this point I do not recommend additional imaging. His CTA performed in 04/2020 reassuringly showing no high-grade stenosis. The patient cannot have an MRI and I would not subject him to the dye load that a CTA would require. In terms of stroke risk modification, recommend good control of diabetes. Goal LDL of 70 or less. 2. Essential tremor, likely exacerbated by hyperglycemia. We will sign off. Job ID: [id number] MTDD
[2021-01-01] MEDS: INSULIN ASPART 100 UNITS/ML 3 ML PEN SC SCH ×6 (00:59→20:45)
[2021-01-01 05:11] LABS: Basophils # (auto) 0.02 K/uL (0-0.2); Basophils % (auto) 0.3 %; Eosinophils # (auto) 0.12 K/uL (0-0.5); Eosinophils % (auto) 1.9 %; Hematocrit (blood only) 35.1 % (42-52); Immature Granulocytes # (auto) 0.01 K/uL (0.00-0.02); Immature Granulocytes % (auto) 0.2 %; Lymphocytes # (auto) 0.96 K/uL (1.2-3.4); Mean Corpuscular Hemoglobin 27.2 pg (25-34); Mean Corpuscular Hgb Conc 31.3 g/dL (32-36); Mean Corpuscular Volume 86.9 fL (80-100); Mean Platelet Volume 9.8 fL (7.4-10.4); Monocytes # (auto) 0.34 K/uL (0.11-0.59); Monocytes % (auto) 5.3 %; Neutrophils # (auto) 4.96 K/uL (1.4-6.5); Neutrophils % (auto) 77.3 %; Platelet Count 136 K/uL (130-400); RDW Coefficient of Variation 14.9 % (11.5-14.5); RDW Standard Deviation 47.2 fL (36.4-46.3); Red Blood Count 4.04 M/uL (4.7-6.1); White Blood Count 6.41 K/uL (4.8-10.8)
[2021-01-01 05:20] LABS: INR 3.3 (0.9-1.1); Prothrombin Time 30.6 Seconds (9.0-12.0)
[2021-01-01 05:48] LABS: BUN Creatinine Ratio 16.5 (10-20); Creatinine Clr Calc Pharmacy 24.1 ml/min; Est GFR (African American) 19.1 ml/min; Est GFR (Non-African American) 16.5 ml/min
[2021-01-01 07:41] LABS: Potassium 3.7 mmol/L (3.5-5.1)
[2021-01-01] MEDS: HYDROCODONE/ACETAMOPHEN 5/325MG TAB PO PRN (07:55)
[2021-01-01] MEDS: ISOSORBIDE DINITRATE 10 MG TAB PO SCH ×3 (07:57→16:35)
[2021-01-01] MEDS: GABAPENTIN 100 MG CAP PO SCH ×3 (07:57→16:35)
[2021-01-01] MEDS: PIPERACILLIN/TAZOBACTAM 4.5 GM in DEXTROSE 5% 100 ML IV SCH ×3 (08:01→22:37)
[2021-01-01] MEDS: amLODIPine BESYLATE 5 MG TAB PO SCH (08:06)
[2021-01-01] MEDS: FERROUS SULFATE 325 MG TAB PO SCH ×2 (08:07→20:40)
[2021-01-01] MEDS: PANTOprazole 40 MG TAB PO SCH (08:07)
[2021-01-01] MEDS: ASCORBIC ACID 500 MG TAB PO SCH ×2 (08:07→20:39)
[2021-01-01] MEDS: FLUTICASONE/VILANTEROL 100/25MCG 14 PUFFS/INHALER INH SCH (08:08)
[2021-01-01] MEDS: CHOLECALCIFEROL 1,000 UNITS 25 MCG TAB PO SCH (08:08)
[2021-01-01] MEDS: ASPIRIN 81 MG ECTAB PO SCH (08:08)
[2021-01-01] MEDS: METOPROLOL SUCC 50MG EXT REL TAB PO SCH ×2 (08:09→20:41)
[2021-01-01] MEDS: hydrALAZINE HCL 25 MG TAB PO SCH ×3 (08:09→20:41)
[2021-01-01] MEDS ORDERED: INSULIN GLARGINE SOLOSTAR 100 UNITS/ML 3 ML PEN SC SCH ×2 (09:00→21:00)
[2021-01-01] MEDS: DAPTOmycin 350 MG in SYRINGE 0 ML IV SCH (12:09)
--- NOTE | 2021-01-01 12:17 | Hospitalist Progress Note ---
Date of Service January 01, 2021 Assessment & Plan (1) Stroke-like symptoms: Plan: This is a 65-year-old male who has significant past medical history of insulin- dependent T2 DM, chronic atrial fibrillation anticoagulated on warfarin, nonischemic cardiomyopathy with right greater than left biventricular systolic and diastolic heart failure, chronic left bundle rekha block status post biventricular pacemaker defibrillator implanted on June 2017, severe aortic stenosis, CAD, severe central and obstructive sleep apnea treated with BiPAP, history of CVA while off Coumadin, CKD stage IV, COPD, tobacco abuse with chewing tobacco, HTN, HLD, history of Covid who presents to ED secondary to increased confusion, word finding difficulty and right hand weakness for 1 to 2 days. Pt presents with confusion, word finding difficulty, difficulty with fine motor movements to LUE - resolved now Etiology of encephalopathy unknown at this time : ? if infectious, metabolic, possible cva, vs worsening renal disease He does not meet SIRS/SEPSIS criteria on admission Blood and urine cultures have been negative thus far. We will continue with the Zosyn and daptomycin secondary to left lower extremity wound. CT head this morning is negative for any concerning findings. Admission CT head negative as well. Apprcite neurology input; toxic metabolic picture. Signed off. Work with PT/OT. A1c of 9.9 from 9.6. LDL of 55. Recent echo obtained 12/04 - documented below Carotid doppler without any significant stenosis. Found to have low MCKENNA; vascular surgery is consulted. (2) Leg wound, left: Plan: Patient seen in ED on 12/14 secondary to wound to left lower extremity. Previously had been following with [place] wound [facility] and patient unhappy with results. At time of evaluation ESR and CRP mildly elevated, he was placed on Keflex and doxy for which he completed. He presents today with increasing left leg pain and no improvement to wound. US on 12/14, negative for dvt, INR therapeutic today Appreciate wound care in put. ESR 51, CRP 0.97 -similar to previous on 12/14 We will continue with Zosyn/daptomycin for now. Blood and wound cultures have been negative thus far. WBC is within normal limit and patient remains afebrile. (3) Hyperglycemia due to diabetes mellitus: Plan: Last A1c 9.0 10/12/2020, now 9.9 Poor control at baseline, but possible substantial elevation secondary to underlying illness Lantus/NovoLog per protocol Consult glycemic pharmacy, appreciate their input (4) CKD (chronic kidney disease) stage 4, GFR 15-29 ml/min: Plan: Baseline creatinine 2.5-2.8. Today creatinine at 3.62. A/C CKD -4 Appreciate nephrology input. Continue holding torsemide. No indication for urgent dialysis. Avoid nephrotoxic agents Hold torsemide for now (5) CAD (coronary artery disease): (6) CHF (congestive heart failure): Plan: Last echocardiogram 12/04/2020 EF 30%, severe aortic stenosis, mild MR, LVH, moderate hypokinesis Denies chest pain or shortness of breath Appears euvolemic on exam Now with acute on chronic CKD Daily weights, strict I's and O's Continue ASA, warfarin, hydralazine, Imdur, metoprolol Hold torsemide secondary to PAM Hold statin secondary to daptomycin (7) Chronic atrial fibrillation: Plan: Follows [facility] cardiology Continue metoprolol and warfarin Recently started on digoxin (8) Presence of combination internal cardiac defibrillator (ICD) and pacemaker: Plan: not MRI compatible (9) ARPIT (obstructive sleep apnea): Plan: bipap at HS with 2L O2 (10) Chronic anemia: Plan: h/h stable at 11.6 and 37.8 no s/sx of bleeding on vitron C likely 2/2 to chronic disease Plan: DVT ppx: continue warfarin Dispo: PCU FULL CODE PCP: Adams Pickett Admission and Anticipated Discharge Date Admission Date: December 30, 2020 Subjective Patient is doing okay this morning. No new complaints. Awake, alert and oriented. Denies any new focal deficit. Speech is clear. Denies any headache, vision blurriness, neck pain, chest pain, shortness of breath or any palpitations. Rest of the review of system is negative. Review of Systems Review of Systems: All systems reviewed & are unremarkable except as noted in HPI & below Physical Exam Physical Exam: General: A&Ox3 HENT: NCAT, MMM, EOMI Eyes: PERRLA Neck: Supple, normal range of motion CVS: normal rate and rhythm Resp: b/l good breath sounds Abdomen: Soft, ND/NT, +BS Extremities: Left lower extremity with 3 x 4 cm wound without any erythema, absence of any discharge - covered with dressing today Neuro: face symmetric, no gross focal deficit is appreciated, speech is clear Skin: warm and dry, no rashes/lesions/errythema MSK: normal ROM, no joint swelling/erythema (1) Leg wound, left Encounter type: subsequent encounter Qualified Code(s): S81.802D - Unspecified open wound, left lower leg, subsequent encounter (2) CHF (congestive heart failure) Heart failure chronicity: unspecified Heart failure type: unspecified Qualified Code(s): I50.9 - Heart failure, unspecified
--- NOTE | 2021-01-01 12:34 | Pharmacy Report ---
Pharmacy Glycemic Short Note 2 - Date of Service January 01, 2021 - Glycemic Short BSG Results (Last 24 hours): 12/31/20 12/31/20 12/31/20 16:19 16:21 21:00 Glucose POC Glucose 301 H* 316 H* 252 H 01/01/21 01/01/21 01/01/21 00:56 04:18 04:39 Glucose POC Glucose 92 63 L* 85 01/01/21 01/01/21 01/01/21 04:57 07:33 11:24 Glucose 97 POC Glucose 101 H 196 H OUTPATIENT ANTIDIABETIC REGIMEN: * Lantus 30 units SQ BID * Lispro 5 units breakfast, 25 units lunch and dinner, 15 units with carb heavy bedtime snack ASSESSMENT: 01/01 * Patient received 117 units SQ insulin over last 24 hours while tolerating a diet * Fasting BSG 85-101 this AM w/ 50 units basal on board. Of note, pt did develop mild hypoglycemia overnight - likely due to excess basal but HS Novolog dose may have contributed as well. Based upon prior admission data, a reduced basal dose of 25-35 units per day may be required * Post-prandial BSGs elevated yesterday - will adjust carb ratio this afternoon to allow for greater prandial doses 12/31 * Patient started on insulin infusion last evening, transitioned off around midnight. BSGs this morning 123 mg/dL 162 mg/dL * Lunch BSG was taken after patient had already ate, did cover for carbs but no correction, plan to repeat BSG at 1400 * Will continue 25 units of lantus BID for now, will continue current novolog parameters, tighten if BSG significantly elevated 12/30 * 65 yo male with extensive PMH, including CKD stage IV, COPD, CVD, AFib, Type 2 DM, admitted with encephalopathy, stroke like symptoms, on IV antibiotics. * Patient managed on basal bolus insulin at home, hyperglycemic on arrival, anion gap 9, received 10 units IV insulin in ER. * Blood sugar better 450 --> 282mg/dl, will use basal bolus insulin at this time and titrate to goal blood sugar. PLAN FOR INPATIENT GLYCEMIC CONTROL: * Basal insulin - decrease * Lantus 10 units SQ this AM then 15 units BID starting this evening * Bolus insulin - increase prandial, decrease HS doses * NovoLog per scale ACHS or Q6hrs while NPO * Goal Range: Low 110 mg/dL - High 140 mg/dL * Correction Factor: 15 mg/dL/unit prior to meals; 30 mg/dL/unit at HS * Nutritional / Prandial insulin per carb ratio of 1 unit per 2.5 grams CHO consumed with meals, 1 unit per 10 grams CHO consumed HS PLAN FOR DISCHARGE: * see certified breastfeeding educator note
--- NOTE | 2021-01-01 14:41 | Ultrasound Report ---
US arterial duplex LE BI INDICATION: MN ^PAD. Technique: Bilateral lower extremity real-time compression arterial ultrasound with Color Doppler andreina ging. Comparison: Ankle brachial index study 10/04/2018 Findings: Vascular waveforms were normal without evidence of parvus tardus waveform. Waveforms were t riphasic apart from biphasic waveforms in the left peroneal and anterior tibial arteries and in the r ight peroneal, posterior tibial, and anterior tibial arteries. The dorsalis pedis demonstrates monoph asic waveforms bilaterally. Arterial velocities were as follows: Right: Common femoral: 69.5 cm/s Superficial femoral: 73.5 cm/s proximally, 77.9 cm/s in the mid vessel, and 71.3 cm/s distally Deep femoral: 87.0 cm/s Popliteal: 58 cm/s Anterior tibial: 60.7 cm/s Posterior tibial: 87.5 cm/s Peroneal: 47.4 cm/s Distal posterior tibial: 89.7 cm/s Distal anterior tibial: 58.5 cm/s Distal peroneal: 38.9 cm/s Dorsalis pedis: 108.2 cm/s. Left: Common femoral: 98.4 cm/s Superficial femoral: 98.4 cm/s Deep femoral: 62.0 cm/s Popliteal: 82.2 cm/s Anterior tibial: 85.5 cm/s Posterior tibial: 107.6 cm/s Peroneal: 76.5 cm/s Distal posterior tibial: 101.7 cm/s Distal anterior tibial: 75.8 cm/s Distal peroneal: 39.2 cm/s Dorsalis pedis: 186.4 cm/s. Exam is limited by patient body habitus and calf edema. The left peroneal and superficial femoral art eries are difficult to follow distally due to body habitus. Impression: No mariah stenosis. Biphasic and monophasic waveforms distally may reflect atherosclerotic disease. ACT 112: Negative or not required by law. Electronically signed by: Edilberto Stearns M.D. 01/01/2021 2:40 PM
[2021-01-01] MEDS: WARFARIN SOD 5 MG TAB PO SCH (16:35)
--- NOTE | 2021-01-01 18:27 | Nephrology Progress Note ---
Date of Service January 01, 2021 Assessment & Plan (1) Acute on chronic renal failure: Plan: stage one nonoliiguric acute renal failure on CKD 4 w/ stable renal function. source unclear and may simply represent CKD progression. urine findings of glucosuria, proteinuria are not new; no concerns for obstruction at this time. chemistries and volume status for today acceptable. -hold torsemide again today; reassess for need daily -daily bmp -cont to avoid nephrotoxins -cont 1.5L fluid limit and <2 gm daily Na diet -no indication for urgent dialysis Admission and Anticipated Discharge Date Admission Date: December 30, 2020 Subjective no overnight events; ongoing leg pain; denies sob, worse confusion or edema, acute confusion; RN has not observed confusion Review of Systems Review of Systems: All systems reviewed & are unremarkable except as noted in Subjective Physical Exam Constitutional: well developed, well nourished, + obese and cooperative; no acute distress Eyes: EOM intact bilaterally ENMT: Ears: no external ear abnormality Nose: no external nose abnormality Mouth: + dry oral mucous membranes Neck: no nuchal rigidity Respiratory: normal respiratory effort Auscultation: + diminished lung sounds Cardiovascular: Rate/Rhythm: regular rate and regular rhythm Heart Sounds: + murmur Extremities: + edema (trace -1+ LLE > RLE) Gastrointestinal (Abdomen): Inspection/Auscultation: normal bowel sounds Percussion/Palpation: abdomen soft; abdomen nontender Musculoskeletal: Extremities: strength 5/5 throughout Skin: no rashes, warm and dry Neurologic: mathew, fluent speech; some LUE tremor Psychiatric: Orientation: alert and oriented x 3 Results & Data ([facility]) Vital Signs (Past 12 Hours) Vital Signs Pulse Resp BP Pulse Ox 01/01/21 15:20 67 20 01/01/21 15:10 69 21 01/01/21 15:00 68 18 01/01/21 14:50 67 11 L 01/01/21 14:40 69 7 L 01/01/21 14:30 67 16 01/01/21 14:20 68 16 01/01/21 14:10 83 16 01/01/21 14:00 67 12 01/01/21 13:50 69 17 01/01/21 13:47 71 13 01/01/21 12:40 69 4 L 01/01/21 12:30 66 10 L 01/01/21 12:20 68 23 01/01/21 12:10 73 16 01/01/21 12:00 64 16 01/01/21 11:26 69 20 114/74 97 Laboratory Results 01/01/21 04:57 01/01/21 06:49
[2021-01-02] MEDS: HYDROCODONE/ACETAMOPHEN 5/325MG TAB PO PRN ×3 (00:10→21:04)
[2021-01-02 05:36] LABS: Basophils # (auto) 0.01 K/uL (0-0.2); Basophils % (auto) 0.2 %; Eosinophils # (auto) 0.13 K/uL (0-0.5); Eosinophils % (auto) 2.2 %; Hematocrit (blood only) 33.1 % (42-52); Hemoglobin 10.3 g/dL (14.0-18.0); Immature Granulocytes # (auto) 0.01 K/uL (0.00-0.02); Immature Granulocytes % (auto) 0.2 %; Lymphocytes # (auto) 0.92 K/uL (1.2-3.4); Lymphocytes % (auto) 15.6 %; Mean Corpuscular Hemoglobin 26.8 pg (25-34); Mean Corpuscular Hgb Conc 31.1 g/dL (32-36); Mean Corpuscular Volume 86.2 fL (80-100); Mean Platelet Volume 9.8 fL (7.4-10.4); Monocytes # (auto) 0.48 K/uL (0.11-0.59); Monocytes % (auto) 8.1 %; Neutrophils # (auto) 4.35 K/uL (1.4-6.5); Neutrophils % (auto) 73.7 %; Platelet Count 133 K/uL (130-400); RDW Standard Deviation 46.9 fL (36.4-46.3); Red Blood Count 3.84 M/uL (4.7-6.1)
[2021-01-02 05:50] LABS: INR 3.9 (0.9-1.1); Prothrombin Time 35.6 Seconds (9.0-12.0)
[2021-01-02 06:01] LABS: BUN Creatinine Ratio 15.6 (10-20); Calcium 8.6 mg/dl (8.5-10.1); Creatinine Clr Calc Pharmacy 23.4 ml/min; Est GFR (African American) 18.1 ml/min; Est GFR (Non-African American) 15.6 ml/min; Magnesium 2.7 mg/dl (1.8-2.4); Potassium 3.5 mmol/L (3.5-5.1)
[2021-01-02 06:02] LABS: Phosphorus 4.5 mg/dl (2.5-4.9)
[2021-01-02] MEDS: PIPERACILLIN/TAZOBACTAM 4.5 GM in DEXTROSE 5% 100 ML IV SCH ×3 (07:56→23:13)
[2021-01-02] MEDS: GABAPENTIN 100 MG CAP PO SCH ×3 (07:56→16:40)
[2021-01-02] MEDS: INSULIN GLARGINE SOLOSTAR 100 UNITS/ML 3 ML PEN SC SCH ×2 (07:56→20:24)
[2021-01-02] MEDS: ISOSORBIDE DINITRATE 10 MG TAB PO SCH ×3 (07:56→17:16)
[2021-01-02] MEDS: INSULIN ASPART 100 UNITS/ML 3 ML PEN SC SCH ×4 (07:57→21:02)
[2021-01-02] MEDS: ASCORBIC ACID 500 MG TAB PO SCH ×2 (08:57→20:30)
[2021-01-02] MEDS: FERROUS SULFATE 325 MG TAB PO SCH ×2 (08:57→20:29)
[2021-01-02] MEDS: CHOLECALCIFEROL 1,000 UNITS 25 MCG TAB PO SCH (08:59)
[2021-01-02] MEDS: PANTOprazole 40 MG TAB PO SCH (08:59)
[2021-01-02] MEDS: amLODIPine BESYLATE 5 MG TAB PO SCH (08:59)
[2021-01-02] MEDS: ASPIRIN 81 MG ECTAB PO SCH (09:00)
[2021-01-02] MEDS: METOPROLOL SUCC 50MG EXT REL TAB PO SCH ×2 (09:00→20:32)
[2021-01-02] MEDS: hydrALAZINE HCL 25 MG TAB PO SCH ×3 (09:00→20:31)
[2021-01-02] MEDS: FLUTICASONE/VILANTEROL 100/25MCG 14 PUFFS/INHALER INH SCH (09:01)
--- NOTE | 2021-01-02 12:24 | Pharmacy Report ---
Pharmacy Glycemic Short Note 2 - Date of Service January 02, 2021 - Glycemic Short BSG Results (Last 24 hours): 01/01/21 01/01/21 01/02/21 16:24 20:04 05:13 Glucose 65 L POC Glucose 232 H 269 H 01/02/21 01/02/21 07:11 11:12 Glucose POC Glucose 70 172 H OUTPATIENT ANTIDIABETIC REGIMEN: * Lantus 30 units SQ BID * Lispro 5 units breakfast, 25 units lunch and dinner, 15 units with carb heavy bedtime snack ASSESSMENT: 01/02 * 87 units SQ insulin given over last 24 hrs while tolerating a diet * Fasting BSG 65-70 this AM w/ 25 units basal on board, and after receiving 5 units correctional insulin at HS. Will decrease basal insulin and HS Novolog dose. * Post-prandial BSGs elevated 3 of 3 yesterday, however lunchtime BSG at goal this AM with new carb ratio. Will continue the same for now. 01/01 * Patient received 117 units SQ insulin over last 24 hours while tolerating a diet * Fasting BSG 85-101 this AM w/ 50 units basal on board. Of note, pt did develo p mild hypoglycemia overnight - likely due to excess basal but HS Novolog dose may have contributed as well. Based upon prior admission data, a reduced basal dose of 25-35 units per day may be required * Post-prandial BSGs elevated yesterday - will adjust carb ratio this afternoon to allow for greater prandial doses 12/31 * Patient started on insulin infusion last evening, transitioned off around midnight. BSGs this morning 123 mg/dL 162 mg/dL * Lunch BSG was taken after patient had already ate, did cover for carbs but no correction, plan to repeat BSG at 1400 * Will continue 25 units of lantus BID for now, will continue current novolog parameters, tighten if BSG significantly elevated 12/30 * 65 yo male with extensive PMH, including CKD stage IV, COPD, CVD, AFib, Type 2 DM, admitted with encephalopathy, stroke like symptoms, on IV antibiotics. * Patient managed on basal bolus insulin at home, hyperglycemic on arrival, anion gap 9, received 10 units IV insulin in ER. * Blood sugar better 450 --> 282mg/dl, will use basal bolus insulin at this time and titrate to goal blood sugar. PLAN FOR INPATIENT GLYCEMIC CONTROL: * Basal insulin - decrease * Lantus 10 units SQ BID * Bolus insulin - increase prandial, decrease HS doses * NovoLog per scale ACHS or Q6hrs while NPO * Goal Range: Low 110 mg/dL - High 140 mg/dL (140-180 mg/dL at HS) * Correction Factor: 15 mg/dL/unit prior to meals; 30 mg/dL/unit at HS * Nutritional / Prandial insulin per carb ratio of 1 unit per 2.5 grams CHO consumed with meals, 1 unit per 10 grams CHO consumed HS PLAN FOR DISCHARGE: * see music educator note
--- NOTE | 2021-01-02 14:22 | Consultation ---
Date of Consultation January 02, 2021 Assessment & Plan (1) Peripheral arterial disease: Pt with mild/moderate PAD and is asymptomatic. Pt not candidate for endovascular intervention secondary to severe CKD. No indications for vascular surgical intervention at this time. Recommend continue abx per medicine/wound care, and eval of wounds for debridement by Wound Care provider or General Surgery. Pt aware. Please call if needed. History of Present Illness Reason for Consultation: PAD, LLE ulcers Attending Physician: Angel Mane MD History of Present Illness 65 yom with multiple medical problems, including CKD 4, CAD, HTN, DMII, , AICD placement, ARPIT, CHF, CVA, neuropathy, dyslipidemia, GERD, LBBB, a fib, admitted with hyperglycemia and AMS, seen in consultation today for PAD and LLE wounds. Pt states has had L calf/leg wounds for about 4-5 months. Unsure whether he had trauma to the area. States he began seeing wound clinic at [facility], but stopped going bc they wouldn't tell him whether his wounds were improving and pt was frustrated. States he has an appt with [facility] for wound care later this week(possibly tomorrow) as outpt, but does not know whether he will make it d/t being in here. Pt admits pain in L leg wounds. Also states they are itching. Unsure what he has been using at home for dressings, and has been on abx since ED visit last week. Pt denies RECINOS, fever, chest pain, SOB, abd pain, N/V, rest pain, claudication, foot/toe wounds, other complaints. No prior hx of arterial sugery. MCKENNA approx 0.7 BL Arterial US demonstrates diffuse PAD without focal stenosis. Also demonstrates triphasic and biphasic waveforms Allergies Allergy/AdvReac Type Severity Reaction Status Date / Time No Known Allergies Allergy Verified 12/30/20 10:11 Home Medications Medication Instructions Recorded Confirmed Type aspirin 81 mg tablet,delayed 81 mg PO QAM 02/05/18 12/30/20 History release cholecalciferol (vitamin D3) 50 2,000 unit PO QAM 02/05/18 12/30/20 History mcg (2,000 unit) capsule (Vitamin D3) pantoprazole 40 mg tablet,delayed 40 mg PO QAM 02/05/18 12/30/20 History release (Protonix) gabapentin 100 mg capsule 100 mg PO TIDM 05/14/18 12/30/20 History albuterol sulfate 90 mcg/actuation 2 puff INHALATION Q4H PRN 08/01/18 12/30/20 History aerosol inhaler (ProAir HFA) fluticasone propionate 50 2 spray INTRANASAL DAILY PRN 08/01/18 12/30/20 History mcg/actuation nasal spray,suspension (Flonase Allergy Relief) ipratropium 0.5 mg-albuterol 3 mg 3 ml INHALATION QID PRN 08/01/18 12/30/20 History (2.5 mg base)/3 mL nebulization soln insulin lispro 100 unit/mL See Rx Instructions .ROUTE .COMPLEX 06/05/19 12/30/20 History subcutaneous pen (Humalog KwikPen (U-100) Insulin) iron,carbonyl 65 mg-vitamin C 125 1 tab PO BID 06/05/19 12/30/20 History mg tablet,delayed release (Vitron-C) fluticasone furoate 100 1 inh INHALATION QAM 03/02/20 12/30/20 History mcg-vilanterol 25 mcg/dose inhalation powder (Breo Ellipta) insulin glargine 100 unit/mL (3 30 unit SUBCUT BID 04/23/20 12/30/20 History mL) subcutaneous pen (Lantus Solostar U-100 Insulin) warfarin 5 mg tablet 10 mg PO 4XWK 04/23/20 12/30/20 History baclofen 10 mg tablet 10 mg PO HS PRN 08/05/20 12/30/20 History warfarin 5 mg tablet 5 mg PO 3XWK 08/05/20 12/30/20 History guaifenesin 600 mg tablet, 600 mg PO Q12 PRN #10 tab 08/14/20 12/30/20 Rx extended release 12 hr (Mucinex) isosorbide dinitrate 10 mg tablet 10 mg PO TIDM #0 tab 08/14/20 12/30/20 Rx metoprolol succinate 100 mg 100 mg PO BID #60 tab 08/14/20 12/30/20 Rx tablet,extended release 24 hr (Toprol XL) amlodipine 2.5 mg tablet 2.5 mg PO QAM 09/17/20 12/30/20 History atorvastatin 80 mg tablet 80 mg PO QPM 09/17/20 12/30/20 History hydralazine 25 mg tablet 75 mg PO TID 09/17/20 12/30/20 History torsemide 20 mg tablet 20 mg PO UD #90 tab 09/19/20 12/30/20 Rx digoxin 125 mcg (0.125 mg) tablet 125 mcg PO 3XWK 12/14/20 12/30/20 History Patient History Medical History Aortic stenosis Severe aortic stenosis vs pseudo aortic stenosis due to low output per cardio note from 12/2019 ECHO Asthma Atrial fibrillation on warfarin CAD (coronary artery disease) "nonobstructive" Chronic anemia Chronic kidney disease Stage 4, under surveillance by Dr. Mcdermott (no dialysis at this time) Chronic systolic (congestive) heart failure COPD (chronic obstructive pulmonary disease) Diabetic neuropathy DM type 2 (diabetes mellitus, type 2) IDDM Dyslipidemia Gall stones GERD (gastroesophageal reflux disease) History of COVID-19 Dx 08/05/20(hospitalized at [facility]) > symptoms at time of cough, SOB, generalized weakness, n/v/d, loss of taste/smell > "resolved" History of multiple pulmonary nodules Hypertension LBBB (left bundle branch block) Nonischemic cardiomyopathy S/p BIV AICD in place; follows with Dr. Graves Presence of combination internal cardiac defibrillator (ICD) and pacemaker Implanted 5+ years ago, [employer], last check 07/2020 Pulmonary HTN PVD (peripheral vascular disease) Sleep apnea + nocturnal hypoxia > BIPAP + 2L O2 HS Stroke 11/2019 > residual speech difficulty/short term memory issues Surgical History H/O cardiac catheterization Non nonobstructive CAD on 2017 cardiac cath H/O total adrenalectomy Left (25 years ago) History of colonoscopy History of esophagogastroduodenoscopy (EGD) Family History Sister Diabetes Brother Diabetes Other Hypertension Lung cancer Social History Smoking Status: Never smoker Tobacco Type: Smokeless Tobacco (Dip or Chew) Second Hand Exposure: Yes (parents smoked); Do You Dip or Chew Tobacco: Yes; Hx Alcohol Use: No Hx Substance Use: No Preferred Language: Kinyarwanda Communication Ability: Effective Visual Impairment: Limited Package Lift Operator Required: No Beliefs That Will Affect Care: None marital status: Current Living Situation: Spouse current occupational status: retired 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 Other Information That Helps Us Care for You: No Feels Safe at Home: Yes Safety Concerns: Feels Safe At This Time Assistive Devices: Glasses and Oxygen - Continuous Review of Systems Review of Systems: 14 systems reviewed and negative aside from HPI Physical Exam Constitutional: WD/WN, vitals as above cooperative and comfortable; not in distress ENMT: Ears: no hearing impairment Neck: trachea midline Respiratory: normal respiratory effort; no labored breathing Auscultation: lungs clear to auscultation bilaterally and + diminished lung sounds Cardiovascular: Rate/Rhythm: + irregularly irregular Vessels: femoral pulses present, posterior tibial pulses present (nonpalpable) and radial pulses present; + abnormal peripheral pulses and + dorsalis pedis pulses abnormal (nonpalpable BLE) Extremities: normal capillary refill and + edema Gastrointestinal (Abdomen): Inspection/Auscultation: abdomen normal to inspection and + abdomen distended (secondary to body habitus) Percussion/Palpation: abdomen soft; abdomen nontender Musculoskeletal: no cyanosis or clubbing, extremities motor strength 5/5 Skin: no rashes, warm and dry + wound (LLE post/medial ulcers eschar/slough, mild erythema/odor) Neurologic: moves all extremities and awake; no focal motor deficits and not confused Psychiatric: A+Ox3, euthymic affect Results & Data ([facility]) Vital Signs (Past 12 Hours) Vital Signs Temp Pulse Pulse Pulse Resp BP Pulse Ox 01/02/21 12:00 37.0 C 69 68 20 116/75 96 01/02/21 08:00 36.8 C 67 80 20 129/75 96 01/02/21 04:13 36.6 C 61 10 L 128/75 95
--- NOTE | 2021-01-02 15:43 | Hospitalist Progress Note ---
Date of Service January 02, 2021 Assessment & Plan (1) Stroke-like symptoms: Plan: 65 y/o M w/ insulin-dependent T2 DM, chronic atrial fibrillation anticoagulated on warfarin, nonischemic cardiomyopathy with right greater than left biventricular systolic and diastolic heart failure, chronic left bundle rekha block status post biventricular pacemaker defibrillator implanted on June 2017, severe aortic stenosis, CAD, severe central and obstructive sleep apnea treated with BiPAP, history of CVA while off Coumadin, CKD stage IV, COPD, tobacco abuse with chewing tobacco, HTN, HLD, history of Covid who presents to ED secondary to increased confusion, word finding difficulty and right hand weakness for 1 to 2 days. Pt presents with confusion, word finding difficulty, difficulty with fine motor movements to LUE - resolved now Etiology of encephalopathy unknown at this time : ? if infectious, metabolic, possible cva, vs worsening renal disease He does not meet SIRS/SEPSIS criteria on admission Blood and urine cultures have been negative thus far. We will continue with the Zosyn and daptomycin secondary to left lower extremity wound. Repeat CT head is negative for any concerning findings. Admission CT head negative as well. Appreciate neurology input; toxic metabolic picture. Signed off. Work with PT/OT. A1c of 9.9 from 9.6. LDL of 55. Recent echo obtained 12/04 - documented below Carotid doppler without any significant stenosis. MCKENNA obtained; per wound care - recommend vascular surgery is consulted. (2) Leg wound, left: Plan: Patient seen in ED on 12/14 secondary to wound to left lower extremity. Previously had been following with [place] [facility] and patient unhappy with results. At time of evaluation ESR and CRP mildly elevated, he was placed on Keflex and doxy for which he completed. He presents with increasing left leg pain and no improvement to wound. US on 12/14, negative for dvt, INR therapeutic today Appreciate wound care in put. ESR 51, CRP 0.97 -similar to previous on 12/14 We will continue with Zosyn/daptomycin for now. Blood and wound cultures have been negative thus far. WBC is within normal limit and patient remains afebrile. MCKENNA obtained; per wound care - recommend vascular surgery is consulted - Dg.: PAD - Pt with mild/moderate PAD and is asymptomatic. Pt not candidate for endovascular intervention secondary to severe CKD. No indications for vascular surgical intervention at this time. Recommend continue abx per medicine/wound care, and eval of wounds for debridement by Wound Care provider or General Surgery. General surgery consulted Discussed with wound care nurse, will repeat wound culture (3) Hyperglycemia due to diabetes mellitus: Plan: Last A1c 9.0 10/12/2020, now 9.9 Poor control at baseline, but possible substantial elevation secondary to underlying illness Lantus/NovoLog per protocol Consult glycemic pharmacy, appreciate their input (4) CKD (chronic kidney disease) stage 4, GFR 15-29 ml/min: Plan: Baseline creatinine 2.5-2.8. Today creatinine at 3.78 A/C CKD -4 Appreciate nephrology input. Continue holding torsemide. No indication for urgent dialysis. Avoid nephrotoxic agents Hold torsemide for now (5) CAD (coronary artery disease): (6) CHF (congestive heart failure): Plan: Last echocardiogram 12/04/2020 EF 30%, severe aortic stenosis, mild MR, LVH, moderate hypokinesis Denies chest pain or shortness of breath Appears euvolemic on exam Now with acute on chronic CKD Daily weights, strict I's and O's Continue ASA, warfarin, hydralazine, Imdur, metoprolol Hold torsemide secondary to PAM Hold statin secondary to daptomycin (7) Chronic atrial fibrillation: Plan: Follows [facility] Continue metoprolol and warfarin Recently started on digoxin (8) Presence of combination internal cardiac defibrillator (ICD) and pacemaker: Plan: not MRI compatible (9) ARPIT (obstructive sleep apnea): Plan: bipap at HS with 2L O2 (10) Chronic anemia: Plan: h/h stable at 11.6 and 37.8 no s/sx of bleeding on vitron C likely 2/2 to chronic disease Plan: DVT ppx: continue warfarin Dispo: PCU FULL CODE PCP: Adams Pickett Admission and Anticipated Discharge Date Admission Date: December 30, 2020 Subjective Patient seen in follow-up of left lower extremity wound Currently sitting up in the chair, in no acute distress, no acute events ov ernight, reports ongoing leg pain Denies any fevers, chills, chest pain, shortness of breath He is awake alert answering questions appropriately Seen by vascular surgery today Discussed with the wound nurse -we will obtain repeat wound cultx Review of Systems Review of Systems: All systems reviewed & are unremarkable except as noted in Subjective Physical Exam Physical Exam: General: A&Ox3 HENT: NCAT, MMM, EOMI Eyes: PERRL Neck: Supple, normal range of motion CVS: normal rate and rhythm Resp: b/l good breath sounds Abdomen: Soft, ND/NT, +BS Extremities: Left lower extremity with 3 x 4 cm wound x2 with mild erythema, minimal discharge Neuro: Alert oriented, answering questions appropriately, face symmetric,speech is clear, moves extremities Skin: warm and dry, except as above MSK: normal ROM, no joint swelling/erythema Results & Data Results & Data ([facility]) Vital Signs (Past 12 Hours) Vital Signs Temp Pulse Pulse Pulse Resp BP Pulse Ox 01/02/21 14:17 95 01/02/21 12:00 37.0 C 69 68 20 116/75 96 01/02/21 08:00 36.8 C 67 80 20 129/75 96 01/02/21 04:13 36.6 C 61 10 L 128/75 95 Laboratory Results 01/02/21 01/02/21 01/02/21 Range/Units 11:12 07:11 05:13 WBC (4.8-10.8) K/uL RBC (4.7-6.1) M/uL Hgb (14.0-18.0) g/dL Hct (42-52) % MCV (80-100) fL MCH (25-34) pg MCHC (32-36) g/dL RDW Std Deviation (36.4-46.3) fL RDW Coeff of Joey (11.5-14.5) % Plt Count (130-400) K/uL MPV (7.4-10.4) fL Immature Gran % (Auto) % Neut % (Auto) % Lymph % (Auto) % [place] % (Auto) % Eos % (Auto) % Baso % (Auto) % Neut # (Auto) (1.4-6.5) K/uL Lymph # (Auto) (1.2-3.4) K/uL [place] # (Auto) (0.11-0.59) K/uL Eos # (Auto) (0-0.5) K/uL Baso # (Auto) (0-0.2) K/uL Immature Gran # (Auto) (0.00-0.02) K/uL PT 35.6 H (9.0-12.0) Seconds INR 3.9 H (0.9-1.1) Sodium (136-145) mmol/L Potassium (3.5-5.1) mmol/L Chloride (98-107) mmol/L Carbon Dioxide (21-32) mmol/L Anion Gap (3-11) BUN (7-18) mg/dl Creatinine (0.6-1.4) mg/dl Est Cr Clr Drug Dosing ml/min Est GFR ( Amer) ml/min Est GFR (Non-Af Amer) ml/min BUN/Creatinine Ratio (10-20) Glucose (70-99) mg/dl POC Glucose 172 H 70 (70-99) mg/dl Calcium (8.5-10.1) mg/dl Phosphorus (2.5-4.9) mg/dl Magnesium (1.8-2.4) mg/dl 01/02/21 01/02/21 01/01/21 Range/Units 05:13 05:13 20:04 WBC 5.90 (4.8-10.8) K/uL RBC 3.84 L (4.7-6.1) M/uL Hgb 10.3 L (14.0-18.0) g/dL Hct 33.1 L (42-52) % MCV 86.2 (80-100) fL MCH 26.8 (25-34) pg MCHC 31.1 L (32-36) g/dL RDW Std Deviation 46.9 H (36.4-46.3) fL RDW Coeff of Joey 15.0 H (11.5-14.5) % Plt Count 133 (130-400) K/uL MPV 9.8 (7.4-10.4) fL Immature Gran % (Auto) 0.2 % Neut % (Auto) 73.7 % Lymph % (Auto) 15.6 % [place] % (Auto) 8.1 % Eos % (Auto) 2.2 % Baso % (Auto) 0.2 % Neut # (Auto) 4.35 (1.4-6.5) K/uL Lymph # (Auto) 0.92 L (1.2-3.4) K/uL [place] # (Auto) 0.48 (0.11-0.59) K/uL Eos # (Auto) 0.13 (0-0.5) K/uL Baso # (Auto) 0.01 (0-0.2) K/uL Immature Gran # (Auto) 0.01 (0.00-0.02) K/uL PT (9.0-12.0) Seconds INR (0.9-1.1) Sodium 140 (136-145) mmol/L Potassium 3.5 (3.5-5.1) mmol/L Chloride 106 (98-107) mmol/L Carbon Dioxide 28 (21-32) mmol/L Anion Gap 6.0 (3-11) BUN 59 H (7-18) mg/dl Creatinine 3.78 H (0.6-1.4) mg/dl Est Cr Clr Drug Dosing 23.4 ml/min Est GFR ( Amer) 18.1 ml/min Est GFR (Non-Af Amer) 15.6 ml/min BUN/Creatinine Ratio 15.6 (10-20) Glucose 65 L (70-99) mg/dl POC Glucose 269 H (70-99) mg/dl Calcium 8.6 (8.5-10.1) mg/dl Phosphorus 4.5 (2.5-4.9) mg/dl Magnesium 2.7 H (1.8-2.4) mg/dl 01/01/21 Range/Units 16:24 WBC (4.8-10.8) K/uL RBC (4.7-6.1) M/uL Hgb (14.0-18.0) g/dL Hct (42-52) % MCV (80-100) fL MCH (25-34) pg MCHC (32-36) g/dL RDW Std Deviation (36.4-46.3) fL RDW Coeff of Joey (11.5-14.5) % Plt Count (130-400) K/uL MPV (7.4-10.4) fL Immature Gran % (Auto) % Neut % (Auto) % Lymph % (Auto) % [place] % (Auto) % Eos % (Auto) % Baso % (Auto) % Neut # (Auto) (1.4-6.5) K/uL Lymph # (Auto) (1.2-3.4) K/uL [place] # (Auto) (0.11-0.59) K/uL Eos # (Auto) (0-0.5) K/uL Baso # (Auto) (0-0.2) K/uL Immature Gran # (Auto) (0.00-0.02) K/uL PT (9.0-12.0) Seconds INR (0.9-1.1) Sodium (136-145) mmol/L Potassium (3.5-5.1) mmol/L Chloride (98-107) mmol/L Carbon Dioxide (21-32) mmol/L Anion Gap (3-11) BUN (7-18) mg/dl Creatinine (0.6-1.4) mg/dl Est Cr Clr Drug Dosing ml/min Est GFR ( Amer) ml/min Est GFR (Non-Af Amer) ml/min BUN/Creatinine Ratio (10-20) Glucose (70-99) mg/dl POC Glucose 232 H (70-99) mg/dl Calcium (8.5-10.1) mg/dl Phosphorus (2.5-4.9) mg/dl Magnesium (1.8-2.4) mg/dl Medications Administered Current Inpatient Medications Acetaminophen (Acetaminophen 325 Mg Tab) 650 mg PO Q4H PRN PRN Reason: Pain or Fever Stop: 01/29/21 12:18 Hydrocodone Bitart/Acetaminophen (Hydrocodone/Acetamophen 5/325mg Tab) 1 tab PO Q4H PRN PRN Reason: Pain Stop: 01/13/21 12:28 Last Admin: 01/02/21 09:07 Dose: 1 tab Documented by: Albuterol (Albuterol Hfa 8 Gm Inhaler) 2 puffs INH Q4H PRN PRN Reason: Shortness Of Breath Or Wheezin Stop: 01/29/21 12:35 Albuterol (Albut/Ipratrop 3mg/0.5mg Neb 3 Ml Vial) 3 ml INH QID PRN PRN Reason: Shortness Of Breath Or Wheezin Stop: 01/29/21 12:18 Amlodipine Besylate (Amlodipine Besylate 5 Mg Tab) 2.5 mg PO QAM ALYSIA Stop: 01/30/21 08:59 Last Admin: 01/02/21 08:59 Dose: 2.5 mg Documented by: Ascorbic Acid (Ascorbic Acid 500 Mg Tab) 250 mg PO BID [facility] Stop: 01/29/21 20:59 Last Admin: 01/02/21 08:57 Dose: 250 mg Documented by: Aspirin (Aspirin 81 Mg Ectab) 81 mg PO QAM [facility] Stop: 01/30/21 08:59 Last Admin: 01/02/21 09:00 Dose: 81 mg Documented by: Baclofen (Baclofen 10 Mg Tab) 10 mg PO HS PRN PRN Reason: Cramps Stop: 01/29/21 12:18 Dextrose (Dextrose 50% 50 Ml Syringe) 25 - 50 ml IV UD PRN; Protocol PRN Reason: Hypoglycemia Protocol Stop: 01/29/21 12:18 Last Admin: 12/31/20 00:46 Dose: 25 ml Documented by: Digoxin (Digoxin 0.125 Mg Tab) 0.125 mg PO [id number]@1600 [facility] Stop: 01/30/21 15:59 Last Admin: 12/31/20 16:23 Dose: 0.125 mg Documented by: Ferrous Sulfate (Ferrous Sulfate 325 Mg Tab) 325 mg PO BID [facility] Stop: 01/29/21 20:59 Last Admin: 01/02/21 08:57 Dose: 325 mg Documented by: Fluticasone Propionate (Fluticasone Propionate Na Spr 16 Gm Btl) 2 sprays NA DAILY PRN PRN Reason: Nasal Congestion Stop: 01/29/21 12:18 Fluticasone/Vilanterol (Fluticasone/Vilanterol 100/25mcg 14 Puffs/Inhaler) 1 puffs INH QAM [facility] Stop: 01/30/21 08:59 Last Admin: 01/02/21 09:01 Dose: 1 puffs Documented by: Gabapentin (Gabapentin 100 Mg Cap) 100 mg PO TIDM [facility] Stop: 01/29/21 16:59 Last Admin: 01/02/21 12:12 Dose: 100 mg Documented by: Glucagon (Glucagon For Inj 1 Mg Vial) 1 mg SQ UD PRN; Protocol PRN Reason: Hypoglycemia Protocol Stop: 01/29/21 12:18 Glucose (Glucose 10 Tabs/Tube) 4 - 8 tabs PO UD PRN; Protocol PRN Reason: Hypoglycemia Protocol Stop: 01/29/21 12:18 Glucose (Glucose 40% Gel 15 Gm Tube) 15 - 30 gm PO UD PRN; Protocol PRN Reason: Hypoglycemia Protocol Stop: 01/29/21 12:18 Hydralazine HCl (Hydralazine Hcl 25 Mg Tab) 75 mg PO TID [facility] Stop: 01/29/21 13:59 Last Admin: 01/02/21 09:00 Dose: 75 mg Documented by: Piperacillin Sod/Tazobactam (Sod 4.5 gm/ Dextrose) 120 mls @ 30 mls/hr IV Q8H ALYSIA; Protocol Stop: 01/06/21 14:59 Last Infusion: 01/02/21 12:19 Dose: Infused Documented by: Daptomycin 350 mg/ Syringe 7 mls @ 3.5 mls/min IV Q48H [facility]; Protocol Stop: 01/06/21 12:59 Last Admin: 01/01/21 12:09 Dose: 3.5 mls/min Documented by: Insulin Aspart (Insulin Aspart 100 Units/Ml 3 Ml Pen) 0 units SC AC [facility] Stop: 01/31/21 16:29 Last Admin: 01/02/21 12:12 Dose: 23 units Documented by: Insulin Aspart (Insulin Aspart 100 Units/Ml 3 Ml Pen) 0 units SC HS [facility] Stop: 01/31/21 20:59 Last Admin: 01/01/21 20:45 Dose: 5 units Documented by: Insulin Glargine (Insulin Glargine Solostar 100 Units/Ml 3 Ml Pen) 10 units SC BID [facility] Stop: 02/01/21 08:59 Last Admin: 01/02/21 07:56 Dose: 10 units Documented by: Isosorbide Dinitrate (Isosorbide Dinitrate 10 Mg Tab) 10 mg PO TID@0700,1200,1700 [facility] Stop: 01/29/21 16:59 Last Admin: 01/02/21 12:12 Dose: 10 mg Documented by: Metoprolol Succinate (Metoprolol Succ 50mg Ext Rel Tab) 100 mg PO BID [facility] Stop: 01/29/21 20:59 Last Admin: 01/02/21 09:00 Dose: 100 mg Documented by: Miscellaneous (Carbohydrates For Hypoglycemia ) 15 - 30 gm PO UD PRN PRN Reason: Hypoglycemia Protocol Stop: 01/29/21 12:18 Miscellaneous Information (Pharmacy Glycemic Mgmt Consult) 1 ea N/A UD PRN; Protocol PRN Reason: Consult Stop: 01/29/21 12:18 Miscellaneous Information (Piperacill/Tazobac Consult Active) 1 ea N/A UD PRN PRN Reason: Consult Stop: 01/29/21 12:22 Miscellaneous Information (Daptomycin Consult Active) 1 ea N/A UD PRN PRN Reason: Consult Stop: 01/29/21 12:42 Ondansetron HCl (Ondansetron Inj 2 Mg/Ml 2 Ml Vial) 4 mg IV Q6H PRN PRN Reason: Nausea Stop: 01/29/21 12:18 Pantoprazole Sodium (Pantoprazole 40 Mg Tab) [facility] Stop: 01/30/21 08:59 Last Admin: 01/02/21 08:59 Dose: 40 mg Documented by: Polyethylene Glycol (Polyethylene (Miralax) 17 Gm Pack) 17 gm PO DAILY PRN PRN Reason: Constipation Stop: 01/29/21 12:18 Vitamin D (Cholecalciferol 1,000 Units 25 Mcg Tab) 2,000 units PO [facility] Stop: 01/30/21 08:59 Last Admin: 01/02/21 08:59 Dose: 2,000 units Documented by: Warfarin Sodium (Warfarin Sod 5 Mg Tab) 5 mg PO [id number]@1600 [facility] Stop: 01/31/21 15:59 Last Admin: 01/01/21 16:35 Dose: 5 mg Documented by: Warfarin Sodium (Warfarin Sod 10 Mg Tab) 10 mg PO [id number]@1600 [facility] Stop: 01/29/21 15:59 Last Admin: 12/31/20 16:24 Dose: 10 mg Documented by: (1) CHF (congestive heart failure) Heart failure chronicity: unspecified Heart failure type: unspecified Qualified Code(s): I50.9 - Heart failure, unspecified (2) Leg wound, left Encounter type: subsequent encounter Qualified Code(s): S81.802D - Unspe cified open wound, left lower leg, subsequent encounter
[2021-01-02] MEDS: DIGOXIN 0.125 MG TAB PO SCH (16:40)
--- NOTE | 2021-01-02 16:42 | Nephrology Progress Note ---
Date of Service January 02, 2021 Assessment & Plan (1) Acute on chronic renal failure: Plan: stage one nonoliiguric acute renal failure on CKD 4 w/ stable renal function since admission. source unclear and may simply represent CKD progression. urine findings of glucosuria, proteinuria are not new; no concerns for obstruction at this time. chemistries and volume status for today acceptable. -hold torsemide again once more today; reassess for need daily -daily bmp -cont to avoid nephrotoxins -cont 1.5L fluid limit and <2 gm daily Na diet -no indication for urgent dialysis Admission and Anticipated Discharge Date Admission Date: December 30, 2020 Subjective leg pain better some; no sob; no worsenign edema; no orthopnea; does not mention orthostatic sx, brain fog or focal weakness Review of Systems Review of Systems: All systems reviewed & are unremarkable except as noted in Subjective Physical Exam Constitutional: well developed, well nourished, + obese and cooperative; no acute distress Eyes: EOM intact bilaterally ENMT: Ears: no external ear abnormality Nose: no external nose abnormality Mouth: + dry oral mucous membranes Neck: no nuchal rigidity Respiratory: normal respiratory effort Auscultation: + diminished lung sounds Cardiovascular: Rate/Rhythm: regular rate and regular rhythm Heart Sounds: + murmur Extremities: + edema (trace -1+ LLE > RLE) Gastrointestinal (Abdomen): Inspection/Auscultation: normal bowel sounds Percussion/Palpation: abdomen soft; abdomen nontender Musculoskeletal: Extremities: strength 5/5 throughout Skin: no rashes, warm and dry Psychiatric: Orientation: alert and oriented x 3 Results & Data ([facility]) Vital Signs (Past 12 Hours) Vital Signs Temp Pulse Pulse Pulse Resp BP Pulse Ox 01/02/21 14:17 95 01/02/21 12:00 37.0 C 69 68 20 116/75 96 01/02/21 08:00 36.8 C 67 80 20 129/75 96 Laboratory Results 01/02/21 05:13 01/02/21 05:13
--- NOTE | 2021-01-02 16:43 | Nephrology Progress Note ---
Date of Service January 02, 2021 Assessment & Plan (1) Acute on chronic renal failure: Plan: stage one nonoliiguric acute renal failure on CKD 4 w/ stable renal function since admission. source unclear and may simply represent CKD progression. urine findings of glucosuria, proteinuria are not new; no concerns for obstruction at this time. chemistries and volume status for today acceptable. -hold torsemide again once more today; reassess for need daily -daily bmp -cont to avoid nephrotoxins -cont 1.5L fluid limit and <2 gm daily Na diet -no indication for urgent dialysis Admission and Anticipated Discharge Date Admission Date: December 30, 2020 Subjective leg pain better some; no sob; no worsenign edema; no orthopnea; does not mention orthostatic sx, brain fog or focal weakness Physical Exam Constitutional: well developed, well nourished, + obese and cooperative; no acute distress Eyes: EOM intact bilaterally ENMT: Ears: no external ear abnormality Nose: no external nose abnormality Mouth: + dry oral mucous membranes Neck: no nuchal rigidity Respiratory: normal respiratory effort Auscultation: + diminished lung sounds Cardiovascular: Rate/Rhythm: regular rate and regular rhythm Heart Sounds: + murmur Extremities: + edema (trace -1+ LLE > RLE) Gastrointestinal (Abdomen): Inspection/Auscultation: normal bowel sounds Percussion/Palpation: abdomen soft; abdomen nontender Musculoskeletal: Extremities: strength 5/5 throughout Skin: no rashes, warm and dry Psychiatric: Orientation: alert and oriented x 3 Results & Data ([facility]) Vital Signs (Past 12 Hours) Vital Signs Temp Pulse Pulse Pulse Resp BP Pulse Ox 01/02/21 14:17 95 01/02/21 12:00 37.0 C 69 68 20 116/75 96 01/02/21 08:00 36.8 C 67 80 20 129/75 96
[2021-01-02] MEDS: ADVANCED PROBIOTIC 1250 MG CAPSULE PO SCH (17:16)
[2021-01-03 06:13] LABS: Hematocrit (blood only) 32.4 % (42-52); Hemoglobin 10.2 g/dL (14.0-18.0); Mean Corpuscular Hemoglobin 26.8 pg (25-34); Mean Corpuscular Hgb Conc 31.5 g/dL (32-36); Mean Corpuscular Volume 85.3 fL (80-100); Mean Platelet Volume 9.9 fL (7.4-10.4); Platelet Count 130 K/uL (130-400); RDW Coefficient of Variation 15.4 % (11.5-14.5); RDW Standard Deviation 47.1 fL (36.4-46.3); White Blood Count 5.87 K/uL (4.8-10.8)
[2021-01-03 06:19] LABS: INR 3.1 (0.9-1.1); Prothrombin Time 28.6 Seconds (9.0-12.0)
[2021-01-03 07:03] LABS: BUN Creatinine Ratio 14.1 (10-20); Calcium 8.7 mg/dl (8.5-10.1); Creatinine Clr Calc Pharmacy 19.2 ml/min; Est GFR (African American) 14.4 ml/min; Est GFR (Non-African American) 12.4 ml/min; Magnesium 2.7 mg/dl (1.8-2.4); Phosphorus 4.5 mg/dl (2.5-4.9); Potassium 3.5 mmol/L (3.5-5.1)
[2021-01-03] MEDS: PIPERACILLIN/TAZOBACTAM 4.5 GM in DEXTROSE 5% 100 ML IV SCH ×2 (07:38→16:29)
[2021-01-03] MEDS: ISOSORBIDE DINITRATE 10 MG TAB PO SCH ×3 (07:38→16:30)
--- NOTE | 2021-01-03 08:23 | Hospitalist Progress Note ---
Date of Service January 03, 2021 Assessment & Plan (1) Stroke-like symptoms: Plan: 65 y/o M w/ insulin-dependent T2 DM, chronic atrial fibrillation anticoagulated on warfarin, nonischemic cardiomyopathy with right greater than left biventricular systolic and diastolic heart failure, chronic left bundle rekha block status post biventricular pacemaker defibrillator implanted on June 2017, severe aortic stenosis, CAD, severe central and obstructive sleep apnea treated with BiPAP, history of CVA while off Coumadin, CKD stage IV, COPD, tobacco abuse with chewing tobacco, HTN, HLD, history of Covid who presents to ED secondary to increased confusion, word finding difficulty and right hand weakness for 1 to 2 days. Pt presents with confusion, word finding difficulty, difficulty with fine motor movements to LUE - resolved now Etiology of encephalopathy unknown at this time : ? if infectious, metabolic, possible cva, vs worsening renal disease He does not meet SIRS/SEPSIS criteria on admission Blood and urine cultures have been negative thus far. We will continue with the Zosyn and daptomycin secondary to left lower extremity wound. Repeat CT head is negative for any concerning findings. Admission CT head negative as well. Appreciate neurology input; toxic metabolic picture. Signed off. Work with PT/OT. A1c of 9.9 from 9.6. LDL of 55. Recent echo obtained 12/04 - documented below Carotid doppler without any significant stenosis. MCKENNA obtained; per wound care - recommend vascular surgery is consulted. (2) Leg wound, left: Plan: Patient seen in ED on 12/14 secondary to wound to left lower extremity. Previously had been following with [facility] and patient unhappy with results. At time of evaluation ESR and CRP mildly elevated, he was placed on Keflex and doxy for which he completed. He presents with increasing left leg pain and no improvement to wound. US on 12/14, negative for dvt, INR therapeutic today Appreciate wound care in put. ESR 51, CRP 0.97 -similar to previous on 12/14 We will continue with Zosyn/daptomycin for now. Blood and wound cultures have been negative thus far. WBC is within normal limit and patient remains afebrile. MCKENNA obtained; per wound care - recommend vascular surgery is consulted - Dg.: PAD - Pt with mild/moderate PAD and is asymptomatic. Pt not candidate for endovascular intervention secondary to severe CKD. No indications for vascular surgical intervention at this time. Recommend continue abx per medicine/wound care, and eval of wounds for debridement by Wound Care provider or General Surgery. General surgery consulted - no plan for surgical debridement at this time Discussed with wound care nurse,repeated wound culture - pending (3) Hyperglycemia due to diabetes mellitus: Plan: Last A1c 9.0 10/12/2020, now 9.9 Poor control at baseline, but possible substantial elevation secondary to underlying illness Lantus/NovoLog per protocol Consult glycemic pharmacy, appreciate their input (4) CKD (chronic kidney disease) stage 4, GFR 15-29 ml/min: Plan: Baseline creatinine 2.5-2.8. Now Cr elevated above 4 A/C CKD -4 Appreciate nephrology input. Continue holding torsemide. No indication for urgent dialysis. Avoid nephrotoxic agents Held torsemide, now try diuretics (5) CAD (coronary artery disease): (6) CHF (congestive heart failure): Plan: Last echocardiogram 12/04/2020 EF 30%, severe aortic stenosis, mild MR, LVH, moderate hypokinesis Denies chest pain or shortness of breath Appears euvolemic on exam Now with acute on chronic CKD Daily weights, strict I's and O's Continue ASA, warfarin, hydralazine, Imdur, metoprolol Hold torsemide secondary to PAM Hold statin secondary to daptomycin (7) Chronic atrial fibrillation: Plan: Follows [facility] cardiology Continue metoprolol and warfarin Recently started on digoxin (8) Presence of combination internal cardiac defibrillator (ICD) and pacemaker: Plan: not MRI compatible (9) ARPIT (obstructive sleep apnea): Plan: bipap at HS with 2L O2 (10) Chronic anemia: Plan: h/h stable at 11.6 and 37.8 no s/sx of bleeding on vitron C likely 2/2 to chronic disease Plan: DVT ppx: continue warfarin Dispo: PCU FULL CODE PCP: Adams Pickett Admission and Anticipated Discharge Date Admission Date: December 30, 2020 Subjective Patient seen in follow-up of left lower extremity wound Currently sitting up in the chair, in no acute distress, no acute events overnight Denies any fevers, chills, chest pain, shortness of breath He is awake alert answering questions appropriately Seen by vascular surgery yesterday and ge. surg. today Wound nurse following closely - repeated wound cultx Nephrology following for PAM Review of Systems Review of Systems: All systems reviewed & are unremarkable except as noted in Subjective Physical Exam Physical Exam: General: A&Ox3 HEENT: NCAT, MMM, EOMI, PERRL Neck: Supple, normal range of motion CVS: normal rate and rhythm Resp: b/l good breath sounds Abdomen: Soft, ND/NT, +BS Extremities: Left lower extremity with 3 x 4 cm wound x2 with mild erythema, minimal discharge Neuro: Alert oriented, answering questions appropriately, face symmetric,speech is clear, moves extremities Skin: warm and dry, except as above MSK: normal ROM, no joint swelling/erythema Results & Data Results & Data ([facility]) Vital Signs (Past 12 Hours) Vital Signs Temp Pulse Resp BP Pulse Ox 01/03/21 07:36 36.6 C 81 24 141/77 H 96 01/03/21 03:55 36.5 C 81 20 113/68 96 01/03/21 00:00 37.1 C 65 12 134/73 93 Laboratory Results 01/03/21 01/03/21 01/03/21 Range/Units 07:32 05:41 05:41 WBC 5.87 (4.8-10.8) K/uL RBC 3.80 L (4.7-6.1) M/uL Hgb 10.2 L (14.0-18.0) g/dL Hct 32.4 L (42-52) % MCV 85.3 (80-100) fL MCH 26.8 (25-34) pg MCHC 31.5 L (32-36) g/dL RDW Std Deviation 47.1 H (36.4-46.3) fL RDW Coeff of Joey 15.4 H (11.5-14.5) % Plt Count 130 (130-400) K/uL MPV 9.9 (7.4-10.4) fL PT (9.0-12.0) Seconds INR (0.9-1.1) Sodium 138 (136-145) mmol/L Potassium 3.5 (3.5-5.1) mmol/L Chloride 104 (98-107) mmol/L Carbon Dioxide 27 (21-32) mmol/L Anion Gap 7.0 (3-11) BUN 64 H (7-18) mg/dl Creatinine 4.55 H* D (0.6-1.4) mg/dl Est Cr Clr Drug Dosing 19.2 ml/min Est GFR ( Amer) 14.4 ml/min Est GFR (Non-Af Amer) 12.4 ml/min BUN/Creatinine Ratio 14.1 (10-20) Glucose 131 H (70-99) mg/dl POC Glucose 133 H (70-99) mg/dl Calcium 8.7 (8.5-10.1) mg/dl Phosphorus 4.5 (2.5-4.9) mg/dl Magnesium 2.7 H (1.8-2.4) mg/dl 01/03/21 01/02/21 01/02/21 Range/Units 05:41 20:11 16:27 WBC (4.8-10.8) K/uL RBC (4.7-6.1) M/uL Hgb (14.0-18.0) g/dL Hct (42-52) % MCV (80-100) fL MCH (25-34) pg MCHC (32-36) g/dL RDW Std Deviation (36.4-46.3) fL RDW Coeff of Joey (11.5-14.5) % Plt Count (130-400) K/uL MPV (7.4-10.4) fL PT 28.6 H (9.0-12.0) Seconds INR 3.1 H (0.9-1.1) Sodium (136-145) mmol/L Potassium (3.5-5.1) mmol/L Chloride (98-107) mmol/L Carbon Dioxide (21-32) mmol/L Anion Gap (3-11) BUN (7-18) mg/dl Creatinine (0.6-1.4) mg/dl Est Cr Clr Drug Dosing ml/min Est GFR ( Amer) ml/min Est GFR (Non-Af Amer) ml/min BUN/Creatinine Ratio (10-20) Glucose (70-99) mg/dl POC Glucose 225 H 287 H (70-99) mg/dl Calcium (8.5-10.1) mg/dl Phosphorus (2.5-4.9) mg/dl Magnesium (1.8-2.4) mg/dl 01/02/21 Range/Units 11:12 WBC (4.8-10.8) K/uL RBC (4.7-6.1) M/uL Hgb (14.0-18.0) g/dL Hct (42-52) % MCV (80-100) fL MCH (25-34) pg MCHC (32-36) g/dL RDW Std Deviation (36.4-46.3) fL RDW Coeff of Joey (11.5-14.5) % Plt Count (130-400) K/uL MPV (7.4-10.4) fL PT (9.0-12.0) Seconds INR (0.9-1.1) Sodium (136-145) mmol/L Potassium (3.5-5.1) mmol/L Chloride (98-107) mmol/L Carbon Dioxide (21-32) mmol/L Anion Gap (3-11) BUN (7-18) mg/dl Creatinine (0.6-1.4) mg/dl Est Cr Clr Drug Dosing ml/min Est GFR ( Amer) ml/min Est GFR (Non-Af Amer) ml/min BUN/Creatinine Ratio (10-20) Glucose (70-99) mg/dl POC Glucose 172 H (70-99) mg/dl Calcium (8.5-10.1) mg/dl Phosphorus (2.5-4.9) mg/dl Magnesium (1.8-2.4) mg/dl Medications Administered Current Inpatient Medications Acetaminophen (Acetaminophen 325 Mg Tab) 650 mg PO Q4H PRN PRN Reason: Pain or Fever Stop: 01/29/21 12:18 Hydrocodone Bitart/Acetaminophen (Hydrocodone/Acetamophen 5/325mg Tab) 1 tab PO Q4H PRN PRN Reason: Pain Stop: 01/13/21 12:28 Last Admin: 01/02/21 21:04 Dose: 1 tab Documented by: Albuterol (Albuterol Hfa 8 Gm Inhaler) 2 puffs INH Q4H PRN PRN Reason: Shortness Of Breath Or Wheezin Stop: 01/29/21 12:35 Albuterol (Albut/Ipratrop 3mg/0.5mg Neb 3 Ml Vial) 3 ml INH QID PRN PRN Reason: Shortness Of Breath Or Wheezin Stop: 01/29/21 12:18 Amlodipine Besylate (Amlodipine Besylate 5 Mg Tab) 2.5 mg PO QAM [facility] Stop: 01/30/21 08:59 Last Admin: 01/02/21 08:59 Dose: 2.5 mg Documented by: Ascorbic Acid (Ascorbic Acid 500 Mg Tab) 250 mg PO BID [facility] Stop: 01/29/21 20:59 Last Admin: 01/02/21 20:30 Dose: 250 mg Documented by: Aspirin (Aspirin 81 Mg Ectab) 81 mg PO QAM [facility] Stop: 01/30/21 08:59 Last Admin: 01/02/21 09:00 Dose: 81 mg Documented by: Baclofen (Baclofen 10 Mg Tab) 10 mg PO HS PRN PRN Reason: Cramps Stop: 01/29/21 12:18 Dextrose (Dextrose 50% 50 Ml Syringe) 25 - 50 ml IV UD PRN; Protocol PRN Reason: Hypoglycemia Protocol Stop: 01/29/21 12:18 Last Admin: 12/31/20 00:46 Dose: 25 ml Documented by: Digoxin (Digoxin 0.125 Mg Tab) 0.125 mg PO MoWeFr@1600 [facility] Stop: 01/30/21 15:59 Last Admin: 01/02/21 16:40 Dose: 0.125 mg Documented by: Ferrous Sulfate (Ferrous Sulfate 325 Mg Tab) 325 mg PO BID [facility] Stop: 01/29/21 20:59 Last Admin: 01/02/21 20:29 Dose: 325 mg Documented by: Fluticasone Propionate (Fluticasone Propionate Na Spr 16 Gm Btl) 2 sprays NA DAILY PRN PRN Reason: Nasal Congestion Stop: 01/29/21 12:18 Fluticasone/Vilanterol (Fluticasone/Vilanterol 100/25mcg 14 Puffs/Inhaler) 1 puffs INH QAM [facility] Stop: 01/30/21 08:59 Last Admin: 01/02/21 09:01 Dose: 1 puffs Documented by: Gabapentin (Gabapentin 100 Mg Cap) 100 mg PO TIDM [facility] Stop: 01/29/21 16:59 Last Admin: 01/02/21 16:40 Dose: 100 mg Documented by: Glucagon (Glucagon For Inj 1 Mg Vial) 1 mg SQ UD PRN; Protocol PRN Reason: Hypoglycemia Protocol Stop: 01/29/21 12:18 Glucose (Glucose 10 Tabs/Tube) 4 - 8 tabs PO UD PRN; Protocol PRN Reason: Hypoglycemia Protocol Stop: 01/29/21 12:18 Glucose (Glucose 40% Gel 15 Gm Tube) 15 - 30 gm PO UD PRN; Protocol PRN Reason: Hypoglycemia Protocol Stop: 01/29/21 12:18 Hydralazine HCl (Hydralazine Hcl 25 Mg Tab) 75 mg PO TID [facility] Stop: 01/29/21 13:59 Last Admin: 01/02/21 20:31 Dose: 75 mg Documented by: Piperacillin Sod/Tazobactam (Sod 4.5 gm/ Dextrose) 120 mls @ 30 mls/hr IV Q8H [facility]; Protocol Stop: 01/06/21 14:59 Last Admin: 01/03/21 07:38 Dose: 30 mls/hr Documented by: Daptomycin 350 mg/ Syringe 7 mls @ 3.5 mls/min IV Q48H [facility]; Protocol Stop: 01/06/21 12:59 Last Admin: 01/01/21 12:09 Dose: 3.5 mls/min Documented by: Insulin Aspart (Insulin Aspart 100 Units/Ml 3 Ml Pen) 0 units SC AC [facility] Stop: 01/31/21 16:29 Last Admin: 01/02/21 16:45 Dose: 32 units Documented by: Insulin Aspart (Insulin Aspart 100 Units/Ml 3 Ml Pen) 0 units SC HS [facility] Stop: 01/31/21 20:59 Last Admin: 01/02/21 21:02 Dose: 2 units Documented by: Insulin Glargine (Insulin Glargine Solostar 100 Units/Ml 3 Ml Pen) 10 units SC BID [facility] Stop: 02/01/21 08:59 Last Admin: 01/02/21 20:24 Dose: 10 units Documented by: Isosorbide Dinitrate (Isosorbide Dinitrate 10 Mg Tab) 10 mg PO TID@0700,1200,1700 [facility] Stop: 01/29/21 16:59 Last Admin: 01/03/21 07:38 Dose: 10 mg Documented by: Lactobacillus Acidoph/Casei/Rhamnos (Advanced Probiotic 1250 Mg Capsule) 2 cap PO DAILY [facility] Stop: 02/01/21 16:14 Last Admin: 01/02/21 17:16 Dose: 2 cap Documented by: Metoprolol Succinate (Metoprolol Succ 50mg Ext Rel Tab) 100 mg PO BID [facility] Stop: 01/29/21 20:59 Last Admin: 01/02/21 20:32 Dose: 100 mg Documented by: Miscellaneous (Carbohydrates For Hypoglycemia ) 15 - 30 gm PO UD PRN PRN Reason: Hypoglycemia Protocol Stop: 01/29/21 12:18 Miscellaneous Information (Pharmacy Glycemic Mgmt Consult) 1 ea N/A UD PRN; Protocol PRN Reason: Consult Stop: 01/29/21 12:18 Miscellaneous Information (Piperacill/Tazobac Consult Active) 1 ea N/A UD PRN PRN Reason: Consult Stop: 01/29/21 12:22 Miscellaneous Information (Daptomycin Consult Active) 1 ea N/A UD PRN PRN Reason: Consult Stop: 01/29/21 12:42 Ondansetron HCl (Ondansetron Inj 2 Mg/Ml 2 Ml Vial) 4 mg IV Q6H PRN PRN Reason: Nausea Stop: 01/29/21 12:18 Pantoprazole Sodium (Pantoprazole 40 Mg Tab) 40 mg PO QAM [facility] Stop: 01/30/21 08:59 Last Admin: 01/02/21 08:59 Dose: 40 mg Documented by: Polyethylene Glycol (Polyethylene (Miralax) 17 Gm Pack) 17 gm PO DAILY PRN PRN Reason: Constipation Stop: 01/29/21 12:18 Vitamin D (Cholecalciferol 1,000 Units 25 Mcg Tab) [facility] Stop: 01/30/21 08:59 Last Admin: 01/02/21 08:59 Dose: 2,000 units Documented by: Warfarin Sodium (Warfarin Sod 5 Mg Tab) 5 mg PO [id number]@1600 [facility] Stop: 01/31/21 15:59 Last Admin: 01/01/21 16:35 Dose: 5 mg Documented by: Warfarin Sodium (Warfarin Sod 10 Mg Tab) 10 mg PO [id number]@1600 [facility] Stop: 01/29/21 15:59 Last Admin: 12/31/20 16:24 Dose: 10 mg Documented by: (1) CHF (congestive heart failure) Heart failure chronicity: unspecified Heart failure type: unspecified Qualified Code(s): I50.9 - Heart failure, unspecified (2) Leg wound, left Encounter type: subsequent encounter Qualified Code(s): S81.802D - Unspecified open wound, left lower leg, subsequent encounter
[2021-01-03] MEDS: INSULIN ASPART 100 UNITS/ML 3 ML PEN SC SCH ×4 (08:30→21:03)
[2021-01-03] MEDS: CHOLECALCIFEROL 1,000 UNITS 25 MCG TAB PO SCH (08:40)
[2021-01-03] MEDS: METOPROLOL SUCC 50MG EXT REL TAB PO SCH ×2 (08:40→21:01)
[2021-01-03] MEDS: PANTOprazole 40 MG TAB PO SCH (08:40)
[2021-01-03] MEDS: HYDROCODONE/ACETAMOPHEN 5/325MG TAB PO PRN (08:40)
[2021-01-03] MEDS: ASCORBIC ACID 500 MG TAB PO SCH ×2 (08:41→20:58)
[2021-01-03] MEDS: amLODIPine BESYLATE 5 MG TAB PO SCH (08:42)
[2021-01-03] MEDS: hydrALAZINE HCL 25 MG TAB PO SCH ×3 (08:42→20:59)
[2021-01-03] MEDS: ASPIRIN 81 MG ECTAB PO SCH (08:43)
[2021-01-03] MEDS: GABAPENTIN 100 MG CAP PO SCH ×3 (08:43→16:30)
[2021-01-03] MEDS: FERROUS SULFATE 325 MG TAB PO SCH ×2 (08:43→20:59)
[2021-01-03] MEDS: FLUTICASONE/VILANTEROL 100/25MCG 14 PUFFS/INHALER INH SCH (08:43)
[2021-01-03] MEDS: ADVANCED PROBIOTIC 1250 MG CAPSULE PO SCH (08:43)
[2021-01-03] MEDS: INSULIN GLARGINE SOLOSTAR 100 UNITS/ML 3 ML PEN SC SCH ×2 (08:49→21:02)
--- NOTE | 2021-01-03 08:51 | Surgery Consultation ---
Date of Consultation January 03, 2021 Assessment & Plan (1) Leg wound, left: these are likely arterial ulcers. per vascular surgery he is not a surgical candidate. wounds too painful to debride at bedside and pt extremely high risk for anesthesia. I do not believe the risk/benefit warrants OR debridement at this time. Also on coumadin and INR currently over 3. I recommend continued conservative management to include santyl for enzymatic debridement and keep wounds moist and dressings to prevent drying of wound bed. recommend f/u at out-pt wound clinic at d/c. will continue to follow from periphery but do not plan debridement during current admission as risks outweigh benefits. (2) Leg wound, right: (3) CKD (chronic kidney disease) stage 4, GFR 15-29 ml/min: (4) PAD (peripheral artery disease): History of Present Illness Reason for Consultation: LE wounds Attending Physician: Angel Mane MD History of Present Illness 66 y/o male with extensive PMH/comorbidities admitted with stroke like symptoms. PMH inclcudes CKD, DM, ARPIT, CHF, a-fib, cad, htn, hx of CVA, PAD, among others. has had chronic b/l LE wounds for 4-5 months. etiology unclear. they are painful. he had been seeing the [facility] wound [facility]. Allergies Allergy/AdvReac Type Severity Reaction Status Date / Time No Known Allergies Allergy Verified 12/30/20 10:11 Home Medications Medication Instructions Recorded Confirmed Type aspirin 81 mg tablet,delayed 81 mg PO QAM 02/05/18 12/30/20 History release cholecalciferol (vitamin D3) 50 2,000 unit PO QAM 02/05/18 12/30/20 History mcg (2,000 unit) capsule (Vitamin D3) pantoprazole 40 mg tablet,delayed 40 mg PO QAM 02/05/18 12/30/20 History release (Protonix) gabapentin 100 mg capsule 100 mg PO TIDM 05/14/18 12/30/20 History albuterol sulfate 90 mcg/actuation 2 puff INHALATION Q4H PRN 08/01/18 12/30/20 History aerosol inhaler (ProAir HFA) fluticasone propionate 50 2 spray INTRANASAL DAILY PRN 08/01/18 12/30/20 History mcg/actuation nasal spray,suspension (Flonase Allergy Relief) ipratropium 0.5 mg-albuterol 3 mg 3 ml INHALATION QID PRN 08/01/18 12/30/20 History (2.5 mg base)/3 mL nebulization soln insulin lispro 100 unit/mL See Rx Instructions .ROUTE .COMPLEX 06/05/19 12/30/20 History subcutaneous pen (Humalog KwikPen (U-100) Insulin) iron,carbonyl 65 mg-vitamin C 125 1 tab PO BID 06/05/19 12/30/20 History mg tablet,delayed release (Vitron-C) fluticasone furoate 100 1 inh INHALATION QAM 03/02/20 12/30/20 History mcg-vilanterol 25 mcg/dose inhalation powder (Breo Ellipta) insulin glargine 100 unit/mL (3 30 unit SUBCUT BID 04/23/20 12/30/20 History mL) subcutaneous pen (Lantus Solostar U-100 Insulin) warfarin 5 mg tablet 10 mg PO 4XWK 04/23/20 12/30/20 History baclofen 10 mg tablet 10 mg PO HS PRN 08/05/20 12/30/20 History warfarin 5 mg tablet 5 mg PO 3XWK 08/05/20 12/30/20 History guaifenesin 600 mg tablet, 600 mg PO Q12 PRN #10 tab 08/14/20 12/30/20 Rx extended release 12 hr (Mucinex) isosorbide dinitrate 10 mg tablet 10 mg PO TIDM #0 tab 08/14/20 12/30/20 Rx metoprolol succinate 100 mg 100 mg PO BID #60 tab 08/14/20 12/30/20 Rx tablet,extended release 24 hr (Toprol XL) amlodipine 2.5 mg tablet 2.5 mg PO QAM 09/17/20 12/30/20 History atorvastatin 80 mg tablet 80 mg PO QPM 09/17/20 12/30/20 History hydralazine 25 mg tablet 75 mg PO TID 09/17/20 12/30/20 History torsemide 20 mg tablet 20 mg PO UD #90 tab 09/19/20 12/30/20 Rx digoxin 125 mcg (0.125 mg) tablet 125 mcg PO 3XWK 12/14/20 12/30/20 History Patient History Medical History Aortic stenosis Severe aortic stenosis vs pseudo aortic stenosis due to low output per cardio note from 12/2019 ECHO Asthma Atrial fibrillation on warfarin CAD (coronary artery disease) "nonobstructive" Chronic anemia Chronic kidney disease Stage 4, under surveillance by Dr. Mcdermott (no dialysis at this time) Chronic systolic (congestive) heart failure COPD (chronic obstructive pulmonary disease) Diabetic neuropathy DM type 2 (diabetes mellitus, type 2) IDDM Dyslipidemia Gall stones GERD (gastroesophageal reflux disease) History of COVID-19 Dx 08/05/20(hospitalized at [facility]) > symptoms at time of cough, SOB, generalized weakness, n/v/d, loss of taste/smell > "resolved" History of multiple pulmonary nodules Hypertension LBBB (left bundle branch block) Nonischemic cardiomyopathy S/p BIV AICD in place; follows with Dr. Graves Presence of combination internal cardiac defibrillator (ICD) and pacemaker Implanted 5+ years ago, [employer], last check 07/2020 Pulmonary HTN PVD (peripheral vascular disease) Sleep apnea + nocturnal hypoxia > BIPAP + 2L O2 HS Stroke 11/2019 > residual speech difficulty/short term memory issues Surgical History H/O cardiac catheterization Non nonobstructive CAD on 2017 cardiac cath H/O total adrenalectomy Left (25 years ago) History of colonoscopy History of esophagogastroduodenoscopy (EGD) Family History Sister Diabetes Brother Diabetes Other Hypertension Lung cancer Social History Smoking Status: Never smoker Tobacco Type: Smokeless Tobacco (Dip or Chew) Second Hand Exposure: Yes (parents smoked); Do You Dip or Chew Tobacco: Yes; Hx Alcohol Use: No Hx Substance Use: No Preferred Language: Iraqi Communication Ability: Effective Visual Impairment: Limited Assistant Director Of Financial Aid Required: No Beliefs That Will Affect Care: None marital status: Current Living Situation: Spouse current occupational status: retired 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 Other Information That Helps Us Care for You: No Feels Safe at Home: Yes Safety Concerns: Feels Safe At This Time Assistive Devices: None Review of Systems Review of Systems: All systems reviewed & are unremarkable except as noted in HPI & below Physical Exam Constitutional: WD/WN, vitals as above no acute distress and not ill appearing Eyes: PERRL, conjunctivae normal, anicteric sclerae EOM intact bilaterally ENMT: external ear and nose normal, oropharynx normal Ears: no hearing impairment Neck: trachea midline, no thyromegaly Respiratory: normal respiratory effort; no respiratory distress and does not use accessory muscles Cardiovascular: Irreg rhythm Gastrointestinal (Abdomen): normal bowel sounds, soft, nontender, no hepatosplenomegaly Skin: B/l LE wounds. relatively superficial. all with black central eschar. all tender. raised/erythematous borders with some granulation tissue. no drainage. see wound care nurse report for full description. Psychiatric: Orientation: alert, oriented x 3 and cooperative Results & Data ([facility]) Vital Signs (Past 12 Hours) Vital Signs Temp Pulse Resp BP Pulse Ox 01/03/21 07:36 36.6 C 81 24 141/77 H 96 01/03/21 03:55 36.5 C 81 20 113/68 96 01/03/21 00:00 37.1 C 65 12 134/73 93 PG Care Time/CCT Total # of Minutes Spent Total Time Spent with Patient: Total time spent is greater than 50% in coordination of care (as documented) at patient's floor/unit and/or counseling patient: Coding Level of Care Code 66132 Initial Inpt Care Lvl 3 Diagnoses Leg wound, left S81.802A Encounter type: initial encounter Leg wound, right S81.801A CKD (chronic kidney disease) stage 4, GFR 15-29 ml/min N18.4 PAD (peripheral artery disease) I73.9 (1) Leg wound, left Encounter type: initial encounter Qualified Code(s): S81.802A - Unspecified open wound, left lower leg, initial encounter
--- NOTE | 2021-01-03 11:32 | Pharmacy Report ---
Pharmacy Glycemic Short Note 2 - Date of Service January 03, 2021 - Glycemic Short BSG Results (Last 24 hours): 01/02/21 01/02/21 01/03/21 16:27 20:11 05:41 Glucose 131 H POC Glucose 287 H 225 H 01/03/21 07:32 Glucose POC Glucose 133 H OUTPATIENT ANTIDIABETIC REGIMEN: * Lantus 30 units SQ BID * Lispro 5 units breakfast, 25 units lunch and dinner, 15 units with carb heavy bedtime snack ASSESSMENT: 01/03 * 94 units SQ insulin given over last 24 hrs while tolerating a diet * Fasting BSG 133 this AM w/ 20 units Lantus on board and only 2 units correctional insulin last night - will continue the same * 2 of 3 post-prandial BSGs elevated yesterday. Pt is VERY carb sensitive. Will continue to increase prandial insulin doses. 01/02 * 87 units SQ insulin given over last 24 hrs while tolerating a diet * Fasting BSG 65-70 this AM w/ 25 units basal on board, and after receiving 5 units correctional insulin at HS. Will decrease basal insulin and HS Novolog dose. * Post-prandial BSGs elevated 3 of 3 yesterday, however lunchtime BSG at goal this AM with new carb ratio. Will continue the same for now. 01/01 * Patient received 117 units SQ insulin over last 24 hours while tolerating a diet * Fasting BSG 85-101 this AM w/ 50 units basal on board. Of note, pt did develop mild hypoglycemia overnight - likely due to excess basal but HS N ovolog dose may have contributed as well. Based upon prior admission data, a reduced basal dose of 25-35 units per day may be required * Post-prandial BSGs elevated yesterday - will adjust carb ratio this afternoon to allow for greater prandial doses 12/31 * Patient started on insulin infusion last evening, transitioned off around midnight. BSGs this morning 123 mg/dL 162 mg/dL * Lunch BSG was taken after patient had already ate, did cover for carbs but no correction, plan to repeat BSG at 1400 * Will continue 25 units of lantus BID for now, will continue current novolog p arameters, tighten if BSG significantly elevated 12/30 * 65 yo male with extensive PMH, including CKD stage IV, COPD, CVD, AFib, Type 2 DM, admitted with encephalopathy, stroke like symptoms, on IV antibiotics. * Patient managed on basal bolus insulin at home, hyperglycemic on arrival, anion gap 9, received 10 units IV insulin in ER. * Blood sugar better 450 --> 282mg/dl, will use basal bolus insulin at this time and titrate to goal blood sugar. PLAN FOR INPATIENT GLYCEMIC CONTROL: * Basal insulin - continue * Lantus 10 units SQ BID * Bolus insulin - increase prandial * NovoLog per scale ACHS or Q6hrs while NPO * Goal Range: Low 110 mg/dL - High 140 mg/dL (140-180 mg/dL at HS) * Correction Factor: 15 mg/dL/unit prior to meals; 30 mg/dL/unit at HS * Nutritional / Prandial insulin per carb ratio of 1 unit per 2.2 grams CHO consumed with meals, 1 unit per 10 grams CHO consumed HS PLAN FOR DISCHARGE: * see para educator note
[2021-01-03] MEDS: DAPTOmycin 350 MG in SYRINGE 0 ML IV SCH (12:17)
--- NOTE | 2021-01-03 15:28 | Nephrology Progress Note ---
Date of Service January 03, 2021 Assessment & Plan (1) Acute on chronic renal failure: Plan: worsening stage one nonoliiguric acute renal failure on CKD 4 as of 01/03 after having had stable (albeit worse than baseline) renal function since admission. presenting creat may simply represent CKD progression. now w/ worsened renal function >? ATN from antibiotics/wounds versus emerging HF after being off of diuretics. Admission urine findings of glucosuria, proteinuria are not new; no concerns for obstruction at this time. chemistries for today acceptable though K a bit low and now moderately volume overloaded. -lasix 40 mg IV x 1 now -K 40 mEq po x 1 now -repeat UA ordered -CK ordered for AM -Dr Mane to review/ pare abtx as indicated -daily bmp -cont to avoid nephrotoxins -cont 1.5L fluid limit and <2 gm daily Na diet -no indication for urgent dialysis but I have discussed with him that if his numbers worsen significantly he may need it this admission care coordinated w/ Dr Mane Admission and Anticipated Discharge Date Admission Date: December 30, 2020 Subjective no overnight events; noting more edema BLE; no worsening breath; no new/worrisome voiding concerns; leg wounds not appropriate for vascular or surgical intervention currently; pt seen on rounds approx [id number] Review of Systems Review of Systems: All systems reviewed & are unremarkable except as noted in Subjective Physical Exam Constitutional: well developed, well nourished, + obese and cooperative; no acute distress Eyes: EOM intact bilaterally ENMT: Ears: no external ear abnormality Nose: no external nose abnormality Mouth: + dry oral mucous membranes Neck: no nuchal rigidity Respiratory: normal respiratory effort Auscultation: + diminished lung sounds Cardiovascular: Rate/Rhythm: regular rate (w/ some premature beats) and regular rhythm Heart Sounds: + murmur Extremities: + edema (trace -1+ LLE > RLE) Gastrointestinal (Abdomen): Inspection/Auscultation: normal bowel sounds Percussion/Palpation: abdomen soft; abdomen nontender Musculoskeletal: Extremities: strength 5/5 throughout Skin: no rashes, warm and dry Psychiatric: Orientation: alert and oriented x 3 Results & Data ([facility]) Vital Signs (Past 12 Hours) Vital Signs Temp Pulse Pulse Resp BP Pulse Ox 01/03/21 11:52 67 20 138/79 94 01/03/21 07:36 36.6 C 81 24 141/77 H 96 01/03/21 03:55 36.5 C 81 20 113/68 96 Laboratory Results 01/03/21 05:41 01/03/21 05:41
[2021-01-03] MEDS ORDERED: FUROSEMIDE 40 MG in SYRINGE 0 ML IV STA (15:54)
[2021-01-03] MEDS ORDERED: POTASSIUM CHLORIDE CRTAB 20 MEQ TABCR PO STA (15:56)
[2021-01-03 20:19] LABS: Appearance Urine Clear (Clear); Bacteria Urine Automated Negative (Negative); Bilirubin Urine Negative (Negative); Blood Urine Negative (Negative); Color Urine Yellow; Glucose Urine UA 2+ (Negative); Ketones Urine Negative (Negative); Leukocyte Esterase Urine Negative (Negative); Nitrite Urine Negative (Negative); Protein Urine 2+ (Negative); Specific Gravity Urine 1.016 (1.000-1.030); Urobilinogen Urine Negative (Negative)
[2021-01-04] MEDS: HYDROCODONE/ACETAMOPHEN 5/325MG TAB PO PRN ×3 (02:19→21:25)
[2021-01-04] MEDS: PIPERACILLIN/TAZOBACTAM 4.5 GM in DEXTROSE 5% 100 ML IV SCH ×2 (03:31→16:17)
[2021-01-04 05:49] LABS: Prothrombin Time 19.3 Seconds (9.0-12.0)
[2021-01-04 06:23] LABS: BUN Creatinine Ratio 13.9 (10-20); Calcium 8.8 mg/dl (8.5-10.1); Creatinine Clr Calc Pharmacy 18.5 ml/min; Est GFR (African American) 13.8 ml/min; Est GFR (Non-African American) 11.9 ml/min; Potassium 3.6 mmol/L (3.5-5.1)
[2021-01-04] MEDS ORDERED: POTASSIUM CHLORIDE CRTAB 20 MEQ TABCR PO STA (07:16)
[2021-01-04] MEDS ORDERED: FUROSEMIDE 40 MG in SYRINGE 0 ML IV ONE (07:30)
[2021-01-04] MEDS ORDERED: INSULIN GLARGINE SOLOSTAR 100 UNITS/ML 3 ML PEN SC SCH ×2 (09:00→21:00)
[2021-01-04] MEDS: CHOLECALCIFEROL 1,000 UNITS 25 MCG TAB PO SCH (09:03)
[2021-01-04] MEDS: ISOSORBIDE DINITRATE 10 MG TAB PO SCH ×3 (09:04→16:18)
[2021-01-04] MEDS: amLODIPine BESYLATE 5 MG TAB PO SCH (09:04)
[2021-01-04] MEDS: hydrALAZINE HCL 25 MG TAB PO SCH ×3 (09:04→21:24)
[2021-01-04] MEDS: ASCORBIC ACID 500 MG TAB PO SCH ×2 (09:04→21:24)
[2021-01-04] MEDS: ADVANCED PROBIOTIC 1250 MG CAPSULE PO SCH (09:04)
[2021-01-04] MEDS: FLUTICASONE/VILANTEROL 100/25MCG 14 PUFFS/INHALER INH SCH (09:05)
[2021-01-04] MEDS: FERROUS SULFATE 325 MG TAB PO SCH ×2 (09:05→21:24)
[2021-01-04] MEDS: PANTOprazole 40 MG TAB PO SCH (09:05)
[2021-01-04] MEDS: METOPROLOL SUCC 50MG EXT REL TAB PO SCH ×2 (09:05→21:25)
[2021-01-04] MEDS: GABAPENTIN 100 MG CAP PO SCH ×3 (09:06→16:18)
[2021-01-04] MEDS: INSULIN ASPART 100 UNITS/ML 3 ML PEN SC SCH ×4 (09:07→21:15)
[2021-01-04] MEDS: ASPIRIN 81 MG ECTAB PO SCH (09:08)
--- NOTE | 2021-01-04 10:33 | Nephrology Progress Note ---
Date of Service January 04, 2021 Assessment & Plan (1) Acute on chronic renal failure: Plan: further worsening stage one nonoliguric acute renal failure on CKD 4 as of 01/03 after having had stable (albeit worse than baseline) renal function since admission. presenting creat may simply represent CKD progression. now w/ worsened renal function > ATN from antibiotics/wounds versus emerging HF after being off of diuretics. Admission urine findings of glucosuria, proteinuria are not new; no concerns for obstruction or UTI at this time. chemistries for today acceptable though K a bit low and now moderately volume overloaded. -lasix 40 mg IV x 1 again now; had a dose yesterday; minimal output w/ lasix and will chagne to bumex 2 mg IV bid17, first dose this afternoon -K 40 mEq po x 1 again now; had a dose yesterday -CK wnl -Dr Mane to review/ pare abtx as indicated -daily bmp -cont to avoid nephrotoxins -cont 1.5L fluid limit and <2 gm daily Na diet -no indication for urgent dialysis but I have discussed with him that if his numbers worsen significantly he may need it this admission Admission and Anticipated Discharge Date Admission Date: December 30, 2020 Subjective no interval events; primary service working on [facility] recs; started on 40 mg IV lasix this am and had 400 mL UOP only w/ this; slightly more edema; denies sob but wearing 02 when I walk in room; no n/v/anorexia; no chest discomfort Review of Systems Review of Systems: All systems reviewed & are unremarkable except as noted in Subjective Physical Exam Constitutional: well developed, well nourished, + obese and cooperative; no acute distress Eyes: EOM intact bilaterally ENMT: Ears: no external ear abnormality Nose: no external nose abnormality Mouth: + dry oral mucous membranes Neck: no nuchal rigidity Respiratory: normal respiratory effort Auscultation: + diminished lung kurtis nds Cardiovascular: Rate/Rhythm: regular rate and regular rhythm Heart Sounds: + murmur Extremities: + edema (1+ LLE > RLE) Gastrointestinal (Abdomen): Inspection/Auscultation: normal bowel sounds Percussion/Palpation: abdomen soft; abdomen nontender Musculoskeletal: Extremities: strength 5/5 throughout Skin: no rashes, warm and dry skin ulcers LE as prev Psychiatric: Orientation: alert and oriented x 3 Results & Data ([facility]) Vital Signs (Past 12 Hours) Vital Signs Temp Pulse Resp BP Pulse Ox 01/04/21 03:56 36.6 C 68 20 132/67 95 01/04/21 00:22 36.7 C 70 20 144/69 H 95 Laboratory Results 01/03/21 05:41 01/04/21 05:26
--- NOTE | 2021-01-04 14:13 | Pharmacy Report ---
Pharmacy Glycemic Short Note 2 - Date of Service January 04, 2021 - Glycemic Short BSG Results (Last 24 hours): 01/03/21 01/03/21 01/04/21 16:27 20:55 05:26 Glucose 146 H POC Glucose 311 H* 282 H 01/04/21 01/04/21 07:33 11:43 Glucose POC Glucose 147 H 214 H OUTPATIENT ANTIDIABETIC REGIMEN: * Lantus 30 units SQ BID * Lispro 5 units breakfast, 25 units lunch and dinner, 15 units with carb heavy bedtime snack ASSESSMENT: 01/04 * 86 units SQ insulin given over last 24 hrs while tolerating a diet * Fasting BSG 147 this AM with 20 units Lantus on board and 4 units correctional insulin last night - will titrate up given current trend * Post-prandial BSG again elevated despite increase in prandial doses yesterday - will continue to up-titrate as well 01/03 * 94 units SQ insulin given over last 24 hrs while tolerating a diet * Fasting BSG 133 this AM w/ 20 units Lantus on board and only 2 units correctional insulin last night - will continue the same * 2 of 3 post-prandial BSGs elevated yesterday. Pt is VERY carb sensitive. Will continue to increase prandial insulin doses. 01/02 * 87 units SQ insulin given over last 24 hrs while tolerating a diet * Fasting BSG 65-70 this AM w/ 25 units basal on board, and after receiving 5 units correctional insulin at HS. Will decrease basal insulin and HS Novolog dose. * Post-prandial BSGs elevated 3 of 3 yesterday, however lunchtime BSG at goal this AM with new carb ratio. Will continue the same for now. 01/01 * Patient received 117 units SQ insulin over last 24 hours while tolerating a diet * Fasting BSG 85-101 this AM w/ 50 units basal on board. Of note, pt did develop mild hypoglycemia overnight - likely due to excess basal but HS Novolog dose may have contributed as well. Based upon prior admission data, a reduced basal dose of 25-35 units per day may be required * Post-prandial BSGs elevated yesterday - will adjust carb ratio this afternoon to allow for greater prandial doses 12/31 * Patient started on insulin infusion last evening, transitioned off around midnight. BSGs this morning 123 mg/dL 162 mg/dL * Lunch BSG was taken after patient had already ate, did cover for carbs but no correction, plan to repeat BSG at 1400 * Will continue 25 units of lantus BID for now, will continue current novolog parameters, tighten if BSG significantly elevated 12/30 * 65 yo male with extensive PMH, including CKD stage IV, COPD, CVD, AFib, Type 2 DM, admitted with encephalopathy, stroke like symptoms, on IV antibiotics. * Patient managed on basal bolus insulin at home, hyperglycemic on arrival, anion gap 9, received 10 units IV insulin in ER. * Blood sugar better 450 --> 282mg/dl, will use basal bolus insulin at this time and titrate to goal blood sugar. PLAN FOR INPATIENT GLYCEMIC CONTROL: * Basal insulin - continue * Lantus 15 units SQ Q AM + 10 units Q PM * Bolus insulin - increase prandial * NovoLog per scale ACHS or Q6hrs while NPO * Goal Range: Low 110 mg/dL - High 140 mg/dL (140-180 mg/dL at HS) * Correction Factor: 10 mg/dL/unit prior to meals; 30 mg/dL/unit at HS * Nutritional / Prandial insulin per carb ratio of 1 unit per 2 grams CHO consumed with meals, 1 unit per 10 grams CHO consumed HS PLAN FOR DISCHARGE: * see hospice educator note
[2021-01-04] MEDS: WARFARIN SOD 10 MG TAB PO SCH (16:16)
[2021-01-04] MEDS: DIGOXIN 0.125 MG TAB PO SCH (16:17)
[2021-01-04] MEDS: BUMETANIDE 2 MG in SYRINGE 0 ML IV SCH (18:19)
[2021-01-05] MEDS: HYDROCODONE/ACETAMOPHEN 5/325MG TAB PO PRN ×3 (03:01→21:16)
[2021-01-05] MEDS: PIPERACILLIN/TAZOBACTAM 4.5 GM in DEXTROSE 5% 100 ML IV SCH ×2 (05:27→17:38)
--- NOTE | 2021-01-05 06:34 | Hospitalist Progress Note ---
Date of Service January 04, 2021 Assessment & Plan (1) Stroke-like symptoms: Plan: 65 y/o M w/ insulin-dependent T2 DM, chronic atrial fibrillation anticoagulated on warfarin, nonischemic cardiomyopathy with right greater than left biventricular systolic and diastolic heart failure, chronic left bundle rekha block status post biventricular pacemaker defibrillator implanted on June 2017, severe aortic stenosis, CAD, severe central and obstructive sleep apnea treated with BiPAP, history of CVA while off Coumadin, CKD stage IV, COPD, tobacco abuse with chewing tobacco, HTN, HLD, history of Covid who presents to ED secondary to increased confusion, word finding difficulty and right hand weakness for 1 to 2 days. Pt presents with confusion, word finding difficulty, difficulty with fine motor movements to LUE - resolved now Etiology of encephalopathy unknown at this time : ? if infectious, metabolic, possible cva, vs worsening renal disease He does not meet SIRS/SEPSIS criteria on admission Blood and urine cultures have been negative thus far. We will continue with the Zosyn and daptomycin secondary to left lower extremity wound. Repeat CT head is negative for any concerning findings. Admission CT head negative as well. Appreciate neurology input; toxic metabolic picture. Signed off. Work with PT/OT. A1c of 9.9 from 9.6. LDL of 55. Recent echo obtained 12/04 - documented below Carotid doppler without any significant stenosis. MCKENNA obtained; per wound care - recommend vascular surgery is consulted. (2) Leg wound, left: Plan: Patient seen in ED on 12/14 secondary to wound to left lower extremity. Previously had been following with [place] [facility] and patient unhappy with results. At time of evaluation ESR and CRP mildly elevated, he was placed on Keflex and doxy for which he completed. He presents with increasing left leg pain and no improvement to wound. US on 12/14, negative for dvt, INR therapeutic today Appreciate wound care in put. ESR 51, CRP 0.97 -similar to previous on 12/14 We will continue with Zosyn/daptomycin for now. Follow wound cultx - plan to switch to PO Abx Blood and wound cultures have been negative thus far. WBC is within normal limit and patient remains afebrile. MCKENNA obtained; per wound care - recommend vascular surgery is consulted - Dg.: PAD - Pt with mild/moderate PAD and is asymptomatic. Pt not candidate for endovascular intervention secondary to severe CKD. No indications for vascular surgical intervention at this time. Recommend continue abx per medicine/wound care, and eval of wounds for debridement by Wound Care provider or General Surgery. General surgery consulted - no plan for surgical debridement at this time Discussed with wound care nurse,repeated wound culture - pending Debridement per wound care, outpt wound care appointment not until end of December - may need to be seen by surgery as outpt earlier (3) Hyperglycemia due to diabetes mellitus: Plan: Last A1c 9.0 10/12/2020, now 9.9 Poor control at baseline, but possible substantial elevation secondary to underlying illness Lantus/NovoLog per protocol Consult glycemic pharmacy, appreciate their input (4) CKD (chronic kidney disease) stage 4, GFR 15-29 ml/min: Plan: Baseline creatinine 2.5-2.8. Now Cr elevated above 4 A/C CKD -4 Appreciate nephrology input. Continue holding torsemide. No indication for urgent dialysis. Avoid nephrotoxic agents Held torsemide, now try resuming diuretics (5) CAD (coronary artery disease): (6) CHF (congestive heart failure): Plan: Last echocardiogram 12/04/2020 EF 30%, severe aortic stenosis, mild MR, LVH, mode rate hypokinesis Denies chest pain or shortness of breath Appears euvolemic on exam Now with acute on chronic CKD Daily weights, strict I's and O's Continue ASA, warfarin, hydralazine, Imdur, metoprolol Hold torsemide secondary to PAM Hold statin secondary to daptomycin (7) Chronic atrial fibrillation: Plan: Follows [facility] cardiology Continue metoprolol and warfarin Recently started on digoxin (8) Presence of combination internal cardiac defibrillator (ICD) and pacemaker: Plan: not MRI compatible (9) ARPIT (obstructive sleep apnea): Plan: bipap at HS with 2L O2 (10) Chronic anemia: Plan: h/h stable at 11.6 and 37.8 no s/sx of bleeding on vitron C likely 2/2 to chronic disease Plan: DVT ppx: continue warfarin Dispo: PCU FULL CODE PCP: Adams Pickett Admission and Anticipated Discharge Date Admission Date: December 30, 2020 Subjective Patient seen in follow-up of left lower extremity wound Currently sitting up in the chair, in no acute distress, no acute events overnight Denies any fevers, chills, chest pain, shortness of breath He is awake alert answering questions appropriately Seen by vascular and gen. surgery - no plan for surg.debridement or vasc. intervention at this time Wound nurse following closely - repeated wound cultx Nephrology following for PAM Review of Systems Review of Systems: All systems reviewed & are unremarkable except as noted in Subjective Physical Exam 2 Physical Exam: General: A&Ox3 HEENT: NCAT, MMM, EOMI, PERRL Neck: Supple, normal range of motion CVS: normal rate and rhythm Resp: b/l good breath sounds Abdomen: Soft, ND/NT, +BS Extremities: Left lower extremity with 3 x 4 cm wound x2 with mild erythema, minimal discharge Neuro: Alert oriented, answering questions appropriately, face symmetric,speech is clear, moves extremities Skin: warm and dry, except as above MSK: normal ROM, no joint swelling/erythema Results & Data Results & Data ([facility]) Vital Signs (Past 12 Hours) Vital Signs Temp Pulse Resp BP Pulse Ox 01/04/21 23:15 36.9 C 86 19 160/76 H 97 01/04/21 20:23 36.6 C 84 19 150/92 H 94 Medications Administered Current Inpatient Medications Acetaminophen (Acetaminophen 325 Mg Tab) 650 mg PO Q4H PRN PRN Reason: Pain or Fever Stop: 01/29/21 12:18 Hydrocodone Bitart/Acetaminophen (Hydrocodone/Acetamophen 5/325mg Tab) 1 tab PO Q4H PRN PRN Reason: Pain Stop: 01/13/21 12:28 Last Admin: 01/05/21 03:01 Dose: 1 tab Documented by: Albuterol (Albuterol Hfa 8 Gm Inhaler) 2 puffs INH Q4H PRN PRN Reason: Shortness Of Breath Or Wheezin Stop: 01/29/21 12:35 Albuterol (Albut/Ipratrop 3mg/0.5mg Neb 3 Ml Vial) 3 ml INH QID PRN PRN Reason: Shortness Of Breath Or Wheezin Stop: 01/29/21 12:18 Amlodipine Besylate (Amlodipine Besylate 5 Mg Tab) 2.5 mg PO QAM [facility] Stop: 01/30/21 08:59 Last Admin: 01/04/21 09:04 Dose: 2.5 mg Documented by: Ascorbic Acid (Ascorbic Acid 500 Mg Tab) 250 mg PO BID [facility] Stop: 01/29/21 20:59 Last Admin: 01/04/21 21:24 Dose: 250 mg Documented by: Aspirin (Aspirin 81 Mg Ectab) 81 mg PO QAM [facility] Stop: 01/30/21 08:59 Last Admin: 01/04/21 09:08 Dose: 81 mg Documented by: Baclofen (Baclofen 10 Mg Tab) 10 mg PO HS PRN PRN Reason: Cramps Stop: 01/29/21 12:18 Dextrose (Dextrose 50% 50 Ml Syringe) 25 - 50 ml IV UD PRN; Protocol PRN Reason: Hypoglycemia Protocol Stop: 01/29/21 12:18 Last Admin: 12/31/20 00:46 Dose: 25 ml Documented by: Digoxin (Digoxin 0.125 Mg Tab) 0.125 mg PO MoWeFr@1600 [facility] Stop: 01/30/21 15:59 Last Admin: 01/04/21 16:17 Dose: 0.125 mg Documented by: Ferrous Sulfate (Ferrous Sulfate 325 Mg Tab) 325 mg PO BID [facility] Stop: 01/29/21 20:59 Last Admin: 01/04/21 21:24 Dose: 325 mg Documented by: Fluticasone Propionate (Fluticasone Propionate Na Spr 16 Gm Btl) 2 sprays NA DAILY PRN PRN Reason: Nasal Congestion Stop: 01/29/21 12:18 Fluticasone/Vilanterol (Fluticasone/Vilanterol 100/25mcg 14 Puffs/Inhaler) 1 puffs INH QAM [facility] Stop: 01/30/21 08:59 Last Admin: 01/04/21 09:05 Dose: 1 puffs Documented by: Gabapentin (Gabapentin 100 Mg Cap) 100 mg PO TIDM [facility] Stop: 01/29/21 16:59 Last Admin: 01/04/21 16:18 Dose: 100 mg Documented by: Glucagon (Glucagon For Inj 1 Mg Vial) 1 mg SQ UD PRN; Protocol PRN Reason: Hypoglycemia Protocol Stop: 01/29/21 12:18 Glucose (Glucose 10 Tabs/Tube) 4 - 8 tabs PO UD PRN; Protocol PRN Reason: Hypoglycemia Protocol Stop: 01/29/21 12:18 Glucose (Glucose 40% Gel 15 Gm Tube) 15 - 30 gm PO UD PRN; Protocol PRN Reason: Hypoglycemia Protocol Stop: 01/29/21 12:18 Hydralazine HCl (Hydralazine Hcl 25 Mg Tab) 75 mg PO TID [facility] Stop: 01/29/21 13:59 Last Admin: 01/04/21 21:24 Dose: 75 mg Documented by: Daptomycin 350 mg/ Syringe 7 mls @ 3.5 mls/min IV Q48H [facility]; Protocol Stop: 01/06/21 12:59 Last Admin: 01/03/21 12:17 Dose: 3.5 mls/min Documented by: Piperacillin Sod/Tazobactam (Sod 4.5 gm/ Dextrose) 120 mls @ 30 mls/hr IV Q12H [facility]; Protocol Stop: 01/06/21 14:59 Last Admin: 01/05/21 05:27 Dose: 30 mls/hr Documented by: Bumetanide 2 mg/ Syringe 8 mls @ 4 mls/min IV BID@0900,1700 [facility] Stop: 02/03/21 17:01 Last Admin: 01/04/21 18:19 Dose: 4 mls/min Documented by: Insulin Aspart (Insulin Aspart 100 Units/Ml 3 Ml Pen) 0 units SC [facility] Stop: 01/31/21 16:29 Last Admin: 01/04/21 16:24 Dose: 26 units Documented by: Insulin Aspart (Insulin Aspart 100 Units/Ml 3 Ml Pen) 0 units SC [facility] Stop: 01/31/21 20:59 Last Admin: 01/04/21 21:15 Dose: Not Given Documented by: Insulin Glargine (Insulin Glargine Solostar 100 Units/Ml 3 Ml Pen) 15 units SC [facility] Stop: 02/03/21 08:59 Last Admin: 01/04/21 09:09 Dose: 15 units Documented by: Insulin Glargine (Insulin Glargine Solostar 100 Units/Ml 3 Ml Pen) 10 units SC [facility] Stop: 02/03/21 20:59 Last Admin: 01/04/21 21:32 Dose: 10 units Documented by: Isosorbide Dinitrate (Isosorbide Dinitrate 10 Mg Tab) 10 mg PO TID@0700,1200,1700 [facility] Stop: 01/29/21 16:59 Last Admin: 01/04/21 16:18 Dose: 10 mg Documented by: Lactobacillus Acidoph/Casei/Rhamnos (Advanced Probiotic 1250 Mg Capsule) 2 cap PO DAILY [facility] Stop: 02/01/21 16:14 Last Admin: 01/04/21 09:04 Dose: 2 cap Documented by: Metoprolol Succinate (Metoprolol Succ 50mg Ext Rel Tab) 100 mg PO BID [facility] Stop: 01/29/21 20:59 Last Admin: 01/04/21 21:25 Dose: 100 mg Documented by: Miscellaneous (Carbohydrates For Hypoglycemia ) 15 - 30 gm PO UD PRN PRN Reason: Hypoglycemia Protocol Stop: 01/29/21 12:18 Miscellaneous Information (Pharmacy Glycemic Mgmt Consult) 1 ea N/A UD PRN; Protocol PRN Reason: Consult Stop: 01/29/21 12:18 Miscellaneous Information (Piperacill/Tazobac Consult Active) 1 ea N/A UD PRN PRN Reason: Consult Stop: 01/29/21 12:22 Miscellaneous Information (Daptomycin Consult Active) 1 ea N/A UD PRN PRN Reason: Consult Stop: 01/29/21 12:42 Ondansetron HCl (Ondansetron Inj 2 Mg/Ml 2 Ml Vial) 4 mg IV Q6H PRN PRN Reason: Nausea Stop: 01/29/21 12:18 Pantoprazole Sodium (Pantoprazole 40 Mg Tab) 40 mg PO QAM [facility] Stop: 01/30/21 08:59 Last Admin: 01/04/21 09:05 Dose: 40 mg Documented by: Polyethylene Glycol (Polyethylene (Miralax) 17 Gm Pack) 17 gm PO DAILY PRN PRN Reason: Constipation Stop: 01/29/21 12:18 Vitamin D (Cholecalciferol 1,000 Units 25 Mcg Tab) 2,000 units PO QAM [facility] Stop: 01/30/21 08:59 Last Admin: 01/04/21 09:03 Dose: 2,000 units Documented by: Warfarin Sodium (Warfarin Sod 5 Mg Tab) 5 mg PO TuThSa@1600 [facility] Stop: 01/31/21 15:59 Last Admin: 01/01/21 16:35 Dose: 5 mg Documented by: Warfarin Sodium (Warfarin Sod 10 Mg Tab) 10 mg PO SuMoWeFr@1600 [facility] Stop: 01/29/21 15:59 Last Admin: 01/04/21 16:16 Dose: 10 mg Documented by: (1) Leg wound, left Encounter type: subsequent encounter Qualified Code(s): S81.802D - Unspecified open wound, left lower leg, subsequent encounter (2) CHF (congestive heart failure) Heart failure chronicity: unspecified Heart failure type: unspecified Qualified Code(s): I50.9 - Heart failure, unspecified
[2021-01-05 07:06] LABS: BUN Creatinine Ratio 13.8 (10-20); Calcium 8.9 mg/dl (8.5-10.1); Creatinine Clr Calc Pharmacy 19.2 ml/min; Est GFR (African American) 14.4 ml/min; Est GFR (Non-African American) 12.4 ml/min; Potassium 3.5 mmol/L (3.5-5.1)
[2021-01-05] MEDS: INSULIN ASPART 100 UNITS/ML 3 ML PEN SC SCH ×4 (09:48→20:57)
[2021-01-05] MEDS: ISOSORBIDE DINITRATE 10 MG TAB PO SCH ×3 (09:49→17:32)
[2021-01-05] MEDS: GABAPENTIN 100 MG CAP PO SCH ×3 (09:49→17:31)
[2021-01-05] MEDS: amLODIPine BESYLATE 5 MG TAB PO SCH (09:50)
[2021-01-05] MEDS: ASPIRIN 81 MG ECTAB PO SCH (09:51)
[2021-01-05] MEDS: ASCORBIC ACID 500 MG TAB PO SCH ×2 (09:51→21:15)
[2021-01-05] MEDS: FLUTICASONE/VILANTEROL 100/25MCG 14 PUFFS/INHALER INH SCH (09:52)
[2021-01-05] MEDS: BUMETANIDE 2 MG in SYRINGE 0 ML IV SCH ×2 (09:52→17:31)
[2021-01-05] MEDS: METOPROLOL SUCC 50MG EXT REL TAB PO SCH ×2 (09:52→21:16)
[2021-01-05] MEDS: CHOLECALCIFEROL 1,000 UNITS 25 MCG TAB PO SCH (09:52)
[2021-01-05] MEDS: PANTOprazole 40 MG TAB PO SCH (09:53)
[2021-01-05] MEDS: ADVANCED PROBIOTIC 1250 MG CAPSULE PO SCH (09:53)
[2021-01-05] MEDS: FERROUS SULFATE 325 MG TAB PO SCH ×2 (09:53→21:16)
[2021-01-05] MEDS: hydrALAZINE HCL 25 MG TAB PO SCH ×3 (09:53→21:16)
[2021-01-05] MEDS: INSULIN GLARGINE SOLOSTAR 100 UNITS/ML 3 ML PEN SC SCH ×2 (09:54→21:16)
--- NOTE | 2021-01-05 10:16 | Pharmacy Report ---
Pharmacy Glycemic Short Note 2 - Date of Service January 05, 2021 - Glycemic Short BSG Results (Last 24 hours): 01/04/21 01/04/21 01/04/21 11:43 16:07 20:51 Glucose POC Glucose 214 H 198 H 108 H 01/05/21 01/05/21 05:32 07:17 Glucose 67 L POC Glucose 83 OUTPATIENT ANTIDIABETIC REGIMEN: * Lantus 30 units SQ BID * Lispro 5 units breakfast, 25 units lunch and dinner, 15 units with carb heavy bedtime snack ASSESSMENT: 01/05 * Pt has received 97 units of insulin over the past 24hrs * 25 units of basal with Lantus * 72 units of bolus with NovoLog * BSGs 553-272-259-108-67/83 mg/dl * AM fasting LOW at 67mg/dl. Will decrease basal insulin dosing slightly to prevent repeat LOW tomorrow * Post-prandial BSGs remain elevated. Will tighten CR. 01/04 * 86 units SQ insulin given over last 24 hrs while tolerating a diet * Fasting BSG 147 this AM with 20 units Lantus on board and 4 units correctional insulin last night - will titrate up given current trend * Post-prandial BSG again elevated despite increase in prandial doses yesterday - will continue to up-titrate as well 01/03 * 94 units SQ insulin given over last 24 hrs while tolerating a diet * Fasting BSG 133 this AM w/ 20 units Lantus on board and only 2 units correctional insulin last night - will continue the same * 2 of 3 post-prandial BSGs elevated yesterday. Pt is VERY carb sensitive. Will continue to increase prandial insulin doses. 01/02 * 87 units SQ insulin given over last 24 hrs while tolerating a diet * Fasting BSG 65-70 this AM w/ 25 units basal on board, and after receiving 5 units correctional insulin at HS. Will decrease basal insulin and HS Novolog dose. * Post-prandial BSGs elevated 3 of 3 yesterday, however lunchtime BSG at goal this AM with new carb ratio. Will continue the same for now. 01/01 * Patient received 117 units SQ insulin over last 24 hours while tolerating a diet * Fasting BSG 85-101 this AM w/ 50 units basal on board. Of note, pt did develop mild hypoglycemia overnight - likely due to excess basal but HS Novolog dose may have contributed as well. Based upon prior admission data, a reduced basal dose of 25-35 units per day may be required * Post-prandial BSGs elevated yesterday - will adjust carb ratio this afternoon to allow for greater prandial doses 12/31 * Patient started on insulin infusion last evening, transitioned off around midnight. BSGs this morning 123 mg/dL 162 mg/dL * Lunch BSG was taken after patient had already ate, did cover for carbs but no correction, plan to repeat BSG at 1400 * Will continue 25 units of lantus BID for now, will continue current novolog parameters, tighten if BSG significantly elevated 12/30 * 65 yo male with extensive PMH, including CKD stage IV, COPD, CVD, AFib, Type 2 DM, admitted with encephalopathy, stroke like symptoms, on IV antibiotics. * Patient managed on basal bolus insulin at home, hyperglycemic on arrival, anion gap 9, received 10 units IV insulin in ER. * Blood sugar better 450 --> 282mg/dl, will use basal bolus insulin at this time and titrate to goal blood sugar. PLAN FOR INPATIENT GLYCEMIC CONTROL: * Basal insulin * Lantus 12 units SQ BID * Bolus insulin - increase prandial * NovoLog per scale ACHS or Q6hrs while NPO * Goal Range: Low 110 mg/dL - High 140 mg/dL (140-180 mg/dL at HS) * Correction Factor: 10 mg/dL/unit prior to meals; 30 mg/dL/unit at HS * Nutritional / Prandial insulin per carb ratio of 1 unit per 1.5 grams CHO consumed with meals, 1 unit per 10 grams CHO consumed HS PLAN FOR DISCHARGE: * see manager integration note
[2021-01-05] MEDS: DAPTOmycin 350 MG in SYRINGE 0 ML IV SCH (12:59)
--- NOTE | 2021-01-05 15:18 | Nephrology Progress Note ---
Date of Service January 05, 2021 Assessment & Plan Admission and Anticipated Discharge Date Admission Date: December 30, 2020 Subjective Assessment & Plan (1) Acute on chronic renal failure: Plan: presenting creat may simply represent CKD progression--more likely. ? ATN from antibiotics/wounds versus emerging HF after being off of diuretics. Does not feel making more urine with iv bumex. But feels less SOB. Hard to asesss fluid status. Will do CXR x 1 view to help us. Continue bumex 2 mg IV bid--may adjust depending on CXR finding--likely need to go up --daily bmp -cont to avoid nephrotoxins -cont 1.5L fluid limit and <2 gm daily Na diet -no indication for urgent dialysis but I have discussed with him that if his numbers worsen significantly he may need it this admission Creat in the range of 4.5 to 4.7 for 3 days now. Subjective denies sob . reports no extra urine with iv bumex. Bt not sure about measurement. Review of Systems Review of Systems: All systems reviewed & are unremarkable except as noted in Subjective Physical Exam Constitutional: well developed, well nourished, + obese and cooperative; no acute distress Eyes: EOM intact bilaterally ENMT: Ears: no external ear abnormality Nose: no external nose abnormality Mouth: + dry oral mucous membranes Neck: no nuchal rigidity Respiratory: normal respiratory effort Auscultation: + diminished lung sounds Cardiovascular: Rate/Rhythm: regular rate and regular rhythm Heart Sounds: + murmur Extremities: + edema (1+ LLE > RLE) Gastrointestinal (Abdomen): Inspection/Auscultation: normal bowel sounds Percussion/Palpation: abdomen soft; abdomen nontender Musculoskeletal: Extremities: strength 5/5 throughout Skin: no rashes, warm and dry skin ulcers LE as prev Psychiatric: Orientation: alert and oriented x 3 Results & Data ([facility]) Vital Signs (Past 12 Hours) Vital Signs Temp Pulse Resp BP Pulse Ox 01/05/21 11:11 36.7 C 69 19 160/83 H 95 01/05/21 07:34 62 20 160/90 H 99
--- NOTE | 2021-01-05 16:46 | XRay Report ---
XR chest 1V portable CLINICAL HISTORY: CHF COMPARISON STUDY: Chest CT September 17, 2020. Chest radiograph December 30, 2020. FINDINGS: A biventricular pacer/AICD is in place. There is no pneumothorax or pleural effusion. Cardi omegaly is unchanged. There is no evidence for pulmonary edema. No consolidation is identified to sug gest pneumonia. IMPRESSION: No acute cardiopulmonary findings. Cardiomegaly. ACT 112: Negative or not required by law. Electronically signed by: Balwinder Juarez M.D. 01/05/2021 4:44 PM
--- NOTE | 2021-01-05 16:50 | Hospitalist Progress Note ---
Date of Service January 05, 2021 Assessment & Plan (1) Stroke-like symptoms: Plan: Patient is a 65 yr male with H/O Insulin-dependent T2 DM, chronic atrial fibrillation anticoagulated on warfarin, nonischemic cardiomyopathy with right greater than left biventricular systolic and diastolic heart failure, chronic left bundle rekha block status post biventricular pacemaker defibrillator implanted on June 2017, severe aortic stenosis, CAD, severe central and obs tructive sleep apnea treated with BiPAP, history of CVA while off Coumadin, CKD stage IV, COPD, tobacco abuse with chewing tobacco, HTN, HLD, history of Covid who presents to ED secondary to increased confusion, word finding difficulty and right hand weakness for 1 to 2 days. Strokelike symptoms Likely metabolic/Toxic encephalopathy -CT Head:No significant change compared to the prior study. No acute intracranial abnormality. Blood/Wound Cx negative Appreciate Neurology input Mental status back to baseline (2) Leg wound, left: Plan: Non healing Left lower extremity wound Previously had been following with [place] [facility] and patient unhappy with results. US on 12/14, negative for DVT, INR therapeutic -Arterial Doppler:No mariah stenosis. Biphasic and monophasic waveforms distally may reflect atherosclerotic disease. Appreciate wound care in put. ESR 51, CRP 0.97 On Zosyn/daptomycin Blood and wound cultures Negative Consulted ID for Input As per Prior hospitalist: Per wound care - recommend vascular surgery is consulted - Dg.: PAD - Pt with mild/moderate PAD and is asymptomatic. Pt not candidate for endovascular intervention secondary to severe CKD. No indications for vascular surgical intervention at this time. Recommend continue abx per medicine/wound care, and eval of wounds for debridement by Wound Care provider or General Surgery. -General surgery consulted - no plan for surgical debridement at this time Debridement per wound care, outpt wound care appointment not until end december - may need to be seen by surgery as outpt earlier (3) Hyperglycemia due to diabetes mellitus: Plan: Last A1c 9.0 10/12/2020, now 9.9 Lantus/NovoLog per protocol Consult glycemic pharmacy, appreciate Input (4) CKD (chronic kidney disease) stage 4, GFR 15-29 ml/min: Plan: PAM on CKD IV Baseline creatinine 2.5-2.8. Cr: Now Cr elevated above 4 A/C CKD -4.5 Appreciate nephrology Input on IV Bumex Monitor renal function (5) CAD (coronary artery disease): (6) CHF (congestive heart failure): Plan: Last echocardiogram 12/04/2020 EF 30%, severe aortic stenosis, mild MR, LVH, moderate hypokinesis Monitor Daily weights, strict I's and O's Continue ASA, warfarin, hydralazine, Imdur, metoprolol Hold statin while on daptomycin (7) Chronic atrial fibrillation: Plan: Follows [facility]ology Continue metoprolol and warfarin Recently started on digoxin Monitor INR:2.0 (8) Presence of combination internal cardiac defibrillator (ICD) and pacemaker: Plan: Not MRI compatible (9) ARPIT (obstructive sleep apnea): Plan: BiPAP at HS with 2L O2 (10) Chronic anemia: Plan: no bleeding on vitron C likely 2/2 to chronic disease Monitor Plan: DVT Px: Warfarin Code Status FULL CODE Admission and Anticipated Discharge Date Admission Date: December 30, 2020 Subjective Patient is seen and examined at bedside States having left leg pain No other complaints Denies chest pain, dyspnea, dizziness Review of Systems Review of Systems: All systems reviewed & are unremarkable except as noted in Subjective Physical Exam Physical Exam: Physical Exam: Vitals signs as noted above General Appearance:Morbidly Obese, no apparent distress Head: normocephalic, Atraumatic Eyes: normal inspection, EOMI Neck: supple, Trachea midline Respiratory/Chest: Normal breath sounds, CTA, No accessory muscle use Cardiovascular: S1, S2, + murmur Abdomen/GI:Soft, Non tender, Bowel sounds present Extremities/Musculoskeletal:normal inspection, B/L LE edema, Wounds in dressing Neurologic/Psych:AAOX3, grossly no focal neurological deficits Skin: normal color, warm Results & Data Results & Data ([facility]) Vital Signs (Past 12 Hours) Vital Signs Temp Pulse Resp BP Pulse Ox 01/05/21 15:27 36.9 C 89 20 181/92 H 97 01/05/21 11:11 36.7 C 69 19 160/83 H 95 01/05/21 07:34 62 20 160/90 H 99 Laboratory Results [facility] 01/05/21 05:32 Sodium 142 Potassium 3.5 Chloride 107 Carbon Dioxide 26 BUN 63 H Creatinine 4.54 H* Glucose 67 L Calcium 8.9 (1) CHF (congestive heart failure) Heart failure chronicity: unspecified Heart failure type: unspecified Qualified Code(s): I50.9 - Heart failure, unspecified (2) Leg wound, left Encounter type: subsequent encounter Qualified Code(s): S81.802D - Unspecified open wound, left lower leg, subsequent encounter
[2021-01-05] MEDS: WARFARIN SOD 5 MG TAB PO SCH (17:29)
[2021-01-06] MEDS: PIPERACILLIN/TAZOBACTAM 4.5 GM in DEXTROSE 5% 100 ML IV SCH ×3 (03:33→21:42)
[2021-01-06] MEDS: HYDROCODONE/ACETAMOPHEN 5/325MG TAB PO PRN ×3 (03:36→21:43)
[2021-01-06 06:39] LABS: INR 1.7 (0.9-1.1); Prothrombin Time 16.2 Seconds (9.0-12.0)
[2021-01-06 07:11] LABS: BUN Creatinine Ratio 13.9 (10-20); Est GFR (Non-African American) 14.7 ml/min; Potassium 3.3 mmol/L (3.5-5.1)
[2021-01-06] MEDS ORDERED: POTASSIUM CHLORIDE 10 MEQ TABCR PO ONE (08:32)
[2021-01-06] MEDS: ISOSORBIDE DINITRATE 10 MG TAB PO SCH ×3 (08:47→16:59)
[2021-01-06] MEDS: hydrALAZINE HCL 25 MG TAB PO SCH ×2 (08:47→14:05)
[2021-01-06] MEDS: GABAPENTIN 100 MG CAP PO SCH ×3 (08:47→17:00)
[2021-01-06] MEDS: CHOLECALCIFEROL 1,000 UNITS 25 MCG TAB PO SCH (08:47)
[2021-01-06] MEDS: BUMETANIDE 2 MG in SYRINGE 0 ML IV SCH ×2 (08:48→16:59)
[2021-01-06] MEDS: METOPROLOL SUCC 50MG EXT REL TAB PO SCH ×2 (08:48→21:41)
[2021-01-06] MEDS: FERROUS SULFATE 325 MG TAB PO SCH ×2 (08:48→21:40)
[2021-01-06] MEDS: PANTOprazole 40 MG TAB PO SCH (08:49)
[2021-01-06] MEDS: ASPIRIN 81 MG ECTAB PO SCH (08:49)
[2021-01-06] MEDS: ASCORBIC ACID 500 MG TAB PO SCH ×2 (08:49→21:40)
[2021-01-06] MEDS: ADVANCED PROBIOTIC 1250 MG CAPSULE PO SCH (08:49)
[2021-01-06] MEDS: amLODIPine BESYLATE 5 MG TAB PO SCH (08:49)
[2021-01-06] MEDS: FLUTICASONE/VILANTEROL 100/25MCG 14 PUFFS/INHALER INH SCH (08:50)
[2021-01-06] MEDS: INSULIN GLARGINE SOLOSTAR 100 UNITS/ML 3 ML PEN SC SCH ×2 (08:51→21:41)
[2021-01-06] MEDS: INSULIN ASPART 100 UNITS/ML 3 ML PEN SC SCH ×4 (08:52→22:47)
[2021-01-06] MEDS: HEPARIN SOD 5,000 UNIT/0.5 ML VIAL SQ SCH ×2 (14:05→21:42)
--- NOTE | 2021-01-06 15:58 | Nephrology Progress Note ---
Date of Service January 06, 2021 Assessment & Plan Admission and Anticipated Discharge Date Admission Date: December 30, 2020 Subjective Assessment & Plan (1) Acute on chronic renal failure: Plan: presenting creat may simply represent CKD progression--more likely. ? ATN from antibiotics/wounds versus emerging HF after being off of diuretics. feels less SOB. No e/o Pulm edema on CXR Continue bumex 2 mg IV bid --daily bmp -cont to avoid nephrotoxins -cont 1.5L fluid limit and <2 gm daily Na diet -no indication for urgent dialysis but I have discussed with him that if his numbers worsen significantly he may need it this admission Creat and BUN down a bit today. K is dropping despite 10 bid. raise to 30 bid Subjective denies sob . No new issues. making urine Review of Systems Review of Systems: All systems reviewed & are unremarkable except as noted in Subjective Physical Exam Constitutional: well developed, well nourished, + obese and cooperative; no acute distress Eyes: EOM intact bilaterally ENMT: Ears: no external ear abnormality Nose: no external nose abnormality Mouth: + dry oral mucous membranes Neck: no nuchal rigidity Respiratory: normal respiratory effort Auscultation: + diminished lung sounds Cardiovascular: Rate/Rhythm: regular rate and regular rhythm Heart Sounds: + murmur Extremities: + edema (1+ LLE > RLE) Gastrointestinal (Abdomen): Inspection/Auscultation: normal bowel sounds Percussion/Palpation: abdomen soft; abdomen nontender Musculoskeletal: Extremities: strength 5/5 throughout Skin: no rashes, warm and dry skin ulcers LE as prev Psychiatric: Orientation: alert and oriented x 3 Results & Data ([facility]) Vital Signs (Past 12 Hours) Vital Signs Temp Pulse Pulse Resp BP BP Pulse Ox 01/06/21 11:08 36.5 C 65 18 178/86 H 96 01/06/21 07:20 36.7 C 62 20 165/96 H 97
--- NOTE | 2021-01-06 16:35 | Hospitalist Progress Note ---
Date of Service January 06, 2021 Assessment & Plan (1) Stroke-like symptoms: Plan: Patient is a 65 yr male with H/O Insulin-dependent T2 DM, chronic atrial fibrillation anticoagulated on warfarin, nonischemic cardiomyopathy with right greater than left biventricular systolic and diastolic heart failure, chronic left bundle rekha block status post biventricular pacemaker defibrillator implanted on June 2017, severe aortic stenosis, CAD, severe central and obs tructive sleep apnea treated with BiPAP, history of CVA while off Coumadin, CKD stage IV, COPD, tobacco abuse with chewing tobacco, HTN, HLD, history of Covid who presents to ED secondary to increased confusion, word finding difficulty and right hand weakness for 1 to 2 days. Stroke like symptoms Likely metabolic/Toxic encephalopathy -CT Head:No significant change compared to the prior study. No acute intracranial abnormality. Blood/Wound Cx negative Appreciate Neurology input Mental status back to baseline Monitor (2) Leg wound, left: Plan: Non healing Left lower extremity wound Previously had been following with [place] [facility] and patient unhappy with results. US on 12/14, negative for DVT, INR therapeutic -Arterial Doppler:No mariah stenosis. Biphasic and monophasic waveforms distally may reflect atherosclerotic disease. Appreciate wound care in put. ESR 51, CRP 0.97 On Zosyn/daptomycin Blood and wound cultures Negative Consulted ID for Input As per Prior hospitalist: Per wound care - recommend vascular surgery is consulted - Dg.: PAD - Pt with mild/moderate PAD and is asymptomatic. Pt not candidate for endovascular intervention secondary to severe CKD. No indications for vascular surgical intervention at this time. Recommend continue abx per medicine/wound care, and eval of wounds for debridement by Wound Care provider or General Surgery. -General surgery consulted - no plan for surgical debridement at this time Debridement per wound care, outpt wound care appointment not until end december - may need to be seen by surgery as outpt earlier -Await ID Input (3) Hyperglycemia due to diabetes mellitus: Plan: Last A1c 9.0 10/12/2020, now 9.9 Lantus/NovoLog per protocol Consult glycemic pharmacy, appreciate Input (4) CKD (chronic kidney disease) stage 4, GFR 15-29 ml/min: Plan: PAM on CKD IV Baseline creatinine 2.5-2.8. Cr: 3.96 Appreciate nephrology Input on IV Bumex Monitor renal function Avoid nephrotoxic agents as able Hypokalemia Replace electrolytes as needed Monitor (5) CAD (coronary artery disease): (6) CHF (congestive heart failure): Plan: Last echocardiogram 12/04/2020 EF 30%, severe aortic stenosis, mild MR, LVH, moderate hypokinesis Monitor Daily weights, strict I's and O's Continue ASA, warfarin, hydralazine, Imdur, metoprolol Hold statin while on daptomycin Continue IV diuresis (7) Chronic atrial fibrillation: Plan: [facility] Continue metoprolol Recently started on digoxin Monitor INR:2.0>1.7 Subtherapeutic INR Heparin SQ while INR is subtherapeutic Continue Coumadin (8) Presence of combination internal cardiac defibrillator (ICD) and pacemaker: Plan: Not MRI compatible Hypertension Amlodipine increased to 5 mg daily Continue metoprolol, Isosorbide Hydralazine increased to 100 mg 3 times daily Appreciate Nephrology input Monitor BP (9) ARPIT (obstructive sleep apnea): Plan: BiPAP at HS with 2L O2 (10) Chronic anemia: Plan: no bleeding on vitron C likely 2/2 to chronic disease Monitor Plan: DVT Px: Warfarin Heparin SQ until INR in therapeutic range Code Status FULL CODE Admission and Anticipated Discharge Date Admission Date: December 30, 2020 Subjective Patient is seen and examined at bedside left leg pain is controlled BP elevated today No new complaints Denies chest pain, dyspnea, dizziness ID eval pending Review of Systems Review of Systems: All systems reviewed & are unremarkable except as noted in Subjective Physical Exam Physical Exam: Physical Exam: Vitals signs as noted above General Appearance:Morbidly Obese, no apparent distress Head: normocephalic, Atraumatic Eyes: normal inspection, EOMI Neck: supple, Trachea midline Respiratory/Chest: Normal breath sounds, CTA, No accessory muscle use Cardiovascular: S1, S2, + murmur Abdomen/GI:Soft, Non tender, Bowel sounds present Extremities/Musculoskeletal:normal inspection, B/L LE edema, Wounds in dressing Neurologic/Psych:AAOX3, grossly no focal neurological deficits Skin: normal color, warm Results & Data Results & Data ([facility]) Vital Signs (Past 12 Hours) Vital Signs Temp Pulse Pulse Resp BP BP Pulse Ox 01/06/21 11:08 36.5 C 65 18 178/86 H 96 01/06/21 07:20 36.7 C 62 20 165/96 H 97 Laboratory Results [facility] 01/06/21 05:42 Sodium 142 Potassium 3.3 L Chloride 107 Carbon Dioxide 27 BUN 55 H Creatinine 3.96 H D Glucose 77 Calcium 9.0 (1) Leg wound, left Encounter type: subsequent encounter Qualified Code(s): S81.802D - Unspecified open wound, left lower leg, subsequent encounter (2) CHF (congestive heart failure) Heart failure chronicity: unspecified Heart failure type: unspecified Qualified Code(s): I50.9 - Heart failure, unspecified
[2021-01-06] MEDS: WARFARIN SOD 10 MG TAB PO SCH (17:00)
[2021-01-06] MEDS ORDERED: POTASSIUM CHLORIDE 10 MEQ TABCR PO SCH (21:00)
[2021-01-06] MEDS: hydrALAZINE TAB 50 MG TAB PO SCH (21:41)
[2021-01-06] MEDS: POTASSIUM CHLORIDE 10 MEQ TABCR PO SCH (21:42)
[2021-01-07] MEDS: HYDROCODONE/ACETAMOPHEN 5/325MG TAB PO PRN ×3 (02:23→16:37)
[2021-01-07 07:01] LABS: Hematocrit (blood only) 33.4 % (42-52); Hemoglobin 10.3 g/dL (14.0-18.0); Mean Corpuscular Hgb Conc 30.8 g/dL (32-36); Mean Corpuscular Volume 87.4 fL (80-100); Mean Platelet Volume 9.8 fL (7.4-10.4); Platelet Count 139 K/uL (130-400); RDW Coefficient of Variation 15.5 % (11.5-14.5); RDW Standard Deviation 50.2 fL (36.4-46.3); Red Blood Count 3.82 M/uL (4.7-6.1); White Blood Count 5.15 K/uL (4.8-10.8)
[2021-01-07] MEDS: PIPERACILLIN/TAZOBACTAM 4.5 GM in DEXTROSE 5% 100 ML IV SCH (07:04)
[2021-01-07] MEDS: HEPARIN SOD 5,000 UNIT/0.5 ML VIAL SQ SCH ×3 (07:04→21:02)
[2021-01-07 07:14] LABS: INR 1.8 (0.9-1.1); Prothrombin Time 17.2 Seconds (9.0-12.0)
[2021-01-07 07:35] LABS: BUN Creatinine Ratio 13.6 (10-20); Calcium 9.3 mg/dl (8.5-10.1); Creatinine Clr Calc Pharmacy 22.1 ml/min; Est GFR (African American) 17.4 ml/min; Magnesium 2.6 mg/dl (1.8-2.4); Potassium 3.9 mmol/L (3.5-5.1)
[2021-01-07] MEDS: hydrALAZINE TAB 50 MG TAB PO SCH ×3 (07:59→20:55)
[2021-01-07] MEDS: BUMETANIDE 2 MG in SYRINGE 0 ML IV SCH (08:00)
[2021-01-07] MEDS: ADVANCED PROBIOTIC 1250 MG CAPSULE PO SCH (08:00)
[2021-01-07] MEDS: METOPROLOL SUCC 50MG EXT REL TAB PO SCH ×2 (08:00→20:57)
[2021-01-07] MEDS: ASPIRIN 81 MG ECTAB PO SCH (08:00)
[2021-01-07] MEDS: FERROUS SULFATE 325 MG TAB PO SCH ×2 (08:01→20:57)
[2021-01-07] MEDS: ASCORBIC ACID 500 MG TAB PO SCH ×2 (08:01→20:56)
[2021-01-07] MEDS: PANTOprazole 40 MG TAB PO SCH (08:01)
[2021-01-07] MEDS: CHOLECALCIFEROL 1,000 UNITS 25 MCG TAB PO SCH (08:01)
[2021-01-07] MEDS: GABAPENTIN 100 MG CAP PO SCH ×3 (08:01→16:34)
--- NOTE | 2021-01-07 08:01 | Hospitalist Progress Note ---
Date of Service January 07, 2021 Assessment & Plan (1) Stroke-like symptoms: Plan: Patient is a 65 yr male with H/O Insulin-dependent T2 DM, chronic atrial fibrillation anticoagulated on warfarin, nonischemic cardiomyopathy with right greater than left biventricular systolic and diastolic heart failure, chronic left bundle rekha block status post biventricular pacemaker defibrillator implanted on June 2017, severe aortic stenosis, CAD, severe central and obs tructive sleep apnea treated with BiPAP, history of CVA while off Coumadin, CKD stage IV, COPD, tobacco abuse with chewing tobacco, HTN, HLD, history of Covid who presents to ED secondary to increased confusion, word finding difficulty and right hand weakness for 1 to 2 days. Stroke like symptoms Likely metabolic/Toxic encephalopathy -CT Head:No significant change compared to the prior study. No acute intracranial abnormality. Blood/Wound Cx negative Appreciate Neurology input Mental status back to baseline Monitor (2) Leg wound, left: Plan: Non healing Left lower extremity wound Previously had been following with [place] [facility] and patient unhappy with results. US on 12/14, negative for DVT, INR therapeutic -Arterial Doppler:No mariah stenosis. Biphasic and monophasic waveforms distally may reflect atherosclerotic disease. Appreciate wound care in put. ESR 51, CRP 0.97 On Zosyn/daptomycin Blood and wound cultures Negative Consulted ID for Input As per Prior hospitalist: Per wound care - recommend vascular surgery is consulted - Dg.: PAD - Pt with mild/moderate PAD and is asymptomatic. Pt not candidate for endovascular intervention secondary to severe CKD. No indications for vascular surgical intervention at this time. Recommend continue abx per medicine/wound care, and eval of wounds for debridement by Wound Care provider or General Surgery. -General surgery consulted - no plan for surgical debridement at this time Debridement per wound care, outpt wound care appointment not until end december - may need to be seen by surgery as outpt earlier 01/07 - ID consulted -recommend to stop IV antibiotics and ask for skin biopsy General surgery contacted about skin biopsy, plan for skin biopsy and debridement tomorrow (01/08) (3) Hyperglycemia due to diabetes mellitus: Plan: Last A1c 9.0 10/12/2020, now 9.9 Lantus/NovoLog per protocol Consult glycemic pharmacy, appreciate Input (4) CKD (chronic kidney disease) stage 4, GFR 15-29 ml/min: Plan: PAM on CKD IV Baseline creatinine 2.5-2.8. Cr above 4 during this admission Cr: now mildly decreased ~3.9 Appreciate nephrology Input on IV Bumex will switch to PO torsemide now Monitor renal function Avoid nephrotoxic agents as able Hypokalemia Replace electrolytes as needed Monitor (5) CAD (coronary artery disease): (6) CHF (congestive heart failure): Plan: Last echocardiogram 12/04/2020 EF 30%, severe aortic stenosis, mild MR, LVH, moderate hypokinesis Monitor Daily weights, strict I's and O's Continue ASA, warfarin, hydralazine, Imdur, metoprolol Hold statin while on daptomycin Continue IV diuresis (7) Chronic atrial fibrillation: Plan: Follows [facility] Continue metoprolol Recently started on digoxin Monitor INR:2.0>1.7 Subtherapeutic INR Heparin SQ while INR is subtherapeutic Continue Coumadin (8) Presence of combination internal cardiac defibrillator (ICD) and pacemaker: Plan: Not MRI compatible Hypertension Amlodipine increased to 5 mg daily Continue metoprolol, Isosorbide Hydralazine increased to 100 mg 3 times daily Appreciate Nephrology input Monitor BP (9) ARPIT (obstructive sleep apnea): Plan: BiPAP at HS with 2L O2 (10) Chronic anemia: Plan: no bleeding on vitron C likely 2/2 to chronic disease Monitor Plan: DVT Px: Warfarin Heparin SQ until INR in therapeutic range Code Status FULL CODE Admission and Anticipated Discharge Date Admission Date: December 30, 2020 Subjective Patient seen in follow-up of left lower extremity wound Currently sitting up in the chair, in no acute distress, no acute events overnight Denies any fevers, chills, chest pain, shortness of breath He is awake alert answering questions appropriately ID consulted -recommend to start IV antibiotics and ask for skin biopsy General surgery contacted, plan for skin biopsy and debridement tomorrow Wound nurse following closely Nephrology following for PAM Review of Systems Review of Systems: All systems reviewed & are unremarkable except as noted in Subjective Physical Exam Physical Exam: General: A&Ox3 HEENT: NCAT, MMM, EOMI, PERRL Neck: Supple, normal range of motion CVS: normal rate and rhythm Resp: b/l good breath sounds Abdomen: Soft, ND/NT, +BS Extremities: Left lower extremity with 3 x 4 cm wound x2 with mild erythema, minimal discharge - prior to debridement (01/08) Neuro: Alert oriented, answering questions appropriately, face symmetric,speech is clear, moves extremities Skin: warm and dry, except as above MSK: normal ROM, no joint swelling/erythema Results & Data Results & Data ([facility]) Vital Signs (Past 12 Hours) Vital Signs Temp Pulse Pulse Resp BP Pulse Ox 01/07/21 06:25 37.1 C 60 21 121/73 99 01/07/21 04:36 36.8 C 70 122/72 97 01/06/21 23:13 36.9 C 70 128/72 98 Laboratory Results 01/07/21 01/07/21 01/07/21 Range/Units 07:15 06:13 06:13 WBC (4.8-10.8) K/uL RBC (4.7-6.1) M/uL Hgb (14.0-18.0) g/dL Hct (42-52) % MCV (80-100) fL MCH (25-34) pg MCHC (32-36) g/dL RDW Std Deviation (36.4-46.3) fL RDW Coeff of Joey (11.5-14.5) % Plt Count (130-400) K/uL MPV (7.4-10.4) fL PT 17.2 H (9.0-12.0) Seconds INR 1.8 H (0.9-1.1) Sodium 143 (136-145) mmol/L Potassium 3.9 D (3.5-5.1) mmol/L Chloride 108 H (98-107) mmol/L Carbon Dioxide 25 (21-32) mmol/L Anion Gap 10.0 (3-11) BUN 53 H (7-18) mg/dl Creatinine 3.89 H (0.6-1.4) mg/dl Est Cr Clr Drug Dosing 22.1 ml/min Est GFR ( Amer) 17.4 ml/min Est GFR (Non-Af Amer) 15.0 ml/min BUN/Creatinine Ratio 13.6 (10-20) Glucose 114 H (70-99) mg/dl POC Glucose 112 H (70-99) mg/dl Calcium 9.3 (8.5-10.1) mg/dl Magnesium 2.6 H (1.8-2.4) mg/dl 01/07/21 01/06/21 01/06/21 Range/Units 06:13 20:47 16:06 WBC 5.15 (4.8-10.8) K/uL RBC 3.82 L (4.7-6.1) M/uL Hgb 10.3 L (14.0-18.0) g/dL Hct 33.4 L (42-52) % MCV 87.4 (80-100) fL MCH 27.0 (25-34) pg MCHC 30.8 L (32-36) g/dL RDW Std Deviation 50.2 H (36.4-46.3) fL RDW Coeff of Joey 15.5 H (11.5-14.5) % Plt Count 139 (130-400) K/uL MPV 9.8 (7.4-10.4) fL PT (9.0-12.0) Seconds INR (0.9-1.1) Sodium (136-145) mmol/L Potassium (3.5-5.1) mmol/L Chloride (98-107) mmol/L Carbon Dioxide (21-32) mmol/L Anion Gap (3-11) BUN (7-18) mg/dl Creatinine (0.6-1.4) mg/dl Est Cr Clr Drug Dosing ml/min Est GFR ( Amer) ml/min Est GFR (Non-Af Amer) ml/min BUN/Creatinine Ratio (10-20) Glucose (70-99) mg/dl POC Glucose 87 214 H (70-99) mg/dl Calcium (8.5-10.1) mg/dl Magnesium (1.8-2.4) mg/dl 01/06/21 01/06/21 Range/Units 14:00 11:31 WBC (4.8-10.8) K/uL RBC (4.7-6.1) M/uL Hgb (14.0-18.0) g/dL Hct (42-52) % MCV (80-100) fL MCH (25-34) pg MCHC (32-36) g/dL RDW Std Deviation (36.4-46.3) fL RDW Coeff of Jeoy (11.5-14.5) % Plt Count (130-400) K/uL MPV (7.4-10.4) fL PT (9.0-12.0) Seconds INR (0.9-1.1) Sodium (136-145) mmol/L Potassium (3.5-5.1) mmol/L Chloride (98-107) mmol/L Carbon Dioxide (21-32) mmol/L Anion Gap (3-11) BUN (7-18) mg/dl Creatinine (0.6-1.4) mg/dl Est Cr Clr Drug Dosing ml/min Est GFR ( Amer) ml/min Est GFR (Non-Af Amer) ml/min BUN/Creatinine Ratio (10-20) Glucose (70-99) mg/dl POC Glucose 245 H 224 H (70-99) mg/dl Calcium (8.5-10.1) mg/dl Magnesium (1.8-2.4) mg/dl Medications Administered Current Inpatient Medications Acetaminophen (Acetaminophen 325 Mg Tab) 650 mg PO Q4H PRN PRN Reason: Pain or Fever Stop: 01/29/21 12:18 Hydrocodone Bitart/Acetaminophen (Hydrocodone/Acetamophen 5/325mg Tab) 1 tab PO Q4H PRN PRN Reason: Pain Stop: 01/13/21 12:28 Last Admin: 01/07/21 02:23 Dose: 1 tab Documented by: Albuterol (Albuterol Hfa 8 Gm Inhaler) 2 puffs INH Q4H PRN PRN Reason: Shortness Of Breath Or Wheezin Stop: 01/29/21 12:35 Albuterol (Albut/Ipratrop 3mg/0.5mg Neb 3 Ml Vial) 3 ml INH QID PRN PRN Reason: Shortness Of Breath Or Wheezin Stop: 01/29/21 12:18 Amlodipine Besylate (Amlodipine Besylate 5 Mg Tab) 5 mg PO QAM ALYSIA Stop: 02/05/21 08:59 Last Admin: 01/06/21 08:49 Dose: 5 mg Documented by: Ascorbic Acid (Ascorbic Acid 500 Mg Tab) 250 mg PO BID [facility] Stop: 01/29/21 20:59 Last Admin: 01/06/21 21:40 Dose: 250 mg Documented by: Aspirin (Aspirin 81 Mg Ectab) 81 mg PO QAM ALYSIA Stop: 01/30/21 08:59 Last Admin: 01/06/21 08:49 Dose: 81 mg Documented by: Baclofen (Baclofen 10 Mg Tab) 10 mg PO HS PRN PRN Reason: Cramps Stop: 01/29/21 12:18 Dextrose (Dextrose 50% 50 Ml Syringe) 25 - 50 ml IV UD PRN; Protocol PRN Reason: Hypoglycemia Protocol Stop: 01/29/21 12:18 Last Admin: 12/31/20 00:46 Dose: 25 ml Documented by: Digoxin (Digoxin 0.125 Mg Tab) 0.125 mg PO MoWeFr@1600 [facility] Stop: 01/30/21 15:59 Last Admin: 01/04/21 16:17 Dose: 0.125 mg Documented by: Ferrous Sulfate (Ferrous Sulfate 325 Mg Tab) 325 mg PO BID [facility] Stop: 01/29/21 20:59 Last Admin: 01/06/21 21:40 Dose: 325 mg Documented by: Fluticasone Propionate (Fluticasone Propionate Na Spr 16 Gm Btl) 2 sprays NA DAILY PRN PRN Reason: Nasal Congestion Stop: 01/29/21 12:18 Fluticasone/Vilanterol (Fluticasone/Vilanterol 100/25mcg 14 Puffs/Inhaler) 1 puffs INH QAM [facility] Stop: 01/30/21 08:59 Last Admin: 01/06/21 08:50 Dose: 1 puffs Documented by: Gabapentin (Gabapentin 100 Mg Cap) 100 mg PO TIDM ALYSIA Stop: 01/29/21 16:59 Last Admin: 01/06/21 17:00 Dose: 100 mg Documented by: Glucagon (Glucagon For Inj 1 Mg Vial) 1 mg SQ UD PRN; Protocol PRN Reason: Hypoglycemia Protocol Stop: 01/29/21 12:18 Glucose (Glucose 10 Tabs/Tube) 4 - 8 tabs PO UD PRN; Protocol PRN Reason: Hypoglycemia Protocol Stop: 01/29/21 12:18 Glucose (Glucose 40% Gel 15 Gm Tube) 15 - 30 gm PO UD PRN; Protocol PRN Reason: Hypoglycemia Protocol Stop: 01/29/21 12:18 Heparin Sodium (Porcine) (Heparin Sod 5,000 Unit/0.5 Ml Vial) 5,000 units SQ Q8 [facility] Stop: 01/08/21 13:59 Last Admin: 01/07/21 07:04 Dose: 5,000 units Documented by: Hydralazine HCl (Hydralazine Tab 50 Mg Tab) 100 mg PO TID [facility] Stop: 02/05/21 20:59 Last Admin: 01/06/21 21:41 Dose: 100 mg Documented by: Daptomycin 350 mg/ Syringe 7 mls @ 3.5 mls/min IV Q48H [facility]; Protocol Stop: 01/13/21 12:59 Last Admin: 01/05/21 12:59 Dose: 3.5 mls/min Documented by: Bumetanide 2 mg/ Syringe 8 mls @ 4 mls/min IV BID@0900,1700 [facility] Stop: 02/03/21 17:01 Last Admin: 01/06/21 16:59 Dose: 4 mls/min Documented by: Piperacillin Sod/Tazobactam (Sod 4.5 gm/ Dextrose) 120 mls @ 30 mls/hr IV Q8H [facility]; Protocol Stop: 01/13/21 13:59 Last Admin: 01/07/21 07:04 Dose: 30 mls/hr Documented by: Insulin Aspart (Insulin Aspart 100 Units/Ml 3 Ml Pen) 0 units SC AC [facility] Stop: 01/31/21 16:29 Last Admin: 01/06/21 17:10 Dose: 42 units Documented by: Insulin Aspart (Insulin Aspart 100 Units/Ml 3 Ml Pen) 0 units SC HS [facility] Stop: 01/31/21 20:59 Last Admin: 01/06/21 22:47 Dose: Not Given Documented by: Insulin Glargine (Insulin Glargine Solostar 100 Units/Ml 3 Ml Pen) 12 units SC BID [facility] Stop: 02/04/21 08:59 Last Admin: 01/06/21 21:41 Dose: 12 units Documented by: Isosorbide Dinitrate (Isosorbide Dinitrate 10 Mg Tab) 10 mg PO TID@0700,1200,1700 [facility] Stop: 01/29/21 16:59 Last Admin: 01/06/21 16:59 Dose: 10 mg Documented by: Lactobacillus Acidoph/Casei/Rhamnos (Advanced Probiotic 1250 Mg Capsule) 2 cap PO DAILY [facility] Stop: 02/01/21 16:14 Last Admin: 01/06/21 08:49 Dose: 2 cap Documented by: Metoprolol Succinate (Metoprolol Succ 50mg Ext Rel Tab) 100 mg PO BID [facility] Stop: 01/29/21 20:59 Last Admin: 01/06/21 21:41 Dose: 100 mg Documented by: Miscellaneous (Carbohydrates For Hypoglycemia ) 15 - 30 gm PO UD PRN PRN Reason: Hypoglycemia Protocol Stop: 01/29/21 12:18 Miscellaneous Information (Pharmacy Glycemic Mgmt Consult) 1 ea N/A UD PRN; P rotocol PRN Reason: Consult Stop: 01/29/21 12:18 Miscellaneous Information (Piperacill/Tazobac Consult Active) 1 ea N/A UD PRN PRN Reason: Consult Stop: 01/29/21 12:22 Miscellaneous Information (Daptomycin Consult Active) 1 ea N/A UD PRN PRN Reason: Consult Stop: 01/29/21 12:42 Ondansetron HCl (Ondansetron Inj 2 Mg/Ml 2 Ml Vial) 4 mg IV Q6H PRN PRN Reason: Nausea Stop: 01/29/21 12:18 Pantoprazole Sodium (Pantoprazole 40 Mg Tab) 40 mg PO QAM [facility] Stop: 01/30/21 08:59 Last Admin: 01/06/21 08:49 Dose: 40 mg Documented by: Polyethylene Glycol (Polyethylene (Miralax) 17 Gm Pack) 17 gm PO DAILY PRN PRN Reason: Constipation Stop: 01/29/21 12:18 Potassium Chloride (Potassium Chloride 10 Meq Tabcr) 30 meq PO BID [facility] Stop: 02/05/21 20:59 Last Admin: 01/06/21 21:42 Dose: 30 meq Documented by: Vitamin D (Cholecalciferol 1,000 Units 25 Mcg Tab) 2,000 units PO QAM [facility] Stop: 01/30/21 08:59 Last Admin: 01/06/21 08:47 Dose: 2,000 units Documented by: Warfarin Sodium (Warfarin Sod 5 Mg Tab) 5 mg PO TuThSa@1600 [facility] Stop: 01/31/21 15:59 Last Admin: 01/05/21 17:29 Dose: 5 mg Documented by: Warfarin Sodium (Warfarin Sod 10 Mg Tab) 10 mg PO [id number]@1600 [facility] Stop: 01/29/21 15:59 Last Admin: 01/06/21 17:00 Dose: 10 mg Documented by: (1) CHF (congestive heart failure) Heart failure chronicity: unspecified Heart failure type: unspecified Qualified Code(s): I50.9 - Heart failure, unspecified (2) Leg wound, left Encounter type: subsequent encounter Qualified Code(s): S81.802D - Unspecified open wound, left lower leg, subsequent encounter
[2021-01-07] MEDS: amLODIPine BESYLATE 5 MG TAB PO SCH (08:02)
[2021-01-07] MEDS: INSULIN ASPART 100 UNITS/ML 3 ML PEN SC SCH ×4 (08:02→21:01)
[2021-01-07] MEDS: ISOSORBIDE DINITRATE 10 MG TAB PO SCH ×3 (08:02→16:34)
[2021-01-07] MEDS: INSULIN GLARGINE SOLOSTAR 100 UNITS/ML 3 ML PEN SC SCH ×2 (08:03→21:28)
[2021-01-07] MEDS: FLUTICASONE/VILANTEROL 100/25MCG 14 PUFFS/INHALER INH SCH (08:03)
[2021-01-07] MEDS: POTASSIUM CHLORIDE 10 MEQ TABCR PO SCH ×2 (08:04→20:58)
--- NOTE | 2021-01-07 10:10 | Nephrology Progress Note ---
Date of Service January 07, 2021 Assessment & Plan Admission and Anticipated Discharge Date Admission Date: December 30, 2020 Subjective Assessment & Plan Admission and Anticipated Discharge Date Admission Date: December 30, 2020 Subjective Assessment & Plan (1) Acute on chronic renal failure: Plan: presenting creat may simply represent CKD progression--more likely. ? ATN from antibiotics/wounds feels less SOB. No e/o Pulm edema on CXR Will change to oral diuretics So stop bumex iv. Will do torsemide 40 daily from now--this is higher dose than before but he needs it to keep euvolemic --daily bmp -cont to avoid nephrotoxins -cont 1.5L fluid limit and <2 gm daily Na diet -no indication for urgent dialysis now and will not need it this admission as creat has been holding stable just under 4 now. Subjective denies sob . No new issues. making urine Review of Systems Review of Systems: All systems reviewed & are unremarkable except as noted in Subjective Physical Exam Constitutional: well developed, well nourished, + obese and cooperative; no acute distress Eyes: EOM intact bilaterally ENMT: Ears: no external ear abnormality Nose: no external nose abnormality Mouth: + dry oral mucous membranes Neck: no nuchal rigidity Respiratory: normal respiratory effort Auscultation: + diminished lung sounds Cardiovascular: Rate/Rhythm: regular rate and regular rhythm Heart Sounds: + murmur Extremities: + edema (1+ LLE > RLE) Gastrointestinal (Abdomen): Inspection/Auscultation: normal bowel sounds Percussion/Palpation: abdomen soft; abdomen nontender Musculoskeletal: Extremities: strength 5/5 throughout Skin: no rashes, warm and dry skin ulcers LE as prev Psychiatric: Orientation: alert and oriented x 3 Results & Data ([facility]) Vital Signs (Past 12 Hours) Vital Signs Temp Pulse Pulse Resp BP Pulse Ox 01/07/21 06:25 37.1 C 60 21 121/73 99 01/07/21 04:36 36.8 C 70 122/72 97 01/06/21 23:13 36.9 C 70 128/72 98
[2021-01-07] MEDS: TORSEMIDE 10 MG TAB PO SCH (11:46)
--- NOTE | 2021-01-07 14:21 | Anesthesiology Consultation ---
Date of Service January 07, 2021 Assessment & Plan (1) Encounter for pre-operative examination: Patient originally had cardiac eval September 2020 for preop exam for lap lucia at this hospital by Dr. Orta. At that time cardiology deemed patient high risk from a cardiac perspective for complications. However, also deemed him high risk for complications stemming from cholecystitis (including sepsis) and said this needed to be addressed before they considered valve surgery. Anesthesiologist here stated patient should have gallbladder surgery done at tertiary care facility and surgeon canceled surgery here at [facility]. Unclear if he had this done at OSH. Nephrology consulted on this patient during this admission and currently do not think there is any indication for dialysis. Chart Review Chart Review: Acceptable Risk for Surgery and Patient NOT seen in Pre Admission Testing Covid positive 08/05/20 and 09/17/20 but NOW NEGATIVE 12/30/20. Consults Requested none History Surgery Operation Date: 01/08/21 07:30 Proposed Procedures p Left Lower Extremity Debridement and Biopsy - Ignacio Chisholm, DO Height/Weight Height: 5 ft 6 in Weight: 116.7 kg Allergies Allergy/AdvReac Type Severity Reaction Status Date / Time No Known Allergies Allergy Verified 12/30/20 10:11 Medications Home Medications Medication Instructions Recorded Confirmed Last Taken aspirin 81 mg tablet,delayed 81 mg PO QAM 02/05/18 12/30/20 12/30/20 release cholecalciferol (vitamin D3) 50 2,000 unit PO QAM 02/05/18 12/30/20 12/30/20 mcg (2,000 unit) capsule (Vitamin D3) pantoprazole 40 mg tablet,delayed 40 mg PO QAM 02/05/18 12/30/20 12/30/20 release (Protonix) gabapentin 100 mg capsule 100 mg PO TIDM 05/14/18 12/30/20 12/30/20 albuterol sulfate 90 mcg/actuation 2 puff INHALATION Q4H PRN 08/01/18 12/30/20 12/14/20 aerosol inhaler (ProAir HFA) fluticasone propionate 50 2 spray INTRANASAL DAILY PRN 08/01/18 12/30/20 12/30/20 mcg/actuation nasal spray,suspension (Flonase Allergy Relief) ipratropium 0.5 mg-albuterol 3 mg 3 ml INHALATION QID PRN 08/01/18 12/30/20 12/30/20 (2.5 mg base)/3 mL nebulization soln insulin lispro 100 unit/mL See Rx Instructions .ROUTE .COMPLEX 06/05/19 12/30/20 12/30/20 subcutaneous pen (Humalog KwikPen (U-100) Insulin) iron,carbonyl 65 mg-vitamin C 125 1 tab PO BID 06/05/19 12/30/20 12/30/20 mg tablet,delayed release (Vitron-C) fluticasone furoate 100 1 inh INHALATION QAM 03/02/20 12/30/20 12/30/20 mcg-vilanterol 25 mcg/dose inhalation powder (Breo Ellipta) insulin glargine 100 unit/mL (3 30 unit SUBCUT BID 04/23/20 12/30/20 12/30/20 mL) subcutaneous pen (Lantus Solostar U-100 Insulin) warfarin 5 mg tablet 10 mg PO 4XWK 04/23/20 12/30/20 12/29/20 baclofen 10 mg tablet 10 mg PO HS PRN 08/05/20 12/30/20 12/29/20 warfarin 5 mg tablet 5 mg PO 3XWK 08/05/20 12/30/20 12/28/20 guaifenesin 600 mg tablet, 600 mg PO Q12 PRN #10 tab 08/14/20 12/30/20 12/14/20 extended release 12 hr (Mucinex) isosorbide dinitrate 10 mg tablet 10 mg PO TIDM #0 tab 08/14/20 12/30/20 12/30/20 metoprolol succinate 100 mg 100 mg PO BID #60 tab 08/14/20 12/30/20 12/30/20 tablet,extended release 24 hr (Toprol XL) amlodipine 2.5 mg tablet 2.5 mg PO QAM 09/17/20 12/30/20 12/30/20 atorvastatin 80 mg tablet 80 mg PO QPM 09/17/20 12/30/20 12/29/20 hydralazine 25 mg tablet 75 mg PO TID 09/17/20 12/30/20 12/30/20 torsemide 20 mg tablet 20 mg PO UD #90 tab 09/19/20 12/30/20 12/30/20 digoxin 125 mcg (0.125 mg) tablet 125 mcg PO 3XWK 12/14/20 12/30/20 12/28/20 Active Medications Generic Name Dose Route Start Last Admin Trade Name Freq PRN Reason Stop Dose Admin Hydrocodone Bitart/Acetaminophen 1 tab 12/30/20 12:29 01/07/21 08:13 Hydrocodone/Acetamophen 5/325mg Tab PO 01/13/21 12:28 1 tab Q4H PRN Administration Pain Amlodipine Besylate 5 mg 01/06/21 09:00 01/07/21 08:02 Amlodipine Besylate 5 Mg Tab PO 02/05/21 08:59 5 mg QAM ALYSIA Administration Ascorbic Acid 250 mg 12/30/20 21:00 01/07/21 08:01 Ascorbic Acid 500 Mg Tab PO 01/29/21 20:59 250 mg BID ALYSIA Administration Aspirin 81 mg 12/31/20 09:00 01/07/21 08:00 Aspirin 81 Mg Ectab PO 01/30/21 08:59 81 mg QAM ALYSIA Administration Dextrose 25 - 50 ml 12/30/20 12:19 12/31/20 00:46 Dextrose 50% 50 Ml Syringe IV 01/29/21 12:18 25 ml UD PRN Administration Hypoglycemia Protocol Protocol Digoxin 0.125 mg 12/31/20 16:00 01/04/21 16:17 Digoxin 0.125 Mg Tab PO 01/30/21 15:59 0.125 mg [id number] ALYSIA Administration Ferrous Sulfate 325 mg 12/30/20 21:00 01/07/21 08:01 Ferrous Sulfate 325 Mg Tab PO 01/29/21 20:59 325 mg BID ALYSIA Administration Fluticasone/Vilanterol 1 puffs 12/31/20 09:00 01/07/21 08:03 Fluticasone/Vilanterol 100/25mcg 14 Puffs/Inhaler INH 01/30/21 08:59 1 puffs QAM ALYSIA Administration Gabapentin 100 mg 12/30/20 17:00 01/07/21 11:46 Gabapentin 100 Mg Cap PO 01/29/21 16:59 100 mg TIDM ALYSIA Administration Heparin Sodium (Porcine) 5,000 units 01/06/21 14:00 01/07/21 14:29 Heparin Sod 5,000 Unit/0.5 Ml Vial SQ 01/08/21 13:59 5,000 units Q8 ALYSIA Administration Hydralazine HCl 100 mg 01/06/21 21:00 01/07/21 14:28 Hydralazine Tab 50 Mg Tab PO 02/05/21 20:59 100 mg TID ALYSIA Administration Insulin Aspart 0 units 01/01/21 16:30 01/07/21 11:48 Insulin Aspart 100 Units/Ml 3 Ml Pen SC 01/31/21 16:29 29 units AC ALSYIA Administration Insulin Aspart 0 units 01/01/21 21:00 01/06/21 22:47 Insulin Aspart 100 Units/Ml 3 Ml Pen SC 01/31/21 20:59 Not Given HS ALYSIA Insulin Glargine 12 units 01/05/21 09:00 01/07/21 08:03 Insulin Glargine Solostar 100 Units/Ml 3 Ml Pen SC 02/04/21 08:59 12 units BID ALYSIA Administration Isosorbide Dinitrate 10 mg 12/30/20 17:00 01/07/21 11:47 Isosorbide Dinitrate 10 Mg Tab PO 01/29/21 16:59 10 mg TID@0700,1200,1700 ALYSIA Administration Lactobacillus Acidoph/Casei/Rhamnos 2 cap 01/02/21 16:15 01/07/21 08:00 Advanced Probiotic 1250 Mg Capsule PO 02/01/21 16:14 2 cap DAILY ALYSIA Administration Metoprolol Succinate 100 mg 12/30/20 21:00 01/07/21 08:00 Metoprolol Succ 50mg Ext Rel Tab PO 01/29/21 20:59 100 mg BID ALYSIA Administration Pantoprazole Sodium 40 mg 12/31/20 09:00 01/07/21 08:01 Pantoprazole 40 Mg Tab PO 01/30/21 08:59 40 mg QAM ALYSIA Administration Potassium Chloride 30 meq 01/06/21 21:00 01/07/21 08:04 Potassium Chloride 10 Meq Tabcr PO 02/05/21 20:59 30 meq BID ALYSIA Administration Torsemide 40 mg 01/07/21 10:10 01/07/21 11:46 Torsemide 10 Mg Tab PO 02/06/21 10:09 40 mg QAM ALYSIA Administration Vitamin D 2,000 units 12/31/20 09:00 01/07/21 08:01 Cholecalciferol 1,000 Units 25 Mcg Tab PO 01/30/21 08:59 2,000 units QAM ALYSIA Administration Warfarin Sodium 5 mg 01/01/21 16:00 01/05/21 17:29 Warfarin Sod 5 Mg Tab PO 01/31/21 15:59 5 mg [email or web address] ALYSIA Administration Warfarin Sodium 10 mg 12/30/20 16:00 01/06/21 17:00 Warfarin Sod 10 Mg Tab PO 01/29/21 15:59 10 mg [id number] ALYSIA Administration Past Medical History Medical History Aortic stenosis Severe aortic stenosis vs pseudo aortic stenosis due to low output per cardio note from 12/2019 ECHO Asthma Atrial fibrillation on warfarin CAD (coronary artery disease) "nonobstructive" Chronic anemia Chronic kidney disease Stage 4, under surveillance by Dr. Mcdermott (no dialysis at this time) Chronic systolic (congestive) heart failure COPD (chronic obstructive pulmonary disease) Diabetic neuropathy DM type 2 (diabetes mellitus, type 2) IDDM Dyslipidemia Gall stones GERD (gastroesophageal reflux disease) History of COVID-19 Dx 08/05/20(hospitalized at [place]) > symptoms at time of cough, SOB, generalized weakness, n/v/d, loss of taste/smell > "resolved" History of multiple pulmonary nodules Hypertension LBBB (left bundle branch block) Nonischemic cardiomyopathy S/p BIV AICD in place; follows with Dr. Graves Presence of combination internal cardiac defibrillator (ICD) and pacemaker Implanted 5+ years ago, [employer], last check 07/2020 Pulmonary HTN PVD (peripheral vascular disease) Sleep apnea + nocturnal hypoxia > BIPAP + 2L O2 HS Stroke 11/2019 > residual speech difficulty/short term memory issues Per Hospitalist note 01/07/21: Stroke-like symptoms: Likely metabolic/Toxic encephalopathy -CT Head:No significant change compared to the prior study. No acute intracranial abnormality. Blood/Wound Cx negative Mental status back to baseline Past Family History Family History Sister Diabetes Brother Diabetes Other Hypertension Lung cancer Past Surgical History Surgical History H/O cardiac catheterization Non nonobstructive CAD on 2017 cardiac cath H/O total adrenalectomy Left (25 years ago) History of colonoscopy History of esophagogastroduodenoscopy (EGD) Social History Smoking Status: Never smoker tobacco type: smokeless tobacco Do You Dip or Chew Tobacco: Yes Hx Alcohol Use: No Hx Substance Use: No substance use type: does not use Physical Exam Vital Signs Last Vital Signs Temp 37.0 C 01/07/21 12:00 Pulse 85 01/07/21 12:00 Resp 20 01/07/21 12:00 BP 124/76 01/07/21 12:00 Pulse Ox 95 01/07/21 12:00 Testing Laboratory Results 01/07/21 06:13 01/07/21 06:13 PT 17.2 Seconds (9.0-12.0) H 01/07/21 06:13 INR 1.8 (0.9-1.1) H 01/07/21 06:13 APTT 38.4 Seconds (21.0-31.0) H 12/30/20 09:00 Hemoglobin A1c 9.9 % (4.5-5.6) H 12/31/20 05:13 Urine Color Yellow 01/03/21 20:00 Urine Appearance Clear (Clear) 01/03/21 20:00 Urine pH 5.0 (4.5-7.5) 01/03/21 20:00 Ur Specific [place] 1.016 (1.000-1.030) 01/03/21 20:00 Urine Protein 2+ (Negative) H 01/03/21 20:00 Urine Glucose (UA) 2+ (Negative) H 01/03/21 20:00 Urine Ketones Negative (Negative) 01/03/21 20:00 Urine Nitrite Negative (Negative) 01/03/21 20:00 Ur Leukocyte Esterase Negative (Negative) 01/03/21 20:00 Urine WBC (Auto) 1-5 /hpf (0-5) 01/03/21 20:00 Urine RBC (Auto) 5-10 /hpf (0-4) H 01/03/21 20:00 U Hyaline Cast (Auto) 1-5 /lpf (0-5) 01/03/21 20:00 U Epithel Cells (Auto) 5-10 /lpf (0-5) H 01/03/21 20:00 Urine Bacteria (Auto) Negative (Negative) 01/03/21 20:00 12/30/20 09:40 Aerobic Blood Culture - Final Blood No growth in Aerobic bottle after 5 days. Anaerobic Blood Culture - Final No growth in Anaerobic bottle after 5 days. 12/30/20 09:00 Aerobic Blood Culture - Final Blood No growth in Aerobic bottle after 5 days. Anaerobic Blood Culture - Final No growth in Anaerobic bottle after 5 days. 01/02/21 14:40 Gram Stain - Final Leg,Left Wound Culture - Final Low counts mixed probable skin microbiota. No further identifications or sensitivities to follow. 12/30/20 13:55 Gram Stain - Final Leg Wound Culture - Final Low counts mixed probable skin microbiota. No further identifications or sensitivities to follow. 01/07/21 01/07/21 10:59 07:15 POC Glucose 173 H 112 H Electrocardiogram Date: 12/30/20 DICTATED BY: Javier Sharma MD Test Reason : Blood Pressure : / mmHG Vent. Rate : 073 BPM Atrial Rate : 000 BPM P-R Int : 000 ms QRS Dur : 200 ms QT Int : 510 ms P-R-T Axes : 000 190 -10 degrees QTc Int : 561 ms Ventricular-paced rhythm Abnormal ECG When compared with ECG of 17-SEP-2020 03:09, Ventricular-paced rhythm now present Confirmed by Javier Sharma ([id number]) on 12/31/2020 3:02:41 PM Chest X-Ray Date: 12/30/20 XR chest 1V portable CLINICAL HISTORY: CHF COMPARISON STUDY: Chest CT September 17, 2020. Chest radiograph December 30, 2020. FINDINGS: A biventricular pacer/AICD is in place. There is no pneumothorax or pleural effusion. Cardiomegaly is unchanged. There is no evidence for pulmonary edema. No consolidation is identified to suggest pneumonia. IMPRESSION: No acute cardiopulmonary findings. Cardiomegaly. Other Testing Echocardiogram Echo 12/04/20: EF 30%. Severe . Mild MR, LVH, moderate hypokinesis. Echo 01/17/20 EF: 30-34% LV Function: dysfunctional (Moderately reduced) Other Findings: + LVH (Severe/concentric) Rhythm during the TTE examination was atrial fibrillation with controlled willard tricular response. Septal wall motion is abnormal consistent with intraventricular conduction delay. Remaining left ventricular wall segments are moderately hypokinetic. RV systolic function is reduced. Left atrium severely enlarged. Aortic valve severely calcified. Aortic valve opening is severely reduced. Severe aortic valve stenosis is present. Pseudo-aortic stenosis must be considered in the setting of reduced ejection fraction. (IAN 0.72cm2; AV mean PG= 27.6mmHg. AV max velocity= 3.751m/s) Mild AR. Mild MR. Mild TR. Proximal ascending thoracic aorta is mildly enlarged. There is no evidence of pulmonary hypertension. Stress Test Date: 06/29/17 Type: nuclear The Lexiscan nuclear cardiac stress test is negative for ischemia. Left bundle branch block was noted throughout study. Findings are consistent with nonischemic cardiomyopathy. Gated SPECT imaging reveals moderate to severe global left ventricular hypokinesis with a calculated left ventricular ejection fraction of 30% by gated SPECT. Other Testing Chest CT (09/17/20): Small bilateral pleural effusions and mild interlobular septal thickening. Groundglass pulmonary opacities, likely representing pulmonary edema. There are more focal airspace opacities within the right upper lobe posteriorly, pneumonia versus focal edema. Mildly enlarged mediastinal lymph nodes. Motion compromised study. Neck CTA (12/18/19): Atheromatous changes the level of both carotid bulbs without evidence of hemodynamically significant internal carotid artery stenosis. Calcified plaque at the level the vertebral origins with a probable left vertebral artery origin stenosis. 75% stenosis of distal right vertebral artery and 40% stenosis the distal left vertebral artery. Pacemaker/ICD check (08/05/20): GIGAStronic device. Mode DDDR. TRANSITION MGR RN 69.9%. 0 shocks. Estimated battery longevity 3.4 years.
[2021-01-07] MEDS: WARFARIN SOD 10 MG TAB PO SCH (16:33)
[2021-01-07] MEDS: DIGOXIN 0.125 MG TAB PO SCH (16:33)
[2021-01-08] MEDS: HYDROCODONE/ACETAMOPHEN 5/325MG TAB PO PRN ×2 (05:55→21:08)
[2021-01-08] MEDS: HEPARIN SOD 5,000 UNIT/0.5 ML VIAL SQ SCH (05:56)
[2021-01-08] MEDS: ISOSORBIDE DINITRATE 10 MG TAB PO SCH ×3 (06:38→17:14)
[2021-01-08 06:45] LABS: Prothrombin Time 19.4 Seconds (9.0-12.0)
[2021-01-08] MEDS ORDERED: BUPIVACAINE 0.5 % 5 MG/1 ML MPF 30ML VIAL ONE (06:56)
[2021-01-08] MEDS ORDERED: LIDOCAINE 2% 2 ML VIAL/AMP(20MG/ML) INFIL ONE (07:01)
[2021-01-08] MEDS ORDERED: ONDANSETRON INJ 2 MG/ML 2 ML VIAL ONE (07:01)
[2021-01-08] MEDS ORDERED: PROPOFOL IV EMULSION 10 MG/ML 20 ML VIAL IV ONE (07:01)
[2021-01-08] MEDS ORDERED: MIDAZOLAM HCL 1 MG/ML 2ML VIAL ONE (07:02)
[2021-01-08] MEDS ORDERED: fentaNYL citrate 100 MCG/2 ML VIAL ONE (07:02)
--- NOTE | 2021-01-08 07:24 | History & Physical Bridge Note ---
Date of Service January 08, 2021 History & Physical Bridge Note I have examined the patient, reviewed the History & Physical and in the interval since the performance of the History & Physical I have noted the following changes of clinical significance: requested by ID for biopsy. pt high risk for surgery/anesthesia but he has been off his anticoagulation so this would be the optimum timing if anything is going to be done. discussed risks ( bleeding/infection/dvt/pe/mi/cva etc....). questions answered. will proceed with excisional debridement of multiple left lower extremity wounds as well as biopsy of said wounds. pt agreeable.
[2021-01-08] MEDS ORDERED: KETAMINE 50 MG/5 ML SYRINGE ONE (07:25)
[2021-01-08] MEDS ORDERED: ATROPINE SULFATE 0.1 MG/ML 10ML SYR IV PRN (07:31)
[2021-01-08] MEDS ORDERED: ePHEDrine sulfate 50 MG/ML AMP IV PRN (07:31)
[2021-01-08] MEDS: fentaNYL citrate 100 MCG/2 ML VIAL IV PRN ×3 (08:20→08:46)
--- NOTE | 2021-01-08 08:23 | Operative Report ---
PG Post Operative Report Pre & Post Diagnosis Operation Date: 01/08/21 07:30 Pre-Op Diagnosis: Left Lower Medial and Lateral Leg Wounds Post-Op Diagnosis: Left Lower Medial and Lateral Leg Wounds I identified the patient and participated in the time-out.: Yes Procedure Operation Date: 01/08/21 07:30 Actual Procedures p Left Lower Extremity Medial and Lateral excisional Debridement ( greater than 20 sq. cm and Biopsy( both wounds)) - Ignacio Chisholm DO Surgeon Ignacio Chisholm DO Consulting Software Engineer michael caputo Estimated Blood Loss 10 Findings Consistent with Post-Op Diagnosis Specimens 1. medial LLE wound culture and biopsy 2. lateral LLE wound culture and biopsy Description of Procedure After informed consent was obtained the patient was taken the operating room placed in supine position. IV sedation was administered by anesthesia and titrated to effect. After adequate sedation the left leg was placed in a candycane stirrup. The left lower extremity was sterilely prepped and draped in usual fashion. I began with the medial wound. A 15 blade scalpel was used to make sharp incision around the periphery of the eschar. This was carried through full-thickness using sharp knife dissection. The debris was discarded. We debrided down to good healthy bleeding tissue. Once the eschar was off we took a wound culture. Also took 2 pieces of the periphery of the wound and sent those as biopsy specimens. The wound was thoroughly irrigated. Attention then turned to the lateral wound. The same technique was used. A fresh blade was used to sharply excise all necrotic tissue down to good healthy base. Again wound cultures were taken. Again a portion of the periphery of the wound was removed with a 15 blade scalpel and sent to pathology. This wound was also irrigated. We placed Vaseline gauze on both wound bases followed by gauze Yolanda wrap and an Christopher bandage. The patient tolerated the procedure well. The medial wound measured approximately 3 x 4 cm and the lateral wound measured approximately 3 x 3 cm. I attest to the content of the Intraoperative Record and any orders documented therein. Any exceptions are noted below.
[2021-01-08] MEDS ORDERED: ceFAZolin 2000MG 2,000 MG/15 ML SYR IV SCH (08:37)
[2021-01-08] MEDS ORDERED: fentaNYL citrate 100 MCG/2 ML VIAL IV PRN (08:41)
--- NOTE | 2021-01-08 09:12 | Anesthesiology Progress Note ---
Date of Service January 08, 2021 Anesthesia Post Procedure Vital Signs Vital Signs: Temp Pulse Pulse Pulse Resp BP BP 01/08/21 09:00 73 20 172/91 H 01/08/21 08:50 69 18 159/78 H 01/08/21 08:40 73 14 174/75 H 01/08/21 08:30 73 16 172/99 H 01/08/21 08:20 65 16 181/88 H 01/08/21 08:12 97.7 F 70 16 152/82 H 01/08/21 06:57 98.4 F 87 18 156/80 H 01/08/21 04:01 99.1 F 67 21 129/80 01/07/21 23:47 97.9 F 66 18 148/78 H 01/07/21 22:19 71 01/07/21 19:13 98.2 F 69 18 178/90 H 01/07/21 16:33 81 01/07/21 16:30 98.4 F 95 H 18 124/68 01/07/21 12:00 98.6 F 85 20 124/76 Pulse Ox 01/08/21 09:00 94 01/08/21 08:50 95 01/08/21 08:40 94 01/08/21 08:30 94 01/08/21 08:20 98 01/08/21 08:12 98 01/08/21 06:57 94 01/08/21 04:01 98 01/07/21 23:47 98 01/07/21 22:19 01/07/21 19:13 95 01/07/21 16:33 01/07/21 16:30 95 01/07/21 12:00 95 Pain Intensity Left Calf: Pain Intensity: 6 Left Lower Leg: Pain Intensity: 4 Transfer of Care Handoff Completed per policy Notes Mental Status: alert / awake / arousable and participated in evaluation Patient Amnestic to Procedure: Yes Nausea / Vomiting: adequately controlled Pain: adequately controlled Airway Patency, RR, SpO2: stable & adequate BP & HR: stable & adequate Hydration State: stable & adequate Anesthetic Complications: no major complications apparent and Pt Satisfied with anesthetic care
[2021-01-08] MEDS: POTASSIUM CHLORIDE 10 MEQ TABCR PO SCH ×2 (09:32→20:57)
[2021-01-08] MEDS: ASCORBIC ACID 500 MG TAB PO SCH ×2 (09:32→20:57)
[2021-01-08] MEDS: METOPROLOL SUCC 50MG EXT REL TAB PO SCH ×2 (09:32→20:57)
[2021-01-08] MEDS: CHOLECALCIFEROL 1,000 UNITS 25 MCG TAB PO SCH (09:33)
[2021-01-08] MEDS: ADVANCED PROBIOTIC 1250 MG CAPSULE PO SCH (09:33)
[2021-01-08] MEDS: hydrALAZINE TAB 50 MG TAB PO SCH ×3 (09:33→20:58)
[2021-01-08] MEDS: PANTOprazole 40 MG TAB PO SCH (09:33)
[2021-01-08] MEDS: TORSEMIDE 10 MG TAB PO SCH (09:33)
[2021-01-08] MEDS: amLODIPine BESYLATE 5 MG TAB PO SCH (09:33)
[2021-01-08] MEDS: ASPIRIN 81 MG ECTAB PO SCH (09:34)
[2021-01-08] MEDS: FERROUS SULFATE 325 MG TAB PO SCH ×2 (09:34→20:58)
[2021-01-08] MEDS: GABAPENTIN 100 MG CAP PO SCH ×3 (09:35→17:14)
[2021-01-08] MEDS: INSULIN ASPART 100 UNITS/ML 3 ML PEN SC SCH ×4 (09:35→20:56)
[2021-01-08] MEDS: FLUTICASONE/VILANTEROL 100/25MCG 14 PUFFS/INHALER INH SCH (09:43)
[2021-01-08] MEDS: INSULIN GLARGINE SOLOSTAR 100 UNITS/ML 3 ML PEN SC SCH ×2 (09:43→20:56)
--- NOTE | 2021-01-08 10:27 | Hospitalist Progress Note ---
Date of Service January 08, 2021 Assessment & Plan (1) Stroke-like symptoms: Plan: Patient is a 65 yr male with H/O Insulin-dependent T2 DM, chronic atrial fibrillation anticoagulated on warfarin, nonischemic cardiomyopathy with right greater than left biventricular systolic and diastolic heart failure, chronic left bundle rekha block status post biventricular pacemaker defibrillator implanted on June 2017, severe aortic stenosis, CAD, severe central and obs tructive sleep apnea treated with BiPAP, history of CVA while off Coumadin, CKD stage IV, COPD, tobacco abuse with chewing tobacco, HTN, HLD, history of Covid who presents to ED secondary to increased confusion, word finding difficulty and right hand weakness for 1 to 2 days. Stroke like symptoms Likely metabolic/Toxic encephalopathy -CT Head:No significant change compared to the prior study. No acute intracranial abnormality. Blood/Wound Cx negative Appreciate Neurology input Mental status back to baseline Monitor (2) Leg wound, left: Plan: Non healing Left lower extremity wound Previously had been following with [place] wound [facility] and patient unhappy with results. US on 12/14, negative for DVT, INR therapeutic -Arterial Doppler:No mariah stenosis. Biphasic and monophasic waveforms distally may reflect atherosclerotic disease. Appreciate wound care in put. ESR 51, CRP 0.97 On Zosyn/daptomycin Blood and wound cultures Negative Consulted ID for Input As per Prior hospitalist: Per wound care - recommend vascular surgery is consulted - Dg.: PAD - Pt with mild/moderate PAD and is asymptomatic. Pt not candidate for endovascular intervention secondary to severe CKD. No indications for vascular surgical intervention at this time. Recommend continue abx per medicine/wound care, and eval of wounds for debridement by Wound Care provider or General Surgery. -General surgery consulted - no plan for surgical debridement at this time Debridement per wound care, outpt wound care appointment not until end december - may need to be seen by surgery as outpt earlier 01/07 - ID consulted -recommend to stop IV antibiotics and ask for skin biopsy General surgery contacted about skin biopsy, pt is now s/p skin biopsy and debridement earlier today (01/08) wound cultx also sent from OR - follow (3) Hyperglycemia due to diabetes mellitus: Plan: Last A1c 9.0 10/12/2020, now 9.9 Lantus/NovoLog per protocol Consult glycemic pharmacy, appreciate Input (4) CKD (chronic kidney disease) stage 4, GFR 15-29 ml/min: Plan: PAM on CKD IV Baseline creatinine 2.5-2.8. Cr above 4 during this admission Cr: now mildly decreased ~3.9 Appreciate nephrology Input on IV Bumex now switched to PO torsemide 40 mg daiy Monitor renal function Avoid nephrotoxic agents as able Hypokalemia Replace electrolytes as needed Monitor (5) CAD (coronary artery disease): (6) CHF (congestive heart failure): Plan: Last echocardiogram 12/04/2020 EF 30%, severe aortic stenosis, mild MR, LVH, moderate hypokinesis Monitor Daily weights, strict I's and O's Continue ASA, warfarin, hydralazine, Imdur, metoprolol Hold statin while on daptomycin Continue IV diuresis (7) Chronic atrial fibrillation: Plan: Follows [facility]ology Continue metoprolol Recently started on digoxin Monitor INR:2.0>1.7 Subtherapeutic INR Heparin SQ while INR is subtherapeutic Continue Coumadin (8) Presence of combination internal cardiac defibrillator (ICD) and pacemaker: Plan: Not MRI compatible Hypertension Amlodipine increased to 5 mg daily Continue metoprolol, Isosorbide Hydralazine increased to 100 mg 3 times daily Appreciate Nephrology input Monitor BP (9) ARPIT (obstructive sleep apnea): Plan: BiPAP at HS with 2L O2 (10) Chronic anemia: Plan: no bleeding on vitron C likely 2/2 to chronic disease Monitor Plan: DVT Px: Warfarin Heparin SQ until INR in therapeutic range Code Status FULL CODE Admission and Anticipated Discharge Date Admission Date: December 30, 2020 Subjective Patient seen in follow-up of left lower extremity wound Currently sitting up in the chair, in no acute distress, no acute events overnight Denies any fevers, chills, chest pain, shortness of breath He is awake alert answering questions appropriately ID consulted -recommend to stop IV antibiotics and ask for skin biopsy General surgery contacted, pt is now s/p skin biopsy and debridement done earlier today Patient tolerated procedure well Wound nurse following closely Nephrology following for PAM Review of Systems Review of Systems: All systems reviewed & are unremarkable except as noted in Subjective Physical Exam Physical Exam: General: A&Ox3 HEENT: NCAT, MMM, EOMI, PERRL Neck: Supple, normal range of motion CVS: normal rate and rhythm Resp: b/l good breath sounds Abdomen: Soft, ND/NT, +BS Extremities: Left lower extremity with 3 x 4 cm wound x2 with mild erythema, minimal discharge - prior to debridement (01/08), now in clean dressings Neuro: Alert oriented, answering questions appropriately, face symmetric,speech is clear, moves extremities Skin: warm and dry, except as above MSK: normal ROM, no joint swelling/erythema Results & Data Results & Data ([facility]) Vital Signs (Past 12 Hours) Vital Signs Temp Pulse Pulse Resp BP BP Pulse Ox 01/08/21 09:10 65 15 162/99 H 97 01/08/21 09:00 73 20 172/91 H 94 01/08/21 08:50 69 18 159/78 H 95 01/08/21 08:40 73 14 174/75 H 94 01/08/21 08:30 73 16 172/99 H 94 01/08/21 08:20 65 16 181/88 H 98 01/08/21 08:12 36.5 C 70 16 152/82 H 98 01/08/21 06:57 36.9 C 87 18 156/80 H 94 01/08/21 04:01 37.3 C 67 21 129/80 98 01/07/21 23:47 36.6 C 66 18 148/78 H 98 Laboratory Results 01/08/21 01/08/21 01/08/21 Range/Units 09:32 08:16 06:33 PT (9.0-12.0) Seconds INR (0.9-1.1) POC Glucose 189 H 190 H 215 H (70-99) mg/dl 01/08/21 01/07/21 01/07/21 Range/Units 05:54 23:14 20:29 PT 19.4 H (9.0-12.0) Seconds INR 2.0 H (0.9-1.1) POC Glucose 274 H 305 H* (70-99) mg/dl 01/07/21 01/07/21 Range/Units 16:14 10:59 PT (9.0-12.0) Seconds INR (0.9-1.1) POC Glucose 124 H 173 H (70-99) mg/dl Medications Administered Current Inpatient Medications Acetaminophen (Acetaminophen 325 Mg Tab) 650 mg PO Q4H PRN PRN Reason: Pain or Fever Stop: 01/29/21 12:18 Hydrocodone Bitart/Acetaminophen (Hydrocodone/Acetamophen 5/325mg Tab) 1 tab PO Q4H PRN PRN Reason: Pain Stop: 01/13/21 12:28 Last Admin: 01/08/21 05:55 Dose: 1 tab Documented by: Albuterol (Albuterol Hfa 8 Gm Inhaler) 2 puffs INH Q4H PRN PRN Reason: Shortness Of Breath Or Wheezin Stop: 01/29/21 12:35 Albuterol (Albut/Ipratrop 3mg/0.5mg Neb 3 Ml Vial) 3 ml INH QID PRN PRN Reason: Shortness Of Breath Or Wheezin Stop: 01/29/21 12:18 Amlodipine Besylate (Amlodipine Besylate 5 Mg Tab) 5 mg PO QAM [facility] Stop: 02/05/21 08:59 Last Admin: 01/08/21 09:33 Dose: 5 mg Documented by: Ascorbic Acid (Ascorbic Acid 500 Mg Tab) 250 mg PO BID [facility] Stop: 01/29/21 20:59 Last Admin: 01/08/21 09:32 Dose: 250 mg Documented by: Aspirin (Aspirin 81 Mg Ectab) 81 mg PO QAM [facility] Stop: 01/30/21 08:59 Last Admin: 01/08/21 09:34 Dose: 81 mg Documented by: Baclofen (Baclofen 10 Mg Tab) 10 mg PO HS PRN PRN Reason: Cramps Stop: 01/29/21 12:18 Dextrose (Dextrose 50% 50 Ml Syringe) 25 - 50 ml IV UD PRN; Protocol PRN Reason: Hypoglycemia Protocol Stop: 01/29/21 12:18 Last Admin: 12/31/20 00:46 Dose: 25 ml Documented by: Digoxin (Digoxin 0.125 Mg Tab) 0.125 mg PO [id number]@1600 [facility] Stop: 01/30/21 15:59 Last Admin: 01/07/21 16:33 Dose: 0.125 mg Documented by: Ferrous Sulfate (Ferrous Sulfate 325 Mg Tab) 325 mg PO BID [facility] Stop: 01/29/21 20:59 Last Admin: 01/08/21 09:34 Dose: 325 mg Documented by: Fluticasone Propionate (Fluticasone Propionate Na Spr 16 Gm Btl) 2 sprays NA DAILY PRN PRN Reason: Nasal Congestion Stop: 01/29/21 12:18 Fluticasone/Vilanterol (Fluticasone/Vilanterol 100/25mcg 14 Puffs/Inhaler) 1 puffs INH QAM [facility] Stop: 01/30/21 08:59 Last Admin: 01/08/21 09:43 Dose: 1 puffs Documented by: Gabapentin (Gabapentin 100 Mg Cap) 100 mg PO TIDM [facility] Stop: 01/29/21 16:59 Last Admin: 01/08/21 09:35 Dose: 100 mg Documented by: Glucagon (Glucagon For Inj 1 Mg Vial) 1 mg SQ UD PRN; Protocol PRN Reason: Hypoglycemia Protocol Stop: 01/29/21 12:18 Glucose (Glucose 10 Tabs/Tube) 4 - 8 tabs PO UD PRN; Protocol PRN Reason: Hypoglycemia Protocol Stop: 01/29/21 12:18 Glucose (Glucose 40% Gel 15 Gm Tube) 15 - 30 gm PO UD PRN; Protocol PRN Reason: Hypoglycemia Protocol Stop: 01/29/21 12:18 Heparin Sodium (Porcine) (Heparin Sod 5,000 Unit/0.5 Ml Vial) 5,000 units SQ Q8 [facility] Stop: 01/08/21 13:59 Last Admin: 01/08/21 05:56 Dose: 5,000 units Documented by: Hydralazine HCl (Hydralazine Tab 50 Mg Tab) 100 mg PO TID [facility] Stop: 02/05/21 20:59 Last Admin: 01/08/21 09:33 Dose: 100 mg Documented by: Cefazolin Sodium (Ancef 2000mg) 2,000 mg in 15 mls @ 3.75 mls/min IV PREOP [facility] Stop: 01/08/21 18:00 Last Admin: 01/08/21 07:40 Dose: 3.75 mls/min Documented by: Insulin Aspart (Insulin Aspart 100 Units/Ml 3 Ml Pen) 0 units SC AC [facility] Stop: 01/31/21 16:29 Last Admin: 01/08/21 09:35 Dose: 5 units Documented by: Insulin Aspart (Insulin Aspart 100 Units/Ml 3 Ml Pen) 0 units SC HS [facility] Stop: 01/31/21 20:59 Last Admin: 01/07/21 21:01 Dose: 5 units Documented by: Insulin Glargine (Insulin Glargine Solostar 100 Units/Ml 3 Ml Pen) 12 units SC BID [facility] Stop: 02/04/21 08:59 Last Admin: 01/08/21 09:43 Dose: 12 units Documented by: Isosorbide Dinitrate (Isosorbide Dinitrate 10 Mg Tab) 10 mg PO TID@0700,1200,1700 [facility] Stop: 01/29/21 16:59 Last Admin: 01/08/21 06:38 Dose: 10 mg Documented by: Lactobacillus Acidoph/Casei/Rhamnos (Advanced Probiotic 1250 Mg Capsule) 2 cap PO DAILY [facility] Stop: 02/01/21 16:14 Last Admin: 01/08/21 09:33 Dose: 2 cap Documented by: Metoprolol Succinate (Metoprolol Succ 50mg Ext Rel Tab) 100 mg PO BID [facility] Stop: 01/29/21 20:59 Last Admin: 01/08/21 09:32 Dose: 100 mg Documented by: Miscellaneous (Carbohydrates For Hypoglycemia ) 15 - 30 gm PO UD PRN PRN Reason: Hypoglycemia Protocol Stop: 01/29/21 12:18 Miscellaneous Information (Pharmacy Glycemic Mgmt Consult) 1 ea N/A UD PRN; Protocol PRN Reason: Consult Stop: 01/29/21 12:18 Ondansetron HCl (Ondansetron Inj 2 Mg/Ml 2 Ml Vial) 4 mg IV Q6H PRN PRN Reason: Nausea Stop: 01/29/21 12:18 Pantoprazole Sodium (Pantoprazole 40 Mg Tab) 40 mg PO QAM [facility] Stop: 01/30/21 08:59 Last Admin: 01/08/21 09:33 Dose: 40 mg Documented by: Polyethylene Glycol (Polyethylene (Miralax) 17 Gm Pack) 17 gm PO DAILY PRN PRN Reason: Constipation Stop: 01/29/21 12:18 Potassium Chloride (Potassium Chloride 10 Meq Tabcr) 30 meq PO BID [facility] Stop: 02/05/21 20:59 Last Admin: 01/08/21 09:32 Dose: 30 meq Documented by: Torsemide (Torsemide 10 Mg Tab) 40 mg PO QAM [facility] Stop: 02/06/21 10:09 Last Admin: 01/08/21 09:33 Dose: 40 mg Documented by: Vitamin D (Cholecalciferol 1,000 Units 25 Mcg Tab) 2,000 units PO QAM [facility] Stop: 01/30/21 08:59 Last Admin: 01/08/21 09:33 Dose: 2,000 units Documented by: Warfarin Sodium (Warfarin Sod 5 Mg Tab) 5 mg PO [id number]@1600 [facility] Stop: 01/31/21 15:59 Last Admin: 01/05/21 17:29 Dose: 5 mg Documented by: Warfarin Sodium (Warfarin Sod 10 Mg Tab) 10 mg PO [id number]@1600 [facility] Stop: 01/29/21 15:59 Last Admin: 01/07/21 16:33 Dose: 10 mg Documented by: (1) Leg wound, left Encounter type: subsequent encounter Qualified Code(s): S81.802D - Unspecified open wound, left lower leg, subsequent encounter (2) CHF (congestive heart failure) Heart failure chronicity: unspecified Heart failure type: unspecified Qualified Code(s): I50.9 - Heart failure, unspecified
--- NOTE | 2021-01-08 10:40 | Pharmacy Report ---
Pharmacy Glycemic Short Note 2 - Date of Service January 08, 2021 - Glycemic Short BSG Results (Last 24 hours): 01/07/21 01/07/21 01/07/21 10:59 16:14 20:29 POC Glucose 173 H 124 H 305 H* 01/07/21 01/08/21 01/08/21 23:14 06:33 08:16 POC Glucose 274 H 215 H 190 H 01/08/21 09:32 POC Glucose 189 H OUTPATIENT ANTIDIABETIC REGIMEN: * Lantus 30 units SQ BID * Lispro 5 units breakfast, 25 units lunch and dinner, 15 units with carb heavy bedtime snack ASSESSMENT: 01/08/21: * BSGs have been relatively well-controlled past couple of days, with some intermittent hyperglycemia. * BSG was quite elevated at HS last night (305mg/dL), which was not expected. Suspect that patient may have had something to eat last night prior to going NPO at midnight? * Pt went to the OR this morning for wound debridement. * No major changes required at this time. 01/05 * Pt has received 97 units of insulin over the past 24hrs * 25 units of basal with Lantus * 72 units of bolus with NovoLog * BSGs 809-444-235-108-67/83 mg/dl * AM fasting LOW at 67mg/dl. Will decrease basal insulin dosing slightly to prevent repeat LOW tomorrow * Post-prandial BSGs remain elevated. Will tighten CR. ... 12/31 * Patient started on insulin infusion last evening, transitioned off around midnight. BSGs this morning 123 mg/dL 162 mg/dL * Lunch BSG was taken after patient had already ate, did cover for carbs but no correction, plan to repeat BSG at 1400 * Will continue 25 units of lantus BID for now, will continue current novolog parameters, tighten if BSG significantly elevated 12/30 * 65 yo male with extensive PMH, including CKD stage IV, COPD, CVD, AFib, Type 2 DM, admitted with encephalopathy, stroke like symptoms, on IV antibiotics. * Patient managed on basal bolus insulin at home, hyperglycemic on arrival, anion gap 9, received 10 units IV insulin in ER. * Blood sugar better 450 --> 282mg/dl, will use basal bolus insulin at this time and titrate to goal blood sugar. PLAN FOR INPATIENT GLYCEMIC CONTROL: * Basal insulin * Lantus 12 units SQ BID * Bolus insulin - increase prandial * NovoLog per scale ACHS or Q6hrs while NPO * Goal Range: Low 110 mg/dL - High 140 mg/dL (140-180 mg/dL at HS) * Correction Factor: 10 mg/dL/unit prior to meals; 30 mg/dL/unit at HS * Nutritional / Prandial insulin per carb ratio of 1 unit per 2 grams CHO consumed with meals, 1 unit per 10 grams CHO consumed HS PLAN FOR DISCHARGE: * see hematology nurse educator note
[2021-01-08 11:23] LABS: Hematocrit (blood only) 33.2 % (42-52); Hemoglobin 10.4 g/dL (14.0-18.0); Mean Corpuscular Hemoglobin 26.7 pg (25-34); Mean Corpuscular Hgb Conc 31.3 g/dL (32-36); Mean Corpuscular Volume 85.3 fL (80-100); Mean Platelet Volume 9.2 fL (7.4-10.4); Platelet Count 125 K/uL (130-400); RDW Coefficient of Variation 15.4 % (11.5-14.5); RDW Standard Deviation 47.7 fL (36.4-46.3); Red Blood Count 3.89 M/uL (4.7-6.1); White Blood Count 6.13 K/uL (4.8-10.8)
[2021-01-08 11:51] LABS: BUN Creatinine Ratio 13.7 (10-20); Calcium 9.3 mg/dl (8.5-10.1); Creatinine Clr Calc Pharmacy 23.7 ml/min; Est GFR (Non-African American) 16.4 ml/min; Magnesium 2.4 mg/dl (1.8-2.4); Potassium 4.1 mmol/L (3.5-5.1)
[2021-01-08 11:52] LABS: Phosphorus 3.3 mg/dl (2.5-4.9)
[2021-01-08] MEDS: WARFARIN SOD 5 MG TAB PO SCH (17:09)
[2021-01-09] MEDS: HYDROCODONE/ACETAMOPHEN 5/325MG TAB PO PRN (01:02)
[2021-01-09 07:12] LABS: Hematocrit (blood only) 32.9 % (42-52); Hemoglobin 10.3 g/dL (14.0-18.0); Mean Corpuscular Hemoglobin 27.1 pg (25-34); Mean Corpuscular Hgb Conc 31.3 g/dL (32-36); Mean Corpuscular Volume 86.6 fL (80-100); Mean Platelet Volume 9.5 fL (7.4-10.4); Platelet Count 136 K/uL (130-400); RDW Coefficient of Variation 15.5 % (11.5-14.5); RDW Standard Deviation 49.4 fL (36.4-46.3); White Blood Count 5.14 K/uL (4.8-10.8)
[2021-01-09 07:48] LABS: BUN Creatinine Ratio 13.8 (10-20); Calcium 9.4 mg/dl (8.5-10.1); Creatinine Clr Calc Pharmacy 24.4 ml/min; Est GFR (African American) 19.7 ml/min; Magnesium 2.3 mg/dl (1.8-2.4); Phosphorus 3.3 mg/dl (2.5-4.9)
[2021-01-09] MEDS: METOPROLOL SUCC 50MG EXT REL TAB PO SCH ×2 (08:25→21:48)
[2021-01-09] MEDS: ASCORBIC ACID 500 MG TAB PO SCH ×2 (08:25→21:48)
[2021-01-09] MEDS: FERROUS SULFATE 325 MG TAB PO SCH ×2 (08:26→21:49)
[2021-01-09] MEDS: POTASSIUM CHLORIDE 10 MEQ TABCR PO SCH ×2 (08:26→21:47)
[2021-01-09] MEDS: CHOLECALCIFEROL 1,000 UNITS 25 MCG TAB PO SCH (08:26)
[2021-01-09] MEDS: hydrALAZINE TAB 50 MG TAB PO SCH ×3 (08:26→21:47)
[2021-01-09] MEDS: TORSEMIDE 10 MG TAB PO SCH (08:27)
[2021-01-09] MEDS: PANTOprazole 40 MG TAB PO SCH (08:27)
[2021-01-09] MEDS: amLODIPine BESYLATE 5 MG TAB PO SCH (08:27)
[2021-01-09] MEDS: GABAPENTIN 100 MG CAP PO SCH ×3 (08:27→17:08)
[2021-01-09] MEDS: ADVANCED PROBIOTIC 1250 MG CAPSULE PO SCH (08:27)
[2021-01-09] MEDS: ISOSORBIDE DINITRATE 10 MG TAB PO SCH ×3 (08:27→17:09)
[2021-01-09] MEDS: ASPIRIN 81 MG ECTAB PO SCH (08:27)
[2021-01-09] MEDS: FLUTICASONE/VILANTEROL 100/25MCG 14 PUFFS/INHALER INH SCH (08:28)
[2021-01-09] MEDS: INSULIN GLARGINE SOLOSTAR 100 UNITS/ML 3 ML PEN SC SCH ×2 (08:32→21:47)
[2021-01-09] MEDS: INSULIN ASPART 100 UNITS/ML 3 ML PEN SC SCH ×4 (08:33→21:53)
--- NOTE | 2021-01-09 12:57 | Hospitalist Progress Note ---
Date of Service January 09, 2021 Assessment & Plan (1) Stroke-like symptoms: Plan: Patient is a 65 yr male with H/O Insulin-dependent T2 DM, chronic atrial fibrillation anticoagulated on warfarin, nonischemic cardiomyopathy with right greater than left biventricular systolic and diastolic heart failure, chronic left bundle rekha block status post biventricular pacemaker defibrillator implanted on June 2017, severe aortic stenosis, CAD, severe central and obst ructive sleep apnea treated with BiPAP, history of CVA while off Coumadin, CKD stage IV, COPD, tobacco abuse with chewing tobacco, HTN, HLD, history of Covid who presents to ED secondary to increased confusion, word finding difficulty and right hand weakness for 1 to 2 days. Stroke like symptoms Likely metabolic/Toxic encephalopathy -CT Head:No significant change compared to the prior study. No acute intracranial abnormality. Blood/Wound Cx negative Appreciate Neurology input Mental status back to baseline. (2) Leg wound, left: Plan: Non healing Left lower extremity wound Previously had been following with [place] wound clinic and patient unhappy with results. US on 12/14, negative for DVT, INR therapeutic -Arterial Doppler:No mariah stenosis. Biphasic and monophasic waveforms distally may reflect atherosclerotic disease. Appreciate wound care in put. ESR 51, CRP 0.97 Initially on Zosyn/daptomycin Blood and wound cultures Negative Consulted ID for Input As per Prior hospitalist: Per wound care - recommend vascular surgery is consulted - Dg.: PAD - Pt with mild/moderate PAD and is asymptomatic. Pt not candidate for endovascular intervention secondary to severe CKD. No indications for vascular surgical intervention at this time. Recommend continue abx per medicine/wound care, and eval of wounds for debridement by Wound Care provider or General Surgery. -General surgery consulted - no plan for surgical debridement at this time Debridement per wound care, outpt wound care appointment not until end december - may need to be seen by surgery as outpt earlier 01/07 - ID consulted -recommend to stop IV antibiotics and ask for skin biopsy S/P skin biopsy and debridement on (01/08) by general surgery. wound cultx also sent from OR - follow (3) Hyperglycemia due to diabetes mellitus: Plan: Last A1c 9.0 10/12/2020, now 9.9 Lantus/NovoLog per protocol Consult glycemic pharmacy, appreciate Input (4) CKD (chronic kidney disease) stage 4, GFR 15-29 ml/min: Plan: PAM on CKD IV Baseline creatinine 2.5-2.8. Cr above 4 during this admission Cr: now mildly decreased ~3.9 Appreciate nephrology Input MATERIALS TECHNICIAN was on IV Bumex now switched to PO torsemide 40 mg daiy Monitor renal function Avoid nephrotoxic agents as able Hypokalemia Replace electrolytes as needed Monitor (5) CAD (coronary artery disease): (6) CHF (congestive heart failure): Plan: Last echocardiogram 12/04/2020 EF 30%, severe aortic stenosis, mild MR, LVH, moderate hypokinesis Monitor Daily weights, strict I's and O's Continue ASA, warfarin, hydralazine, Imdur, metoprolol Restart lipitor 80 mg daily. (7) Chronic atrial fibrillation: Plan: Follows [facility] Continue metoprolol Recently started on digoxin Monitor INR: today at 2 Continue Coumadin (8) Presence of combination internal cardiac defibrillator (ICD) and pacemaker: Plan: Not MRI compatible Hypertension Amlodipine increased to 5 mg daily Continue metoprolol, Isosorbide Hydralazine increased to 100 mg 3 times daily Appreciate Nephrology input Monitor BP (9) ARPIT (obstructive sleep apnea): Plan: BiPAP at HS with 2L O2 (10) Chronic anemia: Plan: no bleeding on vitron C likely 2/2 to chronic disease Monitor Plan: DVT Px: Warfarin Code Status FULL CODE Admission and Anticipated Discharge Date Admission Date: December 30, 2020 Subjective Patient is awake and alert. Review of system is negative. Does complain of left lower extremity discomfort. Review of Systems Review of Systems: All systems reviewed & are unremarkable except as noted in HPI & below Physical Exam Physical Exam: General: A&Ox3 HENT: NCAT, MMM, EOMI Eyes: PERRLA Neck: Supple, normal range of motion CVS: normal rate and rhythm Resp: b/l good breath sounds Abdomen: Soft, ND/NT, +BS Extremities: b/l LE dressing intact Neuro: face symmetric, no gross focal deficit is appreciated, speech is clear Skin: warm and dry, no rashes/lesions/errythema MSK: normal ROM, no joint swelling/erythema Results & Data Results & Data ([facility]) Vital Signs (Past 12 Hours) Vital Signs Temp Pulse Resp BP Pulse Ox 01/09/21 11:32 36.8 C 67 20 153/80 H 94 01/09/21 07:45 37.0 C 71 18 162/50 H 96 01/09/21 04:43 37.3 C 71 16 129/64 94 (1) Leg wound, left Encounter type: subsequent encounter Qualified Code(s): S81.802D - Unspecified open wound, left lower leg, subsequent encounter (2) CHF (congestive heart failure) Heart failure chronicity: unspecified Heart failure type: unspecified Qualified Code(s): I50.9 - Heart failure, unspecified
[2021-01-09] MEDS: WARFARIN SOD 10 MG TAB PO SCH (17:08)
[2021-01-09] MEDS: DIGOXIN 0.125 MG TAB PO SCH (17:08)
[2021-01-10] MEDS: HYDROCODONE/ACETAMOPHEN 5/325MG TAB PO PRN (00:05)
[2021-01-10 08:02] LABS: INR 2.2 (0.9-1.1); Prothrombin Time 21.4 Seconds (9.0-12.0)
[2021-01-10] MEDS: ASPIRIN 81 MG ECTAB PO SCH (08:20)
[2021-01-10] MEDS: METOPROLOL SUCC 50MG EXT REL TAB PO SCH (08:21)
[2021-01-10] MEDS: CHOLECALCIFEROL 1,000 UNITS 25 MCG TAB PO SCH (08:21)
[2021-01-10] MEDS: hydrALAZINE TAB 50 MG TAB PO SCH (08:21)
[2021-01-10] MEDS: FERROUS SULFATE 325 MG TAB PO SCH (08:21)
[2021-01-10] MEDS: ISOSORBIDE DINITRATE 10 MG TAB PO SCH (08:21)
[2021-01-10] MEDS: TORSEMIDE 10 MG TAB PO SCH (08:22)
[2021-01-10] MEDS: amLODIPine BESYLATE 5 MG TAB PO SCH (08:22)
[2021-01-10] MEDS: PANTOprazole 40 MG TAB PO SCH (08:22)
[2021-01-10] MEDS: INSULIN ASPART 100 UNITS/ML 3 ML PEN SC SCH (08:23)
[2021-01-10] MEDS: FLUTICASONE/VILANTEROL 100/25MCG 14 PUFFS/INHALER INH SCH (08:24)
[2021-01-10] MEDS: POTASSIUM CHLORIDE 10 MEQ TABCR PO SCH (08:24)
[2021-01-10] MEDS: INSULIN GLARGINE SOLOSTAR 100 UNITS/ML 3 ML PEN SC SCH (08:25)
[2021-01-10] MEDS: ADVANCED PROBIOTIC 1250 MG CAPSULE PO SCH (09:00)
[2021-01-10] MEDS: ASCORBIC ACID 500 MG TAB PO SCH (09:00)
[2021-01-10] MEDS: GABAPENTIN 100 MG CAP PO SCH (09:00)
[2021-01-10] MEDS ORDERED: ATORVASTATIN 40 MG TAB PO SCH (09:00)
--- NOTE | 2021-01-10 09:59 | Pharmacy Report ---
Pharmacy Glycemic Short Note 2 - Date of Service January 10, 2021 - Glycemic Short BSG Results (Last 24 hours): 01/09/21 01/09/21 01/09/21 11:21 16:19 20:31 POC Glucose 202 H 114 H 129 H 01/10/21 07:26 POC Glucose 134 H OUTPATIENT ANTIDIABETIC REGIMEN: * Lantus 30 units SQ BID * Lispro 5 units breakfast, 25 units lunch and dinner, 15 units with carb heavy bedtime snack * HbA1c: 9.9% (12/31/20) ASSESSMENT: 01/10 * BSGs remain pretty well controlled sans lunchtime BSG of 202 mg/dL yesterday * Received 85 units of insulin (24 units of Lantus and 61 units of Novolog) * No changes to current insulin regimen are anticipated 01/08 * BSGs have been relatively well-controlled past couple of days, with some intermittent hyperglycemia. * BSG was quite elevated at HS last night (305mg/dL), which was not expected. Suspect that patient may have had something to eat last night prior to going NPO at midnight? * Pt went to the OR this morning for wound debridement. * No major changes required at this time. 01/05 * Pt has received 97 units of insulin over the past 24hrs * 25 units of basal with Lantus * 72 units of bolus with NovoLog * BSGs 504-315-726-108-67/83 mg/dl * AM fasting LOW at 67mg/dl. Will decrease basal insulin dosing slightly to prevent repeat LOW tomorrow * Post-prandial BSGs remain elevated. Will tighten CR. ... 12/31 * Patient started on insulin infusion last evening, transitioned off around midnight. BSGs this morning 123 mg/dL 162 mg/dL * Lunch BSG was taken after patient had already ate, did cover for carbs but no correction, plan to repeat BSG at 1400 * Will continue 25 units of lantus BID for now, will continue current novolog parameters, tighten if BSG significantly elevated 12/30 * 65 yo male with extensive PMH, including CKD stage IV, COPD, CVD, AFib, Type 2 DM, admitted with encephalopathy, stroke like symptoms, on IV antibiotics. * Patient managed on basal bolus insulin at home, hyperglycemic on arrival, anion gap 9, received 10 units IV insulin in ER. * Blood sugar better 450 --> 282mg/dl, will use basal bolus insulin at this time and titrate to goal blood sugar. PLAN FOR INPATIENT GLYCEMIC CONTROL: * Basal insulin * Lantus 12 units SQ BID * Bolus insulin - increase prandial * NovoLog per scale ACHS or Q6hrs while NPO * Goal Range: Low 110 mg/dL - High 140 mg/dL (140-180 mg/dL at HS) * Correction Factor: 10 mg/dL/unit prior to meals; 30 mg/dL/unit at HS * Nutritional / Prandial insulin per carb ratio of 1 unit per 2 grams CHO consumed with meals, 1 unit per 10 grams CHO consumed HS PLAN FOR DISCHARGE: * see agricultural extension educator note
[2021-01-10 10:29] LABS: BUN Creatinine Ratio 14.2 (10-20); Calcium 9.7 mg/dl (8.5-10.1); Creatinine Clr Calc Pharmacy 24.7 ml/min; Est GFR (Non-African American) 17.2 ml/min; Potassium 4.1 mmol/L (3.5-5.1)
--- NOTE | 2021-01-10 10:59 | Discharge Summary ---
Date of Service January 10, 2021 Admission HPI Per Admitting Provider This is a 65-year-old male who has significant past medical history of insulin- dependent T2 DM, chronic atrial fibrillation anticoagulated on warfarin, nonischemic cardiomyopathy with right greater than left biventricular systolic and diastolic heart failure, chronic left bundle rekha block status post biventricular pacemaker defibrillator implanted on June 2017, severe aortic stenosis, CAD, severe central and obstructive sleep apnea treated with BiPAP, history of CVA while off Coumadin, CKD stage IV, COPD, tobacco abuse with chewing tobacco, HTN, HLD, history of Covid who presents to ED secondary to increased confusion, word finding difficulty and right hand weakness for 1 to 2 days. His is at bedside. She states over the past 1 to 2 days she has noticed increased confusion, difficulty with word finding and difficulty with right hand. They were out to eat last evening and he was dropping his fork frequently. Also this morning he dropped a milk from his right hand and when he bent over to clean it up he fell. He did not hit his head, lose consciousness or head injury. This morning also after checking his blood sugar he continued to touch his phone with his finger in blood as if it was a glucometer. She does elicit he has a prior recent stroke and does occasionally have difficulty with memory and word finding, but feels this is much more pronounced. Also of significance is a wound to his left medial leg which is been present for several weeks. He is scheduled to follow with [facility] [place] [place] wound clinic in a few weeks. Patient is very frustrated with word finding difficulty and he can tell he is occasionally confused. He also complains of a right hand tremor. His blood sugars have been out of control for the last 2 days in the 4-500 range. Typically he is around 200. He denies any recent fever, chills, sweats, syncope, lightheadedness, chest pain, shortness breath, cough, nausea, vomiting, abdominal pain, change in bowel or urinary habits. He is occasionally constipated secondary to iron. In regards to his heart failure he has been compliant with his torsemide and monitoring his weights. His dry weight is approximately 258 and he has not noticed much of an increase. He denies any lower extremity edema. He does complain of pain to his left leg in regards to wound. He does have history of central sleep apnea and admits to compliance with BiPAP. Admission Exam Per Admitting Provider Constitutional: WD/WN, obese, male, vitals as above, NAD, sitting up in bed, pleasant, conversing easily Head: Normocephalic, Atraumatic Eyes: PERRL, conjunctivae normal, anicteric sclerae ENMT: external ear and nose normal, oropharynx normal Neck: trachea midline, no thyromegaly normal visual inspection Respiratory: normal respiratory effort, lungs clear to auscultation, no wheeze, rales, rhonchi. Normal insp/exp effort, no accessory muscle use Cardiovascular: nml s1, s2, 2/6 KACIE noted RUSB, no edema, 3 x 4 cm wound to medial aspect of left gastrocnemius, no surrounding erythema, but wound bed with eschar, vessels: no JVD or carotid bruit Chest: normal inspection of chest Abdomen: normal bowel sounds, soft, nontender, no hepatosplenomegaly Musculoskeletal: no cyanosis or clubbing, extremities motor strength 5/5 Skin: no rashes, warm and dry normal turgor Neurologic: PERRL, EOMI, accommodation nl, no face palsy, occasional aphasia, word finding difficulties CN's II-XI intact bilaterally and moves all extremities Psychiatric: A+Ox3 to basics, patient with word finding difficulties, slight aphasia, euthymic affect Lymphatic: no cervical or axillary lymphadenopathy : deferred Principal Diagnosis Non healing Left lower extremity wound Discharge Exam General: A&Ox3 HENT: NCAT, MMM, EOMI Eyes: PERRLA Neck: Supple, normal range of motion CVS: normal rate and rhythm Resp: b/l good breath sounds Abdomen: Soft, ND/NT, +BS Extremities: Left lower extremity wound examnied on the day of discharge; minimal surroundig erythema, no active discharge. Neuro: face symmetric, no gross focal deficit is appreciated, speech is clear Skin: warm and dry, no rashes/lesions/errythema MSK: normal ROM, no joint swelling/erythema Discharge Data Allergies Allergy/AdvReac Type Severity Reaction Status Date / Time No Known Allergies Allergy Verified 12/30/20 10:11 Consultations 12/30/20 11:03 ED Decision to Admit Stat 12/30/20 12:33 Consult Neurology Routine 12/30/20 15:13 Consult Nephrology Routine 01/01/21 09:54 Consult Vascular Surgery Routine 01/02/21 15:44 Consult General Surgery Routine 01/05/21 11:48 Consult Infectious Diseases Routine 01/07/21 12:43 Consult Anesthesiology Routine Procedures Performed Operation Date: 01/08/21 07:30 Actual Procedures p Left Lower Extremity Medial and Lateral Debridement and Biopsy(Left) - Ignacio Chisholm, Ordered Studies 12/30/20 09:21 CT head/brain wo con Stat 12/30/20 11:37 US ankle/brachial index comp Routine 12/30/20 12:34 US carotid doppler BI Routine 12/31/20 08:00 CT head/brain wo con Routine 01/01/21 13:00 US arterial duplex LE BI Routine Diabetes Follow up Diabetes Follow-up Needed for HgbA1c >9% Hospital Course (1) Stroke-like symptoms: Patient is a 65 yr male with H/O Insulin-dependent T2 DM, chronic atrial fibrillation anticoagulated on warfarin, nonischemic cardiomyopathy with right greater than left biventricular systolic and diastolic heart failure, chronic left bundle rekha block status post biventricular pacemaker defibrillator implanted on June 2017, severe aortic stenosis, CAD, severe central and obstructive sleep apnea treated with BiPAP, history of CVA while off Coumadin, CKD stage IV, COPD, tobacco abuse with chewing tobacco, HTN, HLD, history of Covid who presents to ED secondary to increased confusion, word finding difficulty and right hand weakness for 1 to 2 days. Stroke like symptoms Likely metabolic/Toxic encephalopathy -CT Head:No significant change compared to the prior study. No acute intracranial abnormality. Blood/Wound Cx negative Neurology evaluted the patient as well. Stroke was ruled out. Mental status back to baseline. (2) Leg wound, left: Non healing Left lower extremity wound Previously had been following with [place] wound [facility] and patient unhappy with results. US on 12/14, negative for DVT, INR therapeutic -Arterial Doppler:No mariah stenosis. Biphasic and monophasic waveforms distally may reflect atherosclerotic disease. Appreciate wound care in put. ESR 51, CRP 0.97 Initially on Zosyn/daptomycin Blood and wound cultures Negative Consulted ID for Input As per Prior hospitalist: Per wound care - recommend vascular surgery is consulted - Dg.: PAD - Pt with mild/moderate PAD and is asymptomatic. Pt not candidate for endovascular intervention secondary to severe CKD. No indications for vascular surgical intervention at this time. Recommend continue abx per medicine/wound care, and eval of wounds for debridement by Wound Care provider or General Surgery. -General surgery consulted - no plan for surgical debridement at this time Debridement per wound care, outpt wound care appointment not until end of December - may need to be seen by surgery as outpt earlier 01/07 - ID consulted -recommend to stop IV antibiotics and ask for skin biopsy S/P skin biopsy and debridement on (01/08) by general surgery. A. Leg, left medial wound, biopsy: - Skin and fibrovascular tissue with focal necrosis and acute inflammation - Negative for malignancy B. Leg, Left lateral wound, biopsy: - Skin with reactive changes, chronic inflammation, and fibrosis - No ulceration seen - Negative for malignancy Wound cultures from the OR were growing gram-negative bacilli. On the day of discharge patient was afebrile. WBC was within normal limit. Wound was examined on the day of discharge. Did not appear infected no active discharge noted. Patient was discharged in stable condition and recommended to follow-up with wound care and PCP as an outpatient. Wound cultures from the OR were pending at the time of discharge. (3) Hyperglycemia due to diabetes mellitus: Last A1c 9.0 10/12/2020, now 9.9 Lantus dose was decreased to 15 units twice daily prior to discharge. Consult glycemic pharmacy, appreciate Input (4) CKD (chronic kidney disease) stage 4, GFR 15-29 ml/min: PAM on CKD IV Baseline creatinine 2.5-2.8. Cr above 4 during this admission Neurology was consulted during this admission. Patient was discharged on increased torsemide to 40 mg daily. (5) CAD (coronary artery disease): (6) CHF (congestive heart failure): Last echocardiogram 12/04/2020 EF 30%, severe aortic stenosis, mild MR, LVH, moderate hypokinesis Monitor Daily weights, strict I's and O's Continue ASA, warfarin, hydralazine, Imdur, metoprolol lipitor 80 mg daily. (7) Chronic atrial fibrillation: Follows [facility] Continue metoprolol Recently started on digoxin Monitor INR: today at 2.2 Continue Coumadin (8) Presence of combination internal cardiac defibrillator (ICD) and pacemaker: Not MRI compatible Hypertension Amlodipine increased to 5 mg daily Continue metoprolol, Isosorbide Hydralazine increased to 100 mg 3 times daily Appreciate Nephrology input Monitor BP (9) ARPIT (obstructive sleep apnea): BiPAP at HS with 2L O2 (10) Chronic anemia: no bleeding on vitron C likely 2/2 to chronic disease Monitor DVT Px: Warfarin Code Status FULL CODE Total Time Total Time Spent Total Time Spent (In Minutes): 35 Discharge Plan Discharge Items Patient Disposition: Home - Self-Care Reason For Visit: hyperglycemia Discharge Diagnosis: Non healing Left lower extremity wound Activity: Resume your previous activity Non-emergency contact: Primary Care Provider Call non-emergency contact if: your symptoms worsen Follow-up/Referrals: [facility] [Other] - 01/16/21 1:00 pm ([address], [address] [place] [address] ) Mirlande Melton MD [Primary Care Provider] - (Date & Time 01/17/2021 11:20 AM Provider Stella Gaines MD Department Family Medicine [facility] ) Diet: Heart Healthy Addtl Attending Provider Instructions: Start taking torsemide 40 mg daily. You will need to have renal function tests done by your primary care physician. You will need to follow-up with wound care for further management. Lantus was changed to 15 units twice daily. Continue to monitor your glucose levels and discuss with your primary care physician for further adjustment. Pending Studies at Discharge: No (cultures from the OR) Stand-Alone Forms: My [employer], Smoking Cessation Medications and DC Order Prescriptions: New potassium chloride [Klor-Con M10] 10 mEq Tablet,Er Particles/Crystals 20 meq PO DAILY Qty: 30 RF: 0 Continued aspirin 81 mg Tablet,Delayed Release (Dr/Ec) 81 mg PO QAM RF: 0 pantoprazole [Protonix] 40 mg Tablet,Delayed Release (Dr/Ec) 40 mg PO QAM RF: 0 cholecalciferol (vitamin D3) [Vitamin D3] 2,000 unit Capsule 2,000 unit PO QAM RF: 0 Breo Ellipta 100-25 mcg/dose Blister With Device 1 inh INHALATION QAM RF: 0 gabapentin 100 mg Capsule 100 mg PO TIDM RF: 0 ipratropium-albuterol 0.5 mg-3 mg(2.5 mg base)/3 mL Solution For Nebulization 3 ml INHALATION QID PRN (Reason: Shortness Of Breath Or Wheezing) RF: 0 albuterol sulfate [ProAir HFA] 90 mcg/actuation Hfa Aerosol Inhaler 2 puff INHALATION Q4H PRN (Reason: Shortness Of Breath Or Wheezing) RF: 0 fluticasone propionate [Flonase Allergy Relief] 50 mcg/actuation [place],Suspens ion 2 spray INTRANASAL DAILY PRN (Reason: Nasal Congestion) RF: 0 insulin lispro [Humalog KwikPen Insulin] 100 unit/mL Insulin Pen See Rx Instructions .ROUTE .COMPLEX RF: 0 Vitron-C 65 mg iron- 125 mg Tablet,Delayed Release (Dr/Ec) 1 tab PO BID RF: 0 warfarin 5 mg tablet 10 mg PO 4XWK RF: 0 atorvastatin 80 mg tablet 80 mg PO QPM RF: 0 amlodipine 2.5 mg tablet 2.5 mg PO QAM RF: 0 baclofen 10 mg tablet 10 mg PO HS PRN (Reason: Cramps) RF: 0 warfarin 5 mg tablet 5 mg PO 3XWK RF: 0 guaifenesin [Mucinex] 600 mg Tablet Extended Release 12hr 600 mg PO Q12 PRN (Reason: Cough) Qty: 10 RF: 0 isosorbide dinitrate 10 mg Tablet 10 mg PO TIDM Qty: 0 RF: 0 metoprolol succinate [Toprol XL] 100 mg Tablet Extended Release 24 Hr 100 mg PO BID Qty: 60 RF: 1 digoxin 125 mcg (0.125 mg) tablet 125 mcg PO 3XWK RF: 0 Changed torsemide 20 mg tablet 40 mg PO UD Qty: 90 RF: 2 hydralazine 25 mg tablet 100 mg PO TID Qty: 0 RF: 0 Lantus Solostar U-100 Insulin 100 unit/mL (3 mL) insulin pen 15 unit SUBCUT BID Qty: 0 RF: 0 Discharge Orders: Discharge Order (Routine); Ordered 01/10/21 Ordered By: Lise Emerson Admission Data Admit Date/Time: 12/30/20 19:57 Attending Provider: Lise Emerson Admit Provider: Linette Chowdary Primary Care Provider: Mirlande Melton Other Providers: Lise Emerson ; Aj Ames ; Linette Chowdary ; Roxann Palacios ; Kathleen Bosch ; Tree Adam ; Ignacio Chisholm ; Christiano Mcguire ; John Mondragon ; Carmelo Middleton I. ; Gerard Wheatley II ; Elda Hawley ; Billy Naqvi ; Sheng Bolton Other Interventions: Discharge Summary Assessment (RN) Last Done: 01/10/21 10:57
--- NOTE | 2021-01-16 10:38 | Coding Query ---
DEBRIDEMENT DOCUMENTATION To promote full compliance with coding requirements relating to patient care, physician participation is requested in all cases of armored car guard and driver uncertainty. Please assist us with the question(s) below: Please place an X in the parenthesis (x). If other, please document the finding: Depth of Debridement: ( ) Skin ( x) Skin and Subcutaneous Tissue ( ) Skin, Subcutaneous Tissue and Muscle ( ) Skin, Subcutaneous Tissue, Muscle and Bone ( ) Other (please specify): Thank you Lupe Saleh [facility]ITAL[facility]helsie
--- NOTE | 2021-01-16 10:43 | Coding Query ---
SEPSIS POSSIBLE SEPSIS IS DOCUMENTED ON ER, THEN H&P DOCUMENTS DOES NOT MEET SIRS/SEPSIS CRITERIA AND THIS IS REPEATED ON A FEW PROGRESS NOTES, HOWEVER, THE ADDENDUM ON THE 01/01 PROGRESS NOTE DOCUMENTS, "possible Sepsis", and there is no further mention of Sepsis. Please specify below, in your clinical opinion, regarding Sepsis. To promote full compliance with coding requirements relating to patient care, physician participation is requested in all cases of timber girdler uncertainty. Please assist us with the question(s) below: In responding to this query, please exercise your independent professional judgement. The fact that a question is asked does not imply that any particular answer is desired or expected. We appreciate your clarification on this issue. Throughout the medical record, you have clearly documented a localized infection and your patient has clinical evidence of a generalized sepsis or severe sepsis. The term urosepsis is a nonspecific entity and is coded as an UTI. If the patient has sepsis, severe sepsis, from an urinary source or some other source, please clarify in your response below. The medical record reflects the following clinical findings: (With dates as appropriate) (Body temperature of >38.3 C(101 F) or <36 C(96.8F), pulse >90/minute, respirations >20/minute, WBC count >12,000 or <4,000, altered mental status, significant edema or positive fluid balance, hyperglycemia without diabetes, hypotension, metabolic acidosis (elev. lactate level, anion gap or reduced blood pH), shock, positive blood culture (enter organism) ____ ()Bacteremia (Nonspecific laboratory finding of bacteria in the blood) Specify Organism () Present on Admission () Not present on admission () Unable to clinically determine () Septicemia (Systemic disease associated with the presence of pathogenic microorganisms in the blood): Specify Organism () Present on Admission () Not present on admission () Unable to clinically determine () Sepsis Specify Organism Specify Associated Condition/Diagnosis () Present on Admission () Not present on admission () Unable to clinically determine () Severe Sepsis (Sepsis associated with acute organ dysfunction) Specify Organism Specify Associated Condition/Diagnosis () Present on Admission () Not present on admission () Unable to clinically determine () Septic Shock (Severe sepsis with acute circulatory failure, unexplained by other causes) () Present on Admission () Not present on admission () Unable to clinically determine () Sepsis is Ruled-Out () Other, patient has: MTDD
== END 2021-01-10 12:39 | disposition home or self-care (01) | DRG 264 ==
LOC: ED 08:51 → 1E 08:51 → SUATTDRO 19:57 → 2S 01-04 19:24

== ENCOUNTER 2021-04-09 15:18 | Observation (INO) ==
[2021-04-09 15:51] LABS: Basophils # (auto) 0.01 K/uL (0-0.2); Basophils % (auto) 0.1 %; Hematocrit (blood only) 36.3 % (42-52); Hemoglobin 11.7 g/dL (14.0-18.0); Immature Granulocytes # (auto) 0.02 K/uL (0.00-0.02); Immature Granulocytes % (auto) 0.2 %; Mean Corpuscular Hemoglobin 27.9 pg (25-34); Mean Corpuscular Hgb Conc 32.2 g/dL (32-36); Mean Corpuscular Volume 86.6 fL (80-100); Mean Platelet Volume 10.3 fL (7.4-10.4); Monocytes # (auto) 0.46 K/uL (0.11-0.59); Monocytes % (auto) 4.6 %; Neutrophils # (auto) 9.13 K/uL (1.4-6.5); Neutrophils % (auto) 92.1 %; Platelet Count 160 K/uL (130-400); RDW Coefficient of Variation 15.5 % (11.5-14.5); RDW Standard Deviation 49.9 fL (36.4-46.3); Red Blood Count 4.19 M/uL (4.7-6.1); White Blood Count 9.92 K/uL (4.8-10.8)
[2021-04-09 15:58] LABS: Appearance Urine Clear (Clear); Bacteria Urine Automated Negative (Negative); Bilirubin Urine Negative (Negative); Blood Urine Negative (Negative); Cast Urine Automated 0 /lpf (0-5); Color Urine Yellow; Epithelial Cell Urine Auto >30 /lpf (0-5); Glucose Urine UA 3+ (Negative); Ketones Urine Negative (Negative); Leukocyte Esterase Urine Negative (Negative); Nitrite Urine Negative (Negative); Protein Urine 2+ (Negative); RBC Urine Automated 0-4 /hpf (0-4); Specific Gravity Urine 1.014 (1.000-1.030); Urobilinogen Urine Negative (Negative); pH Urine 5.5 (4.5-7.5)
[2021-04-09 16:32] LABS: Albumin Globulin Ratio 0.8 (0.9-2); Albumin Level 3.5 gm/dl (3.4-5.0); BUN Creatinine Ratio 18.8 (10-20); Bilirubin,Total 0.5 mg/dl (0.2-1); Calcium 9.4 mg/dl (8.5-10.1); Creatinine Clr Calc Pharmacy 22.3 ml/min; Est GFR (African American) 17.6 ml/min; Est GFR (Non-African American) 15.1 ml/min; Globulin 4.3 gm/dl (2.5-4.0); Potassium 4.4 mmol/L (3.5-5.1); Total Protein 7.8 gm/dl (6.4-8.2)
[2021-04-09] MEDS ORDERED: NovoLIN-R INSULIN PER UNIT CHARGE IV STA (17:54)
[2021-04-09] MEDS ORDERED: SODIUM CHLORIDE 0.9% 1000ML 500 ML IV ONE (17:54)
[2021-04-09] MEDS ORDERED: ALBUT/IPRATROP 3MG/0.5MG NEB 3 ML VIAL NEB STA (17:56)
--- NOTE | 2021-04-09 18:11 | Emergency Department Note ---
Impression & Plan Acute exacerbation of chronic obstructive pulmonary disease, Acute hyperglycemia, Abnormal LFTs, Elevated troponin I level ED Provider Note NAME: NIRANJAN VILLALTA AGE: 66 SEX: M : 1955 ARRIVES VIA: Walk-In INFORMANT: Patient, ED PROVIDER(S): Javier Zepeda DO � CHIEF COMPLAINT: Elevated blood sugar HPI: The patient is a 66-year-old male who presented to emergency department for an evaluation of elevated blood sugar. The patient was seen in our facility 2 days previously for shortness of breath. At that time he was diagnosed with COPD. He was started on a steroid as well as antibiotics. He was also given a dose of Lasix while he was in the emergency department. The patient has been using all his medications as prescribed including an outpatient steroid. He is noticed that his blood sugars been going up as well as his blood pressure. He denies having any nausea or vomiting. He continues to have cough and sign ificant difficulty breathing. The patient denies having any lower extremity swelling worse than usual. He denies having any vomiting. He is not seen his family doctor recently for the symptoms. He did have a Covid swab in the emergency department and at that time it was found to be negative. The patient has had similar symptoms in the past. He presented with a family member who states that he is also been confused recently. ROS: See above HPI for pertinent positives & negatives. A total of 10 systems reviewed and were otherwise negative. PAST MEDICAL HISTORY: See Below PAST SURGICAL HISTORY: See Below FAMILY HISTORY: See Below SOCIAL HISTORY: See Below HOME MEDICATIONS: See Below ALLERGIES: See Below VITALS: See Below PHYSICAL EXAMINATION: GENERAL: The patient is awake and alert. He is somewhat anxious appearing but overall comfortable. EYES: The conjunctivae are clear. The pupils are round and reactive. EARS, NOSE, MOUTH AND THROAT: The nose is without any evidence of any deformity. Mucous membranes are moist. Tongue is midline. NECK: The neck is nontender and supple. RESPIRATORY: Diminished breath sounds are noted throughout. Significant co nversational dyspnea was appreciated. CARDIOVASCULAR: Regular rate and rhythm noted there no murmurs rubs or gallops normal S1 normal S2. GASTROINTESTINAL: The abdomen is soft. Abdomen is nontender. MUSCULOSKELETAL/EXTREMITIES: There is no evidence of gross deformity full range of motion is noted in the hips and shoulders. SKIN: Skin was warm and dry. There was no significant pedal edema. NEUROLOGIC: Patient is awake alert and oriented x3 MEDICAL DECISION MAKING: The patient is a 66-year-old male who presented to emergency department for an evaluation of difficulty breathing. The patient has a history of COPD as well as CHF. He was seen in our facility recently for similar complaints. At that time he was started on a steroid as well as an oral antibiotic. The patient started to worsen and his blood sugar started to go up. He was also noted to have elevation in his blood pressure compared to his baseline. The patient presented to the emergency department with his family member. I discussed the patient's laboratory and radiographic studies with him. He was treated with IV fluids and IV insulin in the emergency department. Given the patient's laboratory and radiographic findings he may require further inpatient management to determine the best course of treatment given his age and comorbidities. For this reason I discussed his case with the on-call [facility] hospitalist. They have agreed to evaluate the patient in the emergency department for further management and disposition. Triage Nursing notes reviewed. Prior medical records reviewed Vital Signs: reviewed and remarkable for elevated blood pressure. Differential diagnosis: Reactive airway disease, pneumonia, pneumothorax, COPD, CHF, infections, cardiac ischemia, pulmonary embolism, musculoskeletal, gastrointestinal, as well as other pathologies. ER treatment provided: See below Diagnostics interpreted by me: ECG: EKG was obtained in the emergency department. My interpretation is ventricular paced rhythm at 66 bpm. No [place] beats were noted. PVCs were noted the patient this was compared to a tracing from April 072020. No changes were noted. Cardiac Monitoring: An order was placed for continuous cardiac monitoring. The monitor shows a rate of 80 bpm with paced rhythm. Laboratory studies: As stated above and show below. Imaging studies: See below Consultation(s): I discussed this case with Dr. Tyler. He will evaluate the patient in the emergency department. Past Med/Surg History Medical History Aortic stenosis Severe aortic stenosis vs pseudo aortic stenosis due to low output per cardio note from 12/2019 ECHO Asthma Atrial fibrillation on warfarin CAD (coronary artery disease) "nonobstructive" Chronic anemia Chronic kidney disease Stage 4, under surveillance by Dr. Mcdermott (no dialysis at this time) Chronic systolic (congestive) heart failure COPD (chronic obstructive pulmonary disease) Diabetic neuropathy DM type 2 (diabetes mellitus, type 2) IDDM Dyslipidemia Gall stones GERD (gastroesophageal reflux disease) History of COVID-19 Dx 08/05/20(hospitalized at [facility]) > symptoms at time of cough, SOB, generalized weakness, n/v/d, loss of taste/smell > "resolved" History of multiple pulmonary nodules Hypertension LBBB (left bundle branch block) Nonischemic cardiomyopathy S/p BIV AICD in place; follows with Dr. Graves Presence of combination internal cardiac defibrillator (ICD) and pacemaker Implanted 5+ years ago, [employer], last check 07/2020 Pulmonary HTN PVD (peripheral vascular disease) Sleep apnea + nocturnal hypoxia > BIPAP + 2L O2 HS Stroke 11/2019 > residual speech difficulty/short term memory issues Surgical History H/O cardiac catheterization Non nonobstructive CAD on 2016 cardiac cath H/O total adrenalectomy Left (25 years ago) History of colonoscopy History of esophagogastroduodenoscopy (EGD) S/P debridement (01/08/21) Left Lower Extremity Medial and Lateral excisional Debridement ( greater than 20 sq. 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 Feels Safe at Home: Yes Assistive Devices: None Allergies Allergies Allergy/AdvReac Type Severity Reaction Status Date / Time No Known Allergies Allergy Verified 04/09/21 18:33 Home Meds Home Medications Medication Instructions Recorded Confirmed aspirin 81 mg tablet,delayed 81 mg PO QAM 02/05/18 04/09/21 release cholecalciferol (vitamin D3) 50 2,000 unit PO Q OTHER DAY 02/05/18 04/09/21 mcg (2,000 unit) capsule (Vitamin D3) pantoprazole 40 mg tablet,delayed 40 mg PO QAM 02/05/18 04/09/21 release (Protonix) gabapentin 100 mg capsule 100 mg PO TIDM 05/14/18 04/09/21 albuterol sulfate 90 mcg/actuation 2 puff INHALATION Q4H PRN 08/01/18 04/09/21 aerosol inhaler (ProAir HFA) fluticasone propionate 50 2 spray INTRANASAL DAILY PRN 08/01/18 04/09/21 mcg/actuation nasal spray,suspension (Flonase Allergy Relief) ipratropium 0.5 mg-albuterol 3 mg 3 ml INHALATION QID PRN 08/01/18 04/09/21 (2.5 mg base)/3 mL nebulization soln fluticasone furoate 100 1 inh INHALATION QAM 03/02/20 04/09/21 mcg-vilanterol 25 mcg/dose inhalation powder (Breo Ellipta) baclofen 10 mg tablet 10 mg PO HS PRN 08/05/20 04/09/21 amlodipine 2.5 mg tablet 2.5 mg PO QAM 09/17/20 04/09/21 atorvastatin 80 mg tablet 80 mg PO QPM 09/17/20 04/09/21 insulin glargine 100 unit/mL (3 36 unit SUBCUT BID ml 01/17/21 04/09/21 mL) subcutaneous pen (Lantus Solostar U-100 Insulin) insulin lispro 100 unit/mL 25 unit SUBCUT WM 01/17/21 04/09/21 subcutaneous pen (Humalog KwikPen (U-100) Insulin) apixaban 2.5 mg tablet 2.5 mg PO BID 03/01/21 04/09/21 digoxin 125 mcg (0.125 mg) tablet 125 mcg PO .DAILY AT NOON tab 03/01/21 04/09/21 hydralazine 25 mg tablet 75 mg PO TID 04/07/21 04/09/21 hydrocodone 5 mg-acetaminophen 325 1 tab PO Q4H PRN 04/07/21 04/09/21 mg tablet potassium chloride 10 mEq 10 meq PO QAM 04/07/21 04/09/21 tablet,extended release(part/cryst) (Klor-Con M) Previous Rx's Medication Instructions Recorded metoprolol succinate 100 mg 100 mg PO BID #60 tab 08/14/20 tablet,extended release 24 hr (Toprol XL) torsemide 20 mg tablet 40 mg PO UD #90 tab 01/10/21 doxycycline hyclate 100 mg tablet 100 mg PO BID 7 Days #14 tab 04/07/21 prednisone 20 mg tablet 20 mg PO BID 5 Days #10 tab 04/07/21 Results & Data (ED) Vital Signs Vital Signs - 24 hr 04/09/21 15:30 04/09/21 17:40 Temperature 37.1 C Temperature Source Temporal Artery Scan Pulse Rate [Apical] 88 Respiratory Rate 18 22 Blood Pressure 171/94 H Blood Pressure [Left Arm] 179/106 H Blood Pressure Mean 119 Blood Pressure Mean [Left Arm] 130 Pulse Oximetry 96 95 Oxygen Delivery Method Room Air Room Air Sepsis Recent Fever Within 48 Hours No Sepsis New/Unexplained Change in Mental Status N/A Sepsis Action Taken by Nursing No Action Required Home Medications Current Medication List: was personally reviewed by me Laboratory Data Attestation: I reviewed the patient's lab results. Result diagrams: 04/09/21 15:40 04/09/21 15:40 Lab Results 04/09/21 04/09/21 04/09/21 Range/Units 15:32 15:40 15:40 WBC 9.92 (4.8-10.8) K/uL RBC 4.19 L (4.7-6.1) M/uL Hgb 11.7 L (14.0-18.0) g/dL Hct 36.3 L (42-52) % MCV 86.6 (80-100) fL MCH 27.9 (25-34) pg MCHC 32.2 (32-36) g/dL RDW Std Deviation 49.9 H (36.4-46.3) fL RDW Coeff of Joey 15.5 H (11.5-14.5) % Plt Count 160 (130-400) K/uL MPV 10.3 (7.4-10.4) fL Immature Gran % (Auto) 0.2 % Neut % (Auto) 92.1 % Lymph % (Auto) 3.0 % [place] % (Auto) 4.6 % Eos % (Auto) 0.0 % Baso % (Auto) 0.1 % Neut # (Auto) 9.13 H (1.4-6.5) K/uL Lymph # (Auto) 0.30 L (1.2-3.4) K/uL [place] # (Auto) 0.46 (0.11-0.59) K/uL Eos # (Auto) 0.00 (0-0.5) K/uL Baso # (Auto) 0.01 (0-0.2) K/uL Immature Gran # (Auto) 0.02 (0.00-0.02) K/uL PT (9.0-12.0) Seconds INR (0.9-1.1) APTT (21.0-31.0) Seconds PTT Ratio VBG pH (7.36-7.41) VBG pCO2 (38-50) mmHg VBG pO2 mmHg VBG HCO3 mmol/L VBG O2 Saturation % VBG Base Excess mEq/L Barometric Pressure mm/Hg Sodium 133 L (136-145) mmol/L Potassium 4.4 (3.5-5.1) mmol/L Chloride 96 L (98-107) mmol/L Carbon Dioxide 25 (21-32) mmol/L Anion Gap 12.0 H (3-11) BUN 73 H (7-18) mg/dl Creatinine 3.86 H (0.6-1.4) mg/dl Est Cr Clr Drug Dosing 22.3 ml/min Est GFR ( Amer) 17.6 ml/min Est GFR (Non-Af Amer) 15.1 ml/min BUN/Creatinine Ratio 18.8 (10-20) Glucose 551 H* (70-99) mg/dl POC Glucose 534 H* (70-99) mg/dl Calcium 9.4 (8.5-10.1) mg/dl Magnesium (1.8-2.4) mg/dl Total Bilirubin 0.5 (0.2-1) mg/dl AST 118 H (15-37) U/L ALT 243 H (12-78) Alkaline Phosphatase 295 H D (45-117) U/L Troponin I 0.096 H* (0-0.045) ng/ml Total Protein 7.8 (6.4-8.2) gm/dl Albumin 3.5 (3.4-5.0) gm/dl Globulin 4.3 H (2.5-4.0) gm/dl Albumin/Globulin Ratio 0.8 L (0.9-2) Beta-Hydroxybutyric Acd (0.2-2.81) mg/dl Specimen Hemolysis Urine Color Urine Appearance (Clear) Urine pH (4.5-7.5) Ur Specific Interior (1.000-1.030) Urine Protein (Negative) Urine Glucose (UA) (Negative) Urine Ketones (Negative) Urine Blood (Negative) Urine Nitrite (Negative) Urine Bilirubin (Negative) Urine Urobilinogen (Negative) Ur Leukocyte Esterase (Negative) Urine WBC (Auto) (0-5) /hpf Urine RBC (Auto) (0-4) /hpf U Hyaline Cast (Auto) (0-5) /lpf U Epithel Cells (Auto) (0-5) /lpf Urine Bacteria (Auto) (Negative) Digoxin (0.8-2.0) ng/ml SARS-CoV-2 (PCR) (Negative) Influenza Type A (PCR) (Neg) Influenza Type B (PCR) (Neg) RSV (RT-PCR) (Neg) 04/09/21 04/09/21 04/09/21 Range/Units 15:40 15:40 15:47 WBC (4.8-10.8) K/uL RBC (4.7-6.1) M/uL Hgb (14.0-18.0) g/dL Hct (42-52) % MCV (80-100) fL MCH (25-34) pg MCHC (32-36) g/dL RDW Std Deviation (36.4-46.3) fL RDW Coeff of Joey (11.5-14.5) % Plt Count (130-400) K/uL MPV (7.4-10.4) fL Immature Gran % (Auto) % Neut % (Auto) % Lymph % (Auto) % [place] % (Auto) % Eos % (Auto) % Baso % (Auto) % Neut # (Auto) (1.4-6.5) K/uL Lymph # (Auto) (1.2-3.4) K/uL [place] # (Auto) (0.11-0.59) K/uL Eos # (Auto) (0-0.5) K/uL Baso # (Auto) (0-0.2) K/uL Immature Gran # (Auto) (0.00-0.02) K/uL PT 10.5 (9.0-12.0) Seconds INR 1.0 (0.9-1.1) APTT 24.5 (21.0-31.0) Seconds PTT Ratio 0.9 VBG pH (7.36-7.41) VBG pCO2 (38-50) mmHg VBG pO2 mmHg VBG HCO3 mmol/L VBG O2 Saturation % VBG Base Excess mEq/L Barometric Pressure mm/Hg Sodium (136-145) mmol/L Potassium (3.5-5.1) mmol/L Chloride (98-107) mmol/L Carbon Dioxide (21-32) mmol/L Anion Gap (3-11) BUN (7-18) mg/dl Creatinine (0.6-1.4) mg/dl Est Cr Clr Drug Dosing ml/min Est GFR ( Amer) ml/min Est GFR (Non-Af Amer) ml/min BUN/Creatinine Ratio (10-20) Glucose (70-99) mg/dl POC Glucose (70-99) mg/dl Calcium (8.5-10.1) mg/dl Magnesium (1.8-2.4) mg/dl Total Bilirubin (0.2-1) mg/dl AST (15-37) U/L ALT (12-78) Alkaline Phosphatase (45-117) U/L Troponin I (0-0.045) ng/ml Total Protein (6.4-8.2) gm/dl Albumin (3.4-5.0) gm/dl Globulin (2.5-4.0) gm/dl Albumin/Globulin Ratio (0.9-2) Beta-Hydroxybutyric Acd Cancelled (0.2-2.81) mg/dl Specimen Hemolysis Urine Color Yellow Urine Appearance Clear (Clear) Urine pH 5.5 (4.5-7.5) Ur Specific Interior 1.014 (1.000-1.030) Urine Protein 2+ H (Negative) Urine Glucose (UA) 3+ H (Negative) Urine Ketones Negative (Negative) Urine Blood Negative (Negative) Urine Nitrite Negative (Negative) Urine Bilirubin Negative (Negative) Urine Urobilinogen Negative (Negative) Ur Leukocyte Esterase Negative (Negative) Urine WBC (Auto) 1-5 (0-5) /hpf Urine RBC (Auto) 0-4 (0-4) /hpf U Hyaline Cast (Auto) 0 (0-5) /lpf U Epithel Cells (Auto) >30 H (0-5) /lpf Urine Bacteria (Auto) Negative (Negative) Digoxin (0.8-2.0) ng/ml SARS-CoV-2 (PCR) (Negative) Influenza Type A (PCR) (Neg) Influenza Type B (PCR) (Neg) RSV (RT-PCR) (Neg) 04/09/21 04/09/21 04/09/21 Range/Units 15:47 18:05 18:11 WBC (4.8-10.8) K/uL RBC (4.7-6.1) M/uL Hgb (14.0-18.0) g/dL Hct (42-52) % MCV (80-100) fL MCH (25-34) pg MCHC (32-36) g/dL RDW Std Deviation (36.4-46.3) fL RDW Coeff of Joey (11.5-14.5) % Plt Count (130-400) K/uL MPV (7.4-10.4) fL Immature Gran % (Auto) % Neut % (Auto) % Lymph % (Auto) % [place] % (Auto) % Eos % (Auto) % Baso % (Auto) % Neut # (Auto) (1.4-6.5) K/uL Lymph # (Auto) (1.2-3.4) K/uL [place] # (Auto) (0.11-0.59) K/uL Eos # (Auto) (0-0.5) K/uL Baso # (Auto) (0-0.2) K/uL Immature Gran # (Auto) (0.00-0.02) K/uL PT (9.0-12.0) Seconds INR (0.9-1.1) APTT (21.0-31.0) Seconds PTT Ratio VBG pH (7.36-7.41) VBG pCO2 (38-50) mmHg VBG pO2 mmHg VBG HCO3 mmol/L VBG O2 Saturation % VBG Base Excess mEq/L Barometric Pressure mm/Hg Sodium (136-145) mmol/L Potassium (3.5-5.1) mmol/L Chloride (98-107) mmol/L Carbon Dioxide (21-32) mmol/L Anion Gap (3-11) BUN (7-18) mg/dl Creatinine (0.6-1.4) mg/dl Est Cr Clr Drug Dosing ml/min Est GFR ( Amer) ml/min Est GFR (Non-Af Amer) ml/min BUN/Creatinine Ratio (10-20) Glucose (70-99) mg/dl POC Glucose (70-99) mg/dl Calcium (8.5-10.1) mg/dl Magnesium (1.8-2.4) mg/dl Total Bilirubin (0.2-1) mg/dl AST (15-37) U/L ALT (12-78) Alkaline Phosphatase (45-117) U/L Troponin I Cancelled (0-0.045) ng/ml Total Protein (6.4-8.2) gm/dl Albumin (3.4-5.0) gm/dl Globulin (2.5-4.0) gm/dl Albumin/Globulin Ratio (0.9-2) Beta-Hydroxybutyric Acd (0.2-2.81) mg/dl Specimen Hemolysis Urine Color Urine Appearance (Clear) Urine pH (4.5-7.5) Ur Specific Interior (1.000-1.030) Urine Protein (Negative) Urine Glucose (UA) (Negative) Urine Ketones (Negative) Urine Blood (Negative) Urine Nitrite (Negative) Urine Bilirubin (Negative) Urine Urobilinogen (Negative) Ur Leukocyte Esterase (Negative) Urine WBC (Auto) (0-5) /hpf Urine RBC (Auto) (0-4) /hpf U Hyaline Cast (Auto) (0-5) /lpf U Epithel Cells (Auto) (0-5) /lpf Urine Bacteria (Auto) (Negative) Digoxin 1.6 (0.8-2.0) ng/ml SARS-CoV-2 (PCR) NEGATIVE (Negative) Influenza Type A (PCR) Negative (Neg) Influenza Type B (PCR) Negative (Neg) RSV (RT-PCR) Negative (Neg) 04/09/21 04/09/21 04/09/21 Range/Units 19:08 19:08 19:08 WBC (4.8-10.8) K/uL RBC (4.7-6.1) M/uL Hgb (14.0-18.0) g/dL Hct (42-52) % MCV (80-100) fL MCH (25-34) pg MCHC (32-36) g/dL RDW Std Deviation (36.4-46.3) fL RDW Coeff of Joey (11.5-14.5) % Plt Count (130-400) K/uL MPV (7.4-10.4) fL Immature Gran % (Auto) % Neut % (Auto) % Lymph % (Auto) % [place] % (Auto) % Eos % (Auto) % Baso % (Auto) % Neut # (Auto) (1.4-6.5) K/uL Lymph # (Auto) (1.2-3.4) K/uL [place] # (Auto) (0.11-0.59) K/uL Eos # (Auto) (0-0.5) K/uL Baso # (Auto) (0-0.2) K/uL Immature Gran # (Auto) (0.00-0.02) K/uL PT (9.0-12.0) Seconds INR (0.9-1.1) APTT (21.0-31.0) Seconds PTT Ratio VBG pH 7.35 L (7.36-7.41) VBG pCO2 48 (38-50) mmHg VBG pO2 39 mmHg VBG HCO3 26 mmol/L VBG O2 Saturation 68.2 % VBG Base Excess 0.2 mEq/L Barometric Pressure 728.2 mm/Hg Sodium (136-145) mmol/L Potassium (3.5-5.1) mmol/L Chloride (98-107) mmol/L Carbon Dioxide (21-32) mmol/L Anion Gap (3-11) BUN (7-18) mg/dl Creatinine (0.6-1.4) mg/dl Est Cr Clr Drug Dosing ml/min Est GFR ( Amer) ml/min Est GFR (Non-Af Amer) ml/min BUN/Creatinine Ratio (10-20) Glucose (70-99) mg/dl POC Glucose (70-99) mg/dl Calcium (8.5-10.1) mg/dl Magnesium 2.2 Cancelled (1.8-2.4) mg/dl Total Bilirubin (0.2-1) mg/dl AST (15-37) U/L ALT (12-78) Alkaline Phosphatase (45-117) U/L Troponin I (0-0.045) ng/ml Total Protein (6.4-8.2) gm/dl Albumin (3.4-5.0) gm/dl Globulin (2.5-4.0) gm/dl Albumin/Globulin Ratio (0.9-2) Beta-Hydroxybutyric Acd 1.04 (0.2-2.81) mg/dl Specimen Hemolysis Urine Color Urine Appearance (Clear) Urine pH (4.5-7.5) Ur Specific Interior (1.000-1.030) Urine Protein (Negative) Urine Glucose (UA) (Negative) Urine Ketones (Negative) Urine Blood (Negative) Urine Nitrite (Negative) Urine Bilirubin (Negative) Urine Urobilinogen (Negative) Ur Leukocyte Esterase (Negative) Urine WBC (Auto) (0-5) /hpf Urine RBC (Auto) (0-4) /hpf U Hyaline Cast (Auto) (0-5) /lpf U Epithel Cells (Auto) (0-5) /lpf Urine Bacteria (Auto) (Negative) Digoxin (0.8-2.0) ng/ml SARS-CoV-2 (PCR) (Negative) Influenza Type A (PCR) (Neg) Influenza Type B (PCR) (Neg) RSV (RT-PCR) (Neg) 04/09/21 Range/Units 20:17 WBC (4.8-10.8) K/uL RBC (4.7-6.1) M/uL Hgb (14.0-18.0) g/dL Hct (42-52) % MCV (80-100) fL MCH (25-34) pg MCHC (32-36) g/dL RDW Std Deviation (36.4-46.3) fL RDW Coeff of Joey (11.5-14.5) % Plt Count (130-400) K/uL MPV (7.4-10.4) fL Immature Gran % (Auto) % Neut % (Auto) % Lymph % (Auto) % [place] % (Auto) % Eos % (Auto) % Baso % (Auto) % Neut # (Auto) (1.4-6.5) K/uL Lymph # (Auto) (1.2-3.4) K/uL [place] # (Auto) (0.11-0.59) K/uL Eos # (Auto) (0-0.5) K/uL Baso # (Auto) (0-0.2) K/uL Immature Gran # (Auto) (0.00-0.02) K/uL PT (9.0-12.0) Seconds INR (0.9-1.1) APTT (21.0-31.0) Seconds PTT Ratio VBG pH (7.36-7.41) VBG pCO2 (38-50) mmHg VBG pO2 mmHg VBG HCO3 mmol/L VBG O2 Saturation % VBG Base Excess mEq/L Barometric Pressure mm/Hg Sodium (136-145) mmol/L Potassium (3.5-5.1) mmol/L Chloride (98-107) mmol/L Carbon Dioxide (21-32) mmol/L Anion Gap (3-11) BUN (7-18) mg/dl Creatinine (0.6-1.4) mg/dl Est Cr Clr Drug Dosing ml/min Est GFR ( Amer) ml/min Est GFR (Non-Af Amer) ml/min BUN/Creatinine Ratio (10-20) Glucose (70-99) mg/dl POC Glucose 405 H* (70-99) mg/dl Calcium (8.5-10.1) mg/dl Magnesium (1.8-2.4) mg/dl Total Bilirubin (0.2-1) mg/dl AST (15-37) U/L ALT (12-78) Alkaline Phosphatase (45-117) U/L Troponin I (0-0.045) ng/ml Total Protein (6.4-8.2) gm/dl Albumin (3.4-5.0) gm/dl Globulin (2.5-4.0) gm/dl Albumin/Globulin Ratio (0.9-2) Beta-Hydroxybutyric Acd (0.2-2.81) mg/dl Specimen Hemolysis Urine Color Urine Appearance (Clear) Urine pH (4.5-7.5) Ur Specific Interior (1.000-1.030) Urine Protein (Negative) Urine Glucose (UA) (Negative) Urine Ketones (Negative) Urine Blood (Negative) Urine Nitrite (Negative) Urine Bilirubin (Negative) Urine Urobilinogen (Negative) Ur Leukocyte Esterase (Negative) Urine WBC (Auto) (0-5) /hpf Urine RBC (Auto) (0-4) /hpf U Hyaline Cast (Auto) (0-5) /lpf U Epithel Cells (Auto) (0-5) /lpf Urine Bacteria (Auto) (Negative) Digoxin (0.8-2.0) ng/ml SARS-CoV-2 (PCR) (Negative) Influenza Type A (PCR) (Neg) Influenza Type B (PCR) (Neg) RSV (RT-PCR) (Neg) Administered Medications Sodium Chloride (Nss 1000ml) 1,000 mls @ 50 mls/hr IV .Q20H ONE Stop: 04/10/21 17:09 Last Admin: 04/09/21 21:31 Dose: 50 mls/hr Documented by: [id number] Sodium Chloride (Nss) 500 mls @ 500 mls/hr IV .Q1H ONE Stop: 04/09/21 22:09 Last Admin: 04/09/21 21:32 Dose: 500 mls/hr Documented by: [id number] Discontinued Medications Albuterol (Albut/Ipratrop 3mg/0.5mg Neb 3 Ml Vial) 3 ml NEB NOW STA; Protocol Stop: 04/09/21 17:57 Last Admin: 04/09/21 18:15 Dose: 3 ml Documented by: [id number] Sodium Chloride (Nss 1000ml) 500 mls @ 999 mls/hr IV .Q31M ONE Stop: 04/09/21 18:24 Last Infusion: 04/09/21 19:31 Dose: 0 mls/hr Documented by: [id number] Admin: 04/09/21 18:15 Dose: 999 mls/hr Documented by: [id number] Insulin Glargine (Insulin Glargine Solostar 100 Units/Ml 3 Ml Pen) 40 units SC ONE ONE Stop: 04/09/21 21:31 Last Admin: 04/09/21 21:31 Dose: 40 units Documented by: [id number] Cosigned by: [id number] Insulin Human Regular (Novolin-R Insulin Per Unit Charge) 10 units IV NOW STA Stop: 04/09/21 17:55 Last Admin: 04/09/21 18:16 Dose: 10 units Documented by: [id number] Cosigned by: [id number] Metoprolol Succinate (Metoprolol Succ 50mg Ext Rel Tab) 100 mg PO ONE ONE Stop: 04/09/21 21:31 Last Admin: 04/09/21 21:31 Dose: 100 mg Documented by: [id number] Imaging Data Radiologist's Impression: Chest X-Ray 04/09/21 17:53 XR chest 1V portable CLINICAL HISTORY: cough COMPARISON STUDY: Chest CT September 17, 2020. Chest radiograph April 07, 2021. FINDINGS: Lung volumes are normal. There is no pneumothorax or pleural effusion. Cardiomegaly is unchanged. Left subclavian biventricular pacer/AICD is in place. The appearance of the chest is unchanged. IMPRESSION: No acute cardiopulmonary findings. No change in appearance of the chest. ACT 112: Negative or not required by law. Electronically signed by: Balwinder Juarez M.D. 04/09/2021 7:10 PM Discharge Plan Visit Data Chief Complaint: Hyperglycemia Stated Complaint: HERE 04/07, [facility] Provider: Javier Zepeda Discharge Problem: Acute exacerbation of chronic obstructive pulmonary disease, Acute hyperglycemia, Abnormal LFTs, Elevated troponin I level Patient Disposition: Being Evaluated by Hospitalist Forms Stand Alone Forms: My Novel Prescriptions Prescriptions: No Action Lantus Solostar U-100 Insulin 100 unit/mL (3 mL) insulin pen 36 unit SUBCUT BID RF: 0 apixaban 2.5 mg tablet 2.5 mg PO BID RF: 0 aspirin 81 mg Tablet,Delayed Release (Dr/Ec) 81 mg PO QAM RF: 0 pantoprazole [Protonix] 40 mg Tablet,Delayed Release (Dr/Ec) 40 mg PO QAM RF: 0 cholecalciferol (vitamin D3) [Vitamin D3] 2,000 unit Capsule 2,000 unit PO Q OTHER DAY RF: 0 Breo Ellipta 100-25 mcg/dose Blister With Device 1 inh INHALATION QAM RF: 0 gabapentin 100 mg Capsule 100 mg PO TIDM RF: 0 ipratropium-albuterol 0.5 mg-3 mg(2.5 mg base)/3 mL Solution For Nebulization 3 ml INHALATION QID PRN (Reason: Shortness Of Breath Or Wheezing) RF: 0 albuterol sulfate [ProAir HFA] 90 mcg/actuation Hfa Aerosol Inhaler 2 puff INHALATION Q4H PRN (Reason: Shortness Of Breath Or Wheezing) RF: 0 fluticasone propionate [Flonase Allergy Relief] 50 mcg/actuation [place],Suspension 2 spray INTRANASAL DAILY PRN (Reason: Nasal Congestion) RF: 0 insulin lispro [Humalog KwikPen Insulin] 100 unit/mL insulin pen 25 unit subcut WM RF: 0 atorvastatin 80 mg tablet 80 mg PO QPM RF: 0 amlodipine 2.5 mg tablet 2.5 mg PO QAM RF: 0 torsemide 20 mg tablet 40 mg PO UD Qty: 90 RF: 2 baclofen 10 mg tablet 10 mg PO HS PRN (Reason: Cramps) RF: 0 metoprolol succinate [Toprol XL] 100 mg Tablet Extended Release 24 Hr 100 mg PO BID Qty: 60 RF: 1 digoxin 125 mcg (0.125 mg) tablet 125 mcg PO .DAILY AT NOON RF: 0 hydrocodone-acetaminophen 5-325 mg tablet 1 tab PO Q4H PRN (Reason: Pain) RF: 0 hydralazine 25 mg tablet 75 mg PO TID RF: 0 potassium chloride [Klor-Con M10] 10 mEq tablet,ER particles/crystals 10 meq PO QAM RF: 0 prednisone 20 mg tablet 20 mg PO BID 5 Days Qty: 10 RF: 0 doxycycline hyclate 100 mg tablet 100 mg PO BID 7 Days Qty: 14 RF: 0 Referrals Referrals: Mirlande Melton MD [Primary Care Provider] -
[2021-04-09 18:14] LABS: Partial Thromboplastin Ratio 0.9; Partial Thromboplastin Time 24.5 Seconds (21.0-31.0); Prothrombin Time 10.5 Seconds (9.0-12.0)
[2021-04-09 18:41] LABS: Troponin I 0.096 ng/ml (0-0.045)
[2021-04-09 18:55] LABS: Influenza A virus by PCR Negative (Neg); Influenza B virus by PCR Negative (Neg); RSV by PCR Negative (Neg); SARS CoV2 RNA(COVID-19) InHosp NEGATIVE (Negative)
--- NOTE | 2021-04-09 19:12 | XRay Report ---
XR chest 1V portable CLINICAL HISTORY: cough COMPARISON STUDY: Chest CT September 17, 2020. Chest radiograph April 07, 2021. FINDINGS: Lung volumes are normal. There is no pneumothorax or pleural effusion. Cardiomegaly is unch anged. Left subclavian biventricular pacer/AICD is in place. The appearance of the chest is unchanged . IMPRESSION: No acute cardiopulmonary findings. No change in appearance of the chest. ACT 112: Negative or not required by law. Electronically signed by: Balwinder Juarez M.D. 04/09/2021 7:10 PM
[2021-04-09 19:45] LABS: Beta-Hydroxybutyrate 1.04 mg/dl (0.2-2.81)
[2021-04-09 19:48] LABS: Base Excess VBG 0.2 mEq/L; Oxygen Saturation VBG 68.2 %; pH VBG 7.35 (7.36-7.41)
[2021-04-09] MEDS ORDERED: SODIUM CHLORIDE 0.9% 500 ML IV ONE (21:10)
[2021-04-09] MEDS ORDERED: SODIUM CHLORIDE 0.9% 1000ML 1,000 ML IV ONE (21:10)
[2021-04-09 21:24] LABS: Magnesium 2.2 mg/dl (1.8-2.4)
[2021-04-09] MEDS ORDERED: INSULIN GLARGINE SOLOSTAR 100 UNITS/ML 3 ML PEN SC ONE (21:30)
[2021-04-09] MEDS ORDERED: METOPROLOL SUCC 50MG EXT REL TAB PO ONE (21:30)
--- NOTE | 2021-04-09 21:39 | History & Physical Report ---
Date of Service April 09, 2021 Assessment & Plan (1) Asymptomatic hypertensive urgency: Plan: Secondary to steroid Rx for COPD exacerbation/bronchitis Troponin elevation secondary to above in the setting of ARF on CKD Hyperglycemic crisis secondary to steroid Rx History poorly controlled DM2 insulin requiring, suboptimal control as above recent hemoglobin A1c of 9.21 February 2021 chronic systolic heart failure secondary to nonischemic cardiomyopathy, patient on the dry side chronic LBBB hx nonocclusive CAD/PVD as per records/hx CVA A. fib, paced rhythm on on Eliquis valvular heart disease (severe aortic stenosis, mild MR/TR on recent TTE), surgery contemplated for aortic stenosis once chronic left leg wound healed. Asymptomatic transaminitis chronic anemia, hemoglobin at baseline History medication noncompliance as per records past tobacco abuse PCU Titrate home BP meds Follow troponin Monitor creatinine response to gentle IV hydration Hold home diuretic until creatinine back to baseline Renal ultrasound, Nephrology consult if kidney function does not improve. Short course prednisone, doxycycline course for complicated bronchitis. Basal insulin, ISS BG goal 1 10-1 40, carb count coverage May benefit from Pharmacy glycemic control consultation. Wound care nurse consult Re: Chronic leg wounds Follow LFTs, hold statin for now, liver ultrasound if with worsening DVT prophylaxis.� Eliquis Full code Text document was generated using [employer] voice recognition software. It may contain grammatical or spelling errors. Kindly contact undersigned for clarification of any documentation item in question. History of Present Illness Chief Complaint: High sugars Primary Care Provider: Mirlande Pickett MD History obtained from patient, , and records. Medical history significant for chronic systolic heart failure secondary to nonischemic cardiomyopathy (EF of 30-34%, TTE 2020) status post ICD, chronic LBBB, hx nonocclusive CAD, PVD as per records, hx CVA, A. 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 Mild to moderate PAD on work-up. Patient not a candidate for endovascular intervention secondary to CKD asked for vascular surgery. Wound CS growing gram-negative rods. Patient completed antibiotic course. Last week, patient noted junky cough symptoms associated with chest pain on coughing and some shortness of breath. No known recent COVID-19 contacts. Josefina elmore completed COVID-19 vaccination. Patient seen at the ER 2 days ago. Patient prescribed prednisone and doxycycline course for COPD exacerbation/bronchitis. Persistent cough symptoms at home, denies aspiration. Blood sugar 500s at home. Usual shortness of breath. Usual chest pain from coughing as per patient. No abdominal pain, no fluid retention as per patient. Patient directed by PCP to ER for further evaluation. Initial SBP at the ER 200s. IV insulin administered at the ER for initial blood sugar of 551 Medical History as above Last follow-up at [facility] wound care clinic 3 weeks ago. Chronic LLE open wound attributed to calciphylaxis. Improving wound. New developing area right posterior leg. Wound dressed during visit. Primary goal remains wound healing as per documentation. 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� Allergies Allergy/AdvReac Type Severity Reaction Status Date / Time No Known Allergies Allergy Verified 04/09/21 18:33 Home Medications Medication Instructions Recorded Confirmed Type aspirin 81 mg tablet,delayed 81 mg PO QAM 02/05/18 04/09/21 History release cholecalciferol (vitamin D3) 50 2,000 unit PO Q OTHER DAY 02/05/18 04/09/21 History mcg (2,000 unit) capsule (Vitamin D3) pantoprazole 40 mg tablet,delayed 40 mg PO QAM 02/05/18 04/09/21 History release (Protonix) gabapentin 100 mg capsule 100 mg PO TIDM 05/14/18 04/09/21 History albuterol sulfate 90 mcg/actuation 2 puff INHALATION Q4H PRN 08/01/18 04/09/21 History aerosol inhaler (ProAir HFA) fluticasone propionate 50 2 spray INTRANASAL DAILY PRN 08/01/18 04/09/21 History mcg/actuation nasal spray,suspension (Flonase Allergy Relief) ipratropium 0.5 mg-albuterol 3 mg 3 ml INHALATION QID PRN 08/01/18 04/09/21 History (2.5 mg base)/3 mL nebulization soln fluticasone furoate 100 1 inh INHALATION QAM 03/02/20 04/09/21 History mcg-vilanterol 25 mcg/dose inhalation powder (Breo Ellipta) baclofen 10 mg tablet 10 mg PO HS PRN 08/05/20 04/09/21 History metoprolol succinate 100 mg 100 mg PO BID #60 tab 08/14/20 04/09/21 Rx tablet,extended release 24 hr (Toprol XL) amlodipine 2.5 mg tablet 2.5 mg PO QAM 09/17/20 04/09/21 History atorvastatin 80 mg tablet 80 mg PO QPM 09/17/20 04/09/21 History torsemide 20 mg tablet 40 mg PO UD #90 tab 01/10/21 04/09/21 Rx insulin glargine 100 unit/mL (3 36 unit SUBCUT BID ml 01/17/21 04/09/21 History mL) subcutaneous pen (Lantus Solostar U-100 Insulin) insulin lispro 100 unit/mL 25 unit SUBCUT WM 01/17/21 04/09/21 History subcutaneous pen (Humalog KwikPen (U-100) Insulin) apixaban 2.5 mg tablet 2.5 mg PO BID 03/01/21 04/09/21 History digoxin 125 mcg (0.125 mg) tablet 125 mcg PO .DAILY AT NOON tab 03/01/21 04/09/21 History doxycycline hyclate 100 mg tablet 100 mg PO BID 7 Days #14 tab 04/07/21 04/09/21 Rx hydralazine 25 mg tablet 75 mg PO TID 04/07/21 04/09/21 History hydrocodone 5 mg-acetaminophen 325 1 tab PO Q4H PRN 04/07/21 04/09/21 History mg tablet potassium chloride 10 mEq 10 meq PO QAM 04/07/21 04/09/21 History tablet,extended release(part/cryst) (Klor-Con M) prednisone 20 mg tablet 20 mg PO BID 5 Days #10 tab 04/07/21 04/09/21 Rx Past Med/Surg History Medical History Aortic stenosis Severe aortic stenosis vs pseudo aortic stenosis due to low output per cardio note from 12/2019 ECHO Asthma Atrial fibrillation on warfarin CAD (coronary artery disease) "nonobstructive" Chronic anemia Chronic kidney disease Stage 4, under surveillance by Dr. Mcdermott (no dialysis at this time) Chronic systolic (congestive) heart failure COPD (chronic obstructive pulmonary disease) Diabetic neuropathy DM type 2 (diabetes mellitus, type 2) IDDM Dyslipidemia Gall stones GERD (gastroesophageal reflux disease) History of COVID-19 Dx 08/05/20(hospitalized at [facility]) > symptoms at time of cough, SOB, generalized weakness, n/v/d, loss of taste/smell > "resolved" History of multiple pulmonary nodules Hypertension LBBB (left bundle branch block) Nonischemic cardiomyopathy S/p BIV AICD in place; follows with Dr. Graves Presence of combination internal cardiac defibrillator (ICD) and pacemaker Implanted 5+ years ago, [employer], last check 07/2020 Pulmonary HTN PVD (peripheral vascular disease) Sleep apnea + nocturnal hypoxia > BIPAP + 2L O2 HS Stroke 11/2019 > residual speech difficulty/short term memory issues Surgical History H/O cardiac catheterization Non nonobstructive CAD on 2016 cardiac cath H/O total adrenalectomy Left (25 years ago) History of colonoscopy History of esophagogastroduodenoscopy (EGD) S/P debridement (01/08/21) Left Lower Extremity Medial and Lateral excisional Debridement ( greater than 20 sq. 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 Other Information That Helps Us Care for You: No Feels Safe at Home: Yes Safety Concerns: Feels Safe At This Time Assistive Devices: None Review of Systems Review of Systems: As per HPI, all 10 systems reviewed, all other ROS negative Physical Exam Physical Exam: GENERAL: obese, no respiratory distress SKIN: Pallor, warm HEENT: Alopecia, pale palpebral conjunctivae, no ptosis, dry buccal mucosa NECK : Supple, short neck, no tenderness CHEST : Decreased breath sounds, expiratory wheezes, no tenderness HEART : RRR, systolic murmur over second best heard over right intercostal space ABDOMEN: Some distention, nontender EXTREMITIES : Minimal LE swelling, dressing over LLE, violaceous patch RLE, minimal LE tenderness, no other conspicuous deformities noted NEUROLOGIC : Coherent, no facial asymmetry, no other gross focality Results & Data Results & Data ([facility]) Vital Signs (Past 12 Hours) Vital Signs Temp Pulse Resp BP BP Pulse Ox 04/09/21 17:40 88 22 179/106 H 95 04/09/21 15:30 37.1 C 18 171/94 H 96 Laboratory Results Laboratory Results WBC 9.92 K/uL (4.8-10.8) 04/09/21 15:40 RBC 4.19 M/uL (4.7-6.1) L 04/09/21 15:40 Hgb 11.7 g/dL (14.0-18.0) L 04/09/21 15:40 Hct 36.3 % (42-52) L 04/09/21 15:40 MCV 86.6 fL (80-100) 04/09/21 15:40 MCH 27.9 pg (25-34) 04/09/21 15:40 MCHC 32.2 g/dL (32-36) 04/09/21 15:40 RDW Std Deviation 49.9 fL (36.4-46.3) H 04/09/21 15:40 RDW Coeff of Joey 15.5 % (11.5-14.5) H 04/09/21 15:40 Plt Count 160 K/uL (130-400) 04/09/21 15:40 MPV 10.3 fL (7.4-10.4) 04/09/21 15:40 Immature Gran % (Auto) 0.2 % 04/09/21 15:40 Neut % (Auto) 92.1 % 04/09/21 15:40 Lymph % (Auto) 3.0 % 04/09/21 15:40 [place] % (Auto) 4.6 % 04/09/21 15:40 Eos % (Auto) 0.0 % 04/09/21 15:40 Baso % (Auto) 0.1 % 04/09/21 15:40 Neut # (Auto) 9.13 K/uL (1.4-6.5) H 04/09/21 15:40 Lymph # (Auto) 0.30 K/uL (1.2-3.4) L 04/09/21 15:40 [place] # (Auto) 0.46 K/uL (0.11-0.59) 04/09/21 15:40 Eos # (Auto) 0.00 K/uL (0-0.5) 04/09/21 15:40 Baso # (Auto) 0.01 K/uL (0-0.2) 04/09/21 15:40 Immature Gran # (Auto) 0.02 K/uL (0.00-0.02) 04/09/21 15:40 PT 10.5 Seconds (9.0-12.0) 04/09/21 15:47 INR 1.0 (0.9-1.1) 04/09/21 15:47 APTT 24.5 Seconds (21.0-31.0) 04/09/21 15:47 PTT Ratio 0.9 04/09/21 15:47 VBG pH 7.35 (7.36-7.41) L 04/09/21 19:08 VBG pCO2 48 mmHg (38-50) 04/09/21 19:08 VBG pO2 39 mmHg 04/09/21 19:08 VBG HCO3 26 mmol/L 04/09/21 19:08 VBG O2 Saturation 68.2 % 04/09/21 19:08 VBG Base Excess 0.2 mEq/L 04/09/21 19:08 Barometric Pressure 728.2 mm/Hg 04/09/21 19:08 Sodium 133 mmol/L (136-145) L 04/09/21 15:40 Potassium 4.4 mmol/L (3.5-5.1) 04/09/21 15:40 Chloride 96 mmol/L (98-107) L 04/09/21 15:40 Carbon Dioxide 25 mmol/L (21-32) 04/09/21 15:40 Anion Gap 12.0 (3-11) H 04/09/21 15:40 BUN 73 mg/dl (7-18) H 04/09/21 15:40 Creatinine 3.86 mg/dl (0.6-1.4) H 04/09/21 15:40 Est Cr Clr Drug Dosing 22.3 ml/min 04/09/21 15:40 Est GFR ( Amer) 17.6 ml/min 04/09/21 15:40 Est GFR (Non-Af Amer) 15.1 ml/min 04/09/21 15:40 BUN/Creatinine Ratio 18.8 (10-20) 04/09/21 15:40 Glucose 551 mg/dl (70-99) H* 04/09/21 15:40 POC Glucose 405 mg/dl (70-99) H* 04/09/21 20:17 Calcium 9.4 mg/dl (8.5-10.1) 04/09/21 15:40 Magnesium 2.2 mg/dl (1.8-2.4) 04/09/21 19:08 Magnesium Cancelled 04/09/21 19:08 Total Bilirubin 0.5 mg/dl (0.2-1) 04/09/21 15:40 AST 118 U/L (15-37) H 04/09/21 15:40 ALT 243 (12-78) H 04/09/21 15:40 Alkaline Phosphatase 295 U/L (45-117) H D 04/09/21 15:40 Troponin I Cancelled 04/09/21 15:47 Total Protein 7.8 gm/dl (6.4-8.2) 04/09/21 15:40 Albumin 3.5 gm/dl (3.4-5.0) 04/09/21 15:40 Globulin 4.3 gm/dl (2.5-4.0) H 04/09/21 15:40 Albumin/Globulin Ratio 0.8 (0.9-2) L 04/09/21 15:40 Beta-Hydroxybutyric Acd 1.04 mg/dl (0.2-2.81) 04/09/21 19:08 Specimen Hemolysis 04/09/21 15:40 Urine Color Yellow 04/09/21 15:40 Urine Appearance Clear (Clear) 04/09/21 15:40 Urine pH 5.5 (4.5-7.5) 04/09/21 15:40 Ur Specific [place] 1.014 (1.000-1.030) 04/09/21 15:40 Urine Protein 2+ (Negative) H 04/09/21 15:40 Urine Glucose (UA) 3+ (Negative) H 04/09/21 15:40 Urine Ketones Negative (Negative) 04/09/21 15:40 Urine Blood Negative (Negative) 04/09/21 15:40 Urine Nitrite Negative (Negative) 04/09/21 15:40 Urine Bilirubin Negative (Negative) 04/09/21 15:40 Urine Urobilinogen Negative (Negative) 04/09/21 15:40 Ur Leukocyte Esterase Negative (Negative) 04/09/21 15:40 Urine WBC (Auto) 1-5 /hpf (0-5) 04/09/21 15:40 Urine RBC (Auto) 0-4 /hpf (0-4) 04/09/21 15:40 U Hyaline Cast (Auto) 0 /lpf (0-5) 04/09/21 15:40 U Epithel Cells (Auto) >30 /lpf (0-5) H 04/09/21 15:40 Urine Bacteria (Auto) Negative (Negative) 04/09/21 15:40 Digoxin 1.6 ng/ml (0.8-2.0) 04/09/21 18:11 SARS-CoV-2 (PCR) NEGATIVE (Negative) 04/09/21 18:05 Influenza Type A (PCR) Negative (Neg) 04/09/21 18:05 Influenza Type B (PCR) Negative (Neg) 04/09/21 18:05 RSV (RT-PCR) Negative (Neg) 04/09/21 18:05 Impressions Chest X-Ray 04/09/21 17:53 XR chest 1V portable CLINICAL HISTORY: cough COMPARISON STUDY: Chest CT September 17, 2020. Chest radiograph April 07, 2021. FINDINGS: Lung volumes are normal. There is no pneumothorax or pleural effusion. Cardiomegaly is unchanged. Left subclavian biventricular pacer/AICD is in place. The appearance of the chest is unchanged. IMPRESSION: No acute cardiopulmonary findings. No change in appearance of the chest. ACT 112: Negative or not required by law. Electronically signed by: Balwinder Juarez M.D. 04/09/2021 7:10 PM Diagnostic Findings EKG as per my interpretation: Rate 65, paced rhythm
[2021-04-09] MEDS ORDERED: NON-FORMULARY MEDICATION (Doxycycline Hyclate 100 mg tablet) PO SCH (21:45)
[2021-04-09] MEDS ORDERED: DEXTROSE 50% 50 ML SYRINGE IV PRN (22:48)
[2021-04-09] MEDS ORDERED: GLUCOSE 40% GEL 15 GM TUBE PO PRN (22:48)
[2021-04-09] MEDS ORDERED: GLUCOSE 10 TABS/TUBE PO PRN (22:48)
[2021-04-09] MEDS ORDERED: CARBOHYDRATES FOR HYPOGLYCEMIA PO PRN (22:48)
[2021-04-09] MEDS ORDERED: GLUCAGON FOR INJ 1 MG VIAL SQ PRN (22:48)
[2021-04-09] MEDS: INSULIN ASPART PER UNIT SC SCH (23:20)
[2021-04-09] MEDS: APIXABAN 2.5 MG TAB PO SCH (23:22)
[2021-04-09] MEDS ORDERED: ACETAMINOPHEN 325 MG TAB PO PRN (23:24)
[2021-04-09] MEDS ORDERED: FLUTICASONE PROPIONATE NA SPR 16 GM BTL PRN (23:24)
[2021-04-09] MEDS ORDERED: PROMETHAZINE HCL 12.5 MG in SODIUM CHLORIDE 0.9% 50 ML IV PRN (23:24)
[2021-04-09] MEDS ORDERED: traMADol HCL 50 MG TABLET PO PRN (23:24)
[2021-04-09 23:30] LABS: BUN Creatinine Ratio 20.8 (10-20); Calcium 8.9 mg/dl (8.5-10.1); Creatinine Clr Calc Pharmacy 24.6 ml/min; Est GFR (African American) 19.8 ml/min; Est GFR (Non-African American) 17.1 ml/min; Potassium 3.8 mmol/L (3.5-5.1); Troponin I 0.114 ng/ml (0-0.045)
[2021-04-09 23:41] LABS: Beta-Hydroxybutyrate 2.13 mg/dl (0.2-2.81)
[2021-04-10] MEDS ORDERED: DOXYCYCLINE HYCLATE 100 MG CAP PO ONE (00:03)
[2021-04-10] MEDS: IPRATROPIUM BROMIDE NEB SOLN 0.02% 2.5 ML VIAL INH SCH ×4 (00:53→19:06)
[2021-04-10] MEDS: LEVALBUTEROL 1.25MG/0.5ML NEB INH SCH ×4 (00:53→19:06)
[2021-04-10] MEDS ORDERED: XOPENEX/ATROVENT 1.25mg/0.5MG NEB COMBO NEB SCH (01:00)
[2021-04-10] MEDS: amLODIPine BESYLATE 5 MG TAB PO SCH ×2 (01:03→07:55)
[2021-04-10 05:28] LABS: Albumin Level 3.2 gm/dl (3.4-5.0); BUN Creatinine Ratio 20.5 (10-20); Bilirubin Direct 0.2 mg/dl (0-0.2); Calcium 9.3 mg/dl (8.5-10.1); Creatinine Clr Calc Pharmacy 24.7 ml/min; Est GFR (African American) 19.8 ml/min; Est GFR (Non-African American) 17.1 ml/min; Potassium 3.4 mmol/L (3.5-5.1)
[2021-04-10 05:37] LABS: Bilirubin,Total 0.5 mg/dl (0.2-1); Total Protein 6.8 gm/dl (6.4-8.2); Troponin I 0.135 ng/ml (0-0.045)
[2021-04-10 06:28] LABS: Basophils # (auto) 0.01 K/uL (0-0.2); Basophils % (auto) 0.1 %; Eosinophils % (auto) 1.2 %; Hematocrit (blood only) 33.3 % (42-52); Hemoglobin 10.7 g/dL (14.0-18.0); Immature Granulocytes # (auto) 0.01 K/uL (0.00-0.02); Immature Granulocytes % (auto) 0.1 %; Lymphocytes # (auto) 0.82 K/uL (1.2-3.4); Lymphocytes % (auto) 10.1 %; Mean Corpuscular Hemoglobin 27.9 pg (25-34); Mean Corpuscular Hgb Conc 32.1 g/dL (32-36); Mean Corpuscular Volume 86.7 fL (80-100); Monocytes # (auto) 0.75 K/uL (0.11-0.59); Monocytes % (auto) 9.2 %; Neutrophils # (auto) 6.43 K/uL (1.4-6.5); Neutrophils % (auto) 79.3 %; Platelet Count 133 K/uL (130-400); RDW Coefficient of Variation 15.5 % (11.5-14.5); RDW Standard Deviation 49.4 fL (36.4-46.3); Red Blood Count 3.84 M/uL (4.7-6.1); White Blood Count 8.12 K/uL (4.8-10.8)
[2021-04-10] MEDS: FLUTICASONE/VILANTEROL 100/25MCG 14 PUFFS/INHALER INH SCH (07:54)
[2021-04-10] MEDS: predniSONE 20 MG TAB PO SCH (07:56)
[2021-04-10] MEDS: GABAPENTIN 100 MG CAP PO SCH ×3 (07:57→17:16)
[2021-04-10] MEDS: ASPIRIN 81 MG ECTAB PO SCH (07:57)
[2021-04-10] MEDS: METOPROLOL SUCC 50MG EXT REL TAB PO SCH ×2 (07:58→21:50)
[2021-04-10] MEDS: PANTOprazole 40 MG TAB PO SCH (07:59)
[2021-04-10] MEDS: DOXYCYCLINE HYCLATE 100 MG CAP PO SCH ×2 (08:06→21:49)
[2021-04-10] MEDS: APIXABAN 2.5 MG TAB PO SCH ×2 (08:07→21:49)
[2021-04-10] MEDS ORDERED: amLODIPine BESYLATE 5 MG TAB PO SCH (09:00)
[2021-04-10] MEDS ORDERED: INSULIN GLARGINE SOLOSTAR 100 UNITS/ML 3 ML PEN SQ SCH ×2 (09:00)
[2021-04-10] MEDS: INSULIN ASPART PER UNIT SC SCH ×5 (09:30→21:56)
[2021-04-10] MEDS ORDERED: POTASSIUM CHLORIDE CRTAB 20 MEQ TABCR PO STA (10:31)
--- NOTE | 2021-04-10 10:34 | Hospitalist Progress Note ---
Date of Service April 10, 2021 Assessment & Plan (1) Asymptomatic hypertensive urgency: Plan: Secondary to steroid Rx for COPD exacerbation/bronchitis Titrate home BP meds monitor in PCU COPD exacerbation/bronchitis CXR w/o any acute findings Add procalcitonin Cont. doxycycline for complicated bronchitis cont. prednisone 20 mg daily Troponin elevation secondary to above in the setting of CKD Follow troponin Pt has no chest pain Hyperglycemic crisis secondary to steroid Rx History poorly controlled DM2 insulin requiring suboptimal control as above recent hemoglobin A1c of 9.21 February 2021 Basal insulin, ISS BG goal 110-140, carb count coverage May benefit from Pharmacy glycemic control consultation. Chronic wounds/calciphylaxis Follows w/ wound care clinic, improving Wound care nurse consult Re: Chronic leg wounds CKD, poss. PAM on CKD Monitor creatinine response to gentle IV hydration Hold home diuretic until creatinine back to baseline Renal ultrasound, Nephrology consult if kidney function does not improve. Asymptomatic transaminitis Follow LFTs, hold statin for now, liver ultrasound if with worsening Chronic systolic heart failure secondary to nonischemic cardiomyopathy, patient on the dry side Chronic LBBB Hx nonocclusive CAD/PVD as per records/hx CVA A. fib, paced rhythm on on Eliquis Valvular heart disease (severe aortic stenosis, mild MR/TR on recent TTE), surgery contemplated for aortic stenosis once chronic left leg wound healed. Chronic anemia, hemoglobin at baseline cont. to monitor Hgb History medication noncompliance as per records past tobacco abuse DVT prophylaxis.� Eliquis Full code Admission and Anticipated Discharge Date Admission Date: April 09, 2021 Subjective Patient seen in follow-up of hypertensive urgency, hyperglycemia in the setting of steroid use, wounds Currently patient is lying in bed, in no acute distress Says he was not feeling well yesterday, and reports having quite elevated blood sugars in the emergency room He is still in emergency room, holding area (B11) No fevers, chills, chest pain, abdominal pain, nausea vomiting, says wounds are healing well Reports having cough and wheezing, some yellow sputum for past couple of days Blood sugars improving now Review of Systems Review of Systems: All systems reviewed & are unremarkable except as noted in Subjective Physical Exam Physical Exam: GENERAL:� obese M in NAD HEENT: NC/AT, Alopecia, pale palpebral conjunctivae NECK : Supple CHEST : Decreased breath sounds, + diffuse rhonchi, mild expiratory wheezes HEART : RRR, +systolic murmur ABDOMEN: Some distention, nontender EXTREMITIES : Minimal LE swelling, dressing over LLE, violaceous patch RLE, minimal� LE tenderness, moves extremities NEUROLOGIC : Alert and oriented, answering questions appropriately, no facial asymmetry, moves extremities SKIN: Pallor, warm � Results & Data Results & Data ([facility]) Vital Signs (Past 12 Hours) Vital Signs Temp Pulse Resp BP Pulse Ox Pulse Ox 04/10/21 07:49 75 23 160/82 H 93 04/10/21 07:32 67 17 96 04/10/21 04:20 36.9 C 69 18 131/72 91 04/10/21 01:02 71 178/91 H 04/10/21 00:53 68 22 96 04/09/21 23:27 94 H 20 163/107 H 93 04/09/21 23:26 96 04/09/21 22:35 77 21 168/93 H 96 Laboratory Results 04/10/21 04/10/21 04/10/21 Range/Units 07:52 04:42 04:42 WBC 8.12 (4.8-10.8) K/uL RBC 3.84 L (4.7-6.1) M/uL Hgb 10.7 L (14.0-18.0) g/dL Hct 33.3 L (42-52) % MCV 86.7 (80-100) fL MCH 27.9 (25-34) pg MCHC 32.1 (32-36) g/dL RDW Std Deviation 49.4 H (36.4-46.3) fL RDW Coeff of Joey 15.5 H (11.5-14.5) % Plt Count 133 (130-400) K/uL MPV 10.0 (7.4-10.4) fL Immature Gran % (Auto) 0.1 % Neut % (Auto) 79.3 % Lymph % (Auto) 10.1 % [place] % (Auto) 9.2 % Eos % (Auto) 1.2 % Baso % (Auto) 0.1 % Neut # (Auto) 6.43 (1.4-6.5) K/uL Lymph # (Auto) 0.82 L (1.2-3.4) K/uL [place] # (Auto) 0.75 H (0.11-0.59) K/uL Eos # (Auto) 0.10 (0-0.5) K/uL Baso # (Auto) 0.01 (0-0.2) K/uL Immature Gran # (Auto) 0.01 (0.00-0.02) K/uL PT (9.0-12.0) Seconds INR (0.9-1.1) APTT (21.0-31.0) Seconds PTT Ratio VBG pH (7.36-7.41) VBG pCO2 (38-50) mmHg VBG pO2 mmHg VBG HCO3 mmol/L VBG O2 Saturation % VBG Base Excess mEq/L Barometric Pressure mm/Hg Sodium 138 (136-145) mmol/L Potassium 3.4 L (3.5-5.1) mmol/L Chloride 102 (98-107) mmol/L Carbon Dioxide 25 (21-32) mmol/L Anion Gap 11.0 (3-11) BUN 71 H (7-18) mg/dl Creatinine 3.49 H (0.6-1.4) mg/dl Est Cr Clr Drug Dosing 24.7 ml/min Est GFR ( Amer) 19.8 ml/min Est GFR (Non-Af Amer) 17.1 ml/min BUN/Creatinine Ratio 20.5 H (10-20) Glucose 276 H (70-99) mg/dl POC Glucose 294 H (70-99) mg/dl Calcium 9.3 (8.5-10.1) mg/dl Magnesium (1.8-2.4) mg/dl Total Bilirubin 0.5 (0.2-1) mg/dl Direct Bilirubin 0.2 (0-0.2) mg/dl AST 67 H (15-37) U/L ALT 187 H (12-78) Alkaline Phosphatase 224 H D (45-117) U/L Total Creatine Kinase 169 (39-308) U/L Troponin I 0.135 H* (0-0.045) ng/ml Total Protein 6.8 (6.4-8.2) gm/dl Albumin 3.2 L (3.4-5.0) gm/dl Globulin (2.5-4.0) gm/dl Albumin/Globulin Ratio (0.9-2) Beta-Hydroxybutyric Acd (0.2-2.81) mg/dl Specimen Hemolysis Urine Color Urine Appearance (Clear) Urine pH (4.5-7.5) Ur Specific [place] (1.000-1.030) Urine Protein (Negative) Urine Glucose (UA) (Negative) Urine Ketones (Negative) Urine Blood (Negative) Urine Nitrite (Negative) Urine Bilirubin (Negative) Urine Urobilinogen (Negative) Ur Leukocyte Esterase (Negative) Urine WBC (Auto) (0-5) /hpf Urine RBC (Auto) (0-4) /hpf U Hyaline Cast (Auto) (0-5) /lpf U Epithel Cells (Auto) (0-5) /lpf Urine Bacteria (Auto) (Negative) Digoxin (0.8-2.0) ng/ml SARS-CoV-2 (PCR) (Negative) Influenza Type A (PCR) (Neg) Influenza Type B (PCR) (Neg) RSV (RT-PCR) (Neg) 04/10/21 04/09/21 04/09/21 Range/Units 01:05 22:33 22:25 WBC (4.8-10.8) K/uL RBC (4.7-6.1) M/uL Hgb (14.0-18.0) g/dL Hct (42-52) % MCV (80-100) fL MCH (25-34) pg MCHC (32-36) g/dL RDW Std Deviation (36.4-46.3) fL RDW Coeff of Joey (11.5-14.5) % Plt Count (130-400) K/uL MPV (7.4-10.4) fL Immature Gran % (Auto) % Neut % (Auto) % Lymph % (Auto) % [place] % (Auto) % Eos % (Auto) % Baso % (Auto) % Neut # (Auto) (1.4-6.5) K/uL Lymph # (Auto) (1.2-3.4) K/uL [place] # (Auto) (0.11-0.59) K/uL Eos # (Auto) (0-0.5) K/uL Baso # (Auto) (0-0.2) K/uL Immature Gran # (Auto) (0.00-0.02) K/uL PT (9.0-12.0) Seconds INR (0.9-1.1) APTT (21.0-31.0) Seconds PTT Ratio VBG pH (7.36-7.41) VBG pCO2 (38-50) mmHg VBG pO2 mmHg VBG HCO3 mmol/L VBG O2 Saturation % VBG Base Excess mEq/L Barometric Pressure mm/Hg Sodium 136 (136-145) mmol/L Potassium 3.8 (3.5-5.1) mmol/L Chloride 100 (98-107) mmol/L Carbon Dioxide 25 (21-32) mmol/L Anion Gap 11.0 (3-11) BUN 73 H (7-18) mg/dl Creatinine 3.50 H D (0.6-1.4) mg/dl Est Cr Clr Drug Dosing 24.6 ml/min Est GFR ( Amer) 19.8 ml/min Est GFR (Non-Af Amer) 17.1 ml/min BUN/Creatinine Ratio 20.8 H (10-20) Glucose 405 H* (70-99) mg/dl POC Glucose 341 H* 374 H* (70-99) mg/dl Calcium 8.9 (8.5-10.1) mg/dl Magnesium (1.8-2.4) mg/dl Total Bilirubin (0.2-1) mg/dl Direct Bilirubin (0-0.2) mg/dl AST (15-37) U/L ALT (12-78) Alkaline Phosphatase (45-117) U/L Total Creatine Kinase (39-308) U/L Troponin I 0.114 H* (0-0.045) ng/ml Total Protein (6.4-8.2) gm/dl Albumin (3.4-5.0) gm/dl Globulin (2.5-4.0) gm/dl Albumin/Globulin Ratio (0.9-2) Beta-Hydroxybutyric Acd 2.13 (0.2-2.81) mg/dl Specimen Hemolysis Urine Color Urine Appearance (Clear) Urine pH (4.5-7.5) Ur Specific [place] (1.000-1.030) Urine Protein (Negative) Urine Glucose (UA) (Negative) Urine Ketones (Negative) Urine Blood (Negative) Urine Nitrite (Negative) Urine Bilirubin (Negative) Urine Urobilinogen (Negative) Ur Leukocyte Esterase (Negative) Urine WBC (Auto) (0-5) /hpf Urine RBC (Auto) (0-4) /hpf U Hyaline Cast (Auto) (0-5) /lpf U Epithel Cells (Auto) (0-5) /lpf Urine Bacteria (Auto) (Negative) Digoxin (0.8-2.0) ng/ml SARS-CoV-2 (PCR) (Negative) Influenza Type A (PCR) (Neg) Influenza Type B (PCR) (Neg) RSV (RT-PCR) (Neg) 04/09/21 04/09/21 04/09/21 Range/Units 20:17 19:08 19:08 WBC (4.8-10.8) K/uL RBC (4.7-6.1) M/uL Hgb (14.0-18.0) g/dL Hct (42-52) % MCV (80-100) fL MCH (25-34) pg MCHC (32-36) g/dL RDW Std Deviation (36.4-46.3) fL RDW Coeff of Joey (11.5-14.5) % Plt Count (130-400) K/uL MPV (7.4-10.4) fL Immature Gran % (Auto) % Neut % (Auto) % Lymph % (Auto) % [place] % (Auto) % Eos % (Auto) % Baso % (Auto) % Neut # (Auto) (1.4-6.5) K/uL Lymph # (Auto) (1.2-3.4) K/uL [place] # (Auto) (0.11-0.59) K/uL Eos # (Auto) (0-0.5) K/uL Baso # (Auto) (0-0.2) K/uL Immature Gran # (Auto) (0.00-0.02) K/uL PT (9.0-12.0) Seconds INR (0.9-1.1) APTT (21.0-31.0) Seconds PTT Ratio VBG pH (7.36-7.41) VBG pCO2 (38-50) mmHg VBG pO2 mmHg VBG HCO3 mmol/L VBG O2 Saturation % VBG Base Excess mEq/L Barometric Pressure mm/Hg Sodium (136-145) mmol/L Potassium (3.5-5.1) mmol/L Chloride (98-107) mmol/L Carbon Dioxide (21-32) mmol/L Anion Gap (3-11) BUN (7-18) mg/dl Creatinine (0.6-1.4) mg/dl Est Cr Clr Drug Dosing ml/min Est GFR ( Amer) ml/min Est GFR (Non-Af Amer) ml/min BUN/Creatinine Ratio (10-20) Glucose (70-99) mg/dl POC Glucose 405 H* (70-99) mg/dl Calcium (8.5-10.1) mg/dl Magnesium Cancelled 2.2 (1.8-2.4) mg/dl Total Bilirubin (0.2-1) mg/dl Direct Bilirubin (0-0.2) mg/dl AST (15-37) U/L ALT (12-78) Alkaline Phosphatase (45-117) U/L Total Creatine Kinase (39-308) U/L Troponin I (0-0.045) ng/ml Total Protein (6.4-8.2) gm/dl Albumin (3.4-5.0) gm/dl Globulin (2.5-4.0) gm/dl Albumin/Globulin Ratio (0.9-2) Beta-Hydroxybutyric Acd 1.04 (0.2-2.81) mg/dl Specimen Hemolysis Urine Color Urine Appearance (Clear) Urine pH (4.5-7.5) Ur Specific [place] (1.000-1.030) Urine Protein (Negative) Urine Glucose (UA) (Negative) Urine Ketones (Negative) Urine Blood (Negative) Urine Nitrite (Negative) Urine Bilirubin (Negative) Urine Urobilinogen (Negative) Ur Leukocyte Esterase (Negative) Urine WBC (Auto) (0-5) /hpf Urine RBC (Auto) (0-4) /hpf U Hyaline Cast (Auto) (0-5) /lpf U Epithel Cells (Auto) (0-5) /lpf Urine Bacteria (Auto) (Negative) Digoxin (0.8-2.0) ng/ml SARS-CoV-2 (PCR) (Negative) Influenza Type A (PCR) (Neg) Influenza Type B (PCR) (Neg) RSV (RT-PCR) (Neg) 04/09/21 04/09/21 04/09/21 Range/Units 19:08 18:11 18:05 WBC (4.8-10.8) K/uL RBC (4.7-6.1) M/uL Hgb (14.0-18.0) g/dL Hct (42-52) % MCV (80-100) fL MCH (25-34) pg MCHC (32-36) g/dL RDW Std Deviation (36.4-46.3) fL RDW Coeff of Joey (11.5-14.5) % Plt Count (130-400) K/uL MPV (7.4-10.4) fL Immature Gran % (Auto) % Neut % (Auto) % Lymph % (Auto) % [place] % (Auto) % Eos % (Auto) % Baso % (Auto) % Neut # (Auto) (1.4-6.5) K/uL Lymph # (Auto) (1.2-3.4) K/uL [place] # (Auto) (0.11-0.59) K/uL Eos # (Auto) (0-0.5) K/uL Baso # (Auto) (0-0.2) K/uL Immature Gran # (Auto) (0.00-0.02) K/uL PT (9.0-12.0) Seconds INR (0.9-1.1) APTT (21.0-31.0) Seconds PTT Ratio VBG pH 7.35 L (7.36-7.41) VBG pCO2 48 (38-50) mmHg VBG pO2 39 mmHg VBG HCO3 26 mmol/L VBG O2 Saturation 68.2 % VBG Base Excess 0.2 mEq/L Barometric Pressure 728.2 mm/Hg Sodium (136-145) mmol/L Potassium (3.5-5.1) mmol/L Chloride (98-107) mmol/L Carbon Dioxide (21-32) mmol/L Anion Gap (3-11) BUN (7-18) mg/dl Creatinine (0.6-1.4) mg/dl Est Cr Clr Drug Dosing ml/min Est GFR ( Amer) ml/min Est GFR (Non-Af Amer) ml/min BUN/Creatinine Ratio (10-20) Glucose (70-99) mg/dl POC Glucose (70-99) mg/dl Calcium (8.5-10.1) mg/dl Magnesium (1.8-2.4) mg/dl Total Bilirubin (0.2-1) mg/dl Direct Bilirubin (0-0.2) mg/dl AST (15-37) U/L ALT (12-78) Alkaline Phosphatase (45-117) U/L Total Creatine Kinase (39-308) U/L Troponin I (0-0.045) ng/ml Total Protein (6.4-8.2) gm/dl Albumin (3.4-5.0) gm/dl Globulin (2.5-4.0) gm/dl Albumin/Globulin Ratio (0.9-2) Beta-Hydroxybutyric Acd (0.2-2.81) mg/dl Specimen Hemolysis Urine Color Urine Appearance (Clear) Urine pH (4.5-7.5) Ur Specific [place] (1.000-1.030) Urine Protein (Negative) Urine Glucose (UA) (Negative) Urine Ketones (Negative) Urine Blood (Negative) Urine Nitrite (Negative) Urine Bilirubin (Negative) Urine Urobilinogen (Negative) Ur Leukocyte Esterase (Negative) Urine WBC (Auto) (0-5) /hpf Urine RBC (Auto) (0-4) /hpf U Hyaline Cast (Auto) (0-5) /lpf U Epithel Cells (Auto) (0-5) /lpf Urine Bacteria (Auto) (Negative) Digoxin 1.6 (0.8-2.0) ng/ml SARS-CoV-2 (PCR) NEGATIVE (Negative) Influenza Type A (PCR) Negative (Neg) Influenza Type B (PCR) Negative (Neg) RSV (RT-PCR) Negative (Neg) 04/09/21 04/09/21 04/09/21 Range/Units 15:47 15:47 15:40 WBC (4.8-10.8) K/uL RBC (4.7-6.1) M/uL Hgb (14.0-18.0) g/dL Hct (42-52) % MCV (80-100) fL MCH (25-34) pg MCHC (32-36) g/dL RDW Std Deviation (36.4-46.3) fL RDW Coeff of Joey (11.5-14.5) % Plt Count (130-400) K/uL MPV (7.4-10.4) fL Immature Gran % (Auto) % Neut % (Auto) % Lymph % (Auto) % [place] % (Auto) % Eos % (Auto) % Baso % (Auto) % Neut # (Auto) (1.4-6.5) K/uL Lymph # (Auto) (1.2-3.4) K/uL [place] # (Auto) (0.11-0.59) K/uL Eos # (Auto) (0-0.5) K/uL Baso # (Auto) (0-0.2) K/uL Immature Gran # (Auto) (0.00-0.02) K/uL PT 10.5 (9.0-12.0) Seconds INR 1.0 (0.9-1.1) APTT 24.5 (21.0-31.0) Seconds PTT Ratio 0.9 VBG pH (7.36-7.41) VBG pCO2 (38-50) mmHg VBG pO2 mmHg VBG HCO3 mmol/L VBG O2 Saturation % VBG Base Excess mEq/L Barometric Pressure mm/Hg Sodium (136-145) mmol/L Potassium (3.5-5.1) mmol/L Chloride (98-107) mmol/L Carbon Dioxide (21-32) mmol/L Anion Gap (3-11) BUN (7-18) mg/dl Creatinine (0.6-1.4) mg/dl Est Cr Clr Drug Dosing ml/min Est GFR ( Amer) ml/min Est GFR (Non-Af Amer) ml/min BUN/Creatinine Ratio (10-20) Glucose (70-99) mg/dl POC Glucose (70-99) mg/dl Calcium (8.5-10.1) mg/dl Magnesium (1.8-2.4) mg/dl Total Bilirubin (0.2-1) mg/dl Direct Bilirubin (0-0.2) mg/dl AST (15-37) U/L ALT (12-78) Alkaline Phosphatase (45-117) U/L Total Creatine Kinase (39-308) U/L Troponin I Cancelled (0-0.045) ng/ml Total Protein (6.4-8.2) gm/dl Albumin (3.4-5.0) gm/dl Globulin (2.5-4.0) gm/dl Albumin/Globulin Ratio (0.9-2) Beta-Hydroxybutyric Acd Cancelled (0.2-2.81) mg/dl Specimen Hemolysis Urine Color Urine Appearance (Clear) Urine pH (4.5-7.5) Ur Specific [place] (1.000-1.030) Urine Protein (Negative) Urine Glucose (UA) (Negative) Urine Ketones (Negative) Urine Blood (Negative) Urine Nitrite (Negative) Urine Bilirubin (Negative) Urine Urobilinogen (Negative) Ur Leukocyte Esterase (Negative) Urine WBC (Auto) (0-5) /hpf Urine RBC (Auto) (0-4) /hpf U Hyaline Cast (Auto) (0-5) /lpf U Epithel Cells (Auto) (0-5) /lpf Urine Bacteria (Auto) (Negative) Digoxin (0.8-2.0) ng/ml SARS-CoV-2 (PCR) (Negative) Influenza Type A (PCR) (Neg) Influenza Type B (PCR) (Neg) RSV (RT-PCR) (Neg) 04/09/21 04/09/21 04/09/21 Range/Units 15:40 15:40 15:40 WBC 9.92 (4.8-10.8) K/uL RBC 4.19 L (4.7-6.1) M/uL Hgb 11.7 L (14.0-18.0) g/dL Hct 36.3 L (42-52) % MCV 86.6 (80-100) fL MCH 27.9 (25-34) pg MCHC 32.2 (32-36) g/dL RDW Std Deviation 49.9 H (36.4-46.3) fL RDW Coeff of Joey 15.5 H (11.5-14.5) % Plt Count 160 (130-400) K/uL MPV 10.3 (7.4-10.4) fL Immature Gran % (Auto) 0.2 % Neut % (Auto) 92.1 % Lymph % (Auto) 3.0 % [place] % (Auto) 4.6 % Eos % (Auto) 0.0 % Baso % (Auto) 0.1 % Neut # (Auto) 9.13 H (1.4-6.5) K/uL Lymph # (Auto) 0.30 L (1.2-3.4) K/uL [place] # (Auto) 0.46 (0.11-0.59) K/uL Eos # (Auto) 0.00 (0-0.5) K/uL Baso # (Auto) 0.01 (0-0.2) K/uL Immature Gran # (Auto) 0.02 (0.00-0.02) K/uL PT (9.0-12.0) Seconds INR (0.9-1.1) APTT (21.0-31.0) Seconds PTT Ratio VBG pH (7.36-7.41) VBG pCO2 (38-50) mmHg VBG pO2 mmHg VBG HCO3 mmol/L VBG O2 Saturation % VBG Base Excess mEq/L Barometric Pressure mm/Hg Sodium 133 L (136-145) mmol/L Potassium 4.4 (3.5-5.1) mmol/L Chloride 96 L (98-107) mmol/L Carbon Dioxide 25 (21-32) mmol/L Anion Gap 12.0 H (3-11) BUN 73 H (7-18) mg/dl Creatinine 3.86 H (0.6-1.4) mg/dl Est Cr Clr Drug Dosing 22.3 ml/min Est GFR ( Amer) 17.6 ml/min Est GFR (Non-Af Amer) 15.1 ml/min BUN/Creatinine Ratio 18.8 (10-20) Glucose 551 H* (70-99) mg/dl POC Glucose (70-99) mg/dl Calcium 9.4 (8.5-10.1) mg/dl Magnesium (1.8-2.4) mg/dl Total Bilirubin 0.5 (0.2-1) mg/dl Direct Bilirubin (0-0.2) mg/dl AST 118 H (15-37) U/L ALT 243 H (12-78) Alkaline Phosphatase 295 H D (45-117) U/L Total Creatine Kinase (39-308) U/L Troponin I 0.096 H* (0-0.045) ng/ml Total Protein 7.8 (6.4-8.2) gm/dl Albumin 3.5 (3.4-5.0) gm/dl Globulin 4.3 H (2.5-4.0) gm/dl Albumin/Globulin Ratio 0.8 L (0.9-2) Beta-Hydroxybutyric Acd (0.2-2.81) mg/dl Specimen Hemolysis Urine Color Yellow Urine Appearance Clear (Clear) Urine pH 5.5 (4.5-7.5) Ur Specific [place] 1.014 (1.000-1.030) Urine Protein 2+ H (Negative) Urine Glucose (UA) 3+ H (Negative) Urine Ketones Negative (Negative) Urine Blood Negative (Negative) Urine Nitrite Negative (Negative) Urine Bilirubin Negative (Negative) Urine Urobilinogen Negative (Negative) Ur Leukocyte Esterase Negative (Negative) Urine WBC (Auto) 1-5 (0-5) /hpf Urine RBC (Auto) 0-4 (0-4) /hpf U Hyaline Cast (Auto) 0 (0-5) /lpf U Epithel Cells (Auto) >30 H (0-5) /lpf Urine Bacteria (Auto) Negative (Negative) Digoxin (0.8-2.0) ng/ml SARS-CoV-2 (PCR) (Negative) Influenza Type A (PCR) (Neg) Influenza Type B (PCR) (Neg) RSV (RT-PCR) (Neg) 04/09/21 Range/Units 15:32 WBC (4.8-10.8) K/uL RBC (4.7-6.1) M/uL Hgb (14.0-18.0) g/dL Hct (42-52) % MCV (80-100) fL MCH (25-34) pg MCHC (32-36) g/dL RDW Std Deviation (36.4-46.3) fL RDW Coeff of Joey (11.5-14.5) % Plt Count (130-400) K/uL MPV (7.4-10.4) fL Immature Gran % (Auto) % Neut % (Auto) % Lymph % (Auto) % [place] % (Auto) % Eos % (Auto) % Baso % (Auto) % Neut # (Auto) (1.4-6.5) K/uL Lymph # (Auto) (1.2-3.4) K/uL [place] # (Auto) (0.11-0.59) K/uL Eos # (Auto) (0-0.5) K/uL Baso # (Auto) (0-0.2) K/uL Immature Gran # (Auto) (0.00-0.02) K/uL PT (9.0-12.0) Seconds INR (0.9-1.1) APTT (21.0-31.0) Seconds PTT Ratio VBG pH (7.36-7.41) VBG pCO2 (38-50) mmHg VBG pO2 mmHg VBG HCO3 mmol/L VBG O2 Saturation % VBG Base Excess mEq/L Barometric Pressure mm/Hg Sodium (136-145) mmol/L Potassium (3.5-5.1) mmol/L Chloride (98-107) mmol/L Carbon Dioxide (21-32) mmol/L Anion Gap (3-11) BUN (7-18) mg/dl Creatinine (0.6-1.4) mg/dl Est Cr Clr Drug Dosing ml/min Est GFR ( Amer) ml/min Est GFR (Non-Af Amer) ml/min BUN/Creatinine Ratio (10-20) Glucose (70-99) mg/dl POC Glucose 534 H* (70-99) mg/dl Calcium (8.5-10.1) mg/dl Magnesium (1.8-2.4) mg/dl Total Bilirubin (0.2-1) mg/dl Direct Bilirubin (0-0.2) mg/dl AST (15-37) U/L ALT (12-78) Alkaline Phosphatase (45-117) U/L Total Creatine Kinase (39-308) U/L Troponin I (0-0.045) ng/ml Total Protein (6.4-8.2) gm/dl Albumin (3.4-5.0) gm/dl Globulin (2.5-4.0) gm/dl Albumin/Globulin Ratio (0.9-2) Beta-Hydroxybutyric Acd (0.2-2.81) mg/dl Specimen Hemolysis Urine Color Urine Appearance (Clear) Urine pH (4.5-7.5) Ur Specific [place] (1.000-1.030) Urine Protein (Negative) Urine Glucose (UA) (Negative) Urine Ketones (Negative) Urine Blood (Negative) Urine Nitrite (Negative) Urine Bilirubin (Negative) Urine Urobilinogen (Negative) Ur Leukocyte Esterase (Negative) Urine WBC (Auto) (0-5) /hpf Urine RBC (Auto) (0-4) /hpf U Hyaline Cast (Auto) (0-5) /lpf U Epithel Cells (Auto) (0-5) /lpf Urine Bacteria (Auto) (Negative) Digoxin (0.8-2.0) ng/ml SARS-CoV-2 (PCR) (Negative) Influenza Type A (PCR) (Neg) Influenza Type B (PCR) (Neg) RSV (RT-PCR) (Neg) Medications Administered Current Inpatient Medications Acetaminophen (Acetaminophen 325 Mg Tab) 325 mg PO Q6H PRN PRN Reason: Mild Pain Stop: 05/09/21 23:23 Amlodipine Besylate (Amlodipine Besylate 5 Mg Tab) [facility] [place] Stop: 05/10/21 00:14 Last Admin: 04/10/21 07:55 Dose: 5 mg Documented by: Apixaban (Apixaban 2.5 Mg Tab) 2.5 mg PO BID [facility] Stop: 05/09/21 21:44 Last Admin: 04/10/21 08:07 Dose: 2.5 mg Documented by: Aspirin (Aspirin 81 Mg Ectab) 81 mg PO QAM [facility] Stop: 05/10/21 08:59 Last Admin: 04/10/21 07:57 Dose: 81 mg Documented by: Dextrose (Dextrose 50% 50 Ml Syringe) 25 - 50 ml IV UD PRN; Protocol PRN Reason: Hypoglycemia Protocol Stop: 05/09/21 22:47 Digoxin (Digoxin 0.125 Mg Tab) 0.125 mg PO DAILY@1200 [facility] Stop: 05/10/21 11:59 Doxycycline Hyclate (Doxycycline Hyclate 100 Mg Cap) 100 mg PO BID [facility] Stop: 04/15/21 08:59 Last Admin: 04/10/21 08:06 Dose: 100 mg Documented by: Fluticasone Propionate (Fluticasone Propionate Na Spr 16 Gm Btl) 2 sprays NA DAILY PRN PRN Reason: Nasal Congestion Stop: 05/09/21 23:23 Fluticasone/Vilanterol (Fluticasone/Vilanterol 100/25mcg 14 Puffs/Inhaler) 1 p[facility] [place] Stop: 05/10/21 08:59 Last Admin: 04/10/21 07:54 Dose: 1 puffs Documented by: Gabapentin (Gabapentin 100 Mg Cap) 100 mg PO TIDM [facility] Stop: 05/10/21 07:59 Last Admin: 04/10/21 07:57 Dose: 100 mg Documented by: Glucagon (Glucagon For Inj 1 Mg Vial) 1 mg SQ UD PRN; Protocol PRN Reason: Hypoglycemia Protocol Stop: 05/09/21 22:47 Glucose (Glucose 10 Tabs/Tube) 4 - 8 tabs PO UD PRN; Protocol PRN Reason: Hypoglycemia Protocol Stop: 05/09/21 22:47 Glucose (Glucose 40% Gel 15 Gm Tube) 15 - 30 gm PO UD PRN; Protocol PRN Reason: Hypoglycemia Protocol Stop: 05/09/21 22:47 Sodium Chloride (Nss 1000ml) 1,000 mls @ 50 mls/hr IV .Q20H ONE Stop: 04/10/21 17:09 Last Admin: 04/09/21 21:31 Dose: 50 mls/hr Documented by: Promethazine HCl 12.5 mg/ (Sodium Chloride) 50.5 mls @ 202 mls/hr IV Q6H PRN PRN Reason: Nausea And Vomiting Stop: 05/09/21 23:23 Insulin Aspart (Insulin Aspart Per Unit) 0 units SC ACHS [facility] Stop: 05/09/21 22:47 Last Admin: 04/10/21 09:30 Dose: 10 units Documented by: Insulin Glargine (Insulin Glargine Solostar 100 Units/Ml 3 Ml Pen) 50 units SQ BID [facility] Stop: 05/10/21 08:59 Last Admin: 04/10/21 08:04 Dose: 50 units Documented by: Ipratropium [place] (Ipratropium [place] Neb Soln 0.02% 2.5 Ml Vial) 0.5 mg INH Q6R [facility] Stop: 05/10/21 00:59 Last Admin: 04/10/21 07:31 Dose: 0.5 mg Documented by: Levalbuterol HCl (Levalbuterol 1.25mg/0.5ml Neb) 1.25 mg INH Q6R [facility] Stop: 05/10/21 00:59 Last Admin: 04/10/21 07:32 Dose: 1.25 mg Documented by: Metoprolol Succinate (Metoprolol Succ 50mg Ext Rel Tab) 100 mg PO BID [facility] Stop: 05/10/21 08:59 Last Admin: 04/10/21 07:58 Dose: 100 mg Documented by: Miscellaneous (Carbohydrates For Hypoglycemia ) 15 - 30 gm PO UD PRN PRN Reason: Hypoglycemia Protocol Stop: 05/09/21 22:47 Pantoprazole Sodium (Pantoprazole 40 Mg Tab) 40 mg PO QAM [facility] Stop: 05/10/21 08:59 Last Admin: 04/10/21 07:59 Dose: 40 mg Documented by: Potassium Chloride (Potassium Chloride Crtab 20 Meq Tabcr) 40 meq PO NOW STA Stop: 04/10/21 10:32 Prednisone (Prednisone 20 Mg Tab) 20 mg PO DAILY [facility] Stop: 04/13/21 08:59 Last Admin: 04/10/21 07:56 Dose: 20 mg Documented by: Tramadol HCl (Tramadol Hcl 50 Mg Tablet) 25 mg PO Q4H PRN PRN Reason: Pain Stop: 05/09/21 23:23
[2021-04-10] MEDS ORDERED: PHARMACY GLYCEMIC MGMT CONSULT PRN (11:42)
[2021-04-10] MEDS: DIGOXIN 0.125 MG TAB PO SCH (11:59)
--- NOTE | 2021-04-10 12:30 | Pharmacy Report ---
Pharmacy Glycemic Short Note 2 - Date of Service April 10, 2021 - Glycemic Short BSG Results (Last 24 hours): 04/09/21 04/09/21 04/09/21 15:32 15:40 20:17 Glucose 551 H* POC Glucose 534 H* 405 H* 04/09/21 04/09/21 04/10/21 22:25 22:33 01:05 Glucose 405 H* POC Glucose 374 H* 341 H* 04/10/21 04/10/21 04/10/21 04:42 07:52 11:30 Glucose 276 H POC Glucose 294 H 347 H* 04/10/21 11:32 Glucose POC Glucose 325 H* OUTPATIENT ANTIDIABETIC REGIMEN: * Lantus 36 units SQ BID * Humalog 25 units with meals ASSESSMENT: * Mr Delarosa is a 66 y/o M with a PMH of T2DM insulin dependent who presents with hypertension related to ongoing steroid use. * Patient is familiar to glycemic service. * On presentation, BSG was 551 mg/dL for which he received 10 units IV insulin. BSG by bedtime was 405 mg/dL for which he received Lantus 40 units plus 10 units of Novolog. * Fasting BSG was 294 mg/dL. Patient received Lantus 50 units plus Novolog 10 units. Patient received prednisone 20 mg * Pharmacy consulted around lunchtime. Lunchtime BSG was 347 mg/dL. * Patient's basal needs fluctuate- d/c additional Lantus for now. Previous admissions patient receives between 24-50 units/day. * Tighten Novolog to CF 10 CR 2 with looser scale at bedtime. This is what the patient requires without steroids HOWEVER, patient also has additional basal insulin onboard. During last two admissions, patient has only required 24 units of basal insulin. Therefore with a double of basal insulin, believe that this should help cover steroid hyperglycemia. * Ongoing basal insulin to be determined tomorrow. PLAN FOR INPATIENT GLYCEMIC CONTROL: * Basal insulin * Lantus 50 units this morning then d/c * Bolus insulin * NovoLog per scale ACHS or Q6hrs while NPO * Goal Range: Low 110 mg/dL - High 140 mg/dL * Correction Factor: 10 mg/dL/unit (30 mg/dL/unit at bedtime) * Nutritional / Prandial insulin per carb ratio of 1 unit per 2 grams CHO consumed (carbohydrate ratio of 10 for bedtime) PLAN FOR DISCHARGE: * TBD
[2021-04-10 17:18] LABS: BUN Creatinine Ratio 20.3 (10-20); Creatinine Clr Calc Pharmacy 24.2 ml/min; Est GFR (African American) 19.3 ml/min; Est GFR (Non-African American) 16.6 ml/min
[2021-04-10 17:32] LABS: Beta-Hydroxybutyrate 1.01 mg/dl (0.2-2.81)
[2021-04-10 17:40] LABS: Potassium 4.3 mmol/L (3.5-5.1)
[2021-04-10] MEDS ORDERED: ATORVASTATIN 40 MG TAB PO SCH (21:00)
[2021-04-10] MEDS ORDERED: INSULIN HUMAN REGULAR PER UNIT 4 UNITS in SYRINGE 0 ML IV STA (21:44)
[2021-04-11] MEDS: IPRATROPIUM BROMIDE NEB SOLN 0.02% 2.5 ML VIAL INH SCH ×4 (02:15→19:13)
[2021-04-11] MEDS: LEVALBUTEROL 1.25MG/0.5ML NEB INH SCH ×4 (02:15→19:13)
--- NOTE | 2021-04-11 06:56 | Hospitalist Progress Note ---
Date of Service April 11, 2021 Assessment & Plan (1) Asymptomatic hypertensive urgency: Plan: Secondary to steroid Rx for COPD exacerbation/bronchitis Titrate home BP meds monitor in PCU COPD exacerbation/bronchitis CXR w/o any acute findings procalcitonin 0.22 (negat.) Cont. doxycycline for complicated bronchitis cont. prednisone 20 mg daily Troponin elevation secondary to above in the setting of CKD troponin plataeued at 0.15 (also hx of chronically elev. trop) Pt has no chest pain Echo obtained 04/10 - LV is normal in size. Moderate concentric LVH. Apical wall motion abnormality may reflect pacemaker activation. There is borderline global hypokinesis of the left ventricle. EF 45 to 50%. Aortic valve leaflets are heavily calcified. Severe valvular aortic stenosis. There is moderate mitral annular calcification. Mild mitral regurg. Mild to moderate tricuspid regurg comparison to prior study of November 2019, overall LV systolic function has improved slightly. Hyperglycemic crisis secondary to steroid Rx History poorly controlled DM2 insulin requiring suboptimal control as above recent hemoglobin A1c of 9.21 February 2021 Basal insulin, ISS BG goal 110-140, carb count coverage Pharmacy glycemic control consulted Chronic wounds/calciphylaxis Follows w/ wound care clinic, improving Wound care nurse consult Re: Chronic leg wounds CKD, poss. PAM on CKD baseline Cr 2.5-3 per outpt records, however during previous admission Cr elevated Monitor creatinine response to gentle IV hydration Held home diuretic on admission Cr up at 3.9, now down to 3.1, will discuss further w/ nephrology when ok to restart home torsemide Asymptomatic transaminitis LFTs trending down, hold statin for now liver ultrasound if with worsening Chronic systolic heart failure secondary to nonischemic cardiomyopathy, patient on the dry side Chronic LBBB Hx nonocclusive CAD/PVD as per records/hx CVA A. fib, paced rhythm on on Eliquis Valvular heart disease (severe aortic stenosis, mild MR/TR on recent TTE), surgery contemplated for aortic stenosis once chronic left leg wound healed. Chronic anemia, hemoglobin at baseline cont. to monitor Hgb History medication noncompliance as per records past tobacco abuse DVT prophylaxis.� Eliquis Full code Admission and Anticipated Discharge Date Admission Date: April 09, 2021 Subjective Patient seen in follow-up of hypertensive urgency, hyperglycemia in the setting of steroid use, wounds Currently patient is lying in bed, in no acute distress He is still in emergency room, holding area (B11) Reports his breathing is better, and cough also improved No fevers, chills, chest pain, abdominal pain, nausea vomiting, says wounds are healing well Blood sugars improving now Review of Systems Review of Systems: All systems reviewed & are unremarkable except as noted in Subjective Physical Exam Physical Exam: GENERAL:� obese M in NAD HEENT: NC/AT, Alopecia, pale palpebral conjunctivae NECK : Supple CHEST : Improved breath sounds, no wheezes noted HEART : RRR, +systolic murmur ABDOMEN: Some mild distention, nontender, + bowel sounds EXTREMITIES : Minimal LE swelling, dressing over LLE, violaceous patch RLE, minimal� LE tenderness, moves extremities NEUROLOGIC : Alert and oriented, answering questions appropriately, no facial asymmetry, moves extremities SKIN: Pallor, warm � Results & Data Results & Data ([facility]) Vital Signs (Past 12 Hours) Vital Signs Temp Pulse Resp BP Pulse Ox 04/11/21 03:00 65 18 154/74 H 98 04/11/21 02:15 58 L 20 93 04/10/21 23:00 66 20 151/67 H 97 04/10/21 19:06 88 22 95 04/10/21 19:00 36.8 C 60 18 162/80 H 95 Laboratory Results 04/11/21 04/11/21 04/11/21 Range/Units 11:35 08:46 07:31 WBC (4.8-10.8) K/uL RBC (4.7-6.1) M/uL Hgb (14.0-18.0) g/dL Hct (42-52) % MCV (80-100) fL MCH (25-34) pg MCHC (32-36) g/dL RDW Std Deviation (36.4-46.3) fL RDW Coeff of Joey (11.5-14.5) % Plt Count (130-400) K/uL MPV (7.4-10.4) fL Sodium 141 Cancelled (136-145) mmol/L Potassium 3.7 Cancelled (3.5-5.1) mmol/L Chloride 107 Cancelled (98-107) mmol/L Carbon Dioxide 25 Cancelled (21-32) mmol/L Anion Gap 9.0 Cancelled (3-11) BUN 63 H Cancelled (7-18) mg/dl Creatinine 3.11 H D Cancelled (0.6-1.4) mg/dl Est Cr Clr Drug Dosing 27.7 Cancelled ml/min Est GFR ( Amer) 22.8 Cancelled ml/min Est GFR (Non-Af Amer) 19.7 Cancelled ml/min BUN/Creatinine Ratio 20.4 H Cancelled (10-20) Glucose 244 H Cancelled (70-99) mg/dl POC Glucose 222 H (70-99) mg/dl Calcium 9.4 Cancelled (8.5-10.1) mg/dl Phosphorus 4.8 (2.5-4.9) mg/dl Magnesium 2.3 (1.8-2.4) mg/dl Total Bilirubin 0.5 Cancelled AST 44 H Cancelled ALT 144 H Cancelled Alkaline Phosphatase 188 H Cancelled Troponin I (0-0.045) ng/ml Total Protein 6.6 Cancelled Albumin 3.2 L Cancelled Globulin 3.4 Cancelled Albumin/Globulin Ratio 0.9 Cancelled Beta-Hydroxybutyric Acd (0.2-2.81) mg/dl Procalcitonin (0-0.5) ng/ml 04/11/21 04/11/21 04/10/21 Range/Units 07:31 07:31 23:25 WBC 7.39 (4.8-10.8) K/uL RBC 4.01 L (4.7-6.1) M/uL Hgb 11.1 L (14.0-18.0) g/dL Hct 34.8 L (42-52) % MCV 86.8 (80-100) fL MCH 27.7 (25-34) pg MCHC 31.9 L (32-36) g/dL RDW Std Deviation 49.1 H (36.4-46.3) fL RDW Coeff of Joey 15.2 H (11.5-14.5) % Plt Count 136 (130-400) K/uL MPV 9.5 (7.4-10.4) fL Sodium (136-145) mmol/L Potassium (3.5-5.1) mmol/L Chloride (98-107) mmol/L Carbon Dioxide (21-32) mmol/L Anion Gap (3-11) BUN (7-18) mg/dl Creatinine (0.6-1.4) mg/dl Est Cr Clr Drug Dosing ml/min Est GFR ( Amer) ml/min Est GFR (Non-Af Amer) ml/min BUN/Creatinine Ratio (10-20) Glucose (70-99) mg/dl POC Glucose (70-99) mg/dl Calcium (8.5-10.1) mg/dl Phosphorus (2.5-4.9) mg/dl Magnesium (1.8-2.4) mg/dl Total Bilirubin AST ALT Alkaline Phosphatase Troponin I 0.154 H* (0-0.045) ng/ml Total Protein Albumin Globulin Albumin/Globulin Ratio Beta-Hydroxybutyric Acd (0.2-2.81) mg/dl Procalcitonin 0.22 (0-0.5) ng/ml 04/10/21 04/10/21 04/10/21 Range/Units 21:30 18:08 16:29 WBC (4.8-10.8) K/uL RBC (4.7-6.1) M/uL Hgb (14.0-18.0) g/dL Hct (42-52) % MCV (80-100) fL MCH (25-34) pg MCHC (32-36) g/dL RDW Std Deviation (36.4-46.3) fL RDW Coeff of Joey (11.5-14.5) % Plt Count (130-400) K/uL MPV (7.4-10.4) fL Sodium 137 (136-145) mmol/L Potassium 4.3 D (3.5-5.1) mmol/L Chloride 103 (98-107) mmol/L Carbon Dioxide 23 (21-32) mmol/L Anion Gap 11.0 (3-11) BUN 73 H (7-18) mg/dl Creatinine 3.57 H (0.6-1.4) mg/dl Est Cr Clr Drug Dosing 24.2 ml/min Est GFR ( Amer) 19.3 ml/min Est GFR (Non-Af Amer) 16.6 ml/min BUN/Creatinine Ratio 20.3 H (10-20) Glucose 396 H* (70-99) mg/dl POC Glucose 287 H 379 H* (70-99) mg/dl Calcium 9.0 (8.5-10.1) mg/dl Phosphorus (2.5-4.9) mg/dl Magnesium (1.8-2.4) mg/dl Total Bilirubin AST ALT Alkaline Phosphatase Troponin I (0-0.045) ng/ml Total Protein Albumin Globulin Albumin/Globulin Ratio Beta-Hydroxybutyric Acd 1.01 (0.2-2.81) mg/dl Procalcitonin (0-0.5) ng/ml 04/10/21 04/10/21 Range/Units 13:09 12:12 WBC (4.8-10.8) K/uL RBC (4.7-6.1) M/uL Hgb (14.0-18.0) g/dL Hct (42-52) % MCV (80-100) fL MCH (25-34) pg MCHC (32-36) g/dL RDW Std Deviation (36.4-46.3) fL RDW Coeff of Joey (11.5-14.5) % Plt Count (130-400) K/uL MPV (7.4-10.4) fL Sodium (136-145) mmol/L Potassium (3.5-5.1) mmol/L Chloride (98-107) mmol/L Carbon Dioxide (21-32) mmol/L Anion Gap (3-11) BUN (7-18) mg/dl Creatinine (0.6-1.4) mg/dl Est Cr Clr Drug Dosing ml/min Est GFR ( Amer) ml/min Est GFR (Non-Af Amer) ml/min BUN/Creatinine Ratio (10-20) Glucose (70-99) mg/dl POC Glucose (70-99) mg/dl Calcium (8.5-10.1) mg/dl Phosphorus (2.5-4.9) mg/dl Magnesium (1.8-2.4) mg/dl Total Bilirubin AST ALT Alkaline Phosphatase Troponin I 0.155 H* (0-0.045) ng/ml Total Protein Albumin Globulin Albumin/Globulin Ratio Beta-Hydroxybutyric Acd (0.2-2.81) mg/dl Procalcitonin 0.22 (0-0.5) ng/ml Medications Administered Current Inpatient Medications Acetaminophen (Acetaminophen 325 Mg Tab) 325 mg PO Q6H PRN PRN Reason: Mild Pain Stop: 05/09/21 23:23 Amlodipine Besylate (Amlodipine Besylate 5 Mg Tab) 5 mg PO QAM [facility] Stop: 05/10/21 00:14 Last Admin: 04/10/21 07:55 Dose: 5 mg Documented by: Apixaban (Apixaban 2.5 Mg Tab) 2.5 mg PO BID [facility] Stop: 05/09/21 21:44 Last Admin: 04/10/21 21:49 Dose: 2.5 mg Documented by: Aspirin (Aspirin 81 Mg Ectab) 81 mg PO QAM [facility] Stop: 05/10/21 08:59 Last Admin: 04/10/21 07:57 Dose: 81 mg Documented by: Dextrose (Dextrose 50% 50 Ml Syringe) 25 - 50 ml IV UD PRN; Protocol PRN Reason: Hypoglycemia Protocol Stop: 05/09/21 22:47 Digoxin (Digoxin 0.125 Mg Tab) 0.125 mg PO DAILY@1200 [facility] Stop: 05/10/21 11:59 Last Admin: 04/10/21 11:59 Dose: 0.125 mg Documented by: Doxycycline Hyclate (Doxycycline Hyclate 100 Mg Cap) 100 mg PO BID [facility] Stop: 04/15/21 08:59 Last Admin: 04/10/21 21:49 Dose: 100 mg Documented by: Fluticasone Propionate (Fluticasone Propionate Na Spr 16 Gm Btl) 2 sprays NA DAILY PRN PRN Reason: Nasal Congestion Stop: 05/09/21 23:23 Fluticasone/Vilanterol (Fluticasone/Vilanterol 100/25mcg 14 Puffs/Inhaler) [facility] Stop: 05/10/21 08:59 Last Admin: 04/10/21 07:54 Dose: 1 puffs Documented by: Gabapentin (Gabapentin 100 Mg Cap) 100 mg PO TIDM [facility] Stop: 05/10/21 07:59 Last Admin: 04/10/21 17:16 Dose: 100 mg Documented by: Glucagon (Glucagon For Inj 1 Mg Vial) 1 mg SQ UD PRN; Protocol PRN Reason: Hypoglycemia Protocol Stop: 05/09/21 22:47 Glucose (Glucose 10 Tabs/Tube) 4 - 8 tabs PO UD PRN; Protocol PRN Reason: Hypoglycemia Protocol Stop: 05/09/21 22:47 Glucose (Glucose 40% Gel 15 Gm Tube) 15 - 30 gm PO UD PRN; Protocol PRN Reason: Hypoglycemia Protocol Stop: 05/09/21 22:47 Promethazine HCl 12.5 mg/ (Sodium Chloride) 50.5 mls @ 202 mls/hr IV Q6H PRN PRN Reason: Nausea And Vomiting Stop: 05/09/21 23:23 Insulin Aspart (Insulin Aspart Per Unit) 0 units SC AC [facility] Stop: 05/10/21 11:29 Last Admin: 04/10/21 18:37 Dose: 27 units Documented by: Insulin Aspart (Insulin Aspart Per Unit) 0 units SC HS [facility] Stop: 05/10/21 20:59 Last Admin: 04/10/21 21:56 Dose: 5 units Documented by: Ipratropium Lefor (Ipratropium Lefor Neb Soln 0.02% 2.5 Ml Vial) 0.5 mg INH Q6R [facility] Stop: 05/10/21 00:59 Last Admin: 04/11/21 02:15 Dose: 0.5 mg Documented by: Levalbuterol HCl (Levalbuterol 1.25mg/0.5ml Neb) 1.25 mg INH Q6R [facility] Stop: 05/10/21 00:59 Last Admin: 04/11/21 02:15 Dose: 1.25 mg Documented by: Metoprolol Succinate (Metoprolol Succ 50mg Ext Rel Tab) 100 mg PO BID [facility] Stop: 05/10/21 08:59 Last Admin: 04/10/21 21:50 Dose: 100 mg Documented by: Miscellaneous (Carbohydrates For Hypoglycemia ) 15 - 30 gm PO UD PRN PRN Reason: Hypoglycemia Protocol Stop: 05/09/21 22:47 Miscellaneous Information (Pharmacy Glycemic Mgmt Consult) 1 ea N/A UD PRN PRN Reason: Consult Stop: 05/10/21 11:41 Pantoprazole Sodium (Pantoprazole 40 Mg Tab) 40 mg PO QAM [facility] Stop: 05/10/21 08:59 Last Admin: 04/10/21 07:59 Dose: 40 mg Documented by: Prednisone (Prednisone 20 Mg Tab) 20 mg PO DAILY [facility] Stop: 04/13/21 08:59 Last Admin: 04/10/21 07:56 Dose: 20 mg Documented by: Tramadol HCl (Tramadol Hcl 50 Mg Tablet) 25 mg PO Q4H PRN PRN Reason: Pain Stop: 05/09/21 23:23
--- NOTE | 2021-04-11 07:07 | Electrocardiogram Report ---
Test Reason : Blood Pressure : / mmHG Vent. Rate : 066 BPM Atrial Rate : 062 BPM P-R Int : 000 ms QRS Dur : 168 ms QT Int : 476 ms P-R-T Axes : 000 174 -16 degrees QTc Int : 499 ms Ventricular-paced rhythm Abnormal ECG When compared with ECG of 07-APR-2021 13:12, Vent. rate has increased BY 4 BPM Confirmed by Larry Doll ([id number]) on 04/11/2021 7:06:44 AM Referred By: REFERRED SELF Confirmed By:Larry Doll
[2021-04-11 07:42] LABS: Hematocrit (blood only) 34.8 % (42-52); Hemoglobin 11.1 g/dL (14.0-18.0); Mean Corpuscular Hemoglobin 27.7 pg (25-34); Mean Corpuscular Hgb Conc 31.9 g/dL (32-36); Mean Corpuscular Volume 86.8 fL (80-100); Mean Platelet Volume 9.5 fL (7.4-10.4); Platelet Count 136 K/uL (130-400); RDW Coefficient of Variation 15.2 % (11.5-14.5); RDW Standard Deviation 49.1 fL (36.4-46.3); Red Blood Count 4.01 M/uL (4.7-6.1); White Blood Count 7.39 K/uL (4.8-10.8)
[2021-04-11] MEDS ORDERED: INSULIN GLARGINE SOLOSTAR 100 UNITS/ML 3 ML PEN SC ONE (09:00)
[2021-04-11] MEDS: INSULIN ASPART PER UNIT SC SCH ×4 (09:59→21:03)
[2021-04-11] MEDS: INSULIN HUMAN NPH SC SCH (10:00)
[2021-04-11] MEDS: ASPIRIN 81 MG ECTAB PO SCH (10:16)
[2021-04-11] MEDS: GABAPENTIN 100 MG CAP PO SCH ×3 (10:16→18:18)
[2021-04-11] MEDS: predniSONE 20 MG TAB PO SCH (10:17)
[2021-04-11] MEDS: FLUTICASONE/VILANTEROL 100/25MCG 14 PUFFS/INHALER INH SCH (10:17)
[2021-04-11] MEDS: DOXYCYCLINE HYCLATE 100 MG CAP PO SCH ×2 (10:17→21:43)
[2021-04-11] MEDS: PANTOprazole 40 MG TAB PO SCH (10:17)
[2021-04-11] MEDS: amLODIPine BESYLATE 5 MG TAB PO SCH (10:18)
[2021-04-11] MEDS ORDERED: METOPROLOL TARTRATE 50 MG TAB ONE (10:21)
[2021-04-11 11:22] LABS: Magnesium 2.3 mg/dl (1.8-2.4); Phosphorus 4.8 mg/dl (2.5-4.9)
[2021-04-11] MEDS: METOPROLOL SUCC 50MG EXT REL TAB PO SCH ×2 (12:03→21:21)
[2021-04-11] MEDS: APIXABAN 2.5 MG TAB PO SCH ×2 (12:04→21:21)
[2021-04-11] MEDS: DIGOXIN 0.125 MG TAB PO SCH (12:04)
[2021-04-11 12:10] LABS: Albumin Level 3.2 gm/dl (3.4-5.0); BUN Creatinine Ratio 20.4 (10-20); Calcium 9.4 mg/dl (8.5-10.1); Creatinine Clr Calc Pharmacy 27.7 ml/min; Est GFR (African American) 22.8 ml/min; Est GFR (Non-African American) 19.7 ml/min; Potassium 3.7 mmol/L (3.5-5.1)
[2021-04-11 12:13] LABS: Albumin Globulin Ratio 0.9 (0.9-2); Bilirubin,Total 0.5 mg/dl (0.2-1); Globulin 3.4 gm/dl (2.5-4.0); Total Protein 6.6 gm/dl (6.4-8.2)
--- NOTE | 2021-04-11 13:25 | Pharmacy Report ---
Pharmacy Glycemic Short Note 2 - Date of Service April 11, 2021 - Glycemic Short BSG Results (Last 24 hours): 04/10/21 04/10/21 04/10/21 16:29 18:08 21:30 Glucose 396 H* POC Glucose 379 H* 287 H 04/11/21 04/11/21 04/11/21 07:31 08:46 11:35 Glucose Cancelled 244 H POC Glucose 222 H 04/11/21 13:07 Glucose POC Glucose 198 H OUTPATIENT ANTIDIABETIC REGIMEN: * Lantus 36 units SQ BID * Humalog 25 units with meals ASSESSMENT: 04/11/21 * BSGs yesterday were [id number] mg/dL. * Fasting this morning was 222 mg/dL. And lunch was 198 mg/dL. * Patient received 114 units of insulin yesterday with 50 units of basal and 64 units of bolus. * Will split basal for now .... Lantus 30 units (which is closer to inpatient needs recently) and NPH 20 units (0.2 units/kg for prednisone 20 mg). * Tighten Novolog. Background * Mr Delarosa is a 66 y/o M with a PMH of T2DM insulin dependent who presents with hypertension related to ongoing steroid use. * Patient is familiar to glycemic service. * On presentation, BSG was 551 mg/dL for which he received 10 units IV insulin. BSG by bedtime was 405 mg/dL for which he received Lantus 40 units plus 10 units of Novolog. * Fasting BSG was 294 mg/dL. Patient received Lantus 50 units plus Novolog 10 units. Patient received prednisone 20 mg * Pharmacy consulted around lunchtime. Lunchtime BSG was 347 mg/dL. * Patient's basal needs fluctuate- d/c additional Lantus for now. Previous admissions patient receives between 24-50 units/day. * Tighten Novolog to CF 10 CR 2 with looser scale at bedtime. This is what the patient requires without steroids HOWEVER, patient also has additional basal insulin onboard. During last two admissions, patient has only required 24 units of basal insulin. Therefore with a double of basal insulin, believe that this should help cover steroid hyperglycemia. * Ongoing basal insulin to be determined tomorrow. PLAN FOR INPATIENT GLYCEMIC CONTROL: * Basal insulin * Lantus 30 units SQ daily * NPH 20 units daily with prednisone 20 mg daily * Bolus insulin * NovoLog per scale ACHS or Q6hrs while NPO * Goal Range: Low 110 mg/dL - High 140 mg/dL * Correction Factor: 8 mg/dL/unit (30 mg/dL/unit at bedtime) * Nutritional / Prandial insulin per carb ratio of 1 unit per 1 grams CHO consumed (carbohydrate ratio of 10 for bedtime) PLAN FOR DISCHARGE: * TBD
--- NOTE | 2021-04-11 13:45 | Consultation Report ---
NEPHROLOGY CONSULTATION NOTE DATE OF SERVICE: 04/11/2021 REASON FOR CONSULT: Acute on chronic renal failure. HISTORY OF PRESENT ILLNESS: The patient is a 66-year-old male with known preexisting CKD stage IV, almost approaching V, with a baseline creatinine in the 3.4 range. He presented to the hospital 2 days ago because of very high blood glucose, high blood pressure, cough and shortness of breath. He does not have any recent COVID-19 contacts. He has finished COVID vaccination. He is COVID negative. As an outpatient, he was prescribed prednisone and doxycycline for COPD exacerbation/bronchitis, but that made his blood pressure and blood glucose to get too high. It is worth noting that the patient had a biopsy- proven diagnosis of calciphylaxis in 01/2021 and he was getting sodium thiosulfate at the infusion center as an outpatient and was actually supposed to have one infusion today. His kidney function at this time is very slightly elevated compared to his baseline, but his blood sugar is trending down and blood pressure is also trending down. Otherwise, labs look pretty unremarkable. Chest x-ray did not show any major findings. PAST MEDICAL AND SURGICAL HISTORY: Includes chronic systolic heart failure secondary to nonischemic cardiomyopathy with an EF of 30%, status post ICD, chronic left bundle branch block, peripheral vascular disease, history of stroke, AFib, on Eliquis, valvular heart disease, severe aortic stenosis, hypertension, COPD, obstructive sleep apnea, pulmonary hypertension, type 2 diabetes - requiring insulin, chronic kidney disease, baseline creatinine 3.4, chronic anemia, chronic thrombocytopenia, chronic left leg wound secondary to biopsy-proven diagnosis of calciphylaxis, ongoing thiosulfate treatment as an outpatient, skin cancer removal, adrenalectomy for hypertension, left leg wound debridement. FAMILY HISTORY: Positive for lung cancer, diabetes, heart disease and ESRD. PERSONAL AND SOCIAL HISTORY: Past tobacco use. Occasional alcohol. 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 ALLERGIES: LIST REVIEWED. MEDICATIONS: Home medication list was reviewed in detail and is as per the reconciliation list. REVIEW OF SYSTEMS: Positive for cough, weakness, high blood glucose, high blood pressure.. Otherwise, 12 systems reviewed and negative. PHYSICAL EXAMINATION: GENERAL: Elderly white male who looks older than his age. He is not in overt respiratory distress at this time. He is awake, alert, oriented and was able to give me a detailed account of his medical problem. VITAL SIGNS: Most recent blood pressure 156/68, pulse rate 75, temperature 36.8, 98% on CPAP. HEENT: Mucous membranes are moist. NECK: Supple. No jugular venous distention. CHEST: Bilateral decreased breath sound, but very poor quality limiting the quality of exam. CARDIOVASCULAR: S1 and S2 regular. Systolic murmur heard. ABDOMEN: Soft, nontender. EXTREMITIES: Show no pedal edema. He does have a skin lesion in his calf muscle. LABORATORY TEST: Hemoglobin 11.1, WBC count 7.39, hematocrit 34.8, platelet count 136. Most recent blood work shows a creatinine of 3.11, BUN is 63, sodium 141, potassium 3.7, phosphorus 4.8, magnesium 2.3, albumin 3.2. At the time of his admission, his creatinine was 3.86. At baseline, he runs around 3.4. Chest x-ray unremarkable. Echocardiogram pending. ASSESSMENT AND PLAN: A 66-year-old male with chronic kidney disease stage IV, with recent diagnosis of calciphylaxis and now is undergoing twice a week IV infusion of sodium thiosulfate, now admitted with very high blood glucose and blood pressure following the start of prednisone for chronic obstructive pulmonary disease flare-up. 1. Renal failure: This is predominantly chronic at this time, in fact his most recent blood work shows a creatinine of 3.1, which is slightly better than his most recent baseline of 3.4. No further workup is needed from renal standpoint. 2. Hypertension and hyperglycemia: Blood pressure is trending down. I would put him back on his torsemide, which he takes as an outpatient. If possible, consider decreasing the dose of prednisone. Otherwise, we will continue the medication as it is. 3. Calciphylaxis: This is a biopsy-proven diagnosis and was getting sodium thiosulfate 2 times a week. It does not appear that this medication is in the formulary of the hospital. We will discuss with the pharmacy and if possible, we will give one dose while he is inpatient today, but if not, he is scheduled to have another infusion on 04/15, which is reasonable. We will restart his outpatient torsemide dose at 40 bid. Job ID: [id number] [facility]
[2021-04-11] MEDS: TORSEMIDE 10 MG TAB PO SCH (18:40)
[2021-04-12] MEDS: IPRATROPIUM BROMIDE NEB SOLN 0.02% 2.5 ML VIAL INH SCH ×4 (01:11→19:55)
[2021-04-12] MEDS: LEVALBUTEROL 1.25MG/0.5ML NEB INH SCH ×4 (01:11→19:55)
[2021-04-12 05:39] LABS: Hemoglobin 11.2 g/dL (14.0-18.0); Mean Corpuscular Hemoglobin 27.8 pg (25-34); Mean Corpuscular Volume 86.8 fL (80-100); Mean Platelet Volume 9.3 fL (7.4-10.4); Platelet Count 146 K/uL (130-400); RDW Coefficient of Variation 15.2 % (11.5-14.5); RDW Standard Deviation 48.9 fL (36.4-46.3); Red Blood Count 4.03 M/uL (4.7-6.1); White Blood Count 8.53 K/uL (4.8-10.8)
[2021-04-12 06:02] LABS: Albumin Level 3.1 gm/dl (3.4-5.0); BUN Creatinine Ratio 19.4 (10-20); Calcium 9.4 mg/dl (8.5-10.1); Creatinine Clr Calc Pharmacy 27.6 ml/min; Est GFR (African American) 23.2 ml/min; Magnesium 2.4 mg/dl (1.8-2.4); Potassium 3.8 mmol/L (3.5-5.1)
[2021-04-12 06:07] LABS: Albumin Globulin Ratio 0.8 (0.9-2); Bilirubin,Total 0.7 mg/dl (0.2-1); Globulin 3.8 gm/dl (2.5-4.0); Total Protein 6.9 gm/dl (6.4-8.2)
[2021-04-12 07:52] LABS: Estimated Average Glucose 243 mg/dl; Hemoglobin A1C 10.1 % (4.5-5.6)
--- NOTE | 2021-04-12 08:15 | Hospitalist Progress Note ---
Date of Service April 12, 2021 Assessment & Plan (1) Asymptomatic hypertensive urgency: Plan: Secondary to steroid Rx for COPD exacerbation/bronchitis Titrate home BP meds monitor in PCU COPD exacerbation/bronchitis CXR w/o any acute findings procalcitonin 0.22 (negat.) Cont. doxycycline for complicated bronchitis cont. prednisone 20 mg daily Troponin elevation secondary to above in the setting of CKD troponin plataeued at 0.15 (also hx of chronically elev. trop) Pt has no chest pain Echo obtained 04/10 - LV is normal in size. Moderate concentric LVH. Apical wall motion abnormality may reflect pacemaker activation. There is borderline global hypokinesis of the left ventricle. EF 45 to 50%. Aortic valve leaflets are heavily calcified. Severe valvular aortic stenosis. There is moderate mitral annular calcification. Mild mitral regurg. Mild to moderate tricuspid regurg comparison to prior study of November 2019, overall LV systolic function has improved slightly. Hyperglycemic crisis secondary to steroid Rx History poorly controlled DM2 insulin requiring suboptimal control as above recent hemoglobin A1c of 9.21 February 2021 Basal insulin, ISS BG goal 110-140, carb count coverage Pharmacy glycemic control consulted Chronic wounds/calciphylaxis Follows w/ wound care clinic, improving Wound care nurse consult Re: Chronic leg wounds CKD, poss. PAM on CKD baseline Cr 2.5-3 per outpt records, however during previous admission Cr elevated Monitor creatinine response to gentle IV hydration Held home diuretic on admission Cr up at 3.9, now down to 3.1, will discuss further w/ nephrology when ok to restart home torsemide Asymptomatic transaminitis LFTs trending down, hold statin for now liver ultrasound if with worsening Chronic systolic heart failure secondary to nonischemic cardiomyopathy, patient on the dry side Chronic LBBB Hx nonocclusive CAD/PVD as per records/hx CVA A. fib, paced rhythm on on Eliquis Valvular heart disease (severe aortic stenosis, mild MR/TR on recent TTE), surgery contemplated for aortic stenosis once chronic left leg wound healed. Chronic anemia, hemoglobin at baseline cont. to monitor Hgb History medication noncompliance as per records past tobacco abuse DVT prophylaxis.� Eliquis Full code Admission and Anticipated Discharge Date Admission Date: April 09, 2021 Subjective Patient seen in follow-up of hypertensive urgency, hyperglycemia in the setting of steroid use, wounds Currently patient is lying in bed, in no acute distress He is still in emergency room, holding area (B11) Reports his breathing is better, and cough also improved, currently on RA No fevers, chills, chest pain, abdominal pain, nausea vomiting Review of Systems Review of Systems: All systems reviewed & are unremarkable except as noted in Subjective Physical Exam Physical Exam: GENERAL:� obese M in NAD HEENT: NC/AT, Alopecia, pale palpebral conjunctivae NECK : Supple CHEST : Improved breath sounds, no wheezes noted HEART : RRR, +systolic murmur ABDOMEN: Some mild distention, nontender, + bowel sounds EXTREMITIES : Minimal LE swelling, dressing over LLE, violaceous patch RLE, minimal� LE tenderness, moves extremities NEUROLOGIC : Alert and oriented, answering questions appropriately, no facial asymmetry, moves extremities SKIN: Pallor, warm � Results & Data Results & Data ([facility]) Vital Signs (Past 12 Hours) Vital Signs Pulse Resp BP Pulse Ox Pulse Ox 04/12/21 05:30 95 04/12/21 01:51 70 20 168/78 H 99 04/12/21 01:11 69 18 96 Laboratory Results 04/12/21 04/12/21 04/12/21 Range/Units 05:25 05:25 05:25 WBC 8.53 (4.8-10.8) K/uL RBC 4.03 L (4.7-6.1) M/uL Hgb 11.2 L (14.0-18.0) g/dL Hct 35.0 L (42-52) % MCV 86.8 (80-100) fL MCH 27.8 (25-34) pg MCHC 32.0 (32-36) g/dL RDW Std Deviation 48.9 H (36.4-46.3) fL RDW Coeff of Joey 15.2 H (11.5-14.5) % Plt Count 146 (130-400) K/uL MPV 9.3 (7.4-10.4) fL Sodium 139 Potassium 3.8 Chloride 106 Carbon Dioxide 26 Anion Gap 7.0 BUN 59 H Creatinine 3.07 H Est Cr Clr Drug Dosing 27.6 Est GFR ( Amer) 23.2 Est GFR (Non-Af Amer) 20.0 BUN/Creatinine Ratio 19.4 Glucose 180 H POC Glucose (70-99) mg/dl Estimat Average Glucose 243 mg/dl Hemoglobin A1c 10.1 H (4.5-5.6) % Calcium 9.4 Phosphorus 4.0 (2.5-4.9) mg/dl Magnesium 2.4 (1.8-2.4) mg/dl Total Bilirubin 0.7 AST 36 ALT 122 H Alkaline Phosphatase 182 H Total Protein 6.9 Albumin 3.1 L Globulin 3.8 Albumin/Globulin Ratio 0.8 L Procalcitonin (0-0.5) ng/ml 04/11/21 04/11/21 04/11/21 Range/Units 20:56 17:21 13:07 WBC (4.8-10.8) K/uL RBC (4.7-6.1) M/uL Hgb (14.0-18.0) g/dL Hct (42-52) % MCV (80-100) fL MCH (25-34) pg MCHC (32-36) g/dL RDW Std Deviation (36.4-46.3) fL RDW Coeff of Joey (11.5-14.5) % Plt Count (130-400) K/uL MPV (7.4-10.4) fL Sodium Potassium Chloride Carbon Dioxide Anion Gap BUN Creatinine Est Cr Clr Drug Dosing Est GFR ( Amer) Est GFR (Non-Af Amer) BUN/Creatinine Ratio Glucose POC Glucose 135 H 145 H 198 H (70-99) mg/dl Estimat Average Glucose mg/dl Hemoglobin A1c (4.5-5.6) % Calcium Phosphorus (2.5-4.9) mg/dl Magnesium (1.8-2.4) mg/dl Total Bilirubin AST ALT Alkaline Phosphatase Total Protein Albumin Globulin Albumin/Globulin Ratio Procalcitonin (0-0.5) ng/ml 04/11/21 04/11/21 04/11/21 Range/Units 11:35 08:46 07:31 WBC (4.8-10.8) K/uL RBC (4.7-6.1) M/uL Hgb (14.0-18.0) g/dL Hct (42-52) % MCV (80-100) fL MCH (25-34) pg MCHC (32-36) g/dL RDW Std Deviation (36.4-46.3) fL RDW Coeff of Joey (11.5-14.5) % Plt Count (130-400) K/uL MPV (7.4-10.4) fL Sodium 141 Cancelled Potassium 3.7 Cancelled Chloride 107 Cancelled Carbon Dioxide 25 Cancelled Anion Gap 9.0 Cancelled BUN 63 H Cancelled Creatinine 3.11 H D Cancelled Est Cr Clr Drug Dosing 27.7 Cancelled Est GFR ( Amer) 22.8 Cancelled Est GFR (Non-Af Amer) 19.7 Cancelled BUN/Creatinine Ratio 20.4 H Cancelled Glucose 244 H Cancelled POC Glucose 222 H (70-99) mg/dl Estimat Average Glucose mg/dl Hemoglobin A1c (4.5-5.6) % Calcium 9.4 Cancelled Phosphorus 4.8 (2.5-4.9) mg/dl Magnesium 2.3 (1.8-2.4) mg/dl Total Bilirubin 0.5 Cancelled AST 44 H Cancelled ALT 144 H Cancelled Alkaline Phosphatase 188 H Cancelled Total Protein 6.6 Cancelled Albumin 3.2 L Cancelled Globulin 3.4 Cancelled Albumin/Globulin Ratio 0.9 Cancelled Procalcitonin (0-0.5) ng/ml 04/11/21 Range/Units 07:31 WBC (4.8-10.8) K/uL RBC (4.7-6.1) M/uL Hgb (14.0-18.0) g/dL Hct (42-52) % MCV (80-100) fL MCH (25-34) pg MCHC (32-36) g/dL RDW Std Deviation (36.4-46.3) fL RDW Coeff of Joey (11.5-14.5) % Plt Count (130-400) K/uL MPV (7.4-10.4) fL Sodium Potassium Chloride Carbon Dioxide Anion Gap BUN Creatinine Est Cr Clr Drug Dosing Est GFR ( Amer) Est GFR (Non-Af Amer) BUN/Creatinine Ratio Glucose POC Glucose (70-99) mg/dl Estimat Average Glucose mg/dl Hemoglobin A1c (4.5-5.6) % Calcium Phosphorus (2.5-4.9) mg/dl Magnesium (1.8-2.4) mg/dl Total Bilirubin AST ALT Alkaline Phosphatase Total Protein Albumin Globulin Albumin/Globulin Ratio Procalcitonin 0.22 (0-0.5) ng/ml
[2021-04-12] MEDS: ASPIRIN 81 MG ECTAB PO SCH (08:30)
[2021-04-12] MEDS: GABAPENTIN 100 MG CAP PO SCH ×3 (08:30→17:24)
[2021-04-12] MEDS: DOXYCYCLINE HYCLATE 100 MG CAP PO SCH ×2 (08:30→21:15)
[2021-04-12] MEDS ORDERED: INSULIN GLARGINE SOLOSTAR 100 UNITS/ML 3 ML PEN SC ONE (09:00)
[2021-04-12] MEDS: APIXABAN 2.5 MG TAB PO SCH ×2 (09:47→21:14)
[2021-04-12] MEDS: FLUTICASONE/VILANTEROL 100/25MCG 14 PUFFS/INHALER INH SCH (09:50)
[2021-04-12] MEDS: METOPROLOL SUCC 50MG EXT REL TAB PO SCH ×2 (09:52→21:17)
[2021-04-12] MEDS: PANTOprazole 40 MG TAB PO SCH (09:53)
[2021-04-12] MEDS: predniSONE 20 MG TAB PO SCH (09:53)
[2021-04-12] MEDS: TORSEMIDE 10 MG TAB PO SCH ×2 (09:54→17:24)
[2021-04-12] MEDS: INSULIN HUMAN NPH SC SCH (10:07)
[2021-04-12] MEDS: INSULIN ASPART PER UNIT SC SCH ×4 (10:22→21:01)
[2021-04-12] MEDS: hydrALAZINE HCL 25 MG TAB PO SCH ×2 (10:23→21:16)
[2021-04-12] MEDS: DIGOXIN 0.125 MG TAB PO SCH (11:54)
--- NOTE | 2021-04-12 13:14 | Pharmacy Report ---
Pharmacy Glycemic Short Note 2 - Date of Service April 12, 2021 - Glycemic Short BSG Results (Last 24 hours): 04/11/21 04/11/21 04/11/21 13:07 17:21 20:56 Glucose POC Glucose 198 H 145 H 135 H 04/12/21 04/12/21 04/12/21 05:25 09:04 11:03 Glucose 180 H POC Glucose 181 H 309 H* OUTPATIENT ANTIDIABETIC REGIMEN: * Lantus 36 units SQ BID * Humalog 25 units with meals ASSESSMENT: 04/12/21 * BSGs yesterday were [phone] mg/dL. * Fasting this morning was 181 mg/dL. And lunch was 309 mg/dL. Lunch was elevated due to morning Novolog administration at 1030. * Patient received 133 units of insulin yesterday with 50 units of basal and 83 units of bolus. * Will continue to split basal for now .... Lantus 24 units (reflective of inpatient needs previously) and NPH 20 units (0.2 units/kg for prednisone 20 mg). Last dose of NPH today with prednisone. * Continue Novolog. Looser Novolog to start tomorrow. 04/11/21 * BSGs yesterday were [phone] mg/dL. * Fasting this morning was 222 mg/dL. And lunch was 198 mg/dL. * Patient received 114 units of insulin yesterday with 50 units of basal and 64 units of bolus. * Will split basal for now .... Lantus 30 units (which is closer to inpatient needs recently) and NPH 20 units (0.2 units/kg for prednisone 20 mg). * Tighten Novolog. Background * Mr Delarosa is a 66 y/o M with a PMH of T2DM insulin dependent who presents with hypertension related to ongoing steroid use. * Patient is familiar to glycemic service. * On presentation, BSG was 551 mg/dL for which he received 10 units IV insulin. BSG by bedtime was 405 mg/dL for which he received Lantus 40 units plus 10 units of Novolog. * Fasting BSG was 294 mg/dL. Patient received Lantus 50 units plus Novolog 10 units. Patient received prednisone 20 mg * Pharmacy consulted around lunchtime. Lunchtime BSG was 347 mg/dL. * Patient's basal needs fluctuate- d/c additional Lantus for now. Previous admissions patient receives between 24-50 units/day. * Tighten Novolog to CF 10 CR 2 with looser scale at bedtime. This is what the patient requires without steroids HOWEVER, patient also has additional basal insulin onboard. During last two admissions, patient has only required 24 units of basal insulin. Therefore with a double of basal insulin, believe that this should help cover steroid hyperglycemia. * Ongoing basal insulin to be determined tomorrow. PLAN FOR INPATIENT GLYCEMIC CONTROL: * Basal insulin * Lantus 24 units SQ daily * NPH 20 units daily with prednisone 20 mg daily * Bolus insulin * NovoLog per scale ACHS or Q6hrs while NPO * Goal Range: Low 110 mg/dL - High 140 mg/dL * Correction Factor: 12 mg/dL/unit (30 mg/dL/unit at bedtime) --> transition to 10 mg/dL/unit tomorrow * Nutritional / Prandial insulin per carb ratio of 1 unit per 1 grams CHO consumed (carbohydrate ratio of 10 for bedtime) --> transition to 1 unit per 2 grams of CHO consumed tomorrow PLAN FOR DISCHARGE: * TBD
[2021-04-12] MEDS: guaiFENesin 600 MG TABCR PO SCH ×2 (17:26→21:15)
[2021-04-13] MEDS: LEVALBUTEROL 1.25MG/0.5ML NEB INH SCH ×2 (01:14→08:02)
[2021-04-13] MEDS: IPRATROPIUM BROMIDE NEB SOLN 0.02% 2.5 ML VIAL INH SCH ×2 (01:14→08:02)
[2021-04-13 06:01] LABS: Albumin Level 3.2 gm/dl (3.4-5.0); Calcium 9.4 mg/dl (8.5-10.1); Creatinine Clr Calc Pharmacy 25.2 ml/min; Est GFR (African American) 20.8 ml/min; Est GFR (Non-African American) 17.9 ml/min
[2021-04-13 06:04] LABS: Albumin Globulin Ratio 0.8 (0.9-2); Bilirubin,Total 0.6 mg/dl (0.2-1); Globulin 3.8 gm/dl (2.5-4.0)
--- NOTE | 2021-04-13 07:40 | Hospitalist Progress Note ---
Date of Service April 13, 2021 Assessment & Plan (1) Asymptomatic hypertensive urgency: Plan: Secondary to steroid Rx for COPD exacerbation/bronchitis Titrate home BP meds BP well controlled now COPD exacerbation/bronchitis CXR w/o any acute findings procalcitonin 0.22 (negat.) Cont. doxycycline for complicated bronchitis cont. prednisone 20 mg daily Clinically patient is much improved, not requiring any oxygen, minimal cough, no shortness of breath Troponin elevation secondary to above in the setting of CKD troponin plataeued at 0.15 (also hx of chronically elev. trop) Pt has no chest pain Echo obtained 04/10 - LV is normal in size. Moderate concentric LVH. Apical wall motion abnormality may reflect pacemaker activation. There is borderline global hypokinesis of the left ventricle. EF 45 to 50%. Aortic valve leaflets are heavily calcified. Severe valvular aortic stenosis. There is moderate mitral annular calcification. Mild mitral regurg. Mild to moderate tricuspid regurg comparison to prior study of November 2019, overall LV systolic function has improved slightly. Hyperglycemic crisis secondary to steroid Rx History poorly controlled DM2 insulin requiring suboptimal control as above recent hemoglobin A1c of 9.21 February 2021 Basal insulin, ISS BG goal 110-140, carb count coverage Pharmacy glycemic control consulted Chronic wounds/calciphylaxis Follows w/ wound care clinic, improving Wound care nurse consult Re: Chronic leg wounds CKD, poss. PAM on CKD baseline Cr 2.5-3 per outpt records, however during previous admission Cr elevated Monitor creatinine response to gentle IV hydration Held home diuretic on admission Cr up at 3.9, now down to 3.1-3.4 Discussed w/ nephrology - pt is about his baseline, restarted torsemide at 20 BID while inpt Asymptomatic transaminitis LFTs trending down, hold statin for now liver ultrasound if with worsening Chronic systolic heart failure secondary to nonischemic cardiomyopathy, patient on the dry side Chronic LBBB Hx nonocclusive CAD/PVD as per records/hx CVA A. fib, paced rhythm on on Eliquis Valvular heart disease (severe aortic stenosis, mild MR/TR on recent TTE), surgery contemplated for aortic stenosis once chronic left leg wound healed. Chronic anemia, hemoglobin at baseline cont. to monitor Hgb History medication noncompliance as per records past tobacco abuse DVT prophylaxis.� Eliquis Full code Admission and Anticipated Discharge Date Admission Date: April 09, 2021 Subjective Patient seen in follow-up of hypertensive urgency, hyperglycemia in the setting of steroid use, wounds Currently patient is lying in bed, in no acute distress Reports his breathing is much better, and cough also improved, currently on RA, he is inquiring about going home No fevers, chills, chest pain, abdominal pain, nausea vomiting Review of Systems Review of Systems: All systems reviewed & are unremarkable except as noted in Subjective Physical Exam Physical Exam: GENERAL:� obese M in NAD HEENT: NC/AT, Alopecia, pale palpebral conjunctivae NECK : Supple CHEST : Improved breath sounds, minimal wheezes noted HEART : RRR, +systolic murmur ABDOMEN: Some mild distention, nontender, + bowel sounds EXTREMITIES : Minimal LE swelling, dressing over LLE, violaceous patch RLE, minimal� LE tenderness, moves extremities NEUROLOGIC : Alert and oriented, answering questions appropriately, no facial asymmetry, moves extremities SKIN: Pallor, warm � Results & Data Results & Data ([facility]) Vital Signs (Past 12 Hours) Vital Signs Pulse Resp BP BP Pulse Ox 04/13/21 03:02 68 18 161/83 H 96 04/13/21 01:15 65 18 95 04/12/21 21:00 76 18 164/80 H 97 Laboratory Results 04/13/21 04/12/21 04/12/21 Range/Units 05:20 20:35 17:52 Sodium 140 (136-145) mmol/L Potassium 4.0 (3.5-5.1) mmol/L Chloride 105 (98-107) mmol/L Carbon Dioxide 26 (21-32) mmol/L Anion Gap 9.0 (3-11) BUN 64 H (7-18) mg/dl Creatinine 3.36 H (0.6-1.4) mg/dl Est Cr Clr Drug Dosing 25.2 ml/min Est GFR ( Amer) 20.8 ml/min Est GFR (Non-Af Amer) 17.9 ml/min BUN/Creatinine Ratio 19.0 (10-20) Glucose 197 H (70-99) mg/dl POC Glucose 101 H 137 H (70-99) mg/dl Estimat Average Glucose mg/dl Hemoglobin A1c (4.5-5.6) % Calcium 9.4 (8.5-10.1) mg/dl Total Bilirubin 0.6 (0.2-1) mg/dl AST 30 (15-37) U/L ALT 100 H (12-78) Alkaline Phosphatase 182 H (45-117) U/L Total Protein 7.0 (6.4-8.2) gm/dl Albumin 3.2 L (3.4-5.0) gm/dl Globulin 3.8 (2.5-4.0) gm/dl Albumin/Globulin Ratio 0.8 L (0.9-2) 04/12/21 04/12/21 04/12/21 Range/Units 13:29 11:03 09:04 Sodium (136-145) mmol/L Potassium (3.5-5.1) mmol/L Chloride (98-107) mmol/L Carbon Dioxide (21-32) mmol/L Anion Gap (3-11) BUN (7-18) mg/dl Creatinine (0.6-1.4) mg/dl Est Cr Clr Drug Dosing ml/min Est GFR ( Amer) ml/min Est GFR (Non-Af Amer) ml/min BUN/Creatinine Ratio (10-20) Glucose (70-99) mg/dl POC Glucose 272 H 309 H* 181 H (70-99) mg/dl Estimat Average Glucose mg/dl Hemoglobin A1c (4.5-5.6) % Calcium (8.5-10.1) mg/dl Total Bilirubin (0.2-1) mg/dl AST (15-37) U/L ALT (12-78) Alkaline Phosphatase (45-117) U/L Total Protein (6.4-8.2) gm/dl Albumin (3.4-5.0) gm/dl Globulin (2.5-4.0) gm/dl Albumin/Globulin Ratio (0.9-2) 04/12/21 Range/Units 05:25 Sodium (136-145) mmol/L Potassium (3.5-5.1) mmol/L Chloride (98-107) mmol/L Carbon Dioxide (21-32) mmol/L Anion Gap (3-11) BUN (7-18) mg/dl Creatinine (0.6-1.4) mg/dl Est Cr Clr Drug Dosing ml/min Est GFR ( Amer) ml/min Est GFR (Non-Af Amer) ml/min BUN/Creatinine Ratio (10-20) Glucose (70-99) mg/dl POC Glucose (70-99) mg/dl Estimat Average Glucose 243 mg/dl Hemoglobin A1c 10.1 H (4.5-5.6) % Calcium (8.5-10.1) mg/dl Total Bilirubin (0.2-1) mg/dl AST (15-37) U/L ALT (12-78) Alkaline Phosphatase (45-117) U/L Total Protein (6.4-8.2) gm/dl Albumin (3.4-5.0) gm/dl Globulin (2.5-4.0) gm/dl Albumin/Globulin Ratio (0.9-2) Medications Administered Current Inpatient Medications Acetaminophen (Acetaminophen 325 Mg Tab) 325 mg PO Q6H PRN PRN Reason: Mild Pain Stop: 05/09/21 23:23 Amlodipine Besylate (Amlodipine Besylate 5 Mg Tab) [facility] Stop: 05/10/21 00:14 Last Admin: 04/11/21 10:18 Dose: 5 mg Documented by: Apixaban (Apixaban 2.5 Mg Tab) 2.5 mg PO BID [facility] Stop: 05/09/21 21:44 Last Admin: 04/12/21 21:14 Dose: 2.5 mg Documented by: Aspirin (Aspirin 81 Mg Ectab) [facility] Stop: 05/10/21 08:59 Last Admin: 04/12/21 08:30 Dose: 81 mg Documented by: Dextrose (Dextrose 50% 50 Ml Syringe) 25 - 50 ml IV UD PRN; Protocol PRN Reason: Hypoglycemia Protocol Stop: 05/09/21 22:47 Digoxin (Digoxin 0.125 Mg Tab) 0.125 mg PO DAILY@1200 [facility] Stop: 05/10/21 11:59 Last Admin: 04/12/21 11:54 Dose: 0.125 mg Documented by: Doxycycline Hyclate (Doxycycline Hyclate 100 Mg Cap) 100 mg PO BID [facility] Stop: 04/15/21 08:59 Last Admin: 04/12/21 21:15 Dose: 100 mg Documented by: Fluticasone Propionate (Fluticasone Propionate Na Spr 16 Gm Btl) 2 sprays NA DAILY PRN PRN Reason: Nasal Congestion Stop: 05/09/21 23:23 Fluticasone/Vilanterol (Fluticasone/Vilanterol 100/25mcg 14 Puffs/Inhaler) 1 puffs INH QAM [facility] Stop: 05/10/21 08:59 Last Admin: 04/12/21 09:50 Dose: 1 puffs Documented by: Gabapentin (Gabapentin 100 Mg Cap) 100 mg PO TIDM [facility] Stop: 05/10/21 07:59 Last Admin: 04/12/21 17:24 Dose: 100 mg Documented by: Glucagon (Glucagon For Inj 1 Mg Vial) 1 mg SQ UD PRN; Protocol PRN Reason: Hypoglycemia Protocol Stop: 05/09/21 22:47 Glucose (Glucose 10 Tabs/Tube) 4 - 8 tabs PO UD PRN; Protocol PRN Reason: Hypoglycemia Protocol Stop: 05/09/21 22:47 Glucose (Glucose 40% Gel 15 Gm Tube) 15 - 30 gm PO UD PRN; Protocol PRN Reason: Hypoglycemia Protocol Stop: 05/09/21 22:47 Guaifenesin (Guaifenesin 600 Mg Tabcr) 600 mg PO Q12 [facility] Stop: 05/12/21 17:29 Last Admin: 04/12/21 21:15 Dose: 600 mg Documented by: Hydralazine HCl (Hydralazine Hcl 25 Mg Tab) 75 mg PO BID [facility] Stop: 05/12/21 08:59 Last Admin: 04/12/21 21:16 Dose: 75 mg Documented by: Promethazine HCl 12.5 mg/ (Sodium Chloride) 50.5 mls @ 202 mls/hr IV Q6H PRN PRN Reason: Nausea And Vomiting Stop: 05/09/21 23:23 Insulin Aspart (Insulin Aspart Per Unit) 0 units SC HS [facility] Stop: 05/10/21 20:59 Last Admin: 04/12/21 21:01 Dose: Not Given Documented by: Insulin Aspart (Insulin Aspart Per Unit) 0 units SC AC [facility] Stop: 05/13/21 07:29 Ipratropium [place] (Ipratropium [place] Neb Soln 0.02% 2.5 Ml Vial) 0.5 mg INH Q6R [facility] Stop: 05/10/21 00:59 Last Admin: 04/13/21 01:14 Dose: 0.5 mg Documented by: Levalbuterol HCl (Levalbuterol 1.25mg/0.5ml Neb) 1.25 mg INH Q6R [facility] Stop: 05/10/21 00:59 Last Admin: 04/13/21 01:14 Dose: 1.25 mg Documented by: Metoprolol Succinate (Metoprolol Succ 50mg Ext Rel Tab) 100 mg PO BID [facility] Stop: 05/10/21 08:59 Last Admin: 04/12/21 21:17 Dose: 100 mg Documented by: Miscellaneous (Carbohydrates For Hypoglycemia ) 15 - 30 gm PO UD PRN PRN Reason: Hypoglycemia Protocol Stop: 05/09/21 22:47 Miscellaneous Information (Pharmacy Glycemic Mgmt Consult) 1 ea N/A UD PRN PRN Reason: Consult Stop: 05/10/21 11:41 Pantoprazole Sodium (Pantoprazole 40 Mg Tab) 40 mg PO QAM [facility] Stop: 05/10/21 08:59 Last Admin: 04/12/21 09:53 Dose: 40 mg Documented by: Prednisone (Prednisone 20 Mg Tab) 20 mg PO DAILY [facility] Stop: 04/13/21 08:59 Last Admin: 04/12/21 09:53 Dose: 20 mg Documented by: Torsemide (Torsemide 10 Mg Tab) 20 mg PO [id number] [facility] Stop: 05/11/21 16:59 Last Admin: 04/12/21 17:24 Dose: 20 mg Documented by: Tramadol HCl (Tramadol Hcl 50 Mg Tablet) 25 mg PO Q4H PRN PRN Reason: Pain Stop: 05/09/21 23:23
[2021-04-13] MEDS ORDERED: INSULIN GLARGINE SOLOSTAR 100 UNITS/ML 3 ML PEN SC SCH (09:00)
[2021-04-13] MEDS: PANTOprazole 40 MG TAB PO SCH (09:23)
[2021-04-13] MEDS: amLODIPine BESYLATE 5 MG TAB PO SCH (09:23)
[2021-04-13] MEDS: TORSEMIDE 10 MG TAB PO SCH (09:24)
[2021-04-13] MEDS: ASPIRIN 81 MG ECTAB PO SCH (09:24)
[2021-04-13] MEDS: GABAPENTIN 100 MG CAP PO SCH ×2 (09:24→13:59)
[2021-04-13] MEDS: guaiFENesin 600 MG TABCR PO SCH (09:33)
[2021-04-13] MEDS: DOXYCYCLINE HYCLATE 100 MG CAP PO SCH (09:33)
[2021-04-13] MEDS: hydrALAZINE HCL 25 MG TAB PO SCH (09:33)
[2021-04-13] MEDS: APIXABAN 2.5 MG TAB PO SCH (09:55)
[2021-04-13] MEDS: FLUTICASONE/VILANTEROL 100/25MCG 14 PUFFS/INHALER INH SCH (09:55)
[2021-04-13] MEDS: METOPROLOL SUCC 50MG EXT REL TAB PO SCH (09:55)
[2021-04-13] MEDS: INSULIN ASPART PER UNIT SC SCH ×2 (09:58→13:54)
[2021-04-13] MEDS: DIGOXIN 0.125 MG TAB PO SCH (13:58)
--- NOTE | 2021-04-13 14:19 | Discharge Summary ---
Date of Service April 13, 2021 Admission HPI Per Admitting Provider History obtained from patient, , and records. Medical history significant for chronic systolic heart failure secondary to nonischemic cardiomyopathy (EF of 30-34%, TTE 2020) status post ICD, chronic LBBB, hx nonocclusive CAD, PVD as per records, hx CVA, A. 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 Mild to moderate PAD on work-up. Patient not a candidate for endovascular intervention secondary to CKD asked for vascular surgery. Wound CS growing gram-negative rods. Patient completed antibiotic course. Last week, patient noted junky cough symptoms associated with chest pain on coughing and some shortness of breath. No known recent COVID-19 contacts. Patient completed COVID-19 vaccination. Patient seen at the ER 2 days ago. Patient prescribed prednisone and doxycycline course for COPD exacerbation/bronchitis. Persistent cough symptoms at home, denies aspiration. Blood sugar 500s at home. Usual shortness of breath. Usual chest pain from coughing as per patient. No abdominal pain, no fluid retention as per patient. Patient directed by PCP to ER for further evaluation. Initial SBP at the ER 200s. IV insulin administered at the ER for initial blood sugar of 551 Medical History as above Last follow-up at [facility] wound care clinic 3 weeks ago. Chronic LLE open wound attributed to calciphylaxis. Improving wound. New developing area right posterior leg. Wound dressed during visit. Primary goal remains wound healing as per documentation. 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� Admission Exam Per Admitting Provider GENERAL:� obese, no respiratory distress SKIN: Pallor, warm HEENT: Alopecia, pale palpebral conjunctivae, no ptosis, dry buccal mucosa NECK : Supple, short neck, no tenderness CHEST : Decreased breath sounds, expiratory wheezes, no tenderness HEART : RRR, systolic murmur over second best heard over right intercostal space ABDOMEN: Some distention, nontender EXTREMITIES : Minimal LE swelling, dressing over LLE, violaceous patch RLE, mi nimal� LE tenderness, no other conspicuous deformities noted NEUROLOGIC : Coherent, no facial asymmetry, no other gross focality � Principal Diagnosis COPD exacerbation/bronchitis Hyperglycemia due to steroid use and poorly controlled diabetes mellitus type 2 Discharge Exam GENERAL:� obese M in NAD HEENT: NC/AT, Alopecia, pale palpebral conjunctivae NECK : Supple CHEST : Improved breath sounds, minimal wheezes noted HEART : RRR, +systolic murmur ABDOMEN: Some mild distention, nontender, + bowel sounds EXTREMITIES : Minimal LE swelling, dressing over LLE, violaceous patch RLE, minimal� LE tenderness, moves extremities NEUROLOGIC : Alert and oriented, answering questions appropriately, no facial asymmetry, moves extremities SKIN: Pallor, warm � Discharge Data Allergies Allergy/AdvReac Type Severity Reaction Status Date / Time No Known Allergies Allergy Verified 04/09/21 18:33 Consultations 04/09/21 20:57 ED Decision to Admit Stat 04/10/21 17:53 Consult Nephrology Routine Diabetes Follow up Diabetes Follow-up Needed for HgbA1c >9% Hospital Course (1) Asymptomatic hypertensive urgency: Secondary to steroid Rx for COPD exacerbation/bronchitis Titrate home BP meds BP well controlled now COPD exacerbation/bronchitis CXR w/o any acute findings procalcitonin 0.22 (negat.) Cont. doxycycline for complicated bronchitis cont. prednisone 20 mg daily Clinically patient is much improved, not requiring any oxygen, minimal cough, no shortness of breath Troponin elevation secondary to above in the setting of CKD troponin plataeued at 0.15 (also hx of chronically elev. trop) Pt has no chest pain Echo obtained 04/10 - LV is normal in size. Moderate concentric LVH. Apical wall motion abnormality may reflect pacemaker activation. There is borderline global hypokinesis of the left ventricle. EF 45 to 50%. Aortic valve leaflets are heavily calcified. Severe valvular aortic stenosis. There is moderate mitral annular calcification. Mild mitral regurg. Mild to moderate tricuspid regurg comparison to prior study of November 2019, overall LV systolic function has improved slightly. Hyperglycemic crisis secondary to steroid Rx History poorly controlled DM2 insulin requiring suboptimal control as above recent hemoglobin A1c of 9.21 February 2021 Basal insulin, ISS BG goal 110-140, carb count coverage Pharmacy glycemic control consulted Chronic wounds/calciphylaxis Follows w/ wound care clinic, improving Wound care nurse consult Re: Chronic leg wounds CKD, poss. PAM on CKD baseline Cr 2.5-3 per outpt records, however during previous admission Cr elevated Monitor creatinine response to gentle IV hydration Held home diuretic on admission Cr up at 3.9, now down to 3.1-3.4 Discussed w/ nephrology - pt is about his baseline, restarted torsemide at 20 BID while inpt Asymptomatic transaminitis LFTs trending down, hold statin for now liver ultrasound if with worsening Chronic systolic heart failure secondary to nonischemic cardiomyopathy, patient on the dry side Chronic LBBB Hx nonocclusive CAD/PVD as per records/hx CVA A. fib, paced rhythm on on Eliquis Valvular heart disease (severe aortic stenosis, mild MR/TR on recent TTE), surgery contemplated for aortic stenosis once chronic left leg wound healed. Chronic anemia, hemoglobin at baseline cont. to monitor Hgb History medication noncompliance as per records past tobacco abuse Total Time Total Time Spent Total Time Spent (In Minutes): 35 Discharge Plan Discharge Items Patient Disposition: Home - Self-Care Reason For Visit: HTN URG, HYPERGLYCEMIC CRISIS, TROP ELEV Discharge Diagnosis: COPD exacerbation/bronchitis Hyperglycemia due to steroid use and poorly controlled diabetes mellitus type 2 Activity: Per Instructions section Non-emergency contact: Primary Care Provider Call non-emergency contact if: you have any medication questions and your symptoms worsen Follow-up/Referrals: Mirlande Melton MD [Primary Care Provider] - (Date & Time 04/18/2021 11:20 AM Provider Stella Gaines MD Department Family Medicine [facility] ) Diet: Carb Consistent or DM2 and Heart Healthy Addtl Attending Provider Instructions: Follow-up with your primary care doctor, the appointment was scheduled for you for April 18. Continue taking guaifenesin/Mucinex, and use flutter valve and incentive spirometer. It is important that you follow-up with your healthcare providers to manage your diabetes as well as your wounds (wound clinic). Pending Studies at Discharge: No Stand-Alone Forms: My HomeStay, Smoking Cessation Medications and DC Order Prescriptions: New guaifenesin [Mucinex] 600 mg Tablet Extended Release 12hr 600 mg PO Q12 5 Days Qty: 10 RF: 0 Continued Lantus Solostar U-100 Insulin 100 unit/mL (3 mL) insulin pen 36 unit SUBCUT BID RF: 0 apixaban 2.5 mg tablet 2.5 mg PO BID RF: 0 aspirin 81 mg Tablet,Delayed Release (Dr/Ec) 81 mg PO QAM RF: 0 pantoprazole [Protonix] 40 mg Tablet,Delayed Release (Dr/Ec) 40 mg PO QAM RF: 0 cholecalciferol (vitamin D3) [Vitamin D3] 2,000 unit Capsule 2,000 unit PO Q OTHER DAY RF: 0 Breo Ellipta 100-25 mcg/dose Blister With Device 1 inh INHALATION QAM RF: 0 gabapentin 100 mg Capsule 100 mg PO TIDM RF: 0 ipratropium-albuterol 0.5 mg-3 mg(2.5 mg base)/3 mL Solution For Nebulization 3 ml INHALATION QID PRN (Reason: Shortness Of Breath Or Wheezing) RF: 0 albuterol sulfate [ProAir HFA] 90 mcg/actuation Hfa Aerosol Inhaler 2 puff INHALATION Q4H PRN (Reason: Shortness Of Breath Or Wheezing) RF: 0 fluticasone propionate [Flonase Allergy Relief] 50 mcg/actuation [place],Suspension 2 spray INTRANASAL DAILY PRN (Reason: Nasal Congestion) RF: 0 insulin lispro [Humalog KwikPen Insulin] 100 unit/mL insulin pen 25 unit subcut WM RF: 0 atorvastatin 80 mg tablet 80 mg PO QPM RF: 0 amlodipine 2.5 mg tablet 2.5 mg PO QAM RF: 0 torsemide 20 mg tablet 40 mg PO UD Qty: 90 RF: 2 baclofen 10 mg tablet 10 mg PO HS PRN (Reason: Cramps) RF: 0 metoprolol succinate [Toprol XL] 100 mg Tablet Extended Release 24 Hr 100 mg PO BID Qty: 60 RF: 1 digoxin 125 mcg (0.125 mg) tablet 125 mcg PO .DAILY AT NOON RF: 0 hydrocodone-acetaminophen 5-325 mg tablet 1 tab PO Q4H PRN (Reason: Pain) RF: 0 hydralazine 25 mg tablet 75 mg PO TID RF: 0 potassium chloride [Klor-Con M10] 10 mEq tablet,ER particles/crystals 10 meq PO QAM RF: 0 Discontinued prednisone 20 mg tablet 20 mg PO BID 5 Days Qty: 10 RF: 0 doxycycline hyclate 100 mg tablet 100 mg PO BID 7 Days Qty: 14 RF: 0 Discharge Orders: Discharge Order (Routine); Ordered 04/13/21 Ordered By: Angel Mane Admission Data Admit Date/Time: 04/09/21 21:45 Attending Provider: Angel Mane Admit Provider: Claudio Vazquez Primary Care Provider: Mirlande Melton Other Providers: Claudio Vazquez ; Moses Ramos
== END 2021-04-13 14:50 | disposition home or self-care (01) ==
LOC: ED 15:18 → EDINP 21:45 → INTOOBSV 21:45 → EDINP 23:30
DX: I27.20 Pulmonary hypertension, unspecified; I42.8 Other cardiomyopathies; Z79.899 Other long term (current) drug therapy; Z95.810 Presence of automatic (implantable) cardiac defibrillator; Z79.01 Long term (current) use of anticoagulants; J44.1 Chronic obstructive pulmonary disease with (acute) exacerbation; J45.909 Unspecified asthma, uncomplicated; I25.10 Atherosclerotic heart disease of native coronary artery without angina pectoris; Z20.822 Contact with and (suspected) exposure to COVID-19; N18.4 Chronic kidney disease, stage 4 (severe); I50.22 Chronic systolic (congestive) heart failure; Z79.82 Long term (current) use of aspirin; K21.9 Gastro-esophageal reflux disease without esophagitis; Z95.0 Presence of cardiac pacemaker; E83.59 Other disorders of calcium metabolism; Z86.73 Personal history of transient ischemic attack (TIA), and cerebral infarction without residual deficits; E78.5 Hyperlipidemia, unspecified; I13.0 Hypertensive heart and chronic kidney disease with heart failure and stage 1 through stage 4 chronic kidney disease, or unspecified chronic kidney disease; G47.30 Sleep apnea, unspecified; T38.0X5A Adverse effect of glucocorticoids and synthetic analogues, initial encounter; E11.40 Type 2 diabetes mellitus with diabetic neuropathy, unspecified; I48.0 Paroxysmal atrial fibrillation; Z86.16 Personal history of COVID-19; I16.0 Hypertensive urgency; I35.0 Nonrheumatic aortic (valve) stenosis; Z79.4 Long term (current) use of insulin; E11.65 Type 2 diabetes mellitus with hyperglycemia

== ENCOUNTER 2021-05-26 10:20 | Inpatient (IN) ==
[2021-05-26] MEDS ORDERED: ACETAMINOPHEN 325 MG TAB PO STA (10:52)
[2021-05-26] MEDS ORDERED: SODIUM CHLORIDE 0.9% 500 ML IV SCH (11:00)
--- NOTE | 2021-05-26 11:02 | Emergency Department Note ---
Impression & Plan AMS (altered mental status), Acute hyperglycemia, Elevated troponin I level ED Provider Note NAME: NIRANJAN VILLALTA AGE: 66 SEX: M : 1955 ARRIVES VIA: Ambulance INFORMANT: Patient, the patient's [id number] ED PROVIDER(S): Javier Zepeda DO CHIEF COMPLAINT: Altered mental status the patient is a 66-year-old male who has a history of diabetes as well as CVA in the past who presented to the emergency department for altered mental status. HPI: The patient was visited by his [id number] today. She is very familiar with the patient and noted that he was more confused than usual. He did not recognize family members. He has been complaining of a slight headache which she describes as an occipital headache with some radiation into his neck. He said no fever. He denies having any cough. He denies having any recent trauma. The patient has been compliant with his usual outpatient medications. The patient arrived via ambulance. He was noted to have elevated blood pressure. The patient is also being treated for calciphylaxis. This is noted in his lower extremities. He has a PICC line in place for this. The patient self denies having any chest pain or trouble with lower extremity swelling. He does co mplain of some shortness of breath. ROS: See above HPI for pertinent positives & negatives. A total of 10 systems reviewed and were otherwise negative. PAST MEDICAL HISTORY: See Below PAST SURGICAL HISTORY: See Below FAMILY HISTORY: See Below SOCIAL HISTORY: See Below HOME MEDICATIONS: See Below ALLERGIES: See Below VITALS: See Below PHYSICAL EXAMINATION: GENERAL: The patient is awake and alert. He is answering questions appropriately. He follows commands slowly but appropriately. EYES: The conjunctivae are clear. The pupils are round and reactive. EARS, NOSE, MOUTH AND THROAT: The nose is without any evidence of any deformity. NECK: The neck is nontender and supple. RESPIRATORY: Normal respiratory effort is noted there is no evidence of wheezing rhonchi or rales CARDIOVASCULAR: Irregular heart sounds were noted auscultation. Systolic murmur was suggested. GASTROINTESTINAL: The abdomen is soft. Abdomen is nontender. MUSCULOSKELETAL/EXTREMITIES: There is no evidence of gross deformity full range of motion is noted in the hips and shoulders. SKIN: Skin is warm and dry. There is no erythema or significant pedal edema. NEUROLOGIC: Patient is awake and oriented to person place and situation. He is somewhat confused about the year. He does recognize his [id number]. There is no facial droop noted. The patient strength is symmetric. MEDICAL DECISION MAKING: The patient is a 66-year-old male with a history of diabetes as well as stroke who presented to the emergency department for an evaluation of altered mental status. The patient presented by ambulance. His family members presented to the ER with him. The patient was able to answer questions but did appear somewhat confused. I have taken care of this patient in the past and his mental status does appear to be somewhat different than his baseline. I discussed patient's laboratory and radiographic studies with him. Because of his mental status I also discussed his [facility] They have agreed to evaluate the patient in the emergency department for further management and disposition. The patient was also treated with IV fluids. Triage Nursing notes reviewed. Prior medical records reviewed Vital Signs: reviewed and remarkable for no significant abnormalities Differential diagnosis: Infection, hypoglycemia, electrolyte abnormalities, overdose, toxicologic, cardiac sources, intracerebral event, neurologic, trauma, as well as other pathologies. ER treatment provided: See below Diagnostics interpreted by me: ECG: EKG was obtained in the emergency department. My interpretation is ventricular paced rhythm at 87 bpm. Some burns paiute beats were noted. This was compared to a tracing from April 092020. No changes were noted. Cardiac Monitoring: An order was placed for continuous cardiac monitoring. The monitor shows a rate of 60 bpm with ventricular paced rhythm. Laboratory studies: As stated above and show below. Imaging studies: See below Consultation(s): I discussed this case with Janny Middleton who is [facility]. Past Med/Surg History Medical History Aortic stenosis Severe aortic stenosis vs pseudo aortic stenosis due to low output per cardio note from 12/2019 ECHO Asthma Atrial fibrillation on warfarin CAD (coronary artery disease) "nonobstructive" Chronic anemia Chronic kidney disease Stage 4, under surveillance by Dr. Mcdermott (no dialysis at this time) Chronic systolic (congestive) heart failure COPD (chronic obstructive pulmonary disease) Diabetic neuropathy DM type 2 (diabetes mellitus, type 2) IDDM Dyslipidemia Gall stones GERD (gastroesophageal reflux disease) History of COVID-19 Dx 08/05/20(hospitalized at [facility]) > symptoms at time of cough, SOB, generalized weakness, n/v/d, loss of taste/smell > "resolved" History of multiple pulmonary nodules Hypertension LBBB (left bundle branch block) Nonischemic cardiomyopathy S/p BIV AICD in place; follows with Dr. Graves Presence of combination internal cardiac defibrillator (ICD) and pacemaker Implanted 5+ years ago, [employer], last check 07/2020 Pulmonary HTN PVD (peripheral vascular disease) Sleep apnea + nocturnal hypoxia > BIPAP + 2L O2 HS Stroke 11/2019 > residual speech difficulty/short term memory issues Surgical History H/O cardiac catheterization Non nonobstructive CAD on 2016 cardiac cath H/O total adrenalectomy Left (25 years ago) History of colonoscopy History of esophagogastroduodenoscopy (EGD) S/P debridement (01/08/21) Left Lower Extremity Medial and Lateral excisional Debridement ( greater than 20 sq. 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 Feels Safe at Home: Yes Assistive Devices: CPAP Allergies Allergies Allergy/AdvReac Type Severity Reaction Status Date / Time No Known Allergies Allergy Verified 04/24/21 11:06 Home Meds Home Medications Medication Instructions Recorded Confirmed aspirin 81 mg tablet,delayed 81 mg PO QAM 02/05/18 05/26/21 release cholecalciferol (vitamin D3) 50 2,000 unit PO Q OTHER DAY 02/05/18 05/26/21 mcg (2,000 unit) capsule (Vitamin D3) pantoprazole 40 mg tablet,delayed 40 mg PO QAM 02/05/18 05/26/21 release (Protonix) gabapentin 100 mg capsule 100 mg PO TIDM 05/14/18 05/26/21 albuterol sulfate 90 mcg/actuation 2 puff INHALATION Q4H PRN 08/01/18 05/26/21 aerosol inhaler (ProAir HFA) fluticasone propionate 50 2 spray INTRANASAL DAILY PRN 08/01/18 05/26/21 mcg/actuation nasal spray,suspension (Flonase Allergy Relief) ipratropium 0.5 mg-albuterol 3 mg 3 ml INHALATION QID PRN 08/01/18 05/26/21 (2.5 mg base)/3 mL nebulization soln fluticasone furoate 100 1 inh INHALATION QAM 03/02/20 05/26/21 mcg-vilanterol 25 mcg/dose inhalation powder (Breo Ellipta) baclofen 10 mg tablet 10 mg PO HS PRN 08/05/20 05/26/21 amlodipine 2.5 mg tablet 2.5 mg PO QAM 09/17/20 05/26/21 atorvastatin 80 mg tablet 80 mg PO QPM 09/17/20 05/26/21 insulin glargine 100 unit/mL (3 36 unit SUBCUT BID ml 01/17/21 05/26/21 mL) subcutaneous pen (Lantus Solostar U-100 Insulin) insulin lispro 100 unit/mL 25 unit SUBCUT WM 01/17/21 05/26/21 subcutaneous pen (Humalog KwikPen (U-100) Insulin) apixaban 2.5 mg tablet 2.5 mg PO BID 03/01/21 05/26/21 hydralazine 25 mg tablet 75 mg PO TID 04/07/21 05/26/21 hydrocodone 5 mg-acetaminophen 325 1 tab PO Q4H PRN 04/07/21 05/26/21 mg tablet potassium chloride 10 mEq 10 meq PO QAM 04/07/21 05/26/21 tablet,extended release(part/cryst) (Klor-Con M) digoxin 125 mcg (0.125 mg) tablet 125 mcg PO DAILY 04/24/21 05/26/21 isosorbide dinitrate 10 mg tablet 10 mg PO TID 04/24/21 05/26/21 torsemide 20 mg tablet 60 mg PO UD 04/24/21 05/26/21 Previous Rx's Medication Instructions Recorded metoprolol succinate 100 mg 100 mg PO BID #60 tab 08/14/20 tablet,extended release 24 hr (Toprol XL) Results & Data (ED) Vital Signs Vital Signs - 24 hr 05/26/21 10:40 05/26/21 11:14 05/26/21 13:00 Temperature 36.6 C Temperature Source Oral Pulse Rate 86 77 Pulse Rate [Apical] 77 60 Respiratory Rate 20 13 12 Blood Pressure 153/98 H Blood Pressure [Left Arm] 135/96 123/68 Blood Pressure Mean 116 Blood Pressure Mean [Left Arm] 109 86 Blood Pressure Position Sitting Pulse Oximetry 97 100 Oxygen Delivery Method Room Air Room Air Sepsis Recent Fever Within 48 Hours No Sepsis New/Unexplained Change in Mental Status No Sepsis Action Taken by Nursing No Action Required Home Medications Current Medication List: was personally reviewed by me Laboratory Data Attestation: I reviewed the patient's lab results. Result diagrams: 05/26/21 11:06 05/26/21 11:06 Lab Results 05/26/21 05/26/21 05/26/21 Range/Units 11:06 11:06 11:06 WBC 7.84 (4.8-10.8) K/uL RBC 4.14 L (4.7-6.1) M/uL Hgb 11.5 L (14.0-18.0) g/dL Hct 35.6 L (42-52) % MCV 86.0 (80-100) fL MCH 27.8 (25-34) pg MCHC 32.3 (32-36) g/dL RDW Std Deviation 45.7 (36.4-46.3) fL RDW Coeff of Joey 14.7 H (11.5-14.5) % Plt Count 114 L (130-400) K/uL MPV 10.0 (7.4-10.4) fL Immature Gran % (Auto) 0.5 % Neut % (Auto) 83.2 % Lymph % (Auto) 7.0 % Chaves % (Auto) 8.2 % Eos % (Auto) 1.0 % Baso % (Auto) 0.1 % Neut # (Auto) 6.52 H (1.4-6.5) K/uL Lymph # (Auto) 0.55 L (1.2-3.4) K/uL Chaves # (Auto) 0.64 H (0.11-0.59) K/uL Eos # (Auto) 0.08 (0-0.5) K/uL Baso # (Auto) 0.01 (0-0.2) K/uL Immature Gran # (Auto) 0.04 H (0.00-0.02) K/uL PT 10.9 (9.0-12.0) Seconds INR 1.1 (0.9-1.1) APTT 28.7 (21.0-31.0) Seconds PTT Ratio 1.1 Sodium 138 (136-145) mmol/L Potassium 3.7 (3.5-5.1) mmol/L Chloride 101 (98-107) mmol/L Carbon Dioxide 26 (21-32) mmol/L Anion Gap 11 (3-11) BUN 58 H (6-23) mg/dl Creatinine 3.50 H (0.6-1.4) mg/dl Est Cr Clr Drug Dosing 24.7 ml/min Est GFR ( Amer) 19.8 ml/min Est GFR (Non-Af Amer) 17.1 ml/min BUN/Creatinine Ratio 16.6 (10-20) Glucose 304 H* (70-99(Fasting)) mg/dl Calcium 9.3 (8.5-10.1) mg/dl Magnesium 2.1 (1.7-2.4) mg/dl Total Bilirubin 0.7 (0.2-1.0) mg/dl AST 13 (13-39) U/L ALT 12 (7-52) U/L Alkaline Phosphatase 91 (34-104) U/L Total Creatine Kinase 220 (30-223) U/L Troponin I 0.16 H* (0-0.04) ng/ml Total Protein 6.8 (6.0-8.3) gm/dl Albumin 3.8 (3.4-5.0) gm/dl Globulin 3.0 (2.5-4.0) gm/dl Albumin/Globulin Ratio 1.3 (0.9-2) TSH (0.300-4.500) uIu/ml Influ A Molecular Assay (Negative) Influ B Molecular Assay (Negative) SARS-CoV-2, RNA, NAAT (NEGATIVE) 02/10/0905/26/21 05/26/21 Range/Units 11:06 11:10 11:10 WBC (4.8-10.8) K/uL RBC (4.7-6.1) M/uL Hgb (14.0-18.0) g/dL Hct (42-52) % MCV (80-100) fL MCH (25-34) pg MCHC (32-36) g/dL RDW Std Deviation (36.4-46.3) fL RDW Coeff of Joey (11.5-14.5) % Plt Count (130-400) K/uL MPV (7.4-10.4) fL Immature Gran % (Auto) % Neut % (Auto) % Lymph % (Auto) % Chaves % (Auto) % Eos % (Auto) % Baso % (Auto) % Neut # (Auto) (1.4-6.5) K/uL Lymph # (Auto) (1.2-3.4) K/uL Chaves # (Auto) (0.11-0.59) K/uL Eos # (Auto) (0-0.5) K/uL Baso # (Auto) (0-0.2) K/uL Immature Gran # (Auto) (0.00-0.02) K/uL PT (9.0-12.0) Seconds INR (0.9-1.1) APTT (21.0-31.0) Seconds PTT Ratio Sodium (136-145) mmol/L Potassium (3.5-5.1) mmol/L Chloride (98-107) mmol/L Carbon Dioxide (21-32) mmol/L Anion Gap (3-11) BUN (6-23) mg/dl Creatinine (0.6-1.4) mg/dl Est Cr Clr Drug Dosing ml/min Est GFR ( Amer) ml/min Est GFR (Non-Af Amer) ml/min BUN/Creatinine Ratio (10-20) Glucose (70-99(Fasting)) mg/dl Calcium (8.5-10.1) mg/dl Magnesium (1.7-2.4) mg/dl Total Bilirubin (0.2-1.0) mg/dl AST (13-39) U/L ALT (7-52) U/L Alkaline Phosphatase (34-104) U/L Total Creatine Kinase (30-223) U/L Troponin I (0-0.04) ng/ml Total Protein (6.0-8.3) gm/dl Albumin (3.4-5.0) gm/dl Globulin (2.5-4.0) gm/dl Albumin/Globulin Ratio (0.9-2) TSH 4.444 (0.300-4.500) uIu/ml Influ A Molecular Assay Negative (Negative) Influ B Molecular Assay Negative (Negative) SARS-CoV-2, RNA, NAAT NEGATIVE (NEGATIVE) Administered Medications Discontinued Medications Acetaminophen (Acetaminophen 325 Mg Tab) 650 mg PO NOW STA Stop: 05/26/21 10:53 Last Admin: 05/26/21 10:59 Dose: 650 mg Documented by: [id number] Sodium Chloride (Nss) 500 mls @ 999 mls/hr IV .Q31M ALYSIA Stop: 05/26/21 11:30 Last Infusion: 05/26/21 12:15 Dose: 0 mls/hr Documented by: [id number] Admin: 05/26/21 11:27 Dose: 999 mls/hr Documented by: [id number] Imaging Data Radiologist's Impression: Chest X-Ray 05/26/21 10:52 XR chest 1V portable CLINICAL HISTORY: weakness. Evaluate cardiopulmonary status COMPARISON STUDY: 04/09/2021 TECHNIQUE: 1 view of the chest FINDINGS: Single frontal view of the chest demonstrates the heart size to again be enlarged status post pacer placement. The lungs are clear of alveolar opacities. There is no evidence for pleural effusion. There is no evidence for vascular congestion. There is no acute osseous pathology. IMPRESSION: No acute cardiopulmonary disease. ACT 112: Negative or not required by law. Electronically signed by: Cassius Barraza M.D. 05/26/2021 11:[address] 05/26/21 10:52 CT head/brain wo con CLINICAL HISTORY: ams COMPARISON STUDY: 12/31/2020 CT DOSE: 884.08 mGy.cm TECHNIQUE: Standard CT of the Brain was performed without IV contrast. A dose lowering technique was utilized adhering to the principles of ALARA. FINDINGS: Extraaxial space: There is no evidence for subdural hematoma. There are no extra-axial fluid collections. Ventricles and cisterns: Line dilatation There is no evidence for midline shift or mass effect. Parenchyma: There is no subarachnoid or intraparenchymal hemorrhage. There is no evidence for an acute infarct or cerebral edema. Encephalomalacia is again seen in the left frontal parietal lobe characteristic of an old left MCA infarct. There is mild cerebral cortical atrophy and decreased attenuation in the periventricular white matter representing remote small vessel disease. There are no gross mass lesions. Osseous structures: There is no evidence for an acute fracture. The visualized paranasal sinuses are clear. The mastoid air cells are clear bilaterally. Soft tissues: There is no evidence for focal soft tissue swelling. IMPRESSION: No acute intracerebral pathology. Cerebral cortical atrophy and remote small vessel disease. Old left MCA infarct. ACT 112: Negative or not required by law. Electronically signed by: Cassius Barraza M.D. 05/26/2021 11:25 AM Discharge Plan Visit Data Chief Complaint: Headache Stated Complaint: CONFUSION, WEAKNESS, HEADACHE, DIZZY ED Provider: Javier Zepeda Discharge Problem: AMS (altered mental status), Acute hyperglycemia, Elevated troponin I level Patient Disposition: Being Evaluated by Hospitalist Forms Stand Alone Forms: My [facility] Prescriptions Prescriptions: No Action Lantus Solostar U-100 Insulin 100 unit/mL (3 mL) insulin pen 36 unit SUBCUT BID RF: 0 apixaban 2.5 mg tablet 2.5 mg PO BID RF: 0 aspirin 81 mg Tablet,Delayed Release (Dr/Ec) 81 mg PO QAM RF: 0 pantoprazole [Protonix] 40 mg Tablet,Delayed Release (Dr/Ec) 40 mg PO QAM RF: 0 cholecalciferol (vitamin D3) [Vitamin D3] 2,000 unit Capsule 2,000 unit PO Q OTHER DAY RF: 0 Breo Ellipta 100-25 mcg/dose Blister With Device 1 inh INHALATION QAM RF: 0 gabapentin 100 mg Capsule 100 mg PO TIDM RF: 0 ipratropium-albuterol 0.5 mg-3 mg(2.5 mg base)/3 mL Solution For Nebulization 3 ml INHALATION QID PRN (Reason: Shortness Of Breath Or Wheezing) RF: 0 albuterol sulfate [ProAir HFA] 90 mcg/actuation Hfa Aerosol Inhaler 2 puff INHALATION Q4H PRN (Reason: Shortness Of Breath Or Wheezing) RF: 0 fluticasone propionate [Flonase Allergy Relief] 50 mcg/actuation [place],Suspension 2 spray INTRANASAL DAILY PRN (Reason: Nasal Congestion) RF: 0 insulin lispro [Humalog KwikPen Insulin] 100 unit/mL insulin pen 25 unit subcut WM RF: 0 atorvastatin 80 mg tablet 80 mg PO QPM RF: 0 amlodipine 2.5 mg tablet 2.5 mg PO QAM RF: 0 digoxin 125 mcg (0.125 mg) tablet 125 mcg PO DAILY RF: 0 torsemide 20 mg tablet 60 mg PO UD RF: 0 isosorbide dinitrate 10 mg tablet 10 mg PO TID RF: 0 baclofen 10 mg tablet 10 mg PO HS PRN (Reason: Cramps) RF: 0 metoprolol succinate [Toprol XL] 100 mg Tablet Extended Release 24 Hr 100 mg PO BID Qty: 60 RF: 1 hydrocodone-acetaminophen 5-325 mg tablet 1 tab PO Q4H PRN (Reason: Pain) RF: 0 hydralazine 25 mg tablet 75 mg PO TID RF: 0 potassium chloride [Klor-Con M10] 10 mEq tablet,ER particles/crystals 10 meq PO QAM RF: 0 Referrals Referrals: Mirlande Melton MD [Primary Care Provider] -
--- NOTE | 2021-05-26 11:18 | Electrocardiogram Report ---
Test Reason : Blood Pressure : / mmHG Vent. Rate : 087 BPM Atrial Rate : 091 BPM P-R Int : 000 ms QRS Dur : 172 ms QT Int : 442 ms P-R-T Axes : 000 173 -13 degrees QTc Int : 531 ms Ventricular-paced rhythm Abnormal ECG When compared with ECG of 09-APR-2021 18:09, Vent. rate has increased BY 21 BPM Confirmed by Shukri Roblero ([id number]) on 05/26/2021 11:18:01 AM Referred By: Confirmed By:Shukri Roblero
[2021-05-26 11:24] LABS: Basophils # (auto) 0.01 K/uL (0-0.2); Basophils % (auto) 0.1 %; Eosinophils # (auto) 0.08 K/uL (0-0.5); Hematocrit (blood only) 35.6 % (42-52); Hemoglobin 11.5 g/dL (14.0-18.0); Immature Granulocytes # (auto) 0.04 K/uL (0.00-0.02); Immature Granulocytes % (auto) 0.5 %; Lymphocytes # (auto) 0.55 K/uL (1.2-3.4); Mean Corpuscular Hemoglobin 27.8 pg (25-34); Mean Corpuscular Hgb Conc 32.3 g/dL (32-36); Monocytes # (auto) 0.64 K/uL (0.11-0.59); Monocytes % (auto) 8.2 %; Neutrophils # (auto) 6.52 K/uL (1.4-6.5); Neutrophils % (auto) 83.2 %; Platelet Count 114 K/uL (130-400); RDW Coefficient of Variation 14.7 % (11.5-14.5); RDW Standard Deviation 45.7 fL (36.4-46.3); Red Blood Count 4.14 M/uL (4.7-6.1); White Blood Count 7.84 K/uL (4.8-10.8)
--- NOTE | 2021-05-26 11:26 | CT Scan Report ---
CT head/brain wo con CLINICAL HISTORY: ams COMPARISON STUDY: 12/31/2020 CT DOSE: 884.08 mGy.cm TECHNIQUE: Standard CT of the Brain was performed without IV contrast. A dose lowering technique was utilized adhering to the principles of ALARA. FINDINGS: Extraaxial space: There is no evidence for subdural hematoma. There are no extra-axial fluid collecti ons. Ventricles and cisterns: Line dilatation There is no evidence for midline shift or mass effect. Parenchyma: There is no subarachnoid or intraparenchymal hemorrhage. There is no evidence for an acu te infarct or cerebral edema. Encephalomalacia is again seen in the left frontal parietal lobe charac teristic of an old left MCA infarct. There is mild cerebral cortical atrophy and decreased attenuatio n in the periventricular white matter representing remote small vessel disease. There are no gross ma ss lesions. Osseous structures: There is no evidence for an acute fracture. The visualized paranasal sinuses are clear. The mastoid air cells are clear bilaterally. Soft tissues: There is no evidence for focal soft tissue swelling. IMPRESSION: No acute intracerebral pathology. Cerebral cortical atrophy and remote small vessel disea se. Old left MCA infarct. ACT 112: Negative or not required by law. Electronically signed by: Cassius Barraza M.D. 05/26/2021 11:25 AM
--- NOTE | 2021-05-26 11:33 | XRay Report ---
XR chest 1V portable CLINICAL HISTORY: weakness. Evaluate cardiopulmonary status COMPARISON STUDY: 04/09/2021 TECHNIQUE: 1 view of the chest FINDINGS: Single frontal view of the chest demonstrates the heart size to again be enlarged status post pacer p lacement. The lungs are clear of alveolar opacities. There is no evidence for pleural effusion. There is no evidence for vascular congestion. There is no acute osseous pathology. IMPRESSION: No acute cardiopulmonary disease. ACT 112: Negative or not required by law. Electronically signed by: Cassius Barraza M.D. 05/26/2021 11:32 AM
[2021-05-26 11:35] LABS: INR 1.1 (0.9-1.1); Partial Thromboplastin Ratio 1.1; Partial Thromboplastin Time 28.7 Seconds (21.0-31.0); Prothrombin Time 10.9 Seconds (9.0-12.0)
[2021-05-26 11:39] LABS: Influenza A virus by PCR Negative (Negative); Influenza B virus by PCR Negative (Negative)
[2021-05-26 11:49] LABS: Albumin Globulin Ratio 1.3 (0.9-2); Albumin Level 3.8 gm/dl (3.4-5.0); BUN Creatinine Ratio 16.6 (10-20); Bilirubin,Total 0.7 mg/dl (0.2-1.0); Calcium 9.3 mg/dl (8.5-10.1); Creatinine Clr Calc Pharmacy 24.7 ml/min; Est GFR (African American) 19.8 ml/min; Est GFR (Non-African American) 17.1 ml/min; Magnesium 2.1 mg/dl (1.7-2.4); Potassium 3.7 mmol/L (3.5-5.1); Total Protein 6.8 gm/dl (6.0-8.3)
[2021-05-26 12:03] LABS: Troponin I 0.16 ng/ml (0-0.04)
--- NOTE | 2021-05-26 13:00 | History & Physical Report ---
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 Lethargy, left leaning and clonic twitching of BUE noted to be new since last night at 0200 Afebrile, no leukocytosis, kidney function at baseline, troponin at baseline, covid and flu PCR negative. CT head and CXR without acute changes UA and utox pending TIA evaluation, h/o stroke 1.5 years prior - MRI brain wo con (has a pacemaker), echo with bubble study, PT/OT/speech pending ? Side effect of sodium thiosulfate infusions started 5 weeks prior Fall and aspiration precautions ordered (2) Acute hyperglycemia: (3) Poorly controlled diabetes mellitus: Plan: A1c of 10.1 in Mar 2021 Did not take insulin this morning - BSG over 300 Basal/bolus insulin per protocol while in-patient Glycemic consult placed BSG AC HS (4) CAD (coronary artery disease): Plan: Stable. Continue aspirin, statin, Toprol, Imdur (5) COPD (chronic obstructive pulmonary disease): Plan: Stable. Continue home inhalers (6) Atrial fibrillation: Plan: Controlled. Continue digoxin, Toprol, Eliquis for anticoagulation (7) Peripheral arterial disease: Plan: Continue aspirin, statin (8) Chronic systolic (congestive) heart failure: Plan: Appears compensated. 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 Undergoing tx at [facility] for past 5 weeks with sodium thiosulfate infusions M-F Open wound with eschar on RLE. Two wounds recently closed on LLE. Wound care nurse consulted (10) CKD (chronic kidney disease) stage 4, GFR 15-29 ml/min: Plan: Baseline creatinine ~3.5 Follows with [facility] nephrology Avoid nephrotoxic agents (11) Elevated troponin I level: Plan: Chronically elevated in setting of CKD IV, at baseline around 0.100 (12) ARPIT (obstructive sleep apnea): Plan: May use bipap from home with 2L O2 (13) Thrombocytopenia: Plan: Plt at baseline. Monitor with daily CBC DVT Ppx: Eliquis Code status: FULL PCP: Milady Dispo: Observation med tele Patient seen in collaboration with Dr. Woody. Please see addendum. 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 Last seen well around 0200 at bedtime last evening. This morning, patient was lethargic and difficult to wake up. noticed she was leaning towards left side. Brooks lightheaded and "wobbly" but no focal weakness noted. Notes headache in back of head prior to arrival that is still present. Family notes new tremor in BUE noted at rest since yesterday. Did take baclofen and a dose of Pryor yesterday for pain. States he uses these medications sparingly, usually 2-3x/week each. Does have history of stroke 1.5 years prior but only residual deficit is occasional difficulty with word finding. No fever, chills, CP, SOB, N/V, abdominal pain, dysuria, diarrhea or constipation. Allergies Allergy/AdvReac Type Severity Reaction Status Date / Time No Known Allergies Allergy Verified 04/24/21 11:06 Home Medications Medication Instructions Recorded Confirmed Type aspirin 81 mg tablet,delayed 81 mg PO QAM 02/05/18 05/26/21 History release pantoprazole 40 mg tablet,delayed 40 mg PO QAM 02/05/18 05/26/21 History release (Protonix) gabapentin 100 mg capsule 100 mg PO TIDM 05/14/18 05/26/21 History albuterol sulfate 90 mcg/actuation 2 puff INHALATION Q4H PRN 08/01/18 05/26/21 History aerosol inhaler (ProAir HFA) fluticasone propionate 50 2 spray INTRANASAL DAILY PRN 08/01/18 05/26/21 History mcg/actuation nasal spray,suspension (Flonase Allergy Relief) ipratropium 0.5 mg-albuterol 3 mg 3 ml INHALATION QID PRN 08/01/18 05/26/21 History (2.5 mg base)/3 mL nebulization soln fluticasone furoate 100 1 inh INHALATION QAM 03/02/20 05/26/21 History mcg-vilanterol 25 mcg/dose inhalation powder (Breo Ellipta) baclofen 10 mg tablet 10 mg PO HS PRN 08/05/20 05/26/21 History metoprolol succinate 100 mg 100 mg PO BID #60 tab 08/14/20 05/26/21 Rx tablet,extended release 24 hr (Toprol XL) amlodipine 2.5 mg tablet 2.5 mg PO QAM 09/17/20 05/26/21 History atorvastatin 80 mg tablet 80 mg PO QPM 09/17/20 05/26/21 History insulin glargine 100 unit/mL (3 36 unit SUBCUT BID ml 01/17/21 05/26/21 History mL) subcutaneous pen (Lantus Solostar U-100 Insulin) insulin lispro 100 unit/mL 25 unit SUBCUT WM 01/17/21 05/26/21 History subcutaneous pen (Humalog KwikPen (U-100) Insulin) apixaban 2.5 mg tablet 2.5 mg PO BID 03/01/21 05/26/21 History hydralazine 25 mg tablet 75 mg PO TID 04/07/21 05/26/21 History hydrocodone 5 mg-acetaminophen 325 1 tab PO Q4H PRN 04/07/21 05/26/21 History mg tablet potassium chloride 10 mEq 10 meq PO QAM 04/07/21 05/26/21 History tablet,extended release(part/cryst) (Klor-Con M) digoxin 125 mcg (0.125 mg) tablet 125 mcg PO DAILY 04/24/21 05/26/21 History isosorbide dinitrate 10 mg tablet 10 mg PO TID 04/24/21 05/26/21 History torsemide 20 mg tablet 60 mg PO UD 04/24/21 05/26/21 History sodium chloride 0.9 % (flush) 10 ml IV DAILY 05/26/21 05/26/21 History (Normal Saline Flush) Past Med/Surg History Medical History (Updated 05/26/21 @ 14:39 by Janny Middleton PA-C) Aortic stenosis Severe aortic stenosis vs pseudo aortic stenosis due to low output per cardio note from 12/2019 ECHO Asthma Atrial fibrillation on warfarin CAD (coronary artery disease) "nonobstructive" Chronic anemia Chronic kidney disease Stage 4, under surveillance by Dr. Mcdermott (no dialysis at this time) Chronic systolic (congestive) heart failure Chronic systolic (congestive) heart failure COPD (chronic obstructive pulmonary disease) COPD (chronic obstructive pulmonary disease) Diabetic neuropathy DM type 2 (diabetes mellitus, type 2) IDDM Dyslipidemia Gall stones GERD (gastroesophageal reflux disease) History of COVID-19 Dx 08/05/20(hospitalized at [place]) > symptoms at time of cough, SOB, generalized weakness, n/v/d, loss of taste/smell > "resolved" History of multiple pulmonary nodules Hypertension LBBB (left bundle branch block) Nonischemic cardiomyopathy S/p BIV AICD in place; follows with Dr. Graves Presence of combination internal cardiac defibrillator (ICD) and pacemaker Implanted 5+ years ago, [employer], last check 07/2020 Pulmonary HTN PVD (peripheral vascular disease) Sleep apnea + nocturnal hypoxia > BIPAP + 2L O2 HS Stroke 11/2019 > residual speech difficulty/short term memory issues Surgical History H/O cardiac catheterization Non nonobstructive CAD on 2017 cardiac cath H/O total adrenalectomy Left (25 years ago) History of colonoscopy History of esophagogastroduodenoscopy (EGD) S/P debridement (01/08/21) Left Lower Extremity Medial and Lateral excisional Debridement ( greater than 20 sq. cm and Biopsy( both wounds)) - Ignacio Chisholm, DO 01/08/21 Family History Sister Diabetes Brother Diabetes Other Hypertension Lung cancer Social History (Updated 05/26/21 @ 13:50 by Janny Middleton PA-C) Smoking Status: Heavy tobacco smoker Tobacco Type: Smokeless Tobacco (Dip or Chew) Second Hand Exposure: No; Do You Dip or Chew Tobacco: Yes; Tobacco Cessation Education Requested by Patient: No Hx Alcohol Use: Yes Alcohol type: beer and hard liquor Hx Substance Use: No Preferred Language: Japanese Communication Ability: Effective Visual Impairment: Limited Chief Estimator Required: No Beliefs That Will Affect Care: None marital status: Current Living Situation: Spouse current occupational status: retired 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 Physical Exam Physical Exam: Please see Dr. Woody's addendum for physical exam. Results & Data Results & Data ([facility]) Vital Signs (Past 12 Hours) Vital Signs Temp Pulse Pulse Resp BP BP Pulse Ox 05/26/21 11:14 77 77 13 135/96 100 05/26/21 10:40 36.6 C 86 20 153/98 H 97 Laboratory Results Short CBC 05/26/21 Range/Units 11:06 WBC 7.84 (4.8-10.8) K/uL Hgb 11.5 L (14.0-18.0) g/dL Hct 35.6 L (42-52) % Plt Count 114 L (130-400) K/uL BMP 05/26/21 11:06 Sodium 138 Potassium 3.7 Chloride 101 Carbon Dioxide 26 BUN 58 H Creatinine 3.50 H Glucose 304 H* Calcium 9.3 Cardiac Enzymes 05/26/21 Range/Units 11:06 Total Creatine Kinase 220 (30-223) U/L Troponin I 0.16 H* (0-0.04) ng/ml Liver Function 05/26/21 Range/Units 11:06 Total Bilirubin 0.7 (0.2-1.0) mg/dl AST 13 (13-39) U/L ALT 12 (7-52) U/L Alkaline Phosphatase 91 (34-104) U/L Albumin 3.8 (3.4-5.0) gm/dl Diagnostic Findings Chest X-Ray 05/26/21 10:52 XR chest 1V portable CLINICAL HISTORY: weakness. Evaluate cardiopulmonary status COMPARISON STUDY: 04/09/2021 TECHNIQUE: 1 view of the chest FINDINGS: Single frontal view of the chest demonstrates the heart size to again be enlarged status post pacer placement. The lungs are clear of alveolar opacities. There is no evidence for pleural effusion. There is no evidence for vascular congestion. There is no acute osseous pathology. IMPRESSION: No acute cardiopulmonary disease. ACT 112: Negative or not required by law. Electronically signed by: Cassius Barraza M.D. 05/26/2021 11:[address] 05/26/21 10:52 CT head/brain wo con CLINICAL HISTORY: ams COMPARISON STUDY: 12/31/2020 CT DOSE: 884.08 mGy.cm TECHNIQUE: Standard CT of the Brain was performed without IV contrast. A dose lowering technique was utilized adhering to the principles of ALARA. FINDINGS: Extraaxial space: There is no evidence for subdural hematoma. There are no extra-axial fluid collections. Ventricles and cisterns: Line dilatation There is no evidence for midline shift or mass effect. Parenchyma: There is no subarachnoid or intraparenchymal hemorrhage. There is no evidence for an acute infarct or cerebral edema. Encephalomalacia is again seen in the left frontal parietal lobe characteristic of an old left MCA infarct. There is mild cerebral cortical atrophy and decreased attenuation in the periventricular white matter representing remote small vessel disease. There are no gross mass lesions. Osseous structures: There is no evidence for an acute fracture. The visualized paranasal sinuses are clear. The mastoid air cells are clear bilaterally. Soft tissues: There is no evidence for focal soft tissue swelling. IMPRESSION: No acute intracerebral pathology. Cerebral cortical atrophy and remote small vessel disease. Old left MCA infarct. ACT 112: Negative or not required by law. Electronically signed by: Cassius Barraza M.D. 05/26/2021 11:25 AM Supervising Physician Co-Signing Physician Notes 66-year-old male with PMH of HFrEF 2/2 ischemic CM [2020 TTE, EF of 30 to 34%] s/p ICD, chronic LBBB, CAD, PVD, CVA, A. fib on Eliquis, valvular heart disease [severe , mild MR/TR], HTN, COPD, ARPIT on BiPAP, pulmonary HTN, DM2, CKD [baseline creatinine around 3.4], chronic anemia [baseline hemoglobin of 11-12], chronic thrombocytopenia, chronic bilateral lower leg wounds secondary to calciphylaxis presented to our ED 05/26 for evaluation of altered mental status. Per his , patient was noted to be at his baseline [patient ambulates independently, AOx3, does not need assistance with ADLs, only has minor word finding difficulty] at 2 AM in the morning, but per he was difficult to awake in the morning and there was no focal weakness noted but he was overall weak/dizzy and not his usual self/confused. His confirms that she helps him with medications and has been taking his medications regularly except for the morning dose of insulin on the day of arrival as he was brought to the ED. Chest x-ray and CT of the head reviewed, no acute findings noted. Labs reviewed which seems to be at his baseline. No concerns of infections or dehydration at this point. Bilateral upper extremity jerking movements were noted during bedside exam which were new per his . Patient has history of stroke x1 in the past with no residual motor weakness but has word finding difficulty. Patient was drowsy but O x3 at bedside exam and was coming along better compared to in the morning but still not back to his baseline per his . Given the history of stroke and complex cardiovascular history, stroke versus TIA needs to be ruled out. Stroke order set. Neurology consult. Neurochecks. Resume home meds as appropriate. Await neurology recommendation. PT/OT. Digoxin level. Patient getting sodium thiosulfate for his calciphylaxis treatment for almost 5 weeks now per patient, continue with the same while inpatient. Upon examination: GENERAL: Drowsy and oriented x3. NAD, on RA. occasionally seems forgetful and answers irrelevantly, confirmed by his . HEENT: No pallor, no icterus. Pupils equal, round and reactive to light. Oral mucosa moist. NECK: No JVD, no neck masses. HEART: S1 and S2 heard. Regular rate and rhythm. Systolic murmur over aortic and pulmonic area, no gallop. RESPIRATORY SYSTEM: Normal AP diameter. No accessory muscle use. No wheezing, no crackles. ABDOMEN: Soft, bowel sounds present, nontender, no distention. CENTRAL NERVOUS SYSTEM: No facial droop. Speech is clear. Obeys simple commands. Moves extremities. EXTREMITIES: No edema, no erythema seen. BLE chronic skin wounds --dry and improving. I have seen and examined the patient and have discussed the case with the provider above. I agree with the assessment and plan as stated. (1) Atrial fibrillation Atrial fibrillation type: chronic Qualified Code(s): I48.2 - Chronic atrial fibrillation (2) AMS (altered mental status) Altered mental status type: unspecified Qualified Code(s): R41.82 - Altered mental status, unspecified
[2021-05-26] MEDS ORDERED: DEXTROSE 50% 50 ML SYRINGE IV PRN (14:39)
[2021-05-26] MEDS ORDERED: PHARMACY GLYCEMIC MGMT CONSULT PRN (14:39)
[2021-05-26] MEDS ORDERED: GLUCOSE 10 TABS/TUBE PO PRN (14:39)
[2021-05-26] MEDS ORDERED: CARBOHYDRATES FOR HYPOGLYCEMIA PO PRN (14:39)
[2021-05-26] MEDS ORDERED: PHARMACIST DISCHARGE MED REC CONSULT PRN (14:39)
[2021-05-26] MEDS ORDERED: GLUCOSE 40% GEL 15 GM TUBE PO PRN (14:39)
[2021-05-26] MEDS ORDERED: GLUCAGON FOR INJ 1 MG VIAL SQ PRN (14:39)
[2021-05-26] MEDS ORDERED: POLYETHYLENE (MIRALAX) 17 GM PACK PO PRN (14:39)
[2021-05-26] MEDS ORDERED: FLUTICASONE PROPIONATE NA SPR 16 GM BTL NAE PRN (14:59)
[2021-05-26] MEDS ORDERED: ALBUT/IPRATROP 3MG/0.5MG NEB 3 ML VIAL INH PRN (14:59)
[2021-05-26] MEDS ORDERED: HYDROCODONE/ACETAMOPHEN 5/325MG TAB PO PRN (14:59)
[2021-05-26] MEDS ORDERED: BACLOFEN 10 MG TAB PO PRN (14:59)
[2021-05-26] MEDS ORDERED: ALBUTEROL HFA 8 GM INHALER INH PRN (15:13)
[2021-05-26] MEDS ORDERED: INSULIN GLARGINE SOLOSTAR 100 UNITS/ML 3 ML PEN SC STA (15:28)
[2021-05-26] MEDS: TORSEMIDE 20 MG TAB PO SCH (15:34)
[2021-05-26] MEDS: ISOSORBIDE DINITRATE 10 MG TAB PO SCH (15:35)
[2021-05-26] MEDS: GABAPENTIN 100 MG CAP PO SCH (15:35)
--- NOTE | 2021-05-26 15:38 | Pharmacy Report ---
Pharmacy Glycemic Short Note 2 - Date of Service May 26, 2021 - Glycemic Short BSG Results (Last 24 hours): 05/26/21 05/26/21 11:06 14:44 Glucose 304 H* POC Glucose 322 H* OUTPATIENT ANTIDIABETIC REGIMEN: * Lantus 36 units SQ BID * Humalog 25 units SQ AC * HbA1c = 10.1% (04/12/21) ASSESSMENT: * 66 yo M admitted secondary to altered mental status. Pharmacy has been consulted to assist with inpatient glycemic management. Patient is well known to this service. Did not take any insulin this morning prior to admission and is ordered a T2DM. Known CKD with baseline SCr 3.4 mg/dL. * BSG in ED was 304 mg/dL and was 322 mg/dL upon transfer to floor. Will give a stat dose of Lantus now and begin Novolog based on previous admission data. Targeting a goal BSG of 110-140 mg/dL. * Will monitor BSGs throughout this evening and add a small scaled Lantus dose at HS, if needed. PLAN FOR INPATIENT GLYCEMIC CONTROL: * Basal insulin * Lantus 40 units SQ x 1 * Bolus insulin * NovoLog per scale ACHS or Q6hrs while NPO * Goal Range: Low 110 mg/dL - High 140 mg/dL * Correction Factor: 10 mg/dL/unit * Nutritional / Prandial insulin per carb ratio of 1 unit per 2 grams CHO consumed PLAN FOR DISCHARGE: * To be determined.
[2021-05-26] MEDS: INSULIN ASPART PER UNIT SC SCH ×2 (15:42→20:42)
[2021-05-26 17:10] LABS: Appearance Urine Clear (Clear); Bacteria Urine Automated Negative (Negative); Bilirubin Urine Negative (Negative); Blood Urine Negative (Negative); Color Urine Yellow; Glucose Urine UA 3+ (Negative); Ketones Urine Negative (Negative); Leukocyte Esterase Urine Negative (Negative); Nitrite Urine Negative (Negative); Protein Urine 2+ (Negative); RBC Urine Automated 0-4 /hpf (0-4); Specific Gravity Urine 1.012 (1.000-1.030); Urobilinogen Urine Negative (Negative); WBC Urine Automated 0 /hpf (0-5)
[2021-05-26] MEDS ORDERED: INSULIN ASPART PER UNIT SC ONE (17:15)
[2021-05-26 17:25] LABS: Amphetamines+Metham, Urine Neg (Neg); Barbiturates, Urine Neg (Neg); Benzodiazepine, Urine Neg (Neg); Cocaine, Urine Neg (Neg); MDMA (Ecstacy), Urine Neg (Neg); Methadone, Urine Neg (Neg); Opiate, Urine Neg (Neg); Phencyclidine, Urine Neg (Neg)
[2021-05-26] MEDS: METOPROLOL SUCC 50MG EXT REL TAB PO SCH (21:24)
[2021-05-26] MEDS: ATORVASTATIN 40 MG TAB PO SCH (21:24)
[2021-05-26] MEDS: hydrALAZINE HCL 25 MG TAB PO SCH (21:24)
--- NOTE | 2021-05-26 21:27 | CT Scan Report ---
CT head/brain wo con at 8:53 PM CLINICAL HISTORY: fall, dizzy COMPARISON STUDY: CT from earlier today on 05/26/2021 at 11:[address] DOSE: 614.27 mGy.cm TECHNIQUE: Standard CT of the Brain was performed without IV contrast. A dose lowering technique was utilized adhering to the principles of ALARA. FINDINGS: Extraaxial space: There is no evidence for subdural hematoma. There are no extra-axial fluid collecti ons. Ventricles and cisterns: The ventricles are again mildly dilated bilaterally. There is no evidence f or midline shift or mass effect. Parenchyma: There is no subarachnoid or intraparenchymal hemorrhage. There is no evidence for an acu te infarct or cerebral edema. There is again evidence for an old left MCA infarct with encephalomalac ia is seen involving the left frontal parietal lobe. There is mild cerebral cortical atrophy and decr eased attenuation in the periventricular white matter representing remote small vessel disease. There are no gross mass lesions. Osseous structures: There is no evidence for an acute fracture. The visualized paranasal sinuses are clear. The mastoid air cells are clear bilaterally. Soft tissues: There is no evidence for focal soft tissue swelling. IMPRESSION: No acute intracerebral pathology. No change from the earlier study from today. ACT 112: Negative or not required by law. Electronically signed by: Cassius Barraza M.D. 05/26/2021 9:26 PM
[2021-05-26] MEDS: APIXABAN 2.5 MG TAB PO SCH (21:29)
[2021-05-27] MEDS: INSULIN ASPART PER UNIT SC SCH ×6 (00:18→22:01)
[2021-05-27] MEDS: ISOSORBIDE DINITRATE 10 MG TAB PO SCH ×3 (06:34→17:39)
[2021-05-27 07:32] LABS: Hematocrit (blood only) 35.1 % (42-52); Hemoglobin 11.4 g/dL (14.0-18.0); Mean Corpuscular Hemoglobin 27.9 pg (25-34); Mean Corpuscular Hgb Conc 32.5 g/dL (32-36); Mean Corpuscular Volume 85.8 fL (80-100); Mean Platelet Volume 10.2 fL (7.4-10.4); Platelet Count 132 K/uL (130-400); RDW Coefficient of Variation 14.8 % (11.5-14.5); RDW Standard Deviation 45.9 fL (36.4-46.3); Red Blood Count 4.09 M/uL (4.7-6.1); White Blood Count 7.86 K/uL (4.8-10.8)
[2021-05-27 07:55] LABS: BUN Creatinine Ratio 17.3 (10-20); Calcium 9.3 mg/dl (8.5-10.1); Chol HDL Ratio 5.8 (0-5); Creatinine Clr Calc Pharmacy 25.5 ml/min; Est GFR (African American) 20.8 ml/min; Potassium 3.5 mmol/L (3.5-5.1)
[2021-05-27] MEDS: GABAPENTIN 100 MG CAP PO SCH ×2 (08:00→12:54)
[2021-05-27] MEDS: POTASSIUM CHLORIDE 10 MEQ TABCR PO SCH (08:00)
[2021-05-27] MEDS: APIXABAN 2.5 MG TAB PO SCH ×2 (08:00→21:53)
[2021-05-27] MEDS: ASPIRIN 81 MG ECTAB PO SCH (08:01)
[2021-05-27] MEDS: amLODIPine BESYLATE 5 MG TAB PO SCH (08:01)
[2021-05-27] MEDS: TORSEMIDE 20 MG TAB PO SCH ×2 (08:01→12:53)
[2021-05-27] MEDS: hydrALAZINE HCL 25 MG TAB PO SCH ×3 (08:01→21:54)
[2021-05-27] MEDS: SODIUM CHLORIDE 0.9% 10ML FLUSH IV SCH (08:02)
[2021-05-27] MEDS: METOPROLOL SUCC 50MG EXT REL TAB PO SCH ×2 (08:02→21:54)
[2021-05-27] MEDS: PANTOprazole 40 MG TAB PO SCH (08:02)
[2021-05-27] MEDS: FLUTICASONE/VILANTEROL 100/25MCG 14 PUFFS/INHALER INH SCH (08:03)
[2021-05-27] MEDS ORDERED: INSULIN GLARGINE SOLOSTAR 100 UNITS/ML 3 ML PEN SC SCH ×2 (09:00→21:00)
[2021-05-27 10:59] LABS: Estimated Average Glucose 260 mg/dl; Hemoglobin A1C 10.7 % (4.5-5.6)
--- NOTE | 2021-05-27 13:11 | Pharmacy Report ---
Pharmacy Glycemic Short Note 2 - Date of Service May 27, 2021 - Glycemic Short BSG Results (Last 24 hours): 05/26/21 05/26/21 05/26/21 14:44 16:52 18:44 Glucose POC Glucose 322 H* 420 H* 327 H* 05/26/21 05/26/21 05/27/21 20:30 23:39 03:52 Glucose POC Glucose 226 H 195 H 160 H 05/27/21 05/27/21 05/27/21 07:06 07:12 11:27 Glucose 184 H POC Glucose 189 H 187 H OUTPATIENT ANTIDIABETIC REGIMEN: * Lantus 36 units SQ BID * Humalog 25 units SQ AC * HbA1c = 10.1% (04/12/21) ASSESSMENT: 05/27 * BSGs much improved overnight, fasting BSG of 189 mg/dL this morning * Prior inpatient BSG data suggests Lantus 12 units SC BID + currently ordered Novolog parameters are generally adequate, will plan to utilize this regimen again. Slightly higher Lantus dose this morning due to likely basal deficiency. * No new/obvious stressors identified 05/26 * 66 yo M admitted secondary to altered mental status. Pharmacy has been consulted to assist with inpatient glycemic management. Patient is well known to this service. Did not take any insulin this morning prior to admission and is ordered a T2DM. Known CKD with baseline SCr 3.4 mg/dL. * BSG in ED was 304 mg/dL and was 322 mg/dL upon transfer to floor. Will give a stat dose of Lantus now and begin Novolog based on previous admission data. Targeting a goal BSG of 110-140 mg/dL. * Will monitor BSGs throughout this evening and add a small scaled Lantus dose at HS, if needed. PLAN FOR INPATIENT GLYCEMIC CONTROL: * Basal insulin * Lantus 15 units SC x 1 this morning, 10 units SC HS * Lantus 12 units SC BID thereafter * Bolus insulin * NovoLog per scale ACHS or Q6hrs while NPO * Goal Range: Low 110 mg/dL - High 140 mg/dL * Correction Factor: 10 mg/dL/unit * Nutritional / Prandial insulin per carb ratio of 1 unit per 2 grams CHO consumed PLAN FOR DISCHARGE: * To be determined.
--- NOTE | 2021-05-27 13:20 | Hospitalist Progress Note ---
Date of Service May 27, 2021 Assessment & Plan (1) AMS (altered mental status): Plan: Acute Metabolic Encephalopathy Unclear etiology. Labwork and imaging so far unrevealing Will evaluate for subacute/acute CVA. CT head is negative for acute findings but shows old MCA stroke. MRI brain without contrast is ordered but first will need to determine if PPM is MRI compatible. Consideration of accumulation of metabolic byproducts of medications (Gabapentin, Hydrocodone, Baclofen) which patient takes chronically for his pain and muscle spasms, however with his CKD stage 4, he is at increased risk for side effects Will check ABG, Ammonia, RPR, B12, Folate, ESR Will hold all sedating medications Neurology consult pending (2) Acute hyperglycemia: Plan: see below (3) Poorly controlled diabetes mellitus: Plan: A1c of 10.1 in Mar 2021 Basal/bolus insulin per protocol while in-patient Glycemic consult placed BSG AC HS (4) CAD (coronary artery disease): Plan: Stable. Continue aspirin, statin, Toprol, Imdur (5) COPD (chronic obstructive pulmonary disease): Plan: Stable. Continue home inhalers (6) Atrial fibrillation: Plan: Controlled. Continue digoxin, Toprol, Eliquis for anticoagulation (7) Peripheral arterial disease: Plan: Continue aspirin, statin (8) Chronic systolic (congestive) heart failure: Plan: Appears compensated. 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 Undergoing tx at [facility] for past 5 weeks with sodium thiosulfate infusions M-F Open wound with eschar on RLE. Two wounds recently closed on LLE. Wound care nurse consulted (10) CKD (chronic kidney disease) stage 4, GFR 15-29 ml/min: Plan: Baseline creatinine ~3.5 Follows with [facility] nephrology Avoid nephrotoxic agents (11) Elevated troponin I level: Plan: Chronically elevated in setting of CKD IV, at baseline around 0.100 (12) ARPIT (obstructive sleep apnea): Plan: May use bipap from home with 2L O2 (13) Thrombocytopenia: Plan: Plt at baseline. Monitor with daily CBC Plan: DVT Ppx: Eliquis Will admit to inpatient Admission and Anticipated Discharge Date Admission Date: May 26, 2021 Subjective remains very drowsy Collaborative information was collected from : no recent medication changes, no recent illness, patient has been in his usual state of health until yesterday morning when she had difficulty waking him. Overnight fell twice and currently has a bedside sitter Physical Exam Physical Exam: no acute distress, very drowsy/somnolent but arousable, mid exam he would fall back asleep Neck: supple Respiratory: breathing comfortably on room air, no wheezing/rhonchi/rales Cardiovascular: regular rate and rhythm, no murmurs/rubs/gallops Gastrointestinal (Abdomen): soft, non tender, non distended Musculoskeletal: no edema Neurologic: drowsy but arousable, spontaneously moving all 4 extremities, follows commands Results & Data Results & Data ([facility]) Vital Signs (Past 12 Hours) Vital Signs Temp Pulse Pulse Pulse Resp BP Pulse Ox 05/27/21 12:56 37.0 C 61 18 163/73 H 96 05/27/21 09:12 37.1 C 62 16 160/74 H 96 05/27/21 09:10 90 05/27/21 03:36 36.7 C 64 20 142/82 H 94 Laboratory Results Short CBC 05/27/21 Range/Units 07:06 WBC 7.86 (4.8-10.8) K/uL Hgb 11.4 L (14.0-18.0) g/dL Hct 35.1 L (42-52) % Plt Count 132 (130-400) K/uL BMP 05/27/21 07:06 Sodium 143 Potassium 3.5 Chloride 107 Carbon Dioxide 26 BUN 58 H Creatinine 3.35 H Glucose 184 H Calcium 9.3 Urine 05/26/21 Range/Units 16:45 Urine Color Yellow Urine Appearance Clear (Clear) Urine pH 5.0 (4.5-7.5) Ur Specific [place] 1.012 (1.000-1.030) Urine Protein 2+ H (Negative) Urine Glucose (UA) 3+ H (Negative) Medications Administered Current Inpatient Medications Acetaminophen (Acetaminophen 325 Mg Tab) 650 mg PO Q4H PRN PRN Reason: Pain or Fever Stop: 06/25/21 14:38 Albuterol (Albuterol Hfa 8 Gm Inhaler) 2 puffs INH Q4R PRN PRN Reason: Shortness Of Breath Or Wheezing Stop: 06/25/21 15:12 Albuterol (Albut/Ipratrop 3mg/0.5mg Neb 3 Ml Vial) 3 ml INH QIDR PRN; Protocol PRN Reason: Shortness Of Breath Or Wheezing Stop: 06/25/21 14:58 Amlodipine Besylate (Amlodipine Besylate 5 Mg Tab) 2.5 mg PO QAM [facility] Stop: 06/26/21 08:59 Last Admin: 05/27/21 08:01 Dose: 2.5 mg Documented by: Apixaban (Apixaban 2.5 Mg Tab) 2.5 mg PO BID [facility] Stop: 06/25/21 20:59 Last Admin: 05/27/21 08:00 Dose: 2.5 mg Documented by: Aspirin (Aspirin 81 Mg Ectab) 81 mg PO QAM [facility] Stop: 06/26/21 08:59 Last Admin: 05/27/21 08:01 Dose: 81 mg Documented by: Atorvastatin Calcium (Atorvastatin 40 Mg Tab) 80 mg PO QPM [facility] Stop: 06/25/21 20:59 Last Admin: 05/26/21 21:24 Dose: 80 mg Documented by: Dextrose (Dextrose 50% 50 Ml Syringe) 25 - 50 ml IV UD PRN; Protocol PRN Reason: Hypoglycemia Protocol Stop: 06/25/21 14:38 Digoxin (Digoxin 0.125 Mg Tab) 0.125 mg PO DAILY@1600 [facility] Stop: 06/26/21 15:59 Fluticasone Propionate (Fluticasone Propionate Na Spr 16 Gm Btl) 2 sprays BRAULIO DAILY PRN PRN Reason: Nasal Congestion Stop: 06/25/21 14:58 Fluticasone/Vilanterol (Fluticasone/Vilanterol 100/25mcg 14 Puffs/Inhaler) 1 puffs INH QAM [facility] Stop: 06/26/21 08:59 Last Admin: 05/27/21 08:03 Dose: 1 puffs Documented by: Glucagon (Glucagon For Inj 1 Mg Vial) 1 mg SQ UD PRN; Protocol PRN Reason: Hypoglycemia Protocol Stop: 06/25/21 14:38 Glucose (Glucose 10 Tabs/Tube) 4 - 8 tabs PO UD PRN; Protocol PRN Reason: Hypoglycemia Protocol Stop: 06/25/21 14:38 Glucose (Glucose 40% Gel 15 Gm Tube) 15 - 30 gm PO UD PRN; Protocol PRN Reason: Hypoglycemia Protocol Stop: 06/25/21 14:38 Heparin Sodium (Beef Lung) (Heparin 10 Unit/Ml 5 Ml Flush) 5 ml FLUSH PRN PRN PRN Reason: Flush Stop: 06/25/21 16:54 Hydralazine HCl (Hydralazine Hcl 25 Mg Tab) 75 mg PO TID [facility] Stop: 06/25/21 20:59 Last Admin: 05/27/21 12:54 Dose: 75 mg Documented by: Insulin Aspart (Insulin Aspart Per Unit) 0 units SC ACHS [facility]; Protocol Stop: 06/25/21 16:29 Last Admin: 05/27/21 12:52 Dose: 5 units Documented by: Insulin Glargine (Insulin Glargine Solostar 100 Units/Ml 3 Ml Pen) 10 units SC HS [facility]; Protocol Stop: 05/27/21 21:01 Insulin Glargine (Insulin Glargine Solostar 100 Units/Ml 3 Ml Pen) 12 units SC BID [facility]; Protocol Stop: 06/27/21 08:59 Isosorbide Dinitrate (Isosorbide Dinitrate 10 Mg Tab) 10 mg PO TID@0700,1200,1700 [facility] Stop: 06/25/21 16:59 Last Admin: 05/27/21 12:54 Dose: 10 mg Documented by: Metoprolol Succinate (Metoprolol Succ 50mg Ext Rel Tab) 100 mg PO BID [facility] Stop: 06/25/21 20:59 Last Admin: 05/27/21 08:02 Dose: 100 mg Documented by: Miscellaneous (Carbohydrates For Hypoglycemia ) 15 - 30 gm PO UD PRN PRN Reason: Hypoglycemia Protocol Stop: 06/25/21 14:38 Miscellaneous Information (Pharmacy Glycemic Mgmt Consult) 1 ea N/A UD PRN; Protocol PRN Reason: Consult Stop: 06/25/21 14:38 Miscellaneous Information (Pharmacist Discharge Med Rec Consult) 1 ea N/A UD PRN PRN Reason: Consult Stop: 06/25/21 14:38 Ondansetron HCl (Ondansetron Inj 2 Mg/Ml 2 Ml Vial) 4 mg IV Q6H PRN PRN Reason: Nausea Stop: 06/25/21 14:38 Pantoprazole Sodium (Pantoprazole 40 Mg Tab) [facility] [place] Stop: 06/26/21 08:59 Last Admin: 05/27/21 08:02 Dose: 40 mg Documented by: Polyethylene Glycol (Polyethylene (Miralax) 17 Gm Pack) 17 gm PO DAILY PRN PRN Reason: Constipation Stop: 06/25/21 14:38 Potassium Chloride (Potassium Chloride 10 Meq Tabcr) 10 meq [facility] [place] Stop: 06/26/21 08:59 Last Admin: 05/27/21 08:00 Dose: 10 meq Documented by: Sodium Chloride (Sodium Chloride 0.9% 10ml Flush) 10 ml IV DAILY [facility] Stop: 06/26/21 08:59 Last Admin: 05/27/21 08:02 Dose: 10 ml Documented by: Torsemide (Torsemide 20 Mg Tab) 40 mg PO QAM [facility] Stop: 06/26/21 08:59 Last Admin: 05/27/21 08:01 Dose: 40 mg Documented by: Torsemide (Torsemide 20 Mg Tab) 20 mg PO TODAY@1400 [facility] Stop: 06/25/21 15:29 Last Admin: 05/27/21 12:53 Dose: 20 mg Documented by: (1) Atrial fibrillation Atrial fibrillation type: chronic Qualified Code(s): I48.2 - Chronic atrial fibrillation (2) AMS (altered mental status) Altered mental status type: unspecified Qualified Code(s): R41.82 - Altered mental status, unspecified
[2021-05-27] MEDS ORDERED: TORSEMIDE 20 MG TAB PO SCH ×2 (14:00→15:30)
[2021-05-27 14:12] LABS: Base Excess ABG 1.4 mEq/L (-9-1.8); HCO3 ABG 24 mmol/L (19-24); Oxygen Saturation ABG 97.5 % (90-95); PCO2 ABG 30 mmHg (35-46); PO2 ABG 90 mmHg (80-95)
[2021-05-27 14:18] LABS: Allen Test Pos (Pos)
[2021-05-27 14:23] LABS: pH ABG 7.52 (7.35-7.45)
[2021-05-27] MEDS: DIGOXIN 0.125 MG TAB PO SCH (17:39)
[2021-05-27 17:59] LABS: Magnesium 2.2 mg/dl (1.7-2.4); Phosphorus 2.9 mg/dl (2.5-4.9)
--- NOTE | 2021-05-27 18:30 | Consultation Report ---
DATE OF SERVICE: 05/27/2021 REASON FOR CONSULTATION: Confusion, abnormal movement. HISTORY OF PRESENT ILLNESS: The patient is 66-year-old right-handed male. The chart served as the historian as well as the patient's and the patient's [id number]. The patient has a history of chronic systolic heart failure secondary to nonischemic cardiomyopathy. He is status post ICD, has chronic left bundle branch block, coronary artery disease, peripheral vascular disease, history of left MCA stroke while briefly off anticoagulants, valvular heart disease with severe aortic stenosis, COPD, obstructive sleep apnea, pulmonary hypertension, insulin-dependent diabetes, chronic kidney disease, chronic thrombocytopenia, chronic leg wound secondary to calciphylaxis, medication noncompliance per chart, past tobacco abuse and other medical history, presented with a change in mental status. His reports that he was confused and sleepy upon awakening, he was leaning to the left and had some twitching of the upper extremities, which was new. He does have a tremor at baseline, but this was different. He was otherwise well. None of his medicines were new or changed in dose. He had taken a dose of hydrocodone as well as baclofen on each of the several days prior. He otherwise tended to take those as needed. There has been no change in his gabapentin dosing. He has not recently been ill. He had a history of a left MCA stroke a year and a half ago with marginal residual word finding difficulty. He had recently started sodium thiosulfate infusions 5 weeks ago. His blood sugar at home was 300, but that is not unusual. Per chart, no fevers, chills, sweats, chest pain, shortness of breath, nausea, vomiting, abdominal pain, dysuria, diarrhea or constipation. Nursing does note that there has been some intermittent urinary retention. On admission, white count was normal, hemoglobin 11.5, platelet count 114. INR 1.1, PTT normal. Sodium 138, potassium 3.7, BUN/creatinine 58/3.5, essentially baseline. Blood sugar 304, calcium 9.3. Transaminases normal. Magnesium 2.1, total bilirubin normal. Troponin elevated. Albumin 3.8, LDL 74. TSH 4.4. Urinalysis notable for 2+ protein, 3+ glucose, 5-10 epithelial cells. Digoxin 1.5. Tox screen negative. Flu negative. COVID negative. CT of the head x2 noncontributory. There is cerebral cortical atrophy and remote small vessel disease with an old left MCA infarction. A second image was repeated after the patient had a fall while hospitalized and did not show any acute abnormality. I do see some intracranial atherosclerosis and vascular calcification, but I do not see any intraparenchymal calcium deposits. PAST MEDICAL HISTORY: As above. Medical history also includes AFib, history of COVID-19 in 07/2020, multiple pulmonary nodules, peripheral vascular disease, stroke as mentioned above. PAST SURGICAL HISTORY: Cardiac cath, total adrenalectomy, colonoscopy, esophagogastroduodenoscopy, debridement of left lower extremity. SOCIAL HISTORY: The patient smokes, alcohol by report, did not confirm separately. HOME MEDICATIONS: Aspirin, Protonix, gabapentin 300 mg a day, albuterol, Nasonex, ipratropium, Breo Ellipta, baclofen 10 mg, metoprolol, amlodipine, atorvastatin, insulin, hydralazine, hydrocodone, potassium, digoxin, isosorbide, torsemide. FAMILY HISTORY: Notable for diabetes, hypertension, lung cancer. REVIEW OF SYSTEMS: Cannot be obtained. CURRENT MEDICATIONS: Insulin, isosorbide, potassium, torsemide, amlodipine, apixaban, aspirin, atorvastatin, hydralazine, metoprolol, p.r.n. Tylenol, Zofran, albuterol, subcutaneous heparin. Hydrocodone has been discontinued as has baclofen, gabapentin has been held. PHYSICAL EXAMINATION: VITAL SIGNS: Blood pressure 163/73, temperature 37, pulse ox 96 on room air, pulse rate 61. The patient is sleepy, but arousable, is able to be awakened and will state name. He is unable to state his location, but correctly picks that he is in the hospital. There may be some minor right/left confusion. He follows some simple 1-step commands but easily falls asleep. Naming seemed intact. He had no personal complaints. It appeared that his sense of humor was intact as he laughed when his [id number] said something entertaining. His head was normocephalic, atraumatic. His pupils are equal, round and reactive to light. Optic nerves did not show any evidence of hemorrhage or papilledema. Lateral visual pedersen seemed intact to confrontation. There was no obvious facial droop. There was some paraphasia and if he was not awake, his speech was less distinct. Upper extremities are both fairly full, within the limits of testing. He spontaneously moves his right leg more than left. Reflexes are symmetric, toes are downgoing. He was not awake enough to perform cerebellar or sensory testing. Random brief myoclonic jerks are noted in the upper extremity. IMPRESSION: This patient appears to have an encephalopathy/delirium. His exam appears relatively nonfocal. I see no evidence of an aphasia other than perhaps one isolated episode of difficulty with word finding, which was probably consistent with his level of alertness. Myoclonic jerks as above, see discussion of encephalopathy. PLAN: I would recommend checking an ammonia, ionized calcium and I defer to primary care or nephrology whether or not the patient needs an aluminum level. I agree with holding his narcotics and baclofen, and it is probably reasonable to hold the gabapentin as well. I would recommend a pharmacy consult regarding his medications as well as his sodium thiosulfate. I have no prior experience with that. It is reported to cause confusion, but I suspect that would be on the day of infusion. Theoretically, the calciphylaxis can affect other vascular systems other than peripheral vascular. I recommend a followup CT of the head in the morning provided the patient is not rapidly improving and an EEG. The hospitalist team is to determine if he can have an MRI of the brain and I think that would be helpful as well. There are no obvious signs of infection. He does not have a white count or fever, but obviously we would need to keep that within the differential. We will follow with you. If sudden change rec urgent CT head. MD Julio Job ID: [id number] MTDD
[2021-05-27] MEDS: ATORVASTATIN 40 MG TAB PO SCH (21:53)
[2021-05-28 07:56] LABS: Basophils # (auto) 0.01 K/uL (0-0.2); Basophils % (auto) 0.1 %; Eosinophils # (auto) 0.09 K/uL (0-0.5); Hematocrit (blood only) 39.1 % (42-52); Hemoglobin 12.7 g/dL (14.0-18.0); Immature Granulocytes # (auto) 0.01 K/uL (0.00-0.02); Immature Granulocytes % (auto) 0.1 %; Lymphocytes # (auto) 0.72 K/uL (1.2-3.4); Lymphocytes % (auto) 7.9 %; Mean Corpuscular Hemoglobin 27.8 pg (25-34); Mean Corpuscular Hgb Conc 32.5 g/dL (32-36); Mean Corpuscular Volume 85.6 fL (80-100); Mean Platelet Volume 9.8 fL (7.4-10.4); Monocytes # (auto) 1.02 K/uL (0.11-0.59); Monocytes % (auto) 11.2 %; Neutrophils # (auto) 7.27 K/uL (1.4-6.5); Neutrophils % (auto) 79.7 %; Platelet Count 139 K/uL (130-400); RDW Standard Deviation 46.8 fL (36.4-46.3); Red Blood Count 4.57 M/uL (4.7-6.1); White Blood Count 9.12 K/uL (4.8-10.8)
[2021-05-28] MEDS: ASPIRIN 81 MG ECTAB PO SCH (07:58)
[2021-05-28] MEDS: ISOSORBIDE DINITRATE 10 MG TAB PO SCH ×3 (07:58→16:30)
[2021-05-28] MEDS: POTASSIUM CHLORIDE 10 MEQ TABCR PO SCH (07:58)
[2021-05-28] MEDS: hydrALAZINE HCL 25 MG TAB PO SCH ×3 (07:58→21:08)
[2021-05-28] MEDS: amLODIPine BESYLATE 5 MG TAB PO SCH (07:58)
[2021-05-28] MEDS: METOPROLOL SUCC 50MG EXT REL TAB PO SCH ×2 (07:59→21:10)
[2021-05-28] MEDS: PANTOprazole 40 MG TAB PO SCH (07:59)
[2021-05-28] MEDS: TORSEMIDE 20 MG TAB PO SCH ×2 (08:00→14:34)
[2021-05-28] MEDS: SODIUM CHLORIDE 0.9% 10ML FLUSH IV SCH (08:00)
[2021-05-28] MEDS: APIXABAN 2.5 MG TAB PO SCH ×2 (08:00→21:07)
[2021-05-28] MEDS: FLUTICASONE/VILANTEROL 100/25MCG 14 PUFFS/INHALER INH SCH (08:01)
[2021-05-28] MEDS: INSULIN GLARGINE SOLOSTAR 100 UNITS/ML 3 ML PEN SC SCH ×2 (08:02→21:09)
[2021-05-28] MEDS: INSULIN ASPART PER UNIT SC SCH ×4 (08:09→21:10)
[2021-05-28 08:35] LABS: BUN Creatinine Ratio 16.8 (10-20); Calcium 9.6 mg/dl (8.5-10.1); Creatinine Clr Calc Pharmacy 28.7 ml/min; Est GFR (Non-African American) 20.7 ml/min; Potassium 3.5 mmol/L (3.5-5.1)
[2021-05-28 08:45] LABS: Folate (Folic Acid) 8.86 ng/ml (>5.38)
[2021-05-28 08:46] LABS: Albumin Globulin Ratio 1.3 (0.9-2); Globulin 3.1 gm/dl (2.5-4.0); Total Protein 7.1 gm/dl (6.0-8.3)
[2021-05-28] MEDS: ACETAMINOPHEN 325 MG TAB PO PRN ×2 (09:39→21:30)
--- NOTE | 2021-05-28 09:43 | Pharmacy Report ---
Pharmacy Glycemic Short Note 2 - Date of Service May 28, 2021 - Glycemic Short BSG Results (Last 24 hours): 05/27/21 05/27/21 05/27/21 11:27 16:42 21:19 Glucose POC Glucose 187 H 200 H 167 H 05/28/21 05/28/21 07:26 07:31 Glucose 224 H POC Glucose 216 H OUTPATIENT ANTIDIABETIC REGIMEN: * Lantus 36 units SQ BID * Humalog 25 units SQ AC * HbA1c = 10.1% (04/12/21) ASSESSMENT: 05/28 * Blood sugars all slightly elevated, but adequately controlled for this patient with A1c 10.1%, fasting 216mg/dl, will add over night check and tighten CF slightly. * No changes to basal as it was just adjusted yesterday and today. May need to increase if patient requiring correctional insulin overnight. 05/27 * BSGs much improved overnight, fasting BSG of 189 mg/dL this morning * Prior inpatient BSG data suggests Lantus 12 units SC BID + currently ordered NovoLog parameters are generally adequate, will plan to utilize this regimen again. Slightly higher Lantus dose this morning due to likely basal de ficiency. * No new/obvious stressors identified 05/26 * 66 yo M admitted secondary to altered mental status. Pharmacy has been consulted to assist with inpatient glycemic management. Patient is well known to this service. Did not take any insulin this morning prior to admission and is ordered a T2DM. Known CKD with baseline SCr 3.4 mg/dL. * BSG in ED was 304 mg/dL and was 322 mg/dL upon transfer to floor. Will give a stat dose of Lantus now and begin Novolog based on previous admission data. Targeting a goal BSG of 110-140 mg/dL. * Will monitor BSGs throughout this evening and add a small scaled Lantus dose at HS, if needed. PLAN FOR INPATIENT GLYCEMIC CONTROL: * Basal insulin * Lantus 12 units SC BID * Bolus insulin * NovoLog per scale ACHS or Q6hrs while NPO and overnight at 0200 * Goal Range: Low 110 mg/dL - High 140 mg/dL * Correction Factor: 9 mg/dL/unit * Nutritional / Prandial insulin per carb ratio of 1 unit per 2 grams CHO consumed PLAN FOR DISCHARGE: * To be determined.
[2021-05-28] MEDS ORDERED: LORazepam 0.25 MG/0.5 ML VIAL IV STA (11:42)
--- NOTE | 2021-05-28 12:29 | Neurology Progress Note ---
Date of Service May 28, 2021 Assessment & Plan (1) AMS (altered mental status): Plan: 1. MRI no new stroke 2. EEG ordered - preliminary report encephalopathy no seizure focus 3. correct metabolic abnormalities 4. sedative medications -on hold- when restarting low dosing 5. home gabapentin dose appropriate for renal function at 100 mg TID 6. unclear if he took additional doses of pain medication but this is not typical behavior according to 7. TTE- severe aortic stenosis EF 40-45% 8. baclofen dosing should be addressed renal impairment <30 2.5 mg q 12 hours or avoid use. 9. recommend consulting nephrology will follow up after discharge with neurology 4-6 weeks Admission and Anticipated Discharge Date Admission Date: May 27, 2021 Supervising Physician Co-Signing Physician Notes I have seen and discussed above patient with Dr Roxann Palacios, neurology. Patient seen and examined. MRI of the brain reviewed and shows no acute abnormality. It shows old chronic vascular changes specifically a left MCA infarction. The patient's calcium magnesium and phosphorus are normal. Creatinine improving. Ammonia normal ABG noncontributory EEG. Limb diffusely slow consistent with encephalopathy no seizure activity The patient is awake and alert orientation checked by Roxann Eldridge's exam. Some right left confusion follow simple commands naming is unremarkable. There are normal visual pedersen motility facial symmetry. Symmetric upper and lower extremity strength. There is no significant dystaxia on [id number]. Minor myoclonus/asterixis is noted in outstretched hands Improved polyfactorial encephalopathy patient still not at baseline but improving. The patient had some difficulty sleeping last night related to pain in his legs I think would be reasonable to restart gabapentin 100 mg twice a day. See Roxann's advice regarding maximum baclofen dose. I would not restart at present. Agree with nephrology consultation. They have been managing the patient's calciphylaxis central nervous system involvement is rare. CT of the head did not show intraparenchymal calcification although there was intravascular calcification but that could be quite typical for age and vascular risk factors. MRI of the brain did not show any evidence of acute thrombosis. We will check back on patient tomorrow to ensure that he is continued to improve from his encephalopathy. Roxann Pedro is a 66 year old male with a PMH- chronic systolic heart failure 2/2 nonischemic cardiomyopathy (EF of 30-34%, TTE 2020), s/p ICD, chronic LBBB, h/o nonocclusive CAD, PVD, h/o CVA, Atrial fibrillation on Eliquis, valvular heart disease (severe aortic stenosis, mild MR/TR on recent TTE), HTN, COPD, ARPIT, pulmonary hypertension, DM 2 insulin dependent, CKD (baseline creatinine of 3.4), chronic thrombocytopenia, chronic left leg wound secondary to calciphylaxis, medication noncompliance, past tobacco abuse who presents to [facility] 05/26/2021 with altered mental status. He was lethargic and difficult to wake up. He was leaning towards left side, felt lightheaded and "wobbly" but no focal weakness. Headache in back of head prior to arrival. He has a new tremor in BUE noted at rest since yesterday. He had a stroke 12/18/2019 but only residual deficit is occasional difficulty with word finding. He is sitting up in bed with and son in the room. is questioning his renal function and whether he needs dialysis. He thinks he is doing great. Review of Systems Review of Systems: All systems reviewed & are unremarkable except as noted in HPI & below Physical Exam Physical Exam: Physical Exam: Constitutional: appearance over nourished Ears, Nose, Mouth and Throat: mucous membranes moist, no injection and skin normal, eyes normal Cardiovascular: opening murmur Respiratory: course breath sounds Musculoskeletal: non pitting peripheral edema Skin: Left LE lesion acutely tender covered Eyes: extraocular muscles intact (EOMI) and pupils equal, round and reactive to light (PERRL) NEUROLOGIC EXAMINATION: Mental status: Alert and interactive Oriented to [facility], 2021, knows his address Oriented to person Speech fluent with no evidence of aphasia, gets paranoid with nursing coming into room Cranial Nerves smile eye brow raise symmetric Sensory: intact cool and light touch Coordination: finger to nose gets confused about switching hands but when prompted does task Gait/Stance: Posture normal. Gait normal: with steady with steps, base, turning, heel and toe walking and tandem gait. Motor: Negative for pronator drift of out stretched arms with eyes closed. again confused with command Strength: hand card feeder biceps triceps 5/5 hip flex 5/5 Results & Data ([facility]) Vital Signs (Past 12 Hours) Vital Signs Pulse 05/28/21 09:00 78 Laboratory Results Abnormal lab results 05/27/21 05/27/21 05/27/21 Range/Units 13:57 16:42 17:24 RBC (4.7-6.1) M/uL Hgb (14.0-18.0) g/dL Hct (42-52) % RDW Std Deviation (36.4-46.3) fL RDW Coeff of Joey (11.5-14.5) % Neut # (Auto) (1.4-6.5) K/uL Lymph # (Auto) (1.2-3.4) K/uL [place] # (Auto) (0.11-0.59) K/uL ESR (0-20) mm/hr ABG pH 7.52 H* (7.35-7.45) ABG pCO2 30 L (35-46) mmHg ABG O2 Saturation 97.5 H (90-95) % Anion Gap (3-11) BUN (6-23) mg/dl Creatinine (0.6-1.4) mg/dl Glucose (70-99(Fasting)) mg/dl POC Glucose 200 H (70-99) mg/dl Ammonia 16.0 L (18-72) umol/L 05/27/21 05/28/21 05/28/21 Range/Units 21:19 07:26 07:31 RBC 4.57 L (4.7-6.1) M/uL Hgb 12.7 L (14.0-18.0) g/dL Hct 39.1 L (42-52) % RDW Std Deviation 46.8 H (36.4-46.3) fL RDW Coeff of Joey 15.0 H (11.5-14.5) % Neut # (Auto) 7.27 H (1.4-6.5) K/uL Lymph # (Auto) 0.72 L (1.2-3.4) K/uL [place] # (Auto) 1.02 H (0.11-0.59) K/uL ESR (0-20) mm/hr ABG pH (7.35-7.45) ABG pCO2 (35-46) mmHg ABG O2 Saturation (90-95) % Anion Gap (3-11) BUN (6-23) mg/dl Creatinine (0.6-1.4) mg/dl Glucose (70-99(Fasting)) mg/dl POC Glucose 167 H 216 H (70-99) mg/dl Ammonia (18-72) umol/L 05/28/21 05/28/21 05/28/21 Range/Units 07:31 07:31 11:45 RBC (4.7-6.1) M/uL Hgb (14.0-18.0) g/dL Hct (42-52) % RDW Std Deviation (36.4-46.3) fL RDW Coeff of Joey (11.5-14.5) % Neut # (Auto) (1.4-6.5) K/uL Lymph # (Auto) (1.2-3.4) K/uL [place] # (Auto) (0.11-0.59) K/uL ESR 70 H (0-20) mm/hr ABG pH (7.35-7.45) ABG pCO2 (35-46) mmHg ABG O2 Saturation (90-95) % Anion Gap 13 H (3-11) BUN 50 H (6-23) mg/dl Creatinine 2.98 H D (0.6-1.4) mg/dl Glucose 224 H (70-99(Fasting)) mg/dl POC Glucose 205 H (70-99) mg/dl Ammonia (18-72) umol/L Diagnostic Findings CXR-No acute cardiopulmonary disease. CT head-No acute intracerebral pathology. No change from the earlier study from today. MRI brain-No evidence of acute abnormality. Age-related changes and focal encephalomalacia in the left frontal lobe which may represent prior infarct. TTE- 40-45% EF no ASD severe aortic stenosis (1) AMS (altered mental status) Altered mental status type: unspecified Qualified Code(s): R41.82 - Altered mental status, unspecified
--- NOTE | 2021-05-28 13:57 | Magnetic Resonance Report ---
MR brain wo con CLINICAL HISTORY: r/o stroke TECHNIQUE: Multiplanar and multisequence MR images of the brain were obtained without intravenous con trast. Comparison: Comparison is made to CT head 05/26/2021 FINDINGS: No abnormal restricted diffusion is identified. Foci of T2 and FLAIR hyperintensity are noted in the paraventricular areas consistent with chronic small vessel ischemic disease. Mild diffuse encephaloma lacia is seen. In addition, there is focal encephalomalacia in the left frontal lobe. No extra axial fluid collections are seen. There are no masses, mass effect, or midline shift. The corpus callosum, pituitary gland, and cerebellar tonsils appear grossly unremarkable. Flow voids of the major intracranial arterial vessels are identified. The imaged portions of the para nasal sinuses, mastoid air cells, and orbits are unremarkable. IMPRESSION: No evidence of acute abnormality. Age-related changes and focal encephalomalacia in the left frontal lobe which may represent prior infarct. ACT 112: Negative or not required by law. Electronically signed by: Edilberto Stearns M.D. 05/28/2021 1:56 PM
--- NOTE | 2021-05-28 15:45 | Hospitalist Progress Note ---
Date of Service May 28, 2021 Assessment & Plan (1) AMS (altered mental status): Plan: Most likely due to sedative effects of his baclofen+gabapentin+hydrocodone in setting of CKD stage 4 Mental status has markedly improved with holding of above medications B12, folate, ammonia, ABG unrevealing RPR pending ESR elevated but with no evidence of headache/vision changes MRI brain shows encephalomalacia, evidence of prior stroke EEG shows encephalopathy Appreciate Neurology input, recommend Nephrology consult. Will need follow up with Neurology in 4-6 weeks (2) Acute hyperglycemia: Plan: see below (3) Poorly controlled diabetes mellitus: Plan: A1c of 10.1 in Mar 2021 Basal/bolus insulin per protocol while in-patient Glycemic consult placed BSG AC HS (4) CAD (coronary artery disease): Plan: Stable. Continue aspirin, statin, Toprol, Imdur (5) COPD (chronic obstructive pulmonary disease): Plan: Stable. Continue home inhalers (6) Atrial fibrillation: Plan: Controlled. Continue digoxin, Toprol, Eliquis for anticoagulation (7) Peripheral arterial disease: Plan: Continue aspirin, statin (8) Chronic systolic (congestive) heart failure: Plan: Appears compensated. 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 Undergoing tx at [facility] for past 5 weeks with sodium thiosulfate infusions M-F Open wound with eschar on RLE. Two wounds recently closed on LLE. Wound care nurse consulted (10) CKD (chronic kidney disease) stage 4, GFR 15-29 ml/min: Plan: Baseline creatinine ~3.5. Cr remains stable Follows with [facility] nephrology, will ask for Nephrology consult per Neuro recommendations Avoid nephrotoxic agents (11) Elevated troponin I level: Plan: Chronically elevated in setting of CKD IV, at baseline around 0.100 (12) ARPIT (obstructive sleep apnea): Plan: May use bipap from home with 2L O2 (13) Thrombocytopenia: Plan: Plt at baseline. Plan: DVT Ppx: Eliquis Admission and Anticipated Discharge Date Admission Date: May 27, 2021 Subjective Awake today and argumentative. is present at bedside and helping to coax him to attend studies. He initially refused MRI brain but later agreed. "There's nothing wrong with my brain!" Also had EEG today Physical Exam Physical Exam: Exam limited due to patient's labile mood sitting in bed, he is awake, recognizes his , answers questions ap propriately but easily agitated ENMT: normocephalic, atraumatic Neck: supple Respiratory: Breathing comfortably on room air Cardiovascular: deferred Neurologic: awake, alert, spontaneously moving extremities Psychiatric: easily agitated, not agreeable and requires coaxing/repeated convincing by his "There is nothing wrong with my head!" Results & Data Results & Data ([facility]) Vital Signs (Past 12 Hours) Vital Signs Pulse 05/28/21 14:53 70 05/28/21 09:00 78 Laboratory Results Short CBC 05/28/21 Range/Units 07:31 WBC 9.12 (4.8-10.8) K/uL Hgb 12.7 L (14.0-18.0) g/dL Hct 39.1 L (42-52) % Plt Count 139 (130-400) K/uL BMP 05/28/21 07:31 Sodium 142 Potassium 3.5 Chloride 104 Carbon Dioxide 25 BUN 50 H Creatinine 2.98 H D Glucose 224 H Calcium 9.6 Liver Function 05/28/21 Range/Units 07:31 Total Bilirubin 1.0 (0.2-1.0) mg/dl AST 16 (13-39) U/L ALT 12 (7-52) U/L Alkaline Phosphatase 102 (34-104) U/L Albumin 4.0 (3.4-5.0) gm/dl Diagnostic Findings MRI brain- IMPRESSION: No evidence of acute abnormality. Age-related changes and focal encephalomalacia in the left frontal lobe which may represent prior infarct (1) AMS (altered mental status) Altered mental status type: unspecified Qualified Code(s): R41.82 - Altered mental status, unspecified (2) Atrial fibrillation Atrial fibrillation type: chronic Qualified Code(s): I48.2 - Chronic atrial fibrillation
[2021-05-28] MEDS: DIGOXIN 0.125 MG TAB PO SCH (16:28)
[2021-05-28] MEDS: ATORVASTATIN 40 MG TAB PO SCH (21:08)
[2021-05-29] MEDS ORDERED: oxyCODONE HCL IR 5 MG TAB (IMMEDIATE RELEASE) PO STA (01:09)
[2021-05-29] MEDS ORDERED: INSULIN ASPART PER UNIT SC SCH (02:00)
[2021-05-29] MEDS: ONDANSETRON INJ 2 MG/ML 2 ML VIAL IV PRN ×2 (02:10→16:42)
[2021-05-29] MEDS ORDERED: Nursing to Pharmacy Communication SCH (02:30)
--- NOTE | 2021-05-29 06:14 | Electroencephalogram ---
EEG Procedure Note Date of Service May 28, 2021 Start / End Times Start Time: 09:51 End Time: 10:[address] Roxann Palacios History A 66 year old male with encephalopathy and rare myoclonic jerks. EEG performed for evaluation of epileptiform activity. Home Medication List Medication Instructions Recorded Confirmed Type aspirin 81 mg tablet,delayed 81 mg PO QAM 02/05/18 05/26/21 History release pantoprazole 40 mg tablet,delayed 40 mg PO QAM 02/05/18 05/26/21 History release (Protonix) gabapentin 100 mg capsule 100 mg PO TIDM 05/14/18 05/26/21 History albuterol sulfate 90 mcg/actuation 2 puff INHALATION Q4H PRN 08/01/18 05/26/21 History aerosol inhaler (ProAir HFA) fluticasone propionate 50 2 spray INTRANASAL DAILY PRN 08/01/18 05/26/21 History mcg/actuation nasal spray,suspension (Flonase Allergy Relief) ipratropium 0.5 mg-albuterol 3 mg 3 ml INHALATION QID PRN 08/01/18 05/26/21 History (2.5 mg base)/3 mL nebulization soln fluticasone furoate 100 1 inh INHALATION QAM 03/02/20 05/26/21 History mcg-vilanterol 25 mcg/dose inhalation powder (Breo Ellipta) baclofen 10 mg tablet 10 mg PO HS PRN 08/05/20 05/26/21 History metoprolol succinate 100 mg 100 mg PO BID #60 tab 08/14/20 05/26/21 Rx tablet,extended release 24 hr (Toprol XL) amlodipine 2.5 mg tablet 2.5 mg PO QAM 09/17/20 05/26/21 History atorvastatin 80 mg tablet 80 mg PO QPM 09/17/20 05/26/21 History insulin glargine 100 unit/mL (3 36 unit SUBCUT BID ml 01/17/21 05/26/21 History mL) subcutaneous pen (Lantus Solostar U-100 Insulin) insulin lispro 100 unit/mL 25 unit SUBCUT WM 01/17/21 05/26/21 History subcutaneous pen (Humalog KwikPen (U-100) Insulin) apixaban 2.5 mg tablet 2.5 mg PO BID 03/01/21 05/26/21 History hydralazine 25 mg tablet 75 mg PO TID 04/07/21 05/26/21 History hydrocodone 5 mg-acetaminophen 325 1 tab PO Q4H PRN 04/07/21 05/26/21 History mg tablet potassium chloride 10 mEq 10 meq PO QAM 04/07/21 05/26/21 History tablet,extended release(part/cryst) (Klor-Con M) digoxin 125 mcg (0.125 mg) tablet 125 mcg PO DAILY 04/24/21 05/26/21 History isosorbide dinitrate 10 mg tablet 10 mg PO TID 04/24/21 05/26/21 History torsemide 20 mg tablet 60 mg PO UD 04/24/21 05/26/21 History sodium chloride 0.9 % (flush) 10 ml IV DAILY 05/26/21 05/26/21 History (Normal Saline Flush) Inpatient Medication List Acetaminophen (Acetaminophen 325 Mg Tab) 650 mg PO Q4H PRN PRN Reason: Pain or Fever Stop: 06/25/21 14:38 Last Admin: 05/28/21 21:30 Dose: 650 mg Documented by: [id number] Admin: 05/28/21 09:39 Dose: 650 mg Documented by: [id number] Apixaban (Apixaban 2.5 Mg Tab) 2.5 mg PO BID [facility] Stop: 06/25/21 20:59 Last Admin: 05/28/21 21:07 Dose: 2.5 mg Documented by: [id number] Admin: 05/28/21 08:00 Dose: 2.5 mg Documented by: [id number] Admin: 05/27/21 21:53 Dose: Not Given Documented by: [id number] Admin: 05/27/21 08:00 Dose: 2.5 mg Documented by: [id number] Admin: 05/26/21 21:29 Dose: 2.5 mg Documented by: [id number] Aspirin (Aspirin 81 Mg Ectab) 81 mg PO QAM [facility] Stop: 06/26/21 08:59 Last Admin: 05/28/21 07:58 Dose: 81 mg Documented by: [id number] Admin: 05/27/21 08:01 Dose: 81 mg Documented by: [id number] Atorvastatin Calcium (Atorvastatin 40 Mg Tab) 80 mg PO QPM [facility] Stop: 06/25/21 20:59 Last Admin: 05/28/21 21:08 Dose: 80 mg Documented by: [id number] Admin: 05/27/21 21:53 Dose: Not Given Documented by: [id number] Admin: 05/26/21 21:24 Dose: 80 mg Documented by: [id number] Digoxin (Digoxin 0.125 Mg Tab) 0.125 mg PO DAILY@1600 [facility] Stop: 06/26/21 15:59 Last Admin: 05/28/21 16:28 Dose: 0.125 mg Documented by: [id number] Admin: 05/27/21 17:39 Dose: 0.125 mg Documented by: [id number] Fluticasone/Vilanterol (Fluticasone/Vilanterol 100/25mcg 14 Puffs/Inhaler) 1 puffs INH QAM [facility] Stop: 06/26/21 08:59 Last Admin: 05/28/21 08:01 Dose: 1 puffs Documented by: [id number] Admin: 05/27/21 08:03 Dose: 1 puffs Documented by: [id number] Hydralazine HCl (Hydralazine Hcl 25 Mg Tab) 75 mg PO TID [facility] Stop: 06/25/21 20:59 Last Admin: 05/28/21 21:08 Dose: 75 mg Documented by: [id number] Admin: 05/28/21 14:34 Dose: 75 mg Documented by: [id number] Admin: 05/28/21 07:58 Dose: 75 mg Documented by: [id number] Admin: 05/27/21 21:54 Dose: Not Given Documented by: [id number] Admin: 05/27/21 12:54 Dose: 75 mg Documented by: [id number] Admin: 05/27/21 08:01 Dose: 75 mg Documented by: [id number] Admin: 05/26/21 21:24 Dose: 75 mg Documented by: [id number] Insulin Aspart (Insulin Aspart Per Unit) 0 units SC [facility]; Protocol Stop: 06/25/21 16:29 Last Admin: 05/28/21 21:10 Dose: 8 units Documented by: [id number] Cosigned by: [id number] Admin: 05/28/21 16:55 Dose: 39 units Documented by: [id number] Cosigned by: [id number] Admin: 05/28/21 11:48 Dose: 28 units Documented by: [id number] Cosigned by: [id number] Admin: 05/28/21 08:09 Dose: 8 units Documented by: [id number] Cosigned by: [id number] Admin: 05/27/21 22:01 Dose: 3 units Documented by: [id number] Cosigned by: [id number] Admin: 05/27/21 17:38 Dose: 12 units Documented by: [id number] Cosigned by: [id number] Admin: 05/27/21 12:52 Dose: 5 units Documented by: [id number] Cosigned by: [id number] Admin: 05/27/21 08:51 Dose: 5 units Documented by: [id number] Cosigned by: [id number] Admin: 05/26/21 20:42 Dose: 9 units Documented by: [id number] Cosigned by: [id number] Admin: 05/26/21 15:42 Dose: 44 units Documented by: [id number] Cosigned by: [id number] Insulin Aspart (Insulin Aspart Per Unit) 0 units SC 0200 [facility]; Protocol Stop: 06/28/21 01:59 Last Admin: 05/29/21 02:37 Dose: Not Given Documented by: [id number] Cosigned by: [id number] Insulin Glargine (Insulin Glargine Solostar 100 Units/Ml 3 Ml Pen) 12 units SC BID [facility]; Protocol Stop: 06/27/21 08:59 Last Admin: 05/28/21 21:09 Dose: 12 units Documented by: [id number] Cosigned by: [id number] Admin: 05/28/21 08:02 Dose: 12 units Documented by: [id number] Cosigned by: [id number] Isosorbide Dinitrate (Isosorbide Dinitrate 10 Mg Tab) 10 mg PO TID@0700,1200,1700 [facility] Stop: 06/25/21 16:59 Last Admin: 05/28/21 16:30 Dose: 10 mg Documented by: [id number] Admin: 05/28/21 12:29 Dose: 10 mg Documented by: [id number] Admin: 05/28/21 07:58 Dose: 10 mg Documented by: [id number] Admin: 05/27/21 17:39 Dose: 10 mg Documented by: [id number] Admin: 05/27/21 12:54 Dose: 10 mg Documented by: [id number] Admin: 05/27/21 06:34 Dose: 10 mg Documented by: [id number] Admin: 05/26/21 15:35 Dose: 10 mg Documented by: [id number] Metoprolol Succinate (Metoprolol Succ 50mg Ext Rel Tab) 100 mg PO BID [facility] Stop: 06/25/21 20:59 Last Admin: 05/28/21 21:10 Dose: 100 mg Documented by: [id number] Admin: 05/28/21 07:59 Dose: 100 mg Documented by: [id number] Admin: 05/27/21 21:54 Dose: Not Given Documented by: [id number] Admin: 05/27/21 08:02 Dose: 100 mg Documented by: [id number] Admin: 05/26/21 21:24 Dose: 100 mg Documented by: [id number] Ondansetron HCl (Ondansetron Inj 2 Mg/Ml 2 Ml Vial) 4 mg IV Q6H PRN PRN Reason: Nausea Stop: 06/25/21 14:38 Last Admin: 05/29/21 02:10 Dose: 4 mg Documented by: [id number] Pantoprazole Sodium (Pantoprazole 40 Mg Tab) 40 mg PO QAM [facility] Stop: 06/26/21 08:59 Last Admin: 05/28/21 07:59 Dose: 40 mg Documented by: [id number] Admin: 05/27/21 08:02 Dose: 40 mg Documented by: [id number] Potassium Chloride (Potassium Chloride 10 Meq Tabcr) 10 meq PO QAM [facility] Stop: 06/26/21 08:59 Last Admin: 05/28/21 07:58 Dose: 10 meq Documented by: [id number] Admin: 05/27/21 08:00 Dose: 10 meq Documented by: [id number] Sodium Chloride (Sodium Chloride 0.9% 10ml Flush) 10 ml IV DAILY [facility] Stop: 06/26/21 08:59 Last Admin: 05/28/21 08:00 Dose: Not Given Documented by: [id number] Admin: 05/27/21 08:02 Dose: 10 ml Documented by: [id number] Torsemide (Torsemide 20 Mg Tab) 40 mg PO QAM [facility] Stop: 06/26/21 08:59 Last Admin: 05/28/21 08:00 Dose: 40 mg Documented by: [id number] Admin: 05/27/21 08:01 Dose: 40 mg Documented by: [id number] Torsemide (Torsemide 20 Mg Tab) 20 mg PO TODAY@1400 [facility] Stop: 06/25/21 15:29 Last Admin: 05/28/21 14:34 Dose: 20 mg Documented by: [id number] Admin: 05/27/21 12:53 Dose: 20 mg Documented by: [id number] Admin: 05/26/21 15:34 Dose: 20 mg Documented by: [id number] Discontinued Medications Acetaminophen (Acetaminophen 325 Mg Tab) 650 mg PO NOW STA Stop: 05/26/21 10:53 Last Admin: 05/26/21 10:59 Dose: 650 mg Documented by: [id number] Amlodipine Besylate (Amlodipine Besylate 5 Mg Tab) 2.5 mg PO QAM [facility] Stop: 06/26/21 08:59 Last Admin: 05/28/21 07:58 Dose: 2.5 mg Documented by: [id number] Admin: 05/27/21 08:01 Dose: 2.5 mg Documented by: [id number] Gabapentin (Gabapentin 100 Mg Cap) 100 mg PO TIDM [facility] Stop: 06/25/21 16:59 Last Admin: 05/27/21 12:54 Dose: 100 mg Documented by: [id number] Admin: 05/27/21 08:00 Dose: 100 mg Documented by: [id number] Admin: 05/26/21 15:35 Dose: 100 mg Documented by: [id number] Sodium Chloride (Nss) 500 mls @ 999 mls/hr IV .Q31M [facility] Stop: 05/26/21 11:30 Last Infusion: 05/26/21 12:15 Dose: 0 mls/hr Documented by: [id number] Admin: 05/26/21 11:27 Dose: 999 mls/hr Documented by: [id number] Lorazepam (Ativan) 0.25 mg in 0.5 mls @ 0.5 mls/min IV NOW STA Stop: 05/28/21 11:43 Last Admin: 05/28/21 12:29 Dose: 0.5 mls/min Documented by: [id number] Insulin Aspart (Insulin Aspart Per Unit) 0 units SC [facility]; Protocol Stop: 05/26/21 17:16 Last Admin: 05/26/21 17:23 Dose: 21 units Documented by: [id number] Cosigned by: [id number] Insulin Aspart (Insulin Aspart Per Unit) 0 units SC 0000,0400 [facility]; Protocol Stop: 05/27/21 04:01 Last Admin: 05/27/21 04:05 Dose: 2 units Documented by: [id number] Cosigned by: [id number] Admin: 05/27/21 00:18 Dose: 6 units Documented by: [id number] Cosigned by: [id number] Insulin Glargine (Insulin Glargine Solostar 100 Units/Ml 3 Ml Pen) 40 units SC [facility]; Protocol Stop: 05/26/21 15:29 Last Admin: 05/26/21 15:41 Dose: 40 units Documented by: [id number] Cosigned by: [id number] Insulin Glargine (Insulin Glargine Solostar 100 Units/Ml 3 Ml Pen) 15 units SC DAILY [facility]; Protocol Stop: 05/27/21 09:01 Last Admin: 05/27/21 08:52 Dose: 15 units Documented by: [id number] Cosigned by: [id number] Insulin Glargine (Insulin Glargine Solostar 100 Units/Ml 3 Ml Pen) 10 units SC HS [facility]; Protocol Stop: 05/27/21 21:01 Last Admin: 05/27/21 21:59 Dose: 10 units Documented by: [id number] Cosigned by: [id number] Oxycodone HCl (Oxycodone Hcl Ir 5 Mg Tab (Immediate Release)) 5 mg PO NOW STA Stop: 05/29/21 01:10 Last Admin: 05/29/21 01:28 Dose: 5 mg Documented by: [id number] Description This is a 21 electrode EEG with a single channel dedicated to limited EKG. The electrodes were placed in accordance with the International 10-20 system. REPORT: On the on the of the EEG the patient is awake. The background is symmetric. The background predominantly consist of 6-7 Hz theta activity with superimposed fast frequencies in the frontal head region from myogenic artifact. There is frequent eye blink artifact and occasional movement artifact. No stage II sleep transients are seen. Photic simulation does not induce any abnormalities. Interpretation IMPRESSION: This is an abnormal awake and drowsy EEG due to generalized background slowing suggestive of a non specific encephalopathy. No epileptiform discharges are seen.
[2021-05-29 08:07] LABS: Basophils # (auto) 0.01 K/uL (0-0.2); Basophils % (auto) 0.1 %; Eosinophils # (auto) 0.07 K/uL (0-0.5); Hematocrit (blood only) 35.3 % (42-52); Hemoglobin 11.5 g/dL (14.0-18.0); Immature Granulocytes # (auto) 0.02 K/uL (0.00-0.02); Immature Granulocytes % (auto) 0.3 %; Lymphocytes # (auto) 0.84 K/uL (1.2-3.4); Lymphocytes % (auto) 11.7 %; Mean Corpuscular Hemoglobin 28.2 pg (25-34); Mean Corpuscular Hgb Conc 32.6 g/dL (32-36); Mean Corpuscular Volume 86.5 fL (80-100); Mean Platelet Volume 9.6 fL (7.4-10.4); Monocytes # (auto) 0.67 K/uL (0.11-0.59); Monocytes % (auto) 9.3 %; Neutrophils # (auto) 5.58 K/uL (1.4-6.5); Neutrophils % (auto) 77.6 %; Platelet Count 123 K/uL (130-400); RDW Coefficient of Variation 14.9 % (11.5-14.5); RDW Standard Deviation 46.6 fL (36.4-46.3); Red Blood Count 4.08 M/uL (4.7-6.1); White Blood Count 7.19 K/uL (4.8-10.8)
[2021-05-29 08:32] LABS: Albumin Globulin Ratio 1.3 (0.9-2); Albumin Level 3.6 gm/dl (3.4-5.0); BUN Creatinine Ratio 16.4 (10-20); Bilirubin,Total 0.8 mg/dl (0.2-1.0); Creatinine Clr Calc Pharmacy 25.5 ml/min; Est GFR (African American) 20.8 ml/min; Globulin 2.7 gm/dl (2.5-4.0); Potassium 3.7 mmol/L (3.5-5.1); Total Protein 6.3 gm/dl (6.0-8.3)
[2021-05-29] MEDS: POTASSIUM CHLORIDE 10 MEQ TABCR PO SCH ×2 (08:56→11:27)
[2021-05-29] MEDS: ISOSORBIDE DINITRATE 10 MG TAB PO SCH ×4 (08:56→16:43)
[2021-05-29] MEDS: amLODIPine BESYLATE 5 MG TAB PO SCH ×2 (08:56→11:26)
[2021-05-29] MEDS: TORSEMIDE 20 MG TAB PO SCH ×3 (08:57→14:37)
[2021-05-29] MEDS: ASPIRIN 81 MG ECTAB PO SCH ×2 (08:57→11:26)
[2021-05-29] MEDS: hydrALAZINE HCL 25 MG TAB PO SCH ×4 (08:57→21:39)
[2021-05-29] MEDS: APIXABAN 2.5 MG TAB PO SCH ×3 (08:58→21:38)
[2021-05-29] MEDS: METOPROLOL SUCC 50MG EXT REL TAB PO SCH ×3 (08:58→21:43)
[2021-05-29] MEDS: PANTOprazole 40 MG TAB PO SCH ×2 (08:58→11:27)
[2021-05-29] MEDS: INSULIN GLARGINE SOLOSTAR 100 UNITS/ML 3 ML PEN SC SCH ×2 (08:59→21:40)
[2021-05-29] MEDS: FLUTICASONE/VILANTEROL 100/25MCG 14 PUFFS/INHALER INH SCH ×2 (08:59→11:27)
[2021-05-29] MEDS: INSULIN ASPART PER UNIT SC SCH ×4 (09:06→21:40)
[2021-05-29] MEDS: SODIUM CHLORIDE 0.9% 10ML FLUSH IV SCH (09:08)
--- NOTE | 2021-05-29 12:00 | Hospitalist Progress Note ---
Date of Service May 29, 2021 Assessment & Plan (1) AMS (altered mental status): Plan: Most likely due to sedative effects of his baclofen+gabapentin+hydrocodone in setting of CKD stage 4 Mental status has markedly improved with holding of above medications B12, folate, ammonia, ABG unrevealing RPR still pending ESR elevated but with no evidence of headache/vision changes MRI brain shows encephalomalacia, evidence of prior stroke EEG shows encephalopathy Appreciate Neurology and Nephrology. Will need follow up with Neurology in 4-6 weeks (2) Acute hyperglycemia: Plan: see below (3) Poorly controlled diabetes mellitus: Plan: A1c of 10.1 in Mar 2021 Basal/bolus insulin per protocol while in-patient Glycemic consult placed BSG AC HS (4) CAD (coronary artery disease): Plan: Stable. Continue aspirin, statin, Toprol, Imdur (5) COPD (chronic obstructive pulmonary disease): Plan: Stable. Continue home inhalers (6) Atrial fibrillation: Plan: Controlled. Continue digoxin, Toprol, Eliquis for anticoagulation (7) Peripheral arterial disease: Plan: Continue aspirin, statin (8) Chronic systolic (congestive) heart failure: Plan: Appears compensated. 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 Undergoing tx at [facility] for past 5 weeks with sodium thiosulfate infusions M-F Open wound with eschar on RLE. Two wounds recently closed on LLE. Wound care nurse consulted (10) CKD (chronic kidney disease) stage 4, GFR 15-29 ml/min: Plan: Baseline creatinine ~3.5. Cr remains stable Follows with [facility] nephrology, will ask for Nephrology consult per Neuro recommendations Avoid nephrotoxic agents (11) Elevated troponin I level: Plan: Chronically elevated in setting of CKD IV, at baseline around 0.100 (12) ARPIT (obstructive sleep apnea): Plan: May use bipap from home with 2L O2 (13) Thrombocytopenia: Plan: Plt at baseline. Plan: DVT Ppx: Eliquis Labs Checked ROS-No Headache, No Visual Changes, No Nausea, No Vomiting, No Fever, No Chills, No Neck Pain or Stiffness, No Chest Pain, No Palpitations, No SOB, No TESFAYE, No Cough, No Sputum, No Wheezing, No Abdominal Pain, No Diarrhea, No Hematemesis, No Hemoptysis, No Unexpected Weight Loss, No Flank pain, No Melena, No Hematochezia, No Frequency, No Urgency, No Burning, No Hematuria, No Rashes, No Diaphoresis. Appetite is Normal Physical Exam Gen-AAO x 3, NAD, Afebrile, on BIPAP Head-NCAT, EOMI, PERRLA, Anicteric Sclera, No Posterior Pharyngeal Erythema Neck-Supple, No JVD, No Thyromegaly, No Masses, No LAD, No Bruits Lungs-Clear to Auscultation Bilaterally, No Rales, No Rhonchi, No Wheezing, No Crepitus Chest-No S4, +S1, +S2, No S3, No Murmurs, No Rubs, No Gallops, No Ectopy Abdomen-Soft, Bowel Sounds Present, Non Tender, Non Distended, No Hepatomegaly, No Splenomegaly, No Palpable Masses, No Rebound, No Rigidity, No Guarding Musculoskeletal-Full Range of Motion Bilaterally, No CVAT Extremities-No Cyanosis, No Clubbing, No Edema, Calf wound dressed Nuero-Cranial Nerves II-XII grossly intact, Motor WNL, DTRs WNL, Strength WNL, Non Focal Psych-Normal Mood Admission and Anticipated Discharge Date Admission Date: May 27, 2021 Subjective Awake and more pleasant today. is present at bedside. Results & Data Results & Data ([facility]) Vital Signs (Past 12 Hours) Vital Signs Temp Pulse Pulse Resp BP BP Pulse Ox 05/29/21 11:30 36.7 C 58 L 16 128/73 96 05/29/21 07:46 61 05/29/21 07:25 36.9 C 85 20 123/73 94 05/29/21 02:54 36.8 C 61 18 145/80 H 96 Laboratory Results Reviewed (1) AMS (altered mental status) Altered mental status type: unspecified Qualified Code(s): R41.82 - Altered mental status, unspecified (2) Atrial fibrillation Atrial fibrillation type: chronic Qualified Code(s): I48.2 - Chronic atrial fibrillation
--- NOTE | 2021-05-29 12:03 | Neurology Progress Note ---
Date of Service May 29, 2021 Assessment & Plan (1) AMS (altered mental status): Plan: 1. MRI no new stroke 2. EEG ordered - preliminary report encephalopathy no seizure focus 3. correct metabolic abnormalities 4. sedative medications -on hold- when restarting low dosing 5. home gabapentin dose appropriate for renal function at 100 mg TID 6. unclear if he took additional doses of pain medication but this is not typical behavior according to 7. TTE- severe aortic stenosis EF 40-45% 8. baclofen dosing should be addressed renal impairment <30 2.5 mg q 12 hours or avoid use. 9. recommend consulting nephrology 10. PT/OT recommendations will likely need rehab prior to return home will sign off for now will be available for questions concerns Admission and Anticipated Discharge Date Admission Date: May 27, 2021 Supervising Physician Co-Signing Physician Notes I have discussed above patient with Dr Roxann Palacios, neurology. Patient discussed with Roxann Eldridge. He is much improved. Impression resolving encephalopathy polyfactorial will sign off at present. 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 He was lethargic and difficult to wake up. He was leaning towards left side, felt lightheaded and "wobbly" but no focal weakness. Headache in back of head prior to arrival. He has a new tremor in BUE noted. He had a stroke 12/18/2019 but only residual deficit is occasional difficulty with word finding. He has been up to the bathroom with 2 person assist. He appears more oriented today. denies CP, SOB, abdominal pain, one sided weakness. when asked about the tremor he says he has had it for along time but it is bothering him more now. Review of Systems Review of Systems: All systems reviewed & are unremarkable except as noted in HPI & below Physical Exam Physical Exam: Physical Exam: Constitutional: appearance over nourished Ears, Nose, Mouth and Throat: mucous membranes moist, no injection and skin normal, eyes normal Cardiovascular: opening murmur Respiratory: course breath sounds Musculoskeletal: non pitting peripheral edema Skin: Left LE lesion acutely tender covered Eyes: extraocular muscles intact (EOMI) and pupils equal, round and reactive to light (PERRL) NEUROLOGIC EXAMINATION: Mental status: Alert and interactive Oriented to [facility], 2021, knows his address, [place] Oriented to person Speech fluent with no evidence of aphasia Cranial Nerves smile eye brow raise symmetric Sensory: intact cool and light touch Coordination: finger to nose fine reaching tremor bilaterally no resting tremor Gait/Stance: Posture sitting up in bedside chair Motor: Negative for pronator drift of out stretched arms with eyes closed. 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 hip flex 5/5 Results & Data ([facility]) Vital Signs (Past 12 Hours) Vital Signs Temp Pulse Pulse Resp BP BP Pulse Ox 05/29/21 11:30 36.7 C 58 L 16 128/73 96 05/29/21 07:46 61 05/29/21 07:25 36.9 C 85 20 123/73 94 05/29/21 02:54 36.8 C 61 18 145/80 H 96 Laboratory Results Abnormal lab results 05/28/21 05/28/21 05/29/21 Range/Units 16:42 20:25 02:21 RBC (4.7-6.1) M/uL Hgb (14.0-18.0) g/dL Hct (42-52) % RDW Std Deviation (36.4-46.3) fL RDW Coeff of Joey (11.5-14.5) % Plt Count (130-400) K/uL Lymph # (Auto) (1.2-3.4) K/uL [place] # (Auto) (0.11-0.59) K/uL BUN (6-23) mg/dl Creatinine (0.6-1.4) mg/dl Glucose (70-99(Fasting)) mg/dl POC Glucose 182 H 208 H 127 H (70-99) mg/dl 02/01/0905/29/21 05/29/21 Range/Units 07:42 07:53 07:53 RBC 4.08 L (4.7-6.1) M/uL Hgb 11.5 L (14.0-18.0) g/dL Hct 35.3 L (42-52) % RDW Std Deviation 46.6 H (36.4-46.3) fL RDW Coeff of Joey 14.9 H (11.5-14.5) % Plt Count 123 L (130-400) K/uL Lymph # (Auto) 0.84 L (1.2-3.4) K/uL [place] # (Auto) 0.67 H (0.11-0.59) K/uL BUN 55 H (6-23) mg/dl Creatinine 3.35 H D (0.6-1.4) mg/dl Glucose 180 H (70-99(Fasting)) mg/dl POC Glucose 174 H (70-99) mg/dl 05/29/21 Range/Units 11:32 RBC (4.7-6.1) M/uL Hgb (14.0-18.0) g/dL Hct (42-52) % RDW Std Deviation (36.4-46.3) fL RDW Coeff of Joey (11.5-14.5) % Plt Count (130-400) K/uL Lymph # (Auto) (1.2-3.4) K/uL [place] # (Auto) (0.11-0.59) K/uL BUN (6-23) mg/dl Creatinine (0.6-1.4) mg/dl Glucose (70-99(Fasting)) mg/dl POC Glucose 146 H (70-99) mg/dl Diagnostic Findings no new imaging (1) AMS (altered mental status) Altered mental status type: unspecified Qualified Code(s): R41.82 - Altered mental status, unspecified
[2021-05-29] MEDS: oxyCODONE HCL IR 5 MG TAB (IMMEDIATE RELEASE) PO PRN (12:23)
[2021-05-29] MEDS: DIGOXIN 0.125 MG TAB PO SCH (16:42)
--- NOTE | 2021-05-29 17:05 | Consultation Report ---
NEPHROLOGY CONSULTATION NOTE DATE OF SERVICE: 05/29/2021 REASON FOR CONSULTATION: CKD stage IV with metabolic encephalopathy. HISTORY OF PRESENT ILLNESS: The patient is a 66-year-old male with multiple medical problems includi ng CKD stage IV, with recent history of calciphylaxis as well as chronic systolic heart failure with an EF of 30%, status post ICD, significant peripheral vascular disease, history of stroke, atrial fib rillation, on Eliquis, severe aortic stenosis, as well as COPD and pulmonary hypertension and longsta nding type 2 diabetes. He presented to the hospital a few days ago with altered mental status. could not wake him up properly. The patient appeared lightheaded and wobbly, after which the patien t was brought to the hospital. The patient did take baclofen as well as a dose of [place] prior to hosp italization for pain. Since admission, his mental status has gradually improved. He has been closel y followed by neurology also. [facility], his baseline creatinine is in the mid 3s and that is where he is even now, so there has not been any acute worsening of his kidney function. His electrolytes a re also within acceptable range. He is making urine. Vital signs appear relatively stable at this t stefan. ALLERGIES: None. MEDICATIONS: Home medication list was reviewed in detail and is as per the reconciliation list and H and P. He does take torsemide 60 mg daily. His inpatient medication list was also reviewed in [facility]. He is getting torsemide 60 even as in hospital patient. 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 In fact, he is still getting sodium thiosulfate infusion and is scheduled for tomorrow. SOCIAL HISTORY: Heavy tobacco use. , lives with spouse. 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 No alcohol. FAMILY HISTORY: Negative for renal disease or dialysis. Positive for brothers and sister with diabe yancy. REVIEW OF SYSTEMS: Ten systems reviewed and otherwise negative. PHYSICAL EXAMINATION: GENERAL: Elderly white male who appears significantly older than his stated age and appears chronica lly ill. He is not confused at this time. He is awake, alert, oriented x3 and was able to give me a fairly detailed account of his medical history, even the complicated ones. VITAL SIGNS: Blood pressure 128/73, pulse rate 58, temperature 36.7, 96% on CPAP. HEENT: Mucous membranes are moist. NECK: Supple. No jugular venous distention. CHEST: Bilateral decreased breath sounds, occasional crackles and prolonged expiratory wheezing. CARDIOVASCULAR: S1 and S2 regular. ABDOMEN: Soft, nontender. EXTREMITIES: Show edema, but not much and he has bilateral chronic lesion on his leg, which is sandoval ged. Features of chronic venous stasis present. LABORATORY TEST: From this morning, sodium 138, potassium 3.7, BUN 55, creatinine 3.35. Hemoglobin 11.5, WBC count 7000, platelet count 123. Chest x-ray did not show any acute cardiopulmonary finding s. Brain MRI was also unremarkable. ASSESSMENT AND PLAN: A 66-year-old male with very extensive medical problem list including chronic k idney disease stage IV, baseline creatinine of 3.5, was admitted secondary to altered mental status, confusion and feeling unsteady. I have been consulted for chronic kidney disease and metabolic encep halopathy. Chronic kidney disease stage IV. He has a fairly advanced chronic kidney disease at baseline with a baseline creatinine around 3.5 secondary to longstanding diabetes as well as his very extensive list of medical problems. He is fairly close to needing dialysis, but as of now, has not needed. Also wo rth noting that the patient is still in the middle of the treatment for his calciphylaxis, for which he gets sodium thiosulfate at the IV infusion clinic. This drug is not formulary in the hospital and although not ideal, it is acceptable to miss while he is in the hospital. Continue the torsemide do se 60 daily. Continue his regular potassium. No further workup is needed from renal standpoint. As pointed out by neurology, the patient with chronic kidney disease is at high risk of toxic encephalop athy secondary to medical interactions. Baclofen and [place] can be associated with mental status dunaway ge and it appears the patient is gradually improving and is now pretty much back to baseline mental s tatus. He was able to give me a pretty detailed account of his complicated medical history. No furt her recommendation from renal standpoint and he can be followed in the outpatient nephrology clinic w jenna Mcdermott. Job ID: [id number]
[2021-05-29] MEDS: ATORVASTATIN 40 MG TAB PO SCH (21:39)
[2021-05-30] MEDS: ONDANSETRON INJ 2 MG/ML 2 ML VIAL IV PRN ×2 (03:24→11:23)
[2021-05-30] MEDS: oxyCODONE HCL IR 5 MG TAB (IMMEDIATE RELEASE) PO PRN (03:24)
[2021-05-30 07:23] LABS: Hematocrit (blood only) 34.8 % (42-52); Hemoglobin 11.2 g/dL (14.0-18.0); Mean Corpuscular Hemoglobin 27.9 pg (25-34); Mean Corpuscular Hgb Conc 32.2 g/dL (32-36); Mean Corpuscular Volume 86.6 fL (80-100); Mean Platelet Volume 9.9 fL (7.4-10.4); Platelet Count 124 K/uL (130-400); RDW Coefficient of Variation 14.7 % (11.5-14.5); RDW Standard Deviation 46.7 fL (36.4-46.3); Red Blood Count 4.02 M/uL (4.7-6.1); White Blood Count 7.42 K/uL (4.8-10.8)
[2021-05-30 07:49] LABS: Albumin Globulin Ratio 1.3 (0.9-2); Albumin Level 3.6 gm/dl (3.4-5.0); BUN Creatinine Ratio 16.2 (10-20); Bilirubin,Total 0.8 mg/dl (0.2-1.0); Creatinine Clr Calc Pharmacy 22.6 ml/min; Est GFR (African American) 18.1 ml/min; Est GFR (Non-African American) 15.6 ml/min; Globulin 2.8 gm/dl (2.5-4.0); Potassium 3.7 mmol/L (3.5-5.1); Total Protein 6.4 gm/dl (6.0-8.3)
[2021-05-30] MEDS: ISOSORBIDE DINITRATE 10 MG TAB PO SCH ×2 (08:00→11:59)
[2021-05-30] MEDS: ASPIRIN 81 MG ECTAB PO SCH (08:06)
[2021-05-30] MEDS: amLODIPine BESYLATE 5 MG TAB PO SCH (08:06)
[2021-05-30] MEDS: APIXABAN 2.5 MG TAB PO SCH (08:06)
[2021-05-30] MEDS: hydrALAZINE HCL 25 MG TAB PO SCH ×2 (08:07→15:25)
[2021-05-30] MEDS: FLUTICASONE/VILANTEROL 100/25MCG 14 PUFFS/INHALER INH SCH (08:07)
[2021-05-30] MEDS: METOPROLOL SUCC 50MG EXT REL TAB PO SCH (08:07)
[2021-05-30] MEDS: POTASSIUM CHLORIDE 10 MEQ TABCR PO SCH (08:09)
[2021-05-30] MEDS: PANTOprazole 40 MG TAB PO SCH (08:09)
[2021-05-30] MEDS: TORSEMIDE 20 MG TAB PO SCH ×2 (08:09→15:00)
[2021-05-30] MEDS: INSULIN ASPART PER UNIT SC SCH ×2 (08:11→11:59)
[2021-05-30] MEDS: SODIUM CHLORIDE 0.9% 10ML FLUSH IV SCH (08:13)
--- NOTE | 2021-05-30 08:13 | Pharmacy Report ---
Pharmacy Glycemic Short Note 2 - Date of Service May 30, 2021 - Glycemic Short BSG Results (Last 24 hours): 05/29/21 05/29/21 05/29/21 07:53 11:32 16:19 Glucose 180 H POC Glucose 146 H 189 H 05/29/21 05/30/21 05/30/21 19:59 06:47 07:32 Glucose 187 H POC Glucose 194 H 210 H OUTPATIENT ANTIDIABETIC REGIMEN: * Lantus 36 units SQ BID * Humalog 25 units SQ AC * HbA1c = 10.1% (04/12/21) ASSESSMENT: 05/30 * Fasting BSG 210mg/dl - increase Lantus slightly. All other blood sugars controlled or just above goal. No further changes at this time, CF already tightened down to 9 on Thursday and 8 on Thursday. 05/28 * Blood sugars all slightly elevated, but adequately controlled for this patient with A1c 10.1%, fasting 216mg/dl, will add over night check and tighten CF slightly. * No changes to basal as it was just adjusted yesterday and today. May need to increase if patient requiring correctional insulin overnight. 05/27 * BSGs much improved overnight, fasting BSG of 189 mg/dL this morning * Prior inpatient BSG data suggests Lantus 12 units SC BID + currently ordered NovoLog parameters are generally adequate, will plan to utilize this regimen again. Slightly higher Lantus dose this morning due to likely basal deficiency. * No new/obvious stressors identified 05/26 * 66 yo M admitted secondary to altered mental status. Pharmacy has been consulted to assist with inpatient glycemic management. Patient is well known to this service. Did not take any insulin this morning prior to admission and is ordered a T2DM. Known CKD with baseline SCr 3.4 mg/dL. * BSG in ED was 304 mg/dL and was 322 mg/dL upon transfer to floor. Will give a stat dose of Lantus now and begin Novolog based on previous admission data. Targeting a goal BSG of 110-140 mg/dL. * Will monitor BSGs throughout this evening and add a small scaled Lantus dose at HS, if needed. PLAN FOR INPATIENT GLYCEMIC CONTROL: * Basal insulin -increase * Lantus 14 units SC BID * Bolus insulin * NovoLog per scale ACHS or Q6hrs while NPO and overnight at 0200 * Goal Range: Low 110 mg/dL - High 140 mg/dL * Correction Factor: 8 mg/dL/unit * Nutritional / Prandial insulin per carb ratio of 1 unit per 2 grams CHO consumed PLAN FOR DISCHARGE: * A1c 10.1% * Likely would benefit from GLP-1 medication given PMHx of CVA/CAD if not contraindicated/affordable. * Possibly change basal to Toujeo/Toujeo Max for once daily basal dosing to help with adherence. * Usually follows with pharmacist thru [facility] in [place]; however, no show for last appointment on 04/24/21. Pharmacist has attempted to contact pt/left messages without return calls. Next appointment scheduled for 06/07 at 11:10am, pt aware.
[2021-05-30] MEDS ORDERED: INSULIN GLARGINE SOLOSTAR 100 UNITS/ML 3 ML PEN SC SCH (09:00)
--- NOTE | 2021-05-30 10:27 | Nephrology Progress Note ---
Date of Service May 30, 2021 Assessment & Plan Admission and Anticipated Discharge Date Admission Date: May 27, 2021 Subjective PHYSICAL EXAMINATION: GENERAL: Elderly white male who appears significantly older than his stated age and appears chronically ill. He is not confused at this time. He is awake, alert, oriented x3 and was able to give me a fairly detailed account of his medical history, even the complicated ones. VITAL SIGNS: Blood pressure 128/73, pulse rate 58, temperature 36.7, 96% on CPAP. HEENT: Mucous membranes are moist. NECK: Supple. No jugular venous distention. CHEST: Bilateral decreased breath sounds, occasional crackles and prolonged expiratory wheezing. CARDIOVASCULAR: S1 and S2 regular. ABDOMEN: Soft, nontender. EXTREMITIES: Show edema, but not much and he has bilateral chronic lesion on his leg, which is bandaged. Features of chronic venous stasis present. LABORATORY TEST: From this morning, Creat 3.7 ASSESSMENT AND PLAN: A 66-year-old male with very extensive medical problem list including chronic kidney disease stage IV, baseline creatinine of 3.5 ( 3--4) was admitted secondary to altered mental status, confusion and feeling unsteady. I have been consulted for chronic kidney disease and metabolic encephalopathy. Chronic kidney disease stage IV. He has a fairly advanced chronic kidney disease at baseline with a baseline creatinine around 3.5 secondary to longstanding diabetes as well as his very extensive list of medical problems. He is fairly close to needing dialysis, but as of now, has not needed. Also worth noting that the patient is still in the middle of the treatment for his calciphylaxis, for which he gets sodium thiosulfate at the IV infusion clinic. This drug is not formulary in the hospital and although not ideal, it is acceptable to miss while he is in the hospital. Continue the torsemide dose 60 daily. Continue his regular potassium. No further workup is needed from renal standpoint. As pointed out by neurology, the patient with chronic kidney disease is at high risk of toxic encephalopathy secondary to medical interactions. Baclofen and [place] can be associated with mental status change and it appears the patient is gradually improving and is now pretty much back to baseline mental status. He was able to give me a pretty detailed account of his complicated medical history. No further recommendation from renal standpoint and he can be followed in the outpatient nephrology clinic with Dr. Kathleen Mcdermott Creat up a bit from yesterday but still within the range of 3 to 4. NO changes needed today. Results & Data ([facility]) Vital Signs (Past 12 Hours) Vital Signs Temp Pulse Pulse Resp BP BP Pulse Ox 05/30/21 07:53 36.8 C 54 L 20 156/73 H 95 05/30/21 07:50 65 05/30/21 04:06 36.7 C 64 18 145/77 H 96 05/29/21 23:36 36.5 C 60 18 147/76 H 97
--- NOTE | 2021-05-30 14:41 | Discharge Summary ---
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 Last seen well around 0200 at bedtime last evening. This morning, patient was lethargic and difficult to wake up. noticed she was leaning towards left side. [place] lightheaded and "wobbly" but no focal weakness noted. Notes headache in back of head prior to arrival that is still present. Family notes new tremor in BUE noted at rest since yesterday. Did take baclofen and a dose of [place] yesterday for pain. States he uses these medications sparingly, usually 2-3x/week each. Does have history of stroke 1.5 years prior but only residual deficit is occasional difficulty with word finding. No fever, chills, CP, SOB, N/V, abdominal pain, dysuria, diarrhea or constipation. Admission Exam Per Admitting Provider GENERAL: Drowsy and oriented x3. NAD, on RA. occasionally seems forgetful and answers irrelevantly, confirmed by his . HEENT: No pallor, no icterus. Pupils equal, round and reactive to light. Oral mucosa moist. NECK: No JVD, no neck masses. HEART: S1 and S2 heard. Regular rate and rhythm. Systolic murmur over aortic and pulmonic area, no gallop. RESPIRATORY SYSTEM: Normal AP diameter. No accessory muscle use. No wheezing, no crackles. ABDOMEN: Soft, bowel sounds present, nontender, no distention. CENTRAL NERVOUS SYSTEM: No facial droop. Speech is clear. Obeys simple commands. Moves extremities. EXTREMITIES: No edema, no erythema seen. BLE chronic skin wounds --dry and improving. Principal Diagnosis PolyPharmacy Discharge Exam see below Discharge Data Allergies Allergy/AdvReac Type Severity Reaction Status Date / Time No Known Allergies Allergy Verified 04/24/21 11:06 Consultations 05/26/21 12:54 ED Decision to Admit Stat 05/26/21 14:39 Consult Neurology Routine 05/28/21 16:12 Consult Nephrology Routine Ordered Studies 05/26/21 10:52 CT head/brain wo con Stat 05/26/21 20:38 CT head/brain wo con Urgent 05/28/21 00:00 MR brain wo con Routine Hospital Course (1) AMS (altered mental status): Due to sedative effects of his baclofen+gabapentin+hydrocodone in setting of CKD stage 4 Mental status has markedly improved with holding of above medications B12, folate, ammonia, ABG unrevealing RPR still pending ESR elevated but with no evidence of headache/vision changes MRI brain shows encephalomalacia, evidence of prior stroke EEG shows encephalopathy Appreciate Neurology and Nephrology. Will need follow up with Neurology in 4-6 weeks (2) Acute hyperglycemia: see below (3) Poorly controlled diabetes mellitus: A1c of 10.1 in Mar 2021 Basal/bolus insulin per protocol while in-patient Glycemic consult placed BSG AC HS (4) CAD (coronary artery disease): Stable. Continue aspirin, statin, Toprol, Imdur (5) COPD (chronic obstructive pulmonary disease): Stable. Continue home inhalers (6) Atrial fibrillation: Controlled. Continue digoxin, Toprol, Eliquis for anticoagulation (7) Peripheral arterial disease: Continue aspirin, statin (8) Chronic systolic (congestive) heart failure: Appears compensated. TTE in 2020 with EF: 30%, severe aortic stenosis awaiting AV replacement , mild MR, LVH, moderate hypokinesis Continue Torsemide, I&Os, daily standing weights (9) Leg wound, right: History of calciphylaxis of lower extremity with non-healing ulcer. Undergoing tx at [facility] for past 5 weeks with sodium thiosulfate infusions M-F Open wound with eschar on RLE. Two wounds recently closed on LLE. Wound care nurse consulted (10) CKD (chronic kidney disease) stage 4, GFR 15-29 ml/min: Baseline creatinine ~3.5. Cr remains stable Follows with [facility] nephrology, will ask for Nephrology consult per Neuro recommendations Avoid nephrotoxic agents (11) Elevated troponin I level: Chronically elevated in setting of CKD IV, at baseline around 0.100 (12) ARPIT (obstructive sleep apnea): May use bipap from home with 2L O2 (13) Thrombocytopenia: Plt at baseline. DVT Ppx: Eliquis Labs Checked DC Home f/u c Wound care for legs ROS-No Headache, No Visual Changes, No Nausea, No Vomiting, No Fever, No Chills, No Neck Pain or Stiffness, No Chest Pain, No Palpitations, No SOB, No TESFAYE, No Cough, No Sputum, No Wheezing, No Abdominal Pain, No Diarrhea, No Hematemesis, No Hemoptysis, No Unexpected Weight Loss, No Flank pain, No Melena, No Hematochezia, No Frequency, No Urgency, No Burning, No Hematuria, No Rashes, No Diaphoresis. Appetite is Normal Physical Exam Gen-AAO x 3, NAD, Afebrile, on BIPAP Head-NCAT, EOMI, PERRLA, Anicteric Sclera, No Posterior Pharyngeal Erythema Neck-Supple, No JVD, No Thyromegaly, No Masses, No LAD, No Bruits Lungs-Clear to Auscultation Bilaterally, No Rales, No Rhonchi, No Wheezing, No Crepitus Chest-No S4, +S1, +S2, No S3, No Murmurs, No Rubs, No Gallops, No Ectopy Abdomen-Soft, Bowel Sounds Present, Non Tender, Non Distended, No Hepatomegaly, No Splenomegaly, No Palpable Masses, No Rebound, No Rigidity, No Guarding Musculoskeletal-Full Range of Motion Bilaterally, No CVAT Extremities-No Cyanosis, No Clubbing, No Edema, Calf wound dressed [place]-Cranial Nerves II-XII grossly intact, Motor WNL, DTRs WNL, Strength WNL, Non Focal Psych-Normal Mood Total Time Total Time Spent Total Time Spent (In Minutes): 45 mins Total Time Includes: Examination of the Patient, Discharge Planning, Medication Reconciliation and Communication With Other Providers Discharge Plan Discharge Items Patient Disposition: Home - Self-Care Reason For Visit: AMS Discharge Diagnosis: Polypharmacy Activity: Resume your previous activity Lifting: Gradually increase as tolerated Bathing: No limitations Sexual Activity: When tolerated Exercise/Sports: Gradually increase as tolerated Driving/Machine Use: No limitations Weightbearing: Full weightbearing Non-emergency contact: Primary Care Provider Call non-emergency contact if: you have any medication questions Follow-up/Referrals: Kathleen Bosch MD, PhD [Physician] - (Date & Time 06/10/2021 12:40 PM Provider Kathleen Bosch MD Department Nephrology 2nd Floor, [place] ) Mirlande Melton MD [Primary Care Provider] - Diet: Carb Consistent or DM2 and Heart Healthy Addtl Attending Provider Instructions: Follow up with wound care team Pending Studies at Discharge: No Stand-Alone Forms: My [facility] [place], Smoking Cessation Medications and DC Order Prescriptions: New amlodipine [Norvasc] 5 mg Tablet 5 mg PO QAM Qty: 30 RF: 0 oxycodone 5 mg Tablet 5 mg PO Q6H PRN (Reason: pain) Qty: 15 RF: 0 Continued Lantus Solostar U-100 Insulin 100 unit/mL (3 mL) insulin pen 36 unit SUBCUT BID RF: 0 apixaban 2.5 mg tablet 2.5 mg PO BID RF: 0 aspirin 81 mg Tablet,Delayed Release (Dr/Ec) 81 mg PO QAM RF: 0 pantoprazole [Protonix] 40 mg Tablet,Delayed Release (Dr/Ec) 40 mg PO QAM RF: 0 Breo Ellipta 100-25 mcg/dose Blister With Device 1 inh INHALATION QAM RF: 0 gabapentin 100 mg Capsule 100 mg PO TIDM RF: 0 ipratropium-albuterol 0.5 mg-3 mg(2.5 mg base)/3 mL Solution For Nebulization 3 ml INHALATION QID PRN (Reason: Shortness Of Breath Or Wheezing) RF: 0 albuterol sulfate [ProAir HFA] 90 mcg/actuation Hfa Aerosol Inhaler 2 puff INHALATION Q4H PRN (Reason: Shortness Of Breath Or Wheezing) RF: 0 fluticasone propionate [Flonase Allergy Relief] 50 mcg/actuation [place],Suspension 2 spray INTRANASAL DAILY PRN (Reason: Nasal Congestion) RF: 0 insulin lispro [Humalog KwikPen Insulin] 100 unit/mL insulin pen 25 unit subcut WM RF: 0 atorvastatin 80 mg tablet 80 mg PO QPM RF: 0 digoxin 125 mcg (0.125 mg) tablet 125 mcg PO DAILY RF: 0 torsemide 20 mg tablet 60 mg PO UD RF: 0 isosorbide dinitrate 10 mg tablet 10 mg PO TID RF: 0 sodium chloride 0.9 % (flush) [Normal Saline Flush] Syringe 10 ml IV DAILY RF: 0 metoprolol succinate [Toprol XL] 100 mg Tablet Extended Release 24 Hr 100 mg PO BID Qty: 60 RF: 1 hydralazine 25 mg tablet 75 mg PO TID RF: 0 potassium chloride [Klor-Con M10] 10 mEq tablet,ER particles/crystals 10 meq PO QAM RF: 0 Discontinued amlodipine 2.5 mg tablet 2.5 mg PO QAM RF: 0 baclofen 10 mg tablet 10 mg PO HS PRN (Reason: Cramps) RF: 0 hydrocodone-acetaminophen 5-325 mg tablet 1 tab PO Q4H PRN (Reason: Pain) RF: 0 Discharge Orders: Discharge Order (Routine); Ordered 05/30/21 Ordered By: Richard Newman Admission Data Admit Date/Time: 05/27/21 15:36 Attending Provider: Richard Newman Admit Provider: Zoey Rubin Primary Care Provider: Mirlande Melton Other Providers: Zoey Rubin ; Roxann Palacios ; Moses Ramos
== END 2021-05-30 15:30 | disposition home health service (06) | DRG 917 ==
LOC: 2N 10:20 → ED 10:20 → 2N 14:24 → SUATTDRO 05-27 15:36

== ENCOUNTER 2021-07-08 15:41 | Inpatient (IN) ==
[2021-07-08] MEDS ORDERED: SODIUM CHLORIDE 0.9% 1000ML 500 ML IV ONE (15:49)
[2021-07-08] MEDS ORDERED: AMIODARONE / D5W 150 MG/100 ML BAG IV STA (15:50)
--- NOTE | 2021-07-08 15:59 | Emergency Department Note ---
Impression & Plan Ventricular tachycardia by electrocardiography, Dizziness, CKD (chronic kidney disease) ED Provider Note NAME: NIRANJAN VILLALTA AGE: 66 SEX: M : 1955 ARRIVES VIA: Ambulance INFORMANT: Patient, ED PROVIDER(S): Hai Miller MD Chief Complaint: Dizziness, possible V. tach HPI: Patient presents from home due to concern for some dizziness lightheadedness and dizziness. I did receive a medical command call due to concern for episodes of ventricular tachycardia. Patient states that he had felt lightheaded and dizzy this morning. The patient reportedly has been having some bouts of nausea and vomiting. The patient does have a PICC line for chronic treatment of wounds but they have been making him ill sleep stop. Patient denies any fevers or chills. Patient denies any current chest pain shortness of breath nausea or vomiting at this time but did feel unwell prior to arrival. Patient did not receive any medications. Patient denies any recent changes in medications and states that he is compliant. The patient does chew tobacco but denies any alcohol use patient most recently had an echocardiogram completed in May 2021 where the patient did have mild dilated left ventricle with moderate concentric left ventricular hypertrophy with mild reduction in ejection fraction at 40 to 45%. Patient does have severe valvular aortic stenosis. Left atrium and right atrium are moderately dilated with mild mitral regurg. Right ventricular systolic function is normal. ROS: See HPI for pertinent positives and negatives. A total of 10 systems were reviewed and otherwise negative. Past medical history: See below Surgical history: See below Social history: See below Physical Exam: GENERAL: NAD, wearing glasses, wearing a mask, non-toxic. EYE EXAM: Normal conjunctiva. PERRL, no anisocoria and EOM's grossly intact w/o pain. NECK: Supple, no nuchal rigidity, no adenopathy, non-tender. No signs of meningismus. FROM of the neck with good chin to chest and neck extension. No stridor. LUNGS: Clear to auscultation. Normal chest wall mechanics. HEART: NSR, no MRG. ABDOMEN: Abdomen soft, non-tender, normo-active bowel sounds, no masses, no rebound or guarding. BACK: No CVA TTP. SKIN: No rashes and no bruising. UPPER EXTREMITIES: Upper extremities are grossly normal. LOWER EXTREMITIES: Grossly normal, no edema. NEURO EXAM: A&O x3, cranial nerves II-XII grossly intact, normal speech, moves all 4 extremities on command w/o issue. Good finger to nose, no drift, no sensory deficits. Differential diagnoses: Benign positional vertigo, dehydration, hypovolemia, anemia, tumor, infection, hypoglycemia, electrolyte abnormalities, cardiac sources, intracerebral event, toxicologic, neurologic, as well as other pathologies. Course: Patient was seen and evaluated the bedside. Full history physical exam was performed. EKG interpreted by me V paced rhythm, rate of 74, wide QRS, prolonged QTC, slight depression in V3. Imaging Studies: See Below Cardiac monitoring: An order was placed for continuous cardiac monitoring. The monitor shows a rate of with rhythm. MDM: Patient presented due to concern for possible V. tach and dizziness. Patient does have a pacemaker in place [facility] I did aspirate has been placed did speak with pharmacy to initiate amiodarone bolus and drip. I did review the in route EKG which did show a likely 16 beat episode of V. tach at approximately 150 bpm. Patient did have blood work completed and was given a small amount of IV fluids as patient has been having some vomiting and appears dry on exam. Pacemaker was to be interrogated. Pads were placed on the patient. Patient is a normal white count with mild anemia 12.5. The patient's platelet count is unremarkable. Kidney function with a creatinine 3.48. The patient did have elevated glucose but normal electrolytes. Patient's dig level is normal. Dr. Sethi did evaluate the patient he agrees with giving him fluid trial given the patient's vomiting and weight loss. He also agreed with the amiodarone to be continued. I did speak with the on-call hospitalist NAMRATA Culver and the patient was admitted by Dr. Marquez. Critical Care: I have personally spent 57 minutes of critical care time in direct management of this patient. This includes bedside care, interpretation of diagnostic studies, and testing, discussion with consultants, patient, and family members, and other require inpatient management activities. This 57 minutes is in excess of all separately billable procedures. Past Med/Surg History Medical History Aortic stenosis Severe aortic stenosis vs pseudo aortic stenosis due to low output per cardio note from 12/2019 ECHO Asthma Atrial fibrillation on warfarin CAD (coronary artery disease) "nonobstructive" Chronic anemia Chronic kidney disease Stage 4, under surveillance by Dr. Mcdermott (no dialysis at this time) Chronic systolic (congestive) heart failure COPD (chronic obstructive pulmonary disease) Diabetic neuropathy DM type 2 (diabetes mellitus, type 2) IDDM Dyslipidemia Gall stones GERD (gastroesophageal reflux disease) History of COVID-19 Dx 08/05/20(hospitalized at [facility]) > symptoms at time of cough, SOB, generalized weakness, n/v/d, loss of taste/smell > "resolved" History of multiple pulmonary nodules Hypertension LBBB (left bundle branch block) Nonischemic cardiomyopathy S/p BIV AICD in place; follows with Dr. Graves Presence of combination internal cardiac defibrillator (ICD) and pacemaker Implanted 5+ years ago, [employer], last check 07/2020 Pulmonary HTN PVD (peripheral vascular disease) Sleep apnea + nocturnal hypoxia > BIPAP + 2L O2 HS Stroke 11/2019 > residual speech difficulty/short term memory issues Surgical History H/O cardiac catheterization Non nonobstructive CAD on 2016 cardiac cath H/O total adrenalectomy Left (25 years ago) History of colonoscopy History of esophagogastroduodenoscopy (EGD) S/P debridement (01/08/21) Left Lower Extremity Medial and Lateral excisional Debridement ( greater than 20 sq. cm and Biopsy( both wounds)) - Ignacio Chisholm, DO 01/08/21 Family History Sister Diabetes Brother Diabetes Other Hypertension Lung cancer Social History Smoking Status: Heavy tobacco smoker Tobacco Type: Smokeless Tobacco (Dip or Chew) Second Hand Exposure: No; Do You Dip or Chew Tobacco: Yes; Tobacco Cessation Education Requested by Patient: No Hx Alcohol Use: No Hx Substance Use: No Preferred Language: Macanese Communication Ability: Effective Visual Impairment: Limited Set O Type Operator Required: No Beliefs That Will Affect Care: None marital status: Current Living Situation: Spouse current occupational status: retired 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 Other Information That Helps Us Care for You: No Feels Safe at Home: Yes Safety Concerns: Feels Safe At This Time Assistive Devices: CPAP, Glasses and Oxygen - at Night Allergies Allergies Allergy/AdvReac Type Severity Reaction Status Date / Time prednisone AdvReac Severe BSG'S OVER Verified 07/08/21 16:52 400-CONFUSION, DISORIENTED Home Meds Home Medications Medication Instructions Recorded Confirmed aspirin 81 mg tablet,delayed 81 mg PO QAM 02/05/18 07/08/21 release pantoprazole 40 mg tablet,delayed 40 mg PO QAM 02/05/18 07/08/21 release (Protonix) albuterol sulfate 90 mcg/actuation 2 puff INHALATION Q4H PRN 08/01/18 07/08/21 aerosol inhaler (ProAir HFA) fluticasone propionate 50 2 spray INTRANASAL DAILY PRN 08/01/18 07/08/21 mcg/actuation nasal spray,suspension (Flonase Allergy Relief) ipratropium 0.5 mg-albuterol 3 mg 3 ml INHALATION QID PRN 08/01/18 07/08/21 (2.5 mg base)/3 mL nebulization soln fluticasone furoate 100 1 inh INHALATION QAM 03/02/20 07/08/21 mcg-vilanterol 25 mcg/dose inhalation powder (Breo Ellipta) atorvastatin 80 mg tablet 80 mg PO QPM 09/17/20 07/08/21 insulin glargine 100 unit/mL (3 40 unit SUBCUT DAILY ml 01/17/21 07/08/21 mL) subcutaneous pen (Lantus Solostar U-100 Insulin) insulin lispro 100 unit/mL 0 sliding scale dose SUBCUT TIDM 01/17/21 07/08/21 subcutaneous pen (Humalog KwikPen (U-100) Insulin) apixaban 2.5 mg tablet 2.5 mg PO BID 03/01/21 07/08/21 hydralazine 25 mg tablet 75 mg PO TID 04/07/21 07/08/21 digoxin 125 mcg (0.125 mg) tablet 125 mcg PO DAILY 04/24/21 07/08/21 isosorbide dinitrate 10 mg tablet 10 mg PO TID 04/24/21 07/08/21 torsemide 20 mg tablet See Rx Instructions .ROUTE .COMPLEX 04/24/21 07/08/21 sodium chloride 0.9 % (flush) 10 ml IV DAILY 05/26/21 07/08/21 (Normal Saline Flush) acetaminophen 500 mg tablet 500 - 1,000 mg PO DIRECTED PRN 07/03/21 07/08/21 (Tylenol Extra Strength) docusate sodium 100 mg capsule 100 mg PO BID PRN 07/03/21 07/08/21 fluticasone 500 mcg-salmeterol 50 1 inh INHALATION Q12H 07/03/21 07/08/21 mcg/dose blistr powdr for inhalation (Advair Diskus) oxycodone 10 mg tablet,crush 10 mg PO BID 07/03/21 07/08/21 resistant,extended release 12 hr (OxyContin) potassium chloride 20 mEq 20 meq PO DAILY 07/03/21 07/08/21 tablet,extended release promethazine 6.25 mg/5 mL oral 6.25 mg PO Q6H PRN 07/03/21 07/08/21 syrup sennosides 8.6 mg tablet (Senna 8.6 - 17.2 mg PO BID PRN 07/03/21 07/08/21 Laxative) insulin glargine 100 unit/mL (3 35 unit SUBCUT HS 07/08/21 07/08/21 mL) subcutaneous pen (Lantus Solostar U-100 Insulin) oxycodone 5 mg tablet 5 mg PO Q4H PRN 07/08/21 07/08/21 Previous Rx's Medication Instructions Recorded metoprolol succinate 100 mg 100 mg PO BID #60 tab 08/14/20 tablet,extended release 24 hr (Toprol XL) amlodipine 5 mg tablet (Norvasc) 5 mg PO QAM #30 tab 05/30/21 Results & Data (ED) Vital Signs Vital Signs - 24 hr 07/08/21 15:49 07/08/21 16:16 07/08/21 16:30 Pulse Rate 72 69 72 Pulse Rate [Apical] Pulse Rhythm [Apical] Respiratory Rate 16 20 20 Blood Pressure 115/71 115/78 141/82 H Blood Pressure [Left Arm] Blood Pressure Mean 85 90 101 Blood Pressure Mean [Left Arm] Pulse Oximetry 96 98 99 Oxygen Delivery Method Room Air Sepsis Recent Fever Within 48 Hours No Sepsis New/Unexplained Change in Mental Status N/A Sepsis Action Taken by Nursing No Action Required 07/08/21 16:45 07/08/21 17:00 07/08/21 17:03 Pulse Rate 64 62 Pulse Rate [Apical] 70 Pulse Rhythm [Apical] Regular Respiratory Rate 18 16 18 Blood Pressure 128/73 137/76 Blood Pressure [Left Arm] 137/76 Blood Pressure Mean 91 96 Blood Pressure Mean [Left Arm] 96 Pulse Oximetry 98 98 98 Oxygen Delivery Method Room Air Sepsis Recent Fever Within 48 Hours Sepsis New/Unexplained Change in Mental Status Sepsis Action Taken by Nursing 07/08/21 17:15 Pulse Rate 62 Pulse Rate [Apical] Pulse Rhythm [Apical] Respiratory Rate 18 Blood Pressure 147/83 H Blood Pressure [Left Arm] Blood Pressure Mean 104 Blood Pressure Mean [Left Arm] Pulse Oximetry 99 Oxygen Delivery Method Sepsis Recent Fever Within 48 Hours Sepsis New/Unexplained Change in Mental Status Sepsis Action Taken by Jail Medications Current Medication List: was personally reviewed by me Laboratory Data Attestation: I reviewed the patient's lab results. Result diagrams: 07/08/21 15:15 07/08/21 15:15 Lab Results 07/08/21 07/08/21 07/08/21 Range/Units 15:15 15:15 15:15 WBC 8.51 (4.8-10.8) K/uL RBC 4.47 L (4.7-6.1) M/uL Hgb 12.5 L (14.0-18.0) g/dL Hct 38.0 L (42-52) % MCV 85.0 (80-100) fL MCH 28.0 (25-34) pg MCHC 32.9 (32-36) g/dL RDW Std Deviation 43.8 (36.4-46.3) fL RDW Coeff of Joey 14.0 (11.5-14.5) % Plt Count 181 (130-400) K/uL MPV 10.2 (7.4-10.4) fL Immature Gran % (Auto) 0.2 % Neut % (Auto) 79.5 % Lymph % (Auto) 12.1 % [place] % (Auto) 5.4 % Eos % (Auto) 2.4 % Baso % (Auto) 0.4 % Neut # (Auto) 6.77 H (1.4-6.5) K/uL Lymph # (Auto) 1.03 L (1.2-3.4) K/uL [place] # (Auto) 0.46 (0.11-0.59) K/uL Eos # (Auto) 0.20 (0-0.5) K/uL Baso # (Auto) 0.03 (0-0.2) K/uL Immature Gran # (Auto) 0.02 (0.00-0.02) K/uL Sodium 139 (136-145) mmol/L Potassium 3.8 (3.5-5.1) mmol/L Chloride 100 (98-107) mmol/L Carbon Dioxide 28 (21-32) mmol/L Anion Gap 11 (3-11) BUN 57 H (6-23) mg/dl Creatinine 3.48 H (0.6-1.4) mg/dl Est Cr Clr Drug Dosing Not Reportable Est GFR ( Amer) 19.9 ml/min Est GFR (Non-Af Amer) 17.2 ml/min BUN/Creatinine Ratio 16.4 (10-20) Glucose 181 H (70-99(Fasting)) mg/dl Calcium 9.7 (8.5-10.1) mg/dl Phosphorus 3.3 (2.5-4.9) mg/dl Magnesium 2.0 (1.7-2.4) mg/dl Total Bilirubin 0.8 (0.2-1.0) mg/dl AST 24 (13-39) U/L ALT 32 (7-52) U/L Alkaline Phosphatase 173 H (34-104) U/L Total Protein 7.3 (6.0-8.3) gm/dl Albumin 3.9 (3.4-5.0) gm/dl Globulin 3.4 (2.5-4.0) gm/dl Albumin/Globulin Ratio 1.1 (0.9-2) TSH 4.895 H (0.300-4.500) uIu/ml Free T4 0.89 (0.61-1.60) ng/dl Digoxin (0.8-2.0) ng/ml SARS-CoV-2, RNA, NAAT (NEGATIVE) 07/08/21 07/08/21 Range/Units 15:15 16:06 WBC (4.8-10.8) K/uL RBC (4.7-6.1) M/uL Hgb (14.0-18.0) g/dL Hct (42-52) % MCV (80-100) fL MCH (25-34) pg MCHC (32-36) g/dL RDW Std Deviation (36.4-46.3) fL RDW Coeff of Joey (11.5-14.5) % Plt Count (130-400) K/uL MPV (7.4-10.4) fL Immature Gran % (Auto) % Neut % (Auto) % Lymph % (Auto) % [place] % (Auto) % Eos % (Auto) % Baso % (Auto) % Neut # (Auto) (1.4-6.5) K/uL Lymph # (Auto) (1.2-3.4) K/uL [place] # (Auto) (0.11-0.59) K/uL Eos # (Auto) (0-0.5) K/uL Baso # (Auto) (0-0.2) K/uL Immature Gran # (Auto) (0.00-0.02) K/uL Sodium (136-145) mmol/L Potassium (3.5-5.1) mmol/L Chloride (98-107) mmol/L Carbon Dioxide (21-32) mmol/L Anion Gap (3-11) BUN (6-23) mg/dl Creatinine (0.6-1.4) mg/dl Est Cr Clr Drug Dosing Est GFR ( Amer) ml/min Est GFR (Non-Af Amer) ml/min BUN/Creatinine Ratio (10-20) Glucose (70-99(Fasting)) mg/dl Calcium (8.5-10.1) mg/dl Phosphorus (2.5-4.9) mg/dl Magnesium (1.7-2.4) mg/dl Total Bilirubin (0.2-1.0) mg/dl AST (13-39) U/L ALT (7-52) U/L Alkaline Phosphatase (34-104) U/L Total Protein (6.0-8.3) gm/dl Albumin (3.4-5.0) gm/dl Globulin (2.5-4.0) gm/dl Albumin/Globulin Ratio (0.9-2) TSH (0.300-4.500) uIu/ml Free T4 (0.61-1.60) ng/dl Digoxin 1.6 (0.8-2.0) ng/ml SARS-CoV-2, RNA, NAAT NEGATIVE (NEGATIVE) Administered Medications Apixaban (Apixaban 2.5 Mg Tab) 2.5 mg PO BID ALYSIA Stop: 08/07/21 20:59 Last Admin: 07/08/21 21:30 Dose: 2.5 mg Documented by: [id number] Atorvastatin Calcium (Atorvastatin 40 Mg Tab) 80 mg PO QPM ALYSIA Stop: 08/07/21 20:59 Last Admin: 07/08/21 21:31 Dose: 80 mg Documented by: [id number] Amiodarone HCl/Dextrose (Nexterone / D5w) 360 mg in 200 mls @ 16.667 mls/hr IV .Q12H ALYSIA Stop: 08/07/21 21:59 Last Admin: 07/08/21 21:33 Dose: 0.5 mg/min, 16.7 mls/hr Documented by: [id number] Cosigned by: [id number] Insulin Aspart (Insulin Aspart Per Unit) 0 units SC ACHS ALYSIA Stop: 08/07/21 20:59 Last Admin: 07/08/21 21:31 Dose: 6 units Documented by: [id number] Cosigned by: [id number] Metoprolol Succinate (Metoprolol Succ 50mg Ext Rel Tab) 100 mg PO BID ALYSIA Stop: 08/07/21 20:59 Last Admin: 07/08/21 21:32 Dose: 100 mg Documented by: [id number] Oxycodone HCl (Oxycodone Hcl 10 Mg Tabcr (Oxycontin)) 10 mg PO BID ALYSIA Stop: 07/22/21 20:59 Last Admin: 07/08/21 21:32 Dose: 10 mg Documented by: [id number] Discontinued Medications Amiodarone HCl/Dextrose (Nexterone / D5w) 150 mg in 100 mls @ 600 mls/hr IV NOW STA Stop: 07/08/21 15:59 Last Infusion: 07/08/21 16:15 Dose: 0 mls/hr Documented by: [id number] Cosigned by: [id number] Admin: 07/08/21 15:56 Dose: 600 mls/hr Documented by: [id number] Cosigned by: [id number] Amiodarone HCl/Dextrose (Nexterone / D5w) 360 mg in 200 mls @ 33.333 mls/hr IV .Q6H ALYSIA Stop: 07/08/21 21:59 Last Infusion: 07/08/21 21:34 Dose: 0 mg/min, 0 mls/hr Documented by: [id number] Cosigned by: [id number] Admin: 07/08/21 16:15 Dose: 1 mg/min, 33.3 mls/hr Documented by: [id number] Cosigned by: [id number] Sodium Chloride (Nss 1000ml) 500 mls @ 999 mls/hr IV .Q31M ONE Stop: 07/08/21 16:19 Last Infusion: 07/08/21 16:15 Dose: 0 mls/hr Documented by: [id number] Admin: 07/08/21 16:14 Dose: 999 mls/hr Documented by: [id number] Insulin Glargine (Insulin Glargine Solostar 100 Units/Ml 3 Ml Pen) 20 units SQ HS ONE Stop: 07/08/21 21:01 Last Admin: 07/08/21 21:32 Dose: 20 units Documented by: [id number] Cosigned by: [id number] Imaging Data Radiologist's Impression: Chest X-Ray 07/08/21 15:49 XR chest 1V portable CLINICAL HISTORY: weakness TECHNIQUE: Single frontal radiograph of the chest was obtained. Comparison: Comparison is made to chest one view 07/03/2021 FINDINGS: Pacemaker defibrillator is seen. Cardiomegaly is noted. The lungs are clear. No evidence of pleural effusion or pneumothorax. IMPRESSION: No acute chest disease. ACT 112: Negative or not required by law. Electronically signed by: Edilberto Stearns M.D. 07/08/2021 4:18 PM Discharge Plan Visit Data Chief Complaint: Hypotension ED Provider: Hai Miller Discharge Problem: Ventricular tachycardia by electrocardiography, Dizziness, CKD (chronic kidney disease) Patient Disposition: Admitted As Inpatient Discharge Instructions Interventions: ED Discharge Assessment Last Done: 07/08/21 18:35
[2021-07-08] MEDS ORDERED: AMIODARONE / D5W 360 MG/200 ML BAG IV SCH ×2 (16:00→22:00)
--- NOTE | 2021-07-08 16:20 | XRay Report ---
XR chest 1V portable CLINICAL HISTORY: weakness TECHNIQUE: Single frontal radiograph of the chest was obtained. Comparison: Comparison is made to chest one view 07/03/2021 FINDINGS: Pacemaker defibrillator is seen. Cardiomegaly is noted. The lungs are clear. No evidence of pleural e ffusion or pneumothorax. IMPRESSION: No acute chest disease. ACT 112: Negative or not required by law. Electronically signed by: Edilberto Stearns M.D. 07/08/2021 4:18 PM
[2021-07-08 16:22] LABS: Basophils # (auto) 0.03 K/uL (0-0.2); Basophils % (auto) 0.4 %; Eosinophils % (auto) 2.4 %; Hemoglobin 12.5 g/dL (14.0-18.0); Immature Granulocytes # (auto) 0.02 K/uL (0.00-0.02); Immature Granulocytes % (auto) 0.2 %; Lymphocytes # (auto) 1.03 K/uL (1.2-3.4); Lymphocytes % (auto) 12.1 %; Mean Corpuscular Hgb Conc 32.9 g/dL (32-36); Mean Platelet Volume 10.2 fL (7.4-10.4); Monocytes # (auto) 0.46 K/uL (0.11-0.59); Monocytes % (auto) 5.4 %; Neutrophils # (auto) 6.77 K/uL (1.4-6.5); Neutrophils % (auto) 79.5 %; Platelet Count 181 K/uL (130-400); RDW Standard Deviation 43.8 fL (36.4-46.3); Red Blood Count 4.47 M/uL (4.7-6.1); White Blood Count 8.51 K/uL (4.8-10.8)
[2021-07-08 16:45] LABS: Alanine Aminotransferase 32 U/L (7-52); Albumin Globulin Ratio 1.1 (0.9-2); Albumin Level 3.9 gm/dl (3.4-5.0); Alkaline Phosphatase 173 U/L (34-104); Anion Gap 11 (3-11); Aspartate Aminotransferase 24 U/L (13-39); BUN Creatinine Ratio 16.4 (10-20); Bilirubin,Total 0.8 mg/dl (0.2-1.0); Blood Urea Nitrogen 57 mg/dl (6-23); Calcium 9.7 mg/dl (8.5-10.1); Carbon Dioxide 28 mmol/L (21-32); Chloride 100 mmol/L (98-107); Est GFR (African American) 19.9 ml/min; Est GFR (Non-African American) 17.2 ml/min; Globulin 3.4 gm/dl (2.5-4.0); Glucose 181 mg/dl (70-99(Fasting)); Phosphorus 3.3 mg/dl (2.5-4.9); Potassium 3.8 mmol/L (3.5-5.1); Sodium 139 mmol/L (136-145); Total Protein 7.3 gm/dl (6.0-8.3)
--- NOTE | 2021-07-08 16:52 | Cardiology Consultation ---
Date of Consultation July 08, 2021 Assessment & Plan (1) Acute hypotension: (2) Chronic systolic (congestive) heart failure: (3) NSVT (nonsustained ventricular tachycardia): (4) Aortic stenosis: -The patient's most recent transthoracic echocardiogram took place at [facility] on 04/10/2021 with findings of moderate concentric left ventricular hypertrophy, apical wall motion abnormality consistent with pacemaker activation, borderline global left ventricular hypokinesis, LVEF mildly reduced 45 to 50%, severe aortic valve calcification noted, with findings consistent with severe aortic valve stenosis, moderate mitral annular calcification, mild mitral regurgitation, mild to moderate TR. At the time the patient's recent hospitalization last month May,, he was followed by nephrology, and discharged on a dose of torsemide 60 mg daily. Management of his diuretic and antihypertensive therapy has been challenging with regards to admissions with hypertensive urgency, and also what appears to be orthostatic hypotension in the setting of stage IV chronic kidney disease Baseline creatinine appears to be in the range of 3-3.5 mg/dL. Renal function today appears relatively stable, potassium 3.8, within normal limits. For now recommend holding his torsemide, continue IV amiodarone, and administering gentle IV fluids. Recommend admission, [facility], [facility]/telemetry. Case discussed with Dr Miller. Further recommendations be forthcoming tomorrow. History of Present Illness History of Present Illness Mr Delarosa is a 66 year old male well known to our cardiology service who is seen in consultation per the request of Dr Miller of Emergency Medicine for the evaluation of dizziness and episodes of nonsustained ventricular tachycardia. Patient seen in ED room B8B. Asymptomatic at the time of my evaluation. Spouse at bedside, an amiodarone infusion is being administered. Patient describes several weeks of progressive lightheadedness and dizziness. He had been seen by primary care on 07/03/2021 and was felt to be hypotensive and was referred to the emergency room. Blood pressure improved by the time he arrived. Today he felt ongoing symptoms of worsening lightheadedness, dizziness especially when he stands up from his chair. EMS found him to have a blood pressure of 70/40. Rhythm strips were obtained by EMS at 1531 revealing a 7 beat run of wide-complex tachycardia and then a 16 beat run of wide-complex tachycardia consistent with nonsustained ventricular tachycardia, with spontaneous offset to the patient's underlying ventricular paced rhythm. He had recently been hospitalized in March, with bronchitis, COPD exacerbation, poorly controlled type 2 diabetes mellitus, and hypertensive urgency. He was subsequently hospitalized in May, with what was felt to be altered mental status and sedation due to polypharmacy with the effects of baclofen, gabapentin, and hydrocodone. There have been recent underlying concerns with regards to infection due to cholecystitis. Per review of progress notes,he has a history of calciphylaxis of the right lower extremity with non-healing ulcer. Undergoing treatment at [facility] with sodium thiosulfate infusions M-. Problem List: 1.Nonischemic cardiomyopathy, NYHA Class III+, chronic left bundle branch block status post biventricular pacemaker defibrillator implantation in June of 2017. EF 40-45% in May 2021 ([facility]) Compensated systolic and diastolic congestive heart failure signs and symptoms. 2.Chronic atrial fibrillation, prescribed reduce dose/off-label Eliquis, 2.5 mg twice per day, as per Dr. Graves, previously prescribed Coumadin (not recommended by Nephrology due to calciphylaxis), without bleeding issues. 3.Calcific aortic valve disease with severe aortic valve stenosis. At present, he does not appear to be a candidate for TAVR; reconsider if/wounds heal and the other acute issues are at bay. 4.Atherosclerotic coronary disease without obstruction by last cardiac catheterization June 2016. 5.Pulmonary hypertension. 6.Severe central and obstructive sleep apnea syndrome, treated with PAP therapy 7.CVA in November 2019, while off anticoagulation for endoscopy 8.COPD. Left lower lobe pulmonary nodule. 9.Stage IV chronic kidney disease followed by Dr. Bosch. 10.Peripheral artery disease. 11.Hypertension. Status post adrenalectomy at [facility] per patient report. 12.Dyslipidemia 13.Chronic anemia, history of iron deficiency, chronic thrombocytopenia. 14.Type 2 diabetes mellitus. Followed by PCP, poorly controlled. 15.History of bacteremia/sepsis, possibly related to acute cholecystitis with intermittent abdominal pain 16.Calciphylaxis 17.Significant right lower extremity open wound Allergies Allergy/AdvReac Type Severity Reaction Status Date / Time prednisone AdvReac Severe BSG'S OVER Verified 07/08/21 16:52 400-CONFUSION, DISORIENTED Home Medications Medication Instructions Recorded Confirmed Type aspirin 81 mg tablet,delayed 81 mg PO QAM 02/05/18 07/03/21 History release pantoprazole 40 mg tablet,delayed 40 mg PO QAM 02/05/18 07/03/21 History release (Protonix) albuterol sulfate 90 mcg/actuation 2 puff INHALATION Q4H PRN 08/01/18 07/03/21 History aerosol inhaler (ProAir HFA) fluticasone propionate 50 2 spray INTRANASAL DAILY PRN 08/01/18 07/03/21 History mcg/actuation nasal spray,suspension (Flonase Allergy Relief) ipratropium 0.5 mg-albuterol 3 mg 3 ml INHALATION QID PRN 08/01/18 07/03/21 History (2.5 mg base)/3 mL nebulization soln fluticasone furoate 100 1 inh INHALATION QAM 03/02/20 07/03/21 History mcg-vilanterol 25 mcg/dose inhalation powder (Breo Ellipta) metoprolol succinate 100 mg 100 mg PO BID #60 tab 08/14/20 07/03/21 Rx tablet,extended release 24 hr (Toprol XL) atorvastatin 80 mg tablet 80 mg PO QPM 09/17/20 07/03/21 History insulin glargine 100 unit/mL (3 36 unit SUBCUT BID ml 01/17/21 07/03/21 History mL) subcutaneous pen (Lantus Solostar U-100 Insulin) insulin lispro 100 unit/mL 0 sliding scale dose SUBCUT TIDM 01/17/21 07/03/21 History subcutaneous pen (Humalog KwikPen (U-100) Insulin) apixaban 2.5 mg tablet 2.5 mg PO BID 03/01/21 07/03/21 History hydralazine 25 mg tablet 75 mg PO TID 04/07/21 07/03/21 History digoxin 125 mcg (0.125 mg) tablet 125 mcg PO DAILY 04/24/21 07/03/21 History isosorbide dinitrate 10 mg tablet 10 mg PO TID 04/24/21 07/03/21 History torsemide 20 mg tablet See Rx Instructions .ROUTE .COMPLEX 04/24/21 07/03/21 History sodium chloride 0.9 % (flush) 10 ml IV DAILY 05/26/21 07/03/21 History (Normal Saline Flush) amlodipine 5 mg tablet (Norvasc) 5 mg PO QAM #30 tab 05/30/21 07/03/21 Rx acetaminophen 500 mg tablet 500 - 1,000 mg PO DIRECTED PRN 07/03/21 07/03/21 History (Tylenol Extra Strength) docusate sodium 100 mg capsule 100 mg PO BID PRN 07/03/21 07/03/21 History fluticasone 500 mcg-salmeterol 50 1 inh INHALATION Q12H 07/03/21 07/03/21 History mcg/dose blistr powdr for inhalation (Advair Diskus) oxycodone 10 mg tablet,crush 10 mg PO Q6 PRN 07/03/21 07/03/21 History resistant,extended release 12 hr (OxyContin) potassium chloride 20 mEq 20 meq PO DAILY 07/03/21 07/03/21 History tablet,extended release promethazine 6.25 mg/5 mL oral 6.25 mg PO Q6H PRN 07/03/21 07/03/21 History syrup sennosides 8.6 mg tablet (Senna 8.6 - 17.2 mg PO BID PRN 07/03/21 07/03/21 History Laxative) Patient History Medical History Aortic stenosis Severe aortic stenosis vs pseudo aortic stenosis due to low output per cardio note from 12/2019 ECHO Asthma Atrial fibrillation on warfarin CAD (coronary artery disease) "nonobstructive" Chronic anemia Chronic kidney disease Stage 4, under surveillance by Dr. Mcdermott (no dialysis at this time) Chronic systolic (congestive) heart failure Chronic systolic (congestive) heart failure COPD (chronic obstructive pulmonary disease) COPD (chronic obstructive pulmonary disease) Diabetic neuropathy DM type 2 (diabetes mellitus, type 2) IDDM Dyslipidemia Gall stones GERD (gastroesophageal reflux disease) History of COVID-19 Dx 08/05/20(hospitalized at [facility]) > symptoms at time of cough, SOB, generalized weakness, n/v/d, loss of taste/smell > "resolved" History of multiple pulmonary nodules Hypertension LBBB (left bundle branch block) Nonischemic cardiomyopathy S/p BIV AICD in place; follows with Dr. 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 Feels Safe at Home: Yes Assistive Devices: CPAP Review of Systems Review of Systems: All systems reviewed & are unremarkable except as noted in HPI & below Physical Exam Physical Exam: Pulse Resp BP Pulse Ox 72 16 115/71 96 07/08/21 15:49 07/08/21 15:49 07/08/21 15:49 07/08/21 15:49 Constitutional: WD/WN, vitals as above Respiratory: normal respiratory effort, lungs clear to auscultation Cardiovascular: Rate/Rhythm: regular rate Heart Sounds: + murmur (2/6 systolic murmur) Extremities: + edema Gastrointestinal (Abdomen): normal bowel sounds, soft, nontender, no h epatosplenomegaly Neurologic: No focal deficits, conversant Results & Data ([facility]) Vital Signs (Past 12 Hours) Vital Signs Pulse Resp BP Pulse Ox 07/08/21 15:49 72 16 115/71 96 Laboratory Results Cardiac Enzymes 07/08/21 Range/Units 15:15 AST 24 (13-39) U/L CBC 07/08/21 Range/Units 15:15 WBC 8.51 (4.8-10.8) K/uL RBC 4.47 L (4.7-6.1) M/uL Hgb 12.5 L (14.0-18.0) g/dL Hct 38.0 L (42-52) % Plt Count 181 (130-400) K/uL Neut # (Auto) 6.77 H (1.4-6.5) K/uL Lymph # (Auto) 1.03 L (1.2-3.4) K/uL Richardson # (Auto) 0.46 (0.11-0.59) K/uL Eos # (Auto) 0.20 (0-0.5) K/uL Baso # (Auto) 0.03 (0-0.2) K/uL Comprehensive Metabolic Panel 07/08/21 Range/Units 15:15 Sodium 139 (136-145) mmol/L Potassium 3.8 (3.5-5.1) mmol/L Chloride 100 (98-107) mmol/L Carbon Dioxide 28 (21-32) mmol/L BUN 57 H (6-23) mg/dl Creatinine 3.48 H (0.6-1.4) mg/dl Glucose 181 H (70-99(Fasting)) mg/dl Calcium 9.7 (8.5-10.1) mg/dl AST 24 (13-39) U/L ALT 32 (7-52) U/L Alkaline Phosphatase 173 H (34-104) U/L Total Protein 7.3 (6.0-8.3) gm/dl Albumin 3.9 (3.4-5.0) gm/dl Diagnostic Findings May 27, 2021 TTE Interpretation Summary ([facility], Dr. Zurita): Mildly dilated left ventricle. Moderate concentric LVH. Mildly reduced LV systolic function. Ejection fraction 40 to 45%. Severe aortic valve stenosis. Bicuspid aortic valve cannot be excluded. Normal RV systolic function. Moderately dilated left atrium. Moderately dilated right atrium. Mild mitral regurgitation. May 27, 2021 device interrogation: Appropriate function. Remaining longevity: 2.5 years. Chronic atrial fibrillation. No VT. No VF. Bi V paced 87.1%. Reduced percentage of biventricular pacing, felt to be secondary to atrial fibrillation, has improved (1) Aortic stenosis Cardiac valve disease etiology: nonrheumatic Qualified Code(s): I35.0 - Nonrheumatic aortic (valve) stenosis
--- NOTE | 2021-07-08 17:02 | Electrocardiogram Report ---
Test Reason : Blood Pressure : / mmHG Vent. Rate : 074 BPM Atrial Rate : 085 BPM P-R Int : 000 ms QRS Dur : 196 ms QT Int : 470 ms P-R-T Axes : 000 136 -07 degrees QTc Int : 521 ms Ventricular-paced rhythm Abnormal ECG When compared with ECG of 03-JUL-2021 12:15, No significant change was found Confirmed by Minor Parry [id number] on 07/08/2021 5:01:53 PM Referred By: Confirmed By:Brnuo Parry
[2021-07-08 17:05] LABS: Thyroid Stimulating Hormone 4.895 uIu/ml (0.300-4.500)
[2021-07-08 17:41] LABS: T4 Free Thyroxine 0.89 ng/dl (0.61-1.60)
[2021-07-08] MEDS ORDERED: ACETAMINOPHEN 325 MG TAB PO PRN (19:44)
[2021-07-08] MEDS ORDERED: PHARMACY GLYCEMIC MGMT CONSULT PRN (19:44)
[2021-07-08] MEDS ORDERED: FLUTICASONE/SALMETEROL (ADVAIR) 500/50 INH 14 PUFF INH SCH (19:44)
[2021-07-08] MEDS ORDERED: GLUCOSE 40% GEL 15 GM TUBE PO PRN (20:45)
[2021-07-08] MEDS ORDERED: CARBOHYDRATES FOR HYPOGLYCEMIA PO PRN (20:45)
[2021-07-08] MEDS ORDERED: DEXTROSE 50% 50 ML SYRINGE IV PRN (20:45)
[2021-07-08] MEDS ORDERED: GLUCOSE 10 TABS/TUBE PO PRN (20:45)
[2021-07-08] MEDS ORDERED: GLUCAGON FOR INJ 1 MG VIAL IM PRN (20:45)
[2021-07-08] MEDS ORDERED: INSULIN GLARGINE SOLOSTAR 100 UNITS/ML 3 ML PEN SQ ONE (21:00)
--- NOTE | 2021-07-08 21:15 | History & Physical Report ---
Date of Service July 08, 2021 Assessment & Plan (1) NSVT (nonsustained ventricular tachycardia): Plan: Admit to telemetry Patient presenting from home with reports of worsening lightheadedness and dizziness. EMS rhythm strips demonstrated 2 separate runs of V. tach. In the ED, patient is hemodynamically stable. Labs unremarkable/patient's baseline Evaluated by cardiology and started on IV amiodarone drip (2) Aortic stenosis: (3) Nonischemic cardiomyopathy: Plan: EF 45-50% s/p AICD Given recent issues with hypotension, suspected dehydration from nausea and vomiting, hold torsemide (4) Calciphylaxis: Plan: Currently receiving sodium thiosulfate infusions M-F Wound on right posterior calf appears to be healing well, wound nurse consult (5) CKD (chronic kidney disease) stage 4, GFR 15-29 ml/min: Plan: Creatinine 3.48, at baseline (6) Hypertension: Plan: Has been having issues recently with orthostasis, likely due to hypovolemia from ongoing nausea and vomiting from infusions for treatment of calciphylaxis Recently instructed by PCP to hold hydralazine and isosorbide dinitrate, will continue to hold Continue amlodipine and metoprolol (7) Chronic atrial fibrillation: Plan: Rate controlled on metoprolol Anticoagulated on Eliquis (reduced dose per cardiology) (8) DM type 2 (diabetes mellitus, type 2): Plan: Hgb A1c 10.7 05/2021 On Lantus and Humalog at home Pharmacy glycemic consult for inpatient management (9) ARPIT (obstructive sleep apnea): Plan: BiPAP as per home settings (10) DVT prophylaxis: Plan: On Eliquis Admission and Anticipated Discharge Date Admission Date: July 08, 2021 History of Present Illness Chief Complaint: Lightheadedness, dizziness Primary Care Provider: Mirlande Pickett MD 66-year-old medically complex male with PMH DM type II on insulin, idiopathic pancreatitis, COPD, ARPIT on CPAP, nonischemic cardiomyopathy EF 40 to 45% aortic stenosis, calciphylaxis currently receiving sodium thiosulfate infusions, chronic left bundle branch block status post biventricular pacemaker defibrillator, atrial fibrillation anticoagulated on Eliquis, HTN, history of CVA, pulmonary hypertension, and other problems to below who presents the ED for evaluation of lightheadedness and dizziness. For the past 1 month, patient has been receiving sodium thiosulfate infusions for treatment of calciphylaxis. He has had associated nausea, vomiting, poor appetite with these treatments. Patient also has been struggling with lightheadedness and dizziness, orthostasis. He was seen by PCP last week who instructed him to hold his hydralazine and isosorbide dinitrate. Today, patient had worsening lightheadedness and dizziness, near syncopal event. notes the blood pressure was very low. EMS was called and patient was brought to the ED for further evaluation. EMS rhythm strips observe the patient had 2 runs of nonsustained V. tach. Patient's defibrillator did not fire. Patient has a right calf wound that has been slowly been healing. Patient denies recent fevers and chills. No chest pain, shortness of breath, palpitations. Denies hematemesis, coffee-ground emesis, bright red blood in , dark tarry stools. No abdominal pain or diarrhea. In the ED, patient has remained hemodynamically stable. Labs are unremarkable/at patient's baseline. Cardiology has evaluated the patient and patient has been placed on amiodarone drip. Allergies Allergy/AdvReac Type Severity Reaction Status Date / Time prednisone AdvReac Severe BSG'S OVER Verified 07/08/21 16:52 400-CONFUSION, DISORIENTED Home Medications Medication Instructions Recorded Confirmed Type aspirin 81 mg tablet,delayed 81 mg PO QAM 02/05/18 07/08/21 History release pantoprazole 40 mg tablet,delayed 40 mg PO QAM 02/05/18 07/08/21 History release (Protonix) albuterol sulfate 90 mcg/actuation 2 puff INHALATION Q4H PRN 08/01/18 07/08/21 History aerosol inhaler (ProAir HFA) fluticasone propionate 50 2 spray INTRANASAL DAILY PRN 08/01/18 07/08/21 History mcg/actuation nasal spray,suspension (Flonase Allergy Relief) ipratropium 0.5 mg-albuterol 3 mg 3 ml INHALATION QID PRN 08/01/18 07/08/21 History (2.5 mg base)/3 mL nebulization soln fluticasone furoate 100 1 inh INHALATION QAM 03/02/20 07/08/21 History mcg-vilanterol 25 mcg/dose inhalation powder (Breo Ellipta) metoprolol succinate 100 mg 100 mg PO BID #60 tab 08/14/20 07/08/21 Rx tablet,extended release 24 hr (Toprol XL) atorvastatin 80 mg tablet 80 mg PO QPM 09/17/20 07/08/21 History insulin glargine 100 unit/mL (3 40 unit SUBCUT DAILY ml 01/17/21 07/08/21 History mL) subcutaneous pen (Lantus Solostar U-100 Insulin) insulin lispro 100 unit/mL 0 sliding scale dose SUBCUT TIDM 01/17/21 07/08/21 History subcutaneous pen (Humalog KwikPen (U-100) Insulin) apixaban 2.5 mg tablet 2.5 mg PO BID 03/01/21 07/08/21 History hydralazine 25 mg tablet 75 mg PO TID 04/07/21 07/08/21 History digoxin 125 mcg (0.125 mg) tablet 125 mcg PO DAILY 04/24/21 07/08/21 History isosorbide dinitrate 10 mg tablet 10 mg PO TID 04/24/21 07/08/21 History torsemide 20 mg tablet See Rx Instructions .ROUTE .COMPLEX 04/24/21 07/08/21 History sodium chloride 0.9 % (flush) 10 ml IV DAILY 05/26/21 07/08/21 History (Normal Saline Flush) amlodipine 5 mg tablet (Norvasc) 5 mg PO QAM #30 tab 05/30/21 07/08/21 Rx acetaminophen 500 mg tablet 500 - 1,000 mg PO DIRECTED PRN 07/03/21 07/08/21 History (Tylenol Extra Strength) docusate sodium 100 mg capsule 100 mg PO BID PRN 07/03/21 07/08/21 History fluticasone 500 mcg-salmeterol 50 1 inh INHALATION Q12H 07/03/21 07/08/21 History mcg/dose blistr powdr for inhalation (Advair Diskus) oxycodone 10 mg tablet,crush 10 mg PO BID 07/03/21 07/08/21 History resistant,extended release 12 hr (OxyContin) potassium chloride 20 mEq 20 meq PO DAILY 07/03/21 07/08/21 History tablet,extended release promethazine 6.25 mg/5 mL oral 6.25 mg PO Q6H PRN 07/03/21 07/08/21 History syrup sennosides 8.6 mg tablet (Senna 8.6 - 17.2 mg PO BID PRN 07/03/21 07/08/21 History Laxative) insulin glargine 100 unit/mL (3 35 unit SUBCUT HS 07/08/21 07/08/21 History mL) subcutaneous pen (Lantus Solostar U-100 Insulin) oxycodone 5 mg tablet 5 mg PO Q4H PRN 07/08/21 07/08/21 History Past Med/Surg History Medical History Aortic stenosis Severe aortic stenosis vs pseudo aortic stenosis due to low output per cardio note from 12/2019 ECHO Asthma Atrial fibrillation on warfarin CAD (coronary artery disease) "nonobstructive" Chronic anemia Chronic kidney disease Stage 4, under surveillance by Dr. Mcdermott (no dialysis at this time) Chronic systolic (congestive) heart failure COPD (chronic obstructive pulmonary disease) Diabetic neuropathy DM type 2 (diabetes mellitus, type 2) IDDM Dyslipidemia Gall stones GERD (gastroesophageal reflux disease) History of COVID-19 Dx 08/05/20(hospitalized at [place]) > symptoms at time of cough, SOB, generalized weakness, n/v/d, loss of taste/smell > "resolved" History of multiple pulmonary nodules Hypertension LBBB (left bundle branch block) Nonischemic cardiomyopathy S/p BIV AICD in place; follows with Dr. Graves Presence of combination internal cardiac defibrillator (ICD) and pacemaker Implanted 5+ years ago, [employer], last check 07/2020 Pulmonary HTN PVD (peripheral vascular disease) Sleep apnea + nocturnal hypoxia > BIPAP + 2L O2 HS Stroke 11/2019 > residual speech difficulty/short term memory issues Surgical History H/O cardiac catheterization Non nonobstructive CAD on 2017 cardiac cath H/O total adrenalectomy Left (25 years ago) History of colonoscopy History of esophagogastroduodenoscopy (EGD) S/P debridement (01/08/21) Left Lower Extremity Medial and Lateral excisional Debridement ( greater than 20 sq. cm and Biopsy( both wounds)) - Ignacio Chisholm, 01/08/21 Family History Sister Diabetes Brother Diabetes Other Hypertension Lung cancer Social History Smoking Status: Heavy tobacco smoker Tobacco Type: Smokeless Tobacco (Dip or Chew) Second Hand Exposure: No; Do You Dip or Chew Tobacco: Yes; Tobacco Cessation Education Requested by Patient: No Hx Alcohol Use: No Hx Substance Use: No Preferred Language: Maldivian Communication Ability: Effective Visual Impairment: Limited Cleaning And Maintenance Worker Required: No Beliefs That Will Affect Care: None marital status: Current Living Situation: Spouse current occupational status: retired 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 How many Children do You have: 1 Other Information That Helps Us Care for You: No Feels Safe at Home: Yes Safety Concerns: Feels Safe At This Time Assistive Devices: CPAP Review of Systems Review of Systems: ROS per HPI, all other systems reviewed and negative Physical Exam Constitutional: WD/WN, vitals as above + ill appearing (Chronically) Eyes: PERRL, conjunctivae normal, anicteric sclerae ENMT: external ear and nose normal, oropharynx normal Respiratory: normal respiratory effort, lungs clear to auscultation Cardiovascular: Rate/Rhythm: regular rate and regular rhythm Vessels: normal peripheral pulses Extremities: no edema Gastrointestinal (Abdomen): normal bowel sounds, soft, nontender, no hepatosplenomegaly Musculoskeletal: no cyanosis or clubbing, extremities motor strength 5/5 Skin: no rashes, warm and dry Wound noted to right posterior calf with necrotic base Neurologic: PERRL, EOMI, accommodation nl, no face palsy, no dysarthria Psychiatric: A+Ox3, euthymic affect Results & Data Results & Data ([facility]) Vital Signs (Past 12 Hours) Vital Signs Temp Pulse Pulse Resp BP BP Pulse Ox 07/08/21 19:30 36.7 C 97 H 21 142/81 H 97 07/08/21 18:35 84 18 147/89 H 95 07/08/21 18:00 74 18 138/68 96 07/08/21 17:45 69 16 133/73 95 07/08/21 17:30 72 20 113/66 98 07/08/21 17:15 62 18 147/83 H 99 07/08/21 17:03 70 18 137/76 98 07/08/21 17:00 62 16 137/76 98 07/08/21 16:45 64 18 128/73 98 07/08/21 16:30 72 20 141/82 H 99 07/08/21 16:16 69 20 115/78 98 07/08/21 15:49 72 16 115/71 96 Laboratory Results Short CBC 07/08/21 Range/Units 15:15 WBC 8.51 (4.8-10.8) K/uL Hgb 12.5 L (14.0-18.0) g/dL Hct 38.0 L (42-52) % Plt Count 181 (130-400) K/uL BMP 07/08/21 15:15 Sodium 139 Potassium 3.8 Chloride 100 Carbon Dioxide 28 BUN 57 H Creatinine 3.48 H Glucose 181 H Calcium 9.7 Liver Function 07/08/21 Range/Units 15:15 Total Bilirubin 0.8 (0.2-1.0) mg/dl AST 24 (13-39) U/L ALT 32 (7-52) U/L Alkaline Phosphatase 173 H (34-104) U/L Albumin 3.9 (3.4-5.0) gm/dl Diagnostic Findings Chest X-Ray 07/08/21 15:49 XR chest 1V portable CLINICAL HISTORY: weakness TECHNIQUE: Single frontal radiograph of the chest was obtained. Comparison: Comparison is made to chest one view 07/03/2021 FINDINGS: Pacemaker defibrillator is seen. Cardiomegaly is noted. The lungs are clear. No evidence of pleural effusion or pneumothorax. IMPRESSION: No acute chest disease. ACT 112: Negative or not required by law. Electronically signed by: Edilberto Stearns M.D. 07/08/2021 4:18 PM Code Status & VTE Plan Code Status Patient is a full code as per my discussion with him. Patient states that his , Lina, would be his decision-maker in the event he would be unable to. VTE Prophylaxis Plan VTE Prophylaxis will be ordered: No Supervising Physician Co-Signing Physician Notes Attending Addendum: delayed entry date of service noted above care coordinated with NAMRATA cox please refer to her notes for full details, I agree with her notes patient seen and examined, records reviewed by myself as well Jc Marquez MD (1) DM type 2 (diabetes mellitus, type 2) Diabetes mellitus complication detail: with unspecified neuropathy Diabetes mellitus complication status: with neurologic complications Diabetes mellitus senior living insulin use: with terminal operations manager use Qualified Code(s): E11.40 - Type 2 diabetes mellitus with diabetic neuropathy, unspecified; Z79.4 - terminal makeup operator (current) use of insulin (2) Aortic stenosis Cardiac valve disease etiology: nonrheumatic Qualified Code(s): I35.0 - Nonrheumatic aortic (valve) stenosis (3) Hypertension Hypertension type: unspecified Qualified Code(s): I10 - Essential (primary) hypertension
[2021-07-08] MEDS: APIXABAN 2.5 MG TAB PO SCH (21:30)
[2021-07-08] MEDS: ATORVASTATIN 40 MG TAB PO SCH (21:31)
[2021-07-08] MEDS: INSULIN ASPART PER UNIT SC SCH (21:31)
[2021-07-08] MEDS: oxyCODONE HCL 10 MG TABCR (OxyCONTIN) PO SCH (21:32)
[2021-07-08] MEDS: METOPROLOL SUCC 50MG EXT REL TAB PO SCH (21:32)
[2021-07-08 23:54] LABS: Appearance Urine Clear (Clear); Bacteria Urine Automated Negative (Negative); Bilirubin Urine Negative (Negative); Blood Urine Negative (Negative); Color Urine Yellow; Epithelial Cell Urine Auto >30 /lpf (0-5); Glucose Urine UA 3+ (Negative); Ketones Urine Negative (Negative); Leukocyte Esterase Urine Negative (Negative); Nitrite Urine Negative (Negative); Protein Urine 3+ (Negative); RBC Urine Automated 0-4 /hpf (0-4); Specific Gravity Urine 1.017 (1.000-1.030); Urobilinogen Urine Negative (Negative)
[2021-07-09] MEDS ORDERED: AMIODARONE / D5W 150 MG/100 ML BAG IV STA (00:47)
[2021-07-09] MEDS ORDERED: AMIODARONE IV BOLUS & DRIP IV STA (00:47)
[2021-07-09] MEDS ORDERED: 0.2 MICRON FILTER SET 1 EA IV ONE (00:47)
[2021-07-09] MEDS ORDERED: STAT IV Infusion **Titration per Protocol STA (00:47)
[2021-07-09] MEDS ORDERED: AMIODARONE / D5W 360 MG/200 ML BAG IV ONE (00:59)
[2021-07-09] MEDS: oxyCODONE HCL IR 5 MG TAB (IMMEDIATE RELEASE) PO PRN ×2 (02:06→15:42)
[2021-07-09] MEDS: AMIODARONE / D5W 360 MG/200 ML BAG IV SCH ×2 (05:57→13:23)
[2021-07-09 07:31] LABS: Hematocrit (blood only) 33.8 % (42-52); Hemoglobin 10.9 g/dL (14.0-18.0); Mean Corpuscular Hemoglobin 27.6 pg (25-34); Mean Corpuscular Hgb Conc 32.2 g/dL (32-36); Mean Corpuscular Volume 85.6 fL (80-100); Mean Platelet Volume 10.4 fL (7.4-10.4); Platelet Count 133 K/uL (130-400); RDW Standard Deviation 44.3 fL (36.4-46.3); Red Blood Count 3.95 M/uL (4.7-6.1); White Blood Count 5.34 K/uL (4.8-10.8)
[2021-07-09 07:59] LABS: BUN Creatinine Ratio 16.4 (10-20); Creatinine Clr Calc Pharmacy 24.5 ml/min; Est GFR (African American) 20.8 ml/min; Est GFR (Non-African American) 17.9 ml/min; Potassium 3.9 mmol/L (3.5-5.1)
[2021-07-09] MEDS ORDERED: INSULIN GLARGINE SOLOSTAR 100 UNITS/ML 3 ML PEN SQ SCH (09:00)
[2021-07-09] MEDS ORDERED: DIGOXIN 0.125 MG TAB PO SCH (09:00)
[2021-07-09] MEDS: APIXABAN 2.5 MG TAB PO SCH ×2 (09:13→19:58)
[2021-07-09] MEDS: ASPIRIN 81 MG ECTAB PO SCH (09:13)
[2021-07-09] MEDS: METOPROLOL SUCC 50MG EXT REL TAB PO SCH ×2 (09:13→19:58)
[2021-07-09] MEDS: PANTOprazole 40 MG TAB PO SCH (09:13)
[2021-07-09] MEDS: oxyCODONE HCL 10 MG TABCR (OxyCONTIN) PO SCH ×2 (09:13→19:58)
[2021-07-09] MEDS: amLODIPine BESYLATE 5 MG TAB PO SCH (09:13)
[2021-07-09] MEDS: FLUTICASONE/VILANTEROL 100/25MCG 14 PUFFS/INHALER INH SCH (09:13)
[2021-07-09] MEDS: POTASSIUM CHLORIDE CRTAB 20 MEQ TABCR PO SCH (09:14)
[2021-07-09] MEDS: INSULIN ASPART PER UNIT SC SCH ×4 (09:42→20:35)
[2021-07-09] MEDS: INSULIN GLARGINE SOLOSTAR 100 UNITS/ML 3 ML PEN SQ SCH ×2 (09:42→20:37)
--- NOTE | 2021-07-09 10:49 | Electrocardiogram Report ---
Test Reason : Blood Pressure : / mmHG Vent. Rate : 066 BPM Atrial Rate : 040 BPM P-R Int : 000 ms QRS Dur : 202 ms QT Int : 504 ms P-R-T Axes : 000 200 -02 degrees QTc Int : 528 ms Ventricular-paced rhythm Abnormal ECG When compared with ECG of 08-JUL-2021 15:47, Vent. rate has decreased BY 8 BPM Confirmed by Minor Parry ([id number]) on 07/09/2021 10:48:47 AM Referred By: REFERRED SELF Confirmed By:Bruno Parry
--- NOTE | 2021-07-09 10:55 | Pharmacy Report ---
Pharmacy Glycemic Short Note 2 - Date of Service July 09, 2021 - Glycemic Short BSG Results (Last 24 hours): 07/08/21 07/08/21 07/09/21 15:15 20:23 06:45 Glucose 181 H 176 H POC Glucose 200 H 07/09/21 07/09/21 07:03 10:25 Glucose POC Glucose 176 H 206 H OUTPATIENT ANTIDIABETIC REGIMEN: * Lantus 40 units QAM, Lantus 35 units HS, Humalog 7 units with breakfast, 27 units with lunch, 8 units with dinner * A1c - 10.7 05/2021 ASSESSMENT: * Patient admitted with NSVT, started on amiodarone drip. PMHx of CKD stage 4, htn, cardiomyopathy, afib, type 2 diabetes. Pharmacy consulted for glycemic management. Patient known to service from other admissions * Last admitted 05/2021. During previous admissions it appears patient does not require full home basal dose. BSGs go low if home basal dose utilized. Appears home regimen is basal heavy. Typically he only requires ~25-30 units/day of basal during hospital stay, but requires tight CF/CR * Will plan to utilize similar parameters as last visit. Fasting BSG 176 mg/dL - plan to give 15 units of Lantus this AM and then have a scale for HS for 10-15 units. Will use CF of 10, CR of 2 which was used last admission PLAN FOR INPATIENT GLYCEMIC CONTROL: * Hold outpatient oral diabetes medications * Basal insulin * Lantus - 15 units x 1 * Lantus 10-15 units HS based upon BSG value * Bolus insulin * NovoLog per scale ACHS or Q6hrs while NPO * Goal Range: Low 110 mg/dL - High 140 mg/dL * Correction Factor: 10 mg/dL/unit * Nutritional / Prandial insulin per carb ratio of 1 unit per 2 grams CHO consumed
[2021-07-09] MEDS ORDERED: AMIODARONE 200 MG TAB PO ONE (11:09)
--- NOTE | 2021-07-09 11:10 | Cardiology Progress Note ---
Date of Service July 09, 2021 Assessment & Plan (1) Acute hypotension: (2) Chronic systolic (congestive) heart failure: (3) NSVT (nonsustained ventricular tachycardia): (4) Aortic stenosis: (5) Calciphylaxis of right lower extremity with nonhealing ulcer: Plan: NSVT: Continue metoprolol succinate 100 mg BID. Continue IV amiodarone an add oral low. Discontinue digoxin. Has BiV pacemaker AICD for heart rate support. LFTs normal, TSH stable at 4.895. Dizziness / hypotension: symptoms findings do no correlate with the episodes of NSVT, however the NSVT does likely point to the severity of illness of the patient. Holding torsemide, Hydralazine, isosorbide. Management of BP is difficult given recent low BPs prompting medication holds, however, had hypertensive urgency 03/2021 with systolic BPs of 200 mm Hg at that time. Calciphylaxis (calcific uremic arteriolopathy) with poorly healing R lower leg wound: Previously diagnosed. Off of coumadin, and instead is on off label dose of Eliquis 2.5 mg BID in setting of stage IV CKD as an alternative. Admitting team brings up good point that patient notes nausea/ vomiting with onset that correlates with receiving sodium thiosulfate infusion therapy. Nausea / vomiting is associated with this agent. Avoid / minimize Aofran treatment given use of amiodarone. Severe Aortic stenosis: Unable to intervene on with ongoing leg wound. Admission and Anticipated Discharge Date Admission Date: July 08, 2021 Subjective Mr Delarosa is seen in follow up of dizziness and episodes of nonsustained ventricular tachycardia. BPs stable. P with 8 additional episodes of NSVT overnight. Most recetn was at 2:11 am, of 20 beats in duration. Longest episode was 23 beats in duration. Physical Exam Constitutional: WD/WN, vitals as above Respiratory: normal respiratory effort, lungs clear to auscultation Cardiovascular: Rate/Rhythm: regular rate Heart Sounds: + murmur (2/6 systolic murmur) Extremities: + edema Gastrointestinal (Abdomen): normal bowel sounds, soft, nontender, no hepatosplenomegaly Results & Data ([facility]) Vital Signs (Past 12 Hours) Vital Signs Temp Pulse Pulse Resp BP Pulse Ox 07/09/21 09:51 75 22 158/81 H 92 07/09/21 09:14 88 07/09/21 07:46 37.0 C 71 19 109/65 100 07/09/21 03:05 36.8 C 85 16 141/80 H 96 07/09/21 00:09 91 H 129/78 07/08/21 23:05 36.7 C 70 18 123/64 99 (1) Aortic stenosis Cardiac valve disease etiology: nonrheumatic Qualified Code(s): I35.0 - Nonrheumatic aortic (valve) stenosis
[2021-07-09] MEDS: AMIODARONE 200 MG TAB PO SCH (16:52)
--- NOTE | 2021-07-09 17:51 | Hospitalist Progress Note ---
Date of Service July 09, 2021 Assessment & Plan (1) NSVT (nonsustained ventricular tachycardia): Plan: Per NAMRATA cox: Patient presenting from home with reports of worsening lightheadedness and dizziness. EMS rhythm strips demonstrated 2 separate runs of V. tach. In the ED, patient is hemodynamically stable. Labs unremarkable/patient's baseline Evaluated by cardiology and started on IV amiodarone drip 07/09/2021 Currently on IV amiodarone, overlap with p.o. amiodarone as well Usual metoprolol continued Usual digoxin discontinued Usual torsemide, hydralazine, isosorbide being held due to hypotension Has biventricular pacemaker AICD Route Contractor consulted (2) Aortic stenosis: (3) Nonischemic cardiomyopathy: Plan: EF 45-50% s/p AICD Given recent issues with hypotension, suspected dehydration from nausea and vomiting, hold torsemide, hydralazine, isosorbide (4) Calciphylaxis: Plan: Currently receiving sodium thiosulfate infusions M-F Wound on right posterior calf appears to be healing well, wound nurse consult (5) CKD (chronic kidney disease) stage 4, GFR 15-29 ml/min: Plan: Creatinine 3.3, at baseline (6) Hypertension: Plan: Has been having issues recently with orthostasis, likely due to hypovolemia from ongoing nausea and vomiting from infusions for treatment of calciphylaxis hold torsemide,hydralazine and isosorbide dinitrate Continue amlodipine and metoprolol (7) Chronic atrial fibrillation: Plan: Rate controlled on metoprolol Anticoagulated on Eliquis (reduced dose per cardiology) (8) DM type 2 (diabetes mellitus, type 2): Plan: Hgb A1c 10.7 05/2021 On Lantus and Humalog at home Pharmacy glycemic consult for inpatient management (9) ARPIT (obstructive sleep apnea): Plan: BiPAP as per home settings (10) DVT prophylaxis: Plan: On Eliquis Admission and Anticipated Discharge Date Admission Date: July 08, 2021 Subjective Follow-up for nonsustained ventricular tachycardia, hypotension, etc. Seen sitting up in bed, comfortable, not distressed In good spirits States he feels better today overall Denies chest pain, palpitations, dizziness, nausea vomiting No other symptoms Review of Systems Review of Systems: all noted and negative except for above Physical Exam Physical Exam: General- oriented x 3, not in distress, speaks in sentences with no effort or accessory muscle use Eyes- anicteric Neck- no JVD Lungs- clear breath sounds bilaterally, no rales/wheezes Heart- normal rate, regular rhythm; no murmurs Abdomen- normal bowel sounds, nondistended, soft, nontender Extremities- no pretibial edema, no calf tenderness Positive wound on the distal lower leg, right, scabbing No surrounding erythema/warmth/tenderness to suggest cellulitis Neuro- alert, oriented x 3; no gross focal neurologic deficits Skin- warm & dry Results & Data Results & Data ([facility]) Vital Signs (Past 12 Hours) Vital Signs Temp Pulse Pulse Resp BP Pulse Ox 07/09/21 16:01 36.8 C 60 19 151/83 H 92 07/09/21 11:54 36.4 C L 93 H 20 144/79 H 96 07/09/21 09:51 75 22 158/81 H 92 07/09/21 09:14 88 07/09/21 07:46 37.0 C 71 19 109/65 100 all noted and reviewed including below (1) Aortic stenosis Cardiac valve disease etiology: nonrheumatic Qualified Code(s): I35.0 - Nonrheumatic aortic (valve) stenosis (2) Hypertension Hypertension type: unspecified Qualified Code(s): I10 - Essential (primary) hypertension (3) DM type 2 (diabetes mellitus, type 2) Diabetes mellitus residential insulin use: with residential use Diabetes mellitus complication status: with neurologic complications Diabetes mellitus complication detail: with unspecified neuropathy Qualified Code(s): E11.40 - Type 2 diabetes mellitus with diabetic neuropathy, unspecified; Z79.4 - exterminator termite (current) use of insulin
[2021-07-09] MEDS: ATORVASTATIN 40 MG TAB PO SCH (19:58)
[2021-07-10] MEDS: AMIODARONE / D5W 360 MG/200 ML BAG IV SCH ×3 (00:30→21:15)
[2021-07-10] MEDS: oxyCODONE HCL IR 5 MG TAB (IMMEDIATE RELEASE) PO PRN (04:58)
[2021-07-10 07:53] LABS: Basophils # (auto) 0.01 K/uL (0-0.2); Basophils % (auto) 0.2 %; Eosinophils # (auto) 0.16 K/uL (0-0.5); Eosinophils % (auto) 2.6 %; Hematocrit (blood only) 33.9 % (42-52); Hemoglobin 10.7 g/dL (14.0-18.0); Immature Granulocytes # (auto) 0.02 K/uL (0.00-0.02); Immature Granulocytes % (auto) 0.3 %; Lymphocytes # (auto) 0.81 K/uL (1.2-3.4); Lymphocytes % (auto) 13.4 %; Mean Corpuscular Hemoglobin 27.2 pg (25-34); Mean Corpuscular Hgb Conc 31.6 g/dL (32-36); Mean Platelet Volume 9.9 fL (7.4-10.4); Monocytes # (auto) 0.48 K/uL (0.11-0.59); Monocytes % (auto) 7.9 %; Neutrophils # (auto) 4.56 K/uL (1.4-6.5); Neutrophils % (auto) 75.6 %; Platelet Count 127 K/uL (130-400); RDW Coefficient of Variation 14.1 % (11.5-14.5); RDW Standard Deviation 44.7 fL (36.4-46.3); Red Blood Count 3.94 M/uL (4.7-6.1); White Blood Count 6.04 K/uL (4.8-10.8)
[2021-07-10] MEDS: oxyCODONE HCL 10 MG TABCR (OxyCONTIN) PO SCH ×2 (08:12→19:54)
[2021-07-10] MEDS: APIXABAN 2.5 MG TAB PO SCH ×2 (08:13→19:54)
[2021-07-10] MEDS: ASPIRIN 81 MG ECTAB PO SCH (08:13)
[2021-07-10] MEDS: POTASSIUM CHLORIDE CRTAB 20 MEQ TABCR PO SCH (08:13)
[2021-07-10] MEDS: FLUTICASONE/VILANTEROL 100/25MCG 14 PUFFS/INHALER INH SCH (08:13)
[2021-07-10] MEDS: METOPROLOL SUCC 50MG EXT REL TAB PO SCH ×2 (08:13→19:54)
[2021-07-10] MEDS: PANTOprazole 40 MG TAB PO SCH (08:13)
[2021-07-10] MEDS: amLODIPine BESYLATE 5 MG TAB PO SCH (08:13)
[2021-07-10] MEDS: AMIODARONE 200 MG TAB PO SCH ×2 (08:13→17:17)
[2021-07-10] MEDS: INSULIN ASPART PER UNIT SC SCH ×4 (08:19→21:10)
[2021-07-10] MEDS: INSULIN GLARGINE SOLOSTAR 100 UNITS/ML 3 ML PEN SQ SCH ×2 (08:19→21:14)
[2021-07-10 08:25] LABS: BUN Creatinine Ratio 14.8 (10-20); Calcium 9.1 mg/dl (8.5-10.1); Creatinine Clr Calc Pharmacy 25.1 ml/min; Est GFR (African American) 21.6 ml/min; Est GFR (Non-African American) 18.6 ml/min; Potassium 3.9 mmol/L (3.5-5.1)
--- NOTE | 2021-07-10 13:35 | Electrocardiogram Report ---
Test Reason : Blood Pressure : / mmHG Vent. Rate : 084 BPM Atrial Rate : 084 BPM P-R Int : 176 ms QRS Dur : 206 ms QT Int : 482 ms P-R-T Axes : 000 204 009 degrees QTc Int : 569 ms Ventricular-paced rhythm with fusion beats When compared with ECG of 09-JUL-2021 05:29, Vent. rate has increased BY 18 BPM Confirmed by Minor Parry ([id number]) on 07/10/2021 1:35:18 PM Referred By: REFERRED SELF Confirmed By:Bruno Parry
--- NOTE | 2021-07-10 13:43 | Cardiology Progress Note ---
Date of Service July 10, 2021 Assessment & Plan (1) Acute hypotension: (2) Chronic systolic (congestive) heart failure: (3) NSVT (nonsustained ventricular tachycardia): (4) Aortic stenosis: (5) Calciphylaxis of right lower extremity with nonhealing ulcer: Plan: NSVT: Continue metoprolol succinate 100 mg BID. Continue IV amiodarone an add oral low. Discontinue digoxin. Has BiV pacemaker AICD for heart rate support. LFTs normal, TSH stable at 4.895. Dizziness / hypotension: symptoms findings do no correlate with the episodes of NSVT, however the NSVT does likely point to the severity of illness of the patient. Holding torsemide, Hydralazine, isosorbide. Management of BP is difficult given recent low BPs prompting medication holds, however, had hypertensive urgency 03/2021 with systolic BPs of 200 mm Hg at that time. Calciphylaxis (calcific uremic arteriolopathy) with poorly healing R lower leg wound: Previously diagnosed. Off of coumadin, and instead is on off label dose of Eliquis 2.5 mg BID in setting of stage IV CKD as an alternative. Admitting team brings up good point that patient notes nausea/ vomiting with onset that correlates with receiving sodium thiosulfate infusion therapy. Nausea / vomiting is associated with this agent. Avoid / minimize Aofran treatment given use of amiodarone. Severe Aortic stenosis: Unable to intervene on with ongoing leg wound. Admission and Anticipated Discharge Date Admission Date: July 08, 2021 Subjective Pt seen in follow up. Denies complaints. Two runs of NSVT noted on telemetry this am of 8 and 9 beats in duration without associated symptoms. Physical Exam Constitutional: WD/WN, vitals as above Respiratory: normal respiratory effort, lungs clear to auscultation Cardiovascular: Rate/Rhythm: regular rate Heart Sounds: + murmur (2/6 systolic murmur) Extremities: + edema Gastrointestinal (Abdomen): normal bowel sounds, soft, nontender, no hepatosplenomegaly Results & Data ([facility]) Vital Signs (Past 12 Hours) Vital Signs Temp Pulse Resp BP Pulse Ox 07/10/21 10:53 36.7 C 62 20 146/80 H 99 07/10/21 07:41 36.9 C 63 20 150/79 H 99 07/10/21 07:00 36.4 C L 57 L 20 149/70 H 99 07/10/21 03:13 36.4 C L 60 16 142/58 H 100 (1) Aortic stenosis Cardiac valve disease etiology: nonrheumatic Qualified Code(s): I35.0 - Nonrheumatic aortic (valve) stenosis
--- NOTE | 2021-07-10 17:38 | Hospitalist Progress Note ---
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 Dizziness/Hypotension Patient presented 07/08 from home with reports of worsening lightheadedness and dizziness. EMS rhythm strips demonstrated 2 separate runs of V. tach. Pt has 8 beats of V Tach in AM 07/10 Pt hemodynamically stable, no chest pain Cardiology on board, on iv and oral amio, c/w metoprolol succinate 100 mg BD, DC digoxin LFTs nl and Thyroid fxn fairly WNL. Has biventricular pacemaker AICD Dizziness/hypotension not correlating with episodes of NSVT, Home torsemide, hydralazine, isosorbide are on hold. Pt's BP has been difficult to manage in the past fluctuating between low BP to Hypertensive urgency. Monitor and replete electrolytes as appropriate. (2) Aortic stenosis: (3) Nonischemic cardiomyopathy: Plan: EF 45-50% s/p AICD Given recent issues with hypotension, suspected dehydration from nausea and vomiting, hold torsemide, hydralazine, isosorbide (4) Calciphylaxis: Plan: Currently receiving sodium thiosulfate infusions M-F as OP. Wound on right posterior calf appears to be healing well, wound nurse on board. (5) CKD (chronic kidney disease) stage 4, GFR 15-29 ml/min: Plan: Creatinine 3.3 at presentation, at baseline (6) Hypertension: Plan: Has been having issues recently with orthostasis, likely due to hypovolemia from ongoing nausea and vomiting from infusions for treatment of calciphylaxis Minimize zofran use d/t amiodarone use. hold torsemide,hydralazine and isosorbide dinitrate d/t hypotension Continue amlodipine and metoprolol (7) Chronic atrial fibrillation: Plan: Rate controlled on metoprolol Anticoagulated on Eliquis (reduced dose per cardiology) (8) DM type 2 (diabetes mellitus, type 2): Plan: Hgb A1c 10.7 05/2021 On Lantus and Humalog at home Pharmacy glycemic consult for inpatient management (9) ARPIT (obstructive sleep apnea): Plan: BiPAP/CPAP as per home settings (10) DVT prophylaxis: Eiquis Admission and Anticipated Discharge Date Admission Date: July 08, 2021 Subjective Patient seen and examined at bedside as a follow-up of NSVT. Patient was lying in bed, on nasal CPAP, NAD, no new acute events overnight. Patient had 8 beats of V. tach in the morning. Patient denies any fever/headache/dizziness/chest pain/palpitations/belly pain/other review of symptoms. Patient reports eating okay. Physical Exam Physical Exam: GENERAL: Alert and oriented x3. NAD, on CPAP. HEENT: No pallor, no icterus. Pupils equal, round and reactive to light. Oral mucosa moist. NECK: No JVD, no neck masses. HEART: S1 and S2 heard. Regular rate and rhythm. systolic murmur at aortic and pulmonic area, no gallop. RESPIRATORY SYSTEM: Normal AP diameter. No accessory muscle use. No wheezing, no crackles. ABDOMEN: Soft, bowel sounds present, nontender, no distention. CENTRAL NERVOUS SYSTEM: No facial droop. Speech is clear. Obeys simple commands. Moves extremities. EXTREMITIES: No edema, no erythema seen. Chronic RLE posterior wound noted. No signs of infection. Results & Data Results & Data ([facility]) Vital Signs (Past 12 Hours) Vital Signs Temp Pulse Resp BP Pulse Ox 07/10/21 16:17 36.4 C L 64 18 166/82 H 92 07/10/21 15:48 96 07/10/21 10:53 36.7 C 62 20 146/80 H 99 07/10/21 07:41 36.9 C 63 20 150/79 H 99 07/10/21 07:00 36.4 C L 57 L 20 149/70 H 99
[2021-07-10] MEDS: ATORVASTATIN 40 MG TAB PO SCH (19:54)
[2021-07-11 07:08] LABS: Hematocrit (blood only) 33.9 % (42-52); Hemoglobin 10.9 g/dL (14.0-18.0)
[2021-07-11 07:29] LABS: Creatinine Clr Calc Pharmacy 24.5 ml/min; Est GFR (African American) 20.9 ml/min
[2021-07-11] MEDS: oxyCODONE HCL 10 MG TABCR (OxyCONTIN) PO SCH ×2 (08:14→21:36)
[2021-07-11] MEDS: AMIODARONE / D5W 360 MG/200 ML BAG IV SCH (08:14)
[2021-07-11] MEDS: PANTOprazole 40 MG TAB PO SCH (08:15)
[2021-07-11] MEDS: METOPROLOL SUCC 50MG EXT REL TAB PO SCH ×2 (08:15→21:35)
[2021-07-11] MEDS: ASPIRIN 81 MG ECTAB PO SCH (08:15)
[2021-07-11] MEDS: APIXABAN 2.5 MG TAB PO SCH ×2 (08:16→21:36)
[2021-07-11] MEDS: amLODIPine BESYLATE 5 MG TAB PO SCH (08:16)
[2021-07-11] MEDS: AMIODARONE 200 MG TAB PO SCH ×2 (08:16→16:54)
[2021-07-11] MEDS: POTASSIUM CHLORIDE CRTAB 20 MEQ TABCR PO SCH (08:16)
[2021-07-11] MEDS: FLUTICASONE/VILANTEROL 100/25MCG 14 PUFFS/INHALER INH SCH (08:17)
[2021-07-11] MEDS: INSULIN GLARGINE SOLOSTAR 100 UNITS/ML 3 ML PEN SQ SCH ×2 (08:18→21:36)
[2021-07-11] MEDS: INSULIN ASPART PER UNIT SC SCH ×4 (08:19→21:37)
--- NOTE | 2021-07-11 08:55 | Pharmacy Report ---
Pharmacy Glycemic Short Note 2 - Date of Service July 11, 2021 - Glycemic Short BSG Results (Last 24 hours): 07/10/21 07/10/21 07/10/21 11:23 16:41 20:58 POC Glucose 112 H 85 128 H 07/11/21 07:25 POC Glucose 200 H OUTPATIENT ANTIDIABETIC REGIMEN: * Lantus 40 units QAM, Lantus 35 units HS, Humalog 7 units with breakfast, 27 units with lunch, 8 units with dinner * A1c - 10.7 05/2021 ASSESSMENT: 07/11/21: * BSGs well-controlled yesterday, 167, 112, 85, and 128 mg/dL, fasting BSG of 200 mg/dL this morning * Received 72 units of insulin yesterday (25 units of basal and 47 units of prandial/correctional bolus) * Will increase Lantus today in light of elevated fasting BSG, maintain current Novolog parameters * Continues on amiodarone gtt Background: * Patient admitted with NSVT, started on amiodarone drip. PMHx of CKD stage 4, htn, cardiomyopathy, afib, type 2 diabetes. Pharmacy consulted for glycemic management. Patient known to service from other admissions * Last admitted 05/2021. During previous admissions it appears patient does not require full home basal dose. BSGs go low if home basal dose utilized. Appears home regimen is basal heavy. Typically he only requires ~25-30 units/day of b teresa during hospital stay, but requires tight CF/CR * Will plan to utilize similar parameters as last visit. Fasting BSG 176 mg/dL - plan to give 15 units of Lantus this AM and then have a scale for HS for 10-15 units. Will use CF of 10, CR of 2 which was used last admission PLAN FOR INPATIENT GLYCEMIC CONTROL: * Hold outpatient oral diabetes medications * Basal insulin * Lantus - 15 units SC BID * Bolus insulin * NovoLog per scale ACHS or Q6hrs while NPO * Goal Range: Low 110 mg/dL - High 140 mg/dL * Correction Factor: 10 mg/dL/unit * Nutritional / Prandial insulin per carb ratio of 1 unit per 2.5 grams CHO consumed
--- NOTE | 2021-07-11 12:24 | Cardiology Progress Note ---
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 Discontinue IV amiodarone, continue oral amiodarone. Prior to hospital treatment digoxin discontinued. Has BiV pacemaker AICD for heart rate support. LFTs normal, TSH stable at 4.895. Dizziness / hypotension: symptoms findings do no correlate with the episodes of NSVT, however the NSVT does likely point to the severity of illness of the patient. Holding torsemide, Hydralazine, isosorbide. Management of BP is difficult given recent low BPs prompting medication holds, however, had hypertensive urgency 03/2021 with systolic BPs of 200 mm Hg at that time. At present, blood pressure stable with most recent measurement of 124/60, without recurrent to severe hypertension. Calciphylaxis (calcific uremic arteriolopathy) with poorly healing R lower leg wound: Previously diagnosed. Off of coumadin, and instead is on off label dose of Eliquis 2.5 mg BID in setting of stage IV CKD as an alternative. Admitting team brings up good point that patient notes nausea/ vomiting with onset that correlates with receiving sodium thiosulfate infusion therapy. Nausea / vomiting is associated with this agent. Avoid / minimize Zofran treatment given use of amiodarone. Severe Aortic stenosis: Unable to intervene on with ongoing leg wound. Also, proceeding with aortic valve intervention with likely hasten progression of his CKD and need for dialysis. Admission and Anticipated Discharge Date Admission Date: July 08, 2021 Subjective Patient seen in cardiology follow-up. 2 brief runs of nonsustained VT noted this morning, 9 beat sima at 9:03 AM, 8 beats of noted at 9:10 AM, he also had a 6 beat run and a 7 beat run noted overnight. Asymptomatic. Amiodarone infusion ongoing. Nausea, vomiting improved. Physical Exam Constitutional: WD/WN, vitals as above Respiratory: normal respiratory effort, lungs clear to auscultation Cardiovascular: Rate/Rhythm: regular rate Heart Sounds: + murmur (2/6 systolic murmur) Extremities: + edema Gastrointestinal (Abdomen): normal bowel sounds, soft, nontender, no hepatosplenomegaly Results & Data ([facility]) Vital Signs (Past 12 Hours) Vital Signs Temp Pulse Pulse Resp BP Pulse Ox 07/11/21 10:04 84 07/11/21 08:10 36.8 C 66 18 124/60 93 07/11/21 03:44 37.1 C 65 18 123/76 99 (1) Aortic stenosis Cardiac valve disease etiology: nonrheumatic Qualified Code(s): I35.0 - Nonrheumatic aortic (valve) stenosis
--- NOTE | 2021-07-11 17:24 | Hospitalist Progress Note ---
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 Dizziness/Hypotension Patient presented 07/08 from home with reports of worsening lightheadedness and dizziness. EMS rhythm strips demonstrated 2 separate runs of V. tach. Pt has 8 beats of V Tach in AM 07/10 Pt hemodynamically stable, no chest pain Cardiology on board, on iv and oral amio, c/w metoprolol succinate 100 mg BD, DC digoxin LFTs nl and Thyroid fxn fairly WNL. Has biventricular pacemaker AICD Dizziness/hypotension not correlating with episodes of NSVT, Home torsemide, hydralazine, isosorbide are on hold. Pt's BP has been difficult to manage in the past fluctuating between low BP to Hypertensive urgency. Monitor and replete electrolytes as appropriate. (2) Aortic stenosis: (3) Nonischemic cardiomyopathy: Plan: EF 45-50% s/p AICD Given recent issues with hypotension, suspected dehydration from nausea and vomiting, hold torsemide, hydralazine, isosorbide (4) Calciphylaxis: Plan: Currently receiving sodium thiosulfate infusions M-F as OP. Recently on hold due to nausea and vomiting. Wound on right posterior calf appears to be healing well, wound nurse on board. (5) CKD (chronic kidney disease) stage 4, GFR 15-29 ml/min: Plan: Creatinine 3.3 at presentation, at baseline (6) Hypertension: Plan: Has been having issues recently with orthostasis, likely due to hypovolemia from ongoing nausea and vomiting from infusions for treatment of calciphylaxis Minimize zofran use d/t amiodarone use. hold torsemide,hydralazine and isosorbide dinitrate d/t hypotension Continue amlodipine and metoprolol (7) Chronic atrial fibrillation: Plan: Rate controlled on metoprolol Anticoagulated on Eliquis (reduced dose per cardiology) (8) DM type 2 (diabetes mellitus, type 2): Plan: Hgb A1c 10.7 05/2021 On Lantus and Humalog at home Pharmacy glycemic consult for inpatient management (9) ARPIT (obstructive sleep apnea): Plan: BiPAP/CPAP as per home settings (10) DVT prophylaxis: Eiquis Admission and Anticipated Discharge Date Admission Date: July 08, 2021 Subjective Patient seen and examined at bedside as a follow-up of NSVT. Patient was lying in bed, on RA, NAD, no new acute events overnight. Patient has freq NSVT noted over telemetry. Patient denies any fever/headache/dizziness/chest pain/palpitations/belly pain/other review of symptoms. Patient reports eating okay. Physical Exam Physical Exam: GENERAL: Alert and oriented x3. NAD, on CPAP. HEENT: No pallor, no icterus. Pupils equal, round and reactive to light. Oral mucosa moist. NECK: No JVD, no neck masses. HEART: S1 and S2 heard. Regular rate and rhythm. systolic murmur at aortic and pulmonic area, no gallop. RESPIRATORY SYSTEM: Normal AP diameter. No accessory muscle use. No wheezing, no crackles. ABDOMEN: Soft, bowel sounds present, nontender, no distention. CENTRAL NERVOUS SYSTEM: No facial droop. Speech is clear. Obeys simple commands. Moves extremities. EXTREMITIES: No edema, no erythema seen. Chronic RLE posterior wound noted. No signs of infection. Results & Data Results & Data ([facility]) Vital Signs (Past 12 Hours) Vital Signs Temp Pulse Pulse Resp BP Pulse Ox 07/11/21 17:01 36.7 C 88 20 115/62 97 07/11/21 14:52 94 H 07/11/21 12:25 36.5 C 73 18 110/60 98 07/11/21 10:04 84 07/11/21 08:10 36.8 C 66 18 124/60 93
[2021-07-11] MEDS ORDERED: POLYETHYLENE (MIRALAX) 17 GM PACK PO ONE (18:45)
[2021-07-11] MEDS: ATORVASTATIN 40 MG TAB PO SCH (21:36)
[2021-07-12 06:02] LABS: Hematocrit (blood only) 34.2 % (42-52); Hemoglobin 11.1 g/dL (14.0-18.0)
[2021-07-12 06:21] LABS: BUN Creatinine Ratio 15.3 (10-20); Calcium 9.4 mg/dl (8.5-10.1); Creatinine Clr Calc Pharmacy 23.9 ml/min; Est GFR (Non-African American) 17.3 ml/min; Magnesium 2.1 mg/dl (1.7-2.4); Potassium 4.5 mmol/L (3.5-5.1)
[2021-07-12] MEDS: amLODIPine BESYLATE 5 MG TAB PO SCH (08:41)
[2021-07-12] MEDS: APIXABAN 2.5 MG TAB PO SCH (08:41)
[2021-07-12] MEDS: POTASSIUM CHLORIDE CRTAB 20 MEQ TABCR PO SCH (08:41)
[2021-07-12] MEDS: PANTOprazole 40 MG TAB PO SCH (08:41)
[2021-07-12] MEDS: METOPROLOL SUCC 50MG EXT REL TAB PO SCH (08:41)
[2021-07-12] MEDS: ASPIRIN 81 MG ECTAB PO SCH (08:41)
[2021-07-12] MEDS: AMIODARONE 200 MG TAB PO SCH (08:42)
[2021-07-12] MEDS: oxyCODONE HCL 10 MG TABCR (OxyCONTIN) PO SCH (08:45)
[2021-07-12] MEDS: INSULIN ASPART PER UNIT SC SCH ×2 (08:48→12:05)
[2021-07-12] MEDS ORDERED: INSULIN GLARGINE SOLOSTAR 100 UNITS/ML 3 ML PEN SQ SCH ×2 (09:00→21:00)
[2021-07-12] MEDS: FLUTICASONE/VILANTEROL 100/25MCG 14 PUFFS/INHALER INH SCH (09:18)
--- NOTE | 2021-07-12 12:20 | Cardiology Progress Note ---
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 Amiodarone infusion discontinued 07/11/2021. Now on amiodarone 200 mg twice daily which will be continued. Prior to hospital treatment digoxin discontinued. Has BiV pacemaker AICD for heart rate support. LFTs normal, TSH stable at 4.895. Dizziness / hypotension: Symptoms / findings do no correlate with the episodes of NSVT, however the NSVT does likely point to the severity of illness of the patient. 1/2 blood cultures notable for coag negative staph on 07/03/2021, likely contaminant. Holding torsemide, Hydralazine, isosorbide. Management of BP is difficult given recent low BPs prompting medication holds, however, had hypertensive urgency 03/2021 with systolic BPs of 200 mm Hg at that time. At present, blood pressure stable with most recent measurement of , without recurrent to severe hypertension. 07/12/21: recommend resuming torsemide, per review of outpatient chart recent dose was 60 mg daily with 20 mg tablets, two tabs in am, and 1 tablet in afternoon. Calciphylaxis (calcific uremic arteriolopathy) with poorly healing R lower leg wound: Previously diagnosed. Off of coumadin, and instead is on off label dose of Eliquis 2.5 mg BID in setting of stage IV CKD as an alternative. Admitting team brings up good point that patient notes nausea/ vomiting with onset that correlates with receiving sodium thiosulfate infusion therapy. Nausea / vomiting is associated with this agent. Per my discussion with Dr Bosch patient has only had a few doses of the sodium thiosulfate, so difficult to determine for sure if this is implicated. Avoid / minimize Zofran treatment given use of amiodarone. After further discussion, hyperbaric oxygen therapy would be an alternative treatment for his wound. He had a previous large left lower extremity leg wound which is healed nicely. The current wound is at the posterior aspect of the right lower leg, and per my inspection is oval, and about 3 inches in largest diameter, per patient's opinion it is actually been trending toward healing. Hyperbaric oxygen therapy of course is to be administered with a retail caution in patients with a history of congestive heart failure. His most recent echocardiogram had been performed in March, at [facility] , with LVEF in the range of 45 to 50% at that time, severe aortic stenosis noted. I discussed his case via secure provider to provider Demar Text with Susan Moreland PA-C of the wound care clinic who has followed him in the past. I have arranged outpatient wound care clinic consult on 07/19/2021 at 8 AM. Severe Aortic stenosis: Unable to intervene on with ongoing leg wound. This is why it is felt to be critically important to attempt to try to promote wound healing as much as possible, hyperbaric oxygen referral in process. Also, proceeding with aortic valve intervention with likely hasten progression of his CKD and need for dialysis. Summary: Stable for discharge from cardiology perspective -Hold hydralazine -Hold prior to hospital isosorbide dinitrate -Resume torsemide 40 mg a.m., 20 mg every afternoon -Continue prior to hospital metoprolol dose -Discharge on amiodarone 200 mg twice daily -Refer to [place] wound care center, appointment tentatively scheduled for patient there on 07/19/2021, 8 AM, for consideration of hyperbaric oxygen therapy. Admission and Anticipated Discharge Date Admission Date: July 08, 2021 Subjective Patient seen in cardiology follow-up. Is feeling well. Nauseousness, vomiting, symptoms of orthostatic hypotension prompting his presentation via EMS have resolved. No episodes of recurrent VT overnight last night or thus far today, with amiodarone IV infusion having been discontinued at just after 12 noon on 07/11/2021. Physical Exam Constitutional: WD/WN, vitals as above Respiratory: normal respiratory effort, lungs clear to auscultation Cardiovascular: Rate/Rhythm: regular rate Heart Sounds: + murmur (2/6 systolic murmur) Extremities: + edema Gastrointestinal (Abdomen): normal bowel sounds, soft, nontender, no hepatosplenomegaly Results & Data ([facility]) Vital Signs (Past 12 Hours) Vital Signs Temp Pulse Pulse Resp BP Pulse Ox 07/12/21 08:12 36.5 C 66 16 149/62 H 95 07/12/21 07:01 66 07/12/21 03:36 36.9 C 68 18 142/87 H 96 (1) Aortic stenosis Cardiac valve disease etiology: nonrheumatic Qualified Code(s): I35.0 - Nonrheumatic aortic (valve) stenosis
--- NOTE | 2021-07-12 13:07 | Discharge Summary ---
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 For the past 1 month, patient has been receiving sodium thiosulfate infusions for treatment of calciphylaxis. He has had associated nausea, vomiting, poor appetite with these treatments. Patient also has been struggling with lightheadedness and dizziness, orthostasis. He was seen by PCP last week who instructed him to hold his hydralazine and isosorbide dinitrate. Today, patient had worsening lightheadedness and dizziness, near syncopal event. notes the blood pressure was very low. EMS was called and patient was brought to the ED for further evaluation. EMS rhythm strips observe the patient had 2 runs of nonsustained V. tach. Patient's defibrillator did not fire. Patient has a right calf wound that has been slowly been healing. Patient denies recent fevers and chills. No chest pain, shortness of breath, palpitations. Denies hematemesis, coffee-ground emesis, bright red blood in , dark tarry stools. No abdominal pain or diarrhea. In the ED, patient has remained hemodynamically stable. Labs are unremarkable/at patient's baseline. Cardiology has evaluated the patient and patient has been placed on amiodarone drip. Admission Exam Per Admitting Provider Constitutional: WD/WN, vitals as above + ill appearing (Chronically) Eyes: PERRL, conjunctivae normal, anicteric sclerae ENMT: external ear and nose normal, oropharynx normal Respiratory: normal respiratory effort, lungs clear to auscultation Cardiovascular: Rate/Rhythm: regular rate and regular rhythm Vessels: normal peripheral pulses Extremities: no edema Gastrointestinal (Abdomen): normal bowel sounds, soft, nontender, no hepatosplenomegaly Musculoskeletal: no cyanosis or clubbing, extremities motor strength 5/5 Skin: no rashes, warm and dry Wound noted to right posterior calf with necrotic base Neurologic: PERRL, EOMI, accommodation nl, no face palsy, no dysarthria Psychiatric: A+Ox3, euthymic affect Principal Diagnosis NSVT Dizziness/fluctuating blood pressure Aortic stenosis Calciphylaxis Chronic A. fib Discharge Exam GENERAL: Alert and oriented x3. NAD, on CPAP. HEENT: No pallor, no icterus. Pupils equal, round and reactive to light. Oral mucosa moist. NECK: No JVD, no neck masses. HEART: S1 and S2 heard. Regular rate and rhythm. systolic murmur at aortic and pulmonic area, no gallop. RESPIRATORY SYSTEM: Normal AP diameter. No accessory muscle use. No wheezing, no crackles. ABDOMEN: Soft, bowel sounds present, nontender, no distention. CENTRAL NERVOUS SYSTEM: No facial droop. Speech is clear. Obeys simple commands. Moves extremities. EXTREMITIES: No edema, no erythema seen. Chronic RLE posterior wound noted. No signs of infection. Discharge Data Allergies Allergy/AdvReac Type Severity Reaction Status Date / Time prednisone AdvReac Severe BSG'S OVER Verified 07/08/21 16:52 400-CONFUSION, DISORIENTED Consultations 07/08/21 17:14 ED Decision to Admit Stat 07/08/21 19:44 Consult Cardiology Routine Hospital Course (1) Ventricular tachycardia by electrocardiography: (2) Calciphylaxis of right lower extremity with nonhealing ulcer: 66-year-old gentleman with complex past medical history was being managed for the following while in hospital: (1) NSVT (nonsustained ventricular tachycardia): #. Dizziness/Hypotension Patient presented 07/08 from home with reports of worsening lightheadedness and dizziness. EMS rhythm strips demonstrated 2 separate runs of V. tach. Pt has 8 beats of V Tach in AM 07/10, no further V. tach from 07/11 afternoon per telemetry review. Pt hemodynamically stable, no chest pain Discussed with cardiology, DC digoxin/hydralazine/isosorbide, resume torsemide upon discharge, amiodarone has been added, patient will need cardiology follow- up in 2 to 3 weeks. Patient will need periodic monitoring of his liver function and thyroid function as an outpatient as long as he is on amiodarone. LFTs nl and Thyroid fxn fairly WNL. Has biventricular pacemaker AICD Pt's BP has been difficult to manage in the past fluctuating between low BP to Hypertensive urgency. Patient to measure his blood pressure 2 times a day, maintain a BP log, take it to primary care physician and cardiology when visiting as an outpatient. Patient to get blood work CMP and magnesium level done in a week time. (2) Aortic stenosis: (3) Nonischemic cardiomyopathy: Plan: EF 45-50% s/p AICD d/w cardiology, unable to intervene with ongoing leg wound, patient aware. (4) Calciphylaxis: Plan: Currently receiving sodium thiosulfate infusions M-F as OP. Recently on hold due to nausea and vomiting. Wound on right posterior calf appears to be healing well, wound nurse on board. Pt to follow up with Nephro/ wound care for ongoing care/ possibility of resuming sodium thiosulfate which is currently on hold. (5) CKD (chronic kidney disease) stage 4, GFR 15-29 ml/min: Plan: Creatinine 3.3 at presentation, at baseline (6) Hypertension: Plan: Has been having issues recently with orthostasis, likely due to hypovolemia from ongoing nausea and vomiting from infusions for treatment of calciphylaxis Minimize zofran use d/t amiodarone use. For meds adjustment, see above. (7) Chronic atrial fibrillation: Plan: Rate controlled on metoprolol Anticoagulated on Eliquis (reduced dose per cardiology) (8) DM type 2 (diabetes mellitus, type 2): Plan: Hgb A1c 10.7 05/2021 On Lantus and Humalog at home Pharmacy glycemic consult for inpatient management (9) ARPIT (obstructive sleep apnea): Plan: BiPAP/CPAP as per home settings Following instruction communicated at the point of discharge: Follow-up with your primary care physician within a week time. Follow-up with your cardiology in 2 to 3 weeks time. Follow-up with your nephrology as an outpatient regarding your ongoing management of calciphylaxis. Cardiology evaluated this admission, amiodarone has been added, your hydralazine and isosorbide are discontinued upon discharge. Your digoxin was discontinued prior to hospital treatment. Since you are on amiodarone, you will need outpatient monitoring of your thyroid and liver function, follow-up with your primary care physician as an outpatient for further evaluation and management. Measure your blood pressure 2 times a day, maintain a blood pressure log, take it to your primary care physician/cardiology when you visit them. Get your blood work CMP and magnesium level done in a week time. Since you are A1c was elevated, your diabetic medication has been changed. Please take Lantus 40 units in the morning and 35 units in the night. Please take your other insulin as prescribed. Take your medications as prescribed. Upon the right Total Time Total Time Spent Total Time Spent (In Minutes): 40 Discharge Plan Discharge Items Patient Disposition: Home - Self-Care Reason For Visit: V-TACH Discharge Diagnosis: NSVT Dizziness/fluctuating blood pressure Aortic stenosis Calciphylaxis Chronic A. fib Activity: Resume your previous activity Non-emergency contact: Primary Care Provider Call non-emergency contact if: you have any medication questions, your symptoms worsen and your temperature is above 101 Follow-up/Referrals: Kathleen Bosch MD, PhD [Physician] - (Date & Time 07/22/2021 1:00 PM Provider Kathleen Bosch MD Department Nephrology [facility] ) Myriam Sotelo MD [Outside Practitioners] - (Date & Time 07/16/2021 10:30 AM Provider Myriam Sotelo MD Department Palliative Medicine, [facility] ) Mirlande Melton MD [Primary Care Provider] - (Date & Time 07/19/2021 11:20 AM Provider Stella Gaines MD Department Family Medicine [facility] ) Diet: Carb Consistent or DM2, Heart Healthy and Low Sodium (2gm) Diet Texture: Easy to Chew Addtl Attending Provider Instructions: Follow-up with your primary care physician within a week time. Follow-up with your cardiology in 2 to 3 weeks time. Follow-up with your nephrology as an outpatient regarding your ongoing management of calciphylaxis. Cardiology evaluated this admission, amiodarone has been added, your hydralazine and isosorbide are discontinued upon discharge. Your digoxin was discontinued prior to hospital treatment. Since you are on amiodarone, you will need outpatient monitoring of your thyroid and liver function, follow-up with your primary care physician as an outpatient for further evaluation and management. Measure your blood pressure 2 times a day, maintain a blood pressure log, take it to your primary care physician/cardiology when you visit them. Get your blood work CMP and magnesium level done in a week time. Since you are A1c was elevated, your diabetic medication has been changed. Please take Lantus 40 units in the morning and 35 units in the night. Please take your other insulin as prescribed. Take your medications as prescribed. Pending Studies at Discharge: No Stand-Alone Forms: My [email or web address], Smoking Cessation Medications and DC Order Prescriptions: New amiodarone 200 mg Tablet 200 mg PO BIDM Qty: 60 RF: 0 Continued apixaban 2.5 mg tablet 2.5 mg PO BID RF: 0 aspirin 81 mg Tablet,Delayed Release (Dr/Ec) 81 mg PO QAM RF: 0 pantoprazole [Protonix] 40 mg Tablet,Delayed Release (Dr/Ec) 40 mg PO QAM RF: 0 Breo Ellipta 100-25 mcg/dose Blister With Device 1 inh INHALATION QAM RF: 0 ipratropium-albuterol 0.5 mg-3 mg(2.5 mg base)/3 mL Solution For Nebulization 3 ml INHALATION QID PRN (Reason: Shortness Of Breath Or Wheezing) RF: 0 albuterol sulfate [ProAir HFA] 90 mcg/actuation Hfa Aerosol Inhaler 2 puff INHALATION Q4H PRN (Reason: Shortness Of Breath Or Wheezing) RF: 0 fluticasone propionate [Flonase Allergy Relief] 50 mcg/actuation [place],Suspension 2 spray INTRANASAL DAILY PRN (Reason: Nasal Congestion) RF: 0 insulin lispro [Humalog KwikPen Insulin] 100 unit/mL insulin pen 0 sliding scale dose subcut TIDM RF: 0 atorvastatin 80 mg tablet 80 mg PO QPM RF: 0 torsemide 20 mg tablet See Rx Instructions .ROUTE .COMPLEX RF: 0 sodium chloride 0.9 % (flush) [Normal Saline Flush] Syringe 10 ml IV DAILY RF: 0 amlodipine [Norvasc] 5 mg Tablet 5 mg PO QAM Qty: 30 RF: 0 sennosides [Senna Laxative] 8.6 mg tablet 8.6 - 17.2 mg PO BID PRN (Reason: Constipation) RF: 0 promethazine 6.25 mg/5 mL syrup 6.25 mg PO Q6H PRN (Reason: NAUSEA/VOMITING) RF: 0 acetaminophen [Tylenol Extra Strength] 500 mg Tablet 500 - 1,000 mg PO DIRECTED PRN (Reason: Pain) RF: 0 fluticasone propion-salmeterol [Advair Diskus] 500-50 mcg/dose Blister With Device 1 inh INHALATION Q12H RF: 0 docusate sodium 100 mg capsule 100 mg PO BID PRN (Reason: Constipation) RF: 0 potassium chloride 20 mEq tablet extended release 20 meq PO DAILY RF: 0 oxycodone [OxyContin] 10 mg tablet,oral only,ext.rel.12 hr 10 mg PO BID RF: 0 metoprolol succinate [Toprol XL] 100 mg Tablet Extended Release 24 Hr 100 mg PO BID Qty: 60 RF: 1 oxycodone 5 mg tablet 5 mg PO Q4H PRN (Reason: Pain) RF: 0 Lantus Solostar U-100 Insulin 100 unit/mL (3 mL) insulin pen 35 unit SUBCUT HS RF: 0 Changed Lantus Solostar U-100 Insulin 100 unit/mL (3 mL) insulin pen 40 unit SUBCUT BID Qty: 15 RF: 0 Discontinued Lantus Solostar U-100 Insulin 100 unit/mL (3 mL) insulin pen 40 unit SUBCUT DAILY RF: 0 digoxin 125 mcg (0.125 mg) tablet 125 mcg PO DAILY RF: 0 isosorbide dinitrate 10 mg tablet 10 mg PO TID RF: 0 hydralazine 25 mg tablet 75 mg PO TID RF: 0 Discharge Orders: Discharge Order (Routine); Ordered 07/12/21 Ordered By: Karol Woody Admission Data Admit Date/Time: 07/08/21 17:19 Attending Provider: Karol Woody Admit Provider: Jc Marquez Primary Care Provider: Mirlande Melton Other Providers: Jc Marquez ; Parish Sethi
--- NOTE | 2021-07-12 13:42 | Pharmacy Report ---
Pharmacy Glycemic Short Note 2 - Date of Service July 12, 2021 - Glycemic Short BSG Results (Last 24 hours): 07/11/21 07/11/21 07/12/21 16:22 20:31 05:35 Glucose 193 H POC Glucose 89 240 H 07/12/21 07/12/21 07:31 11:29 Glucose POC Glucose 236 H 196 H OUTPATIENT ANTIDIABETIC REGIMEN: * Lantus 40 units QAM, Lantus 35 units HS, Humalog 7 units with breakfast, 27 units with lunch, 8 units with dinner * A1c - 10.7 05/2021 ASSESSMENT: 07/12/21: * BSGs labile yesterday, 200, 196, 89, and 240 mg/dL, fasting BSG of 236 mg/dL this morning * Received 92 units of insulin (30 units of basal and 62 units of prandial/correctional bolus) * Amiodarone gtt (containing dextrose) now discontinued * Will tighten AM Novolog parameters only and increase basal insulin in light of elevated fasting BSG 07/11/21: * BSGs well-controlled yesterday, 167, 112, 85, and 128 mg/dL, fasting BSG of 200 mg/dL this morning * Received 72 units of insulin yesterday (25 units of basal and 47 units of prandial/correctional bolus) * Will increase Lantus today in light of elevated fasting BSG, maintain current Novolog parameters * Continues on amiodarone gtt Background: * Patient admitted with NSVT, started on amiodarone drip. PMHx of CKD stage 4, htn, cardiomyopathy, afib, type 2 diabetes. Pharmacy consulted for glycemic management. Patient known to service from other admissions * Last admitted 05/2021. During previous admissions it appears patient does not require full home basal dose. BSGs go low if home basal dose utilized. Appears home regimen is basal heavy. Typically he only requires ~25-30 units/day of basal during hospital stay, but requires tight CF/CR * Will plan to utilize similar parameters as last visit. Fasting BSG 176 mg/dL - plan to give 15 units of Lantus this AM and then have a scale for HS for 10-15 units. Will use CF of 10, CR of 2 which was used last admission PLAN FOR INPATIENT GLYCEMIC CONTROL: * Hold outpatient oral diabetes medications * Basal insulin * Lantus 20 units SC daily * Lantus 15-20 units SC HS (see EHR for details) * Bolus insulin * NovoLog per scale ACHS or Q6hrs while NPO * Goal Range: Low 110 mg/dL - High 140 mg/dL * Correction Factor: 10 mg/dL/unit * Nutritional / Prandial insulin per carb ratio of 1 unit per 2.5 grams CHO consumed, 1 unit per 2 grams CHO consumed with breakfast
[2021-07-12] MEDS ORDERED: INSULIN ASPART PER UNIT SC SCH (16:30)
[2021-07-13] MEDS ORDERED: INSULIN ASPART PER UNIT SC SCH (07:30)
== END 2021-07-12 15:31 | disposition home or self-care (01) | DRG 309 ==
LOC: ED 15:41 → 2S 17:19 → SUATTDRO 17:19 → 2S 18:35
DX: I35.0 Nonrheumatic aortic (valve) stenosis; N18.4 Chronic kidney disease, stage 4 (severe); Z95.5 Presence of coronary angioplasty implant and graft; I47.2 Ventricular tachycardia; E11.622 Type 2 diabetes mellitus with other skin ulcer; I13.0 Hypertensive heart and chronic kidney disease with heart failure and stage 1 through stage 4 chronic kidney disease, or unspecified chronic kidney disease; J44.9 Chronic obstructive pulmonary disease, unspecified; Z79.4 Long term (current) use of insulin; Z79.01 Long term (current) use of anticoagulants; I42.8 Other cardiomyopathies; I48.20 Chronic atrial fibrillation, unspecified; K21.9 Gastro-esophageal reflux disease without esophagitis; I95.9 Hypotension, unspecified; E78.5 Hyperlipidemia, unspecified; G47.33 Obstructive sleep apnea (adult) (pediatric); I50.22 Chronic systolic (congestive) heart failure; Z79.82 Long term (current) use of aspirin; L97.915 Non-pressure chronic ulcer of unspecified part of right lower leg with muscle involvement without evidence of necrosis; D63.1 Anemia in chronic kidney disease; E11.51 Type 2 diabetes mellitus with diabetic peripheral angiopathy without gangrene; Z86.73 Personal history of transient ischemic attack (TIA), and cerebral infarction without residual deficits; Z88.8 Allergy status to other drugs, medicaments and biological substances; M61.461 Other calcification of muscle, right lower leg; E11.22 Type 2 diabetes mellitus with diabetic chronic kidney disease; F17.290 Nicotine dependence, other tobacco product, uncomplicated; I25.10 Atherosclerotic heart disease of native coronary artery without angina pectoris; I44.7 Left bundle-branch block, unspecified; Z95.810 Presence of automatic (implantable) cardiac defibrillator; E11.40 Type 2 diabetes mellitus with diabetic neuropathy, unspecified

== ENCOUNTER 2021-07-21 15:15 | Observation (INO) ==
--- NOTE | 2021-07-21 15:37 | Emergency Department Note ---
Impression & Plan Ventricular tachycardia, non-sustained, CKD (chronic kidney disease) stage 4, GFR 15-29 ml/min, Elevated troponin I level ED Provider Note NAME: NIRANJAN VILLALTA AGE: 66 SEX: M : 1955 ARRIVES VIA: Walk-In INFORMANT: Patient, ED PROVIDER(S): Hai Miller MD Chief Complaint: SOB, dizziness HPI: Patient presents due to concern for worsening shortness of breath. The patient has had some intermittent symptoms over the last several days but this time it has been more constant with associated lightheadedness and dizziness. Patient does complain of some orthopnea as well as dyspnea on exertion. The patient did have a recent admission for V. tach. Patient has been compliant with his medications and took his morning meds. Patient is on a fluid restriction but states that he is maintaining this and still trying to hydrate as best he can. Patient denies any fevers or chills. Patient denies any chest pains. Patient denies any change in leg swelling as he does have a little bit of left lower extremity that is always greater than right. Patient is anticoagulated on Eliquis and is on amiodarone. Patient denies any headache or neck pain. Patient denies any shocks being administered as the patient does have a defibrillator pacemaker. Patient had presented most recently due to concern for lightheadedness and dizziness. The patient at that time had nonsustained ventricular tachycardia. Patient has nonischemic cardiomyopathy aortic stenosis. Most recent EF of 45 to 50%. Patient had had a change of adding amiodarone but discontinuing hydralazine and isosorbide. The patient's digoxin was also did discontinued. Patient is unable to have his aortic stenosis intervened upon giving ongoing leg wound) proceeding with his intervention would likely hasten progression of CKD need for dialysis per cardiology. ROS: See HPI for pertinent positives and negatives. A total of 10 systems were r eviewed and otherwise negative. Past medical history: See below Surgical history: See below Social history: See below Physical Exam: GENERAL: Fatigue in appearance, nontoxic. EYE EXAM: Normal conjunctiva. PERRL, no anisocoria and EOM's grossly intact w/o pain. OROPHARYNX: Moist mucus membranes. Grossly normal dentition. NECK: Supple, no nuchal rigidity, no adenopathy, non-tender. No signs of meningismus. LUNGS: Clear to auscultation. Normal chest wall mechanics. HEART: NSR, no MRG. ABDOMEN: Abdomen soft, non-tender, normo-active bowel sounds, no masses, no rebound or guarding. BACK: No CVA TTP. SKIN: No rashes and no bruising. UPPER EXTREMITIES: Upper extremities are grossly normal. LOWER EXTREMITIES: Grossly normal, no edema. NEURO EXAM: A&O x3, cranial nerves II-XII grossly intact, normal speech, moves all 4 extremities on command w/o issue. Good finger to nose, no drift, no sensory deficits. Differential diagnoses: Reactive airway disease, pneumonia, pneumothorax, COPD, CHF, infections, cardiac ischemia, pulmonary embolism, musculoskeletal, gastrointestinal, as well as other pathologies. Course: Patient was seen and evaluated the bedside. Full history physical exam was performed. EKG interpreted by me V paced rhythm, rate of 64, wide QRS, Q waves throughout. Imaging Studies: See Below Cardiac monitoring: An order was placed for continuous cardiac monitoring. The monitor shows a rate of 65 with paced with occasional runs of nonsustained V. tach rhythm. MDM: Patient presents due to concern for dizziness and lightheadedness with associated shortness of breath. It is difficult as the patient does have a known history of aortic stenosis in terms of his volume status. The patient does not appear overtly volume overloaded and the patient does appear to have clear breath sounds bilaterally. Blood work was obtained. I did have the patient's defibrillator pacemaker interrogated. I did receive a call from the rep states that there were no noted shocks delivered and there were no sustained episodes of V. tach. Battery life is appropriate in approximately a year and a half in future longevity. Patient has a normal white count with mild anemia at 10.9. The patient's platelet count is unremarkable. Kidney function grossly unchanged from prior with a known history of CKD. The patient's VBG does not show any hypercarbia. Troponin is detectable tracely elevated but is improved compared to prior. Covid negative. Chest x-ray clear. I did speak the on-call training personnel supervisor Dr. Zurita who stated that he would recommend continued amiodarone drip at this time as the patient has not required any shocks. The patient has had episodes of nonsustained V. tach. The been in the room and they have been ongoing the patient is awake alert following commands. Dr. Graves is to be rounding tomorrow and Dr. Zurita recommends just keeping the patient on his continued medications at this time. As the patient is due for his evening amiodarone dose I did order his IV instead of p.o. I did speak with the on-call hospitalist and the patient was admitted to the medicine service by Dr. Sewell. Critical Care: I have personally spent 46 minutes of critical care time in direct management of this patient. This includes bedside care, interpretation of diagnostic studies, and testing, discussion with consultants, patient, and family members, and other require inpatient management activities. This 46 minutes is in excess of all separately billable procedures. Past Med/Surg History Medical History Aortic stenosis Severe aortic stenosis vs pseudo aortic stenosis due to low output per cardio note from 12/2019 ECHO Asthma Atrial fibrillation on warfarin CAD (coronary artery disease) "nonobstructive" Chronic anemia Chronic kidney disease Stage 4, under surveillance by Dr. Mcdermott (no dialysis at this time) Chronic systolic (congestive) heart failure COPD (chronic obstructive pulmonary disease) Diabetic neuropathy DM type 2 (diabetes mellitus, type 2) IDDM Dyslipidemia Gall stones GERD (gastroesophageal reflux disease) History of COVID-19 Dx 08/05/20(hospitalized at [place]) > symptoms at time of cough, SOB, generalized weakness, n/v/d, loss of taste/smell > "resolved" History of multiple pulmonary nodules Hypertension LBBB (left bundle branch block) Nonischemic cardiomyopathy S/p BIV AICD in place; follows with Dr. Graves Presence of combination internal cardiac defibrillator (ICD) and pacemaker Implanted 5+ years ago, [employer], last check 07/2020 Pulmonary HTN PVD (peripheral vascular disease) Sleep apnea + nocturnal hypoxia > BIPAP + 2L O2 HS Stroke 11/2019 > residual speech difficulty/short term memory issues Surgical History H/O cardiac catheterization Non nonobstructive CAD on 2016 cardiac cath H/O total adrenalectomy Left (25 years ago) History of colonoscopy History of esophagogastroduodenoscopy (EGD) S/P debridement (01/08/21) Left Lower Extremity Medial and Lateral excisional Debridement ( greater than 20 sq. 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 How many Children do You have: 1 Feels Safe at Home: Yes Assistive Devices: None Allergies Allergies Allergy/AdvReac Type Severity Reaction Status Date / Time prednisone AdvReac Severe BSG'S OVER Verified 07/21/21 16:27 400-CONFUSION, DISORIENTED Home Meds Home Medications Medication Instructions Recorded Confirmed aspirin 81 mg tablet,delayed 81 mg PO QAM 02/05/18 07/21/21 release pantoprazole 40 mg tablet,delayed 40 mg PO QAM 02/05/18 07/21/21 release (Protonix) albuterol sulfate 90 mcg/actuation 2 puff INHALATION Q4H PRN 08/01/18 07/21/21 aerosol inhaler (ProAir HFA) fluticasone propionate 50 2 spray INTRANASAL DAILY PRN 08/01/18 07/21/21 mcg/actuation nasal spray,suspension (Flonase Allergy Relief) ipratropium 0.5 mg-albuterol 3 mg 3 ml INHALATION QID PRN 08/01/18 07/21/21 (2.5 mg base)/3 mL nebulization soln fluticasone furoate 100 1 inh INHALATION QAM 03/02/20 07/21/21 mcg-vilanterol 25 mcg/dose inhalation powder (Breo Ellipta) atorvastatin 80 mg tablet 80 mg PO QPM 09/17/20 07/21/21 insulin lispro 100 unit/mL 0 sliding scale dose SUBCUT TIDM 01/17/21 07/21/21 subcutaneous pen (Humalog KwikPen (U-100) Insulin) apixaban 2.5 mg tablet 2.5 mg PO BID 03/01/21 07/21/21 torsemide 20 mg tablet See Rx Instructions .ROUTE .COMPLEX 04/24/21 07/21/21 sodium chloride 0.9 % (flush) 10 ml IV DAILY 05/26/21 07/21/21 (Normal Saline Flush) acetaminophen 500 mg tablet 500 - 1,000 mg PO DIRECTED PRN 07/03/21 07/21/21 (Tylenol Extra Strength) docusate sodium 100 mg capsule 100 mg PO BID PRN 07/03/21 07/21/21 fluticasone 500 mcg-salmeterol 50 1 inh INHALATION Q12H 07/03/21 07/21/21 mcg/dose blistr powdr for inhalation (Advair Diskus) oxycodone 10 mg tablet,crush 10 mg PO BID 07/03/21 07/21/21 resistant,extended release 12 hr (OxyContin) potassium chloride 20 mEq 20 meq PO DAILY 07/03/21 07/21/21 tablet,extended release promethazine 6.25 mg/5 mL oral 6.25 mg PO Q6H PRN 07/03/21 07/21/21 syrup sennosides 8.6 mg tablet (Senna 8.6 - 17.2 mg PO BID PRN 07/03/21 07/21/21 Laxative) insulin glargine 100 unit/mL (3 35 unit SUBCUT HS 07/08/21 07/21/21 mL) subcutaneous pen (Lantus Solostar U-100 Insulin) oxycodone 5 mg tablet 5 mg PO Q4H PRN 07/08/21 07/21/21 Previous Rx's Medication Instructions Recorded metoprolol succinate 100 mg 100 mg PO BID #60 tab 08/14/20 tablet,extended release 24 hr (Toprol XL) amlodipine 5 mg tablet (Norvasc) 5 mg PO QAM #30 tab 05/30/21 amiodarone 200 mg tablet 200 mg PO BIDM #60 tab 07/12/21 insulin glargine 100 unit/mL (3 40 unit SUBCUT BID #15 ml 07/12/21 mL) subcutaneous pen (Lantus Solostar U-100 Insulin) Results & Data (ED) Vital Signs Vital Signs - 24 hr 07/21/21 15:18 07/21/21 15:32 07/21/21 15:33 Temperature 36.9 C Temperature Source Temporal Artery Scan Pulse Rate 70 Pulse Rate [Apical] Respiratory Rate 19 Respiratory Effort / Characteristics Non-Labored Spontaneous Respiratory Depth Normal Blood Pressure 141/86 H Blood Pressure [Left Arm] Blood Pressure Mean 104 Blood Pressure Mean [Left Arm] Pulse Oximetry 96 87 L 93 Oxygen Delivery Method Room Air Nasal Cannula Nasal Cannula Oxygen Flow Rate 0 2 Sepsis Recent Fever Within 48 Hours No Sepsis New/Unexplained Change in Mental Status N/A Sepsis Action Taken by Nursing No Action Required Oxygen Flow Rate - Titration 2 Pulse Oximetry Post Tiitration 93 07/21/21 17:15 Temperature Temperature Source Pulse Rate Pulse Rate [Apical] 76 Respiratory Rate 15 Respiratory Effort / Characteristics Respiratory Depth Blood Pressure Blood Pressure [Left Arm] 136/94 Blood Pressure Mean Blood Pressure Mean [Left Arm] 108 Pulse Oximetry 95 Oxygen Delivery Method Room Air Oxygen Flow Rate Sepsis Recent Fever Within 48 Hours Sepsis New/Unexplained Change in Mental Status Sepsis Action Taken by Nursing Oxygen Flow Rate - Titration Pulse Oximetry Post Tiitration Home Medications Current Medication List: was personally reviewed by me Laboratory Data Attestation: I reviewed the patient's lab results. Result diagrams: 07/21/21 15:45 07/21/21 15:45 Lab Results 07/21/21 07/21/21 07/21/21 Range/Units 15:45 15:45 15:45 WBC 6.38 (4.8-10.8) K/uL RBC 3.94 L (4.7-6.1) M/uL Hgb 10.9 L (14.0-18.0) g/dL Hct 33.2 L (42-52) % MCV 84.3 (80-100) fL MCH 27.7 (25-34) pg MCHC 32.8 (32-36) g/dL RDW Std Deviation 44.9 (36.4-46.3) fL RDW Coeff of Joey 14.5 (11.5-14.5) % Plt Count 151 (130-400) K/uL MPV 8.9 (7.4-10.4) fL Immature Gran % (Auto) 0.3 % Neut % (Auto) 71.9 % Lymph % (Auto) 9.2 % [place] % (Auto) 15.0 % Eos % (Auto) 3.4 % Baso % (Auto) 0.2 % Neut # (Auto) 4.58 (1.4-6.5) K/uL Lymph # (Auto) 0.59 L (1.2-3.4) K/uL [place] # (Auto) 0.96 H (0.11-0.59) K/uL Eos # (Auto) 0.22 (0-0.5) K/uL Baso # (Auto) 0.01 (0-0.2) K/uL Immature Gran # (Auto) 0.02 (0.00-0.02) K/uL PT 11.4 (9.0-12.0) Seconds INR 1.1 (0.9-1.1) APTT 29.9 (21.0-31.0) Seconds PTT Ratio 1.1 VBG pH (7.36-7.41) VBG pCO2 (38-50) mmHg VBG pO2 mmHg VBG HCO3 mmol/L VBG O2 Saturation % VBG Base Excess mEq/L Barometric Pressure mm/Hg Sodium 136 (136-145) mmol/L Potassium 3.9 (3.5-5.1) mmol/L Chloride 96 L (98-107) mmol/L Carbon Dioxide 30 (21-32) mmol/L Anion Gap 10 (3-11) BUN 45 H (6-23) mg/dl Creatinine 3.26 H (0.6-1.4) mg/dl Est Cr Clr Drug Dosing 25.3 ml/min Est GFR ( Amer) 21.5 ml/min Est GFR (Non-Af Amer) 18.6 ml/min BUN/Creatinine Ratio 13.8 (10-20) Glucose 198 H (70-99(Fasting)) mg/dl Calcium 9.0 (8.5-10.1) mg/dl Phosphorus 3.2 (2.5-4.9) mg/dl Magnesium 1.8 (1.7-2.4) mg/dl Total Bilirubin 0.7 (0.2-1.0) mg/dl AST 14 (13-39) U/L ALT 15 (7-52) U/L Alkaline Phosphatase 115 H (34-104) U/L Troponin I 0.06 H* (0-0.04) ng/ml Total Protein 6.7 (6.0-8.3) gm/dl Albumin 3.5 (3.4-5.0) gm/dl Globulin 3.2 (2.5-4.0) gm/dl Albumin/Globulin Ratio 1.1 (0.9-2) SARS-CoV-2, RNA, NAAT (NEGATIVE) 07/21/21 07/21/21 Range/Units 15:45 16:07 WBC (4.8-10.8) K/uL RBC (4.7-6.1) M/uL Hgb (14.0-18.0) g/dL Hct (42-52) % MCV (80-100) fL MCH (25-34) pg MCHC (32-36) g/dL RDW Std Deviation (36.4-46.3) fL RDW Coeff of Joey (11.5-14.5) % Plt Count (130-400) K/uL MPV (7.4-10.4) fL Immature Gran % (Auto) % Neut % (Auto) % Lymph % (Auto) % [place] % (Auto) % Eos % (Auto) % Baso % (Auto) % Neut # (Auto) (1.4-6.5) K/uL Lymph # (Auto) (1.2-3.4) K/uL [place] # (Auto) (0.11-0.59) K/uL Eos # (Auto) (0-0.5) K/uL Baso # (Auto) (0-0.2) K/uL Immature Gran # (Auto) (0.00-0.02) K/uL PT (9.0-12.0) Seconds INR (0.9-1.1) APTT (21.0-31.0) Seconds PTT Ratio VBG pH 7.46 H (7.36-7.41) VBG pCO2 43 (38-50) mmHg VBG pO2 53 mmHg VBG HCO3 30 mmol/L VBG O2 Saturation 85.9 % VBG Base Excess 5.4 mEq/L Barometric Pressure 728.7 mm/Hg Sodium (136-145) mmol/L Potassium (3.5-5.1) mmol/L Chloride (98-107) mmol/L Carbon Dioxide (21-32) mmol/L Anion Gap (3-11) BUN (6-23) mg/dl Creatinine (0.6-1.4) mg/dl Est Cr Clr Drug Dosing ml/min Est GFR ( Amer) ml/min Est GFR (Non-Af Amer) ml/min BUN/Creatinine Ratio (10-20) Glucose (70-99(Fasting)) mg/dl Calcium (8.5-10.1) mg/dl Phosphorus (2.5-4.9) mg/dl Magnesium (1.7-2.4) mg/dl Total Bilirubin (0.2-1.0) mg/dl AST (13-39) U/L ALT (7-52) U/L Alkaline Phosphatase (34-104) U/L Troponin I (0-0.04) ng/ml Total Protein (6.0-8.3) gm/dl Albumin (3.4-5.0) gm/dl Globulin (2.5-4.0) gm/dl Albumin/Globulin Ratio (0.9-2) SARS-CoV-2, RNA, NAAT NEGATIVE (NEGATIVE) Administered Medications Discontinued Medications Amiodarone HCl/Dextrose (Nexterone / D5w) 150 mg in 100 mls @ 600 mls/hr IV NOW ONE Stop: 07/21/21 17:24 Last Admin: 07/21/21 17:37 Dose: 600 mls/hr Documented by: [id number] Cosigned by: [id number] Imaging Data Radiologist's Impression: Chest X-Ray 07/21/21 15:27 XR chest 1V portable CLINICAL HISTORY: Dyspnea COMPARISON STUDY: Chest radiograph July 08, 2021. FINDINGS: A left subclavian biventricular pacer/AICD is in place. Moderate cardiomegaly is unchanged. No evidence for pulmonary edema or pneumonia. There is no pneumothorax or pleural effusion. IMPRESSION: No acute cardiopulmonary findings. No change in appearance of the chest. ACT 112: Negative or not required by law. Electronically signed by: Balwinder Juarez M.D. 07/21/2021 3:52 PM Discharge Plan Visit Data Chief Complaint: Shortness of Breath/Dyspnea Stated Complaint: SOB ED Provider: Hai Miller Discharge Problem: Ventricular tachycardia, non-sustained, CKD (chronic kidney disease) stage 4, GFR 15-29 ml/min, Elevated troponin I level Patient Disposition: Admitted As Inpatient Forms Stand Alone Forms: My [facility] Prescriptions Prescriptions: No Action apixaban 2.5 mg tablet 2.5 mg PO BID RF: 0 aspirin 81 mg Tablet,Delayed Release (Dr/Ec) 81 mg PO QAM RF: 0 pantoprazole [Protonix] 40 mg Tablet,Delayed Release (Dr/Ec) 40 mg PO QAM RF: 0 Breo Ellipta 100-25 mcg/dose Blister With Device 1 inh INHALATION QAM RF: 0 ipratropium-albuterol 0.5 mg-3 mg(2.5 mg base)/3 mL Solution For Nebulization 3 ml INHALATION QID PRN (Reason: Shortness Of Breath Or Wheezing) RF: 0 albuterol sulfate [ProAir HFA] 90 mcg/actuation Hfa Aerosol Inhaler 2 puff INHALATION Q4H PRN (Reason: Shortness Of Breath Or Wheezing) RF: 0 fluticasone propionate [Flonase Allergy Relief] 50 mcg/actuation [place],Suspension 2 spray INTRANASAL DAILY PRN (Reason: Nasal Congestion) RF: 0 insulin lispro [Humalog KwikPen Insulin] 100 unit/mL insulin pen 0 sliding scale dose subcut TIDM RF: 0 atorvastatin 80 mg tablet 80 mg PO QPM RF: 0 torsemide 20 mg tablet See Rx Instructions .ROUTE .COMPLEX RF: 0 sodium chloride 0.9 % (flush) [Normal Saline Flush] Syringe 10 ml IV DAILY RF: 0 amlodipine [Norvasc] 5 mg Tablet 5 mg PO QAM Qty: 30 RF: 0 sennosides [Senna Laxative] 8.6 mg tablet 8.6 - 17.2 mg PO BID PRN (Reason: Constipation) RF: 0 promethazine 6.25 mg/5 mL syrup 6.25 mg PO Q6H PRN (Reason: NAUSEA/VOMITING) RF: 0 acetaminophen [Tylenol Extra Strength] 500 mg Tablet 500 - 1,000 mg PO DIRECTED PRN (Reason: Pain) RF: 0 fluticasone propion-salmeterol [Advair Diskus] 500-50 mcg/dose Blister With Device 1 inh INHALATION Q12H RF: 0 docusate sodium 100 mg capsule 100 mg PO BID PRN (Reason: Constipation) RF: 0 potassium chloride 20 mEq tablet extended release 20 meq PO DAILY RF: 0 oxycodone [OxyContin] 10 mg tablet,oral only,ext.rel.12 hr 10 mg PO BID RF: 0 metoprolol succinate [Toprol XL] 100 mg Tablet Extended Release 24 Hr 100 mg PO BID Qty: 60 RF: 1 oxycodone 5 mg tablet 5 mg PO Q4H PRN (Reason: Pain) RF: 0 Lantus Solostar U-100 Insulin 100 unit/mL (3 mL) insulin pen 35 unit SUBCUT HS RF: 0 amiodarone 200 mg Tablet 200 mg PO BIDM Qty: 60 RF: 0 Lantus Solostar U-100 Insulin 100 unit/mL (3 mL) insulin pen 40 unit SUBCUT BID Qty: 15 RF: 0 Referrals Referrals: Mirlande Melton MD [Primary Care Provider] -
--- NOTE | 2021-07-21 15:53 | XRay Report ---
XR chest 1V portable CLINICAL HISTORY: Dyspnea COMPARISON STUDY: Chest radiograph July 08, 2021. FINDINGS: A left subclavian biventricular pacer/AICD is in place. Moderate cardiomegaly is unchanged. No evidence for pulmonary edema or pneumonia. There is no pneumothorax or pleural effusion. IMPRESSION: No acute cardiopulmonary findings. No change in appearance of the chest. ACT 112: Negative or not required by law. Electronically signed by: Balwinder Juarez M.D. 07/21/2021 3:52 PM
[2021-07-21 16:00] LABS: Basophils # (auto) 0.01 K/uL (0-0.2); Basophils % (auto) 0.2 %; Eosinophils # (auto) 0.22 K/uL (0-0.5); Eosinophils % (auto) 3.4 %; Hematocrit (blood only) 33.2 % (42-52); Hemoglobin 10.9 g/dL (14.0-18.0); Immature Granulocytes # (auto) 0.02 K/uL (0.00-0.02); Immature Granulocytes % (auto) 0.3 %; Lymphocytes # (auto) 0.59 K/uL (1.2-3.4); Lymphocytes % (auto) 9.2 %; Mean Corpuscular Hemoglobin 27.7 pg (25-34); Mean Corpuscular Hgb Conc 32.8 g/dL (32-36); Mean Corpuscular Volume 84.3 fL (80-100); Mean Platelet Volume 8.9 fL (7.4-10.4); Monocytes # (auto) 0.96 K/uL (0.11-0.59); Neutrophils # (auto) 4.58 K/uL (1.4-6.5); Neutrophils % (auto) 71.9 %; Platelet Count 151 K/uL (130-400); RDW Coefficient of Variation 14.5 % (11.5-14.5); RDW Standard Deviation 44.9 fL (36.4-46.3); Red Blood Count 3.94 M/uL (4.7-6.1); White Blood Count 6.38 K/uL (4.8-10.8)
[2021-07-21 16:21] LABS: Base Excess VBG 5.4 mEq/L; Oxygen Saturation VBG 85.9 %; pH VBG 7.46 (7.36-7.41)
[2021-07-21 16:36] LABS: Albumin Globulin Ratio 1.1 (0.9-2); Albumin Level 3.5 gm/dl (3.4-5.0); BUN Creatinine Ratio 13.8 (10-20); Bilirubin,Total 0.7 mg/dl (0.2-1.0); Creatinine Clr Calc Pharmacy 25.3 ml/min; Est GFR (African American) 21.5 ml/min; Est GFR (Non-African American) 18.6 ml/min; Globulin 3.2 gm/dl (2.5-4.0); INR 1.1 (0.9-1.1); Magnesium 1.8 mg/dl (1.7-2.4); Partial Thromboplastin Ratio 1.1; Partial Thromboplastin Time 29.9 Seconds (21.0-31.0); Phosphorus 3.2 mg/dl (2.5-4.9); Potassium 3.9 mmol/L (3.5-5.1); Prothrombin Time 11.4 Seconds (9.0-12.0); Total Protein 6.7 gm/dl (6.0-8.3)
[2021-07-21 16:38] LABS: Troponin I 0.06 ng/ml (0-0.04)
[2021-07-21] MEDS ORDERED: AMIODARONE / D5W 150 MG/100 ML BAG IV ONE (17:15)
[2021-07-21] MEDS ORDERED: 0.2 MICRON FILTER SET 1 EA IV ONE (17:18)
[2021-07-21] MEDS ORDERED: AMIODARONE / D5W 150 MG/100 ML BAG IV STA (17:18)
--- NOTE | 2021-07-21 17:20 | History & Physical Report ---
Date of Service July 21, 2021 Assessment & Plan (1) Dyspnea: (2) Severe aortic stenosis: (3) Ventricular tachycardia, non-sustained: (4) CKD (chronic kidney disease) stage 4, GFR 15-29 ml/min: (5) Calciphylaxis of right lower extremity with nonhealing ulcer: (6) Dizziness: (7) Nonischemic cardiomyopathy: (8) DM type 2 (diabetes mellitus, type 2): (9) Chronic atrial fibrillation: (10) ARPIT (obstructive sleep apnea): Plan: Shortness of breath, dizziness with orthopnea- likely from severe , as well as NSVT episodes. Telemetry, cardiology evaluation, pacemaker interrogation, keep electrolytes and volume status at goal. Severe aortic stenosis-unable to get valve surgery because of unhealing right leg wound. Looks euvolemic on exam but orthopnea suggests possible mild volume overload. On torsemide, will continue. check BNP NSVT status post biventricular AICD-continue metoprolol, monitor on telemetry, pacemaker interrogation, consult cardiology. Maintain electrolytes K >4, Mg>2. Patient recently had echocardiogram, no need to repeat. Nonischemic cardiomyopathy-EF 45- 50% status post AICD. Calciphylaxis right lower extremity with nonhealing ulcer- patient was on sodium thiosulfate infusion as outpatient but stopped due to N/V, and now on regular wound care last seen on Thursday. There was discussion about hyperbaric oxygen therapy referral to hasten the wound healing so cardiac issues can be addressed. Continue local wound care. Consult WOCN. CKD 4-creatinine baseline 3.3 Avoid nephrotoxins. Chronic atrial fibrillation- on metoprolol and On amiodarone. On Eliquis for anticoagulation. Diabetes mellitus type II-A1c 10.7. On insulin at home lantus 30 bid along with novolog SSI usually 25 tid with meals. States good glycemic control at home. Continue, adjust as indicated. Pharmacy glycemic consult if needed ARPIT-continue CPAP Elevated trop- minimially elevated chronically. No chest pain or ischemic symptoms. DVT prophylaxis-Eliquis Disposition- PCU on telemetry Updated at bedside. Patient opted for full code. History of Present Illness Chief Complaint: Shortness of breath, dizziness Primary Care Provider: Mirlande Pickett MD 66-year-old male with history of severe aortic stenosis, nonischemic cardiomyopathy/ NSVT status post biventricular ICD, CKD 4, chronic atrial fibrillation on Eliquis, calciphylaxis right lower extremity with nonhealing ulcer, diabetes type 2 on insulin, ARPIT presented to ED with worsening shortness of breath and dizziness over the past 2 days. Patient recently admitted to the hospital 07/08-07/12 for lightheadedness and dizziness and multiple medications were changed during admission. He was doing fine since discharge until 2 days back when he experienced worsening shortness of breath and dizziness. Shortness of breath even at rest, lasting for couple hours, more with exertion. Also with orthopnea that he has to sleep in recliner. States oxygen saturation has been normal with pulse oximeter at home. Also has associated dizziness. States compliance with medications including diuretics and Eliquis. States weight about the same. Denies any increase in swelling. Has good urine output. Denies any fever, chills, wheezing, chest tightness, chest pain, URI symptoms, cough. Denies any prior history of VTE. Denies any shock from ICD ever. In ED, patient was afebrile, stable, saturating well in room air, lying comfortably in bed. States he follows up with wound care for calciphylaxis once a month now and last seen on Thursday. He takes care of it every day at home with local wound care. ED patient spoke with cardiology on-call. Allergies Allergy/AdvReac Type Severity Reaction Status Date / Time prednisone AdvReac Severe BSG'S OVER Verified 07/21/21 16:27 400-CONFUSION, DISORIENTED Home Medications Medication Instructions Recorded Confirmed Type aspirin 81 mg tablet,delayed 81 mg PO QAM 02/05/18 07/21/21 History release pantoprazole 40 mg tablet,delayed 40 mg PO QAM 02/05/18 07/21/21 History release (Protonix) albuterol sulfate 90 mcg/actuation 2 puff INHALATION Q4H PRN 08/01/18 07/21/21 History aerosol inhaler (ProAir HFA) fluticasone propionate 50 2 spray INTRANASAL DAILY PRN 08/01/18 07/21/21 History mcg/actuation nasal spray,suspension (Flonase Allergy Relief) ipratropium 0.5 mg-albuterol 3 mg 3 ml INHALATION QID PRN 08/01/18 07/21/21 History (2.5 mg base)/3 mL nebulization soln fluticasone furoate 100 1 inh INHALATION QAM 03/02/20 07/21/21 History mcg-vilanterol 25 mcg/dose inhalation powder (Breo Ellipta) metoprolol succinate 100 mg 100 mg PO BID #60 tab 08/14/20 07/21/21 Rx tablet,extended release 24 hr (Toprol XL) atorvastatin 80 mg tablet 80 mg PO QPM 09/17/20 07/21/21 History insulin lispro 100 unit/mL 0 sliding scale dose SUBCUT TIDM 01/17/21 07/21/21 History subcutaneous pen (Humalog KwikPen (U-100) Insulin) apixaban 2.5 mg tablet 2.5 mg PO BID 03/01/21 07/21/21 History torsemide 20 mg tablet See Rx Instructions .ROUTE .COMPLEX 04/24/21 07/21/21 History sodium chloride 0.9 % (flush) 10 ml IV DAILY 05/26/21 07/21/21 History (Normal Saline Flush) amlodipine 5 mg tablet (Norvasc) 5 mg PO QAM #30 tab 05/30/21 07/21/21 Rx acetaminophen 500 mg tablet 500 - 1,000 mg PO DIRECTED PRN 07/03/21 07/21/21 History (Tylenol Extra Strength) docusate sodium 100 mg capsule 100 mg PO BID PRN 07/03/21 07/21/21 History fluticasone 500 mcg-salmeterol 50 1 inh INHALATION Q12H 07/03/21 07/21/21 History mcg/dose blistr powdr for inhalation (Advair Diskus) oxycodone 10 mg tablet,crush 10 mg PO BID 07/03/21 07/21/21 History resistant,extended release 12 hr (OxyContin) potassium chloride 20 mEq 20 meq PO DAILY 07/03/21 07/21/21 History tablet,extended release promethazine 6.25 mg/5 mL oral 6.25 mg PO Q6H PRN 07/03/21 07/21/21 History syrup sennosides 8.6 mg tablet (Senna 8.6 - 17.2 mg PO BID PRN 07/03/21 07/21/21 History Laxative) insulin glargine 100 unit/mL (3 35 unit SUBCUT HS 07/08/21 07/21/21 History mL) subcutaneous pen (Lantus Solostar U-100 Insulin) oxycodone 5 mg tablet 5 mg PO Q4H PRN 07/08/21 07/21/21 History amiodarone 200 mg tablet 200 mg PO BIDM #60 tab 07/12/21 07/21/21 Rx insulin glargine 100 unit/mL (3 40 unit SUBCUT BID #15 ml 07/12/21 07/21/21 Rx mL) subcutaneous pen (Lantus Solostar U-100 Insulin) Past Med/Surg History Medical History Aortic stenosis Severe aortic stenosis vs pseudo aortic stenosis due to low output per cardio note from 12/2019 ECHO Asthma Atrial fibrillation on warfarin CAD (coronary artery disease) "nonobstructive" Chronic anemia Chronic kidney disease Stage 4, under surveillance by Dr. Mcdermott (no dialysis at this time) Chronic systolic (congestive) heart failure COPD (chronic obstructive pulmonary disease) Diabetic neuropathy DM type 2 (diabetes mellitus, type 2) IDDM Dyslipidemia Gall stones GERD (gastroesophageal reflux disease) History of COVID-19 Dx 08/05/20(hospitalized at [facility]) > symptoms at time of cough, SOB, generalized weakness, n/v/d, loss of taste/smell > "resolved" History of multiple pulmonary nodules Hypertension LBBB (left bundle branch block) Nonischemic cardiomyopathy S/p BIV AICD in place; follows with Dr. Graves Presence of combination internal cardiac defibrillator (ICD) and pacemaker Implanted 5+ years ago, [employer], last check 07/2020 Pulmonary HTN PVD (peripheral vascular disease) Sleep apnea + nocturnal hypoxia > BIPAP + 2L O2 HS Stroke 11/2019 > residual speech difficulty/short term memory issues Surgical History H/O cardiac catheterization Non nonobstructive CAD on 2016 cardiac cath H/O total adrenalectomy Left (25 years ago) History of colonoscopy History of esophagogastroduodenoscopy (EGD) S/P debridement (01/08/21) Left Lower Extremity Medial and Lateral excisional Debridement ( greater than 20 sq. 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 Chest: Clear breath sounds bilaterally, no wheezes or crackles CVS: Irregular, normal heart sounds, systolic ejection murmur Abdomen: Soft, non tender, not distended, normal bowel sounds Neuro: Awake, alert, oriented, conversing well, non focal Extremities: No cyanosis, clubbing or edema. RLE wound with Mepilex Results & Data Results & Data ([facility]) Vital Signs (Past 12 Hours) Vital Signs Temp Pulse Resp BP Pulse Ox 07/21/21 15:33 93 07/21/21 15:32 87 L 07/21/21 15:18 36.9 C 70 19 141/86 H 96 Laboratory Results Short CBC 07/21/21 Range/Units 15:45 WBC 6.38 (4.8-10.8) K/uL Hgb 10.9 L (14.0-18.0) g/dL Hct 33.2 L (42-52) % Plt Count 151 (130-400) K/uL BMP 07/21/21 15:45 Sodium 136 Potassium 3.9 Chloride 96 L Carbon Dioxide 30 BUN 45 H Creatinine 3.26 H Glucose 198 H Calcium 9.0 Cardiac Enzymes 07/21/21 Range/Units 15:45 Troponin I 0.06 H* (0-0.04) ng/ml Liver Function 07/21/21 Range/Units 15:45 Total Bilirubin 0.7 (0.2-1.0) mg/dl AST 14 (13-39) U/L ALT 15 (7-52) U/L Alkaline Phosphatase 115 H (34-104) U/L Albumin 3.5 (3.4-5.0) gm/dl Urine 07/21/21 Range/Units 18:32 Urine Color Yellow Urine Appearance Clear (Clear) Urine pH 6.5 (4.5-7.5) Ur Specific Dora 1.011 (1.000-1.030) Urine Protein 3+ H (Negative) Urine Glucose (UA) Trace H (Negative) Diagnostic Findings Chest X-Ray 07/21/21 15:27 XR chest 1V portable CLINICAL HISTORY: Dyspnea COMPARISON STUDY: Chest radiograph July 08, 2021. FINDINGS: A left subclavian biventricular pacer/AICD is in place. Moderate cardiomegaly is unchanged. No evidence for pulmonary edema or pneumonia. There is no pneumothorax or pleural effusion. IMPRESSION: No acute cardiopulmonary findings. No change in appearance of the chest. ACT 112: Negative or not required by law. Electronically signed by: Balwinder Juarez M.D. 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
[2021-07-21 18:57] LABS: Appearance Urine Clear (Clear); Bacteria Urine Automated Negative (Negative); Bilirubin Urine Negative (Negative); Blood Urine Trace (Negative); Cast Urine Automated 0 /lpf (0-5); Color Urine Yellow; Glucose Urine UA Trace (Negative); Ketones Urine Negative (Negative); Leukocyte Esterase Urine Negative (Negative); Nitrite Urine Negative (Negative); Protein Urine 3+ (Negative); RBC Urine Automated 0-4 /hpf (0-4); Specific Gravity Urine 1.011 (1.000-1.030); Urobilinogen Urine Negative (Negative); WBC Urine Automated 0 /hpf (0-5); pH Urine 6.5 (4.5-7.5)
[2021-07-21] MEDS ORDERED: DOCUSATE SODIUM 100 MG CAP PO PRN (20:02)
[2021-07-21] MEDS ORDERED: FLUTICASONE/SALMETEROL (ADVAIR) 500/50 INH 14 PUFF INH SCH (20:02)
[2021-07-21] MEDS ORDERED: CARBOHYDRATES FOR HYPOGLYCEMIA PO PRN (20:02)
[2021-07-21] MEDS ORDERED: GLUCOSE 40% GEL 15 GM TUBE PO PRN (20:02)
[2021-07-21] MEDS ORDERED: PROMETHAZINE HCL SYRUP 6.25 MG/5 ML PO PRN (20:02)
[2021-07-21] MEDS ORDERED: ALBUT/IPRATROP 3MG/0.5MG NEB 3 ML VIAL INH PRN (20:02)
[2021-07-21] MEDS ORDERED: GLUCOSE 10 TABS/TUBE PO PRN (20:02)
[2021-07-21] MEDS ORDERED: SENNA 8.6 MG TAB PO PRN (20:02)
[2021-07-21] MEDS ORDERED: ALBUTEROL HFA 8 GM INHALER INH PRN (20:02)
[2021-07-21] MEDS ORDERED: oxyCODONE HCL IR 5 MG TAB (IMMEDIATE RELEASE) PO PRN (20:02)
[2021-07-21] MEDS ORDERED: FLUTICASONE PROPIONATE NA SPR 16 GM BTL PRN (20:02)
[2021-07-21] MEDS ORDERED: DEXTROSE 50% 50 ML SYRINGE IV PRN (20:02)
[2021-07-21] MEDS ORDERED: GLUCAGON FOR INJ 1 MG VIAL SQ PRN (20:02)
[2021-07-21] MEDS: INSULIN ASPART PER UNIT SC SCH (21:11)
[2021-07-21] MEDS: INSULIN GLARGINE SOLOSTAR 100 UNITS/ML 3 ML PEN SQ SCH (21:11)
[2021-07-21] MEDS: oxyCODONE HCL 10 MG TABCR (OxyCONTIN) PO SCH (21:14)
[2021-07-21] MEDS: MAGNESIUM OXIDE 400 MG TAB PO SCH (21:15)
[2021-07-21] MEDS: ATORVASTATIN 40 MG TAB PO SCH (21:16)
[2021-07-21] MEDS: APIXABAN 2.5 MG TAB PO SCH (21:16)
[2021-07-21] MEDS: METOPROLOL SUCC 50MG EXT REL TAB PO SCH (21:17)
[2021-07-21] MEDS ORDERED: MAGNESIUM SULFATE / D5W 1 GM/100 ML BAG IV ONE (23:00)
[2021-07-22 08:00] LABS: BUN Creatinine Ratio 13.8 (10-20); Calcium 9.2 mg/dl (8.5-10.1); Creatinine Clr Calc Pharmacy 26.3 ml/min; Est GFR (African American) 22.8 ml/min; Est GFR (Non-African American) 19.7 ml/min; Magnesium 2.2 mg/dl (1.7-2.4); Potassium 3.8 mmol/L (3.5-5.1)
[2021-07-22 08:06] LABS: Troponin I 0.08 ng/ml (0-0.04)
[2021-07-22] MEDS: INSULIN ASPART PER UNIT SC SCH ×4 (08:07→20:32)
[2021-07-22] MEDS: AMIODARONE 200 MG TAB PO SCH ×2 (08:17→16:58)
[2021-07-22] MEDS: ASPIRIN 81 MG ECTAB PO SCH (08:18)
[2021-07-22] MEDS: APIXABAN 2.5 MG TAB PO SCH ×2 (08:18→20:26)
[2021-07-22] MEDS: FLUTICASONE/VILANTEROL 200/25MCG 14 PUFFS/INHALER INH SCH (08:19)
[2021-07-22] MEDS: INSULIN GLARGINE SOLOSTAR 100 UNITS/ML 3 ML PEN SQ SCH ×2 (08:20→20:31)
[2021-07-22] MEDS: MAGNESIUM OXIDE 400 MG TAB PO SCH (08:20)
[2021-07-22] MEDS: oxyCODONE HCL 10 MG TABCR (OxyCONTIN) PO SCH ×2 (08:21→20:30)
[2021-07-22] MEDS: METOPROLOL SUCC 50MG EXT REL TAB PO SCH (08:21)
[2021-07-22] MEDS: PANTOprazole 40 MG TAB PO SCH (08:21)
[2021-07-22] MEDS: TORSEMIDE 20 MG TAB PO SCH ×2 (08:22→13:51)
[2021-07-22] MEDS: POTASSIUM CHLORIDE CRTAB 20 MEQ TABCR PO SCH (08:22)
[2021-07-22] MEDS ORDERED: amLODIPine BESYLATE 5 MG TAB PO SCH (09:00)
--- NOTE | 2021-07-22 11:01 | Cardiology Consultation ---
Date of Consultation July 22, 2021 Assessment & Plan (1) Severe aortic stenosis: (2) Dyspnea: (3) Ventricular tachycardia, non-sustained: (4) Elevated troponin I level: (5) Dizziness: (6) Nonischemic cardiomyopathy: (7) Chronic systolic (congestive) heart failure: Dizziness. History suggests possible vertigo as an etiology. Further workup as per Hospitalist Nonsustained ventricular tachycardia. Seemingly asymptomatic. ? Whether "atrial therapies" are contributing. [employer] contacted for device interrogation and reprogramming (at least turning off atrial therapies and adjusting VT detection). Maintain electrolytes. Continue amiodarone. Increase metoprolol succinate dosing, concurrently reducing amlodipine dosing. Nonischemic cardiomyopathy, NYHA Class III+, chronic left bundle branch block status post biventricular pacemaker defibrillator implantation in June of 2017. EF 40-45% in May 2021 ([facility]) Systolic and diastolic congestive heart failure. Volume status appears compensated by examination. Optivol below threshold. Continue the oral diuretic therapy. Severe aortic stenosis. In need of intervention when able to from a wound and renal standpoint. The wound certainly appears to be healing. Will make arrangements for the patient to be seen by Dr. Coates at [facility] (Office aware, will be scheduling next available appointment and contact patient) Chronic atrial fibrillation. Continue rate control strategy and reduced dose Eliquis anticoagulation Elevated troponin. No evidence of an ACS. Nonobstructive coronary artery disease via cardiac catheterization last in June 2016. Will need repeat cath prior to AVR. Supervising Physician Co-Signing Physician Notes Patient was seen and examined personally. Assessment well outlined as above. Patient with longstanding history of valvular heart disease, arrhythmias including chronic atrial fibrillation and nonsustained ventricular tachycardia with indwelling pacer defibrillator. Presents now for readmission with multiple past admissions with symptoms of dizziness and lightheadedness. Pacer interrogation reveals brief runs of nonsustained ventricular tachycardia but not significant length resulting current complaints Chronic severe aortic stenosis remains an ongoing issue. Congestive heart failure not present on exam Plan as above we will reassess and reprogram pacer defibrillator We will adjust cardiac medications as indicated above Aortic valve stenosis remains an issue addressing it would include cardiac catheterization and valve replacement with likely associated progression to end- stage renal disease requiring replacement therapy History of Present Illness Reason for Consultation: SOB, dizziness, severe , NSVT Requesting Physician: Eric Sewell MD Attending Physician: Eric Sewell MD History of Present Illness Complex 66 year old male readmitted to [facility] on 07/21/2021, presenting with a chief complaint of dizziness. Patient describes worsening dizziness over the last 3-4 days that is associated with the sensation of the room spinning, nausea, and emesis. Telemetry notable for nonsustained episodes of wide complex tachycardia lasting up to 17 beats in duration (dizziness spells are lasting for 3 minutes to for hours). Device interrogation in the ER revealed approrpiate function, longstanding persistent atrial fibrillation with atrial therapies are ON; No VT noted. Patient also notes dyspnea at rest, worse when attempting to lay down. His right lower extremity would is improving per patient report, appearing significant improved as compared to when I saw it last at the [facility] on June 25, 2021. No chest pain. No palpitations. No device alarms or discharges. No syncope. No fevers or chills. No melena or hematochezia. Patient discharged from [facility] on 07/12/2021, presenting with dizziness and hypotension. Nonsustained ventricular tachycardia noted at that time. Metoprolol succinate was continued at 100 mg BID. Patient received IV amiodarone (discontinued on 07/11/2021) followed by oral, discharged on 200 mg twice a day. LFTs normal, TSH stable at 4.895. Digoxin, hydralazine, and isosorbide were disc ontinued. Hyperbaric oxgyen therapy not covered, following with the [facility]. Problem List: Calcific aortic valve disease with severe aortic valve stenosis. Nonischemic cardiomyopathy, NYHA Class III+, chronic left bundle branch block status post biventricular pacemaker defibrillator implantation in June of 2017. EF 40-45% in May 2021 ([facility]) Systolic and diastolic congestive heart failure Chronic atrial fibrillation, prescribed reduce dose/off-label Eliquis, 2.5 mg twice per day (Coumadin not recommended by Nephrology due to calciphylaxis) Atherosclerotic coronary disease without obstruction by last cardiac catheterization June 2016. Pulmonary hypertension. Severe central and obstructive sleep apnea syndrome, treated with PAP therapy CVA in November 2019, while off anticoagulation for endoscopy COPD. Left lower lobe pulmonary nodule. Stage IV chronic kidney disease followed by Dr. Bosch. Peripheral artery disease. Hypertension. Status post adrenalectomy at [facility] per patient report. Dyslipidemia Chronic anemia, history of iron deficiency, chronic thrombocytopenia. Type 2 diabetes mellitus. Followed by PCP, poorly controlled. History of bacteremia/sepsis, possibly related to acute cholecystitis with intermittent abdominal pain Calciphylaxis, right lower extremity Social History: + Smokeless tobacco use. No cigarettes. Social alcohol. . 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 Cancer in his brother and sister Allergies Allergy/AdvReac Type Severity Reaction Status Date / Time prednisone AdvReac Severe BSG'S OVER Verified 07/21/21 16:27 400-CONFUSION, DISORIENTED Home Medications Medication Instructions Recorded Confirmed Type aspirin 81 mg tablet,delayed 81 mg PO QAM 02/05/18 07/21/21 History release pantoprazole 40 mg tablet,delayed 40 mg PO QAM 02/05/18 07/21/21 History release (Protonix) albuterol sulfate 90 mcg/actuation 2 puff INHALATION Q4H PRN 08/01/18 07/21/21 History aerosol inhaler (ProAir HFA) fluticasone propionate 50 2 spray INTRANASAL DAILY PRN 08/01/18 07/21/21 History mcg/actuation nasal spray,suspension (Flonase Allergy Relief) ipratropium 0.5 mg-albuterol 3 mg 3 ml INHALATION QID PRN 08/01/18 07/21/21 History (2.5 mg base)/3 mL nebulization soln fluticasone furoate 100 1 inh INHALATION QAM 03/02/20 07/21/21 History mcg-vilanterol 25 mcg/dose inhalation powder (Breo Ellipta) metoprolol succinate 100 mg 100 mg PO BID #60 tab 08/14/20 07/21/21 Rx tablet,extended release 24 hr (Toprol XL) atorvastatin 80 mg tablet 80 mg PO QPM 09/17/20 07/21/21 History insulin lispro 100 unit/mL 0 sliding scale dose SUBCUT TIDM 01/17/21 07/21/21 History subcutaneous pen (Humalog KwikPen (U-100) Insulin) apixaban 2.5 mg tablet 2.5 mg PO BID 03/01/21 07/21/21 History torsemide 20 mg tablet See Rx Instructions .ROUTE .COMPLEX 04/24/21 07/21/21 History sodium chloride 0.9 % (flush) 10 ml IV DAILY 05/26/21 07/21/21 History (Normal Saline Flush) amlodipine 5 mg tablet (Norvasc) 5 mg PO QAM #30 tab 05/30/21 07/21/21 Rx acetaminophen 500 mg tablet 500 - 1,000 mg PO DIRECTED PRN 07/03/21 07/21/21 History (Tylenol Extra Strength) docusate sodium 100 mg capsule 100 mg PO BID PRN 07/03/21 07/21/21 History fluticasone 500 mcg-salmeterol 50 1 inh INHALATION Q12H 07/03/21 07/21/21 History mcg/dose blistr powdr for inhalation (Advair Diskus) oxycodone 10 mg tablet,crush 10 mg PO BID 07/03/21 07/21/21 History resistant,extended release 12 hr (OxyContin) potassium chloride 20 mEq 20 meq PO DAILY 07/03/21 07/21/21 History tablet,extended release promethazine 6.25 mg/5 mL oral 6.25 mg PO Q6H PRN 07/03/21 07/21/21 History syrup sennosides 8.6 mg tablet (Senna 8.6 - 17.2 mg PO BID PRN 07/03/21 07/21/21 History Laxative) insulin glargine 100 unit/mL (3 35 unit SUBCUT HS 07/08/21 07/21/21 History mL) subcutaneous pen (Lantus Solostar U-100 Insulin) oxycodone 5 mg tablet 5 mg PO Q4H PRN 07/08/21 07/21/21 History amiodarone 200 mg tablet 200 mg PO BIDM #60 tab 07/12/21 07/21/21 Rx insulin glargine 100 unit/mL (3 40 unit SUBCUT BID #15 ml 07/12/21 07/21/21 Rx mL) subcutaneous pen (Lantus Solostar U-100 Insulin) doxycycline hyclate 100 mg tablet 100 mg PO BID 14 Days #28 tab 07/22/21 Rx Patient History Medical History Aortic stenosis Severe aortic stenosis vs pseudo aortic stenosis due to low output per cardio note from 12/2019 ECHO Asthma Atrial fibrillation on warfarin CAD (coronary artery disease) "nonobstructive" Chronic anemia Chronic kidney disease Stage 4, under surveillance by Dr. Mcdermott (no dialysis at this time) Chronic systolic (congestive) heart failure COPD (chronic obstructive pulmonary disease) Diabetic neuropathy DM type 2 (diabetes mellitus, type 2) IDDM Dyslipidemia Gall stones GERD (gastroesophageal reflux disease) History of COVID-19 Dx 08/05/20(hospitalized at [place]) > symptoms at time of cough, SOB, generalized weakness, n/v/d, loss of taste/smell > "resolved" History of multiple pulmonary nodules Hypertension LBBB (left bundle branch block) Nonischemic cardiomyopathy S/p BIV AICD in place; follows with Dr. Graves Presence of combination internal cardiac defibrillator (ICD) and pacemaker Implanted 5+ years ago, [employer], last check 07/2020 Pulmonary HTN PVD (peripheral vascular disease) Sleep apnea + nocturnal hypoxia > BIPAP + 2L O2 HS Stroke 11/2019 > residual speech difficulty/short term memory issues Surgical History H/O cardiac catheterization Non nonobstructive CAD on 2016 cardiac cath H/O total adrenalectomy Left (25 years ago) History of colonoscopy History of esophagogastroduodenoscopy (EGD) S/P debridement (01/08/21) Left Lower Extremity Medial and Lateral excisional Debridement ( greater than 20 sq. cm and Biopsy( both wounds)) - Ignacio Chisholm, 01/08/21 Family History Sister Diabetes Brother Diabetes Other Hypertension Lung cancer Social History Smoking Status: Never smoker Tobacco Type: Smokeless Tobacco (Dip or Chew) Second Hand Exposure: No; Do You Dip or Chew Tobacco: Yes; Tobacco Cessation Education Requested by Patient: No Hx Alcohol Use: No Hx Substance Use: No Preferred Language: Prydeinig Communication Ability: Effective Visual Impairment: Limited Inspector Assemblies And Installations Required: No Beliefs That Will Affect Care: None marital status: Current Living Situation: Spouse current occupational status: retired 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 Physical Exam Physical Exam: Examined in a bedside chair General: alert and no distress Eyes: PER. Conjunctiva pink, sclera clear. HENT: Normocephalic. Atraumatic. Neck: Transmitted systolic murmur. No overt JVD. Heart: RRR. Grade III/ systolic murmur. No diastolic murmur. Lungs: Lungs clear to auscultation Abdomen: +BS. Soft. Nontender. No masses. No organomegaly. Extremities: Right lateral lower extremity wound. Mild edema. No cyanosis. Pulses: radial=2/4, posterior tibial=0/4. Results & Data ([facility]) Vital Signs (Past 12 Hours) Vital Signs Temp Pulse Pulse Resp BP BP Pulse Ox 07/22/21 10:52 36.5 C 64 15 136/80 100 07/22/21 07:31 60 07/22/21 07:29 36.6 C 72 16 136/82 94 07/22/21 03:10 36.9 C 62 16 129/83 92 07/21/21 23:15 37.3 C 63 18 106/69 99 Laboratory Results Laboratory Results - last 24 hr 07/21/21 07/21/21 07/21/21 15:45 15:45 15:45 WBC 6.38 RBC 3.94 L Hgb 10.9 L Hct 33.2 L MCV 84.3 MCH 27.7 MCHC 32.8 RDW Std Deviation 44.9 RDW Coeff of Joey 14.5 Plt Count 151 MPV 8.9 Immature Gran % (Auto) 0.3 Neut % (Auto) 71.9 Lymph % (Auto) 9.2 [place] % (Auto) 15.0 Eos % (Auto) 3.4 Baso % (Auto) 0.2 Neut # (Auto) 4.58 Lymph # (Auto) 0.59 L [place] # (Auto) 0.96 H Eos # (Auto) 0.22 Baso # (Auto) 0.01 Immature Gran # (Auto) 0.02 PT 11.4 INR 1.1 APTT 29.9 PTT Ratio 1.1 VBG pH VBG pCO2 VBG pO2 VBG HCO3 VBG O2 Saturation VBG Base Excess Barometric Pressure Sodium 136 Potassium 3.9 Chloride 96 L Carbon Dioxide 30 Anion Gap 10 BUN 45 H Creatinine 3.26 H Est Cr Clr Drug Dosing 25.3 Est GFR ( Amer) 21.5 Est GFR (Non-Af Amer) 18.6 BUN/Creatinine Ratio 13.8 Glucose 198 H POC Glucose Calcium 9.0 Phosphorus 3.2 Magnesium 1.8 Total Bilirubin 0.7 AST 14 ALT 15 Alkaline Phosphatase 115 H Troponin I 0.06 H* B-Natriuretic Peptide Total Protein 6.7 Albumin 3.5 Globulin 3.2 Albumin/Globulin Ratio 1.1 Urine Color Urine Appearance Urine pH Ur Specific [place] Urine Protein Urine Glucose (UA) Urine Ketones Urine Blood Urine Nitrite Urine Bilirubin Urine Urobilinogen Ur Leukocyte Esterase Urine WBC (Auto) Urine RBC (Auto) U Hyaline Cast (Auto) U Epithel Cells (Auto) Urine Bacteria (Auto) SARS-CoV-2, RNA, NAAT 07/21/21 07/21/21 07/21/21 15:45 16:07 18:32 WBC RBC Hgb Hct MCV MCH MCHC RDW Std Deviation RDW Coeff of Joey Plt Count MPV Immature Gran % (Auto) Neut % (Auto) Lymph % (Auto) [place] % (Auto) Eos % (Auto) Baso % (Auto) Neut # (Auto) Lymph # (Auto) [place] # (Auto) Eos # (Auto) Baso # (Auto) Immature Gran # (Auto) PT INR APTT PTT Ratio VBG pH 7.46 H VBG pCO2 43 VBG pO2 53 VBG HCO3 30 VBG O2 Saturation 85.9 VBG Base Excess 5.4 Barometric Pressure 728.7 Sodium Potassium Chloride Carbon Dioxide Anion Gap BUN Creatinine Est Cr Clr Drug Dosing Est GFR ( Amer) Est GFR (Non-Af Amer) BUN/Creatinine Ratio Glucose POC Glucose Calcium Phosphorus Magnesium Total Bilirubin AST ALT Alkaline Phosphatase Troponin I B-Natriuretic Peptide Total Protein Albumin Globulin Albumin/Globulin Ratio Urine Color Yellow Urine Appearance Clear Urine pH 6.5 Ur Specific [place] 1.011 Urine Protein 3+ H Urine Glucose (UA) Trace H Urine Ketones Negative Urine Blood Trace H Urine Nitrite Negative Urine Bilirubin Negative Urine Urobilinogen Negative Ur Leukocyte Esterase Negative Urine WBC (Auto) 0 Urine RBC (Auto) 0-4 U Hyaline Cast (Auto) 0 U Epithel Cells (Auto) 5-10 H Urine Bacteria (Auto) Negative SARS-CoV-2, RNA, NAAT NEGATIVE 07/21/21 07/22/21 07/22/21 21:05 01:30 07:00 WBC RBC Hgb Hct MCV MCH MCHC RDW Std Deviation RDW Coeff of Joey Plt Count MPV Immature Gran % (Auto) Neut % (Auto) Lymph % (Auto) [place] % (Auto) Eos % (Auto) Baso % (Auto) Neut # (Auto) Lymph # (Auto) [place] # (Auto) Eos # (Auto) Baso # (Auto) Immature Gran # (Auto) PT INR APTT PTT Ratio VBG pH VBG pCO2 VBG pO2 VBG HCO3 VBG O2 Saturation VBG Base Excess Barometric Pressure Sodium Potassium Chloride Carbon Dioxide Anion Gap BUN Creatinine Est Cr Clr Drug Dosing Est GFR ( Amer) Est GFR (Non-Af Amer) BUN/Creatinine Ratio Glucose POC Glucose 141 H 114 H Calcium Phosphorus Magnesium Total Bilirubin AST ALT Alkaline Phosphatase Troponin I B-Natriuretic Peptide 693 H Total Protein Albumin Globulin Albumin/Globulin Ratio Urine Color Urine Appearance Urine pH Ur Specific [place] Urine Protein Urine Glucose (UA) Urine Ketones Urine Blood Urine Nitrite Urine Bilirubin Urine Urobilinogen Ur Leukocyte Esterase Urine WBC (Auto) Urine RBC (Auto) U Hyaline Cast (Auto) U Epithel Cells (Auto) Urine Bacteria (Auto) SARS-CoV-2, RNA, NAAT 07/22/21 07/22/21 07/22/21 07:00 07:23 11:18 WBC RBC Hgb Hct MCV MCH MCHC RDW Std Deviation RDW Coeff of Joey Plt Count MPV Immature Gran % (Auto) Neut % (Auto) Lymph % (Auto) [place] % (Auto) Eos % (Auto) Baso % (Auto) Neut # (Auto) Lymph # (Auto) [place] # (Auto) Eos # (Auto) Baso # (Auto) Immature Gran # (Auto) PT INR APTT PTT Ratio VBG pH VBG pCO2 VBG pO2 VBG HCO3 VBG O2 Saturation VBG Base Excess Barometric Pressure Sodium 137 Potassium 3.8 Chloride 98 Carbon Dioxide 30 Anion Gap 9 BUN 43 H Creatinine 3.11 H Est Cr Clr Drug Dosing 26.3 Est GFR ( Amer) 22.8 Est GFR (Non-Af Amer) 19.7 BUN/Creatinine Ratio 13.8 Glucose 116 H POC Glucose 120 H 168 H Calcium 9.2 Phosphorus Magnesium 2.2 Total Bilirubin AST ALT Alkaline Phosphatase Troponin I 0.08 H* B-Natriuretic Peptide Total Protein Albumin Globulin Albumin/Globulin Ratio Urine Color Urine Appearance Urine pH Ur Specific [place] Urine Protein Urine Glucose (UA) Urine Ketones Urine Blood Urine Nitrite Urine Bilirubin Urine Urobilinogen Ur Leukocyte Esterase Urine WBC (Auto) Urine RBC (Auto) U Hyaline Cast (Auto) U Epithel Cells (Auto) Urine Bacteria (Auto) SARS-CoV-2, RNA, NAAT
[2021-07-22] MEDS ORDERED: METOPROLOL SUCC 25MG EXT REL TAB PO ONE (12:00)
--- NOTE | 2021-07-22 14:20 | Hospitalist Progress Note ---
Date of Service July 22, 2021 Assessment & Plan (1) Dyspnea: (2) Severe aortic stenosis: (3) Ventricular tachycardia, non-sustained: (4) CKD (chronic kidney disease) stage 4, GFR 15-29 ml/min: (5) Calciphylaxis of right lower extremity with nonhealing ulcer: (6) Dizziness: (7) Nonischemic cardiomyopathy: (8) DM type 2 (diabetes mellitus, type 2): (9) Chronic atrial fibrillation: (10) ARPIT (obstructive sleep apnea): Plan: Shortness of breath, dizziness with orthopnea- likely from severe . Euvolemic on exam. Plan as below. Severe aortic stenosis-unable to get valve surgery because of unhealing right leg wound. Discussed with cardiology- he needs valve replacement but currently can't do because of his calciphylaxis with ulcer. Seen by wound care. If he is to have valve surgery, he will go into ESRD requiring dialysis. Consulted nephro to assist with treating the calciphylaxis as well as initiate discussion for need for dialysis post surgery, as per cardio recommendations. Euvolemic- continue torsemide, daily weight, I and Os. he will need cath prior to valve surgery. NSVT status post biventricular AICD- Not cause of his symptoms per cardio. Pacemaker interrogation, telemetry reviewed. Continue metoprolol- uptitrated. Monitor on telemetry. Maintain electrolytes K >4, Mg>2. Patient recently had echocardiogram, no need to repeat. Nonischemic cardiomyopathy-EF 45- 50% status post AICD. Euvolemic. Calciphylaxis right lower extremity with nonhealing ulcer- patient was on sodium thiosulfate infusion as outpatient but stopped due to N/V, and now on regular wound care last seen on Thursday. There was discussion about hyperbaric oxygen therapy referral to hasten the wound healing so cardiac issues can be addressed. Seen by [facility]OC[facility]. Nephro eval pending. CKD 4-creatinine at baseline 3.3 Avoid nephrotoxins. Chronic atrial fibrillation- on metoprolol and On amiodarone. On Eliquis for anticoagulation. Diabetes mellitus type II-A1c 10.7. On insulin at home lantus 30 bid along with novolog SSI usually 25 tid with meals. States good glycemic control at home. Continue, adjust as indicated. Pharmacy glycemic consult if needed ARPIT-continue CPAP Elevated trop- minimally elevated chronically, likely from CKD. No chest pain or ischemic symptoms. No need for further trending DVT prophylaxis-Eliquis Disposition- PCU on telemetry Admission and Anticipated Discharge Date Admission Date: July 21, 2021 Subjective Patient was seen and examined at bedside. Sitting comfortably in recliner. States he could not sleep last night and this is an ongoing issue for him even at home, but it is not because of dyspnea or orthopnea. Agreeable to melatonin. Denies shortness of breath or lightheadedness dizziness today. No edema. Voiding well. Physical Exam Physical Exam: General: Sitting comfortably in bed, not in distress, on room air HEENT: EOMI, DANETTE, MMM, no JVD appreciated. Chest: Clear breath sounds bilaterally, no wheezes or crackles CVS: Irregular, normal heart sounds, systolic ejection murmur Abdomen: Soft, non tender, not distended, normal bowel sounds Neuro: Awake, alert, oriented, conversing well, non focal Extremities: No cyanosis, clubbing or edema. RLE wound with Mepilex Results & Data Results & Data ([facility]) Vital Signs (Past 12 Hours) Vital Signs Temp Pulse Pulse Resp BP Pulse Ox 07/22/21 10:52 36.5 C 64 15 136/80 100 07/22/21 07:31 60 07/22/21 07:29 36.6 C 72 16 136/82 94 07/22/21 03:10 36.9 C 62 16 129/83 92 Laboratory Results Short CBC 07/21/21 Range/Units 15:45 WBC 6.38 (4.8-10.8) K/uL Hgb 10.9 L (14.0-18.0) g/dL Hct 33.2 L (42-52) % Plt Count 151 (130-400) K/uL BMP 07/21/21 07/22/21 15:45 07:00 Sodium 136 137 Potassium 3.9 3.8 Chloride 96 L 98 Carbon Dioxide 30 30 BUN 45 H 43 H Creatinine 3.26 H 3.11 H Glucose 198 H 116 H Calcium 9.0 9.2 Cardiac Enzymes 07/21/21 07/22/21 Range/Units 15:45 07:00 Troponin I 0.06 H* 0.08 H* (0-0.04) ng/ml Liver Function 07/21/21 Range/Units 15:45 Total Bilirubin 0.7 (0.2-1.0) mg/dl AST 14 (13-39) U/L ALT 15 (7-52) U/L Alkaline Phosphatase 115 H (34-104) U/L Albumin 3.5 (3.4-5.0) gm/dl Urine 07/21/21 Range/Units 18:32 Urine Color Yellow Urine Appearance Clear (Clear) Urine pH 6.5 (4.5-7.5) Ur Specific Duck 1.011 (1.000-1.030) Urine Protein 3+ H (Negative) Urine Glucose (UA) Trace H (Negative) Medications Administered Current Inpatient Medications Albuterol (Albuterol Hfa 8 Gm Inhaler) 2 puffs INH Q4H PRN PRN Reason: Shortness Of Breath Or Wheezin Stop: 08/20/21 20:01 Albuterol (Albut/Ipratrop 3mg/0.5mg Neb 3 Ml Vial) 3 ml INH QID PRN; Protocol PRN Reason: Shortness Of Breath Or Wheezin Stop: 08/20/21 20:01 Amiodarone HCl (Amiodarone 200 Mg Tab) 200 mg PO BIDM [facility] Stop: 08/21/21 07:59 Last Admin: 07/22/21 08:17 Dose: 200 mg Documented by: Amlodipine Besylate (Amlodipine Besylate 5 Mg Tab) 2.5 mg PO QAM [facility] Stop: 08/22/21 08:59 Apixaban (Apixaban 2.5 Mg Tab) 2.5 mg PO BID [facility] Stop: 08/20/21 20:59 Last Admin: 07/22/21 08:18 Dose: 2.5 mg Documented by: Aspirin (Aspirin 81 Mg Ectab) 81 mg PO QAM [facility] Stop: 08/21/21 08:59 Last Admin: 07/22/21 08:18 Dose: 81 mg Documented by: Atorvastatin Calcium (Atorvastatin 40 Mg Tab) 80 mg PO QPM [facility] Stop: 08/20/21 20:59 Last Admin: 07/21/21 21:16 Dose: 80 mg Documented by: Dextrose (Dextrose 50% 50 Ml Syringe) 25 - 50 ml IV UD PRN; Protocol PRN Reason: Hypoglycemia Protocol Stop: 08/20/21 20:01 Docusate Sodium (Docusate Sodium 100 Mg Cap) 100 mg PO BID PRN PRN Reason: Constipation Stop: 08/20/21 20:01 Fluticasone Propionate (Fluticasone Propionate Na Spr 16 Gm Btl) 2 sprays NA DAILY PRN PRN Reason: Nasal Congestion Stop: 08/20/21 20:01 Fluticasone/Vilanterol (Fluticasone/Vilanterol 200/25mcg 14 Puffs/Inhaler) 1 puffs INH QAM [facility] Stop: 08/21/21 08:59 Last Admin: 07/22/21 08:19 Dose: 1 puffs Documented by: Glucagon (Glucagon For Inj 1 Mg Vial) 1 mg SQ UD PRN; Protocol PRN Reason: Hypoglycemia Protocol Stop: 08/20/21 20:01 Glucose (Glucose 10 Tabs/Tube) 4 - 8 tabs PO UD PRN; Protocol PRN Reason: Hypoglycemia Protocol Stop: 08/20/21 20:01 Glucose (Glucose 40% Gel 15 Gm Tube) 15 - 30 gm PO UD PRN; Protocol PRN Reason: Hypoglycemia Protocol Stop: 08/20/21 20:01 Insulin Aspart (Insulin Aspart Per Unit) 0 units SC ACHS [facility] Stop: 08/20/21 20:59 Last Admin: 07/22/21 12:11 Dose: 12 units Documented by: Insulin Glargine (Insulin Glargine Solostar 100 Units/Ml 3 Ml Pen) 30 units SQ BID [facility] Stop: 08/20/21 20:59 Last Admin: 07/22/21 08:20 Dose: 30 units Documented by: Magnesium Oxide (Magnesium Oxide 400 Mg Tab) 400 mg PO DAILY [facility] Stop: 08/20/21 20:01 Last Admin: 07/22/21 08:20 Dose: 400 mg Documented by: Melatonin (Melatonin 3 Mg Tab) 6 mg PO HS [facility] Stop: 08/21/21 20:59 Metoprolol Succinate (Metoprolol Succ 25mg Ext Rel Tab) 125 mg PO BID [facility] Stop: 08/21/21 20:59 Miscellaneous (Carbohydrates For Hypoglycemia ) 15 - 30 gm PO UD PRN PRN Reason: Hypoglycemia Protocol Stop: 08/20/21 20:01 Oxycodone HCl (Oxycodone Hcl 10 Mg Tabcr (Oxycontin)) 10 mg PO BID [facility] Stop: 08/04/21 20:59 Last Admin: 07/22/21 08:21 Dose: 10 mg Documented by: Oxycodone HCl (Oxycodone Hcl Ir 5 Mg Tab (Immediate Release)) 5 mg PO Q4H PRN PRN Reason: Pain Stop: 08/04/21 20:01 Pantoprazole Sodium (Pantoprazole 40 Mg Tab) 40 mg PO QAM [facility] Stop: 08/21/21 08:59 Last Admin: 07/22/21 08:21 Dose: 40 mg Documented by: Potassium Chloride (Potassium Chloride Crtab 20 Meq Tabcr) 20 meq PO DAILY [facility] Stop: 08/21/21 08:59 Last Admin: 07/22/21 08:22 Dose: 20 meq Documented by: Promethazine HCl (Promethazine Hcl Syrup 6.25 Mg/5 Ml) 6.25 mg PO Q6H PRN PRN Reason: NAUSEA/VOMITING Stop: 08/20/21 20:01 Sennosides (Senna 8.6 Mg Tab) 8.6 mg PO BID PRN PRN Reason: Constipation Stop: 08/20/21 20:01 Torsemide (Torsemide 20 Mg Tab) 40 mg PO QAM [facility] Stop: 08/21/21 08:59 Last Admin: 07/22/21 08:22 Dose: 40 mg Documented by: Torsemide (Torsemide 20 Mg Tab) 20 mg PO DAILY@1400 [facility] Stop: 08/21/21 13:59 Last Admin: 07/22/21 13:51 Dose: 20 mg Documented by: (1) DM type 2 (diabetes mellitus, type 2) Diabetes mellitus custodial insulin use: with superintendent [employer] terminal use Diabetes mellitus complication status: with neurologic complications Diabetes mellitus complication detail: with unspecified neuropathy Qualified Code(s): E11.40 - Type 2 diabetes mellitus with diabetic neuropathy, unspecified; Z79.4 - senior care (current) use of insulin
[2021-07-22] MEDS: ATORVASTATIN 40 MG TAB PO SCH (20:27)
[2021-07-22] MEDS: METOPROLOL SUCC 25MG EXT REL TAB PO SCH (20:27)
[2021-07-22] MEDS ORDERED: MELATONIN 3 MG TAB PO SCH (21:00)
--- NOTE | 2021-07-23 06:38 | Electrocardiogram Report ---
Test Reason : Blood Pressure : / mmHG Vent. Rate : 064 BPM Atrial Rate : 063 BPM P-R Int : 000 ms QRS Dur : 204 ms QT Int : 552 ms P-R-T Axes : 000 177 -15 degrees QTc Int : 569 ms Ventricular-paced rhythm Abnormal ECG When compared with ECG of 10-JUL-2021 05:22, Vent. rate has decreased BY 20 BPM Confirmed by Leopoldo Oseguera ([id number]) on 07/23/2021 6:38:25 AM Referred By: REFERRED SELF Confirmed By:Leopoldo Oseguera
[2021-07-23] MEDS: INSULIN ASPART PER UNIT SC SCH ×2 (08:31→12:07)
[2021-07-23] MEDS: AMIODARONE 200 MG TAB PO SCH (08:37)
[2021-07-23] MEDS: APIXABAN 2.5 MG TAB PO SCH (08:38)
[2021-07-23] MEDS: ASPIRIN 81 MG ECTAB PO SCH (08:39)
[2021-07-23] MEDS: MAGNESIUM OXIDE 400 MG TAB PO SCH (08:39)
[2021-07-23] MEDS: FLUTICASONE/VILANTEROL 200/25MCG 14 PUFFS/INHALER INH SCH (08:39)
[2021-07-23] MEDS: POTASSIUM CHLORIDE CRTAB 20 MEQ TABCR PO SCH (08:40)
[2021-07-23] MEDS: METOPROLOL SUCC 25MG EXT REL TAB PO SCH (08:40)
[2021-07-23] MEDS: PANTOprazole 40 MG TAB PO SCH (08:40)
[2021-07-23] MEDS: TORSEMIDE 20 MG TAB PO SCH ×2 (08:41→13:03)
[2021-07-23] MEDS: INSULIN GLARGINE SOLOSTAR 100 UNITS/ML 3 ML PEN SQ SCH (08:57)
[2021-07-23 08:59] LABS: Calcium 9.2 mg/dl (8.5-10.1); Creatinine Clr Calc Pharmacy 24.5 ml/min; Est GFR (African American) 20.9 ml/min; Potassium 4.4 mmol/L (3.5-5.1)
[2021-07-23] MEDS ORDERED: amLODIPine BESYLATE 5 MG TAB PO SCH (09:00)
[2021-07-23] MEDS: oxyCODONE HCL 10 MG TABCR (OxyCONTIN) PO SCH (09:05)
--- NOTE | 2021-07-23 09:54 | Cardiology Progress Note ---
Date of Service July 23, 2021 Assessment & Plan (1) Severe aortic stenosis: (2) Dyspnea: (3) Ventricular tachycardia, non-sustained: (4) Elevated troponin I level: (5) Dizziness: (6) Nonischemic cardiomyopathy: (7) Chronic systolic (congestive) heart failure: Plan: Dizziness. History suggests possible vertigo as an etiology. Further workup as per Hospitalist Nonsustained ventricular tachycardia. Seemingly asymptomatic. According to the telemetry arrhythmia recall, no further VT since 07/22/2021 at 15:45. Maintain electrolytes. Continue amiodarone. Continue the increased dose of metoprolol succinate. Device interrogation/reprogramming not performed on 07/22/2021; will be done today. Nonischemic cardiomyopathy, NYHA Class III+, chronic left bundle branch block status post biventricular pacemaker defibrillator implantation in June of 2017. EF 40-45% in May 2021 ([facility]) Systolic and diastolic congestive heart failure. Volume status appears compensated by examination. Optivol below threshold. Continue the oral diuretic therapy as prescribed. Severe aortic stenosis. The right lower extremity wound has improved. Message received from Nephrology greatly appreciated - 1/3 chance of getting better, 1/3 chance of staying the same, 1/3 chance of getting worse. No real good treatment for calciphylaxis. OK to proceed. Office aware, making arrangements for the patient to be seen Dr. Coates at [facility]. Chronic atrial fibrillation. Continue rate control strategy and reduced dose Eliquis anticoagulation. Atrial therapies to be turned off by [employer] today. Elevated troponin. No evidence of an ACS. Nonobstructive coronary artery disease via cardiac catheterization last in June 2016. Will need repeat catheterization at [facility] prior to aortic valve intervention. Admission and Anticipated Discharge Date Admission Date: July 21, 2021 Supervising Physician Co-Signing Physician Notes Patient seen and personally examined. Anticipates discharge later today overall is feeling improved no further cardiac complaints dizziness or lightheadedness. Exam no evidence of volume overload. Pacer defibrillator interrogated and reprogrammed. Plan as outlined above Subjective Patient seen and examined. Chart, medications, and telemetry reviewed. Feeling better. No further dizziness. Dyspnea has improved. Telemetry: Paced. According to the telemetry arrhythmia recall, no further VT since 07/22/2021 at 15:45. Review of Systems Review of Systems: Complete Review of Systems is as stated above, negative, or noncontributory. Physical Exam Physical Exam: Examined in a bedside chair General: alert and no distress Eyes: PER. Conjunctiva pink, sclera clear. HENT: Normocephalic. Atraumatic. Neck: Transmitted systolic murmur. No overt JVD. Heart: RRR. Grade III/ systolic murmur. No diastolic murmur. Lungs: Lungs clear to auscultation Abdomen: +BS. Soft. Nontender. No masses. No organomegaly. Extremities: Right lateral lower extremity wound. Mild edema. No cyanosis. Pulses: radial=2/4, posterior tibial=0/4. Results & Data ([facility]) Vital Signs (Past 12 Hours) Vital Signs Temp Pulse Pulse Resp BP BP Pulse Ox 07/23/21 07:50 36.5 C 72 19 132/75 100 07/23/21 07:23 64 07/23/21 03:29 36.8 C 67 18 98/60 L 97 07/22/21 23:31 36.9 C 77 18 100/67 100 Laboratory Results Laboratory Results - last 24 hr 07/22/21 07/22/21 07/22/21 11:18 16:54 20:31 Sodium Potassium Chloride Carbon Dioxide Anion Gap BUN Creatinine Est Cr Clr Drug Dosing Est GFR ( Amer) Est GFR (Non-Af Amer) BUN/Creatinine Ratio Glucose POC Glucose 168 H 180 H 111 H Calcium Magnesium B-Natriuretic Peptide 07/23/21 07/23/21 07/23/21 06:05 07:04 08:09 Sodium 135 L Potassium 4.4 Chloride 97 L Carbon Dioxide 30 Anion Gap 8 BUN 50 H Creatinine 3.34 H Est Cr Clr Drug Dosing 24.5 Est GFR ( Amer) 20.9 Est GFR (Non-Af Amer) 18.0 BUN/Creatinine Ratio 15.0 Glucose 135 H POC Glucose 129 H Calcium 9.2 Magnesium 2.3 B-Natriuretic Peptide 07/23/21 08:09 Sodium Potassium Chloride Carbon Dioxide Anion Gap BUN Creatinine Est Cr Clr Drug Dosing Est GFR ( Amer) Est GFR (Non-Af Amer) BUN/Creatinine Ratio Glucose POC Glucose Calcium Magnesium B-Natriuretic Peptide 429 H
[2021-07-23] MEDS ORDERED: DOXYCYCLINE HYCLATE 100 MG CAP PO SCH (11:00)
--- NOTE | 2021-07-23 14:10 | Discharge Summary ---
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 Patient recently admitted to the hospital 07/08-07/12 for lightheadedness and dizziness and multiple medications were changed during admission. He was doing fine since discharge until 2 days back when he experienced worsening shortness of breath and dizziness. Shortness of breath even at rest, lasting for couple hours, more with exertion. Also with orthopnea that he has to sleep in recliner. States oxygen saturation has been normal with pulse oximeter at home. Also has associated dizziness. States compliance with medications including diuretics and Eliquis. States weight about the same. Denies any increase in swelling. Has good urine output. Denies any fever, chills, wheezing, chest tightness, chest pain, URI symptoms, cough. Denies any prior history of VTE. Denies any shock from ICD ever. In ED, patient was afebrile, stable, saturating well in room air, lying comfortably in bed. States he follows up with wound care for calciphylaxis once a month now and last seen on Thursday. He takes care of it every day at home with local wound care. ED patient spoke with cardiology on-call. Admission Exam Per Admitting Provider General: Sitting comfortably in bed, not in distress, on room air HEENT: EOMI, DANETTE, MMM, no JVD appreciated. Chest: Clear breath sounds bilaterally, no wheezes or crackles CVS: Irregular, normal heart sounds, systolic ejection murmur Abdomen: Soft, non tender, not distended, normal bowel sounds Neuro: Awake, alert, oriented, conversing well, non focal Extremities: No cyanosis, clubbing or edema. RLE wound with Mepilex Principal Diagnosis Shortness of breath and dizziness due to severe aortic stenosis Discharge Exam General: Sitting comfortably in bed, not in distress, on NC HEENT: EOMI, DANETTE, MMM, no JVD appreciated. Chest: Clear breath sounds bilaterally, no wheezes or crackles CVS: Irregular, normal heart sounds, systolic ejection murmur Abdomen: Soft, non tender, not distended, normal bowel sounds Neuro: Awake, alert, oriented, conversing well, non focal Extremities: No cyanosis, clubbing or edema. RLE wound with Mepilex Discharge Data Allergies Allergy/AdvReac Type Severity Reaction Status Date / Time prednisone AdvReac Severe BSG'S OVER Verified 07/21/21 16:27 400-CONFUSION, DISORIENTED Consultations 07/21/21 17:33 ED Decision to Admit Stat 07/21/21 19:05 Consult Cardiology Routine 07/22/21 09:16 Consult Nephrology Routine Hospital Course (1) Dyspnea: (2) Severe aortic stenosis: (3) Ventricular tachycardia, non-sustained: (4) CKD (chronic kidney disease) stage 4, GFR 15-29 ml/min: (5) Calciphylaxis of right lower extremity with nonhealing ulcer: (6) Dizziness: (7) Nonischemic cardiomyopathy: (8) DM type 2 (diabetes mellitus, type 2): (9) Chronic atrial fibrillation: (10) ARPIT (obstructive sleep apnea): Shortness of breath, dizziness with orthopnea- likely from severe . Euvolemic on exam. He has remained stable without any further shortness of breath or dizziness on his home medications. No evidence of vertigo. He did well with physical therapy without any shortness of breath or dizziness and closer to baseline. His pacemaker was reprogrammed. He had no more NSVT since yesterday but they were asymptomatic anyway. Discussed with cardio and nephrology. He has 1/3rd chance of worsening renal function requiring dialysis with the cardiac cath and valve replacement procedure, no real treatment for calciphylaxis and okay to proceed with valve surgery per nephro knowing the risks and patient agrees, even at my bedside discussion. Cardiology office making arrangements for patient to be seen with Dr Coates at [facility]. Renal function at baseline. Patient is cleared for discharge home by cardiology. Home therapy arranged. Doxycycline prescribed for RLE wound with Staph aureus. His toprol dose increased and amlodipine dose decreased per cardiology. He is comfortable and stable for discharge. Severe aortic stenosis- plan as above. Cardiology making arrangements for OP follow up with Dr Coates at [facility] for aortic valve intervention. NICM, NSVT status post biventricular AIC. Euvolemic, EF 45- 50%. NSVT not cause of his symptoms per cardio. No more NSVT episodes overnight and today. Pacemaker was reprogrammed today- Atrial therpaies turned off by [employer] vendor representatives today. Keep electrolytes at goal. Calciphylaxis right lower extremity with nonhealing ulcer- As above. Patient was on sodium thiosulfate infusion as outpatient but stopped due to N/V, and now on regular wound care last seen on Thursday. Seen by [facility]. Continue local wound care regularly. No real treatment per nephro. Doxycycline prescribed as the wound culture is showing staph aureus- follow up with PCP and wound clinic for further management. CKD 4-creatinine at baseline 3.3 Avoid nephrotoxins. Chronic atrial fibrillation- on metoprolol and On amiodarone. Toprol increased to 125 bid from 100 bid. On Eliquis for anticoagulation. Diabetes mellitus type II-A1c 10.7. Continue home insulin regimen at 30 bid along with novolog SSI ARPIT-continue CPAP Elevated trop- minimally elevated chronically, likely from CKD. No chest pain or ischemic symptoms. No need for further trendin Home Health Attestation I certify that this patient is under my care and that I, or a physicians studio assistant working with me, had a face to-face encounter that meets the home health [id number] encounter requirements with this patient. The encounter with the patient was in whole, or in part, for the following medical condition, which is the primary reason for home health care (list medical condition): Severe aortic stenosis, CHF I certify that, based on my findings, the following services are medically necessary home health services: My clinical findings support the need for the above services because: Caregiver Instruct Med Mgmt, Safety, Disease Process, Signs to Report Skilled Nsg Assessment Skilled Nsg Assess Pt Illness, Disease and Sx Monitoring Vital Signs Further, I certify that my clinical findings support that this patient is homebound (i.e. absences from home require considerable and taxing effort and are for medical reasons or alevism services or infrequently or of short duration when for other reasons) because: Poor Endurance; SOB Minimal Exertion Transportation Assistance/Unable to Leave Home Unassisted Certification for Home Health Services: Based on the above findings, I certify that this patient is confined to the home and needs intermittent correction care, physical therapy and/or speech therapy or continues to need occupational therapy. The patient is under my care, and I have initiated the establishment of the plan of care. This patient will be followed by a physician who will periodically review the plan of care. Total Time Total Time Spent Total Time Spent (In Minutes): 40 Discharge Plan Discharge Items Patient Disposition: Home - Home Health Services Reason For Visit: SOB Discharge Diagnosis: Severe aortic stenosis Activity: Resume your previous activity Non-emergency contact: Primary Care Provider, Computer Security Specialist and Movie Operator Call non-emergency contact if: you have any medication questions, your symptoms worsen, your wound has increased redness and your wound has increased drainage Follow-up/Referrals: Mirlande Melton MD [Primary Care Provider] - Diet: Carb Consistent or DM2, Heart Healthy and Low Sodium (2gm) Addtl Attending Provider Instructions: Your right leg wound culture showed staph aureus. Continue antibiotic doxycycline twice daily for it. Follow up with family doctor and wound clinic to ensure resolution Your metoprolol has been increased and your amlodipine has been decreased Metoprolol (125 mg twice daily- 100+25 mg pills) and amlodipine (2.5 mg daily- half of previous) We have not changed any of your other medications. Your pacemaker has been reprogrammed. Continue your insulin as you have been taking at home- we have not changed the dose Follow up with the valve clinic for your valve surgery. They will call you with appointment. Follow up with the kidney doctors Pending Studies at Discharge: No Stand-Alone Forms: My [facility] [employer], Smoking Cessation Medications and DC Order Prescriptions: New metoprolol succinate [Toprol XL] 25 mg tablet extended release 24 hr 25 mg PO BID Qty: 60 RF: 0 Continued apixaban 2.5 mg tablet 2.5 mg PO BID RF: 0 aspirin 81 mg Tablet,Delayed Release (Dr/Ec) 81 mg PO QAM RF: 0 pantoprazole [Protonix] 40 mg Tablet,Delayed Release (Dr/Ec) 40 mg PO QAM RF: 0 Breo Ellipta 100-25 mcg/dose Blister With Device 1 inh INHALATION QAM RF: 0 ipratropium-albuterol 0.5 mg-3 mg(2.5 mg base)/3 mL Solution For Nebulization 3 ml INHALATION QID PRN (Reason: Shortness Of Breath Or Wheezing) RF: 0 albuterol sulfate [ProAir HFA] 90 mcg/actuation Hfa Aerosol Inhaler 2 puff INHALATION Q4H PRN (Reason: Shortness Of Breath Or Wheezing) RF: 0 fluticasone propionate [Flonase Allergy Relief] 50 mcg/actuation Spencer,Suspension 2 spray INTRANASAL DAILY PRN (Reason: Nasal Congestion) RF: 0 insulin lispro [Humalog KwikPen Insulin] 100 unit/mL insulin pen 0 sliding scale dose subcut TIDM RF: 0 atorvastatin 80 mg tablet 80 mg PO QPM RF: 0 torsemide 20 mg tablet See Rx Instructions .ROUTE .COMPLEX RF: 0 sodium chloride 0.9 % (flush) [Normal Saline Flush] Syringe 10 ml IV DAILY RF: 0 sennosides [Senna Laxative] 8.6 mg tablet 8.6 - 17.2 mg PO BID PRN (Reason: Constipation) RF: 0 promethazine 6.25 mg/5 mL syrup 6.25 mg PO Q6H PRN (Reason: NAUSEA/VOMITING) RF: 0 acetaminophen [Tylenol Extra Strength] 500 mg Tablet 500 - 1,000 mg PO DIRECTED PRN (Reason: Pain) RF: 0 fluticasone propion-salmeterol [Advair Diskus] 500-50 mcg/dose Blister With Device 1 inh INHALATION Q12H RF: 0 docusate sodium 100 mg capsule 100 mg PO BID PRN (Reason: Constipation) RF: 0 potassium chloride 20 mEq tablet extended release 20 meq PO DAILY RF: 0 oxycodone [OxyContin] 10 mg tablet,oral only,ext.rel.12 hr 10 mg PO BID RF: 0 doxycycline hyclate 100 mg tablet 100 mg PO BID 14 Days Qty: 28 RF: 0 metoprolol succinate [Toprol XL] 100 mg Tablet Extended Release 24 Hr 100 mg PO BID Qty: 60 RF: 1 oxycodone 5 mg tablet 5 mg PO Q4H PRN (Reason: Pain) RF: 0 amiodarone 200 mg Tablet 200 mg PO BIDM Qty: 60 RF: 0 Changed Lantus Solostar U-100 Insulin 100 unit/mL (3 mL) insulin pen 30 unit SUBCUT HS Qty: 0 RF: 0 amlodipine [Norvasc] 5 mg Tablet 2.5 mg PO QAM Qty: 30 RF: 0 Discontinued Lantus Solostar U-100 Insulin 100 unit/mL (3 mL) insulin pen 40 unit SUBCUT BID Qty: 15 RF: 0 Discharge Orders: Discharge Order (Routine); Ordered 07/23/21 Ordered By: Eirc Sewell Admission Data Admit Date/Time: 07/21/21 18:45 Attending Provider: Eric Sewell Admit Provider: Eric Sewell Primary Care Provider: Mirlande Melton Other Providers: Eric Sewell ; Gerald Mittal ; Parish Sethi ; Pillo Graves ; Nirav Wild ; Christian Zurita ; Billy Chery ; Isabel Bergman ; Roxann Pulido ; Lillie Harmon ; Kaveh Dunn ; Kathleen Bosch ; Moses Ramos ; Sammie Meneses ; Marielena Bar ; Hermilo Miller ; Cesar Hawkins ; [facility]
--- NOTE | 2021-07-23 16:00 | Consultation Report ---
NEPHROLOGY CONSULTATION NOTE DATE OF SERVICE: 07/23/2021. REASON FOR CONSULTATION: CKD IV, calciphylaxis and possible need of dialysis. HISTORY OF PRESENT ILLNESS: The patient is a 66-year-old male with very complicated medical history, which includes CKD IV, with a baseline creatinine in the low 3s. He was also diagnosed as having calciphylaxis by skin biopsy and has received sodium thiosulfate but because of getting sick from the medication, he has not taken any for the last few weeks. He also has severe aortic stenosis as well as congestive heart failure and has required hospitalization very frequently. In fact, every few weeks, he is in the hospital. He presented to the hospital 2 days ago with increasing shortness of breath. He was also dizzy and orthopneic. He was found to have some nonsustained ventricular tachycardia on the telemetry. Since being admitted, no active management has been done. He is essentially on the home medication. He continues to be somewhat short of breath and limited on physical activity. His current dose of torsemide is same as what he was getting at home. Cardiology has seen the patient. It appears the plan was to do the valve surgery after the calciphylaxis is healed. PAST MEDICAL AND SURGICAL HISTORY: Includes: 1. Longstanding type 2 diabetes for 25+ years. 2. Chronic obstructive pulmonary disease stage IV, approaching stage V. 3. Obstructive sleep apnea. 4. Nonischemic cardiomyopathy. 5. Calciphylaxis of the right lower extremity with nonhealing ulcer. 6. History of ventricular tachycardia. 7. Nonsustained severe aortic stenosis. 8. Chronic atrial fibrillation. 9. GERD. 10. Asthma. 11. Chronic anemia, likely of CKD. 12. COPD. 13. Diabetic neuropathy. 14. History of gallstone. 15. History of COVID-19 infection, hospitalized 07/2020. 16. History of multiple pulmonary nodules. 17. Left bundle branch block. 18. Nonischemic cardiomyopathy, status post biventricular AICD in place. 19. Pulmonary hypertension. 20. Peripheral vascular disease. 21. History of stroke. 22. Total adrenalectomy 25+ years ago. 23. Colonoscopy. 24. EGD. 25. Status post wound debridement. FAMILY HISTORY: Negative for renal disease or dialysis. SOCIAL HISTORY: Current everyday smoker. He is . He lives with his spouse. 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 He used to do smokeless tobacco. He still smokes. REVIEW OF SYSTEMS: As detailed in HPI; unless stated otherwise, 12 system was reviewed and is negative. Positive review of systems included increasing shortness of breath, some chest discomfort, dizziness and orthopnea. However, there was no increase in the lower extremity edema or major change in weight. Denied any worsening nausea, vomiting or any other complaints. PHYSICAL EXAMINATION: GENERAL: Elderly white male who appears chronically ill. He is awake, alert, oriented x3. VITAL SIGNS: Blood pressure is 132/75, pulse rate 72, oxygen saturation 100% on 2 liter nasal cannula, temperature 36.5. HEENT: Mucous membranes are moist. NECK: Supple. No jugular venous distention. CHEST: Bilateral decreased breath sounds, occasional crackles at the bases. HEART: S1 and S2, irregular. Systolic murmur heard. ABDOMEN: Soft, nontender. EXTREMITIES: Show no lower extremity edema. He does have a bandaged wound on his right lateral part of the leg from calciphylaxis. NEUROLOGIC: He is awake, alert, oriented x3, normal speech. Moving all 4 extremities. LABORATORY TEST: Shows BUN 50, creatinine 3.34, sodium 135, potassium 4.4, chloride 97. BNP 429. Hemoglobin 10.9, WBC count 6.38, platelet count 151. IMAGING: Chest x-ray, no acute cardiopulmonary findings. ASSESSMENT AND PLAN: A 66-year-old male with longstanding type 2 diabetes with chronic kidney disease IV, baseline creatinine in the low 3s, calciphylaxis and severe aortic stenosis causing frequent hospitalization. Chronic kidney disease IV with calciphylaxis. This condition is very hard to understand as well as treat. We really do not have any definitive or effective therapy for this. Sodium thiosulfate is used, but does not mean it actually is a great treatment. It is quite possible that this thing may never heal or may heal on its own. However, in the interim, the patient is having frequent hospitalization with his cardiac issues, especially severe aortic stenosis. I had a long discussion with the patient and explained that the most pressing problem right now is his cardiac issue and that needs to be addressed. Calciphylaxis wound is not necessary an infection. I explained to the patient that there is about a 1/3rd chance that his kidney function might actually get better if we do a TAVR, 1/3rd chance it will not change anything and 1/3rd chance it may get worse. However, the status quo is not working at all as he is frequently admitted every few weeks. I explained to the patient that I would rather take a chance with TAVR and hope that his cardiac status gets better and that might make him overall better. The patient says he will think about the TAVR. Both Cardiology and the primary team was updated. As for the current management, I would continue with the current dose of torsemide as he appears fairly euvolemic. Job ID: [id number] [id number]
== END 2021-07-23 16:33 | disposition home health service (06) ==
LOC: 2S 15:15 → ED 15:15 → 2S 19:50
DX: R06.00 Dyspnea, unspecified; I50.22 Chronic systolic (congestive) heart failure; R42 Dizziness and giddiness; N18.4 Chronic kidney disease, stage 4 (severe); Z79.82 Long term (current) use of aspirin; I48.20 Chronic atrial fibrillation, unspecified; E11.40 Type 2 diabetes mellitus with diabetic neuropathy, unspecified; Z79.4 Long term (current) use of insulin; K21.9 Gastro-esophageal reflux disease without esophagitis; E11.22 Type 2 diabetes mellitus with diabetic chronic kidney disease; G47.33 Obstructive sleep apnea (adult) (pediatric); I25.10 Atherosclerotic heart disease of native coronary artery without angina pectoris; I35.0 Nonrheumatic aortic (valve) stenosis; E83.59 Other disorders of calcium metabolism; Z95.2 Presence of prosthetic heart valve; Z79.899 Other long term (current) drug therapy; J45.909 Unspecified asthma, uncomplicated; J44.9 Chronic obstructive pulmonary disease, unspecified; I42.9 Cardiomyopathy, unspecified; Z79.01 Long term (current) use of anticoagulants; I47.2 Ventricular tachycardia; I13.0 Hypertensive heart and chronic kidney disease with heart failure and stage 1 through stage 4 chronic kidney disease, or unspecified chronic kidney disease; F17.290 Nicotine dependence, other tobacco product, uncomplicated

== ENCOUNTER 2021-12-01 17:00 | Inpatient (IN) ==
--- NOTE | 2021-12-01 17:21 | Emergency Department Note ---
Impression & Plan Acute GI bleeding, Symptomatic anemia ED Provider Note NAME: NIRANJAN VILLALTA AGE: 66 SEX: M : 1955 ARRIVES VIA: Walk-In INFORMANT: Patient, ED PROVIDER(S): Hai Miller MD Chief Complaint: Vertigo, weakness and fatigue HPI: Patient presents due to concern for feeling as though he has difficulty with balance and walking. The patient states that at rest he feels okay and is not necessarily positional but he may develop spins. If he gets up and walks he feels as though he is "put out." Patient denies any current vertiginous symptoms but has felt like he is spinning sometimes when he walks. Patient d enies any fevers chills chest pains. The patient does complain of chronic shortness of breath. No cough or fever. Patient chews tobacco but does not smoke. Patient does have CKD and follows with nephrology. No prior history of stroke or mini stroke. The patient does take Eliquis. The patient does have an AICD in place and does follow with [facility] nephrology and cardiology. Patient states that he does have some leg swelling but it seems to be okay and states that his appetite and hydration is good. Patient denies any bloody stools or dark stools. Patient has had some intermittent palpitations for the last 2 days but currently have resolved. ROS: See HPI for pertinent positives and negatives. A total of 10 systems were reviewed and otherwise negative. Past medical history: See below Surgical history: See below Social history: See below Physical Exam: GENERAL: NAD, wearing a mask, non-toxic. EYE EXAM: Normal conjunctiva. PERRL, no anisocoria and EOM's grossly intact w/o pain. NECK: Supple, no nuchal rigidity, no adenopathy, non-tender. No signs of meningismus. FROM of the neck with good chin to chest and neck extension. No stridor. LUNGS: Clear to auscultation. Normal chest wall mechanics. HEART: NSR, systolic ejection murmur. ABDOMEN: Abdomen soft, non-tender, normo-active bowel sounds, no masses, no rebound or guarding. BACK: No CVA TTP. SKIN: No rashes and no bruising. UPPER EXTREMITIES: Upper extremities are grossly normal. LOWER EXTREMITIES: Grossly normal, 1+ symmetric lower extremity edema. NEURO EXAM: A&O x3, cranial nerves II-XII grossly intact, normal speech, moves all 4 extremities. Differential diagnoses: Infection, dehydration, metabolic abnormality, hypo/hyperglycemia, electrolyte disturbance, anemia, hypoxia, cardiac sources, intracerebral event, toxicologic, neurologic, as well as other pathologies. Course: Patient was seen and evaluated the bedside. Full history physical exam was performed. EKG interpreted by me Craig paced rhythm, rate of 63, wide QRS Imaging Studies: See Below Cardiac monitoring: An order was placed for continuous cardiac monitoring. The monitor shows a rate of 65 with paced rhythm. MDM: Patient presented due to concern for fatigue and possible vertigo the patient does not have vertigo at this time. The patient had complaints of shortness of breath. Blood work was obtained along with CT of the head and chest x-ray. Patient had a normal white count with hemoglobin of 8.3. The patient's hemoglobin has dropped almost 3 points since last time he was seen in August. The patient is up about 16 kg per the last time he was here. Patient's kidney function does show slightly worsening dysfunction from creatinine of 3.5 today is 4.3. Patient's glucose is elevated. The patient does have a positive trop onin and BNP. TSH is elevated but free T4 is normal. COVID-negative. I did perform a rectal exam which was heme positive. PPI bolus and drip ordered and patient was candid consented for blood. The patient was given 1 unit PRBCs to be given over approximately 3-1/2 hours given the patient's prior cardiac history and aortic stenosis. I did speak with the on-call hospitalist and the patient was admitted to the medicine service by Dr. Vazquez. Critical Care: I have personally spent 42 minutes of critical care time in direct management of this patient. This includes bedside care, interpretation of diagnostic studies, and testing, discussion with consultants, patient, and family members, and other require inpatient management activities. This 42 minutes is in excess of all separately billable procedures. Past Med/Surg History Medical History Aortic stenosis Severe aortic stenosis vs pseudo aortic stenosis due to low output per cardio note from 12/2019 ECHO - Follows - Dr Star Delatorre Asthma has inhalers Atrial fibrillation Eliquis CAD (coronary artery disease) "nonobstructive" Calciphylaxis Current wound of right lower leg - being [facility] - almost healed per . Chronic anemia Chronic kidney disease Stage 4, under surveillance by Dr. Mcdermott (no dialysis at this time) Chronic systolic (congestive) heart failure COPD (chronic obstructive pulmonary disease) 2L at night Diabetic neuropathy DM type 2 (diabetes mellitus, type 2) IDDM Dyslipidemia Gall stones GERD (gastroesophageal reflux disease) History of COVID-19 Dx 08/05/20(hospitalized at [facility]) > symptoms at time of cough, SOB, generalized weakness, n/v/d, loss of taste/smell > "resolved" History of multiple pulmonary nodules Hypertension LBBB (left bundle branch block) Follows Dr. Star Delatorre Nonischemic cardiomyopathy S/p BIV AICD in place; follows with Dr. Graves Presence of combination internal cardiac defibrillator (ICD) and pacemaker Implanted 5+ years ago, [employer], last check ~08/2021 Pulmonary HTN PVD (peripheral vascular disease) Sleep apnea + nocturnal hypoxia > BIPAP + 2L O2 HS Stroke 11/2019 > residual speech difficulty/short term memory issues Surgical History H/O cardiac catheterization Non nonobstructive CAD on 2016 cardiac cath H/O total adrenalectomy Left (25 years ago) History of colonoscopy History of esophagogastroduodenoscopy (EGD) History of permanent cardiac pacemaker placement pacemaker/defib - [employer] - Follows Dr. Graves - Last check ~08/2021 S/P debridement (01/08/21) Left Lower Extremity Medial and Lateral excisional Debridement ( greater than 20 sq. 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 How many Children do You have: 1 Feels Safe at Home: Yes Assistive Devices: BiPap Allergies Allergies Allergy/AdvReac Type Severity Reaction Status Date / Time prednisone AdvReac Severe BSG'S OVER Verified 10/11/21 10:57 400-CONFUSION, DISORIENTED Home Meds Home Medications Medication Instructions Recorded Confirmed aspirin 81 mg tablet,delayed 81 mg PO QAM 02/05/18 12/01/21 release pantoprazole 40 mg tablet,delayed 40 mg PO QAM 02/05/18 12/01/21 release (Protonix) albuterol sulfate 90 mcg/actuation 2 puff inhalation Q4H PRN 08/01/18 12/01/21 aerosol inhaler (ProAir HFA) Shortness Of Breath Or Wheezing fluticasone propionate 50 2 spray intranasal DAILY PRN Nasal 08/01/18 12/01/21 mcg/actuation nasal Congestion spray,suspension (Flonase Allergy Relief) ipratropium 0.5 mg-albuterol 3 mg 3 ml inhalation QID PRN Shortness 08/01/18 12/01/21 (2.5 mg base)/3 mL nebulization Of Breath Or Wheezing soln fluticasone furoate 100 1 inh inhalation QAM 03/02/20 12/01/21 mcg-vilanterol 25 mcg/dose inhalation powder (Breo Ellipta) atorvastatin 80 mg tablet 80 mg PO QPM 09/17/20 12/01/21 insulin lispro 100 unit/mL 0 sliding scale dose subcut TIDM 01/17/21 12/01/21 subcutaneous pen (Humalog KwikPen (U-100) Insulin) apixaban 2.5 mg tablet 2.5 mg PO BID 03/01/21 12/01/21 torsemide 20 mg tablet See Rx Instructions .Route .COMPLEX 04/24/21 12/01/21 potassium chloride 20 mEq 20 meq PO QPM 07/03/21 12/01/21 tablet,extended release insulin glargine 100 unit/mL (3 30 unit subcut BID 10/23/21 12/01/21 mL) subcutaneous pen (Lantus Solostar U-100 Insulin) Previous Rx's Medication Instructions Recorded metoprolol succinate 100 mg 100 mg PO BID #60 tabs 08/14/20 tablet,extended release 24 hr (Toprol XL) amiodarone 200 mg tablet 200 mg PO BIDM #60 tabs 07/12/21 Results & Data (ED) Vital Signs Vital Signs - 24 hr 12/01/21 17:04 12/01/21 17:24 12/01/21 17:43 Temperature 36.1 C L Temperature Source Temporal Artery Scan Pulse Rate 69 Pulse Rate [Finger] Respiratory Rate 16 Respiratory Effort / Characteristics Non-Labored Spontaneous Respiratory Depth Normal Blood Pressure 127/73 Blood Pressure [Right Arm] Blood Pressure Mean 91 Blood Pressure Mean [Right Arm] Pulse Oximetry 98 99 98 Oxygen Delivery Method Room Air Room Air Room Air Oxygen Flow Rate 0 Sepsis Recent Fever Within 48 Hours No Sepsis New/Unexplained Change in Mental Status No Sepsis Action Taken by Nursing No Action Required 12/01/21 17:30 12/01/21 19:00 Temperature Temperature Source Pulse Rate 72 Pulse Rate [Finger] 65 Respiratory Rate 25 H 20 Respiratory Effort / Characteristics Respiratory Depth Blood Pressure 130/74 Blood Pressure [Right Arm] 138/93 Blood Pressure Mean 92 Blood Pressure Mean [Right Arm] 108 Pulse Oximetry 97 98 Oxygen Delivery Method Room Air Oxygen Flow Rate Sepsis Recent Fever Within 48 Hours Sepsis New/Unexplained Change in Mental Status Sepsis Action Taken by [facility] Medications Current Medication List: was personally reviewed by me Laboratory Data Attestation: I reviewed the patient's lab results. Result diagrams: 12/01/21 17:21 12/01/21 17:21 Lab Results 12/01/21 12/01/21 12/01/21 Range/Units 17:21 17:21 17:21 WBC 4.57 L (4.8-10.8) K/ul RBC 3.56 L (4.63-6.08) M/uL Hgb 8.3 L (14.0-18.0) g/dl Hct 28.4 L (40.1-51.0) % MCV 79.8 L (80.0-100.0) fL MCH 23.3 L (25.0-34.0) pg MCHC 29.2 L (32.0-36.0) g/dL RDW Std Deviation 46.1 (36.4-46.3) fL RDW Coeff of Joey 15.9 H (11.5-14.5) % Plt Count 152 (130-400) K/uL MPV 9.7 (9.4-12.4) fL Immature Gran % (Auto) 0.7 % Neut % (Auto) 81.1 % Lymph % (Auto) 7.9 % Beauregard % (Auto) 8.1 % Eos % (Auto) 1.8 % Baso % (Auto) 0.4 % Neut # (Auto) 3.71 (1.4-6.5) K/uL Lymph # (Auto) 0.36 L (1.2-3.4) K/uL Beauregard # (Auto) 0.37 (0.24-0.82) K/uL Eos # (Auto) 0.08 (0-0.50) K/uL Baso # (Auto) 0.02 (0-0.2) K/uL Immature Gran # (Auto) 0.03 H (0.00-0.02) K/uL Sodium 140 (136-145) mmol/L Potassium 4.0 (3.5-5.1) mmol/L Chloride 104 (98-107) mmol/L Carbon Dioxide 26 (21-32) mmol/L Anion Gap 10 (3-11) BUN 78 H (6-23) mg/dl Creatinine 4.32 H (0.6-1.4) mg/dl Est Cr Clr Drug Dosing 20.1 ml/min Est GFR ( Amer) 15.3 ml/min Est GFR (Non-Af Amer) 13.2 ml/min BUN/Creatinine Ratio 18.1 (10-20) Glucose 236 H (70-99(Fasting)) mg/dl POC Glucose (70-99) mg/dl Calcium 8.8 (8.5-10.1) mg/dl Magnesium (1.7-2.4) mg/dl Total Bilirubin 0.8 (0.2-1.0) mg/dl AST 16 (13-39) U/L ALT 23 (7-52) U/L Alkaline Phosphatase 129 H (34-104) U/L Troponin I High Sens 30.0 H (0-20) pg/ml B-Natriuretic Peptide 1356 H (0-100) pg/ml Total Protein 6.6 (6.0-8.3) gm/dl Albumin 3.7 (3.4-5.0) gm/dl Globulin 2.9 (2.5-4.0) gm/dl Albumin/Globulin Ratio 1.3 (0.9-2) TSH (0.300-4.500) uIu/ml Free T4 (0.61-1.60) ng/dl SARS-CoV-2, RNA, NAAT (NEGATIVE) Blood Type Antibody Screen Crossmatch 12/01/21 12/01/21 12/01/21 Range/Units 17:21 17:21 17:47 WBC (4.8-10.8) K/ul RBC (4.63-6.08) M/uL Hgb (14.0-18.0) g/dl Hct (40.1-51.0) % MCV (80.0-100.0) fL MCH (25.0-34.0) pg MCHC (32.0-36.0) g/dL RDW Std Deviation (36.4-46.3) fL RDW Coeff of Joey (11.5-14.5) % Plt Count (130-400) K/uL MPV (9.4-12.4) fL Immature Gran % (Auto) % Neut % (Auto) % Lymph % (Auto) % Beauregard % (Auto) % Eos % (Auto) % Baso % (Auto) % Neut # (Auto) (1.4-6.5) K/uL Lymph # (Auto) (1.2-3.4) K/uL Beauregard # (Auto) (0.24-0.82) K/uL Eos # (Auto) (0-0.50) K/uL Baso # (Auto) (0-0.2) K/uL Immature Gran # (Auto) (0.00-0.02) K/uL Sodium (136-145) mmol/L Potassium (3.5-5.1) mmol/L Chloride (98-107) mmol/L Carbon Dioxide (21-32) mmol/L Anion Gap (3-11) BUN (6-23) mg/dl Creatinine (0.6-1.4) mg/dl Est Cr Clr Drug Dosing ml/min Est GFR ( Amer) ml/min Est GFR (Non-Af Amer) ml/min BUN/Creatinine Ratio (10-20) Glucose (70-99(Fasting)) mg/dl POC Glucose (70-99) mg/dl Calcium (8.5-10.1) mg/dl Magnesium 2.2 (1.7-2.4) mg/dl Total Bilirubin (0.2-1.0) mg/dl AST (13-39) U/L ALT (7-52) U/L Alkaline Phosphatase (34-104) U/L Troponin I High Sens (0-20) pg/ml B-Natriuretic Peptide (0-100) pg/ml Total Protein (6.0-8.3) gm/dl Albumin (3.4-5.0) gm/dl Globulin (2.5-4.0) gm/dl Albumin/Globulin Ratio (0.9-2) TSH 4.720 H (0.300-4.500) uIu/ml Free T4 1.21 (0.61-1.60) ng/dl SARS-CoV-2, RNA, NAAT NEGATIVE (NEGATIVE) Blood Type Antibody Screen Crossmatch 12/01/21 12/01/21 Range/Units 19:20 19:45 WBC (4.8-10.8) K/ul RBC (4.63-6.08) M/uL Hgb (14.0-18.0) g/dl Hct (40.1-51.0) % MCV (80.0-100.0) fL MCH (25.0-34.0) pg MCHC (32.0-36.0) g/dL RDW Std Deviation (36.4-46.3) fL RDW Coeff of Joey (11.5-14.5) % Plt Count (130-400) K/uL MPV (9.4-12.4) fL Immature Gran % (Auto) % Neut % (Auto) % Lymph % (Auto) % Beauregard % (Auto) % Eos % (Auto) % Baso % (Auto) % Neut # (Auto) (1.4-6.5) K/uL Lymph # (Auto) (1.2-3.4) K/uL Beauregard # (Auto) (0.24-0.82) K/uL Eos # (Auto) (0-0.50) K/uL Baso # (Auto) (0-0.2) K/uL Immature Gran # (Auto) (0.00-0.02) K/uL Sodium (136-145) mmol/L Potassium (3.5-5.1) mmol/L Chloride (98-107) mmol/L Carbon Dioxide (21-32) mmol/L Anion Gap (3-11) BUN (6-23) mg/dl Creatinine (0.6-1.4) mg/dl Est Cr Clr Drug Dosing ml/min Est GFR ( Amer) ml/min Est GFR (Non-Af Amer) ml/min BUN/Creatinine Ratio (10-20) Glucose (70-99(Fasting)) mg/dl POC Glucose 178 H (70-99) mg/dl Calcium (8.5-10.1) mg/dl Magnesium (1.7-2.4) mg/dl Total Bilirubin (0.2-1.0) mg/dl AST (13-39) U/L ALT (7-52) U/L Alkaline Phosphatase (34-104) U/L Troponin I High Sens (0-20) pg/ml B-Natriuretic Peptide (0-100) pg/ml Total Protein (6.0-8.3) gm/dl Albumin (3.4-5.0) gm/dl Globulin (2.5-4.0) gm/dl Albumin/Globulin Ratio (0.9-2) TSH (0.300-4.500) uIu/ml Free T4 (0.61-1.60) ng/dl SARS-CoV-2, RNA, NAAT (NEGATIVE) Blood Type A Positive Antibody Screen NEGATIVE Crossmatch See Detail Administered Medications Sodium Chloride (Nss 1000ml) 1,000 mls @ 40 mls/hr IV .Q24H ONE Stop: 12/02/21 19:20 Last Admin: 12/01/21 20:49 Dose: 40 mls/hr Documented By: HU Discontinued Medications Pantoprazole Sodium (Protonix Bolus/Drip) 0 mls @ 1 mls/hr IV ONE STA Stop: 12/01/21 18:54 Last Admin: 12/01/21 20:03 Dose: Not Given Documented By: HU Pantoprazole Sodium 40 mg/ (Dextrose) 100 mls @ 20 mls/hr IV Q5H [facility] Stop: 12/31/21 19:14 Last Admin: 12/01/21 20:03 Dose: Not Given Documented By: HU Pantoprazole Sodium 80 mg/ (Dextrose) 120 mls @ 400 mls/hr IV NOW ONE Stop: 12/01/21 19:10 Last Infusion: 12/01/21 20:23 Dose: 0 mls/hr Documented By: Admin: 12/01/21 20:03 Dose: 400 mls/hr Documented By: HU Pantoprazole Sodium 80 mg/ (Dextrose) 120 mls @ 400 mls/hr IV TODAY@1915 ONE Stop: 12/01/21 19:32 Last Admin: 12/01/21 20:03 Dose: Not Given Documented By: HU Imaging Data Radiologist's Impression: Chest X-Ray 12/01/21 17:33 XR chest 1V portable CLINICAL HISTORY: weakness. Evaluate cardiopulmonary status COMPARISON STUDY: 08/26/2021 TECHNIQUE: 1 view of the chest FINDINGS: Single frontal view of the chest demonstrates the heart to again be enlarged with ICD pacer in place. The lungs are clear of alveolar opacities. There is no evidence for pleural effusion. There is no evidence for vascular congestion. There is no acute osseous pathology. IMPRESSION: 1. No acute cardiopulmonary disease. ACT 112: Negative or not required by law. Electronically signed by: Cassius Barraza M.D. 12/01/2021 5:[address] 12/01/21 17:33 CT OF THE HEAD WITHOUT CONTRAST CLINICAL HISTORY: Vertigo. COMPARISON STUDY: MRI of the brain May 28, 2021. Head CT August 26, 2021. CT DOSE: 683.87 mGycm TECHNIQUE: Helical axial images of the head were obtained without IV contrast. Automated exposure control was utilized for the study. A dose lowering technique was utilized adhering to the principles of ALARA. FINDINGS: No acute intracranial hemorrhage, midline shift or mass effect is present. Extensive vascular calcification is incidentally noted. Encephalomalacia within left frontal lobe is unchanged. White matter hypodensities are similar to prior exam and favor small vessel disease. The ventricular system is unremarkable. The basal cisterns are patent. No extra- axial collections are present. There are no findings to suggest acute dural sinus thrombosis or acute territorial infarct. There are no significant calvarial abnormalities. Minimal sinus mucosal thickening is present. IMPRESSION: No acute intracranial findings. No change in appearance of the brain. ACT 112: Negative or not required by law. Electronically signed by: Balwinder Juarez M.D. 12/01/2021 6:06 PM Discharge Plan Visit Data Chief Complaint: Neuro Symptoms/Deficit Stated Complaint: DIZZINESS, LIGHTHEADED, OFF BALANCE ED Provider: Hai Miller Discharge Problem: Acute GI bleeding, Symptomatic anemia Patient Disposition: Admitted As Inpatient Discharge Instructions Interventions: ED Discharge Assessment Last Done: 12/01/21 22:10
[2021-12-01 17:45] LABS: Basophils # (auto) 0.02 K/uL (0-0.2); Basophils % (auto) 0.4 %; Eosinophils # (auto) 0.08 K/uL (0-0.50); Eosinophils % (auto) 1.8 %; Hematocrit (blood only) 28.4 % (40.1-51.0); Hemoglobin 8.3 g/dl (14.0-18.0); Immature Granulocytes # (auto) 0.03 K/uL (0.00-0.02); Immature Granulocytes % (auto) 0.7 %; Lymphocytes # (auto) 0.36 K/uL (1.2-3.4); Lymphocytes % (auto) 7.9 %; Mean Corpuscular Hemoglobin 23.3 pg (25.0-34.0); Mean Corpuscular Hgb Conc 29.2 g/dL (32.0-36.0); Mean Corpuscular Volume 79.8 fL (80.0-100.0); Mean Platelet Volume 9.7 fL (9.4-12.4); Monocytes # (auto) 0.37 K/uL (0.24-0.82); Monocytes % (auto) 8.1 %; Neutrophils # (auto) 3.71 K/uL (1.4-6.5); Neutrophils % (auto) 81.1 %; Platelet Count 152 K/uL (130-400); RDW Coefficient of Variation 15.9 % (11.5-14.5); RDW Standard Deviation 46.1 fL (36.4-46.3); Red Blood Count 3.56 M/uL (4.63-6.08); White Blood Count 4.57 K/ul (4.8-10.8)
--- NOTE | 2021-12-01 17:59 | XRay Report ---
XR chest 1V portable CLINICAL HISTORY: weakness. Evaluate cardiopulmonary status COMPARISON STUDY: 08/26/2021 TECHNIQUE: 1 view of the chest FINDINGS: Single frontal view of the chest demonstrates the heart to again be enlarged with ICD pacer in place. The lungs are clear of alveolar opacities. There is no evidence for pleural effusion. There is no ev idence for vascular congestion. There is no acute osseous pathology. IMPRESSION: 1. No acute cardiopulmonary disease. ACT 112: Negative or not required by law. Electronically signed by: Cassius Barraza M.D. 12/01/2021 5:57 PM
--- NOTE | 2021-12-01 18:07 | CT Scan Report ---
CT OF THE HEAD WITHOUT CONTRAST CLINICAL HISTORY: Vertigo. COMPARISON STUDY: MRI of the brain May 28, 2021. Head CT August 26, 2021. CT DOSE: 683.87 mGycm TECHNIQUE: Helical axial images of the head were obtained without IV contrast. Automated exposure con trol was utilized for the study. A dose lowering technique was utilized adhering to the principles o f ALARA. FINDINGS: No acute intracranial hemorrhage, midline shift or mass effect is present. Extensive vascul ar calcification is incidentally noted. Encephalomalacia within left frontal lobe is unchanged. White matter hypodensities are similar to prior exam and favor small vessel disease. The ventricular syste m is unremarkable. The basal cisterns are patent. No extra-axial collections are present. There are n o findings to suggest acute dural sinus thrombosis or acute territorial infarct. There are no signifi cant calvarial abnormalities. Minimal sinus mucosal thickening is present. IMPRESSION: No acute intracranial findings. No change in appearance of the brain. ACT 112: Negative or not required by law. Electronically signed by: Balwinder Juarez M.D. 12/01/2021 6:06 PM
[2021-12-01 18:22] LABS: Thyroid Stimulating Hormone 4.72 uIu/ml (0.300-4.500)
[2021-12-01 18:39] LABS: Albumin Globulin Ratio 1.3 (0.9-2); Albumin Level 3.7 gm/dl (3.4-5.0); BUN Creatinine Ratio 18.1 (10-20); Bilirubin,Total 0.8 mg/dl (0.2-1.0); Calcium 8.8 mg/dl (8.5-10.1); Creatinine Clr Calc Pharmacy 20.1 ml/min; Est GFR (African American) 15.3 ml/min; Est GFR (Non-African American) 13.2 ml/min; Globulin 2.9 gm/dl (2.5-4.0); Total Protein 6.6 gm/dl (6.0-8.3)
[2021-12-01] MEDS ORDERED: PANTOPRAZOLE BOLUS/DRIP 1 EACH IV STA (18:53)
[2021-12-01] MEDS ORDERED: PANTOprazole 80 MG in DEXTROSE 5% 100 ML IV ONE ×2 (18:53→19:15)
[2021-12-01] MEDS ORDERED: SODIUM CHLORIDE 0.9% 250 ML IV PRN (18:53)
[2021-12-01 18:58] LABS: T4 Free Thyroxine 1.21 ng/dl (0.61-1.60)
[2021-12-01] MEDS ORDERED: PANTOprazole 40 MG in DEXTROSE 5% 100 ML IV SCH (19:15)
[2021-12-01] MEDS ORDERED: SODIUM CHLORIDE 0.9% 1000ML 1,000 ML IV ONE (19:21)
--- NOTE | 2021-12-01 20:10 | History & Physical Report ---
Date of Service December 01, 2021 Assessment & Plan (1) Dizziness: Plan: Underlying orthostasis from severe as per outpatient documentation Complicated by symptomatic anemia Hemoglobin drop from baseline Occult GI bleed Patient predisposed by antiplatelet and NOAC Rx for vascular issues, A. fib HTN stable chronic systolic heart failure secondary to nonischemic cardiomyopathy, patient on the dry side ARF on CKD secondary to illness chronic LBBB History of choledocholithiasis, ERCP recommended after patient undergoes TAVR as per outpatient GI notes after discussion with [facility]. (Patient high risk candidate for cholecystectomy as per documentation.) DM2, insulin requiring reasonable control as of recent hemoglobin A1c of 7.22 Aug 2021 past tobacco abuse Med telemetry Follow-up response to first unit of PRBC transfused by ER provider check orthostatic vitals Appropriate to hold antiplatelet and NOAC Rx for now GI consult Re: occult GI bleed, hemoglobin drop from baseline N.p.o. after midnight in anticipation of endoscopic procedure Monitor creatinine response to gentle IV hydration Hold home diuretic until creatinine back to baseline Renal ultrasound, Nephrology consult if kidney function does not improve. Basal insulin adjusted for n.p.o. status, ISS BG goal 1 10-1 40, carb count coverage DVT prophylaxis. SCDs while Eliquis on hold Re: GI bleed Full code Patient requesting update providers. Jamison Lina Whitaker, contact #[phone]. Text document was generated using [employer] voice recognition software. It may contain grammatical or spelling errors. Kindly contact undersigned for clarification of any documentation item in question. History of Present Illness Chief Complaint: Worsening dizziness, shortness of breath on exertion Primary Care Provider: Mirlande Henning MD History obtained from patient, , and records. Medical history significant for chronic systolic heart failure secondary to nonischemic cardiomyopathy (EF of 40-45%, TTE 2021) status post ICD, chronic LBBB, hx nonocclusive CAD, hx VT, PVD as per records, hx embolic CVA, A. fib on on Eliquis, valvular heart disease (severe aortic stenosis, mild MR on recent TTE), HTN, COPD as per records, ARPIT on CPAP, pulmon jeniffer hypertension as per records, DM 2 insulin requiring, CRI (baseline creatinine of 3s), history of choledocholithiasis/gallstone pancreatitis, chronic anemia (baseline hemoglobin of 10-11), chronic thrombocytopenia. Last confinement July 2021 for shortness of breath and dizziness attributed to aortic stenosis. TAVR recommended over surgical AVR as per outpatient notes. Patient awaiting specialist appointment. Abnormal outpatient labs noted from November 22. (Hemoglobin of 8.5, serum creatinine 4.3.) Last few days, patient noted worsening dizziness described as lightheadedness/spinning/being off balance on getting up and shortness of breath on exertion. No chest pain, no SOB, no abdominal pain, no headache. No black/bloody stools noted at home. Patient brought by to ER for evaluation. FOBT at the ER was positive. IV PPI administered for GI bleed. 1 unit PRBC transfused at the ER. 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 Allergies Allergy/AdvReac Type Severity Reaction Status Date / Time prednisone AdvReac Severe BSG'S OVER Verified 10/11/21 10:57 400-CONFUSION, DISORIENTED Home Medications Medication Instructions Recorded Confirmed Type aspirin 81 mg tablet,delayed 81 mg PO QAM 02/05/18 12/01/21 History release pantoprazole 40 mg tablet,delayed 40 mg PO QAM 02/05/18 12/01/21 History release (Protonix) albuterol sulfate 90 mcg/actuation 2 puff inhalation Q4H PRN 08/01/18 12/01/21 History aerosol inhaler (ProAir HFA) Shortness Of Breath Or Wheezing fluticasone propionate 50 2 spray intranasal DAILY PRN Nasal 08/01/18 12/01/21 H istory mcg/actuation nasal Congestion spray,suspension (Flonase Allergy Relief) ipratropium 0.5 mg-albuterol 3 mg 3 ml inhalation QID PRN Shortness 08/01/18 12/01/21 History (2.5 mg base)/3 mL nebulization Of Breath Or Wheezing soln fluticasone furoate 100 1 inh inhalation QAM 03/02/20 12/01/21 History mcg-vilanterol 25 mcg/dose inhalation powder (Breo Ellipta) metoprolol succinate 100 mg 100 mg PO BID #60 tabs 08/14/20 12/01/21 Rx tablet,extended release 24 hr (Toprol XL) atorvastatin 80 mg tablet 80 mg PO QPM 09/17/20 12/01/21 History insulin lispro 100 unit/mL 0 sliding scale dose subcut TIDM 01/17/21 12/01/21 History subcutaneous pen (Humalog KwikPen (U-100) Insulin) apixaban 2.5 mg tablet 2.5 mg PO BID 03/01/21 12/01/21 History torsemide 20 mg tablet See Rx Instructions .Route .COMPLEX 04/24/21 12/01/21 History potassium chloride 20 mEq 20 meq PO QPM 07/03/21 12/01/21 History tablet,extended release amiodarone 200 mg tablet 200 mg PO BIDM #60 tabs 07/12/21 12/01/21 Rx insulin glargine 100 unit/mL (3 30 unit subcut BID 10/23/21 12/01/21 History mL) subcutaneous pen (Lantus Solostar U-100 Insulin) Past Med/Surg History Medical History Aortic stenosis Severe aortic stenosis vs pseudo aortic stenosis due to low output per cardio note from 12/2019 ECHO - Follows - Dr Star Delatorre Asthma has inhalers Atrial fibrillation Eliquis CAD (coronary artery disease) "nonobstructive" Calciphylaxis Current wound of right lower leg - being seen by [facility] - almost healed per . Chronic anemia Chronic kidney disease Stage 4, under surveillance by Dr. Mcdermott (no dialysis at this time) Chronic systolic (congestive) heart failure COPD (chronic obstructive pulmonary disease) 2L at night Diabetic neuropathy DM type 2 (diabetes mellitus, type 2) IDDM Dyslipidemia Gall stones GERD (gastroesophageal reflux disease) History of COVID-19 Dx 08/05/20(hospitalized at NH) > symptoms at time of cough, SOB, generalized weakness, n/v/d, loss of taste/smell > "resolved" History of multiple pulmonary nodules Hypertension LBBB (left bundle branch block) Follows Dr. Star Delatorre Nonischemic cardiomyopathy S/p BIV AICD in place; follows with Dr. Graves Presence of combination internal cardiac defibrillator (ICD) and pacemaker Implanted 5+ years ago, [employer], last check ~08/2021 Pulmonary HTN PVD (peripheral vascular disease) Sleep apnea + nocturnal hypoxia > BIPAP + 2L O2 HS Stroke 11/2019 > residual speech difficulty/short term memory issues Surgical History H/O cardiac catheterization Non nonobstructive CAD on 2016 cardiac cath H/O total adrenalectomy Left (25 years ago) History of colonoscopy History of esophagogastroduodenoscopy (EGD) History of permanent cardiac pacemaker placement pacemaker/defib - [employer] - Follows Dr. Graves - Last check ~08/2021 S/P debridement (01/08/21) Left Lower Extremity Medial and Lateral excisional Debridement ( greater than 20 sq. 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 How many Children do You have: 1 Feels Safe at Home: Yes Assistive Devices: BiPap Review of Systems Review of Systems: As per HPI, all other systems reviewed and negative Physical Exam Physical Exam: GENERAL: obese, no respiratory distress SKIN: Pallor, warm HEENT: Alopecia, pale palpebral conjunctivae, no ptosis, dry buccal mucosa NECK : Supple, short neck, no tenderness CHEST : Decreased breath sounds, no tenderness HEART : RRR, systolic murmur over second best heard over right intercostal space ABDOMEN: Some distention, nontender EXTREMITIES : Minimal LE swelling, no LE tenderness, no other conspicuous deformities noted NEUROLOGIC : Coherent, no facial asymmetry, gait and stance not assessed Results & Data Results & Data ([facility]) Vital Signs (Past 12 Hours) Vital Signs Temp Pulse Pulse Resp BP BP Pulse Ox 12/01/21 19:00 65 20 138/93 98 12/01/21 17:30 72 25 H 130/74 97 12/01/21 17:43 98 12/01/21 17:24 99 12/01/21 17:04 36.1 C L 69 16 127/73 98 O2 Del Method O2 Flow Rate 12/01/21 19:00 Room Air 12/01/21 17:30 12/01/21 17:43 Room Air 12/01/21 17:24 Room Air 0 12/01/21 17:04 Room Air Laboratory Results Laboratory Results WBC 4.57 K/ul (4.8-10.8) L 12/01/21 17:21 RBC 3.56 M/uL (4.63-6.08) L 12/01/21 17:21 Hgb 8.3 g/dl (14.0-18.0) L 12/01/21 17:21 Hct 28.4 % (40.1-51.0) L 12/01/21 17:21 MCV 79.8 fL (80.0-100.0) L 12/01/21 17:21 MCH 23.3 pg (25.0-34.0) L 12/01/21 17:21 MCHC 29.2 g/dL (32.0-36.0) L 12/01/21 17:21 RDW Std Deviation 46.1 fL (36.4-46.3) 12/01/21 17:21 RDW Coeff of Joey 15.9 % (11.5-14.5) H 12/01/21 17:21 Plt Count 152 K/uL (130-400) 12/01/21 17:21 MPV 9.7 fL (9.4-12.4) 12/01/21 17:21 Immature Gran % (Auto) 0.7 % 12/01/21 17:21 Neut % (Auto) 81.1 % 12/01/21 17:21 Lymph % (Auto) 7.9 % 12/01/21 17:21 Mckinley % (Auto) 8.1 % 12/01/21 17:21 Eos % (Auto) 1.8 % 12/01/21 17:21 Baso % (Auto) 0.4 % 12/01/21 17:21 Neut # (Auto) 3.71 K/uL (1.4-6.5) 12/01/21 17:21 Lymph # (Auto) 0.36 K/uL (1.2-3.4) L 12/01/21 17:21 Mckinley # (Auto) 0.37 K/uL (0.24-0.82) 12/01/21 17:21 Eos # (Auto) 0.08 K/uL (0-0.50) 12/01/21 17:21 Baso # (Auto) 0.02 K/uL (0-0.2) 12/01/21 17:21 Immature Gran # (Auto) 0.03 K/uL (0.00-0.02) H 12/01/21 17:21 Sodium 140 mmol/L (136-145) 12/01/21 17:21 Potassium 4.0 mmol/L (3.5-5.1) 12/01/21 17:21 Chloride 104 mmol/L (98-107) 12/01/21 17:21 Carbon Dioxide 26 mmol/L (21-32) 12/01/21 17:21 Anion Gap 10 (3-11) 12/01/21 17:21 BUN 78 mg/dl (6-23) H 12/01/21 17:21 Creatinine 4.32 mg/dl (0.6-1.4) H 12/01/21 17:21 Est Cr Clr Drug Dosing 20.1 ml/min 12/01/21 17:21 Est GFR ( Amer) 15.3 ml/min 12/01/21 17:21 Est GFR (Non-Af Amer) 13.2 ml/min 12/01/21 17:21 BUN/Creatinine Ratio 18.1 (10-20) 12/01/21 17:21 Glucose 236 mg/dl (70-99(Fasting)) H 12/01/21 17:21 POC Glucose 178 mg/dl (70-99) H 12/01/21 19:45 Calcium 8.8 mg/dl (8.5-10.1) 12/01/21 17:21 Magnesium 2.2 mg/dl (1.7-2.4) 12/01/21 17:21 Total Bilirubin 0.8 mg/dl (0.2-1.0) 12/01/21 17:21 AST 16 U/L (13-39) 08/14/22 17:21 ALT 23 U/L (7-52) 12/01/21 17:21 Alkaline Phosphatase 129 U/L (34-104) H 12/01/21 17:21 Troponin I High Sens 30.0 pg/ml (0-20) H 12/01/21 17:21 B-Natriuretic Peptide 1356 pg/ml (0-100) H 12/01/21 17:21 Total Protein 6.6 gm/dl (6.0-8.3) 12/01/21 17:21 Albumin 3.7 gm/dl (3.4-5.0) 12/01/21 17:21 Globulin 2.9 gm/dl (2.5-4.0) 12/01/21 17:21 Albumin/Globulin Ratio 1.3 (0.9-2) 12/01/21 17:21 TSH 4.720 uIu/ml (0.300-4.500) H 12/01/21 17:21 Free T4 1.21 ng/dl (0.61-1.60) 12/01/21 17:21 SARS-CoV-2, RNA, NAAT NEGATIVE (NEGATIVE) 12/01/21 17:47 Blood Type A Positive 12/01/21 19:20 Antibody Screen NEGATIVE 12/01/21 19:20 Crossmatch See Detail 12/01/21 19:20 Impressions Chest X-Ray 12/01/21 17:33 XR chest 1V portable CLINICAL HISTORY: weakness. Evaluate cardiopulmonary status COMPARISON STUDY: 08/26/2021 TECHNIQUE: 1 view of the chest FINDINGS: Single frontal view of the chest demonstrates the heart to again be enlarged with ICD pacer in place. The lungs are clear of alveolar opacities. There is no evidence for pleural effusion. There is no evidence for vascular congestion. There is no acute osseous pathology. IMPRESSION: 1. No acute cardiopulmonary disease. ACT 112: Negative or not required by law. Electronically signed by: Cassius Barraza M.D. 12/01/2021 5:[address] 12/01/21 17:33 CT OF THE HEAD WITHOUT CONTRAST CLINICAL HISTORY: Vertigo. COMPARISON STUDY: MRI of the brain May 28, 2021. Head CT August 26, 2021. CT DOSE: 683.87 mGycm TECHNIQUE: Helical axial images of the head were obtained without IV contrast. Automated exposure control was utilized for the study. A dose lowering technique was utilized adhering to the principles of ALARA. FINDINGS: No acute intracranial hemorrhage, midline shift or mass effect is present. Extensive vascular calcification is incidentally noted. Encephalomalacia within left frontal lobe is unchanged. White matter hypodensities are similar to prior exam and favor small vessel disease. The ventricular system is unremarkable. The basal cisterns are patent. No extra- axial collections are present. There are no findings to suggest acute dural sinus thrombosis or acute territorial infarct. There are no significant calvarial abnormalities. Minimal sinus mucosal thickening is present. IMPRESSION: No acute intracranial findings. No change in appearance of the brain. ACT 112: Negative or not required by law. Electronically signed by: Balwinder Juarez M.D. 12/01/2021 6:06 PM Diagnostic Findings EKG as per my interpretation : Rate 65, paced rhythm
[2021-12-01] MEDS ORDERED: GLUCOSE 40% GEL 15 GM TUBE PO PRN (22:10)
[2021-12-01] MEDS ORDERED: GLUCOSE 10 TAB/TUBE PO PRN (22:10)
[2021-12-01] MEDS ORDERED: GLUCAGON FOR INJ 1 MG VIAL SQ PRN (22:10)
[2021-12-01] MEDS ORDERED: PROMETHAZINE HCL 12.5 MG in SODIUM CHLORIDE 0.9% 50 ML IV PRN (22:10)
[2021-12-01] MEDS ORDERED: traMADol HCL 50 MG TABLET PO PRN (22:10)
[2021-12-01] MEDS ORDERED: CARBOHYDRATES FOR HYPOGLYCEMIA PO PRN (22:10)
[2021-12-01] MEDS ORDERED: DEXTROSE 50% 50 ML SYRINGE IV PRN (22:10)
[2021-12-01] MEDS ORDERED: ACETAMINOPHEN 325 MG TAB PO PRN (22:10)
[2021-12-01] MEDS ORDERED: FLUTICASONE PROPIONATE NA SPR 16 GM BTL PRN (22:19)
[2021-12-01] MEDS ORDERED: LANTUS PER UNIT CHARGE SQ STA (22:22)
[2021-12-01] MEDS ORDERED: FLUTICASONE/SALMETEROL (ADVAIR) 500/50 INH 14 PUFF INH SCH (22:30)
[2021-12-02] MEDS: METOPROLOL SUCC 25MG EXT REL TAB PO SCH ×3 (00:09→21:35)
[2021-12-02] MEDS: INSULIN ASPART PER UNIT SC SCH ×5 (00:10→20:30)
[2021-12-02 00:39] LABS: Appearance Urine Clear (Clear); Bacteria Urine Automated Negative (Negative); Bilirubin Urine Negative (Negative); Blood Urine Negative (Negative); Cast Urine Automated 0 /lpf (0-5); Color Urine Yellow; Glucose Urine UA Trace (Negative); Ketones Urine Negative (Negative); Leukocyte Esterase Urine Negative (Negative); Nitrite Urine Negative (Negative); Protein Urine 2+ (Negative); RBC Urine Automated 0-4 /hpf (0-4); Specific Gravity Urine 1.013 (1.000-1.030); Urobilinogen Urine Negative (Negative); pH Urine 5.5 (4.5-7.5)
[2021-12-02 06:22] LABS: Basophils # (auto) 0.03 K/uL (0-0.2); Basophils % (auto) 0.5 %; Eosinophils # (auto) 0.11 K/uL (0-0.50); Eosinophils % (auto) 1.7 %; Hematocrit (blood only) 30.8 % (40.1-51.0); Hemoglobin 9.4 g/dl (14.0-18.0); Immature Granulocytes # (auto) 0.03 K/uL (0.00-0.02); Immature Granulocytes % (auto) 0.5 %; Lymphocytes # (auto) 0.53 K/uL (1.2-3.4); Lymphocytes % (auto) 8.4 %; Mean Corpuscular Hemoglobin 23.7 pg (25.0-34.0); Mean Corpuscular Hgb Conc 30.5 g/dL (32.0-36.0); Mean Corpuscular Volume 77.8 fL (80.0-100.0); Mean Platelet Volume 9.5 fL (9.4-12.4); Monocytes # (auto) 0.62 K/uL (0.24-0.82); Monocytes % (auto) 9.8 %; Neutrophils # (auto) 4.98 K/uL (1.4-6.5); Neutrophils % (auto) 79.1 %; Platelet Count 157 K/uL (130-400); RDW Coefficient of Variation 15.8 % (11.5-14.5); RDW Standard Deviation 44.5 fL (36.4-46.3); Red Blood Count 3.96 M/uL (4.63-6.08)
[2021-12-02 07:05] LABS: BUN Creatinine Ratio 19.6 (10-20); Calcium 8.7 mg/dl (8.5-10.1); Creatinine Clr Calc Pharmacy 21.2 ml/min; Est GFR (African American) 16.4 ml/min; Est GFR (Non-African American) 14.1 ml/min; Potassium 3.9 mmol/L (3.5-5.1)
--- NOTE | 2021-12-02 08:34 | Gastrointestinal Consultation ---
Date of Consultation December 02, 2021 Assessment & Plan (1) Symptomatic anemia: 66 year old male with history systolic heart failure secondary to nonischemic cardiomyopathy (EF of 40-45%, TTE 2021) status post ICD, LBBB, nonocclusive CAD, embolic CVA, Afib anticoagulated on ASA/Eliquis, severe aortic stenosis, HTN, COPD, ARPIT on CPAP, pulmonary hypertension, T2DM, CKD, choledocholithiasis/gallstone pancreatitis, chronic anemia (baseline hemoglobin of 10-11 admitted w/ symptomatic anemia, HGB 8, requiring 1 unit RBC for HGB 9 this AM, he denies black or bloody stools. He recently was to have OP ERCP at [facility] as imaging showed CBD stone and CBD dilation, however, this was cancelled due to his cardiac disease by cardiology and anesthesia requesting should have his heart valve replaced prior to ERCP. His LFTs are normal. Would recommend ABD US this AM. If concerning for CBD stone, pending anesthesia and cardiac clearance, we can perform EGD/ERCP Thursday. If ABD US negative, would recommend EGD/Colonoscopy Thursday. Can have clear liquids. Please hold ASA/Eliquis Trend HGB Monitor output Transfuse PRN per primary team PO PPI BID Thank you for allowing us to participate in the care of this patient. Please call with any acute changes, questions or concerns. Please see addendum below wi th additional recommendation from my supervising physician. Supervising Physician Co-Signing Physician Notes I performed a history and physical examination of the patient today, including specifically on physical exam - soft abdomen. I have discussed the patient's management with the advanced practitioner. Please refer to the nurse practitioner's note for the documented findings and plan of care. Patient with severe , on AC and has anemia without overt GI bleeding. He needs EGD/ Colonoscopy however after discussing with Cardiology this should be done at [facility] and he needs his TAVR done as well. His sono showed normal size CBD hence he should have EUS at the same time of EGD/colonoscopy instead of doing an ERCP as previously planned. Recall GI if needed. History of Present Illness Reason for Consultation: anemia Requesting Physician: Bong Attending Physician: Karol Woody MD History of Present Illness 66 year old male with history of systolic heart failure secondary to nonischemic cardiomyopathy (EF of 40-45%, TTE 2021) status post ICD, LBBB, nonocclusive CAD, embolic CVA, Afib anticoagulated on ASA/Eliquis, severe aortic stenosis, HTN, COPD, ARPIT on CPAP, pulmonary hypertension, T2DM, CKD, choledocholithiasis/gallstone pancreatitis, chronic anemia (baseline hemoglobin of 10-11) presenting to the ED w/ weakness, fatigue and dizziness, admitted with anemia, concern for obscure GI Bleeding. GI was asked to evaluate. Pt was seen and evaluated in the ED. Notes from a GI standpoint, he feels okay. He denies any issues with abdominal pain. No nausea, vomiting. No GERD. Denies dysphagia. He does have chronic constipation. He notes he moves his bowels once every 2/3 days. He does not assess his stools so he is unable to confidently confirm he has not had any black or bloody stools. No fever, chill, CP ,SOB. HGB 11--> 8 --> 1 unit RBCs --> 9.4 BUN 80 w/ DESCRIPTIVE CATALOG LIBRARIAN 4 No recent ABD imaging Of note, he had EGD/EUS 2019 at [facility], normal CBD, ABD US in 2021 questioned dilated CBD with stone. He was to have ERCP at [facility] but this was canceled in light of his cardiac disease per cardiology and anesthesiology recommendations he should have his heart valve replaced prior to ERCP. ABD US 2021: Choledocholithiasis. Intrahepatic and extrahepatic bile duct dilat ion.Cholelithiasis. ERCP 2021: cancelled at [facility] due per cardiology and anesthesiology recommendations he should have his heart valve replaced prior to ERCP EGD/EUS 2019: There was no sign of significant pathology in the ampulla. - There was no sign of significant pathology in the common bile duct. - Many stones were visualized endosonographically in the gallbladder. - There was no evidence of significant pathology in the visualized portion of the liver. - Endosonographic images of the left adrenal gland were unremarkable. - Pancreatic parenchymal abnormalities consisting of lobularity were noted in the pancreatic head. - There was no sign of significant pathology in the pancreatic body, pancreatic tail and main pancreatic duct. - No specimens collected. EGD 2016: Normal esophagus. - Z-line regular, 38 cm from the incisors. - Gastritis. Biopsied. - Normal examined duodenum. Biopsied Colonoscopy 2017: - The examined portion of the ileum was normal. - One 7 mm polyp in the transverse colon, removed with a hot snare. Resected and retrieved. - Internal hemorrhoids. - The examination was otherwise normal. Allergies Allergy/AdvReac Type Severity Reaction Status Date / Time prednisone AdvReac Severe BSG'S OVER Verified 10/11/21 10:57 400-CONFUSION, DISORIENTED Home Medications Medication Instructions Recorded Confirmed Type aspirin 81 mg tablet,delayed 81 mg PO QAM 02/05/18 12/01/21 History release pantoprazole 40 mg tablet,delayed 40 mg PO QAM 02/05/18 12/01/21 History release (Protonix) albuterol sulfate 90 mcg/actuation 2 puff inhalation Q4H PRN 08/01/18 12/01/21 History aerosol inhaler (ProAir HFA) Shortness Of Breath Or Wheezing fluticasone propionate 50 2 spray intranasal DAILY PRN Nasal 08/01/18 12/01/21 History mcg/actuation nasal Congestion spray,suspension (Flonase Allergy Relief) ipratropium 0.5 mg-albuterol 3 mg 3 ml inhalation QID PRN Shortness 08/01/18 12/01/21 History (2.5 mg base)/3 mL nebulization Of Breath Or Wheezing soln fluticasone furoate 100 1 inh inhalation QAM 03/02/20 12/01/21 History mcg-vilanterol 25 mcg/dose inhalation powder (Breo Ellipta) metoprolol succinate 100 mg 100 mg PO BID #60 tabs 08/14/20 12/01/21 Rx tablet,extended release 24 hr (Toprol XL) atorvastatin 80 mg tablet 80 mg PO QPM 09/17/20 12/01/21 History insulin lispro 100 unit/mL 0 sliding scale dose subcut TIDM 01/17/21 12/01/21 History subcutaneous pen (Humalog KwikPen (U-100) Insulin) apixaban 2.5 mg tablet 2.5 mg PO BID 03/01/21 12/01/21 History torsemide 20 mg tablet See Rx Instructions .Route .COMPLEX 04/24/21 12/01/21 History potassium chloride 20 mEq 20 meq PO QPM 07/03/21 12/01/21 History tablet,extended release amiodarone 200 mg tablet 200 mg PO BIDM #60 tabs 07/12/21 12/01/21 Rx insulin glargine 100 unit/mL (3 30 unit subcut BID 10/23/21 12/01/21 History mL) subcutaneous pen (Lantus Solostar U-100 Insulin) Patient History Medical History Aortic stenosis Severe aortic stenosis vs pseudo aortic stenosis due to low output per cardio note from 12/2019 ECHO - Follows - Dr Star Delatorre Asthma has inhalers Atrial fibrillation Eliquis CAD (coronary artery disease) "nonobstructive" Calciphylaxis Current wound of right lower leg - being [facility] - almost healed per . Chronic anemia Chronic kidney disease Stage 4, under surveillance by Dr. Mcdermott (no dialysis at this time) Chronic systolic (congestive) heart failure COPD (chronic obstructive pulmonary disease) 2L at night Diabetic neuropathy DM type 2 (diabetes mellitus, type 2) IDDM Dyslipidemia Gall stones GERD (gastroesophageal reflux disease) History of COVID-19 Dx 08/05/20(hospitalized at [facility]) > symptoms at time of cough, SOB, generalized weakness, n/v/d, loss of taste/smell > "resolved" History of multiple pulmonary nodules Hypertension LBBB (left bundle branch block) Follows Dr. Star Delatorre Nonischemic cardiomyopathy S/p BIV AICD in place; follows with Dr. Graves Presence of combination internal cardiac defibrillator (ICD) and pacemaker Implanted 5+ years ago, [employer], last check ~08/2021 Pulmonary HTN PVD (peripheral vascular disease) Sleep apnea + nocturnal hypoxia > BIPAP + 2L O2 HS Stroke 11/2019 > residual speech difficulty/short term memory issues Surgical History H/O cardiac catheterization Non nonobstructive CAD on 2017 cardiac cath H/O total adrenalectomy Left (25 years ago) History of colonoscopy History of esophagogastroduodenoscopy (EGD) History of permanent cardiac pacemaker placement pacemaker/defib - Medronic - Follows Dr. Graves - Last check ~08/2021 S/P debridement (01/08/21) Left Lower Extremity Medial and Lateral excisional Debridement ( greater than 20 sq. 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 How many Children do You have: 1 Feels Safe at Home: Yes Assistive Devices: Hospital Bed Review of Systems Review of Systems: All systems reviewed & are unremarkable except as noted in HPI & below Physical Exam Constitutional: WD/WN, vitals as above Respiratory: normal respiratory effort, lungs clear to auscultation Cardiovascular: Rate/Rhythm: regular rate and regular rhythm Heart Sounds: + murmur Gastrointestinal (Abdomen): normal bowel sounds, soft, nontender, no hepatosplenomegaly Skin: no rashes, warm and dry Results & Data ([facility]) Vital Signs (Past 12 Hours) Vital Signs Temp Pulse Pulse Resp BP BP Pulse Ox 12/02/21 07:56 69 27 H 98 12/02/21 05:34 75 25 H 100 12/02/21 04:14 70 18 140/82 98 12/01/21 23:40 36.6 C 74 20 138/99 100 12/01/21 22:41 36.6 C 70 18 134/81 99 12/01/21 21:41 36.6 C 64 20 135/79 97 12/01/21 21:11 36.5 C 62 20 149/87 H 98 12/01/21 20:56 36.4 C L 66 18 145/88 H 100 12/01/21 20:34 36.4 C L 67 24 143/87 H 99 O2 Del Method O2 Flow Rate 12/02/21 07:56 2 12/02/21 05:34 2 12/02/21 04:14 Room Air 12/01/21 23:40 12/01/21 22:41 12/01/21 21:41 12/01/21 21:11 12/01/21 20:56 12/01/21 20:34 Laboratory Results 12/02/21 12/02/21 12/02/21 Range/Units 08:31 05:38 05:38 WBC 6.30 (4.8-10.8) K/ul RBC 3.96 L (4.63-6.08) M/uL Hgb 9.4 L (14.0-18.0) g/dl Hct 30.8 L (40.1-51.0) % MCV 77.8 L (80.0-100.0) fL MCH 23.7 L (25.0-34.0) pg MCHC 30.5 L (32.0-36.0) g/dL RDW Std Deviation 44.5 (36.4-46.3) fL RDW Coeff of Joey 15.8 H (11.5-14.5) % Plt Count 157 (130-400) K/uL MPV 9.5 (9.4-12.4) fL Immature Gran % (Auto) 0.5 % Neut % (Auto) 79.1 % Lymph % (Auto) 8.4 % [place] % (Auto) 9.8 % Eos % (Auto) 1.7 % Baso % (Auto) 0.5 % Neut # (Auto) 4.98 (1.4-6.5) K/uL Lymph # (Auto) 0.53 L (1.2-3.4) K/uL [place] # (Auto) 0.62 (0.24-0.82) K/uL Eos # (Auto) 0.11 (0-0.50) K/uL Baso # (Auto) 0.03 (0-0.2) K/uL Immature Gran # (Auto) 0.03 H (0.00-0.02) K/uL Sodium 141 (136-145) mmol/L Potassium 3.9 (3.5-5.1) mmol/L Chloride 105 (98-107) mmol/L Carbon Dioxide 25 (21-32) mmol/L Anion Gap 11 (3-11) BUN 80 H (6-23) mg/dl Creatinine 4.09 H (0.6-1.4) mg/dl Est Cr Clr Drug Dosing 21.2 ml/min Est GFR ( Amer) 16.4 ml/min Est GFR (Non-Af Amer) 14.1 ml/min BUN/Creatinine Ratio 19.6 (10-20) Glucose 81 (70-99(Fasting)) mg/dl POC Glucose 74 (70-99) mg/dl Calcium 8.7 (8.5-10.1) mg/dl Magnesium (1.7-2.4) mg/dl Total Bilirubin (0.2-1.0) mg/dl AST (13-39) U/L ALT (7-52) U/L Alkaline Phosphatase (34-104) U/L Troponin I High Sens (0-20) pg/ml B-Natriuretic Peptide (0-100) pg/ml Total Protein (6.0-8.3) gm/dl Albumin (3.4-5.0) gm/dl Globulin (2.5-4.0) gm/dl Albumin/Globulin Ratio (0.9-2) TSH (0.300-4.500) uIu/ml Free T4 (0.61-1.60) ng/dl Urine Color Urine Appearance (Clear) Urine pH (4.5-7.5) Ur Specific [place] (1.000-1.030) Urine Protein (Negative) Urine Glucose (UA) (Negative) Urine Ketones (Negative) Urine Blood (Negative) Urine Nitrite (Negative) Urine Bilirubin (Negative) Urine Urobilinogen (Negative) Ur Leukocyte Esterase (Negative) Urine WBC (Auto) (0-5) /hpf Urine RBC (Auto) (0-4) /hpf U Hyaline Cast (Auto) (0-5) /lpf U Epithel Cells (Auto) (0-5) /lpf Urine Bacteria (Auto) (Negative) SARS-CoV-2, RNA, NAAT (NEGATIVE) Blood Type Antibody Screen Crossmatch 12/02/21 12/02/21 12/01/21 Range/Units 02:33 00:25 23:55 WBC (4.8-10.8) K/ul RBC (4.63-6.08) M/uL Hgb (14.0-18.0) g/dl Hct (40.1-51.0) % MCV (80.0-100.0) fL MCH (25.0-34.0) pg MCHC (32.0-36.0) g/dL RDW Std Deviation (36.4-46.3) fL RDW Coeff of Joey (11.5-14.5) % Plt Count (130-400) K/uL MPV (9.4-12.4) fL Immature Gran % (Auto) % Neut % (Auto) % Lymph % (Auto) % [place] % (Auto) % Eos % (Auto) % Baso % (Auto) % Neut # (Auto) (1.4-6.5) K/uL Lymph # (Auto) (1.2-3.4) K/uL [place] # (Auto) (0.24-0.82) K/uL Eos # (Auto) (0-0.50) K/uL Baso # (Auto) (0-0.2) K/uL Immature Gran # (Auto) (0.00-0.02) K/uL Sodium (136-145) mmol/L Potassium (3.5-5.1) mmol/L Chloride (98-107) mmol/L Carbon Dioxide (21-32) mmol/L Anion Gap (3-11) BUN (6-23) mg/dl Creatinine (0.6-1.4) mg/dl Est Cr Clr Drug Dosing ml/min Est GFR ( Amer) ml/min Est GFR (Non-Af Amer) ml/min BUN/Creatinine Ratio (10-20) Glucose (70-99(Fasting)) mg/dl POC Glucose 105 H 158 H (70-99) mg/dl Calcium (8.5-10.1) mg/dl Magnesium (1.7-2.4) mg/dl Total Bilirubin (0.2-1.0) mg/dl AST (13-39) U/L ALT (7-52) U/L Alkaline Phosphatase (34-104) U/L Troponin I High Sens (0-20) pg/ml B-Natriuretic Peptide (0-100) pg/ml Total Protein (6.0-8.3) gm/dl Albumin (3.4-5.0) gm/dl Globulin (2.5-4.0) gm/dl Albumin/Globulin Ratio (0.9-2) TSH (0.300-4.500) uIu/ml Free T4 (0.61-1.60) ng/dl Urine Color Yellow Urine Appearance Clear (Clear) Urine pH 5.5 (4.5-7.5) Ur Specific [place] 1.013 (1.000-1.030) Urine Protein 2+ H (Negative) Urine Glucose (UA) Trace H (Negative) Urine Ketones Negative (Negative) Urine Blood Negative (Negative) Urine Nitrite Negative (Negative) Urine Bilirubin Negative (Negative) Urine Urobilinogen Negative (Negative) Ur Leukocyte Esterase Negative (Negative) Urine WBC (Auto) 1-5 (0-5) /hpf Urine RBC (Auto) 0-4 (0-4) /hpf U Hyaline Cast (Auto) 0 (0-5) /lpf U Epithel Cells (Auto) 10-20 H (0-5) /lpf Urine Bacteria (Auto) Negative (Negative) SARS-CoV-2, RNA, NAAT (NEGATIVE) Blood Type Antibody Screen Crossmatch 12/01/21 12/01/21 12/01/21 Range/Units 19:45 19:20 17:47 WBC (4.8-10.8) K/ul RBC (4.63-6.08) M/uL Hgb (14.0-18.0) g/dl Hct (40.1-51.0) % MCV (80.0-100.0) fL MCH (25.0-34.0) pg MCHC (32.0-36.0) g/dL RDW Std Deviation (36.4-46.3) fL RDW Coeff of Joey (11.5-14.5) % Plt Count (130-400) K/uL MPV (9.4-12.4) fL Immature Gran % (Auto) % Neut % (Auto) % Lymph % (Auto) % [place] % (Auto) % Eos % (Auto) % Baso % (Auto) % Neut # (Auto) (1.4-6.5) K/uL Lymph # (Auto) (1.2-3.4) K/uL [place] # (Auto) (0.24-0.82) K/uL Eos # (Auto) (0-0.50) K/uL Baso # (Auto) (0-0.2) K/uL Immature Gran # (Auto) (0.00-0.02) K/uL Sodium (136-145) mmol/L Potassium (3.5-5.1) mmol/L Chloride (98-107) mmol/L Carbon Dioxide (21-32) mmol/L Anion Gap (3-11) BUN (6-23) mg/dl Creatinine (0.6-1.4) mg/dl Est Cr Clr Drug Dosing ml/min Est GFR ( Amer) ml/min Est GFR (Non-Af Amer) ml/min BUN/Creatinine Ratio (10-20) Glucose (70-99(Fasting)) mg/dl POC Glucose 178 H (70-99) mg/dl Calcium (8.5-10.1) mg/dl Magnesium (1.7-2.4) mg/dl Total Bilirubin (0.2-1.0) mg/dl AST (13-39) U/L ALT (7-52) U/L Alkaline Phosphatase (34-104) U/L Troponin I High Sens (0-20) pg/ml B-Natriuretic Peptide (0-100) pg/ml Total Protein (6.0-8.3) gm/dl Albumin (3.4-5.0) gm/dl Globulin (2.5-4.0) gm/dl Albumin/Globulin Ratio (0.9-2) TSH (0.300-4.500) uIu/ml Free T4 (0.61-1.60) ng/dl Urine Color Urine Appearance (Clear) Urine pH (4.5-7.5) Ur Specific [place] (1.000-1.030) Urine Protein (Negative) Urine Glucose (UA) (Negative) Urine Ketones (Negative) Urine Blood (Negative) Urine Nitrite (Negative) Urine Bilirubin (Negative) Urine Urobilinogen (Negative) Ur Leukocyte Esterase (Negative) Urine WBC (Auto) (0-5) /hpf Urine RBC (Auto) (0-4) /hpf U Hyaline Cast (Auto) (0-5) /lpf U Epithel Cells (Auto) (0-5) /lpf Urine Bacteria (Auto) (Negative) SARS-CoV-2, RNA, NAAT NEGATIVE (NEGATIVE) Blood Type A Positive Antibody Screen NEGATIVE Crossmatch See Detail 12/01/21 12/01/21 12/01/21 Range/Units 17:21 17:21 17:21 WBC (4.8-10.8) K/ul RBC (4.63-6.08) M/uL Hgb (14.0-18.0) g/dl Hct (40.1-51.0) % MCV (80.0-100.0) fL MCH (25.0-34.0) pg MCHC (32.0-36.0) g/dL RDW Std Deviation (36.4-46.3) fL RDW Coeff of Joey (11.5-14.5) % Plt Count (130-400) K/uL MPV (9.4-12.4) fL Immature Gran % (Auto) % Neut % (Auto) % Lymph % (Auto) % [place] % (Auto) % Eos % (Auto) % Baso % (Auto) % Neut # (Auto) (1.4-6.5) K/uL Lymph # (Auto) (1.2-3.4) K/uL [place] # (Auto) (0.24-0.82) K/uL Eos # (Auto) (0-0.50) K/uL Baso # (Auto) (0-0.2) K/uL Immature Gran # (Auto) (0.00-0.02) K/uL Sodium (136-145) mmol/L Potassium (3.5-5.1) mmol/L Chloride (98-107) mmol/L Carbon Dioxide (21-32) mmol/L Anion Gap (3-11) BUN (6-23) mg/dl Creatinine (0.6-1.4) mg/dl Est Cr Clr Drug Dosing ml/min Est GFR ( Amer) ml/min Est GFR (Non-Af Amer) ml/min BUN/Creatinine Ratio (10-20) Glucose (70-99(Fasting)) mg/dl POC Glucose (70-99) mg/dl Calcium (8.5-10.1) mg/dl Magnesium 2.2 (1.7-2.4) mg/dl Total Bilirubin (0.2-1.0) mg/dl AST (13-39) U/L ALT (7-52) U/L Alkaline Phosphatase (34-104) U/L Troponin I High Sens (0-20) pg/ml B-Natriuretic Peptide 1356 H (0-100) pg/ml Total Protein (6.0-8.3) gm/dl Albumin (3.4-5.0) gm/dl Globulin (2.5-4.0) gm/dl Albumin/Globulin Ratio (0.9-2) TSH 4.720 H (0.300-4.500) uIu/ml Free T4 1.21 (0.61-1.60) ng/dl Urine Color Urine Appearance (Clear) Urine pH (4.5-7.5) Ur Specific [place] (1.000-1.030) Urine Protein (Negative) Urine Glucose (UA) (Negative) Urine Ketones (Negative) Urine Blood (Negative) Urine Nitrite (Negative) Urine Bilirubin (Negative) Urine Urobilinogen (Negative) Ur Leukocyte Esterase (Negative) Urine WBC (Auto) (0-5) /hpf Urine RBC (Auto) (0-4) /hpf U Hyaline Cast (Auto) (0-5) /lpf U Epithel Cells (Auto) (0-5) /lpf Urine Bacteria (Auto) (Negative) SARS-CoV-2, RNA, NAAT (NEGATIVE) Blood Type Antibody Screen Crossmatch 12/01/21 12/01/21 Range/Units 17:21 17:21 WBC 4.57 L (4.8-10.8) K/ul RBC 3.56 L (4.63-6.08) M/uL Hgb 8.3 L (14.0-18.0) g/dl Hct 28.4 L (40.1-51.0) % MCV 79.8 L (80.0-100.0) fL MCH 23.3 L (25.0-34.0) pg MCHC 29.2 L (32.0-36.0) g/dL RDW Std Deviation 46.1 (36.4-46.3) fL RDW Coeff of Joey 15.9 H (11.5-14.5) % Plt Count 152 (130-400) K/uL MPV 9.7 (9.4-12.4) fL Immature Gran % (Auto) 0.7 % Neut % (Auto) 81.1 % Lymph % (Auto) 7.9 % [place] % (Auto) 8.1 % Eos % (Auto) 1.8 % Baso % (Auto) 0.4 % Neut # (Auto) 3.71 (1.4-6.5) K/uL Lymph # (Auto) 0.36 L (1.2-3.4) K/uL [place] # (Auto) 0.37 (0.24-0.82) K/uL Eos # (Auto) 0.08 (0-0.50) K/uL Baso # (Auto) 0.02 (0-0.2) K/uL Immature Gran # (Auto) 0.03 H (0.00-0.02) K/uL Sodium 140 (136-145) mmol/L Potassium 4.0 (3.5-5.1) mmol/L Chloride 104 (98-107) mmol/L Carbon Dioxide 26 (21-32) mmol/L Anion Gap 10 (3-11) BUN 78 H (6-23) mg/dl Creatinine 4.32 H (0.6-1.4) mg/dl Est Cr Clr Drug Dosing 20.1 ml/min Est GFR ( Amer) 15.3 ml/min Est GFR (Non-Af Amer) 13.2 ml/min BUN/Creatinine Ratio 18.1 (10-20) Glucose 236 H (70-99(Fasting)) mg/dl POC Glucose (70-99) mg/dl Calcium 8.8 (8.5-10.1) mg/dl Magnesium (1.7-2.4) mg/dl Total Bilirubin 0.8 (0.2-1.0) mg/dl AST 16 (13-39) U/L ALT 23 (7-52) U/L Alkaline Phosphatase 129 H (34-104) U/L Troponin I High Sens 30.0 H (0-20) pg/ml B-Natriuretic Peptide (0-100) pg/ml Total Protein 6.6 (6.0-8.3) gm/dl Albumin 3.7 (3.4-5.0) gm/dl Globulin 2.9 (2.5-4.0) gm/dl Albumin/Globulin Ratio 1.3 (0.9-2) TSH (0.300-4.500) uIu/ml Free T4 (0.61-1.60) ng/dl Urine Color Urine Appearance (Clear) Urine pH (4.5-7.5) Ur Specific [place] (1.000-1.030) Urine Protein (Negative) Urine Glucose (UA) (Negative) Urine Ketones (Negative) Urine Blood (Negative) Urine Nitrite (Negative) Urine Bilirubin (Negative) Urine Urobilinogen (Negative) Ur Leukocyte Esterase (Negative) Urine WBC (Auto) (0-5) /hpf Urine RBC (Auto) (0-4) /hpf U Hyaline Cast (Auto) (0-5) /lpf U Epithel Cells (Auto) (0-5) /lpf Urine Bacteria (Auto) (Negative) SARS-CoV-2, RNA, NAAT (NEGATIVE) Blood Type Antibody Screen Crossmatch
[2021-12-02] MEDS: AMIODARONE 200 MG TAB PO SCH ×2 (08:37→19:32)
[2021-12-02] MEDS ORDERED: LANTUS PER UNIT CHARGE SQ SCH ×2 (09:00→21:00)
[2021-12-02] MEDS ORDERED: FLUTICASONE/VILANTEROL 100/25MCG 14 PUFFS/INHALER INH SCH (09:00)
[2021-12-02] MEDS ORDERED: PANTOprazole 40 MG TAB PO SCH ×2 (09:00→21:00)
--- NOTE | 2021-12-02 09:20 | Electrocardiogram Report ---
Test Reason : Blood Pressure : / mmHG Vent. Rate : 063 BPM Atrial Rate : 227 BPM P-R Int : 000 ms QRS Dur : 190 ms QT Int : 570 ms P-R-T Axes : 000 213 -63 degrees QTc Int : 583 ms Ventricular-paced rhythm with occasional AV dual-paced complexes Abnormal ECG When compared with ECG of 26-AUG-2021 17:44, Vent. rate has decreased BY 8 BPM Confirmed by Javier Sharma ([id number]) on 12/02/2021 9:20:02 AM Referred By: REFERRED SELF Confirmed By:Javier Sharma
--- NOTE | 2021-12-02 09:30 | Electrocardiogram Report ---
Test Reason : Blood Pressure : / mmHG Vent. Rate : 090 BPM Atrial Rate : 091 BPM P-R Int : 000 ms QRS Dur : 188 ms QT Int : 508 ms P-R-T Axes : 000 182 -06 degrees QTc Int : 621 ms Ventricular-paced rhythm Abnormal ECG When compared with ECG of 01-DEC-2021 17:46, (unconfirmed) Vent. rate has increased BY 27 BPM Confirmed by aJvier Sharma ([id number]) on 12/02/2021 9:30:17 AM Referred By: REFERRED SELF Confirmed By:Javier Sharma
--- NOTE | 2021-12-02 10:03 | Ultrasound Report ---
US abdomen limited HISTORY: 66 years-old Male US 09/2021 o[facility] ?CBD stone and biliary dilation COMPARISON: CT abdomen and pelvis 09/17/2020 TECHNIQUE: Multiple real-time sonographic images of the abdominal right upper quadrant were obtained assessing grayscale appearance and color flow FINDINGS: The pancreas is mostly obscured by bowel gas. The liver measures 18.7 cm in length and is unremarkabl e. Cholelithiasis is noted without gallbladder wall thickening or pericholecystic fluid. Negative son ographic Baumann's sign. Normal common bile duct, 6 mm. The imaged right kidney measures 13.2 cm in length and demonstrates diffuse cortical thinning with de creased corticomedullary differentiation. Cyst within the right kidney measure up to 1.9 cm. IMPRESSION: 1. Cholelithiasis without sonographic evidence of acute cholecystitis. 2. No biliary ductal dilation. 3. Diffuse cortical thinning of the right kidney redemonstrated. ACT 112: Negative or not required by law. The above report was generated using voice recognition software. It may contain grammatical, syntax o r spelling errors. Electronically signed by: Geovanni Go M.D. 12/02/2021 10:02 AM
--- NOTE | 2021-12-02 12:30 | Cardiology Consultation ---
Date of Consultation December 02, 2021 Assessment & Plan (1) Preop cardiovascular exam: (2) Symptomatic anemia: (3) Severe aortic stenosis: (4) Chronic systolic (congestive) heart failure: (5) Chronic atrial fibrillation: (6) CKD (chronic kidney disease) stage 4, GFR 15-29 ml/min: (7) Elevated troponin I level: (8) Presence of combination internal cardiac defibrillator (ICD) and pacemaker: Plan Complex 66-year-old male presents to the emergency department due to dizziness and ongoing balance issues. I suspect symptoms attributed to severe, possibly critical, aortic valve stenosis in the setting of symptomatic anemia. There are no signs/symptoms of GI blood loss currently. Maintain hemoglobin above 8.0 due to complex cardiovascular issues. Patient considered high perioperative cardiovascular risk for any procedures and anesthesia. Consider transfer to tertiary care center to facilitate evaluation for TAVR and perform noncardiac studies as necessary. History of Present Illness Reason for Consultation: Preoperative cardiovascular evaluation Requesting Physician: Stefani OTT Attending Physician: Karol Woody MD History of Present Illness 66-year-old patient with complex history noted below presented emergency depar tment with dizziness, and difficulty with balance. No falls or injuries reported. [id number] present at bedside. Patient carries a history of severe aortic valve stenosis awaiting TAVR. Hemoglobin noted to be 8.5 g/dL on admission he was transfused 1 unit of packed red blood cells. Denies any black stools, tarry stools, melena, hematochezia, hematemesis, or coffee-ground emesis. No orthopnea, PND, or lower extremity edema. Recent cardiac catheterization performed in preparation for TAVR with results listed below. Functional capacity is markedly limited due to dizziness, dyspnea on exertion, and deconditioning. Currently being treated for hypoglycemia acutely in the ER. Denies palpitations, syncope, or near syncope. Cardiac problem list: Cardiac Problems (copied from [facility] medical record): 1. Nonischemic cardiomyopathy with moderately severe LV dysfunction, LVEF 30-34% 2. Chronic combined systolic and diastolic CHF,NYHA class 3-4 3. Hypertensive heart disease with recent hypertensive crisis requiring hospitalization 04/2020 4. Calcific aortic valve disease with severe aortic stenosis,Ao V2 max:353.0 cm/secAo mean P.9 mmHgAVA(I,D): 0.57 cm2 5. Moderate CADwithout obstruction by last cardiac catheterization 06/2016 1. Repeat catheterization pre TAVR 09/02/2021, mild nonobstructive CAD, mid LAD 40%, mid circumflex 30%, luminal irregularities in dominant RCA 6. Chronic left bundle-branch block 7. History of Bi V ICD [id number]/2018, Medtronic [id number] a.Reduced biventricular pacing due to persistent atrial lhoktqbfikzz35.4% per interrogation 02/12/2021 8. CKD stage 4, GFR<20 [id number] with Nephrology 9. Chronic anemia 10. Paroxysmal,now persistent atrial fibrillation,[id number] score of7, onrenally dosed Eliquis,2.5 twice daily 11. Severe longstanding hypertension, status post left adrenalectomy in 1999 12. Severe central and obstructive sleep apnea, BiPAP dependent 13. Diabetes type 2, on insulin 14. Dyslipidemia 15. Atherosclerotic peripheral vascular disease with nonhealing wound,questionable diagnosis of Calciphylaxis,seeing wound clinic,current nonhealing ulcer, now looking into intervention by Dr. Weiss at [facility] as of 01/2021 16. Embolic CVA, 12/2019 17. Cholelithiasis 18. ARPIT, onBiPAP with O2 Allergies Allergy/AdvReac Type Severity Reaction Status Date / Time prednisone AdvReac Severe BSG'S OVER Verified 10/11/21 10:57 400-CONFUSION, DISORIENTED Home Medications Medication Instructions Recorded Confirmed Type aspirin 81 mg tablet,delayed 81 mg PO QAM 02/05/18 12/01/21 History release pantoprazole 40 mg tablet,delayed 40 mg PO QAM 02/05/18 12/01/21 History release (Protonix) albuterol sulfate 90 mcg/actuation 2 puff inhalation Q4H PRN 08/01/18 12/01/21 History aerosol inhaler (ProAir HFA) Shortness Of Breath Or Wheezing fluticasone propionate 50 2 spray intranasal DAILY PRN Nasal 08/01/18 12/01/21 History mcg/actuation nasal Congestion spray,suspension (Flonase Allergy Relief) ipratropium 0.5 mg-albuterol 3 mg 3 ml inhalation QID PRN Shortness 08/01/18 12/01/21 History (2.5 mg base)/3 mL nebulization Of Breath Or Wheezing soln fluticasone furoate 100 1 inh inhalation QAM 03/02/20 12/01/21 History mcg-vilanterol 25 mcg/dose inhalation powder (Breo Ellipta) metoprolol succinate 100 mg 100 mg PO BID #60 tabs 08/14/20 12/01/21 Rx tablet,extended release 24 hr (Toprol XL) atorvastatin 80 mg tablet 80 mg PO QPM 09/17/20 12/01/21 History insulin lispro 100 unit/mL 0 sliding scale dose subcut TIDM 01/17/21 12/01/21 History subcutaneous pen (Humalog KwikPen (U-100) Insulin) apixaban 2.5 mg tablet 2.5 mg PO BID 03/01/21 12/01/21 History torsemide 20 mg tablet See Rx Instructions .Route .COMPLEX 04/24/21 12/01/21 History potassium chloride 20 mEq 20 meq PO QPM 07/03/21 12/01/21 History tablet,extended release amiodarone 200 mg tablet 200 mg PO BIDM #60 tabs 07/12/21 12/01/21 Rx insulin glargine 100 unit/mL (3 30 unit subcut BID 10/23/21 12/01/21 History mL) subcutaneous pen (Lantus Solostar U-100 Insulin) Patient History Medical History Aortic stenosis Severe aortic stenosis vs pseudo aortic stenosis due to low output per cardio note from 12/2019 ECHO - Follows - Dr Star Delatorre Asthma has inhalers Atrial fibrillation Eliquis CAD (coronary artery disease) "nonobstructive" Calciphylaxis Current wound of right lower leg - being [facility] - almost healed per . Chronic anemia Chronic kidney disease Stage 4, under surveillance by Dr. Mcdermott (no dialysis at this time) Chronic systolic (congestive) heart failure COPD (chronic obstructive pulmonary disease) 2L at night Diabetic neuropathy DM type 2 (diabetes mellitus, type 2) IDDM Dyslipidemia Gall stones GERD (gastroesophageal reflux disease) History of COVID-19 Dx 08/05/20(hospitalized at [facility]) > symptoms at time of cough, SOB, generalized weakness, n/v/d, loss of taste/smell > "resolved" History of multiple pulmonary nodules Hypertension LBBB (left bundle branch block) Follows Dr. Star Delatorre Nonischemic cardiomyopathy S/p BIV AICD in place; follows with Dr. Graves Presence of combination internal cardiac defibrillator (ICD) and pacemaker Implanted 5+ years ago, Medtronic, last check ~08/2021 Pulmonary HTN PVD (peripheral vascular disease) Sleep apnea + nocturnal hypoxia > BIPAP + 2L O2 HS Stroke 11/2019 > residual speech difficulty/short term memory issues Surgical History H/O cardiac catheterization Non nonobstructive CAD on 2016 cardiac cath H/O total adrenalectomy Left (25 years ago) History of colonoscopy History of esophagogastroduodenoscopy (EGD) History of permanent cardiac pacemaker placement pacemaker/defib - Medronic - Follows Dr. Graves - Last check ~08/2021 S/P debridement (01/08/21) Left Lower Extremity Medial and Lateral excisional Debridement ( greater than 20 sq. 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 How many Children do You have: 1 Other Information That Helps Us Care for You: No Feels Safe at Home: Yes Safety Concerns: Feels Safe At This Time Assistive Devices: Hospital Bed Review of Systems Review of Systems: All systems reviewed & are unremarkable except as noted in Subjective Physical Exam Constitutional: well nourished and + ill appearing Respiratory: normal respiratory effort; no respiratory distress, no labored breathing and no retractions Auscultation: no crackles, no rales and no rhonchi Cardiovascular: Rate/Rhythm: + irregularly irregular Heart Sounds: normal S1 and + murmur (3/6 high-pitched late peaking systolic murmur); + abnormal S2 (absent) Vessels: no JVD and no carotid bruit Extremities: no edema Gastrointestinal (Abdomen): Inspection/Auscultation: abdomen normal to inspection and normal bowel sounds; abdomen not distended Percussion/Palpation: abdomen soft; abdomen nontender, no guarding and abdomen not rigid Neurologic: CN's II-XI intact bilaterally and moves all extremities; no focal motor deficits Results & Data ([facility]) Vital Signs (Past 12 Hours) Vital Signs Pulse Pulse Resp BP BP Pulse Ox O2 Del Method 12/02/21 11:00 71 16 99 12/02/21 11:00 119/94 12/02/21 09:00 67 22 97 12/02/21 09:00 144/106 H 12/02/21 08:00 70 23 96 12/02/21 08:00 137/87 12/02/21 07:00 82 24 92 12/02/21 07:00 131/88 12/02/21 06:00 70 23 98 12/02/21 06:00 143/89 H 12/02/21 05:00 70 21 98 12/02/21 05:00 153/94 H 12/02/21 04:16 70 24 76 L 12/02/21 04:16 140/82 12/02/21 07:56 69 27 H 98 12/02/21 05:34 75 25 H 100 12/02/21 04:14 70 18 140/82 98 Room Air O2 Flow Rate 12/02/21 11:00 12/02/21 11:00 12/02/21 09:00 12/02/21 09:00 12/02/21 08:00 12/02/21 08:00 12/02/21 07:00 12/02/21 07:00 12/02/21 06:00 12/02/21 06:00 12/02/21 05:00 12/02/21 05:00 12/02/21 04:16 12/02/21 04:16 12/02/21 07:56 2 12/02/21 05:34 2 12/02/21 04:14 Diagnostic Findings Dobutamine stress echo report 03/21/2021: Low dose dobutamine study to evaluate low flow, low gradient severe aortic stenosis. Resting aoritc systolic peak velocity: 368cm/s. Resting Mean gradient: 33.4 mm Hg. Velocity after 5 mcg/Kg/minute dobutamine: 438 cm/s. Mean gradient at 5 mcg/Kg/min 40 mm Hg. Findings confrim the diagnosis of low flow, low gradient severe aortic stenosis. Resting study: The qualitative LV ejection fraction is 30-34% (moderately reduced). There is diffuse hypokinesis. Aortic valve imaging suggest severe aortic stenosis not confirmed by Doppler examination. The Doppler exam may have underestimated the degree of stenosis. Mild aortic valve regurgitation is present. Mild mitral regurgitation is present. Mild tricuspid regurgitation is present. The proximal ascending thoracic aorta is mildly enlarged. Cardiac catheterization report summary 09/02/2021: Mild nonobstructive coronary disease, mid LAD 40%, mid circumflex 30%, luminal irregularities of a dominant right coronary artery.
[2021-12-02 13:00] LABS: Hematocrit (blood only) 29.1 % (40.1-51.0); Hemoglobin 8.6 g/dl (14.0-18.0)
[2021-12-02] MEDS ORDERED: SODIUM CHLORIDE 0.9% 250 ML IV PRN (13:18)
--- NOTE | 2021-12-02 15:15 | Hospitalist Progress Note ---
Date of Service December 02, 2021 Assessment & Plan (1) Severe aortic stenosis: (2) Preop cardiovascular exam: (3) Symptomatic anemia: Plan 66-year-old man with PMH of chronic combined systolic and diastolic CHF, nonischemic CM with moderately severe LV dysfunction, severe [0.57 cm], chronic LBBB, persistent A. fib on Eliquis, CKD stage IV [baseline creatinine of 3], biventricular ICD placement 2017, [place], PVD, embolic CVA, COPD, ARPIT on CPAP, pulmonary hypertension, DM 2 insulin requiring, choledocholithiasis/gallstone pancreatitis, chronic anemia with baseline hemoglobin of 10-11 presented to ED 12/01 with complaint of worsening dizziness described as lightheadedness/spinni ng/being off balance on getting up and shortness of breath on exertion. Patient denies any chest pain or abdominal pain or headache or black/bloody stool at presentation. Is being managed for the following: Symptomatic anemia Acute on chronic anemia likely secondary to upper GI bleed Severe aortic stenosis Patient presents with dizziness for few days prior to presentation [see above]. FOBT in the ED was positive. Patient hemoglobin was 11.2 on 08/26/2021 and dropped to 8.3 at admission on 12/01/2021. Patient is status post 1 unit PRBC 12/01 with improvement in his symptoms, hemoglobin went up to 9.4, again dropping to 8.6. Transfuse 1 more unit, repeat H&H at 10 PM, maintain hemoglobin > 9 GI evaluated, PPI twice daily, clear diet, recommends scope. NPO midnight. Cardiology evaluated, considers high perioperative cardiovascular risk for any procedure and anesthesia and recommends transfer to tertiary center to facilitate evaluation of TAVR and perform noncardiac studies. Discussed with cardiology, then with family for transfer process, patient agrees, initiated transfer process with [facility], accepting physician Dr. Billy Doshi. Recommendation to continue holding Eliquis until evaluation at [facility]. Continue to hold antiplatelet and NOAC. N.p.o. 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 ARF on CKD stage IV Admitting BUN 78 and creatinine 4.32 Baseline BUN in 40s to 50, and creatinine low 3s Patient getting gentle IV hydration, creatinine trending down, BUN elevation could be complicated by suspected upper GI bleed Holding home diuretics until creatinine back to baseline. BMP in AM. c/w gentle iv hydration. History of choledocholithiasis: ERCP recommended after patient undergoes TAVR as per outpatient GI notes. Other chronic medical conditions: HTN stable, chronic combined heart failure due to nonischemic CM/patient on dry side, DM2 on insulin/A1c 7.22 Aug 2021, past tobacco abuse Continue with/resume home meds as and when appropriate. DVT prophylaxis: SCDs while Eliquis on hold Full code Patient's Lina Whitaker [[phone]] Disposition: Discussed with patient and his POA and LORRIE Salazar for transfer process to tertiary center [facility], they are agreeable. Initiated the transfer process. Accepting physician Dr. Billy Doshi. Admission and Anticipated Discharge Date Admission Date: December 01, 2021 Subjective Pt seen and examined at bedside as a follow up of acute on chronic anemia and severe supposed to get TAVR. Patient was lying in bed, on 2 L nasal cannula oxygen, denies acute new events overnight, reports improvement in his dizziness/lightheadedness/shortness of breath after blood transfusion yesterday evening. Patient denies headache/fever/sore throat/cough/belly pain/acute changes in bowel or bladder habit. FOBT was done in the ED and was positive. Patient hemoglobin was 11.2 on 08/26/2021 and dropped to 8.3 at admission on 12/01/2021. Physical Exam Physical Exam: GENERAL: Alert and oriented x3. NAD, on RA. HEENT: No pallor, no icterus. Pupils equal, round and reactive to light. Oral mucosa moist. NECK: No JVD, no neck masses. HEART: S1 and S2 heard. Regular rate and rhythm. No murmur, no gallop. RESPIRATORY SYSTEM: Normal AP diameter. No accessory muscle use. No wheezing, no crackles. ABDOMEN: Soft, bowel sounds present, nontender, no distention. CENTRAL NERVOUS SYSTEM: No facial droop. Speech is clear. Obeys simple commands. Moves extremities. EXTREMITIES: No edema, no erythema seen. Results & Data Results & Data ([facility]) Vital Signs (Past 12 Hours) Vital Signs Temp Pulse Pulse Resp BP BP Pulse Ox 12/02/21 14:57 36.6 C 71 20 158/95 H 97 12/02/21 11:00 71 16 99 12/02/21 11:00 119/94 12/02/21 09:00 67 22 97 12/02/21 09:00 144/106 H 12/02/21 08:00 70 23 96 12/02/21 08:00 137/87 12/02/21 07:00 82 24 92 12/02/21 07:00 131/88 12/02/21 06:00 70 23 98 12/02/21 06:00 143/89 H 12/02/21 05:00 70 21 98 12/02/21 05:00 153/94 H 12/02/21 04:16 70 24 76 L 12/02/21 04:16 140/82 12/02/21 07:56 69 27 H 98 12/02/21 05:34 75 25 H 100 12/02/21 04:14 70 18 140/82 98 O2 Del Method O2 Flow Rate 12/02/21 14:57 12/02/21 11:00 12/02/21 11:00 12/02/21 09:00 12/02/21 09:00 12/02/21 08:00 12/02/21 08:00 12/02/21 07:00 12/02/21 07:00 12/02/21 06:00 12/02/21 06:00 12/02/21 05:00 12/02/21 05:00 12/02/21 04:16 12/02/21 04:16 12/02/21 07:56 2 12/02/21 05:34 2 12/02/21 04:14 Room Air
[2021-12-02] MEDS ORDERED: SODIUM CHLORIDE 0.9% 1000ML 1,000 ML IV SCH (19:25)
--- NOTE | 2021-12-02 19:59 | Discharge Summary ---
Date of Service December 02, 2021 Admission HPI Per Admitting Provider History obtained from patient, , and records. Medical history significant for chronic systolic heart failure secondary to nonischemic cardiomyopathy (EF of 40-45%, TTE 2021) status post ICD, chronic LBBB, hx nonocclusive CAD, hx VT, PVD as per records, hx embolic CVA, A. fib on on Eliquis, valvular heart disease (severe aortic stenosis, mild MR on recent TTE), HTN, COPD as per records, ARPIT on CPAP, pulmonary hypertension as per records, DM 2 insulin requiring, CRI (baseline creatinine of 3s), history of choledocholithiasis/gallstone pancreatitis, chronic anemia (baseline hemoglobin of 10-11), chronic thrombocytopenia. Last confinement July 2021 for shortness of breath and dizziness attributed to aortic stenosis. TAVR recommended over surgical AVR as per outpatient notes. Patient awaiting specialist appointment. Abnormal outpatient labs noted from November 22. (Hemoglobin of 8.5, serum creatinine 4.3.) Last few days, patient noted worsening dizziness described as lightheadedness/spinning/being off balance on getting up and shortness of breath on exertion. No chest pain, no SOB, no abdominal pain, no headache. No black/bloody stools noted at home. Patient brought by to ER for evaluation. FOBT at the ER was positive. IV PPI administered for GI bleed. 1 unit PRBC transfused at the ER. 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 Principal Diagnosis symptomatic anemia, GI Bleed, critical Discharge Data Allergies Allergy/AdvReac Type Severity Reaction Status Date / Time prednisone AdvReac Severe BSG'S OVER Verified 10/11/21 10:57 400-CONFUSION, DISORIENTED Consultations 12/01/21 22:10 Consult Gastroenterology Routine 12/02/21 08:51 Consult Cardiology Routine 12/02/21 19:28 Burn CD for patient Stat Procedures Performed Operation Date: 12/03/21 16:00 <No data on this case meets the specified criteria> Ordered Studies 12/01/21 17:33 CT head/brain wo con Stat 12/02/21 08:51 US abdomen limited Routine Hospital Course (1) Severe aortic stenosis: (2) Preop cardiovascular exam: (3) Symptomatic anemia: Plan 66-year-old man with PMH of chronic combined systolic and diastolic CHF, nonischemic CM with moderately severe LV dysfunction, severe [0.57 cm], chronic LBBB, persistent A. fib on Eliquis, CKD stage IV [baseline creatinine of 3], biventricular ICD placement 2017, VT, PVD, embolic CVA, COPD, ARPIT on CPAP, pulmonary hypertension, DM 2 insulin requiring, choledocholithiasis/gallstone pancreatitis, chronic anemia with baseline hemoglobin of 10-11 presented to ED 12/01 with complaint of worsening dizziness described as lightheadedness/spinning/being off balance on getting up and shortness of breath on exertion. Patient denies any chest pain or abdominal pain or headache or black/bloody stool at presentation. Is being managed for the following: Symptomatic anemia Acute on chronic anemia likely secondary to upper GI bleed Severe aortic stenosis Patient presents with dizziness for few days prior to presentation [see above]. FOBT in the ED was positive. Patient hemoglobin was 11.2 on 08/26/2021 and dropped to 8.3 at admission on 12/01/2021. Patient is status post 1 unit PRBC 12/01 with improvement in his symptoms, hemoglobin went up to 9.4, again dropping to 8.6. Transfuse 1 more unit, repeat H&H at 10 PM, maintain hemoglobin > 9 GI evaluated, PPI twice daily, clear diet, recommends scope. NPO midnight. Cardiology evaluated, considers high perioperative cardiovascular risk for any procedure and anesthesia and recommends transfer to tertiary center to facilitate evaluation of TAVR and perform noncardiac studies. Discussed with cardiology, then with family for transfer process, patient agrees, initiated transfer process with [facility] [place], accepting physician Dr. Billy Doshi. Recommendation to continue holding Eliquis until evaluation at [facility]. Continue to hold antiplatelet and NOAC. N.p.o. midnight if patient gets transferred nursing attendant tomorrow, for likely procedure tomorrow. ARF on CKD stage IV Admitting BUN 78 and creatinine 4.32 Baseline BUN in 40s to 50, and creatinine low 3s Patient getting gentle IV hydration, creatinine trending down, BUN elevation could be complicated by suspected upper GI bleed Holding home diuretics until creatinine back to baseline. BMP in AM. c/w gentle iv hydration. History of choledocholithiasis: ERCP recommended after patient undergoes TAVR as per outpatient GI notes. Other chronic medical conditions: HTN stable, chronic combined heart failure due to nonischemic CM/patient on dry side, DM2 on insulin/A1c 7.22 Aug 2021, past tobacco abuse Continue with/resume home meds as and when appropriate. DVT prophylaxis: SCDs while Eliquis on hold Full code Patient's Lina Whitaker [[phone]] Disposition: Discussed with patient and his POA and LORRIE Salazar for transfer process to [facility], they are agreeable. Initiated the transfer process. Accepting physician Dr. Billy Doshi. (Preceding documentation as per AM provider) Total Time Total Time Spent Total Time Spent (In Minutes): less than 10 mins Discharge Plan Discharge Items Patient Disposition: Transfer Acute Care Hospital Reason For Visit: SYMPTOMATIC ANEMIA Discharge Diagnosis: Acute on chronic anemia likely secondary to upper GI bleed Severe aortic stenosis High perioperative cardiac risks for any GI procedures. Activity: As commented below Activity Comment: As per tertiary [facility]. Non-emergency contact: Primary Care Provider Call non-emergency contact if: you have any medication questions Follow-up/Referrals: Mirlande Henning MD [Primary Care Provider] - Diet: Heart Healthy Addtl Attending Provider Instructions: Home medications are resumed as it was prior in discharge med rec. Current inpatient medications are copied/pasted here for the sake of comparison. Current Inpatient Medications Acetaminophen (Acetaminophen 325 Mg Tab) 650 mg PO Q4H PRN PRN Reason: Pain or Fever Stop: 12/31/21 22:09 Amiodarone HCl (Amiodarone 200 Mg Tab) 200 mg PO BIDM ALYSIA Stop: 01/01/22 07:59 Last Admin: 12/02/21 08:37 Dose: 200 mg Atorvastatin Calcium (Atorvastatin 40 Mg Tab) 80 mg PO QPM ALYSIA Stop: 01/01/22 20:59 Dextrose (Dextrose 50% 50 Ml Syringe) 25 - 50 ml IV UD PRN; Protocol PRN Reason: Hypoglycemia Protocol Stop: 12/31/21 22:09 Last Admin: 12/02/21 13:36 Dose: 25 ml Fluticasone Propionate (Fluticasone Propionate Na Spr 16 Gm Btl) 2 sprays NA DAILY PRN PRN Reason: Nasal Congestion Stop: 12/31/21 22:18 Fluticasone/Vilanterol (Fluticasone/Vilanterol 100/25mcg 14 Puffs/Inhaler) 1 puffs INH QAM [facility] Stop: 01/01/22 08:59 Last Admin: 12/02/21 00:09 Dose: 1 puffs Glucagon (Glucagon For Inj 1 Mg Vial) 1 mg SQ UD PRN; Protocol PRN Reason: Hypoglycemia Protocol Stop: 12/31/21 22:09 Glucose (Glucose 40% Gel 15 Gm Tube) 15 - 30 gm PO UD PRN; Protocol PRN Reason: Hypoglycemia Protocol Stop: 12/31/21 22:09 Glucose (Glucose 10 Tab/Tube) 4 - 8 tab PO UD PRN; Protocol PRN Reason: Hypoglycemia Treatment Stop: 12/31/21 22:09 Sodium Chloride (Nss 1000ml) 1,000 mls @ 40 mls/hr IV .Q24H ONE Stop: 12/02/21 19:20 Last Admin: 12/01/21 20:49 Dose: 40 mls/hr Promethazine HCl 12.5 mg/ (Sodium Chloride) 50.5 mls @ 202 mls/hr IV Q6H PRN PRN Reason: Nausea And Vomiting Stop: 12/31/21 22:09 Sodium Chloride (Nss) 250 mls @ 15 mls/hr IV .[id number] PRN PRN Reason: For Transfusion Stop: 12/02/21 23:18 Sodium Chloride (Nss 1000ml) 1,000 mls @ 40 mls/hr IV .Q24H [facility] Stop: 12/04/21 19:24 Insulin Aspart (Insulin Aspart Per Unit) 0 units SC ACHS [facility] Stop: 12/31/21 22:09 Last Admin: 12/02/21 18:52 Dose: Not Given Insulin Glargine (Lantus Per Unit Charge) 10 units SQ BID [facility] Stop: 01/01/22 20:59 Metoprolol Succinate (Metoprolol Succ 25mg Ext Rel Tab) 25 mg PO BID [facility] Stop: 12/31/21 22:29 Last Admin: 12/02/21 08:38 Dose: 25 mg Miscellaneous (Carbohydrates For Hypoglycemia ) 15 - 30 gm PO UD PRN PRN Reason: Hypoglycemia Protocol Stop: 12/31/21 22:09 Pantoprazole Sodium (Pantoprazole 40 Mg Tab) 40 mg PO BID [facility] Stop: 01/01/22 20:59 Tramadol HCl (Tramadol Hcl 50 Mg Tablet) 25 - 50 mg PO Q4H PRN PRN Reason: Pain Stop: 12/31/21 22:09 Pending Studies at Discharge: No Stand-Alone Forms: My [facility] Skilled Items Patient informed of condition?: Yes DNR: No Discharge Level of Care: Other Communicable Disease: No Discharge Prognosis: Other Lines: Peripheral IV Urinary Catheter: No Medications and DC Order Prescriptions: Continued apixaban 2.5 mg tablet 2.5 mg PO BID aspirin 81 mg Tablet,Delayed Release (Dr/Ec) 81 mg PO QAM pantoprazole [Protonix] 40 mg Tablet,Delayed Release (Dr/Ec) 40 mg PO QAM fluticasone furoate-vilanterol [Breo Ellipta] 100-25 mcg/dose Blister With Device 1 inh INHALATION QAM ipratropium-albuterol 0.5 mg-3 mg(2.5 mg base)/3 mL Solution For Nebulization 3 ml INHALATION QID PRN (Reason: Shortness Of Breath Or Wheezing) albuterol sulfate [ProAir HFA] 90 mcg/actuation Hfa Aerosol Inhaler 2 puff INHALATION Q4H PRN (Reason: Shortness Of Breath Or Wheezing) fluticasone propionate [Flonase Allergy Relief] 50 mcg/actuation [place],Suspension 2 spray INTRANASAL DAILY PRN (Reason: Nasal Congestion) insulin lispro [Humalog KwikPen Insulin] 100 unit/mL insulin pen 0 sliding scale dose subcut TIDM Rx Instructions: 7 units with breakfast, 27 units with lunch and dinner, 8 units with bedtime snack plus CF 1:25 over 150mg/dl atorvastatin 80 mg tablet 80 mg PO QPM torsemide 20 mg tablet See Rx Instructions .ROUTE .COMPLEX Rx Instructions: 20 mg orally ;TAKES 40 MG QAM, THEN 20 MG [id number]. potassium chloride 20 mEq tablet extended release 20 meq PO QPM metoprolol succinate [Toprol XL] 100 mg Tablet Extended Release 24 Hr 100 mg PO BID Qty: 60 1RF amiodarone 200 mg Tablet 200 mg PO BIDM Qty: 60 0RF insulin glargine [Lantus Solostar U-100 Insulin] 100 unit/mL (3 mL) insulin pen 30 unit SUBCUT BID Discharge Orders: Discharge Order (Routine); Ordered 12/02/21 Ordered By: Claudio Vazquez Admission Data Admit Date/Time: 12/01/21 20:18 Attending Provider: Karol Woody Admit Provider: Claudio Vazquez Primary Care Provider: Mirlande Henning Other Providers: Jessie Gastelum ; Leandra Bailon ; Wilbert Ayala ; Nancy Munoz ; Chris Mackey ; Nely Kent ; Apryl Stewart ; Gildardo Portillo ; Stefani Rutherford ; Mallory Mohan ; Ute Terry ; Waleska Gandara ; Jannet Rossi ; Gerald Mittal ; Parish Sethi ; Pillo Graves ; Nirav Wild ; Christian Zurita ; Billy Chery ; Isabel Bergman ; Roxann Pulido ; Lillie Harmon ; Kaveh Dunn
[2021-12-02] MEDS ORDERED: ATORVASTATIN 40 MG TAB PO SCH (21:00)
[2021-12-02 22:55] LABS: Hematocrit (blood only) 34.2 % (40.1-51.0); Hemoglobin 10.9 g/dl (14.0-18.0)
== END 2021-12-02 22:55 | disposition short-term general hospital (02) | DRG 378 ==
LOC: ED 17:00 → EDINP 20:18 → SUATTDRO 20:18 → EDINP 12-02 22:10

== ENCOUNTER 2022-09-16 16:04 | Inpatient (IN) ==
[2022-09-16] MEDS ORDERED: MoRPHine SULFATE 4 MG/ML 1 ML CARP\\VIAL IV STA (16:10)
[2022-09-16] MEDS ORDERED: ONDANSETRON INJ 2 MG/ML 2 ML VIAL IV STA (16:10)
--- NOTE | 2022-09-16 16:44 | XRay Report ---
XR chest 1V portable HISTORY: Chest pain, nonspecific COMPARISON: Chest 12/01/2021. FINDINGS: No pneumothorax. No pleural effusions. The cardiac silhouette remains enlarged. There is an aortic valve prosthesis and a left-sided pacemaker/defibrillator. No evidence for pulmonary edema. N o new focal lung consolidations to suggest a pneumonia. No acute fractures identified. IMPRESSION: Stable cardiomegaly. Otherwise, no acute process within the chest. ACT 112: Negative or not required by law. Electronically signed by: Tremaine Blackmon M.D. 09/16/2022 4:43 PM
[2022-09-16 17:01] LABS: Alanine Aminotransferase 25 U/L (7-52); Albumin Globulin Ratio 1.2 (0.9-2); Albumin Level 3.9 gm/dl (3.4-5.0); Alkaline Phosphatase 128 U/L (34-104); Anion Gap 8 (3-11); BUN Creatinine Ratio 15.9 (10-20); Bilirubin,Total 0.7 mg/dl (0.2-1.0); Blood Urea Nitrogen 62 mg/dl (6-23); Calcium 9.1 mg/dl (8.6-10.3); Carbon Dioxide 28 mmol/L (21-32); Chloride 104 mmol/L (98-107); Creatinine Clr Calc Pharmacy 21.8 ml/min; Est GFR (African American) 17.2 ml/min; Est GFR (Non-African American) 14.9 ml/min; Globulin 3.3 gm/dl (2.5-4.0); Glucose 174 mg/dl (70-99(Fasting)); Lipase 10 U/L (11-82); Magnesium 2.3 mg/dl (1.7-2.4); Sodium 140 mmol/L (136-145); Total Protein 7.2 gm/dl (6.0-8.3)
[2022-09-16 17:07] LABS: Troponin I High Sensitivity 39.7 pg/ml (0-20)
[2022-09-16 17:13] LABS: Basophils # (auto) 0.01 K/uL (0-0.2); Basophils % (auto) 0.5 %; Eosinophils # (auto) 0.01 K/uL (0-0.50); Eosinophils % (auto) 0.5 %; Hematocrit (blood only) 40.7 % (42.0-52.0); Hemoglobin 13.3 g/dl (14.0-18.0); Immature Granulocytes # (auto) 0.07 K/uL (0.01-0.20); Immature Granulocytes % (auto) 3.8 %; Lymphocytes # (auto) 0.36 K/uL (1.2-3.4); Lymphocytes % (auto) 19.7 %; Mean Corpuscular Hemoglobin 28.7 pg (25.0-34.0); Mean Corpuscular Hgb Conc 32.7 g/dL (32.0-36.0); Mean Corpuscular Volume 87.7 fL (80.0-100.0); Mean Platelet Volume 11.1 fL (9.4-12.4); Monocytes # (auto) 0.04 K/uL (0.11-0.59); Monocytes % (auto) 2.2 %; Neutrophils # (auto) 1.34 K/uL (1.40-6.50); Neutrophils % (auto) 73.3 %; Platelet Count 84 K/uL (130-400); RDW Coefficient of Variation 15.3 % (11.5-14.5); RDW Standard Deviation 49.2 fL (36.4-46.3); Red Blood Count 4.64 M/uL (4.70-6.10); White Blood Count 1.83 K/ul (4.8-10.8)
[2022-09-16 17:15] LABS: INR 1.1 (0.9-1.1); Partial Thromboplastin Ratio 0.9; Partial Thromboplastin Time 26.2 Seconds (21.0-31.0); Prothrombin Time 11.9 Seconds (9.0-12.0)
--- NOTE | 2022-09-16 17:49 | Ultrasound Report ---
ULTRASOUND RIGHT UPPER QUADRANT ABDOMEN CLINICAL HISTORY: Right upper quadrant abdominal pain. COMPARISON STUDY: Abdominal CT dated 09/17/2020. TECHNIQUE: Real-time, grayscale, and color flow sonography of the right upper quadrant of the abdomen was performed. Images are reviewed in the transverse and longitudinal planes. FINDINGS: Liver: The liver is normal in size and echotexture. There is no intrahepatic biliary ductal dilatatio n. The main portal vein is patent. Gallbladder: The gallbladder is distended and contains shadowing gallstones. The gallbladder wall is top normal in thickness measuring up to 3 mm. There is trace pericholecystic fluid. A sonographic Mur phy's sign is reportedly present. The common bile duct measures up to 1.0 cm in diameter. Pancreas: Visualized portions of the pancreatic head and body are normal in appearance. The splenic v ein is patent. Right kidney: Survey images of the right kidney demonstrate cortical atrophy. Increased echotexture s uggests medical renal disease. There is no hydronephrosis. Ascites: None. IMPRESSION: 1. Cholelithiasis within a distended and abnormal appearing gallbladder. Acute cholecystitis is not e xcluded. Surgical consultation is advised. A nuclear hepatobiliary scan could be considered for confi rmation. 2. No intrahepatic biliary ductal dilatation is seen. The common bile duct is dilated measuring 1.0 c m. ACT 112: Negative or not required by law. Electronically signed by: Guerrero Hebert M.D. 09/16/2022 5:46 PM
[2022-09-16 18:09] LABS: Appearance Urine Clear (Clear); Bacteria Urine Automated Negative (Negative); Bilirubin Urine Negative (Negative); Blood Urine Negative (Negative); Color Urine Yellow; Glucose Urine UA 1+ (Negative); Ketones Urine Negative (Negative); Leukocyte Esterase Urine Negative (Negative); Nitrite Urine Negative (Negative); Protein Urine 2+ (Negative); RBC Urine Automated 0-4 /hpf (0-4); Specific Gravity Urine 1.012 (1.000-1.030); Urobilinogen Urine Negative (Negative); pH Urine 5.5 (4.5-7.5)
[2022-09-16] MEDS ORDERED: cefOXitin 2,000 MG/60 ML BAG IV STA (18:16)
[2022-09-16 18:20] LABS: Potassium 3.8 mmol/L (3.5-5.1)
[2022-09-16 18:52] LABS: Lyme Ab IgG w/WB Rflx Negative (Negative); Lyme Ab IgM w/WB Rflx Negative (Negative)
[2022-09-16] MEDS ORDERED: ONDANSETRON INJ 2 MG/ML 2 ML VIAL ONE (19:19)
[2022-09-16] MEDS ORDERED: MoRPHine SULFATE 4 MG/ML 1 ML CARP\\VIAL ONE (19:19)
[2022-09-16 19:26] LABS: Adenovirus PCR Not Detected (NotDetected); Bordetella parapertussis PCR Not Detected (NotDetected); Bordetella pertussis PCR Not Detected (NotDetected); Chlamydia pneumoniae PCR Not Detected (NotDetected); Coronavirus 229E PCR Not Detected (NotDetected); Coronavirus CoV-2 (COVID19)PCR Not Detected (NotDetected); Coronavirus HKU1 PCR Not Detected (NotDetected); Coronavirus NL63 PCR Not Detected (NotDetected); Coronavirus OC43PCR Not Detected (NotDetected); Human Metapneumovirus PCR Not Detected (NotDetected); Influenza A PCR Not Detected (NotDetected); Influenza B PCR Not Detected (NotDetected); Mycoplasma pneumoniae PCR Not Detected (NotDetected); Parainfluenza Virus 1 PCR Not Detected (NotDetected); Parainfluenza Virus 2 PCR Not Detected (NotDetected); Parainfluenza Virus 3 PCR Not Detected (NotDetected); Parainfluenza Virus 4 PCR Not Detected (NotDetected); Respiratory Syncytial VirusPCR Not Detected (NotDetected); Rhinovirus/Enterovirus PCR Not Detected (NotDetected)
[2022-09-16] MEDS ORDERED: METOPROLOL SUCC 50MG EXT REL TAB PO STA ×2 (19:32→19:43)
[2022-09-16] MEDS ORDERED: lisinopril 20 MG TAB PO STA (19:43)
--- NOTE | 2022-09-16 20:22 | History & Physical Report ---
Date of Service September 16, 2022 Assessment & Plan (1) Hypertensive crisis: Plan: Secondary to possible calculous cholecystitis No sepsis for now Troponin elevation secondary to above in the setting of kidney dysfunction chronic systolic heart failure secondary to nonischemic cardiomyopathy status post ICD, patient euvolemic status post bioprosthetic AVR chronic LBBB hx VT hx nonocclusive CAD, PVD as per records hx embolic CVA A. fib on on Eliquis COPD as per records/ARPIT on CPAP/pulmonary hypertension, baseline lung status DM 2 insulin requiring, reasonable control with hemoglobin A1c of 7.1 last June 2022 CRI, at baseline chronic anemia, hemoglobin better than baseline chronic thrombocytopenia PCU Analgesia Facilitate home BP meds General surgery consult Re: Possible cholecystitis (Patient already seen by Dr. Burgos. Clear liquid diet and antibiotics recommended. Surgery not recommended at [facility] this time. Tertiary care center transfer recommended if surgical intervention warranted as per note.) Ertapenem for possible cholecystitis given patient propensity for fluid overload Hold Eliquis for now IV heparin while Eliquis on hold. Follow troponin, TTE if with progression Basal insulin adjusted for clear liquid diet, ISS BG goal 1 10-1 40, carb count coverage DVT prophylaxis. IV heparin while Eliquis on hold Full code Patient requesting update providers. Ms. Lina Delarosa, contact #[phone]. Text document was generated using [employer] voice recognition software. It may contain grammatical or spelling errors. Kindly contact undersigned for clarification of any documentation item in question. History of Present Illness Chief Complaint: Abdominal pain going to the chest Primary Care Provider: Mirlande Henning MD History obtained from patient, , and records. Medical history significant for chronic systolic heart failure secondary to nonischemic cardiomyopathy (EF of 35%, TTE 2021) status post ICD, status post bioprosthetic AVR, chronic LBBB, hx nonocclusive CAD, hx VT, PVD as per records, hx embolic CVA, A. fib on on Eliquis, HTN, COPD as per records, ARPIT on CPAP, pulmonary hypertension as per records, DM 2 insulin requiring, CRI (baseline creatinine of 3-4), history of choledocholithiasis/gallstone pancreatitis, chronic anemia (baseline hemoglobin of 10-11), chronic thrombocytopenia. Last confinement November 2021 for symptomatic anemia and GI bleed, critical . [place] [facility] [place]. Few days ago, patient noted upper abdominal discomfort going to the chest reminiscent of gallstone attacks. Some shortness of breath. Weight up by 2 pounds as per . No fever, no chills. Patient brought to the ER for evaluation. IV cefoxitin administered for possible cholecystitis. 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 Allergies Allergy/AdvReac Type Severity Reaction Status Date / Time prednisone AdvReac Severe BSG'S OVER Verified 09/16/22 16:54 400-CONFUSION, DISORIENTED Home Medications Medication Instructions Recorded Confirmed Type aspirin 81 mg tablet,delayed 81 mg PO QAM 02/05/18 09/16/22 History release pantoprazole 40 mg tablet,delayed 40 mg PO QAM 02/05/18 09/16/22 History release (Protonix) albuterol sulfate 90 mcg/actuation 2 puff inhalation Q4H PRN 08/01/18 09/16/22 History aerosol inhaler (ProAir HFA) Shortness Of Breath Or Wheezing ipratropium 0.5 mg-albuterol 3 mg 3 ml inhalation QID PRN Shortness 08/01/18 09/16/22 History (2.5 mg base)/3 mL nebulization Of Breath Or Wheezing soln metoprolol succinate 100 mg 100 mg PO BID #60 tabs 08/14/20 09/16/22 Rx tablet,extended release 24 hr (Toprol XL) atorvastatin 80 mg tablet 80 mg PO QPM 09/17/20 09/16/22 History insulin lispro 100 unit/mL 0 sliding scale dose subcut TIDM 01/17/21 09/16/22 History subcutaneous pen (Humalog KwikPen (U-100) Insulin) apixaban 2.5 mg tablet 2.5 mg PO BID 03/01/21 09/16/22 History torsemide 20 mg tablet See Rx Instructions .Route .COMPLEX 04/24/21 09/16/22 History potassium chloride 20 mEq 20 meq PO .ON HOLD 07/03/21 09/16/22 History tablet,extended release insulin glargine 100 unit/mL (3 32 unit subcut BID 10/23/21 09/16/22 History mL) subcutaneous pen (Lantus Solostar U-100 Insulin) allopurinol 100 mg tablet 100 mg PO QAM 09/16/22 09/16/22 History alprazolam 0.5 mg tablet 0.5 - 1 mg PO HS 09/16/22 09/16/22 History amiodarone 200 mg tablet 200 mg PO AMHS 09/16/22 09/16/22 History folic acid 1 mg tablet 1 mg PO QAM 09/16/22 09/16/22 History lisinopril 20 mg tablet 20 mg PO HS 09/16/22 09/16/22 History Past Med/Surg History Medical History (Updated 09/17/22 @ 03:43 by Claudio Vazquez MD) Aortic stenosis Severe aortic stenosis vs pseudo aortic stenosis due to low output per cardio note from 12/2019 ECHO - Follows - Dr Star Delatorre Asthma has inhalers Atrial fibrillation Eliquis CAD (coronary artery disease) "nonobstructive" Calciphylaxis Current wound of right lower leg - [facility] - almost healed per . Chronic anemia Chronic kidney disease Stage 4, under surveillance by Dr. Mcdermott (no dialysis at this time) Chronic systolic (congestive) heart failure COPD (chronic obstructive pulmonary disease) 2L at night Diabetic neuropathy DM type 2 (diabetes mellitus, type 2) IDDM Dyslipidemia Gall stones GERD (gastroesophageal reflux disease) History of COVID-19 Dx 08/05/20(hospitalized at [place]) > symptoms at time of cough, SOB, generalized weakness, n/v/d, loss of taste/smell > "resolved" History of multiple pulmonary nodules Hypertension Hypertensive crisis LBBB (left bundle branch block) Follows Dr. Star Delatorre Nonischemic cardiomyopathy S/p BIV AICD in place; follows with Dr. Graves PAF (paroxysmal atrial fibrillation) Presence of combination internal cardiac defibrillator (ICD) and pacemaker Implanted 5+ years ago, [employer], last check ~08/2021 Pulmonary HTN PVD (peripheral vascular disease) Sleep apnea + nocturnal hypoxia > BIPAP + 2L O2 HS Stroke 11/2019 > residual speech difficulty/short term memory issues Surgical History H/O cardiac catheterization Non nonobstructive CAD on 2017 cardiac cath H/O total adrenalectomy Left (25 years ago) History of colonoscopy History of esophagogastroduodenoscopy (EGD) History of permanent cardiac pacemaker placement pacemaker/defib - [employer] - Follows Dr. Graves - Last check ~08/2021 S/P debridement (01/08/21) Left Lower Extremity Medial and Lateral excisional Debridement ( greater than 20 sq. cm and Biopsy( both wounds)) - Ignacio Chisholm, 01/08/21 Family History Sister Diabetes Brother Diabetes Other Hypertension Lung cancer Social History Smoking Status: Never smoker Tobacco Type: Smokeless Tobacco (Dip or Chew) Second Hand Exposure: No; Do You Dip or Chew Tobacco: Yes; Tobacco Cessation Education Requested by Patient: No Hx Alcohol Use: No Hx Substance Use: No Preferred Language: Mohawk Communication Ability: Effective Visual Impairment: Limited Sheep Sorter Required: No Beliefs That Will Affect Care: None marital status: Current Living Situation: Spouse current occupational status: retired 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 How many Children do You have: 1 Other Information That Helps Us Care for You: No Feels Safe at Home: Yes Safety Concerns: Feels Safe At This Time Assistive Devices: CPAP and Glasses Review of Systems Review of Systems: As per HPI, all other systems reviewed and negative Physical Exam Physical Exam: GENERAL: obese, pleasant, no respiratory distress SKIN: Pallor, warm HEENT: Alopecia, pale palpebral conjunctivae, no ptosis, dry buccal mucosa NECK : Supple, short neck, no tenderness CHEST : Decreased breath sounds, no tenderness HEART : RRR, no obvious murmurs ABDOMEN: Some distention, epigastric tenderness EXTREMITIES : Minimal LE swelling, no LE tenderness, no other conspicuous deformities noted NEUROLOGIC : Coherent, no facial asymmetry, gait and stance not assessed Results & Data Results & Data Vital Signs (Past 12 Hours) Vital Signs Temp Pulse Resp BP Pulse Ox O2 Del Method 09/16/22 18:50 78 95 09/16/22 18:45 183/115 H 09/16/22 18:45 75 20 94 09/16/22 18:40 75 13 97 09/16/22 18:30 75 23 90 09/16/22 18:30 183/122 H 09/16/22 18:20 84 21 92 09/16/22 18:10 74 10 L 90 09/16/22 18:00 73 14 96 09/16/22 18:00 185/117 H 09/16/22 17:50 69 96 09/16/22 17:49 72 16 90 09/16/22 17:49 185/117 H 09/16/22 17:40 77 23 96 09/16/22 17:34 180/115 H 09/16/22 17:34 72 16 93 09/16/22 17:31 197/132 H 09/16/22 17:31 99 09/16/22 17:20 17 09/16/22 17:10 74 97 09/16/22 17:00 71 22 94 09/16/22 17:00 162/94 H 09/16/22 16:50 73 24 95 09/16/22 16:40 72 23 96 09/16/22 16:20 73 09/16/22 16:31 163/104 H 09/16/22 16:31 77 23 94 09/16/22 16:30 71 22 97 09/16/22 16:21 70 18 09/16/22 16:10 Room Air 09/16/22 15:52 36.6 C 78 16 137/78 95 Room Air Laboratory Results Laboratory Results WBC 1.83 K/ul (4.8-10.8) L 09/16/22 16:21 RBC 4.64 M/uL (4.70-6.10) L 09/16/22 16:21 Hgb 13.3 g/dl (14.0-18.0) L 09/16/22 16:21 Hct 40.7 % (42.0-52.0) L 09/16/22 16:21 MCV 87.7 fL (80.0-100.0) 09/16/22 16:21 MCH 28.7 pg (25.0-34.0) 09/16/22 16:21 MCHC 32.7 g/dL (32.0-36.0) 09/16/22 16:21 RDW Std Deviation 49.2 fL (36.4-46.3) H 09/16/22 16:21 RDW Coeff of Joey 15.3 % (11.5-14.5) H 09/16/22 16:21 Plt Count 84 K/uL (130-400) L 09/16/22 16:21 MPV 11.1 fL (9.4-12.4) 09/16/22 16:21 Immature Gran % (Auto) 3.8 % 09/16/22 16:21 Neut % (Auto) 73.3 % 09/16/22 16:21 Lymph % (Auto) 19.7 % 09/16/22 16:21 [place] % (Auto) 2.2 % 09/16/22 16:21 Eos % (Auto) 0.5 % 09/16/22 16:21 Baso % (Auto) 0.5 % 09/16/22 16:21 Neut # (Auto) 1.34 K/uL (1.40-6.50) L 09/16/22 16:21 Lymph # (Auto) 0.36 K/uL (1.2-3.4) L 09/16/22 16:21 [place] # (Auto) 0.04 K/uL (0.11-0.59) L 09/16/22 16:21 Eos # (Auto) 0.01 K/uL (0-0.50) 09/16/22 16:21 Baso # (Auto) 0.01 K/uL (0-0.2) 09/16/22 16:21 Immature Gran # (Auto) 0.07 K/uL (0.01-0.20) 09/16/22 16:21 PT 11.9 Seconds (9.0-12.0) 09/16/22 16:21 INR 1.1 (0.9-1.1) 09/16/22 16:21 APTT 26.2 Seconds (21.0-31.0) 09/16/22 16:21 PTT Ratio 0.9 09/16/22 16:21 Sodium 140 mmol/L (136-145) 09/16/22 16:21 Potassium 3.8 mmol/L (3.5-5.1) 09/16/22 17:31 Chloride 104 mmol/L (98-107) 09/16/22 16:21 Carbon Dioxide 28 mmol/L (21-32) 09/16/22 16:21 Anion Gap 8 (3-11) 09/16/22 16:21 BUN 62 mg/dl (6-23) H 09/16/22 16:21 Creatinine 3.90 mg/dl (0.6-1.4) H 09/16/22 16:21 Est Cr Clr Drug Dosing 21.8 ml/min 09/16/22 16:21 Est GFR ( Amer) 17.2 ml/min 09/16/22 16:21 Est GFR (Non-Af Amer) 14.9 ml/min 09/16/22 16:21 BUN/Creatinine Ratio 15.9 (10-20) 09/16/22 16:21 Glucose 174 mg/dl (70-99(Fasting)) H 09/16/22 16:21 Calcium 9.1 mg/dl (8.6-10.3) 09/16/22 16:21 Magnesium 2.3 mg/dl (1.7-2.4) 09/16/22 16:21 Total Bilirubin 0.7 mg/dl (0.2-1.0) 09/16/22 16:21 AST 19 U/L (13-39) 09/16/22 17:31 ALT 25 U/L (7-52) 09/16/22 16:21 Alkaline Phosphatase 128 U/L (34-104) H 09/16/22 16:21 Troponin I High Sens 39.7 pg/ml (0-20) H 09/16/22 16:21 Total Protein 7.2 gm/dl (6.0-8.3) 09/16/22 16:21 Albumin 3.9 gm/dl (3.4-5.0) 09/16/22 16:21 Globulin 3.3 gm/dl (2.5-4.0) 09/16/22 16:21 Albumin/Globulin Ratio 1.2 (0.9-2) 09/16/22 16:21 Lipase 10 U/L (11-82) L 09/16/22 16:21 Urine Color Yellow 09/16/22 16:25 Urine Appearance Clear (Clear) 09/16/22 16:25 Urine pH 5.5 (4.5-7.5) 09/16/22 16:25 Ur Specific [place] 1.012 (1.000-1.030) 09/16/22 16:25 Urine Protein 2+ (Negative) H 09/16/22 16:25 Urine Glucose (UA) 1+ (Negative) H 09/16/22 16:25 Urine Ketones Negative (Negative) 09/16/22 16:25 Urine Blood Negative (Negative) 09/16/22 16:25 Urine Nitrite Negative (Negative) 09/16/22 16:25 Urine Bilirubin Negative (Negative) 09/16/22 16:25 Urine Urobilinogen Negative (Negative) 09/16/22 16:25 Ur Leukocyte Esterase Negative (Negative) 09/16/22 16:25 Urine WBC (Auto) 1-5 /hpf (0-5) 09/16/22 16:25 Urine RBC (Auto) 0-4 /hpf (0-4) 09/16/22 16:25 U Hyaline Cast (Auto) 1-5 /lpf (0-5) 09/16/22 16:25 U Epithel Cells (Auto) 10-20 /lpf (0-5) H 09/16/22 16:25 Urine Bacteria (Auto) Negative (Negative) 09/16/22 16:25 Adenovirus (PCR) Not Detected (NotDetected) 09/16/22 18:00 Anaplasma Smear See Comment 09/16/22 17:31 Babesia Smear See Comment 09/16/22 17:31 B. pertussis DNA (PCR) Not Detected (NotDetected) 09/16/22 18:00 B.parapertussis DNA PCR Not Detected (NotDetected) 09/16/22 18:00 Lyme Disease IgG Ab Negative (Negative) 09/16/22 17:31 Lyme Disease IgM Ab Negative (Negative) 09/16/22 17:31 C. pneumoniae DNA (PCR) Not Detected (NotDetected) 09/16/22 18:00 Coronavirus OC43 (PCR) Not Detected (NotDetected) 09/16/22 18:00 Coronavirus HKU1 (PCR) Not Detected (NotDetected) 09/16/22 18:00 Coronavirus 229E (PCR) Not Detected (NotDetected) 09/16/22 18:00 SARS-CoV-2 (PCR) Not Detected (NotDetected) 09/16/22 18:00 Coronavirus NL63 (PCR) Not Detected (NotDetected) 09/16/22 18:00 Human Metapneumovir PCR Not Detected (NotDetected) 09/16/22 18:00 Influenza Type A (PCR) Not Detected (NotDetected) 09/16/22 18:00 Influenza Type B (PCR) Not Detected (NotDetected) 09/16/22 18:00 M. pneumoniae (PCR) Not Detected (NotDetected) 09/16/22 18:00 Parainfluenza 1 (PCR) Not Detected (NotDetected) 09/16/22 18:00 Parainfluenza 2 (PCR) Not Detected (NotDetected) 09/16/22 18:00 Parainfluenza 3 (PCR) Not Detected (NotDetected) 09/16/22 18:00 Parainfluenza 4 (PCR) Not Detected (NotDetected) 09/16/22 18:00 RSV (PCR) Not Detected (NotDetected) 09/16/22 18:00 Entero/Rhino (PCR) Not Detected (NotDetected) 09/16/22 18:00 SARS-CoV-2, RNA, NAAT NEGATIVE (NEGATIVE) 09/16/22 16:28 Impressions Chest X-Ray 09/16/22 16:10 XR chest 1V portable HISTORY: Chest pain, nonspecific COMPARISON: Chest 12/01/2021. FINDINGS: No pneumothorax. No pleural effusions. The cardiac silhouette remains enlarged. There is an aortic valve prosthesis and a left-sided pacemaker/defibrillator. No evidence for pulmonary edema. No new focal lung consolidations to suggest a pneumonia. No acute fractures identified. IMPRESSION: Stable cardiomegaly. Otherwise, no acute process within the chest. ACT 112: Negative or not required by law. Electronically signed by: Tremaine Blackmon M.D. 09/16/2022 4:43 PM Gallbladder Ultrasound 09/16/22 16:12 ULTRASOUND RIGHT UPPER QUADRANT ABDOMEN CLINICAL HISTORY: Right upper quadrant abdominal pain. COMPARISON STUDY: Abdominal CT dated 09/17/2020. TECHNIQUE: Real-time, grayscale, and color flow sonography of the right upper quadrant of the abdomen was performed. Images are reviewed in the transverse and longitudinal planes. FINDINGS: Liver: The liver is normal in size and echotexture. There is no intrahepatic biliary ductal dilatation. The main portal vein is patent. Gallbladder: The gallbladder is distended and contains shadowing gallstones. The gallbladder wall is top normal in thickness measuring up to 3 mm. There is trace pericholecystic fluid. A sonographic Baumann's sign is reportedly present. The common bile duct measures up to 1.0 cm in diameter. Pancreas: Visualized portions of the pancreatic head and body are normal in appearance. The splenic vein is patent. Right kidney: Survey images of the right kidney demonstrate cortical atrophy. Increased echotexture suggests medical renal disease. There is no hydronephrosis. Ascites: None. IMPRESSION: 1. Cholelithiasis within a distended and abnormal appearing gallbladder. Acute cholecystitis is not excluded. Surgical consultation is advised. A nuclear hepatobiliary scan could be considered for confirmation. 2. No intrahepatic biliary ductal dilatation is seen. The common bile duct is dilated measuring 1.0 cm. ACT 112: Negative or not required by law. Electronically signed by: Guerrero Hebert M.D. 09/16/2022 5:46 PM Diagnostic Findings EKG as per my interpretation : Rate 80, paced rhythm
[2022-09-16] MEDS ORDERED: PROMETHAZINE HCL 12.5 MG in SODIUM CHLORIDE 0.9% 50 ML IV PRN (20:30)
[2022-09-16] MEDS ORDERED: HYDROmorphone INJ 0.5 MG/0.5 ML SYR IV PRN (20:30)
[2022-09-16] MEDS ORDERED: oxyCODONE HCL IR 5 MG TAB (IMMEDIATE RELEASE) PO PRN (20:30)
--- NOTE | 2022-09-16 21:29 | Surgery Consultation ---
Date of Consultation September 16, 2022 Assessment & Plan (1) Presence of combination internal cardiac defibrillator (ICD) and pacemaker: (2) Cholelithiasis: (3) Hypertension: (4) Nonischemic cardiomyopathy: Plan 67-year-old gentleman with extensive past medical history including extensive cardiac history presents with what appears to be developing acute cholecystitis. He has been seen in [place] for potential cholecystectomy following his recovery from his cardiac surgery. I would not recommend surgical intervention at this time. We will place him on a clear liquid diet and IV antibiotics. We will observe him for now. If he requires any surgical intervention, he will most likely have to be transferred to tertiary care center due to his extensive cardiac history. We will continue to follow. History of Present Illness Requesting Physician: Claudio Tyler MD Attending Physician: Claudio Tyler MD History of Present Illness 67-year-old gentleman with a past Medical history significant for chronic systolic heart failure secondary to nonischemic cardiomyopathy (EF of 40-45%, TTE 2021) status post ICD, chronic LBBB, hx nonocclusive CAD, hx VT, PVD as per records, hx embolic CVA, A. fib on on Eliquis, valvular heart disease now status post TVAR, HTN, COPD as per records, ARPIT on CPAP, pulmonary hypertension as per records, DM 2 insulin requiring, CRI (baseline creatinine of 3s), chronic anemia (baseline hemoglobin of 10-11), chronic thrombocytopenia, who has known gallstones and gallbladder disease. He has been seen by general surgery in [place] for possible cholecystectomy. They have been waiting for his cardiac issues to stabilize following his TVAR procedure. He presents with a 1 day history of upper abdominal pain radiating across to his right and into his back. He did have some nausea. He denies fevers or chills. This was after eating burgers and beans on Thursday. Currently his pain is not significant but he has had pain medicine. He does currently take Eliquis. Allergies Allergy/AdvReac Type Severity Reaction Status Date / Time prednisone AdvReac Severe BSG'S OVER Verified 09/16/22 16:54 400-CONFUSION, DISORIENTED Home Medications Medication Instructions Recorded Confirmed Type aspirin 81 mg tablet,delayed 81 mg PO QAM 02/05/18 09/16/22 History release pantoprazole 40 mg tablet,delayed 40 mg PO QAM 02/05/18 09/16/22 History release (Protonix) albuterol sulfate 90 mcg/actuation 2 puff inhalation Q4H PRN 08/01/18 09/16/22 History aerosol inhaler (ProAir HFA) Shortness Of Breath Or Wheezing ipratropium 0.5 mg-albuterol 3 mg 3 ml inhalation QID PRN Shortness 08/01/18 09/16/22 History (2.5 mg base)/3 mL nebulization Of Breath Or Wheezing soln metoprolol succinate 100 mg 100 mg PO BID #60 tabs 08/14/20 09/16/22 Rx tablet,extended release 24 hr (Toprol XL) atorvastatin 80 mg tablet 80 mg PO QPM 09/17/20 09/16/22 History insulin lispro 100 unit/mL 0 sliding scale dose subcut TIDM 01/17/21 09/16/22 History subcutaneous pen (Humalog KwikPen (U-100) Insulin) apixaban 2.5 mg tablet 2.5 mg PO BID 03/01/21 09/16/22 History torsemide 20 mg tablet See Rx Instructions .Route .COMPLEX 04/24/21 09/16/22 History potassium chloride 20 mEq 20 meq PO .ON HOLD 07/03/21 09/16/22 History tablet,extended release insulin glargine 100 unit/mL (3 32 unit subcut BID 10/23/21 09/16/22 History mL) subcutaneous pen (Lantus Solostar U-100 Insulin) allopurinol 100 mg tablet 100 mg PO QAM 09/16/22 09/16/22 History alprazolam 0.5 mg tablet 0.5 - 1 mg PO HS 09/16/22 09/16/22 History amiodarone 200 mg tablet 200 mg PO AMHS 09/16/22 09/16/22 History folic acid 1 mg tablet 1 mg PO QAM 09/16/22 09/16/22 History lisinopril 20 mg tablet 20 mg PO HS 09/16/22 09/16/22 History Patient History Medical History Aortic stenosis Severe aortic stenosis vs pseudo aortic stenosis due to low output per cardio note from 12/2019 ECHO - Follows - Dr Star Delatorre Asthma has inhalers Atrial fibrillation Eliquis CAD (coronary artery disease) "nonobstructive" Calciphylaxis Current wound of right lower leg - being seen by [facility] - almost healed per . Chronic anemia Chronic kidney disease Stage 4, under surveillance by Dr. Mcdermott (no dialysis at this time) Chronic systolic (congestive) heart failure COPD (chronic obstructive pulmonary disease) 2L at night Diabetic neuropathy DM type 2 (diabetes mellitus, type 2) IDDM Dyslipidemia Gall stones GERD (gastroesophageal reflux disease) History of COVID-19 Dx 08/05/20(hospitalized at [facility]) > symptoms at time of cough, SOB, generalized weakness, n/v/d, loss of taste/smell > "resolved" History of multiple pulmonary nodules Hypertension Hypertensive crisis LBBB (left bundle branch block) Follows Dr. Star Delatorre Nonischemic cardiomyopathy S/p BIV AICD in place; follows with Dr. Graves PAF (paroxysmal atrial fibrillation) Presence of combination internal cardiac defibrillator (ICD) and pacemaker Implanted 5+ years ago, Prenovatronic, last check ~08/2021 Pulmonary HTN PVD (peripheral vascular disease) Sleep apnea + nocturnal hypoxia > BIPAP + 2L O2 HS Stroke 11/2019 > residual speech difficulty/short term memory issues Surgical History H/O cardiac catheterization Non nonobstructive CAD on 2016 cardiac cath H/O total adrenalectomy Left (25 years ago) History of colonoscopy History of esophagogastroduodenoscopy (EGD) History of permanent cardiac pacemaker placement pacemaker/defib - Medronic - Follows Dr. Graves - Last check ~08/2021 S/P debridement (01/08/21) Left Lower Extremity Medial and Lateral excisional Debridement ( greater than 20 sq. 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 How many Children do You have: 1 Feels Safe at Home: Yes Assistive Devices: Hospital Bed Review of Systems Review of Systems: All systems reviewed & are unremarkable except as noted in HPI & below Physical Exam Constitutional: WD/WN, vitals as above Eyes: PERRL, conjunctivae normal, anicteric sclerae Neck: trachea midline, no thyromegaly Respiratory: normal respiratory effort; no respiratory distress and no labored breathing Cardiovascular: Rate/Rhythm: regular rate and regular rhythm Gastrointestinal (Abdomen): Inspection/Auscultation: abdomen normal to inspection; abdomen not distended Percussion/Palpation: + abdomen tender (RUQ) and abdomen soft; no guarding and abdomen not rigid Skin: no rashes, warm and dry Psychiatric: A+Ox3, euthymic affect Results & Data Vital Signs (Past 12 Hours) Vital Signs Temp Pulse Resp BP Pulse Ox O2 Del Method 09/16/22 20:14 73 09/16/22 18:50 78 95 09/16/22 18:45 183/115 H 09/16/22 18:45 75 20 94 09/16/22 18:40 75 13 97 09/16/22 18:30 75 23 90 09/16/22 18:30 183/122 H 09/16/22 18:20 84 21 92 09/16/22 18:10 74 10 L 90 09/16/22 18:00 73 14 96 09/16/22 18:00 185/117 H 09/16/22 17:50 69 96 09/16/22 17:49 72 16 90 09/16/22 17:49 185/117 H 09/16/22 17:40 77 23 96 09/16/22 17:34 180/115 H 09/16/22 17:34 72 16 93 09/16/22 17:31 197/132 H 09/16/22 17:31 99 09/16/22 17:20 17 09/16/22 17:10 74 97 09/16/22 17:00 71 22 94 09/16/22 17:00 162/94 H 09/16/22 16:50 73 24 95 05/30/23 16:40 72 23 96 09/16/22 16:20 73 09/16/22 16:31 163/104 H 09/16/22 16:31 77 23 94 09/16/22 16:30 71 22 97 09/16/22 16:21 70 18 09/16/22 16:10 Room Air 09/16/22 15:52 36.6 C 78 16 137/78 95 Room Air Laboratory Results 09/16/22 09/16/22 09/16/22 Range/Units 19:42 18:00 17:31 WBC (4.8-10.8) K/ul RBC (4.70-6.10) M/uL Hgb (14.0-18.0) g/dl Hct (42.0-52.0) % MCV (80.0-100.0) fL MCH (25.0-34.0) pg MCHC (32.0-36.0) g/dL RDW Std Deviation (36.4-46.3) fL RDW Coeff of Joey (11.5-14.5) % Plt Count (130-400) K/uL MPV (9.4-12.4) fL Immature Gran % (Auto) % Neut % (Auto) % Lymph % (Auto) % [place] % (Auto) % Eos % (Auto) % Baso % (Auto) % Neut # (Auto) (1.40-6.50) K/uL Lymph # (Auto) (1.2-3.4) K/uL [place] # (Auto) (0.11-0.59) K/uL Eos # (Auto) (0-0.50) K/uL Baso # (Auto) (0-0.2) K/uL Immature Gran # (Auto) (0.01-0.20) K/uL PT (9.0-12.0) Seconds INR (0.9-1.1) APTT (21.0-31.0) Seconds PTT Ratio Sodium (136-145) mmol/L Potassium Chloride (98-107) mmol/L Carbon Dioxide (21-32) mmol/L Anion Gap (3-11) BUN (6-23) mg/dl Creatinine (0.6-1.4) mg/dl Est Cr Clr Drug Dosing ml/min Est GFR ( Amer) ml/min Est GFR (Non-Af Amer) ml/min BUN/Creatinine Ratio (10-20) Glucose (70-99(Fasting)) mg/dl Calcium (8.6-10.3) mg/dl Magnesium (1.7-2.4) mg/dl Total Bilirubin (0.2-1.0) mg/dl AST ALT (7-52) U/L Alkaline Phosphatase (34-104) U/L Troponin I High Sens 39.9 H (0-20) pg/ml Total Protein (6.0-8.3) gm/dl Albumin (3.4-5.0) gm/dl Globulin (2.5-4.0) gm/dl Albumin/Globulin Ratio (0.9-2) Lipase (11-82) U/L Urine Color Urine Appearance (Clear) Urine pH (4.5-7.5) Ur Specific [place] (1.000-1.030) Urine Protein (Negative) Urine Glucose (UA) (Negative) Urine Ketones (Negative) Urine Blood (Negative) Urine Nitrite (Negative) Urine Bilirubin (Negative) Urine Urobilinogen (Negative) Ur Leukocyte Esterase (Negative) Urine WBC (Auto) (0-5) /hpf Urine RBC (Auto) (0-4) /hpf U Hyaline Cast (Auto) (0-5) /lpf U Epithel Cells (Auto) (0-5) /lpf Urine Bacteria (Auto) (Negative) Adenovirus (PCR) Not Detected (NotDetected) Anaplasma Smear Babesia Smear Babesia microti DNA PCR B. pertussis DNA (PCR) Not Detected (NotDetected) B.parapertussis DNA PCR Not Detected (NotDetected) Lyme Disease IgG Ab Negative (Negative) Lyme Disease IgM Ab Negative (Negative) C. pneumoniae DNA (PCR) Not Detected (NotDetected) Coronavirus OC43 (PCR) Not Detected (NotDetected) Coronavirus HKU1 (PCR) Not Detected (NotDetected) Coronavirus 229E (PCR) Not Detected (NotDetected) SARS-CoV-2 (PCR) Not Detected (NotDetected) Coronavirus NL63 (PCR) Not Detected (NotDetected) Human Metapneumovir PCR Not Detected (NotDetected) Influenza Type A (PCR) Not Detected (NotDetected) Influenza Type B (PCR) Not Detected (NotDetected) M. pneumoniae (PCR) Not Detected (NotDetected) Parainfluenza 1 (PCR) Not Detected (NotDetected) Parainfluenza 2 (PCR) Not Detected (NotDetected) Parainfluenza 3 (PCR) Not Detected (NotDetected) Parainfluenza 4 (PCR) Not Detected (NotDetected) RSV (PCR) Not Detected (NotDetected) Entero/Rhino (PCR) Not Detected (NotDetected) SARS-CoV-2, RNA, NAAT (NEGATIVE) 09/16/22 09/16/22 09/16/22 Range/Units 17:31 17:31 17:31 WBC (4.8-10.8) K/ul RBC (4.70-6.10) M/uL Hgb (14.0-18.0) g/dl Hct (42.0-52.0) % MCV (80.0-100.0) fL MCH (25.0-34.0) pg MCHC (32.0-36.0) g/dL RDW Std Deviation (36.4-46.3) fL RDW Coeff of Joey (11.5-14.5) % Plt Count (130-400) K/uL MPV (9.4-12.4) fL Immature Gran % (Auto) % Neut % (Auto) % Lymph % (Auto) % [place] % (Auto) % Eos % (Auto) % Baso % (Auto) % Neut # (Auto) (1.40-6.50) K/uL Lymph # (Auto) (1.2-3.4) K/uL [place] # (Auto) (0.11-0.59) K/uL Eos # (Auto) (0-0.50) K/uL Baso # (Auto) (0-0.2) K/uL Immature Gran # (Auto) (0.01-0.20) K/uL PT (9.0-12.0) Seconds INR (0.9-1.1) APTT (21.0-31.0) Seconds PTT Ratio Sodium (136-145) mmol/L Potassium 3.8 Chloride (98-107) mmol/L Carbon Dioxide (21-32) mmol/L Anion Gap (3-11) BUN (6-23) mg/dl Creatinine (0.6-1.4) mg/dl Est Cr Clr Drug Dosing ml/min Est GFR ( Amer) ml/min Est GFR (Non-Af Amer) ml/min BUN/Creatinine Ratio (10-20) Glucose (70-99(Fasting)) mg/dl Calcium (8.6-10.3) mg/dl Magnesium (1.7-2.4) mg/dl Total Bilirubin (0.2-1.0) mg/dl AST 19 ALT (7-52) U/L Alkaline Phosphatase (34-104) U/L Troponin I High Sens (0-20) pg/ml Total Protein (6.0-8.3) gm/dl Albumin (3.4-5.0) gm/dl Globulin (2.5-4.0) gm/dl Albumin/Globulin Ratio (0.9-2) Lipase (11-82) U/L Urine Color Urine Appearance (Clear) Urine pH (4.5-7.5) Ur Specific [place] (1.000-1.030) Urine Protein (Negative) Urine Glucose (UA) (Negative) Urine Ketones (Negative) Urine Blood (Negative) Urine Nitrite (Negative) Urine Bilirubin (Negative) Urine Urobilinogen (Negative) Ur Leukocyte Esterase (Negative) Urine WBC (Auto) (0-5) /hpf Urine RBC (Auto) (0-4) /hpf U Hyaline Cast (Auto) (0-5) /lpf U Epithel Cells (Auto) (0-5) /lpf Urine Bacteria (Auto) (Negative) Adenovirus (PCR) (NotDetected) Anaplasma Smear See Comment Babesia Smear See Comment Babesia microti DNA PCR Pending B. pertussis DNA (PCR) (NotDetected) B.parapertussis DNA PCR (NotDetected) Lyme Disease IgG Ab (Negative) Lyme Disease IgM Ab (Negative) C. pneumoniae DNA (PCR) (NotDetected) Coronavirus OC43 (PCR) (NotDetected) Coronavirus HKU1 (PCR) (NotDetected) Coronavirus 229E (PCR) (NotDetected) SARS-CoV-2 (PCR) (NotDetected) Coronavirus NL63 (PCR) (NotDetected) Human Metapneumovir PCR (NotDetected) Influenza Type A (PCR) (NotDetected) Influenza Type B (PCR) (NotDetected) M. pneumoniae (PCR) (NotDetected) Parainfluenza 1 (PCR) (NotDetected) Parainfluenza 2 (PCR) (NotDetected) Parainfluenza 3 (PCR) (NotDetected) Parainfluenza 4 (PCR) (NotDetected) RSV (PCR) (NotDetected) Entero/Rhino (PCR) (NotDetected) SARS-CoV-2, RNA, NAAT (NEGATIVE) 09/16/22 09/16/22 09/16/22 Range/Units 16:28 16:25 16:21 WBC (4.8-10.8) K/ul RBC (4.70-6.10) M/uL Hgb (14.0-18.0) g/dl Hct (42.0-52.0) % MCV (80.0-100.0) fL MCH (25.0-34.0) pg MCHC (32.0-36.0) g/dL RDW Std Deviation (36.4-46.3) fL RDW Coeff of Joey (11.5-14.5) % Plt Count (130-400) K/uL MPV (9.4-12.4) fL Immature Gran % (Auto) % Neut % (Auto) % Lymph % (Auto) % [place] % (Auto) % Eos % (Auto) % Baso % (Auto) % Neut # (Auto) (1.40-6.50) K/uL Lymph # (Auto) (1.2-3.4) K/uL [place] # (Auto) (0.11-0.59) K/uL Eos # (Auto) (0-0.50) K/uL Baso # (Auto) (0-0.2) K/uL Immature Gran # (Auto) (0.01-0.20) K/uL PT (9.0-12.0) Seconds INR (0.9-1.1) APTT (21.0-31.0) Seconds PTT Ratio Sodium 140 (136-145) mmol/L Potassium TNP Chloride 104 (98-107) mmol/L Carbon Dioxide 28 (21-32) mmol/L Anion Gap 8 (3-11) BUN 62 H (6-23) mg/dl Creatinine 3.90 H (0.6-1.4) mg/dl Est Cr Clr Drug Dosing 21.8 ml/min Est GFR ( Amer) 17.2 ml/min Est GFR (Non-Af Amer) 14.9 ml/min BUN/Creatinine Ratio 15.9 (10-20) Glucose 174 H (70-99(Fasting)) mg/dl Calcium 9.1 (8.6-10.3) mg/dl Magnesium 2.3 (1.7-2.4) mg/dl Total Bilirubin 0.7 (0.2-1.0) mg/dl AST TNP ALT 25 (7-52) U/L Alkaline Phosphatase 128 H (34-104) U/L Troponin I High Sens 39.7 H (0-20) pg/ml Total Protein 7.2 (6.0-8.3) gm/dl Albumin 3.9 (3.4-5.0) gm/dl Globulin 3.3 (2.5-4.0) gm/dl Albumin/Globulin Ratio 1.2 (0.9-2) Lipase 10 L (11-82) U/L Urine Color Yellow Urine Appearance Clear (Clear) Urine pH 5.5 (4.5-7.5) Ur Specific [place] 1.012 (1.000-1.030) Urine Protein 2+ H (Negative) Urine Glucose (UA) 1+ H (Negative) Urine Ketones Negative (Negative) Urine Blood Negative (Negative) Urine Nitrite Negative (Negative) Urine Bilirubin Negative (Negative) Urine Urobilinogen Negative (Negative) Ur Leukocyte Esterase Negative (Negative) Urine WBC (Auto) 1-5 (0-5) /hpf Urine RBC (Auto) 0-4 (0-4) /hpf U Hyaline Cast (Auto) 1-5 (0-5) /lpf U Epithel Cells (Auto) 10-20 H (0-5) /lpf Urine Bacteria (Auto) Negative (Negative) Adenovirus (PCR) (NotDetected) Anaplasma Smear Babesia Smear Babesia microti DNA PCR B. pertussis DNA (PCR) (NotDetected) B.parapertussis DNA PCR (NotDetected) Lyme Disease IgG Ab (Negative) Lyme Disease IgM Ab (Negative) C. pneumoniae DNA (PCR) (NotDetected) Coronavirus OC43 (PCR) (NotDetected) Coronavirus HKU1 (PCR) (NotDetected) Coronavirus 229E (PCR) (NotDetected) SARS-CoV-2 (PCR) (NotDetected) Coronavirus NL63 (PCR) (NotDetected) Human Metapneumovir PCR (NotDetected) Influenza Type A (PCR) (NotDetected) Influenza Type B (PCR) (NotDetected) M. pneumoniae (PCR) (NotDetected) Parainfluenza 1 (PCR) (NotDetected) Parainfluenza 2 (PCR) (NotDetected) Parainfluenza 3 (PCR) (NotDetected) Parainfluenza 4 (PCR) (NotDetected) RSV (PCR) (NotDetected) Entero/Rhino (PCR) (NotDetected) SARS-CoV-2, RNA, NAAT NEGATIVE (NEGATIVE) 09/16/22 09/16/22 Range/Units 16:21 16:21 WBC 1.83 L (4.8-10.8) K/ul RBC 4.64 L (4.70-6.10) M/uL Hgb 13.3 L (14.0-18.0) g/dl Hct 40.7 L (42.0-52.0) % MCV 87.7 (80.0-100.0) fL MCH 28.7 (25.0-34.0) pg MCHC 32.7 (32.0-36.0) g/dL RDW Std Deviation 49.2 H (36.4-46.3) fL RDW Coeff of Joey 15.3 H (11.5-14.5) % Plt Count 84 L (130-400) K/uL MPV 11.1 (9.4-12.4) fL Immature Gran % (Auto) 3.8 % Neut % (Auto) 73.3 % Lymph % (Auto) 19.7 % [place] % (Auto) 2.2 % Eos % (Auto) 0.5 % Baso % (Auto) 0.5 % Neut # (Auto) 1.34 L (1.40-6.50) K/uL Lymph # (Auto) 0.36 L (1.2-3.4) K/uL [place] # (Auto) 0.04 L (0.11-0.59) K/uL Eos # (Auto) 0.01 (0-0.50) K/uL Baso # (Auto) 0.01 (0-0.2) K/uL Immature Gran # (Auto) 0.07 (0.01-0.20) K/uL PT 11.9 (9.0-12.0) Seconds INR 1.1 (0.9-1.1) APTT 26.2 (21.0-31.0) Seconds PTT Ratio 0.9 Sodium (136-145) mmol/L Potassium Chloride (98-107) mmol/L Carbon Dioxide (21-32) mmol/L Anion Gap (3-11) BUN (6-23) mg/dl Creatinine (0.6-1.4) mg/dl Est Cr Clr Drug Dosing ml/min Est GFR ( Amer) ml/min Est GFR (Non-Af Amer) ml/min BUN/Creatinine Ratio (10-20) Glucose (70-99(Fasting)) mg/dl Calcium (8.6-10.3) mg/dl Magnesium (1.7-2.4) mg/dl Total Bilirubin (0.2-1.0) mg/dl AST ALT (7-52) U/L Alkaline Phosphatase (34-104) U/L Troponin I High Sens (0-20) pg/ml Total Protein (6.0-8.3) gm/dl Albumin (3.4-5.0) gm/dl Globulin (2.5-4.0) gm/dl Albumin/Globulin Ratio (0.9-2) Lipase (11-82) U/L Urine Color Urine Appearance (Clear) Urine pH (4.5-7.5) Ur Specific [place] (1.000-1.030) Urine Protein (Negative) Urine Glucose (UA) (Negative) Urine Ketones (Negative) Urine Blood (Negative) Urine Nitrite (Negative) Urine Bilirubin (Negative) Urine Urobilinogen (Negative) Ur Leukocyte Esterase (Negative) Urine WBC (Auto) (0-5) /hpf Urine RBC (Auto) (0-4) /hpf U Hyaline Cast (Auto) (0-5) /lpf U Epithel Cells (Auto) (0-5) /lpf Urine Bacteria (Auto) (Negative) Adenovirus (PCR) (NotDetected) Anaplasma Smear Babesia Smear Babesia microti DNA PCR B. pertussis DNA (PCR) (NotDetected) B.parapertussis DNA PCR (NotDetected) Lyme Disease IgG Ab (Negative) Lyme Disease IgM Ab (Negative) C. pneumoniae DNA (PCR) (NotDetected) Coronavirus OC43 (PCR) (NotDetected) Coronavirus HKU1 (PCR) (NotDetected) Coronavirus 229E (PCR) (NotDetected) SARS-CoV-2 (PCR) (NotDetected) Coronavirus NL63 (PCR) (NotDetected) Human Metapneumovir PCR (NotDetected) Influenza Type A (PCR) (NotDetected) Influenza Type B (PCR) (NotDetected) M. pneumoniae (PCR) (NotDetected) Parainfluenza 1 (PCR) (NotDetected) Parainfluenza 2 (PCR) (NotDetected) Parainfluenza 3 (PCR) (NotDetected) Parainfluenza 4 (PCR) (NotDetected) RSV (PCR) (NotDetected) Entero/Rhino (PCR) (NotDetected) SARS-CoV-2, RNA, NAAT (NEGATIVE) Diagnostic Findings ULTRASOUND RIGHT UPPER QUADRANT ABDOMEN CLINICAL HISTORY: Right upper quadrant abdominal pain. COMPARISON STUDY: Abdominal CT dated 09/17/2020. TECHNIQUE: Real-time, grayscale, and color flow sonography of the right upper quadrant of the abdomen was performed. Images are reviewed in the transverse and longitudinal planes. FINDINGS: Liver: The liver is normal in size and echotexture. There is no intrahepatic biliary ductal dilatation. The main portal vein is patent. Gallbladder: The gallbladder is distended and contains shadowing gallstones. The gallbladder wall is top normal in thickness measuring up to 3 mm. There is trace pericholecystic fluid. A sonographic Baumann's sign is reportedly present. The common bile duct measures up to 1.0 cm in diameter. Pancreas: Visualized portions of the pancreatic head and body are normal in appearance. The splenic vein is patent. Right kidney: Survey images of the right kidney demonstrate cortical atrophy. Increased echotexture suggests medical renal disease. There is no hydronephrosis. Ascites: None. IMPRESSION: 1. Cholelithiasis within a distended and abnormal appearing gallbladder. Acute cholecystitis is not excluded. Surgical consultation is advised. A nuclear hepatobiliary scan could be considered for confirmation. 2. No intrahepatic biliary ductal dilatation is seen. The common bile duct is dilated measuring 1.0 cm. (3) Hypertension Hypertension type: unspecified Qualified Code(s): I10 - Essential (primary) hypertension
--- NOTE | 2022-09-16 22:01 | CT Scan Report ---
Exam(s): CT ABDOMEN + PELVIS Without Contrast EXAM: CT Abdomen and Pelvis Without Intravenous Contrast CLINICAL HISTORY: Reason for exam: abd pain. TECHNIQUE: Axial computed tomography images of the abdomen and pelvis without intravenous contrast. CTDI is 27.76 mGy and DLP is 1534.77 mGy-cm. Automated exposure control was utilized for the study. A dose lowering technique was utilized adhering to the principles of ALARA. COMPARISON: No relevant prior studies available. FINDINGS: Lung bases: Unremarkable. No mass. No consolidation. ABDOMEN: Liver: Unremarkable. Gallbladder and bile ducts: Mild pneumobilia, correlate for any history of biliary intervention. Cholelithiasis. No ductal dilation. Pancreas: Unremarkable. No ductal dilation. Spleen: Unremarkable. No splenomegaly. Adrenals: Unremarkable. No mass. Kidneys and ureters: LEFT renal cyst measures 3.4 x 3.6 cm. No obstructing stones. No hydronephrosis. Stomach and bowel: Diverticulosis, without acute diverticulitis. No small bowel obstruction. No free intraperitoneal air. PELVIS: Appendix: Normal appendix. Bladder: Unremarkable. No stones. Reproductive: Unremarkable as visualized. ABDOMEN and PELVIS: Intraperitoneal space: Unremarkable. No free air. No significant fluid collection. Bones/joints: Degenerative changes of the spine. No acute fracture. No dislocation. Soft tissues: Small fat-containing bilateral inguinal hernias. Vasculature: Atherosclerotic changes of the aorta. No abdominal aortic aneurysm. Lymph nodes: Unremarkable. No enlarged lymph nodes. IMPRESSION: 1. Normal appendix. 2. Mild pneumobilia, correlate for any history of biliary intervention. Cholelithiasis. 3. Diverticulosis, without acute diverticulitis. No small bowel obstruction. No free intraperitoneal air. Electronically signed by: Yg Duran MD 09/16/22 22:00 PM
[2022-09-16] MEDS ORDERED: Heparin IV Adult Wt-Based Low-Dose *NO* Bolus Protocol IV STA (22:33)
[2022-09-16] MEDS ORDERED: ERTAPENEM SODIUM 500 MG in SYRINGE 0 ML IV STA (22:34)
[2022-09-16] MEDS ORDERED: GLUCAGON FOR INJ 1 MG VIAL SQ PRN (22:43)
[2022-09-16] MEDS ORDERED: GLUCOSE 40% GEL 15 GM TUBE PO PRN (22:43)
[2022-09-16] MEDS ORDERED: CARBOHYDRATES FOR HYPOGLYCEMIA PO PRN (22:43)
[2022-09-16] MEDS ORDERED: ACETAMINOPHEN 325 MG TAB PO PRN (22:43)
[2022-09-16] MEDS ORDERED: GLUCOSE 10 TAB/TUBE PO PRN (22:43)
[2022-09-16] MEDS ORDERED: DEXTROSE 50% 50 ML SYRINGE IV PRN (22:43)
--- NOTE | 2022-09-16 23:36 | Emergency Department Note ---
Impression & Plan Acute cholecystitis, Tachycardia, Pacemaker ED Provider Note CHIEF COMPLAINT: Epigastric abdominal pain HISTORY OF PRESENT ILLNESS: This 67-year-old male patient with an extensive past medical history including severe aortic stenosis, approximately 3 months status post TAVR, AICD/pacemaker placement, chronic kidney disease, hypertension, chronic atrial fib, peripheral arterial disease, congestive heart failure, nonsustained VT, diabetes, diabetic neuropathy, COPD, CAD [facility] with complaints of epigastric abdominal pain. Per EMS, the patient initially complained of chest discomfort and during transport converted to a tachycardic rhythm with wide-complex and occasional pacer spikes. Patient's blood pressure remained stable however he was given 150 mg of IV amiodarone by my medical command, with resolution of tachycardia. The patient states last evening he developed right upper quadrant abdominal discomfort after dinner. He states he was not able to sleep last night due to the discomfort. Today the pain persisted and now it seems to be a bit worse. He was able to eat a hamburger and macaroni salad prior to the onset of symptoms. He states he has only had them often and some milk today. REVIEW OF SYSTEMS: A review of systems was performed with positives and pertinent negatives listed in the history of present illness. 10 systems were reviewed and are otherwise negative. ALLERGIES: see below MEDICATIONS: see below PMH: see below SOCIAL HISTORY: see below DDx: ACS, diverticulitis, obstruction, inflammatory bowel disease, renal colic, PUD, pancreatitis, biliary pathology, as well as other pathologies. PHYSICAL EXAM: Vital signs reviewed. General: Chronically ill-appearing 67-year-old male HEENT: No scleral icterus, PERRLA, neck supple. Moist mucous membranes Cardiovascular: Regular but tachycardic, distant heart tones Pulmonary: Clear to auscultation bilaterally, normal work of breathing. Abdomen: Soft, tender to palp in RUQ, mildly distended, positive bowel sounds. Musculoskeletal: Atraumatic, no peripheral edema. Neurologic: Patient awake alert and oriented x 3, speech is clear Skin: Warm, dry, no rash EMERGENCY DEPARTMENT COURSE/MDM: This patient was evaluated and appeared to be in no significant distress. IV access was obtained and laboratory work was drawn. The patient was placed on the latent print examiner noted to be in a ventricularly paced rhythm with wide complex. Patient's tachycardia seem to resolve after 150 mg of IV amiodarone. In review of the patient's records, he is on 200 mg of amiodarone twice daily. Patient's physical examination is consistent with right upper quadrant abdominal tenderness. His is at the bedside and mentions that he has had issues with his gallbladder in the past however they do not want to perform surgery until he is closer to 1 year post TAVR. Since laboratory work reveals a leukopenia at 1.8 with mild thrombocytopenia at 84. Ultrasound the right upper quadrant is consistent with cholelithiasis and a distended and abnormal appearing gallbladder. LFTs are within normal limits. Case was discussed with Dr. Burgos of general surgery who has agreed to consult on the patient. He will require medical admission due to his complicating medical history. He was given a dose of IV Mefoxin 2 g in the emergency department. I did explain the plan to the patient and his who agree. Case was discussed with Dr. Ashford for admission and further management. MONITORING: An order for cardiac monitoring was placed and the patient is noted to be in a ventricularly paced rhythm at 73 beats per minute. RADIOLOGY: Chest x-ray to my interpretation reveals no evidence for CHF, AICD in place. Otherwise defer to radiology Ultrasound the right upper quadrant per radiology: IMPRESSION: 1. Cholelithiasis within a distended and abnormal appearing gallbladder. Acute cholecystitis is not excluded. Surgical consultation is advised. A nuclear hepatobiliary scan could be considered for confirmation. 2. No intrahepatic biliary ductal dilatation is seen. The common bile duct is dilated measuring 1.0 cm. EKG: To my interpretation reveals a ventricularly paced rhythm at 78 bpm. Prolonged QRS, QTc of 640. No PVC, no PAC. When compared to previous dated December 01, 2021 AV dual paced complexes are no longer appreciated DISPOSITION: Admission Past Med/Surg History Medical History (Updated 09/17/22 @ 03:43 by Claudio Vazquez MD) Aortic stenosis Severe aortic stenosis vs pseudo aortic stenosis due to low output per cardio note from 12/2019 ECHO - Follows - Dr Star Delatorre Asthma has inhalers Atrial fibrillation Eliquis CAD (coronary artery disease) "nonobstructive" Calciphylaxis Current wound of right lower leg - being seen [facility] - almost healed per . Chronic anemia Chronic kidney disease Stage 4, under surveillance by Dr. Mcdermott (no dialysis at this time) Chronic systolic (congestive) heart failure COPD (chronic obstructive pulmonary disease) 2L at night Diabetic neuropathy DM type 2 (diabetes mellitus, type 2) IDDM Dyslipidemia Gall stones GERD (gastroesophageal reflux disease) History of COVID-19 Dx 08/05/20(hospitalized at [facility]) > symptoms at time of cough, SOB, generalized weakness, n/v/d, loss of taste/smell > "resolved" History of multiple pulmonary nodules Hypertension Hypertensive crisis LBBB (left bundle branch block) Follows Dr. Star Delatorre Nonischemic cardiomyopathy S/p BIV AICD in place; follows with Dr. Graves PAF (paroxysmal atrial fibrillation) Presence of combination internal cardiac defibrillator (ICD) and pacemaker Implanted 5+ years ago, appweevrtronic, last check ~08/2021 Pulmonary HTN PVD (peripheral vascular disease) Sleep apnea + nocturnal hypoxia > BIPAP + 2L O2 HS Stroke 11/2019 > residual speech difficulty/short term memory issues Surgical History H/O cardiac catheterization Non nonobstructive CAD on 2016 cardiac cath H/O total adrenalectomy Left (25 years ago) History of colonoscopy History of esophagogastroduodenoscopy (EGD) History of permanent cardiac pacemaker placement pacemaker/defib - Medronic - Follows Dr. Graves - Last check ~08/2021 S/P debridement (01/08/21) Left Lower Extremity Medial and Lateral excisional Debridement ( greater than 20 sq. cm and Biopsy( both wounds)) - Ignacio Chisholm, DO 01/08/21 Family History Sister Diabetes Brother Diabetes Other Hypertension Lung cancer Social History Smoking Status: Never smoker Tobacco Type: Smokeless Tobacco (Dip or Chew) Second Hand Exposure: No; Do You Dip or Chew Tobacco: Yes; Tobacco Cessation Education Requested by Patient: No Hx Alcohol Use: No Hx Substance Use: No Preferred Language: Vietnamese Communication Ability: Effective Visual Impairment: Limited Steeler Required: No Beliefs That Will Affect Care: None marital status: Current Living Situation: Spouse current occupational status: retired 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 How many Children do You have: 1 Other Information That Helps Us Care for You: No Feels Safe at Home: Yes Safety Concerns: Feels Safe At This Time Assistive Devices: CPAP and Oxygen - at Night Allergies Allergies Allergy/AdvReac Type Severity Reaction Status Date / Time prednisone AdvReac Severe BSG'S OVER Verified 09/16/22 16:54 400-CONFUSION, DISORIENTED Home Meds Home Medications Medication Instructions Recorded Confirmed aspirin 81 mg tablet,delayed 81 mg PO QAM 02/05/18 09/16/22 release pantoprazole 40 mg tablet,delayed 40 mg PO QAM 02/05/18 09/16/22 release (Protonix) albuterol sulfate 90 mcg/actuation 2 puff inhalation Q4H PRN 08/01/18 09/16/22 aerosol inhaler (ProAir HFA) Shortness Of Breath Or Wheezing ipratropium 0.5 mg-albuterol 3 mg 3 ml inhalation QID PRN Shortness 08/01/18 09/16/22 (2.5 mg base)/3 mL nebulization Of Breath Or Wheezing soln atorvastatin 80 mg tablet 80 mg PO QPM 09/17/20 09/16/22 insulin lispro 100 unit/mL 0 sliding scale dose subcut TIDM 01/17/21 09/16/22 subcutaneous pen (Humalog KwikPen (U-100) Insulin) apixaban 2.5 mg tablet 2.5 mg PO BID 03/01/21 09/16/22 torsemide 20 mg tablet See Rx Instructions .Route .COMPLEX 04/24/21 09/16/22 potassium chloride 20 mEq 20 meq PO .ON HOLD 07/03/21 09/16/22 tablet,extended release insulin glargine 100 unit/mL (3 32 unit subcut BID 10/23/21 09/16/22 mL) subcutaneous pen (Lantus Solostar U-100 Insulin) allopurinol 100 mg tablet 100 mg PO QAM 09/16/22 09/16/22 alprazolam 0.5 mg tablet 0.5 - 1 mg PO HS 09/16/22 09/16/22 amiodarone 200 mg tablet 200 mg PO AMHS 09/16/22 09/16/22 folic acid 1 mg tablet 1 mg PO QAM 09/16/22 09/16/22 lisinopril 20 mg tablet 20 mg PO HS 09/16/22 09/16/22 Previous Rx's Medication Instructions Recorded metoprolol succinate 100 mg 100 mg PO BID #60 tabs 08/14/20 tablet,extended release 24 hr (Toprol XL) Results & Data (ED) Vital Signs Vital Signs - 24 hr 09/16/22 15:52 09/16/22 15:52 09/16/22 16:10 Temperature 36.6 C Temperature Source Oral Pulse Rate 78 Pulse Rate from SpO2 Sensor Respiratory Rate 16 Respiratory Effort / Characteristics Non-Labored Non-Labored Respiratory Depth Normal Blood Pressure 137/78 Blood Pressure Mean 97 Pulse Oximetry 95 Oxygen Delivery Method Room Air Room Air Sepsis Recent Fever Within 48 Hours No Sepsis New/Unexplained Change in Mental Status N/A Sepsis Action Taken by Nursing No Action Required 09/16/22 16:39 09/16/22 16:21 09/16/22 16:30 Temperature Temperature Source Oral Pulse Rate 70 71 Pulse Rate from SpO2 Sensor 69 Respiratory Rate 18 22 Respiratory Effort / Characteristics Respiratory Depth Blood Pressure Blood Pressure Mean Pulse Oximetry 97 Oxygen Delivery Method Sepsis Recent Fever Within 48 Hours Sepsis New/Unexplained Change in Mental Status Sepsis Action Taken by Nursing 09/16/22 16:31 09/16/22 16:31 09/16/22 16:20 Temperature Temperature Source Pulse Rate 77 73 Pulse Rate from SpO2 Sensor 73 Respiratory Rate 23 Respiratory Effort / Characteristics Respiratory Depth Blood Pressure 163/104 H Blood Pressure Mean 123 Pulse Oximetry 94 Oxygen Delivery Method Sepsis Recent Fever Within 48 Hours Sepsis New/Unexplained Change in Mental Status Sepsis Action Taken by Nursing 09/16/22 16:40 09/16/22 16:50 09/16/22 17:00 Temperature Temperature Source Pulse Rate 72 73 Pulse Rate from SpO2 Sensor 71 73 Respiratory Rate 23 24 Respiratory Effort / Characteristics Respiratory Depth Blood Pressure 162/94 H Blood Pressure Mean 116 Pulse Oximetry 96 95 Oxygen Delivery Method Sepsis Recent Fever Within 48 Hours Sepsis New/Unexplained Change in Mental Status Sepsis Action Taken by Nursing 09/16/22 17:00 09/16/22 17:10 09/16/22 17:20 Temperature Temperature Source Pulse Rate 71 74 Pulse Rate from SpO2 Sensor 69 71 Respiratory Rate 22 17 Respiratory Effort / Characteristics Respiratory Depth Blood Pressure Blood Pressure Mean Pulse Oximetry 94 97 Oxygen Delivery Method Sepsis Recent Fever Within 48 Hours Sepsis New/Unexplained Change in Mental Status Sepsis Action Taken by Nursing 09/16/22 17:30 09/16/22 17:31 09/16/22 17:31 Temperature Temperature Source Pulse Rate Pulse Rate from SpO2 Sensor 69 75 Respiratory Rate Respiratory Effort / Characteristics Respiratory Depth Blood Pressure 197/132 H Blood Pressure Mean 153 Pulse Oximetry 99 Oxygen Delivery Method Sepsis Recent Fever Within 48 Hours Sepsis New/Unexplained Change in Mental Status Sepsis Action Taken by Nursing 09/16/22 17:34 09/16/22 17:34 09/16/22 17:40 Temperature Temperature Source Pulse Rate 72 77 Pulse Rate from SpO2 Sensor 72 76 Respiratory Rate 16 23 Respiratory Effort / Characteristics Respiratory Depth Blood Pressure 180/115 H Blood Pressure Mean 136 Pulse Oximetry 93 96 Oxygen Delivery Method Sepsis Recent Fever Within 48 Hours Sepsis New/Unexplained Change in Mental Status Sepsis Action Taken by Nursing 09/16/22 17:49 09/16/22 17:49 09/16/22 17:50 Temperature Temperature Source Pulse Rate 72 69 Pulse Rate from SpO2 Sensor 72 70 Respiratory Rate 16 Respiratory Effort / Characteristics Respiratory Depth Blood Pressure 185/117 H Blood Pressure Mean 139 Pulse Oximetry 90 96 Oxygen Delivery Method Sepsis Recent Fever Within 48 Hours Sepsis New/Unexplained Change in Mental Status Sepsis Action Taken by Nursing 09/16/22 18:00 09/16/22 18:00 09/16/22 18:10 Temperature Temperature Source Pulse Rate 73 74 Pulse Rate from SpO2 Sensor 73 74 Respiratory Rate 14 10 L Respiratory Effort / Characteristics Respiratory Depth Blood Pressure 185/117 H Blood Pressure Mean 139 Pulse Oximetry 96 90 Oxygen Delivery Method Sepsis Recent Fever Within 48 Hours Sepsis New/Unexplained Change in Mental Status Sepsis Action Taken by Nursing 09/16/22 18:20 09/16/22 18:30 09/16/22 18:30 Temperature Temperature Source Pulse Rate 84 75 Pulse Rate from SpO2 Sensor 82 78 Respiratory Rate 21 23 Respiratory Effort / Characteristics Respiratory Depth Blood Pressure 183/122 H Blood Pressure Mean 142 Pulse Oximetry 92 90 Oxygen Delivery Method Sepsis Recent Fever Within 48 Hours Sepsis New/Unexplained Change in Mental Status Sepsis Action Taken by Nursing 09/16/22 18:40 09/16/22 18:45 09/16/22 18:45 Temperature Temperature Source Pulse Rate 75 75 Pulse Rate from SpO2 Sensor 78 79 Respiratory Rate 13 20 Respiratory Effort / Characteristics Respiratory Depth Blood Pressure 183/115 H Blood Pressure Mean 137 Pulse Oximetry 97 94 Oxygen Delivery Method Sepsis Recent Fever Within 48 Hours Sepsis New/Unexplained Change in Mental Status Sepsis Action Taken by Nursing 09/16/22 18:50 09/16/22 20:14 Temperature Temperature Source Pulse Rate 78 73 Pulse Rate from SpO2 Sensor 78 Respiratory Rate Respiratory Effort / Characteristics Respiratory Depth Blood Pressure Blood Pressure Mean Pulse Oximetry 95 Oxygen Delivery Method Sepsis Recent Fever Within 48 Hours Sepsis New/Unexplained Change in Mental Status Sepsis Action Taken by Long-Term Medications Current Medication List: was personally reviewed by me Laboratory Data Attestation: I reviewed the patient's lab results. 09/16/22 16:21 09/16/22 17:31 Lab Results 09/16/22 09/16/22 09/16/22 Range/Units 16:21 16:21 16:21 WBC 1.83 L (4.8-10.8) K/ul RBC 4.64 L (4.70-6.10) M/uL Hgb 13.3 L (14.0-18.0) g/dl Hct 40.7 L (42.0-52.0) % MCV 87.7 (80.0-100.0) fL MCH 28.7 (25.0-34.0) pg MCHC 32.7 (32.0-36.0) g/dL RDW Std Deviation 49.2 H (36.4-46.3) fL RDW Coeff of Joey 15.3 H (11.5-14.5) % Plt Count 84 L (130-400) K/uL MPV 11.1 (9.4-12.4) fL Immature Gran % (Auto) 3.8 % Neut % (Auto) 73.3 % Lymph % (Auto) 19.7 % Stokes % (Auto) 2.2 % Eos % (Auto) 0.5 % Baso % (Auto) 0.5 % Neut # (Auto) 1.34 L (1.40-6.50) K/uL Lymph # (Auto) 0.36 L (1.2-3.4) K/uL Stokes # (Auto) 0.04 L (0.11-0.59) K/uL Eos # (Auto) 0.01 (0-0.50) K/uL Baso # (Auto) 0.01 (0-0.2) K/uL Immature Gran # (Auto) 0.07 (0.01-0.20) K/uL PT 11.9 (9.0-12.0) Seconds INR 1.1 (0.9-1.1) APTT 26.2 (21.0-31.0) Seconds PTT Ratio 0.9 Sodium 140 (136-145) mmol/L Potassium TNP Chloride 104 (98-107) mmol/L Carbon Dioxide 28 (21-32) mmol/L Anion Gap 8 (3-11) BUN 62 H (6-23) mg/dl Creatinine 3.90 H (0.6-1.4) mg/dl Est Cr Clr Drug Dosing 21.8 ml/min Est GFR ( Amer) 17.2 ml/min Est GFR (Non-Af Amer) 14.9 ml/min BUN/Creatinine Ratio 15.9 (10-20) Glucose 174 H (70-99(Fasting)) mg/dl Calcium 9.1 (8.6-10.3) mg/dl Magnesium 2.3 (1.7-2.4) mg/dl Total Bilirubin 0.7 (0.2-1.0) mg/dl AST TNP ALT 25 (7-52) U/L Alkaline Phosphatase 128 H (34-104) U/L Troponin I High Sens 39.7 H (0-20) pg/ml Total Protein 7.2 (6.0-8.3) gm/dl Albumin 3.9 (3.4-5.0) gm/dl Globulin 3.3 (2.5-4.0) gm/dl Albumin/Globulin Ratio 1.2 (0.9-2) Lipase 10 L (11-82) U/L Urine Color Urine Appearance (Clear) Urine pH (4.5-7.5) Ur Specific Douglas (1.000-1.030) Urine Protein (Negative) Urine Glucose (UA) (Negative) Urine Ketones (Negative) Urine Blood (Negative) Urine Nitrite (Negative) Urine Bilirubin (Negative) Urine Urobilinogen (Negative) Ur Leukocyte Esterase (Negative) Urine WBC (Auto) (0-5) /hpf Urine RBC (Auto) (0-4) /hpf U Hyaline Cast (Auto) (0-5) /lpf U Epithel Cells (Auto) (0-5) /lpf Urine Bacteria (Auto) (Negative) Adenovirus (PCR) (NotDetected) Anaplasma Smear Babesia Smear B. pertussis DNA (PCR) (NotDetected) B.parapertussis DNA PCR (NotDetected) Lyme Disease IgG Ab (Negative) Lyme Disease IgM Ab (Negative) C. pneumoniae DNA (PCR) (NotDetected) Coronavirus OC43 (PCR) (NotDetected) Coronavirus HKU1 (PCR) (NotDetected) Coronavirus 229E (PCR) (NotDetected) SARS-CoV-2 (PCR) (NotDetected) Coronavirus NL63 (PCR) (NotDetected) Human Metapneumovir PCR (NotDetected) Influenza Type A (PCR) (NotDetected) Influenza Type B (PCR) (NotDetected) M. pneumoniae (PCR) (NotDetected) Parainfluenza 1 (PCR) (NotDetected) Parainfluenza 2 (PCR) (NotDetected) Parainfluenza 3 (PCR) (NotDetected) Parainfluenza 4 (PCR) (NotDetected) RSV (PCR) (NotDetected) Entero/Rhino (PCR) (NotDetected) SARS-CoV-2, RNA, NAAT (NEGATIVE) 09/16/22 09/16/22 09/16/22 Range/Units 16:25 16:28 17:31 WBC (4.8-10.8) K/ul RBC (4.70-6.10) M/uL Hgb (14.0-18.0) g/dl Hct (42.0-52.0) % MCV (80.0-100.0) fL MCH (25.0-34.0) pg MCHC (32.0-36.0) g/dL RDW Std Deviation (36.4-46.3) fL RDW Coeff of Joey (11.5-14.5) % Plt Count (130-400) K/uL MPV (9.4-12.4) fL Immature Gran % (Auto) % Neut % (Auto) % Lymph % (Auto) % Stokes % (Auto) % Eos % (Auto) % Baso % (Auto) % Neut # (Auto) (1.40-6.50) K/uL Lymph # (Auto) (1.2-3.4) K/uL Stokes # (Auto) (0.11-0.59) K/uL Eos # (Auto) (0-0.50) K/uL Baso # (Auto) (0-0.2) K/uL Immature Gran # (Auto) (0.01-0.20) K/uL PT (9.0-12.0) Seconds INR (0.9-1.1) APTT (21.0-31.0) Seconds PTT Ratio Sodium (136-145) mmol/L Potassium 3.8 Chloride (98-107) mmol/L Carbon Dioxide (21-32) mmol/L Anion Gap (3-11) BUN (6-23) mg/dl Creatinine (0.6-1.4) mg/dl Est Cr Clr Drug Dosing ml/min Est GFR ( Amer) ml/min Est GFR (Non-Af Amer) ml/min BUN/Creatinine Ratio (10-20) Glucose (70-99(Fasting)) mg/dl Calcium (8.6-10.3) mg/dl Magnesium (1.7-2.4) mg/dl Total Bilirubin (0.2-1.0) mg/dl AST 19 ALT (7-52) U/L Alkaline Phosphatase (34-104) U/L Troponin I High Sens (0-20) pg/ml Total Protein (6.0-8.3) gm/dl Albumin (3.4-5.0) gm/dl Globulin (2.5-4.0) gm/dl Albumin/Globulin Ratio (0.9-2) Lipase (11-82) U/L Urine Color Yellow Urine Appearance Clear (Clear) Urine pH 5.5 (4.5-7.5) Ur Specific Douglas 1.012 (1.000-1.030) Urine Protein 2+ H (Negative) Urine Glucose (UA) 1+ H (Negative) Urine Ketones Negative (Negative) Urine Blood Negative (Negative) Urine Nitrite Negative (Negative) Urine Bilirubin Negative (Negative) Urine Urobilinogen Negative (Negative) Ur Leukocyte Esterase Negative (Negative) Urine WBC (Auto) 1-5 (0-5) /hpf Urine RBC (Auto) 0-4 (0-4) /hpf U Hyaline Cast (Auto) 1-5 (0-5) /lpf U Epithel Cells (Auto) 10-20 H (0-5) /lpf Urine Bacteria (Auto) Negative (Negative) Adenovirus (PCR) (NotDetected) Anaplasma Smear Babesia Smear B. pertussis DNA (PCR) (NotDetected) B.parapertussis DNA PCR (NotDetected) Lyme Disease IgG Ab (Negative) Lyme Disease IgM Ab (Negative) C. pneumoniae DNA (PCR) (NotDetected) Coronavirus OC43 (PCR) (NotDetected) Coronavirus HKU1 (PCR) (NotDetected) Coronavirus 229E (PCR) (NotDetected) SARS-CoV-2 (PCR) (NotDetected) Coronavirus NL63 (PCR) (NotDetected) Human Metapneumovir PCR (NotDetected) Influenza Type A (PCR) (NotDetected) Influenza Type B (PCR) (NotDetected) M. pneumoniae (PCR) (NotDetected) Parainfluenza 1 (PCR) (NotDetected) Parainfluenza 2 (PCR) (NotDetected) Parainfluenza 3 (PCR) (NotDetected) Parainfluenza 4 (PCR) (NotDetected) RSV (PCR) (NotDetected) Entero/Rhino (PCR) (NotDetected) SARS-CoV-2, RNA, NAAT NEGATIVE (NEGATIVE) 09/16/22 09/16/22 09/16/22 Range/Units 17:31 17:31 18:00 WBC (4.8-10.8) K/ul RBC (4.70-6.10) M/uL Hgb (14.0-18.0) g/dl Hct (42.0-52.0) % MCV (80.0-100.0) fL MCH (25.0-34.0) pg MCHC (32.0-36.0) g/dL RDW Std Deviation (36.4-46.3) fL RDW Coeff of Joey (11.5-14.5) % Plt Count (130-400) K/uL MPV (9.4-12.4) fL Immature Gran % (Auto) % Neut % (Auto) % Lymph % (Auto) % Stokes % (Auto) % Eos % (Auto) % Baso % (Auto) % Neut # (Auto) (1.40-6.50) K/uL Lymph # (Auto) (1.2-3.4) K/uL Stokes # (Auto) (0.11-0.59) K/uL Eos # (Auto) (0-0.50) K/uL Baso # (Auto) (0-0.2) K/uL Immature Gran # (Auto) (0.01-0.20) K/uL PT (9.0-12.0) Seconds INR (0.9-1.1) APTT (21.0-31.0) Seconds PTT Ratio Sodium (136-145) mmol/L Potassium Chloride (98-107) mmol/L Carbon Dioxide (21-32) mmol/L Anion Gap (3-11) BUN (6-23) mg/dl Creatinine (0.6-1.4) mg/dl Est Cr Clr Drug Dosing ml/min Est GFR ( Amer) ml/min Est GFR (Non-Af Amer) ml/min BUN/Creatinine Ratio (10-20) Glucose (70-99(Fasting)) mg/dl Calcium (8.6-10.3) mg/dl Magnesium (1.7-2.4) mg/dl Total Bilirubin (0.2-1.0) mg/dl AST ALT (7-52) U/L Alkaline Phosphatase (34-104) U/L Troponin I High Sens (0-20) pg/ml Total Protein (6.0-8.3) gm/dl Albumin (3.4-5.0) gm/dl Globulin (2.5-4.0) gm/dl Albumin/Globulin Ratio (0.9-2) Lipase (11-82) U/L Urine Color Urine Appearance (Clear) Urine pH (4.5-7.5) Ur Specific Douglas (1.000-1.030) Urine Protein (Negative) Urine Glucose (UA) (Negative) Urine Ketones (Negative) Urine Blood (Negative) Urine Nitrite (Negative) Urine Bilirubin (Negative) Urine Urobilinogen (Negative) Ur Leukocyte Esterase (Negative) Urine WBC (Auto) (0-5) /hpf Urine RBC (Auto) (0-4) /hpf U Hyaline Cast (Auto) (0-5) /lpf U Epithel Cells (Auto) (0-5) /lpf Urine Bacteria (Auto) (Negative) Adenovirus (PCR) Not Detected (NotDetected) Anaplasma Smear See Comment Babesia Smear See Comment B. pertussis DNA (PCR) Not Detected (NotDetected) B.parapertussis DNA PCR Not Detected (NotDetected) Lyme Disease IgG Ab Negative (Negative) Lyme Disease IgM Ab Negative (Negative) C. pneumoniae DNA (PCR) Not Detected (NotDetected) Coronavirus OC43 (PCR) Not Detected (NotDetected) Coronavirus HKU1 (PCR) Not Detected (NotDetected) Coronavirus 229E (PCR) Not Detected (NotDetected) SARS-CoV-2 (PCR) Not Detected (NotDetected) Coronavirus NL63 (PCR) Not Detected (NotDetected) Human Metapneumovir PCR Not Detected (NotDetected) Influenza Type A (PCR) Not Detected (NotDetected) Influenza Type B (PCR) Not Detected (NotDetected) M. pneumoniae (PCR) Not Detected (NotDetected) Parainfluenza 1 (PCR) Not Detected (NotDetected) Parainfluenza 2 (PCR) Not Detected (NotDetected) Parainfluenza 3 (PCR) Not Detected (NotDetected) Parainfluenza 4 (PCR) Not Detected (NotDetected) RSV (PCR) Not Detected (NotDetected) Entero/Rhino (PCR) Not Detected (NotDetected) SARS-CoV-2, RNA, NAAT (NEGATIVE) 09/16/22 Range/Units 19:42 WBC (4.8-10.8) K/ul RBC (4.70-6.10) M/uL Hgb (14.0-18.0) g/dl Hct (42.0-52.0) % MCV (80.0-100.0) fL MCH (25.0-34.0) pg MCHC (32.0-36.0) g/dL RDW Std Deviation (36.4-46.3) fL RDW Coeff of Joey (11.5-14.5) % Plt Count (130-400) K/uL MPV (9.4-12.4) fL Immature Gran % (Auto) % Neut % (Auto) % Lymph % (Auto) % Stokes % (Auto) % Eos % (Auto) % Baso % (Auto) % Neut # (Auto) (1.40-6.50) K/uL Lymph # (Auto) (1.2-3.4) K/uL Stokes # (Auto) (0.11-0.59) K/uL Eos # (Auto) (0-0.50) K/uL Baso # (Auto) (0-0.2) K/uL Immature Gran # (Auto) (0.01-0.20) K/uL PT (9.0-12.0) Seconds INR (0.9-1.1) APTT (21.0-31.0) Seconds PTT Ratio Sodium (136-145) mmol/L Potassium Chloride (98-107) mmol/L Carbon Dioxide (21-32) mmol/L Anion Gap (3-11) BUN (6-23) mg/dl Creatinine (0.6-1.4) mg/dl Est Cr Clr Drug Dosing ml/min Est GFR ( Amer) ml/min Est GFR (Non-Af Amer) ml/min BUN/Creatinine Ratio (10-20) Glucose (70-99(Fasting)) mg/dl Calcium (8.6-10.3) mg/dl Magnesium (1.7-2.4) mg/dl Total Bilirubin (0.2-1.0) mg/dl AST ALT (7-52) U/L Alkaline Phosphatase (34-104) U/L Troponin I High Sens 39.9 H (0-20) pg/ml Total Protein (6.0-8.3) gm/dl Albumin (3.4-5.0) gm/dl Globulin (2.5-4.0) gm/dl Albumin/Globulin Ratio (0.9-2) Lipase (11-82) U/L Urine Color Urine Appearance (Clear) Urine pH (4.5-7.5) Ur Specific Douglas (1.000-1.030) Urine Protein (Negative) Urine Glucose (UA) (Negative) Urine Ketones (Negative) Urine Blood (Negative) Urine Nitrite (Negative) Urine Bilirubin (Negative) Urine Urobilinogen (Negative) Ur Leukocyte Esterase (Negative) Urine WBC (Auto) (0-5) /hpf Urine RBC (Auto) (0-4) /hpf U Hyaline Cast (Auto) (0-5) /lpf U Epithel Cells (Auto) (0-5) /lpf Urine Bacteria (Auto) (Negative) Adenovirus (PCR) (NotDetected) Anaplasma Smear Babesia Smear B. pertussis DNA (PCR) (NotDetected) B.parapertussis DNA PCR (NotDetected) Lyme Disease IgG Ab (Negative) Lyme Disease IgM Ab (Negative) C. pneumoniae DNA (PCR) (NotDetected) Coronavirus OC43 (PCR) (NotDetected) Coronavirus HKU1 (PCR) (NotDetected) Coronavirus 229E (PCR) (NotDetected) SARS-CoV-2 (PCR) (NotDetected) Coronavirus NL63 (PCR) (NotDetected) Human Metapneumovir PCR (NotDetected) Influenza Type A (PCR) (NotDetected) Influenza Type B (PCR) (NotDetected) M. pneumoniae (PCR) (NotDetected) Parainfluenza 1 (PCR) (NotDetected) Parainfluenza 2 (PCR) (NotDetected) Parainfluenza 3 (PCR) (NotDetected) Parainfluenza 4 (PCR) (NotDetected) RSV (PCR) (NotDetected) Entero/Rhino (PCR) (NotDetected) SARS-CoV-2, RNA, NAAT (NEGATIVE) Administered Medications Allopurinol (Allopurinol 100 Mg Tab) 100 mg PO QAM ALYSIA Stop: 10/17/22 08:59 Last Admin: 09/17/22 08:59 Dose: 100 mg Documented By: LISA Alprazolam (Alprazolam 0.5 Mg Tablet) 0.5 mg PO HS ALYSIA Stop: 10/16/22 22:42 Last Admin: 09/17/22 19:59 Dose: 0.5 mg Documented By: Admin: 09/16/22 23:50 Dose: 0.5 mg Documented By: TPB Amiodarone HCl (Amiodarone 200 Mg Tab) 200 mg PO AMHS ALYSIA Stop: 10/16/22 22:42 Last Admin: 09/17/22 20:00 Dose: 200 mg Documented By: Admin: 09/17/22 08:59 Dose: 200 mg Documented By: Admin: 09/16/22 23:50 Dose: 200 mg Documented By: TPB Aspirin (Aspirin 81 Mg Ectab) [facility] [place] [place]: 10/17/22 08:59 Last Admin: 09/17/22 08:59 Dose: 81 mg Documented By: LISA Atorvastatin Calcium (Atorvastatin 40 Mg Tab) 80 mg PO QPM [facility] Stop: 10/16/22 22:42 Last Admin: 09/17/22 19:59 Dose: 80 mg Documented By: Admin: 09/16/22 23:51 Dose: 80 mg Documented By: TPDee Dee Folic Acid (Folic Acid 1 Mg Tab) 1 mg PO QAM [facility] Stop: 10/17/22 08:59 Last Admin: 09/17/22 08:59 Dose: 1 mg Documented By: LISA Heparin Sodium/Dextrose (Heparin Sodium/Dextrose) 25,000 units in 500 mls @ 22 mls/hr IV .[id number] [facility]; Protocol Stop: 10/16/22 22:14 Last Admin: 09/17/22 23:16 Dose: 1,100 units/hr, 22 mls/hr Documented By: TED Co-signed By: GUY Titration: 09/17/22 23:15 Dose: 1,100 units/hr, 22 mls/hr Documented By: TED Co-signed By: ARR Titration: 09/17/22 14:00 Dose: 1,100 units/hr, 22 mls/hr Documented By: LISA Co-signed By: AMW Titration: 09/17/22 07:15 Dose: 1,100 units/hr, 22 mls/hr Documented By: LISA Co-signed By: TPB Admin: 09/16/22 23:51 Dose: 1,000 units/hr, 20 mls/hr Documented By: TPDee Dee Co-signed By: GUY Ertapenem 500 mg/ Syringe 5 mls @ 2 mls/min IV Q24H [facility] Stop: 09/27/22 22:59 Last Admin: 09/17/22 23:16 Dose: 2 mls/min Documented By: TED Insulin Aspart (Insulin Aspart Per Unit Charge) 0 units SC ACHS [facility] Stop: 10/16/22 22:42 Last Admin: 09/17/22 20:00 Dose: 5 units Documented By: TED Co-signed By: SB Admin: 09/17/22 17:47 Dose: Not Given Documented By: Admin: 09/17/22 12:39 Dose: Not Given Documented By: Admin: 09/17/22 09:01 Dose: Not Given Documented By: Admin: 09/16/22 23:53 Dose: Not Given Documented By: ANTIONETTE Co-signed By: GUY Insulin Glargine (Lantus Per Unit Charge) 5 units SQ BID ALYSIA Stop: 10/16/22 22:42 Last Admin: 09/17/22 20:00 Dose: 5 units Documented By: TED Co-signed By: LAUREN Admin: 09/17/22 09:09 Dose: 5 units Documented By: LISA Co-signed By: KIMANI Admin: 09/16/22 23:52 Dose: 5 units Documented By: ANTIONETTE Co-signed By: GUY Lisinopril (Lisinopril 20 Mg Tab) 20 mg PO HS ALYSIA Stop: 10/17/22 20:59 Last Admin: 09/17/22 20:00 Dose: 20 mg Documented By: TED Metoprolol Succinate (Metoprolol Succ 50mg Ext Rel Tab) 100 mg PO BID ALYSIA Stop: 10/17/22 08:59 Last Admin: 09/17/22 20:00 Dose: 100 mg Documented By: Admin: 09/17/22 08:59 Dose: 100 mg Documented By: LISA Pantoprazole Sodium (Pantoprazole 40 Mg Tab) 40 mg PO QAM ALYSIA Stop: 10/17/22 08:59 Last Admin: 09/17/22 08:59 Dose: 40 mg Documented By: LISA Discontinued Medications Cefoxitin Sodium (Mefoxin) 2,000 mg in 60 mls @ 100 mls/hr IV NOW STA Stop: 09/16/22 18:51 Last Infusion: 09/16/22 19:34 Dose: 0 mls/hr Documented By: Admin: 09/16/22 18:57 Dose: 100 mls/hr Documented By: PATRICIA Ertapenem 500 mg/ Syringe 5 mls @ 2 mls/min IV ONE STA Stop: 09/16/22 22:36 Last Admin: 09/16/22 23:51 Dose: 2 mls/min Documented By: ANTIONETTE Lisinopril (Lisinopril 20 Mg Tab) 20 mg PO NOW STA Stop: 09/16/22 19:44 Last Admin: 09/16/22 20:03 Dose: 20 mg Documented By: SW Metoprolol Succinate (Metoprolol Succ 50mg Ext Rel Tab) 100 mg PO NOW STA Stop: 09/16/22 19:33 Last Admin: 09/16/22 20:02 Dose: 100 mg Documented By: SW Metoprolol Succinate (Metoprolol Succ 50mg Ext Rel Tab) 100 mg PO NOW STA Stop: 09/16/22 19:44 Last Admin: 09/16/22 19:54 Dose: Not Given Documented By: SW Morphine Sulfate (Morphine Sulfate 4 Mg/Ml 1 Ml Carp\\Vial) 4 mg IV NOW STA Stop: 09/16/22 16:11 Last Admin: 09/16/22 19:21 Dose: 4 mg Documented By: QGV Morphine Sulfate (Morphine Sulfate 4 Mg/Ml 1 Ml Carp\\Vial) Confirm Administered Dose 4 mg .ROUTE .STK-MED ONE Stop: 09/16/22 19:20 Last Admin: 09/16/22 19:21 Dose: Not Given Documented By: QGV Ondansetron HCl (Ondansetron Inj 2 Mg/Ml 2 Ml Vial) 4 mg IV NOW STA Stop: 09/16/22 16:11 Last Admin: 09/16/22 19:21 Dose: 4 mg Documented By: QGV Ondansetron HCl (Ondansetron Inj 2 Mg/Ml 2 Ml Vial) Confirm Administered Dose 4 mg .ROUTE .STK-MED ONE Stop: 09/16/22 19:20 Last Admin: 09/16/22 19:22 Dose: Not Given Documented By: QGV Imaging Data Radiologist's Impression: Chest X-Ray 09/16/22 16:10 XR chest 1V portable HISTORY: Chest pain, nonspecific COMPARISON: Chest 12/01/2021. FINDINGS: No pneumothorax. No pleural effusions. The cardiac silhouette remains enlarged. There is an aortic valve prosthesis and a left-sided pacemaker/defibrillator. No evidence for pulmonary edema. No new focal lung consolidations to suggest a pneumonia. No acute fractures identified. IMPRESSION: Stable cardiomegaly. Otherwise, no acute process within the chest. ACT 112: Negative or not required by law. Electronically signed by: Tremaine Blackmon M.D. 09/16/2022 4:43 PM Gallbladder Ultrasound 09/16/22 16:12 ULTRASOUND RIGHT UPPER QUADRANT ABDOMEN CLINICAL HISTORY: Right upper quadrant abdominal pain. COMPARISON STUDY: Abdominal CT dated 09/17/2020. TECHNIQUE: Real-time, grayscale, and color flow sonography of the right upper quadrant of the abdomen was performed. Images are reviewed in the transverse and longitudinal planes. FINDINGS: Liver: The liver is normal in size and echotexture. There is no intrahepatic biliary ductal dilatation. The main portal vein is patent. Gallbladder: The gallbladder is distended and contains shadowing gallstones. The gallbladder wall is top normal in thickness measuring up to 3 mm. There is trace pericholecystic fluid. A sonographic Baumann's sign is reportedly present. The common bile duct measures up to 1.0 cm in diameter. Pancreas: Visualized portions of the pancreatic head and body are normal in appearance. The splenic vein is patent. Right kidney: Survey images of the right kidney demonstrate cortical atrophy. Increased echotexture suggests medical renal disease. There is no hydronephrosis. Ascites: None. IMPRESSION: 1. Cholelithiasis within a distended and abnormal appearing gallbladder. Acute cholecystitis is not excluded. Surgical consultation is advised. A nuclear hepatobiliary scan could be considered for confirmation. 2. No intrahepatic biliary ductal dilatation is seen. The common bile duct is dilated measuring 1.0 cm. ACT 112: Negative or not required by law. Electronically signed by: Guerrero Hebert M.D. 09/16/2022 5:46 PM Abdomen/Pelvis CT 09/16/22 20:21 Exam(s): CT ABDOMEN + PELVIS Without Contrast EXAM: CT Abdomen and Pelvis Without Intravenous Contrast CLINICAL HISTORY: Reason for exam: abd pain. TECHNIQUE: Axial computed tomography images of the abdomen and pelvis without intravenous contrast. CTDI is 27.76 mGy and DLP is 1534.77 mGy-cm. Automated exposure control was utilized for the study. A dose lowering technique was utilized adhering to the principles of ALARA. COMPARISON: No relevant prior studies available. FINDINGS: Lung bases: Unremarkable. No mass. No consolidation. ABDOMEN: Liver: Unremarkable. Gallbladder and bile ducts: Mild pneumobilia, correlate for any history of biliary intervention. Cholelithiasis. No ductal dilation. Pancreas: Unremarkable. No ductal dilation. Spleen: Unremarkable. No splenomegaly. Adrenals: Unremarkable. No mass. Kidneys and ureters: LEFT renal cyst measures 3.4 x 3.6 cm. No obstructing stones. No hydronephrosis. Stomach and bowel: Diverticulosis, without acute diverticulitis. No small bowel obstruction. No free intraperitoneal air. PELVIS: Appendix: Normal appendix. Bladder: Unremarkable. No stones. Reproductive: Unremarkable as visualized. ABDOMEN and PELVIS: Intraperitoneal space: Unremarkable. No free air. No significant fluid collection. Bones/joints: Degenerative changes of the spine. No acute fracture. No dislocation. Soft tissues: Small fat-containing bilateral inguinal hernias. Vasculature: Atherosclerotic changes of the aorta. No abdominal aortic aneurysm. Lymph nodes: Unremarkable. No enlarged lymph nodes. IMPRESSION: 1. Normal appendix. 2. Mild pneumobilia, correlate for any history of biliary intervention. Cholelithiasis. 3. Diverticulosis, without acute diverticulitis. No small bowel obstruction. No free intraperitoneal air. Electronically signed by: Yg Duran MD 09/16/22 22:00 PM Discharge Plan Visit Data Chief Complaint: Chest Pain Stated Complaint: chest pain, shortness of breath ED Provider: Senia Kate Discharge Problem: Acute cholecystitis, Tachycardia, Pacemaker Patient Disposition: Admitted As Inpatient Discharge Instructions Interventions: ED Discharge Assessment Last Done: 09/16/22 22:19
[2022-09-16] MEDS: ALPRAZolam 0.5 MG TABLET PO SCH (23:50)
[2022-09-16] MEDS: AMIODARONE 200 MG TAB PO SCH (23:50)
[2022-09-16] MEDS: ATORVASTATIN 40 MG TAB PO SCH (23:51)
[2022-09-16] MEDS: HEPARIN SODIUM/DEXTROSE 25,000 UNITS/500 ML BAG IV SCH (23:51)
[2022-09-16] MEDS: LANTUS PER UNIT CHARGE SQ SCH (23:52)
[2022-09-16] MEDS: INSULIN ASPART PER UNIT CHARGE SC SCH (23:53)
[2022-09-17 06:18] LABS: Basophils # (auto) 0.05 K/uL (0-0.2); Basophils % (auto) 0.6 %; Eosinophils # (auto) 0.07 K/uL (0-0.50); Eosinophils % (auto) 0.9 %; Hematocrit (blood only) 38.8 % (42.0-52.0); Hemoglobin 12.4 g/dl (14.0-18.0); Immature Granulocytes # (auto) 0.03 K/uL (0.01-0.20); Immature Granulocytes % (auto) 0.4 %; Lymphocytes # (auto) 0.61 K/uL (1.2-3.4); Lymphocytes % (auto) 7.8 %; Mean Corpuscular Hemoglobin 28.4 pg (25.0-34.0); Mean Platelet Volume 10.5 fL (9.4-12.4); Monocytes # (auto) 0.78 K/uL (0.11-0.59); Monocytes % (auto) 9.9 %; Neutrophils % (auto) 80.4 %; Platelet Count 114 K/uL (130-400); RDW Coefficient of Variation 15.3 % (11.5-14.5); RDW Standard Deviation 50.1 fL (36.4-46.3); Red Blood Count 4.36 M/uL (4.70-6.10); White Blood Count 7.84 K/ul (4.8-10.8)
[2022-09-17 06:40] LABS: Partial Thromboplastin Ratio 1.4; Partial Thromboplastin Time 39.8 Seconds (21.0-31.0)
[2022-09-17 06:47] LABS: Troponin I High Sensitivity 45.5 pg/ml (0-20)
[2022-09-17 06:58] LABS: Calcium 9.3 mg/dl (8.6-10.3)
[2022-09-17 07:04] LABS: BUN Creatinine Ratio 14.6 (10-20); Creatinine Clr Calc Pharmacy 21.1 ml/min; Est GFR (African American) 16.8 ml/min; Est GFR (Non-African American) 14.5 ml/min
--- NOTE | 2022-09-17 08:24 | Electrocardiogram Report ---
Test Reason : Blood Pressure : / mmHG Vent. Rate : 078 BPM Atrial Rate : 086 BPM P-R Int : 000 ms QRS Dur : 230 ms QT Int : 562 ms P-R-T Axes : 000 175 -02 degrees QTc Int : 640 ms Ventricular-paced rhythm Abnormal ECG When compared with ECG of 02-DEC-2021 03:18, Vent. rate has decreased BY 12 BPM Confirmed by Shukri Roblero ([id number]) on 09/17/2022 8:23:49 AM Referred By: REFERRED SELF Confirmed By:Shukri Roblero
[2022-09-17] MEDS: PANTOprazole 40 MG TAB PO SCH (08:59)
[2022-09-17] MEDS: AMIODARONE 200 MG TAB PO SCH ×2 (08:59→20:00)
[2022-09-17] MEDS: allopurinoL 100 MG TAB PO SCH (08:59)
[2022-09-17] MEDS: METOPROLOL SUCC 50MG EXT REL TAB PO SCH ×2 (08:59→20:00)
[2022-09-17] MEDS: ASPIRIN 81 MG ECTAB PO SCH (08:59)
[2022-09-17] MEDS: FOLIC ACID 1 MG TAB PO SCH (08:59)
[2022-09-17] MEDS: INSULIN ASPART PER UNIT CHARGE SC SCH ×4 (09:01→20:00)
[2022-09-17] MEDS: LANTUS PER UNIT CHARGE SQ SCH ×2 (09:09→20:00)
--- NOTE | 2022-09-17 12:25 | Surgery Progress Note ---
Date of Service September 17, 2022 Assessment & Plan (1) Presence of combination internal cardiac defibrillator (ICD) and pacemaker: (2) Cholelithiasis: (3) Hypertension: (4) Nonischemic cardiomyopathy: Plan 67-year-old gentleman with extensive past medical history including extensive cardiac history presents with what appears to be developing acute cholecystitis. He has been seen in [place] for potential cholecystectomy following his recovery from his cardiac surgery. I would not recommend surgical intervention at this time. We will place him on a clear liquid diet and IV antibiotics. We will observe him for now. If he requires any surgical intervention, he will most likely have to be transferred to tertiary care center due to his extensive cardiac history. We will continue to follow. Admission and Anticipated Discharge Date Admission Date: September 16, 2022 Subjective Feeling better this morning. Less pain in the right upper quadrant. No nausea or vomiting. No fevers. Physical Exam Constitutional: WD/WN, vitals as above Gastrointestinal (Abdomen): Inspection/Auscultation: abdomen normal to inspection; abdomen not distended Percussion/Palpation: + abdomen tender (RUQ) and abdomen soft; no guarding and abdomen not rigid Skin: no rashes, warm and dry Psychiatric: A+Ox3, euthymic affect Results & Data Vital Signs (Past 12 Hours) Vital Signs Temp Pulse Pulse Resp BP BP Pulse Ox 09/17/22 11:37 36.6 C 75 19 121/75 95 09/17/22 11:21 72 09/17/22 11:21 09/17/22 07:09 37.2 C 68 18 109/64 90 09/17/22 03:50 36.8 C 67 18 151/90 H 95 O2 Del Method 09/17/22 11:37 Room Air 09/17/22 11:21 09/17/22 11:21 Room Air, CPAP 09/17/22 07:09 CPAP 09/17/22 03:50 Room Air (3) Hypertension Hypertension type: unspecified Qualified Code(s): I10 - Essential (primary) hypertension
[2022-09-17 14:56] LABS: Partial Thromboplastin Ratio 1.5
[2022-09-17 14:58] LABS: Partial Thromboplastin Time 43.7 Seconds (21.0-31.0)
[2022-09-17] MEDS: ALPRAZolam 0.5 MG TABLET PO SCH (19:59)
[2022-09-17] MEDS: ATORVASTATIN 40 MG TAB PO SCH (19:59)
--- NOTE | 2022-09-17 20:31 | Hospitalist Progress Note ---
Date of Service September 17, 2022 Assessment & Plan (1) Hypertensive crisis: Plan Right upper quadrant ultrasound 1. Cholelithiasis within a distended and abnormal appearing gallbladder. Acute cholecystitis is not excluded. Surgical consultation is advised. A nuclear hepatobiliary scan could be considered for confirmation. 2. No intrahepatic biliary ductal dilatation is seen. The common bile duct is dilated measuring 1.[address] abdomen pelvis 1. Normal appendix. 2. Mild pneumobilia, correlate for any history of biliary intervention.Cholelithiasis. 3. Diverticulosis, without acute diverticulitis. No small bowel obstruction. No free intraperitoneal air. Acute cholecystitis/symptomatic cholelithiasis-imaging studies as above. Seen by surgery who did not recommend surgical intervention at this time but recommended trial of antibiotics and clear liquid diet. He does seem to be improving with current management which we will continue. If he requires surgical intervention, he will most likely have to be transferred to tertiary center due to his extensive cardiac history. He has been seen in [place] for potential cholecystectomy following his recovery from his cardiac surgery. CKD4-creatinine at baseline of around 4. Avoid nephrotoxic medications. Monitor creatinine. Essential hypertension- BP much better. Currently normal. Continue lisinopril, Toprol Troponin elevation secondary to above in the setting of kidney dysfunction Chronic systolic heart failure secondary to nonischemic cardiomyopathy status post ICD- patient euvolemic, no exacerbation-no chest pain or shortness of breath History of aortic stenosis status post bioprosthetic AVR H/o embolic CVA History of atrial fibrillation on on Eliquis-continue home amiodarone, Toprol. Eliquis on hold and now on heparin drip ARPIT on CPAP-continue CPAP. DM 2 on insulin-A1c 7.1. Continue Lantus, sliding scale insulin, adjust as indicated. DVT prophylaxis- currently on heparin drip. We will switch to Eliquis if he continues to improve and does not require surgical consideration. Disposition-continue current level of care with IV antibiotics Admission and Anticipated Discharge Date Admission Date: September 16, 2022 Subjective Patient was seen and examined at bedside. He is feeling a lot better since admission. Still has right upper quadrant pain but much improved. Tolerating clears without issues. No nausea or vomiting. No fever or chills. Review of Systems Review of Systems: All systems reviewed & are unremarkable except as noted in Subjective Physical Exam Physical Exam: General: Sleeping comfortably with nasal CPAP, not in distress HEENT: EOMI, BRENDON, MMM Chest: Clear breath sounds bilaterally, no wheezes or crackles CVS: Regular rate and rhythm, normal heart sounds, no murmur Abdomen: Soft, mild RUQ tenderness, not distended, normal bowel sounds Neuro: Awake, alert, oriented, conversing well, non focal Extremities: No cyanosis, clubbing or edema Results & Data Results & Data Vital Signs (Past 12 Hours) Vital Signs Temp Pulse Pulse Resp BP Pulse Ox O2 Del Method 09/17/22 19:44 36.7 C 62 19 120/73 93 Room Air 09/17/22 16:07 36.6 C 71 19 105/70 90 Room Air 09/17/22 11:37 36.6 C 75 19 121/75 95 Room Air 09/17/22 11:21 72 09/17/22 11:21 Room Air, CPAP Laboratory Results Short CBC 09/17/22 Range/Units 05:54 WBC 7.84 (4.8-10.8) K/ul Hgb 12.4 L (14.0-18.0) g/dl Hct 38.8 L (42.0-52.0) % Plt Count 114 L (130-400) K/uL BMP 09/17/22 05:54 Sodium 142 Potassium 4.0 Chloride 104 Carbon Dioxide 30 BUN 58 H Creatinine 3.97 H Glucose 84 Calcium 9.3 Medications Administered Current Inpatient Medications Acetaminophen (Acetaminophen 325 Mg Tab) 650 mg PO Q4H PRN PRN Reason: Pain or Fever Stop: 10/16/22 22:42 Allopurinol (Allopurinol 100 Mg Tab) 100 mg PO QAM ALYSIA Stop: 10/17/22 08:59 Last Admin: 09/17/22 08:59 Dose: 100 mg Alprazolam (Alprazolam 0.5 Mg Tablet) 0.5 mg PO HS ALYSIA Stop: 10/16/22 22:42 Last Admin: 09/17/22 19:59 Dose: 0.5 mg Amiodarone HCl (Amiodarone 200 Mg Tab) 200 mg PO AMHS ALYSIA Stop: 10/16/22 22:42 Last Admin: 09/17/22 20:00 Dose: 200 mg Aspirin (Aspirin 81 Mg Ectab) 81 mg PO QAM ALYSIA Stop: 10/17/22 08:59 Last Admin: 09/17/22 08:59 Dose: 81 mg Atorvastatin Calcium (Atorvastatin 40 Mg Tab) 80 mg PO QPM [facility] Stop: 10/16/22 22:42 Last Admin: 09/17/22 19:59 Dose: 80 mg Dextrose (Dextrose 50% 50 Ml Syringe) 25 - 50 ml IV UD PRN; Protocol PRN Reason: Hypoglycemia Protocol Stop: 10/16/22 22:42 Folic Acid (Folic Acid 1 Mg Tab) 1 mg PO QAM ALYSIA Stop: 10/17/22 08:59 Last Admin: 09/17/22 08:59 Dose: 1 mg Glucagon (Glucagon For Inj 1 Mg Vial) 1 mg SQ UD PRN; Protocol PRN Reason: Hypoglycemia Protocol Stop: 10/16/22 22:42 Glucose (Glucose 10 Tab/Tube) 4 - 8 tab PO UD PRN; Protocol PRN Reason: Hypoglycemia Treatment Stop: 10/16/22 22:42 Glucose (Glucose 40% Gel 15 Gm Tube) 15 - 30 gm PO UD PRN; Protocol PRN Reason: Hypoglycemia Protocol Stop: 10/16/22 22:42 Hydromorphone HCl (Hydromorphone Inj 0.5 Mg/0.5 Ml Syr) 0.5 mg IV Q3H PRN PRN Reason: Pain Stop: 09/30/22 20:29 Promethazine HCl 12.5 mg/ (Sodium Chloride) 50.5 mls @ 202 mls/hr IV Q6H PRN PRN Reason: Nausea And Vomiting Stop: 10/16/22 20:29 Heparin Sodium/Dextrose (Heparin Sodium/Dextrose) 25,000 units in 500 mls @ 22 mls/hr IV .[id number] ALYSIA; Protocol Stop: 10/16/22 22:14 Last Titration: 09/17/22 14:00 Dose: 1,100 units/hr, 22 mls/hr Ertapenem 500 mg/ Syringe 5 mls @ 2 mls/min IV Q24H [facility] Stop: 09/27/22 22:59 Insulin Aspart (Insulin Aspart Per Unit Charge) 0 units SC ACHS [facility] Stop: 10/16/22 22:42 Last Admin: 09/17/22 20:00 Dose: 5 units Insulin Glargine (Lantus Per Unit Charge) 5 units SQ BID [facility] Stop: 10/16/22 22:42 Last Admin: 09/17/22 20:00 Dose: 5 units Lisinopril (Lisinopril 20 Mg Tab) 20 mg PO HS ALYSIA Stop: 10/17/22 20:59 Last Admin: 09/17/22 20:00 Dose: 20 mg Metoprolol Succinate (Metoprolol Succ 50mg Ext Rel Tab) 100 mg PO BID [facility]YSIA Stop: 10/17/22 08:59 Last Admin: 09/17/22 20:00 Dose: 100 mg Miscellaneous (Carbohydrates For Hypoglycemia ) 15 - 30 gm PO UD PRN PRN Reason: Hypoglycemia Protocol Stop: 10/16/22 22:42 Oxycodone HCl (Oxycodone Hcl Ir 5 Mg Tab (Immediate Release)) 5 - 10 mg PO QID PRN PRN Reason: Pain Stop: 09/30/22 20:29 Pantoprazole Sodium (Pantoprazole 40 Mg Tab) 40 mg PO QAM [facility] Stop: 10/17/22 08:59 Last Admin: 09/17/22 08:59 Dose: 40 mg
[2022-09-17] MEDS ORDERED: lisinopril 20 MG TAB PO SCH (21:00)
[2022-09-17] MEDS: ERTAPENEM SODIUM 500 MG in SYRINGE 0 ML IV SCH (23:16)
[2022-09-17] MEDS: HEPARIN SODIUM/DEXTROSE 25,000 UNITS/500 ML BAG IV SCH (23:16)
[2022-09-18] MEDS ORDERED: ALBUMIN 25% 25 GM/100 ML VIAL IV ONE (05:27)
[2022-09-18 07:40] LABS: Hematocrit (blood only) 36.2 % (42.0-52.0); Hemoglobin 11.4 g/dl (14.0-18.0); Mean Corpuscular Hemoglobin 28.1 pg (25.0-34.0); Mean Corpuscular Hgb Conc 31.5 g/dL (32.0-36.0); Mean Corpuscular Volume 89.4 fL (80.0-100.0); Platelet Count 101 K/uL (130-400); RDW Coefficient of Variation 15.1 % (11.5-14.5); RDW Standard Deviation 50.1 fL (36.4-46.3); Red Blood Count 4.05 M/uL (4.70-6.10); White Blood Count 7.39 K/ul (4.8-10.8)
[2022-09-18 07:59] LABS: Albumin Globulin Ratio 1.1 (0.9-2); Albumin Level 3.4 gm/dl (3.4-5.0); BUN Creatinine Ratio 13.7 (10-20); Bilirubin,Total 0.9 mg/dl (0.2-1.0); Calcium 8.9 mg/dl (8.6-10.3); Creatinine Clr Calc Pharmacy 18.7 ml/min; Est GFR (African American) 14.4 ml/min; Est GFR (Non-African American) 12.4 ml/min; Magnesium 2.1 mg/dl (1.7-2.4); Phosphorus 4.5 mg/dl (2.5-4.9); Potassium 3.7 mmol/L (3.5-5.1); Total Protein 6.4 gm/dl (6.0-8.3)
[2022-09-18 08:20] LABS: Partial Thromboplastin Ratio 1.7
[2022-09-18 08:22] LABS: Partial Thromboplastin Time 49.2 Seconds (21.0-31.0)
[2022-09-18] MEDS: PANTOprazole 40 MG TAB PO SCH (09:12)
[2022-09-18] MEDS: METOPROLOL SUCC 50MG EXT REL TAB PO SCH ×2 (09:12→21:18)
[2022-09-18] MEDS: allopurinoL 100 MG TAB PO SCH (09:12)
[2022-09-18] MEDS: ASPIRIN 81 MG ECTAB PO SCH (09:12)
[2022-09-18] MEDS: AMIODARONE 200 MG TAB PO SCH ×2 (09:13→21:19)
[2022-09-18] MEDS: FOLIC ACID 1 MG TAB PO SCH (09:13)
[2022-09-18] MEDS: INSULIN ASPART PER UNIT CHARGE SC SCH ×4 (09:13→21:19)
[2022-09-18] MEDS: LANTUS PER UNIT CHARGE SQ SCH ×2 (09:14→21:19)
[2022-09-18] MEDS ORDERED: LACTATED RINGER'S 1,000 ML IV SCH (09:45)
--- NOTE | 2022-09-18 12:23 | Consultation Report ---
NEPHROLOGY CONSULTATION NOTE REASON FOR CONSULTATION: Acute renal failure on background CKD. HISTORY OF PRESENT ILLNESS: The patient is a 67-year-old male with baseline CKD IV, with a baseline creatinine in the 3s and low 4s. He was admitted 2 days ago when he presented to the hospital [facility] of abdominal pain, more so on the right upper abdomen. There was some shortness of breath and bloo d pressure was high. The patient was last admitted to [facility] in November 2021 fo r symptomatic anemia and gastrointestinal bleed as well as critical aortic stenosis. The patient was then transferred to [facility] for TAVR. The patient does have significant comorbidit ies including nonischemic cardiomyopathy with an EF of 35%, status post ICD, severe aortic stenosis, status post TAVR, chronic bundle branch block, CKD IV, history of embolic CVA, as well as atrial fibr illation, on Eliquis, COPD, sleep apnea, on CPAP, as well as pulmonary hypertension and peripheral va scular disease with type 2 diabetes requiring insulin. Since being admitted, torsemide and lisinopri l has been held. He is currently getting gentle hydration at 80 mL per hour. He has not been allowe d to eat as he is being conservatively managed for acute cholecystitis. Surgery has seen the patient and is not recommending surgery at this time. His vital signs seem reasonable and he is no longer h ypertensive. There was even some low blood pressure reading earlier today, but that was more of an i solated event. He feels his breathing is about stable. CT abdomen and pelvis was done 2 days ago an d kidneys did not have any new finding. PAST MEDICAL AND SURGICAL HISTORY: As detailed in HPI. FAMILY HISTORY: Negative for renal disease or dialysis. SOCIAL HISTORY: Never smoked. He is , lives with his spouse. 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 He uses CPAP at home. REVIEW OF SYSTEMS: Noted for upper abdominal pain, some increased shortness of breath, but otherwise unremarkable. PHYSICAL EXAMINATION: GENERAL: Elderly white male who is obese. He is pleasant. He is not in any respiratory distress at the time of my exam, he was wearing a CPAP. HEENT: Mucous membrane is moist. NECK: Supple. No jugular venous distention. CHEST: Bilateral decreased breath sounds, occasional crackles. CARDIOVASCULAR: S1 and S2 regular. Soft systolic murmur heard. ABDOMEN: Soft, nontender. EXTREMITIES: Show trace edema. NEUROLOGIC: Awake, alert and oriented. Normal speech. Able to give detailed account of his medical problem. VITAL SIGNS: Blood pressure 134/80, pulse rate 62, temperature 36.6, 94% on room air. LABORATORY TEST: At baseline, his creatinine is in the high 3s and low 4s. On admission, his creati nine was at about baseline at 3.9, this morning creatinine is up a little at 4.53. ASSESSMENT AND PLAN: A 67-year-old male with chronic kidney disease stage IV, baseline creatinine in the high 3s, now admitted with acute cholecystitis. I have been consulted for acute kidney injury o n chronic kidney disease IV. Given that the patient has acute cholecystitis and is not really allowe d to eat, it is not unexpected to have slight rise in the creatinine. It is reasonable to hold the l isinopril as well as torsemide for the time being. It is reasonable to give about 1 liter of Ringer' s lactate today to allow for adequate hydration, especially given limited oral intake. However, I do not really feel this patient needs aggressive hydration and I would not give fluid more than tomorro w morning. Do renally adjust the dose of ertapenem and avoid nephrotoxic agent as much as possible. His vital signs at this point seem reasonable. Continue daily labs. Continue input/output charting . Nephrology will continue to follow the patient. Thank you very much for the consult. Job ID: [id number]
--- NOTE | 2022-09-18 12:52 | Surgery Progress Note ---
Date of Service September 18, 2022 Assessment & Plan (1) Presence of combination internal cardiac defibrillator (ICD) and pacemaker: (2) Cholelithiasis: (3) Hypertension: (4) Nonischemic cardiomyopathy: Plan 67-year-old gentleman with extensive past medical history including extensive cardiac history presents with what appears to be developing acute cholecystitis. He has been seen in [place] for potential cholecystectomy following his recovery from his cardiac surgery. 09/18/2022 avss, no leukocytosis no abdominal pain, tolerating clear liquids Plan: Seems to be improving on conservative measures Advance to low fat/soft diet continue abx, can trasition to oral abx if tolerates advancement of diet should do 14 day total course of abx Needs to follow-up with [place] for potential cholecystectomy as outpatient Our services signing off, please call with questions/concerns Dr. Burgos has seen and examined pt, agrees with above. Admission and Anticipated Discharge Date Admission Date: September 16, 2022 Subjective feeling good tolerating clear liquids no abdominal pain no n,v no fevers or chills Physical Exam Constitutional: WD/WN, vitals as above cooperative and comfortable; no acute distress and not ill appearing Respiratory: normal respiratory effort; no respiratory distress Gastrointestinal (Abdomen): Inspection/Auscultation: abdomen normal to inspection; abdomen not distended Percussion/Palpation: abdomen soft; abdomen nontender, no guarding, abdomen not rigid and abdomen not firm Skin: no rashes, warm and dry no jaundice Psychiatric: Orientation: alert and oriented x 3 Results & Data Vital Signs (Past 12 Hours) Vital Signs Temp Pulse Pulse Resp BP Pulse Ox O2 Del Method 09/18/22 12:17 60 09/18/22 11:25 36.5 C 67 18 124/70 93 Room Air 09/18/22 07:40 36.6 C 62 18 134/80 94 Room Air 09/18/22 04:28 87/54 L 09/18/22 04:30 107/64 09/18/22 03:30 37.0 C 70 16 134/80 91 CPAP Laboratory Results 09/18/22 09/18/22 09/18/22 Range/Units 11:27 07:32 06:18 WBC (4.8-10.8) K/ul RBC (4.70-6.10) M/uL Hgb (14.0-18.0) g/dl Hct (42.0-52.0) % MCV (80.0-100.0) fL MCH (25.0-34.0) pg MCHC (32.0-36.0) g/dL RDW Std Deviation (36.4-46.3) fL RDW Coeff of Joey (11.5-14.5) % Plt Count (130-400) K/uL MPV (9.4-12.4) fL APTT (21.0-31.0) Seconds PTT Ratio Sodium 140 (136-145) mmol/L Potassium 3.7 (3.5-5.1) mmol/L Chloride 100 (98-107) mmol/L Carbon Dioxide 31 (21-32) mmol/L Anion Gap 9 (3-11) BUN 62 H (6-23) mg/dl Creatinine 4.53 H* D (0.6-1.4) mg/dl Est Cr Clr Drug Dosing 18.7 ml/min Est GFR ( Amer) 14.4 ml/min Est GFR (Non-Af Amer) 12.4 ml/min BUN/Creatinine Ratio 13.7 (10-20) Glucose 58 L (70-99(Fasting)) mg/dl POC Glucose 142 H 73 (70-99) mg/dl Calcium 8.9 (8.6-10.3) mg/dl Phosphorus 4.5 (2.5-4.9) mg/dl Magnesium 2.1 (1.7-2.4) mg/dl Total Bilirubin 0.9 (0.2-1.0) mg/dl AST 18 (13-39) U/L ALT 22 (7-52) U/L Alkaline Phosphatase 115 H (34-104) U/L Total Protein 6.4 (6.0-8.3) gm/dl Albumin 3.4 (3.4-5.0) gm/dl Globulin 3.0 (2.5-4.0) gm/dl Albumin/Globulin Ratio 1.1 (0.9-2) 09/18/22 09/18/22 09/17/22 Range/Units 06:18 06:18 19:51 WBC 7.39 (4.8-10.8) K/ul RBC 4.05 L (4.70-6.10) M/uL Hgb 11.4 L (14.0-18.0) g/dl Hct 36.2 L (42.0-52.0) % MCV 89.4 (80.0-100.0) fL MCH 28.1 (25.0-34.0) pg MCHC 31.5 L (32.0-36.0) g/dL RDW Std Deviation 50.1 H (36.4-46.3) fL RDW Coeff of Joey 15.1 H (11.5-14.5) % Plt Count 101 L (130-400) K/uL MPV 11.0 (9.4-12.4) fL APTT 49.2 H* (21.0-31.0) Seconds PTT Ratio 1.7 Sodium (136-145) mmol/L Potassium (3.5-5.1) mmol/L Chloride (98-107) mmol/L Carbon Dioxide (21-32) mmol/L Anion Gap (3-11) BUN (6-23) mg/dl Creatinine (0.6-1.4) mg/dl Est Cr Clr Drug Dosing ml/min Est GFR ( Amer) ml/min Est GFR (Non-Af Amer) ml/min BUN/Creatinine Ratio (10-20) Glucose (70-99(Fasting)) mg/dl POC Glucose 257 H (70-99) mg/dl Calcium (8.6-10.3) mg/dl Phosphorus (2.5-4.9) mg/dl Magnesium (1.7-2.4) mg/dl Total Bilirubin (0.2-1.0) mg/dl AST (13-39) U/L ALT (7-52) U/L Alkaline Phosphatase (34-104) U/L Total Protein (6.0-8.3) gm/dl Albumin (3.4-5.0) gm/dl Globulin (2.5-4.0) gm/dl Albumin/Globulin Ratio (0.9-2) 09/17/22 09/17/22 Range/Units 16:33 13:47 WBC (4.8-10.8) K/ul RBC (4.70-6.10) M/uL Hgb (14.0-18.0) g/dl Hct (42.0-52.0) % MCV (80.0-100.0) fL MCH (25.0-34.0) pg MCHC (32.0-36.0) g/dL RDW Std Deviation (36.4-46.3) fL RDW Coeff of Joey (11.5-14.5) % Plt Count (130-400) K/uL MPV (9.4-12.4) fL APTT 43.7 H* (21.0-31.0) Seconds PTT Ratio 1.5 Sodium (136-145) mmol/L Potassium (3.5-5.1) mmol/L Chloride (98-107) mmol/L Carbon Dioxide (21-32) mmol/L Anion Gap (3-11) BUN (6-23) mg/dl Creatinine (0.6-1.4) mg/dl Est Cr Clr Drug Dosing ml/min Est GFR ( Amer) ml/min Est GFR (Non-Af Amer) ml/min BUN/Creatinine Ratio (10-20) Glucose (70-99(Fasting)) mg/dl POC Glucose 141 H (70-99) mg/dl Calcium (8.6-10.3) mg/dl Phosphorus (2.5-4.9) mg/dl Magnesium (1.7-2.4) mg/dl Total Bilirubin (0.2-1.0) mg/dl AST (13-39) U/L ALT (7-52) U/L Alkaline Phosphatase (34-104) U/L Total Protein (6.0-8.3) gm/dl Albumin (3.4-5.0) gm/dl Globulin (2.5-4.0) gm/dl Albumin/Globulin Ratio (0.9-2) (3) Hypertension Hypertension type: unspecified Qualified Code(s): I10 - Essential (primary) hypertension
--- NOTE | 2022-09-18 13:05 | Hospitalist Progress Note ---
Date of Service September 18, 2022 Assessment & Plan (1) Hypertensive crisis: Plan Right upper quadrant ultrasound 1. Cholelithiasis within a distended and abnormal appearing gallbladder. Acute cholecystitis is not excluded. Surgical consultation is advised. A nuclear hepatobiliary scan could be considered for confirmation. 2. No intrahepatic biliary ductal dilatation is seen. The common bile duct is dilated measuring 1.[address] abdomen pelvis 1. Normal appendix. 2. Mild pneumobilia, correlate for any history of biliary intervention.Cholelithiasis. 3. Diverticulosis, without acute diverticulitis. No small bowel obstruction. No free intraperitoneal air. Acute cholecystitis/symptomatic cholelithiasis-imaging studies as above. Seen by surgery who did not recommend surgical intervention at this time but recommended trial of antibiotics and clear liquid diet. He does seem to be improving with current management which we will continue. If he requires surgical intervention, he will most likely have to be transferred to tertiary center due to his extensive cardiac history. He has been seen in [place] for potential cholecystectomy following his recovery from his cardiac surgery. - Advancing diet to low fat/soft diet per surgery - Will switch to po if tolerates diet advancement, total of 14 days of ABx course - Needs follow up with [facility] for OP cholecystectomy PAM on CKD4-creatinine at baseline of around 4, now up to 4.5. Suspected prerenal due to limited oral intake as evidenced by dizziness and hypotension. S/p iv albumin x1. Will give 1 L of LR today. Hold lisinopril and torsemide. Avoid nephrotoxic medications. Monitor creatinine. nephrology following Essential hypertension- BP stable, continue Toprol, holding lisinopril. Given his CKD4, alternative antihypertensive might be better than lisinopril- will allison ck with nephro. Troponin elevation secondary to above in the setting of kidney dysfunction Chronic systolic heart failure secondary to nonischemic cardiomyopathy status post ICD- patient euvolemic, no exacerbation-no chest pain or shortness of breath History of aortic stenosis status post bioprosthetic AVR H/o embolic CVA History of atrial fibrillation on on Eliquis-continue home amiodarone, Toprol. Eliquis on hold and now on heparin drip ARPIT on CPAP-continue CPAP. DM 2 on insulin-A1c 7.1. Continue Lantus, sliding scale insulin, adjust as indicated. DVT prophylaxis- currently on heparin drip. We will switch to Eliquis if he continues to improve and does not require surgical consideration. Disposition-continue current level of care with IV antibiotics and IVF Admission and Anticipated Discharge Date Admission Date: September 16, 2022 Subjective Patient was seen and examined at bedside. He continues to feel better. Abdominal pain is still there but improved. Tolerating clears without issues. No nausea or vomiting. No fever. He did have an episode of dizziness early this morning when ambulating to the bathroom and had to be lowered to the floor. He was hypotensive at that time and improved upon returning to bed and received a dose of IV albumin this morning. t Review of Systems Review of Systems: All systems reviewed & are unremarkable except as noted in Subjective Physical Exam Physical Exam: General: Lying comfortably with nasal CPAP, not in distress HEENT: EOMI, BRENDON, MMM Chest: Clear breath sounds bilaterally, no wheezes or crackles CVS: Regular rate and rhythm, normal heart sounds, no murmur Abdomen: Soft, mild RUQ tenderness, not distended, normal bowel sounds Neuro: Awake, alert, oriented, conversing well, non focal Extremities: No cyanosis, clubbing or edema Results & Data Results & Data Vital Signs (Past 12 Hours) Vital Signs Temp Pulse Pulse Resp BP Pulse Ox O2 Del Method 09/18/22 12:17 60 09/18/22 11:25 36.5 C 67 18 124/70 93 Room Air 09/18/22 07:40 36.6 C 62 18 134/80 94 Room Air 09/18/22 04:28 87/54 L 09/18/22 04:30 107/64 09/18/22 03:30 37.0 C 70 16 134/80 91 CPAP Laboratory Results Short CBC 09/18/22 Range/Units 06:18 WBC 7.39 (4.8-10.8) K/ul Hgb 11.4 L (14.0-18.0) g/dl Hct 36.2 L (42.0-52.0) % Plt Count 101 L (130-400) K/uL BMP 09/18/22 06:18 Sodium 140 Potassium 3.7 Chloride 100 Carbon Dioxide 31 BUN 62 H Creatinine 4.53 H* D Glucose 58 L Calcium 8.9 Liver Function 09/18/22 Range/Units 06:18 Total Bilirubin 0.9 (0.2-1.0) mg/dl AST 18 (13-39) U/L ALT 22 (7-52) U/L Alkaline Phosphatase 115 H (34-104) U/L Albumin 3.4 (3.4-5.0) gm/dl Medications Administered Current Inpatient Medications Acetaminophen (Acetaminophen 325 Mg Tab) 650 mg PO Q4H PRN PRN Reason: Pain or Fever Stop: 10/16/22 22:42 Allopurinol (Allopurinol 100 Mg Tab) 100 mg PO QAM [facility] Stop: 10/17/22 08:59 Last Admin: 09/18/22 09:12 Dose: 100 mg Alprazolam (Alprazolam 0.5 Mg Tablet) 0.5 mg PO HS [facility] Stop: 10/16/22 22:42 Last Admin: 09/17/22 19:59 Dose: 0.5 mg Amiodarone HCl (Amiodarone 200 Mg Tab) 200 mg PO AMHS [facility] Stop: 10/16/22 22:42 Last Admin: 09/18/22 09:13 Dose: 200 mg Aspirin (Aspirin 81 Mg Ectab) 81 mg PO QAM [facility] Stop: 10/17/22 08:59 Last Admin: 09/18/22 09:12 Dose: 81 mg Atorvastatin Calcium (Atorvastatin 40 Mg Tab) 80 mg PO QPM [facility] Stop: 10/16/22 22:42 Last Admin: 09/17/22 19:59 Dose: 80 mg Dextrose (Dextrose 50% 50 Ml Syringe) 25 - 50 ml IV UD PRN; Protocol PRN Reason: Hypoglycemia Protocol Stop: 10/16/22 22:42 Folic Acid (Folic Acid 1 Mg Tab) 1 mg PO QAM [facility] Stop: 10/17/22 08:59 Last Admin: 09/18/22 09:13 Dose: 1 mg Glucagon (Glucagon For Inj 1 Mg Vial) 1 mg SQ UD PRN; Protocol PRN Reason: Hypoglycemia Protocol Stop: 10/16/22 22:42 Glucose (Glucose 10 Tab/Tube) 4 - 8 tab PO UD PRN; Protocol PRN Reason: Hypoglycemia Treatment Stop: 10/16/22 22:42 Glucose (Glucose 40% Gel 15 Gm Tube) 15 - 30 gm PO UD PRN; Protocol PRN Reason: Hypoglycemia Protocol Stop: 10/16/22 22:42 Hydromorphone HCl (Hydromorphone Inj 0.5 Mg/0.5 Ml Syr) 0.5 mg IV Q3H PRN PRN Reason: Pain Stop: 09/30/22 20:29 Promethazine HCl 12.5 mg/ (Sodium Chloride) 50.5 mls @ 202 mls/hr IV Q6H PRN PRN Reason: Nausea And Vomiting Stop: 10/16/22 20:29 Heparin Sodium/Dextrose (Heparin Sodium/Dextrose) 25,000 units in 500 mls @ 22 mls/hr IV .[id number] [facility]; Protocol Stop: 10/16/22 22:14 Last Admin: 09/17/22 23:16 Dose: 1,100 units/hr, 22 mls/hr Ertapenem 500 mg/ Syringe 5 mls @ 2 mls/min IV Q24H [facility] Stop: 09/27/22 22:59 Last Admin: 09/17/22 23:16 Dose: 2 mls/min Lactated Ringer's (Lr) 1,000 mls @ 80 mls/hr IV .[id number] [facility] Stop: 09/18/22 21:44 Last Admin: 09/18/22 09:54 Dose: 80 mls/hr Insulin Aspart (Insulin Aspart Per Unit Charge) 0 units SC ACHS [facility] Stop: 10/16/22 22:42 Last Admin: 09/18/22 12:56 Dose: Not Given Insulin Glargine (Lantus Per Unit Charge) 5 units SQ BID [facility] Stop: 10/16/22 22:42 Last Admin: 09/18/22 09:14 Dose: Not Given Lisinopril (Lisinopril 20 Mg Tab) 20 mg PO HS [facility] Stop: 10/17/22 20:59 Last Admin: 09/17/22 20:00 Dose: 20 mg Metoprolol Succinate (Metoprolol Succ 50mg Ext Rel Tab) 100 mg PO BID [facility] Stop: 10/17/22 08:59 Last Admin: 09/18/22 09:12 Dose: 100 mg Miscellaneous (Carbohydrates For Hypoglycemia ) 15 - 30 gm PO UD PRN PRN Reason: Hypoglycemia Protocol Stop: 10/16/22 22:42 Oxycodone HCl (Oxycodone Hcl Ir 5 Mg Tab (Immediate Release)) 5 - 10 mg PO QID PRN PRN Reason: Pain Stop: 09/30/22 20:29 Pantoprazole Sodium (Pantoprazole 40 Mg Tab) 40 mg PO QAM [facility] Stop: 10/17/22 08:59 Last Admin: 09/18/22 09:12 Dose: 40 mg
[2022-09-18] MEDS: ALPRAZolam 0.5 MG TABLET PO SCH (21:18)
[2022-09-18] MEDS: HEPARIN SODIUM/DEXTROSE 25,000 UNITS/500 ML BAG IV SCH (21:18)
[2022-09-18] MEDS: ATORVASTATIN 40 MG TAB PO SCH (21:19)
[2022-09-18] MEDS: ERTAPENEM SODIUM 500 MG in SYRINGE 0 ML IV SCH (23:13)
[2022-09-19 04:54] LABS: Hematocrit (blood only) 33.4 % (42.0-52.0); Hemoglobin 10.8 g/dl (14.0-18.0); Mean Corpuscular Hemoglobin 28.6 pg (25.0-34.0); Mean Corpuscular Hgb Conc 32.3 g/dL (32.0-36.0); Mean Corpuscular Volume 88.4 fL (80.0-100.0); Mean Platelet Volume 10.8 fL (9.4-12.4); Platelet Count 96 K/uL (130-400); RDW Coefficient of Variation 15.1 % (11.5-14.5); RDW Standard Deviation 48.9 fL (36.4-46.3); Red Blood Count 3.78 M/uL (4.70-6.10); White Blood Count 5.31 K/ul (4.8-10.8)
[2022-09-19 05:03] LABS: BUN Creatinine Ratio 14.9 (10-20); Calcium 9.1 mg/dl (8.6-10.3); Creatinine Clr Calc Pharmacy 19.7 ml/min; Est GFR (African American) 15.3 ml/min; Est GFR (Non-African American) 13.2 ml/min; Magnesium 2.2 mg/dl (1.7-2.4); Phosphorus 4.6 mg/dl (2.5-4.9); Potassium 3.7 mmol/L (3.5-5.1)
[2022-09-19 05:28] LABS: Partial Thromboplastin Ratio 1.8
[2022-09-19 06:06] LABS: Partial Thromboplastin Time 49.5 Seconds (21.0-31.0)
[2022-09-19] MEDS: FOLIC ACID 1 MG TAB PO SCH (08:12)
[2022-09-19] MEDS: AMIODARONE 200 MG TAB PO SCH ×2 (08:12→20:17)
[2022-09-19] MEDS: allopurinoL 100 MG TAB PO SCH (08:12)
[2022-09-19] MEDS: PANTOprazole 40 MG TAB PO SCH (08:12)
[2022-09-19] MEDS: ASPIRIN 81 MG ECTAB PO SCH (08:12)
[2022-09-19] MEDS: LANTUS PER UNIT CHARGE SQ SCH ×2 (08:19→21:44)
[2022-09-19] MEDS: INSULIN ASPART PER UNIT CHARGE SC SCH ×4 (08:20→21:43)
[2022-09-19] MEDS: METOPROLOL SUCC 50MG EXT REL TAB PO SCH ×2 (08:34→20:17)
[2022-09-19] MEDS: APIXABAN 2.5 MG TAB PO SCH ×2 (11:03→20:16)
--- NOTE | 2022-09-19 11:25 | Hospitalist Progress Note ---
Date of Service September 19, 2022 Assessment & Plan (1) Hypertensive crisis: Plan Right upper quadrant ultrasound 1. Cholelithiasis within a distended and abnormal appearing gallbladder. Acute cholecystitis is not excluded. Surgical consultation is advised. A nuclear hepatobiliary scan could be considered for confirmation. 2. No intrahepatic biliary ductal dilatation is seen. The common bile duct is dilated measuring 1.[address] abdomen pelvis 1. Normal appendix. 2. Mild pneumobilia, correlate for any history of biliary intervention.Cholelithiasis. 3. Diverticulosis, without acute diverticulitis. No small bowel obstruction. No free intraperitoneal air. Acute cholecystitis/symptomatic cholelithiasis-imaging studies as above. Seen by surgery who did not recommend surgical intervention at this time but recommended trial of antibiotics and clear liquid diet. He does seem to be improving with current management which we will continue. If he requires surgical intervention, he will most likely have to be transferred to tertiary center due to his extensive cardiac history. He has been seen in [place] for potential cholecystectomy following his recovery from his cardiac surgery. - Advancing diet to low fat/soft diet per surgery - Will switch to po if tolerates diet advancement, total of 14 days of ABx course - Needs follow up with [facility] for OP cholecystectomy PAM on CKD4-creatinine at baseline of around 4-> 4.5->4.3. S/p iv albumin and LR. Nephro following. Continue to hold lisinopril and torsemide. Avoid nephrotoxic medications. Monitor creatinine. Essential hypertension- BP stable, continue Toprol, holding lisinopril. Given his CKD4, alternative antihypertensive might be better than lisinopril Troponin elevation secondary to above in the setting of kidney dysfunction Chronic systolic heart failure secondary to nonischemic cardiomyopathy status post ICD- patient euvolemic, no exacerbation-no chest pain or shortness of breath History of aortic stenosis status post bioprosthetic AVR H/o embolic CVA History of atrial fibrillation on on Eliquis-continue home amiodarone, Toprol. Will switch heparin drip back to eliquis ARPIT on CPAP-continue CPAP. DM 2 on insulin-A1c 7.1. Continue Lantus, sliding scale insulin, adjust as indicated. DVT prophylaxis- Eliquis. Disposition- Anticipate discharge tomorrow if continues to improve and remain stable clinically and biochemically Admission and Anticipated Discharge Date Admission Date: September 16, 2022 Subjective Patient was seen and examined at bedside. He continues to improve. Pain is minimal now. No N/V. Tolerated regular food intake without issues. No more lightheadedness or dizziness. No CP or SOB. Review of Systems Review of Systems: All systems reviewed & are unremarkable except as noted in Subjective Physical Exam Physical Exam: General: Sitting in chair watching movie, not in distress, on room air HEENT: EOMI, BRENDON, MMM Chest: Clear breath sounds bilaterally, no wheezes or crackles CVS: Regular rate and rhythm, normal heart sounds, no murmur Abdomen: Soft, non tender, not distended, normal bowel sounds Neuro: Awake, alert, oriented, conversing well, non focal Extremities: No cyanosis, clubbing or edema Results & Data Results & Data Vital Signs (Past 12 Hours) Vital Signs Temp Pulse Pulse Resp BP BP Pulse Ox 09/19/22 10:55 36.7 C 63 19 146/91 H 94 09/19/22 07:16 36.4 C L 68 18 150/98 H 94 09/19/22 03:38 36.4 C L 71 20 132/89 95 09/18/22 23:27 60 O2 Del Method 09/19/22 10:55 Room Air 09/19/22 07:16 Room Air 09/19/22 03:38 CPAP 09/18/22 23:27 Laboratory Results Short CBC 09/19/22 Range/Units 04:14 WBC 5.31 (4.8-10.8) K/ul Hgb 10.8 L (14.0-18.0) g/dl Hct 33.4 L (42.0-52.0) % Plt Count 96 L (130-400) K/uL BMP 09/19/22 04:14 Sodium 139 Potassium 3.7 Chloride 102 Carbon Dioxide 28 BUN 64 H Creatinine 4.30 H Glucose 115 H Calcium 9.1 Medications Administered Current Inpatient Medications Acetaminophen (Acetaminophen 325 Mg Tab) 650 mg PO Q4H PRN PRN Reason: Pain or Fever Stop: 10/16/22 22:42 Allopurinol (Allopurinol 100 Mg Tab) 100 mg PO QAM [facility] Stop: 10/17/22 08:59 Last Admin: 09/19/22 08:12 Dose: 100 mg Alprazolam (Alprazolam 0.5 Mg Tablet) 0.5 mg PO HS [facility] Stop: 10/16/22 22:42 Last Admin: 09/18/22 21:18 Dose: 0.5 mg Amiodarone HCl (Amiodarone 200 Mg Tab) 200 mg PO AMHS [facility] Stop: 10/16/22 22:42 Last Admin: 09/19/22 08:12 Dose: 200 mg Apixaban (Apixaban 2.5 Mg Tab) 2.5 mg PO BID [facility] Stop: 10/19/22 09:29 Last Admin: 09/19/22 11:03 Dose: 2.5 mg Aspirin (Aspirin 81 Mg Ectab) 81 mg PO QAM [facility] Stop: 10/17/22 08:59 Last Admin: 09/19/22 08:12 Dose: 81 mg Atorvastatin Calcium (Atorvastatin 40 Mg Tab) 80 mg PO QPM [facility] Stop: 10/16/22 22:42 Last Admin: 09/18/22 21:19 Dose: 80 mg Dextrose (Dextrose 50% 50 Ml Syringe) 25 - 50 ml IV UD PRN; Protocol PRN Reason: Hypoglycemia Protocol Stop: 10/16/22 22:42 Folic Acid (Folic Acid 1 Mg Tab) 1 mg PO QAM [facility] Stop: 10/17/22 08:59 Last Admin: 09/19/22 08:12 Dose: 1 mg Glucagon (Glucagon For Inj 1 Mg Vial) 1 mg SQ UD PRN; Protocol PRN Reason: Hypoglycemia Protocol Stop: 10/16/22 22:42 Glucose (Glucose 10 Tab/Tube) 4 - 8 tab PO UD PRN; Protocol PRN Reason: Hypoglycemia Treatment Stop: 10/16/22 22:42 Glucose (Glucose 40% Gel 15 Gm Tube) 15 - 30 gm PO UD PRN; Protocol PRN Reason: Hypoglycemia Protocol Stop: 10/16/22 22:42 Hydromorphone HCl (Hydromorphone Inj 0.5 Mg/0.5 Ml Syr) 0.5 mg IV Q3H PRN PRN Reason: Pain Stop: 09/30/22 20:29 Promethazine HCl 12.5 mg/ (Sodium Chloride) 50.5 mls @ 202 mls/hr IV Q6H PRN PRN Reason: Nausea And Vomiting Stop: 10/16/22 20:29 Ertapenem 500 mg/ Syringe 5 mls @ 2 mls/min IV Q24H [facility] Stop: 09/27/22 22:59 Last Admin: 09/18/22 23:13 Dose: 2 mls/min Insulin Aspart (Insulin Aspart Per Unit Charge) 0 units SC ACHS [facility] Stop: 10/16/22 22:42 Last Admin: 09/19/22 08:20 Dose: 2 units Insulin Glargine (Lantus Per Unit Charge) 5 units SQ BID [facility] Stop: 10/16/22 22:42 Last Admin: 09/19/22 08:19 Dose: 5 units Lisinopril (Lisinopril 20 Mg Tab) 20 mg PO HS [facility] Stop: 10/17/22 20:59 Last Admin: 09/17/22 20:00 Dose: 20 mg Metoprolol Succinate (Metoprolol Succ 50mg Ext Rel Tab) 100 mg PO BID [facility] Stop: 10/17/22 08:59 Last Admin: 09/19/22 08:34 Dose: 100 mg Miscellaneous (Carbohydrates For Hypoglycemia ) 15 - 30 gm PO UD PRN PRN Reason: Hypoglycemia Protocol Stop: 10/16/22 22:42 Oxycodone HCl (Oxycodone Hcl Ir 5 Mg Tab (Immediate Release)) 5 - 10 mg PO QID PRN PRN Reason: Pain Stop: 09/30/22 20:29 Pantoprazole Sodium (Pantoprazole 40 Mg Tab) 40 mg PO QAM [facility] Stop: 10/17/22 08:59 Last Admin: 09/19/22 08:12 Dose: 40 mg
[2022-09-19] MEDS: ATORVASTATIN 40 MG TAB PO SCH (20:16)
[2022-09-19] MEDS: ALPRAZolam 0.5 MG TABLET PO SCH (20:38)
[2022-09-19] MEDS: ERTAPENEM SODIUM 500 MG in SYRINGE 0 ML IV SCH (23:19)
[2022-09-20 06:23] LABS: Babesia microti DNA Not Detected (Not Detected)
[2022-09-20 06:44] LABS: Hematocrit (blood only) 34.6 % (42.0-52.0); Hemoglobin 11.5 g/dl (14.0-18.0); Mean Corpuscular Hemoglobin 28.8 pg (25.0-34.0); Mean Corpuscular Hgb Conc 33.2 g/dL (32.0-36.0); Mean Corpuscular Volume 86.7 fL (80.0-100.0); Mean Platelet Volume 10.4 fL (9.4-12.4); Platelet Count 102 K/uL (130-400); RDW Coefficient of Variation 15.1 % (11.5-14.5); Red Blood Count 3.99 M/uL (4.70-6.10); White Blood Count 5.25 K/ul (4.8-10.8)
[2022-09-20 06:56] LABS: BUN Creatinine Ratio 15.9 (10-20); Calcium 9.1 mg/dl (8.6-10.3); Creatinine Clr Calc Pharmacy 20.6 ml/min; Est GFR (Non-African American) 13.8 ml/min; Potassium 3.7 mmol/L (3.5-5.1)
[2022-09-20 07:38] LABS: Partial Thromboplastin Ratio 1.1; Partial Thromboplastin Time 30.2 Seconds (21.0-31.0)
[2022-09-20] MEDS: ASPIRIN 81 MG ECTAB PO SCH (09:49)
[2022-09-20] MEDS: APIXABAN 2.5 MG TAB PO SCH (09:49)
[2022-09-20] MEDS: PANTOprazole 40 MG TAB PO SCH (09:49)
[2022-09-20] MEDS: FOLIC ACID 1 MG TAB PO SCH (09:49)
[2022-09-20] MEDS: AMIODARONE 200 MG TAB PO SCH (09:49)
[2022-09-20] MEDS: METOPROLOL SUCC 50MG EXT REL TAB PO SCH (09:49)
[2022-09-20] MEDS: allopurinoL 100 MG TAB PO SCH (09:49)
[2022-09-20] MEDS: INSULIN ASPART PER UNIT CHARGE SC SCH ×2 (09:51→11:49)
[2022-09-20] MEDS: LANTUS PER UNIT CHARGE SQ SCH (09:55)
[2022-09-20] MEDS ORDERED: metroNIDAZOLE 500 MG TAB PO SCH (10:30)
--- NOTE | 2022-09-20 10:46 | Discharge Summary ---
Date of Service September 20, 2022 Admission HPI Per Admitting Provider History obtained from patient, , and records. Medical history significant for chronic systolic heart failure secondary to nonischemic cardiomyopathy (EF of 35%, TTE 2021) status post ICD, status post bioprosthetic AVR, chronic LBBB, hx nonocclusive CAD, hx VT, PVD as per records, hx embolic CVA, A. fib on on Eliquis, HTN, COPD as per records, ARPIT on CPAP, pulmonary hypertension as per records, DM 2 insulin requiring, CRI (baseline creatinine of 3-4), history of choledocholithiasis/gallstone pancreatitis, chronic anemia (baseline hemoglobin of 10-11), chronic thrombocytopenia. Last confinement November 2021 for symptomatic anemia and GI bleed, critical . Patient transferred to [facility] [place] for TAVR. Few days ago, patient noted upper abdominal discomfort going to the chest reminiscent of gallstone attacks. Some shortness of breath. Weight up by 2 pounds as per . No fever, no chills. Patient brought to the ER for evaluation. IV cefoxitin administered for possible cholecystitis. 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 Admission Exam Per Admitting Provider GENERAL: obese, pleasant, no respiratory distress SKIN: Pallor, warm HEENT: Alopecia, pale palpebral conjunctivae, no ptosis, dry buccal mucosa NECK : Supple, short neck, no tenderness CHEST : Decreased breath sounds, no tenderness HEART : RRR, no obvious murmurs ABDOMEN: Some distention, epigastric tenderness EXTREMITIES : Minimal LE swelling, no LE tenderness, no other conspicuous deformities noted NEUROLOGIC : Coherent, no facial asymmetry, gait and stance not assessed Principal Diagnosis Acute cholecystitis, CKD4, DM-2 on insulin Discharge Exam General: Sitting in chair watching movie, not in distress, on room air HEENT: EOMI, BRENDON, MMM Chest: Clear breath sounds bilaterally, no wheezes or crackles CVS: Regular rate and rhythm, normal heart sounds, no murmur Abdomen: Soft, non tender, not distended, normal bowel sounds Neuro: Awake, alert, oriented, conversing well, non focal Extremities: No cyanosis, clubbing or edema Discharge Data Allergies Allergy/AdvReac Type Severity Reaction Status Date / Time prednisone AdvReac Severe BSG'S OVER Verified 09/16/22 16:54 400-CONFUSION, DISORIENTED Consultations 09/16/22 18:48 ED Decision to Admit Stat 09/16/22 22:43 Consult General Surgery Routine 09/18/22 08:20 Consult Nephrology Routine Ordered Studies 09/16/22 16:12 US gallbladder Stat 09/16/22 20:21 CT Abd and Pelvis [CT abd pelvis wo con] Stat Laboratory Results WBC 5.25 K/ul (4.8-10.8) 09/20/22 06:09 RBC 3.99 M/uL (4.70-6.10) L 09/20/22 06:09 Hgb 11.5 g/dl (14.0-18.0) L 09/20/22 06:09 Hct 34.6 % (42.0-52.0) L 09/20/22 06:09 MCV 86.7 fL (80.0-100.0) 09/20/22 06:09 MCH 28.8 pg (25.0-34.0) 09/20/22 06:09 MCHC 33.2 g/dL (32.0-36.0) 09/20/22 06:09 RDW Std Deviation 48.0 fL (36.4-46.3) H 09/20/22 06:09 RDW Coeff of Joey 15.1 % (11.5-14.5) H 09/20/22 06:09 Plt Count 102 K/uL (130-400) L 09/20/22 06:09 MPV 10.4 fL (9.4-12.4) 09/20/22 06:09 Immature Gran % (Auto) 0.4 % 09/17/22 05:54 Neut % (Auto) 80.4 % 09/17/22 05:54 Lymph % (Auto) 7.8 % 09/17/22 05:54 [place] % (Auto) 9.9 % 09/17/22 05:54 Eos % (Auto) 0.9 % 09/17/22 05:54 Baso % (Auto) 0.6 % 09/17/22 05:54 Neut # (Auto) 6.30 K/uL (1.40-6.50) 09/17/22 05:54 Lymph # (Auto) 0.61 K/uL (1.2-3.4) L 09/17/22 05:54 [place] # (Auto) 0.78 K/uL (0.11-0.59) H 09/17/22 05:54 Eos # (Auto) 0.07 K/uL (0-0.50) 09/17/22 05:54 Baso # (Auto) 0.05 K/uL (0-0.2) 09/17/22 05:54 Immature Gran # (Auto) 0.03 K/uL (0.01-0.20) 09/17/22 05:54 PT 11.9 Seconds (9.0-12.0) 09/16/22 16:21 INR 1.1 (0.9-1.1) 09/16/22 16:21 APTT 30.2 Seconds (21.0-31.0) 09/20/22 06:09 PTT Ratio 1.1 09/20/22 06:09 Sodium 141 mmol/L (136-145) 09/20/22 06:09 Potassium 3.7 mmol/L (3.5-5.1) 09/20/22 06:09 Chloride 104 mmol/L (98-107) 09/20/22 06:09 Carbon Dioxide 28 mmol/L (21-32) 09/20/22 06:09 Anion Gap 9 (3-11) 09/20/22 06:09 BUN 66 mg/dl (6-23) H 09/20/22 06:09 Creatinine 4.15 mg/dl (0.6-1.4) H 09/20/22 06:09 Est Cr Clr Drug Dosing 20.6 ml/min 09/20/22 06:09 Est GFR ( Amer) 16.0 ml/min 09/20/22 06:09 Est GFR (Non-Af Amer) 13.8 ml/min 09/20/22 06:09 BUN/Creatinine Ratio 15.9 (10-20) 09/20/22 06:09 Glucose 101 mg/dl (70-99(Fasting)) H 09/20/22 06:09 POC Glucose 100 mg/dl (70-99) H 09/20/22 07:31 Calcium 9.1 mg/dl (8.6-10.3) 09/20/22 06:09 Phosphorus 4.6 mg/dl (2.5-4.9) 09/19/22 04:14 Magnesium 2.2 mg/dl (1.7-2.4) 09/19/22 04:14 Total Bilirubin 0.9 mg/dl (0.2-1.0) 09/18/22 06:18 AST 18 U/L (13-39) 09/18/22 06:18 ALT 22 U/L (7-52) 09/18/22 06:18 Alkaline Phosphatase 115 U/L (34-104) H 09/18/22 06:18 Troponin I High Sens 45.5 pg/ml (0-20) H 09/17/22 05:54 Total Protein 6.4 gm/dl (6.0-8.3) 09/18/22 06:18 Albumin 3.4 gm/dl (3.4-5.0) 09/18/22 06:18 Globulin 3.0 gm/dl (2.5-4.0) 09/18/22 06:18 Albumin/Globulin Ratio 1.1 (0.9-2) 09/18/22 06:18 Lipase 10 U/L (11-82) L 09/16/22 16:21 Urine Color Yellow 09/16/22 16:25 Urine Appearance Clear (Clear) 09/16/22 16:25 Urine pH 5.5 (4.5-7.5) 09/16/22 16:25 Ur Specific [place] 1.012 (1.000-1.030) 09/16/22 16:25 Urine Protein 2+ (Negative) H 09/16/22 16:25 Urine Glucose (UA) 1+ (Negative) H 09/16/22 16:25 Urine Ketones Negative (Negative) 09/16/22 16:25 Urine Blood Negative (Negative) 09/16/22 16:25 Urine Nitrite Negative (Negative) 09/16/22 16:25 Urine Bilirubin Negative (Negative) 09/16/22 16:25 Urine Urobilinogen Negative (Negative) 09/16/22 16:25 Ur Leukocyte Esterase Negative (Negative) 09/16/22 16:25 Urine WBC (Auto) 1-5 /hpf (0-5) 09/16/22 16:25 Urine RBC (Auto) 0-4 /hpf (0-4) 09/16/22 16:25 U Hyaline Cast (Auto) 1-5 /lpf (0-5) 09/16/22 16:25 U Epithel Cells (Auto) 10-20 /lpf (0-5) H 09/16/22 16:25 Urine Bacteria (Auto) Negative (Negative) 09/16/22 16:25 Adenovirus (PCR) Not Detected (NotDetected) 09/16/22 18:00 Anaplasma Smear See Comment 09/16/22 17:31 Babesia Smear See Comment 09/16/22 17:31 Babesia microti DNA PCR Not Detected (Not Detected) 09/16/22 17:31 B. pertussis DNA (PCR) Not Detected (NotDetected) 09/16/22 18:00 B.parapertussis DNA PCR Not Detected (NotDetected) 09/16/22 18:00 Lyme Disease IgG Ab Negative (Negative) 09/16/22 17:31 Lyme Disease IgM Ab Negative (Negative) 09/16/22 17:31 C. pneumoniae DNA (PCR) Not Detected (NotDetected) 09/16/22 18:00 Coronavirus OC43 (PCR) Not Detected (NotDetected) 09/16/22 18:00 Coronavirus HKU1 (PCR) Not Detected (NotDetected) 09/16/22 18:00 Coronavirus 229E (PCR) Not Detected (NotDetected) 09/16/22 18:00 SARS-CoV-2 (PCR) Not Detected (NotDetected) 09/16/22 18:00 Coronavirus NL63 (PCR) Not Detected (NotDetected) 09/16/22 18:00 Human Metapneumovir PCR Not Detected (NotDetected) 09/16/22 18:00 Influenza Type A (PCR) Not Detected (NotDetected) 09/16/22 18:00 Influenza Type B (PCR) Not Detected (NotDetected) 09/16/22 18:00 M. pneumoniae (PCR) Not Detected (NotDetected) 09/16/22 18:00 Parainfluenza 1 (PCR) Not Detected (NotDetected) 09/16/22 18:00 Parainfluenza 2 (PCR) Not Detected (NotDetected) 09/16/22 18:00 Parainfluenza 3 (PCR) Not Detected (NotDetected) 09/16/22 18:00 Parainfluenza 4 (PCR) Not Detected (NotDetected) 09/16/22 18:00 RSV (PCR) Not Detected (NotDetected) 09/16/22 18:00 Entero/Rhino (PCR) Not Detected (NotDetected) 09/16/22 18:00 SARS-CoV-2, RNA, NAAT NEGATIVE (NEGATIVE) 09/16/22 16:28 Impressions Chest X-Ray 09/16/22 16:10 XR chest 1V portable HISTORY: Chest pain, nonspecific COMPARISON: Chest 12/01/2021. FINDINGS: No pneumothorax. No pleural effusions. The cardiac silhouette remains enlarged. There is an aortic valve prosthesis and a left-sided pacemaker/defibrillator. No evidence for pulmonary edema. No new focal lung consolidations to suggest a pneumonia. No acute fractures identified. IMPRESSION: Stable cardiomegaly. Otherwise, no acute process within the chest. ACT 112: Negative or not required by law. Electronically signed by: Tremaine Blackmon M.D. 09/16/2022 4:43 PM Gallbladder Ultrasound 09/16/22 16:12 ULTRASOUND RIGHT UPPER QUADRANT ABDOMEN CLINICAL HISTORY: Right upper quadrant abdominal pain. COMPARISON STUDY: Abdominal CT dated 09/17/2020. TECHNIQUE: Real-time, grayscale, and color flow sonography of the right upper quadrant of the abdomen was performed. Images are reviewed in the transverse and longitudinal planes. FINDINGS: Liver: The liver is normal in size and echotexture. There is no intrahepatic biliary ductal dilatation. The main portal vein is patent. Gallbladder: The gallbladder is distended and contains shadowing gallstones. The gallbladder wall is top normal in thickness measuring up to 3 mm. There is trace pericholecystic fluid. A sonographic Baumann's sign is reportedly present. The common bile duct measures up to 1.0 cm in diameter. Pancreas: Visualized portions of the pancreatic head and body are normal in appearance. The splenic vein is patent. Right kidney: Survey images of the right kidney demonstrate cortical atrophy. Increased echotexture suggests medical renal disease. There is no hydronephrosis. Ascites: None. IMPRESSION: 1. Cholelithiasis within a distended and abnormal appearing gallbladder. Acute cholecystitis is not excluded. Surgical consultation is advised. A nuclear hepatobiliary scan could be considered for confirmation. 2. No intrahepatic biliary ductal dilatation is seen. The common bile duct is dilated measuring 1.0 cm. ACT 112: Negative or not required by law. Electronically signed by: Guerrero Hebert M.D. 09/16/2022 5:46 PM Abdomen/Pelvis CT 09/16/22 20:21 Exam(s): CT ABDOMEN + PELVIS Without Contrast EXAM: CT Abdomen and Pelvis Without Intravenous Contrast CLINICAL HISTORY: Reason for exam: abd pain. TECHNIQUE: Axial computed tomography images of the abdomen and pelvis without intravenous contrast. CTDI is 27.76 mGy and DLP is 1534.77 mGy-cm. Automated exposure control was utilized for the study. A dose lowering technique was utilized adhering to the principles of ALARA. COMPARISON: No relevant prior studies available. FINDINGS: Lung bases: Unremarkable. No mass. No consolidation. ABDOMEN: Liver: Unremarkable. Gallbladder and bile ducts: Mild pneumobilia, correlate for any history of biliary intervention. Cholelithiasis. No ductal dilation. Pancreas: Unremarkable. No ductal dilation. Spleen: Unremarkable. No splenomegaly. Adrenals: Unremarkable. No mass. Kidneys and ureters: LEFT renal cyst measures 3.4 x 3.6 cm. No obstructing stones. No hydronephrosis. Stomach and bowel: Diverticulosis, without acute diverticulitis. No small bowel obstruction. No free intraperitoneal air. PELVIS: Appendix: Normal appendix. Bladder: Unremarkable. No stones. Reproductive: Unremarkable as visualized. ABDOMEN and PELVIS: Intraperitoneal space: Unremarkable. No free air. No significant fluid collection. Bones/joints: Degenerative changes of the spine. No acute fracture. No dislocation. Soft tissues: Small fat-containing bilateral inguinal hernias. Vasculature: Atherosclerotic changes of the aorta. No abdominal aortic aneurysm. Lymph nodes: Unremarkable. No enlarged lymph nodes. IMPRESSION: 1. Normal appendix. 2. Mild pneumobilia, correlate for any history of biliary intervention. Cholelithiasis. 3. Diverticulosis, without acute diverticulitis. No small bowel obstruction. No free intraperitoneal air. Electronically signed by: Yg Duran MD 09/16/22 22:00 PM Hospital Course (1) Acute cholecystitis: (2) CKD (chronic kidney disease) stage 4, GFR 15-29 ml/min: (3) Chronic atrial fibrillation: (4) DM type 2 (diabetes mellitus, type 2): Plan 67-year-old male with multiple medical problems as below presented to ED with abdominal pain and was found to have acute cholecystitis which was managed conservatively with IV antibiotics per surgery given his high risk for surgery. Patient improved with IV ertapenem. His symptoms have completely resolved. He is tolerating low-fat diet well without issues. No N/V/abd pain. Ambulating without issues and declines any discharge needs. Surgery recommended 14 day of antibiotics with OP follow up with the surgeon at [facility] for consideration of OP cholecystectomy. He is comfortable and stable for discharge home. Discharging on renally dosed cefuroxime/metron to complete antibiotic course. His CKD4 has been stable at the time of discharge and recommended OP follow up with nephrology. Right upper quadrant ultrasound 1. Cholelithiasis within a distended and abnormal appearing gallbladder. Acute cholecystitis is not excluded. Surgical consultation is advised. A nuclear hepatobiliary scan could be considered for confirmation. 2. No intrahepatic biliary ductal dilatation is seen. The common bile duct is dilated measuring 1.[address] abdomen pelvis 1. Normal appendix. 2. Mild pneumobilia, correlate for any history of biliary intervention.C holelithiasis. 3. Diverticulosis, without acute diverticulitis. No small bowel obstruction. No free intraperitoneal air. Acute cholecystitis/symptomatic cholelithiasis-imaging studies as above. Seen by surgery who did not recommend surgical intervention at this time but recommended trial of antibiotics and clear liquid diet. He improved and all his symptoms resolved. S/p IV ertapenem inhouse and is being discharged on renally dosed cefuroxime/metron to complete 14 day course per surgery. Recommended low fat diet and [facility] of cholecyst[facility] given his extensive cardiac history, where he was evaluated in the past. PAM on CKD4-creatinine has come to baseline of around 4. Cr 4-> 4.5->4.3->4.1. Seen by nephro. Recommend close OP follow up with repeat lab in a week. Essential hypertension- BP stable, continue home meds. Recommend follow up with his nepro/PCP if his lisinopril might be changed to some other hypertensive given his CKD4. Troponin elevation secondary to above in the setting of kidney dysfunction Chronic systolic heart failure secondary to nonischemic cardiomyopathy status post ICD- patient euvolemic, no exacerbation-no chest pain or shortness of breath History of aortic stenosis status post bioprosthetic AVR H/o embolic CVA History of atrial fibrillation on on Eliquis-continue home amiodarone, Toprol. On eliquis renally dosed per cardio note 12/2021. ARPIT on CPAP-continue CPAP. DM 2 on insulin-A1c 7.1. Continue home insulin. Total Time Total Time Spent Total Time Spent (In Minutes): 40 Discharge Plan Discharge Items Patient Disposition: Home - Self-Care Reason For Visit: CP TROP ELEV Discharge Diagnosis: Acute cholecystitis, CKD4, DM2 Activity: Resume your previous activity Non-emergency contact: Primary Care Provider and Surgeon Call non-emergency contact if: you have any medication questions, your symptoms worsen, your pain is concerning for you and you have a fever Follow-up/Referrals: Mirlande Henning MD [Primary Care Provider] - Diet: Carb Consistent or DM2, Low Fat and Low Sodium (2gm) Addtl Attending Provider Instructions: Continue the antibiotic as prescribed for 10 days starting tonight. Continue low fat diet for now given the gallbladder inflammation. Follow up with your surgeon at [facility] for consideration of the gall bladder surgery Follow up with your kidney doctor Recommend repeat blood work (BMP) in a week and follow with the family doctor Pending Studies at Discharge: No Stand-Alone Forms: My [facility] [employer], Smoking Cessation Medications and DC Order Prescriptions: New cefuroxime axetil 250 mg Tablet 250 mg PO Q12 10 Days Qty: 20 0RF metronidazole 500 mg Tablet 500 mg PO TID 10 Days Qty: 30 0RF Continued apixaban 2.5 mg tablet 2.5 mg PO BID aspirin 81 mg Tablet,Delayed Release (Dr/Ec) 81 mg PO QAM pantoprazole [Protonix] 40 mg Tablet,Delayed Release (Dr/Ec) 40 mg PO QAM ipratropium-albuterol 0.5 mg-3 mg(2.5 mg base)/3 mL Solution For Nebulization 3 ml INHALATION QID PRN (Reason: Shortness Of Breath Or Wheezing) albuterol sulfate [ProAir HFA] 90 mcg/actuation Hfa Aerosol Inhaler 2 puff INHALATION Q4H PRN (Reason: Shortness Of Breath Or Wheezing) insulin lispro [Humalog KwikPen Insulin] 100 unit/mL insulin pen 0 sliding scale dose subcut TIDM Rx Instructions: 9 units with breakfast, 27 units with lunch and dinner, 8 units with bedtime snack plus CF 1:25 over 150mg/dl atorvastatin 80 mg tablet 80 mg PO QPM torsemide 20 mg tablet See Rx Instructions .ROUTE .COMPLEX Rx Instructions: TAKES 40 MG QAM, THEN 20 MG [id number]. potassium chloride 20 mEq tablet extended release 20 meq PO .ON HOLD Rx Instructions: on hold..if resuming take in evening lisinopril 20 mg tablet 20 mg PO HS allopurinol 100 mg tablet 100 mg PO QAM alprazolam 0.5 mg tablet 0.5 - 1 mg PO HS folic acid 1 mg tablet 1 mg PO QAM amiodarone 200 mg tablet 200 mg PO AMHS metoprolol succinate [Toprol XL] 100 mg Tablet Extended Release 24 Hr 100 mg PO BID Qty: 60 1RF insulin glargine [Lantus Solostar U-100 Insulin] 100 unit/mL (3 mL) insulin pen 32 unit SUBCUT BID Discharge Orders: Discharge Order (Routine); Ordered 09/20/22 Ordered By: Eric Fabian/Other Patient Handouts: Managing Type 2 Diabetes, Special Foot Care for Diabetes Admission Data Admit Date/Time: 09/16/22 22:15 Attending Provider: Eric Sewell Admit Provider: Claudio Vazquez Primary Care Provider: Mirlande Henning Other Providers: Claudio Vazquez ; Catarino Burgos ; Moses Ramos
[2022-09-20] MEDS ORDERED: cefUROXime axetil 250 MG TABLET PO SCH ×2 (11:30→21:00)
== END 2022-09-20 12:17 | disposition home or self-care (01) | DRG 445 ==
LOC: ED 16:04 → 2S 16:04